=== PATIENT | male | born 1970 | race Caucasian/White ===

== ENCOUNTER 2023-02-24 13:20 | Outpatient (OUT) | payer OTHER, MEDICARE, SELFPAY ==
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
== END 2023-02-24 13:21 ==
LOC: RAD 13:24
PROVIDERS: Visit Provider Student in an Organized Health Care Education/Training Program
DX: M79.671 Pain in right foot (principal)
CPT/HCPCS: 73630

== ENCOUNTER 2024-08-29 03:38 | Emergency (ER) | payer MEDICARE, MEDICAID, SELFPAY ==
[2024-08-29 03:44] VITALS: BP 142/71; PULSE 93; TEMP 36.9; O2SAT 95; BMI 40.8
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
--- NOTE | 2024-08-29 04:20 | PC.NURSE ---
PATIENT ALERT AND ORIENTED. C/O BILAT FOOT PAIN DUE TO NEUROPATHY. STATES HE HAS TAKEN HIS PRESCRIBED PREGAMBLIN THHAT USUALLY KEEPS HIM AT BASELINE BUT THE MEDICATION HAS NOT BEEN ABLE TO CONTROL HIS PAIN FOR 3 DAYS. HE HAS NOT BEEN ABLE TO SLEEP. REPORTS PAIN 10/
[2024-08-29] MEDS: KETOROLAC TROMETHAMINE 60 MG/2 ML VIAL IM (04:30)
== END 2024-08-29 04:36 | disposition home or self-care (01) ==
PROVIDERS: Emergency Provider Emergency Medicine; PCP Family Medicine
DX: E11.40 Type 2 diabetes mellitus with diabetic neuropathy, unspecified (principal); Z79.4 Long term (current) use of insulin
CPT/HCPCS: 96372; 99284; J1885

== ENCOUNTER 2024-12-07 02:12 | Emergency (ER) | payer MEDICARE, MEDICAID, SELFPAY ==
[2024-12-07 02:16] VITALS: BP 186/95; PULSE 84; TEMP 36.5; O2SAT 98; BMI 38.5
--- OUTSIDE RECORDS SUMMARY | 2024-12-07 02:20 | XMS_ITS ---
Author Organization OHIP Support Name Relationship Address Phone JANN, TRESSA Spouse Unknown Unavailable JANN, TRESSA Spouse Unknown Unavailable JANN, TRESSA Spouse Unknown [phone] Jann, Tressa Spouse [address] [place] [address] + JANN, TRESSA Spouse Unknown Unavailable JANN, TRESSA Spouse Unknown Unavailable JANN, TRESSA Unknown Unknown +[phone] JANN, TRESSA Unknown Unknown +[phone] JANN, TRESSA Unknown Unknown +[phone] Jann, Tressa Spouse [address] [place] [address] + JANN, TRESSA Spouse Unknown Unavailable JANN, TRESSA Unknown Unknown +[phone] JANN, TRESSA Unknown Unknown +[phone] JANN, TRESSA Spouse Unknown +[phone] JANN, TRESSA Spouse Unknown +[phone] JANN, TRESSA Spouse Unknown +[phone] JANN, TRESSA Spouse Unknown +[phone] JANN, TRESSA Unknown Unknown +[phone] JANN, TRESSA Unknown Unknown +[phone] JANN, TRESSA Spouse Unknown +[phone] Jann, Tressa Spouse [address] [place] [address] + JANN, TRESSA Unknown Unknown +[phone] JANN, TRESSA Unknown Unknown +[phone] JANN, TRESSA Unknown Unknown +[phone] JANN, TRESSA Unknown Unknown +[phone] JANN, TRESSA Unknown Unknown +[phone] JANN, TRESSA Spouse Unknown +[phone] JANN, TRESSA Unknown Unknown +[phone] JANN, TRESSA Unknown Unknown +[phone] JANN, TRESSA Unknown Unknown +[phone] JANN, TRESSA Unknown Unknown [phone] JANN, TRESSA Unknown Unknown +[phone] JANN, TRESSA Unknown Unknown +[phone] JANN, TRESSA Unknown Unknown +[phone] JANN, TRESSA Unknown Unknown +[phone] JANN, TRESSA Unknown Unknown +[phone] JANN, TRESSA Unknown Unknown +[phone] JANN, TRESSA Spouse Unknown +[phone] JANN, TRESSA Unknown Unknown +[phone] JANN, TRESSA Unknown Unknown +[phone] JANN, TRESSA Unknown Unknown +[phone] JANN, TRESSA Unknown Unknown [phone] JANN, TRESSA Unknown Unknown +[phone] JANN, TRESSA Unknown Unknown +[phone] JANN, TRESSA Spouse Unknown +[phone] JANN, TRESSA Unknown Unknown +[phone] JANN, TRESSA Unknown Unknown +[phone] JANN, TRESSA Spouse Unknown +[phone] JANN, TRESSA Spouse Unknown +[phone] Jann, Tressa Spouse [address] [place] [address] + JANN, TRESSA Spouse Unknown +[phone] JANN, TRESSA Spouse Unknown +[phone] JANN, TRESSA Spouse Unknown +[phone] JANN, TRESSA Spouse Unknown +[phone] JANN, TRESSA Spouse Unknown +[phone] JANN, TRESSA Spouse Unknown +[phone] JANN, TRESSA Spouse Unknown +[phone] JANN, TRESSA Spouse Unknown +[phone] Jann, Tressa Spouse [address] [place] [address] + JANN, TRESSA Spouse Unknown +[phone] JANN, TRESSA Spouse Unknown +[phone] JANN, TRESSA Unknown Unknown +[phone] JANN, TRESSA Spouse Unknown +[phone] JANN, TRESSA Unknown Unknown +[phone] JANN, TRESSA Spouse Unknown +[phone] Jann, Tressa Spouse [address] [place] [address] + JANN, TRESSA Spouse Unknown +[phone] JANN, TRESSA Spouse Unknown +[phone] JANN, TRESSA Spouse Unknown +[phone] Care Team Providers Care Roll Contour Grinder Name Role Phone ADAMS TATE Attending Unavailable SIVAN DUARTE Attending Unavailable SIVAN DUARTE Referring Unavailable JENIFER, JUAN Referring Unavailable JENIFER, JUAN Referring Unavailable TRACE CARTERIN Attending Unavailable MOUKARBEL, MALI Admitting Unavailable MOUKARBEL, MALI Attending Unavailable YVONNE, BERTIN Referring Unavailable JENIFER, JUAN Referring Unavailable JENIFER, JUAN Referring Unavailable MOREL, KARENH Attending Unavailable MOREL, KARENH Attending Unavailable MOUKARBEL, MALI Attending Unavailable JENIFER, JUAN Attending Unavailable PERNE, JOY Attending Unavailable PERNE, JOY Attending Unavailable MOREL, KARENH Attending Unavailable JENIFER, JUAN Referring Unavailable MOUKARBEL, MALI Referring Unavailable CARTER, JIAWALLYIN Admitting Unavailable CARTER, TRACEIN Attending Unavailable ADAMS TATE Attending Unavailable HENLEY, JONEL Admitting Unavailable HENLEY, JONEL Attending Unavailable HENLEY, JONEL Referring Unavailable YVONNE, BERTIN Referring Unavailable YVONNE, BERTIN Referring Unavailable TED COOLEY Attending Unavailable PERGORDON, JOY Referring Unavailable IGGY HALL Attending Unavailable TRACE CARTERIN Attending Unavailable GI MONDRAGON Attending Unavailable PETKORINA IDANIA Maeve Referring Unavailable GI MONDRAGON Attending Unavailable GI MONDRAGON Attending Unavailable GI MONDRAGON Attending Unavailable GI MONDRAGON Attending Unavailable MELISSA MONDRAGONANDRA H Attending Unavailable GI MONDRAGON Attending Unavailable MELISSA MONDRAGONANDRA Sellers Attending Unavailable GI MONDRAGON H Attending Unavailable PETZNICK, IDANIA M Attending Unavailable MELISSA MONDRAGONANDRA Sellers Attending Unavailable MELISSA MONDRAGONANDRA Sellers Attending Unavailable MELISSA MONDRAGONANDRA H Attending Unavailable GI MONDRAGON H Attending Unavailable GI MONDRAGON H Attending Unavailable PETZNICK, IDANIA M Attending Unavailable GI MONDRAGON Attending Unavailable MELISSA MONDRAGONANDRA Marlo Attending Unavailable MELISSA MONDRAGONANDRA H Attending Unavailable PETZNICK, IDANIA M Attending Unavailable PETZNICK, IDANIA M Attending Unavailable PETZNICK, IDANIA M Referring Unavailable GI MONDRAGON Attending Unavailable PETZNICK, IDANIA M Attending Unavailable PETZNICK, IDANIA M Attending Unavailable PETZNICK, IDANIA M Referring Unavailable GI MONDRAGON Attending Unavailable PETZNICK, IDANIA M Attending Unavailable PETZNICK, IDANIA M Primary Care Unavailable PETZNICK, IDANIA Attending Unavailable PETZNICK, IDANIA Admitting Unavailable PETZNICK, IDANIA M Primary Care Unavailable MEREDITH KERR Attending Unavailable PETZNICK, IDANIA M Primary Care Unavailable PETZNICK, IDANIA M Primary Care Unavailable BASIL DE LOS SANTOS Attending Unavailable PETZNICK, IDANIA M Primary Care Unavailable PETZNICK, IDANIA M Primary Care Unavailable Venkat Burgos Attending Unavailable Petznick, Idania Primary Care Unavailable Venkat Burgos Admitting Unavailable KeisterTed Admitting Unavailable KeisterTed Attending Unavailable Petznick, Idania Primary Care Unavailable Delano Mondragon Admitting Unavailable Delano Mondragon Attending Unavailable Petznick, Idania Primary Care Unavailable Petznick, Idania Primary Care Unavailable Maxime Magana Admitting UnavailMaxime Worthy Attending UnavailChintan Finnegan Consulting Unavailable Jf Liu Consulting Unavailable Marielos Black Consulting Unavailable dAa Uriostegui Consulting Unavailable Yocasta Villalba Consulting Unavailable Gi Mondragon Consulting Unavailable Gi Mondragon Attending Unavailable Petlizbethick, Idania Primary Care Unavailable Gi Mondragon Admitting Unavailable Gi Mondragon Admitting Unavailable Gi Mondragon Attending Unavailable Petznick, Idania Primary Care Unavailable Purpose PROBLEMS DATE TYPE CONDITION / CODE ATTENDING STATUS [facility] 12/05/2024 Unknown Pain in right fo ot / M79.671(ICD-10) [facility] 12/05/2024 Unknown Other chronic pa in / G89.29(ICD-10) [facility] 12/05/2024 Unknown Pain in left blake t / M79.672(ICD-10) [facility] 11/27/2024 Unknown Localized swelli ng, 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, right lower limb / R22.41(ICD-10) Venkat Burgos [facility] 11/27/2024 Unknown Encounter for is maggie of repeat prescription / Z76.0(ICD-10) [facility] 11/27/2024 Unknown Med Refill / FREETEXT(AOF) [facility] 11/23/2024 Admitting Diagnosis Peripheral vascular disease, unspecified / I73.9(ICD-10) TED COOLEY [facility] 11/23/2024 Admitting Diagnosis Encounter for other preprocedural examination / Z01.818(ICD-10) COOLEY [facility] 11/23/2024 Admitting Diagnosis Type 2 diabetes mellitus with diabetic neuropathy, unspecified / E11.40(ICD-10) [facility] 11/23/2024 Admitting Diagnosis Type 2 diabetes mellitus with other diabetic neurological complication / E11.49(ICD-10) [facility] 11/23/2024 Admitting Diagnosis Neuralgia and neuritis, unspecified / M79.2(ICD-10) [facility] 10/31/2024 Admitting Diagnosis Type 2 diabetes mellitus with foot ulcer / E11.621(ICD-10) [facility] 10/31/2024 Admitting Diagnosis Non-pressure chronic ulcer of other part of right foot with unspecified severity / L97.519(ICD-10) [facility] 10/29/2024 Unknown Local infection of the skin and subcutaneous tissue, unspecified / L08.9(ICD-10) [facility] 10/29/2024 Unknown Cellulitis of ri ght lower limb / L03.115(ICD-10) [place] [facility] 10/29/2024 Unknown End stage renal disease / N18.6(ICD-10) [place] [facility] 10/29/2024 Unknown Dependence on re nal dialysis / Z99.2(ICD-10) [place] [facility] 10/29/2024 Unknown Hypertensive chr onic kidney disease with stage 5 chronic kidney disease or end stage renal disease / I12.0(ICD-10) [place] [facility] 10/29/2024 Unknown Type 2 diabetes mellitus with diabetic chronic kidney disease / E11.22(ICD-10) [facility] 10/29/2024 Unknown armament repairer (curre nt) use of insulin / Z79.4(ICD-10) Maxime Magana [facility] 10/25/2024 Unknown Type 2 diabetes mellitus with foot ulcer / E11.621(ICD-10) [facility], [facility] 10/25/2024 Unknown Non-pressure chr onic ulcer of other part of right foot with unspecified severity / L97.519(ICD-10) [facility], [facility] 10/25/2024 Unknown Type 2 diabetes mellitus with diabetic polyneuropathy / E11.42(ICD-10) [facility], [facility] 10/25/2024 Unknown Foot Pain / FREETEXT(AOF) [facility], [facility] 10/25/2024 Unknown Wound check / UNK(Unknown) [facility], [facility] 10/17/2024 Admitting Diagnosis Nonspecific urethritis / N34.1(ICD-10) LESLIE MOREL [facility] 09/12/2024 Admitting Diagnosis Generalized enlarged lymph nodes / R59.1(ICD-10) SIVAN DUARTE [facility] 09/05/2024 Admitting Diagnosis Post-op / 483() ERICK CARTER [facility] 08/28/2024 Unknown Pain in right lo wer leg / M79.661(ICD-10) Delano Mondragon [facility] 08/08/2024 Admitting Diagnosis Enlarged lymph nodes, unspecified / R59.9(ICD-10) ERICK CARTER [facility] 08/22/2024 Admitting Diagnosis Localized enlarged lymph nodes / R59.0(ICD-10) NA [facility] 08/22/2024 Admitting Diagnosis Abnormal findings on diagnostic imaging of other specified body structures / R93.89(ICD-10) [facility] 07/28/2024 Admitting Diagnosis Abnormal findings on diagnostic imaging of other abdominal regions, including retroperitoneum / R93.5(ICD-10) NA [facility] 07/11/2024 Admitting Diagnosis Encounter for preprocedural cardiovascular examination / Z01.810(ICD-10) MALI ALVAREZ [facility] 06/26/2024 Admitting Diagnosis Abnormal result of other cardiovascular function study / R94.39(ICD-10) MALI ALVAREZ [facility] 07/11/2024 Admitting Diagnosis Tobacco use / Z72.0(ICD-10) JENIFER [facility] 07/11/2024 Admitting Diagnosis Essential (primary) hypertension / I10(ICD-10) JENIFER [facility] 06/14/2024 Admitting Diagnosis End stage renal disease / N18.6(ICD-10) JENIFER [facility] 06/14/2024 Admitting Diagnosis Dependence on renal dialysis / Z99.2(ICD-10) JENIFER [facility] 06/14/2024 Admitting Diagnosis Type 2 diabetes mellitus with diabetic chronic kidney disease / E11.22(ICD-10) JENIFER [facility] 08/10/2022 Admitting Diagnosis Non-pressure chronic ulcer of other part of right foot with fat layer exposed / L97.512(ICD-10) JENIFER [facility] 07/11/2024 Admitting Diagnosis Encounter for follow-up examination after completed treatment for conditions other than malignant neoplasm / Z09(ICD-10) JENIFER [facility] 05/02/2022 Admitting Diagnosis Mixed hyperlipidemia / E78.2(ICD-10) MALI ALVAREZ [facility] 06/20/2024 Admitting Diagnosis Encounter for screening for malignant neoplasm of colon / Z12.11(ICD-10) JONEL HENLEY [facility] 05/15/2024 Unknown Anxiety disorder , unspecified / F41.9(ICD-10) Ted Cabrera [facility] 06/18/2022 Admitting Diagnosis 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(ICD-10) ADAMS TATE [facility] 06/18/2022 Admitting Diagnosis Male erectile dysfunction, unspecified / N52.9(ICD-10) ADAMS TATE [facility] 2024 Admitting Diagnosis Encounter for screening for malignant neoplasm of prostate / Z12.5(ICD-10) ADAMS TATE [facility] 2024 Admitting Diagnosis Chronic kidney disease, stage 4 (severe) / N18.4(ICD-10) ADAMS TATE [facility] 01/05/2024 Admitting Diagnosis Benign prostatic hyperplasia without lower urinary tract symptoms / N40.0(ICD-10) NA [facility] PROCEDURES No Procedure Records Found VITAL SIGNS No Vital Signs Records Found RESULTS 36 Observed: 12/05/2024 2:26 PM Status: COMPLETED Source: [facility] REPOSITORY Pt contacted clinic to be se en sooner to discuss pain medication. At the moment there is not any sooner appointment. Patient is on the cancellation list and patient also educated to contact clinic as well to ask for cancellations. 36 Observed: 12/05/2024 1:27 PM Status: COMPLETED Source: [facility] REPOSITORY Patient contacted clinic ronald elise and telegraphic typewriter operator chief let patient know of Dr. Cooley's response. Patient states he has increased his dose a long time ago and it is not working. Patient states he will contact his PCP to receive pain medication until he has the procedure. 36 Observed: 12/05/2024 12:24 PM Status: COMPLETED Source: [facility] REPOSITORY Spke with Dr Yasir simon and he would like patient to increase dose to 20mg nightly like discussed at visit. Public Relations Officer called and left message for patient with new dosing instructions. Public Relations Officer also stated that medication changes are not done over the phone and any further changes will need to be discussed at an office visit. 36 Observed: 12/04/2024 2:29 PM Status: COMPLETED Source: [facility] REPOSITORY Patient contacted clinic and wanted to let you know that the medication is not working for his pain. Patient states he has been on it for two weeks. TELEPHONE Observed: 12/04/2024 12:00 AM Status: COMPLETED Source: [facility] REPOSITORY [id number] Evans Forte 0 1970 M Date Provider Department Center 12/04/2024 [id number] RIVERO PAIN [facility] Family History Problem Relation Age of Onset Breast cancer Mother Comments: age 53, METS to brain Heart disease Father Heart attack Father Comments: age 26 No Known Problems Sister Comments: half-sister Breast cancer Maternal Grandmother Crohn's disease Daughter Comments: perforated bowel Cancer Father's Brother Comments: Unknown type and region Family Status - Relation Status Age at Mother Father Sister Maternal Grandmother Daughter Father's Brother Alive US VENOUS DUPLEX LE RT Observed: 025 3:28 PM Status: COMPLETED Source: [facility] REPOSITORY [facility] [place] [address] [place] [address] Ultrasound Report Signed Patient: Evans Forte MR#: [id number] : 1970 Acct:[id number] Age/Sex: 54 / M ADM Date: 11/27/24 Loc: ER Room: Type: [facility] ER Attending Dr: Ordering Provider: Venkat Burgos DO Date of Service: 11/27/24 US/US venous duplex LE RT: right leg swelling Copies to: Venkat Burgos DO RIGHT LOWER EXTREMITY VENOUS DUPLEX INDICATION: Painful swollen legs Unilateral right lower extremity venous duplex Doppler study was obtained utilizing B-mode, color- flow and spectral Doppler. FINDINGS: The right common femoral, femoral, and popliteal veins showed adequate compressibility, color-flow and augmentation. The right posterior tibial veins were compressible, as well as proximal greater saphenous vein. The peroneal veins are not well visualized. The contralateral left common femoral vein was compressible with color-flow and augmentation. US/US venous duplex LE RT IMPRESSION: NO EVIDENCE OF DEEP VENOUS THROMBOSIS IN THE RIGHT LOWER EXTREMITY. NO SUPERFICIAL THROMBOPHLEBITIS WAS NOTED. Impression dictated by: Ramirez Jean M.D.11/28/2024 3:29 PM Dictation Location: [id number] Tech: Olamide Munoz Transcribed By: CATHLEEN 11/28/24 1529 Dictated By: Ramirez Jean MD 11/28/24 1528 Signed By: <Electronically signed by MD Ramirez Jean in OV> 11/28/24 1529 COMPLETE BLOOD COUNT AUTO DIFF Collected: 11/27/2024 11:01 PM Status: F Source: [facility] REPOSITORY TYPE CODE TESTS RESULT OUT OF RANGE REFERENCE UNITS LAB WBC White Blood Count 10.6 High 4.1-10.5 10*3/uL LAB UNWBC Uncorrected WBC 10.6 High 4.1-10.5 10*3/uL LAB RBC Red Blood Count 3.95 Normal 3.90-5.60 10*6/u L LAB HGB Hemoglobin 12.1 Low 13.0-17.0 g/dL LAB HCT Hematocrit 35.6 Low 38.8-50.0 % LAB MCV Mean Corpuscular Volume 90.1 Normal 83.5-101 fL LAB MCH Mean Corpuscular Hemoglobin 30.6 Normal 27.5-35.2 pg LAB MCHC Mean Corpuscular HGB Conc 33.9 Normal 32.5-35.6 g/dL LAB RDW Red Cell Distribution Width 15.0 High 12.0-14.8 % LAB PLT Platelet Count 400 Normal 150-450 10*3/uL LAB MPV Mean Platelet Volume 7.0 Normal 6.6-10.1 fL LAB MDW Monocyte Distribution Width 18.22 Normal 0.00-20.00 % LAB NE% Neutrophils % (Auto) 69.6 . % LAB LY% Lymphocytes % (Auto) 14.1 . % LAB MO% Monocytes % (Auto) 9.3 . % LAB EO% Eosinophils % (Auto) 6.0 . % LAB BA% Basophils % (Auto) 1.0 . % LAB NRBC% NRBC% 0.0 Normal 0-0.5 /100{WBC } LAB NE# Neutrophils # (Auto) 7.4 Normal 1.8-7.7 10*3/uL LAB LY# Lymphocytes # (Auto) 1.5 Normal 1.00-4.8 10*3/uL LAB MO# Monocytes # (Auto) 1.0 High 0.0-0.8 10*3/uL LAB EO# Eosinophils # (Auto) 0.6 High 0.0-0.45 10*3/uL LAB BA# Basophils # (Auto) 0.1 Normal 0.0-0.2 10*3/uL Performed By: #### CBC, ESR, CRP, BMP #### [facility] [address] [id number] [facility] ERYTHROCYTE SEDIMENTATION RATE Collected: 11/27/2024 11:01 PM Status: F Source: [facility] REPOSITORY TYPE CODE TESTS RESULT OUT OF RANGE REFERENCE UNITS LAB ESR Erythrocyte Sedimentation Rate 122 High 0-19 Result Comment: PERFORMED BY : [place] [id number] PATHOLOGIST BELL PERSON KIM ELLIOTT M.D. Performed By: #### CBC, ESR, CRP, BMP #### [facility] [address] [id number] [facility] BASIC METABOLIC PANEL Collected: 2024 11:01 PM Status: F Source: [facility] REPOSITORY TYPE CODE TESTS RESULT OUT OF RANGE REFERENCE UNITS LAB GLU Glucose 199 High 70-100 mg/dL Result Comment: Random Gluco se Reference Range is dependent on time and content of last meal. Glucose of more than 200 mg/dL in a nonstressed, ambulatory subject supports the diagnosis of Diabetes Mellitus. ADA recommended reference range LAB BUN Blood Urea Nitrogen 47 High 7-25 mg/dL LAB CREATT Creatinine 6.56 High 0.70-1.30 mg/dL LAB GFReNR Estimated GFR 9.418 mL/Min LAB NA Sodium 131 Low 136-145 mmol/L LAB K Potassium 3.9 Normal 3.5-5.1 mmol/L LAB CL Chloride 93 Low 98-107 mmol/L LAB CO2 Carbon Dioxide 24.7 Normal 21.0-31.0 mmol/L LAB GAP Anion Gap 17.2 High 6.0-15.0 meq/L LAB CA Calcium 9.1 Normal 8.6-10.3 mg/dL LAB CRCLPHA Creatinine Clr Calc Pharmacy 19.67 Performed By: #### CBC, ESR, CRP, BMP #### [facility] [address] [id number] [facility] C-REACTIVE PROTEIN Collected: 11:01 PM Status: F Source: [facility] REPOSITORY TYPE CODE TESTS RESULT OUT OF RANGE REFERENCE UNITS LAB CRP C-Reactive Protein 2.8 High 0.0-0.5 mg/dL Result Comment: PERFORMED BY : [place] [id number] PATHOLOGIST BELL PERSON KIM ELLIOTT M.D. Performed By: #### CBC, ESR, CRP, BMP #### [facility] [address] [id number] [facility] OFFICE VISIT Observed: 11/23/2024 1:30 PM Status: COMPLETED Source: [facility] REPOSITORY [id number] JannEvans B 0 1970 Date Provider Department Center 11/23/2024 TED WARREN PAIN [facility] Family History Problem Relation Age of Onset Breast cancer Mother Comments: age 53, METS to brain Heart disease Father Heart attack Father Comments: age 26 No Known Problems Sister Comments: half-sister Breast cancer Maternal Grandmother Crohn's disease Daughter Comments: perforated bowel Cancer Father's Brother Comments: Unknown type and region Family Status - Relation Status Age at Mother Father Sister Maternal Grandmother Daughter Father's Brother Alive Level of Service:90940 UT OFFICE/OUTPATIENT NEW MODERATE MDM 45 MINUTES (GC) Reason for Visit and Comments: New Patient [[id number]] - Neuropathy PROGRESS Observed: 11/23/2024 1:30 PM Status: COMPLETED Source: [facility] REPOSITORY Attestation signed by Ted Cooley MD at 11/24/2024 11:22 AM By using the attestations below, the signing clinician agrees that I have read and verify that the documentation has been personally reviewed by me and ensure that the documentation accurately reflects the encounter. GC: I personally saw this patient on the day of the encounter, performed the ceja portion(s) of the service and participated in the management and confirm the resident's documentation. Please note there may be an additional personal documentation from me. Additional Comments: Diagnosis Plan 1. Chronic painful diabetic neuropathy (CMS/HCC) amitriptyline (Elavil) 10 mg tablet 2. Diabetic neuropathy with neurologic complication (CMS/HCC) Ambulatory referral to Pain Medicine 3. Neuropathic pain MR thoracic spine wo contrast MR lumbar spine wo contrast amitriptyline (Elavil) 10 mg tablet 4. Preop examination MR thoracic spine wo contrast MR lumbar spine wo contrast 5. PVD (peripheral vascular disease) 6. Peripheral artery disease SPINAL CORD STIMULATOR (SCS): Patient has intractable pain and fulfilled ALL of the followin. Failed six months of conservative treatment modalities (pharmacologic (gabapentin, lyrica, cymbalta, qutenza, no surgical indication for diabetic neuropathy, psychologic or physical), if appropriate and not contraindicated. 2. Further surgical intervention is not indicated. 3. Psychological evaluation will be obtained with documentation clearly stating the patient is an appropriate candidate for SCS from a mental health perspective. 4. No contraindications to implantation exist such as sepsis or coagulopathy. 5. There are objective findings of pathology based on examination and/or imaging. 6. We had an extensive discussion with the patient about the SCS device, including the trial and implantation processes. We plan to have a percutaneous SCS trial. The trial will last for approximately 7 days. A SCS trial is successful if: 50% or more reduction in pain for at least two days; and improvement in functional status of the patient. If a successful trial, the permanent electrodes are placed at the same levels where the trial produced relief. [facility] [place] [address] Referral Source: self-referral, found spinal cord stimulator information online CC: Chief Complaint Patient presents with New Patient Neuropathy SUBJECTIVE: Evans Forte is a 54 y.o. male who presents for initial consultation chronic pain of the bilateral feet, right greater than left. The patient has had this pain for 10+ years . Initiating event was reported as no acute injury but chronic uncontrolled diabetes for 30+ years. Pain is located in the bilateral feet, right greater than left and is nonradicular. The pain has gradually worsened over time and is inadequately controlled at this time.. The pain quality is described as a burning pain. The pain is constant and can be consistent throughout the day no matter the activity, especially worse at night, however can spontaneously resolve. Today, the pain intensity is rated as a 10 on a scale of 0-10. Patient reports associated symptoms of numbness and tingling. Pain is alleviated with opioid medications. Pain is exacerbated with standing, walking, and sleeping. Pain interferes with ADLs. The patient reports sometimes 0 hours of uninterrupted sleep per night. He denies history of back issues, back surgery, radicular back pain. Medical history is significant for ESRD on dialysis Wednesday, pending kidney transplant, venous stasis, lymphedema, chronic right lower extremity ulcer, 30+ year history of diabetes mellitus, Charcot foot on the right status post surgical intervention, hyperlipidemia, hypertension, hypothyroidism, insomnia, neuropathy, obesity, pancreatitis, peripheral artery disease. Treatments previously trialed: patient has trialed tramadol with intermittent relief, Qutenza x 2 over 6 months without adequate relief longer than 1 week duration, [place] with fair relief, Lyrica with inadequate relief, gabapentin with inadequate relief, trazodone with inadequate relief, lorazepam with inadequate relief, Cymbalta with inadequate relief Pain Assessment Pain Assessment: 0-10 Pain Score: 10 - Worst possible pain Pain Type: Chronic pain, Neuropathic pain Pain Location: Foot Pain Orientation: Right, Left Pain Descriptors: Burning, Pins and needles, Tingling Pain Frequency: Constant/continuous Pain Onset: Ongoing Date Pain First Started: (> 10 years) Aggravating Factors: Walking, Standing Pain Interventions: Medication (See MAR) Response to Interventions: Lyrica, Gabapentin Past Medical History: Diagnosis Date Adrenal nodule left adrenal adenoma Anemia Anxiety Charcot foot due to diabetes mellitus ([facility]/HCC) Right, s/p reconstructive surgery Chronic sinusitis COVID-19 08/2023 Diabetic foot ulcers ([facility]) right Diabetic polyneuropathy ([facility]) Diabetic retinopathy ([facility]/HCC) ED (erectile dysfunction) ESRD (end stage renal disease) ([facility]) 11/23/2022 GERD (gastroesophageal reflux disease) Glaucoma History of tobacco use Hyperlipidemia Hypertension Hypogonadism in male Hypothyroidism Insomnia Neuropathy Obesity Osteomyelitis of ankle or foot, left, acute ([facility]) Pancreatitis x2 Past history of chewing tobacco use Peripheral artery disease Proteinuria Sleep apnea Type 2 diabetes mellitus ([facility]/HCC) Vitamin D deficiency Patient Active Problem List Diagnosis Adenoma of left adrenal gland History of pancreatitis Open wound of left foot Type 2 diabetes mellitus ([facility]/HCC) Charcot's joint of foot Hypertension, essential Acquired hypothyroidism Hyperlipidemia Vitamin D deficiency Libido, decreased Erectile dysfunction Hypogonadism male Diabetic neuropathic arthropathy ([facility]/HCC) Diabetic neuropathy with neurologic complication ([facility]/HCC) End stage renal disease ([facility]/HCC) Glaucoma Hypoglycemia due to type 2 diabetes mellitus ([facility]/HCC) Iron deficiency anemia 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, 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, trunk halfway current use of insulin (CMS/HCC) Microalbuminuria Mild left ventricular systolic dysfunction Morbid obesity ([facility]/HCC) Obstructive sleep apnea syndrome Osteomyelitis ([facility]/HCC) Polyneuropathy due to type 2 diabetes mellitus ([facility]/HCC) Ulcer of right foot with fat layer exposed ([facility]) Pure hypercholesterolemia 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, unspecified eye ([facility]) PVD (peripheral vascular disease) Adrenal nodule Anxiety Insomnia Osteomyelitis of left foot ([facility]/HCC) Diabetic retinopathy ([facility]) Past history of chewing tobacco use Mild nonproliferative diabetic retinopathy associated with type 2 diabetes mellitus ([facility]/HCC) Diabetic foot ulcers ([facility]) Chronic sinusitis COVID-19 Anemia Preop examination Cardiovascular stress test abnormal Current tobacco use Enlarged lymph node Lymphedema Venous stasis dermatitis Neuropathic pain Past Surgical History: Procedure Laterality Date AV FISTULA PLACEMENT 09/2023 Left arm AV fistula CARDIAC CATHETERIZATION 07/15/2018 Normal coronary arteries. Normal left ventricular function. False positive stress perfusion exam. COLONOSCOPY 09/03/2022 3 polyps status post polypectomy ranging from 6mm to 1-1/2 cm. Poor prep COLONOSCOPY 06/18/2022 Poor prep COLONOSCOPY 02/22/2024 FOOT SURGERY Right 12/05/2018 multple INSERTION / REMOVAL / REPLACEMENT VENOUS ACCESS CATHETER 09/16/2023 Hemodialysis catheter PERITONEAL CATHETER INSERTION 11/06/2022 PERITONEAL CATHETER REMOVAL 10/13/2023 TOE AMPUTATION Left Left lesser toe WOUND DEBRIDEMENT Right 12/24/2023 WOUND DEBRIDEMENT WITH APPLICATION OF BILAYER SKIN GRAFT RIGHT WOUND DEBRIDEMENT Right 01/24/2024 Ulceration to the right heel and 1st MPJ WOUND DEBRIDEMENT Right 02/29/2024 Ulceration to the right heel and 1st MPJ WOUND DEBRIDEMENT Right 03/30/2024 Ulceration to the right heel and 1st MPJ WOUND DEBRIDEMENT Right 05/04/2024 Ulceration to the right heel and 1st MPJ WOUND DEBRIDEMENT Right 05/18/2024 Ulceration to the right heel and 1st MPJ WOUND DEBRIDEMENT Right 06/08/2024 plantar medial right heel Allergies Allergen Reactions Adhesive Tape-Silicones Rash Latex Rash If on for long periods of time Vancomycin Hives Other reaction(s): Unknown Adhesive Rash Haloperidol Anxiety Kintyre Oil GI intolerance Runny nose, watery eyes Family History Problem Relation Name Age of Onset Breast cancer Mother age 53, METS to brain Heart disease Father Evans gifford Heart attack Father Evans gifford age 26 No Known Problems Sister half-sister Breast cancer Maternal Grandmother Crohn's disease Daughter perforated bowel Cancer Father's Brother Unknown type and region Review of Systems Constitutional: Negative for activity change, appetite change, chills, fatigue and fever. Cardiovascular: Positive for leg swelling (right leg > left leg). Musculoskeletal: Bilateral foot pain Objective BP 138/77 Pulse 80 Ht 1.88 m (6' 2 ) Wt (!) 147 kg (324 lb) BMI 41.60 kg/m??? Physical Exam Vitals reviewed. Constitutional: Appearance: He is obese. Pulmonary: Effort: Pulmonary effort is normal. Musculoskeletal: General: No tenderness. Normal range of motion. Right lower leg: Edema present. Left lower leg: Edema present. Comments: 2+ pitting edema bilaterally into the foot Charcot deformity right foot with prior dorsal scar well-healed Skin: General: Skin is warm and dry. Comments: Skin to plantar aspect right foot thick with callus over prior graft site from ulcer Venous stasis, stasis dermatitis with variable color change to skin Neurological: General: No focal deficit present. Mental Status: He is alert. Sensory: No sensory deficit. Motor: No weakness (Strength 5 out of 5 bilateral upper and lower extremities Ceja muscles tested). Deep Tendon Reflexes: Reflexes abnormal (Diminished throughout). Comments: Romberg negative for corrections but notable swaying Hammertoe deformity to the left foot digits 2, 3, 4 and 5 Decreased proprioception, dysesthesias Psychiatric: Mood and Affect: Mood normal. Behavior: Behavior normal. Thought Content: Thought content normal. Judgment: Judgment normal. No results found for this or any previous visit from the past 360 days. Assessment/Plan Diagnoses and all orders for this visit: Chronic painful diabetic neuropathy (CMS/HCC) - amitriptyline (Elavil) 10 mg tablet; Take 1 tablet (10 mg) by mouth at bedtime. Diabetic neuropathy with neurologic complication (CMS/HCC) - Ambulatory referral to Pain Medicine Neuropathic pain - MR thoracic spine wo contrast; Future - MR lumbar spine wo contrast; Future - amitriptyline (Elavil) 10 mg tablet; Take 1 tablet (10 mg) by mouth at bedtime. Preop examination - MR thoracic spine wo contrast; Future - MR lumbar spine wo contrast; Future PVD (peripheral vascular disease) Peripheral artery disease Discussed chronic pain, medication use, treatment goals. Medication risk and benefits discussed. The Spine Diagram and Test results were used to explain the condition. PLAN: 1. Given patient's previously trialed and failed conservative measures without having trialed TCAs in the past, recommend initiating Elavil 10 mg nightly. Patient should trial this medication for at least 1 week prior to increasing up to 20 mg nightly. He was advised that this medication may result in somnolence and he should not combine this at least initially with trazodone until he knows how he responds to this medication. He was also counseled not to take Elavil in conjunction with lorazepam or tramadol if he has these medications available to him still. He was also advised that this medication may cause dry mouth and if this is tolerable, he could increase his dose to 20 mg. He should not exceed 20 mg nightly until he sees our office again. Prescription written and sent to pharmacy of choice. 2. Patient could also be considered for Nucynta if chronic opioid therapy is medically recommended. Dosage would be at lowest dose effective for the patient. Patient has thus far tolerated opioid therapy however has had lack of efficacy in the past. 3. Discussed options of spinal cord stimulation for which patient is an excellent candidate due to his chronic painful diabetic neuropathy which has been refractory to multiple medications listed above and conservative measures over the last 10 years. Patient would be an appropriate candidate for Nevro spinal cord stimulator. Patient is agreeable to consideration of spinal cord stimulator and initiating procedure for SCS trial. Patient does have a diabetic foot ulcer which is in stages of healing and he follows with wound care. Patient also has hemoglobin A1c 6.1, blood sugars well-controlled. 4. Prior to SCS trial, patient will need to obtain implantable device psychologic evaluation, patient is agreeable 5. Patient agreeable to ODS in office 6. PDMP pulled and reviewed. 7. MRI without contrast of thoracic and lumbar spine ordered for pre-operative/pre-procedure planning 5. RTC in 3-4 weeks All questions are answered, and the patient expresses a full understanding. Available imaging was reviewed with patient and discussed likelihood of pain generator and plan to evaluate and treat. Discussed risks, benefits, and alternatives of interventional procedures (including but not limited to bleeding, infection, adverse reaction to medications and ineffective pain relief) as well as medication dosage, usage, goals of therapy, and side effects. Written instructions and verbal health teaching given to patient, patient verbalizes understanding and agrees with the treatment plan. Documented by: Elisa Colunga MD [facility] PM&R PGY-4 Please note that portions of this note were generated using voice recognition M*KartoonArt dictation software. Although every effort was made to ensure the accuracy of this automated cloth burler, some errors in cloth burler may have occurred. PROGRESS Observed: 11/07/2024 11:30 AM Status: COMPLETED Source: [facility] REPOSITORY Date of Telehealth Visit: 11/07/2024 Follow up on right foot wound and LAP HPI The visit was conducted [id number] with the use of audio and video technology using HIPAA approved Zoop System between patient and the provider for a virtual visit. Verbal consent to provide and bill this service was obtained on: 11/07/24 Patient Location: Patient Home I spent 11 minutes of total time on the day of the visit. This time was spent preparing for the visit, obtaining and reviewing any outside history/data, taking a history, performing an exam/evaluation, counseling and educating patient/family about the diagnosis and plan, performing medical decision making, referring to and communicating with other health care referrals, independently interpreting results and documenting in the EMR, and coordinating care. Please see the additional documentation in this note for specific details. Mr. Forte is a 54 year old male patient with ESRD on HD, in process of renal transplant evaluation, has long standing right heel wound, and found to have right groin LAP, sp biopsy came back negative for malignancy, last visit I communicated with vascular and we sat a follow up appointment for him with them, he reports his wound is improving, denies any drainage or surrounding erythema ROS of system negative except what's mentioned in HPI Physical exam Right heel still has some callus formation, from limited exam no drainage Assessment and plan: DFU Groin LN Negative RPR, cryptococcus, histoplasma, blasto, CG, and HIV along with bartonella serologies This LAP likely related to his DFU He has follow up with oncology soon If no suspicion of malignancy, can wait to repeat images till wound has healed, since his infectious work up came back negative He continues to follow with wound care, waiting on his shoes to improve healing Tight glycemic control RTC in 2 months Leslie Morel MD Infectious diseases TELEMEDICINE Observed: 11/07/2024 11:30 AM Status: COMPLETED Source: [facility] REPOSITORY [id number] Evans Forte 0 1970 M Date Provider Department Center 11/07/2024 LESLIE GUZMÁN [facility] INF [facility] Family History Problem Relation Age of Onset Breast cancer Mother Comments: age 53, METS to brain Heart disease Father Heart attack Father Comments: age 26 No Known Problems Sister Comments: half-sister Breast cancer Maternal Grandmother Crohn's disease Daughter Comments: perforated bowel Cancer Father's Brother Comments: Unknown type and region Family Status - Relation Status Age at Mother Father Sister Maternal Grandmother Daughter Father's Brother Alive Level of Service:73511 [place] OFFICE/OUTPATIENT ESTABLISHED SF MDM 10 MIN (95) FOLLOW-UP Observed: 10/31/2024 1:30 PM Status: COMPLETED Source: [facility] REPOSITORY [id number] Evans Forte 0 1970 M Date Provider Department Center 10/31/2024 JOY LYONS C WOUND [facility] Family History Problem Relation Age of Onset Breast cancer Mother Comments: age 53, METS to brain Heart disease Father Heart attack Father Comments: age 26 No Known Problems Sister Comments: half-sister Breast cancer Maternal Grandmother Crohn's disease Daughter Comments: perforated bowel Cancer Father's Brother Comments: Unknown type and region Family Status - Relation Status Age at Mother Father Sister Maternal Grandmother Daughter Father's Brother Alive Level of Service:34573 UT OFFICE/OUTPATIENT ESTABLISHED MOD MDM 30 MIN PROGRESS Observed: 10/31/2024 1:30 PM Status: COMPLETED Source: [facility] REPOSITORY Patient was seen today in wo und clinic. Documentation is provided in [facility] wound care documenting system. See Intellicure note for full details. Right heel DFU with significant callus to germán wound He has been going to podiatry for callus paring every other week for awhile now States he has had CTP applied previously by podiatry He does not have diabetic shoes now as he was told his foot wound needs to heal first History of orthopedic surgery on his right foot He has an unsteady gait Patient is ambulatory, has a weakness or deformity of the foot and ankle. Patient requires stabilization of the foot or ankle and has the potential to improve mobility and or functionally by using a boot. Precerted for Foot Defender; not yet delivered to patient Debrided heel ulcer with scissors which he tolerated well Topical tx: continue vashe soak, mesalt, gauze, ABD, kerlix daily. Silvasorb to germán wound callus and callus to forefoot Palpable DP so holding off on arterial studies He has protein supplements; high protein diet and tightly control blood glucose to optimize wound healing. He likely can't get kidney transplant until his ulcer closes. RTC 2-3 weeks GDMT for PAD: asa, statin GLUCOSE POCT GLUCOMETERS Collected: 10/29/2024 10:46 PM Status: F Source: [facility] REPOSITORY TYPE CODE TESTS RESULT OUT OF RANGE REFERENCE UNITS LAB GLUPOC Glucose Poc Glucometers 244 mg/dL Result Comment: Random Gluco se Reference Range is dependent on time and content of last meal. Glucose of more than 200 mg/dL in a nonstressed, ambulatory subject supports the diagnosis of Diabetes Mellitus. PERFORMED BY: [address] [address] PATHOLOGIST BELL PERSON KIM ELLIOTT M.D. Performed By: #### GLULS ### # Point of Care testing , BLOOD CULTURE Observed: 10/29/2024 6:34 PM Status: F Source: [facility] REPOSITORY NO GROWTH 5 DAYS PERFORMED BY: [address] [place] [address] PATHOLOGIST BELL PERSON KIM ELLIOTT M.D. Performed By: #### CUBLD ### # [address] [place] [address] [facility] LACTIC ACID Collected: 6:14 PM Status: F Source: [facility] REPOSITORY TYPE CODE TESTS RESULT OUT OF RANGE REFERENCE UNITS LAB LACTIC Lactic Acid 1.0 Normal 0.5-1.9 mmol/L Result Comment: Lactic Acid reference range has been updated to 0.5 ? 1.9 mmol/L and the critical range of 2.0 or greater. PERFORMED BY: [facility] [address] [id number] PATHOLOGIST BELL PERSON KIM ELLIOTT M.D. Performed By: #### CMP, CBC, ESR, LACTIC, CRP #### [facility] [address] [id number] [facility] COMPLETE BLOOD COUNT AUTO DIFF Collected: 10/29/2024 6:14 PM Status: F Source: F [facility] REPOSITORY TYPE CODE TESTS RESULT OUT OF RANGE REFERENCE UNITS LAB WBC White Blood Count 10.1 Normal 4.1-10.5 10*3/uL LAB UNWBC Uncorrected WBC 10.1 Normal 4.1-10.5 10*3/uL LAB RBC Red Blood Count 3.89 Low 3.90-5.60 10*6/u L LAB HGB Hemoglobin 12.1 Low 13.0-17.0 g/dL LAB HCT Hematocrit 35.5 Low 38.8-50.0 % LAB MCV Mean Corpuscular Volume 91.2 Normal 83.5-101 fL LAB MCH Mean Corpuscular Hemoglobin 31.2 Normal 27.5-35.2 pg LAB MCHC Mean Corpuscular HGB Conc 34.2 Normal 32.5-35.6 g/dL LAB RDW Red Cell Distribution Width 14.3 Normal 12.0-14.8 % LAB PLT Platelet Count 368 Normal 150-450 10*3/uL LAB MPV Mean Platelet Volume 6.7 Normal 6.6-10.1 fL LAB MDW Monocyte Distribution Width 13.40 Normal 0.00-20.00 % LAB NE% Neutrophils % (Auto) 74.5 . % LAB LY% Lymphocytes % (Auto) 14.2 . % LAB MO% Monocytes % (Auto) 6.8 . % LAB EO% Eosinophils % (Auto) 3.4 . % LAB BA% Basophils % (Auto) 1.1 . % LAB NRBC% NRBC% 0.0 Normal 0-0.5 /100{WBC } LAB NE# Neutrophils # (Auto) 7.5 Normal 1.8-7.7 10*3/uL LAB LY# Lymphocytes # (Auto) 1.4 Normal 1.00-4.8 10*3/uL LAB MO# Monocytes # (Auto) 0.7 Normal 0.0-0.8 10*3/uL LAB EO# Eosinophils # (Auto) 0.3 Normal 0.0-0.45 10*3/uL LAB BA# Basophils # (Auto) 0.1 Normal 0.0-0.2 10*3/uL Performed By: #### CMP, CBC, ESR, LACTIC, CRP #### [address] ERYTHROCYTE SEDIMENTATION RATE Collected: 10/29/2024 6:14 PM Status: F Source: [facility] REPOSITORY TYPE CODE TESTS RESULT OUT OF RANGE REFERENCE UNITS LAB ESR Erythrocyte Sedimentation Rate 74 High 0-19 Result Comment: PERFORMED BY : [place] [address] PATHOLOGIST BELL PERSON KIM ELLIOTT M.D. Performed By: #### CMP, CBC, ESR, LACTIC, CRP #### [address] COMPREHENSIVE METABOLIC PANEL Collected: 10/29/2024 6 :14 PM Status: F Source: [facility] REPOSITORY TYPE CODE TESTS RESULT OUT OF RANGE REFERENCE UNITS LAB GLU Glucose 259 High 70-100 mg/dL Result Comment: Random Gluco se Reference Range is dependent on time and content of last meal. Glucose of more than 200 mg/dL in a nonstressed, ambulatory subject supports the diagnosis of Diabetes Mellitus. ADA recommended reference range LAB BUN Blood Urea Nitrogen 78 High 7-25 mg/d L LAB CREATT Creatinine 9.58 High 0.70-1.30 mg/dL LAB GFReNR Estimated GFR 5.978 mL/Min LAB NA Sodium 138 Normal 136-145 mmol/L LAB K Potassium 4.4 Normal 3.5-5.1 mmol/L LAB CL Chloride 100 Normal 98-107 mmol/L LAB CO2 Carbon Dioxide 25.8 Normal 21.0-31.0 mmol/L LAB GAP Anion Gap 16.6 High 6.0-15.0 meq/L LAB CA Calcium 9.4 Normal 8.6-10.3 mg/dL LAB TP Total Protein 8.2 Normal 6.4-8.9 g/dL LAB ALB Albumin Level 4.3 Normal 3.5-5.7 g/dL LAB GLOB Globulin 3.9 g/dL LAB AGRATIO Albumin/Globulin Ratio 1.1 LAB BILIT Bilirubin,Total 0.4 Normal 0.3-1.0 mg/dL LAB AST Aspartate Amino Transferase 7 Low 13-39 U/L LAB ALT Alanine Aminotransferase 11 Normal 7-52 U/L LAB ALP Alkaline Phosphatase 90 Normal 34-104 U/L LAB CRCLPHA Creatinine Clr C alc Pharmacy 13.36 Performed By: #### CMP, CBC, ESR, LACTIC, CRP #### [place] [address] [place] C-REACTIVE PROTEIN Collected: 6:14 PM Status: F Source: [facility] REPOSITORY TYPE CODE TESTS RESULT OUT OF RANGE REFERENCE UNITS LAB CRP C-Reactive Protein 1.5 High 0.0-0.5 mg/dL Result Comment: PERFORMED BY : [place] [address] PATHOLOGIST BELL PERSON KIM ELLIOTT M.D. Performed By: #### CMP, CBC, ESR, LACTIC, CRP #### [address] [address] [facility] BLOOD CULTURE Observed: 10/29/2024 6:14 PM Status: F Source: [facility] REPOSITORY NO GROWTH 5 DAYS PERFORMED BY: [place] [address] PATHOLOGIST BELL PERSON KIM ELLIOTT M.D. Performed By: #### CUBLD ### # [facility] [address] [place], [place] [id number] [facility] XR FOOT RT MIN 3V* Observed: 10/29/2024 6:11 PM Status: COMPLETED Source: [facility] REPOSITORY [facility] [address] [place] [id number] XRay Report Signed Patient: Evans Forte MR#: [id number] : 1970 Acct:[id number] Age/Sex: 54 / M ADM Date: 10/29/24 Loc: ER Room: Type: [facility] ER Attending Dr: Copies to: Will Cerna PA-C Ordering Provider: Will Cerna PA-C Date of Service: 10/29/24 XR/XR foot RT min 3V*: Possible acute vs chronic osteomyelitis RIGHT FOOT - 3 views CLINICAL HISTORY: Wound along the inferior calcaneus and first metatarsal, increased pain and redness and drainage COMPARISON: 11/21/2023 FINDINGS: Stable first tarsometatarsal junction fixation throughout the tarsal bones subtalar fixation. Hardware appears intact. Diffuse soft tissue swelling. No bony erosions. XR/XR foot RT min 3V* IMPRESSION: STABLE POSTSURGICAL CHANGES WITHOUT DEFINITE ACUTE OSSEOUS ABNORMALITY. DIFFUSE SOFT TISSUE SWELLING Impression dictated by: Derrick aSeed M.D.10/29/2024 6:14 PM Dictation Location: [place] [address] Transcribed By: [facility] 10/29/241813 Dictated By: Derrick Saeed MD 10/29/241810 Signed By: <Electronically signed by Derrick Saeed MD in OV> 10/29/241813 ECG 12 LEAD ECG Observed: 10/29/2024 4:43 PM Status: COMPLETED Source: [facility] REPOSITORY [facility] Main [place] [address] [place] [id number] Electrocardiograph Report Signed Patient: Evans Forte MR#: [id number] : 1970 Acct:[id number] Age/Sex: 54 / M ADM Date: 10/29/24 Loc: Room: [address] [place] [address] Type: ADM IN Attending Dr: Maxime Magana DO Ordering Provider: Will Cerna PA-C Date of Service: 10/29/24 ECG/ECG 12 lead ECG: Skin/Abscess/Foreign Body Copies to: Test Reason : Blood Pressure : */* mmHG Vent. Rate : 69 BPM Atrial Rate : 69 BPM P-R Int : 154 ms QRS Dur : 96 ms QT Int : 416 ms P-R-T Axes : 54 17 62 degrees QTcB Int : 445 ms Normal sinus rhythm Normal ECG When compared with ECG of 25-Nov-2023 14:40, No significant change was found Confirmed by JEY SALGADO DO ([id number]) on 10/30/2024 1:34:21 AM Referred By: Electronically Signed By: JEY SALGADO DO Transcribed By: MUS Signed By Jey Salgado DO 10/30 0134 29 Observed: 10/17/2024 1:45 PM Status: COMPLETED Source: [facility] REPOSITORY Addended by: MARI HANSEN on: 10/24/2024 03:37 PM Modules accepted: Orders OFFICE VISIT Observed: 10/17/2024 1:45 PM Status: COMPLETED Source: [facility] REPOSITORY [id number] Evans Forte 0 1970 M Date Provider Department Center 10/17/2024 Uriel-[facility]Y [facility] WOUND [facility] Family History Problem Relation Age of Onset Breast cancer Mother Comments: age 53, METS to brain Heart disease Father Heart attack Father Comments: age 26 No Known Problems Sister Comments: half-sister Breast cancer Maternal Grandmother Crohn's disease Daughter Comments: perforated bowel Cancer Father's Brother Comments: Unknown type and region Family Status - Relation Status Age at Mother Father Sister Maternal Grandmother Daughter Father's Brother Alive Level of Service:99345 [place] OFFICE/OUTPATIENT NEW MODERATE MDM 45 MINUTES PROGRESS Observed: 10/17/2024 1:45 PM Status: COMPLETED Source: [facility] REPOSITORY Patient was seen today in wo und clinic. Documentation is provided in [facility] EHR wound care documenting system. See Intellicure note for full details. Right heel DFU with significant callus to germán wound He has been going to podiatry for callus paring every other week for awhile now States he has had CTP applied previously by podiatry He does not have diabetic shoes now as he was told his foot wound needs to heal first History of orthopedic surgery on his right foot He has an unsteady gait Patient is ambulatory, has a weakness or deformity of the foot and ankle. Patient requires stabilization of the foot or ankle and has the potential to improve mobility and or functionally by using a boot. Precert for Foot Defender Debrided heel ulcer which he tolerated well Topical tx: vashe soak, mesalt, gauze, ABD, kerlix daily. Silvasorb to germán wound callus and callus to forefoot Palpable DP Instructed to eat a high protein diet and tightly control blood glucose to optimize wound healing. He likely can't get kidney transplant until his ulcer closes. RTC 1 week GDMT for PAD: asa, statin MADDI Right: Essentially normal PVR waveform contour at the thigh and below. Multiphasic with diastolic flow reversal PT and DP CW Doppler waveforms. No evidence of significant arterial occlusive disease with a normal ankle brachial index (1.0-1.29). DP MADDI is 1.10; PT MADDI is 1.25. Normal TBI (>0.75). TBI is 1.86. Left: Essentially normal PVR waveform contour at the thigh and below. Multiphasic with diastolic flow reversal PT and DP CW Doppler waveforms. MADDI demonstrates arterial calcification (>1.3). DP MADDI is 1.37; PT MADDI is 1.42. Normal TBI (>0.75). TBI is 1.10. Conclusions: No evidence of significant arterial occlusive disease bilaterally. HISTOPLASMA ANTIGEN, URINE Collected: 0 10/17/2024 11:14 AM Status: UNK Source: [facility] REPOSITORY TYPE CODE TESTS RESULT OUT OF RANGE REFERENCE UNITS LAB [id number] HISTOPLASMA ANTIGEN URINE QUANT Not Detected ng/mL LAB [id number] HISTOPLASMA ANTIGEN URINE INTERP Not Detected Not Detected Result Comment: INTERPRETIVE DATA: Histoplasma Galactomannan Antigen Quantitative by EIA, Urine Less than 0.4 ng/ml = Not Detected 0.4-0.7 ng/mL = Detected (below the limit of quantification) 0.8-24.0 ng/mL = Detected Greater than 24.0 ng/mL = Detected (above the limit of quantification) The quantitative range of this assay is 0.8-24.0 ng/mL. Antigen concentrations between 0.4-.07 or >24.0 ng/mL fall outside the linear range of the assay and cannot be accurately quantified. This EIA test should be used in conjunction with other diagnostic procedures, including microbiological culture, histological examination of biopsy samples, and/or radiographic evidence, to aid in the diagnosis of histoplasmosis. This test was developed and its performance characteristics determined by [facility]. It has not been cleared or approved by the U.S. Food and Drug Administration. This test was performed in a CLIA-certified laboratory and is intended for clinical purposes. Performed By: [facility] [address] [place] [id number] Employment Specialist/Program Manager: Aristeo Salgado MD, PhD CLIA Number: [id number] Performed By: #### [id number] ## ## [facility] ([facility]) [address] [place] [id number] CHLAMYDIA TRACHOMATIS AND NEISSERIA GONORRHEA, TMA Collected: 10/17/2024 11:14 AM Status: UNK Source: [facility] REPOSITORY TYPE CODE TESTS RESULT OUT OF RANGE REFERENCE UNITS LAB [id number] NEISSERIA GONORRHOEAE DNA PROBE (PRESENCE) IN UNSP SPEC Negative Negative Result Comment: No Neisseria gonorrhoeae rRNA Detected. The Aptima Combo 2 Assay is a FDA approved target amplification nucleic acid probe test that utilizes target capture for the in vitro qualitative detection and differentiation of ribosomal RNA (rRNA) from Chlamydia trachomatis (CT) and/or Neisseria gonorrhoeae (GC) to aid the diagnosis of chlamydial and/or gonococcal urogenital disease using the Perkins System. The Aptima Combo 2 Assay involves target capture, target amplification by Primary Montessori Teacher-Mediated Amplification (TMA), and the detection of the amplification products (amplicon) by the Hybridization Protection Assay (HPA). The internal process controls of the Perkins System monitor the target capture, amplification, and detection steps of the assay, this is not intended to control for sampling adequacy. LAB [id number] CHLAMYDIA TRACHOMATIS DNA PROBE (PRESENCE) IN UNSP SPEC Negative Negative Result Comment: No Chlamydia trachomatis rRNA Detected. The Aptima Combo 2 Assay is a FDA approved target amplification nucleic acid probe test that utilizes target capture for the in vitro qualitative detection and differentiation of ribosomal RNA (rRNA) from Chlamydia trachomatis (CT) and/or Neisseria gonorrhoeae (GC) to aid the diagnosis of chlamydial and/or gonococcal urogenital disease using the Perkins System. The Aptima Combo 2 Assay involves target capture, target amplification by Primary Montessori Teacher-Mediated Amplification (TMA), and the detection of the amplification products (amplicon) by the Hybridization Protection Assay (HPA). The internal process controls of the Perkins System monitor the target capture, amplification, and detection steps of the assay, this is not intended to control for sampling adequacy. Performed By: #### [id number] # ### [facility] ([facility]) [address] [place] [address] HIV COMBO 4G Collected: 11:14 AM Status: UNK Source: [facility] REPOSITORY TYPE CODE TESTS RESULT OUT OF RANGE REFERENCE UNITS LAB 1388 HIV COMBO 4G Negative Negative Performed By: #### [id number] # ### [facility] ([facility]) [address] [place] [address] BARTONELLA HENSELAE ANTIBODY PANEL Collected: 10/17/2024 11:14 AM Status: UNK Source: [facility] REPOSITORY TYPE CODE TESTS RESULT OUT OF RANGE REFERENCE UNITS LAB [id number] BARTONELLA HENSELAE IGG <1:64 Result Comment: INTERPRETIVE INFORMATION: Bartonella henselae Ab, IgG Less than 1:64 ....... Negative: No significant level of Bartonella henselae IgG antibody detected. 1:64 - 1:128 ......... Equivocal: Questionable presence of Bartonella henselae IgG antibody detected. Repeat testing in 10-14 days may be helpful. 1:256 or greater ..... Positive: Presence of IgG antibody to Bartonella henselae detected, suggestive of current or past infection. A low positive suggests past exposure or infection, while high positive results may indicate recent or current infection, but are inconclusive for diagnosis. Seroconversion between acute and convalescent sera is considered strong evidence of recent infection. The best evidence for infection is significant change on two appropriately timed specimens where both tests are done in the same laboratory at the same time. This test was developed and its performance characteristics determined by [facility]. It has not been cleared or approved by the US Food and Drug Administration. This test was performed in a CLIA certified laboratory and is intended for clinical purposes. LAB [id number] BARTONELLA HENSELAE IGM < 1:16 Result Comment: INTERPRETIVE INFORMATION: Bartonella henselae Antibody, IgM Less than 1:16 ...... Negative: No significant level of Bartonella henselae IgM antibody detected. 1:16 or greater ..... Positive: Presence of IgM antibody to Bartonella henselae detected, suggestive of current or recent infection. The presence of IgM antibodies suggest recent infection, low levels of IgM antibodies may occasionally persist for more than 12 months post infection. This test was developed and its performance characteristics determined by [facility]. It has not been cleared or approved by the US Food and Drug Administration. This test was performed in a CLIA certified laboratory and is intended for clinical purposes. Performed By: [facility] [address] [place] [address] Employment Specialist/Program Manager: Aristeo Salgado MD, PhD CLIA Number: [id number] Performed By: #### [id number] # ### [facility] ([facility] [address] [place] [address] RPR Collected: 11:14 AM Status: UNK Source: [facility] REPOSITORY TYPE CODE TESTS RESULT OUT OF RANGE REFERENCE UNITS LAB [id number] REAGIN AB PRESENCE IN SERUM BY RPR Nonreactive Nonreactive Performed By: #### [id number] ## ## [facility]) [address] [place] [address] PROGRESS Observed: 10/17/2024 10:30 AM Status: COMPLETED Source: [facility] REPOSITORY Subjective Patient ID: Evans Forte is a 54 y.o. 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 He underwent right inguinal LAP excision and bone marrow biopsy LN: negative for Treponema pallidum, and positive for reactive follicular hyperplasia, plasmacytosis and focally thickened capsule , bone marrow biopsy no evidence of malignancy He is referred to us to address the LN Patient denies any fever, chills, respiratory symptoms, no LAP any where else based on images Has two cats Does yard work No previous hx of cat scratch disease Past Medical History: Past Medical History: Diagnosis Date Adrenal nodule (CMS/HCC) left adrenal adenoma Anemia Anxiety Charcot foot due to diabetes mellitus (CMS/HCC) Right, s/p reconstructive surgery Chronic sinusitis COVID-19 08/2023 Diabetic foot ulcers (CMS/HCC) right Diabetic polyneuropathy (CMS/HCC) Diabetic retinopathy (CMS/HCC) ED (erectile dysfunction) ESRD (end stage renal disease) (CMS/HCC) 11/23/2022 GERD (gastroesophageal reflux disease) Glaucoma History of tobacco use Hyperlipidemia Hypertension Hypogonadism in male Hypothyroidism Insomnia Neuropathy Obesity Osteomyelitis of ankle or foot, left, acute (CMS/HCC) Pancreatitis x2 Past history of chewing tobacco use Peripheral artery disease (CMS/HCC) Proteinuria Sleep apnea Type 2 diabetes mellitus (CMS/HCC) Vitamin D deficiency Patient Active Problem List Diagnosis Adenoma of left adrenal gland History of pancreatitis Open wound of left foot Type 2 diabetes mellitus (CMS/HCC) Charcot's joint of foot Hypertension, essential Acquired hypothyroidism Hyperlipidemia Vitamin D deficiency Libido, decreased Erectile dysfunction Hypogonadism male Diabetic neuropathic arthropathy (CMS/HCC) Diabetic neuropathy (CMS/HCC) End stage renal disease (CMS/HCC) Glaucoma Hypoglycemia due to type 2 diabetes mellitus (CMS/HCC) Iron deficiency anemia 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, 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, 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 of 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 (CMS/HCC) Microalbuminuria Mild left ventricular systolic dysfunction Morbid obesity (CMS/HCC) Obstructive sleep apnea syndrome Osteomyelitis (CMS/HCC) Polyneuropathy due to type 2 diabetes mellitus (CMS/HCC) Ulcer of right foot with fat layer exposed (CMS/HCC) Pure hypercholesterolemia Disorder of adrenal gland (CMS/HCC) Type 2 diabetes mellitus with 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 edema, unspecified eye (CMS/HCC) Peripheral vascular disease (CMS/HCC) Adrenal nodule (CMS/HCC) Anxiety Insomnia Osteomyelitis of left foot (CMS/HCC) Diabetic retinopathy (CMS/HCC) Past history of chewing tobacco use Mild nonproliferative diabetic retinopathy associated with type 2 diabetes mellitus (CMS/HCC) Diabetic foot ulcers (CMS/HCC) Chronic sinusitis COVID-19 Anemia Pre-transplant evaluation for kidney transplant Cardiovascular stress test abnormal Current tobacco use Enlarged lymph node Past Surgical History: Past Surgical History: Procedure Laterality Date AV FISTULA PLACEMENT 09/2023 Left arm AV fistula CARDIAC CATHETERIZATION 07/15/2018 Normal coronary arteries. Normal left ventricular function. False positive stress perfusion exam. COLONOSCOPY 09/03/2022 3 polyps status post polypectomy ranging from 6mm to 1-1/2 cm. Poor prep COLONOSCOPY 06/18/2022 Poor prep COLONOSCOPY 02/22/2024 FOOT SURGERY Right 12/05/2018 multple INSERTION / REMOVAL / REPLACEMENT VENOUS ACCESS CATHETER 09/16/2023 Hemodialysis catheter PERITONEAL CATHETER INSERTION 11/06/2022 PERITONEAL CATHETER REMOVAL 10/13/2023 TOE AMPUTATION Left Left lesser toe WOUND DEBRIDEMENT Right 12/24/2023 WOUND DEBRIDEMENT WITH APPLICATION OF BILAYER SKIN GRAFT RIGHT WOUND DEBRIDEMENT Right 01/24/2024 Ulceration to the right heel and 1st MPJ WOUND DEBRIDEMENT Right 02/29/2024 Ulceration to the right heel and 1st MPJ WOUND DEBRIDEMENT Right 03/30/2024 Ulceration to the right heel and 1st MPJ WOUND DEBRIDEMENT Right 05/04/2024 Ulceration to the right heel and 1st MPJ WOUND DEBRIDEMENT Right 05/18/2024 Ulceration to the right heel and 1st MPJ WOUND DEBRIDEMENT Right 06/08/2024 plantar medial right heel Medications: Current Outpatient Medications on File Prior to Visit Medication Sig Dispense Refill anastrozole (Arimidex) 1 mg chemo tablet Take 1 tablet (1 mg total) by mouth in the morning Swallow whole with a drink of water. 90 tablet 3 aspirin 81 mg chewable tablet Chew 1 tablet (81 mg) in the morning. 90 tablet 3 atorvastatin (Lipitor) 20 mg tablet Take 20 mg by mouth in the morning. b complex 0.4 mg tablet Take 1 tablet by mouth in the morning and at bedtime. bumetanide (Bumex) 2 mg tablet Take 2 mg by mouth in the morning. calcitriol (Rocaltrol) 0.25 mcg capsule Take 0.25 mcg by mouth in the morning. calcium acetate (Phoslo) 667 mg capsule Take 667 mg by mouth in the morning. carvedilol (Coreg) 12.5 mg tablet Take 12.5 mg by mouth with breakfast and with evening meal. cholecalciferol (D3-5) 5,000 Units tablet Take 1 tablet by mouth in the morning. escitalopram (Lexapro) 10 mg tablet Take 10 mg by mouth in the morning. insulin glargine (Lantus) 100 unit/mL injection vial Inject 60 Units under the skin in the morning. insulin lispro (HUMALOG KWIKPEN INSULIN SUBQ) Inject 10 Units under the skin with breakfast, with lunch, and with evening meal. levothyroxine (Synthroid, Levoxyl) 100 mcg tablet Take 100 mcg by mouth before breakfast. midodrine (Proamatine) 10 mg tablet TAKE 1 TABLET BY MOUTH NEEDED DURING DIALYSIS FOR BLOOD PRESSURE SUPPORT pregabalin (Lyrica) 150 mg capsule Take 150 mg by mouth two times daily. tenapanor (Xphozah) 30 mg tablet Take 30 mg by mouth two times daily. furosemide (Lasix) 80 mg tablet Take 80 mg by mouth two times daily. testosterone 1.62 % (20.25 mg/1.25 gram) gel in packet APPLY 1 PACKET DIRECTED ONCE DAILY (Patient taking differently: Apply 1 Application topically in the morning.) 37.5 g 0 No current facility-administered medications on file prior to visit. Social History: Social History Socioeconomic History Marital status: Spouse name: None Number of children: None Years of education: None Highest education level: None Occupational History None Tobacco Use Smoking status: Never Smokeless tobacco: Current Types: Chew Last attempt to quit: 07/2022 Tobacco comments: Check status Vaping Use Vaping status: Never Used Substance and Sexual Activity Alcohol use: Not Currently Comment: Previous occasional use - rare / once per year Drug use: Not Currently Sexual activity: Defer Partners: Female Other Topics Concern None Social History Narrative None Social Determinants of Health Financial Resource Strain: Low Risk (09/12/2024) Overall Financial Resource Strain (CARDIA) Difficulty of Paying Living Expenses: Not hard at all Food Insecurity: No Food Insecurity (09/12/2024) Hunger Vital Sign Worried About Running Out of Food in the Last Year: Never true Ran Out of Food in the Last Year: Not on file Transportation Needs: No Transportation Needs (09/12/2024) Transportation Lack of Transportation (Medical): No Lack of Transportation (Non-Medical): Not on file Physical Activity: Not on file Stress: Not on file Social Connections: Not on file Intimate Partner Violence: Not At Risk (09/12/2024) Humiliation, Afraid, Rape, and Kick questionnaire Fear of Current or Ex-Partner: No Emotionally Abused: No Physically Abused: No Sexually Abused: No Housing Stability: Low Risk (09/12/2024) Housing Stability Vital Sign Unable to Pay for Housing in the Last Year: No Number of Times Moved in the Last Year: Not on file Homeless in the Last Year: No Family History: Family History Problem Relation Name Age of Onset Breast cancer Mother age 53, METS to brain Heart disease Father Evans gifford Heart attack Father Evans gifford age 26 No Known Problems Sister half-sister Breast cancer Maternal Grandmother Crohn's disease Daughter perforated bowel Cancer Father's Brother Unknown type and region Allergies: Allergies Allergen Reactions Adhesive Tape-Silicones Rash Latex Rash If on for long periods of time Vancomycin Hives Other reaction(s): Unknown Adhesive Rash Haloperidol Anxiety Kintyre Oil GI intolerance Runny nose, watery eyes Review of Systems Negative except what's mentioned in HPI Objective BP 105/69 Pulse 66 Temp 36.7 ???C (98 ???F) (Oral) Wt (!) 147 kg (324 lb) SpO2 97% BMI 41.60 kg/m??? Physical Exam General: alert, not in distress HEENT supple Chest: clear, unlabored breathing CVS normal s1 s2 no murmurs Abdomen: soft lax Ext: right foot two ulcers with hyperkeratosis, right leg swelling and post cellulitic changes, no palpable inguinal LN on exam Neurology: oriented x3, non focal Labs: Labs reviewed as below Assessment/Plan Problem List Items Addressed This Visit Musculoskeletal Diabetic foot ulcers (CMS/HCC) Other Visit Diagnoses Lymphadenopathy - Primary Relevant Orders Bartonella henselae antibody panel Nonspecific urethritis This lymph node could be reactive due to ongoing DFU involving the same side, other DDX: histo, blasto, cat scratch disease, Will send histo, crypto and blasto antigen Check RPR- negative, HIV negative, CG negative I have to wound/vascular clinic and they have scheduled the patient to be seen Will need repeat images to assess resolution of the LN and complete healing of the ulcers (better repeat images once wound healed or sooner if clinically indicated ) RTC in a month Leslie Morel MD Infectious diseases OFFICE VISIT Observed: 10/17/2024 10:30 AM Status: COMPLETED Source: [facility] REPOSITORY [id number] Evans Forte 0 1970 M Date Provider Department Center 10/17/2024 628-LESLIE MOREL [facility] INF [facility] Family History Problem Relation Age of Onset Breast cancer Mother Comments: age 53, METS to brain Heart disease Father Heart attack Father Comments: age 26 No Known Problems Sister Comments: half-sister Breast cancer Maternal Grandmother Crohn's disease Daughter Comments: perforated bowel Cancer Father's Brother Comments: Unknown type and region Family Status - Relation Status Age at Mother Father Sister Maternal Grandmother Daughter Father's Brother Alive Level of Service:86361 [place] OFFICE/OUTPATIENT ESTABLISHED LOW MDM 20 MIN ORDERS ONLY Observed: 10/17/2024 12:00 AM Status: COMPLETED Source: [facility] REPOSITORY [id number] Evans Forte 0 1970 M Date Provider Department Center 10/17/2024 MARIE LOZA [facility] DERM [facility] Family History Problem Relation Age of Onset Breast cancer Mother Comments: age 53, METS to brain Heart disease Father Heart attack Father Comments: age 26 No Known Problems Sister Comments: half-sister Breast cancer Maternal Grandmother Crohn's disease Daughter Comments: perforated bowel Cancer Father's Brother Comments: Unknown type and region Family Status - Relation Status Age at Mother Father Sister Maternal Grandmother Daughter Father's Brother Alive PROGRESS Observed: 10/02/2024 8:55 AM Status: COMPLETED Source: [facility] REPOSITORY Dr. Catia dunham [facility] PROVIDER ORDERS Observed: 09/25/2024 9:38 AM Status: F Source: [facility] REPOSITORY [id number] PROGRESS Observed: 09/14/2024 4:23 PM Status: COMPLETED Source: [facility] REPOSITORY TC returned message to ken moreno regarding work up status. Patient states has completed lymph node biopsy and bone biopsy and both came back negative. Patient recommended to follow up with infectious disease regarding lymph nodes. Patient continues to work on nicotine cessation, dental and podiatry. Patient will update TC after appointment with infectious disease. Melinda Hidalgo RN ORDERS ONLY Observed: 09/14/2024 12:00 AM Status: COMPLETED Source: [facility] REPOSITORY [id number] Evans Forte 0 1970 M Date Provider Department Center 09/14/2024 LESLIE GUZMÁN [facility] INF [facility] Family History Problem Relation Age of Onset Breast cancer Mother Comments: age 53, METS to brain Heart disease Father Heart attack Father Comments: age 26 No Known Problems Sister Comments: half-sister Breast cancer Maternal Grandmother Crohn's disease Daughter Comments: perforated bowel Cancer Father's Brother Comments: Unknown type and region Family Status - Relation Status Age at Mother Father Sister Maternal Grandmother Daughter Father's Brother Alive PROGRESS Observed: 09/12/2024 9:30 AM Status: COMPLETED Source: [facility] REPOSITORY Attestation signed by Sivan Duarte MD at 09/15/2024 3:27 PM By using the attestations below, the signing clinician agrees that I have read and verify that the documentation has been personally reviewed by me and ensure that the documentation accurately reflects the encounter. As noted by Dr Michael VEGA: I personally saw this patient on the day of the encounter, performed the ceja portion(s) of the service and participated in the management and confirm the resident's documentation. Please note there may be an additional personal documentation from me. Additional Comments: 1. Lymphadenopathy - Ambulatory referral to Infectious Disease; Future - Ambulatory referral to Vascular Surgery; Future With biopsies negative both lymph node and bone marrow , he will follow with IUD and reimaging . Took liberty to refer to vascular for her stasis Thanks Sivan Duarte MD HEMATOLOGY and MEDICAL ONCOLOGY Dr. Jasmin Junior MD / MD Treasure Jimenes, PAOLA / Desire Bueno CNP / Yokasta Hughes RN URGENT CARE-FLOOR CARE TECHNICIAN Patient Name: Evans Forte Date of : 1970 Encounter Date: 09/14/2024 Patient Care Team: Idania Gaston DO as PCP - General Nery Clay MD as Consulting Physician (Transplant Surgery) Adams Tate NP as Nurse Practitioner (Urology) Delano Bardales MD as Consulting Physician (Urology) Sivan Duarte MD as Consulting Physician (Hematology and Oncology) IMPRESSION and ASSESSMENT: Evans Forte is a 54 y.o. male with: Cancer Staging No matching staging information was found for the patient. Diagnoses and all orders for this visit: Lymphadenopathy - Ambulatory referral to Infectious Disease; Future - Ambulatory referral to Vascular Surgery; Future Problem List Items Addressed This Visit None Visit Diagnoses Lymphadenopathy - Primary Relevant Orders Ambulatory referral to Infectious Disease Ambulatory referral to Vascular Surgery RECOMMENDATIONS and PLAN: The differential of reactive follicular hyperplasia is broad which includes bacterial, fungal and viral infections including bartonella, staphylococcal, granulomatous, adenoviral and Lyme disease are all associated with follicular hyperplasia. Other autoimmune related diseases that are associated are rheumatoid arthritis, systemic lupus, dermatomyositis and Sj???gren syndrome. Will recommend ID follow up Bone marrow aspirate doesnot show evidence of overt dysplasia or neoplasm. The hypercellular bone marrow can be secondary to infections and blood loss Follow up with PCP for the concern of right leg cellulitis SUBJECTIVE: Interval History: 09/14/2024 Evans Forte came for follow up He was initially seen in the oncology clinic as during the prerenal transplant evaluation as he had right iliac and right inguinal lymphadenopathy that was PET avid and suspicious for active neoplasm. The CT guided biopsy of the right groin lymph node showed reactive follicular hyperplasia and focally thickened capsule. The bone marrow biopsy shows hypercellular bone marrow for age with maturing trilineage hematopoiesis. No evidence of overt dysplasia or neoplasm He is feeling well today. His lower extremity has chronic venous stasis changes, there is redness and warmth noted on the right leg which can be concerning of cellulitis. Oncology History No history exists. [No matching plan found] Other History: - Relevant medical/surgical/family/social histories, medications, problem list and allergies were reviewed and updated as needed today. Review of Systems - Oncology OBJECTIVE: BP 137/79 Pulse 78 Resp 16 Ht 1.88 m (6' 2 ) Wt (!) 147 kg (324 lb) SpO2 96% BMI 41.60 kg/m??? ECOG Performance Status: 0 - Asymptomatic Physical Examination: General: Well-appearing, in no acute distress, sitting comfortably in chair. Head: Normocephalic, atraumatic. Neck: No appreciable JVP elevation. HEENT: No scleral icterus. Oral mucosa is moist without erythema, lesions, or ulcerations. Lymph: No palpable pericervical, anterior cervical, lateral cervical, or axillary lymphadenopathy bilaterally. Pulm: No audible wheezing, rales, or rhonchi. Breathing is non-labored. GI: Abdomen is soft, non-distended, non-tender. No hepatosplenomegaly. MSK: Chronic venous stasis changes with redness and warmth of the right leg Ext: No peripheral edema, no erythema. Skin: No jaundice. No obvious rash or suspicious lesions. Neuro: Alert and oriented x 3. Psych: Normal mood, normal affect. Diagnostic Results Recent Laboratory Results: Lab Results Component Value Date WBC 9.66 08/22/2024 RBC 3.91 (L) 08/22/2024 HGB 12.1 (L) 08/22/2024 HCT 36.9 (L) 08/22/2024 MCV 94.4 08/22/2024 MCH 30.9 08/22/2024 MCHC 32.8 08/22/2024 PLT 227 08/22/2024 RDW 14.5 08/22/2024 NEUTROPCT 62.5 04/07/2022 MONOPCT 6.7 08/22/2024 EOSPCT 5.5 08/22/2024 BASOPCT 0.6 08/22/2024 NEUTROABS 6.60 08/22/2024 MONOSABS 0.65 08/22/2024 EOSABS 0.53 (H) 08/22/2024 Lab Results Component Value Date GLUCOSE 216 (H) 07/11/2024 BUN 53 (H) 07/11/2024 CREATININE 7.27 (H) 07/11/2024 NA 139 07/11/2024 K 4.1 07/11/2024 CL 98 07/11/2024 CALCIUM 9.4 07/11/2024 PROT 7.6 07/11/2024 AST 8 (L) 07/11/2024 ALT 12 07/11/2024 ALKPHOS 115 (H) 07/11/2024 BILITOT 0.5 07/11/2024 CO2 31 07/11/2024 CO2 24 04/07/2022 ANIONGAP 14 07/11/2024 Speech recognition software was used in the preparation of this note, errors in cloth burler may be present. Please call if there are questions. OFFICE VISIT Observed: 09/05/2024 2:30 PM Status: COMPLETED Source: [facility] REPOSITORY [id number] Evans Forte 0 1970 M Date Provider Department Center 09/05/2024 Kannan-ERICK CARTER [facility]G [place] Family History Problem Relation Age of Onset Breast cancer Mother Comments: age 53, METS to brain Heart disease Father Heart attack Father Comments: age 26 No Known Problems Sister Comments: half-sister Breast cancer Maternal Grandmother Crohn's disease Daughter Comments: perforated bowel Cancer Father's Brother Comments: Unknown type and region Family Status - Relation Status Age at Mother Father Sister Maternal Grandmother Daughter Father's Brother Alive Level of Service:43521 UT OFFICE/OUTPATIENT ESTABLISHED MDM 10 MIN Reason for Visit and Comments: Post-op [483] - Evans is here today for post op visit: enlarged lymph node, s/p 08/22/24 excisional lymph node biopsy PROGRESS Observed: 09/05/2024 2:30 PM Status: COMPLETED Source: [facility] REPOSITORY Subjective Patient ID: Evans Forte is a 54 y.o. male who presents for Post-op (Evans is here today for post op visit: enlarged lymph node, s/p 08/22/24 excisional lymph node biopsy). HPI He is visiting for wound check and follow-up with the pathology results. Review of Systems Constitutional: Negative. HENT: Negative. Respiratory: Negative. Cardiovascular: Negative. Gastrointestinal: Negative. Genitourinary: Negative. Musculoskeletal: Negative. Neurological: Negative. Hematological: Negative. Objective Visit Vitals BP 153/80 Pulse 76 Temp 36.6 ???C (97.9 ???F) Physical Exam Constitutional: Appearance: He is obese. HENT: Head: Atraumatic. Cardiovascular: Rate and Rhythm: Normal rate. Pulmonary: Effort: Pulmonary effort is normal. Abdominal: General: Abdomen is flat. Palpations: Abdomen is soft. Comments: Right groin incision is dry, clean, intact. Musculoskeletal: Cervical back: Neck supple. Neurological: Mental Status: He is alert. Final Diagnosis A-B. Lymph node, right groin, excision: - Lymph node with reactive follicular hyperplasia, plasmacytosis and focally thickened capsule. - No evidence of malignancy. - See comment. at 1418 Comment The morphologic features of the lymph node are favored to represent a reactive etiology; there is no evidence of malignancy in the lymph node submitted. A Treponema pallidum stain is pending; results will be reported in an addendum. Flow Cytometry Summary Flow cytometry studies were completed at [facility]: Leukemia/lymphoma phenotyping evaluation by flow cytometry: - No abnormal myeloid, B-cell, T-cell, NK-cell or plasma cell population is identified. Assessment/Plan Right groin lymphadenopathy Right lower extremity edema Apply right lower extremity compression stocking Follow-up with hematology. No diagnosis found. No orders of the defined types were placed in this encounter. No results found for this or any previous visit (from the past 36 hour(s)). No follow-ups on file. US VENOUS DUPLEX LE RT Observed: 024 10:45 AM Status: COMPLETED Source: [facility] REPOSITORY [facility] [place] [address] Ultrasound Report Signed Patient: Evans Forte MR#: [id number] : 1970 Acct:[id number] Age/Sex: 54 / M ADM Date: 08/28/24 Loc: ER Room: Type: [facility] ER Attending Dr: Ordering Provider: Delano Mondragon MD Date of Service: 08/28/24 US/US venous duplex LE RT: kjb Copies to: Delano Mondragon MD RIGHT LOWER EXTREMITY VENOUS DUPLEX INDICATION: Swollen painful right leg Unilateral right lower extremity venous duplex Doppler study was obtained utilizing B-mode, color- flow and spectral Doppler. FINDINGS: The right common femoral, femoral, and popliteal veins showed adequate compressibility, color-flow and augmentation. The right posterior tibial veins were compressible, as well as proximal greater saphenous vein. The peroneal veins are not well visualized. The contralateral left common femoral vein was compressible with color-flow and augmentation. US/US venous duplex LE RT IMPRESSION: NO EVIDENCE OF DEEP VENOUS THROMBOSIS IN THE RIGHT LOWER EXTREMITY. NO SUPERFICIAL THROMBOPHLEBITIS WAS NOTED. Impression dictated by: Ramirez Jean M.D.08/29/2024 10:46 AM Dictation Location: [place] [address] Tech: Idania Waite Transcribed By: CATHLEEN 08/29/24 1046 Dictated By: Ramirez Jean MD 08/29/24 1045 Signed By: <Electronically signed by MD Ramirez Jean in OV> 08/29/24 1046 COMPLETE BLOOD COUNT AUTO DIFF Collected: 08/29/2024 12:03 AM Status: F Source: [facility] REPOSITORY TYPE CODE TESTS RESULT OUT OF RANGE REFERENCE UNITS LAB WBC White Blood Count 9.9 Normal 4.1-10.5 10*3/uL LAB UNWBC Uncorrected WBC 9.9 Normal 4.1-10.5 10*3/uL LAB RBC Red Blood Count 3.85 Low 3.90-5.60 10*6/u L LAB HGB Hemoglobin 12.0 Low 13.0-17.0 g/dL LAB HCT Hematocrit 36.0 Low 38.8-50.0 % LAB MCV Mean Corpuscular Volume 93.5 Normal 83.5-101 fL LAB MCH Mean Corpuscular Hemoglobin 31.3 Normal 27.5-35.2 pg LAB MCHC Mean Corpuscular HGB Conc 33.5 Normal 32.5-35.6 g/dL LAB RDW Red Cell Distribution Width 15.2 High 12.0-14.8 % LAB PLT Platelet Count 289 Normal 150-450 10*3/uL LAB MPV Mean Platelet Volume 7.0 Normal 6.6-10.1 fL LAB MDW Monocyte Distribution Width 15.54 Normal 0.00-20.00 % LAB NE% Neutrophils % (Auto) 60.1 . % LAB LY% Lymphocytes % (Auto) 26.1 . % LAB MO% Monocytes % (Auto) 8.3 . % LAB EO% Eosinophils % (Auto) 5.2 . % LAB BA% Basophils % (Auto) 0.3 . % LAB NRBC% NRBC% 0.0 Normal 0-0.5 /100{WBC } LAB NE# Neutrophils # (Auto) 5.9 Normal 1.8-7.7 10*3/uL LAB LY# Lymphocytes # (Auto) 2.6 Normal 1.00-4.8 10*3/uL LAB MO# Monocytes # (Auto) 0.8 Normal 0.0-0.8 10*3/uL LAB EO# Eosinophils # (Auto) 0.5 High 0.0-0.45 10*3/uL LAB BA# Basophils # (Auto) 0.0 Normal 0.0-0.2 10*3/uL Result Comment: PERFORMED BY : [facility] [address] [place] [address] PATHOLOGIST BELL PERSON KIM ELLIOTT M.D. Performed By: #### CBC, PT, BMP, PTT #### [facility] [address] BASIC METABOLIC PANEL Collected: 2023 12:03 AM Status: F Source: [facility] REPOSITORY TYPE CODE TESTS RESULT OUT OF RANGE REFERENCE UNITS LAB GLU Glucose 135 High 70-100 mg/dL Result Comment: Random Gluco se Reference Range is dependent on time and content of last meal. Glucose of more than 200 mg/dL in a nonstressed, ambulatory subject supports the diagnosis of Diabetes Mellitus. ADA recommended reference range LAB BUN Blood Urea Nitrogen 54 High 7-25 mg/dL LAB CREATT Creatinine 5.94 High 0.70-1.30 mg/dL LAB GFReNR Estimated GFR 10.609 mL/Min LAB NA Sodium 140 Normal 136-145 mmol/L LAB K Potassium 4.3 Normal 3.5-5.1 mmol/L LAB CL Chloride 98 Normal 98-107 mmol/L LAB CO2 Carbon Dioxide 26.6 Normal 21.0-31.0 mmol/L LAB GAP Anion Gap 19.7 High 6.0-15.0 meq/L LAB CA Calcium 9.6 Normal 8.6-10.3 mg/dL LAB CRCLPHA Creatinine Clr Calc Pharmacy 21.80 Result Comment: PERFORMED BY : [place] [address] PATHOLOGIST BELL PERSON KIM ELLIOTT M.D. Performed By: #### CBC, PT, BMP, PTT #### [place] [id number] [facility] PROTHROMBIN TIME INR Collected: 12:03 AM Status: F Source: [facility] REPOSITORY TYPE CODE TESTS RESULT OUT OF RANGE REFERENCE UNITS LAB R PT Prothrombin Time 12.0 Normal 9.0-12.9 s Result Comment: A hematocrit value greater than 55% may lead to inaccurate results in coagulation testing. Patients having hematocrit values >55% require a special collection tube for coagulation studies. Please contact the laboratory at [phone] for redraw instructions. LAB INR INR 1.0 Result Comment: INR Therapeu tic Range A) Pre- and Peroperative OAT started two weeks before surgery. NOT HIP SURGERY: 1.5 - 2.5 HIP SURGERY: 2 - 3 B) Primary and secondary prevention of venous THROMBOSIS: 2 - 3 C) Active venous thrombosis, pulmonary embolism and prevention of recurrent venous thrombosis: 2 - 3 D) Prevention of arterial thromboembolism including patients with mechanical heart valves: 3 - 4.5 Performed By: #### CBC, PT, BMP, PTT #### [address] [address] [facility] PARTIAL THROMBOPLASTIN TIME Collected: 08/29/2024 12: 03 AM Status: F Source: [facility] REPOSITORY TYPE CODE TESTS RESULT OUT OF RANGE REFERENCE UNITS LAB PTT Partial Thromboplastin Time 36.5 Normal 25.1-36.5 s Result Comment: A hematocrit value greater than 55% may lead to inaccurate results in coagulation testing. Patients having hematocrit values >55% require a special collection tube for coagulation studies. Please contact the laboratory at [phone] for redraw instructions. PERFORMED BY: [place] [address] PATHOLOGIST BELL PERSON KIM ELLIOTT M.D. Performed By: #### CBC, PT, BMP, PTT #### [facility] [address] [place] [id number] [facility] POCT GLUCOSE METER UNSOLICIT ED RESULTS Collected: 08/22/2024 5:58 PM Status: UNK Source: [facility] REPOSITORY Order Comment: Waived Testin g in the ED is performed under the ED CLIA certificate #[id number]. TYPE CODE TESTS RESULT OUT OF RANGE REFERENCE UNITS LAB 885 POCT GLUCOSE 97 70-105 mg/dL Result Comment: skirby Performed By: #### [id number] #### [facility] [address] [place] [address] ANES Observed: 08/22/2024 5:57 PM Status: COMPLETED Source: [facility] REPOSITORY Patient: Evans Forte Procedure Summary Date: 08/22/24 Room / Location: [facility] OPERATING ROOM 05 / [facility] Operating Room Anesthesia Start: 1554 Anesthesia Stop: 1729 Procedure: EXCISIONAL RIGHT GROIN LYMPH NODE BIOPSY (Right: Groin) Diagnosis: Enlarged lymph node Inguinal lymphadenopathy (Enlarged lymph node [R59.9]) Surgeons: Erick Carter MD Responsible Provider: Evans Rodriguez MD Anesthesia Type: MAC ASA Status: 3 Anesthesia Type: MAC Vitals Value Taken Time BP 153/71 08/22/24 1741 Temp 36.2 ???C (97.2 ???F) 08/22/24 1726 Pulse 76 08/22/24 1741 Resp 18 08/22/24 1741 SpO2 99 % 08/22/24 1741 Anesthesia Post Evaluation Patient location during evaluation: PACU Patient participation: complete - patient participated Level of consciousness: awake and alert Pain score: 0 Pain management: adequate Multimodal analgesia pain management approach Airway patency: patent Two or more strategies used to mitigate risk of obstructive sleep apnea Cardiovascular status: acceptable Respiratory status: acceptable, room air and nonlabored ventilation Hydration status: euvolemic Patient is hemodynamically stable and is able to be discharged from PACU per anesthesia protocol. No notable events documented. HISTOLOGY - TISSUE EXAM Collected: 08/06 4:56 PM Status: UNK Source: [facility] REPOSITORY Order Comment: Pre-op diagno sis: Enlarged lymph node [R59.9] TYPE CODE TESTS RESULT OUT OF RANGE REFERENCE UNITS PATHOLOGY 1499 LAB AP CASE REPORT Result Comment: Surgical Pat hology Case: [id number] Authorizing Provider: Erick Carter MD Collected: 08/22/2024 1656 Ordering Location: [facility] Main Operating Room Received: 08/24/2024 0812 Pathologist: Jade Esquivel MD Specimens: A) - Lymph Node, right groin, frozen section B) - Lymph Node, Right groim, for permanent PATHOLOGY 34 LAB AP REPORT FINAL DIAGNOSIS NARRATIVE Result Comment: A-B. Lymph n ode, right groin, excision: - Lymph node with reactive follicular hyperplasia, plasmacytosis and focally thickened capsule. - No evidence of malignancy. - See comment. OLOGY 29 LAB AP CLINICAL INFORMATION Result Comment: Post-Op Diag noses R59.9 - Enlarged lymph node [ICD-10-CM] R59.0 - Inguinal lymphadenopathy [ICD-10-CM] PATHOLOGY 35 LAB AP DIAGNOSIS COMMENT The morphologic features of the lymph node are favored to represent a reactive etiology; there is no evidence of malignancy in the lymph node submitted. A Treponema pallidum stain is pending; results will be reported in an addendum. PATHOLOGY [id number] LAB AP GROSS DESCRIPTION A. Lymph Node. Result Comment: Received anum sh labeled Evans Wileywalski, Lymph node are two soft tissue fragments, 1 x 0.5 x 0.3 cm and 2 x 1 x 0.5 cm. The fragments are burns- white and burns-pink, respectively. Each fragment is sectioned to reveal pale granular cut surfaces. Two air-dried touch prep slides are prepared from the smaller fragment and a third is prepared from the larger fragment for Kwik-Dif stain. A portion of tissue is placed in RPMI media and sent for flow cytometric studies. The remainder of the specimen is entirely submitted in 4 cassettes. Pamela Estrella' AssistantB. Lymph Node. Received in formalin labeled Evans Ac Jann, Right groin is a burns rubbery lobulated bulky portion of partially shaggy tissue, 2.8 x 2 x 1.7 cm. The specimen is serially sectioned to reveal burns finely granular uniform cut surfaces and is entirely submitted in 6 cassettes. Lisette Mary Anne, Pathologists' Pediatric Social Worker PATHOLOGY 32 LAB AP MICROSCOPIC DESCRIPTION Microscopic examination performed. PATHOLOGY 55 LAB AP FLOW CYTOMETRY SUMMARY Result Comment: Flow cytomet ry studies were completed at [facility] Laboratories: Leukemia/lymphoma phenotyping evaluation by flow cytometry: - No abnormal myeloid, B-cell, T-cell, NK-cell or plasma cell population is identified. PATHOLOGY 769 LAB AP ASR DISCLAIMER The interpretation of this case included the use of immunohistochemistry or special stains. These tests have not been cleared or approved by the U.S. Food and Drug Administration. The FDA has determined that such clearance or approval is not necessary. These tests are used for clinical purposes and should not be regarded as investigational or for research. This laboratory is certified to perform high complexity testing under the Clinical Laboratory Improvement Amendments of 1998. PATHOLOGY 37 LAB AP ADDENDUM 1 Result Comment: Stain for Tr eponema pallidum is negative. Addendum electronically signed by Jade Esquivel MD on 09/13/2024 at 10:58 AM Performed By: #### [id number] # ### [facility] [address] [place] [address] OPNOTE Observed: 08/22/2024 3:56 PM Status: COMPLETED Source: [facility] REPOSITORY EXCISIONAL RIGHT GROIN LYMPH NODE BIOPSY (R) Operative Note Date: 08/22/2024 Location: [facility] OR Name: Evans Forte, : 1970, Diagnosis Pre-op Diagnosis * Enlarged lymph node [R59.9] Post-op Diagnosis * Enlarged lymph node [R59.9] * Inguinal lymphadenopathy [R59.0] Procedures * EXCISIONAL RIGHT GROIN LYMPH NODE BIOPSY Surgeons Primary: Erick Carter MD Procedure Summary Anesthesia: Monitor Anesthesia Care ASA: III Estimated Blood Loss: 50 mL Total IV Fluids: 500 mL Drains: * None in log * Specimens ID Source Type Tests Collected By Collected At [facility]? Priority Lab ID 1 Lymph Node Tissue LEUKEMIA, LYMPHOMA IMMUNOPHENOTYPING, FLOW CYTOMETRY Erick Carter MD 08/22/241655 Routine [id number] Description: right groin flow cytometry A Lymph Node Tissue HISTOLOGY - TISSUE EXAM Erick Carter MD 08/22/241655 Routine Description: right groin permanent Staff: Clinical Cytogeneticist Scientist: Aristeo Lisa RN Scrub Person: Waldemar Kelsey RN Indications: Evans Forte is an 54 y.o. male who is having surgery for Enlarged lymph node [R59.9]. Right groin lymph node excisional biopsy was offered to the patient, informed consent was obtained. Procedure Details: The patient was seen in the preoperative area. The risks, benefits, complications, treatment options, non-operative alternatives, expected recovery and outcomes were discussed with the patient. The possibilities of reaction to medication, pulmonary aspiration, injury to surrounding structures, bleeding, recurrent infection, the need for additional procedures, failure to diagnose a condition, and creating a complication requiring transfusion or operation were discussed with the patient. The patient concurred with the proposed plan, giving informed consent. The site of surgery was properly noted/marked if necessary per policy. The patient has been actively warmed in preoperative area. Preoperative antibiotics have been ordered and given within 1 hours of incision. Venous thrombosis prophylaxis have been ordered including bilateral sequential compression devices Patient was brought to the operating room , laid on operating table in supine position. Monitored anesthesia care was initiated. Patient's lower abdomen and inguinal skin was prespped and draped in usual sterile fashion. Timeout was completed. A right inguinal incision was made with # 15 scalpel, 6 cm long. Electrocautery dissection to divide subcutaneous tissue. A 4 cm in diameter right inguinal lymph nodes was exposed. All the ductal structure was ligated with 2-0 Vicryl tie and divided. The lymph node was removed. The lymph nodes was cut in half, one half was sent in formalin, another half was sent in fresh for lymph node protocol. Hemostasis was obtained by electrocautery. The wound was irrigated with copious normal saline. The incision was closed by 3-0 Vicryl interrupted deep dermal suture and a 4-0 Vicryl running subcuticular suture. Dermabond was applied. Operation was completed without complication, I was present the entire surgery, minimal blood loss, the specimen was sent as stated above. At end of surgery the instrument count and sponge count were correct. Observed: 08/22/2024 3:33 PM Status: COMPLETED Source: [facility] REPOSITORY Patient: Evans Forte Procedure Information Date/Time: 08/22/24 1545 Procedure: EXCISIONAL RIGHT GROIN LYMPH NODE BIOPSY (Right: Groin) - PATIENT HAS APPT IN THE HOSP AT 11, CASE WILL FOLLOW HIS OTHER APPT AND [facility], MAKE SURE TO GETN CONSENT PRIOR PER CT Location: [facility] OPERATING ROOM 05 / [facility] Operating Room Surgeons: Erick Carter MD Relevant Problems Anesthesia (+) Obstructive sleep apnea syndrome Cardio (+) Hypertension, essential Endo (+) Acquired hypothyroidism (+) Type 2 diabetes mellitus (CMS/HCC) Other (+) Charcot's joint of foot (+) Osteomyelitis (CMS/HCC) (+) Osteomyelitis of left foot (CMS/HCC) - obesity DM significant insulin resistance, 135 units insulin per day - Does not use CPAP - Took antihypertensives this AM - Denies cardiac/pulmonary issue - ESRD on MWF dialysis, had dialysis yesterday Coronary Cath 07/27/2024 Hemodynamic Data: RA: 12 RV: 37/8, 13 PA: 39/21 (28) PCWP: 17 CO: 5.82 CI: 2.21 O2 Sat: PA sat: 60%, AO sat: 95% AO: 121/65 (85) TP PVR: 1.9 Wood units SVR: 1003 Metric units Coronary angiography: This is a co-dominant circulation. Left Main: This arises from the left coronary cusp. It bifurcates into left anterior descending and circumflex vessels. This is angiographically normal. Left anterior descending: This is angiographically normal. Circumflex: This is a co-dominant vessel. This is angiographically normal. Right coronary artery: This arises from the right coronary cusp. It is a co-dominant vessel. This has mild disease in the mid segment but no obstructive lesions. Clinical information reviewed: TTE 06/13/2024 Left Ventricle: The left ventricle is normal size. Global left ventricular systolic function is normal. The calculated Biplane EF is 65 %. Left ventricular wall thickness is increased. No regional wall motion abnormality. Unable to assess diastolic dysfunction. Concentric cardiac remodeling. Right Ventricle: The right ventricle appears normal in size. Right ventricular systolic function appears normal. Unable to assess right sided pressures due to lack of measurable tricuspid regurgitation. Left Atrium: The left atrium is normal in size. Overall Conclusions: Due to suboptimal imaging Lumason contrast was administered for opacification and better delineation of endocardial borders. No significant valvular abnormalities Stress Test 06/14/2023 Negative perfusion stress test for ischemia, Normal myocardial perfusion with soft tissue artifact, Normal global left ventricular function with EF 56%, No transient ischemia dilatation and Negative Lexiscan ECG stress test for ischemia Tobacco Allergies Meds Med Hx Surg Hx Fam Hx Soc Hx Physical Exam Airway Mallampati: III TM distance: >3 FB Neck ROM: full Cardiovascular - normal exam Dental - normal exam Pulmonary - normal exam Abdominal Other findings: GUSTAVO mild per pt Anesthesia Plan ASA 3 MAC (Discussed potential to convert to GETA if unable to tolerate MAC) The patient is not a current smoker. Patient did not smoke on day of procedure. intravenous induction Anesthetic plan and risks discussed with patient. Use of blood products discussed with patient who consented to blood products. Plan discussed with attending and resident. Additional Equipment Requests Prior to Admission medications Medication Sig Start Date End Date Taking? Authorizing Provider anastrozole (Arimidex) 1 mg chemo tablet Take 1 tablet (1 mg total) by mouth in the morning Swallow whole with a drink of water. 01/10/24 01/09/25 Yes Adams Tate NP aspirin 81 mg chewable tablet Chew 1 tablet (81 mg) in the morning. 06/22/24 06/22/25 Yes Mali Alvarez MD atorvastatin (Lipitor) 20 mg tablet Take 20 mg by mouth in the morning. Yes Historical Provider, b complex 0.4 mg tablet Take 1 tablet by mouth in the morning and at bedtime. Yes Historical Provider, calcitriol (Rocaltrol) 0.25 mcg capsule Take 0.25 mcg by mouth in the morning. 02/12/23 Yes Historical Provider, calcium acetate (Phoslo) 667 mg capsule Take 667 mg by mouth in the morning. 02/10/23 Yes Historical Provider, carvedilol (Coreg) 12.5 mg tablet Take 12.5 mg by mouth with breakfast and with evening meal. Yes Historical Provider, cholecalciferol (D3-5) 5,000 Units tablet Take 1 tablet by mouth in the morning. Yes Historical Provider, furosemide (Lasix) 80 mg tablet Take 80 mg by mouth two times daily. Yes Historical Provider, insulin glargine (Lantus) 100 unit/mL injection vial Inject 60 Units under the skin in the morning. Yes Historical Provider, insulin lispro (HUMALOG KWIKPEN INSULIN SUBQ) Inject 10 Units under the skin with breakfast, with lunch, and with evening meal. Yes Historical Provider, levothyroxine (Synthroid, Levoxyl) 100 mcg tablet Take 100 mcg by mouth before breakfast. Yes Historical Provider, pregabalin (Lyrica) 150 mg capsule Take 150 mg by mouth two times daily. Yes Historical Provider, tenapanor (Xphozah) 30 mg tablet Take 30 mg by mouth two times daily. Yes Historical Provider, testosterone 1.62 % (20.25 mg/1.25 gram) gel in packet APPLY 1 PACKET DIRECTED ONCE DAILY Patient taking differently: Apply 1 Application topically in the morning. 05/15/24 07/27/24 Adams Tate NP HP Observed: 08/22/2024 3:25 PM Status: COMPLETED Source: [facility] REPOSITORY H&P reviewed. The patient wa s examined and there are no changes to the H&P. POCT GLUCOSE METER UNSOLICIT ED RESULTS Collected: 08/22/2024 3:08 PM Status: UNK Source: [facility] REPOSITORY Order Comment: Waived Testin g in the ED is performed under the ED CLIA certificate #[id number]. TYPE CODE TESTS RESULT OUT OF RANGE REFERENCE UNITS LAB 885 POCT GLUCOSE 115 High 70-105 mg/dL Result Comment: olas Performed By: #### [id number] #### [facility] ([facility]) [address] [place] [address] PROGRESS Observed: 08/22/2024 11:00 AM Status: COMPLETED Source: [facility] REPOSITORY Please let path know to add NGS for mds and myeloid with hypercellular marrow Thanks Sivan Duarte MD PROGRESS Observed: 08/22/2024 11:00 AM Status: COMPLETED Source: [facility] REPOSITORY Sedation Preparation Pre Procedure Evaluation Pre Procedure Evaluation: H&P was reviewed and the patient was examined. No change has occurred in the patient's condition since the H&P has been completed. ASA Score ASA: 3 Mallampati Mallampati: III Informed Consent Sedation Plan and Risks Explained: Patient BONE MARROW CELL DIFFERENTIAL Collected : 08/22/2024 10:20 AM Status: UNK Source: [facility] REPOSITORY Order Comment: See Bone Yisel ow Exam Report TYPE CODE TESTS RESULT OUT OF RANGE REFERENCE UNITS PATHOLOGY 499 BM TOTAL CELLS COUNTED Performed By: #### [id number] # ### [facility] ([facility]) [address] [place] [address] BONE MARROW EXAM Collected: 10:19 AM Status: UNK Source: [facility] REPOSITORY TYPE CODE TESTS RESULT OUT OF RANGE REFERENCE UNITS PATHOLOGY 1499 LAB AP CASE REPORT Result Comment: Bone Marrow Case: [id number] Authorizing Provider: Sivan Duarte MD Collected: 08/22/2024 1019 Ordering Location: [facility] CT Imaging Received: 08/22/2024 1214 Pathologist: Jade Esquivel MD Specimens: A) - Bone Marrow Clot B) - Bone Marrow Biopsy C) - Bone Marrow Aspirate PATHOLOGY 34 LAB AP REPORT FINAL DIAGNOSIS NARRATIVE Result Comment: A-C. Bone ma rrow, aspirate smears, aspirate clot section, core biopsy and peripheral blood smear: - Hypercellular bone marrow for age (80%) with maturing trilineage hematopoiesis. - Increased storage iron; no ring sideroblasts identified. - No evidence of overt dysplasia or neoplasm. Amendment electronically signed by Jade Esquivel MD on 09/27/2024 at 2:43 PM Corrected result: Previously reported on 09/01/2024 at 1650 EST. PATHOLOGY 29 LAB AP CLINICAL INFORMATION Order Diagnoses Result Comment: R59.0 - Loca lized enlarged lymph nodes [ICD-10-CM] R59.0 - Lymphadenopathy, inguinal [ICD-10-CM] R59.0 - Pelvic lymphadenopathy [ICD-10-CM] R93.89 - Nonspecific abnormal findings on diagnostic imaging [ICD-10-CM] PATHOLOGY 35 LAB AP DIAGNOSIS COMMENT Result Comment: Corrected re sult: Previously reported on 09/01/2024 at 1650 EST. PATHOLOGY [id number] LAB AP GROSS DESCRIPTION Result Comment: A. Bone Yisel ow Clot. Received in formalin is a reddish-brown blood clot measuring 3.0 x 2.0 x 0.2 cm. It is submitted for routine histology in one cassette. B. Bone Marrow Biopsy. Received in formalin is a hard, reddish-burns, cylindrical fragment of tissue measuring 1.5 x 0.2 x 0.2 cm. The specimen is submitted for decalcification and subsequent microscopy. C. Bone Marrow Aspirate. Received are multiple prepared glass slides for Quezada Giemsa staining. One slide is stained for iron. PATHOLOGY 56 LAB AP CBC AND DIFFERENTIAL Result Comment: Complete blo od count (CBC) done on 08/22/24 shows the following: WBC, 9.66 x 10^3/???L; hemoglobin, 12.1 g/dL; hematocrit, 36.9%; MCV, 94.4 fL; and platelet count, 227 x10^3/???L. Absolute neutrophil count, 6.60 x 10^3/???L; absolute lymphocyte count, 1.77 x 10^3/???L; absolute monocyte count, 0.65 x 10^3/???L; absolute eosinophil count, 0.53 x 10^3/???L; and absolute basophil count, 0.06 x 10^3/???L. Review of the peripheral blood smear reveals adequate granulocytes, lymphocytes and monocytes with unremarkable leukocyte morphology. Mild normocytic, normochromic anemia with no significant RBC morphology. Platelets are adequate with unremarkable morphology. PATHOLOGY 59 LAB AP ASPIRATE SMEAR Result Comment: The aspirate smears are adequately spiculate. The dylglcv-hy-znnhfngvt ratio is normal. Cells of the myeloid lineage are adequate in number with normal maturation. There is no increase in blasts or dysplasia identified. Cells of the erythroid lineage are adequate in number with normal maturation. There is no evidence of overt dysplasia identified. Megakaryocytes appear adequate in number with predominantly normal morphology. Plasma cells are not increased in number and show no atypical features. Cell count: Blasts, 0%; progranulocytes, 1%; myelocytes, 14%; metamyelocytes, 10%: bands/segmented neutrophils, 31%; eosinophils, 6%; basophils, 0%; monocytes, 4%; lymphocytes, 9%; plasma cells, 1%; nucleated erythroid precursors, 24% (500 cells counted). PATHOLOGY 61 LAB AP CORE BIOPSY Result Comment: The fragment ed core biopsy reveals 0.8 cm of evaluable marrow with moderate aspiration artifact. Marrow cellularity approximates 80%, hypercellular for age. Maturing trilineage hematopoiesis is well represented. No atypical proliferation is identified. PATHOLOGY 62 LAB AP CLOT SECTION Result Comment: The aspirate clot section reveals adequate marrow particles. Marrow cellularity and composition are similar to that identified in the core biopsy. There is a single, well-circumscribed lymphoid aggregate identified. PATHOLOGY 33 LAB AP SPECIAL STAINS Result Comment: Iron stains were completed on the aspirate clot section, core biopsy and aspirate smear. Storage iron is decreased; no ring sideroblasts are identified. PATHOLOGY 55 LAB AP FLOW CYTOMETRY SUMMARY Result Comment: Flow cytomet ry studies were completed at [facility]: Bone marrow, flow cytometric immunophenotyping: - Normal immunophenotyping results. No monotypic B-cell population or increase in blasts identified. PATHOLOGY 769 LAB AP ASR DISCLAIMER The interpretation of this case included the use of immunohistochemistry or special stains. These tests have not been cleared or approved by the U.S. Food and Drug Administration. The FDA has determined that such clearance or approval is not necessary. These tests are used for clinical purposes and should not be regarded as investigational or for research. This laboratory is certified to perform high complexity testing under the Clinical Laboratory Improvement Amendments of 1998. PATHOLOGY 2849 LAB AP ANCILLARY RESULTS Result Comment: Ancillary st udies were completed at [facility]: Chromosomes, hematologic, bone marrow: - 46,XY[20]. Corrected result: Previously reported on 09/01/2024 at 1650 EST. PATHOLOGY 533 LAB AP CORRECTION HISTORY Karyotype analysis completed; no change in diagnosis. Performed By: #### [id number] #### [facility] ([facility]) [address] [place] [address] CBC WITH AUTO DIFFERENTIAL Collected: 08/22/2024 9:27 AM Status: UNK Source: [facility] REPOSITORY TYPE CODE TESTS RESULT OUT OF RANGE REFERENCE UNITS LAB [id number] LEUKOCYTES(10*3/ UL) IN BLOOD BY AUTOMATED COUNT 9.66 4.00-10.60 10*3/uL LAB 2058892 ERYTHROCYTES (10*6/UL) IN BLOOD BY AUTOMATED COUNT 3.91 Low 4.20-5.70 10*6/uL LAB 3034430 HEMOGLOBIN (G/DL) IN BLOOD 12.1 Low 13.0-17.0 g/dL LAB 0181791 HEMATOCRIT (%) IN BLOOD BY AUTOMATED COUNT 36.9 Low 39.0-55.0 % LAB 9273783 ERYTHROCYTE MEAN CORPUSCULAR VOLUME (FL) BY AUTOMATED COUNT 94.4 82.0-98.0 fL LAB 9552634 ERYTHROCYTE MEAN CORPUSCULAR HEMOGLOBIN (PG) BY AUTOMATED COUNT 30.9 27.0-33.0 pg LAB 9576055 ERYTHROCYTE MEAN CORPUSCULAR HEMOGLOBIN CONCENTRATION (G/DL) BY AUTOMATED 32.8 32.0-35.0 g/dL LAB 9539119 ERYTHROCYTE DISTRIBUTION WIDTH (RATIO) BY AUTOMATED COUNT 14.5 11.5-15.0 % LAB 0400559 NEUTROPHILS/100 LEUKOCYTES IN BLOOD BY AUTOMATED COUNT 68.4 40.0-72.0 % LAB 1982359 LYMPHOCYTES/100 LEUKOCYTES IN BLOOD BY AUTOMATED COUNT 18.3 Low 20.0-45.0 % LAB 5891621 MONOCYTES/100 LEUKOCYTES IN BLOOD BY AUTOMATED COUNT 6.7 5.0-12.0 % LAB 5699862 EOSINOPHILS/100 LEUKOCYTES IN BLOOD BY AUTOMATED COUNT 5.5 0.0-6.0 % LAB 0531037 BASOPHILS/100 LEUKOCYTES IN BLOOD BY AUTOMATED COUNT 0.6 0.0-1.0 % LAB 0351693 NEUTROPHILS (10*3/UL) IN BLOOD BY AUTOMATED COUNT 6.60 1.60-7.60 10*3/uL LAB 6190239 LYMPHOCYTES (10*3/UL) IN BLOOD BY AUTOMATED COUNT 1.77 1.20-4.00 10*3/uL LAB 7291150 MONOCYTES (10*3/UL) IN BLOOD BY AUTOMATED COUNT 0.65 0.10-1.00 10*3/uL LAB 4406554 EOSINOPHILS (10*3/UL) IN BLOOD BY AUTOMATED COUNT 0.53 High 0.00-0.50 10*3/uL LAB 5353120 BASOPHILS (10*3/UL) IN BLOOD BY AUTOMATED COUNT 0.06 0.00-0.20 10*3/uL LAB 3282285 PLATELETS (10*3/UL) IN BLOOD AUTOMATED COUNT 227 150-400 10*3/uL LAB 254 NRBC (PER 100 WBCS) BY AUTOMATED COUNT 0.0 0 % LAB 1767 IMMATURE GRANULOCYTES/100 LEUKOCYTES IN BLOOD BY AUTOMATED COUNT 0.5 0.0-1.0 % LAB 1768 IMMATURE GRANULOCYTES (10*3/UL) IN BLOOD BY AUTOMATED COUNT 0.05 0.00-0.20 10*3/uL Performed By: #### [id number] # ### [facility] ([facility]) [address] [place] [address] PROTIME-INR Collected: 08/22/2024 9:27 AM Status: UN K Source: [facility] REPOSITORY TYPE CODE TESTS RESULT OUT OF RANGE REFERENCE UNITS LAB 1255114 PROTHROMBIN TIME (PT) IN PPP BY COAGULATION ASSAY 13.3 12.3-14.8 Seconds LAB 2476480 INR IN PPP BY COAGULATION ASSAY 1.01 0.90-1.10 NA Result Comment: [facility] RECOMM ENDED INR FOR WARFARIN THERAPY CONDITION INR PROPHYLAXIS OF VENOUS THROMBOSIS 2-3 (HIGH-RISK SURGERY) TREATMENT OF VENOUS THROMBOSIS 2-3 TREATMENT OF PULMONARY EMBOLISM 2-3 PREVENTION OF SYSTEMIC EMBOLISM: 2-3 ACUTE MYOCARDIAL INFARCTION TISSUE HEART VALVES VALVULAR HEART DISEASE ATRIAL FIBRILLATION RECURRENT SYSTEMIC EMBOLISM MECHANICAL HEART VALVE 2.5-3.5 FROM: ORAL ANTICOAGULANTS. MECHANISM OF ACTION, CLINICAL EFFECTIVENESS, AND OPTIMAL THERAPEUTIC RANGE. CHEST 1995;108:231S-246S. Performed By: #### [id number] ## ## [facility] [employer] [facility] [address] [place] [address] LAB Observed: 08/22/2024 9:25 AM Status: COMPLETED Source: [facility] REPOSITORY [id number] Evans Forte 0 1970 M Date Provider Department Center 08/22/20245-[facility] RESOURCE [facility] [place] [facility] Family History Problem Relation Age of Onset Breast cancer Mother Comments: age 53, METS to brain Heart disease Father Heart attack Father Comments: age 26 No Known Problems Sister Comments: half-sister Breast cancer Maternal Grandmother Crohn's disease Daughter Comments: perforated bowel Cancer Father's Brother Comments: Unknown type and region Family Status - Relation Status Age at Mother Father Sister Maternal Grandmother Daughter Father's Brother Alive CT GUIDED BIOPSY BONE MARROW Observed: 08/22/2024 9:24 AM Status: UNK Source: [facility] REPOSITORY Procedure: CT-guided bone ma rrow biopsy and bone marrow aspiration Staff: Esme Resident: Marquise Contrast: None Complications: None Medications: Versed 2 mg iv. Fentanyl 100 mcg iv. Moderate sedation was monitored by the interventional radiology nursing staff. Total sedation time of 20 minutes Indication: Concern for lymphoma, staging Procedure: Using CT guidance, the Bevy system was used to perform bone marrow aspirate via the left posterior superior iliac spine. Approximately 15 mL of marrow was removed and given to pathology. Next, via a separate puncture, bone marrow biopsy was performed. The biopsy specimen was given to pathology. The needle was then removed and hemostasis was achieved using manual compression. All CT scans at this facility use dose modulation, iterative reconstruction, and/or weight based dosing when appropriate to reduce radiation dose to as low as reasonably achievable IMPRESSION: Impression: Successful bone marrow aspirate and biopsy. Electronically signed: Jey Victoria. Not Vldtd ORDERS ONLY Observed: 08/18/2024 12:00 AM Status: COMPLETED Source: [facility] REPOSITORY [id number] Evans Forte 0 1970 M Date Provider Department Center 08/18/2024 [facility] Family History Problem Relation Age of Onset Breast cancer Mother Comments: age 53, METS to brain Heart disease Father Heart attack Father Comments: age 26 No Known Problems Sister Comments: half-sister Breast cancer Maternal Grandmother Crohn's disease Daughter Comments: perforated bowel Cancer Father's Brother Comments: Unknown type and region Family Status - Relation Status Age at Mother Father Sister Maternal Grandmother Daughter Father's Brother Alive HP Observed: 08/08/2024 2:45 PM Status: COMPLETED Source: [facility] REPOSITORY Subjective Patient ID: Evans Forte is a 54 y.o. male who presents for Consult (Patient is here today for enlarged lymph nodes and is s/p PET scan. ). HPI 54 years old morbid obesity white male is a kidney transplant candidate. CT scan and PET scan showed right groin lymphadenopathy. Transplant service is requesting excisional lymph node biopsy to rule out lymphoma. Review of Systems Constitutional: Negative. HENT: Negative. Eyes: Negative. Respiratory: Negative. Cardiovascular: Negative. Gastrointestinal: Negative. Genitourinary: Negative. Musculoskeletal: Negative. Skin: Negative. Neurological: Negative. Hematological: Negative. Objective Visit Vitals BP 171/82 (BP Location: Left arm, Patient Position: Sitting) Pulse 78 Physical Exam Constitutional: Appearance: He is obese. HENT: Head: Atraumatic. Cardiovascular: Rate and Rhythm: Normal rate. Pulmonary: Effort: Pulmonary effort is normal. Abdominal: General: Abdomen is flat. Palpations: Abdomen is soft. Musculoskeletal: Cervical back: Neck supple. Neurological: Mental Status: He is alert. Palpable right groin lymphadenopathy PET/CT skull base to mid thigh FDG Order: [id number] Status: Final result Visible to patient: Yes (seen) Dx: Enlarged lymph nodes; Pre-transplant ... 0 Result Notes Details Reading Physician Reading Date Result Priority Alonso Jaffe MD [phone] 07/31/2024 Routine Narrative & Impression History: Pretransplant evaluation. Follow-up for enlarged lymph nodes on CT of the abdomen and pelvis from 07/11/2024 Exam/Technique: PET/CT from the skull base to the proximal thighs with 11.423 millicuries of F-18 FDG injected. Comparison: Findings: *Enlarged right iliac and right inguinal lymph nodes are redemonstrated. These display intense increased PET activity, higher than liver activity. The largest intensively PET avid right inguinal lymph node measures 1.8 cm in greatest dimension. *There is diffuse mottled increased activity in bone marrow is scattered throughout the spine and in the pelvic bones. The most intense areas are slightly higher than liver activity *There is also intense PET activity in an area of skin thickening anteriorly over the left lower abdominal wall, at the level of the pubic symphysis with the patient lying supine study *No other sites of abnormal PET activity displayed. *CT images display high density material layering in the gallbladder. This is consistent with sludge, milk of calcium bile, or perhaps small calculi. A low density left adrenal nodule is redemonstrated that is typical for a lipid rich adenoma. IMPRESSION: Right iliac and right inguinal lymphadenopathy is PET avid and suspicious for active neoplasm (Deauville 4 if corresponds to a lymphoma). The largest right inguinal lymph node would be readily amenable to percutaneous biopsy. Increased bone activity concerning for marrow infiltration with neoplasm (Deauville 4). Activity and nonspecific skin lesion over the lowermost left anterior abdominal wall. Clinical correlation/evaluation needed. Electronically signed: Alonso Jaffe. Exam Ended: 07/28/24 15:00 Last Resulted: 07/31/24 09:49 CT abdomen pelvis wo renal recipient Order: [id number] Status: Edited Result - FINAL Visible to patient: Yes (seen) Dx: Pre-transplant evaluation for kidney ... 0 Result Notes Details Reading Physician Reading Date Result Priority Alonso Sampson MD [phone] 07/12/2024 Routine Addenda Addendum: Note that there is no hydronephrosis or urinary tract calculi. Narrative & Impression CT ABDOMEN AND PELVIS WITHOUT CONTRAST COMPARISON: 04/07/2022 CLINICAL HISTORY: End-stage renal disease, pretransplant evaluation. TECHNIQUE: Unenhanced axial images were obtained from the lung bases to the pubic symphysis with sagittal and coronal 2D reformatted images. Oral contrast administered: No. Automatic exposure control (AEC) was utilized. Findings: Low-attenuation 2.6 cm left adrenal nodule consistent with a benign adenoma, unchanged. Normal right adrenal gland. Gallbladder is present. Liver, spleen, and pancreas demonstrate no acute findings given compromised evaluation without intravenous contrast. No free intraperitoneal fluid or free intraperitoneal air. No bowel obstruction. There are enlarged right pelvic lymph nodes along the external iliac vessels, the largest adjacent to lateral aspect of right common iliac artery measuring 1.7 cm short axis now seen as well as mildly enlarged right common iliac lymph node. No enlarged upper abdominal lymph nodes. Minimal calcified plaque of normal caliber abdominal aorta. No discrete calcified plaque of right iliac artery. Minimal calcified plaque of left common, internal, and external iliac arteries. No suspicious or acute osseous lesion. IMPRESSION: 1. Enlarged pelvic lymph nodes which are nonspecific. Lymphoma/leukemia is not excluded and clinical correlation is advised. 2. Only minimal calcified plaque of the left iliac artery as detailed above. 3. Additional chronic changes as described. All CT scans at this facility use dose modulation, iterative reconstruction, and/or weight based dosing when appropriate to reduce radiation dose to as low as reasonably achievable. Electronically signed: Alonso Sampson. Exam Ended: 07/11/24 12:14 Last Resulted: 07/12/24 12:06 Assessment/Plan Right groin lymphadenopathy Excisional right groin lymph node biopsy was offered to the patient, informed consent was obtained. No diagnosis found. No orders of the defined types were placed in this encounter. No results found for this or any previous visit (from the past 36 hour(s)). No follow-ups on file. CONSULT Observed: 08/08/2024 2:45 PM Status: COMPLETED Source: [facility] REPOSITORY [id number] Evans Forte 0 1970 M Date Provider Department Center 08/08/2024 Kannan-ERICK [facility] SURG [place] Family History Problem Relation Age of Onset Breast cancer Mother Comments: age 53, METS to brain Heart disease Father Heart attack Father Comments: age 26 No Known Problems Sister Comments: half-sister Breast cancer Maternal Grandmother Crohn's disease Daughter Comments: perforated bowel Cancer Father's Brother Comments: Unknown type and region Family Status - Relation Status Age at Mother Father Sister Maternal Grandmother Daughter Father's Brother Alive Level of Service:85986 [place] OFFICE/OUTPATIENT [facility] 30 MINUTES Reason for Visit and Comments: Consult [484] - Patient is here today for enlarged lymph nodes and is s/p PET scan. PROGRESS Observed: 08/08/2024 2:45 PM Status: COMPLETED Source: [facility] REPOSITORY Subjective Patient ID: Evans Forte is a 54 y.o. male who presents for Consult (Patient is here today for enlarged lymph nodes and is s/p PET scan. ). HPI 54 years old morbid obesity white male is a kidney transplant candidate. CT scan and PET scan showed right groin lymphadenopathy. Transplant service is requesting excisional lymph node biopsy to rule out lymphoma. Review of Systems Constitutional: Negative. HENT: Negative. Eyes: Negative. Respiratory: Negative. Cardiovascular: Negative. Gastrointestinal: Negative. Genitourinary: Negative. Musculoskeletal: Negative. Skin: Negative. Neurological: Negative. Hematological: Negative. Objective Visit Vitals BP 171/82 (BP Location: Left arm, Patient Position: Sitting) Pulse 78 Physical Exam Constitutional: Appearance: He is obese. HENT: Head: Atraumatic. Cardiovascular: Rate and Rhythm: Normal rate. Pulmonary: Effort: Pulmonary effort is normal. Abdominal: General: Abdomen is flat. Palpations: Abdomen is soft. Musculoskeletal: Cervical back: Neck supple. Neurological: Mental Status: He is alert. Palpable right groin lymphadenopathy PET/CT skull base to mid thigh FDG Order: [id number] Status: Final result Visible to patient: Yes (seen) Dx: Enlarged lymph nodes; Pre-transplant ... 0 Result Notes Details Reading Physician Reading Date Result Priority Alonso Jaffe MD [phone] 07/31/2024 Routine Narrative & Impression History: Pretransplant evaluation. Follow-up for enlarged lymph nodes on CT of the abdomen and pelvis from 07/11/2024 Exam/Technique: PET/CT from the skull base to the proximal thighs with 11.423 millicuries of F-18 FDG injected. Comparison: Findings: *Enlarged right iliac and right inguinal lymph nodes are redemonstrated. These display intense increased PET activity, higher than liver activity. The largest intensively PET avid right inguinal lymph node measures 1.8 cm in greatest dimension. *There is diffuse mottled increased activity in bone marrow is scattered throughout the spine and in the pelvic bones. The most intense areas are slightly higher than liver activity *There is also intense PET activity in an area of skin thickening anteriorly over the left lower abdominal wall, at the level of the pubic symphysis with the patient lying supine study *No other sites of abnormal PET activity displayed. *CT images display high density material layering in the gallbladder. This is consistent with sludge, milk of calcium bile, or perhaps small calculi. A low density left adrenal nodule is redemonstrated that is typical for a lipid rich adenoma. IMPRESSION: Right iliac and right inguinal lymphadenopathy is PET avid and suspicious for active neoplasm (Deauville 4 if corresponds to a lymphoma). The largest right inguinal lymph node would be readily amenable to percutaneous biopsy. Increased bone activity concerning for marrow infiltration with neoplasm (Deauville 4). Activity and nonspecific skin lesion over the lowermost left anterior abdominal wall. Clinical correlation/evaluation needed. Electronically signed: Alonso Jaffe. Exam Ended: 07/28/24 15:00 Last Resulted: 07/31/24 09:49 CT abdomen pelvis wo renal recipient Order: [id number] Status: Edited Result - FINAL Visible to patient: Yes (seen) Dx: Pre-transplant evaluation for kidney ... 0 Result Notes Details Reading Physician Reading Date Result Priority Alonso Sampson MD [phone] 07/12/2024 Routine Addenda Addendum: Note that there is no hydronephrosis or urinary tract calculi. Narrative & Impression CT ABDOMEN AND PELVIS WITHOUT CONTRAST COMPARISON: 04/07/2022 CLINICAL HISTORY: End-stage renal disease, pretransplant evaluation. TECHNIQUE: Unenhanced axial images were obtained from the lung bases to the pubic symphysis with sagittal and coronal 2D reformatted images. Oral contrast administered: No. Automatic exposure control (AEC) was utilized. Findings: Low-attenuation 2.6 cm left adrenal nodule consistent with a benign adenoma, unchanged. Normal right adrenal gland. Gallbladder is present. Liver, spleen, and pancreas demonstrate no acute findings given compromised evaluation without intravenous contrast. No free intraperitoneal fluid or free intraperitoneal air. No bowel obstruction. There are enlarged right pelvic lymph nodes along the external iliac vessels, the largest adjacent to lateral aspect of right common iliac artery measuring 1.7 cm short axis now seen as well as mildly enlarged right common iliac lymph node. No enlarged upper abdominal lymph nodes. Minimal calcified plaque of normal caliber abdominal aorta. No discrete calcified plaque of right iliac artery. Minimal calcified plaque of left common, internal, and external iliac arteries. No suspicious or acute osseous lesion. IMPRESSION: 1. Enlarged pelvic lymph nodes which are nonspecific. Lymphoma/leukemia is not excluded and clinical correlation is advised. 2. Only minimal calcified plaque of the left iliac artery as detailed above. 3. Additional chronic changes as described. All CT scans at this facility use dose modulation, iterative reconstruction, and/or weight based dosing when appropriate to reduce radiation dose to as low as reasonably achievable. Electronically signed: Alonso Sampson. Exam Ended: 07/11/24 12:14 Last Resulted: 07/12/24 12:06 Assessment/Plan Right groin lymphadenopathy Excisional right groin lymph node biopsy was offered to the patient, informed consent was obtained. No diagnosis found. No orders of the defined types were placed in this encounter. No results found for this or any previous visit (from the past 36 hour(s)). No follow-ups on file. PROGRESS Observed: 08/08/2024 10:00 AM Status: COMPLETED Source: [facility] RE[facility] Attestation signed by Sivan Duarte MD at 08/09/2024 9:02 PM By using the attestations below, the signing clinician agrees that I have read and verify that the documentation has been personally reviewed by me and ensure that the documentation accurately reflects the encounter. As noted by Dr Iggy VEGA: I personally saw this patient on the day of the encounter, performed the ceja portion(s) of the service and participated in the management and confirm the resident's documentation. Please note there may be an additional personal documentation from me. Additional Comments: 1. Lymphadenopathy, inguinal - CT guided biopsy bone marrow; Future 2. Pelvic lymphadenopathy - CT guided biopsy bone marrow; Future 3. Nonspecific abnormal findings on diagnostic imaging - CT guided biopsy bone marrow; Future He gets his wale and nutritional repletion from nephrology . He will follow up after his lymph node biopsy and schedule his bone marow bx after Questions answered Sivan Duarte MD HEMATOLOGY and MEDICAL ONCOLOGY Dr. Jasmin Junior MD / MD Treasure Jimenes, PAOLA / Desire Bueno CNP / Yokasta Hughes APRN-WILIAN Patient Name: Evans Forte Date of : 1970 Encounter Date: 08/08/2024 Patient Care Team: Idania Gaston DO as PCP - General Nery Clay MD as Consulting Physician (Transplant Surgery) Adams Tate NP as Nurse Practitioner (Urology) Delano Bardales MD as Consulting Physician (Urology) IMPRESSION and ASSESSMENT: Evans Forte is a 54 y.o. male with: Cancer Staging No matching staging information was found for the patient. Diagnoses and all orders for this visit: Lymphadenopathy, inguinal - CT guided biopsy bone marrow; Future Pelvic lymphadenopathy - CT guided biopsy bone marrow; Future Nonspecific abnormal findings on diagnostic imaging - CT guided biopsy bone marrow; Future RECOMMENDATIONS and PLAN: Perform excisional right inguinal Ln biopsy. Patient already has appointment with Dr Carter for today. Arrange for bone marrow aspiration and biopsy. Patient wants to await Ln biopsy result before proceeding with BM evaluation. -Return to clinic in 4 weeks Iggy Shelley MD PGY 6 hematology and oncology fellow SUBJECTIVE: Interval History: 08/08/2024 Evans Forte is a 54 y.o. man here for pre renal transplant evaluation for LAD noted in right inguinal area and pelvis along with PET avidity on imaging and PET avid signals noted from bone marrow. He has no complaints today. Denies any CP, fever, chills, SOB, cough, skin rash or lesion. Does report 2 wounds on right foot sole with MRI done 11/27 r/o any osteomyelitis. The wounds have scabbed and healing properly. His PSA level is normal. Denies any hematochezia and blood in urine. Family history is positive for cancer affecting his mom but he is unsure what the nature of cancer was. Oncology History No history exists. [No matching plan found] Other History: - Relevant medical/surgical/family/social histories, medications, problem list and allergies were reviewed and updated as needed today. OBJECTIVE: BP (!) 183/100 (BP Location: Right wrist, Patient Position: Sitting, BP Cuff Size: Large adult) Comment: Patient did not take BP medication this morning Pulse 77 Temp 36.1 ???C (96.9 ???F) (Oral) Ht 1.88 m (6' 2 ) Wt (!) 143 kg (315 lb) SpO2 99% BMI 40.44 kg/m??? Wt Readings from Last 12 Encounters: 08/08/24 (!) 143 kg (315 lb) 08/08/24 (!) 143 kg (315 lb) 07/25/24 (!) 143 kg (315 lb) 07/11/24 (!) 137 kg (303 lb) 06/22/24 (!) 137 kg (303 lb) 06/20/24 (!) 139 kg (306 lb 7 oz) 01/10/24 (!) 144 kg (317 lb) 06/03/23 (!) 144 kg (317 lb) 04/27/23 (!) 144 kg (317 lb) 03/01/23 (!) 142 kg (313 lb) 11/26/22 (!) 142 kg (313 lb) 09/03/22 (!) 142 kg (313 lb 0.9 oz) ECOG Performance Status: 0 - Asymptomatic Physical Examination: General: Well-appearing, in no acute distress, sitting comfortably in chair. Head: Normocephalic, atraumatic. Neck: No appreciable JVP elevation. HEENT: No scleral icterus. Oral mucosa is moist without erythema, lesions, or ulcerations. Lymph: No palpable pericervical, anterior cervical, lateral cervical, or axillary lymphadenopathy bilaterally. Pulm: No audible wheezing, rales, or rhonchi. Breathing is non-labored. GI: Abdomen is soft, non-distended, non-tender. No hepatosplenomegaly. MSK: No gross bony or joint deformities, effusions, or tenderness. Ext: No peripheral edema, no erythema. Skin: No jaundice. Right foot sole has 2 healing ulcers with scabbing Neuro: Alert and oriented x 3. Psych: Normal mood, normal affect. Diagnostic Results Recent Laboratory Results: Lab Results Component Value Date WBC 8.33 07/11/2024 RBC 3.95 (L) 07/11/2024 HGB 11.9 (L) 07/11/2024 HCT 36.3 (L) 07/11/2024 MCV 91.9 07/11/2024 MCH 30.1 07/11/2024 MCHC 32.8 07/11/2024 PLT 331 07/11/2024 RDW 14.6 07/11/2024 NEUTROPCT 62.5 04/07/2022 MONOPCT 9.8 07/11/2024 EOSPCT 3.6 07/11/2024 BASOPCT 1.0 07/11/2024 NEUTROABS 4.84 07/11/2024 MONOSABS 0.82 07/11/2024 EOSABS 0.30 07/11/2024 Lab Results Component Value Date GLUCOSE 216 (H) 07/11/2024 BUN 53 (H) 07/11/2024 CREATININE 7.27 (H) 07/11/2024 NA 139 07/11/2024 K 4.1 07/11/2024 CL 98 07/11/2024 CALCIUM 9.4 07/11/2024 PROT 7.6 07/11/2024 AST 8 (L) 07/11/2024 ALT 12 07/11/2024 ALKPHOS 115 (H) 07/11/2024 BILITOT 0.5 07/11/2024 CO2 31 07/11/2024 CO2 24 04/07/2022 ANIONGAP 14 07/11/2024 IMAGING: PET/CT skull base to mid thigh FDG Result Date: 07/31/2024 Right iliac and right inguinal lymphadenopathy is PET avid and suspicious for active neoplasm (Deauville 4 if corresponds to a lymphoma). The largest right inguinal lymph node would be readily amenable to percutaneous biopsy. Increased bone activity concerning for marrow infiltration with neoplasm (Deauville 4). Activity and nonspecific skin lesion over the lowermost left anterior abdominal wall. Clinical correlation/evaluation needed. Electronically signed: Alonso Jaffe. CT abdomen pelvis wo renal recipient Addendum Date: 07/12/2024 Addendum: Note that there is no hydronephrosis or urinary tract calculi. Electronically signed: Alonso Sampson. Result Date: 07/12/2024 1. Enlarged pelvic lymph nodes which are nonspecific. Lymphoma/leukemia is not excluded and clinical correlation is advised. 2. Only minimal calcified plaque of the left iliac artery as detailed above. 3. Additional chronic changes as described. All CT scans at this facility use dose modulation, iterative reconstruction, and/or weight based dosing when appropriate to reduce radiation dose to as low as reasonably achievable. Electronically signed: Alonso Sampson. Speech recognition software was used in the preparation of this note, errors in cloth burler may be present. Please call if there are questions. 36 Observed: 08/01/2024 10:31 AM Status: COMPLETED Source: [facility] REPOSITORY Left message to call office back and schedule with Dr Nguyen for enlarged lymph nodes per referral 36 Observed: 07/31/2024 4:12 PM Status: COMPLETED Source: [facility] REPOSITORY Patient contacted the TC reg arding the results of his PET/CT that he could see results of on his mychart. Patient was concerned with his abnormal results and what he needed to do about them. TC reviewed results with Dr. Burgess and per his verbal he was referred to general surgery for lymph node excision and biopsy and referred to Hematology oncology. TC also explained to patient that his chart will be put in inactive status until he is worked up for the lesion and it is determined the diagnosis and required wait time. Patient verbalized understanding. Maria De Jesus Rutledge RN POCT GLUCOSE METER UNSOLICIT ED RESULTS Collected: 07/28/2024 12:56 PM Status: UNK Source: [facility] REPOSITORY Order Comment: Waived Testin g in the ED is performed under the ED CLIA certificate #[id number]. TYPE CODE TESTS RESULT OUT OF RANGE REFERENCE UNITS LAB 885 POCT GLUCOSE 125 High 70-105 mg/dL Result Comment: [email or web address] Performed By: #### [id number] #### [facility] [address] [place] [address] EUGENIE Observed: 07/27/2024 3:04 PM Status: COMPLETED Source: [facility] REPOS[facility]ORY RN educated pt on d/c instru ctions. This included: site care, limited physical activity, resume normal diet, future appointments, medications, and moderate sedation instructions. RN educated pt on when to notify physician and when to go to the hospital. RN educated pt on importance of not overusing stairs at this time and limited weight bearing of 5lbs. RN encouraged pt to voice any questions or concerns, and answered any questions or concerns if pt verbalized. Pt was wheeled off of unit with all of belongings. EUGENIE Observed: 07/27/2024 3:04 PM Status: COMP LETED Source: [facility] REPOSITORY .dc HP Observed: 07/27/2024 8:20 AM Status: COMPLETED Source: [facility] History Of Present Illness Evans Forte is a 54 y.o. male presenting for cardiac catheterization. He is a 54 yo man with history of ESRD secondary to diabetes, currently on dialysis via a left arm AV fistula. Prior history is significant for diabetes for 30 years, hypertension for 10 years, hyperlipidemia all on treatment. No prior cardiac history except for cardiac catheterization done in 2018 in the setting of abnormal stress test that showed normal coronary arteries. he denies chest pain, shortness of breath, palpitations, dizziness, syncope. He has mild leg edema. he has good exercise tolerance. There is no claudication. He was evaluated in cardiology clinic on 06/22/2024. His echocardiogram showed normal ventricular and valvular function. His stress test showed anterolateral ischemia. Past Medical History He has a past medical history of Adrenal nodule ([facility]), Anemia, Anxiety, Charcot foot due to diabetes mellitus ([facility]), Chronic sinusitis, COVID-19, Diabetic foot ulcers ([facility]/H[facility]), Diabetic polyneuropathy ([facility]), Diabetic retinopathy ([facility]), ED (erectile dysfunction), ESRD (end stage renal disease) ([facility]) (11/23/2022), GERD (gastroesophageal reflux disease), Glaucoma, History of tobacco use, Hyperlipidemia, Hypertension, Hypogonadism in male, Hypothyroidism, Insomnia, Neuropathy, Obesity, Osteomyelitis of ankle or foot, left, acute ([facility]/HCC), Pancreatitis, Past history of chewing tobacco use, Peripheral artery disease ([facility]/H[facility]), Proteinuria, Sleep apnea, Type 2 diabetes mellitus ([facility]), and Vitamin D deficiency. Surgical History He has a past surgical history that includes Cardiac catheterization (07/15/2018); Foot surgery (Right, 12/05/2018); Colonoscopy (09/03/2022); Colonoscopy (06/18/2022); Peritoneal catheter insertion (11/06/2022); Colonoscopy (02/22/2024); AV fistula placement (09/2023); Peritoneal catheter removal (10/13/2023); Toe amputation (Left); Insertion / removal / replacement venous access catheter (09/16/2023); Wound debridement (Right, 12/24/2023); Wound debridement (Right, 01/24/2024); Wound debridement (Right, 02/29/2024); Wound debridement (Right, 03/30/2024); Wound debridement (Right, 05/04/2024); Wound debridement (Right, 05/18/2024); and Wound debridement (Right, 06/08/2024). Social History He reports that he has never smoked. His smokeless tobacco use includes chew. He reports that he does not currently use alcohol. He reports that he does not currently use drugs. Allergies Adhesive tape-silicones, Latex, Vancomycin, Adhesive, Haloperidol, and [place]ty[place] oil Medications Medications Prior to Admission Medication Sig Dispense Refill Last Dose anastrozole (Arimidex) 1 mg chemo tablet Take 1 tablet (1 mg total) by mouth in the morning Swallow whole with a drink of water. 90 tablet 3 07/27/2024 aspirin 81 mg chewable tablet Chew 1 tablet (81 mg) in the morning. 90 tablet 3 07/27/2024 atorvastatin (Lipitor) 20 mg tablet Take 20 mg by mouth in the morning. 07/27/2024 calcitriol (Rocaltrol) 0.25 mcg capsule Take 0.25 mcg by mouth in the morning. 07/26/2024 calcium acetate (Phoslo) 667 mg capsule Take 667 mg by mouth in the morning. 07/26/2024 carvedilol (Coreg) 12.5 mg tablet Take 12.5 mg by mouth with breakfast and with evening meal. 07/27/2024 furosemide (Lasix) 80 mg tablet Take 80 mg by mouth two times daily. 07/27/2024 insulin glargine (Lantus) 100 unit/mL injection vial Inject 60 Units under the skin in the morning. 07/26/2024 insulin lispro (HUMALOG KWIKPEN INSULIN SUBQ) Inject 10 Units under the skin with breakfast, with lunch, and with evening meal. 07/26/2024 levothyroxine (Synthroid, Levoxyl) 100 mcg tablet Take 100 mcg by mouth before breakfast. 07/27/2024 pregabalin (Lyrica) 150 mg capsule Take 150 mg by mouth two times daily. 07/26/2024 tenapanor (Xphozah) 30 mg tablet Take 30 mg by mouth two times daily. 07/27/2024 testosterone 1.62 % (20.25 mg/1.25 gram) gel in packet APPLY 1 PACKET DIRECTED ONCE DAILY (Patient taking differently: Apply 1 Application topically in the morning.) 37.5 g 0 07/27/2024 b complex 0.4 mg tablet Take 1 tablet by mouth in the morning and at bedtime. More than a month cholecalciferol (D3-5) 5,000 Units tablet Take 1 tablet by mouth in the morning. More than a month Review of Systems Constitutional: Negative for fever and night sweats. HENT: Negative. Eyes: Negative. Cardiovascular: Positive for leg swelling. Negative for chest pain, claudication, dyspnea on exertion, irregular heartbeat, palpitations and syncope. Respiratory: Negative for cough and wheezing. Hematologic/Lymphatic: Does not bruise/bleed easily. Skin: Negative for color change, poor wound healing and rash. Musculoskeletal: Negative. Neurological: Negative for dizziness, headaches and seizures. Psychiatric/Behavioral: Negative for depression. Physical Exam Constitutional: Appearance: He is well-developed. He is obese. He is not ill-appearing. HENT: Head: Normocephalic and atraumatic. Nose: Nose normal. Eyes: General: No scleral icterus. Pupils: Pupils are equal, round, and reactive to light. Neck: Thyroid: No thyromegaly. Vascular: No JVD. Cardiovascular: Rate and Rhythm: Normal rate and regular rhythm. Pulses: Radial pulses are 2+ on the right side and 2+ on the left side. Heart sounds: Normal heart sounds. No murmur heard. No friction rub. No gallop. Arteriovenous access: Left arteriovenous access is present. Pulmonary: Effort: Pulmonary effort is normal. No respiratory distress. Breath sounds: Normal breath sounds. No wheezing or rales. Chest: Chest wall: No tenderness. Abdominal: General: Bowel sounds are normal. There is no distension. Palpations: Abdomen is soft. Tenderness: There is no abdominal tenderness. Musculoskeletal: General: No swelling. Cervical back: Neck supple. Skin: General: Skin is warm and dry. Neurological: General: No focal deficit present. Mental Status: He is alert and oriented to person, place, and time. Psychiatric: Mood and Affect: Mood normal. Behavior: Behavior is cooperative. Judgment: Judgment normal. Last Recorded Vitals Blood pressure 125/70, pulse 79, resp. rate 17, SpO2 100%. Relevant Results ECG 06/22/2024: Normal sinus rhythm Normal ECG Echo 06/13/2024: Left Ventricle: The left ventricle is normal size. Global left ventricular systolic function is normal. The calculated Biplane EF is 65 %. Left ventricular wall thickness is increased. No regional wall motion abnormality. Unable to assess diastolic dysfunction. Concentric cardiac remodeling. Right Ventricle: The right ventricle appears normal in size. Right ventricular systolic function appears normal. Unable to assess right sided pressures due to lack of measurable tricuspid regurgitation. Left Atrium: The left atrium is normal in size. Overall Conclusions: Due to suboptimal imaging Lumason contrast was administered for opacification and better delineation of endocardial borders. No significant valvular abnormalities STRESS REPORT 06/13/24: Positive perfusion stress test for ischemia, Abnormal myocardial perfusion with soft tissue artifact, Anterolateral reversible perfusion defect abnormalities consistent with ischemia, Normal global left ventricular function with EF 63%, No transient ischemia dilatation. Negative Lexiscan ECG stress test for ischemia. Minimal Coronary calcification is seen on attenuation C EKG 06/14/2023: Normal sinus rhythm. T wave abnormality, consider inferior ischemia Abnormal ECG. When compared with ECG of 07-APR-2022 13:33, T wave inversion now evident in Inferior lead. T wave inversion less evident in Lateral Stress test 06/14/2023: Negative perfusion stress test for ischemia, Normal myocardial perfusion with soft tissue artifact, Normal global left ventricular function with EF 56%, No transient ischemia dilatation and Negative Lexiscan ECG stress test for ischemia Stress test 05/01/2022: Negative perfusion stress test for ischemia, Normal myocardial perfusion with soft tissue artifact, Normal global left ventricular function with EF 58%, No transient ischemia dilatation and No ischemic ECG changes were seen. Cardiac catheterization 07/15/2018: Normal coronary arteries. Normal left ventricular function. Stress test 06/16/2018: ??? Mildly hypocontractile left ventricle, ejection fraction 43% with regional wall motion abnormalities as described. ??? Evidence for inferolateral infarct but no evidence of ischemia. ??? This is an intermediate risk study. Stress ECG Findings: There is [address] depression in the inferior leads (II, III and aVF). ST deviation began at 3 minute(s) ending at 6 minute(s) of There were no arrhythmias during stress. Assessment/Plan Active Problems: Pre-transplant evaluation for kidney transplant Cardiovascular stress test abnormal I will proceed with cardiac catheterization with right heart catheterization and coronary angiography given abnormal stress test and preoperative status for non-cardiac surgery. I have explained to him the procedure with risks and benefits, including risks of heart attack, stroke and , and radiation injury. he understands and agrees. I will proceed from the right common femoral artery and vein access site. ANES Observed: 07/27/2024 8:19 AM Status: COMPLETED Source: [facility] REPOSITORY Patient: Evans Forte Procedure Information Date/Time: 07/27/24829 Procedures: Coronary angiography Right heart cath Location: [facility] [place] [employer] [facility] / [facility] (Cath) Providers: Mail Alvarez MD Clinical information reviewed: Tobacco Allergies Meds Med Hx Surg Hx Fam Hx Soc Hx Physical Exam Airway Mallampati: III TM distance: >3 FB Neck ROM: full Cardiovascular Rhythm: regular Rate: normal Dental Pulmonary Breath sounds clear to auscultation Abdominal Anesthesia Plan ASA 3 other (Conscious sedation.) Anesthetic plan and risks discussed with patient. Use of blood products discussed with patient who consented to blood products. Additional Equipment Requests PROGRESS Observed: 07/25/2024 8:30 AM Status: COMPLETED Source: [facility] REPOS[facility]ORY Subjective Patient ID: Evans Forte is a 54 y.o. male who presents for pre transplant evaluation. HPI Mr. 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, he has an allergy to vancomycin, last year he was getting intra peritoneal and then developed rash all over his body after few days of receiving it , no hx of severe infection, had idiopathic attack of pancreatitis 5 years ago no complications from that, he has a cat, his and granddaughter take care of it, and its up to date with its vaccines including rabies, has well water supply but with filtration system to the house, hx of diabetic foot ulcer of the right foot, is healing, minimal residual, no travel outside [place], 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 , no house plants, no known TB exposure, Past Medical History: Past Medical History: Diagnosis Date Adrenal nodule (CMS/HCC) left adrenal adenoma Anemia Anxiety Charcot foot due to diabetes mellitus (CMS/HCC) Right, s/p reconstructive surgery Chronic sinusitis COVID-19 08/2023 Diabetic foot ulcers (CMS/HCC) right Diabetic polyneuropathy (CMS/HCC) Diabetic retinopathy (CMS/HCC) ED (erectile dysfunction) ESRD (end stage renal disease) (CMS/HCC) 11/23/2022 GERD (gastroesophageal reflux disease) Glaucoma History of tobacco use Hyperlipidemia Hypertension Hypogonadism in male Hypothyroidism Insomnia Neuropathy Obesity Osteomyelitis of ankle or foot, left, acute (CMS/HCC) Pancreatitis x2 Past history of chewing tobacco use Peripheral artery disease (CMS/HCC) Proteinuria Sleep apnea Type 2 diabetes mellitus (CMS/HCC) Vitamin D deficiency Patient Active Problem List Diagnosis Adenoma of left adrenal gland History of pancreatitis Open wound of left foot Type 2 diabetes mellitus (CMS/HCC) Charcot's joint of foot Hypertension, essential Acquired hypothyroidism Hyperlipidemia Vitamin D deficiency Libido, decreased Erectile dysfunction Hypogonadism male Diabetic neuropathic arthropathy (CMS/HCC) Diabetic neuropathy (CMS/HCC) End stage renal disease (CMS/HCC) Glaucoma Hypoglycemia due to type 2 diabetes mellitus (CMS/HCC) Iron deficiency anemia 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, 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, 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 of 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 (CMS/HCC) Microalbuminuria Mild left ventricular systolic dysfunction Morbid obesity (CMS/HCC) Obstructive sleep apnea syndrome Osteomyelitis (CMS/HCC) Polyneuropathy due to type 2 diabetes mellitus (CMS/HCC) Ulcer of right foot with fat layer exposed (CMS/HCC) Pure hypercholesterolemia Disorder of adrenal gland (CMS/HCC) Type 2 diabetes mellitus with 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 edema, unspecified eye (CMS/HCC) Peripheral vascular disease (CMS/HCC) Adrenal nodule (CMS/HCC) Anxiety Insomnia Osteomyelitis of left foot (CMS/HCC) Diabetic retinopathy (CMS/HCC) Past history of chewing tobacco use Mild nonproliferative diabetic retinopathy associated with type 2 diabetes mellitus (CMS/HCC) Diabetic foot ulcers (CMS/HCC) Chronic sinusitis COVID-19 Anemia Pre-transplant evaluation for kidney transplant Cardiovascular stress test abnormal Current tobacco use Past Surgical History: Past Surgical History: Procedure Laterality Date AV FISTULA PLACEMENT 09/2023 Left arm AV fistula CARDIAC CATHETERIZATION 07/15/2018 Normal coronary arteries. Normal left ventricular function. False positive stress perfusion exam. COLONOSCOPY 09/03/2022 3 polyps status post polypectomy ranging from 6mm to 1-1/2 cm. Poor prep COLONOSCOPY 06/18/2022 Poor prep COLONOSCOPY 02/22/2024 FOOT SURGERY Right 12/05/2018 multple INSERTION / REMOVAL / REPLACEMENT VENOUS ACCESS CATHETER 09/16/2023 Hemodialysis catheter PERITONEAL CATHETER INSERTION 11/06/2022 PERITONEAL CATHETER REMOVAL 10/13/2023 TOE AMPUTATION Left Left lesser toe WOUND DEBRIDEMENT Right 12/24/2023 WOUND DEBRIDEMENT WITH APPLICATION OF BILAYER SKIN GRAFT RIGHT WOUND DEBRIDEMENT Right 01/24/2024 Ulceration to the right heel and 1st MPJ WOUND DEBRIDEMENT Right 02/29/2024 Ulceration to the right heel and 1st MPJ WOUND DEBRIDEMENT Right 03/30/2024 Ulceration to the right heel and 1st MPJ WOUND DEBRIDEMENT Right 05/04/2024 Ulceration to the right heel and 1st MPJ WOUND DEBRIDEMENT Right 05/18/2024 Ulceration to the right heel and 1st MPJ WOUND DEBRIDEMENT Right 06/08/2024 plantar medial right heel Medications: Current Outpatient Medications on File Prior to Visit Medication Sig Dispense Refill anastrozole (Arimidex) 1 mg chemo tablet Take 1 tablet (1 mg total) by mouth in the morning Swallow whole with a drink of water. 90 tablet 3 aspirin 81 mg chewable tablet Chew 1 tablet (81 mg) in the morning. 90 tablet 3 atorvastatin (Lipitor) 20 mg tablet Take 20 mg by mouth in the morning. b complex 0.4 mg tablet Take 1 tablet by mouth in the morning and at bedtime. calcitriol (Rocaltrol) 0.25 mcg capsule Take 0.25 mcg by mouth in the morning. calcium acetate (Phoslo) 667 mg capsule Take 667 mg by mouth in the morning. carvedilol (Coreg) 12.5 mg tablet Take 12.5 mg by mouth with breakfast and with evening meal. cholecalciferol (D3-5) 5,000 Units tablet Take 1 tablet by mouth in the morning. furosemide (Lasix) 80 mg tablet Take 80 mg by mouth two times daily. insulin glargine (Lantus) 100 unit/mL injection vial Inject 60 Units under the skin in the morning. insulin lispro (HUMALOG KWIKPEN INSULIN SUBQ) Inject 10 Units under the skin with breakfast, with lunch, and with evening meal. levothyroxine (Synthroid, Levoxyl) 100 mcg tablet Take 100 mcg by mouth before breakfast. polyethylene glycol (GoLYTELY) 236-22.74-6.74 -5.86 gram solution For day 1 of 2 day prep (Patient not taking: Reported on 07/11/2024) 4000 mL 0 testosterone 1.62 % (20.25 mg/1.25 gram) gel in packet APPLY 1 PACKET DIRECTED ONCE DAILY (Patient taking differently: Apply 1 Application topically in the morning.) 37.5 g 0 [DISCONTINUED] polyethylene glycol (GoLYTELY) 236-22.74-6.74 -5.86 gram solution For day 2 of 2 day prep 4000 mL 0 [DISCONTINUED] tadalafil (Cialis) 20 mg tablet Take 1 tablet (20 mg) by mouth if needed each day for erectile dysfunction. (Patient not taking: Reported on 07/19/2024) 6 tablet 11 No current facility-administered medications on file prior to visit. Social History: Social History Socioeconomic History Marital status: Spouse name: None Number of children: None Years of education: None Highest education level: None Occupational History None Tobacco Use Smoking status: Never Smokeless tobacco: Current Types: Chew Last attempt to quit: 07/2022 Tobacco comments: Check status Vaping Use Vaping status: Never Used Substance and Sexual Activity Alcohol use: Not Currently Comment: Previous occasional use - rare / once per year Drug use: Not Currently Sexual activity: Defer Partners: Female Other Topics Concern None Social History Narrative None Social Determinants of Health Financial Resource Strain: Not on file Food Insecurity: No Food Insecurity (08/09/2023) [facility] Hunger Screening Within the past 12 months we worried whether our food would run out before we got money to buy more.: Never True Within the past 12 months the food we bought just didn't last and we didn't have money to get more.: Never True Transportation Needs: Not on file Physical Activity: Not on file Stress: Not on file Social Connections: Not on file Intimate Partner Violence: Unknown (10/28/2023) [place] Safety & Environment Fear of Current or Ex-Partner: Not on file Emotionally Abused: Not on file Physically Abused: Not on file Sexually Abused: Not on file Physically or Sexually Abused: Not on file Housing Stability: Not on file Family History: Family History Problem Relation Name Age of Onset Breast cancer Mother age 53, METS to brain Heart disease Father Heart attack Father age 26 No Known Problems Sister half-sister Crohn's disease Daughter perforated bowel Allergies: Allergies Allergen Reactions Adhesive Tape-Silicones Rash Latex Rash If on for long periods of time Vancomycin Hives Other reaction(s): Unknown Adhesive Rash Haloperidol Anxiety Kintyre Oil GI intolerance Runny nose, watery eyes Review of Systems Negative except what's mentioned in HPI Objective BP 138/79 Pulse 77 Temp 36.8 ???C (98.3 ???F) (Oral) Wt (!) 143 kg (315 lb) SpO2 97% BMI 40.44 kg/m??? Physical Exam General: alert oriented not in distress HEENT: supple Chest: clear lungs, no added sounds CVS: normal s1 s2 no murmurs Abdomen: soft lax Neurology: orientedx3, non focal Ext: left near the wrist AV fistula , positive thrill, two small ulcer, very superficial , no drainage, some callosities , image as below Labs: Serology reviewed as below Assessment/Plan Problem List Items Addressed This Visit Genitourinary End stage renal disease (CMS/HCC) Musculoskeletal Diabetic foot ulcers (CMS/HCC) Other Pre-transplant evaluation for kidney transplant - Primary Other Visit Diagnoses Immunization counseling Mr. Iverson is being evaluated for possible renal transplant, the following serology has been reviewed Negative: Quantiferon TB, HIV, hepatitis C antibodies, hepatitis B surface antigen, hepatitis B core antibodies, hepatitis B surface antibodies , mumps IgG, CMV IgG, Positive: measles, rubella, and varicella IgG, EBV VCA IgG Patient needs the following vaccines Tdap , hepatitis B series vaccines his titers are below target, and prevnar 20 We had a prolonged discussion about safe living after transplant, we went over the instructions listed below. 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 NOTE: All vaccines should ideally be given prior to transplantation. Live vaccines are contraindicated following transplantation. If non-live vaccines are given after transplantation this should occur 6 months after transplantation while on stable immunosuppression to maximize immune system response. Vaccinations Immunization History Administered Date(s) Administered Influenza, High Dose Seasonal, Preservative Free 06/17/2019 Influenza, injectable, quadrivalent, preservative free 06/18/2019, 11/05/2022 Influenza, seasonal,quadrivalent, preservative free 06/26/2013, 06/29/2014 Billie Sars-Cov-2 Vaccination 01/22/2021, 01/23/2021, 08/11/2021, 08/12/2021 Zoster, Recombinant 11/13/2022 -- Hepatitis B: repeat vaccine series -- Influenza vaccine: up to date -- Tdap vaccine: due -- Pneumococcal 20V vaccine : due -- Shingrix: completed -- COVID-19: due -- VZV: immune -- MMR: immune to measles and rubella Stay safe after a transplant : It's important to stay safe and prevent infections after getting a transplant, here are some guidance to help lower your chances of getting an infection: How to prevent contact illness --- Sickness What to Do: Wash your hands after you: - Touch or clean up pets/animals - Before you eat - Before and after you touch a wound Use bleach wipes to clean the house if someone has diarrhea Clean cuts and abrasions right away Wear gloves if you changing diapers and wash hands right away when you're done What not to do: X do not go barefoot outside Prevent airway infections: What to Do: Avoid close contact with anyone sick with respiratory illness , if must have a contact both of you should wear a surgical mask Avoid crowded places , kylee in fall and winter seasons, if must be in crowded places wear a mask Avoid jobs that puts you at risk for infections such as prisons, homeless shelters, construction, animal care settings, landscaping, gardening. Talk to your team if you cannot avoid these jobs/places What not to do : X do not vape or smoke X do not go near soil mulch, birds dropping, chicken coops or caves (the might have some mold that could cause you an infection that wouldn't happen in someone who didn't get transplanted) X do not go near construction sites, places with a lot of dust such as home remodeling X do not clean roof gutters Water safety: What to do: Boil water before using it or use bottled water instead Clean up standing water quickly to avoid mold Use bottled water when you travel for brushing your teeth or drinking What not to do: X Do not drink water from lakes, [place] or garden hose X Do not go in lakes, public pools, or hot tubs Food safety: What not to do: Do not drink or eat unpasteurized milk or diary products Do not eat raw or undercooked eggs, meat, poultry and fish Do not eat food from someone who recently had diarrhea Animal and pets: What to do : Avoid touching reptiles, chicks, duckling, young cats Avoid animal bites and scratches Wash your hands after handling pets/animals What not to do: Do not clean bird cages, bird feeder, aquariums, litter boxes, or handle animal feces, if cannot avoid it wear gloves and a mask Do not hold a pet that just got a live vaccine Do not get a new pets, till at least 6-12 months from transplant with stable medication regimen Safe sexual activity: What to do: Always use latex condom during sex Leslie Morel MD Infectious diseases OFFICE VISIT Observed: 07/25/2024 8:30 AM Status: COMPLETED Source: [facility] REPOSITORY [id number] [place] 0 1970 [facility] Provider Department Center 07/25/2024 LESLIE GUZMÁN [facility] INF [facility] Heal Family History Problem Relation Age of Onset Breast cancer Mother Comments: age 53, METS to brain Heart disease Father Heart attack Father Comments: age 26 No Known Problems Sister Comments: half-sister Crohn's disease Daughter Comments: perforated bowel Family Status - Relation Status Age at Mother Father Sister Daughter Level of Service:66969 [place] OFFICE/OUTPATIENT [facility] 30 MINUTES DOCUMENTATION Observed: 07/14/2024 12:00 AM Status: COMPLETED Source: [facility] REPOSITORY [id number] [place] 0 1970 [facility] Provider Department Center 07/14/2024 [id number] CINTRON None Family History Problem Relation Age of Onset Breast cancer Mother Comments: age 53, METS to brain Heart disease Father Heart attack Father Comments: age 26 No Known Problems Sister Comments: half-sister Crohn's disease Daughter Comments: perforated bowel Family Status - Relation Status Age at Mother Father Sister Daughter PROGRESS Observed: 07/13/2024 8:31 AM Status: COMPLETED Source: [facility] REPOSITORY Patient returned call to . Discussed with patient need for additional testing recommended from CT abdomen and pelvis performed 07/11/24. Informed patient evaluating surgeon would like patient to obtain PET CT. Patient states okay to place order at [facility]. Order placed and mailed to patient. Melinda Hidalgo RN 36 Observed: 07/12/2024 3:44 PM Status: COMPLETED Source: [facility] REPOSITORY TC contacted patient regardi ng CT results. No answer. Left voicemail. Melinda Hidalgo RN PROGRESS Observed: 07/11/2024 11:34 AM Status: COMPLETED Source: [facility] REPOSITORY I saw the patient in clinic. They understood all the financial responsibilities associated with a kidney transplant and the expense of prescriptions after transplant. This includes all co-pays, deductibles and out of pocket expenses. The patient was instructed to contact me of any insurance or financial changes. My card was given to them for direct contact. The patient was given copies of all information and patient financial responsibility forms they signed. HEPATITIS A ANTIBODY, IGM Collected: 11:22 AM Status: UNK Source: [facility] REPOSITORY TYPE CODE TESTS RESULT OUT OF RANGE REFERENCE UNITS LAB [id number] HEPATITIS A VIRUS IGM AB PRESENCE IN SER/PLAS Nonreactive Nonreactive Performed By: #### [id number] ## ## [facility] [address] [place] [address] B-TYPE NATRIURETIC PEPTIDE Collected: 07/11/2024 11:2 2 AM Status: UNK Source: [facility] REPOSITORY TYPE CODE TESTS RESULT OUT OF RANGE REFERENCE UNITS LAB [id number] NATRIURETIC PEPTIDE B (PG/ML) IN SER/PLAS 43 0-100 pg/mL Performed By: #### [id number] ## ## [facility] [address] [place] [address] SINGLE ANTIGEN CLASS II Collected: 01/2024 11:22 AM Status: UNK Source: [facility] REPOSITORY TYPE CODE TESTS RESULT OUT OF RANGE REFERENCE UNITS LAB [id number] CLASS II TESTED DATE [id number] LAB [id number] CPRA 12 LAB [id number] SINGLE ANTIGEN CLASS 2 TEST METHOD Class II Single Antigen Result Comment: Class II Ant igen Microbeads LAB [id number] SIGNED BY Signed by Delano Nuno CHT([facility]) HEATHER(ASCP), [facility] [id number] CLASS II LOW RISK AB DRw:53 Performed By: #### [id number] # ### [facility] TISSUE TYPING (HISTOTRAC) [address] [place] [address] PANEL REACTIVE ANTIBODY Collected: 01/2024 11:22 AM Status: UNK Source: [facility] REPOSITORY TYPE CODE TESTS RESULT OUT OF RANGE REFERENCE UNITS LAB 293 HOLD SPECIMEN Hold for add-ons. Result Comment: Auto resulte d. Performed By: #### [id number] # ### [facility] TISSUE TYPING (HISTOTRAC) [address] HEPATITIS C ANTIBODY Collected: 11:22 AM Status: UNK Source: [facility] REPOSITORY TYPE CODE TESTS RESULT OUT OF RANGE REFERENCE UNITS LAB [id number] HEPATITIS C VIRUS AB PRESENCE IN SERUM Nonreactive Nonreactive Performed By: #### [id number] ## ## [facility] [address] [place] [address] HEPATITIS B SURFACE ANTIGEN Collected: 07/11/2024 11:22 AM Status: UNK Source: [facility] REPOSITORY TYPE CODE TESTS RESULT OUT OF RANGE REFERENCE UNITS LAB [id number] HEPATITIS B VIRUS SURFACE AG PRESENCE IN SERUM Nonreactive Nonreactive Performed By: #### [id number] ## ## [facility] [address] [place] [address] TYPE AND SCREEN Collected: 11:22 AM Status: UNK Source: [facility] REPOSITORY TYPE CODE TESTS RESULT OUT OF RANGE REFERENCE UNITS LAB [id number] ABO GROUP (TYPE) IN BLOOD A LAB [id number] RH TYPE IN BLOOD POS LAB [id number] AB SCREEN NEG Performed By: #### [id number] ## ## [facility] BLOOD BANK , PSA, SCREENING Collected: 11:22 AM Status: UNK Source: [facility] REPOSITORY TYPE CODE TESTS RESULT OUT OF RANGE REFERENCE UNITS LAB [id number] PROSTATE SPECIFIC AG (NG/ML) IN SER/PLAS 1.4 0.4-4 ng/mL Performed By: #### [id number] ## ## [facility] [address] [place] [address] PROTIME-INR Collected: 11:22 AM Status: UNK Source: [facility] REPOSITORY TYPE CODE TESTS RESULT OUT OF RANGE REFERENCE UNITS LAB [id number] PROTHROMBIN TIME (PT) IN PPP BY COAGULATION ASSAY 14.0 12.3-14.8 Seconds LAB [id number] INR IN PPP BY COAGULATION ASSAY 1.08 0.90-1.10 NA Result Comment: [facility] RECOMM ENDED INR FOR WARFARIN THERAPY CONDITION INR PROPHYLAXIS OF VENOUS THROMBOSIS 2-3 (HIGH-RISK SURGERY) TREATMENT OF VENOUS THROMBOSIS 2-3 TREATMENT OF PULMONARY EMBOLISM 2-3 PREVENTION OF SYSTEMIC EMBOLISM: 2-3 ACUTE MYOCARDIAL INFARCTION TISSUE HEART VALVES VALVULAR HEART DISEASE ATRIAL FIBRILLATION RECURRENT SYSTEMIC EMBOLISM MECHANICAL HEART VALVE 2.5-3.5 FROM: ORAL ANTICOAGULANTS. MECHANISM OF ACTION, CLINICAL EFFECTIVENESS, AND OPTIMAL THERAPEUTIC RANGE. CHEST 1995;108:231S-246S. Performed By: #### [id number] ## ## [facility] [address] [place] [address] HLA ABC CLASS I TYPING Collected: 07/11 11:22 AM Status: UNK Source: [facility] REPOSITORY TYPE CODE TESTS RESULT OUT OF RANGE REFERENCE UNITS LAB [id number] HLA ABC TESTED DATE [id number] LAB [id number] A*-1 2 LAB [id number] A*-2 25 LAB [id number] B*-1 44 LAB [id number] B*-2 57 LAB [id number] BW*-1 4 LAB [id number] C*-1 5 LAB [id number] C*-2 6 LAB [id number] HLA ABC CLASS I TYPING TEST METHOD Class I typing by PCR-SSOP [facility] LAB [id number] SIGNED BY Signed by Delano Nuno CHT([facility]) HEATHER([facility]), [facility] Trans[facility] Performed By: #### [id number] # ### [facility] TISSUE TYPING (HISTOTRAC) [address] HEPATITIS B SURFACE ANTIBODY QUANT Collected: 07/11/2024 11:22 AM Status: UNK Source: [facility] REPOSITORY TYPE CODE TESTS RESULT OUT OF RANGE REFERENCE UNITS LAB 930 HEPATITIS B VIRUS SURFACE AB (MIU/ML) IN SERUM 1.48 mIU/mL Result Comment: INTERPRETATI ON: NONREACTIVE <8.00 mIU/mL INDETERMINATE 8.00 - 12.00 mIU/mL REACTIVE >12 mIU/mL Performed By: #### [id number] # ### [facility] ([facility]) [address] [place] [address] CLASS II TYPING Collected: 07/11 11:22 AM Status: UNK Source: [facility] REPOSITORY TYPE CODE TESTS RESULT OUT OF RANGE REFERENCE UNITS LAB [id number] HLA DR TESTED DATE LAB [id number] DRB1*-1 1 LAB [id number] DRB1*-2 7 LAB [id number] DRB4*-2 53N LAB [id number] DQA1*-1 01 LAB [id number] DQA1*-2 02 LAB [id number] DQB1*-1 9 LAB [id number] DQB1*-2 5 LAB [id number] DPB1*-1 04:01 LAB [id number] DPB1*-2 04:[id number] CLASS II TYPING TEST METHOD Class II typing by PCR-SSOP [facility] LAB [id number] SIGNED BY Signed by Delano Nuno CHT([facility]) HEATHER([facility]), [facility] [id number] HLA COMMENTS Due to availabl e space, 53N represents the DRB4*01:03:01:02N null allele. Performed By: #### [id number] # ### [facility] TISSUE TYPING (HISTOTRAC) [address] SINGLE ANTIGEN CLASS I Collected: 07/11 11:22 AM Status: UNK Source: [facility] REPOSITORY TYPE CODE TESTS RESULT OUT OF RANGE REFERENCE UNITS LAB [id number] CLASS I TESTED DATE LAB [id number] CPRA 12 LAB [id number] SINGLE ANTIGEN CLASS 1 TEST METHOD Class I Single Antigen LAB [id number] SIGNED BY Signed by Delano Nuno CHT([facility]) MT(ASCP), [facility] Result Comment: Class I Anti gen [facility] LAB [id number] CLASS I SPECIFICITY AB A:11 B:76 LAB [id number] CLASS I LOW RISK AB A:23 29 B:8 Performed By: #### [id number] # ### [facility] TISSUE TYPING (HISTOTRAC) [address] [place] [address] [facility] HEPATITIS B CORE ANTIBODY, IGM Collecte d: 07/11/2024 11:22 AM Status: UNK Source: [facility] REPOSITORY TYPE CODE TESTS RESULT OUT OF RANGE REFERENCE UNITS LAB [id number] HEPATITIS B VIRUS CORE IGM AB PRESENCE IN SER/PLAS BY IMMUNOASSY Negative Negative Result Comment: INTERPRETIVE INFORMATION: Hepatitis B Core Ab, IgM This assay should not be used for blood donor screening, associated re-entry protocols, or for screening Human Cells, Tissues and Cellular and Tissue-Based Products (HCT/P). Performed By: [facility] [address] [place] [address] Employment Specialist/Program Manager: Aristeo Salgado MD, PhD CLIA Number: [id number] Performed By: #### [id number] ## ## [facility] ([facility]) [address] [place] [address] HEMOGLOBIN A1C Collected: 07/11/2024 11:22 AM Status : UNK Source: [facility] REPOSITORY TYPE CODE TESTS RESULT OUT OF RANGE REFERENCE UNITS LAB [id number] HEMOGLOBIN A1C/HEMOGLOBIN TOTAL IN BLOOD 7.4 High 4.0-6.0 % LAB 294 ESTIMATED AVERAGE GLUCOSE (MG/DL) IN BLOOD 166 mg/dL Performed By: #### [id number] ### # [facility] [address] [place] [address] TESTOSTERONE, FREE AND TOTAL , AND SHBG Collected: 07/11/2024 11:22 AM Status: UNK Source: [facility] REPOSITORY TYPE CODE TESTS RESULT OUT OF RANGE REFERENCE UNITS LAB [id number] TESTOSTERONE (NG/DL) IN SER/PLAS 408 193-740 ng/dL LAB [id number] SEX HORMONE BINDING GLOBULIN (NMOL/L) IN SER/PLAS 14 Low 19-76 nmol/L LAB [id number] TESTOSTERONE FREE (NG/ML) IN SER/PLAS 122.7 47.0-244.0 pg/mL Result Comment: The concentr ation of free testosterone is derived from a mathematical expression based on the constant for the binding of testosterone to albumin and/or sex hormone binding globulin. Test Performed by [facility] [place] [address] - Released 07/11/2024 18:27 Performed By: #### [id number] # ### [facility] [address] [place] [address] HEPATITIS B CORE ANTIBODY, TOTAL Collected: 07/11/2024 11:22 AM Status: UNK Source: [facility] REPOSITORY TYPE CODE TESTS RESULT OUT OF RANGE REFERENCE UNITS LAB [id number] HEPATITIS B VIRUS CORE AB (PRESENCE) IN SER/PLAS BY IMM Nonreactive Nonreactive Performed By: #### [id number] # ### [facility] [address] [place] [address] HIV COMBO 4G Collected: 11:22 AM Status: UNK Source: [facility] REPOSITORY TYPE CODE TESTS RESULT OUT OF RANGE REFERENCE UNITS LAB 1388 HIV COMBO 4G Negative Negative Performed By: #### [id number] # ### [facility] [address] [place] [address] BILIRUBIN, DIRECT Collected: 11:22 AM Status: UNK Source: [facility] REPOSITORY TYPE CODE TESTS RESULT OUT OF RANGE REFERENCE UNITS LAB [id number] BILIRUBIN DIRECT (MG/DL) IN SER/PLAS 0.1 0-0.2 mg/dL Performed By: #### [id number] ### # [facility] [address] [place] [address] LIPID PANEL Collected: 07/11/2024 11:22 AM Status: U NK Source: [facility] REPOSITORY TYPE CODE TESTS RESULT OUT OF RANGE REFERENCE UNITS LAB [id number] TRIGLYCERIDE (MG/DL) IN SER/PLAS 237 High 40-149 mg/dL Result Comment: TRIGLYCERIDE REFERENCE RANGE: 20 YEARS AND OLDER CARDIOVASCULAR RISK LESS THAN 150 mg/dL LOW RISK 150 TO 199 mg/dL BORDERLINE RISK 200 mg/dL AND GREATER HIGH RISK LAB [id number] CHOLESTEROL (MG/DL) IN SER/PLAS 186 120-200 mg/dL LAB [id number] CHOLESTEROL IN LDL (MG/DL) IN SERUM OR PLASMA BY CALCULATION 105 0-160 mg/dL LAB [id number] CHOLESTEROL IN HDL (MG/DL) IN SER/PLAS 34 23-92 mg/dL LAB [id number] NON HDL CHOL. (LDL+VLDL) 152 NA LAB [id number] TOTAL VLDL-C 47 High 0-40 mg/dL LAB 2481 CHOL/HDL 5.5 mg/dL Performed By: #### [id number] ### # [facility] [address] [place] [address] COMPREHENSIVE METABOLIC PANEL Collected: 07/11/2024 1 1:22 AM Status: UNK Source: [facility] REPOSITORY TYPE CODE TESTS RESULT OUT OF RANGE REFERENCE UNITS LAB [id number] SODIUM (MMOL/L) IN SER/PLAS 139 136-145 mmol/L LAB [id number] POTASSIUM (MMOL/ L) IN SER/PLAS 4.1 3.5-5.1 mmol/L LAB [id number] CHLORIDE (MMOL/L ) IN SER/PLAS 98 98-107 mmol/L LAB [id number] CARBON DIOXIDE, TOTAL (MMOL/L) IN SER/PLAS 31 21-31 mmol/L LAB [id number] ANION GAP IN SER/PLAS 14 7-20 mmol/L LAB [id number] UREA NITROGEN (MG/DL) IN SER/PLAS 53 High 7-25 mg/dL LAB [id number] CREATININE (MG/D L) IN SER/PLAS 7.27 High 0.70-1.30 mg/dL LAB [id number] UREA NITROGEN/CREATININ E (MASS RATIO) IN SER/PLAS 7.3 NA LAB [id number] GLUCOSE (MG/DL) IN SER/PLAS 216 High 70-100 mg/dL LAB [id number] CALCIUM (MG/DL) IN SER/PLAS 9.4 8.6-10.3 mg/dL LAB [id number] ASPARTATE AMINOTRANSFERASE (SGOT) (U/L) IN SER/PLAS 8 Low 13-39 U/L LAB [id number] ALANINE AMINOTRANSFERASE (SGPT) (U/L) IN SER/PLAS 12 7-52 U/L LAB [id number] ALKALINE PHOSPHATASE (U/L) IN SER/PLAS 115 High 34-104 U/L LAB [id number] PROTEIN (G/DL) I N SER/PLAS 7.6 6.0-8.3 g/dL LAB [id number] ALBUMIN (G/DL) I N SER/PLAS 4.2 3.5-5.7 g/dL LAB [id number] BILIRUBIN TOTAL (MG/DL) IN SER/PLAS 0.5 0.3-1.0 mg/dL LAB [id number] GLOMERULAR FILTRATION RATE ML/MIN/1.73 SQ M.PREDICTED 8.3 Low >60.0 mL/min /1.73m *2 Result Comment: The [facility]???s estimated glomerular filtration rate (eGFR) will no longer include consideration of race in its calculation. The National Kidney Foundation???s eGFR Task Force developed new recommendations for the estimation of the glomerular filtration rate in the [place] They recommend immediate implementation of the new equation refit without the race variable in all laboratories because the calculation does not include race. In addition to not including race in the calculation and reporting, it included diversity in its development, and has acceptable performance characteristics and potential consequences that do not disproportionately affect any one group of individuals. Performed By: #### [id number] ### # [facility] [address] [place] [address] CBC WITH AUTO DIFFERENTIAL Collected: 09/10/2023 11:22 AM Status: UNK Source: [facility] REPOSITORY TYPE CODE TESTS RESULT OUT OF RANGE REFERENCE UNITS LAB [id number] LEUKOCYTES(10*3/ UL) IN BLOOD BY AUTOMATED COUNT 8.33 4.00-10.60 10*3/uL LAB [id number] ERYTHROCYTES (10*6/UL) IN BLOOD BY AUTOMATED COUNT 3.95 Low 4.20-5.70 10*6/uL LAB [id number] HEMOGLOBIN (G/DL) IN BLOOD 11.9 Low 13.0-17.0 g/dL LAB 8275592 HEMATOCRIT (%) IN BLOOD BY AUTOMATED COUNT 36.3 Low 39.0-55.0 % LAB [id number] ERYTHROCYTE MEAN CORPUSCULAR VOLUME (FL) BY AUTOMATED COUNT 91.9 82.0-98.0 fL LAB [id number] ERYTHROCYTE MEAN CORPUSCULAR HEMOGLOBIN (PG) BY AUTOMATED COUNT 30.1 27.0-33.0 pg LAB [id number] ERYTHROCYTE MEAN CORPUSCULAR HEMOGLOBIN CONCENTRATION (G/DL) BY AUTOMATED 32.8 32.0-35.0 g/dL LAB [id number] ERYTHROCYTE DISTRIBUTION WIDTH (RATIO) BY AUTOMATED COUNT 14.6 11.5-15.0 % LAB [id number] NEUTROPHILS/100 LEUKOCYTES IN BLOOD BY AUTOMATED COUNT 58.1 40.0-72.0 % LAB [id number] LYMPHOCYTES/100 LEUKOCYTES IN BLOOD BY AUTOMATED COUNT 26.5 20.0-45.0 % LAB [id number] MONOCYTES/100 LEUKOCYTES IN BLOOD BY AUTOMATED COUNT 9.8 5.0-12.0 % LAB [id number] EOSINOPHILS/100 LEUKOCYTES IN BLOOD BY AUTOMATED COUNT 3.6 0.0-6.0 % LAB [id number] BASOPHILS/100 LEUKOCYTES IN BLOOD BY AUTOMATED COUNT 1.0 0.0-1.0 % LAB [id number] NEUTROPHILS (10*3/UL) IN BLOOD BY AUTOMATED COUNT 4.84 1.60-7.60 10*3/uL LAB [id number] LYMPHOCYTES (10*3/UL) IN BLOOD BY AUTOMATED COUNT 2.21 1.20-4.00 10*3/uL LAB [id number] MONOCYTES (10*3/UL) IN BLOOD BY AUTOMATED COUNT 0.82 0.10-1.00 10*3/uL LAB [id number] EOSINOPHILS (10*3/UL) IN BLOOD BY AUTOMATED COUNT 0.30 0.00-0.50 10*3/uL LAB [id number] BASOPHILS (10*3/UL) IN BLOOD BY AUTOMATED COUNT 0.08 0.00-0.20 10*3/uL LAB [id number] PLATELETS (10*3/UL) IN BLOOD AUTOMATED COUNT 331 150-400 10*3/uL LAB 254 NRBC (PER 100 WBCS) BY AUTOMATED COUNT 0.0 0 % LAB 1767 IMMATURE GRANULOCYTES/100 LEUKOCYTES IN BLOOD BY AUTOMATED COUNT 1.0 0.0-1.0 % LAB 1768 IMMATURE GRANULOCYTES (10*3/UL) IN BLOOD BY AUTOMATED COUNT 0.08 0.00-0.20 10*3/uL Performed By: #### [id number] # ### [facility] [address] [place] [address] PROGRESS Observed: 07/11/2024 8:00 AM Status: COMPLETED Source: [facility] REPOSITORY Identifying Information Name: Evans Forte : 1970 Assessment date: 07/11/2024 Transplant type: Kidney Transplant Evaluation - 10/12/2019 Primary language: Estonian Druze/spirituality: Oriental Orthodox People present at assessment: sister Caryn Carroll Do you have any anabaptist, ethical or personal objections to accepting blood products, surgery and/or transplant? No Citizenship Where were you born? In the [place] in [facility] Where do you currently live or are staying? [facility] Is this greater than 3-4 hours from [facility]? No. 1 Hour Family Background and Supportive Relationships Mother: COD: Breast Cancer with mets to brain. Father: COD: Heart attack Siblings: 1 sister: Caryn Healthy Children: Biological Number of children, living or (UNOS question): 1 Names, age, health status, relationship, address: Teresa , healthy, [place], daughter. Marital/relationship status: for 30 years Household composition: Patient, , step-grandaughter. Are there any current or past significant life changes or traumatic events? No Support / Caregiver Plans Who will be your primary caregiver? 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 Who will be your secondary caregiver(s)? sibling Contact #: Caryn [phone] Health status & availability: Healthy, doesn't work, able to drive. Other important supportive relationships: If several caregivers are involved, will they be able to cooperate with each other? No concerns. How comfortable are you asking for and/or receiving help? Im not too comfortable. Have you been or are you currently a caregiver for someone else (i.e. children, spouse, parents)? No Are there any ongoing family disagreements or life issues that may be impacted by the transplant? No Does anyone in your household or caregiving team use tobacco, or abuse alcohol or illicit substances? No Advance Directives Do you have an advance directive? G No, No Info Wanted Do you have a DPOA for healthcare or finances? no A living will? no Who is the proxy? Education given: Yes Information mailed: No Education / Employment / Financial Situation Highest education level: Some College Are you still working? No. Reason: Disabled. 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 Date of last employment: April 2022 What are your thoughts about returning to work after transplant? Some form a of work. I have a [employer] drivers license. Disability Are you on any form of disability? yes What type? SSDI What is the status? active Financial Status Income per month: $4500 Income source: SSDI and working. Do you have any current financial concerns? No Is current income adequate to meet monthly needs and current medications? yes Would you be interested in fundraising information? no Insurance / Resources Payer/Plan Subscriber Name Rel Member # Group # [facility] - U* [employer] Self [id number] 125 [address] [address] [facility] MED* [employer] Self [id number] [address] [address] Are you aware of a coordination of benefits with your insurance and Medicare (if applicable)? no- mailing Medicare and ESRD info to patient. Are you receiving assistance through [facility] Program: No Medication Coverage Do you have prescription coverage: Yes What are your medication costs for generic, preferred brand, and non-preferred brand medications? $Nothing Indicate medication costs after transplant: Educated How will you pay for these medications after transplant? Insurance [place] Benefits Have you served in the ? No Understanding of Medical Situation What is your primary diagnosis? DM for 29 years. When did you become aware of your diagnosis? 10 years ago. Do you have any other health issues? yes If yes, how do they impact you? HTN, DM- controled with medications. DM foot ulcers. Recently IND. A1C 6.3 Dialysis center, schedule, type, and start date (if applicable): Dialysis History Start End Type Center Comments 03/06/2023 Hemo 11/23/2022 03/06/2023 Peritoneal [facility]. Dialysis Center Information [facility]. Address: [facility] [address], [address] [place] [address] [place]. Dialysis Schedule: MWF, 5:30AM, 4H15M, a few L Treatment Compliance / Adherence How do you manage your medications now? Memory and Other From the bottle. Do you have any difficulties in getting or taking your medications? Since [facility] shut down they are very busy. Do you know what you take and what they are for?: Yes Have you ever changed the way you take a medication without talking to the doctor? no Do you adhere to your diet? Yes HD diet, protein and veggies. Do you adhere to your fluid restrictions? Yes Less than 1L a day. Do you adhere to your dialysis attendence/schedule? No Do you have a PCP or other medical provider you see regularly in the community? yes [facility]ney Dr. Amezquita. What has your relationship been like with your medical providers? Good relationships. Do you have chronic pain? No. Knowledge & Understanding of Transplant Process Do you know anyone else that has had a transplant? no Orientation: 3 years ago. Tell me a little about what you understand about transplant. Eating right and staying healthy, no tobacco, exercising, medications, follow up appointment, blood work. What do you know about the risks of transplant? Kidney failure, HD with the new kidney, rejection, infection. What is your biggest concern? Really I don't have a big concern, Im just anxious for it to be over with. What do you think your support system???s main concern is about you getting a transplant? SOONER THE BETTER. Were the psychosocial risks of transplant reviewed: yes Willingness / Desire for Treatment (Transplant) Do you want to proceed with a transplant? yes What are your expectations for transplant? Not to do HD and to feel [place], once you get the year in and I can start traveling and doing some things. How did you start thinking of transplant as a treatment choice? Family doctor. If previously denied listing, why were you denied? Please describe that experience and how it is different now. Not listed anywhere, never denied. Functional Ability / Personal Snf Environment Living situation: Private Home Indicate number of steps and whether bed and bath are on the same level: a few steps to enter, ranch. Do you have any pets that live in your home? Yes Cat Assistive devices in the home: walker tucked away. Do you have any home health care agencies you use? Yes for wound care. Functional Ability What physical changes/declines/improvements have you seen in the last six months? Improvements: lost weight 60 lbs and I feel better. More energy. Please describe your greatest physical limitation(s): None Ambulation: Unassisted 1 mile Vision: Mild/moderate impairment - uses visual aids Reading glasses Hearing: No hearing impairment Transportation: Independent - drives self Sleep: No problems with sleep Hygiene: Able to bathe self, groom or Carries out hygiene routine on a regular basis Exercise: Participates routinely in an exercise regimen Household tasks -are you independent with: Cooking, Cleaning/Laundry, Yardwork, or Shopping (grocery and personal) Hobbies / Interests What are your hobbies/interests (pastimes and stress relievers)? Motorcycles and guns. Do you have any activities that you???re unable to do now, that you hope to return to after transplant? yes Traveling Cognitive Function / Health Literacy How do you best learn new information? Mixture. Do you have any history of developmental delays/learning differences/special education/OT/PT/speech therapy? no Do you have any current or past problems with a medical issue (e.g. CVA, TBI, encephalopathy) that has impacted your cognitive function? no Have you been diagnosed with Alzheimer's or dementia? No Have you noticed any problems with or changes in: Your attention span/concentration level for conversations, TV, reading, etc.? no Episodes of disorientation/getting lost while driving or at a store? no Problems with safety risks/concerns (e.g. leaving the stove on or a candle burning, forgetting to lock the front door, not preparing food appropriately, etc.)? no Your ability to manage your medical regimen? no Mental Health Indicate mental status: Alert Indicate orientation: Person Place Time Situation Indicate appearance: Appears stated age Well groomed Indicate affect: Within normal limits Easily engaged in conversation Cooperative Indicate cognitive function: Attentive: yes Memory problems: No Thought Processes Organized? Yes Do you have a history of: None Has anyone ever physically, emotionally, or sexually abused you? no Have you ever attempted suicide or thought about harming yourself or others? No. Have you ever been hospitalized in a psychiatric hospital? No. Do you currently or have you ever seen a therapist/counselor/psychiatrist? No. Have you used medications for mental health issues, sleep and/or pain now or in the past? No. Generalized Anxiety Disorder Questionnaire DAVE-2 Over the last two weeks how often have you been bothered by the following problems? 1. Feeling nervous, anxious or on edge. 0 - Not at all 2. Not being able to stop or control worrying. 0 - Not at all Total score: Add responses to both questions: 0 *If the score is ? 3, refer for further evaluation (or follow with the other five items of the DAVE- 7 to grade symptom severity) Patient Health Questionnaire (PHQ 2) -Depression Scale During the past month, have you often been bothered by the following problems? Feeling down, depressed or hopeless? 0 - Not at all Little interest or pleasure in doing things? 0 - Not at all Total score: Add responses to both questions : 0 Score range is from 3 to 6. A score ?3 is considered a positive response for depression. Coping What are the other stressors in your life? works and I dont. What helps you cope when you are feeling stressed? Go for a drive. Substance Abuse Tobacco: Chewing currently. Social History Tobacco Use Smoking Status Never Smokeless Tobacco Current Types: Chew Last attempt to quit: 07/2022 Tobacco Comments Check status Alcohol: None Social History Substance and Sexual Activity Alcohol Use Not Currently Comment: Previous occasional use - rare / once per year Significant risk? No. Illicit Substances: None Social History Substance and Sexual Activity Drug Use Not Currently Significant illicit drug history? No. Substance Abuse & Treatment History Significant family history of substance abuse? No. Marijuana Usage Are you currently using marijuana? No. Legal Issues Are you currently or have you ever been on probation or parole? no Do you have or have you ever had any warrants out for your arrest? no Have you had any substance-related legal problems? no Do you have any current child support concerns? 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 Impression Low Risk -1; Moderate Risk -2; High Risk -3; Absolute contraindication -4 Social Support: 1 Identified Strengths / Risks: Patients sister Caryn accompanied patient to TE today. Patient lists his Tressa and sister Caryn as his primary supports following transport. Tressa is healthy, works realtime captioner, is able to take time off work when needed, will likely need [facility] paperwork completed, and she is able to drive. Caryn is healthy, doesn't work and she is able to drive. Financial / Insurance: 1 Identified Strengths / Risks: Patient has [facility] and [place] Medicaid for insurance. Patient reports monthly income is $4500 from working and SSDI. Patient denies any current financial concerns. Patient has prescription coverage and reports that prescription copays are manageable, most of his prescription copays are covered by insurance. Compliance: 1 Identified Strengths / Risks: Patient reports to be compliant with medications, HD, diet and fluid restrictions. Patient does not utilize a pillbox and he takes his medications on a regular basis straight from the bottle by memory. Patient denies every changing the way he takes a medication without taking to his doctor. Functional Status: 1 Identified Strengths / Risks: Patient reports to be independent with all ADLs. Patient does not need assistance with cooking, cleaning, laundry, yardwork, or shopping. Patient reports that he can walk a mile before having to take a stop to take a break. Cognitive Function: 1 Identified Strengths / Risks: No concern related to patients cognitive functioning. Patient reports no problems with attention span, disorientation, or safety concerns. Patient reports that he can manage his current medical regimen. Mental Health: 1 Identified Strengths / Risks: Patient denies any mental health diagnosis, abuse, SI attempt, psychiatric hospitalizations, or history of seeing a counselor/therapist or psychiatrist. Patient scored a zero in the DAVE-2 and PHQ-2 assessments. Coping Skills: 1 Identified Strengths / Risks: Patient reports that his greatest life stressor is knowing that his is working, and he is unable to at this time. Patient reports that if he is feeling stressed, he likes to take a drive. Substance Use: 4 Identified Strengths / Risks: Patient denies any current alcohol or illicit substance use currently. Patient also denies medical marijuana. Patient reports that he is still chewing tobacco. Patient reports that he has quit in the past and he will quit again starting today. Legal Issues: 1 Identified Strengths / Risks: Patient denies any current or past legal issues. Understanding of Transplant Process: 1 Identified Strengths / Risks: Patient has an average understanding of the process, expectations and risk associated with kidney transplant. Motivation for Transplant: 1 Identified Strengths / Risks: Patient reports to be motivated for transplant. He hopes that transplant will allow him to regain some of the things he has lost such as traveling and being overall health. PLAN: What intervention, follow-up or consults are needed? Patient needs to pass a nicotine test and commit to no tobacco use. RECOMMENDATION: Psychosocial Risk Profile (related to patient's ability to adhere to a transplant regimen and be successful): It is my clinical opinion that patient is high risk for poor transplant outcomes form a social perspective. Patient is not cleared from a psycho-social standpoint until he passes a nicotine test. Absolute psychosocial barriers to transplant were identified: Substance use High, transplant outcomes will likely be impacted by the following psychosocial barriers: None Moderate, transplant may be impacted by the following psychosocial concerns: None Low, no psychosocial issues were identified that may impact transplant outcome: All remaining categories. PROGRESS Observed: 07/11/2024 8:00 AM Status: COMPLETED Source: [facility] REPOSITORY Pre-Transplant Kidney Evalua tion Surgery Consultation PCP: DO Ross Dhillon Referring: Ada Uriostegui Preferred Pharmacy: [id number] [address] Organ: Kidney Subjective Visit Vitals BP 134/69 (BP Location: Right arm, Patient Position: Sitting, BP Cuff Size: Large adult) Pulse 79 Temp 36.7 ???C (98 ???F) (Oral) Resp 17 Ht 1.88 m (6' 2 ) Wt (!) 137 kg (303 lb) BMI 38.90 kg/m??? Smoking Status Never BSA 2.67 m??? Allergies Allergen Reactions Adhesive Tape-Silicones Rash Latex Rash If on for long periods of time Vancomycin Hives Other reaction(s): Unknown Adhesive Rash Haloperidol Anxiety Kintyre Oil GI intolerance Runny nose, watery eyes Medication Documentation Review Audit Reviewed by Sita Danielson MA (Rf Engineer) on 07/11/24 at 0808 Medication Order Taking? Sig Documenting Provider Last Dose Status anastrozole (Arimidex) 1 mg chemo tablet [id number] Yes Take 1 tablet (1 mg total) by mouth in the morning Swallow whole with a drink of water. Adams Tate NP Taking Active aspirin 81 mg chewable tablet [id number] Yes Chew 1 tablet (81 mg) in the morning. Mali Alvarez MD Taking Active atorvastatin (Lipitor) 20 mg tablet [id number] Yes Take 1 tablet every day by oral route. Zia Harden MD Taking Active b complex 0.4 mg tablet [id number] Yes Take 1 tablet by mouth in the morning and at bedtime. Zia Harden MD Taking Active calcitriol (Rocaltrol) 0.25 mcg capsule [id number] Yes Take 0.25 mcg by mouth in the morning. Zia Harden MD Taking Active calcium acetate (Phoslo) 667 mg capsule [id number] Yes take 2 capsules by mouth with meals three times a day then take 1... (REFER TO PRESCRIPTION NOTES). Zia Harden MD Taking Active carvedilol (Coreg) 12.5 mg tablet [id number] Yes Take 12.5 mg by mouth with breakfast and with evening meal. Zia Harden MD Taking Active cholecalciferol (D3-5) 5,000 Units tablet [id number] Yes Take 1 tablet every day by oral route. Zia Harden MD Taking Active furosemide (Lasix) 80 mg tablet [id number] Yes Take 80 mg by mouth two times daily. Zia Harden MD Taking Active insulin glargine (Lantus) 100 unit/mL injection vial [id number] Yes Inject 60 Units under the skin in the morning. Zia Harden MD Taking Active insulin lispro (HUMALOG KWIKPEN INSULIN SUBQ) [id number] Yes Inject 10 Units under the skin with breakfast, with lunch, and with evening meal. Zia Harden MD Taking Active levothyroxine (Synthroid, Levoxyl) 100 mcg tablet [id number] Yes Take 1 tablet every day by oral route. Zia Harden MD Taking Active polyethylene glycol (GoLYTELY) 236-22.74-6.74 -5.86 gram solution [id number] For day 2 of 2 day prep Haleigh Wilburn NP Active polyethylene glycol (GoLYTELY) 236-22.74-6.74 -5.86 gram solution [id number] No For day 1 of 2 day prep Patient not taking: Reported on 07/11/2024 Haleigh Wilburn NP Not Taking Flag for Review tadalafil (Cialis) 20 mg tablet [id number] Take 1 tablet (20 mg) by mouth if needed each day for erectile dysfunction. Adams Tate NP 04/27/23 4878 testosterone 1.62 % (20.25 mg/1.25 gram) gel in packet [id number] Yes APPLY 1 PACKET DIRECTED ONCE DAILY Adams Tate NP Taking Active Immunization History Administered Date(s) Administered Influenza, High Dose Seasonal, Preservative Free 06/17/2019 Influenza, injectable, quadrivalent, preservative free 06/18/2019, 11/05/2022 Influenza, seasonal,quadrivalent, preservative free 06/26/2013, 06/29/2014 Billie Sars-Cov-2 Vaccination 01/22/2021, 01/23/2021, 08/11/2021, 08/12/2021 Zoster, Recombinant 11/13/2022 Diagnoses: No diagnosis found. Problems: Patient Active Problem List Diagnosis Adenoma of left adrenal gland History of pancreatitis Open wound of left foot Type 2 diabetes mellitus ([facility]/HCC) Charcot's joint of foot Essential hypertension Acquired hypothyroidism Hyperlipidemia Vitamin D deficiency Libido, decreased Erectile dysfunction Hypogonadism male Diabetic neuropathic arthropathy ([facility]) Diabetic neuropathy ([facility]) End stage renal disease ([facility]) Glaucoma Hypoglycemia due to type 2 diabetes mellitus ([facility]) Iron deficiency anemia 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, 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, 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 of 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 ([facility]) Microalbuminuria Mild left ventricular systolic dysfunction Morbid obesity ([facility]) Obstructive sleep apnea syndrome Osteomyelitis ([facility]) Polyneuropathy due to type 2 diabetes mellitus ([facility]) Ulcer of right foot with fat layer exposed ([facility]) Pure hypercholesterolemia Disorder of adrenal gland ([facility]) Type 2 diabetes mellitus with 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 edema, unspecified eye ([facility]) Peripheral vascular disease ([facility]) Adrenal nodule ([facility]/HCC) Anxiety Insomnia Osteomyelitis of left foot ([facility]) Diabetic retinopathy ([facility]) Past history of chewing tobacco use Mild nonproliferative diabetic retinopathy associated with type 2 diabetes mellitus ([facility]) Diabetic foot ulcers ([facility]) Chronic sinusitis COVID-19 Anemia Preop cardiovascular exam Cardiovascular stress test abnormal Family History Problem Relation Name Age of Onset Breast cancer Mother age 53, METS to brain Heart disease Father Heart attack Father age 26 No Known Problems Sister half-sister Crohn's disease Daughter perforated bowel Social History Tobacco Use Smoking status: Never Smokeless tobacco: Current Types: Chew Last attempt to quit: 07/2022 Tobacco comments: Check status Vaping Use Vaping Use: Never used Substance Use Topics Alcohol use: Not Currently Comment: Previous occasional use - rare / once per year Drug use: Not Currently Past Medical History: Diagnosis Date Adrenal nodule (CMS/HCC) left adrenal adenoma Anemia Anxiety Charcot foot due to diabetes mellitus (CMS/HCC) Right, s/p reconstructive surgery Chronic sinusitis COVID-19 08/2023 Diabetic foot ulcers ([facility]/HCC) right Diabetic polyneuropathy ([facility]/HCC) Diabetic retinopathy ([facility]/HCC) ED (erectile dysfunction) ESRD (end stage renal disease) ([facility]) 11/23/2022 GERD (gastroesophageal reflux disease) Glaucoma History of tobacco use Hyperlipidemia Hypertension Hypogonadism in male Hypothyroidism Insomnia Neuropathy Obesity Osteomyelitis of ankle or foot, left, acute ([facility]/HCC) Pancreatitis x2 Past history of chewing tobacco use Peripheral artery disease ([facility]/HCC) Proteinuria Sleep apnea Type 2 diabetes mellitus ([facility]/HCC) Vitamin D deficiency Past Surgical History: Procedure Laterality Date AV FISTULA PLACEMENT 09/2023 Left arm AV fistula CARDIAC CATHETERIZATION 07/15/2018 Normal coronary arteries. Normal left ventricular function. False positive stress perfusion exam. COLONOSCOPY 09/03/2022 3 polyps status post polypectomy ranging from 6mm to 1-1/2 cm. Poor prep COLONOSCOPY 06/18/2022 Poor prep COLONOSCOPY 02/22/2024 FOOT SURGERY Right 12/05/2018 multple INSERTION / REMOVAL / REPLACEMENT VENOUS ACCESS CATHETER 09/16/2023 Hemodialysis catheter PERITONEAL CATHETER INSERTION 11/06/2022 PERITONEAL CATHETER REMOVAL 10/13/2023 TOE AMPUTATION Left Left lesser toe WOUND DEBRIDEMENT Right 12/24/2023 WOUND DEBRIDEMENT WITH APPLICATION OF BILAYER SKIN GRAFT RIGHT WOUND DEBRIDEMENT Right 01/24/2024 Ulceration to the right heel and 1st MPJ WOUND DEBRIDEMENT Right 02/29/2024 Ulceration to the right heel and 1st MPJ WOUND DEBRIDEMENT Right 03/30/2024 Ulceration to the right heel and 1st MPJ WOUND DEBRIDEMENT Right 05/04/2024 Ulceration to the right heel and 1st MPJ WOUND DEBRIDEMENT Right 05/18/2024 Ulceration to the right heel and 1st MPJ WOUND DEBRIDEMENT Right 06/08/2024 plantar medial right heel Dialysis History Start End Type Center Comments 03/06/2023 Hemo 11/23/2022 03/06/2023 [facility]. Dialysis Center Information [facility]. Address: [address], [address] [facility] [address] Travel Screening No screening recorded since 07/10/24 0000 Travel History Travel since 06/10/24 No documented travel since 06/10/24 HPI The patient presents for re-evaluation for possible renal transplantation. The patient is a 54 year old male with ESRD secondary to Type 2 diabetes mellitus / hypertension. He began dialysis on 11/23/2022, initially on peritoneal dialysis before switching to hemodialysis in September 2023 because PD was not working very well for him (fluid weight gain and having to dialyze for up to 15 hours). He currently dialyzes 3 days per week (M,W,F) at [facility] via a left arm AV fistula. His hospice massage therapist is Dr. Ada Uriostegui. His past medical history is significant for HTN for the past 6 years, controlled with medications, Type 2 DM for the past 29 years, controlled with insulin, diabetic retinopathy, diabetic polyneuropathy (especially in his feet and hands), diabetic ulcers s/p wound debridements, Charcot's foot (right foot) s/p reconstructive surgery, left foot wound s/p surgery (resolved), abnormal stress test in July 2018 demonstrated a mild heart attack; however subsequent cardiac catheterization showed normal coronary arteries and left ventricular function (false positive), hyperlipidemia, hypothyroidism (on Synthroid, h/o pancreatitis (a couple of times, diabetes medication-induced, last episode ~6 years ago), left adrenal adenoma (seen by endocrinology), GUSTAVO (not on CPAP), insomnia, obesity, history of tobacco use (patient chewed tobacco until 1.5 years ago), hypogonadism (on Testosterone), ED (has tried Viagra), glaucoma, chronic sinusitis, anxiety, PVD, vitamin D deficiency, proteinuria and anemia. The patient received the Billie COVID vaccine in January 2021 with Billie booster in August 2021. He had COVID infection in August 2023. The patient does not have any history of DVT/PE/clotting events. He is not on any anticoagulation. The patient does have a family history of cancer. His mother had breast cancer which developed in her brain as well. His grandmother passed of breast cancer and his maternal aunt had lung cancer (in her 80s). He still makes urine, approximately twice per day. He denies any history of UTI, blood in the urine, or kidney stones. He is able to walk a mile before stopping due to fatigue and being out of breath. This has improved since he has gotten rid of a lot of water weight. He denies chest pain or intermittent claudication with activity. He has never had a blood transfusion. He is not listed at another transplant center. He is not aware of a potential living kidney donor at this time. ABO: A positive Review of Systems Constitutional: Negative. HENT: Negative. Eyes: Negative. Respiratory: Negative. Cardiovascular: Positive for leg swelling. Gastrointestinal: Positive for constipation. Endocrine: Negative. Genitourinary: Negative. Musculoskeletal: Negative. Skin: Negative. Allergic/Immunologic: Negative. Neurological: Negative. Hematological: Negative. Psychiatric/Behavioral: The patient is nervous/anxious. Objective Physical Exam Constitutional: Appearance: He is obese. HENT: Head: Normocephalic and atraumatic. Nose: Nose normal. Mouth/Throat: Mouth: Mucous membranes are moist. Eyes: Extraocular Movements: Extraocular movements intact. Cardiovascular: Rate and Rhythm: Normal rate and regular rhythm. Pulmonary: Effort: Pulmonary effort is normal. Abdominal: General: There is no distension. Palpations: Abdomen is soft. Tenderness: There is no abdominal tenderness. Comments: Bilateral femoral pulses palpable Pannus present Musculoskeletal: Cervical back: Neck supple. Right lower leg: No edema. Left lower leg: No edema. Comments: Two ulcers at the plantar aspect of right foot, no active drainage or signs of overt infection, healing well Skin: Coloration: Skin is not jaundiced. Findings: No rash. Neurological: Mental Status: He is alert and oriented to person, place, and time. Psychiatric: Mood and Affect: Mood normal. ABO: A EPTS: 61 at 07/11/2024 9:56 AM Calculated from: Age: 54 years Has Diabetes: Yes Prior solid organ transplant: No Dialysis: 1 year 7 months Assessment/Plan The risks and benefits of Kidney transplantation were clearly discussed. These include, but are not limited to: infection, rejection, bleeding, increased cancer risk, transmission of disease, graft non-function, graft dysfunction, and even . Different types of donors were also discussed. These include live donors, standard criteria donors, extended criteria donors, HCV and HBV positive donors, donors, donors from differing blood groups, donors at higher risk of transmission of disease and other scenarios. The patient understands that these are associated with varying degrees of success and risk. The importance of adherence with the workup schedule, medication, and dialysis, and the guidelines of the [facility] were also stressed. The benefits of timely transplantation were emphasized. All the patient's questions were answered. Time spent in evaluation of this patient was estimated at 60 minutes. Diagnoses: 1. with ESRD secondary to diabetic nephropathy 2. HTN 3. Pre-surgery evaluation. Z01.818: Encounter for other preprocedural examination. Overall, the patient seems to be a moderate risk kidney transplant candidate. He still chews tobacco but is trying to quit. We discussed about the importance of quitting tobacco and it being a requirement in order for him to get listed. His right foot ulcers seem to be healing well and was not actively draining. He does see podiatry on the , we will try to get a clearance letter from them. The ulcers have been debrided recently. MRI did not show any osteomyelitis. Functional status is reasonable. Once the patient has quit tobacco, we will do some random testings and then get the patient listed. We will get vascular studies to look for any blood flow issues in the right foot contributing to the nonhealing ulcers, they have been healing for 1 year now. I believe he is best served continuing with Kidney transplant evaluation. Patient understands and wishes to continue. Patient verbalized understanding and all questions were answered. Return to Office: in 1 year Juan Burgess MD PROGRESS Observed: 07/11/2024 8:00 AM Status: COMPLETED Source: [facility] REPOSITORY Transplant Nutrition Assessm ent Name: Evans Forte : 1970 Assessment date: 07/11/2024 PMH: Anemia, anxiety, DM, RD, ESRD, HERD, HLD, HTN, hypothyroid, obesity, pancreatitis, ulcer of foot, vitamin D deficiency Dialysis HX: switch to HD Height: 188cm Weight: 137kg BMI Classification: Obese (30+)Body mass index is 38.9 kg/m???. Appetite: Good. Context: The patient states that he has lost 50-60# in 1.5 years, intentional with diet changes. Food Allergy: Kintyre seeds Current diet: Renal diet. No supplements . High protein and vegetables. Nutrition/Diet: Most meals eaten at home. Diabetes Management: 60 units lantus and humalog 10units TID. Checks blood sugars often (has a dexcom). A1C 6.3% Diet Recall Breakfast: Skips on dialysis days or has eggs. Lunch: [place] or a salad. Dinner: Variety of meats, vegetable, (limits starch). Snacks: Seldomly will snack on carrots and dip, a cookie. Drinks: Water, occasional mountain dew (restricts fluids to <1L) Dietary & Physical Activity Compliance: -Complies to and understands diet. and Complies to free water restrictions. -Activity: Yardwork and daily living activities. Goes on a walk every afternoon, lifting light weights Reported Medications/Supplements: phoslo, D3, B complex Nutrition Labs: WNL at dialysis Associated Symptoms: Constipation. at times. Taking probiotics Skin Appearance: R foot wound (Now healed after 2 skin grafts) Nutrition Risk: moderate Patient Goals: Diet: Follow meal plan given and portion control., Glycemic control., Gradual weight changes., and Limit calories. Exercise: 30 minutes physical activity most days of the week. Notes: RD has no nutrition concerns for listing. He has good blood sugar control. The patient has lost ~60# over the past 1.5 with diet changes and increasing activity. His BMI is 38.9. His original goal weight was 300# and he has achieved this. He has a new goal weight of 250#. He plans to continue to follow his diet and stay physically active. MARISSA reviewed diet changes to expect post transplant. Gerri Powell RD EVALUATION Observed: 07/11/2024 8:00 AM Status: COMPLETED Source: [facility] REPOSITORY [id number] Evans Forte 1970 M Date Provider Department Center 07/11/2024 Guru-JUAN BURGESS None Family History Problem Relation Age of Onset Breast cancer Mother Comments: age 53, METS to brain Heart disease Father Heart attack Father Comments: age 26 No Known Problems Sister Comments: half-sister Breast cancer Maternal Grandmother Crohn's disease Daughter Comments: perforated bowel Cancer Father's Brother Comments: Unknown type and region Family Status - Relation Status Age at Mother Father Sister Maternal Grandmother Daughter Father's Brother Alive Level of Service:53609 UT OFFICE/OUTPATIENT ESTABLISHED HIGH MDM 40 MIN Reason for Visit and Comments: Kidney Eval [[id number]] PROGRESS Observed: 07/11/2024 8:00 AM Status: COMPLETED Source: [facility] REPOSITORY Coordinator met with patient for re-evaluation appointment today in the Transplant clinic. Patient watched the transplant education video. Reviewed transplant process and consents with patient. Answered patient questions. Social work, finance and fishing rod trimmer in to see patient for review. Dr. Cabrera in for H&P and review of transplant plan. Dr. Burgess in for surgical evaluation. Coordinator provided copy of plan to patient and reviewed it with them. Patient aware further testing needed and to keep transplant team updated. Understanding verbalized by patient. Sent patient for labs, EKG & CXR today. File Drawer Finisher provided patient TE folder with education on various transplant consents, the workup process, surgery details, postop expectations, transplant statistics, and living donor information. Answered patient questions and verified understanding. Melinda Hidalgo RN PROGRESS Observed: 07/11/2024 8:00 AM Status: COMPLETED Source: [facility] REPOSITORY Pre-Transplant Evaluation Nephrology Consult Chief Complaint Patient presents with Kidney Eval PCP: DO Ravinder Dhillonp Referring: Ada Uriostegui Preferred Pharmacy: [id number] [address] Organ: Kidney Subjective Visit Vitals BP 134/69 (BP Location: Right arm, Patient Position: Sitting, BP Cuff Size: Large adult) Pulse 79 Temp 36.7 ???C (98 ???F) (Oral) Resp 17 Ht 1.88 m (6' 2 ) Wt (!) 137 kg (303 lb) BMI 38.90 kg/m??? Smoking Status Never BSA 2.67 m??? Allergies Allergen Reactions Adhesive Tape-Silicones Rash Latex Rash If on for long periods of time Vancomycin Hives Other reaction(s): Unknown Adhesive Rash Haloperidol Anxiety Kintyre Oil GI intolerance Runny nose, watery eyes Medication Documentation Review Audit Reviewed by Sita Danielson MA (Rf Engineer) on 07/11/24 at 0808 Medication Order Taking? Sig Documenting Provider Last Dose Status anastrozole (Arimidex) 1 mg chemo tablet [id number] Yes Take 1 tablet (1 mg total) by mouth in the morning Swallow whole with a drink of water. Adams Tate NP Taking Active aspirin 81 mg chewable tablet [id number] Yes Chew 1 tablet (81 mg) in the morning. Mali Alvarez MD Taking Active atorvastatin (Lipitor) 20 mg tablet [id number] Yes Take 1 tablet every day by oral route. Zia Harden MD Taking Active b complex 0.4 mg tablet [id number] Yes Take 1 tablet by mouth in the morning and at bedtime. Zia Harden MD Taking Active calcitriol (Rocaltrol) 0.25 mcg capsule [id number] Yes Take 0.25 mcg by mouth in the morning. Zia Harden MD Taking Active calcium acetate (Phoslo) 667 mg capsule [id number] Yes take 2 capsules by mouth with meals three times a day then take 1... (REFER TO PRESCRIPTION NOTES). Zia Harden MD Taking Active carvedilol (Coreg) 12.5 mg tablet [id number] Yes Take 12.5 mg by mouth with breakfast and with evening meal. Zia Harden MD Taking Active cholecalciferol (D3-5) 5,000 Units tablet [id number] Yes Take 1 tablet every day by oral route. Zia Harden MD Taking Active furosemide (Lasix) 80 mg tablet [id number] Yes Take 80 mg by mouth two times daily. Zia Harden MD Taking Active insulin glargine (Lantus) 100 unit/mL injection vial [id number] Yes Inject 60 Units under the skin in the morning. Zia Harden MD Taking Active insulin lispro (HUMALOG KWIKPEN INSULIN SUBQ) [id number] Yes Inject 10 Units under the skin with breakfast, with lunch, and with evening meal. Zia Harden MD Taking Active levothyroxine (Synthroid, Levoxyl) 100 mcg tablet [id number] Yes Take 1 tablet every day by oral route. Zia Harden MD Taking Active polyethylene glycol (GoLYTELY) 236-22.74-6.74 -5.86 gram solution [id number] For day 2 of 2 day prep Haleigh Wilburn, POST TENSIONING IRONWORKER Active polyethylene glycol (GoLYTELY) 236-22.74-6.74 -5.86 gram solution [id number] No For day 1 of 2 day prep Patient not taking: Reported on 07/11/2024 Haleigh Kp POST TENSIONING IRONWORKER Not Taking Flag for Review tadalafil (Cialis) 20 mg tablet [id number] Take 1 tablet (20 mg) by mouth if needed each day for erectile dysfunction. Adams Tate NP 04/27/23 235 testosterone 1.62 % (20.25 mg/1.25 gram) gel in packet [id number] Yes APPLY 1 PACKET DIRECTED ONCE DAILY Adams Tate NP Taking Active Immunization History Administered Date(s) Administered Influenza, High Dose Seasonal, Preservative Free 06/17/2019 Influenza, injectable, quadrivalent, preservative free 06/18/2019, 11/05/2022 Influenza, seasonal,quadrivalent, preservative free 06/26/2013, 06/29/2014 Billie Sars-Cov-2 Vaccination 01/22/2021, 01/23/2021, 08/11/2021, 08/12/2021 Zoster, Recombinant 11/13/2022 Patient Active Problem List Diagnosis Adenoma of left adrenal gland History of pancreatitis Open wound of left foot Type 2 diabetes mellitus ([facility]) Charcot's joint of foot Essential hypertension Acquired hypothyroidism Hyperlipidemia Vitamin D deficiency Libido, decreased Erectile dysfunction Hypogonadism male Diabetic neuropathic arthropathy ([facility]) Diabetic neuropathy ([facility]) End stage renal disease ([facility]) Glaucoma Hypoglycemia due to type 2 diabetes mellitus ([facility]) Iron deficiency anemia 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, 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, trunk halfway current use of insulin ([facility]) Microalbuminuria Mild left ventricular systolic dysfunction Morbid obesity ([facility]) Obstructive sleep apnea syndrome Osteomyelitis ([facility]) Polyneuropathy due to type 2 diabetes mellitus ([facility]) Ulcer of right foot with fat layer exposed ([facility]) Pure hypercholesterolemia Disorder of adrenal gland ([facility]) Type 2 diabetes mellitus with 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 edema, unspecified eye ([facility]) Peripheral vascular disease ([facility]) Adrenal nodule ([facility]) Anxiety Insomnia Osteomyelitis of left foot ([facility]/HCC) Diabetic retinopathy (CMS/HCC) Past history of chewing tobacco use Mild nonproliferative diabetic retinopathy associated with type 2 diabetes mellitus (CMS/HCC) Diabetic foot ulcers (CMS/HCC) Chronic sinusitis COVID-19 Anemia Preop cardiovascular exam Cardiovascular stress test abnormal Family History Problem Relation Name Age of Onset Breast cancer Mother age 53, METS to brain Heart disease Father Heart attack Father age 26 No Known Problems Sister half-sister Crohn's disease Daughter perforated bowel Social History Tobacco Use Smoking status: Never Smokeless tobacco: Current Types: Chew Last attempt to quit: 07/2022 Tobacco comments: Check status Vaping Use Vaping Use: Never used Substance Use Topics Alcohol use: Not Currently Comment: Previous occasional use - rare / once per year Drug use: Not Currently Past Medical History: Diagnosis Date Adrenal nodule (CMS/HCC) left adrenal adenoma Anemia Anxiety Charcot foot due to diabetes mellitus (CMS/HCC) Right, s/p reconstructive surgery Chronic sinusitis COVID-19 08/2023 Diabetic foot ulcers (CMS/HCC) right Diabetic polyneuropathy ([facility]/HCC) Diabetic retinopathy (CMS/HCC) ED (erectile dysfunction) ESRD (end stage renal disease) (CMS/HCC) 11/23/2022 GERD (gastroesophageal reflux disease) Glaucoma History of tobacco use Hyperlipidemia Hypertension Hypogonadism in male Hypothyroidism Insomnia Neuropathy Obesity Osteomyelitis of ankle or foot, left, acute (CMS/HCC) Pancreatitis x2 Past history of chewing tobacco use Peripheral artery disease (CMS/HCC) Proteinuria Sleep apnea Type 2 diabetes mellitus (CMS/HCC) Vitamin D deficiency Past Surgical History: Procedure Laterality Date AV FISTULA PLACEMENT 09/2023 Left arm AV fistula CARDIAC CATHETERIZATION 07/15/2018 Normal coronary arteries. Normal left ventricular function. False positive stress perfusion exam. COLONOSCOPY 09/03/2022 3 polyps status post polypectomy ranging from 6mm to 1-1/2 cm. Poor prep COLONOSCOPY 06/18/2022 Poor prep COLONOSCOPY 02/22/2024 FOOT SURGERY Right 12/05/2018 multple INSERTION / REMOVAL / REPLACEMENT VENOUS ACCESS CATHETER 09/16/2023 Hemodialysis catheter PERITONEAL CATHETER INSERTION 11/06/2022 PERITONEAL CATHETER REMOVAL 10/13/2023 TOE AMPUTATION Left Left lesser toe WOUND DEBRIDEMENT Right 12/24/2023 WOUND DEBRIDEMENT WITH APPLICATION OF BILAYER SKIN GRAFT RIGHT WOUND DEBRIDEMENT Right 01/24/2024 Ulceration to the right heel and 1st MPJ WOUND DEBRIDEMENT Right 02/29/2024 Ulceration to the right heel and 1st MPJ WOUND DEBRIDEMENT Right 03/30/2024 Ulceration to the right heel and 1st MPJ WOUND DEBRIDEMENT Right 05/04/2024 Ulceration to the right heel and 1st MPJ WOUND DEBRIDEMENT Right 05/18/2024 Ulceration to the right heel and 1st MPJ WOUND DEBRIDEMENT Right 06/08/2024 plantar medial right heel Dialysis History Start End Type Center Comments Peritoneal [facility] Dialysis Center Information [facility] [employer] [facility]. Address: [address] [place] [address], [address] [place] [id number] Travel Screening Question Response Have you been in contact with someone who was sick? No / Unsure Do you have any of the following new or worsening symptoms? None of these Have you traveled internationally or domestically in the last month? No Travel History Travel since 05/15/24 No documented travel since 05/15/24 HPI The patient presents for re-evaluation for possible renal transplantation. The patient is a 54 year old male with ESRD secondary to Type 2 diabetes mellitus / hypertension. He began dialysis on 11/23/2022, initially on peritoneal dialysis before switching to hemodialysis in September 2023 because PD was not working very well for him (fluid weight gain and having to dialyze for up to 15 hours). He currently dialyzes 3 days per week (M,W,F) at [facility] via a left arm AV fistula. His hospice massage therapist is Dr. Ada Uriostegui. His past medical history is significant for HTN for the past 6 years, controlled with medications, Type 2 DM for the past 29 years, controlled with insulin, diabetic retinopathy, diabetic polyneuropathy (especially in his feet and hands), diabetic ulcers s/p wound debridements, Charcot's foot (right foot) s/p reconstructive surgery, left foot wound s/p surgery (resolved), abnormal stress test in July 2018 demonstrated a mild heart attack; however subsequent cardiac catheterization showed normal coronary arteries and left ventricular function (false positive), hyperlipidemia, hypothyroidism (on Synthroid, h/o pancreatitis (a couple of times, diabetes medication-induced, last episode ~6 years ago), left adrenal adenoma (seen by endocrinology), GUSTAVO (not on CPAP), insomnia, obesity, history of tobacco use (patient chewed tobacco until 1.5 years ago), hypogonadism (on Testosterone), ED (has tried Viagra), glaucoma, chronic sinusitis, anxiety, PVD, vitamin D deficiency, proteinuria and anemia. The patient received the Billie COVID vaccine in January 2021 with Billie booster in August 2021. He had COVID infection in August 2023. The patient does not have any history of DVT/PE/clotting events. He is not on any anticoagulation. The patient does have a family history of cancer. His mother had breast cancer which developed in her brain as well. His grandmother passed of breast cancer and his maternal aunt had lung cancer (in her 80s). He still makes urine, approximately twice per day. He denies any history of UTI, blood in the urine, or kidney stones. He is able to walk a mile before stopping due to fatigue and being out of breath. This has improved since he has gotten rid of a lot of water weight. He denies chest pain or intermittent claudication with activity. He has never had a blood transfusion. He is not listed at another transplant center. He is not aware of a potential living kidney donor at this time. ABO: A positive Review of Systems Constitutional: Negative. HENT: Negative. Eyes: Negative. Respiratory: Negative. Cardiovascular: Positive for leg swelling. Gastrointestinal: Positive for constipation. Endocrine: Negative. Genitourinary: Negative. Musculoskeletal: Negative. Skin: Negative. Allergic/Immunologic: Negative. Neurological: Negative. Hematological: Negative. Psychiatric/Behavioral: The patient is nervous/anxious. Objective Physical Exam GENERAL: Pt is in NAD, obese HEAD: NC/AT Mouth clear of exudates EARS: Normal exterior, hearing grossly intact EYES: sclera clear NECK: supple HEART: reg S1, S2 LUNGS: clear to auscultation ABDOMEN: soft, bowel sounds noted NEURO: awake, alert, moves extremities Reflexes 2 + EXTREMITIES: No edema of lower extremities. No edema upper extremities ; L forearm AVF with good thrill and bruit Skin tattoos noted ABO: A EPTS: EPTS: 36 at 07/11/2024 8:25 AM Calculated from: Age: 54 years Has Diabetes: Yes Prior solid organ transplant: No On dialysis: No Assessment/Plan This pt is seen for possible future renal transplant. He is obese. He will need cardiac evaluation. He otherwise seems appropriate for transplantation. Diagnoses: 1. with ESRD secondary to diabetic nephropathy 2. HTN 3. Pre-surgery evaluation - Z01.818 Encounter for other preprocedural examination Discussion notes: Discuss living donation - The patient should discuss living donation with family and friends. Complete transplant labs - The patient will need to complete transplant labs. PPD skin test or TB quantiferon - The patient will need to have a PPD skin test or TB quantifernon drawn with transplant labs. Obtain dental clearance - The patient will need to obtain dental clearance. Complete an EKG - The patient will need to complete an EKG. Complete a chest x-ray - The patient will need to complete a chest x-ray. Complete a colonoscopy - The patient will need to complete a colonoscopy. PSA drawn - The patient will need to have a PSA drawn. Obtain cardiac clearance - The patient will need to obtain cardiac clearance. Complete a CT of the abdomen and pelvis without contrast - The patient will need to complete a CT of the abdomen and pelvis without contrast to assess vasculature prior to transplant. Seen by 7th grade social studies teacher - The patient will need to be seen by our 7th grade social studies teacher. Seen by our financial counselor - The patient will need to be seen by our financial counselor. Discussed the risks and benefits - I discussed the risks and benefits of renal transplantation and chronic immunosuppression with the patient. He appeared to understand these risks and is interested in proceeding to renal transplantation. Follow-Up: in 1 [address] Bertin Cabrera MD CT ABDOMEN PELVIS WO RENAL RECIPIENT Observed: 07/11/2024 12:00 AM Status: UNK Source: [facility] REPOSITORY Addendum: Note that there is no hydronephrosis or urinary tract calculi. Electronically signed: Alonso Sampson.CT ABDOMEN AND PELVIS WITHOUT CONTRAST COMPARISON: 04/07/2022 CLINICAL HISTORY: End-stage renal disease, pretransplant evaluation. TECHNIQUE: Unenhanced axial images were obtained from the lung bases to the pubic symphysis with sagittal and coronal 2D reformatted images. Oral contrast administered: No. Automatic exposure control (AEC) was utilized. Findings: Low-attenuation 2.6 cm left adrenal nodule consistent with a benign adenoma, unchanged. Normal right adrenal gland. Gallbladder is present. Liver, spleen, and pancreas demonstrate no acute findings given compromised evaluation without intravenous contrast. No free intraperitoneal fluid or free intraperitoneal air. No bowel obstruction. There are enlarged right pelvic lymph nodes along the external iliac vessels, the largest adjacent to lateral aspect of right common iliac artery measuring 1.7 cm short axis now seen as well as mildly enlarged right common iliac lymph node. No enlarged upper abdominal lymph nodes. Minimal calcified plaque of normal caliber abdominal aorta. No discrete calcified plaque of right iliac artery. Minimal calcified plaque of left common, internal, and external iliac arteries. No suspicious or acute osseous lesion. IMPRESSION: 1. Enlarged pelvic lymph nodes which are nonspecific. Lymphoma/leukemia is not excluded and clinical correlation is advised. 2. Only minimal calcified plaque of the left iliac artery as detailed above. 3. Additional chronic changes as described. All CT scans at this facility use dose modulation, iterative reconstruction, and/or weight based dosing when appropriate to reduce radiation dose to as low as reasonably achievable. Electronically signed: Alonso Sampson. BASIC METABOLIC PANEL Collected: 2023 3:44 PM Status: UNK Source: [facility] REPOSITORY TYPE CODE TESTS RESULT OUT OF RANGE REFERENCE UNITS LAB [id number] SODIUM (MMOL/L) IN SER/PLAS 138 136-145 mmol/L LAB [id number] POTASSIUM (MMOL/L) IN SER/PLAS 4.4 3.5-5.1 mmol/L LAB [id number] CHLORIDE (MMOL/L) IN SER/PLAS 101 98-107 mmol/L LAB [id number] CARBON DIOXIDE, TOTAL (MMOL/L) IN SER/PLAS 25 21-31 mmol/L LAB [id number] UREA NITROGEN (MG/DL) IN SER/PLAS 67 High 7-25 mg/dL LAB [id number] CREATININE (MG/DL) IN SER/PLAS 7.29 High 0.70-1.30 mg/dL LAB [id number] GLUCOSE (MG/DL) IN SER/PLAS 126 High 70-100 mg/dL LAB [id number] CALCIUM (MG/DL) IN SER/PLAS 8.7 8.6-10.3 mg/dL LAB [id number] ANION GAP IN SER/PLAS 16 7-20 mmol/L LAB [id number] GLOMERULAR FILTRATION RATE ML/MIN/1.73 SQ M.PREDICTED 8.3 Low >60.0 mL/min/ 1.73m*2 Result Comment: The [facility]???s estimated glomerular filtration rate (eGFR) will no longer include consideration of race in its calculation. The National Kidney Foundation???s eGFR Task Force developed new recommendations for the estimation of the glomerular filtration rate in the [place] They recommend immediate implementation of the new equation refit without the race variable in all laboratories because the calculation does not include race. In addition to not including race in the calculation and reporting, it included diversity in its development, and has acceptable performance characteristics and potential consequences that do not disproportionately affect any one group of individuals. LAB [id number] UREA NITROGEN/CREA TININE (MASS RATIO) IN SER/PLAS 9.2 NA Performed By: #### [id number] ### # [facility] [address] [place] [address] CBC WITH AUTO DIFFERENTIAL Collected: 06/22/2024 3:44 PM Status: UNK Source: [facility] REPOSITORY TYPE CODE TESTS RESULT OUT OF RANGE REFERENCE UNITS LAB [id number] LEUKOCYTES(10*3/ UL) IN BLOOD BY AUTOMATED COUNT 11.54 High 4.00-10.60 10*3/uL LAB [id number] ERYTHROCYTES (10*6/UL) IN BLOOD BY AUTOMATED COUNT 3.97 Low 4.20-5.70 10*6/uL LAB [id number] HEMOGLOBIN (G/DL) IN BLOOD 12.1 Low 13.0-17.0 g/dL LAB 1102046 HEMATOCRIT (%) IN BLOOD BY AUTOMATED COUNT 37.0 Low 39.0-55.0 % LAB [id number] ERYTHROCYTE MEAN CORPUSCULAR VOLUME (FL) BY AUTOMATED COUNT 93.2 82.0-98.0 fL LAB [id number] ERYTHROCYTE MEAN CORPUSCULAR HEMOGLOBIN (PG) BY AUTOMATED COUNT 30.5 27.0-33.0 pg LAB [id number] ERYTHROCYTE MEAN CORPUSCULAR HEMOGLOBIN CONCENTRATION (G/DL) BY AUTOMATED 32.7 32.0-35.0 g/dL LAB [id number] ERYTHROCYTE DISTRIBUTION WIDTH (RATIO) BY AUTOMATED COUNT 15.2 High 11.5-15.0 % LAB [id number] NEUTROPHILS/100 LEUKOCYTES IN BLOOD BY AUTOMATED COUNT 71.2 40.0-72.0 % LAB [id number] LYMPHOCYTES/100 LEUKOCYTES IN BLOOD BY AUTOMATED COUNT 18.2 Low 20.0-45.0 % LAB [id number] MONOCYTES/100 LEUKOCYTES IN BLOOD BY AUTOMATED COUNT 7.6 5.0-12.0 % LAB [id number] EOSINOPHILS/100 LEUKOCYTES IN BLOOD BY AUTOMATED COUNT 2.1 0.0-6.0 % LAB [id number] BASOPHILS/100 LEUKOCYTES IN BLOOD BY AUTOMATED COUNT 0.3 0.0-1.0 % LAB [id number] NEUTROPHILS (10*3/UL) IN BLOOD BY AUTOMATED COUNT 8.22 High 1.60-7.60 10*3/uL LAB [id number] LYMPHOCYTES (10*3/UL) IN BLOOD BY AUTOMATED COUNT 2.10 1.20-4.00 10*3/uL LAB [id number] MONOCYTES (10*3/UL) IN BLOOD BY AUTOMATED COUNT 0.88 0.10-1.00 10*3/uL LAB [id number] EOSINOPHILS (10*3/UL) IN BLOOD BY AUTOMATED COUNT 0.24 0.00-0.50 10*3/uL LAB [id number] BASOPHILS (10*3/UL) IN BLOOD BY AUTOMATED COUNT 0.03 0.00-0.20 10*3/uL LAB [id number] PLATELETS (10*3/UL) IN BLOOD AUTOMATED COUNT 294 150-400 10*3/uL LAB 254 NRBC (PER 100 WBCS) BY AUTOMATED COUNT 0.0 0 % LAB 1767 IMMATURE GRANULOCYTES/100 LEUKOCYTES IN BLOOD BY AUTOMATED COUNT 0.6 0.0-1.0 % LAB 1768 IMMATURE GRANULOCYTES (10*3/UL) IN BLOOD BY AUTOMATED COUNT 0.07 0.00-0.20 10*3/uL Performed By: #### [id number] # ### [facility] [address] [place] [address] LAB Observed: 06/22/2024 3:40 PM Status: COMPLETED Source: [facility] REPOSITORY [id number] Evans Forte 1970 M Date Provider Department Center 06/22/2024 2245-[facility] RESOURCE [facility] [place] [facility] Family History Problem Relation Age of Onset Breast cancer Mother Comments: age 53, METS to brain Heart disease Father Heart attack Father Comments: age 26 No Known Problems Sister Comments: half-sister Crohn's disease Daughter Comments: perforated bowel Family Status - Relation Status Age at Mother Father Sister Daughter PROGRESS Observed: 06/22/2024 2:20 PM Status: COMPLETED Source: [facility] REPOSITORY [place] [facility] - [facility] Subjective Evans Forte is a 54 y.o. year old male patient being seen for Cardiac evaluation for transplant (Follow for abnormal stress done 06/13/2024) Patient Active Problem List Diagnosis Adenoma of left adrenal gland History of pancreatitis Open wound of left foot Type 2 diabetes mellitus (CMS/HCC) Charcot's joint of foot Essential hypertension Acquired hypothyroidism Hyperlipidemia Vitamin D deficiency Libido, decreased Erectile dysfunction Hypogonadism male Diabetic neuropathic arthropathy (CMS/HCC) Diabetic neuropathy (CMS/HCC) End stage renal disease (CMS/HCC) Glaucoma Hypoglycemia due to type 2 diabetes mellitus (CMS/HCC) Iron deficiency anemia 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, 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, trunk halfway current use of insulin (CMS/HCC) Microalbuminuria Mild left ventricular systolic dysfunction Morbid obesity (CMS/HCC) Obstructive sleep apnea syndrome Osteomyelitis (CMS/HCC) Polyneuropathy due to type 2 diabetes mellitus (CMS/HCC) Ulcer of right foot with fat layer exposed (CMS/HCC) Pure hypercholesterolemia Disorder of adrenal gland (CMS/HCC) Type 2 diabetes mellitus with 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 edema, unspecified eye (CMS/HCC) Peripheral vascular disease (CMS/HCC) Adrenal nodule (CMS/HCC) Anxiety Insomnia Osteomyelitis of left foot (CMS/HCC) Diabetic retinopathy (CMS/HCC) Past history of chewing tobacco use Mild nonproliferative diabetic retinopathy associated with type 2 diabetes mellitus (CMS/HCC) Diabetic foot ulcers (CMS/HCC) Chronic sinusitis COVID-19 Anemia Family History Problem Relation Name Age of Onset Breast cancer Mother age 53, METS to brain Heart disease Father Heart attack Father age 26 No Known Problems Sister half-sister Crohn's disease Daughter perforated bowel Social History Tobacco Use Smoking status: Never Smokeless tobacco: Former Types: Chew Quit date: 07/2022 Tobacco comments: Check status Vaping Use Vaping Use: Never used Substance Use Topics Alcohol use: Not Currently Comment: Previous occasional use - rare / once per year Drug use: Not Currently HPI Evans is seen as a new patient for cardiac evaluation prior to renal transplantation. He is a 54 yo man with history of ESRD secondary to diabetes, currently on dialysis via a left arm AV fistula. Prior history is significant for diabetes for 30 years, hypertension for 10 years, hyperlipidemia all on treatment. No prior cardiac history except for cardiac catheterization done in 2018 in the setting of abnormal stress test that showed normal coronary arteries. he denies chest pain, shortness of breath, palpitations, dizziness, syncope. He has mild leg edema. he has good exercise tolerance. There is no claudication. Review of Systems Constitutional: Negative for fever and night sweats. HENT: Negative. Eyes: Negative. Cardiovascular: Positive for leg swelling. Negative for chest pain, claudication, dyspnea on exertion, irregular heartbeat, palpitations and syncope. Respiratory: Negative for cough and wheezing. Hematologic/Lymphatic: Does not bruise/bleed easily. Skin: Negative for color change, poor wound healing and rash. Musculoskeletal: Negative. Neurological: Negative for dizziness, headaches and seizures. Psychiatric/Behavioral: Negative for depression. Objective Visit Vitals BP 133/69 (BP Location: Right arm, Patient Position: Sitting) Pulse 79 Ht 1.854 m (6' 1 ) Wt (!) 137 kg (303 lb) SpO2 99% BMI 39.98 kg/m??? Smoking Status Never BSA 2.66 m??? Physical Exam Constitutional: Appearance: He is well-developed. He is obese. He is not ill-appearing. HENT: Head: Normocephalic and atraumatic. Nose: Nose normal. Eyes: General: No scleral icterus. Pupils: Pupils are equal, round, and reactive to light. Neck: Thyroid: No thyromegaly. Vascular: No JVD. Cardiovascular: Rate and Rhythm: Normal rate and regular rhythm. Pulses: Radial pulses are 2+ on the right side and 2+ on the left side. Heart sounds: Normal heart sounds. No murmur heard. No friction rub. No gallop. Arteriovenous access: Left arteriovenous access is present. Pulmonary: Effort: Pulmonary effort is normal. No respiratory distress. Breath sounds: Normal breath sounds. No wheezing or rales. Chest: Chest wall: No tenderness. Abdominal: General: Bowel sounds are normal. There is no distension. Palpations: Abdomen is soft. Tenderness: There is no abdominal tenderness. Musculoskeletal: General: No swelling. Cervical back: Neck supple. Skin: General: Skin is warm and dry. Neurological: General: No focal deficit present. Mental Status: He is alert and oriented to person, place, and time. Psychiatric: Mood and Affect: Mood normal. Behavior: Behavior is cooperative. Judgment: Judgment normal. Allergies Allergies Allergen Reactions Adhesive Tape-Silicones Rash Latex Rash If on for long periods of time Vancomycin Hives Other reaction(s): Unknown Adhesive Rash Haloperidol Anxiety [place] Oil GI intolerance Runny nose, watery eyes Medications Current Outpatient Medications: anastrozole (Arimidex) 1 mg chemo tablet, Take 1 tablet (1 mg total) by mouth in the morning Swallow whole with a drink of water., Disp: 90 tablet, Rfl: 3 atorvastatin (Lipitor) 20 mg tablet, Take 1 tablet every day by oral route., Disp: , Rfl: b complex 0.4 mg tablet, Take 1 tablet by mouth in the morning and at bedtime., Disp: , Rfl: calcitriol (Rocaltrol) 0.25 mcg capsule, Take 0.25 mcg by mouth in the morning., Disp: , Rfl: calcium acetate (Phoslo) 667 mg capsule, take 2 capsules by mouth with meals three times a day then take 1... (REFER TO PRESCRIPTION NOTES)., Disp: , Rfl: carvedilol (Coreg) 12.5 mg tablet, Take 12.5 mg by mouth with breakfast and with evening meal., Disp: , Rfl: cholecalciferol (D3-5) 5,000 Units tablet, Take 1 tablet every day by oral route., Disp: , Rfl: furosemide (Lasix) 80 mg tablet, Take 80 mg by mouth two times daily., Disp: , Rfl: insulin glargine (Lantus) 100 unit/mL injection vial, Inject 60 Units under the skin in the morning., Disp: , Rfl: insulin lispro (HUMALOG KWIKPEN INSULIN SUBQ), Inject 10 Units under the skin with breakfast, with lunch, and with evening meal., Disp: , Rfl: levothyroxine (Synthroid, Levoxyl) 100 mcg tablet, Take 1 tablet every day by oral route., Disp: , Rfl: aspirin 81 mg chewable tablet, Chew 1 tablet (81 mg) in the morning., Disp: 90 tablet, Rfl: 3 polyethylene glycol (GoLYTELY) 236-22.74-6.74 -5.86 gram solution, For day 2 of 2 day prep, Disp: 4000 mL, Rfl: 0 polyethylene glycol (GoLYTELY) 236-22.74-6.74 -5.86 gram solution, For day 1 of 2 day prep, Disp: 4000 mL, Rfl: 0 tadalafil (Cialis) 20 mg tablet, Take 1 tablet (20 mg) by mouth if needed each day for erectile dysfunction., Disp: 6 tablet, Rfl: 11 testosterone 1.62 % (20.25 mg/1.25 gram) gel in packet, APPLY 1 PACKET DIRECTED ONCE DAILY, Disp: 37.5 g, Rfl: 0 Recent Labs Hospital Outpatient Visit on 06/20/2024 Component Date Value Potassium POC 06/20/2024 4.4 Glucose POC 06/20/2024 114 (H) Case Report 06/20/2024 Value:Surgical Pathology Case: [id number] Authorizing Provider: Jonel Henley MD Collected: 06/20/2024 1141 Ordering Location: [place] [facility] Received: 06/20/2024 1309 [facility] Pathologist: Carly Beard MD Specimen: Rectum, RECTUM POLYP Final Diagnosis 06/20/2024 Value:This result contains rich text formatting which cannot be displayed here. Clinical Information 06/20/2024 Value:This result contains rich text formatting which cannot be displayed here. Gross Description 06/20/2024 Value:This result contains rich text formatting which cannot be displayed here. Microscopic Description 06/20/2024 Value:This result contains rich text formatting which cannot be displayed here. Lab on 05/23/2024 Component Date Value PSA 05/23/2024 2.3 Sodium 05/23/2024 139 Potassium 05/23/2024 4.0 Chloride 05/23/2024 98 CO2 05/23/2024 30 Anion Gap 05/23/2024 15 BUN 05/23/2024 41 (H) Creatinine 05/23/2024 6.78 (H) BUN/Creatinine Ratio 05/23/2024 6.0 Glucose 05/23/2024 161 (H) Calcium 05/23/2024 9.6 AST 05/23/2024 15 ALT (SGPT) 05/23/2024 25 Alkaline Phosphatase 05/23/2024 123 (H) Total Protein 05/23/2024 8.0 Albumin 05/23/2024 4.5 Total Bilirubin 05/23/2024 0.6 eGFR 05/23/2024 9.1 (L) Testosterone 05/23/2024 373 Estradiol 05/23/2024 5.0 (L) Auto WBC 05/23/2024 11.51 (H) RBC 05/23/2024 4.48 Hemoglobin 05/23/2024 13.5 Hematocrit 05/23/2024 41.7 MCV 05/23/2024 93.1 MCH 05/23/2024 30.1 MCHC 05/23/2024 32.4 RDW 05/23/2024 13.7 Neutrophils Relative 05/23/2024 71.7 Lymphocytes Relative 05/23/2024 16.7 (L) Monocytes Relative 05/23/2024 6.9 Eosinophils Relative 05/23/2024 3.1 Basophils Relative 05/23/2024 0.5 Neutrophils Absolute 05/23/2024 8.25 (H) Lymphocytes Absolute 05/23/2024 1.92 Monocytes Absolute 05/23/2024 0.79 Eosinophils Absolute 05/23/2024 0.36 Basophils Absolute 05/23/2024 0.06 Platelets 05/23/2024 332 nRBC % 05/23/2024 0.0 Immature Granulocytes Re* 05/23/2024 1.1 (H) Immature Granulocytes Ab* 05/23/2024 0.13 Lab on 01/05/2024 Component Date Value Testosterone 01/05/2024 293 Estradiol 01/05/2024 29.0 PSA 01/05/2024 0.5 Auto WBC 01/05/2024 9.35 RBC 01/05/2024 3.84 (L) Hemoglobin 01/05/2024 11.8 (L) Hematocrit 01/05/2024 37.0 (L) MCV 01/05/2024 96.4 MCH 01/05/2024 30.7 MCHC 01/05/2024 31.9 (L) RDW 01/05/2024 16.6 (H) Platelets 01/05/2024 254 Imaging and other tests ECG 06/22/2024: Normal sinus rhythm Normal ECG Echo 06/13/2024: Left Ventricle: The left ventricle is normal size. Global left ventricular systolic function is normal. The calculated Biplane EF is 65 %. Left ventricular wall thickness is increased. No regional wall motion abnormality. Unable to assess diastolic dysfunction. Concentric cardiac remodeling. Right Ventricle: The right ventricle appears normal in size. Right ventricular systolic function appears normal. Unable to assess right sided pressures due to lack of measurable tricuspid regurgitation. Left Atrium: The left atrium is normal in size. Overall Conclusions: Due to suboptimal imaging Lumason contrast was administered for opacification and better delineation of endocardial borders. No significant valvular abnormalities STRESS REPORT 06/13/24: Positive perfusion stress test for ischemia, Abnormal myocardial perfusion with soft tissue artifact, Anterolateral reversible perfusion defect abnormalities consistent with ischemia, Normal global left ventricular function with EF 63%, No transient ischemia dilatation. Negative Lexiscan ECG stress test for ischemia. Minimal Coronary calcification is seen on attenuation C EKG 06/14/2023: Normal sinus rhythm. T wave abnormality, consider inferior ischemia Abnormal ECG. When compared with ECG of 07-APR-2022 13:33, T wave inversion now evident in Inferior lead. T wave inversion less evident in Lateral Stress test 06/14/2023: Negative perfusion stress test for ischemia, Normal myocardial perfusion with soft tissue artifact, Normal global left ventricular function with EF 56%, No transient ischemia dilatation and Negative Lexiscan ECG stress test for ischemia Stress test 05/01/2022: Negative perfusion stress test for ischemia, Normal myocardial perfusion with soft tissue artifact, Normal global left ventricular function with EF 58%, No transient ischemia dilatation and No ischemic ECG changes were seen. Cardiac catheterization 07/15/2018: Normal coronary arteries. Normal left ventricular function. Stress test 06/16/2018: ??? Mildly hypocontractile left ventricle, ejection fraction 43% with regional wall motion abnormalities as described. ??? Evidence for inferolateral infarct but no evidence of ischemia. ??? This is an intermediate risk study. Stress ECG Findings: There is [address] depression in the inferior leads (II, III and aVF). ST deviation began at 3 minute(s) ending at 6 minute(s) of There were no arrhythmias during stress. Assessment/Plan Diagnoses and all orders for this visit: Preop cardiovascular exam - ECG 12 lead; Future - Basic metabolic panel; Future - CBC and differential; Future - Case Request Special Trackwork Blacksmith: Right heart cath, Coronary angiography Cardiovascular stress test abnormal - Case Request Special Trackwork Blacksmith: Right heart cath, Coronary angiography - aspirin 81 mg chewable tablet; Chew 1 tablet (81 mg) in the morning. Primary hypertension Mixed hyperlipidemia ESRD (end stage renal disease) on dialysis ([facility]) This is a 54 yo man with ESRD on dialysis being considered for renal transplantation. He has multiple risk factors for CAD. His echocardiogram showed normal ventricular and valvular function. His stress test showed anterolateral ischemia. I will proceed with cardiac catheterization with right heart catheterization and coronary angiography given abnormal stress test and preoperative status for non-cardiac surgery. I have explained to him the procedure with risks and benefits, including risks of heart attack, stroke and , as well as contrast nephropathy and radiation injury. he understands and agrees. I will proceed from the right common femoral artery and vein access site. I will start him on aspirin 81 mg daily. I will see him in follow up after the procedure. No follow-ups on file. Mali Alvarez MD FOLLOW-UP Observed: 06/22/2024 2:20 PM Status: COMPLETED Source: [facility] REPOSITORY [id number] Evans Forte 0 1970 M Date Provider Department Center 06/22/2024 [facility] [place] Heart[facility] Family History Problem Relation Age of Onset Breast cancer Mother Comments: age 53, METS to brain Heart disease Father Heart attack Father Comments: age 26 No Known Problems Sister Comments: half-sister Crohn's disease Daughter Comments: perforated bowel Family Status - Relation Status Age at Mother Father Sister Daughter Level of Service:09453 UT OFFICE/OUTPATIENT NEW HIGH MDM 60 MINUTES Reason for Visit and Comments: Cardiac evaluation for transplant [Other] - Follow for abnormal stress done 06/13/2024 ANES Observed: 06/20/2024 12:30 PM Status: COMPLETED Source: [facility] REPOSITORY Patient: Evans Forte Procedure Summary Date: 06/20/24 Room / Location: [facility] Invasive Surgery [place] Anesthesia Start: 1056 Anesthesia Stop: 1201 Procedure: SURVEILLANCE COLONOSCOPY Diagnosis: Screen for colon cancer Scheduled Providers: Jonel Henley MD; Vinay Avila MD Responsible Provider: Vinay Avila MD Anesthesia Type: MAC ASA Status: 3 Anesthesia Type: MAC Vitals Value Taken Time BP 118/55 06/20/24 1215 Temp 36 ???C (96.8 ???F) 06/20/24 1158 Pulse 63 06/20/24 1215 Resp 16 06/20/24 1215 SpO2 99 % 06/20/24 1215 Anesthesia Post Evaluation Patient location during evaluation: PACU Patient participation: complete - patient participated Level of consciousness: awake Pain management: adequate Airway patency: patent Cardiovascular status: stable Respiratory status: acceptable Hydration status: balanced Patient is hemodynamically stable and is able to be discharged from PACU per anesthesia protocol. No notable events documented. HP Observed: 06/20/2024 12:00 PM Status: COMPLETED Source: [facility] REPOSITORY H&P reviewed. The patient wa s examined and there are no changes to the H&P. Here for surveillance colonoscopy with hx of multiple and large polyps in 2021 and poor prep. NURSNOTE Observed: 06/20/2024 11:55 AM Status: COMPLETED Source: [facility] REPOSITORY All positioning devices jim nato pt remains supine. HISTOLOGY - TISSUE EXAM Collected: 06/06 11:41 AM Status: UNK Source: [facility] REPOSITORY TYPE CODE TESTS RESULT OUT OF RANGE REFERENCE UNITS PATHOLOGY 1499 LAB AP CASE REPORT Result Comment: Surgical Pat hology Case: [id number] Authorizing Provider: Jonel Henley MD Collected: 06/20/2024 1141 Ordering Location: [facility] Received: 06/20/2024 1309 Invasive Surgery Center Pathologist: Carly Beard MD Specimen: Rectum, RECTUM POLYP PATHOLOGY 34 LAB AP REPORT FINAL DIAGNOSIS NARRATIVE Result Comment: A. Colon, re ctal polyp, polypectomy: - Fragments of colonic mucosa with early hyperplastic changes and lymphoid aggregate. - Negative for dysplasia. OLOGY 29 LAB AP CLINICAL INFORMATION Order Diagnoses Result Comment: Z12.11 - Scr een for colon cancer [ICD-10-CM] PATHOLOGY [id number] LAB AP GROSS DESCRIPTION A. Rectum. Result Comment: The specimen is received in formalin in a container labeled Evans Forte and RECTUM POLYP. It consists of 2 burns-butcher, ragged, focally erythematous soft tissue strips, 1.2 x 0.5 cm and 2.3 x 0.5 cm. Also in the container is vegetative/fecal particles and mucoid material that is retained. The specimen is submitted entirely in 1 cassette. Yohana Toscano, student fellow PATHOLOGY 32 LAB AP MICROSCOPIC DESCRIPTION Microscopic examination performed. Performed By: #### [id number] # ### [facility] [address] [place] [address] POCT PERFUSION PANEL UNSOLICITED RESULTS Collected: 06/20/2024 10:35 AM Status: UNK Source: [facility] REPOSITORY TYPE CODE TESTS RESULT OUT OF RANGE REFERENCE UNITS LAB 969 POCT SO2 LAB 2922430 POCT SODIUM LAB 0508723 POCT POTASSIUM 4.4 3.5-4.9 mmol/L LAB 966 POCT PO2 LAB 900 POCT PH LAB 201 POCT TOTAL CO2 LAB 877 POCT IONIZED CALCIUM LAB 970 POCT HEMATOCRIT LAB 864 POCT HEMOGLOBIN LAB 855 POCT BASE EXCESS LAB 885 POCT GLUCOSE 114 High 70-105 mg/dL LAB 968 POCT HCO3 LAB 1814 POCT PCO2 Performed By: #### [id number] #### [facility] [address] [place] [address] ANES Observed: 06/20/2024 10:32 AM Status: COMPLETED Source: [facility] REPOSITORY Patient: Evans Forte Procedure Information Date/Time: 06/20/24 1200 Scheduled providers: Jonel Henley MD; Vinay Avila MD Procedure: SURVEILLANCE COLONOSCOPY Location: [facility] Invasive [facility] [place] Relevant Problems Anesthesia (+) Obstructive sleep apnea syndrome Cardio (+) Essential hypertension Endo (+) Acquired hypothyroidism (+) Type 2 diabetes mellitus (CMS/HCC) /Renal (+) End stage renal disease (CMS/HCC) Other (+) Charcot's joint of foot (+) Osteomyelitis ([facility]/HCC) (+) Osteomyelitis of left foot ([facility]/HCC) Clinical information reviewed: Tobacco Allergies Meds Med Hx Surg Hx Fam Hx Soc Hx Physical Exam Airway Mallampati: II TM distance: >3 FB Neck ROM: full Cardiovascular Rhythm: regular Rate: normal Dental - normal exam Pulmonary Breath sounds clear to auscultation Abdominal - normal exam Anesthesia Plan ASA 3 MAC intravenous induction Anesthetic plan and risks discussed with patient. Use of blood products discussed with who consented to blood products. Plan discussed with resident. Additional Equipment Requests PREP FOR PROCEDURE Observed: 06/20/2024 12:00 AM Status: COMPLETED Source: [facility] REPOSITORY [id number] JannEvans armstrong 0 1970 M Date Provider Department Center 06/20/2024 JONEL [facility]ERR[facility] Family History Problem Relation Age of Onset Breast cancer Mother Comments: age 53, METS to brain Heart disease Father Heart attack Father Comments: age 26 No Known Problems Sister Comments: half-sister Crohn's disease Daughter Comments: perforated bowel Family Status - Relation Status Age at Mother Father Sister Daughter PREP FOR PROCEDURE Observed: 06/20/2024 12:00 AM Status: COMPLETED Source: [facility] REPOSITORY [id number] Evans Forte 1970 M Date Provider Department Center 06/20/2024 [facility] [place] Family History Problem Relation Age of Onset Breast cancer Mother Comments: age 53, METS to brain Heart disease Father Heart attack Father Comments: age 26 No Known Problems Sister Comments: half-sister Crohn's disease Daughter Comments: perforated bowel Family Status - Relation Status Age at Mother Father Sister Daughter 36 Observed: 06/14/2024 8:26 AM Status: COMPLETED Source: [facility] REPOSITORY Patient called TC to discuss recent cardiac testing from yesterday and remaining workup requirements: he is due for transplant re-evaluation as of May 2024, has a colonoscopy scheduled for 06/20/24, and patient was previously cleared by podiatry in February of 2023, but recently underwent wound debridement of ulceration site on right heel and 1st MPJ that is improving, but had not totally healed yet so updated podiatry clearance is needed. 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 Patient stated understanding and scheduled his TE Re-eval for 07/11/24 and asked to be added to the cancellation list for any sooner appointments on Tuesdays and . TC confirmed and sent patient, referring MD and dialysis unit a letter. PROGRESS Observed: 06/13/2024 10:46 AM Status: COMPLETED Source: [facility] REPOSITORY Medication resent to patient s preferred pharmacy as requested. PREP FOR PROCEDURE Observed: 06/13/2024 12:00 AM Status: COMPLETED Source: [facility] REPOSITORY [id number] Evans Forte 0 1970 M Date Provider Department Center 06/13/2024 JONEL FERRARO [facility] Family History Problem Relation Age of Onset Breast cancer Mother Comments: age 53, METS to brain Heart disease Father Heart attack Father Comments: age 26 No Known Problems Sister Comments: half-sister Crohn's disease Daughter Comments: perforated bowel Family Status - Relation Status Age at Mother Father Sister Daughter ORDERS ONLY Observed: 06/13/2024 12:00 AM Status: COMPLETED Source: [facility] REPOSITORY [id number] Evans Forte 0 1970 M Date Provider Department Center [id number] Family History Problem Relation Age of Onset Breast cancer Mother Comments: age 53 Heart disease Father Heart attack Father Comments: age 26 No Known Problems Sister Comments: half-sister Crohn's disease Daughter Comments: perforated bowel Family Status - Relation Status Age at Mother Father Sister Daughter FOLLOW-UP Observed: 05/26/2024 11:30 AM Status: COMPLETED Source: [facility] REPOSITORY [id number] Evans Forte 1970 M Date Provider Department Center 05/26/2024 [facility] [place] [facility] Family History Problem Relation Age of Onset Breast cancer Mother Comments: age 53 Heart disease Father Heart attack Father Comments: age 26 No Known Problems Sister Comments: half-sister Crohn's disease Daughter Comments: perforated bowel Family Status - Relation Status Age at Mother Father Sister Daughter Level of Service:37879 UT OFFICE/OUTPATIENT ESTABLISHED MOD MDM 30 MIN Reason for Visit and Comments: Follow-up [[id number]] - Lab results HP Observed: 05/26/2024 11:30 AM Status: COMPLETED Source: [facility] REPOSITORY Subjective Patient ID: Evans Forte is a 54 y.o. male who presents for Follow-up (Lab results ). HPI 9..24 Pt here for office visit with his . Pt established with Dr Clay for hypogonadism, ED and pending Renal Transplant list. Pt is having wound care to right foot at this time. ESRD treated with Dialysis 3 x week locally in [place]. Pt labs reviewed: T Levels: 05/23/24 373 01/05/24: 293; 06/03/23: 330; 04/27/23: 397; 03/25/23: 470; 02/23/23: 556; 11/18/2022; 129 04/07/22 178 Estradial: 05/23/24 5 01/05/24 29; 05/31/23: 17; 03/25/23: 15.4; 02/23/23: 22.6 PSA: .. 2.3 01/05/24 0.5; 06/03/23: 1.0; 04/27/23: 2.3; 11/18/21: 0.3 Patient is using Androgel (2 pumps) 1x day; Arimidex 1mg Symptoms: improvement in energy, ED remains. No fever or chills. No dysuria. No hematuria. No abd/flank pain. Collaborative case discussion with Dr Dimitris Henderson on elevated PSA. Order: Repeat labs in [address] up [address] Clay. Continue meds. Plan: Follow up 3 months with repeat labs: CBC, Test, PSA, CMP, Estradiol. Continue meds. Visit with Dr Clay for elevated PSA x 1. Chart Review Today: 01/10/24 Pt presents for office visit. Pt is established with Dr Clay for hypogonadism, ED and pending Renal Transplant list. Pt is having wound care to right foot at this time. Pt labs reviewed: -T Levels: 01/05/24: 293; 06/03/23: 330; 04/27/23: 397; 03/25/23: 470; 02/23/23: 556; 129 11/18/2022; 178 04/07/22 - Estradial: 01/05/24 29; 05/31/23: 17; 03/25/23: 15.4; 02/23/23: 22.6 - PSA: 01/05/24 0.5; 06/03/23: 1.0; 04/27/23: 2.3; 11/18/21: 0.3 -Patient is using Androgel (2 pumps) 1x day; Arimidex 1mg - symptoms: improvement in energy, ED remains. Pt has trial viagra cilias without success for ED. Pt would like to Trial Trimix. Pt given brief instructions Trimix: adverse/side effects. Order fax to [facility]. 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 No CP or SOB. No N/V/D. No abd/flank pain. Pt continues with better level of fatigue. 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 Plan: Follow up Trimix Trial with Meds. Return 3 months with morning labs 8a or 9a just prior: CMP,PSA,Testosterone, Estradial. 07.02.23 follow-up for his hypogonadism and elevated PSA. He was sent from transplant clinic due to low testosterone. HPI Hypogonadism: -T Levels: 06/03/23: 330; 04/27/23: 397; 03/25/23: 470; 02/23/23: 556; 129 11/18/2022; 178 04/07/22 - Estradial: 05/31/23: 17; 03/25/23: 15.4; 02/23/23: 22.6 - PSA: 06/03/23: 1.0; 04/27/23: 2.3; 11/18/21: 0.3 -Patient is using Androgel (2 pumps) 1x day; Arimidex 1mg - symptoms: improvement in energy, ED remains 2. CKD with ESRD 2/2 DM: -On peritoneal dialysis 10 hours nightly -Plans for kidney transplant, needs clearance -still making urine, no longer experiencing weak stream, able to empty bladder fully 3. ED -symptoms: unable to maintain an erection, unable to have intercourse -Current rx medication: Cialis 20 mg currently not working 4. Previous Elevated PSA - PSA: 06/03/23: 1.0; 04/27/23: 2.3; on TRT - 11/18/21: 0.3 - Exodus Prostate Score: 06/04/23: 26.6 - Stool culture for Fluoroquinolone resistant organism- negative 06/03/23 (06/03/23) 1. HYPOGONADISM: - T levels: 129 11/18/2022 178 04/07/22 (187) - free T levels: 40.8 04/07/22 (50.5) - Draw time: Proper AM levels - any previous readings available: As noted - previous use of testosterone or supplements: No - Prescribed Androgel at previous visit - patient was admitted to the hospital hence he did not take his AndroGel lately. Also his levels were drawn after holding the medication for 1 day. So the level of 129 as not true peak level. - Has not helped with libido, energy, focus Estradiol 21.7 11/18/2022 FSH: 2.9 11/18/2022 LH: 9.2 11/18/2022 Prolactin: 11.21 11/18/2022 SYMPTOMS: - ED: Yes - attempted intercourse with in last 3 months: Yes - using PDE5i: No - Libido: Low - JEAN-PIERRE score: 7 - Fatigue: Yes - chronic headaches: No - breast enlargement / tenderness: No - vision disturbance: No - loss of muscle mass: Yes - Anemia: Some anemia, 11.4 - iron infusions: - Erythropoietin stimulating agents 2. 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 Urination: - amount of urine made: normal - any lower urinary tract symptoms: -- weak stream, intermittency, incomplete emptying, -- frequency, urgency, nocturia - previous history of BPH : No - treatment for BPH - none medications surgery - finasteride: No - most recent PSA: 0.6 on 04/07/22 4. Neurologic symptoms: - Mood disturbances: No - depression: No - anxiety: No - Sleep disturbance: No 5. Fertility: - fathered any children in past: Yes, 1 - future plans to have kids: No - any previous fertility evaluation: No - testicular pain: No personal history of sleep apnea - use of CPAP / BIPAP 6. Erectile dysfunction - unable to achieve consistent erection - prescribed Sildenafil 100 mg at last visit - does not help - Difficulty obtaining erections family history of prostate cancer: none Review of Systems All other systems reviewed and are negative. Objective There were no vitals taken for this visit. Physical Exam Constitutional: Appearance: He is obese. HENT: Head: Normocephalic and atraumatic. Right Ear: External ear normal. Left Ear: External ear normal. Nose: Nose normal. Mouth/Throat: Mouth: Mucous membranes are moist. Pharynx: Oropharynx is clear. Eyes: Conjunctiva/sclera: Conjunctivae normal. Pulmonary: Effort: Pulmonary effort is normal. Musculoskeletal: Cervical back: Neck supple. Skin: General: Skin is warm and dry. Neurological: Mental Status: He is alert and oriented to person, place, and time. Psychiatric: Mood and Affect: Mood normal. Behavior: Behavior normal. Assessment/Plan Plan: Follow up 3 months with repeat labs: CBC, Test, PSA, CMP, Estradiol as morning lab draw. Continue meds. Next Visit with Dr Clay for elevated PSA x 1. Diagnosis Plan 1. Special screening for malignant neoplasm of prostate PSA Screening 2. Hypogonadism male CBC and differential Comprehensive metabolic panel PSA Screening Estradiol Testosterone Orders Placed This Encounter Procedures CBC and differential Standing Status: Future Standing Expiration Date: 05/26/2025 Order Specific Question: Release to Patient Answer: Immediately Comprehensive metabolic panel Standing Status: Future Standing Expiration Date: 05/26/2025 Order Specific Question: Release to Patient Answer: Immediately PSA Screening Standing Status: Future Standing Expiration Date: 05/26/2025 Order Specific Question: Release to Patient Answer: Immediately Estradiol Standing Status: Future Standing Expiration Date: 05/26/2025 Order Specific Question: Release to Patient Answer: Immediately Testosterone Standing Status: Future Standing Expiration Date: 05/26/2025 Order Specific Question: Release to Patient Answer: Immediately No results found for this or any previous visit (from the past 36 hour(s)). No follow-ups on file. PROGRESS Observed: 05/26/2024 11:30 AM Status: COMPLETED Source: [facility] REPOSITORY Subjective Patient ID: Evans Forte is a 54 y.o. male who presents for Follow-up (Lab results ). HPI 9..24 Pt here for office visit with his . Pt established with Dr Clay for hypogonadism, ED and pending Renal Transplant list. Pt is having wound care to right foot at this time. ESRD treated with Dialysis 3 x week locally in [place]. Pt labs reviewed: T Levels: 05/23/24 373 01/05/24: 293; 06/03/23: 330; 04/27/23: 397; 03/25/23: 470; 02/23/23: 556; 11/18/2022; 129 04/07/22 178 Estradial: 05/23/24 5 01/05/24 29; 05/31/23: 17; 03/25/23: 15.4; 02/23/23: 22.6 PSA: 9..24 2.3 01/05/24 0.5; 06/03/23: 1.0; 04/27/23: 2.3; 11/18/21: 0.3 Patient is using Androgel (2 pumps) 1x day; Arimidex 1mg Symptoms: improvement in energy, ED remains. No fever or chills. No dysuria. No hematuria. No abd/flank pain. Collaborative case discussion with Dr Dimitris Henderson on elevated PSA. Order: Repeat labs in [address] follow up Dr Clay. Continue meds. Plan: Follow up 3 months with repeat labs: CBC, Test, PSA, CMP, Estradiol. Continue meds. Visit with Dr Clay for elevated PSA x 1. Chart Review Today: 01/10/24 Pt presents for office visit. Pt is established with Dr Clay for hypogonadism, ED and pending Renal Transplant list. Pt is having wound care to right foot at this time. Pt labs reviewed: -T Levels: 01/05/24: 293; 06/03/23: 330; 04/27/23: 397; 03/25/23: 470; 02/23/23: 556; 129 11/18/2022; 178 04/07/22 - Estradial: 01/05/24 29; 05/31/23: 17; 03/25/23: 15.4; 02/23/23: 22.6 - PSA: 01/05/24 0.5; 06/03/23: 1.0; 04/27/23: 2.3; 11/18/21: 0.3 -Patient is using Androgel (2 pumps) 1x day; Arimidex 1mg - symptoms: improvement in energy, ED remains. Pt has trial viagra cilias without success for ED. Pt would like to Trial Trimix. Pt given brief instructions Trimix: adverse/side effects. Order fax to [facility]. 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 No CP or SOB. No N/V/D. No abd/flank pain. Pt continues with better level of fatigue. 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 Plan: Follow up Trimix Trial with Meds. Return 3 months with morning labs 8a or 9a just prior: CMP,PSA,Testosterone, Estradial. 07.02.23 follow-up for his hypogonadism and elevated PSA. He was sent from transplant clinic due to low testosterone. HPI Hypogonadism: -T Levels: 06/03/23: 330; 04/27/23: 397; 03/25/23: 470; 02/23/23: 556; 129 11/18/2022; 178 04/07/22 - Estradial: 05/31/23: 17; 03/25/23: 15.4; 02/23/23: 22.6 - PSA: 06/03/23: 1.0; 04/27/23: 2.3; 11/18/21: 0.3 -Patient is using Androgel (2 pumps) 1x day; Arimidex 1mg - symptoms: improvement in energy, ED remains 2. CKD with ESRD 2/2 DM: -On peritoneal dialysis 10 hours nightly -Plans for kidney transplant, needs clearance -still making urine, no longer experiencing weak stream, able to empty bladder fully 3. ED -symptoms: unable to maintain an erection, unable to have intercourse -Current rx medication: Cialis 20 mg currently not working 4. Previous Elevated PSA - PSA: 06/03/23: 1.0; 04/27/23: 2.3; on TRT - 11/18/21: 0.3 - Exodus Prostate Score: 06/04/23: 26.6 - Stool culture for Fluoroquinolone resistant organism- negative 06/03/23 (06/03/23) 1. HYPOGONADISM: - T levels: 129 11/18/2022 178 04/07/22 (187) - free T levels: 40.8 04/07/22 (50.5) - Draw time: Proper AM levels - any previous readings available: As noted - previous use of testosterone or supplements: No - Prescribed Androgel at previous visit - patient was admitted to the hospital hence he did not take his AndroGel lately. Also his levels were drawn after holding the medication for 1 day. So the level of 129 as not true peak level. - Has not helped with libido, energy, focus Estradiol 21.7 11/18/2022 FSH: 2.9 11/18/2022 LH: 9.2 11/18/2022 Prolactin: 11.21 11/18/2022 SYMPTOMS: - ED: Yes - attempted intercourse with in last 3 months: Yes - using PDE5i: No - Libido: Low - JEAN-PIERRE score: 7 - Fatigue: Yes - chronic headaches: No - breast enlargement / tenderness: No - vision disturbance: No - loss of muscle mass: Yes - Anemia: Some anemia, 11.4 - iron infusions: - Erythropoietin stimulating agents 2. 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 Urination: - amount of urine made: normal - any lower urinary tract symptoms: -- weak stream, intermittency, incomplete emptying, -- frequency, urgency, nocturia - previous history of BPH : No - treatment for BPH - none medications surgery - finasteride: No - most recent PSA: 0.6 on 04/07/22 4. Neurologic symptoms: - Mood disturbances: No - depression: No - anxiety: No - Sleep disturbance: No 5. Fertility: - fathered any children in past: Yes, 1 - future plans to have kids: No - any previous fertility evaluation: No - testicular pain: No personal history of sleep apnea - use of CPAP / BIPAP 6. Erectile dysfunction - unable to achieve consistent erection - prescribed Sildenafil 100 mg at last visit - does not help - Difficulty obtaining erections family history of prostate cancer: none Review of Systems All other systems reviewed and are negative. Objective There were no vitals taken for this visit. Physical Exam Constitutional: Appearance: He is obese. HENT: Head: Normocephalic and atraumatic. Right Ear: External ear normal. Left Ear: External ear normal. Nose: Nose normal. Mouth/Throat: Mouth: Mucous membranes are moist. Pharynx: Oropharynx is clear. Eyes: Conjunctiva/sclera: Conjunctivae normal. Pulmonary: Effort: Pulmonary effort is normal. Musculoskeletal: Cervical back: Neck supple. Skin: General: Skin is warm and dry. Neurological: Mental Status: He is alert and oriented to person, place, and time. Psychiatric: Mood and Affect: Mood normal. Behavior: Behavior normal. Assessment/Plan Plan: Follow up 3 months with repeat labs: CBC, Test, PSA, CMP, Estradiol as morning lab draw. Continue meds. Next Visit with Dr Clay for elevated PSA x 1. Diagnosis Plan 1. Special screening for malignant neoplasm of prostate PSA Screening 2. Hypogonadism male CBC and differential Comprehensive metabolic panel PSA Screening Estradiol Testosterone Orders Placed This Encounter Procedures CBC and differential Standing Status: Future Standing Expiration Date: 05/26/2025 Order Specific Question: Release to Patient Answer: Immediately Comprehensive metabolic panel Standing Status: Future Standing Expiration Date: 05/26/2025 Order Specific Question: Release to Patient Answer: Immediately PSA Screening Standing Status: Future Standing Expiration Date: 05/26/2025 Order Specific Question: Release to Patient Answer: Immediately Estradiol Standing Status: Future Standing Expiration Date: 05/26/2025 Order Specific Question: Release to Patient Answer: Immediately Testosterone Standing Status: Future Standing Expiration Date: 05/26/2025 Order Specific Question: Release to Patient Answer: Immediately No results found for this or any previous visit (from the past 36 hour(s)). No follow-ups on file. ORDERS ONLY Observed: 05/24/2024 12:00 AM Status: COMPLETED Source: [facility] REPOSITORY [id number] Evans Forte B 0 1970 M Date Provider Department Center 05/24/2024 [facility] Family History Problem Relation Age of Onset Breast cancer Mother Comments: age 53 Heart disease Father Heart attack Father Comments: age 26 No Known Problems Sister Comments: half-sister Crohn's disease Daughter Comments: perforated bowel Family Status - Relation Status Age at Mother Father Sister Daughter LAB Observed: 05/23/2024 8:25 AM Status: COMPLETED Source: [facility] REPOSITORY [id number] Evans Forte 0 1970 M Date Provider Department Center 05/23/2024 2244-[facility] MP LAB RESOURCE MP DRAW Medical Pavi Family History Problem Relation Age of Onset Breast cancer Mother Comments: age 53 Heart disease Father Heart attack Father Comments: age 26 No Known Problems Sister Comments: half-sister Crohn's disease Daughter Comments: perforated bowel Family Status - Relation Status Age at Mother Father Sister Daughter ESTRADIOL Collected: 8:24 AM Status: UNK Source: [facility] REPOSITORY TYPE CODE TESTS RESULT OUT OF RANGE REFERENCE UNITS LAB [id number] ESTRADIOL (PG/ML) IN SER/PLAS 5.0 Low 27-52 pg/mL Result Comment: FEMALES: Normally menstruating Luteal phase 60-232 Follicular phase 31-90 Midcycle phase 60-533 Postmenopausal (untreated) <138 Fulvestrant treatment will show an increased estradiol concentration with this methodology. Alternate methodologies are available upon request. Test Performed by [facility] [address] [place] [address] - Released 05/23/2024 12:54 Performed By: #### [id number] ## ## [facility] [address] [place] [address] COMPREHENSIVE METABOLIC PANEL Collected: 05/23/2024 8 :24 AM Status: UNK Source: [facility] REPOSITORY TYPE CODE TESTS RESULT OUT OF RANGE REFERENCE UNITS LAB [id number] SODIUM (MMOL/L) IN SER/PLAS 139 136-145 mmol/L LAB [id number] POTASSIUM (MMOL/ L) IN SER/PLAS 4.0 3.5-5.1 mmol/L LAB [id number] CHLORIDE (MMOL/L ) IN SER/PLAS 98 98-107 mmol/L LAB [id number] CARBON DIOXIDE, TOTAL (MMOL/L) IN SER/PLAS 30 21-31 mmol/L LAB [id number] ANION GAP IN SER/PLAS 15 7-20 mmol/L LAB 2457775 UREA NITROGEN (MG/DL) IN SER/PLAS 41 High 7-25 mg/dL LAB [id number] CREATININE (MG/D L) IN SER/PLAS 6.78 High 0.70-1.30 mg/dL LAB 6187975 UREA NITROGEN/CREATININ E (MASS RATIO) IN SER/PLAS 6.0 NA LAB [id number] GLUCOSE (MG/DL) IN SER/PLAS 161 High 70-100 mg/dL LAB [id number] CALCIUM (MG/DL) IN SER/PLAS 9.6 8.6-10.3 mg/dL LAB 8489138 ASPARTATE AMINOTRANSFERASE (SGOT) (U/L) IN SER/PLAS 15 13-39 U/L LAB 0068729 ALANINE AMINOTRANSFERASE (SGPT) (U/L) IN SER/PLAS 25 7-52 U/L LAB [id number] ALKALINE PHOSPHATASE (U/L) IN SER/PLAS 123 High 34-104 U/L LAB 3513544 PROTEIN (G/DL) I N SER/PLAS 8.0 6.0-8.3 g/dL LAB 1345590 ALBUMIN (G/DL) I N SER/PLAS 4.5 3.5-5.7 g/dL LAB [id number] BILIRUBIN TOTAL (MG/DL) IN SER/PLAS 0.6 0.3-1.0 mg/dL LAB 6579102 GLOMERULAR FILTRATION RATE ML/MIN/1.73 SQ M.PREDICTED 9.1 Low >60.0 mL/min /1.73m *2 Result Comment: The [facility]???s estimated glomerular filtration rate (eGFR) will no longer include consideration of race in its calculation. The National Kid[employer] Foundation???s eGFR Task Force developed new recommendations for the estimation of the glomerular filtration rate in the [place] They recommend immediate implementation of the new equation refit without the race variable in all laboratories because the calculation does not include race. In addition to not including race in the calculation and reporting, it included diversity in its development, and has acceptable performance characteristics and potential consequences that do not disproportionately affect any one group of individuals. Performed By: #### [id number] ### # [facility] [address] [place] [address] PSA, SCREENING Collected: 05/23/2024 8:24 AM Status: UNK Source: [facility] REPOSITORY TYPE CODE TESTS RESULT OUT OF RANGE REFERENCE UNITS LAB [id number] PROSTATE SPECIFIC AG (NG/ML) IN SER/PLAS 2.3 0.4-4 ng/mL Performed By: #### [id number] ## ## [facility] [address] [place] [address] TESTOSTERONE Collected: 05/23/2024 8:24 AM Status: U NK Source: [facility] REPOSITORY TYPE CODE TESTS RESULT OUT OF RANGE REFERENCE UNITS LAB [id number] TESTOSTERONE (NG/DL) IN SER/PLAS 373 193-740 ng/dL Result Comment: Test Perform ed by [facility] [address] [place] [id number] - Released 05/23/2024 12:54 Performed By: #### [id number] ## ## [facility] [address] [place] [address] CBC WITH AUTO DIFFERENTIAL Collected: 05/23/2024 8:24 AM Status: UNK Source: [facility] REPOSITORY TYPE CODE TESTS RESULT OUT OF RANGE REFERENCE UNITS LAB [id number] LEUKOCYTES(10*3/ UL) IN BLOOD BY AUTOMATED COUNT 11.51 High 4.00-10.60 10*3/uL LAB 8326071 ERYTHROCYTES (10*6/UL) IN BLOOD BY AUTOMATED COUNT 4.48 4.20-5.70 10*6/uL LAB 4023362 HEMOGLOBIN (G/DL) IN BLOOD 13.5 13.0-17.0 g/dL LAB 1800575 HEMATOCRIT (%) IN BLOOD BY AUTOMATED COUNT 41.7 39.0-55.0 % LAB 7497442 ERYTHROCYTE MEAN CORPUSCULAR VOLUME (FL) BY AUTOMATED COUNT 93.1 82.0-98.0 fL LAB 8788430 ERYTHROCYTE MEAN CORPUSCULAR HEMOGLOBIN (PG) BY AUTOMATED COUNT 30.1 27.0-33.0 pg LAB 9183707 ERYTHROCYTE MEAN CORPUSCULAR HEMOGLOBIN CONCENTRATION (G/DL) BY AUTOMATED 32.4 32.0-35.0 g/dL LAB 6810093 ERYTHROCYTE DISTRIBUTION WIDTH (RATIO) BY AUTOMATED COUNT 13.7 11.5-15.0 % LAB 8856472 NEUTROPHILS/100 LEUKOCYTES IN BLOOD BY AUTOMATED COUNT 71.7 40.0-72.0 % LAB 1493982 LYMPHOCYTES/100 LEUKOCYTES IN BLOOD BY AUTOMATED COUNT 16.7 Low 20.0-45.0 % LAB 6376050 MONOCYTES/100 LEUKOCYTES IN BLOOD BY AUTOMATED COUNT 6.9 5.0-12.0 % LAB 4409216 EOSINOPHILS/100 LEUKOCYTES IN BLOOD BY AUTOMATED COUNT 3.1 0.0-6.0 % LAB 4578831 BASOPHILS/100 LEUKOCYTES IN BLOOD BY AUTOMATED COUNT 0.5 0.0-1.0 % LAB [id number] NEUTROPHILS (10*3/UL) IN BLOOD BY AUTOMATED COUNT 8.25 High 1.60-7.60 10*3/uL LAB 1545060 LYMPHOCYTES (10*3/UL) IN BLOOD BY AUTOMATED COUNT 1.92 1.20-4.00 10*3/uL LAB 8643321 MONOCYTES (10*3/UL) IN BLOOD BY AUTOMATED COUNT 0.79 0.10-1.00 10*3/uL LAB 3595730 EOSINOPHILS (10*3/UL) IN BLOOD BY AUTOMATED COUNT 0.36 0.00-0.50 10*3/uL LAB 9001750 BASOPHILS (10*3/UL) IN BLOOD BY AUTOMATED COUNT 0.06 0.00-0.20 10*3/uL LAB 5728613 PLATELETS (10*3/UL) IN BLOOD AUTOMATED COUNT 332 150-400 10*3/uL LAB 254 NRBC (PER 100 WBCS) BY AUTOMATED COUNT 0.0 0 % LAB 1767 IMMATURE GRANULOCYTES/100 LEUKOCYTES IN BLOOD BY AUTOMATED COUNT 1.1 High 0.0-1.0 % LAB 1768 IMMATURE GRANULOCYTES (10*3/UL) IN BLOOD BY AUTOMATED COUNT 0.13 0.00-0.20 10*3/uL Performed By: #### [id number] # ### [facility] [address] [place] [address] REFILL Observed: 05/02/2024 12:00 AM Status: COMPLETED Source: [facility] REPOSITORY [id number] Evans Forte 0 1970 M Date Provider Department Center 05/02/2024 [facility] Family History Problem Relation Age of Onset Breast cancer Mother Comments: age 53 Heart disease Father Heart attack Father Comments: age 26 No Known Problems Sister Comments: half-sister Crohn's disease Daughter Comments: perforated bowel Family Status - Relation Status Age at Mother Father Sister Daughter Reason for Visit and Comments: Med Refill [[id number]] PROGRESS Observed: 04/28/2024 11:04 AM Status: COMPLETED Source: [facility] REPOSITORY Patient LVM for TC asking in quiring about scheduling transplant re-evaluation and orders for updated stress test and colonoscopy. TC LVM for patient to discuss available dates and times and if he wants to complete the stress and colonoscopy here at [facility] or locally in [place]. Awaiting response. 36 Observed: 02/22/2024 2:23 PM Status: COMPLETED Source: [facility] REPOSITORY Called patient and left mess age informing him of Dr. Henley's response below: His last colonoscopy was 09/03/22 at which time I recommended repeat in 1 year due to poor prep and he had sizable polyps. Based on the size he needs a 1 year repeat and at the furthest interval based on size his next should be in 5 years or less depending on the results of his 1 year repeat 36 Observed: 02/22/2024 1:59 PM Status: COMPLETED Source: [facility] REPOSITORY Patient would like update ho w often it was suggested to have a colonoscopy surveillance. He is working on becoming a kidney transplant donor. Last colonoscopy was done 06/2022. Please call to update with patient [phone]. Thank you This phone message was created by the Ambulatory float staff. If you need client support analyst follow up regarding this patient, please make your appropriate clinic staff member aware. Thank you. 36 Observed: 02/09/2024 10:51 AM Status: COMPLETED Source: [facility] REPOSITORY Patient called to find out w hat all he needs to finish his work up. Patient stated he is working on healing the ulcer and he knows that needs done. Coordinator let him know that he needs to repeat the colonoscopy and he stated he was told by GI it was good for 3 years. Coordinator let him know that the report we have said to repeat in a year due to poor prep.He was encouraged to call the GI office and ask and it good they need to send a note or he will need to repeat. Patient verbalized understanding. Maria De Jesus Rutledge RN FOLLOW-UP Observed: 2024 1:45 PM Status: COMPLETED Source: [facility] REPOSITORY [id number] Evans Forte 0 1970 M Date Provider Department Center 2024 124[facility] Family History Problem Relation Age of Onset Breast cancer Mother Comments: age 53 Heart disease Father Heart attack Father Comments: age 26 No Known Problems Sister Comments: half-sister Crohn's disease Daughter Comments: perforated bowel Family Status - Relation Status Age at Mother Father Sister Daughter Level of Service:06313 UT OFFICE/OUTPATIENT ESTABLISHED MOD MDM 30 MIN Reason for Visit and Comments: Follow-up [[id number]] - 4 mo fu PROGRESS Observed: 2024 1:45 PM Status: COMPLETED Source: [facility] REPOSITORY Subjective Patient ID: Evans Shen Jann is a 53 y.o. male who presents for Follow-up (4 mo fu ). HPI 01/10/24 Pt presents for office visit. Pt is established with Dr Clay for hypogonadism, ED and pending Renal Transplant list. Pt is having wound care to right foot at this time. Pt labs reviewed: -T Levels: 01/05/24: 293; 06/03/23: 330; 04/27/23: 397; 03/25/23: 470; 02/23/23: 556; 129 11/18/2022; 178 04/07/22 - Estradial: 01/05/24 29; 05/31/23: 17; 03/25/23: 15.4; 02/23/23: 22.6 - PSA: 01/05/24 0.5; 06/03/23: 1.0; 04/27/23: 2.3; 11/18/21: 0.3 -Patient is using Androgel (2 pumps) 1x day; Arimidex 1mg - symptoms: improvement in energy, ED remains. Pt has trial viagra cilias without success for ED. Pt would like to Trial Trimix. Pt given brief instructions Trimix: adverse/side effects. Order fax to [facility]. 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 No CP or SOB. No N/V/D. No abd/flank pain. Pt continues with better level of fatigue. 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 Plan: Follow up Trimix Trial with Meds. Return 3 months with morning labs 8a or 9a just prior: CMP,PSA,Testosterone, Estradial. Chart Reviewed Today: 07.02.23 follow-up for his hypogonadism and elevated PSA. He was sent from transplant clinic due to low testosterone. HPI Hypogonadism: -T Levels: 06/03/23: 330; 04/27/23: 397; 03/25/23: 470; 02/23/23: 556; 129 11/18/2022; 178 04/07/22 - Estradial: 05/31/23: 17; 03/25/23: 15.4; 02/23/23: 22.6 - PSA: 06/03/23: 1.0; 04/27/23: 2.3; 11/18/21: 0.3 -Patient is using Androgel (2 pumps) 1x day; Arimidex 1mg - symptoms: improvement in energy, ED remains 2. CKD with ESRD 2/2 DM: -On peritoneal dialysis 10 hours nightly -Plans for kidney transplant, needs clearance -still making urine, no longer experiencing weak stream, able to empty bladder fully 3. ED -symptoms: unable to maintain an erection, unable to have intercourse -Current rx medication: Cialis 20 mg currently not working 4. Previous Elevated PSA - PSA: 06/03/23: 1.0; 04/27/23: 2.3; on TRT - 11/18/21: 0.3 - Exodus Prostate Score: 06/04/23: 26.6 - Stool culture for Fluoroquinolone resistant organism- negative 06/03/23 HISTORICAL (06/03/23) 1. HYPOGONADISM: - T levels: 129 11/18/2022 178 04/07/22 (187) - free T levels: 40.8 04/07/22 (50.5) - Draw time: Proper AM levels - any previous readings available: As noted - previous use of testosterone or supplements: No - Prescribed Androgel at previous visit - patient was admitted to the hospital hence he did not take his AndroGel lately. Also his levels were drawn after holding the medication for 1 day. So the level of 129 as not true peak level. - Has not helped with libido, energy, focus Estradiol 21.7 11/18/2022 FSH: 2.9 11/18/2022 LH: 9.2 11/18/2022 Prolactin: 11.21 11/18/2022 SYMPTOMS: - ED: Yes - attempted intercourse with in last 3 months: Yes - using PDE5i: No - Libido: Low - JEAN-PIERRE score: 7 - Fatigue: Yes - chronic headaches: No - breast enlargement / tenderness: No - vision disturbance: No - loss of muscle mass: Yes - Anemia: Some anemia, 11.4 - iron infusions: - Erythropoietin stimulating agents 2. 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 Urination: - amount of urine made: normal - any lower urinary tract symptoms: -- weak stream, intermittency, incomplete emptying, -- frequency, urgency, nocturia - previous history of BPH : No - treatment for BPH - none medications surgery - finasteride: No - most recent PSA: 0.6 on 04/07/22 4. Neurologic symptoms: - Mood disturbances: No - depression: No - anxiety: No - Sleep disturbance: No 5. Fertility: - fathered any children in past: Yes, 1 - future plans to have kids: No - any previous fertility evaluation: No - testicular pain: No personal history of sleep apnea - use of CPAP / BIPAP 6. Erectile dysfunction - unable to achieve consistent erection - prescribed Sildenafil 100 mg at last visit - does not help - Difficulty obtaining erections family history of prostate cancer: none Review of Systems Genitourinary: ED All other systems reviewed and are negative. Objective There were no vitals taken for this visit. Physical Exam Constitutional: Appearance: He is obese. HENT: Head: Normocephalic and atraumatic. Right Ear: External ear normal. Left Ear: External ear normal. Nose: Nose normal. Mouth/Throat: Mouth: Mucous membranes are moist. Pharynx: Oropharynx is clear. Eyes: Conjunctiva/sclera: Conjunctivae normal. Pulmonary: Effort: Pulmonary effort is normal. Abdominal: Palpations: Abdomen is soft. Musculoskeletal: General: Normal range of motion. Cervical back: Normal range of motion. Skin: General: Skin is warm and dry. Neurological: Mental Status: He is alert and oriented to person, place, and time. Psychiatric: Mood and Affect: Mood normal. Behavior: Behavior normal. Assessment/Plan Plan: Follow up Trimix Trial with Meds. Return 3 months with morning labs 8a or 9a just prior: CMP,PSA,Testosterone, Estradial. Diagnosis Plan 1. Screening for prostate cancer PSA Screening 2. Hypogonadism male CBC and differential Comprehensive metabolic panel Testosterone Estradiol anastrozole (Arimidex) 1 mg chemo tablet Orders Placed This Encounter Procedures CBC and differential Standing Status: Future Standing Expiration Date: 01/09/2025 Order Specific Question: Release to Patient Answer: Immediately PSA Screening Standing Status: Future Standing Expiration Date: 01/09/2025 Order Specific Question: Release to Patient Answer: Immediately Comprehensive metabolic panel Standing Status: Future Standing Expiration Date: 01/09/2025 Order Specific Question: Release to Patient Answer: Immediately Testosterone Standing Status: Future Standing Expiration Date: 01/09/2025 Order Specific Question: Release to Patient Answer: Immediately Estradiol Standing Status: Future Standing Expiration Date: 01/09/2025 Order Specific Question: Release to Patient Answer: Immediately No results found for this or any previous visit (from the past 36 hour(s)). No follow-ups on file. LAB Observed: 01/05/2024 10:10 AM Status: COMPLETED Source: [facility] REPOSITORY [id number] JannEvans Shen 0 1970 M Date Provider Department Center 01/05/2024 2244-[facility] [place] MP LAB RESOURCE MP DRAW Medical Pavi Family History Problem Relation Age of Onset Breast cancer Mother Comments: age 53 Heart disease Father Heart attack Father Comments: age 26 No Known Problems Sister Comments: half-sister Crohn's disease Daughter Comments: perforated bowel Family Status - Relation Status Age at Mother Father Sister Daughter TESTOSTERONE Collected: 01/05/2024 10:07 AM Status: UNK Source: [facility] REPOSITORY TYPE CODE TESTS RESULT OUT OF RANGE REFERENCE UNITS LAB [id number] TESTOSTERONE (NG/DL) IN SER/PLAS 293 193-740 ng/dL Result Comment: Test Perform ed by [facility] [address] [place] [id number] - Released 01/05/2024 20:39 Performed By: #### [id number] ## ## [facility] [address] [place] [address] ESTRADIOL Collected: 10:07 AM Status: UNK Source: [facility] REPOSITORY TYPE CODE TESTS RESULT OUT OF RANGE REFERENCE UNITS LAB [id number] ESTRADIOL (PG/ML) IN SER/PLAS 29.0 27-52 pg/mL Result Comment: FEMALES: Normally menstruating Luteal phase 60-232 Follicular phase 31-90 Midcycle phase 60-533 Postmenopausal (untreated) <138 Fulvestrant treatment will show an increased estradiol concentration with this methodology. Alternate methodologies are available upon request. Test Performed by [facility] [address] [place] [id number] - Released 01/06/2024 00:43 Performed By: #### [id number] ## ## [facility] [address] [place] [address] CBC Collected: 01/05/2024 10:07 AM Status: U NK Source: [facility] REPOSITORY TYPE CODE TESTS RESULT OUT OF RANGE REFERENCE UNITS LAB [id number] LEUKOCYTES(10*3/ U L) IN BLOOD BY AUTOMATED COUNT 9.35 4.00-10.60 10*3/uL LAB 2277529 ERYTHROCYTES (10*6/UL) IN BLOOD BY AUTOMATED COUNT 3.84 Low 4.20-5.70 10*6/uL LAB 5302453 HEMOGLOBIN (G/DL ) IN BLOOD 11.8 Low 13.0-17.0 g/dL LAB 7943989 HEMATOCRIT (%) I N BLOOD BY AUTOMATED COUNT 37.0 Low 39.0-55.0 % LAB 3077905 ERYTHROCYTE MEAN CORPUSCULAR VOLUME (FL) BY AUTOMATED COUNT 96.4 82.0-98.0 fL LAB 0173826 ERYTHROCYTE MEAN CORPUSCULAR HEMOGLOBIN (PG) BY AUTOMATED COUNT 30.7 27.0-33.0 pg LAB 3022413 ERYTHROCYTE MEAN CORPUSCULAR HEMOGLOBIN CONCENTRATION (G/DL) BY AUTOMATED 31.9 Low 32.0-35.0 g/dL LAB 8301738 ERYTHROCYTE DISTRIBUTION WIDTH (RATIO) BY AUTOMATED COUNT 16.6 High 11.5-15.0 % LAB 3951588 PLATELETS (10*3/UL) IN BLOOD AUTOMATED COUNT 254 150-400 10*3/uL Performed By: #### [id number] ## ## [facility] [address] [place] [address] PSA, SCREENING Collected: 10:07 AM Status: UNK Source: [facility] REPOSITORY TYPE CODE TESTS RESULT OUT OF RANGE REFERENCE UNITS LAB [id number] PROSTATE SPECIFIC AG (NG/ML) IN SER/PLAS 0.5 0.4-4 ng/mL Performed By: #### [id number] ## ## [facility] [address] [place] [address] GLUCOSE POCT GLUCOMETERS Collected: 12/24/2023 11:49 AM Status: F Source: [facility] REPOSITORY TYPE CODE TESTS RESULT OUT OF RANGE REFERENCE UNITS LAB GLUPOC Glucose Poc Glucometers 207 mg/dL Result Comment: Random Gluco se Reference Range is dependent on time and content of last meal. Glucose of more than 200 mg/dL in a nonstressed, ambulatory subject supports the diagnosis of Diabetes Mellitus. LAB COMM1 Commemt1 Glu2: Cleaned Meter Result Comment: PERFORMED BY : [facility] [place] [address] PATHOLOGIST BELL PERSON JEFFREY MOORE M.D. Performed By: #### GLULS ### # Point of Care testing , ALLERGIES DATE TYPE / CODE NAME / CODE REACTION SEVERITY SOURCE 11/27/2024 Drug Allergy/41 1143458(SN OMED CT) vancomycin/L86022 4866(RXNORM) Rash Unknown [facility] 11/27/2024 Drug Allergy/41 5948356(SN OMED CT) haloperidol/G4572 40432(RXNORM) Anxiety Unknown [facility] 11/27/2024 Drug Allergy/41 7229277(SN OMED CT) latex/[id number]( RXNORM) Rash Mild (Qualifier Value) [facility] 09/25/2023 DRUG INGREDI/41 1381610(SN OMED CT) HALOPERIDOL Anxiety [facility] 02/28/2023 DRUG INGREDI/41 2572090(SN OMED CT) VANCOMYCIN [facility] 02/28/2023 DRUG INGREDI/41 2281467(SN OMED CT) VANCOMYCIN [facility] 06/18/2022 DRUG/82102 1003(SNOME D CT) ADHESIVE TAPE-SILICONES Rash [facility] 06/18/2022 DRUG INGREDI/41 0416983(SN OMED CT) LATEX Rash [facility] 05/02/2022 Drug Class/4195 66827(SNOM ED CT) ADHESIVE Rash [facility] 06/16/2018 DRUG INGREDI/41 6898830(SN OMED CT) SUNFLOWER SEED Abdominal Pain [facility] 06/16/2018 DRUG INGREDI/41 2918403(SN OMED CT) SUNFLOWER OIL (Inactive) GI intolerance [facility] ENCOUNTERS ADMIT/DISCHARGE ACCOUNT NUMBER ADMITTING ENCOUNTER CLASS LOCATION SOURCE 12/06/2024/ 025 [id number] Emergency Building:[facility] _EDRoom: 3Bed: 03 [facility] 12/05/2024/ 025 [id number] Emergency Building:[facility] _EDRoom: 2Bed: 02 [facility] 12/05/2024/ 025 [id number] Ambulatory Building:[facility] 11/27/2024/ 025 [id number] Venkat Burgos [facility]ER [facility] 11/27/2024/ 025 [id number] Emergency Building:PFM _EDRoom: H3Bed: H3 [facility] 11/27/2024/ 025 [id number] Emergency Building:PFM _EDRoom: 12Bed: 12 [facility] 11/23/2024 [id number] Ambulatory Buildin 0 [facility] 11/07/2024/ 025 [id number] Ambulatory Building:[facility] 10/31/2024/ 025 [id number] Ambulatory Building:[facility] 10/29/2024/ 025 [id number] Maxime Magana [facility]oom: [id number]: [address] [facility] 10/25/2024/ 025 [id number] Emergency Building:PFM _EDRoom: 2Bed: 02 [facility] 10/17/2024/ 025 [id number] Ambulatory Building:[facility] 10/17/2024/ 025 [id number] Ambulatory Building:[facility] 10/13/2024/ 025 [id number] PETZNICK, IDANIA [facility] 10/03/2024/ 025 [id number] Ambulatory Building:NOM S SWS POD [facility] 10/02/2024/ 025 [id number] [facility] 09/19/2024/ 025 [id number] [facility] 09/19/2024/ 025 [id number] Ambulatory Building:NOM S SWS POD [facility] EP[facility] 09/12/2024/ 025 [id number] Ambulatory Buildin 0 [facility] 09/05/2024/ 024 [id number] Ambulatory Building:UTM C SURG [facility] 09/04/2024/ 024 [id number] Ambulatory Building:NOM S [facility] 08/28/2024/ 024 [id number] Delano Mondragon [facility]ER [facility] 08/22/2024/ 024 [id number] ERICK CARTER Ambulatory Building:AMATO oom: ORBed: 1147 [facility] 08/22/2024/ 024 [id number] Ambulatory Buildin [id number] [facility] 08/22/2024 [id number] Ambulatory Building:UTM C OPD [facility] 08/08/2024/ 024 [id number] Ambulatory Building:UTM C SURG [facility] 08/08/2024 [id number] Ambulatory Buildin 0 [facility] 08/07/2024/ 024 [id number] Ambulatory Building:NOM S [facility] 07/28/2024/ 024 [id number] Ambulatory Buildin [id number] [facility] 07/28/2024/ 024 [id number] Ambulatory Buildin [id number] [facility] 07/27/2024/ 024 [id number] MALI ALVAREZ Ambulatory Buildin 0Room: [facility] POOLBed: 2435 [facility] 07/25/2024/ 024 [id number] Ambulatory Building:C INF [facility] 07/18/2024/ 024 [id number] Ambulatory Buildin [id number] [facility] 07/11/2024/ 024 [id number] Ambulatory Building:[facility] C XRAY [facility] 07/11/2024/ 024 [id number] Ambulatory Building:[facility] 07/11/2024 [id number] Ambulatory Building:[facility] C OPD [facility] 07/11/2024/ 024 [id number] Ambulatory Buildin [id number] [facility] 07/11/2024 [id number] Ambulatory Buildin 0 [facility] 06/29/2024/ 024 [id number] Ambulatory Building:NOM S SWS POD [facility] 06/22/2024 [id number] Ambulatory Building:[facility] C OPD [facility] 06/22/2024/ 024 [id number] Ambulatory Building:[facility] 06/22/2024 [id number] Ambulatory Building:[facility] 06/20/2024/ 024 [id number] JONEL HENLEY Ambulatory BuildinC [facility] 06/13/2024/ 024 [id number] Ambulatory Building:[facility] 06/13/2024/ 024 [id number] Ambulatory Building:[facility] 06/08/2024/ 024 [id number] Ambulatory Building:NOM S SWS POD [facility] EPIC 05/26/2024/ 024 [id number] Ambulatory Building:RUR O [facility] 05/23/2024 [id number] Ambulatory Building:MP DRAW [facility] 05/18/2024/ 024 [id number] Ambulatory Building:NOM S SWS POD [facility] EPIC 05/16/2024/ 024 [id number] Ambulatory Building:NOM S FAMMED [facility] EPIC 05/15/2024/ 024 [id number] [facility] 05/04/2024/ 024 [id number] Ambulatory Building:NOM S SWS POD [facility] 04/13/2024/ 024 [id number] Ambulatory Building:NOM S SWS POD [facility] EP[facility] 03/30/2024/ 024 [id number] Ambulatory Building:NOM S SWS POD [facility] 03/16/2024/ 024 [id number] Ambulatory Building:NOM S SWS POD [facility] 02/29/2024/ 024 [id number] Ambulatory Building:NOM S SWS POD [facility] EP[facility] 02/25/2024/ 024 [id number] Ambulatory Building:NOM S FAMMED [facility] EP[facility] 02/14/2024/ 024 [id number] Ambulatory Building:NOM S SWS POD [facility] EP[facility] 02/07/2024/ 024 [id number] Ambulatory Building:NOM S SWS POD [facility] EP[facility] 02/04/2024/ 024 [id number] Gi Mondragon [facility] 02/02/2024/ 024 [id number] Ambulatory Building:NOM S SWS POD [facility] EP[facility] 01/24/2024/ 024 [id number] Ambulatory Building:NOM S SWS POD [facility] 2024 [id number] Ambulatory Building:RUR O [facility] 01/10/2024/ 024 [id number] Ambulatory Building:NOM S SWS POD [facility] 01/05/2024 [id number] Ambulatory Building:MP DRAW [facility] 12/27/2023/ 024 [id number] Ambulatory Building:NOM S SWS POD [facility] 12/24/2023/ 024 [id number] Gi Mondragon [facility] 12/24/2023/ 024 [id number] Ambulatory Building:NOM S EXT DEP [facility] EPIC 12/21/2023/ 024 [id number] Ambulatory Building:NOM S SWS POD [facility] 12/08/2023/ 024 [id number] Ambulatory Building:NOM S SWS POD [facility] EPIC FUNCTIONAL STATUS No Functional Status Records Found EQUIPMENT No Equipment Records Found PAYERS ENCOUNTER GUARANTOR PAYER SUBSCRIBER SOURCE 12/06/2024 EVANS FORTE JR.: [place] [address]Ajc: (HP) Primary Insurance:UHC MEDICARE DUAL COMPLETE [facility] Number: [id number] Date:2024-09-06 EVANS FORTE JR.: [id number] [place] [address] [facility] 12/06/2024 [place] Insura [place]ce[place]: [id number] Date:2023-02-04 EVANS FORTE JR.: [id number] [place] [address] [facility] 12/05/2024 [place] [address]Jln: (HP) Primary Insurance:UHC MEDICARE DUAL COMPLETE OPolicy Number: [id number] Date:2024-09-06 EVANS FORTE JR.: [id number] [place] [address]Cnj: (HP) [facility] 12/05/2024 [place] Insura nce:[place] MEDICA[place]Policy Number: [id number] Date:2023-02-04 EVANS FORTE JR.: [id number] [place] [address] [facility] 12/05/2024 EVANS LAURENTIDOB: [place] [address]Mqv: (HP) [place] Insurance:[place] Number: [id number] Date:2023-02-04 EVANS LINARESB: [id number] [place] [address] [facility] EPIC 12/05/2024 Secondary Insurance:[facility] MEDICAREPolicy Number: [id number] Date:2024-01-05 EVANS LINARESB: [id number] [place] [address] [facility] EPIC 11/27/2024 Evans Laurenti[address] [place] [address]Ris: (HP) Primary Insurance:[facility] Dual ComplPolicy Number: [id number] Date:4593-96-31OC[address] [address]PQ: Evans LinaresB: [id number] [place] [address]Pxk: () [facility] 11/27/2024 Secondary Insurance:MedicaidPolic y Number: [id number] Date:2024-11-27 Evans LinaresB: [id number] [place] [address]Dvq: () [facility] 11/27/2024 Tertiary Insuran ce:Self PayPolicy Number: Effective Date:2024-11-27 [facility]/27/2024 EVANS [place]TE [place] [place] [address]Qmf: (HP) Primary Insurance:UHC MEDICARE DUAL COMPLETE OPolicy Number: [id number] Date:2024-09-06 EVANS FORTE JR.: [id number] [place] [address]Cbe: (HP) [facility] 11/27/2024 [place]ura [place]ce[place] Number: [id number] Date:2023-02-04 EVANS FORTE JR.: [id number] [place] [address] [facility] 11/27/2024 EV[address] [place]TE [place] [place] [address]Gbl: (HP) Primary Insurance:UHC MEDICARE DUAL COMPLETE OPolicy Number: [id number] Date:2024-09-06 EVANS FORTE JR.: [id number] [place], [place] [address]Tyb: (HP) [facility] 11/27/2024 [place] Insura nce:[place] MEDICAIDPolicy Number: [id number] Date:2023-02-04 EVANS FORTE JR.: [id number] [place] [address] [facility] 11/23/2024 Primary Insurance:UNITED [employer]ALTHCARE MEDICAREPolicy Number: [id number] Date:2024-01-05 EVANS LAURENTIDOB: [id number] [place] [address] [facility] 11/23/2024 Secondary Insurance:MEDICAID [place] Number: [id number] Date:2023-02-04 EVANS LINARESB: [id number] [place] [address] [facility] 11/07/2024 Primary Insurance:UNITED HEALTHCAREPolicy Number: [id number] Date:2024-01-05 EVANS LINARESB: [id number] [place] [address] [facility] 11/07/2024 Secondary Insurance:[facility] MEDICAREPolicy Number: [id number] Date:2024-01-05 EVANS LINARESB: [id number] [place] [address] [facility] 11/07/2024 Tertiary Insurance:[employer] MED[facility] MEDICAREPolicy Number: [id number] Date:2024-01-05 EVANS LINARESB: [id number] [place] [address] [facility] 11/07/2024 Tertiary Insurance:MEDICAID [place]olicy Number: [id number] Date:2023-02-04 EVANS LINARESB: [id number] [place] [address] [facility] 10/31/2024 Primary Insurance:RADIANT HEALTHCAREPolicy Number: [id number] Date:2024-01-05 EVANS LINARESB: [id number] [place] [address] [facility] 10/31/2024 Secondary Insurance:[facility] MEDICAREPolicy Number: [id number] Date:2024-01-05 EVANS LINARESB: [id number] [place] [address] [facility] 10/31/2024 Tertiary Insurance:[employer] MEDICAL MEDICAREPolicy Number: [id number] Date:2024-01-05 EVANS LINARESB: [id number] [place] [address] [facility] 10/31/2024 Tertiary Insurance:MEDICAID [place] Number: [id number] Date:2023-02-04 EVANS LINARESB: [id number] [place] [address] [facility] 10/29/2024 Evans Laurenti[address] [place] [address]Kva: (HP) Primary Insurance:[facility] Dual ComplPolicy Number: [id number] Date:8228-86-39IN[address] [address]WX: Evans LinaresB: [id number] [place] [address]Dca: (HP) [facility] 10/29/2024 Secondary Insurance:MedicaidPolic y Number: [id number] Date:2024-10-29 Evans LinaresB: [id number] [place] [address]Nva: (HP) [facility] 10/29/2024 Tertiary Insuran ce:Self PayPolicy Number: Effective Date:2024-10-29 [facility] 10/25/2024 EVANS FORTE JR.: [place] [address]Chz: (HP) Primary Insurance:[facility] MEDICARE DUAL COMPLETE HMOPolicy Number: [id number] Date:2024-09-06 EVANS FORTE JR.: [id number] [place] [address]Pxs: (HP) [facility] 10/25/2024 [place] Insura nce:[place] MEDICAIDPolicy Number: [id number] Date:2023-02-04 EVANS FORTE JR.: [id number] [place] [address]Cfp: ([facility] 10/17/2024 [facility] Number: [id number] Date:2024-01-05 EVANS LAURENTIDOB: [id number] [place] [address] [facility] 10/17/2024 Secondary Insurance:[facility] MEDICAREPolicy Number: [id number] Date:2024-01-05 EVANS LINARESB: [id number] [place] [address] [facility] 10/17/2024 Tertiary Insurance:[facility] MEDICAL MEDICAREPolicy Number: [id number] Date:2024-01-05 EVANS LAURENTIDOB: [id number] [place] [address] [facility] 10/17/2024 Tertiary Insurance:MEDICAID [place] Number: [id number] Date:2023-02-04 EVANS LINARESB: [id number] [place] [address] [facility] 10/17/2024 Primary Insurance:[facility] Number: [id number] Date:2024-01-05 EVANS LINARESB: [id number] [place] [address] [facility] 10/17/2024 Secondary Insurance:[facility] MEDICAREPolicy Number: [id number] Date:2024-01-05 EVANS LINARESB: [id number] [place] [address] [facility] 10/17/2024 Tertiary Insurance:[employer] MEDICAL MEDICAREPolicy Number: [id number] Date:2024-01-05 EVANS LINARESB: [id number] [place] [address] [facility] 10/17/2024 Tertiary Insurance:MEDICAID [place] Number: [id number] Date:2023-02-04 EVANS LINARESB: [id number] [place] [address] [facility] 10/13/2024 EVANS LINARESB: [place] [address]Jpk: (HP) Primary Insurance:[facility] Number: [id number] Date:9863-49-98Pafq Name:Medicaid [address] [address]UP: EVANS LINARESB: [id number] [place] [address]Ofn: (HP) () [facility] 10/13/2024 Secondary Insurance:[place]ID [place]: [id number] Date:4056-87-06Yaxs Name:[address], [place] [address]GE: EVANS LINARESB: [id number] [place] [address]Zvy: (HP) (WP) [facility] 10/03/2024 EVANS LINARESB: [place] [address]Wvi: (HP) Primary Insurance:[place]ICAID [place] Number: [id number] Date:2023-02-04 EVANS LINARESB: [id number] [place] [address] [facility] 10/03/2024 Secondary Insurance:UNITED HEALTHCARE MEDICAREPolicy Number: [id number] Date:2024-01-05 EVANS LAURENTIDOB: [id number] [place] [address] [facility] EPIC 10/02/2024 EVANS LAURENTIDOB: [place] [address]Ace: (HP) Primary Insurance:MEDICAID [place] Number: [id number] Date:2023-02-04 EVANS LAURENTIDOB: [id number] [place] [address] [facility] EP[facility] 10/02/2024 Secondary Insurance:UNITED HE[employer]CARE MEDICAREPolicy Number: [id number] Date:2024-01-05 EVANS LAURENTIDOB: [id number] [place] [address] [facility] 09/19/2024 EVANS AMOSSKIDOB: [place] [address]Fng: (HP) Primary Insurance:[place]ID [place] Number: [id number] Date:2023-02-04 EVANS LAURENTIDOB: [id number] [place] [address] [facility] 09/19/2024 Secondary Insurance:UNITED HEALTHCARE MEDICAREPolicy Number: [id number] Date:2023-12-06 EVANS LAURENTIDOB: [id number] [place] [address] [facility] 09/19/2024 EVANS LAURENTIDOB: [place] [address]Iid: (HP) Primary Insurance:MEDICAID [place] Number: [id number] Date:2023-02-04 EVANS LAURENTIDOB: [id number] [place] [address] [facility] 09/19/2024 Secondary Insurance:UNITED HEALTHCARE MEDICAREPolicy Number: [id number] Date:2023-12-06 EVANS LINARESB: [id number] [place] [address] [facility] 09/12/2024 Primary Insurance:UNITED HEALTHCARE MEDICAREPolicy Number: [id number] Date:2024-01-05 EVANS LINARESB: [id number] [place] [address] [facility] 09/12/2024 Secondary Insurance:MEDICAID [place] Number: [id number] Date:2023-02-04 EVANS LINARESB: [id number] [place] [address] [facility] 09/05/2024 Primary Insurance:UNITED HEALTHCARE MEDICAREPolicy Number: [id number] Date:2024-01-05 EVANS LINARESB: [id number] [place] [address] [facility] 09/05/2024 Secondary Insurance:MEDICAID [place] Number: [id number] Date:2023-02-04 EVANS LINARESB: [id number] [place] [address] [facility] 09/04/2024 EVANS LINARESB: [place] [address]Jeq: () Primary Insurance:MEDICAID COPolicy Number: [id number] Date:2023-02-04 EVANS LINARESB: [id number] [place] [address] [facility] 09/04/2024 Secondary Insurance:UNITED HEALTHCARE MEDICAREPolicy Number: [id number] Date:2023-12-06 EVANS BARKSDALE: [id number] [place] [address] [facility] 08/28/2024 Evans Laurenti[address] [place] [address]Bfv: () Primary Insurance:[facility] Dual ComplPolicy Number: [id number] Date:0741-34-76BI[address] [address]XE: Evans LinaresB: [id number] [place] [address]Mxw: () [facility] 08/28/2024 Secondary Insurance:MedicaidPolic y Number: [id number] Date:2024-08-28 Evans LinaresB: [id number] [place] [address]Vuq: () [facility] 08/28/2024 Tertiary Insuran ce:Self PayPolicy Number: Effective Date:2024-08-28 [facility]/2024 Primary Insurance:[facility] MEDICAREPolicy Number: [id number] Date:2024-01-05 EVANS LINARESB: [id number] [place] [address] [facility] 08/22/2024 Secondary Insurance:MEDICAID [place] Number: [id number] Date:2023-02-04 EVANS LINARESB: [id number] [place] [address] [facility] 08/22/2024 Primary Insurance:[facility] MEDICAREPolicy Number: [id number] Date:2024-01-05 EVANS LINARESB: [id number] [place] [address] [facility] 08/22/2024 Secondary Insurance:MEDICAID [place] Number: [id number] Date:2023-02-04 EVANS LINARESB: [id number] [place] [address] [facility] 08/22/2024 Primary Insurance:[facility] MEDICAREPolicy Number: [id number] Date:2024-01-05 EVANS LINARESB: [id number] [place] [address] [facility] 08/22/2024 Secondary Insurance:MEDICAID [place] Number: [id number] Date:2023-02-04 EVANS LINARESB: [id number] [place] [address] [facility] 08/08/2024 Primary Insurance:[facility] Number: [id number] Date:2024-01-05 EVANS LINARESB: [id number] [place] [address] [facility] 08/08/2024 Secondary Insurance:[facility] MEDICAREPolicy Number: [id number] Date:2024-01-05 EVANS LINARESB: [id number] [place] [address] [facility] 08/08/2024 Tertiary Insurance:MEDICAID [place] Number: [id number] Date:2023-02-04 EVANS LINARESB: [id number] [place] [address] [facility] 08/08/2024 Primary Insurance:[facility] MEDICAREPolicy Number: [id number] Date:2024-01-05 EVANS LINARESB: [id number] [place] [address] [facility] 08/08/2024 Secondary Insurance:MEDICAID [place] Number: [id number] Date:2023-02-04 EVANS LINARESB: [id number] [place] [address] [facility] 08/07/2024 EVANS LINARESB: [id number] [address]Srl: () Primary Insurance:MED[place]ID [place] Number: [id number] Date:2023-02-04 EVANS LINARESB: [id number] [place] [address] [facility] 08/07/2024 Secondary Insurance:[facility] MEDICAREPolicy Number: [id number] Date:2023-12-06 EVANS LINARESB: [id number] [place] [address] [facility] 07/28/2024 Primary Insurance:[facility] Number: [id number] Date:2024-01-05 EVANS LINARESB: [id number] [place] [address] [facility] 07/28/2024 Secondary Insurance:[facility] MEDICAREPolicy Number: [id number] Date:2024-01-05 EVANS LINARESB: [id number] [place] [address] [facility] 07/28/2024 Tertiary Insurance:MEDICAID [place] Number: [id number] Date:2023-02-04 EVANS LINARESB: [id number] [place] [address] [facility] 07/28/2024 Primary Insurance:RADIANT HEALTHCAREPolicy Number: [id number] Date:2024-01-05 EVANS LINARESB: [id number] [place] [address] [facility] 07/28/2024 Secondary Insurance:[facility] MEDICAREPolicy Number: [id number] Date:2024-01-05 EVANS LINARESB: [id number] [place] [address] [facility] 07/28/2024 Tertiary Insurance:MEDICAID [place]: [id number] Date:2023-02-04 EVANS LAURENTIDOB: [id number] [place] [address] [facility] 07/27/2024 [facility]: [id number] Date:2024-01-05 EVANS LINARESB: [id number] [place] [address] [facility] 07/27/2024 Secondary Insurance:[facility] MEDICAREPolicy Number: [id number] Date:2024-01-05 EVANS LINARESB: [id number] [place] [address] [facility] 07/27/2024 Tertiary Insurance:[place] Number: [id number] Date:2023-02-04 EVANS LINARESB: [id number] [place] [address] [facility] 07/25/2024 [facility]: [id number] Date:2024-01-05 EVANS LINARESB: [id number] [place] [address] [facility] 07/25/2024 Secondary Insurance:[facility] MEDICAREPolicy Number: [id number] Date:2024-01-05 EVANS LINARESB: [id number] [place] [address] [facility] 07/25/2024 Tertiary Insurance:[place]: [id number] Date:2023-02-04 EVANS LINARESB: [id number] [place] [address] [facility] 07/18/2024 [facility]: [id number] Date:2024-01-05 EVANS LAURENTIDOB: [id number] [place] [address] [facility] 07/18/2024 Secondary Insurance:[facility] MEDICAREPolicy Number: [id number] Date:2024-01-05 EVANS LAURENTIDOB: [id number] [place] [address] [facility] 07/18/2024 Tertiary Insurance:MEDICAID [place] Number: [id number] Date:2023-02-04 EVANS LAURENTIDOB: [id number] [place] [address] [facility] 07/11/2024 [facility] Insurance[facility] Number: [id number] Date:2024-01-05 EVANS LAURENTIDOB: [id number] [place] [address] [facility] 07/11/2024 Secondary Insurance:[facility] MEDICAREPolicy Number: [id number] Date:2024-01-05 EVANS LAURENTIDOB: [id number] [place] [address] [facility] 07/11/2024 Tertiary Insurance:MEDICAID [place] Number: [id number] Date:2023-02-04 EVANS LAURENTIDOB: [id number] [place] [address] [facility] 07/11/2024 [facility] Insurance[facility] Number: [id number] Date:2024-01-05 EVANS LAURENTIDOB: [id number] [place] [address] [facility] 07/11/2024 Secondary Insurance:[facility] MEDICAREPolicy Number: [id number] Date:2024-01-05 EVANS LINARESB: [id number] [place] [address] [facility] 07/11/2024 Tertiary Insurance:MEDICAID [place] Number: [id number] Date:2023-02-04 EVANS LINARESB: [id number] [place] [address] [facility] 07/11/2024 Primary Insurance:[facility]AREPolicy Number: [id number] Date:2024-01-05 EVANS LINARESB: [id number] [place] [address] [facility] 07/11/2024 Secondary Insurance:[facility] MEDICAREPolicy Number: [id number] Date:2024-01-05 EVANS LINARESB: [id number] [place] [address] [facility] 07/11/2024 Tertiary Insurance:MEDICAID [place] Number: [id number] Date:2023-02-04 EVANS LINARESB: [id number] [place] [address] [facility] 07/11/2024 Primary Insurance:UNITED HEALTHCAREPolicy Number: [id number] Date:2024-01-05 EVANS LINARESB: [id number] [place] [address] [facility] 07/11/2024 Secondary Insurance:[facility] MEDICAREPolicy Number: [id number] Date:2024-01-05 EVANS LINARESB: [id number] [place] [address] [facility] 07/11/2024 Tertiary Insurance:MEDICAID [place] Number: [id number] Date:2023-02-04 EVANS LINARESB: [id number] [place] [address] [facility] 07/11/2024 [facility] Number: [id number] Date:2024-01-05 EVANS Ac ANASTASIIAIDOB: [id number] [place] [address] [facility] 07/11/2024 Secondary Insurance:[facility] MEDICAREPolicy Number: [id number] Date:2024-01-05 EVANS LAURENTIDOB: [id number] [place] [address] [facility] 07/11/2024 Tertiary Insurance:MEDICAID [place] Number: [id number] Date:2023-02-04 EVANS LINARESB: [id number] [place] [address] [facility] 06/29/2024 EVANS LAURENTIDOB: [id number] [place] [address]Hqh: () [place]: [id number] Date:2023-02-04 EVANS Ac CONCEPCIÓNB: [id number] [place] [address] [facility] 06/29/2024 Secondary Insurance:[facility] MEDICAREPolicy Number: [id number] Date:2023-12-06 EVANS LAURENTIDOB: [id number] [place] [address] [facility] 06/22/2024 [facility] Number: [id number] Date:2024-01-05 EVANS LAURENTIDOB: [id number] [place] [address] [facility] 06/22/2024 Secondary Insurance:[facility] MEDICAREPolicy Number: [id number] Date:2024-01-05 EVANS LINARESB: [id number] [place] [address] [facility] 06/22/2024 Tertiary Insurance:MEDICAID [place] Number: [id number] Date:2023-02-04 EVANS LAURENTIDOB: [id number] [place] [address] [facility] 06/22/2024 [facility] Number: [id number] Date:2024-01-05 EVANS LINARESB: [id number] [place] [address] [facility] 06/22/2024 Secondary Insurance:[facility] MEDICAREPolicy Number: [id number] Date:2024-01-05 EVANS LINARESB: [id number] [place] [address] [facility] 06/22/2024 Tertiary Insurance:MEDICAID [place] Number: [id number] Date:2023-02-04 EVANS LINARESB: [id number] [place] [address] [facility] 06/22/2024 [facility] Number[facility] [id number] Date:2024-01-05 EVANS LINARESB: [id number] [place] [address] [facility] 06/22/2024 Secondary Insurance:[facility] MEDICAREPolicy Number: [id number] Date:2024-01-05 EVANS LINARESB: [id number] [place] [address] [facility] 06/22/2024 Tertiary Insurance:MEDICAID [place] Number: [id number] Date:2023-02-04 EVANS LINARESB: [id number] [place] [address] [facility] 06/20/2024 [facility] Number: [id number] Date:2024-01-05 EVANS LAURENTIDOB: [id number] [place] [address] [facility] 06/20/2024 Secondary Insurance:[facility] MEDICAREPolicy Number: [id number] Date:2024-01-05 EVANS LAURENTIDOB: [id number] [place] [address] [facility] 06/20/2024 Tertiary Insurance:MEDICAID [place] Number: [id number] Date:2023-02-04 EVANS LAURENTIDOB: [id number] [place] [address] [facility] 06/13/2024 Primary Insurance:[facility] MEDICAREPolicy Number: [id number] Date:2024-01-05 EVANS LAURENTIDOB: [id number] [place] [address] [facility] 06/13/2024 Secondary Insurance:MEDICAID [place]icy Number: [id number] Date:2023-02-04 EVANS LINARESB: [id number] [place] [address] [facility] 06/13/2024 Primary Insurance:[facility] MEDICAREPolicy Number: [id number] Date:2024-01-05 EVANS LAURENTIDOB: [id number] [place] [address] [facility] 06/13/2024 Secondary Insurance:MEDICAID [place] Number: [id number] Date:2023-02-04 EVANS LAURENTIDOB: [id number] [place] [address] [facility] 06/08/2024 EVANS LINARESB: [place] [address]Lni: (HP) [place] Insurance[place] Number: [id number] Date:2023-02-04 EVANS LAURENTIDOB: [id number] [place] [address] [facility] 06/08/2024 Secondary Insurance:[facility] MEDICAREPolicy Number: [id number] Date:2024-01-05 EVANS LAURENTIDOB: [id number] [place] [address] [facility] 05/26/2024 Primary Insurance:[facility] MEDICAREPolicy Number: [id number] Date:2024-01-05 EVANS LINARESB: [id number] [place] [address] [facility] 05/26/2024 Secondary [facility] [id number] Date:2023-02-04 EVANS LINARESB: [id number] [place] [address] [facility] 05/23/2024 Primary Insurance:[facility] MEDICAREPolicy Number: [id number] Date:2024-01-05 EVANS LINARESB: [id number] [place] [address] [facility] 05/23/2024 Secondary Insurance[facility]: [id number] Date:2023-02-04 EVANS LINARESB: [id number] [place] [address] [facility] 05/18/2024 EVANS LAURENTIDOB: [place] [address]Vim: (HP) [place] Insurance:[place]ID [place]: [id number] Date:2023-02-04 EVANS Shen ANASTASIIAIDOB: [id number] [place] [address] [facility] 05/18/2024 Secondary Insurance:[facility] MEDICAREPolicy Number: [id number] Date:2024-01-05 EVANS Shen ANASTASIIAIDOB: [id number] [place] [address] [facility] 05/16/2024 EVANS Shen ANASTASIIAIDOB: [place] [address]Kec: () [place] Insurance:[place] Number: [id number] Date:2023-02-04 EVANS Shen ANASTASIIAIDOB: [id number] [place] [address] [facility] 05/16/2024 Secondary Insurance:[facility] MEDICAREPolicy Number: [id number] Date:2024-01-05 EVANS Shen ANASTASIIAIDOB: [id number] [place] [address] [facility] 05/15/2024 Evans Shen Ecoeczii5216 [place] [address]Gtg: (HP) Primary Insurance:[facility] Dual ComplPolicy Number: [id number] Date:8260-27-44JR[address] [address]YL: Evans cA AnastasiiaiDOB: [id number] [place] [address]Srv: () [facility] 05/15/2024 Secondary Insurance:MedicaidPolic y Number: [id number] Date:2024-05-15 Evans LaurentiDOB: [id number] [place] [address]Xpb: () [facility] 05/15/2024 Tertiary Insuran ce:Self PayPolicy Number: Effective Date:2024-05-15 NOT GIVENUNK [facility] 05/04/2024 EVANS LINARESB: [place] [address]Fky: (HP) [place] Insurance:[place] Number: [id number] Date:2023-02-04 EVANS LINARESB: [id number] [place] [address] [facility] 05/04/2024 Secondary Insurance:[facility] MEDICAREPolicy Number: [id number] Date:2024-01-05 EVANS LINARESB: [id number] [place] [address] [facility] 04/13/2024 EVANS LAURENTIDOB: [place] [address]Nht: (HP) [place]: [id number] Date:2023-02-04 EVANS LINARESB: [id number] [place] [address] [facility] 04/13/2024 Secondary Insurance:[facility] MEDICAREPolicy Number: [id number] Date:2024-01-05 EVANS LINARESB: [id number] [place] [address] [facility] 03/30/2024 EVANS LAURENTIDOB: [place] [address]Xhn: (HP) [place]: [id number] Date:2023-02-04 EVANS LINARESB: [id number] [place] [address] [facility] 03/30/2024 Secondary Insurance:[facility] MEDICAREPolicy Number: [id number] Date:2024-01-05 EVANS LAURENTIDOB: [id number] [place] [address] [facility] 03/16/2024 EVANS LAURENTIDOB: [place] [address]Xct: (HP) [place]: [id number] Date:2023-02-04 EVANS LAURENTIDOB: [id number] [place] [address] [facility] 03/16/2024 Secondary Insurance:[facility] MEDICAREPolicy Number: [id number] Date:2024-01-05 EVANS LAURENTIDOB: [id number] [place] [address] [facility] 02/29/2024 EVANS LAURENTIDOB: [place] [address]Xkc: (HP) [place] Insurance:[place]: [id number] Date:2023-02-04 EVANS LAURENTIDOB: [id number] [place] [address] [facility] 02/29/2024 Secondary Insurance:[facility] MEDICAREPolicy Number: [id number] Date:2024-01-05 EVANS LAURENTIDOB: [id number] [place] [address] [facility] 02/25/2024 EVANS LAURENTIDOB: [place] [address]Eay: (HP) [place] Insurance:[place]: [id number] Date:2023-02-04 EVANS LAURENTIDOB: [id number] [place] [address] [facility] 02/25/2024 Secondary Insurance:[facility] MEDICAREPolicy Number: [id number] Date:2024-01-05 EVANS LAURENTIDOB: [id number] [place] [address] [facility] 02/14/2024 EVANS LAURENTIDOB: [place] [address]Onx: (HP) [place] Insurance[place]: [id number] Date:2023-02-04 EVANS LINARESB: [id number] [place] [address] [facility] 02/14/2024 Secondary Insurance:[facility] MEDICAREPolicy Number: [id number] Date:2024-01-05 EVANS LAURENTIDOB: [id number] [place] [address] [facility] 02/07/2024 EVANS LAURENTIDOB: [place] [address]Ezo: (HP) [place] Insurance:[place]: [id number] Date:2023-02-04 EVANS LINARESB: [id number] [place] [address] [facility] 02/07/2024 Secondary Insurance:[facility] MEDICAREPolicy Number: [id number] Date:2024-01-05 EVANS LINARESB: [id number] [place] [address] [facility] 02/04/2024 Evans Laurenti1649 [place] [address]Hbq: (HP) Primary Insurance:[facility] Dual ComplPolicy Number: [id number] Date:7125-31-64AI[address] [address]FZ: Evans LaurentiDOB: 4072-93-35VZV4327 [place] [address]Ijr: (HP) [facility] 02/04/2024 Secondary Insurance:MedicaidPolic y Number: [id number] Date:2024-01-26 Evans LaurentiDOB: 0027-29-73BBU9582 [place] [address]Ryt: (HP) [facility] 02/04/2024 Tertiary Insuran ce:Self PayPolicy Number: Effective Date:2024-02-02 NOT GIVENUNK [facility] 02/02/2024 EVANS LINARESB: [place] [address]Xuf: () Primary Insurance:[place]: [id number] Date:2023-02-04 EVANS LINARESB: [id number] [place] [address] [facility] 02/02/2024 Secondary Insurance:[facility] MEDICAREPolicy Number: [id number] Date:2024-01-05 EVANS LINARESB: [id number] [place] [address] [facility] 01/24/2024 EVANS LAURENTIDOB: [place] [address]Xnw: () [place] Insurance[place]: [id number] Date:2023-02-04 EVANS LINARESB: [id number] [place] [address] [facility] 01/24/2024 Secondary Insurance:[facility] MEDICAREPolicy Number: [id number] Date:2024-01-05 EVANS LINARESB: 5689-99-90EIU7247 [place] [address] [facility] 2024 Primary Insurance:[facility] MEDICAREPolicy Number: [id number] Date:2024-01-05 EVANS LAURENTIDOB: [id number] [place] [address] [facility] 2024 EVANS LAURENTIDOB: [place] [address]Fog: (HP) [place] Insurance:[place]: [id number] Date:2023-02-04 EVANS LINARESB: [id number] [place] [address] [facility] 2024 Secondary Insurance:[facility] MEDICAREPolicy Number: [id number] Date:2024-01-05 EVANS LINARESB: [id number] [place] [address] [facility] 01/05/2024 Primary Insurance:[facility] MEDICAREPolicy Number: [id number] Date:2024-01-05 EVANS LINARESB: [id number] [place] [address] [facility] 12/27/2023 EVANS LINARESB: [place] [address]Hwy: (HP) Primary Insurance:[place]: [id number] Date:2023-02-04 EVANS LINARESB: [id number] [place] [address] [facility] 12/27/2023 Secondary Insurance:[employer]ARP MEDICARE COMPLETEPolicy Number: [id number] Date:2023-09-06 EVANS LINARESB: [id number] [place] [address] [facility] 12/24/2023 Evans [id number] [place] [address]Lxl: (HP) Primary Insurance:[facility] Medicare Advantage PFFSPolicy Number: [id number] Date:6935-52-27WQ [place], [place] [address]UW: Evans LinaresB: 6661-86-34KIH2492 [place] [address]Hkz: (HP) [facility] 12/24/2023 Secondary Insurance:MedicaidPolic y Number: [id number] Date:2023-12-14 Evans LinaresB: 0334-93-32BZR2609 [place] [address]Qty: () [facility] 12/24/2023 Tertiary Insuran ce:Self PayPolicy Number: Effective Date:2023-12-14 [facility] EVANS LINARESB: [place] [address]Qpx: (HP) [place] Insurance[place]: [id number] Date:2023-02-04 EVANS LINARESB: [id number] [place] [address] [facility] 12/24/2023 Secondary Insurance:[facility] MEDICARE COMPLETEPolicy Number: [id number] Date:2023-09-06 EVANS LINARESB: [id number] [place] [address] [facility] 12/21/2023 EVANS LINARESB: [place] [address]Gar: (HP) [place]: [id number] Date:2023-02-04 EVANS LINARESB: [id number] [place] [address] [facility] 12/21/2023 Secondary Insurance:[employer] MEDICARE COMPLETEPolicy Number: [id number] Date:2023-09-06 EVANS LINARESB: [id number] [place] [address] [facility] 12/08/2023 EVANS LINARESB: [place] [address]Xlo: () [place] Insurance[place]: [id number] Date:2023-02-04 EVANS LINARESB: [id number] [place] [address] [facility] 12/08/2023 Secondary Insurance:[employer] MEDICARE COMPLETEPolicy Number: [id number] Date:2023-09-06 EVANS LINARESB: [id number] [place] [address] [facility] SOCIAL HISTORY No Social History Records Found FAMILY HISTORY No Family History Records Found No Status Records Found ADVANCE DIRECTIVES No Advanced Directives Records Found INFORMATION SOURCE DATE CREATED AUTHOR AUTHOR'S TANESHAIZ ATION 12/07/2024 ARIEL
--- NOTE | 2024-12-07 02:38 | ED.GENADUL1 ---
HPI HPI - General Adult General Chief complaint: Extremity Problem, Nontraumatic Stated complaint: LOWER EXTREMITY PAIN Time Seen by Provider: 12/07/24 02:15 Source: patient Mode of arrival: walk-in Limitations: no limitations History of Present Illness HPI narrative: 54-year-old male presents to the emergency department for right foot pain. He has a history of diabetic neuropathy and has an ongoing issue. For this he sees a youth counselor. The pain is severe and came up and within the last few days. There is been no trauma. He has well-known to him wounds on his foot which is youth counselor is aware of and these are unchanged. No drainage or fever. Related Data Home Medications ?Medication ?Instructions ?Recorded ?Confirmed B complex 11-folic acid 1 mg-C 100 1 tab PO DAILY 08/29/24 12/07/24 mg-biotin 300 mcg-zinc 50 mg tablet (Dialyvite) anastrozole 1 mg tablet 1 mg PO DAILY 08/29/24 12/07/24 aspirin 81 mg chewable tablet 1 tab PO DAILY 08/29/24 12/07/24 atorvastatin 20 mg tablet 20 mg PO DAILY 08/29/24 12/07/24 calcitriol 0.25 mcg capsule 0.25 mcg PO QWEEK 08/29/24 12/07/24 carvedilol 6.25 mg tablet 6.25 mg PO Q12H 08/29/24 12/07/24 escitalopram oxalate 10 mg tablet 10 mg PO DAILY 08/29/24 12/07/24 furosemide 80 mg tablet 80 mg PO Q12H 08/29/24 12/07/24 insulin aspart U-100 100 unit/mL 10 unit subcut .meals 08/29/24 12/07/24 (3 mL) subcutaneous pen insulin glargine 100 unit/mL (3 60 unit subcut QAM 08/29/24 12/07/24 mL) subcutaneous pen (Lantus Solostar U-100 Insulin) insulin lispro 100 unit/mL 10 unit subcut .meal 08/29/24 08/29/24 subcutaneous pen (Humalog KwikPen (U-100) Insulin) levothyroxine 100 mcg tablet 100 mcg PO DAILY 08/29/24 12/07/24 pregabalin 150 mg capsule 150 mg PO TID 08/29/24 12/07/24 sevelamer carbonate 800 mg tablet 800 mg PO TID 08/29/24 12/07/24 tenapanor 30 mg tablet (Xphozah) 30 mg PO DAILY 08/29/24 08/29/24 testosterone 1.62 % (20.25 mg/1.25 1 packet topical DAILY 08/29/24 08/29/24 gram) transdermal gel packet tirzepatide 10 mg/0.5 mL mg subcut 08/29/24 subcutaneous pen injector (Jarrod) trazodone 50 mg tablet 50 mg PO QPM 08/29/24 08/29/24 Previous Rx's ?Medication ?Instructions ?Recorded hydrocodone 5 mg-acetaminophen 325 1 tab PO Q6H PRN pain 5 days #20 08/29/24 mg tablet tabs hydrocodone 5 mg-acetaminophen 325 1 tab PO Q6H PRN pain 5 days #20 12/07/24 mg tablet tabs Allergies Allergy/AdvReac Type Severity Reaction Status Date / Time vancomycin AdvReac Severe rash Verified 12/07/24 02:21 adhesive AdvReac Intermediate rash Verified 12/07/24 02:21 latex AdvReac Mild Rash Verified 12/07/24 02:21 sunflower seed AdvReac Mild Congested Verified 12/07/24 02:21 Opioid HPI Opioid Management Most Recent Opioid Data: Last Pain Scale 10 08/29/24 04:30 08/29/24 Review of Systems ROS Narrative A ten point review of systems is negative except as noted above. 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 General: The patient appears well and in no apparent distress. Patient is resting comfortably on cart. Skin: Warm, dry, no pallor noted. There is no rash noted. Head: Normocephalic, atraumatic Eye: Normal conjunctiva, no drainage Ears, Nose, Mouth, and Throat: oral mucosa is moist. Nares patent. Cardiovascular: Regular Rate and Rhythm Respiratory: Patient is in no distress, no accessory muscle use, lungs are clear to auscultation, no wheezing, rales or rhonchi Back: non-tender GI: Soft and nontender Musculoskeletal: His feet are examined. No wounds on the left foot. No erythema. The right foot has black eschar at the heel and over the first MTP joint region. There is no drainage or surrounding erythema. Neurological: A&O, normal speech Psychiatric: Cooperative Constitutional Vital Signs, click to edit/add: Last Vital Signs Temp 97.7 F 12/07/24 02:16 Pulse 84 12/07/24 02:16 Resp 18 12/07/24 02:16 BP 186/95 H 12/07/24 02:16 Pulse Ox 98 12/07/24 02:16 O2 Del Method Room Air 12/07/24 02:16 Course Vital Signs Vital signs: Vital Signs Temperature 97.7 F 12/07/24 02:16 Pulse Rate 84 12/07/24 02:16 Respiratory Rate 18 12/07/24 02:16 Blood Pressure 186/95 H 12/07/24 02:16 Pulse Oximetry 98 12/07/24 02:16 Oxygen Delivery Method Room Air 12/07/24 02:16 Temperature 97.7 F 12/07/24 02:16 Pulse Rate 84 12/07/24 02:16 Respiratory Rate 18 12/07/24 02:16 Blood Pressure 186/95 H 12/07/24 02:16 Pulse Oximetry 98 12/07/24 02:16 Oxygen Delivery Method Room Air 12/07/24 02:16 Medical Decision Making MDM Narrative Medical decision making narrative: He was given IM Toradol and prescribed [place]. In reviewing his prescription history initially it appeared that he had received 90 [place] tablets on November 29. I discussed this matter with the patient and he was aware. He reports that it was not him that filled that prescription. He reports that this was brought to the attention by his PCP and the patient has contacted law enforcement. He does not have a copy of the police report with him but he states one was made and he has the business card of law enforcement with a case number written on the back. He was instructed that this needs to be followed up by him and of course straightened out. He was advised to bring a copy of the police report with him the next time he comes to the emergency department for a similar issue. The prescription that was filled on November 29 was [facility]. Treatment diagnosis and follow-up were discussed with the patient. He was given a prescription for 20 [place] tablets by me lieberman. Differential Diagnosis Differential Diagnosis: Diabetic neuropathy, cellulitis Medical Records Medical records reviewed: Yes I reviewed the patient's medical records Discharge Plan Discharge Chief Complaint: Extremity Problem, Nontraumatic Clinical Impression: Diabetic neuropathy Patient Disposition: Home, Self-Care Time of Disposition Decision: 02:25 Condition: Good Mode of Transportation: Private Vehicle Prescriptions / Home Meds: New hydrocodone-acetaminophen 5-325 mg tablet 1 tab PO Q6H PRN (Reason: pain) 5 Days Qty: 20 0RF No Action anastrozole 1 mg tablet 1 mg PO DAILY aspirin 81 mg tablet,chewable 1 tab PO DAILY atorvastatin 20 mg tablet 20 mg PO DAILY Dialyvite [id number] kk-[id number]-[id number]-mg tablet 1 tab PO DAILY calcitriol 0.25 mcg capsule 0.25 mcg PO QWEEK carvedilol 6.25 mg tablet 6.25 mg PO Q12H escitalopram oxalate 10 mg tablet 10 mg PO DAILY pregabalin 150 mg capsule 150 mg PO TID furosemide 80 mg tablet 80 mg PO Q12H insulin aspart U-100 100 unit/mL (3 mL) insulin pen 10 unit SUBCUT .meals insulin glargine [Lantus Solostar U-100 Insulin] 100 unit/mL (3 mL) insulin pen 60 unit SUBCUT QAM insulin lispro [Humalog KwikPen Insulin] 100 unit/mL insulin pen 10 unit SUBCUT .meal Patient Comments: unknown ? levothyroxine 100 mcg tablet 100 mcg PO DAILY sevelamer carbonate 800 mg tablet 800 mg PO TID Mounjaro 10 mg/0.5 mL pen injector SUBCUT Xphozah 30 mg tablet 30 mg PO DAILY testosterone 1.62 % (20.25 mg/1.25 gram) gel in packet 1 packet topical DAILY trazodone 50 mg tablet 50 mg PO QPM hydrocodone-acetaminophen 5-325 mg tablet 1 tab PO Q6H PRN (Reason: pain) 5 Days Qty: 20 0RF Print Language: Greek Instructions: Diabetic Neuropathy (ED) Referrals: ANGEL RICKETTS [Primary Care Provider] - 1 week
[2024-12-07] MEDS: KETOROLAC TROMETHAMINE 60 MG/2 ML VIAL IM (02:51)
[2024-12-07 02:58] VITALS: BP 174/88
== END 2024-12-07 02:58 | disposition home or self-care (01) ==
PROVIDERS: Emergency Provider Emergency Medicine; PCP Family Medicine
DX: E11.40 Type 2 diabetes mellitus with diabetic neuropathy, unspecified (principal); Z79.4 Long term (current) use of insulin; Z79.85 Long-term (current) use of injectable non-insulin antidiabetic drugs
CPT/HCPCS: 96372; 99284; J1885

== ENCOUNTER 2025-01-02 23:42 | Emergency (ER) | payer MEDICARE, MEDICAID, SELFPAY ==
[2025-01-02 23:47] VITALS: BP 193/80; PULSE 70; TEMP 36.8; O2SAT 99; BMI 37.2
--- NOTE | 2025-01-03 00:43 | ED.GENADUL1 ---
HPI HPI - General Adult General Chief complaint: Extremity Problem, Nontraumatic Stated complaint: LOWER EXTREMITY PAIN Time Seen by Provider: 01/03/25 00:19 Source: patient Mode of arrival: walk-in Limitations: no limitations History of Present Illness HPI narrative: diabetic hemodialysis patient with long history of diabetic neuropathy of his lower extremities. States he has been on Cymbalta and Gabapentin in the past and is currently on Lyrica 150 bid was also seen at pain clinic who recommended an injection as they fetl pinched nerve was likely contributing to his neuropathy symptoms as well. Procedure was not performed as it was not cleared via his insurance company. He now presents to ER with his chronic problem he also has dry gangrenous changes on his right foot which is followed by [facility] No fever or weakness. States it is hard for him to sit for dialysis due to the neuropathy and he has dialysis coming up tomorrow Related Data Home Medications ?Medication ?Instructions ?Recorded ?Confirmed B complex 11-folic acid 1 mg-C 100 1 tab PO DAILY 08/29/24 01/02/25 mg-biotin 300 mcg-zinc 50 mg tablet (Dialyvite) anastrozole 1 mg tablet 1 mg PO DAILY 08/29/24 01/02/25 aspirin 81 mg chewable tablet 1 tab PO DAILY 08/29/24 01/02/25 atorvastatin 20 mg tablet 20 mg PO DAILY 08/29/24 01/02/25 calcitriol 0.25 mcg capsule 0.25 mcg PO QWEEK 08/29/24 01/02/25 carvedilol 6.25 mg tablet 6.25 mg PO Q12H 08/29/24 01/02/25 escitalopram oxalate 10 mg tablet 10 mg PO DAILY 08/29/24 01/02/25 furosemide 80 mg tablet 80 mg PO Q12H 08/29/24 01/02/25 insulin glargine 100 unit/mL (3 60 unit subcut QAM 08/29/24 01/02/25 mL) subcutaneous pen (Lantus Solostar U-100 Insulin) insulin lispro 100 unit/mL 10 unit subcut .meal 08/29/24 01/02/25 subcutaneous pen (Humalog KwikPen (U-100) Insulin) levothyroxine 100 mcg tablet 100 mcg PO DAILY 08/29/24 01/02/25 pregabalin 150 mg capsule 150 mg PO TID 08/29/24 01/02/25 sevelamer carbonate 800 mg tablet 800 mg PO TID 08/29/24 01/02/25 tenapanor 30 mg tablet (Xphozah) 30 mg PO DAILY 08/29/24 01/02/25 testosterone 1.62 % (20.25 mg/1.25 1 packet topical DAILY 08/29/24 01/02/25 gram) transdermal gel packet tirzepatide 10 mg/0.5 mL 10 mg subcut .q week 08/29/24 01/02/25 subcutaneous pen injector (Shawnunpedro luis) trazodone 50 mg tablet 50 mg PO QPM 08/29/24 01/02/25 methocarbamol 500 mg tablet 500 mg PO Q8H PRN back spasms 01/02/25 01/02/25 midodrine 10 mg tablet 10 mg PO .during dialysis PRN low 01/02/25 01/02/25 bp Allergies Allergy/AdvReac Type Severity Reaction Status Date / Time vancomycin AdvReac Severe rash Verified 01/02/25 23:46 adhesive AdvReac Intermediate rash Verified 01/02/25 23:46 latex AdvReac Mild Rash Verified 01/02/25 23:46 sunflower seed AdvReac Mild Congested Verified 01/02/25 23:46 Opioid HPI Opioid Management Most Recent Opioid Data: Last Pain Scale 10 08/29/24, 04:30 Review of Systems ROS Status of ROS 10 or more systems reviewed and unremarkable except as noted in history and below PFSH [facility] Medical History (Updated 01/03/25 @ 00:52 by Yash Bautista MD) Diabetes ?E11.9 - Type 2 diabetes mellitus without complications (ICD-10) Hypertension ?I10 - Essential (primary) hypertension (ICD-10) Leukemia ?C95.90 - Leukemia, 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 (ICD-10) Surgical History (Updated 08/29/24 @ 04:11 by Ruby James) H/O foot surgery ?Z98.890 - Other specified postprocedural states (ICD-10) H/O right heart catheterization ?Z98.890 - Other specified postprocedural states (ICD-10) Social History Little interest or pleasure in doing things: not at all Feeling down, depressed, or hopeless: not at all Exam Constitutional Vital Signs, click to edit/add: Last Vital Signs Temp 98.3 F 01/02/25 23:47 Pulse 70 01/02/25 23:47 Resp 18 01/02/25 23:47 BP 193/80 H 01/02/25 23:47 Pulse Ox 99 01/02/25 23:47 O2 Del Method Room Air 01/02/25 23:47 Common normals: no apparent distress, oriented x3, no limitations, healthy appearing, alert and well nourished [facility] Common normals: normocephalic and head/scalp atraumatic Eye Common normals: EOMs intact bilaterally and conjunctivae normal Respiratory Common normals: normal respiratory effort, no retractions, no use of accessory muscles and clear to auscultation bilaterally Cardio Common normals: regular rate, regular rhythm, S1 normal heart sound and S2 normal heart sound Extremity Other: dry gangrenous spots plantar right foot. open dry wound of the heel. no erythema or drainage. no swelling Neuro Common normals: oriented x3, CN's II-XII intact bilaterally, moves all extremities and no focal motor deficits Psych Appearance: grossly normal Course Vital Signs Vital signs: Vital Signs Temperature 98.3 F 01/02/25 23:47 Pulse Rate 70 01/02/25 23:47 Respiratory Rate 18 01/02/25 23:47 Blood Pressure 193/80 H 01/02/25 23:47 Pulse Oximetry 99 01/02/25 23:47 Oxygen Delivery Method Room Air 01/02/25 23:47 Temperature 98.3 F 01/02/25 23:47 Pulse Rate 70 01/02/25 23:47 Respiratory Rate 18 01/02/25 23:47 Blood Pressure 193/80 H 01/02/25 23:47 Pulse Oximetry 99 01/02/25 23:47 Oxygen Delivery Method Room Air 01/02/25 23:47 Medical Decision Making MDM Narrative Medical decision making narrative: patient presents with chronic diabetic neuropathy for several years. Currently on Lyrica which he feels is not helping. Injection per pain clinic was planned yesterday but procedure cancelled because it was not approved by his insurance company. Patient informed I can only provide short term relief and that he would have to return to his PCP for chronic maintenance of his pain. Given # 2 norco 5/325 here in the department and discharged with a prescription for 6 pills Discharge Plan Discharge Chief Complaint: Extremity Problem, Nontraumatic Clinical Impression: Diabetic neuropathy Patient Disposition: Home, Self-Care Prescriptions / Home Meds: No Action methocarbamol 500 mg tablet 500 mg PO Q8H PRN (Reason: back spasms) midodrine 10 mg tablet 10 mg PO .during dialysis PRN (Reason: low bp) anastrozole 1 mg tablet 1 mg PO DAILY aspirin 81 mg tablet,chewable 1 tab PO DAILY atorvastatin 20 mg tablet 20 mg PO DAILY Dialyvite [id number] sh-ue-[id number]-mg tablet 1 tab PO DAILY calcitriol 0.25 mcg capsule 0.25 mcg PO QWEEK carvedilol 6.25 mg tablet 6.25 mg PO Q12H escitalopram oxalate 10 mg tablet 10 mg PO DAILY pregabalin 150 mg capsule 150 mg PO TID furosemide 80 mg tablet 80 mg PO Q12H insulin glargine [Lantus Solostar U-100 Insulin] 100 unit/mL (3 mL) insulin pen 60 unit SUBCUT QAM insulin lispro [Humalog KwikPen Insulin] 100 unit/mL insulin pen 10 unit SUBCUT .meal Patient Comments: unknown ? levothyroxine 100 mcg tablet 100 mcg PO DAILY sevelamer carbonate 800 mg tablet 800 mg PO TID Mounjaro 10 mg/0.5 mL pen injector 10 mg SUBCUT .q week Xphozah 30 mg tablet 30 mg PO DAILY testosterone 1.62 % (20.25 mg/1.25 gram) gel in packet 1 packet topical DAILY trazodone 50 mg tablet 50 mg PO QPM Print Language: Croatian Instructions: Diabetic Neuropathy (ED) Referrals: ANGEL RICKETTS [Primary Care Provider, Family Practice] - 1 week
[2025-01-03] MEDS: HYDROCODONE/ACET 5-325 MG TABLET 2 TAB PO (00:49)
--- NOTE | 2025-01-03 00:59 | PC.NURSE ---
i gave this patient verbal and written discharge orders along with 1 Rx, and this patient voices yes to understanding these. at time of discharge this patient voices concerns and shows no signs of distress. this patient was instructed not to operate any automobiles, operate any machine or go to work when take these pain medication, also take a stool soften when taking these pain medication . this patient voices yes to understanding these instructions when taking theses pain medication
== END 2025-01-03 00:59 | disposition home or self-care (01) ==
PROVIDERS: Emergency Provider Internal Medicine; PCP Family Medicine
DX: E11.40 Type 2 diabetes mellitus with diabetic neuropathy, unspecified (principal); Z79.85 Long-term (current) use of injectable non-insulin antidiabetic drugs; Z79.84 Long term (current) use of oral hypoglycemic drugs; Z79.899 Other long term (current) drug therapy; Z99.2 Dependence on renal dialysis
CPT/HCPCS: 99283

== ENCOUNTER 2025-02-07 19:09 | Emergency (ER) | payer MEDICARE, MEDICAID, SELFPAY ==
--- OUTSIDE RECORDS SUMMARY | 2023-09-29 04:45 | XMS_ITS ---
Author Organization [facility] Address [address] [place] [id number] Care Team Providers Care Rotor Casting Machine Operator Name Role Phone Zaina Dejesus Unavailable [phone] REASON FOR VISIT MEDICAL RECEPTIONIST Wellness Social History Sex Assigned At : Social History Observation Description Sex Assigned At Male Encounters Encounter Location Date Provider Diagnosis Main [address] [place] [id number] 09/29/2023 Zaina Dejesus Plan Of Treatment No Information Progress Notes * Ha FORTEDOB:1970 (55 yo M)Acc No.[id number]:09/29/2023 Medical Note Patient: Ha MAHMOOD Provider: Ronda Dejesus :1970 A ge:53 Y S ex:Male Date:09/29/2023 Address:[facility] [address] [id number] Subjective: * Chief Complaints: * 1 . MEDICAL RECEPTIONIST Wellness. * Medical History: Objective: * Vitals: Assessment: Plan: * Treatment: * Billing Information: * Visit Code: * Procedure Codes: * Electronic signature of KRIS Barnes on 02/07/2025 at 07:18 PM EDT Sign off status: Pending * Provider: Ronda Dejesus Date: 09/29/2023 Generated for Printi ng/Faeliazarg/eTransmitting on: 0 02/07/2025 07:18 PM EDT
--- OUTSIDE RECORDS SUMMARY | 2023-11-17 06:51 | XMS_ITS ---
Author Organization [facility] in [place] Address [address] [place] [address] Care Team Providers Care Rubber Trimmer Name Role Phone Idania Gaston DO Primary Care Provider Unava ilAugusta Byrd Unavailable [phone] REASON FOR VISIT [facility]hmdclf-7-67-24 Encounters Encounter Location Date Provider Diagnosis [facility] Nephrology [place] [address] [place] [phone] 11/17/2023 Augusta Hill Plan Of Treatment No Information Progress Notes * Mina FORTEDOB:[birth year] (53 yo M)Acc No.[id number]:11/17/2023 Patient: Mina Merino :1970 A ge:53 Y S ex:Male Address:[facility] [address] [place], [address] * true * Date: Generated for Printi ng/Faxing/eTransmitting on: 0 02/07/2025 07:19 PM EDT
--- OUTSIDE RECORDS SUMMARY | 2025-02-02 09:08 | XMS_ITS | Encounter Summary ---
[facility] Organization [facility] Address [address] [place] [address] Care Team Providers Care Director Of Accreditation Name Role Phone Unavailable Primary Care Provider Unavailabl e Reason for Visit * Reason Comments Foot Pain Patient complains of bilateral foot pain that has been ongoing for the past few days. Patient is MWF dialysis, skipped today due to increased pain. Encounter Details Date Type Department Care Team (Late st Contact Info) Description 02/02/2025 9:08 AM EDT - 02/02/2025 12:17 PM EDT Emergency [facility] Emergency Department [address] [place] [address] Hugo Lyons MD [address] [place] [address] [place] [address] Idiopathic peripheral neuropathy (Primary Dx); End stage renal disease (HCC); Hyperkalemia Discharge Disposition: Home or Self Care Social History Tobacco Use Types Packs/Day Years Used Date Smoking Tobacco: Never Smokeless Tobacco: Never Tobacco Cessation:Counseling Given: Not Answered Alcohol Use Standard Drinks/Week Comments Never 0 (1 standard drink = 0.6 oz pur e alcohol) Interpersonal Safety Domain Source: IP Abuse Scr eening Answer Date Recorded Physical abuse Denies 02/02/2025 Verbal abuse Denies 02/02/2025 Emotional abuse Denies 02/02/2025 Financial abuse Denies 02/02/2025 Sexual abuse Denies 02/02/2025 Sex and Gender Information Value Date Recorded Sex Assigned at Not on file Legal Sex Male 9:01 AM EDT Gender Identity Not on file Sexual Orientation Not on file documented as of this encounter Last Filed Vital Signs Vital Sign Reading Time Taken Comments Blood Pressure 183/75 02/02/2025 9:06 AM EDT Pulse 79 02/02/2025 9:06 AM EDT Temperature 36.7 C (98 F) 02/02/2025 9:06 AM EDT Respiratory Rate 18 02/02/2025 9:06 AM EDT Oxygen Saturation 96% 02/02/2025 9:06 AM EDT Inhaled Oxygen Concentration - - Weight 136.1 kg (300 lb) 02/02/2025 11:42 AM EDT Height 188 cm (6' 2 ) 02/02/2025 11:42 AM EDT Body Mass Index 38.52 02/02/2025 11:42 AM EDT documented in this encounter Discharge Instructions * Discharge Instructions* Hugo Lyons MD - 02/02/2025 12:02 PM EDT I have consulted pharmacist at this time they recommend only 75 mg Lyrica per day in addition please continue with your lokelma as previously advised for treatment of your elevated potassium Please also keep your dialysis appointment within 24 hours Please keep follow-up appointments with your airconditioning plant operator and wound care as previously scheduled * Attachments The following attachments cannot be sent through Care Everywhere. * Hyperkalemia (Tristanian) * Kidney Disease: Medicines to Avoid (Tristanian) * Neuropathic Pain (Tristanian) documented in this encounter Medications at Time of Discharge methocarbamol (ROBAXIN) 500 MG tablet Take 1 tablet by mouth 3 times daily as needed (back spasms) dexAMETHasone (DECADRON) 1 MG tablet Take 1 tablet by mouth daily as needed (as needed) ergocalciferol (ERGOCALCIFEROL) 1.25 MG (70046 UT) capsule Take 1 capsule by mouth daily insulin lispro protamine & lispro (HUMALOG MIX) (75-25) 100 UNIT per ML SUSP injection vial Inject 10 Units into the skin 2 times daily (with meals) sodium zirconium cyclosilicate (LOKELMA) 10 g PACK oral suspension Take 1 packet by mouth as needed traZODone (DESYREL) 50 MG tablet Take 1 tablet by mouth nightly as needed for Sleep bumetanide (BUMEX) 1 MG tablet Take 2 tablets by mouth daily escitalopram (LEXAPRO) 10 MG tablet Take 1 tablet by mouth daily midodrine (PROAMATINE) 2.5 MG tablet Take 4 tablets by mouth daily as needed (As needed during dialysis days) Tenapanor HCl, CKD, (XPHOZAH) 30 MG TABS Take 30 mg by mouth 2 times daily aspirin 81 MG EC tablet Take 1 tablet by mouth daily insulin glargine (LANTUS) 100 UNIT/ML injection vial Inject 60 Units into the skin every morning (before breakfast) calcitRIOL (ROCALTROL) 0.25 MCG capsule Take 1 capsule by mouth daily Calcium Acetate, Phos Binder, (PHOSLO PO) Take 667 mg by mouth daily atorvastatin (LIPITOR) 20 MG tablet Take 1 tablet by mouth daily vitamin D (CHOLECALCIFEROL) 125 MCG (5000 UT) CAPS capsule Take 1 capsule by mouth daily levothyroxine (SYNTHROID) 100 MCG tablet Take 1 tablet by mouth Daily pregabalin (LYRICA) 75 MG capsuleIndications: Idiopathic peripheral neuropathy Take 1 capsule by mouth daily for 5 doses. Max Daily Amount: 75 mg 5 capsule 02/02/2025 documented as of this encounter Plan of Treatment Pending Results Name Type Priority Associated Diagnoses Date /Time SPECIMEN REJECTION Lab STAT 2024 9:47 AM EDT Scheduled Orders Name Type Priority Associated Diagnoses Orde r Schedule SPECIMEN REJECTION Lab STAT Once f or 1 Occurrences starting 02/02/2025 until 02/02/2025 documented as of this encounter Procedures Procedure Name Priority Date/Time Associated Diagnosis Comments BASIC METABOLIC PANEL STAT 02/02/2025 10:36 AM EDT CBC WITH AUTO DIFFERENTIAL STAT 02/02/2025 9:47 AM EDT XR FOOT RIGHT (MIN 3 VIEWS) STAT 02/02/2025 9:38 AM EDT documented in this encounter Results * (ABNORMAL) Basic Metabolic Panel (02/02/2025 10:36 AM EDT) Sodium 137 136 - 145 mmol/L 02/02/2025 10:36 AM [facility] Potassium 6.1(HH) 3.7 - 5.3 mmol/L 02/02/2025 10:36 AM [facility] Comment: Specimen hemolysis has exceeded the interference as defined by Yaima. Value may be falsely increased. Suggest recollection if clinically indicated. Chloride 98 98 - 107 mmol/L 02/02/2025 10:36 AM [facility] CO2 23 20 - 31 mmol/L 02/02/2025 10:36 AM [facility] Anion Gap 16 9 - 16 mmol/L 02/02/2025 10:36 AM [facility] Glucose 296(H) 74 - 99 mg/dL 02/02/2025 10:36 AM [facility] BUN 69(H) 6 - 20 mg/dL 02/02/2025 10:36 AM [facility] Creatinine 7.0(HH) 0.70 - 1.20 mg/dL 02/02/2025 10:36 AM [facility] Est, Glom Filt Rate 9(L) >60 mL/min/1.7 3m2 02/02/2025 10:36 AM [facility] Comment: These results are not intended for use in patients <18 years of age. eGFR results are calculated without a race factor using the 2020 CKD-EPI equation. Careful clinical correlation is recommended, particularly when comparing to results calculated using previous equations. The CKD-EPI equation is less accurate in patients with extremes of muscle mass, extra-renal metabolism of creatine, excessive creatine ingestion, or following therapy that affects renal tubular secretion. BUN/Creatinine Ratio 10 9 - 20 02/02/2025 10:36 AM [facility] Calcium 9.3 8.6 - 10.4 mg/dL 02/02/2025 10:36 AM [facility] 02/02/2025 10:3 6 AM EDT 02/02/2025 10:46 AM EDT us Hugo Lyons MD CHEMISTRY ORDERABLES Final R esult [facility] [address] [phone] * (ABNORMAL) CBC with Auto Differential (02/02/2025 9:47 AM EDT) WBC 10.4 3.5 - 11.3 k/uL 02/02/2025 9:47 AM [facility] RBC 3.32(L) 4.21 - 5.77 m/uL 02/02/2025 9:47 AM [facility] Hemoglobin 10.4(L) 13.0 - 17.0 g/dL 02/02/2025 9:47 AM [facility] Hematocrit 31.8(L) 40.7 - 50.3 % 02/02/2025 9:47 AM [facility] MCV 95.8 82.6 - 102.9 fL 02/02/2025 9:47 AM [facility] MCH 31.3 25.2 - 33.5 pg 02/02/2025 9:47 AM [facility] MCHC 32.7 28.4 - 34.8 g/dL 02/02/2025 9:47 AM [facility] RDW 14.6(H) 11.8 - 14.4 % 02/02/2025 9:47 AM [facility] Platelets 208 138 - 453 k/uL 02/02/2025 9:47 AM [facility] MPV 10.1 8.1 - 13.5 fL 02/02/2025 9:47 AM [facility] NRBC Automated 0.0 0.0 per 100 WBC 02/02/2025 9:47 AM [facility] Neutrophils % 76(H) 36 - 65 % 02/02/2025 9:47 AM [facility] Lymphocytes % 13(L) 24 - 43 % 02/02/2025 9:47 AM [facility] Monocytes % 7 3 - 12 % 02/02/2025 9:47 AM EDT [facility] Eosinophils % 3 1 - 4 % 02/02/2025 9:47 AM EDT [facility] Basophils % 0 0 - 2 % 02/02/2025 9:47 AM EDT [facility] Immature Granulocytes % 1(H) 0 % 02/02/2025 9:47 AM EDT [facility] Neutrophils Absolute 7.75 1.50 - 8.10 k/uL 02/02/2025 9:47 AM EDT [facility] Lymphocytes Absolute 1.35 1.10 - 3.70 k/uL 02/02/2025 9:47 AM EDT [facility] Monocytes Absolute 0.76 0.10 - 1.20 k/uL [facility] Eosinophils Absolute 0.35 0.00 - 0.44 k/uL 02/02/2025 9:47 AM EDT [facility] Basophils Absolute 0.04 0.00 - 0.20 k/uL 02/02/2025 9:47 AM EDT [facility] Immature Granulocytes Absolute 0.13 0.00 - 0.30 k/uL 02/02/2025 9:47 AM EDT [facility] Blood BLOOD SPECIMEN / Unknown 02/02/2025 9:47 AM EDT 02/02/2025 9:57 AM EDT us Hugo Lyons MD HEMATOLOGY ORDERABLES Final Result [facility] [address] [phone] * XR FOOT RIGHT (MIN 3 VIEWS) (02/02/2025 9:38 AM EDT) Anatomical Region Laterality Modality Foot, Ankle Computed Radiogr aphy 02/02/2025 10:0 9 AM EDT Impressions 02/02/2025 10:11 AM EDT 1. Soft tissue ulceration along the plantar aspect of the posterior heel. 2. No radiographic evidence of acute osteomyelitis. Narrative 02/02/2025 10:11 AM EDT EXAMINATION: THREE XRAY VIEWS OF THE RIGHT FOOT 02/02/2025 9:38 am COMPARISON: None. HISTORY: ORDERING SYSTEM PROVIDED HISTORY: Discomfort/previous history for open wound plantar aspect heel TECHNOLOGIST PROVIDED HISTORY: Discomfort/previous history for open wound plantar aspect heel FINDINGS: Status post fusion of the midfoot and hindfoot with plate and screw constructs and multiple screws. No acute fracture. Diffuse bony demineralization. Plantar calcaneal spur. Soft tissue ulceration along the plantar aspect of the posterior heel. No evidence of osseous erosions. Procedure Note Tami Concepcion MD - 02/02/2025 EXAMINATION: THREE XRAY VIEWS OF THE RIGHT FOOT 02/02/2025 9:38 am COMPARISON: None. HISTORY: ORDERING SYSTEM PROVIDED HISTORY: Discomfort/previous history for openwound plantar aspect heel TECHNOLOGIST PROVIDED HISTORY: Discomfort/previous history for open wound plantar aspect heel FINDINGS: Status post fusion of the midfoot and hindfoot with plate and screw constructs and multiple screws. No acute fracture. Diffuse bony demineralization. Plantar calcaneal spur. Soft tissue ulceration alongthe plantar aspect of the posterior heel. No evidence of osseous erosions. IMPRESSION: 1. Soft tissue ulceration along the plantar aspect of the posteriorheel. 2. No radiographic evidence of acute osteomyelitis. Hugo Lyons MD IMG DIAGNOSTIC IMAGING ORDER [place] Final Result documented in this encounter Visit Diagnoses Diagnosis Idiopathic peripheral neuropathy- Primary Unspecified hereditary and idiopathic peripheral neuropathy End stage renal disease (HCC) End stage renal disease Hyperkalemia Hyperpotassemia Idiopathic peripheral neuropathy Unspecified hereditary and idiopathic peripheral neuropathy documented in this encounter Administered Medications Inactive Administered Medications - up to 3 most recent administrations Medication Order MAR Action Action Date Dose Rate Site pregabalin (LYRICA) capsule 75 mg 75 mg, Oral, ONCE, 1 dose, On Wed02/02/25 at 1130 Given 02/02/2025 11:55 AM EDT 75 mg sodium zirconium cyclosilicate (LOKELMA) oral suspension 10 g 10 g, Oral, ONCE, 1 dose, On Wed02/02/25 at 1130, Empty entire contents of the packet(s) into a glass with 3 tablespoons (45 mL) of water. Stir well and drink immediately; if powder remains in the glass, add water, stir and drink immediately; repeat until no powder remains. Administer other oral medications 2 hours before or 2 hours after dose. Given 02/02/2025 11:55 AM EDT 10 g documented in this encounter Active and Recently Administered Medications Times are shown in EDT. Scheduled Medication Order 01/31/2025 02/01/2025 02/02/2025 pregabalin (LYRICA) capsule 75 mg (COMPLETED) 75 mg, Oral, ONCE, 1 dose, On Wed02/02/25 at 1130 1155 (Given - Provid er: Lamont Parry RN) sodium zirconium cyclosilicate (LOKELMA) oral suspension 10 g (COMPLETED) 10 g, Oral, ONCE, 1 dose, On Wed02/02/25 at 1130, Empty entire contents of the packet(s) into a glass with 3 tablespoons (45 mL) of water. Stir well and drink immediately; if powder remains in the glass, add water, stir and drink immediately; repeat until no powder remains. Administer other oral medications 2 hours before or 2 hours after dose. 1155 (Given - Provid er: Lamont Parry RN) documented in this encounter
--- OUTSIDE RECORDS SUMMARY | 2025-02-07 19:14 | XMS_ITS | Encounter Summary ---
Author Organization [facility] Address [address] [place] [address] Care Team Providers Care Wood Sawyer Name Role Phone Idania Gaston DO Unavailable [phone] Idania Gaston DO Primary Care Provider + [phone] Idania Gaston DO Unavailable [phone] Encounter Details Date Type Department Care Team (Late st Contact Info) Description 10/06/2023 Abstract [facility] [address] [facility] [address] [place] [address] Idania Gaston, [address] [facility] [address] [place] [address] Social History Tobacco Use Types Packs/Day Years Used Date Smoking Tobacco: Never Smokeless Tobacco: Never Alcohol Use Standard Drinks/Week Comments Not Currently 0 (1 standard drink = 0.6 oz pur e alcohol) AUDIT-C Answer Date Recorded Q1: How often do you have a drink containing alcohol? Never 09/30/2023 Q2: How many drinks containi ng alcohol do you have on a typical day when you are drinking? Patient does not drink Q3: How often do you have si x or more drinks on one occasion? Never 09/30/2023 PHQ-2 Answer Date Recorded Patient Health Questionnaire-2 Score 0 09/30/2023 Sex and Gender Information Value Date Recorded Sex Assigned at Not on file Legal Sex Male 7:11 PM EDT Gender Identity Not on file Sexual Orientation Not on file documented as of this encounter Plan of Treatment Not on file documented as of this encounter Visit Diagnoses Not on filedocumented in this encounter Care Teams Wood Sawyer Relationship Specialty Start Date End Date Idania Gaston DO [address] [place] [address] PCP - [facility] 02/04/23 11/13/23 Idania Gaston DO [address] [place] [address] PCP - General Family Medicine 09/20/23 Idania Gaston DO [address] [place] [address] PCP - [facility] 09/06/23 09/05/24 documented as of this encounter
--- OUTSIDE RECORDS SUMMARY | 2025-02-07 19:14 | XMS_ITS | Encounter Summary ---
Author Organization [facility] Address [address] [place] [address] Care Team Providers Care Parts Fabricator Name Role Phone Idania Gaston DO Unavailable [phone] Idania Gaston DO Primary Care Provider + [phone] Idania Gaston DO Unavailable [phone] Encounter Details Date Type Department Care Team (Late st Contact Info) Description 10/18/2023 External Result Encounter [facility] External Department Unsolicited Flakito High, DO [address] [facility] [address] [place] [address] Social History Tobacco Use Types Packs/Day Years Used Date Smoking Tobacco: Never Smokeless Tobacco: Never Alcohol Use Standard Drinks/Week Comments Never 0 (1 standard drink = 0.6 oz pure alcohol) caffeine: more than 4 cups per day coffee AUDIT-C Answer Date Recorded Q1: How often [...] on file documented as of this encounter Procedures Procedure Name Priority Date/Time Associated Diagnosis Comments ECG 12-LEAD 10/18/2023 7:16 AM EST documented in this encounter Results * ECG 12 lead (10/18/2023 7:16 AM EST) 10/18/2023 7:16 AM EST Narrative [facility] - 10/18/2023 10:49 AM EST [place] [id number] Electrocardiograph Report Signed Patient: Mina Forte MR#: [id number] : 1970 Acct:[id number] Age/Sex: 53 / M ADM Date: 10/18/23 Loc: PS Room: Type: REG CLI Attending Dr: Flakito High DO Ordering Provider: Flakito High DO Date of Service: 10/18/2308/29/702 ECG/ECG 12 lead ECG: surgery 11/01/23 Copies to: Test Reason : Blood Pressure : / mmHG Vent. Rate : 078 BPM Atrial Rate : 078 BPM P-R Int : 150 ms QRS Dur : 098 ms QT Int : 374 ms P-R-T Axes : 060 022 088 degrees QTc Int : 426 ms Normal sinus rhythm Normal ECG When compared with ECG of 25-SEP-2023 19:02, No significant change was found Confirmed by Pedro Marroquin ([id number]) on 10/18/2023 10:49:16 AM Referred By: JAMARCUS HIGH Electronically Signed By:Pedro Marroquin Transcribed By: MUS Signed By Pedro Marroquin MD 10/18/23 1049 Procedure Note Ila Marroquin MD - 10/18/[address] [id number] Electrocardiograph Report Signed Patient: Mina Forte BMR#: [id number] : 1970Acct:[id number] Age/Sex: 53 / MADM Date: 10/18/23 Loc: PS Room:Type: REG CLI Attending Dr: Flakito High DO Ordering Provider: Flakito High DO Date of Service: 10/18/2308/29/702 ECG/ECG 12 lead ECG: surgery 11/01/23 Copies to: Test Reason : Blood Pressure : / mmHG Vent. Rate : 078 BPM Atrial Rate : 078 BPM P-R Int : 150 ms QRS Dur : 098 ms QT Int : 374 ms P-R-T Axes : 060 022 088 degrees QTc Int : 426 ms Normal sinus rhythm Normal ECG When compared with ECG of 25-SEP-2023 19:02, No significant change was found Confirmed by Pedro Marroquin ([id number]) on 10/18/2023 10:49:16 AM Referred By: JAMARCUS HIGH Electronically Signed By:Dionte Transcribed By: [facility] Signed By Pedro Marroquin MD 10/18/23 1049 us Flakito High DO ECG ORDERABLES Final Result Performing Organization Address City/State/[facility] Co de Phone Number [facility] [address] [place] [address], documented in this encounter Visit Diagnoses Not on filedocumented in this encounter Care Teams Parts Fabricator Relationship Specialty Start Date End Date Idania Gaston DO [address] [place] [address] PCP - [facility] 02/04/23 11/13/23 Idania Gaston DO [address] [place] [address] PCP - General Family Medicine 09/20/23 Idania Gaston DO [address] [place] [address] PCP - [facility] 09/06/23 09/05/24 documented as of this encounter
--- OUTSIDE RECORDS SUMMARY | 2025-02-07 19:15 | XMS_ITS | Encounter Summary ---
Author Organization [facility] Address [address] [place] [address] Care Team Providers Care Coiled Coil Inspector Name Role Phone Idania Gaston DO Primary Care Provider [phone] Idania Gaston DO Unavailable [phone] Encounter Details Date Type Department Care Team (Late st Contact Info) Description 06/23/2024 Abstract [facility] [address] [facility] [address] [place] [phone] Idania Gaston, [address] [facility] [address] [place] [address] Social History Tobacco Use Types Packs/Day Years [...] Date Recorded Patient Health Questionnaire-2 Score 0 05/16/2024 Sex and Gender Information Value Date Recorded Sex Assigned at Not on file Legal Sex Male 7:11 PM EDT Gender Identity Not on file Sexual Orientation Not on file documented as of this encounter Plan of Treatment Not on file documented as of this encounter Visit Diagnoses Not on filedocumented in this encounter Care Teams Coiled Coil Inspector Relationship Specialty Start Date End Date Idania Gaston DO [address] [place] [address] PCP - General Family Medicine 09/20/23 Idania Gaston DO [address] [place] [address] PCP - [facility] 09/06/23 09/05/24 documented as of this encounter
--- OUTSIDE RECORDS SUMMARY | 2025-02-07 19:16 | XMS_ITS | Clinical Summary ---
Author Organization [facility] Address [address] [place], [place] [address] Care Team Providers Care Armhole Raiser Lockstitch Name Role Phone Idania Gaston Primary Care Provider Allergies No known active allergies Medications GABAPENTIN 300 mg capsuleIndications :Leucocytosis 06/27/2012 Activ e NOVOLOG FLEXPEN 100 unit/mL InPnIndications:Le ucocytosis 07/01/2012 Active LANTUS SOLOSTAR 100 unit/mL (3 mL) InPnIndications:Le ucocytosis 07/01/2012 Active VICTOZA 0.6 mg/0.1 mL (18 mg/3 mL) PnIjIndications:Le ucocytosis 07/01/2012 Active VIAGRA 50 mg tabletIndications: Leucocytosis 06/01/2012 Active Active Problems No known active problems Social History Tobacco Use Types Packs/Day Years Used Date Smoking Tobacco: Never Smokeless Tobacco: Current Snuff Alcohol Use Standard Drinks/Week Comments Yes 0 (1 standard drink = 0.6 oz pur e alcohol) occasionaly Sex and Gender Information Value Date Recorded Sex Assigned at Not on file Legal Sex Male 10:18 AM EST Gender Identity Not on file Sexual Orientation Not on file Last Filed Vital Signs Vital Sign Reading Time Taken Comments Blood Pressure 142/87 07/15/2012 1:39 PM EST Pulse 96 07/15/2012 1:39 PM EST Temperature - - Respiratory Rate - - Oxygen Saturation - - Inhaled Oxygen Concentration - - Weight 121.1 kg (267 lb) 07/15/2012 1:39 PM EST Height 185.4 cm (6' 1 ) 07/15/2012 1:39 PM EST Body Mass Index 35.23 07/15/2012 1:39 PM EST Plan of Treatment Health Maintenance Due Date Last Done Comments Anxiety Screening 1989 Depression Screening 1989 HIV Screening 1989 Hepatitis C Screening 1989 DTaP,Tdap,Td Vaccine (1 - Tdap) 1990 Hepatitis B Vaccine (1 of 3 - 19+ 3-dose series) 01/[address] Colonography 01/11/2016 Cologuard (FIT-DNA) 01/11/2016 Colonoscopy 01/11/2016 Colorectal Cancer Screening 01/11/2016 Diabetes Screening 01/11/2016 Fecal Occult Blood 01/11/2016 Sigmoidoscopy 01/11/2016 Pneumococcal Vaccine: 50+ (1 of 1 - PCV) 2021 Shingrix Vaccine (1 of 2) 2021 Covid-19 Vaccine (1 - 2023- season) 2024 Influenza Vaccine (Season Ended) 2025 Insurance [facility] PPO Care Teams Armhole Raiser Lockstitch Relationship Specialty Start Date End Date Idania Gaston PCP - General Unspecified 07/08/12
--- OUTSIDE RECORDS SUMMARY | 2025-02-07 19:16 | XMS_ITS | Encounter Summary ---
Author Organization [facility] Address [address] [place] [address] Care Team Providers Care Account General Manager Name Role Phone Idania Gaston DO Primary Care Provider [phone]- [phone] Idania Gaston DO Unavailable Encounter Details Date Type Department Care Team (Late st Contact Info) Description 11/26/2023 Abstract [facility] [address] [facility] [address] [place] [address] Idania Gaston, [address] [facility] [address] [place] [address] Social History Tobacco Use Types Packs/Day Years [...] on filedocumented in this encounter Care Teams Account General Manager Relationship Specialty Start Date End Date Idania Gaston DO [address] [place] [address] PCP - General Family Medicine 09/20/23 Idania Gaston DO [address] [place] [address] PCP - [facility] 09/06/23 09/05/24 documented as of this encounter
--- OUTSIDE RECORDS SUMMARY | 2025-02-07 19:17 | XMS_ITS | Encounter Summary ---
Author Organization [facility] Address [address] [place] [address] Care Team Providers Care Can Technician Name Role Phone Idania Gaston DO Primary Care Provider +1- [phone] Idania Gaston DO Unavailable [phone] Encounter Details Date Type Department Care Team (Late st Contact Info) Description 11/24/2023 Abstract [facility] [address] [facility] [address] [place] [address] Idania Gaston, [address] [facility] [address] [place] [address] Social History Tobacco Use Types Packs/Day Years [...] on filedocumented in this encounter Care Teams Can Technician Relationship Specialty Start Date End Date Idania Gaston DO [address] [place] [address] PCP - General Family Medicine 09/20/23 Idania Gaston DO [address] [place] [address] PCP - [facility] 09/06/23 09/05/24 documented as of this encounter
--- OUTSIDE RECORDS SUMMARY | 2025-02-07 19:17 | XMS_ITS | Encounter Summary ---
Author Organization [facility] Address [address] [place] [address] Care Team Providers Care Cementer Machine Applicator Name Role Phone Idania Gaston DO Primary Care Provider +1- [phone] Idania Gaston DO Unavailable [phone] Encounter Details Date Type Department Care Team (Late st Contact Info) Description 11/22/2023 Abstract [facility] [address] [facility] [address] [place] [address] Idania Gaston, [address] [facility] [address] [place] [address] Social History Tobacco Use Types Packs/Day Years [...] on filedocumented in this encounter Care Teams Cementer Machine Applicator Relationship Specialty Start Date End Date Idania Gaston DO [address] [place] [address] PCP - General Family Medicine 09/20/23 Idania Gaston DO [address] [place] [address] PCP - [facility] 09/06/23 09/05/24 documented as of this encounter
--- OUTSIDE RECORDS SUMMARY | 2025-02-07 19:17 | XMS_ITS | Encounter Summary ---
Author Organization [facility] Address [address] [place] [address] Care Team Providers Care Form Grader Name Role Phone Idania Gaston DO Primary Care Provider +1- [phone] Idania Gaston DO Unavailable [phone] Encounter Details Date Type Department Care Team (Late st Contact Info) Description 11/22/2023 Abstract [facility] [address] [facility] [address] [place] [address] Idania Gaston, [address] [facility] [address] [place] [address] Social History Tobacco Use Types Packs/Day Years [...] on filedocumented in this encounter Care Teams Form Grader Relationship Specialty Start Date End Date Idania Gaston DO [address] [place] [address] PCP - General Family Medicine 09/20/23 Idania Gaston DO [address] [place] [address] PCP - [facility] 09/06/23 09/05/24 documented as of this encounter
--- OUTSIDE RECORDS SUMMARY | 2025-02-07 19:17 | XMS_ITS | Encounter Summary ---
Author Organization [facility] Address [address] [place] [address] Care Team Providers Care Sap Security Consultant Name Role Phone Idania Gaston DO Primary Care Provider +1- [phone] Idania Gaston DO Unavailable [phone] Encounter Details Date Type Department Care Team (Late st Contact Info) Description 11/23/2023 External Result Encounter [facility] External Department Unsolicited Diamante Mondragon, DPM [address] [place] [address] Social History Tobacco Use Types Packs/Day Years [...] Procedure Name Priority Date/Time Associated Diagnosis Comments MR FOOT RIGHT WO IV CONTRAST 11/23/2023 3:29 PM EDT documented in this encounter Results * MR foot right wo IV contrast (11/23/2023 3:29 PM EDT) Anatomical Region Laterality Modality Lower Extremities, Foot Right Magnetic Resonance 11/23/2023 3:29 PM EDT Impressions 11/23/2023 3:38 PM EDT Soft tissue wound plantar aspect of the heel with associated mild cellulitis. No soft tissue abscess. No findings of osteomyelitis. Inferior calcaneal spurring. Postsurgical change. Impression dictated by: Ramirez Guadarrama M.D.11/23/2023 3:35 PM Dictation Location: [place] [address] Transcribed By: [facility] 11/23/23 1535 Dictated By: Ramirez Guadarrama DO 11/23/23 1529 Signed By: <Electronically signed by Ramirez Guadarrama DO in OV> 11/23/23 1535 Narrative 11/23/2023 3:38 PM EDT [facility] [address] [place] [address] MRI Report Signed Patient: Mina Forte MR#: [id number] : 1970 Acct:[id number] Age/Sex: 53 / M ADM Date: 11/20/23 Loc: Room: [address] [place] [address] Type: ADM IN Attending Dr: Amy Escudero DO Copies to: TIARA Levine DO Ordering Provider: Diamante Mondragon DPM Date of Service: 11/23/23 MR/MR foot RT wo con: ulcer right foot MRI right foot without contrast HISTORY: Ulcer involving the right calcaneus region. COMPARISON: Plain film imaging 11/21/2023. Artifact from calcaneal screw fixation present. This also metallic artifact from fusion of the midfoot. Adequate T1 fat marrow signal changes of the calcaneus identified. No significant bone marrow edema. Inferior calcaneal spurring. No bone defect of the plantar aspect the level of the inferior calcaneal spur identified. Plantar fascia intact. No worrisome fluid collections. Mild adjacent edema. Adequate Bony alignment. No acute bony findings. No worrisome tendinopathy. MR/MR foot RT wo con Procedure Note Radiology, Radiologist, MD - 11/23/2023 [facility] [address] [place] [address], [place] [id number] MRI Report Signed Patient: Mina Forte BMR#: [id number] : 1970Acct:[id number] Age/Sex: 53 / MADM Date: 11/20/23 Loc: Room: [id number]: ADM IN Attending Dr: Amy Escudero DO Copies to: TIARA Levine DO Ordering Provider: Diamante Mondragon DPM Date of Service: 11/23/23 MR/MR foot RT wo con: ulcer right foot MRI right foot without contrast HISTORY: Ulcer involving the right calcaneus region. COMPARISON: Plain film imaging 11/21/2023. Artifact from calcaneal screw fixation present. This also metallicartifact from fusion of the midfoot. Adequate T1 fat marrow signal changes of the calcaneusidentified. No significant bone marrow edema. Inferior calcaneal spurring. No bone defect of the plantaraspect the level of the inferior calcaneal spur identified. Plantar fascia intact. No worrisomefluid collections. Mild adjacent edema. Adequate Bony alignment. No acute bony findings. Noworrisome tendinopathy. MR/MR foot RT wo con IMPRESSION: Soft tissue wound plantar aspect of the heel with associated mildcellulitis. No soft tissue abscess. No findings of osteomyelitis. Inferior calcaneal spurring.Postsurgical change. Impression dictated by: Ramirez Guadarrama M.D.11/23/2023 3:35 PM Dictation Location: [place] [address] Transcribed By: [facility] 11/23/23 1535 Dictated By: Ramirez Guadarrama DO 11/23/23 1529 Signed By: <Electronically signed by Ramirez Guadarrama DO in OV> 11/23/23 1535 us Diamante Mondragon DPM IMG MRI PROCEDURES Final R esult documented in this encounter Visit Diagnoses Not on filedocumented in this encounter Care Teams Sap Security Consultant Relationship Specialty Start Date End Date Idania Gaston DO [address] [place] [address] PCP - General Family Medicine 09/20/23 Idania Gaston DO [address] [place] [address] PCP - [facility] 09/06/23 09/05/24 documented as of this encounter
--- OUTSIDE RECORDS SUMMARY | 2025-02-07 19:17 | XMS_ITS | Encounter Summary ---
Author Organization [facility] Address [address] [place] [address] Care Team Providers Care Barkeeper Name Role Phone Idania Gaston DO Primary Care Provider [phone]- [phone] Idania Gaston DO Unavailable [phone] Encounter Details Date Type Department Care Team (Late st Contact Info) Description 11/22/2023 Abstract [facility] [address] [facility] [address] [place] [address] Idania Gaston, [address] [facility] [address] [place] [address] Social History Tobacco Use Types Packs/Day Years [...] on filedocumented in this encounter Care Teams Barkeeper Relationship Specialty Start Date End Date Idania Gaston DO [address] [place] [address] PCP - General Family Medicine 09/20/23 Idania Gaston DO [address] [place] [address] PCP - [facility] 09/06/23 09/05/24 documented as of this encounter
--- OUTSIDE RECORDS SUMMARY | 2025-02-07 19:17 | XMS_ITS | Encounter Summary ---
Author Organization [facility] Address [address] [place] [address] Care Team Providers Care Digital Archivist Name Role Phone Idania Gaston DO Primary Care Provider [phone]- [phone] Encounter Details Date Type Department Care Team (Late st Contact Info) Description 09/22/2024 Abstract [facility] [address] [facility] [address] [place] [address] Idania Gaston DO [address] [place] [address] Social History Tobacco Use Types Packs/Day Years [...] Date Recorded Patient Health Questionnaire-2 Score 0 09/04/2024 Sex and Gender Information Value Date Recorded Sex Assigned at Not on file Legal Sex Male 7:11 PM EDT Gender Identity Not on file Sexual Orientation Not on file documented as of this encounter Plan of Treatment Not on file documented as of this encounter Visit Diagnoses Not on filedocumented in this encounter Care Teams Digital Archivist Relationship Specialty Start Date End Date Idania Gaston DO [address] [facility] [address] [place] [id number] PCP - General Family Medicine 09/20/23 documented as of this encounter
--- OUTSIDE RECORDS SUMMARY | 2025-02-07 19:17 | XMS_ITS | Encounter Summary ---
Author Organization [facility] Address [address] [place] [address] Care Team Providers Care Supervisor Carding Name Role Phone Idania Gaston DO Primary Care Provider [phone]- [phone] Encounter Details Date Type Department Care Team (Late st Contact Info) Description 09/19/2024 Abstract [facility] [address] [facility] [address] [place] [address] Idania Gaston DO [address] [place] [address] Social History Tobacco Use Types Packs/Day Years [...] on filedocumented in this encounter Care Teams Supervisor Carding Relationship Specialty Start Date End Date Idania Gaston DO [address] [facility] [address] [place] [id number] PCP - General Family Medicine 09/20/23 documented as of this encounter
--- OUTSIDE RECORDS SUMMARY | 2025-02-07 19:17 | XMS_ITS | Encounter Summary ---
Author Organization [facility] Address [address] [place] [address] Care Team Providers Care Education Faculty Member Name Role Phone Idania Gaston DO Primary Care Provider +1- [phone] Reason for Visit * Reason Comments Med Refill Encounter Details Date Type Department Care Team (Late st Contact Info) Description 11/01/2024 Refill [facility] [address] [facility] [address] [place] [address] Idania Gaston DO [address] [place] [address] Acquired hypothyroidism (CMS/HCC) Social History Tobacco Use Types Packs/Day Years [...] Date Recorded Patient Health Questionnaire-2 Score 0 10/02/2024 Sex and Gender Information Value Date Recorded Sex Assigned at Not on file Legal Sex Male 7:11 PM EDT Gender Identity Not on file Sexual Orientation Not on file documented as of this encounter Plan of Treatment Not on file documented as of this encounter Visit Diagnoses Diagnosis Acquired hypothyroidism (CMS/HCC) Unspecified hypothyroidism documented in this encounter Care Teams Education Faculty Member Relationship Specialty Start Date End Date Idania Gaston DO [address] [address] PCP - General Family Medicine 09/20/23 documented as of this encounter
--- OUTSIDE RECORDS SUMMARY | 2025-02-07 19:18 | XMS_ITS | Encounter Summary ---
Author Organization [facility] Address [address] [place] [address] Care Team Providers Care District Wildlife Manager Name Role Phone Idania Gaston DO Primary Care Provider +1- [phone] Idania Gaston DO Unavailable [phone] Encounter Details Date Type Department Care Team (Late st Contact Info) Description 01/07/2024 Orders Only [facility] [address] [facility] [address] [place] [address] Idania Gaston, [address] [place] [address] Social History Tobacco Use Types Packs/Day Years [...] Procedure Name Priority Date/Time Associated Diagnosis Comments DIABETIC RETINOPATHY SCREENING - OU - BOTH EYES Routine 01/07/2024 1:19 PM EDT documented in this encounter Results * (ABNORMAL) Diabetic Retinopathy Screening - OU - Both Eyes (01/07/2024 1:19 PM EDT) Anatomical Region Laterality Modality Head Other Iadnia Gaston DO OPHTH PHOTOGRAPHY Final Re sult documented in this encounter Visit Diagnoses Not on filedocumented in this encounter Care Teams District Wildlife Manager Relationship Specialty Start Date End Date Idania Gaston DO [address] [place] [address] PCP - General Family Medicine 09/20/23 Idania Gaston DO [address] [place] [address] PCP - [facility] 09/06/23 09/05/24 documented as of this encounter
--- OUTSIDE RECORDS SUMMARY | 2025-02-07 19:18 | XMS_ITS | Encounter Summary ---
Author Organization [facility] Address [address] [place] [address] Care Team Providers Care Vice President Of News Name Role Phone Idania Gaston DO Primary Care Provider +1- [phone] Idania Gaston DO Unavailable [phone] Encounter Details Date Type Department Care Team (Late st Contact Info) Description 01/17/2024 Abstract [facility] [address] [facility] [address] [place] [address] Idania Gaston, [address] [facility] [address] [place] [address] Social History Tobacco Use Types Packs/Day Years [...] on filedocumented in this encounter Care Teams Vice President Of News Relationship Specialty Start Date End Date Idania Gaston DO [address] [place] [address] PCP - General Family Medicine 09/20/23 Idania Gaston DO [address] [place] [address] PCP - [facility] 09/06/23 09/05/24 documented as of this encounter
--- OUTSIDE RECORDS SUMMARY | 2025-02-07 19:18 | XMS_ITS | Encounter Summary ---
Author Organization [facility] Address [address] [place] [address] Care Team Providers Care Furnace Worker Name Role Phone Idania Gaston DO Primary Care Provider [phone]- [phone] Encounter Details Date Type Department Care Team (Late st Contact Info) Description 01/01/2025 Abstract [facility] [address] [facility] [address] [place] [address] Idania Gaston DO [address] [facility] [address] [place] [address] Social History Tobacco Use Types Packs/Day Years Used Date Smoking Tobacco: Never Smokeless Tobacco: Never Alcohol Use Standard Drinks/Week Comments Never 0 (1 standard drink = 0.6 oz pure alcohol) caffeine: more than 4 cups per day coffee B1300 Health Literacy Answer Date Recor ded How often do you need to hav e someone help you when you read instructions, pamphlets, or other written material from your doctor or pharmacy? Never 12/05/2024 Social Connection and Isolat ion Panel [NHANES] Answer Date Recorded In a typical week, how many times do you talk on the phone with family, friends, or neighbors? More than three times a week 12/05/2024 How often do you get togethe r with friends or relatives? Three times a week 12/05/2024 How often do you attend chur or judaism services? 1 to 4 times per year 12/05/2024 Do you belong to any clubs o r organizations such as druze groups, unions, fraternal or athletic groups, or school groups? Yes 12/05/2024 How often do you attend meet ings of the clubs or organizations you belong to? 1 to 4 times per year 12/05/2024 Are you , , di vorced, , never , or living with a partner? 12/05/2024 AUDIT-C Answer Date Recorded Q1: How often do you have a drink containing alcohol? Never 12/05/2024 Q2: How many drinks containi ng alcohol do you have on a typical day when you are drinking? Patient does not drink Q3: How often do you have si x or more drinks on one occasion? Never 12/05/2024 Overall Financial Resource Strain (CARDIA) Answe r Date Recorded How hard is it for you to pa y for the very basics like food, housing, medical care, and heating? Somewhat hard 12/05/2024 PHQ-2 Answer Date Recorded Patient Health Questionnaire-2 Score 0 10/02/2024 [facility] - Occupational Stress Questionnaire Answer Date Recorded Do you feel stress - tense, restless, nervous, or anxious, or unable to sleep at night because your mind is troubled all the time - these days? To some extent 12/05/2024 Exercise Vital Sign Answer Date Recorde d On average, how many days pe r week do you engage in moderate to strenuous exercise (like a brisk walk)? 3 days 12/05/2024 On average, how many minutes do you engage in exercise at this level? 30 min 12/05/2024 Hunger Vital Sign Answer Date Recorded Within the past 12 months, y ou worried that your food would run out before you got the money to buy more. Never true 12/06/19 25 Within the past 12 months, t he food you bought just didn't last and you didn't have money to get more. Never true 12/05/2024 PRAPARE - Transportation Answer Date Re corded In the past 12 months, has l ack of transportation kept you from medical appointments or from getting medications? No 09/2024 In the past 12 months, has l ack of transportation kept you from meetings, work, or from getting things needed for daily living? No 12/05/2024 Housing Stability Vital Sign Answer Michael e Recorded In the last 12 months, was t here a time when you were not able to pay the mortgage or rent on time? Yes 12/05/2024 Number of Times Moved in the Last Year Not on fi le 12/05/2024 At any time in the past 12 m [facility], were you homeless or living in a [facility] (including now)? No 12/05/2024 Sex and Gender Information Value Date Recorded Sex Assigned at Not on file Legal Sex Male 7:11 PM EDT Gender Identity Not on file Sexual Orientation Not on file documented as of this encounter Plan of Treatment Not on file documented as of this encounter Visit Diagnoses Not on filedocumented in this encounter Care Teams Furnace Worker Relationship Specialty Start Date End Date Idania Gaston DO [address] [facility] [address] [place] [address] PCP - General Family Medicine 09/20/23 documented as of this encounter
--- OUTSIDE RECORDS SUMMARY | 2025-02-07 19:18 | XMS_ITS | Encounter Summary ---
Author Organization [facility] Address [address] [place] [address] Care Team Providers Care Director Utilization Management Name Role Phone Idania Gaston DO Primary Care Provider +1- [phone] Idania Gaston DO Unavailable [phone] Encounter Details Date Type Department Care Team (Late st Contact Info) Description 01/07/2024 Abstract [facility] [address] [facility] [address] [place] [address] Idania Gaston, [address] [facility] [address] [place] [address] Social History Tobacco Use Types Packs/Day Years [...] on filedocumented in this encounter Care Teams Director Utilization Management Relationship Specialty Start Date End Date Idania Gaston DO [address] [place] [address] PCP - General Family Medicine 09/20/23 Idania Gaston DO [address] [place] [address] PCP - [facility] 09/06/23 09/05/24 documented as of this encounter
--- OUTSIDE RECORDS SUMMARY | 2025-02-07 19:18 | XMS_ITS | Encounter Summary ---
Author Organization [facility] Address [address] [place] [address] Care Team Providers Care Maths Tutor Name Role Phone Idania Gaston DO Primary Care Provider +1- [phone] Reason for Referral * Consultation (Routine) - Authorized Specialty Diagnoses / Procedures Referred By Contac t Referred To Contact Pain Medicine Diagnoses Type 2 diabetes mellitus with peripheral neuropathy (CMS/HCC) Lumbar spondylosis Procedures [place] OFFICE/OUTPATIENT [facility] 60 MINUTES Idania Gaston DO [address] [facility] [address] [place] [address] Phone: tel: fax: Jey Ramos MD [facility] Referrals ONLY fax: Referral ID Status Reason Start Date Expiration Date Visits Requested Visits Authorized [id number] Authorized Specialty Services Required 01/24/2025 07/23/2025 1 1 Reason for Visit * Reason Onset Date Comments Referral 01/24/2025 Encounter Details Date Type Department Care Team (Late st Contact Info) Description 01/24/2025 Telephone [facility] [address] [facility] 230 [place] [address] Idania Gaston DO [address] [facility] [address] [place] [address] Referral Social History Tobacco Use Types Packs/Day Years [...] 12/05/2024 How often do you attend chur ch or advent services? 1 to 4 times per year 12/05/2024 Do you belong to any clubs o r organizations such as religion groups, unions, fraternal or athletic groups, or [...] Recorded Patient Health Questionnaire-2 Score 0 10/02/2024 [facility] - Occupational Stress Questionnaire Answer Date Recorded [...] any time in the past 12 m [facility], were you homeless or living in a correction (including now)? No 12/05/2024 Sex and Gender Information Value Date Recorded Sex Assigned at Not on file Legal Sex Male 7:11 PM EDT Gender Identity Not on file Sexual Orientation Not on file documented as of this encounter Miscellaneous Notes * Telephone Encounter - Melinda Dailey LPN - 01/30/2025 11:07 AM EDT Referral refaxed * Addendum Note - Idania Gaston DO - 01/24/2025 6:38 PM EDTAddended by: IDANIA GASTON on: 01/24/2025 06:38 PM Modules accepted: Orders * Telephone Encounter - Idania Gaston DO - 01/24/2025 6:38 PM EDT I put in referral to Dr Ramos office through the system. Please contact his office to make sure thisgoes through. thanks * Telephone Encounter - Sara Araiza - 01/24/2025 8:18 AM EDT Pt reached out this morning asking for a referral for pain management . He did say the provider wasaware of this. He would like the referral to go to Dr. Ramos pt didn't have the fax number. He did say it can't be faxed through the system. documented in this encounter Plan of Treatment Scheduled Referrals Name Type Priority Associated Diagnoses Orde r Schedule Ambulatory referral to Pain Medicine Outpatient Referral Routine Type 2 diabetes mellitus with peripheral neuropathy (CMS/HCC) Lumbar spondylosis Expected: 01/24/2025 (Approximate), Expires: 07/27/2025 documented as of this encounter Visit Diagnoses Diagnosis Type 2 diabetes mellitus with peripheral neuropathy (CMS/HCC)- Primary Lumbar spondylosis Lumbosacral spondylosis without myelopathy documented in this encounter Care Teams Maths Tutor Relationship Specialty Start Date End Date Idania Gaston DO [address] [facility] [address] [place] [address] PCP - General Family Medicine 09/20/23 documented as of this encounter
--- OUTSIDE RECORDS SUMMARY | 2025-02-07 19:18 | XMS_ITS | Clinical Summary ---
Author Organization [facility] Address [address] [place] [address] Care Team Providers Care Hat Cleaner Name Role Phone Idania Gaston DO Primary Care Provider [phone] Allergies Active Allergy Reactions Criticality Noted Date Comments Haloperidol Anxiety Low 09/25/2023 Latex Rash Medium 06/18/2022 Other Reaction(s): Unknown If on for long periods of time [place] Oil GI intolerance Low 06/16/2018 Runny nose, watery eyes Vancomycin Hives 02/28/2023 Wound Dressing Adhesive Rash Low 05/02/2022 Medications anastrozole (Arimidex) 1 MG chemo tablet take 1 tablet by mouth every morning (SWALLOW WHOLE WITH A DRINK OF WATER) 023 Active calcitriol (Rocaltrol) 0.25 MCG capsule Take 0.25 mcg by mouth in the morning. 023 Active carvedilol (Coreg) 6.25 MG tablet Take 6.25 mg by mouth in the morning and 6.25 mg in the evening. Take with meals. Active Testosterone 1.62 % gel apply 2 PUMPS topically every morning 023 Active cholecalciferol (D3-5) 5,000 Units tablet Daily. A ctive b complex-folic acid tablet Take 1 tablet by mouth Daily Active Continuous Blood Gluc Sensor (Dexcom G7 Sensor) misc as directed every 10 days for 90 days 023 Active Continuous Blood Gluc Technical Sales Representatives (Dexcom G7 Technical Sales Representatives) device 1 (one) time each day at the same time. 023 Active ondansetron ODT (Zofran-ODT) 4 MG disintegrating tabletIndications:Type 2 diabetes mellitus with foot ulcer, with long-term current use of insulin ([facility]) Take 2 tablets (8 mg) by mouth every 8 (eight) hours if needed for nausea or vomiting 30 tablet 1 024 Active Xphozah 30 MG tablet Take 30 mg by mouth Daily 024 Active glucagon (Gvoke HypoPen) 1 MG/0.2ML injection Inject 1 mg under the skin 1 (one) time if needed for low blood sugar 024 Active traZODone (Desyrel) 50 MG tabletIndications:Prima ry insomnia TAKE 1 TABLET(50 MG) BY MOUTH AT BEDTIME 90 tablet Active aspirin 81 MG chewable tablet Chew 81 mg in the morning. 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 30 mL 3 024 Active insulin lispro (HumaLOG KWIKPEN) 100 UNIT/ML injectionIndications:Ty pe 2 diabetes mellitus with Charcot's joint arthropathy ([facility]) 10 units breakfast, 25 units lunch/dinner, 10-15 units snacks PLUS CORRECTION 1:30>150 MG/DL MAX DAILY DOSE OF 100 UNITS 30 mL 3 025 Active midodrine (Proamatine) 10 MG tablet TAKE 1 TABLET BY MOUTH NEEDED DURING DIALYSIS FOR BLOOD PRESSURE SUPPORT 025 Active bumetanide (Bumex) 2 MG tabletIndications:End stage renal disease ([facility]) Take 1 tablet (2 mg) by mouth Daily 60 tablet 3 025 Active levothyroxine (Synthroid, Levoxyl) 100 MCG tabletIndications:Acqui red hypothyroidism (CMS/HCC) TAKE 1 TABLET BY MOUTH EVERY MORNING BEFORE A MEAL 90 tablet 025 Active pregabalin (Lyrica) 150 MG capsuleIndications:Neur opathy,Type 2 diabetes mellitus with peripheral neuropathy (CMS/HCC) Take 1 capsule (150 mg) by mouth in the morning and 1 capsule (150 mg) before bedtime. 60 capsule 3 025 Active amitriptyline (Elavil) 10 MG tablet Take 20 mg by mouth at bedtime 025 Active atorvastatin (Lipitor) 20 MG tabletIndications:Pure hypercholesterolemia (CMS/HCC) TAKE 1 TABLET(20 MG) BY MOUTH IN THE MORNING 90 tablet 3 025 Active LORazepam (Ativan) 1 MG tabletIndications:Anxie ty Take 1 tablet (1 mg) by mouth every 8 (eight) hours if needed for anxiety 10 tablet 025 Active doxycycline (Vibramycin) 100 MG capsuleIndications:Cell ulitis of lower extremity, unspecified laterality Take 1 capsule (100 mg) by mouth in the morning and 1 capsule (100 mg) before bedtime. Do all this for 10 days. Take with at least 8 ounces (large glass) of water, do not lie down for 30 minutes after. 20 capsule 025 2024 Active Problems Problem Noted Date Diagnosed Date Venous stasis dermatitis 09/20/2024 Lymphedema 09/20/2024 Chronic kidney disease with end stage renal disease on dialysis due to type 2 diabetes mellitus 10/13/2023 Hx of amputation of lesser toe, left (HCC) 10/02 Assessment & Plan (10/02/2023 9:28 AM EST): Following with podiatry Past history of chewing tobacco use 04/05/2023 Overview (10/13/2023): Right, s/p reconstructive surgery Acquired hypothyroidism 03/02/2023 Assessment & Plan (10/02/2023 9:24 AM EST): Stable, no changes needed to current treatment plan. Anxiety 03/02/2023 Assessment & Plan (05/16/2024 12:35 PM EDT): Discussed at length with pt and his . Will start lexapro. He is also going to start counseling. Ok to use ativan as needed as we are working on getting lexapro into his system. He is to call with any problems or not improving. Dependence on renal dialysis 03/02/2023 Assessment & Plan (10/02/2023 9:25 AM EST): Stable overall End stage renal disease 03/02/2023 Assessment & Plan (10/02/2023 9:24 AM EST): Currently on hemodialysis and working on getting renal transplant Essential hypertension 03/02/2023 Assessment & Plan (10/02/2023 9:23 AM EST): Prior to the patient's appointment today, I reviewed past laboratory testing and any diagnostics as it relates in the management of their hypertension. Current blood pressure readings were reviewed with the patient along with blood pressure goal of less than 140/90. Encouraged to continue a low sodium diet and will stay on current medications. Obstructive sleep apnea syndrome 03/02/2023 Assessment & Plan (10/02/2023 9:21 AM EST): cpap Peripheral vascular disease 03/02/2023 Assessment & Plan (10/02/2023 9:23 AM EST): Continue working on risk factor reduction and regular walking Insomnia 03/02/2023 Pure hypercholesterolemia 03/02/2023 Assessment & Plan (10/02/2023 9:25 AM EST): Prior to the patient's appointment today, I reviewed past laboratory testing and any diagnostics as it relates in the management of their cholesterol. Encouraged to stay on their statin medication daily and continue with a low cholesterol (mediterranean style) diet. Type 2 diabetes mellitus with foot ulcer 023 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 ar thropathy 03/02/2023 Assessment & Plan (12/05/2024 7:26 PM EDT): During the appointment today all pertinent labs, imaging, health maintenance, and glucose readings were reviewed. Encouraged to check blood glucose throughout the day with some fasting and some PP readings. They are to bring their glucose meter/cgm in to all appointments. All of the patients questions, treatment options, and current care plan and goals were discussed. A copy of this along with pertinent instructions were given to the patient at the end of the appointment. The patient voices understanding of all of this and is to call in between appointments if they have any problems or questions. Mina Forte control is stable overall. , Will stay on current medications. Assessment & Plan (08/07/2024 8:04 PM EST): During the appointment today all pertinent labs, imaging, health maintenance, and glucose readings were reviewed. Encouraged to check blood glucose throughout the day with some fasting and some PP readings. They are to bring their glucose meter/cgm in to all appointments. All of the patients questions, treatment options, and current care plan and goals were discussed. A copy of this along with pertinent instructions were given to the patient at the end of the appointment. The patient voices understanding of all of this and is to call in between appointments if they have any problems or questions. Mina Forte is doing very well and encouraged on this. , Instructions given today include: Insulin instructions and Dietary education. Will increase mounjaro, decrease lantus, and increase humalog for dinner and snacks. He is to work on decreasing snacking in the evening. Assessment & Plan (02/27/2024 2:36 PM EDT): During the appointment today all pertinent labs, imaging, health maintenance, and glucose readings were reviewed. Encouraged to check blood glucose throughout the day with some fasting and some PP readings. They are to bring their glucose meter/cgm in to all appointments. All of the patients questions, treatment options, and current care plan and goals were discussed. A copy of this along with pertinent instructions were given to the patient at the end of the appointment. The patient voices understanding of all of this and is to call in between appointments if they have any problems or questions. Mina Forte is making improvements and encouraged on this. , The patient is wearing their cgm on a daily basis and making decisions in regards to adjusting insulin daily as well for at least the last 60 days , Instructed on the importance of taking insulin before eating. If it has been more than 30-45 min since eating they should not give the meal dose but should just give a correction insulin dose. , Instructed on the proper insulin injection technique either in the abdomen, upper outer thigh, or back of the arm. They are to rotate injection sites to prevent scar tissue. , Instructions given today include: Hypoglycemia management, Insulin instructions, and Dietary education. Will change him from U-500 to basal/bolus insulin based on his eating schedule and decreased insulin needs. Assessment & Plan (10/02/2023 9:23 AM EST): During the appointment today all pertinent labs, imaging, health maintenance, and glucose readings were reviewed. Encouraged to check blood glucose throughout the day with some fasting and some PP readings. They are to bring their glucose meter/cgm in to all appointments. All of the patients questions, treatment options, and current care plan and goals were discussed. A copy of this along with pertinent instructions were given to the patient at the end of the appointment. The patient voices understanding of all of this and is to call in between appointments if they have any problems or questions. Mina Forte control is stable overall. , Discussed importance of checking blood glucose regularly and bringing them in to their appointment in order for me to better adjust their medications. , Instructions given today include: Hypoglycemia management, Insulin instructions, and Dietary education. Will add mounjaro. He is to monitor symptoms closely due to high risk for pancreatitis. GLP-1 and GLP-1/GIP agonist: Instructed on injection technique and the use of the medication. Pt has no hx of pancreatitis or fmh of mtc. Pt is to call if any significant vomiting, diarrhea, or reflux. Will decrease insulin with starting mounjaro. Vitamin D deficiency 03/02/2023 Type 2 diabetes mellitus with peripheral neuropa thy 03/02/2023 Assessment & Plan (12/05/2024 7:28 PM EDT): Discussed that opioids are not the correct treatment for neuropathy. He is in pain management and they are working on adjusting his medications to help with his symptoms. He is also getting a spinal cord stimulator to help. I will not prescribe narcotics for this issue as it is for chronic pain and he is under the care of pain management. He states he will just have to go back to the ER and they will give him pain medications. Assessment & Plan (10/02/2024 9:28 PM EST): He is on multiple medications for this but continues to struggle. Discussed that the only other option is to see pain management for this but not sure what they can do to help. He doesn't want to go there at this time. He does have an upcoming appt with vascular surgery and wants to see what they have to say about his legs first. 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, with long-term current use of insulin 03/02/2023 Long-term insulin use 03/02/2023 Class 3 severe obesity due t o excess calories with serious comorbidity and body mass index (BMI) of 40.0 to 44.9 in adult 03/02/2023 Assessment & Plan (10/02/2023 9:25 AM EST): He is working on improving his diet to help with weight loss Hypoglycemia due to type 2 diabetes mellitus 01/2022 Iron deficiency anemia 08/10/2022 Erectile dysfunction 06/18/2022 Hypogonadism male 06/18/2022 Overview (10/13/2023): -Testosterone, estradiol, FSH, LH, prolactin -Start on Androgel -Repeat PSA in 6 weeks after starting testosterone treatment -Follow up in clinic with labs Adenoma of left adrenal gland 05/02/2022 Overview (10/13/2023): seen by endocrinology Resolved Problems Problem Noted Date Diagnosed Date Resolved Date Abdominal wall seroma 11/03/20232023 Acute hyperkalemia 10/13/2023 Acute kidney injury superimposed on CKD 10/13/2023 02/25/2024 Cellulitis of foot, left 10/13/2023 Cellulitis of leg, right 10/13/2023 Chronic bronchitis 10/13/2023 COVID-19 10/13/2023 02/25/2024 Diabetic foot ulcer 10/13/2023 11/29/19 24 Diarrhea 10/13/2023 11/29/2023 Edema of right lower extremity 10/13/2023 11/29/2023 Fatigue 10/13/2023 02/25/2024 Metabolic acidosis 10/13/2023 Proteinuria due to type 2 diabetes mellitus 10/13/2023 02/25/2024 Vomiting 10/13/2023 11/29/2023 PD catheter dysfunction 10/13/2023 12/0 10/2023 Absolute anemia 03/02/2023 03/02/2023 Adrenal nodule 03/02/2023 02/25/2024 Assessment & Plan (10/02/2023 9:26 AM EST): Stable and consistent with adenoma Atopic dermatitis 03/02/2023 03/02/2023 Glaucoma 03/02/2023 10/02/2023 Microalbuminuria 03/02/2023 09/30/2023 Mild left ventricular systolic dysfunction 03/02/2023 09/30/2023 Non-pressure chronic ulcer o f other part of right foot with unspecified severity 03/02/202309/2024 Osteomyelitis of left foot 03/02/2023 0 09/30/2023 Subcutaneous mass of back 03/02/2023 Type 2 diabetes mellitus wit h ESRD (end-stage renal disease) 03/02/2023 12/05/2024 Diabetic retinopathy 11/23/2022 024 Diabetic neuropathy 08/10/2022 11/29/19 24 Overview (10/13/2023): mostly in his hands and feet 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, 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, trunk 08/10/2022 08/07/2024 Libido, decreased 06/18/2022 08/07/2024 Charcot's joint, unspecified ankle and foot 05/02/2022 02/25/2024 Overview (10/13/2023): right foot; reconstructive surgery. History of pancreatitis 05/02/2022 12/0 10/2023 Overview (10/13/2023): a couple episodes; medications induced; last episode 3 years ago. Hyperlipidemia 05/02/2022 02/25/2024 Open wound of left foot 05/02/2022/2 01/2024 Overview (10/13/2023): s/p surgery and healing; completed healed. 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 09/28/2017 01/07/2024 Encounters Date Type Department Care Team Description 02/06/2025 Abstract [facility] [address] [place] [phone] Idania Gaston, DO 02/01/2025 Refill [facility] [address] [place] [address] Idania Gaston, DO Acquired hypothyroidism ([facility]) 01/24/2025 Telephone [facility] [address] [place] [phone] Idania Gaston, DO Referral 01/12/2025 Refill [facility] [address] [place] [address] Melinda Dailey LPN 2025 Telephone [facility] [address] [place] [phone] Ceci Harris LPN Due for medicare wellness 01/05/2025 3:15 PM EDT Office Visit [facility] [address] [place] [address] Idania Gaston, DO 01/03/2025 Telephone [facility] [address] [place] [phone] Idania Gaston, DO Medication Question 01/03/2025 Abstract [facility] [address] [place] [phone] PetIdania louie, DO 01/01/2025 Abstract [facility] [address] [place] [phone] PetIdania louie, DO 12/29/2024 Telephone [facility] [address] [place] [phone] Idania Gaston, DO Medication Question 12/28/2024 Refill [facility] [address] [place] [address] Idania Gaston, DO Pure hypercholesterolemia (CMS/HCC) 12/06/2024 Telephone [facility] [address] [place] [phone] PetIdania louie, DO Medication Question 12/05/2024 2:00 PM EDT Office Visit [facility] [address] [place] [phone] Idania Gaston, DO 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 (CMS/HCC) (Primary Dx); Type 2 diabetes mellitus with peripheral neuropathy (CMS/HCC); Obstructive sleep apnea syndrome; Essential hypertension (CMS/HCC); Peripheral vascular disease (CMS/HCC); End stage renal disease (CMS/HCC); Type 2 diabetes mellitus with foot ulcer, with long-term current use of insulin (CMS/HCC); Acquired hypothyroidism (CMS/HCC); 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, with long-term current use of insulin (CMS/HCC); Class 3 severe obesity due to excess calories with serious comorbidity and body mass index (BMI) of 40.0 to 44.9 in adult; Chronic kidney disease with end stage renal disease on dialysis due to type 2 diabetes mellitus (CMS/HCC); Anxiety; Dependence on renal dialysis ([facility]); Pure hypercholesterolemia ([facility]); Long-term insulin use ([facility]); Hx of amputation of lesser toe, left ([facility]) ([facility]) 12/05/2024 Bamboo flowsheet [facility] [address] [place] [address] Idania Gaston, 12/05/2024 Travel 11/28/2024 Telephone [facility] [address] [place] [address] Diamante Mondragon DPM 11/27/2024 Telephone [facility] [address] [place] [address] Melinda Dailey LPN Med Refill 11/27/2024 Refill [facility] [address] [place] [address] Idania Gaston, DO Neuropathy; Type 2 diabetes mellitus with peripheral neuropathy ([facility]) 11/27/2024 Refill [facility] [address] [place] [address] Diamante Mondragon, DPM Neuropathy; Type 2 diabetes mellitus with peripheral neuropathy ([facility]) from Last 3 Months Immunizations Immunization Administration Dates Next Due Influenza, High Dose Seasonal, Preservative Free 06/18/2019 Influenza, injectable, quadrivalent, preservativ e free 11/05/2022 Influenza, seasonal, intradermal, preservative f ree 06/29/2014,06/26/2013 Zoster, Recombinant 11/13/2022 Family History Medical History Relation Name Comments Crohn's disease Daughter Heart disease Father Breast cancer Mother No Known Problems Sister Relation Name Status Comments Daughter Alive 1 daughter Father Mother Sister Alive 1 sister Social History Tobacco Use Types Packs/Day Years [...] How often do you attend chur or denominational services? 1 to 4 times per year 12/05/2024 Do you belong to any clubs o r organizations such as synagogue groups, unions, fraternal or athletic groups, or [...] Recorded Patient Health Questionnaire-2 Score 0 10/02/2024 [facility] - Occupational Stress [...] any time in the past 12 m [facility], were you homeless or living in a retirement (including now)? No 12/05/2024 Sex and Gender Information Value Date Recorded Sex Assigned at Not on file Legal Sex Male 7:11 PM EDT Gender Identity Not on file Sexual Orientation Not on file Last Filed Vital Signs Vital Sign Reading Time Taken Comments Blood Pressure 134/80 12/05/2024 1:42 PM EDT Pulse 82 12/05/2024 1:42 PM EDT Temperature 36.8 C (98.3 F) 12/05/2024 1:42 PM EDT Respiratory Rate - - Oxygen Saturation 100% 12/05/2024 1:42 PM EDT Inhaled Oxygen Concentration - - Weight 144 kg (317 lb) 12/05/2024 1:42 PM EDT Height 188 cm (6' 2 ) 12/05/2024 1:42 PM EDT Body Mass Index 40.7 12/05/2024 1:42 PM EDT Plan of Treatment Health Maintenance Due Date Last Done Comments CT Colonography 1971 FIT-DNA 1971 FIT 1971 FOBT 1971 Sigmoidoscopy 1971 Diabetes: Urine Protein Screening 05/19/2022 021 Medicare Annual Wellness (AWV) 09/30/2024 09/30/2023 , 09/30/2023 Diabetes: Hemoglobin A1C 10/11/2024 024, 07/11/2024, 02/25/2024, Additional history exists Diabetes: Retinopathy Screening 01/06/2025 01/07/2024, 12/17/2022, 06/12/2020, Additional history exists Influenza Vaccine (Season Ended) 2025 11/05/2022, 06/18/2019, 06/29/2014, Additional history exists Colonoscopy 06/20/2034 06/20/2024, 08/07, 09/03/2022, Additional history exists Colorectal Cancer Screening 06/20/2034 Procedures Procedure Name Priority Date/Time Associated Diagnosis Comments POCT GLYCOSYLATED HEMOGLOBIN (HGB A1C) Routine 02/25/2024 1:44 PM EDT 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 (CMS/HCC) DIABETIC RETINOPATHY SCREENING - OU - BOTH EYES Routine 01/07/2024 1:19 PM EDT COLONOSCOPY Routine 09/03/2022 12:00 PM EST MICROALBUMIN / CREATININE URINE RATIO Routine 05/19/2021 from Last 3 Months or Most Recently Relevant to Health Maintenance Results * POCT glycosylated hemoglobin (Hb A1C) docked device (02/25/2024 1:44 PM EDT) Hemoglobin A1C 6.3 Blood Venous blood specimen / Unknown 02/25/2024 1:44 PM EDT us Idania Gaston DO POINT OF CARE TEST ENTER/E DIT ORDERABLES Final Result * (ABNORMAL) Diabetic Retinopathy Screening - OU - Both Eyes (01/07/2024 1:19 PM EDT) Anatomical Region Laterality Modality Head Other us Idania Gaston DO OPHTH PHOTOGRAPHY Final Re sult * Colonoscopy (09/03/2022 12:00 PM EST) Anatomical Region Laterality Modality Endoscopy 09/03/2022 12:0 0 PM EST Narrative 09/03/2022 12:00 PM EST PERFORMED AT [facility] LOCATION:[id number] [facility] Procedure Note CONVERSION, GENERIC - 01/20/2023 PERFORMED AT [facility] LOCATION:[id number] [facility] Idania Gaston DO ENDOSCOPY PROCEDURE ORDERA BLES Final Result * Microalbumin / creatinine urine ratio (05/19/2021) UCREA 131 39 - 259 [facility] MALB 271.0 [facility] Comment:mALB reference range not established. MICROALB/CREAT RATIO 2,068.7 [facility] 05/19/2021 Idania Gaston DO LAB URINE ORDERABLES Final Result [facility] from Last 3 Months or Most Recently Relevant to Health Maintenance Insurance MEDICAID [place] [employer] MEDICARE Care Teams Hat Cleaner Relationship Specialty Start Date End Date Idania Gaston DO [address] [facility] [address] [place] [address] PCP - General Family Medicine 09/20/23
--- OUTSIDE RECORDS SUMMARY | 2025-02-07 19:18 | XMS_ITS | Encounter Summary ---
Author Organization [facility] Address [address] [place] [address] Care Team Providers Care Brain Wave Technician Name Role Phone Idania Gaston DO Primary Care Provider +1- [phone] Idania Gaston DO Unavailable [phone] Encounter Details Date Type Department Care Team (Late st Contact Info) Description 01/07/2024 Abstract [facility] [address] [facility] [address] [place] [address] Idania Gaston, [address] [facility] [address] [place] [address] Social History Tobacco Use Types Packs/Day Years [...] on filedocumented in this encounter Care Teams Brain Wave Technician Relationship Specialty Start Date End Date Idania Gaston DO [address] [place] [address] PCP - General Family Medicine 09/20/23 Idania Gaston DO [address] [place] [address] PCP - [facility] 09/06/23 09/05/24 documented as of this encounter
--- OUTSIDE RECORDS SUMMARY | 2025-02-07 19:18 | XMS_ITS | Encounter Summary ---
Author Organization [facility] Address [address] [place] [address] Care Team Providers Care Dehydrogenation Converter Helper Name Role Phone Idania Gaston DO Primary Care Provider [phone]- [phone] Encounter Details Date Type Department Care Team (Late st Contact Info) Description 02/06/2025 Abstract [facility] [address] [facility] [address] [place] [address] Idania Gaston DO [address] [facility] [address] [place] [address] Social History Tobacco Use Types Packs/Day Years [...] How often do you attend chur or orthodoxy services? 1 to 4 times per year 12/05/2024 Do you belong to any clubs o r organizations such as protestant groups, unions, fraternal or athletic groups, or [...] Score 0 10/02/2024 [facility] - Occupational Stress Questionnaire Answer Date Recorded [...] any time in the past 12 m [facility], were you homeless or living in a residential (including now)? No 12/05/2024 Sex and Gender Information Value Date Recorded Sex Assigned at Not on file Legal Sex Male 7:11 PM EDT Gender Identity Not on file Sexual Orientation Not on file documented as of this encounter Plan of Treatment Not on file documented as of this encounter Visit Diagnoses Not on filedocumented in this encounter Care Teams Dehydrogenation Converter Helper Relationship Specialty Start Date End Date Idania Gaston DO [address] [facility] [address] [place] [address] PCP - General Family Medicine 09/20/23 documented as of this encounter
--- OUTSIDE RECORDS SUMMARY | 2025-02-07 19:18 | XMS_ITS | Encounter Summary ---
Author Organization [facility] Address [address] [place] [address] Care Team Providers Care Certified Family Mediator Name Role Phone Idania Gaston DO Primary Care Provider [phone]- [phone] Reason for Visit * Reason Comments Med Refill Encounter Details Date Type Department Care Team (Late st Contact Info) Description 02/01/2025 Refill [facility] [address] [facility] [address] [place] [address] Idania Gaston, [address] [facility] [address] [place] [address] Acquired hypothyroidism (CMS/HCC) Social History Tobacco Use [...] week 12/05/2024 How often do you attend [facility] or mandaeism services? 1 to 4 times per year 12/05/2024 Do you belong to any clubs o r organizations such as jehovah's witness groups, unions, fraternal or athletic groups, or [...] Recorded Patient Health Questionnaire-2 Score 0 10/02/2024 [facility] - Occupational Stress [...] any time in the past 12 m [facility], were you homeless or living in a senior living (including now)? No 12/05/2024 Sex and Gender Information Value Date Recorded Sex Assigned at Not on file Legal Sex Male 7:11 PM EDT Gender Identity Not on file Sexual Orientation Not on file documented as of this encounter Miscellaneous Notes * Telephone Encounter - Melinda Dailey LPN - 02/01/2025 9:25 AM EDT Last ov 12/05/2024 RX sent in per Dr Emerson documented in this encounter Plan of Treatment Not on file documented as of this encounter Visit Diagnoses Diagnosis Acquired hypothyroidism (CMS/HCC) Unspecified hypothyroidism documented in this encounter Care Teams Certified Family Mediator Relationship Specialty Start Date End Date Idania Gaston DO [address] [place] [address] PCP - General Family Medicine 09/20/23 documented as of this encounter
--- OUTSIDE RECORDS SUMMARY | 2025-02-07 19:18 | XMS_ITS | Encounter Summary ---
Author Organization [facility] Address [address] [place] [address] Care Team Providers Care Garment Examiner Name Role Phone Idania Gaston DO Primary Care Provider [phone]- [phone] Encounter Details Date Type Department Care Team (Late st Contact Info) Description 01/03/2025 Abstract [facility] [address] [facility] [address] [place] [address] Idania Gaston DO [address] [facility] [address] [place] [address] Social History Tobacco Use Types Packs/Day Years [...] How often do you attend chur or catholic services? 1 to 4 times per year 12/05/2024 Do you belong to any clubs o r organizations such as oriental orthodox groups, unions, fraternal or athletic groups, or [...] Recorded Patient Health Questionnaire-2 Score 0 10/02/2024 [facility] - Occupational Stress Questionnaire Answer Date Recorded [...] any time in the past 12 m [facility], were you homeless or living in a long-term (including now)? No 12/05/2024 Sex and Gender Information Value Date Recorded Sex Assigned at Not on file Legal Sex Male 7:11 PM EDT Gender Identity Not on file Sexual Orientation Not on file documented as of this encounter Plan of Treatment Not on file documented as of this encounter Visit Diagnoses Not on filedocumented in this encounter Care Teams Garment Examiner Relationship Specialty Start Date End Date Idania Gaston DO [address] [facility] [address] [place] [address] PCP - General Family Medicine 09/20/23 documented as of this encounter
--- OUTSIDE RECORDS SUMMARY | 2025-02-07 19:18 | XMS_ITS | Encounter Summary ---
Author Organization [facility] Address [address] [place] [address] Care Team Providers Care Hairspring Studder Name Role Phone Idania Gaston DO Primary Care Provider +1- [phone] Idania Gaston DO Unavailable [phone] Encounter Details Date Type Department Care Team (Late st Contact Info) Description 12/27/2023 Abstract [facility] [address] [facility] [address] [place] [address] Idania Gaston, [address] [facility] [address] [place] [address] Social History Tobacco Use Types Packs/Day Years [...] on filedocumented in this encounter Care Teams Hairspring Studder Relationship Specialty Start Date End Date Idania Gaston DO [address] [place] [address] PCP - General Family Medicine 09/20/23 Idania Gaston DO [address] [place] [address] PCP - [facility] 09/06/23 09/05/24 documented as of this encounter
--- OUTSIDE RECORDS SUMMARY | 2025-02-07 19:19 | XMS_ITS | Clinical Summary ---
Author Organization [email or web address] [facility] tem Address [id number] [address] [place] [address] Care Team Providers Care Customer Support Manager Name Role Phone Herojacy Idania M Primary Care Provider [phone]- [phone] Allergies Active Allergy Reactions Criticality Noted Date Comments Pulteney Seed Abdominal Pain Low 06/16/2018 Runny nose, watery eyes Vancomycin Hives 02/28/2023 Medications gabapentin (NEURONTIN) 100 mg capsule Take 200 mg by mouth 4 (four) times a day. Active lisinopril (PRINIVIL,ZESTR IL) 10 mg tablet Take 10 mg by mouth daily. Active atorvastatin (LIPITOR) 20 mg tablet Take 20 mg by mouth daily. Active levothyroxine sodium (TIROSINT) 25 mcg capsule Take 75 mcg by mouth daily. Active pregabalin (LYRICA) 150 mg capsule Take 1 capsule (150 mg total) by mouth in the morning and 1 capsule (150 mg total) before bedtime. Active insulin lispro protamin-lispro (HumaLOG Mix 50-50 KwikPen) 100 unit/mL (50-50) insulin pen Inject under the skin 2 (two) times a day before meals. 100u am 90u at dinnertime Active amitriptyline (ELAVIL) 10 mg tablet Take 2 tablets (20 mg total) by mouth nightly. 01/23/20 Encounters Date Type Department Care Team Description 01/03/2025 Travel 12/30/2024 3:49 PM EDT - 12/30/2024 11:59 PM EDT Hospital Encounter [facility] ([facility]) [address] [address] Diagnosis unknown (Primary Dx) Discharge Disposition: Home 12/30/2024 3:32 PM EDT - 12/30/2024 3:48 PM EDT Hospital Encounter [facility] ([facility]) [address] [place] [address] Diagnosis unknown (Primary Dx) Discharge Disposition: Home 12/06/2024 8:38 PM EDT - 12/06/2024 8:56 PM EDT Emergency [facility] [address] [facility] [facility] [place] [address] Chronic pain of both feet (Primary Dx) Discharge Disposition: Home 12/06/2024 Travel 12/05/2024 3:15 PM EDT - 12/05/2024 4:05 PM EDT Emergency [facility] [address] [place] [address] Chronic pain of both feet (Primary Dx) Discharge Disposition: Home 12/05/2024 Travel 11/27/2024 8:17 PM EDT - 11/27/2024 8:57 PM EDT Emergency [facility] - Emergency [address] [facility] [place] [address] Concepcion Velarde MD Medication refill (Primary Dx) Discharge Disposition: Home 11/27/2024 5:44 PM EDT - 11/27/2024 6:20 PM EDT Emergency [facility] Emergency [address] [place] [address] Medication refill (Primary Dx) Discharge Disposition: Home 11/27/2024 Travel from Last 3 Months Family History Medical History Relation Name Comments Heart attack Father Relation Name Status Comments Father Social History Tobacco Use Types Packs/Day Years Used Date Smoking Tobacco: Never Smokeless Tobacco: Current Chew Tobacco Cessation:Ready to Q uit: Not Asked; Counseling Given: Not Answered Alcohol Use Standard Drinks/Week Comments No 0 (1 standard drink = 0.6 oz pur e alcohol) AUDIT-C Answer Date Recorded Frequency of Alcohol Consumption Never 06/16/2018 Average Number of Drinks Not on file 018 Frequency of Binge Drinking Not on file 06/06 Childcare Answer Date Recorded Childcare Unknown 02/15/2019 Employment Answer Date Recorded Employment Unknown 02/15/2019 Hunger Screening Answer Date Recorded Within the past 12 months we worried whether our food would run out before we got money to buy more. Never True 12/06/2024 Within the past 12 months th e food we bought just didn't last and we didn't have money to get more. Never True 12/06/2024 Purpose - Life Answer Date Recorded Purpose and direction in life Unknown Sex and Gender Information Value Date Recorded Sex Assigned at Not on file Legal Sex Male 12:06 PM EDT Gender Identity Not on file Sexual Orientation Not on file Last Filed Vital Signs Vital Sign Reading Time Taken Comments Blood Pressure 155/75 12/06/2024 8:51 PM EDT Pulse 86 12/06/2024 8:51 PM EDT Temperature 36.7 C (98 F) 12/06/2024 8:40 PM EDT Respiratory Rate 20 12/06/2024 8:51 PM EDT Oxygen Saturation 95% 12/06/2024 8:51 PM EDT Inhaled Oxygen Concentration - - Weight 136.1 kg (300 lb) 12/06/2024 8:40 PM EDT Height 188 cm (6' 2 ) 12/06/2024 8:40 PM EDT Body Mass Index 38.52 12/06/2024 8:40 PM EDT Plan of Treatment Upcoming Encounters Date Type Department Care Team (Late st Contact Info) Description 02/20/2025 2:00 PM EDT Office Visit [facility] [address] [place] [address] [place] [place] [address] Chintan Quinn, DO [address] [place] [address], [address], [place] [address] Health Maintenance Due Date Last Done Comments Diabetic Ophthalmology Exam 1971 Tobacco Counseling 1971 Depression Screening 1983 Adult BMI Follow Up Plan 1989 Diabetic Foot Exam 1989 Zoster (Shingles) Vaccine (2 of 2) 01/08/20232022 Influenza Vaccine 05/07/2025 06/20/2024, , 06/22/2022, Additional history exists Adult BMI Screening 12/06/2025 12/06/2024 Tobacco Screening 12/06/2025 12/06/2024 DTaP,Tdap and Td Vaccines (3 - Td or Tdap) 05/01/2031 05/01/2021, 06/06/2010 Medical Devices Not on file Procedures Procedure Name Priority Date/Time Associated Diagnosis Comments BUN Routine 12/30/2024 7:55 AM EDT Diagnosis unknown BUN Routine 12/30/2024 5:30 AM EDT Diagnosis unknown from Last 3 Months Results * (ABNORMAL) BUN (12/30/2024 7:55 AM EDT) Only the most recent of2 resultswithin the time period is included. BUN 58(H) 5 - 23 mg/dL 12/30/2024 5:21 PM EDT [facility] 12/30/2024 7:55 AM EDT 12/30/2024 3:58 PM EDT us Adebayo Rosado MD LAB BLOOD ORDERABLES Final Res ult [facility] [address] [facility] [place] [address] from Last 3 Months Insurance MEDICAID [place] [employer] MEDICARE Care Teams Customer Support Manager Relationship Specialty Start Date End Date Idania Gaston DO [address] [place] [id number] PCP - General 06/15/18
--- OUTSIDE RECORDS SUMMARY | 2025-02-07 19:19 | XMS_ITS | Clinical Summary ---
Author Organization [facility] Address [address] [place] [address] Care Team Providers Care It Operations Manager Name Role Phone Idania Gaston DO Primary Care Provider [phone] Ignacio Clay MD Unavailable [phone] Adams Tate STORE CASHIER Unavailable [phone] Delano Bardales MD Unavailable Sivan Keller MD Unavailable [phone] Desire Bueno STORE CASHIER Unavailable [phone] Allergies Active Allergy Reactions Criticality Noted Date Comments Adhesive Rash Low 05/02/2022 Adhesive Tape-Silicones Rash Medium 06/18/2022 Haloperidol Anxiety Low 09/25/2023 Latex Rash Medium 06/18/2022 If on for long periods of time Ceiba Oil GI intolerance Low 06/16/2018 Runny nose, watery eyes Vancomycin Hives Medium 02/28/2023 Other reaction(s): Unknown Medications Medication Sig Dispensed Refills Start Date End Date Status atorvastatin (Lipitor) 20 mg tablet Take 20 mg by mouth in the morning. Active carvedilol (Coreg) 12.5 mg tablet Take 12.5 mg by mouth with breakfast and with evening meal. Active cholecalciferol (D3-5) 5,000 Units tablet Take 1 tablet by mouth in the morning. Active levothyroxine (Synthroid, Levoxyl) 100 mcg tablet Take 100 mcg by mouth before breakfast. Active b complex 0.4 mg tablet Take 1 tablet by mouth in the morning and at bedtime. Active calcitriol (Rocaltrol) 0.25 mcg capsule Take 0.25 mcg by mouth in the morning. 02/12/2023 Active calcium acetate (Phoslo) 667 mg capsule Take 667 mg by mouth in the morning. 02/10/2023 Active testosterone 1.62 % (20.25 mg/1.25 gram) gel in packetIndications:Hy pogonadism in male APPLY 1 PACKET DIRECTED ONCE DAILY 37.5 g 05/15/2024 Active Additional Information Patient taking differently: 1 Application Topical Daily, Reported on 07/19/2024 insulin glargine (Lantus) 100 unit/mL injection vial Inject 60 Units under the skin in the morning. Active insulin lispro (HUMALOG KWIKPEN INSULIN SUBQ) Inject 10 Units under the skin with breakfast, with lunch, and with evening meal. Active aspirin 81 mg chewable tabletIndications:Ca rdiovascular stress test abnormal Chew 1 tablet (81 mg) in the morning. 90 tablet 3 06/22/2024 Active tenapanor (Xphozah) 30 mg tablet Take 30 mg by mouth two times daily. Active pregabalin (Lyrica) 150 mg capsule Take 150 mg by mouth two times daily. Active bumetanide (Bumex) 2 mg tablet Take 2 mg by mouth in the morning. 09/19/2024 Active escitalopram (Lexapro) 10 mg tablet Take 10 mg by mouth in the morning. 09/13/2024 Active midodrine (Proamatine) 10 mg tablet TAKE 1 TABLET BY MOUTH NEEDED DURING DIALYSIS FOR BLOOD PRESSURE SUPPORT 09/13/2024 Active Qutenza 8 % patch APPLY THE CONTENTS OF 1 KIT TOPICALLY EVERY 3 MONTHS. TO BE ADMINISTERED BY A HEALTHCARE PROFESSIONAL 07/07/2024 Active cyanocobalamin (Vitamin B-12) 1,000 mcg tablet in the morning. 10/18/2023 Active dexAMETHasone (Decadron) 1 mg tablet Take 1 tablet as needed by oral route as directed. Active doxycycline (Vibramycin) 100 mg capsule take 1 capsule by mouth twice daily for 10 days Active DULoxetine (Cymbalta) [address] capsule in the morning. Active ergocalciferol (Vitamin D-2) 1.25 MG (26012 Units) capsule in the morning. Active gabapentin (Neurontin) 300 mg capsule Take 300 mg by mouth. 05/17/2024 Active glucagon 1 mg/0.2 mL auto-injector in the morning. 01/25/2024 Active ibuprofen 600 mg tablet TAKE 1 TABLET BY MOUTH EVERY 6 HOURS NEEDED FOR PAIN. DO NOT EXCEED 4 DOSES IN A 24 HOUR PERIOD 08/29/2024 Active insulin aspart (NovoLOG) 100 unit/mL (3 mL) injection pen 02/28/2024 Active lidocaine-prilocaine (Emla) 2.5-2.5 % cream APPLY TO SITE ONE HOUR BEFORE TREATMENT 3 DAYS PER WEEK 12/11/2023 Active linezolid (Zyvox) 600 mg tablet Take 1 tablet by mouth Twice daily at 6am and 6pm. 11/24/2023 Active LORazepam (Ativan) 1 mg tablet Take 1 mg by mouth every 8 (eight) hours if needed. 05/19/2024 Active NIFEdipine XL (Procardia XL) 90 mg 24 hr tablet Use 1 tablet in the mouth or throat 1 (one) time each day. Active ondansetron ODT (Zofran-ODT) 4 mg disintegrating tablet Take 8 mg by mouth every 8 (eight) hours if needed. 11/29/2023 Active Ozempic 2 mg/dose (8 mg/3 mL) pen injector Inject 2 mg under the skin every 7 (seven) days. 02/25/2024 Active sevelamer carbonate (Renvela) 800 mg tablet TAKE 2 TABLETS BY MOUTH THREE TIMES DAILY WITH MEALS 07/26/2024 Active Lokelma 10 gram packet MIX AND DRINK DIRECTED WHEN MISSING DIALYSIS TREATMENT 10/30/2024 Active Velphoro 500 mg tablet,chewable TAKE 2 TABLETS BY MOUTH THREE TIMES DAILY WITH MEALS AND 1 WITH SNACKS 12/13/2023 Active Mounjaro 10 mg/0.5 mL pen injector ADMINISTER 10 MG UNDER THE SKIN 1 TIME EVERY WEEK Active traZODone (Desyrel) 50 mg tablet TAKE 1 TABLET(50 MG) BY MOUTH AT BEDTIME 08/07/2024 Active amitriptyline (Elavil) 10 mg tabletIndications:Ch ronic painful diabetic neuropathy (CMS/HCC),Neuropathi c pain Take 1 tablet (10 mg) by mouth at bedtime. 30 tablet 1 11/23/2024 Active Additional Information Patient not taking.Reported on 12/21/2024 diazePAM (Valium) 10 mg tabletIndications:Ne uropathic pain Take 1 tablet (10 mg) by mouth 1 (one) time for 1 dose. To be taken 30 minutes prior to your scheduled MRI. Please have a otr van cdl truck driver (do not drive) 1 tablet 12/15/2024 Active methocarbamol (Robaxin) 500 mg tablet 1-2 tabs po 8hrs prn back spasms 30 tablet 12/27/2024 Active anastrozole (Arimidex) 1 mg chemo tabletIndications:Hy pogonadism male Take 1 tablet (1 mg total) by mouth in the morning Swallow whole with a drink of water. 90 tablet 3 2024 5 tapentadol (Nucynta) 50 mg tabletIndications:Ne uropathic pain,Diabetic neuropathy with neurologic complication (CMS/HCC) Take 1 tablet (50 mg) by mouth if needed in the morning, at noon, and at bedtime for severe pain (8-10 pain score). 90 tablet 12/21/2024 5 Active Problems Problem Noted Date Diagnosed Date Intervertebral disc disorder s with radiculopathy, lumbar region 12/21/2024 Neuropathic pain 11/23/2024 Lymphedema 09/20/2024 Venous stasis dermatitis 09/20/2024 Enlarged lymph node 08/08/2024 Current tobacco use 07/11/2024 Preop examination 06/22/2024 Cardiovascular stress test abnormal 06/22/2024 Diabetic foot ulcers 06/14/2024 Chronic sinusitis 06/14/2024 COVID-19 06/14/2024 Anemia 06/14/2024 Adrenal nodule 04/05/2023 Overview (04/05/2023): left adrenal adenoma Past history of chewing tobacco use 04/05/2023 Overview (04/05/2023): Right, s/p reconstructive surgery Anxiety 03/02/2023 04/05/2023 Insomnia 03/02/2023 04/05/2023 Osteomyelitis of left foot 03/02/202304/05 Diabetic retinopathy 11/23/2022 Diabetic neuropathy with neurologic complication 08/10/2022 End stage renal disease 08/10/2022 Hypoglycemia due to type 2 diabetes mellitus 01/2022 Iron deficiency anemia 08/10/2022 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, 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, trunk 022 Libido, decreased 06/18/2022 Erectile dysfunction 06/18/2022 Hypogonadism male 06/18/2022 Overview (06/18/2022): -Testosterone, estradiol, FSH, LH, prolactin -Start on Androgel -Repeat PSA in 6 weeks after starting testosterone treatment -Follow up in clinic with labs Adenoma of left adrenal gland 05/02/2022 History of pancreatitis 05/02/2022 Open wound of left foot 05/02/2022 Type 2 diabetes mellitus 05/02/2022 Charcot's joint of foot 05/02/2022 Hyperlipidemia 05/02/2022 Ulcer of right foot with fat layer exposed 05/23 Vitamin D deficiency 05/08/2021 Diabetic neuropathic arthropathy 09/19/2020 Osteomyelitis 07/28/2019 PVD (peripheral vascular disease) 11/02/2018 Mild left ventricular systolic dysfunction 05/27 Obstructive sleep apnea syndrome 05/17/2018 Type 2 diabetes mellitus wit h 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 edema, unspecified eye 09/28/2017 Mild nonproliferative diabet ic retinopathy associated with type 2 diabetes mellitus 09/28/2017 04/27/2023 Hypertension, essential 05/03/2017 long-term current use of insulin 05/03/2017 Morbid obesity 05/03/2017 Disorder of adrenal gland 02/25/2017 Acquired hypothyroidism 06/11/2015 Glaucoma 06/11/2015 Microalbuminuria 06/11/2015 Polyneuropathy due to type 2 diabetes mellitus 1 Pure hypercholesterolemia 06/11/2015 Encounters Date Type Department Care Team Description 01/22/2025 Refill [facility] [address] [place] [address] Adams Tate CNP Hypogonadism male 01/15/2025 Telephone [facility] [address] [place] [address] [place] [address] Albania Hernández LPN 01/02/2025 Orders Only [facility] [address] [place] [address] [place] [address] Valerie Toribio CNP 01/02/[address] [place] [address] Dian Ramos RN 12/27/2024 2:10 AM EDT - 12/27/2024 2:45 AM EDT Emergency [facility] Emergency [address] [place] [address] Tanvir Chakraborty MD Chronic bilateral low back pain without sciatica (Primary Dx); Neuropathy Discharge Disposition: Home or Self Care (01) 12/27/2024 Travel 12/26/[address] [place] [address] Albania Hernández LPN 12/22/[address] [place] [address] Albania Hernández LPN 12/21/2024 1:00 PM EDT Follow-Up [address] [place] [address] Ted Cooley MD Intervertebral disc disorders with radiculopathy, lumbar region (Primary Dx); Neuropathic pain; Diabetic neuropathy with neurologic complication (CMS/HCC) 12/21/2024 10:30 AM EDT Office Visit [facility] V[facility] [address] [place] [address] Desire Bueno CNP Lymphadenopathy (Primary Dx); Nonspecific abnormal findings on diagnostic imaging 12/21/2024 Orders Only [address] [place] [address] Ted Cooley MD 12/15/2024 Telephone [facility] Transplant [address] [place] [address] Melinda Hidalgo, JACOB 12/14/2024 Telephone Valorie Vazquez [facility] [address] [place] [address] Anna Enciso MA 12/12/2024 7:19 AM EDT - 12/12/2024 11:59 PM EDT Hospital Encounter [facility] [address] [place] [address] [place] [phone] Neuropathic pain; Preop examination Discharge Disposition: Home or Self Care (01) 12/12/2024 Telephone [facility] [address] [place] [address] [place] [address] Preet Bueno MA MRI 12/05/2024 Telephone [facility] [address] [place] [address] [place] [address] Albania Hernández DISTRIBUTION DISPATCHER 12/04/2024 Telephone [facility] [address] [place] [address] [place] [phone] Albania Hernández, DISTRIBUTION DISPATCHER 11/23/2024 1:30 PM EDT Office Visit [facility] [address] [place] [address] [place] [phone] Ted Cooley MD Chronic painful diabetic neuropathy (CMS/HCC) (Primary Dx); Diabetic neuropathy with neurologic complication (CMS/HCC); Neuropathic pain; Preop examination; PVD (peripheral vascular disease); Peripheral artery disease 11/14/2024 Telephone [facility] Wound Care [address] [place] [phone] Ryland Smith MA 11/07/2024 11:30 AM EST Telemedicine Formerly named [facility] Infectious Disease [address] [place] [address] Leslie Morel MD Diabetic ulcer of heel associated with diabetes mellitus due to underlying condition, limited to breakdown of skin, unspecified laterality (CMS/HCC) (Primary Dx) 11/07/2024 Telephone Formerly named [facility] Infectious Disease [address] [place] [address] Albania Mar MA from Last 3 Months Immunizations Name Administration Dates Next Due Influenza, High Dose Seasonal, Preservative Free 06/17/2019 Influenza, injectable, quadrivalent, preservativ e free 11/05/2022,06/18/2019 Influenza, seasonal,quadrivalent, preservative f ree 06/29/2014,06/26/2013 Billie Sars-Cov-2 Vaccination 08/11/2021,2020 Zoster, Recombinant 11/13/2022 Family History Medical History Relation Name Comments Crohn's disease Daughter perforated b owel Heart attack Father Mina gifford age 26 Heart disease Father Mina gifford Cancer Father's Brother Unknown typ e and region Breast cancer Maternal Grandmother Breast cancer Mother age 5 3, METS to brain No Known Problems Sister half-siste r Relation Name Status Comments Daughter Father Mina gifford Father's Brother Alive Maternal Grandmother Mother Sister Social History Tobacco Use Types Packs/Day Years Used Date Smoking Tobacco: Never Smokeless Tobacco: Current Chew Last attempted to quit: 07/2022 Tobacco Cessation:Ready to Q uit: Not Asked; Counseling Given: Not Answered Comments:Check status Alcohol Use Standard Drinks/Week Comments Not Currently 0 (1 standard drink = 0.6 oz pure alcohol) Previous occasional use - rare / once per year [employer] Answer Date Recorded In the past 12 months has e [employer] gas, oil, or water Sellf threatened to shut off services in your home? No 09/12/2024 Humiliation, Afraid, Rape, and Kick questionnair e Answer Date Recorded Within the last year, have y ou been afraid of your partner or ex-partner? No 12/21/2024 Within the last year, have y ou been humiliated or emotionally abused in other ways by your partner or ex-partner? No Within the last year, have y ou been kicked, hit, slapped, or otherwise physically hurt by your partner or ex-partner? No 12/21/2024 Within the last year, have y ou been raped or forced to have any kind of sexual activity by your partner or ex-partner? No 12/21/2024 Overall Financial Resource Strain (CARDIA) Answe r Date Recorded How hard is it for you to pa y for the very basics like food, housing, medical care, and heating? Not hard at all 09/12/2024 PHQ-2 Answer Date Recorded Patient Health Questionnaire-2 Score 0 12/21/2024 Transportation Answer Date Recorded In the past 12 months, has l ack of transportation kept you from medical appointments or from getting medications? No 09/12/2024 Lack of Transportation (Non-Medical) Not on file 09/12/2024 Housing Stability Vital Sign Answer Michael e Recorded In the last 12 months, was t here a time when you were not able to pay the mortgage or rent on time? No 09/12/2024 Number of Times Moved in the Last Year Not on fi le 09/12/2024 At any time in the past 12 m [facility], were you homeless or living in a fdc (including now)? No 09/12/2024 Hunger Vital Sign Answer Date Recorded Within the past 12 months, y ou worried that your food would run out before you got the money to buy more. Never true 09/12/19 25 Ran Out of Food in the Last Year Not on file 09/12/2024 Sex and Gender Information Value Date Recorded Sex Assigned at Male 11/23/2024 1:08 PM EDT Gender Identity Male 11/23/2024 1:08 PM EDT Sexual Orientation Don't know 11/23/2024 1: 08 PM EDT Last Filed Vital Signs Vital Sign Reading Time Taken Comments Blood Pressure 152/80 12/27/2024 2:43 AM EDT Pulse 77 12/27/2024 2:43 AM EDT Temperature 36.5 C (97.7 F) 12/27/2024 2:04 AM EDT Respiratory Rate 17 12/27/2024 2:43 AM EDT Oxygen Saturation 99% 12/27/2024 2:43 AM EDT Inhaled Oxygen Concentration - - Weight 145 kg (320 lb) 12/27/2024 2:01 AM EDT Height 188 cm (6' 2 ) 12/27/2024 2:01 AM EDT Body Mass Index 41.09 12/27/2024 2:01 AM EDT Plan of Treatment Health Maintenance Due Date Last Done Comments CT Colonography 1971 FIT-DNA 1971 FIT 1971 FOBT 1971 Medicare Annual Wellness (AWV) 1971 Sigmoidoscopy 1971 Pneumococcal Vaccine: Pediatrics (0 to 5 Years) and At-Risk Patients (6 to 64 Years) (1 of 2 - PCV) 1977 Diabetes: Retinopathy Screening 1981 Adult Tetanus 1993 Diabetes: Urine Protein Screening 05/19/2022 05/19/2021 Zoster Vaccines (2 of 2) 01/08/2023 11/13/2022 COVID-19 Vaccine ( season) 2024 08/12/2021, 08/11/2021, 01/23/2021, Additional history exists Diabetes: Hemoglobin A1C 10/11/2024 024, 04/27/2023, 04/27/2023, Additional history exists Influenza Vaccine (Season Ended) 2025 11/05/2022, 06/18/2019, 06/17/2019, Additional history exists Depression Screening 12/21/2025 12/21/2024 Colonoscopy 09/03/2032 09/03/2022, 08/07, 06/18/2022 Colorectal Cancer Screening 09/03/2032 Hepatitis B Vaccines Completed 08/28/2024, 06/05/2024, 04/10/2024, Additional history exists HIB Vaccines Aged Out No longer eligi ble based on patient's age to complete this topic HPV Vaccines Aged Out No longer eligi ble based on patient's age to complete this topic IPV Vaccines Aged Out No longer eligi ble based on patient's age to complete this topic Meningococcal B Vaccine Aged Out No l onger eligible based on patient's age to complete this topic Meningococcal Vaccine Aged Out No cullen mamadou eligible based on patient's age to complete this topic Rotavirus Vaccines Aged Out No longer eligible based on patient's age to complete this topic Procedures Procedure Name Priority Date/Time Associated Diagnosis Comments MR LUMBAR SPINE WO CONTRAST Routine 12/12/2024 9:36 AM EDT Neuropathic pain Preop examination POCT DRUG SCREEN Routine 11/23/2024 12:4 8 PM EDT HEMOGLOBIN A1C Routine 07/11/2024 11:22 AM EST End stage renal disease ([facility]/HCC) Hypertension, essential Pre-transplant evaluation for kidney transplant Type 2 diabetes mellitus with chronic kidney disease on chronic dialysis, unspecified whether computer terminal operator insulin use ([facility]) DIAGNOSTIC COLONOSCOPY Routine 09/03/2022 9:29 AM EST Screen for colon cancer from Last 3 Months or Most Recently Relevant to Health Maintenance Results * MR lumbar spine wo contrast (12/12/2024 9:36 AM EDT) Anatomical Region Laterality Modality Spine, L-spine Magnetic Resonan ce 12/12/2024 10:2 3 AM EDT Impressions 12/12/2024 11:12 AM EDT Degenerative disc disease superimposed on epidural lipomatosis contributing to varying degrees of spinal canal and neural foraminal stenosis. Most pronounced stenosis at L4-L5 (moderate spinal canal and moderate foraminal stenosis). The thecal sac is significantly effaced at L5-S1 level due to epidural lipomatosis. There is a well-circumscribed fat intensity lesion within the para midline left subcutaneous tissues which is only partially included in the [id number]. Correlate with physical exam findings. Consider ultrasound for further evaluation. Electronically signed: Chintan Villanueva MD. Narrative 12/12/2024 11:12 AM EDT MR LUMBAR SPINE WO CONTRAST 12/12/2024 7:57 AM CLINICAL INDICATIONS: Pain Technique: Multiplanar multisequence MRI of the lumbar spine was performed without contrast. COMPARISON: None. FINDINGS: Vertebral body heights are maintained. Mildly heterogenous signal characteristics likely due to fatty infiltration. Vertebral body hemangioma at S1. No suspicious osseous lesions identified. The conus terminates at approximately L1. Cauda equina roots are normal. No extradural fluid collections. Epidural lipomatosis of the lumbar spine extending from L4 caudally.. Desiccation of the intervertebral discs most pronounced at T12-L1 as well as from L2 to S1. Spinal levels: T12-L1: Disc bulge with indentation of the ventral thecal sac. No significant spinal canal or neural foraminal stenosis. L1-L2: No significant spinal canal or neural foraminal stenosis. L2-L3: Minimal disc bulge. No significant spinal canal or neural foraminal stenosis. Minimal facet arthropathy. L3-L4: Circumferential disc bulge. Bilateral facet arthropathy and mild ligamentum flavum thickening. Mild spinal canal stenosis. Minimal foraminal stenosis. L4-L5: Central disc protrusion superimposed on circumferential disc bulge. Bilateral facet arthropathy and ligamentum flavum thickening. Moderate spinal canal stenosis. Moderate right and mild to moderate left neural foraminal stenosis. L5-S1: Disc bulge. Epidural lipomatosis. Effacement of the thecal sac. Mild bilateral foraminal stenosis. Paraspinal soft tissues: Partially visualized likely lipoma within the para midline dorsal soft tissues.. Soft tissues of the abdomen and pelvis: Normal Procedure Note Chintan Villanueva MD - 12/12/2024 MR LUMBAR SPINE WO CONTRAST 12/12/2024 7:57 AM CLINICAL INDICATIONS: Pain Technique: Multiplanar multisequence MRI of the lumbar spine wasperformed without contrast. COMPARISON: None. FINDINGS: Vertebral body heights are maintained. Mildly heterogenoussignal characteristics likely due to fatty infiltration. Vertebral bodyhemangioma at S1. No suspicious osseous lesions identified. The conus terminates at approximately L1. Cauda equina roots are normal.No extradural fluid collections. Epidural lipomatosis of the lumbar spineextending from L4 caudally.. Desiccation of the intervertebral discs most pronouncedat T12-L1 as well as from L2 to S1. Spinal levels: T12-L1: Disc bulge with indentation of the ventral thecal sac. Nosignificant spinal canal or neural foraminal stenosis. L1-L2: No significant spinal canal or neural foraminal stenosis. L2-L3: Minimal disc bulge. No significant spinal canal or neuralforaminal stenosis. Minimal facet arthropathy. L3-L4: Circumferential disc bulge. Bilateral facet arthropathy and mild ligamentum flavum thickening. Mild spinal canal stenosis. Minimalforaminal stenosis. L4-L5: Central disc protrusion superimposed on circumferential discbulge. Bilateral facet arthropathy and ligamentum flavum thickening. Moderatespinal canal stenosis. Moderate right and mild to moderate left neuralforaminal stenosis. L5-S1: Disc bulge. Epidural lipomatosis. Effacement of the thecal sac.Mild bilateral foraminal stenosis. Paraspinal soft tissues: Partially visualized likely lipoma within thepara midline dorsal soft tissues.. Soft tissues of the abdomen and pelvis: Normal IMPRESSION: Degenerative disc disease superimposed on epidural lipomatosiscontributing to varying degrees of spinal canal and neural foraminal stenosis. Mostpronounced stenosis at L4-L5 (moderate spinal canal and moderate foraminalstenosis). The thecal sac is significantly effaced at L5-S1 level due to epidural lipomatosis. There is a well-circumscribed fat intensity lesion within the para midlineleft subcutaneous tissues which is only partially included in [id number]. Correlate with physical exam findings. Consider ultrasound for further evaluation. Electronically signed: Chintan Villanueva MD. Ted Cooley MD IMG MRI PROCEDURES * POCT Drug Screen (11/23/2024 12:48 PM EDT) Ted Cooley MD POINT OF CARE TEST ENTER/EDIT ORDERABLES * (ABNORMAL) Hemoglobin A1c (07/11/2024 11:22 AM EST) Hemoglobin A1C 7.4(H) 4.0 - 6.0 % 07/12/2024 8:04 AM EST [facility] Estimated Average Glucose 166 mg/dL 07/12/2024 8:04 AM EST [facility] Blood Venous blood specimen / Unknown Venipuncture / Unknown 07/11/2024 11:22 AM EST 07/11/2024 11:48 AM EST Brian Cabrera MD LAB BLOOD ORDERABLES [facility] [address] [place] [address] * Colonoscopy (09/03/2022 9:29 AM EST) Anatomical Region Laterality Modality Endoscopy Narrative 09/03/2022 9:32 AM EST Table formatting from the original result was not included. Impression Overall Impression: 3 polyps ranging from 1.5 cm to 6mm in size Poor prep Recommendation Repeat in 1 year Indication Screen for colon cancer Staff Staff Role Jesse Childs, RN Endo Nurse Tara Jack, JACOB Endo Nurse Medications No administrations occurring from 0830 to 0927 on 09/03/22 Preprocedure A history and physical has been performed, and patient medication allergies have been reviewed. The patient's tolerance of previous anesthesia has been reviewed. The risks and benefits of the procedure and the sedation options and risks were discussed with the patient. All questions were answered and informed consent obtained. Details of the Procedure IV sedation was given in divided doses throughout the procedure. After adequate sedation was achieved the patient was placed in the L Lateral decubitus position and a rectal exam was completed. Rectal exam was unremarkable. A colonoscope was then covered in surgical lubricant and passed to the cecum with considerable difficulty requiring external pressure with identification of the appendiceal orifice and IC valve. The ascending colon was observed the twice in the retrograde view with identification of a 1-1/2 cm semisessile polyp which was resected with cold snare polypectomy. Due to post polypectomy bleeding a Hemoclip was placed with hemostasis. The transverse colon was also remarkable for a 1 cm semisessile polyp which was resected with hot snare polypectomy. An additional 6 mm polyp was appreciated in the transverse colon which was resected with cold snare polypectomy. The descending colon was unremarkable. Retroflexed views of the rectum showed no hemorrhoids. The patient tolerated the procedure well without immediate complication. Morton bowel prep score; right colon 1, transverse colon 1, left colon 2, total 4 = inadequate prep. Events Procedure Events Event Event Time ENDO SCOPE IN TIME 09/03/2022 8:36 AM ENDO CECUM REACHED 09/03/2022 8:48 AM ENDO SCOPE OUT TIME 09/03/2022 9:26 AM Findings 3 polyps status post polypectomy ranging from 6mm to 1-1/2 cm Poor prep Specimens ID Type Source Tests Collected by Time A : Ascending Polyp r/o adenoma Tissue Right/Ascending Colon HISTOLOGY - TISSUE EXAM Jonel Moore MD 09/03/2022 0853 B : Transverse Polyp r/o adenoma Tissue Transverse Colon HISTOLOGY - TISSUE EXAM Jonel Moore MD 09/03/2022 0906 Jonel Moore MD ENDOSCOPY PROCEDURE ORDERABLES from Last 3 Months or Most Recently Relevant to Health Maintenance Advance Directives * Full Code (Latest Code Status on File) Date Activated Date Inactivated Comments 08/22/2024 2:50 PM 08/22/2024 8:11 PM Care Teams It Operations Manager Relationship Specialty Start Date End Date Idania Gaston DO [address] [facility] [address] [place] [address] PCP - General 04/29/22 Ignacio Clay MD [address] [place] [address] Dr [address] [place] [address] Consulting Physician Transplant Surgery 05/02/22 Adams Tate, STORE CASHIER [address] [place] [address] Dr [address] [place] [address] Nurse Practitioner Urology 03/01/23 Delano Bardales MD [address] [place] [address] Consulting Physician Urology 07/06/23 Sivan Keller MD [address] [place] [address] Consulting Physician Hematology and Oncology 08/22/24 Desire Bueno CNP [address] [place] [address] Nurse Practitioner Hematology and Oncology 12/21/24
--- OUTSIDE RECORDS SUMMARY | 2025-02-07 19:19 | XMS_ITS | Encounter Summary ---
Author Organization [facility] Address [address] [place] [address] Care Team Providers Care Burr Grinder Name Role Phone Idania Gaston DO Unavailable [phone] Petznaston, Idania Mcfarlane DO Primary Care Provider Petznaston, Idania Mcfarlane DO Unavailable [phone] Petznick, Idania Mcfarlane DO Primary Care Provider Petznick, Idania Mcfarlane DO Unavailable Encounter Details Date Type Department Care Team (Late st Contact Info) Description 03/03/2023 Abstract [facility] [address] [facility] 230 [place] [address] Idania Gaston DO [address] [facility] [address] [place] [address] Social History Tobacco Use Types Packs/Day Years Used Date Smoking Tobacco: Never Smokeless Tobacco: Never Alcohol Use Standard Drinks/Week Comments Not Currently 0 (1 standard drink = 0.6 oz pur e alcohol) Sex and Gender Information Value Date Recorded Sex Assigned at Not on file Legal Sex Male 7:11 PM EDT Gender Identity Not on file Sexual Orientation Not on file documented as of this encounter Plan of Treatment Not on file documented as of this encounter Visit Diagnoses Not on filedocumented in this encounter Care Teams Burr Grinder Relationship Specialty Start Date End Date Idania Gaston DO [address] [facility] [address] [place] [address] PCP - [facility] 09/09/22 07/06/23 Idania Gaston, DO [address] [place] [address] PCP - General Family Medicine 03/02/23 09/19/23 Idania Gaston, DO [address] [place] [address] PCP - [facility] [employer] [facility] 02/04/23 11/13/23 Idania Gaston, DO [address] [place] [address] PCP - [facility] 09/20/23 Idania Gaston, DO [address] [place] [address] PCP - [facility] 09/06/23 09/05/24 documented as of this encounter
--- OUTSIDE RECORDS SUMMARY | 2025-02-07 19:19 | XMS_ITS | Encounter Summary ---
Author Organization [facility] Address [address] [place] [address] Care Team Providers Care Cathode Maker Name Role Phone Idania Gaston DO Primary Care Provider [phone] Idania Gaston DO Unavailable [phone] Reason for Visit * Reason Comments Med Refill Encounter Details Date Type Department Care Team (Late st Contact Info) Description 05/02/2024 Refill [facility] [address] [facility] [address] [place] [address] Idania Gaston, [address] [facility] 230 [place] [address] Type 2 diabetes mellitus with peripheral neuropathy ([facility]/HCC) Social History Tobacco Use Types Packs/Day Years [...] encounter Miscellaneous Notes * Telephone Encounter - Idania Gaston DO - 05/02/2024 12:08 PM EDT Looks like pt just got a 90 day supply (10 pills less than a 90 day) at the end of February. He should be good until the end of May.... He got this through Dr Mondragon (podiatry) documented in this encounter Plan of Treatment Not on file documented as of this encounter Visit Diagnoses Diagnosis Type 2 diabetes mellitus with peripheral neuropathy (CMS/HCC) documented in this encounter Care Teams Cathode Maker Relationship Specialty Start Date End Date Idania Gaston DO [address] [place] [address] PCP - General Family Medicine 09/20/23 Idania Gaston DO [address] [place] [address] PCP - [facility] 09/06/23 09/05/24 documented as of this encounter
--- OUTSIDE RECORDS SUMMARY | 2025-02-07 19:19 | XMS_ITS | Encounter Summary ---
Author Organization [facility] Address [address] [place] [address] Care Team Providers Care Gang Hemstitching Machine Operator Name Role Phone Idania Gaston DO Primary Care Provider [phone] Ignacio Clay MD Unavailable [phone] Adams Tate COAL LOADER Unavailable [phone] Delano Bardales MD Unavailable Sivan Keller MD Unavailable [phone] Desire Bueno COAL LOADER Unavailable [phone] Encounter Details Date Type Department Care Team (Late st Contact Info) Description 12/26/2024 Telephone [facility] Medical [facility] Pain Medicine [address] [place] [address] Albania Hernández LPN Social History Tobacco Use Types Packs/Day Years Used Date Smoking Tobacco: Never Smokeless Tobacco: Current Chew Last attempted to quit: 07/2022 Comments:Check status Alcohol Use Standard Drinks/Week Comments Not Currently 0 (1 standard drink = 0.6 oz pure alcohol) Previous occasional use - rare / once per year [facility] Utilities Answer Date Recorded In the past 12 months has [employer], gas, oil, or water [employer] threatened to shut off services in your [...] any time in the past 12 m [facility], were you homeless or living in a intermediate (including now)? No 09/12/2024 Hunger Vital Sign [...] Don't know 11/23/2024 1: 08 PM EDT documented as of this encounter Miscellaneous Notes * Telephone Encounter - GIANFRANCO ALCAZAR - 12/28/2024 10:29 AM EDT Patients Nucynta was denied by Medicare. Patient calling to see what the next step is. documented in this encounter Plan of Treatment Not on file documented as of this encounter Visit Diagnoses Not on filedocumented in this encounter Care Teams Gang Hemstitching Machine Operator Relationship Specialty Start Date End Date Idania Gaston DO [address] [facility] [address] [place], [place] [id number] PCP - General 04/29/22 Ignacio Clay MD [facility] [place] [address] Consulting Physician Transplant Surgery 05/02/22 Adams Tate CNP [address] [place] [address] Dr [address] [place] [address] Nurse Practitioner Urology 03/01/23 Delano Bardales MD [address] [place] [address] Consulting Physician Urology 07/06/23 Sivan Keller MD [address] [facility] [place] [address] Consulting Physician Hematology and Oncology 08/22/24 Desire Bueno CNP [address] [place] [address] Nurse Practitioner Hematology and Oncology 12/21/24 documented as of this encounter
--- OUTSIDE RECORDS SUMMARY | 2025-02-07 19:19 | XMS_ITS | Encounter Summary ---
Author Organization [facility] Address [address] [place] [address] Care Team Providers Care Fisher Gill Net Name Role Phone Idania Gaston DO Unavailable [phone] Petznaston, Idania Mcfarlane DO Primary Care Provider Petznaston, Idania Mcfarlane DO Unavailable [phone] Petznick, Idania Mcfarlane DO Primary Care Provider Petznick, Idania Mcfarlane DO Unavailable [phone] Encounter Details Date Type Department Care Team (Late st Contact Info) Description 04/14/2023 Abstract [facility] [address] [facility] 230 [place] [address] Idania Gaston DO [address] [facility] 230 [place] [address] Social History Tobacco Use Types Packs/Day Years [...] on filedocumented in this encounter Care Teams Fisher Gill Net Relationship Specialty Start Date End Date Idania Gaston DO [address] [facility] [address] [place] [address] PCP - [facility] 09/09/22 07/06/23 Idania Gaston, DO [address] [place] [address] PCP - General Family Medicine 03/02/23 09/19/23 Idania Gaston, DO [address] [place] [address] PCP - Medical [employer] 02/04/23 11/13/23 Idania Gaston, DO [address] [place] [address] PCP - [facility] 09/20/23 Idania Gaston, DO [address] [place] [address] PCP - [facility] 09/06/23 09/05/24 documented as of this encounter
--- OUTSIDE RECORDS SUMMARY | 2025-02-07 19:19 | XMS_ITS | Clinical Summary ---
Author Organization [facility] Address [address] [facility] [place] [address] Phone Care Team Providers Care Medicare Compliance Auditor Name Role Phone Unavailable Primary Care Provider Unavailabl e Social History Tobacco Use Types Packs/Day Years Used Date Smoking Tobacco: Never Assessed Sex and Gender Information Value Date Recorded Sex Assigned at Not on file Legal Sex Male 1:44 AM EST Gender Identity Not on file Sexual Orientation Not on file Plan of Treatment Not on file
--- OUTSIDE RECORDS SUMMARY | 2025-02-07 19:19 | XMS_ITS | Referral Summary ---
Author Organization [facility] Address [address] [place] [address] Care Team Providers Care Bicycle Mechanic Name Role Phone Idania Gaston DO Primary Care Provider [phone] Ignacio Clay MD Unavailable Adams Tate ELECTRICIAN APPRENTICE Unavailable Delano Bardales MD Unavailable Sivan Keller MD Unavailable [phone] Desire Bueno ELECTRICIAN APPRENTICE Unavailable Encounters Date Type Department Care Team Description 01/22/2025 Refill [facility] Urology [address] [facility] [address] [place] [address] Adams Tate, WILIAN Hypogonadism male 01/15/2025 Telephone [facility] Medical [facility] Pain Medicine [address] [place] [address] [place] [address] Albania Hernández LPN 01/02/2025 Orders Only [facility] Medical [facility] Pain Medicine [address] [place] [address] [place] [address] Valerie Toribio CNP 01/02/2025 Telephone [facility] Pain Medicine [address] [place] [address] [place] [address] Dian Ramos, JACOB 12/27/2024 Travel 12/27/2024 2:10 AM EDT - 12/27/2024 2:45 AM EDT Emergency [facility] Emergency [address] [place] [address] Tanvir Chakraborty MD Chronic bilateral low back pain without sciatica (Primary Dx); Neuropathy Discharge Disposition: Home or Self Care () 12/26/2024 Telephone [facility] Medicine [address] [place] [address] [place] [address] Albania Hernández LPN 12/22/[address] [place] [address] Albania Hernández LPN 12/21/2024 Orders Only [address] [place] [address] Ted Cooley MD 12/21/2024 10:30 AM EDT Office Visit [facility] [address] [place] [address] Desire Bueno CNP Lymphadenopathy (Primary Dx); Nonspecific abnormal findings on diagnostic imaging 12/21/2024 1:00 PM EDT Follow-Up [address] [place] [address] Ted Cooley MD Intervertebral disc disorders with radiculopathy, lumbar region (Primary Dx); Neuropathic pain; Diabetic neuropathy with neurologic complication (CMS/HCC) 12/15/2024 Telephone [facility] Transplant [address] [place] [address] Melinda Hidalgo RN 12/14/2024 Telephone [facility] [address] [place] [address] Anna Enciso MA 12/12/2024 Telephone [facility] Medicine [address] [place] [address] [place] [address] Preet Bueno MA MRI 12/12/2024 7:19 AM EDT - 12/12/2024 11:59 PM EDT Hospital Encounter [facility] MR Imaging [address] [place] [address] [place] [address] Neuropathic pain; Preop examination Discharge Disposition: Home or Self Care () 12/05/2024 Telephone [facility] Pain Medicine [address] [place] [address] [place] [address] Albania Hernández LPN 12/04/2024 Telephone [facility] Pain Medicine [address] [place] [address] [place] [address] Albania Hernández LPN 11/23/2024 1:30 PM EDT Office Visit [address] [place] [address] Ted Cooley MD Chronic painful diabetic neuropathy (CMS/HCC) (Primary Dx); Diabetic neuropathy with neurologic complication (CMS/HCC); Neuropathic pain; Preop examination; PVD (peripheral vascular disease); Peripheral artery disease 11/14/2024 Telephone [facility] Wound Care [address] [place] [address] Ryland Smith MA 11/07/2024 Telephone [facility] Infectious Disease [address] [place] [address] [phone] Albania Mar MA 11/07/2024 11:30 AM EST Telemedicine [facility] Infectious Disease [address] [place] [address] Leslie Morel MD Diabetic ulcer of heel associated with diabetes mellitus due to underlying condition, limited to breakdown of skin, unspecified laterality (CMS/HCC) (Primary Dx) from Last 3 Months Allergies Active Allergy Reactions Criticality Noted Date Comments Adhesive Rash Low 05/02/2022 Adhesive Tape-Silicones Rash Medium 06/18/2022 Haloperidol Anxiety Low 09/25/2023 Latex Rash Medium 06/18/2022 If on for long periods of time [place] Oil GI intolerance Low 06/16/2018 Runny nose, [...] morning. Active ergocalciferol (Vitamin D-2) 1.25 MG (90950 Units) capsule in the morning. Active gabapentin [...] to your scheduled MRI. Please have a canal driver (do not drive) 1 tablet 12/15/2024 [...] diabetes mellitus 09/28/2017 04/27/2023 Hypertension, essential 05/03/2017 supervisor intermediates current use of insulin 05/03/2017 Morbid obesity 05/03/2017 Disorder of adrenal gland 02/25/2017 Acquired hypothyroidism 06/11/2015 Glaucoma 06/11/2015 Microalbuminuria 06/11/2015 Polyneuropathy due to type 2 diabetes mellitus 1 Pure hypercholesterolemia 06/11/2015 Immunizations Name Administration Dates Next Due Influenza, High Dose Seasonal, Preservative Free 06/17/2019 Influenza, injectable, quadrivalent, preservativ e free 11/05/2022,06/18/2019 Influenza, seasonal,quadrivalent, preservative f ree 06/29/2014,06/26/2013 Billie Sars-Cov-2 Vaccination 08/11/2021,2020 Zoster, Recombinant 11/13/2022 Social History Tobacco Use Types Packs/Day Years Used Date Smoking Tobacco: Never Smokeless Tobacco: Current Chew Last attempted to quit: 07/2022 Tobacco Cessation:Ready to Q uit: Not Asked; Counseling Given: Not Answered Comments:Check status Alcohol Use Standard Drinks/Week Comments Not Currently 0 (1 standard drink = 0.6 oz pure alcohol) Previous occasional use - rare / once per year [facility] Utilities Answer Date Recorded In the past 12 months has th e [employer], gas, oil, or water [employer] threatened to shut off services in your [...] any time in the past 12 m [facility], were you homeless or living in a snf (including now)? No 09/12/2024 Hunger Vital Sign [...] 12/27/2024 2:01 AM EDT Plan of Treatment Not on file Procedures Procedure Name Priority Date/Time Associated Diagnosis Comments MR LUMBAR SPINE WO CONTRAST Routine 12/12/2024 9:36 AM EDT Neuropathic pain Preop examination POCT DRUG SCREEN Routine 11/23/2024 12:4 8 PM EDT HEMOGLOBIN A1C Routine 07/11/2024 11:22 AM EST End stage renal disease ([facility]) Hypertension, essential Pre-transplant evaluation for kidney transplant Type 2 diabetes mellitus with chronic kidney disease on chronic dialysis, unspecified whether watermelon harvesting supervisor insulin use ([facility]) DIAGNOSTIC COLONOSCOPY Routine 09/03/2022 9:29 [...] which is only partially included in the [id number]. Correlate with physical exam findings. Consider ultrasound [...] tissues which is only partially included in [id number]. Correlate with physical exam findings. Consider ultrasound for further evaluation. Electronically signed: Chintan Villanueva MD. Ted Cooley MD IMG MRI PROCEDURES * POCT Drug Screen (11/23/2024 12:48 PM EDT) Ted Cooley MD POINT OF CARE TEST ENTER/EDIT ORDERABLES * (ABNORMAL) Hemoglobin A1c (07/11/2024 11:22 AM EST) Hemoglobin A1C 7.4(H) 4.0 - 6.0 % 07/12/2024 8:04 AM EST [facility] Estimated Average Glucose 166 mg/dL 07/12/2024 8:04 AM EST [facility] ([facility]) Blood Venous blood specimen / Unknown Venipuncture / Unknown 07/11/2024 11:22 AM EST 07/11/2024 11:48 AM EST Brian Cabrera MD LAB BLOOD ORDERABLES Performing Organization Address City/State/[facility] Co de Phone Number [facility] [address] [place] [address] * Colonoscopy (09/03/2022 9:29 AM EST) Anatomical Region Laterality Modality Endoscopy Narrative 09/03/2022 9:32 AM EST Table formatting from the original result was not included. Impression Overall Impression: 3 polyps ranging from 1.5 cm to 6mm in size Poor prep Recommendation Repeat in 1 year Indication Screen for colon cancer Staff Staff Role Jesse Childs, JACOB Endo Nurse Tara Jack RN Endo Nurse Medications No administrations occurring from [...] tolerated the procedure well without immediate complication. Gardiner bowel prep score; right colon 1, transverse [...] 2:50 PM 08/22/2024 8:11 PM Care Teams Bicycle Mechanic Relationship Specialty Start Date End Date Idania Gaston DO [address] [facility] [address] [place] [address] PCP - General 04/29/22 Ignacio Clay MD [address] [place] [address] [address] [place] [phone] Consulting Physician Transplant Surgery 05/02/22 Adams Tate CNP [address] [place] [address] [address] [place] [address] Nurse Practitioner Urology 03/01/23 Delano Bardales MD [address] [place] [address] [place] [address] Consulting Physician Urology 07/06/23 Sivan Keller MD [address] [facility] [place] [address] Consulting Physician Hematology and Oncology 08/22/24 Desire Bueno CNP [address] [place] [phone] Nurse Practitioner Hematology and Oncology 12/21/24
--- OUTSIDE RECORDS SUMMARY | 2025-02-07 19:19 | XMS_ITS | Patient Health Record ---
Author Organization [facility] vices Address [address] [place] [id number] Support Name Relationship Address Phone Alexeynathaniel Tressa Emergency Contact [address] [place] [address] [employer] Guarantor Unknown [phone] Reason For Referral No Information Social History Sex Assigned At : Social History Observation Description Sex Assigned At Male Plan Of Treatment No Information Insurance Providers Payer Name Payer Address Payer Phone Subscriber Number Group Number Insured Name Patient Relationship to Insured Coverage Start Date Coverage End Date [employer] [address] [place] [address] [id number] [employer] Self - patient is the insured Medicaid [address] [place] [address] [id number] [employer] Self - patient is the insured
--- OUTSIDE RECORDS SUMMARY | 2025-02-07 19:19 | XMS_ITS | Patient Health Record ---
Author Organization [facility] [place] Address [address] [place] [address] Care Team Providers Care Data Lead Name Role Phone Herojacy Idania CALABRESE Primary Care Provider Unava ilable Allergies Allergen (clinical drug ingredient) Drug/Non Drug Allergy documented on EMR Reaction Allergy Type Onset Date Status Latex Latex Unknown Allergy Active vancomycin Vancomycin Unknown Drug Allergy Activ e Results Component Value Reference Range Notes BUN Reviewed date:01/01/2025 10:05:13 AM Interpretation: Performing Lab:[facility] ([facility]), [address] [place], [place] [address]E., [address] [place] [address]. [address] PH:[phone] Notes/Report: BLOOD UREA NITROGEN 112 5-23 mg/dL PERFORME D AT [address] [place] [address] BUN Reviewed date:01/01/2025 10:04:21 AM Interpretation: Performing Lab:[facility] ([facility]), [address] [place] [address] AVE[address] [place] [address]. [address] PH:[phone] Notes/Report: BLOOD UREA NITROGEN 58 5-23 mg/dL PERFORME D AT [address] [address] Reason For Referral No Information Medications Medication SIG (Take, Route, Frequency, Duration) Notes Start Date End Date Status Lipitor Active Lyrica Not-Taking Anastrozole Active NIFEdipine Active Carvedilol Active Synthroid Active Fenofibrate Active Testosterone Active Gentamicin Sulfate A ctive Vitamin A Active HumaLOG Active Vitamin B Complex Ac tive HumuLIN N Active Vitamin C Active HumuLIN R U-500 KwikPen Active Vitamin D Active hydrALAZINE HCl Acti ve Zinc Active Lasix Active Social History Tobacco Use: Social History Observation Description Date Details (start date - stop date) Never Smoker NA - NA Tobacco Use/Smoking Question Answer Notes Patient is a nonsmoker Problems Problem Type SNOMED Code ICD Code Onset Dates Problem Status W/U Status Risk Notes Problem 094850074 Type 2 diabetes mellitus with diabetic polyneuropathy (E11.42) Active confirmed Problem 39994735162974741 Type 2 diabete s mellitus with foot ulcer (E11.621) Active confirmed Problem 54170437597792240 Non-pressure chronic ulcer of other part of right foot with fat layer exposed (L97.512) Active confirmed Problem 650687025 Charcot's joint, unspecified site (M14.60) Active confirmed Problem 629496188 Charcot's joint, unspecified ankle and foot (M14.679) Active confirmed Problem 32486635 End stage renal disease (N18.6) Active confirmed Plan Of Treatment No Information Insurance Providers Payer Name Payer Address Payer Phone Subscriber Number Group Number Insured Name Patient Relationship to Insured Coverage Start Date Coverage End Date [facility] [place] [facility] PRIMARY MEDICARE [address] [place] [address] [id number] Mnia Savage Self - patient is the insured 4 MEDICAID [place] 2ND INS [address] [place], [place] [id number] Mina Forte Self - patient is the insured 8 Medical (General) History Medical History History ICD Code diabetes mellitus Surgical History Surgery Date(Month/Year) 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
--- OUTSIDE RECORDS SUMMARY | 2025-02-07 19:19 | XMS_ITS ---
Author Organization [facility] Address [address] [place] [address] Care Team Providers Care Marketing Director Assisted Living Name Role Phone Idania Gaston DO Primary Care Provider [phone] Ignacio Clay MD Unavailable [phone] [place] TANNER Unavailable [phone] Delano Bardales MD Unavailable Sivan Keller MD Unavailable [phone] [place]ROME TANNER Unavailable [phone] Transplant Episode Kidney Candidate [facility] ([place], [place]) - [facility] Evaluation began on 10/12/2019 Marked as Active on 04/07/2022 Kidney CoordinatorMelinda Hidalgo RN Phone: N/A Fax: N/A Email: N/A Scores Score Value Updated Exceptions/Reas ons CPRA Not available EPTS (Calc) 65 02/07/2025 Infection History Noted Survival Infection Treatment Organism Resolved 06/14/2024 COVID-19 03/02/2023 Osteomyelitis of left foot ([facility]/HCC) 07/28/2019 Osteomyelitis ([facility]) Care Team Name Role Phone Fax Email Melinda Hidalgo, JACOB Kidney Coordinator N/A N/A N/A Ada Uriostegui MD Referring Physician N/A N/A N/A Melinda Avendano Txp Rotary Planer Set Up Operator N/A N/A N/A Delano Bardales MD Surgeon N/A N/A N/A Gisele Wharton Txp Rotary Planer Set Up Operator N/A N/A N/A Sandy Morris MD Heel Attacher N/A N/A N/A Events Pre-Transplant Referred: 06/29/2019 Evaluation began: 10/12/2019 Committee: 03/22/2023 Dialysis History Dialysis History Start End Type Comments Center 03/06/2023 Hemo [facility] 11/23/2022 03/06/2023 Peritoneal [facility] Dialysis Center Information Center Phone Fax Address [facility] [phone] [address] [place] [address] [facility] [phone] [address] [facility] [address], [address] [facility] [address]
--- OUTSIDE RECORDS SUMMARY | 2025-02-07 19:19 | XMS_ITS | Clinical Summary ---
Author Organization [facility] Address [address] [place] [address] Care Team Providers Care Plant Changer Name Role Phone Unavailable Primary Care Provider Unavailabl e Allergies Active Allergy Reactions Criticality Noted Date Comments Latex Medium 02/02/2025 Vancomycin Medium 02/02/2025 Medications methocarbamol (ROBAXIN) 500 MG tablet Take 1 tablet by mouth 3 times daily as needed (back spasms) Active dexAMETHasone (DECADRON) 1 MG tablet Take 1 tablet by mouth daily as needed (as needed) Active ergocalciferol (ERGOCALCIFEROL) 1.25 MG (48826 UT) capsule Take 1 capsule by mouth daily Active insulin lispro protamine & lispro (HUMALOG MIX) (75-25) 100 UNIT per ML SUSP injection vial Inject 10 Units into the skin 2 times daily (with meals) Active sodium zirconium cyclosilicate (LOKELMA) 10 g PACK oral suspension Take 1 packet by mouth as needed Active traZODone (DESYREL) 50 MG tablet Take 1 tablet by mouth nightly as needed for Sleep Active bumetanide (BUMEX) 1 MG tablet Take 2 tablets by mouth daily Active escitalopram (LEXAPRO) 10 MG tablet Take 1 tablet by mouth daily Active midodrine (PROAMATINE) 2.5 MG tablet Take 4 tablets by mouth daily as needed (As needed during dialysis days) Active Tenapanor HCl, CKD, (XPHOZAH) 30 MG TABS Take 30 mg by mouth 2 times daily Active aspirin 81 MG EC tablet Take 1 tablet by mouth daily Active insulin glargine (LANTUS) 100 UNIT/ML injection vial Inject 60 Units into the skin every morning (before breakfast) Active calcitRIOL (ROCALTROL) 0.25 MCG capsule Take 1 capsule by mouth daily Active Calcium Acetate, Phos Binder, (PHOSLO PO) Take 667 mg by mouth daily Active atorvastatin (LIPITOR) 20 MG tablet Take 1 tablet by mouth daily Active vitamin D (CHOLECALCIFEROL) 125 MCG (5000 UT) CAPS capsule Take 1 capsule by mouth daily Active levothyroxine (SYNTHROID) 100 MCG tablet Take 1 tablet by mouth Daily Active pregabalin (LYRICA) 75 MG capsuleIndication s:Idiopathic peripheral neuropathy Take 1 capsule by mouth daily for 5 doses. Max Daily Amount: 75 mg 5 capsule 5 Active pregabalin (LYRICA) 150 MG capsule Take 1 capsule by mouth 2 times daily. Max Daily Amount: 300 mg 02/03/20 25 Discontin ued(LIST CLEANUP) Active Problems Problem Noted Date Diagnosed Date Idiopathic peripheral neuropathy 02/02/2025 Encounters Date Type Department Care Team Description 02/02/2025 9:08 AM EDT - 02/02/2025 12:17 PM EDT Emergency [facility] Emergency Department [address] [place] [address] Hugo Lyons MD Idiopathic peripheral neuropathy (Primary Dx); End stage renal disease (HCC); Hyperkalemia Discharge Disposition: Home or Self Care 02/02/2025 Travel from Last 3 Months Social History Tobacco Use Types Packs/Day Years [...] Mass Index 38.52 02/02/2025 11:42 AM EDT Plan of Treatment Health Maintenance Due Date Last Done Comments Lipids 1981 Depression Screen 1983 HIV screen 1986 Hepatitis C screen 1989 DTaP/Tdap/Td vaccine (1 - Tdap) 1990 Pneumococcal 50+ years Vaccine (1 of 2 - PCV) 1990 Hepatitis B vaccine (1 of 3 - Risk Dialysis 4-dose series) 1991 Diabetes screen 2006 Colonoscopy 01/11/2016 Colorectal Cancer Screen 01/11/2016 FIT/FOBT: Average risk 01/11/2016 Fecal-DNA (Cologuard): Average risk 01/11/2016 Sigmoidoscopy/CT colonography 01/11/2016 COVID-19 Vaccine ( season) 2024 08/12/2021, 01/23/2021 Annual Wellness Visit (Medicare Advantage) 09/06/2024 Flu vaccine (Season Ended) 04/06/202511/05, 06/18/2019, 06/17/2019, Additional history exists Shingles vaccine Completed 01/18/2023, 11/13/2022 Hepatitis A vaccine Aged Out No longe r eligible based on patient's age to complete this topic Hib vaccine Aged Out No longer eligi ble based on patient's age to complete this topic Meningococcal (ACWY) vaccine Aged Out No longer eligible based on patient's age to complete this topic Meningococcal B vaccine Aged Out No l onger eligible based on patient's age to complete this topic Polio vaccine Aged Out No longer elig ible based on patient's age to complete this topic Procedures Procedure Name Priority Date/Time Associated Diagnosis Comments BASIC METABOLIC PANEL STAT 02/02/2025 10:36 AM EDT CBC WITH AUTO DIFFERENTIAL STAT 02/02/2025 9:47 AM EDT XR FOOT RIGHT (MIN 3 VIEWS) STAT 02/02/2025 9:38 AM EDT from Last 3 Months Results * (ABNORMAL) Basic Metabolic Panel (02/02/2025 10:36 AM EDT) Sodium 137 136 - 145 mmol/L 02/02/2025 10:36 AM [facility] Potassium 6.1(HH) 3.7 - 5.3 mmol/L 02/02/2025 10:36 AM [facility] Comment: Specimen hemolysis has exceeded the interference as defined by Yaima. Value may be falsely increased. Suggest recollection if clinically indicated. Chloride 98 98 - 107 mmol/L 02/02/2025 10:36 AM [facility] CO2 23 20 - 31 mmol/L 02/02/2025 10:36 AM [facility] Anion Gap 16 9 - 16 mmol/L 02/02/2025 10:36 AM [facility] Glucose 296(H) 74 - 99 mg/dL 02/02/2025 10:36 AM [facility] BUN 69(H) 6 - 20 mg/dL 02/02/2025 10:36 AM [facility] Creatinine 7.0(HH) 0.70 - 1.20 mg/dL 02/02/2025 10:36 AM [facility] Est, Glom Filt Rate 9(L) >60 mL/min/1.7 3m2 02/02/2025 10:36 AM [facility] Comment: These results are not intended [...] 10 9 - 20 02/02/2025 10:36 AM EDT [facility] Calcium 9.3 8.6 - 10.4 mg/dL 02/02/2025 10:36 AM [facility] 02/02/2025 10:3 6 AM EDT 02/02/2025 10:46 AM EDT us Hugo Lyons MD CHEMISTRY ORDERABLES Final R esult [facility] [address] [phone] * (ABNORMAL) CBC with Auto Differential (02/02/2025 9:47 AM EDT) WBC 10.4 3.5 - 11.3 k/uL 02/02/2025 9:47 AM [facility] RBC 3.32(L) 4.21 - 5.77 m/uL 02/02/2025 9:47 AM [facility] Hemoglobin 10.4(L) 13.0 - 17.0 g/dL 02/02/2025 9:47 AM [facility] Hematocrit 31.8(L) 40.7 - 50.3 % 02/02/2025 9:47 AM [facility] MCV 95.8 82.6 - 102.9 fL 02/02/2025 9:47 AM [facility] MCH 31.3 25.2 - 33.5 pg 02/02/2025 9:47 AM [facility] MCHC 32.7 28.4 - 34.8 g/dL 02/02/2025 9:47 AM [facility] RDW 14.6(H) 11.8 - 14.4 % 02/02/2025 9:47 AM [facility] Platelets 208 138 - 453 k/uL 02/02/2025 9:47 AM [facility] MPV 10.1 8.1 - 13.5 fL 02/02/2025 9:47 AM [facility] NRBC Automated 0.0 0.0 per 100 WBC 02/02/2025 9:47 AM [facility] Neutrophils % 76(H) 36 - 65 % 02/02/2025 9:47 AM [facility] Lymphocytes % 13(L) 24 - 43 % 02/02/2025 9:47 AM [facility] Monocytes % 7 3 - 12 % 02/02/2025 9:47 AM [facility] Eosinophils % 3 1 - 4 % 02/02/2025 9:47 AM [facility] Basophils % 0 0 - 2 % 02/02/2025 9:47 AM [facility] Immature Granulocytes % 1(H) 0 % 02/02/2025 9:47 AM [facility] Neutrophils Absolute 7.75 1.50 - 8.10 k/uL 02/02/2025 9:47 AM [facility] Lymphocytes Absolute 1.35 1.10 - 3.70 k/uL 02/02/2025 9:47 AM [facility] Monocytes Absolute 0.76 0.10 - 1.20 k/uL 02/02/2025 9:47 AM [facility] Eosinophils Absolute 0.35 0.00 - 0.44 k/uL 02/02/2025 9:47 AM [facility] Basophils Absolute 0.04 0.00 - 0.20 k/uL 02/02/2025 9:47 AM [facility] Immature Granulocytes Absolute 0.13 0.00 - 0.30 k/uL 02/02/2025 9:47 AM [facility] Blood BLOOD SPECIMEN / Unknown 02/02/2025 9:47 AM EDT 02/02/2025 9:57 AM EDT us Hugo Lyons MD HEMATOLOGY ORDERABLES Final Result [facility] [address] [place] [address], [facility] [phone] * XR FOOT RIGHT (MIN 3 VIEWS) [...] IMG DIAGNOSTIC IMAGING ORDER [place] Final Result from Last 3 Months Insurance [employer] DUAL [place]
--- OUTSIDE RECORDS SUMMARY | 2025-02-07 19:19 | XMS_ITS | Encounter Summary ---
Author Organization [facility] Address [address] [facility] [place] [address] Care Team Providers Care Instructional Media Services Technician Name Role Phone Idania Gaston DO Unavailable [phone] Petznick, Idania Mcfarlane DO Primary Care Provider [phone] Petznick, Idania Mcfarlane DO Unavailable [phone] Petznick, Idania Mcfarlane DO Primary Care Provider [phone] Petznick, Idania Mcfarlane DO Unavailable [phone] Encounter Details Date Type Department Care Team (Late st Contact Info) Description 06/22/2023 Telephone [facility] [address] [place] [phone] Jaspreet Jones MD [address] [place] [address] Social History Tobacco Use Types Packs/Day Years [...] encounter Miscellaneous Notes * Telephone Encounter - Jaspreet Jones MD - 06/22/2023 5:38 PM EDT Idania, Just wanted to let you know that this pt cancelled his new pt appt in April, then no-showed today,and for that reason will not be rescheduled. -- Jaspreet documented in this encounter Plan of Treatment Not on file documented as of this encounter Visit Diagnoses Not on filedocumented in this encounter Care Teams Instructional Media Services Technician Relationship Specialty Start Date End Date Idania Gaston, DO [address] [place] [address] PCP - [facility] 09/09/22 07/06/23 Idania Gaston, DO [address] [place] [address] PCP - General Family Medicine 03/02/23 09/19/23 Idania Gaston, DO [address] [place] [address] PCP - [facility] 02/04/23 11/13/23 Idania Gaston, DO [address] [place] [address] PCP - General Family Medicine 09/20/23 Idania Gaston, DO [address] [place] [address] PCP - [facility] 09/06/23 09/05/24 documented as of this encounter
--- OUTSIDE RECORDS SUMMARY | 2025-02-07 19:19 | XMS_ITS | Encounter Summary ---
Author Organization [facility] Address [address] [place] [address] Care Team Providers Care Drum Sander Name Role Phone Idania Gaston DO Primary Care Provider [phone] Ignacio Clay MD Unavailable [phone] ASPHALT SCREED OPERATOR Unavailable [phone] Delano Bardales MD Unavailable Sivan Keller MD Unavailable [phone] ASPHALT SCREED OPERATOR Unavailable [phone] Encounter Details Date Type Department Care Team (Late st Contact Info) Description 01/02/2025 Telephone [facility] [address] [place] [address] Dian Ramos, RN Social History Tobacco Use Types Packs/Day Years Used Date Smoking Tobacco: Never Smokeless Tobacco: Current Chew Last attempted to quit: 07/2022 Comments:Check status Alcohol Use Standard Drinks/Week Comments Not Currently 0 (1 standard drink = 0.6 oz pure alcohol) Previous occasional use - rare / once per year [facility] Utilities Answer Date Recorded In the past 12 months has [employer], gas, oil, or water [employer] threatened to shut off services in your [...] any time in the past 12 m [facility], were you homeless or living in a fpc (including now)? No 09/12/2024 Hunger Vital Sign [...] * Telephone Encounter - GIANFRANCO ALCAZAR - 01/02/2025 12:23 PM EDT Please advise on next step. Medicare will not cover Nucynta for his diagnosis. * Telephone Encounter - Dian Ramos RN - 01/02/2025 9:41 AM EDT Patient asking if he can get some pain meds ordered since his SCS trial today was canceled due to not being approved. Nucynta was not approved by his insurance. Patient aware we will contact him after hearing back from provider. Thanks documented in this encounter Plan of Treatment Not on file documented as of this encounter Visit Diagnoses Not on filedocumented in this encounter Care Teams Drum Sander Relationship Specialty Start Date End Date Idania Gaston DO [address] [facility] [address] [place] [address] PCP - General 04/29/22 Ignacio Clay MD [address] [place] [address] [address] [place] [phone] Consulting Physician Transplant Surgery 05/02/22 [address], ASPHALT SCREED OPERATOR [address] [place] [address] [address] [place] [phone] Nurse Practitioner Urology 03/01/23 Delano Bardales MD [address] [place] [address] [place] [phone] Consulting Physician Urology 07/06/23 Sivan Keller MD [address] [place] [phone] Consulting Physician Hematology and Oncology 08/22/24 Desire Bueno, WILIAN [address] [place] [address] Nurse Practitioner Hematology and Oncology 12/21/24 documented as of this encounter
--- OUTSIDE RECORDS SUMMARY | 2025-02-07 19:20 | XMS_ITS | Encounter Summary ---
Author Organization [facility] Address [address] [place] [address] Care Team Providers Care Stone Circular Sawyer Name Role Phone Unavailable Primary Care Provider Unavailabl e Encounter Details Date Type Department Care Team (Latest Contact Info) Description 02/02/2025 Travel Social History Tobacco Use Types Packs/Day Years [...]
[2025-02-07 19:40] VITALS: BP 182/95; PULSE 72; TEMP 36.8; O2SAT 96; BMI 37.2
--- NOTE | 2025-02-07 19:52 | ED.MEDCLEAR1 ---
HPI - Medical Clearance General Chief complaint: Medical Clearance Stated complaint: lower extremity problem Time Seen by Provider: 02/07/25 19:33 Source: patient Source comment: sister with pt. Pt gets hemodialysis M-W-F at [facility] Mode of arrival: walk-in History of Present Illness HPI Narrative: This 55-year-old male with a history of diabetic neuropathy who is on dialysis presents for evaluation of ongoing pain in his feet. He request a refill of his Lyrica. I explained to him that this is a controlled substance that I cannot refill for him and he request something else for pain. He was seen here recently and given Mars. He denies any chest pain or shortness of breath. He states he has contacted his family physician but she will not fill his medications any longer stating that he has to live with his chronic pain. He does have an appointment with [facility] pain management on February 13. Despite the fact that he is having ongoing neuropathic foot pain and diabetic he refuses to let me evaluate his feet. Related Information Home Medications ?Medication ?Instructions ?Recorded ?Confirmed B complex 11-folic acid 1 mg-C 100 1 tab PO DAILY 08/29/24 02/07/25 mg-biotin 300 mcg-zinc 50 mg tablet (Dialyvite) anastrozole 1 mg tablet 1 mg PO DAILY 08/29/24 02/07/25 aspirin 81 mg chewable tablet 1 tab PO DAILY 08/29/24 02/07/25 atorvastatin 20 mg tablet 20 mg PO DAILY 08/29/24 02/07/25 calcitriol 0.25 mcg capsule 0.25 mcg PO QWEEK 08/29/24 02/07/25 carvedilol 6.25 mg tablet 6.25 mg PO Q12H 08/29/24 02/07/25 escitalopram oxalate 10 mg tablet 10 mg PO DAILY 08/29/24 02/07/25 furosemide 80 mg tablet 80 mg PO Q12H 08/29/24 02/07/25 insulin glargine 100 unit/mL (3 60 unit subcut QAM 08/29/24 02/07/25 mL) subcutaneous pen (Lantus Solostar U-100 Insulin) insulin lispro 100 unit/mL 10 unit subcut .meal 08/29/24 02/07/25 subcutaneous pen (Humalog KwikPen (U-100) Insulin) levothyroxine 100 mcg tablet 100 mcg PO DAILY 08/29/24 02/07/25 pregabalin 150 mg capsule 150 mg PO TID 08/29/24 01/02/25 sevelamer carbonate 800 mg tablet 800 mg PO TID 08/29/24 02/07/25 tenapanor 30 mg tablet (Xphozah) 30 mg PO DAILY 08/29/24 02/07/25 testosterone 1.62 % (20.25 mg/1.25 1 packet topical DAILY 08/29/24 02/07/25 gram) transdermal gel packet trazodone 50 mg tablet 50 mg PO QPM 08/29/24 02/07/25 methocarbamol 500 mg tablet 500 mg PO Q8H PRN back spasms 01/02/25 02/07/25 midodrine 10 mg tablet 10 mg PO .during dialysis PRN low 01/02/25 02/07/25 bp Allergies Allergy/AdvReac Type Severity Reaction Status Date / Time vancomycin AdvReac Severe rash Verified 02/07/25 19:49 adhesive AdvReac Intermediate rash Verified 02/07/25 19:49 latex AdvReac Mild Rash Verified 02/07/25 19:49 sunflower seed AdvReac Mild Congested Verified 02/07/25 19:49 Review of Systems ROS Status of ROS 10 or more systems reviewed and unremarkable except as noted in history and below [facility] Medical History (Updated 02/07/25 @ 20:27 by Valerie Plaza MD) Diabetes ?E11.9 - Type 2 diabetes mellitus without complications (ICD-10) Hypertension ?I10 - Essential (primary) hypertension (ICD-10) Leukemia ?C95.90 - Leukemia, 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 (ICD-10) Surgical History (Updated 08/29/24 @ 04:11 by Ruby James) H/O foot surgery ?Z98.890 - Other specified postprocedural states (ICD-10) H/O right heart catheterization ?Z98.890 - Other specified postprocedural states (ICD-10) Social History Little interest or pleasure in doing things: not at all Feeling down, depressed, or hopeless: not at all Exam Narrative Exam Narrative: Vital signs and Nursing Notes reviewed: Patient is afebrile with a normal pulse, but blood pressure is elevated 182/95, he is not hypoxic with pulse ox of 96% on room air General: Awake, alert, oriented, no acute distress, lying comfortably on the stretcher HEENT: Normocephalic atraumatic, mucous membranes are moist and pink, eyes are clear, normal conjunctiva, vision is grossly intact Chest: Lungs are clear to auscultation with good air entry, there is no wheezing rhonchi or rales appreciated no accessory muscle use, patient is speaking in complete sentences-no chest wall tenderness to palpation CVS: Regular rate and rhythm S1-S2, no murmurs rubs or gallops, pulses are brisk and equal bilaterally Extremities: Moving all extremities-patient refuses to take off his socks or shoes for me to evaluate his neuropathy and/or diabetic feet Skin: Normal in appearance without rash,pallor, petechiae or purpura Neuro: No focal deficits Constitutional Vital Signs, click to edit/add: Last Vital Signs Temp 98.2 F 02/07/25 19:40 Pulse 72 02/07/25 19:40 Resp 72 H 02/07/25 19:40 BP 182/95 H 02/07/25 19:40 Pulse Ox 96 02/07/25 19:40 O2 Del Method Room Air 02/07/25 19:40 Course Vital Signs Vital signs: Vital Signs Temperature 98.2 F 02/07/25 19:40 Pulse Rate 72 02/07/25 19:40 Respiratory Rate 72 H 02/07/25 19:40 Blood Pressure 182/95 H 02/07/25 19:40 Pulse Oximetry 96 02/07/25 19:40 Oxygen Delivery Method Room Air 02/07/25 19:40 Temperature 98.2 F 02/07/25 19:40 Pulse Rate 72 02/07/25 19:40 Respiratory Rate 72 H 02/07/25 19:40 Blood Pressure 182/95 H 02/07/25 19:40 Pulse Oximetry 96 02/07/25 19:40 Oxygen Delivery Method Room Air 02/07/25 19:40 MDM - Medical Clearance MDM Narrative Medical decision making narrative: Patient was given a Mars in the emergency department and 2 Mars to go. He has an appointment with pain management next week. I explained him I cannot refill prescriptions for Lyrica as they are controlled substance additionally he would not let me fully evaluate him for his chief complaint. He is here with a family member who will drive him home. Discharge Plan Discharge Chief Complaint: Medical Clearance Clinical Impression: Diabetic neuropathy, Chronic pain Patient Disposition: Home, Self-Care Time of Disposition Decision: 20:21 Condition: Good Prescriptions / Home Meds: No Action methocarbamol 500 mg tablet 500 mg PO Q8H PRN (Reason: back spasms) midodrine 10 mg tablet 10 mg PO .during dialysis PRN (Reason: low bp) anastrozole 1 mg tablet 1 mg PO DAILY aspirin 81 mg tablet,chewable 1 tab PO DAILY atorvastatin 20 mg tablet 20 mg PO DAILY Dialyvite [id number] [id number]-bv-[id number]-mg tablet 1 tab PO DAILY calcitriol 0.25 mcg capsule 0.25 mcg PO QWEEK carvedilol 6.25 mg tablet 6.25 mg PO Q12H escitalopram oxalate 10 mg tablet 10 mg PO DAILY pregabalin 150 mg capsule 150 mg PO TID furosemide 80 mg tablet 80 mg PO Q12H insulin glargine [Lantus Solostar U-100 Insulin] 100 unit/mL (3 mL) insulin pen 60 unit SUBCUT QAM insulin lispro [Humalog KwikPen Insulin] 100 unit/mL insulin pen 10 unit SUBCUT .meal Patient Comments: unknown ? levothyroxine 100 mcg tablet 100 mcg PO DAILY sevelamer carbonate 800 mg tablet 800 mg PO TID Xphozah 30 mg tablet 30 mg PO DAILY testosterone 1.62 % (20.25 mg/1.25 gram) gel in packet 1 packet topical DAILY trazodone 50 mg tablet 50 mg PO QPM Print Language: [place] Helen[place] Instructions: Foot Care for People with Diabetes (ED), Diabetic Neuropathy (ED) Referrals: ANGEL RICKETTS [Primary Care Provider, Family Practice] - 1 week
[2025-02-07] MEDS: HYDROCODONE/ACET 5-325 MG TABLET 1 TAB PO (20:54)
[2025-02-07] MEDS: HYDROCODONE/ACET 5-325 MG TABLET PO (20:55)
== END 2025-02-07 20:59 | disposition home or self-care (01) ==
PROVIDERS: Emergency Provider Emergency Medicine; PCP Family Medicine
DX: E11.40 Type 2 diabetes mellitus with diabetic neuropathy, unspecified (principal); Z99.2 Dependence on renal dialysis; Z79.4 Long term (current) use of insulin; G89.29 Other chronic pain
CPT/HCPCS: 99283

== ENCOUNTER 2025-03-24 23:46 | Emergency (ER) | payer MEDICARE, MEDICAID, SELFPAY ==
--- OUTSIDE RECORDS SUMMARY | 2025-03-24 23:54 | XMS_ITS | CCD ---
Author Organization [facility] Care Team Providers Care Check Processor Name Role Phone Ada Uriostegui Unavailable YVONNE, BERTIN Admitting Unavailable YVONNE BERTIN Attending Unavailable PETZNICK, IDANIA Primary Care Unavailable PETZNICK, IDANIA Referring Unavailable Petznick, DO Idania Primary Care Provider [phone] MD Ada Uriostegui Attending Provider Marilin, Idania Primary Care Provider MD Ada Uriostegui Attending Provider [phone] Sj Francois Primary Care Physician Sj Garcia Unavailable Unavailable Sj Francois Primary Care Physician Samantha Ricketts, DO Idania Primary Care Provider MD dAa Uriostegui Attending Provider DO Yosef Castillo Emergency Provider [phone] Sj Francois Primary Care Physician Samantha Ricketts, DO Idania Primary Care Provider MD Ada Uriostegui Attending Provider [phone] MD Evans Narayanan Jr Emergency Provider Sj Francois Primary Care Physician Sj Garcia Primary Care Physician Samantha Ricketts, DO Idania Primary Care Provider MD Ada Uriostegui Attending Provider AlessandroSj Britton Attending Unavai lable Petznick, Idania Primary Care Unavailable Petznick, Idania Consulting Unavailable Alessandro Sj MENJIVAR Attending Sj Garcia Primary Care Physician Samantha Ricketts, DO Idania Primary Care Provider [phone] HARSH Hill Emergency Provider Petznick, DO Idania Primary Care Provider MD Ada Uriostegui Attending Provider MD Delano Mondragon Emergency Provider Frings, DO Chintan Admit Provider Frings, DO Chintan Attending Provider [phone] MD Jf Liu Other Provider MD Ada Uriostegui Other Provider MD Zenon Cage Other Provider MD Jamey Mcnamarahash Other Provider MD Yocasta Villalba Other Provider Petlizbethick, Idania Primary Care Provider MD Evans Narayanan Jr Emergency Provider HARSH Hill Emergency Provider MD Ada Uriostegui Attending Provider MD Delano Mondragon Emergency Provider Frings, DO Chintan Admit Provider Oksanangs, DO Chintan Attending Provider MD Jf Liu Other Provider MD Ada Uriostegui Other Provider MD Zenon Cage Other Provider MD Conor Mcnamara Other Provider MD Yocasta Villalba Other Provider DR IDANIA RICKETTS Primary Care Unavailable KEVIN WILKES Admitting Unavailable KEVIN WILKES Attending Unavailable KEVIN WILKES Admitting Unavailable DR IDANIA RICKETTS Primary Care Unavailable KEVIN WILKES Attending Unavailable KEVIN WILKES Admitting Unavailable PETZNICK, DR EMERSON Primary Care Unavailable HIGHLANDER, KEVIN Lewis Attending Unavailable HIGHLANDER, KEVIN Lewis Admitting Unavailable PETZNICK, DR EMERSON Primary Care Unavailable HIGHLANDER, KEVIN Lewis Attending Unavailable PETZNICK, DR EMERSON Primary Care Unavailable MISC, DR MARC Admitting Unavailable MISC, DR MARC Consulting Unavailable MISC, DR MARC Attending Unavailable HIGHLANDER, KEVIN Lewis Attending Unavailable PETZNICK, DR EMERSON Primary Care Unavailable HIGHLANDER, KEVIN Lewis Admitting Unavailable ZIEBER, DR VIRGINIA Betancourt Consulting Unavailable HIGHLANDER, KEVIN Lewis Consulting Unavailable HIGHLANDER, KEVIN Lewis Admitting Unavailable PETZNICK, DR EMERSON Primary Care Unavailable HIGHLANDER, KEVIN Lewis Attending Unavailable HIGHLANDER, KEVIN Lewis Attending Unavailable PETZNICK, DR EMERSON Primary Care Unavailable HIGHLANDER, KEVIN Lewis Admitting Unavailable Alessandro, Sj P Primary Care Physician Samantha Francois, Sj P Primary Care Physician Samantha Kennedy Tondra Unavailable Petlizbethick, DO Emerson Primary Care Provider [phone] HARSH Kennedy Attending Provider DO Chintan Brewster Attending Provider Alessandro, Sj P Primary Care Physician Samantha Francois, Sj P Primary Care Physician Samantha Francois, Sj P Primary Care Physician Samantha Francois, Sj P Primary Care Physician Samantha tate Petjacy, DO Idania Primary Care Provider HARSH Kenneyd Attending Provider [phone] DO Chintan Brewster Attending Provider [facility], DO Donnie Mcfarlane Emergency Provider [facility], Sj Singh Primary Care Physician Rasheeda Kirkland Unavailable Petznick, DO Idania Primary Care Provider [phone] MD Ramirez Jean Attending Provider Petlizbethick, Idania Primary Care Provider [phone] MD Chintan Sweet Emergency Provider MD Augusta Hill Attending Provider Ramirez Jean Unavailable Petznaston DO, Idania M Unavailable Petznick DO, Idania M Unavailable Petznick DO, Idania M Primary Care Provider DO Flakito High Attending Provider Sj Francois Primary Care Physician Samantha Ricketts, Idania Primary Care Provider MD Ramirez Jean Attending Provider MD Chintan Sweet Emergency Provider MD Augusta Hill Attending Provider DO Flakito High Attending Provider DO Flakito High Referring Provider DO Chong Cabrera Emergency Provider DO Buddy Murguia Admit Provider DO Buddy Murguia Attending Provider [phone] MD Yocasta Villalba Other Provider MD Chintan Hernández Other Provider TIARA Vu Other Provider DO Amy Escudero Attending Provider DO Donnie Bell Emergency Provider Marilin, Idania Primary Care Provider MD Ramirez Jean Attending Provider TIARA Mondragon Attending Provider Marilin, Idania Primary Care Provider [phone] Marilin, Idania Primary Care Provider DO Flakito High Attending Provider Marilin, Idania Primary Care Provider [phone] DO Chong Cabrera Emergency Provider [phone] Petznick DO, Idania M Unavailable [phone] PETZNICK, IDANIA M Primary Care Unavailable PETZNICK, IDANIA Attending Unavailable PETZNICK, IDANIA Admitting Unavailable Petznick DO, Idania Primary Care Provider Delano Mondragon MD Emergency Provider Will Cerna PA-C Emergency Provider Lindbloom DO, Maxime Admit Provider Lindbloom DO, Maxime Attending Provider Chintan Hernández MD Other Provider Alexa PALOMARES, Jf Other Provider Wayne MICHEL-C, Marielos Other Provider Unavailable Ada Uriostegui MD Other Provider Yocasta Villalba MD Other Provider Gi Mondragon DPM Other Provider Petznick DO, Idania Primary Care Provider Will Cerna PA-C Emergency Provider [phone] Lindbloom DO, Maxime Admit Provider Lindbloom DO, Maxime Attending Provider Chintan Hernández MD Other Provider Alexa PALOMARES, Jf Other Provider Wayne MICHEL-C, Marielos Other Provider Unavailable Ada Uriostegui MD Other Provider Orly PALOMARES, Yocasta Other Provider Gi Mondragon DPM Other Provider Venkat Burgos DO Emergency Provider PETZNICK, IDANIA M Attending Unavailable PETZNICK, IDANIA M Referring Unavailable GI MONDRAGON Attending Unavailable GI MONDRAGON Attending Unavailable PETZNICK, IDANIA M Referring Unavailable GI MONDRAGON Attending Unavailable MONDRAGON, GI H Attending Unavailable PETZNICK, IDANIA M Attending Unavailable MONDRAGON, GI H Attending Unavailable MONDRAGON, GI H Attending Unavailable MONDRAGON, GI H Attending Unavailable MONDRAGON, GI H Attending Unavailable MONDRAGON, GI H Attending Unavailable MONDRAGON, GI H Attending Unavailable PETZNICK, IDANIA M Attending Unavailable MONDRAGON, GI H Attending Unavailable MONDRAGON, GI H Attending Unavailable MONDRAGON, GI H Attending Unavailable MONDRAGON, GI H Attending Unavailable MONDRAGON, GI H Attending Unavailable PETZNICK, IDANIA M Attending Unavailable MONDRAGON, GI H Attending Unavailable MONDRAGON, GI H Attending Unavailable MONDRAGON, GI H Attending Unavailable PETZNICK, IDANIA M Attending Unavailable PETZNICK, IDANIA M Attending Unavailable PETZNICK, IDANIA M Referring Unavailable MONDRAGON, GI H Attending Unavailable PETZNICK, IDANIA M Attending Unavailable Declan Silverio APRN Emergency Provider PETZNICK, IDANIA M Primary Care Unavailable BASIL DE LOS SANTOS Attending Unavailable ALTMAN, NANCY Referring Unavailable PETZNICK, IDANIA M Primary Care Unavailable ALTMAN, NANCY Referring Unavailable PETZNICK, IDANIA M Primary Care Unavailable PETZNICK, IDANIA M Primary Care Unavailable PETZNICK, IDANIA M Primary Care Unavailable PETZNICK, IDANIA M Primary Care Unavailable MEREDITH KERR Attending Unavailable PETZNICK, IDANIA M Primary Care Unavailable Ivana Salcedo DO Emergency Provider Unavailable Primary Care Provider Unavailabl e PETZNICK, IDANIA Primary Care Physician [phone] PEDRO ALVAREZ Admitting Unavailable PEDRO ALVAREZ Attending Unavailable JOY WATERS Attending Unavailable HEAVENLY BUENO Attending Unavailable YVONNE, BERTIN Referring Unavailable ERICK CARTER Attending Unavailable FAUSTINO MOREL Attending Unavailable PEDRO ALVAREZ Attending Unavailable FAUSTINO MOREL Attending Unavailable MORELFAUSTINO Pathak Attending Unavailable JOY WATERS Attending Unavailable ERICK CARTER Attending Unavailable JENIFERREFUGIO Shirley Attending Unavailable COOLEY, CHONG Referring Unavailable VIJENDRA, SIVAN Referring Unavailable COOLEY, CHONG Referring Unavailable JENIFER, REFUGIO Referring Unavailable JENIFER, REFUGIO Referring Unavailable JENIFER, REFUIGO Referring Unavailable COOLEY, CHONG Attending Unavailable PERNE, JOY Referring Unavailable COOLEY, CHONG Attending Unavailable ADAMS TATE Attending Unavailable BRADLEY HALL Attending Unavailable VIJENDRASIVAN Attending Unavailable YVONNE, BERTIN Referring Unavailable YVONNE, BERTIN Referring Unavailable HENLEY, ANYA Admitting Unavailable HENLEY, ANYA Attending Unavailable HENLEY, ANYA Referring Unavailable MOUKAPEDRO CLEVELAND Referring Unavailable ERICK CARTER Admitting Unavailable RAUL, ERICK Attending Unavailable TANVIR SMITH Attending Unavailable SHERLEY TEMPLETON Attending Unavailable Delano Benavides Attending Unavailable Petznick DO, Idania Primary Care Provider [phone] Loretta DO, Venkat M Emergency Provider Unavailable Petznick DO, Idania Primary Care Provider [phone] Petznick DO, Idania Referring Provider [phone] Jey Ramos MD Attending Provider [phone] Nuria Fermin LPN Attending Provider Unavailable Kiepert Savanah HOUSE Emergency Provider Petznick, Idania Primary Care Unavailable Maxime Magana Admitting Unavaillizbeth e Maxime Magana Attending Unavailabl e Chintan Hernández Consulting Unavailable Elashi, Essmario Consulting Unavailable Marielos Black Consulting Unavailable Moody, Ada Consulting Unavailable Bakhous, Aziz Consulting Unavailable Gi Mondragon Consulting Unavailable Kiepert, Savanah A Admitting Unavailable KiepertSavanah A Attending Unavailable Petznick, Idania Primary Care Unavailable Keister, Chong A Admitting Unavailable KeisterChong A Attending Unavailable Petznick, Idania Primary Care Unavailable Petznick, Idania Primary Care Unavailable Delano Mondragon A Admitting Unavailable Delano Mondragon Attending Unavailable Petznick, Idania Primary Care Unavailable LorettaBiaed M Admitting Unavailable Loretta Venkat M Attending Unavailable Petznick, Idania Primary Care Unavailable Declan Silverio Admitting Unavailable Declan Silverio Attending Unavailable Ivana Salcedo Attending Unavailable Ivana Salcedo Admitting Unavailable Petznick, Idania Primary Care Unavailable Allergies Allergy Classification Reported Allergen(s) Allergy Type Date of Onset Reaction(s) Facility Glycopeptides (antibiotic) (1 source) Vancomycin Drug Allergy 4 [facility] Haloperidol (1 source) Haloperidol Drug Allergy 4 [facility] Latex (1 source) Latex Substance Allergy 4 [facility] (20 sources) Latex; Translations: [latex] Allergy to substance (disorder) 2 [facility] Repository Comment on above: pt states allergy is only if exposed to latex for extended periods. (20 sources) Haloperidol; Translations: [HALOPERIDOL] Drug Allergy 3 [facility] Comment on above: anxious, restless, a gitated (2 sources) Adhesive agent; Translations: [ADHESIVE] Drug allergy (disorder) 2 [facility] Repository (20 sources) Vancomycin; Translations: [[facility]ANCOMYCIN] [facility] (20 sources) Kimble Oil; Translations: [SUNFLOWER OIL] Propensity to adverse reactions 8 GI intolerance [facility] (20 sources) Wound Dressing Adhesive Drug Allergy 2 [facility] (1 source) sunflower seed extract; Translations: [SUNFLOWER SEED] Drug Allergy 8 [facility] Repository (1 source) ADHESIVE TAPE-SILICONES; Translations: [ADHESIVE TAPE-SILICONES] Propensity to adverse reactions to drug (disorder) 2 [facility] Repository (1 source) Vancomycin Drug Allergy 5 [facility] Repository Medications Current Medications Medication Drug Class(es) Dates Sig (Normalized) Sig (Original) acetaminophen 325 mg / oxyCODONE hydrochloride 5 mg oral tablet (6 sources) Opioid Agonist Start: 02-02-2025 End: 02-05-2025 acetaminophen-oxyc odone 325 mg-5 mg Tab 1 tab(s), Oral, q6hr for pain for 3 day(s), 12 tab(s), Refill(s) 0, [id number], 187, cm, 02/02/25 18:12:00 EDT, Height/Length Dosing, 135, kg, 02/02/25 18:12:00 EDT, Weight Dosing Start Date: 02/02/25 Stop Date: 02/05/25 Status: Ordered Quantity: 12.0 Unit: tab(s) Repeat number: 1 Start: 12-29-2024 End: 02-13-2025 take 1 tablet by mouth every eight hours as needed for pain Oxycodone-Acetaminophen (Percocet) 5-325 mg tablet Discontinued 1 TAB PO Every 8 hours as needed for pain 10 December 29, 2024 February 13, 2025 8:41am amitriptyline hydrochloride 10 mg oral tablet (4 sources) Tricyclic Antidepressant Start: 11-23-2024 End: 01-22-2025 take 2 tablets by mouth at bedtime amitriptyline (Elavil) 10 MG tablet Take 20 mg by mouth at bedtime 11/23/2024 Active Start: 11-23-2024 End: 01-22-2025 take 1 tablet by mouth at bedtime amitriptyline (Elavil) 10 MG tablet Take 10 mg by mouth at bedtime 11/23/2024 01/22/2025 Active anastrozole 1 mg oral tablet (20 sources) Aromatase Inhibitor Start: 01-25-2023 take 1 tablet by mouth once daily in the morning Anastrozole 1 mg tablet Active 1 MG PO Every morning September 16, 2023 1:00am Complies with drug therapy aspirin 81 mg chewable tablet (20 sources) Platelet Aggregation Inhibitor, Nonsteroidal Anti-inflammatory Drug Start: 06-22-2024 End: 06-22-2025 aspirin 81 MG chewable tablet Chew 81 mg in the morning. 06/22/2024 06/22/2025 Active Start: 07-15-2018 End: 11-05-2018 take 1 tablet by mouth once daily Aspirin 81 mg tablet,delayed release (DR/EC) Discontinued 81 MG PO Daily July 15, 2018 1:00am November 05, 2018 3:50pm atorvastatin 20 mg oral tablet (20 sources) HMG-CoA Reductase Inhibitor Start: 07-15-2018 take 1 tablet by mouth once daily in the morning Atorvastatin (Lipitor) 20 mg Tablet Active 20 MG PO Every morning July 15, 2018 1:00am Complies with drug therapy b complex-folic acid tablet (20 sources) take 1 tablet by mouth once daily b complex-folic acid tablet Take 1 tablet by mouth Daily Active take 1 tablet by mouth in the mo rning b complex-folic acid tablet Take 1 tablet by mouth in the morning and 1 tablet in the evening. Active take 1 tablet by mouth in the mo rning b complex-folic acid tablet Take 1 tablet by mouth in the morning and 1 tablet in the evening. 0 Active bumetanide 2 mg oral tablet (20 sources) Loop Diuretic Start: 09-19-2024 take 1 tablet by mouth once daily Bumetanide 2 mg tablet Active 2 MG PO Daily October 29, 2024 1:00am Complies with drug therapy take 2 tablets by mouth once jocelyn ly bumetanide (BUMEX) 1 MG tablet Take 2 tablets by mouth daily Active calcitriol 0.78269 mg oral capsule (20 sources) Vitamin D3 Analog Start: 02-12-2023 take 1 capsule by mouth once daily Calcitriol 0.25 mcg capsule Active 0.25 MCG PO Daily September 16, 2023 1:00am Complies with drug therapy take 1 capsule by mouth every tw enty-four hours calcium acetate 667 mg oral capsule (20 sources) Start: 10-06-2023 Calcium Acetat e(Phosphat Bind) 667 mg capsule Active 2668 MG PO before meals October 06, 2023 1:00am Complies with drug therapy Start: 10-06-2023 take 2668 mg by mout h before mealtime Calcium Acetate(Phosphat Bind) Active 2668 MG PO before meals October 06, 2023 1:00am Start: 02-10-2023 End: 08-07-2024 take 2 capsules by mouth three times daily at mealtime calcium acetate (Phoslo) 667 MG capsule take 2 capsules by mouth with meals three times a day then take 1... (REFER TO PRESCRIPTION NOTES). 02/10/2023 08/07/2024 Discontinued take 2 tablets by [facility] every eight hours Calcium Acetate 667 MG 2 tablets with meals Orally Three times a day Active Calcium Acetate, Phos Binder, (PHOSLO PO) (1 source) take 667 mg by mouth once daily Calcium Acetate, Phos Binder, (PHOSLO PO) Take 667 mg by mouth daily Active carvedilol 12.5 mg oral tablet (20 sources) alpha-Adrenergic Nam, beta-Adrenergic Nam Start: 01-25-2024 take 6.25 mg by mouth twice daily Carvedilol 12.5 mg tablet Active 6.25 MG PO Twice daily January 25, 2024 12:00am Complies with drug therapy Start: 01-25-2024 take 12.5 mg by mout h twice daily Carvedilol Active 12.5 MG PO Twice daily January 25, 2024 12:00am Start: 07-29-2022 take 6.25 mg by mout h twice daily Carvedilol Active 6.25 MG PO Twice daily July 29, 2022 1:00am Start: 07-29-2022 take 12.5 mg by mout h twice daily Carvedilol Active 12.5 MG PO Twice daily July 29, 2022 12:00am Start: 07-29-2022 take 25 mg by mouth twice geo y Carvedilol Active 25 MG PO Twice daily July 29, 2022 12:00am Start: 06-17-2019 End: 07-29-2022 take 1 tablet by mouth twice daily Carvedilol (Coreg) 12.5 mg tablet Discontinued 12.5 MG PO Twice daily June 17, 2019 12:00am July 29, 2022 1:56am Start: 07-15-2018 End: 07-15-2018 take 1 tablet by mouth twice daily Carvedilol 6.25 mg tablet Discontinued 6.25 MG PO Twice daily July 15, 2018 1:00am July 15, 2018 12:27pm Continuous Blood Gluc Receiv er (Dexcom G7 Sports Administrator) device (20 sources) Start: 12-21-2022 Continuous Blo od Gluc Sports Administrator (Dexcom G7 Sports Administrator) device 1 (one) time each day at the same time. 12/21/2022 Active Start: 12-21-2022 Continuous Blo od Gluc Sports Administrator (Dexcom G7 Sports Administrator) device 1 (one) time each day at the same time. 0 12/21/2022 Active Continuous Blood Gluc Sensor (Dexcom G7 Sensor) misc (20 sources) Start: 11-16-2022 Continuous Blo od Gluc Sensor (Dexcom G7 Sensor) misc as directed every 10 days for 90 days 11/16/2022 Active Start: 11-16-2022 Continuous Blo od Gluc Sensor (Dexcom G7 Sensor) misc as directed every 10 days for 90 days 0 11/16/2022 Active dexamethasone 1 mg oral tablet (1 source) Corticosteroid take 1 tablet by mouth once daily as needed dexAMETHasone (DECADRON) 1 MG tablet Take 1 tablet by mouth daily as needed (as needed) Active doxycycline hyclate 100 mg oral capsule (20 sources) Tetracycline-class Drug Start: 04-21-20 End: 05-01-20 doxycycline (Vibramycin) 100 MG capsule Indications: Cellulitis of leg, right Take 1 capsule (100 mg) by mouth in the morning and 1 capsule (100 mg) before bedtime. Do all this for 10 days. Take with at least 8 ounces (large glass) of water, do not lie down for 30 minutes after. 20 capsule 04/21/2024 05/01/2024 Active Start: 09-30-2023 End: 10-18-2023 take 1 capsule by mouth every twelve hours Doxycycline Hyclate 100 mg capsule Discontinued 100 MG PO Q12H October 06, 2023 1:00am October 18, 2023 8:43am Start: 07-20-2022 End: 08-03-2022 doxycycline hyclate 100 mg c apsule 07/20/2022 08/03/2022 take 2 PO on day 1, then 1 PO daily for 13 days, total of 14 days ergocalciferol 1.25 mg oral capsule (1 source) Provitamin D2 Compound take 1 capsule by mouth once daily ergocalciferol (ERGOCALCIFEROL) 1.25 MG (47861 UT) capsule Take 1 capsule by mouth daily Active fenofibrate 145 mg oral tablet (20 sources) Peroxisome Proliferator Receptor alpha Agonist Start: End: take 1 tablet by mouth once daily in the morning Fenofibrate Nanocrystallized (Tricor) 145 mg tablet Active 145 MG PO Every morning April 29, 2020 12:00am Complies with drug therapy Start: 11-05-2018 End: 04-29-2020 take 1 capsule by mouth once daily Fenofibrate 150 mg Capsule Discontinued 150 MG PO Daily November 05, 2018 1:00am April 29, 2020 11:12am 0.2 ml glucagon 5 mg/ml auto-injector (20 sources) Antihypoglycemic Agent Start: 01-25-2024 inject 1 mg by subcutaneous injection once glucagon (Gvoke HypoPen) 1 MG/0.2ML injection Inject 1 mg under the skin 1 (one) time if needed for low blood sugar 01/25/2024 Active Start: 01-25-2024 glucagon (Gvok e HypoPen) 1 MG/0.2ML injection Daily 01/25/2024 Active Start: 01-25-2024 Glucagon (Gvok e Hypopen 1-Pack) 1 mg/0.2 mL auto-injector Active 1 MG SUBCUT Daily as needed for hypoglycemia January 25, 2024 12:00am as directed Subcutaneous prn hypoglycemia may repeat in 15 minutes; Complies with drug therapy Start: 06-16-2023 insulin glargine 100 unt/ml injectable solution (20 sources) Insulin Analog Start: 10-29-2024 inject 50 [IU] by subcutaneous injection once daily in the morning Insulin Glargine (Lantus U-100 Insulin) 100 unit/mL solution Active 50 UNIT SUBCUT Every morning October 29, 2024 1:00am Complies with drug therapy Start: 08-07-2024 insulin glargi ne (Lantus SoloStar) 100 UNIT/ML pen Indications: 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) Inject 50 Units under the skin in the morning. 30 mL 3 08/07/2024 Active Start: 07-27-2024 End: 08-07-2024 Lantus SoloStar 100 UNIT/ML pen Indications: 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 (CMS/HCC) ADMINISTER 60 UNITS UNDER THE SKIN DAILY 30 mL 3 07/27/2024 08/07/2024 Discontinued Start: 02-25-2024 insulin glargi ne (Lantus SoloStar) 100 UNIT/ML pen Indications: 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 (CMS/HCC) Inject 60 Units under the skin Daily 30 mL 3 02/25/2024 Active Start: 07-15-2018 End: 07-29-2022 Insulin Glargine (Lantus Noelle ostar U-100 Insulin) 100 unit/mL (3 mL) insulin pen Discontinued 56 UNIT SUBCUT Daily before breakfast July 15, 2018 1:00am July 29, 2022 1:56am insulin glargine (LANTUS) 100 UNIT/ML injection vial Inject 60 Units into the skin every morning (before breakfast) Active Insulin Glargine (Lantus U-100 Insulin) 100 unit/mL solution (6 sources) Start: 10-29-2024 inject 50 [IU] by subcutaneous injection once daily in the morning Insulin Glargine (Lantus U-100 Insulin) 100 unit/mL solution Active 50 UNIT SUBCUT Every morning October 29, 2024 1:00am Start: 10-29-2024 inject 50 [IU] by olivera bcutaneous injection once daily in the morning Insulin Glargine (Lantus U-100 Insulin) 100 unit/mL solution Active 50 UNIT SUBCUT Every morning October 29, 2024 12:00am 3 ml insulin lispro 100 unt/ml pen injector (20 sources) Insulin Analog Start: 03-01-2025 inject 10 [IU] by subcutaneous injection once daily at breakfast insulin lispro (HumaLOG KWIKPEN) 100 UNIT/ML injection Indications: 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) INJECT 10 UNITS UNDER THE SKIN WITH BREAKFAST, 25 UNITS WITH LUNCH AND DINNER AND 10-15 UNITS WITH SNACKS PLUS CORRECTION. MAX OF 100 UNITS DAILY 30 mL 3 03/01/2025 Active Start: 10-29-2024 Insulin Lispro (Humalog Kwikpen Insulin) 100 unit/mL insulin pen Active 25 UNIT SUBCUT .with meals October 29, 2024 1:00am Complies with drug therapy Start: 09-18-2024 End: 03-01-2025 insulin lispro (HumaLOG KWIK PEN) 100 UNIT/ML injection Indications: 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) 10 units breakfast, 25 units lunch/dinner, 10-15 units snacks PLUS CORRECTION 1:30>150 MG/DL MAX DAILY DOSE OF 100 UNITS 30 mL 3 09/18/2024 03/01/2025 Discontinued Start: 08-07-2024 insulin lispro (HumaLOG KWIKPEN) 100 UNIT/ML injection Indications: 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 (CMS/HCC) 10 units breakfast, 25 units lunch/dinner, 10-15 units snacks PLUS CORRECTION 1:30>150 MG/DL MAX DAILY DOSE OF 100 UNITS 30 mL 3 08/07/2024 Active Start: 04-27-2024 End: 08-07-2024 inject 10 [IU] by subcutaneous injection at mealtime insulin lispro (HumaLOG KWIKPEN) 100 UNIT/ML injection Indications: 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 ([facility]) INJECT 10 UNITS UNDER THE SKIN WITH SMALL MEALS AND 20 UNITS WITH LARGE MEALS PLUS CORRECTION 1:30>150 MG/DL MAX DAILY DOSE OF 100 UNITS 30 mL 3 04/27/2024 08/07/2024 Discontinued (Dose adjustment) Start: 04-29-2020 End: 07-29-2022 Insulin Lispro (Humalog Kwik pen Insulin) 100 unit/mL insulin pen Discontinued 36 UNIT SUBCUT Daily with supper April 29, 2020 12:00am July 29, 2022 1:56am Start: 11-05-2018 End: 06-17-2019 Insulin Lispro (Humalog Kwik pen Insulin) 100 unit/mL Insulin Pen Discontinued 30 UNIT SUBCUT Daily before supper November 05, 2018 1:00am June 17, 2019 2:32pm Start: 07-15-2018 End: 07-29-2022 Insulin Lispro (Humalog Kwik pen Insulin) 100 unit/mL insulin pen Discontinued 18 UNIT SUBCUT With breakfast and lunch July 15, 2018 1:00am July 29, 2022 1:56am Insulin Lispro (Humalog Kwik pen Insulin) 100 unit/mL insulin pen (6 sources) Start: 10-29-2024 Insulin Lispro (Humalog Kwikpen Insulin) 100 unit/mL insulin pen Active 25 UNIT SUBCUT .with meals October 29, 2024 1:00am Start: 10-29-2024 Insulin Lispro (Humalog Kwikpen Insulin) 100 unit/mL insulin pen Active 25 UNIT SUBCUT .with meals October 29, 2024 12:00am insulin lispro 25 unt/ml / insulin lispro protamine, human 75 unt/ml injectable suspension (1 source) Insulin Analog insulin lispro p rotamine & lispro (HUMALOG MIX) (75-25) 100 UNIT per ML SUSP injection vial Inject 10 Units into the skin 2 times daily (with meals) Active 3 ml insulin, regular, human 500 unt/ml pen injector (20 sources) Insulin Start: 06-16-2023 Start: 05-11-2023 insulin regula r (HumuLIN R U-500 KWIKPEN) 500 UNIT/ML CONCENTRATED injection Indications: Diabetic polyneuropathy associated with type 2 diabetes mellitus ([facility]) Inject 110 units for breakfast subcutaneous and 90 units dinner 36 mL 3 05/11/2023 Active Start: 07-29-2022 End: 10-18-2023 Insulin Regular Hum U-500 Co nc (Humulin R U-500 (Conc) Kwikpen) 500 unit/mL (3 mL) insulin pen Discontinued 70 UNIT SUBCUT Daily July 29, 2022 1:00am October 18, 2023 8:46am afternoon Start: 07-29-2022 inject 50 [IU] by olivera bcutaneous injection twice daily Insulin Regular Hum U-500 Conc (Humulin R U-500 (Conc) Kwikpen) 500 unit/mL (3 mL) insulin pen Active 50 UNIT SUBCUT Twice daily July 29, 2022 1:00am Start: 07-29-2022 Insulin Regula r Hum U-500 Conc (Humulin R U-500 (Conc) Kwikpen) 500 unit/mL (3 mL) insulin pen Active 100 UNIT SUBCUT Every morning July 29, 2022 12:00am Start: 07-29-2022 Insulin Regula r Hum U-500 Conc (Humulin R U-500 (Conc) Kwikpen) 500 unit/mL (3 mL) insulin pen Active 75 UNIT SUBCUT Daily July 29, 2022 12:00am afternoon Start: 07-29-2022 inject 45 [IU] by olivera bcutaneous injection once daily Insulin Regular Hum U-500 Conc (Humulin R U-500 (Conc) Kwikpen) 500 unit/mL (3 mL) insulin pen Active 45 UNIT SUBCUT Daily July 29, 2022 12:00am afternoon Humulin R U-500 (Concentrated) Insulin 500 unit/mL subcutaneous soln inject by subcutaneous route as per insulin protocol inject 70 [IU] by olivera bcutaneous injection in the morning, then inject 45 [IU] by subcutaneous injection in the evening inject 80 [IU] by olivera bcutaneous injection in the morning, then inject 60 [IU] by subcutaneous injection in the evening HumuLIN R U-500 KwikPen 500 UNIT/ML as directed Subcutaneous 80 units in am, 60 units in pm Active ammonium lactate 120 mg/ml topical cream (2 sources) Start: 08-20-2023 End: 12-02-2023 ammonium lactate 12 % topical cream 09/03/2023 12/02/2023 Apply to feet twice daily to calluses of feet, not in-between toes levothyroxine sodium 0.1 mg oral tablet (20 sources) l-Thyrox ine Start: 04-29-2020 End: 07-25-2024 take 1 tablet by mouth once daily before breakfast Levothyroxine (Synthroid) 100 mcg tablet Active 100 MCG PO Daily before breakfast April 29, 2020 12:00am Complies with drug therapy Start: 07-15-2018 End: 04-29-2020 Levothyroxine 75 mcg Tablet Discontinued 100 MCG PO Daily July 15, 2018 1:00am April 29, 2020 11:10am Start: 07-15-2018 End: 04-29-2020 take 100 ug by mouth once daily Levothyroxine Disconti nued 100 MCG PO Daily July 15, 2018 1:00am April 29, 2020 11:10am take 1 capsule by mo [facility] once daily levothyroxine 100 mcg capsule take 1 capsule (100 mcg) by oral route once daily take [facility] daily in the morning lidocaine 0.05 mg/mg medicated patch (3 sources) Antiarrhythmic, Amide Local Anesthetic Start: 02-13-2025 apply 1 dose topically once daily as needed for pain Lidocaine 5 % adhesive patch,medicated Active 1 PATCH TOPICAL Daily as needed for pain 30 February 13, 2025 12:00am leave on most painful area for up to 12 hrs Complies with drug therapy LORazepam 1 mg oral tablet (20 sources) Benzodiazepine Start: 05-15-2024 End: 12-05-2024 take 1 tablet by mouth every eight hours as needed for anxiety Lorazepam (Ativan) 1 mg tablet Active 1 MG PO Every 8 hours as needed for anxiety 7 3 May 15, 2024 12:00am Complies with drug therapy methocarbamol 500 mg oral tablet (1 source) Muscle Relaxant take 1 tablet by mouth three times daily as needed for muscle spasms methocarbamol (ROBAXIN) 500 MG tablet Take 1 tablet by mouth 3 times daily as needed (back spasms) Active midodrine hydrochloride 10 mg oral tablet (13 sources) alpha-Adrenergic Agonist Start: 09-13-2024 midodrine (Proamatine) 10 MG tablet TAKE 1 TABLET BY MOUTH NEEDED DURING DIALYSIS FOR BLOOD PRESSURE SUPPORT 09/13/2024 Active take 4 tablets by mo [facility] once daily as needed midodrine (PROAMATINE) 2.5 MG tablet Patrice e 4 tablets by mouth daily as needed (As needed during dialysis days) Active Mounjaro (2 sources) Mounjaro Active ondansetron 4 mg disintegrating oral tablet (20 sources) Serotonin-3 Receptor Antagonist Start: 11-29-19 take 2 tablets by mouth every eight hours for nausea ondansetron ODT (Zofran-ODT) 4 MG disintegrating tablet Indications: Type 2 diabetes mellitus with foot ulcer, with long-term current use of insulin (HCC) Take 2 tablets (8 mg) by mouth every 8 (eight) hours if needed for nausea or vomiting 30 tablet 1 11/29/2023 Active Start: 11-01-2022 End: 11-04-2022 take 1 tablet by mouth every eight hours Ondansetron 4 mg tablet,disintegrating Discontinued 4 MG PO Q8H 9 3 November 01, 2022 1:00am November 04, 2022 5:59pm pregabalin 150 mg oral capsule (20 sources) Start: 02-02-2025 End: 02-07-2025 take 1 capsule by mouth once daily pregabalin (LYRICA) 75 MG capsule Indications: Idiopathic peripheral neuropathy Take 1 capsule by mouth daily for 5 doses. Max Daily Amount: 75 mg 5 capsule 02/02/2025 02/07/2025 Active Start: 10-18-2023 take 1 capsule by mo ut three times daily Start: 03-02-2023 End: 05-31-2025 take 1 capsule by mouth twice daily Pregabalin 150 mg capsule Active 150 MG PO Twice daily October 18, 2023 1:00am Free[employer]Si capsule Orally bid; Note: Source Status: Taking; Refills: 4; Qty: 60 Capsule; Provider: Marcia Segura Complies with drug therapy Start: 10-10-2022 End: 10-18-2023 take 3 capsules by mouth once daily Pregabalin (Lyrica) 50 mg capsule Discontinued 150 MG PO Daily October 10, 2022 1:00am October 18, 2023 9:10am Start: 10-10-2022 take 1 capsule by mo ut once daily Pregabalin (Lyrica) 50 mg capsule Active 50 MG PO Daily October 10, 2022 12:00am sevelamer carbonate 800 mg oral tablet (20 sources) Phosphate Binder Start: 07-26-2024 take 2 tablets by mouth three times daily at mealtime sevelamer carbonate (Renvela) 800 MG tablet TAKE 2 TABLETS BY MOUTH THREE TIMES DAILY WITH MEALS 07/26/2024 Active SZNERVE1 cream (3 sources) Start: 02-13-2025 apply 1-2 g topically three to four times daily SZNERVE1 cream Active 1 - 2 GM TOPICAL 3 to 4 times per day 120 February 13, 2025 12:00am Buderer Compounded Item: Amitriptyline HCl 2%, Capsaicin 0.025%, Clonidine HCl 0.23%, Gabapentin 6%, Lidocaine HCl 5% Cream Complies with drug therapy Start: 02-13-2025 apply 1-2 g topicall y three to four times daily SZNERVE1 cream Active 1 - 2 GM TOPICAL 3 to 4 times per day 120 February 13, 2025 12:00am Buderer Compounded Item: Amitriptyline HCl 2%, Capsaicin 0.025%, Clonidine HCl 0.23%, Gabapentin 6%, Lidocaine HCl 5% Cream Tenapanor HCl, CKD, (XPHOZAH) 30 MG TABS (1 source) take 1 tablet by mouth twice daily Tenapanor HCl, CKD, (XPHOZAH) 30 MG TABS Take 30 mg by mouth 2 times daily Active 5000 mg testosterone 0.01 mg/mg topical gel (20 sources) Androgen Start: 09-16-2023 Testosterone 1 % (50 mg/5 gram) Gel In Packet Active 1 PACKET TRANSDERML Daily September 16, 2023 1:00am Complies with drug therapy Start: 12-29-2022 Testosterone 1 .62 % gel apply 2 PUMPS topically every morning 12/29/2022 Active Testosterone 20. 25 MG/ACT (1.62%) as directed Transdermal Once a day Active Tirzepatide (20 sources) Start: 10-06-2023 Tirzepatide (M navneetro) 5 mg/0.5 mL pen injector Active 5 MG SUBCUT every week October 06, 2023 1:00am Complies with drug therapy Start: 10-06-2023 Tirzepatide (M ounjaro) 5 mg/0.5 mL pen injector Active 5 MG SUBCUT every week October 06, 2023 1:00am Start: 10-06-2023 Tirzepatide (M ounjaro) 5 mg/0.5 mL pen injector Active 5 MG SUBCUT every week October 06, 2023 12:00am Tirzepatide (Mounjaro) 10 MG/0.5ML solution auto-injector (20 sources) Start: 08-07-2024 inject 10 mg by subcutaneous injection every week Tirzepatide (Mounjaro) 10 MG/0.5ML solution auto-injector Indications: 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) Inject 10 mg under the skin 1 (one) time per week 6 mL 3 08/07/2024 Active Start: 08-07-2024 inject 10 mg by subc utaneous injection every week Tirzepatide (Mounjaro) 10 MG/0.5ML solution auto-injector Indications: 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 (CMS/HCC) Inject 10 mg under the skin 1 (one) time per week 6 mL 3 08/07/2024 Active traMADol hydrochloride 50 mg oral tablet (20 sources) Opioid Agonist Start: 03-07-2025 take 2 tablets by mouth once daily at bedtime Tramadol 50 mg tablet Active 50 MG PO Daily at bedtime March 07, 2025 4:04pm OK to take 2 pills on days Complies with drug therapy Start: 02-13-2025 End: 03-07-2025 take 1 tablet by mouth once daily at bedtime Tramadol 50 mg tablet Discontinued 50 MG PO Daily at bedtime February 13, 2025 12:00am March 07, 2025 4:06pm Start: 09-27-2024 End: 10-04-2024 take 1 tablet by mouth every eight hours traMADol (Ultram) 50 MG tablet Indications: Neuropathy Take 1 tablet (50 mg) by mouth every 8 (eight) hours for 7 days 21 tablet 09/27/2024 10/04/2024 Active Start: 11-23-2023 End: 02-13-2025 take 1 tablet by mouth every twelve hours as needed for pain Tramadol 50 mg Tablet Discontinued 50 MG PO Every 12 hours as needed for Pain October 29, 2024 1:00am February 13, 2025 8:41am traZODone hydrochloride 50 mg oral tablet (20 sources) Serotonin Reuptake Inhibitor Start: 11-07-2022 End: 08-07-2024 take 1 tablet by mouth once daily at bedtime as needed Trazodone 50 mg Tablet Active 50 MG PO Daily at bedtime as needed for insomnia October 18, 2023 1:00am Complies with drug therapy Start: 11-01-2022 End: 11-04-2022 take 1 tablet by mouth once daily at bedtime as needed Trazodone 50 mg tablet Discontinued 50 MG PO Daily at bedtime as needed for insomnia November 01, 2022 1:00am November 04, 2022 5:58pm Start: 07-29-2022 End: 10-10-2022 take 1 tablet by mouth once daily at bedtime as needed Trazodone 50 mg tablet Discontinued 50 MG PO Daily at bedtime as needed for insomnia July 29, 2022 1:00am October 10, 2022 5:28am Vitamin A 3 MG (93392 UT) (4 sources) take 1 capsule by mouth once jocelyn ly take 1 capsule by mouth once jocelyn ly Vitamin A 3 MG (63075 UT) 1 capsule Orally Once a day Active vitamin b12 1 mg oral tablet (20 sources) Vitamin B12 Start: 10-18-2023 take 1 tablet by mouth once daily Cyanocobalamin (Vitamin B-12) (Vitamin B-12) 1,000 mcg tablet Active 1000 MCG PO Daily October 18, 2023 1:00am Complies with drug therapy take 1 tablet by nida th every twenty-four hours Vitamin B12 1000 MCG 1 tablet Orally Once a day Active Vitamin B12 1000 MCG (9 sources) take 1 tablet by mouth once geo y take 1 tablet by mouth once geo y Vitamin B12 1000 MCG 1 tablet Orally Once a day Active Vitamin D (Cholecalciferol) 25 MCG (1000 UT) (4 sources) take 1 capsule by mouth once daily Vitamin D (Cholecalciferol) 25 MCG (1000 UT) 1 capsule Orally Once a day Active Xphozah 30 MG tablet (20 sources) Start: 12-29-2023 take 1 tablet by mouth once daily Xphozah 30 MG tablet Take 30 mg by mouth Daily 12/29/2023 Active zinc gluconate 50 mg oral tablet (4 sources) take 1 tablet by mouth every twenty-four hours Completed/Discontinued Medications Medication Drug Class(es) Dates Sig (Normalized) Sig (Original) acetaminophen 325 mg / HYDROcodone bitartrate 5 mg oral tablet (12 sources) Opioid Agonist Start: 11-28-2024 End: 02-13-2025 take 1 tablet by mouth every four to six hours as needed for pain Hydrocodone-Acetami nophen 5-325 mg tablet Discontinued 1 TAB PO EVERY 4-6 HOURS as needed for pain 10 3 November 28, 2024 February 13, 2025 8:41am Start: 09-19-2024 End: 09-24-2024 take 1 tablet by mouth every six hours for pain HYDROcodone-acetaminophen ([place]) 5-325 MG tablet Indications: Lymphedema Take 1 tablet by mouth every 6 (six) hours if needed for severe pain for up to 5 days 20 tablet 09/19/2024 09/24/2024 Active Start: 08-29-2024 End: 09-04-2024 take 1 tablet by mouth every six hours as needed for pain HYDROcodone-acetaminophen ([place]) 5-325 MG tablet TAKE 1 TABLET BY MOUTH EVERY 6 HOURS FOR 5 DAYS NEEDED FOR PAIN 08/29/2024 09/04/2024 Discontinued (Therapy completed) Start: 05-11-2024 End: 05-16-2024 take 1 tablet by mouth every six hours for pain HYDROcodone-acetaminophen ([place]) 5-325 MG tablet Indications: Neuropathy Take 1 tablet by mouth every 6 (six) hours if needed for severe pain for up to 5 days 20 tablet 05/11/2024 05/16/2024 Active [id number] actuat albuterol 0.09 mg/actuat metered dose inhaler (20 sources) beta2-Adrenergic Agonist Start: 09-26-2023 End: 10-18-2023 Albuterol Sulfate 90 mcg/actuation HFA aerosol inhaler Discontinued 2 INH INHALATION EVERY 4-6 HOURS as needed for shortness of breath or wheezing 8.5 September 26, 2023 1:00am October 18, 2023 8:42am amoxicillin 875 mg / clavulanate 125 mg oral tablet (20 sources) Penicillin-class Antibacterial Start: 09-16-2023 End: 10-06-2023 take 1 tablet by mouth twice daily Amoxicillin-Pot Clavulanate 875-125 mg tablet Discontinued 1 TAB PO Twice daily September 16, 2023 1:00am October 06, 2023 10:07am ascorbic acid 100 mg oral tablet (20 sources) Vitamin C Start: 07-29-2022 End: 09-16-2023 take 1 tablet by mouth once daily Ascorbic Acid (Vitamin C) (Vitamin C) 100 mg Tablet Discontinued 100 MG PO Daily July 29, 2022 1:00am September 16, 2023 12:06pm take 1 tablet by mouth every six hours bisacodyl 5 mg delayed release oral tablet (3 sources) Stimulant Laxative Start: 09-01-2022 End: 10-13-2023 bisacodyl (Dulcolax) 5 MG EC tablet Do not crush, chew, or split. Use as directed for colonoscopy 2 day prep. Start on 09/01/22 0 09/01/2022 10/13/2023 Discontinued (Therapy completed) capsaicin 0.08 mg/mg medicated patch (20 sources) Start: 07-07-2024 End: 12-05-2024 Capsaicin-Cleansing Gel (Qutenza) 8 % patch APPLY THE CONTENTS OF 1 KIT TOPICALLY EVERY 3 MONTHS. TO BE ADMINISTERED BY A HEALTHCARE PROFESSIONAL 07/07/2024 12/05/2024 Discontinued (Therapy completed) Start: 02-29-2024 End: 08-07-2024 Capsaicin-Cleansing Gel (Qut felicity, 4 Patch,) 8 % patch Indications: Type 2 diabetes mellitus with peripheral neuropathy (CMS/HCC) Apply 1 patch topically every 3 (three) months Follow instructions to prepare site. Prescriber to taqueria area. Once applied, remove after 30 minutes and clean area with supplied gel. 1 patch 3 02/29/2024 08/07/2024 Discontinued cephalexin 500 mg oral capsule (20 sources) Cephalosporin Antibacterial Start: 09-12-2024 End: 09-19-2024 take 1 capsule by mouth in the morning cephalexin (Keflex) 500 MG capsule Indications: Cellulitis of lower extremity, unspecified laterality Take 1 capsule (500 mg) by mouth in the morning and 1 capsule (500 mg) before bedtime. Do all this for 7 days. 14 capsule 09/12/2024 09/19/2024 Start: 10-10-2022 End: 11-04-2022 take 2 capsules by mouth twice daily Cephalexin 500 mg capsule Discontinued 1000 MG PO Twice daily 02 04October 10, 2022 1:00am November 04, 2022 6:00pm Start: 10-10-2022 End: 11-04-2022 take 1000 mg by mouth twice daily Cephalexin Discontinued 1000 MG PO Twice daily 02 04October 10, 2022 1:00am November 04, 2022 6:00pm Start: 07-22-2019 End: 04-29-2020 take 1 capsule by mouth four times daily Cephalexin (Keflex) 500 mg Capsule Discontinued 500 MG PO Four times daily 40 July 22, 2019 1:00am April 29, 2020 10:59am chlorhexidine gluconate 40 mg/ml medicated liquid soap (13 sources) Start: 07-24-2022 End: 08-07-2022 Hibiclens topical liquid 4 % 07/24/2022 08/07/2022 apply to affected area after shower on clean gauze for 5-10 minutes cleanse with saline and dry with gauze for 14 days cholecalciferol 0.05 mg oral capsule (20 sources) Vitamin D Start: 06-17-2019 End: 09-16-2023 take 1 capsule by mouth once daily Cholecalciferol (Vitamin D3) (Vitamin D3) 2,000 unit Capsule Discontinued 2000 UNIT PO Daily June 17, 2019 12:00am September 16, 2023 12:04pm cholecalciferol (D3-5) 5,000 Units tablet Daily. Active take 1 capsule by mouth once jocelyn ly vitamin D (CHOLECALCIFEROL) 125 MCG (5000 UT) CAPS capsule Take 1 capsule by mouth daily Active take 2 capsules by m outh every twenty-four hours Vitamin D (Cholecalciferol) 25 MCG (1000 UT) 2 capsule Orally Once a day Active take 1 capsule by mo uth every twenty-four hours Vitamin D (Cholecalciferol) 25 MCG (1000 UT) 1 capsule Orally Once a day Active codeine phosphate 2 mg/ml / promethazine hydrochloride 1.25 mg/ml oral solution (20 sources) Opioid Agonist, Phenothiazine Start: 09-11-2021 End: 07-29-2022 take 1 mL by mouth every six hours as needed for cough Promethazine-Codeine 6.25-10 mg/5 mL syrup Discontinued 5 ML PO Q6H as needed for cough 118 3 September 11, 2021 1:00am July 29, 2022 1:56am DULoxetine 60 mg delayed release oral capsule (20 sources) Serotonin and Norepinephrine Reuptake Inhibitor Start: 10-06-2023 End: 10-18-2023 take 1 capsule by mouth once daily Duloxetine 60 mg capsule,delayed release(DR/EC) Discontinued 60 MG PO Daily October 06, 2023 1:00am October 18, 2023 8:43am Start: 07-29-2022 End: 10-10-2022 take 1 capsule by mouth once daily Duloxetine 60 mg capsule,delayed release(DR/EC) Discontinued 60 MG PO Daily July 29, 2022 1:00am October 10, 2022 5:28am Start: 07-15-2018 End: 11-05-2018 take 1 capsule by mouth once daily Duloxetine 30 mg capsule,delayed release(DR/EC) Discontinued 30 MG PO Daily July 15, 2018 1:00am November 05, 2018 3:50pm escitalopram 10 mg oral tablet (20 sources) Serotonin Reuptake Inhibitor Start: 09-13-2024 End: 12-05-2024 take 1 tablet by mouth once daily escitalopram (Lexapro) 10 MG tablet Indications: Anxiety TAKE 1 TABLET(10 MG) BY MOUTH DAILY 90 tablet 1 09/13/2024 12/05/2024 Discontinued (Therapy completed) Start: 05-16-2024 take 1 tablet by nida th once daily escitalopram (Lexapro) 10 MG tablet Indications: Anxiety Take 1 tablet (10 mg) by mouth Daily 30 tablet 3 05/16/2024 Active ferrous sulfate 325 mg oral tablet (20 sources) Start: 07-22-2019 End: 09-16-2023 take 1 tablet by mouth once daily Ferrous Sulfate (Iron) 325 mg (65 mg iron) Tablet Discontinued 325 MG PO Daily July 22, 2019 1:00am September 16, 2023 12:05pm fluticasone propionate 0.05 mg/actuat metered dose nasal spray (7 sources) Corticosteroid Start: 09-30-2023 End: 09-29-2024 take 1-2 spray(s) nasal route in the morning fluticasone (Flonase) 50 MCG/ACT nasal spray Indications: Chronic maxillary sinusitis Administer 1-2 sprays into each nostril in the morning. Shake gently. Before first use, prime pump. After use, clean tip and replace cap.. 16 g 2 09/30/2023 10/13/2023 Discontinued (Therapy completed) Start: 07-19-2023 End: 11-16-2023 fluticasone topical cream 0. 05 % 07/19/2023 11/16/2023 apply a thin layer to the right heel by topical route twice daily ; rub in gently and completely furosemide 80 mg oral tablet (20 sources) Loop Diuretic Start: 09-14-2024 End: 10-02-2024 take 1 tablet by mouth in the morning furosemide (Lasix) 80 MG tablet Take 80 mg by mouth in the morning and 80 mg before bedtime. 09/14/2024 10/02/2024 Discontinued Start: 03-02-2023 End: 10-29-2024 take 2 tablets by mouth twice daily Furosemide (Lasix) 40 mg tablet Discontinued 80 MG PO Twice daily September 16, 2023 12:07pm October 29, 2024 8:41pm Start: 03-02-2023 take 2 tablets by [facility] in the morning furosemide (Lasix) 40 MG tablet Indications: End stage renal disease (CMS/HCC) Take 2 tablets (80 mg) by mouth in the morning and 2 tablets (80 mg) before bedtime. 0 03/02/2023 Active Start: 04-29-2020 End: 09-16-2023 take 1 tablet by mouth once daily Furosemide (Lasix) 40 mg tablet Discontinued 40 MG PO Daily November 07, 2022 5:27pm September 16, 2023 12:07pm take 1 tablet by [facility] every twelve hours Furosemide 80 MG 1 tablet Orally twice a day for 30 days Active take 2 tablets by [facility] every twenty-four hours Lasix 40 MG 2 tablet Orally Daily for 90 day(s) Active gabapentin 300 mg oral capsule (20 sources) Anti-epileptic Agent Start: 05-17-2024 End: 12-05-2024 take 1 capsule by mouth three times weekly gabapentin (Neurontin) 300 MG capsule Indications: Type 2 diabetes mellitus with peripheral neuropathy (CMS/HCC) Take 1 capsule (300 mg) by mouth 3 (three) times a week After dialysis 30 capsule 3 05/17/2024 12/05/2024 Discontinued (Therapy completed) Start: 05-17-2024 take 1 capsule by [facility] three times weekly gabapentin (Neurontin) 300 MG capsule Indications: Type 2 diabetes mellitus with peripheral neuropathy (CMS/HCC) Take 1 capsule (300 mg) by mouth 3 (three) times a week After dialysis 30 capsule 3 05/17/2024 Active Start: 05-17-2024 take 1 capsule by [facility] three times weekly gabapentin (Neurontin) 300 MG capsule Indications: Type 2 diabetes mellitus with peripheral neuropathy (CMS/HCC) Take 1 capsule (300 mg) by mouth 3 (three) times a week After dialysis 30 capsule 3 05/17/2024 Active Start: 04-29-2020 End: 07-29-2022 take 1 tablet by mouth once daily at bedtime Gabapentin (Neurontin) 600 mg tablet Discontinued 600 MG PO Daily at bedtime April 29, 2020 12:00am July 29, 2022 1:56am Start: 11-05-2018 End: 04-29-2020 take 2 capsules by mouth at bedtime Gabapentin 300 mg Capsule Discontinued 600 MG PO Bedtime June 17, 2019 12:00am April 29, 2020 11:09am Start: 11-05-2018 End: 04-29-2020 take 600 mg by mouth at bedtime Gabapentin Discontinue d 600 MG PO Bedtime June 17, 2019 12:00am April 29, 2020 11:09am Start: 07-15-2018 End: 06-17-2019 take 1 capsule by mouth twice daily Gabapentin 300 mg Capsule Discontinued 300 MG PO Twice daily June 17, 2019 12:00am June 17, 2019 2:31pm gentamicin 0.001 mg/mg topic al ointment (10 sources) Start: 05-04-2023 End: 08-02-2023 gentamicin topical ointment 0.1 % 05/04/2023 08/02/2023 apply a small amount to the affected area by topical route 1 time daily to right heel prior to gentian amita Start: 12-28-2022 End: 10-13-2023 gentamicin (Garamycin) 0.1 % cream apply A PEA SIZED AMOUNT to [employer] CATHETER EXIT SITE ONCE DAILY 0 12/28/2022 10/13/2023 Discontinued (Therapy completed) gentian amita 10 mg/ml topical solution (7 sources) Start: 04-12-2023 End: 07-11-2023 gentian amita 1 % topical solution 04/12/2023 07/11/2023 Apply to affected areas with gauze once daily. hydrALAZINE hydrochloride 50 mg oral tablet (20 sources) Arteriolar Vasodilator Start: 11-07-2022 End: 09-16-2023 take 2 tablets by mouth three times daily Hydralazine 50 mg Tablet Discontinued 100 MG PO Three times daily 180 November 07, 2022 1:00am September 16, 2023 12:05pm Start: 11-07-2022 End: 09-16-2023 take 100 mg by mouth three times daily Hydralazine Discontinued 100 MG PO Three times daily 180 November 07, 2022 1:00am September 16, 2023 12:05pm Start: 03-12-2022 End: 11-07-2022 take 1 tablet by mouth twice daily Hydralazine 25 mg tablet Discontinued 25 MG PO Twice daily July 29, 2022 1:00am November 07, 2022 5:29pm ibuprofen 600 mg oral tablet (10 sources) Nonsteroidal Anti-inflammatory Drug Start: 08-29-2024 End: 09-04-2024 take 1 tablet by mouth every six hours as needed for pain, then take 4 tablets by mouth every twenty-four hours as needed for pain ibuprofen 600 MG tablet TAKE 1 TABLET BY MOUTH EVERY 6 HOURS NEEDED FOR PAIN. 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 (CMS/HCC) INJECT 10 UNITS UNDER THE SKIN WITH SMALL MEALS AND 20 UNITS WITH LARGE MEALS PLUS CORRECTION 1:30>150 MG/DL MAX DAILY DOSE OF 100 UNITS 30 mL 1 04/20/2024 04/27/2024 Discontinued (Cost of medication) levoFLOXacin 750 mg oral tablet (20 sources) Quinolone Antimicrobial Start: 06-20-2019 End: 07-22-2019 Levofloxacin (Levaquin) 750 mg tablet Discontinued 750 MG PO Q48H 7 June 20, 2019 12:00am July 22, 2019 7:56pm linezolid 600 mg oral tablet (17 sources) Oxazolidinone Antibacterial Start: 11-23-2023 End: 10-29-2024 take 1 tablet by mouth twice daily Linezolid 600 mg tablet Discontinued 600 MG PO Twice daily 25 06November 23, 2023 12:00am October 29, 2024 8:42pm lisinopril 10 mg oral tablet (20 sources) Angiotensin Converting Enzyme Inhibitor Start: 07-15-2018 End: 10-13-2023 take 1 tablet by mouth once daily Lisinopril 10 mg Tablet Discontinued 10 MG PO Daily November 05, 2018 1:00am November 06, 2018 6:49pm 24 hr NIFEdipine 90 mg extended release oral tablet (20 sources) Dihydropyridine Calcium Channel Nam Start: 11-04-2022 End: 09-16-2023 take 1 tablet by mouth once daily Nifedipine 90 mg tablet extended release Discontinued 90 MG PO Daily November 04, 2022 1:00am September 16, 2023 12:06pm Start: 04-29-2020 End: 04-29-2020 take 90 mg by mouth once daily Nifedipine Discontinued 90 MG PO Daily April 29, 2020 10:34am April 29, 2020 11:09am Start: 04-29-2020 End: 11-04-2022 take 1 tablet by mouth once daily Nifedipine (Procardia Xl) 90 mg tablet extended release 24hr Discontinued 90 MG PO Daily April 29, 2020 12:00am November 04, 2022 5:59pm Start: 11-06-2018 End: 04-29-2020 take 1 tablet by mouth once daily Nifedipine 60 mg tablet extended release 24hr Discontinued 90 MG PO Daily April 29, 2020 10:34am April 29, 2020 11:09am predniSONE 20 mg oral tablet (20 sources) Start: 09-26-2023 End: 10-06-2023 take 2 tablets by mouth once daily Prednisone 20 mg tablet Discontinued 40 MG PO Daily September 26, 2023 1:00am October 06, 2023 10:04am Start: 09-26-2023 End: 10-06-2023 take 40 mg by mouth once daily Prednisone Discontinued 40 MG PO Daily September 26, 2023 1:00am October 06, 2023 10:04am Semaglutide, 2 MG/DOSE, (Ozempic, 2 MG/DOSE,) 8 MG/3ML solution pen-injector (1 source) Start: 02-25-2024 End: 04-27-2024 inject 2 mg by subcutaneous injection every week Semaglutide, 2 MG/DOSE, (Ozempic, 2 MG/DOSE,) 8 MG/3ML solution pen-injector Indications: 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 (CMS/HCC) Inject 2 mg under the skin 1 (one) time per week 9 mL 3 02/25/2024 04/27/2024 Discontinued silver sulfADIAZINE 10 mg/ml topical cream (2 sources) Sulfonamide Antibacterial Start: 08-20-2023 End: 09-19-2023 Silvadene 1 % topical cream 08/20/2023 09/19/2023 apply a 1/16 inch (1.5 mm) thick layer to wound(s) once daily sodium bicarbonate 650 mg oral tablet (20 sources) Start: 11-07-2022 End: 10-18-2023 take 2 tablets by mouth twice daily Sodium Bicarbonate 650 mg Tablet Discontinued 1300 MG PO Twice daily 120 November 07, 2022 1:00am October 18, 2023 8:50am Start: 11-07-2022 End: 10-18-2023 take 1300 mg by mouth twice daily Sodium Bicarbonate Discontinued 1300 MG PO Twice daily 120 November 07, 2022 1:00am October 18, 2023 8:50am [place] [address] mg powder for oral suspension (20 sources) Start: 02-02-2025 End: 02-02-2025 10 g, Oral, ONCE, 1 dose, On Wed02/02/25 at 1130, Empty entire contents of the packet(s) into a glass with 3 tablespoons (45 mL) of water. Stir well and drink immediately; if powder remains in the glass, add water, stir and drink immediately; repeat until no powder remains. Administer other oral medications 2 hours before or 2 hours after dose. Start: 11-07-2022 End: 10-06-2023 Sodium Zirconium Cyclosilica te (Lokelma) 10 gram Powder In Packet Discontinued 10 GM PO Daily November 07, 2022 1:00am October 06, 2023 10:05am spironolactone 50 mg oral tablet (20 sources) Aldosterone Antagonist Start: 11-05-2018 End: 11-06-2018 take 1 tablet by mouth once daily Spironolactone 50 mg Tablet Discontinued 50 MG PO Daily November 05, 2018 1:00am November 06, 2018 1:28pm Start: 07-15-2018 End: 07-15-2018 take 1 tablet by mouth once daily Spironolactone 25 mg Tablet Discontinued 25 MG PO Daily July 15, 2018 1:00am July 15, 2018 12:27pm Tirzepatide (Mounjaro) 7.5 MG/0.5ML solution pen-injector (20 sources) Start: 04-27-2024 End: 08-07-2024 inject 7.5 mg by subcutaneous injection every week Tirzepatide (Mounjaro) 7.5 MG/0.5ML solution pen-injector Indications: 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 (CMS/HCC) Inject 7.5 mg under the skin 1 (one) time per week 6 mL 3 04/27/2024 08/07/2024 Discontinued Start: 04-27-2024 inject 7.5 mg by sub cutaneous injection every week Tirzepatide (Mounjaro) 7.5 MG/0.5ML solution pen-injector Indications: 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 (CMS/HCC) Inject 7.5 mg under the skin 1 (one) time per week 6 mL 3 04/27/2024 Active Start: 10-11-2023 inject 7.5 mg by sub cutaneous injection every week Tirzepatide (Mounjaro) 7.5 MG/0.5ML solution pen-injector Indications: Type 2 diabetes mellitus with ESRD (end-stage renal disease) (CMS/HCC) Inject 7.5 mg under the skin 1 (one) time per week 2 mL 3 10/11/2023 Active vitamin a 2.4 mg oral capsule (20 sources) Vitamin A Start: 07-29-2022 End: 09-16-2023 take 1 capsule by mouth once daily Vitamin A 2,400 mcg Capsule Discontinued 2400 MCG PO Daily July 29, 2022 1:00am September 16, 2023 12:06pm Vitamin B Complex (20 sources) Start: 07-29-2022 End: 09-16-2023 take 1 tablet by mouth once daily Vitamin B Complex Discontinued 1 TAB PO Daily July 29, 2022 1:00am September 16, 2023 12:06pm Start: 07-29-2022 End: 09-16-2023 take 1 tablet by mouth once daily Vitamin B Complex Discontinued 1 TAB PO Daily July 29, 2022 12:00am September 16, 2023 11:06am Start: 07-29-2022 take 1 tablet by nida th once daily Vitamin B Complex Active 1 TAB PO Daily July 29, 2022 1:00am Start: 07-29-2022 take 1 tablet by nida th once daily Vitamin B Complex Active 1 TAB PO Daily July 29, 2022 12:00am take 1 capsule by mo [facility] once daily vitamin B complex capsule take 1 capsule by oral route daily Vitamin B Comple x - as directed Orally TWICE A DAY Active Vitamin B Complex Tablet (8 sources) Start: 07-29-2022 End: 09-16-2023 take 1 tablet by mouth once daily Vitamin B Complex Tablet Discontinued 1 TAB PO Daily July 29, 2022 1:00am September 16, 2023 12:06pm Start: 07-29-2022 End: 09-16-2023 take 1 tablet by mouth once daily Vitamin B Complex Tablet Discontinued 1 TAB PO Daily July 29, 2022 12:00am September 16, 2023 11:06am Vitamin D3 oral (15 sources) Vitamin D3 oral take 1 by oral route daily zinc acetate 25 mg oral capsule (20 sources) Start: 07-29-2022 End: 09-16-2023 take 1 capsule by mouth once daily Zinc Acetate 25 mg (zinc) Capsule Discontinued 25 MG PO Daily July 29, 2022 1:00am September 16, 2023 12:06pm Problems Active Problems Problem Classification Problem Date Documented Date Episodic/Chronic Acquired foot deformities (20 sources) Hallux rigidus, right foot Onset: Chronic Acute and unspecified renal failure (20 sources) Acute renal failure syndrome; Translations: [Acute kidney failure, unspecified] Onset: 4 Resolved: 4 06-18-2019 Episodic Administrative/social admission (16 sources) Dietary counseling and surveillance; Translations: [Patient encounter status] Onset: 5 Episodic Anxiety disorders (20 sources) Anxiety; Translations: [Anxiety disorder, unspecified] Onset: 3 07-29-2022 Chronic Chronic kidney disease (20 sources) Chronic kidney disease stage 4; Translations: [Chronic kidney disease, stage 4 (severe)] Onset: 2 Resolved: 2 Chronic Chronic obstructive pulmonary disease and bronchiectasis (20 sources) Chronic bronchitis; Translations: [Unspecified chronic bronchitis] Onset: 4 Resolved: 4 09-26-2023 Chronic Chronic ulcer of skin (20 sources) Chronic ulcer of foot; Translations: [Non-pressure chronic ulcer of other part of left foot with fat layer exposed] Onset: 2 Resolved: 5 07-22-2019 Chronic Deficiency and other anemia (20 sources) Anemia secondary to renal failure; Translations: [Anemia in chronic kidney disease] Chronic Deficiency and other anemia (6 sources) Anemia in chronic kidney disease; Translations: [Anemia secondary to renal failure] Onset: 2 Resolved: 2 Chronic Deficiency and other anemia (20 sources) Anemia; Translations: [Anemia, unspecified] Onset: 3 Resolved: 3 07-22-2019 Episodic Diabetes mellitus with complications (20 sources) Type 2 diabetes mellitus; Translations: [Type 2 diabetes mellitus with diabetic chronic kidney disease] Onset: 8 Resolved: 5 Chronic Diabetes mellitus without complication (20 sources) Diabetes mellitus; Translations: [Type 2 diabetes mellitus without complications] 06-19-2019 Chronic Diseases of white blood cells (17 sources) Leukocytosis; Translations: [Elevated white blood cell count, unspecified] 11-22-2023 Chronic Disorders of lipid metabolism (20 sources) Hyperlipidemia; Translations: [Hyperlipidemia, unspecified] Onset: 2 Resolved: 4 Chronic Essential hypertension (20 sources) Hypertensive disorder; Translations: [Essential (primary) hypertension] Onset: 2 04-29-2020 Chronic Fever of unknown origin (20 sources) Fever; Translations: [Fever, unspecified] 11-22-2023 Episodic Fluid and electrolyte disorders (20 sources) Hyperkalemia; Translations: [Acute hyperkalemia] Onset: 2 Resolved: 4 Episodic Hypertension with complications and secondary hypertension (20 sources) Hypertensive renal disease; Translations: [Hypertensive chronic kidney disease with stage 1 through stage 4 chronic kidney disease, or unspecified chronic kidney disease] Onset: 2 Resolved: 2 Chronic Lymphadenitis (8 sources) Inguinal lymphadenopathy; Translations: [Localized enlarged lymph nodes] Onset: 4 08-07-2024 Episodic Malaise and fatigue (20 sources) Fatigue; Translations: [Other fatigue] Onset: 4 Resolved: 4 04-29-2020 Episodic Miscellaneous mental health disorders (20 sources) Anxiety; Translations: [Other symptoms and signs involving emotional state] 07-29-2022 Episodic Nausea and vomiting (20 sources) Vomiting; Translations: [Vomiting, unspecified] Onset: 4 Resolved: 4 11-01-2022 Episodic Nutritional deficiencies (20 sources) Vitamin D deficiency; Translations: [Vitamin D deficiency, unspecified] Onset: 3 03-02-2023 Chronic Open wounds of extremities (20 sources) Unspecified open wound, right foot, initial encounter; Translations: [Injury of right foot] Onset: 2 11-22-2023 Episodic Other aftercare (1 source) 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 (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 therapy Episodic Other aftercare (13 sources) Drug therapy finding; Translations: [Other [facility] (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 therapy] 12-16-2023 Episodic Other circulatory disease (14 sources) Arteriovenous fistula; 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 fistula, acquired] 12-06-2023 Chronic Other circulatory disease (5 sources) Arteriovenous fistula, acquired; 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 fistula, acquired] 12-06-2023 Chronic Other connective tissue disease (20 sources) Pain in right foot; Translations: [Pain in right foot] Onset: 2 Episodic Other connective tissue disease (2 sources) Pain in left foot; Translations: [Pain in left foot] Onset: 5 Episodic Other connective tissue disease (1 source) Foot pain Onset: 5 Episodic Other connective tissue disease (1 source) Neuralgia; Translations: [Neuralgia and neuritis, unspecified] Onset: 5 Episodic Other connective tissue disease (2 sources) Neuralgia and neuritis, unspecified; Translations: [Neuralgia and neuritis, unspecified] Onset: 5 Episodic Other diseases of kidney and ureters (20 sources) Secondary hyperparathyroidism; Translations: [Secondary hyperparathyroidism of renal origin] Chronic Other diseases of kidney and ureters (5 sources) Secondary hyperparathyroidism of renal origin Onset: 2 Resolved: 2 Chronic Other diseases of veins and lymphatics (18 sources) Lymphedema; Translations: [Lymphedema, not elsewhere classified] Onset: 5 09-05-2024 Chronic Other diseases of veins and lymphatics (2 sources) Peripheral venous insufficiency; Translations: [Venous insufficiency (chronic) (peripheral)] 09-05-2024 Episodic Other endocrine disorders (11 sources) Hypoglycemia; Translations: [Hypoglycemia, unspecified] Chronic Other endocrine disorders (2 sources) Hypoglycemia, unspecified; Translations: [Hypoglycemia] Chronic Other endocrine disorders (20 sources) Male hypogonadism; Translations: [Testicular hypofunction] Onset: 2 10-13-2023 Chronic Other endocrine disorders (17 sources) Hyperparathyroidism; Translations: [Hyperparathyroidism, unspecified] 11-21-2023 Chronic Other endocrine disorders (2 sources) Hyperparathyroidism, unspecified; Translations: [Hyperparathyroidism, unspecified] 11-23-2023 Chronic Other endocrine disorders (2 sources) Testicular hypofunction; 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 Other gastrointestinal disorders (20 sources) Diarrhea; Translations: [Diarrhea, unspecified] Onset: 4 Resolved: 4 11-01-2022 Episodic Other injuries and conditions due to external causes (17 sources) Systemic inflammatory response syndrome; Translations: [Systemic inflammatory response syndrome (SIRS) of non-infectious origin without acute organ dysfunction] 11-20-2023 Episodic Other injuries and conditions due to external causes (8 sources) Systemic inflammatory response syndrome (SIRS) of non-infectious origin without acute organ dysfunction; Translations: [Systemic inflammatory response syndrome, unspecified] 11-23-2023 Episodic Other male genital disorders (20 sources) Male erectile dysfunction, unspecified; Translations: [Impotence of organic origin] Onset: 2 10-13-2023 Chronic Other nervous system disorders (5 sources) Other chronic pain; Translations: [Other chronic pain] Onset: 2 Chronic Other nervous system disorders (18 sources) Neuropathy; Translations: [Polyneuropathy, unspecified] 06-08-2024 Chronic Other nervous system disorders (3 sources) Idiopathic peripheral neuropathy; Translations: [Hereditary and idiopathic neuropathy, unspecified] Onset: 5 02-02-2025 Chronic Other nervous system disorders (3 sources) Polyneuropathy, unspecified; Translations: [Polyneuropathy, unspecified] Onset: 5 Chronic Other nervous system disorders (1 source) Hereditary and idiopathic neuropathy, unspecified; Translations: [Hereditary and idiopathic neuropathy, unspecified] Onset: 5 Chronic Other nervous system disorders (7 sources) Chronic pain; Translations: [Other chronic pain] 02-13-2025 Chronic Other non-traumatic joint disorders (1 source) Charcot's joint, right ankle and foot; Translations: [CHARCOTS JOINT RIGHT ANKLE AND F] Onset: 2 Chronic Other non-traumatic joint disorders (1 source) Other specified arthritis, unspecified site; Translations: [OTHER SPECIFIED ARTHRITIS UNS SITE] Onset: 2 Chronic Other nutritional; endocrine; and metabolic disorders (12 sources) Body mass index 40+ - severely obese; Translations: [Body mass index (BMI) 40.0-44.9, adult] Chronic Other nutritional; endocrine; and metabolic disorders (1 source) Body mass index (BMI) 40.0-44.9, adult Chronic Other nutritional; endocrine; and metabolic disorders (20 sources) Severe obesity; Translations: [Morbid (severe) obesity due to excess calories] Onset: 3 09-30-2023 Chronic Other nutritional; endocrine; and metabolic disorders (17 sources) Hypomagnesemia; Translations: [Hypomagnesemia] 11-20-2023 Chronic Other nutritional; endocrine; and metabolic disorders (8 sources) Hypomagnesemia; Translations: [Disorders of magnesium metabolism] 11-23-2023 Chronic Other screening for suspected conditions (not mental disorders or infectious disease) (2 sources) Abnormal findings on diagnostic imaging of other specified body structures; Translations: [Abnormal findings on diagnostic imaging of other specified body structures] Onset: 5 Chronic Other skin disorders (20 sources) Granulomatous disorder of the skin and subcutaneous tissue, unspecified Onset: 2 Episodic Other skin disorders (20 sources) Changes in skin texture Onset: 3 Episodic Other skin disorders (20 sources) Other specified disorders of the skin and subcutaneous tissue Onset: 3 Episodic Other skin disorders (6 sources) 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 of right lower leg; Translations: [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, 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, right lower limb] 11-27-2024 Episodic Peripheral and visceral atherosclerosis (20 sources) Peripheral vascular disease, unspecified; Translations: [Peripheral vascular disease] Onset: 2 03-02-2023 Chronic Residual codes; unclassified (20 sources) Obstructive sleep apnea syndrome; Translations: [Obstructive sleep apnea (adult) (pediatric)] Onset: 3 03-02-2023 Chronic Residual codes; unclassified (20 sources) Insomnia; Translations: [Insomnia, unspecified] Onset: 3 07-29-2022 Episodic Residual codes; unclassified (18 sources) Localized edema; Translations: [Edema] Onset: 3 11-23-2023 Episodic Residual codes; unclassified (20 sources) Edema of right lower limb; Translations: [Localized edema] Onset: 4 Resolved: 4 10-10-2022 Episodic Residual codes; unclassified (1 source) Illness, unspecified; Translations: [Illness, unspecified] Onset: 5 Episodic Septicemia (except in labor) (20 sources) Sepsis; Translations: [Sepsis, unspecified organism] 11-21-2023 Episodic Spondylosis; intervertebral disc disorders; other back problems (10 sources) Intervertebral disc disorders with radiculopathy, lumbar region; Translations: [Lumbar radiculopathy] Onset: 5 Episodic Thyroid disorders (20 sources) Hypothyroidism, unspecified; Translations: [Acquired hypothyroidism] Onset: 2 03-02-2023 Chronic Unclassified (1 source) CONTACT W/AND (SUSP) EXPOS COVID-19; Translations: [CONTACT W/AND (SUSP) EXPOS COVID-19] Onset: 2 Unclassified (1 source) Med Refill Onset: 5 Unclassified (1 source) medication refill Onset: 5 Unclassified (1 source) Low back pain, unspecified; Translations: [Low back pain, unspecified] Onset: 5 Unclassified (2 sources) Post-op; Translations: [Post-op] Onset: 4 Viral infection (20 sources) Disease caused by 2019-nCoV; Translations: [COVID-19] Onset: 2 Resolved: 4 09-11-2021 Episodic Past or Other Problems Problem Classification Problem Date Documented Da te Episodic/Chronic Acquired foot deformities (1 source) Flat foot [pes planus] (acquired), left foot; Translations: [FLAT FOOT PES PLANUS ACQ LT FOOT] Onset: 03-05-2022 Episodic Allergic reactions (20 sources) Atopic dermatitis; Translations: [Atopic dermatitis, unspecified] Onset: 03-02-2023 Resolved: 03-02-2023 03-02-2023 Chronic Complication of device; implant or graft (20 sources) Malfunction of peritoneal dialysis catheter; Translations: [Breakdown (mechanical) of intraperitoneal dialysis catheter, initial encounter] Onset: 10-13-2023 Resolved: 08-07-2024 10-13-2023 Episodic Deficiency and other anemia (20 sources) Iron deficiency anemia; Translations: [Iron deficiency anemia, unspecified] Onset: 08-10-2022 10-13-2023 Episodic Genitourinary symptoms and ill-defined conditions (20 sources) Persistent proteinuria, unspecified; Translations: [Microalbuminuria] Onset: 12-03-2021 Resolved: 09-30-2023 Episodic Glaucoma (20 sources) Glaucoma; Translations: [Unspecified glaucoma] Onset: 03-02-2023 Resolved: 10-02-2023 10-02-2023 Chronic Infective arthritis and osteomyelitis (except that caused by tuberculosis or sexually transmitted disease) (20 sources) Other acute osteomyelitis, left ankle and foot; Translations: [Osteomyelitis of left foot] Onset: 07-28-2019 Resolved: 11-29-2023 09-30-2023 Chronic Open wounds of extremities (20 sources) Open wound of left foot; Translations: [Unspecified open wound, left foot, initial encounter] Onset: 05-02-2022 Resolved: 11-29-2023 10-13-2023 Episodic Other aftercare (20 sources) Long-term current use of insulin; Translations: [assisted (current) use of insulin] Onset: 03-02-2023 03-02-2023 Episodic Other aftercare (3 sources) 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; Translations: [Insulin long-term use] Onset: 10-29-2024 Episodic Other aftercare (2 sources) Encounter for follow-up examination after completed treatment for conditions other than malignant neoplasm; Translations: [Encounter for follow-up examination after completed treatment for conditions other than malignant neoplasm] Onset: 07-11-2024 Episodic Other and ill-defined heart disease (20 sources) Mild left ventricular systolic dysfunction; Translations: [Other ill-defined heart diseases] Onset: 03-02-2023 Resolved: 09-30-2023 09-30-2023 Chronic Other and unspecified benign neoplasm (20 sources) Adenoma of left adrenal gland; Translations: [Benign neoplasm of left adrenal gland] Onset: 05-02-2022 10-13-2023 Episodic Other bone disease and musculoskeletal deformities (20 sources) History of amputation of left lesser toe; Translations: [Acquired absence of other left toe(s)] Onset: 10-02-2023 10-02-2023 Episodic Other connective tissue disease (1 source) Short Achilles tendon (acquired), right ankle; Translations: [SHORT ACHILLES TENDON ACQ RT ANKLE] Onset: 03-05-2022 Episodic Other connective tissue disease (1 source) Other specified soft tissue disorders; Translations: [Other specified soft tissue disorders] Onset: 11-27-2024 Episodic Other connective tissue disease (1 source) Pain in right lower leg; Translations: [Pain in right lower leg] Onset: 08-28-2024 Episodic Other diseases of veins and lymphatics (1 source) Venous insufficiency (chronic) (peripheral); Translations: [VENOUS INSUFF CHRONIC PERIPHERAL] Onset: 03-05-2022 Episodic Other diseases of veins and lymphatics (14 sources) Stasis dermatitis; Translations: [Venous insufficiency (chronic) (peripheral)] Onset: 09-20-2024 09-20-2024 Episodic Other endocrine disorders (20 sources) Adrenal mass; Translations: [Other specified disorders of adrenal gland] Onset: 03-02-2023 Resolved: 02-25-2024 03-02-2023 Chronic Other gastrointestinal disorders (20 sources) History of pancreatitis; Translations: [Personal history of other diseases of the digestive system] Onset: 05-02-2022 Resolved: 08-07-2024 10-13-2023 Episodic Other non-traumatic joint disorders (20 sources) Charcot's arthropathy; Translations: [Charcot's joint, unspecified ankle and foot] Onset: 05-02-2022 Resolved: 02-25-2024 10-13-2023 Chronic Other screening for suspected conditions (not mental disorders or infectious disease) (8 sources) Abnormal findings on diagnostic imaging of other abdominal regions, including retroperitoneum; Translations: [Abnormal result of other cardiovascular function study] Onset: 05-26-2024 Episodic Other skin disorders (1 source) Corns and callosities; Translations: [CORNS AND CALLOSITIES] Onset: 03-15-2022 Episodic Other skin disorders (20 sources) Mass of subcutaneous tissue of back; Translations: [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, 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, trunk] Onset: 03-02-2023 Resolved: 03-02-2023 03-02-2023 Episodic Other skin disorders (20 sources) Finding of trunk structure; Translations: [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, 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, trunk] Onset: 08-10-2022 Resolved: 08-07-2024 10-13-2023 Episodic Other skin disorders (1 source) 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, 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, right lower limb; Translations: [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, 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, right lower limb] Onset: 11-27-2024 Episodic Phlebitis; thrombophlebitis and thromboembolism (10 sources) Acute embolism and thrombosis of unspecified deep veins of unspecified lower extremity Onset: 10-08-2022 Episodic Residual codes; unclassified (20 sources) Reduced libido; Translations: [Decreased libido] Onset: 06-18-2022 Resolved: 08-07-2024 10-13-2023 Episodic Residual codes; unclassified (2 sources) Tobacco use; Translations: [Tobacco use] Onset: 07-11-2024 Episodic Screening and history of mental health and substance abuse codes (20 sources) Ex-tobacco chewer; Translations: [Personal history of nicotine dependence] Onset: 04-05-2023 10-13-2023 Episodic Skin and subcutaneous tissue infections (20 sources) Cellulitis of lower limb; Translations: [Cellulitis of left lower limb] Onset: 03-15-2022 Resolved: 02-25-2024 06-18-2019 Episodic Superficial injury; contusion (20 sources) Blister (nonthermal), right foot, initial encounter; Translations: [Seroma] Onset: 03-05-2022 Resolved: 11-29-2023 11-29-2023 Episodic Unclassified (4 sources) Ulcer of right heel and midfoot with fat layer exposed ([facility]) 10-03-2024 Unclassified (1 source) Low back pain, unspecified; Translations: [Low back pain, unspecified] Onset: 12-27-2024 Urinary tract infections (2 sources) Nonspecific urethritis; Translations: [Nonspecific urethritis] Onset: 10-17-2024 Episodic Results Test Name Value Interpretation Reference Range Facility Laboratory - Drug toxicology Ordered By: Jey Ramos on 02-13-2025 Amphetamines Ql (U) Negative [facility] Benzodiazepines Ql (U) Positive [facility] Cocaine Ql (U) Negative [facility] Opiates Ql (U) Negative [facility] Phencyclidine Ql (U) Negative [facility] No Panel InformationOrdered By: Jey Ramos on 02-13-2025 Urine Barbiturates Screen Negative [facility] Urine Marijuana (THC) Screen Positive [facility] ED Note-Physicianon 02-04-20 ED Note-Physician ED Note-Physician Basic Information Time Seen: Lewis FALCON, Star Wright 02/02/2025 18:13 Chief Complaint pt has neuropathy and is supposed to see pain management on the and states his 300 of lyrica is not working. History of Present Illness 55-year-old male reports to the emergency department with concerns of neuropathy pain in his legs. Reports he is a diabetic. He reports he is on Lyrica, manages by having worsening pain. Denies any new injury or wounds to his feet. Reports just need some for some relief at this time. He reports no other complaints. Reports history of poor kidney function as well. Reports frequently taking Lyrica at this time. Review of Systems No other aggravating or relieving factors no other associated symptoms no other prior treatments or complaints. Family: Reviewed and noncontributory Social: lives at home Review of systems negative unless otherwise specified in the HPI. Physical Exam Vitals & Measurements T: 36.7 ???C(Oral) HR: 96(Peripheral) RR: 18 BP: 208/74 SpO2: 97% HT: 187 cm WT: 135 kg BMI: 38.61 General: The patient appears well and in no apparent distress. Patient is resting comfortably in chair. Afebrile Skin: Warm, dry, no pallor noted. Head: Normocephalic, atraumatic Neck: No JVD Eye: PERRLA, EOMI ENT: Moist mucus membranes Cardiovascular: Regular rate. normal peripheral perfusion. Pedal pulses +2 bilaterally Respiratory: No respiratory distress. no accessory muscle use. no obvious audible wheezing Chest Wall: no deformity Musculoskeletal: normal ROM, no deformity, no swelling. no tenderness on palpation of feet. GI: No obvious distention Neurological: A&O. moves all extremities equal strength and symmetry Psychiatric: Cooperative and appropriate Medical Decision Making A 55-year-old male reports to the Emergency Department with concerns of flareup of his neuropathy pain. Reports he has diabetic neuropathy and having increasing pain in his feet. Denies any injury or trauma to this area. Is following up with pain management next week. Exam the patient is rather benign. His feet are neurovascularly intact. Due to concerns, I did give him pain medicine for breakthrough pain. Patient was happy with this. Discussed return precautions. Follow-up with your primary care provider in 3 to 5 days. If symptoms worsen, do not improve, or new symptoms arise please report back to emergency department for further evaluation. The patient was understanding and agreeable to plan moving forward. Assessment/Plan Neuropathic pain (M79.2: Neuralgia and neuritis, unspecified) Orders: acetaminophen-oxycodone , 1 tab(s), Tab, Oral, Once, Stop date 02/02/25 18:22:00 EDT, STAT, Start date 02/02/25 18:22:00 EDT acetaminophen-oxycodone , 1 tab(s), Oral, q6hr for pain for 3 day(s), 12 tab(s), Refill(s) 0, [id number], 187, cm, 02/02/25 18:12:00 EDT, Height/Length Dosing, 135, kg, 02/02/25 18:12:00 EDT, Weight Dosing Medications Administered Given acetaminophen-oxycodone 325 mg-5 mg Tab, 1 tab(s), Oral Disposition Plan Patient Discharge Condition Stable Discharge Disposition To home Discharge Prescription List Prescriptions acetaminophen-oxycodone 325 mg-5 mg Tab, 1 tab(s), Oral, q6hr, PRN Follow-up With When Contact Information IDANIA RICKETTS In 3 days 02/05/[address], [address] [place] [id number]- Business (1) Additional Instructions: Call Dr for diagnosis based follow up Patient Education Peripheral Neuropathy Acute Pain, Adult Neuropathic Pain Attestation Patient seen and evaluated by the physician business banking sales assistant. Attending physician was present in the emergency department and supervised care. This visit was performed by both the physician and an APC. I performed all aspects of the MDM as documented. This report was transcribed using voice recognition software. Every effort was made to ensure accuracy, however, inadvertently computerized recreational sports director mistakes may be present. Appropriate healthcare PPE was used in evaluating this patient. The patient was placed in a mask. The healthcare provider was wearing mask, gloves, and utilizing proper hand hygiene. All equipment was properly cleansed. I performed a substantive part of the MDM during the patient???s E/M visit. I personally made or approved the documented management plan and acknowledge its risk of complications. (Independent Interpretation) My (EKG/X-Ray/US/CT as applicable) interpretation as above. (Discussion) Management/test interpretation discussed with APC. Problem List/Past Medical History Ongoing No qualifying data Historical No qualifying data Medications Inpatient No active inpatient medications Home acetaminophen-oxycodone 325 mg-5 mg Tab, 1 tab(s), Oral, q6hr, PRN Allergies vancomycin (Hives) Social History Alcohol - Denies Alcohol Use, 02/02/2025 Substance Abuse - Denies Substance Abuse, 02/02/2025 Tobacco - Denies Tobacco Use, 01/06 (more content not included)... Normal [facility] Comment on above: Result Comment: Elec tronically Signed By: Star Saucedo PA-C\.br\Date and Time Signed: 02/02/25 18:41 EDT\.br\Electronically Co-Signed By: Delano Benavides DO\.br\Date and Time Co-Signed: 02/03/25 06:04 EDT Basic Metabolic Panelon 01-06 Est, Glom Filt Rate 9 Low - PINF [facility] Comment on above: These results are not intended for use [...] following therapy that affects renal tubular secretion. Interpretation and review of laboratory results Abnormal [facility] Urea nitrogen/Creatinine [Mass ratio] 10 mg/mg 9 - 20 [facility] Basic Metabolic Profon 02-02 Anion gap [Moles/Vol] 16 mmol/L Normal 9-16 [facility] Comment on above: Performed By: #### B MP #### [address] [place] [address] Hammer Runner: Meredith Nolen MD Calcium [Mass/Vol] 9.3 mg/dL Normal 8.6-10.4 [facility] Comment on above: Performed By: #### B MP #### [address] [place] [address] Hammer Runner: Meredith Nolen MD Chloride [Moles/Vol] 98 mmol/L Normal 98-107 [facility] Comment on above: Performed By: #### B MP #### [address] [place] [address] Hammer Runner: Meredith Nolen MD CO2 [Moles/Vol] 23 mmol/L Normal 20-31 [facility] Comment on above: Performed By: #### B MP #### [facility] [address] [place] [address] Hammer Runner: Meredith Nolen MD Creatinine [Mass/Vol] 7.0 mg/dL Critically high 0.70-1.20 [facility] Comment on above: Performed By: #### B MP #### [address] [place] [address] Hammer Runner: Meredith Nolen MD Glucose [Mass/Vol] 296 mg/dL High 74-99 [facility] Comment on above: Performed By: #### B MP #### [address] [place] [address] Hammer Runner: Meredith Nolen MD Potassium [Moles/Vol] 6.1 mmol/L Critically high 3.7-5.3 [facility] Comment on above: Specimen hemolysis h as exceeded the interference as defined by Yaima. Value may be falsely increased. Suggest recollection if clinically indicated. Result Comment: Spec imen hemolysis has exceeded the interference as defined by Yaima. Value may be falsely increased. Suggest recollection if clinically indicated. Performed By: #### B MP #### [address] [place] [address] Hammer Runner: Meredith Nolen MD Sodium [Moles/Vol] 137 mmol/L Normal 136-145 [facility] Comment on above: Performed By: #### B MP #### [address] [place] [address] Hammer Runner: Meredith Nolen MD Urea nitrogen [Mass/Vol] 69 mg/dL High 6-20 [facility] Comment on above: Performed By: #### B MP #### [address] [place], [place] [id number] Hammer Runner: Meredith Nolen MD BUN/CRE Ratio 10 Normal 9-[address] [facility] Comment on above: Performed By: #### B MP #### [facility] [address] [place], [place] [id number] Hammer Runner: Meredith Nolen MD GFR/1.73 sq M.predicted among non-blacks MDRD (S/P/Bld) [Vol rate/Area] 9 mL/min/{1.73_m2} Low >60 [facility] Comment on above: Result Comment: These results are not intended for [...] following therapy that affects renal tubular secretion. Performed By: #### B MP #### [facility] [address] [place], [place] [id number] Hammer Runner: Meredith Nolen MD CBC with Auto Differentialon 02-02-2025 Basophils (Bld) [#/Vol] 0.04 10*3/uL [facility] Basophils/100 WBC (Bld) 0 % 0 - 2 % [facility] Eosinophils (Bld) [#/Vol] 0.35 10*3/uL [facility] Eosinophils/100 WBC (Bld) 3 % 1 - 4 % [facility] Erythrocyte distribution width (RBC) [Ratio] 14.6 % High 11.8 - 14.4 % [facility] Hematocrit (Bld) [Volume fraction] 31.8 % Low 40.7 - 50.3 % [facility] Hemoglobin (Bld) [Mass/Vol] 10.4 g/dL Low 13.0 - 17.0 g/dL [facility] Immature granulocytes (Bld) [#/Vol] 0.13 10*3/uL [facility] Immature granulocytes/100 WBC (Bld) 1 % High 0 [facility] Interpretation and review of laboratory results Abnormal [facility] Lymphocytes/100 WBC (Bld) 13 % Low 24 - 43 % [facility] Lymphocytes/100 WBC (Bld) 1.35 % [facility] MCH (RBC) [Entitic mass] 31.3 pg 25.2 - 33.5 pg [facility] MCHC (RBC) [Mass/Vol] 32.7 g/dL 28.4 - 34.8 g/dL [facility] MCV (RBC) [Entitic vol] 95.8 fL 82.6 - 102.9 fL [facility] Monocytes/100 WBC (Bld) 7 % 3 - 12 % [facility] Monocytes/100 WBC (Bld) 0.76 % [facility] Neutrophils/100 WBC (Bld) 76 % High 36 - 65 % [facility] Nucleated RBC/100 WBC (Bld) [Ratio] 0 % 0.0 per 100 WBC [facility] Platelet mean volume (Bld) [Entitic vol] 10.1 fL 8.1 - 13.5 fL [facility] Platelets (Bld) [#/Vol] 208 10*3/uL [facility] RBC (Bld) [#/Vol] 3.32 10*6/uL Low 4.21 - 5.7 7 m/uL [facility] Segmented neutrophils/100 WBC (Bld) 7.75 % [facility] WBC other (Bld) [#/Vol] 10.4 [facility] CBC with Diffon 02-02-2025 Abs. Basophil 0.04 k/uL Normal 0.00-0.[address] [facility] Comment on above: Performed By: #### C PEE, REJEC #### [facility] [address] [place] [address] Hammer Runner: Meredith Nolen MD Abs.Imm.Granulocyte 0.13 k/uL Normal 0.00-0.30 [facility] Comment on above: Performed By: #### C DP, REJEC #### [address] [place], [place] [id number] Hammer Runner: Meredith Nolen MD Abs.Neutrophil (Seg) 7.75 k/uL Normal 1.50-8.10 [facility] Comment on above: Performed By: #### C DP, REJEC #### [address] [place], [facility] Hammer Runner: Meredith Nolen MD Basophils/100 WBC (Bld) 0 % Normal 0-2 [facility] Comment on above: Performed By: #### C DP, REJEC #### [address] [place] [address] Hammer Runner: Meredith Nolen MD Eosinophils (Bld) [#/Vol] 0.35 10*3/uL Normal 0.00-0.44 [facility] Comment on above: Performed By: #### C DP, REJEC #### [address] [place], [facility] Hammer Runner: Meredith Nolen MD Eosinophils/100 WBC (Bld) 3 % Normal 1-4 [facility] Comment on above: Performed By: #### C DP, REJEC #### [address] [place], [facility] Hammer Runner: Meredith Nolen MD Erythrocyte distribution width (RBC) [Ratio] 14.6 % High 11.8-14.4 [facility] Comment on above: Performed By: #### C DP, REJEC #### [address] [place], [facility] Hammer Runner: Meredith Nolen MD Hematocrit (Bld) [Volume fraction] 31.8 % Low 40.7-50.3 [facility] Comment on above: Performed By: #### C DP, REJEC #### [address] [place], [place] [id number] Hammer Runner: Meredith Nolen MD Hemoglobin (Bld) [Mass/Vol] 10.4 g/dL Low 13.0-17.0 [facility] Comment on above: Performed By: #### C DP, REJEC #### [address] [place], [place] [id number] Hammer Runner: Meredith Nolen MD Immature granulocytes/100 WBC (Bld) 1 % High 0 [facility] Comment on above: Performed By: #### C DP, REJEC #### [address] [place] [address] Hammer Runner: Meredith Nolen MD Lymphocytes (Bld) [#/Vol] 1.35 10*3/uL Normal 1.10-3.70 [facility] Comment on above: Performed By: #### C DP, REJEC #### [address] [place], [facility] Hammer Runner: Meredith Nolen MD Lymphocytes/100 WBC (Bld) 13 % Low 24-43 [facility] Comment on above: Performed By: #### C DP, REJEC #### [address] [place], [place] [id number] Hammer Runner: Meredith Nolen MD MCH (RBC) [Entitic mass] 31.3 pg Normal 25.2-33.5 [facility] Comment on above: Performed By: #### C DP, REJEC #### [address] [place], [place] [id number] Hammer Runner: Meredith Nolen MD MCHC (RBC) [Mass/Vol] 32.7 g/dL Normal 28.4-34.8 [facility] Comment on above: Performed By: #### C DP, REJEC #### [address] [place] [address] Hammer Runner: Meredith Nolen MD MCV (RBC) [Entitic vol] 95.8 fL Normal 82.6-102.9 [facility] Comment on above: Performed By: #### C DP, REJEC #### [facility] [address] [place] [address] Hammer Runner: Meredith Nolen MD Monocytes (Bld) [#/Vol] 0.76 10*3/uL Normal 0.10-1.20 [facility] Comment on above: Performed By: #### C DP, REJEC #### [facility] [address] [place] [address] Hammer Runner: Meredith Nolen MD Monocytes/100 WBC (Bld) 7 % Normal 3-12 [facility] Comment on above: Performed By: #### C DP, REJEC #### [address] [place], [facility]83 Hammer Runner: Meredith Nolen MD Neutrophil (Seg) 76 % High 36-65 [facility] Comment on above: Performed By: #### C DP, REJEC #### [address] [place], [place] [id number] Hammer Runner: Meredith Nolen MD NRBC Automated 0.0 per 100 WBC Normal 0.0 [facility] Comment on above: Performed By: #### C DP, REJEC #### [address] [place], [place] [id number] Hammer Runner: Meredith Nolen MD Platelet mean volume (Bld) [Entitic vol] 10.1 fL Normal 8.1-13.5 [facility] Comment on above: Performed By: #### C DP, REJEC #### [address] [place] [address] Hammer Runner: Meredith Nolen MD Platelets (Bld) [#/Vol] 208 10*3/uL Normal 138-453 [facility] Comment on above: Performed By: #### C DP, REJEC #### [facility] [address] [place], [place] [id number] Hammer Runner: Meredith Nolen MD RBC (Bld) [#/Vol] 3.32 10*6/uL Low 4.21-5.77 [facility] Comment on above: Performed By: #### C DP, REJEC #### [facility] [address] [place] [address] Hammer Runner: Meredith Nolen MD WBC (Bld) [#/Vol] 10.4 10*3/uL Normal 3.5-11.3 [facility] Comment on above: Performed By: #### C DP, REJEC #### [facility] [address] [place], [place] [id number] Hammer Runner: Meredith Nolen MD ED Clinical Summaryon 2024 ED Clinical Summary ED Clinical Summary [address] [address] ED Clinical Summary Person Information Name: EVANS FORTE Jr Kiana/[facility] Age: 55 Years : 1970 Sex: Male Language: Puerto [place] PCP: IDANIA RICKETTS DO Marital Status: Visit Id: Visit Reason: Foot pain-swelling; BILATERAL FOOT PAIN Speciality: Acuity: 4 Enc Type: Emergency Med Service: Emergency Arrival: 02/02/2025 18:02:34 Discharge: 02/02/2025 18:32:37 LOS: 000 00:30 Checkin: 02/02/2025 18:02:34 Checkout: 02/02/2025 18:32:37 Dispo Type: Home (Routine DC) EVENTS: Event Name Event Status Request Date/Time Start Date/Time Complete Date/Time Arrive Complete 02/02/2025 18:02:34 02/02/2025 18:02:34 02/02/2025 18:02:34 Document Home Meds Request 02/02/2025 18:02:34 Triage Complete 02/02/2025 18:02:34 02/02/2025 18:12:37 02/02/2025 18:12:37 Bed Assign Complete 02/02/2025 18:07:23 02/02/2025 18:07:23 02/02/2025 18:07:23 Dr Exam Complete 02/02/2025 18:07:23 02/02/2025 18:13:45 02/02/2025 18:13:45 RN Exam Complete 02/02/2025 18:07:23 02/02/2025 18:32:08 02/02/2025 18:32:08 Registration Complete 02/02/2025 18:13:45 02/02/2025 18:16:17 02/02/2025 18:16:17 Dr Exam Complete 02/02/2025 18:14:00 02/02/2025 18:14:00 02/02/2025 18:14:00 Reg Complete Request 02/02/2025 18:16:17 Reg Bed Request Complete 02/02/2025 18:16:17 02/02/2025 18:16:17 02/02/2025 18:16:17 Meds Admin Complete 02/02/2025 18:22:58 02/02/2025 18:32:09 Discharge Complete 02/02/2025 18:24:29 02/02/2025 18:32:45 02/02/2025 18:32:45 Transfer Complete 02/02/2025 18:32:45 02/02/2025 18:32:45 02/02/2025 18:32:45 ADDRESS: [address] [place] [id number] PHYS DOC NOTES: MEDICAL INFORMATION: Prescriptions Given: New Medications [id number], [address], [place] [id number], [phone] acetaminophen-oxycodone (acetaminophen-oxycodon e 325 mg-5 mg Tab) 1 Tablets By Mouth every 6 hours as needed for pain for 3 Days. Refills: 0. PATIENT EDUCATION INFORMATION: Instructions: Peripheral Neuropathy; Acute Pain, Adult; Neuropathic Pain Follow up: With: Address: When: IDANIA RICKETTS [address], [address] [place] [address] Business (1) In 3 days 02/05/2025 Comments: Call Dr for diagnosis based follow up DIAGNOSIS: Neuropathic pain Normal [facility] ED Patient Summaryon 025 ED Patient Summary ED Patient Summary [address] [address] Patient Discharge Instructions Person Information Name: JANN EVANS Age: 55 Years Arrival Date: 02/02/2025 18:02:34 Discharge Diagnosis: Neuropathic pain Primary Care Physician: IDANIA RICKETTS DO Provider Information Primary Provider: Delano Benavides DO Advanced Poacher Operator:Star Saucedo PA-C The exam and treatment you received in the Emergency Department were for an urgent problem and are not intended as complete care. It is important that you follow up with a doctor, nurse practitioner, or physician???s business banking sales assistant for ongoing care. If your symptoms become worse or you do not improve as expected and you are unable to reach your usual health care provider, you should return to the Emergency Department. We are available 24 hours a day. EVANS FORTE Jr has been given the following list of patient education materials, prescriptions and follow-up instructions: Follow-up Instructions: With: Address: When: IDANIA RICKETTS [address], [address] [place] [address] Business (1) In 3 days 02/05/2025 Comments: Call Dr for diagnosis based follow up In the event that this physician does not participate in your insurance network, please consult with your insurance company to find a nearby participating provider. Patient Education Materials: Peripheral Neuropathy; Acute Pain, Adult; Neuropathic Pain A MESSAGE TO ALL PATIENTS REGARDING OPIOIDS PRESCRIPTION OPIOIDS: WHAT YOU NEED TO KNOW Prescription opioids can be used to help relieve [id number] pain and are often prescribed following a surgery or injury, or for certain health conditions. These medications can be an important part of the treatment but also come with serious risks. It is important to work with your healthcare provider to make sure you are getting the safest, most effective care. WHAT ARE THE RISKS AND SIDE EFFECTS OF OPIOID USE? Prescription opioids carry serious risks of addiction and overdose, especially with prolonged use. An opioid overdose, often marked by slowed breathing, can cause sudden . The use of prescription opioids can have a number of side effects as well, even when taken as directed: ??? Tolerance???meaning you might need to take more of the medication for the same pain relief ??? Physical dependence???meaning you have symptoms of withdrawal when a medication is stopped ??? Increased sensitivity to pain ??? Constipation ??? Nausea, vomiting, and dry mouth ??? Sleepiness and dizziness ??? Confusion ??? Depression ??? Low levels of testosterone that can result in lower sex drive, energy, and strength ??? Itching and sweating RISKS ARE GREATER WITH: ??? History of drug misuse, substance use disorder, or overdose ??? Mental health conditions (such as depression or anxiety) ??? Sleep apnea ??? Older age (65 years and older) ??? Avoid alcohol while taking prescription opioids. Also, unless specifically advised by your health care provider, medications to avoid include: ??? Benzodiazepines (such as Xanax or Valium) ??? Muscle relaxants (such as Soma or Flexeril) ??? Hypnotics (such as Ambien or Lunesta) ??? Other prescription opioids KNOW YOUR OPTIONS Talk to your health care provider about ways to manage your pain that don???t involve prescription opioids. Some of these options may actually work better and have fewer risks and side effects. Options may include: ??? Pain relievers such as acetaminophen, ibuprofen, and naproxen ??? Some medication that are also used for depression or seizures ??? Physical therapy and exercise ??? Cognitive behavioral therapy, a psychological, goal-directed approach, in which patients learn how to modify physical, behavioral, and emotional triggers of pain and stress. IF YOU ARE PRESCRIBED OPIOIDS FOR PAIN: ??? Never take opioids in greater amounts or more often than prescribed. ??? Follow up with your primary health care provider. o Work together to create a plan on how to manage your pain. o Talk about ways to help manage your pain that don???t involve prescription opioids. o Talk about any and all concerns and side effects. ??? Help prevent misuse and abuse o Never sell or share prescription opioids. o Never use another person???s prescription opioids. ??? Store prescription opioids in a secure place and out of reach of others (this may include visitors, children, friends, and family). ??? Safely dispose of unused prescription opioids: Find your community drug take-back program or your pharmacy mail-back program, or flush them down the toilet, following guidance from the Food and Drug Administration (www.fda.gov/Drugs/Reso AmandaYou). ??? Visit www.cdc.gov/drugoverdos e to learn about the risks of opioids abuse and over (more content not included)... Normal [facility] Specimen Rejectionon 025 Reason for rejection Unable to perform testing: Specimen hemolyzed. [facility] Comment on above: Performed By: #### C DP, REJEC #### [facility] [address] [place] [address] Hammer Runner: Meredith Nolen MD Source of sample .BLOOD Normal [facility] Comment on above: Performed By: #### C DP, REJEC #### [facility] [address] [place] [address] Hammer Runner: Meredith Nolen MD Test ordered BMP [facility] Comment on above: Performed By: #### C DP, REJEC #### [facility] [address] [place] [address] Hammer Runner: Meredith Nolen MD XR FOOT RIGHT (MIN 3 VIEWS)o n 02-02-2025 XR FOOT RIGHT (MIN 3 VIEWS) EXAMINATION: THREE XRAY VIEWS OF THE RIGHT [...] 2. No radiographic evidence of acute osteomyelitis. Interpreted by: Tami Concepcion MD Signed by: Tami Concepcion MD 02/02/25 Final result [facility] XR Foot - right 3 Viewson 1. Soft tissue ulceration along the plantar aspect of the posterior heel. 2. No radiographic evidence of acute osteomyelitis. [facility] EXAMINATION: THREE XRAY VIEWS OF THE RIGHT [...] posterior heel. No evidence of osseous erosions. [facility] Tami Concepcion MD - 02/02/2025 EXAMINATION: THREE [...] 2. No radiographic evidence of acute osteomyelitis. [facility] Radiology Study observation (narrative) [facility] XR Foot - right 3 ViewsOrder ed By: Tami Concepcion on 02-02-2025 [facility] Work Phone: 36on 01-15-2025 36 Contacted patient regarding pamela MOEM to contact clinic. [facility] 36on 01-02-2025 36 Please advise on nex t step. Medicare will not cover Nucynta for his diagnosis. [facility] 36 Patient asking if he can get some pain meds ordered since his SCS trial today was canceled due to not being approved. Nucynta was not approved by his insurance. Patient aware we will contact him after hearing back from provider. Thanks [facility] Orders Onlyon 01-02-2025 Orders Only [id number] Evans Forte 1970 M Date Provider Department Center 01/02/2025 170-YOLIE MYRICK PAIN [facility] Family History Problem Relation [...] Sister Maternal Grandmother Daughter Father's Brother Alive [facility] Telephoneon 01-02-2025 Telephone [id number] Evans Forte 1970 M Date Provider Department Center 01/02/2025 [id number] CHIN PAIN [facility] Family History Problem Relation Age of Onset [...] Sister Maternal Grandmother Daughter Father's Brother Alive [facility] Alanine aminotransferase [En zymatic activity/volume] in Serum or PlasmaOrdered By: Ivana Salcedo on 01-01-2025 ALT [Catalytic activity/Vol] Alanine aminotransferase [Enzymatic activity/volume] in Serum or Plasma [address] [place] [address] ALT [Catalytic activity/Vol] 28 U/L Normal [address] [place] [address] Comment on above: Performed By: #### C BC, CMP #### [address] Albumin [Mass/volume] in Ser um or Plasma by Bromocresol green (BCG) dye binding methoOrdered By: Ivana Salcedo on 01-01-2025 Albumin BCG dye [Mass/Vol] Albumin [Mass/volume] in Serum or Plasma by Bromocresol green (BCG) dye binding metho 3.5-5.7 [facility] Albumin BCG dye [Mass/Vol] 4.4 g/dL 3.5-5.7 [facility] Alkaline phosphatase [Enzyma tic activity/volume] in Serum or PlasmaOrdered By: Ivana Salcedo on 01-01-2025 ALP [Catalytic activity/Vol] Alkaline phosphatase [Enzymatic activity/volume] in Serum or Plasma 34-104 [facility] ALP [Catalytic activity/Vol] 88 U/L Normal 34-104 [facility] Comment on above: Performed By: #### C BC, CMP #### [facility] [address] Aspartate aminotransferase [ Enzymatic activity/volume] in Serum or PlasmaOrdered By: Ivana Salcedo on 01-01-2025 AST [Catalytic activity/Vol] Aspartate aminotransferase [Enzymatic activity/volume] in Serum or Plasma Low 13-39 [facility] AST [Catalytic activity/Vol] 10 U/L Low 13-39 [facility] Comment on above: Performed By: #### C BC, CMP #### [facility] [address] [place] [address] [place] Basophils Auto (Bld) [#/Vol] Ordered By: Ivana Salcedo on 01-01-2025 Basophils (Bld) [#/Vol] Automated basophil count 0.0-0.2 [facility] Basophils [#/volume] in Bloo d by Automated countOrdered By: Ivana Salcedo on 01-01-2025 Basophils (Bld) [#/Vol] 0.1 10*3/uL Normal 0.0-0.2 [facility] Comment on above: Result Comment: PERF ORMED BY: [place] [address] PATHOLOGIST SHIRRING TENDER KIM ELLIOTT M.D. Performed By: #### C BC, CMP #### [facility] [address] [place] [address] [place] Basophils/100 WBC Auto (Bld) Ordered By: Ivana Salcedo on 01-01-2025 Basophils/100 WBC (Bld) Automated basophil % . [facility] Basophils/100 leukocytes in Blood by Automated countOrdered By: Ivana Salcedo on 01-01-2025 Basophils/100 WBC (Bld) 0.8 % Normal . [facility] Comment on above: Performed By: #### C BC, CMP #### [facility] [address] Bilirubin.total [Mass/volume ] in Serum or PlasmaOrdered By: Ivana Salcedo on 01-01-2025 Bilirubin [Mass/Vol] Bilirubin.total [Mass/volume] in Serum or Plasma 0.3-1.0 [facility] Bilirubin [Mass/Vol] 0.5 mg/dL Normal 0.3-1.[address] [facility] Comment on above: Performed By: #### C BC, CMP #### [facility] [address] [place] [address] COVID Cepheid NegativeOrdere d By: Ivana Salcedo on 01-01-2025 SARS-CoV-2 (COVID-19) Ab IA Ql COVID Cepheid Negative [facility] Comment on above: This is a duplicate Cepheid Xpert Xpress CoV-2/Flu/RSV Plus RNA by RT-PCR result to be used for statistical tracking purpose only. SARS-CoV-2 (COVID-19) Ab IA Ql Negative Negative [facility] Comment on above: This is a duplicate Cepheid Xpert Xpress CoV-2/Flu/RSV Plus RNA by RT-PCR result to be used for statistical tracking purpose only. COVID-19 / Flu A/B / RSV PCR on 01-01-2025 SARS-CoV-2 (COVID-19) RNA SHAY+probe Ql (Unsp spec) COVID-19 Cepheid Result Negative for SARS-CoV-2 RNA by RT-PCR Flu A Cepheid Result Negative for Flu A RNA by RT-PCR Flu B Cepheid Result Negative for Flu B RNA by RT-PCR RSV Cepheid Result Negative for RSV RNA by RT-PCR COVID19 Blank Space -------- Reference: Negative COVID19 Blank Space -------- Cepheid Disclaimer The Cepheid Xpert Xpress CoV-2/Flu/RSV Plus has Cepheid Disclaimer not been FDA cleared or approved; this test has Cepheid Disclaimer been authorized by FDA under an EUA for use by Cepheid Disclaimer authorized laboratories; this test has been Cepheid Disclaimer authorized only for the simultaneous qualitative Cepheid Disclaimer detection and differentiation of nucleic acids from Cepheid Disclaimer SARS-CoV-2, influenza A, influenza B, and Cepheid Disclaimer respiratory syncytial virus (RSV), and not for any Cepheid Disclaimer other viruses or pathogens; and this test is only Cepheid Disclaimer authorized for the duration of the declaration that Cepheid Disclaimer circumstances exist justifying the authorization of Cepheid Disclaimer emergency use of in vitro diagnostic tests for Cepheid Disclaimer detection and/or diagnosis of COVID-19 under Cepheid Disclaimer Section 564(b)(1) of the Act, 21 U.S.C. 360bbb- Cepheid Disclaimer 3(b)(1), unless the authorization is terminated or Cepheid Disclaimer revoked sooner. PERFORMED BY: [facility] [address] [place] [address] PATHOLOGIST SHIRRING TENDER KIM ELLIOTT M.D. Normal The Count Includes [facility] Comment on above: Performed By: #### C OVID19 FLU RSV, CEPHEID NEG #### [facility] [address] Calcium [Mass/volume] in Ser um or PlasmaOrdered By: Ivana Salcedo on 01-01-2025 Calcium [Mass/Vol] Calcium [Mass/volume ] in Serum or Plasma 8.6-10.3 [facility] Calcium [Mass/Vol] 9.2 mg/dL Normal 8.6-10.3 [facility] Comment on above: Performed By: #### C BC, CMP #### [address] Carbon dioxide, total [Moles /volume] in Serum or PlasmaOrdered By: Ivana Salcedo on 01-01-2025 CO2 [Moles/Vol] Carbon dioxide, tota l [Moles/volume] in Serum or Plasma 21.0-31.0 [facility] CO2 [Moles/Vol] 27.1 mmol/L Normal 21.0-31.0 [facility] Comment on above: Performed By: #### C BC, CMP #### [address] Cepheid COVID PCR Negativeon 01-01-2025 SARS-CoV-2 (COVID-19) RNA SHAY+probe Ql (Unsp spec) Negative Normal Negative The Count Includes [facility] Comment on above: Result Comment: This is a duplicate Cepheid Xpert Xpress CoV-2/Flu/RSV Plus RNA by RT-PCR result to be used for statistical tracking purpose only. PERFORMED BY: [place] [address] PATHOLOGIST SHIRRING TENDER KIM ELLIOTT M.D. Performed By: #### C OVID19 FLU RSV, CEPHEID NEG #### [address] Chloride [Moles/volume] in S james or PlasmaOrdered By: Ivana Salcedo on 01-01-2025 Chloride [Moles/Vol] Chloride [Moles/vol ume] in Serum or Plasma 98-107 [facility] Chloride [Moles/Vol] 99 mmol/L Normal 98-[address] [facility] Comment on above: Performed By: #### C BC, CMP #### [address] Complete Blood Count Auto Di ffon 01-01-2025 Mean Corpuscular HGB Conc 34.3 g/dL Normal 32.5-35.6 The Count Includes [facility] Comment on above: Performed By: #### C BC, CMP #### [address] Monocytes/100 WBC (Bld) 16.78 % Normal 0.00-20.00 The Count Includes [facility] Comment on above: Performed By: #### C BC, CMP #### [address] NRBC% 0.0 /100{WBC} Normal 0-0.5 [facility] Comment on above: Performed By: #### C BC, CMP #### [address] Comprehensive Metabolic Pane nick 01-01-2025 Albumin [Mass/Vol] 4.4 g/dL Normal 3.5-5.7 [facility] Comment on above: Performed By: #### C BC, CMP #### [address] Creatinine Clr Calc Pharmacy 20.53 Normal The Count Includes [facility] Comment on above: Result Comment: PERF ORMED BY: [place] [address] PATHOLOGIST SHIRRING TENDER KIM ELLIOTT M.D. Performed By: #### C BC, CMP #### [address] Estimated GFR 9.886 mL/Min Normal [facility] Comment on above: Performed By: #### C BC, CMP #### [address] Creatinine [Mass/volume] in Serum or PlasmaOrdered By: Ivana Salcedo on 01-01-2025 Creatinine [Mass/Vol] Creatinine [Mass/volume] in Serum or Plasma High 0.70-1.30 [facility] Creatinine [Mass/Vol] 6.30 mg/dL High 0.70-1.30 [facility] Comment on above: Performed By: #### C BC, CMP #### [address] D-Dimer High Sensitivityon 0 01-01-2025 D-Dimer High Sensitivity <200 Normal 0-243 The Count Includes [facility] Comment on above: Result Comment: The reference range for D-dimer is <243 ng/mL D-dimer units. D-dimer results must be used in conjunction with a clinical pretest probability (PTP) assessment model for deep vein thrombosis (DVT) and pulmonary embolism (PE). Results <230 ng/mL d-dimer units can be used as a negative predictor in patients with low or moderate probability for DVT/PE. Results above the exclusion threshold of 230 ng/ml D-dimer units for DVT/PE may indicate the need for further diagnostic testing. D-Dimer can be increased in hospitalized patients due to co-morbid conditions. A hematocrit value greater than 55% may lead to inaccurate results in coagulation testing. Patients having hematocrit values >55% require a special collection tube for coagulation studies. Please contact the laboratory at [phone] for redraw instructions. PERFORMED BY: [place] [address] PATHOLOGIST SHIRRING TENDER KIM ELLIOTT M.D. Performed By: #### H S TROP, DDIMER #### [address] ECG 12 lead ECGon 01-01-2025 ECG 12 lead ECG [facility] [place] [address] Electrocardiograph Report Signed Patient: Evans Forte MR#: [id number] : 1970 Acct:[id number] Age/Sex: 54 / M ADM Date: 01/01/25 Loc: ER Room: Type: [facility] ER Attending Dr: Ordering Provider: Ivana Salcedo DO Date of Service: 01/01/25 ECG/ECG 12 lead ECG: Nausea/Vomiting/Diarrhe a Copies to: Test Reason : Blood Pressure : */* mmHG Vent. Rate : 66 BPM Atrial Rate : 66 BPM P-R Int : 152 ms QRS Dur : 96 ms QT Int : 420 ms P-R-T Axes : 67 31 91 degrees QTcB Int : 440 ms Normal sinus rhythm t wave inversion avl Confirmed by Jessica Al MD ([id number]) on 01/02/2025 7:26:58 AM Referred By: Electronically Signed By: Jessica Al MD Transcribed By: MUS Signed By Jessica Al MD 12/06 05/31 0727 Normal The Count Includes [facility] Eosinophils Auto (Bld) [#/Vo l]Ordered By: Ivana Salcedo on 01-01-2025 Eosinophils (Bld) [#/Vol] Automated eosinophil count 0.0-0.45 [facility] Eosinophils [#/volume] in Bl ood by Automated countOrdered By: Ivana Salcedo on 01-01-2025 Eosinophils (Bld) [#/Vol] 0.2 10*3/uL Normal 0.0-0.45 [facility] Comment on above: Performed By: #### C PABLO, CMP #### [facility] [address] [place] [address] Eosinophils/100 WBC Auto (Bl d)Ordered By: Ivana Salcedo on 01-01-2025 Eosinophils/100 WBC (Bld) Automated eosinophil % . [facility] Eosinophils/100 leukocytes i n Blood by Automated countOrdered By: Ivana Salcedo on 01-01-2025 Eosinophils/100 WBC (Bld) 2.1 % Normal . [facility] Comment on above: Performed By: #### C BC, CMP #### [facility] [address] [place] [address] Erythrocyte distribution wid th Auto (RBC) [Ratio]Ordered By: Ivana Salcedo on 01-01-2025 Erythrocyte distribution width (RBC) [Ratio] Erythrocyte distribution width [Ratio] by Automated count High 12.0-14.8 [facility] Erythrocyte distribution wid th [Ratio] by Automated countOrdered By: Ivana Salcedo on 01-01-2025 Erythrocyte distribution width (RBC) [Ratio] 15.7 % High 12.0-14.8 [facility] Comment on above: Performed By: #### C BC, CMP #### [place] [address] [place] Erythrocytes [#/volume] in B lood by Automated countOrdered By: Ivana Salcedo on 01-01-2025 RBC (Bld) [#/Vol] 3.84 10*6/uL Low 3.90-5.60 [facility] Comment on above: Performed By: #### C BC, CMP #### [facility] [address] [place] [id number] [facility] Fibrin D-dimer [Presence] in Platelet poor plasma by Latex agglutinationOrdered By: Ivana Salcedo on 01-01-2025 Fibrin D-dimer LA Ql (PPP) Fibrin D-dimer [Presence] in Platelet poor plasma by Latex agglutination 0-243 [facility] Comment on above: The reference range for D-dimer is <243 ng/mL D-dimer units.D-dimer results must be used in conjunction with a clinicalpretest probability (PTP) assessment model for deep veinthrombosis (DVT) and pulmonary embolism (PE). Results <230ng/mL d-dimer units can be used as a negative predictor inpatients with low or moderate probability for DVT/PE.Results above the exclusion threshold of 230 ng/ml D-dimerunits for DVT/PE may indicate the need for furtherdiagnostic testing.D-Dimer can be increased in hospitalized patients due toco-morbid conditions.A hematocrit value greater than 55% may lead to inaccurate results in coagulation testing. Patients having hematocrit values >55% require a special collection tube for coagulation studies. Please contact the laboratory at [phone] for redraw instructions. Fibrin D-dimer LA Ql (PPP) < 200 ng/mL 0-243 [facility] Comment on above: The reference range for D-dimer is <243 ng/mL D-dimer units.D-dimer results must be used in conjunction with a clinicalpretest probability (PTP) assessment model for deep veinthrombosis (DVT) and pulmonary embolism (PE). Results <230ng/mL d-dimer units can be used as a negative predictor inpatients with low or moderate probability for DVT/PE.Results above the exclusion threshold of 230 ng/ml D-dimerunits for DVT/PE may indicate the need for furtherdiagnostic testing.D-Dimer can be increased in hospitalized patients due toco-morbid conditions.A hematocrit value greater than 55% may lead to inaccurate results in coagulation testing. Patients having hematocrit values >55% require a special collection tube for coagulation studies. Please contact the laboratory at [phone] for redraw instructions. Globulin Calc (S) [Mass/Vol] Ordered By: Ivana Salcedo on 01-01-2025 Globulin (S) [Mass/Vol] Serum globulin measurement by calculation (mass/volume) [facility] Glucose [Mass/volume] in Ser um or PlasmaOrdered By: Ivana Salcedo on 01-01-2025 Glucose [Mass/Vol] Glucose [Mass/volume ] in Serum or Plasma High 70-100 [facility] Comment on above: ADA recommended refe rence rangeRandom Glucose Reference Range is dependent on time and content of last meal. Glucose of more than 200 mg/dL in a nonstressed, ambulatory subject supports the diagnosis of Diabetes Mellitus. Glucose [Mass/Vol] 185 mg/dL High 70-100 [facility] Comment on above: ADA recommended refe rence rangeRandom Glucose Reference Range is dependent on time and content of last meal. Glucose of more than 200 mg/dL in a nonstressed, ambulatory subject supports the diagnosis of Diabetes Mellitus. Result Comment: [place] om Glucose Reference Range is dependent on time and content of last meal. Glucose of more than 200 mg/dL in a nonstressed, ambulatory subject supports the diagnosis of Diabetes Mellitus. ADA recommended reference range Performed By: #### C BC, CMP #### [facility] [address] [place] [address] Hematocrit Auto (Bld) [Volum e fraction]Ordered By: Ivana Salcedo on 01-01-2025 Hematocrit (Bld) [Volume fraction] Hematocrit [Volume Fraction] of Blood by Automated count Low 38.8-50.0 [facility] Hematocrit [Volume Fraction] of Blood by Automated countOrdered By: Ivana Salcedo on 01-01-2025 Hematocrit (Bld) [Volume fraction] 35.0 % Low 38.8-50.0 [facility] Comment on above: Performed By: #### C BC, CMP #### [address] Hemoglobin [Mass/volume] in BloodOrdered By: Ivana Salcedo on 01-01-2025 Hemoglobin (Bld) [Mass/Vol] Hemoglobin [Mass/volume] in Blood Low 13.0-17.0 [facility] Hemoglobin (Bld) [Mass/Vol] 12.0 g/dL Low 13.0-17.0 [facility] Comment on above: Performed By: #### C BC, CMP #### [facility] [address] [place] [address] Leukocytes [#/volume] correc scott for nucleated erythrocytes in Blood by Automated counOrdered By: Ivana Salcedo on 01-01-2025 WBC corrected for nucl RBC Auto (Bld) [#/Vol] Leukocytes [#/volume] corrected for nucleated erythrocytes in Blood by Automated coun 4.1-10.5 [facility] WBC corrected for nucl RBC Auto (Bld) [#/Vol] 9.3 10*3/uL 4.1-10.5 [facility] Leukocytes [#/volume] in Blo od by Automated countOrdered By: Ivana Salcedo on 01-01-2025 WBC (Bld) [#/Vol] 9.3 10*3/uL Normal 4.1-10.5 [facility] Comment on above: Performed By: #### C PABLO, CMP #### [address] Lymphocytes Auto (Bld) [#/Vo l]Ordered By: Ivana Salcedo on 01-01-2025 Lymphocytes (Bld) [#/Vol] Lymphocytes [#/volume] in Blood by Automated count 1.00-4.8 [facility] Lymphocytes [#/volume] in Bl ood by Automated countOrdered By: Ivana Salcedo on 01-01-2025 Lymphocytes (Bld) [#/Vol] 1.4 10*3/uL Normal 1.00-4.8 [facility] Comment on above: Performed By: #### C BC, CMP #### [facility] [address] [place] [address] Lymphocytes/100 WBC Auto (Bl d)Ordered By: Ivana Salcedo on 01-01-2025 Lymphocytes/100 WBC (Bld) Lymphocytes/100 leukocytes in Blood by Automated count . [facility] Lymphocytes/100 leukocytes i n Blood by Automated countOrdered By: Ivana Salcedo on 01-01-2025 Lymphocytes/100 WBC (Bld) 14.7 % Normal . [facility] Comment on above: Performed By: #### C BC, CMP #### [facility] [address] MCH Auto (RBC) [Entitic mass ]Ordered By: Ivana Salcedo on 01-01-2025 MCH (RBC) [Entitic mass] MCH [Entitic mass] by Automated count 27.5-35.2 [facility] MCH [Entitic mass] by Automa scott countOrdered By: Ivana Salcedo on 01-01-2025 MCH (RBC) [Entitic mass] 31.3 pg Normal 27.5-35.2 [facility] Comment on above: Performed By: #### C BC, CMP #### [address] MCHC Auto (RBC) [Mass/Vol]Or dered By: Ivana Salcedo on 01-01-2025 MCHC (RBC) [Mass/Vol] MCHC [Mass/volume] by Automated count 32.5-35.6 [facility] MCHC (RBC) [Mass/Vol] 34.3 g/dL 32.5-35.6 [facility] MCV Auto (RBC) [Entitic vol] Ordered By: Ivana Salcedo on 01-01-2025 MCV (RBC) [Entitic vol] MCV [Entitic volume] by Automated count 83.5-101 [facility] MCV [Entitic volume] by Auto mated countOrdered By: Ivana Salcedo on 01-01-2025 MCV (RBC) [Entitic vol] 91.2 fL Normal 83.5-101 [facility] Comment on above: Performed By: #### C BC, CMP #### [facility] [address] Monocyte distribution width [Entitic volume] in Blood by AutomatedOrdered By: Ivana Salcedo on 01-01-2025 Monocyte distribution width Auto (Bld) [Entitic vol] Monocyte distribution width [Entitic volume] in Blood by Automated 0.00-20.00 [facility] Monocyte distribution width Auto (Bld) [Entitic vol] 16.78 % 0.00-20.00 [facility] Monocytes Auto (Bld) [#/Vol] Ordered By: Ivana Salcedo on 01-01-2025 Monocytes (Bld) [#/Vol] Automated blood monocyte count 0.0-0.8 [facility] Monocytes [#/volume] in Bloo d by Automated countOrdered By: Ivana Salcedo on 01-01-2025 Monocytes (Bld) [#/Vol] 0.8 10*3/uL Normal 0.0-0.8 [facility] Comment on above: Performed By: #### C BC, CMP #### [facility] [address] Monocytes/100 WBC Auto (Bld) Ordered By: Ivana Salcedo on 01-01-2025 Monocytes/100 WBC (Bld) Automated monocyte % . [facility] Monocytes/100 leukocytes in Blood by Automated countOrdered By: Ivana Salcedo on 01-01-2025 Monocytes/100 WBC (Bld) 8.8 % Normal . [facility] Comment on above: Performed By: #### C BC, CMP #### [facility] [address] [place] [address] [place] Neutrophils Auto (Bld) [#/Vo l]Ordered By: Ivana Salcedo on 01-01-2025 Neutrophils (Bld) [#/Vol] Neutrophils [#/volume] in Blood by Automated count 1.8-7.7 [facility] Neutrophils [#/volume] in Bl ood by Automated countOrdered By: Ivana Salcedo on 01-01-2025 Neutrophils (Bld) [#/Vol] 6.9 10*3/uL Normal 1.8-7.7 [facility] Comment on above: Performed By: #### C BC, CMP #### [facility] [address] [place] [address] Neutrophils/100 WBC Auto (Bl d)Ordered By: Ivana Salcedo on 01-01-2025 Neutrophils/100 WBC (Bld) Automated neutrophil % . [facility] Neutrophils/100 leukocytes i n Blood by Automated countOrdered By: Ivana Salcedo on 01-01-2025 Neutrophils/100 WBC (Bld) 73.6 % Normal . [facility] Comment on above: Performed By: #### C BC, CMP #### [address] No Panel InformationOrdered By: Ivana Salcedo on 01-01-2025 Estimated GFR (CKD-EPI) 9.886 mL/Min [facility] Creatinine Clearance (Chem 20.53 [facility] Nucleated erythrocytes [Pres ence] in Blood by Automated countOrdered By: Ivana Salcedo on 01-01-2025 Nucleated RBC Auto Ql (Bld) Nucleated erythrocytes [Presence] in Blood by Automated count 0-0.5 [facility] Nucleated RBC Auto Ql (Bld) 0.0 /100{WBC} 0-0.5 [facility] Platelet mean volume Auto (B ld) [Entitic vol]Ordered By: Ivana Salcedo on 01-01-2025 Platelet mean volume (Bld) [Entitic vol] Platelet mean volume [Entitic volume] in Blood by Automated count 6.6-10.1 [facility] Platelet mean volume [Entiti c volume] in Blood by Automated countOrdered By: Ivana Salcedo on 01-01-2025 Platelet mean volume (Bld) [Entitic vol] 7.4 fL Normal 6.6-10.1 [facility] Comment on above: Performed By: #### C BC, CMP #### [facility] [address] [place] [address] Platelets Auto (Bld) [#/Vol] Ordered By: Ivana Salcedo on 01-01-2025 Platelets (Bld) [#/Vol] Platelets [#/volume] in Blood by Automated count 150-450 [facility] Platelets [#/volume] in Bloo d by Automated countOrdered By: Ivana Salcedo on 01-01-2025 Platelets (Bld) [#/Vol] 304 10*3/uL Normal 150-450 [facility] Comment on above: Performed By: #### C BC, CMP #### [address] [address] [place] Potassium [Moles/volume] in Serum or PlasmaOrdered By: Ivana Salcedo on 01-01-2025 Potassium [Moles/Vol] Potassium [Moles/volume] in Serum or Plasma 3.5-5.1 [facility] Potassium [Moles/Vol] 4.8 mmol/L Normal 3.5-5.1 [facility] Comment on above: Performed By: #### C BC, CMP #### [facility] [address] [place] [address] Protein [Mass/volume] in Ser um or PlasmaOrdered By: Ivana Salcedo on 01-01-2025 Protein [Mass/Vol] Protein [Mass/volume ] in Serum or Plasma 6.4-8.9 [facility] Protein [Mass/Vol] 8.4 g/dL Normal 6.4-8.9 [facility] Comment on above: Performed By: #### C BC, CMP #### [facility] [address] [place] [address] RBC Auto (Bld) [#/Vol]Ordere d By: Ivana Salcedo on 01-01-2025 RBC (Bld) [#/Vol] Erythrocytes [#/volu me] in Blood by Automated count Low 3.90-5.60 [facility] Respiratory specimen influen za A virus, influenza B virus, respiratory syncytical virOrdered By: Ivana Salcedo on 01-01-2025 SARS-CoV-2 (COVID-19) RNA SHAY+probe Ql (Unsp spec) Respiratory specimen influenza A virus, influenza B virus, respiratory syncytical vir [facility] SARS-CoV-2 (COVID-19) RNA SHAY+probe Ql (Unsp spec) [facility] Serum globulin measurement b y calculation (mass/volume)Ordered By: Ivana Salcedo on 01-01-2025 Globulin (S) [Mass/Vol] 4.0 g/dL Normal [facility] Comment on above: Performed By: #### C BC, CMP #### [facility] [address] [place] [address] Serum or plasma albumin/glob ulin mass ratioOrdered By: Ivana Salcedo on 01-01-2025 Albumin/Globulin [Mass ratio] Serum or plasma albumin/globulin mass ratio [facility] Albumin/Globulin [Mass ratio] 1.1 {ratio} Normal [facility] Comment on above: Performed By: #### C BC, CMP #### [address] Serum or plasma anion gap de terminationOrdered By: Ivana Salcedo on 01-01-2025 Anion gap [Moles/Vol] Serum or plasma an ion gap determination High 6.0-15.0 [facility] Anion gap [Moles/Vol] 15.7 mmol/L High 6.0-15.0 [facility] Comment on above: Performed By: #### C BC, CMP #### [address] Sodium [Moles/volume] in Ser um or PlasmaOrdered By: Ivana Salcedo on 01-01-2025 Sodium [Moles/Vol] Sodium [Moles/volume ] in Serum or Plasma 136-145 [facility] Sodium [Moles/Vol] 137 mmol/L Normal 136-145 [facility] Comment on above: Performed By: #### C BC, CMP #### [address] Troponin I High Sensitivityo n 01-01-2025 Troponin I High Sensitivity 12 Normal 0-20 The Count Includes [facility] Comment on above: Result Comment: The Troponin units of report have been changed to meet the Chest Pain Accreditation requirement, element EC5.M1l2. Troponin units are changed from pg/ml to ng/L. Also, the decimal is removed and results are in whole numbers. PERFORMED BY: [place] [address] PATHOLOGIST SHIRRING TENDER KIM ELLIOTT M.D. Performed By: #### H S TROP, DDIMER #### [address] Troponin I.cardiac [Mass/vol ume] in Serum or Plasma by Detection limit <= 0.01 ng/Ordered By: Ivana Salcedo on 01-01-2025 Troponin I.cardiac DL <= 0.01 ng/mL [Mass/Vol] Troponin I.cardiac [Mass/volume] in Serum or Plasma by Detection limit <= 0.01 ng/ 0-20 [facility] Comment on above: The Troponin units o f report have been changed to meet the Chest Pain Accreditation requirement, element EC5.M1l2. Troponin units are changed from pg/ml to ng/L. Also, the decimal is removed and results are in whole numbers. Troponin I.cardiac [Mass/vol ume] in Serum or Plasma by Detection limit <= 0.01 ng/mLOrdered By: Ivana Salcedo on 01-01-2025 Troponin I.cardiac DL <= 0.01 ng/mL [Mass/Vol] 12 ng/L [facility] Comment on above: The Troponin units o f report have been changed to meet the Chest Pain Accreditation requirement, element EC5.M1l2. Troponin units are changed from pg/ml to ng/L. Also, the decimal is removed and results are in whole numbers. Urea nitrogen [Mass/volume] in Serum or PlasmaOrdered By: Ivana Salcedo on 01-01-2025 Urea nitrogen [Mass/Vol] Urea nitrogen [Mass/volume] in Serum or Plasma [facility] 03-30 [facility] Urea nitrogen [Mass/Vol] 69 mg/dL [facility] 03-30 [facility] Comment on above: Performed By: #### C BC, CMP #### [facility] [address] WBC Auto (Bld) [#/Vol]Ordere d By: Ivana Salcedo on 01-01-2025 WBC (Bld) [#/Vol] Leukocytes [#/volume ] in Blood by Automated count 4.1-10.5 [facility] BLOOD UREA NITROGENon 2024 Urea nitrogen [Mass/Vol] 58 mg/dL [facility] 01-26 [facility] Comment on above: Performed By: #### 3 094-0 #### [facility] ([id number]) [address] [place] [address], [address] [place] [address] Urea nitrogen [Mass/Vol] 112 mg/dL High 5-23 [facility] Comment on above: Performed By: #### 3 094-0 #### [facility] ([id number]) [address], [address] [place] [address] 36on 12-28-2024 36 Patients Nucynta was denied by Medicare. Patient calling to see what the next step is. 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 No meds taken. C/o 10/10 low back pain sharp. Had mri 2 weeks ago showing pinched nerves. Pleasant/cooperative . Pt with LAVF for HD on wed-wed-wed. Limb alert band placed Normal [facility] EDPROVon 12-27-2024 EDPROV History of Present Illness Chief Complaint Patient presents with Back Pain foot pain 54-year-old male presents for evaluation of flareup of his bilateral chronic foot pain and neuropathy. Also having some chronic back issues. He is on Lyrica but occasionally the pain will worsen. Denies any bowel bladder problems sign seizure. No new symptoms other than some increased pain in the foot and back. History provided by: Patient [place] Coma Scale Score: 15 History Past Medical History: Diagnosis Date Adrenal nodule [...] DEBRIDEMENT Right 06/08/2024 plantar medial right heel Family History Problem Relation Name Age of Onset Breast cancer Mother age 53, METS to brain Heart disease Father Evans gifford Heart attack Father Evans gifford age 26 No Known Problems Sister half-sister Breast cancer Maternal Grandmother Crohn's disease Daughter perforated bowel Cancer Father's Brother Unknown type and region Social History Tobacco Use Smoking status: Never Smokeless tobacco: Current Types: Chew Last attempt to quit: 07/2022 Tobacco comments: Check status Vaping Use Vaping status: Never Used Substance Use Topics Alcohol use: Not Currently Comment: Previous occasional use - rare / once per year Drug use: Not Currently Review of Systems Review of Systems Musculoskeletal: Positive for back pain. Neurological: Positive for numbness. Negative for weakness. Physical Exam ED Triage Vitals Temp Heart Rate Resp BP 12/27/2420312/27/2420312/27/2420012/27/24203 36.5 ???C (97.7 ???F) 73 16 163/71 SpO2 Temp src Heart Rate Source Patient Position 12/27/24203 -- 12/27/2420012/27/24200 97 % Monitor Sitting BP Location FiO2 (%) 12/27/24 0201 -- Right arm Physical Exam Vitals and nursing note reviewed. Musculoskeletal: General: Normal range of motion. Thoracic back: Normal. Lumbar back: Normal. No tenderness. Normal range of motion. Comments: Lumbar exam normal. Inspection of bilateral feet shows good pulses. Does have covered right heel wound as well as a ulcer under the first metatarsal. Appears chronic. No discharge or bruising. Skin: General: Skin is warm and dry. Procedures ED Course & MDM Diagnoses as of 12/27/24 0240 Chronic bilateral low back pain without sciatica Neuropathy Medical Decision Making Exam unremarkable. Patient will be happy with a injection of Toradol which she has been given before. He is on dialysis and will begin dialysis later today. He is to try the muscle laxer I am prescribing him to keep following up with his pain doctors were trying to get him approved for a medicine to help him. Attestion Tanvir Smith MD 12/27/24 0357 [facility] Telephoneon 12-26-2024 Telephone [id number] Evans Forte 1970 M Date Provider Department Center 12/26/2024 JULIO SARKAR PAIN [facility] Family History Problem Relation [...] Sister Maternal Grandmother Daughter Father's Brother Alive [facility] 36on 12-22-2024 36 Contacted pt and lvm for patient. Patient has not had psych eval done yet and is scheduled for SCS trial on 01/02/25. [facility] Follow-Upon 12-21-2024 Follow-Up [id number] Evans Forte 1970 M Date Provider Department Center 12/21/2024 CHONG WARREN PAIN [facility] Family History Problem [...] Grandmother Daughter Father's Brother Alive Level of Service:22171 [place] OFFICE/OUTPATIENT ESTABLISHED MOD MDM 30 MIN Reason for Visit and Comments: Follow-up [820465] - Neuropathic pain Normal [facility] Office Visiton 12-21-2024 Follow-up visit [id number] Evans Forte 1970 M Date Provider Department Center 12/21/2024 Bridget-HEAVENLY BUENO ONC DCC Family History Problem Relation Age of Onset [...] Grandmother Daughter Father's Brother Alive Level of Service:34482 [place] OFFICE/OUTPATIENT ESTABLISHED MOD MDM 30 MIN Reason for Visit and Comments: Follow-up [436119] - 3 month follow up [facility] Orders Onlyon 12-21-2024 Orders Only [id number] Evans Forte 1970 M Date Provider Department Center 12/21/2024 CHONG WARREN PAIN [facility] Family History Problem [...] Sister Maternal Grandmother Daughter Father's Brother Alive [facility] 36on 12-15-2024 36 TC contacted patient to follow up on status of work up. Patient states working with podiatry, no wounds at this time. Working with pain management doctor. Still working on dental clearance. Pt states still seeing ID for prior lymph node concerns. Pt has no additional concerns at this time. Melinda Keen, JACOB [facility] 36 Please let patient k now that I ordered valium for him to take prior to his MRI. Thank you [facility] 36 Order for oral Valiu m 10mg x1 to be taken prior to MRI placed today. Patient update. [facility] 36on 12-14-2024 36 LVM to call back to reschedule his NS appt TRS 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 Correlate with physical exam findings. Consider ultrasound for further evaluation. Electronically signed: Chintan Villanueva MD. Not Vldtd Invalid Interpretation Code [facility] Telephoneon 12-12-2024 Telephone [id number] Evans Forte 1970 M Date Provider Department Center 12/12/2024 KELLY FRANCOIS PAIN Medical [facility] Family History Problem Relation [...] Sister Maternal Grandmother Daughter Father's Brother Alive Reason for Visit and Comments: MRI [Other] [facility] 36on 12-05-2024 36 Pt contacted clinic to be seen sooner to discuss pain medication. At the moment there is not any sooner appointment. Patient is on the cancellation list and patient also educated to contact clinic as well to ask for cancellations. [facility] 36 Patient contacted clinic back and va underwriter let patient know of Dr. Cooley's response. Patient states he has increased his dose a long time ago and it is not working. Patient states he will contact his PCP to receive pain medication until he has the procedure. [facility] [address] Cooley regarding athis and he would like patient to increase dose to 20mg nightly like discussed at visit. Pool Hand called and left message for patient with new dosing instructions. Pool Hand also stated that medication changes are not done over the phone and any further changes will need to be discussed at an office visit. [facility] 36on 12-04-2024 36 Patient contacted clinic and wanted to let you know that the medication is not working for his pain. Patient states he has been on it for two weeks. [facility] Telephoneon 12-04-2024 Telephone [id number] Evans Forte 1970 M Date Provider Department Center 12/04/2024 [id number]-PSDPRJULIO RIVERO PAIN Medical [facility] Family History Problem [...] Sister Maternal Grandmother Daughter Father's Brother Alive [facility] US venous duplex LE RTon US venous duplex LE RT [facility] [place] [address] Ultrasound Report Signed Patient: Evans Forte MR#: [id number] : 1970 Acct:[id number] Age/Sex: 54 / M ADM Date: 11/27/24 Loc: ER Room: Type: [facility] ER Attending Dr: Ordering Provider: Venkat Burgos [...] Ramirez Jean MD 11/28/24 1528 Signed By: 11/28/24 1529 Normal The Count Includes [facility] Basic Metabolic Panelon - Anion gap [Moles/Vol] 17.2 mmol/L High 6.0-15.0 Th e Count Includes [facility] Comment on above: Performed By: #### C BC, ESR, BMP, CRP ####[place] [id number] [place] [id number] [facility] Calcium [Mass/Vol] 9.1 mg/dL Normal 8.6-10.3 [facility] Comment on above: Performed By: #### C BC, ESR, BMP, CRP ####[place] [id number] [facility] Chloride [Moles/Vol] 93 mmol/L Low 98-107 The Count Includes [facility] Comment on above: Performed By: #### C BC, ESR, BMP, CRP ####[place] [id number] [facility] CO2 [Moles/Vol] 24.7 mmol/L Normal 21.0-31.0 [facility] Comment on above: Performed By: #### C BC, ESR, BMP, CRP ####[place] [id number] [facility] Creatinine [Mass/Vol] 6.56 mg/dL High 0.70-1.30 The Count Includes [facility] Comment on above: Performed By: #### C BC, ESR, BMP, CRP ####[place] [id number] [facility] Creatinine Clr Calc Pharmacy 19.67 Normal The Count Includes [facility] Comment on above: Performed By: #### C BC, ESR, BMP, CRP ####[place] [id number] [facility] Estimated GFR 9.418 mL/Min Normal [facility] Comment on above: Performed By: #### C BC, ESR, BMP, CRP ####[place] [id number] [facility] Glucose [Mass/Vol] 199 mg/dL High 70-100 [facility] Comment on above: Result Comment: [place] Glucose Reference Range is dependent on time and content of last meal. Glucose of more than 200 mg/dL in a nonstressed, ambulatory subject supports the diagnosis of Diabetes Mellitus. ADA recommended reference range Performed By: #### C BC, ESR, BMP, CRP ####[place] [address] Potassium [Moles/Vol] 3.9 mmol/L Normal 3.5-5.1 The Count Includes [facility] Comment on above: Performed By: #### C BC, ESR, BMP, CRP ####[place] [address] Sodium [Moles/Vol] 131 mmol/L Low 136-145 [facility] Comment on above: Performed By: #### C BC, ESR, BMP, CRP ####[place] [address] Urea nitrogen [Mass/Vol] 47 mg/dL High 7-25 The Count Includes [facility] Comment on above: Performed By: #### C BC, ESR, BMP, CRP ####[address] Basophils Auto (Bld) [#/Vol] Ordered By: Venkat Burgos on 11-27-2024 Basophils (Bld) [#/Vol] Automated basophil count 0.0-0.2 [facility] Basophils/100 WBC Auto (Bld) Ordered By: Venkat Burgos on 11-27-2024 Basophils/100 WBC (Bld) Automated basophil % . [facility] C reactive protein [Mass/vol ume] in Serum or PlasmaOrdered By: Venkat Burgos on 11-27-2024 CRP [Mass/Vol] C reactive protein [Mass/volume] in Serum or Plasma High 0.0-0.5 [facility] C-Reactive Proteinon 025 C-Reactive Protein 2.8 mg/dL High 0.0-0.5 [facility] Comment on above: Result Comment: PERF ORMED BY: [facility] [address] [facility] [place] [place] [address] PATHOLOGIST SHIRRING TENDER KIM ELLIOTT M.D. Performed By: #### C BC, ESR, BMP, CRP ####[address] Calcium [Mass/volume] in Ser um or PlasmaOrdered By: Venkat Burgos on 11-27-2024 Calcium [Mass/Vol] Calcium [Mass/volume ] in Serum or Plasma 8.6-10.3 [facility] Carbon dioxide, total [Moles /volume] in Serum or PlasmaOrdered By: Venkat Burgos on 11-27-2024 CO2 [Moles/Vol] Carbon dioxide, tota l [Moles/volume] in Serum or Plasma 21.0-31.0 [facility] Chloride [Moles/volume] in S james or PlasmaOrdered By: Venkat Burgos on 11-27-2024 Chloride [Moles/Vol] Chloride [Moles/vol ume] in Serum or Plasma Low 98-107 [facility] Complete Blood Count Auto Di ffon 11-27-2024 Basophils (Bld) [#/Vol] 0.1 10*3/uL Normal 0.0-0.2 The Count Includes [facility] Comment on above: Performed By: #### C BC, ESR, BMP, CRP ####[address] Basophils/100 WBC (Bld) 1.0 % Normal . The Count Includes [facility] Comment on above: Performed By: #### C BC, ESR, BMP, CRP ####[address] Eosinophils (Bld) [#/Vol] 0.6 10*3/uL High 0.0-0.45 The Count Includes [facility] Comment on above: Performed By: #### C BC, ESR, BMP, CRP ####[address] Eosinophils/100 WBC (Bld) 6.0 % Normal . The Count Includes [facility] Comment on above: Performed By: #### C BC, ESR, BMP, CRP ####[address] Erythrocyte distribution width (RBC) [Ratio] 15.0 % High 12.0-14.8 The Count Includes [facility] Comment on above: Performed By: #### C BC, ESR, BMP, CRP ####[address] Hematocrit (Bld) [Volume fraction] 35.6 % Low 38.8-50.0 The Count Includes [facility] Comment on above: Performed By: #### C BC, ESR, BMP, CRP ####[address] Hemoglobin (Bld) [Mass/Vol] 12.1 g/dL Low 13.0-17.0 The Count Includes [facility] Comment on above: Performed By: #### C BC, ESR, BMP, CRP ####[address] Lymphocytes (Bld) [#/Vol] 1.5 10*3/uL Normal 1.00-4.8 The Count Includes [facility] Comment on above: Performed By: #### C BC, ESR, BMP, CRP ####[address] Lymphocytes/100 WBC (Bld) 14.1 % Normal . The Count Includes [facility] Comment on above: Performed By: #### C BC, ESR, BMP, CRP ####[address] MCH (RBC) [Entitic mass] 30.6 pg Normal 27.5-35.2 The Count Includes [facility] Comment on above: Performed By: #### C BC, ESR, BMP, CRP ####[address] MCV (RBC) [Entitic vol] 90.1 fL Normal 83.5-101 The Count Includes [facility] Comment on above: Performed By: #### C BC, ESR, BMP, CRP ####[address] Mean Corpuscular HGB Conc 33.9 g/dL Normal 32.5-35.6 The Count Includes [facility] Comment on above: Performed By: #### C BC, ESR, BMP, CRP ####[address] Monocytes (Bld) [#/Vol] 1.0 10*3/uL High 0.0-0.8 The Count Includes [facility] Comment on above: Performed By: #### C BC, ESR, BMP, CRP ####[place] [id number] [facility] Monocytes/100 WBC (Bld) 18.22 % Normal 0.00-20.00 The Count Includes [facility] Comment on above: Performed By: #### C BC, ESR, BMP, CRP ####[address] Monocytes/100 WBC (Bld) 9.3 % Normal . The Count Includes [facility] Comment on above: Performed By: #### C BC, ESR, BMP, CRP ####[address] Neutrophils (Bld) [#/Vol] 7.4 10*3/uL Normal 1.8-7.7 The Count Includes [facility] Comment on above: Performed By: #### C BC, ESR, BMP, CRP ####[place] [id number] [facility] Neutrophils/100 WBC (Bld) 69.6 % Normal . The Count Includes [facility] Comment on above: Performed By: #### C BC, ESR, BMP, CRP ####[address] NRBC% 0.0 /100{WBC} Normal 0-0.5 [facility] Comment on above: Performed By: #### C BC, ESR, BMP, CRP ####[place] [id number] [facility] Platelet mean volume (Bld) [Entitic vol] 7.0 fL Normal 6.6-10.1 [facility] Comment on above: Performed By: #### C BC, ESR, BMP, CRP ####[place] [id number] [facility] Platelets (Bld) [#/Vol] 400 10*3/uL Normal 150-450 The Count Includes [facility] Comment on above: Performed By: #### C BC, ESR, BMP, CRP ####[address] RBC (Bld) [#/Vol] 3.95 10*6/uL Normal 3.90-5.60 [facility] Comment on above: Performed By: #### C BC, ESR, BMP, CRP ####[address] WBC (Bld) [#/Vol] 10.6 10*3/uL High 4.1-10.5 [facility] Comment on above: Performed By: #### C BC, ESR, BMP, CRP ####[address] Creatinine [Mass/volume] in Serum or PlasmaOrdered By: Venkat Burgos on 11-27-2024 Creatinine [Mass/Vol] Creatinine [Mass/volume] in Serum or Plasma High 0.70-1.30 [facility] Eosinophils Auto (Bld) [#/Vo l]Ordered By: Venkat Burgos on 11-27-2024 Eosinophils (Bld) [#/Vol] Automated eosinophil count High 0.0-0.45 [facility] Eosinophils/100 WBC Auto (Bl d)Ordered By: Venkat Burgos on 11-27-2024 Eosinophils/100 WBC (Bld) Automated eosinophil % . [facility] Erythrocyte Sedimentation Ra darrel 11-27-2024 ESR (Bld) [Velocity] 122 mm/h High 0-19 The Count Includes [facility] Comment on above: Result Comment: PERF ORMED BY: [facility] [address] [place] [address] PATHOLOGIST SHIRRING TENDER KIM ELLIOTT M.D. Performed By: #### C BC, ESR, BMP, CRP ####[address] Erythrocyte distribution wid th Auto (RBC) [Ratio]Ordered By: Venkat Burgos on 11-27-2024 Erythrocyte distribution width (RBC) [Ratio] Erythrocyte distribution width [Ratio] by Automated count High 12.0-14.8 [facility] Erythrocyte sedimentation ra te by Photometric methodOrdered By: Venkat Burgos on 11-27-2024 ESR Photometric method (Bld) [Velocity] Erythrocyte sedimentation rate by Photometric method High 0-19 [facility] Glucose [Mass/volume] in Ser um or PlasmaOrdered By: Venkat Burgos on 11-27-2024 Glucose [Mass/Vol] Glucose [Mass/volume ] in Serum or Plasma High 70-100 [facility] Comment on above: ADA recommended refe rence rangeRandom Glucose Reference Range is dependent on time and content of last meal. Glucose of more than 200 mg/dL in a nonstressed, ambulatory subject supports the diagnosis of Diabetes Mellitus. Hematocrit Auto (Bld) [Volum e fraction]Ordered By: Venkat Burgos on 11-27-2024 Hematocrit (Bld) [Volume fraction] Hematocrit [Volume Fraction] of Blood by Automated count Low 38.8-50.0 [facility] Hemoglobin [Mass/volume] in BloodOrdered By: Venkat Burgos on 11-27-2024 Hemoglobin (Bld) [Mass/Vol] Hemoglobin [Mass/volume] in Blood Low 13.0-17.0 [facility] Leukocytes [#/volume] correc scott for nucleated erythrocytes in Blood by Automated counOrdered By: Venkat Burgos on 11-27-2024 WBC corrected for nucl RBC Auto (Bld) [#/Vol] Leukocytes [#/volume] corrected for nucleated erythrocytes in Blood by Automated coun High 4.1-10.5 [facility] Lymphocytes Auto (Bld) [#/Vo l]Ordered By: Venkat Burgos on 11-27-2024 Lymphocytes (Bld) [#/Vol] Lymphocytes [#/volume] in Blood by Automated count 1.00-4.8 [facility] Lymphocytes/100 WBC Auto (Bl d)Ordered By: Venkat Burgos on 11-27-2024 Lymphocytes/100 WBC (Bld) Lymphocytes/100 leukocytes in Blood by Automated count . [facility] MCH Auto (RBC) [Entitic mass ]Ordered By: Venkat Burgos on 11-27-2024 MCH (RBC) [Entitic mass] MCH [Entitic mass] by Automated count 27.5-35.2 [facility] MCHC Auto (RBC) [Mass/Vol]Or dered By: Venkat Burgos on 11-27-2024 MCHC (RBC) [Mass/Vol] MCHC [Mass/volume] by Automated count 32.5-35.6 [facility] MCV Auto (RBC) [Entitic vol] Ordered By: Venkat Burgos on 11-27-2024 MCV (RBC) [Entitic vol] MCV [Entitic volume] by Automated count 83.5-101 [facility] Monocyte distribution width [Entitic volume] in Blood by AutomatedOrdered By: Venkat Burgos on 11-27-2024 Monocyte distribution width Auto (Bld) [Entitic vol] Monocyte distribution width [Entitic volume] in Blood by Automated 0.00-20.00 [facility] Monocytes Auto (Bld) [#/Vol] Ordered By: Venkat Burgos on 11-27-2024 Monocytes (Bld) [#/Vol] Automated blood monocyte count High 0.0-0.8 [facility] Monocytes/100 WBC Auto (Bld) Ordered By: Venkat Burgos on 11-27-2024 Monocytes/100 WBC (Bld) Automated monocyte % . [facility] Neutrophils Auto (Bld) [#/Vo l]Ordered By: Venkat Burgos on 11-27-2024 Neutrophils (Bld) [#/Vol] Neutrophils [#/volume] in Blood by Automated count 1.8-7.7 [facility] Neutrophils/100 WBC Auto (Bl d)Ordered By: Venkat Burgos on 11-27-2024 Neutrophils/100 WBC (Bld) Automated neutrophil % . [facility] No Panel InformationOrdered By: Venkat Burgos on 11-27-2024 Estimated GFR (CKD-EPI) 9.418 mL/Min [facility] Creatinine Clearance (Chem 19.67 [facility] Nucleated erythrocytes [Pres ence] in Blood by Automated countOrdered By: Venkat Burgos on 11-27-2024 Nucleated RBC Auto Ql (Bld) Nucleated erythrocytes [Presence] in Blood by Automated count 0-0.5 [facility] Platelet mean volume Auto (B ld) [Entitic vol]Ordered By: Venkat Burgos on 11-27-2024 Platelet mean volume (Bld) [Entitic vol] Platelet mean volume [Entitic volume] in Blood by Automated count 6.6-10.1 [facility] Platelets Auto (Bld) [#/Vol] Ordered By: Venkat Burgos on 11-27-2024 Platelets (Bld) [#/Vol] Platelets [#/volume] in Blood by Automated count 150-450 [facility] Potassium [Moles/volume] in Serum or PlasmaOrdered By: Venkat Burgos on 11-27-2024 Potassium [Moles/Vol] Potassium [Moles/volume] in Serum or Plasma 3.5-5.1 [facility] RBC Auto (Bld) [#/Vol]Ordere d By: Venkat Burgos on 11-27-2024 RBC (Bld) [#/Vol] Erythrocytes [#/volu me] in Blood by Automated count 3.90-5.60 [facility] Serum or plasma anion gap de terminationOrdered By: Venkat Burgos on 11-27-2024 Anion gap [Moles/Vol] Serum or plasma an ion gap determination High 6.0-15.0 [facility] Sodium [Moles/volume] in Ser um or PlasmaOrdered By: Venkat Burgos on 11-27-2024 Sodium [Moles/Vol] Sodium [Moles/volume ] in Serum or Plasma Low 136-145 [facility] Urea nitrogen [Mass/volume] in Serum or PlasmaOrdered By: Venkat Burgos on 11-27-2024 Urea nitrogen [Mass/Vol] Urea nitrogen [Mass/volume] in Serum or Plasma High 7-25 [facility] WBC Auto (Bld) [#/Vol]Ordere d By: Venkat Burgos on 11-27-2024 WBC (Bld) [#/Vol] Leukocytes [#/volume ] in Blood by Automated count High 4.1-10.5 [facility] Office Visiton 11-23-2024 Follow-up visit [id number] Evans Forte 1970 M Date Provider Department Center 11/23/2024 [facility] Medical Pavi Family History Problem Relation Age [...] Grandmother Daughter Father's Brother Alive Level of Service:54025 [place] OFFICE/OUTPATIENT NEW MODERATE MDM 45 MINUTES (GC) Reason for Visit and Comments: New Patient [632] - Neuropathy Normal [facility] Telemedicineon 11-07-2024 Telemedicine [id number] Evans Forte 1970 M Date Provider Department Center 11/07/2024 [facility] Family History Problem [...] Grandmother Daughter Father's Brother Alive Level of Service:38488 [place] OFFICE/OUTPATIENT ESTABLISHED SF MDM 10 MIN (95) [facility] Follow-Upon 10-31-2024 Follow-Up [id number] Jama 1970 M Date Provider Department Center 10/31/2024 [facility] W[facility] Family [...] Grandmother Daughter Father's Brother Alive Level of Service:76733 [place] OFFICE/OUTPATIENT ESTABLISHED MOD MDM 30 MIN [facility] Alanine aminotransferase [En zymatic activity/volume] in Serum or PlasmaOrdered By: Will Crena on 10-29-2024 ALT [Catalytic activity/Vol] Alanine aminotransferase [Enzymatic activity/volume] in Serum or Plasma 7-52 [facility] Albumin [Mass/volume] in Ser um or Plasma by Bromocresol green (BCG) dye binding methoOrdered By: Will Cerna on 10-29-2024 Albumin BCG dye [Mass/Vol] Albumin [Mass/volume] in Serum or Plasma by Bromocresol green (BCG) dye binding metho 3.5-5.7 [facility] Alkaline phosphatase [Enzyma tic activity/volume] in Serum or PlasmaOrdered By: Will Cerna on 10-29-2024 ALP [Catalytic activity/Vol] Alkaline phosphatase [Enzymatic activity/volume] in Serum or Plasma 34-104 [facility] Aspartate aminotransferase [ Enzymatic activity/volume] in Serum or PlasmaOrdered By: Will Cerna on 10-29-2024 AST [Catalytic activity/Vol] Aspartate aminotransferase [Enzymatic activity/volume] in Serum or Plasma Low 13-39 [facility] Basophils Auto (Bld) [#/Vol] Ordered By: Will Cerna on 10-29-2024 Basophils (Bld) [#/Vol] Automated basophil count 0.0-0.2 [facility] Basophils/100 WBC Auto (Bld) Ordered By: Will Cerna on 10-29-2024 Basophils/100 WBC (Bld) Automated basophil % . [facility] Bilirubin.total [Mass/volume ] in Serum or PlasmaOrdered By: Will Cerna on 10-29-2024 Bilirubin [Mass/Vol] Bilirubin.total [Mass/volume] in Serum or Plasma 0.3-1.0 [facility] Blood Cultureon 10-29-2024 Bacteria identified Cx Nom (Bld) NO GROWTH 5 DAYS PERFORMED BY: [address] [place] [address] PATHOLOGIST SHIRRING TENDER KIM ELLIOTT M.D. Normal The Count Includes [facility] Comment on above: Performed By: #### G LULS #### Point of Care testing , Bacteria identified Cx Nom (Bld) NO GROWTH 5 DAYS PERFORMED BY: [address] [place] [place] [address] PATHOLOGIST SHIRRING TENDER KIM ELLIOTT M.D. Normal The Count Includes [facility] Comment on above: Performed By: #### G FELICITAS #### Point of Care testing , C reactive protein [Mass/vol ume] in Serum or PlasmaOrdered By: Will Cerna on 10-29-2024 CRP [Mass/Vol] C reactive protein [Mass/volume] in Serum or Plasma High 0.0-0.5 [facility] C-Reactive Proteinon 025 C-Reactive Protein 1.5 mg/dL High 0.0-0.5 [facility] Comment on above: Result Comment: PERF ORMED BY: [facility] [address] [facility] [place] [address] PATHOLOGIST SHIRRING TENDER KIM ELLIOTT M.D. Performed By: #### G FELICITAS #### Point of Care testing , Calcium [Mass/volume] in Ser um or PlasmaOrdered By: Will Cerna on 10-29-2024 Calcium [Mass/Vol] Calcium [Mass/volume ] in Serum or Plasma 8.6-10.3 [facility] Carbon dioxide, total [Moles /volume] in Serum or PlasmaOrdered By: Will Cerna on 10-29-2024 CO2 [Moles/Vol] Carbon dioxide, tota l [Moles/volume] in Serum or Plasma 21.0-31.0 [facility] Chloride [Moles/volume] in S james or PlasmaOrdered By: Will Cerna on 10-29-2024 Chloride [Moles/Vol] Chloride [Moles/vol ume] in Serum or Plasma 98-107 [facility] Complete Blood Count Auto Di ffon 10-29-2024 Basophils (Bld) [#/Vol] 0.1 10*3/uL Normal 0.0-0.2 The Count Includes [facility] Comment on above: Performed By: #### C MP, CRP, LACTIC, CBC, ESR ####[facility] [id number] Basophils/100 WBC (Bld) 1.1 % Normal . The Count Includes [facility] Comment on above: Performed By: #### C MP, CRP, LACTIC, CBC, ESR ####[facility] [id number] Eosinophils (Bld) [#/Vol] 0.3 10*3/uL Normal 0.0-0.45 The Count Includes [facility] Comment on above: Performed By: #### C MP, CRP, LACTIC, CBC, ESR ####[address] Eosinophils/100 WBC (Bld) 3.4 % Normal . The Count Includes [facility] Comment on above: Performed By: #### C MP, CRP, LACTIC, CBC, ESR ####[address] Erythrocyte distribution width (RBC) [Ratio] 14.3 % Normal 12.0-14.8 The Count Includes [facility] Comment on above: Performed By: #### C MP, CRP, LACTIC, CBC, ESR ####[address] Hematocrit (Bld) [Volume fraction] 35.5 % Low 38.8-50.0 The Count Includes [facility] Comment on above: Performed By: #### C MP, CRP, LACTIC, CBC, ESR ####[address] Hemoglobin (Bld) [Mass/Vol] 12.1 g/dL Low 13.0-17.0 The Count Includes [facility] Comment on above: Performed By: #### C MP, CRP, LACTIC, CBC, ESR ####[address] Lymphocytes (Bld) [#/Vol] 1.4 10*3/uL Normal 1.00-4.8 The Count Includes [facility] Comment on above: Performed By: #### C MP, CRP, LACTIC, CBC, ESR ####[address] Lymphocytes/100 WBC (Bld) 14.2 % Normal . The Count Includes [facility] Comment on above: Performed By: #### C MP, CRP, LACTIC, CBC, ESR ####[address] MCH (RBC) [Entitic mass] 31.2 pg Normal 27.5-35.2 The Count Includes [facility] Comment on above: Performed By: #### C MP, CRP, LACTIC, CBC, ESR ####[address] MCV (RBC) [Entitic vol] 91.2 fL Normal 83.5-101 The Count Includes [facility] Comment on above: Performed By: #### C MP, CRP, LACTIC, CBC, ESR ####[address] Mean Corpuscular HGB Conc 34.2 g/dL Normal 32.5-35.6 The Count Includes [facility] Comment on above: Performed By: #### C MP, CRP, LACTIC, CBC, ESR ####[address] Monocytes (Bld) [#/Vol] 0.7 10*3/uL Normal 0.0-0.8 The Count Includes [facility] Comment on above: Performed By: #### C MP, CRP, LACTIC, CBC, ESR ####[address] Monocytes/100 WBC (Bld) 13.40 % Normal 0.00-20.00 The Count Includes [facility] Comment on above: Performed By: #### C MP, CRP, LACTIC, CBC, ESR ####[address] Monocytes/100 WBC (Bld) 6.8 % Normal . The Count Includes [facility] Comment on above: Performed By: #### C MP, CRP, LACTIC, CBC, ESR ####[address] Neutrophils (Bld) [#/Vol] 7.5 10*3/uL Normal 1.8-7.7 The Count Includes [facility] Comment on above: Performed By: #### C MP, CRP, LACTIC, CBC, ESR ####[address] Neutrophils/100 WBC (Bld) 74.5 % Normal . The Count Includes [facility] Comment on above: Performed By: #### C MP, CRP, LACTIC, CBC, ESR ####[address] NRBC% 0.0 /100{WBC} Normal 0-0.5 [facility] Comment on above: Performed By: #### C MP, CRP, LACTIC, CBC, ESR ####[address] Platelet mean volume (Bld) [Entitic vol] 6.7 fL Normal 6.6-10.1 [facility] Comment on above: Performed By: #### C MP, CRP, LACTIC, CBC, ESR ####[address] Platelets (Bld) [#/Vol] 368 10*3/uL Normal 150-450 The Count Includes [facility] Comment on above: Performed By: #### C MP, CRP, LACTIC, CBC, ESR ####[address] RBC (Bld) [#/Vol] 3.89 10*6/uL Low 3.90-5.60 [facility] Comment on above: Performed By: #### C MP, CRP, LACTIC, CBC, ESR ####[address] WBC (Bld) [#/Vol] 10.1 10*3/uL Normal 4.1-10.5 [facility] Comment on above: Performed By: #### C MP, CRP, LACTIC, CBC, ESR ####[address] Comprehensive Metabolic Pane nick 10-29-2024 Albumin [Mass/Vol] 4.3 g/dL Normal 3.5-5.7 [facility] Comment on above: Performed By: #### G LULS #### Point of Care testing , Albumin/Globulin [Mass ratio] 1.1 {ratio} Normal The Count Includes [facility] Comment on above: Performed By: #### G LULS #### Point of Care testing , ALP [Catalytic activity/Vol] 90 U/L Normal 34-104 The Count Includes [facility] Comment on above: Performed By: #### G LULS #### Point of Care testing , ALT [Catalytic activity/Vol] 11 U/L Normal 7-52 The Count Includes [facility] Comment on above: Performed By: #### G LULS #### Point of Care testing , Anion gap [Moles/Vol] 16.6 mmol/L High 6.0-15.0 Th e Count Includes [facility] Comment on above: Performed By: #### G LULS #### Point of Care testing , AST [Catalytic activity/Vol] 7 U/L Low 13-39 The Count Includes [facility] Comment on above: Performed By: #### G LULS #### Point of Care testing , Bilirubin [Mass/Vol] 0.4 mg/dL Normal 0.3-1.0 The Count Includes [facility] Comment on above: Performed By: #### G LULS #### Point of Care testing , Calcium [Mass/Vol] 9.4 mg/dL Normal 8.6-10.3 [facility] Comment on above: Performed By: #### G LULS #### Point of Care testing , Chloride [Moles/Vol] 100 mmol/L Normal 98-107 The Count Includes [facility] Comment on above: Performed By: #### G LULS #### Point of Care testing , CO2 [Moles/Vol] 25.8 mmol/L Normal 21.0-31.0 [facility] Comment on above: Performed By: #### G LULS #### Point of Care testing , Creatinine [Mass/Vol] 9.58 mg/dL High 0.70-1.30 The Count Includes [facility] Comment on above: Performed By: #### G LULS #### Point of Care testing , Creatinine Clr Calc Pharmacy 13.36 Normal The Count Includes [facility] Comment on above: Performed By: #### G LULS #### Point of Care testing , Estimated GFR 5.978 mL/Min Normal [facility] Comment on above: Performed By: #### G LULS #### Point of Care testing , Globulin (S) [Mass/Vol] 3.9 g/dL Normal The Count Includes [facility] Comment on above: Performed By: #### G LULS #### Point of Care testing , Glucose [Mass/Vol] 259 mg/dL High 70-100 [facility] Comment on above: Result Comment: [place] Glucose Reference Range is dependent on time and content of last meal. Glucose of more than 200 mg/dL in a nonstressed, ambulatory subject supports the diagnosis of Diabetes Mellitus. ADA recommended reference range Performed By: #### G LULS #### Point of Care testing , Potassium [Moles/Vol] 4.4 mmol/L Normal 3.5-5.1 The Count Includes [facility] Comment on above: Performed By: #### G LULS #### Point of Care testing , Protein [Mass/Vol] 8.2 g/dL Normal 6.4-8.9 [facility] Comment on above: Performed By: #### G LULS #### Point of Care testing , Sodium [Moles/Vol] 138 mmol/L Normal 136-145 [facility] Comment on above: Performed By: #### G LULS #### Point of Care testing , Urea nitrogen [Mass/Vol] 78 mg/dL High 7-25 The Count Includes [facility] Comment on above: Performed By: #### G LULS #### Point of Care testing , Creatinine [Mass/volume] in Serum or PlasmaOrdered By: Will Cerna on 10-29-2024 Creatinine [Mass/Vol] Creatinine [Mass/volume] in Serum or Plasma High 0.70-1.30 [facility] ECG 12 lead ECGon 10-29-2024 ECG 12 lead ECG [facility] [address] Electrocardiograph Report Signed Patient: Evans Forte MR#: [id number] : 1970 Acct:[id number] Age/Sex: 54 / M ADM Date: 10/29/24 Loc: Room: [address] [place] [address] Type: ADM IN Attending Dr: Maxime Magana [...] No significant change was found Confirmed by UDAY SALGADO DO ([id number]) on 10/30/2024 1:34:21 AM Referred By: Electronically Signed By: UDAY SALGADO DO Transcribed By: MUS Signed By Uday Salgado DO 10/30 0134 Normal The Count Includes [facility] Eosinophils Auto (Bld) [#/Vo l]Ordered By: Will Cerna on 10-29-2024 Eosinophils (Bld) [#/Vol] Automated eosinophil count 0.0-0.45 [facility] Eosinophils/100 WBC Auto (Bl d)Ordered By: Will Cerna on 10-29-2024 Eosinophils/100 WBC (Bld) Automated eosinophil % . [facility] Erythrocyte Sedimentation Ra darrel 10-29-2024 ESR (Bld) [Velocity] 74 mm/h High 0-19 The Count Includes [facility] Comment on above: Result Comment: PERF ORMED BY: [facility] [address] [place] [address] PATHOLOGIST SHIRRING TENDER KIM ELLIOTT M.D. Performed By: #### C MP, CRP, LACTIC, CBC, ESR ####[facility] [id number] Erythrocyte distribution wid th Auto (RBC) [Ratio]Ordered By: Will Cerna on 10-29-2024 Erythrocyte distribution width (RBC) [Ratio] Erythrocyte distribution width [Ratio] by Automated count 12.0-14.8 [facility] Erythrocyte sedimentation ra te by Photometric methodOrdered By: Will Cerna on 10-29-2024 ESR Photometric method (Bld) [Velocity] Erythrocyte sedimentation rate by Photometric method High 0-19 [facility] Globulin Calc (S) [Mass/Vol] Ordered By: Will Cerna on 10-29-2024 Globulin (S) [Mass/Vol] Serum globulin measurement by calculation (mass/volume) [facility] Glucose Glucometer (BldC) [M ass/Vol]Ordered By: Maxime Magana on 10-29-2024 Glucose [Mass/Vol] Capillary blood gluc ose measurement by glucometer (mass/volume) [facility] Comment on above: Random Glucose Refer ence Range is dependent on time and content of last meal. Glucose of more than 200 mg/dL in a nonstressed, ambulatory subject supports the diagnosis of Diabetes Mellitus. Glucose Poct Glucometerson 0 10-29-2024 Glucose [Mass/Vol] 244 mg/dL Normal [facility] Comment on above: Result Comment: [place] om Glucose Reference Range is dependent on time and content of last meal. Glucose of more than 200 mg/dL in a nonstressed, ambulatory subject supports the diagnosis of Diabetes Mellitus. PERFORMED BY: [facility] [address] [place] [address] PATHOLOGIST SHIRRING TENDER KIM ELLIOTT M.D. Performed By: #### G LULS #### Point of Care testing , Glucose [Mass/volume] in Ser um or PlasmaOrdered By: Will Cerna on 10-29-2024 Glucose [Mass/Vol] Glucose [Mass/volume ] in Serum or Plasma High 70-100 [facility] Comment on above: ADA recommended refe rence rangeRandom Glucose Reference Range is dependent on time and content of last meal. Glucose of more than 200 mg/dL in a nonstressed, ambulatory subject supports the diagnosis of Diabetes Mellitus. Hematocrit Auto (Bld) [Volum e fraction]Ordered By: Will Cerna on 10-29-2024 Hematocrit (Bld) [Volume fraction] Hematocrit [Volume Fraction] of Blood by Automated count Low 38.8-50.0 [facility] Hemoglobin [Mass/volume] in BloodOrdered By: Will Cerna on 10-29-2024 Hemoglobin (Bld) [Mass/Vol] Hemoglobin [Mass/volume] in Blood Low 13.0-17.0 [facility] Laboratory - Microbiology an d Antimicrobial susceptibilityOrdered By: Will Cerna on 10-29-2024 Bacteria identified Cx Nom (Bld) NO GROWTH 5 DAYS [facility] Bacteria identified Cx Nom (Bld) NO GROWTH 5 DAYS [facility] Lactate [Moles/volume] in Se rum or PlasmaOrdered By: Will Cerna on 10-29-2024 Lactate [Moles/Vol] Lactate [Moles/volum e] in Serum or Plasma 0.5-1.9 [facility] Comment on above: Lactic Acid referenc e range has been updated to 0.5 1.9 mmol/L and the critical range of 2.0 or greater. Lactic Acidon 10-29-2024 Lactate [Moles/Vol] 1.0 mmol/L Normal 0.5-1.9 [facility] Comment on above: Result Comment: Lact ic Acid reference range has been updated to 0.5 ? 1.9 mmol/L and the critical range of 2.0 or greater. PERFORMED BY: [facility] [address] [place] [id number] PATHOLOGIST SHIRRING TENDER KIM ELLIOTT M.D. Performed By: #### C MP, CRP, LACTIC, CBC, ESR ####[facility] [id number] [place] [id number] [facility] Leukocytes [#/volume] correc scott for nucleated erythrocytes in Blood by Automated counOrdered By: Will Cerna on 10-29-2024 WBC corrected for nucl RBC Auto (Bld) [#/Vol] Leukocytes [#/volume] corrected for nucleated erythrocytes in Blood by Automated coun 4.1-10.5 [facility] Lymphocytes Auto (Bld) [#/Vo l]Ordered By: Will Cerna on 10-29-2024 Lymphocytes (Bld) [#/Vol] Lymphocytes [#/volume] in Blood by Automated count 1.00-4.8 [facility] Lymphocytes/100 WBC Auto (Bl d)Ordered By: Will Cerna on 10-29-2024 Lymphocytes/100 WBC (Bld) Lymphocytes/100 leukocytes in Blood by Automated count . [facility] MCH Auto (RBC) [Entitic mass ]Ordered By: Will Cerna on 10-29-2024 MCH (RBC) [Entitic mass] MCH [Entitic mass] by Automated count 27.5-35.2 [facility] MCHC Auto (RBC) [Mass/Vol]Or dered By: Will Cerna on 10-29-2024 MCHC (RBC) [Mass/Vol] MCHC [Mass/volume] by Automated count 32.5-35.6 [facility] MCV Auto (RBC) [Entitic vol] Ordered By: Will Cerna on 10-29-2024 MCV (RBC) [Entitic vol] MCV [Entitic volume] by Automated count 83.5-101 [facility] Monocyte distribution width [Entitic volume] in Blood by AutomatedOrdered By: Will Cerna on 10-29-2024 Monocyte distribution width Auto (Bld) [Entitic vol] Monocyte distribution width [Entitic volume] in Blood by Automated 0.00-20.00 [facility] Monocytes Auto (Bld) [#/Vol] Ordered By: Will Cerna on 10-29-2024 Monocytes (Bld) [#/Vol] Automated blood monocyte count 0.0-0.8 [facility] Monocytes/100 WBC Auto (Bld) Ordered By: Will Cerna on 10-29-2024 Monocytes/100 WBC (Bld) Automated monocyte % . [facility] Neutrophils Auto (Bld) [#/Vo l]Ordered By: Will Cerna on 10-29-2024 Neutrophils (Bld) [#/Vol] Neutrophils [#/volume] in Blood by Automated count 1.8-7.7 [facility] Neutrophils/100 WBC Auto (Bl d)Ordered By: Will Cerna on 10-29-2024 Neutrophils/100 WBC (Bld) Automated neutrophil % . [facility] No Panel InformationOrdered By: Will Cerna on 10-29-2024 Estimated GFR (CKD-EPI) 5.978 mL/Min [facility] Creatinine Clearance (Chem 13.36 [facility] Nucleated erythrocytes [Pres ence] in Blood by Automated countOrdered By: Will Cerna on 10-29-2024 Nucleated RBC Auto Ql (Bld) Nucleated erythrocytes [Presence] in Blood by Automated count 0-0.5 [facility] Platelet mean volume Auto (B ld) [Entitic vol]Ordered By: Will Cerna on 10-29-2024 Platelet mean volume (Bld) [Entitic vol] Platelet mean volume [Entitic volume] in Blood by Automated count 6.6-10.1 [facility] Platelets Auto (Bld) [#/Vol] Ordered By: Will Cerna on 10-29-2024 Platelets (Bld) [#/Vol] Platelets [#/volume] in Blood by Automated count 150-450 [facility] Potassium [Moles/volume] in Serum or PlasmaOrdered By: Will Cerna on 10-29-2024 Potassium [Moles/Vol] Potassium [Moles/volume] in Serum or Plasma 3.5-5.1 [facility] Protein [Mass/volume] in Ser um or PlasmaOrdered By: Will Cerna on 10-29-2024 Protein [Mass/Vol] Protein [Mass/volume ] in Serum or Plasma 6.4-8.9 [facility] RBC Auto (Bld) [#/Vol]Ordere d By: Will Cerna on 10-29-2024 RBC (Bld) [#/Vol] Erythrocytes [#/volu me] in Blood by Automated count Low 3.90-5.60 [facility] Serum or plasma albumin/glob ulin mass ratioOrdered By: Will Cerna on 10-29-2024 Albumin/Globulin [Mass ratio] Serum or plasma albumin/globulin mass ratio [facility] Serum or plasma anion gap de terminationOrdered By: Will Cerna on 10-29-2024 Anion gap [Moles/Vol] Serum or plasma an ion gap determination High 6.0-15.0 [facility] Sodium [Moles/volume] in Ser um or PlasmaOrdered By: Will Cerna on 10-29-2024 Sodium [Moles/Vol] Sodium [Moles/volume ] in Serum or Plasma 136-145 [facility] Urea nitrogen [Mass/volume] in Serum or PlasmaOrdered By: Will Cerna on 10-29-2024 Urea nitrogen [Mass/Vol] Urea nitrogen [Mass/volume] in Serum or Plasma High 7-25 [facility] WBC Auto (Bld) [#/Vol]Ordere d By: Will Cerna on 10-29-2024 WBC (Bld) [#/Vol] Leukocytes [#/volume ] in Blood by Automated count 4.1-10.5 [facility] X-ray reportOrdered By: Rony Saeed on 10-29-2024 Study report [facility] Main [address] [address] XRay Report Signed Patient: Evans Forte MR#: [id number] : 1970 Acct:[id number] Age/Sex: 54 / M ADM Date: 5 Loc: ER Room: Type: [facility] ER Attending Dr: Copies to: Will Cerna PA-C~ Ordering Provider: Will Cerna PA-C Date of [...] SOFT TISSUE SWELLING Impression dictated by: Derrick Saeed M.D.10/29/2024 6:14 PM Dictation Location: [place] [address] Transcribed By: [facility] 10/29/241813 Dictated By: Derrick Saeed MD 10/29/241810 Signed By: 10/29/241813 [facility] Work Phone: XR foot RT min 3V*on 025 XR foot RT min 3V* [facility] Main [address] [address] XRay Report Signed Patient: Evans Forte MR#: [id number] : 1970 Acct:[id number] Age/Sex: 54 / M ADM Date: 10/29/24 Loc: ER Room: Type: [facility] ER Attending Dr: Copies to: Will [...] SOFT TISSUE SWELLING Impression dictated by: Derrick Saeed M.D.10/29/2024 6:14 PM Dictation Location: [place] [address] Transcribed By: [facility] 10/29/241813 Dictated By: Derrick Saeed MD 10/29/241810 Signed By: 10/29/241813 Normal [facility] 29on 10-17-2024 29 Addended by: MARI HARE on: 10/24/2024 03:37 PM Modules accepted: Orders Normal [facility] BARTONELLA HENSELAE ANTIBODY PANELon 10-17-2024 BARTONELLA HENSELAE IGG <1:[address] [facility] Comment on above: Result Comment: INTE RPRETIVE INFORMATION: Bartonella henselae Ab, IgG Less than [...] developed and its performance characteristics determined by [facility]. It has not been cleared or approved by the [place] Food and Drug Administration. This test was performed in a CLIA certified laboratory and is intended for clinical purposes. Performed By: #### L [id number] ####[facility] ([place] [id number] BARTONELLA HENSELAE IGM < 1:[address] [facility] Comment on above: Result Comment: INTE RPRETIVE INFORMATION: Bartonella henselae Antibody, IgM Less than [...] developed and its performance characteristics determined by [facility]. It has not been cleared or approved by the [place] Food and Drug Administration. This test was performed in a CLIA certified laboratory and is intended for clinical purposes. Performed By: [facility] [address] [place] [address] Multifold Operator: Aristeo Salgado MD, PhD CLIA Number: [id number] Performed By: #### L [id number] ####[facility] [address] CHLAMYDIA TRACHOMATIS AND NE ISSERIA GONORRHEA, TMAon 10-17-2024 CHLAMYDIA TRACHOMATIS DNA PROBE (PRESENCE) IN UNSP SPEC Negative Normal Negative [facility] Comment on above: Result Comment: No C hlamydia trachomatis rRNA Detected. The Aptima Combo 2 Assay is a FDA approved target amplification nucleic acid probe test that utilizes target capture for the in vitro qualitative detection and differentiation of ribosomal RNA (rRNA) from Chlamydia trachomatis (CT) and/or Neisseria gonorrhoeae (GC) to aid the diagnosis of chlamydial and/or gonococcal urogenital disease using the [place] System. The Aptima Combo 2 Assay involves target capture, target amplification by Employment Specialist-Mediated Amplification (TMA), and the detection of the amplification products (amplicon) by the Hybridization Protection Assay (HPA). The internal process controls of the [place] System monitor the target capture, amplification, and detection steps of the assay, this is not intended to control for sampling adequacy. Performed By: #### L [id number] ####[facility] ([facility])[address] [place] [address] NEISSERIA GONORRHOEAE DNA PROBE (PRESENCE) IN UNSP SPEC Negative Normal Negative [facility] Comment on above: Result Comment: No N eisseria gonorrhoeae rRNA Detected. The Aptima Combo 2 Assay is a FDA approved target amplification nucleic acid probe test that utilizes target capture for the in vitro qualitative detection and differentiation of ribosomal RNA (rRNA) from Chlamydia trachomatis (CT) and/or Neisseria gonorrhoeae (GC) to aid the diagnosis of chlamydial and/or gonococcal urogenital disease using the [place] System. The Aptima Combo 2 Assay involves target capture, target amplification by Employment Specialist-Mediated Amplification (TMA), and the detection of the amplification products (amplicon) by the Hybridization Protection Assay (HPA). The internal process controls of the [place] System monitor the target capture, amplification, and detection steps of the assay, this is not intended to control for sampling adequacy. Performed By: #### L [id number] ####[facility] ([facility])[address] [facility] [place] [address] HISTOPLASMA ANTIGEN, URINEon 10-17-2024 HISTOPLASMA ANTIGEN URINE INTERP Not detected Normal Not Detected [facility] Comment on above: Result Comment: INTE RPRETIVE DATA: Histoplasma Galactomannan Antigen Quantitative by EIA, [...] developed and its performance characteristics determined by [facility]. It has not been cleared or approved by the U.S. Food and Drug Administration. This test was performed in a CLIA-certified laboratory and is intended for clinical purposes. Performed By: [facility] [address] [place] [address] Multifold Operator: Aristeo Salgado MD, PhD CLIA Number: [id number] Performed By: #### L [id number] #### [facility] ([facility]) [address] [place] [address] HISTOPLASMA ANTIGEN URINE QUANT Not detected Normal [facility] Comment on above: Performed By: #### L [id number] #### [facility] ([facility]) [address] [place] [address] HIV COMBO 4Gon 10-17-2024 HIV COMBO 4G Negative Normal Negative [facility] Comment on above: Performed By: #### L [id number] #### [facility] ([facility]) [address] [place] [address] Office Visiton 10-17-2024 Follow-up visit [id number] Evans Forte 1970 M Date Provider Department Center 10/17/2024 150-JOY WATERS HVC WOUND [facility] Family History [...] Grandmother Daughter Father's Brother Alive Level of Service:45200 [place] OFFICE/OUTPATIENT NEW MODERATE MDM [address] [facility] Follow-up visit [id number] Evans Forte 1970 M Date Provider Department Center 10/17/2024 [facility]F [facility] Family History Problem [...] Grandmother Daughter Father's Brother Alive Level of Service:53407 [place] OFFICE/OUTPATIENT ESTABLISHED LOW MDM [address] [facility] Orders Onlyon 10-17-2024 Orders Only [id number] Evans Forte 1970 M Date Provider Department Center 10/17/2024 [facility] DERM [facility] Family History Problem [...] Sister Maternal Grandmother Daughter Father's Brother Alive Normal [facility] RPRon 10-17-2024 REAGIN AB PRESENCE IN SERUM BY RPR Non-Reactive Normal Nonreactive [facility] Comment on above: Performed By: #### L [id number] ####[facility] ([facility])[address] [place] [address] Provider Orderson 09-25-2024 Provider Orders [id number] [facility] Orders Onlyon 09-14-2024 Orders Only [id number] Evans Forte 1970 M Date Provider Department Center 09/14/2024 [facility]F [facility] Family History Problem [...] Sister Maternal Grandmother Daughter Father's Brother Alive Normal [facility] Office Visiton 09-05-2024 Follow-up visit [id number] Evans Forte 1970 M Date Provider Department Center 09/05/2024 ERICK MATOS [facility] SURG [place] Family History Problem Relation [...] Grandmother Daughter Father's Brother Alive Level of Service:50723 [place] OFFICE/OUTPATIENT ESTABLISHED MDM 10 MIN Reason for Visit and Comments: Post-op [483] - Evans is here today for post op visit: enlarged lymph node, s/p 08/22/24 excisional lymph node biopsy Normal [facility] Basic Metabolic Panelon 08-07 Anion gap [Moles/Vol] 19.7 mmol/L High 6.0-15.0 e Count Includes [facility] Comment on above: Performed By: #### C BC, BMP, PT, PTT ####[place] [address] [place] [id number] [facility] Calcium [Mass/Vol] 9.6 mg/dL Normal 8.6-10.3 [facility] Comment on above: Performed By: #### C BC, BMP, PT, PTT ####[place] [address] [address] Chloride [Moles/Vol] 98 mmol/L Normal 98-107 The Count Includes [facility] Comment on above: Performed By: #### C BC, BMP, PT, PTT ####[place] [address] [place] [id number] [facility] CO2 [Moles/Vol] 26.6 mmol/L Normal 21.0-31.0 [facility] Comment on above: Performed By: #### C BC, BMP, PT, PTT ####[place] [address] [place] [id number] [facility] Creatinine [Mass/Vol] 5.94 mg/dL High 0.70-1.30 The Count Includes [facility] Comment on above: Performed By: #### C BC, BMP, PT, PTT ####[place] [address] [address] Creatinine Clr Calc Pharmacy 21.80 Normal The Count Includes [facility] Comment on above: Result Comment: PERF ORMED BY: [facility] [address] [place] [address] PATHOLOGIST SHIRRING TENDER KIM ELLIOTT M.D. Performed By: #### C BC, BMP, PT, PTT ####[place] [address] [address] Estimated GFR 10.609 mL/Min Normal [facility] Comment on above: Performed By: #### C BC, BMP, PT, PTT ####[place] [address] [address] Glucose [Mass/Vol] 135 mg/dL High 70-100 [facility] Comment on above: Result Comment: [facility] Glucose Reference Range is dependent on time and content of last meal. Glucose of more than 200 mg/dL in a nonstressed, ambulatory subject supports the diagnosis of Diabetes Mellitus. ADA recommended reference range Performed By: #### C BC, BMP, PT, PTT ####[place] [address] [address] Potassium [Moles/Vol] 4.3 mmol/L Normal 3.5-5.1 The Count Includes [facility] Comment on above: Performed By: #### C BC, BMP, PT, PTT ####[address] Sodium [Moles/Vol] 140 mmol/L Normal 136-145 [facility] Comment on above: Performed By: #### C BC, BMP, PT, PTT ####[place] [address] [address] Urea nitrogen [Mass/Vol] 54 mg/dL High 7-25 The Count Includes [facility] Comment on above: Performed By: #### C BC, BMP, PT, PTT ####[place] [address] [address] Basophils Auto (Bld) [#/Vol] Ordered By: Delano Mondragon on 08-29-2024 Basophils (Bld) [#/Vol] Automated basophil count 0.0-0.2 [facility] Basophils/100 WBC Auto (Bld) Ordered By: Delano Mondragon on 08-29-2024 Basophils/100 WBC (Bld) Automated basophil % . [facility] Calcium [Mass/volume] in Ser um or PlasmaOrdered By: Delano Mondragon on 08-29-2024 Calcium [Mass/Vol] Calcium [Mass/volume ] in Serum or Plasma 8.6-10.3 [facility] Carbon dioxide, total [Moles /volume] in Serum or PlasmaOrdered By: Delano Mondragon on 08-29-2024 CO2 [Moles/Vol] Carbon dioxide, tota l [Moles/volume] in Serum or Plasma 21.0-31.0 [facility] Chloride [Moles/volume] in S james or PlasmaOrdered By: Delano Mondragon on 08-29-2024 Chloride [Moles/Vol] Chloride [Moles/vol ume] in Serum or Plasma 98-107 [facility] Complete Blood Count Auto Di ffon 08-29-2024 Basophils (Bld) [#/Vol] 0.0 10*3/uL Normal 0.0-0.2 The Count Includes [facility] Comment on above: Result Comment: PERF ORMED BY: [facility] [address] [place] [address] PATHOLOGIST SHIRRING TENDER KIM ELLIOTT M.D. Performed By: #### C BC, BMP, PT, PTT #### [facility] [address] Basophils/100 WBC (Bld) 0.3 % Normal . The Count Includes [facility] Comment on above: Performed By: #### C BC, BMP, PT, PTT #### [facility] [address] [place] [address] [place] Eosinophils (Bld) [#/Vol] 0.5 10*3/uL High 0.0-0.45 The Count Includes [facility] Comment on above: Performed By: #### C BC, BMP, PT, PTT #### [facility] [address] [place] [address] [place] Eosinophils/100 WBC (Bld) 5.2 % Normal . The Count Includes [facility] Comment on above: Performed By: #### C BC, BMP, PT, PTT #### [address] Erythrocyte distribution width (RBC) [Ratio] 15.2 % High 12.0-14.8 The Count Includes [facility] Comment on above: Performed By: #### C BC, BMP, PT, PTT #### [address] Hematocrit (Bld) [Volume fraction] 36.0 % Low 38.8-50.0 The Count Includes [facility] Comment on above: Performed By: #### C BC, BMP, PT, PTT #### [address] Hemoglobin (Bld) [Mass/Vol] 12.0 g/dL Low 13.0-17.0 The Count Includes [facility] Comment on above: Performed By: #### C BC, BMP, PT, PTT #### [address] Lymphocytes (Bld) [#/Vol] 2.6 10*3/uL Normal 1.00-4.8 The Count Includes [facility] Comment on above: Performed By: #### C BC, BMP, PT, PTT #### [address] Lymphocytes/100 WBC (Bld) 26.1 % Normal . The Count Includes [facility] Comment on above: Performed By: #### C BC, BMP, PT, PTT #### [address] MCH (RBC) [Entitic mass] 31.3 pg Normal 27.5-35.2 The Count Includes [facility] Comment on above: Performed By: #### C BC, BMP, PT, PTT #### [address] MCV (RBC) [Entitic vol] 93.5 fL Normal 83.5-101 The Count Includes [facility] Comment on above: Performed By: #### C BC, BMP, PT, PTT #### [address] Mean Corpuscular HGB Conc 33.5 g/dL Normal 32.5-35.6 The Count Includes [facility] Comment on above: Performed By: #### C BC, BMP, PT, PTT #### [address] Monocytes (Bld) [#/Vol] 0.8 10*3/uL Normal 0.0-0.8 The Count Includes [facility] Comment on above: Performed By: #### C BC, BMP, PT, PTT #### [place] [address] [place] Monocytes/100 WBC (Bld) 15.54 % Normal 0.00-20.00 The Count Includes [facility] Comment on above: Performed By: #### C BC, BMP, PT, PTT #### [address] Monocytes/100 WBC (Bld) 8.3 % Normal . The Count Includes [facility] Comment on above: Performed By: #### C BC, BMP, PT, PTT #### [address] Neutrophils (Bld) [#/Vol] 5.9 10*3/uL Normal 1.8-7.7 The Count Includes [facility] Comment on above: Performed By: #### C BC, BMP, PT, PTT #### [place] [address] [place] Neutrophils/100 WBC (Bld) 60.1 % Normal . The Count Includes [facility] Comment on above: Performed By: #### C BC, BMP, PT, PTT #### [place] [address] [place] NRBC% 0.0 /100{WBC} Normal 0-0.5 [facility] Comment on above: Performed By: #### C BC, BMP, PT, PTT #### [address] Platelet mean volume (Bld) [Entitic vol] 7.0 fL Normal 6.6-10.1 [facility] Comment on above: Performed By: #### C BC, BMP, PT, PTT #### [facility] [address] [place] [id number] [place] Platelets (Bld) [#/Vol] 289 10*3/uL Normal 150-450 The Count Includes [facility] Comment on above: Performed By: #### C BC, BMP, PT, PTT #### [facility] [address] [place] [address] [place] RBC (Bld) [#/Vol] 3.85 10*6/uL Low 3.90-5.60 [facility] Comment on above: Performed By: #### C BC, BMP, PT, PTT #### [facility] [address] [place] [id number] [place] WBC (Bld) [#/Vol] 9.9 10*3/uL Normal 4.1-10.5 [facility] Comment on above: Performed By: #### C BC, BMP, PT, PTT #### [facility] [address] [place] [id number] [place] Creatinine [Mass/volume] in Serum or PlasmaOrdered By: Delano Mondragon on 08-29-2024 Creatinine [Mass/Vol] Creatinine [Mass/volume] in Serum or Plasma High 0.70-1.30 [facility] Eosinophils Auto (Bld) [#/Vo l]Ordered By: Delano Mondragon on 08-29-2024 Eosinophils (Bld) [#/Vol] Automated eosinophil count High 0.0-0.45 [facility] Eosinophils/100 WBC Auto (Bl d)Ordered By: Delano Mondragon on 08-29-2024 Eosinophils/100 WBC (Bld) Automated eosinophil % . [facility] Erythrocyte distribution wid th Auto (RBC) [Ratio]Ordered By: Delano Mondragon on 08-29-2024 Erythrocyte distribution width (RBC) [Ratio] Erythrocyte distribution width [Ratio] by Automated count High 12.0-14.8 [facility] Glucose [Mass/volume] in Ser um or PlasmaOrdered By: Delano Mondragon on 08-29-2024 Glucose [Mass/Vol] Glucose [Mass/volume ] in Serum or Plasma High 70-100 [facility] Comment on above: ADA recommended refe rence rangeRandom Glucose Reference Range is dependent on time and content of last meal. Glucose of more than 200 mg/dL in a nonstressed, ambulatory subject supports the diagnosis of Diabetes Mellitus. Hematocrit Auto (Bld) [Volum e fraction]Ordered By: Delano Mondragon on 08-29-2024 Hematocrit (Bld) [Volume fraction] Hematocrit [Volume Fraction] of Blood by Automated count Low 38.8-50.0 [facility] Hemoglobin [Mass/volume] in BloodOrdered By: Delano Mondragon on 08-29-2024 Hemoglobin (Bld) [Mass/Vol] Hemoglobin [Mass/volume] in Blood Low 13.0-17.0 [facility] INR in Platelet poor plasma by Coagulation assayOrdered By: Delano Mondragon on 08-29-2024 INR Coag (PPP) [Relative time] INR in Platelet poor plasma by Coagulation assay [facility] Comment on above: INR Therapeutic Rang e A) Pre- and Peroperative OAT started two weeks before surgery. NOT HIP SURGERY: 1.5 - 2.5 HIP SURGERY: 2 - 3B) Primary and secondary prevention of venous THROMBOSIS: 2 - 3C) Active venous thrombosis, pulmonary embolismand prevention of recurrent venous thrombosis: 2 - 3D) Prevention of arterial thromboembolismincluding patients with mechanical heart valves: 3 - 4.5 Leukocytes [#/volume] correc scott for nucleated erythrocytes in Blood by Automated counOrdered By: Delano Mondragon on 08-29-2024 WBC corrected for nucl RBC Auto (Bld) [#/Vol] Leukocytes [#/volume] corrected for nucleated erythrocytes in Blood by Automated coun 4.1-10.5 [facility] Lymphocytes Auto (Bld) [#/Vo l]Ordered By: Delano Mondragon on 08-29-2024 Lymphocytes (Bld) [#/Vol] Lymphocytes [#/volume] in Blood by Automated count 1.00-4.8 [facility] Lymphocytes/100 WBC Auto (Bl d)Ordered By: Delano Mondragon on 08-29-2024 Lymphocytes/100 WBC (Bld) Lymphocytes/100 leukocytes in Blood by Automated count . [facility] MCH Auto (RBC) [Entitic mass ]Ordered By: Delano Mondragon on 08-29-2024 MCH (RBC) [Entitic mass] MCH [Entitic mass] by Automated count 27.5-35.2 [facility] MCHC Auto (RBC) [Mass/Vol]Or dered By: Delano Mondragon on 08-29-2024 MCHC (RBC) [Mass/Vol] MCHC [Mass/volume] by Automated count 32.5-35.6 [facility] MCV Auto (RBC) [Entitic vol] Ordered By: Delano Mondragon on 08-29-2024 MCV (RBC) [Entitic vol] MCV [Entitic volume] by Automated count 83.5-101 [facility] Monocyte distribution width [Entitic volume] in Blood by AutomatedOrdered By: Delano Mondragon on 08-29-2024 Monocyte distribution width Auto (Bld) [Entitic vol] Monocyte distribution width [Entitic volume] in Blood by Automated 0.00-20.00 [facility] Monocytes Auto (Bld) [#/Vol] Ordered By: Delano Mondragon on 08-29-2024 Monocytes (Bld) [#/Vol] Automated blood monocyte count 0.0-0.8 [facility] Monocytes/100 WBC Auto (Bld) Ordered By: Delano Mondragon on 08-29-2024 Monocytes/100 WBC (Bld) Automated monocyte % . [facility] Neutrophils Auto (Bld) [#/Vo l]Ordered By: Delano Mondragon on 08-29-2024 Neutrophils (Bld) [#/Vol] Neutrophils [#/volume] in Blood by Automated count 1.8-7.7 [facility] Neutrophils/100 WBC Auto (Bl d)Ordered By: Delano Mondragon on 08-29-2024 Neutrophils/100 WBC (Bld) Automated neutrophil % . [facility] No Panel InformationOrdered By: Delano Mondragon on 08-29-2024 Estimated GFR (CKD-EPI) 10.609 mL/Min [facility] Creatinine Clearance (Chem 21.80 [facility] Nucleated erythrocytes [Pres ence] in Blood by Automated countOrdered By: Delano Mondragon on 08-29-2024 Nucleated RBC Auto Ql (Bld) Nucleated erythrocytes [Presence] in Blood by Automated count 0-0.5 [facility] Partial Thromboplastin Timeo n 08-29-2024 aPTT Coag (Bld) [Time] 36.5 s Normal 25.1-36.5 Th e Count Includes [facility] Comment on above: Result Comment: A he matocrit value greater than 55% may lead to inaccurate results in coagulation testing. Patients having hematocrit values >55% require a special collection tube for coagulation studies. Please contact the laboratory at [phone] for redraw instructions. PERFORMED BY: [facility] [address] [place] [address] PATHOLOGIST SHIRRING TENDER KIM ELLIOTT M.D. Performed By: #### C BC, BMP, PT, PTT ####[place] [id number] [place] [id number] [facility] Platelet mean volume Auto (B ld) [Entitic vol]Ordered By: Delano Mondragon on 08-29-2024 Platelet mean volume (Bld) [Entitic vol] Platelet mean volume [Entitic volume] in Blood by Automated count 6.6-10.1 [facility] Platelets Auto (Bld) [#/Vol] Ordered By: Delano Mondragon on 08-29-2024 Platelets (Bld) [#/Vol] Platelets [#/volume] in Blood by Automated count 150-450 [facility] Potassium [Moles/volume] in Serum or PlasmaOrdered By: Delano Mondragon on 08-29-2024 Potassium [Moles/Vol] Potassium [Moles/volume] in Serum or Plasma 3.5-5.1 [facility] Prothrombin Time INRon 08-29 INR Coag (PPP) [Relative time] 1.0 {INR} Normal The Count Includes [facility] Comment on above: Result Comment: INR Therapeutic Range A) Pre- and Peroperative OAT started [...] valves: 3 - 4.5 Performed By: #### C BC, BMP, PT, PTT ####[place] [id number] [place] [id number] [facility] PT Coag (PPP) [Time] 12.0 s Normal 9.0-12.9 The Count Includes [facility] Comment on above: Result Comment: A he matocrit value greater than 55% may lead to inaccurate results in coagulation testing. Patients having hematocrit values >55% require a special collection tube for coagulation studies. Please contact the laboratory at [phone] for redraw instructions. Performed By: #### C BC, BMP, PT, PTT ####[facility] [id number] [place] [id number] [facility] Prothrombin time (PT)Ordered By: Delano Mondragon on 08-29-2024 PT Coag (PPP) [Time] Prothrombin time (PT) 9.0- 12.9 [facility] Comment on above: A hematocrit value g reater than 55% may lead to inaccurate results in coagulation testing. Patients having hematocrit values >55% require a special collection tube for coagulation studies. Please contact the laboratory at [phone] for redraw instructions. RBC Auto (Bld) [#/Vol]Ordere d By: Delano Mondragon on 08-29-2024 RBC (Bld) [#/Vol] Erythrocytes [#/volu me] in Blood by Automated count Low 3.90-5.60 [facility] Serum or plasma anion gap de terminationOrdered By: Delano Mondragon on 08-29-2024 Anion gap [Moles/Vol] Serum or plasma an ion gap determination High 6.0-15.0 [facility] Sodium [Moles/volume] in Ser um or PlasmaOrdered By: Delano Mondragon on 08-29-2024 Sodium [Moles/Vol] Sodium [Moles/volume ] in Serum or Plasma 136-145 [facility] US venous duplex LE RTon US venous duplex LE RT [facility] Main [place] [address] [place] [address] Ultrasound Report Signed Patient: Evans Forte MR#: [id number] : 1970 Acct:[id number] Age/Sex: 54 / M ADM Date: 08/28/24 Loc: ER Room: Type: [facility] ER Attending Dr: Ordering Provider: Delano Mondragon [...] Ramirez Jean M.D.08/29/2024 10:46 AM Dictation Location: [facility]-04 Tech: Idania Ravindra Transcribed By: CATHLEEN 08/29/241045 Dictated By: Ramirez Jean MD 08/29/241044 Signed By: 08/29/24 104 Normal The Count Includes [facility] Urea nitrogen [Mass/volume] in Serum or PlasmaOrdered By: Delano Mondragon on 08-29-2024 Urea nitrogen [Mass/Vol] Urea nitrogen [Mass/volume] in Serum or Plasma High 7-25 [facility] WBC Auto (Bld) [#/Vol]Ordere d By: Delano Mondragon on 08-29-2024 WBC (Bld) [#/Vol] Leukocytes [#/volume ] in Blood by Automated count 4.1-10.5 [facility] aPTT in Platelet poor plasma by Coagulation assayOrdered By: Delano Mondragon on 08-29-2024 aPTT Coag (PPP) [Time] Activated partial thromboplastin time (aPTT) in platelet poor plasma by coagulation a 25.1-36.5 [facility] Comment on above: A hematocrit value g reater than 55% may lead to inaccurate results in coagulation testing. Patients having hematocrit values >55% require a special collection tube for coagulation studies. Please contact the laboratory at [phone] for redraw instructions. BONE MARROW CELL DIFFERENTIA Nick 08-22-2024 BM TOTAL CELLS COUNTED Normal [facility] Comment on above: Order Comment: See B one Marrow Exam Report Performed By: #### L [id number] ####[facility] ([facility])[address] [place] [address] BONE MARROW EXAMon 4 LAB AP ANCILLARY RESULTS Normal [facility] Comment on above: Result Comment: Daquan barrios studies were completed at [facility] Laboratories: Chromosomes, hematologic, bone marrow: - 46,XY[20]. Corrected result: Previously reported on 09/01/2024 at 1650 EST. Performed By: #### L [id number] ####[facility] ([facility])[address] [place] [address] LAB AP ASPIRATE SMEAR Normal [facility] Comment on above: Result Comment: The aspirate smears are adequately spiculate. The wameleq-kb-bpkrkbcbb ratio is normal. Cells of the myeloid [...] nucleated erythroid precursors, 24% (500 cells counted). Performed By: #### L AB6 ####[facility] ([facility])[address] [place] [address] LAB AP ASR DISCLAIMER The interpretation of [...] the Clinical Laboratory Improvement Amendments of 1998. [address] [facility] Comment on above: Performed By: #### L AB6 ####[facility] ([facility])[address] [place] [address] LAB AP CASE REPORT Normal [facility] Comment on above: Result Comment: Bone Marrow Case: [id number] Authorizing Provider: Sivan Keller MD Collected: 08/22/2024 1019 Ordering Location: [facility] CT Imaging Received: 08/22/2024 1214 Pathologist: Jade Esquivel MD Specimens: A) - Bone Marrow Clot B) - Bone Marrow Biopsy C) - Bone Marrow Aspirate Performed By: #### L AB6 ####[facility] ([facility])[address] [place] [address] LAB AP CBC AND DIFFERENTIAL Normal [facility] Comment on above: Result Comment: Comp lete blood count (CBC) done on 08/22/24 shows the [...] morphology. Platelets are adequate with unremarkable morphology. Performed By: #### L AB6 ####[facility] ([facility])[address] [place] [address] LAB AP CLINICAL INFORMATION Order Diagnoses Normal [facility] Comment on above: Result Comment: R59. 0 - Localized enlarged lymph nodes [ICD-10-CM] R59.0 - Lymphadenopathy, inguinal [ICD-10-CM] R59.0 - Pelvic lymphadenopathy [ICD-10-CM] R93.89 - Nonspecific abnormal findings on diagnostic imaging [ICD-10-CM] Performed By: #### L AB6 ####[facility] ([facility])[address] [place] [address] LAB AP CLOT SECTION Normal [facility] Comment on above: Result Comment: The aspirate clot section reveals adequate marrow particles. Marrow cellularity and composition are similar to that identified in the core biopsy. There is a single, well-circumscribed lymphoid aggregate identified. Performed By: #### L AB6 ####[facility] ([facility])[address] [facility] [place] [address] LAB AP CORE BIOPSY Normal [facility] Comment on above: Result Comment: The fragmented core biopsy reveals 0.8 cm of evaluable marrow with moderate aspiration artifact. Marrow cellularity approximates 80%, hypercellular for age. Maturing trilineage hematopoiesis is well represented. No atypical proliferation is identified. Performed By: #### L AB6 ####[facility] ([facility])[address] [facility] [place] [address] LAB AP CORRECTION HISTORY Karyotype analysis completed; no change in diagnosis. Normal [facility] Comment on above: Performed By: #### L AB6 ####[facility] ([facility])[address] [place] [address] LAB AP DIAGNOSIS COMMENT Normal [facility] Comment on above: Result Comment: Cecilia ected result: Previously reported on 09/01/2024 at 1650 EST. Performed By: #### L AB6 ####[facility] ([facility])[address] [place] [address] LAB AP FLOW CYTOMETRY SUMMARY [facility] Comment on above: Result Comment: Flow cytometry studies were completed at [facility] Laboratories: Bone marrow, flow cytometric immunophenotyping: - Normal immunophenotyping results. No monotypic B-cell population or increase in blasts identified. Performed By: #### L AB6 ####[facility] ([facility])[address] [place] [address] LAB AP GROSS DESCRIPTION Normal [facility] Comment on above: Result Comment: A. B one Marrow Clot. Received in formalin is a reddish-brown [...] staining. One slide is stained for iron. Performed By: #### L AB6 ####[facility] ([facility])[address] [place] [address] LAB AP REPORT FINAL DIAGNOSIS NARRATIVE Normal [facility] Comment on above: Result Comment: A-C. Bone marrow, aspirate smears, aspirate clot section, core biopsy and peripheral blood smear: - Hypercellular bone marrow for age (80%) with maturing trilineage hematopoiesis. - Increased storage iron; no ring sideroblasts identified. - No evidence of overt dysplasia or neoplasm. Amendment electronically signed by Jade Esquivel MD on 09/27/2024 at 2:43 PM Corrected result: Previously reported on 09/01/2024 at 1650 EST. Performed By: #### L AB6 ####[facility] ([facility])[address] [place] [address] LAB AP SPECIAL STAINS Normal [facility] Comment on above: Result Comment: Iron stains were completed on the aspirate clot section, core biopsy and aspirate smear. Storage iron is decreased; no ring sideroblasts are identified. Performed By: #### L AB6 ####[facility] ([facility])[address] [place] [address] CBC WITH AUTO DIFFERENTIALon 08-22-2024 Basophils (Bld) [#/Vol] 0.06 10*3/uL Normal 0.00-0.20 [facility] Comment on above: Performed By: #### L [id number] #### [facility] ([facility]) [address] [place] [address] Basophils/100 WBC (Bld) 0.6 % Normal 0.0-1.0 [facility] Comment on above: Performed By: #### L [id number] #### [facility] ([facility]) [address] [place] [address] Eosinophils (Bld) [#/Vol] 0.53 10*3/uL High 0.00-0.50 [facility] Comment on above: Performed By: #### L [id number] #### [facility] ([facility]) [address] [place] [address] Eosinophils/100 WBC (Bld) 5.5 % Normal 0.0-6.0 [facility] Comment on above: Performed By: #### L [id number] #### [facility] ([facility]) [address] [place] [address] Erythrocyte distribution width (RBC) [Ratio] 14.5 % Normal 11.5-15.0 [facility] Comment on above: Performed By: #### L [id number] #### [facility] ([facility]) [address] [place] [address] ERYTHROCYTE MEAN CORPUSCULAR HEMOGLOBIN CONCENTRATION (G/DL) BY AUTOMATED 32.8 g/dL Normal 32.0-35.0 [facility] Comment on above: Performed By: #### L [id number] #### [facility] ([facility]) [address] [place] [address] Hematocrit (Bld) [Volume fraction] 36.9 % Low 39.0-55.0 [facility] Comment on above: Performed By: #### L [id number] #### [facility] ([facility]) [address] [place] [address] Hemoglobin (Bld) [Mass/Vol] 12.1 g/dL Low 13.0-17.0 [facility] Comment on above: Performed By: #### L [id number] #### [facility] ([facility]) [address] [place] [address] Immature granulocytes (Bld) [#/Vol] 0.05 10*3/uL Normal 0.00-0.20 [facility] Comment on above: Performed By: #### L [id number] #### [facility] ([facility]) [address] [place] [address] Immature granulocytes/100 WBC (Bld) 0.5 % Normal 0.0-1.0 [facility] Comment on above: Performed By: #### L [id number] #### [facility] ([facility]) [address] [place] [address] Lymphocytes (Bld) [#/Vol] 1.77 10*3/uL Normal 1.20-4.00 [facility] Comment on above: Performed By: #### L [id number] #### [facility] ([facility]) [address] [place] [address] Lymphocytes/100 WBC (Bld) 18.3 % Low 20.0-45.0 [facility] Comment on above: Performed By: #### L [id number] #### [facility] ([facility]) [address] [place] [address] MCH (RBC) [Entitic mass] 30.9 pg Normal 27.0-33.0 [facility] Comment on above: Performed By: #### L [id number] #### [facility] ([facility]) [address] [place] [address] MCV (RBC) [Entitic vol] 94.4 fL Normal 82.0-98.0 [facility] Comment on above: Performed By: #### L [id number] #### [facility] ([facility]) [address] [place] [address] Monocytes (Bld) [#/Vol] 0.65 10*3/uL Normal 0.10-1.00 [facility] Comment on above: Performed By: #### L [id number] #### [facility] ([facility]) [address] [place] [address] Monocytes/100 WBC (Bld) 6.7 % Normal 5.0-12.0 [facility] Comment on above: Performed By: #### L [id number] #### [facility] ([facility]) [address] [place] [address] Neutrophils (Bld) [#/Vol] 6.60 10*3/uL Normal 1.60-7.60 [facility] Comment on above: Performed By: #### L [id number] #### [facility] ([facility]) [address] [place] [address] Neutrophils/100 WBC (Bld) 68.4 % Normal 40.0-72.0 [facility] Comment on above: Performed By: #### L [id number] #### [facility] ([facility]) [address] [place] [address] NRBC (PER 100 WBCS) BY AUTOMATED COUNT 0.0 % Normal 0 [facility] Comment on above: Performed By: #### L [id number] #### [facility] ([facility]) [address] [place] [address] PLATELETS (10*3/UL) IN BLOOD AUTOMATED COUNT 227 10*3/uL Normal 150-400 [facility] Comment on above: Performed By: #### L [id number] #### [facility] ([facility]) [address] [place] [address] RBC (Bld) [#/Vol] 3.91 10*6/uL Low 4.20-5.70 [facility] Comment on above: Performed By: #### L [id number] #### [facility] ([facility]) [address] [place] [address] WBC (Bld) [#/Vol] 9.66 10*3/uL Normal 4.00-10.60 [facility] Comment on above: Performed By: #### L [id number] #### [facility] ([facility]) [address] [place] [address] HISTOLOGY - TISSUE EXAMon LAB AP ADDENDUM 1 Normal [facility] Comment on above: Order Comment: Pre-o p diagnosis:Enlarged lymph node [R59.9] Result Comment: Stai n for Treponema pallidum is negative. Addendum electronically signed by Jade Esquivel MD on 09/13/2024 at 10:58 AM Performed By: #### L [id number] ####[facility] ([facility])[address] [place] [address] LAB AP ASR DISCLAIMER The interpretation of [...] the Clinical Laboratory Improvement Amendments of 1998. Normal [facility] Comment on above: Order Comment: Pre-o p diagnosis:Enlarged lymph node [R59.9] Performed By: #### L [id number] ####[facility] ([facility])[address] [facility] [place] [address] LAB AP CASE REPORT Normal [facility] Comment on above: Order Comment: Pre-o p diagnosis:Enlarged lymph node [R59.9] Result Comment: Surg ical Pathology Case: [id number] Authorizing Provider: Erick Carter MD Collected: 08/22/2024 1656 Ordering Location: [facility] Main Operating Room Received: 08/24/2024 0812 Pathologist: Jade Esquivel MD Specimens: A) - Lymph Node, right groin, frozen section B) - Lymph Node, Right groim, for permanent Performed By: #### L [id number] ####[facility] ([facility])[address] [place] [address] LAB AP CLINICAL INFORMATION [facility] Comment on above: Order Comment: Pre-o p diagnosis:Enlarged lymph node [R59.9] Result Comment: Post -Op Diagnoses R59.9 - Enlarged lymph node [ICD-10-CM] R59.0 - Inguinal lymphadenopathy [ICD-10-CM] Performed By: #### L [id number] ####[facility] ([facility])[address] [place] [address] LAB AP DIAGNOSIS COMMENT The morphologic features of the lymph node are favored to represent a reactive etiology; there is no evidence of malignancy in the lymph node submitted. A Treponema pallidum stain is pending; results will be reported in an addendum. [facility] Comment on above: Order Comment: Pre-o p diagnosis:Enlarged lymph node [R59.9] Performed By: #### L [id number] ####[facility] ([facility])[address] [place] [address] LAB AP FLOW CYTOMETRY SUMMARY [facility] Comment on above: Order Comment: Pre-o p diagnosis:Enlarged lymph node [R59.9] Result Comment: Flow cytometry studies were completed at [facility] Laboratories: Leukemia/lymphoma phenotyping evaluation by flow cytometry: - No abnormal myeloid, B-cell, T-cell, NK-cell or plasma cell population is identified. Performed By: #### L [id number] ####[facility] ([facility])[address] [place] [address] LAB AP GROSS DESCRIPTION A. Lymph Node. [facility] Comment on above: Order Comment: Pre-o p diagnosis:Enlarged lymph node [R59.9] Result Comment: Rece ived fresh labeled Evans Amosski, Lymph node are two soft tissue fragments, 1 x 0.5 x 0.3 cm and 2 x 1 x 0.5 cm. The fragments are burns-white and burns-pink, respectively. Each fragment is sectioned to reveal pale granular cut surfaces. Two air-dried touch prep slides are prepared from the smaller fragment and a third is prepared from the larger fragment for Kwik-Dif stain. A portion of tissue is placed in RPMI media and sent for flow cytometric studies. The remainder of the specimen is entirely submitted in 4 cassettes. Lisette North, Pathologists' Manager [employer] B. Lymph Node. Received in formalin labeled Evans Forte, Right groin is a burns rubbery lobulated bulky portion of partially shaggy tissue, 2.8 x 2 x 1.7 cm. The specimen is serially sectioned to reveal burns finely granular uniform cut surfaces and is entirely submitted in 6 cassettes. Lisette North, Pathologists' Manager [employer] Performed By: #### L [id number] ####[facility] ([facility])[address] [place] [address] LAB AP MICROSCOPIC DESCRIPTION Microscopic examination performed. [facility] Comment on above: Order Comment: Pre-o p diagnosis:Enlarged lymph node [R59.9] Performed By: #### L [id number] ####[facility] ([facility])[address] [facility] [place] [address] LAB AP REPORT FINAL DIAGNOSIS NARRATIVE Normal [facility] Comment on above: Order Comment: Pre-o p diagnosis:Enlarged lymph node [R59.9] Result Comment: A-B. Lymph node, right groin, excision: - Lymph node with reactive follicular hyperplasia, plasmacytosis and focally thickened capsule. - No evidence of malignancy. - See comment. Performed By: #### L [id number] ####[facility] ([facility])[address] [place] [address] HPon 08-22-2024 HP H&P reviewed. The patient was examined and there are no changes to the H&P. Normal [facility] Labon 08-22-2024 Lab [id number] Evans Forte 1970 Date Provider Department Center 08/22/2024 2245-[facility] OPD LAB RESOURCE [facility] OPD MA Medical Family History Problem Relation Age of Onset [...] Sister Maternal Grandmother Daughter Father's Brother Alive Normal [facility] OPNOTEon 08-22-2024 OPNOTE EXCISIONAL RIGHT TYRONE IN LYMPH NODE BIOPSY (R) Operative Note Date: 08/22/2024 Location: [facility] OR Name: Evans Forte, : 1970, Diagnosis [...] Source Type Tests Collected By Collected At Frozen? Priority Lab ID 1 Lymph Node Tissue LEUKEMIA, LYMPHOMA IMMUNOPHENOTYPING, FLOW CYTOMETRY Erick Carter MD 08/22/241655 Routine [id number] Description: right groin flow cytometry A Lymph Node Tissue HISTOLOGY - TISSUE EXAM Erick Carter MD 08/22/241655 Routine Description: right groin permanent Staff: Flavor Room Worker: Aristeo Lisa RN Scrub Person: Waldemar Kelsey [...] instrument count and sponge count were correct. Normal [facility] POCT GLUCOSE METER UNSOLICIT ED RESULTSon 08-22-2024 Glucose [Mass/Vol] 97 mg/dL Normal 70-105 [facility] Comment on above: Order Comment: Waive d Testing in the ED is performed under the ED CLIA certificate #[id number]. Result Comment: skir by Performed By: #### L [id number] #### [facility] ([facility]) [address] [place] [address] Glucose [Mass/Vol] 115 mg/dL High 70-105 [facility] Comment on above: Order Comment: Waive d Testing in the ED is performed under the ED CLIA certificate #[id number]. Result Comment: dhol as Performed By: #### L [id number] #### [facility] ([facility]) [address] [place] [address] PROTIME-INRon 08-22-2024 INR IN PPP BY COAGULATION ASSAY 1.01 Normal 0.90-1.10 [facility] Comment on above: Result Comment: ACCC P RECOMMENDED INR FOR [place] THERAPY CONDITION INR PROPHYLAXIS OF VENOUS THROMBOSIS 2-3 (HIGH-RISK SURGERY) TREATMENT OF VENOUS THROMBOSIS 2-3 TREATMENT OF PULMONARY EMBOLISM 2-3 PREVENTION OF SYSTEMIC EMBOLISM: 2-3 ACUTE MYOCARDIAL INFARCTION TISSUE HEART VALVES VALVULAR HEART DISEASE ATRIAL FIBRILLATION RECURRENT SYSTEMIC EMBOLISM MECHANICAL HEART VALVE 2.5-3.5 FROM: ORAL ANTICOAGULANTS. MECHANISM OF ACTION, CLINICAL EFFECTIVENESS, AND OPTIMAL THERAPEUTIC RANGE. CHEST 1995;108:231S-246S. Performed By: #### L [id number] #### [facility] ([facility]) [address] [place] [address] PROTHROMBIN TIME (PT) IN PPP BY COAGULATION ASSAY 13.3 Seconds Normal 12.3-14.8 [facility] Comment on above: Performed By: #### L [id number] #### [facility] ([facility]) [address] [place] [address] Orders Onlyon 08-18-2024 Orders Only [id number] Evans Forte 1970 M Date Provider Department Center 08/18/2024 NANCY REYES [facility] Family History Problem Relation Age of Onset [...] Sister Maternal Grandmother Daughter Father's Brother Alive Normal [facility] Consulton 08-08-2024 Consult [id number] Jama 1970 M Date Provider Department Center 08/08/2024 ERICK MATOS [facility] SURG Second Fl Family History Problem Relation [...] Grandmother Daughter Father's Brother Alive Level of Service:17577 [place] OFFICE/OUTPATIENT NEW LOW MDM 30 MINUTES Reason for Visit and Comments: Consult [484] - Patient is here today for enlarged lymph nodes and is s/p PET scan. Normal [facility] HPon 08-08-2024 HP Subjective Patient ID: Evans Laurenti is a 54 y.o. male who presents [...] skull base to mid thigh FDG Order: [id number] Status: Final result Visible to patient: Yes (seen) Dx: Enlarged lymph nodes; Pre-transplant ... 0 Result Notes Details Reading Physician Reading Date Result Priority Alonso Jaffe MD [phone] 07/31/2024 Routine Narrative & Impression History: Pretransplant [...] CT abdomen pelvis wo renal recipient Order: [id number] Status: Edited Result - FINAL Visible to patient: Yes (seen) Dx: Pre-transplant evaluation for kidney ... 0 Result Notes Details Reading Physician Reading Date Result Priority Alonso Sampson MD [phone] 07/12/2024 Routine Addenda Addendum: Note that there [...] common, internal, and external iliac arteries. No suspiciou (more content not included)... Normal [facility] 36on 07-31-2024 36 Patient contacted th e [facility] regarding the results of his PET/CT that he could see results of on his mychart. Patient was concerned with his abnormal results and what he needed to do about them. TC reviewed results with Dr. Moreland and per his verbal he was referred to general surgery for lymph node excision and biopsy and referred to Hematology oncology. TC also explained to patient that his chart will be put in inactive status until he is worked up for the lesion and it is determined the diagnosis and required wait time. Patient verbalized understanding. Maria De Jesus Rutledge RN [facility] POCT GLUCOSE METER UNSOLICIT ED RESULTSon 07-28-2024 Glucose [Mass/Vol] 125 mg/dL High 70-105 [facility] Comment on above: Order Comment: Waive d Testing in the ED is performed under the ED CLIA certificate #[id number]. Result Comment: solange [id number] Performed By: #### L [id number] ####[facility] ([facility]ER)[address] [place] [address] HPon 07-27-2024 History Of Present Illness Evans Forte is [...] a past medical history of Adrenal nodule (CMS/HCC), Anemia, Anxiety, Charcot foot due to diabetes mellitus (CMS/HCC), Chronic sinusitis, COVID-19, Diabetic foot ulcers (CMS/HCC), Diabetic polyneuropathy (CMS/HCC), Diabetic retinopathy (CMS/HCC), ED (erectile dysfunction), ESRD (end stage renal disease) (CMS/HCC) (11/23/2022), GERD (gastroesophageal reflux disease), Glaucoma, History of tobacco use, Hyperlipidemia, Hypertension, Hypogonadism in male, Hypothyroidism, Insomnia, Neuropathy, Obesity, Osteomyelitis of ankle or foot, left, acute (CMS/HCC), Pancreatitis, Past history of chewing tobacco use, Peripheral artery disease (CMS/HCC), Proteinuria, Sleep apnea, Type 2 diabetes mellitus (CMS/[facility]), and Vitamin D deficiency. [...] Adhesive tape-silicones, Latex, Vancomycin, Adhesive, Haloperidol, and Kimble oil Medications Medications Prior to Admission Medication [...] Psychiatric/Behavioral: Negative for depression. Physical Exam Constitutional: Appearan (more content not included)... Normal [facility] Johnathan 07-27-2024 EUGENIE RN educated pt on d/ c instructions. This included: site care, limited physical activity, [...] off of unit with all of belongings. [facility] NURSNOTE .dc [facility] Office Visiton 07-25-2024 Follow-up visit [id number] Evans Forte 1970 M Date Provider Department Center 07/25/2024 [facility]ick [facility] Family History Problem Relation Age of Onset Breast cancer Mother Comments: age 53, METS to brain Heart disease Father Heart attack Father Comments: age 26 No Known Problems Sister Comments: half-sister Crohn's disease Daughter Comments: perforated bowel Family Status - Relation Status Age at Mother Father Sister Daughter Level of Service:[id number] [place] OFFICE/OUTPATIENT NEW [facility] 30 MINUTES [facility] Documentationon 07-14-2024 Documentation [id number] Evans Forte 1970 M Date Provider Department Center 07/14/2024 [id number]-EWUNMLOSHMMELINDA KEEN None Family History Problem Relation Age of Onset Breast cancer Mother Comments: age 53, METS to brain Heart disease Father Heart attack Father Comments: age 26 No Known Problems Sister Comments: half-sister Crohn's disease Daughter Comments: perforated bowel Family Status - Relation Status Age at Mother Father Sister Daughter [facility] 36on 07-12-2024 36 TC contacted patient regarding CT results. No answer. Left voicemail. Melinda Keen, RN [facility] B-TYPE NATRIURETIC PEPTIDEon 07-11-2024 Natriuretic peptide B (Bld) [Mass/Vol] 43 pg/mL Normal 0-100 [facility] Comment on above: Performed By: #### L [id number] ####[facility] ([facility])[address] [place] [address] BILIRUBIN, DIRECTon 07-11-20 24 Magnesium [Mass/Vol] 0.1 mg/dL Normal 0-0.2 [facility] Comment on above: Performed By: #### L [id number] ####[facility] (BEAKER)[address] [place] [address] CBC WITH AUTO DIFFERENTIALon 07-11-2024 Basophils (Bld) [#/Vol] 0.08 10*3/uL Normal 0.00-0.20 [facility] Comment on above: Performed By: #### L [id number] ####[facility] ([facility]ER)[address] [place] [address] Basophils/100 WBC (Bld) 1.0 % Normal 0.0-1.0 [facility] Comment on above: Performed By: #### L [id number] ####[facility] (BEAKER)[address] [place] [address] Eosinophils (Bld) [#/Vol] 0.30 10*3/uL Normal 0.00-0.50 [facility] Comment on above: Performed By: #### L [id number] ####[facility] (BEAKER)[address] [place] [address] Eosinophils/100 WBC (Bld) 3.6 % Normal 0.0-6.0 [facility] Comment on above: Performed By: #### L [id number] ####[facility] (BEAKER)[address] [place] [address] Erythrocyte distribution width (RBC) [Ratio] 14.6 % Normal 11.5-15.0 [facility] Comment on above: Performed By: #### L [id number] ####[facility] (BEAKER)[address] [place] [address] ERYTHROCYTE MEAN CORPUSCULAR HEMOGLOBIN CONCENTRATION (G/DL) BY AUTOMATED 32.8 g/dL Normal 32.0-35.0 [facility] Comment on above: Performed By: #### L [id number] ####[facility] (BEAKER)[address] [place] [address] Hematocrit (Bld) [Volume fraction] 36.3 % Low 39.0-55.0 [facility] Comment on above: Performed By: #### L [id number] ####[facility] (BE[facility]ER)[address] [place] [address] Hemoglobin (Bld) [Mass/Vol] 11.9 g/dL Low 13.0-17.0 [facility] Comment on above: Performed By: #### L [id number] ####[facility] ([facility])[address] [place] [address] Immature granulocytes (Bld) [#/Vol] 0.08 10*3/uL Normal 0.00-0.20 [facility] Comment on above: Performed By: #### L [id number] ####[facility] ([facility])[address] [place] [address] Immature granulocytes/100 WBC (Bld) 1.0 % Normal 0.0-1.0 [facility] Comment on above: Performed By: #### L [id number] ####[facility] ([facility])[address] [place] [address] Lymphocytes (Bld) [#/Vol] 2.21 10*3/uL Normal 1.20-4.00 [facility] Comment on above: Performed By: #### L [id number] ####[facility] (BEAKER)[address] [place] [address] Lymphocytes/100 WBC (Bld) 26.5 % Normal 20.0-45.0 [facility] Comment on above: Performed By: #### L [id number] ####[facility] (BE[facility]ER)[address] [place] [address] MCH (RBC) [Entitic mass] 30.1 pg Normal 27.0-33.0 [facility] Comment on above: Performed By: #### L [id number] ####[facility] (BEAKER)[address] [place] [address] MCV (RBC) [Entitic vol] 91.9 fL Normal 82.0-98.0 [facility] Comment on above: Performed By: #### L [id number] ####[facility] ([facility])[address] [place] [address] Monocytes (Bld) [#/Vol] 0.82 10*3/uL Normal 0.10-1.00 [facility] Comment on above: Performed By: #### L [id number] ####[facility] (BE[facility]ER)[address] [place] [address] Monocytes/100 WBC (Bld) 9.8 % Normal 5.0-12.0 [facility] Comment on above: Performed By: #### L [id number] ####[facility] (BE[facility]ER)[address] [place], [place] [address] Neutrophils (Bld) [#/Vol] 4.84 10*3/uL Normal 1.60-7.60 [facility] Comment on above: Performed By: #### L [id number] ####[facility] ([facility]ER)[address] [place], [place] [address] Neutrophils/100 WBC (Bld) 58.1 % Normal 40.0-72.0 [facility] Comment on above: Performed By: #### L [id number] ####[facility] (BEAKER)[address] [place], [place] [address] NRBC (PER 100 WBCS) BY AUTOMATED COUNT 0.0 % Normal 0 [facility] Comment on above: Performed By: #### L [id number] ####[facility] (BEAKER)[address] [place], [place] [address] PLATELETS (10*3/UL) IN BLOOD AUTOMATED COUNT 331 10*3/uL Normal 150-400 [facility] Comment on above: Performed By: #### L [id number] ####[facility] (BE[facility]ER)[address] [place], [place] [address] RBC (Bld) [#/Vol] 3.95 10*6/uL Low 4.20-5.70 [facility] Comment on above: Performed By: #### L [id number] ####[facility] (BE[facility]ER)[address] [place] [address] WBC (Bld) [#/Vol] 8.33 10*3/uL Normal 4.00-10.60 [facility] Comment on above: Performed By: #### L [id number] ####[facility] ([facility])[address] [place] [address] COMPREHENSIVE METABOLIC PANE Nick 07-11-2024 Albumin [Mass/Vol] 4.2 g/dL Normal 3.5-5.7 [facility] Comment on above: Performed By: #### L [id number] ####[facility] ([facility])[address] [place] [address] ALP [Catalytic activity/Vol] 115 U/L High 34-104 [facility] Comment on above: Performed By: #### L [id number] ####[facility] ([facility])[address] [place] [address] ALT [Catalytic activity/Vol] 12 U/L Normal 7-52 [facility] Comment on above: Performed By: #### L [id number] ####[facility] ([facility])[address] [place] [address] Anion gap [Moles/Vol] 14 mmol/L Normal 7-20 [facility] Comment on above: Performed By: #### L [id number] ####[facility] ([facility])[address] [place] [address] AST [Catalytic activity/Vol] 8 U/L Low 13-39 [facility] Comment on above: Performed By: #### L [id number] ####[facility] ([facility])[address] [place] [address] Bilirubin [Mass/Vol] 0.5 mg/dL Normal 0.3-1.0 [facility] Comment on above: Performed By: #### L [id number] ####[facility] ([facility])[address] [place] [address] Calcium [Mass/Vol] 9.4 mg/dL Normal 8.6-10.3 [facility] Comment on above: Performed By: #### L [id number] ####[facility] ([facility])[address] [place] [address] Chloride [Moles/Vol] 98 mmol/L Normal 98-107 [facility] Comment on above: Performed By: #### L [id number] ####[facility] ([facility])[address] [place] [address] CO2 [Moles/Vol] 31 mmol/L Normal 21-31 [facility] Comment on above: Performed By: #### L [id number] ####[facility] ([facility])[address] [place] [address] Creatinine [Mass/Vol] 7.27 mg/dL High 0.70-1.30 [facility] Comment on above: Performed By: #### L [id number] ####[facility] ([facility])[address] [place] [address] GLOMERULAR FILTRATION RATE ML/MIN/1.73 SQ M.PREDICTED 8.3 mL/min/1.73m*2 Low >60.0 [facility] Comment on above: Result Comment: [facility]???s estimated glomerular filtration rate (eGFR) will [...] one group of individuals. Performed By: #### L [id number] ####[facility] ([facility])[address] [place] [address] Glucose [Mass/Vol] 216 mg/dL High 70-100 [facility] Comment on above: Performed By: #### L [id number] ####[facility] ([facility])[address] [place] [address] Potassium [Moles/Vol] 4.1 mmol/L Normal 3.5-5.1 [facility] Comment on above: Performed By: #### L [id number] ####[facility] ([facility])[address] [place] [address] Protein [Mass/Vol] 7.6 g/dL Normal 6.0-8.3 [facility] Comment on above: Performed By: #### L [id number] ####[facility] ([facility]ER)[address] [place] [address] Sodium [Moles/Vol] 139 mmol/L Normal 136-145 [facility] Comment on above: Performed By: #### L [id number] ####[facility] ([facility]ER)[address] [place] [address] Urea nitrogen [Mass/Vol] 53 mg/dL High 7-25 [facility] Comment on above: Performed By: #### L [id number] ####[facility] ([facility]ER)[address] [place] [address] UREA NITROGEN/CREATININE (MASS RATIO) IN SER/PLAS 7.[address] [facility] Comment on above: Performed By: #### L [id number] ####[facility] ([facility]ER)[address] [place] [address] CT ABDOMEN PELVIS WO RENAL R ECIPIENTon 07-11-2024 CT ABDOMEN PELVIS WO RENAL RECIPIENT Addendum: Note that there is no hydronephrosis or urinary tract calculi. Electronically signed: Alonso Sampson. CT ABDOMEN AND PELVIS WITHOUT CONTRAST COMPARISON: [...] as reasonably achievable. Electronically signed: Alonso Sampson. Normal [facility] HEMOGLOBIN A1Con 07-11-2024 Glucose [Mass/Vol] 166 mg/dL Normal [facility] Comment on above: Performed By: #### L [id number] #### [facility] ([facility]ER) [address] [place] [address] HbA1c (Bld) [Mass fraction] 7.4 % High 4.0-6.0 [facility] Comment on above: Performed By: #### L [id number] #### [facility] ([facility]) [address] [place] [address] HEPATITIS A ANTIBODY, IGMon 07-11-2024 HEPATITIS A VIRUS IGM AB PRESENCE IN SER/PLAS Non-Reactive Normal Nonreactive [facility] Comment on above: Performed By: #### L [id number] #### [facility] ([facility]) [address] [place] [address] HEPATITIS B CORE ANTIBODY, I GMon 07-11-2024 HEPATITIS B VIRUS CORE IGM AB PRESENCE IN SER/PLAS BY IMMUNOASSY Negative Normal Negative [facility] Comment on above: Result Comment: INTE RPRETIVE INFORMATION: Hepatitis B Core Ab, IgM This assay should not be used for blood donor screening, associated re-entry protocols, or for screening Human Cells, Tissues and Cellular and Tissue-Based Products (HCT/P). Performed By: [place] [address] Multifold Operator: Aristeo Salgado MD, PhD CLIA Number: [id number] Performed By: #### L [id number] #### [facility] ([facility]) [address] [place] [address] HEPATITIS B CORE ANTIBODY, T OTALon 07-11-2024 HEPATITIS B VIRUS CORE AB (PRESENCE) IN SER/PLAS BY IMM Non-Reactive Normal Nonreactive [facility] Comment on above: Performed By: #### L [id number] ####[facility] ([facility])[address] [place] [address] HEPATITIS B SURFACE ANTIBODY QUANTon 07-11-2024 HEPATITIS B VIRUS SURFACE AB (MIU/ML) IN SERUM 1.48 mIU/mL [facility] Comment on above: Result Comment: INTE RPRETATION: NONREACTIVE <8.00 mIU/mL INDETERMINATE 8.00 - 12.00 mIU/mL REACTIVE >12 mIU/mL Performed By: #### L [id number] #### [facility] ([facility]) [address] [place] [address] HEPATITIS B SURFACE ANTIGENo n 07-11-2024 HEPATITIS B VIRUS SURFACE AG PRESENCE IN SERUM Non-Reactive Normal Nonreactive [facility] Comment on above: Performed By: #### L [id number] ####[facility] ([facility])[address] [place] [address] HEPATITIS C ANTIBODYon 07-11 HEPATITIS C VIRUS AB PRESENCE IN SERUM Non-Reactive Normal Nonreactive [facility] Comment on above: Performed By: #### L [id number] ####[facility] ([facility])[address] [place] [address] HIV COMBO 4Gon 07-11-2024 HIV COMBO 4G Negative Normal Negative [facility] Comment on above: Performed By: #### L [id number] ####[facility] ([facility])[address] [place] [address] HLA ABC CLASS I TYPINGon A*-[address] [facility] Comment on above: Performed By: #### L [id number] #### [facility] ([facility]) [address] [place] [address] A*-2 25 [facility] Comment on above: Performed By: #### L [id number] #### [facility] ([facility]) [address] [place] [address] B*-1 44 [facility] Comment on above: Performed By: #### L [id number] #### [facility] ([facility]) [address] [place] [address] B*-2 57 [facility] Comment on above: Performed By: #### L [id number] #### [facility] ([facility]) [address] [place] [address] BW*-1 4 [facility] Comment on above: Performed By: #### L [id number] #### [facility] ([facility]) [address] [place] [address] C*-1 5 [facility] Comment on above: Performed By: #### L [id number] #### [facility] ([facility]) [address] [place] [address] C*-2 6 [facility] Comment on above: Performed By: #### L [id number] #### [facility] ([facility]) [address] [place] [address] HLA ABC CLASS I TYPING TEST METHOD Class I typing by PCR-SSOP Lumine[employer] [facility] Comment on above: Performed By: #### L [id number] #### [facility] ([facility]) [address] [place] [address] HLA ABC TESTED DATE [facility] Comment on above: Performed By: #### L [id number] #### [facility] ([facility]) [address] [place] [address] CLASS II TYPINGon DPB1*-1 04:01 [facility] Comment on above: Performed By: #### L [id number] #### [facility] ([facility]) [address] [place] [address] DPB1*-2 04:01 [facility] Comment on above: Performed By: #### L [id number] #### [facility] ([facility]ER) [address] [place] [address] DQA1*-1 01 [facility] Comment on above: Performed By: #### L [id number] #### [facility] ([facility]) [address] [place] [address] DQA1*-2 02 [facility] Comment on above: Performed By: #### L [id number] #### [facility] ([facility]) [address] [place] [address] DQB1*-1 9 [facility] Comment on above: Performed By: #### L [id number] #### [facility] ([facility]ER) [address] [place] [address] DQB1*-2 5 [facility] Comment on above: Performed By: #### L [id number] #### [facility] ([facility]ER) [address] [place] [address] DRB1*-1 1 [facility] Comment on above: Performed By: #### L [id number] #### [facility] ([facility]) [address] [place] [address] DRB1*-2 7 [facility] Comment on above: Performed By: #### L [id number] #### [facility] ([facility]) [address] [place] [address] DRB4*-2 53N [facility] Comment on above: Performed By: #### L [id number] #### [facility] ([facility]) [address] [place] [address] HLA COMMENTS Due to available spa ce, 53N represents the DRB4*01:03:01:02N null allele. Normal [facility] Comment on above: Performed By: #### L [id number] #### [facility] ([facility]) [address] [place] [address] CLASS II TYPING TEST METHOD Class II typing by PCR-SSOP Luminex Normal [facility] Comment on above: Performed By: #### L [id number] #### [facility] ([facility]) [address] [place] [address] TESTED DATE Normal Un [facility] Comment on above: Performed By: #### L [id number] #### [facility] ([facility]) [address] [place] [address] LIPID PANELon 07-11-2024 CHOL/HDL 5.5 mg/dL Normal [facility] Comment on above: Performed By: #### L [id number] ####[facility] ([facility])[address] [facility] [place] [address] Cholesterol [Mass/Vol] 186 mg/dL Normal 120-200 [facility] Comment on above: Performed By: #### L [id number] ####[facility] ([facility])[address] [place] [address] Magnesium [Mass/Vol] 237 mg/dL High 40-149 [facility] Comment on above: Result Comment: TRIG LYCERIDE REFERENCE RANGE: 20 YEARS AND OLDER CARDIOVASCULAR RISK LESS THAN 150 mg/dL LOW RISK 150 TO 199 mg/dL BORDERLINE RISK 200 mg/dL AND GREATER HIGH RISK Performed By: #### L [id number] ####[facility] ([facility])[address] [facility] [place] [address] Magnesium [Mass/Vol] 105 mg/dL Normal 0-160 [facility] Comment on above: Performed By: #### L [id number] ####[facility] ([facility])[address] [place] [address] Magnesium [Mass/Vol] 34 mg/dL Normal 23-92 [facility] Comment on above: Performed By: #### L [id number] ####[facility] (BEAKER)[address] [facility] [place] [address] NON HDL CHOL. (LDL+VLDL) [address] [facility] Comment on above: Performed By: #### L [id number] ####[facility] (BEAKER)[address] [facility] [place] [address] TOTAL VLDL-C 47 mg/dL High 0-40 [facility] Comment on above: Performed By: #### L [id number] ####[facility] (BEAKER)[address] [place] [address] PANEL REACTIVE ANTIBODYon HOLD SPECIMEN Hold for add-ons. Normal [facility] Comment on above: Result Comment: Auto resulted. Performed By: #### L [id number] ####[facility] TISSUE TYPING (HISTOTRAC)[address] [place] [address] [place] PROTIME-INRon 07-11-2024 INR IN PPP BY COAGULATION ASSAY 1.08 Normal 0.90-1.10 [facility] Comment on above: Result Comment: ACCC P RECOMMENDED INR FOR [facility] THERAPY CONDITION INR PROPHYLAXIS OF VENOUS THROMBOSIS 2-3 (HIGH-RISK SURGERY) TREATMENT OF VENOUS THROMBOSIS 2-3 TREATMENT OF PULMONARY EMBOLISM 2-3 PREVENTION OF SYSTEMIC EMBOLISM: 2-3 ACUTE MYOCARDIAL INFARCTION TISSUE HEART VALVES VALVULAR HEART DISEASE ATRIAL FIBRILLATION RECURRENT SYSTEMIC EMBOLISM MECHANICAL HEART VALVE 2.5-3.5 FROM: ORAL ANTICOAGULANTS. MECHANISM OF ACTION, CLINICAL EFFECTIVENESS, AND OPTIMAL THERAPEUTIC RANGE. CHEST 1995;108:231S-246S. Performed By: #### L [id number] ####[facility] ([facility])[address] [place] [address] PROTHROMBIN TIME (PT) IN PPP BY COAGULATION ASSAY 14.0 Seconds Normal 12.3-14.8 [facility] Comment on above: Performed By: #### L [id number] ####[facility] ([facility])[address] [place] [address] PSA, SCREENINGon 07-11-2024 PROSTATE SPECIFIC AG (NG/ML) IN SER/PLAS 1.4 ng/mL Normal 0.4-4 [facility] Comment on above: Performed By: #### L [id number] ####[facility] ([facility])[address] [place] [address] SINGLE ANTIGEN CLASS Ion CLASS I LOW RISK AB A:23 29 B:8 Normal [facility] Comment on above: Performed By: #### L [id number] #### [facility] ([facility]) [address] [place] [address] CLASS I SPECIFICITY AB A:11 B:76 [facility] Comment on above: Performed By: #### L [id number] #### [facility] ([facility]) [address] [place] [address] CLASS I TESTED DATE Normal [facility] Comment on above: Performed By: #### L [id number] #### [facility] ([facility]) [address] [place] [address] SINGLE ANTIGEN CLASS 1 TEST METHOD Class I Single Antigen Normal [facility] Comment on above: Performed By: #### L [id number] #### [facility] ([facility]) [address] [place] [address] SINGLE ANTIGEN CLASS IIon CLASS II LOW RISK AB DRw:53 Normal [facility] Comment on above: Performed By: #### L [id number] #### [facility] TISSUE TYPING (HISTOTRAC) [address] [place] [address] [place] CLASS II TESTED DATE [id number] [facility] Comment on above: Performed By: #### L [id number] #### [facility] TISSUE TYPING (HISTOTRAC) [address] [place] [address] [place] CPRA 12 [facility] Comment on above: Performed By: #### L [id number] #### [facility] TISSUE TYPING (HISTOTRAC) [address] [place] [address] [place] Performed By: #### L [id number] #### [facility] (BEAKER) [address] [place] [address] SIGNED BY Signed by Delano betancourt [facility] HEATHER(ASCP), System Controller Transplant Immunology [facility] Comment on above: Performed By: #### L [id number] #### [facility] TISSUE TYPING (HISTOTRAC) [address] [place] [address] [facility] Performed By: #### L [id number] #### [facility] (BEAKER) [address] [place] [address] Result Comment: Clas s I Antigen Microbeads SINGLE ANTIGEN CLASS 2 TEST METHOD Class II Single Antigen Normal [facility] Comment on above: Result Comment: Clas s II Antigen Microbeads Performed By: #### L [id number] #### [facility] TISSUE TYPING (HISTOTRAC) [address] [place] [address] [place] TESTOSTERONE, FREE AND TOTAL , AND SHBGon 07-11-2024 SEX HORMONE BINDING GLOBULIN (NMOL/L) IN SER/PLAS 14 nmol/L Low 19-76 [facility] Comment on above: Performed By: #### L [id number] ####[facility] [id number] [place] [address] TESTOSTERONE (NG/DL) IN SER/PLAS 408 ng/dL Normal 193-740 [facility] Comment on above: Performed By: #### L [id number] ####[facility] [employer] [id number] [place] [address] TESTOSTERONE FREE (NG/ML) IN SER/PLAS 122.7 pg/mL Normal 47.0-244.0 [facility] Comment on above: Result Comment: The concentration of free testosterone is derived from a mathematical expression based on the constant for the binding of testosterone to albumin and/or sex hormone binding globulin. Test Performed by [employer] [address] [place] [address] - Released 07/11/2024 18:27 Performed By: #### L [id number] ####[facility] [id number] [place] [address] TYPE AND SCREENon 07-11-[address]24 AB SCREEN Negative Normal [facility] Comment on above: Performed By: #### L [id number] ####[facility] BLOOD BANK, ABO group Nom (Bld) A Normal [facility] Comment on above: Performed By: #### L [id number] ####[facility] BLOOD BANK, RH TYPE IN BLOOD Positive Normal [facility] Comment on above: Performed By: #### L [id number] ####[facility] BLOOD BANK, BASIC METABOLIC PANELon 10- Anion gap [Moles/Vol] 16 mmol/L Normal 7-20 [facility] Comment on above: Performed By: #### L [id number] ####[facility] (BEAKER)[address] [place] [address] Calcium [Mass/Vol] 8.7 mg/dL Normal 8.6-10.3 [facility] Comment on above: Performed By: #### L [id number] ####[facility] (BEAKER)[address] [place] [address] Chloride [Moles/Vol] 101 mmol/L Normal 98-107 [facility] Comment on above: Performed By: #### L [id number] ####[facility] ([facility])[address] [place] [address] CO2 [Moles/Vol] 25 mmol/L Normal 21-31 [facility] Comment on above: Performed By: #### L [id number] ####[facility] (BEAKER)[address] [place] [address] Creatinine [Mass/Vol] 7.29 mg/dL High 0.70-1.30 [facility] Comment on above: Performed By: #### L [id number] ####[facility] ([place])[address] [place] [address] GLOMERULAR FILTRATION RATE ML/MIN/1.73 SQ M.PREDICTED 8.3 mL/min/1.73m*2 Low >[address].0 [facility] Comment on above: Result Comment: [facility]???s estimated glomerular filtration rate (eGFR) will [...] one group of individuals. Performed By: #### L [id number] ####[facility] ([facility])[address] [facility] [place] [address] Glucose [Mass/Vol] 126 mg/dL High 70-100 [facility] Comment on above: Performed By: #### L [id number] ####[facility] ([facility])[address] [place] [address] Potassium [Moles/Vol] 4.4 mmol/L Normal 3.5-5.1 [facility] Comment on above: Performed By: #### L [id number] ####[facility] ([facility])[address] [place] [address] Sodium [Moles/Vol] 138 mmol/L Normal 136-145 [facility] Comment on above: Performed By: #### L [id number] ####[facility] ([facility])[address] [place] [address] Urea nitrogen [Mass/Vol] 67 mg/dL High 7-25 [facility] Comment on above: Performed By: #### L [id number] ####[facility] ([facility])[address] [place] [address] UREA NITROGEN/CREATININE (MASS RATIO) IN SER/PLAS 9.[address] [facility] Comment on above: Performed By: #### L [id number] ####[facility] ([facility])[address] [place] [address] CBC WITH AUTO DIFFERENTIALon 06-22-2024 Basophils (Bld) [#/Vol] 0.03 10*3/uL Normal 0.00-0.20 [facility] Comment on above: Performed By: #### L [id number] ####[facility] ([facility])[address] [place] [address] Basophils/100 WBC (Bld) 0.3 % Normal 0.0-1.0 [facility] Comment on above: Performed By: #### L [id number] ####[facility] ([facility])[address] [place] [address] Eosinophils (Bld) [#/Vol] 0.24 10*3/uL Normal 0.00-0.50 [facility] Comment on above: Performed By: #### L [id number] ####[facility] ([facility])[address] [place] [address] Eosinophils/100 WBC (Bld) 2.1 % Normal 0.0-6.0 [facility] Comment on above: Performed By: #### L [id number] ####[facility] ([facility])[address] [place] [address] Erythrocyte distribution width (RBC) [Ratio] 15.2 % High 11.5-15.0 [facility] Comment on above: Performed By: #### L [id number] ####[facility] ([facility])[address] [place] [address] ERYTHROCYTE MEAN CORPUSCULAR HEMOGLOBIN CONCENTRATION (G/DL) BY AUTOMATED 32.7 g/dL Normal 32.0-35.0 [facility] Comment on above: Performed By: #### L [id number] ####[facility] (BE[facility]ER)[address] [place] [address] Hematocrit (Bld) [Volume fraction] 37.0 % Low 39.0-55.0 [facility] Comment on above: Performed By: #### L [id number] ####[facility] ([facility])[address] [place] [address] Hemoglobin (Bld) [Mass/Vol] 12.1 g/dL Low 13.0-17.0 [facility] Comment on above: Performed By: #### L [id number] ####[facility] ([facility])[address] [place] [address] Immature granulocytes (Bld) [#/Vol] 0.07 10*3/uL Normal 0.00-0.20 [facility] Comment on above: Performed By: #### L [id number] ####[facility] (BE[facility]ER)[address] [place] [address] Immature granulocytes/100 WBC (Bld) 0.6 % Normal 0.0-1.0 [facility] Comment on above: Performed By: #### L [id number] ####[facility] ([facility])[address] [place] [address] Lymphocytes (Bld) [#/Vol] 2.10 10*3/uL Normal 1.20-4.00 [facility] Comment on above: Performed By: #### L [id number] ####[facility] (BE[facility]ER)[address] [place] [address] Lymphocytes/100 WBC (Bld) 18.2 % Low 20.0-45.0 [facility] Comment on above: Performed By: #### L [id number] ####[facility] ([facility])[address] [place] [address] MCH (RBC) [Entitic mass] 30.5 pg Normal 27.0-33.0 [facility] Comment on above: Performed By: #### L [id number] ####[facility] ([facility]ER)[address] [place] [address] MCV (RBC) [Entitic vol] 93.2 fL Normal 82.0-98.0 [facility] Comment on above: Performed By: #### L [id number] ####[facility] ([facility])[address] [place] [address] Monocytes (Bld) [#/Vol] 0.88 10*3/uL Normal 0.10-1.00 [facility] Comment on above: Performed By: #### L [id number] ####[facility] ([facility])[address] [place] [address] Monocytes/100 WBC (Bld) 7.6 % Normal 5.0-12.0 [facility] Comment on above: Performed By: #### L [id number] ####[facility] ([facility])[address] [place] [address] Neutrophils (Bld) [#/Vol] 8.22 10*3/uL High 1.60-7.60 [facility] Comment on above: Performed By: #### L [id number] ####[facility] ([facility])[address] [place] [address] Neutrophils/100 WBC (Bld) 71.2 % Normal 40.0-72.0 [facility] Comment on above: Performed By: #### L [id number] ####[facility] ([facility])[address] [place] [address] NRBC (PER 100 WBCS) BY AUTOMATED COUNT 0.0 % Normal 0 [facility] Comment on above: Performed By: #### L [id number] ####[facility] ([facility])[address] [place] [address] PLATELETS (10*3/UL) IN BLOOD AUTOMATED COUNT 294 10*3/uL Normal 150-400 [facility] Comment on above: Performed By: #### L [id number] ####[facility] ([facility]ER)[address] [place] [address] RBC (Bld) [#/Vol] 3.97 10*6/uL Low 4.20-5.70 [facility] Comment on above: Performed By: #### L [id number] ####[facility] (BEAKER)[address] [place] [address] WBC (Bld) [#/Vol] 11.54 10*3/uL High 4.00-10.60 [facility] Comment on above: Performed By: #### L [id number] ####[facility] ([place])[address] [place] [address] Follow-Upon 06-22-2024 Follow-Up [id number] Evans Forte 1970 M Date Provider Department Center 06/22/2024 [facility] CARD [place] HeartVAS Family History Problem Relation Age of Onset Breast cancer Mother Comments: age 53, METS to brain Heart disease Father Heart attack Father Comments: age 26 No Known Problems Sister Comments: half-sister Crohn's disease Daughter Comments: perforated bowel Family Status - Relation Status Age at Mother Father Sister Daughter Level of Service:40730 [place] OFFICE/OUTPATIENT [facility] MDM 60 MINUTES Reason for Visit and Comments: Cardiac evaluation for transplant [Other] - Follow for abnormal stress done 06/13/[address] [facility] Labon 06-22-2024 Lab [id number] Evans Forte 1970 M Date Provider Department Center 06/22/2024 2245-[facility] OPD LAB RESOURCE [facility] OPD MA Medical C Family History Problem Relation Age of Onset Breast cancer Mother Comments: age 53, METS to brain Heart disease Father Heart attack Father Comments: age 26 No Known Problems Sister Comments: half-sister Crohn's disease Daughter Comments: perforated bowel Family Status - Relation Status Age at Mother Father Sister Daughter Normal [facility] HISTOLOGY - TISSUE EXAMon LAB AP CASE REPORT Normal [facility] Comment on above: Result Comment: Surg ical Pathology Case: [id number] Authorizing Provider: Anya Henley MD Collected: 06/20/2024 1141 Ordering Location: [facility] Received: 06/20/2024 1309 [facility] Pathologist: Carly Beard MD Specimen: Rectum, RECTUM POLYP Performed By: #### L [id number] ####[facility] ([facility])[address] [facility] [place] [address] LAB AP CLINICAL INFORMATION Order Diagnoses [facility] Comment on above: Result Comment: Z12. 11 - Screen for colon cancer [ICD-10-CM] Performed By: #### L [id number] ####[facility] ([facility])[address] [facility] [place] [address] LAB AP GROSS DESCRIPTION A. Rectum. [facility] Comment on above: Result Comment: The specimen is received in formalin in a container labeled Evans Wielywalski and RECTUM POLYP. It consists of 2 burns-butcher, ragged, focally erythematous soft tissue strips, 1.2 x 0.5 cm and 2.3 x 0.5 cm. Also in the container is vegetative/fecal particles and mucoid material that is retained. The specimen is submitted entirely in 1 cassette. Yohana Toscano, student fellow Performed By: #### L [id number] ####[facility] ([facility])[address] [facility] [place] [address] LAB AP MICROSCOPIC DESCRIPTION Microscopic examination performed. [facility] Comment on above: Performed By: #### L [id number] ####[facility] ([facility])[address] [facility] [place] [address] LAB AP REPORT FINAL DIAGNOSIS NARRATIVE [facility] Comment on above: Result Comment: A. C olon, rectal polyp, polypectomy: - Fragments of colonic mucosa with early hyperplastic changes and lymphoid aggregate. - Negative for dysplasia. Performed By: #### L [id number] ####[facility] ([facility])[address] [place] [address] HPon 06-20-2024 HP H&P reviewed. The patient was examined and there are no changes to the H&P. Here for surveillance colonoscopy with hx of multiple and large polyps in 2021 and poor prep. [facility] NURSNOTEon 06-20-2024 NURSNOTE All positioning samaria rakesh removed pt remains supine. Normal [facility] POCT PERFUSION PANEL UNSOLIC ITED RESULTSon 06-20-2024 Glucose [Mass/Vol] 114 mg/dL High 70-105 [facility] Comment on above: Performed By: #### L [id number] ####[facility] ([facility])[address] [place] [address] POCT BASE EXCESS Normal [facility] Comment on above: Performed By: #### L [id number] ####[facility] ([facility])[address] [place] [address] [facility] Comment on above: Performed By: #### L [id number] ####[facility] ([facility])[address] [place] [address] POCT HEMATOCRIT Normal [facility] Comment on above: Performed By: #### L [id number] ####[facility] ([facility])[address] [place] [address] POCT HEMOGLOBIN Normal [facility] Comment on above: Performed By: #### L [id number] ####[facility] ([facility])[address] [place] [address] POCT IONIZED CALCIUM Normal [facility] Comment on above: Performed By: #### L [id number] ####[facility] ([facility] [place])[address] [place] [address] [facility] Comment on above: Performed By: #### L [id number] ####[facility] ([facility])[address] [place] [address] [facility] Comment on above: Performed By: #### L [id number] ####[facility] ([facility])[address] [place] [address] [facility] Comment on above: Performed By: #### L [id number] ####[facility] ([facility])[address] [place] [address] [facility] Comment on above: Performed By: #### L [id number] ####[facility] (BEAKER)[address] [place] [address] [facility] Comment on above: Performed By: #### L [id number] ####[facility] ([facility]AKER)[address] [place] [address] POCT TOTAL CO2 Normal [facility] Comment on above: Performed By: #### L [id number] ####[facility] ([facility]AKER)[address] [place] [address] Potassium [Moles/Vol] 4.4 mmol/L Normal 3.5-4.9 [facility] Comment on above: Performed By: #### L [id number] ####[facility] (BEAKER)[address] [place] [address] Prep for Procedureon 024 Prep for Procedure [id number] Evans Forte 1970 M Date Provider Department Center 06/20/2024 ANYA FERRARO [facility] Family History Problem Relation Age of Onset Breast cancer Mother Comments: age 53, METS to brain Heart disease Father Heart attack Father Comments: age 26 No Known Problems Sister Comments: half-sister Crohn's disease Daughter Comments: perforated bowel Family Status - Relation Status Age at Mother Father Sister Daughter [facility] 36on 06-14-2024 36 Patient called TC to discuss recent cardiac [...] is needed. Patient is to return to community support associate in 2-3 weeks. Patient stated understanding and scheduled his TE Re-eval for 07/11/24 and asked to be added to the cancellation list for any sooner appointments on Tuesdays and . TC confirmed and sent patient, referring MD and dialysis unit a letter. Normal [facility] Orders Onlyon 06-13-2024 Orders Only [id number] JannEvans higuera 1970 M Date Provider Department Center 06/13/2024 ERMIAS MURRAY [facility] Family History Problem Relation Age of Onset Breast cancer Mother Comments: age 53 Heart disease Father Heart attack Father Comments: age 26 No Known Problems Sister Comments: half-sister Crohn's disease Daughter Comments: perforated bowel Family Status - Relation Status Age at Mother Father Sister Daughter Normal [facility] Prep for Procedureon 024 Prep for Procedure [id number] Evans Forte 1970 M Date Provider Department Center 06/13/2024 ANYA [facility] Family History Problem Relation Age of Onset Breast cancer Mother Comments: age 53, METS to brain Heart disease Father Heart attack Father Comments: age 26 No Known Problems Sister Comments: half-sister Crohn's disease Daughter Comments: perforated bowel Family Status - Relation Status Age at Mother Father Sister Daughter [facility] Follow-Upon 05-26-2024 Follow-Up [id number] Evans Forte 1970 M Provider Department Center 05/26/2024 Jose Daniel-[facility] Family History Problem Relation Age of Onset Breast cancer Mother Comments: age 53 Heart disease Father Heart attack Father Comments: age 26 No Known Problems Sister Comments: half-sister Crohn's disease Daughter Comments: perforated bowel Family Status - Relation Status Age at Mother Father Sister Daughter Level of Service:14441 [place] OFFICE/OUTPATIENT ESTABLISHED MOD MDM 30 MIN Reason for Visit and Comments: Follow-up [000178] - Lab results [facility] HPon 05-26-2024 HP Subjective Patient ID: Evans Forte is a 54 y.o. male who presents for Follow-up (Lab results ). HPI 9.20.24 Pt here for office visit with his . Pt established with Dr Clay for hypogonadism, ED and pending Renal Transplant list. Pt is having wound care to right foot at this time. ESRD treated with Dialysis 3 x week locally in [place]. Pt labs reviewed: T Levels: 05/23/24 373 01/05/24: 293; 06/03/23: 330; 04/27/23: 397; 03/25/23: 470; 02/23/23: 556; 11/18/2022; 129 04/07/22 178 Estradial: 05/23/24 5 01/05/24 29; 05/31/23: 17; 03/25/23: 15.4; 02/23/23: 22.6 PSA: 05.23.24 2.3 01/05/24 0.5; 06/03/23: 1.0; 04/27/23: 2.3; [...] instructions Trimix: adverse/side effects. Order fax to [place]. 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 No CP or SOB. No N/V/D. No abd/flank pain. Pt continues with better level of fatigue. 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 Plan: Follow up Trimix Trial with Meds. 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 Urination: - amount of urine made: [...] have kids: No - any previous fertility (more content not included)... Normal [facility] Orders Onlyon 05-24-2024 Orders Only [id number] Evans Forte 1970 M Date Provider Department Center 05/24/2024 691-[facility] M[facility] Family History Problem Relation Age of Onset Breast cancer Mother Comments: age 53 Heart disease Father Heart attack Father Comments: age 26 No Known Problems Sister Comments: half-sister Crohn's disease Daughter Comments: perforated bowel Family Status - Relation Status Age at Mother Father Sister Daughter Normal [facility] CBC WITH AUTO DIFFERENTIALon 05-23-2024 Basophils (Bld) [#/Vol] 0.06 10*3/uL Normal 0.00-0.20 [facility] Comment on above: Performed By: #### L [id number] #### [facility] ([facility]) [address] [place] [address] Basophils/100 WBC (Bld) 0.5 % Normal 0.0-1.0 [facility] Comment on above: Performed By: #### L [id number] #### [facility] ([facility]) [address] [place] [address] Eosinophils (Bld) [#/Vol] 0.36 10*3/uL Normal 0.00-0.50 [facility] Comment on above: Performed By: #### L [id number] #### [facility] ([facility]) [address] [place] [address] Eosinophils/100 WBC (Bld) 3.1 % Normal 0.0-6.0 [facility] Comment on above: Performed By: #### L [id number] #### [facility] ([facility]) [address] [place] [address] Erythrocyte distribution width (RBC) [Ratio] 13.7 % Normal 11.5-15.0 [facility] Comment on above: Performed By: #### L [id number] #### [facility] ([facility]) [address] [place] [address] ERYTHROCYTE MEAN CORPUSCULAR HEMOGLOBIN CONCENTRATION (G/DL) BY AUTOMATED 32.4 g/dL Normal 32.0-35.0 [facility] Comment on above: Performed By: #### L [id number] #### [facility] (BEAKER) [address] [place] [address] Hematocrit (Bld) [Volume fraction] 41.7 % Normal 39.0-55.0 [facility] Comment on above: Performed By: #### L [id number] #### [facility] (BEAKER) [address] [place] [address] Hemoglobin (Bld) [Mass/Vol] 13.5 g/dL Normal 13.0-17.0 [facility] Comment on above: Performed By: #### L [id number] #### [facility] (BE[facility]ER) [address] [facility] [place] [address] Immature granulocytes (Bld) [#/Vol] 0.13 10*3/uL Normal 0.00-0.20 [facility] Comment on above: Performed By: #### L [id number] #### [facility] ([facility]) [address] [place] [address] Immature granulocytes/100 WBC (Bld) 1.1 % High 0.0-1.0 [facility] Comment on above: Performed By: #### L [id number] #### [facility] ([facility]) [address] [facility] [address] Lymphocytes (Bld) [#/Vol] 1.92 10*3/uL Normal 1.20-4.00 [facility] Comment on above: Performed By: #### L [id number] #### [facility] ([facility]) [address] [place] [address] Lymphocytes/100 WBC (Bld) 16.7 % Low 20.0-45.0 [facility] Comment on above: Performed By: #### L [id number] #### [facility] ([facility]) [address] [facility] [address] MCH (RBC) [Entitic mass] 30.1 pg Normal 27.0-33.0 [facility] Comment on above: Performed By: #### L [id number] #### [facility] (BE[facility]ER) [address] [place] [address] MCV (RBC) [Entitic vol] 93.1 fL Normal 82.0-98.0 [facility] Comment on above: Performed By: #### L [id number] #### [facility] (BEAKER) [address] [place] [address] Monocytes (Bld) [#/Vol] 0.79 10*3/uL Normal 0.10-1.00 [facility] Comment on above: Performed By: #### L [id number] #### [facility] (BEAK[facility]) [address] [place] [address] Monocytes/100 WBC (Bld) 6.9 % Normal 5.0-12.0 [facility] Comment on above: Performed By: #### L [id number] #### [facility] (BE[facility]ER) [address] [place] [address] Neutrophils (Bld) [#/Vol] 8.25 10*3/uL High 1.60-7.60 [facility] Comment on above: Performed By: #### L [id number] #### [facility] ([facility]) [address] [place] [address] Neutrophils/100 WBC (Bld) 71.7 % Normal 40.0-72.0 [facility] Comment on above: Performed By: #### L [id number] #### [facility] ([facility]) [address] [place] [address] NRBC (PER 100 WBCS) BY AUTOMATED COUNT 0.0 % Normal 0 [facility] Comment on above: Performed By: #### L [id number] #### [facility] ([facility]) [address] [place] [address] PLATELETS (10*3/UL) IN BLOOD AUTOMATED COUNT 332 10*3/uL Normal 150-400 [facility] Comment on above: Performed By: #### L [id number] #### [facility] ([facility]) [address] [place] [address] RBC (Bld) [#/Vol] 4.48 10*6/uL Normal 4.20-5.70 [facility] Comment on above: Performed By: #### L [id number] #### [facility] ([facility]) [address] [place] [address] WBC (Bld) [#/Vol] 11.51 10*3/uL High 4.00-10.60 [facility] Comment on above: Performed By: #### L [id number] #### [facility] ([facility]) [address] [place] [address] COMPREHENSIVE METABOLIC PANE Nick 05-23-2024 Albumin [Mass/Vol] 4.5 g/dL Normal 3.5-5.7 [facility] Comment on above: Performed By: #### L [id number] ####[facility] ([facility])[address] [place] [address] ALP [Catalytic activity/Vol] 123 U/L High 34-104 [facility] Comment on above: Performed By: #### L [id number] ####[facility] (BEAKER)[address] [place] [address] ALT [Catalytic activity/Vol] 25 U/L Normal 7-52 [facility] Comment on above: Performed By: #### L [id number] ####[facility] (BEAKER)[address] [place] [address] Anion gap [Moles/Vol] 15 mmol/L Normal 7-20 [facility] Comment on above: Performed By: #### L [id number] ####[facility] [facility] [place] [address] AST [Catalytic activity/Vol] 15 U/L Normal 13-39 [facility] Comment on above: Performed By: #### L [id number] ####[facility] ([facility] [place] [address] Bilirubin [Mass/Vol] 0.6 mg/dL Normal 0.3-1.0 [facility] Comment on above: Performed By: #### L [id number] ####[facility] [place] [address] Calcium [Mass/Vol] 9.6 mg/dL Normal 8.6-10.3 [facility] Comment on above: Performed By: #### L [id number] ####[facility] [place] [address] Chloride [Moles/Vol] 98 mmol/L Normal 98-107 [facility] Comment on above: Performed By: #### L [id number] ####[facility] [place] [address] CO2 [Moles/Vol] 30 mmol/L Normal 21-31 [facility] Comment on above: Performed By: #### L [id number] ####[facility] [place] [address] Creatinine [Mass/Vol] 6.78 mg/dL High 0.70-1.30 [facility] Comment on above: Performed By: #### L [id number] ####[facility] ([facility])[address] [place] [address] GLOMERULAR FILTRATION RATE ML/MIN/1.73 SQ M.PREDICTED 9.1 mL/min/1.73m*2 Low >60.0 [facility] Comment on above: Result Comment: [facility]???s estimated glomerular filtration rate (eGFR) will [...] one group of individuals. Performed By: #### L [id number] ####[facility] [place] [address] Glucose [Mass/Vol] 161 mg/dL High 70-100 [facility] Comment on above: Performed By: #### L [id number] ####[facility] [place] [address] Potassium [Moles/Vol] 4.0 mmol/L Normal 3.5-5.1 [facility] Comment on above: Performed By: #### L [id number] ####[facility] ([facility])[address] [place] [address] Protein [Mass/Vol] 8.0 g/dL Normal 6.0-8.3 [facility] Comment on above: Performed By: #### L [id number] ####[facility] ([facility])[address] [place] [address] Sodium [Moles/Vol] 139 mmol/L Normal 136-145 [facility] Comment on above: Performed By: #### L [id number] ####[facility] ([facility])[address] [place] [address] Urea nitrogen [Mass/Vol] 41 mg/dL High 7-25 [facility] Comment on above: Performed By: #### L [id number] ####[facility] ([facility])[address] [place] [address] UREA NITROGEN/CREATININE (MASS RATIO) IN SER/PLAS 6.[address] [facility] Comment on above: Performed By: #### L [id number] ####[facility] ([facility])[address] [place] [address] ESTRADIOLon 05-23-2024 ESTRADIOL (PG/ML) IN SER/PLAS 5.0 pg/mL Low 27-52 [facility] Comment on above: Result Comment: FEMALES: Normally menstruating Luteal phase 60-232 Follicular phase 31-90 Midcycle phase 60-533 Postmenopausal (untreated) <138 Fulvestrant treatment will show an increased estradiol concentration with this methodology. Alternate methodologies are available upon request. Test Performed by [facility] [address] [place] [address] - Released 05/23/2024 12:54 Performed By: #### L [id number] ####[employer] [id number] [place] [address] Labon 05-23-2024 Lab [id number] Evans Forte 1970 M Date Provider Department Center 05/23/2024 2244-[facility] MP LAB RESOURCE MP DRAW [facility] Family History Problem Relation Age of Onset Breast cancer Mother Comments: age 53 Heart disease Father Heart attack Father Comments: age 26 No Known Problems Sister Comments: half-sister Crohn's disease Daughter Comments: perforated bowel Family Status - Relation Status Age at Mother Father Sister Daughter Normal [facility] PSA, SCREENINGon 05-23-2024 PROSTATE SPECIFIC AG (NG/ML) IN SER/PLAS 2.3 ng/mL Normal 0.4-4 [facility] Comment on above: Performed By: #### L [id number] ####[facility] [place] [address] TESTOSTERONEon 05-23-2024 TESTOSTERONE (NG/DL) IN SER/PLAS 373 ng/dL Normal 193-740 [facility] Comment on above: Result Comment: Test Performed by [facility] [address] [place] [id number] - Released 05/23/2024 12:54 Performed By: #### L [id number] #### [facility] [address] [place] [address] Refillon 05-02-2024 Refill [id number] Evans Forte 1970 M Date Provider Department Center 05/02/2024 [facility] Family History Problem Relation Age of Onset Breast cancer Mother Comments: age 53 Heart disease Father Heart attack Father Comments: age 26 No Known Problems Sister Comments: half-sister Crohn's disease Daughter Comments: perforated bowel Family Status - Relation Status Age at Mother Father Sister Daughter Reason for Visit and Comments: Med Refill [[id number]] Normal [facility] 36on 02-22-2024 36 Called patient and l eft message informing him of Dr. Henley's response below: [...] the results of his 1 year repeat [facility] 36 Patient would like update how often it was suggested to have a colonoscopy surveillance. He is working on becoming a kidney transplant donor. Last colonoscopy was done 06/2022. Please call to update with patient [phone]. Thank you This phone message was created by the Ambulatory float staff. If you need wind farm support specialist follow up regarding this patient, please make your appropriate clinic staff member aware. Thank you. [facility] 36on 02-09-2024 36 Patient called to nd out what all he needs to finish his work [...] verbalized understanding. Maria De Jesus Rutledge RN [facility] Glucose Glucometer (BldC) [M ass/Vol]Ordered By: Gi Mondragon on 12-24-2023 Glucose [Mass/Vol] 207 mg/dL [facility] Comment on above: Random Glucose Refer ence Range is dependent on time and content of last meal. Glucose of more than 200 mg/dL in a nonstressed, ambulatory subject supports the diagnosis of Diabetes Mellitus. No Panel InformationOrdered By: Gi Mondragon on 12-24-2023 Bedside Glucose Comment Glu2: cleaned meter [facility] Basophils Auto (Bld) [#/Vol] Ordered By: Buddy Murguia on 11-23-2023 Basophils (Bld) [#/Vol] 0.1 10*3/uL 0.0-0.2 [facility] Basophils/100 WBC Auto (Bld) Ordered By: Buddy Murguia on 11-23-2023 Basophils/100 WBC (Bld) 0.7 % . [facility] Calcium [Mass/volume] in Ser um or PlasmaOrdered By: Buddy Murguia on 11-23-2023 Calcium [Mass/Vol] 9.3 mg/dL 8.6-10.3 [facility] Carbon dioxide, total [Moles /volume] in Serum or PlasmaOrdered By: Buddy Murguia on 11-23-2023 CO2 [Moles/Vol] 25.0 mmol/L 21.0-31.0 [facility] Chloride [Moles/volume] in S james or PlasmaOrdered By: Buddy Murguia on 11-23-2023 Chloride [Moles/Vol] 102 mmol/L 98-[address] [facility] Creatinine [Mass/volume] in Serum or PlasmaOrdered By: Buddy Murguia on 11-23-2023 Creatinine [Mass/Vol] 10.07 mg/dL 0.70-1.30 [facility] Comment on above: Delta: 9.33 on 11/21-0616 Eosinophils Auto (Bld) [#/Vo l]Ordered By: Buddy Murguia on 11-23-2023 Eosinophils (Bld) [#/Vol] 0.4 10*3/uL 0.0-0.45 [facility] Eosinophils/100 WBC Auto (Bl d)Ordered By: Buddy Murguia on 11-23-2023 Eosinophils/100 WBC (Bld) 5.6 % . [facility] Erythrocyte distribution wid th Auto (RBC) [Ratio]Ordered By: Buddy Murguia on 11-23-2023 Erythrocyte distribution width (RBC) [Ratio] 15.7 % 12.0-14.8 [facility] Glucose Glucometer (BldC) [M ass/Vol]Ordered By: Amy Escudero on 11-23-2023 Glucose [Mass/Vol] 123 mg/dL [facility] Comment on above: Random Glucose Refer ence Range is dependent on time and content of last meal. Glucose of more than 200 mg/dL in a nonstressed, ambulatory subject supports the diagnosis of Diabetes Mellitus. Glucose [Mass/volume] in Ser um or PlasmaOrdered By: Buddy Murguia on 11-23-2023 Glucose [Mass/Vol] 94 mg/dL 70-100 [facility] Comment on above: ADA recommended refe rence rangeRandom Glucose Reference Range is dependent on time and content of last meal. Glucose of more than 200 mg/dL in a nonstressed, ambulatory subject supports the diagnosis of Diabetes Mellitus. Hematocrit Auto (Bld) [Volum e fraction]Ordered By: Buddy Murguia on 11-23-2023 Hematocrit (Bld) [Volume fraction] 35.2 % 38.8-50.0 [facility] Hemoglobin [Mass/volume] in BloodOrdered By: Buddy Murguia on 11-23-2023 Hemoglobin (Bld) [Mass/Vol] 11.3 g/dL 13.0-17.0 [facility] Leukocytes [#/volume] correc scott for nucleated erythrocytes in Blood by Automated counOrdered By: Buddy Murguia on 11-23-2023 WBC corrected for nucl RBC Auto (Bld) [#/Vol] 7.7 10*3/uL 4.1-10.5 [facility] Lymphocytes Auto (Bld) [#/Vo l]Ordered By: Buddy Murguia on 11-23-2023 Lymphocytes (Bld) [#/Vol] 1.6 10*3/uL 1.00-4.8 [facility] Lymphocytes/100 WBC Auto (Bl d)Ordered By: Buddy Murguia on 11-23-2023 Lymphocytes/100 WBC (Bld) 20.6 % . [facility] MCH Auto (RBC) [Entitic mass ]Ordered By: Buddy Murguia on 11-23-2023 MCH (RBC) [Entitic mass] 30.4 pg 27.5-35.2 [facility] MCHC Auto (RBC) [Mass/Vol]Or dered By: Buddy Murguia on 11-23-2023 MCHC (RBC) [Mass/Vol] 32.2 g/dL 32.5-35.6 [facility] MCV Auto (RBC) [Entitic vol] Ordered By: Buddy Murguia on 11-23-2023 MCV (RBC) [Entitic vol] 94.5 fL 83.5-101 [facility] Magnesium [Mass/volume] in S james or PlasmaOrdered By: Buddy Murguia on 11-23-2023 Magnesium [Mass/Vol] 2.7 mg/dL 1.9-2.[address] [facility] Monocytes Auto (Bld) [#/Vol] Ordered By: Buddy Murguia on 11-23-2023 Monocytes (Bld) [#/Vol] 0.8 10*3/uL 0.0-0.8 [facility] Monocytes/100 WBC Auto (Bld) Ordered By: Buddy Murguia on 11-23-2023 Monocytes/100 WBC (Bld) 9.8 % . [facility] Neutrophils Auto (Bld) [#/Vo l]Ordered By: Buddy Murguia on 11-23-2023 Neutrophils (Bld) [#/Vol] 4.9 10*3/uL 1.8-7.7 [facility] Neutrophils/100 WBC Auto (Bl d)Ordered By: Buddy Murguia on 11-23-2023 Neutrophils/100 WBC (Bld) 63.3 % . [facility] No Panel InformationOrdered By: Buddy Murguia on 11-23-2023 Estimated GFR (CKD-EPI) 5.666 mL/Min [facility] Creatinine Clearance (Chem 13.08 [facility] Nucleated erythrocytes [Pres ence] in Blood by Automated countOrdered By: Buddy Murguia on 11-23-2023 Nucleated RBC Auto Ql (Bld) 0.0 /100{WBC} 0-0.5 [facility] Platelet mean volume Auto (B ld) [Entitic vol]Ordered By: Buddy Murguia on 11-23-2023 Platelet mean volume (Bld) [Entitic vol] 8.3 fL 6.6-10.1 [facility] Platelets Auto (Bld) [#/Vol] Ordered By: Buddy Murguia on 11-23-2023 Platelets (Bld) [#/Vol] 248 10*3/uL 150-450 [facility] Potassium [Moles/volume] in Serum or PlasmaOrdered By: Buddy Murguia on 11-23-2023 Potassium [Moles/Vol] 4.5 mmol/L 3.5-5.1 [facility] RBC Auto (Bld) [#/Vol]Ordere d By: Buddy Murguia on 11-23-2023 RBC (Bld) [#/Vol] 3.73 10*6/uL 3.90-5.60 [facility] Serum or plasma anion gap de terminationOrdered By: Buddy Murguia on 11-23-2023 Anion gap [Moles/Vol] 16.5 mmol/L 6.0-15.0 [facility] Sodium [Moles/volume] in Ser um or PlasmaOrdered By: Buddy Murguia on 11-23-2023 Sodium [Moles/Vol] 139 mmol/L 136-145 [facility] Urea nitrogen [Mass/volume] in Serum or PlasmaOrdered By: Buddy Murguia on 11-23-2023 Urea nitrogen [Mass/Vol] 74 mg/dL 7-25 [facility] WBC Auto (Bld) [#/Vol]Ordere d By: Buddy Murguia on 11-23-2023 WBC (Bld) [#/Vol] 7.7 10*3/uL 4.1-10.5 [facility] Prealbumin [Mass/volume] in Serum or PlasmaOrdered By: Yasmin Winchester on 11-22-2023 Prealbumin [Mass/Vol] 28.9 mg/dL 17.0-34.0 [facility] Automated erythrocytes count in urine sediment (number/area)Ordered By: Chong Cabrera on 11-21-2023 RBC Auto (Urine sed) [#/Area] 1-2 [HPF] 0-4 [facility] Automated leukocytes count i n urine sediment (number/area)Ordered By: Chong Cabrera on 11-21-2023 WBC Auto (Urine sed) [#/Area] 20-49 [HPF] 0-4 [facility] Bilirubin Test strip Ql (U)O rdered By: Chong Cabrera on 11-21-2023 Bilirubin Ql (U) Negative Negative [facility] Color Auto (U)Ordered By: Tavon Cabrera on 11-21-2023 Color (U) Yellow Yellow [facility] Glucose mean value [Mass/vol ume] in Blood Estimated from glycated hemoglobinOrdered By: Buddy Murguia on 11-21-2023 Average glucose Estimated from glycated hemoglobin (Bld) [Mass/Vol] 114 mg/dL [facility] Hemoglobin A1c percentageOrd ered By: Buddy Murguia on 11-21-2023 HbA1c (Bld) [Mass fraction] 5.6 % 4.3-5.6 [facility] Comment on above: Increased risk for d iabetes: 5.7 - 6.4diabetes: >6.4glycemic control for adults with diabetes: <7.0 Ketones Auto test strip (U) [Mass/Vol]Ordered By: Chong Cabrera on 11-21-2023 Ketones (U) [Mass/Vol] Trace Negative [facility] Laboratory - UrinalysisOrder ed By: Chong Cabrera on 11-21-2023 Hyaline casts LM Ql (Urine sed) 9-19 [LPF] 0-8 [facility] Nitrite Test strip Ql (U)Ord ered By: Chong Cabrera on 11-21-2023 Nitrite Ql (U) Negative Negative [facility] Protein Auto test strip (U) [Mass/Vol]Ordered By: Chong Cabrera on 11-21-2023 Protein (U) [Mass/Vol] 300 mg/dL Negative [facility] Specific gravity Auto test s trip (U) [Rel density]Ordered By: Chong Cabrera on 11-21-2023 Specific gravity (U) [Rel density] 1.021 1.001-1.030 [facility] Squamous epithelial cells de tection in urine sediment by light microscopyOrdered By: Chong Cabrera on 11-21-2023 Epithelial cells.squamous LM Ql (Urine sed) 0-1 [HPF] 0-2 [facility] Urine bacteria detection by automated methodOrdered By: Chong Cabrera on 11-21-2023 Bacteria Auto Ql (U) None seen None Seen [facility] Urine clarity by refractomet ry automatedOrdered By: Chong Cabrera on 11-21-2023 Clarity Refractometry automated (U) Cloudy Clear [facility] Urine culture routineOrdered By: Chong Cabrera on 11-21-2023 Bacteria identified Cx Nom (U) No Growth 2 Days [facility] Urine glucose measurement by automated test strip (mass/volume)Ordered By: Chong Cabrera on 11-21-2023 Glucose Auto test strip (U) [Mass/Vol] Normal mg/dL Normal [facility] Urine hemoglobin detection b y automated test stripOrdered By: Chong Cabrera on 11-21-2023 Hemoglobin Auto test strip Ql (U) 2+ Negative [facility] Urine leukocyte esterase det ection by automated test stripOrdered By: Chong Cabrera on 11-21-2023 Leukocyte esterase Auto test strip Ql (U) 2+ Negative [facility] Urobilinogen Auto test strip (U) [Mass/Vol]Ordered By: Chong Cabrera on 11-21-2023 Urobilinogen (U) [Mass/Vol] Normal mg/dL Normal [facility] Yeast detection in urine sed iment by light microscopyOrdered By: Chong Cabrera on 11-21-2023 Yeast LM Ql (Urine sed) None seen [HPF] None Seen [facility] pH Auto test strip (U)Ordere d By: Chong Cabrera on 11-21-2023 pH (U) 5.0 [pH] 5.0-9.0 [facility] Activated partial thrombopla stin time (aPTT) in platelet poor plasma by coagulation aOrdered By: Chong Cabrera on 11-20-2023 aPTT Coag (PPP) [Time] 31.0 s 25.1-36.5 [facility] Comment on above: A hematocrit value g reater than 55% may lead to inaccurate results in coagulation testing. Patients having hematocrit values >55% require a special collection tube for coagulation studies. Please contact the laboratory at [phone] for redraw instructions. Alanine aminotransferase [En zymatic activity/volume] in Serum or PlasmaOrdered By: Chong Cabrera on 11-20-2023 ALT [Catalytic activity/Vol] 25 U/L 7-52 [facility] Albumin [Mass/volume] in Ser um or Plasma by Bromocresol green (BCG) dye binding methoOrdered By: Chong Cabrera on 11-20-2023 Albumin BCG dye [Mass/Vol] 4.4 g/dL 3.5-5.7 [facility] Alkaline phosphatase [Enzyma tic activity/volume] in Serum or PlasmaOrdered By: Chong Cabrera on 11-20-2023 ALP [Catalytic activity/Vol] 51 U/L 34-104 [facility] Anisocytosis LM Ql (Bld)Orde red By: Chong Cabrera on 11-20-2023 Anisocytosis Ql (Bld) Moderate [facility] Aspartate aminotransferase [ Enzymatic activity/volume] in Serum or PlasmaOrdered By: Chong Cabrera on 11-20-2023 AST [Catalytic activity/Vol] 24 U/L 13-39 [facility] Bacterial blood cultureOrder ed By: Chong Cabrera on 11-20-2023 Bacteria identified Cx Nom (Bld) NO GROWTH 5 DAYS [facility] Basophils Auto (Bld) [#/Vol] Ordered By: Chong Cabrera on 11-20-2023 Basophils (Bld) [#/Vol] N/A [facility] Basophils/100 WBC Auto (Bld) Ordered By: Chong Cabrera on 11-20-2023 Basophils/100 WBC (Bld) N/A [facility] Bilirubin.total [Mass/volume ] in Serum or PlasmaOrdered By: Chong Cabrera on 11-20-2023 Bilirubin [Mass/Vol] 0.6 mg/dL 0.3-1.[address] [facility] C reactive protein [Mass/vol ume] in Serum or PlasmaOrdered By: Chong Cabrera on 11-20-2023 CRP [Mass/Vol] 3.9 mg/dL 0.0-0.5 [facility] COVID-19 Detected/Not Detect edOrdered By: Chong Cabrera on 11-20-2023 SARS-CoV-2 (COVID-19) RNA SHAY+non-probe Ql (Nph) Not detected Not Detecte [facility] Comment on above: This is a duplicate RP2.1 COVID (PCR) result to be used for statistical tracking purpose only. Calcium [Mass/volume] in Ser um or PlasmaOrdered By: Chong Cabrera on 11-20-2023 Calcium [Mass/Vol] 8.9 mg/dL 8.6-10.3 [facility] Carbon dioxide, total [Moles /volume] in Serum or PlasmaOrdered By: Chong Cabrera on 11-20-2023 CO2 [Moles/Vol] 21.9 mmol/L 21.0-31.0 [facility] Chloride [Moles/volume] in S james or PlasmaOrdered By: Chong Cabrera on 11-20-2023 Chloride [Moles/Vol] 103 mmol/L 98-[address] [facility] Creatine kinase [Enzymatic a ctivity/volume] in Serum or PlasmaOrdered By: Chong Cabrera on 11-20-2023 CK [Catalytic activity/Vol] 135 U/L 30-223 [facility] Creatinine [Mass/volume] in Serum or PlasmaOrdered By: Chong Cabrera on 11-20-2023 Creatinine [Mass/Vol] 6.29 mg/dL 0.70-1.30 [facility] Eosinophils Auto (Bld) [#/Vo l]Ordered By: Chong Cabrera on 11-20-2023 Eosinophils (Bld) [#/Vol] N/A [facility] Eosinophils/100 WBC Auto (Bl d)Ordered By: Chong Cabrera on 11-20-2023 Eosinophils/100 WBC (Bld) N/A [facility] Erythrocyte distribution wid th Auto (RBC) [Ratio]Ordered By: Chong Cabrera on 11-20-2023 Erythrocyte distribution width (RBC) [Ratio] 16.1 % 12.0-14.8 [facility] Erythrocyte sedimentation ra te by Photometric methodOrdered By: Chong Cabrera on 11-20-2023 ESR Photometric method (d) [Velocity] 66 mm/hr 0-19 [facility] Globulin Calc (S) [Mass/Vol] Ordered By: Chong Cabrera on 11-20-2023 Globulin (S) [Mass/Vol] 3.9 g/dL [facility] Glucose Glucometer (BldC) [M ass/Vol]Ordered By: Chong Cabrera on 11-20-2023 Glucose [Mass/Vol] 111 mg/dL [facility] Comment on above: Random Glucose Refer ence Range is dependent on time and content of last meal. Glucose of more than 200 mg/dL in a nonstressed, ambulatory subject supports the diagnosis of Diabetes Mellitus. Glucose [Mass/volume] in Ser um or PlasmaOrdered By: Chong Cabrera on 11-20-2023 Glucose [Mass/Vol] 121 mg/dL 70-100 [facility] Comment on above: ADA recommended refe rence rangeRandom Glucose Reference Range is dependent on time and content of last meal. Glucose of more than 200 mg/dL in a nonstressed, ambulatory subject supports the diagnosis of Diabetes Mellitus. Hematocrit Auto (Bld) [Volum e fraction]Ordered By: Chong Cabrera on 11-20-2023 Hematocrit (Bld) [Volume fraction] 38.8 % 38.8-50.0 [facility] Hemoglobin [Mass/volume] in BloodOrdered By: Chong Cabrera on 11-20-2023 Hemoglobin (Bld) [Mass/Vol] 12.5 g/dL 13.0-17.0 [facility] INR in Platelet poor plasma by Coagulation assayOrdered By: Chong Cabrera on 11-20-2023 INR Coag (PPP) [Relative time] 1.1 {INR} [facility] Comment on above: INR Therapeutic Rang e A) Pre- and Peroperative OAT started two weeks before surgery. NOT HIP SURGERY: 1.5 - 2.5 HIP SURGERY: 2 - 3B) Primary and secondary prevention of venous THROMBOSIS: 2 - 3C) Active venous thrombosis, pulmonary embolismand prevention of recurrent venous thrombosis: 2 - 3D) Prevention of arterial thromboembolismincluding patients with mechanical heart valves: 3 - 4.5 Lactate [Moles/volume] in Se rum or PlasmaOrdered By: Chong Cabrera on 11-20-2023 Lactate [Moles/Vol] 1.7 mmol/L 0.5-2.2 [facility] Leukocytes [#/volume] correc scott for nucleated erythrocytes in Blood by Automated counOrdered By: Chong Cabrera on 11-20-2023 WBC corrected for nucl RBC Auto (Bld) [#/Vol] 19.5 10*3/uL 4.1-10.5 [facility] Lymphocytes Auto (Bld) [#/Vo l]Ordered By: Chong Cabrera on 11-20-2023 Lymphocytes (Bld) [#/Vol] N/A [facility] Lymphocytes/100 WBC Auto (Bl d)Ordered By: Chong Cabrera on 11-20-2023 Lymphocytes/100 WBC (Bld) N/A [facility] Lymphocytes/100 WBC Manual c nt (Bld)Ordered By: Chong Cabrera on 11-20-2023 Lymphocytes/100 WBC (Bld) 1 % 18-42 [facility] MCH Auto (RBC) [Entitic mass ]Ordered By: Chong Cabrera on 11-20-2023 MCH (RBC) [Entitic mass] 30.2 pg 27.5-35.2 [facility] MCHC Auto (RBC) [Mass/Vol]Or dered By: Chong Cabrera on 11-20-2023 MCHC (RBC) [Mass/Vol] 32.2 g/dL 32.5-35.6 [facility] MCV Auto (RBC) [Entitic vol] Ordered By: Chong Cabrera on 11-20-2023 MCV (RBC) [Entitic vol] 94.0 fL 83.5-101 [facility] Magnesium [Mass/volume] in S james or PlasmaOrdered By: Chong Cabrera on 11-20-2023 Magnesium [Mass/Vol] 1.6 mg/dL 1.9-2.[address] [facility] Microcytes LM Ql (Bld)Ordere d By: Chong Cabrera on 11-20-2023 Microcytes Ql (Bld) Slight [facility] Monocyte distribution width [Entitic volume] in Blood by AutomatedOrdered By: Chong Cabrera on 11-20-2023 Monocyte distribution width Auto (Bld) [Entitic vol] 25.63 % 0.00-20.00 [facility] Comment on above: The predictive value of MDW for identifying sepsis in patients with hematological abnormalities has not been established Monocytes Auto (Bld) [#/Vol] Ordered By: Chong Cabrera on 11-20-2023 Monocytes (Bld) [#/Vol] N/A [facility] Monocytes/100 WBC Auto (Bld) Ordered By: Chong Cabrera on 11-20-2023 Monocytes/100 WBC (Bld) N/A [facility] Monocytes/100 WBC Manual cnt (Bld)Ordered By: Chong Cabrera on 11-20-2023 Monocytes/100 WBC (Bld) 4 % 2-11 [facility] Natriuretic peptide B [Mass/ Vol]Ordered By: Chong Cabrera on 11-20-2023 Natriuretic peptide B (Bld) [Mass/Vol] 15.0 pg/mL 5-100 [facility] Neutrophils Auto (Bld) [#/Vo l]Ordered By: Chong Cabrera on 11-20-2023 Neutrophils (Bld) [#/Vol] N/A [facility] Neutrophils/100 WBC Auto (Bl d)Ordered By: Chong Cabrera on 11-20-2023 Neutrophils/100 WBC (Bld) N/A [facility] No Panel InformationOrdered By: Chong Cabrera on 11-20-2023 Estimated GFR (CKD-EPI) 9.967 mL/Min [facility] Creatinine Clearance (Chem 21.03 [facility] Nucleated erythrocytes [Pres ence] in Blood by Automated countOrdered By: Chong Cabrera on 11-20-2023 Nucleated RBC Auto Ql (Bld) N/A [facility] Platelet adequacy [Presence] in Blood by Light microscopyOrdered By: Chong Cabrera on 11-20-2023 Platelets LM Ql (Bld) Normal Normal [facility] Platelet mean volume Auto (B ld) [Entitic vol]Ordered By: Chong Cabrera on 11-20-2023 Platelet mean volume (Bld) [Entitic vol] 8.0 fL 6.6-10.1 [facility] Platelet morphology finding [Identifier] in BloodOrdered By: Chong Cabrera on 11-20-2023 Platelet morphology finding Nom (Bld) Normal Normal [facility] Platelets Auto (Bld) [#/Vol] Ordered By: Chong Cabrera on 11-20-2023 Platelets (Bld) [#/Vol] 280 10*3/uL 150-450 [facility] Potassium [Moles/volume] in Serum or PlasmaOrdered By: Chong Cabrera on 11-20-2023 Potassium [Moles/Vol] 4.2 mmol/L 3.5-5.1 [facility] Protein [Mass/volume] in Ser um or PlasmaOrdered By: Chong Cabrera on 11-20-2023 Protein [Mass/Vol] 8.3 g/dL 6.4-8.9 [facility] Prothrombin time (PT)Ordered By: Chong Cabrera on 11-20-2023 PT Coag (PPP) [Time] 12.8 s 9.0-12.[address] [facility] Comment on above: A hematocrit value g reater than 55% may lead to inaccurate results in coagulation testing. Patients having hematocrit values >55% require a special collection tube for coagulation studies. Please contact the laboratory at [phone] for redraw instructions. RBC Auto (Bld) [#/Vol]Ordere d By: Chong Cabrera on 11-20-2023 RBC (Bld) [#/Vol] 4.12 10*6/uL 3.90-5.60 [facility] RBC morphologyOrdered By: Tavon Cabrera on 11-20-2023 RBC morphology finding Nom (Bld) N/A [facility] Red blood cell stomatocyte d etectionOrdered By: Chong Cabrera on 11-20-2023 Stomatocytes LM Ql (Bld) Slight [facility] Respiratory pathogens DNA an d RNA panel - Nasopharynx by SHAY with non-probe detectionOrdered By: Chong Cabrera on 11-20-2023 Respiratory pathogens DNA and RNA panel SHAY+non-probe (Nph) [facility] Segmented neutrophils/100 WB C Manual cnt (Bld)Ordered By: Chong Cabrera on 11-20-2023 Segmented neutrophils/100 WBC (Bld) 94 % 50-70 [facility] Serum or plasma albumin/glob ulin mass ratioOrdered By: Chong Cabrera on 11-20-2023 Albumin/Globulin [Mass ratio] 1.1 {ratio} [facility] Serum or plasma anion gap de terminationOrdered By: Chong Cabrera on 11-20-2023 Anion gap [Moles/Vol] 17.3 mmol/L 6.0-15.0 [facility] Sodium [Moles/volume] in Ser um or PlasmaOrdered By: Chong Cabrera on 11-20-2023 Sodium [Moles/Vol] 138 mmol/L 136-145 [facility] Thyrotropin [Units/volume] i n Serum or PlasmaOrdered By: Chong Cabrera on 11-20-2023 TSH Qn 1.36 m[IU]/L 0.45-5.33 [facility] Troponin I.cardiac [Mass/vol ume] in Serum or Plasma by Detection limit <= 0.01 ng/Ordered By: Chong Cabrera on 11-20-2023 Troponin I.cardiac DL <= 0.01 ng/mL [Mass/Vol] 15.2 pg/mL 0.0-20.0 [facility] Urea nitrogen [Mass/volume] in Serum or PlasmaOrdered By: Chong Cabrera on 11-20-2023 Urea nitrogen [Mass/Vol] 32 mg/dL 7-25 [facility] Variant lymphocytes/100 WBC Manual cnt (Bld)Ordered By: Chong Cabrera on 11-20-2023 Variant lymphocytes/100 WBC (Bld) 1 % 0-12 [facility] WBC Auto (Bld) [#/Vol]Ordere d By: Chong Cabrera on 11-20-2023 WBC (Bld) [#/Vol] 19.5 10*3/uL 4.1-10.5 [facility] Glucose Glucometer (BldC) [M ass/Vol]Ordered By: Flakito High on 10-27-2023 Glucose [Mass/Vol] 106 mg/dL [facility] Comment on above: Random Glucose Refer ence Range is dependent on time and content of last meal. Glucose of more than 200 mg/dL in a nonstressed, ambulatory subject supports the diagnosis of Diabetes Mellitus. Hematocrit Auto (Bld) [Volum e fraction]Ordered By: Tyshawn Gardner on 10-27-2023 Hematocrit (Bld) [Volume fraction] 31.6 % 38.8-50.0 [facility] Hemoglobin [Mass/volume] in BloodOrdered By: Tyshawn Gardner on 10-27-2023 Hemoglobin (Bld) [Mass/Vol] 10.3 g/dL 13.0-17.0 [facility] No Panel InformationOrdered By: Flakito High on 10-27-2023 Bedside Glucose Comment Glu2: cleaned meter [facility] Potassium [Moles/volume] in Serum or PlasmaOrdered By: Tyshawn Gardner on 10-27-2023 Potassium [Moles/Vol] 4.5 mmol/L 3.5-5.1 [facility] Basic metabolic 1998 panelon 10-18-2023 Anion gap [Moles/Vol] 19.8 mmol/L High 6.0 - 15.0 NO [facility] Calcium [Mass/Vol] 9.2 mg/dL 8.6 - 10. 3 mg/dL [facility] Chloride [Moles/Vol] 103 mmol/L 98 - 10 7 mmol/L [facility] CO2 [Moles/Vol] 22.6 mmol/L 21.0 - 31.0 mmol/L [facility] Creatinine (U) [Mass/Vol] 9.63 mg/dL High 0.70 - 1.30 mg/dL [facility] GFR/1.73 sq M.predicted MDRD (S/P/Bld) [Vol rate/Area] 5.979 mL/min/{1.73_m2} [facility] Glucose [Mass/Vol] 105 mg/dL High 70 - 100 mg/dL [facility] Comment on above: Random Glucose Refer ence Range is dependent on time and content of last meal. Glucose of more than 200 mg/dL in a nonstressed, ambulatory subject supports the diagnosis of Diabetes Mellitus. ADA recommended reference range Interpretation and review of laboratory results Abnormal [facility] Potassium [Moles/Vol] 4.4 mmol/L 3.5 - 5.1 mmol/L [facility] Sodium [Moles/Vol] 141 mmol/L 136 - 145 mmol/L [facility] Urea nitrogen [Mass/Vol] 67 mg/dL High 7 - 25 mg/dL [facility] Basophils Auto (Bld) [#/Vol] Ordered By: Flakito High on 10-18-2023 Basophils (Bld) [#/Vol] 0.1 10*3/uL 0.0-0.2 [facility] Basophils/100 WBC Auto (Bld) Ordered By: Flakito High on 10-18-2023 Basophils/100 WBC (Bld) 0.9 % . [facility] Calcium [Mass/volume] in Ser um or PlasmaOrdered By: Flakito High on 10-18-2023 Calcium [Mass/Vol] 9.2 mg/dL 8.6-10.3 [facility] Carbon dioxide, total [Moles /volume] in Serum or PlasmaOrdered By: Flakito High on 10-18-2023 CO2 [Moles/Vol] 22.6 mmol/L 21.0-31.0 [facility] Chloride [Moles/volume] in S james or PlasmaOrdered By: Flakito High on 10-18-2023 Chloride [Moles/Vol] 103 mmol/L 98-[address] [facility] Creatinine [Mass/volume] in Serum or PlasmaOrdered By: Flakito High on 10-18-2023 Creatinine [Mass/Vol] 9.63 mg/dL 0.70-1.30 [facility] Eosinophils Auto (Bld) [#/Vo l]Ordered By: Flakito High on 10-18-2023 Eosinophils (Bld) [#/Vol] 0.5 10*3/uL 0.0-0.45 [facility] Eosinophils/100 WBC Auto (Bl d)Ordered By: Flakito High on 10-18-2023 Eosinophils/100 WBC (Bld) 4.2 % . [facility] Erythrocyte distribution wid th Auto (RBC) [Ratio]Ordered By: Flakito High on 10-18-2023 Erythrocyte distribution width (RBC) [Ratio] 15.5 % 12.0-14.8 [facility] Glucose [Mass/volume] in Ser um or PlasmaOrdered By: Flakito High on 10-18-2023 Glucose [Mass/Vol] 105 mg/dL 70-100 [facility] Comment on above: ADA recommended refe rence rangeRandom Glucose Reference Range is dependent on time and content of last meal. Glucose of more than 200 mg/dL in a nonstressed, ambulatory subject supports the diagnosis of Diabetes Mellitus. Hematocrit Auto (Bld) [Volum e fraction]Ordered By: Flakito High on 10-18-2023 Hematocrit (Bld) [Volume fraction] 32.0 % 38.8-50.0 [facility] Hemoglobin [Mass/volume] in BloodOrdered By: Flakito High on 10-18-2023 Hemoglobin (Bld) [Mass/Vol] 10.6 g/dL 13.0-17.0 [facility] Leukocytes [#/volume] correc scott for nucleated erythrocytes in Blood by Automated counOrdered By: Flakito High on 10-18-2023 WBC corrected for nucl RBC Auto (Bld) [#/Vol] 10.8 10*3/uL 4.1-10.5 [facility] Lymphocytes Auto (Bld) [#/Vo l]Ordered By: Flakito High on 10-18-2023 Lymphocytes (Bld) [#/Vol] 1.4 10*3/uL 1.00-4.8 [facility] Lymphocytes/100 WBC Auto (Bl d)Ordered By: Flakito High on 10-18-2023 Lymphocytes/100 WBC (Bld) 12.5 % . [facility] MCH Auto (RBC) [Entitic mass ]Ordered By: Flakito High on 10-18-2023 MCH (RBC) [Entitic mass] 31.2 pg 27.5-35.2 [facility] MCHC Auto (RBC) [Mass/Vol]Or dered By: Flakito High on 10-18-2023 MCHC (RBC) [Mass/Vol] 33.2 g/dL 32.5-35.6 [facility] MCV Auto (RBC) [Entitic vol] Ordered By: Flakito High on 10-18-2023 MCV (RBC) [Entitic vol] 93.8 fL 83.5-101 [facility] Monocytes Auto (Bld) [#/Vol] Ordered By: Flakito High on 10-18-2023 Monocytes (Bld) [#/Vol] 0.8 10*3/uL 0.0-0.8 [facility] Monocytes/100 WBC Auto (Bld) Ordered By: Flakito High on 10-18-2023 Monocytes/100 WBC (Bld) 7.8 % . [facility] Neutrophils Auto (Bld) [#/Vo l]Ordered By: Flakito High on 10-18-2023 Neutrophils (Bld) [#/Vol] 8.1 10*3/uL 1.8-7.7 [facility] Neutrophils/100 WBC Auto (Bl d)Ordered By: Flakito High on 10-18-2023 Neutrophils/100 WBC (Bld) 74.6 % . [facility] No Panel InformationOrdered By: Flakito High on 10-18-2023 Estimated GFR (CKD-EPI) 5.979 mL/Min [facility] Creatinine Clearance (Chem N/A [facility] Nucleated erythrocytes [Pres ence] in Blood by Automated countOrdered By: Flakito High on 10-18-2023 Nucleated RBC Auto Ql (Bld) 0.1 /100{WBC} 0-0.5 [facility] Platelet mean volume Auto (B ld) [Entitic vol]Ordered By: Flakito High on 10-18-2023 Platelet mean volume (Bld) [Entitic vol] 7.4 fL 6.6-10.1 [facility] Platelets Auto (Bld) [#/Vol] Ordered By: Flakito High on 10-18-2023 Platelets (Bld) [#/Vol] 391 10*3/uL 150-450 [facility] Potassium [Moles/volume] in Serum or PlasmaOrdered By: Flakito High on 10-18-2023 Potassium [Moles/Vol] 4.4 mmol/L 3.5-5.1 [facility] RBC Auto (Bld) [#/Vol]Ordere d By: Flakito High on 10-18-2023 RBC (Bld) [#/Vol] 3.41 10*6/uL 3.90-5.60 [facility] Serum or plasma anion gap de terminationOrdered By: Flakito High on 10-18-2023 Anion gap [Moles/Vol] 19.8 mmol/L 6.0-15.0 [facility] Sodium [Moles/volume] in Ser um or PlasmaOrdered By: Flakito High on 10-18-2023 Sodium [Moles/Vol] 141 mmol/L 136-145 [facility] Urea nitrogen [Mass/volume] in Serum or PlasmaOrdered By: Flakito High on 10-18-2023 Urea nitrogen [Mass/Vol] 67 mg/dL 03-30 [facility] WBC Auto (Bld) [#/Vol]Ordere d By: Flakito High on 10-18-2023 WBC (Bld) [#/Vol] 10.8 10*3/uL 4.1-10.5 [facility] Alanine aminotransferase [En zymatic activity/volume] in Serum or PlasmaOrdered By: Chintan Sweet on 09-25-2023 ALT [Catalytic activity/Vol] 22 U/L 7 [facility] Albumin [Mass/volume] in Ser um or Plasma by Bromocresol green (BCG) dye binding methoOrdered By: Chintan Sweet on 09-25-2023 Albumin BCG dye [Mass/Vol] 4.1 g/dL 3.5-5.7 [facility] Alkaline phosphatase [Enzyma tic activity/volume] in Serum or PlasmaOrdered By: Chintan Sweet on 09-25-2023 ALP [Catalytic activity/Vol] 40 U/L 34-104 [facility] Aspartate aminotransferase [ Enzymatic activity/volume] in Serum or PlasmaOrdered By: Chintan Sweet on 09-25-2023 AST [Catalytic activity/Vol] 22 U/L 13-39 [facility] Basophils Auto (Bld) [#/Vol] Ordered By: Chintan Sweet on 09-25-2023 Basophils (Bld) [#/Vol] 0.1 10*3/uL 0.0-0.2 [facility] Basophils/100 WBC Auto (Bld) Ordered By: Chintan Sweet on 09-25-2023 Basophils/100 WBC (Bld) 1.1 % . [facility] Bilirubin.total [Mass/volume ] in Serum or PlasmaOrdered By: Chintan Sweet on 09-25-2023 Bilirubin [Mass/Vol] 0.3 mg/dL 0.3-1.[address] [facility] COVID CepheidOrdered By: Joyce Sweet on 09-25-2023 SARS-CoV-2 (COVID-19) Ab IA Ql Negative Negative [facility] Comment on above: This is a duplicate CepDemo Lesson Xpert Xpress CoV-2/Flu/RSV Plus RNA by RT-PCR result to be used for statistical tracking purpose only. SARS-CoV-2 (COVID-19) RNA SHAY+probe Ql (Unsp spec) [facility] SARS-CoV-2 (COVID-19) RNA SHAY+probe Ql (Unsp spec) [facility] Calcium [Mass/volume] in Ser um or PlasmaOrdered By: Chintan Sweet on 09-25-2023 Calcium [Mass/Vol] 8.6 mg/dL 8.6-10.3 [facility] Carbon dioxide, total [Moles /volume] in Serum or PlasmaOrdered By: Chintan Sweet on 09-25-2023 CO2 [Moles/Vol] 22.6 mmol/L 21.0-31.0 [facility] Chloride [Moles/volume] in S james or PlasmaOrdered By: Chintan Sweet on 09-25-2023 Chloride [Moles/Vol] 102 mmol/L 98-[address] [facility] Creatinine [Mass/volume] in Serum or PlasmaOrdered By: Chintan Sweet on 09-25-2023 Creatinine [Mass/Vol] 5.80 mg/dL 0.70-1.30 [facility] Eosinophils Auto (Bld) [#/Vo l]Ordered By: Chintan Sweet on 09-25-2023 Eosinophils (Bld) [#/Vol] 0.4 10*3/uL 0.0-0.45 [facility] Eosinophils/100 WBC Auto (Bl d)Ordered By: Chintan Sweet on 09-25-2023 Eosinophils/100 WBC (Bld) 3.4 % . [facility] Erythrocyte distribution wid th Auto (RBC) [Ratio]Ordered By: Chintan Sweet on 09-25-2023 Erythrocyte distribution width (RBC) [Ratio] 14.7 % 12.0-14.8 [facility] Globulin Calc (S) [Mass/Vol] Ordered By: Chintan Sweet on 09-25-2023 Globulin (S) [Mass/Vol] 3.7 g/dL [facility] Glucose [Mass/volume] in Ser um or PlasmaOrdered By: Chintan Sweet on 09-25-2023 Glucose [Mass/Vol] 129 mg/dL 70-100 [facility] Comment on above: ADA recommended refe rence rangeRandom Glucose Reference Range is dependent on time and content of last meal. Glucose of more than 200 mg/dL in a nonstressed, ambulatory subject supports the diagnosis of Diabetes Mellitus. Hematocrit Auto (Bld) [Volum e fraction]Ordered By: Chintan Sweet on 09-25-2023 Hematocrit (Bld) [Volume fraction] 28.0 % 38.8-50.0 [facility] Hemoglobin [Mass/volume] in BloodOrdered By: Chintan Sweet on 09-25-2023 Hemoglobin (Bld) [Mass/Vol] 9.5 g/dL 13.0-17.0 [facility] Leukocytes [#/volume] correc scott for nucleated erythrocytes in Blood by Automated counOrdered By: Chintan Sweet on 09-25-2023 WBC corrected for nucl RBC Auto (Bld) [#/Vol] 11.7 10*3/uL 4.1-10.5 [facility] Lymphocytes Auto (Bld) [#/Vo l]Ordered By: Chintan Sweet on 09-25-2023 Lymphocytes (Bld) [#/Vol] 1.7 10*3/uL 1.00-4.8 [facility] Lymphocytes/100 WBC Auto (Bl d)Ordered By: Chintan Sweet on 09-25-2023 Lymphocytes/100 WBC (Bld) 14.2 % . [facility] MCH Auto (RBC) [Entitic mass ]Ordered By: Chintan Sweet on 09-25-2023 MCH (RBC) [Entitic mass] 31.2 pg 27.5-35.2 [facility] MCHC Auto (RBC) [Mass/Vol]Or dered By: Chintan Sweet on 09-25-2023 MCHC (RBC) [Mass/Vol] 34.1 g/dL 32.5-35.6 [facility] MCV Auto (RBC) [Entitic vol] Ordered By: Chintan Sweet on 09-25-2023 MCV (RBC) [Entitic vol] 91.4 fL 83.5-101 [facility] Monocyte distribution width [Entitic volume] in Blood by AutomatedOrdered By: hCintan Sweet on 09-25-2023 Monocyte distribution width Auto (Bld) [Entitic vol] 21.57 % 0.00-20.00 [facility] Comment on above: For adults in ED, MD W > 20.0 may be associated with a higher risk of sepsis during the first 12 hrs of hospital admission Monocytes Auto (Bld) [#/Vol] Ordered By: Chintan Sweet on 09-25-2023 Monocytes (Bld) [#/Vol] 0.8 10*3/uL 0.0-0.8 [facility] Monocytes/100 WBC Auto (Bld) Ordered By: Chintan Sweet on 09-25-2023 Monocytes/100 WBC (Bld) 6.8 % . [facility] Natriuretic peptide B [Mass/ Vol]Ordered By: Chintan Sweet on 09-25-2023 Natriuretic peptide B (Bld) [Mass/Vol] 16.0 pg/mL 5-100 [facility] Neutrophils Auto (Bld) [#/Vo l]Ordered By: Chintan Sweet on 09-25-2023 Neutrophils (Bld) [#/Vol] 8.7 10*3/uL 1.8-7.7 [facility] Neutrophils/100 WBC Auto (Bl d)Ordered By: Chintan Sweet on 09-25-2023 Neutrophils/100 WBC (Bld) 74.5 % . [facility] No Panel InformationOrdered By: Chintan Sweet on 09-25-2023 Estimated GFR (CKD-EPI) 10.985 mL/Min [facility] Creatinine Clearance (Chem 23.13 [facility] Nucleated erythrocytes [Pres ence] in Blood by Automated countOrdered By: Chintan Sweet on 09-25-2023 Nucleated RBC Auto Ql (Bld) 0.1 /100{WBC} 0-0.5 [facility] Platelet mean volume Auto (B ld) [Entitic vol]Ordered By: Chintan Sweet on 09-25-2023 Platelet mean volume (Bld) [Entitic vol] 7.9 fL 6.6-10.1 [facility] Platelets Auto (Bld) [#/Vol] Ordered By: Chintan Sweet on 09-25-2023 Platelets (Bld) [#/Vol] 330 10*3/uL 150-450 [facility] Potassium [Moles/volume] in Serum or PlasmaOrdered By: Chintan Sweet on 09-25-2023 Potassium [Moles/Vol] 3.8 mmol/L 3.5-5.1 [facility] Protein [Mass/volume] in Ser um or PlasmaOrdered By: Chintan Sweet on 09-25-2023 Protein [Mass/Vol] 7.8 g/dL 6.4-8.9 [facility] RBC Auto (Bld) [#/Vol]Ordere d By: Chintan Sweet on 09-25-2023 RBC (Bld) [#/Vol] 3.06 10*6/uL 3.90-5.60 [facility] Serum or plasma albumin/glob ulin mass ratioOrdered By: Chintan Sweet on 09-25-2023 Albumin/Globulin [Mass ratio] 1.1 {ratio} [facility] Serum or plasma anion gap de terminationOrdered By: Chintan Sweet on 09-25-2023 Anion gap [Moles/Vol] 14.2 mmol/L 6.0-15.0 [facility] Sodium [Moles/volume] in Ser um or PlasmaOrdered By: Chintan Sweet on 09-25-2023 Sodium [Moles/Vol] 135 mmol/L 136-145 [facility] Troponin I.cardiac [Mass/vol ume] in Serum or Plasma by Detection limit <= 0.01 ng/Ordered By: Chintan Sweet on 09-25-2023 Troponin I.cardiac DL <= 0.01 ng/mL [Mass/Vol] 55.3 pg/mL 0.0-20.0 [facility] Comment on above: Critical Result : Ca lled to and read back by: JUDAH LOWRY at: 09/25/2023 23:49:03 by:CHARLIE Urea nitrogen [Mass/volume] in Serum or PlasmaOrdered By: Chintan Sweet on 09-25-2023 Urea nitrogen [Mass/Vol] 43 mg/dL 7-25 [facility] WBC Auto (Bld) [#/Vol]Ordere d By: Chintan Sweet on 09-25-2023 WBC (Bld) [#/Vol] 11.7 10*3/uL 4.1-10.5 [facility] Basophils Auto (Bld) [#/Vol] Ordered By: Moses Boateng on 09-16-2023 Basophils (Bld) [#/Vol] 0.0 10*3/uL 0.0-0.2 [facility] Basophils/100 WBC Auto (Bld) Ordered By: Moses Boateng on 09-16-2023 Basophils/100 WBC (Bld) 0.4 % . [facility] Calcium [Mass/volume] in Ser um or PlasmaOrdered By: Moses Boateng on 09-16-2023 Calcium [Mass/Vol] 8.2 mg/dL 8.6-10.3 [facility] Carbon dioxide, total [Moles /volume] in Serum or PlasmaOrdered By: Moses Boateng on 09-16-2023 CO2 [Moles/Vol] 23.5 mmol/L 21.0-31.0 [facility] Chloride [Moles/volume] in S james or PlasmaOrdered By: Moses Boateng on 09-16-2023 Chloride [Moles/Vol] 106 mmol/L 98-[address] [facility] Creatinine [Mass/volume] in Serum or PlasmaOrdered By: Moses Boateng on 09-16-2023 Creatinine [Mass/Vol] 10.67 mg/dL 0.70-1.30 [facility] Eosinophils Auto (Bld) [#/Vo l]Ordered By: Moses Boateng on 09-16-2023 Eosinophils (Bld) [#/Vol] 0.4 10*3/uL 0.0-0.45 [facility] Eosinophils/100 WBC Auto (Bl d)Ordered By: Moses Boateng on 09-16-2023 Eosinophils/100 WBC (Bld) 3.5 % . [facility] Erythrocyte distribution wid th Auto (RBC) [Ratio]Ordered By: Moses Boateng on 09-16-2023 Erythrocyte distribution width (RBC) [Ratio] 14.9 % 12.0-14.8 [facility] Glucose Glucometer (BldC) [M ass/Vol]Ordered By: Ramirez Jean on 09-16-2023 Glucose [Mass/Vol] 103 mg/dL [facility] Comment on above: Random Glucose Refer ence Range is dependent on time and content of last meal. Glucose of more than 200 mg/dL in a nonstressed, ambulatory subject supports the diagnosis of Diabetes Mellitus. Glucose [Mass/volume] in Ser um or PlasmaOrdered By: Moses Boateng on 09-16-2023 Glucose [Mass/Vol] 93 mg/dL 70-100 [facility] Comment on above: ADA recommended refe rence rangeRandom Glucose Reference Range is dependent on time and content of last meal. Glucose of more than 200 mg/dL in a nonstressed, ambulatory subject supports the diagnosis of Diabetes Mellitus. Hematocrit Auto (Bld) [Volum e fraction]Ordered By: Moses Boateng on 09-16-2023 Hematocrit (Bld) [Volume fraction] 26.0 % 38.8-50.0 [facility] Hemoglobin [Mass/volume] in BloodOrdered By: Moses Boateng on 09-16-2023 Hemoglobin (Bld) [Mass/Vol] 8.7 g/dL 13.0-17.0 [facility] Leukocytes [#/volume] correc scott for nucleated erythrocytes in Blood by Automated counOrdered By: Moses Boateng on 09-16-2023 WBC corrected for nucl RBC Auto (Bld) [#/Vol] 11.3 10*3/uL 4.1-10.5 [facility] Lymphocytes Auto (Bld) [#/Vo l]Ordered By: Moses Boateng on 09-16-2023 Lymphocytes (Bld) [#/Vol] 1.7 10*3/uL 1.00-4.8 [facility] Lymphocytes/100 WBC Auto (Bl d)Ordered By: Moses Boateng on 09-16-2023 Lymphocytes/100 WBC (Bld) 14.7 % . [facility] MCH Auto (RBC) [Entitic mass ]Ordered By: Moses Boateng on 09-16-2023 MCH (RBC) [Entitic mass] 30.7 pg 27.5-35.2 [facility] MCHC Auto (RBC) [Mass/Vol]Or dered By: Moses Boateng on 09-16-2023 MCHC (RBC) [Mass/Vol] 33.4 g/dL 32.5-35.6 [facility] MCV Auto (RBC) [Entitic vol] Ordered By: Moses Boateng on 09-16-2023 MCV (RBC) [Entitic vol] 91.9 fL 83.5-101 [facility] Monocytes Auto (Bld) [#/Vol] Ordered By: Moses Boateng on 09-16-2023 Monocytes (Bld) [#/Vol] 0.8 10*3/uL 0.0-0.8 [facility] Monocytes/100 WBC Auto (Bld) Ordered By: Moses Boateng on 09-16-2023 Monocytes/100 WBC (Bld) 7.3 % . [facility] Neutrophils Auto (Bld) [#/Vo l]Ordered By: Moses Boateng on 09-16-2023 Neutrophils (Bld) [#/Vol] 8.4 10*3/uL 1.8-7.7 [facility] Neutrophils/100 WBC Auto (Bl d)Ordered By: Moses Boateng on 09-16-2023 Neutrophils/100 WBC (Bld) 74.1 % . [facility] No Panel InformationOrdered By: Moses Boateng on 09-16-2023 Estimated GFR (CKD-EPI) 5.286 mL/Min [facility] Creatinine Clearance (Chem 12.72 [facility] Nucleated erythrocytes [Pres ence] in Blood by Automated countOrdered By: Moses Boateng on 09-16-2023 Nucleated RBC Auto Ql (Bld) 0.0 /100{WBC} 0-0.5 [facility] Platelet mean volume Auto (B ld) [Entitic vol]Ordered By: Moses Boateng on 09-16-2023 Platelet mean volume (Bld) [Entitic vol] 8.0 fL 6.6-10.1 [facility] Platelets Auto (Bld) [#/Vol] Ordered By: Moses Boateng on 09-16-2023 Platelets (Bld) [#/Vol] 247 10*3/uL 150-450 [facility] Potassium [Moles/volume] in Serum or PlasmaOrdered By: Moses Boateng on 09-16-2023 Potassium [Moles/Vol] 4.3 mmol/L 3.5-5.1 [facility] RBC Auto (Bld) [#/Vol]Ordere d By: Moses Boateng on 09-16-2023 RBC (Bld) [#/Vol] 2.83 10*6/uL 3.90-5.60 [facility] Serum or plasma anion gap de terminationOrdered By: oMses Boateng on 09-16-2023 Anion gap [Moles/Vol] 17.8 mmol/L 6.0-15.0 [facility] Sodium [Moles/volume] in Ser um or PlasmaOrdered By: Moses Boateng on 09-16-2023 Sodium [Moles/Vol] 143 mmol/L 136-145 [facility] Urea nitrogen [Mass/volume] in Serum or PlasmaOrdered By: Moses Boateng on 09-16-2023 Urea nitrogen [Mass/Vol] 110 mg/dL 7-25 [facility] WBC Auto (Bld) [#/Vol]Ordere d By: Moses Boateng on 09-16-2023 WBC (Bld) [#/Vol] 11.3 10*3/uL 4.1-10.5 [facility] Alanine aminotransferase [En zymatic activity/volume] in Serum or PlasmaOrdered By: Michelle Kennedy on 06-26-2023 ALT [Catalytic activity/Vol] 16 U/L 7-52 [facility] Albumin [Mass/volume] in Ser um or Plasma by Bromocresol green (BCG) dye binding methoOrdered By: Michelle Kennedy on 06-26-2023 Albumin BCG dye [Mass/Vol] 3.8 g/dL 3.5-5.7 [facility] Alkaline phosphatase [Enzyma tic activity/volume] in Serum or PlasmaOrdered By: Michelle Kennedy on 06-26-2023 ALP [Catalytic activity/Vol] 63 U/L 34-104 [facility] Aspartate aminotransferase [ Enzymatic activity/volume] in Serum or PlasmaOrdered By: Michelle Kennedy on 06-26-2023 AST [Catalytic activity/Vol] 11 U/L 13-39 [facility] Bilirubin.total [Mass/volume ] in Serum or PlasmaOrdered By: Michelle Kennedy on 06-26-2023 Bilirubin [Mass/Vol] 0.3 mg/dL 0.3-1.[address] [facility] Calcium [Mass/volume] in Ser um or PlasmaOrdered By: Michelle Kennedy on 06-26-2023 Calcium [Mass/Vol] 8.4 mg/dL 8.6-10.3 [facility] Carbon dioxide, total [Moles /volume] in Serum or PlasmaOrdered By: Michelle Kennedy on 06-26-2023 CO2 [Moles/Vol] 24.9 mmol/L 21.0-31.0 [facility] Chloride [Moles/volume] in S james or PlasmaOrdered By: Michelle Kennedy on 06-26-2023 Chloride [Moles/Vol] 107 mmol/L 98-[address] [facility] Cholesterol [Mass/volume] in Serum or PlasmaOrdered By: Michelle Kennedy on 06-26-2023 Cholesterol [Mass/Vol] 143 mg/dL 140-200 [facility] Comment on above: Chol less than 200 m g/dl low riskChol 201-239 mg/dl borderline riskChol 240 mg/dl and greater high risk Cholesterol in LDL Calc [Mas s/Vol]Ordered By: Michelle Kennedy on 06-26-2023 Cholesterol in LDL [Mass/Vol] 72 mg/dL 0-100 [facility] Comment on above: LDL ATP III CLASSIFI CATIONLDL less than 100 mg/dL OptimalLDL 100-129 mg/dL Near or above optimalLDL 130-159 mg/dL Borderline highLDL 160-189 mg/dL HighLDL greater than 189 mg/dL Very high Cholesterol in VLDL Calc [Ma ss/Vol]Ordered By: Michelle Kennedy on 06-26-2023 Cholesterol in VLDL [Mass/Vol] 40 mg/dL [facility] Creatinine [Mass/volume] in Serum or PlasmaOrdered By: Michelle Kennedy on 06-26-2023 Creatinine [Mass/Vol] 8.14 mg/dL 0.70-1.30 [facility] Globulin Calc (S) [Mass/Vol] Ordered By: Michelle Kennedy on 06-26-2023 Globulin (S) [Mass/Vol] 3.2 g/dL [facility] Glucose [Mass/volume] in Ser um or PlasmaOrdered By: Michelle Kennedy on 06-26-2023 Glucose [Mass/Vol] 117 mg/dL 70-100 [facility] Comment on above: ADA recommended refe rence rangeRandom Glucose Reference Range is dependent on time and content of last meal. Glucose of more than 200 mg/dL in a nonstressed, ambulatory subject supports the diagnosis of Diabetes Mellitus. No Panel InformationOrdered By: Michelle Kennedy on 06-26-2023 C-Peptide 3.3 ng/mL 1.1-4.4 [facility] Comment on above: C-Peptide reference interval is for fasting patients.Performed at: [employer] [facility] [id number] Director: Omar Frederick PhD, Phone: [phone] Estimated GFR (CKD-EPI) 7.315 mL/Min [facility] Creatinine Clearance (Chem N/A [facility] Potassium [Moles/volume] in Serum or PlasmaOrdered By: Tondra Mapus on 06-26-2023 Potassium [Moles/Vol] 4.0 mmol/L 3.5-5.1 [facility] Protein [Mass/volume] in Ser um or PlasmaOrdered By: Tondra Mapus on 06-26-2023 Protein [Mass/Vol] 7.0 g/dL 6.4-8.9 [facility] Serum or plasma albumin/glob ulin mass ratioOrdered By: Tondra Mapus on 06-26-2023 Albumin/Globulin [Mass ratio] 1.2 {ratio} [facility] Serum or plasma anion gap de terminationOrdered By: Tondra Mapus on 06-26-2023 Anion gap [Moles/Vol] 13.1 mmol/L 6.0-15.0 [facility] Serum or plasma high density lipoprotein (HDL) cholesterol measurementOrdered By: Tondra Mapus on 06-26-2023 Cholesterol in HDL [Mass/Vol] 31 mg/dL 23-92 [facility] Comment on above: HDL CHOL ATP-III CLA SSIFICATION Cardiovascular RiskHDL > or equal to 60 mg/dL LOWHDL < 40 mg/dL HIGH Serum or plasma total choles terol/high density lipoprotein (HDL) cholesterol mass ratOrdered By: Tondra Mapus on 06-26-2023 Cholesterol.total/Chol esterol in HDL [Mass ratio] 4.6 {ratio} <5.0 [facility] Sodium [Moles/volume] in Ser um or PlasmaOrdered By: Tondra Mapus on 06-26-2023 Sodium [Moles/Vol] 141 mmol/L 136-145 [facility] Triglyceride [Mass/volume] i n Serum or PlasmaOrdered By: Michelle Kennedy on 06-26-2023 Triglyceride [Mass/Vol] 200 mg/dL 0-149 [facility] Comment on above: TRIG ATP III CLASSIF ICATIONTRIG less than 150 mg/dL NormalTRIG 150-199 mg/dL Borderline highTRIG 200-500 mg/dL High TRIG greater than 500 mg/dL Very highStandard traceable to the Center for Disease Conrtrol and Prevention (CDC) test method. Urea nitrogen [Mass/volume] in Serum or PlasmaOrdered By: Michelle Kennedy on 06-26-2023 Urea nitrogen [Mass/Vol] 79 mg/dL 7 [facility] Albumin [Mass/volume] in Ser um or PlasmaOrdered By: Yocasta Villalba on 11-07-2022 Albumin [Mass/Vol] 2.9 g/dL 3.2-5.5 [facility] Basophils Auto (Bld) [#/Vol] Ordered By: Chintan Brewster on 11-07-2022 Basophils (Bld) [#/Vol] 0.0 10*3/uL 0.0-0.2 [facility] Basophils/100 WBC Auto (Bld) Ordered By: Chintan Brewster on 11-07-2022 Basophils/100 WBC (Bld) 0.1 % . [facility] Calcium [Mass/volume] in Ser um or PlasmaOrdered By: Yocasta Villalba on 11-07-2022 Calcium [Mass/Vol] 8.2 mg/dL 8.2-10.2 [facility] Carbon dioxide, total [Moles /volume] in Serum or PlasmaOrdered By: Yocasta Villalba on 11-07-2022 CO2 [Moles/Vol] 16.2 mmol/L 22.0-30.0 [facility] Chloride [Moles/volume] in S jamse or PlasmaOrdered By: Yocasta Villalba on 11-07-2022 Chloride [Moles/Vol] 109 mmol/L 95-[address] [facility] Creatinine and Glomerular fi ltration rate.predicted panel (S/P/Bld)Ordered By: Yocasta Villalba on 11-07-2022 Creatinine [Mass/Vol] 6.66 mg/dL 0.64-1.27 [facility] Eosinophils Auto (Bld) [#/Vo l]Ordered By: Chintan Brewster on 11-07-2022 Eosinophils (Bld) [#/Vol] 0.0 10*3/uL 0.0-0.45 [facility] Eosinophils/100 WBC Auto (Bl d)Ordered By: Chintan Brewster on 11-07-2022 Eosinophils/100 WBC (Bld) 0.1 % . [facility] Erythrocyte distribution wid th Auto (RBC) [Ratio]Ordered By: Chintan Brewster on 11-07-2022 Erythrocyte distribution width (RBC) [Ratio] 14.2 % 12.0-14.8 [facility] Estimated glomerular filtrat ion rate (GFR) non- AmericanOrdered By: Yocasta Villalba on 11-07-2022 GFR/1.73 sq M.predicted among non-blacks MDRD (S/P/Bld) [Vol rate/Area] 9 mL/Min [facility] Glucose Glucometer (BldC) [M ass/Vol]Ordered By: Chintan Brewster on 11-07-2022 Glucose [Mass/Vol] 230 mg/dL [facility] Comment on above: Random Glucose Refer ence Range is dependent on time and content of last meal. Glucose of more than 200 mg/dL in a nonstressed, ambulatory subject supports the diagnosis of Diabetes Mellitus. Glucose [Mass/volume] in Ser um or PlasmaOrdered By: Yocasta Villalba on 11-07-2022 Glucose [Mass/Vol] 239 mg/dL 70-100 [facility] Comment on above: Delta: 340 on [id number] recommended reference rangeRandom Glucose Reference Range is dependent on time and content of last meal. Glucose of more than 200 mg/dL in a nonstressed, ambulatory subject supports the diagnosis of Diabetes Mellitus. Hematocrit Auto (Bld) [Volum e fraction]Ordered By: Chintan Brewster on 11-07-2022 Hematocrit (Bld) [Volume fraction] 27.0 % 38.8-50.0 [facility] Hemoglobin [Mass/volume] in BloodOrdered By: Chintan Brewster on 11-07-2022 Hemoglobin (Bld) [Mass/Vol] 8.8 g/dL 13.0-17.0 [facility] Leukocytes [#/volume] correc scott for nucleated erythrocytes in Blood by Automated counOrdered By: Chintan Brewster on 11-07-2022 WBC corrected for nucl RBC Auto (Bld) [#/Vol] 12.4 10*3/uL 4.1-10.5 [facility] Lymphocytes Auto (Bld) [#/Vo l]Ordered By: Chintan Brewster on 11-07-2022 Lymphocytes (Bld) [#/Vol] 0.7 10*3/uL 1.00-4.8 [facility] Lymphocytes/100 WBC Auto (Bl d)Ordered By: Chintan Brewster on 11-07-2022 Lymphocytes/100 WBC (Bld) 5.8 % . [facility] MCH Auto (RBC) [Entitic mass ]Ordered By: Chintan Brewster on 11-07-2022 MCH (RBC) [Entitic mass] 29.7 pg 27.5-35.2 [facility] MCHC Auto (RBC) [Mass/Vol]Or dered By: Chintan Brewster on 11-07-2022 MCHC (RBC) [Mass/Vol] 32.7 g/dL 32.5-35.6 [facility] MCV Auto (RBC) [Entitic vol] Ordered By: Chintan Brewster on 11-07-2022 MCV (RBC) [Entitic vol] 90.8 fL 83.5-101 [facility] Monocytes Auto (Bld) [#/Vol] Ordered By: Chintan Brewster on 11-07-2022 Monocytes (Bld) [#/Vol] 0.8 10*3/uL 0.0-0.8 [facility] Monocytes/100 WBC Auto (Bld) Ordered By: Chintan Brewster on 11-07-2022 Monocytes/100 WBC (Bld) 6.5 % . [facility] Neutrophils Auto (Bld) [#/Vo l]Ordered By: Chnitan Brewster on 11-07-2022 Neutrophils (Bld) [#/Vol] 10.9 10*3/uL 1.8-7.7 [facility] Neutrophils/100 WBC Auto (Bl d)Ordered By: Chintan Brewster on 11-07-2022 Neutrophils/100 WBC (Bld) 87.5 % . [facility] No Panel InformationOrdered By: Yocasta Villalba on 11-07-2022 Estimated GFR () 11 mL/Min [facility] Comment on above: GFR estimated refere nce range: According to KDOQI guidelines, <60 ml/min/1.73m2 is sufficient to diagnose a patient with chronic kidney disease. Pharmacy Creatinine Clearance (Chem 19.91 [facility] No Panel InformationOrdered By: Chintan Brewster on 11-07-2022 Bedside Glucose Comment Glu2: cleaned meter [facility] Bedside Glucose #2 Comment Will repeat test [facility] Nucleated erythrocytes [Pres ence] in Blood by Automated countOrdered By: Chintan Brewster on 11-07-2022 Nucleated RBC Auto Ql (Bld) 0.1 /100{WBC} 0-0.5 [facility] Phosphate [Mass/volume] in S james or PlasmaOrdered By: Yocasta Villalba on 11-07-2022 Phosphate [Mass/Vol] 4.2 mg/dL 2.5-4.[address] [facility] Platelet mean volume Auto (B ld) [Entitic vol]Ordered By: Chintan Brewster on 11-07-2022 Platelet mean volume (Bld) [Entitic vol] 7.1 fL 6.6-10.1 [facility] Platelets Auto (Bld) [#/Vol] Ordered By: Chintan Brewster on 11-07-2022 Platelets (Bld) [#/Vol] 399 10*3/uL 150-450 [facility] Potassium [Moles/volume] in Serum or PlasmaOrdered By: Yocasta Villalba on 11-07-2022 Potassium [Moles/Vol] 4.4 mmol/L 3.5-5.1 [facility] Comment on above: *Additional results available. Contact laboratory/see report*Delta: 6.0 on 11/07/22 RBC Auto (Bld) [#/Vol]Ordere d By: Chintan Brewster on 11-07-2022 RBC (Bld) [#/Vol] 2.97 10*6/uL 3.90-5.60 [facility] Serum or plasma anion gap de terminationOrdered By: Yocasta Villalba on 11-07-2022 Anion gap [Moles/Vol] 14.2 mmol/L 6.0-15.0 [facility] Sodium [Moles/volume] in Ser um or PlasmaOrdered By: Yocasta Villalba on 11-07-2022 Sodium [Moles/Vol] 135 mmol/L 136-146 [facility] Urea nitrogen [Mass/volume] in Serum or PlasmaOrdered By: Yocasta Villalba on 11-07-2022 Urea nitrogen [Mass/Vol] 73 mg/dL 9-23 [facility] WBC Auto (Bld) [#/Vol]Ordere d By: Chintan Brewster on 11-07-2022 WBC (Bld) [#/Vol] 12.4 10*3/uL 4.1-10.[address] [facility] [address] biopsyOrdered By: Yocasta rockwell on 11-06-2022 Transferrin [Mass/Vol] 225 mg/dL 180-380 [facility] Ferritin [Mass/volume] in Se rum or PlasmaOrdered By: Yocasta Villalba on 11-06-2022 Ferritin [Mass/Vol] 363.1 ng/mL 23.9-336.[address] [facility] Folate [Mass/volume] in Seru m or PlasmaOrdered By: Yocasta Villalba on 11-06-2022 Folate [Mass/Vol] 11.5 ng/mL >5.9 [facility] Comment on above: Folate reference ran ge: >5.9 ng/mlThe WHO technical consultation on folate and vitamin [id number] has determined that folate concentrations lessthan 4 ng/ml are considered deficient. Iron [Mass/volume] in Serum or PlasmaOrdered By: Yocasta Villalba on 11-06-2022 Iron [Mass/Vol] 38 ug/dL 40-160 [facility] Iron binding capacity [Mass/ volume] in Serum or PlasmaOrdered By: Yocasta Villalba on 11-06-2022 Iron binding capacity [Mass/Vol] 315 ug/dL 255-450 [facility] Iron saturation [Mass Fracti on] in Serum or PlasmaOrdered By: Yocasta Villalba on 11-06-2022 Iron saturation [Mass fraction] 12.1 % 20-50 [facility] COVID CepheidOrdered By: Joyce Brewster on 11-05-2022 SARS-CoV-2 (COVID-19) Ab IA Ql Negative Negative [facility] Comment on above: This is a duplicate Cepheid Xpert Xpress CoV-2/Flu/RSV Plus RNA by RT-PCR result to be used for statistical tracking purpose only. SARS-CoV-2 (COVID-19) RNA SHAY+probe Ql (Unsp spec) [facility] SARS-CoV-2 (COVID-19) RNA SHAY+probe Ql (Unsp spec) [facility] Activated partial thrombopla stin time (aPTT) in platelet poor plasma by coagulation aOrdered By: Millie Burgos on 11-04-2022 aPTT Coag (PPP) [Time] 35.0 s 25.1-36.5 [facility] Albumin [Mass/volume] in Bod y fluidOrdered By: Delano Mondragon on 11-04-2022 Albumin (Body fld) [Mass/Vol] 3.3 g/dL 3.2-5.5 [facility] Alkaline phosphatase [Enzyma tic activity/volume] in Serum or PlasmaOrdered By: Delano Mondragon on 11-04-2022 ALP [Catalytic activity/Vol] 59 U/L 32-92 [facility] Aspartate aminotransferase [ Enzymatic activity/volume] in Serum or PlasmaOrdered By: Delano Mondragon on 11-04-2022 AST [Catalytic activity/Vol] 14 U/L 10-42 [facility] Automated erythrocytes count in urine sediment (number/area)Ordered By: Millie Burgos on 11-04-2022 RBC Auto (Urine sed) [#/Area] 3-4 [HPF] 0-4 [facility] Automated leukocytes count i n urine sediment (number/area)Ordered By: Millie Burgos on 11-04-2022 WBC Auto (Urine sed) [#/Area] 1-2 [HPF] 0-4 [facility] Basophils Auto (Bld) [#/Vol] Ordered By: Delano Mondragon on 11-04-2022 Basophils (Bld) [#/Vol] 0.1 10*3/uL 0.0-0.2 [facility] Basophils/100 WBC Auto (Bld) Ordered By: Delano Mondragon on 11-04-2022 Basophils/100 WBC (Bld) 1.1 % . [facility] Bilirubin Test strip Ql (U)O rdered By: Millie Burgos on 11-04-2022 Bilirubin Ql (U) Negative Negative [facility] Bilirubin.total [Mass/volume ] in Serum or PlasmaOrdered By: Delano Mondragon on 11-04-2022 Bilirubin [Mass/Vol] 0.3 mg/dL 0.3-1.[address] [facility] Calcium [Mass/volume] in Ser um or PlasmaOrdered By: Delano Mondragon on 11-04-2022 Calcium [Mass/Vol] 8.9 mg/dL 8.2-10.2 [facility] Carbon dioxide, total [Moles /volume] in Serum or PlasmaOrdered By: Delano Mondragon on 11-04-2022 CO2 [Moles/Vol] 17.3 mmol/L 22.0-30.0 [facility] Chloride [Moles/volume] in S james or PlasmaOrdered By: Delano Mondragon on 11-04-2022 Chloride [Moles/Vol] 112 mmol/L 95-[address] [facility] Color Auto (U)Ordered By: Jose M Burgos on 11-04-2022 Color (U) Yellow Yellow [facility] Creatinine and Glomerular fi ltration rate.predicted panel (S/P/Bld)Ordered By: Delano Mondragon on 11-04-2022 Creatinine [Mass/Vol] 5.77 mg/dL 0.64-1.27 [facility] Eosinophils Auto (Bld) [#/Vo l]Ordered By: Delano Mondragon on 11-04-2022 Eosinophils (Bld) [#/Vol] 0.3 10*3/uL 0.0-0.45 [facility] Eosinophils/100 WBC Auto (Bl d)Ordered By: Delano Mondragon on 11-04-2022 Eosinophils/100 WBC (Bld) 2.7 % . [facility] Erythrocyte distribution wid th Auto (RBC) [Ratio]Ordered By: Delano Mondragon on 11-04-2022 Erythrocyte distribution width (RBC) [Ratio] 14.5 % 12.0-14.8 [facility] Estimated glomerular filtrat ion rate (GFR) non- AmericanOrdered By: Delano Mondragon on 11-04-2022 GFR/1.73 sq M.predicted among non-blacks MDRD (S/P/Bld) [Vol rate/Area] 10 mL/Min [facility] Globulin Calc (S) [Mass/Vol] Ordered By: Delano Mondragon on 11-04-2022 Globulin (S) [Mass/Vol] 4.2 g/dL [facility] Glucose [Mass/volume] in Ser um or PlasmaOrdered By: Delano Mondragon on 11-04-2022 Glucose [Mass/Vol] 82 mg/dL 70-100 [facility] Comment on above: ADA recommended refe rence rangeRandom Glucose Reference Range is dependent on time and content of last meal. Glucose of more than 200 mg/dL in a nonstressed, ambulatory subject supports the diagnosis of Diabetes Mellitus. Hematocrit Auto (Bld) [Volum e fraction]Ordered By: Delano Mondragon on 11-04-2022 Hematocrit (Bld) [Volume fraction] 30.2 % 38.8-50.0 [facility] Hemoglobin [Mass/volume] in BloodOrdered By: Delano Mondragon on 11-04-2022 Hemoglobin (Bld) [Mass/Vol] 9.8 g/dL 13.0-17.0 [facility] Ketones Auto test strip (U) [Mass/Vol]Ordered By: Millie Burgos on 11-04-2022 Ketones (U) [Mass/Vol] Negative Negative [facility] Laboratory - Chemistry and C hemistry - challengeOrdered By: Millie Burgos on 11-04-2022 Magnesium [Mass/Vol] 1.6 mg/dL 1.6-2.[address] [facility] Natriuretic peptide B (Bld) [Mass/Vol] 27.0 pg/mL 5-100 [facility] Laboratory - CoagulationOrde red By: Millie Burgos on 11-04-2022 PT Coag (PPP) [Time] 12.4 s 9.0-12.[address] [facility] Laboratory - UrinalysisOrder ed By: Millie Burgos on 11-04-2022 Hyaline casts LM Ql (Urine sed) 0-8 [LPF] 0-8 [facility] Leukocytes [#/volume] correc scott for nucleated erythrocytes in Blood by Automated counOrdered By: Delano Mondragon on 11-04-2022 WBC corrected for nucl RBC Auto (Bld) [#/Vol] 12.2 10*3/uL 4.1-10.5 [facility] Lymphocytes Auto (Bld) [#/Vo l]Ordered By: Delano Mondragon on 11-04-2022 Lymphocytes (Bld) [#/Vol] 1.5 10*3/uL 1.00-4.8 [facility] Lymphocytes/100 WBC Auto (Bl d)Ordered By: Delano Mondragon on 11-04-2022 Lymphocytes/100 WBC (Bld) 12.4 % . [facility] MCH Auto (RBC) [Entitic mass ]Ordered By: Delano Mondragon on 11-04-2022 MCH (RBC) [Entitic mass] 29.6 pg 27.5-35.2 [facility] MCHC Auto (RBC) [Mass/Vol]Or dered By: Delano Mondragon on 11-04-2022 MCHC (RBC) [Mass/Vol] 32.6 g/dL 32.5-35.6 [facility] MCV Auto (RBC) [Entitic vol] Ordered By: Delano Mondragon on 11-04-2022 MCV (RBC) [Entitic vol] 90.9 fL 83.5-101 [facility] Monocyte distribution width [Entitic volume] in Blood by AutomatedOrdered By: Delano Mondragon on 11-04-2022 Monocyte distribution width Auto (Bld) [Entitic vol] 17.32 % 0.00-20.00 [facility] Monocytes Auto (Bld) [#/Vol] Ordered By: Delano Mondragon on 11-04-2022 Monocytes (Bld) [#/Vol] 1.1 10*3/uL 0.0-0.8 [facility] Monocytes/100 WBC Auto (Bld) Ordered By: Delano Mondragon on 11-04-2022 Monocytes/100 WBC (Bld) 9.0 % . [facility] Neutrophils Auto (Bld) [#/Vo l]Ordered By: Delano Mondragon on 11-04-2022 Neutrophils (Bld) [#/Vol] 9.1 10*3/uL 1.8-7.7 [facility] Neutrophils/100 WBC Auto (Bl d)Ordered By: Delano Mondragon on 11-04-2022 Neutrophils/100 WBC (Bld) 74.8 % . [facility] Nitrite Test strip Ql (U)Ord ered By: Millie Burgos on 11-04-2022 Nitrite Ql (U) Negative Negative [facility] No Panel InformationOrdered By: Delano Mondragon on 11-04-2022 Estimated GFR () 13 mL/Min [facility] Comment on above: GFR estimated refere nce range: According to KDOQI guidelines, <60 ml/min/1.73m2 is sufficient to diagnose a patient with chronic kidney disease. Pharmacy Creatinine Clearance (Chem 22.99 [facility] Nucleated erythrocytes [Pres ence] in Blood by Automated countOrdered By: Delano Mondragon on 11-04-2022 Nucleated RBC Auto Ql (Bld) 0.0 /100{WBC} 0-0.5 [facility] Phosphate [Mass/volume] in S james or PlasmaOrdered By: Millie Burgos on 11-04-2022 Phosphate [Mass/Vol] 3.8 mg/dL 2.5-4.[address] [facility] Platelet mean volume Auto (B ld) [Entitic vol]Ordered By: Delano Mondragon on 11-04-2022 Platelet mean volume (Bld) [Entitic vol] 6.7 fL 6.6-10.1 [facility] Platelet poor plasma interna tional normalized ratio (INR) by coagulation assay (relatOrdered By: Millie Burgos on 11-04-2022 INR Coag (PPP) [Relative time] 1.1 {INR} [facility] Comment on above: INR Therapeutic Rang e A) Pre- and Peroperative OAT started two weeks before surgery. NOT HIP SURGERY: 1.5 - 2.5 HIP SURGERY: 2 - 3B) Primary and secondary prevention of venous THROMBOSIS: 2 - 3C) Active venous thrombosis, pulmonary embolismand prevention of recurrent venous thrombosis: 2 - 3D) Prevention of arterial thromboembolismincluding patients with mechanical heart valves: 3 - 4.5 Platelets Auto (Bld) [#/Vol] Ordered By: Delano Mondragon on 11-04-2022 Platelets (Bld) [#/Vol] 418 10*3/uL 150-450 [facility] Potassium [Moles/volume] in Serum or PlasmaOrdered By: Delano Mondragon on 11-04-2022 Potassium [Moles/Vol] 5.3 mmol/L 3.5-5.1 [facility] Protein Auto test strip (U) [Mass/Vol]Ordered By: Millie Burgos on 11-04-2022 Protein (U) [Mass/Vol] 300 mg/dL Negative [facility] Protein [Mass/volume] in Ser um or PlasmaOrdered By: Delano Mondragon on 11-04-2022 Protein [Mass/Vol] 7.5 g/dL 6.1-7.9 [facility] RBC Auto (Bld) [#/Vol]Ordere d By: Delano Mondragon on 11-04-2022 RBC (Bld) [#/Vol] 3.32 10*6/uL 3.90-5.60 [facility] Serum or plasma alanine lawson otransferase measurement without P-5'-P (enzymatic activiOrdered By: Delano Mondragon on 11-04-2022 ALT No additional P-5'-P [Catalytic activity/Vol] 23 U/L 10-60 [facility] Serum or plasma albumin/glob ulin mass ratioOrdered By: Delano Mondragon on 11-04-2022 Albumin/Globulin [Mass ratio] 0.8 {ratio} [facility] Serum or plasma anion gap de terminationOrdered By: Delano Mondragon on 11-04-2022 Anion gap [Moles/Vol] 14.0 mmol/L 6.0-15.0 [facility] Sodium [Moles/volume] in Ser um or PlasmaOrdered By: Delano Mondragon on 11-04-2022 Sodium [Moles/Vol] 138 mmol/L 136-146 [facility] Specific gravity Auto test s trip (U) [Rel density]Ordered By: Millie Burgos on 11-04-2022 Specific gravity (U) [Rel density] 1.013 1.001-1.030 [facility] Squamous epithelial cells de tection in urine sediment by light microscopyOrdered By: Millie Burgos on 11-04-2022 Epithelial cells.squamous LM Ql (Urine sed) 0-1 [HPF] 0-2 [facility] Troponin I.cardiac [Mass/vol ume] in Serum or Plasma by High sensitivity methodOrdered By: Millie Burgos on 11-04-2022 Troponin I.cardiac High sensitivity method [Mass/Vol] 10 pg/mL 0-20 [facility] Urea nitrogen [Mass/volume] in Serum or PlasmaOrdered By: Delano Mondragon on 11-04-2022 Urea nitrogen [Mass/Vol] 52 mg/dL 9-23 [facility] Urine bacteria detection by automated methodOrdered By: Millie Burgos on 11-04-2022 Bacteria Auto Ql (U) None seen None Seen [facility] Urine clarity by refractomet ry automatedOrdered By: Millie Burgos on 11-04-2022 Clarity Refractometry automated (U) Clear Clear [facility] Urine glucose measurement by automated test strip (mass/volume)Ordered By: Millie Burgos on 11-04-2022 Glucose Auto test strip (U) [Mass/Vol] 100 mg/dL Normal [facility] Urine hemoglobin detection b y automated test stripOrdered By: Millie Burgos on 11-04-2022 Hemoglobin Auto test strip Ql (U) 1+ Negative [facility] Urine leukocyte esterase det ection by automated test stripOrdered By: Millie Burgos on 11-04-2022 Leukocyte esterase Auto test strip Ql (U) Negative Negative [facility] Urobilinogen Auto test strip (U) [Mass/Vol]Ordered By: Millie Burgos on 11-04-2022 Urobilinogen (U) [Mass/Vol] Normal mg/dL Normal [facility] WBC Auto (Bld) [#/Vol]Ordere d By: Delano Mondragon on 11-04-2022 WBC (Bld) [#/Vol] 12.2 10*3/uL 4.1-10.5 [facility] pH Auto test strip (U)Ordere d By: Millie Burgos on 11-04-2022 pH (U) 5.5 [pH] 5.0-9.0 [facility] Albumin [Mass/volume] in Ser um or PlasmaOrdered By: Ada Uriostegui on 11-02-2022 Albumin [Mass/Vol] 3.3 g/dL 3.2-5.5 [facility] Automated erythrocytes count in urine sediment (number/area)Ordered By: Ada Whelanr on 11-02-2022 RBC Auto (Urine sed) [#/Area] 1-2 [HPF] 0-4 [facility] Automated leukocytes count i n urine sediment (number/area)Ordered By: Ada Uriostegui on 11-02-2022 WBC Auto (Urine sed) [#/Area] 0-1 [HPF] 0-4 [facility] Bilirubin Test strip Ql (U)O rdered By: Ada Uriostegui on 11-02-2022 Bilirubin Ql (U) Negative Negative [facility] CT biopsyOrdered By: Jonathan ellisir on 11-02-2022 Transferrin [Mass/Vol] 270 mg/dL 180-380 [facility] Calcium [Mass/volume] in Ser um or PlasmaOrdered By: Ada Uriostegui on 11-02-2022 Calcium [Mass/Vol] 8.3 mg/dL 8.2-10.2 [facility] Carbon dioxide, total [Moles /volume] in Serum or PlasmaOrdered By: Ada Uriostegui on 11-02-2022 CO2 [Moles/Vol] 18.0 mmol/L 22.0-30.0 [facility] Chloride [Moles/volume] in S james or PlasmaOrdered By: Ada Uriostegui on 11-02-2022 Chloride [Moles/Vol] 112 mmol/L 95-[address] [facility] Color Auto (U)Ordered By: Ab akhil Uriostegui on 11-02-2022 Color (U) Yellow Yellow [facility] Creatinine and Glomerular fi ltration rate.predicted panel (S/P/Bld)Ordered By: Ada Uriostegui on 11-02-2022 Creatinine [Mass/Vol] 5.16 mg/dL 0.64-1.27 [facility] Comment on above: Delta: 5.79 on 11/01 Erythrocyte distribution wid th Auto (RBC) [Ratio]Ordered By: Ada Uriostegui on 11-02-2022 Erythrocyte distribution width (RBC) [Ratio] 14.4 % 12.0-14.8 [facility] Estimated glomerular filtrat ion rate (GFR) non- AmericanOrdered By: Ada Uriostegui on 11-02-2022 GFR/1.73 sq M.predicted among non-blacks MDRD (S/P/Bld) [Vol rate/Area] 12 mL/Min [facility] Ferritin [Mass/volume] in Se rum or PlasmaOrdered By: Ada Uriostegui on 11-02-2022 Ferritin [Mass/Vol] 434.0 ng/mL 23.9-336.[address] [facility] Glucose [Mass/volume] in Ser um or PlasmaOrdered By: Ada Uriostegui on 11-02-2022 Glucose [Mass/Vol] 165 mg/dL 70-100 [facility] Comment on above: ADA recommended refe rence rangeRandom Glucose Reference Range is dependent on time and content of last meal. Glucose of more than 200 mg/dL in a nonstressed, ambulatory subject supports the diagnosis of Diabetes Mellitus. Hematocrit Auto (Bld) [Volum e fraction]Ordered By: Ada Uriostegui on 11-02-2022 Hematocrit (Bld) [Volume fraction] 30.1 % 38.8-50.0 [facility] Hemoglobin [Mass/volume] in BloodOrdered By: Ada Uriostegui 11-02-2022 Hemoglobin (Bld) [Mass/Vol] 9.8 g/dL 13.0-17.0 [facility] Iron [Mass/volume] in Serum or PlasmaOrdered By: Ada Uriostegui on 11-02-2022 Iron [Mass/Vol] 41 ug/dL 40-160 [facility] Iron binding capacity [Mass/ volume] in Serum or PlasmaOrdered By: Ada Uriostegui on 11-02-2022 Iron binding capacity [Mass/Vol] 378 ug/dL 255-450 [facility] Iron saturation [Mass Fracti on] in Serum or PlasmaOrdered By: Ada Uriostegui on 11-02-2022 Iron saturation [Mass fraction] 10.8 % 20-50 [facility] Ketones Auto test strip (U) [Mass/Vol]Ordered By: Ada Uriostegui on 11-02-2022 Ketones (U) [Mass/Vol] Negative Negative [facility] - Chemistry and C hemistry - challengeOrdered By: Ada Uriostegui on 11-02-2022 Magnesium [Mass/Vol] 1.7 mg/dL 1.6-2.[address] [facility] Laboratory - UrinalysisOrder ed By: Ada Uriostegui on 11-02-2022 Hyaline casts LM Ql (Urine sed) None seen [LPF] 0-8 [facility] Leukocytes [#/volume] correc scott for nucleated erythrocytes in Blood by Automated counOrdered By: Ada Uriostegui on 11-02-2022 WBC corrected for nucl RBC Auto (Bld) [#/Vol] 10.9 10*3/uL 4.1-10.5 [facility] MCH Auto (RBC) [Entitic mass ]Ordered By: Ada Uriostegui on 11-02-2022 MCH (RBC) [Entitic mass] 29.8 pg 27.5-35.2 [facility] MCHC Auto (RBC) [Mass/Vol]Or dered By: Aad Uriostegui on 11-02-2022 MCHC (RBC) [Mass/Vol] 32.5 g/dL 32.5-35.6 [facility] MCV Auto (RBC) [Entitic vol] Ordered By: Ada Uriostegui on 11-02-2022 MCV (RBC) [Entitic vol] 91.5 fL 83.5-101 [facility] Nitrite Test strip Ql (U)Ord ered By: Ada Uriostegui on 11-02-2022 Nitrite Ql (U) Negative Negative [facility] No Panel InformationOrdered By: Ada Uriostegui on 11-02-2022 25-Hydroxy Vitamin D Total 12.4 ng/mL 30-100 [facility] Comment on above: VITAMIN D STATUS 25( [place])VITAMIN D RANGE (ng/mL) Deficient <20 Insufficient 20 to <30Sufficient 30 to 100Reference: Sophy MF,Glendy BARTH, Nitin RAMOS, et al. Evaluation,treatment, and prevention of vitamin D deficiency; an Endocrine Society clinical practice guideline. JCEM. 2010; 96(7):1911-30. Estimated GFR () 14 mL/Min [facility] Comment on above: GFR estimated refere nce range: According to KDOQI guidelines, <60 ml/min/1.73m2 is sufficient to diagnose a patient with chronic kidney disease. Pharmacy Creatinine Clearance (Chem N/A [facility] Parathyrin.intact [Mass/volu me] in Serum or PlasmaOrdered By: Ada Uriostegui on 11-02-2022 Parathyrin.intact [Mass/Vol] 204.7 pg/mL 12-88 [facility] Phosphate [Mass/volume] in S james or PlasmaOrdered By: Ada Uriostegui on 11-02-2022 Phosphate [Mass/Vol] 3.9 mg/dL 2.5-4.[address] [facility] Platelet mean volume Auto (B ld) [Entitic vol]Ordered By: Aad Uriostegui on 11-02-2022 Platelet mean volume (Bld) [Entitic vol] 7.0 fL 6.6-10.1 [facility] Platelets Auto (Bld) [#/Vol] Ordered By: Ada Uriostegui on 11-02-2022 Platelets (Bld) [#/Vol] 323 10*3/uL 150-450 [facility] Potassium [Moles/volume] in Serum or PlasmaOrdered By: Ada Uriostegui on 11-02-2022 Potassium [Moles/Vol] 5.9 mmol/L 3.5-5.1 [facility] Protein Auto test strip (U) [Mass/Vol]Ordered By: Ada Uriostegui on 11-02-2022 Protein (U) [Mass/Vol] 300 mg/dL Negative [facility] RBC Auto (Bld) [#/Vol]Ordere d By: Ada Uriostegui on 11-02-2022 RBC (Bld) [#/Vol] 3.29 10*6/uL 3.90-5.60 [facility] Serum or plasma anion gap de terminationOrdered By: Ada Uriostegui on 11-02-2022 Anion gap [Moles/Vol] 12.9 mmol/L 6.0-15.0 [facility] Sodium [Moles/volume] in Ser um or PlasmaOrdered By: Ada Uriostegui on 11-02-2022 Sodium [Moles/Vol] 137 mmol/L 136-146 [facility] Specific gravity Auto test s trip (U) [Rel density]Ordered By: Ada Uriostegui on 11-02-2022 Specific gravity (U) [Rel density] 1.011 1.001-1.030 [facility] Squamous epithelial cells de tection in urine sediment by light microscopyOrdered By: Ada Uriostegui on 11-02-2022 Epithelial cells.squamous LM Ql (Urine sed) None seen [HPF] 0-2 [facility] Urate [Mass/volume] in Serum or PlasmaOrdered By: Ada Uriostegui on 11-02-2022 Urate [Mass/Vol] 5.3 mg/dL 2.6-7.2 [facility] Urea nitrogen [Mass/volume] in Serum or PlasmaOrdered By: Ada Uriostegui on 11-02-2022 Urea nitrogen [Mass/Vol] 58 mg/dL 9-23 [facility] Urine bacteria detection by automated methodOrdered By: Ada Uriostegui on 11-02-2022 Bacteria Auto Ql (U) None seen None Seen [facility] Urine clarity by refractomet ry automatedOrdered By: Ada Uriostegui on 11-02-2022 Clarity Refractometry automated (U) Clear Clear [facility] Urine glucose measurement by automated test strip (mass/volume)Ordered By: Ada Uriostegui on 11-02-2022 Glucose Auto test strip (U) [Mass/Vol] 250 mg/dL Normal [facility] Urine hemoglobin detection b y automated test stripOrdered By: Ada Uriostegui on 11-02-2022 Hemoglobin Auto test strip Ql (U) 1+ Negative [facility] Urine leukocyte esterase det ection by automated test stripOrdered By: Ada Uriostegui on 11-02-2022 Leukocyte esterase Auto test strip Ql (U) Negative Negative [facility] Urobilinogen Auto test strip (U) [Mass/Vol]Ordered By: Ada Uriostegui on 11-02-2022 Urobilinogen (U) [Mass/Vol] Normal mg/dL Normal [facility] pH Auto test strip (U)Ordere d By: Ada Uriostegui on 11-02-2022 pH (U) 5.5 [pH] 5.0-9.0 [facility] Activated partial thrombopla stin time (aPTT) in platelet poor plasma by coagulation aOrdered By: Mary Hill on 11-01-2022 aPTT Coag (PPP) [Time] 34.7 s 25.1-36.5 [facility] Alkaline phosphatase [Enzyma tic activity/volume] in Serum or PlasmaOrdered By: Mary Hill on 11-01-2022 ALP [Catalytic activity/Vol] 48 U/L 32-92 [facility] Aspartate aminotransferase [ Enzymatic activity/volume] in Serum or PlasmaOrdered By: Mary Hill on 11-01-2022 AST [Catalytic activity/Vol] 22 U/L 10-42 [facility] Basophils Auto (Bld) [#/Vol] Ordered By: Mary Hill on 11-01-2022 Basophils (Bld) [#/Vol] 0.1 10*3/uL 0.0-0.2 [facility] Basophils/100 WBC Auto (Bld) Ordered By: Mary Hill on 11-01-2022 Basophils/100 WBC (Bld) 0.5 % . [facility] Bilirubin.total [Mass/volume ] in Serum or PlasmaOrdered By: Mary Hill on 11-01-2022 Bilirubin [Mass/Vol] 0.4 mg/dL 0.3-1.[address] [facility] Body fluid albumin measureme nt (mass/volume)Ordered By: Mary Hill on 11-01-2022 Albumin (Body fld) [Mass/Vol] 3.4 g/dL 3.2-5.5 [facility] Calcium [Mass/volume] in Ser um or PlasmaOrdered By: Mary Hill on 11-01-2022 Calcium [Mass/Vol] 8.6 mg/dL 8.2-10.2 [facility] Carbon dioxide, total [Moles /volume] in Serum or PlasmaOrdered By: Mary Hill on 11-01-2022 CO2 [Moles/Vol] 16.4 mmol/L 22.0-30.0 [facility] Chloride [Moles/volume] in S james or PlasmaOrdered By: Mary Hill on 11-01-2022 Chloride [Moles/Vol] 109 mmol/L 95-[address] [facility] Creatinine and Glomerular fi ltration rate.predicted panel (S/P/Bld)Ordered By: Mary Hill on 11-01-2022 Creatinine [Mass/Vol] 5.79 mg/dL 0.64-1.27 [facility] Eosinophils Auto (Bld) [#/Vo l]Ordered By: Mary Hill on 11-01-2022 Eosinophils (Bld) [#/Vol] 0.3 10*3/uL 0.0-0.45 [facility] Eosinophils/100 WBC Auto (Bl d)Ordered By: Mary Hill on 11-01-2022 Eosinophils/100 WBC (Bld) 2.8 % . [facility] Erythrocyte distribution wid th Auto (RBC) [Ratio]Ordered By: Mary Hill on 11-01-2022 Erythrocyte distribution width (RBC) [Ratio] 14.9 % 12.0-14.8 [facility] Estimated glomerular filtrat ion rate (GFR) non- AmericanOrdered By: Mary Hill on 11-01-2022 GFR/1.73 sq M.predicted among non-blacks MDRD (S/P/Bld) [Vol rate/Area] 10 mL/Min [facility] Fecal occult blood detection by immunochemistryOrdered By: Mary Hill on 11-01-2022 Hemoglobin.gastrointes tinal Ql (Stl) [facility] Hemoglobin.gastrointes tinal Ql (Stl) [facility] Globulin Calc (S) [Mass/Vol] Ordered By: Mary Hill on 11-01-2022 Globulin (S) [Mass/Vol] 4.0 g/dL [facility] Glucose Glucometer (BldC) [M ass/Vol]Ordered By: Mary Hill on 11-01-2022 Glucose [Mass/Vol] 55 mg/dL [facility] Comment on above: Random Glucose Refer ence Range is dependent on time and content of last meal. Glucose of more than 200 mg/dL in a nonstressed, ambulatory subject supports the diagnosis of Diabetes Mellitus. Glucose [Mass/volume] in Ser um or PlasmaOrdered By: Mary Hill on 11-01-2022 Glucose [Mass/Vol] 80 mg/dL 70-100 [facility] Comment on above: ADA recommended refe rence rangeRandom Glucose Reference Range is dependent on time and content of last meal. Glucose of more than 200 mg/dL in a nonstressed, ambulatory subject supports the diagnosis of Diabetes Mellitus. Hematocrit Auto (Bld) [Volum e fraction]Ordered By: Mary Hill on 11-01-2022 Hematocrit (Bld) [Volume fraction] 29.9 % 38.8-50.0 [facility] Hemoglobin [Mass/volume] in BloodOrdered By: Mary Hill on 11-01-2022 Hemoglobin (Bld) [Mass/Vol] 9.8 g/dL 13.0-17.0 [facility] Laboratory - Chemistry and C hemistry - challengeOrdered By: Mary Hill on 11-01-2022 Natriuretic peptide B (Bld) [Mass/Vol] 32.0 pg/mL 5-100 [facility] Laboratory - CoagulationOrde red By: Mary Hill on 11-01-2022 PT Coag (PPP) [Time] 12.3 s 9.0-12.[address] [facility] Leukocytes [#/volume] correc scott for nucleated erythrocytes in Blood by Automated counOrdered By: Mary Hill on 11-01-2022 WBC corrected for nucl RBC Auto (Bld) [#/Vol] 12.0 10*3/uL 4.1-10.5 [facility] Lymphocytes Auto (Bld) [#/Vo l]Ordered By: Mary Hill on 11-01-2022 Lymphocytes (Bld) [#/Vol] 1.7 10*3/uL 1.00-4.8 [facility] Lymphocytes/100 WBC Auto (Bl d)Ordered By: Mary Hill on 11-01-2022 Lymphocytes/100 WBC (Bld) 14.6 % . [facility] MCH Auto (RBC) [Entitic mass ]Ordered By: Mary Hill on 11-01-2022 MCH (RBC) [Entitic mass] 29.6 pg 27.5-35.2 [facility] MCHC Auto (RBC) [Mass/Vol]Or dered By: Mary Hill on 11-01-2022 MCHC (RBC) [Mass/Vol] 32.7 g/dL 32.5-35.6 [facility] MCV Auto (RBC) [Entitic vol] Ordered By: Mary Hill on 11-01-2022 MCV (RBC) [Entitic vol] 90.6 fL 83.5-101 [facility] Monocyte %Ordered By: Jacki Hill on 11-01-2022 Monocyte % 23 umol/L 11-35 [facility] Monocyte distribution width [Entitic volume] in Blood by AutomatedOrdered By: Mary Hill on 11-01-2022 Monocyte distribution width Auto (Bld) [Entitic vol] 14.78 % 0.00-20.00 [facility] Monocytes Auto (Bld) [#/Vol] Ordered By: Mary Hill on 11-01-2022 Monocytes (Bld) [#/Vol] 1.1 10*3/uL 0.0-0.8 [facility] Monocytes/100 WBC Auto (Bld) Ordered By: Mary Hill on 11-01-2022 Monocytes/100 WBC (Bld) 9.6 % . [facility] Neutrophils Auto (Bld) [#/Vo l]Ordered By: Mary Hill on 11-01-2022 Neutrophils (Bld) [#/Vol] 8.7 10*3/uL 1.8-7.7 [facility] Neutrophils/100 WBC Auto (Bl d)Ordered By: Mary Hill on 11-01-2022 Neutrophils/100 WBC (Bld) 72.5 % . [facility] No Panel InformationOrdered By: Mary Hill on 11-01-2022 Bedside Glucose Comment See comment [facility] Comment on above: Glu2: WILL NOTIFY DR /RN Estimated GFR () 13 mL/Min [facility] Comment on above: GFR estimated refere nce range: According to KDOQI guidelines, <60 ml/min/1.73m2 is sufficient to diagnose a patient with chronic kidney disease. Pharmacy Creatinine Clearance (Chem 23.31 [facility] Nucleated erythrocytes [Pres ence] in Blood by Automated countOrdered By: Mary Hill on 11-01-2022 Nucleated RBC Auto Ql (Bld) 0.1 /100{WBC} 0-0.5 [facility] Platelet mean volume Auto (B ld) [Entitic vol]Ordered By: Mary Hill on 11-01-2022 Platelet mean volume (Bld) [Entitic vol] 7.0 fL 6.6-10.1 [facility] Platelet poor plasma interna tional normalized ratio (INR) by coagulation assay (relatOrdered By: Mary Hill on 11-01-2022 INR Coag (PPP) [Relative time] 1.1 {INR} [facility] Comment on above: INR Therapeutic Rang e A) Pre- and Peroperative OAT started two weeks before surgery. NOT HIP SURGERY: 1.5 - 2.5 HIP SURGERY: 2 - 3B) Primary and secondary prevention of venous THROMBOSIS: 2 - 3C) Active venous thrombosis, pulmonary embolismand prevention of recurrent venous thrombosis: 2 - 3D) Prevention of arterial thromboembolismincluding patients with mechanical heart valves: 3 - 4.5 Platelets Auto (Bld) [#/Vol] Ordered By: Mary Hill on 11-01-2022 Platelets (Bld) [#/Vol] 347 10*3/uL 150-450 [facility] Potassium [Moles/volume] in Serum or PlasmaOrdered By: Mary Hill on 11-01-2022 Potassium [Moles/Vol] 4.9 mmol/L 3.5-5.1 [facility] Protein [Mass/volume] in Ser um or PlasmaOrdered By: Mary Hill on 11-01-2022 Protein [Mass/Vol] 7.4 g/dL 6.1-7.9 [facility] RBC Auto (Bld) [#/Vol]Ordere d By: Mary Hill on 11-01-2022 RBC (Bld) [#/Vol] 3.30 10*6/uL 3.90-5.60 [facility] Serum or plasma alanine lawson otransferase measurement without P-5'-P (enzymatic activiOrdered By: Mary Hill on 11-01-2022 ALT No additional P-5'-P [Catalytic activity/Vol] 28 U/L 10-60 [facility] Serum or plasma albumin/glob ulin mass ratioOrdered By: Mary Hill on 11-01-2022 Albumin/Globulin [Mass ratio] 0.9 {ratio} [facility] Serum or plasma anion gap de terminationOrdered By: Mary Hill on 11-01-2022 Anion gap [Moles/Vol] 17.5 mmol/L 6.0-15.0 [facility] Sodium [Moles/volume] in Ser um or PlasmaOrdered By: Mary Hill on 11-01-2022 Sodium [Moles/Vol] 138 mmol/L 136-146 [facility] Troponin I.cardiac [Mass/vol ume] in Serum or Plasma by High sensitivity methodOrdered By: Mary Hill on 11-01-2022 Troponin I.cardiac High sensitivity method [Mass/Vol] 7 pg/mL 0-20 [facility] Urea nitrogen [Mass/volume] in Serum or PlasmaOrdered By: Mary Hill on 11-01-2022 Urea nitrogen [Mass/Vol] 59 mg/dL 9-23 [facility] WBC Auto (Bld) [#/Vol]Ordere d By: Mary Hill on 11-01-2022 WBC (Bld) [#/Vol] 12.0 10*3/uL 4.1-10.5 [facility] VL Extremity Venous Duplex [place] 10-09-2022 VL Extremity Venous Duplex Lower [place] Preliminary Technologist Report A bilateral lower extremity venous study was performed. Right lower extremity: Appeared to be a normal venous study of the visualized veins of the right lower extremity. No evidence of acute or chronic DVT. Limited evaluation of the posterior tibial veins due to edema, but vessels appear to be patent. The peroneal veins were not visualized due to edema. Left lower extremity: Appeared to be a normal venous study of the visualized veins of the left lower extremity. No evidence of acute or chronic DVT. Limited evaluation of the peroneal veins due to edema, but vessels appear to be patent. Results were called to Shirley at Dr. Francois 12:35pm. Logistics Associate: Rea Tristan, RVT Radiologist Report Bilateral lower extremity venous duplex study: Clinical Information: Swelling and pain. Comparison: No priors. Findings: Color-flow and grayscale images of the veins of both lower extremities was performed. Right lower extremity shows no evidence of deep venous thrombosis. There were no abnormalities noted during compression and augmentation. Normal phasic flow was noted. No abnormal collateralization was seen. Left lower extremity shows no evidence of deep venous thrombosis. There were no abnormalities noted during compression and augmentation. Normal phasic flow was noted. No abnormal collateralization was seen. Conclusions: 1. Negative study for deep vein thrombosis. Final Signed by: Tasia Dawson MD Signed (Electronic Signature): 10.09.2022 2:10 pm Transcribed by: Rea Tristan Transcribed DT/TM: 10.09.2022 12:39 (If Report is Signed, Electronically Signed in Other Vendor System) Normal [facility] Albumin [Mass/volume] in Ser um or PlasmaOrdered By: Yolie Noe on 09-23-2022 Albumin [Mass/Vol] 3.3 g/dL 3.2-5.5 [facility] Basophils Auto (Bld) [#/Vol] Ordered By: Yolie Noe on 09-23-2022 Basophils (Bld) [#/Vol] 0.1 10*3/uL 0.0-0.2 [facility] Basophils/100 WBC Auto (Bld) Ordered By: Yolie Noe on 09-23-2022 Basophils/100 WBC (Bld) 0.8 % . [facility] Creatinine and Glomerular fi ltration rate.predicted panel (S/P/Bld)Ordered By: Yolie Noe on 09-23-2022 Creatinine [Mass/Vol] 5.82 mg/dL 0.64-1.27 [facility] Eosinophils Auto (Bld) [#/Vo l]Ordered By: Yolie Noe on 09-23-2022 Eosinophils (Bld) [#/Vol] 0.3 10*3/uL 0.0-0.45 [facility] Eosinophils/100 WBC Auto (Bl d)Ordered By: Yolie Noe on 09-23-2022 Eosinophils/100 WBC (Bld) 2.6 % . [facility] Erythrocyte distribution wid th Auto (RBC) [Ratio]Ordered By: Yolie Noe on 09-23-2022 Erythrocyte distribution width (RBC) [Ratio] 14.0 % 12.0-14.8 [facility] Estimated glomerular filtrat ion rate (GFR) non- AmericanOrdered By: Yolie Noe on 09-23-2022 GFR/1.73 sq M.predicted among non-blacks MDRD (S/P/Bld) [Vol rate/Area] 10 mL/Min [facility] Globulin Calc (S) [Mass/Vol] Ordered By: Yolie Noe on 09-23-2022 Globulin (S) [Mass/Vol] 3.6 g/dL [facility] Glucose Glucometer (BldC) [M ass/Vol]Ordered By: SVITLANA VILLANUEVA on 09-23-2022 Glucose [Mass/Vol] 151 mg/dL [facility] Comment on above: Random Glucose Refer ence Range is dependent on time and content of last meal. Glucose of more than 200 mg/dL in a nonstressed, ambulatory subject supports the diagnosis of Diabetes Mellitus. Hematocrit Auto (Bld) [Volum e fraction]Ordered By: Yolie Noe on 09-23-2022 Hematocrit (Bld) [Volume fraction] 33.0 % 38.8-50.0 [facility] Hemoglobin [Mass/volume] in BloodOrdered By: Yolie Noe on 09-23-2022 Hemoglobin (Bld) [Mass/Vol] 11.1 g/dL 13.0-17.0 [facility] Leukocytes [#/volume] correc scott for nucleated erythrocytes in Blood by Automated counOrdered By: Yoliemarie Noe on 09-23-2022 WBC corrected for nucl RBC Auto (Bld) [#/Vol] 9.9 10*3/uL 4.1-10.5 [facility] Lymphocytes Auto (Bld) [#/Vo l]Ordered By: Yolie Noe on 09-23-2022 Lymphocytes (Bld) [#/Vol] 2.7 10*3/uL 1.00-4.8 [facility] Lymphocytes/100 WBC Auto (Bl d)Ordered By: Yolie Noe on 09-23-2022 Lymphocytes/100 WBC (Bld) 27.6 % . [facility] MCH Auto (RBC) [Entitic mass ]Ordered By: Yolie Noe on 09-23-2022 MCH (RBC) [Entitic mass] 29.5 pg 27.5-35.2 [facility] MCHC Auto (RBC) [Mass/Vol]Or dered By: Yolie Noe on 09-23-2022 MCHC (RBC) [Mass/Vol] 33.5 g/dL 32.5-35.6 [facility] MCV Auto (RBC) [Entitic vol] Ordered By: Yolie Noe on 09-23-2022 MCV (RBC) [Entitic vol] 88.2 fL 83.5-101 [facility] Monocyte distribution width [Entitic volume] in Blood by AutomatedOrdered By: Yolie Neo on 09-23-2022 Monocyte distribution width Auto (Bld) [Entitic vol] 16.48 % 0.00-20.00 [facility] Monocytes Auto (Bld) [#/Vol] Ordered By: Yolie Noe on 09-23-2022 Monocytes (Bld) [#/Vol] 0.9 10*3/uL 0.0-0.8 [facility] Monocytes/100 WBC Auto (Bld) Ordered By: Yolie Noe on 09-23-2022 Monocytes/100 WBC (Bld) 8.8 % . [facility] Neutrophils Auto (Bld) [#/Vo l]Ordered By: Yolie Newmangosia on 09-23-2022 Neutrophils (Bld) [#/Vol] 5.9 10*3/uL 1.8-7.7 [facility] Neutrophils/100 WBC Auto (Bl d)Ordered By: Yolie Hasmukh on 09-23-2022 Neutrophils/100 WBC (Bld) 60.2 % . [facility] No Panel InformationOrdered By: Yolie Hasmukh on 09-23-2022 Estimated GFR () 12 mL/Min [facility] Comment on above: GFR estimated refere nce range: According to KDOQI guidelines, <60 ml/min/1.73m2 is sufficient to diagnose a patient with chronic kidney disease. Pharmacy Creatinine Clearance (Chem 22.77 [facility] Nucleated erythrocytes [Pres ence] in Blood by Automated countOrdered By: Yoliemarie Noe on 09-23-2022 Nucleated RBC Auto Ql (Bld) 0.1 /100{WBC} 0-0.5 [facility] Platelet mean volume Auto (B ld) [Entitic vol]Ordered By: Yolie Hasmukh on 09-23-2022 Platelet mean volume (Bld) [Entitic vol] 7.0 fL 6.6-10.1 [facility] Platelets Auto (Bld) [#/Vol] Ordered By: Yoliemarie Noe on 09-23-2022 Platelets (Bld) [#/Vol] 420 10*3/uL 150-450 [facility] Protein [Mass/volume] in Ser um or PlasmaOrdered By: Yolie Noe on 09-23-2022 Protein [Mass/Vol] 6.9 g/dL 6.1-7.9 [facility] RBC Auto (Bld) [#/Vol]Ordere d By: Yolie Hasmukh on 09-23-2022 RBC (Bld) [#/Vol] 3.74 10*6/uL 3.90-5.60 [facility] Serum or plasma alanine lawson otransferase measurement without P-5'-P (enzymatic activiOrdered By: Yolie Noe on 09-23-2022 ALT No additional P-5'-P [Catalytic activity/Vol] 19 U/L 10-60 [facility] Serum or plasma albumin/glob ulin mass ratioOrdered By: Yolie Hasmukh on 09-23-2022 Albumin/Globulin [Mass ratio] 0.9 {ratio} [facility] Serum or plasma alkaline elliot sphatase measurement (enzymatic activity/volume)Ordered By: Yolie Noe on 09-23-2022 ALP [Catalytic activity/Vol] 61 U/L 32-92 [facility] Serum or plasma anion gap de terminationOrdered By: Yolie Noe on 09-23-2022 Anion gap [Moles/Vol] 14.3 mmol/L 6.0-15.0 [facility] Serum or plasma aspartate am inotransferase measurement (enzymatic activity/volume)Ordered By: Yolie Noe on 09-23-2022 AST [Catalytic activity/Vol] 15 U/L 10-42 [facility] Serum or plasma calcium shante urement (mass/volume)Ordered By: Yolie Noe on 09-23-2022 Calcium [Mass/Vol] 8.6 mg/dL 8.2-10.2 [facility] Serum or plasma chloride alber surement (moles/volume)Ordered By: Yolie Noe on 09-23-2022 Chloride [Moles/Vol] 107 mmol/L 95-[address] [facility] Serum or plasma glucose shante urement (mass/volume)Ordered By: Yolie Noe on 09-23-2022 Glucose [Mass/Vol] 150 mg/dL 70-100 [facility] Comment on above: ADA recommended refe rence rangeRandom Glucose Reference Range is dependent on time and content of last meal. Glucose of more than 200 mg/dL in a nonstressed, ambulatory subject supports the diagnosis of Diabetes Mellitus. Serum or plasma potassium me asurement (moles/volume)Ordered By: Yolie Noe on 09-23-2022 Potassium [Moles/Vol] 4.0 mmol/L 3.5-5.1 [facility] Serum or plasma sodium measu rement (moles/volume)Ordered By: Yolie Noe on 09-23-2022 Sodium [Moles/Vol] 139 mmol/L 136-146 [facility] Serum or plasma total biliru bin measurement (mass/volume)Ordered By: Yolie Trentgosia on 09-23-2022 Bilirubin [Mass/Vol] 0.3 mg/dL 0.3-1.[address] [facility] Serum or plasma total carbon dioxide measurement (moles/volume)Ordered By: Yolie Noe on 09-23-2022 CO2 [Moles/Vol] 21.7 mmol/L 22.0-30.0 [facility] Serum or plasma urea nitroge n measurement (mass/volume)Ordered By: Yolie Trentgosia on 09-23-2022 Urea nitrogen [Mass/Vol] 70 mg/dL 9- [facility] WBC Auto (Bld) [#/Vol]Ordere d By: Yolie Noe on 09-23-2022 WBC (Bld) [#/Vol] 9.9 10*3/uL 4.1-10.5 [facility] Albumin [Mass/volume] in Ser um or PlasmaOrdered By: Ada Uriostegui on 08-03-2022 Albumin [Mass/Vol] 3.4 g/dL 3.2-5.5 [facility] CT biopsyOrdered By: Jonathan christensen on 08-03-2022 Transferrin [Mass/Vol] 270 mg/dL 180-380 [facility] Creatinine and Glomerular fi ltration rate.predicted panel (S/P/Bld)Ordered By: Ada Uriostegui on 08-03-2022 Creatinine [Mass/Vol] 4.98 mg/dL 0.64-1.27 [facility] Erythrocyte distribution wid th Auto (RBC) [Ratio]Ordered By: Ada Uriostegui on 08-03-2022 Erythrocyte distribution width (RBC) [Ratio] 14.4 % 12.0-14.8 [facility] Estimated glomerular filtrat ion rate (GFR) non- AmericanOrdered By: Ada Uriostegui on 08-03-2022 GFR/1.73 sq M.predicted among non-blacks MDRD (S/P/Bld) [Vol rate/Area] 12 mL/Min [facility] Ferritin [Mass/volume] in Se rum or PlasmaOrdered By: Ada Uriostegui on 08-03-2022 Ferritin [Mass/Vol] 331.3 ng/mL 23.9-336.[address] [facility] Hematocrit Auto (Bld) [Volum e fraction]Ordered By: Ada Uriostegui on 08-03-2022 Hematocrit (Bld) [Volume fraction] 31.6 % 38.8-50.0 [facility] Hemoglobin [Mass/volume] in BloodOrdered By: Ada Uriostegui on 08-03-2022 Hemoglobin (Bld) [Mass/Vol] 10.3 g/dL 13.0-17.0 [facility] Iron [Mass/volume] in Serum or PlasmaOrdered By: Ada Uriostegui on 08-03-2022 Iron [Mass/Vol] 90 ug/dL 40-160 [facility] Iron binding capacity [Mass/ volume] in Serum or PlasmaOrdered By: Ada Uriostegui on 08-03-2022 Iron binding capacity [Mass/Vol] 378 ug/dL 255-450 [facility] Iron saturation [Mass Fracti on] in Serum or PlasmaOrdered By: Ada Uriostegui on 08-03-2022 Iron saturation [Mass fraction] 23.0 % 20-50 [facility] MCH Auto (RBC) [Entitic mass ]Ordered By: Ada Uriostegui on 08-03-2022 MCH (RBC) [Entitic mass] 29.2 pg 27.5-35.2 [facility] MCHC Auto (RBC) [Mass/Vol]Or dered By: Ada Uriostegui on 08-03-2022 MCHC (RBC) [Mass/Vol] 32.6 g/dL 32.5-35.6 [facility] MCV Auto (RBC) [Entitic vol] Ordered By: Ada Uriostegui on 08-03-2022 MCV (RBC) [Entitic vol] 89.7 fL 83.5-101 [facility] No Panel InformationOrdered By: Ada Uriostegui on 08-03-2022 25-Hydroxy Vitamin D Total 14.6 ng/mL 30-100 [facility] Comment on above: VITAMIN D STATUS 25( [place])VITAMIN D RANGE (ng/mL) Deficient <20 Insufficient 20 to <30Sufficient 30 to 100Reference: Sophy MF,Glendy NC, Nitin RAMOS, et al. Evaluation,treatment, and prevention of vitamin D deficiency; an Endocrine Society clinical practice guideline. JCEM. 2010; 96(7):1911-30. Estimated GFR () 15 mL/Min [facility] Comment on above: GFR estimated refere nce range: According to KDOQI guidelines, <60 ml/min/1.73m2 is sufficient to diagnose a patient with chronic kidney disease. Pharmacy Creatinine Clearance (Chem N/A [facility] Phosphate [Mass/volume] in S james or PlasmaOrdered By: Ada Uriostegui on 08-03-2022 Phosphate [Mass/Vol] 3.1 mg/dL 2.5-4.[address] [facility] Platelet mean volume Auto (B ld) [Entitic vol]Ordered By: Ada Uriostegui on 08-03-2022 Platelet mean volume (Bld) [Entitic vol] 7.2 fL 6.6-10.1 [facility] Platelets Auto (Bld) [#/Vol] Ordered By: Ada Uriostegui on 08-03-2022 Platelets (Bld) [#/Vol] 390 10*3/uL 150-450 [facility] RBC Auto (Bld) [#/Vol]Ordere d By: Ada Moody on 08-03-2022 RBC (Bld) [#/Vol] 3.52 10*6/uL 3.90-5.60 [facility] Serum or plasma anion gap de terminationOrdered By: Ada Uriostegui on 08-03-2022 Anion gap [Moles/Vol] 14.6 mmol/L 6.0-15.0 [facility] Serum or plasma calcium shante urement (mass/volume)Ordered By: Ada Uriostegui on 08-03-2022 Calcium [Mass/Vol] 9.0 mg/dL 8.2-10.2 [facility] Serum or plasma chloride alber surement (moles/volume)Ordered By: Ada Uriostegui on 08-03-2022 Chloride [Moles/Vol] 105 mmol/L 95-[address] [facility] Serum or plasma glucose shante urement (mass/volume)Ordered By: Ada Uriostegui on 08-03-2022 Glucose [Mass/Vol] 188 mg/dL 70-100 [facility] Comment on above: ADA recommended refe rence rangeRandom Glucose Reference Range is dependent on time and content of last meal. Glucose of more than 200 mg/dL in a nonstressed, ambulatory subject supports the diagnosis of Diabetes Mellitus. Serum or plasma intact parat hyroid hormone measurement (mass/volume)Ordered By: Ada Uriostegui on 08-03-2022 Parathyrin.intact [Mass/Vol] 151.8 pg/mL [facility] Serum or plasma potassium me asurement (moles/volume)Ordered By: Aad Uriostegui on 08-03-2022 Potassium [Moles/Vol] 5.1 mmol/L 3.5-5.1 [facility] Serum or plasma sodium measu rement (moles/volume)Ordered By: Ada Uriostegui on 08-03-2022 Sodium [Moles/Vol] 139 mmol/L 136-146 [facility] Serum or plasma total carbon dioxide measurement (moles/volume)Ordered By: Ada Uriostegui on 08-03-2022 CO2 [Moles/Vol] 24.5 mmol/L 22.0-30.0 [facility] Serum or plasma urea nitroge n measurement (mass/volume)Ordered By: Ada Uriostegui on 08-03-2022 Urea nitrogen [Mass/Vol] 60 mg/dL 05-29 [facility] Serum or plasma uric acid me asurement (mass/volume)Ordered By: Ada Uriostegui on 08-03-2022 Urate [Mass/Vol] 5.6 mg/dL 2.6-7.2 [facility] WBC Auto (Bld) [#/Vol]Ordere d By: Ada Uriostegui on 08-03-2022 WBC (Bld) [#/Vol] 9.5 10*3/uL 4.1-10.5 [facility] Basophils Auto (Bld) [#/Vol] Ordered By: Yosef Castillo on 07-29-2022 Basophils (Bld) [#/Vol] 0.1 10*3/uL 0.0-0.2 [facility] Basophils/100 WBC Auto (Bld) Ordered By: Yosef Castillo on 07-29-2022 Basophils/100 WBC (Bld) 0.9 % . [facility] Beta-hydroxybutyric acid alber surementOrdered By: Yosef Castillo on 07-29-2022 Beta hydroxybutyrate [Mass/Vol] 0.25 mmol/L 0.05-0.27 [facility] Body fluid albumin measureme nt (mass/volume)Ordered By: Yosef Castillo on 07-29-2022 Albumin (Body fld) [Mass/Vol] 3.6 g/dL 3.2-5.5 [facility] Creatinine and Glomerular fi ltration rate.predicted panel (S/P/Bld)Ordered By: Yosef Castillo on 07-29-2022 Creatinine [Mass/Vol] 5.97 mg/dL 0.64-1.27 [facility] Eosinophils Auto (Bld) [#/Vo l]Ordered By: Yosef Castillo on 07-29-2022 Eosinophils (Bld) [#/Vol] 0.3 10*3/uL 0.0-0.45 [facility] Eosinophils/100 WBC Auto (Bl d)Ordered By: Yosef Castlilo on 07-29-2022 Eosinophils/100 WBC (Bld) 2.9 % . [facility] Erythrocyte distribution wid th Auto (RBC) [Ratio]Ordered By: Yosef Castillo on 07-29-2022 Erythrocyte distribution width (RBC) [Ratio] 14.1 % 12.0-14.8 [facility] Estimated glomerular filtrat ion rate (GFR) non- AmericanOrdered By: Yosef Castillo on 07-29-2022 GFR/1.73 sq M.predicted among non-blacks MDRD (S/P/Bld) [Vol rate/Area] 10 mL/Min [facility] Globulin Calc (S) [Mass/Vol] Ordered By: Yosef Castillo on 07-29-2022 Globulin (S) [Mass/Vol] 3.3 g/dL [facility] Glucose Glucometer (BldC) [M ass/Vol]Ordered By: Yosef Castillo on 07-29-2022 Glucose [Mass/Vol] 266 mg/dL [facility] Comment on above: Random Glucose Refer ence Range is dependent on time and content of last meal. Glucose of more than 200 mg/dL in a nonstressed, ambulatory subject supports the diagnosis of Diabetes Mellitus. Hematocrit Auto (Bld) [Volum e fraction]Ordered By: Yosef Castillo on 07-29-2022 Hematocrit (Bld) [Volume fraction] 32.7 % 38.8-50.0 [facility] Hemoglobin [Mass/volume] in BloodOrdered By: Yosef Castillo on 07-29-2022 Hemoglobin (Bld) [Mass/Vol] 10.8 g/dL 13.0-17.0 [facility] Laboratory - Chemistry and C hemistry - challengeOrdered By: Yosef Castillo on 07-29-2022 CO2 [Moles/Vol] 22.9 mmol/L 24.0-29.0 [facility] HCO3 (Bld) [Moles/Vol] 21.7 mmol/L 23.0-29.0 [facility] Lipase [Catalytic activity/Vol] 38.0 U/L 22-51 [facility] - Hematology and Cell countsOrdered By: Yosef Castillo on 07-29-2022 Nucleated RBC/100 WBC (Bld) [Ratio] 0.0 % 0-0.5 [facility] Leukocytes [#/volume] in Blo od by Automated countOrdered By: Yosef Castillo on 07-29-2022 WBC (Bld) [#/Vol] 11.0 10*3/uL 4.5-11.0 [facility] Lymphocytes Auto (Bld) [#/Vo l]Ordered By: Yosef Castillo on 07-29-2022 Lymphocytes (Bld) [#/Vol] 2.0 10*3/uL 1.00-4.8 [facility] Lymphocytes/100 WBC Auto (Bl d)Ordered By: Yosef Castillo on 07-29-2022 Lymphocytes/100 WBC (Bld) 17.9 % . [facility] MCH Auto (RBC) [Entitic mass ]Ordered By: Yosef Castillo on 07-29-2022 MCH (RBC) [Entitic mass] 29.4 pg 27.5-35.2 [facility] MCHC Auto (RBC) [Mass/Vol]Or dered By: Yosef Castillo on 07-29-2022 MCHC (RBC) [Mass/Vol] 33.0 g/dL 32.5-35.6 [facility] MCV Auto (RBC) [Entitic vol] Ordered By: Yosef Castillo on 07-29-2022 MCV (RBC) [Entitic vol] 88.8 fL 83.5-101 [facility] Monocytes Auto (Bld) [#/Vol] Ordered By: Yosef Castillo on 07-29-2022 Monocytes (Bld) [#/Vol] 0.7 10*3/uL 0.0-0.8 [facility] Monocytes/100 WBC Auto (Bld) Ordered By: Yosef Castillo on 07-29-2022 Monocytes/100 WBC (Bld) 5.9 % . [facility] Neutrophils Auto (Bld) [#/Vo l]Ordered By: Yosef Castillo on 07-29-2022 Neutrophils (Bld) [#/Vol] 8.0 10*3/uL 1.8-7.7 [facility] Neutrophils/100 WBC Auto (Bl d)Ordered By: Yosef Castillo on 07-29-2022 Neutrophils/100 WBC (Bld) 72.4 % . [facility] No Panel InformationOrdered By: Yosef Castillo on 07-29-2022 Blood Gas Critical Value See comment [facility] Comment on above: Critical Value metz d on: 07/29/2022 at 00:48 Blood Gas Sample Site Venous [facility] FiO2 21 % [facility] Venous Blood Base Excess -3.7 mmol/L -3.0-3.0 [facility] Venous Blood Oxygen Content 5.6 mmol/L 6.6-9.7 [facility] Venous Blood Oxygen Saturation 79.1 % 73.0-76.0 [facility] Venous Blood Partial Pressure CO2 40.4 mm[Hg] 38.0-50.0 [facility] Venous Blood Partial Pressure O2 41.6 mm[Hg] 35.0-45.0 [facility] Venous Blood pH 7.35 7.32-7.43 [facility] Estimated GFR () 12 mL/Min [facility] Comment on above: GFR estimated refere nce range: According to KDOQI guidelines, <60 ml/min/1.73m2 is sufficient to diagnose a patient with chronic kidney disease. Pharmacy Creatinine Clearance (Chem 21.83 [facility] Platelet mean volume Auto (B ld) [Entitic vol]Ordered By: Yosef Castillo on 07-29-2022 Platelet mean volume (Bld) [Entitic vol] 7.6 fL 6.6-10.1 [facility] Platelets Auto (Bld) [#/Vol] Ordered By: Yoesf Castillo on 07-29-2022 Platelets (Bld) [#/Vol] 382 10*3/uL 150-450 [facility] Protein [Mass/volume] in Ser um or PlasmaOrdered By: Yosef Castillo on 07-29-2022 Protein [Mass/Vol] 6.9 g/dL 6.1-7.9 [facility] RBC Auto (Bld) [#/Vol]Ordere d By: Yosef Castillo on 07-29-2022 RBC (Bld) [#/Vol] 3.68 10*6/uL 3.90-5.60 [facility] Serum or plasma alanine lawson otransferase measurement without P-5'-P (enzymatic activiOrdered By: Yosef Castillo on 07-29-2022 ALT No additional P-5'-P [Catalytic activity/Vol] 17 U/L 10-60 [facility] Serum or plasma albumin/glob ulin mass ratioOrdered By: Yosef Castillo on 07-29-2022 Albumin/Globulin [Mass ratio] 1.1 {ratio} [facility] Serum or plasma alkaline elliot sphatase measurement (enzymatic activity/volume)Ordered By: Yosef Castillo on 07-29-2022 ALP [Catalytic activity/Vol] 52 U/L 32-92 [facility] Serum or plasma anion gap de terminationOrdered By: Yosef Castillo on 07-29-2022 Anion gap [Moles/Vol] TNP [facility] Comment on above: Test not performed Serum or plasma aspartate am inotransferase measurement (enzymatic activity/volume)Ordered By: Yosef Castillo on 07-29-2022 AST [Catalytic activity/Vol] 26 U/L 10 [facility] Serum or plasma calcium shante urement (mass/volume)Ordered By: Yosef Castillo on 07-29-2022 Calcium [Mass/Vol] 8.9 mg/dL 8.2-10.2 [facility] Serum or plasma chloride alber surement (moles/volume)Ordered By: Yosef Castillo on 07-29-2022 Chloride [Moles/Vol] 105 mmol/L 95-[address] [facility] Serum or plasma glucose shante urement (mass/volume)Ordered By: Yosef Castillo on 07-29-2022 Glucose [Mass/Vol] 233 mg/dL 70-100 [facility] Comment on above: ADA recommended refe rence rangeRandom Glucose Reference Range is dependent on time and content of last meal. Glucose of more than 200 mg/dL in a nonstressed, ambulatory subject supports the diagnosis of Diabetes Mellitus. Serum or plasma potassium me asurement (moles/volume)Ordered By: Yosef Castillo on 07-29-2022 Potassium [Moles/Vol] 4.4 mmol/L 3.5-5.1 [facility] Serum or plasma sodium measu rement (moles/volume)Ordered By: Yosef Castillo on 07-29-2022 Sodium [Moles/Vol] 142 mmol/L 136-146 [facility] Serum or plasma total biliru bin measurement (mass/volume)Ordered By: Yosef Castillo on 07-29-2022 Bilirubin [Mass/Vol] 0.7 mg/dL 0.3-1.[address] [facility] Serum or plasma total carbon dioxide measurement (moles/volume)Ordered By: Yosef Castillo on 07-29-2022 CO2 [Moles/Vol] 21.9 mmol/L 22.0-30.0 [facility] Serum or plasma urea nitroge n measurement (mass/volume)Ordered By: Yosef Castillo on 07-29-2022 Urea nitrogen [Mass/Vol] 74 mg/dL 05-29 [facility] TSH DL <= 0.005 mIU/L QnOrde red By: Yosef Castillo on 07-29-2022 TSH Qn 2.69 m[IU]/L 0.45-5.33 [facility] Thyroxine (T4) free [Mass/vo lume] in Serum or PlasmaOrdered By: Yosef Castillo on 07-29-2022 Free T4 [Mass/Vol] 0.78 ng/dL 0.61-1.12 [facility] Troponin I.cardiac [Mass/vol ume] in Serum or Plasma by High sensitivity methodOrdered By: Yosef Castillo on 07-29-2022 Troponin I.cardiac High sensitivity method [Mass/Vol] 7 pg/mL 0-20 [facility] C [place] 07-20-2022 C Wound --- Final Light Growth of Enterococcus faecalis isolated with . Heavy Growth of Corynebacterium ulcerans All Corynebacterium species are sensitive to vancomycin and teicoplanin. Multiple resistance to penicillins macrolides, aminoglycosides, fluoroquinolones, tetracyclines, clindamycin, and cephalospirins. . This organism from this source may or may not be significant and is reported due to the relative number found on this culture. Consider the possibility of colonization or transient presence of the organism. ORGANISM [employer] -- SUSCEPTIBILITY - ORGANISM ID: [id number] ANTIBIOTIC INTERPRETATION JOYCE STATUS POS Enterococcus faecalis Ampicillin S <=2 V Gentamicin synergy S Syn-S V Levofloxacin S 2 V Penicillin S 4 V Streptomycin synergy S Syn-S V Tetracycline S <=1 V Vancomycin S 1 V Normal [facility] Comment on above: Performed By: #### W DC #### [facility] (DEFAULT) [id number] [place] [address] [facility] [address] [place] [address] No Panel Informationon 07-17 Body mass index (BMI) [Percentile] Per age and sex 0.1 {percentile} Invalid Interpretation Code [id number] Per age and sex 0.1 {percentile} Invalid Interpretation Code [place] [facility] Body fluid albumin measureme nt (mass/volume)Ordered By: Ada Uriostegui on 06-27-2022 Albumin (Body fld) [Mass/Vol] 3.6 g/dL 3.2-5.[address] [facility] [address] biopsyOrdered By: Jonathan christensen on 06-27-2022 Transferrin [Mass/Vol] 286 mg/dL 180-380 [facility] Creatinine and Glomerular fi ltration rate.predicted panel (S/P/Bld)Ordered By: Ada Uriostegui on 06-27-2022 Creatinine [Mass/Vol] 4.86 mg/dL 0.64-1.27 [facility] Erythrocyte distribution wid th Auto (RBC) [Ratio]Ordered By: Ada Uriostegui on 06-27-2022 Erythrocyte distribution width (RBC) [Ratio] 14.0 % 12.0-14.8 [facility] Estimated glomerular filtrat ion rate (GFR) non- AmericanOrdered By: Ada Uriostegui on 06-27-2022 GFR/1.73 sq M.predicted among non-blacks MDRD (S/P/Bld) [Vol rate/Area] 13 mL/Min [facility] Ferritin [Mass/volume] in Se rum or PlasmaOrdered By: Ada Uriostegui on 06-27-2022 Ferritin [Mass/Vol] 383.6 ng/mL 23.9-336.[address] [facility] Hematocrit Auto (Bld) [Volum e fraction]Ordered By: Ada Whelanr on 06-27-2022 Hematocrit (Bld) [Volume fraction] 37.2 % 38.8-50.0 [facility] Hemoglobin [Mass/volume] in BloodOrdered By: Ada Uriostegui on 06-27-2022 Hemoglobin (Bld) [Mass/Vol] 12.1 g/dL 13.0-17.0 [facility] Iron [Mass/volume] in Serum or PlasmaOrdered By: Ada Uriostegui on 06-27-2022 Iron [Mass/Vol] 70 ug/dL 40-160 [facility] Iron binding capacity [Mass/ volume] in Serum or PlasmaOrdered By: Ada Whelanr on 06-27-2022 Iron binding capacity [Mass/Vol] 400 ug/dL 255-450 [facility] Iron saturation [Mass Fracti on] in Serum or PlasmaOrdered By: Ada Uriostegui on 06-27-2022 Iron saturation [Mass fraction] 17.0 % 20-50 [facility] - Chemistry and C hemistry - challengeOrdered By: Ada Uriostegui on 06-27-2022 Magnesium [Mass/Vol] 1.9 mg/dL 1.6-2.[address] [facility] MCH Auto (RBC) [Entitic mass ]Ordered By: Ada Uriostegui on 06-27-2022 MCH (RBC) [Entitic mass] 29.2 pg 27.5-35.2 [facility] MCHC Auto (RBC) [Mass/Vol]Or dered By: Ada Uriostegui on 06-27-2022 MCHC (RBC) [Mass/Vol] 32.6 g/dL 32.5-35.6 [facility] MCV Auto (RBC) [Entitic vol] Ordered By: Ada Uriostegui on 06-27-2022 MCV (RBC) [Entitic vol] 89.7 fL 83.5-101 [facility] No Panel InformationOrdered By: Ada Uriostegui on 06-27-2022 25-Hydroxy Vitamin D Total 13.3 ng/mL 30-100 [facility] Comment on above: VITAMIN D STATUS 25( [place])VITAMIN D RANGE (ng/mL) Deficient <20 Insufficient 20 to <30Sufficient 30 to 100Reference: Sophy MF,Glendy BARTH, Nitin RAMOS, et al. Evaluation,treatment, and prevention of vitamin D deficiency; an Endocrine Society clinical practice guideline. JCEM. 2010; 96(7):1911-30. Estimated GFR () 15 mL/Min [facility] Comment on above: GFR estimated refere nce range: According to KDOQI guidelines, <60 ml/min/1.73m2 is sufficient to diagnose a patient with chronic kidney disease. Pharmacy Creatinine Clearance (Chem N/A [facility] Phosphate [Mass/volume] in S james or PlasmaOrdered By: Ada Uriostegui on 06-27-2022 Phosphate [Mass/Vol] 4.1 mg/dL 2.5-4.[address] [facility] Platelet mean volume Auto (B ld) [Entitic vol]Ordered By: Ada Uriostegui on 06-27-2022 Platelet mean volume (Bld) [Entitic vol] 7.3 fL 6.6-10.1 [facility] Platelets Auto (Bld) [#/Vol] Ordered By: Ada Uriostegui on 06-27-2022 Platelets (Bld) [#/Vol] 454 10*3/uL 150-450 [facility] RBC Auto (Bld) [#/Vol]Ordere d By: Aad Uriostegui on 06-27-2022 RBC (Bld) [#/Vol] 4.15 10*6/uL 3.90-5.60 [facility] Serum or plasma anion gap de terminationOrdered By: Ada Uriostegui on 06-27-2022 Anion gap [Moles/Vol] 15.2 mmol/L 6.0-15.0 [facility] Serum or plasma calcium shante urement (mass/volume)Ordered By: Ada Uriostegui on 06-27-2022 Calcium [Mass/Vol] 8.9 mg/dL 8.2-10.2 [facility] Serum or plasma chloride alber surement (moles/volume)Ordered By: Ada Uriostegui on 06-27-2022 Chloride [Moles/Vol] 103 mmol/L 95-[address] [facility] Serum or plasma glucose shante urement (mass/volume)Ordered By: Ada Uriostegui on 06-27-2022 Glucose [Mass/Vol] 115 mg/dL 70-100 [facility] Comment on above: ADA recommended refe rence rangeRandom Glucose Reference Range is dependent on time and content of last meal. Glucose of more than 200 mg/dL in a nonstressed, ambulatory subject supports the diagnosis of Diabetes Mellitus. Serum or plasma intact parat hyroid hormone measurement (mass/volume)Ordered By: Ada Uriostegui on 06-27-2022 Parathyrin.intact [Mass/Vol] 168.5 pg/mL [facility] Serum or plasma potassium me asurement (moles/volume)Ordered By: Ada Uriostegui on 06-27-2022 Potassium [Moles/Vol] 4.6 mmol/L 3.5-5.1 [facility] Serum or plasma sodium measu rement (moles/volume)Ordered By: Ada Uriostegui on 06-27-2022 Sodium [Moles/Vol] 137 mmol/L 136-146 [facility] Serum or plasma total carbon dioxide measurement (moles/volume)Ordered By: Ada Uriostegui on 06-27-2022 CO2 [Moles/Vol] 23.4 mmol/L 22.0-30.0 [facility] Serum or plasma urea nitroge n measurement (mass/volume)Ordered By: Ada Uriostegui on 06-27-2022 Urea nitrogen [Mass/Vol] 52 mg/dL 05-29 [facility] WBC Auto (Bld) [#/Vol]Ordere d By: Ada Uriostegui on 06-27-2022 WBC (Bld) [#/Vol] 9.4 10*3/uL 4.1-10.5 [facility] Covid-19 PCR (CVDTB)on 06-06 SARS-CoV-2 (COVID-19) RNA SHAY+probe Ql (Unsp spec) Not detected Normal NOT DETECTED [facility] Comment on above: Result Comment: This test is not yet approved or cleared by the [place] FDA. When there are no FDA-approved or cleared tests available, and other criteria are met, FDA can make tests available under an emergency access mechanism called an Emergency Use Authorization (EUA). The EUA for this test is supported by the [employer] of Health and Human Service's (HHS's) declaration that circumstances exist to justify the emergency use of in vitro diagnostics for the detection and/or diagnosis of the virus that causes COVID-19. This EUA will remain in effect (meaning this test can be used) for the duration of the COVID-19 declaration justifying emergency of IVDs, unless it is terminated or revoked by FDA (after which the test may no longer be used). When diagnostic testing is negative, the possibility of a false negative should be considered in the context of a patient's recent exposures and the presence of clinical signs and symptoms consistent with SARS-CoV-2. Performed By: #### [facility] #### [facility] [address] [address] [address] Monroe Winn Blood hemoglobin measurement (mass/volume)Ordered By: Ada Uriostegui on 05-16-2022 Hemoglobin (Bld) [Mass/Vol] 11.2 g/dL 13.0-17.0 [facility] Body fluid albumin measureme nt (mass/volume)Ordered By: Ada Uriostegui on 05-16-2022 Albumin (Body fld) [Mass/Vol] 3.5 g/dL 3.2-5.[address] [facility] [address] biopsyOrdered By: Jonathan christensen on 05-16-2022 Transferrin [Mass/Vol] 300 mg/dL 180-380 [facility] Creatinine and Glomerular fi ltration rate.predicted panel (S/P/Bld)Ordered By: Ada Uriostegui on 05-16-2022 Creatinine [Mass/Vol] 5.05 mg/dL 0.64-1.27 [facility] Erythrocyte distribution wid th Auto (RBC) [Ratio]Ordered By: Aad Uriostegui on 05-16-2022 Erythrocyte distribution width (RBC) [Ratio] 13.7 % 12.0-14.8 [facility] Estimated glomerular filtrat ion rate (GFR) non- AmericanOrdered By: Ada Uriostegui on 05-16-2022 GFR/1.73 sq M.predicted among non-blacks MDRD (S/P/Bld) [Vol rate/Area] 12 mL/Min [facility] Ferritin [Mass/volume] in Se rum or PlasmaOrdered By: Ada Uriostegui on 05-16-2022 Ferritin [Mass/Vol] 447.8 ng/mL 23.9-336.[address] [facility] Hematocrit Auto (Bld) [Volum e fraction]Ordered By: Ada Uriostegui on 05-16-2022 Hematocrit (Bld) [Volume fraction] 33.5 % 38.8-50.0 [facility] Iron [Mass/volume] in Serum or PlasmaOrdered By: Ada Uriostegui on 05-16-2022 Iron [Mass/Vol] 73 ug/dL 40-160 [facility] Iron binding capacity [Mass/ volume] in Serum or PlasmaOrdered By: Ada Whelanr on 05-16-2022 Iron binding capacity [Mass/Vol] 420 ug/dL 255-450 [facility] Iron saturation [Mass Fracti on] in Serum or PlasmaOrdered By: Ada Uriostegui on 05-16-2022 Iron saturation [Mass fraction] 17.0 % 20-50 [facility] Laboratory - Chemistry and C hemistry - challengeOrdered By: Ada Uriostegui on 05-16-2022 Magnesium [Mass/Vol] 2.0 mg/dL 1.6-2.[address] [facility] MCH Auto (RBC) [Entitic mass ]Ordered By: Ada Uriostegui on 05-16-2022 MCH (RBC) [Entitic mass] 29.8 pg 27.5-35.2 [facility] MCHC Auto (RBC) [Mass/Vol]Or dered By: Ada Uriostegui on 05-16-2022 MCHC (RBC) [Mass/Vol] 33.4 g/dL 32.5-35.6 [facility] MCV Auto (RBC) [Entitic vol] Ordered By: Ada Uriostegui on 05-16-2022 MCV (RBC) [Entitic vol] 89.1 fL 83.5-101 [facility] No Panel InformationOrdered By: Ada Uriostegui on 05-16-2022 25-Hydroxy Vitamin D Total 13.9 ng/mL 30-100 [facility] Comment on above: VITAMIN D STATUS 25( [place])VITAMIN D RANGE (ng/mL) Deficient <20 Insufficient 20 to <30 Sufficient 30 to 100 Reference: Sophy MF,Glendy BARTH, Nitin RAMOS, et al. Evaluation,treatment, and prevention of vitamin D deficiency; an Endocrine Society clinical practice guideline. JCEM. 2010; 96(7):191-. VITAMIN D STATUS 25( [place])VITAMIN D RANGE (ng/mL) Deficient <20 Insufficient 20 to <30Sufficient 30 to 100Reference: Sophy ROMAN,Glendy NC, Nitin RAMOS et al. Evaluation,treatment, and prevention of vitamin D deficiency; an Endocrine Society clinical practice guideline. JCEM. 2010; 96(7):1911-. Estimated GFR () 15 mL/Min [facility] Comment on above: GFR estimated refere nce range: According to KDOQI guidelines, <60 ml/min/1.73m2 is sufficient to diagnose a patient with chronic kidney disease. Pharmacy Creatinine Clearance (Chem N/A [facility] Phosphate [Mass/volume] in S james or PlasmaOrdered By: Ada Uriostegui on 05-16-2022 Phosphate [Mass/Vol] 3.9 mg/dL 2.5-4.[address] [facility] Platelet mean volume Auto (B ld) [Entitic vol]Ordered By: Ada Moody on 05-16-2022 Platelet mean volume (Bld) [Entitic vol] 6.9 fL 6.6-10.1 [facility] Platelets Auto (Bld) [#/Vol] Ordered By: Ada Moody on 05-16-2022 Platelets (Bld) [#/Vol] 496 10*3/uL 150-450 [facility] RBC Auto (Bld) [#/Vol]Ordere d By: Ada Moody on 05-16-2022 RBC (Bld) [#/Vol] 3.76 10*6/uL 3.90-5.60 [facility] Serum or plasma anion gap de terminationOrdered By: Ada Moody on 05-16-2022 Anion gap [Moles/Vol] 13.7 mmol/L 6.0-15.0 [facility] Serum or plasma calcium shante urement (mass/volume)Ordered By: Ada Uriostegui on 05-16-2022 Calcium [Mass/Vol] 9.2 mg/dL 8.2-10.2 [facility] Serum or plasma chloride alber surement (moles/volume)Ordered By: Ada Uriostegui on 05-16-2022 Chloride [Moles/Vol] 105 mmol/L 95-[address] [facility] Serum or plasma glucose shante urement (mass/volume)Ordered By: Ada Uriostegui on 05-16-2022 Glucose [Mass/Vol] 177 mg/dL 70-100 [facility] Comment on above: ADA recommended refe rence range Random Glucose Reference Range is dependent on time and content of last meal. Glucose of more than 200 mg/dL in a nonstressed, ambulatory subject supports the diagnosis of Diabetes Mellitus. ADA recommended refe rence rangeRandom Glucose Reference Range is dependent on time and content of last meal. Glucose of more than 200 mg/dL in a nonstressed, ambulatory subject supports the diagnosis of Diabetes Mellitus. Serum or plasma intact parat hyroid hormone measurement (mass/volume)Ordered By: Ada Uriostegui on 05-16-2022 Parathyrin.intact [Mass/Vol] 121.3 pg/mL [facility] Serum or plasma potassium me asurement (moles/volume)Ordered By: Ada Uriostegui on 05-16-2022 Potassium [Moles/Vol] 4.9 mmol/L 3.5-5.1 [facility] Serum or plasma sodium measu rement (moles/volume)Ordered By: Ada Uriostegui on 05-16-2022 Sodium [Moles/Vol] 137 mmol/L 136-146 [facility] Serum or plasma total carbon dioxide measurement (moles/volume)Ordered By: Ada Uriostegui on 05-16-2022 CO2 [Moles/Vol] 23.2 mmol/L 22.0-30.0 [facility] Serum or plasma urea nitroge n measurement (mass/volume)Ordered By: Ada Uriostegui on 05-16-2022 Urea nitrogen [Mass/Vol] 54 mg/dL 05-29 [facility] WBC Auto (Bld) [#/Vol]Ordere d By: Ada Uriostegui on 05-16-2022 WBC (Bld) [#/Vol] 9.8 10*3/uL 4.1-10.5 [facility] SINGLE ANTIGEN CLASS 1on METHOD Class I Single Antigen Normal [facility] Comment on above: Order Comment: Some of the reagents used for clinical histocompatibility testing havebeen approved by the FDA for research only. Through our certificationby CLIA to perform high complexity testing and through our stringentquality control program, these reagents have been rigorously tested andvalidated for clinical use. Typing performed may include components ofSSOP and/or SSP testing in order to obtain a valid HLA typing. Otherrare HLA alleles may be possible, but not probable, due to frequency. Performed By: #### 4 1533, 32309, 72172, 16172, 53397, 94290 #### [facility] [address] [place] [address], [facility] SPECIFICITY Normal [facility] Comment on above: Order Comment: Some of the reagents used for clinical histocompatibility testing havebeen approved by the FDA for research only. Through our certificationby CLIA to perform high complexity testing and through our stringentquality control program, these reagents have been rigorously tested andvalidated for clinical use. Typing performed may include components ofSSOP and/or SSP testing in order to obtain a valid HLA typing. Otherrare HLA alleles may be possible, but not probable, due to frequency. Result Comment: A:[id number] B:76 Performed By: #### 4 1533, 26764, 09217, 68905, 47647, 92781 #### [facility] [address] [place] [address], [facility] SINGLE ANTIGEN CLASS 2on COMMENTS Normal [facility] Comment on above: Order Comment: Some of the reagents used for clinical histocompatibility testing havebeen approved by the FDA for research only. Through our certificationby CLIA to perform high complexity testing and through our stringentquality control program, these reagents have been rigorously tested andvalidated for clinical use. Typing performed may include components ofSSOP and/or SSP testing in order to obtain a valid HLA typing. Otherrare HLA alleles may be possible, but not probable, due to frequency. Result Comment: Clas s II Antigen Microbeads No Specificites Found Performed By: #### 4 1533, 08961, 90399, 60870, 61141, 16622 #### [facility] [address] [place] [address], [facility] Result Comment: Clas s I Antigen Microbeads Potential specificites added to the watch list. METHOD Class II Single Antigen Normal [facility] Comment on above: Order Comment: Some of the reagents used for clinical histocompatibility testing havebeen approved by the FDA for research only. Through our certificationby CLIA to perform high complexity testing and through our stringentquality control program, these reagents have been rigorously tested andvalidated for clinical use. Typing performed may include components ofSSOP and/or SSP testing in order to obtain a valid HLA typing. Otherrare HLA alleles may be possible, but not probable, due to frequency. Performed By: #### 4 1533, 79716, 75554, 31326, 40348, 39855 #### [facility] [address] [place] [address], [facility] SIGNED BY Normal [facility] Comment on above: Order Comment: Some of the reagents used for clinical histocompatibility testing havebeen approved by the FDA for research only. Through our certificationby CLIA to perform high complexity testing and through our stringentquality control program, these reagents have been rigorously tested andvalidated for clinical use. Typing performed may include components ofSSOP and/or SSP testing in order to obtain a valid HLA typing. Otherrare HLA alleles may be possible, but not probable, due to frequency. Result Comment: Delano Nuno, MS,CHT(RAJESH),MT(ASCP) System Controller, Transplant Immunology Performed By: #### 4 1533, 02867, 99128, 20157, 23917, 26074 #### [facility] [address] [place] [address], [facility] BLOOD TYPE AND RHon 04-07-20 22 ABO INTERPRETATION A Normal [facility] Comment on above: Performed By: #### 4 1533, 85065, 67261, 30362, 53463, 76047 #### [facility] [address] RH INTERPRETATION Positive Normal [facility] Comment on above: Performed By: #### 4 1533, 36416, 05362, 75293, 92461, 64093 #### [facility] [address] BNP (B-TYPE NATRIURETIC PEPT BALTAZAR)on 04-07-2022 Natriuretic peptide B (Bld) [Mass/Vol] 32 pg/mL Normal 0-[address] [facility] Comment on above: Result Comment: Give n the appropriate clinical setting a BNP result of >100 pg/mL indicates congestive heart failure. Performed By: #### 4 1533, 33522, 86181, 83849, 53576, 55091 #### [facility] [address] CBC W/DIFFon 04-07-2022 ABS IMM GRANS 0.1 10*3/uL Normal 0.0-0.[address] [facility] Comment on above: Performed By: #### 4 1533, 33753, 47222, 95292, 72666, 07722 #### [facility] [address] ABS NEUTROPHILS 6.3 10*3/uL Normal 1.6-7.[address] [facility] Comment on above: Performed By: #### 4 1533, 12291, 60314, 88329, 41792, 95497 #### [facility] [address] Basophils (Bld) [#/Vol] 0.1 10*3/uL Normal 0.0-0.[address] [facility] Comment on above: Performed By: #### 4 1533, 62003, 91865, 07643, 03616, 90182 #### [facility] [address] Basophils/100 WBC (Bld) 0.5 % Normal 0.0-1.[address] [facility] Comment on above: Performed By: #### 4 1533, 00292, 28773, 54672, 93111, 04323 #### [facility] [address] [place] [address], [facility] Eosinophils (Bld) [#/Vol] 0.3 10*3/uL Normal 0.0-0.[address] [facility] Comment on above: Performed By: #### 4 1533, 96956, 31654, 26225, 07027, 81330 #### [facility] [address] [place] [address], [facility] Eosinophils/100 WBC (Bld) 2.5 % Normal 0.0-6.[address] [facility] Comment on above: Performed By: #### 4 1533, 80784, 82948, 28439, 03658, 48514 #### [facility] [address] Erythrocyte distribution width (RBC) [Ratio] 13.2 % Normal 11.5-15.[address] [facility] Comment on above: Performed By: #### 4 1533, 18867, 38444, 90720, 13631, 51038 #### [facility] [address] [facility] [address], [facility] Hematocrit (Bld) [Volume fraction] 34.6 % Low 39.0-50.[address] [facility] Comment on above: Performed By: #### 4 1533, 47993, 88455, 68750, 31015, 79872 #### [facility] [address] [place] [address], [facility] Hemoglobin (Bld) [Mass/Vol] 11.4 g/dL Low 13.0-17.[address] [facility] Comment on above: Performed By: #### 4 1533, 83669, 52473, 73793, 91679, 15502 #### [facility] [address] [place] [address], [facility] IMMATURE GRANS 1.0 % Normal 0.0-1.[address] [facility] Comment on above: Performed By: #### 4 1533, 09993, 54071, 61467, 95714, 81751 #### [facility] [address] [place] [address], [facility] Lymphocytes (Bld) [#/Vol] 2.5 10*3/uL Normal 1.2-4.[address] [facility] Comment on above: Performed By: #### 4 1533, 61827, 90606, 83886, 53574, 76272 #### [facility] [address] [place] [address], [facility] Lymphocytes/100 WBC (Bld) 25.2 % Normal 20.0-45.[address] [facility] Comment on above: Performed By: #### 4 1533, 52670, 13734, 51980, 88058, 57487 #### [facility] [address] [facility] [address], [facility] MCH (RBC) [Entitic mass] 29.3 pg Normal 27.0-33.[address] [facility] Comment on above: Performed By: #### 4 1533, 30207, 53871, 93121, 99270, 00557 #### [facility] [address] [place] [address], [facility] MCHC (RBC) [Mass/Vol] 32.9 g/dL Normal 32.0-35.[address] [facility] Comment on above: Performed By: #### 4 1533, 58455, 96130, 87858, 99999, 38686 #### [facility] [address] [place] [address], [facility] MCV (RBC) [Entitic vol] 88.9 fL Normal 82.0-98.[address] [facility] Comment on above: Performed By: #### 4 1533, 39060, 50318, 43409, 71107, 47152 #### [facility] [address] [place] [id number], [facility] Monocytes (Bld) [#/Vol] 0.8 10*3/uL Normal 0.1-1.[address] [facility] Comment on above: Performed By: #### 4 1533, 50789, 20128, 13153, 11145, 43336 #### [facility] [address] [place] [address], [place] MONOS 8.3 % Normal 5.0-12.[address] [facility] Comment on above: Performed By: #### 4 1533, 94788, 82483, 28482, 95471, 73532 #### [facility] [address] [place] [address], [place] Neutrophils/100 WBC (Bld) 62.5 % Normal 40.0-72.[address] [facility] Comment on above: Performed By: #### 4 1533, 82682, 47112, 40834, 24899, 32108 #### [facility] [address] [place] [address], [place] Nucleated RBC/100 WBC (Bld) [Ratio] 0 % Normal 0-[address] [facility] Comment on above: Performed By: #### 4 1533, 64102, 58342, 84512, 12550, 07841 #### [facility] [address] [place] [address], [place] PLAT CNT 442 10*3/uL High 150-[address] [facility] Comment on above: Performed By: #### 4 1533, 30296, 98566, 24379, 16962, 57372 #### [facility] [address] [place] [address], [place] RBC (Bld) [#/Vol] 3.89 10*6/uL Low 4.20-5.[address] [facility] Comment on above: Performed By: #### 4 1533, 72286, 26842, 49359, 00771, 77711 #### [facility] [address] [place] [address], [place] WBC (Bld) [#/Vol] 10.00 10*3/uL Normal 4.00-10.[address] [facility] Comment on above: Performed By: #### 4 1533, 82234, 99751, 31938, 57514, 74671 #### [id number] [place] [address] CHEST AND LATERALon 04-07-[address] [facility] Department of Radiology [address] [place] [address] ===== Patient Name: EVANS FORTE : 1970 Sex: M Age: Race: White Pt. Location: Patient Status: D Ordered Date: 04/07/2022 1:10:00 PM Completed Date: 04/07/2022 01:22 PM Requesting Provider: BERTIN RUSSELL Attending Provider: BERTIN RUSSELL Report Copy To: IDANIA RICKETTS Signs & Symptoms: Z01.818 Encounter for other preprocedural examination I10 History: Comments: Exam: CHEST AND LATERAL ===== EXAMINATION: CHEST AND LATERAL 04/07/2022 1:22 PM CLINICAL HISTORY: Z01.818 Encounter for other preprocedural examination I10 TECHNOLOGIST COMMENTS: kidney transplant workup, hx of high blood pressure and diabetes QUESTION FOR THE RADIOLOGIST: TECHNIQUE: AP(PA) and Lateral views were obtained. COMPARISON: Comparison is made with prior chest radiographs of 10/12/2019. FINDINGS: Both lungs and costophrenic angles are clear. There is no evidence of pulmonary infiltrate or acute pulmonary pathology. The cardiac silhouette is within normal limits. The trachea is in midline. The mediastinum is otherwise unremarkable. The bony rib cage is intact. There are degenerative changes in the thoracolumbar spine. The hemidiaphragms are normal in position. IMPRESSION: No evidence of pulmonary infiltrate, acute pulmonary pathology or significant interval change. Electronically signed: Rehan Zaragoza. Transcribed by: [email or web address], User Resident: Electronically Signed by: REHAN ZARAGOZA @ 04/08/2022 07:[address] [facility] CMV IGG BLOODon 04-07-2022 CMV IGG 0.[address] [facility] Comment on above: Order Comment: only males 40 and older Result Comment: NORM AL RANGES: < OR = 0.9O NEGATIVE ; NO DETECTABLE IgG ANTIBODY TO CMV 0.91 - 1.09 EQUIVOCAL; REPEAT TESTING SUGGESTED > OR = 1.10 POSITIVE ; INDICATES PRESENCE OF DETECTABLE IgG ANTIBODY TO CMV Performed By: #### 4 1533, 07984, 89760, 40082, 44296, 27255 #### [facility] [address] [place] [address], [facility] COMP METABOLIC PANELon 04-07 Albumin [Mass/Vol] 4.2 g/dL Normal 3.5-5.[address] [facility] Comment on above: Performed By: #### 0 0121, 73073, 09599 #### [facility] [address] [place] [address], [facility] ALKALINE PHOSPH 72 IU/L Normal 34-[address] [facility] Comment on above: Performed By: #### 0 0121, 83399, 24088 #### [facility] [address] [facility] [address], [facility] ALT [Catalytic activity/Vol] 18 U/L Normal 7-[address] [facility] Comment on above: Performed By: #### 0 0121, 60471, 99862 #### [facility] [address] [place] [address], [facility] AST [Catalytic activity/Vol] 11 U/L Low 13-[address] [facility] Comment on above: Performed By: #### 0 0121, 00507, 52560 #### [facility] [address] [place] [address], [place] Bilirubin [Mass/Vol] 0.3 mg/dL Normal 0.3-1.[address] [facility] Comment on above: Performed By: #### 0 0121, 93686, 32935 #### [facility] [address] [place] [address], [facility] Calcium [Mass/Vol] 10.4 mg/dL High 8.6-10.[address] [facility] Comment on above: Performed By: #### 0 0121, 81309, 72529 #### [facility] [address] [place] [address], [facility] Chloride [Moles/Vol] 106 mmol/L Normal 98-[address] [facility] Comment on above: Performed By: #### 0 0121, 62933, 74298 #### [facility] [address] [place] [address], [facility] CO2 [Moles/Vol] 24 mmol/L Normal 21-[address] [facility] Comment on above: Performed By: #### 0 0121, 51515, 30883 #### [facility] [address] [place] [address], [place] Creatinine [Mass/Vol] 5.07 mg/dL High 0.70-1.[address] [facility] Comment on above: Performed By: #### 0 0121, 21961, 41341 #### [facility] [address] [place] [address], [facility] EGFR 13 ml/min/1.73sq m Abnormal >[address] [facility] Comment on above: Result Comment: [facility]'s estimated glomerular filtration rate (eGFR) will no longer include consideration of race in its calculation. The National [employer]'s eGFR Task Force developed new recommendations for [...] one group of individuals. Performed By: #### 0 0121, 12434, 48303 #### [facility] [address] [place] [address], [place] Glucose [Mass/Vol] 106 mg/dL High 70-[address] [facility] Comment on above: Performed By: #### 0 0121, 06941, 58858 #### [facility] [address] [place] [address], [place] Potassium [Moles/Vol] 4.6 mmol/L Normal 3.5-5.[address] [facility] Comment on above: Performed By: #### 0 0121, 55459, 52346 #### [facility] [address] [place] [address], [place] Protein [Mass/Vol] 7.2 g/dL Normal 6.0-8.[address] [facility] Comment on above: Performed By: #### 0 0121, 90069, 17999 #### [facility] [address] [place] [address], [place] Sodium [Moles/Vol] 138 mmol/L Normal 136-[address] [facility] Comment on above: Performed By: #### 0 0121, 02839, 73804 #### [facility] [facility] [address] [place] [address], [place] Urea nitrogen [Mass/Vol] 59 mg/dL High 7-[address] [facility] Comment on above: Performed By: #### 0 0121, 23298, 02478 #### [facility] [address] [place] [address], [place] CREATININE URINE RANDOMon Creatinine (U) [Mass/Vol] 79.0 mg/dL Normal [facility] Comment on above: Result Comment: Ther e are no established reference values for random urine specimens Performed By: #### 4 1533, 28103, 00906, 04089, 97755, 69562 #### [facility] [address] [facility] [place] [address], [facility] CT RENAL RECIPIENT ABDOMEN A ND PEVLIS WO CONTRASTon 04-07-2022 CT RENAL RECIPIENT ABDOMEN AND PEVLIS WO CONTRAST [facility] Department of Radiology [address] [place] [address] ===== Patient Name: EVANS FORTE : 1970 Sex: M Age: Race: White Pt. Location: Patient Status: D Ordered Date: 04/07/2022 1:10:00 PM Completed Date: 04/07/2022 01:22 PM Requesting Provider: BERTIN RUSSELL Attending Provider: BERTIN RUSSELL Report Copy To: IDANIA RICKETTS Signs & Symptoms: Z01.818 Encounter for other preprocedural examination I10 History: [place] Comments: Pre-kidney transplant work-up. Please evaluate vessels for kidney transplant. , Height (ft.): 6 ft 0 in , Weight (lbs): 304 Exam: CT RENAL RECIPIENT ABDOMEN AND PEVLIS WO CONTRAST ===== Nonenhanced CT of the abdomen and pelvis INDICATION: Prekidney transplant workup, please evaluate vessels for kidney transplant. PROCEDURE: Automatic radiation exposure lowering techniques were utilized. All CT scans in this facility use dose modulation, iterative reconstruction, and/or weight based dosing when appropriate to reduce radiation dose to as low as reasonably achievable. An nonenhanced CT of the abdomen and pelvis and sagittal and coronal reformats obtained. FINDINGS: Comparison is October 12, 2019.4 there is a small low-attenuation lesion in the liver on axial slice #35, not significantly changed from 2020 suggesting a benign etiology. Nodule in the left adrenal gland measures 2.5 cm measuring low-attenuation consistent with adenoma. Given the lack of intravenous contrast, no focal abnormality seen in the right adrenal glands, gallbladder, or pancreas. No kidney stones or hydronephrosis. There is mild haziness surrounding the kidneys, not significantly changed, etiology undetermined. Evaluation of the renal vasculature is compromised due to the lack of intravenous contrast. There is a single renal arteries bilaterally, and early opacification of the left renal artery. No significant calcification seen in the abdominal aorta, renal arteries, or iliac vessels. No aneurysm seen. IMPRESSION: 1. No acute abnormality seen in the abdomen and pelvis. 2. Stable low-attenuation left adrenal nodule consistent with an adenoma. 3. No significant calcifications of the abdominal aorta or iliac arteries. Electronically signed: SAYDA GRACE. Transcribed by: [email or web address], User Resident: Electronically Signed by: SAYDA GRACE @ 04/09/2022 10:[address] [facility] Comment on above: Order Comment: Pre-k idney transplant work-up. Please evaluate vessels for kidney transplant. , Height (ft.): 6 ft 0 in , Weight (lbs): 304 DIRECT BILIon 04-07-2022 Bilirubin.direct [Mass/Vol] 0.0 mg/dL Normal 0.0-0.[address] [facility] Comment on above: Performed By: #### 0 0121, 61409, 60443 #### [facility] [address] [place] [address], [facility] ELLY LORENZO VIRUS ABon 08-0 EB VCA IGG 3.[address] [facility] Comment on above: Order Comment: only males 40 and older Result Comment: NORM AL RANGES: < OR = 0.9O NEGATIVE ; NO DETECTABLE IgG ANTIBODY TO EBV-VCA 0.91 - 1.09 EQUIVOCAL; REPEAT TESTING SUGGESTED > OR = 1.10 POSITIVE ; INDICATES PRESENCE OF DETECTABLE IgG ANTIBODY TO EBV Performed By: #### 4 1533, 43543, 46384, 18614, 34854, 95568 #### [facility] [address] [place] [address], [facility] EB VCA IGM 0.[address] [facility] Comment on above: Order Comment: only males 40 and older Result Comment: NORM AL RANGES: < OR = 0.9O NEGATIVE ; NO SIGNIFICANT LEVEL OF DETECTABLE EBV-VCA IgM AB 0.91 - 1.09 EQUIVOCAL; REPEAT TESTING SUGGESTED > OR = 1.10 POSITIVE ; SIGNIFICANT LEVEL OF DETECTABLE EBV-VCA IgM AB Performed By: #### 4 1533, 67841, 51441, 03308, 43966, 33888 #### [facility] [address] [place] [address], [facility] HEMOGLOBIN A1Con 04-07-2022 Glucose [Moles/Vol] 174 mmol/L Normal [facility] Comment on above: Performed By: #### 4 1533, 01535, 19561, 65989, 54795, 97828 #### [facility] [address] [place] [address], [facility] HbA1c (Bld) [Mass fraction] 7.7 % High 4.0-6.[address] [facility] Comment on above: Performed By: #### 4 1533, 66659, 40872, 51536, 28557, 57449 #### [facility] [address] [place] [address], [facility] HEPATITIS A ANTIBODY IGMon 0 04-07-2022 HEP A AB IGM Non-Reactive Normal NONREACTIVE [facility] Comment on above: Performed By: #### 4 1533, 85351, 32770, 35462, 12457, 60579 #### [facility] [address] HEPATITIS B CORE ANTIBODYon 04-07-2022 HEP B CORE AB Non-Reactive Normal NONREACTIVE [facility] Comment on above: Performed By: #### 4 1533, 08923, 83135, 81527, 16783, 36415 #### [facility] [address] HEPATITIS B SURFACE ANTIBODY QUANTon 04-07-2022 HEP B SURF AB 0.95 mIU/ml Normal [facility] Comment on above: Result Comment: INTE RPRETATION: NONREACTIVE<8.00 mIU/mL INDETERMINATE8.00 - 12.00 mIU/mL REACTIVE>12 mIU/mL Performed By: #### 4 1533, 63855, 66176, 22745, 32072, 73765 #### [facility] [address] HEPATITIS B SURFACE ANTIGEN QUALon 04-07-2022 HEP B SURF AG QUAL Non-Reactive Normal NONREACTIVE [facility] Comment on above: Performed By: #### 4 1533, 58931, 13543, 78062, 39168, 82942 #### [facility] [address] [place] [address], [facility] HEPATITIS C ANTIBODYon 04-07 ANTI-HCV Non-Reactive Normal NONREACTIVE [facility] Comment on above: Performed By: #### 4 1533, 33767, 39648, 77821, 08576, 87428 #### [facility] [address] [facility]. [address] HIV1 AND 2 COMBO 4Gon 2021 HIV COMBO Negative Normal NEGATIVE [facility] Comment on above: Performed By: #### 3 0625 #### [facility] [address] [facility]. [address] LIPID PROFILEon 04-07-2022 Cholesterol [Mass/Vol] 174 mg/dL Normal 120-[address] [facility] Comment on above: Result Comment: CHOL ESTEROL REFERENCE RANGE: 20 YEARS AND OLDER CARDIOVASCULAR RISK Less than 200 mg/dl Low Risk 200 to 239 mg/dl Borderline Risk 240 mg/dl and greater High Risk Performed By: #### 0 0121, 03580, 25781 #### [facility] [address] [place] [address], [facility] Cholesterol in HDL [Mass/Vol] 37 mg/dL Normal 23-[address] [facility] Comment on above: Result Comment: Slig ht variation in normal range could be due to gender and/or age. HDL CHOLESTEROL REFERENCE RANGE: 20 years and older Cardiovascular Risk > or =60 mg/dL Desirable 40 TO 59 mg/dL Low Risk <40 mg/dL High Risk Performed By: #### 0 0121, 55021, 64617 #### [facility] [address] [facility] [address], [facility] Cholesterol in LDL [Mass/Vol] 84 mg/dL Normal 0-[address] [facility] Comment on above: Result Comment: LDL IS A CALCULATION LDL IS ONLY VALID IF THE TRIG IS LESS THAN 400. Performed By: #### 0 0121, 97833, 36062 #### [facility] [address] [place] [address], [facility] Cholesterol.total/Chol esterol in HDL [Mass ratio] 4.7 {ratio} High .0-4.[address] [facility] Comment on above: Performed By: #### 0 0121, 39870, 45454 #### [facility] [address] [place] [address], [facility] NON-HDL CHOLESTEROL 137 mg/dL Normal [facility] Comment on above: Performed By: #### 0 0121, 31893, 67628 #### [facility] [address] [place] [address], [place] Triglyceride [Mass/Vol] 265 mg/dL High 40-[address] [facility] Comment on above: Result Comment: TRIG LYCERIDE REFERENCE RANGE: 20 YEARS AND OLDER CARDIOVASCULAR RISK LESS THAN 150 mg/dl LOW RISK 150 TO 199 mg/dl BORDERLINE RISK 200 mg/dl AND GREATER HIGH RISK Performed By: #### 0 0121, 78220, 93072 #### [facility] [address] [facility]. [address] VLDL CHOL 53 mg/dL High 0-[address] [facility] Comment on above: Performed By: #### 0 0121, 68111, 60428 #### [facility] [address] [facility]. [address] MUMPS IGG BLDon 04-07-2022 MUMPS IGG 1.[address] [facility] Comment on above: Result Comment: NORM AL RANGES: < OR = 0.9O NEGATIVE ; NO DETECTABLE IgG ANTIBODY TO MUMPS 0.91 - 1.09 EQUIVOCAL; REPEAT TESTING SUGGESTED > OR = 1.10 POSITIVE ; INDICATES PRESENCE OF DETECTABLE IgG ANTIBODY TO MUMPS Performed By: #### 4 1533, 60036, 98578, 25864, 58898, 94456 #### [facility] [address] RUBELLAon 04-07-[address] [facility] Comment on above: Result Comment: 1.09 RAN IN TRIPLICATE NORMAL RANGES: < OR = 0.9O NEGATIVE ; NO DETECTABLE IgG ANTIBODY TO RUBELLA 0.91 - 1.09 EQUIVOCAL; REPEAT TESTING SUGGESTED > OR = 1.10 POSITIVE ; INDICATES PRESENCE OF DETECTABLE IgG ANTIBODY TO RUBELLA VIRUS Performed By: #### 4 1533, 31459, 37768, 72369, 52511, 62962 #### [facility] [address] [facility]. [address] RUBEOLA MEASLES IGGon 2021 RUBEO IGG 0.[address] [facility] Comment on above: Result Comment: NORM AL RANGES: < OR = 0.9O NEGATIVE ; NO DETECTABLE IgG ANTIBODY TO RUBEOLA 0.91 - 1.09 EQUIVOCAL; REPEAT TESTING SUGGESTED > OR = 1.10 POSITIVE ; INDICATES PRESENCE OF DETECTABLE IgG ANTIBODY TO RUBEOLA Performed By: #### 4 1533, 66914, 12590, 14738, 34036, 80643 #### [facility] [address] SINGLE ANTIGEN CLASS 1on METHOD Class I Single Antigen Normal [facility] Comment on above: Order Comment: Some of the reagents used for clinical histocompatibility testing havebeen approved by the FDA for research only. Through our certificationby CLIA to perform high complexity testing and through our stringentquality control program, these reagents have been rigorously tested andvalidated for clinical use. Typing performed may include components ofSSOP and/or SSP testing in order to obtain a valid HLA typing. Otherrare HLA alleles may be possible, but not probable, due to frequency. Performed By: #### 4 1533, 12942, 84795, 60596, 62438, 04065 #### [facility] [address] [facility]. [address] SINGLE ANTIGEN CLASS 2on COMMENTS Normal [facility] Comment on above: Order Comment: Some of the reagents used for clinical histocompatibility testing havebeen approved by the FDA for research only. Through our certificationby CLIA to perform high complexity testing and through our stringentquality control program, these reagents have been rigorously tested andvalidated for clinical use. Typing performed may include components ofSSOP and/or SSP testing in order to obtain a valid HLA typing. Otherrare HLA alleles may be possible, but not probable, due to frequency. Result Comment: Clas s II Antigen Microbeads Potential specificites added to the watch list. Performed By: #### 4 1533, 93230, 10681, 35487, 03311, 80932 #### [facility] [address] [facility]. [address] Result Comment: Clas s I Antigen Microbeads Potential specificites added to the watch list. CPRA [address] [facility] Comment on above: Order Comment: Some of the reagents used for clinical histocompatibility testing havebeen approved by the FDA for research only. Through our certificationby CLIA to perform high complexity testing and through our stringentquality control program, these reagents have been rigorously tested andvalidated for clinical use. Typing performed may include components ofSSOP and/or SSP testing in order to obtain a valid HLA typing. Otherrare HLA alleles may be possible, but not probable, due to frequency. Performed By: #### 4 1533, 55007, 90240, 96914, 29641, 30168 #### [facility] [address] METHOD Class II Single Antigen Normal T [facility] Comment on above: Order Comment: Some of the reagents used for clinical histocompatibility testing havebeen approved by the FDA for research only. Through our certificationby CLIA to perform high complexity testing and through our stringentquality control program, these reagents have been rigorously tested andvalidated for clinical use. Typing performed may include components ofSSOP and/or SSP testing in order to obtain a valid HLA typing. Otherrare HLA alleles may be possible, but not probable, due to frequency. Performed By: #### 4 1533, 91070, 76472, 13395, 78144, 77624 #### [facility] [address] [facility]. [address] SIGNED BY Normal [facility] Comment on above: Order Comment: Some of the reagents used for clinical histocompatibility testing havebeen approved by the FDA for research only. Through our certificationby CLIA to perform high complexity testing and through our stringentquality control program, these reagents have been rigorously tested andvalidated for clinical use. Typing performed may include components ofSSOP and/or SSP testing in order to obtain a valid HLA typing. Otherrare HLA alleles may be possible, but not probable, due to frequency. Result Comment: Delano Nuno, MS,CHT(RAJESH),MT(ASCP) System Controller, Transplant Immunology Performed By: #### 4 1533, 67439, 97256, 84885, 69714, 80305 #### [facility] [address] [place] [address], [facility] T PROT UR Ryne 04-07-2022 U TOTAL PROTEIN 336.4 mg/dL Normal [facility] Comment on above: Result Comment: Ther e are no established reference values for random urine specimens Performed By: #### 4 1533, 72855, 45719, 91267, 73734, 17515 #### [facility] [address] [facility] [address], [facility] TB QUANTIFERON PLUSon 2021 MITOGEN MINUS NIL >10.[address] [facility] Comment on above: Performed By: #### 4 1533, 38384, 18316, 19342, 77020, 72112 #### [facility] [address] [facility] [address], [facility] NIL 0.02 IU/mL Normal [facility] Comment on above: Performed By: #### 4 1533, 15971, 94571, 23015, 57706, 10130 #### [facility] [address] [facility] [place] [address], [facility] TB QUANTIFERON Negative Normal NEGATIVE [facility] Comment on above: Result Comment: Shawn tiferon TB Gold Interpretation (IU/mL): NEGATIVE: M. tuberculosis infection not likely. Nil: <=8.0 TB1 Antigen minus Nil (YK3CC-FSI): <0.35 OR >=0.35; and <25% of Nil value. TB2 Antigen minus Nil (FO4BU-TAL): <0.35 OR >=0.35; and <25% of Nil value. Mitogen minus Nil (MATT-NIL): >=0.50 NOTE: Diagnosing or excluding tuberculosis disease, and assessing the probability of LTBI, requires a combination of epidemiological, historical, medical, and diagnostic findings that should be taken into account when interpreting QuantiFERON (TM)-TB Gold results. See general guidance on the diagnosis and treatment of TB disease and LTBI (https://www.cdc.gov/tb/publications/guidlines/default.htm Performed By: #### 4 1533, 92884, 19139, 11279, 00759, 97127 #### [facility] [address] [facility] [place] [address], [facility] TB1 AG 0.05 IU/mL Normal [facility] Comment on above: Performed By: #### 4 1533, 12497, 02446, 49997, 02933, 93701 #### [facility] [address] [place] [address], [facility] TB1 AG MINUS NIL 0.03 IU/mL Normal [facility] Comment on above: Performed By: #### 4 1533, 67432, 65036, 07243, 03360, 50292 #### [facility] [address] [place] [address], [place] TB2 AG 0.04 IU/mL Normal [facility] Comment on above: Performed By: #### 4 1533, 82573, 69377, 28592, 60112, 99925 #### [facility] [address] [place] [address], [place] TB2 AG MINUS NIL 0.02 IU/mL Normal [facility] Comment on above: Performed By: #### 4 1533, 21444, 37238, 80787, 51241, 59539 #### [facility] [address] [place] [address], [facility] TESTOSTERONE, FREE+SHBG+TOTA L ILon 04-07-[address] [facility] Comment on above: Result Comment: Test Performed by [facility] [address] [place] [address] - Released 04/08/2022 09:48 SEX HORM BIND GLOB 23 nmol/L Normal 11-[address] [facility] Testosterone [Mass/Vol] 178 ng/dL Low 220-[address] [facility] TESTOSTERONE, FREE 40.8 pg/mL Low 47-[address] [facility] Comment on above: Result Comment: The concentration of free testosterone is derived from a mathematical expression based on the constant for the binding of testosterone to albumin and/or sex hormone binding globulin. UA,MICROSCOPIC REQUIREDon Appearance (U) CLEAR Normal CLEAR [facility] Comment on above: Performed By: #### 4 1533, 43736, 13117, 24204, 46332, 01023 #### [facility] [address] [place] [address], [facility] Bilirubin Ql (U) Negative Normal NEGATIVE [facility] Comment on above: Performed By: #### 4 1533, 07030, 93008, 44792, 14834, 24331 #### [facility] [address] [facility] [address], [facility] Color (U) YELLOW Normal YELLOW [facility] Comment on above: Performed By: #### 4 1533, 25037, 22757, 71727, 57784, 50299 #### [facility] [address] [place] [address], [facility] EPIS OCC Normal FEW,OCC,NONE SEEN [facility] Comment on above: Performed By: #### 4 1533, 95573, 90503, 02123, 79165, 23160 #### [facility] [address] [place] [address], [facility] Glucose Ql (U) 250 mg/dL Abnormal NEGATIVE [facility] Comment on above: Performed By: #### 4 1533, 66600, 69913, 90262, 29205, 82464 #### [facility] [address] [facility] [address], [facility] Hemoglobin Ql (U) TRACE Abnormal NEGATIVE [facility] Comment on above: Performed By: #### 4 1533, 28855, 04006, 07485, 20770, 71243 #### [facility] [address] [place] [address], [facility] KETONE Negative Normal NEGATIVE [facility] Comment on above: Performed By: #### 4 1533, 70640, 90925, 74446, 15683, 36892 #### [facility] [address] [facility] [place] [address], [facility] LEUK AGNES Negative Normal NEGATIVE [facility] Comment on above: Performed By: #### 4 1533, 90347, 45682, 38167, 65623, 47402 #### [facility] [address] [place] [address], [facility] Nitrite Ql (U) Negative Normal NEGATIVE [facility] Comment on above: Performed By: #### 4 1533, 12857, 37492, 41746, 86983, 43404 #### [facility] [address] [facility]. [address] pH (U) 5.5 [pH] Normal 5.0-8.[address] [facility] Comment on above: Performed By: #### 4 1533, 40835, 09814, 10591, 89333, 90153 #### [facility] [address] Protein Ql (U) [address] [facility] Comment on above: Performed By: #### 4 1533, 88956, 23959, 54537, 41089, 07555 #### [facility] [address] [facility]. [address] RBC 0-2 Abnormal N[address] SEEN [facility] Comment on above: Performed By: #### 4 1533, 64732, 17751, 25156, 80783, 35084 #### [facility] [address] [facility]. [address] SPEC GRAV 1.020 Normal 1.015-1.[address] [facility] Comment on above: Performed By: #### 4 1533, 29766, 89034, 60946, 29688, 00272 #### [facility] [address] [facility] [place] [address], [facility] WBC UA 0-2 Abnormal N[address] SEEN [facility] Comment on above: Performed By: #### 4 1533, 99056, 41310, 49387, 20093, 08261 #### [facility] [address] VARICELLA ZOSTER IGGon 04-07 VARICELLA IGG 1.[address] [facility] Comment on above: Result Comment: NORM AL RANGES: < OR = 0.9O NEGATIVE ; NO DETECTABLE IgG ANTIBODY TO VARICELLA-ZOSTER VIRUS 0.91 - 1.09 EQUIVOCAL; REPEAT TESTING SUGGESTED > OR = 1.10 POSITIVE ; INDICATES PRESENCE OF DETECTABLE IgG ANTIBODY TO VARICELLA-ZOSTER VIRUS Performed By: #### 4 1533, 10922, 30468, 46537, 90993, 59914 #### [facility] [address] [place] [address], [facility] Albumin [Mass/volume] in Ser um or PlasmaOrdered By: Ada Uriostegui on 02-20-2022 Albumin [Mass/Vol] 3.4 g/dL 3.2-5.5 [facility] Automated erythrocytes count in urine sediment (number/area)Ordered By: Ada Uriostegui on 02-20-2022 RBC Auto (Urine sed) [#/Area] 1-2 [HPF] 0-4 [facility] Automated leukocytes count i n urine sediment (number/area)Ordered By: Ada Uriostegui on 02-20-2022 WBC Auto (Urine sed) [#/Area] 0-1 [HPF] 0-4 [facility] Bilirubin Test strip Ql (U)O rdered By: Ada Uriostegui on 02-20-2022 Bilirubin Ql (U) Negative Negative [facility] Blood hemoglobin measurement (mass/volume)Ordered By: Ada Uriostegui on 02-20-2022 Hemoglobin (Bld) [Mass/Vol] 11.1 g/dL 13.0-17.[address] [facility] [address] biopsyOrdered By: Jonathan christensen on 02-20-2022 Transferrin [Mass/Vol] 284 mg/dL 180-380 [facility] Color Auto (U)Ordered By: Ab akhil Uriostegui on 02-20-2022 Color (U) Yellow Yellow [facility] Creatinine [Mass/volume] in UrineOrdered By: Ada Uriostegui on 02-20-2022 Creatinine (U) [Mass/Vol] 73.3 mg/dL [facility] Comment on above: No reference range e stablished Creatinine and Glomerular fi ltration rate.predicted panel (S/P/Bld)Ordered By: Ada Uriostegui on 02-20-2022 Creatinine [Mass/Vol] 4.65 mg/dL 0.64-1.27 [facility] Erythrocyte distribution wid th Auto (RBC) [Ratio]Ordered By: Ada Uriostegui on 02-20-2022 Erythrocyte distribution width (RBC) [Ratio] 13.9 % 12.0-14.8 [facility] Estimated glomerular filtrat ion rate (GFR) non- AmericanOrdered By: Ada Uriostegui on 02-20-2022 GFR/1.73 sq M.predicted among non-blacks MDRD (S/P/Bld) [Vol rate/Area] 13 mL/Min [facility] Ferritin [Mass/volume] in Se rum or PlasmaOrdered By: Ada Uriostegui on 02-20-2022 Ferritin [Mass/Vol] 471.8 ng/mL 23.9-336.[address] [facility] Hematocrit Auto (Bld) [Volum e fraction]Ordered By: Ada Uriostegui on 02-20-2022 Hematocrit (Bld) [Volume fraction] 32.9 % 38.8-50.0 [facility] Iron [Mass/volume] in Serum or PlasmaOrdered By: Ada Uriostegui on 02-20-2022 Iron [Mass/Vol] 74 ug/dL 40-160 [facility] Iron binding capacity [Mass/ volume] in Serum or PlasmaOrdered By: Ada Uriostegui on 02-20-2022 Iron binding capacity [Mass/Vol] 398 ug/dL 255-450 [facility] Iron saturation [Mass Fracti on] in Serum or PlasmaOrdered By: Ada Uriostegui on 02-20-2022 Iron saturation [Mass fraction] 18.0 % 20-50 [facility] Ketones Auto test strip (U) [Mass/Vol]Ordered By: Ada Uriostegui on 02-20-2022 Ketones (U) [Mass/Vol] Negative Negative [facility] Laboratory - Chemistry and C hemistry - challengeOrdered By: Ada Uriostegui on 02-20-2022 Magnesium [Mass/Vol] 1.9 mg/dL 1.6-2.[address] [facility] Laboratory - UrinalysisOrder ed By: Ada Uriostegui on 02-20-2022 Hyaline casts LM Ql (Urine sed) 0-8 [LPF] 0-8 [facility] MCH Auto (RBC) [Entitic mass ]Ordered By: Ada Uriostegui on 02-20-2022 MCH (RBC) [Entitic mass] 30.5 pg 27.5-35.2 [facility] MCHC Auto (RBC) [Mass/Vol]Or dered By: Ada Uriostegui on 02-20-2022 MCHC (RBC) [Mass/Vol] 33.8 g/dL 32.5-35.6 [facility] MCV Auto (RBC) [Entitic vol] Ordered By: Ada Uriostegui on 02-20-2022 MCV (RBC) [Entitic vol] 90.2 fL 83.5-101 [facility] Nitrite Test strip Ql (U)Ord ered By: Ada Uriostegui on 02-20-2022 Nitrite Ql (U) Negative Negative [facility] No Panel InformationOrdered By: Ada Uriostegui on 02-20-2022 25-Hydroxy Vitamin D Total 13.8 ng/mL 30-100 [facility] Comment on above: VITAMIN D STATUS 25( [place])VITAMIN D RANGE (ng/mL) Deficient <20 Insufficient 20 to <30 Sufficient 30 to 100 Reference: Sophy MF,Glendy NC, Nitin RAMOS, et al. Evaluation,treatment, and prevention of vitamin D deficiency; an Endocrine Society clinical practice guideline. JCEM. 2010; 96(7):1911-30. Estimated GFR () 16 mL/Min [facility] Comment on above: GFR estimated refere nce range: According to KDOQI guidelines, <60 ml/min/1.73m2 is sufficient to diagnose a patient with chronic kidney disease. Pharmacy Creatinine Clearance (Chem N/A [facility] Phosphate [Mass/volume] in S james or PlasmaOrdered By: Ada Uriostegui on 02-20-2022 Phosphate [Mass/Vol] 4.2 mg/dL 2.5-4.[address] [facility] Platelet mean volume Auto (B ld) [Entitic vol]Ordered By: Ada Uriostegui on 02-20-2022 Platelet mean volume (Bld) [Entitic vol] 7.4 fL 6.6-10.1 [facility] Platelets Auto (Bld) [#/Vol] Ordered By: Ada Uriostegui on 02-20-2022 Platelets (Bld) [#/Vol] 497 10*3/uL 150-450 [facility] Protein Auto test strip (U) [Mass/Vol]Ordered By: Ada Uriostegui on 02-20-2022 Protein (U) [Mass/Vol] 300 mg/dL Negative [facility] Protein [Mass/volume] in Uri neOrdered By: Ada Uriostegui on 02-20-2022 Protein (U) [Mass/Vol] 303 mg/dL 0-9 [facility] RBC Auto (Bld) [#/Vol]Ordere d By: Ada Uriostegui on 02-20-2022 RBC (Bld) [#/Vol] 3.64 10*6/uL 3.90-5.60 [facility] Serum or plasma calcium shante urement (mass/volume)Ordered By: Ada Uriostegui on 02-20-2022 Calcium [Mass/Vol] 8.8 mg/dL 8.2-10.2 [facility] Serum or plasma chloride alber surement (moles/volume)Ordered By: Ada Uriostegui on 02-20-2022 Chloride [Moles/Vol] 106 mmol/L 95-[address] [facility] Serum or plasma glucose shante urement (mass/volume)Ordered By: Ada Uriostegui on 02-20-2022 Glucose [Mass/Vol] 65 mg/dL 70-100 [facility] Comment on above: ADA recommended refe rence range Random Glucose Reference Range is dependent on time and content of last meal. Glucose of more than 200 mg/dL in a nonstressed, ambulatory subject supports the diagnosis of Diabetes Mellitus. Serum or plasma intact parat hyroid hormone measurement (mass/volume)Ordered By: Ada Uriostegui on 02-20-2022 Parathyrin.intact [Mass/Vol] 251.7 pg/mL 12-88 [facility] Serum or plasma potassium me asurement (moles/volume)Ordered By: Ada Uriostegui on 02-20-2022 Potassium [Moles/Vol] 4.7 mmol/L 3.5-5.1 [facility] Serum or plasma sodium measu rement (moles/volume)Ordered By: Ada Uriostegui on 02-20-2022 Sodium [Moles/Vol] 141 mmol/L 136-146 [facility] Serum or plasma total carbon dioxide measurement (moles/volume)Ordered By: Ada Uriostegui on 02-20-2022 CO2 [Moles/Vol] 24.3 mmol/L 22.0-30.0 [facility] Serum or plasma urea nitroge n measurement (mass/volume)Ordered By: Ada Uriostegui on 02-20-2022 Urea nitrogen [Mass/Vol] 51 mg/dL 9-23 [facility] Serum or plasma uric acid me asurement (mass/volume)Ordered By: Ada Uriostegui on 02-20-2022 Urate [Mass/Vol] 6.6 mg/dL 2.6-7.2 [facility] Specific gravity Auto test s trip (U) [Rel density]Ordered By: Ada Uriostegui on 02-20-2022 Specific gravity (U) [Rel density] 1.013 1.001-1.030 [facility] Squamous epithelial cells de tection in urine sediment by light microscopyOrdered By: Ada Uriostegui on 02-20-2022 Epithelial cells.squamous LM Ql (Urine sed) 0-1 [HPF] 0-2 [facility] Urine bacteria detection by automated methodOrdered By: Ada Uriostegui on 02-20-2022 Bacteria Auto Ql (U) None seen None Seen [facility] Urine clarity by refractomet ry automatedOrdered By: Ada Uriostegui on 02-20-2022 Clarity Refractometry automated (U) Clear Clear [facility] Urine glucose measurement by automated test strip (mass/volume)Ordered By: Ada Uriostegui on 02-20-2022 Glucose Auto test strip (U) [Mass/Vol] Normal mg/dL Normal [facility] Urine hemoglobin detection b y automated test stripOrdered By: Ada Uriostegui on 02-20-2022 Hemoglobin Auto test strip Ql (U) Trace Negative [facility] Urine leukocyte esterase det ection by automated test stripOrdered By: Ada Uriostegui on 02-20-2022 Leukocyte esterase Auto test strip Ql (U) Negative Negative [facility] Urine protein/creatinine rat ioOrdered By: Ada Uriostegui on 02-20-2022 Protein/Creatinine (U) [Ratio] 4134 mg/g{Cre} 0-200 [facility] Urobilinogen Auto test strip (U) [Mass/Vol]Ordered By: Ada Topetedir on 02-20-2022 Urobilinogen (U) [Mass/Vol] Normal mg/dL Normal [facility] WBC Auto (Bld) [#/Vol]Ordere d By: Ada Topetedir on 02-20-2022 WBC (Bld) [#/Vol] 9.6 10*3/uL 4.1-10.5 [facility] pH Auto test strip (U)Ordere d By: Ada Topetedir on 02-20-2022 pH (U) 5.5 [pH] 5.0-9.0 [facility] C-Reactive Proteinon 022 CRP IV 3.4 mg/dl Normal <5.0 [facility] Certified Drug Counselor Comment on above: Performed By: #### C BCAD, CMP, ESR, CRP #### [facility] [address], [place] [id number] Complete Blood Count with Au to Diffon 10-23-2021 Basophils (Bld) [#/Vol] 0.08 10*3/uL Normal 0.00-0.20 [facility] Certified Drug Counselor Comment on above: Performed By: #### C BCAD, CMP, ESR, CRP #### [facility] [address], [place] [id number] Basophils/100 WBC (Bld) 0.4 % Normal [facility] Certified Drug Counselor Comment on above: Performed By: #### C BCAD, CMP, ESR, CRP #### [facility] [address], [place] [id number] Eosinophils (Bld) [#/Vol] 0.34 10*3/uL Normal 0.02-0.50 [facility] Certified Drug Counselor Comment on above: Performed By: #### C BCAD, CMP, ESR, CRP #### [facility] [address], [place] [id number] Eosinophils/100 WBC (Bld) 1.8 % Normal [facility] Specialist Comment on above: Performed By: #### C BCAD, CMP, ESR, CRP #### [facility] [address], [place] [id number] Erythrocyte distribution width (RBC) [Ratio] 12.9 % Normal 11.0-15.0 [facility] Specialist Comment on above: Performed By: #### C BCAD, CMP, ESR, CRP #### [facility] [address], [place] [id number] Hematocrit (Bld) [Volume fraction] 38.4 % Low 38.5-50.0 [facility] Specialist Comment on above: Performed By: #### C BCAD, CMP, ESR, CRP #### [facility] [address], [place] [id number] Hemoglobin (Bld) [Mass/Vol] 12.2 g/dL Low 13.0-17.1 [facility] Specialist Comment on above: Performed By: #### C BCAD, CMP, ESR, CRP #### [facility] [address], [place] [id number] Lymphocytes (Bld) [#/Vol] 1.9 10*3/uL Normal 0.9-3.9 [facility] Specialist Comment on above: Performed By: #### C BCAD, CMP, ESR, CRP #### [facility] [address], [place] [id number] Lymphocytes/100 WBC (Bld) 10.1 % Normal [facility] Specialist Comment on above: Performed By: #### C BCAD, CMP, ESR, CRP #### [facility] [address], [place] [id number] MCH (RBC) [Entitic mass] 28.8 pg Normal 27.0-33.0 [facility] Specialist Comment on above: Performed By: #### C BCAD, CMP, ESR, CRP #### [facility] [address], [place] [id number] MCHC (RBC) [Mass/Vol] 31.8 g/dL Low 32.0-36.[address] [facility] Comment on above: Performed By: #### C BCAD, CMP, ESR, CRP #### [facility] [address] [place] [id number] MCV (RBC) [Entitic vol] 91 fL Normal 80-100 [facility] Specialist Comment on above: Performed By: #### C BCAD, CMP, ESR, CRP #### [facility] [address], [place] [id number] Monocytes (Bld) [#/Vol] 1.2 10*3/uL High 0.2-0.9 [facility] Specialist Comment on above: Performed By: #### C BCAD, CMP, ESR, CRP #### [facility] [address] [place] [id number] Monocytes/100 WBC (Bld) 6.3 % Normal [facility] Specialist Comment on above: Performed By: #### C BCAD, CMP, ESR, CRP #### [facility] [address], [place] [id number] Neutrophils (Bld) [#/Vol] 15.0 10*3/uL High 1.5-7.8 [facility] Specialist Comment on above: Performed By: #### C BCAD, CMP, ESR, CRP #### [facility] [address], [place] [id number] Neutrophils/100 WBC (Bld) 80.6 % Normal [facility] Specialist Comment on above: Performed By: #### C BCAD, CMP, ESR, CRP #### [facility] [address], [place] [id number] Platelet mean volume (Bld) [Entitic vol] 8.80 fL Normal 7.50-12.50 [facility] Specialist Comment on above: Performed By: #### C BCAD, CMP, ESR, CRP #### [facility] [address] [place] [id number] Platelets (Bld) [#/Vol] 586 10*3/uL High 140-400 [facility] Specialist Comment on above: Performed By: #### C BCAD, CMP, ESR, CRP #### [facility] [address] [place] [id number] RBC (Bld) [#/Vol] 4.23 10*6/uL Normal 4.20-5.80 [facility] Comment on above: Performed By: #### C BCAD, CMP, ESR, CRP #### [facility] [address], [place] [id number] RDW-SD 42.6 fL Normal 37.0-50.0 [facility] Comment on above: Performed By: #### C BCAD, CMP, ESR, CRP #### [facility] [address], [place] [id number] WBC (Bld) [#/Vol] 18.7 10*3/uL High 3.8-11.0 [facility] Comment on above: Performed By: #### C BCAD, CMP, ESR, CRP #### [facility] [address], [place] [id number] Comprehensive Metabolic Pane [facility] 10-23-2021 Albumin [Mass/Vol] 4.5 g/dL Normal 3.6-5.1 [facility] Comment on above: Performed By: #### C BCAD, CMP, ESR, CRP #### [facility] [address], [place] [id number] Albumin/Globulin [Mass ratio] 1.3 {ratio} Normal 1.0-2.5 [facility] Specialist Comment on above: Performed By: #### C BCAD, CMP, ESR, CRP #### [facility] [address], [place] [id number] ALP [Catalytic activity/Vol] 87 U/L Normal 40-129 [facility] Comment on above: Performed By: #### C BCAD, CMP, ESR, CRP #### [facility] [address], [place] [id number] ALT [Catalytic activity/Vol] 23 U/L Normal 9-46 [facility] Specialist Comment on above: Result Comment: 08/06 Female reference range changed. Performed By: #### C BCAD, CMP, ESR, CRP #### [facility] [address], [place] [id number] Anion gap [Moles/Vol] 23 mmol/L High 12-[address] [facility] Comment on above: Result Comment: Effe ctive 09/11/2019 reference range changed. Performed By: #### C BCAD, CMP, ESR, CRP #### [facility] [address], [place] [id number] AST [Catalytic activity/Vol] 20 U/L Normal 10-40 [facility] Comment on above: Performed By: #### C BCAD, CMP, ESR, CRP #### [facility] [address], [place] [id number] BUN/CREA 15 Ratio Normal 6-22 [facility] Comment on above: Performed By: #### C BCAD, CMP, ESR, CRP #### [facility] [address], [place] [id number] Calcium [Mass/Vol] 9.6 mg/dL Normal 8.6-10.2 [facility] Comment on above: Performed By: #### C BCAD, CMP, ESR, CRP #### [facility] [address], [place] [id number] Chloride [Moles/Vol] 102 mmol/L Normal 98-107 [facility] Comment on above: Performed By: #### C BCAD, CMP, ESR, CRP #### [facility] [address], [place] [id number] CO2 [Moles/Vol] 18 mmol/L Low 20-31 [facility] Comment on above: Performed By: #### C BCAD, CMP, ESR, CRP #### [facility] [address], [place] [id number] Creatinine [Mass/Vol] 4.5 mg/dL High 0.7-1.[address] [facility] Comment on above: Performed By: #### C BCAD, CMP, ESR, CRP #### [facility] [address], [place] [id number] eGFRAA 17 mL/min/1.73m2 Low >60 [facility] Comment on above: Performed By: #### C BCAD, CMP, ESR, CRP #### [facility] [address], [place] [id number] eGFRNAA 14 mL/min/1.73m2 Low >60 [place] Certified Drug Counselor Comment on above: Performed By: #### C BCAD, CMP, ESR, CRP #### [facility] [address], [place] [id number] Globulin (S) [Mass/Vol] 3.5 g/dL Normal 1.9-3.7 [facility] Certified Drug Counselor Comment on above: Performed By: #### C BCAD, CMP, ESR, CRP #### [facility] [address], [place] [id number] Glucose [Mass/Vol] 62 mg/dL Low 65-99 Юлия ch[facility] [place] Certified Drug Counselor Comment on above: Result Comment: For FASTING Glucose --- ADA reference ranges: Normal 65-99 mg/dl Prediabetes 100-125 Diabetes >/= 126 Performed By: #### C BCAD, CMP, ESR, CRP #### [facility] [address], [place] [id number] Potassium [Moles/Vol] 4.7 mmol/L Normal 3.5-5.5 [facility] Specialist Comment on above: Performed By: #### C BCAD, CMP, ESR, CRP #### [facility] [address], [place] [id number] Protein [Mass/Vol] 8.0 g/dL Normal 6.1-8.1 Юлия ch[facility] [place] Certified Drug Counselor Comment on above: Performed By: #### C BCAD, CMP, ESR, CRP #### [facility] [address], [place] [id number] Sodium [Moles/Vol] 139 mmol/L Normal 135-146 [facility] Counsel[facility] Comment on above: Performed By: #### C BCAD, CMP, ESR, CRP #### [facility] [address], [place] [id number] TBIL <0.3 Normal [facility] Certified Drug Counselor Comment on above: Performed By: #### C BCAD, CMP, ESR, CRP #### [facility] [address], [place] [id number] Urea nitrogen [Mass/Vol] 66 mg/dL High 7-25 [facility] Certified Drug Counselor Comment on above: Performed By: #### C BCAD, CMP, ESR, CRP #### [facility] [address], [place] [id number] RBC Sedimentation Rateon ESR (Bld) [Velocity] 118.00 mm/h High 0.00-20.00 [employer] [place] Certified Drug Counselor Comment on above: Performed By: #### C BCAD, CMP, ESR, CRP #### [facility] [address], [place] [id number] CNCOon 04-02-2020 CNCO Letter Text Normal [facility] PROGRESSon 06-20-2019 PROGRESS HNO ID: [id number] Author: Dc (Rn) JACOB Mistry Service: ? Author Type: Registered Nurse Type: Progress Notes Filed: 06/20/2019 7:28 AM Note Text: On intake, patient admits to chewing tobacco. Will need to quit. New Referral Referring Physician Dr. Ada Uriostegui Organ Type kidney ESRD No. Cause: DM Dialysis Dependant? [place] of Dialysis Facility: n/a Diabetes Yes. 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 No. Facility: n/a Willing to accept blood transfusion? Yes Potential Living Donor? Yes Full transplant evaluation? Yes Nephrology Screen Required? No If yes to nephrology screen, reason: n/a Dc Mistry RN Pre-Kidney AND Pancreas Traditional [employer] [facility] Practitioner [facility] Normal [facility] Vital Signs Date Time Vital Sign Value Performing Clinician Facility 03-11-2025 11:25-0400 Diastolic blood pressure 99 mm[Hg] Idania Petznick DO Work Phone: [facility] 03-11-2025 11:25-0400 Heart rate 76 /min Idania Petznick DO Work Phone: [facility] 03-11-2025 11:25-0400 Respiratory rate 20 /min Idania Petznick DO Work Phone: [facility] 03-11-2025 11:25-0400 SaO2% (BldA) [Mass fraction] 100 % Idania Petznick DO Work Phone: [facility] 03-11-2025 11:25-0400 Systolic blood pressure 176 mm[Hg] Idania Petznick DO Work Phone: [facility] 03-11-2025 10:29-0400 Body height 187.96 cm Idania Petznick DO Work Phone: [facility] 03-11-2025 10:29-0400 Body temperature 97.7 [degF] Idania Petznick DO Work Phone: [facility] 03-11-2025 10:29-0400 Body weight 145.1 kg Idania Petznick DO Work Phone: [facility] 03-07-2025 15:50-0400 Diastolic blood pressure 86 mm[Hg] Idania Petznick DO Work Phone: [facility] 03-07-2025 15:50-0400 Heart rate 67 /min Idania Petznick DO Work Phone: [facility] 03-07-2025 15:50-0400 SaO2% (BldA) [Mass fraction] 98 % Idania Petznick DO Work Phone: [facility] 03-07-2025 15:50-0400 Systolic blood pressure 158 mm[Hg] Idania Petznick DO Work Phone: [facility] 02-13-2025 08:38-0400 Body height 187.96 cm Idania Petznick DO Work Phone: [facility] 02-13-2025 08:38-0400 Body mass index (BMI) [Ratio] 41.4 kg/m2 Idania Petznick DO Work Phone: [facility] 02-13-2025 08:38-0400 Body weight 146.51 kg Idania Petznick DO Work Phone: [facility] 02-13-2025 08:38-0400 Diastolic blood pressure 80 mm[Hg] Idania Petznick DO Work Phone: [facility] 02-13-2025 08:38-0400 Heart rate 55 /min Idania Petznick DO Work Phone: [facility] 02-13-2025 08:38-0400 SaO2% (BldA) [Mass fraction] 97 % Idania Petznick DO Work Phone: [facility] 02-13-2025 08:38-0400 Systolic blood pressure 148 mm[Hg] Idania Petlizbethick DO Work Phone: [facility] 02-02-2025 11:42-0400 Body height 188 cm Sherley Templeton MD Work Phone: [facility] 02-02-2025 11:42-0400 Body mass index (BMI) [Ratio] 38.52 kg/m2 Sherley Templeton MD Work Phone: [facility] 02-02-2025 11:42-0400 Body weight 136.08 kg Sherley Templeton MD Work Phone: [facility] 02-02-2025 09:06-0400 Body temperature 98.01 [degF] Sherley Templeton MD Work Phone: [facility] 02-02-2025 09:06-0400 Diastolic blood pressure 75 mm[Hg] Sherley Templeton MD Work Phone: [facility] 02-02-2025 09:06-0400 Heart rate 79 /min Sherley Templeton MD Work Phone: [facility] 02-02-2025 09:06-0400 Respiratory rate 18 /min Sherley Tempelton MD Work Phone: [facility] 02-02-2025 09:06-0400 SaO2% (BldA) [Mass fraction] 96 % Sherley Templeton MD Work Phone: [facility] 02-02-2025 09:06-0400 Systolic blood pressure 183 mm[Hg] Sherley Templeton MD Work Phone: [facility] 01-02-2025 00:30-0400 Diastolic blood pressure 74 mm[Hg] Idania Marilin DO Work Phone: [facility] 01-02-2025 00:30-0400 Heart rate 74 /min Idania Petznick DO Work Phone: [facility] 01-02-2025 00:30-0400 Respiratory rate 20 /min Idania Petznick DO Work Phone: [facility] 01-02-2025 00:30-0400 SaO2% (BldA) [Mass fraction] 97 % Idania Petznick DO Work Phone: [facility] 01-02-2025 00:30-0400 Systolic blood pressure 157 mm[Hg] Idania Petznick DO Work Phone: [facility] 01-01-2025 21:07-0400 Body height 187.96 cm Idania Petznick DO Work Phone: [facility] 01-01-2025 21:07-0400 Body temperature 98.7 [degF] Idania Petznick DO Work Phone: [facility] 01-01-2025 21:07-0400 Body weight 144.35 kg Idania Petznick DO Work Phone: [facility] 12-29-2024 16:23-0400 Body height 187.96 cm Idania Petznick DO Work Phone: [facility] 12-29-2024 16:23-0400 Body temperature 98 [degF] Idania Petznick DO Work Phone: [facility] 12-29-2024 16:23-0400 Body weight 150 kg Idania Petznick DO Work Phone: [facility] 12-29-2024 16:23-0400 Diastolic blood pressure 93 mm[Hg] Idania Petznick DO Work Phone: [facility] 12-29-2024 16:23-0400 Heart rate 73 /min Idania Petznick DO Work Phone: [facility] 12-29-2024 16:23-0400 Respiratory rate 20 /min Idania Petznick DO Work Phone: [facility] 12-29-2024 16:23-0400 SaO2% (BldA) [Mass fraction] 97 % Idania Petznick DO Work Phone: [facility] 12-29-2024 16:23-0400 Systolic blood pressure 202 mm[Hg] Idania Petznick DO Work Phone: [facility] 12-05-2024 13:42-0400 Body height 188 cm Idania Petznick DO Work Phone: [facility] 12-05-2024 13:42-0400 Body mass index (BMI) [Ratio] 40.7 kg/m2 Idania Petznick DO Work Phone: [facility] 12-05-2024 13:42-0400 Body temperature 98.29 [degF] Idania Petznick DO Work Phone: [facility] 12-05-2024 13:42-0400 Body weight 143.79 kg Idania Petznick DO Work Phone: [facility] 12-05-2024 13:42-0400 Diastolic blood pressure 80 mm[Hg] Idania Petznick DO Work Phone: [facility] 12-05-2024 13:42-0400 Heart rate 82 /min Idania Petznick DO Work Phone: [facility] 12-05-2024 13:42-0400 SaO2% (BldA) [Mass fraction] 100 % Idania Petznick DO Work Phone: [facility] 12-05-2024 13:42-0400 Systolic blood pressure 134 mm[Hg] Idania Petznick DO Work Phone: [facility] 11-27-2024 22:43-0400 Body height 187.96 cm Idania Petznick DO Work Phone: [facility] 11-27-2024 22:43-0400 Body temperature 98.6 [degF] Idania Petznick DO Work Phone: [facility] 11-27-2024 22:43-0400 Body weight 143.7 kg Idania Petznick DO Work Phone: [facility] 11-27-2024 22:43-0400 Diastolic blood pressure 80 mm[Hg] Idania Petznick DO Work Phone: 2(125)317-984480 [address] 11-27-2024 22:43-0400 Heart rate 88 /min Idania Petznick DO Work Phone: 7(801)475-692880 [address] 11-27-2024 22:43-0400 Respiratory rate 16 /min Idania Petznick DO Work Phone: 8(064)038-822480 [address] 11-27-2024 22:43-0400 SaO2% (BldA) [Mass fraction] 96 % Idania Petznick DO Work Phone: 5(044)[phone] [place] [address] 11-27-2024 22:43-0400 Systolic blood pressure 156 mm[Hg] Idania Petznick DO Work Phone: 2(781)369-433080 [address] 10-29-2024 17:26-0500 Diastolic blood pressure 77 mm[Hg] Idania Petznick DO Work Phone: [facility] 10-29-2024 17:26-0500 Systolic blood pressure 175 mm[Hg] Idania Petznick DO Work Phone: 7(305)997-008580 [address] 10-29-2024 16:38-0500 Body height 187.96 cm Idania Petznick DO Work Phone: 3(877)775-779080 [address] 10-29-2024 16:38-0500 Body temperature 98.2 [degF] Idania Petznick DO Work Phone: 9(969)697-665980 [address] 10-29-2024 16:38-0500 Body weight 141.6 kg Idania Petznick DO Work Phone: [facility] 10-29-2024 16:38-0500 Heart rate 80 /min Idania Petznick DO Work Phone: 2(362)[phone] [place] [address] 10-29-2024 16:38-0500 Respiratory rate 18 /min Idania Petznick DO Work Phone: [facility] 10-29-2024 16:38-0500 SaO2% (BldA) [Mass fraction] 98 % Idania Petznick DO Work Phone: [facility] [facility] 10[facility]24 13:39-0500 Body height 188 cm Idania Petznick DO Work Phone: [facility] 10-02-2024 13:39-0500 Body mass index (BMI) [Ratio] 39.42 kg/m2 Idania Petznick DO Work Phone: [facility] 10-02-2024 13:39-0500 Body temperature 98.4 [degF] Idania Petznick DO Work Phone: [facility] 10-02-2024 13:39-0500 Body weight 139.25 kg Idania Petznick DO Work Phone: [facility] 10-02-2024 13:39-0500 Diastolic blood pressure 64 mm[Hg] Idania Petznick DO Work Phone: [facility] 10-02-2024 13:39-0500 Heart rate 85 /min Idania Petznick DO Work Phone: [facility] 10-02-2024 13:39-0500 SaO2% (BldA) [Mass fraction] 96 % Idania Petznick DO Work Phone: [facility] 10-02-2024 13:39-0500 Systolic blood pressure 110 mm[Hg] Idania Petznick DO Work Phone: [facility] 09-19-2024 10:09-0500 Body height 188 cm Idania Petznick DO Work Phone: [facility] 09-19-2024 10:09-0500 Body mass index (BMI) [Ratio] 41.09 kg/m2 Idania Petznick DO Work Phone: [facility] 09-19-2024 10:09-0500 Body temperature 98.29 [degF] Idania Petznick DO Work Phone: [facility] 09-19-2024 10:09-0500 Body weight 145.15 kg Idania Petznick DO Work Phone: [facility] 09-19-2024 10:09-0500 Diastolic blood pressure 68 mm[Hg] Idania Petznick DO Work Phone: [facility] 09-19-2024 10:09-0500 Heart rate 78 /min Idania Petznick DO Work Phone: [facility] 09-19-2024 10:09-0500 SaO2% (BldA) [Mass fraction] 95 % Idania Petznick DO Work Phone: [facility] 09-19-2024 10:09-0500 Systolic blood pressure 122 mm[Hg] Idania Petznick DO Work Phone: [facility] 09-04-2024 13:36-0500 Body height 188 cm Idania Petznick DO Work Phone: [facility] 09-04-2024 13:36-0500 Body mass index (BMI) [Ratio] 40.06 kg/m2 Idania Petznick DO Work Phone: [facility] 09-04-2024 13:36-0500 Body temperature 98.4 [degF] Idania Petznick DO Work Phone: [facility] 09-04-2024 13:36-0500 Body weight 141.52 kg Idania Petznick DO Work Phone: [facility] 09-04-2024 13:36-0500 Diastolic blood pressure 62 mm[Hg] Idania Petznick DO Work Phone: [facility] 09-04-2024 13:36-0500 Heart rate 81 /min Idania Petznick DO Work Phone: [facility] 09-04-2024 13:36-0500 SaO2% (BldA) [Mass fraction] 95 % Idania Petznick DO Work Phone: [facility] 09-04-2024 13:36-0500 Systolic blood pressure 124 mm[Hg] Idania Petznick DO Work Phone: [facility] 08-29-2024 01:08-0500 Body temperature 98 [degF] Idania Petznick DO Work Phone: [facility] 08-29-2024 01:08-0500 Diastolic blood pressure 68 mm[Hg] Idania Petznick DO Work Phone: 4(210)750-588780 [address] 08-29-2024 01:08-0500 Heart rate 90 /min Idania Petznick DO Work Phone: 6(817)881-899280 [address] 08-29-2024 01:08-0500 Respiratory rate 18 /min Idania Petznick DO Work Phone: [facility] 08-29-2024 01:08-0500 SaO2% (BldA) [Mass fraction] 95 % Idania Petznick DO Work Phone: 2(395)129-425123 [place] [address] 08-29-2024 01:08-0500 Systolic blood pressure 114 mm[Hg] Idania Petznick DO Work Phone: 1(252)114-213603 [place] [address] 08-28-2024 22:37-0500 Body height 187.96 cm Idania Petznick DO Work Phone: 8(412)725-356623 [place] [address] 08-28-2024 22:37-0500 Body weight 144.6 kg Idania Petznick DO Work Phone: [facility] 08-07-2024 13:53-0500 Body height 188 cm Idania Petznick DO Work Phone: [facility] 08-07-2024 13:53-0500 Body mass index (BMI) [Ratio] 40.19 kg/m2 Idania Petznick DO Work Phone: [facility] 08-07-2024 13:53-0500 Body temperature 96.91 [degF] Idania Petznick DO Work Phone: [facility] 08-07-2024 13:53-0500 Body weight 141.98 kg Idania Petznick DO Work Phone: [facility] 08-07-2024 13:53-0500 Diastolic blood pressure 78 mm[Hg] Idania Petznick DO Work Phone: [facility] 08-07-2024 13:53-0500 Heart rate 83 /min Idania Petznick DO Work Phone: [facility] 08-07-2024 13:53-0500 SaO2% (BldA) [Mass fraction] 91 % Idania Petznick DO Work Phone: [facility] 08-07-2024 13:53-0500 Systolic blood pressure 134 mm[Hg] Idania Petznick DO Work Phone: [facility] 05-16-2024 09:17-0400 Body height 188 cm Idania Petznick DO Work Phone: [facility] 05-16-2024 09:17-0400 Body mass index (BMI) [Ratio] 40.37 kg/m2 Idania Petznick DO Work Phone: [facility] 05-16-2024 09:17-0400 Body temperature 96.91 [degF] Idania Petznick DO Work Phone: [facility] 05-16-2024 09:17-0400 Body weight 142.61 kg Idania Petznick DO Work Phone: [facility] 05-16-2024 09:17-0400 Diastolic blood pressure 62 mm[Hg] Idania Petznick DO Work Phone: [facility] 05-16-2024 09:17-0400 Heart rate 81 /min Idania Petznick DO Work Phone: [facility] 05-16-2024 09:17-0400 SaO2% (BldA) [Mass fraction] 94 % Idania Petznick DO Work Phone: [facility] 05-16-2024 09:17-0400 Systolic blood pressure 154 mm[Hg] Idania Petznick DO Work Phone: [facility] 05-15-2024 14:51-0400 Body height 187.96 cm DO Idania Petznick Work Phone: 1(820)786-997023 [place] [address] 05-15-2024 14:51-0400 Body temperature 98.5 [degF] DO Idania Petznick Work Phone: 8(582)256-323503 [place] [address] 05-15-2024 14:51-0400 Body weight 142.25 kg DO Idania Petznick Work Phone: 9(490)634-754203 [place] [address] 05-15-2024 14:51-0400 Diastolic blood pressure 83 mm[Hg] DO Idania Petznick Work Phone: 7(033)022-433603 [place] [address] 05-15-2024 14:51-0400 Heart rate 64 /min DO Idania Petznick Work Phone: 5(426)690-036503 [place] [address] 05-15-2024 14:51-0400 Respiratory rate 21 /min DO Idania Petznick Work Phone: 8(208)506-672003 [place] [address] 05-15-2024 14:51-0400 SaO2% (BldA) [Mass fraction] 97 % DO Idania Petznick Work Phone: 3(274)609-068703 [place] [address] 05-15-2024 14:51-0400 Systolic blood pressure 183 mm[Hg] DO Idania Petznick Work Phone: 3(833)196-014003 [place] [address] 02-04-2024 12:00-0400 Diastolic blood pressure 73 mm[Hg] DO Idania Petznick Work Phone: 8(069)520-976303 [place] [address] 02-04-2024 12:00-0400 Heart rate 65 /min DO Idania Petznick Work Phone: 2(163)281-306980 [address] 02-04-2024 12:00-0400 Respiratory rate 16 /min DO Idania Petznick Work Phone: 2(259)823-593003 [place] [address] 02-04-2024 12:00-0400 SaO2% (BldA) [Mass fraction] 96 % DO Idania Petznick Work Phone: 4(198)536-285603 [place] [address] 02-04-2024 12:00-0400 Systolic blood pressure 133 mm[Hg] DO Idania Petznick Work Phone: [facility] 02-04-2024 10:38-0400 Body height 187.96 cm DO Idania Petznick Work Phone: [facility] 02-04-2024 10:38-0400 Body temperature 98.5 [degF] DO Idania Petznick Work Phone: [facility] 02-04-2024 10:38-0400 Body weight 142.88 kg DO Idania Petznick Work Phone: [facility] 01-03-2024 09:34-0400 Body height 187.96 cm DO Idania Petznick Work Phone: [facility] 01-03-2024 09:34-0400 Body mass index (BMI) [Ratio] 40.4 kg/m2 DO Idania Petznick Work Phone: [facility] 01-03-2024 09:34-0400 Body temperature 97.8 [degF] DO Idania Petznick Work Phone: [facility] 01-03-2024 09:34-0400 Body weight 142.88 kg DO Idania Petznick Work Phone: [facility] 01-03-2024 09:34-0400 Diastolic blood pressure 72 mm[Hg] DO Idania Petznick Work Phone: [facility] 01-03-2024 09:34-0400 Heart rate 76 /min DO Idania Petznick Work Phone: [facility] 01-03-2024 09:34-0400 Respiratory rate 16 /min DO Idania Petznick Work Phone: [facility] 01-03-2024 09:34-0400 SaO2% (BldA) [Mass fraction] 98 % DO Idania Petznick Work Phone: [facility] 01-03-2024 09:34-0400 Systolic blood pressure 124 mm[Hg] DO Idania Petznick Work Phone: 4(284)276-143523 [place] [address] 12-24-2023 13:15-0400 Diastolic blood pressure 73 mm[Hg] DO Diania Petznick Work Phone: 3(682)965-561323 [place] [address] 12-24-2023 13:15-0400 Heart rate 76 /min DO Idania Petznick Work Phone: 6(966)393-758903 [place] [address] 12-24-2023 13:15-0400 Respiratory rate 16 /min DO Idania Petznick Work Phone: 3(412)256-158603 [place] [address] 12-24-2023 13:15-0400 SaO2% (BldA) [Mass fraction] 97 % DO Idania Petznick Work Phone: 4(564)073-164903 [place] [address] 12-24-2023 13:15-0400 Systolic blood pressure 135 mm[Hg] DO Idania Petznick Work Phone: 5(740)945-626203 [place] [address] 12-24-2023 11:05-0400 Body height 187.96 cm DO Idania Petznick Work Phone: 0(717)067-037823 [place] [address] 12-24-2023 11:05-0400 Body temperature 97.5 [degF] DO Idania Petznick Work Phone: 7(037)928-372203 [place] [address] 12-24-2023 11:05-0400 Body weight 142.88 kg DO Idania Petznick Work Phone: 0(349)970-709580 [address] 12-06-2023 12:01-0400 Body height 187.96 cm DO Idania Petznick Work Phone: 6(248)950-580080 [address] 12-06-2023 12:01-0400 Body mass index (BMI) [Ratio] 42 kg/m2 DO Idania Petznick Work Phone: 5(152)312-761103 [place] [address] 12-06-2023 12:01-0400 Body temperature 98 [degF] DO Idania Petznick Work Phone: 9(369)993-292823 [place] [address] 12-06-2023 12:01-0400 Body weight 148.77 kg DO Idania Petznick Work Phone: 9(025)228-523623 [place] [address] 12-06-2023 12:01-0400 Diastolic blood pressure 78 mm[Hg] DO Idania Petznick Work Phone: 5(920)885-993423 [place] [address] 12-06-2023 12:01-0400 Heart rate 82 /min DO Idania Petznick Work Phone: 0(774)514-758880 [address] 12-06-2023 12:01-0400 SaO2% (BldA) [Mass fraction] 97 % DO Idania Petznick Work Phone: 7(221)536-447480 [address] 12-06-2023 12:01-0400 Systolic blood pressure 132 mm[Hg] DO Idania Petznick Work Phone: 8(388)385-287380 [address] 11-25-2023 14:43-0400 Heart rate 79 /min DO Idania Petznick Work Phone: 3(968)965-667280 [address] 11-25-2023 14:36-0400 Body height 187.96 cm DO Idania Petznick Work Phone: 5(563)161-201380 [address] 11-25-2023 14:36-0400 Body temperature 97.8 [degF] DO Idania Petznick Work Phone: 1(458)345-988480 [address] 11-25-2023 14:36-0400 Body weight 148.7 kg DO Idania Petznick Work Phone: 0(803)726-548580 [address] 11-25-2023 14:36-0400 Diastolic blood pressure 70 mm[Hg] DO Idania Petznick Work Phone: 4(793)537-233123 [place] [address] 11-25-2023 14:36-0400 Respiratory rate 18 /min DO Idania Petznick Work Phone: 1(565)781-791923 [place] [address] 11-25-2023 14:36-0400 SaO2% (BldA) [Mass fraction] 93 % DO Idania Petznick Work Phone: 6(399)654-662180 [address] 11-25-2023 14:36-0400 Systolic blood pressure 169 mm[Hg] DO Idania Petznick Work Phone: 7(693)665-428523 [place] [address] 11-23-2023 14:47-0400 Body temperature 98 [degF] DO Idania Petznick Work Phone: [facility] 11-23-2023 14:47-0400 Diastolic blood pressure 79 mm[Hg] DO Idania Petznick Work Phone: [facility] 11-23-2023 14:47-0400 Heart rate 77 /min DO Idania Petznick Work Phone: 2(457)045-210823 [place] [address] 11-23-2023 14:47-0400 Respiratory rate 18 /min DO Idania Petznick Work Phone: 6(210)042-337523 [place] [address] 11-23-2023 14:47-0400 SaO2% (BldA) [Mass fraction] 98 % DO Idania Petznick Work Phone: 9(301)659-921823 [place] [address] 11-23-2023 14:47-0400 Systolic blood pressure 172 mm[Hg] DO Idania Petznick Work Phone: 9(075)752-713723 [place] [address] 11-23-2023 05:54-0400 Body weight 146.2 kg DO Idania Petznick Work Phone: 2(519)882-905423 [place] [address] 11-21-2023 11:53-0400 Body height 187.96 cm DO Idania Petznick Work Phone: [facility] 11-20-2023 21:43-0400 Body temperature 97.7 [degF] DO Idania Petznick Work Phone: [facility] 11-20-2023 21:30-0400 Diastolic blood pressure 76 mm[Hg] DO Idania Petznick Work Phone: [facility] 11-20-2023 21:30-0400 Heart rate 90 /min DO Idania Petznick Work Phone: [facility] 11-20-2023 21:30-0400 Respiratory rate 18 /min DO Idania Petznick Work Phone: [facility] 11-20-2023 21:30-0400 SaO2% (BldA) [Mass fraction] 95 % DO Idania Petznick Work Phone: [facility] 11-20-2023 21:30-0400 Systolic blood pressure 121 mm[Hg] DO Idania Petznick Work Phone: [facility] 11-20-2023 18:41-0400 Body height 187.96 cm DO Idania Petznick Work Phone: [facility] 11-20-2023 18:41-0400 Body weight 147.25 kg DO Idania Petznick Work Phone: [facility] 11-08-2023 09:45-0500 Body height 187.96 cm DO Idania Petznick Work Phone: [facility] 11-08-2023 09:45-0500 Body mass index (BMI) [Ratio] 41.1 kg/m2 DO Idania Petznick Work Phone: [facility] 11-08-2023 09:45-0500 Body temperature 97.1 [degF] DO Idania Petznick Work Phone: [facility] 11-08-2023 09:45-0500 Body weight 145.14 kg DO Idania Petznick Work Phone: [facility] 11-08-2023 09:45-0500 Diastolic blood pressure 70 mm[Hg] DO Idania Petznick Work Phone: [facility] 11-08-2023 09:45-0500 Heart rate 78 /min DO Idania Petznick Work Phone: [facility] 11-08-2023 09:45-0500 SaO2% (BldA) [Mass fraction] 92 % DO Idania Petznick Work Phone: [facility] 11-08-2023 09:45-0500 Systolic blood pressure 160 mm[Hg] DO Idania Petznick Work Phone: [facility] 10-27-2023 14:48-0500 Diastolic blood pressure 67 mm[Hg] DO Idania Petznick Work Phone: [facility] 10-27-2023 14:48-0500 Heart rate 83 /min DO Idania Petznick Work Phone: 2(719)193-600403 [place] [address] 10-27-2023 14:48-0500 Respiratory rate 16 /min DO Idania Petznick Work Phone: 7(030)471-988703 [place] [address] 10-27-2023 14:48-0500 SaO2% (BldA) [Mass fraction] 99 % DO Idania Petznick Work Phone: 0(600)342-751980 [address] 10-27-2023 14:48-0500 Systolic blood pressure 142 mm[Hg] DO Idania Petznick Work Phone: 6(896)828-266503 [place] [address] 10-27-2023 13:12-0500 Body height 187.96 cm DO Idania Petznick Work Phone: 3(290)771-018803 [place] [address] 10-27-2023 13:12-0500 Body temperature 98 [degF] DO Idania Petznick Work Phone: 1(412)886-196603 [place] [address] 10-27-2023 13:12-0500 Body weight 154.22 kg DO Idania Petznick Work Phone: 9(123)736-029603 [place] [address] 10-13-2023 11:02-0500 Body height 188 cm Flakito High DO Work Phone: [facility] 10-13-2023 11:02-0500 Body mass index (BMI) [Ratio] 43.65 kg/m2 Flakito Kilonikko DO Work Phone: [facility] 10-13-2023 11:02-0500 Body weight 154.22 kg Flakito Kilonikko DO Work Phone: [facility] 10-06-2023 14:18-0500 Diastolic blood pressure 67 mm[Hg] DO Idania Petznick Work Phone: 1(629)302-093280 [address] 10-06-2023 14:18-0500 Heart rate 71 /min DO Idania Petznick Work Phone: 5(822)259-397323 [place] [address] 10-06-2023 14:18-0500 Respiratory rate 16 /min DO Idania Petznick Work Phone: [facility] 10-06-2023 14:18-0500 SaO2% (BldA) [Mass fraction] 96 % DO Idania Petznick Work Phone: [facility] 10-06-2023 14:18-0500 Systolic blood pressure 141 mm[Hg] DO Idania Petznick Work Phone: [facility] 10-06-2023 13:05-0500 Inhaled oxygen flow rate 6 L/min DO Idania Petznick Work Phone: [facility] 10-06-2023 12:55-0500 Body temperature 97.2 [degF] DO Idania Petznick Work Phone: [facility] 10-06-2023 09:51-0500 Body height 187.96 cm DO Idania Petznick Work Phone: [facility] 10-06-2023 09:51-0500 Body mass index (BMI) [Ratio] 44.3 kg/m2 DO Idania Petznick Work Phone: [facility] 10-06-2023 09:51-0500 Body weight 156.48 kg DO Idania Petznick Work Phone: [facility] 10-04-2023 10:45-0500 Body height 187.96 cm Ramirez Jean Other [facility] 10-04-2023 10:45-0500 Body mass index (BMI) [Ratio] 44.29 kg/m2 Ramirez Jean Other [employer] Other 10-04-2023 10:45-0500 Body temperature 98 [degF] Ramirez Jean Other [facility] [facility] [employer] Other 10-04-2023 10:45-0500 Body weight 156.49 kg Ramirez Jean Other [facility] [employer] Other 10-04-2023 10:45-0500 Body weight 156.48 kg DO Idania Petznick Work Phone: [facility] 10-04-2023 10:45-0500 Diastolic blood pressure 72 mm[Hg] Ramirez Jacobsoniar Other [facility] 10-04-2023 10:45-0500 SaO2% (BldA) [Mass fraction] 93 % Ramirez Jacobbrenna Other [employer] Other 10-04-2023 10:45-0500 Systolic blood pressure 150 mm[Hg] Ramirez Jacobrer Other [facility] 09-26-2023 00:38-0500 Diastolic blood pressure 69 mm[Hg] DO Idania Petznick Work Phone: [facility] 09-26-2023 00:38-0500 Heart rate 82 /min DO Idania Petznick Work Phone: [facility] 09-26-2023 00:38-0500 Respiratory rate 20 /min DO Idania Petznick Work Phone: [facility] 09-26-2023 00:38-0500 SaO2% (BldA) [Mass fraction] 96 % DO Idania Petznick Work Phone: [facility] 09-26-2023 00:38-0500 Systolic blood pressure 138 mm[Hg] DO Idania Petznick Work Phone: [facility] 09-25-2023 19:04-0500 Body height 184.15 cm DO Idania Petznick Work Phone: [facility] 09-25-2023 19:04-0500 Body temperature 97.9 [degF] DO Idania Petznick Work Phone: [facility] 09-25-2023 19:04-0500 Body weight 158 kg DO Idania Petznick Work Phone: [facility] 09-16-2023 16:09-0500 Diastolic blood pressure 62 mm[Hg] DO Idania Petznick Work Phone: [facility] 09-16-2023 16:09-0500 Heart rate 68 /min DO Idania Petznick Work Phone: [facility] 09-16-2023 16:09-0500 Respiratory rate 16 /min DO Idania Petznick Work Phone: [facility] 09-16-2023 16:09-0500 SaO2% (BldA) [Mass fraction] 94 % DO Idania Petznick Work Phone: [facility] 09-16-2023 16:09-0500 Systolic blood pressure 119 mm[Hg] DO Idania Petznick Work Phone: [facility] 09-16-2023 13:54-0500 Body temperature 97.9 [degF] DO Idania Petznick Work Phone: [facility] 09-16-2023 13:24-0500 Inhaled oxygen flow rate 10 L/min DO Idania Petznick Work Phone: [facility] 09-16-2023 11:32-0500 Body mass index (BMI) [Ratio] 45.9 kg/m2 DO Idania Petznick Work Phone: [facility] 09-16-2023 11:26-0500 Body height 185.42 cm DO Idania Petznick Work Phone: [facility] 09-16-2023 11:26-0500 Body weight 157.85 kg DO Idania Petznick Work Phone: [facility] 06-16-2023 11:00-0400 Body height 187.96 cm Michelle Kennedy Other [employer] Other 06-16-2023 11:00-0400 Body mass index (BMI) [Ratio] 43.93 kg/m2 Tondra Mapus Other [employer] Other 06-16-2023 11:00-0400 Body weight 155.22 kg Tondra Mapus Other [employer] Other 06-16-2023 11:00-0400 Diastolic blood pressure 82 mm[Hg] Tondra Mapus Other [employer] Other 06-16-2023 11:00-0400 Respiratory rate 18 /min Tondra Mapus Other [employer] Other 06-16-2023 11:00-0400 SaO2% (BldA) [Mass fraction] 98 % Tondra Mapus Other [employer] Other 06-16-2023 11:00-0400 Systolic blood pressure 160 mm[Hg] Tondra Mapus Other [employer] Other 11-07-2022 16:00-0500 Body temperature 97.8 [degF] DO Idnaia Petznick Work Phone: [facility] 11-07-2022 16:00-0500 Diastolic blood pressure 75 mm[Hg] DO Idania Petznick Work Phone: [facility] 11-07-2022 16:00-0500 Heart rate 86 /min DO Idania Petznick Work Phone: [facility] 11-07-2022 16:00-0500 Respiratory rate 16 /min DO Idania Petznick Work Phone: [facility] 11-07-2022 16:00-0500 SaO2% (BldA) [Mass fraction] 96 % DO Idania Petznick Work Phone: [facility] 11-07-2022 16:00-0500 Systolic blood pressure 162 mm[Hg] DO Idania Petznick Work Phone: 3(365)849-634123 [place] [address] 11-07-2022 06:00-0500 Body weight 144.9 kg DO Idania Petznick Work Phone: 4(891)761-905680 [address] 11-06-2022 14:55-0500 Inhaled oxygen flow rate 3 L/min DO Idania Petznick Work Phone: 6(118)460-158580 [address] 11-06-2022 13:24-0500 Body height 187.96 cm DO Idania Petznick Work Phone: 6(911)262-362780 [address] 11-06-2022 13:24-0500 Body mass index (BMI) [Ratio] 41 kg/m2 DO Idania Petznick Work Phone: 6(812)280-976580 [address] 11-04-2022 20:00-0500 Diastolic blood pressure 94 mm[Hg] DO Idania Petznick Work Phone: 0(524)558-077723 [place] [address] 11-04-2022 20:00-0500 Heart rate 81 /min DO Idania Petznick Work Phone: 9(550)488-627023 [place] [address] 11-04-2022 20:00-0500 Respiratory rate 20 /min DO Idania Petznick Work Phone: 6(947)744-309180 [address] 11-04-2022 20:00-0500 SaO2% (BldA) [Mass fraction] 97 % DO Idania Petznick Work Phone: [facility] 11-04-2022 20:00-0500 Systolic blood pressure 186 mm[Hg] DO Idania Petznick Work Phone: 8(148)984-630323 [place] [address] 11-04-2022 13:57-0500 Body height 187.96 cm DO Idania Petznick Work Phone: 8(361)979-488423 [place] [address] 11-04-2022 13:57-0500 Body temperature 99.1 [degF] DO Idania Petznick Work Phone: 9(479)990-828323 [place] [address] 11-04-2022 13:57-0500 Body weight 145 kg DO Idania Petznick Work Phone: 0(720)700-973123 [place] [address] 11-01-2022 23:00-0500 Diastolic blood pressure 70 mm[Hg] DO Idania Petznick Work Phone: 6(441)571-652880 [address] 11-01-2022 23:00-0500 Heart rate 80 /min DO Idania Petznick Work Phone: 3(159)775-404780 [address] 11-01-2022 23:00-0500 Respiratory rate 20 /min DO Idania Petznick Work Phone: 1(631)555-255423 [place] [address] 11-01-2022 23:00-0500 SaO2% (BldA) [Mass fraction] 98 % DO Idania Petznick Work Phone: 9(142)137-148823 [place] [address] 11-01-2022 23:00-0500 Systolic blood pressure 162 mm[Hg] DO Idania Petznick Work Phone: 2(606)914-295280 [address] 11-01-2022 21:02-0500 Body height 187.96 cm DO Idania Petznick Work Phone: 2(918)097-803823 [place] [address] 11-01-2022 21:02-0500 Body temperature 98 [degF] DO Idania Petznick Work Phone: 7(866)109-365623 [place] [address] 11-01-2022 21:02-0500 Body weight 149.7 kg DO Idania Petznick Work Phone: 7(820)132-397123 [place] [address] 10-10-2022 05:23-0500 Diastolic blood pressure 81 mm[Hg] DO Idania Petznick Work Phone: 1(692)779-041823 [place] [address] 10-10-2022 05:23-0500 Heart rate 92 /min DO Idania Petznick Work Phone: 6(004)880-454423 [place] [address] 10-10-2022 05:23-0500 Respiratory rate 20 /min DO Idania Petznick Work Phone: 4(498)684-310823 [place] [address] 10-10-2022 05:23-0500 SaO2% (BldA) [Mass fraction] 98 % DO Idania Petznick Work Phone: [facility] 10-10-2022 05:23-0500 Systolic blood pressure 165 mm[Hg] DO Idania Petznick Work Phone: [facility] 10-10-2022 04:13-0500 Body height 187.96 cm DO Idania Petznick Work Phone: 2(861)[phone] [place] [address] 10-10-2022 04:13-0500 Body temperature 97.1 [degF] DO Idania Petznick Work Phone: 7(225)[phone] [place] [address] 10-10-2022 04:13-0500 Body weight 152 kg DO Idania Petznick Work Phone: 9(340)[phone] [address] 09-23-2022 04:15-0500 Diastolic blood pressure 89 mm[Hg] DO Idania Petznick Work Phone: 3(298)962-941580 [address] 09-23-2022 04:15-0500 Heart rate 72 /min DO Idania Petznick Work Phone: 2(614)[phone] [place] [address] 09-23-2022 04:15-0500 Respiratory rate 18 /min DO Idania Petznick Work Phone: 2(954)[phone] [place] [address] 09-23-2022 04:15-0500 SaO2% (BldA) [Mass fraction] 98 % DO Idania Petznick Work Phone: [facility] 09-23-2022 04:15-0500 Systolic blood pressure 156 mm[Hg] DO Idania Petznick Work Phone: [facility] 09-22-2022 22:41-0500 Body height 187.96 cm DO Idania Petznick Work Phone: 3(852)[phone] [place] [address] 09-22-2022 22:41-0500 Body temperature 98.2 [degF] DO Idania Petznick Work Phone: [facility] 09-22-2022 22:41-0500 Body weight 144.75 kg DO Idania Petznick Work Phone: 6([phone])[phone] [place] [address] 08-12-2022 16:00-0500 Body height 187.96 cm Ada Moody Other [employer] Other 08-12-2022 16:00-0500 Body mass index (BMI) [Ratio] 40.36 kg/m2 Ada Moody Other [employer] Other 08-12-2022 16:00-0500 Body temperature 97.7 [degF] Ada Moody Other [employer] Other 08-12-2022 16:00-0500 Body weight 142.61 kg Ada Moody Other [employer] Other 08-12-2022 16:00-0500 Diastolic blood pressure 62 mm[Hg] Ada Moody Other [employer] Other 08-12-2022 16:00-0500 Respiratory rate 18 /min Ada Moody Other [employer] Other 08-12-2022 16:00-0500 SaO2% (BldA) [Mass fraction] 96 % Ada Moody Other [employer] Other 08-12-2022 16:00-0500 Systolic blood pressure 138 mm[Hg] Ada Moody Other [employer] Other 07-29-2022 02:30-0500 Diastolic blood pressure 75 mm[Hg] DO Idania Petznick Work Phone: [facility] 07-29-2022 02:30-0500 Heart rate 80 /min DO Idania Petznick Work Phone: [facility] 07-29-2022 02:30-0500 Respiratory rate 20 /min DO Idania Petznick Work Phone: [facility] 07-29-2022 02:30-0500 SaO2% (BldA) [Mass fraction] 94 % DO Idania Petznick Work Phone: [facility] 07-29-2022 02:30-0500 Systolic blood pressure 121 mm[Hg] DO Idania Petznick Work Phone: [facility] 07-29-2022 00:02-0500 Body height 185.42 cm DO Idania Petznick Work Phone: [facility] 07-29-2022 00:02-0500 Body temperature 97.6 [degF] DO Idania Petznick Work Phone: [facility] 07-29-2022 00:02-0500 Body weight 143.7 kg DO Idania Petznick Work Phone: [facility] 07-17-2022 13:13-0500 Body height 182.88 cm [facility] 07-17-2022 13:13-0500 Body mass index (BMI) [Ratio] 42.31 kg/m2 [facility] 07-17-2022 13:13-0500 Body surface area Derived from formula 2.68 m2 [facility] 07-17-2022 13:13-0500 Body weight 141.52 kg [facility] 07-17-2022 13:13-0500 Body weight 0.1 {percentile} [facility] 07-17-2022 13:13-0500 Diastolic blood pressure 70 mm[Hg] [facility] 07-17-2022 13:13-0500 Heart rate 64 /min [facility] 07-17-2022 13:13-0500 Systolic blood pressure 130 mm[Hg] [facility] 05-20-2022 17:20-0400 Body height 187.96 cm Ada Moody Other [facility] Other 05-20-2022 17:20-0400 Body mass index (BMI) [Ratio] 39.77 kg/m2 Ada Moody Other [facility] Other 05-20-2022 17:20-0400 Body temperature 96.4 [degF] Ada Moody Other [facility] Other 05-20-2022 17:20-0400 Body weight 140.53 kg Ada Moody Other [facility] Other 05-20-2022 17:20-0400 Diastolic blood pressure 72 mm[Hg] Ada Moody Other [facility] [employer] Other 05-20-2022 17:20-0400 Respiratory rate 18 /min Ada Moody Other [facility] Other 05-20-2022 17:20-0400 SaO2% (BldA) [Mass fraction] 97 % Ada Moody Other [facility] Other 05-20-2022 17:20-0400 Systolic blood pressure 150 mm[Hg] Ada Moody Other [facility] [employer] Other 03-12-2022 17:20-0400 Body height 187.96 cm Ada Moody Other [facility] Other 03-12-2022 17:20-0400 Body mass index (BMI) [Ratio] 38.68 kg/m2 Ada Moody Other [facility] Other 03-12-2022 17:20-0400 Body temperature 96.4 [degF] Ada Moody Other [facility] Other 03-12-2022 17:20-0400 Body weight 136.67 kg Ada Moody Other [facility] Other 03-12-2022 17:20-0400 Diastolic blood pressure 88 mm[Hg] Ada Moody Other [facility] Other 03-12-2022 17:20-0400 Respiratory rate 18 /min Ada Moody Other [facility] Other 03-12-2022 17:20-0400 SaO2% (BldA) [Mass fraction] 98 % Ada Moody Other [facility] Other 03-12-2022 17:20-0400 Systolic blood pressure 160 mm[Hg] Ada Moody Other [facility] Other 12-03-2021 17:20-0400 Body height 248.92 cm Ada Moody Other [facility] Other 12-03-2021 17:20-0400 Body mass index (BMI) [Ratio] 22.48 kg/m2 Ada Moody Other [facility] Other 12-03-2021 17:20-0400 Body temperature 96.7 [degF] Ada Moody Other [facility] Other 12-03-2021 17:20-0400 Body weight 139.3 kg Ada Moody Other [facility] Other 12-03-2021 17:20-0400 Diastolic blood pressure 90 mm[Hg] Ada Moody Other [facility] Other 12-03-2021 17:20-0400 Respiratory rate 18 /min Ada Moody Other [facility] Other 12-03-2021 17:20-0400 SaO2% (BldA) [Mass fraction] 96 % Ada Moody Other [facility] Other 12-03-2021 17:20-0400 Systolic blood pressure 160 mm[Hg] Ada Moody Other [employer] Other Encounters Encounter Date Encounter Type Care Provider Facility Start: 03-11-2025 End: 03-11-2025 Emergency department patient visit Idania Ricketts DO Work Phone: -Emergency Room Work Phone: Start: 03-07-2025 End: 03-07-2025 ambulatory Idania Ricketts DO Work Phone: [facility] Work Phone: Start: 03-07-2025 End: 03-07-2025 Patient encounter procedure Jey Ramos MD -[facility] Work Phone: Start: 03-01-2025 End: 03-01-2025 Refill Idania Ricketts DO Work Phone: [facility] Comment on above: 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) Start: 02-20-2025 Non-patient / Non-visit Nuria Fermin LP N -[facility] Work Phone: Start: 02-13-2025 End: 02-13-2025 ambulatory Idania Petznick DO Work Phone: [facility] Work Phone: Start: 02-13-2025 End: 02-13-2025 Patient encounter procedure Idania Petznick DO Work Phone: Count Includes [facility] Work Phone: Start: 02-02-2025 End: 02-02-2025 Emergency department patient visit Delano Benavides [facility] Start: 02-02-2025 End: 02-02-2025 Emergency department patient visit Sherley Templeton MD Work Phone: [facility] Emergency Department Comment on above: Idiopathic periphera l neuropathy (Primary Dx); End stage renal disease (HCC); Hyperkalemia Start: 01-01-2025 End: 01-02-2025 Emergency department patient visit Idania Petznick DO Work Phone: [facility]-Emergency Room Work Phone: Start: 12-30-2024 End: 12-30-[address] [facility] Start: 12-29-2024 End: 12-29-2024 Emergency department patient visit Idania Petznick DO Work Phone: [facility]-Emergency Room Work Phone: Start: 12-27-2024 End: 12-27-2024 [facility] Start: 12-21-2024 ambulatory CHONG Marrero [facility] Start: 12-21-2024 ambulatory HEAVENLY BUENO [facility] Start: 12-12-2024 End: 12-12-2024 ambulatory [facility] Start: 12-12-2024 End: 12-12-2024 ambulatory [facility] Start: 12-12-2024 End: 12-12-2024 Encounter for other preprocedural examination [facility] Start: 12-06-2024 End: 12-06-2024 Emergency department patient visit [place] Maeve [facility] Start: 12-05-2024 End: 12-05-2024 Emergency department patient visit [facility] Start: 12-05-2024 End: 12-05-2024 Bamboo flowsheet [facility] Vandanaick DO Work Phone: [facility] Start: 12-05-2024 End: 12-05-2024 Bamboo flowsheet Idania Maeve Petznick DO Work Phone: [facility] Start: 12-05-2024 End: 12-05-2024 Office outpatient visit 25 minutes [facility] Work Phone: [facility] Comment on above: 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 (CMS/HCC) (Primary Dx); Type 2 diabetes mellitus with peripheral neuropathy (CMS/[facility]); Obstructive sleep apnea syndrome; Essential hypertension (CMS/[facility]); Peripheral vascular disease (CMS/HCC); End stage renal disease (CMS/HCC); Type 2 diabetes mellitus with foot ulcer, with long-term current use of insulin (CMS/HCC); Acquired hypothyroidism (CMS/HCC); 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, with long-term current use of insulin ([facility]); Class 3 severe obesity due to excess calories with serious comorbidity and body mass index (BMI) of 40.0 to 44.9 in adult; Chronic kidney disease with end stage renal disease on dialysis due to type 2 diabetes mellitus (CMS/HCC); Anxiety; Dependence on renal dialysis (CMS/HCC); Pure hypercholesterolemia (CMS/HCC); Long-term insulin use (CMS/HCC); Hx of amputation of lesser toe, left (HCC) (CMS/HCC) Start: 12-05-2024 End: 12-05-2024 ambulatory IDANIA RICKETTS Not Available Start: 11-27-2024 End: 11-28-2024 Emergency department patient visit Idania Ricketts DO Work Phone: [facility]-Emergency Room Work Phone: Start: 11-27-2024 End: 11-27-2024 Emergency department patient visit IDANIA Maeve [facility] Start: 11-27-2024 End: 11-27-2024 Emergency department patient visit [place] Maeve [facility] Start: 11-27-2024 End: 11-27-2024 Telephone encounter Idania Rciketts DO Work Phone: [facility] Comment on above: Med Refill Start: 11-23-2024 Encounter for other preprocedural examination [facility] Start: 11-23-2024 ambulatory [facility] Start: 11-07-2024 End: 11-07-2024 ambulatory [facility] Start: 10-31-2024 End: 10-31-2024 ambulatory [facility] Start: 10-29-2024 End: 10-30-2024 ambulatory Idania Ricketts Facility:[facility] Start: 10-29-2024 End: 10-30-2024 Evaluation and management of inpatient Idania Ricketts DO Work Phone: [facility] Work Phone: Start: 10-25-2024 End: 10-26-2024 Emergency department patient visit [place] Maeve [facility] Start: 10-17-2024 End: 10-17-2024 ambulatory [facility] Start: 10-17-2024 End: 10-17-2024 ambulatory [facility] Start: 10-13-2024 End: 10-13-2024 ambulatory IDANIA RICKETTS Facility:[facility] Start: 10-04-2024 End: 10-04-2024 Telephone encounter Idania Ricketts DO Work Phone: [facility] Comment on above: Referral Start: 10-03-2024 End: 10-03-2024 ambulatory GI MONDRAGON Not Available Start: 10-03-2024 End: 10-03-2024 Office outpatient visit 15 minutes Gi Mondragon DPM Work Phone: [facility] Comment on above: Neuropathy (Primary Dx); Ulcer of right heel and midfoot with fat layer exposed (CMS/HCC); Ulcer of right foot, limited to breakdown of skin (CMS/HCC); Type 2 diabetes mellitus with peripheral neuropathy (CMS/HCC); Chronic kidney disease due to diabetes mellitus (CMS/HCC) Start: 10-02-2024 End: 10-02-2024 Office outpatient visit 15 minutes Idania Ricketts DO Work Phone: [facility] Comment on above: Bilious vomiting wit h nausea (Primary Dx); Type 2 diabetes mellitus with peripheral neuropathy (CMS/HCC) Start: 10-02-2024 End: 10-02-2024 ambulatory IDANIA RICKETTS Not Available Start: 09-19-2024 End: 09-19-2024 Office outpatient visit 15 minutes Idania Ricketts DO Work Phone: [facility] Comment on above: Lymphedema (Primary Dx); End stage renal disease (CMS/HCC); Venous stasis dermatitis Start: 09-19-2024 End: 09-19-2024 Patient encounter procedure Gi Mondragon DPM Work Phone: [facility] Comment on above: Ulcer of right heel and midfoot with fat layer exposed (CMS/HCC) (Primary Dx); Ulcer of right foot, limited to breakdown of skin (CMS/HCC); Type 2 diabetes mellitus with peripheral neuropathy (CMS/HCC); Neuropathy Start: 09-19-2024 End: 09-19-2024 ambulatory IDANIA ROSSICK Not Available Start: 09-12-2024 End: 09-12-2024 Telephone encounter Idania Rossick DO Work Phone: [facility] Start: 09-12-2024 End: 09-12-2024 ambulatory [facility] Start: 09-05-2024 End: 09-05-2024 ambulatory [facility] Start: 09-04-2024 End: 09-04-2024 Office outpatient visit 15 minutes Idania Rossick DO Work Phone: [facility] Comment on above: Chronic venous insuf ficiency (Primary Dx); Lymphedema Start: 09-04-2024 End: 09-04-2024 ambulatory IDANIA ROSSICK Not Available Start: 09-01-2024 End: 09-01-2024 Telephone encounter Idania Rossick DO Work Phone: [facility] Start: 08-28-2024 End: 08-29-2024 Emergency department patient visit Idania Rossick DO Work Phone: [facility]-Emergency Room Work Phone: Start: 08-22-2024 End: 08-22-2024 ambulatory [facility] Start: 08-22-2024 End: 08-22-2024 ambulatory [facility] Start: 08-08-2024 End: 08-08-2024 ambulatory [facility] Start: 08-08-2024 ambulatory [facility] Start: 08-07-2024 End: 08-07-2024 Office outpatient visit 25 minutes Idania Rossick DO Work Phone: [facility] Comment on above: Obstructive sleep ap bo syndrome (Primary Dx); 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 (CMS/HCC); Type 2 diabetes mellitus with peripheral neuropathy (CMS/HCC); Essential hypertension (CMS/HCC); Peripheral vascular disease (CMS/HCC); End stage renal disease ([facility]); Acquired hypothyroidism ([facility]); Type 2 diabetes mellitus with ESRD (end-stage renal disease) ([facility]); 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, with long-term current use of insulin ([facility]); Chronic kidney disease with end stage renal disease on dialysis due to type 2 diabetes mellitus ([facility]); Anxiety; Dependence on renal dialysis ([facility]); Pure hypercholesterolemia ([facility]); Long-term insulin use ([facility]); Hx of amputation of lesser toe, left ([facility]) ([facility]); Class 3 severe obesity due to excess calories with serious comorbidity and body mass index (BMI) of 40.0 to 44.9 in adult ([facility]); Inguinal adenopathy Start: 08-07-2024 End: 08-07-2024 ambulatory IDANIA RICKETTS Not Available Start: 07-28-2024 End: 07-28-2024 ambulatory [facility] Start: 07-27-2024 End: 07-27-2024 ambulatory [facility] Start: 07-27-2024 End: 07-27-2024 Encounter for preprocedural cardiovascular examination [facility] Start: 07-25-2024 End: 07-25-2024 ambulatory [facility] Start: 07-18-2024 End: 07-18-2024 ambulatory [facility] Start: 07-11-2024 Encounter for prepro cedural cardiovascular examination [facility] Start: 07-11-2024 End: 07-11-2024 ambulatory [facility] Start: 07-11-2024 ambulatory [facility] Start: 06-29-2024 End: 06-29-2024 Bamboo flowsheet Gi Mondragon DPM Work Phone: [facility] Start: 06-29-2024 End: 06-29-2024 Bamboo flowsheet Gi Mondragon DPM Work Phone: [facility] Start: 06-29-2024 End: 06-29-2024 Patient encounter procedure Gi Mondragon DPM Work Phone: [facility] Comment on above: Ulcer of right heel and midfoot with fat layer exposed (CMS/HCC) (Primary Dx); Ulcer of right foot, limited to breakdown of skin (CMS/HCC); Type 2 diabetes mellitus with peripheral neuropathy (CMS/HCC); Neuropathy Start: 06-29-2024 End: 06-29-2024 ambulatory GI MONDRAGON Not Available Start: 06-22-2024 End: 06-22-2024 ambulatory [facility] Start: 06-20-2024 End: 06-20-[address] [facility] Start: 06-13-2024 End: 06-13-2024 ambulatory REFUGIO [facility] Start: 06-08-2024 End: 06-08-2024 Bamboo flowsheet Gi Mondragon DPM Work Phone: [facility] Start: 06-08-2024 End: 06-08-2024 Bamboo flowsheet Gi Mondragon DPM Work Phone: [facility] Start: 06-08-2024 End: 06-08-2024 Patient encounter procedure Gi Mondragon DPM Work Phone: [facility] Comment on above: Ulcer of right heel and midfoot with fat layer exposed (CMS/HCC) (Primary Dx); Type 2 diabetes mellitus with peripheral neuropathy (CMS/HCC); Neuropathy Start: 06-08-2024 End: 06-08-2024 ambulatory GI MONDRAGON Not Available Start: 05-30-2024 End: 05-31-2024 Telephone encounter Sophia Martini MA [facility] Start: 05-26-2024 End: 05-26-[address] [facility] Start: 05-23-2024 ambulatory PEDRO MILANKARI [facility] Start: 05-18-2024 End: 05-18-2024 Bamboo flowsheet Gi Mondragon DPM Work Phone: [facility] Start: 05-18-2024 End: 05-18-2024 Bamboo flowsheet Gi Mondragon DPM Work Phone: [facility] Start: 05-18-2024 End: 05-18-2024 Patient encounter procedure Gi Mondragon DPM Work Phone: [facility] Comment on above: Ulcer of right heel and midfoot with fat layer exposed (CMS/HCC) (Primary Dx); Neuropathy; Ulcer of right foot, limited to breakdown of skin (CMS/HCC); Type 2 diabetes mellitus with peripheral neuropathy (CMS/HCC) Start: 05-18-2024 End: 05-18-2024 ambulatory GI MONDRAGON Not Available Start: 05-16-2024 End: 05-16-2024 ambulatory IDANIA RICKETTS Not Available Start: 05-16-2024 End: 05-16-2024 Office outpatient visit 15 minutes Idania Ricketts DO Work Phone: [facility] Comment on above: Type 2 diabetes conrad itus with peripheral neuropathy (CMS/HCC) (Primary Dx); Anxiety Start: 05-15-2024 End: 05-15-2024 Emergency department patient visit DO Idania Ricketts Work Phone: [facility]-Emergency Room Work Phone: Start: 05-04-2024 End: 05-04-2024 Bamboo flowsheet Gi Mondragon DPM Work Phone: [facility] Start: 05-04-2024 End: 05-04-2024 Bamboo flowsheet Gi Mondragon DPM Work Phone: [facility] Start: 05-04-2024 End: 05-04-2024 Patient encounter procedure Gi Mondragon DPM Work Phone: [facility] Comment on above: Ulcer of right heel and midfoot with fat layer exposed ([facility]) (Primary Dx); Ulcer of right foot, limited to breakdown of skin ([facility]) Start: 05-04-2024 End: 05-04-2024 ambulatory GI MONDRAGON Not Available Start: 04-26-2024 End: 04-27-2024 Refill Anayeli Close [employer] [facility] Comment on above: 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 ([facility]) Start: 04-13-2024 End: 04-13-2024 ambulatory GI MONDRAGON Not Available Start: 03-30-2024 End: 03-30-2024 ambulatory GI MONDRAGON Not Available Start: 03-16-2024 End: 03-16-2024 ambulatory GI MONDRAGON Not Available Start: 02-29-2024 End: 02-29-2024 ambulatory GI Marlo MONDRAGON Not Available Start: 02-25-2024 End: 02-25-2024 ambulatory IDANIAKAVITA RICKETTS Not Available Start: 02-14-2024 End: 02-14-2024 ambulatory GI Marlo MONRDAGON Not Available Start: 02-07-2024 End: 02-07-2024 ambulatory GI Marlo MONDRAGON Not Available Start: 02-04-2024 End: 02-04-2024 Admission to same day surgery center DO Idania Petznick Work Phone: [facility] [place] Start: 02-04-2024 End: 02-04-2024 ambulatory DO Idania Petznick Work Phone: [facility] Work Phone: Start: 02-02-2024 End: 02-02-2024 ambulatory GI Marlo MONDRAGON Not Available Start: 01-24-2024 End: 01-24-2024 ambulatory GI H MONDRAGON Not Available Start: 2024 End: 2024 ambulatory GI H MONDRAGON Not Available Start: 01-03-2024 End: 01-03-2024 ambulatory DO Idania Petznick Work Phone: [facility] Work Phone: Start: 01-03-2024 End: 01-03-2024 Patient encounter procedure DO Idania Petznick Work Phone: Count Includes [facility] Vascular Surgery Work Phone: Start: 12-27-2023 End: 12-27-2023 ambulatory GI MONDRAGON Not Available Start: 12-24-2023 End: 12-24-2023 Admission to same day surgery center DO Idania Petznick Work Phone: [facility] [place] Start: 12-24-2023 End: 12-24-2023 ambulatory DO Idania Petznick Work Phone: [facility] Work Phone: Start: 12-21-2023 End: 12-21-2023 ambulatory GI MONDRAGON Not Available Start: 12-08-2023 End: 12-08-2023 ambulatory GI MONDRAGON Not Available Start: 12-06-2023 End: 12-06-2023 ambulatory DO Idania Petznick Work Phone: [facility] Work Phone: Start: 12-06-2023 End: 12-06-2023 Patient encounter procedure DO Idania Petznick Work Phone: Count Includes [facility] Vascular Surgery Work Phone: Start: 11-25-2023 End: 11-25-2023 Emergency department patient visit DO Idania Petznick Work Phone: [facility]-Emergency Room Work Phone: Start: 11-22-2023 End: 11-23-2023 Non-patient / Non-visit DO Idania Petznick Work Phone: Count Includes [facility] Infectious Disease Work Phone: Start: 11-21-2023 End: 11-23-2023 Non-patient / Non-visit DO Idania Petznick Work Phone: Count Includes [facility] Nephrology Work Phone: Start: 11-20-2023 End: 11-23-2023 Non-patient / Non-visit DO Idania Petznick Work Phone: Count Includes [facility] Physician [facility] Med OutPt Work Phone: Start: 11-20-2023 End: 11-23-2023 Evaluation and management of inpatient DO Idania Petznick Work Phone: [facility] [place] Med Surg Work Phone: Start: 11-15-2023 End: 12-21-2023 ambulatory DO Idania Petznick Work Phone: [facility] Work Phone: Start: 11-15-2023 End: 12-21-2023 Discharged Recurring DO Idania Petznick Work Phone: [facility]-Infusion Therapy - O/P Work Phone: Start: 11-15-2023 Registered Recurring DO Alliso n Petznick Work Phone: [facility]-Infusion Therapy - [facility]/P Work Phone: Start: 11-08-2023 End: 11-08-2023 Patient encounter procedure DO Idania Petznick Work Phone: Count Includes [facility]ician [facility] Vascular Surgery Work Phone: Start: 10-27-2023 End: 10-27-2023 Admission to same day surgery center DO Idania Petznick Work Phone: [facility] [place] Start: 10-27-2023 End: 10-27-2023 ambulatory DO Idania Petznick Work Phone: [facility] Work Phone: Start: 10-18-2023 External Result Encounter Flakito High DO Work Phone: [facility] External Department Unsolicited Start: 10-18-2023 External Result Encounter Flakito Smitha High DO Work Phone: [facility] External Department Unsolicited Start: 10-18-2023 End: 10-18-2023 ambulatory DO Idania Petznick Work Phone: [facility] Work Phone: Start: 10-18-2023 End: 10-18-2023 Patient encounter procedure DO Idania Petznick Work Phone: [facility] Work Phone: Start: 10-13-2023 Chart abstracting Flakito bah DO Work Phone: [facility] Start: 10-13-2023 End: 10-13-2023 Office outpatient visit 25 minutes Flkaito High DO Work Phone: [facility] Comment on above: Peritoneal dialysis catheter dysfunction, subsequent encounter ([facility]) (Primary Dx) Start: 10-07-2023 End: 10-07-2023 ambulatory Tondra Oralus Other [employer] Other Start: 10-07-2023 Telephone encounter Michelle Kennedy [facility] Start: 10-06-2023 Non-patient / Non-visit DO All kavita Petznick Work Phone: Count Includes [facility] Vascular Surgery Work Phone: Start: 10-04-2023 End: 10-04-2023 ambulatory Ramirez eJan Other [employer] Other Start: 10-04-2023 Office outpatient vi sit [address] [facility] Vascular Surgery Start: 10-04-2023 End: 10-04-2023 Patient encounter procedure DO Idania Petznick Work Phone: Count Includes [facility]- Start: 09-27-2023 End: 09-27-2023 ambulatory DO Idania Petznick Work Phone: [facility] Work Phone: Start: 09-27-2023 End: 09-27-2023 Patient encounter procedure DO Idania Petznick Work Phone: [facility] [place] Work Phone: Start: 09-25-2023 End: 09-26-2023 Emergency department patient visit DO Idania Petznick Work Phone: [facility] Work Phone: Start: 09-16-2023 End: 09-16-2023 Admission to same day surgery center DO Diania Petznick Work Phone: [facility] [place] Start: 09-16-2023 End: 09-16-2023 ambulatory DO Idania Petznick Work Phone: [facility] Work Phone: Start: 08-26-2023 End: 08-26-2023 ambulatory Rasheeda Fitt Other [employer] Other Start: 08-26-2023 Telephone encounter Rasheeda Byront [facility] Start: 08-10-2023 End: 08-10-2023 ambulatory Tondra Mapus Other [employer] Other Start: 08-10-2023 Telephone encounter Tondra Mapus [facility] Start: 08-09-2023 End: 08-09-2023 Emergency department patient visit DO Idania Petznick Work Phone: [facility] Work Phone: Start: 07-27-2023 End: 07-27-2023 ambulatory Tondra Mapus Other [employer] Other Start: 07-27-2023 Telephone encounter Tondra Mapus [facility] Start: 07-14-2023 End: 07-14-2023 ambulatory Tondra Mapus Other [employer] Other Start: 07-14-2023 Telephone encounter Tondra Mapus [facility] Start: 07-07-2023 End: 07-07-2023 ambulatory Tondra Mapus Other [employer] Other Start: 07-07-2023 Telephone encounter Tondra Mapus [facility] Start: 06-28-2023 End: 06-28-2023 ambulatory Tondra Mapus Other [employer] Other Start: 06-28-2023 Telephone encounter Tondra Mapus [facility] Start: 06-26-2023 End: 06-26-2023 ambulatory DO Idania Ricketts Work Phone: [facility] Work Phone: Start: 06-26-2023 End: 06-26-2023 Patient encounter procedure DO Idania Petznick Work Phone: [facility] [place] Work Phone: Start: 06-22-2023 End: 06-22-2023 ambulatory Tondra Mapus Other [employer] Other Start: 06-22-2023 Telephone encounter Tondra Mapus [facility] Start: 06-21-2023 End: 06-21-2023 ambulatory Tondra Mapus Other [employer] Other Start: 06-21-2023 Telephone encounter Tondra Mapus [facility] Start: 06-16-2023 Registered Recurring DO Alliso n Petznick Work Phone: [facility] Work Phone: Start: 06-16-2023 End: 06-16-2023 ambulatory Tondra Mapus Other [employer] Other Start: 06-16-2023 FQ visit new patient Michelle Kennedy [facility] Start: 03-11-2023 Office Services Sj P November and Other [facility] Start: 01-29-2023 Office Services Sj P November and Other [facility] Office Start: 12-18-2022 Office Services Sj P November and Other [facility] Office Start: 12-04-2022 (Dialysis T) Dialysi s Training Ada Moody [facility] Start: 12-04-2022 End: 12-04-2022 ambulatory Ada Moody Other [employer] Other Start: 11-20-2022 End: 11-20-2022 ambulatory DO Idania Petznick Work Phone: [facility] Work Phone: Start: 11-20-2022 End: 11-20-2022 Patient encounter procedure DO Idania Petznick Work Phone: [facility] [place] Work Phone: Start: 11-13-2022 Office Services Sj P November and Other [facility] Office Start: 11-04-2022 End: 11-07-2022 Evaluation and management of inpatient DO Idania Petznick Work Phone: [facility] [place] [facility] Work Phone: Start: 11-04-2022 End: 11-04-2022 ambulatory Ada Moody Other [employer] Other Start: 11-04-2022 Telephone encounter Ada Moody [facility] Start: 11-02-2022 End: 11-02-2022 ambulatory DO Idania Petznick Work Phone: [facility] Work Phone: Start: 11-02-2022 End: 11-02-2022 Patient encounter procedure DO Idaniakavita Ricketts Work Phone: [facility] [place] Work Phone: Start: 11-01-2022 End: 11-01-2022 Emergency department patient visit DO Idania Ricketts Work Phone: [facility] Work Phone: Start: 10-26-2022 Office Services Sj Singh March and Other [facility] Start: 10-10-2022 End: 10-10-2022 Emergency department patient visit DO Idania Ricketts Work Phone: [facility] Work Phone: Start: 10-09-2022 End: 10-10-2022 ambulatory Sj Francois DPM Facility:[facility] Start: 10-09-2022 Office Services Sj Singh November and Other [facility] Start: 09-22-2022 End: 09-23-2022 Emergency department patient visit DO Idania Ricketts Work Phone: [facility] Work Phone: Start: 08-14-2022 Office Services Sj Singh March and Other [facility] Office Start: 08-12-2022 End: 08-12-2022 ambulatory Ada Moody Other [employer] Other Start: 08-12-2022 Office outpatient vi sit [address] [facility] [place] Start: 08-12-2022 Telephone encounter Ada Moody [facility] Start: 08-03-2022 End: 08-03-2022 ambulatory DO Idania Petznick Work Phone: [facility] Work Phone: Start: 08-03-2022 End: 08-03-2022 Patient encounter procedure DO Idania Petznick Work Phone: [facility] Start: 07-28-2022 End: 07-29-2022 Emergency department patient visit DO Idania Petznick Work Phone: [facility] Start: 07-24-2022 Office Services Sj Stallworth Other [facility] Office Start: 07-17-2022 End: 07-18-2022 ambulatory Sj Francois DPM Facility:[facility] Start: 07-17-2022 Office outpatient ne w 30 minutes Sj Francois Other [facility] Office Start: 06-27-2022 End: 06-27-2022 ambulatory DO Idania Petznick Work Phone: [facility] Work Phone: Start: 06-27-2022 End: 06-27-2022 Patient encounter procedure DO Idania Petznick Work Phone: [facility] Start: 06-18-2022 Encounter for prepro cedural laboratory [facility] Start: 06-16-2022 End: 06-16-2022 ambulatory Ada Moody Other [employer] Other Start: 06-16-2022 Telephone encounter Ada Moody [facility] Start: 06-15-2022 End: 06-16-[address] IDANIA RICKETTS Facility:[facility] Start: 06-15-2022 End: 06-16-2022 Encounter for preprocedural laboratory examination DR IDANIA RICKETTS Facility:[facility] Start: 05-20-2022 End: 05-20-2022 ambulatory Ada Moody Other [employer] Other Start: 05-20-2022 Office outpatient vi sit 25 minutes Ada Moody [facility] [place] Start: 05-16-2022 End: 05-16-2022 Patient encounter procedure DO Idania Ricketts Work Phone: [facility] Start: 05-01-2022 End: 05-02-2022 ambulatory BERTINOMAYRA PIPERTRA Facility:[facility] Start: 03-12-2022 End: 03-12-2022 ambulatory Ada Moody Other [employer] Other Start: 03-12-2022 Office outpatient vi sit 25 minutes Ada Moody [facility] [place] Start: 03-06-2022 End: 03-07-2022 ambulatory KEVIN WILKES Facility:[facility] Start: 02-26-2022 End: 02-27-2022 ambulatory KEVIN WILKES Facility:[facility] Start: 02-25-2022 End: 02-25-2022 ambulatory Ada Moody Other [employer] Other Start: 02-25-2022 Telephone encounter Ada Moody [facility] Start: 02-20-2022 End: 02-20-2022 Patient encounter procedure DO Idania Ricketts Work Phone: [facility] Start: 02-19-2022 End: 02-20-2022 ambulatory KEVIN WILKES Facility:[facility] Start: 02-09-2022 End: 02-10-2022 ambulatory KEVIN WILKES Facility:[facility] Start: 01-27-2022 End: 01-28-[address] IDANIA RICKETTS Facility:[facility] Start: 01-21-2022 End: 01-21-2022 ambulatory KEVIN Lewis HIGHLHARPER Facility:[facility] Start: 12-31-2021 End: 01-01-2022 ambulatory KEVIN WILKES Facility:[facility] Start: 12-03-2021 End: 12-03-2021 ambulatory Ada Moody Other [employer] Other Start: 12-03-2021 Office outpatient vi sit 25 minutes Ada Moody [facility] [place] Procedures Date Procedure Procedure Detail Performing Clinician Start: 02-02-2025 End: 02-02-2025 Basic metabolic panel calcium total Sherley Templeton MD Work Phone: Start: 02-02-2025 Radex foot complete minimum 3 views Sherley Templeton MD Work Phone: Start: 01-01-2025 Viral nucleic acid assay Idania Petznick DO Work Phone: Start: 11-27-2024 Duplex scan of lower limb veins Idania Petznick DO Work Phone: Start: 10-29-2024 X-ray of right foot All kavita Petznick DO Work Phone: Start: 10-29-2024 Bacteria identified in Blood by Culture Idania Petznick DO Work Phone: Start: 08-28-2024 Duplex scan of lower limb veins Idania Petznick DO Work Phone: Start: 06-20-2024 Colonoscopy Gi Mondragon DPM Work Phone: Start: 02-04-2024 Debridement DO Idania Petznick Work Phone: Start: 12-24-2023 Debridement DO Idania Petznick Work Phone: Start: 12-06-2023 Ultrasonography of arteriovenous fistula DO Idania Petznick Work Phone: Start: 11-23-2023 MRI of right foot DO Al lison Petznick Work Phone: Start: 11-22-2023 Pulse volume recorde r pneumoplethysmography DO Idania Petznick Work Phone: Start: 11-21-2023 X-ray of right foot DO Idania Petznick Work Phone: Start: 11-21-2023 Urine culture DO Alliso n Petznick Work Phone: Start: 11-20-2023 Plain chest X-ray DO Al lison Petznick Work Phone: Start: 11-20-2023 Blood culture for ba cteria, including anaerobic screen DO Idania Petznick Work Phone: Start: 11-20-2023 Respiratory Panel (PCR) DO Idania Petznick Work Phone: Start: 10-27-2023 Removal of peritonea l dialysis catheter DO Idania Petznick Work Phone: Start: 10-25-2023 Debridement muscle & fascia 20 sq cm/< Sj P Alessandro Other Start: 10-18-2023 Basic metabolic pane l calcium total Flakito C Lafnikko DO Work Phone: Start: 09-27-2023 US angiography DO Allis on [employer] Work Phone: Start: 09-25-2023 Plain chest X-ray DO Al lison Petznick Work Phone: Start: 09-25-2023 SARS-CoV-2, Influenz a & RSV (PCR) DO Idania SimpleSiteznick Work Phone: Start: 09-16-2023 Plain chest X-ray DO Al lison Petznick Work Phone: Start: 09-16-2023 Fluoroscopic guidance D O Idania Flexion Work Phone: Start: 09-02-2023 Debridement muscle & fascia 20 sq cm/< Sj P Alessandro Other Start: 08-20-2023 Debridement muscle & fascia 20 sq cm/< Sj P Alessandro Other Start: 08-03-2023 Debridement muscle & fascia 20 sq cm/< Sj P Alessandro Other Start: 07-26-2023 Debridement muscle & fascia 20 sq cm/< Sj P Alessandro Other Start: 07-19-2023 Debridement muscle & fascia 20 sq cm/< Sj P Alessandro Other Start: 07-13-2023 Debridement muscle & fascia 20 sq cm/< Sj P Alessandro Other Start: 06-30-2023 Debridement muscle & fascia 20 sq cm/< Sj P Alessandro Other Start: 06-11-2023 Debridement muscle & fascia 20 sq cm/< Sj P Alessandro Other Start: 05-04-2023 Debridement muscle & fascia 20 sq cm/< Sj P Alessandro Other Start: 04-12-2023 Debridement muscle & fascia 20 sq cm/< Sj P Alessandro Other Start: 11-06-2022 Laparoscopic inserti on of peritoneal dialysis catheter DO Shout Work Phone: Start: 11-05-2022 SARS-CoV-2, Influenz a & RSV (PCR) DO Shout Work Phone: Start: 11-04-2022 Plain chest X-ray DO Al twtrland Work Phone: Start: 11-01-2022 Plain chest X-ray DO Al lison Flexion Work Phone: Start: 11-01-2022 Screening for occult blood in feces DO Shout Work Phone: Start: 10-09-2022 Duplex scan of lower limb veins Sj Alessandro Start: 09-25-2022 Debridement muscle & fascia 20 sq cm/< Sj P Alessandro Other Start: 09-03-2022 Colonoscopy Flakito bah DO Work Phone: Start: 08-14-2022 Foot destructive procedure Sj Alessandro Start: 08-14-2022 Procedure on wound Geronimo velasquez Alessandro Start: 07-24-2022 Evaluation AND/OR wen cummins - established patient Sj Alessandro Start: 07-23-2022 Docrev cur meds by [facility] Sj [facility] Start: 07-23-2022 Procedure on wound Geronimo velasquez Alessandro Start: 07-17-2022 Docrev cur meds by [facility] Sj [facility] Start: 07-17-2022 Procedure on wound Geronimo velasquez [facility] Start: 07-17-2022 Wound microscopy, cu lture and sensitivities jS [facility] Start: 04-07-2022 PSA screening BERTIN LANDERS Comment on above: Order Comment: only males 40 and older Performed By: #### [id number] #### [id number] [place] [id number], [facility] Plan of Treatment Date Care Activity Detail Author Start: 06-20-2034 Screening for malign ant neoplasm of colon [facility] Start: 09-03-2032 Screening for malign ant neoplasm of colon [facility] Start: 06-22-2025 Urine screening for protein Diabetes: Urine Protein Screening [facility] Start: 05-23-2025 Urine screening for protein Diabetes: Urine Protein Screening [facility] Start: 05-07-2025 Influenza vaccination Influenz a Vaccine (Season Ended) [facility] Start: 03-05-2025 Influenza vaccination Influenza Vacc ine (#1) [facility] Comment on above: Postponed from 05/07 (Supply/Drug Shortage) Start: 01-06-2025 Glaucoma screening Diabetes: R etinopathy Screening [facility] Start: 12-05-2024 End: 12-05-2024 Patient encounter procedure 12/05/2024 2:00 PM EDT Office Visit [facility] [address] [place] [address] Idania Ricketts DO [address] [place] [address] Arrived [facility] [address] Comment on above: Arrived Start: 11-27-2024 Duplex scan of lower limb veins US venous duplex LE RT [facility] Start: 11-27-2024 US Lower extremity v ein - right [facility] Start: 11-08-2024 [facility] Start: 11-07-2024 [facility] Start: 11-06-2024 End: 11-06-2024 Patient encounter procedure 11/06/2024 11:30 AM EST Office Visit [facility] [address] [place] [address] Idania Ricketts DO [address] [place] [address] [facility] [address] Start: 11-06-2024 [facility] Start: 11-05-2024 [facility] Start: 11-04-2024 [facility] Start: 11-03-2024 [facility] Start: 11-02-2024 [facility] Start: 11-01-2024 [facility] Start: 10-31-2024 [facility] Start: 10-30-2024 [facility] Start: 10-29-2024 [facility] Start: 10-29-2024 MRI of right foot wi th contrast MR foot RT wo/w con [facility] Start: 10-29-2024 Hospital admission [facility] Start: 10-29-2024 Patient referral to dietitian [facility] Start: 10-29-2024 Referral to infectio us diseases physician [facility] Start: 10-29-2024 Referral to deep well contractor [facility] Start: 10-29-2024 Referral to community support associate [facility] Start: 10-29-2024 [facility] Start: 10-29-2024 [facility] Start: 10-29-2024 Bacteria identified in Blood by Culture Blood Culture [facility] Start: 10-12-2024 End: 10-12-2024 Patient encounter procedure 10/12/2024 9:45 AM EST Office Visit [facility] [address] [place] [id number] Gi Mondragon DPM [address] [place] [address] [facility] Start: 10-11-2024 Hemoglobin A1c measurement Diabetes: Hemoglobin A1C [facility] Start: 10-03-2024 End: 10-03-2024 Patient encounter procedure 10/03/2024 9:30 AM EST Office Visit [facility] [address] [place] [address] Gi Mondragon, DPM [address] [place] [address] [facility] Start: 09-30-2024 Medicare Annual Well ness (AWV) Medicare Annual Wellness (AWV) [facility] Start: 09-12-2024 End: 09-12-2024 Patient encounter procedure 09/12/2024 9:30 AM EST Office Visit [facility] [address] [place] [address] Gi Mondragon, DPM [address] [place] [address] [facility] Start: 08-29-2024 End: 08-29-2024 Patient encounter procedure 08/29/2024 9:30 AM EST Office Visit [facility] [address] [place] [address] Gi Mondragon, DPM [address] [place] [address] [facility] Start: 08-08-2024 End: 08-08-2024 Patient encounter procedure 08/08/2024 9:30 AM EST Office Visit [facility] [address] [place] [address] Gi Mondragon, DPM [address] [place] [address] [facility] Start: 07-18-2024 End: 07-18-2024 Patient encounter procedure 07/18/2024 11:00 AM EST Office Visit [facility] [address] [place] [id number] Gi Mondragon DPM [address] [place] [address] [facility] Start: 06-30-2024 End: 06-30-2024 Patient encounter procedure [facility] Comment on above: Type 2 diabetes conrad itus with foot ulcer, with long-term current use of insulin ([facility]) Start: 06-29-2024 End: 06-29-2024 Patient encounter procedure [facility] Comment on above: Arrived Start: 06-08-2024 End: 06-08-2024 Patient encounter procedure [facility] Comment on above: Arrived Start: 05-27-2024 Hemoglobin A1c measurement Diabetes: Hemoglobin A1C [facility] Start: 05-18-2024 End: 05-18-2024 Patient encounter procedure [facility] Comment on above: Arrived Start: 05-07-2024 Influenza vaccination Influenza Vacc ine (#1) [facility] Start: 05-04-2024 End: 05-04-2024 Patient encounter procedure [facility] Comment on above: Arrived Start: 04-27-2024 Urine screening for protein Diabetes: Urine Protein Screening [facility] Start: 02-04-2024 [facility] Start: 12-30-2023 End: 12-30-2023 Patient encounter procedure 12/30/2023 1:15 PM EDT Office Visit [facility] [address] [place] [address] Idania Ricketts DO [address] [place] [address] [facility] Start: 12-24-2023 [facility] Start: 12-18-2023 Glaucoma screening Diabetes: R etinopathy Screening [facility] Start: 12-06-2023 Ultrasonography of arteriovenous fistula US AV Fistula [facility] Start: 12-06-2023 US AV fistula [facility] Start: 11-25-2023 [facility] Start: 11-24-2023 [facility] Start: 11-23-2023 End: 11-23-2023 [facility] Start: 11-22-2023 [facility] Start: 11-21-2023 Referral to infectio us diseases physician [facility] Start: 11-21-2023 Referral to community support associate [facility] Start: 11-21-2023 [facility] Start: 11-20-2023 Hospital admission [facility] Start: 11-20-2023 Referral to deep well contractor [facility] Start: 11-20-2023 [facility] Start: 11-20-2023 Plain chest X-ray XR chest 2V* [facility] Start: 11-20-2023 XR Chest 2 Views [facility] Start: 11-20-2023 [facility] Start: 11-20-2023 Bacteria identified in Blood by Culture Blood Culture [facility] Start: 11-20-2023 Blood culture for bacteria, including anaerobic screen Blood Culture [facility] Start: 11-20-2023 Extraction of Right Foot Skin, External Approach Extraction of Right Foot Skin, External Approach [facility] Start: 11-20-2023 Performance of Urina ry Filtration, Intermittent, Less than 6 Hours Per Day Performance of Urinary Filtration, Intermittent, Less than 6 Hours Per Day [facility] Start: 11-10-2023 End: 11-10-2023 Patient encounter procedure 11/10/2023 9:30 AM EST [facility] [address] [place] [address] Flakito High, DO [address] [place] [address] [facility] Start: 11-01-2023 End: 11-01-2023 Patient encounter procedure 11/01/2023 12:15 PM EST Procedure Visit [facility] Flakito High, DO [address] [place] [address] [facility] Start: 10-27-2023 [facility] Start: 10-13-2023 End: 10-13-2023 Patient encounter procedure 10/13/2023 11:15 AM EST [facility] [address] [place] [phone] Flakito High DO [address] [place] [address] [facility] Start: 10-06-2023 [facility] Start: 10-06-2023 [facility] Start: 09-27-2023 US angiography US map hemodia l access SLIM [facility] Start: 09-27-2023 US Unspecified body region [facility] Start: 09-25-2023 Plain chest X-ray XR chest 1V portab le [facility] Start: 09-25-2023 XR Chest Single view Fi [facility] Start: 09-16-2023 [facility] Start: 09-16-2023 [facility] Start: 07-28-2023 Hemoglobin A1c measurement Diabetes: Hemoglobin A1C [facility] Start: 05-07-2023 Influenza vaccination Influenza Vacc ine (#1) [facility] Start: 03-11-2023 Debridement open wou nd 20 sq cm/< Active debridement of wound 20 square centimeters or less [facility] Start: 11-20-2022 Hepatitis B core ant ibody measurement [facility] Start: 11-20-2022 [facility] Start: 11-08-2022 Blood chemistry [facility] Start: 11-08-2022 [facility] Start: 11-07-2022 Blood chemistry [facility] Start: 11-07-2022 End: 11-07-2022 [facility] Start: 11-06-2022 Blood chemistry [facility] Start: 11-06-2022 [facility] Start: 11-05-2022 Blood chemistry [facility] Start: 11-05-2022 [facility] Start: 11-04-2022 Hospital admission [facility] Start: 11-04-2022 Referral to deep well contractor [facility] Start: 11-04-2022 [facility] Start: 11-04-2022 Insertion of Infusio n Device into Peritoneal Cavity, Percutaneous Endoscopic Approach Insertion of Infusion Device into Peritoneal Cavity, Percutaneous Endoscopic Approach [facility] Start: 11-01-2022 [facility] Start: 11-01-2022 Plain chest X-ray XR chest 2V* [facility] Start: 11-01-2022 XR Chest 2 Views [facility] Start: 10-09-2022 Dup-scan xtr veins unilateral/limited study [facility] Start: 07-17-2022 Cul bact xcpt urine blood/stool aerobic isol Wound culture and sensitivity [facility] Start: 05-19-2022 Urine screening for protein Diabetes: Urine Protein Screening [facility] Start: 1970 Screening for malign ant neoplasm of colon [facility] Anion gap measurement [facility] aPTT in Platelet poo r plasma by Coagulation assay [facility] Basophils [#/volume] in Blood by Automated count [facility] Basophils/100 leukoc ytes in Blood by Automated count [facility] CBC W Auto Different ial panel - Blood CBC and differential Lab Routine Bilious vomiting with nausea Ordered: 10/02/2024 [facility] Comment on above: Ordered: 10/02/2024 Comprehensive metabo lic 2000 panel - Serum or Plasma Comprehensive metabolic panel Lab Routine Bilious vomiting with nausea Ordered: 10/02/2024 [facility] Work Phone: Comment on above: Ordered: 10/02/2024 Eosinophils/100 leukocytes in Blood by Automated count [facility] Erythrocyte distribu tion width [Ratio] by Automated count [facility] Erythrocytes [#/volu me] in Blood [facility] Glucose measurement estimated from glycated hemoglobin [facility] Hematocrit [Volume Fraction] of Blood [facility] Hemoglobin [Mass/vol ume] in Blood [facility] Hemoglobin A1c/Hemoglobin.total in Blood [facility] INR in Platelet poor plasma by Coagulation assay [facility] Insulin C-peptide measurement [facility] Leukocytes [#/volume ] corrected for nucleated erythrocytes in Blood by Automated coun [facility] Leukocytes [#/volume ] in Blood [facility] Lymphocytes [#/volum e] in Blood by Automated count [facility] Lymphocytes/100 leukocytes in Blood by Automated count [facility] MCH [Entitic mass] b y Automated count [facility] MCHC [Mass/volume] b y Automated count [facility] MCV [Entitic volume] by Automated count [facility] Monocytes [#/volume] in Blood by Automated count [facility] Monocytes/100 leukoc ytes in Blood by Automated count [facility] Neutrophils [#/volum e] in Blood by Automated count [facility] Neutrophils/100 leukocytes in Blood by Automated count [facility] Nucleated erythrocyt es [Presence] in Blood by Automated count [facility] Patient Education [facility] Work Phone: Patient referral [facility] Work Phone: Platelet mean volume [Entitic volume] in Blood by Automated count [facility] Platelets [#/volume] in Blood [facility] Prothrombin time (PT) [facility] Renal function 2000 panel - Serum or Plasma [facility] End: 02-02-2025 SPECIMEN REJECTION [facility] Comment on above: Once for 1 Occurrenc es starting 02/02/2025 until 02/02/2025 Thyrotropin [Units/volume] in Serum or Plasma TSH Lab Routine Bilious vomiting with nausea Ordered: 10/02/2024 [facility] Comment on above: Ordered: 10/02/2024 US AV fistula [facility] Immunizations Immunization Date Immunization Notes Care Provider Fa cility 11-13-2022 zoster vaccine recombinant Flakito High DO Work Phone: [facility] 11-05-2022 influenza, injectabl e, quadrivalent, preservative free DO Idania Ricketts Work Phone: [facility] 11-05-2022 influenza virus vaccine, unspecified formulation Flakito High DO Work Phone: [facility] 08-12-2021 COVID-19 Ad26.COV2.S (Billei) DO Idania Petznick Work Phone: [facility] 01-23-2021 COVID-19 Ad26.COV2.S (Billie) DO Idania Petznick Work Phone: [facility] 06-18-2019 influenza, high dose seasonal, preservative-free Flakito Laffay DO Work Phone: [facility] 06-18-2019 influenza, injectabl e, quadrivalent, preservative free DO Idania Petznick Work Phone: [facility] 06-29-2014 seasonal influenza, intradermal, preservative free Flakito Laffay DO Work Phone: [facility] 06-26-2013 seasonal influenza, intradermal, preservative free Flakito Laffay DO Work Phone: [facility] Payers Date Payer Category Payer Medicare [id number] 2023 Medicare (Managed Care) 1.2. [id number] 2023 Private Health Insurance [id number] 2023 Medicare [id number] 2023 Unknown [id number] 2.16. 840.1.242938.3.441 2023 Medicaid [id number]. [id number] 2023 Medicaid [id number] 2. 16.840.1.336427.3.441 2022 Unknown 1971 Unknown [id number] 2.16.8 40.1.127119.3.579.2.647 1971 Unknown [id number] 2.16. 840.1.179142.3.579.2.196 1971 Unknown [id number] 2.16. 840.1.882477.3.579.2.196 1971 Unknown [id number] 2.16.84 0.1.394421.3.579.2.593 1971 Unknown [id number] 2.16.84 0.1.374178.3.579.2.593 1971 Unknown [id number] 2.16.84 0.1.392034.3.579.2.593 1971 Unknown [id number] 2.16.84 0.1.973933.3.579.2.593 1971 Unknown [id number] 2.16.84 0.1.278838.3.579.2.593 1971 Unknown [id number] 2.16.84 0.1.067842.3.579.2.593 1971 Unknown [id number] 2.16.84 0.1.871051.3.579.2.593 1971 Unknown [id number] 2.16.8 40.1.540056.3.579.2.718 1971 Unknown [id number] 2.16.84 0.1.585125.3.579.2.1259 1971 Unknown [id number] 2.16.84 0.1.913469.3.579.2.125 1971 Unknown [id number] 2.16.84 0.1.328522.3.579.2.1259 1971 Unknown [id number] 2.16.84 0.1.166563.3.579.2.125 1971 Unknown [id number] 2.16.84 0.1.753749.3.579.2.1259 1971 Unknown [id number] 2.16.84 0.1.021999.3.579.2.1259 1971 Unknown [id number] 2.16.84 0.1.322271.3.579.2.1258 1971 Unknown [id number] 2.16.84 0.1.871251.3.579.2.1258 1971 Unknown [id number] 2.16.84 0.1.421853.3.579.2.1258 1971 Unknown [id number] 2.16.84 0.1.787958.3.579.2.1258 1971 Unknown [id number] 2.16.84 0.1.159182.3.579.2.1258 1971 Unknown [id number] 2.16.84 0.1.827291.3.579.2.1258 1971 Unknown [id number] 2.16.84 0.1.721916.3.579.2.1258 1971 Unknown [id number] 2.16.84 0.1.850323.3.579.2.1258 1971 Unknown [id number] 2.16.84 0.1.134930.3.579.2.1258 1971 Unknown [id number] 2.16.84 0.1.689123.3.579.2.1258 1971 Unknown [id number] 2.16.84 0.1.297903.3.579.2.1258 1971 Unknown [id number] 2.16.84 0.1.894865.3.579.2.1258 1971 Unknown [id number] 2.16.84 0.1.070769.3.579.2.1258 1971 Unknown [id number] 2.16.84 0.1.204139.3.579.2.1258 1971 Unknown [id number] 2.16.84 0.1.931319.3.579.2.1258 1971 Unknown [id number] 2.16.84 0.1.454503.3.579.2.1258 1971 Unknown [id number] 2.16.84 0.1.544586.3.579.2.1259 1971 Unknown [id number] 2.16.84 0.1.734012.3.579.2.9 1971 Unknown [id number] 2.16.84 0.1.801648.3.579.2.9 1971 Unknown [id number] 2.16.84 0.1.607619.3.579.2.1258 1971 Unknown [id number] 2.16. 840.1.407652.3.579.2.1285 1971 Unknown [id number] 2.16. 840.1.615561.3.579.2.1285 1971 Unknown [id number] 2.16. 840.1.194321.3.579.2.1285 1971 Unknown [id number] 2.16. 840.1.741688.3.579.2.1285 1971 Unknown [id number] 2.16. 840.1.576553.3.579.2.1285 1971 Unknown [id number] 2.16. 840.1.164796.3.579.2.1285 1971 Unknown [id number] 2.16. 840.1.835622.3.579.2.1285 1971 Unknown [id number] 2.16.8 40.1.295025.3.579.2.173 1971 Unknown [id number] 2.16.8 40.1.174295.3.579.2.727 1959 Self-pay [id number] 1959 Unknown [id number] 2. 16.840.1.451938.19 Medicare [id number] Medicare [id number] 2.1 6.840.1.919184.19 Unknown [id number] Unknown [id number] 2.16.84 0.1.535261.3.579.2.593 Unknown [id number] 2.16.8 40.1.757745.3.579.2.531 Unknown [id number] 2.16.8 40.1.448821.3.579.2.531 Unknown [id number] 2.16.8 40.1.228611.3.579.2.531 Unknown [id number] 2.16.8 40.1.974037.3.579.2.531 Unknown [id number] 2.16.8 40.1.985623.3.579.2.531 Unknown [id number] 2.16.8 40.1.247111.3.579.2.531 Unknown [id number] 2.16.8 40.1.068552.3.579.2.531 Social History Date Type Detail Facility Unknown if ever smoked [facility] [employer] Other Start: 09-30-2023 End: 12-05-2024 Sex Assigned At [facility] [employer] Other Start: 09-11-2021 End: 03-11-2025 Tobacco smoking status [facility] Never smoked tobacco (finding) [facility] Start: 1970 Sex Assigned At Male [facility] Start: 09-23-2022 Tobacco smoking status [facility] Smoker (finding) [facility] Start: 03-02-2023 End: 02-02-2025 Tobacco use and exposure Smokeless tobacco non-user [facility] Start: 10-13-2023 End: 12-05-2024 Alcohol intake Lifetime non-drinker (finding) [facility] Start: 09-30-2023 End: 12-05-2024 History of Social function [facility] How often to you hav e a drink containing alcohol? Never [facility] How many standard dr inks containing alcohol do you have on a typical day? Patient does not drink [facility] Start: 10-13-2023 Alcohol Comment caffeine: more than 4 cups per day coffee [facility] Start: 1970 Sex Assigned At Not on file [facility] Start: 10-30-2024 End: 02-13-2025 Sex Male (finding) [facility] Do you belong to any clubs or organizations such as anabaptism groups, unions, fraternal or athletic groups, or school groups? Yes [facility] Are you now , , , , never or living with a partner? [facility] How hard is it for y ou to pay for the very basics like food, housing, medical care, and heating Somewhat hard [facility] Do you feel stress - tense, restless, nervous, or anxious, or unable to sleep at night because your mind is troubled all the time - these days [OSQ] To some extent [facility] (I/We) worried wheth er (my/our) food would run out before (I/we) got money to buy more. Never true [facility] At any time in the p ast 12 months, were you homeless or living in [facility] [including now]? No [facility] Tobacco smoking status [facility] Medical Equipment Procedure Code Equipment Code Equipment Origin al Text Equipment Identifier Dates Wound debridement Collagen wound matrix dressing [id number] FDA Start: 12-24-2023 Wound debridement Collagen wound matrix dressing ()[id number] FDA Start: 02-04-2024 Wound debridement Collagen wound matrix dressing ()[id number] FDA Start: 02-04-2024 Insertion, catheter, dialysis, peritoneal, laparoscopic Peritoneal dialysis catheter, chronic ()[id number] FDA Start: 11-06-2022 Fluoroscopic guidance for insertion of tunnelled dialysis catheter Double-lumen haemodialysis catheter, implantable +[id number]$$ [id number] FDA Start: 09-16-2023 Goals Date Patient Goal Desired Activity /State Functional Status Date Assessment Result Facility 11-23-2023 Functional status Patient at Baseline [facility] Work Phone: 11-07-2022 Functional status Patient at Baseline [facility] Work Phone: Mental Status Date Assessment Result Facility 11-23-2023 Cognitive function Cognitive Sta tus Patient at Baseline [facility] Work Phone: 11-07-2022 Cognitive function Cognitive Sta tus Patient at Baseline [facility] Work Phone: Clinical Notes 08-21-2021 to 02-13-2025 Note Date & Type Note Facility 02-13-2025 Evaluation note Diagnosis Onset Date Resolution Diabetic peripheral neuropathy acute February 13, 2025 8:20am Lumbar radiculopathy acute February 13, 2025 8:20am Other chronic pain acute February 042024 8:20am Lumbar radiculopathy acute March 07, 2025 3:40pm Other chronic pain acute March 072024 3:40pm [facility] Work Phone: 1(345) 559-372505-30-2025 Hospital Discharge instructions Patient Education 02/02/2025 18:32:46 Peripheral Neuropathy Peripheral Neuropathy Peripheral neuropathy is a type of nerve damage. It affects nerves that carry signals between the spinal cord and the arms, legs, and the rest of the body (peripheral nerves). It does not affect nerves in the spinal cord or brain. In peripheral neuropathy, one nerve or a group of nerves may be damaged. Peripheral neuropathy is a broad category that includes many specific nerve disorders, like diabetic neuropathy, hereditary neuropathy, and carpal tunnel syndrome. What are the causes? This condition may be caused by: Certain diseases, such as: ?Diabetes. This is the most common cause of peripheral neuropathy. ?Autoimmune diseases, such as rheumatoid arthritis and systemic lupus erythematosus. ?Nerve diseases that are passed from parent to child (inherited). ?Kidney disease. ?Thyroid disease. Other causes may include: ?Nerve injury. ?Pressure or stress on a nerve that lasts a long time. ?Lack (deficiency) of B vitamins. This can result from alcoholism, poor diet, or a restricted diet. ?Infections. ?Some medicines, such as cancer medicines (chemotherapy). ?Poisonous (toxic) substances, such as lead and mercury. ?Too little blood flowing to the legs. In some cases, the cause of this condition is not known. What are the signs or symptoms? Symptoms of this condition depend on which of your nerves is damaged. Symptoms in the legs, hands, and arms can include: ?Loss of feeling (numbness) in the feet, hands, or both. ?Tingling in the feet, hands, or both. ?Burning pain. ?Very sensitive skin. ?Weakness. ?Not being able to move a part of the body (paralysis). ?Clumsiness or poor coordination. ?Muscle twitching. ?Loss of balance. Symptoms in other parts of the body can include: ?Not being able to control your bladder. ?Feeling dizzy. ?Sexual problems. How is this diagnosed? Diagnosing and finding the cause of peripheral neuropathy can be difficult. Your health care provider will take your medical history and do a physical exam. A neurological exam will also be done. This involves checking things that are affected by your brain, spinal cord, and nerves (nervous system). For example, your health care provider will check your reflexes, how you move, and what you can feel. You may have other tests, such as: Blood tests. Electromyogram (EMG) and nerve conduction tests. These tests check nerve function and how well the nerves are controlling the muscles. Imaging tests, such as a CT scan or MRI, to rule out other causes of your symptoms. Removing a small piece of nerve to be examined in a lab (nerve biopsy). Removing and examining a small amount of the fluid that surrounds the brain and spinal cord (lumbarpuncture). How is this treated? Treatment for this condition may involve: Treating the underlying cause of the neuropathy, such as diabetes, kidney disease, or vitamin deficiencies. Stopping medicines that can cause neuropathy, such as chemotherapy. Medicine to help relieve pain. Medicines may include: ?Prescription or toft-pit-mtclbnh pain medicine. ?Anti-seizure medicine. ?Antidepressants. ?Pain-relieving patches that are applied to painful areas of skin. Surgery to relieve pressure on a nerve or to destroy a nerve that is causing pain. Physical therapy to help improve movement and balance. Devices to help you move around (assistive devices). Follow these instructions at home: Medicines Take wkfu-sxu-qklzsqj and prescription medicines only as told by your health care provider. Do not take any other medicines without first asking your health care provider. Ask your health care provider if the medicine prescribed to you requires you to avoid driving or using machinery. Lifestyle Do not use any products that contain nicotine or tobacco. These products include cigarettes, chewing tobacco, and vaping devices, such as e-cigarettes. Smoking keeps blood from reaching damaged nerves. If you need help quitting, ask your health care provider. Avoid or limit alcohol. Too much alcohol can cause a vitamin B deficiency, and vitamin B is needed for healthy nerves. Eat a healthy diet. This includes: ?Eating foods that are high in fiber, such as beans, whole grains, and fresh fruits and vegetables. ?Limiting foods that are high in fat and processed sugars, such as fried or sweet foods. General instructions If you have diabetes, work closely with your health care provider to keep your blood sugar under control. If you have numbness in your feet: ?Check every day for signs of injury or infection. Watch for redness, warmth, and swelling. ?Wear padded socks and comfortable shoes. These help protect your feet. Develop a good support system. Living with peripheral neuropathy can be stressful. Consider talkingwith a mental health specialist or joining a support group. Use assistive devices and attend physical therapy as told by your health care provider. This may include using a walker or a cane. Keep all follow-up visits. This is important. Where to find more information National [place] of Neurological Disorders: www.ninds.nih.gov Contact a health care provider if: You have new signs or symptoms of peripheral neuropathy. You are struggling emotionally from dealing with peripheral neuropathy. Your pain is not well controlled. Get help right away if: You have an injury or infection that is not healing normally. You develop new weakness in an arm or leg. You have fallen or do so frequently. Summary Peripheral neuropathy is when the nerves in the arms or legs are damaged, resulting in numbness, weakness, or pain. There are many causes of peripheral neuropathy, including diabetes, pinched nerves, vitamin deficiencies, autoimmune disease, and hereditary conditions. Diagnosing and finding the cause of peripheral neuropathy can be difficult. Your health care provider will take your medical history, do a physical exam, and do tests, including blood tests and nervefunction tests. Treatment involves treating the underlying cause of the neuropathy and taking medicines to help control pain. Physical therapy and assistive devices may also help. This information is not intended to replace advice given to you by your health care provider. Make sure you discuss any questions you have with your health care provider. Document Revised: 04/28/2022 Document Reviewed: 04/28/2022 [employer] Patient Education 2023 [employer]. 02/02/2025 18:32:46 Acute Pain, Adult Acute Pain, Adult Acute pain is a type of sudden pain that may last for just a few days or for as long as three months. It is often related to an illness, injury, or a medical procedure. Acute pain may be mild, moderate, or severe. Pain can make it hard for you to do your daily activities. It can cause anxiety and lead to other problems if it is not treated. Treatment may not take all the pain away, but it may lessen the pain so you can move around and tolerate it. Pain is best treated with medicines and other therapies such as distraction, meditation, oils from plants (aromatherapy), heat, and ice. Treatment depends on the cause of the pain and how severe it is. Acute pain usually goes away once your injury has healed or you are no longer ill. Follow these instructions at home: Medicines Take wbph-gus-wabnlhg and prescription medicines only as told by your health care provider. Take the lowest dose of medicine for the shortest amount of time needed to relieve the pain. If you are taking prescription pain medicine: ?Do not stop taking the medicine suddenly. Talk to your health care provider about how and when to stop taking prescription medicine. ?Do not take more pills than told by your health care provider even if your pain is severe. ?Do not take other arzr-jhf-vpbtndg pain medicines in addition to prescription pain medicine unlesstold by your health care provider. ?Keep your medicine in a safe place, away from children or anyone who could use it in a way that itwas not prescribed. ?Ask your health care provider if the medicine prescribed to you requires you to avoid driving or using machinery. Managing pain, stiffness, and swelling If told, put ice on the affected area. ?Put ice in a plastic bag. ?Place a towel between your skin and the bag. ?Leave the ice on for 20 minutes, 2 3 times a day. If told, apply heat to the affected area as often as told by your health care provider. Use the heat source that your health care provider recommends, such as a moist heat pack or a heating pad. ?Place a towel between your skin and the heat source. ?Leave the heat on for 20 30 minutes. If your skin turns bright red, remove the ice or heat right away to prevent skin damage. The risk of damage is higher if you cannot feel pain, heat, or cold. Managing constipation Your medicines may cause constipation. To prevent or treat constipation, you may need to: Drink enough fluid to keep your urine pale yellow. Take zjah-tpq-glynemu or prescription medicines. Eat foods that are high in fiber, such as beans, whole grains, and fresh fruits and vegetables. Limit foods that are high in fat and processed sugars, such as fried or sweet foods. Activity Rest as told by your health care provider. Return to your normal activities as told by your health care provider. Ask your health care provider what activities are safe for you. Ask your health care provider if doing physical therapy exercises to improve movement and strength can help you manage your pain. General instructions Check your pain level as told by your health care provider. Ask your health care provider if distraction, relaxation, or aromatherapy can help you manage your pain. Keep all follow-up visits. Your health care provider will monitor your pain level. Contact a health care provider if: Your pain is not controlled by medicine. Your pain does not improve or gets worse. You have side effects from pain medicines. Get help right away if: You have severe pain. You have trouble breathing. You faint, or another person sees you faint. You have chest pain or pressure that lasts for more than a few minutes, or if you have other symptoms along with chest pain, including: ?Pain or discomfort in one or both arms, your back, neck, jaw, or stomach. ?Shortness of breath. ?A cold sweat. ?Nausea. ?Feeling light-headed. These symptoms may be an emergency. Get help right away. Call 911. Do not wait to see if the symptoms will go away. Do not drive yourself to the hospital. This information is not intended to replace advice given to you by your health care provider. Make sure you discuss any questions you have with your health care provider. Document Revised: 03/17/2023 Document Reviewed: 03/17/2023 [employer] Patient Education 2023 [employer]. 02/02/2025 18:32:46 Neuropathic Pain Neuropathic Pain Neuropathic pain is pain caused by damage to the nerves that are responsible for certain sensationsin your body (sensory nerves). Neuropathic pain can make you more sensitive to pain. Even a minor sensation can feel very painful.This is usually a long-term (chronic) condition that can be difficult to treat. The type of pain differs from person to person. It may: Start suddenly (acute), or it may develop slowly and become chronic. Come and go as damaged nerves heal, or it may stay at the same level for years. Cause emotional distress, loss of sleep, and a lower quality of life. What are the causes? The most common cause of this condition is diabetes. Many other diseases and conditions can also cause neuropathic pain. Causes of neuropathic pain can be classified as: Toxic. This is caused by medicines and chemicals. The most common causes of toxic neuropathic pain is damage from medicines that kill cancer cells (chemotherapy) or alcohol abuse. Metabolic. This can be caused by: ?Diabetes. ?Lack of vitamins like B12. Traumatic. Any injury that cuts, crushes, or stretches a nerve can cause damage and pain. Compression-related. If a sensory nerve gets trapped or compressed for a long period of time, the blood supply to the nerve can be cut off. Vascular. Many blood vessel diseases can cause neuropathic pain by decreasing blood supply and oxygen to nerves. Autoimmune. This type of pain results from diseases in which the body's defense system (immune system) mistakenly attacks sensory nerves. Examples of autoimmune diseases that can cause neuropathic pain include lupus and multiple sclerosis. Infectious. Many types of viral infections can damage sensory nerves and cause pain. Shingles infection is a common cause of this type of pain. Inherited. Neuropathic pain can be a symptom of many diseases that are passed down through families(genetic). What increases the risk? You are more likely to develop this condition if: You have diabetes. You smoke. You drink too much alcohol. You are taking certain medicines, including chemotherapy or medicines that treat immune system disorders. What are the signs or symptoms? The main symptom is pain. Neuropathic pain is often described as: Burning. Shock-like. Stinging. Hot or cold. Itching. How is this diagnosed? No single test can diagnose neuropathic pain. It is diagnosed based on: A physical exam and your symptoms. Your health care provider will ask you about your pain. You may be asked to use a pain scale to describe how bad your pain is. Tests. These may be done to see if you have a cause and location of any nerve damage. They include: ?Nerve conduction studies and electromyography to test how well nerve signals travel through your nerves and muscles (electrodiagnostic testing). ?Skin biopsy to evaluate for small fiber neuropathy. Imaging studies, such as: ?X-rays. ?CT scan. ?MRI. How is this treated? Treatment for neuropathic pain may change consultant time. You may need to try different treatment options or a combination of treatments. Some options include: Treating the underlying cause of the neuropathy, such as diabetes, kidney disease, or vitamin deficiencies. Stopping medicines that can cause neuropathy, such as chemotherapy. Medicine to relieve pain. Medicines may include: ?Prescription or dzmh-iqh-avqotna pain medicine. ?Anti-seizure medicine. ?Antidepressant medicines. ?Pain-relieving patches or creams that are applied to painful areas of skin. ?A medicine to numb the area (local anesthetic), which can be injected as a nerve block. Transcutaneous nerve stimulation. This uses electrical currents to block painful nerve signals. Thetreatment is painless. Alternative treatments, such as: ?Acupuncture. ?Meditation. ?Massage. ?Occupational or physical therapy. ?Pain management programs. ?Counseling. Follow these instructions at home: Medicines Take xiry-cpc-gwsfrzq and prescription medicines only as told by your health care provider. Ask your health care provider if the medicine prescribed to you: ?Requires you to avoid driving or using machinery. ?Can cause constipation. You may need to take these actions to prevent or treat constipation: ?Drink enough fluid to keep your urine pale yellow. ?Take jcho-ile-ykebfit or prescription medicines. ?Eat foods that are high in fiber, such as beans, whole grains, and fresh fruits and vegetables. ?Limit foods that are high in fat and processed sugars, such as fried or sweet foods. Lifestyle Have a good support system at home. Consider joining a chronic pain support group. Do not use any products that contain nicotine or tobacco. These products include cigarettes, chewing tobacco, and vaping devices, such as e-cigarettes. If you need help quitting, ask your health careprovider. Do not drink alcohol. General instructions Learn as much as you can about your condition. Work closely with all your health care providers to find the treatment plan that works best for you. Ask your health care provider what activities are safe for you. Keep all follow-up visits. This is important. Contact a health care provider if: Your pain treatments are not working. You are having side effects from your medicines. You are struggling with tiredness (fatigue), mood changes, depression, or anxiety. Get help right away if: You have thoughts of hurting yourself. Get help right away if you feel like you may hurt yourself or others, or have thoughts about takingyour own life. Go to your nearest emergency room or: Call 911. Call the National Suicide Prevention Lifeline at or 078. This is open 24 hours a day. Text the Crisis Text Line at 629085. Summary Neuropathic pain is pain caused by damage to the nerves that are responsible for certain sensationsin your body (sensory nerves). Neuropathic pain may come and go as damaged nerves heal, or it may stay at the same level for years. Neuropathic pain is usually a long-term condition that can be difficult to treat. Consider joining a chronic pain support group. This information is not intended to replace advice given to you by your health care provider. Make sure you discuss any questions you have with your health care provider. Document Revised: 04/20/2022 Document Reviewed: 04/20/2022 [employer] Patient Education 2023 [place] [facility] 02/02/2025 18:06:53 With:IDANIA RICKETTS Address: [address] , [place] [id number] Business (1) When:02/05/2025 18:24:24 Comments:Call for diagnosis based follow up [facility] 05-30-2025 NoteED Patient Education Note Neurology Peripheral Neuropathy Peripheral neuropathy is a type of nerve damage. It affects nerves that carry signals between the spinal cord and the arms, legs, and the rest of the body (peripheral nerves). It does not affect nerves in the spinal cord or brain. In peripheral neuropathy, one nerve or a group of nerves may be damaged. Peripheral neuropathy is a broad category that includes many specific nerve disorders, like diabetic neuropathy, hereditary neuropathy, and carpal tunnel syndrome. What are the causes? This condition may be caused by: ??? Certain diseases, such as: ? Diabetes. This is the most common cause of peripheral neuropathy. ? Autoimmune diseases, such as rheumatoid arthritis and systemic lupus erythematosus. ? Nerve diseases that are passed from parent to child (inherited). ? Kidney disease. ? Thyroid disease. ??? Other causes may include: ? Nerve injury. ? Pressure or stress on a nerve that lasts a long time. ? Lack (deficiency) of B vitamins. This can result from alcoholism, poor diet, or a restricted diet. ? Infections. ? Some medicines, such as cancer medicines (chemotherapy). ? Poisonous (toxic) substances, such as lead and mercury. ? Too little blood flowing to the legs. In some cases, the cause of this condition is not known. What are the signs or symptoms? Symptoms of this condition depend on which of your nerves is damaged. ??? Symptoms in the legs, hands, and arms can include: ? Loss of feeling (numbness) in the feet, hands, or both. ? Tingling in the feet, hands, or both. ? Burning pain. ? Very sensitive skin. ? Weakness. ? Not being able to move a part of the body (paralysis). ? Clumsiness or poor coordination. ? Muscle twitching. ? Loss of balance. ??? Symptoms in other parts of the body can include: ? Not being able to control your bladder. ? Feeling dizzy. ? Sexual problems. How is this diagnosed? Diagnosing and finding the cause of peripheral neuropathy can be difficult. Your health care provider will take your medical history and do a physical exam. A neurological exam will also be done. This involves checking things that are affected by your brain, spinal cord, and nerves (nervous system). For example, your health care provider will check your reflexes, how you move, and what you can feel. You may have other tests, such as: ??? Blood tests. ??? Electromyogram (EMG) and nerve conduction tests. These tests check nerve function and how well the nerves are controlling the muscles. ??? Imaging tests, such as a CT scan or MRI, to rule out other causes of your symptoms. ??? Removing a small piece of nerve to be examined in a lab (nerve biopsy). ??? Removing and examining a small amount of the fluid that surrounds the brain and spinal cord (lumbar puncture). How is this treated? Treatment for this condition may involve: ??? Treating the underlying cause of the neuropathy, such as diabetes, kidney disease, or vitamin deficiencies. ??? Stopping medicines that can cause neuropathy, such as chemotherapy. ??? Medicine to help relieve pain. Medicines may include: ? Prescription or gvlg-isp-nuzxzmi pain medicine. ? Anti-seizure medicine. ? Antidepressants. ? Pain-relieving patches that are applied to painful areas of skin. ??? Surgery to relieve pressure on a nerve or to destroy a nerve that is causing pain. ??? Physical therapy to help improve movement and balance. ??? Devices to help you move around (assistive devices). Follow these instructions at home: Medicines ??? Take ttxu-wtk-qswmnxs and prescription medicines only as told by your health care provider. Do not take any other medicines without first asking your health care provider. ??? Ask your health care provider if the medicine prescribed to you requires you to avoid driving or using machinery. Lifestyle ??? Do not use any products that contain nicotine or tobacco. These products include cigarettes, chewing tobacco, and vaping devices, such as e-cigarettes. Smoking keeps blood from reaching damaged nerves. If you need help quitting, ask your health care provider. ??? Avoid or limit alcohol. Too much alcohol can cause a vitamin B deficiency, and vitamin B is needed for healthy nerves. ??? Eat a healthy diet. This includes: ? Eating foods that are high in fiber, such as beans, whole grains, and fresh fruits and vegetables. ? Limiting foods that are high in fat and processed sugars, such as fried or sweet foods. General instructions ??? If you have diabetes, work closely with your health care provider to keep your blood sugar under control. ??? If you have numbness in your feet: ? Check every day for signs of injury or infection. Watch for redness, warmth, and swelling. ? Wear padded socks and comfortable shoes. These help protect your feet. ??? Develop a good support system. Living wi (more content not included)... 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 * Hyperkalemia ([place]erto [place]ican) * Kidney Disease: Medicines to Avoid ([place]) * Neuropathic Pain ([place]) [facility] [place] [address] Subjective Patient ID: Evans Forte is a 54 y.o. male. CC: Chief Complaint Patient presents with Follow-up Neuropathic pain SUBJECTIVE: Evans Forte is a 54 y.o. male who presents for follow up for chronic nerve related pain. Since last visit patient reports pain is unchanged. Most recently patient underwent imaging completed lumbar MR but could not tolerate laying still for thoracic imaging. He rescheduled his thoracic imaging and has his [facility] evaluation in January scheduled. He continues to report severe intractable neuropathy with radiating pain down both legs. MR lumbar reviewed with him demonstrating severe NF narrowing and LSS at L4-5. The patient has failed conservative measures including extensive physical therapy activity and lifestyle modification rest both OTC and prescription analgesic medications without significant improvements the patient should benefit from a series of diagnostic/therapeutic injections. Further recommendations for treatment options we made pending the outcome of initial injections Prior opioids tried: norco, tramadol, oxycodone Membrane stabilizers: lyrica gabapentin, amitriptyline, cymbalta Pain Assessment Pain Assessment: 0-10 Pain Score: 5 - Moderate pain Pain Type: Chronic pain, Neuropathic pain Pain Location: Foot Pain Orientation: Right, Left Pain Descriptors: Burning, Pins and needles, Tingling Pain Frequency: Constant/continuous Pain Onset: Ongoing Date Pain First Started: (> 10 years) Clinical Progression: Not changed Aggravating Factors: Walking, Standing Result of Injury: No Work-Related Injury: No Pain Interventions: Medication (See MAR) Response to Interventions: Lyrica, Gabapentin Patient Active Problem List Diagnosis Adenoma of left adrenal gland History of pancreatitis Open wound of left foot Type 2 diabetes mellitus (CMS/HCC) Charcot's joint of foot Hypertension, essential Acquired hypothyroidism Hyperlipidemia Vitamin D deficiency Libido, decreased Erectile dysfunction Hypogonadism male Diabetic neuropathic arthropathy (CMS/HCC) Diabetic neuropathy with neurologic complication (CMS/HCC) End stage renal disease ([facility]/HCC) Glaucoma Hypoglycemia due to type 2 diabetes mellitus ([facility]/HCC) Iron deficiency anemia 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, 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, trunk assisted current use of insulin (CMS/HCC) Microalbuminuria Mild left ventricular systolic dysfunction Morbid obesity (CMS/HCC) Obstructive sleep apnea syndrome Osteomyelitis (CMS/HCC) Polyneuropathy due to type 2 diabetes mellitus (CMS/HCC) Ulcer of right foot with fat layer exposed (CMS/HCC) Pure hypercholesterolemia 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, unspecified eye (CMS/HCC) PVD (peripheral vascular disease) Adrenal nodule Anxiety Insomnia Osteomyelitis of left foot (CMS/HCC) Diabetic retinopathy ([facility]/HCC) Past history of chewing tobacco use Mild nonproliferative diabetic retinopathy associated with type 2 diabetes mellitus ([facility]/HCC) Diabetic foot ulcers ([facility]/HCC) Chronic sinusitis COVID-19 Anemia Preop examination Cardiovascular stress test abnormal Current tobacco use Enlarged lymph node Lymphedema Venous stasis dermatitis Neuropathic pain Intervertebral disc disorders with radiculopathy, lumbar region Past Medical History: Diagnosis Date Adrenal nodule left adrenal adenoma Anemia Anxiety Charcot foot due to diabetes mellitus ([facility]/HCC) Right, s/p reconstructive surgery Chronic sinusitis COVID-19 08/2023 Diabetic foot ulcers ([facility]/HCC) right Diabetic polyneuropathy ([facility]) Diabetic retinopathy ([facility]/HCC) ED (erectile dysfunction) ESRD (end stage renal disease) ([facility]) 11/23/2022 GERD (gastroesophageal reflux disease) Glaucoma History of tobacco use Hyperlipidemia Hypertension Hypogonadism in male Hypothyroidism Insomnia Neuropathy Obesity Osteomyelitis of ankle or foot, left, acute ([facility]/HCC) Pancreatitis x2 Past history of chewing tobacco use Peripheral artery disease Proteinuria Sleep apnea Type 2 diabetes mellitus ([facility]/HCC) Vitamin D deficiency Past Surgical History: Procedure [...] REMOVAL 10/13/2023 TOE AMPUTATION Left Left lesser (more content not included)...[facility] 12-21-[address] Jasmin Junior MD / MD Treasure Jimenes AOCNP / Heavenly Bueno CNP / Yokasta Hughes APRN-WILIAN Patient Name: Evans Forte Date of : 1970 Encounter Date: 12/21/2024 Patient Care Team: Idania Ricketts DO as PCP - General Ignacio Clay MD as Consulting Physician (Transplant Surgery) Adams Tate CNP as Nurse Practitioner (Urology) Delano Bardales MD as Consulting Physician (Urology) Sivan Keller MD as Consulting Physician (Hematology and Oncology) Heavenly Bueno CNP as Nurse Practitioner (Hematology and Oncology) IMPRESSION and ASSESSMENT: Evans Forte is a 54 y.o. male with: Cancer Staging No matching staging information was found for the patient. Diagnoses and all orders for this visit: Lymphadenopathy - CT abdomen pelvis wo IV contrast; Future Nonspecific abnormal findings on diagnostic imaging Problem List Items Addressed This Visit None Visit Diagnoses Lymphadenopathy - Primary Relevant Orders CT abdomen pelvis wo IV contrast Nonspecific abnormal findings on diagnostic imaging RECOMMENDATIONS and PLAN: The differential of reactive follicular hyperplasia is broad which includes bacterial, fungal and viral infections including bartonella, staphylococcal, granulomatous, adenoviral and Lyme disease are all associated with follicular hyperplasia. Other autoimmune related diseases that are associated are rheumatoid arthritis, systemic lupus, dermatomyositis and Sj???gren syndrome. Will recommend ID follow up Evaluated by ID--Negative RPR, cryptococcus, histoplasma, blasto, CG, and HIV along with bartonella serologies. They believe LAP is likely related to his chronic diabetic foot ulcers. Recommend if no suspicion of malignancy, can wait to repeat images till wound has healed, since his infectious work up came back negative. He does report currently wounds are healed, although he does have some drainage at times that comes and goes from his legs. Today, we discussed repeating CT scans, but making sure he does not have active wound or infection around imaging time. He is waiting on clearance from our office to be considered a transplant candidate. Bone marrow aspirate did not show evidence of overt dysplasia or neoplasm. The hypercellular bone marrow can be secondary to infections and blood loss. Follow up with PCP for chronic issues. RTO after CT scans to review with MD. Heavenly Bueno, [facility] Medical Oncology/Hematology [phone] SUBJECTIVE: HPI: Evans Forte 54 y.o. man, was initially seen in the oncology clinic [...] No evidence of overt dysplasia or neoplasm His lower extremity has chronic venous stasis changes and chronic diabetic foot wounds at times. Interval History: 12/21/24 Evans presents today for follow up. He is feeling well, denies any new changes to his overall health. Reports the diabetic wounds to his feet are currently healed, he does have some drainage at times from legs but non currently. He denies any fever/chills. He is eating and drinking normally. No unexpected weight loss. Blood sugars well controlled. No new lymphadenopathy. He did meet with ID team and their infectious workup was negative. They suspect lymphadenopathy was caused by DFU. Oncology History No history exists. [No matching plan found] Other History: - Relevant medical/surgical/family/social histories, medications, problem list and allergies were reviewed and updated as needed today. Review of Systems Constitutional: Negative. HENT: Negative. Eyes: Negative. Respiratory: Negative. Cardiovascular: Negative. Gastrointestinal: Negative. Endocrine: Negative. Musculoskeletal: Negative. Skin: Positive for wound (healed wounds to feet. Does have some weeping that comes and goes at times). Neurological: Negative. Hematological: Negative. Psychiatric/Behavioral: Negative. OBJECTIVE: BP (!) 167/91 (BP Location: Left arm, Patient Position: Sitting, BP Cuff Size: Adult) Pulse 77 Temp 36.6 ???C (97.9 ???F) (Oral) Ht 1.88 m (6' 2 ) Wt (!) 145 kg (320 lb 9.6 oz) SpO2 98% BMI 41.16 kg/m??? ECOG Performance Status: 0 - Asymptomatic Physical Examination: General: Well-appearing, in no acute distress, sitting comfortably in chair. Head: Normocephalic, atraumatic. Neck: No appreciable JVP elevation. HEENT: No scleral icterus. Oral mucosa is moist without erythema, lesions, or ulcerations. Lymph: No palpable pericervical, anterior cervical, late (more content not included)...[facility]04-01-2025 History of Present illness Narrative* Idania Ricketts DO - 12/05/2024 7:28 PM EDTAssociated Problem(s): Type 2 diabetes mellitus with peripheral neuropathy (CMS/HCC) Discussed that opioids are not the correct treatment for neuropathy. He is in pain management and they are working on adjusting his medications to help with his symptoms. He is also getting a spinal cord stimulator to help. I will not prescribe narcotics for this issue as it is for chronic pain andhe is under the care of pain management. He states he will just have to go back to the ER and they will give him pain medications. * Idania Ricketts DO - 12/05/2024 7:26 PM EDTAssociated Problem(s): 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 (CMS/HCC) During the appointment today all pertinent labs, imaging, health maintenance, and glucose readings were reviewed. Encouraged to check blood glucose throughout the day with some fasting and some PP readings. They are to bring their glucose meter/cgm in to all appointments. All of the patients questions, treatment options, and current care plan and goals were discussed. Acopy of this along with pertinent instructions were given to the patient at the end of the appointment. The patient voices understanding of all of this and is to call in between appointments if they have any problems or questions. Evans Forte control is stable overall. , Will stay on current medications. * Idania Ricketts DO - 12/05/2024 2:00 PM EDT Images from the original note were not included. Evans Forte is a 54 y.o. male presents with chief complaint of ER Follow-up HPI: [facility] ER FOLLOW UP FROM 11/27/2024 Complains of right lower leg swelling. Testing: US- neg for DVT, labs - no acute findings Dx: Edema right lower leg Meds: Hydrocodone-acet 5-325mg Q4-6H prn Follows with Pain management Dr Chong Cooley who started him on elavil 20 mg on 11/23/2024 forbilateral diabetic neuropathy in his feet. Patient states no improvement in pain with Elavil. He even increased the dose but this is still not helping. He was told by pain management that he would need to come in for an appt before they could add or change medication for this. 12/12/2024 MRI without contrast of thoracic and lumbar spine ordered for pre-operative/pre-procedure planning 12/14/2024 will get a temp spinal cord stimulation placed. If it works permanent one will be placed in the 12/21/2024 [place] works well to help control the pain. Asking for a refill to last until the Elavil and lyrica do not provide any pain relief at all. He has gone to the ER multiple times to get pain medications since he is not being given any by theproviders he has seen. He states pain management has not given him any narcotics. He states that he will just go back to the ER to get pain medications if I will not give them to him. Pt states bg are running in the 100-150 range throughout the day. He is taking insulin consistentlyand not having any low bg. Flowsheet Row Documentation from 11/28/2024 in [facility] with Elsy Carter MA Hospital Information ED, Hospital or Correction Facility Discharge? ED Patient has been contacted within 2 days of being seen in the ED Yes Diagnosis -- [Edema right lower leg] Discharge Date 11/27/24 Discharged To: Home Setting Discharge Hospital [facility] Engagement Medications Discharge medications reviewed and reconciled from hospital? Yes Prescription Comments -- [Hydrocodone-acet 5-325mg Q4-6H prn] Appointments Does the patient have a primary care provider? Yes Self Management Patient Teaching Wrap Up SUBJECTIVE: See medication list at the end of the note. Allergies Allergen Reactions Latex Rash Other Reaction(s): Unknown If on for long periods of time Vancomycin Hives Haloperidol Anxiety Kimble Oil GI intolerance Runny nose, watery eyes Wound Dressing Adhesive Rash REVIEW OF SYMPTOMS: Review of Systems Constitutional: Positive for fatigue. Negative for appetite change and unexpected weight change. Eyes: Negative for visual disturbance. Respiratory: Negative for cough, shortness of breath and wheezing. Cardiovascular: Negative for chest pain, palpitations and leg swelling. Musculoskeletal: Positive for arthralgias and back pain. Neurological: Positive for weakness and numbness. Psychiatric/Behavioral: Positive for sleep disturbance. Endocrine: Negative for polydipsia, polyphagia and polyuria. OBJECTIVE: 12/05/2024 1:42 PM 10/02/2024 1:39 PM 09/19/2024 10:09 AM Vitals BMI 40.7 kg/m2 39.42 kg/m2 41.09 kg/m2 Systolic 134 110 122 Diastolic 80 64 68 Heart Rate 82 85 78 Temp 98.3 F 98.4 F 98.3 F Height (in) 6' 2 6' 2 6' 2 Weight (lb) 317 307 320 Visit Report Report Report Report Report Physical Exam Constitutional: General: He is not in acute distress. Appearance: Normal appearance. He is obese. Cardiovascular: Rate and Rhythm: Normal rate and regular rhythm. Heart sounds: No murmur heard. No friction rub. No gallop. Pulmonary: Breath sounds: Normal breath sounds. No wheezing, rhonchi or rales. Musculoskeletal: Right lower leg: Edema present. Neurological: Mental Status: He is alert. ASSESSMENT AND PLAN: Problem List Items Addressed This Visit Acquired hypothyroidism (CMS/HCC) Anxiety Dependence on renal dialysis (CMS/HCC) End stage renal disease (CMS/HCC) Essential hypertension (CMS/HCC) Obstructive sleep apnea syndrome Peripheral vascular disease (CMS/HCC) Pure hypercholesterolemia (CMS/HCC) Type 2 diabetes mellitus with foot ulcer (CMS/HCC) 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 (CMS/HCC) - Primary During the appointment today all pertinent labs, imaging, health maintenance, and glucose readings were reviewed. Encouraged to check blood glucose throughout the day with some fasting and some PP readings. They are to bring their glucose meter/cgm in to all appointments. All of the patients questions, treatment options, and current care plan and goals were discussed. Acopy of this along with pertinent instructions were given to the patient at the end of the appointment. The patient voices understanding of all of this and is to call in between appointments if they have any problems or questions. Evans Wileywalski control is stable overall. , Will stay on current medications. Type 2 diabetes mellitus with peripheral neuropathy ([facility]) Discussed that opioids are not the correct treatment for neuropathy. He is in pain management and they are working on adjusting his medications to help with his symptoms. He is also getting a spinal cord stimulator to help. I will not prescribe narcotics for this issue as it is for chronic pain andhe is under the care of pain management. He states he will just have to go back to the ER and they will give him pain medications. 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, with long-term current use of insulin ([facility]) Long-term insulin use ([facility]) Class 3 severe obesity due to excess calories with serious comorbidity and body mass index (BMI) of40.0 to 44.9 in adult Hx of amputation of lesser toe, left (HCC) ([facility]) Chronic kidney disease with end stage renal disease on dialysis due to type 2 diabetes mellitus ([facility]) Follow up for Next scheduled follow-up. Patient's Medications New Prescriptions No medications on file Previous Medications AMITRIPTYLINE (ELAVIL) 10 MG TABLET Take 20 mg by mouth at bedtime ANASTROZOLE (ARIMIDEX) 1 MG CHEMO TABLET take 1 tablet by mouth every morning (SWALLOW WHOLE WITH ADRINK OF WATER) ASPIRIN 81 MG CHEWABLE TABLET Chew 81 mg in the morning. ATORVASTATIN (LIPITOR) 20 MG TABLET Take 1 tablet (20 mg) by mouth in the morning. B COMPLEX-FOLIC ACID TABLET Take 1 tablet by mouth Daily BUMETANIDE (BUMEX) 2 MG TABLET Take 1 tablet (2 mg) by mouth Daily CALCITRIOL (ROCALTROL) 0.25 MCG CAPSULE Take 0.25 mcg by mouth in the morning. CARVEDILOL (COREG) 6.25 MG TABLET Take 6.25 mg by mouth in the morning and 6.25 mg in the evening. Take with meals. CHOLECALCIFEROL (D3-5) 5,000 UNITS TABLET Daily. CONTINUOUS BLOOD GLUC ACOUSTIC INTELLIGENCE SPECIALIST (DEXCOM G7 ACOUSTIC INTELLIGENCE SPECIALIST) DEVICE 1 (one) time each day at the same time. CONTINUOUS BLOOD GLUC SENSOR (DEXCOM G7 SENSOR) MISC as directed every 10 days for 90 days CYANOCOBALAMIN (VITAMIN B-12) 1000 MCG TABLET Daily GLUCAGON (GVOKE HYPOPEN) 1 MG/0.2ML INJECTION Inject 1 mg under the skin 1 (one) time if needed forlow blood sugar INSULIN GLARGINE (LANTUS SOLOSTAR) 100 UNIT/ML PEN Inject 50 Units under the skin in the morning. INSULIN LISPRO (HUMALOG KWIKPEN) 100 UNIT/ML INJECTION 10 units breakfast, 25 units lunch/dinner, 10-15 units snacks PLUS CORRECTION 1:30>150 MG/DL MAX DAILY DOSE OF 100 UNITS LEVOTHYROXINE (SYNTHROID, LEVOXYL) 100 MCG TABLET TAKE 1 TABLET BY MOUTH EVERY MORNING BEFORE A MEAL MIDODRINE (PROAMATINE) 10 MG TABLET TAKE 1 TABLET BY MOUTH NEEDED DURING DIALYSIS FOR BLOOD PRESSURE SUPPORT ONDANSETRON ODT (ZOFRAN-ODT) 4 MG DISINTEGRATING TABLET Take 2 tablets (8 mg) by mouth every 8 (eight) hours if needed for nausea or vomiting PREGABALIN (LYRICA) 150 MG CAPSULE Take 1 capsule (150 mg) by mouth in the morning and 1 capsule (150 mg) before bedtime. SEVELAMER CARBONATE (RENVELA) 800 MG TABLET TAKE 2 TABLETS BY MOUTH THREE TIMES DAILY WITH MEALS TESTOSTERONE 1.62 % GEL apply 2 PUMPS topically every morning TIRZEPATIDE (MOUNJARO) 10 MG/0.5ML SOLUTION AUTO-INJECTOR Inject 10 mg under the skin 1 (one) time per week TRAZODONE (DESYREL) 50 MG TABLET TAKE 1 TABLET(50 MG) BY MOUTH AT BEDTIME XPHOZAH 30 MG TABLET Take 30 mg by mouth Daily Modified Medications No medications on file Discontinued Medications CAPSAICIN-CLEANSING GEL (QUTENZA) 8 % PATCH APPLY THE CONTENTS OF 1 KIT TOPICALLY EVERY 3 MONTHS. TO BE ADMINISTERED BY A HEALTHCARE PROFESSIONAL ESCITALOPRAM (LEXAPRO) 10 MG TABLET TAKE 1 TABLET(10 MG) BY MOUTH DAILY GABAPENTIN (NEURONTIN) 300 MG CAPSULE Take 1 capsule (300 mg) by mouth 3 (three) times a week Afterdialysis LORAZEPAM (ATIVAN) 1 MG TABLET Take 1 tablet (1 mg) by mouth every 8 (eight) hours if needed for anxiety I have reviewed and reconciled the history and medication list with the patient today. documented in this encounterTexas County Memorial [id number] Telephone encounter Note* Telephone Encounter - Gretchen Elian - 11/27/2024 3:43 PM EDT Lyrica refill sent to [facility] in [place]. [facility] [id number] Miscellaneous Notes* Telephone Encounter - Gretchen Plummer - 11/27/2024 3:43 PM EDT Lyrica refill sent to [facility]. documented in this encounterTexas County Memorial [id number] Note Attestation signed by Chong Cooley MD at 11/24/2024 11:22 AM By [...] the trial produced relief[place] [address] Referral Source: self-referral, found spinal cord stimulator [...] adequate relief longer than 1 week duration, [place] with fair relief, Lyrica with inadequate relief, [...] Lyrica, Gabapentin Past Medical History: Diagnosis Date (more content not included)...[facility] 11-07-2024 NoteDate of Telehealth Visit: 11/07/2024 Follow up on right foot wound and LAP HPI The visit was conducted [id number] with the use of audio and video technology using HIPAA approved [employer] System between patient and the provider for [...] Tight glycemic control RTC in 2 months Faustino Morel MD [facility]St[facility] NotePatient was seen today in wound clinic. Documentation is provided in [employer] EHR wound care documenting system. See Intellicure [...] closes. RTC 2-3 weeks GDMT for PAD: tesfaye, [facility]inSt. [facility]02-[facility]-2025 Progress note Author Kit Lundy [facility] Note Date/Time October 30, 2024 6:06am [facility] [address] [place] [id number] Progress Note Signed Patient: Evans Forte MR#: [id number] : 1970 Acct:[id number] Age/Sex: 54 / M Adm Date: 5 Loc: 4N Room: 0Z0815-9 Type: ADM IN Attending Dr: Maxime Magana DO Copies to: ~ Date of Service: 10/30/2024 Progress Narrative Note PROGRESS NOTE Progress Note: AMA Leave The patient has decided to leave the hospital against medical advice. The patient is competent and understands the risks of leaving, including the spread of the infection and permanent disability. The patient asked for oral Abx; however, I feel that oral Abx will not be effective. He was asked to stay until the morning when we can do an MRI and be evaluated by both the podiatry and ID teams. The patient declined and still wants to leave [facility] and go to [facility] tomorrow. Documented By: Kit Lundy MD 10/30/24 010 Signed By: <Electronically signed by Kit Lundy MD> 10/30/24 06 [facility] Work Phone: 1([phone]) 534-320202-24-[address] [address] Progress Note Signed Patient: Evans Forte MR#: [id number] : 1970 Acct:[id number] Age/Sex: 54 / M Adm Date: 5 Loc: 4N Room: 0D4962-8 Type: ADM IN Attending Dr: Maxime Magana DO Copies to: ~ Date of Service: 10/30/2024 Progress Narrative Note PROGRESS NOTE Progress Note: AMA Leave The patient has decided to leave the hospital against medical advice. The patient is competent and understands the risks of leaving, including the spread of the infection and permanent disability. The patient asked for oral Abx; however, I feel that oral Abx will not be effective. He was asked to stay until the morning when we can do an MRI and be evaluated by both the podiatry and ID teams. The patient declined and still wants to leave AMA and go to [facility] tomorrow. Documented By: Kit Lundy MD 10/30/24 0102 Signed By: 10/30/24 0606 [facility]02-23-2025 History and physical note Author Maxime Magana [facility] Note Date/Time October 29, 2024 9:14pm [facility] [address] [place] [address] Hospitalist H&P Signed Patient: Evans Forte MR#: [id number] : 1970 Acct:[id number] Age/Sex: 54 / M Adm Date: 5 Loc: Room: [address] [place] [address] Type: ADM IN Attending Dr: Maxime Magana DO Copies to: DO Maxime Dhillon DO~ HPI DATE OF EXAMINATION: 10/29/24 CHIEF COMPLAINT: right foot infection, right leg cellulitis. HISTORY OF PRESENT ILLNESS: This is a 54-year-old man who came to the emergency room with right foot infection. This is located in the heel. He went to the [facility] for a wound care center appointment and he says they opened it and they dug around really deep. He explains that he was made to go to the wound care center at the [facility] because the kidney transplant program there wants him to get everything done at the [facility]. So he has had only 1 visit with them. That was on October 17. For the last 3 days he has noticed increased redness of the entire back of the foot and he has some cellulitis up in the middle of the calf on the right side as well. He says thatover the last 3 days he noticed a bad smell and some increased drainage. In the emergency room he was given IV clindamycin. We do not have any cultures on him dating back until 2019. Originally he had surgery to correct Charcot foot by podiatry with Dr. Wilkes out of [place]. So there are a number of plates and screws in the foot that are visible on the x-ray. After that he has had a number of procedures to try and heal up this wound on his heel, and he andhis family member at the bedside say that thing that works best out of all the procedures never had done on his foot was Dr. Mondragon putting a skin graft on it. He has end-stage renal disease on hemodialysis on Mondays and Wednesdays and Fridays. He says that he got about a year and a half of peritoneal dialysis which did not work well and then he switched to hemodialysis and has been on that for 2 years. He is in the process of getting on the transplant list at [facility] and the last thing that he needs is for his wound to be healed up in for dental check and he will be able to get on the list. He has hypertension, dyslipidemia, diabetes mellitus type 2 on insulin, polyneuropathy,and obstructive sleep apnea for which she does not use a sleep apnea machine. Review of Systems Review of Systems Review of systems: 10 systems are reviewed and are negative except as mentioned elsewhere in the documentation. [facility] Medical History (Updated 10/29/24 @ 21:11 by Maxime Magana DO) Hemodialysis access, fistula mature Dietary counseling and surveillance High risk medications (not anticoagulants) long-term use Ulcer of right heel Ulcer of right foot Benign hypertension with end-stage renal disease Type 2 diabetes mellitus with diabetic chronic kidney disease Wound of right foot Anemia of renal disease Hyperparathyroidism Hypertension Hyperlipidemia Dependence on renal dialysis Anemia Insulin long-term use Sleep apnea no machine Pancreatitis Hypothyroid Hyperlipidemia End stage renal disease Insulin dependent diabetes mellitus COVID-19 Chronic kidney disease Neuropathy slim feet-tingling Diabetic ulcer of foot associated with diabetes mellitus due to underlying condition, with fat layer exposed Diabetes mellitus due to underlying condition, controlled, with diabetic neuropathy Hypertensive chronic kidney disease with stage 1 through stage 4 chronic kidney disease, or unspecified chronic kidney disease Chronic kidney disease with end stage renal disease on dialysis due to type 2 diabetes mellitus Diabetes mellitus, type 2 Surgical History S/P arteriovenous (AV) fistula creation History of cardiac catheter[place] [facility] History of orthopedic surgery right foot has 14 screws and 3 plates. Family History Mother Breast cancer Cancer Legacy family hx; cancer Father Myocardial infarction Heart disease Grandparent Breast cancer Daughter Crohn's disease Legacy FamHx Relation: Daughter(s) Social History Smoking Status: Never smoker Tobacco Type: smokeless tobacco Substance Use Type: None Meds Medications and Allergies Allergies latex Allergy (Mild, Verified 10/29/24 16:40) Rash vancomycin Allergy (Unknown, Verified 10/29/24 16:40) Rash haloperidol (From Haldol) Adverse Reaction (Verified 10/29/24 16:40) Anxiety Home Medications atorvastatin 20 mg tablet (Lipitor) 20 mg PO QAM 07/15/18 [History Confirmed 10/29/24] fenofibrate nanocrystallized 145 mg tablet (Tricor) 145 mg PO QAM 04/29/20 [History Confirmed 10/29/24] levothyroxine 100 mcg tablet (Synthroid) 100 mcg PO DAILY.AC.BKFAST 04/29/20 [History Confirmed 10/29/24] insulin regular hum U-500 conc 500 unit/mL(3 mL) subcut pen (Humulin R U-500 (Conc) Insulin Kwikpen) 50 unit subcut BID 07/29/22 [History Confirmed 10/29/24] anastrozole 1 mg tablet 1 mg PO QAM 09/16/23 [History Confirmed 10/29/24] calcitriol 0.25 mcg capsule 0.25 mcg PO DAILY with dialysis 09/16/23 [History Confirmed 10/29/24] testosterone 1 % (50 mg/5 gram) transdermal gel packet 1 packet transdermal DAILY 09/16/23 [History Confirmed 10/29/24] calcium acetate(phosphat bind) 667 mg capsule 2,668 mg PO QAC 10/06/23 [History Confirmed 10/29/24] tirzepatide 5 mg/0.5 mL subcutaneous pen injector (Mounjaro) 5 mg subcut QWEEK 10/06/23 [History Confirmed 10/29/24] cyanocobalamin (vitamin B-12) 1,000 mcg tablet (Vitamin B-12) 1,000 mcg PO DAILY10/18/23 [History Confirmed 10/29/24] pregabalin 150 mg capsule 150 mg PO BID neuropathy pain 10/18/23 [History Confirmed 10/29/24] trazodone 50 mg tablet 50 mg PO QHS PRN insomnia 10/18/23 [History Confirmed 10/29/24] carvedilol 12.5 mg tablet 6.25 mg PO BID 01/25/24 [History Confirmed 10/29/24] glucagon 1 mg/0.2 mL subcutaneous auto-injector (Gvoke HypoPen 1-Pack) 1 mg subcut DAILY PRN hypoglycemia 01/25/24 [History Confirmed 10/29/24] lorazepam 1 mg tablet (Ativan) 1 mg PO Q8HR PRN anxiety 3 days #7 tabs 05/15/24 [Rx Confirmed 10/29/24] bumetanide 2 mg tablet 2 mg PO DAILY 10/29/24 [History Confirmed 10/29/24] tramadol 50 mg tablet 50 mg PO Q12HR PRN Pain 10/29/24 [History Confirmed 10/29/24] Exam Physical Exam Vital Signs: Temp Pulse Resp BP Pulse Ox O2 Del Method 98.2 F 80 18 175/77 H 98 Room Air 10/29/24 16:38 10/29/24 16:38 10/29/24 16:38 10/29/24 17:26 10/29/24 16:38 10/29/24 16:38 Narrative: Awake. Alert. Sitting upright on the ER cot watching television. Right foot: He does have a significant thick callus at the base of the right toewith a lot of black skin on it, but that one is stable and not acutely involved. All of his toes on the right foot are normal. The area that he points to the problem is right in the heel where he has a massive amount of a black thick callus. The area around this is red and tender to the touch and mildly warm. Darrion not smell any malodor or seedy drainage at this time. The redness extends upthe heel a little bit and then stops and then midway up the calf he has a blotchof redness that he says is a typical cellulitis for him. Results - Hospitalist H&P Lab Results Labs: Laboratory Last Values Corrected WBC 10.1 X10E3/uL (4.1-10.5) 10/29/24 18:14 Uncorrected WBC Count 10.1 x10E3/uL (4.1-10.5) 10/29/24 18:14 RBC 3.89 x10E6/uL (3.90-5.60) L 10/29/24 18:14 Hgb 12.1 g/dL (13.0-17.0) L 10/29/24 18:14 Hct 35.5 % (38.8-50.0) L 10/29/24 18:14 MCV 91.2 fl (83.5-101) 10/29/24 18:14 MCH 31.2 pg (27.5-35.2) 10/29/24 18:14 MCHC 34.2 g/dL (32.5-35.6) 10/29/24 18:14 RDW 14.3 % (12.0-14.8) 10/29/24 18:14 Plt Count 368 x10E3/uL (150-450) 10/29/24 18:14 MPV 6.7 fl (6.6-10.1) 10/29/24 18:14 Neut % (Auto) 74.5 % (.) 10/29/24 18:14 Lymph % (Auto) 14.2 % (.) 10/29/24 18:14 Addison % (Auto) 6.8 % (.) 10/29/24 18:14 Eos % (Auto) 3.4 % (.) 10/29/24 18:14 Baso % (Auto) 1.1 % (.) 10/29/24 18:14 Nucleat RBC Rel Count 0.0 /100 WBC (0-0.5) 10/29/24 18:14 Neut # (Auto) 7.5 x10E3/uL (1.8-7.7) 10/29/24 18:14 Lymph # (Auto) 1.4 x10E3/uL (1.00-4.8) 10/29/24 18:14 Addison # (Auto) 0.7 x10E3/uL (0.0-0.8) 10/29/24 18:14 Eos # (Auto) 0.3 x10E3/uL (0.0-0.45) 10/29/24 18:14 Baso # (Auto) 0.1 x10E3/uL (0.0-0.2) 10/29/24 18:14 Monocyte Dist Width 13.40 % (0.00-20.00) 10/29/24 18:14 ESR 74 mm/hr (0-19) H 10/29/24 18:14 PHA Creatinine Clear 13.36 10/29/24 18:14 Sodium 138 mmol/L (136-145) 10/29/24 18:14 Potassium 4.4 mmol/L (3.5-5.1) 10/29/24 18:14 Chloride 100 mmol/L (98-107) 10/29/24 18:14 Carbon Dioxide 25.8 mmol/L (21.0-31.0) 10/29/24 18:14 Anion Gap 16.6 mEq/L (6.0-15.0) H 10/29/24 18:14 BUN 78 mg/dL (7-25) H 10/29/24 18:14 Creatinine 9.58 mg/dL (0.70-1.30) H 10/29/24 18:14 Est GFR (CKD-EPI) 5.978 mL/Min 10/29/24 18:14 Glucose 259 mg/dL (70-100) H 10/29/24 18:14 Lactic Acid 1.0 mmol/L (0.5-1.9) 10/29/24 18:14 Calcium 9.4 mg/dL (8.6-10.3) 10/29/24 18:14 Total Bilirubin 0.4 mg/dl (0.3-1.0) 10/29/24 18:14 AST 7 U/L (13-39) L 10/29/24 18:14 ALT 11 U/L (7-52) 10/29/24 18:14 Alkaline Phosphatase 90 U/L (34-104) 10/29/24 18:14 C-Reactive Prot, Quant 1.5 mg/dL (0.0-0.5) H 10/29/24 18:14 Total Protein 8.2 gm/dL (6.4-8.9) 10/29/24 18:14 Albumin 4.3 gm/dL (3.5-5.7) 10/29/24 18:14 Globulin 3.9 gm/dL 10/29/24 18:14 Albumin/Globulin Ratio 1.1 10/29/24 18:14 Assessment & Plan Assessment/Plan (1) Right foot infection: (2) Cellulitis of leg, right: (3) ESRD on hemodialysis: (4) Benign hypertension with end-stage renal disease: (5) Type 2 diabetes mellitus with diabetic chronic kidney disease: Plan Assessment: Presentation with right foot infection. There also is cellulitis on the right calf. These may be separate issues. It is very difficult clinically to tell how deep this infection may go. He and his family member described that the wound care center was cutting into it verydeeply. He has a history of significant procedure to correct Charcot foot on the right with hardware and screws in the calcaneus and supporting most of the bones in his foot. End-stage renal disease on maintenance hemodialysis. Diabetes mellitus type 2. Obstructive sleep apnea. Plan: Hospital admission, inpatient status. Patient got a dose of clindamycin in the emergency room. I will put him on Teflaro, with dose adjusted for his hemodialysis status. Consult to podiatry with Dr. Gi Mondragon. Consult to infectious diseases. Consult to nephrology to continue hemodialysis. Diabetes mellitus type 2 controlled with sliding scale insulin level 3 to start. Check hemoglobin A1c. Checking ESR and CRP in the morning and every morning. To try and decide how deep this infection may go I do believe that an MRI is required. So I went ahead and ordered MRI with and without contrast. IP vs OBS Justification Based on differential dx, clinical care plan, and risk of adverse events, if untreated, in my clinical judgement this patient requires an acute care setting as: INPATIENT because of an expectation of an over 2 midnight stay. Estimated length of stay (# of days): 5 Documented By: Maxime Magana DO 2100 Signed By: <Electronically signed by Maxime Magana DO> 10/29/242113 [facility] Work Phone: 1(649) 219-442502-23-2025 Evaluation note* Diagnosis Onset Date Resolution Status Admit Date Benign hypertension with end-stage renal disease acute October 29, 2024 7:28pm Cellulitis acute October 29, 2024 7:28pm Cellulitis of leg, right acute October 29, 2024 7:28pm ESRD on hemodialysis acute 2024 7:28pm Right foot infection acute 2024 7:28pm Type 2 diabetes mellitus wit h diabetic chronic kidney disease acute October 29 025 7:28pm [facility] Work Phone: 1(276) 855-403302-23-2025 History and physical noteJoshua [place] [id number] Hospitalist H&P Signed Patient: Evans Forte MR#: [id number] : 1970 Acct:[id number] Age/Sex: 54 / M Adm Date: 5 Loc: 4N Room: 9T0428-7 Type: ADM IN Attending Dr: Maxime Magana DO Copies to: DO Maxime Dhillon, ~ HPI DATE OF EXAMINATION: 10/29/24 CHIEF COMPLAINT: right foot infection, right leg cellulitis. HISTORY OF PRESENT ILLNESS: This is a 54-year-old man who came to the emergency room with right foot infection. This is locatedin the heel. He went to the [facility] for a wound care center appointment and he says they opened it and they dug around really deep. He explains that he was made to go to the wound carecenter at the [facility] because the kidney transplant program there wants him to get everything done at the [facility]. So he has had only 1 visit with them. That was on . For the last 3 days he has noticed increased redness of the entire back of the foot and he has some cellulitis up in the middle of the calf on the right side as well. He says thatover the last 3 days he noticed a bad smell and some increased drainage. In the emergency room he was given IV clindamycin. We do not have any cultures on him dating back until 2019. Originally he had surgery to correct Charcot foot by podiatry with Dr. Wilkes out of [place]. So there are a number of plates and screws in the foot that are visible on the x-ray. After that he has had a number of procedures to try and heal up this wound on his heel, and he andhis family member at the bedside say that thing that works best out of all the procedures never had done on his foot was Dr. Mondragon putting a skin graft on it. He has end-stage renal disease on hemodialysis on Mondays and Wednesdays and Fridays. He says that he got about a year and a half of peritoneal dialysis which did not work well and then he switched to hemodialysis and has been on that for 2 years. He is in the process of getting on the transplant list at [facility] and the last thing that he needs is for his wound to be healed up in for dental check and he will be able to get on the list. He has hypertension, dyslipidemia, diabetesmellitus type 2 on insulin, polyneuropathy,and obstructive sleep apnea for which she does not use asleep apnea machine. Review of Systems Review of Systems Review of systems: 10 systems are reviewed and are negative except as mentioned elsewhere in the documentation. [facility] Medical History (Updated 10/29/24 @ 21:11 by Maxime Magana DO) Hemodialysis access, fistula mature Dietary counseling and surveillance High risk medications (not anticoagulants) long-term use Ulcer of right heel Ulcer of right foot Benign hypertension with end-stage renal disease Type 2 diabetes mellitus with diabetic chronic kidney disease Wound of right foot Anemia of renal disease Hyperparathyroidism Hypertension Hyperlipidemia Dependence on renal dialysis Anemia Insulin long-term use Sleep apnea no machine Pancreatitis Hypothyroid Hyperlipidemia End stage renal disease Insulin dependent diabetes mellitus COVID-19 Chronic kidney disease Neuropathy slim feet-tingling Diabetic ulcer of foot associated with diabetes mellitus due to underlying condition, with fat layer exposed Diabetes mellitus due to underlying condition, controlled, with diabetic neuropathy Hypertensive chronic kidney disease with stage 1 through stage 4 chronic kidney disease, or unspecified chronic kidney disease Chronic kidney disease with end stage renal disease on dialysis due to type 2 diabetes mellitus Diabetes mellitus, type 2 Surgical History S/P arteriovenous (AV) fistula creation History of cardiac catheter[place] [facility] [place] of orthopedic surgery right foot has 14 screws and 3 plates. Family History Mother Breast cancer Cancer Legacy family hx; cancer Father Myocardial infarction Heart disease Grandparent Breast cancer Daughter Crohn's disease Legacy FamHx Relation: Daughter(s) Social History Smoking Status: Never smoker Tobacco Type: smokeless tobacco Substance Use Type: None Meds Medications and Allergies Allergies latex Allergy (Mild, Verified 10/29/24 16:40) Rash vancomycin Allergy (Unknown, Verified 10/29/24 16:40) Rash haloperidol (From Haldol) Adverse Reaction (Verified 10/29/24 16:40) Anxiety Home Medications atorvastatin 20 mg tablet (Lipitor) 20 mg PO QAM 07/15/18 [History Confirmed 10/29/24] fenofibrate nanocrystallized 145 mg tablet (Tricor) 145 mg PO QAM 04/29/20 [History Confirmed 10/29/24] levothyroxine 100 mcg tablet (Synthroid) 100 mcg PO DAILY.AC.BKFAST 04/29/20 [History Confirmed 10/29/24] insulin regular hum U-500 conc 500 unit/mL(3 mL) subcut pen (Humulin R U-500 (Conc) Insulin Kwikpen) 50 unit subcut BID 07/29/22 [History Confirmed 10/29/24] anastrozole 1 mg tablet 1 mg PO QAM 09/16/23 [History Confirmed 10/29/24] calcitriol 0.25 mcg capsule 0.25 mcg PO DAILY with dialysis 09/16/23 [History Confirmed 10/29/24] testosterone 1 % (50 mg/5 gram) transdermal gel packet 1 packet transdermal DAILY 09/16/23 [HistoryConfirmed 10/29/24] calcium acetate(phosphat bind) 667 mg capsule 2,668 mg PO QAC 10/06/23 [History Confirmed 10/29/24] tirzepatide 5 mg/0.5 mL subcutaneous pen injector (Mounjaro) 5 mg subcut QWEEK 10/06/23 [History Confirmed 10/29/24] cyanocobalamin (vitamin B-12) 1,000 mcg tablet (Vitamin B-12) 1,000 mcg PO DAILY10/18/23 [History Confirmed 10/29/24] pregabalin 150 mg capsule 150 mg PO BID neuropathy pain 10/18/23 [History Confirmed 10/29/24] trazodone 50 mg tablet 50 mg PO QHS PRN insomnia 10/18/23 [History Confirmed 10/29/24] carvedilol 12.5 mg tablet 6.25 mg PO BID 01/25/24 [History Confirmed 10/29/24] glucagon 1 mg/0.2 mL subcutaneous auto-injector (Anushkaoke Wilamren 1-Pack) 1 mg subcut DAILY PRN hypoglycemia 01/25/24 [History Confirmed 10/29/24] lorazepam 1 mg tablet (Ativan) 1 mg PO Q8HR PRN anxiety 3 days #7 tabs 05/15/24 [Rx Confirmed 10/29/24] bumetanide 2 mg tablet 2 mg PO DAILY 10/29/24 [History Confirmed 10/29/24] tramadol 50 mg tablet 50 mg PO Q12HR PRN Pain 10/29/24 [History Confirmed 10/29/24] Exam Physical Exam Vital Signs: Temp Pulse Resp BP Pulse Ox O2 Del Method 98.2 F 80 18 175/77 H 98 Room Air 10/29/24 16:38 10/29/24 16:38 10/29/24 16:38 10/29/24 17:26 10/29/24 16:38 10/29/24 16:38 Narrative: Awake. Alert. Sitting upright on the ER cot watching television. Right foot: He does have a significant thick callus at the base of the right toewith a lot of blackskin on it, but that one is stable and not acutely involved. All of his toes on the right foot are normal. The area that he points to the problem is right in the heel where he has a massive amount ofa black thick callus. The area around this is red and tender to the touch and mildly warm. Darrion not smell any malodor or seedy drainage at this time. The redness extends upthe heel a little bit and then stops and then midway up the calf he has a blotchof redness that he says is a typical cellulitis for him. Results - Hospitalist H&P Lab Results Labs: Laboratory Last Values Corrected WBC 10.1 X10E3/uL (4.1-10.5) 10/29/24 18:14 Uncorrected WBC Count 10.1 x10E3/uL (4.1-10.5) 10/29/24 18:14 RBC 3.89 x10E6/uL (3.90-5.60) L 10/29/24 18:14 Hgb 12.1 g/dL (13.0-17.0) L 10/29/24 18:14 Hct 35.5 % (38.8-50.0) L 10/29/24 18:14 MCV 91.2 fl (83.5-101) 10/29/24 18:14 MCH 31.2 pg (27.5-35.2) 10/29/24 18:14 MCHC 34.2 g/dL (32.5-35.6) 10/29/24 18:14 RDW 14.3 % (12.0-14.8) 10/29/24 18:14 Plt Count 368 x10E3/uL (150-450) 10/29/24 18:14 MPV 6.7 fl (6.6-10.1) 10/29/24 18:14 Neut % (Auto) 74.5 % (.) 10/29/24 18:14 Lymph % (Auto) 14.2 % (.) 10/29/24 18:14 Addison % (Auto) 6.8 % (.) 10/29/24 18:14 Eos % (Auto) 3.4 % (.) 10/29/24 18:14 Baso % (Auto) 1.1 % (.) 10/29/24 18:14 Nucleat RBC Rel Count 0.0 /100 WBC (0-0.5) 10/29/24 18:14 Neut # (Auto) 7.5 x10E3/uL (1.8-7.7) 10/29/24 18:14 Lymph # (Auto) 1.4 x10E3/uL (1.00-4.8) 10/29/24 18:14 Addison # (Auto) 0.7 x10E3/uL (0.0-0.8) 10/29/24 18:14 Eos # (Auto) 0.3 x10E3/uL (0.0-0.45) 10/29/24 18:14 Baso # (Auto) 0.1 x10E3/uL (0.0-0.2) 10/29/24 18:14 Monocyte Dist Width 13.40 % (0.00-20.00) 10/29/24 18:14 ESR 74 mm/hr (0-19) H 10/29/24 18:14 PHA Creatinine Clear 13.36 10/29/24 18:14 Sodium 138 mmol/L (136-145) 10/29/24 18:14 Potassium 4.4 mmol/L (3.5-5.1) 10/29/24 18:14 Chloride 100 mmol/L (98-107) 10/29/24 18:14 Carbon Dioxide 25.8 mmol/L (21.0-31.0) 10/29/24 18:14 Anion Gap 16.6 mEq/L (6.0-15.0) H 10/29/24 18:14 BUN 78 mg/dL (7-25) H 10/29/24 18:14 Creatinine 9.58 mg/dL (0.70-1.30) H 10/29/24 18:14 Est GFR (CKD-EPI) 5.978 mL/Min 10/29/24 18:14 Glucose 259 mg/dL (70-100) H 10/29/24 18:14 Lactic Acid 1.0 mmol/L (0.5-1.9) 10/29/24 18:14 Calcium 9.4 mg/dL (8.6-10.3) 10/29/24 18:14 Total Bilirubin 0.4 mg/dl (0.3-1.0) 10/29/24 18:14 AST 7 U/L (13-39) L 10/29/24 18:14 ALT 11 U/L (7-52) 10/29/24 18:14 Alkaline Phosphatase 90 U/L (34-104) 10/29/24 18:14 C-Reactive Prot, Quant 1.5 mg/dL (0.0-0.5) H 10/29/24 18:14 Total Protein 8.2 gm/dL (6.4-8.9) 10/29/24 18:14 Albumin 4.3 gm/dL (3.5-5.7) 10/29/24 18:14 Globulin 3.9 gm/dL 10/29/24 18:14 Albumin/Globulin Ratio 1.1 10/29/24 18:14 Assessment & Plan Assessment/Plan (1) Right foot infection: (2) Cellulitis of leg, right: (3) ESRD on hemodialysis: (4) Benign hypertension with end-stage renal disease: (5) Type 2 diabetes mellitus with diabetic chronic kidney disease: Plan Assessment: Presentation with right foot infection. There also is cellulitis on the right calf. These may be separate issues. It is very difficult clinically to tell how deep this infection may go. He and his family member described that the wound care center was cutting into it verydeeply. He has a history of significant procedure to correct Charcot foot on the right with hardware and screws in the calcaneus and supporting most of the bones in his foot. End-stage renal disease on maintenance hemodialysis. Diabetes mellitus type 2. Obstructive sleep apnea. Plan: Hospital admission, inpatient status. Patient got a dose of clindamycin in the emergency room. I will put him on Teflaro, with dose adjusted for his hemodialysis status. Consult to podiatry with Dr. Gi Mondragon. Consult to infectious diseases. Consult to nephrology to continue hemodialysis. Diabetes mellitus type 2 controlled with sliding scale insulin level 3 to start. Check hemoglobin A1c. Checking ESR and CRP in the morning and every morning. To try and decide how deep this infection may go I do believe that an MRI is required. So I went ahead and ordered MRI with and without contrast. IP vs OBS Justification Based on differential dx, clinical care plan, and risk of adverse events, if untreated, in my clinical judgement this patient requires an acute care setting as: INPATIENT because of an expectation ofan over 2 midnight stay. Estimated length of stay (# of days): 5 Documented By: Maxime Magana, 2100 Signed By: 10/29/242113 [facility]02-11-2025 NotePatient was seen today in wound clinic. Documentation is provided in [employer] wound care documenting system. See [employer] note for full details. Right heel DFU [...] evidence of significant arterial occlusive disease bilaterally. [facility]02-11-2025 NoteSubjective Patient ID: Evans Forte is a 54 y.o. male who presents for pre transplant evaluation HPI A 54 year old male patient with ESRD on HD since Sep 2023, is in the process of renal transplant evaluation, has two ulcers on the right foot, one heal and one on the sole first metatarsal, he follows community support associate for this, during his evaluation CT abdomen [...] Proteinuria Sleep apnea Type 2 diabetes mellitus ([facility]) Vitamin D deficiency Patient Active Problem List Diagnosis Adenoma of left adrenal gland History of pancreatitis Open wound of left foot Type 2 diabetes mellitus ([facility]/HCC) Charcot's joint of foot Hypertension, essential Acquired hypothyroidism Hyperlipidemia Vitamin D deficiency Libido, decreased Erectile dysfunction Hypogonadism male Diabetic neuropathic arthropathy (CMS/HCC) Diabetic neuropathy (CMS/HCC) End stage renal disease ([facility]/HCC) Glaucoma Hypoglycemia due to type 2 diabetes mellitus ([facility]/HCC) Iron deficiency anemia 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, 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, 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 ([facility]) Microalbuminuria Mild left ventricular systolic dysfunction Morbid obesity ([facility]/HCC) Obstructive sleep apnea syndrome Osteomyelitis ([facility]) Polyneuropathy due to type 2 diabetes mellitus ([facility]/HCC) Ulcer of right foot with fat layer exposed ([facility]/HCC) Pure hypercholesterolemia Disorder of adrenal gland ([facility]/HCC) Type 2 diabetes mellitus with 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 edema, unspecified eye (CMS/HCC) Peripheral vascular disease ([facility]/HCC) Adrenal nodule ([facility]/HCC) Anxiety Insomnia Osteomyelitis of left foot ([facility]/HCC) Diabetic retinopathy ([facility]/HCC) Past history of chewing tobacco use Mild nonproliferative diabetic retinopathy associated with type 2 diabetes mellitus ([facility]/HCC) Diabetic foot ulcers ([facility]) Chronic sinusitis COVID-19 Anemia Pre-transplant evaluation for [...] with a drink of water. 90 tablet (more content not included)...[facility]01-29-2025 Telephone encounter Note* Telephone Encounter - Gretchen Plummer - 10/04/2024 9:10 AM EST Pt's spouse is requesting a Referral, office notes, medication list to Dr. Martel for pain management fax [phone] [facility] [id number] Miscellaneous Notes* Telephone Encounter - Gretchen Plummer - 10/04/2024 9:10 AM EST Pt's spouse is requesting a Referral, office notes, medication list to Dr. Martel for pain management fax [phone] documented in this encounterTexas County Memorial [id number] History of Present illness Narrative* Gi Mondragon DPM - 10/03/2024 9:30 AM EST Images from the original note were not included. HPI: Patient presents in office today for ulcer recheck. He continues using the Medihoney over the woundbed and has noticed improvement. Pt states he gets clear pink drainage. The ulcer under the big toeseems to have more callous and has opened. Patient had to miss a few appointments as there was someconcern that he might have Leukemia. This is not the case, but he did have to have testing and a biopsy done. He is supposed to be seeing infectious disease and a vascular doctor for his swelling that has been constant since he had a lymph node removed from the right leg. No other concerns. Exam: General Examination: GENERAL APPEARANCE: awake, aware of surroundings, in no acute distress Diabetic shoes and inserts: Date of diabetic foot exam: 10/03/24 Previous amputation of the foot were part of the foot: No History of previous ulceration of the foot: Yes History of pre-ulcerative callus of the foot: Yes Peripheral neuropathy with evidence of callus formation: Yes Foot deformity: Yes- prior subtalar arthrodesis due to flatfoot deformity Poor circulation: No Vascular: DORSALIS PEDIS PULSE: 2/4 right POSTERIOR TIBIAL PULSE: 2/4 right TEMPERATURE GRADIENT: warm to cool EDEMA: moderate +3 pitting to the RLE CAPILLARY FILLING TIME(sec): capillary fill intact bilateral digits less than 3 secs Neurologic: VIBRATORY: decreased to the hallux IPJ bialteral SEMMES-YAIMA 5.07 MONOFILAMENT: decreased to the plantar ball of the foot and toes Dermatologic: SKIN FINDINGS: normal HYPERKERATOSIS: around the ulceration sites plantar right foot NAIL PATHOLOGY: digits 1-5 bilateral are intact SKIN PATHOLOGY: thin, hyperkeratosis around the ulceration sites. Ulcer: LOCATION: plantar sub 1st MPJ right THICKNESS: partial STAGE: limited to breakdown of skin PREVIOUS MEASUREMENT: 0.3cm x 0.2cm x 0.1cm PRE DEBRIDEMENT SIZE: prior ulceration is closed, thickened skin noted and fissure to the area POST DEBRIDEMENT SIZE: 1.5cm x 0.2cm x 0.1cm TRACKING: none DRAINAGE: serous MALODOR: none BASE: hyperkeratosis WOUND EDGES: hyperkeratosis SURROUNDING TISSUE: intact SURROUNDING SOI: none Ulcer: LOCATION: plantar medial right heel THICKNESS: partial STAGE: fat layer exposed PREVIOUS MEASUREMENT: 0.3cm x 0.4cm x 0.2cm PRE DEBRIDEMENT SIZE: closed- fissure in skin with dried blood POST DEBRIDEMENT SIZE: covered with hyperkeratotic tissue and dried blood, no opening noted upon removal of the hyperkeratosis. There were some small areas of pinpoint bleeding after debridement. TRACKING: none DRAINAGE: serous MALODOR: none BASE: granular WOUND EDGES: significant hyperkeratosis SURROUNDING TISSUE: intact SURROUNDING SOI: none Orthopedic: FOOT MORPHOLOGY: neutral JOINT RANGE OF MOTION: without pain or crepitus MUSCLE STRENGTH: 5/5 for all pedal groups tested Assessment: Ulceration sub 1st MPJ right Ulceration right heel Diabetes with foot ulceration Diabetes with kidney disease Plan: 1. Ulceration to the right heel and 1st MPJ was evaluated at today's visit. 2. Wound debridement was performed of the ulceration site. As patient has full neuropathy, there isno need for local anesthesia. I did excise nonviable tissue, callus, skin, and slough of ulcerationsite. This was performed with a tissue nipper and will be one of possibly staged series of ulceration and debridements on a weekly basis pending medical necessity. Pedal pain was none. Hemostasis was obtained with pressure. 3. Patient was instructed on continued dressing changes to the ulceration site with Collagen. They should continue with use of the walking boot for offloading/pressure reduction. Patient does have HHC for dressing changes. Encouraged him to keep the dressing clean, dry and intact to the ulceration s ites and reduce pressure as much as possible. Also encouraged patient to use moisturizing cream andpumice stone to reduce the callous build-up to the right heel. 4. Patient was advised if they notice any worsening to the ulceration site including signs of infection, N/F/V/C to call the office for an urgent appointment or go to the nearest emergency room. 5. RTC: 2-3 weeks. Diabetes: 1. A Diabetic Foot Screening Exam was performed and the patient was educated on the foot complications related to Diabetes. Instructed to contact our office if any foot problems develop before next visit. 2. Patient was instructed on the continued importance of diabetic foot care along with proper diet and keeping their blood sugar under control to prevent complications. 3. Patient would like to proceed with extra depth diabetic shoes and insoles. We discussed the needed paperwork from their PCP in order to proceed with ordering these if they would like to obtain them. The patient fits the criteria for shoes and inserts based upon diabetes, prior ulceration. Referral was placed for the patient to go to [facility] in [place] for their DM shoes and inserts. 4. Patient will be contacted for appointment information once pre-certification has been completed if required. documented in this encounterTexas County Memorial [id number] History of Present illness Narrative* Idania Ricketts DO - 10/02/2024 9:28 PM ESTAssociated Problem(s): Type 2 diabetes mellitus with peripheral neuropathy (CMS/HCC) He is on multiple medications for this [...] have to say about his legs first. * Idania Ricketts DO - 10/02/2024 1:30 PM EST Images from the original note were not included. Evans Forte is a 54 y.o. male presents with chief complaint of Vomiting HPI: Nausea / Vomiting Patient complains of nausea and vomiting, hot, and cold spells, dizziness, unsteady on his feet Onset of symptoms was 4 days ago. His thinks that he gets himself worked up from the anxiety of his health as well as the pain in his feet/legs. Vomiting has occurred a couple times a day.Last episode was on his way here Vomitus is described as bile. Symptoms have unchanged Treatment to date has been zofran. This does help with his symptoms. He is able to keep a little soft foods. Chewing on ice. On going bilateral leg and foot pain. He was on an abx that was finished last week. His leg has improved with less swelling since the change from lasix to bumex. He has lost 13 lbs since his last visit. He does think they took too much fluid off him at dialysis today and that may be partly why he is feeling so bad today. He is on lyrica, gabapentin, and tramadol for his neuropathy but none of them are helping. SUBJECTIVE: See medication list at the end of the note. Allergies Allergen Reactions Latex Rash Other Reaction(s): Unknown If on for long periods of time Vancomycin Hives Haloperidol Anxiety Kimble Oil GI intolerance Runny nose, watery eyes Wound Dressing Adhesive Rash REVIEW OF SYMPTOMS: Review of Systems Constitutional: Positive for fatigue. Negative for appetite change and unexpected weight change. Eyes: Negative for visual disturbance. Respiratory: Negative for cough, shortness of breath and wheezing. Cardiovascular: Positive for leg swelling. Negative for chest pain and palpitations. Gastrointestinal: Positive for nausea and vomiting. Negative for abdominal pain and diarrhea. Neurological: Positive for weakness, light-headedness and numbness. Endocrine: Negative for polydipsia, polyphagia and polyuria. OBJECTIVE: 10/02/2024 1:39 PM 09/19/2024 10:09 AM 09/04/2024 1:36 PM Vitals BMI 39.42 kg/m2 41.09 kg/m2 40.06 kg/m2 Systolic 110 122 124 Diastolic 64 68 62 Heart Rate 85 78 81 Temp 98.4 F 98.3 F 98.4 F Height (in) 6' 2 6' 2 6' 2 Weight (lb) 307 320 312 Visit Report Report Report Report Report Physical Exam Constitutional: General: He is not in acute distress. Appearance: Normal appearance. He is obese. Cardiovascular: Rate and Rhythm: Normal rate and regular rhythm. Heart sounds: No murmur heard. No friction rub. No gallop. Pulmonary: Breath sounds: Normal breath sounds. No wheezing, rhonchi or rales. Musculoskeletal: General: Swelling present. Comments: Chronic venous stasis skin changes right lower ext. No sign of infection Skin: Findings: Rash present. Neurological: Mental Status: He is alert. ASSESSMENT AND PLAN: Problem List Items Addressed This Visit Type 2 diabetes mellitus with peripheral neuropathy (CMS/HCC) He is on multiple medications for this [...] have to say about his legs first. Other Visit Diagnoses Bilious vomiting with nausea - Primary Relevant Orders Comprehensive metabolic panel TSH CBC and differential Will get labs to make sure no electrolyte or other metabolic disturbance that may be leading to hisnausea/vomiting. Especially with the recent change from lasix to bumex. Follow up for Next scheduled follow-up. Patient's Medications New Prescriptions No medications on file Previous Medications ANASTROZOLE (ARIMIDEX) 1 MG CHEMO TABLET take 1 tablet by mouth every morning (SWALLOW WHOLE WITH ADRINK OF WATER) ASPIRIN 81 MG CHEWABLE TABLET Chew 81 mg in the morning. ATORVASTATIN (LIPITOR) 20 MG TABLET Take 1 tablet (20 mg) by mouth in the morning. B COMPLEX-FOLIC ACID TABLET Take 1 tablet by mouth Daily BUMETANIDE (BUMEX) 2 MG TABLET Take 1 tablet (2 mg) by mouth Daily CALCITRIOL (ROCALTROL) 0.25 MCG CAPSULE Take 0.25 mcg by mouth in the morning. CARVEDILOL (COREG) 6.25 MG TABLET Take 6.25 mg by mouth in the morning and 6.25 mg in the evening. Take with meals. CHOLECALCIFEROL (D3-5) 5,000 UNITS TABLET Daily. CONTINUOUS BLOOD GLUC ACOUSTIC INTELLIGENCE SPECIALIST (DEXCOM G7 ACOUSTIC INTELLIGENCE SPECIALIST) DEVICE 1 (one) time each day at the same time. CONTINUOUS BLOOD GLUC SENSOR (DEXCOM G7 SENSOR) MISC as directed every 10 days for 90 days CYANOCOBALAMIN (VITAMIN B-12) 1000 MCG TABLET Daily ESCITALOPRAM (LEXAPRO) 10 MG TABLET TAKE 1 TABLET(10 MG) BY MOUTH DAILY GABAPENTIN (NEURONTIN) 300 MG CAPSULE Take 1 capsule (300 mg) by mouth 3 (three) times a week Afterdialysis GLUCAGON (GVOKE HYPOPEN) 1 MG/0.2ML INJECTION Daily INSULIN GLARGINE (LANTUS SOLOSTAR) 100 UNIT/ML PEN Inject 50 Units under the skin in the morning. INSULIN LISPRO (HUMALOG KWIKPEN) 100 UNIT/ML INJECTION 10 units breakfast, 25 units lunch/dinner, 10-15 units snacks PLUS CORRECTION 1:30>150 MG/DL MAX DAILY DOSE OF 100 UNITS LEVOTHYROXINE (SYNTHROID, LEVOXYL) 100 MCG TABLET Take 1 tablet (100 mcg) by mouth in the morning. Take before meals. LORAZEPAM (ATIVAN) 1 MG TABLET Take 1 tablet (1 mg) by mouth every 8 (eight) hours if needed for anxiety MIDODRINE (PROAMATINE) 10 MG TABLET TAKE 1 TABLET BY MOUTH NEEDED DURING DIALYSIS FOR BLOOD PRESSURE SUPPORT ONDANSETRON ODT (ZOFRAN-ODT) 4 MG DISINTEGRATING TABLET Take 2 tablets (8 mg) by mouth every 8 (eight) hours if needed for nausea or vomiting PREGABALIN (LYRICA) 150 MG CAPSULE Take 1 capsule (150 mg) by mouth in the morning and 1 capsule (150 mg) before bedtime. SEVELAMER CARBONATE (RENVELA) 800 MG TABLET TAKE 2 TABLETS BY MOUTH THREE TIMES DAILY WITH MEALS TESTOSTERONE 1.62 % GEL apply 2 PUMPS topically every morning TIRZEPATIDE (MOUNJARO) 10 MG/0.5ML SOLUTION AUTO-INJECTOR Inject 10 mg under the skin 1 (one) time per week TRAMADOL (ULTRAM) 50 MG TABLET Take 1 tablet (50 mg) by mouth every 8 (eight) hours for 7 days TRAZODONE (DESYREL) 50 MG TABLET TAKE 1 TABLET(50 MG) BY MOUTH AT BEDTIME XPHOZAH 30 MG TABLET Take 30 mg by mouth Daily Modified Medications No medications on file Discontinued Medications FUROSEMIDE (LASIX) 80 MG TABLET Take 80 mg by mouth in the morning and 80 mg before bedtime. I have reviewed and reconciled the history and medication list with the patient today. documented in this encounterTexas County Memorial [id number] NoteDr. Catia dunham both [place] Health01-14-2025 History of Present illness Narrative* Idania Ricketts DO - 09/19/2024 10:00 AM EST Images from the original note were not included. Evans Forte is a 54 y.o. male presents with chief complaint of Cellulitis HPI: Subjective Evans Forte is a 54 y.o. male who presents for evaluation of a possible skin infection located lower right leg Symptoms include painful, red, warm, swollen Precipitating event: lymph node remove from right groin August 22. All testing came back normal. He saw the head start teacher after this and they referred him to see a vascular surgeon and infectiousdisease. He is limiting sodium in his diet and walking to try and help with the swelling. Treatment to date has included antibiotics started 1 week ago with some relief. Complains of a lot of pain motrin 1000mg q6 hrs is not helping. Follows with Vascular doctor on 09/16/2024 Appt with infectious disease doctor on 10/10/2024 SUBJECTIVE: See medication list at the end of the note. Allergies Allergen Reactions Latex Rash Other Reaction(s): Unknown If on for long periods of time Vancomycin Hives Haloperidol Anxiety Kimble Oil GI intolerance Runny nose, watery eyes Wound Dressing Adhesive Rash REVIEW OF SYMPTOMS: Review of Systems Constitutional: Positive for fatigue. Respiratory: Negative for shortness of breath. Cardiovascular: Positive for leg swelling. Negative for chest pain and palpitations. Skin: Positive for color change. OBJECTIVE: 09/19/2024 10:09 AM 09/04/2024 1:36 PM 08/07/2024 1:53 PM Vitals BMI 41.09 kg/m2 40.06 kg/m2 40.19 kg/m2 Systolic 122 124 134 Diastolic 68 62 78 Heart Rate 78 81 83 Temp 98.3 F 98.4 F 96.9 F Height (in) 6' 2 6' 2 6' 2 Weight (lb) 320 312 313 Visit Report Report Report Report Report Physical Exam Constitutional: General: He is not in acute distress. Appearance: Normal appearance. He is obese. Cardiovascular: Rate and Rhythm: Normal rate and regular rhythm. Heart sounds: Murmur heard. No friction rub. No gallop. Pulmonary: Breath sounds: Normal breath sounds. No wheezing, rhonchi or rales. Musculoskeletal: General: Swelling present. Right lower leg: Edema present. Comments: Tightened skin and edema in the right leg with venous stasis skin changes and warmth. No obvious cellulitis Skin: Findings: Erythema present. Neurological: Mental Status: He is alert. ASSESSMENT AND PLAN: Problem List Items Addressed This Visit End stage renal disease (CMS/[facility]) Relevant Medications bumetanide (Bumex) 2 MG tablet Venous stasis dermatitis Lymphedema - Primary Relevant Medications HYDROcodone-acetaminophen ([place]) 5-325 MG tablet Other Relevant Orders Ambulatory referral to Physical Therapy Will try and help the swelling in his leg with changing his diuretic from lasix to bumex. Not sure if this will do much. He is to finish out the abx but not completely convinced this is cellulitis. Suspect mostly venous stasis skin changes. He does have an upcoming appt with vascular surgery and infectious disease but not sure this will do much. He is wearing compression socks. Will refer to PT to see if they are able to help with the lymphedema. I did give him a few norco to help with the pain. Highly encouraged him to limit motrin as he is going to get a stomach ulcer from the high doses he is taking. His [facility] report notes that he is getting narcotics from [place] about every 3 months. He states that he doesn't go to [place] and that those are not his. He also says some of his dialysis medications keep getting sent to a kevin in [place] with the same name. He is to talk to the pharmacist about this Follow up for Next scheduled follow-up. Patient's Medications New Prescriptions BUMETANIDE (BUMEX) 2 MG TABLET Take 1 tablet (2 mg) by mouth Daily HYDROCODONE-ACETAMINOPHEN (NORCO) 5-325 MG TABLET Take 1 tablet by mouth every 6 (six) hours if needed for severe pain for up to 5 days Previous Medications ANASTROZOLE (ARIMIDEX) 1 MG CHEMO TABLET take 1 tablet by mouth every morning (SWALLOW WHOLE WITH ADRINK OF WATER) ASPIRIN 81 MG CHEWABLE TABLET Chew 81 mg in the morning. ATORVASTATIN (LIPITOR) 20 MG TABLET Take 1 tablet (20 mg) by mouth in the morning. B COMPLEX-FOLIC ACID TABLET Take 1 tablet by mouth Daily CALCITRIOL (ROCALTROL) 0.25 MCG CAPSULE Take 0.25 mcg by mouth in the morning. CARVEDILOL (COREG) 6.25 MG TABLET Take 6.25 mg by mouth in the morning and 6.25 mg in the evening. Take with meals. CHOLECALCIFEROL (D3-5) 5,000 UNITS TABLET Daily. CONTINUOUS BLOOD GLUC ACOUSTIC INTELLIGENCE SPECIALIST (DEXCOM G7 ACOUSTIC INTELLIGENCE SPECIALIST) DEVICE 1 (one) time each day at the same time. CONTINUOUS BLOOD GLUC SENSOR (DEXCOM G7 SENSOR) [facility] [place] directed every 10 days for 90 days CYANOCOBALAMIN (VITAMIN B-12) 1000 MCG TABLET Daily ESCITALOPRAM (LEXAPRO) 10 MG TABLET TAKE 1 TABLET(10 MG) BY MOUTH DAILY GABAPENTIN (NEURONTIN) 300 MG CAPSULE Take 1 capsule (300 mg) by mouth 3 (three) times a week Afterdialysis GLUCAGON (GVOKE HYPOPEN) 1 MG/0.2ML INJECTION Daily INSULIN GLARGINE (LANTUS SOLOSTAR) 100 UNIT/ML PEN Inject 50 Units under the skin in the morning. INSULIN LISPRO (HUMALOG KWIKPEN) 100 UNIT/ML INJECTION 10 units breakfast, 25 units lunch/dinner, 10-15 units snacks PLUS CORRECTION 1:30>150 MG/DL MAX DAILY DOSE OF 100 UNITS LEVOTHYROXINE (SYNTHROID, LEVOXYL) 100 MCG TABLET Take 1 tablet (100 mcg) by mouth in the morning. Take before meals. LORAZEPAM (ATIVAN) 1 MG TABLET Take 1 tablet (1 mg) by mouth every 8 (eight) hours if needed for anxiety MIDODRINE (PROAMATINE) 10 MG TABLET TAKE 1 TABLET BY MOUTH NEEDED DURING DIALYSIS FOR BLOOD PRESSURE SUPPORT ONDANSETRON ODT (ZOFRAN-ODT) 4 MG DISINTEGRATING TABLET Take 2 tablets (8 mg) by mouth every 8 (eight) hours if needed for nausea or vomiting PREGABALIN (LYRICA) 150 MG CAPSULE Take 1 capsule (150 mg) by mouth in the morning and 1 capsule (150 mg) before bedtime. SEVELAMER CARBONATE (RENVELA) 800 MG TABLET TAKE 2 TABLETS BY MOUTH THREE TIMES DAILY WITH MEALS TESTOSTERONE 1.62 % GEL apply 2 PUMPS topically every morning TIRZEPATIDE (MOUNJARO) 10 MG/0.5ML SOLUTION AUTO-INJECTOR Inject 10 mg under the skin 1 (one) time per week TRAZODONE (DESYREL) 50 MG TABLET TAKE 1 TABLET(50 MG) BY MOUTH AT BEDTIME XPHOZAH 30 MG TABLET Take 30 mg by mouth Daily Modified Medications No medications on file Discontinued Medications FUROSEMIDE (LASIX) 40 MG TABLET Take 2 tablets (80 mg) by mouth in the morning and 2 tablets (80 mg) before bedtime. I have reviewed and reconciled the history and medication list with the patient today. documented in this encounterTexas County Memorial [id number] History of Present illness Narrative* Gi Mondragon DPM - 09/19/2024 9:15 AM EST Images from the original note were not included. HPI: Patient presents in office today for ulcer recheck. He continues using the Medihoney over the woundbed and has noticed improvement. Pt states he gets clear pink drainage. The ulcer under the big toeseems to have more callous and has opened. Patient had to miss a few appointments as there was someconcern that he might have Leukemia. This is not the case, but he did have to have testing and a biopsy done. He is supposed to be seeing infectious disease and a vascular doctor for his swelling that has been constant since he had a lymph node removed from the right leg. No other concerns. Exam: General Examination: GENERAL APPEARANCE: awake, aware of surroundings, in no acute distress Vascular: DORSALIS PEDIS PULSE: 2/4 right POSTERIOR TIBIAL PULSE: 2/4 right TEMPERATURE GRADIENT: warm to cool EDEMA: moderate +3 pitting to the RLE CAPILLARY FILLING TIME(sec): capillary fill intact bilateral digits less than 3 secs Neurologic: VIBRATORY: decreased to the hallux IPJ bialteral SEMMES-YAIMA 5.07 MONOFILAMENT: decreased to the plantar ball of the foot and toes Dermatologic: SKIN FINDINGS: normal HYPERKERATOSIS: around the ulceration sites plantar right foot NAIL PATHOLOGY: digits 1-5 bilateral are intact SKIN PATHOLOGY: thin, hyperkeratosis around the ulceration sites. Ulcer: LOCATION: plantar sub 1st MPJ right THICKNESS: partial STAGE: limited to breakdown of skin PREVIOUS MEASUREMENT: 0.4cm x 0.6cm x 0.1cm PRE DEBRIDEMENT SIZE: closed POST DEBRIDEMENT SIZE: 0.3cm x 0.2cm x 0.1cm TRACKING: none DRAINAGE: serous MALODOR: none BASE: hyperkeratosis WOUND EDGES: There is a very small blood blister proximal medial to the prior ulceration site. I did open and drain this and no deep opening is noted or extension to the prior ulceration site SURROUNDING TISSUE: intact SURROUNDING SOI: none Ulcer: LOCATION: plantar medial right heel THICKNESS: partial STAGE: fat layer exposed PREVIOUS MEASUREMENT: 1cm x 0.4cm x 0.2cm PRE DEBRIDEMENT SIZE: closed- fissure in skin with dried blood POST DEBRIDEMENT SIZE: 0.3cm x 0.4cm x 0.2cm TRACKING: none DRAINAGE: serous MALODOR: none BASE: granular WOUND EDGES: significant hyperkeratosis SURROUNDING TISSUE: intact SURROUNDING SOI: none Orthopedic: FOOT MORPHOLOGY: neutral JOINT RANGE OF MOTION: without pain or crepitus MUSCLE STRENGTH: 5/5 for all pedal groups tested Assessment: Ulceration sub 1st MPJ right Ulceration right heel Diabetes with foot ulceration Diabetes with kidney disease Plan: 1. Ulceration to the right heel and 1st MPJ was evaluated at today's visit. 2. Wound debridement was performed of the ulceration site. As patient has full neuropathy, there isno need for local anesthesia. I did excise nonviable tissue, callus, skin, and slough of ulcerationsite. This was performed with a tissue nipper and will be one of possibly staged series of ulceration and debridements on a weekly basis pending medical necessity. Pedal pain was none. Hemostasis was obtained with pressure. 3. Patient was instructed on continued dressing changes to the ulceration site with Collagen. They should continue with use of the walking boot for offloading/pressure reduction. Patient does have C for dressing changes. Encouraged him to keep the dressing clean, dry and intact to the ulceration s ites and reduce pressure as much as possible. Also encouraged patient to use moisturizing cream andpumice stone to reduce the callous build-up to the right heel. 4. Patient was advised if they notice any worsening to the ulceration site including signs of infection, N/F/V/C to call the office for an urgent appointment or go to the nearest emergency room. 5. RTC: 2-3 weeks. documented in this encounterNOWashington County Memorial [id number] NoteTC returned message to patient regarding work up status. Patient states has completed lymph node biopsy and bone biopsy and both came back negative. Patient recommended to follow up with infectious disease regarding lymph nodes. Patient continues to work on nicotine cessation, dental and podiatry. Patient will update TC after appointment with infectious disease. Melinda Keen RNUnSelect Medical [facility]01-07-2025 Telephone encounter Note* Telephone Encounter - Gretchen Plummer - 09/12/2024 10:51 AM EST Pt's spouse called stating pt has cellulitis. Lower part of right leg is red, hot to the touch, andswollen. She feels he needs an antibiotic called in. [facility] in [place]. [facility] [id number] Miscellaneous Notes* Telephone Encounter - Gretchen Plummer - 09/12/2024 10:51 AM EST Pt's spouse called stating pt has cellulitis. Lower part of right leg is red, hot to the touch, andswollen. She feels he needs an antibiotic called in. [facility] in [place]. documented in this encounterTexas County Memorial [id number] Note Attestation signed by Sivan Keller MD at 09/15/2024 3:27 PM By using [...] to vascular for her stasis Thanks Sivan Keller MD HEMATOLOGY and MEDICAL ONCOLOGY Dr. Jasmin Junior MD / MD Treasure Jimenes AOCNP / Heavenly Bueno CNP / Yokasta Hughes APRN-WILIAN Patient Name: Evans Forte Date of : 1970 Encounter Date: 09/14/2024 Patient Care Team: Idania Ricketts DO as PCP - General Ignacio Clay MD as Consulting Physician (Transplant Surgery) Adams Tate NP as Nurse Practitioner (Urology) Delano Bardales MD as Consulting Physician (Urology) Sivan Keller MD as Consulting Physician (Hematology and Oncology) [...] (L) 08/22/2024 MCV 94.4 08/22/2024 MCH 30.9 1 (more content not included)...[facility] 09-05-2024 NoteSubjective Patient ID: Evans Forte is a 54 [...] Summary Flow cytometry studies were completed at [facility] ARKeX: Leukemia/lymphoma phenotyping evaluation by flow cytometry: - [...] the past 36 hour(s)). No follow-ups on file.[facility]12-30-2024 History of Present illness Narrative* Idania Ricketts DO - 09/04/2024 1:30 PM EST Images from the original note were not included. Evans Forte is a 54 y.o. male presents with chief complaint of ER Follow-up HPI: [facility] ER Follow up from 08/28/2024 He did have a lymph node biopsy in the right groin C/o swelling in right leg and calf is tender. Labs-unremarkable US- no DVT Treatment plan: ibuprofen 600 mg q6hr prn pain and repeat US in 1 week Leg is still swollen from the knee down. It is warm but not not tender to touch. Follows with the surgeon tomorrow for the lymph node bx results and his oncologist on 09/12 to discuss bone marrow bx results. Flowsheet Row Office Visit from 09/04/2024 in [facility] with Idania Ricketts DO Hospital Information ED, Hospital or Correction Facility Discharge? ED Patient has been contacted within 1 week of being seen in the ED Yes Diagnosis right leg edema Discharge Date 08/28/24 Discharged To: Home Setting Discharge Hospital [facility] Engagement Admission Date 08/28/24 Medications Discharge medications reviewed and reconciled from hospital? Yes Appointments Self Management Patient Teaching Wrap Up Wrap Up Additional Comments appt 09/04/2024 SUBJECTIVE: See medication list at the end of the note. Allergies Allergen Reactions Latex Rash Other Reaction(s): Unknown If on for long periods of time Vancomycin Hives Other Reaction(s): Unknown Other reaction(s): Unknown Haloperidol Anxiety Kimble Oil GI intolerance Runny nose, watery eyes Wound Dressing Adhesive Rash REVIEW OF SYMPTOMS: Review of Systems Constitutional: Positive for fatigue. Negative for chills, fever and unexpected weight change. Respiratory: Negative for cough, shortness of breath and wheezing. Cardiovascular: Positive for leg swelling. Negative for chest pain and palpitations. Musculoskeletal: Positive for arthralgias and back pain. Neurological: Positive for weakness and numbness. OBJECTIVE: 09/04/2024 1:36 PM 08/07/2024 1:53 PM 05/16/2024 9:17 AM Vitals BMI 40.06 kg/m2 40.19 kg/m2 40.37 kg/m2 Systolic 124 134 154 Diastolic 62 78 62 Heart Rate 81 83 81 Temp 98.4 F 96.9 F 96.9 F Height (in) 6' 2 6' 2 6' 2 Weight (lb) 312 313 314.4 Visit Report Report Report Report Physical Exam Constitutional: General: He is not in acute distress. Appearance: Normal appearance. He is obese. Cardiovascular: Rate and Rhythm: Normal rate and regular rhythm. Heart sounds: No murmur heard. No friction rub. No gallop. Pulmonary: Breath sounds: Normal breath sounds. No wheezing, rhonchi or rales. Musculoskeletal: Right lower leg: Edema present. Left lower leg: Edema present. Comments: Chronic venous stasis skin changes in the right lower ext. No sign of DVT. Neurological: Mental Status: He is alert. ASSESSMENT AND PLAN: Problem List Items Addressed This Visit None Visit Diagnoses Chronic venous insufficiency - Primary Lymphedema He has chronic venous insufficiency with chronic venous stasis skin changes. He also recently had alymph node removed from his groin contributing to the swelling in his leg. Recent venous US didn't show any sign of a DVT. I don't feel that this needs to be repeated at this time. Continued to encourage movement to help with blood and lymphatic flow. Recommended that we could send him to PT to help with lymphedema as well if he would like. Follow up for Next scheduled follow-up. Patient's Medications New Prescriptions No medications on file Previous Medications ANASTROZOLE (ARIMIDEX) 1 MG CHEMO TABLET take 1 tablet by mouth every morning (SWALLOW WHOLE WITH ADRINK OF WATER) ASPIRIN 81 MG CHEWABLE TABLET Chew 81 mg in the morning. ATORVASTATIN (LIPITOR) 20 MG TABLET Take 1 tablet (20 mg) by mouth in the morning. B COMPLEX-FOLIC ACID TABLET Take 1 tablet by mouth Daily CALCITRIOL (ROCALTROL) 0.25 MCG CAPSULE Take 0.25 mcg by mouth in the morning. CARVEDILOL (COREG) 6.25 MG TABLET Take 6.25 mg by mouth in the morning and 6.25 mg in the evening. Take with meals. CHOLECALCIFEROL (D3-5) 5,000 UNITS TABLET Daily. CONTINUOUS BLOOD GLUC ACOUSTIC INTELLIGENCE SPECIALIST (DEXCOM G7 ACOUSTIC INTELLIGENCE SPECIALIST) DEVICE 1 (one) time each day at the same time. CONTINUOUS BLOOD GLUC SENSOR (DEXCOM G7 SENSOR) MISC as directed every 10 days for 90 days CYANOCOBALAMIN (VITAMIN B-12) 1000 MCG TABLET Daily ESCITALOPRAM (LEXAPRO) 10 MG TABLET Take 1 tablet (10 mg) by mouth Daily FUROSEMIDE (LASIX) 40 MG TABLET Take 2 tablets (80 mg) by mouth in the morning and 2 tablets (80 mg) before bedtime. GABAPENTIN (NEURONTIN) 300 MG CAPSULE Take 1 capsule (300 mg) by mouth 3 (three) times a week Afterdialysis GLUCAGON (GVOKE HYPOPEN) 1 MG/0.2ML INJECTION Daily INSULIN GLARGINE (LANTUS SOLOSTAR) 100 UNIT/ML PEN Inject 50 Units under the skin in the morning. INSULIN LISPRO (HUMALOG KWIKPEN) 100 UNIT/ML INJECTION 10 units breakfast, 25 units lunch/dinner, 10-15 units snacks PLUS CORRECTION 1:30>150 MG/DL MAX DAILY DOSE OF 100 UNITS LEVOTHYROXINE (SYNTHROID, LEVOXYL) 100 MCG TABLET Take 1 tablet (100 mcg) by mouth in the morning. Take before meals. LORAZEPAM (ATIVAN) 1 MG TABLET Take 1 tablet (1 mg) by mouth every 8 (eight) hours if needed for anxiety ONDANSETRON ODT (ZOFRAN-ODT) 4 MG DISINTEGRATING TABLET Take 2 tablets (8 mg) by mouth every 8 (eight) hours if needed for nausea or vomiting PREGABALIN (LYRICA) 150 MG CAPSULE Take 1 capsule (150 mg) by mouth in the morning and 1 capsule (150 mg) before bedtime. SEVELAMER CARBONATE (RENVELA) 800 MG TABLET TAKE 2 TABLETS BY MOUTH THREE TIMES DAILY WITH MEALS TESTOSTERONE 1.62 % GEL apply 2 PUMPS topically every morning TIRZEPATIDE (MOUNJARO) 10 MG/0.5ML SOLUTION AUTO-INJECTOR Inject 10 mg under the skin 1 (one) time per week TRAZODONE (DESYREL) 50 MG TABLET TAKE 1 TABLET(50 MG) BY MOUTH AT BEDTIME XPHOZAH 30 MG TABLET Take 30 mg by mouth Daily Modified Medications No medications on file Discontinued Medications HYDROCODONE-ACETAMINOPHEN (NORCO) 5-325 MG TABLET TAKE 1 TABLET BY MOUTH EVERY 6 HOURS FOR 5 DAYS NEEDED FOR PAIN IBUPROFEN 600 MG TABLET TAKE 1 TABLET BY MOUTH EVERY 6 HOURS NEEDED FOR PAIN. DO NOT EXCEED 4 DOSES IN A 24 HOUR PERIOD I have reviewed and reconciled the history and medication list with the patient today. documented in this encounterTexas County Memorial [id number] Telephone encounter Note* Telephone Encounter - Gretchen Plummer - 09/01/2024 8:04 AM EST Copied from [facility] #[id number]. Topic: Clinical Support >> Aug 31, 2024 12:54 PM Jennifer Bone wrote: called in stating that he was seen [place] [facility] [place], but they refused to treat his leg, they gave him an ibuprofen and sent him home, but the thinks his right leg may be infected. Shewas advised to go to Urgent Care or ER but she will not go back to [facility] She wanted to let Dr Emerson know what is going on and to advise what to do. [facility] County Memorial [id number] Miscellaneous Notes* Telephone Encounter - Gretchen Plummer - 09/01/2024 8:04 AM EST Copied from [facility] #[id number]. Topic: Clinical Support >> Aug 31, 2024 12:54 PM Jennifer Bone wrote: called in stating that he was seen at [facility] for his leg, but they refused to treat his leg, they gave him an ibuprofen and sent him home, but the thinks his right leg may be infected. Shewas advised to go to Urgent Care or ER but she will not go back to [facility]. She wanted to let Dr Emerson know what is going on and to advise what to do. documented in this encounterTexas County Memorial [id number] NotePatient: Evans Forte Procedure Summary Date: 08/22/24 Room / Location: [facility] OPERATING ROOM 05 / [facility] Operating Room Anesthesia Start: 1554 Anesthesia Stop: 172 Procedure: EXCISIONAL RIGHT GROIN LYMPH NODE BIOPSY [...] PACU per anesthesia protocol. No notable events documented.[facility]12-17-2024 Note Patient: Evans Forte Procedure Information Date/Time: 08/22/24 1545 Procedure: EXCISIONAL RIGHT GROIN LYMPH NODE BIOPSY (Right: Groin) - PATIENT HAS APPT IN THE HOSP AT 11, [facility], MAKE SURE TO GETN CONSENT PRIOR PER CT Location: [facility] OPERATING ROOM 05 / [facility] Operating Room Surgeons: Erick Carter MD Relevant [...] mg) in the morning. 06/22/24 06/22/25 Yes Pedro Alvarez MD atorvastatin (Lipitor) 20 mg tablet [...] mcg by mouth before breakfast. Yes Historical Prov (more content not included)...[facility]12-17-2024 NoteSedation Preparation Pre Procedure Evaluation Pre Procedure Evaluation: H&P was reviewed and the patient was examined. No change has occurred in the patient's condition since the H&P has been completed. ASA Score ASA: 3 Mallampati Mallampati: III Informed Consent Sedation Plan and Risks Explained: PatientUnSelect Medical [facility] 08-22-2024 NotePlease let path know to add NGS for mds and myeloid with hypercellular marrow Thanks Sivan Keller MDUnSelect Medical [facility]12-17-2024 NoteProcedure: CT-guided bone marrow biopsy and bone marrow aspiration Staff: Esme Resident: Marquise Contrast: None Complications: None Medications: Versed 2 mg iv. Fentanyl 100 mcg iv. Moderate sedation was monitored by the interventional radiology nursing staff. Total sedation time of 20 minutes Indication: Concern for lymphoma, staging Procedure: Using CT guidance, the Flat.to system was used to perform bone marrow [...] and biopsy. Electronically signed: Jey Victoria. Not OneliadUniTrinity [facility]12-[facility]24 NoteSubjective Patient ID: Evans Forte is a 54 [...] skull base to mid thigh FDG Order: [id number] Status: Final result Visible to patient: Yes (seen) Dx: Enlarged lymph nodes; Pre-transplant ... 0 Result Notes Details Reading Physician Reading Date Result Priority Alonso Jaffe MD [phone] 07/31/2024 Routine Narrative & Impression History: Pretransplant [...] CT abdomen pelvis wo renal recipient Order: [id number] Status: Edited Result - FINAL Visible to patient: Yes (seen) Dx: Pre-transplant evaluation for kidney ... 0 Result Notes Details Reading Physician Reading Date Result Priority Alonso Sampson MD [phone] 07/12/2024 Routine Addenda Addendum: Note that there [...] common, internal, and external iliac arteries. No suspiciou (more content not included)...[facility] 08-08-2024 Note Attestation signed by Sivan Keller MD at 08/09/2024 9:02 PM By using the attestations below, the signing clinician agrees that I have read and verify that the documentation has been personally reviewed by me and ensure that the documentation accurately reflects the encounter. As noted by Dr Bradley VEGA: I personally saw this patient on [...] bone marow bx after Questions answered Sivan Keller MD HEMATOLOGY and MEDICAL ONCOLOGY Dr. Jasmin Junior MD / MD Treasure Jimenes AOCNP / Heavenly Bueno CNP / Yokasta Hughes APRN-WILIAN Patient Name: Evans Forte Date of : 1970 Encounter Date: 08/08/2024 Patient Care Team: Idania Ricketts DO as PCP - General Ignacio Clay MD as Consulting Physician (Transplant Surgery) [...] evaluation. -Return to clinic in 4 weeks Bradley Shelley MD PGY 6 hematology and oncology [...] Laboratory Results: Lab Results Component Value Date (more content not included)...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 Encouraged to check blood glucose throughout the day with some fasting and some PP readings. They are to bring their glucose meter/cgm in to all appointments. All of the patients questions, treatment options, and current care plan and goals were discussed. Acopy of this along with pertinent instructions were given to the patient at the end of the appointment. The patient voices understanding of all of this and is to call in between appointments if they have any problems or questions. Evans Forte is doing very well and encouraged on this. , Instructions given today include: Insulin instructions and Dietary education. Will increase mounjaro, decrease lantus, and increase humalog for dinner and snacks. He is to work on decreasing snacking in the evening. * Idania Ricketts, DO - 08/07/2024 1:45 PM EST Images from the original note were not included. Evans Forte is a 54 y.o. male presents with chief complaint of Diabetes HPI: Diabetes Mellitus Follow-up: Evans Forte is here for follow-up evaluation of diabetes mellitus. The initial diagnosis of diabetes was made in 1999 Diabetes complications: retinopathy, renal failure, non-healing ulcers, neuropathy He has been checking his blood glucose with Dexcom (linked) on a daily basis. Bg running higher at night due to stress eating. Will sometimes take an extra 10 units with the snacks at night but not always. Bg running around 100 in the am. Lab 07/11/2024 - microalbumin level due Last A1c: 7.4 (07/11/24) and 6.3 at his last office visit on Last eye exam: 01/07/2024 Hx diabetes medications not tolerated: Current concerns include: States his bg levels are higher d/t stress Dexcom is not linked. Average is around 180 Seems to be running higher at night Mocyndi does not seem to be doing anything for him. Diet: no sugar, salt, potassium,or phosphorus. Mainly Protein and vegetables, low carbs Drinks: water, 1 cans of regular mountain dew Exercise: Walking Hypoglycemia: one since last visit. Was finishing up everything for kidney transplant. Found through labs that he had leukemia. PET scan was done 07/28- saw something in spine, and lymph nodes in groin were inflamed. Heart cath done 07/27 Appt tomorrow with oncologist. Meets with surgeon tomorrow afternoon re: lymph nodes. SUBJECTIVE: PROBLEM LIST SOCIAL ALLERGIES: Patient Active Problem List Diagnosis Acquired hypothyroidism (CMS/HCC) Anxiety Dependence on renal dialysis (CMS/HCC) End stage renal disease (CMS/HCC) Essential hypertension (CMS/HCC) Non-pressure chronic ulcer of other part of right foot with unspecified severity (CMS/HCC) Obstructive sleep apnea syndrome Peripheral vascular disease (CMS/HCC) Insomnia Pure hypercholesterolemia (CMS/HCC) Type 2 diabetes mellitus with foot ulcer (CMS/HCC) 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 (CMS/HCC) Vitamin D deficiency Type 2 diabetes mellitus with ESRD (end-stage renal disease) (CMS/[facility]) Type 2 diabetes mellitus with peripheral neuropathy [place] 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, with long-term current use of insulin ([facility]) Long-term insulin use ([facility]) Class 3 severe obesity due to excess calories with serious comorbidity and body mass index (BMI) of40.0 to 44.9 in adult ([facility]) Hx of amputation of lesser toe, left ([facility]) ([facility]) Adenoma of left adrenal gland Chronic kidney disease with end stage renal disease on dialysis due to type 2 diabetes mellitus ([facility]) Erectile dysfunction Hypoglycemia due to type 2 diabetes mellitus ([facility]) Hypogonadism male Iron deficiency anemia Past history of chewing tobacco use Social History Tobacco Use Smoking status: Never Smokeless tobacco: Never Substance Use Topics Alcohol use: Never Comment: caffeine: more than 4 cups per day coffee Drug use: Never Allergies Allergen Reactions Latex Rash Other Reaction(s): Unknown If on for long periods of time Vancomycin Hives Other Reaction(s): Unknown Other reaction(s): Unknown Haloperidol Anxiety Kimble Oil GI intolerance Runny nose, watery eyes Wound Dressing Adhesive Rash Synopsis SmartLink Latest Ref Rng & Units 08/07/2024 07/27/2024 00:00 07/11/2024 11:22 Antidiabetic medications Glucagon Daily (1 MG/0.2ML SOAJ) No sig No sig Insulin Glargine 60 Units Daily SC-Discontinued 60 Units Daily SC Insulin Glargine ADMINISTER 60 UNITS UNDER THE SKIN DAILY (100 UNIT/ML SOPN)- Discontinued ADMINISTER 60 UNITS UNDER THE SKIN DAILY (100 UNIT/ML SOPN) Insulin Glargine 50 Units q AM SC Insulin Lispro INJECT 10 UNITS UNDER THE SKIN WITH SMALL MEALS AND 20 UNITS WITH LARGE MEALS PLUS CORRECTION 1:30>150 MG/DL MAX DAILY DOSE OF 100 UNITS (100 UNIT/ML SOPN)-Discontinued (Dose adjustm) INJECT 10 UNITS UNDER THE SKIN WITH SMALL MEALS AND 20 UNITS WITH LARGE MEALS PLUS CORRECTION 1:30>150 MG/DL MAX DAILY DOSE OF 100 UNITS (100 UNIT/ML SOPN) INJECT 10 UNITS UNDER THE SKIN WITH SMALL MEALS AND 20 UNITS WITH LARGE MEALS PLUS CORRECTION 1:30>150 MG/DL MAX DAILY DOSE OF 100 UNITS (100 UNIT/ML SOPN) Insulin Lispro 10 units breakfast, 25 units lunch/dinner, 10-15 units snacks PLUS CORRECTION 1:30>150 MG/DL MAX DAILY DOSE OF 100 UNITS (100 UNIT/ML SOPN) Tirzepatide 7.5 mg Weekly SC (7.5 MG/0.5ML SOAJ)-Discontinued 7.5 mg Weekly SC (7.5 MG/0.5ML SOAJ) 7.5 mg Weekly SC (7.5 MG/0.5ML SOAJ) Tirzepatide 10 mg Weekly SC (10 MG/0.5ML SOAJ) Labs MHPT A1C 4.0 - 6.0 % 7.4 Creatinine 0.70 - 1.30 mg/dL 7.27 Outpatient prescription Medication marked as long-term Patient-reported This result is from an external source. The 10-year ASCVD risk score (Matt SHAFER, et al., 2019) is: 12.4% Values used to calculate the score: Age: 54 years Sex: Male Is Non- : No Diabetic: Yes Tobacco smoker: No Systolic Blood Pressure: 134 mmHg Is BP treated: No HDL Cholesterol: 34 mg/dL Total Cholesterol: 186 mg/dL REVIEW OF SYMPTOMS: Review of Systems Constitutional: Positive for fatigue. Negative for chills, diaphoresis, fever and unexpected weightchange. Respiratory: Positive for shortness of breath. Negative for cough. Cardiovascular: Positive for leg swelling. Negative for chest pain and palpitations. Gastrointestinal: Positive for nausea. Negative for abdominal pain, constipation, diarrhea and vomiting. Musculoskeletal: Positive for arthralgias and back pain. Neurological: Positive for weakness and numbness. Psychiatric/Behavioral: Positive for sleep disturbance. The patient is nervous/anxious. OBJECTIVE: 08/07/2024 1:53 PM 05/16/2024 9:17 AM 02/25/2024 1:36 PM Vitals BMI 40.19 kg/m2 40.37 kg/m2 41.47 kg/m2 Systolic 134 154 122 Diastolic 78 62 78 Heart Rate 83 81 75 Temp 96.9 F 96.9 F 98.3 F Height (in) 6' 2 6' 2 6' 2 Weight (lb) 313 314.4 323 Visit Report Report Report Report Physical Exam Constitutional: General: He is not in acute distress. Appearance: Normal appearance. He is obese. Cardiovascular: Rate and Rhythm: Normal rate and regular rhythm. Heart sounds: No murmur heard. No friction rub. No gallop. Pulmonary: Breath sounds: Normal breath sounds. No wheezing, rhonchi or rales. Musculoskeletal: General: No swelling. Neurological: Mental Status: He is alert. ASSESSMENT AND PLAN: Problem List Items Addressed This Visit Acquired hypothyroidism ([facility]) Anxiety Dependence on renal dialysis ([facility]) End stage renal disease ([facility]) Essential hypertension ([facility]) Obstructive sleep apnea syndrome - Primary Peripheral vascular disease ([facility]) Pure hypercholesterolemia ([facility]) 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 ([facility]) During the appointment today all pertinent labs, imaging, health maintenance, and glucose readings were reviewed. Encouraged to check blood glucose throughout the day with some fasting and some PP readings. They are to bring their glucose meter/cgm in to all appointments. All of the patients questions, treatment options, and current care plan and goals were discussed. Acopy of this along with pertinent instructions were given to the patient at the end of the appointment. The patient voices understanding of all of this and is to call in between appointments if they have any problems or questions. Evans Forte is doing very well and encouraged on this. , Instructions given today include: Insulin instructions and Dietary education. Will increase mounjaro, decrease lantus, and increase humalog for dinner and snacks. He is to work on decreasing snacking in the evening. 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, with long-term current use of insulin ([facility]) Long-term insulin use ([facility]) Class 3 severe obesity due to excess calories with serious comorbidity and body mass index (BMI) of40.0 to 44.9 in adult ([facility]) Hx of amputation of lesser toe, left (HCC) ([facility]) Chronic kidney disease with end stage renal disease on dialysis due to type 2 diabetes mellitus ([facility]/HCC) Other Visit Diagnoses Inguinal adenopathy Will be seeing oncology and general surgery about inguinal adenopathy. Follow up in about 4 months (around 12/06/2024) for Recheck. Patient's Medications New Prescriptions TIRZEPATIDE (MOUNJARO) 10 MG/0.5ML SOLUTION AUTO-INJECTOR Inject 10 mg under the skin 1 (one) time per week Previous Medications ANASTROZOLE (ARIMIDEX) 1 MG CHEMO TABLET take 1 tablet by mouth every morning (SWALLOW WHOLE WITH ADRINK OF WATER) ASPIRIN 81 MG CHEWABLE TABLET Chew 81 mg in the morning. ATORVASTATIN (LIPITOR) 20 MG TABLET Take 1 tablet (20 mg) by mouth in the morning. B COMPLEX-FOLIC ACID TABLET Take 1 tablet by mouth in the morning and 1 tablet in the evening. CALCITRIOL (ROCALTROL) 0.25 MCG CAPSULE Take 0.25 mcg by mouth in the morning. CARVEDILOL (COREG) 6.25 MG TABLET Take 6.25 mg by mouth in the morning and 6.25 mg in the evening. Take with meals. CHOLECALCIFEROL (D3-5) 5,000 UNITS TABLET Daily. CONTINUOUS BLOOD GLUC ACOUSTIC INTELLIGENCE SPECIALIST (DEXCOM G7 ACOUSTIC INTELLIGENCE SPECIALIST) DEVICE 1 (one) time each day at the same time. CONTINUOUS BLOOD GLUC SENSOR (DEXCOM G7 SENSOR) [facility] [place] directed every 10 days for 90 days CYANOCOBALAMIN (VITAMIN B-12) 1000 MCG TABLET Daily ESCITALOPRAM (LEXAPRO) 10 MG TABLET Take 1 tablet (10 mg) by mouth Daily FUROSEMIDE (LASIX) 40 MG TABLET Take 2 tablets (80 mg) by mouth in the morning and 2 tablets (80 mg) before bedtime. GABAPENTIN (NEURONTIN) 300 MG CAPSULE Take 1 capsule (300 mg) by mouth 3 (three) times a week Afterdialysis GLUCAGON (GVOKE HYPOPEN) 1 MG/0.2ML INJECTION Daily LEVOTHYROXINE (SYNTHROID, LEVOXYL) 100 MCG TABLET Take 1 tablet (100 mcg) by mouth in the morning. Take before meals. LORAZEPAM (ATIVAN) 1 MG TABLET Take 1 tablet (1 mg) by mouth every 8 (eight) hours if needed for anxiety ONDANSETRON ODT (ZOFRAN-ODT) 4 MG DISINTEGRATING TABLET Take 2 tablets (8 mg) by mouth every 8 (eight) hours if needed for nausea or vomiting PREGABALIN (LYRICA) 150 MG CAPSULE Take 1 capsule (150 mg) by mouth in the morning and 1 capsule (150 mg) before bedtime. SEVELAMER CARBONATE (RENVELA) 800 MG TABLET TAKE 2 TABLETS BY MOUTH THREE TIMES DAILY WITH MEALS TESTOSTERONE 1.62 % GEL apply 2 PUMPS topically every morning XPHOZAH 30 MG TABLET Take 30 mg by mouth Daily Modified Medications Modified Medication Previous Medication INSULIN GLARGINE (LANTUS SOLOSTAR) 100 UNIT/ML PEN Lantus SoloStar 100 UNIT/ML pen Inject 50 Units under the skin in the morning. ADMINISTER 60 UNITS UNDER THE SKIN DAILY INSULIN LISPRO (HUMALOG KWIKPEN) 100 UNIT/ML INJECTION insulin lispro (HumaLOG KWIKPEN) 100 UNIT/MLinjection 10 units breakfast, 25 units lunch/dinner, 10-15 units snacks PLUS CORRECTION 1:30>150 MG/DL MAXDAILY DOSE OF 100 UNITS INJECT 10 UNITS UNDER THE SKIN WITH SMALL MEALS AND 20 UNITS WITH LARGE MEALS PLUS CORRECTION 1:30>150 MG/DL MAX DAILY DOSE OF 100 UNITS TRAZODONE (DESYREL) 50 MG TABLET traZODone (Desyrel) 50 MG tablet TAKE 1 TABLET(50 MG) BY MOUTH AT BEDTIME Take 1 tablet (50 mg) by mouth at bedtime Discontinued Medications CALCIUM ACETATE (PHOSLO) 667 MG CAPSULE take 2 capsules by mouth with meals three times a day then take 1... (REFER TO PRESCRIPTION NOTES). CAPSAICIN-CLEANSING GEL (QUTENZA, 4 PATCH,) 8 % PATCH Apply 1 patch topically every 3 (three) months Follow instructions to prepare site. Prescriber to taqueria area. Once applied, remove after 30 minutes and clean area with supplied gel. TIRZEPATIDE (MOUNJARO) 7.5 MG/0.5ML SOLUTION PEN-INJECTOR Inject 7.5 mg under the skin 1 (one) timeper week I have reviewed and reconciled the history and medication list with the patient today. documented in this encounterTexas County Memorial [id number] NoteLeft message to call office back and schedule with Dr Nguyen for enlarged lymph nodes [facility] NotePatient: Evans Forte Procedure Information Date/Time: 07/27/24 0830 Procedures: Coronary angiography Right heart cath Location: [facility] / [facility] (Cath) Providers: Pedro Alvarez MD Clinical information reviewed: Tobacco Allergies [...] who consented to blood products. Additional Equipment [facility]sSt[facility]11-[facility]24 Note Subjective Patient ID: Evans Forte is a 54 y.o. male who presents for pre transplant evaluation. HPI Mr. 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 [facility] NotePatient returned call to TC. Discussed with patient need for additional testing recommended from CT abdomen and pelvis performed 07/11/24. Informed patient evaluating surgeon would like patient to obtain PET CT. Patient states okay to place order at [facility]. Order placed and mailed to patient. Melinda Keen, JACOBUnSelect Medical [facility]11-05-2024 NoteI saw the patient in clinic. They understood [...] and patient financial responsibility forms they signed. [facility]11-05-2024 NoteCoordinator met with patient for re-evaluation appointment today in the Transplant clinic. Patient watched the transplant education video. Reviewed transplant process and consents with patient. Answered patient questions. Social work, finance and commanding officer motorized squad in to see patient for review. Dr. Russell in for H&P and review of transplant plan. Dr. Moreland in for surgical evaluation. Coordinator provided copy of plan to patient and reviewed it with them. Patient aware further testing needed and to keep transplant team updated. Understanding verbalized by patient. Sent patient for labs, EKG & CXR today. [facility] Practitioner provided patient TE folder with education on various transplant consents, the workup process, surgery details, postop expectations, transplant statistics, and living donor information. Answered patient questions and verified understanding. Melinda Keen, JACOBUnSelect Medical [facility]11-05-2024 NotePre- Transplant Evaluation Nephrology Consult Chief Complaint Patient presents with Kidney Eval PCP: Idania Ricketts DO Txp Referring: Ada Uriostegui [id number] [place], [place] - [address] [facility] [address] [facility] [id number] Organ: Kidney Subjective Visit Vitals BP 134/69 [...] Other reaction(s): Unknown Adhesive Rash Haloperidol Anxiety Kimble Oil GI intolerance Runny nose, watery eyes Medication Documentation Review Audit Reviewed by Sita Danielson MA (Supervisor Capacitor Processing) on 07/11/24 at 0808 Medication Order Taking? Sig Documenting Provider Last Dose Status anastrozole (Arimidex) 1 mg chemo tablet [id number] Yes Take 1 tablet (1 mg total) by mouth in the morning Swallow whole with a drink of water. Adams Tate NP Taking Active aspirin 81 mg chewable tablet [id number] Yes Chew 1 tablet (81 mg) in the morning. Pedro Alvarez MD Taking Active atorvastatin (Lipitor) 20 mg tablet [id number] Yes Take 1 tablet every day by oral route. Historical ProviderMD Taking Active b complex 0.4 mg tablet [id number] Yes Take 1 tablet by mouth in the morning and at bedtime. Historical Provider, Taking Active calcitriol (Rocaltrol) 0.25 mcg capsule [id number] Yes Take 0.25 mcg by mouth in the morning. Historical ProviderMD Taking Active calcium acetate (Phoslo) 667 mg capsule [id number] Yes take 2 capsules by mouth with meals three times a day then take 1... (REFER TO PRESCRIPTION NOTES). Historical ProviderMD Taking Active carvedilol (Coreg) 12.5 mg tablet [id number] Yes Take 12.5 mg by mouth with breakfast and with evening meal. Historical ProviderMD Taking Active cholecalciferol (D3-5) 5,000 Units tablet [id number] Yes Take 1 tablet every day by oral route. Historical ProviderMD Taking Active furosemide (Lasix) 80 mg tablet [id number] Yes Take 80 mg by mouth two times daily. Historical Provider, Taking Active insulin glargine (Lantus) 100 unit/mL injection vial [id number] Yes Inject 60 Units under the skin in the morning. Historical ProviderMD Taking Active insulin lispro (HUMALOG KWIKPEN INSULIN SUBQ) [id number] Yes Inject 10 Units under the skin with breakfast, with lunch, and with evening meal. Historical ProviderMD Taking Active levothyroxine (Synthroid, Levoxyl) 100 mcg tablet [id number] Yes Take 1 tablet every day by oral route. Historical ProviderMD Taking Active polyethylene glycol (GoLYTELY) 236-22.74-6.74 -5.86 gram solution [id number] For day 2 of 2 day prep Ermias Goodrich NP Active polyethylene glycol (GoLYTELY) 236-22.74-6.74 -5.86 gram solution [id number] No For day 1 of 2 day prep Patient not taking: Reported on 07/11/2024 Ermias Goodrich NP Not Taking Flag for Review tadalafil (Cialis) 20 mg tablet [id number] Take 1 tablet (20 mg) by mouth if needed each day for erectile dysfunction. Adams Tate NP 04/27/23 0892 testosterone 1.62 % (20.25 mg/1.25 gram) gel in packet [id number] Yes APPLY 1 PACKET DIRECTED ONCE DAILY [...] of left foot Type 2 diabetes mellitus ([facility]/HCC) Charcot's joint of foot Essential hypertension Acquired hypothyroidism Hyperlipidemia Vitamin D deficiency Libido, decreased Erectile dysfunction Hypogonadism male Diabetic neuropathic arthropathy ([facility]/HCC) Diabetic neuropathy ([facility]) End stage renal disease ([facility]) Glaucoma Hypoglycemia due to type 2 diabetes mellitus ([facility]) Iron deficiency anemia 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, 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, trunk assisted current use of insulin ([facility]) Microalbuminuria Mild left ventricular systolic dysfunction Morbid obesity ([facility]/HCC) Obstructive sleep apnea syndrome Osteomyelitis ([facility]/HCC) Polyneuropathy due to type 2 diabetes mellitus ([facility]) Ulcer of right foot with fat layer exposed ([facility]) Pure hypercholesterolemia Disorder of adrenal gland ([facility]) Type 2 diabetes mellitus with 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 edema, unspecified eye ([facility]) Peripheral vascu (more content not included)...[facility] NotePre-Transplant Kidney Evaluation Surgery Consultation PCP: DO Ross Dhillon Referring: Ada Uriostegui Preferred Pharmacy: [id number] [address] [place] [phone] Organ: Kidney Subjective Visit Vitals BP 134/69 [...] Other reaction(s): Unknown Adhesive Rash Haloperidol Anxiety Kimble Oil GI intolerance Runny nose, watery eyes Medication Documentation Review Audit Reviewed by Sita Danielson MA (Supervisor Capacitor Processing) on 07/11/24 at 0808 Medication Order Taking? Sig Documenting Provider Last Dose Status anastrozole (Arimidex) 1 mg chemo tablet [id number] Yes Take 1 tablet (1 mg total) by mouth in the morning Swallow whole with a drink of water. Adams Tate NP Taking Active aspirin 81 mg chewable tablet [id number] Yes Chew 1 tablet (81 mg) in the morning. Pedro Alvarez MD Taking Active atorvastatin (Lipitor) 20 mg tablet [id number] Yes Take 1 tablet every day by oral route. Zia Harden MD Taking Active b complex 0.4 mg tablet [id number] Yes Take 1 tablet by mouth in the morning and at bedtime. Zia Harden MD Taking Active calcitriol (Rocaltrol) 0.25 mcg capsule [id number] Yes Take 0.25 mcg by mouth in the morning. Zia Harden MD Taking Active calcium acetate (Phoslo) 667 mg capsule [id number] Yes take 2 capsules by mouth with meals three times a day then take 1... (REFER TO PRESCRIPTION NOTES). Zia Harden MD Taking Active carvedilol (Coreg) 12.5 mg tablet [id number] Yes Take 12.5 mg by mouth with breakfast and with evening meal. Zia Harden MD Taking Active cholecalciferol (D3-5) 5,000 Units tablet [id number] Yes Take 1 tablet every day by oral route. Zia Harden MD Taking Active furosemide (Lasix) 80 mg tablet [id number] Yes Take 80 mg by mouth two times daily. Zia Harden MD Taking Active insulin glargine (Lantus) 100 unit/mL injection vial [id number] Yes Inject 60 Units under the skin in the morning. Zia Harden MD Taking Active insulin lispro (HUMALOG KWIKPEN INSULIN SUBQ) [id number] Yes Inject 10 Units under the skin with breakfast, with lunch, and with evening meal. Zia Harden MD Taking Active levothyroxine (Synthroid, Levoxyl) 100 mcg tablet [id number] Yes Take 1 tablet every day by oral route. Zia Harden MD Taking Active polyethylene glycol (GoLYTELY) 236-22.74-6.74 -5.86 gram solution [id number] For day 2 of 2 day prep Ermias Goodrich NP Active polyethylene glycol (GoLYTELY) 236-22.74-6.74 -5.86 gram solution [id number] No For day 1 of 2 day prep Patient not taking: Reported on 07/11/2024 Ermias Goodrich NP Not Taking Flag for Review tadalafil (Cialis) 20 mg tablet [id number] Take 1 tablet (20 mg) by mouth if needed each day for erectile dysfunction. Adams Tate NP 04/27/23 0350 testosterone 1.62 % (20.25 mg/1.25 gram) gel in packet [id number] Yes APPLY 1 PACKET DIRECTED ONCE DAILY [...] of left foot Type 2 diabetes mellitus ([facility]/HCC) Charcot's joint of foot Essential hypertension Acquired hypothyroidism Hyperlipidemia Vitamin D deficiency Libido, decreased Erectile dysfunction Hypogonadism male Diabetic neuropathic arthropathy ([facility]/HCC) Diabetic neuropathy ([facility]/HCC) End stage renal disease ([facility]/HCC) Glaucoma Hypoglycemia due to type 2 diabetes mellitus ([facility]/HCC) Iron deficiency anemia 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, 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, 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 ([facility]/HCC) Microalbuminuria Mild left ventricular systolic dysfunction Morbid obesity ([facility]/HCC) Obstructive sleep apnea syndrome Osteomyelitis ([facility]/HCC) Polyneuropathy due to type 2 diabetes mellitus ([facility]/HCC) Ulcer of right foot with fat layer exposed ([facility]/HCC) Pure hypercholesterolemia Disorder of adrenal gland ([facility]/HCC) Type 2 diabetes mellitus with 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 edema, unspecified eye (CMS/HCC) Peripheral vas (more content not included)...[facility] 07-11-2024 NoteTransplant Nutrition Assessment Name: Evans Forte : 1970 Assessment date: [...] years, intentional with diet changes. Food Allergy: Kimble seeds Current diet: Renal diet. No supplements . High protein and vegetables. Nutrition/Diet: Most meals eaten at home. Diabetes Management: 60 units lantus and humalog 10units TID. Checks blood sugars often (has a dexcom). A1C 6.3% Diet Recall Breakfast: Skips on dialysis days or has eggs. Lunch: Leola or a salad. Dinner: Variety of meats, [...] changes to expect post transplant. Gerri Powell RDUnSelect Medical [facility]11-05-2024 [id number] Evans Forte 1970 M Date Provider Department Center 07/11/2024 REFUGIO CASTRO None Family History Problem Relation Age of [...] Grandmother Daughter Father's Brother Alive Level of Service:47809 [place] OFFICE/OUTPATIENT ESTABLISHED HIGH MDM 40 MIN Reason for Visit and Comments: Kidney Eval [[id number]][facility]11-05-2024 Note Identifying Information Name: Evans Forte : 1970 Assessment date: 07/11/2024 Transplant type: Kidney Transplant Evaluation - 10/12/2019 Primary language: [place] Scientology/spirituality: Shinto People present at assessment: sister Caryn Carroll Do you have any yazidism, ethical or personal objections to accepting blood products, surgery and/or transplant? No Citizenship Where were you born? In the [place] in [facility] Where do you currently live or are staying? [facility] Is this greater than 3-4 hours from [facility]? No. 1 Hour Family Background and Supportive Relationships Mother: COD: Breast Cancer with mets to brain. Father: COD: Heart attack Siblings: 1 sister: Caryn Becerra Children: Biological Number of children, living or (UNOS question): 1 Names, age, health status, relationship, address: [place] , healthy, [place], daughter. Marital/relationship status: for 30 years Household composition: Patient, , step-grandaughter. Are there any current or past significant life changes or traumatic events? No Support / Caregiver Plans Who will be your primary caregiver? 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 Who will be your secondary caregiver(s)? sibling Contact #: Caryn [phone] Health status & availability: Healthy, doesn't work, [...] type of work do you/did you do? [employer]. Date of last employment: April 2022 What are your thoughts about returning to work after transplant? Some form a of work. I have a [employer] drivers license. Disability Are you on any [...] Subscriber Name Rel Member # Group # [facility] - U* EVANS FORTE Self [id number] 125 [address] [address] [facility] MED* [employer] Self [id number] [address] [address] Are you aware of a coordination of benefits with your insurance and Medicare (if applicable)? no- mailing Medicare and ESRD info to patient. Are you receiving assistance through [facility] JANICE Program: No Medication Coverage [...] 03/06/2023 Peritoneal [facility] ([employer]). Dialysis Center Information [facility] ([employer]). Address: [place], [address] Dialysis Schedule: MWF, 5:30AM, 4H15M, a few [...] adhere to your diet? Yes HD diet, p (more content not included)... [facility]10-24-2024 History of Present illness Narrative* Gi Mondragon DPM - 06/29/2024 9:30 AM EDT Images from the original note were not included. HPI: Patient presents in office today for ulcer recheck. He continues using the Medihoney over the woundbed and has noticed improvement. Pt states he gets clear pink drainage. The ulcer under the big toeseems to have more callous and has opened. No other concerns. Exam: General Examination: GENERAL APPEARANCE: awake, aware of surroundings, in no acute distress Vascular: DORSALIS PEDIS PULSE: 2/4 right POSTERIOR TIBIAL PULSE: 2/4 right TEMPERATURE GRADIENT: warm to cool EDEMA: to the medial and lateral ankle right CAPILLARY FILLING TIME(sec): capillary fill intact bilateral digits less than 3 secs Neurologic: VIBRATORY: decreased to the hallux IPJ bialteral SEMMES-YAIMA 5.07 MONOFILAMENT: decreased to the plantar ball of the foot and toes Dermatologic: SKIN FINDINGS: normal HYPERKERATOSIS: around the ulceration sites plantar right foot NAIL PATHOLOGY: digits 1-5 bilateral are intact SKIN PATHOLOGY: thin, hyperkeratosis around the ulceration sites. Ulcer: LOCATION: plantar sub 1st MPJ right THICKNESS: partial STAGE: limited to breakdown of skin PREVIOUS MEASUREMENT: closed PRE DEBRIDEMENT SIZE: 0.2cm x 0.3cm x 0.1cm POST DEBRIDEMENT SIZE: 0.4cm x 0.6cm x 0.1cm TRACKING: none DRAINAGE: serous MALODOR: none BASE: hyperkeratosis WOUND EDGES: There is a very small blood blister proximal medial to the prior ulceration site. I did open and drain this and no deep opening is noted or extension to the prior ulceration site SURROUNDING TISSUE: intact SURROUNDING SOI: none Ulcer: LOCATION: plantar medial right heel THICKNESS: partial STAGE: fat layer exposed PREVIOUS MEASUREMENT: 1.2cm x 0.5cm x 0.2cm PRE DEBRIDEMENT SIZE: 0.4cm x 0.3cm x 0.2cm POST DEBRIDEMENT SIZE: 1cm x 0.4cm x 0.2cm TRACKING: none DRAINAGE: serous MALODOR: none BASE: granular WOUND EDGES: significant hyperkeratosis SURROUNDING TISSUE: intact SURROUNDING SOI: none Orthopedic: FOOT MORPHOLOGY: neutral JOINT RANGE OF MOTION: without pain or crepitus MUSCLE STRENGTH: 5/5 for all pedal groups tested Assessment: Ulceration sub 1st MPJ right Ulceration right heel Diabetes with foot ulceration Diabetes with kidney disease Plan: 1. Ulceration to the right heel and 1st MPJ was evaluated at today's visit. 2. Wound debridement was performed of the ulceration site. As patient has full neuropathy, there isno need for local anesthesia. I did excise nonviable tissue, callus, skin, and slough of ulcerationsite. This was performed with a tissue nipper and will be one of possibly staged series of ulceration and debridements on a weekly basis pending medical necessity. Pedal pain was none. Hemostasis was obtained with pressure. 3. Patient was instructed on continued dressing changes to the ulceration site with Collagen. They should continue with use of the walking boot for offloading/pressure reduction. Patient does have [facility] for dressing changes. Encouraged him to keep the dressing clean, dry and intact to the ulceration s ites and reduce pressure as much as possible. 4. Patient was advised if they notice any worsening to the ulceration site including signs of infection, N/F/V/C to call the office for an urgent appointment or go to the nearest emergency room. 5. RTC: 2-3 weeks. documented in this encounterTexas County Memorial [id number] NoteUT Cardiology - [facility] Heart and Vascular Center Subjective Evans Forte is a [...] anemia 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, 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, trunk assisted current use of insulin (CMS/HCC) Microalbuminuria Mild [...] Behavior: Behavior is cooperative. Judgment: Judgment normal. (more content not included)...[facility]10-15-2024 NotePatient: Evans Forte Procedure Summary Date: 06/20/24 Room / Location: [facility] Anesthesia Start: 1056 Anesthesia Stop: 1201 Procedure: SURVEILLANCE COLONOSCOPY Diagnosis: Screen for colon cancer Scheduled Providers: Anya Henley MD; Vinay Avila MD Responsible Provider: [...] PACU per anesthesia protocol. No notable events documented.[facility]10-15-2024 Note Patient: Evans Forte Procedure Information Date/Time: 06/20/24 1200 Scheduled providers: Anya Henley MD; Vinay Avila MD Procedure: SURVEILLANCE COLONOSCOPY Location: [facility] Relevant Problems Anesthesia (+) Obstructive sleep apnea syndrome Cardio (+) Essential hypertension Endo (+) Acquired hypothyroidism (+) Type 2 diabetes mellitus (CMS/HCC) /Renal (+) End stage renal disease ([facility]/HCC) Other (+) Charcot's joint of foot (+) Osteomyelitis (CMS/HCC) (+) Osteomyelitis of left foot ([facility]/HCC) Clinical information reviewed: Tobacco Allergies Meds Med [...] products. Plan discussed with resident. Additional Equipment RequestsUnSelect [facility]10-[facility]-2024 Note Medication resent to patients preferred pharmacy as requested.[facility]10-03-2024 History of Present illness Narrative* Gi Mondragon DPM - 06/08/2024 11:15 AM EDT Images from the original note were not included. HPI: Patient presents in office today for ulcer recheck. He continues using the Medihoney over the woundbed and has noticed improvement. Pt states he gets clear pink drainage. No other concerns. Exam: General Examination: GENERAL APPEARANCE: awake, aware of surroundings, in no acute distress Vascular: DORSALIS PEDIS PULSE: 2/4 right POSTERIOR TIBIAL PULSE: 2/4 right TEMPERATURE GRADIENT: warm to cool EDEMA: to the medial and lateral ankle right CAPILLARY FILLING TIME(sec): capillary fill intact bilateral digits less than 3 secs Neurologic: VIBRATORY: decreased to the hallux IPJ bialteral SEMMES-YAIMA 5.07 MONOFILAMENT: decreased to the plantar ball of the foot and toes Dermatologic: SKIN FINDINGS: normal HYPERKERATOSIS: around the ulceration sites plantar right foot NAIL PATHOLOGY: digits 1-5 bilateral are intact SKIN PATHOLOGY: thin, hyperkeratosis around the ulceration sites. Ulcer: LOCATION: plantar sub 1st MPJ right THICKNESS: partial STAGE: limited to breakdown of skin PREVIOUS MEASUREMENT: 0.2cm x 0.3cm x 0.1cm PRE DEBRIDEMENT SIZE: closed POST DEBRIDEMENT SIZE: closed TRACKING: none DRAINAGE: serous MALODOR: none BASE: hyperkeratosis WOUND EDGES: There is a very small blood blister proximal medial to the prior ulceration site. I did open and drain this and no deep opening is noted or extension to the prior ulceration site SURROUNDING TISSUE: intact SURROUNDING SOI: none Ulcer: LOCATION: plantar medial right heel THICKNESS: partial STAGE: fat layer exposed PREVIOUS MEASUREMENT: 1.6cm x 0.6 x 0.2cm PRE DEBRIDEMENT SIZE: 0.8cm x 0.3cm x 0.2cm POST DEBRIDEMENT SIZE: 1.2cm x 0.5cm x 0.2cm TRACKING: none DRAINAGE: serous MALODOR: none BASE: granular WOUND EDGES: significant hyperkeratosis SURROUNDING TISSUE: intact SURROUNDING SOI: none Orthopedic: FOOT MORPHOLOGY: neutral JOINT RANGE OF MOTION: without pain or crepitus MUSCLE STRENGTH: 5/5 for all pedal groups tested Assessment: Ulceration sub 1st MPJ right Ulceration right heel Diabetes with foot ulceration Diabetes with kidney disease Plan: 1. Ulceration to the right heel and 1st MPJ was evaluated at today's visit. 2. Wound debridement was performed of the ulceration site. As patient has full neuropathy, there isno need for local anesthesia. I did excise nonviable tissue, callus, skin, and slough of ulcerationsite. This was performed with a tissue nipper and will be one of possibly staged series of ulceration and debridements on a weekly basis pending medical necessity. Pedal pain was none. Hemostasis was obtained with pressure. 3. Patient was instructed on continued dressing changes to the ulceration site with Collagen. They should continue with use of the walking boot for offloading/pressure reduction. Patient does have [facility] for dressing changes. Encouraged him to keep the dressing clean, dry and intact to the ulceration s ites and reduce pressure as much as possible. 4. Patient was advised if they notice any worsening to the ulceration site including signs of infection, N/F/V/C to call the office for an urgent appointment or go to the nearest emergency room. 5. RTC: 2-3 weeks. documented in this encounterTexas County Memorial [id number] Telephone encounter Note* Telephone Encounter - Gi Mondragon DPM - 05/31/2024 2:20 PM EDT Refill request was approved. Prescription was sent to his preferred pharmacy. [facility] [id number] Miscellaneous Notes* Telephone Encounter - Gi Mondragon DPM - 05/31/2024 2:20 PM EDT Refill request was approved. Prescription was sent to his preferred pharmacy. * Telephone Encounter - Sophia Martini MA - 05/30/2024 2:02 PM EDT Patient called and stated that he would like a refill of Pregabalin. Please advise, thank you. documented in this encounterTexas County Memorial [id number] Telephone encounter Note* Telephone Encounter - Sophia Martini MA - 05/30/2024 2:02 PM EDT Patient called and stated that he would like a refill of Pregabalin. Please advise, thank you. [facility] Memorial [id number] NoteSubjective Patient ID: Evans Forte is a 54 y.o. male who presents for Follow-up (Lab results ). HPI 05.26.24 Pt here for office visit with his . Pt established with Dr Clay for hypogonadism, ED and pending Renal Transplant list. Pt is having wound care to right foot at this time. ESRD treated with Dialysis 3 x week locally in [place]. Pt labs reviewed: T Levels: 05/23/24 373 01/05/24: 293; 06/03/23: 330; 04/27/23: 397; 03/25/23: 470; 02/23/23: 556; 11/18/2022; 129 04/07/22 178 Estradial: 05/23/24 5 01/05/24 29; 05/31/23: 17; 03/25/23: 15.4; 02/23/23: 22.6 PSA: 05.23.24 2.3 01/05/24 0.5; 06/03/23: 1.0; 04/27/23: 2.3; [...] instructions Trimix: adverse/side effects. Order fax to [facility]. 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 No CP or SOB. No N/V/D. No abd/flank pain. Pt continues with better level of fatigue. 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 Plan: Follow up Trimix Trial with Meds. 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 Urination: - amount of urine made: [...] have kids: No - any previous fertility (more content not included)...[facility]09-12[facility] History of Present illness Narrative* Gi Mondragon DPM - 05/18/2024 10:00 AM EDT Images from the original note were not included. HPI: Patient presents in office today for ulcer recheck. He continues using the Medihoney over the woundbed and has noticed improvement. Pt states he gets clear pink drainage. No other concerns. Exam: General Examination: GENERAL APPEARANCE: awake, aware of surroundings, in no acute distress Vascular: DORSALIS PEDIS PULSE: 2/4 right POSTERIOR TIBIAL PULSE: 2/4 right TEMPERATURE GRADIENT: warm to cool EDEMA: to the medial and lateral ankle right CAPILLARY FILLING TIME(sec): capillary fill intact bilateral digits less than 3 secs Neurologic: VIBRATORY: decreased to the hallux IPJ bialteral SEMMES-YAIMA 5.07 MONOFILAMENT: decreased to the plantar ball of the foot and toes Dermatologic: SKIN FINDINGS: normal HYPERKERATOSIS: around the ulceration sites plantar right foot NAIL PATHOLOGY: digits 1-5 bilateral are intact SKIN PATHOLOGY: thin, hyperkeratosis around the ulceration sites. Ulcer: LOCATION: plantar sub 1st MPJ right THICKNESS: partial STAGE: limited to breakdown of skin PREVIOUS MEASUREMENT: 0.2cm x 0.3cm x 0.1cm PRE DEBRIDEMENT SIZE: closed POST DEBRIDEMENT SIZE: closed TRACKING: none DRAINAGE: serous MALODOR: none BASE: hyperkeratosis WOUND EDGES: There is a very small blood blister proximal medial to the prior ulceration site. I did open and drain this and no deep opening is noted or extension to the prior ulceration site SURROUNDING TISSUE: intact SURROUNDING SOI: none Ulcer: LOCATION: plantar medial right heel THICKNESS: partial STAGE: fat layer exposed PREVIOUS MEASUREMENT: 1.7cm x 0.7cm x 0.2cm PRE DEBRIDEMENT SIZE: 1.3cm x 0.5cm x 0.2cm POST DEBRIDEMENT SIZE: 1.6cm x 0.6 x 0.2cm TRACKING: none DRAINAGE: serous MALODOR: none BASE: granular WOUND EDGES: significant hyperkeratosis SURROUNDING TISSUE: intact SURROUNDING SOI: none Orthopedic: FOOT MORPHOLOGY: neutral JOINT RANGE OF MOTION: without pain or crepitus MUSCLE STRENGTH: 5/5 for all pedal groups tested Assessment: Ulceration sub 1st MPJ right Ulceration right heel Diabetes with foot ulceration Diabetes with kidney disease Plan: 1. Ulceration to the right heel and 1st MPJ was evaluated at today's visit. 2. Wound debridement was performed of the ulceration site. As patient has full neuropathy, there isno need for local anesthesia. I did excise nonviable tissue, callus, skin, and slough of ulcerationsite. This was performed with a tissue nipper and will be one of possibly staged series of ulceration and debridements on a weekly basis pending medical necessity. Pedal pain was none. Hemostasis was obtained with pressure. 3. Patient was instructed on continued dressing changes to the ulceration site with Collagen. They should continue with use of the walking boot for offloading/pressure reduction. Patient does have [facility] for dressing changes. Encouraged him to keep the dressing clean, dry and intact to the ulceration s ites and reduce pressure as much as possible. 4. Patient was advised if they notice any worsening to the ulceration site including signs of infection, N/F/V/C to call the office for an urgent appointment or go to the nearest emergency room. 5. RTC: 2 weeks. documented in this encounterTexas County Memorial [id number] History of Present illness Narrative* Idania Ricketts DO - 05/16/2024 12:35 PM EDTAssociated Problem(s): Anxiety Discussed at length with pt and his . Will start lexapro. He is also going to start counseling.Ok to use ativan as needed as we are working on getting lexapro into his system. He is to call withany problems or not improving. * Idania Ricketts DO - 05/16/2024 9:15 AM EDT Images from the original note were not included. Evans Forte is a 54 y.o. male presents with chief complaint of Anxiety HPI: [facility] Insurance will no longer cover Lyrica- wondering if he can be put back on gabapentin. Pt here for anxiety [facility] [place] [facility] [place] d/t panic attack. Was prescribed Ativan Filled Ativan last night and took one dose last night. Pt states Ativan did help. Count [facility] will becontacting him to scheduled appt with counselor. This past week he has had several panic attacks a day. Not sure what triggers them, they just happen. Denies chest pain/SOB during panic attacks. When he gets the attacks his heart will start racing, decreased focus, inability to sit still. Thishas been coming on more over the last several months but worse this past week. Normally can manage on his own but struggling lately. Struggles with dialysis. SUBJECTIVE: See medication list at the end of the note. Allergies Allergen Reactions Latex Rash Other Reaction(s): Unknown If on for long periods of time Vancomycin Hives Other Reaction(s): Unknown Other reaction(s): Unknown Haloperidol Anxiety Kimble Oil GI intolerance Runny nose, watery eyes Wound Dressing Adhesive Rash REVIEW OF SYMPTOMS: Review of Systems Constitutional: Positive for fatigue. Musculoskeletal: Positive for arthralgias and back pain. Neurological: Positive for weakness and numbness. Psychiatric/Behavioral: Positive for agitation, decreased concentration and sleep disturbance. Negative for dysphoric mood. The patient is nervous/anxious. OBJECTIVE: 05/16/2024 9:17 AM 02/25/2024 1:36 PM 11/29/2023 9:15 AM Vitals BMI 40.37 kg/m2 41.47 kg/m2 41.47 kg/m2 Systolic 154 122 148 Diastolic 62 78 82 Heart Rate 81 75 85 Temp 96.9 F 98.3 F 98.2 F Height (in) 6' 2 6' 2 6' 2 Weight (lb) 314.4 323 323 Visit Report Report Report Report Physical Exam Constitutional: General: He is not in acute distress. Appearance: Normal appearance. He is obese. Cardiovascular: Rate and Rhythm: Normal rate and regular rhythm. Heart sounds: No murmur heard. No friction rub. No gallop. Pulmonary: Breath sounds: Normal breath sounds. No wheezing, rhonchi or rales. Musculoskeletal: General: No swelling. Neurological: Mental Status: He is alert. ASSESSMENT AND PLAN: Problem List Items Addressed This Visit Anxiety Discussed at length with pt and his . Will start lexapro. He is also going to start counseling.Ok to use ativan as needed as we are working on getting lexapro into his system. He is to call withany problems or not improving. Relevant Medications escitalopram (Lexapro) 10 MG tablet Type 2 diabetes mellitus with peripheral neuropathy (CMS/HCC) - Primary Relevant Medications gabapentin (Neurontin) 300 MG capsule (Start on 05/17/2024) Follow up for Next scheduled follow-up. Patient's Medications New Prescriptions ESCITALOPRAM (LEXAPRO) 10 MG TABLET Take 1 tablet (10 mg) by mouth Daily GABAPENTIN (NEURONTIN) 300 MG CAPSULE Take 1 capsule (300 mg) by mouth 3 (three) times a week Afterdialysis Previous Medications ANASTROZOLE (ARIMIDEX) 1 MG CHEMO TABLET take 1 tablet by mouth every morning (SWALLOW WHOLE WITH ADRINK OF WATER) ATORVASTATIN (LIPITOR) 20 MG TABLET Take 1 tablet (20 mg) by mouth in the morning. B COMPLEX-FOLIC ACID TABLET Take 1 tablet by mouth in the morning and 1 tablet in the evening. CALCITRIOL (ROCALTROL) 0.25 MCG CAPSULE Take 0.25 mcg by mouth in the morning. CALCIUM ACETATE (PHOSLO) 667 MG CAPSULE take 2 capsules by mouth with meals three times a day then take 1... (REFER TO PRESCRIPTION NOTES). CAPSAICIN-CLEANSING GEL (QUTENZA, 4 PATCH,) 8 % PATCH Apply 1 patch topically every 3 (three) months Follow instructions to prepare site. Prescriber to taqueria area. Once applied, remove after 30 minutes and clean area with supplied gel. CARVEDILOL (COREG) 6.25 MG TABLET Take 6.25 mg by mouth in the morning and 6.25 mg in the evening. Take with meals. CHOLECALCIFEROL (D3-5) 5,000 UNITS TABLET Daily. CONTINUOUS BLOOD GLUC ACOUSTIC INTELLIGENCE SPECIALIST (DEXCOM G7 ACOUSTIC INTELLIGENCE SPECIALIST) DEVICE 1 (one) time each day at the same time. CONTINUOUS BLOOD GLUC SENSOR (DEXCOM G7 SENSOR) MISC as directed every 10 days for 90 days FUROSEMIDE (LASIX) 40 MG TABLET Take 2 tablets (80 mg) by mouth in the morning and 2 tablets (80 mg) before bedtime. GLUCAGON (GVOKE HYPOPEN) 1 MG/0.2ML INJECTION Daily HYDROCODONE-ACETAMINOPHEN (NORCO) 5-325 MG TABLET Take 1 tablet by mouth every 6 (six) hours if needed for severe pain for up to 5 days INSULIN GLARGINE (LANTUS SOLOSTAR) 100 UNIT/ML PEN Inject 60 Units under the skin Daily INSULIN LISPRO (HUMALOG KWIKPEN) 100 UNIT/ML INJECTION INJECT 10 UNITS UNDER THE SKIN WITH SMALL MEALS AND 20 UNITS WITH LARGE MEALS PLUS CORRECTION 1:30>150 MG/DL MAX DAILY DOSE OF 100 UNITS LEVOTHYROXINE (SYNTHROID, LEVOXYL) 100 MCG TABLET Take 1 tablet (100 mcg) by mouth in the morning. Take before meals. LORAZEPAM (ATIVAN) 1 MG TABLET Every 8 hours ONDANSETRON ODT (ZOFRAN-ODT) 4 MG DISINTEGRATING TABLET Take 2 tablets (8 mg) by mouth every 8 (eight) hours if needed for nausea or vomiting TESTOSTERONE 1.62 % GEL apply 2 PUMPS topically every morning TIRZEPATIDE (MOUNJARO) 7.5 MG/0.5ML SOLUTION PEN-INJECTOR Inject 7.5 mg under the skin 1 (one) timeper week TRAZODONE (DESYREL) 50 MG TABLET Take 1 tablet (50 mg) by mouth at bedtime XPHOZAH 30 MG TABLET Take 30 mg by mouth Daily Modified Medications No medications on file Discontinued Medications PREGABALIN (LYRICA) 150 MG CAPSULE Take 1 capsule (150 mg) by mouth in the morning and 1 capsule (150 mg) before bedtime. I have reviewed and reconciled the history and medication list with the patient today. documented in this encounterTexas County Memorial [id number] History of Present illness Narrative* Gi Mondragon DPM - 05/04/2024 9:30 AM EDT Images from the original note were not included. HPI: Patient presents in office today for ulcer recheck. He has been using the Medihoney over the wound bed and has noticed improvement. Patient did find a small amount of improvement with the Qutenza. Noother concerns. Exam: General Examination: GENERAL APPEARANCE: awake, aware of surroundings, in no acute distress Vascular: DORSALIS PEDIS PULSE: 2/4 right POSTERIOR TIBIAL PULSE: 2/4 right TEMPERATURE GRADIENT: warm to cool EDEMA: to the medial and lateral ankle right CAPILLARY FILLING TIME(sec): capillary fill intact bilateral digits less than 3 secs Neurologic: VIBRATORY: decreased to the hallux IPJ bialteral SEMMES-YAIMA 5.07 MONOFILAMENT: decreased to the plantar ball of the foot and toes Dermatologic: SKIN FINDINGS: normal HYPERKERATOSIS: around the ulceration sites plantar right foot NAIL PATHOLOGY: digits 1-5 bilateral are intact SKIN PATHOLOGY: thin, hyperkeratosis around the ulceration sites. Ulcer: LOCATION: plantar sub 1st MPJ right THICKNESS: partial STAGE: limited to breakdown of skin PREVIOUS MEASUREMENT: 0.2cm x 0.3cm x 0.1cm PRE DEBRIDEMENT SIZE: closed POST DEBRIDEMENT SIZE: 0.1cm x 0.3cm x 0.1cm TRACKING: none DRAINAGE: serous MALODOR: none BASE: granular WOUND EDGES: hyperkeratosis SURROUNDING TISSUE: intact SURROUNDING SOI: none Ulcer: LOCATION: plantar medial right heel THICKNESS: partial STAGE: fat layer exposed PREVIOUS MEASUREMENT: 2.2cm x 0.9cm x 0.2cm PRE DEBRIDEMENT SIZE: 1.3cm x 0.5cm x 0.2cm POST DEBRIDEMENT SIZE: 1.7cm x 0.7cm x 0.2cm TRACKING: none DRAINAGE: serous MALODOR: none BASE: granular WOUND EDGES: significant hyperkeratosis SURROUNDING TISSUE: intact SURROUNDING SOI: none Orthopedic: FOOT MORPHOLOGY: neutral JOINT RANGE OF MOTION: without pain or crepitus MUSCLE STRENGTH: 5/5 for all pedal groups tested Assessment: Ulceration sub 1st MPJ right Ulceration right heel Diabetes with foot ulceration Diabetes with kidney disease Plan: 1. Ulceration to the right heel and 1st MPJ was evaluated at today's visit. 2. Wound debridement was performed of the ulceration site. As patient has full neuropathy, there isno need for local anesthesia. I did excise nonviable tissue, callus, skin, and slough of ulcerationsite. This was performed with a tissue nipper and will be one of possibly staged series of ulceration and debridements on a weekly basis pending medical necessity. Pedal pain was none. Hemostasis was obtained with pressure. 3. Patient was instructed on continued dressing changes to the ulceration site with Collagen. They should continue with use of the walking boot for offloading/pressure reduction. Patient does have C for dressing changes. Encouraged him to keep the dressing clean, dry and intact to the ulceration s ites and reduce pressure as much as possible. 4. Patient was advised if they notice any worsening to the ulceration site including signs of infection, N/F/V/C to call the office for an urgent appointment or go to the nearest emergency room. 5. RTC: 2 weeks. documented in this encounterTexas County Memorial [id number] NotePatient LVM for TC asking inquiring about scheduling transplant re-evaluation and orders for updated stress test and colonoscopy. TC LVM for patient to discuss available dates and times and if he wants to complete the stress and colonoscopy here at [facility] or locally in [place]. Awaiting response.[facility]08-22-2024 Telephone encounter Note* Telephone Encounter - Melinda Dailey LPN - 04/27/2024 2:01 PM EDT Pt was on mounjaro 7.5 and it was unavailable and was switched to ozepmic 2mg. Pt states he is not losing weight and would like to go back to mounjaro. Okay to send in? [facility] [id number] Miscellaneous Notes* Telephone Encounter - Melinda Dailey LPN - 04/27/2024 2:01 PM EDT Pt was on mounjaro 7.5 and it was unavailable and was switched to ozepmic 2mg. Pt states he is not losing weight and would like to go back to mounjaro. Okay to send in? * Telephone Encounter - Anayeli Mack LPN - 04/26/2024 4:00 PM EDT LVM that insurance will no long pay for novolog and asking for alternative. Also asking for Mounjaro 7.5mg documented in this encounterTexas County Memorial [id number] Telephone encounter Note* Telephone Encounter - Anayeli Mcak LPN - 04/26/2024 4:00 PM EDT LVM that insurance will no long pay for novolog and asking for alternative. Also asking for Mounjaro 7.5mg [facility] [id number] Progress note Author Gi Mondragon [facility] November 23, 2023 3:53pm Note Date/Time November 23, 2023 3:5 3pm [facility] [address] [place] [address] Podiatry Progress Note Signed Patient: Evans Forte MR#: [id number] : 1970 Acct:[id number] Age/Sex: 53 / M Adm Date: 4 Loc: Room: [address] [place] [address] Type: ADM IN Attending Dr: Amy Escudero DO Copies to: ~ Subjective Subjective Date of Service: Date of Service: 11/23/2023 Time of Service: 15:51 Narrative: Mr. Forte is a 53 year old male who was admitted due to symptoms of sepsis. Patient has a large ulceration on the bottom of the right great toe and heel. He has been following with a community support associate and family. Patient states that the ulcerations are keeping him from being able to have a kidney transplant. He started to notice some redness along the right ritter and there was concern for cellulitis. Patient then started to develop some symptoms with nausea and vomiting which prompted him to come to the emergency room. Podiatry is consulted for evaluation of the ulcerations to the right foot. He currently denies any pain related to the ulcerations. Exam Physical Exam Vital Signs: Temp Pulse Resp BP Pulse Ox O2 Del Method 98 F 77 18 172/79 H 98 Room Air 11/23/23 14:47 11/23/23 14:47 11/23/23 14:47 11/23/23 14:47 11/23/23 14:47 11/23/23 14:47 Narrative: General: Patient is seen at bedside and is awake and aware and in no acute distress. He maintained a conversation on the phone during the entirety of my visit. Vascular: DP and PT pulses are palpable to the right lower extremity. There is evidence of cellulitis along the anterior right ritter but There is no evidence oferythema or cellulitis around the ulcerations to the right foot. Neurology: Patient has a diabetic peripheral neuropathy with autonomic, sensory and motor components. Dermatology: Patient has a small ulceration approximately 1 and 1.5 cm long plantar sub-first MPJ right. There is a granular base with no evidence of active pustular drainage, no malodor noted. There is no surrounding cellulitis or erythema noted. Surrounding hyperkeratosis noted due to pressure. Large ulceration along the plantar medial aspect of the right heel proximately 6 7 cm in length x 4 cm in width. Again ulceration is very superficial with granular base. Significant amount of surrounding hyperkeratosis was debrided. There is no evidence of cellulitis, malodor or active drainage noted to the left heel. No areas of the deep probing or palpation down to bone noted to either ulceration site. Radiographs: There is no evidence of the cortical erosions or bone changes to the first metatarsal or medial heel. Patient does have a significant amount of hardware present within the right foot from prior Charcot reconstruction along the medial column as well as screws present along the posterior heel. Assessment/Plan (1) Ulcer of right foot: Plan: MRI did not demonstrate any evidence of osteomyelitis around the ulceration sites. Patient may have cellulitis within the right lower extremity but there is no need for surgical intervention. I did debride the ulcerations yesterday during evaluation and patient can continue with current wound care. We did discuss the importance of offloading in order to reduce pressure to allow for healing and reduce the large hyperkeratosis. Patient will follow-up with his community support associate and family for further wound care. Discussed with hospitalist and patient will be discharged home on a course of oral antibiotics. Okay for discharge per podiatry. Qualifiers: Non-pressure ulcer stage: limited to breakdown of skin Qualified Code(s): L97.511 - Non-pressure chronic ulcer of other part of right foot limited tobreakdown of skin Code(s): L97.519 - Non-pressure chronic ulcer of other part of right foot with unspecified severity (2) Ulcer of right heel: Plan: . Qualifiers: Non-pressure ulcer stage: with fat layer exposed Qualified Code(s): L97.412 - Non-pressure chronic ulcer of right heel and midfoot with fat layer exposed Code(s): L97.419 - Non-pressure chronic ulcer of right heel and midfoot with unspecified severity Plan . Documented By: Gi Mondragon DPM 11/23/23 1 551 Signed By: <Electronically signed by TIARA Mondragon> 11/23/23 1553 [facility] Work Phone: 1(617) 478-785303-19-2024 Consult note Author Gi Mondragon [facility] November 23, 2023 3:51pm Note Date/Time November 22, 2023 5:3 0pm [facility] [address] [place] [address] Podiatry Consult Note Signed Patient: Evans Forte MR#: [id number] : 1970 Acct:[id number] Age/Sex: 53 / M Adm Date: 4 Loc: Room: [address] [place] [address] Type: ADM IN Attending Dr: Amy Escudero DO Copies to: DO Gi Dhillon DPM Yazid Hussein, DO~ HPI Data of Consult Consult Date: 11/22/23 Requesting Physician: Amy Escudero DO Primary Care Provider: Idania Ricketts DO Consult Narrative Reason for consult: Right foot and heel ulceration History of present illness: Mr. Forte is a 53 year old male who was admitted due to symptoms of sepsis. Patient has a large ulceration on the bottom of the right great toe and heel. He has been following with a community support associate and family. Patient states that the ulcerations are keeping him from being able to have a kidney transplant. He started to notice some redness along the right ritter and there was concern for cellulitis. Patient then started to develop some symptoms with nausea and vomiting which prompted him to come to the emergency room. Podiatry is consulted for evaluation of the ulcerations to the right foot. He currently denies any pain related to the ulcerations. Review of Systems Review of Systems All other systems reviewed & are negative unless noted below or in HPI [facility] Medical History (Updated 11/23/23 @ 10:16 by Gi Mondragon DPM) Feeling anxious COVID-19 Chronic kidney disease Hypertensive chronic kidney disease with stage 1 through stage 4 chronic kidney disease, or unspecified chronic kidney disease Chronic kidney disease with end stage renal disease on dialysis due to type 2 diabetes mellitus Acute kidney injury superimposed on CKD Leukocytosis Hypertension Hyperlipidemia End stage renal disease Dependence on renal dialysis Anemia Insulin long-term use Sleep apnea no machine Pancreatitis Hypothyroid Hyperlipidemia Anemia End stage renal disease Cellulitis Hypertension Neuropathy slim feet-tingling Diabetes mellitus, type 2 Surgical History History of cardiac catheter[place] [facility] of orthopedic surgery right foot has 14 screws and 3 plates. Family History Mother Breast cancer Cancer Legacy family hx; cancer Father Myocardial infarction Heart disease Grandparent Breast cancer Daughter Crohn's disease Legacy FamHx Relation: Daughter(s) Social History Smoking Status: Never smoker Tobacco Type: smokeless tobacco Substance Use Type: None Meds Medications and Allergies Allergies latex Allergy (Mild, Verified 11/20/23 18:45) Rash vancomycin Allergy (Unknown, Verified 11/20/23 18:45) Rash haloperidol [From Haldol] Adverse Reaction (Verified 11/20/23 18:45) Anxiety Home Medications atorvastatin 20 mg tablet (Lipitor) 20 mg PO QAM 07/15/18 [History Confirmed 11/20/23] fenofibrate nanocrystallized 145 mg tablet (Tricor) 145 mg PO QAM 04/29/20 [History Confirmed 11/20/23] levothyroxine 100 mcg tablet (Synthroid) 100 mcg PO DAILY.AC.BKFAST 04/29/20 [History Confirmed 11/20/23] carvedilol 25 mg tablet 6.25 mg PO BID 07/29/22 [History Confirmed 11/20/23] insulin regular hum U-500 conc 500 unit/mL(3 mL) subcut pen (Humulin R U-500 (Conc) Insulin Kwikpen) 50 unit subcut BID 07/29/22 [History Confirmed 11/20/23] anastrozole 1 mg tablet 1 mg PO QAM 09/16/23 [History Confirmed 11/20/23] calcitriol 0.25 mcg capsule 0.25 mcg PO DAILY with dialysis 09/16/23 [History Confirmed 11/20/23] furosemide 40 mg tablet (Lasix) 80 mg PO BID 09/16/23 [History Confirmed 11/20/23] testosterone 1 % (50 mg/5 gram) transdermal gel packet 1 packet transdermal DAILY 09/16/23 [History Confirmed 11/20/23] calcium acetate(phosphat bind) 667 mg capsule 2,668 mg PO QAC 10/06/23 [History Confirmed 11/20/23] tirzepatide 5 mg/0.5 mL subcutaneous pen injector (Mounjaro) 5 mg subcut QWEEK 10/06/23 [History Confirmed 11/20/23] cyanocobalamin (vitamin B-12) 1,000 mcg tablet (Vitamin B-12) 1,000 mcg PO DAILY10/18/23 [History Confirmed 11/20/23] pregabalin 150 mg capsule 150 mg PO BID neuropathy pain 10/18/23 [History Confirmed 11/20/23] trazodone 50 mg tablet 50 mg PO QHS PRN insomnia 10/18/23 [History Confirmed 11/20/23] linezolid 600 mg tablet 600 mg PO BID 10 days #20 tabs 11/23/23 [Rx] Exam Physical Exam Vital Signs: Temp Pulse Resp BP Pulse Ox O2 Del Method 98.1 F 70 18 154/75 H 98 Room Air 11/22/23 16:00 11/22/23 16:00 11/22/23 16:00 11/22/23 16:00 11/22/23 16:00 11/22/23 16:00 Narrative: General: Patient is seen at bedside and is awake and aware and in no acute distress. He maintained a conversation on the phone during the entirety of my visit. Vascular: DP and PT pulses are palpable to the right lower extremity. There is evidence of cellulitis along the anterior right ritter but There is no evidence of erythema or cellulitis around the ulcerations to the right foot. Neurology: Patient has a diabetic peripheral neuropathy with autonomic, sensory and motor components. Dermatology: Patient has a small ulceration approximately 1 and 1.5 cm long plantar sub-first MPJ right. There is a granular base with no evidence of active pustular drainage, no malodor noted. There is no surrounding cellulitis or erythema noted. Surrounding hyperkeratosis noted due to pressure. Large ulceration along the plantar medial aspect of the right heel proximately 6 7 cm in length x 4 cm in width. Again ulceration is very superficial with granular base. Significant amount of surrounding hyperkeratosis was debrided. There is no evidence of cellulitis, malodor or active drainage noted to the left heel. No areas of the deep probing or palpation down to bone noted to either ulceration site. Radiographs: There is no evidence of the cortical erosions or bone changes to the first metatarsal or medial heel. Patient does have a significant amount of hardware present within the right foot from prior Charcot reconstruction along the medial column as well as screws present along the posterior heel. Results - Podiatry Labs 11/23/23 06:19 11/23/23 06:19 ESR 66 mm/hr (0-19) H 11/20/23 19:00 Hemoglobin A1c 5.6 % (4.3-5.6) 11/21/23 05:37 Microbiology Microbiology: Microbiology - Results from entire visit 11/21/23 10:56 Urine - Clean-Voided Midstream Urine Culture - Preliminary No Growth 1 Day 11/20/23 19:19 Blood - Right Antecubital Blood Culture - Preliminary No Growth 1 Day 11/20/23 19:00 Blood - Right Hand Blood Culture - Preliminary No Growth 1 Day 11/20/23 19:04 Nasopharyngeal Respiratory Panel (PCR) - Final Assessment/Plan (1) Ulcer of right foot: Plan: Ulcerations to the right foot were evaluated. ulcers appear very healthy with no evidence of deep opening, pustular drainage, malodor or other signs of infection. There is a large amount of surrounding hyperkeratosis due to weightbearing and pressure. Discussed with the patient that we can order MRI to ensure that there is no bone infection, but clinically the feet look good but he does need to reduce pressure in order to obtain healing. Patient is in agreement with the plan to r/o the foot as the cause for infection. Cultures have been taken. MRi will be ordered and we will follow up after MRI to determine next plan of care. Qualifiers: Non-pressure ulcer stage: limited to breakdown of skin Qualified Code(s): L97.511 - Non-pressure chronic ulcer of other part of right foot limited to breakdown of skin Code(s): L97.519 - Non-pressure chronic ulcer of other part of right foot with unspecified severity (2) Ulcer of right heel: Plan: Ulcerations to the right foot were evaluated. ulcers appear very healthy with no evidence of deep opening, pustular drainage, malodor or other signs of infection. There is a large amount of surrounding hyperkeratosis due to weightbearing and pressure. Discussed with the patient that we can order MRI to ensure that there is no bone infection, but clinically the feet look good but he does need to reduce pressure in order to obtain healing. Patient is in agreement with the plan to r/o the foot as the cause for infection. Cultures have been taken. MRi will be ordered and we will follow up after MRI to determine next plan of care. Qualifiers: Non-pressure ulcer stage: with fat layer exposed Qualified Code(s): L97.412 - Non-pressure chronic ulcer of right heel and midfoot with fat layer exposed Code(s): L97.419 - Non-pressure chronic ulcer of right heel and midfoot with unspecified severity Documented By: Gi Mondragon DPM 11/22/23 1 730 Signed By: <Electronically signed by TIARA Mondragon> 11/23/23 [facility] Work Phone: 1(210) 254-747603-19-2024 Progress note Author Amy Escudero [facility] November 24, 2023 1:40pm Note Date/Time November 23, 2023 1:0 3pm [facility] [address] [place] [address] Hospitalist Progress Note Signed Patient: Evans Forte MR#: [id number] : 1970 Acct:[id number] Age/Sex: 53 / M Adm Date: 4 Loc: Room: [address] [place] [address] Type: DIS IN Attending Dr: Amy Escudero DO Copies to: ~ Date of Service: 11/23/2023 Subjective Subjective Narrative: Seen and examined at bedside, no acute events overnight, resting comfortably in bed. Denies any pain or discomfort, slight drainage from right foot wound, no fever or chills. Exam Physical Exam Vital Signs: Temp Pulse Resp BP Pulse Ox O2 Del Method 97.4 F L 71 16 155/86 H 98 Room Air 11/23/23 09:10 11/23/23 13:00 11/23/23 09:10 11/23/23 13:00 11/23/23 09:10 11/23/23 09:10 Narrative: CONST-alert, awake resting comfortably in bed CARDIAC-normal rate, regular rhythm, normal S1 & S2. PULM-diminished without wheeze or rhonchi, RA, no accessory muscle use or cough noted ABD - Soft. Bowel sounds are normal. No distention No tenderness EXTREM-no edema BLE calves nontender SKIN-erythema to right lower extremity. Dressing intact to right foot Objective Lab Results 11/23/23 06:19 11/23/23 06:19 Microbiology Results Microbiology 11/21/23 10:56 Urine - Clean-Voided Midstream Urine Culture - Final No Growth 2 Days 11/20/23 19:19 Blood - Right Antecubital Blood Culture - Preliminary No Growth 2 Days 11/20/23 19:00 Blood - Right Hand Blood Culture - Preliminary No Growth 2 Days Meds Allergies and Active Meds Allergies latex Allergy (Mild, Verified 11/20/23 18:45) Rash vancomycin Allergy (Unknown, Verified 11/20/23 18:45) Rash haloperidol [From Haldol] Adverse Reaction (Verified 11/20/23 18:45) Anxiety Active Meds: Active Medications Generic Name Dose Route Start Last Admin Trade Name Freq PRN Reason Stop Dose Admin Acetaminophen 650 mg 11/20/23 21:03 Acetaminophen 325 Mg Tablet PO 11/19/24 21:02 Q6HR PRN Pain Scale 1 - 3 or fever Anastrozole 1 mg 11/21/23 09:00 11/22/23 08:14 Anastrozole 1 Mg Tablet PO 11/20/24 08:59 1 mg QAM VINCE Administration Atorvastatin Calcium 20 mg 11/21/23 09:00 11/22/23 08:13 Atorvastatin 20 Mg Tablet PO 11/20/24 08:59 20 mg QAM VINCE Administration Calcitriol 0.25 mcg 11/23/23 09:00 Calcitriol 0.25 Mcg Capsule PO 11/22/24 08:59 TuThSa@0900 VINCE Calcium Acetate 2,668 mg 11/21/23 07:30 11/23/23 08:52 Calcium Acetate 667 Mg Capsule PO 11/20/24 07:29 Not Given AC VINCE Carvedilol 6.25 mg 11/22/23 13:30 11/23/23 08:53 Carvedilol 6.25 Mg Tablet PO 11/21/24 13:29 Not Given BID VINCE Cyanocobalamin 1,000 mcg 11/21/23 09:00 11/22/23 08:13 Cyanocobalamin 1,000 Mcg Tablet PO 11/20/24 08:59 1,000 mcg DAILY VINCE Administration Darbepoetin Zechariah 25 mcg 11/23/23 09:30 11/23/23 11:47 Darbepoetin Zechariah In Polysorbat 25 Mcg/Ml Vial IV-PUSH 11/22/24 09:29 25 mcg Tu@0930 [facility] Administration Protocol Furosemide 80 mg 11/22/23 16:00 11/23/23 08:52 Furosemide 80 Mg Tablet PO 11/21/24 15:59 Not Given BID@0800,1600 [facility] Heparin Sodium (Porcine) 5,000 unit 11/21/23 09:00 11/23/23 08:53 Heparin 5,000 Unit/Ml Vial SUBCUT 11/20/24 08:59 Not Given Q12HR [facility] Heparin Sodium (Porcine) 2,000 unit 11/23/23 09:20 11/23/23 09:40 Heparin 10,000 Unit/10 Ml Vial IV 11/22/24 09:19 2,000 unit PRN PRN Administration Dialysis Heparin Sodium (Porcine) 2,000 unit 11/23/23 09:20 11/23/23 09:40 Heparin 10,000 Unit/10 Ml Vial IV 11/22/24 09:19 2,000 unit PRN PRN Administration Dialysis Linezolid 600 mg in 300 mls @ 300 mls/hr 11/21/23 09:30 11/22/23 21:02 Zyvox IV 300 mls/hr Q12H VINCE Administration Ceftriaxone Sodium 2 gm in 50 mls @ 100 mls/hr 11/21/23 20:00 11/22/23 19:25 Rocephin IV 100 mls/hr Q24H VINCE Administration Sodium Chloride 1,000 mls @ 0 mls/hr 11/23/23 09:20 11/23/23 11:45 0.9% Sodium Chloride 1,000 Ml MISCELLANE 11/22/24 09:19 999 mls/hr .Q0M PRN Administration Dialysis As Directed Insulin Aspart 0 units 11/21/23 16:30 11/23/23 08:52 Insulin Aspart 300 Units/3 Ml Insuln.Pen SUBCUT 11/20/24 16:29 Not Given ACHS [facility] Protocol Insulin Human Regular 50 unit 11/21/23 09:00 11/23/23 08:53 Insulin Regular U-500, Human 1,500 Unit/3 Ml Insuln.Pen SUBCUT 11/20/24 08:59 Not Given BID VINCE Levothyroxine Sodium 100 mcg 11/21/23 06:30 11/23/23 05:38 Levothyroxine 100 Mcg Tablet PO 11/20/24 06:29 100 mcg DAILY.0630 VINCE Administration Melatonin 5 mg 11/20/23 21:03 Melatonin 5 Mg Tablet PO 11/19/24 21:02 QHS PRN Insomnia Morphine Sulfate 2 mg 11/20/23 21:03 11/21/23 19:41 Morphine Sulfate 2 Mg/Ml Vial IV-PUSH 2 mg Q4H PRN Administration Pain Scale 8 - 10 Testosterone 1 % (50 1 packet 11/21/23 09:00 11/23/23 08:53 Mg/5 Gram) Gel In TRANSDERML 11/20/24 08:59 Not Given Packet DAILY VINCE Tirzepatide [ 5 mg 11/30/23 09:00 Jarrod] 5 Mg/0.5 SUBCUT 11/29/24 08:59 Ml Pen Injector Tu@0900 VINCE Ondansetron HCl 4 mg 11/20/23 21:03 Ondansetron 4 Mg/2 Ml Vial IV-PUSH 11/19/24 21:02 Q8H PRN Nausea And Vomiting Pregabalin 50 mg 11/23/23 09:00 Pregabalin 50 Mg Capsule PO 05/21/24 08:59 DAILY VINCE Sodium Chloride 0 ml 11/20/23 18:44 11/23/23 09:40 Sodium Chloride 0.9 % 10 Ml Syringe IV-PUSH 03/16/25 18:43 40 ml PRN PRN Administration Flush Sodium Chloride 0 ml 11/23/23 09:20 Sodium Chloride 0.9 % 10 Ml Syringe IV-PUSH 11/22/24 09:19 PRN PRN Flush Tramadol HCl 50 mg 11/21/23 15:21 Tramadol 50 Mg Tablet PO 05/19/24 15:16 Q12H PRN Pain Trazodone HCl 50 mg 11/20/23 22:32 11/21/23 21:19 Trazodone 50 Mg Tablet PO 11/19/24 22:31 50 mg QHS PRN Administration insomnia A&P - Hospitalist Assessment/Plan (1) Sepsis: (2) Hypomagnesemia: (3) Anemia of renal disease: (4) End stage renal disease: (5) Metabolic acidosis: (6) Insulin dependent diabetes mellitus: (7) Hypertension: (8) Diabetes mellitus due to underlying condition, controlled, with diabetic neuropathy: (9) Diabetic ulcer of foot associated with diabetes mellitus due to underlying condition, with fat layer exposed: Plan Sepsis?source unclear, suspecting from right lower extremity cellulitis Chronic right foot wounds present on admit, hx Charcot deformity repair hardwarepresent Presence of tunneled hemodialysis catheter right chest placed 09/16/2023- last accessed 11/20/23, does not look infectious Recent left forearm fistula placement 10/06/2023- not in use yet Recent removal PD catheter abdomen 10/27/2023 Leukocytosis?resolved * Leukocytosis resolved, continues to be afebrile * Continues on ceftriaxone and linezolid, blood cultures and urine culture with no growth in 2 days * Infectious disease following, planning on switching to oral Zyvox upon discharge * MRI of right foot pending, podiatry following * Foot x-ray with no acute bony injury. No osteolytic or bony destructive process. Diffuse soft tissue swelling, suggestive of cellulitis * Continue zinc, vitamin C for wound healing * Continue wound care and pain management as needed * PVR negative for significant peripheral vascular occlusive disease ESRD on hemodialysis Anemia of CKD Metabolic Acidosis -Nephrology on consult for further management * Hemoglobin stable, on IV iron monthly Hypomagnesemia -repleted, trend Chronic conditions 1. HTN, HLD?atorvastatin. On Coreg and Lasix, BP uncontrolled we will add hydralazine, continue to monitor 2. T2DM with neuropathy? U500 insulin, pregabalin; hold tirzepatide. Check A1c. SSI coverage and fingerstick 3. Hypothyroid?levothyroxine 4. Morbid obesity, GUSTAVO Attending attestation: Patient was personally seen by me on the day of encounter. I reviewed his history and performed ceja elements of exam and formulated the plan of care and confirmed the nurse practitioner's note above. Documented By: Shannon Allen APRN 11/23/23 1303 Signed By: <Electronically signed by HARSH Allen> 11/23/23 1540 <Electronically signed by Amy Escudero DO> 11/24/23 1340 [facility] Work Phone: 1(874) 413-185903-19-2024 Progress note Author Ada Uriostegui [facility] November 23, 2023 12:09pm Note Date/Time November 23, 2023 10: 34am [facility] [address] [place] [address] Nephrology Progress Note Signed Patient: Evans Forte MR#: [id number] : 1970 Acct:[id number] Age/Sex: 53 / M Adm Date: 4 Loc: Room: [address] [place] [address] Type: ADM IN Attending Dr: Amy Escudero DO Copies to: ~ Date of Service: 11/23/2023 Subjective Subjective Narrative: This is a 53-year-old male patient with a past medical history of hypertension, hyperlipidemia, end-stage renal disease on TTS hemodialysis schedule at [facility], insulin-dependent diabetes mellitus, obstructive sleep apnea, right foot wound follows with wound clinic. Patient presented with diaphoresis nausea vomiting following hemodialysis session yesterday. In the emergency room he wasfound to have slight low blood pressure with fever. Patient was given IV fluid bolus 30 cc/kg. Blood culture was drawn and patient was given 1 dose of Zyvox and cefepime in the emergency room. Patient has a right IJ tunnel catheter. Interim history Patient was seen and examined at bedside during dialysis. He was seen by the podiatry and noted to have MRI of the foot.. He is feeling better today denies any chest pain palpation cough nausea diarrhea shortness of breath. He had a PVR study which was negative for any significant hemodynamic peripheral occlusive disease. He had x- ray of the foot which showed cellulitis. Blood culture has been negative to the date. Exam Physical Exam Vital Signs: Temp Pulse Resp BP Pulse Ox O2 Del Method 97.4 F L 68 16 181/85 H 98 Room Air 11/23/23 09:10 11/23/23 09:30 11/23/23 09:10 11/23/23 09:30 11/23/23 09:10 11/23/23 09:10 Narrative: General: Appears comfortable and not in distress Heart: S1-S2, no rub Lung: Bilateral air entry, no wheezing or crackles Abdomen: Soft, positive bowel sounds Extremities: No edema, no cyanosis Head: Atraumatic, normocephalic Ear: No gross hearing Deficit or external ear redness Eyes: No pallor or redness Neck: No JVD or visible mass Skin: No rashes , warm to touch YIELD ANALYST: Awake,Alert, following simple command Musculoskeletal: No joint swelling or limitation of movement Psychiatric: Cooperative, normal mood and affect Objective Intake and Output I&O: Intake & Output 11/20/23 11/21/23 11/22/23 11/23/23 23:59 23:59 23:59 23:59 Intake Total 1050 / 1050 900 / 900 300 / 300 850 / 850 Output Total 100 / 100 Balance 1050 / 1050 800 / 800 300 / 300 850 / 850 Weight 147.3 kg 147 kg 147.6 kg 146.2 kg Meds and Allergies Meds: Active Medications Acetaminophen (Acetaminophen 325 Mg Tablet) 650 mg PO Q6HR PRN PRN Reason: Pain Scale 1 - 3 or fever Stop: 11/19/24 21:02 Anastrozole (Anastrozole 1 Mg Tablet) 1 mg PO QAM [facility] Stop: 11/20/24 08:59 Last Admin: 11/22/23 08:14 Dose: 1 mg Atorvastatin Calcium (Atorvastatin 20 Mg Tablet) 20 mg PO QAM [facility] Stop: 11/20/24 08:59 Last Admin: 11/22/23 08:13 Dose: 20 mg Calcitriol (Calcitriol 0.25 Mcg Capsule) 0.25 mcg PO TuThSa@0900 [facility] Stop: 11/22/24 08:59 Calcium Acetate (Calcium Acetate 667 Mg Capsule) 2,668 mg PO AC [facility] Stop: 11/20/24 07:29 Last Admin: 11/23/23 08:52 Dose: Not Given Carvedilol (Carvedilol 6.25 Mg Tablet) 6.25 mg PO BID [facility] Stop: 11/21/24 13:29 Last Admin: 11/23/23 08:53 Dose: Not Given Cyanocobalamin (Cyanocobalamin 1,000 Mcg Tablet) 1,000 mcg PO DAILY [facility] Stop: 11/20/24 08:59 Last Admin: 11/22/23 08:13 Dose: 1,000 mcg Darbepoetin Zechariah (Darbepoetin Zechariah In Polysorbat 25 Mcg/Ml Vial) 25 mcg IV-PUSHTu@0930 [facility]; Protocol Stop: 11/22/24 09:29 Furosemide (Furosemide 80 Mg Tablet) 80 mg PO BID@0800,1600 [facility] Stop: 11/21/24 15:59 Last Admin: 11/23/23 08:52 Dose: Not Given Heparin Sodium (Porcine) (Heparin 5,000 Unit/Ml Vial) 5,000 unit SUBCUT Q12HR [facility] Stop: 11/20/24 08:59 Last Admin: 11/23/23 08:53 Dose: Not Given Heparin Sodium (Porcine) (Heparin 10,000 Unit/10 Ml Vial) 2,000 unit IV PRN PRN PRN Reason: Dialysis Stop: 11/22/24 09:19 Last Admin: 11/23/23 09:40 Dose: 2,000 unit Heparin Sodium (Porcine) (Heparin 10,000 Unit/10 Ml Vial) 2,000 unit IV PRN PRN PRN Reason: Dialysis Stop: 11/22/24 09:19 Last Admin: 11/23/23 09:40 Dose: 2,000 unit Linezolid (Zyvox) 600 mg in 300 mls @ 300 mls/hr IV Q12H [facility] Last Admin: 11/22/23 21:02 Dose: 300 mls/hr Ceftriaxone Sodium (Rocephin) 2 gm in 50 mls @ 100 mls/hr IV Q24H [facility] Last Admin: 11/22/23 19:25 Dose: 100 mls/hr Sodium Chloride (0.9% Sodium Chloride 1,000 Ml) 1,000 mls @ 0 mls/hr MISCELLANE.Q0M PRN PRN Reason: Dialysis Stop: 11/22/24 09:19 Last Infusion: 11/23/23 09:43 Dose: Infused Insulin Aspart (Insulin Aspart 300 Units/3 Ml Insuln.Pen) 0 units SUBCUT ACHS [facility]; Protocol Stop: 11/20/24 16:29 Last Admin: 11/23/23 08:52 Dose: Not Given Insulin Human Regular (Insulin Regular U-500, Human 1,500 Unit/3 Ml Insuln.Pen) 50 unit SUBCUT BID [facility] Stop: 11/20/24 08:59 Last Admin: 11/23/23 08:53 Dose: Not Given Levothyroxine Sodium (Levothyroxine 100 Mcg Tablet) 100 mcg PO DAILY.0630 [facility] Stop: 11/20/24 06:29 Last Admin: 11/23/23 05:38 Dose: 100 mcg Melatonin (Melatonin 5 Mg Tablet) 5 mg PO QHS PRN PRN Reason: Insomnia Stop: 11/19/24 21:02 Morphine Sulfate (Morphine Sulfate 2 Mg/Ml Vial) 2 mg IV-PUSH Q4H PRN PRN Reason: Pain Scale 8 - 10 Last Admin: 11/21/23 19:41 Dose: 2 mg Testosterone 1 % (50 Mg/5 Gram) Gel In Packet 1 packet TRANSDERML DAILY [facility] Stop: 11/20/24 08:59 Last Admin: 11/23/23 08:53 Dose: Not Given Tirzepatide [ Mounjaro] 5 Mg/0.5 Ml Pen Injector 5 mg SUBCUT Tu@0900 [facility] Stop: 11/29/24 08:59 Ondansetron HCl (Ondansetron 4 Mg/2 Ml Vial) 4 mg IV-PUSH Q8H PRN PRN Reason: Nausea And Vomiting Stop: 11/19/24 21:02 Pregabalin (Pregabalin 50 Mg Capsule) 50 mg PO DAILY [facility] Stop: 05/21/24 08:59 Sodium Chloride (Sodium Chloride 0.9 % 10 Ml Syringe) 0 ml IV-PUSH PRN PRN PRN Reason: Flush Stop: 11/19/24 18:43 Last Admin: 11/23/23 09:40 Dose: 40 ml Sodium Chloride (Sodium Chloride 0.9 % 10 Ml Syringe) 0 ml IV-PUSH PRN PRN PRN Reason: Flush Stop: 11/22/24 09:19 Tramadol HCl (Tramadol 50 Mg Tablet) 50 mg PO Q12H PRN PRN Reason: Pain Stop: 05/19/24 15:16 Trazodone HCl (Trazodone 50 Mg Tablet) 50 mg PO QHS PRN PRN Reason: insomnia Stop: 11/19/24 22:31 Last Admin: 11/21/23 21:19 Dose: 50 mg Allergies latex Allergy (Mild, Verified 11/20/23 18:45) Rash vancomycin Allergy (Unknown, Verified 11/20/23 18:45) Rash haloperidol [From Haldol] Adverse Reaction (Verified 11/20/23 18:45) Anxiety Results - Nephrology Labs 11/23/23 06:19 11/23/23 06:19 Labs: 11/23/23 06:19 BUN 74 H Creatinine 10.07 H D Radiology Impressions Impressions - last 24 hours: Any impression(s) listed above is documentation that was entered by the reading physician into a diagnostic report(s) for Evans Forte. I have reviewed the report(s) and am incorporating any findings in the treatment plan of this patient where applicable. 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 Patient has been going to [facility] for hemodialysis. Last hemodialysis session was yesterday (2) Hyperparathyroidism: Plan: Patient on calcitriol for secondary hypothyroidism (3) Anemia of renal disease: Plan: Hemoglobin is at target for end-stage renal disease. (4) Sepsis: Plan: Patient presented with low blood pressure, fever, leukocytosis. Patient was resuscitated with IV fluid and started on wide spectrum antibiotic concerning for central line related bacteremia. Blood culture is negative so far. Patientcurrently on ceftriaxone and Zyvox as the patient has allergy to vancomycin. Patient also has a right foot sole wound and follows with wound clinic (5) Type 2 diabetes mellitus with diabetic chronic kidney disease: Assessment/Problem Details: He has insulin-dependent type 2 diabetes mellitus. He takes insulin U-500 at home. (6) Benign hypertension with end-stage renal disease: Assessment/Problem Details: Blood pressure is controlled. He takes Lasix and carvedilol at home. Plan * Hemodialysis today as ordered * Continue fever workup as per the primary hospitalist team. Continue empiric antibiotics. Pharmacy to dose medication based on ESRD status * Continue PhosLo with meals and calcitriol for secondary hyperparathyroidism * Continue home dose of the Lasix and carvedilol. * Continue DM management as per the primary hospitalist team. The goal of blood sugar between 100 to 150 mg/dL. * Check CBC and renal function panel before hemodialysis session to adjust order as needed Documented By: Ada Uriostegui MD 11/23/23 1033 Signed By: <Electronically signed by Ada Uriostegui MD> 11/23/23 120 [facility] Work Phone: [phone]) 241-615203-19-2024 Progress note Author Chintan Hernández [facility] November 23, 2023 10:54am Note Date/Time November 23, 2023 10: 54am [facility] [address] [place] [address] Infect. Disease Progress Note Signed Patient: Evans Forte MR#: [id number] : 1970 Acct:[id number] Age/Sex: 53 / M Adm Date: 4 Loc: Room: [address] [place] [address] Type: ADM IN Attending Dr: Amy Escudero DO Copies to: ~ Date of Service: 11/23/2023 Subjective Interval history: Patient seen on dialysis. Feeling good overall. Dietary input appreciated. Continues on IV antibiotics. Exam Physical Exam Vital Signs: Temp Pulse Resp BP Pulse Ox O2 Del Method 97.4 F L 68 16 181/85 H 98 Room Air 11/23/23 09:10 11/23/23 09:30 11/23/23 09:10 11/23/23 09:30 11/23/23 09:10 11/23/23 09:10 Const General: cooperative, comfortable and no acute distress Orientation: oriented x3 HEENT Head: normal to inspection Mouth: oral mucosae normal Eyes General: appearance normal, both eyes and all related structures Neck Neck: normal visual inspection Chest Chest palpation & inspection: abnormal inspection of the chest (R chest wall HD catheter non tender; exit site WNL) Resp Effort & Inspection: normal respiratory effort Cardio Palpation: normal PMI Rate: regular rate Rhythm: regular rhythm GI Inspection: normal to inspection Palpation: soft Auscultation: normal bowel sounds Skin Lesions: lesion noted and other (multiple scabs on LLE; right foot wrapped) Other: Right foot wrapped with some blood noted through the dressing Extrem General: abnormal to inspection Objective Labs CBC/BMP: CBC, BMP 11/23/23 06:19 Corrected WBC 7.7 Uncorrected WBC Count 7.7 RBC 3.73 L Hgb 11.3 L Hct 35.2 L Plt Count 248 Sodium 139 Potassium 4.5 Chloride 102 Carbon Dioxide 25.0 Anion Gap 16.5 H BUN 74 H Creatinine 10.07 H D Calcium 9.3 Labs: 11/23/23 06:19 BUN 74 H Creatinine 10.07 H D Microbiology Microbiology: Microbiology - Results from entire visit 11/21/23 10:56 Urine - Clean-Voided Midstream Urine Culture - Final No Growth 2 Days 11/20/23 19:19 Blood - Right Antecubital Blood Culture - Preliminary No Growth 2 Days 11/20/23 19:00 Blood - Right Hand Blood Culture - Preliminary No Growth 2 Days 11/20/23 19:04 Nasopharyngeal Respiratory Panel (PCR) - Final Allergies and Medications Allergies and Active Meds Allergies latex Allergy (Mild, Verified 11/20/23 18:45) Rash vancomycin Allergy (Unknown, Verified 11/20/23 18:45) Rash haloperidol [From Haldol] Adverse Reaction (Verified 11/20/23 18:45) Anxiety Active Medications Acetaminophen (Acetaminophen 325 Mg Tablet) 650 mg PO Q6HR PRN PRN Reason: Pain Scale 1 - 3 or fever Stop: 11/19/24 21:02 Anastrozole ([facility] 1 Mg Tablet) [facility] Stop: 11/20/24 08:59 Last Admin: 11/22/23 08:14 Dose: 1 mg Atorvastatin Calcium (Atorvastatin 20 Mg Tablet) 20 mg PO QAM [facility] Stop: 11/20/24 08:59 Last Admin: 11/22/23 08:13 Dose: 20 mg Calcitriol (Calcitriol 0.25 Mcg Capsule) 0.25 mcg PO TuThSa@0900 [facility] Stop: 11/22/24 08:59 Calcium Acetate (Calcium Acetate 667 Mg Capsule) 2,668 mg PO AC [facility] Stop: 11/20/24 07:29 Last Admin: 11/23/23 08:52 Dose: Not Given Carvedilol (Carvedilol 6.25 Mg Tablet) 6.25 mg PO BID [facility] Stop: 11/21/24 13:29 Last Admin: 11/23/23 08:53 Dose: Not Given Cyanocobalamin (Cyanocobalamin 1,000 Mcg Tablet) 1,000 mcg PO DAILY [facility] Stop: 11/20/24 08:59 Last Admin: 11/22/23 08:13 Dose: 1,000 mcg Darbepoetin Zechariah (Darbepoetin Zechariah In Polysorbat 25 Mcg/Ml Vial) 25 mcg IV-PUSHTu@0930 [facility]; Protocol Stop: 11/22/24 09:29 Furosemide (Furosemide 80 Mg Tablet) 80 mg PO BID@0800,1600 [facility] Stop: 11/21/24 15:59 Last Admin: 11/23/23 08:52 Dose: Not Given Heparin Sodium (Porcine) (Heparin 5,000 Unit/Ml Vial) 5,000 unit SUBCUT Q12HR [facility] Stop: 11/20/24 08:59 Last Admin: 11/23/23 08:53 Dose: Not Given Heparin Sodium (Porcine) (Heparin 10,000 Unit/10 Ml Vial) 2,000 unit IV PRN PRN PRN Reason: Dialysis Stop: 11/22/24 09:19 Last Admin: 11/23/23 09:40 Dose: 2,000 unit Heparin Sodium (Porcine) (Heparin 10,000 Unit/10 Ml Vial) 2,000 unit IV PRN PRN PRN Reason: Dialysis Stop: 11/22/24 09:19 Last Admin: 11/23/23 09:40 Dose: 2,000 unit Linezolid (Zyvox) 600 mg in 300 mls @ 300 mls/hr IV Q12H [facility] Last Admin: 11/22/23 21:02 Dose: 300 mls/hr Ceftriaxone Sodium (Rocephin) 2 gm in 50 mls @ 100 mls/hr IV Q24H [facility] Last Admin: 11/22/23 19:25 Dose: 100 mls/hr Sodium Chloride (0.9% Sodium Chloride 1,000 Ml) 1,000 mls @ 0 mls/hr MISCELLANE.Q0M PRN PRN Reason: Dialysis Stop: 11/22/24 09:19 Last Infusion: 11/23/23 09:43 Dose: Infused Insulin Aspart (Insulin Aspart 300 Units/3 Ml Insuln.Pen) 0 units SUBCUT ACHS [facility]; Protocol Stop: 11/20/24 16:29 Last Admin: 11/23/23 08:52 Dose: Not Given Insulin Human Regular (Insulin Regular U-500, Human 1,500 Unit/3 Ml Insuln.Pen) 50 unit SUBCUT BID [facility] Stop: 11/20/24 08:59 Last Admin: 11/23/23 08:53 Dose: Not Given Levothyroxine Sodium (Levothyroxine 100 Mcg Tablet) 100 mcg PO DAILY.0630 [facility] Stop: 11/20/24 06:29 Last Admin: 11/23/23 05:38 Dose: 100 mcg Melatonin (Melatonin 5 Mg Tablet) 5 mg PO QHS PRN PRN Reason: Insomnia Stop: 11/19/24 21:02 Morphine Sulfate (Morphine Sulfate 2 Mg/Ml Vial) 2 mg IV-PUSH Q4H PRN PRN Reason: Pain Scale 8 - 10 Last Admin: 11/21/23 19:41 Dose: 2 mg Testosterone 1 % (50 Mg/5 Gram) Gel In Packet 1 packet TRANSDERML DAILY [facility] Stop: 11/20/24 08:59 Last Admin: 11/23/23 08:53 Dose: Not Given Tirzepatide [ Mounjaro] 5 Mg/0.5 Ml Pen Injector 5 mg SUBCUT Tu@0900 [facility] Stop: 11/29/24 08:59 Ondansetron HCl (Ondansetron 4 Mg/2 Ml Vial) 4 mg IV-PUSH Q8H PRN PRN Reason: Nausea And Vomiting Stop: 11/19/24 21:02 Pregabalin (Pregabalin 50 Mg Capsule) 50 mg PO DAILY [facility] Stop: 05/21/24 08:59 Sodium Chloride (Sodium Chloride 0.9 % 10 Ml Syringe) 0 ml IV-PUSH PRN PRN PRN Reason: Flush Stop: 11/19/24 18:43 Last Admin: 11/23/23 09:40 Dose: 40 ml Sodium Chloride (Sodium Chloride 0.9 % 10 Ml Syringe) 0 ml IV-PUSH PRN PRN PRN Reason: Flush Stop: 11/22/24 09:19 Tramadol HCl (Tramadol 50 Mg Tablet) 50 mg PO Q12H PRN PRN Reason: Pain Stop: 05/19/24 15:16 Trazodone HCl (Trazodone 50 Mg Tablet) 50 mg PO QHS PRN PRN Reason: insomnia Stop: 11/19/24 22:31 Last Admin: 11/21/23 21:19 Dose: 50 mg A&P - Infectious Disease Assessment/Plan (1) Fever: (2) Leukocytosis: (3) Wound of right foot: (4) Dependence on renal dialysis: (5) Edema of right lower extremity: Plan HD cath site accessed and dialysis continues to look good. Nontender. Right foot wrapped but some bloody drainage noted on the dressing itself. Right lowerextremity anterior ritter with slight erythema. Concern that cellulitis likely ispatient's reason that he experiences systemic symptoms he had on Wednesday. Blood cultures at this point remain negative. Patient remains on broad-spectrumantibiotic therapy. MRI has been ordered by podiatry. Will see if oral Zyvox can be obtained for insurance purposes for treatment for discharge planning. Documented By: Chintan Hernández MD 11/23/23 1052 Signed By: <Electronically signed by MD Chintan Hernández> 11/23/23 1054 [facility] Work Phone: 1(478) 125-158803-18-2024 Progress note Author Ada Uriostegui [facility] November 22, 2023 12:53pm Note Date/Time November 22, 2023 12: 53pm [facility] [address] [place] [address] Nephrology Progress Note Signed Patient: Evans Forte MR#: [id number] : 1970 Acct:[id number] Age/Sex: 53 / M Adm Date: 4 Loc: Room: [address] [place] [address] Type: ADM IN Attending Dr: Amy Escudero DO Copies to: ~ Date of Service: 11/22/2023 Subjective Subjective Narrative: This is a 53-year-old male patient with a past medical history of hypertension, hyperlipidemia, end-stage renal disease on TTS hemodialysis schedule at [facility], insulin-dependent diabetes mellitus, obstructive sleep apnea, right foot wound follows with wound clinic. Patient presented with diaphoresis nausea vomiting following hemodialysis session yesterday. In the emergency room he wasfound to have slight low blood pressure with fever. Patient was given IV fluid bolus 30 cc/kg. Blood culture was drawn and patient was given 1 dose of Zyvox and cefepime in the emergency room. Patient has a right IJ tunnel catheter. Interim history Patient was seen and examined at bedside. He is feeling better today denies anychest pain palpation cough nausea diarrhea shortness of breath. He had a PVR study which was negative for any significant hemodynamic peripheral occlusive disease. He had x-ray of the foot which showed cellulitis. Blood culture has been negative to the date. Exam Physical Exam Vital Signs: Temp Pulse Resp BP Pulse Ox O2 Del Method 97.8 F 70 18 169/98 H 99 Room Air 11/22/23 07:41 11/22/23 11:18 11/22/23 11:18 11/22/23 11:18 11/22/23 11:18 11/22/23 11:18 Narrative: General: Appears comfortable and not in distress Heart: S1-S2, no rub Lung: Bilateral air entry, no wheezing or crackles Abdomen: Soft, positive bowel sounds Extremities: No edema, no cyanosis Head: Atraumatic, normocephalic Ear: No gross hearing Deficit or external ear redness Eyes: No pallor or redness Neck: No JVD or visible mass Skin: No rashes , warm to touch YIELD ANALYST: Awake,Alert, following simple command Musculoskeletal: No joint swelling or limitation of movement Psychiatric: Cooperative, normal mood and affect Objective Intake and Output I&O: Intake & Output 11/19/23 11/20/23 11/21/23 11/22/23 23:59 23:59 23:59 23:59 Intake Total 1050 / 1050 850 / 850 Output Total 100 / 100 Balance 1050 / 1050 750 / 750 Weight 147.3 kg 147 kg 147.6 kg Meds and Allergies Meds: Active Medications Acetaminophen (Acetaminophen 325 Mg Tablet) 650 mg PO Q6HR PRN PRN Reason: Pain Scale 1 - 3 or fever Stop: 11/19/24 21:02 Anastrozole ([facility] 1 Mg Tablet) [facility] Stop: 11/20/24 08:59 Last Admin: 11/22/23 08:14 Dose: 1 mg Atorvastatin Calcium (Atorvastatin 20 Mg Tablet) 20 mg PO QAM [facility] Stop: 11/20/24 08:59 Last Admin: 11/22/23 08:13 Dose: 20 mg Calcitriol (Calcitriol 0.25 Mcg Capsule) 0.25 mcg PO TuThSa@0900 [facility] Stop: 11/22/24 08:59 Calcium Acetate (Calcium Acetate 667 Mg Capsule) 2,668 mg PO AC [facility] Stop: 11/20/24 07:29 Last Admin: 11/22/23 11:21 Dose: 2,668 mg Carvedilol (Carvedilol 6.25 Mg Tablet) 6.25 mg PO BID [facility] Stop: 11/21/24 12:19 Cyanocobalamin (Cyanocobalamin 1,000 Mcg Tablet) 1,000 mcg PO DAILY [facility] Stop: 11/20/24 08:59 Last Admin: 11/22/23 08:13 Dose: 1,000 mcg Heparin Sodium (Porcine) (Heparin 5,000 Unit/Ml Vial) 5,000 unit SUBCUT Q12HR [facility] Stop: 11/20/24 08:59 Last Admin: 11/22/23 08:14 Dose: 5,000 unit Linezolid (Zyvox) 600 mg in 300 mls @ 300 mls/hr IV Q12H [facility] Last Admin: 11/22/23 08:58 Dose: 300 mls/hr Ceftriaxone Sodium (Rocephin) 2 gm in 50 mls @ 100 mls/hr IV Q24H [facility] Last Admin: 11/21/23 19:41 Dose: 100 mls/hr Insulin Aspart (Insulin Aspart 300 Units/3 Ml Insuln.Pen) 0 units SUBCUT ACHS [facility]; Protocol Stop: 11/20/24 16:29 Last Admin: 11/22/23 11:22 Dose: 2 units Insulin Human Regular (Insulin Regular U-500, Human 1,500 Unit/3 Ml Insuln.Pen) 50 unit SUBCUT BID [facility] Stop: 11/20/24 08:59 Last Admin: 11/22/23 08:16 Dose: 50 unit Levothyroxine Sodium (Levothyroxine 100 Mcg Tablet) 100 mcg PO DAILY.0630 [facility] Stop: 11/20/24 06:29 Last Admin: 11/22/23 05:29 Dose: 100 mcg Melatonin (Melatonin 5 Mg Tablet) 5 mg PO QHS PRN PRN Reason: Insomnia Stop: 11/19/24 21:02 Morphine Sulfate (Morphine Sulfate 2 Mg/Ml Vial) 2 mg IV-PUSH Q4H PRN PRN Reason: Pain Scale 8 - 10 Last Admin: 11/21/23 19:41 Dose: 2 mg Testosterone 1 % (50 Mg/5 Gram) Gel In Packet 1 packet TRANSDERML DAILY [facility] Stop: 11/20/24 08:59 Last Admin: 11/22/23 11:21 Dose: Not Given Tirzepatide [ Mounjaro] 5 Mg/0.5 Ml Pen Injector 5 mg SUBCUT Tu@0900 [facility] Stop: 11/29/24 08:59 Ondansetron HCl (Ondansetron 4 Mg/2 Ml Vial) 4 mg IV-PUSH Q8H PRN PRN Reason: Nausea And Vomiting Stop: 11/19/24 21:02 Pregabalin (Pregabalin 150 Mg Capsule) 150 mg PO BID [facility] Stop: 05/19/24 08:59 Last Admin: 11/22/23 08:14 Dose: 150 mg Sodium Chloride (Sodium Chloride 0.9 % 10 Ml Syringe) 0 ml IV-PUSH PRN PRN PRN Reason: Flush Stop: 11/19/24 18:43 Last Admin: 11/21/23 11:14 Dose: 10 ml Tramadol HCl (Tramadol 50 Mg Tablet) 50 mg PO Q12H PRN PRN Reason: Pain Stop: 05/19/24 15:16 Trazodone HCl (Trazodone 50 Mg Tablet) 50 mg PO QHS PRN PRN Reason: insomnia Stop: 11/19/24 22:31 Last Admin: 11/21/23 21:19 Dose: 50 mg Allergies latex Allergy (Mild, Verified 11/20/23 18:45) Rash vancomycin Allergy (Unknown, Verified 11/20/23 18:45) Rash haloperidol [From Haldol] Adverse Reaction (Verified 11/20/23 18:45) Anxiety Results - Nephrology Labs 11/22/23 06:16 11/22/23 06:16 Labs: 11/22/23 06:16 BUN 62 H Creatinine 9.33 H D Radiology Impressions Impressions - last 24 hours: Impressions Foot X-Ray 11/21/23 15:15 IMPRESSION: No acute bony injury. No osteolytic or bony destructive process. Diffuse soft tissue swelling is noted suggesting cellulitis. Impression dictated by: Taqueria Reese M.D.11/21/2023 4:39 PM Dictation Location: [address] 11/22/23 07:00 IMPRESSION: NO HEMODYNAMICALLY SIGNIFICANT PERIPHERAL VASCULAR OCCLUSIVE DISEASE AT REST IN EITHER LOWER EXTREMITY. Impression dictated by: Ramirez Jean M.D.11/22/2023 10:09 AM Dictation Location: [place] [address] Any impression(s) listed above is documentation that was entered by the reading physician into a diagnostic report(s) for Evans Forte. I have reviewed the report(s) and am incorporating any findings in the treatment plan of this patient where applicable. 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 Patient has been going to [facility] on TTS for hemodialysis. Last hemodialysis session was yesterday (2) Hyperparathyroidism: Plan: Patient on calcitriol for secondary hypothyroidism (3) Anemia of renal disease: Plan: Hemoglobin is at target for end-stage renal disease. (4) Sepsis: Plan: Patient presented with low blood pressure, fever, leukocytosis. Patient was resuscitated with IV fluid and started on wide spectrum antibiotic concerning for central line related bacteremia. Blood culture is negative so far. Patientcurrently on ceftriaxone and Zyvox as the patient has allergy to vancomycin. Patient also has a right foot sole wound and follows with wound clinic (5) Type 2 diabetes mellitus with diabetic chronic kidney disease: Assessment/Problem Details: He has insulin-dependent type 2 diabetes mellitus. He takes insulin U-500 at home. (6) Benign hypertension with end-stage renal disease: Assessment/Problem Details: Blood pressure is controlled. He takes Lasix and carvedilol at home. Plan * No need for hemodialysis session today. Next hemodialysis session will be Wednesday * Continue fever workup as per the primary hospitalist team. Continue empiric antibiotics. Pharmacy to dose medication based on ESRD status * Continue PhosLo with meals and calcitriol for secondary hyperparathyroidism * Continue home dose of the Lasix and carvedilol. * Continue DM management as per the primary hospitalist team. The goal of blood sugar between 100 to 150 mg/dL. * Check CBC and renal function panel before hemodialysis session to adjust order as needed Documented By: Ada Uriostegui MD 11/22/23 1241 Signed By: <Electronically signed by Ada Uriostegui MD> 11/22/23 1761 [facility] Work Phone: 1(511) 386-277303-18-2024 Progress note Author Amy Escudero [facility] November 22, 2023 12:45pm Note Date/Time November 22, 2023 10: 37am [facility] [address] [place] [address] Hospitalist Progress Note Signed Patient: Evans Forte MR#: [id number] : 1970 Acct:[id number] Age/Sex: 53 / M Adm Date: 4 Loc: Room: [address] [place] [address] Type: ADM IN Attending Dr: Amy Escudero DO Copies to: ~ Date of Service: 11/22/2023 Subjective Subjective Narrative: Seen and examined at bedside, no acute events overnight, resting quietly in bed. Reports improved pain to right lower extremity, still has some redness to the right lower extremity, unable to see wound at this time. Dressing just got changed by wound care. Denies dizziness, nausea vomiting. Afebrile. Exam Physical Exam Vital Signs: Temp Pulse Resp BP Pulse Ox O2 Del Method 97.8 F 70 18 116/65 95 Room Air 11/22/23 07:41 11/22/23 07:41 11/22/23 07:41 11/22/23 07:41 11/22/23 07:41 11/22/23 07:43 Narrative: CONST-alert, awake resting comfortably in bed CARDIAC-normal rate, regular rhythm, normal S1 & S2. PULM-diminished without wheeze or rhonchi, RA, no accessory muscle use or cough noted ABD - Soft. Bowel sounds are normal. No distention No tenderness EXTREM-no edema BLE calves nontender SKIN-erythema to right lower extremity. Dressing intact to right foot Objective Lab Results 11/22/23 06:16 11/22/23 06:16 Microbiology Results Microbiology 11/21/23 10:56 Urine - Clean-Voided Midstream Urine Culture - Preliminary No Growth 1 Day 11/20/23 19:19 Blood - Right Antecubital Blood Culture - Preliminary No Growth 1 Day 11/20/23 19:00 Blood - Right Hand Blood Culture - Preliminary No Growth 1 Day Meds Allergies and Active Meds Allergies latex Allergy (Mild, Verified 11/20/23 18:45) Rash vancomycin Allergy (Unknown, Verified 11/20/23 18:45) Rash haloperidol [From Haldol] Adverse Reaction (Verified 03/16/24 18:45) Anxiety Active Meds: Active Medications Generic Name Dose Route Start Last Admin Trade Name Rachel PRN Reason Stop Dose Admin Acetaminophen 650 mg 11/20/23 21:03 Acetaminophen 325 Mg Tablet PO 11/19/24 21:02 Q6HR PRN Pain Scale 1 - 3 or fever Anastrozole 1 mg 11/21/23 09:00 11/22/23 08:14 Anastrozole 1 Mg Tablet PO 11/20/24 08:59 1 mg QAM VINCE Administration Atorvastatin Calcium 20 mg 11/21/23 09:00 11/22/23 08:13 Atorvastatin 20 Mg Tablet PO 11/20/24 08:59 20 mg QAM VINCE Administration Calcitriol 0.25 mcg 11/23/23 09:00 Calcitriol 0.25 Mcg Capsule PO 11/22/24 08:59 TuThSa@0900 [facility] Calcium Acetate 2,668 mg 11/21/23 07:30 11/22/23 08:13 Calcium Acetate 667 Mg Capsule PO 11/20/24 07:29 2,668 mg AC VINCE Administration Cyanocobalamin 1,000 mcg 11/21/23 09:00 11/22/23 08:13 Cyanocobalamin 1,000 Mcg Tablet PO 11/20/24 08:59 1,000 mcg DAILY [facility]IN[facility] Administration Heparin Sodium (Porcine) 5,000 unit 11/21/23 09:00 11/22/23 08:14 Heparin 5,000 Unit/Ml Vial SUBCUT 11/20/24 08:59 5,000 unit Q12HR VINCE Administration Linezolid 600 mg in 300 mls @ 300 mls/hr 11/21/23 09:30 11/22/23 08:58 Zyvox IV 300 mls/hr Q12H [facility]INCE Administration Ceftriaxone Sodium 2 gm in 50 mls @ 100 mls/hr 11/21/23 20:00 11/21/23 19:41 Rocephin IV 100 mls/hr Q24H [facility]IN[facility] Administration Insulin Aspart 0 units 11/21/23 16:30 11/22/23 08:13 Insulin Aspart 300 Units/3 Ml Insuln.Pen SUBCUT 11/20/24 16:29 Not Given ACHS [facility] Protocol Insulin Human Regular 50 unit 11/21/23 09:00 11/22/23 08:16 Insulin Regular U-500, Human 1,500 Unit/3 Ml Insuln.Pen SUBCUT 11/20/24 08:59 50 unit BID VINCE Administration Levothyroxine Sodium 100 mcg 11/21/23 06:30 11/22/23 05:29 Levothyroxine 100 Mcg Tablet PO 11/20/24 06:29 100 mcg DAILY.0630 [facility]IN[facility] Administration Melatonin 5 mg 11/20/23 21:03 Melatonin 5 Mg Tablet PO 11/19/24 21:02 QHS PRN Insomnia Morphine Sulfate 2 mg 11/20/23 21:03 11/21/23 19:41 Morphine Sulfate 2 Mg/Ml Vial IV-PUSH 2 mg Q4H PRN Administration Pain Scale 8 - 10 Testosterone 1 % (50 1 packet 11/21/23 09:00 11/21/23 10:14 Mg/5 Gram) Gel In TRANSDERML 11/20/24 08:59 Not Given Packet DAILY [facility] Tirzepatide [ 5 mg 11/30/23 09:00 Mounandrewro] 5 Mg/0.5 SUBCUT 11/29/24 08:59 Ml Pen Injector Tu@0900 [facility] Ondansetron HCl 4 mg 11/20/23 21:03 Ondansetron 4 Mg/2 Ml Vial IV-PUSH 11/19/24 21:02 Q8H PRN Nausea And Vomiting Pregabalin 150 mg 11/21/23 09:00 11/22/23 08:14 Pregabalin 150 Mg Capsule PO 05/19/24 08:59 150 mg BID [facility]INCE Administration Sodium Chloride 0 ml 11/20/23 18:44 11/21/23 11:14 Sodium Chloride 0.9 % 10 Ml Syringe IV-PUSH 11/19/24 18:43 10 ml PRN PRN Administration Flush Tramadol HCl 50 mg 11/21/23 15:21 Tramadol 50 Mg Tablet PO 05/19/24 15:16 Q12H PRN Pain Trazodone HCl 50 mg 11/20/23 22:32 11/21/23 21:19 Trazodone 50 Mg Tablet PO 11/19/24 22:31 50 mg QHS PRN Administration insomnia A&P - Hospitalist Assessment/Plan (1) Sepsis: (2) Hypomagnesemia: (3) Anemia of renal disease: (4) End stage renal disease: (5) Metabolic acidosis: (6) Insulin dependent diabetes mellitus: (7) Hypertension: (8) Diabetes mellitus due to underlying condition, controlled, with diabetic neuropathy: (9) Diabetic ulcer of foot associated with diabetes mellitus due to underlying condition, with fat layer exposed: Plan Sepsis?source unclear, suspecting from right lower extremity cellulitis Chronic right foot wounds present on admit, hx Charcot deformity repair hardwarepresent Presence of tunneled hemodialysis catheter right chest placed 09/16/2023- last accessed 11/20/23, does not look infectious Recent left forearm fistula placement 10/06/2023- not in use yet Recent removal PD catheter abdomen 10/27/2023 Leukocytosis?resolved * Leukocytosis resolved, continues to be afebrile * Continues on ceftriaxone and linezolid, blood cultures and urine culture with no growth in 1 day * Foot x-ray with no acute bony injury. No osteolytic or bony destructive process. Diffuse soft tissue swelling, suggestive of cellulitis * Podiatry and infectious disease consult pending * Furosemide and carvedilol initially held due to sepsis, blood pressure improved will restart * Continue zinc, vitamin C for wound healing * Continue wound care and pain management as needed * would benefit from vascular workup of right lower extremity with chronic woun ds. MADDI ordered, consider vascular consult dependent on results ESRD on hemodialysis Anemia of CKD Metabolic Acidosis -Nephrology on consult for further management * On IV iron monthly Hypomagnesemia -repleted, trend Chronic conditions 1. HTN, HLD?atorvastatin. Home Carvedilol and furosemide on hold with sepsis 2. T2DM with neuropathy? U500 insulin, pregabalin; hold tirzepatide. Check A1c. SSI coverage and fingerstick 3. Hypothyroid?levothyroxine 4. Morbid obesity, GUSTAVO Attending attestation: Patient was personally seen by me on the day of encounter. I reviewed his history and performed ceja elements of exam and formulated the plan of care and confirmed the nurse practitioner's note above. Documented By: Shannon Allen APRN 11/22/23 1029 Signed By: <Electronically signed by HARSH Allen> 11/22/23 1240 <Electronically signed by Amy Escudero DO> 11/22/23 124 [facility] Work Phone: 1(981) 222-227403-18-2024 Consult note Author Chintan Hernández [facility] November 22, 2023 11:26am Note Date/Time November 22, 2023 11: 26am [facility] [address] [place] [address] Infect. Disease Consult Note Signed Patient: Evans Forte MR#: [id number] : 1970 Acct:[id number] Age/Sex: 53 / M Adm Date: 4 Loc: Room: [address] [place] [address] Type: ADM IN Attending Dr: Amy Escudero DO Copies to: DO Chintan Dhillon MD Yazid Hussein, DO~ HPI Data of Consult Consult date: 11/22/23 Requesting Physician: Amy Escudero DO Primary Care Provider: Idania Ricketts DO Consult Narrative History of present illness: Mr. Forte is a 53 year old male who had HD on Sat and went home and developedfevers/chills with associated nausea. Has had current HD catheter about 1 monthas his left wrist AVF matures. Was on PD. Also with chronic R foot ulcer with increased pain/erythema of RLE. Bcx to date are negative. On linezolid and ceftriaxone. CC: Amy Escudero DO Review of Systems Review of Systems All other systems reviewed & are negative unless noted below or in HPI [facility] Medical History (Updated 11/22/23 @ 11:24 by Chintan Hernández MD) Hypertension Hyperlipidemia End stage renal disease Dependence on renal dialysis Anemia Insulin long-term use Chronic kidney disease, stage 4 (severe) Sleep apnea no machine Pancreatitis Hypothyroid Hyperlipidemia Anemia Dependence on renal dialysis End stage renal disease PD catheter dysfunction Cellulitis Hypertension Neuropathy slim feet-tingling Renal insufficiency Diabetes mellitus, type 2 Surgical History [place] cardiac [place] [facility] of orthopedic surgery right foot has 14 screws and 3 plates. Family History Mother Breast cancer Cancer Legacy family hx; cancer Father Myocardial infarction Heart disease Grandparent Breast cancer Daughter Crohn's disease Legacy FamHx Relation: Daughter(s) Social History Smoking Status: Never smoker Tobacco Type: smokeless tobacco Substance Use Type: None Allergies and Medications Allergies and Active Meds Allergies latex Allergy (Mild, Verified 11/20/23 18:45) Rash vancomycin Allergy (Unknown, Verified 11/20/23 18:45) Rash haloperidol [From Haldol] Adverse Reaction (Verified 11/20/23 18:45) Anxiety Active Medications Acetaminophen (Acetaminophen 325 Mg Tablet) 650 mg PO Q6HR PRN PRN Reason: Pain Scale 1 - 3 or fever Stop: 11/19/24 21:02 Anastrozole (An[facility]zole 1 Mg Tablet) [facility] Stop: 11/20/24 08:59 Last Admin: 11/22/23 08:14 Dose: 1 mg Atorvastatin Calcium (Atorvastatin 20 Mg Tablet) 20 mg PO QAM [facility] Stop: 11/20/24 08:59 Last Admin: 11/22/23 08:13 Dose: 20 mg Calcitriol (Calcitriol 0.25 Mcg Capsule) 0.25 mcg PO TuThSa@0900 [facility] Stop: 11/22/24 08:59 Calcium Acetate (Calcium Acetate 667 Mg Capsule) 2,668 mg PO AC [facility] Stop: 11/20/24 07:29 Last Admin: 11/22/23 08:13 Dose: 2,668 mg Cyanocobalamin (Cyanocobalamin 1,000 Mcg Tablet) 1,000 mcg PO DAILY [facility] Stop: 11/20/24 08:59 Last Admin: 11/22/23 08:13 Dose: 1,000 mcg Heparin Sodium (Porcine) (Heparin 5,000 Unit/Ml Vial) 5,000 unit SUBCUT Q12HR [facility] Stop: 11/20/24 08:59 Last Admin: 11/22/23 08:14 Dose: 5,000 unit Linezolid (Zyvox) 600 mg in 300 mls @ 300 mls/hr IV Q12H [facility] Last Admin: 11/22/23 08:58 Dose: 300 mls/hr Ceftriaxone Sodium (Rocephin) 2 gm in 50 mls @ 100 mls/hr IV Q24H [facility] Last Admin: 11/21/23 19:41 Dose: 100 mls/hr Insulin Aspart (Insulin Aspart 300 Units/3 Ml Insuln.Pen) 0 units SUBCUT [facility]; Protocol Stop: 11/20/24 16:29 Last Admin: 11/22/23 08:13 Dose: Not Given Insulin Human Regular (Insulin Regular U-500, Human 1,500 Unit/3 Ml Insuln.Pen) 50 unit SUBCUT BID [facility] Stop: 11/20/24 08:59 Last Admin: 11/22/23 08:16 Dose: 50 unit Levothyroxine Sodium (Levothyroxine 100 Mcg Tablet) 100 mcg PO DAILY.0630 [facility] Stop: 11/20/24 06:29 Last Admin: 11/22/23 05:29 Dose: 100 mcg Melatonin (Melatonin 5 Mg Tablet) 5 mg PO QHS PRN PRN Reason: Insomnia Stop: 11/19/24 21:02 Morphine Sulfate (Morphine Sulfate 2 Mg/Ml Vial) 2 mg IV-PUSH Q4H PRN PRN Reason: Pain Scale 8 - 10 Last Admin: 11/21/23 19:41 Dose: 2 mg Testosterone 1 % (50 Mg/5 Gram) Gel In Packet 1 packet TRANSDERML DAILY [facility] Stop: 11/20/24 08:59 Last Admin: 11/21/23 10:14 Dose: Not Given Tirzepatide [ Mounjaro] 5 Mg/0.5 Ml Pen Injector 5 mg SUBCUT Tu@0900 [facility] Stop: 11/29/24 08:59 Ondansetron HCl (Ondansetron 4 Mg/2 Ml Vial) 4 mg IV-PUSH Q8H PRN PRN Reason: Nausea And Vomiting Stop: 11/19/24 21:02 Pregabalin (Pregabalin 150 Mg Capsule) 150 mg PO BID [facility] Stop: 05/19/24 08:59 Last Admin: 11/22/23 08:14 Dose: 150 mg Sodium Chloride (Sodium Chloride 0.9 % 10 Ml Syringe) 0 ml IV-PUSH PRN PRN PRN Reason: Flush Stop: 11/19/24 18:43 Last Admin: 11/21/23 11:14 Dose: 10 ml Tramadol HCl (Tramadol 50 Mg Tablet) 50 mg PO Q12H PRN PRN Reason: Pain Stop: 05/19/24 15:16 Trazodone HCl (Trazodone 50 Mg Tablet) 50 mg PO QHS PRN PRN Reason: insomnia Stop: 11/19/24 22:31 Last Admin: 11/21/23 21:19 Dose: 50 mg Exam Physical Exam Vital Signs: Vital Signs Temp Pulse Resp BP Pulse Ox O2 Del Method 11/22/23 11:18 70 18 169/98 H 99 Room Air 11/22/23 07:43 Room Air 11/22/23 07:41 97.8 F 70 18 116/65 95 Room Air 11/22/23 04:00 98.3 F 79 17 147/72 H 96 Room Air 11/22/23 04:00 Room Air 11/21/23 23:58 97.9 F 74 18 130/70 96 Room Air 11/21/23 19:58 97.9 F 74 18 177/92 H 97 Room Air 11/21/23 19:56 Room Air 11/21/23 16:00 98.1 F 78 16 160/88 H 98 Room Air Intake and Output 11/21/23 11/22/23 11/22/23 23:59 07:59 15:59 Intake Total 300 / 850 Output Total 100 / 100 Balance 200 / 750 Intake: IV 300 / 600 Linezolid 600 mg 600 mg In 300 300 / 600 ml @ 300 mls/hr IV Q12H [facility]INCE Rx# :[id number] Output: Urine 100 / 100 Other: # Unmeasured Voids 1 Weight 325 lb 6.436 oz Date of Last Bowel Movement 11/20/23 11/20/23 Patient Weight 11/22/23 23:59 Weight 325 lb 6.436 oz Const General: cooperative, comfortable and no acute distress Orientation: oriented x3 HEENT Head: normal to inspection Mouth: oral mucosae normal Eyes General: appearance normal, both eyes and all related structures Neck Neck: normal visual inspection Chest Chest palpation & inspection: abnormal inspection of the chest (R chest wall HD catheter non tender; exit site WNL) Resp Effort & Inspection: normal respiratory effort Cardio Palpation: normal PMI Rate: regular rate Rhythm: regular rhythm GI Inspection: normal to inspection Palpation: soft Auscultation: normal bowel sounds Skin Lesions: lesion noted and other (multiple scabs on LLE) Other: RLE edema with mild erythema of RLE; R foot ulcer wrapped with clean/gauze dressing. Documented R plantar and heel wounds Extrem General: abnormal to inspection Results - Infectious Disease Labs 11/22/23 06:16 11/22/23 06:16 Labs: 11/22/23 06:16: Corrected WBC 8.8, Uncorrected WBC Count 8.8, BUN 62 H, Creatinine 9.33 H D Microbiology Results Microbiology Narrative: 11/21/23 10:56 Urine Culture - Preliminary Urine - Clean-Voided Midstream No Growth 1 Day 11/20/23 19:19 Blood Culture - Preliminary Blood - Right Antecubital No Growth 1 Day 11/20/23 19:00 Blood Culture - Preliminary Blood - Right Hand No Growth 1 Day 11/20/23 19:04 Respiratory Panel (PCR) - Final Nasopharyngeal Imaging and Cardiology Status: report viewed by me Results Comments: Foot xray: IMPRESSION: No acute bony injury. No osteolytic or bony destructive process. Diffuse soft tissue swelling is noted suggesting cellulitis. A&P - Infectious Disease (1) Fever: (2) Leukocytosis: (3) Wound of right foot: (4) Dependence on renal dialysis: (5) Edema of right lower extremity: Plan To date cultures no growth. Resolved leukocytosis. Afebrile. HD cath exit site looks good. Given R foot wounds and mild erythema perhaps source is from this site. At thistime as long as blood cultures are negative plan to keep HD catheter. Linezolid and ceftriaxone to continue. Documented By: Chintan Hernández MD 11/22/23 1117 Signed By: <Electronically signed by MD Chintan Hernández> 11/22/23 1126 [facility] Work Phone: 1(146) 603-633703-17-2024 Progress note Author Arnol Calloway [facility] November 21, 2023 5:52pm Note Date/Time November 21, 2023 11: 07am [facility] [address] [place] [address] Hospitalist Progress Note Signed Patient: Evans Forte MR#: [id number] : 1970 Acct:[id number] Age/Sex: 53 / M Adm Date: 4 Loc: Room: [address] [place] [address] Type: ADM IN Attending Dr: Arnol Calloway MD Copies to: ~ Date of Service: 11/21/2023 Subjective Subjective Narrative: Patient is seen and examined. His spouse is present in the room. He is sittingup on the couch indicates he is feeling better. States overall he felt unwell/ill and was diaphoretic at home with no specific complaints otherwise. Patient reports chronic wound right lateral medial aspect with prior Charcot deformity there posterior repair with hardware in place for over a year, also with reported chronic wound over 2 years plantar aspect of foot as well as wartson the bottom of his foot?indicates that this area has recently been healed. Patient indicates he has chronic pain and wound pain of the foot as well as neuropathy. Follows with Dr. Fonseca/podiatry in [place] but indicates has not had vascular studies in the past. Exam Physical Exam Vital Signs: Temp Pulse Resp BP Pulse Ox O2 Del Method 98.4 F 82 16 137/74 97 Room Air 11/21/23 07:48 11/21/23 07:48 11/21/23 07:48 11/21/23 07:48 11/21/23 07:48 11/21/23 07:50 Narrative: CONST- alert, seated on couch in room, no distress at rest CARD- RRR no abnormal heart tones PULM- dimin without wheeze or rhonchi, RA ABD- S/NT, NABS, morbid obesity EXTREM-trace edema BLE, calves nontender, pedal is palpable Skin?venous stasis discoloration mid ritter down, right foot with dressing in place with reported plantar surface and medial lateral surface wounds- refer to wound documentation for measurements description, there is scabbed areas on bilateral anterior shins. Tunneled dialysis catheter right chest. Left wrist fistula with good thrill and healing with scabbed area Objective Lab Results 11/21/23 05:37 11/21/23 05:37 Microbiology Results Microbiology 11/20/23 19:04 Nasopharyngeal Respiratory Panel (PCR) - Final Meds Allergies and Active Meds Allergies latex Allergy (Mild, Verified 11/20/23 18:45) Rash vancomycin Allergy (Unknown, Verified 11/20/23 18:45) Rash haloperidol [From Haldol] Adverse Reaction (Verified 11/20/23 18:45) Anxiety Active Meds: Active Medications Generic Name Dose Route Start Last Admin Trade Name Freq PRN Reason Stop Dose Admin Acetaminophen 650 mg 11/20/23 21:03 Acetaminophen 325 Mg Tablet PO 11/19/24 21:02 Q6HR PRN Pain Scale 1 - 3 or fever Anastrozole 1 mg 11/21/23 09:00 11/21/23 08:00 Anastrozole 1 Mg Tablet PO 11/20/24 08:59 1 mg QAM VINCE Administration Atorvastatin Calcium 20 mg 11/21/23 09:00 11/21/23 08:00 Atorvastatin 20 Mg Tablet PO 11/20/24 08:59 20 mg QAM VINCE Administration Calcitriol 0.25 mcg 11/23/23 09:00 Calcitriol 0.25 Mcg Capsule PO 11/22/24 08:59 TuThSa@0900 [facility]INCE Calcium Acetate 2,668 mg 11/21/23 07:30 11/21/23 07:54 Calcium Acetate 667 Mg Capsule PO 11/20/24 07:29 2,668 mg AC VINCE Administration Cyanocobalamin 1,000 mcg 11/21/23 09:00 11/21/23 08:00 Cyanocobalamin 1,000 Mcg Tablet PO 11/20/24 08:59 1,000 mcg DAILY VINCE Administration Heparin Sodium (Porcine) 5,000 unit 11/21/23 09:00 11/21/23 08:00 Heparin 5,000 Unit/Ml Vial SUBCUT 11/20/24 08:59 5,000 unit Q12HR VINCE Administration Linezolid 600 mg in 300 mls @ 300 mls/hr 11/21/23 09:30 11/21/23 09:06 Zyvox IV 300 mls/hr Q12H VINCE Administration Ceftriaxone Sodium 2 gm in 50 mls @ 100 mls/hr 11/21/23 20:00 Rocephin IV Q24H VINCE Insulin Human Regular 50 unit 11/21/23 09:00 11/21/23 08:00 Insulin Regular U-500, Human 1,500 Unit/3 Ml Insuln.Pen SUBCUT 11/20/24 08:59 50 unit BID VINCE Administration Levothyroxine Sodium 100 mcg 11/21/23 06:30 11/21/23 05:39 Levothyroxine 100 Mcg Tablet PO 11/20/24 06:29 100 mcg DAILY.0630 VINCE Administration Melatonin 5 mg 11/20/23 21:03 Melatonin 5 Mg Tablet PO 11/19/24 21:02 QHS PRN Insomnia Morphine Sulfate 2 mg 11/20/23 21:03 11/21/23 00:25 Morphine Sulfate 2 Mg/Ml Vial IV-PUSH 2 mg Q4H PRN Administration Pain Scale 8 - 10 Testosterone 1 % (50 1 packet 11/21/23 09:00 11/21/23 10:14 Mg/5 Gram) Gel In TRANSDERML 11/20/24 08:59 Not Given Packet DAILY VINCE Tirzepatide [ 5 mg 11/30/23 09:00 Mounjaro] 5 Mg/0.5 SUBCUT 11/29/24 08:59 Ml Pen Injector Tu@0900 VINCE Ondansetron HCl 4 mg 11/20/23 21:03 Ondansetron 4 Mg/2 Ml Vial IV-PUSH 11/19/24 21:02 Q8H PRN Nausea And Vomiting Pregabalin 150 mg 11/21/23 09:00 11/21/23 08:00 Pregabalin 150 Mg Capsule PO 05/19/24 08:59 150 mg BID VINCE Administration Sodium Chloride 0 ml 11/20/23 18:44 11/20/23 19:10 Sodium Chloride 0.9 % 10 Ml Syringe IV-PUSH 11/19/24 18:43 10 ml PRN PRN Administration Flush Trazodone HCl 50 mg 11/20/23 22:32 Trazodone 50 Mg Tablet PO 11/19/24 22:31 QHS PRN insomnia A&P - Hospitalist Assessment/Plan (1) Sepsis: (2) Hypomagnesemia: (3) Anemia of renal disease: (4) End stage renal disease: (5) Metabolic acidosis: (6) Insulin dependent diabetes mellitus: (7) Hypertension: (8) Diabetes mellitus due to underlying condition, controlled, with diabetic neuropathy: (9) Diabetic ulcer of foot associated with diabetes mellitus due to underlying condition, with fat layer exposed: Plan Sepsis?specific source unclear possible dialysis catheter or foot wounds Chronic right foot wounds present on admit, hx Charcot deformity repair hardwarepresent Presence of tunneled hemodialysis catheter right chest placed 09/16/2023- last accessed 11/20/23 Recent left forearm fistula placement 10/06/2023- not in use yet Recent removal PD catheter abdomen 10/27/2023 -On admit?WBC 19.5, BP 99/56, heart rate 114, lactic acid 1.7. Afebrile. Not given fluid resuscitation due to ESRD with concern for volume overload per documentation -Ceftriaxone, linezolid -peripheral Blood cultures Pending, CXR nonacute, urine culture pending -right foot xray pending, may need MRI r/o osteo -Podiatry consult -hold furosemide and carvedilol for now with sepsis -wound care -patient would benefit from vascular workup of right lower extremity with chronic wounds. MADDI ordered, consider vascular consult dependent on results -ID consult for recommendations -continues pregabalin for neuropathy pain, add tramadol -patient states he takes zinc daily, IV iron monthly. Add Vit C for wound healing. Check prealbumin. Dietitian consult ESRD on hemodialysis // Anemia of CKD Metabolic Acidosis -Nephrology on consult for further management Hypomagnesemia -repleted, trend Chronic conditions 1. HTN, HLD?atorvastatin. Home Carvedilol and furosemide on hold with sepsis 2. T2DM with neuropathy? U500 insulin, pregabalin; hold tirzepatide. Check A1c. SSI coverage and fingerstick 3. Hypothyroid?levothyroxine 4. Morbid obesity, GUSTAVO Attending attestation: Patient was personally seen by me on the day of encounter. I reviewed his history and performed ceja elements of exam and formulated the plan of care and confirmed the nurse practitioner's note above. Documented By: Yasmin Winchester APRN 11/04 03/29 1107 Signed By: <Electronically signed by HARSH Winchester> 11/21/23 1532 <Electronically signed by Arnol Calloway MD> 11/21/23 1750 [facility] Work Phone: 1(279) 586-610403-17-2024 Consult note Author Yocasta Villalba [facility] November 21, 2023 10:16am Note Date/Time November 21, 2023 10: 16am [facility] [address] [place] [address] Nephrology Consult Note Signed Patient: Evans Forte MR#: [id number] : 1970 Acct:[id number] Age/Sex: 53 / M Adm Date: 4 Loc: Room: [address] [place] [address] Type: ADM IN Attending Dr: Arnol Calloway MD Copies to: DO Yocasta Dhillon MD Frederick E Doamekpor, MD~ Providers Consult Date: 11/21/23 Requesting Provider: Arnol Calloway MD Primary Care Provider: Idania Ricketts DO [facility] Reason for Consult: End-stage renal disease care History of Present Illness: This is a 53-year-old male patient with a past medical history of hypertension, hyperlipidemia, end-stage renal disease on TTS hemodialysis schedule at [facility], insulin-dependent diabetes mellitus, obstructive sleep apnea, right foot wound follows with wound clinic. Patient presented with diaphoresis nausea vomiting following hemodialysis session yesterday. In the emergency room he wasfound to have slight low blood pressure with fever. Patient was given IV fluid bolus 30 cc/kg. Blood culture was drawn and patient was given 1 dose of Zyvox and cefepime in the emergency room. Patient has a right IJ tunnel catheter. Blood culture still pending so far negative. Patient stated he is feeling better today. He had full session hemodialysis yesterday. Review of Systems Review of Systems Review of systems: 12 system review is negative today [facility] Medical History (Updated 11/21/23 @ 10:12 by Yocasta Villalba MD) Hypertension Hyperlipidemia End stage renal disease Dependence on renal dialysis Anemia Insulin long-term use Chronic kidney disease, stage 4 (severe) Sleep apnea no machine Pancreatitis Hypothyroid Hyperlipidemia Anemia Dependence on renal dialysis End stage renal disease PD catheter dysfunction Cellulitis Hypertension Neuropathy slim feet-tingling Renal insufficiency Diabetes mellitus, type 2 Surgical History [place] of cardiac [place] [facility] of orthopedic surgery right foot has 14 screws and 3 plates. Family History Mother Breast cancer Cancer Legacy family hx; cancer Father Myocardial infarction Heart disease Grandparent Breast cancer Daughter Crohn's disease Legacy FamHx Relation: Daughter(s) Social History Smoking Status: Never smoker Tobacco Type: smokeless tobacco Substance Use Type: None Meds Medications & Allergies Allergies latex Allergy (Mild, Verified 11/20/23 18:45) Rash vancomycin Allergy (Unknown, Verified 11/20/23 18:45) Rash haloperidol [From Haldol] Adverse Reaction (Verified 11/20/23 18:45) Anxiety Home Medications atorvastatin 20 mg tablet (Lipitor) 20 mg PO QAM 07/15/18 [History Confirmed 11/20/23] fenofibrate nanocrystallized 145 mg tablet (Tricor) 145 mg PO QAM 04/29/20 [History Confirmed 11/20/23] levothyroxine 100 mcg tablet (Synthroid) 100 mcg PO DAILY.AC.BKFAST 04/29/20 [History Confirmed 11/20/23] carvedilol 25 mg tablet 6.25 mg PO BID 07/29/22 [History Confirmed 11/20/23] insulin regular hum U-500 conc 500 unit/mL(3 mL) subcut pen (Humulin R U-500 (Conc) Insulin Kwikpen) 50 unit subcut BID 07/29/22 [History Confirmed 11/20/23] anastrozole 1 mg tablet 1 mg PO QAM 09/16/23 [History Confirmed 11/20/23] calcitriol 0.25 mcg capsule 0.25 mcg PO DAILY with dialysis 09/16/23 [History Confirmed 11/20/23] furosemide 40 mg tablet (Lasix) 80 mg PO BID 09/16/23 [History Confirmed 11/20/23] testosterone 1 % (50 mg/5 gram) transdermal gel packet 1 packet transdermal DAILY 09/16/23 [History Confirmed 11/20/23] calcium acetate(phosphat bind) 667 mg capsule 2,668 mg PO QAC 10/06/23 [History Confirmed 11/20/23] tirzepatide 5 mg/0.5 mL subcutaneous pen injector (Mounjaro) 5 mg subcut QWEEK 10/06/23 [History Confirmed 11/20/23] cyanocobalamin (vitamin B-12) 1,000 mcg tablet (Vitamin B-12) 1,000 mcg PO DAILY10/18/23 [History Confirmed 11/20/23] pregabalin 150 mg capsule 150 mg PO BID neuropathy pain 10/18/23 [History Confirmed 11/20/23] trazodone 50 mg tablet 50 mg PO QHS PRN insomnia 10/18/23 [History Confirmed 11/20/23] Active Medications: Active Medications Acetaminophen (Acetaminophen 325 Mg Tablet) 650 mg PO Q6HR PRN PRN Reason: Pain Scale 1 - 3 or fever Stop: 11/19/24 21:02 Anastrozole (Anastrozole 1 Mg Tablet) 1 mg PO QAM [facility] Stop: 11/20/24 08:59 Last Admin: 11/21/23 08:00 Dose: 1 mg Atorvastatin Calcium (Atorvastatin 20 Mg Tablet) 20 mg PO QAM VINCE Stop: 11/20/24 08:59 Last Admin: 11/21/23 08:00 Dose: 20 mg Calcitriol (Calcitriol 0.25 Mcg Capsule) 0.25 mcg PO TuThSa@0900 [facility] Stop: 11/22/24 08:59 Calcium Acetate (Calcium Acetate 667 Mg Capsule) 2,668 mg PO AC [facility] Stop: 11/20/24 07:29 Last Admin: 11/21/23 07:54 Dose: 2,668 mg Cyanocobalamin (Cyanocobalamin 1,000 Mcg Tablet) 1,000 mcg PO DAILY [facility] Stop: 11/20/24 08:59 Last Admin: 11/21/23 08:00 Dose: 1,000 mcg Heparin Sodium (Porcine) (Heparin 5,000 Unit/Ml Vial) 5,000 unit SUBCUT Q12HR [facility] Stop: 11/20/24 08:59 Last Admin: 11/21/23 08:00 Dose: 5,000 unit Linezolid (Zyvox) 600 mg in 300 mls @ 300 mls/hr IV Q12H [facility] Last Admin: 11/21/23 09:06 Dose: 300 mls/hr Ceftriaxone Sodium (Rocephin) 2 gm in 50 mls @ 100 mls/hr IV Q24H [facility] Insulin Human Regular (Insulin Regular U-500, Human 1,500 Unit/3 Ml Insuln.Pen) 50 unit SUBCUT BID [facility] Stop: 11/20/24 08:59 Last Admin: 11/21/23 08:00 Dose: 50 unit Levothyroxine Sodium (Levothyroxine 100 Mcg Tablet) 100 mcg PO DAILY.0630 [facility] Stop: 11/20/24 06:29 Last Admin: 11/21/23 05:39 Dose: 100 mcg Melatonin (Melatonin 5 Mg Tablet) 5 mg PO QHS PRN PRN Reason: Insomnia Stop: 11/19/24 21:02 Morphine Sulfate (Morphine Sulfate 2 Mg/Ml Vial) 2 mg IV-PUSH Q4H PRN PRN Reason: Pain Scale 8 - 10 Last Admin: 11/21/23 00:25 Dose: 2 mg Testosterone 1 % (50 Mg/5 Gram) Gel In Packet 1 packet TRANSDERML DAILY [facility] Stop: 11/20/24 08:59 Tirzepatide [ Mounjaro] 5 Mg/0.5 Ml Pen Injector 5 mg SUBCUT Tu@0900 [facility] Stop: 11/29/24 08:59 Ondansetron HCl (Ondansetron 4 Mg/2 Ml Vial) 4 mg IV-PUSH Q8H PRN PRN Reason: Nausea And Vomiting Stop: 11/19/24 21:02 Pregabalin (Pregabalin 150 Mg Capsule) 150 mg PO BID VINCE Stop: 05/19/24 08:59 Last Admin: 11/21/23 08:00 Dose: 150 mg Sodium Chloride (Sodium Chloride 0.9 % 10 Ml Syringe) 0 ml IV-PUSH PRN PRN PRN Reason: Flush Stop: 11/19/24 18:43 Last Admin: 11/20/23 19:10 Dose: 10 ml Trazodone HCl (Trazodone 50 Mg Tablet) 50 mg PO QHS PRN PRN Reason: insomnia Stop: 11/19/24 22:31 Exam Physical Exam Vital Signs: Temp Pulse Resp BP Pulse Ox O2 Del Method 98.4 F 82 16 137/74 97 Room Air 11/21/23 07:48 11/21/23 07:48 11/21/23 07:48 11/21/23 07:48 11/21/23 07:48 11/21/23 07:50 Narrative: General: No acute distress Head :atraumatic normocephalic Eyes: PERRLA. Neck: no JVD no bruit. Heart: S1-S2. RRR Respiratory: Clear to auscultation. No wheezing. No crackles Abdomen: Soft, positive bowel sounds,no tenderness. Neurology: Awake alert oriented x3. No focal deficits Extremity. No cyanosis. Trace edema of lower extremities Skin: No skin rash Results - Nephrology Labs 11/21/23 05:37 11/21/23 05:37 Labs: 11/20/23 11/21/23 19:00 05:37 BUN 32 H 40 H Creatinine 6.29 H 7.37 H D Albumin 4.4 Radiology Impressions Impressions - last 24 hours: Impressions Chest X-Ray 11/20/23 18:55 IMPRESSION: No acute cardiopulmonary pathology. Impression dictated by: Taqueria Reese M.D.11/21/2023 8:08 AM Dictation Location: [place] [address] Any impression(s) listed above is documentation that was entered by the reading physician into a diagnostic report(s) for Evans Forte. I have reviewed the report(s) and am incorporating any findings in the treatment plan of this patient where applicable. 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 Patient has been going to [facility] on TTS for hemodialysis. Last hemodialysis session was yesterday (2) Hyperparathyroidism: Plan: Patient on calcitriol for secondary hypothyroidism (3) Anemia of renal disease: Plan: Hemoglobin is at target for end-stage renal disease. (4) Sepsis: Plan: Patient presented with low blood pressure, fever, leukocytosis. Patient was resuscitated with IV fluid and started on wide spectrum antibiotic concerning for central line related bacteremia. Blood culture is negative so far. Patientcurrently on ceftriaxone and Zyvox as the patient has allergy to vancomycin. Patient also has a right foot sole wound and follows with wound clinic Plan * No need for hemodialysis session today. Next hemodialysis session will be Wednesday * Continue wide spectrum antibiotics. Follow blood cultures. Other source of infection could be right foot osteomyelitis. If blood pressure remains negative patient might need right foot MRI rule out osteomyelitis. * Continue PhosLo with meals and calcitriol for secondary hyperparathyroidism * Check CBC and renal function panel before hemodialysis session to adjust order as needed Documented By: Yocasta Villalba MD 11/21/23 1009 Signed By: <Electronically signed by Yocasta Villalba MD> 11/21/23 1016 [facility] Work Phone: 1(104) 697-771103-17-2024 History and physical note Author Buddy Murguia [facility] November 20, 2023 10:57pm Note Date/Time November 20, 2023 10: 38pm [facility] [address] [place] [address] Hospitalist H&P Signed Patient: Evans Forte MR#: [id number] : 1970 Acct:[id number] Age/Sex: 53 / M Adm Date: 4 Loc: 3T Room: [address] [place] [address] Type: ADM IN Attending Dr: Buddy Murguia DO Copies to: DO Buddy Dhillon, ~ HPI DATE OF EXAMINATION: 11/20/23 CHIEF COMPLAINT: nauseas HISTORY OF PRESENT ILLNESS: Mr Forte is a 53-year-old male who with a past medical history of hypertension, hyperlipidemia, ESRD on dialysis T-Th-S, diabetic and insulin-dependent, GUSTAVO, and neuropathy who presents to hospital today with a chief complaint of nausea and diaphoresis after dialysis. He had his dialysis today as he usually would, he states that roughly 2 L of fluid removed per session, his dry weight is 147 kg. He states his blood pressure was lower than normal today however he does not recall any actual numbers. He had no symptoms during dialysis however afterwards he did feel some nausea and lots of emesis per the and was sweating afterwards so he subsequently came to the hospital. He was febrile on presentation, he does have a white count of 19.5 and he was hypotensive at 96/56. He denies any pain or redness around his right HD tunneled catheter though he endorses not being able to see it so we cannot really comment that well on any redness or swelling or erythema around it. Review of Systems Review of Systems All other systems reviewed & are negative unless noted below or in HPI [facility] Medical History (Updated 11/20/23 @ 22:54 by Buddy Murguia DO) Hypertension Hyperlipidemia End stage renal disease Dependence on renal dialysis Anemia Insulin long-term use Chronic kidney disease, stage 4 (severe) Sleep apnea no machine Pancreatitis Hypothyroid Hyperlipidemia Anemia Dependence on renal dialysis End stage renal disease PD catheter dysfunction Cellulitis Hypertension Neuropathy slim feet-tingling Renal insufficiency Diabetes mellitus, type 2 Surgical History History of cardiac catheter[place] [facility] History of orthopedic surgery right foot has 14 screws and 3 plates. Family History Mother Breast cancer Cancer Legacy family hx; cancer Father Myocardial infarction Heart disease Grandparent Breast cancer Daughter Crohn's disease Legacy FamHx Relation: Daughter(s) Social History Smoking Status: Never smoker Tobacco Type: smokeless tobacco Substance Use Type: None Meds Medications and Allergies Allergies latex Allergy (Mild, Verified 11/20/23 18:45) Rash vancomycin Allergy (Unknown, Verified 11/20/23 18:45) Rash haloperidol [From Haldol] Adverse Reaction (Verified 11/20/23 18:45) Anxiety Home Medications atorvastatin 20 mg tablet (Lipitor) 20 mg PO QAM 07/15/18 [History Confirmed 11/20/23] fenofibrate nanocrystallized 145 mg tablet (Tricor) 145 mg PO QAM 04/29/20 [History Confirmed 11/20/23] levothyroxine 100 mcg tablet (Synthroid) 100 mcg PO DAILY.AC.BKFAST 04/29/20 [History Confirmed 11/20/23] carvedilol 25 mg tablet 6.25 mg PO BID 07/29/22 [History Confirmed 11/20/23] insulin regular hum U-500 conc 500 unit/mL(3 mL) subcut pen (Humulin R U-500 (Conc) Insulin Kwikpen) 50 unit subcut BID 07/29/22 [History Confirmed 11/20/23] anastrozole 1 mg tablet 1 mg PO QAM 09/16/23 [History Confirmed 11/20/23] calcitriol 0.25 mcg capsule 0.25 mcg PO DAILY with dialysis 09/16/23 [History Confirmed 11/20/23] furosemide 40 mg tablet (Lasix) 80 mg PO BID 09/16/23 [History Confirmed 11/20/23] testosterone 1 % (50 mg/5 gram) transdermal gel packet 1 packet transdermal DAILY 09/16/23 [History Confirmed 11/20/23] calcium acetate(phosphat bind) 667 mg capsule 2,668 mg PO QAC 10/06/23 [History Confirmed 11/20/23] tirzepatide 5 mg/0.5 mL subcutaneous pen injector (Mounjaro) 5 mg subcut QWEEK 10/06/23 [History Confirmed 11/20/23] cyanocobalamin (vitamin B-12) 1,000 mcg tablet (Vitamin B-12) 1,000 mcg PO DAILY10/18/23 [History Confirmed 11/20/23] pregabalin 150 mg capsule 150 mg PO BID neuropathy pain 10/18/23 [History Confirmed 11/20/23] trazodone 50 mg tablet 50 mg PO QHS PRN insomnia 10/18/23 [History Confirmed 11/20/23] Exam Physical Exam Vital Signs: Temp Pulse Resp BP Pulse Ox O2 Del Method 98.3 F 92 16 127/82 96 Room Air 11/20/23 22:20 11/20/23 22:20 11/20/23 22:20 11/20/23 22:20 11/20/23 22:20 11/20/23 22:20 Narrative: General: Awake alert, no acute distress HEENT: head atraumatic, normocephalic, moist mucous membranes Neck: supple no masses, no lymphadenopathy CVS: regular rate and rhythm, no murmurs or gallops Chest: Dressing is CDI surrounding his right HD tunneled catheter, dressing was removed and skin examined, no surrounding erythema. No oozing. There is a small healing wound approximately 1 inch inferior and lateral to the HD cathetersite that has a 2 to 3 mm scab, patient denies knowing what this is from. Respiratory: clear to auscultation bilaterally, no wheezing or crackles, symmetric expansion GI: soft, nondistended, nontender, positive bowel sounds with no organomegaly Extremity: moves all extremities, no restrictions of movements, no calf tenderness, no edema. He currently has a left surgical scar from AV fistula work that is nonhealing, it is scabbed over and does not appear infected. Neuro: AOx3, CN II-VII intact. Moves all extremities in all planes of motion. Skin: dry, intact no rashes or lesions Results - Hospitalist H&P Lab Results Labs: Laboratory Last Values Corrected WBC 19.5 X10E3/uL (4.1-10.5) H 11/20/23 19:00 Uncorrected WBC Count 19.5 x10E3/uL (4.1-10.5) H 11/20/23 19:00 RBC 4.12 X10E6/uL (3.90-5.60) 11/20/23 19:00 Hgb 12.5 g/dL (13.0-17.0) L 11/20/23 19:00 Hct 38.8 % (38.8-50.0) 11/20/23 19:00 MCV 94.0 fl (83.5-101) 11/20/23 19:00 MCH 30.2 pg (27.5-35.2) 11/20/23 19:00 MCHC 32.2 g/dL (32.5-35.6) L 11/20/23 19:00 RDW 16.1 % (12.0-14.8) H 11/20/23 19:00 Plt Count 280 x10E3/uL (150-450) 11/20/23 19:00 MPV 8.0 fl (6.6-10.1) 11/20/23 19:00 Neut % (Auto) N/A 11/20/23 19:00 Lymph % (Auto) N/A 11/20/23 19:00 Addison % (Auto) N/A 11/20/23 19:00 Eos % (Auto) N/A 11/20/23 19:00 Baso % (Auto) N/A 11/20/23 19:00 Nucleat RBC Rel Count N/A 11/20/23 19:00 Neut # (Auto) N/A 11/20/23 19:00 Lymph # (Auto) N/A 11/20/23 19:00 Addison # (Auto) N/A 11/20/23 19:00 Eos # (Auto) N/A 11/20/23 19:00 Baso # (Auto) N/A 11/20/23 19:00 Lymphocytes % 1 % (18-42) L 11/20/23 19:00 Monocytes % 4 % (2-11) 11/20/23 19:00 Segmented Neutrophils 94 % (50-70) H 11/20/23 19:00 Monocyte Dist Width 25.63 % (0.00-20.00) H 11/20/23 19:00 Reactive Lymphocytes 1 % (0-12) 11/20/23 19:00 Platelet Estimate Normal (Normal) 11/20/23 19:00 Plt Morphology Comment Normal (Normal) 11/20/23 19:00 RBC Morphology N/A 11/20/23 19:00 Anisocytosis Moderate 11/20/23 19:00 Microcytosis Slight 11/20/23 19:00 Stomatocytes Slight 11/20/23 19:00 ESR 66 mm/hr (0-19) H 11/20/23 19:00 PT 12.8 Seconds (9.0-12.9) 11/20/23 19:00 INR 1.1 11/20/23 19:00 APTT 31.0 Seconds (25.1-36.5) 11/20/23 19:00 PHA Creatinine Clear 21.03 11/20/23 19:00 Sodium 138 mmol/L (136-145) 11/20/23 19:00 Potassium 4.2 mmol/L (3.5-5.1) 11/20/23 19:00 Chloride 103 mmol/L (98-107) 11/20/23 19:00 Carbon Dioxide 21.9 mmol/L (21.0-31.0) 11/20/23 19:00 Anion Gap 17.3 mEq/L (6.0-15.0) H 11/20/23 19:00 BUN 32 mg/dL (7-25) H 11/20/23 19:00 Creatinine 6.29 mg/dL (0.70-1.30) H 11/20/23 19:00 Est GFR (CKD-EPI) 9.967 mL/Min 11/20/23 19:00 Glucose 121 mg/dL (70-100) H 11/20/23 19:00 POC Glucose 111 mg/dl 11/20/23 19:24 Lactic Acid 1.7 mmol/L (0.5-2.2) 11/20/23 19:00 Calcium 8.9 mg/dL (8.6-10.3) 11/20/23 19:00 Magnesium 1.6 mg/dL (1.9-2.7) L 11/20/23 19:00 Total Bilirubin 0.6 mg/dl (0.3-1.0) 11/20/23 19:00 AST 24 U/L (13-39) 11/20/23 19:00 ALT 25 U/L (7-52) 11/20/23 19:00 Alkaline Phosphatase 51 U/L (34-104) 11/20/23 19:00 Total Creatine Kinase 135 U/L (30-223) 11/20/23 19:00 Troponin I High Sens 15.2 pg/mL (0.0-20.0) 11/20/23 19:00 C-Reactive Prot, Quant 3.9 mg/dL (0.0-0.5) H 11/20/23 19:00 B-Natriuretic Peptide 15.0 pg/mL (5-100) 11/20/23 19:00 Total Protein 8.3 gm/dL (6.4-8.9) 11/20/23 19:00 Albumin 4.4 gm/dL (3.5-5.7) 11/20/23 19:00 Globulin 3.9 gm/dL 11/20/23 19:00 Albumin/Globulin Ratio 1.1 11/20/23 19:00 TSH 3rd Generation 1.36 uIU/mL (0.45-5.33) 11/20/23 19:00 COVID-19 Clin Com Not detected (Not Detecte) 11/20/23 19:04 Microbiology Results Micro: Microbiology - Results from entire visit 11/20/23 19:04 Nasopharyngeal Respiratory Panel (PCR) - Final Assessment & Plan Assessment/Plan (1) SIRS (systemic inflammatory response syndrome): Plan: ? Patient presents with history of positive for leukocytes, fever, her blood cell count ? Source of infection is presumed to be his right-sided HD tunneled catheter ? On ceftriaxone and linezolid, patient has allergy to vancomycin ? He did receive the 30 cc/kg fluid bolus emergency room to satisfy sepsis, he is currently breathing well, his blood pressure did elevate with this and as he is currently normotensive ? Continue antibiotics ? Cultures were obtained via venous puncture in the emergency room prior antibiotics, there was not a culture obtained from the dialysis catheter, this will be taken tomorrow from a dialysis nurse (2) Vomiting: Plan: ? Zofran as needed, see above (3) Leukocytosis: Plan: See above (4) Dependence on renal dialysis: Plan: ? Nephrology consulted, dialysis days are Wednesday, , Wednesday (5) Metabolic acidosis: Plan: See above (6) Hypomagnesemia: Plan: He received 4 g mag sulfate tonight, recheck in the morning (7) Diabetes: Plan: ? Patient glucose is well-controlled upon admission, he is okay to use his home Dexcom, continue home medications ? Diabetic diet Plan ? DVT prophylaxis addressed ? Diabetic diet ? Full code IP vs OBS Justification Based on differential dx, clinical care plan, and risk of adverse events, if untreated, in my clinical judgement this patient requires an acute care setting as: INPATIENT because of an expectation of an over 2 midnight stay. Estimated length of stay (# of days): 3 Documented By: Buddy Murguia DO 11/20/23 Signed By: <Electronically signed by Buddy Murguia DO> 11/20/23 3334 [facility] Work Phone: 1(388) 203-479102-07-2024 History of Present illness Narrative* Flakito Smitha High, DO - 10/13/2023 11:15 AM EST Images from the original note were not included. Evans Forte 1970 Evans Forte is a 53 y.o. male presents with chief complaint of PD cath removal (Last seen 11/2022 for PD cath Placement) HPI: HPI Patient had no problems with his peritoneal dialysis catheter but he just was not getting very gooddialysis done with that. He was gaining fluid weight and he was having to do the dialysis for up to15 hours. Decision was made to switch him to hemodialysis which has been working much better. He would like to get his peritoneal dialysis removed. He has a catheter as well as a fistula. SUBJECTIVE: MEDICATIONS: ALLERGIES Current Outpatient Medications Medication Instructions anastrozole (Arimidex) 1 MG chemo tablet take 1 tablet by mouth every morning (SWALLOW WHOLE WITH ADRINK OF WATER) atorvastatin (Lipitor) 20 MG tablet take 1 tablet by mouth every morning b complex-folic acid tablet 1 tablet, Oral, 2 times daily calcitriol (ROCALTROL) 0.25 mcg, Oral, Daily calcium acetate (Phoslo) 667 MG capsule take 2 capsules by mouth with meals three times a day then take 1... (REFER TO PRESCRIPTION NOTES). carvedilol (COREG) 25 mg, Oral, 2 times daily with meals cholecalciferol (D3-5) 5,000 Units tablet Daily RT Continuous Blood Gluc Sports Administrator (Dexcom G7 Sports Administrator) device Every 24 hours Continuous Blood Gluc Sensor (Dexcom G7 Sensor) misc as directed every 10 days for 90 days furosemide (LASIX) 80 mg, Oral, 2 times daily insulin regular (HumuLIN R U-500 KWIKPEN) 500 UNIT/ML CONCENTRATED injection Inject 110 units for breakfast subcutaneous and 90 units dinner levothyroxine (SYNTHROID, LEVOXYL) 100 mcg, Oral, Daily before breakfast Mounjaro 7.5 mg, Subcutaneous, Weekly ondansetron ODT (Zofran-ODT) 4 MG disintegrating tablet dissolve 1 tablet ON TONGUE every 8 hours for 3 days pregabalin (LYRICA) 150 mg, Oral, Daily before breakfast Testosterone 1.62 % gel apply 2 PUMPS topically every morning traZODone (DESYREL) 50 mg, Oral, Nightly Allergies Allergen Reactions Latex Rash Other Reaction(s): Unknown If on for long periods of time Vancomycin Hives Other Reaction(s): Unknown Other reaction(s): Unknown Haloperidol Anxiety Kimble Oil GI intolerance Runny nose, watery eyes Wound Dressing Adhesive Rash PAST MEDICAL HISTORY: SOCIAL HISTORY SURGICAL HISTORY: Past Medical History: Diagnosis Date Allergies CKD (chronic kidney disease) Diabetes ([facility]) Family history of cancer Glaucoma ([facility]) History of being hospitalized 02/05/2017 [facility] - Discharged 02/07/17 Hyperlipidemia ([facility]) Hypertension ([facility]) Hypothyroidism (acquired) ([facility]) GUSTAVO (obstructive sleep apnea) Osteomyelitis of left foot ([facility]) PAD (peripheral artery disease) ([facility]) Pancreatitis x3 Subcutaneous mass of back 03/02/2023 Social History Tobacco Use Smoking status: Never Smokeless tobacco: Never Substance Use Topics Alcohol use: Never Comment: caffeine: more than 4 cups per day coffee Drug use: Never Past Surgical History: Procedure Laterality Date FOOT SURGERY Right charcot OTHER SURGICAL HISTORY PD cath placement OTHER SURGICAL HISTORY 2023 Dialysis port placed by TOE AMPUTATION Left toe partial amputation d/t infection REVIEW OF SYMPTOMS: Review of Systems Constitutional: Negative for appetite change and fatigue. HENT: Negative for trouble swallowing. Respiratory: Negative for cough and shortness of breath. Cardiovascular: Negative for chest pain. Gastrointestinal: Negative for abdominal pain. Genitourinary: Negative for hematuria. Musculoskeletal: Negative for arthralgias. Neurological: Negative for seizures. Hematological: Negative for adenopathy. OBJECTIVE: Visit Vitals Ht 6' 2 Wt 340 lb BMI 43.65 kg/m Smoking Status Never BSA 2.84 m Physical Exam Constitutional: Appearance: Normal appearance. He is not ill-appearing. HENT: Head: Atraumatic. Eyes: General: No scleral icterus. Cardiovascular: Rate and Rhythm: Regular rhythm. Heart sounds: Normal heart sounds. Pulmonary: Breath sounds: No wheezing. Abdominal: General: There is no distension. Tenderness: There is no abdominal tenderness. Comments: Peritoneal dialysis catheter in the left lower quadrant no cellulitis Musculoskeletal: Right lower leg: No edema. Left lower leg: No edema. Neurological: Mental Status: He is alert. ASSESSMENT AND PLAN: Assessment/Plan Diagnoses and all orders for this visit: Peritoneal dialysis catheter dysfunction, subsequent encounter ([facility]) Plan is for removal of peritoneal dialysis catheter. I discussed with him the procedure and the risks and potential complications including but not limited to bleeding, infection, pain, possible needfor abdominal exploration if can not remove the catheter easily, possible foreign body retained. Heunderstands and he would like to proceed. No follow-ups on file. documented in this encounterTexas [facility] [id number] Evaluation note* Encounter Date Diagnosis Assessment Notes Treatment Notes Treatment Clinical Notes Sep, End stage renal disease (ICD-10 - N18.6) Sep, Dependence on renal dialysis (ICD-10 - Z99.2) Sep, Other End-stage renal disease on dialysis I went over dialysis access options with this patient. We discussed the nature of autologous fistula was and prosthetic graft placement. He is quite young and appears to have adequate anatomy for creation of a Sandra fistula. The forearm basilic vein in the upper arm basilic vein are also potentially usable. We will proceed with creation of a left Sandra fistula provided ultrasound findings are confirmed and surgery. If the veins were adequate he will get a prosthetic graft to time for catheter removal. He understands and agrees with that plan [employer] Other 01-11-2024 History and physical note Author Ramirez Jean [facility] September 16, 2023 1:55pm Note Date/Time September 16, 2023 1 :56pm [facility] [address] [place] [address] Vascular Surgery H&P Signed Patient: Evans Forte MR#: [id number] : 1970 Acct:[id number] Age/Sex: 53 / M Adm Date: 4 Loc: ME Room: Type: [facility] Attending Dr: Ramirez Jean MD Copies to: DO Ramirez Dhillon MD~ Date of Service: 09/16/2023 HPI History of Present Illness Chief complaint: Need for hemodialysis access HPI: Mr. Forte is a 53 year old male with end-stage renal disease who has had a peritoneal catheter since November 2022. He has failed peritoneal dialysis and requested urgent placement of a tunneled dialysis catheter. He has not had prior hemodialysis access. He has never had a fistula. He has been on Augmentin for 3 days orally for an ear infection. Review of Systems Review of Systems All other systems reviewed & are negative unless noted below or in HPI [facility] Medical History (Updated 09/16/23 @ 11:02 by Teresa Cherry RN) Cellulitis Diabetes mellitus, type 2 Hypertension Neuropathy slim feet-tingling PD catheter dysfunction Renal insufficiency Surgical History History of orthopedic surgery right foot has 14 screws and 3 plates. Family History (Updated 09/16/23 @ 11:03 by Teresa Cherry RN) Mother Breast cancer Father Myocardial infarction Grandparent Breast cancer Social History Smoking Status: Never smoker Tobacco Type: cigarettes Substance Use Type: None Substance Abuse Comment: quit chewing tobacco about 1 month ago Meds Medications and Allergies Allergies vancomycin Allergy (Verified 09/16/23 11:28) Rash haloperidol [From Haldol] Adverse Reaction (Verified 11/06/22 00:55) Anxiety Home Medications atorvastatin 20 mg tablet (Lipitor) 20 mg PO DAILY 07/15/18 [History Confirmed 09/16/23] fenofibrate nanocrystallized 145 mg tablet (Tricor) 145 mg PO DAILY 04/29/20 [History Confirmed 09/16/23] levothyroxine 100 mcg tablet (Synthroid) 100 mcg PO DAILY.AC.BKFAST 04/29/20 [History Confirmed 09/16/23] carvedilol 25 mg tablet 25 mg PO BID 07/29/22 [History Confirmed 09/16/23] insulin regular hum U-500 conc 500 unit/mL(3 mL) subcut pen (Humulin R U-500 (Conc) Insulin Kwikpen) 75 unit subcut DAILY 07/29/22 [History Confirmed 09/16/23] insulin regular hum U-500 conc 500 unit/mL(3 mL) subcut pen (Humulin R U-500 (Conc) Insulin Kwikpen) 100 unit subcut QAM 07/29/22 [History Confirmed 09/16/23] pregabalin 50 mg capsule (Lyrica) 50 mg PO DAILY 10/10/22 [History Confirmed 09/16/23] sodium bicarbonate 650 mg tablet 1,300 mg PO BID 30 days #120 tabs 11/07/22 [Rx Confirmed 09/16/23] sodium zirconium cyclosilicate 10 gram oral powder packet (Lokelma) 10 g PO DAILY 30 days #30 ea 11/07/22 [Rx Confirmed 09/16/23] trazodone 50 mg tablet 50 mg PO QHS 30 days #30 tabs 11/07/22 [Rx Confirmed 09/16/23] amoxicillin 875 mg-potassium clavulanate 125 mg tablet 1 tab PO BID 09/16/23 [History Confirmed 09/16/23] anastrozole 1 mg tablet 1 mg PO DAILY 09/16/23 [History Confirmed 09/16/23] calcitriol 0.25 mcg capsule 0.25 mcg PO DAILY 09/16/23 [History Confirmed 09/16/23] furosemide 40 mg tablet (Lasix) 80 mg PO DAILY 09/16/23 [History Confirmed 09/16/23] testosterone 1 % (50 mg/5 gram) transdermal gel packet 1 packet transdermal DAILY 09/16/23 [History Confirmed 09/16/23] Exam Physical Exam Vital Signs: Temp Pulse Resp BP Pulse Ox O2 Del Method O2 Flow Rate 97.9 F 68 18 128/60 92 L Room Air 10 09/16/23 13:24 09/16/23 13:44 09/16/23 13:44 09/16/23 13:44 09/16/23 13:44 09/16/23 13:34 09/16/23 13:24 Narrative: Pleasant large male in no acute distress. Chest wall does not show evidence of prior catheter placement. Peritoneal catheter is in place. Results Labs 09/16/23 10:56 09/16/23 10:56 Labs: Laboratory Results - last 24 hr 09/16/23 09/16/23 09/16/23 10:56 10:56 11:02 Corrected WBC 11.3 H Uncorrected WBC Count 11.3 H RBC 2.83 L Hgb 8.7 L Hct 26.0 L MCV 91.9 MCH 30.7 MCHC 33.4 RDW 14.9 H Plt Count 247 MPV 8.0 Neut % (Auto) 74.1 Lymph % (Auto) 14.7 Addison % (Auto) 7.3 Eos % (Auto) 3.5 Baso % (Auto) 0.4 Nucleat RBC Rel Count 0.0 Neut # (Auto) 8.4 H Lymph # (Auto) 1.7 Addison # (Auto) 0.8 Eos # (Auto) 0.4 Baso # (Auto) 0.0 PHA Creatinine Clear 12.72 Sodium 143 Potassium 4.3 Chloride 106 Carbon Dioxide 23.5 Anion Gap 17.8 H BUN 110 H Creatinine 10.67 H Est GFR (CKD-EPI) 5.286 Glucose 93 POC Glucose 96 Calcium 8.2 L 09/16/23 13:35 Corrected WBC Uncorrected WBC Count RBC Hgb Hct MCV MCH MCHC RDW Plt Count MPV Neut % (Auto) Lymph % (Auto) Addison % (Auto) Eos % (Auto) Baso % (Auto) Nucleat RBC Rel Count Neut # (Auto) Lymph # (Auto) Addison # (Auto) Eos # (Auto) Baso # (Auto) PHA Creatinine Clear Sodium Potassium Chloride Carbon Dioxide Anion Gap BUN Creatinine Est GFR (CKD-EPI) Glucose POC Glucose 103 Calcium A&P - Vascular (1) Chronic kidney disease with end stage renal disease on dialysis due to type 2 diabetes mellitus: Plan I will place a tunneled hemodialysis catheter for this patient. I showed him a catheter so that he would understand the nature of the procedure. We will placeit on his right side since he has not had prior catheter-based access. In the near future we will have him in the office for vein mapping and discussion of fistula creation Documented By: Ramirez Jean MD 09/16/23 135 3 Signed By: <Electronically signed by MD Ramirez Jean> 09/16/23 1355 [facility] Work Phone: [phone]) 547-487610-16-2023 Evaluation note* Encounter Date Diagnosis Assessment Notes Treatment Notes Treatment Clinical Notes Jun, Type 2 diabetes mellitus with diabetic chronic kidney disease (ICD-10 - E11.22) [employer] Other 10-11-2023 Evaluation note* Encounter Date Diagnosis Assessment Notes Treatment Notes Treatment Clinical Notes Jun, Type 2 diabetes mellitus with diabetic chronic kidney disease (ICD-10 - E11.22) Managing type 2 diabetes material was published Kary Mercado 06/16/2023 12:15:59 PM >Blood glucose 58. Patient provided with 4 oz of apple juice MercadoKary ramos 06/16/2023 12:30:36 PM >Blood glucose 88. Patient released from office. driving. 1. Type 2 diabetes with A1c of 6.7% 2. Blood glucose levels variable. Pt was given x 2 packets of fruit snacks d/t pt glucose 80's and pt reports didn't eat and took u500 60 units this morning and reports didn't eat breakfast. See above. Reviewed with pt if not eating would recommend he only take half of scheduled dose of u500 to reduce risk of hypoglycemia. Reviewed with pt u500 insulin dosing/corrective scale 5:50 ac bk/supper. Pt on PD using 2 1/2 green solutions equal to 75-125 grams of cho through the night which causing higher glucose trend. Pt interested in insulin pump. Pt agreeable to contacting pump rep. to order tandem control iq insulin pump dexcom g6 cgm. Recommend switching to u100 in insulin pump pt averaging 160 units/day will need to change site/resevoir q2 days. Day to day variations in schedule, mealtimes and activity level, which confound the degree of regimentation required to self-manage glycemia with multiple insulin injections. 3. Patient is alert, oriented and receptive to making changes or counseling Notes: Seen for 60 minutes for an assessment of current glucose pattern, changes in treatment plan, counseling and coordination of care related to diabetes, risks, and benefits of treatment, medications, side effects. Given handouts to reinforce concepts reviewed during counseling, see scanned notes. TOPICS REVIEWED: 1. Time was spent reviewing: a. Basic concepts of diabetes, progressive beta cell , concepts of basal/bolus/correc tive insulin requirements. Basal: The goal is fasting blood glucose of 90-130mg. If fasting blood glucose starts to run under 100mg 3x's/ week, decrease dose by 10%. Bolus: The goal is to hold the blood glucose level steady meal to meal. If pt. is going to have increased physical activity after a meal, decrease the schedule meal dose prior to the activity by 30-50%. If pt. skips a meal do not take this dose. Correction: The goal is to correct an elevated glucose back into the 100-150mg range b. Nutrition: Concepts of healthy diet reviewed, encouraged to decrease saturated fat in diet and increase non-starchy vegetables and fruits in diet. BMI: Pt. needs to select one small change to decrease caloric intake or increase physical activity to help decrease weight. c. Correct treatment of hypoglycemia, carry a glucose source at all times on your person, in vehicles, and at bedside. Can use glucose tablets/4, four ounces of pop or juice equal to 15 G of carbohydrate. Blood glucose should be 100 mg/dl or higher when driving. d. ADA glucose goals for age and medical complexity reviewed e. Patient questions addressed 2. Activity/exercise: Encouraged to start any form of physical activity. Start low level and increase slowly to a minimal goal of 150 minutes/week. Limit activity to what is allowed by other issues such as cardiac, pulmonary or orthopedic restrictions. 3. Standards of care: Reminded to have an annual dilated eye exam, A1C every 3 months, urine testing for microalbumin once/year, check feet daily and report any cuts or sores that do not appear to be healing. 4. Meter: Plan to check blood glucose: Please check blood glucose levels 4 times/day. Back to back meals reveal effectiveness of bolus dosing.5. [facility]. Contact office if any issues or concerns with patterns of hypoglycemia, hyperglycemia, or diabetes medication issues. 6. Prescriptions: Sent gvoke to [facility]. Sample dexcom g7 given. 7. Prescriptions will not be filled unless you are compliant with follow up appointments or have a follow appointment scheduled as per ordered by your provider. Refills should be requested at the time of your visit. Jun, Insulin long-term use (ICD-10 - Z79.4) Jun, Dietary counseling and surveillance (ICD-10 - Z71.3) Maintaining a healthful weight material was published see above Jun, HTN (hypertension) (ICD-10 - I10) Hypertension material was published Jun, Hyperlipidemia (ICD-10 - E78.5) Managing your cholesterol material was published Jun, BMI 40.0-44.9, adult (ICD-10 - Z68.41) Making healthy choices at restaurants material was published Jun, High risk medication use (ICD-10 - Z79.899) Patient Education for Humulin Regular 500 Concentrated Insulin: 1. U500 is a slow loading insulin that contains both basal/liver glucose coverage and bolus/carbohydrate mealtime coverage. When possible, try to take this medication 30-60 minutes before you eat the meal. This allows the insulin to line up better with the rise in glucose after eating a meal. Some patients take this insulin at mealtime only, others need to take a small dose at bedtime to help control the glucose from the liver overnight. a. The goal is to have a fasting blood glucose in the 100/150 mg range and a bedtime blood glucose in the 150/200 mg range. Please contact our office if you have a pattern or unexplained episodes of hypoglycemia or hyperglycemia/abov e 200 mg on a regular basis. b. If you skip a meal, please take 30-50% less of the schedule dose. You do not need the food portion but you still need coverage for glucose from the liver. If you decide to eat the meal later on, take the other half of the dose. 2. If you are going to have physical activity after the meal decrease your dose by 30 to 50% at the meal prior to the activity. Physical activity will bring the blood glucose down. If the usual dose is correct for when you are not active, it will be too much when you add activity into your schedule. 3. When you take a set dose of U500, this means there is a set dose for the sugar from the liver and a set dose for the sugar from your carbohydrates. Please try to be as carbohydrate consistent as possible for each time frame of the day. If you are going to eat a smaller carbohydrate meal, subtract 5 units. If you are going to eat a larger carbohydrate meal, add 5 units. 4. Carry a glucose source such as tablets, juice, regular pop on you, in your car, and at the bedside for easy access in case you would have symptoms of hypoglycemia. Blood glucose should be 100 mg/dl or higher when driving. 5. If you have any issues with insulin supplies through your pharmacy, please contact our office at [phone]. Jun, Hypoglycemia (ICD-10 - E16.2) Low blood glucose and diabetes material was published Jun, CKD (chronic kidney disease) stage 5, GFR less than 15 ml/min (ICD-10 - N18.5) Living with chronic kidney disease material was published keep f/u with nephrology Jun, Other [facility]. He stated that he was previously using the G7 system but ias out of sensors and he got a new phone. He was unable to recover the password for his old Dexcom account. I was sarita to set up a new account using his Phone number and Password1 as a password. His clarity accoutn was linked with the office account. We attempted to place a sensor on the back of his right arm but it fell off, we then tried to place it on his right upper abdomenal quad but the filiment didn't go into his skin. We them placed a 3rd sensor on his abdomen on the left side and it warmed up and worked. I discussed with him the Tandem insulin pump faheem the is interested in. HIs questions wree answered. 60 minutes were spent educating the patient and setting up his Dexcom system on his phone by George Vasques RN, [facility]. [employer] Other 03-31-2023 Evaluation note* Encounter Date Diagnosis Assessment Notes Treatment Notes Treatment Clinical Notes Nov, Type 2 diabetes conrad itus with diabetic chronic kidney disease (ICD-10 - E11.22) His blood sugars are within acceptable range. I have advised him to continue to follow with PCP for DM management. He was taken off of the lisinopril due to the hyperkalemia. Nov, CKD (chronic kidney disease) stage 5, GFR less than 15 ml/min (ICD-10 - N18.5) He has CKD due to the diabetic nephropathy and hypertensive nephrosclerosis. Patient now has been doing dialysis at home after finishing his PD training. Nov, Hypertensive chronic kidney disease with stage 1 through stage 4 chronic kidney disease, or unspecified chronic kidney disease (ICD-10 - I12.9) His blood pressure is controlled. Continue hydralazine 25 mg p.o. twice daily. Continue current dose of the nifedipine, Lasix and carvedilol. I have advised him to monitor the blood pressure at home and call office if stays above 140/90 mmHg. Nov, Secondary hyperparathyroidism (ICD-10 - N25.81) His phosphorus, PTH and calcium are within normal limits. He has Vit D deficiency Increase oral Vit D . I provided him a low phosphorus diet information. 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 He has adequate iron stores and normal B12 and folate level. Continue oral Iron Nov, Persistent proteinur ia (ICD-10 - R80.1) He has nephrotic range proteinuria likely due to the diabetic nephropathy. He has a mildly elevated free light chain ratio likely due to CKD. He has unremarkable SPEP, UPEP, serum and urine immunofixation. Nov, Hyperkalemia (ICD-10 - E87.5) His potassium has improved with dietary modification and discontinuation of lisinopril. I have advised him to take low potassium diet. [employer] Other 03-04-2023 Progress note Author Yocasta Villalba [facility] November 07, 2022 2:43pm Note Date/Time November 07, 2022 2:43 pm [facility] [address] [place] [address] Nephrology Progress Note Signed Patient: Evans Forte MR#: [id number] : 1970 Acct:[id number] Age/Sex: 52 / M Adm Date: 3 Loc: Room: [address] [place] [address] Type: ADM IN Attending Dr: Chintan Brewster DO Copies to: ~ Date of Service: 11/07/2022 Subjective Subjective Narrative: This is a 52-year-old male patient with a past sickle history of chronic kidney disease stage V from diabetic nephropathy, hypertension, morbid obesity, anemia of renal disease, neuropathy. 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 Patient is known to Dr. Waters and he has been following with him for CKD stage V. Lab workin the emergency room showed potassium 5.3 mmol/L. Patient was giving calcium chloride along with Lokelma and 1 dose of the Lasix. Patient also started on IVfluid normal saline 75 cc/h. Serum potassium this morning 4.6 mmol/L. Renal team was consulted for CKD stage V, hypertension and electrolyte imbalance management. Noted high blood pressure this morning. Patient has been on the same home medications Coreg, hydralazine, nifedipine. Noted metabolic acidosis with serum bicarb level 16.7 mmol/L Patient denied nausea vomiting. He has mild edema of lower extremity. No itchiness no chest pain. No cough. Has been having nasal congestion with headache for the last few days. Noted mild fever this morning. White cell count 13 Interval history: Patient was seen examined his room. PD catheter was placed yesterday. Patient has mild pain at the surgical site Patient was not given Lokelma yesterday after PD catheter placement. Potassium up to 6 mmol/L Serum creatinine slightly stable from yesterday at 6.6 mg deciliter and GFR 9 hemoglobin. Denied nausea vomiting. No shortness of breath. No metallic taste. No asterixis. No chest pain. Respiratory status low at 12%. Patient started on loading dose of Ferrlecit 250mg x4 Noted high blood pressure. Exam Physical Exam Vital Signs: Temp Pulse Resp BP Pulse Ox O2 Del Method O2 Flow Rate 97.8 F 82 16 186/89 H 97 Room Air 3 11/07/22 11:21 11/07/22 11:21 11/07/22 11:21 11/07/22 12:12 11/07/22 11:21 11/07/22 11:21 11/06/22 14:55 Narrative: General: No acute distress Head :atraumatic normocephalic Eyes: PERRLA. Neck: no JVD no bruit. Heart: S1-S2. RRR Respiratory: Clear to auscultation. No wheezing. No crackles Abdomen: Soft, positive bowel sounds,no tenderness. PD catheter in place Neurology: Awake alert oriented x3. No focal deficits Extremity. No cyanosis. Trace edema of lower extremities Skin: No skin rash Objective Intake and Output I&O: Intake & Output 11/04/22 11/05/22 11/06/22 11/07/22 23:59 23:59 23:59 23:59 Intake Total 1860 / 1860 2260 / 2260 1050 / 1050 Balance 1860 / 1860 2260 / 2260 1050 / 1050 Weight 145 kg 145 kg 144.9 kg Meds and Allergies Meds: Active Medications Hydrocodone Bitart/Acetaminophen (Hydrocodone/Acetaminophen 5-325 Mg Tablet) 1 tab PO Q4H PRN PRN Reason: Pain Last Admin: 11/06/22 18:38 Dose: 1 tab Hydrocodone Bitart/Acetaminophen (Hydrocodone/Acetaminophen 5-325 Mg Tablet) 2 tab PO Q4H PRN PRN Reason: pain Ascorbic Acid (Ascorbic Acid 500 Mg Tablet) 500 mg PO DAILY VINCE Stop: 11/05/23 08:59 Last Admin: 11/07/22 08:38 Dose: 500 mg Atorvastatin Calcium (Atorvastatin 20 Mg Tablet) 20 mg PO DAILY VINCE Stop: 11/05/23 08:59 Last Admin: 11/07/22 08:37 Dose: 20 mg Carvedilol (Carvedilol 25 Mg Tablet) 25 mg PO BID VINCE Stop: 11/04/23 20:59 Last Admin: 11/07/22 08:38 Dose: 25 mg Docusate Sodium (Docusate 100 Mg Capsule) 100 mg PO BID VINCE Stop: 11/06/23 20:59 Last Admin: 11/07/22 08:40 Dose: Not Given Emollient Ointment (Petrolatum,White 99 Gm Oint...G.) 1 applic TOPICAL DAILY VINCE Stop: 11/05/23 09:59 Last Admin: 11/07/22 08:39 Dose: 1 applic Fenofibrate (Fenofibrate Nanocrystallized 145 Mg Tablet) 145 mg PO DAILY VINCE Stop: 11/05/23 08:59 Last Admin: 11/07/22 08:37 Dose: 145 mg Ferrous Sulfate (Ferrous Sulfate 324 Mg Tablet.Dr) 324 mg PO DAILY VINCE Stop: 11/05/23 08:59 Last Admin: 11/07/22 08:38 Dose: 324 mg Folic Acid (Cyanocobalamin/Fa/Pyridoxine 1 Tab Tablet) 1 tab PO DAILY VINCE Stop: 11/05/23 08:59 Last Admin: 11/07/22 08:38 Dose: 1 tab Furosemide (Furosemide 40 Mg/4 Ml Vial) 40 mg IV-PUSH DAILY.8A VINCE Stop: 11/07/23 09:54 Last Admin: 11/07/22 11:23 Dose: 40 mg Heparin Sodium (Porcine) (Heparin 5,000 Unit/Ml Vial) 5,000 unit SUBCUT Q8HR VINCE Stop: 11/05/23 13:59 Last Admin: 11/07/22 13:45 Dose: 5,000 unit Hydralazine HCl (Hydralazine 20 Mg/Ml Vial) 10 mg IV-PUSH Q4H PRN PRN Reason: if SBP > 185 Stop: 11/04/23 23:30 Last Admin: 11/07/22 12:13 Dose: 10 mg Hydralazine HCl (Hydralazine 50 Mg Tablet) 100 mg PO TID [facility] Stop: 11/07/23 13:59 Last Admin: 11/07/22 13:44 Dose: 100 mg Ferric Sodium Gluconate Complex 250 mg/ Sodium Chloride 270 mls @ 135 mls/hr IVQAM [facility] Stop: 11/09/22 09:01 Last Admin: 11/07/22 09:49 Dose: 135 mls/hr Insulin Human Regular (Insulin Regular U-500, Human 1,500 Unit/3 Ml Insuln.Pen) 45 unit SUBCUT DAILY@1700 [facility] Stop: 11/05/23 16:59 Last Admin: 11/06/22 17:13 Dose: 45 unit Insulin Human Regular (Insulin Regular U-500, Human 1,500 Unit/3 Ml Insuln.Pen) 70 unit SUBCUT DAILY@0600 [facility] Stop: 11/05/23 05:59 Last Admin: 11/07/22 05:54 Dose: 70 unit Labetalol HCl (Labetalol 100 Mg/20 Ml Vial) 10 mg IV-PUSH Q10M PRN PRN Reason: Hypertension Stop: 11/04/23 16:31 Last Admin: 11/04/22 21:41 Dose: 10 mg Levothyroxine Sodium (Levothyroxine 100 Mcg Tablet) 100 mcg PO DAILY@0630 [facility] Stop: 11/05/23 06:29 Last Admin: 11/07/22 05:55 Dose: 100 mcg Lorazepam (Lorazepam 2 Mg/Ml Vial) 0.5 mg IV-PUSH Q4H PRN PRN Reason: Agitation Stop: 05/05/23 16:50 Last Admin: 11/06/22 17:11 Dose: 0.5 mg Nifedipine (Nifedipine Er.24hr 90 Mg Tab.Er.24) 90 mg PO DAILY [facility] Stop: 11/05/23 08:59 Last Admin: 11/07/22 08:39 Dose: 90 mg Pregabalin (Pregabalin 50 Mg Capsule) 50 mg PO DAILY [facility] Stop: 05/04/23 08:59 Last Admin: 11/07/22 08:38 Dose: 50 mg Sodium Bicarbonate (Sodium Bicarbonate 650 Mg Tablet) 1,300 mg PO BID VINCE Stop: 11/05/23 10:29 Last Admin: 11/07/22 08:38 Dose: 1,300 mg Sodium Chloride (Sodium Chloride 0.9 % 10 Ml Syringe) 0 ml IV-PUSH PRN PRN PRN Reason: Flush Stop: 11/04/23 13:53 Last Admin: 11/07/22 12:14 Dose: 20 ml Sodium Chloride (Sodium Chloride 0.9 % 10 Ml Vial.Pf) 10 ml INJECTION Q4H PRN PRN Reason: Ativan dilution Stop: 11/06/23 16:50 Last Admin: 11/06/22 17:11 Dose: 10 ml Sodium Zirconium Cyclosilicate (Sodium Zirconium Cyclosilicate 10 Gm Powd.Pack) 10 gm PO TID VINCE Stop: 11/07/23 13:59 Last Admin: 11/07/22 13:44 Dose: 10 gm Trazodone HCl (Trazodone 50 Mg Tablet) 50 mg PO QHS VINCE Stop: 11/06/23 20:59 Last Admin: 11/06/22 21:32 Dose: 50 mg Vitamin A (Vitamin A 3,000 Mcg (10,000 Units) Capsule) 3,000 mcg PO DAILY VINCE Stop: 11/05/23 08:59 Last Admin: 11/07/22 08:38 Dose: 3,000 mcg Vitamin D (Cholecalciferol 25 Mcg (1,000 Units) Tablet) 50 mcg PO DAILY VINCE Stop: 11/05/23 08:59 Last Admin: 11/07/22 08:37 Dose: 50 mcg Zinc Gluconate (Zinc Gluconate 50 Mg Tablet) 50 mg PO DAILY VINCE Stop: 11/05/23 08:59 Last Admin: 11/07/22 08:39 Dose: 50 mg Allergies haloperidol [From Haldol] Adverse Reaction (Verified 11/06/22 00:55) Anxiety Results Labs 11/07/22 04:37 11/07/22 04:37 Labs: 11/07/22 04:37 BUN 69 H Creatinine 6.67 H Radiology Impressions Impressions - last 24 hours: Any impression(s) listed above is documentation that was entered by the reading physician into a diagnostic report(s) for Evans Forte. I have reviewed the report(s) and am incorporating any findings in the treatment plan of this patient where applicable. A&P - Nephrology Assessment/Plan (1) CKD (chronic kidney disease) stage 5, GFR less than 15 ml/min: Plan: Patient is known to Dr. 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 Patient has reached end-stage disease and he needs to be on renal placement therapy. Patient has opted for peritoneal dialysis. I consulted general surgeon for PD catheter placement. PD catheter was placed November 06 Thereis no urgent need to start renal placement therapy. I believe the patient can wait 2 weeks to start t PD training (2) Insulin dependent diabetes mellitus: Plan: Patient has diabetes for many years. Currently on insulin as directed by the primary service (3) Hypertensive chronic kidney disease with stage 1 through stage 4 chronic kidney disease, or unspecified chronic kidney disease: Plan: Likely due to CKD progression. Volume status is well controlled. Blood pressurehas been elevated. I will increase hydralazine to 100 mg 3 times daily and start taking Lasix 40 mg daily. Continue to monitor blood pressure and adjust blood pressure medications as (4) Hyperkalemia: Plan: Likely from metabolic acidosis and advanced CKD. Patient was not given Lokelma yesterday. Potassium level is 6.0 mmol/L. I will give the patient 1 dose of 40Lasix IV and start again Lokelma 10 mg 3 times daily. I will check potassium level later today (5) Metabolic acidosis: Plan: Likely from advanced CKD. Continue sodium bicarb dose at 1300 mg twice daily. Check serum bicarb level in a.m. Documented By: Yocasta Villalba MD 11/07/22 1436 Signed By: <Electronically signed by Yocasta Villalba MD> 11/07/22 1443 [facility] Work Phone: [phone] 297-375203-04-2023 Progress note Author Masoud Maria [facility] November 07, 2022 8:40am Note Date/Time November 07, 2022 8:40 am [facility] [address] [place] [address] General Surgery Progress Note Signed Patient: Evans Forte MR#: [id number] : 1970 Acct:[id number] Age/Sex: 52 / M Adm Date: 3 Loc: 4P Room: 7C9742-0 Type: ADM IN Attending Dr: Chintan Brewster DO Copies to: ~ Date of Service: 11/07/2022 Subjective Subjective Patient reports: no new complaints HPI: Patient is sitting out of bed postop day #1 from PD dialysis insertion. He has no abdominal pain and is doing well. Allergies & Medications Medications and Allergies Allergies haloperidol [From Haldol] Adverse Reaction (Verified 11/06/22 00:55) Anxiety Home Medications atorvastatin 20 mg tablet (Lipitor) 20 mg PO DAILY 07/15/18 [History Confirmed 11/04/22] cholecalciferol (vitamin D3) 50 mcg (2,000 unit) capsule (Vitamin D3) 2,000 unitPO DAILY 06/17/19 [History Confirmed 11/04/22] ferrous sulfate 325 mg (65 mg iron) tablet (iron) 325 mg PO DAILY 07/22/19 [History Confirmed 11/04/22] fenofibrate nanocrystallized 145 mg tablet (Tricor) 145 mg PO DAILY 04/29/20 [History Confirmed 11/04/22] furosemide 40 mg tablet (Lasix) 40 mg PO DAILY 04/29/20 [History Confirmed 11/04/22] levothyroxine 100 mcg tablet (Synthroid) 100 mcg PO DAILY.AC.BKFAST 04/29/20 [History Confirmed 11/04/22] ascorbic acid (vitamin C) 100 mg tablet (Vitamin C) 100 mg PO DAILY 07/29/22 [History Confirmed 11/04/22] carvedilol 25 mg tablet 25 mg PO BID 07/29/22 [History Confirmed 11/04/22] hydralazine 25 mg tablet 25 mg PO BID 07/29/22 [History Confirmed 11/04/22] insulin regular hum U-500 conc 500 unit/mL(3 mL) subcut pen (Humulin R U-500 (Conc) Insulin Kwikpen) 45 unit subcut DAILY 07/29/22 [History Confirmed 11/04/22] insulin regular hum U-500 conc 500 unit/mL(3 mL) subcut pen (Humulin R U-500 (Conc) Insulin Kwikpen) 70 unit subcut QAM 07/29/22 [History Confirmed 11/04/22] vitamin A 2,400 mcg capsule 2,400 mcg PO DAILY 07/29/22 [History Confirmed 11/04/22] vitamin B complex 1 tab PO DAILY 07/29/22 [History Confirmed 11/04/22] zinc acetate 25 mg (zinc) capsule 25 mg PO DAILY 07/29/22 [History Confirmed 11/04/22] pregabalin 50 mg capsule (Lyrica) 50 mg PO DAILY 10/10/22 [History Confirmed 11/04/22] nifedipine 90 mg tablet,extended release 90 mg PO DAILY 11/04/22 [History Confirmed 11/04/22] Active Medications Hydrocodone Bitart/Acetaminophen (Hydrocodone/Acetaminophen 5-325 Mg Tablet) 1 tab PO Q4H PRN PRN Reason: Pain Last Admin: 11/06/22 18:38 Dose: 1 tab Hydrocodone Bitart/Acetaminophen (Hydrocodone/Acetaminophen 5-325 Mg Tablet) 2 tab PO Q4H PRN PRN Reason: pain Ascorbic Acid (Ascorbic Acid 500 Mg Tablet) 500 mg PO DAILY [facility]INCE Stop: 11/05/23 08:59 Last Admin: 11/06/22 10:32 Dose: Not Given Atorvastatin Calcium (Atorvastatin 20 Mg Tablet) 20 mg PO DAILY [facility]INCE Stop: 11/05/23 08:59 Last Admin: 11/06/22 10:32 Dose: Not Given Carvedilol (Carvedilol 25 Mg Tablet) 25 mg PO BID [facility]INCE Stop: 11/04/23 20:59 Last Admin: 11/06/22 21:32 Dose: 25 mg Docusate Sodium (Docusate 100 Mg Capsule) 100 mg PO BID [facility] Stop: 11/06/23 20:59 Last Admin: 11/06/22 21:32 Dose: Not Given Emollient Ointment (Petrolatum,White 99 Gm Oint...G.) 1 applic TOPICAL DAILY VINCE Stop: 11/05/23 09:59 Last Admin: 11/07/22 05:55 Dose: 1 applic Fenofibrate (Fenofibrate Nanocrystallized 145 Mg Tablet) 145 mg PO DAILY [facility] Stop: 11/05/23 08:59 Last Admin: 11/05/22 08:48 Dose: 145 mg Ferrous Sulfate (Ferrous Sulfate 324 Mg Tablet.Dr) 324 mg PO DAILY [facility] Stop: 11/05/23 08:59 Last Admin: 11/06/22 10:32 Dose: Not Given Folic Acid (Cyanocobalamin/Fa/Pyridoxine 1 Tab Tablet) 1 tab PO DAILY [facility] Stop: 11/05/23 08:59 Last Admin: 11/06/22 10:32 Dose: Not Given Heparin Sodium (Porcine) (Heparin 5,000 Unit/Ml Vial) 5,000 unit SUBCUT Q8HR [facility] Stop: 11/05/23 13:59 Last Admin: 11/07/22 05:53 Dose: 5,000 unit Hydralazine HCl (Hydralazine 20 Mg/Ml Vial) 10 mg IV-PUSH Q4H PRN PRN Reason: if SBP > 185 Stop: 11/04/23 23:30 Last Admin: 11/04/22 23:40 Dose: 10 mg Hydralazine HCl (Hydralazine 50 Mg Tablet) 50 mg PO TID [facility] Stop: 11/05/23 05:59 Last Admin: 11/06/22 21:32 Dose: 50 mg Sodium Chloride (0.9% Sodium Chloride 500 Ml) 500 mls @ 20 mls/hr IV ONCE ONE Stop: 11/07/22 10:00 Last Admin: 11/06/22 10:37 Dose: 20 mls/hr Ferric Sodium Gluconate Complex 250 mg/ Sodium Chloride 270 mls @ 135 mls/hr IVQAM [facility] Stop: 11/09/22 09:01 Last Infusion: 11/06/22 13:03 Dose: Infused Insulin Human Regular (Insulin Regular U-500, Human 1,500 Unit/3 Ml Insuln.Pen) 45 unit SUBCUT DAILY@1700 [facility] Stop: 11/05/23 16:59 Last Admin: 11/06/22 17:13 Dose: 45 unit Insulin Human Regular (Insulin Regular U-500, Human 1,500 Unit/3 Ml Insuln.Pen) 70 unit SUBCUT DAILY@0600 [facility] Stop: 11/05/23 05:59 Last Admin: 11/07/22 05:54 Dose: 70 unit Labetalol HCl (Labetalol 100 Mg/20 Ml Vial) 10 mg IV-PUSH Q10M PRN PRN Reason: Hypertension Stop: 11/04/23 16:31 Last Admin: 11/04/22 21:41 Dose: 10 mg Levothyroxine Sodium (Levothyroxine 100 Mcg Tablet) 100 mcg PO DAILY@0630 [facility] Stop: 11/05/23 06:29 Last Admin: 11/07/22 05:55 Dose: 100 mcg Lorazepam (Lorazepam 2 Mg/Ml Vial) 0.5 mg IV-PUSH Q4H PRN PRN Reason: Agitation Stop: 05/05/23 16:50 Last Admin: 11/06/22 17:11 Dose: 0.5 mg Nifedipine (Nifedipine Er.24hr 90 Mg Tab.Er.24) 90 mg PO DAILY [facility] Stop: 11/05/23 08:59 Last Admin: 11/06/22 10:32 Dose: Not Given Pregabalin (Pregabalin 50 Mg Capsule) 50 mg PO DAILY [facility]INCE Stop: 05/04/23 08:59 Last Admin: 11/06/22 10:32 Dose: Not Given Sodium Bicarbonate (Sodium Bicarbonate 650 Mg Tablet) 1,300 mg PO BID [facility]INCE Stop: 11/05/23 10:29 Last Admin: 11/06/22 21:32 Dose: 1,300 mg Sodium Chloride (Sodium Chloride 0.9 % 10 Ml Syringe) 0 ml IV-PUSH PRN PRN PRN Reason: Flush Stop: 11/04/23 13:53 Sodium Chloride (Sodium Chloride 0.9 % 10 Ml Vial.Pf) 10 ml INJECTION Q4H PRN PRN Reason: Ativan dilution Stop: 11/06/23 16:50 Last Admin: 11/06/22 17:11 Dose: 10 ml Sodium Zirconium Cyclosilicate 10 gm/ Sodium Zirconium Cyclosilicate 5 gm 15 gmPO DAILY [facility]INCE Stop: 11/06/23 10:29 Last Admin: 11/06/22 15:41 Dose: 15 gm Trazodone HCl (Trazodone 50 Mg Tablet) 50 mg PO QHS [facility]INCE Stop: 11/06/23 20:59 Last Admin: 11/06/22 21:32 Dose: 50 mg Vitamin A (Vitamin A 3,000 Mcg (10,000 Units) Capsule) 3,000 mcg PO DAILY [facility] Stop: 11/05/23 08:59 Last Admin: 11/06/22 10:32 Dose: Not Given Vitamin D (Cholecalciferol 25 Mcg (1,000 Units) Tablet) 50 mcg PO DAILY [facility] Stop: 11/05/23 08:59 Last Admin: 11/06/22 10:32 Dose: Not Given Zinc Gluconate (Zinc Gluconate 50 Mg Tablet) 50 mg PO DAILY [facility] Stop: 11/05/23 08:59 Last Admin: 11/06/22 10:32 Dose: Not Given Exam Physical Exam Vital Signs: Temp Pulse Resp BP Pulse Ox O2 Del Method O2 Flow Rate 97.9 F 84 16 184/84 H 97 Room Air 3 11/07/22 08:00 11/07/22 08:00 11/07/22 08:00 11/07/22 08:00 11/07/22 08:00 11/07/22 08:00 11/06/22 14:55 GI Inspection: normal to inspection, non-distended and incision (No bleeding at incision sites) Auscultation: normal bowel sounds Objective Pain Assessment Abdomen: Pain Intensity: 4 Intake & Output 24 hour I&O: Intake & Output 11/06/22 11/07/22 11/07/22 23:59 07:59 15:59 Intake Total 650 / 2260 400 / 400 Balance 650 / 2260 400 / 400 Weight 144.9 kg Labs 11/07/22 04:37 11/07/22 04:37 Laboratory Results - Last 48 hrs. 11/07/22 07:04: POC Glucose 283, POC Glucose Comment Glu2: cleaned meter 11/07/22 04:37: PHA Creatinine Clear 19.89, Sodium 134 L, Potassium 6.0 H, Chloride 110, Carbon Dioxide 17.1 L, Anion Gap 12.9, BUN 69 H, Creatinine 6.67 H, EstGFR ( Amer) 11, Est GFR (Non-Af Amer) 9, Glucose 340 H D, Calcium 8.3 11/07/22 04:37: Corrected WBC 12.4 H, Uncorrected WBC Count 12.4 H, RBC 2.97 L, Hgb 8.8 L, Hct 27.0 L, MCV 90.8, MCH 29.7, MCHC 32.7, RDW 14.2, Plt Count 399, MPV 7.1, Neut % (Auto) 87.5, Lymph % (Auto) 5.8, Addison % (Auto) 6.5, Eos % (Auto)0.1, Baso % (Auto) 0.1, Nucleat RBC Rel Count 0.1, Neut # (Auto) 10.9 H, Lymph #(Auto) 0.7 L, Addison # (Auto) 0.8, Eos # (Auto) 0.0, Baso # (Auto) 0.0 11/07/22 01:35: POC Glucose 419 H*, POC Glucose Comment 11/07/22 01:33: POC Glucose 445 H*, POC Glucose Comment Will repeat test 11/06/22 21:30: POC Glucose 383 11/06/22 15:35: POC Glucose 237, POC Glucose Comment Glu2: cleaned meter 11/06/22 14:50: POC Glucose 228 11/06/22 12:32: POC Glucose 204, POC Glucose Comment Glu2: cleaned meter 11/06/22 04:25: PHA Creatinine Clear 20.28, Sodium 137, Potassium 5.5 H, Chloride 113, Carbon Dioxide 17.9 L, Anion Gap 11.6, BUN 63 H, Creatinine 6.54 H, Est GFR ( Amer) 11, Est GFR (Non-Af Amer) 9, Glucose 142 H, Calcium 8.4, Iron 38 L, TIBC 315, Iron Saturation 12.1 L, Transferrin 225, Ferritin 363.1 H, Folate 11.5 11/06/22 04:25: Corrected WBC 13.3 H, Uncorrected WBC Count 13.3 H, RBC 3.08 L, Hgb 9.2 L, Hct 28.1 L, MCV 91.1, MCH 30.0, MCHC 32.9, RDW 14.3, Plt Count 389, MPV 6.9, Neut % (Auto) 74.7, Lymph % (Auto) 13.3, Addison % (Auto) 9.0, Eos % (Auto) 2.5, Baso % (Auto) 0.5, Nucleat RBC Rel Count 0.1, Neut # (Auto) 10.0 H, Lymph # (Auto) 1.8, Addison # (Auto) 1.2 H, Eos # (Auto) 0.3, Baso # (Auto) 0.1 11/05/22 20:28: POC Glucose 185 11/05/22 17:20: POC Glucose 165, POC Glucose Comment Glu2: cleaned meter 11/05/22 17:16: SARS-CoV-2 Rap RNA(RT-PCR) Negative 11/05/22 12:16: POC Glucose 156, POC Glucose Comment Glu2: cleaned meter A&P - General Surgery Assessment/Plan (1) Acute kidney injury superimposed on CKD: Plan: Postop day #1 from PD catheter insertion. He is doing well, the catheter may beused. We will sign off the case at this time. Code(s): N17.9 - Acute kidney failure, unspecified; N18.9 - Chronic kidney disease, unspecified Status: Acute Documented By: Masoud Maria DO 11/07/22 08 38 Signed By: <Electronically signed by Masoud Maria DO> 11/07/22 0840 [facility] Work Phone: [phone]) 763-274503-03-2023 Progress note Author Chintan Brewster [facility] November 06, 2022 5:26pm Note Date/Time November 06, 2022 5:26 pm [facility] [address] [place] [address] Hospitalist Progress Note Signed Patient: Evans Forte MR#: [id number] : 1970 Acct:[id number] Age/Sex: 52 / M Adm Date: 3 Loc: Room: [address] [place] [address] Type: ADM IN Attending Dr: Chintan Brewster DO Copies to: ~ Date of Service: 11/06/2022 Subjective Subjective Narrative: Patient seen and examined at bedside. No acute events overnight. Reports mild sore throat and cough Physical Examination: GENERAL APPEARANCE: Alert, up in bed AAOx3 HEENT: NCAT, MMM NECK: Neck soft w/o masses, no JVD CARDIAC: Normal S1 and S2. No S3, S4 or murmurs. LUNGS: Clear to auscultation bilaterally. no wheeze/rhonchi/rales ABDOMEN: Positive bowel sounds. Soft, nontender. No guarding or signs of an acute abdomen MUSCULOSKELETAL: No joint erythema or tenderness. EXTREMITIES: No clubbing, cyanosis. 1+ pitting edema bilateral lower extremities. PSYCHIATRIC: Appropriate mood and affect Assessment and plan: 1. Hyperkalemia Again elevated today. Appreciate nephrology recommendations. A.m. labs 2. Leukocytosis I suspect this may be due to the patient's significant anxiety. Continue to monitor for fevers. Infectious work-up is otherwise negative. 3. Anemia Chronic likely in part due to CKD. 4. Diabetes mellitus, insulin-dependent Continue home insulin regimen. 5. Hypothyroidism Continue home levothyroxine 100 mcg daily. 6. Anxiety As needed Ativan. Start trazodone for sleep given his complaints of insomnia. Patient likely needs longer term maintenance therapy for generalized anxiety. Exam Physical Exam Vital Signs: Temp Pulse Resp BP Pulse Ox O2 Del Method O2 Flow Rate 97.3 F L 78 20 159/79 H 98 Room Air 3 11/06/22 15:37 11/06/22 15:37 11/06/22 15:37 11/06/22 15:37 11/06/22 15:37 11/06/22 16:00 11/06/22 14:55 Objective Lab Results 11/06/22 04:25 11/06/22 04:25 Microbiology Results Microbiology 11/05/22 17:16 Nasopharyngeal SARS-CoV-2, Influenza & RSV (PCR) - Final Meds Allergies and Active Meds Allergies haloperidol [From Haldol] Adverse Reaction (Verified 11/06/22 00:55) Anxiety Active Meds: Active Medications Generic Name Dose Route Start Last Admin Trade Name Freq PRN Reason Stop Dose Admin Hydrocodone Bitart/Acetaminophen 1 tab 11/06/22 14:34 Hydrocodone/Acetaminophen 5-325 Mg Tablet PO Q4H PRN Pain Hydrocodone Bitart/Acetaminophen 2 tab 11/06/22 14:34 Hydrocodone/Acetaminophen 5-325 Mg Tablet PO Q4H PRN pain Ascorbic Acid 500 mg 11/05/22 09:00 11/06/22 10:32 Ascorbic Acid 500 Mg Tablet PO 11/05/23 08:59 Not Given DAILY VINCE Atorvastatin Calcium 20 mg 11/05/22 09:00 11/06/22 10:32 Atorvastatin 20 Mg Tablet PO 11/05/23 08:59 Not Given DAILY VINCE Carvedilol 25 mg 11/04/22 21:00 11/06/22 09:05 Carvedilol 25 Mg Tablet PO 11/04/23 20:59 25 mg BID VINCE Administration Docusate Sodium 100 mg 11/06/22 21:00 Docusate 100 Mg Capsule PO 11/06/23 20:59 BID VINCE Emollient Ointment 1 applic 11/05/22 10:00 11/06/22 09:05 Petrolatum,White 99 Gm Oint...G. TOPICAL 11/05/23 09:59 1 applic DAILY VINCE Administration Fenofibrate 145 mg 11/05/22 09:00 11/05/22 08:48 Fenofibrate Nanocrystallized 145 Mg Tablet PO 11/05/23 08:59 145 mg DAILY VINCE Administration Ferrous Sulfate 324 mg 11/05/22 09:00 11/06/22 10:32 Ferrous Sulfate 324 Mg Tablet. PO 11/05/23 08:59 Not Given DAILY [facility]INCE Folic Acid 1 tab 11/05/22 09:00 11/06/22 10:32 Cyanocobalamin/Fa/Pyridoxine 1 Tab Tablet PO 11/05/23 08:59 Not Given DAILY [facility] Heparin Sodium (Porcine) 5,000 unit 11/05/22 14:00 11/06/22 14:15 Heparin 5,000 Unit/Ml Vial SUBCUT 11/05/23 13:59 Not Given Q8HR [facility] Hydralazine HCl 10 mg 11/04/22 23:31 11/04/22 23:40 Hydralazine 20 Mg/Ml Vial IV-PUSH 11/04/23 23:30 10 mg Q4H PRN Administration if SBP > 185 Hydralazine HCl 50 mg 11/05/22 06:00 11/06/22 15:41 Hydralazine 50 Mg Tablet PO 11/05/23 05:59 50 mg TID VINCE Administration Sodium Chloride 500 mls @ 20 mls/hr 11/06/22 09:01 11/06/22 10:37 0.9% Sodium Chloride 500 Ml IV 11/07/22 10:00 20 mls/hr ONCE ONE Administration Ferric Sodium Gluconate 270 mls @ 135 mls/hr 11/06/22 10:20 11/06/22 13:03 Complex 250 mg/ Sodium IV 11/09/22 09:01 Infused Chloride QAM [facility] Infusion Insulin Human Regular 45 unit 11/05/22 17:00 11/06/22 17:13 Insulin Regular U-500, Human 1,500 Unit/3 Ml Insuln.Pen SUBCUT 11/05/23 16:59 45 unit DAILY@1700 [facility] Administration Insulin Human Regular 70 unit 11/05/22 06:00 11/06/22 06:25 Insulin Regular U-500, Human 1,500 Unit/3 Ml Insuln.Pen SUBCUT 11/05/23 05:59 Not Given DAILY@0600 [facility] Insulin Human Regular 0 unit 11/06/22 12:34 11/06/22 14:51 Insulin Regular, Human 300 Unit/3 Ml SUBCUT 11/07/22 00:34 3 unit PROTOCOL PRN Administration High Blood Glucose Protocol Labetalol HCl 10 mg 11/04/22 16:32 11/04/22 21:41 Labetalol 100 Mg/20 Ml Vial IV-PUSH 11/04/23 16:31 10 mg Q10M PRN Administration Hypertension Levothyroxine Sodium 100 mcg 11/05/22 06:30 11/06/22 06:38 Levothyroxine 100 Mcg Tablet PO 11/05/23 06:29 Not Given DAILY@0630 [facility] Lidocaine HCl 0.1 ml 11/06/22 12:34 Lidocaine 1% 20 Ml Vial INTRADERMA 11/06/22 18:34 PREOP PRN Venipuncture Lorazepam 0.5 mg 11/06/22 16:51 11/06/22 17:11 Lorazepam 2 Mg/Ml Vial IV-PUSH 05/05/23 16:50 0.5 mg Q4H PRN Administration Agitation Nifedipine 90 mg 11/05/22 09:00 11/06/22 10:32 Nifedipine Er.24hr 90 Mg Tab.Er.24 PO 11/05/23 08:59 Not Given DAILY [facility] Pregabalin 50 mg 11/05/22 09:00 11/06/22 10:32 Pregabalin 50 Mg Capsule PO 05/04/23 08:59 Not Given DAILY [facility] Sodium Bicarbonate 1,300 mg 11/05/22 14:40 11/06/22 10:32 Sodium Bicarbonate 650 Mg Tablet PO 11/05/23 10:29 Not Given BID VINCE Sodium Chloride 0 ml 11/04/22 13:54 Sodium Chloride 0.9 % 10 Ml Syringe IV-PUSH 11/04/23 13:53 PRN PRN Flush Sodium Chloride 10 ml 11/06/22 16:51 11/06/22 17:11 Sodium Chloride 0.9 % 10 Ml Vial.Pf INJECTION 11/06/23 16:50 10 ml Q4H PRN Administration Ativan dilution Sodium Zirconium Cyclosilicate 15 gm 11/06/22 10:30 11/06/22 15:41 10 gm/ Sodium Zirconium PO 11/06/23 10:29 15 gm Cyclosilicate 5 gm DAILY VINCE Administration Trazodone HCl 50 mg 11/06/22 21:00 Trazodone 50 Mg Tablet PO 11/06/23 20:59 QHS VINCE Vitamin A 3,000 mcg 11/05/22 09:00 11/06/22 10:32 Vitamin A 3,000 Mcg (10,000 Units) Capsule PO 11/05/23 08:59 Not Given DAILY [facility]INCE Vitamin D 50 mcg 11/05/22 09:00 11/06/22 10:32 Cholecalciferol 25 Mcg (1,000 Units) Tablet PO 11/05/23 08:59 Not Given DAILY [facility] Zinc Gluconate 50 mg 11/05/22 09:00 11/06/22 10:32 Zinc Gluconate 50 Mg Tablet PO 11/05/23 08:59 Not Given DAILY [facility] Documented By: Chintan Brewster DO 11/06/22 17 24 Signed By: <Electronically signed by Chintan Brewster DO> 11/06/22 1726 [facility] Work Phone: [phone]) 238-988003-03-2023 Progress note Author Yocasta Villalba [facility] November 06, 2022 2:57pm Note Date/Time November 06, 2022 2:57 pm [facility] [address] [place] [address] Nephrology Progress Note Signed Patient: Evans Forte MR#: [id number] : 1970 Acct:[id number] Age/Sex: 52 / M Adm Date: 3 Loc: Room: [address] [place] [address] Type: ADM IN Attending Dr: Chintan Brewster DO Copies to: ~ Date of Service: 11/06/2022 Subjective Subjective Narrative: This is a 52-year-old male patient with a past sickle history of chronic kidney disease stage V from diabetic nephropathy, hypertension, morbid obesity, anemia of renal disease, neuropathy. 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 Patient is known to Dr. Waters and he has been following with him for CKD stage V. Lab workin the emergency room showed potassium 5.3 mmol/L. Patient was giving calcium chloride along with Lokelma and 1 dose of the Lasix. Patient also started on IVfluid normal saline 75 cc/h. Serum potassium this morning 4.6 mmol/L. Renal team was consulted for CKD stage V, hypertension and electrolyte imbalance management. Noted high blood pressure this morning. Patient has been on the same home medications Coreg, hydralazine, nifedipine. Noted metabolic acidosis with serum bicarb level 16.7 mmol/L Patient denied nausea vomiting. He has mild edema of lower extremity. No itchiness no chest pain. No cough. Has been having nasal congestion with headache for the last few days. Noted mild fever this morning. White cell count 13 Interval history: Patient was seen examined his room. Patient is scheduled to have PD catheter placed later today. Currently NPO. Potassium level slightly high at 5.5 mmol/L. Yesterday, increase his Lasix to 80 mg once daily. Serum creatinine slightly worse today at 6.5 mg deciliter andGFR 9 hemoglobin. Patient noted more urine output with higher dose of Lasix Denied nausea vomiting. No shortness of breath. No metallic taste. No asterixis. No chest pain. Respiratory status low at 12%. Patient started on loading dose of Ferrlecit 250mg x4 Exam Physical Exam Vital Signs: Temp Pulse Resp BP Pulse Ox O2 Del Method 98.0 F 76 16 152/68 H 98 Room Air 11/06/22 12:28 11/06/22 12:28 11/06/22 12:28 11/06/22 12:28 11/06/22 12:28 11/06/22 12:28 Narrative: General: No acute distress Head :atraumatic normocephalic Eyes: PERRLA. Neck: no JVD no bruit. Heart: S1-S2. RRR Respiratory: Clear to auscultation. No wheezing. No crackles Abdomen: Soft, positive bowel sounds,no tenderness. Neurology: Awake alert oriented x3. No focal deficits Extremity. No cyanosis. Trace edema of lower extremities Skin: No skin rash Objective Intake and Output I&O: Intake & Output 11/03/22 11/04/22 11/05/22 11/06/22 23:59 23:59 23:59 23:59 Intake Total 860 / 860 1110 / 1110 Balance 860 / 860 1110 / 1110 Weight 145 kg 145 kg Meds and Allergies Meds: Active Medications Hydrocodone Bitart/Acetaminophen (Hydrocodone/Acetaminophen 5-325 Mg Tablet) 1 tab PO Q4H PRN PRN Reason: Pain Hydrocodone Bitart/Acetaminophen (Hydrocodone/Acetaminophen 5-325 Mg Tablet) 2 tab PO Q4H PRN PRN Reason: pain Ascorbic Acid (Ascorbic Acid 500 Mg Tablet) 500 mg PO DAILY [facility] Stop: 11/05/23 08:59 Last Admin: 11/06/22 10:32 Dose: Not Given Atorvastatin Calcium (Atorvastatin 20 Mg Tablet) 20 mg PO DAILY [facility] Stop: 11/05/23 08:59 Last Admin: 11/06/22 10:32 Dose: Not Given Carvedilol (Carvedilol 25 Mg Tablet) 25 mg PO BID [facility] Stop: 11/04/23 20:59 Last Admin: 11/06/22 09:05 Dose: 25 mg Docusate Sodium (Docusate 100 Mg Capsule) 100 mg PO BID [facility] Stop: 11/06/23 20:59 Droperidol (Droperidol 5 Mg/2 Ml Vial) 1.25 mg IV-PUSH ONCE PRN PRN Reason: Nausea And Vomiting Stop: 11/06/22 16:28 Emollient Ointment (Petrolatum,White 99 Gm Oint...G.) 1 applic TOPICAL DAILY [facility] Stop: 11/05/23 09:59 Last Admin: 11/06/22 09:05 Dose: 1 applic Fenofibrate (Fenofibrate Nanocrystallized 145 Mg Tablet) 145 mg PO DAILY [facility] Stop: 11/05/23 08:59 Last Admin: 11/05/22 08:48 Dose: 145 mg Ferrous Sulfate (Ferrous Sulfate 324 Mg Tablet.Dr) 324 mg PO DAILY [facility] Stop: 11/05/23 08:59 Last Admin: 11/06/22 10:32 Dose: Not Given Folic Acid (Cyanocobalamin/Fa/Pyridoxine 1 Tab Tablet) 1 tab PO DAILY [facility] Stop: 11/05/23 08:59 Last Admin: 11/06/22 10:32 Dose: Not Given Heparin Sodium (Porcine) (Heparin 5,000 Unit/Ml Vial) 5,000 unit SUBCUT Q8HR [facility] Stop: 11/05/23 13:59 Last Admin: 11/06/22 14:15 Dose: Not Given Hydralazine HCl (Hydralazine 20 Mg/Ml Vial) 10 mg IV-PUSH Q4H PRN PRN Reason: if SBP > 185 Stop: 11/04/23 23:30 Last Admin: 11/04/22 23:40 Dose: 10 mg Hydralazine HCl (Hydralazine 50 Mg Tablet) 50 mg PO TID [facility] Stop: 11/05/23 05:59 Last Admin: 11/06/22 10:32 Dose: Not Given Sodium Chloride (0.9% Sodium Chloride 500 Ml) 500 mls @ 20 mls/hr IV ONCE ONE Stop: 11/07/22 10:00 Last Admin: 11/06/22 10:37 Dose: 20 mls/hr Ferric Sodium Gluconate Complex 250 mg/ Sodium Chloride 270 mls @ 135 mls/hr IVQAM [facility] Stop: 11/09/22 09:01 Last Infusion: 11/06/22 13:03 Dose: Infused Insulin Human Regular (Insulin Regular U-500, Human 1,500 Unit/3 Ml Insuln.Pen) 45 unit SUBCUT DAILY@1700 [facility] Stop: 11/05/23 16:59 Last Admin: 11/05/22 18:24 Dose: 45 unit Insulin Human Regular (Insulin Regular U-500, Human 1,500 Unit/3 Ml Insuln.Pen) 70 unit SUBCUT DAILY@0600 [facility] Stop: 11/05/23 05:59 Last Admin: 11/06/22 06:25 Dose: Not Given Insulin Human Regular (Insulin Regular, Human 300 Unit/3 Ml) 0 unit SUBCUT PROTOCOL PRN; Protocol PRN Reason: High Blood Glucose Stop: 11/07/22 00:34 Last Admin: 11/06/22 12:39 Dose: 3 unit Labetalol HCl (Labetalol 100 Mg/20 Ml Vial) 10 mg IV-PUSH Q10M PRN PRN Reason: Hypertension Stop: 11/04/23 16:31 Last Admin: 11/04/22 21:41 Dose: 10 mg Labetalol HCl (Labetalol 100 Mg/20 Ml Vial) 10 mg IV-PUSH Q10M PRN PRN Reason: Hypertension Stop: 11/06/22 16:28 Levothyroxine Sodium (Levothyroxine 100 Mcg Tablet) 100 mcg PO DAILY@0630 [facility] Stop: 11/05/23 06:29 Last Admin: 11/06/22 06:38 Dose: Not Given Lidocaine HCl (Lidocaine 1% 20 Ml Vial) 0.1 ml INTRADERMA PREOP PRN PRN Reason: Venipuncture Stop: 11/06/22 15:01 Lidocaine HCl (Lidocaine 1% 20 Ml Vial) 0.1 ml INTRADERMA PREOP PRN PRN Reason: Venipuncture Stop: 11/06/22 18:34 Nifedipine (Nifedipine Er.24hr 90 Mg Tab.Er.24) 90 mg PO DAILY [facility] Stop: 11/05/23 08:59 Last Admin: 11/06/22 10:32 Dose: Not Given Ondansetron HCl (Ondansetron 4 Mg/2 Ml Vial) 4 mg IV-PUSH ONCE PRN PRN Reason: Nausea/Vomiting Stop: 11/06/22 16:28 Pregabalin (Pregabalin 50 Mg Capsule) 50 mg PO DAILY [facility] Stop: 05/04/23 08:59 Last Admin: 11/06/22 10:32 Dose: Not Given Sodium Bicarbonate (Sodium Bicarbonate 650 Mg Tablet) 1,300 mg PO BID [facility] Stop: 11/05/23 10:29 Last Admin: 11/06/22 10:32 Dose: Not Given Sodium Chloride (Sodium Chloride 0.9 % 10 Ml Syringe) 0 ml IV-PUSH PRN PRN PRN Reason: Flush Stop: 11/04/23 13:53 Sodium Zirconium Cyclosilicate 10 gm/ Sodium Zirconium Cyclosilicate 5 gm 15 gmPO DAILY [facility] Stop: 11/06/23 10:29 Vitamin A (Vitamin A 3,000 Mcg (10,000 Units) Capsule) 3,000 mcg PO DAILY [facility] Stop: 11/05/23 08:59 Last Admin: 11/06/22 10:32 Dose: Not Given Vitamin D (Cholecalciferol 25 Mcg (1,000 Units) Tablet) 50 mcg PO DAILY [facility] Stop: 11/05/23 08:59 Last Admin: 11/06/22 10:32 Dose: Not Given Zinc Gluconate (Zinc Gluconate 50 Mg Tablet) 50 mg PO DAILY [facility] Stop: 11/05/23 08:59 Last Admin: 11/06/22 10:32 Dose: Not Given Allergies haloperidol [From Haldol] Adverse Reaction (Verified 11/06/22 00:55) Anxiety Results Labs 11/06/22 04:25 11/06/22 04:25 Labs: 11/06/22 04:25 BUN 63 H Creatinine 6.54 H Iron Saturation 12.1 L Ferritin 363.1 H Radiology Impressions Impressions - last 24 hours: Any impression(s) listed above is documentation that was entered by the reading physician into a diagnostic report(s) for Evans Wileywalski. I have reviewed the report(s) and am incorporating any findings in the treatment plan of this patient where applicable. A&P - Nephrology Assessment/Plan (1) CKD (chronic kidney disease) stage 5, GFR less than 15 ml/min: Plan: Patient is known to Dr. 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 Patient has reached end-stage disease and he needs to be on renal placement therapy. Patient has opted for peritoneal dialysis. I consulted general surgeon for PD catheter placement. PD catheter placement is arranged for today. There is no urgent need to start renal placement therapy. I believethe patient can wait 2 weeks to start t PD training (2) Insulin dependent diabetes mellitus: Plan: Patient has diabetes for many years. Currently on insulin as directed by the primary service (3) Hypertensive chronic kidney disease with stage 1 through stage 4 chronic kidney disease, or unspecified chronic kidney disease: Plan: Likely due to CKD progression. Blood pressure improved slightly with increasingdiltiazem dose. Volume status is well controlled. I will stop Lasix due to worsening kidney function. Continue to monitor blood pressure and adjust medications as needed (4) Hyperkalemia: Plan: Likely from metabolic acidosis and advanced CKD. This corrected with Lokelma. However potassium is higher again today. I will resume Lokelma 15 g daily. Check potassium level in the morning (5) Metabolic acidosis: Plan: Likely from advanced CKD. Improved with higher dose of sodium bicarb. Continuesodium bicarb dose at 1300 mg twice daily. Check serum bicarb level in a.m. Documented By: Yocasta Villalba MD 11/06/22 145 Signed By: <Electronically signed by Yocasta Villalba MD> 11/06/22 7025 [facility] Work Phone: 1(161) 761-432403-02-2023 Progress note Author Chintan Brewster [facility] November 05, 2022 3:55pm Note Date/Time November 05, 2022 3:55 pm [facility] [address] [place] [address] Hospitalist Progress Note Signed Patient: Evans Forte MR#: [id number] : 1970 Acct:[id number] Age/Sex: 52 / M Adm Date: 3 Loc: 4 Room: [address] [place] [address] Type: ADM IN Attending Dr: Chintan Brewster DO Copies to: ~ Date of Service: 11/05/2022 Subjective Subjective Narrative: Patient seen and examined at bedside. No acute events overnight. Reports mild sore throat and cough Physical Examination: GENERAL APPEARANCE: Alert, up in bed AAOx3 HEENT: NCAT, MMM NECK: Neck soft w/o masses, no JVD CARDIAC: Normal S1 and S2. No S3, S4 or murmurs. LUNGS: Clear to auscultation bilaterally. no wheeze/rhonchi/rales ABDOMEN: Positive bowel sounds. Soft, nontender. No guarding or signs of an acute abdomen MUSCULOSKELETAL: No joint erythema or tenderness. EXTREMITIES: No clubbing, cyanosis. 1+ pitting edema bilateral lower extremities. PSYCHIATRIC: Appropriate mood and affect Assessment and plan: 1. Hyperkalemia Improved today. Appreciate nephrology recommendations 2. Leukocytosis Mild, also accompanies a mild fever. Monitor for signs of infection. No symptoms of infection presently. 3. Anemia Chronic likely in part due to CKD. 4. Diabetes mellitus, insulin-dependent Continue home insulin regimen. 5. Hypothyroidism Continue home levothyroxine 100 mcg daily. 6. Sore throat Viral screen Exam Physical Exam Vital Signs: Temp Pulse Resp BP Pulse Ox O2 Del Method 98.3 F 87 16 165/79 H 96 Room Air 11/05/22 14:48 11/05/22 14:48 11/05/22 14:48 11/05/22 14:48 11/05/22 14:48 11/05/22 14:48 Objective Lab Results 11/05/22 04:24 11/05/22 04:24 Meds Allergies and Active Meds Allergies No Known Allergies Allergy (Verified 11/04/22 13:54) Active Meds: Active Medications Generic Name Dose Route Start Last Admin Trade Name Freq PRN Reason Stop Dose Admin Ascorbic Acid 500 mg 11/05/22 09:00 11/05/22 08:49 Ascorbic Acid 500 Mg Tablet PO 11/05/23 08:59 500 mg DAILY [facility] Administration Atorvastatin Calcium 20 mg 11/05/22 09:00 11/05/22 08:50 Atorvastatin 20 Mg Tablet PO 11/05/23 08:59 20 mg DAILY [facility] Administration Carvedilol 25 mg 11/04/22 21:00 11/05/22 08:50 Carvedilol 25 Mg Tablet PO 11/04/23 20:59 25 mg BID [facility] Administration Emollient Ointment 1 applic 11/05/22 10:00 Petrolatum,White 99 Gm Oint...G. TOPICAL 11/05/23 09:59 DAILY [facility] Fenofibrate 145 mg 11/05/22 09:00 11/05/22 08:48 Fenofibrate Nanocrystallized 145 Mg Tablet PO 11/05/23 08:59 145 mg DAILY [facility] Administration Ferrous Sulfate 324 mg 11/05/22 09:00 11/05/22 08:52 Ferrous Sulfate 324 Mg Tablet. PO 11/05/23 08:59 324 mg DAILY [facility] Administration Folic Acid 1 tab 11/05/22 09:00 11/05/22 08:48 Cyanocobalamin/Fa/Pyridoxine 1 Tab Tablet PO 11/05/23 08:59 1 tab DAILY [facility] Administration Furosemide 80 mg 11/06/22 08:00 Furosemide 80 Mg Tablet PO 11/06/23 07:59 DAILY.8A [facility] Heparin Sodium (Porcine) 5,000 unit 11/05/22 14:00 11/05/22 14:48 Heparin 5,000 Unit/Ml Vial SUBCUT 11/05/23 13:59 5,000 unit Q8HR [facility] Administration Hydralazine HCl 10 mg 11/04/22 23:31 11/04/22 23:40 Hydralazine 20 Mg/Ml Vial IV-PUSH 11/04/23 23:30 10 mg Q4H PRN Administration if SBP > 185 Hydralazine HCl 50 mg 11/05/22 06:00 11/05/22 14:49 Hydralazine 50 Mg Tablet PO 11/05/23 05:59 50 mg TID [facility] Administration Insulin Human Regular 45 unit 11/05/22 17:00 Insulin Regular U-500, Human 1,500 Unit/3 Ml Insuln.Pen SUBCUT 11/05/23 16:59 DAILY@1700 [facility] Insulin Human Regular 70 unit 11/05/22 06:00 11/05/22 08:05 Insulin Regular U-500, Human 1,500 Unit/3 Ml Insuln.Pen SUBCUT 11/05/23 05:59 70 unit DAILY@0600 [facility] Administration Labetalol HCl 10 mg 11/04/22 16:32 11/04/22 21:41 Labetalol 100 Mg/20 Ml Vial IV-PUSH 11/04/23 16:31 10 mg Q10M PRN Administration Hypertension Levothyroxine Sodium 100 mcg 11/05/22 06:30 11/05/22 06:10 Levothyroxine 100 Mcg Tablet PO 11/05/23 06:29 100 mcg DAILY@0630 [facility] Administration Nifedipine 90 mg 11/05/22 09:00 11/05/22 08:52 Nifedipine Er.24hr 90 Mg Tab.Er.24 PO 11/05/23 08:59 90 mg DAILY [facility] Administration Pregabalin 50 mg 11/05/22 09:00 11/05/22 08:52 Pregabalin 50 Mg Capsule PO 05/04/23 08:59 50 mg DAILY [facility] Administration Sodium Bicarbonate 1,300 mg 11/05/22 14:40 Sodium Bicarbonate 650 Mg Tablet PO 11/05/23 10:29 BID [facility] Sodium Chloride 0 ml 11/04/22 13:54 Sodium Chloride 0.9 % 10 Ml Syringe IV-PUSH 11/04/23 13:53 PRN PRN Flush Vitamin A 3,000 mcg 11/05/22 09:00 11/05/22 08:52 Vitamin A 3,000 Mcg (10,000 Units) Capsule PO 11/05/23 08:59 3,000 mcg DAILY [facility] Administration Vitamin D 50 mcg 11/05/22 09:00 11/05/22 08:50 Cholecalciferol 25 Mcg (1,000 Units) Tablet PO 11/05/23 08:59 50 mcg DAILY [facility] Administration Zinc Gluconate 50 mg 11/05/22 09:00 11/05/22 08:52 Zinc Gluconate 50 Mg Tablet PO 11/05/23 08:59 50 mg DAILY [facility] Administration Documented By: Chintan Brewster DO 11/05/22 15 54 Signed By: <Electronically signed by Chintan Brewster DO> 11/05/22 3078 [facility] Work Phone: 1(647) 585-433603-02-2023 Consult note Author Yocasta Villalba [facility] November 05, 2022 2:39pm Note Date/Time November 05, 2022 2:39 pm [facility] [address] [place] [address] Nephrology Consult Note Signed Patient: Evans Forte MR#: [id number] : 1970 Acct:[id number] Age/Sex: 52 / M Adm Date: 3 Loc: Room: [address] [place] [address] Type: ADM IN Attending Dr: Chintan Brewster DO Copies to: DO Yocasta Dhillon MD Michael R. Frings, DO~ Providers Consult Date: 11/05/22 Requesting Provider: Chintan Brewster DO Primary Care Provider: Idania Ricketts DO HPI Reason for Consult: Chronic kidney disease stage V History of Present Illness: This is a 52-year-old male patient with a past sickle history of chronic kidney disease stage V from diabetic nephropathy, hypertension, morbid obesity, anemia of renal disease, neuropathy. 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 Patient is known to Dr. Waters and he has been following with him for CKD stage V. Lab workin the emergency room showed potassium 5.3 mmol/L. Patient was giving calcium chloride along with Lokelma and 1 dose of the Lasix. Patient also started on IVfluid normal saline 75 cc/h. Serum potassium this morning 4.6 mmol/L. Renal team was consulted for CKD stage V, hypertension and electrolyte imbalance management. Noted high blood pressure this morning. Patient has been on the same home medications Coreg, hydralazine, nifedipine. Noted metabolic acidosis with serum bicarb level 16.7 mmol/L Patient denied nausea vomiting. He has mild edema of lower extremity. No itchiness no chest pain. No cough. Has been having nasal congestion with headache for the last few days. Noted mild fever this morning. White cell count 13 Review of Systems Review of Systems Review of systems: 12 system review is negative today except what mentioned HPI PMFSH Vaccinated for COVID-19?: Yes Medical History (Updated 11/05/22 @ 14:36 by Yocasta Villalba MD) Cellulitis Diabetes mellitus, type 2 Hypertension Neuropathy Renal insufficiency Surgical History History of orthopedic surgery right foot has 14 screws and 3 plates. Family History Other No significant family history Social History Smoking Status: Never smoker Tobacco Type: cigarettes Substance Use Type: None Substance Abuse Comment: chewing tobacco Meds Medications & Allergies Allergies No Known Allergies Allergy (Verified 11/04/22 13:54) Home Medications atorvastatin 20 mg tablet (Lipitor) 20 mg PO DAILY 07/15/18 [History Confirmed 11/04/22] cholecalciferol (vitamin D3) 50 mcg (2,000 unit) capsule (Vitamin D3) 2,000 unitPO DAILY 06/17/19 [History Confirmed 11/04/22] ferrous sulfate 325 mg (65 mg iron) tablet (iron) 325 mg PO DAILY 07/22/19 [History Confirmed 11/04/22] fenofibrate nanocrystallized 145 mg tablet (Tricor) 145 mg PO DAILY 04/29/20 [History Confirmed 11/04/22] furosemide 40 mg tablet (Lasix) 40 mg PO DAILY 04/29/20 [History Confirmed 11/04/22] levothyroxine 100 mcg tablet (Synthroid) 100 mcg PO DAILY.AC.BKFAST 04/29/20 [History Confirmed 11/04/22] ascorbic acid (vitamin C) 100 mg tablet (Vitamin C) 100 mg PO DAILY 07/29/22 [History Confirmed 11/04/22] carvedilol 25 mg tablet 25 mg PO BID 07/29/22 [History Confirmed 11/04/22] hydralazine 25 mg tablet 25 mg PO BID 07/29/22 [History Confirmed 11/04/22] insulin regular hum U-500 conc 500 unit/mL(3 mL) subcut pen (Humulin R U-500 (Conc) Insulin Kwikpen) 45 unit subcut DAILY 07/29/22 [History Confirmed 11/04/22] insulin regular hum U-500 conc 500 unit/mL(3 mL) subcut pen (Humulin R U-500 (Conc) Insulin Kwikpen) 70 unit subcut QAM 07/29/22 [History Confirmed 11/04/22] vitamin A 2,400 mcg capsule 2,400 mcg PO DAILY 07/29/22 [History Confirmed 11/04/22] vitamin B complex 1 tab PO DAILY 07/29/22 [History Confirmed 11/04/22] zinc acetate 25 mg (zinc) capsule 25 mg PO DAILY 07/29/22 [History Confirmed 11/04/22] pregabalin 50 mg capsule (Lyrica) 50 mg PO DAILY 10/10/22 [History Confirmed 11/04/22] nifedipine 90 mg tablet,extended release 90 mg PO DAILY 11/04/22 [History Confirmed 11/04/22] Active Medications: Active Medications Ascorbic Acid (Ascorbic Acid 500 Mg Tablet) 500 mg PO DAILY [facility] Stop: 11/05/23 08:59 Last Admin: 11/05/22 08:49 Dose: 500 mg Atorvastatin Calcium (Atorvastatin 20 Mg Tablet) 20 mg PO DAILY [facility] Stop: 11/05/23 08:59 Last Admin: 11/05/22 08:50 Dose: 20 mg Carvedilol (Carvedilol 25 Mg Tablet) 25 mg PO BID [facility] Stop: 11/04/23 20:59 Last Admin: 11/05/22 08:50 Dose: 25 mg Emollient Ointment (Petrolatum,White 99 Gm Oint...G.) 1 applic TOPICAL DAILY [facility] Stop: 11/05/23 09:59 Fenofibrate (Fenofibrate Nanocrystallized 145 Mg Tablet) 145 mg PO DAILY [facility] Stop: 11/05/23 08:59 Last Admin: 11/05/22 08:48 Dose: 145 mg Ferrous Sulfate (Ferrous Sulfate 324 Mg Tablet.) 324 mg PO DAILY [facility] Stop: 11/05/23 08:59 Last Admin: 11/05/22 08:52 Dose: 324 mg Folic Acid (Cyanocobalamin/Fa/Pyridoxine 1 Tab Tablet) 1 tab PO DAILY [facility] Stop: 11/05/23 08:59 Last Admin: 11/05/22 08:48 Dose: 1 tab Heparin Sodium (Porcine) (Heparin 5,000 Unit/Ml Vial) 5,000 unit SUBCUT Q8HR [facility] Stop: 11/05/23 13:59 Hydralazine HCl (Hydralazine 20 Mg/Ml Vial) 10 mg IV-PUSH Q4H PRN PRN Reason: if SBP > 185 Stop: 11/04/23 23:30 Last Admin: 11/04/22 23:40 Dose: 10 mg Hydralazine HCl (Hydralazine 50 Mg Tablet) 50 mg PO TID [facility] Stop: 11/05/23 05:59 Last Admin: 11/05/22 08:52 Dose: 50 mg Insulin Human Regular (Insulin Regular U-500, Human 1,500 Unit/3 Ml Insuln.Pen) 45 unit SUBCUT DAILY@1700 [facility] Stop: 11/05/23 16:59 Insulin Human Regular (Insulin Regular U-500, Human 1,500 Unit/3 Ml Insuln.Pen) 70 unit SUBCUT DAILY@0600 [facility] Stop: 11/05/23 05:59 Last Admin: 11/05/22 08:05 Dose: 70 unit Labetalol HCl (Labetalol 100 Mg/20 Ml Vial) 10 mg IV-PUSH Q10M PRN PRN Reason: Hypertension Stop: 11/04/23 16:31 Last Admin: 11/04/22 21:41 Dose: 10 mg Levothyroxine Sodium (Levothyroxine 100 Mcg Tablet) 100 mcg PO DAILY@0630 [facility] Stop: 11/05/23 06:29 Last Admin: 11/05/22 06:10 Dose: 100 mcg Nifedipine (Nifedipine Er.24hr 90 Mg Tab.Er.24) 90 mg PO DAILY [facility] Stop: 11/05/23 08:59 Last Admin: 11/05/22 08:52 Dose: 90 mg Pregabalin (Pregabalin 50 Mg Capsule) 50 mg PO DAILY [facility] Stop: 05/04/23 08:59 Last Admin: 11/05/22 08:52 Dose: 50 mg Sodium Bicarbonate (Sodium Bicarbonate 650 Mg Tablet) 650 mg PO BID [facility] Stop: 11/05/23 10:29 Last Admin: 11/05/22 12:03 Dose: 650 mg Sodium Chloride (Sodium Chloride 0.9 % 10 Ml Syringe) 0 ml IV-PUSH PRN PRN PRN Reason: Flush Stop: 11/04/23 13:53 Vitamin A (Vitamin A 3,000 Mcg (10,000 Units) Capsule) 3,000 mcg PO DAILY [facility] Stop: 11/05/23 08:59 Last Admin: 11/05/22 08:52 Dose: 3,000 mcg Vitamin D (Cholecalciferol 25 Mcg (1,000 Units) Tablet) 50 mcg PO DAILY [facility] Stop: 11/05/23 08:59 Last Admin: 11/05/22 08:50 Dose: 50 mcg Zinc Gluconate (Zinc Gluconate 50 Mg Tablet) 50 mg PO DAILY [facility] Stop: 11/05/23 08:59 Last Admin: 11/05/22 08:52 Dose: 50 mg Exam Physical Exam Vital Signs: Temp Pulse Resp BP Pulse Ox O2 Del Method 98.0 F 83 18 173/78 H 97 Room Air 11/05/22 13:36 11/05/22 13:36 11/05/22 13:36 11/05/22 13:36 11/05/22 13:36 11/05/22 13:36 Narrative: General: No acute distress Head :atraumatic normocephalic Eyes: PERRLA. Neck: no JVD no bruit. Heart: S1-S2. RRR Respiratory: Clear to auscultation. No wheezing. No crackles Abdomen: Soft, positive bowel sounds,no tenderness. Neurology: Awake alert oriented x3. No focal deficits Extremity. No cyanosis. Trace edema of lower extremities Skin: No skin rash Results Labs 11/05/22 04:24 11/05/22 04:24 Labs: 11/04/22 11/04/22 11/05/22 14:04 15:11 04:24 BUN 52 H 56 H Creatinine 5.77 H 6.05 H Phosphorus 3.8 Albumin 3.3 Urine RBC 3-4 Urine WBC 1-2 Urine Bacteria None seen Radiology Impressions Impressions - last 24 hours: Impressions Chest X-Ray 11/04/22 14:05 IMPRESSION: NO ACUTE FINDINGS Impression dictated by: Anibal Escudero Jr., D.OHimanshu11/04/2022 3:50 PM Dictation Location: [place] [address] Any impression(s) listed above is documentation that was entered by the reading physician into a diagnostic report(s) for Evans Forte. I have reviewed the report(s) and am incorporating any findings in the treatment plan of this patient where applicable. A&P - Nephrology Assessment/Plan (1) CKD (chronic kidney disease) stage 5, GFR less than 15 ml/min: Plan: Patient is known to Dr. 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 Patient has reached end-stage disease and he needs to be on renal placement therapy. Patient has opted for peritoneal dialysis. I consulted general surgeon for PD catheter placement. Surgery is scheduled for tomorrow (2) Insulin dependent diabetes mellitus: Plan: Patient has diabetes for many years. Currently on insulin as directed by the primary service (3) Hypertensive chronic kidney disease with stage 1 through stage 4 chronic kidney disease, or unspecified chronic kidney disease: Plan: Noted high blood pressure. Likely due to CKD progression. I will stop IV fluid. I will increase hydralazine dose. Continue home Lasix dose 40 mg p.o. daily. Continue to monitor blood pressure and adjust medications as needed (4) Hyperkalemia: Plan: Likely from metabolic acidosis and advanced CKD. This corrected with Lokelma. I will continue same dose of Lokelma. Continue home Lasix. Low potassium renaldiet (5) Metabolic acidosis: Plan: Likely from advanced CKD. Patient is already on sodium bicarb. I will increasethe dose to 1300 mg twice daily Documented By: Yocasta Villalba MD 11/05/22 1431 Signed By: <Electronically signed by Yocasta Villalba MD> 11/05/22 1439 [facility] Work Phone: 1(922) 630-795603-02-2023 Consult note Author Flakito High [facility] November 05, 2022 12:31pm Note Date/Time November 05, 2022 12:3 1pm [facility] [address] [place] [address] General Surgery Consult Note Signed Patient: Evans Forte MR#: [id number] : 1970 Acct:[id number] Age/Sex: 52 / M Adm Date: 3 Loc: Room: [address] [place] [address] Type: ADM IN Attending Dr: Chintan Brewster DO Copies to: DO Chintan Dhillon DO Paul C Laffay, DO~ History of Present Illness Date of consult: 11/05/2022 Requesting/Attending Provider: Chintan Brewster DO History of present illness: Patient has had worsening kidney function and it is gotten to the point where heneeds to start peritoneal dialysis. He is very motivated to do that instead of hemodialysis. 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 He is not having any abdominal pain. His not having any nausea or vomiting. He is not having any current active infections. I had seen him in the office for some lipoma issue, he was not cleared to have any surgery because of his nephrology issues. Review of Systems Review of Systems All other systems reviewed & are negative unless noted below or in HPI PMFSH Vaccinated for COVID-19?: Yes Medical History (Updated 11/04/22 @ 17:35 by Delano Mondragon MD) Cellulitis Diabetes mellitus, type 2 Hypertension Neuropathy Renal insufficiency Surgical History History of orthopedic surgery right foot has 14 screws and 3 plates. Family History Other No significant family history Social History Smoking Status: Never smoker Tobacco Type: cigarettes Substance Use Type: None Substance Abuse Comment: chewing tobacco Allergies & Medications Medications and Allergies Allergies No Known Allergies Allergy (Verified 11/04/22 13:54) Home Medications atorvastatin 20 mg tablet (Lipitor) 20 mg PO DAILY 07/15/18 [History Confirmed 11/04/22] cholecalciferol (vitamin D3) 50 mcg (2,000 unit) capsule (Vitamin D3) 2,000 unitPO DAILY 06/17/19 [History Confirmed 11/04/22] ferrous sulfate 325 mg (65 mg iron) tablet (iron) 325 mg PO DAILY 07/22/19 [History Confirmed 11/04/22] fenofibrate nanocrystallized 145 mg tablet (Tricor) 145 mg PO DAILY 04/29/20 [History Confirmed 11/04/22] furosemide 40 mg tablet (Lasix) 40 mg PO DAILY 04/29/20 [History Confirmed 11/04/22] levothyroxine 100 mcg tablet (Synthroid) 100 mcg PO DAILY.AC.BKFAST 04/29/20 [History Confirmed 11/04/22] ascorbic acid (vitamin C) 100 mg tablet (Vitamin C) 100 mg PO DAILY 07/29/22 [History Confirmed 11/04/22] carvedilol 25 mg tablet 25 mg PO BID 07/29/22 [History Confirmed 11/04/22] hydralazine 25 mg tablet 25 mg PO BID 07/29/22 [History Confirmed 11/04/22] insulin regular hum U-500 conc 500 unit/mL(3 mL) subcut pen (Humulin R U-500 (Conc) Insulin Kwikpen) 45 unit subcut DAILY 07/29/22 [History Confirmed 11/04/22] insulin regular hum U-500 conc 500 unit/mL(3 mL) subcut pen (Humulin R U-500 (Conc) Insulin Kwikpen) 70 unit subcut QAM 07/29/22 [History Confirmed 11/04/22] vitamin A 2,400 mcg capsule 2,400 mcg PO DAILY 07/29/22 [History Confirmed 11/04/22] vitamin B complex 1 tab PO DAILY 07/29/22 [History Confirmed 11/04/22] zinc acetate 25 mg (zinc) capsule 25 mg PO DAILY 07/29/22 [History Confirmed 11/04/22] pregabalin 50 mg capsule (Lyrica) 50 mg PO DAILY 10/10/22 [History Confirmed 11/04/22] nifedipine 90 mg tablet,extended release 90 mg PO DAILY 11/04/22 [History Confirmed 11/04/22] Active Medications Ascorbic Acid (Ascorbic Acid 500 Mg Tablet) 500 mg PO DAILY VINCE Stop: 11/05/23 08:59 Last Admin: 11/05/22 08:49 Dose: 500 mg Atorvastatin Calcium (Atorvastatin 20 Mg Tablet) 20 mg PO DAILY VINCE Stop: 11/05/23 08:59 Last Admin: 11/05/22 08:50 Dose: 20 mg Carvedilol (Carvedilol 25 Mg Tablet) 25 mg PO BID VINCE Stop: 11/04/23 20:59 Last Admin: 11/05/22 08:50 Dose: 25 mg Emollient Ointment (Petrolatum,White 99 Gm Oint...G.) 1 applic TOPICAL DAILY VINCE Stop: 11/05/23 09:59 Fenofibrate (Fenofibrate Nanocrystallized 145 Mg Tablet) 145 mg PO DAILY VINCE Stop: 11/05/23 08:59 Last Admin: 11/05/22 08:48 Dose: 145 mg Ferrous Sulfate (Ferrous Sulfate 324 Mg Tablet.Dr) 324 mg PO DAILY VINCE Stop: 11/05/23 08:59 Last Admin: 11/05/22 08:52 Dose: 324 mg Folic Acid (Cyanocobalamin/Fa/Pyridoxine 1 Tab Tablet) 1 tab PO DAILY VINCE Stop: 11/05/23 08:59 Last Admin: 11/05/22 08:48 Dose: 1 tab Heparin Sodium (Porcine) (Heparin 5,000 Unit/Ml Vial) 5,000 unit SUBCUT Q8HR [facility] Stop: 11/05/23 13:59 Hydralazine HCl (Hydralazine 20 Mg/Ml Vial) 10 mg IV-PUSH Q4H PRN PRN Reason: if SBP > 185 Stop: 11/04/23 23:30 Last Admin: 11/04/22 23:40 Dose: 10 mg Hydralazine HCl (Hydralazine 50 Mg Tablet) 50 mg PO TID [facility] Stop: 11/05/23 05:59 Last Admin: 11/05/22 08:52 Dose: 50 mg Insulin Human Regular (Insulin Regular U-500, Human 1,500 Unit/3 Ml Insuln.Pen) 45 unit SUBCUT DAILY@1700 [facility] Stop: 11/05/23 16:59 Insulin Human Regular (Insulin Regular U-500, Human 1,500 Unit/3 Ml Insuln.Pen) 70 unit SUBCUT DAILY@0600 [facility] Stop: 11/05/23 05:59 Last Admin: 11/05/22 08:05 Dose: 70 unit Labetalol HCl (Labetalol 100 Mg/20 Ml Vial) 10 mg IV-PUSH Q10M PRN PRN Reason: Hypertension Stop: 11/04/23 16:31 Last Admin: 11/04/22 21:41 Dose: 10 mg Levothyroxine Sodium (Levothyroxine 100 Mcg Tablet) 100 mcg PO DAILY@0630 [facility] Stop: 11/05/23 06:29 Last Admin: 11/05/22 06:10 Dose: 100 mcg Nifedipine (Nifedipine Er.24hr 90 Mg Tab.Er.24) 90 mg PO DAILY [facility] Stop: 11/05/23 08:59 Last Admin: 11/05/22 08:52 Dose: 90 mg Pregabalin (Pregabalin 50 Mg Capsule) 50 mg PO DAILY [facility] Stop: 05/04/23 08:59 Last Admin: 11/05/22 08:52 Dose: 50 mg Sodium Bicarbonate (Sodium Bicarbonate 650 Mg Tablet) 650 mg PO BID [facility] Stop: 11/05/23 10:29 Last Admin: 11/05/22 12:03 Dose: 650 mg Sodium Chloride (Sodium Chloride 0.9 % 10 Ml Syringe) 0 ml IV-PUSH PRN PRN PRN Reason: Flush Stop: 11/04/23 13:53 Vitamin A (Vitamin A 3,000 Mcg (10,000 Units) Capsule) 3,000 mcg PO DAILY [facility] Stop: 11/05/23 08:59 Last Admin: 11/05/22 08:52 Dose: 3,000 mcg Vitamin D (Cholecalciferol 25 Mcg (1,000 Units) Tablet) 50 mcg PO DAILY [facility] Stop: 11/05/23 08:59 Last Admin: 11/05/22 08:50 Dose: 50 mcg Zinc Gluconate (Zinc Gluconate 50 Mg Tablet) 50 mg PO DAILY [facility] Stop: 11/05/23 08:59 Last Admin: 11/05/22 08:52 Dose: 50 mg Exam Physical Exam Vital Signs: Temp Pulse Resp BP Pulse Ox O2 Del Method 98.4 F 84 16 178/80 H 96 Room Air 11/05/22 12:00 11/05/22 12:00 11/05/22 12:00 11/05/22 12:00 11/05/22 12:00 11/05/22 12:00 Narrative: Patient is pleasant conversive nontoxic. Head is atraumatic normocephalic. Eyes are without any scleral icterus. Neck no anterior posterior cervical lymphadenopathy. Heart is regular rate rhythm. Lungs are clear. Abdomen is obese soft nontender nondistended. No surgical scars. Results Intake and Output 24 hour I&O: Intake & Output 11/04/22 11/05/22 11/05/22 23:59 07:59 15:59 Weight 145 kg Labs 11/05/22 04:24 11/05/22 04:24 Laboratory Results - last 72 hr 11/05/22 12:16: POC Glucose 156, POC Glucose Comment Glu2: cleaned meter 11/05/22 06:09: POC Glucose 120 11/05/22 04:24: PHA Creatinine Clear 21.93, Sodium 138, Potassium 4.6, Chloride 112, Carbon Dioxide 16.7 L, Anion Gap 13.9, BUN 56 H, Creatinine 6.05 H, Est GFR( Amer) 12, Est GFR (Non-Af Amer) 10, Glucose 98, Calcium 8.7 11/05/22 04:24: Corrected WBC 13.6 H, Uncorrected WBC Count 13.6 H, RBC 3.28 L, Hgb 9.8 L, Hct 29.8 L, MCV 90.8, MCH 29.8, MCHC 32.8, RDW 14.4, Plt Count 400, MPV 7.1, Neut % (Auto) 72.3, Lymph % (Auto) 14.6, Addison % (Auto) 9.5, Eos % (Auto) 2.8, Baso % (Auto) 0.8, Nucleat RBC Rel Count 0.0, Neut # (Auto) 9.8 H, Lymph # (Auto) 2.0, Addison # (Auto) 1.3 H, Eos # (Auto) 0.4, Baso # (Auto) 0.1 11/04/22 21:03: POC Glucose 159 11/04/22 15:11: B-Natriuretic Peptide 27.0 11/04/22 15:11: Troponin I High Sens 10 11/04/22 15:11: PT 12.4, INR 1.1, APTT 35.0 11/04/22 15:11: PHA Creatinine Clear 22.99, Sodium 138, Potassium 5.3 H, Chloride 112, Carbon Dioxide 17.3 L, Anion Gap 14.0, BUN 52 H, Creatinine 5.77 H, Est GFR ( Amer) 13, Est GFR (Non-Af Amer) 10, Glucose 82, Calcium 8.9, Phosphorus 3.8, Magnesium 1.6, Total Bilirubin 0.3, AST 14, ALT 23, Alkaline Phosphatase 59, Total Protein 7.5, Albumin 3.3, Globulin 4.2, Albumin/Globulin Ratio 0.8 11/04/22 15:11: Corrected WBC 12.2 H, Uncorrected WBC Count 12.2 H, RBC 3.32 L, Hgb 9.8 L, Hct 30.2 L, MCV 90.9, MCH 29.6, MCHC 32.6, RDW 14.5, Plt Count 418, MPV 6.7, Neut % (Auto) 74.8, Lymph % (Auto) 12.4, Addison % (Auto) 9.0, Eos % (Auto) 2.7, Baso % (Auto) 1.1, Nucleat RBC Rel Count 0.0, Neut # (Auto) 9.1 H, Lymph # (Auto) 1.5, Addison # (Auto) 1.1 H, Eos # (Auto) 0.3, Baso # (Auto) 0.1, Monocyte Dist Width 17.32 11/04/22 14:04: Urine Color Yellow, Urine Appearance Clear, Urine pH 5.5, Ur Specific [place] 1.013, Urine Protein 300 H, Urine Glucose (UA) 100 H, Urine Ketones Negative, Urine Occult Blood 1+ H, Urine Nitrite Negative, Urine Bilirubin Negative, Urine Urobilinogen Normal, Ur Leukocyte Esterase Negative, Urine RBC 3-4, Urine WBC 1- 2, Ur Squamous Epith Cells 0-1, Urine Bacteria None seen, Hyaline Casts 0-8 A&P - General Surgery (1) Chronic kidney disease with end stage renal disease on dialysis due to type 2 diabetes mellitus: Plan: Plan is for laparoscopic placement of peritoneal dialysis catheter tomorrow. Hewill be n.p.o. after midnight. I discussed with him and his the surgery, the risks and the benefits and the potential complications including but not limited to bleeding, infection, nonfunction of catheter, catheter infections or peritonitis related to peritoneal dialysis, damage to intra-abdominal structures. He would like to proceed. Code(s): E11.22 - Type 2 diabetes mellitus with diabetic chronic kidney disease; N18.6 - End stage renal disease; Z99.2 - Dependence on renal dialysis Status: Chronic Documented By: Flakito High DO 11/05/22 1228 Signed By: <Electronically signed by DO Flakito High> 11/05/22 1231 [facility] Work Phone: [phone]) 933-790403-01-2023 History and physical note Author Chintan Brewster [facility] November 04, 2022 8:11pm Note Date/Time November 04, 2022 8:11 pm [facility] [address] [place] [address] Hospitalist H&P Signed Patient: Evans Forte MR#: [id number] : 1970 Acct:[id number] Age/Sex: 52 / M Adm Date: 3 Loc: ER Room: Type: [facility] Attending Dr: Copies to: DO Delano Dhillon MD Michael R. 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 He is in preparation for peritoneal dialysis for his ongoing chronic kidney disease. On arrival to the ER his blood pressure was 226/102, low-grade temperature 99.1 ?F, heart rate of 96 bpm, respiratory rate of 18/min,96% oxygen saturation on room air. CBC revealed leukocytosis of 12.2 and chronic anemia H&H 9.8/30.2%, platelets 418. BUN/creatinine elevated at 52/5.77with a potassium level of 5.3, reported at 5.9 as outpatient. Bicarb is low at 17.3 consistent with baseline CKD. Urinalysis shows occult blood and protein. The patient was admitted [facility] floor for further evaluation and treatment after receiving a dose of IV calcium chloride and oral zirconium cyclosilicate. Patient denies any shortness of breath, confusion, nausea or vomiting. He does report some chronic edema in his lower extremities. Physical Examination: GENERAL APPEARANCE: Alert, up in bed AAOx3 HEENT: NCAT, MMM NECK: Neck soft w/o masses, no JVD CARDIAC: Normal S1 and S2. No S3, S4 or murmurs. LUNGS: Clear to auscultation bilaterally. no wheeze/rhonchi/rales ABDOMEN: Positive bowel sounds. Soft, nontender. No guarding or signs of an acute abdomen MUSCULOSKELETAL: No joint erythema or tenderness. EXTREMITIES: No clubbing, cyanosis. 1+ pitting edema bilateral lower extremities. PSYCHIATRIC: Appropriate mood and affect Assessment and plan: 1. Hyperkalemia Mild in nature. Likely due to progression of CKD. Consult nephrology. Monitoron telemetry. Will provide some light IV hydration and Lasix to further protectagainst rising potassium levels. 2. Leukocytosis Mild, also accompanies a mild fever. Monitor for signs of infection. No symptoms of infection presently. 3. Anemia Chronic likely in part due to CKD. 4. Diabetes mellitus, insulin-dependent Continue home insulin regimen. 5. Hypothyroidism Continue home levothyroxine 100 mcg daily. Review of Systems Review of Systems All other systems reviewed & are negative unless noted below or in HPI PMFSH Vaccinated for COVID-19?: Yes Medical History (Updated 11/04/22 @ 17:35 by Delano Mondragon MD) Cellulitis Diabetes mellitus, type 2 Hypertension Neuropathy Renal insufficiency Surgical History History of orthopedic surgery right foot has 14 screws and 3 plates. Family History Other No significant family history Social History Smoking Status: Never smoker Tobacco Type: cigarettes Substance Use Type: None Meds Medications and Allergies Allergies No Known Allergies Allergy (Verified 11/04/22 13:54) Home Medications atorvastatin 20 mg tablet (Lipitor) 20 mg PO DAILY 07/15/18 [History Confirmed 11/04/22] cholecalciferol (vitamin D3) 50 mcg (2,000 unit) capsule (Vitamin D3) 2,000 unitPO DAILY 06/17/19 [History Confirmed 11/04/22] ferrous sulfate 325 mg (65 mg iron) tablet (iron) 325 mg PO DAILY 07/22/19 [History Confirmed 11/04/22] fenofibrate nanocrystallized 145 mg tablet (Tricor) 145 mg PO DAILY 04/29/20 [History Confirmed 11/04/22] furosemide 40 mg tablet (Lasix) 40 mg PO DAILY 04/29/20 [History Confirmed 11/04/22] levothyroxine 100 mcg tablet (Synthroid) 100 mcg PO DAILY.AC.BKFAST 04/29/20 [History Confirmed 11/04/22] ascorbic acid (vitamin C) 100 mg tablet (Vitamin C) 100 mg PO DAILY 07/29/22 [History Confirmed 11/04/22] carvedilol 25 mg tablet 25 mg PO BID 07/29/22 [History Confirmed 11/04/22] hydralazine 25 mg tablet 25 mg PO BID 07/29/22 [History Confirmed 11/04/22] insulin regular hum U-500 conc 500 unit/mL(3 mL) subcut pen (Humulin R U-500 (Conc) Insulin Kwikpen) 45 unit subcut DAILY 07/29/22 [History Confirmed 11/04/22] insulin regular hum U-500 conc 500 unit/mL(3 mL) subcut pen (Humulin R U-500 (Conc) Insulin Kwikpen) 70 unit subcut QAM 07/29/22 [History Confirmed 11/04/22] vitamin A 2,400 mcg capsule 2,400 mcg PO DAILY 07/29/22 [History Confirmed 11/04/22] vitamin B complex 1 tab PO DAILY 07/29/22 [History Confirmed 11/04/22] zinc acetate 25 mg (zinc) capsule 25 mg PO DAILY 07/29/22 [History Confirmed 11/04/22] pregabalin 50 mg capsule (Lyrica) 50 mg PO DAILY 10/10/22 [History Confirmed 11/04/22] nifedipine 90 mg tablet,extended release 90 mg PO DAILY 11/04/22 [History Confirmed 11/04/22] Exam Physical Exam Vital Signs: Temp Pulse Resp BP Pulse Ox O2 Del Method 99.1 F H 83 20 213/97 H 99 Room Air 11/04/22 13:57 11/04/22 19:10 11/04/22 18:12 11/04/22 19:10 11/04/22 18:12 11/04/22 18:12 Results Lab Results Labs: Laboratory Last Values Corrected WBC 12.2 X10E3/uL (4.1-10.5) H 11/04/22 15:11 Uncorrected WBC Count 12.2 x10E3/uL (4.1-10.5) H 11/04/22 15:11 RBC 3.32 X10E6/uL (3.90-5.60) L 11/04/22 15:11 Hgb 9.8 g/dL (13.0-17.0) L 11/04/22 15:11 Hct 30.2 % (38.8-50.0) L 11/04/22 15:11 MCV 90.9 fl (83.5-101) 11/04/22 15:11 MCH 29.6 pg (27.5-35.2) 11/04/22 15:11 MCHC 32.6 g/dL (32.5-35.6) 11/04/22 15:11 RDW 14.5 % (12.0-14.8) 11/04/22 15:11 Plt Count 418 x10E3/uL (150-450) 11/04/22 15:11 MPV 6.7 fl (6.6-10.1) 11/04/22 15:11 Neut % (Auto) 74.8 % (.) 11/04/22 15:11 Lymph % (Auto) 12.4 % (.) 11/04/22 15:11 Addison % (Auto) 9.0 % (.) 11/04/22 15:11 Eos % (Auto) 2.7 % (.) 11/04/22 15:11 Baso % (Auto) 1.1 % (.) 11/04/22 15:11 Nucleat RBC Rel Count 0.0 /100 WBC (0-0.5) 11/04/22 15:11 Neut # (Auto) 9.1 x10E3/uL (1.8-7.7) H 11/04/22 15:11 Lymph # (Auto) 1.5 x10E3/uL (1.00-4.8) 11/04/22 15:11 Addison # (Auto) 1.1 x10E3/uL (0.0-0.8) H 11/04/22 15:11 Eos # (Auto) 0.3 x10E3/uL (0.0-0.45) 11/04/22 15:11 Baso # (Auto) 0.1 x10E3/uL (0.0-0.2) 11/04/22 15:11 Monocyte Dist Width 17.32 % (0.00-20.00) 11/04/22 15:11 PT 12.4 Seconds (9.0-12.9) 11/04/22 15:11 INR 1.1 11/04/22 15:11 APTT 35.0 Seconds (25.1-36.5) 11/04/22 15:11 PHA Creatinine Clear 22.99 11/04/22 15:11 Sodium 138 mmol/L (136-146) 11/04/22 15:11 Potassium 5.3 mmol/L (3.5-5.1) H 11/04/22 15:11 Chloride 112 mmol/L (95-114) 11/04/22 15:11 Carbon Dioxide 17.3 mmol/L (22.0-30.0) L 11/04/22 15:11 Anion Gap 14.0 mEq/L (6.0-15.0) 11/04/22 15:11 BUN 52 mg/dL (9-23) H 11/04/22 15:11 Creatinine 5.77 mg/dL (0.64-1.27) H 11/04/22 15:11 Est GFR ( Amer) 13 mL/Min 11/04/22 15:11 Est GFR (Non-Af Amer) 10 mL/Min 11/04/22 15:11 Glucose 82 mg/dL (70-100) 11/04/22 15:11 Calcium 8.9 mg/dL (8.2-10.2) 11/04/22 15:11 Phosphorus 3.8 mg/dL (2.5-4.6) 11/04/22 15:11 Magnesium 1.6 mg/dL (1.6-2.6) 11/04/22 15:11 Total Bilirubin 0.3 mg/dL (0.3-1.2) 11/04/22 15:11 AST 14 U/L (10-42) 11/04/22 15:11 ALT 23 U/L (10-60) 11/04/22 15:11 Alkaline Phosphatase 59 U/L (32-92) 11/04/22 15:11 Troponin I High Sens 10 pg/mL (0-20) 11/04/22 15:11 B-Natriuretic Peptide 27.0 pg/mL (5-100) 11/04/22 15:11 Total Protein 7.5 gm/dL (6.1-7.9) 11/04/22 15:11 Albumin 3.3 gm/dL (3.2-5.5) 11/04/22 15:11 Globulin 4.2 gm/dL 11/04/22 15:11 Albumin/Globulin Ratio 0.8 11/04/22 15:11 Urine Color Yellow (Yellow) 11/04/22 14:04 Urine Appearance Clear (Clear) 11/04/22 14:04 Urine pH 5.5 (5.0-9.0) 11/04/22 14:04 Ur Specific [place] 1.013 (1.001-1.030) 11/04/22 14:04 Urine Protein 300 mg/dL (Negative) H 11/04/22 14:04 Urine Glucose (UA) 100 mg/dL (Normal) H 11/04/22 14:04 Urine Ketones Negative (Negative) 11/04/22 14:04 Urine Occult Blood 1+ (Negative) H 11/04/22 14:04 Urine Nitrite Negative (Negative) 11/04/22 14:04 Urine Bilirubin Negative (Negative) 11/04/22 14:04 Urine Urobilinogen Normal mg/dL (Normal) 11/04/22 14:04 Ur Leukocyte Esterase Negative (Negative) 11/04/22 14:04 Urine RBC 3-4 /HPF (0-4) 11/04/22 14:04 Urine WBC 1-2 /HPF (0-4) 11/04/22 14:04 Ur Squamous Epith Cells 0-1 /HPF (0-2) 11/04/22 14:04 Urine Bacteria None seen (None Seen) 11/04/22 14:04 Hyaline Casts 0-8 /LPF (0-8) 11/04/22 14:04 Documented By: Chintan Brewster DO 11/04/22 20 07 Signed By: <Electronically signed by Chintan Brewster DO> 11/04/222010 [facility] Work Phone: 1(110) 785-483512-07-2022 Evaluation note* Encounter Date Diagnosis Assessment Notes Treatment Notes Treatment Clinical Notes Aug, Type 2 diabetes conrad itus with diabetic chronic kidney disease (ICD-10 - E11.22) His blood sugars are within acceptable range. I have advised him to continue to follow with PCP for DM management. He was taken off of the lisinopril due to the hyperkalemia. 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 His serum creatinine is 5.0 mg/dL. His renal function is declining due to progression of his CKD. I discussed with him the importance of good DM and HTN control to slow down the progression of disease. I also discussed with him the different option of DEFECTIVE CIGARETTE SLITTER including PD, 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 He is interested in PD. No need to initiate dialysis now. We will refer to the Dr. Allred once he needed to be initiated on PD. I have encouraged him to lose weight for kidney transplant. Continue follow with continues to [place] [facility]. He is a suitable candidate for preemptive kidney transplant with initiation of dialysis. Aug, Hypertensive chronic kidney disease with stage 1 through stage 4 chronic kidney disease, or unspecified chronic kidney disease (ICD-10 - I12.9) His blood pressure is controlled. Continue hydralazine 25 mg p.o. twice daily. Continue current dose of the nifedipine, Lasix and carvedilol. I have advised him to monitor the blood pressure at home and call office if stays above 140/90 mmHg. Aug, Secondary hyperparathyroidism (ICD-10 - N25.81) His phosphorus, PTH and calcium are within normal limits. He has Vit D deficiency Increase oral Vit D . I provided him a low phosphorus diet information. 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 He has adequate iron stores and normal B12 and folate level. Continue oral Iron Aug, Persistent proteinur ia (ICD-10 - R80.1) He has nephrotic range proteinuria likely due to the diabetic nephropathy. He has a mildly elevated free light chain ratio likely due to CKD. He has unremarkable SPEP, UPEP, serum and urine immunofixation. Aug, Hyperkalemia (ICD-10 - E87.5) His potassium has improved with dietary modification and discontinuation of lisinopril. I have advised him to take low potassium diet. [facility] Other 10-18-2022 Hospital Discharge instructions Additional Instructions Your kidney function is within your usual range. There has been no significant worsening over the last few months. Your blood sugar is okay tonight. It was only 150 here. In terms of overall management, please call Dr. Ricketts tomorrow to discuss with her any changes in your insulin.[facility] Work Phone: [phone]) 268-350009-14-2022 Evaluation note* Encounter Date Diagnosis Assessment Notes Treatment Notes Treatment Clinical Notes May, Type 2 diabetes conrad itus with diabetic chronic kidney disease (ICD-10 - E11.22) His blood sugars are within acceptable range. I have advised him to continue to follow with PCP for DM management. He was taken off of the lisinopril due to the hyperkalemia. 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 His serum creatinine is 5.0 mg/dL. His renal function is declining due to progression of his CKD. I discussed with him the importance of good DM and HTN control to slow down the progression of disease. I also discussed with him the different option of DEFECTIVE CIGARETTE SLITTER including PD, 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 He is interested in PD. No need to initiate dialysis now. We will refer to the Dr. Allred once he needed to be initiated on PD. I have encouraged him to lose weight for kidney transplant. Continue follow with continues to [place] [facility]. May, Hypertensive chronic kidney disease with stage 1 through stage 4 chronic kidney disease, or unspecified chronic kidney disease (ICD-10 - I12.9) His blood pressure is high today in the office but reported to be within the goal at home. Continue hydralazine 25 mg p.o. twice daily. Continue current dose of the nifedipine, Lasix and carvedilol. I have advised him to monitor the blood pressure at home and call office if stays above 140/90 mmHg. May, Secondary hyperparathyroidism (ICD-10 - N25.81) His phosphorus, PTH and calcium are within normal limits. He has Vit D deficiency Continue oral Vit D . I provided him a low phosphorus diet information. 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 He has low iron stores and normal B12 and folate level. Continue oral Iron May, Persistent proteinur ia (ICD-10 - R80.1) He has nephrotic range proteinuria likely due to the diabetic nephropathy. He has a mildly elevated free light chain ratio likely due to CKD. He has unremarkable SPEP, UPEP, serum and urine immunofixation. May, Hyperkalemia (ICD-10 - E87.5) His potassium has improved with dietary modification and discontinuation of lisinopril. I have advised him to take low potassium diet. [facility] Other 07-07-2022 Evaluation note* Encounter Date Diagnosis Assessment Notes Treatment Notes Treatment Clinical Notes Mar, Type 2 diabetes conrad itus with diabetic chronic kidney disease (ICD-10 - E11.22) His blood sugars are within acceptable range. I have advised him to continue to follow with PCP for DM management. He was taken off of the lisinopril due to the hyperkalemia. Mar, CKD (chronic kidney disease) stage 5, GFR less than 15 ml/min (ICD-10 - N18.5) He has CKD due to the diabetic nephropathy and hypertensive nephrosclerosis. His serum creatinine is 4.6 mg/dL. His renal function is declining due to progression of his CKD. I discussed with him the importance of good DM and HTN control to slow down the progression of disease. I also discussed with him the different option of DEFECTIVE CIGARETTE SLITTER including PD, 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 He is interested in PD. I have encouraged him to lose weight for kidney transplant. Continue follow with continues to [facility] [place]. Mar, Hypertensive chronic kidney disease with stage 1 through stage 4 chronic kidney disease, or unspecified chronic kidney disease (ICD-10 - I12.9) His blood pressure is high. Start hydralazine 25 mg p.o. twice daily. Continue current dose of the nifedipine, Lasix and carvedilol. I have advised him to monitor the blood pressure at home and call office if stays above 140/90 mmHg. Mar, Secondary hyperparathyroidism (ICD-10 - N25.81) His phosphorus, PTH and calcium are within normal limits. He has Vit D deficiency Continue oral Vit D . I provided him a low phosphorus diet information. Mar, Anemia secondary to renal failure (ICD-10 - D63.1) His hemoglobin is within the goal. He has a good iron stores and normal B12 and folate level. Continue oral Iron Mar, Persistent proteinur ia (ICD-10 - R80.1) He has nephrotic range proteinuria likely due to the diabetic nephropathy. He has a mildly elevated free light chain ratio likely due to CKD. He has unremarkable SPEP, UPEP, serum and urine immunofixation. Mar, Hyperkalemia (ICD-10 - E87.5) His potassium has improved with dietary modification and discontinuation of lisinopril. I have advised him to take low potassium diet. [employer] Other 06-23-2022 NotePROCEDURE: XR FOOT RT MIN 3 VIEWS HISTORY: Pain in right foot COMPARISON: XR foot right 10/23/2021 FINDINGS: BONES:Mechanical fusion of the hindfoot and midfoot, and first metatarsophalangeal joint. Fracture of the proximal most screw within the medial plate. Marked degenerative changes of the tarsal-metatarsal joints of all 5 digits. No bone fracture. SOFT TISSUES:No visible soft tissue swelling. EFFUSION:None visible. OTHER: Negative. IMPRESSION: 1. No appreciable acute abnormality. 2. Stable surgical changes with known fracture of a proximal screw within the medial plate. Electronically authenticated by: VIRGINIA GARCIA Date: 2022-02-26 16:16[facility]03-30-2022 Evaluation note* Encounter Date Diagnosis Assessment Notes Treatment Notes Treatment Clinical Notes Nov, Type 2 diabetes conrad itus with diabetic chronic kidney disease (ICD-10 - E11.22) His blood sugars are within acceptable range. I have advised him to continue to follow with PCP for DM management. He was taken off of the lisinopril due to the hyperkalemia. Nov, Chronic kidney disea se, stage 4 (severe) (ICD-10 - N18.4) He has CKD due to the diabetic nephropathy and hypertensive nephrosclerosis. His serum creatinine is 4.2 mg/dL. His renal function is declining due to progression of his CKD. I discussed with him the importance of good DM and HTN control to slow down the progression of disease. I also discussed with him the different option of DEFECTIVE CIGARETTE SLITTER including PD, 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 He is interested in PD. I have encouraged him to lose weight for kidney transplant. Continue follow with continues to [facility]. Nov, Hypertensive chronic kidney disease with stage 1 through stage 4 chronic kidney disease, or unspecified chronic kidney disease (ICD-10 - I12.9) His blood pressure is high in our office but controlled at home and other providers office and he appears to be euvolemic. Continue Lasix 80 mg daily. Continue other antihypertensive medication. I have advised him to monitor the blood pressure at home and call office if stays above 140/90 mmHg. Nov, Secondary hyperparathyroidism (ICD-10 - N25.81) His phosphorus, PTH and calcium are within normal limits. He has Vit D deficiency Continue oral Vit D . I provided him a low phosphorus diet information. 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 He has a good iron stores and normal B12 and folate level. Continue oral Iron Nov, Persistent proteinur ia (ICD-10 - R80.1) He has nephrotic range proteinuria likely due to the diabetic nephropathy. He has a mildly elevated free light chain ratio likely due to CKD. He has unremarkable SPEP, UPEP, serum and urine immunofixation. Nov, Hyperkalemia (ICD-10 - E87.5) His potassium has improved with dietary modification and discontinuation of lisinopril. I have advised him to take low potassium diet. [employer] Other [id number] NoteHISTORY: Follow up prior CT, left adrenal gland mass, lymph nodes PROCEDURE: Axial helical 2.5 mm images through the abdomen and pelvis were performed without intravenous or oral contrast administration. Coronal reconstructed images were obtained. FINDINGS: Comparison made with recent abdomen/pelvis CT of June 09, 2021. Lymph nodes: Stable, low volume, aorto-caval, iliac, and femoral locations. Similar measurements described on the prior report. No new lymph node aggregates. Adrenal glands: Stable left adrenal gland 2 x 2 cm low density nodule. Normal right adrenal gland. Kidneys and collecting systems: No change. Perinephric standing, no mass, stone formation, or collecting system dilatation. Remainder of the examination is unchanged including lung bases, liver (fatty replaced), spleen, pancreas, gallbladder, biliary tree, small and large bowel, bladder, and prostate gland. IMPRESSION: Stable lymph node and left adrenal gland findings. Recommend follow-up CT in 6 months. Report reported and signed by Anibal Calle on 08/21/[address] [place] [address] Medical SpecialistConsult note Author Flakito High [facility] November 05, 2022 12:31pm Note Date/Time November 05, 2022 12:3 1pm [facility] [address] [place] [address] General Surgery Consult Note Signed Patient: Evans Forte MR#: [id number] : 1970 Acct:[id number] Age/Sex: 52 / M Adm Date: 3 Loc: Room: [address] [place] [address] Type: ADM IN Attending Dr: Chintan Brewster DO Copies to: DO Chintan Dhillon, DO Flakito HighDO~ History of Present Illness Date of consult: 11/05/2022 Requesting/Attending Provider: Chintan Brewster DO History of present illness: Patient has had worsening kidney function and it is gotten to the point where heneeds to start peritoneal dialysis. He is very motivated to do that instead of hemodialysis. 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 He is not having any abdominal pain. His not having any nausea or vomiting. He is not having any current active infections. I had seen him in the office for some lipoma issue, he was not cleared to have any surgery because of his nephrology issues. Review of Systems Review of Systems All other systems reviewed & are negative unless noted below or in HPI PMFSH Vaccinated for COVID-19?: Yes Medical History (Updated 11/04/22 @ 17:35 by Delano Mondragon MD) Cellulitis Diabetes mellitus, type 2 Hypertension Neuropathy Renal insufficiency Surgical History History of orthopedic surgery right foot has 14 screws and 3 plates. Family History Other No significant family history Social History Smoking Status: Never smoker Tobacco Type: cigarettes Substance Use Type: None Substance Abuse Comment: chewing tobacco Allergies & Medications Medications and Allergies Allergies No Known Allergies Allergy (Verified 11/04/22 13:54) Home Medications atorvastatin 20 mg tablet (Lipitor) 20 mg PO DAILY 07/15/18 [History Confirmed 11/04/22] cholecalciferol (vitamin D3) 50 mcg (2,000 unit) capsule (Vitamin D3) 2,000 unitPO DAILY 06/17/19 [History Confirmed 11/04/22] ferrous sulfate 325 mg (65 mg iron) tablet (iron) 325 mg PO DAILY 07/22/19 [History Confirmed 11/04/22] fenofibrate nanocrystallized 145 mg tablet (Tricor) 145 mg PO DAILY 04/29/20 [History Confirmed 11/04/22] furosemide 40 mg tablet (Lasix) 40 mg PO DAILY 04/29/20 [History Confirmed 11/04/22] levothyroxine 100 mcg tablet (Synthroid) 100 mcg PO DAILY.AC.BKFAST 04/29/20 [History Confirmed 11/04/22] ascorbic acid (vitamin C) 100 mg tablet (Vitamin C) 100 mg PO DAILY 07/29/22 [History Confirmed 11/04/22] carvedilol 25 mg tablet 25 mg PO BID 07/29/22 [History Confirmed 11/04/22] hydralazine 25 mg tablet 25 mg PO BID 07/29/22 [History Confirmed 11/04/22] insulin regular hum U-500 conc 500 unit/mL(3 mL) subcut pen (Humulin R U-500 (Conc) Insulin Kwikpen) 45 unit subcut DAILY 07/29/22 [History Confirmed 11/04/22] insulin regular hum U-500 conc 500 unit/mL(3 mL) subcut pen (Humulin R U-500 (Conc) Insulin Kwikpen) 70 unit subcut QAM 07/29/22 [History Confirmed 11/04/22] vitamin A 2,400 mcg capsule 2,400 mcg PO DAILY 07/29/22 [History Confirmed 11/04/22] vitamin B complex 1 tab PO DAILY 07/29/22 [History Confirmed 11/04/22] zinc acetate 25 mg (zinc) capsule 25 mg PO DAILY 07/29/22 [History Confirmed 11/04/22] pregabalin 50 mg capsule (Lyrica) 50 mg PO DAILY 10/10/22 [History Confirmed 11/04/22] nifedipine 90 mg tablet,extended release 90 mg PO DAILY 11/04/22 [History Confirmed 11/04/22] Active Medications Ascorbic Acid (Ascorbic Acid 500 Mg Tablet) 500 mg PO DAILY [facility] Stop: 11/05/23 08:59 Last Admin: 11/05/22 08:49 Dose: 500 mg Atorvastatin Calcium (Atorvastatin 20 Mg Tablet) 20 mg PO DAILY [facility] Stop: 11/05/23 08:59 Last Admin: 11/05/22 08:50 Dose: 20 mg Carvedilol (Carvedilol 25 Mg Tablet) 25 mg PO BID [facility] Stop: 11/04/23 20:59 Last Admin: 11/05/22 08:50 Dose: 25 mg Emollient Ointment (Petrolatum,White 99 Gm Oint...G.) 1 applic TOPICAL DAILY [facility] Stop: 11/05/23 09:59 Fenofibrate (Fenofibrate Nanocrystallized 145 Mg Tablet) 145 mg PO DAILY [facility] Stop: 11/05/23 08:59 Last Admin: 11/05/22 08:48 Dose: 145 mg Ferrous Sulfate (Ferrous Sulfate 324 Mg Tablet.Dr) 324 mg PO DAILY [facility] Stop: 11/05/23 08:59 Last Admin: 11/05/22 08:52 Dose: 324 mg Folic Acid (Cyanocobalamin/Fa/Pyridoxine 1 Tab Tablet) 1 tab PO DAILY [facility] Stop: 11/05/23 08:59 Last Admin: 11/05/22 08:48 Dose: 1 tab Heparin Sodium (Porcine) (Heparin 5,000 Unit/Ml Vial) 5,000 unit SUBCUT Q8HR [facility] Stop: 11/05/23 13:59 Hydralazine HCl (Hydralazine 20 Mg/Ml Vial) 10 mg IV-PUSH Q4H PRN PRN Reason: if SBP > 185 Stop: 11/04/23 23:30 Last Admin: 11/04/22 23:40 Dose: 10 mg Hydralazine HCl (Hydralazine 50 Mg Tablet) 50 mg PO TID [facility] Stop: 11/05/23 05:59 Last Admin: 11/05/22 08:52 Dose: 50 mg Insulin Human Regular (Insulin Regular U-500, Human 1,500 Unit/3 Ml Insuln.Pen) 45 unit SUBCUT DAILY@1700 [facility] Stop: 11/05/23 16:59 Insulin Human Regular (Insulin Regular U-500, Human 1,500 Unit/3 Ml Insuln.Pen) 70 unit SUBCUT DAILY@0600 [facility] Stop: 11/05/23 05:59 Last Admin: 11/05/22 08:05 Dose: 70 unit Labetalol HCl (Labetalol 100 Mg/20 Ml Vial) 10 mg IV-PUSH Q10M PRN PRN Reason: Hypertension Stop: 11/04/23 16:31 Last Admin: 11/04/22 21:41 Dose: 10 mg Levothyroxine Sodium (Levothyroxine 100 Mcg Tablet) 100 mcg PO DAILY@0630 [facility] Stop: 11/05/23 06:29 Last Admin: 11/05/22 06:10 Dose: 100 mcg Nifedipine (Nifedipine Er.24hr 90 Mg Tab.Er.24) 90 mg PO DAILY [facility] Stop: 11/05/23 08:59 Last Admin: 11/05/22 08:52 Dose: 90 mg Pregabalin (Pregabalin 50 Mg Capsule) 50 mg PO DAILY [facility] Stop: 05/04/23 08:59 Last Admin: 11/05/22 08:52 Dose: 50 mg Sodium Bicarbonate (Sodium Bicarbonate 650 Mg Tablet) 650 mg PO BID [facility] Stop: 11/05/23 10:29 Last Admin: 11/05/22 12:03 Dose: 650 mg Sodium Chloride (Sodium Chloride 0.9 % 10 Ml Syringe) 0 ml IV-PUSH PRN PRN PRN Reason: Flush Stop: 11/04/23 13:53 Vitamin A (Vitamin A 3,000 Mcg (10,000 Units) Capsule) 3,000 mcg PO DAILY [facility] Stop: 11/05/23 08:59 Last Admin: 11/05/22 08:52 Dose: 3,000 mcg Vitamin D (Cholecalciferol 25 Mcg (1,000 Units) Tablet) 50 mcg PO DAILY [facility] Stop: 11/05/23 08:59 Last Admin: 11/05/22 08:50 Dose: 50 mcg Zinc Gluconate (Zinc Gluconate 50 Mg Tablet) 50 mg PO DAILY [facility] Stop: 11/05/23 08:59 Last Admin: 11/05/22 08:52 Dose: 50 mg Exam Physical Exam Vital Signs: Temp Pulse Resp BP Pulse Ox O2 Del Method 98.4 F 84 16 178/80 H 96 Room Air 11/05/22 12:00 11/05/22 12:00 11/05/22 12:00 11/05/22 12:00 11/05/22 12:00 11/05/22 12:00 Narrative: Patient is pleasant conversive nontoxic. Head is atraumatic normocephalic. Eyes are without any scleral icterus. Neck no anterior posterior cervical lymphadenopathy. Heart is regular rate rhythm. Lungs are clear. Abdomen is obese soft nontender nondistended. No surgical scars. Results Intake and Output 24 hour I&O: Intake & Output 11/04/22 11/05/22 11/05/22 23:59 07:59 15:59 Weight 145 kg Labs 11/05/22 04:24 11/05/22 04:24 Laboratory Results - last 72 hr 11/05/22 12:16: POC Glucose 156, POC Glucose Comment Glu2: cleaned meter 11/05/22 06:09: POC Glucose 120 11/05/22 04:24: PHA Creatinine Clear 21.93, Sodium 138, Potassium 4.6, Chloride 112, Carbon Dioxide 16.7 L, Anion Gap 13.9, BUN 56 H, Creatinine 6.05 H, Est GFR( Amer) 12, Est GFR (Non-Af Amer) 10, Glucose 98, Calcium 8.7 11/05/22 04:24: Corrected WBC 13.6 H, Uncorrected WBC Count 13.6 H, RBC 3.28 L, Hgb 9.8 L, Hct 29.8 L, MCV 90.8, MCH 29.8, MCHC 32.8, RDW 14.4, Plt Count 400, MPV 7.1, Neut % (Auto) 72.3, Lymph % (Auto) 14.6, Addison % (Auto) 9.5, Eos % (Auto) 2.8, Baso % (Auto) 0.8, Nucleat RBC Rel Count 0.0, Neut # (Auto) 9.8 H, Lymph # (Auto) 2.0, Addison # (Auto) 1.3 H, Eos # (Auto) 0.4, Baso # (Auto) 0.1 11/04/22 21:03: POC Glucose 159 11/04/22 15:11: B-Natriuretic Peptide 27.0 11/04/22 15:11: Troponin I High Sens 10 11/04/22 15:11: PT 12.4, INR 1.1, APTT 35.0 11/04/22 15:11: PHA Creatinine Clear 22.99, Sodium 138, Potassium 5.3 H, Chloride 112, Carbon Dioxide 17.3 L, Anion Gap 14.0, BUN 52 H, Creatinine 5.77 H, Est GFR ( Amer) 13, Est GFR (Non-Af Amer) 10, Glucose 82, Calcium 8.9, Phosphorus 3.8, Magnesium 1.6, Total Bilirubin 0.3, AST 14, ALT 23, Alkaline Phosphatase 59, Total Protein 7.5, Albumin 3.3, Globulin 4.2, Albumin/Globulin Ratio 0.8 11/04/22 15:11: Corrected WBC 12.2 H, Uncorrected WBC Count 12.2 H, RBC 3.32 L, Hgb 9.8 L, Hct 30.2 L, MCV 90.9, MCH 29.6, MCHC 32.6, RDW 14.5, Plt Count 418, MPV 6.7, Neut % (Auto) 74.8, Lymph % (Auto) 12.4, Addison % (Auto) 9.0, Eos % (Auto) 2.7, Baso % (Auto) 1.1, Nucleat RBC Rel Count 0.0, Neut # (Auto) 9.1 H, Lymph # (Auto) 1.5, Addison # (Auto) 1.1 H, Eos # (Auto) 0.3, Baso # (Auto) 0.1, Monocyte Dist Width 17.32 11/04/22 14:04: Urine Color Yellow, Urine Appearance Clear, Urine pH 5.5, Ur Specific [place] 1.013, Urine Protein 300 H, Urine Glucose (UA) 100 H, Urine Ketones Negative, Urine Occult Blood 1+ H, Urine Nitrite Negative, Urine Bilirubin Negative, Urine Urobilinogen Normal, Ur Leukocyte Esterase Negative, Urine RBC 3-4, Urine WBC 1- 2, Ur Squamous Epith Cells 0-1, Urine Bacteria None seen, Hyaline Casts 0-8 A&P - General Surgery (1) Chronic kidney disease with end stage renal disease on dialysis due to type 2 diabetes mellitus: Plan: Plan is for laparoscopic placement of peritoneal dialysis catheter tomorrow. Hewill be n.p.o. after midnight. I discussed with him and his the surgery, the risks and the benefits and the potential complications including but not limited to bleeding, infection, nonfunction of catheter, catheter infections or peritonitis related to peritoneal dialysis, damage to intra-abdominal structures. He would like to proceed. Code(s): E11.22 - Type 2 diabetes mellitus with diabetic chronic kidney disease; N18.6 - End stage renal disease; Z99.2 - Dependence on renal dialysis Status: Chronic Documented By: Flakito High DO 11/05/22 1228 Signed By: <Electronically signed by DO Flakito High> 11/05/22 1231 [facility] Work Phone: Consult note Author Yocasta Villalba [facility] November 05, 2022 2:39pm Note Date/Time November 05, 2022 2:39 pm [facility] [address] [place] [address] Nephrology Consult Note Signed Patient: JannEvans MR#: [id number] : 1970 Acct:[id number] Age/Sex: 52 / M Adm Date: 3 Loc: Room: [address] [place] [address] Type: ADM IN Attending Dr: Chintan Brewster DO Copies to: DO Yocasta Dhillon MD Michael R. Frings, DO~ Providers Consult Date: 11/05/22 Requesting Provider: Chintan Brewster DO Primary Care Provider: Idania Ricketts DO HPI Reason for Consult: Chronic kidney disease stage V History of Present Illness: This is a 52-year-old male patient with a past sickle history of chronic kidney disease stage V from diabetic nephropathy, hypertension, morbid obesity, anemia of renal disease, neuropathy. 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 Patient is known to Dr. Waters and he has been following with him for CKD stage V. Lab workin the emergency room showed potassium 5.3 mmol/L. Patient was giving calcium chloride along with Lokelma and 1 dose of the Lasix. Patient also started on IVfluid normal saline 75 cc/h. Serum potassium this morning 4.6 mmol/L. Renal team was consulted for CKD stage V, hypertension and electrolyte imbalance management. Noted high blood pressure this morning. Patient has been on the same home medications Coreg, hydralazine, nifedipine. Noted metabolic acidosis with serum bicarb level 16.7 mmol/L Patient denied nausea vomiting. He has mild edema of lower extremity. No itchiness no chest pain. No cough. Has been having nasal congestion with headache for the last few days. Noted mild fever this morning. White cell count 13 Review of Systems Review of Systems Review of systems: 12 system review is negative today except what mentioned HPI PMFSH Vaccinated for COVID-19?: Yes Medical History (Updated 11/05/22 @ 14:36 by Yocasta Villalba MD) Cellulitis Diabetes mellitus, type 2 Hypertension Neuropathy Renal insufficiency Surgical History History of orthopedic surgery right foot has 14 screws and 3 plates. Family History Other No significant family history Social History Smoking Status: Never smoker Tobacco Type: cigarettes Substance Use Type: None Substance Abuse Comment: chewing tobacco Meds Medications & Allergies Allergies No Known Allergies Allergy (Verified 11/04/22 13:54) Home Medications atorvastatin 20 mg tablet (Lipitor) 20 mg PO DAILY 07/15/18 [History Confirmed 11/04/22] cholecalciferol (vitamin D3) 50 mcg (2,000 unit) capsule (Vitamin D3) 2,000 unitPO DAILY 06/17/19 [History Confirmed 11/04/22] ferrous sulfate 325 mg (65 mg iron) tablet (iron) 325 mg PO DAILY 07/22/19 [History Confirmed 11/04/22] fenofibrate nanocrystallized 145 mg tablet (Tricor) 145 mg PO DAILY 04/29/20 [History Confirmed 11/04/22] furosemide 40 mg tablet (Lasix) 40 mg PO DAILY 04/29/20 [History Confirmed 11/04/22] levothyroxine 100 mcg tablet (Synthroid) 100 mcg PO DAILY.AC.BKFAST 04/29/20 [History Confirmed 11/04/22] ascorbic acid (vitamin C) 100 mg tablet (Vitamin C) 100 mg PO DAILY 07/29/22 [History Confirmed 11/04/22] carvedilol 25 mg tablet 25 mg PO BID 07/29/22 [History Confirmed 11/04/22] hydralazine 25 mg tablet 25 mg PO BID 07/29/22 [History Confirmed 11/04/22] insulin regular hum U-500 conc 500 unit/mL(3 mL) subcut pen (Humulin R U-500 (Conc) Insulin Kwikpen) 45 unit subcut DAILY 07/29/22 [History Confirmed 11/04/22] insulin regular hum U-500 conc 500 unit/mL(3 mL) subcut pen (Humulin R U-500 (Conc) Insulin Kwikpen) 70 unit subcut QAM 07/29/22 [History Confirmed 11/04/22] vitamin A 2,400 mcg capsule 2,400 mcg PO DAILY 07/29/22 [History Confirmed 11/04/22] vitamin B complex 1 tab PO DAILY 07/29/22 [History Confirmed 11/04/22] zinc acetate 25 mg (zinc) capsule 25 mg PO DAILY 07/29/22 [History Confirmed 11/04/22] pregabalin 50 mg capsule (Lyrica) 50 mg PO DAILY 10/10/22 [History Confirmed 11/04/22] nifedipine 90 mg tablet,extended release 90 mg PO DAILY 11/04/22 [History Confirmed 11/04/22] Active Medications: Active Medications Ascorbic Acid (Ascorbic Acid 500 Mg Tablet) 500 mg PO DAILY [facility] Stop: 11/05/23 08:59 Last Admin: 11/05/22 08:49 Dose: 500 mg Atorvastatin Calcium (Atorvastatin 20 Mg Tablet) 20 mg PO DAILY [facility] Stop: 11/05/23 08:59 Last Admin: 11/05/22 08:50 Dose: 20 mg Carvedilol (Carvedilol 25 Mg Tablet) 25 mg PO BID [facility] Stop: 11/04/23 20:59 Last Admin: 11/05/22 08:50 Dose: 25 mg Emollient Ointment (Petrolatum,White 99 Gm Oint...G.) 1 applic TOPICAL DAILY [facility] Stop: 11/05/23 09:59 Fenofibrate (Fenofibrate Nanocrystallized 145 Mg Tablet) 145 mg PO DAILY [facility] Stop: 11/05/23 08:59 Last Admin: 11/05/22 08:48 Dose: 145 mg Ferrous Sulfate (Ferrous Sulfate 324 Mg Tablet.) 324 mg PO DAILY [facility] Stop: 11/05/23 08:59 Last Admin: 11/05/22 08:52 Dose: 324 mg Folic Acid (Cyanocobalamin/Fa/Pyridoxine 1 Tab Tablet) 1 tab PO DAILY [facility] Stop: 11/05/23 08:59 Last Admin: 11/05/22 08:48 Dose: 1 tab Heparin Sodium (Porcine) (Heparin 5,000 Unit/Ml Vial) 5,000 unit SUBCUT Q8HR [facility] Stop: 11/05/23 13:59 Hydralazine HCl (Hydralazine 20 Mg/Ml Vial) 10 mg IV-PUSH Q4H PRN PRN Reason: if SBP > 185 Stop: 11/04/23 23:30 Last Admin: 11/04/22 23:40 Dose: 10 mg Hydralazine HCl (Hydralazine 50 Mg Tablet) 50 mg PO TID [facility] Stop: 11/05/23 05:59 Last Admin: 11/05/22 08:52 Dose: 50 mg Insulin Human Regular (Insulin Regular U-500, Human 1,500 Unit/3 Ml Insuln.Pen) 45 unit SUBCUT DAILY@1700 [facility] Stop: 11/05/23 16:59 Insulin Human Regular (Insulin Regular U-500, Human 1,500 Unit/3 Ml Insuln.Pen) 70 unit SUBCUT DAILY@0600 [facility] Stop: 11/05/23 05:59 Last Admin: 11/05/22 08:05 Dose: 70 unit Labetalol HCl (Labetalol 100 Mg/20 Ml Vial) 10 mg IV-PUSH Q10M PRN PRN Reason: Hypertension Stop: 11/04/23 16:31 Last Admin: 11/04/22 21:41 Dose: 10 mg Levothyroxine Sodium (Levothyroxine 100 Mcg Tablet) 100 mcg PO DAILY@0630 [facility] Stop: 11/05/23 06:29 Last Admin: 11/05/22 06:10 Dose: 100 mcg Nifedipine (Nifedipine Er.24hr 90 Mg Tab.Er.24) 90 mg PO DAILY [facility] Stop: 11/05/23 08:59 Last Admin: 11/05/22 08:52 Dose: 90 mg Pregabalin (Pregabalin 50 Mg Capsule) 50 mg PO DAILY [facility] Stop: 05/04/23 08:59 Last Admin: 11/05/22 08:52 Dose: 50 mg Sodium Bicarbonate (Sodium Bicarbonate 650 Mg Tablet) 650 mg PO BID [facility] Stop: 11/05/23 10:29 Last Admin: 11/05/22 12:03 Dose: 650 mg Sodium Chloride (Sodium Chloride 0.9 % 10 Ml Syringe) 0 ml IV-PUSH PRN PRN PRN Reason: Flush Stop: 11/04/23 13:53 Vitamin A (Vitamin A 3,000 Mcg (10,000 Units) Capsule) 3,000 mcg PO DAILY [facility] Stop: 11/05/23 08:59 Last Admin: 11/05/22 08:52 Dose: 3,000 mcg Vitamin D (Cholecalciferol 25 Mcg (1,000 Units) Tablet) 50 mcg PO DAILY [facility] Stop: 11/05/23 08:59 Last Admin: 11/05/22 08:50 Dose: 50 mcg Zinc Gluconate (Zinc Gluconate 50 Mg Tablet) 50 mg PO DAILY [facility] Stop: 11/05/23 08:59 Last Admin: 11/05/22 08:52 Dose: 50 mg Exam Physical Exam Vital Signs: Temp Pulse Resp BP Pulse Ox O2 Del Method 98.0 F 83 18 173/78 H 97 Room Air 11/05/22 13:36 11/05/22 13:36 11/05/22 13:36 11/05/22 13:36 11/05/22 13:36 11/05/22 13:36 Narrative: General: No acute distress Head :atraumatic normocephalic Eyes: PERRLA. Neck: no JVD no bruit. Heart: S1-S2. RRR Respiratory: Clear to auscultation. No wheezing. No crackles Abdomen: Soft, positive bowel sounds,no tenderness. Neurology: Awake alert oriented x3. No focal deficits Extremity. No cyanosis. Trace edema of lower extremities Skin: No skin rash Results Labs 11/05/22 04:24 11/05/22 04:24 Labs: 11/04/22 11/04/22 11/05/22 14:04 15:11 04:24 BUN 52 H 56 H Creatinine 5.77 H 6.05 H Phosphorus 3.8 Albumin 3.3 Urine RBC 3-4 Urine WBC 1-2 Urine Bacteria None seen Radiology Impressions Impressions - last 24 hours: Impressions Chest X-Ray 11/04/22 14:05 IMPRESSION: NO ACUTE FINDINGS Impression dictated by: Anibal Escudero Jr., DHimanshuOHimanshu11/04/2022 3:50 PM Dictation Location: [place] [address] Any impression(s) listed above is documentation that was entered by the reading physician into a diagnostic report(s) for [facility] Forte. I have reviewed the report(s) and am incorporating any findings in the treatment plan of this patient where applicable. A&P - Nephrology Assessment/Plan (1) CKD (chronic kidney disease) stage 5, GFR less than 15 ml/min: Plan: Patient is known to Dr. 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 Patient has reached end-stage disease and he needs to be on renal placement therapy. Patient has opted for peritoneal dialysis. I consulted general surgeon for PD catheter placement. Surgery is scheduled for tomorrow (2) Insulin dependent diabetes mellitus: Plan: Patient has diabetes for many years. Currently on insulin as directed by the primary service (3) Hypertensive chronic kidney disease with stage 1 through stage 4 chronic kidney disease, or unspecified chronic kidney disease: Plan: Noted high blood pressure. Likely due to CKD progression. I will stop IV fluid. I will increase hydralazine dose. Continue home Lasix dose 40 mg p.o. daily. Continue to monitor blood pressure and adjust medications as needed (4) Hyperkalemia: Plan: Likely from metabolic acidosis and advanced CKD. This corrected with Lokelma. I will continue same dose of Lokelma. Continue home Lasix. Low potassium renaldiet (5) Metabolic acidosis: Plan: Likely from advanced CKD. Patient is already on sodium bicarb. I will increasethe dose to 1300 mg twice daily Documented By: Yocasta Villalba MD 11/05/22 1431 Signed By: <Electronically signed by Yocasta Villalba MD> 11/05/22 1439 [facility] Work Phone: Consult note Author Yocasta Villalba [facility] November 21, 2023 10:16am Note Date/Time November 21, 2023 10: 16am [facility] [address] [place] [address] Nephrology Consult Note Signed Patient: Evans Forte MR#: [id number] : 1970 Acct:[id number] Age/Sex: 53 / M Adm Date: 4 Loc: Room: [address] [place] [address] Type: ADM IN Attending Dr: Arnol Calloway MD Copies to: DO Yocasta Dhillon MD Frederick E Doamekpor, MD~ Providers Consult Date: 11/21/23 Requesting Provider: Arnol Calloway MD Primary Care Provider: Idania Ricketts DO HPI Reason for Consult: End-stage renal disease care History of Present Illness: This is a 53-year-old male patient with a past medical history of hypertension, hyperlipidemia, end-stage renal disease on TTS hemodialysis schedule at [facility], insulin-dependent diabetes mellitus, obstructive sleep apnea, right foot wound follows with wound clinic. Patient presented with diaphoresis nausea vomiting following hemodialysis session yesterday. In the emergency room he wasfound to have slight low blood pressure with fever. Patient was given IV fluid bolus 30 cc/kg. Blood culture was drawn and patient was given 1 dose of Zyvox and cefepime in the emergency room. Patient has a right IJ tunnel catheter. Blood culture still pending so far negative. Patient stated he is feeling better today. He had full session hemodialysis yesterday. Review of Systems Review of Systems Review of systems: 12 system review is negative today [facility] Medical History (Updated 11/21/23 @ 10:12 by Yocasta Villalba MD) Hypertension Hyperlipidemia End stage renal disease Dependence on renal dialysis Anemia Insulin long-term use Chronic kidney disease, stage 4 (severe) Sleep apnea no machine Pancreatitis Hypothyroid Hyperlipidemia Anemia Dependence on renal dialysis End stage renal disease PD catheter dysfunction Cellulitis Hypertension Neuropathy slim feet-tingling Renal insufficiency Diabetes mellitus, type 2 Surgical History [place] of cardiac [place] [facility] of orthopedic surgery right foot has 14 screws and 3 plates. Family History Mother Breast cancer Cancer Legacy family hx; cancer Father Myocardial infarction Heart disease Grandparent Breast cancer Daughter Crohn's disease Legacy FamHx Relation: Daughter(s) Social History Smoking Status: Never smoker Tobacco Type: smokeless tobacco Substance Use Type: None Meds Medications & Allergies Allergies latex Allergy (Mild, Verified 11/20/23 18:45) Rash vancomycin Allergy (Unknown, Verified 11/20/23 18:45) Rash haloperidol [From Haldol] Adverse Reaction (Verified 11/20/23 18:45) Anxiety Home Medications atorvastatin 20 mg tablet (Lipitor) 20 mg PO QAM 07/15/18 [History Confirmed 11/20/23] fenofibrate nanocrystallized 145 mg tablet (Tricor) 145 mg PO QAM 04/29/20 [History Confirmed 11/20/23] levothyroxine 100 mcg tablet (Synthroid) 100 mcg PO DAILY.AC.BKFAST 04/29/20 [History Confirmed 11/20/23] carvedilol 25 mg tablet 6.25 mg PO BID 07/29/22 [History Confirmed 11/20/23] insulin regular hum U-500 conc 500 unit/mL(3 mL) subcut pen (Humulin R U-500 (Conc) Insulin Kwikpen) 50 unit subcut BID 07/29/22 [History Confirmed 11/20/23] anastrozole 1 mg tablet 1 mg PO QAM 09/16/23 [History Confirmed 11/20/23] calcitriol 0.25 mcg capsule 0.25 mcg PO DAILY with dialysis 09/16/23 [History Confirmed 11/20/23] furosemide 40 mg tablet (Lasix) 80 mg PO BID 09/16/23 [History Confirmed 11/20/23] testosterone 1 % (50 mg/5 gram) transdermal gel packet 1 packet transdermal DAILY 09/16/23 [History Confirmed 11/20/23] calcium acetate(phosphat bind) 667 mg capsule 2,668 mg PO QAC 10/06/23 [History Confirmed 11/20/23] tirzepatide 5 mg/0.5 mL subcutaneous pen injector (Mounjaro) 5 mg subcut QWEEK 10/06/23 [History Confirmed 11/20/23] cyanocobalamin (vitamin B-12) 1,000 mcg tablet (Vitamin B-12) 1,000 mcg PO DAILY10/18/23 [History Confirmed 11/20/23] pregabalin 150 mg capsule 150 mg PO BID neuropathy pain 10/18/23 [History Confirmed 11/20/23] trazodone 50 mg tablet 50 mg PO QHS PRN insomnia 10/18/23 [History Confirmed 11/20/23] Active Medications: Active Medications Acetaminophen (Acetaminophen 325 Mg Tablet) 650 mg PO Q6HR PRN PRN Reason: Pain Scale 1 - 3 or fever Stop: 11/19/24 21:02 Anastrozole (Anastrozole 1 Mg Tablet) 1 mg PO QAM [facility] Stop: 11/20/24 08:59 Last Admin: 11/21/23 08:00 Dose: 1 mg Atorvastatin Calcium (Atorvastatin 20 Mg Tablet) 20 mg PO QAM [facility] Stop: 11/20/24 08:59 Last Admin: 11/21/23 08:00 Dose: 20 mg Calcitriol (Calcitriol 0.25 Mcg Capsule) 0.25 mcg PO TuThSa@0900 [facility] Stop: 11/22/24 08:59 Calcium Acetate (Calcium Acetate 667 Mg Capsule) 2,668 mg PO AC [facility] Stop: 11/20/24 07:29 Last Admin: 11/21/23 07:54 Dose: 2,668 mg Cyanocobalamin (Cyanocobalamin 1,000 Mcg Tablet) 1,000 mcg PO DAILY [facility] Stop: 11/20/24 08:59 Last Admin: 11/21/23 08:00 Dose: 1,000 mcg Heparin Sodium (Porcine) (Heparin 5,000 Unit/Ml Vial) 5,000 unit SUBCUT Q12HR [facility] Stop: 11/20/24 08:59 Last Admin: 11/21/23 08:00 Dose: 5,000 unit Linezolid (Zyvox) 600 mg in 300 mls @ 300 mls/hr IV Q12H [facility] Last Admin: 11/21/23 09:06 Dose: 300 mls/hr Ceftriaxone Sodium (Rocephin) 2 gm in 50 mls @ 100 mls/hr IV Q24H [facility] Insulin Human Regular (Insulin Regular U-500, Human 1,500 Unit/3 Ml Insuln.Pen) 50 unit SUBCUT BID [facility] Stop: 11/20/24 08:59 Last Admin: 11/21/23 08:00 Dose: 50 unit Levothyroxine Sodium (Levothyroxine 100 Mcg Tablet) 100 mcg PO DAILY.0630 [facility] Stop: 11/20/24 06:29 Last Admin: 11/21/23 05:39 Dose: 100 mcg Melatonin (Melatonin 5 Mg Tablet) 5 mg PO QHS PRN PRN Reason: Insomnia Stop: 11/19/24 21:02 Morphine Sulfate (Morphine Sulfate 2 Mg/Ml Vial) 2 mg IV-PUSH Q4H PRN PRN Reason: Pain Scale 8 - 10 Last Admin: 11/21/23 00:25 Dose: 2 mg Testosterone 1 % (50 Mg/5 Gram) Gel In Packet 1 packet TRANSDERML DAILY [facility] Stop: 11/20/24 08:59 Tirzepatide [ Mounjaro] 5 Mg/0.5 Ml Pen Injector 5 mg SUBCUT Tu@0900 [facility] Stop: 11/29/24 08:59 Ondansetron HCl (Ondansetron 4 Mg/2 Ml Vial) 4 mg IV-PUSH Q8H PRN PRN Reason: Nausea And Vomiting Stop: 11/19/24 21:02 Pregabalin (Pregabalin 150 Mg Capsule) 150 mg PO BID [facility] Stop: 05/19/24 08:59 Last Admin: 11/21/23 08:00 Dose: 150 mg Sodium Chloride (Sodium Chloride 0.9 % 10 Ml Syringe) 0 ml IV-PUSH PRN PRN PRN Reason: Flush Stop: 11/19/24 18:43 Last Admin: 11/20/23 19:10 Dose: 10 ml Trazodone HCl (Trazodone 50 Mg Tablet) 50 mg PO QHS PRN PRN Reason: insomnia Stop: 11/19/24 22:31 Exam Physical Exam Vital Signs: Temp Pulse Resp BP Pulse Ox O2 Del Method 98.4 F 82 16 137/74 97 Room Air 11/21/23 07:48 11/21/23 07:48 11/21/23 07:48 11/21/23 07:48 11/21/23 07:48 11/21/23 07:50 Narrative: General: No acute distress Head :atraumatic normocephalic Eyes: PERRLA. Neck: no JVD no bruit. Heart: S1-S2. RRR Respiratory: Clear to auscultation. No wheezing. No crackles Abdomen: Soft, positive bowel sounds,no tenderness. Neurology: Awake alert oriented x3. No focal deficits Extremity. No cyanosis. Trace edema of lower extremities Skin: No skin rash Results - Nephrology Labs 11/21/23 05:37 11/21/23 05:37 Labs: 11/20/23 11/21/23 19:00 05:37 BUN 32 H 40 H Creatinine 6.29 H 7.37 H D Albumin 4.4 Radiology Impressions Impressions - last 24 hours: Impressions Chest X-Ray 11/20/23 18:55 IMPRESSION: No acute cardiopulmonary pathology. Impression dictated by: Taqueria Reese M.D.11/21/2023 8:08 AM Dictation Location: [place] [address] Any impression(s) listed above is documentation that was entered by the reading physician into a diagnostic report(s) for Evans Forte. I have reviewed the report(s) and am incorporating any findings in the treatment plan of this patient where applicable. 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 Patient has been going to [facility] for hemodialysis. Last hemodialysis session was yesterday (2) Hyperparathyroidism: Plan: Patient on calcitriol for secondary hypothyroidism (3) Anemia of renal disease: Plan: Hemoglobin is at target for end-stage renal disease. (4) Sepsis: Plan: Patient presented with low blood pressure, fever, leukocytosis. Patient was resuscitated with IV fluid and started on wide spectrum antibiotic concerning for central line related bacteremia. Blood culture is negative so far. Patientcurrently on ceftriaxone and Zyvox as the patient has allergy to vancomycin. Patient also has a right foot sole wound and follows with wound clinic Plan * No need for hemodialysis session today. Next hemodialysis session will be Wednesday * Continue wide spectrum antibiotics. Follow blood cultures. Other source of infection could be right foot osteomyelitis. If blood pressure remains negative patient might need right foot MRI rule out osteomyelitis. * Continue PhosLo with meals and calcitriol for secondary hyperparathyroidism * Check CBC and renal function panel before hemodialysis session to adjust order as needed Documented By: Yocasta Villalba MD 11/21/23 1009 Signed By: <Electronically signed by Yocasta Villalba MD> 11/21/23 1016 [facility] Work Phone: Consult note Author Chintan Hernández [facility] November 22, 2023 11:26am Note Date/Time November 22, 2023 11: 26am [facility] [address] [place] [address] Infect. Disease Consult Note Signed Patient: Evans Forte MR#: [id number] : 1970 Acct:[id number] Age/Sex: 53 / M Adm Date: 4 Loc: Room: [address] [place] [address] Type: ADM IN Attending Dr: Amy Escudero DO Copies to: DO Chintan Dhillon MD Yazid Hussein, DO~ HPI Data of Consult Consult date: 11/22/23 Requesting Physician: Amy Escudero DO Primary Care Provider: Idania Ricketts DO Consult Narrative History of present illness: Mr. Forte is a 53 year old male who had HD on Sat and went home and developedfevers/chills with associated nausea. Has had current HD catheter about 1 monthas his left wrist AVF matures. Was on PD. Also with chronic R foot ulcer with increased pain/erythema of RLE. Bcx to date are negative. On linezolid and ceftriaxone. CC: Amy Escudero, Review of Systems Review of Systems All other systems reviewed & are negative unless noted below or in HPI [facility] Medical History (Updated 11/22/23 @ 11:24 by Chintan Hernández MD) Hypertension Hyperlipidemia End stage renal disease Dependence on renal dialysis Anemia Insulin long-term use Chronic kidney disease, stage 4 (severe) Sleep apnea no machine Pancreatitis Hypothyroid Hyperlipidemia Anemia Dependence on renal dialysis End stage renal disease PD catheter dysfunction Cellulitis Hypertension Neuropathy slim feet-tingling Renal insufficiency Diabetes mellitus, type 2 Surgical History History of cardiac catheter[place] [facility] History of orthopedic surgery right foot has 14 screws and 3 plates. Family History Mother Breast cancer Cancer Legacy family hx; cancer Father Myocardial infarction Heart disease Grandparent Breast cancer Daughter Crohn's disease Legacy FamHx Relation: Daughter(s) Social History Smoking Status: Never smoker Tobacco Type: smokeless tobacco Substance Use Type: None Allergies and Medications Allergies and Active Meds Allergies latex Allergy (Mild, Verified 11/20/23 18:45) Rash vancomycin Allergy (Unknown, Verified 11/20/23 18:45) Rash haloperidol [From Haldol] Adverse Reaction (Verified 11/20/23 18:45) Anxiety Active Medications Acetaminophen (Acetaminophen 325 Mg Tablet) 650 mg PO Q6HR PRN PRN Reason: Pain Scale 1 - 3 or fever Stop: 11/19/24 21:02 Anastrozole (Anastrozole 1 Mg Tablet) 1 mg PO QAM [facility] Stop: 11/20/24 08:59 Last Admin: 11/22/23 08:14 Dose: 1 mg Atorvastatin Calcium (Atorvastatin 20 Mg Tablet) 20 mg PO QAM [facility] Stop: 11/20/24 08:59 Last Admin: 11/22/23 08:13 Dose: 20 mg Calcitriol (Calcitriol 0.25 Mcg Capsule) 0.25 mcg PO TuThSa@0900 [facility] Stop: 11/22/24 08:59 Calcium Acetate (Calcium Acetate 667 Mg Capsule) 2,668 mg PO AC [facility] Stop: 11/20/24 07:29 Last Admin: 11/22/23 08:13 Dose: 2,668 mg Cyanocobalamin (Cyanocobalamin 1,000 Mcg Tablet) 1,000 mcg PO DAILY [facility] Stop: 11/20/24 08:59 Last Admin: 11/22/23 08:13 Dose: 1,000 mcg Heparin Sodium (Porcine) (Heparin 5,000 Unit/Ml Vial) 5,000 unit SUBCUT Q12HR [facility] Stop: 11/20/24 08:59 Last Admin: 11/22/23 08:14 Dose: 5,000 unit Linezolid (Zyvox) 600 mg in 300 mls @ 300 mls/hr IV Q12H [facility] Last Admin: 11/22/23 08:58 Dose: 300 mls/hr Ceftriaxone Sodium (Rocephin) 2 gm in 50 mls @ 100 mls/hr IV Q24H [facility] Last Admin: 11/21/23 19:41 Dose: 100 mls/hr Insulin Aspart (Insulin Aspart 300 Units/3 Ml Insuln.Pen) 0 units SUBCUT ACHS [facility]; Protocol Stop: 11/20/24 16:29 Last Admin: 11/22/23 08:13 Dose: Not Given Insulin Human Regular (Insulin Regular U-500, Human 1,500 Unit/3 Ml Insuln.Pen) 50 unit SUBCUT BID [facility] Stop: 11/20/24 08:59 Last Admin: 11/22/23 08:16 Dose: 50 unit Levothyroxine Sodium (Levothyroxine 100 Mcg Tablet) 100 mcg PO DAILY.0630 [facility] Stop: 11/20/24 06:29 Last Admin: 11/22/23 05:29 Dose: 100 mcg Melatonin (Melatonin 5 Mg Tablet) 5 mg PO QHS PRN PRN Reason: Insomnia Stop: 11/19/24 21:02 Morphine Sulfate (Morphine Sulfate 2 Mg/Ml Vial) 2 mg IV-PUSH Q4H PRN PRN Reason: Pain Scale 8 - 10 Last Admin: 11/21/23 19:41 Dose: 2 mg Testosterone 1 % (50 Mg/5 Gram) Gel In Packet 1 packet TRANSDERML DAILY [facility] Stop: 11/20/24 08:59 Last Admin: 11/21/23 10:14 Dose: Not Given Tirzepatide [ Mounjaro] 5 Mg/0.5 Ml Pen Injector 5 mg SUBCUT Tu@0900 [facility] Stop: 11/29/24 08:59 Ondansetron HCl (Ondansetron 4 Mg/2 Ml Vial) 4 mg IV-PUSH Q8H PRN PRN Reason: Nausea And Vomiting Stop: 11/19/24 21:02 Pregabalin (Pregabalin 150 Mg Capsule) 150 mg PO BID [facility] Stop: 05/19/24 08:59 Last Admin: 11/22/23 08:14 Dose: 150 mg Sodium Chloride (Sodium Chloride 0.9 % 10 Ml Syringe) 0 ml IV-PUSH PRN PRN PRN Reason: Flush Stop: 11/19/24 18:43 Last Admin: 11/21/23 11:14 Dose: 10 ml Tramadol HCl (Tramadol 50 Mg Tablet) 50 mg PO Q12H PRN PRN Reason: Pain Stop: 05/19/24 15:16 Trazodone HCl (Trazodone 50 Mg Tablet) 50 mg PO QHS PRN PRN Reason: insomnia Stop: 11/19/24 22:31 Last Admin: 11/21/23 21:19 Dose: 50 mg Exam Physical Exam Vital Signs: Vital Signs Temp Pulse Resp BP Pulse Ox O2 Del Method 11/22/23 11:18 70 18 169/98 H 99 Room Air 11/22/23 07:43 Room Air 11/22/23 07:41 97.8 F 70 18 116/65 95 Room Air 11/22/23 04:00 98.3 F 79 17 147/72 H 96 Room Air 11/22/23 04:00 Room Air 11/21/23 23:58 97.9 F 74 18 130/70 96 Room Air 11/21/23 19:58 97.9 F 74 18 177/92 H 97 Room Air 11/21/23 19:56 Room Air 11/21/23 16:00 98.1 F 78 16 160/88 H 98 Room Air Intake and Output 11/21/23 11/22/23 11/22/23 23:59 07:59 15:59 Intake Total 300 / 850 Output Total 100 / 100 Balance 200 / 750 Intake: IV 300 / 600 Linezolid 600 mg 600 mg In 300 300 / 600 ml @ 300 mls/hr IV Q12H [facility] Rx# :[id number] Output: Urine 100 / 100 Other: # Unmeasured Voids 1 Weight 325 lb 6.436 oz Date of Last Bowel Movement 11/20/23 11/20/23 Patient Weight 11/22/23 23:59 Weight 325 lb 6.436 oz Const General: cooperative, comfortable and no acute distress Orientation: oriented x3 HEENT Head: normal to inspection Mouth: oral mucosae normal Eyes General: appearance normal, both eyes and all related structures Neck Neck: normal visual inspection Chest Chest palpation & inspection: abnormal inspection of the chest (R chest wall HD catheter non tender; exit site WNL) Resp Effort & Inspection: normal respiratory effort Cardio Palpation: normal PMI Rate: regular rate Rhythm: regular rhythm GI Inspection: normal to inspection Palpation: soft Auscultation: normal bowel sounds Skin Lesions: lesion noted and other (multiple scabs on LLE) Other: RLE edema with mild erythema of RLE; R foot ulcer wrapped with clean/gauze dressing. Documented R plantar and heel wounds Extrem General: abnormal to inspection Results - Infectious Disease Labs 11/22/23 06:16 11/22/23 06:16 Labs: 11/22/23 06:16: Corrected WBC 8.8, Uncorrected WBC Count 8.8, BUN 62 H, Creatinine 9.33 H D Microbiology Results Microbiology Narrative: 11/21/23 10:56 Urine Culture - Preliminary Urine - Clean-Voided Midstream No Growth 1 Day 11/20/23 19:19 Blood Culture - Preliminary Blood - Right Antecubital No Growth 1 Day 11/20/23 19:00 Blood Culture - Preliminary Blood - Right Hand No Growth 1 Day 11/20/23 19:04 Respiratory Panel (PCR) - Final Nasopharyngeal Imaging and Cardiology Status: report viewed by me Results Comments: Foot xray: IMPRESSION: No acute bony injury. No osteolytic or bony destructive process. Diffuse soft tissue swelling is noted suggesting cellulitis. A&P - Infectious Disease (1) Fever: (2) Leukocytosis: (3) Wound of right foot: (4) Dependence on renal dialysis: (5) Edema of right lower extremity: Plan To date cultures no growth. Resolved leukocytosis. Afebrile. HD cath exit site looks good. Given R foot wounds and mild erythema perhaps source is from this site. At thistime as long as blood cultures are negative plan to keep HD catheter. Linezolid and ceftriaxone to continue. Documented By: Chintan Hernández MD 11/22/23 1117 Signed By: <Electronically signed by MD Chintan Hernández> 11/22/23 1126 [facility] Work Phone: Consult note Author Gi Mondragon [facility] November 23, 2023 3:51pm Note Date/Time November 22, 2023 5:3 0pm [facility] [address] [place], [place] [id number] Podiatry Consult Note Signed Patient: Evans Forte MR#: [id number] : 1970 Acct:[id number] Age/Sex: 53 / M Adm Date: 4 Loc: Room: [address] [place] [address] Type: ADM IN Attending Dr: mAy Escudero DO Copies to: DO Gi Dhillon DPM Yazid Hussein, DO~ HPI Data of Consult Consult Date: 11/22/23 Requesting Physician: Amy Escudero DO Primary Care Provider: Idania Ricketts DO Consult Narrative Reason for consult: Right foot and heel ulceration History of present illness: Mr. Forte is a 53 year old male who was admitted due to symptoms of sepsis. Patient has a large ulceration on the bottom of the right great toe and heel. He has been following with a community support associate and family. Patient states that the ulcerations are keeping him from being able to have a kidney transplant. He started to notice some redness along the right ritter and there was concern for cellulitis. Patient then started to develop some symptoms with nausea and vomiting which prompted him to come to the emergency room. Podiatry is consulted for evaluation of the ulcerations to the right foot. He currently denies any pain related to the ulcerations. Review of Systems Review of Systems All other systems reviewed & are negative unless noted below or in HPI [facility] Medical History (Updated 11/23/23 @ 10:16 by Gi Mondragon DPM) Feeling anxious COVID-19 Chronic kidney disease Hypertensive chronic kidney disease with stage 1 through stage 4 chronic kidney disease, or unspecified chronic kidney disease Chronic kidney disease with end stage renal disease on dialysis due to type 2 diabetes mellitus Acute kidney injury superimposed on CKD Leukocytosis Hypertension Hyperlipidemia End stage renal disease Dependence on renal dialysis Anemia Insulin long-term use Sleep apnea no machine Pancreatitis Hypothyroid Hyperlipidemia Anemia End stage renal disease Cellulitis Hypertension Neuropathy slim feet-tingling Diabetes mellitus, type 2 Surgical History History of cardiac catheter[place] [facility] History of orthopedic surgery right foot has 14 screws and 3 plates. Family History Mother Breast cancer Cancer Legacy family hx; cancer Father Myocardial infarction Heart disease Grandparent Breast cancer Daughter Crohn's disease Legacy FamHx Relation: Daughter(s) Social History Smoking Status: Never smoker Tobacco Type: smokeless tobacco Substance Use Type: None Meds Medications and Allergies Allergies latex Allergy (Mild, Verified 11/20/23 18:45) Rash vancomycin Allergy (Unknown, Verified 11/20/23 18:45) Rash haloperidol [From Haldol] Adverse Reaction (Verified 11/20/23 18:45) Anxiety Home Medications atorvastatin 20 mg tablet (Lipitor) 20 mg PO QAM 07/15/18 [History Confirmed 11/20/23] fenofibrate nanocrystallized 145 mg tablet (Tricor) 145 mg PO QAM 04/29/20 [History Confirmed 11/20/23] levothyroxine 100 mcg tablet (Synthroid) 100 mcg PO DAILY.AC.BKFAST 04/29/20 [History Confirmed 11/20/23] carvedilol 25 mg tablet 6.25 mg PO BID 07/29/22 [History Confirmed 11/20/23] insulin regular hum U-500 conc 500 unit/mL(3 mL) subcut pen (Humulin R U-500 (Conc) Insulin Kwikpen) 50 unit subcut BID 07/29/22 [History Confirmed 11/20/23] anastrozole 1 mg tablet 1 mg PO QAM 09/16/23 [History Confirmed 11/20/23] calcitriol 0.25 mcg capsule 0.25 mcg PO DAILY with dialysis 09/16/23 [History Confirmed 11/20/23] furosemide 40 mg tablet (Lasix) 80 mg PO BID 09/16/23 [History Confirmed 11/20/23] testosterone 1 % (50 mg/5 gram) transdermal gel packet 1 packet transdermal DAILY 09/16/23 [History Confirmed 11/20/23] calcium acetate(phosphat bind) 667 mg capsule 2,668 mg PO QAC 10/06/23 [History Confirmed 11/20/23] tirzepatide 5 mg/0.5 mL subcutaneous pen injector (Mounjaro) 5 mg subcut QWEEK 10/06/23 [History Confirmed 11/20/23] cyanocobalamin (vitamin B-12) 1,000 mcg tablet (Vitamin B-12) 1,000 mcg PO DAILY10/18/23 [History Confirmed 11/20/23] pregabalin 150 mg capsule 150 mg PO BID neuropathy pain 10/18/23 [History Confirmed 11/20/23] trazodone 50 mg tablet 50 mg PO QHS PRN insomnia 10/18/23 [History Confirmed 11/20/23] linezolid 600 mg tablet 600 mg PO BID 10 days #20 tabs 11/23/23 [Rx] Exam Physical Exam Vital Signs: Temp Pulse Resp BP Pulse Ox O2 Del Method 98.1 F 70 18 154/75 H 98 Room Air 11/22/23 16:00 11/22/23 16:00 11/22/23 16:00 11/22/23 16:00 11/22/23 16:00 11/22/23 16:00 Narrative: General: Patient is seen at bedside and is awake and aware and in no acute distress. He maintained a conversation on the phone during the entirety of my visit. Vascular: DP and PT pulses are palpable to the right lower extremity. There is evidence of cellulitis along the anterior right ritter but There is no evidence of erythema or cellulitis around the ulcerations to the right foot. Neurology: Patient has a diabetic peripheral neuropathy with autonomic, sensory and motor components. Dermatology: Patient has a small ulceration approximately 1 and 1.5 cm long plantar sub-first MPJ right. There is a granular base with no evidence of active pustular drainage, no malodor noted. There is no surrounding cellulitis or erythema noted. Surrounding hyperkeratosis noted due to pressure. Large ulceration along the plantar medial aspect of the right heel proximately 6 7 cm in length x 4 cm in width. Again ulceration is very superficial with granular base. Significant amount of surrounding hyperkeratosis was debrided. There is no evidence of cellulitis, malodor or active drainage noted to the left heel. No areas of the deep probing or palpation down to bone noted to either ulceration site. Radiographs: There is no evidence of the cortical erosions or bone changes to the first metatarsal or medial heel. Patient does have a significant amount of hardware present within the right foot from prior Charcot reconstruction along the medial column as well as screws present along the posterior heel. Results - Podiatry Labs 11/23/23 06:19 11/23/23 06:19 ESR 66 mm/hr (0-19) H 11/20/23 19:00 Hemoglobin A1c 5.6 % (4.3-5.6) 11/21/23 05:37 Microbiology Microbiology: Microbiology - Results from entire visit 11/21/23 10:56 Urine - Clean-Voided Midstream Urine Culture - Preliminary No Growth 1 Day 11/20/23 19:19 Blood - Right Antecubital Blood Culture - Preliminary No Growth 1 Day 11/20/23 19:00 Blood - Right Hand Blood Culture - Preliminary No Growth 1 Day 11/20/23 19:04 Nasopharyngeal Respiratory Panel (PCR) - Final Assessment/Plan (1) Ulcer of right foot: Plan: Ulcerations to the right foot were evaluated. ulcers appear very healthy with no evidence of deep opening, pustular drainage, malodor or other signs of infection. There is a large amount of surrounding hyperkeratosis due to weightbearing and pressure. Discussed with the patient that we can order MRI to ensure that there is no bone infection, but clinically the feet look good but he does need to reduce pressure in order to obtain healing. Patient is in agreement with the plan to r/o the foot as the cause for infection. Cultures have been taken. MRi will be ordered and we will follow up after MRI to determine next plan of care. Qualifiers: Non-pressure ulcer stage: limited to breakdown of skin Qualified Code(s): L97.511 - Non-pressure chronic ulcer of other part of right foot limited to breakdown of skin Code(s): L97.519 - Non-pressure chronic ulcer of other part of right foot with unspecified severity (2) Ulcer of right heel: Plan: Ulcerations to the right foot were evaluated. ulcers appear very healthy with no evidence of deep opening, pustular drainage, malodor or other signs of infection. There is a large amount of surrounding hyperkeratosis due to weightbearing and pressure. Discussed with the patient that we can order MRI to ensure that there is no bone infection, but clinically the feet look good but he does need to reduce pressure in order to obtain healing. Patient is in agreement with the plan to r/o the foot as the cause for infection. Cultures have been taken. MRi will be ordered and we will follow up after MRI to determine next plan of care. Qualifiers: Non-pressure ulcer stage: with fat layer exposed Qualified Code(s): L97.412 - Non-pressure chronic ulcer of right heel and midfoot with fat layer exposed Code(s): L97.419 - Non-pressure chronic ulcer of right heel and midfoot with unspecified severity Documented By: Gi Mondragon DPM 11/22/23 1 730 Signed By: <Electronically signed by TIARA Mondragon> 11/23/23 1551 [facility] Work Phone: Discharge summary Author Chintan Brewster [facility] November 07, 2022 4:43pm Note Date/Time November 07, 2022 4:43 pm [facility] [address] [place] [address] Discharge Summary Signed Patient: Evans Forte MR#: [id number] : 1970 Acct:[id number] Age/Sex: 52 / M Adm Date: 3 Loc: Room: [address] [place] [address]: Chintan Brewster DO Copies to: DO Chintan Dhillon, ~ Providers Date of Discharge: 11/07/22 Discharging Provider: Chintan Brewster Primary Care Provider: Idania Ricketts Consults: 11/04/22 18:48 Consult to Nephrology Routine 11/05/22 11:30 Consult to General Surgery Routine Discharge Diagnosis (1) CKD (chronic kidney disease) stage 5, GFR less than 15 ml/min: (2) Insulin dependent diabetes mellitus: (3) Hypertensive chronic kidney disease with stage 1 through stage 4 chronic kidney disease, or unspecified chronic kidney disease: (4) Hyperkalemia: (5) Metabolic acidosis: Final Diagnosis Final Discharge Diagnosis: In addition to the above diagnoses: 6. Anxiety 7. Insomnia Summary Hospital Course Hospital course: This patient is a 52-year-old male who presented to the emergency department on 11/04/2022 with a chief complaint of abnormal labs chiefly hyperkalemia of 5.9 noted as an outpatient. His potassium was 5.3 on repeat draw in the ER. Bicarbonate was low at 17.3. He was admitted for further evaluation and treatment and nephrology consultation. The patient was treated with Lokelma andLasix and potassium level eventually normalized. Somewhat elevated on day of discharge however improved down to 4.4 after receiving multiple doses of Lokelma. Nephrology and general surgery were both consulted. He was taken for peritoneal dialysis catheter placement on 11/06/2022. Patient will initiate outpatient training for this and eventual initiation of peritoneal dialysis in the upcoming weeks. The patient describes significant anxiety and insomnia eversince retiring 2 years ago. He did receive intermittent benzodiazepine for thishowever I counseled him on the longer-term treatments of anxiety which would likely include an SSRI or other antidepressant medication. For his insomnia he did respond well to 50 mg of nightly trazodone which I feel is appropriate for him now given his severe lack of sleep he reports. He does desire to follow-up with psychiatry as well as obtain a sleep study which I encouraged him to followthrough with both of these. He is provided with prescriptions for Lokelma, Lasix, sodium bicarbonate, increased dose of hydralazine and trazodone on discharge. Physical Examination: GENERAL APPEARANCE: Alert, up in bed AAOx3 HEENT: NCAT, MMM NECK: Neck soft w/o masses, no JVD CARDIAC: Normal S1 and S2. No S3, S4 or murmurs. LUNGS: Clear to auscultation bilaterally. no wheeze/rhonchi/rales ABDOMEN: Positive bowel sounds. Soft, nontender. No guarding or signs of an acute abdomen MUSCULOSKELETAL: No joint erythema or tenderness. EXTREMITIES: No clubbing, cyanosis.? 1+ pitting edema bilateral lower extremities. PSYCHIATRIC: Appropriate mood and affect 35 minutes were spent coordinating the discharge of this patient. Time Spent with Patient Time spent providing/coordinating discharge services (# min): 35 Surgeries and Procedures Operation Date: 11/06/22 13:40 Actual Procedures p OR PD Catheter Dialysis Insert Laparoscopic(Not Applicable) - Flakito High, DO Diagnostic Studies Completed and Pending Studies Pending studies at discharge: 11/08/22 05:00 Basic Metabolic Panel [CHEM] IN AM Complete Blood Count Auto Diff IN AM Labs on day of discharge: 11/07/22 14:51: PHA Creatinine Clear 19.91, Sodium 135 L, Potassium 4.4 D, Chloride 109, Carbon Dioxide 16.2 L, Anion Gap 14.2, BUN 73 H, Creatinine 6.66 H, Est GFR ( Amer) 11, Est GFR (Non-Af Amer) 9, Glucose 239 H D, Calcium 8.2, Phosphorus 4.2, Albumin 2.9 L 11/07/22 12:53: Potassium 11/07/22 11:27: POC Glucose 230, POC Glucose Comment Glu2: cleaned meter 11/07/22 07:04: POC Glucose 283, POC Glucose Comment Glu2: cleaned meter 11/07/22 04:37: PHA Creatinine Clear 19.89, Sodium 134 L, Potassium 6.0 H, Chloride 110, Carbon Dioxide 17.1 L, Anion Gap 12.9, BUN 69 H, Creatinine 6.67 H, Est GFR ( Amer) 11, Est GFR (Non-Af Amer) 9, Glucose 340 H D, Calcium 8.3 11/07/22 04:37: Corrected WBC 12.4 H, Uncorrected WBC Count 12.4 H, RBC 2.97 L, Hgb 8.8 L, Hct 27.0 L, MCV 90.8, MCH 29.7, MCHC 32.7, RDW 14.2, Plt Count 399, MPV 7.1, Neut % (Auto) 87.5, Lymph % (Auto) 5.8, Addison % (Auto) 6.5, Eos % (Auto) 0.1, Baso % (Auto) 0.1, Nucleat RBC Rel Count 0.1, Neut # (Auto) 10.9 H, Lymph # (Auto) 0.7 L, Addison # (Auto) 0.8, Eos # (Auto) 0.0, Baso # (Auto) 0.0 11/07/22 01:35: POC Glucose 419 H*, POC Glucose Comment 11/07/22 01:33: POC Glucose 445 H*, POC Glucose Comment Will repeat test 11/06/22 21:30: POC Glucose 383 Exam Physical Exam Vital Signs: Temp Pulse Resp BP Pulse Ox O2 Del Method O2 Flow Rate 97.8 F 86 16 162/75 H 96 Room Air 3 11/07/22 16:00 11/07/22 16:00 11/07/22 16:00 11/07/22 16:00 11/07/22 16:00 11/07/22 16:00 11/06/22 14:55 Discharge Plan Discharge Plan Patient Disposition: Home Additional Instructions: DISCHARGE INSTRUCTIONS FOR GENERAL SURGERY YOUR ACTIVITY MAY INCLUDE: -Going up and down stairs slowly. -Walking around the house or outside if the weather is satisfactory. -No driving until you are seen in office and cleared for driving. -Light housework or light work permitted in 2 weeks. -Heavy lifting permitted 2 weeks At your first office visit we will discuss: Return to work, return to sports, return to exercise, etc. WOUND CARE/INCISION CARE: -Keep incision clean and dry -Sponge bathe only first week then showers ok -Is it common to feel pulling or sharp sticking sensations in the area of incision, these sensations are a part of the normal healing process. -If you develop fever, increasing pain, redness, or swelling around the incision, please notify our office MEDICATION -Resume all previous medications that you were taking for problems unrelated to your surgery, unless informed otherwise. If there are any problems with this, please call the original prescribing doctor. If you have any other questions regarding medications, please call our office. -Over the counter medications such as Acetaminophen, Ibuprofen, Naproxen, and others may be used as directed for pain unless a prescription was provided. 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 High in the office in 1 week Prescriptions: New trazodone 50 mg Tablet 50 mg PO QHS 30 Days Qty: 30 0RF sodium bicarbonate 650 mg Tablet 1,300 mg PO BID 30 Days Qty: 120 0RF hydralazine 50 mg Tablet 100 mg PO TID 30 Days Qty: 180 0RF Lokelma 10 gram Powder In Packet 10 g PO DAILY 30 Days Qty: 30 0RF Continued atorvastatin [Lipitor] 20 mg Tablet 20 mg PO DAILY ferrous sulfate [iron] 325 mg (65 mg iron) Tablet 325 mg PO DAILY pregabalin [Lyrica] 50 mg capsule 50 mg PO DAILY Patient Comments: take 1 capsule by mouth once daily nifedipine 90 mg tablet extended release 90 mg PO DAILY furosemide [Lasix] 40 mg tablet 40 mg PO DAILY 30 Days Qty: 30 0RF cholecalciferol (vitamin D3) [Vitamin D3] 2,000 unit Capsule 2,000 unit PO DAILY levothyroxine [Synthroid] 100 mcg tablet 100 mcg PO DAILY.AC.BKFAST fenofibrate nanocrystallized [Tricor] 145 mg tablet 145 mg PO DAILY carvedilol 25 mg tablet 25 mg PO BID vitamin A 2,400 mcg Capsule 2,400 mcg PO DAILY zinc acetate 25 mg (zinc) Capsule 25 mg PO DAILY Vitamin C 100 mg Tablet 100 mg PO DAILY vitamin B complex Tablet 1 tab PO DAILY Humulin R U-500 (Conc) Kwikpen 500 unit/mL (3 mL) insulin pen 70 unit SUBCUT QAM Humulin R U-500 (Conc) Kwikpen 500 unit/mL (3 mL) insulin pen 45 unit SUBCUT DAILY Rx Instructions: afternoon Discontinued hydralazine 25 mg tablet 25 mg PO BID Other Ambulatory Orders: Renal Function Panel (Routine) Timeframe: 20221111 Location: Determined by Patient Ordered By: Chintan JARQUIN Home Medical Equipment (Routine) Timeframe: 1 Day Location: Determined by Patient Ordered By: Chintan Brewster Follow Up: [facility] [Outside] - 11/12/22 10:30 am (Please keep your previously scheduled follow up appointments. 11/12/22 at 10:30am 11/20/22 at 10:30am) Flakito High DO [Active Staff - D.O.] - (Call office on Wednesday to schedule follow-up with Dr. High) Idania Ricketts DO [Primary Care Provider] - 11/16/22 10:00 am [facility] call office to reschedule if needed. ) Documented By: Chintan Brewster DO 11/07/22 16 39 Signed By: <Electronically signed by Chintan Brewster DO> 11/07/22 4452 [facility] Work Phone: Discharge summary Author Amy Escudero [facility] November 24, 2023 1:40pm Note Date/Time November 23, 2023 5:0 1pm [facility] [address] [place] [address] Discharge Summary Signed Patient: Evans Forte MR#: [id number] : 1970 Acct:[id number] Age/Sex: 53 / M Adm Date: 4 Loc: Room: [address] [place] [address]: Amy Escudero DO Copies to: DO Shannon Dhillon APRN Yazid Hussein, DO~ Providers Date of Discharge: 11/23/23 Discharging Provider: Shannon Allen Primary Care Provider: Idania Ricketts Consults: 11/20/23 21:03 Consult to Nephrology Routine Comment: Consulting Provider: Yocasta Villalba Has Provider Been Notified: Yes Date of Notification: 11/21/23 Time of Notification: 07:22 Reason for Consult: Dialysis Treatment 11/20/23 22:26 Consult to Dietitian Routine Comment: Reason for Consult: Non-Healing Wound/s 11/21/23 15:15 Consult to Podiatry Routine Comment: Consulting Provider: Bijan Vu Reason For Exam: right foot chronic wounds, DM Has Provider Been Notified: Yes Date of Notification: 11/21/23 Time of Notification: 15:41 11/21/23 15:18 Consult to Infectious Diseases Routine Comment: Consulting Provider: Chintan Hernández Reason For Exam: sepsis, foot wounds, HD cath Has Provider Been Notified: Yes Date of Notification: 11/21/23 Time of Notification: 15:42 Discharge Diagnosis (1) Ulcer of right foot: (2) Ulcer of right heel: (3) Cellulitis of right foot: Final Diagnosis Final Discharge Diagnosis: As noted above Summary Hospital Course Hospital course: Mr Forte is a 53-year-old male who with a past medical history of hypertension, hyperlipidemia, ESRD on dialysis T--, diabetic and insulin-dependent, GUSTAVO,and neuropathy, chronic right foot ulcer who presented to the ED with complaintsof nausea and diaphoresis after dialysis. Also reported increased pain and redness of right lower extremity. Upon arrival to the ER he was found to have leukocytosis with a white count of 19.5 and hypotensive at 96/56. In the ED right foot x-ray was suggestive of cellulitis with no acute bony injury. He wasstarted on ceftriaxone and linezolid and podiatry and infectious disease were consulted. He was seen and evaluated by podiatry yesterday with debridement of ulceration yesterday with no further need for surgical intervention. He was recommended tocontinue with antibiotics for cellulitis. He was also seen and managed by infectious disease who continued him on antibiotics as he thought that his systemic symptoms were likely due to cellulitis. There was no redness or drainage from his HD catheter site. MRI of the right foot demonstrated mild cellulitis without any findings of osteomyelitis. Blood cultures did not show any growth to date, leukocytosis completely resolved and he remained afebrile for the duration of his hospital stay. He was transitioned to oral Zyvox by infectious disease upon discharge. He was cleared for discharge by podiatry and recommended to continue current wound care and will follow-up with his community support associate and primary care physician outpatient. Time Spent with Patient Time spent providing/coordinating discharge services (# min): 40 Diagnostic Studies Completed and Pending Studies Pending studies at discharge: 11/20/23 19:19 Blood Culture Stat 11/24/23 05:00 Basic Metabolic Panel [CHEM] IN AM Complete Blood Count Auto Diff IN AM Magnesium [CHEM] IN AM 11/25/23 05:00 Basic Metabolic Panel [CHEM] IN AM Complete Blood Count Auto Diff IN AM Magnesium [CHEM] IN AM Preliminary micro results at discharge 11/20/23 19:19 Blood Culture - Preliminary Blood - Right Antecubital No Growth 2 Days 11/20/23 19:00 Blood Culture - Preliminary Blood - Right Hand No Growth 2 Days Labs on day of discharge: 11/23/23 15:07: POC Glucose 123 11/23/23 06:19: Corrected WBC 7.7, Uncorrected WBC Count 7.7, RBC 3.73 L, Hgb 11.3 L, Hct 35.2 L, MCV 94.5, MCH 30.4, MCHC 32.2 L, RDW 15.7 H, Plt Count 248, MPV 8.3, Neut % (Auto) 63.3, Lymph % (Auto) 20.6, Addison % (Auto) 9.8, Eos % (Auto) 5.6, Baso % (Auto) 0.7, Nucleat RBC Rel Count 0.0, Neut # (Auto) 4.9, Lymph # (Auto) 1.6, Addison # (Auto) 0.8, Eos # (Auto) 0.4, Baso # (Auto) 0.1, PHA Creatinine Clear 13.08, Sodium 139, Potassium 4.5, Chloride 102, Carbon Dioxide 25.0, Anion Gap 16.5 H, BUN 74 H, Creatinine 10.07 H D, Est GFR (CKD-EPI) 5.666, Glucose 94, Calcium 9.3, Magnesium 2.7 11/22/23 16:44: POC Glucose 136 Exam Physical Exam Vital Signs: Temp Pulse Resp BP Pulse Ox O2 Del Method 98 F 77 18 172/79 H 98 Room Air 11/23/23 14:47 11/23/23 14:47 11/23/23 14:47 11/23/23 14:47 11/23/23 14:47 11/23/23 14:47 Narrative: CONST-alert, awake resting comfortably in bed CARDIAC-normal rate, regular rhythm, normal S1 & S2. PULM-diminished without wheeze or rhonchi, RA, no accessory muscle use or cough noted ABD - Soft. Bowel sounds are normal. No distention No tenderness EXTREM-no edema BLE calves nontender SKIN-erythema to right lower extremity. Dressing intact to right foot Discharge Plan Discharge Plan Patient Disposition: Home Health Services Activity: Other Comment: Off loading on right foot Diet: Diabetic Additional Instructions: Continue Hemodialysis as scheduled. Please call to schedule an appointment with your established [employer]. HOME HEALTH TO MANAGE: Nursing to eval and treat Monitor VS per protocol Monitor for increased signs of infection Monitor Skin assessment Assist with medication management Assist with glucose control Daily wound care to right plantar foot and right heel ulcer: *Soak with Vashe. Silvasorb gel to the wound bed. Top with Adaptic and 4x4 gauze. *Secure with Kerlix and paper tape. Maintain and routine care to your Hemodialysis cath. Prescriptions: New linezolid 600 mg tablet 600 mg PO BID 10 Days Qty: 20 0RF tramadol 50 mg Tablet 50 mg PO Q12H PRN (Reason: Pain) 7 Days Qty: 14 0RF Continued atorvastatin [Lipitor] 20 mg Tablet 20 mg PO QAM calcium acetate(phosphat bind) 667 mg capsule 2,668 mg PO QAC Mounjaro 5 mg/0.5 mL pen injector 5 mg SUBCUT QWEEK Patient Comments: EVERY WEDNESDAY PER PT levothyroxine [Synthroid] 100 mcg tablet 100 mcg PO DAILY.AC.BKFAST fenofibrate nanocrystallized [Tricor] 145 mg tablet 145 mg PO QAM carvedilol 25 mg tablet 6.25 mg PO BID Humulin R U-500 (Conc) Kwikpen 500 unit/mL (3 mL) insulin pen 50 unit SUBCUT BID anastrozole 1 mg tablet 1 mg PO QAM Patient Comments: take 1 tablet by mouth every morning (SWALLOW WHOLE WITH A DRINK OF WATER) calcitriol 0.25 mcg capsule 0.25 mcg PO DAILY Patient Comments: take 1 capsule by mouth three times a week furosemide [Lasix] 40 mg tablet 80 mg PO BID testosterone 1 % (50 mg/5 gram) Gel In Packet 1 packet TRANSDERMAL DAILY pregabalin 150 mg capsule 150 mg PO BID Rx Instructions: FreeTextSi capsule Orally bid; Note: Source Status: Taking; Refills: 4; Qty: 60 Capsule; Provider: Marcia Segura trazodone 50 mg Tablet 50 mg PO QHS PRN (Reason: insomnia) cyanocobalamin (vitamin B-12) [Vitamin B-12] 1,000 mcg tablet 1,000 mcg PO DAILY Follow Up: Idania Ricketts DO [Primary Care Provider] - (Her office is currently closed. Please call to schedule a 5 day post hospital appointment. ) Documented By: Shannon Allen APRN 11/23/23 1647 Signed By: <Electronically signed by HARSH Allen> 11/23/23 1736 <Electronically signed by Amy Escudero DO> 11/24/23 1340 [facility] Work Phone: Evaluation + Plan note No data available for this section [facility] Evaluation noteNo InformationNort [employer] Other Evaluation noteNo assessment information available [facility] Work Phone: Evaluation note* Diagnosis Onset Date Resolution Status Acute hyperkalemia acute Chronic kidney disease acute Hypertension acute [facility] Work Phone: Evaluation note* Diagnosis Onset Date Resolution Status Acute hyperkalemia acute Acute kidney injury superimposed on CKD acute Chronic kidney disease acute CKD (chronic kidney disease) stage 5, GFR less than 15 ml/min acute Hyperkalemia acute Hypertension acute Insulin dependent diabetes mellitus acute Metabolic acidosis acute [id number] chronic [id number] chronic [facility] Work Phone: Evaluation note* Diagnosis Onset Date Resolution Status [id number] chronic [facility] Work Phone: evaluation note* Diagnosis Peritoneal dialysis catheter dysfunction, subsequent encounter ([facility])- Primary documented in this encounter [facility] HealthcareEvaluation note* Diagnosis Onset Date Resolution Status [id number] chronic Dependence on renal dialysis acute [facility] Work Phone: evaluation note* Diagnosis Onset Date Resolution Status Anemia of renal disease acut e Benign hypertension with end-stage renal disease acute Diabetes acute [id number] acute [id number] acute Edema of right lower extremity acute End stage renal disease acut e Fever acute Hyperparathyroidism acute Hypertension acute Hypomagnesemia acute Insulin dependent diabetes mellitus acute Sepsis acute SIRS (systemic inflammatory response syndrome) acute Type 2 diabetes mellitus wit h diabetic chronic kidney disease acute Ulcer of right foot acute Ulcer of right heel acute Vomiting acute Wound of right foot acute [facility] Work Phone: Evaluation note* Diagnosis Onset Date Resolution Status Edema of right lower extremity acute Fever resolved Hypomagnesemia resolved Sepsis resolved SIRS (systemic inflammatory response syndrome) resolved Vomiting resolved [facility] Work Phone: evaluation note* Diagnosis Onset Date Resolution Status Edema of right lower extremity acute Fever resolved Hypomagnesemia resolved Sepsis resolved SIRS (systemic inflammatory response syndrome) resolved Vomiting resolved AV fistula acute End stage renal disease acut e ESRD on hemodialysis acute [facility] Work Phone: Evaluation note* Diagnosis Onset Date Resolution Status Benign hypertension with end-stage renal disease acute Edema of right lower extremity acute Type 2 diabetes mellitus wit h diabetic chronic kidney disease acute Fever resolved Hypomagnesemia resolved Sepsis resolved SIRS (systemic inflammatory response syndrome) resolved Vomiting resolved AV fistula acute End stage renal disease acut e ESRD on hemodialysis acute [facility] Work Phone: evaluation note* Diagnosis Onset Date Resolution Status Benign hypertension with end-stage renal disease acute Edema of right lower extremity acute Type 2 diabetes mellitus wit h diabetic chronic kidney disease acute Fever resolved Hypomagnesemia resolved Sepsis resolved SIRS (systemic inflammatory response syndrome) resolved Vomiting resolved AV fistula acute End stage renal disease acut e ESRD on hemodialysis acute ESRD on hemodialysis acute [facility] Work Phone: Evaluation note* Diagnosis Ulcer of right heel and midfoot with fat layer exposed (CMS/HCC)- Primary Type 2 diabetes mellitus with peripheral neuropathy (CMS/HCC) Neuropathy Mononeuritis of unspecified site documented in this encounter [facility] HealthcareEvaluation note* Diagnosis Obstructive sleep apnea syndrome- Primary Obstructive sleep apnea (adult) (pediatric) Type 2 diabetes with nephropathy (CMS/HCC) Type 2 diabetes mellitus with peripheral neuropathy (CMS/HCC) 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, with long-term current use of insulin (CMS/HCC) Long-term insulin use (CMS/HCC) 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 (CMS/HCC) Essential hypertension (CMS/HCC) Unspecified essential hypertension Peripheral vascular disease (CMS/HCC) Unspecified peripheral vascular disease End stage renal disease (CMS/HCC) End stage renal disease Type 2 diabetes mellitus with ESRD (end-stage renal disease) (CMS/HCC) Acquired hypothyroidism (CMS/HCC) Unspecified hypothyroidism Dependence on renal dialysis (CMS/HCC) Renal dialysis status Pure hypercholesterolemia (CMS/HCC) Pure hypercholesterolemia Chronic maxillary sinusitis Class 3 severe obesity due to excess calories with serious comorbidity and body mass index (BMI) of 45.0 to 49.9 in adult (CMS/HCC) Adrenal nodule (CMS/HCC) Benign neoplasm of adrenal gland Anxiety Anxiety state, unspecified Hx of amputation of lesser toe, left ([facility]) (CMS/HCC) Obstructive sleep apnea syndrome- Primary Obstructive sleep apnea (adult) (pediatric) Primary insomnia Persistent disorder of initiating or maintaining sleep 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 (CMS/HCC) Type 2 diabetes mellitus with peripheral neuropathy (CMS/HCC) Essential hypertension (CMS/HCC) Unspecified essential hypertension Peripheral vascular disease (CMS/HCC) Unspecified peripheral vascular disease End stage renal disease (CMS/HCC) End stage renal disease Acquired hypothyroidism (CMS/HCC) Unspecified hypothyroidism Type 2 diabetes mellitus with ESRD (end-stage renal disease) (CMS/HCC) 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, with long-term current use of insulin (CMS/HCC) Chronic kidney disease with end stage renal disease on dialysis due to type 2 diabetes mellitus (CMS/[facility]) Dependence on renal dialysis ([facility]) Renal dialysis status Anxiety Anxiety state, unspecified Pure hypercholesterolemia (CMS/[facility]) Pure hypercholesterolemia Long-term insulin use (CMS/[facility]) Hx of amputation of lesser toe, left (HCC) ([facility]) Other iron deficiency anemia 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 classified elsewhere ([facility]) Non-pressure chronic ulcer of other part of right foot with unspecified severity ([facility]) Type 2 diabetes mellitus with foot ulcer, with long-term current use of insulin ([facility]) Class 3 severe obesity due to excess calories with serious comorbidity and body mass index (BMI) of 40.0 to 44.9 in adult ([facility]) Type 2 diabetes mellitus with peripheral neuropathy ([facility])- Primary Anxiety Anxiety state, unspecified Ulcer of right heel and midfoot with fat layer exposed ([facility])- Primary Ulcer of right foot, limited to breakdown of skin ([facility]) Type 2 diabetes mellitus with peripheral neuropathy ([facility]) Neuropathy Mononeuritis of unspecified site Type 2 diabetes mellitus with foot ulcer, with long-term current use of insulin ([facility]) documented in this encounter [facility] HealthcareEvaluation note* Diagnosis Obstructive sleep apnea syndrome- Primary Obstructive sleep apnea (adult) (pediatric) Type 2 diabetes with nephropathy ([facility]) Type 2 diabetes mellitus with peripheral neuropathy ([facility]) 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, with long-term current use of insulin ([facility]) Long-term insulin use ([facility] 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 ([facility] Essential hypertension ([facility] Unspecified essential hypertension Peripheral vascular disease ([facility]) Unspecified peripheral vascular disease End stage renal disease ([facility]) End stage renal disease Type 2 diabetes mellitus with ESRD (end-stage renal disease) (CMS/[facility]) Acquired hypothyroidism ([facility]) Unspecified hypothyroidism Dependence on renal dialysis ([facility]) Renal dialysis status Pure hypercholesterolemia ([facility]) Pure hypercholesterolemia Chronic maxillary sinusitis Class 3 severe obesity due to excess calories with serious comorbidity and body mass index (BMI) of 45.0 to 49.9 in adult ([facility]) Adrenal nodule ([facility]) Benign neoplasm of adrenal gland Anxiety Anxiety state, unspecified Hx of amputation of lesser toe, left (HCC) ([facility]) Obstructive sleep apnea syndrome- Primary Obstructive sleep apnea (adult) (pediatric) Primary insomnia Persistent disorder of initiating or maintaining sleep 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 ([facility]) Type 2 diabetes mellitus with peripheral neuropathy ([facility]) Essential hypertension ([facility] Unspecified essential hypertension Peripheral vascular disease ([facility] Unspecified peripheral vascular disease End stage renal disease ([facility]) End stage renal disease Acquired hypothyroidism ([facility]) Unspecified hypothyroidism Type 2 diabetes mellitus with ESRD (end-stage renal disease) ([facility]) 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, with long-term current use of insulin ([facility]) Chronic kidney disease with end stage renal disease on dialysis due to type 2 diabetes mellitus ([facility]) Dependence on renal dialysis ([facility]) Renal dialysis status Anxiety Anxiety state, unspecified Pure hypercholesterolemia ([facility]) Pure hypercholesterolemia Long-term insulin use ([facility]) Hx of amputation of lesser toe, left (HCC) ([facility]) Other iron deficiency anemia 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 classified elsewhere ([facility]) Non-pressure chronic ulcer of other part of right foot with unspecified severity ([facility]) Type 2 diabetes mellitus with foot ulcer, with long-term current use of insulin ([facility]) Class 3 severe obesity due to excess calories with serious comorbidity and body mass index (BMI) of 40.0 to 44.9 in adult ([facility]) Type 2 diabetes mellitus with peripheral neuropathy ([facility])- Primary Anxiety Anxiety state, unspecified Obstructive sleep apnea syndrome- Primary Obstructive sleep apnea (adult) (pediatric) 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 ([facility]) Type 2 diabetes mellitus with peripheral neuropathy ([facility]) Essential hypertension ([facility] Unspecified essential hypertension Peripheral vascular disease ([facility]) Unspecified peripheral vascular disease End stage renal disease ([facility]) End stage renal disease Acquired hypothyroidism ([facility]) Unspecified hypothyroidism Type 2 diabetes mellitus with ESRD (end-stage renal disease) ([facility]) 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, with long-term current use of insulin ([facility]) Chronic kidney disease with end stage renal disease on dialysis due to type 2 diabetes mellitus ([facility]) Anxiety Anxiety state, unspecified Dependence on renal dialysis ([facility]) Renal dialysis status Pure hypercholesterolemia ([facility]) Pure hypercholesterolemia Long-term insulin use ([facility]) Hx of amputation of lesser toe, left (HCC) ([facility]) Class 3 severe obesity due to excess calories with serious comorbidity and body mass index (BMI) of 40.0 to 44.9 in adult ([facility]) Inguinal adenopathy Enlargement of lymph nodes documented in this encounter [facility]* Diagnosis Ulcer of right heel and midfoot with fat layer exposed ([facility])- Primary Neuropathy Mononeuritis of unspecified site Ulcer of right foot, limited to breakdown of skin ([facility]) Type 2 diabetes mellitus with peripheral neuropathy ([facility]) documented in this encounter [facility]* Diagnosis 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 ([facility]) documented in this encounter [facility]* Diagnosis Ulcer of right heel and midfoot with fat layer exposed ([facility])- Primary Ulcer of right foot, limited to breakdown of skin ([facility]) documented in this encounter [facility]* Diagnosis Type 2 diabetes mellitus with peripheral neuropathy ([facility])- Primary Anxiety Anxiety state, unspecified documented in this encounter [facility]* Diagnosis Neuropathy- Primary Mononeuritis of unspecified site Type 2 diabetes mellitus with peripheral neuropathy ([facility]) documented in this encounter [facility]* Diagnosis Obstructive sleep apnea syndrome- Primary Obstructive sleep apnea (adult) (pediatric) Type 2 diabetes with nephropathy ([facility]) Type 2 diabetes mellitus with peripheral neuropathy ([facility]) 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, with long-term current use of insulin ([facility]) Long-term insulin use ([facility] 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 ([facility] Essential hypertension ([facility]) Unspecified essential hypertension Peripheral vascular disease ([facility]) Unspecified peripheral vascular disease End stage renal disease ([facility]) End stage renal disease Type 2 diabetes mellitus with ESRD (end-stage renal disease) ([facility]) Acquired hypothyroidism ([facility]) Unspecified hypothyroidism Dependence on renal dialysis ([facility]) Renal dialysis status Pure hypercholesterolemia ([facility]) Pure hypercholesterolemia Chronic maxillary sinusitis Class 3 severe obesity due to excess calories with serious comorbidity and body mass index (BMI) of 45.0 to 49.9 in adult ([facility]) Adrenal nodule ([facility]) Benign neoplasm of adrenal gland Anxiety Anxiety state, unspecified Hx of amputation of lesser toe, left (HCC) ([facility]) Obstructive sleep apnea syndrome- Primary Obstructive sleep apnea (adult) (pediatric) Primary insomnia Persistent disorder of initiating or maintaining sleep 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 ([facility]) Type 2 diabetes mellitus with peripheral neuropathy ([facility]) Essential hypertension ([facility] Unspecified essential hypertension Peripheral vascular disease ([facility]) Unspecified peripheral vascular disease End stage renal disease ([facility]) End stage renal disease Acquired hypothyroidism ([facility]) Unspecified hypothyroidism Type 2 diabetes mellitus with ESRD (end-stage renal disease) ([facility]) 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, with long-term current use of insulin ([facility]) Chronic kidney disease with end stage renal disease on dialysis due to type 2 diabetes mellitus ([facility]) Dependence on renal dialysis ([facility]) Renal dialysis status Anxiety Anxiety state, unspecified Pure hypercholesterolemia ([facility]) Pure hypercholesterolemia Long-term insulin use ([facility]) Hx of amputation of lesser toe, left (HCC) ([facility]) Other iron deficiency anemia 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 classified elsewhere ([facility]) Non-pressure chronic ulcer of other part of right foot with unspecified severity ([facility]) Type 2 diabetes mellitus with foot ulcer, with long-term current use of insulin ([facility]) Class 3 severe obesity due to excess calories with serious comorbidity and body mass index (BMI) of 40.0 to 44.9 in adult ([facility]) Type 2 diabetes mellitus with peripheral neuropathy ([facility])- Primary Anxiety Anxiety state, unspecified Obstructive sleep apnea syndrome- Primary Obstructive sleep apnea (adult) (pediatric) 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 ([facility]) Type 2 diabetes mellitus with peripheral neuropathy ([facility]) Essential hypertension ([facility]) Unspecified essential hypertension Peripheral vascular disease ([facility]/HCC) Unspecified peripheral vascular disease End stage renal disease ([facility]) End stage renal disease Acquired hypothyroidism ([facility]) Unspecified hypothyroidism Type 2 diabetes mellitus with ESRD (end-stage renal disease) ([facility]) 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, with long-term current use of insulin ([facility]) Chronic kidney disease with end stage renal disease on dialysis due to type 2 diabetes mellitus ([facility]) Anxiety Anxiety state, unspecified Dependence on renal dialysis ([facility]) Renal dialysis status Pure hypercholesterolemia ([facility]) Pure hypercholesterolemia Long-term insulin use ([facility]) Hx of amputation of lesser toe, left (HCC) ([facility]) Class 3 severe obesity due to excess calories with serious comorbidity and body mass index (BMI) of 40.0 to 44.9 in adult ([facility]) Inguinal adenopathy Enlargement of lymph nodes Chronic venous insufficiency- Primary Unspecified venous (peripheral) insufficiency Lymphedema Other noninfectious lymphedema documented in this encounter [facility]* Diagnosis Obstructive sleep apnea syndrome- Primary Obstructive sleep apnea (adult) (pediatric) Type 2 diabetes with nephropathy ([facility]) Type 2 diabetes mellitus with peripheral neuropathy ([facility]) 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, with long-term current use of insulin ([facility]) Long-term insulin use ([facility] 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 ([facility] Essential hypertension ([facility]) Unspecified essential hypertension Peripheral vascular disease ([facility]) Unspecified peripheral vascular disease End stage renal disease ([facility]) End stage renal disease Type 2 diabetes mellitus with ESRD (end-stage renal disease) ([facility]) Acquired hypothyroidism ([facility]) Unspecified hypothyroidism Dependence on renal dialysis ([facility]) Renal dialysis status Pure hypercholesterolemia ([facility]) Pure hypercholesterolemia Chronic maxillary sinusitis Class 3 severe obesity due to excess calories with serious comorbidity and body mass index (BMI) of 45.0 to 49.9 in adult ([facility]) Adrenal nodule ([facility]) Benign neoplasm of adrenal gland Anxiety Anxiety state, unspecified Hx of amputation of lesser toe, left (HCC) ([facility]) Obstructive sleep apnea syndrome- Primary Obstructive sleep apnea (adult) (pediatric) Primary insomnia Persistent disorder of initiating or maintaining sleep 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 ([facility]) Type 2 diabetes mellitus with peripheral neuropathy ([facility]) Essential hypertension ([facility] Unspecified essential hypertension Peripheral vascular disease ([facility] Unspecified peripheral vascular disease End stage renal disease ([facility] End stage renal disease Acquired hypothyroidism ([facility]) Unspecified hypothyroidism Type 2 diabetes mellitus with ESRD (end-stage renal disease) ([facility]) 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, with long-term current use of insulin ([facility]) Chronic kidney disease with end stage renal disease on dialysis due to type 2 diabetes mellitus ([facility]) Dependence on renal dialysis ([facility]) Renal dialysis status Anxiety Anxiety state, unspecified Pure hypercholesterolemia ([facility]) Pure hypercholesterolemia Long-term insulin use ([facility]) Hx of amputation of lesser toe, left ([facility]) ([facility]) Other iron deficiency anemia 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 classified elsewhere ([facility]) Non-pressure chronic ulcer of other part of right foot with unspecified severity ([facility]) Type 2 diabetes mellitus with foot ulcer, with long-term current use of insulin ([facility]) Class 3 severe obesity due to excess calories with serious comorbidity and body mass index (BMI) of 40.0 to 44.9 in adult ([facility]) Type 2 diabetes mellitus with peripheral neuropathy ([facility])- Primary Anxiety Anxiety state, unspecified Obstructive sleep apnea syndrome- Primary Obstructive sleep apnea (adult) (pediatric) 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 ([facility]) Type 2 diabetes mellitus with peripheral neuropathy ([facility] Essential hypertension ([facility] [facility] Unspecified essential hypertension Peripheral vascular disease ([facility]) Unspecified peripheral vascular disease End stage renal disease ([facility] End stage renal disease Acquired hypothyroidism ([facility]) Unspecified hypothyroidism Type 2 diabetes mellitus with ESRD (end-stage renal disease) ([facility]) 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, with long-term current use of insulin ([facility]) Chronic kidney disease with end stage renal disease on dialysis due to type 2 diabetes mellitus ([facility]) Anxiety Anxiety state, unspecified Dependence on renal dialysis ([facility]) Renal dialysis status Pure hypercholesterolemia ([facility]) Pure hypercholesterolemia Long-term insulin use ([facility]) Hx of amputation of lesser toe, left (HCC) (CMS/HCC) Class 3 severe obesity due to excess calories with serious comorbidity and body mass index (BMI) of 40.0 to 44.9 in adult (CMS/HCC) Inguinal adenopathy Enlargement of lymph nodes Ulcer of right heel and midfoot with fat layer exposed (CMS/HCC)- Primary Ulcer of right foot, limited to breakdown of skin (CMS/HCC) Type 2 diabetes mellitus with peripheral neuropathy ([facility]/HCC) Neuropathy Mononeuritis of unspecified site documented in this encounter [facility] HealthcareEvaluation note* Diagnosis Obstructive sleep apnea syndrome- Primary Obstructive sleep apnea (adult) (pediatric) Type 2 diabetes with nephropathy (CMS/HCC) Type 2 diabetes mellitus with peripheral neuropathy ([facility]) 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, with long-term current use of insulin (CMS/HCC) Long-term insulin use ([facility]) 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 ([facility]) Essential hypertension ([facility]) Unspecified essential hypertension Peripheral vascular disease ([facility]/HCC) Unspecified peripheral vascular disease End stage renal disease (CMS/HCC) End stage renal disease Type 2 diabetes mellitus with ESRD (end-stage renal disease) ([facility]/HCC) Acquired hypothyroidism (CMS/[facility]) Unspecified hypothyroidism Dependence on renal dialysis ([facility]) Renal dialysis status Pure hypercholesterolemia (CMS/HCC) Pure hypercholesterolemia Chronic maxillary sinusitis Class 3 severe obesity due to excess calories with serious comorbidity and body mass index (BMI) of 45.0 to 49.9 in adult ([facility]/HCC) Adrenal nodule (CMS/HCC) Benign neoplasm of adrenal gland Anxiety Anxiety state, unspecified Hx of amputation of lesser toe, left (HCC) ([facility]/HCC) Obstructive sleep apnea syndrome- Primary Obstructive sleep apnea (adult) (pediatric) Primary insomnia Persistent disorder of initiating or maintaining sleep 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 (CMS/HCC) Type 2 diabetes mellitus with peripheral neuropathy (CMS/HCC) Essential hypertension (CMS/HCC) Unspecified essential hypertension Peripheral vascular disease (CMS/HCC) Unspecified peripheral vascular disease End stage renal disease (CMS/HCC) End stage renal disease Acquired hypothyroidism (CMS/HCC) Unspecified hypothyroidism Type 2 diabetes mellitus with ESRD (end-stage renal disease) ([facility]) 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, with long-term current use of insulin ([facility]) Chronic kidney disease with end stage renal disease on dialysis due to type 2 diabetes mellitus ([facility]) Dependence on renal dialysis ([facility]) Renal dialysis status Anxiety Anxiety state, unspecified Pure hypercholesterolemia ([facility]) Pure hypercholesterolemia Long-term insulin use ([facility]) Hx of amputation of lesser toe, left (HCC) ([facility]) Other iron deficiency anemia 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 classified elsewhere ([facility]) Non-pressure chronic ulcer of other part of right foot with unspecified severity ([facility]) Type 2 diabetes mellitus with foot ulcer, with long-term current use of insulin ([facility]) Class 3 severe obesity due to excess calories with serious comorbidity and body mass index (BMI) of 40.0 to 44.9 in adult ([facility]) Type 2 diabetes mellitus with peripheral neuropathy ([facility])- Primary Anxiety Anxiety state, unspecified Obstructive sleep apnea syndrome- Primary Obstructive sleep apnea (adult) (pediatric) 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 ([facility]) Type 2 diabetes mellitus with peripheral neuropathy ([facility]) Essential hypertension ([facility] Unspecified essential hypertension Peripheral vascular disease ([facility] Unspecified peripheral vascular disease End stage renal disease ([facility]) End stage renal disease Acquired hypothyroidism ([facility]) Unspecified hypothyroidism Type 2 diabetes mellitus with ESRD (end-stage renal disease) ([facility]) 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, with long-term current use of insulin ([facility]) Chronic kidney disease with end stage renal disease on dialysis due to type 2 diabetes mellitus ([facility]) Anxiety Anxiety state, unspecified Dependence on renal dialysis ([facility]) Renal dialysis status Pure hypercholesterolemia ([facility]) Pure hypercholesterolemia Long-term insulin use ([facility]) Hx of amputation of lesser toe, left (HCC) ([facility]) Class 3 severe obesity due to excess calories with serious comorbidity and body mass index (BMI) of 40.0 to 44.9 in adult ([facility]) Inguinal adenopathy Enlargement of lymph nodes Lymphedema- Primary Other noninfectious lymphedema End stage renal disease ([facility]) End stage renal disease Venous stasis dermatitis documented in this encounter [facility] HealthcareEvaluation note* Diagnosis Obstructive sleep apnea syndrome- Primary Obstructive sleep apnea (adult) (pediatric) Type 2 diabetes with nephropathy (CMS/HCC) Type 2 diabetes mellitus with peripheral neuropathy ([facility]/HCC) 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, with long-term current use of insulin ([facility]/HCC) Long-term insulin use ([facility]) 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 ([facility] Essential hypertension ([facility]) Unspecified essential hypertension Peripheral vascular disease ([facility]) Unspecified peripheral vascular disease End stage renal disease ([facility]) End stage renal disease Type 2 diabetes mellitus with ESRD (end-stage renal disease) ([facility]) Acquired hypothyroidism ([facility]) Unspecified hypothyroidism Dependence on renal dialysis ([facility]) Renal dialysis status Pure hypercholesterolemia ([facility]) Pure hypercholesterolemia Chronic maxillary sinusitis Class 3 severe obesity due to excess calories with serious comorbidity and body mass index (BMI) of 45.0 to 49.9 in adult ([facility]) Adrenal nodule ([facility]) Benign neoplasm of adrenal gland Anxiety Anxiety state, unspecified Hx of amputation of lesser toe, left (HCC) ([facility]) Obstructive sleep apnea syndrome- Primary Obstructive sleep apnea (adult) (pediatric) Primary insomnia Persistent disorder of initiating or maintaining sleep 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 ([facility]/HCC) Type 2 diabetes mellitus with peripheral neuropathy ([facility]) Essential hypertension ([facility]) Unspecified essential hypertension Peripheral vascular disease ([facility] Unspecified peripheral vascular disease End stage renal disease ([facility]) End stage renal disease Acquired hypothyroidism ([facility]) Unspecified hypothyroidism Type 2 diabetes mellitus with ESRD (end-stage renal disease) ([facility]) 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, with long-term current use of insulin ([facility]) Chronic kidney disease with end stage renal disease on dialysis due to type 2 diabetes mellitus ([facility]) Dependence on renal dialysis ([facility]) Renal dialysis status Anxiety Anxiety state, unspecified Pure hypercholesterolemia ([facility]/HCC) Pure hypercholesterolemia Long-term insulin use ([facility]) Hx of amputation of lesser toe, left (HCC) ([facility]) Other iron deficiency anemia 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 classified elsewhere ([facility]) Non-pressure chronic ulcer of other part of right foot with unspecified severity (CMS/HCC) Type 2 diabetes mellitus with foot ulcer, with long-term current use of insulin ([facility]) Class 3 severe obesity due to excess calories with serious comorbidity and body mass index (BMI) of 40.0 to 44.9 in adult ([facility]) Type 2 diabetes mellitus with peripheral neuropathy (CMS/HCC)- Primary Anxiety Anxiety state, unspecified Obstructive sleep apnea syndrome- Primary Obstructive sleep apnea (adult) (pediatric) 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 (CMS/HCC) Type 2 diabetes mellitus with peripheral neuropathy (CMS/HCC) Essential hypertension (CMS/HCC) Unspecified essential hypertension Peripheral vascular disease (CMS/HCC) Unspecified peripheral vascular disease End stage renal disease ([facility]/HCC) End stage renal disease Acquired hypothyroidism ([facility]) Unspecified hypothyroidism Type 2 diabetes mellitus with ESRD (end-stage renal disease) ([facility]) 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, with long-term current use of insulin ([facility]) Chronic kidney disease with end stage renal disease on dialysis due to type 2 diabetes mellitus ([facility]) Anxiety Anxiety state, unspecified Dependence on renal dialysis ([facility]) Renal dialysis status Pure hypercholesterolemia ([facility]) Pure hypercholesterolemia Long-term insulin use ([facility]) Hx of amputation of lesser toe, left ([facility]) ([facility]) Class 3 severe obesity due to excess calories with serious comorbidity and body mass index (BMI) of 40.0 to 44.9 in adult ([facility]) Inguinal adenopathy Enlargement of lymph nodes Bilious vomiting with nausea- Primary Type 2 diabetes mellitus with peripheral neuropathy ([facility]) documented in this encounter [facility] HealthcareEvaluation note* Diagnosis Obstructive sleep apnea syndrome- Primary Obstructive sleep apnea (adult) (pediatric) Type 2 diabetes with nephropathy (CMS/[facility]) Type 2 diabetes mellitus with peripheral neuropathy ([facility]) 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, with long-term current use of insulin ([facility]/HCC) Long-term insulin use ([facility]) 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 (CMS/HCC) Essential hypertension (CMS/HCC) Unspecified essential hypertension Peripheral vascular disease (CMS/HCC) Unspecified peripheral vascular disease End stage renal disease ([facility]) End stage renal disease Type 2 diabetes mellitus with ESRD (end-stage renal disease) ([facility]) Acquired hypothyroidism ([facility]) Unspecified hypothyroidism Dependence on renal dialysis ([facility]) Renal dialysis status Pure hypercholesterolemia ([facility]) Pure hypercholesterolemia Chronic maxillary sinusitis Class 3 severe obesity due to excess calories with serious comorbidity and body mass index (BMI) of 45.0 to 49.9 in adult ([facility]) Adrenal nodule ([facility]) Benign neoplasm of adrenal gland Anxiety Anxiety state, unspecified Hx of amputation of lesser toe, left (HCC) ([facility]) Obstructive sleep apnea syndrome- Primary Obstructive sleep apnea (adult) (pediatric) Primary insomnia Persistent disorder of initiating or maintaining sleep 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 ([facility]) Type 2 diabetes mellitus with peripheral neuropathy ([facility]) Essential hypertension ([facility] Unspecified essential hypertension Peripheral vascular disease ([facility]) Unspecified peripheral vascular disease End stage renal disease ([facility]) End stage renal disease Acquired hypothyroidism ([facility]) Unspecified hypothyroidism Type 2 diabetes mellitus with ESRD (end-stage renal disease) ([facility]) 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, with long-term current use of insulin ([facility]) Chronic kidney disease with end stage renal disease on dialysis due to type 2 diabetes mellitus ([facility]) Dependence on renal dialysis ([facility]) Renal dialysis status Anxiety Anxiety state, unspecified Pure hypercholesterolemia ([facility]) Pure hypercholesterolemia Long-term insulin use ([facility]) Hx of amputation of lesser toe, left (HCC) ([facility]) Other iron deficiency anemia 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 classified elsewhere ([facility]) Non-pressure chronic ulcer of other part of right foot with unspecified severity ([facility]) Type 2 diabetes mellitus with foot ulcer, with long-term current use of insulin ([facility]) Class 3 severe obesity due to excess calories with serious comorbidity and body mass index (BMI) of 40.0 to 44.9 in adult ([facility]) Type 2 diabetes mellitus with peripheral neuropathy ([facility])- Primary Anxiety Anxiety state, unspecified Obstructive sleep apnea syndrome- Primary Obstructive sleep apnea (adult) (pediatric) 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 ([facility]) Type 2 diabetes mellitus with peripheral neuropathy (CMS/HCC) Essential hypertension (CMS/HCC) Unspecified essential hypertension Peripheral vascular disease (CMS/HCC) Unspecified peripheral vascular disease End stage renal disease (CMS/HCC) End stage renal disease Acquired hypothyroidism (CMS/HCC) Unspecified hypothyroidism Type 2 diabetes mellitus with ESRD (end-stage renal disease) (CMS/HCC) 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, with long-term current use of insulin (CMS/HCC) Chronic kidney disease with end stage renal disease on dialysis due to type 2 diabetes mellitus (CMS/[facility]) Anxiety Anxiety state, unspecified Dependence on renal dialysis (CMS/HCC) Renal dialysis status Pure hypercholesterolemia (CMS/HCC) Pure hypercholesterolemia Long-term insulin use (CMS/HCC) Hx of amputation of lesser toe, left ([facility]) ([facility]) Class 3 severe obesity due to excess calories with serious comorbidity and body mass index (BMI) of 40.0 to 44.9 in adult (CMS/[facility]) Inguinal adenopathy Enlargement of lymph nodes Bilious vomiting with nausea- Primary Type 2 diabetes mellitus with peripheral neuropathy (CMS/[facility]) Neuropathy- Primary Mononeuritis of unspecified site Ulcer of right heel and midfoot with fat layer exposed (CMS/[facility]) Ulcer of right foot, limited to breakdown of skin (CMS/[facility]) Type 2 diabetes mellitus with peripheral neuropathy ([facility]) Chronic kidney disease due to diabetes mellitus ([facility]) documented in this encounter [facility] HealthcareEvaluation note* Diagnosis Obstructive sleep apnea syndrome- Primary Obstructive sleep apnea (adult) (pediatric) Type 2 diabetes with nephropathy (CMS/[facility]) Type 2 diabetes mellitus with peripheral neuropathy ([facility]) 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, with long-term current use of insulin (CMS/HCC) Long-term insulin use ([facility]) 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 (CMS/HCC) Essential hypertension (CMS/HCC) Unspecified essential hypertension Peripheral vascular disease (CMS/HCC) Unspecified peripheral vascular disease End stage renal disease (CMS/HCC) End stage renal disease Type 2 diabetes mellitus with ESRD (end-stage renal disease) (CMS/HCC) Acquired hypothyroidism (CMS/HCC) Unspecified hypothyroidism Dependence on renal dialysis (CMS/HCC) Renal dialysis status Pure hypercholesterolemia (CMS/HCC) Pure hypercholesterolemia Chronic maxillary sinusitis Class 3 severe obesity due to excess calories with serious comorbidity and body mass index (BMI) of 45.0 to 49.9 in adult Adrenal nodule ([facility]) Benign neoplasm of adrenal gland Anxiety Anxiety state, unspecified Hx of amputation of lesser toe, left (HCC) ([facility]) Obstructive sleep apnea syndrome- Primary Obstructive sleep apnea (adult) (pediatric) Primary insomnia Persistent disorder of initiating or maintaining sleep 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 ([facility]) Type 2 diabetes mellitus with peripheral neuropathy ([facility]) Essential hypertension ([facility] Unspecified essential hypertension Peripheral vascular disease ([facility]) Unspecified peripheral vascular disease End stage renal disease ([facility]) End stage renal disease Acquired hypothyroidism ([facility]) Unspecified hypothyroidism Type 2 diabetes mellitus with ESRD (end-stage renal disease) ([facility]) 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, with long-term current use of insulin ([facility]) Chronic kidney disease with end stage renal disease on dialysis due to type 2 diabetes mellitus [facility] C[facility]) Dependence on renal dialysis ([facility]) Renal dialysis status Anxiety Anxiety state, unspecified Pure hypercholesterolemia ([facility]) Pure hypercholesterolemia Long-term insulin use ([facility]) Hx of amputation of lesser toe, left (HCC) ([facility]) Other iron deficiency anemia 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 classified elsewhere ([facility]) Non-pressure chronic ulcer of other part of right foot with unspecified severity ([facility]) Type 2 diabetes mellitus with foot ulcer, with long-term current use of insulin ([facility]) Class 3 severe obesity due to excess calories with serious comorbidity and body mass index (BMI) of 40.0 to 44.9 in adult Type 2 diabetes mellitus with peripheral neuropathy ([facility])- Primary Anxiety Anxiety state, unspecified Obstructive sleep apnea syndrome- Primary Obstructive sleep apnea (adult) (pediatric) 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 ([facility]) Type 2 diabetes mellitus with peripheral neuropathy (CMS/HCC) Essential hypertension ([facility]) Unspecified essential hypertension Peripheral vascular disease ([facility]) Unspecified peripheral vascular disease End stage renal disease ([facility]) End stage renal disease Acquired hypothyroidism ([facility]) Unspecified hypothyroidism Type 2 diabetes mellitus with ESRD (end-stage renal disease) ([facility]) 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, with long-term current use of insulin ([facility]) Chronic kidney disease with end stage renal disease on dialysis due to type 2 diabetes mellitus ([facility]) Anxiety Anxiety state, unspecified Dependence on renal dialysis ([facility]) Renal dialysis status Pure hypercholesterolemia ([facility]) Pure hypercholesterolemia Long-term insulin use ([facility]) Hx of amputation of lesser toe, left (HCC) ([facility]) Class 3 severe obesity due to excess calories with serious comorbidity and body mass index (BMI) of 40.0 to 44.9 in adult Inguinal adenopathy Enlargement of lymph nodes Bilious vomiting with nausea- Primary Type 2 diabetes mellitus with peripheral neuropathy ([facility]) 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 ([facility])- Primary Type 2 diabetes mellitus with peripheral neuropathy ([facility]) Obstructive sleep apnea syndrome Obstructive sleep apnea (adult) (pediatric) Essential hypertension ([facility]) Unspecified essential hypertension Peripheral vascular disease ([facility]) Unspecified peripheral vascular disease End stage renal disease ([facility]) End stage renal disease Type 2 diabetes mellitus with foot ulcer, with long-term current use of insulin ([facility]) Acquired hypothyroidism ([facility]) Unspecified hypothyroidism 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, with long-term current use of insulin ([facility]) Class 3 severe obesity due to excess calories with serious comorbidity and body mass index (BMI) of 40.0 to 44.9 in adult Chronic kidney disease with end stage renal disease on dialysis due to type 2 diabetes mellitus ([facility]) Anxiety Anxiety state, unspecified Dependence on renal dialysis ([facility]) Renal dialysis status Pure hypercholesterolemia ([facility]) Pure hypercholesterolemia Long-term insulin use ([facility]) Hx of amputation of lesser toe, left (HCC) ([facility]) documented in this encounter [facility] HealthcareEvaluation note* Diagnosis Idiopathic peripheral neuropathy- Primary Unspecified hereditary and idiopathic peripheral neuropathy End stage renal disease (HCC) End stage renal disease Hyperkalemia Hyperpotassemia Idiopathic peripheral neuropathy Unspecified hereditary and idiopathic peripheral neuropathy [facility] Diagnosis Onset Date Resolution Status Admit Date Diabetic peripheral neuropathy acute February 13, 2025 8:20am Lumbar radiculopathy acute February 13, 2025 8:20am Other chronic pain acute February [id number] 8:20am [facility] Work Phone: Evaluation note* Diagnosis Obstructive sleep apnea syndrome- Primary Obstructive sleep apnea (adult) (pediatric) Type 2 diabetes with nephropathy (HCC) Type 2 diabetes mellitus with peripheral neuropathy (HCC) 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, with long-term current use of insulin (HCC) Long-term insulin use (HCC) 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) Essential hypertension Unspecified essential hypertension Peripheral vascular disease Unspecified peripheral vascular disease End stage renal disease (HCC) End stage renal disease Type 2 diabetes mellitus with ESRD (end-stage renal disease) ([facility]) Acquired hypothyroidism Unspecified hypothyroidism Dependence on renal dialysis Renal dialysis status Pure hypercholesterolemia Pure hypercholesterolemia Chronic maxillary sinusitis Class 3 severe obesity due to excess calories with serious comorbidity and body mass index (BMI) of 45.0 to 49.9 in adult ([facility]) Adrenal nodule (HCC) Benign neoplasm of adrenal gland Anxiety Anxiety state, unspecified Hx of amputation of lesser toe, left ([facility]) Obstructive sleep apnea syndrome- Primary Obstructive sleep apnea (adult) (pediatric) Primary insomnia Persistent disorder of initiating or maintaining sleep 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) Type 2 diabetes mellitus with peripheral neuropathy (HCC) Essential hypertension Unspecified essential hypertension Peripheral vascular disease Unspecified peripheral vascular disease End stage renal disease (HCC) End stage renal disease Acquired hypothyroidism Unspecified hypothyroidism Type 2 diabetes mellitus with ESRD (end-stage renal disease) ([facility]) 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, with long-term current use of insulin (HCC) Chronic kidney disease with end stage renal disease on dialysis due to type 2 diabetes mellitus (HCC) Dependence on renal dialysis Renal dialysis status Anxiety Anxiety state, unspecified Pure hypercholesterolemia Pure hypercholesterolemia Long-term insulin use (HCC) Hx of amputation of lesser toe, left ([facility]CC) Other iron deficiency anemia 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 classified elsewhere ([facility]) Non-pressure chronic ulcer of other part of right foot with unspecified severity ([facility]) Type 2 diabetes mellitus with foot ulcer, with long-term current use of insulin ([facility]) Class 3 severe obesity due to excess calories with serious comorbidity and body mass index (BMI) of 40.0 to 44.9 in adult ([facility]) Type 2 diabetes mellitus with peripheral neuropathy (HCC)- Primary Anxiety Anxiety state, unspecified Obstructive sleep apnea syndrome- Primary Obstructive sleep apnea (adult) (pediatric) 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) Type 2 diabetes mellitus with peripheral neuropathy (HCC) Essential hypertension Unspecified essential hypertension Peripheral vascular disease Unspecified peripheral vascular disease End stage renal disease (HCC) End stage renal disease Acquired hypothyroidism Unspecified hypothyroidism Type 2 diabetes mellitus with ESRD (end-stage renal disease) (HCC) 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, with long-term current use of insulin (HCC) Chronic kidney disease with end stage renal disease on dialysis due to type 2 diabetes mellitus (HCC) Anxiety Anxiety state, unspecified Dependence on renal dialysis Renal dialysis status Pure hypercholesterolemia Pure hypercholesterolemia Long-term insulin use (HCC) Hx of amputation of lesser toe, left ([facility]-H[facility]) Class 3 severe obesity due to excess calories with serious comorbidity and body mass index (BMI) of 40.0 to 44.9 in adult ([facility]) Inguinal adenopathy Enlargement of lymph nodes Bilious vomiting with nausea- Primary Type 2 diabetes mellitus with peripheral neuropathy (HCC) 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)- Primary Type 2 diabetes mellitus with peripheral neuropathy (HCC) Obstructive sleep apnea syndrome Obstructive sleep apnea (adult) (pediatric) Essential hypertension Unspecified essential hypertension Peripheral vascular disease Unspecified peripheral vascular disease End stage renal disease (HCC) End stage renal disease Type 2 diabetes mellitus with foot ulcer, with long-term current use of insulin (HCC) Acquired hypothyroidism Unspecified hypothyroidism 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, with long-term current use of insulin (HCC) Class 3 severe obesity due to excess calories with serious comorbidity and body mass index (BMI) of 40.0 to 44.9 in adult ([facility]) Chronic kidney disease with end stage renal disease on dialysis due to type 2 diabetes mellitus (HCC) Anxiety Anxiety state, unspecified Dependence on renal dialysis Renal dialysis status Pure hypercholesterolemia Pure hypercholesterolemia Long-term insulin use (HCC) Hx of amputation of lesser toe, left ([facility]-HCC) 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) documented in this encounter [facility] HealthcareHistory and physical note Author Chintan Brewster [facility] November 04, 2022 8:11pm Note Date/Time November 04, 2022 8:11 pm [facility] [address] [place] [address] Hospitalist H&P Signed Patient: Evans Forte MR#: [id number] : 1970 Acct:[id number] Age/Sex: 52 / M Adm Date: 3 Loc: ER Room: Type: [facility] ER Attending Dr: Copies to: DO Delano Dhillon MD Michael R. 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 He is in preparation for peritoneal dialysis for his ongoing chronic kidney disease. On arrival to the ER his blood pressure was 226/102, low-grade temperature 99.1 ?F, heart rate of 96 bpm, respiratory rate of 18/min,96% oxygen saturation on room air. CBC revealed leukocytosis of 12.2 and chronic anemia H&H 9.8/30.2%, platelets 418. BUN/creatinine elevated at 52/5.77with a potassium level of 5.3, reported at 5.9 as outpatient. Bicarb is low at 17.3 consistent with baseline CKD. Urinalysis shows occult blood and protein. The patient was admitted to the [facility] floor for further evaluation and treatment after receiving a dose of IV calcium chloride and oral zirconium cyclosilicate. Patient denies any shortness of breath, confusion, nausea or vomiting. He does report some chronic edema in his lower extremities. Physical Examination: GENERAL APPEARANCE: Alert, up in bed AAOx3 HEENT: NCAT, MMM NECK: Neck soft w/o masses, no JVD CARDIAC: Normal S1 and S2. No S3, S4 or murmurs. LUNGS: Clear to auscultation bilaterally. no wheeze/rhonchi/rales ABDOMEN: Positive bowel sounds. Soft, nontender. No guarding or signs of an acute abdomen MUSCULOSKELETAL: No joint erythema or tenderness. EXTREMITIES: No clubbing, cyanosis. 1+ pitting edema bilateral lower extremities. PSYCHIATRIC: Appropriate mood and affect Assessment and plan: 1. Hyperkalemia Mild in nature. Likely due to progression of CKD. Consult nephrology. Monitoron telemetry. Will provide some light IV hydration and Lasix to further protectagainst rising potassium levels. 2. Leukocytosis Mild, also accompanies a mild fever. Monitor for signs of infection. No symptoms of infection presently. 3. Anemia Chronic likely in part due to CKD. 4. Diabetes mellitus, insulin-dependent Continue home insulin regimen. 5. Hypothyroidism Continue home levothyroxine 100 mcg daily. Review of Systems Review of Systems All other systems reviewed & are negative unless noted below or in HPI PMFSH Vaccinated for COVID-19?: Yes Medical History (Updated 11/04/22 @ 17:35 by Delano Mondragon MD) Cellulitis Diabetes mellitus, type 2 Hypertension Neuropathy Renal insufficiency Surgical History History of orthopedic surgery right foot has 14 screws and 3 plates. Family History Other No significant family history Social History Smoking Status: Never smoker Tobacco Type: cigarettes Substance Use Type: None Meds Medications and Allergies Allergies No Known Allergies Allergy (Verified 11/04/22 13:54) Home Medications atorvastatin 20 mg tablet (Lipitor) 20 mg PO DAILY 07/15/18 [History Confirmed 11/04/22] cholecalciferol (vitamin D3) 50 mcg (2,000 unit) capsule (Vitamin D3) 2,000 unitPO DAILY 06/17/19 [History Confirmed 11/04/22] ferrous sulfate 325 mg (65 mg iron) tablet (iron) 325 mg PO DAILY 07/22/19 [History Confirmed 11/04/22] fenofibrate nanocrystallized 145 mg tablet (Tricor) 145 mg PO DAILY 04/29/20 [History Confirmed 11/04/22] furosemide 40 mg tablet (Lasix) 40 mg PO DAILY 04/29/20 [History Confirmed 11/04/22] levothyroxine 100 mcg tablet (Synthroid) 100 mcg PO DAILY.AC.BKFAST 04/29/20 [History Confirmed 11/04/22] ascorbic acid (vitamin C) 100 mg tablet (Vitamin C) 100 mg PO DAILY 07/29/22 [History Confirmed 11/04/22] carvedilol 25 mg tablet 25 mg PO BID 07/29/22 [History Confirmed 11/04/22] hydralazine 25 mg tablet 25 mg PO BID 07/29/22 [History Confirmed 11/04/22] insulin regular hum U-500 conc 500 unit/mL(3 mL) subcut pen (Humulin R U-500 (Conc) Insulin Kwikpen) 45 unit subcut DAILY 07/29/22 [History Confirmed 11/04/22] insulin regular hum U-500 conc 500 unit/mL(3 mL) subcut pen (Humulin R U-500 (Conc) Insulin Kwikpen) 70 unit subcut QAM 07/29/22 [History Confirmed 11/04/22] vitamin A 2,400 mcg capsule 2,400 mcg PO DAILY 07/29/22 [History Confirmed 11/04/22] vitamin B complex 1 tab PO DAILY 07/29/22 [History Confirmed 11/04/22] zinc acetate 25 mg (zinc) capsule 25 mg PO DAILY 07/29/22 [History Confirmed 11/04/22] pregabalin 50 mg capsule (Lyrica) 50 mg PO DAILY 10/10/22 [History Confirmed 11/04/22] nifedipine 90 mg tablet,extended release 90 mg PO DAILY 11/04/22 [History Confirmed 11/04/22] Exam Physical Exam Vital Signs: Temp Pulse Resp BP Pulse Ox O2 Del Method 99.1 F H 83 20 213/97 H 99 Room Air 11/04/22 13:57 11/04/22 19:10 11/04/22 18:12 11/04/22 19:10 11/04/22 18:12 11/04/22 18:12 Results Lab Results Labs: Laboratory Last Values Corrected WBC 12.2 X10E3/uL (4.1-10.5) H 11/04/22 15:11 Uncorrected WBC Count 12.2 x10E3/uL (4.1-10.5) H 11/04/22 15:11 RBC 3.32 X10E6/uL (3.90-5.60) L 11/04/22 15:11 Hgb 9.8 g/dL (13.0-17.0) L 11/04/22 15:11 Hct 30.2 % (38.8-50.0) L 11/04/22 15:11 MCV 90.9 fl (83.5-101) 11/04/22 15:11 MCH 29.6 pg (27.5-35.2) 11/04/22 15:11 MCHC 32.6 g/dL (32.5-35.6) 11/04/22 15:11 RDW 14.5 % (12.0-14.8) 11/04/22 15:11 Plt Count 418 x10E3/uL (150-450) 11/04/22 15:11 MPV 6.7 fl (6.6-10.1) 11/04/22 15:11 Neut % (Auto) 74.8 % (.) 11/04/22 15:11 Lymph % (Auto) 12.4 % (.) 11/04/22 15:11 Addison % (Auto) 9.0 % (.) 11/04/22 15:11 Eos % (Auto) 2.7 % (.) 11/04/22 15:11 Baso % (Auto) 1.1 % (.) 11/04/22 15:11 Nucleat RBC Rel Count 0.0 /100 WBC (0-0.5) 11/04/22 15:11 Neut # (Auto) 9.1 x10E3/uL (1.8-7.7) H 11/04/22 15:11 Lymph # (Auto) 1.5 x10E3/uL (1.00-4.8) 11/04/22 15:11 Addison # (Auto) 1.1 x10E3/uL (0.0-0.8) H 11/04/22 15:11 Eos # (Auto) 0.3 x10E3/uL (0.0-0.45) 11/04/22 15:11 Baso # (Auto) 0.1 x10E3/uL (0.0-0.2) 11/04/22 15:11 Monocyte Dist Width 17.32 % (0.00-20.00) 11/04/22 15:11 PT 12.4 Seconds (9.0-12.9) 11/04/22 15:11 INR 1.1 11/04/22 15:11 APTT 35.0 Seconds (25.1-36.5) 11/04/22 15:11 PHA Creatinine Clear 22.99 11/04/22 15:11 Sodium 138 mmol/L (136-146) 11/04/22 15:11 Potassium 5.3 mmol/L (3.5-5.1) H 11/04/22 15:11 Chloride 112 mmol/L (95-114) 11/04/22 15:11 Carbon Dioxide 17.3 mmol/L (22.0-30.0) L 11/04/22 15:11 Anion Gap 14.0 mEq/L (6.0-15.0) 11/04/22 15:11 BUN 52 mg/dL (9-23) H 11/04/22 15:11 Creatinine 5.77 mg/dL (0.64-1.27) H 11/04/22 15:11 Est GFR ( Amer) 13 mL/Min 11/04/22 15:11 Est GFR (Non-Af Amer) 10 mL/Min 11/04/22 15:11 Glucose 82 mg/dL (70-100) 11/04/22 15:11 Calcium 8.9 mg/dL (8.2-10.2) 11/04/22 15:11 Phosphorus 3.8 mg/dL (2.5-4.6) 11/04/22 15:11 Magnesium 1.6 mg/dL (1.6-2.6) 11/04/22 15:11 Total Bilirubin 0.3 mg/dL (0.3-1.2) 11/04/22 15:11 AST 14 U/L (10-42) 11/04/22 15:11 ALT 23 U/L (10-60) 11/04/22 15:11 Alkaline Phosphatase 59 U/L (32-92) 11/04/22 15:11 Troponin I High Sens 10 pg/mL (0-20) 11/04/22 15:11 B-Natriuretic Peptide 27.0 pg/mL (5-100) 11/04/22 15:11 Total Protein 7.5 gm/dL (6.1-7.9) 11/04/22 15:11 Albumin 3.3 gm/dL (3.2-5.5) 11/04/22 15:11 Globulin 4.2 gm/dL 11/04/22 15:11 Albumin/Globulin Ratio 0.8 11/04/22 15:11 Urine Color Yellow (Yellow) 11/04/22 14:04 Urine Appearance Clear (Clear) 11/04/22 14:04 Urine pH 5.5 (5.0-9.0) 11/04/22 14:04 Ur Specific [place] 1.013 (1.001-1.030) 11/04/22 14:04 Urine Protein 300 mg/dL (Negative) H 11/04/22 14:04 Urine Glucose (UA) 100 mg/dL (Normal) H 11/04/22 14:04 Urine Ketones Negative (Negative) 11/04/22 14:04 Urine Occult Blood 1+ (Negative) H 11/04/22 14:04 Urine Nitrite Negative (Negative) 11/04/22 14:04 Urine Bilirubin Negative (Negative) 11/04/22 14:04 Urine Urobilinogen Normal mg/dL (Normal) 11/04/22 14:04 Ur Leukocyte Esterase Negative (Negative) 11/04/22 14:04 Urine RBC 3-4 /HPF (0-4) 11/04/22 14:04 Urine WBC 1-2 /HPF (0-4) 11/04/22 14:04 Ur Squamous Epith Cells 0-1 /HPF (0-2) 11/04/22 14:04 Urine Bacteria None seen (None Seen) 11/04/22 14:04 Hyaline Casts 0-8 /LPF (0-8) 11/04/22 14:04 Documented By: Chintan Brewster DO 11/04/22 20 07 Signed By: <Electronically signed by Chintan Brewster DO> 11/04/222010 [facility] Work Phone: History and physical note Author Buddy Murguia [facility] November 20, 2023 10:57pm Note Date/Time November 20, 2023 10: 38pm [facility] [address] [place] [address] Hospitalist H&P Signed Patient: Evans Forte MR#: [id number] : 1970 Acct:[id number] Age/Sex: 53 / M Adm Date: 4 Loc: Room: [address] [place] [address] Type: ADM IN Attending Dr: Buddy Murguia DO Copies to: DO Buddy Dhillon DO~ HPI DATE OF EXAMINATION: 11/20/23 CHIEF COMPLAINT: nauseas HISTORY OF PRESENT ILLNESS: Mr Forte is a 53-year-old male who with a past medical history of hypertension, hyperlipidemia, ESRD on dialysis T-Th-S, diabetic and insulin-dependent, GUSTAVO, and neuropathy who presents to hospital today with a chief complaint of nausea and diaphoresis after dialysis. He had his dialysis today as he usually would, he states that roughly 2 L of fluid removed per session, his dry weight is 147 kg. He states his blood pressure was lower than normal today however he does not recall any actual numbers. He had no symptoms during dialysis however afterwards he did feel some nausea and lots of emesis per the and was sweating afterwards so he subsequently came to the hospital. He was febrile on presentation, he does have a white count of 19.5 and he was hypotensive at 96/56. He denies any pain or redness around his right HD tunneled catheter though he endorses not being able to see it so we cannot really comment that well on any redness or swelling or erythema around it. Review of Systems Review of Systems All other systems reviewed & are negative unless noted below or in HPI [facility] Medical History (Updated 11/20/23 @ 22:54 by Buddy Murguia DO) Hypertension Hyperlipidemia End stage renal disease Dependence on renal dialysis Anemia Insulin long-term use Chronic kidney disease, stage 4 (severe) Sleep apnea no machine Pancreatitis Hypothyroid Hyperlipidemia Anemia Dependence on renal dialysis End stage renal disease PD catheter dysfunction Cellulitis Hypertension Neuropathy slim feet-tingling Renal insufficiency Diabetes mellitus, type 2 Surgical History [place] cardiac [place] [facility] [place] [facility] of orthopedic surgery right foot has 14 screws and 3 plates. Family History Mother Breast cancer Cancer Legacy family hx; cancer Father Myocardial infarction Heart disease Grandparent Breast cancer Daughter Crohn's disease Legacy FamHx Relation: Daughter(s) Social History Smoking Status: Never smoker Tobacco Type: smokeless tobacco Substance Use Type: None Meds Medications and Allergies Allergies latex Allergy (Mild, Verified 11/20/23 18:45) Rash vancomycin Allergy (Unknown, Verified 11/20/23 18:45) Rash haloperidol [From Haldol] Adverse Reaction (Verified 11/20/23 18:45) Anxiety Home Medications atorvastatin 20 mg tablet (Lipitor) 20 mg PO QAM 07/15/18 [History Confirmed 11/20/23] fenofibrate nanocrystallized 145 mg tablet (Tricor) 145 mg PO QAM 04/29/20 [History Confirmed 11/20/23] levothyroxine 100 mcg tablet (Synthroid) 100 mcg PO DAILY.AC.BKFAST 04/29/20 [History Confirmed 11/20/23] carvedilol 25 mg tablet 6.25 mg PO BID 07/29/22 [History Confirmed 11/20/23] insulin regular hum U-500 conc 500 unit/mL(3 mL) subcut pen (Humulin R U-500 (Conc) Insulin Kwikpen) 50 unit subcut BID 07/29/22 [History Confirmed 11/20/23] anastrozole 1 mg tablet 1 mg PO QAM 09/16/23 [History Confirmed 11/20/23] calcitriol 0.25 mcg capsule 0.25 mcg PO DAILY with dialysis 09/16/23 [History Confirmed 11/20/23] furosemide 40 mg tablet (Lasix) 80 mg PO BID 09/16/23 [History Confirmed 11/20/23] testosterone 1 % (50 mg/5 gram) transdermal gel packet 1 packet transdermal DAILY 09/16/23 [History Confirmed 11/20/23] calcium acetate(phosphat bind) 667 mg capsule 2,668 mg PO QAC 10/06/23 [History Confirmed 11/20/23] tirzepatide 5 mg/0.5 mL subcutaneous pen injector (Mounjaro) 5 mg subcut QWEEK 10/06/23 [History Confirmed 11/20/23] cyanocobalamin (vitamin B-12) 1,000 mcg tablet (Vitamin B-12) 1,000 mcg PO DAILY10/18/23 [History Confirmed 11/20/23] pregabalin 150 mg capsule 150 mg PO BID neuropathy pain 10/18/23 [History Confirmed 11/20/23] trazodone 50 mg tablet 50 mg PO QHS PRN insomnia 10/18/23 [History Confirmed 11/20/23] Exam Physical Exam Vital Signs: Temp Pulse Resp BP Pulse Ox O2 Del Method 98.3 F 92 16 127/82 96 Room Air 11/20/23 22:20 11/20/23 22:20 11/20/23 22:20 11/20/23 22:20 11/20/23 22:20 11/20/23 22:20 Narrative: General: Awake alert, no acute distress HEENT: head atraumatic, normocephalic, moist mucous membranes Neck: supple no masses, no lymphadenopathy CVS: regular rate and rhythm, no murmurs or gallops Chest: Dressing is CDI surrounding his right HD tunneled catheter, dressing was removed and skin examined, no surrounding erythema. No oozing. There is a small healing wound approximately 1 inch inferior and lateral to the HD cathetersite that has a 2 to 3 mm scab, patient denies knowing what this is from. Respiratory: clear to auscultation bilaterally, no wheezing or crackles, symmetric expansion GI: soft, nondistended, nontender, positive bowel sounds with no organomegaly Extremity: moves all extremities, no restrictions of movements, no calf tenderness, no edema. He currently has a left surgical scar from AV fistula work that is nonhealing, it is scabbed over and does not appear infected. Neuro: AOx3, CN II-VII intact. Moves all extremities in all planes of motion. Skin: dry, intact no rashes or lesions Results - Hospitalist H&P Lab Results Labs: Laboratory Last Values Corrected WBC 19.5 X10E3/uL (4.1-10.5) H 11/20/23 19:00 Uncorrected WBC Count 19.5 x10E3/uL (4.1-10.5) H 11/20/23 19:00 RBC 4.12 X10E6/uL (3.90-5.60) 11/20/23 19:00 Hgb 12.5 g/dL (13.0-17.0) L 11/20/23 19:00 Hct 38.8 % (38.8-50.0) 11/20/23 19:00 MCV 94.0 fl (83.5-101) 11/20/23 19:00 MCH 30.2 pg (27.5-35.2) 11/20/23 19:00 MCHC 32.2 g/dL (32.5-35.6) L 11/20/23 19:00 RDW 16.1 % (12.0-14.8) H 11/20/23 19:00 Plt Count 280 x10E3/uL (150-450) 11/20/23 19:00 MPV 8.0 fl (6.6-10.1) 11/20/23 19:00 Neut % (Auto) N/A 11/20/23 19:00 Lymph % (Auto) N/A 11/20/23 19:00 Addison % (Auto) N/A 11/20/23 19:00 Eos % (Auto) N/A 11/20/23 19:00 Baso % (Auto) N/A 11/20/23 19:00 Nucleat RBC Rel Count N/A 11/20/23 19:00 Neut # (Auto) N/A 11/20/23 19:00 Lymph # (Auto) N/A 11/20/23 19:00 Addison # (Auto) N/A 11/20/23 19:00 Eos # (Auto) N/A 11/20/23 19:00 Baso # (Auto) N/A 11/20/23 19:00 Lymphocytes % 1 % (18-42) L 11/20/23 19:00 Monocytes % 4 % (2-11) 11/20/23 19:00 Segmented Neutrophils 94 % (50-70) H 11/20/23 19:00 Monocyte Dist Width 25.63 % (0.00-20.00) H 11/20/23 19:00 Reactive Lymphocytes 1 % (0-12) 11/20/23 19:00 Platelet Estimate Normal (Normal) 11/20/23 19:00 Plt Morphology Comment Normal (Normal) 11/20/23 19:00 RBC Morphology N/A 11/20/23 19:00 Anisocytosis Moderate 11/20/23 19:00 Microcytosis Slight 11/20/23 19:00 Stomatocytes Slight 11/20/23 19:00 ESR 66 mm/hr (0-19) H 11/20/23 19:00 PT 12.8 Seconds (9.0-12.9) 11/20/23 19:00 INR 1.1 11/20/23 19:00 APTT 31.0 Seconds (25.1-36.5) 11/20/23 19:00 PHA Creatinine Clear 21.03 11/20/23 19:00 Sodium 138 mmol/L (136-145) 11/20/23 19:00 Potassium 4.2 mmol/L (3.5-5.1) 11/20/23 19:00 Chloride 103 mmol/L (98-107) 11/20/23 19:00 Carbon Dioxide 21.9 mmol/L (21.0-31.0) 11/20/23 19:00 Anion Gap 17.3 mEq/L (6.0-15.0) H 11/20/23 19:00 BUN 32 mg/dL (7-25) H 11/20/23 19:00 Creatinine 6.29 mg/dL (0.70-1.30) H 11/20/23 19:00 Est GFR (CKD-EPI) 9.967 mL/Min 11/20/23 19:00 Glucose 121 mg/dL (70-100) H 11/20/23 19:00 POC Glucose 111 mg/dl 11/20/23 19:24 Lactic Acid 1.7 mmol/L (0.5-2.2) 11/20/23 19:00 Calcium 8.9 mg/dL (8.6-10.3) 11/20/23 19:00 Magnesium 1.6 mg/dL (1.9-2.7) L 11/20/23 19:00 Total Bilirubin 0.6 mg/dl (0.3-1.0) 11/20/23 19:00 AST 24 U/L (13-39) 11/20/23 19:00 ALT 25 U/L (7-52) 11/20/23 19:00 Alkaline Phosphatase 51 U/L (34-104) 11/20/23 19:00 Total Creatine Kinase 135 U/L (30-223) 11/20/23 19:00 Troponin I High Sens 15.2 pg/mL (0.0-20.0) 11/20/23 19:00 C-Reactive Prot, Quant 3.9 mg/dL (0.0-0.5) H 11/20/23 19:00 B-Natriuretic Peptide 15.0 pg/mL (5-100) 11/20/23 19:00 Total Protein 8.3 gm/dL (6.4-8.9) 11/20/23 19:00 Albumin 4.4 gm/dL (3.5-5.7) 11/20/23 19:00 Globulin 3.9 gm/dL 11/20/23 19:00 Albumin/Globulin Ratio 1.1 11/20/23 19:00 TSH 3rd Generation 1.36 uIU/mL (0.45-5.33) 11/20/23 19:00 COVID-19 Clin Com Not detected (Not Detecte) 11/20/23 19:04 Microbiology Results Micro: Microbiology - Results from entire visit 11/20/23 19:04 Nasopharyngeal Respiratory Panel (PCR) - Final Assessment & Plan Assessment/Plan (1) SIRS (systemic inflammatory response syndrome): Plan: ? Patient presents with history of positive for leukocytes, fever, her blood cell count ? Source of infection is presumed to be his right-sided HD tunneled catheter ? On ceftriaxone and linezolid, patient has allergy to vancomycin ? He did receive the 30 cc/kg fluid bolus emergency room to satisfy sepsis, he is currently breathing well, his blood pressure did elevate with this and as he is currently normotensive ? Continue antibiotics ? Cultures were obtained via venous puncture in the emergency room prior antibiotics, there was not a culture obtained from the dialysis catheter, this will be taken tomorrow from a dialysis nurse (2) Vomiting: Plan: ? Zofran as needed, see above (3) Leukocytosis: Plan: See above (4) Dependence on renal dialysis: Plan: ? Nephrology consulted, dialysis days are Wednesday, , Wednesday (5) Metabolic acidosis: Plan: See above (6) Hypomagnesemia: Plan: He received 4 g mag sulfate tonight, recheck in the morning (7) Diabetes: Plan: ? Patient glucose is well-controlled upon admission, he is okay to use his home Dexcom, continue home medications ? Diabetic diet Plan ? DVT prophylaxis addressed ? Diabetic diet ? Full code IP vs OBS Justification Based on differential dx, clinical care plan, and risk of adverse events, if untreated, in my clinical judgement this patient requires an acute care setting as: INPATIENT because of an expectation of an over 2 midnight stay. 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 Surgical History HEART CATH 09/2018 Surgical History Right foot surgery 12/2018 Hospitalization History WOUND ON LEG 02/07/17 Hospitalization History see above Hospitalization History INFECTION IN LEFT FOOT [employer] Other Histpex general Narrative - Reported* Type Description Date Medical History ANEMIA Medical History STAGE 5 CHRONIC KIDN EY DISEASAE; UNDERGOING WORK UP FOR TRANSPLANT AT [facility] 2022 Medical History HYPERTENSION Medical History HYPERLIPIDEMIA Medical History HYPOTHYROIDISM Medical History PANCREATITIS X2 Medical History 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 Surgical History HEART CATH 09/2018 Surgical History Right foot surgery 12/2018 Surgical History Left foot surgery 2018 Hospitalization History WOUND ON LEG 02/07/17 Hospitalization History see above Hospitalization History INFECTION IN LEFT FOOT [employer] Other history general Narrative - Reported* Type Description Date Medical History ANEMIA Medical History STAGE 5 CHRONIC KIDN EY DISEASAE; UNDERGOING WORK UP FOR TRANSPLANT AT [facility] 2022 Medical History HYPERTENSION Medical History HYPERLIPIDEMIA Medical History HYPOTHYROIDISM Medical History PANCREATITIS X2 Medical History 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 Surgical History HEART CATH 09/2018 Surgical History Right foot surgery 12/2018 Surgical History Left foot surgery 2018 Surgical History pd cath creation Surgical History hd cath placement 09/29 Hospitalization History WOUND ON LEG 02/07/17 Hospitalization History see above Hospitalization History INFECTION IN LEFT FOOT [employer] Other Hospital Discharge instructions Additional Instructions Call your primary doctor later today for follow-up appointment next week You can take trazodone to help you with your sleep as needed, use the Ativan only as needed for anxiety [facility]: Hospital Discharge instructions Additional Instructions Bananas, rice, applesauce, toast to formed stool Follow-up with nephrology as planned on Wednesday Here if you develop any chest pain, shortness of breath, fevers, chills or any other concerns Trazodone to help you sleep as needed Zofran for nausea as needed Monitor your [facility]Cl[facility] Work Phone: Hospital Discharge instructionsAmbulatory Orders* DME Home Medical Equipment Time Frame: 1 Day, Location: Determined By Patient Additional Instructions DISCHARGE INSTRUCTIONS FOR GENERAL SURGERY YOUR ACTIVITY MAY INCLUDE: -Going up and down stairs slowly. -Walking around the house or outside if the weather is satisfactory. -No driving until you are seen in office and cleared for driving. -Light housework or light work permitted in 2 weeks. -Heavy lifting permitted 2 weeks At your first office visit we will discuss: Return to work, return to sports, return to exercise, etc. WOUND CARE/INCISION CARE: -Keep incision clean and dry -Sponge bathe only first week then showers ok -Is it common to feel pulling or sharp sticking sensations in the area of incision, these sensations are a part of the normal healing process. -If you develop fever, increasing pain, redness, or swelling around the incision, please notify our office MEDICATION -Resume all previous medications that you were taking for problems unrelated to your surgery, unless informed otherwise. If there are any problems with this, please call the original prescribing doctor. If you have any other questions regarding medications, please call our office. -Over the counter medications such as Acetaminophen, Ibuprofen, Naproxen, and others may be used as directed for pain unless a prescription was provided. 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 High in the office in 1 [facility] Work Phone: Hospital Discharge instructions Additional Instructions DISCHARGE INSTRUCTIONS FOR FOOT AND ANKLE SURGERY The following instructions must be followed very closely: -If you need pain pills, start before pain becomes intense. Antibiotics and pain pills are frequently less upsetting to your stomach if you take them with food such as crackers or bread. -If you have excessive or persistent pain, swelling, bleeding, nausea, vomiting, or any other problems, you should first call your surgeon for advice. If you are unable to contact your surgeon, seek help from a hospital emergency room. If you were given drugs to make you drowsy and or pain medications, follow these instructions: -You should spend the remainder of the day and evening resting. -You should not attempt to walk, including going to the bathroom, without assistance. You may be lightheaded from the medications you received. -Eat light today to avoid nausea. You should be able to return to your normal diet 24-36 hours after surgery. -For the next 24 hours you should not consume alcohol, attempt to drive, use any power tools, sign important documents or make important personal or business decisions. After that do so only if you feel perfectly normal and alert. -Follow carefully any verbal or written instructions you surgeon may have given you. DIET -Salt can affect circulation to your extremities- limit your daily intake to less than 2 grams per day during your recovery period. ACTIVITY -NWBing to the right heel as much as possible. Use walking boot on Right leg -Restrict your activity and stay off your foot as much as possible, until instructed otherwise. -Elevate your foot/ankle above your heart level- bend your knees slightly. -Keep bandages/dressings clean, dry, and intact. -Do NOT attempt to shower or bathe using a plastic bag over the bandage, because they leak and the condensation will soak the bandages, as well. Sponge bathe only, until instructed to do differently by your doctor. MEDICATIONS -Medications as prescribed. OTHER -Smoking significantly affects circulation to your lower extremities. DO NOT smoke. FOLLOW UP -If you have any problems or concerns before your first post-op visit, call the office at [phone] anytime. We have an answering service which will contact the doctor at anytime. -Follow-up as scheduledCl[facility] Work Phone: Hospital Discharge instructions Additional Instructions DISCHARGE INSTRUCTIONS FOR FOOT AND ANKLE SURGERY The following instructions must be followed very closely: -If you need pain pills, start before pain becomes intense. Antibiotics and pain pills are frequently less upsetting to your stomach if you take them with food such as crackers or bread. -If you have excessive or persistent pain, swelling, bleeding, nausea, vomiting, or any other problems, you should first call your surgeon for advice. If you are unable to contact your surgeon, seek help from a hospital emergency room. If you were given drugs to make you drowsy and or pain medications, follow these instructions: -You should spend the remainder of the day and evening resting. -You should not attempt to walk, including going to the bathroom, without assistance. You may be lightheaded from the medications you received. -Eat light today to avoid nausea. You should be able to return to your normal diet 24-36 hours after surgery. -For the next 24 hours you should not consume alcohol, attempt to drive, use any power tools, sign important documents or make important personal or business decisions. After that do so only if you feel perfectly normal and alert. -Follow carefully any verbal or written instructions you surgeon may have given you. DIET -Salt can affect circulation to your extremities- limit your daily intake to less than 2 grams per day during your recovery period. ACTIVITY -Nonweightbearing to the right foot with use of a walking boot -Restrict your activity and stay off your foot as much as possible, until instructed otherwise. -Elevate your foot/ankle above your heart level- bend your knees slightly. -Keep bandages/dressings clean, dry, and intact. -Do NOT attempt to shower or bathe using a plastic bag over the bandage, because they leak and the condensation will soak the bandages, as well. Sponge bathe only, until instructed to do differently by your doctor. MEDICATIONS -Medications as prescribed. OTHER -Smoking significantly affects circulation to your lower extremities. DO NOT smoke. FOLLOW UP -If you have any problems or concerns before your first post-op visit, call the office at [phone] anytime. We have an answering service which will contact the doctor at anytime. -Follow-up as scheduledCl[facility] Work Phone: Hospital Discharge instructions Additional Instructions If your symptoms return/worsen or you develop any further concerns or symptoms please see your doctor or return to the emergency department immediately.[facility] Work Phone: Hospital Discharge instructions Additional Instructions Follow-up with your primary care doctor Return to ED for present symptoms or concernsCl[facility] Work Phone: Hospital Discharge instructions Additional Instructions You were seen today for fatigue and nausea. Your COVID, influenza, RSV test were negative. Remainder of your lab work was normal with the exception of mild elevation in your creatinine which is to be expected since you are on dialysis. Your heart enzymes were normal. Your markers for blood clots were negative. Recommend that you follow-up with your primary care doctor within the next couple of days. If your symptoms worsen or you develop chest pain or shortness of breath, lightheadedness or dizziness please return to the emergency department. You were treated for high blood pressure today. Please make sure you are taking medications as prescribed. [facility] Work Phone: Hospital Discharge instructions Additional Instructions Call pain management tomorrow for additional refills [facility] Work Phone: Progress note Author Chintan Brewster [facility] November 05, 2022 3:55pm Note Date/Time November 05, 2022 3:55 pm [facility] [address] [place] [address] Hospitalist Progress Note Signed Patient: Evans Forte MR#: [id number] : 1970 Acct:[id number] Age/Sex: 52 / M Adm Date: 3 Loc: Room: [address] [place] [address] Type: ADM IN Attending Dr: Chintan Brewster DO Copies to: ~ Date of Service: 11/05/2022 Subjective Subjective Narrative: Patient seen and examined at bedside. No acute events overnight. Reports mild sore throat and cough Physical Examination: GENERAL APPEARANCE: Alert, up in bed AAOx3 HEENT: NCAT, MMM NECK: Neck soft w/o masses, no JVD CARDIAC: Normal S1 and S2. No S3, S4 or murmurs. LUNGS: Clear to auscultation bilaterally. no wheeze/rhonchi/rales ABDOMEN: Positive bowel sounds. Soft, nontender. No guarding or signs of an acute abdomen MUSCULOSKELETAL: No joint erythema or tenderness. EXTREMITIES: No clubbing, cyanosis. 1+ pitting edema bilateral lower extremities. PSYCHIATRIC: Appropriate mood and affect Assessment and plan: 1. Hyperkalemia Improved today. Appreciate nephrology recommendations 2. Leukocytosis Mild, also accompanies a mild fever. Monitor for signs of infection. No symptoms of infection presently. 3. Anemia Chronic likely in part due to CKD. 4. Diabetes mellitus, insulin-dependent Continue home insulin regimen. 5. Hypothyroidism Continue home levothyroxine 100 mcg daily. 6. Sore throat Viral screen Exam Physical Exam Vital Signs: Temp Pulse Resp BP Pulse Ox O2 Del Method 98.3 F 87 16 165/79 H 96 Room Air 11/05/22 14:48 11/05/22 14:48 11/05/22 14:48 11/05/22 14:48 11/05/22 14:48 11/05/22 14:48 Objective Lab Results 11/05/22 04:24 11/05/22 04:24 Meds Allergies and Active Meds Allergies No Known Allergies Allergy (Verified 11/04/22 13:54) Active Meds: Active Medications Generic Name Dose Route Start Last Admin Trade Name Rachel PRN Reason Stop Dose Admin Ascorbic Acid 500 mg 11/05/22 09:00 11/05/22 08:49 Ascorbic Acid 500 Mg Tablet PO 11/05/23 08:59 500 mg DAILY VINCE Administration Atorvastatin Calcium 20 mg 11/05/22 09:00 11/05/22 08:50 Atorvastatin 20 Mg Tablet PO 11/05/23 08:59 20 mg DAILY VINCE Administration Carvedilol 25 mg 11/04/22 21:00 11/05/22 08:50 Carvedilol 25 Mg Tablet PO 11/04/23 20:59 25 mg BID VINCE Administration Emollient Ointment 1 applic 11/05/22 10:00 Petrolatum,White 99 Gm Oint...G. TOPICAL 11/05/23 09:59 DAILY [facility] Fenofibrate 145 mg 11/05/22 09:00 11/05/22 08:48 Fenofibrate Nanocrystallized 145 Mg Tablet PO 11/05/23 08:59 145 mg DAILY VINCE Administration Ferrous Sulfate 324 mg 11/05/22 09:00 11/05/22 08:52 Ferrous Sulfate 324 Mg Tablet. PO 11/05/23 08:59 324 mg DAILY VINCE Administration Folic Acid 1 tab 11/05/22 09:00 11/05/22 08:48 Cyanocobalamin/Fa/Pyridoxine 1 Tab Tablet PO 11/05/23 08:59 1 tab DAILY VINCE Administration Furosemide 80 mg 11/06/22 08:00 Furosemide 80 Mg Tablet PO 11/06/23 07:59 DAILY.8A [facility] Heparin Sodium (Porcine) 5,000 unit 11/05/22 14:00 11/05/22 14:48 Heparin 5,000 Unit/Ml Vial SUBCUT 11/05/23 13:59 5,000 unit Q8HR VINCE Administration Hydralazine HCl 10 mg 11/04/22 23:31 11/04/22 23:40 Hydralazine 20 Mg/Ml Vial IV-PUSH 11/04/23 23:30 10 mg Q4H PRN Administration if SBP > 185 Hydralazine HCl 50 mg 11/05/22 06:00 11/05/22 14:49 Hydralazine 50 Mg Tablet PO 11/05/23 05:59 50 mg TID VINCE Administration Insulin Human Regular 45 unit 11/05/22 17:00 Insulin Regular U-500, Human 1,500 Unit/3 Ml Insuln.Pen SUBCUT 11/05/23 16:59 DAILY@1700 [facility] Insulin Human Regular 70 unit 11/05/22 06:00 11/05/22 08:05 Insulin Regular U-500, Human 1,500 Unit/3 Ml Insuln.Pen SUBCUT 11/05/23 05:59 70 unit DAILY@0600 [facility] Administration Labetalol HCl 10 mg 11/04/22 16:32 11/04/22 21:41 Labetalol 100 Mg/20 Ml Vial IV-PUSH 11/04/23 16:31 10 mg Q10M PRN Administration Hypertension Levothyroxine Sodium 100 mcg 11/05/22 06:30 11/05/22 06:10 Levothyroxine 100 Mcg Tablet PO 11/05/23 06:29 100 mcg DAILY@0630 VINCE Administration Nifedipine 90 mg 11/05/22 09:00 11/05/22 08:52 Nifedipine Er.24hr 90 Mg Tab.Er.24 PO 11/05/23 08:59 90 mg DAILY VINCE Administration Pregabalin 50 mg 11/05/22 09:00 11/05/22 08:52 Pregabalin 50 Mg Capsule PO 05/04/23 08:59 50 mg DAILY VINCE Administration Sodium Bicarbonate 1,300 mg 11/05/22 14:40 Sodium Bicarbonate 650 Mg Tablet PO 11/05/23 10:29 BID VINCE Sodium Chloride 0 ml 11/04/22 13:54 Sodium Chloride 0.9 % 10 Ml Syringe IV-PUSH 11/04/23 13:53 PRN PRN Flush Vitamin A 3,000 mcg 11/05/22 09:00 11/05/22 08:52 Vitamin A 3,000 Mcg (10,000 Units) Capsule PO 11/05/23 08:59 3,000 mcg DAILY VINCE Administration Vitamin D 50 mcg 11/05/22 09:00 11/05/22 08:50 Cholecalciferol 25 Mcg (1,000 Units) Tablet PO 11/05/23 08:59 50 mcg DAILY VINCE Administration Zinc Gluconate 50 mg 11/05/22 09:00 11/05/22 08:52 Zinc Gluconate 50 Mg Tablet PO 11/05/23 08:59 50 mg DAILY VINCE Administration Documented By: Chintan Brewster DO 11/05/22 15 54 Signed By: <Electronically signed by Chintan Brewster DO> 11/05/22 1555 [facility] Work Phone: Progress note Author Yocasta Villalba [facility] November 06, 2022 2:57pm Note Date/Time November 06, 2022 2:57 pm [facility] [address] [place] [address] Nephrology Progress Note Signed Patient: Evans Forte MR#: [id number] : 1970 Acct:[id number] Age/Sex: 52 / M Adm Date: 3 Loc: Room: [address] [place] [address] Type: ADM IN Attending Dr: Chintan Brewster DO Copies to: ~ Date of Service: 11/06/2022 Subjective Subjective Narrative: This is a 52-year-old male patient with a past sickle history of chronic kidney disease stage V from diabetic nephropathy, hypertension, morbid obesity, anemia of renal disease, neuropathy. 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 Patient is known to Dr. Waters and he has been following with him for CKD stage V. Lab workin the emergency room showed potassium 5.3 mmol/L. Patient was giving calcium chloride along with Lokelma and 1 dose of the Lasix. Patient also started on IVfluid normal saline 75 cc/h. Serum potassium this morning 4.6 mmol/L. Renal team was consulted for CKD stage V, hypertension and electrolyte imbalance management. Noted high blood pressure this morning. Patient has been on the same home medications Coreg, hydralazine, nifedipine. Noted metabolic acidosis with serum bicarb level 16.7 mmol/L Patient denied nausea vomiting. He has mild edema of lower extremity. No itchiness no chest pain. No cough. Has been having nasal congestion with headache for the last few days. Noted mild fever this morning. White cell count 13 Interval history: Patient was seen examined his room. Patient is scheduled to have PD catheter placed later today. Currently NPO. Potassium level slightly high at 5.5 mmol/L. Yesterday, increase his Lasix to 80 mg once daily. Serum creatinine slightly worse today at 6.5 mg deciliter andGFR 9 hemoglobin. Patient noted more urine output with higher dose of Lasix Denied nausea vomiting. No shortness of breath. No metallic taste. No asterixis. No chest pain. Respiratory status low at 12%. Patient started on loading dose of Ferrlecit 250mg x4 Exam Physical Exam Vital Signs: Temp Pulse Resp BP Pulse Ox O2 Del Method 98.0 F 76 16 152/68 H 98 Room Air 11/06/22 12:28 11/06/22 12:28 11/06/22 12:28 11/06/22 12:28 11/06/22 12:28 11/06/22 12:28 Narrative: General: No acute distress Head :atraumatic normocephalic Eyes: PERRLA. Neck: no JVD no bruit. Heart: S1-S2. RRR Respiratory: Clear to auscultation. No wheezing. No crackles Abdomen: Soft, positive bowel sounds,no tenderness. Neurology: Awake alert oriented x3. No focal deficits Extremity. No cyanosis. Trace edema of lower extremities Skin: No skin rash Objective Intake and Output I&O: Intake & Output 11/03/22 11/04/22 11/05/22 11/06/22 23:59 23:59 23:59 23:59 Intake Total 860 / 860 1110 / 1110 Balance 860 / 860 1110 / 1110 Weight 145 kg 145 kg Meds and Allergies Meds: Active Medications Hydrocodone Bitart/Acetaminophen (Hydrocodone/Acetaminophen 5-325 Mg Tablet) 1 tab PO Q4H PRN PRN Reason: Pain Hydrocodone Bitart/Acetaminophen (Hydrocodone/Acetaminophen 5-325 Mg Tablet) 2 tab PO Q4H PRN PRN Reason: pain Ascorbic Acid (Ascorbic Acid 500 Mg Tablet) 500 mg PO DAILY [facility] Stop: 11/05/23 08:59 Last Admin: 11/06/22 10:32 Dose: Not Given Atorvastatin Calcium (Atorvastatin 20 Mg Tablet) 20 mg PO DAILY [facility] Stop: 11/05/23 08:59 Last Admin: 11/06/22 10:32 Dose: Not Given Carvedilol (Carvedilol 25 Mg Tablet) 25 mg PO BID [facility] Stop: 11/04/23 20:59 Last Admin: 11/06/22 09:05 Dose: 25 mg Docusate Sodium (Docusate 100 Mg Capsule) 100 mg PO BID [facility] Stop: 11/06/23 20:59 Droperidol (Droperidol 5 Mg/2 Ml Vial) 1.25 mg IV-PUSH ONCE PRN PRN Reason: Nausea And Vomiting Stop: 11/06/22 16:28 Emollient Ointment (Petrolatum,White 99 Gm Oint...G.) 1 applic TOPICAL DAILY [facility] Stop: 11/05/23 09:59 Last Admin: 11/06/22 09:05 Dose: 1 applic Fenofibrate (Fenofibrate Nanocrystallized 145 Mg Tablet) 145 mg PO DAILY [facility] Stop: 11/05/23 08:59 Last Admin: 11/05/22 08:48 Dose: 145 mg Ferrous Sulfate (Ferrous Sulfate 324 Mg Tablet.Dr) 324 mg PO DAILY [facility] Stop: 11/05/23 08:59 Last Admin: 11/06/22 10:32 Dose: Not Given Folic Acid (Cyanocobalamin/Fa/Pyridoxine 1 Tab Tablet) 1 tab PO DAILY [facility] Stop: 11/05/23 08:59 Last Admin: 11/06/22 10:32 Dose: Not Given Heparin Sodium (Porcine) (Heparin 5,000 Unit/Ml Vial) 5,000 unit SUBCUT Q8HR [facility] Stop: 11/05/23 13:59 Last Admin: 11/06/22 14:15 Dose: Not Given Hydralazine HCl (Hydralazine 20 Mg/Ml Vial) 10 mg IV-PUSH Q4H PRN PRN Reason: if SBP > 185 Stop: 11/04/23 23:30 Last Admin: 11/04/22 23:40 Dose: 10 mg Hydralazine HCl (Hydralazine 50 Mg Tablet) 50 mg PO TID [facility] Stop: 11/05/23 05:59 Last Admin: 11/06/22 10:32 Dose: Not Given Sodium Chloride (0.9% Sodium Chloride 500 Ml) 500 mls @ 20 mls/hr IV ONCE ONE Stop: 11/07/22 10:00 Last Admin: 11/06/22 10:37 Dose: 20 mls/hr Ferric Sodium Gluconate Complex 250 mg/ Sodium Chloride 270 mls @ 135 mls/hr IVQAM [facility] Stop: 11/09/22 09:01 Last Infusion: 11/06/22 13:03 Dose: Infused Insulin Human Regular (Insulin Regular U-500, Human 1,500 Unit/3 Ml Insuln.Pen) 45 unit SUBCUT DAILY@1700 [facility] Stop: 11/05/23 16:59 Last Admin: 11/05/22 18:24 Dose: 45 unit Insulin Human Regular (Insulin Regular U-500, Human 1,500 Unit/3 Ml Insuln.Pen) 70 unit SUBCUT DAILY@0600 [facility] Stop: 11/05/23 05:59 Last Admin: 11/06/22 06:25 Dose: Not Given Insulin Human Regular (Insulin Regular, Human 300 Unit/3 Ml) 0 unit SUBCUT PROTOCOL PRN; Protocol PRN Reason: High Blood Glucose Stop: 11/07/22 00:34 Last Admin: 11/06/22 12:39 Dose: 3 unit Labetalol HCl (Labetalol 100 Mg/20 Ml Vial) 10 mg IV-PUSH Q10M PRN PRN Reason: Hypertension Stop: 11/04/23 16:31 Last Admin: 11/04/22 21:41 Dose: 10 mg Labetalol HCl (Labetalol 100 Mg/20 Ml Vial) 10 mg IV-PUSH Q10M PRN PRN Reason: Hypertension Stop: 11/06/22 16:28 Levothyroxine Sodium (Levothyroxine 100 Mcg Tablet) 100 mcg PO DAILY@0630 [facility] Stop: 11/05/23 06:29 Last Admin: 11/06/22 06:38 Dose: Not Given Lidocaine HCl (Lidocaine 1% 20 Ml Vial) 0.1 ml INTRADERMA PREOP PRN PRN Reason: Venipuncture Stop: 11/06/22 15:01 Lidocaine HCl (Lidocaine 1% 20 Ml Vial) 0.1 ml INTRADERMA PREOP PRN PRN Reason: Venipuncture Stop: 11/06/22 18:34 Nifedipine (Nifedipine Er.24hr 90 Mg Tab.Er.24) 90 mg PO DAILY [facility] Stop: 11/05/23 08:59 Last Admin: 11/06/22 10:32 Dose: Not Given Ondansetron HCl (Ondansetron 4 Mg/2 Ml Vial) 4 mg IV-PUSH ONCE PRN PRN Reason: Nausea/Vomiting Stop: 11/06/22 16:28 Pregabalin (Pregabalin 50 Mg Capsule) 50 mg PO DAILY [facility] Stop: 05/04/23 08:59 Last Admin: 11/06/22 10:32 Dose: Not Given Sodium Bicarbonate (Sodium Bicarbonate 650 Mg Tablet) 1,300 mg PO BID [facility] Stop: 11/05/23 10:29 Last Admin: 11/06/22 10:32 Dose: Not Given Sodium Chloride (Sodium Chloride 0.9 % 10 Ml Syringe) 0 ml IV-PUSH PRN PRN PRN Reason: Flush Stop: 11/04/23 13:53 Sodium Zirconium Cyclosilicate 10 gm/ Sodium Zirconium Cyclosilicate 5 gm 15 gmPO DAILY [facility] Stop: 11/06/23 10:29 Vitamin A (Vitamin A 3,000 Mcg (10,000 Units) Capsule) 3,000 mcg PO DAILY [facility] Stop: 11/05/23 08:59 Last Admin: 11/06/22 10:32 Dose: Not Given Vitamin D (Cholecalciferol 25 Mcg (1,000 Units) Tablet) 50 mcg PO DAILY [facility] Stop: 11/05/23 08:59 Last Admin: 11/06/22 10:32 Dose: Not Given Zinc Gluconate (Zinc Gluconate 50 Mg Tablet) 50 mg PO DAILY [facility] Stop: 11/05/23 08:59 Last Admin: 11/06/22 10:32 Dose: Not Given Allergies haloperidol [From Haldol] Adverse Reaction (Verified 11/06/22 00:55) Anxiety Results Labs 11/06/22 04:25 11/06/22 04:25 Labs: 11/06/22 04:25 BUN 63 H Creatinine 6.54 H Iron Saturation 12.1 L Ferritin 363.1 H Radiology Impressions Impressions - last 24 hours: Any impression(s) listed above is documentation that was entered by the reading physician into a diagnostic report(s) for Evans Forte. I have reviewed the report(s) and am incorporating any findings in the treatment plan of this patient where applicable. A&P - Nephrology Assessment/Plan (1) CKD (chronic kidney disease) stage 5, GFR less than 15 ml/min: Plan: Patient is known to Dr. 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 Patient has reached end-stage disease and he needs to be on renal placement therapy. Patient has opted for peritoneal dialysis. I consulted general surgeon for PD catheter placement. PD catheter placement is arranged for today. There is no urgent need to start renal placement therapy. I believethe patient can wait 2 weeks to start t PD training (2) Insulin dependent diabetes mellitus: Plan: Patient has diabetes for many years. Currently on insulin as directed by the primary service (3) Hypertensive chronic kidney disease with stage 1 through stage 4 chronic kidney disease, or unspecified chronic kidney disease: Plan: Likely due to CKD progression. Blood pressure improved slightly with increasingdiltiazem dose. Volume status is well controlled. I will stop Lasix due to worsening kidney function. Continue to monitor blood pressure and adjust medications as needed (4) Hyperkalemia: Plan: Likely from metabolic acidosis and advanced CKD. This corrected with Lokelma. However potassium is higher again today. I will resume Lokelma 15 g daily. Check potassium level in the morning (5) Metabolic acidosis: Plan: Likely from advanced CKD. Improved with higher dose of sodium bicarb. Continuesodium bicarb dose at 1300 mg twice daily. Check serum bicarb level in a.m. Documented By: Yocasta Villalba MD 11/06/22 1453 Signed By: <Electronically signed by Yocasta Villalba MD> 11/06/22 1457 [facility] Work Phone: Progress note Author Chintan Brewster [facility] November 06, 2022 5:26pm Note Date/Time November 06, 2022 5:26 pm [facility] [address] [place] [address] Hospitalist Progress Note Signed Patient: Evans Forte MR#: [id number] : 1970 Acct:[id number] Age/Sex: 52 / M Adm Date: 3 Loc: Room: [address] [place] [address] Type: ADM IN Attending Dr: Chintan Brewster DO Copies to: ~ Date of Service: 11/06/2022 Subjective Subjective Narrative: Patient seen and examined at bedside. No acute events overnight. Reports mild sore throat and cough Physical Examination: GENERAL APPEARANCE: Alert, up in bed AAOx3 HEENT: NCAT, MMM NECK: Neck soft w/o masses, no JVD CARDIAC: Normal S1 and S2. No S3, S4 or murmurs. LUNGS: Clear to auscultation bilaterally. no wheeze/rhonchi/rales ABDOMEN: Positive bowel sounds. Soft, nontender. No guarding or signs of an acute abdomen MUSCULOSKELETAL: No joint erythema or tenderness. EXTREMITIES: No clubbing, cyanosis. 1+ pitting edema bilateral lower extremities. PSYCHIATRIC: Appropriate mood and affect Assessment and plan: 1. Hyperkalemia Again elevated today. Appreciate nephrology recommendations. A.m. labs 2. Leukocytosis I suspect this may be due to the patient's significant anxiety. Continue to monitor for fevers. Infectious work-up is otherwise negative. 3. Anemia Chronic likely in part due to CKD. 4. Diabetes mellitus, insulin-dependent Continue home insulin regimen. 5. Hypothyroidism Continue home levothyroxine 100 mcg daily. 6. Anxiety As needed Ativan. Start trazodone for sleep given his complaints of insomnia. Patient likely needs longer term maintenance therapy for generalized anxiety. Exam Physical Exam Vital Signs: Temp Pulse Resp BP Pulse Ox O2 Del Method O2 Flow Rate 97.3 F L 78 20 159/79 H 98 Room Air 3 11/06/22 15:37 11/06/22 15:37 11/06/22 15:37 11/06/22 15:37 11/06/22 15:37 11/06/22 16:00 11/06/22 14:55 Objective Lab Results 11/06/22 04:25 11/06/22 04:25 Microbiology Results Microbiology 11/05/22 17:16 Nasopharyngeal SARS-CoV-2, Influenza & RSV (PCR) - Final Meds Allergies and Active Meds Allergies haloperidol [From Haldol] Adverse Reaction (Verified 11/06/22 00:55) Anxiety Active Meds: Active Medications Generic Name Dose Route Start Last Admin Trade Name Freq PRN Reason Stop Dose Admin Hydrocodone Bitart/Acetaminophen 1 tab 11/06/22 14:34 Hydrocodone/Acetaminophen 5-325 Mg Tablet PO Q4H PRN Pain Hydrocodone Bitart/Acetaminophen 2 tab 11/06/22 14:34 Hydrocodone/Acetaminophen 5-325 Mg Tablet PO Q4H PRN pain Ascorbic Acid 500 mg 11/05/22 09:00 11/06/22 10:32 Ascorbic Acid 500 Mg Tablet PO 11/05/23 08:59 Not Given DAILY [facility] Atorvastatin Calcium 20 mg 11/05/22 09:00 11/06/22 10:32 Atorvastatin 20 Mg Tablet PO 11/05/23 08:59 Not Given DAILY [facility] Carvedilol 25 mg 11/04/22 21:00 11/06/22 09:05 Carvedilol 25 Mg Tablet PO 11/04/23 20:59 25 mg BID [facility] Administration Docusate Sodium 100 mg 11/06/22 21:00 Docusate 100 Mg Capsule PO 11/06/23 20:59 BID [facility] Emollient Ointment 1 applic 11/05/22 10:00 11/06/22 09:05 Petrolatum,White 99 Gm Oint...G. TOPICAL 11/05/23 09:59 1 applic DAILY [facility] Administration Fenofibrate 145 mg 11/05/22 09:00 11/05/22 08:48 Fenofibrate Nanocrystallized 145 Mg Tablet PO 11/05/23 08:59 145 mg DAILY [facility] Administration Ferrous Sulfate 324 mg 11/05/22 09:00 11/06/22 10:32 Ferrous Sulfate 324 Mg Tablet.Dr PO 11/05/23 08:59 Not Given DAILY [facility] Folic Acid 1 tab 11/05/22 09:00 11/06/22 10:32 Cyanocobalamin/Fa/Pyridoxine 1 Tab Tablet PO 11/05/23 08:59 Not Given DAILY [facility] Heparin Sodium (Porcine) 5,000 unit 11/05/22 14:00 11/06/22 14:15 Heparin 5,000 Unit/Ml Vial SUBCUT 11/05/23 13:59 Not Given Q8HR [facility] Hydralazine HCl 10 mg 11/04/22 23:31 11/04/22 23:40 Hydralazine 20 Mg/Ml Vial IV-PUSH 11/04/23 23:30 10 mg Q4H PRN Administration if SBP > 185 Hydralazine HCl 50 mg 11/05/22 06:00 11/06/22 15:41 Hydralazine 50 Mg Tablet PO 11/05/23 05:59 50 mg TID [facility] Administration Sodium Chloride 500 mls @ 20 mls/hr 11/06/22 09:01 11/06/22 10:37 0.9% Sodium Chloride 500 Ml IV 11/07/22 10:00 20 mls/hr ONCE ONE Administration Ferric Sodium Gluconate 270 mls @ 135 mls/hr 11/06/22 10:20 11/06/22 13:03 Complex 250 mg/ Sodium IV 11/09/22 09:01 Infused Chloride QAM [facility] Infusion Insulin Human Regular 45 unit 11/05/22 17:00 11/06/22 17:13 Insulin Regular U-500, Human 1,500 Unit/3 Ml Insuln.Pen SUBCUT 11/05/23 16:59 45 unit DAILY@1700 [facility] Administration Insulin Human Regular 70 unit 11/05/22 06:00 11/06/22 06:25 Insulin Regular U-500, Human 1,500 Unit/3 Ml Insuln.Pen SUBCUT 11/05/23 05:59 Not Given DAILY@0600 [facility] Insulin Human Regular 0 unit 11/06/22 12:34 11/06/22 14:51 Insulin Regular, Human 300 Unit/3 Ml SUBCUT 11/07/22 00:34 3 unit PROTOCOL PRN Administration High Blood Glucose Protocol Labetalol HCl 10 mg 11/04/22 16:32 11/04/22 21:41 Labetalol 100 Mg/20 Ml Vial IV-PUSH 11/04/23 16:31 10 mg Q10M PRN Administration Hypertension Levothyroxine Sodium 100 mcg 11/05/22 06:30 11/06/22 06:38 Levothyroxine 100 Mcg Tablet PO 11/05/23 06:29 Not Given DAILY@0630 [facility] Lidocaine HCl 0.1 ml 11/06/22 12:34 Lidocaine 1% 20 Ml Vial INTRADERMA 11/06/22 18:34 PREOP PRN Venipuncture Lorazepam 0.5 mg 11/06/22 16:51 11/06/22 17:11 Lorazepam 2 Mg/Ml Vial IV-PUSH 05/05/23 16:50 0.5 mg Q4H PRN Administration Agitation Nifedipine 90 mg 11/05/22 09:00 11/06/22 10:32 Nifedipine Er.24hr 90 Mg Tab.Er.24 PO 11/05/23 08:59 Not Given DAILY [facility] Pregabalin 50 mg 11/05/22 09:00 11/06/22 10:32 Pregabalin 50 Mg Capsule PO 05/04/23 08:59 Not Given DAILY [facility] Sodium Bicarbonate 1,300 mg 11/05/22 14:40 11/06/22 10:32 Sodium Bicarbonate 650 Mg Tablet PO 11/05/23 10:29 Not Given BID [facility] Sodium Chloride 0 ml 11/04/22 13:54 Sodium Chloride 0.9 % 10 Ml Syringe IV-PUSH 11/04/23 13:53 PRN PRN Flush Sodium Chloride 10 ml 11/06/22 16:51 11/06/22 17:11 Sodium Chloride 0.9 % 10 Ml Vial.Pf INJECTION 11/06/23 16:50 10 ml Q4H PRN Administration Ativan dilution Sodium Zirconium Cyclosilicate 15 gm 11/06/22 10:30 11/06/22 15:41 10 gm/ Sodium Zirconium PO 11/06/23 10:29 15 gm Cyclosilicate 5 gm DAILY [facility] Administration Trazodone HCl 50 mg 11/06/22 21:00 Trazodone 50 Mg Tablet PO 11/06/23 20:59 QHS [facility] Vitamin A 3,000 mcg 11/05/22 09:00 11/06/22 10:32 Vitamin A 3,000 Mcg (10,000 Units) Capsule PO 11/05/23 08:59 Not Given DAILY [facility] Vitamin D 50 mcg 11/05/22 09:00 11/06/22 10:32 Cholecalciferol 25 Mcg (1,000 Units) Tablet PO 11/05/23 08:59 Not Given DAILY [facility] Zinc Gluconate 50 mg 11/05/22 09:00 11/06/22 10:32 Zinc Gluconate 50 Mg Tablet PO 11/05/23 08:59 Not Given DAILY [facility] Documented By: Chintan Brewster DO 11/06/22 17 24 Signed By: <Electronically signed by Chintan Brewster DO> 11/06/22 1448 [facility] Work Phone: Progress note Author Masoud Maria [facility] November 07, 2022 8:40am Note Date/Time November 07, 2022 8:40 am [facility] [address] [place] [address] General Surgery Progress Note Signed Patient: Evans Forte MR#: [id number] : 1970 Acct:[id number] Age/Sex: 52 / M Adm Date: 3 Loc: Room: [address] [place] [address] Type: ADM IN Attending Dr: Chintan Brewster DO Copies to: ~ Date of Service: 11/07/2022 Subjective Subjective Patient reports: no new complaints HPI: Patient is sitting out of bed postop day #1 from PD dialysis insertion. He has no abdominal pain and is doing well. Allergies & Medications Medications and Allergies Allergies haloperidol [From Haldol] Adverse Reaction (Verified 11/06/22 00:55) Anxiety Home Medications atorvastatin 20 mg tablet (Lipitor) 20 mg PO DAILY 07/15/18 [History Confirmed 11/04/22] cholecalciferol (vitamin D3) 50 mcg (2,000 unit) capsule (Vitamin D3) 2,000 unitPO DAILY 06/17/19 [History Confirmed 11/04/22] ferrous sulfate 325 mg (65 mg iron) tablet (iron) 325 mg PO DAILY 07/22/19 [History Confirmed 11/04/22] fenofibrate nanocrystallized 145 mg tablet (Tricor) 145 mg PO DAILY 04/29/20 [History Confirmed 11/04/22] furosemide 40 mg tablet (Lasix) 40 mg PO DAILY 04/29/20 [History Confirmed 11/04/22] levothyroxine 100 mcg tablet (Synthroid) 100 mcg PO DAILY.AC.BKFAST 04/29/20 [History Confirmed 11/04/22] ascorbic acid (vitamin C) 100 mg tablet (Vitamin C) 100 mg PO DAILY 07/29/22 [History Confirmed 11/04/22] carvedilol 25 mg tablet 25 mg PO BID 07/29/22 [History Confirmed 11/04/22] hydralazine 25 mg tablet 25 mg PO BID 07/29/22 [History Confirmed 11/04/22] insulin regular hum U-500 conc 500 unit/mL(3 mL) subcut pen (Humulin R U-500 (Conc) Insulin Kwikpen) 45 unit subcut DAILY 07/29/22 [History Confirmed 11/04/22] insulin regular hum U-500 conc 500 unit/mL(3 mL) subcut pen (Humulin R U-500 (Conc) Insulin Kwikpen) 70 unit subcut QAM 07/29/22 [History Confirmed 11/04/22] vitamin A 2,400 mcg capsule 2,400 mcg PO DAILY 07/29/22 [History Confirmed 11/04/22] vitamin B complex 1 tab PO DAILY 07/29/22 [History Confirmed 11/04/22] zinc acetate 25 mg (zinc) capsule 25 mg PO DAILY 07/29/22 [History Confirmed 11/04/22] pregabalin 50 mg capsule (Lyrica) 50 mg PO DAILY 10/10/22 [History Confirmed 11/04/22] nifedipine 90 mg tablet,extended release 90 mg PO DAILY 11/04/22 [History Confirmed 11/04/22] Active Medications Hydrocodone Bitart/Acetaminophen (Hydrocodone/Acetaminophen 5-325 Mg Tablet) 1 tab PO Q4H PRN PRN Reason: Pain Last Admin: 11/06/22 18:38 Dose: 1 tab Hydrocodone Bitart/Acetaminophen (Hydrocodone/Acetaminophen 5-325 Mg Tablet) 2 tab PO Q4H PRN PRN Reason: pain Ascorbic Acid (Ascorbic Acid 500 Mg Tablet) 500 mg PO DAILY [facility] Stop: 11/05/23 08:59 Last Admin: 11/06/22 10:32 Dose: Not Given Atorvastatin Calcium (Atorvastatin 20 Mg Tablet) 20 mg PO DAILY [facility] Stop: 11/05/23 08:59 Last Admin: 11/06/22 10:32 Dose: Not Given Carvedilol (Carvedilol 25 Mg Tablet) 25 mg PO BID [facility] Stop: 11/04/23 20:59 Last Admin: 11/06/22 21:32 Dose: 25 mg Docusate Sodium (Docusate 100 Mg Capsule) 100 mg PO BID [facility] Stop: 11/06/23 20:59 Last Admin: 11/06/22 21:32 Dose: Not Given Emollient Ointment (Petrolatum,White 99 Gm Oint...G.) 1 applic TOPICAL DAILY [facility] Stop: 11/05/23 09:59 Last Admin: 11/07/22 05:55 Dose: 1 applic Fenofibrate (Fenofibrate Nanocrystallized 145 Mg Tablet) 145 mg PO DAILY [facility] Stop: 11/05/23 08:59 Last Admin: 11/05/22 08:48 Dose: 145 mg Ferrous Sulfate (Ferrous Sulfate 324 Mg Tablet.) 324 mg PO DAILY [facility] Stop: 11/05/23 08:59 Last Admin: 11/06/22 10:32 Dose: Not Given Folic Acid (Cyanocobalamin/Fa/Pyridoxine 1 Tab Tablet) 1 tab PO DAILY [facility] Stop: 11/05/23 08:59 Last Admin: 11/06/22 10:32 Dose: Not Given Heparin Sodium (Porcine) (Heparin 5,000 Unit/Ml Vial) 5,000 unit SUBCUT Q8HR [facility] Stop: 11/05/23 13:59 Last Admin: 11/07/22 05:53 Dose: 5,000 unit Hydralazine HCl (Hydralazine 20 Mg/Ml Vial) 10 mg IV-PUSH Q4H PRN PRN Reason: if SBP > 185 Stop: 11/04/23 23:30 Last Admin: 11/04/22 23:40 Dose: 10 mg Hydralazine HCl (Hydralazine 50 Mg Tablet) 50 mg PO TID [facility] Stop: 11/05/23 05:59 Last Admin: 11/06/22 21:32 Dose: 50 mg Sodium Chloride (0.9% Sodium Chloride 500 Ml) 500 mls @ 20 mls/hr IV ONCE ONE Stop: 11/07/22 10:00 Last Admin: 11/06/22 10:37 Dose: 20 mls/hr Ferric Sodium Gluconate Complex 250 mg/ Sodium Chloride 270 mls @ 135 mls/hr IVQAM [facility] Stop: 11/09/22 09:01 Last Infusion: 11/06/22 13:03 Dose: Infused Insulin Human Regular (Insulin Regular U-500, Human 1,500 Unit/3 Ml Insuln.Pen) 45 unit SUBCUT DAILY@1700 [facility] Stop: 11/05/23 16:59 Last Admin: 11/06/22 17:13 Dose: 45 unit Insulin Human Regular (Insulin Regular U-500, Human 1,500 Unit/3 Ml Insuln.Pen) 70 unit SUBCUT DAILY@0600 [facility] Stop: 11/05/23 05:59 Last Admin: 11/07/22 05:54 Dose: 70 unit Labetalol HCl (Labetalol 100 Mg/20 Ml Vial) 10 mg IV-PUSH Q10M PRN PRN Reason: Hypertension Stop: 11/04/23 16:31 Last Admin: 11/04/22 21:41 Dose: 10 mg Levothyroxine Sodium (Levothyroxine 100 Mcg Tablet) 100 mcg PO DAILY@0630 [facility] Stop: 11/05/23 06:29 Last Admin: 11/07/22 05:55 Dose: 100 mcg Lorazepam (Lorazepam 2 Mg/Ml Vial) 0.5 mg IV-PUSH Q4H PRN PRN Reason: Agitation Stop: 05/05/23 16:50 Last Admin: 11/06/22 17:11 Dose: 0.5 mg Nifedipine (Nifedipine Er.24hr 90 Mg Tab.Er.24) 90 mg PO DAILY [facility] Stop: 11/05/23 08:59 Last Admin: 11/06/22 10:32 Dose: Not Given Pregabalin (Pregabalin 50 Mg Capsule) 50 mg PO DAILY [facility] Stop: 05/04/23 08:59 Last Admin: 11/06/22 10:32 Dose: Not Given Sodium Bicarbonate (Sodium Bicarbonate 650 Mg Tablet) 1,300 mg PO BID [facility] Stop: 11/05/23 10:29 Last Admin: 11/06/22 21:32 Dose: 1,300 mg Sodium Chloride (Sodium Chloride 0.9 % 10 Ml Syringe) 0 ml IV-PUSH PRN PRN PRN Reason: Flush Stop: 11/04/23 13:53 Sodium Chloride (Sodium Chloride 0.9 % 10 Ml Vial.Pf) 10 ml INJECTION Q4H PRN PRN Reason: Ativan dilution Stop: 11/06/23 16:50 Last Admin: 11/06/22 17:11 Dose: 10 ml Sodium Zirconium Cyclosilicate 10 gm/ Sodium Zirconium Cyclosilicate 5 gm 15 gmPO DAILY [facility] Stop: 11/06/23 10:29 Last Admin: 11/06/22 15:41 Dose: 15 gm Trazodone HCl (Trazodone 50 Mg Tablet) 50 mg PO QHS [facility] Stop: 11/06/23 20:59 Last Admin: 11/06/22 21:32 Dose: 50 mg Vitamin A (Vitamin A 3,000 Mcg (10,000 Units) Capsule) 3,000 mcg PO DAILY [facility] Stop: 11/05/23 08:59 Last Admin: 11/06/22 10:32 Dose: Not Given Vitamin D (Cholecalciferol 25 Mcg (1,000 Units) Tablet) 50 mcg PO DAILY [facility] Stop: 11/05/23 08:59 Last Admin: 11/06/22 10:32 Dose: Not Given Zinc Gluconate (Zinc Gluconate 50 Mg Tablet) 50 mg PO DAILY [facility] Stop: 11/05/23 08:59 Last Admin: 11/06/22 10:32 Dose: Not Given Exam Physical Exam Vital Signs: Temp Pulse Resp BP Pulse Ox O2 Del Method O2 Flow Rate 97.9 F 84 16 184/84 H 97 Room Air 3 11/07/22 08:00 11/07/22 08:00 11/07/22 08:00 11/07/22 08:00 11/07/22 08:00 11/07/22 08:00 11/06/22 14:55 GI Inspection: normal to inspection, non-distended and incision (No bleeding at incision sites) Auscultation: normal bowel sounds Objective Pain Assessment Abdomen: Pain Intensity: 4 Intake & Output 24 hour I&O: Intake & Output 11/06/22 11/07/22 11/07/22 23:59 07:59 15:59 Intake Total 650 / 2260 400 / 400 Balance 650 / 2260 400 / 400 Weight 144.9 kg Labs 11/07/22 04:37 11/07/22 04:37 Laboratory Results - Last 48 hrs. 11/07/22 07:04: POC Glucose 283, POC Glucose Comment Glu2: cleaned meter 11/07/22 04:37: PHA Creatinine Clear 19.89, Sodium 134 L, Potassium 6.0 H, Chloride 110, Carbon Dioxide 17.1 L, Anion Gap 12.9, BUN 69 H, Creatinine 6.67 H, EstGFR ( Amer) 11, Est GFR (Non-Af Amer) 9, Glucose 340 H D, Calcium 8.3 11/07/22 04:37: Corrected WBC 12.4 H, Uncorrected WBC Count 12.4 H, RBC 2.97 L, Hgb 8.8 L, Hct 27.0 L, MCV 90.8, MCH 29.7, MCHC 32.7, RDW 14.2, Plt Count 399, MPV 7.1, Neut % (Auto) 87.5, Lymph % (Auto) 5.8, Addison % (Auto) 6.5, Eos % (Auto)0.1, Baso % (Auto) 0.1, Nucleat RBC Rel Count 0.1, Neut # (Auto) 10.9 H, Lymph #(Auto) 0.7 L, Addison # (Auto) 0.8, Eos # (Auto) 0.0, Baso # (Auto) 0.0 11/07/22 01:35: POC Glucose 419 H*, POC Glucose Comment 11/07/22 01:33: POC Glucose 445 H*, POC Glucose Comment Will repeat test 11/06/22 21:30: POC Glucose 383 11/06/22 15:35: POC Glucose 237, POC Glucose Comment Glu2: cleaned meter 11/06/22 14:50: POC Glucose 228 11/06/22 12:32: POC Glucose 204, POC Glucose Comment Glu2: cleaned meter 11/06/22 04:25: PHA Creatinine Clear 20.28, Sodium 137, Potassium 5.5 H, Chloride 113, Carbon Dioxide 17.9 L, Anion Gap 11.6, BUN 63 H, Creatinine 6.54 H, Est GFR ( Amer) 11, Est GFR (Non-Af Amer) 9, Glucose 142 H, Calcium 8.4, Iron 38 L, TIBC 315, Iron Saturation 12.1 L, Transferrin 225, Ferritin 363.1 H, Folate 11.5 11/06/22 04:25: Corrected WBC 13.3 H, Uncorrected WBC Count 13.3 H, RBC 3.08 L, Hgb 9.2 L, Hct 28.1 L, MCV 91.1, MCH 30.0, MCHC 32.9, RDW 14.3, Plt Count 389, MPV 6.9, Neut % (Auto) 74.7, Lymph % (Auto) 13.3, Addison % (Auto) 9.0, Eos % (Auto) 2.5, Baso % (Auto) 0.5, Nucleat RBC Rel Count 0.1, Neut # (Auto) 10.0 H, Lymph # (Auto) 1.8, Addison # (Auto) 1.2 H, Eos # (Auto) 0.3, Baso # (Auto) 0.1 11/05/22 20:28: POC Glucose 185 11/05/22 17:20: POC Glucose 165, POC Glucose Comment Glu2: cleaned meter 11/05/22 17:16: SARS-CoV-2 Rap RNA(RT-PCR) Negative 11/05/22 12:16: POC Glucose 156, POC Glucose Comment Glu2: cleaned meter A&P - General Surgery Assessment/Plan (1) Acute kidney injury superimposed on CKD: Plan: Postop day #1 from PD catheter insertion. He is doing well, the catheter may beused. We will sign off the case at this time. Code(s): N17.9 - Acute kidney failure, unspecified; N18.9 - Chronic kidney disease, unspecified Status: Acute Documented By: Masoud Maria DO 11/07/22 08 38 Signed By: <Electronically signed by Masoud Maria DO> 11/07/22 0840 [facility] Work Phone: Progress note Author Yocasta Villalba [facility] November 07, 2022 2:43pm Note Date/Time November 07, 2022 2:43 pm [facility] [address] [place] [address] Nephrology Progress Note Signed Patient: Evans Forte MR#: [id number] : 1970 Acct:[id number] Age/Sex: 52 / M Adm Date: 3 Loc: Room: [address] [place] [address] Type: ADM IN Attending Dr: Chintan Brewster DO Copies to: ~ Date of Service: 11/07/2022 Subjective Subjective Narrative: This is a 52-year-old male patient with a past sickle history of chronic kidney disease stage V from diabetic nephropathy, hypertension, morbid obesity, anemia of renal disease, neuropathy. 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 Patient is known to Dr. Waters and he has been following with him for CKD stage V. Lab workin the emergency room showed potassium 5.3 mmol/L. Patient was giving calcium chloride along with Lokelma and 1 dose of the Lasix. Patient also started on IVfluid normal saline 75 cc/h. Serum potassium this morning 4.6 mmol/L. Renal team was consulted for CKD stage V, hypertension and electrolyte imbalance management. Noted high blood pressure this morning. Patient has been on the same home medications Coreg, hydralazine, nifedipine. Noted metabolic acidosis with serum bicarb level 16.7 mmol/L Patient denied nausea vomiting. He has mild edema of lower extremity. No itchiness no chest pain. No cough. Has been having nasal congestion with headache for the last few days. Noted mild fever this morning. White cell count 13 Interval history: Patient was seen examined his room. PD catheter was placed yesterday. Patient has mild pain at the surgical site Patient was not given Lokelma yesterday after PD catheter placement. Potassium up to 6 mmol/L Serum creatinine slightly stable from yesterday at 6.6 mg deciliter and GFR 9 hemoglobin. Denied nausea vomiting. No shortness of breath. No metallic taste. No asterixis. No chest pain. Respiratory status low at 12%. Patient started on loading dose of Ferrlecit 250mg x4 Noted high blood pressure. Exam Physical Exam Vital Signs: Temp Pulse Resp BP Pulse Ox O2 Del Method O2 Flow Rate 97.8 F 82 16 186/89 H 97 Room Air 3 11/07/22 11:21 11/07/22 11:21 11/07/22 11:21 11/07/22 12:12 11/07/22 11:21 11/07/22 11:21 11/06/22 14:55 Narrative: General: No acute distress Head :atraumatic normocephalic Eyes: PERRLA. Neck: no JVD no bruit. Heart: S1-S2. RRR Respiratory: Clear to auscultation. No wheezing. No crackles Abdomen: Soft, positive bowel sounds,no tenderness. PD catheter in place Neurology: Awake alert oriented x3. No focal deficits Extremity. No cyanosis. Trace edema of lower extremities Skin: No skin rash Objective Intake and Output I&O: Intake & Output 11/04/22 11/05/22 11/06/22 11/07/22 23:59 23:59 23:59 23:59 Intake Total 1860 / 1860 2260 / 2260 1050 / 1050 Balance 1860 / 1860 2260 / 2260 1050 / 1050 Weight 145 kg 145 kg 144.9 kg Meds and Allergies Meds: Active Medications Hydrocodone Bitart/Acetaminophen (Hydrocodone/Acetaminophen 5-325 Mg Tablet) 1 tab PO Q4H PRN PRN Reason: Pain Last Admin: 11/06/22 18:38 Dose: 1 tab Hydrocodone Bitart/Acetaminophen (Hydrocodone/Acetaminophen 5-325 Mg Tablet) 2 tab PO Q4H PRN PRN Reason: pain Ascorbic Acid (Ascorbic Acid 500 Mg Tablet) 500 mg PO DAILY VINCE Stop: 11/05/23 08:59 Last Admin: 11/07/22 08:38 Dose: 500 mg Atorvastatin Calcium (Atorvastatin 20 Mg Tablet) 20 mg PO DAILY VINCE Stop: 11/05/23 08:59 Last Admin: 11/07/22 08:37 Dose: 20 mg Carvedilol (Carvedilol 25 Mg Tablet) 25 mg PO BID VINCE Stop: 11/04/23 20:59 Last Admin: 11/07/22 08:38 Dose: 25 mg Docusate Sodium (Docusate 100 Mg Capsule) 100 mg PO BID VINCE Stop: 11/06/23 20:59 Last Admin: 11/07/22 08:40 Dose: Not Given Emollient Ointment (Petrolatum,White 99 Gm Oint...G.) 1 applic TOPICAL DAILY VINCE Stop: 11/05/23 09:59 Last Admin: 11/07/22 08:39 Dose: 1 applic Fenofibrate (Fenofibrate Nanocrystallized 145 Mg Tablet) 145 mg PO DAILY VINCE Stop: 11/05/23 08:59 Last Admin: 11/07/22 08:37 Dose: 145 mg Ferrous Sulfate (Ferrous Sulfate 324 Mg Tablet.Dr) 324 mg PO DAILY VINCE Stop: 11/05/23 08:59 Last Admin: 11/07/22 08:38 Dose: 324 mg Folic Acid (Cyanocobalamin/Fa/Pyridoxine 1 Tab Tablet) 1 tab PO DAILY VINCE Stop: 11/05/23 08:59 Last Admin: 11/07/22 08:38 Dose: 1 tab Furosemide (Furosemide 40 Mg/4 Ml Vial) 40 mg IV-PUSH DAILY.8A VINCE Stop: 11/07/23 09:54 Last Admin: 11/07/22 11:23 Dose: 40 mg Heparin Sodium (Porcine) (Heparin 5,000 Unit/Ml Vial) 5,000 unit SUBCUT Q8HR VINCE Stop: 11/05/23 13:59 Last Admin: 11/07/22 13:45 Dose: 5,000 unit Hydralazine HCl (Hydralazine 20 Mg/Ml Vial) 10 mg IV-PUSH Q4H PRN PRN Reason: if SBP > 185 Stop: 11/04/23 23:30 Last Admin: 11/07/22 12:13 Dose: 10 mg Hydralazine HCl (Hydralazine 50 Mg Tablet) 100 mg PO TID [facility] Stop: 11/07/23 13:59 Last Admin: 11/07/22 13:44 Dose: 100 mg Ferric Sodium Gluconate Complex 250 mg/ Sodium Chloride 270 mls @ 135 mls/hr IVQAM [facility] Stop: 11/09/22 09:01 Last Admin: 11/07/22 09:49 Dose: 135 mls/hr Insulin Human Regular (Insulin Regular U-500, Human 1,500 Unit/3 Ml Insuln.Pen) 45 unit SUBCUT DAILY@1700 [facility] Stop: 11/05/23 16:59 Last Admin: 11/06/22 17:13 Dose: 45 unit Insulin Human Regular (Insulin Regular U-500, Human 1,500 Unit/3 Ml Insuln.Pen) 70 unit SUBCUT DAILY@0600 [facility] Stop: 11/05/23 05:59 Last Admin: 11/07/22 05:54 Dose: 70 unit Labetalol HCl (Labetalol 100 Mg/20 Ml Vial) 10 mg IV-PUSH Q10M PRN PRN Reason: Hypertension Stop: 11/04/23 16:31 Last Admin: 11/04/22 21:41 Dose: 10 mg Levothyroxine Sodium (Levothyroxine 100 Mcg Tablet) 100 mcg PO DAILY@0630 [facility] Stop: 11/05/23 06:29 Last Admin: 11/07/22 05:55 Dose: 100 mcg Lorazepam (Lorazepam 2 Mg/Ml Vial) 0.5 mg IV-PUSH Q4H PRN PRN Reason: Agitation Stop: 05/05/23 16:50 Last Admin: 11/06/22 17:11 Dose: 0.5 mg Nifedipine (Nifedipine Er.24hr 90 Mg Tab.Er.24) 90 mg PO DAILY [facility] Stop: 11/05/23 08:59 Last Admin: 11/07/22 08:39 Dose: 90 mg Pregabalin (Pregabalin 50 Mg Capsule) 50 mg PO DAILY [facility] Stop: 05/04/23 08:59 Last Admin: 11/07/22 08:38 Dose: 50 mg Sodium Bicarbonate (Sodium Bicarbonate 650 Mg Tablet) 1,300 mg PO BID VINCE Stop: 11/05/23 10:29 Last Admin: 11/07/22 08:38 Dose: 1,300 mg Sodium Chloride (Sodium Chloride 0.9 % 10 Ml Syringe) 0 ml IV-PUSH PRN PRN PRN Reason: Flush Stop: 11/04/23 13:53 Last Admin: 11/07/22 12:14 Dose: 20 ml Sodium Chloride (Sodium Chloride 0.9 % 10 Ml Vial.Pf) 10 ml INJECTION Q4H PRN PRN Reason: Ativan dilution Stop: 11/06/23 16:50 Last Admin: 11/06/22 17:11 Dose: 10 ml Sodium Zirconium Cyclosilicate (Sodium Zirconium Cyclosilicate 10 Gm Powd.Pack) 10 gm PO TID VINCE Stop: 11/07/23 13:59 Last Admin: 11/07/22 13:44 Dose: 10 gm Trazodone HCl (Trazodone 50 Mg Tablet) 50 mg PO QHS VINCE Stop: 11/06/23 20:59 Last Admin: 11/06/22 21:32 Dose: 50 mg Vitamin A (Vitamin A 3,000 Mcg (10,000 Units) Capsule) 3,000 mcg PO DAILY VINCE Stop: 11/05/23 08:59 Last Admin: 11/07/22 08:38 Dose: 3,000 mcg Vitamin D (Cholecalciferol 25 Mcg (1,000 Units) Tablet) 50 mcg PO DAILY VINCE Stop: 11/05/23 08:59 Last Admin: 11/07/22 08:37 Dose: 50 mcg Zinc Gluconate (Zinc Gluconate 50 Mg Tablet) 50 mg PO DAILY VINCE Stop: 11/05/23 08:59 Last Admin: 11/07/22 08:39 Dose: 50 mg Allergies haloperidol [From Haldol] Adverse Reaction (Verified 11/06/22 00:55) Anxiety Results Labs 11/07/22 04:37 11/07/22 04:37 Labs: 11/07/22 04:37 BUN 69 H Creatinine 6.67 H Radiology Impressions Impressions - last 24 hours: Any impression(s) listed above is documentation that was entered by the reading physician into a diagnostic report(s) for Evans Forte. I have reviewed the report(s) and am incorporating any findings in the treatment plan of this patient where applicable. A&P - Nephrology Assessment/Plan (1) CKD (chronic kidney disease) stage 5, GFR less than 15 ml/min: Plan: Patient is known to Dr. 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 Patient has reached end-stage disease and he needs to be on renal placement therapy. Patient has opted for peritoneal dialysis. I consulted general surgeon for PD catheter placement. PD catheter was placed November 06 Thereis no urgent need to start renal placement therapy. I believe the patient can wait 2 weeks to start t PD training (2) Insulin dependent diabetes mellitus: Plan: Patient has diabetes for many years. Currently on insulin as directed by the primary service (3) Hypertensive chronic kidney disease with stage 1 through stage 4 chronic kidney disease, or unspecified chronic kidney disease: Plan: Likely due to CKD progression. Volume status is well controlled. Blood pressurehas been elevated. I will increase hydralazine to 100 mg 3 times daily and start taking Lasix 40 mg daily. Continue to monitor blood pressure and adjust blood pressure medications as (4) Hyperkalemia: Plan: Likely from metabolic acidosis and advanced CKD. Patient was not given Lokelma yesterday. Potassium level is 6.0 mmol/L. I will give the patient 1 dose of 40Lasix IV and start again Lokelma 10 mg 3 times daily. I will check potassium level later today (5) Metabolic acidosis: Plan: Likely from advanced CKD. Continue sodium bicarb dose at 1300 mg twice daily. Check serum bicarb level in a.m. Documented By: Yocasta Villalba MD 11/07/22 1432 Signed By: <Electronically signed by Yocasta Villalba MD> 11/07/22 1492 [facility] Work Phone: Progress note Author Arnol Calloway [facility] November 21, 2023 5:52pm Note Date/Time November 21, 2023 11: 07am [facility] [address] [place] [address] Hospitalist Progress Note Signed Patient: Evans Forte MR#: [id number] : 1970 Acct:[id number] Age/Sex: 53 / M Adm Date: 4 Loc: 3T Room: [address] [place] [address] Type: ADM IN Attending Dr: Arnol Calloway MD Copies to: ~ Date of Service: 11/21/2023 Subjective Subjective Narrative: Patient is seen and examined. His spouse is present in the room. He is sittingup on the couch indicates he is feeling better. States overall he felt unwell/ill and was diaphoretic at home with no specific complaints otherwise. Patient reports chronic wound right lateral medial aspect with prior Charcot deformity there posterior repair with hardware in place for over a year, also with reported chronic wound over 2 years plantar aspect of foot as well as wartson the bottom of his foot?indicates that this area has recently been healed. Patient indicates he has chronic pain and wound pain of the foot as well as neuropathy. Follows with Dr. Fonseca/podiatry in [place] but indicates has not had vascular studies in the past. Exam Physical Exam Vital Signs: Temp Pulse Resp BP Pulse Ox O2 Del Method 98.4 F 82 16 137/74 97 Room Air 11/21/23 07:48 11/21/23 07:48 11/21/23 07:48 11/21/23 07:48 11/21/23 07:48 11/21/23 07:50 Narrative: CONST- alert, seated on couch in room, no distress at rest CARD- RRR no abnormal heart tones PULM- dimin without wheeze or rhonchi, RA ABD- S/NT, NABS, morbid obesity EXTREM-trace edema BLE, calves nontender, pedal is palpable Skin?venous stasis discoloration mid ritter down, right foot with dressing in place with reported plantar surface and medial lateral surface wounds- refer to wound documentation for measurements description, there is scabbed areas on bilateral anterior shins. Tunneled dialysis catheter right chest. Left wrist fistula with good thrill and healing with scabbed area Objective Lab Results 11/21/23 05:37 11/21/23 05:37 Microbiology Results Microbiology 11/20/23 19:04 Nasopharyngeal Respiratory Panel (PCR) - Final Meds Allergies and Active Meds Allergies latex Allergy (Mild, Verified 11/20/23 18:45) Rash vancomycin Allergy (Unknown, Verified 11/20/23 18:45) Rash haloperidol [From Haldol] Adverse Reaction (Verified 11/20/23 18:45) Anxiety Active Meds: Active Medications Generic Name Dose Route Start Last Admin Trade Name Rachel PRN Reason Stop Dose Admin Acetaminophen 650 mg 11/20/23 21:03 Acetaminophen 325 Mg Tablet PO 11/19/24 21:02 Q6HR PRN Pain Scale 1 - 3 or fever Anastrozole 1 mg 11/21/23 09:00 11/21/23 08:00 Anastrozole 1 Mg Tablet PO 11/20/24 08:59 1 mg QAM VINCE Administration Atorvastatin Calcium 20 mg 11/21/23 09:00 11/21/23 08:00 Atorvastatin 20 Mg Tablet PO 11/20/24 08:59 20 mg QAM VINCE Administration Calcitriol 0.25 mcg 11/23/23 09:00 Calcitriol 0.25 Mcg Capsule PO 11/22/24 08:59 TuThSa@0900 VINCE Calcium Acetate 2,668 mg 11/21/23 07:30 11/21/23 07:54 Calcium Acetate 667 Mg Capsule PO 11/20/24 07:29 2,668 mg AC VINCE Administration Cyanocobalamin 1,000 mcg 11/21/23 09:00 11/21/23 08:00 Cyanocobalamin 1,000 Mcg Tablet PO 11/20/24 08:59 1,000 mcg DAILY VINCE Administration Heparin Sodium (Porcine) 5,000 unit 11/21/23 09:00 11/21/23 08:00 Heparin 5,000 Unit/Ml Vial SUBCUT 11/20/24 08:59 5,000 unit Q12HR VINCE Administration Linezolid 600 mg in 300 mls @ 300 mls/hr 11/21/23 09:30 11/21/23 09:06 Zyvox IV 300 mls/hr Q12H VINCE Administration Ceftriaxone Sodium 2 gm in 50 mls @ 100 mls/hr 11/21/23 20:00 Rocephin IV Q24H VINCE Insulin Human Regular 50 unit 11/21/23 09:00 11/21/23 08:00 Insulin Regular U-500, Human 1,500 Unit/3 Ml Insuln.Pen SUBCUT 11/20/24 08:59 50 unit BID VINCE Administration Levothyroxine Sodium 100 mcg 11/21/23 06:30 11/21/23 05:39 Levothyroxine 100 Mcg Tablet PO 11/20/24 06:29 100 mcg DAILY.0630 VINCE Administration Melatonin 5 mg 11/20/23 21:03 Melatonin 5 Mg Tablet PO 11/19/24 21:02 QHS PRN Insomnia Morphine Sulfate 2 mg 11/20/23 21:03 11/21/23 00:25 Morphine Sulfate 2 Mg/Ml Vial IV-PUSH 2 mg Q4H PRN Administration Pain Scale 8 - 10 Testosterone 1 % (50 1 packet 11/21/23 09:00 11/21/23 10:14 Mg/5 Gram) Gel In TRANSDERML 11/20/24 08:59 Not Given Packet DAILY VINCE Tirzepatide [ 5 mg 11/30/23 09:00 Mounjaro] 5 Mg/0.5 SUBCUT 11/29/24 08:59 Ml Pen Injector Tu@0900 VINCE Ondansetron HCl 4 mg 11/20/23 21:03 Ondansetron 4 Mg/2 Ml Vial IV-PUSH 11/19/24 21:02 Q8H PRN Nausea And Vomiting Pregabalin 150 mg 11/21/23 09:00 11/21/23 08:00 Pregabalin 150 Mg Capsule PO 05/19/24 08:59 150 mg BID VINCE Administration Sodium Chloride 0 ml 11/20/23 18:44 11/20/23 19:10 Sodium Chloride 0.9 % 10 Ml Syringe IV-PUSH 11/19/24 18:43 10 ml PRN PRN Administration Flush Trazodone HCl 50 mg 11/20/23 22:32 Trazodone 50 Mg Tablet PO 11/19/24 22:31 QHS PRN insomnia A&P - Hospitalist Assessment/Plan (1) Sepsis: (2) Hypomagnesemia: (3) Anemia of renal disease: (4) End stage renal disease: (5) Metabolic acidosis: (6) Insulin dependent diabetes mellitus: (7) Hypertension: (8) Diabetes mellitus due to underlying condition, controlled, with diabetic neuropathy: (9) Diabetic ulcer of foot associated with diabetes mellitus due to underlying condition, with fat layer exposed: Plan Sepsis?specific source unclear possible dialysis catheter or foot wounds Chronic right foot wounds present on admit, hx Charcot deformity repair hardwarepresent Presence of tunneled hemodialysis catheter right chest placed 09/16/2023- last accessed 11/20/23 Recent left forearm fistula placement 10/06/2023- not in use yet Recent removal PD catheter abdomen 10/27/2023 -On admit?WBC 19.5, BP 99/56, heart rate 114, lactic acid 1.7. Afebrile. Not given fluid resuscitation due to ESRD with concern for volume overload per documentation -Ceftriaxone, linezolid -peripheral Blood cultures Pending, CXR nonacute, urine culture pending -right foot xray pending, may need MRI r/o osteo -Podiatry consult -hold furosemide and carvedilol for now with sepsis -wound care -patient would benefit from vascular workup of right lower extremity with chronic wounds. MADDI ordered, consider vascular consult dependent on results -ID consult for recommendations -continues pregabalin for neuropathy pain, add tramadol -patient states he takes zinc daily, IV iron monthly. Add Vit C for wound healing. Check prealbumin. Dietitian consult ESRD on hemodialysis // Anemia of CKD Metabolic Acidosis -Nephrology on consult for further management Hypomagnesemia -repleted, trend Chronic conditions 1. HTN, HLD?atorvastatin. Home Carvedilol and furosemide on hold with sepsis 2. T2DM with neuropathy? U500 insulin, pregabalin; hold tirzepatide. Check A1c. SSI coverage and fingerstick 3. Hypothyroid?levothyroxine 4. Morbid obesity, GUSTAVO Attending attestation: Patient was personally seen by me on the day of encounter. I reviewed his history and performed ceja elements of exam and formulated the plan of care and confirmed the nurse practitioner's note above. Documented By: Yasmin Winchester APRN 11/04 03/29 1107 Signed By: <Electronically signed by HARSH Winchester> 11/21/23 1532 <Electronically signed by Arnol Calloway MD> 11/21/23 1755 [facility] Work Phone: Progress note Author Amy Escudero [facility] November 22, 2023 12:45pm Note Date/Time November 22, 2023 10: 37am [facility] [address] [place] [address] Hospitalist Progress Note Signed Patient: Evans Forte MR#: [id number] : 1970 Acct:[id number] Age/Sex: 53 / M Adm Date: 4 Loc: 3T Room: [address] [place] [address] Type: ADM IN Attending Dr: Amy Escudero DO Copies to: ~ Date of Service: 11/22/2023 Subjective Subjective Narrative: Seen and examined at bedside, no acute events overnight, resting quietly in bed. Reports improved pain to right lower extremity, still has some redness to the right lower extremity, unable to see wound at this time. Dressing just got changed by wound care. Denies dizziness, nausea vomiting. Afebrile. Exam Physical Exam Vital Signs: Temp Pulse Resp BP Pulse Ox O2 Del Method 97.8 F 70 18 116/65 95 Room Air 11/22/23 07:41 11/22/23 07:41 11/22/23 07:41 11/22/23 07:41 11/22/23 07:41 11/22/23 07:43 Narrative: CONST-alert, awake resting comfortably in bed CARDIAC-normal rate, regular rhythm, normal S1 & S2. PULM-diminished without wheeze or rhonchi, RA, no accessory muscle use or cough noted ABD - Soft. Bowel sounds are normal. No distention No tenderness EXTREM-no edema BLE calves nontender SKIN-erythema to right lower extremity. Dressing intact to right foot Objective Lab Results 11/22/23 06:16 11/22/23 06:16 Microbiology Results Microbiology 11/21/23 10:56 Urine - Clean-Voided Midstream Urine Culture - Preliminary No Growth 1 Day 11/20/23 19:19 Blood - Right Antecubital Blood Culture - Preliminary No Growth 1 Day 11/20/23 19:00 Blood - Right Hand Blood Culture - Preliminary No Growth 1 Day Meds Allergies and Active Meds Allergies latex Allergy (Mild, Verified 11/20/23 18:45) Rash vancomycin Allergy (Unknown, Verified 11/20/23 18:45) Rash haloperidol [From Haldol] Adverse Reaction (Verified 11/20/23 18:45) Anxiety Active Meds: Active Medications Generic Name Dose Route Start Last Admin Trade Name Freq PRN Reason Stop Dose Admin Acetaminophen 650 mg 11/20/23 21:03 Acetaminophen 325 Mg Tablet PO 11/19/24 21:02 Q6HR PRN Pain Scale 1 - 3 or fever Anastrozole 1 mg 11/21/23 09:00 11/22/23 08:14 Anastrozole 1 Mg Tablet PO 11/20/24 08:59 1 mg QAM VINCE Administration Atorvastatin Calcium 20 mg 11/21/23 09:00 11/22/23 08:13 Atorvastatin 20 Mg Tablet PO 11/20/24 08:59 20 mg QAM VINCE Administration Calcitriol 0.25 mcg 11/23/23 09:00 Calcitriol 0.25 Mcg Capsule PO 11/22/24 08:59 TuThSa@0900 VINCE Calcium Acetate 2,668 mg 11/21/23 07:30 11/22/23 08:13 Calcium Acetate 667 Mg Capsule PO 11/20/24 07:29 2,668 mg AC VINCE Administration Cyanocobalamin 1,000 mcg 11/21/23 09:00 11/22/23 08:13 Cyanocobalamin 1,000 Mcg Tablet PO 11/20/24 08:59 1,000 mcg DAILY VINCE Administration Heparin Sodium (Porcine) 5,000 unit 11/21/23 09:00 11/22/23 08:14 Heparin 5,000 Unit/Ml Vial SUBCUT 11/20/24 08:59 5,000 unit Q12HR VINCE Administration Linezolid 600 mg in 300 mls @ 300 mls/hr 11/21/23 09:30 11/22/23 08:58 Zyvox IV 300 mls/hr Q12H VINCE Administration Ceftriaxone Sodium 2 gm in 50 mls @ 100 mls/hr 11/21/23 20:00 11/21/23 19:41 Rocephin IV 100 mls/hr Q24H VINCE Administration Insulin Aspart 0 units 11/21/23 16:30 11/22/23 08:13 Insulin Aspart 300 Units/3 Ml Insuln.Pen SUBCUT 11/20/24 16:29 Not Given ACHS [facility] Protocol Insulin Human Regular 50 unit 11/21/23 09:00 11/22/23 08:16 Insulin Regular U-500, Human 1,500 Unit/3 Ml Insuln.Pen SUBCUT 11/20/24 08:59 50 unit BID VINCE Administration Levothyroxine Sodium 100 mcg 11/21/23 06:30 11/22/23 05:29 Levothyroxine 100 Mcg Tablet PO 11/20/24 06:29 100 mcg DAILY.0630 VINCE Administration Melatonin 5 mg 11/20/23 21:03 Melatonin 5 Mg Tablet PO 11/19/24 21:02 QHS PRN Insomnia Morphine Sulfate 2 mg 11/20/23 21:03 11/21/23 19:41 Morphine Sulfate 2 Mg/Ml Vial IV-PUSH 2 mg Q4H PRN Administration Pain Scale 8 - 10 Testosterone 1 % (50 1 packet 11/21/23 09:00 11/21/23 10:14 Mg/5 Gram) Gel In TRANSDERML 11/20/24 08:59 Not Given Packet DAILY VINCE Tirzepatide [ 5 mg 11/30/23 09:00 Mounjaro] 5 Mg/0.5 SUBCUT 11/29/24 08:59 Ml Pen Injector Tu@0900 VINCE Ondansetron HCl 4 mg 11/20/23 21:03 Ondansetron 4 Mg/2 Ml Vial IV-PUSH 11/19/24 21:02 Q8H PRN Nausea And Vomiting Pregabalin 150 mg 11/21/23 09:00 11/22/23 08:14 Pregabalin 150 Mg Capsule PO 05/19/24 08:59 150 mg BID VINCE Administration Sodium Chloride 0 ml 11/20/23 18:44 11/21/23 11:14 Sodium Chloride 0.9 % 10 Ml Syringe IV-PUSH 11/19/24 18:43 10 ml PRN PRN Administration Flush Tramadol HCl 50 mg 11/21/23 15:21 Tramadol 50 Mg Tablet PO 05/19/24 15:16 Q12H PRN Pain Trazodone HCl 50 mg 11/20/23 22:32 11/21/23 21:19 Trazodone 50 Mg Tablet PO 11/19/24 22:31 50 mg QHS PRN Administration insomnia A&P - Hospitalist Assessment/Plan (1) Sepsis: (2) Hypomagnesemia: (3) Anemia of renal disease: (4) End stage renal disease: (5) Metabolic acidosis: (6) Insulin dependent diabetes mellitus: (7) Hypertension: (8) Diabetes mellitus due to underlying condition, controlled, with diabetic neuropathy: (9) Diabetic ulcer of foot associated with diabetes mellitus due to underlying condition, with fat layer exposed: Plan Sepsis?source unclear, suspecting from right lower extremity cellulitis Chronic right foot wounds present on admit, hx Charcot deformity repair hardwarepresent Presence of tunneled hemodialysis catheter right chest placed 09/16/2023- last accessed 11/20/23, does not look infectious Recent left forearm fistula placement 10/06/2023- not in use yet Recent removal PD catheter abdomen 10/27/2023 Leukocytosis?resolved * Leukocytosis resolved, continues to be afebrile * Continues on ceftriaxone and linezolid, blood cultures and urine culture with no growth in 1 day * Foot x-ray with no acute bony injury. No osteolytic or bony destructive process. Diffuse soft tissue swelling, suggestive of cellulitis * Podiatry and infectious disease consult pending * Furosemide and carvedilol initially held due to sepsis, blood pressure improved will restart * Continue zinc, vitamin C for wound healing * Continue wound care and pain management as needed * would benefit from vascular workup of right lower extremity with chronic woun ds. MADDI ordered, consider vascular consult dependent on results ESRD on hemodialysis Anemia of CKD Metabolic Acidosis -Nephrology on consult for further management * On IV iron monthly Hypomagnesemia -repleted, trend Chronic conditions 1. HTN, HLD?atorvastatin. Home Carvedilol and furosemide on hold with sepsis 2. T2DM with neuropathy? U500 insulin, pregabalin; hold tirzepatide. Check A1c. SSI coverage and fingerstick 3. Hypothyroid?levothyroxine 4. Morbid obesity, GUSTAVO Attending attestation: Patient was personally seen by me on the day of encounter. I reviewed his history and performed ceja elements of exam and formulated the plan of care and confirmed the nurse practitioner's note above. Documented By: Shannon Allen APRN 11/22/23 1029 Signed By: <Electronically signed by HARSH Allen> 11/22/23 1240 <Electronically signed by Amy Escudero DO> 11/22/23 1245 [facility] Work Phone: Progress note Author Ada Uriostegui [facility] November 22, 2023 12:53pm Note Date/Time November 22, 2023 12: 53pm [facility] [address] [place] [address] Nephrology Progress Note Signed Patient: Evans Forte MR#: [id number] : 1970 Acct:[id number] Age/Sex: 53 / M Adm Date: 4 Loc: Room: [address] [place] [address] Type: ADM IN Attending Dr: Amy Escudero DO Copies to: ~ Date of Service: 11/22/2023 Subjective Subjective Narrative: This is a 53-year-old male patient with a past medical history of hypertension, hyperlipidemia, end-stage renal disease on TTS hemodialysis schedule at [facility], insulin-dependent diabetes mellitus, obstructive sleep apnea, right foot wound follows with wound clinic. Patient presented with diaphoresis nausea vomiting following hemodialysis session yesterday. In the emergency room he wasfound to have slight low blood pressure with fever. Patient was given IV fluid bolus 30 cc/kg. Blood culture was drawn and patient was given 1 dose of Zyvox and cefepime in the emergency room. Patient has a right IJ tunnel catheter. Interim history Patient was seen and examined at bedside. He is feeling better today denies anychest pain palpation cough nausea diarrhea shortness of breath. He had a PVR study which was negative for any significant hemodynamic peripheral occlusive disease. He had x-ray of the foot which showed cellulitis. Blood culture has been negative to the date. Exam Physical Exam Vital Signs: Temp Pulse Resp BP Pulse Ox O2 Del Method 97.8 F 70 18 169/98 H 99 Room Air 11/22/23 07:41 11/22/23 11:18 11/22/23 11:18 11/22/23 11:18 11/22/23 11:18 11/22/23 11:18 Narrative: General: Appears comfortable and not in distress Heart: S1-S2, no rub Lung: Bilateral air entry, no wheezing or crackles Abdomen: Soft, positive bowel sounds Extremities: No edema, no cyanosis Head: Atraumatic, normocephalic Ear: No gross hearing Deficit or external ear redness Eyes: No pallor or redness Neck: No JVD or visible mass Skin: No rashes , warm to touch YIELD ANALYST: Awake,Alert, following simple command Musculoskeletal: No joint swelling or limitation of movement Psychiatric: Cooperative, normal mood and affect Objective Intake and Output I&O: Intake & Output 11/19/23 11/20/23 11/21/2324 23:59 23:59 23:59 23:59 Intake Total 1050 / 1050 850 / 850 Output Total 100 / 100 Balance 1050 / 1050 750 / 750 Weight 147.3 kg 147 kg 147.6 kg Meds and Allergies Meds: Active Medications Acetaminophen (Acetaminophen 325 Mg Tablet) 650 mg PO Q6HR PRN PRN Reason: Pain Scale 1 - 3 or fever Stop: 11/19/24 21:02 Anastrozole (Anastrozole 1 Mg Tablet) 1 mg PO QAM [facility] Stop: 11/20/24 08:59 Last Admin: 11/22/23 08:14 Dose: 1 mg Atorvastatin Calcium (Atorvastatin 20 Mg Tablet) 20 mg PO QAM [facility] Stop: 11/20/24 08:59 Last Admin: 11/22/23 08:13 Dose: 20 mg Calcitriol (Calcitriol 0.25 Mcg Capsule) 0.25 mcg PO TuThSa@0900 [facility] Stop: 11/22/24 08:59 Calcium Acetate (Calcium Acetate 667 Mg Capsule) 2,668 mg PO AC [facility] Stop: 11/20/24 07:29 Last Admin: 11/22/23 11:21 Dose: 2,668 mg Carvedilol (Carvedilol 6.25 Mg Tablet) 6.25 mg PO BID [facility] Stop: 11/21/24 12:19 Cyanocobalamin (Cyanocobalamin 1,000 Mcg Tablet) 1,000 mcg PO DAILY [facility] Stop: 11/20/24 08:59 Last Admin: 11/22/23 08:13 Dose: 1,000 mcg Heparin Sodium (Porcine) (Heparin 5,000 Unit/Ml Vial) 5,000 unit SUBCUT Q12HR [facility] Stop: 11/20/24 08:59 Last Admin: 11/22/23 08:14 Dose: 5,000 unit Linezolid (Zyvox) 600 mg in 300 mls @ 300 mls/hr IV Q12H [facility] Last Admin: 11/22/23 08:58 Dose: 300 mls/hr Ceftriaxone Sodium (Rocephin) 2 gm in 50 mls @ 100 mls/hr IV Q24H [facility] Last Admin: 11/21/23 19:41 Dose: 100 mls/hr Insulin Aspart (Insulin Aspart 300 Units/3 Ml Insuln.Pen) 0 units SUBCUT [facility]; Protocol Stop: 11/20/24 16:29 Last Admin: 11/22/23 11:22 Dose: 2 units Insulin Human Regular (Insulin Regular U-500, Human 1,500 Unit/3 Ml Insuln.Pen) 50 unit SUBCUT BID [facility] Stop: 11/20/24 08:59 Last Admin: 11/22/23 08:16 Dose: 50 unit Levothyroxine Sodium (Levothyroxine 100 Mcg Tablet) 100 mcg PO DAILY.0630 [facility] Stop: 11/20/24 06:29 Last Admin: 11/22/23 05:29 Dose: 100 mcg Melatonin (Melatonin 5 Mg Tablet) 5 mg PO QHS PRN PRN Reason: Insomnia Stop: 11/19/24 21:02 Morphine Sulfate (Morphine Sulfate 2 Mg/Ml Vial) 2 mg IV-PUSH Q4H PRN PRN Reason: Pain Scale 8 - 10 Last Admin: 11/21/23 19:41 Dose: 2 mg Testosterone 1 % (50 Mg/5 Gram) Gel In Packet 1 packet TRANSDERML DAILY [facility] Stop: 11/20/24 08:59 Last Admin: 11/22/23 11:21 Dose: Not Given Tirzepatide [ Mounjaro] 5 Mg/0.5 Ml Pen Injector 5 mg SUBCUT Tu@0900 [facility] Stop: 11/29/24 08:59 Ondansetron HCl (Ondansetron 4 Mg/2 Ml Vial) 4 mg IV-PUSH Q8H PRN PRN Reason: Nausea And Vomiting Stop: 11/19/24 21:02 Pregabalin (Pregabalin 150 Mg Capsule) 150 mg PO BID [facility] Stop: 05/19/24 08:59 Last Admin: 11/22/23 08:14 Dose: 150 mg Sodium Chloride (Sodium Chloride 0.9 % 10 Ml Syringe) 0 ml IV-PUSH PRN PRN PRN Reason: Flush Stop: 11/19/24 18:43 Last Admin: 11/21/23 11:14 Dose: 10 ml Tramadol HCl (Tramadol 50 Mg Tablet) 50 mg PO Q12H PRN PRN Reason: Pain Stop: 05/19/24 15:16 Trazodone HCl (Trazodone 50 Mg Tablet) 50 mg PO QHS PRN PRN Reason: insomnia Stop: 11/19/24 22:31 Last Admin: 11/21/23 21:19 Dose: 50 mg Allergies latex Allergy (Mild, Verified 11/20/23 18:45) Rash vancomycin Allergy (Unknown, Verified 11/20/23 18:45) Rash haloperidol [From Haldol] Adverse Reaction (Verified 11/20/23 18:45) Anxiety Results - Nephrology Labs 11/22/23 06:16 11/22/23 06:16 Labs: 11/22/23 06:16 BUN 62 H Creatinine 9.33 H D Radiology Impressions Impressions - last 24 hours: Impressions Foot X-Ray 11/21/23 15:15 IMPRESSION: No acute bony injury. No osteolytic or bony destructive process. Diffuse soft tissue swelling is noted suggesting cellulitis. Impression dictated by: Taqueria Reese M.D.11/21/2023 4:39 PM Dictation Location: [address] 11/22/23 07:00 IMPRESSION: NO HEMODYNAMICALLY SIGNIFICANT PERIPHERAL VASCULAR OCCLUSIVE DISEASE AT REST IN EITHER LOWER EXTREMITY. Impression dictated by: Ramirez Jean M.D.11/22/2023 10:09 AM Dictation Location: [place] [address] Any impression(s) listed above is documentation that was entered by the reading physician into a diagnostic report(s) for Evans Forte. I have reviewed the report(s) and am incorporating any findings in the treatment plan of this patient where applicable. 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 Patient has been going to [facility] for hemodialysis. Last hemodialysis session was yesterday (2) Hyperparathyroidism: Plan: Patient on calcitriol for secondary hypothyroidism (3) Anemia of renal disease: Plan: Hemoglobin is at target for end-stage renal disease. (4) Sepsis: Plan: Patient presented with low blood pressure, fever, leukocytosis. Patient was resuscitated with IV fluid and started on wide spectrum antibiotic concerning for central line related bacteremia. Blood culture is negative so far. Patientcurrently on ceftriaxone and Zyvox as the patient has allergy to vancomycin. Patient also has a right foot sole wound and follows with wound clinic (5) Type 2 diabetes mellitus with diabetic chronic kidney disease: Assessment/Problem Details: He has insulin-dependent type 2 diabetes mellitus. He takes insulin U-500 at home. (6) Benign hypertension with end-stage renal disease: Assessment/Problem Details: Blood pressure is controlled. He takes Lasix and carvedilol at home. Plan * No need for hemodialysis session today. Next hemodialysis session will be Wednesday * Continue fever workup as per the primary hospitalist team. Continue empiric antibiotics. Pharmacy to dose medication based on ESRD status * Continue PhosLo with meals and calcitriol for secondary hyperparathyroidism * Continue home dose of the Lasix and carvedilol. * Continue DM management as per the primary hospitalist team. The goal of blood sugar between 100 to 150 mg/dL. * Check CBC and renal function panel before hemodialysis session to adjust order as needed Documented By: Ada Uriostegui MD 11/22/23 1246 Signed By: <Electronically signed by Ada Uriostegui MD> 11/22/23 1253 [facility] Work Phone: Progress note Author Ada Uriostegui [facility] November 23, 2023 12:09pm Note Date/Time November 23, 2023 10: 34am [facility] [address] [place] [address] Nephrology Progress Note Signed Patient: Evans Forte MR#: [id number] : 1970 Acct:[id number] Age/Sex: 53 / M Adm Date: 4 Loc: Room: [address] [place] [address] Type: ADM IN Attending Dr: Amy Escudero DO Copies to: ~ Date of Service: 11/23/2023 Subjective Subjective Narrative: This is a 53-year-old male patient with a past medical history of hypertension, hyperlipidemia, end-stage renal disease on TTS hemodialysis schedule at [facility], insulin-dependent diabetes mellitus, obstructive sleep apnea, right foot wound follows with wound clinic. Patient presented with diaphoresis nausea vomiting following hemodialysis session yesterday. In the emergency room he wasfound to have slight low blood pressure with fever. Patient was given IV fluid bolus 30 cc/kg. Blood culture was drawn and patient was given 1 dose of Zyvox and cefepime in the emergency room. Patient has a right IJ tunnel catheter. Interim history Patient was seen and examined at bedside during dialysis. He was seen by the podiatry and noted to have MRI of the foot.. He is feeling better today denies any chest pain palpation cough nausea diarrhea shortness of breath. He had a PVR study which was negative for any significant hemodynamic peripheral occlusive disease. He had x- ray of the foot which showed cellulitis. Blood culture has been negative to the date. Exam Physical Exam Vital Signs: Temp Pulse Resp BP Pulse Ox O2 Del Method 97.4 F L 68 16 181/85 H 98 Room Air 11/23/23 09:10 11/23/23 09:30 11/23/23 09:10 11/23/23 09:30 11/23/23 09:10 11/23/23 09:10 Narrative: General: Appears comfortable and not in distress Heart: S1-S2, no rub Lung: Bilateral air entry, no wheezing or crackles Abdomen: Soft, positive bowel sounds Extremities: No edema, no cyanosis Head: Atraumatic, normocephalic Ear: No gross hearing Deficit or external ear redness Eyes: No pallor or redness Neck: No JVD or visible mass Skin: No rashes , warm to touch YIELD ANALYST: Awake,Alert, following simple command Musculoskeletal: No joint swelling or limitation of movement Psychiatric: Cooperative, normal mood and affect Objective Intake and Output I&O: Intake & Output 11/20/23 11/21/23 11/22/23 11/23/23 23:59 23:59 23:59 23:59 Intake Total 1050 / 1050 900 / 900 300 / 300 850 / 850 Output Total 100 / 100 Balance 1050 / 1050 800 / 800 300 / 300 850 / 850 Weight 147.3 kg 147 kg 147.6 kg 146.2 kg Meds and Allergies Meds: Active Medications Acetaminophen (Acetaminophen 325 Mg Tablet) 650 mg PO Q6HR PRN PRN Reason: Pain Scale 1 - 3 or fever Stop: 11/19/24 21:02 Anastrozole ([facility] 1 Mg Tablet) [facility] Stop: 11/20/24 08:59 Last Admin: 11/22/23 08:14 Dose: 1 mg Atorvastatin Calcium (Atorvastatin 20 Mg Tablet) [facility] Stop: 11/20/24 08:59 Last Admin: 11/22/23 08:13 Dose: 20 mg Calcitriol (Calcitriol 0.25 Mcg Capsule) 0.25 mcg PO TuThSa@0900 [facility] Stop: 11/22/24 08:59 Calcium Acetate (Calcium Acetate 667 Mg Capsule) 2,668 mg PO AC [facility] Stop: 11/20/24 07:29 Last Admin: 11/23/23 08:52 Dose: Not Given Carvedilol (Carvedilol 6.25 Mg Tablet) 6.25 mg PO BID [facility] Stop: 11/21/24 13:29 Last Admin: 11/23/23 08:53 Dose: Not Given Cyanocobalamin (Cyanocobalamin 1,000 Mcg Tablet) 1,000 mcg PO DAILY [facility] Stop: 11/20/24 08:59 Last Admin: 11/22/23 08:13 Dose: 1,000 mcg Darbepoetin Zechariah (Darbepoetin Zechariah In Polysorbat 25 Mcg/Ml Vial) 25 mcg IV-PUSHTu@0930 [facility]; Protocol Stop: 11/22/24 09:29 Furosemide (Furosemide 80 Mg Tablet) 80 mg PO BID@0800,1600 [facility] Stop: 11/21/24 15:59 Last Admin: 11/23/23 08:52 Dose: Not Given Heparin Sodium (Porcine) (Heparin 5,000 Unit/Ml Vial) 5,000 unit SUBCUT Q12HR [facility] Stop: 11/20/24 08:59 Last Admin: 11/23/23 08:53 Dose: Not Given Heparin Sodium (Porcine) (Heparin 10,000 Unit/10 Ml Vial) 2,000 unit IV PRN PRN PRN Reason: Dialysis Stop: 11/22/24 09:19 Last Admin: 11/23/23 09:40 Dose: 2,000 unit Heparin Sodium (Porcine) (Heparin 10,000 Unit/10 Ml Vial) 2,000 unit IV PRN PRN PRN Reason: Dialysis Stop: 11/22/24 09:19 Last Admin: 11/23/23 09:40 Dose: 2,000 unit Linezolid (Zyvox) 600 mg in 300 mls @ 300 mls/hr IV Q12H [facility] Last Admin: 11/22/23 21:02 Dose: 300 mls/hr Ceftriaxone Sodium (Rocephin) 2 gm in 50 mls @ 100 mls/hr IV Q24H [facility] Last Admin: 11/22/23 19:25 Dose: 100 mls/hr Sodium Chloride (0.9% Sodium Chloride 1,000 Ml) 1,000 mls @ 0 mls/hr MISCELLANE.Q0M PRN PRN Reason: Dialysis Stop: 11/22/24 09:19 Last Infusion: 11/23/23 09:43 Dose: Infused Insulin Aspart (Insulin Aspart 300 Units/3 Ml Insuln.Pen) 0 units SUBCUT ACHS [facility]; Protocol Stop: 11/20/24 16:29 Last Admin: 11/23/23 08:52 Dose: Not Given Insulin Human Regular (Insulin Regular U-500, Human 1,500 Unit/3 Ml Insuln.Pen) 50 unit SUBCUT BID [facility] Stop: 11/20/24 08:59 Last Admin: 11/23/23 08:53 Dose: Not Given Levothyroxine Sodium (Levothyroxine 100 Mcg Tablet) 100 mcg PO DAILY.629 [facility] Stop: 11/20/24 06:29 Last Admin: 11/23/23 05:38 Dose: 100 mcg Melatonin (Melatonin 5 Mg Tablet) 5 mg PO QHS PRN PRN Reason: Insomnia Stop: 11/19/24 21:02 Morphine Sulfate (Morphine Sulfate 2 Mg/Ml Vial) 2 mg IV-PUSH Q4H PRN PRN Reason: Pain Scale 8 - 10 Last Admin: 11/21/23 19:41 Dose: 2 mg Testosterone 1 % (50 Mg/5 Gram) Gel In Packet 1 packet TRANSDERML DAILY [facility] Stop: 11/20/24 08:59 Last Admin: 11/23/23 08:53 Dose: Not Given Tirzepatide [ Mounjaro] 5 Mg/0.5 Ml Pen Injector 5 mg SUBCUT Tu@0900 [facility] Stop: 11/29/24 08:59 Ondansetron HCl (Ondansetron 4 Mg/2 Ml Vial) 4 mg IV-PUSH Q8H PRN PRN Reason: Nausea And Vomiting Stop: 11/19/24 21:02 Pregabalin (Pregabalin 50 Mg Capsule) 50 mg PO DAILY [facility] Stop: 05/21/24 08:59 Sodium Chloride (Sodium Chloride 0.9 % 10 Ml Syringe) 0 ml IV-PUSH PRN PRN PRN Reason: Flush Stop: 11/19/24 18:43 Last Admin: 11/23/23 09:40 Dose: 40 ml Sodium Chloride (Sodium Chloride 0.9 % 10 Ml Syringe) 0 ml IV-PUSH PRN PRN PRN Reason: Flush Stop: 11/22/24 09:19 Tramadol HCl (Tramadol 50 Mg Tablet) 50 mg PO Q12H PRN PRN Reason: Pain Stop: 05/19/24 15:16 Trazodone HCl (Trazodone 50 Mg Tablet) 50 mg PO QHS PRN PRN Reason: insomnia Stop: 11/19/24 22:31 Last Admin: 11/21/23 21:19 Dose: 50 mg Allergies latex Allergy (Mild, Verified 11/20/23 18:45) Rash vancomycin Allergy (Unknown, Verified 11/20/23 18:45) Rash haloperidol [From Haldol] Adverse Reaction (Verified 11/20/23 18:45) Anxiety Results - Nephrology Labs 11/23/23 06:19 11/23/23 06:19 Labs: 11/23/23 06:19 BUN 74 H Creatinine 10.07 H D Radiology Impressions Impressions - last 24 hours: Any impression(s) listed above is documentation that was entered by the reading physician into a diagnostic report(s) for Evans Forte. I have reviewed the report(s) and am incorporating any findings in the treatment plan of this patient where applicable. 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 Patient has been going to [facility] on TTS for hemodialysis. Last hemodialysis session was yesterday (2) Hyperparathyroidism: Plan: Patient on calcitriol for secondary hypothyroidism (3) Anemia of renal disease: Plan: Hemoglobin is at target for end-stage renal disease. (4) Sepsis: Plan: Patient presented with low blood pressure, fever, leukocytosis. Patient was resuscitated with IV fluid and started on wide spectrum antibiotic concerning for central line related bacteremia. Blood culture is negative so far. Patientcurrently on ceftriaxone and Zyvox as the patient has allergy to vancomycin. Patient also has a right foot sole wound and follows with wound clinic (5) Type 2 diabetes mellitus with diabetic chronic kidney disease: Assessment/Problem Details: He has insulin-dependent type 2 diabetes mellitus. He takes insulin U-500 at home. (6) Benign hypertension with end-stage renal disease: Assessment/Problem Details: Blood pressure is controlled. He takes Lasix and carvedilol at home. Plan * Hemodialysis today as ordered * Continue fever workup as per the primary hospitalist team. Continue empiric antibiotics. Pharmacy to dose medication based on ESRD status * Continue PhosLo with meals and calcitriol for secondary hyperparathyroidism * Continue home dose of the Lasix and carvedilol. * Continue DM management as per the primary hospitalist team. The goal of blood sugar between 100 to 150 mg/dL. * Check CBC and renal function panel before hemodialysis session to adjust order as needed Documented By: Ada Uriostegui MD 11/23/23 1033 Signed By: <Electronically signed by Ada Uriostegui MD> 11/23/23 1209 [facility] Work Phone: Progress note Author Chintan Hernández [facility] November 23, 2023 10:54am Note Date/Time November 23, 2023 10: 54am [facility] [address] [place] [address] Infect. Disease Progress Note Signed Patient: Evans Forte MR#: [id number] : 1970 Acct:[id number] Age/Sex: 53 / M Adm Date: 4 Loc: Room: [address] [place] [address] Type: ADM IN Attending Dr: Amy Escudero DO Copies to: ~ Date of Service: 11/23/2023 Subjective Interval history: Patient seen on dialysis. Feeling good overall. Dietary input appreciated. Continues on IV antibiotics. Exam Physical Exam Vital Signs: Temp Pulse Resp BP Pulse Ox O2 Del Method 97.4 F L 68 16 181/85 H 98 Room Air 11/23/23 09:10 11/23/23 09:30 11/23/23 09:10 11/23/23 09:30 11/23/23 09:10 11/23/23 09:10 Const General: cooperative, comfortable and no acute distress Orientation: oriented x3 HEENT Head: normal to inspection Mouth: oral mucosae normal Eyes General: appearance normal, both eyes and all related structures Neck Neck: normal visual inspection Chest Chest palpation & inspection: abnormal inspection of the chest (R chest wall HD catheter non tender; exit site WNL) Resp Effort & Inspection: normal respiratory effort Cardio Palpation: normal PMI Rate: regular rate Rhythm: regular rhythm GI Inspection: normal to inspection Palpation: soft Auscultation: normal bowel sounds Skin Lesions: lesion noted and other (multiple scabs on LLE; right foot wrapped) Other: Right foot wrapped with some blood noted through the dressing Extrem General: abnormal to inspection Objective Labs CBC/BMP: CBC, BMP 11/23/23 06:19 Corrected WBC 7.7 Uncorrected WBC Count 7.7 RBC 3.73 L Hgb 11.3 L Hct 35.2 L Plt Count 248 Sodium 139 Potassium 4.5 Chloride 102 Carbon Dioxide 25.0 Anion Gap 16.5 H BUN 74 H Creatinine 10.07 H D Calcium 9.3 Labs: 11/23/23 06:19 BUN 74 H Creatinine 10.07 H D Microbiology Microbiology: Microbiology - Results from entire visit 11/21/23 10:56 Urine - Clean-Voided Midstream Urine Culture - Final No Growth 2 Days 11/20/23 19:19 Blood - Right Antecubital Blood Culture - Preliminary No Growth 2 Days 11/20/23 19:00 Blood - Right Hand Blood Culture - Preliminary No Growth 2 Days 11/20/23 19:04 Nasopharyngeal Respiratory Panel (PCR) - Final Allergies and Medications Allergies and Active Meds Allergies latex Allergy (Mild, Verified 11/20/23 18:45) Rash vancomycin Allergy (Unknown, Verified 11/20/23 18:45) Rash haloperidol [From Haldol] Adverse Reaction (Verified 11/20/23 18:45) Anxiety Active Medications Acetaminophen (Acetaminophen 325 Mg Tablet) 650 mg PO Q6HR PRN PRN Reason: Pain Scale 1 - 3 or fever Stop: 11/19/24 21:02 Anastrozole (Anastrozole 1 Mg Tablet) 1 mg PO QAM [facility] Stop: 11/20/24 08:59 Last Admin: 11/22/23 08:14 Dose: 1 mg Atorvastatin Calcium (Atorvastatin 20 Mg Tablet) 20 mg PO QAM [facility] Stop: 11/20/24 08:59 Last Admin: 11/22/23 08:13 Dose: 20 mg Calcitriol (Calcitriol 0.25 Mcg Capsule) 0.25 mcg PO TuThSa@0900 [facility] Stop: 11/22/24 08:59 Calcium Acetate (Calcium Acetate 667 Mg Capsule) 2,668 mg PO AC [facility] Stop: 11/20/24 07:29 Last Admin: 11/23/23 08:52 Dose: Not Given Carvedilol (Carvedilol 6.25 Mg Tablet) 6.25 mg PO BID [facility] Stop: 11/21/24 13:29 Last Admin: 11/23/23 08:53 Dose: Not Given Cyanocobalamin (Cyanocobalamin 1,000 Mcg Tablet) 1,000 mcg PO DAILY [facility] Stop: 11/20/24 08:59 Last Admin: 11/22/23 08:13 Dose: 1,000 mcg Darbepoetin Zechariah (Darbepoetin Zechariah In Polysorbat 25 Mcg/Ml Vial) 25 mcg IV-PUSHTu@0930 [facility]; Protocol Stop: 11/22/24 09:29 Furosemide (Furosemide 80 Mg Tablet) 80 mg PO BID@0800,1600 [facility] Stop: 11/21/24 15:59 Last Admin: 11/23/23 08:52 Dose: Not Given Heparin Sodium (Porcine) (Heparin 5,000 Unit/Ml Vial) 5,000 unit SUBCUT Q12HR [facility] Stop: 11/20/24 08:59 Last Admin: 11/23/23 08:53 Dose: Not Given Heparin Sodium (Porcine) (Heparin 10,000 Unit/10 Ml Vial) 2,000 unit IV PRN PRN PRN Reason: Dialysis Stop: 11/22/24 09:19 Last Admin: 11/23/23 09:40 Dose: 2,000 unit Heparin Sodium (Porcine) (Heparin 10,000 Unit/10 Ml Vial) 2,000 unit IV PRN PRN PRN Reason: Dialysis Stop: 11/22/24 09:19 Last Admin: 11/23/23 09:40 Dose: 2,000 unit Linezolid (Zyvox) 600 mg in 300 mls @ 300 mls/hr IV Q12H [facility] Last Admin: 11/22/23 21:02 Dose: 300 mls/hr Ceftriaxone Sodium (Rocephin) 2 gm in 50 mls @ 100 mls/hr IV Q24H [facility] Last Admin: 11/22/23 19:25 Dose: 100 mls/hr Sodium Chloride (0.9% Sodium Chloride 1,000 Ml) 1,000 mls @ 0 mls/hr MISCELLANE.Q0M PRN PRN Reason: Dialysis Stop: 11/22/24 09:19 Last Infusion: 11/23/23 09:43 Dose: Infused Insulin Aspart (Insulin Aspart 300 Units/3 Ml Insuln.Pen) 0 units SUBCUT ACHS [facility]; Protocol Stop: 11/20/24 16:29 Last Admin: 11/23/23 08:52 Dose: Not Given Insulin Human Regular (Insulin Regular U-500, Human 1,500 Unit/3 Ml Insuln.Pen) 50 unit SUBCUT BID [facility] Stop: 11/20/24 08:59 Last Admin: 11/23/23 08:53 Dose: Not Given Levothyroxine Sodium (Levothyroxine 100 Mcg Tablet) 100 mcg PO DAILY.0630 [facility] Stop: 11/20/24 06:29 Last Admin: 11/23/23 05:38 Dose: 100 mcg Melatonin (Melatonin 5 Mg Tablet) 5 mg PO QHS PRN PRN Reason: Insomnia Stop: 11/19/24 21:02 Morphine Sulfate (Morphine Sulfate 2 Mg/Ml Vial) 2 mg IV-PUSH Q4H PRN PRN Reason: Pain Scale 8 - 10 Last Admin: 11/21/23 19:41 Dose: 2 mg Testosterone 1 % (50 Mg/5 Gram) Gel In Packet 1 packet TRANSDERML DAILY [facility] Stop: 11/20/24 08:59 Last Admin: 11/23/23 08:53 Dose: Not Given Tirzepatide [ Mounjaro] 5 Mg/0.5 Ml Pen Injector 5 mg SUBCUT Tu@0900 [facility] Stop: 11/29/24 08:59 Ondansetron HCl (Ondansetron 4 Mg/2 Ml Vial) 4 mg IV-PUSH Q8H PRN PRN Reason: Nausea And Vomiting Stop: 11/19/24 21:02 Pregabalin (Pregabalin 50 Mg Capsule) 50 mg PO DAILY [facility] Stop: 05/21/24 08:59 Sodium Chloride (Sodium Chloride 0.9 % 10 Ml Syringe) 0 ml IV-PUSH PRN PRN PRN Reason: Flush Stop: 11/19/24 18:43 Last Admin: 11/23/23 09:40 Dose: 40 ml Sodium Chloride (Sodium Chloride 0.9 % 10 Ml Syringe) 0 ml IV-PUSH PRN PRN PRN Reason: Flush Stop: 11/22/24 09:19 Tramadol HCl (Tramadol 50 Mg Tablet) 50 mg PO Q12H PRN PRN Reason: Pain Stop: 05/19/24 15:16 Trazodone HCl (Trazodone 50 Mg Tablet) 50 mg PO QHS PRN PRN Reason: insomnia Stop: 11/19/24 22:31 Last Admin: 11/21/23 21:19 Dose: 50 mg A&P - Infectious Disease Assessment/Plan (1) Fever: (2) Leukocytosis: (3) Wound of right foot: (4) Dependence on renal dialysis: (5) Edema of right lower extremity: Plan HD cath site accessed and dialysis continues to look good. Nontender. Right foot wrapped but some bloody drainage noted on the dressing itself. Right lowerextremity anterior ritter with slight erythema. Concern that cellulitis likely ispatient's reason that he experiences systemic symptoms he had on Wednesday. Blood cultures at this point remain negative. Patient remains on broad-spectrumantibiotic therapy. MRI has been ordered by podiatry. Will see if oral Zyvox can be obtained for insurance purposes for treatment for discharge planning. Documented By: Chintan Hernández MD 11/23/23 1052 Signed By: <Electronically signed by MD Chintan Hernández> 11/23/23 1054 [facility] Work Phone: Progress note Author Amy Escudero [facility] November 24, 2023 1:40pm Note Date/Time November 23, 2023 1:0 3pm [facility] [address] [place] [address] Hospitalist Progress Note Signed Patient: Evans Forte MR#: [id number] : 1970 Acct:[id number] Age/Sex: 53 / M Adm Date: 4 Loc: Room: [address] [place] [address] Type: DIS IN Attending Dr: Amy Escudero DO Copies to: ~ Date of Service: 11/23/2023 Subjective Subjective Narrative: Seen and examined at bedside, no acute events overnight, resting comfortably in bed. Denies any pain or discomfort, slight drainage from right foot wound, no fever or chills. Exam Physical Exam Vital Signs: Temp Pulse Resp BP Pulse Ox O2 Del Method 97.4 F L 71 16 155/86 H 98 Room Air 11/23/23 09:10 11/23/23 13:00 11/23/23 09:10 11/23/23 13:00 11/23/23 09:10 11/23/23 09:10 Narrative: CONST-alert, awake resting comfortably in bed CARDIAC-normal rate, regular rhythm, normal S1 & S2. PULM-diminished without wheeze or rhonchi, RA, no accessory muscle use or cough noted ABD - Soft. Bowel sounds are normal. No distention No tenderness EXTREM-no edema BLE calves nontender SKIN-erythema to right lower extremity. Dressing intact to right foot Objective Lab Results 11/23/23 06:19 11/23/23 06:19 Microbiology Results Microbiology 11/21/23 10:56 Urine - Clean-Voided Midstream Urine Culture - Final No Growth 2 Days 11/20/23 19:19 Blood - Right Antecubital Blood Culture - Preliminary No Growth 2 Days 11/20/23 19:00 Blood - Right Hand Blood Culture - Preliminary No Growth 2 Days Meds Allergies and Active Meds Allergies latex Allergy (Mild, Verified 11/20/23 18:45) Rash vancomycin Allergy (Unknown, Verified 11/20/23 18:45) Rash haloperidol [From Haldol] Adverse Reaction (Verified 11/20/23 18:45) Anxiety Active Meds: Active Medications Generic Name Dose Route Start Last Admin Trade Name Freq PRN Reason Stop Dose Admin Acetaminophen 650 mg 11/20/23 21:03 Acetaminophen 325 Mg Tablet PO 11/19/24 21:02 Q6HR PRN Pain Scale 1 - 3 or fever Anastrozole 1 mg 11/21/23 09:00 11/22/23 08:14 Anastrozole 1 Mg Tablet PO 11/20/24 08:59 1 mg QAM VINCE Administration Atorvastatin Calcium 20 mg 11/21/23 09:00 11/22/23 08:13 Atorvastatin 20 Mg Tablet PO 11/20/24 08:59 20 mg QAM VINCE Administration Calcitriol 0.25 mcg 11/23/23 09:00 Calcitriol 0.25 Mcg Capsule PO 11/22/24 08:59 TuThSa@0900 VINCE Calcium Acetate 2,668 mg 11/21/23 07:30 11/23/23 08:52 Calcium Acetate 667 Mg Capsule PO 11/20/24 07:29 Not Given AC VINCE Carvedilol 6.25 mg 11/22/23 13:30 11/23/23 08:53 Carvedilol 6.25 Mg Tablet PO 11/21/24 13:29 Not Given BID VINCE Cyanocobalamin 1,000 mcg 11/21/23 09:00 11/22/23 08:13 Cyanocobalamin 1,000 Mcg Tablet PO 11/20/24 08:59 1,000 mcg DAILY VINCE Administration Darbepoetin Zechariah 25 mcg 11/23/23 09:30 11/23/23 11:47 Darbepoetin Zechariah In Polysorbat 25 Mcg/Ml Vial IV-PUSH 11/22/24 09:29 25 mcg Tu@0930 VINCE Administration Protocol Furosemide 80 mg 11/22/23 16:00 11/23/23 08:52 Furosemide 80 Mg Tablet PO 11/21/24 15:59 Not Given BID@0800,1600 VINCE Heparin Sodium (Porcine) 5,000 unit 11/21/23 09:00 11/23/23 08:53 Heparin 5,000 Unit/Ml Vial SUBCUT 11/20/24 08:59 Not Given Q12HR VINCE Heparin Sodium (Porcine) 2,000 unit 11/23/23 09:20 11/23/23 09:40 Heparin 10,000 Unit/10 Ml Vial IV 11/22/24 09:19 2,000 unit PRN PRN Administration Dialysis Heparin Sodium (Porcine) 2,000 unit 11/23/23 09:20 11/23/23 09:40 Heparin 10,000 Unit/10 Ml Vial IV 11/22/24 09:19 2,000 unit PRN PRN Administration Dialysis Linezolid 600 mg in 300 mls @ 300 mls/hr 11/21/23 09:30 11/22/23 21:02 Zyvox IV 300 mls/hr Q12H VINCE Administration Ceftriaxone Sodium 2 gm in 50 mls @ 100 mls/hr 11/21/23 20:00 11/22/23 19:25 Rocephin IV 100 mls/hr Q24H VINCE Administration Sodium Chloride 1,000 mls @ 0 mls/hr 11/23/23 09:20 11/23/23 11:45 0.9% Sodium Chloride 1,000 Ml MISCELLANE 11/22/24 09:19 999 mls/hr .Q0M PRN Administration Dialysis As Directed Insulin Aspart 0 units 11/21/23 16:30 11/23/23 08:52 Insulin Aspart 300 Units/3 Ml Insuln.Pen SUBCUT 11/20/24 16:29 Not Given ACHS [facility] Protocol Insulin Human Regular 50 unit 11/21/23 09:00 11/23/23 08:53 Insulin Regular U-500, Human 1,500 Unit/3 Ml Insuln.Pen SUBCUT 11/20/24 08:59 Not Given BID VINCE Levothyroxine Sodium 100 mcg 11/21/23 06:30 11/23/23 05:38 Levothyroxine 100 Mcg Tablet PO 11/20/24 06:29 100 mcg DAILY.0630 VINCE Administration Melatonin 5 mg 11/20/23 21:03 Melatonin 5 Mg Tablet PO 11/19/24 21:02 QHS PRN Insomnia Morphine Sulfate 2 mg 11/20/23 21:03 11/21/23 19:41 Morphine Sulfate 2 Mg/Ml Vial IV-PUSH 2 mg Q4H PRN Administration Pain Scale 8 - 10 Testosterone 1 % (50 1 packet 11/21/23 09:00 11/23/23 08:53 Mg/5 Gram) Gel In TRANSDERML 11/20/24 08:59 Not Given Packet DAILY [facility] Tirzepatide [ 5 mg 11/30/23 09:00 Mounjaro] 5 Mg/0.5 SUBCUT 11/29/24 08:59 Ml Pen Injector Tu@0900 [facility] Ondansetron HCl 4 mg 11/20/23 21:03 Ondansetron 4 Mg/2 Ml Vial IV-PUSH 11/19/24 21:02 Q8H PRN Nausea And Vomiting Pregabalin 50 mg 11/23/23 09:00 Pregabalin 50 Mg Capsule PO 05/21/24 08:59 DAILY [facility] Sodium Chloride 0 ml 11/20/23 18:44 11/23/23 09:40 Sodium Chloride 0.9 % 10 Ml Syringe IV-PUSH 11/19/24 18:43 40 ml PRN PRN Administration Flush Sodium Chloride 0 ml 11/23/23 09:20 Sodium Chloride 0.9 % 10 Ml Syringe IV-PUSH 11/22/24 09:19 PRN PRN Flush Tramadol HCl 50 mg 11/21/23 15:21 Tramadol 50 Mg Tablet PO 05/19/24 15:16 Q12H PRN Pain Trazodone HCl 50 mg 11/20/23 22:32 11/21/23 21:19 Trazodone 50 Mg Tablet PO 11/19/24 22:31 50 mg QHS PRN Administration insomnia A&P - Hospitalist Assessment/Plan (1) Sepsis: (2) Hypomagnesemia: (3) Anemia of renal disease: (4) End stage renal disease: (5) Metabolic acidosis: (6) Insulin dependent diabetes mellitus: (7) Hypertension: (8) Diabetes mellitus due to underlying condition, controlled, with diabetic neuropathy: (9) Diabetic ulcer of foot associated with diabetes mellitus due to underlying condition, with fat layer exposed: Plan Sepsis?source unclear, suspecting from right lower extremity cellulitis Chronic right foot wounds present on admit, hx Charcot deformity repair hardwarepresent Presence of tunneled hemodialysis catheter right chest placed 09/16/2023- last accessed 11/20/23, does not look infectious Recent left forearm fistula placement 10/06/2023- not in use yet Recent removal PD catheter abdomen 10/27/2023 Leukocytosis?resolved * Leukocytosis resolved, continues to be afebrile * Continues on ceftriaxone and linezolid, blood cultures and urine culture with no growth in 2 days * Infectious disease following, planning on switching to oral Zyvox upon discharge * MRI of right foot pending, podiatry following * Foot x-ray with no acute bony injury. No osteolytic or bony destructive process. Diffuse soft tissue swelling, suggestive of cellulitis * Continue zinc, vitamin C for wound healing * Continue wound care and pain management as needed * PVR negative for significant peripheral vascular occlusive disease ESRD on hemodialysis / Anemia of CKD Metabolic Acidosis -Nephrology on consult for further management * Hemoglobin stable, on IV iron monthly Hypomagnesemia -repleted, trend Chronic conditions 1. HTN, HLD?atorvastatin. On Coreg and Lasix, BP uncontrolled we will add hydralazine, continue to monitor 2. T2DM with neuropathy? U500 insulin, pregabalin; hold tirzepatide. Check A1c. SSI coverage and fingerstick 3. Hypothyroid?levothyroxine 4. Morbid obesity, GUSTAVO Attending attestation: Patient was personally seen by me on the day of encounter. I reviewed his history and performed ceja elements of exam and formulated the plan of care and confirmed the nurse practitioner's note above. Documented By: Shannon Allen APRN 11/23/23 1303 Signed By: <Electronically signed by HARSH Allen> 11/23/23 1540 <Electronically signed by Amy Escudero DO> 11/24/23 1340 [facility] Work Phone: Progress note Author Gi Mondragon [facility] November 23, 2023 3:53pm Note Date/Time November 23, 2023 3:5 3pm [facility] [address] [place] [address] Podiatry Progress Note Signed Patient: Evans Forte MR#: [id number] : 1970 Acct:[id number] Age/Sex: 53 / M Adm Date: 4 Loc: Room: [address] [place] [address] Type: ADM IN Attending Dr: Amy Escudero DO Copies to: ~ Subjective Subjective Date of Service: Date of Service: 11/23/2023 Time of Service: 15:51 Narrative: Mr. Forte is a 53 year old male who was admitted due to symptoms of sepsis. Patient has a large ulceration on the bottom of the right great toe and heel. He has been following with a community support associate and family. Patient states that the ulcerations are keeping him from being able to have a kidney transplant. He started to notice some redness along the right ritter and there was concern for cellulitis. Patient then started to develop some symptoms with nausea and vomiting which prompted him to come to the emergency room. Podiatry is consulted for evaluation of the ulcerations to the right foot. He currently denies any pain related to the ulcerations. Exam Physical Exam Vital Signs: Temp Pulse Resp BP Pulse Ox O2 Del Method 98 F 77 18 172/79 H 98 Room Air 11/23/23 14:47 11/23/23 14:47 11/23/23 14:47 11/23/23 14:47 11/23/23 14:47 11/23/23 14:47 Narrative: General: Patient is seen at bedside and is awake and aware and in no acute distress. He maintained a conversation on the phone during the entirety of my visit. Vascular: DP and PT pulses are palpable to the right lower extremity. There is evidence of cellulitis along the anterior right ritter but There is no evidence oferythema or cellulitis around the ulcerations to the right foot. Neurology: Patient has a diabetic peripheral neuropathy with autonomic, sensory and motor components. Dermatology: Patient has a small ulceration approximately 1 and 1.5 cm long plantar sub-first MPJ right. There is a granular base with no evidence of active pustular drainage, no malodor noted. There is no surrounding cellulitis or erythema noted. Surrounding hyperkeratosis noted due to pressure. Large ulceration along the plantar medial aspect of the right heel proximately 6 7 cm in length x 4 cm in width. Again ulceration is very superficial with granular base. Significant amount of surrounding hyperkeratosis was debrided. There is no evidence of cellulitis, malodor or active drainage noted to the left heel. No areas of the deep probing or palpation down to bone noted to either ulceration site. Radiographs: There is no evidence of the cortical erosions or bone changes to the first metatarsal or medial heel. Patient does have a significant amount of hardware present within the right foot from prior Charcot reconstruction along the medial column as well as screws present along the posterior heel. Assessment/Plan (1) Ulcer of right foot: Plan: MRI did not demonstrate any evidence of osteomyelitis around the ulceration sites. Patient may have cellulitis within the right lower extremity but there is no need for surgical intervention. I did debride the ulcerations yesterday during evaluation and patient can continue with current wound care. We did discuss the importance of offloading in order to reduce pressure to allow for healing and reduce the large hyperkeratosis. Patient will follow-up with his community support associate and family for further wound care. Discussed with hospitalist and patient will be discharged home on a course of oral antibiotics. Okay for discharge per podiatry. Qualifiers: Non-pressure ulcer stage: limited to breakdown of skin Qualified Code(s): L97.511 - Non-pressure chronic ulcer of other part of right foot limited tobreakdown of skin Code(s): L97.519 - Non-pressure chronic ulcer of other part of right foot with unspecified severity (2) Ulcer of right heel: Plan: . Qualifiers: Non-pressure ulcer stage: with fat layer exposed Qualified Code(s): L97.412 - Non-pressure chronic ulcer of right heel and midfoot with fat layer exposed Code(s): L97.419 - Non-pressure chronic ulcer of right heel and midfoot with unspecified severity Plan . 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, [employer] Other Summary Purpose Family History No Family History Records Found Relationship Condition Age at Onset Recorded Date/T heraclio Not Specified No pertinent family history Unknown Relationship Condition Age at Onset Recorded Date/T heraclio Not Specified Malignant neoplasm of breast Unknown father Myocardial infarction Unknown grandparent Malignant neoplasm of breast Unknown Relationship Condition Age at Onset Recorded Date/T heraclio Not Specified Malignant neoplasm of breast Unknown Malignant neoplasm Unknown Unknown father Myocardial infarction Unknown Heart disease Unknown grandparent Malignant neoplasm of breast Unknown daughter Crohn's disease Unknown Relationship Condition Age at Onset Recorded Date/T heraclio mother Malignant neoplasm of breast Unknown Malignant neoplasm Unknown Unknown father Myocardial infarction Unknown Heart disease Unknown grandparent Malignant neoplasm of breast Unknown daughter Crohn's disease Unknown Advance Directives No Advanced Directives Records Found Advance Directive Response Recorded Date/ Time Advance Directives No July 11, 2018 3:19pm Advance Directive Response Recorded Date/ Time Advance Directives No July 11, 2018 2:19pm Chief Complaint and Reason for Visit Chief Complaint Admit Date rt foot pain October 29, 2024 7:28pm rt leg swelling November 27, 2024 10: 38pm Reason for Visit Admit Date Benign hypertension with end-stage renal disease October 29, 2024 7:28pm Cellulitis October 29, 2024 7:28pm Cellulitis of leg, right October 29, 2024 7:28pm ESRD on hemodialysis October 29, 2024 7:28pm Right foot infection October 29, 2024 7:28pm Type 2 diabetes mellitus wit h diabetic chronic kidney disease October 29, 2024 7:28pm Chief Complaint N18.4 E11.22 I12.9 N 25.81 D63.1 R80.1 E87.5 E11.22 I12.9 N25.81 D63.1 R80.1 E87.5 N18.5 Chief Complaint E11.22 I12.9 N25.81 D63.1 R80.1 E87.5 N18.5 E11.22 n18.5 I12.9 N25.81 D63.1 R80.1 E87.5 Chief Complaint E11.22 I12.9 N25.81 D63.1 R80.1 E87.5 N18.5 E11.22 n18.5 I12.9 N25.81 D63.1 R80.1 E87.5 Have not slept in 3 days, Possible Anxiety Chief Complaint E11.22 I12.9 N25.81 D63.1 R80.1 E87.5 N18.5 E11.22 n18.5 I12.9 N25.81 D63.1 R80.1 E87.5 Have not slept in 3 days, Possible Anxiety N18.5 E11.22 I12.9 N25.81 D63.1 R80.1 E87.5 Chief Complaint E11.22 n18.5 I12.9 N 25.81 D63.1 R80.1 E87.5 Have not slept in 3 days, Possible Anxiety N18.5 E11.22 I12.9 N25.81 D63.1 R80.1 E87.5 High BS Chief Complaint Have not slept in 3 days, Possible Anxiety N18.5 E11.22 I12.9 N25.81 D63.1 R80.1 E87.5 High BS R Leg Swelling Chief Complaint N18.5 E11.22 I12.9 N 25.81 D63.1 R80.1 E87.5 High BS R Leg Swelling vomiting/low urine output Chief Complaint High BS R Leg Swelling vomiting/low urine output N18.5;E11.22;I12.9;N25.81;D63.1;E80.1;W87.5 Chief Complaint High BS R Leg Swelling vomiting/low urine output N18.5;E11.22;I12.9;N25.81;D63.1;E80.1;W87.5 abnormal labs, sent by Reason for Visit Acute hyperkalemia Chronic kidney disease Hypertension Chief Complaint High BS R Leg Swelling vomiting/low urine output N18.5;E11.22;I12.9;N25.81;D63.1;E80.1;W87.5 abnormal labs, sent by Reason for Visit Acute hyperkalemia Acute kidney injury superimposed on CKD Chronic kidney disease CKD (chronic kidney disease) stage 5, GFR less than 15 ml/min Hyperkalemia Hypertension Insulin dependent diabetes mellitus Metabolic acidosis [id number] Chief Complaint High BS R Leg Swelling vomiting/low urine output N18.5;E11.22;I12.9;N25.81;D63.1;E80.1;W87.5 abnormal labs, sent by dr CARPENTER Reason for Visit Acute hyperkalemia Acute kidney injury superimposed on CKD Chronic kidney disease CKD (chronic kidney disease) stage 5, GFR less than 15 ml/min Hyperkalemia Hypertension Insulin dependent diabetes mellitus Metabolic acidosis [id number] Chief Complaint DM E11.22 Chief Complaint DM E11.22 SOB Wheezing Chief Complaint E11.22 SOB Wheezing ESRD Reason for Visit [id number] Chief Complaint SOB Wheezing ESRD sob Reason for Visit [id number] Chief Complaint SOB Wheezing ESRD sob N18.6 Reason for Visit [id number] Chief Complaint SOB Wheezing ESRD sob N18.[address] Access; Vein Mapping Done At ESRD ESRD, Peritoneal Dialysis Catheter Dysfunction Reason for Visit [id number] Chief Complaint SOB Wheezing ESRD sob N18.[address] Access; Vein Mapping Done At ESRD ESRD, Peritoneal Dialysis Catheter Dysfunction ESRD, Peritoneal Dialysis Catheter Dysfunction Reason for Visit [id number] Chief Complaint ESRD sob N18.[address] Access; Vein Mapping Done At ESRD ESRD, Peritoneal Dialysis Catheter Dysfunction ESRD, Peritoneal Dialysis Catheter Dysfunction F/U LEFT ARM AVF CREATION abdominal wound fever, low blood pressure: post dialysis Reason for Visit [id number] Dependence on renal dialysis Chief Complaint ESRD sob N18.[address] Access; Vein Mapping Done At F ESRD ESRD, Peritoneal Dialysis Catheter Dysfunction ESRD, Peritoneal Dialysis Catheter Dysfunction F/U LEFT ARM AVF CREATION abdominal wound fever, low blood pressure: post dialysis fever, low blood pressure: post dialysis fever, low blood pressure: post dialysis fever, low blood pressure: post dialysis Reason for Visit Anemia of renal dise ase Benign hypertension with end-stage renal disease Diabetes [id number] Edema of right lower extremity End stage renal disease Fever Hyperparathyroidism Hypertension Hypomagnesemia Insulin dependent diabetes mellitus Sepsis SIRS (systemic inflammatory response syndrome) Type 2 diabetes mellitus with diabetic chronic kidney disease Ulcer of right foot Ulcer of right heel Vomiting Wound of right foot Chief Complaint ESRD sob N18.6 [address]eds Av Access; Vein Mapping Done At F ESRD ESRD, Peritoneal Dialysis Catheter Dysfunction ESRD, Peritoneal Dialysis Catheter Dysfunction F/U LEFT ARM AVF CREATION abdominal wound fever, low blood pressure: post dialysis fever, low blood pressure: post dialysis fever, low blood pressure: post dialysis fever, low blood pressure: post dialysis fever,sweating,nausea Reason for Visit Anemia of renal dise ase Benign hypertension with end-stage renal disease Diabetes [id number] Edema of right lower extremity End stage renal disease Fever Hyperparathyroidism Hypertension Hypomagnesemia Insulin dependent diabetes mellitus Sepsis SIRS (systemic inflammatory response syndrome) Type 2 diabetes mellitus with diabetic chronic kidney disease Ulcer of right foot Ulcer of right heel Vomiting Wound of right foot Chief Complaint ESRD sob N18.6 [address] Access; Vein Mapping Done At F ESRD ESRD, Peritoneal Dialysis Catheter Dysfunction ESRD, Peritoneal Dialysis Catheter Dysfunction F/U LEFT ARM AVF CREATION abdominal wound fever, low blood pressure: post dialysis fever, low blood pressure: post dialysis fever, low blood pressure: post dialysis fever, low blood pressure: post dialysis fever,sweating,nausea 4 WK FOLLOW UP; ARTERIAL LEFT ARM AVF 11:30A N18.5 Reason for Visit Edema of right lower extremity Fever Hypomagnesemia Sepsis SIRS (systemic inflammatory response syndrome) Vomiting Chief Complaint ESRD sob N18.6 [address] Access; Vein Mapping Done At F ESRD ESRD, Peritoneal Dialysis Catheter Dysfunction ESRD, Peritoneal Dialysis Catheter Dysfunction F/U LEFT ARM AVF CREATION abdominal wound fever, low blood pressure: post dialysis fever, low blood pressure: post dialysis fever, low blood pressure: post dialysis fever, low blood pressure: post dialysis fever,sweating,nausea 4 WK FOLLOW UP; ARTERIAL LEFT ARM AVF 11:30A N18.5 Reason for Visit Edema of right lower extremity Fever Hypomagnesemia Sepsis SIRS (systemic inflammatory response syndrome) Vomiting AV fistula End stage renal disease ESRD on hemodialysis Chief Complaint sob N18.6 [address] Access; Vein Mapping Done At F ESRD ESRD, Peritoneal Dialysis Catheter Dysfunction ESRD, Peritoneal Dialysis Catheter Dysfunction F/U LEFT ARM AVF CREATION abdominal wound fever, low blood pressure: post dialysis fever, low blood pressure: post dialysis fever, low blood pressure: post dialysis fever, low blood pressure: post dialysis fever,sweating,nausea 4 WK FOLLOW UP; ARTERIAL LEFT ARM AVF 11:30A N18.5 Reason for Visit Benign hypertension with end-stage renal disease Edema of right lower extremity Type 2 diabetes mellitus with diabetic chronic kidney disease Fever Hypomagnesemia Sepsis SIRS (systemic inflammatory response syndrome) Vomiting AV fistula End stage renal disease ESRD on hemodialysis Chief Complaint sob N18.[address] Access; Vein Mapping Done At F ESRD ESRD, Peritoneal Dialysis Catheter Dysfunction ESRD, Peritoneal Dialysis Catheter Dysfunction F/U LEFT ARM AVF CREATION abdominal wound fever, low blood pressure: post dialysis fever, low blood pressure: post dialysis fever, low blood pressure: post dialysis fever, low blood pressure: post dialysis fever,sweating,nausea 4 WK FOLLOW UP; ARTERIAL LEFT ARM AVF 11:30A N18.5 Right Heel Ulceration Reason for Visit Benign hypertension with end-stage renal disease Edema of right lower extremity Type 2 diabetes mellitus with diabetic chronic kidney disease Fever Hypomagnesemia Sepsis SIRS (systemic inflammatory response syndrome) Vomiting AV fistula End stage renal disease ESRD on hemodialysis Chief Complaint ESRD ESRD, Peritoneal Dialysis Catheter Dysfunction ESRD, Peritoneal Dialysis Catheter Dysfunction F/U LEFT ARM AVF CREATION abdominal wound fever, low blood pressure: post dialysis fever, low blood pressure: post dialysis fever, low blood pressure: post dialysis fever, low blood pressure: post dialysis fever,sweating,nausea 4 WK FOLLOW UP; ARTERIAL LEFT ARM AVF 11:30A N18.5 Right Heel Ulceration 4 WK FOLLOW UP; D/C HD CATH Reason for Visit Benign hypertension with end-stage renal disease Edema of right lower extremity Type 2 diabetes mellitus with diabetic chronic kidney disease Fever Hypomagnesemia Sepsis SIRS (systemic inflammatory response syndrome) Vomiting AV fistula End stage renal disease ESRD on hemodialysis Chief Complaint F/U LEFT ARM AVF CRE ATION abdominal wound fever, low blood pressure: post dialysis fever, low blood pressure: post dialysis fever, low blood pressure: post dialysis fever, low blood pressure: post dialysis fever,sweating,nausea 4 WK FOLLOW UP; ARTERIAL LEFT ARM AVF 11:30A N18.5 Right Heel Ulceration 4 WK FOLLOW UP; D/C HD CATH Ulcer of Right Heel Reason for Visit Benign hypertension with end-stage renal disease Edema of right lower extremity Type 2 diabetes mellitus with diabetic chronic kidney disease Fever Hypomagnesemia Sepsis SIRS (systemic inflammatory response syndrome) Vomiting AV fistula End stage renal disease ESRD on hemodialysis ESRD on hemodialysis Chief Complaint mental eval Chief Complaint Admit Date R Leg Swelling/Pain August 28, 2024 10:28pm rt foot pain October 29, 2024 7:28pm Chief Complaint Admit Date rt foot pain October 29, 2024 7:28pm rt leg swelling November 27, 2024 10: 38pm bilat foot pain December 29, 2024 4:0 3pm Chief Complaint Admit Date rt foot pain October 29, 2024 7:28pm rt leg swelling November 27, 2024 10: 38pm bilat foot pain December 29, 2024 4:0 3pm swelling in rt leg January 01, 2025 8:3 6pm Chief Complaint Admit Date rt leg swelling November 27, 2024 10: 38pm bilat foot pain December 29, 2024 4:0 3pm swelling in rt leg January 01, 2025 8:[address] Vázquez back pain and neuropathy February 13, 2025 8:20am Reason for Visit Admit Date Diabetic peripheral neuropathy February 8:20am Lumbar radiculopathy February 13, 2025 8:2 0am Other chronic pain February 13, 2025 8:20 am Chief Complaint Admit Date bilat foot pain December 29, 2024 4:0 3pm swelling in rt leg January 01, 2025 8:[address] Vázquez back pain and neuropathy February 13, 2025 8:20am Amb Documentation February 20, 2025 8:27 am f/u and med refill for chronic pain March 07, 2025 3:40pm Reason for Visit Admit Date Diabetic peripheral neuropathy February 8:20am Lumbar radiculopathy February 13, 2025 8:2 0am Other chronic pain February 13, 2025 8:20 am Lumbar radiculopathy March 07, 2025 3:40 pm Other chronic pain March 07, 2025 3:40p m Chief Complaint Admit Date bilat foot pain December 29, 2024 4:0 3pm swelling in rt leg January 01, 2025 8:[address] Vázquez back pain and neuropathy February 13, 2025 8:20am Amb Documentation February 20, 2025 8:27 am f/u and med refill for chronic pain March 07, 2025 3:40pm ran out of pain rx March 11, 2025 10:16 am Additional Source Comments (unrecognized sect ion and content) No Status Records FoundNo Status Records FoundNo Status Records FoundNo Status Records FoundNo Status Records FoundNo Status Records FoundNo Status Records FoundNo Status Records FoundNo Status Records FoundNo Status Records FoundNo Status Records FoundNo Status Records Found INFORMATION SOURCE (unrecogn ized section and content) DATE CREATED AUTHOR 04/03/2020 [facility] DATE CREATED AUTHOR AUTHOR'S ORGANIZ ATION 10/24/2021 [facility] DATE CREATED AUTHOR AUTHOR'S ORGANIZ ATION 05/14/2022 [facility] DATE CREATED AUTHOR AUTHOR'S ORGANIZ ATION 10/10/2022 [facility] DATE CREATED AUTHOR AUTHOR'S ORGANIZ ATION 12/10/2022 [facility] DATE CREATED AUTHOR AUTHOR'S ORGANIZ ATION 10/15/2024 [facility] DATE CREATED AUTHOR AUTHOR'S ORGANIZ ATION 12/07/2024 [facility] DATE CREATED AUTHOR AUTHOR'S ORGANIZ ATION 12/31/2024 [facility] DATE CREATED AUTHOR AUTHOR'S ORGANIZ ATION 02/04/2025 [facility] DATE CREATED AUTHOR AUTHOR'S ORGANIZ ATION 02/04/2025 [facility] DATE CREATED AUTHOR AUTHOR'S ORGANIZ ATION 02/06/2025 [facility] DATE CREATED AUTHOR AUTHOR'S ORGANIZ ATION 03/14/2025 [facility] REASON FOR VISIT (unrecogniz ed section and content) Reason Comments Med Refill Reason Comments Foot Pain Patient complains of bilateral foot pain that has been ongoing for the past few days. Patient is MWF dialysis, skipped today due to increased pain. Reason Onset Date Comments Med Refill 11/27/2024 Reason Onset Date Comments Referral 10/04/2024 Reason Comments Vomiting Reason Comments Cellulitis Reason Comments ER Follow-up Reason Comments Anxiety Reason Onset Date Comments Med Refill 04/26/2024 Reason Comments Diabetes TKM Cancelled Reason Comments PD cath removal Last seen 11/2022 fo r PD cath Placement NEEDS AV ACCESS; [place] [facility] [place], Need for dialysis accessWMN VoicemailTKM Pump start and U-500 refillTKM Pump orderTKM refill requestlab result/order for tandem pumplab results,suppliesTKM LyricaTKM - REFILL REQUEST FOR LYRICAletter for [facility]ClinicalCKD and HTNCKD Care Teams (unrecognized sec tion and content) Team Status: Active Member Role Status Dates Idania Ricketts DO Primary Care Provider Active Team Status: Inactive Member Role Status Dates Idania Ricketts DO Primary Care Provider Active Start: November 08, 2023 End: November 08, 2023 Ramirez Jean MD Attending Provider Active S tart: November 08, 2023 End: November 08, 2023 Team Status: Inactive Member Role Status Dates Idania Ricketts DO Primary Care Provider Active Start: November 15, 2023 End: November 15, 2023 Flakito High DO Attending Provider, Referring Provider Active Start: November 15, 2023 End: November 15, 2023 Team Status: Inactive Member Role Status Dates Idania Ricketts DO Primary Care Provider Active Start: November 20, 2023 End: November 23, 2023 Chong Cabrera DO Emergency Provider Active Start: November 20, 2023 End: November 23, 2023 Buddy Murguia DO Admit Provider Active Start: November 20, 2023 End: November 23, 2023 Yocasta Villalba MD Other Provider Active Start: Maeve wheeler 2023 End: November 23, 2023 Chintan Hernández MD Other Provider Active Start: November 20, 2023 End: November 23, 2023 Bijan Vu DPM Other Provider Active Sta rt: November 20, 2023 End: November 23, 2023 Amy Escudero DO Attending Provider Active Sta rt: November 20, 2023 End: November 23, 2023 Team Status: Active Member Role Status Dates Idania Ricketts DO Primary Care Provider Active Start: November 20, 2023 End: November 23, 2023 Chong Cabrera DO Emergency Provider Active Start: November 20, 2023 End: November 23, 2023 Buddy Murguia DO Admit Provider, Atte nding Provider, Other Provider Active Start: November 20, 2023 End: November 23, 2023 Team Status: Active Member Role Status Dates Idania Ricketts DO Primary Care Provider Active Start: November 21, 2023 End: November 23, 2023 Chong Cabrera DO Emergency Provider Active Start: November 21, 2023 End: November 23, 2023 Buddy Murguia DO Admit Provider Active Start: November 21, 2023 End: November 23, 2023 Arnol Calloway MD Other Provider Active Start: November 21, 2023 End: November 23, 2023 Yocasta Villalba MD Attending Provider, Other Provider Active Start: November 21, 2023 End: November 23, 2023 Team Status: Active Member Role Status Dates Idania Ricketts DO Primary Care Provider Active Start: November 22, 2023 End: November 23, 2023 Chong Cabrera DO Emergency Provider Active Start: November 22, 2023 End: November 23, 2023 Buddy Murguia DO Admit Provider Active Start: November 22, 2023 End: November 23, 2023 Yocasta Villalba MD Other Provider Active Start: [facility] 2023 End: November 23, 2023 Chintan Hernández MD Attending Provider, Other Provider Active Start: November 22, 2023 End: November 23, 2023 Bijan Vu DPM Other Provider Active Sta rt: November 22, 2023 End: November 23, 2023 Amy Escudero DO Other Provider Active Start: November 22, 2023 End: November 23, 2023 Team Status: Inactive Member Role Status Dates Idania Ricketts DO Primary Care Provider Active Start: November 25, 2023 End: November 25, 2023 Donnie Bell DO Emergency Provider Active St art: November 25, 2023 End: November 25, 2023 Team Status: Inactive Member Role Status Dates Idania Ricketts DO Primary Care Provider Active Start: December 06, 2023 End: December 06, 2023 Ramirez Jean MD Attending Provider Active S tart: December 06, 2023 End: December 06, 2023 Team Status: Inactive Member Role Status Dates Idania Ricketts DO Primary Care Provider Active Start: December 24, 2023 End: December 24, 2023 Gi Mondragon DPM Attending Provider Active Start: December 24, 2023 End: December 24, 2023 Team Status: Inactive Member Role Status Dates Idania Ricketts DO Primary Care Provider Active Start: January 03, 2024 End: January 03, 2024 Ramirez Jean MD Attending Provider Active S tart: January 03, 2024 End: January 03, 2024 Team Status: Inactive Member Role Status Dates Idania Ricketts DO Primary Care Provider Active Start: February 04, 2024 End: February 04, 2024 Gi Mondragon DPM Attending Provider Active Start: February 04, 2024 End: February 04, 2024 Team Status: Active Member Role Status Dates Idania Ricketts DO Primary Care Provider Active Start: October 06, 2023 Ramirez Jean MD Attending Provider, Other Provider Active Start: October 06, 2023 Team Status: Inactive Member Role Status Dates Idania Ricketts DO Primary Care Provider Active Start: October 18, 2023 End: October 18, 2023 Flakito High DO Attending Provider Active Start : October 18, 2023 End: October 18, 2023 Team Status: Inactive Member Role Status Dates Idania Ricketts DO Primary Care Provider Active Start: October 27, 2023 End: October 27, 2023 Flakito High DO Attending Provider Active Start : October 27, 2023 End: October 27, 2023 Team Status: Inactive Member Role Status Dates Idania Ricketts DO Primary Care Provider Active Ada Uriostegui MD Attending Provider Active Team Status: Inactive Member Role Status Dates Idania Ricketts DO Primary Care Provider Active Yosef Castillo DO Emergency Provider Active Team Status: Inactive Member Role Status Dates Idania Monahanlizbethick , DO Primary Care Provider Active Yolie Noe , DO RES Active Evans Narayanan Jr, MD Emergency Provider Active Team Status: Inactive Member Role Status Dates Idania Petznick , DO Primary Care Provider Active Evans Narayanan Jr, MD Emergency Provider Active Team Status: Inactive Member Role Status Dates Idania Petznick , DO Primary Care Provider Active Mary Hill APRN Emergency Provider Active Team Status: Active Member Role Status Dates Diania Petznick , DO Primary Care Provider Active Delano Mnodragon MD Emergency Provider Active Chintan Brewster , DO Admit Provider, Attending Provider Active Team Status: Inactive Member Role Status Dates Idania Petznick , DO Primary Care Provider Active Delano Mondragon MD Emergency Provider Active Chintan Brewster , DO Admit Provider, Attending Provider Active Jf Liu MD Other Provider Active Ada Uriostegui MD Other Provider Active Zenon Cage MD Other Provider Active Conor Mcnamara MD Other Provider Active Yocasta Villalba MD Other Provider Active Team Status: Inactive Member Role Status Dates Idania Petlizbethick , DO Primary Care Provider Active Chintan Brewster DO Attending Provider Active Team Status: Active Member Role Status Dates Idania Petlizbethick , DO Primary Care Provider Active Michelle Kennedy APRN Attending Provider Active Team Status: Inactive Member Role Status Dates Idania Petlizbethick , DO Primary Care Provider Active Donnie Bell DO Emergency Provider Active Team Status: Inactive Member Role Status Dates Idania Petlizbethick , DO Primary Care Provider Active Ramirez Jean MD Attending Provider Active Team Status: Inactive Member Role Status Dates Idania Petlizbethick , DO Primary Care Provider Active Start: August 09, 2023 End: August 09, 2023 Donnie Bell DO Emergency Provider Active St art: August 09, 2023 End: August 09, 2023 Team Status: Inactive Member Role Status Dates Idania Petlizbethick , DO Primary Care Provider Active Start: September 16, 2023 End: September 16, 2023 Ramirez Jean MD Attending Provider Active S tart: September 16, 2023 End: September 16, 2023 Team Status: Inactive Member Role Status Dates Idania Petlizbethick , DO Primary Care Provider Active Start: September 25, 2023 End: September 26, 2023 Chintan Sweet MD Emergency Provider Active St art: September 25, 2023 End: September 26, 2023 Team Status: Inactive Member Role Status Dates Idania Ricketts DO Primary Care Provider Active Start: September 27, 2023 End: September 27, 2023 Augusta Hill MD Attending Provider Active Start: September 27, 2023 End: September 27, 2023 Check Processor Relationship Specialty Start Date End Date Idania Ricketts, DO [address] [place] [address] PCP - [facility] 09/09/22 Idania Ricketts, DO [address] [place] [address] PCP - [facility] [employer] 02/04/23 Idania Ricketts, DO [address] [place] [address] PCP - General Family Medicine 09/20/23 Check Processor Relationship Specialty Start Date End Date Idania Ricketts, DO [address] [place] [address] [facility] - [facility] 09/09/22 Idania Ricketts, DO [address] [place] [address] PCP - [facility] [employer] 02/04/23 Idania Ricketts, DO [address] [place] [address] PCP - General Family Medicine 09/20/23 Team Status: Inactive Member Role Status Dates Ramirez Jean MD Attending Provider Active S tart: October 04, 2023 End: October 04, 2023 Check Processor Relationship Specialty Start Date End Date Idania Ricketts DO [address] [place] [address] PCP - [facility] 09/09/22 Idania Ricketts Maeve, DO [address] [place] [address] PCP - Medical [facility] 02/04/23 Idania Ricketts Maeve, DO [address] [place] [address] PCP - General Family Medicine 09/20/23 Team Status: Active Member Role Status Dates Idania Ricketts DO Primary Care Provider Active Start: November 15, 2023 Flakito High DO Attending Provider, Referring Provider Active Start: November 15, 2023 Team Status: Active Member Role Status Dates Idania Ricketts DO Primary Care Provider Active Start: November 20, 2023 Chong Cabrera DO Emergency Provider Active Start: November 20, 2023 Buddy Murguia DO Admit Provider, Atte nding Provider Active Start: November 20, 2023 Team Status: Active Member Role Status Dates Idania Ricketts DO Primary Care Provider Active Start: November 20, 2023 Chong Cabrera DO Emergency Provider Active Start: November 20, 2023 Buddy Murguia DO Admit Provider, Atte nding Provider, Other Provider Active Start: November 20, 2023 Team Status: Active Member Role Status Dates Idania Ricketts DO Primary Care Provider Active Start: November 21, 2023 Chong Cabrera DO Emergency Provider Active Start: November 21, 2023 Buddy Murguia DO Admit Provider Active Start: November 21, 2023 Arnol Calloway MD Other Provider Active Start: November 21, 2023 Yocasta Villalba MD Attending Provider, Other Provider Active Start: November 21, 2023 Team Status: Active Member Role Status Dates Idania Ricketts DO Primary Care Provider Active Start: November 22, 2023 Chong Cabrera DO Emergency Provider Active Start: November 22, 2023 Buddy Murguia DO Admit Provider Active Start: November 22, 2023 Yocasta Villalba MD Other Provider Active Start: 2023 Chintan Hernández MD Attending Provider, Other Provider Active Start: November 22, 2023 Bijan Vu DPM Other Provider Active Sta rt: November 22, 2023 Amy Escudero DO Other Provider Active Start: November 22, 2023 Team Status: Active Member Role Status Dates Idania Ricketts DO Primary Care Provider Active Start: December 06, 2023 Ramirez Jean MD Attending Provider Active S tart: December 06, 2023 Team Status: Inactive Member Role Status Dates Idania Ricketts DO Primary Care Provider Active Start: November 15, 2023 End: December 21, 2023 Flakito High DO Attending Provider, Referring Provider Active Start: November 15, 2023 End: December 21, 2023 Team Status: Inactive Member Role Status Dates Idania Ricketts DO Primary Care Provider Active Start: May 15, 2024 End: May 15, 2024 Chong Cabrera DO Emergency Provider Active Start: May 15, 2024 End: May 15, 2024 Check Processor Relationship Specialty Start Date End Date Idania Ricketts DO [address] [place] [address] PCP - General Family Medicine 09/20/23 Check Processor Relationship Specialty Start Date End Date Idania Ricketts DO [address] [place] [address] PCP - General Family Medicine 09/20/23 Check Processor Relationship Specialty Start Date End Date Idania Ricketts DO [address] [place] [address] PCP - General Family Medicine 09/20/23 Idania Ricketts DO [address] [place] [address] [facility] - [facility] 09/06/23 09/05/24 Check Processor Relationship Specialty Start Date End Date Idania Ricketts, DO [address] [place] [address] PCP - General Family Medicine 09/20/23 Idania Ricketts, DO [address] [place] [address] PCP - [facility] 09/06/23 09/05/24 Check Processor Relationship Specialty Start Date End Date Idania Ricketts, DO [address] [place] [address] PCP - General Family Medicine 09/20/23 Idania Ricketts, DO [address] [place] [address] PCP - [facility] 09/06/23 09/05/24 Check Processor Relationship Specialty Start Date End Date Idania Ricketts, DO [address] [place] [address] PCP - General Family Medicine 09/20/23 Check Processor Relationship Specialty Start Date End Date Idania Ricketts, DO [address] [place] [address] PCP - General Family Medicine 09/20/23 Check Processor Relationship Specialty Start Date End Date Idania Ricketts, DO [address] [place] [address] PCP - General Family Medicine 09/20/23 Check Processor Relationship Specialty Start Date End Date Idania Ricketts, DO [address] [place] [address] PCP - General Family Medicine 09/20/23 Check Processor Relationship Specialty Start Date End Date Idania Ricketts, DO [address] [place] [address] PCP - General Family Medicine 09/20/23 Check Processor Relationship Specialty Start Date End Date Idania Ricketts, DO [address] [place] [address] PCP - General Family Medicine 09/20/23 Idania Ricketts, DO [address] [place] [address] PCP - [facility] 09/06/23 09/05/24 Check Processor Relationship Specialty Start Date End Date Idania Ricketts, DO [address] [place] [address] PCP - General Family Medicine 09/20/23 Idania Ricketts, DO [address] [place] [address] PCP - [facility] 09/06/23 09/05/24 Check Processor Relationship Specialty Start Date End Date Idania Ricketts, DO [address] [place] [address] PCP - General Family Medicine 09/20/23 Check Processor Relationship Specialty Start Date End Date Idania Ricketts, DO [address] [place] [address] PCP - General Family Medicine 09/20/23 Check Processor Relationship Specialty Start Date End Date Idania Ricketts DO [address] [place] [address] PCP - [facility] Medicine 09/20/23 Check Processor Relationship Specialty Start Date End Date Idania Ricketts DO [address] [place] [address] PCP - [facility] Medicine 09/20/23 Check Processor Relationship Specialty Start Date End Date Idania Ricketts DO [address] [place] [address] PCP - [facility] Medicine 09/20/23 Check Processor Relationship Specialty Start Date End Date Idania Ricketts DO [address] [place] [address] PCP - [facility] Medicine 09/20/23 Team Status: Inactive Member Role Status Dates Idania DO Marilin Primary Care Provider Active Start: August 28, 2024 End: August 29, 2024 Delano Mondragon MD Emergency Provider Active Star t: August 28, 2024 End: August 29, 2024 Team Status: Active Member Role Status Dates Idania DO Marilin Primary Care Provider Active Start: October 29, 2024 Will Cerna PA-C Emergency Provider Active Start: October 29, 2024 Maxime Magana DO Admit Provider , Attending Provider Active Start: October 29, 2024 Chintan Hernández MD Other Provider Active Start: October 29, 2024 Jf Liu MD Other Provider Active Start: ebruary 2024 Marielos Black NP-Smitha Other Provider Active Start: October 29, 2024 Ada Uriostegui MD Other Provider Active Start: Fe bruary 2024 Yocasta Villalba MD Other Provider Active Start: ebruary 2024 Gi Mondragon DPM Other Provider Active Star t: October 29, 2024 Team Status: Inactive Member Role Status Dates Idania Ricketts DO Primary Care Provider Active Start: October 29, 2024 End: October 30, 2024 Will Cerna PA-C Emergency Provider Active Start: October 29, 2024 End: October 30, 2024 Maxime Magana DO Admit Provider , Attending Provider Active Start: October 29, 2024 End: October 30, 2024 Chintan Hernández MD Other Provider Active Start: October 29, 2024 End: October 30, 2024 Jf Liu MD Other Provider Active Start: [facility] 2024 End: October 30, 2024 DARCI Concepcion Other Provider Active Start: October 29, 2024 End: October 30, 2024 Ada Uriostegui MD Other Provider Active Start: [facility] 2024 End: October 30, 2024 Yocasta Villalba MD Other Provider Active Start: [facility] 2024 End: October 30, 2024 Gi Mondragon DPM Other Provider Active Star t: October 29, 2024 End: October 30, 2024 Check Processor Relationship Specialty Start Date End Date Idania Ricketts DO [address] [place] [address] PCP - [facility] 09/20/23 Team Status: Inactive Member Role Status Dates Idania Ricketts DO Primary Care Provider Active Start: November 27, 2024 End: November 28, 2024 Venkat Burgos DO Emergency Provider Active Sta rt: November 27, 2024 End: November 28, 2024 Check Processor Relationship Specialty Start Date End Date Idania Ricketts DO [address] [place] [address] PCP - [facility] 09/20/23 Team Status: Inactive Member Role Status Dates Idania Ricketts DO Primary Care Provider Active Start: December 29, 2024 End: December 29, 2024 Declan Silverio APRN Emergency Provider Active Start: December 29, 2024 End: December 29, 2024 Team Status: Inactive Member Role Status Dates Idania Ricketts DO Primary Care Provider Active Start: January 01, 2025 End: January 02, 2025 Ivana Salcedo DO Emergency Provider Active Start: January 01, 2025 End: January 02, 2025 Team Status: Inactive Member Role Status Dates Idania Ricketts DO Primary Care Provi caesar, Referring Provider Active Start: February 13, 2025 End: February 13, 2025 Jey Ramos MD Attending Provider Active Sta rt: February 13, 2025 End: February 13, 2025 Check Processor Relationship Specialty Start Date End Date Idania Ricketts DO [address] [place] [address] PCP - General Family Medicine 09/20/23 Team Status: Inactive Member Role Status Dates Idania Ricketts DO Primary Care Provider Active Start: February 13, 2025 End: February 13, 2025 Idania Ricketts DO Referring Provider Active Start: February 13, 2025 End: February 13, 2025 Jey Ramos MD Attending Provider Active Sta rt: February 13, 2025 End: February 13, 2025 Team Status: Active Member Role Status Dates Idania Ricketts DO Primary Care Provider Active Start: February 20, 2025 Nuria Fermin LPN Attending Provider Active Start: February 20, 2025 Team Status: Inactive Member Role Status Dates Idania Ricketts DO Primary Care Provider Active Start: March 07, 2025 End: March 07, 2025 Jey Ramos MD Attending Provider Active Sta rt: March 07, 2025 End: March 07, 2025 Team Status: Inactive Member Role Status Dates Idania Ricketts DO Primary Care Provider Active Start: March 11, 2025 End: March 11, 2025 Savanah Anthony APRN Emergency Provider Active Start: March 11, 2025 End: March 11, 2025 Goals (unrecognized section and content) Goals may be documented in a n alternate section Ordered Prescriptions (unrec ognized section and content) Prescription Sig Dispense Quantity Refills Last Filled Start Date End Date pregabalin (LYRICA) 75 MG capsuleIndications :Idiopathic peripheral neuropathy Take 1 capsule by mouth daily for 5 doses. Max Daily Amount: 75 mg 5 capsule 02/02/2025 Scheduled Active and Recently Administ ered Medications (unrecognized section and content) Medication Order 01/31/2025 02/01/2025 02/02/2025 pregabalin (LYRICA) [...] (Given - Provid er: Lamont Parry RN) FOR RECORDS PERTAINING TO PATIENTS WHO ARE OR HAVE BEEN ENROLLED IN A CHEMICAL DEPENDENCY/SUBSTANCEABUSE PROGRAM, SOME INFORMATION MAY BE OMITTED. This clinical summary was aggregated from multiple sources. Caution should be exercised in using it in the provision of clinical care. This summary normalizes information from multiple sources, and as a consequence, information in this document may materially change the coding, format and clinical context of patient data. In addition, data may be omitted in some cases. CLINICAL DECISIONS SHOULD BE BASED ON THE PRIMARY CLINICAL RECORDS. [employer] provides no warranty or guarantee of the accuracy or completeness of information in this document.
[2025-03-24 23:56] VITALS: BP 172/78; PULSE 87; TEMP 36.7; O2SAT 98; BMI 37.2
--- NOTE | 2025-03-25 01:04 | ED.EXTPRO1 ---
HPI - Extremity Problem General Chief complaint: Extremity Problem, Nontraumatic Stated complaint: pain in feet Time Seen by Provider: 03/24/25 23:53 Source: patient Mode of arrival: walk-in Limitations: no limitations History of Present Illness HPI Narrative: cc - feet hurt Pt with chronic bilateral foot burris secondary to diabetic neuropathy returns complaining of pain to both feet. He said that he just saw Dr Ramos -Pain Management in [place] - but they didn't change anything . he is currently taking Lyrica for the pain. He has end stage kidney disease and cannot take NSAIDs. He apparently did not tolerate gabapentin, as he is no longer on that. He is aware that his burris management contract prevents him from receiving a prescription for controlled pain meds. Chart review shows that he had three prior visits (in this EMR) for the same complaint and received prescriptions for Redmond. He also apparently told Dr Greenfield that he had a prescription for 90 (ninety) pain tabs falsely written in his name and not filled by him... Related Data Home Medications ?Medication ?Instructions ?Recorded ?Confirmed B complex 11-folic acid 1 mg-C 100 1 tab PO DAILY 08/29/24 02/07/25 mg-biotin 300 mcg-zinc 50 mg tablet (Dialyvite) anastrozole 1 mg tablet 1 mg PO DAILY 08/29/24 02/07/25 aspirin 81 mg chewable tablet 1 tab PO DAILY 08/29/24 02/07/25 atorvastatin 20 mg tablet 20 mg PO DAILY 08/29/24 02/07/25 calcitriol 0.25 mcg capsule 0.25 mcg PO QWEEK 08/29/24 02/07/25 carvedilol 6.25 mg tablet 6.25 mg PO Q12H 08/29/24 02/07/25 escitalopram oxalate 10 mg tablet 10 mg PO DAILY 08/29/24 02/07/25 furosemide 80 mg tablet 80 mg PO Q12H 08/29/24 02/07/25 insulin glargine 100 unit/mL (3 60 unit subcut QAM 08/29/24 02/07/25 mL) subcutaneous pen (Lantus Solostar U-100 Insulin) insulin lispro 100 unit/mL 10 unit subcut .meal 08/29/24 02/07/25 subcutaneous pen (Humalog KwikPen (U-100) Insulin) levothyroxine 100 mcg tablet 100 mcg PO DAILY 08/29/24 02/07/25 pregabalin 150 mg capsule 150 mg PO TID 08/29/24 01/02/25 sevelamer carbonate 800 mg tablet 800 mg PO TID 08/29/24 02/07/25 tenapanor 30 mg tablet (Xphozah) 30 mg PO DAILY 08/29/24 02/07/25 testosterone 1.62 % (20.25 mg/1.25 1 packet topical DAILY 08/29/24 02/07/25 gram) transdermal gel packet trazodone 50 mg tablet 50 mg PO QPM 08/29/24 02/07/25 methocarbamol 500 mg tablet 500 mg PO Q8H PRN back spasms 01/02/25 02/07/25 midodrine 10 mg tablet 10 mg PO .during dialysis PRN low 01/02/25 02/07/25 bp Allergies Allergy/AdvReac Type Severity Reaction Status Date / Time vancomycin AdvReac Severe rash Verified 03/24/25 23:59 adhesive AdvReac Intermediate rash Verified 03/24/25 23:59 latex AdvReac Mild Rash Verified 03/24/25 23:59 sunflower seed AdvReac Mild Congested Verified 03/24/25 23:59 PFSH PFSH Medical History (Updated 03/25/25 @ 01:11 by Johnny Reno) Diabetes ?E11.9 - Type 2 diabetes mellitus without complications (ICD-10) Hypertension ?I10 - Essential (primary) hypertension (ICD-10) Leukemia ?C95.90 - Leukemia, 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 (ICD-10) Surgical History (Updated 08/29/24 @ 04:11 by Ruby James) H/O foot surgery ?Z98.890 - Other specified postprocedural states (ICD-10) H/O right heart catheterization ?Z98.890 - Other specified postprocedural states (ICD-10) Social History Little interest or pleasure in doing things: not at all Feeling down, depressed, or hopeless: not at all Exam Narrative Exam Narrative: Nurses notes and vital signs reviewed and patient is not hypoxic. afebrile General: Well-appearing and in no apparent distress. Skin: Warm, dry, no pallor noted. No rash. Eye: No scleral icterus. Ears, Nose, Mouth, and Throat: Oral mucosa is moist Cardiovascular: Normal peripheral perfusion. Respiratory: No accessory muscle use or respiratory distress. Musculoskeletal: Both lower extremities normal ROM, no calf or popliteal tenderness, trace to 1+ nonpitting bilateral lower extremity edema/swelling. Right foot has a healing ulcer noted at the plantar surface of the foot correlating with the first MTP. He also has callused and moderately cracked heel with some dried blood but no cellulitis, purulent discharge or other sign of infection. Neurological: A&O x4. No cranial nerve dysfunction observed. No truncal ataxia. Moves all extremities. Sensation intact. Psychiatric: Cooperative and interactive. Normal mood and affect. Constitutional Vital Signs, click to edit/add: Last Vital Signs Temp 98.1 F 03/24/25 23:56 Pulse 87 03/24/25 23:56 Resp 16 03/24/25 23:56 BP 172/78 H 03/24/25 23:56 Pulse Ox 98 03/24/25 23:56 O2 Del Method Room Air 03/24/25 23:56 Course Vital Signs Vital signs: Vital Signs Temperature 98.1 F 03/24/25 23:56 Pulse Rate 87 03/24/25 23:56 Respiratory Rate 16 03/24/25 23:56 Blood Pressure 172/78 H 03/24/25 23:56 Pulse Oximetry 98 03/24/25 23:56 Oxygen Delivery Method Room Air 03/24/25 23:56 Temperature 98.1 F 03/24/25 23:56 Pulse Rate 87 03/24/25 23:56 Respiratory Rate 16 03/24/25 23:56 Blood Pressure 172/78 H 03/24/25 23:56 Pulse Oximetry 98 03/24/25 23:56 Oxygen Delivery Method Room Air 03/24/25 23:56 MDM - Extremity (Nontraumatic) MDM Narrative Medical decision making narrative: Patient presents for acute exacerbation of chronic pain in both feet, secondary to diabetic neuropathy. He already sees pain management and is aware that he cannot get prescribed any additional controlled substances. He was given a Redmond in the emergency department to take now an additional 1 to take at home in 4 to 6 hours. It was reiterated to him that he needs to follow-up with pain management and if he chooses to come to the emergency department, I recommended that he come in during the weekdays and during daytime shift so that the emergency medicine physician can coordinate with his pain management physician. Discharge Plan Discharge Chief Complaint: Extremity Problem, Nontraumatic Clinical Impression: Diabetic neuropathy, Bilateral foot pain, Chronic pain Patient Disposition: Home, Self-Care Time of Disposition Decision: 01:11 Prescriptions / Home Meds: No Action methocarbamol 500 mg tablet 500 mg PO Q8H PRN (Reason: back spasms) midodrine 10 mg tablet 10 mg PO .during dialysis PRN (Reason: low bp) anastrozole 1 mg tablet 1 mg PO DAILY aspirin 81 mg tablet,chewable 1 tab PO DAILY atorvastatin 20 mg tablet 20 mg PO DAILY Dialyvite [id number] vt-cm-qzm-mg tablet 1 tab PO DAILY calcitriol 0.25 mcg capsule 0.25 mcg PO QWEEK carvedilol 6.25 mg tablet 6.25 mg PO Q12H escitalopram oxalate 10 mg tablet 10 mg PO DAILY pregabalin 150 mg capsule 150 mg PO TID furosemide 80 mg tablet 80 mg PO Q12H insulin glargine [Lantus Solostar U-100 Insulin] 100 unit/mL (3 mL) insulin pen 60 unit SUBCUT QAM insulin lispro [Humalog KwikPen Insulin] 100 unit/mL insulin pen 10 unit SUBCUT .meal Patient Comments: unknown ? levothyroxine 100 mcg tablet 100 mcg PO DAILY sevelamer carbonate 800 mg tablet 800 mg PO TID Xphozah 30 mg tablet 30 mg PO DAILY testosterone 1.62 % (20.25 mg/1.25 gram) gel in packet 1 packet topical DAILY trazodone 50 mg tablet 50 mg PO QPM Print Language: Iranian Instructions: Chronic Pain (ED), Foot Care for People with Diabetes (ED), Diabetic Neuropathy (ED) Additional Instructions: See Dr Ramos (Pain Mgmt) for follow up Referrals: ANGEL RICKETTS [Primary Care Provider, Family Practice] - 1 week
[2025-03-25] MEDS: HYDROCODONE/ACET 5-325 MG TABLET 1 TAB PO ×2 (01:22)
== END 2025-03-25 01:27 | disposition home or self-care (01) ==
PROVIDERS: Emergency Provider Emergency Medicine; PCP Family Medicine
DX: E11.40 Type 2 diabetes mellitus with diabetic neuropathy, unspecified (principal); Z79.899 Other long term (current) drug therapy; E11.22 Type 2 diabetes mellitus with diabetic chronic kidney disease; N18.6 End stage renal disease; Z79.4 Long term (current) use of insulin; M79.671 Pain in right foot; M79.672 Pain in left foot; G89.29 Other chronic pain
CPT/HCPCS: 99283

== ENCOUNTER 2025-04-04 10:07 | Emergency (ER) | payer MEDICARE, MEDICAID, SELFPAY ==
[2025-04-04 10:12] VITALS: BP 150/62; PULSE 78; TEMP 37.1; O2SAT 98; BMI 35.4
[2025-04-04] MEDS: HYDROMORPHONE HCL 1 MG/ML CARTRIDGE 2 MG IM (14:23)
[2025-04-04] MEDS: KETOROLAC TROMETHAMINE 30 MG/ML VIAL IM (14:23)
[2025-04-04] MEDS: METHOCARBAMOL 500 MG TABLET PO (14:24)
--- NOTE | 2025-04-04 14:30 | ED.GENADUL1 ---
HPI HPI - General Adult General Chief complaint: Extremity Problem, Nontraumatic Stated complaint: lower extremity pain Time Seen by Provider: 04/04/25 14:11 Source: patient Mode of arrival: walk-in Limitations: no limitations History of Present Illness HPI narrative: Patient is a 55-year-old male who is presenting to the ER with acute on chronic bilateral lower thoracic pain, bilateral lumbar pain, bilateral lumbar radiculopathy. No saddle anesthesia or cauda equina. Patient was waiting a lengthy amount of time secondary to ER volume. Patient's sister is at bedside, she can drive home. Patient just had a MRI several weeks ago. Patient has a appointment tomorrow with pain management in [place]. Patient has not seen a orthopedic spine or neurosurgeon yet. Patient states has been having this type of pain for 30+ years. Patient has never had lumbar surgery. Patient's PCP will not prescribe him pain medication. Patient uses nerve medication and [id number] medication to help with pain. No new injury, no new fall. Patient is hoping for pain treatment until he can see pain management tomorrow appointment. All systems are negative except as noted/marked. All systems reviewed and otherwise negative. Patient has come out of his room several times stating that his pain is 10/10. Patient has been updated by nursing staff that we are busy with critical patients, and we will be with him as soon as possible. Patient is somewhat understanding. Nurses note and vital signs reviewed and patient is not hypoxic. General: The patient appears well and in mild distress secondary to pain. Patient is resting uncomfortably on cart. Patient is not toxic, lethargic, or listless Skin: Warm, dry, no pallor noted. There is no rash noted. No petechiae, purpura. Head: Normocephalic, atraumatic Eye: Normal conjunctiva, no drainage, EOMI. PERRL Ears, Nose, Mouth, and Throat: oral mucosa is moist. Nares patent. Mouth without vesicles. Cardiovascular: Regular Rate and Rhythm, no murmur, gallop, rub Respiratory: Patient is in no distress, no accessory muscle use, lungs are clear to auscultation, no wheezing, rales or rhonchi Back: Patient has moderate tenderness to palpation to bilateral lower parathoracic spine of T11 and 12. Patient currently has no pain to bilateral lumbar paraspinal or midline. No step-offs. No signs of abscess, redness, cellulitis, or acute signs of infection. He has no tenderness to palpation to bilateral piriformis muscle. Patient is standing up leaning against the sink when I walk into the room trying to find a comfortable position. Patient is upper thoracic and cervical along with sacrum and coccyx are non-tender, no CVA tenderness bilaterally to percussion. No CT LS midline pain besides above a forementioned. GI: no tenderness to palpation, no masses appreciated. No rebound, guarding, or rigidity noted. No distention Musculoskeletal: Patient has full range of motion of all of the extremities, no motor, sensory, or focal neurological deficits Neurological: A&O x4, normal speech Psychiatric: Cooperative Related Data Home Medications ?Medication ?Instructions ?Recorded ?Confirmed B complex 11-folic acid 1 mg-C 100 1 tab PO DAILY 08/29/24 02/07/25 mg-biotin 300 mcg-zinc 50 mg tablet (Dialyvite) anastrozole 1 mg tablet 1 mg PO DAILY 08/29/24 02/07/25 aspirin 81 mg chewable tablet 1 tab PO DAILY 08/29/24 02/07/25 atorvastatin 20 mg tablet 20 mg PO DAILY 08/29/24 02/07/25 calcitriol 0.25 mcg capsule 0.25 mcg PO QWEEK 08/29/24 02/07/25 carvedilol 6.25 mg tablet 6.25 mg PO Q12H 08/29/24 02/07/25 escitalopram oxalate 10 mg tablet 10 mg PO DAILY 08/29/24 02/07/25 furosemide 80 mg tablet 80 mg PO Q12H 08/29/24 02/07/25 insulin glargine 100 unit/mL (3 60 unit subcut QAM 08/29/24 02/07/25 mL) subcutaneous pen (Lantus Solostar U-100 Insulin) insulin lispro 100 unit/mL 10 unit subcut .meal 08/29/24 02/07/25 subcutaneous pen (Humalog KwikPen (U-100) Insulin) levothyroxine 100 mcg tablet 100 mcg PO DAILY 08/29/24 02/07/25 pregabalin 150 mg capsule 150 mg PO TID 08/29/24 01/02/25 sevelamer carbonate 800 mg tablet 800 mg PO TID 08/29/24 02/07/25 tenapanor 30 mg tablet (Xphozah) 30 mg PO DAILY 08/29/24 02/07/25 testosterone 1.62 % (20.25 mg/1.25 1 packet topical DAILY 08/29/24 02/07/25 gram) transdermal gel packet trazodone 50 mg tablet 50 mg PO QPM 08/29/24 02/07/25 methocarbamol 500 mg tablet 500 mg PO Q8H PRN back spasms 01/02/25 02/07/25 midodrine 10 mg tablet 10 mg PO .during dialysis PRN low 01/02/25 02/07/25 bp Previous Rx's ?Medication ?Instructions ?Recorded methocarbamol 500 mg tablet 500 mg PO Q8H PRN muscle pain #10 04/04/25 tabs oxycodone-acetaminophen 5 mg-325 1 tab PO Q4H PRN pain #6 tabs 04/04/25 mg tablet (Percocet) Allergies Allergy/AdvReac Type Severity Reaction Status Date / Time vancomycin AdvReac Severe rash Verified 03/24/25 23:59 adhesive AdvReac Intermediate rash Verified 03/24/25 23:59 latex AdvReac Mild Rash Verified 03/24/25 23:59 sunflower seed AdvReac Mild Congested Verified 03/24/25 23:59 Opioid HPI Opioid Management Most Recent Opioid Data: Last Pain Scale 10 Today, 14:23 Last MAR Pain Assessment Today, 14:23 PFSH PFSH Medical History (Updated 04/04/25 @ 14:23 by Ramirez Frost MD) Diabetes ?E11.9 - Type 2 diabetes mellitus without complications (ICD-10) Hypertension ?I10 - Essential (primary) hypertension (ICD-10) Leukemia ?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.90 - Leukemia, 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 (ICD-10) Surgical History (Updated 08/29/24 @ 04:11 by Ruby James) H/O foot surgery ?Z98.890 - Other specified postprocedural states (ICD-10) H/O right heart catheterization ?Z98.890 - Other specified postprocedural states (ICD-10) Social History Little interest or pleasure in doing things: not at all Feeling down, depressed, or hopeless: not at all Exam Constitutional Vital Signs, click to edit/add: Last Vital Signs Temp 98.7 F 04/04/25 10:12 Pulse 87 04/04/25 14:34 Resp 18 04/04/25 14:34 BP 149/68 H 04/04/25 14:34 Pulse Ox 98 04/04/25 14:34 O2 Del Method Room Air 04/04/25 14:34 Course Vital Signs Vital signs: Vital Signs Temperature 98.7 F 04/04/25 10:12 Pulse Rate 78 04/04/25 10:12 Respiratory Rate 18 04/04/25 10:12 Blood Pressure 150/62 H 04/04/25 10:12 Pulse Oximetry 98 04/04/25 10:12 Oxygen Delivery Method Room Air 04/04/25 10:12 Temperature 98.7 F 04/04/25 10:12 Pulse Rate 87 04/04/25 14:34 Respiratory Rate 18 04/04/25 14:34 Blood Pressure 149/68 H 04/04/25 14:34 Pulse Oximetry 98 04/04/25 14:34 Oxygen Delivery Method Room Air 04/04/25 14:34 Medical Decision Making MDM Narrative Medical decision making narrative: Patient seen and examined: Patient will be given IM Dilaudid and Toradol along with oral Robaxin. Differential diagnosis includes but is not limited to: Acute on chronic lumbar radiculopathy, sciatica, piriformis syndrome, thoracic pain, disc herniation, DJD Radiological studies: Please see the formal radiological report. I did review patient's MRI report of his lumbar spine. We reviewed the body of the report and the impression and discussed the areas of moderate spinal stenosis and foraminal stenosis of L4-L5. Shared decision making: I discussed with the patient the necessary radiological finding from his MRI of his lumbar spine Social barriers to healthcare: There are no food insecurities, there is no issue with transportation, there are no insurance barriers. Disposition: I discussed with the patient continue ice, stretching. Patient was given medication in the ER. Patient was given a short prescription for pain medication and muscle relaxer, he has an appointment with pain management tomorrow. Patient is very frustrated that his PCP will not prescribe pain medication. No questions at discharge from patient or sister. Several blame less apologies were given for his length of stay in the ER today. Patient was somewhat understanding. Discharge Plan Discharge Chief Complaint: Extremity Problem, Nontraumatic Clinical Impression: Chronic pain, Chronic lumbar radiculopathy, Chronic back pain Patient Disposition: Home, Self-Care Time of Disposition Decision: 14:26 Condition: Fair Prescriptions / Home Meds: New oxycodone-acetaminophen [Percocet] 5-325 mg tablet 1 tab PO Q4H PRN (Reason: pain) Qty: 6 0RF methocarbamol 500 mg tablet 500 mg PO Q8H PRN (Reason: muscle pain) Qty: 10 0RF No Action methocarbamol 500 mg tablet 500 mg PO Q8H PRN (Reason: back spasms) midodrine 10 mg tablet 10 mg PO .during dialysis PRN (Reason: low bp) anastrozole 1 mg tablet 1 mg PO DAILY aspirin 81 mg tablet,chewable 1 tab PO DAILY atorvastatin 20 mg tablet 20 mg PO DAILY Dialyvite [id number] np-ju-[id number]-mg tablet 1 tab PO DAILY calcitriol 0.25 mcg capsule 0.25 mcg PO QWEEK carvedilol 6.25 mg tablet 6.25 mg PO Q12H escitalopram oxalate 10 mg tablet 10 mg PO DAILY pregabalin 150 mg capsule 150 mg PO TID furosemide 80 mg tablet 80 mg PO Q12H insulin glargine [Lantus Solostar U-100 Insulin] 100 unit/mL (3 mL) insulin pen 60 unit SUBCUT QAM insulin lispro [Humalog KwikPen Insulin] 100 unit/mL insulin pen 10 unit SUBCUT .meal Patient Comments: unknown ? levothyroxine 100 mcg tablet 100 mcg PO DAILY sevelamer carbonate 800 mg tablet 800 mg PO TID Xphozah 30 mg tablet 30 mg PO DAILY testosterone 1.62 % (20.25 mg/1.25 gram) gel in packet 1 packet topical DAILY trazodone 50 mg tablet 50 mg PO QPM Print Language: Yi Instructions: Pain Management in Older Adults (DC), Pain Management (ED), Chronic Pain (ED), Lumbar Radiculopathy (ED) Additional Instructions: Use ice 20 minutes on, 20 minutes off. Do not use heat. See pain management tomorrow. You may need to follow-up with orthopedic spine surgery or neurosurgery, consult your pain management physician about this tomorrow. Referrals: ANGEL RICKETTS [Primary Care Provider, Family Practice] - 1 week Discharge Date/Time: 04/04/25 14:35
[2025-04-04 14:34] VITALS: BP 149/68; PULSE 87; O2SAT 98
== END 2025-04-04 14:35 | disposition home or self-care (01) ==
PROVIDERS: Emergency Provider Emergency Medicine; PCP Family Medicine
DX: M54.16 Radiculopathy, lumbar region (principal); M54.9 Dorsalgia, unspecified; G89.29 Other chronic pain
CPT/HCPCS: 96372; 99284; J1171; J1885

== ENCOUNTER 2025-04-06 19:18 | Emergency (ER) | payer MEDICARE, SELFPAY ==
--- OUTSIDE RECORDS SUMMARY | 2025-04-06 19:37 | XMS_ITS | CCD ---
Author Organization [facility] Care Team Providers Care Evaporator Operator Molasses Name Role Phone Ada Uriostegui Unavailable BERTIN RUSSELL Admitting Unavailable YVONNEBERTIN MYERS Attending Unavailable PETZNICK, IDANIA Primary Care Unavailable PETZNICK, IDANIA Referring Unavailable Petkorina, DO Idania Primary Care Provider [phone] MD Ada Uriostegui Attending Provider Marilin, Idania Primary Care Provider [phone] MD Ada Uriostegui Attending Provider Sj Francois Primary Care Physician Sj Garcia Unavailable Unavailable Sj Francois Primary Care Physician Samantha Ricketts, DO Idania Primary Care Provider [phone] MD Ada Uriostegui Attending Provider DO Yosef Castillo Emergency Provider Sj Francois Primary Care Physician Samantha Ricketts, DO Idania Primary Care Provider [phone] MD Ada Uriostegui Attending Provider [phone] MD Evans Narayanan Jr Emergency Provider Sj Francois Primary Care Physician Sj Garcia Primary Care Physician Samantha Ricketts, DO Idania Primary Care Provider MD Ada Uriostegui Attending Provider AlessandroSj Britton Attending Samantha Ricketts Idania Primary Care Unavailable Petznick, Idania Consulting Unavailable Alessandro Sj MENJIVAR Attending Sj Garcia Primary Care Physician Samantha Ricketts, DO Idania Primary Care Provider HARSH Hill Emergency Provider Petznick, DO Idania Primary Care Provider MD Ada Uriostegui Attending Provider MD Delano Mondragon Emergency Provider Frings, DO Chintan Admit Provider Frings, DO Chintan Attending Provider MD Jf Liu Other Provider MD Ada Uriostegui Other Provider MD Zenon Cage Other Provider MD Conor Mcnamara Other Provider MD Yocasta Villalba Other Provider Pettanoick, DO Idania Primary Care Provider MD Evans Narayanan Jr Emergency Provider HARSH Hill Emergency Provider [phone] MD Ada Uriostegui Attending Provider [phone] MD Delano Mondragon Emergency Provider Frings, DO Chintan Admit Provider Frings, DO Chintan Attending Provider MD Jf Liu Other Provider MD Ada Uriostegui Other Provider MD Zenon Cage Other Provider MD Conor Mcnamara Other Provider MD Yocasta Villalba Other Provider DR IDANIA RICKETTS Primary Care Unavailable KEVIN WILKES Admitting Unavailable KEVIN WILKSE Attending Unavailable KEVIN WILKES Admitting Unavailable DR IDANIA RICKETTS Primary Care Unavailable KEVIN WILKES Attending Unavailable HIGHLANDER, KEVIN Lewis Admitting Unavailable [...] Samantha Francois, Sj P Primary Care Physician Marco Bhandaridra Unavailable Pettanoick, DO Emerson Primary Care Provider HARSH Kennedy Attending Provider DO Chintan Brewster Attending Provider [phone] Alessandro, Sj P Primary Care Physician Samantha Francois, Sj P Primary Care Physician Samantha tate Alessandro, Sj P Primary Care Physician Liliamvanathaniel Francios, Sj P Primary Care Physician Liliamvanathaniel tate Pettanoick, DO Emerson Primary Care Provider [phone] HARSH Kennedy Attending Provider DO Chintan Brewster Attending Provider Ray, DO Clara Mcfarlane Emergency Provider [facility], Sj P Primary Care Physician Rasheeda Kirkland Unavailable Petznick, DO Idania Primary Care Provider MD Ramirez Jean Attending Provider Pettanoick, DO Idania Primary Care Provider MD Chintan Sweet Emergency Provider [phone] MD Augusta Hill Attending Provider [phone] Ramirez Jean Unavailable Petkorina DO, Idania M Unavailable [phone] Petznick DO, Idania M Unavailable [phone] Petznick DO, Idania M Primary Care Provider [phone] DO Flakito High Attending Provider [phone] Sj Francois Primary Care Physician Samantha Ricketts, Idania Primary Care Provider MD Ramirez Jean Attending Provider MD Chintan Sweet Emergency Provider MD Augusta Hill Attending Provider DO Flakito High Attending Provider DO Flakito High Referring Provider DO Chong Dixon Emergency Provider DO Buddy Murguia Admit Provider DO Buddy Murguia Attending Provider [phone] MD Yocasta Villalba Other Provider MD Chintan Hernández Other Provider TIARA Vu Other Provider DO Amy Escudero Attending Provider [phone] DO Clara Bell Emergency Provider Marilin, Idania Primary Care Provider MD Ramirez Jean Attending Provider TIARA Mondragon Attending Provider Marilin, Idania Primary Care Provider Marilin, Idania Primary Care Provider DO Flakito High Attending Provider Marilin, Idania Primary Care Provider Keister, DO Chong A Emergency Provider Petznick DO, Idania M Unavailable PETTANOICK, IDANIA M Primary Care Unavailable PETZNICK, IDANIA [...] Other Provider Gi Mondragon DPM Other Provider Petznaston DO, Idania Primary Care Provider Will Cerna PA-C Emergency Provider Lindbloom DO, Maxime Admit Provider [phone] Lindbloom DO, Maxime Attending Provider [phone] Chintan Hernández MD Other Provider Jf Liu MD Other Provider Wayne MICHEL-C, Marielos Other Provider Unavailable Ada Uriostegui MD Other Provider Orly PALOMARES, Yocasta Other Provider Gi Mondragon DPM Other Provider [phone] Venkat Burgos DO Emergency Provider [phone] PETTANOICK, IDANIA M Attending Unavailable PETZNICK, IDANIA M [...] Attending Unavailable Declan Silverio APRN Emergency Provider Ivana Salcedo DO Emergency Provider Unavailable Primary Care Provider Unavailabl e IDANIA RICKETTS Primary Care Physician [phone] PEDRO ALVAREZ Admitting Unavailable MOUKACRISTOFER PEDRO Attending Unavailable PERNE, JOY Attending Unavailable HEAVENLY BUENO Attending Unavailable YVONNE, BERTIN Referring Unavailable ERICK CARTER Attending Unavailable MORELFAUSTINO Attending Unavailable MOUKARBEL, PEDRO Attending Unavailable MORELFAUSTINO Attending Unavailable MORELFAUSTINO STEWART Attending Unavailable PERJOY LEYVA Attending Unavailable ERICK CARTER Attending Unavailable JENIFER, REFUGIO Attending Unavailable COOLEY, CHONG Referring Unavailable VIJENDRA, SIVAN Referring Unavailable COOLEY, CHONG Referring Unavailable JENIFER, REFUGIO Referring Unavailable JENIFER, REFUGIO Referring Unavailable JENIFER, REFUGIO Referring Unavailable COOLEY, CHONG Attending Unavailable PERNE, JOY Referring Unavailable COOLEY, CHONG Attending Unavailable ADAMS TATE Attending Unavailable BRADLEY HALL Attending Unavailable VIJENDRA, SIVAN Attending Unavailable YVONNE, BERTIN Referring Unavailable YVONNE, BERTIN Referring Unavailable HENLEY, ANYA Admitting Unavailable HENLEY, ANYA Attending Unavailable HENLEY, ANYA Referring Unavailable MOKARI PEDRO Referring Unavailable ERICK CARTER Admitting Unavailable ERICK CARTER Attending Unavailable TANVIR SMITH Attending Unavailable SHERLEY TEMPLETON Attending Unavailable Delano Benavides Attending Unavailable Petznick DO, Idania Primary Care Provider [phone] Loretta DO, Venkat Maeve Emergency Provider Unavailable Petznick DO, Idania Primary Care Provider Petznick DO, Idania Referring Provider [phone] Jey Ramos MD Attending Provider Nuria Fermin LPN Attending Provider Unavailable Kiepert PARA OPERATOR, Savanah A Emergency Provider Nusrat PARA OPERATOR, Declan Emergency Provider [phone] Will Cerna PA-C Emergency Provider [phone] Ivana Salcedo Attending Unavailable Ivana Salcedo Admitting Unavailable Petznick, Idania Primary Care Unavailable Kiepert, Savanah A Admitting Unavailable Kiepert, Savanah A Attending Unavailable Petznick, Idania Primary Care Unavailable Petznick, Idania Primary Care Unavailable Will Cerna Admitting Unavailable Will Cerna Attending Unavailable Petznick, Idania Primary Care Unavailable KeChong acosta Admitting Unavailable KeChong acosta Attending Unavailable Petznick, Idania Primary Care Unavailable Delano Mondragon Admitting Unavailable Delano Mondragon Attending Unavailable Maxime Magana Admitting UnavailMaxime Worthy Attending Unavailabl e Chintan Hernández Consulting Unavailable Petznick, Idania Primary Care Unavailable Jf Liu Consulting Unavailable Marielos Black Consulting Unavailable MoodyAda Consulting Unavailable Yocasta Villalba Consulting Unavailable Gi Mondragon Consulting Unavailable Loretta, Venkat M Admitting Unavailable Loretta, Venkat M Attending Unavailable Petznick, Idania Primary Care Unavailable Nusrat, Declan Admitting Unavailable Nusrat, Declan Attending Unavailable Petznick, Idania Primary Care Unavailable PETZNICK, IDANIA M Primary Care Unavailable MEREDITH KERR Attending Unavailable PETZNICK, IDANIA M Primary Care Unavailable PETZNICK, IDANIA M Primary Care Unavailable BASIL DE LOS SANTOS Attending Unavailable PETZNICK, IDANIA M Primary Care Unavailable PETZNICK, IDANIA M Primary Care Unavailable ALTMAN, NANCY Referring Unavailable PETZNICK, IDANIA M Primary Care Unavailable ALTMAN, NANCY Referring Unavailable PETZNICK, IDANIA M Primary Care Unavailable IADNIA RICKETTS Primary Care Unavailable CLARA VIEYRA Attending Unavailable Idania Ricketts DO Primary Care Provider Allergies Allergy Classification Reported Allergen(s) Allergy Type Date of Onset Reaction(s) Facility Glycopeptides (antibiotic) (1 source) Vancomycin Drug Allergy 4 [facility] Haloperidol (1 source) Haloperidol Drug Allergy 4 [facility] Latex (1 source) Latex Substance Allergy 4 [facility] (20 sources) Latex; Translations: [latex] Allergy to substance (disorder) 2 [facility] Repository Comment on above: pt states allergy is only if exposed to latex for extended periods. (20 sources) Haloperidol; Translations: [HALOPERIDOL] Drug Allergy 3 [facility] Comment on above: anxious, restless, a gitated (2 sources) Adhesive agent; Translations: [ADHESIVE] Drug allergy (disorder) 2 [facility] (20 sources) Vancomycin; Translations: [vancomycin] Drug Allergy 3 [facility] (20 sources) [employer] Oil; Translations: [SUNFLOWER OIL] Propensity to adverse reactions 8 GI intolerance [facility] (20 sources) Wound Dressing Adhesive Drug Allergy 2 [facility] (1 source) ADHESIVE TAPE-SILICONES; Translations: [ADHESIVE TAPE-SILICONES] Propensity to adverse reactions to drug (disorder) 2 [facility] Repository (1 source) Vancomycin Drug Allergy 5 [facility] Repository (2 sources) sunflower seed extract; Translations: [SUNFLOWER SEED] Drug Allergy 8 Abdominal Pain [facility] Repository Medications Current Medications Medication Drug Class(es) Dates Sig (Normalized) Sig (Original) acetaminophen 325 mg / HYDROcodone bitartrate 5 mg oral tablet (14 sources) Opioid Agonist Start: 03-26-2025 take 1 tablet by mouth every four to six hours as needed for pain Start: 11-28-2024 End: 02-13-2025 take 1 tablet by mouth every four to six hours as needed for pain Hydrocodone-Acetaminophen 5-325 mg table t Discontinued 1 TAB PO EVERY 4-6 HOURS as needed for pain 10 November 28, 2024 February 13, 2025 8:41am Start: 09-19-2024 End: 09-24-2024 take 1 tablet by mouth every six hours for pain HYDROcodone-acetaminophen ([place]) 5-325 MG tablet Indications: Lymphedema Take 1 tablet by mouth every 6 (six) hours if needed for severe pain for up to 5 days 20 tablet 09/19/2024 09/24/2024 Active Start: 08-29-2024 End: 09-04-2024 take 1 tablet by mouth every six hours as needed for pain HYDROcodone-acetaminophen ([place]) 5-325 MG tablet TAKE 1 TABLET BY MOUTH EVERY 6 HOURS FOR 5 DAYS NEEDED FOR PAIN 08/29/2024 09/04/2024 Discontinued (Therapy completed) Start: 05-11-2024 End: 05-16-2024 take 1 tablet by mouth every six hours for pain HYDROcodone-acetaminophen ([place]) 5-325 MG tablet Indications: Neuropathy Take 1 tablet by mouth every 6 (six) hours if needed for severe pain for up to 5 days 20 tablet 05/11/2024 05/16/2024 Active acetaminophen 325 mg / oxyCODONE hydrochloride 5 mg oral tablet (7 sources) Opioid Agonist Start: 02-02-2025 End: 02-05-2025 acetaminophen-oxycodone 325 mg-5 mg Tab 1 tab(s), Oral, q6hr for pain for 3 day(s), 12 tab(s), Refill(s) 0, [id number], 187, cm, 02/02/25 18:12:00 EDT, Height/Length Dosing, [...] Drug Start: 06-22-2024 End: 06-22-2025 aspirin 81 mg chewable tablet Chew 1 tablet (81 mg total) and swallow in the morning. 06/22/2024 06/22/2025 Active Start: [...] 29, 2024 1:00am Complies with drug therapy bumetanide (BUME X) 1 mg tablet Take 2 tablets (2 mg total) by mouth. Active calcitriol 0.52986 mg oral capsule (20 sources) Vitamin D3 [...] (REFER TO PRESCRIPTION NOTES). 02/10/2023 08/07/2024 Discontinued calcium acetate, phosphat bind, (PHOSLO) 667 mg tablet Take 1 tablet (667 mg total) by mouth. Active take 2 tablets by mo uth every eight hours Calcium Acetate 667 MG [...] Continuous Blood Gluc Receiv er (Dexcom G7 Model Maker Apprentice) device (20 sources) Start: 12-21-2022 Continuous Blo od Gluc Model Maker Apprentice (Dexcom G7 Model Maker Apprentice) device 1 (one) time each day at the same time. 12/21/2022 Active Start: 12-21-2022 Continuous Blo od Gluc Model Maker Apprentice (Dexcom G7 Model Maker Apprentice) device 1 (one) time each day at [...] mouth once daily ergocalciferol (ERGOCALCIFEROL) 1.25 MG (15972 UT) capsule Take 1 capsule by mouth [...] 29, 2022 1:56am insulin glargine (LANTUS) 100 unit/mL injection Inject 0.6 mL (60 Units total) under the skin. Active insulin glargine (LANTUS) 100 UNIT/ML injection [...] SUBCUT .with meals October 29, 2024 12:00am 3 ml insulin lispro 50 unt/m l / insulin lispro protamine, human 50 unt/ml pen injector (2 sources) Insulin Analog insulin lispro p rotamin-lispro (HumaLOG Mix 50-50 KwikPen) 100 unit/mL (50-50) insulin pen Inject under the skin in the morning and in the evening. Inject before meals. 100u am 90u at dinnertime. Active insulin lispro p rotamine & lispro (HUMALOG [...] polyneuropathy associated with type 2 diabetes mellitus ([facility]) Inject 110 units for breakfast subcutaneous and [...] 2018 1:00am April 29, 2020 11:10am take 3 capsules by m outh in the morning levothyroxine sodium (TIROSINT) 25 mcg capsule Take 3 capsules (75 mcg total) by mouth in the morning. Active take 1 capsule by mo uth once daily levothyroxine 100 mcg capsule take 1 capsule (100 mcg) by oral route once daily take 1 tablet by nida th once daily in the morning methocarbamol 500 mg oral tablet (1 source) Muscle Relaxant take 1 tablet by mouth three times daily as needed for muscle spasms methocarbamol (ROBAXIN) 500 MG tablet Take 1 tablet by mouth 3 times daily as needed (back spasms) Active midodrine hydrochloride 10 mg oral tablet (14 sources) alpha-Adrenergic Agonist Start: midodrine (Proamatine) 10 MG tablet TAKE 1 TABLET BY MOUTH NEEDED DURING DIALYSIS FOR BLOOD PRESSURE SUPPORT 09/13/2024 Active midodrine (PROAM ATINE) 2.5 mg tablet Take 4 tablets (10 mg total) by mouth. Active Mounjaro (2 sources) Mounjaro Active NON FORMULARY (1 source) take 1 mg by mouth in the morning NON FORMULARY Take 1 mg by mouth in the morning. Med Name: anaotrozole . Active ondansetron 4 mg disintegrating oral tablet [...] 01, 2022 1:00am November 04, 2022 5:59pm sevelamer carbonate 800 mg oral tablet (20 sources) Phosphate Binder Start: 07-26-2024 take 2 tablets by mouth three times daily at mealtime sevelamer (RENVELA) 800 mg tablet TAKE 2 TABLETS BY MOUTH THREE TIMES DAILY WITH MEALS 07/26/2024 Active Tenapanor HCl, CKD, (XPHOZAH) 30 MG [...] directed Transdermal Once a day Active Tirzepatide (Mounjaro) 10 MG/0.5ML solution auto-injector (20 [...] 4:04pm OK to take 2 pills on Dialysis days Complies with drug therapy Start: 02-13-2025 [...] 10, 2022 5:28am Vitamin A 3 MG (92895 UT) (4 sources) take 1 capsule by mouth once jocelyn ly take 1 capsule by mouth once jocelyn ly Vitamin A 3 MG (44624 UT) 1 capsule Orally Once a day [...] Drug Class(es) Dates Sig (Normalized) Sig (Original) [id number] 200 actuat albuterol 0.09 mg/actuat metered dose [...] completed) Start: 05-16-2024 take 1 tablet by ndia th once daily escitalopram (Lexapro) 10 MG [...] 8:41pm Start: 03-02-2023 take [address] [facility] in the morning furosemide (Lasix) 40 MG [...] 16, 2023 12:07pm [facility] hours Furosemide 80 MG 1 tablet Orally twice a day for 30 days Active take 2 tablets by mo [facility] every twenty-four hours Lasix 40 MG [...] completed) Start: 05-17-2024 take 1 capsule by mo [facility] three times weekly gabapentin (Neurontin) 300 MG capsule Indications: Type 2 diabetes mellitus with peripheral neuropathy (CMS/HCC) Take 1 capsule (300 mg) by mouth 3 (three) times a week After dialysis 30 capsule 3 05/17/2024 Active Start: 05-17-2024 take 1 capsule by mo ut three times weekly gabapentin (Neurontin) 300 MG [...] 17, 2019 12:00am June 17, 2019 2:31pm take 2 capsules by m [facility] four times daily gabapentin (NEURONTIN) 100 mg capsule Take 200 mg by mouth 4 (four) times a day. Active gentamicin 0.001 mg/mg topic al ointment (10 [...] 2022 5:29pm ibuprofen 600 mg oral tablet (11 sources) Nonsteroidal Anti-inflammatory Drug Start: 08-29-2024 End: [...] 20, 2019 12:00am July 22, 2019 7:56pm lidocaine 0.05 mg/mg medicated patch (4 sources) Antiarrhythmic, Amide Local Anesthetic Start: 02-13-2025 End: 03-26-2025 apply 1 dose topically once daily as needed for pain Lidocaine 5 % adhesive patch,medicated Discontinued 1 PATCH TOPICAL Daily as needed for pain February 13, 2025 12:00am March 26, 2025 8:41am leave on most painful area for up to 12 hrs linezolid 600 mg oral tablet (18 sources) Oxazolidinone Antibacterial Start: 11-23-2023 End: 10-29-2024 [...] 05, 2018 1:00am November 06, 2018 6:49pm LORazepam 1 mg oral tablet (20 sources) Benzodiazepine Start: 05-15-2024 End: 03-26-2025 take 1 tablet by mouth every eight hours as needed for anxiety Lorazepam (Ativan) 1 mg tablet Discontinued 1 MG PO Every 8 hours as needed for anxiety 03 08May 15, 2024 12:00am March 26, 2025 8:41am 24 hr NIFEdipine 90 mg extended release [...] 26, 2023 1:00am October 06, 2023 10:04am pregabalin 150 mg oral capsule (20 sources) Start: 02-02-2025 End: 02-07-2025 take 1 capsule by mouth once daily pregabalin (LYRICA) 75 MG capsule Indications: Idiopathic peripheral neuropathy Take 1 capsule by mouth daily for 5 doses. Max Daily Amount: 75 mg 5 capsule 02/02/2025 02/07/2025 Active Start: 10-18-2023 End: 03-26-2025 take 1 capsule by mouth three times daily Pregabalin (Lyrica) 150 mg capsule Discontinued 150 MG PO Three times daily 6 2 March 11, 2025 12:00am March 26, 2025 8:42am Start: 03-02-2023 End: 05-31-2025 take 1 capsule [...] 9:10am Start: 10-10-2022 take [address] [facility] once daily Pregabalin (Lyrica) 50 mg capsule Active 50 MG PO Daily October 10, 2022 12:00am Semaglutide, 2 MG/DOSE, (Ozempic, 2 MG/DOSE,) 8 [...] 18, 2023 8:50am [place] [address] mg powder for oral suspension (20 sources) [...] 15, 2018 1:00am July 15, 2018 12:27pm SZNERVE1 cream (4 sources) Start: 02-13-2025 End: 03-26-2025 apply 1-2 g topically three to four times daily SZNERVE1 cream Discontinued 1 - 2 GM TOPICAL 3 to 4 times per day 120 February 13, 2025 12:00am March 26, 2025 8:42am Buderer Compounded Item: Amitriptyline HCl 2%, Capsaicin 0.025%, Clonidine HCl 0.23%, Gabapentin 6%, Lidocaine HCl 5% Cream Start: 02-13-2025 apply 1-2 g topicall y [...] 0.23%, Gabapentin 6%, Lidocaine HCl 5% Cream Tirzepatide (20 sources) Start: 10-06-2023 End: 03-26-2025 Tirzepatide (Mounjaro) 5 mg/ 0.5 mL pen injector Discontinued 5 MG SUBCUT every week October 06, 2023 1:00am March 26, 2025 8:42am Start: 10-06-2023 Tirzepatide (M ounjaro) 5 mg/0.5 [...] week October 06, 2023 12:00am Tirzepatide (Mounjaro) 7.5 MG/0.5ML solution pen-injector (20 [...] diabetes mellitus with ESRD (end-stage renal disease) ([facility]) Inject 7.5 mg under the skin 1 [...] 2022 12:00am take 1 capsule by mo n[facility] once daily vitamin B complex capsule take 1 capsule by oral route daily Vitamin B Comple x - as directed Orally TWICE A DAY Active Vitamin B Complex Tablet (9 sources) Start: 07-29-2022 End: 09-16-2023 take 1 [...] (20 sources) Hallux rigidus, right foot Onset: 3 Chronic Acute and unspecified renal failure (20 sources) Acute renal failure syndrome; Translations: [Acute kidney failure, unspecified] Onset: 4 Resolved: 4 06-18-2019 Episodic Anxiety disorders (20 sources) Anxiety; Translations: [...] 06-19-2019 Chronic Diseases of white blood cells (18 sources) Leukocytosis; Translations: [Elevated white blood cell [...] 11-22-2023 Episodic Other aftercare (1 source) Other exterminator helper termite (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 therapy Episodic Other aftercare (14 sources) Drug therapy finding; Translations: [Other mcfp (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 therapy] 12-16-2023 Episodic Other circulatory disease (15 sources) Arteriovenous fistula; 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 fistula, acquired] 12-06-2023 Chronic Other circulatory disease (5 sources) Arteriovenous fistula, acquired; 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 fistula, acquired] 12-06-2023 Chronic Other connective tissue disease (1 source) Neuralgia; Translations: [Neuralgia and neuritis, unspecified] Onset: 5 Episodic Other connective tissue disease (2 sources) Neuralgia and neuritis, unspecified; Translations: [Neuralgia and neuritis, unspecified] Onset: 5 Episodic Other connective tissue disease (1 source) Other specified soft tissue disorders; Translations: [Other specified soft tissue disorders] Onset: 5 Episodic Other diseases of kidney [...] (chronic) (peripheral)] 09-05-2024 Episodic Other endocrine disorders (12 sources) Hypoglycemia; Translations: [Hypoglycemia, unspecified] 03-26-2025 Chronic Other endocrine disorders (2 sources) Hypoglycemia, unspecified; Translations: [Hypoglycemia] Chronic Other endocrine disorders (20 sources) Male hypogonadism; Translations: [Testicular hypofunction] Onset: 2 10-13-2023 Chronic Other endocrine disorders (18 sources) Hyperparathyroidism; Translations: [Hyperparathyroidism, unspecified] 11-21-2023 Chronic Other endocrine disorders (2 sources) Hyperparathyroidism, unspecified; Translations: [Hyperparathyroidism, unspecified] 11-23-2023 Chronic Other endocrine disorders (2 sources) Testicular hypofunction; 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 Other gastrointestinal disorders (20 sources) Diarrhea; Translations: [Diarrhea, unspecified] Onset: 4 Resolved: 4 11-01-2022 Episodic Other injuries and conditions due to external causes (18 sources) Systemic inflammatory response syndrome; Translations: [Systemic [...] Onset: 2 Chronic Other nervous system disorders (19 sources) Neuropathy; Translations: [Polyneuropathy, unspecified] 06-08-2024 Chronic [...] Onset: 5 Chronic Other nervous system disorders (10 sources) Chronic pain; Translations: [Other chronic pain] 02-13-2025 Chronic Other nervous system disorders (1 source) Peripheral nerve disease ; Translations: [Polyneuropathy, unspecified] 03-26-2025 Chronic Other non-traumatic joint disorders (1 source) [...] Chronic Other nutritional; endocrine; and metabolic disorders (18 sources) Hypomagnesemia; Translations: [Hypomagnesemia] 11-20-2023 Chronic Other [...] tissue Onset: 3 Episodic Other skin disorders (7 sources) 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 of right lower leg; [...] Spondylosis; intervertebral disc disorders; other back problems (17 sources) Intervertebral disc disorders with radiculopathy, lumbar region; Translations: [Lumbar radiculopathy] Onset: 5 Episodic Thyroid disorders (20 sources) Hypothyroidism, unspecified; Translations: [Acquired hypothyroidism] Onset: 2 03-02-2023 Chronic Unclassified (1 source) CONTACT W/AND (SUSP) EXPOS COVID-19; Translations: [CONTACT W/AND (SUSP) EXPOS COVID-19] Onset: 2 Unclassified (2 sources) Low back pain, unspecified; Translations: [Low back pain, unspecified] Onset: 5 Unclassified (2 sources) Post-op; Translations: [Post-op] Onset: 4 Unclassified (1 source) Med Refill Onset: 5 Unclassified (1 source) Wound check Onset: 5 Viral infection (20 sources) Disease caused by 2019-nCoV; Translations: [COVID-19] Onset: 2 Resolved: 4 09-11-2021 Episodic Past or Other Problems Problem Classification Problem Date Documented Da te Episodic/Chronic Acquired foot deformities (1 source) Flat foot [pes planus] (acquired), left foot; Translations: [FLAT FOOT PES PLANUS ACQ LT FOOT] Onset: 03-05-2022 Episodic Administrative/social admission (18 sources) Dietary counseling and surveillance; Translations: [Patient encounter status] Onset: 11-27-2024 Episodic Allergic reactions (20 sources) Atopic dermatitis; [...] sources) Long-term current use of 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; 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] Onset: 03-02-2023 03-02-2023 Episodic Other aftercare (3 sources) 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; Translations: [Insulin [...] 10-02-2023 10-02-2023 Episodic Other connective tissue disease (20 sources) Pain in right foot; Translations: [Pain in right foot] Onset: 08-12-2022 Episodic Other connective tissue disease (1 source) Short Achilles tendon (acquired), right ankle; Translations: [SHORT ACHILLES TENDON ACQ RT ANKLE] Onset: 03-05-2022 Episodic Other connective tissue disease (2 sources) Pain in left foot; Translations: [Pain in left foot] Onset: 12-05-2024 Episodic Other connective tissue disease (1 source) Pain in right lower leg; Translations: [Pain in right lower leg] Onset: 08-28-2024 Episodic Other connective tissue disease (1 source) Foot pain Onset: 10-25-2024 Episodic Other diseases of veins and lymphatics [...] and midfoot with fat layer exposed (CMS/HCC) 10-03-2024 Unclassified (1 source) Low back pain, unspecified; Translations: [Low back pain, unspecified] Onset: 12-27-2024 Urinary tract infections (2 sources) Nonspecific urethritis; Translations: [Nonspecific urethritis] Onset: 10-17-2024 Episodic Results Test Name Value Interpretation Reference Range Facility Alanine aminotransferase [En zymatic activity/volume] in Serum or PlasmaOrdered By: Will Cerna on 03-26-2025 ALT [Catalytic activity/Vol] 16 U/L Normal 7-52 [facility] Comment on above: Performed By: #### C RP, BMP, CBC, ESR #### [address] Albumin [Mass/volume] in Ser um or Plasma by Bromocresol green (BCG) dye binding methoOrdered By: Will Cerna on 03-26-2025 Albumin BCG dye [Mass/Vol] 4.3 g/dL 3.5-5.7 [facility] Alkaline phosphatase [Enzyma tic activity/volume] in Serum or PlasmaOrdered By: Will Cerna on 03-26-2025 ALP [Catalytic activity/Vol] 107 U/L High 34-104 [facility] Comment on above: Performed By: #### C RP, BMP, CBC, ESR #### [facility] [address] Aspartate aminotransferase [ Enzymatic activity/volume] in Serum or PlasmaOrdered By: Will Cerna on 03-26-2025 AST [Catalytic activity/Vol] 11 U/L Low 13-39 [facility] Comment on above: Performed By: #### C RP, BMP, CBC, ESR #### [address] Basic Metabolic Panelon 03-07 Creatinine Clr Calc Pharmacy 14.00 Normal [facility] Comment on above: Result Comment: PERF ORMED BY: [place] [address] PATHOLOGIST STEEL FABRICATOR KWADWO SMITH M.D. Performed By: #### C RP, BMP, CBC, ESR #### [address] GFR/1.73 sq M.predicted MDRD (S/P/Bld) [Vol rate/Area] 6.133 mL/min/{1.73_m2} Normal [facility] Comment on above: Performed By: #### C RP, BMP, CBC, ESR #### [place] [address] [place] Basophils [#/volume] in Bloo d by Automated countOrdered By: Will Cerna on 03-26-2025 Basophils (Bld) [#/Vol] 0.1 10*3/uL Normal 0.0-0.2 [facility] Comment on above: Result Comment: PERF ORMED BY: [place] [address] PATHOLOGIST STEEL FABRICATOR KWADWO SMITH M.D. Performed By: #### C RP, BMP, CBC, ESR #### [address] Basophils/100 leukocytes in Blood by Automated countOrdered By: Will Cerna on 03-26-2025 Basophils/100 WBC (Bld) 0.9 % Normal . [facility] Comment on above: Performed By: #### C RP, BMP, CBC, ESR #### [address] Bilirubin.direct [Mass/volum e] in Serum or PlasmaOrdered By: Will Cerna on 03-26-2025 Bilirubin.direct [Mass/Vol] 0.10 mg/dL 0.03-0.18 [facility] Bilirubin.total [Mass/volume ] in Serum or PlasmaOrdered By: Will Cerna on 03-26-2025 Bilirubin [Mass/Vol] 0.4 mg/dL Normal 0.3-1.0 [facility] Comment on above: Performed By: #### C RP, BMP, CBC, ESR #### [address] Calcium [Mass/volume] in Ser um or PlasmaOrdered By: Will Cerna on 03-26-2025 Calcium [Mass/Vol] 9.9 mg/dL Normal 8.6-10.3 [facility] Comment on above: Performed By: #### C RP, BMP, CBC, ESR #### [address] Capillary blood glucose shante urement by glucometer (mass/volume)Ordered By: Will Cerna on 03-26-2025 Glucose [Mass/Vol] 115 mg/dL Normal [facility] Comment on above: Random Glucose Refer ence Range is dependent on time and content of last meal. Glucose of more than 200 mg/dL in a nonstressed, ambulatory subject supports the diagnosis of Diabetes Mellitus. Result Comment: [place] om Glucose Reference Range is dependent on time and content of last meal. Glucose of more than 200 mg/dL in a nonstressed, ambulatory subject supports the diagnosis of Diabetes Mellitus. PERFORMED BY: [place] [address] PATHOLOGIST STEEL FABRICATOR KWADWO SMITH M.D. Performed By: #### C RP, BMP, CBC, ESR #### [address] Carbon dioxide, total [Moles /volume] in Serum or PlasmaOrdered By: Will Cerna on 03-26-2025 CO2 [Moles/Vol] 24.9 mmol/L Normal 21.0-31.0 [facility] Comment on above: Performed By: #### C RP, BMP, CBC, ESR #### [address] Chloride [Moles/volume] in S james or PlasmaOrdered By: Will Cerna on 03-26-2025 Chloride [Moles/Vol] 102 mmol/L Normal 98-107 [facility] Comment on above: Performed By: #### C RP, BMP, CBC, ESR #### [address] Complete Blood Count Auto Di ffon 03-26-2025 Mean Corpuscular HGB Conc 34.0 g/dL Normal 32.5-35.6 [facility] Comment on above: Performed By: #### C RP, BMP, CBC, ESR #### [address] Monocytes/100 WBC (Bld) 16.12 % Normal 0.00-20.00 [facility] Comment on above: Performed By: #### C RP, BMP, CBC, ESR #### [address] NRBC% 0.0 /100{WBC} Normal 0-0.5 [facility] Comment on above: Performed By: #### C RP, BMP, CBC, ESR #### [address] White Blood Count 10.7 [CFU]/mL High 4.1-10.5 [facility] Comment on above: Performed By: #### C RP, BMP, CBC, ESR #### [facility] [address] [place] [address] [place] Creatinine [Mass/volume] in Serum or PlasmaOrdered By: Will Cerna on 03-26-2025 Creatinine [Mass/Vol] 9.33 mg/dL High 0.70-1.30 [facility] Comment on above: Performed By: #### C RP, BMP, CBC, ESR #### [facility] [address] ECG 12 lead ECGon 03-26-2025 ECG 12 lead ECG [facility] [place] [address] [place] [address] Electrocardiograph Report Signed Patient: Evans Forte MR#: [id number] : 1970 Acct:[id number] Age/Sex: 55 / M ADM Date: 03/26/25 Loc: ER Room: Type: [facility] ER Attending Dr: Ordering Provider: Will Cerna PA-C Date of Service: 03/26/25 ECG/ECG 12 lead ECG: Extremity Injury, Lower Copies to: Test Reason : Blood Pressure : 225/99 mmHG Vent. Rate : 72 BPM Atrial Rate : 72 BPM P-R Int : 160 ms QRS Dur : 98 ms QT Int : 392 ms P-R-T Axes : 67 18 68 degrees QTcB Int : 429 ms Normal sinus rhythm Confirmed by Chong DIXON DO ([id number]) on 03/26/2025 7:13:58 PM Referred By: Electronically Signed By: Chong DIXON DO Transcribed By: MUS Signed By Chong Dixon DO 0 03/26/251913 Normal [facility] Eosinophils [#/volume] in Bl ood by Automated countOrdered By: Will Cerna on 03-26-2025 Eosinophils (Bld) [#/Vol] 0.4 10*3/uL Normal 0.0-0.45 [facility] Comment on above: Performed By: #### C RP, BMP, CBC, ESR #### [facility] [address] [place] [address] [place] Eosinophils/100 leukocytes i n Blood by Automated countOrdered By: Will Cerna on 03-26-2025 Eosinophils/100 WBC (Bld) 3.5 % Normal . [facility] Comment on above: Performed By: #### C RP, BMP, CBC, ESR #### [facility] [address] Erythrocyte distribution wid th [Ratio] by Automated countOrdered By: Will Cerna on 03-26-2025 Erythrocyte distribution width (RBC) [Ratio] 14.6 % Normal 12.0-14.8 [facility] Comment on above: Performed By: #### C RP, BMP, CBC, ESR #### [facility] [address] Erythrocytes [#/volume] in B lood by Automated countOrdered By: Will Cerna on 03-26-2025 RBC (Bld) [#/Vol] 3.66 10*6/uL Low 3.90-5.60 [facility] Comment on above: Performed By: #### C RP, BMP, CBC, ESR #### [address] Glucose Poct Glucometerson 0 03-26-2025 Commemt1 Normal [facility] Comment on above: Result Comment: Glu2 : WILL NOTIFY DR/RN PERFORMED BY: [place] [address] PATHOLOGIST STEEL FABRICATOR KWADWO SMITH M.D. Performed By: #### C RP, BMP, CBC, ESR #### [address] Glucose [Mass/Vol] 53 mg/dL Off scale low [facility] Comment on above: Result Comment: [place] Glucose Reference Range is dependent on time and content of last meal. Glucose of more than 200 mg/dL in a nonstressed, ambulatory subject supports the diagnosis of Diabetes Mellitus. Performed By: #### C RP, BMP, CBC, ESR #### [address] Commemt1 Normal [facility] Comment on above: Result Comment: Glu2 : WILL NOTIFY DR/RN PERFORMED BY: [place] [address] PATHOLOGIST STEEL FABRICATOR KWADWO SMITH M.D. Performed By: #### C RP, BMP, CBC, ESR #### [facility] [address] Glucose [Mass/Vol] 53 mg/dL Off scale low [facility] Comment on above: Result Comment: [place] om Glucose Reference Range is dependent on time and content of last meal. Glucose of more than 200 mg/dL in a nonstressed, ambulatory subject supports the diagnosis of Diabetes Mellitus. Performed By: #### C RP, BMP, CBC, ESR #### [facility] [address] Glucose [Mass/Vol] 60 mg/dL Off scale low [facility] Comment on above: Result Comment: [place] om Glucose Reference Range is dependent on time and content of last meal. Glucose of more than 200 mg/dL in a nonstressed, ambulatory subject supports the diagnosis of Diabetes Mellitus. PERFORMED BY: [place] [address] PATHOLOGIST STEEL FABRICATOR KWADWO SMITH M.D. Performed By: #### C RP, BMP, CBC, ESR #### [address] Glucose [Mass/volume] in Ser um or PlasmaOrdered By: Will Cerna on 03-26-2025 Glucose [Mass/Vol] 46 mg/dL Off scale low 70-100 [facility] Comment on above: Critical Result Call ed to and read back by: VANESSA CHRISTIAN at: 03/26/2025 10:38:19 by:[email or web address] recommended reference rangeRandom Glucose Reference Range is dependent on time and content of last meal. Glucose of more than 200 mg/dL in a nonstressed, ambulatory subject supports the diagnosis of Diabetes Mellitus. Result Comment: Crit ical Result Called to and read back by: VANESSA CHRISTIAN at: 03/26/2025 10:38:19 by:MODESTA Random Glucose Reference Range is dependent on time and content of last meal. Glucose of more than 200 mg/dL in a nonstressed, ambulatory subject supports the diagnosis of Diabetes Mellitus. ADA recommended reference range Performed By: #### C RP, BMP, CBC, ESR #### [address] Hematocrit [Volume Fraction] of Blood by Automated countOrdered By: Will Cerna on 03-26-2025 Hematocrit (Bld) [Volume fraction] 33.8 % Low 38.8-50.0 [facility] Comment on above: Performed By: #### C RP, BMP, CBC, ESR #### [address] Hemoglobin [Mass/volume] in BloodOrdered By: Will Cerna on 03-26-2025 Hemoglobin (Bld) [Mass/Vol] 11.5 g/dL Low 13.0-17.0 [facility] Comment on above: Performed By: #### C RP, BMP, CBC, ESR #### [address] Hepatic Panelon 03-26-2025 Albumin [Mass/Vol] 4.3 g/dL Normal 3.5-5.7 [facility] Comment on above: Performed By: #### C RP, BMP, CBC, ESR #### [address] Bilirubin,Indirect 0.3 mg/dL Normal [facility] Comment on above: Performed By: #### C RP, BMP, CBC, ESR #### [address] Bilirubin.indirect [Mass/Vol] 0.10 mg/dL Normal 0.03-0.18 [facility] Comment on above: Performed By: #### C RP, BMP, CBC, ESR #### [address] Leukocytes [#/volume] correc scott for nucleated erythrocytes in Blood by Automated counOrdered By: Will Cerna on 03-26-2025 WBC corrected for nucl RBC Auto (Bld) [#/Vol] 10.7 10*3/uL High 4.1-10.5 [facility] Leukocytes [#/volume] in Blo od by Automated countOrdered By: Will Cerna on 03-26-2025 WBC (Bld) [#/Vol] 10.7 10*3/uL High 4.1-10.5 [facility] Comment on above: Performed By: #### C RP, BMP, CBC, ESR #### [facility] [address] [place] [address] Lymphocytes [#/volume] in Bl ood by Automated countOrdered By: Will Cerna on 03-26-2025 Lymphocytes (Bld) [#/Vol] 2.3 10*3/uL Normal 1.00-4.8 [facility] Comment on above: Performed By: #### C RP, BMP, CBC, ESR #### [address] Lymphocytes/100 leukocytes i n Blood by Automated countOrdered By: Will Cerna on 03-26-2025 Lymphocytes/100 WBC (Bld) 21.9 % Normal . [facility] Comment on above: Performed By: #### C RP, BMP, CBC, ESR #### [address] MCH [Entitic mass] by Automa scott countOrdered By: Will Cerna on 03-26-2025 MCH (RBC) [Entitic mass] 31.4 pg Normal 27.5-35.2 [facility] Comment on above: Performed By: #### C RP, BMP, CBC, ESR #### [address] MCHC Auto (RBC) [Mass/Vol]Or dered By: Will Cerna on 03-26-2025 MCHC (RBC) [Mass/Vol] 34.0 g/dL 32.5-35.6 [facility] MCV [Entitic volume] by Auto mated countOrdered By: Will Cerna on 03-26-2025 MCV (RBC) [Entitic vol] 92.3 fL Normal 83.5-101 [facility] Comment on above: Performed By: #### C RP, BMP, CBC, ESR #### [place] [id number] [place] Monocyte distribution width [Entitic volume] in Blood by AutomatedOrdered By: Will Cerna on 03-26-2025 Monocyte distribution width Auto (Bld) [Entitic vol] 16.12 % 0.00-20.00 [facility] Monocytes [#/volume] in Bloo d by Automated countOrdered By: Will Cerna on 03-26-2025 Monocytes (Bld) [#/Vol] 0.9 10*3/uL High 0.0-0.8 [facility] Comment on above: Performed By: #### C RP, BMP, CBC, ESR #### [facility] [address] Monocytes/100 leukocytes in Blood by Automated countOrdered By: Will Cerna on 03-26-2025 Monocytes/100 WBC (Bld) 8.3 % Normal . [facility] Comment on above: Performed By: #### C RP, BMP, CBC, ESR #### [facility] [address] Neutrophils [#/volume] in Bl ood by Automated countOrdered By: Will Cerna on 03-26-2025 Neutrophils (Bld) [#/Vol] 7.0 10*3/uL Normal 1.8-7.7 [facility] Comment on above: Performed By: #### C RP, BMP, CBC, ESR #### [facility] [address] [place] [address] Neutrophils/100 leukocytes i n Blood by Automated countOrdered By: Will Cerna on 03-26-2025 Neutrophils/100 WBC (Bld) 65.4 % Normal . [facility] Comment on above: Performed By: #### C RP, BMP, CBC, ESR #### [facility] [address] [place] [address] No Panel InformationOrdered By: Will Cerna on 03-26-2025 Bedside Glucose Comment See comment [facility] Comment on above: Glu2: WILL NOTIFY DR /RN Estimated GFR (CKD-EPI) 6.133 mL/Min [facility] Pharmacy Creatinine Clearance (Chem 14.00 [facility] Nucleated erythrocytes [Pres ence] in Blood by Automated countOrdered By: Will Cerna on 03-26-2025 Nucleated RBC Auto Ql (Bld) 0.0 /100{WBC} 0-0.5 [facility] Platelet mean volume [Entiti c volume] in Blood by Automated countOrdered By: Will Cerna on 03-26-2025 Platelet mean volume (Bld) [Entitic vol] 7.6 fL Normal 6.6-10.1 [facility] Comment on above: Performed By: #### C RP, BMP, CBC, ESR #### [facility] [address] Platelets [#/volume] in Bloo d by Automated countOrdered By: Will Cerna on 03-26-2025 Platelets (Bld) [#/Vol] 255 10*3/uL Normal 150-450 [facility] Comment on above: Performed By: #### C RP, BMP, CBC, ESR #### [address] Potassium [Moles/volume] in Serum or PlasmaOrdered By: Will Cerna on 03-26-2025 Potassium [Moles/Vol] 4.8 mmol/L Normal 3.5-5.1 [facility] Comment on above: Performed By: #### C RP, BMP, CBC, ESR #### [address] Protein [Mass/volume] in Ser um or PlasmaOrdered By: Will Cerna on 03-26-2025 Protein [Mass/Vol] 8.0 g/dL Normal 6.4-8.9 [facility] Comment on above: Performed By: #### C RP, BMP, CBC, ESR #### [address] Serum globulin measurement b y calculation (mass/volume)Ordered By: Will Cerna on 03-26-2025 Globulin (S) [Mass/Vol] 3.7 g/dL Normal [facility] Comment on above: Performed By: #### C RP, BMP, CBC, ESR #### [address] Serum or plasma albumin/glob ulin mass ratioOrdered By: Will Cerna on 03-26-2025 Albumin/Globulin [Mass ratio] 1.2 {ratio} Normal [facility] Comment on above: Performed By: #### C RP, BMP, CBC, ESR #### [facility] [address] Serum or plasma anion gap de terminationOrdered By: Will Cerna on 03-26-2025 Anion gap [Moles/Vol] 15.9 mmol/L High 6.0-15.0 [facility] Comment on above: Performed By: #### C RP, BMP, CBC, ESR #### [facility] [address] [place] [address] Serum or plasma non-glucuron idated bilirubin measurement (mass/volume)Ordered By: Will Cerna on 03-26-2025 Bilirubin.indirect [Mass/Vol] 0.3 mg/dL [facility] Sodium [Moles/volume] in Ser um or PlasmaOrdered By: Will Cerna on 03-26-2025 Sodium [Moles/Vol] 138 mmol/L Normal 136-145 [facility] Comment on above: Performed By: #### C RP, BMP, CBC, ESR #### [facility] [address] [place] [address] Urea nitrogen [Mass/volume] in Serum or PlasmaOrdered By: Will Cerna on 03-26-2025 Urea nitrogen [Mass/Vol] 85 mg/dL High 7-25 [facility] Comment on above: Performed By: #### C RP, BMP, CBC, ESR #### [facility] [address] [place] [address] Laboratory - Drug toxicology Ordered By: Jey Ramos on 02-13-2025 Amphetamines Ql (U) Negative [facility] Benzodiazepines Ql (U) Positive [facility] Cocaine Ql (U) Negative [facility] Opiates Ql (U) Negative [facility] Phencyclidine Ql (U) Negative [facility] No Panel InformationOrdered By: Jey Ramos on 06-10-2025 Urine Barbiturates Screen Negative [facility] Urine Marijuana (THC) Screen Positive [facility] ED Note-Physicianon 02-04-20 ED Note-Physician ED Note-Physician Basic Information Time Seen: Star Saucedo PA-C 02/02/2025 18:13 Chief Complaint pt has neuropathy [...] for 3 day(s), 12 tab(s), Refill(s) 0, [id number], 187, cm, 02/02/25 18:12:00 EDT, Height/Length Dosing, [...] EDT [address], [address] [place] [address]- Business (1) Additional Instructions: Call Dr for diagnosis based follow up Patient Education Peripheral Neuropathy Acute Pain, Adult Neuropathic Pain Attestation Patient seen and evaluated by the physician physiotherapy assistant. Attending physician was present in the emergency department and supervised care. This visit was performed by both the physician and an APC. I performed all aspects of the MDM as documented. This report was transcribed using voice recognition software. Every effort was made to ensure accuracy, however, inadvertently computerized tax director mistakes may be present. Appropriate healthcare [...] Use, 01/06 (more content not included)... Normal [facility] Comment on above: Result Comment: Elec tronically Signed By: Star Saucedo PA-C\.br\Date and Time Signed: 02/02/25 18:41 EDT\.br\Electronically Co-Signed By: Delano Benavides DO\.br\Date and Time Co-Signed: 02/03/25 06:04 EDT Basic Metabolic Panelon 01-06 Est, Glom Filt Rate 9 Low - PINF [facility] Comment on above: These results are not [...] Interpretation and review of laboratory results Abnormal [facility] Urea nitrogen/Creatinine [Mass ratio] 10 mg/mg 9 - 20 [facility] Basic Metabolic Profon 02-02 Anion gap [Moles/Vol] 16 mmol/L Normal 9-16 [facility] Comment on above: Performed By: #### B MP #### [facility] [address] [place] [address] Computer Trainer: Meredith Nolen MD Calcium [Mass/Vol] 9.3 mg/dL Normal 8.6-10.4 [facility] Comment on above: Performed By: #### B MP #### [facility] [address] [place], [place] [id number] Computer Trainer: Meredith Nolen MD Chloride [Moles/Vol] 98 mmol/L Normal 98-107 [facility] Comment on above: Performed By: #### B MP #### [address] [place], [place] [id number] Computer Trainer: Meredith Nolen MD CO2 [Moles/Vol] 23 mmol/L Normal 20-31 [facility] Comment on above: Performed By: #### B MP #### [facility] [address] [place], [place] [id number] Computer Trainer: Meredith Nolen MD Creatinine [Mass/Vol] 7.0 mg/dL Critically high 0.70-1.20 [facility] Comment on above: Performed By: #### B MP #### [address] [place], [place] [id number] Computer Trainer: Meredith Nolen MD Glucose [Mass/Vol] 296 mg/dL High 74-99 [facility] Comment on above: Performed By: #### B MP #### [address] [place], [place] [id number] Computer Trainer: Meredith Nolen MD Potassium [Moles/Vol] 6.1 mmol/L Critically high 3.7-5.3 [facility] Comment on above: Specimen hemolysis h as exceeded the interference as defined by Yaima. Value may be falsely increased. Suggest recollection if clinically indicated. Result Comment: Spec imen hemolysis has exceeded the interference as defined by Yaima. Value may be falsely increased. Suggest recollection if clinically indicated. Performed By: #### B MP #### [facility] [address] [place] [address] [place] [place], [place] [id number] Computer Trainer: Meredith Nolen MD Sodium [Moles/Vol] 137 mmol/L Normal 136-145 [facility] Comment on above: Performed By: #### B MP #### [facility] [address] [place] [address] Computer Trainer: Meredith Nolen MD Urea nitrogen [Mass/Vol] 69 mg/dL High 6-20 [facility] Comment on above: Performed By: #### B MP #### [facility] [address] [place] [address] Computer Trainer: Meredith Nolen MD BUN/CRE Ratio 10 Normal 9-20 [facility] Comment on above: Performed By: #### B MP #### [facility] [address] [place] [address] Computer Trainer: Meredith Nolen MD GFR/1.73 sq M.predicted among non-blacks MDRD (S/P/Bld) [Vol rate/Area] 9 mL/min/{1.73_m2} Low >60 [facility] Comment on above: Result Comment: These results [...] secretion. Performed By: #### B MP #### [facility] [address] [place] [address] Computer Trainer: Meredith Nolen MD CBC with Auto Differentialon 02-02-2025 Basophils (Bld) [#/Vol] 0.04 10*3/uL [facility] Basophils/100 WBC (Bld) 0 % 0 - 2 % [facility] Eosinophils (Bld) [#/Vol] 0.35 10*3/uL [facility] Eosinophils/100 WBC (Bld) 3 % 1 - 4 % [facility] Erythrocyte distribution width (RBC) [Ratio] 14.6 % High 11.8 - 14.4 % [facility] Hematocrit (Bld) [Volume fraction] 31.8 % Low 40.7 - 50.3 % [facility] Hemoglobin (Bld) [Mass/Vol] 10.4 g/dL Low 13.0 - 17.0 g/dL [facility] Immature granulocytes (Bld) [#/Vol] 0.13 10*3/uL [facility] Immature granulocytes/100 WBC (Bld) 1 % High 0 [facility] Interpretation and review of laboratory results Abnormal [facility] Lymphocytes/100 WBC (Bld) 13 % Low 24 - 43 % [facility] Lymphocytes/100 WBC (Bld) 1.35 % [facility] MCH (RBC) [Entitic mass] 31.3 pg 25.2 - 33.5 pg [facility] MCHC (RBC) [Mass/Vol] 32.7 g/dL 28.4 - 34.8 g/dL [facility] MCV (RBC) [Entitic vol] 95.8 fL 82.6 - 102.9 fL [facility] Monocytes/100 WBC (Bld) 7 % 3 - 12 % [facility] Monocytes/100 WBC (Bld) 0.76 % [facility] Neutrophils/100 WBC (Bld) 76 % High 36 - 65 % [facility] Nucleated RBC/100 WBC (Bld) [Ratio] 0 % 0.0 per 100 WBC [facility] Platelet mean volume (Bld) [Entitic vol] 10.1 fL 8.1 - 13.5 fL [facility] Platelets (Bld) [#/Vol] 208 10*3/uL [facility] RBC (Bld) [#/Vol] 3.32 10*6/uL Low 4.21 - 5.7 7 m/uL [facility] Segmented neutrophils/100 WBC (Bld) 7.75 % [facility] WBC other (Bld) [#/Vol] 10.4 [facility] CBC with Diffon 02-02-2025 Abs. Basophil 0.04 k/uL Normal 0.00-0.20 [facility] Comment on above: Performed By: #### C DP, REJEC #### [address] [place] [address] Computer Trainer: Meredith Nolne MD Abs.Imm.Granulocyte 0.13 k/uL Normal 0.00-0.30 [facility] Comment on above: Performed By: #### C DP, REJEC #### [address] [place] [address] Computer Trainer: Meredith Nolen MD Abs.Neutrophil (Seg) 7.75 k/uL Normal 1.50-8.10 [facility] Comment on above: Performed By: #### C DP, REJEC #### [address] [place] [address] Computer Trainer: Meredith Nolen MD Basophils/100 WBC (Bld) 0 % Normal 0-2 [facility] Comment on above: Performed By: #### C DP, REJEC #### [address] [place], [place] [address] Computer Trainer: Meredith Nolen MD Eosinophils (Bld) [#/Vol] 0.35 10*3/uL Normal 0.00-0.44 [facility] Comment on above: Performed By: #### C DP, REJEC #### [address] [place], [place] [address] Computer Trainer: Meredith Nolen MD Eosinophils/100 WBC (Bld) 3 % Normal 1-4 [facility] Comment on above: Performed By: #### C DP, REJEC #### [address] [place] [address] Computer Trainer: Meredith Nolen MD Erythrocyte distribution width (RBC) [Ratio] 14.6 % High 11.8-14.4 [facility] Comment on above: Performed By: #### C DP, REJEC #### [facility] [address] [place], [place] [id number] Computer Trainer: Meredith Nolen MD Hematocrit (Bld) [Volume fraction] 31.8 % Low 40.7-50.3 [facility] Comment on above: Performed By: #### C DP, REJEC #### [address] [place], [place] [id number] Computer Trainer: Meredith Nolen MD Hemoglobin (Bld) [Mass/Vol] 10.4 g/dL Low 13.0-17.0 [facility] Comment on above: Performed By: #### C DP, REJEC #### [address] [place] [facility] Computer Trainer: Meredith Nolen MD Immature granulocytes/100 WBC (Bld) 1 % High 0 [facility] Comment on above: Performed By: #### C DP, REJEC #### [address] [place], [facility] Computer Trainer: Meredith Nolen MD Lymphocytes (Bld) [#/Vol] 1.35 10*3/uL Normal 1.10-3.70 [facility] Comment on above: Performed By: #### C DP, REJEC #### [address] [place], [place] [id number] Computer Trainer: Meredith Nolen MD Lymphocytes/100 WBC (Bld) 13 % Low 24-43 [facility] Comment on above: Performed By: #### C DP, REJEC #### [address] [place], [place] [id number] Computer Trainer: Meredith Nolen MD MCH (RBC) [Entitic mass] 31.3 pg Normal 25.2-33.5 [facility] Comment on above: Performed By: #### C DP, REJEC #### [address] [place] [id number] Computer Trainer: Meredith Nolen MD MCHC (RBC) [Mass/Vol] 32.7 g/dL Normal 28.4-34.8 [facility] Comment on above: Performed By: #### C DP, REJEC #### [facility] [address] [place] [address] Dr. [place], [place] [id number] Computer Trainer: Meredith Nolen MD MCV (RBC) [Entitic vol] 95.8 fL Normal 82.6-102.9 [facility] Comment on above: Performed By: #### C DP, REJEC #### [address] [place], [place] [id number] Computer Trainer: Meredith Nolen MD Monocytes (Bld) [#/Vol] 0.76 10*3/uL Normal 0.10-1.20 [facility] Comment on above: Performed By: #### C DP, REJEC #### [address] [place], [place] [id number] Computer Trainer: Meredith Nolen MD Monocytes/100 WBC (Bld) 7 % Normal 3-12 [facility] Comment on above: Performed By: #### C DP, REJEC #### [address] [place], [place] [id number] Computer Trainer: Meredith Nolen MD Neutrophil (Seg) 76 % High 36-65 [facility] Comment on above: Performed By: #### C DP, REJEC #### [facility] [address] [place] [address] Dr. [place], [place] [id number] Computer Trainer: Meredith Nolen MD NRBC Automated 0.0 per 100 WBC Normal 0.0 [facility] Comment on above: Performed By: #### C DP, REJEC #### [facility] [address] [place] [address] Dr. [place], [place] [id number] Computer Trainer: Meredith Nolen MD Platelet mean volume (Bld) [Entitic vol] 10.1 fL Normal 8.1-13.5 [facility] Comment on above: Performed By: #### C DP, REJEC #### [facility] [address] [place], [place] [id number] Computer Trainer: Meredith Nolen MD Platelets (Bld) [#/Vol] 208 10*3/uL Normal 138-453 [facility] Comment on above: Performed By: #### C DP, REJEC #### [facility] [address] [place] [address] Computer Trainer: Meredith Nolen MD RBC (Bld) [#/Vol] 3.32 10*6/uL Low 4.21-5.77 [facility] Comment on above: Performed By: #### C DP, REJEC #### [facility] [address] [place] [address] Computer Trainer: Meredith Nolen MD WBC (Bld) [#/Vol] 10.4 10*3/uL Normal 3.5-11.3 [facility] Comment on above: Performed By: #### C DP, REJEC #### [facility] [address] [place] [address] Computer Trainer: Meredith Nolen MD ED Clinical Summaryon 2024 ED Clinical Summary ED Clinical Summary [address] [address] ED Clinical Summary Person Information Name: JANNEVANS Hook Jr [place] Age: 55 Years : 1970 Sex: Male Language: Swiss PCP: IDANIA RICKETTS DO Marital Status: Visit [...] 02/02/2025 18:32:45 02/02/2025 18:32:45 02/02/2025 18:32:45 ADDRESS: [address] [place], [place] [address]YOUNG MACHADO [place] [id number] PHYS DOC NOTES: MEDICAL INFORMATION: Prescriptions Given: New Medications [id number], [address], [place] [id number], [phone] acetaminophen-oxycodone (acetaminophen-oxycodon e 325 mg-5 mg Tab) 1 Tablets By Mouth every 6 hours as needed for pain for 3 Days. Refills: 0. PATIENT EDUCATION INFORMATION: Instructions: Peripheral Neuropathy; Acute Pain, Adult; Neuropathic Pain Follow up: With: Address: When: IDANIA RICKETTS [address], [address] [place] [address] [employer] (1) In 3 days 02/05/2025 Comments: Call Dr for diagnosis based follow up DIAGNOSIS: Neuropathic pain Normal [facility] ED Patient Summaryon 025 ED Patient Summary ED Patient Summary [address] [address] Patient Discharge Instructions Person Information Name: EVANS FORTE Jr Age: 55 Years Arrival Date: 02/02/2025 18:02:34 Discharge Diagnosis: Neuropathic pain Primary Care Physician: IDANIA RICKETTS DO Provider Information Primary Provider: Delano Benavides DO Advanced Associate Program Manager:Star Saucedo PA-C The exam and treatment you received in the Emergency Department were for an urgent problem and are not intended as complete care. It is important that you follow up with a doctor, nurse practitioner, or physician???s physiotherapy assistant for ongoing care. If your symptoms [...] instructions: Follow-up Instructions: With: Address: When: [address], [facility] [address] [place] [address] [employer] (8) In 3 days 02/05/2025 Comments: Call Dr [...] opioids can be used to help relieve dhpthvjf-vy-hxokkw pain and are often prescribed following a [...] from the Food and Drug Administration (www.fda.gov/Drugs/Reso urcesForYou). ??? Visit www.cdc.gov/drugoverdos e to learn about the risks of opioids abuse and over (more content not included)... Normal [facility] Specimen Rejectionon 025 Reason for rejection Unable to perform testing: Specimen hemolyzed. Normal [facility] Comment on above: Performed By: #### C PEE, REJEC #### [facility] [address] [place] [address] [place] [address] Computer Trainer: Meredith Nolen MD Source of sample .BLOOD Normal [facility] Comment on above: Performed By: #### C PEE, REJEC #### [facility] [address] [place] [address] [place] [address] Computer Trainer: Meredith Nolen MD Test ordered [facility] Comment on above: Performed By: #### C PEE, REJEC #### [address] [place] [address] Computer Trainer: Meredith Nolen MD XR FOOT RIGHT (MIN [...] by: Tami Concepcion MD 02/02/25 Final result Normal [facility] XR Foot - right 3 Viewson 1. Soft tissue ulceration along the plantar aspect of the posterior heel. 2. No radiographic evidence of acute osteomyelitis. [facility] EXAMINATION: THREE XRAY VIEWS OF THE [...] posterior heel. No evidence of osseous erosions. [facility] Tami Concepcion MD - 02/02/2025 EXAMINATION: [...] 2. No radiographic evidence of acute osteomyelitis. [facility] Radiology Study observation (narrative) [facility] XR Foot - right 3 ViewsOrder ed By: Tami Concepcion on 02-02-2025 [facility] Work Phone: 36on 01-15-2025 36 Contacted patient regarding zabrinareynold ROA to contact clinic. [facility] 36on 01-02-2025 36 Please advise on nex t step. Medicare will not cover Nucynta for his diagnosis. [facility] 36 Patient asking if he can get some pain meds ordered since his SCS trial today was canceled due to not being approved. Nucynta was not approved by his insurance. Patient aware we will contact him after hearing back from provider. Thanks [facility] Orders Onlyon 01-02-2025 Orders Only [id number] Evans Forte 1970 M Date Provider Department Center 01/02/2025 YOLIE MALIK MP PAIN [facility] Family History Problem Relation [...] Sister Maternal Grandmother Daughter Father's Brother Alive [facility] Telephoneon 01-02-2025 Telephone [phone] Jama 1970 M Date Provider Department Center 01/02/2025 LEIF BEAR MP PAIN [facility] Family History Problem Relation [...] Sister Maternal Grandmother Daughter Father's Brother Alive [facility] Alanine aminotransferase [En zymatic activity/volume] in Serum or PlasmaOrdered By: Ivana Salcedo on 01-01-2025 ALT [Catalytic activity/Vol] Alanine aminotransferase [Enzymatic activity/volume] in Serum or Plasma [facility] ALT [Catalytic activity/Vol] 28 U/L Normal 7-52 [facility] Comment on above: Performed By: #### C RP, BMP, CBC, ESR #### [facility] [address] Albumin [Mass/volume] in Ser um or Plasma by Bromocresol green (BCG) dye binding methoOrdered By: Ivana Salcedo on 01-01-2025 Albumin BCG dye [Mass/Vol] Albumin [Mass/volume] in Serum or Plasma by Bromocresol green (BCG) dye binding metho 3.5-5.7 [facility] Albumin BCG dye [Mass/Vol] 4.4 g/dL 3.5-5.7 [facility] Alkaline phosphatase [Enzyma tic activity/volume] in Serum or PlasmaOrdered By: Ivana Salcedo on 01-01-2025 ALP [Catalytic activity/Vol] Alkaline phosphatase [Enzymatic activity/volume] in Serum or Plasma 34-104 [facility] ALP [Catalytic activity/Vol] 88 U/L Normal 34-104 [facility] Comment on above: Performed By: #### C RP, BMP, CBC, ESR #### [facility] [address] [place] [address] Aspartate aminotransferase [ Enzymatic activity/volume] in Serum or PlasmaOrdered By: Ivana Salcedo on 01-01-2025 AST [Catalytic activity/Vol] Aspartate aminotransferase [Enzymatic activity/volume] in Serum or Plasma Low 13-39 [facility] AST [Catalytic activity/Vol] 10 U/L Low 13-39 [facility] Comment on above: Performed By: #### C RP, BMP, CBC, ESR #### [facility] [address] Basophils Auto (Bld) [#/Vol] Ordered By: Ivana Salcedo on 01-01-2025 Basophils (Bld) [#/Vol] Automated basophil count 0.0-0.2 [facility] Basophils [#/volume] in Bloo d by Automated countOrdered By: Ivana Salcedo on 01-01-2025 Basophils (Bld) [#/Vol] 0.1 10*3/uL Normal 0.0-0.2 [facility] Comment on above: Result Comment: PERF ORMED BY: [place] [address] PATHOLOGIST STEEL FABRICATOR KIM ELLIOTT M.D. Performed By: #### C RP, BMP, CBC, ESR #### [facility] [address] Basophils/100 WBC Auto (Bld) Ordered By: Ivana Salcedo on 01-01-2025 Basophils/100 WBC (Bld) Automated basophil % . [facility] Basophils/100 leukocytes in Blood by Automated countOrdered By: Ivana Salcedo on 01-01-2025 Basophils/100 WBC (Bld) 0.8 % Normal . [facility] Comment on above: Performed By: #### C RP, BMP, CBC, ESR #### [facility] [address] [place] [address] Bilirubin.total [Mass/volume ] in Serum or PlasmaOrdered By: Ivana Salcedo on 01-01-2025 Bilirubin [Mass/Vol] Bilirubin.total [Mass/volume] in Serum or Plasma 0.3-1.0 [facility] Bilirubin [Mass/Vol] 0.5 mg/dL Normal 0.3-1.0 [facility] Comment on above: Performed By: #### C RP, BMP, CBC, ESR #### [facility] [address] [place] [address] COVID Cepheid NegativeOrdere d By: Ivana Salcedo on 01-01-2025 SARS-CoV-2 (COVID-19) Ab IA Ql COVID Cepheid Negative [facility] Comment on above: This is a duplicate Cepheid Xpert Xpress CoV-2/Flu/RSV Plus RNA by RT-PCR result to be used for statistical tracking purpose only. SARS-CoV-2 (COVID-19) Ab IA Ql Negative Negative [facility] Comment on above: This is a duplicate [...] or Cepheid Disclaimer revoked sooner. PERFORMED BY: [facility] [place] [address] PATHOLOGIST STEEL FABRICATOR KIM ELLIOTT M.D. Normal [facility] Comment on above: Performed By: #### C RP, BMP, CBC, ESR #### [facility] [address] Calcium [Mass/volume] in Ser um or PlasmaOrdered By: Ivana Salcedo on 01-01-2025 Calcium [Mass/Vol] Calcium [Mass/volume ] in Serum or Plasma 8.6-10.3 [facility] Calcium [Mass/Vol] 9.2 mg/dL Normal 8.6-10.3 [facility] Comment on above: Performed By: #### C RP, BMP, CBC, ESR #### [facility] [address] [place] [address] Carbon dioxide, total [Moles /volume] in Serum or PlasmaOrdered By: Ivana Salcedo on 01-01-2025 CO2 [Moles/Vol] Carbon dioxide, tota l [Moles/volume] in Serum or Plasma 21.0-31.0 [facility] CO2 [Moles/Vol] 27.1 mmol/L Normal 21.0-31.0 [facility] Comment on above: Performed By: #### C RP, BMP, CBC, ESR #### [address] Cepheid COVID PCR Negativeon 01-01-2025 SARS-CoV-2 (COVID-19) RNA SHAY+probe Ql (Unsp spec) Negative Normal Negative [facility] Comment on above: Result Comment: This is a duplicate Cepheid Xpert Xpress CoV-2/Flu/RSV Plus RNA by RT-PCR result to be used for statistical tracking purpose only. PERFORMED BY: [place] [address] PATHOLOGIST STEEL FABRICATOR KIM ELLIOTT M.D. Performed By: #### C RP, BMP, CBC, ESR #### [facility] [address] [place] [address] Chloride [Moles/volume] in S james or PlasmaOrdered By: Ivana Salcedo on 01-01-2025 Chloride [Moles/Vol] Chloride [Moles/vol ume] in Serum or Plasma 98-107 [facility] Chloride [Moles/Vol] 99 mmol/L Normal 98-107 [facility] Comment on above: Performed By: #### C RP, BMP, CBC, ESR #### [address] Complete Blood Count Auto Di ffon 01-01-2025 Mean Corpuscular HGB Conc 34.3 g/dL Normal 32.5-35.6 [facility] Comment on above: Performed By: #### C RP, BMP, CBC, ESR #### [address] Monocytes/100 WBC (Bld) 16.78 % Normal 0.00-20.00 [facility] Comment on above: Performed By: #### C RP, BMP, CBC, ESR #### [address] NRBC% 0.0 /100{WBC} Normal 0-0.5 [facility] Comment on above: Performed By: #### C RP, BMP, CBC, ESR #### [address] Comprehensive Metabolic Pane nick 01-01-2025 Albumin [Mass/Vol] 4.4 g/dL Normal 3.5-5.7 [facility] Comment on above: Performed By: #### C RP, BMP, CBC, ESR #### [address] Creatinine Clr Calc Pharmacy 20.53 Normal [facility] Comment on above: Result Comment: PERF ORMED BY: [place] [address] PATHOLOGIST STEEL FABRICATOR KIM ELLIOTT M.D. Performed By: #### C RP, BMP, CBC, ESR #### [address] Estimated GFR 9.886 mL/Min Normal [facility] Comment on above: Performed By: #### C RP, BMP, CBC, ESR #### [place] [id number] [facility] Creatinine [Mass/volume] in Serum or PlasmaOrdered By: Ivana Salcedo on 01-01-2025 Creatinine [Mass/Vol] Creatinine [Mass/volume] in Serum or Plasma High 0.70-1.30 [facility] Creatinine [Mass/Vol] 6.30 mg/dL High 0.70-1.30 [facility] Comment on above: Performed By: #### C RP, BMP, CBC, ESR #### [place] [id number] [facility] D-Dimer High Sensitivityon 0 01-01-2025 D-Dimer High Sensitivity <200 Normal 0-243 [facility] Comment on above: Result [...] coagulation studies. Please contact the laboratory at [phone] for redraw instructions. PERFORMED BY: [place] [address] PATHOLOGIST STEEL FABRICATOR KIM ELLIOTT M.D. Performed By: #### C RP, BMP, CBC, ESR #### [place] [id number] [facility] ECG 12 lead ECGon 01-01-2025 ECG 12 lead ECG [facility] [place] [address] [place] [address] Electrocardiograph Report Signed Patient: Evans Forte MR#: [id number] : 1970 Acct:[id number] Age/Sex: 54 / M ADM Date: 01/01/25 Loc: ER Room: Type: [facility] ER Attending Dr: Ordering Provider: Ivana Salcedo [...] inversion avl Confirmed by Jessica Al MD ([id number]) on 01/02/2025 7:26:58 AM Referred By: Electronically Signed By: Jessica Al MD Transcribed By: MUS Signed By Jessica Al MD 12/06 05/31 0792 Normal [facility] Eosinophils Auto (Bld) [#/Vo l]Ordered By: Ivana Salcedo on 01-01-2025 Eosinophils (Bld) [#/Vol] Automated eosinophil count 0.0-0.45 [facility] Eosinophils [#/volume] in Bl ood by Automated countOrdered By: Ivana Salcedo on 01-01-2025 Eosinophils (Bld) [#/Vol] 0.2 10*3/uL Normal 0.0-0.45 [facility] Comment on above: Performed By: #### C RP, BMP, CBC, ESR #### [facility] [address] [place] [address] [place] Eosinophils/100 WBC Auto (Bl d)Ordered By: Ivana Salcedo on 01-01-2025 Eosinophils/100 WBC (Bld) Automated eosinophil % . [facility] Eosinophils/100 leukocytes i n Blood by Automated countOrdered By: Ivana Salcedo on 01-01-2025 Eosinophils/100 WBC (Bld) 2.1 % Normal . [facility] Comment on above: Performed By: #### C RP, BMP, CBC, ESR #### [facility] [address] Erythrocyte distribution wid th Auto (RBC) [Ratio]Ordered By: Ivana Krise on 01-01-2025 Erythrocyte distribution width (RBC) [Ratio] Erythrocyte distribution width [Ratio] by Automated count High 12.0-14.8 [facility] Erythrocyte distribution wid th [Ratio] by Automated countOrdered By: Ivana Salcedo on 01-01-2025 Erythrocyte distribution width (RBC) [Ratio] 15.7 % High 12.0-14.8 [facility] Comment on above: Performed By: #### C RP, BMP, CBC, ESR #### [facility] [address] Erythrocytes [#/volume] in B lood by Automated countOrdered By: Ivana Salcedo on 01-01-2025 RBC (Bld) [#/Vol] 3.84 10*6/uL Low 3.90-5.60 [facility] Comment on above: Performed By: #### C RP, BMP, CBC, ESR #### [facility] [address] Fibrin D-dimer [Presence] in Platelet poor plasma by Latex agglutinationOrdered By: Ivana Salcedo on 01-01-2025 Fibrin D-dimer LA Ql (PPP) Fibrin D-dimer [Presence] in Platelet poor plasma by Latex agglutination 0-243 [facility] Comment on above: The reference range for [...] coagulation studies. Please contact the laboratory at [phone] for redraw instructions. Fibrin D-dimer LA Ql (PPP) < 200 ng/mL 0-243 [facility] Comment on above: The reference range for [...] coagulation studies. Please contact the laboratory at [phone] for redraw instructions. Globulin Calc (S) [Mass/Vol] Ordered By: Ivana Salcedo on 01-01-2025 Globulin (S) [Mass/Vol] Serum globulin measurement by calculation (mass/volume) [facility] Glucose [Mass/volume] in Ser um or PlasmaOrdered By: Ivana Salcedo on 01-01-2025 Glucose [Mass/Vol] Glucose [Mass/volume ] in Serum or Plasma High 70-100 [facility] Comment on above: ADA recommended refe rence rangeRandom Glucose Reference Range is dependent on time and content of last meal. Glucose of more than 200 mg/dL in a nonstressed, ambulatory subject supports the diagnosis of Diabetes Mellitus. Glucose [Mass/Vol] 185 mg/dL High 70-100 [facility] Comment on above: ADA recommended refe rence rangeRandom Glucose Reference Range is dependent on time and content of last meal. Glucose of more than 200 mg/dL in a nonstressed, ambulatory subject supports the diagnosis of Diabetes Mellitus. Result Comment: [place] [facility] Glucose Reference Range is dependent on time and content of last meal. Glucose of more than 200 mg/dL in a nonstressed, ambulatory subject supports the diagnosis of Diabetes Mellitus. ADA recommended reference range Performed By: #### C RP, BMP, CBC, ESR #### [facility] [address] [place] [address] Hematocrit Auto (Bld) [Volum e fraction]Ordered By: Ivana Salcedo on 01-01-2025 Hematocrit (Bld) [Volume fraction] Hematocrit [Volume Fraction] of Blood by Automated count Low 38.8-50.0 [facility] Hematocrit [Volume Fraction] of Blood by Automated countOrdered By: Ivana Salcedo on 01-01-2025 Hematocrit (Bld) [Volume fraction] 35.0 % Low 38.8-50.0 [facility] Comment on above: Performed By: #### C RP, BMP, CBC, ESR #### [facility] [address] Hemoglobin [Mass/volume] in BloodOrdered By: Ivana Salcedo on 01-01-2025 Hemoglobin (Bld) [Mass/Vol] Hemoglobin [Mass/volume] in Blood Low 13.0-17.0 [facility] Hemoglobin (Bld) [Mass/Vol] 12.0 g/dL Low 13.0-17.0 [facility] Comment on above: Performed By: #### C RP, BMP, CBC, ESR #### [facility] [address] Leukocytes [#/volume] correc scott for nucleated erythrocytes in Blood by Automated counOrdered By: Ivana Salcedo on 01-01-2025 WBC corrected for nucl RBC Auto (Bld) [#/Vol] Leukocytes [#/volume] corrected for nucleated erythrocytes in Blood by Automated coun 4.1-10.5 [facility] WBC corrected for nucl RBC Auto (Bld) [#/Vol] 9.3 10*3/uL 4.1-10.5 [facility] Leukocytes [#/volume] in Blo od by Automated countOrdered By: Ivana Salcedo on 01-01-2025 WBC (Bld) [#/Vol] 9.3 10*3/uL Normal 4.1-10.5 [facility] Comment on above: Performed By: #### C RP, BMP, CBC, ESR #### [facility] [address] Lymphocytes Auto (Bld) [#/Vo l]Ordered By: Ivana Salcedo on 01-01-2025 Lymphocytes (Bld) [#/Vol] Lymphocytes [#/volume] in Blood by Automated count 1.00-4.8 [facility] Lymphocytes [#/volume] in Bl ood by Automated countOrdered By: Ivana Salcedo on 01-01-2025 Lymphocytes (Bld) [#/Vol] 1.4 10*3/uL Normal 1.00-4.8 [facility] Comment on above: Performed By: #### C RP, BMP, CBC, ESR #### [facility] [address] [place] [address] Lymphocytes/100 WBC Auto (Bl d)Ordered By: Ivana Salcedo on 01-01-2025 Lymphocytes/100 WBC (Bld) Lymphocytes/100 leukocytes in Blood by Automated count . [facility] Lymphocytes/100 leukocytes i n Blood by Automated countOrdered By: Ivana Salcedo on 01-01-2025 Lymphocytes/100 WBC (Bld) 14.7 % Normal . [facility] Comment on above: Performed By: #### C RP, BMP, CBC, ESR #### [facility] [address] [place] [address] MCH Auto (RBC) [Entitic mass ]Ordered By: Ivana Salcedo on 01-01-2025 MCH (RBC) [Entitic mass] MCH [Entitic mass] by Automated count 27.5-35.2 [facility] MCH [Entitic mass] by Automa scott countOrdered By: Ivana Salcedo on 01-01-2025 MCH (RBC) [Entitic mass] 31.3 pg Normal 27.5-35.2 [facility] Comment on above: Performed By: #### C RP, BMP, CBC, ESR #### [facility] [address] [place] [address] MCHC Auto (RBC) [Mass/Vol]Or dered By: Ivana Salcedo on 01-01-2025 MCHC (RBC) [Mass/Vol] MCHC [Mass/volume] by Automated count 32.5-35.6 [facility] MCHC (RBC) [Mass/Vol] 34.3 g/dL 32.5-35.6 [facility] MCV Auto (RBC) [Entitic vol] Ordered By: Ivana Salcedo on 01-01-2025 MCV (RBC) [Entitic vol] MCV [Entitic volume] by Automated count 83.5-101 [facility] MCV [Entitic volume] by Auto mated countOrdered By: Ivana Salcedo on 01-01-2025 MCV (RBC) [Entitic vol] 91.2 fL Normal 83.5-101 [facility] Comment on above: Performed By: #### C RP, BMP, CBC, ESR #### [facility] [address] Monocyte distribution width [Entitic volume] in Blood by AutomatedOrdered By: Ivana Salcedo on 01-01-2025 Monocyte distribution width Auto (Bld) [Entitic vol] Monocyte distribution width [Entitic volume] in Blood by Automated 0.00-20.00 [facility] Monocyte distribution width Auto (Bld) [Entitic vol] 16.78 % 0.00-20.00 [facility] Monocytes Auto (Bld) [#/Vol] Ordered By: Ivana Salcedo on 01-01-2025 Monocytes (Bld) [#/Vol] Automated blood monocyte count 0.0-0.8 [facility] Monocytes [#/volume] in Bloo d by Automated countOrdered By: Ivana Salcedo on 01-01-2025 Monocytes (Bld) [#/Vol] 0.8 10*3/uL Normal 0.0-0.8 [facility] Comment on above: Performed By: #### C RP, BMP, CBC, ESR #### [facility] [address] [place] [address] [place] Monocytes/100 WBC Auto (Bld) Ordered By: Ivana Salcedo on 01-01-2025 Monocytes/100 WBC (Bld) Automated monocyte % . [facility] Monocytes/100 leukocytes in Blood by Automated countOrdered By: Ivana Salcedo on 01-01-2025 Monocytes/100 WBC (Bld) 8.8 % Normal . [facility] Comment on above: Performed By: #### C RP, BMP, CBC, ESR #### [facility] [address] Neutrophils Auto (Bld) [#/Vo l]Ordered By: Ivana Salcedo on 01-01-2025 Neutrophils (Bld) [#/Vol] Neutrophils [#/volume] in Blood by Automated count 1.8-7.7 [facility] Neutrophils [#/volume] in Bl ood by Automated countOrdered By: Ivana Salcedo on 01-01-2025 Neutrophils (Bld) [#/Vol] 6.9 10*3/uL Normal 1.8-7.7 [facility] Comment on above: Performed By: #### C RP, BMP, CBC, ESR #### [facility] [address] Neutrophils/100 WBC Auto (Bl d)Ordered By: Ivana Salcedo on 01-01-2025 Neutrophils/100 WBC (Bld) Automated neutrophil % . [facility] Neutrophils/100 leukocytes i n Blood by Automated countOrdered By: Ivana Salcedo on 01-01-2025 Neutrophils/100 WBC (Bld) 73.6 % Normal . [facility] Comment on above: Performed By: #### C RP, BMP, CBC, ESR #### [facility] [address] [place] [address] No Panel InformationOrdered By: Ivana Salcedo on 01-01-2025 Estimated GFR (CKD-EPI) 9.886 mL/Min [facility] Creatinine Clearance (Chem 20.53 [facility] Nucleated erythrocytes [Pres ence] in Blood by Automated countOrdered By: Ivana Salcedo on 01-01-2025 Nucleated RBC Auto Ql (Bld) Nucleated erythrocytes [Presence] in Blood by Automated count 0-0.5 [facility] Nucleated RBC Auto Ql (Bld) 0.0 /100{WBC} 0-0.5 [facility] Platelet mean volume Auto (B ld) [Entitic vol]Ordered By: Ivana Salcedo on 01-01-2025 Platelet mean volume (Bld) [Entitic vol] Platelet mean volume [Entitic volume] in Blood by Automated count 6.6-10.1 [facility] Platelet mean volume [Entiti c volume] in Blood by Automated countOrdered By: Ivana Salcedo on 01-01-2025 Platelet mean volume (Bld) [Entitic vol] 7.4 fL Normal 6.6-10.1 [facility] Comment on above: Performed By: #### C RP, BMP, CBC, ESR #### [address] Platelets Auto (Bld) [#/Vol] Ordered By: Ivana Salcedo on 01-01-2025 Platelets (Bld) [#/Vol] Platelets [#/volume] in Blood by Automated count 150-450 [facility] Platelets [#/volume] in Bloo d by Automated countOrdered By: Ivana Salcedo on 01-01-2025 Platelets (Bld) [#/Vol] 304 10*3/uL Normal 150-450 [facility] Comment on above: Performed By: #### C RP, BMP, CBC, ESR #### [address] Potassium [Moles/volume] in Serum or PlasmaOrdered By: Ivana Salcedo on 01-01-2025 Potassium [Moles/Vol] Potassium [Moles/volume] in Serum or Plasma 3.5-5.1 [facility] Potassium [Moles/Vol] 4.8 mmol/L Normal 3.5-5.1 [facility] Comment on above: Performed By: #### C RP, BMP, CBC, ESR #### [address] Protein [Mass/volume] in Ser um or PlasmaOrdered By: Ivana Salcedo on 01-01-2025 Protein [Mass/Vol] Protein [Mass/volume ] in Serum or Plasma 6.4-8.9 [facility] Protein [Mass/Vol] 8.4 g/dL Normal 6.4-8.9 [facility] Comment on above: Performed By: #### C RP, BMP, CBC, ESR #### [address] RBC Auto (Bld) [#/Vol]Ordere d By: Ivana Salcedo on 01-01-2025 RBC (Bld) [#/Vol] Erythrocytes [#/volu me] in Blood by Automated count Low 3.90-5.60 [facility] Respiratory specimen influen za A virus, influenza B virus, respiratory syncytical virOrdered By: Ivana Salcedo on 01-01-2025 SARS-CoV-2 (COVID-19) RNA SHAY+probe Ql (Unsp spec) Respiratory specimen influenza A virus, influenza B virus, respiratory syncytical vir [facility] SARS-CoV-2 (COVID-19) RNA SHAY+probe Ql (Unsp spec) [facility] Serum globulin measurement b y calculation (mass/volume)Ordered By: Ivana Salcedo on 01-01-2025 Globulin (S) [Mass/Vol] 4.0 g/dL Normal [facility] Comment on above: Performed By: #### C RP, BMP, CBC, ESR #### [facility] [address] [place] [address] Serum or plasma albumin/glob ulin mass ratioOrdered By: Ivana Salcedo on 01-01-2025 Albumin/Globulin [Mass ratio] Serum or plasma albumin/globulin mass ratio [facility] Albumin/Globulin [Mass ratio] 1.1 {ratio} Normal [facility] Comment on above: Performed By: #### C RP, BMP, CBC, ESR #### [facility] [address] Serum or plasma anion gap de terminationOrdered By: Ivana Salcedo on 01-01-2025 Anion gap [Moles/Vol] Serum or plasma an ion gap determination High 6.0-15.0 [facility] Anion gap [Moles/Vol] 15.7 mmol/L High 6.0-15.0 [facility] Comment on above: Performed By: #### C RP, BMP, CBC, ESR #### [facility] [address] [place] [address] Sodium [Moles/volume] in Ser um or PlasmaOrdered By: Ivana Salcedo on 01-01-2025 Sodium [Moles/Vol] Sodium [Moles/volume ] in Serum or Plasma 136-145 [facility] Sodium [Moles/Vol] 137 mmol/L Normal 136-145 [facility] Comment on above: Performed By: #### C RP, BMP, CBC, ESR #### [facility] [address] Troponin I High Sensitivityo n 01-01-2025 Troponin I High Sensitivity 12 Normal 0-20 [facility] Comment on above: Result Comment: The Troponin units of report have been changed to meet the Chest Pain Accreditation requirement, element EC5.M1l2. Troponin units are changed from pg/ml to ng/L. Also, the decimal is removed and results are in whole numbers. PERFORMED BY: [place] [address] PATHOLOGIST STEEL FABRICATOR KIM ELLIOTT M.D. Performed By: #### C RP, BMP, CBC, ESR #### [facility] [address] Troponin I.cardiac [Mass/vol ume] in Serum or Plasma by Detection limit <= 0.01 ng/Ordered By: Ivana Salcedo on 01-01-2025 Troponin I.cardiac DL <= 0.01 ng/mL [Mass/Vol] Troponin I.cardiac [Mass/volume] in Serum or Plasma by Detection limit <= 0.01 ng/ 0-20 [facility] Comment on above: The Troponin units o [...] DL <= 0.01 ng/mL [Mass/Vol] 12 ng/L 0-20 [facility] Comment on above: The Troponin units o f report have been changed to meet the Chest Pain Accreditation requirement, element EC5.M1l2. Troponin units are changed from pg/ml to ng/L. Also, the decimal is removed and results are in whole numbers. Urea nitrogen [Mass/volume] in Serum or PlasmaOrdered By: Ivana Salcedo on 01-01-2025 Urea nitrogen [Mass/Vol] Urea nitrogen [Mass/volume] in Serum or Plasma [facility] 03-30 [facility] Urea nitrogen [Mass/Vol] 69 mg/dL [facility] 03-30 [facility] Comment on above: Performed By: #### C RP, BMP, CBC, ESR #### [facility] [address] WBC Auto (Bld) [#/Vol]Ordere d By: Ivana Salcedo on 01-01-2025 WBC (Bld) [#/Vol] Leukocytes [#/volume ] in Blood by Automated count 4.1-10.5 [facility] BLOOD UREA NITROGENon 2024 Urea nitrogen [Mass/Vol] 58 mg/dL [facility] Comment on above: Performed By: #### 3 094-0 #### [facility] ([id number]) [address], [address] [place] [address] Urea nitrogen [Mass/Vol] 112 mg/dL [address] Comment on above: Performed By: #### 3 094-0 #### [facility] ([id number]) [address], [address] [place] [address] 36on 12-28-2024 36 Patients Nucynta was denied by Medicare. Patient calling to see what the next step is. 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 No meds taken. C/o 10/10 low back pain sharp. Had mri 2 weeks ago showing pinched nerves. Pleasant/cooperative . Pt with LAVF for HD on wed-wed-wed. Limb alert band placed Normal [facility] EDPROVon 12-27-2024 EDPROV History of Present Illness [...] foot and back. History provided by: Patient [place] Coma Scale Score: 15 History Past Medical History: Diagnosis Date Adrenal nodule left adrenal adenoma Anemia Anxiety Charcot foot due to diabetes mellitus ([facility]/HCC) Right, s/p reconstructive surgery Chronic sinusitis COVID-19 08/2023 Diabetic foot ulcers ([facility]/HCC) right Diabetic polyneuropathy ([facility]) Diabetic retinopathy ([facility]/HCC) ED (erectile dysfunction) ESRD (end stage renal disease) ([facility]) 11/23/2022 GERD (gastroesophageal reflux disease) Glaucoma History of tobacco use Hyperlipidemia Hypertension Hypogonadism in male Hypothyroidism Insomnia Neuropathy Obesity Osteomyelitis of ankle or foot, left, acute ([facility]) Pancreatitis x2 Past history of chewing tobacco use Peripheral artery disease Proteinuria Sleep apnea Type 2 diabetes mellitus ([facility]) Vitamin D deficiency Past Surgical History: Procedure [...] Triage Vitals Temp Heart Rate Resp BP 12/27/24 0204 12/27/24 0204 12/27/24 0201 12/27/24 0204 36.5 ???C (97.7 ???F) 73 16 163/71 SpO2 Temp src Heart Rate Source Patient Position 12/27/24 0204 -- 12/27/24 0201 12/27/24 020 97 % Monitor Sitting BP Location FiO2 (%) 12/27/24 020 -- Right arm Physical Exam Vitals and [...] help him. Attestion Tanvir Smith MD 12/27/24 6519 Normal [facility] Telephoneon 12-26-2024 Telephone [id number] Evans Forte 1970 M Date Provider Department Center 12/26/2024 [id number] AVILEZ PAIN Medical [facility]avi Family History Problem Relation [...] Sister Maternal Grandmother Daughter Father's Brother Alive [facility] 36on 12-22-2024 36 Contacted pt and lvm for patient. Patient has not had psych eval done yet and is scheduled for SCS trial on 01/02/25. [facility] Follow-Upon 12-21-2024 Follow-Up [id number] Evans Forte 1970 M Date Provider Department [...] Grandmother Daughter Father's Brother Alive Level of Service:28653 AL OFFICE/OUTPATIENT ESTABLISHED MOD MDM 30 MIN Reason for Visit and Comments: Follow-up [865645] - Neuropathic pain [facility] Office Visiton 12-21-2024 Follow-up visit [id number] Evans Forte 1970 M Date Provider Department Center 12/21/2024 HEAVENLY CUBA ONC DCC Family History Problem Relation Age [...] Grandmother Daughter Father's Brother Alive Level of Service:43506 AL OFFICE/OUTPATIENT ESTABLISHED MOD MDM 30 MIN Reason for Visit and Comments: Follow-up [278369] - 3 month follow up [facility] Orders Onlyon 12-21-2024 Orders Only [id number] Evans Forte 1970 M Date Provider Department Center 12/21/2024 CHONG [place] MP PAIN Medical [facility] Family History Problem Relation [...] Sister Maternal Grandmother Daughter Father's Brother Alive [facility] 36on 12-15-2024 36 TC contacted patient to follow up on status of work up. Patient states working with podiatry, no wounds at this time. Working with pain management doctor. Still working on dental clearance. Pt states still seeing ID for prior lymph node concerns. Pt has no additional concerns at this time. Melinda Hidalgo RN [facility] 36 Please let patient k now that I ordered valium for him to take prior to his MRI. Thank you [facility] 36 Order for oral Valiu m 10mg x1 to be taken prior to MRI placed today. Patient update. [facility] 36on 12-14-2024 36 LVM to call back to reschedule his NS appt TRS [facility] MR LUMBAR SPINE WO CONTRASTo n [...] which is only partially included in the [id number]. Correlate with physical exam findings. Consider ultrasound for further evaluation. Electronically signed: Chintan Villanueva MD. Not Vldtd Invalid Interpretation Code [facility] Telephoneon 12-12-2024 Telephone [id number] Evans Forte 1970 M Date Provider Department [facility] 12/12/2024 KELLY FRANCOIS PAIN Medical Pavi Family [...] Reason for Visit and Comments: MRI [Other] Normal [facility] 36on 12-05-2024 36 Pt contacted clinic to be seen sooner to discuss pain medication. At the moment there is not any sooner appointment. Patient is on the cancellation list and patient also educated to contact clinic as well to ask for cancellations. [facility] 36 Patient contacted clinic back and literary writer let patient know of Dr. Cooley's response. Patient states he has increased his dose a long time ago and it is not working. Patient states he will contact his PCP to receive pain medication until he has the procedure. [facility] [address] Cooley regarding athis and he would like patient to increase dose to 20mg nightly like discussed at visit. Receiving Supervisor called and left message for patient with new dosing instructions. Receiving Supervisor also stated that medication changes are not done over the phone and any further changes will need to be discussed at an office visit. [facility] 36on 12-04-2024 36 Patient contacted clinic and wanted to let you know that the medication is not working for his pain. Patient states he has been on it for two weeks. [facility] Telephoneon 12-04-2024 Telephone [id number] Evans Forte 1970 Maeve Palafox Provider Department Center 12/04/2024 JULIO SARKAR MP PAIN Medical [facility] Family History Problem Relation [...] Sister Maternal Grandmother Daughter Father's Brother Alive [facility] US venous duplex LE RTon venous duplex LE [facility] [place] [address] Ultrasound Report Signed Patient: Evans Forte MR#: [id number] : 1970 Acct:[id number] Age/Sex: 54 / M ADM Date: 11/27/24 Loc: ER Room: Type: [facility] ER Attending Dr: Ordering Provider: Venkat [...] Ramirez Jean M.D.11/28/2024 3:29 PM Dictation Location: [place] [address] Tech: Olamide Munoz Transcribed By: CATHLEEN 11/28/24 1529 Dictated By: Ramirez Jean MD 11/28/24 1528 Signed By: 11/28/24 1529 Normal [facility] Basic Metabolic Panelon 11-05 Anion gap [Moles/Vol] 17.2 mmol/L High 6.0-15.0 [facility] Comment on above: Performed By: #### C RP, BMP, CBC, ESR #### [facility] [address] [place] [address] [place] Calcium [Mass/Vol] 9.1 mg/dL Normal 8.6-10.3 [facility] Comment on above: Performed By: #### C RP, BMP, CBC, ESR #### [facility] [address] [place] [address] [place] Chloride [Moles/Vol] 93 mmol/L Low 98-107 [facility] Comment on above: Performed By: #### C RP, BMP, CBC, ESR #### [facility] [address] [place] [address] [place] CO2 [Moles/Vol] 24.7 mmol/L Normal 21.0-31.0 [facility] Comment on above: Performed By: #### C RP, BMP, CBC, ESR #### [facility] [address] Creatinine [Mass/Vol] 6.56 mg/dL High 0.70-1.30 [facility] Comment on above: Performed By: #### C RP, BMP, CBC, ESR #### [facility] [address] Creatinine Clr Calc Pharmacy 19.67 Normal [facility] Comment on above: Performed By: #### C RP, BMP, CBC, ESR #### [facility] [address] Estimated GFR 9.418 mL/Min Normal [facility] Comment on above: Performed By: #### C RP, BMP, CBC, ESR #### [address] Glucose [Mass/Vol] 199 mg/dL High 70-100 [facility] Comment on above: Result Comment: [facility] Glucose Reference Range is dependent on time and content of last meal. Glucose of more than 200 mg/dL in a nonstressed, ambulatory subject supports the diagnosis of Diabetes Mellitus. ADA recommended reference range Performed By: #### C RP, BMP, CBC, ESR #### [address] Potassium [Moles/Vol] 3.9 mmol/L Normal 3.5-5.1 [facility] Comment on above: Performed By: #### C RP, BMP, CBC, ESR #### [facility] [address] [place] [address] [place] Sodium [Moles/Vol] 131 mmol/L Low 136-145 [facility] Comment on above: Performed By: #### C RP, BMP, CBC, ESR #### [address] Urea nitrogen [Mass/Vol] 47 mg/dL High 7-25 [facility] Comment on above: Performed By: #### C RP, BMP, CBC, ESR #### [facility] [address] [place] [id number] [facility] Basophils Auto (Bld) [#/Vol] Ordered By: Venkat Burgos on 11-27-2024 Basophils (Bld) [#/Vol] Automated basophil count 0.0-0.2 [facility] Basophils/100 WBC Auto (Bld) Ordered By: Venkat Burgos on 11-27-2024 Basophils/100 WBC (Bld) Automated basophil % . [facility] C reactive protein [Mass/vol ume] in Serum or PlasmaOrdered By: Venkat Burgos on 11-27-2024 CRP [Mass/Vol] C reactive protein [Mass/volume] in Serum or Plasma High 0.0-0.5 [facility] C-Reactive Proteinon 025 C-Reactive Protein 2.8 mg/dL High 0.0-0.5 [facility] Comment on above: Result Comment: PERF ORMED BY: [place] [address] PATHOLOGIST STEEL FABRICATOR KIM ELLIOTT M.D. Performed By: #### C RP, BMP, CBC, ESR #### [facility] [address] [place], [place] [id number] [facility] Calcium [Mass/volume] in Ser um or PlasmaOrdered By: Venkat Burgos on 11-27-2024 Calcium [Mass/Vol] Calcium [Mass/volume ] in Serum or Plasma 8.6-10.3 [facility] Carbon dioxide, total [Moles /volume] in Serum or PlasmaOrdered By: Venkat Burgos on 11-27-2024 CO2 [Moles/Vol] Carbon dioxide, tota l [Moles/volume] in Serum or Plasma 21.0-31.0 [facility] Chloride [Moles/volume] in S james or PlasmaOrdered By: Venkat Burgos on 11-27-2024 Chloride [Moles/Vol] Chloride [Moles/vol ume] in Serum or Plasma Low 98-107 [facility] Complete Blood Count Auto Di ffon 11-27-2024 Basophils (Bld) [#/Vol] 0.1 10*3/uL Normal 0.0-0.2 [facility] Comment on above: Performed By: #### C RP, BMP, CBC, ESR #### [address] Basophils/100 WBC (Bld) 1.0 % Normal . [facility] Comment on above: Performed By: #### C RP, BMP, CBC, ESR #### [address] Eosinophils (Bld) [#/Vol] 0.6 10*3/uL High 0.0-0.45 [facility] Comment on above: Performed By: #### C RP, BMP, CBC, ESR #### [address] Eosinophils/100 WBC (Bld) 6.0 % Normal . [facility] Comment on above: Performed By: #### C RP, BMP, CBC, ESR #### [address] Erythrocyte distribution width (RBC) [Ratio] 15.0 % High 12.0-14.8 [facility] Comment on above: Performed By: #### C RP, BMP, CBC, ESR #### [address] Hematocrit (Bld) [Volume fraction] 35.6 % Low 38.8-50.0 [facility] Comment on above: Performed By: #### C RP, BMP, CBC, ESR #### [address] Hemoglobin (Bld) [Mass/Vol] 12.1 g/dL Low 13.0-17.0 [facility] Comment on above: Performed By: #### C RP, BMP, CBC, ESR #### [address] Lymphocytes (Bld) [#/Vol] 1.5 10*3/uL Normal 1.00-4.8 [facility] Comment on above: Performed By: #### C RP, BMP, CBC, ESR #### [place] [id number] [place] Lymphocytes/100 WBC (Bld) 14.1 % Normal . [facility] Comment on above: Performed By: #### C RP, BMP, CBC, ESR #### [address] MCH (RBC) [Entitic mass] 30.6 pg Normal 27.5-35.2 [facility] Comment on above: Performed By: #### C RP, BMP, CBC, ESR #### [address] MCV (RBC) [Entitic vol] 90.1 fL Normal 83.5-101 [facility] Comment on above: Performed By: #### C RP, BMP, CBC, ESR #### [address] Mean Corpuscular HGB Conc 33.9 g/dL Normal 32.5-35.6 [facility] Comment on above: Performed By: #### C RP, BMP, CBC, ESR #### [address] Monocytes (Bld) [#/Vol] 1.0 10*3/uL High 0.0-0.8 [facility] Comment on above: Performed By: #### C RP, BMP, CBC, ESR #### [address] Monocytes/100 WBC (Bld) 18.22 % Normal 0.00-20.00 [facility] Comment on above: Performed By: #### C RP, BMP, CBC, ESR #### [address] Monocytes/100 WBC (Bld) 9.3 % Normal . [facility] Comment on above: Performed By: #### C RP, BMP, CBC, ESR #### [address] Neutrophils (Bld) [#/Vol] 7.4 10*3/uL Normal 1.8-7.7 [facility] Comment on above: Performed By: #### C RP, BMP, CBC, ESR #### [address] Neutrophils/100 WBC (Bld) 69.6 % Normal . [facility] Comment on above: Performed By: #### C RP, BMP, CBC, ESR #### [address] NRBC% 0.0 /100{WBC} Normal 0-0.5 [facility] Comment on above: Performed By: #### C RP, BMP, CBC, ESR #### [address] Platelet mean volume (Bld) [Entitic vol] 7.0 fL Normal 6.6-10.1 [facility] Comment on above: Performed By: #### C RP, BMP, CBC, ESR #### [address] Platelets (Bld) [#/Vol] 400 10*3/uL Normal 150-450 [facility] Comment on above: Performed By: #### C RP, BMP, CBC, ESR #### [address] RBC (Bld) [#/Vol] 3.95 10*6/uL Normal 3.90-5.60 [facility] Comment on above: Performed By: #### C RP, BMP, CBC, ESR #### [address] WBC (Bld) [#/Vol] 10.6 10*3/uL High 4.1-10.5 [facility] Comment on above: Performed By: #### C RP, BMP, CBC, ESR #### [address] Creatinine [Mass/volume] in Serum or PlasmaOrdered By: Venkat Burgos on 11-27-2024 Creatinine [Mass/Vol] Creatinine [Mass/volume] in Serum or Plasma High 0.70-1.30 [facility] Eosinophils Auto (Bld) [#/Vo l]Ordered By: Venkat Burgos on 11-27-2024 Eosinophils (Bld) [#/Vol] Automated eosinophil count High 0.0-0.45 [facility] Eosinophils/100 WBC Auto (Bl d)Ordered By: Venkat Burgos on 11-27-2024 Eosinophils/100 WBC (Bld) Automated eosinophil % . [facility] Erythrocyte Sedimentation Ra darrel 11-27-2024 ESR (Bld) [Velocity] 122 mm/h High 0-19 [facility] Comment on above: Result Comment: PERF ORMED BY: [place] [address] PATHOLOGIST [employer]EL F[employer]RICATOR KIM ELLIOTT M.D. Performed By: #### C RP, BMP, CBC, ESR #### [address] Erythrocyte distribution wid th Auto (RBC) [Ratio]Ordered By: Venkat Burgos on 11-27-2024 Erythrocyte distribution width (RBC) [Ratio] Erythrocyte distribution width [Ratio] by Automated count High 12.0-14.8 [facility] Erythrocyte sedimentation ra te by Photometric methodOrdered By: Venkat Burgos on 11-27-2024 ESR Photometric method (Bld) [Velocity] Erythrocyte sedimentation rate by Photometric method High 0-19 [facility] Glucose [Mass/volume] in Ser um or PlasmaOrdered By: Venkat Burgos on 11-27-2024 Glucose [Mass/Vol] Glucose [Mass/volume ] in Serum or Plasma High 70-100 [facility] Comment on above: ADA recommended refe rence rangeRandom Glucose Reference Range is dependent on time and content of last meal. Glucose of more than 200 mg/dL in a nonstressed, ambulatory subject supports the diagnosis of Diabetes Mellitus. Hematocrit Auto (Bld) [Volum e fraction]Ordered By: Venkat Burgos on 11-27-2024 Hematocrit (Bld) [Volume fraction] Hematocrit [Volume Fraction] of Blood by Automated count Low 38.8-50.0 [facility] Hemoglobin [Mass/volume] in BloodOrdered By: Venkat Burgos on 11-27-2024 Hemoglobin (Bld) [Mass/Vol] Hemoglobin [Mass/volume] in Blood Low 13.0-17.0 [facility] Leukocytes [#/volume] correc scott for nucleated erythrocytes in Blood by Automated counOrdered By: Venkat Burgos on 11-27-2024 WBC corrected for nucl RBC Auto (Bld) [#/Vol] Leukocytes [#/volume] corrected for nucleated erythrocytes in Blood by Automated coun High 4.1-10.5 [facility] Lymphocytes Auto (Bld) [#/Vo l]Ordered By: Venkat Burgos on 11-27-2024 Lymphocytes (Bld) [#/Vol] Lymphocytes [#/volume] in Blood by Automated count 1.00-4.8 [facility] Lymphocytes/100 WBC Auto (Bl d)Ordered By: Venkat Burgos on 11-27-2024 Lymphocytes/100 WBC (Bld) Lymphocytes/100 leukocytes in Blood by Automated count . [facility] MCH Auto (RBC) [Entitic mass ]Ordered By: Venkat Burgos on 11-27-2024 MCH (RBC) [Entitic mass] MCH [Entitic mass] by Automated count 27.5-35.2 [facility] MCHC Auto (RBC) [Mass/Vol]Or dered By: Venkat Burgos on 11-27-2024 MCHC (RBC) [Mass/Vol] MCHC [Mass/volume] by Automated count 32.5-35.6 [facility] MCV Auto (RBC) [Entitic vol] Ordered By: Venkat Burgos on 11-27-2024 MCV (RBC) [Entitic vol] MCV [Entitic volume] by Automated count 83.5-101 [facility] Monocyte distribution width [Entitic volume] in Blood by AutomatedOrdered By: Venkat Burgos on 11-27-2024 Monocyte distribution width Auto (Bld) [Entitic vol] Monocyte distribution width [Entitic volume] in Blood by Automated 0.00-20.00 [facility] Monocytes Auto (Bld) [#/Vol] Ordered By: Venkat Burgos on 11-27-2024 Monocytes (Bld) [#/Vol] Automated blood monocyte count High 0.0-0.8 [facility] Monocytes/100 WBC Auto (Bld) Ordered By: Venkat Burgos on 11-27-2024 Monocytes/100 WBC (Bld) Automated monocyte % . [facility] Neutrophils Auto (Bld) [#/Vo l]Ordered By: Venkat Burgos on 11-27-2024 Neutrophils (Bld) [#/Vol] Neutrophils [#/volume] in Blood by Automated count 1.8-7.7 [facility] Neutrophils/100 WBC Auto (Bl d)Ordered By: Venkat Burgos on 11-27-2024 Neutrophils/100 WBC (Bld) Automated neutrophil % . [facility] No Panel InformationOrdered By: Venkat Burgos on 11-27-2024 Estimated GFR (CKD-EPI) 9.418 mL/Min [facility] Creatinine Clearance (Chem 19.67 [facility] Nucleated erythrocytes [Pres ence] in Blood by Automated countOrdered By: Venkat Burgos on 11-27-2024 Nucleated RBC Auto Ql (Bld) Nucleated erythrocytes [Presence] in Blood by Automated count 0-0.5 [facility] Platelet mean volume Auto (B ld) [Entitic vol]Ordered By: Venkat Burgos on 11-27-2024 Platelet mean volume (Bld) [Entitic vol] Platelet mean volume [Entitic volume] in Blood by Automated count 6.6-10.1 [facility] Platelets Auto (Bld) [#/Vol] Ordered By: Venkat Burgos on 11-27-2024 Platelets (Bld) [#/Vol] Platelets [#/volume] in Blood by Automated count 150-450 [facility] Potassium [Moles/volume] in Serum or PlasmaOrdered By: Venkat Burgos on 11-27-2024 Potassium [Moles/Vol] Potassium [Moles/volume] in Serum or Plasma 3.5-5.1 [facility] RBC Auto (Bld) [#/Vol]Ordere d By: Vnekat Burgos on 11-27-2024 RBC (Bld) [#/Vol] Erythrocytes [#/volu me] in Blood by Automated count 3.90-5.60 [facility] Serum or plasma anion gap de terminationOrdered By: Venkat Burgos on 11-27-2024 Anion gap [Moles/Vol] Serum or plasma an ion gap determination High 6.0-15.0 [facility] Sodium [Moles/volume] in Ser um or PlasmaOrdered By: Venkat Burgos on 11-27-2024 Sodium [Moles/Vol] Sodium [Moles/volume ] in Serum or Plasma Low 136-145 [facility] Urea nitrogen [Mass/volume] in Serum or PlasmaOrdered By: Venkat Burgos on 11-27-2024 Urea nitrogen [Mass/Vol] Urea nitrogen [Mass/volume] in Serum or Plasma High 7-25 [facility] WBC Auto (Bld) [#/Vol]Ordere d By: Venkat Burgos on 11-27-2024 WBC (Bld) [#/Vol] Leukocytes [#/volume ] in Blood by Automated count High 4.1-10.5 [facility] Office Visiton 11-23-2024 Follow-up visit [id number] Evans Forte 1970 M Date Provider Department Center 11/23/2024 CHONG WARR[facility] Medical Pavi Family History Problem Relation [...] Grandmother Daughter Father's Brother Alive Level of Service:46095 [place] OFFICE/OUTPATIENT NEW MODERATE MDM 45 MINUTES (GC) Reason for Visit and Comments: New Patient [632] - Neuropathy Normal [facility] Telemedicineon 11-07-2024 Telemedicine [id number] Evans Forte 1970 M Provider Department Center 11/07/2024 FAUSTINO GUZMÁN [facility] INF [facility] Family History Problem Relation [...] Grandmother Daughter Father's Brother Alive Level of Service:50161 [place] OFFICE/OUTPATIENT ESTABLISHED SF MDM 10 MIN (95) Normal [facility] Follow-Upon 10-31-2024 Follow-Up [id number] Evans Forte 1970 M Date Provider Department Center 10/31/2024 YinkaJOY WATERS HVC WOUND [facility] Family History [...] Grandmother Daughter Father's Brother Alive Level of Service:10890 AL OFFICE/OUTPATIENT ESTABLISHED MOD MDM 30 MIN Normal [facility] Alanine aminotransferase [En zymatic activity/volume] in Serum or PlasmaOrdered By: Will Cerna on 10-29-2024 ALT [Catalytic activity/Vol] Alanine aminotransferase [Enzymatic activity/volume] in Serum or Plasma 7-52 [facility] Albumin [Mass/volume] in Ser um or Plasma by Bromocresol green (BCG) dye binding methoOrdered By: Will Cerna on 10-29-2024 Albumin BCG dye [Mass/Vol] Albumin [Mass/volume] in Serum or Plasma by Bromocresol green (BCG) dye binding metho 3.5-5.7 [facility] Alkaline phosphatase [Enzyma tic activity/volume] in Serum or PlasmaOrdered By: Will Cerna on 10-29-2024 ALP [Catalytic activity/Vol] Alkaline phosphatase [Enzymatic activity/volume] in Serum or Plasma 34-104 [facility] Aspartate aminotransferase [ Enzymatic activity/volume] in Serum or PlasmaOrdered By: Will Cerna on 10-29-2024 AST [Catalytic activity/Vol] Aspartate aminotransferase [Enzymatic activity/volume] in Serum or Plasma Low 13-39 [facility] Basophils Auto (Bld) [#/Vol] Ordered By: Will Cerna on 10-29-2024 Basophils (Bld) [#/Vol] Automated basophil count 0.0-0.2 [facility] Basophils/100 WBC Auto (Bld) Ordered By: Will Cerna on 10-29-2024 Basophils/100 WBC (Bld) Automated basophil % . [facility] Bilirubin.total [Mass/volume ] in Serum or PlasmaOrdered By: Will Cerna on 10-29-2024 Bilirubin [Mass/Vol] Bilirubin.total [Mass/volume] in Serum or Plasma 0.3-1.0 [facility] Blood Cultureon 10-29-2024 Bacteria identified Cx Nom (Bld) NO GROWTH 5 DAYS PERFORMED BY: [place] [address] PATHOLOGIST STEEL FABRICATOR KIM ELLIOTT M.D. Normal [facility] Comment on above: Performed By: #### C RP, BMP, CBC, ESR #### [facility] [address] [place] [address] Bacteria identified Cx Nom (Bld) NO GROWTH 5 DAYS PERFORMED BY: [place] [address] PATHOLOGIST STEEL FABRICATOR KIM ELLIOTT M.D. Normal [facility] Comment on above: Performed By: #### C RP, BMP, CBC, ESR #### [facility] [address] [place] [address] [place] C reactive protein [Mass/vol ume] in Serum or PlasmaOrdered By: Will Cerna on 10-29-2024 CRP [Mass/Vol] C reactive protein [Mass/volume] in Serum or Plasma High 0.0-0.5 [facility] C-Reactive Proteinon 025 C-Reactive Protein 1.5 mg/dL High 0.0-0.5 [facility] Comment on above: Result Comment: PERF ORMED BY: [place] [address] PATHOLOGIST STEEL FABRICATOR KIM ELLIOTT M.D. Performed By: #### C RP, CMP, CBC, ESR, LACTIC #### [facility] [address] [place] [address] [place] Calcium [Mass/volume] in Ser um or PlasmaOrdered By: Will Cerna on 10-29-2024 Calcium [Mass/Vol] Calcium [Mass/volume ] in Serum or Plasma 8.6-10.3 [facility] Carbon dioxide, total [Moles /volume] in Serum or PlasmaOrdered By: Will Cerna on 10-29-2024 CO2 [Moles/Vol] Carbon dioxide, tota l [Moles/volume] in Serum or Plasma 21.0-31.0 [facility] Chloride [Moles/volume] in S james or PlasmaOrdered By: Will Cerna on 10-29-2024 Chloride [Moles/Vol] Chloride [Moles/vol ume] in Serum or Plasma 98-107 [facility] Complete Blood Count Auto Di ffon 10-29-2024 Basophils (Bld) [#/Vol] 0.1 10*3/uL Normal 0.0-0.2 [facility] Comment on above: Performed By: #### C RP, CMP, CBC, ESR, LACTIC #### [address] Basophils/100 WBC (Bld) 1.1 % Normal . [facility] Comment on above: Performed By: #### C RP, CMP, CBC, ESR, LACTIC #### [address] Eosinophils (Bld) [#/Vol] 0.3 10*3/uL Normal 0.0-0.45 [facility] Comment on above: Performed By: #### C RP, CMP, CBC, ESR, LACTIC #### [place] [address] [place] Eosinophils/100 WBC (Bld) 3.4 % Normal . [facility] Comment on above: Performed By: #### C RP, CMP, CBC, ESR, LACTIC #### [address] Erythrocyte distribution width (RBC) [Ratio] 14.3 % Normal 12.0-14.8 [facility] Comment on above: Performed By: #### C RP, CMP, CBC, ESR, LACTIC #### [place] [address] [place] Hematocrit (Bld) [Volume fraction] 35.5 % Low 38.8-50.0 [facility] Comment on above: Performed By: #### C RP, CMP, CBC, ESR, LACTIC #### [address] Hemoglobin (Bld) [Mass/Vol] 12.1 g/dL Low 13.0-17.0 [facility] Comment on above: Performed By: #### C RP, CMP, CBC, ESR, LACTIC #### [address] Lymphocytes (Bld) [#/Vol] 1.4 10*3/uL Normal 1.00-4.8 [facility] Comment on above: Performed By: #### C RP, CMP, CBC, ESR, LACTIC #### [address] Lymphocytes/100 WBC (Bld) 14.2 % Normal . [facility] Comment on above: Performed By: #### C RP, CMP, CBC, ESR, LACTIC #### [address] MCH (RBC) [Entitic mass] 31.2 pg Normal 27.5-35.2 [facility] Comment on above: Performed By: #### C RP, CMP, CBC, ESR, LACTIC #### [address] MCV (RBC) [Entitic vol] 91.2 fL Normal 83.5-101 [facility] Comment on above: Performed By: #### C RP, CMP, CBC, ESR, LACTIC #### [address] Mean Corpuscular HGB Conc 34.2 g/dL Normal 32.5-35.6 [facility] Comment on above: Performed By: #### C RP, CMP, CBC, ESR, LACTIC #### [address] Monocytes (Bld) [#/Vol] 0.7 10*3/uL Normal 0.0-0.8 [facility] Comment on above: Performed By: #### C RP, CMP, CBC, ESR, LACTIC #### [address] Monocytes/100 WBC (Bld) 13.40 % Normal 0.00-20.00 [facility] Comment on above: Performed By: #### C RP, CMP, CBC, ESR, LACTIC #### [address] Monocytes/100 WBC (Bld) 6.8 % Normal . [facility] Comment on above: Performed By: #### C RP, CMP, CBC, ESR, LACTIC #### [address] Neutrophils (Bld) [#/Vol] 7.5 10*3/uL Normal 1.8-7.7 [facility] Comment on above: Performed By: #### C RP, CMP, CBC, ESR, LACTIC #### [address] Neutrophils/100 WBC (Bld) 74.5 % Normal . [facility] Comment on above: Performed By: #### C RP, CMP, CBC, ESR, LACTIC #### [address] NRBC% 0.0 /100{WBC} Normal 0-0.5 [facility] Comment on above: Performed By: #### C RP, CMP, CBC, ESR, LACTIC #### [address] Platelet mean volume (Bld) [Entitic vol] 6.7 fL Normal 6.6-10.1 [facility] Comment on above: Performed By: #### C RP, CMP, CBC, ESR, LACTIC #### [address] Platelets (Bld) [#/Vol] 368 10*3/uL Normal 150-450 [facility] Comment on above: Performed By: #### C RP, CMP, CBC, ESR, LACTIC #### [address] RBC (Bld) [#/Vol] 3.89 10*6/uL Low 3.90-5.60 [facility] Comment on above: Performed By: #### C RP, CMP, CBC, ESR, LACTIC #### [address] WBC (Bld) [#/Vol] 10.1 10*3/uL Normal 4.1-10.5 [facility] Comment on above: Performed By: #### C RP, CMP, CBC, ESR, LACTIC #### [address] Comprehensive Metabolic Pane nick 10-29-2024 Albumin [Mass/Vol] 4.3 g/dL Normal 3.5-5.7 [facility] Comment on above: Performed By: #### C RP, CMP, CBC, ESR, LACTIC #### [address] Albumin/Globulin [Mass ratio] 1.1 {ratio} Normal [facility] Comment on above: Performed By: #### C RP, CMP, CBC, ESR, LACTIC #### [address] ALP [Catalytic activity/Vol] 90 U/L Normal 34-104 [facility] Comment on above: Performed By: #### C RP, CMP, CBC, ESR, LACTIC #### [address] ALT [Catalytic activity/Vol] 11 U/L Normal 7-52 [facility] Comment on above: Performed By: #### C RP, CMP, CBC, ESR, LACTIC #### [address] Anion gap [Moles/Vol] 16.6 mmol/L High 6.0-15.0 [facility] Comment on above: Performed By: #### C RP, CMP, CBC, ESR, LACTIC #### [address] AST [Catalytic activity/Vol] 7 U/L Low 13-39 [facility] Comment on above: Performed By: #### C RP, CMP, CBC, ESR, LACTIC #### [address] Bilirubin [Mass/Vol] 0.4 mg/dL Normal 0.3-1.0 [facility] Comment on above: Performed By: #### C RP, CMP, CBC, ESR, LACTIC #### [address] Calcium [Mass/Vol] 9.4 mg/dL Normal 8.6-10.3 [facility] Comment on above: Performed By: #### C RP, CMP, CBC, ESR, LACTIC #### [address] Chloride [Moles/Vol] 100 mmol/L Normal 98-107 [facility] Comment on above: Performed By: #### C RP, CMP, CBC, ESR, LACTIC #### [address] CO2 [Moles/Vol] 25.8 mmol/L Normal 21.0-31.0 [facility] Comment on above: Performed By: #### C RP, CMP, CBC, ESR, LACTIC #### [address] Creatinine [Mass/Vol] 9.58 mg/dL High 0.70-1.30 [facility] Comment on above: Performed By: #### C RP, CMP, CBC, ESR, LACTIC #### [address] Creatinine Clr Calc Pharmacy 13.36 Normal [facility] Comment on above: Performed By: #### C RP, CMP, CBC, ESR, LACTIC #### [address] Estimated GFR 5.978 mL/Min Normal [facility] Comment on above: Performed By: #### C RP, CMP, CBC, ESR, LACTIC #### [address] Globulin (S) [Mass/Vol] 3.9 g/dL Normal [facility] Comment on above: Performed By: #### C RP, CMP, CBC, ESR, LACTIC #### [facility] [address] Glucose [Mass/Vol] 259 mg/dL High 70-100 [facility] Comment on above: Result Comment: [place] Glucose Reference Range is dependent on time and content of last meal. Glucose of more than 200 mg/dL in a nonstressed, ambulatory subject supports the diagnosis of Diabetes Mellitus. ADA recommended reference range Performed By: #### C RP, CMP, CBC, ESR, LACTIC #### [address] Potassium [Moles/Vol] 4.4 mmol/L Normal 3.5-5.1 [facility] Comment on above: Performed By: #### C RP, CMP, CBC, ESR, LACTIC #### [address] Protein [Mass/Vol] 8.2 g/dL Normal 6.4-8.9 [facility] Comment on above: Performed By: #### C RP, CMP, CBC, ESR, LACTIC #### [address] Sodium [Moles/Vol] 138 mmol/L Normal 136-145 [facility] Comment on above: Performed By: #### C RP, CMP, CBC, ESR, LACTIC #### [address] Urea nitrogen [Mass/Vol] 78 mg/dL High 7-25 [facility] Comment on above: Performed By: #### C RP, CMP, CBC, ESR, LACTIC #### [address] Creatinine [Mass/volume] in Serum or PlasmaOrdered By: Will Cerna on 10-29-2024 Creatinine [Mass/Vol] Creatinine [Mass/volume] in Serum or Plasma High 0.70-1.30 [facility] ECG 12 lead ECGon 10-29-2024 ECG 12 lead ECG [facility] [place] [address] [place] [id number] Electrocardiograph Report Signed Patient: Evans Forte MR#: [id number] : 1970 Acct:[id number] Age/Sex: 54 / M ADM Date: 10/29/24 Loc: Room: [address] [place] [address] Type: ADM IN Attending Dr: Maxime Magana [...] was found Confirmed by UDAY SALGADO DO ([id number]) on 10/30/2024 1:34:21 AM Referred By: Electronically Signed By: UDAY SALGADO DO Transcribed By: MUS Signed By Uday Salgado DO 10/30 0134 Normal [facility] Eosinophils Auto (Bld) [#/Vo l]Ordered By: Will Cerna on 10-29-2024 Eosinophils (Bld) [#/Vol] Automated eosinophil count 0.0-0.45 [facility] Eosinophils/100 WBC Auto (Bl d)Ordered By: Will Cerna on 10-29-2024 Eosinophils/100 WBC (Bld) Automated eosinophil % . [facility] Erythrocyte Sedimentation Ra darrel 10-29-2024 ESR (Bld) [Velocity] 74 mm/h High 0-19 [facility] Comment on above: Result Comment: PERF ORMED BY: [address] [address] PATHOLOGIST STEEL FABRICATOR KIM ELLIOTT M.D. Performed By: #### C RP, CMP, CBC, ESR, LACTIC #### [place] [id number] [facility] Erythrocyte distribution wid th Auto (RBC) [Ratio]Ordered By: Will Cerna on 10-29-2024 Erythrocyte distribution width (RBC) [Ratio] Erythrocyte distribution width [Ratio] by Automated count 12.0-14.8 [facility] Erythrocyte sedimentation ra te by Photometric methodOrdered By: Will Cerna on 10-29-2024 ESR Photometric method (Bld) [Velocity] Erythrocyte sedimentation rate by Photometric method High 0-19 [facility] Globulin Calc (S) [Mass/Vol] Ordered By: Will Cerna on 10-29-2024 Globulin (S) [Mass/Vol] Serum globulin measurement by calculation (mass/volume) [facility] Glucose Glucometer (BldC) [M ass/Vol]Ordered By: Maxime Magana on 10-29-2024 Glucose [Mass/Vol] Capillary blood gluc ose measurement by glucometer (mass/volume) [facility] Comment on above: Random Glucose Refer ence Range is dependent on time and content of last meal. Glucose of more than 200 mg/dL in a nonstressed, ambulatory subject supports the diagnosis of Diabetes Mellitus. Glucose Poct Glucometerson 0 10-29-2024 Glucose [Mass/Vol] 244 mg/dL Normal [facility] Comment on above: Result Comment: [place] om Glucose Reference Range is dependent on time and content of last meal. Glucose of more than 200 mg/dL in a nonstressed, ambulatory subject supports the diagnosis of Diabetes Mellitus. PERFORMED BY: [facility] [address] [facility] [address] PATHOLOGIST STEEL FABRICATOR KIM ELLIOTT M.D. Performed By: #### C RP, BMP, CBC, ESR #### [facility] [address] Glucose [Mass/volume] in Ser um or PlasmaOrdered By: Will Cerna on 10-29-2024 Glucose [Mass/Vol] Glucose [Mass/volume ] in Serum or Plasma High 70-100 [facility] Comment on above: ADA recommended refe rence rangeRandom Glucose Reference Range is dependent on time and content of last meal. Glucose of more than 200 mg/dL in a nonstressed, ambulatory subject supports the diagnosis of Diabetes Mellitus. Hematocrit Auto (Bld) [Volum e fraction]Ordered By: Will Cerna on 10-29-2024 Hematocrit (Bld) [Volume fraction] Hematocrit [Volume Fraction] of Blood by Automated count Low 38.8-50.0 [facility] Hemoglobin [Mass/volume] in BloodOrdered By: Will Cerna on 10-29-2024 Hemoglobin (Bld) [Mass/Vol] Hemoglobin [Mass/volume] in Blood Low 13.0-17.0 [facility] Laboratory - Microbiology an d Antimicrobial susceptibilityOrdered By: Will Cerna on 10-29-2024 Bacteria identified Cx Nom (Bld) NO GROWTH 5 DAYS [facility] Bacteria identified Cx Nom (Bld) NO GROWTH 5 DAYS [facility] Lactate [Moles/volume] in Se rum or PlasmaOrdered By: Will Cerna on 10-29-2024 Lactate [Moles/Vol] Lactate [Moles/volum e] in Serum or Plasma 0.5-1.9 [facility] Comment on above: Lactic Acid referenc e range has been updated to 0.5 1.9 mmol/L and the critical range of 2.0 or greater. Lactic Acidon 10-29-2024 Lactate [Moles/Vol] 1.0 mmol/L Normal 0.5-1.9 [facility] Comment on above: Result Comment: Lact ic Acid reference range has been updated to 0.5 ? 1.9 mmol/L and the critical range of 2.0 or greater. PERFORMED BY: [place] [address] PATHOLOGIST STEEL FABRICATOR KIM ELLIOTT M.D. Performed By: #### C RP, CMP, CBC, ESR, LACTIC #### [address] Leukocytes [#/volume] correc scott for nucleated erythrocytes in Blood by Automated counOrdered By: Will Cerna on 10-29-2024 WBC corrected for nucl RBC Auto (Bld) [#/Vol] Leukocytes [#/volume] corrected for nucleated erythrocytes in Blood by Automated coun 4.1-10.5 [facility] Lymphocytes Auto (Bld) [#/Vo l]Ordered By: Will Cerna on 10-29-2024 Lymphocytes (Bld) [#/Vol] Lymphocytes [#/volume] in Blood by Automated count 1.00-4.8 [facility] Lymphocytes/100 WBC Auto (Bl d)Ordered By: Will Cerna on 10-29-2024 Lymphocytes/100 WBC (Bld) Lymphocytes/100 leukocytes in Blood by Automated count . [facility] MCH Auto (RBC) [Entitic mass ]Ordered By: Will Cerna on 10-29-2024 MCH (RBC) [Entitic mass] MCH [Entitic mass] by Automated count 27.5-35.2 [facility] MCHC Auto (RBC) [Mass/Vol]Or dered By: Will Cerna on 10-29-2024 MCHC (RBC) [Mass/Vol] MCHC [Mass/volume] by Automated count 32.5-35.6 [facility] MCV Auto (RBC) [Entitic vol] Ordered By: Will Cerna on 10-29-2024 MCV (RBC) [Entitic vol] MCV [Entitic volume] by Automated count 83.5-101 [facility] Monocyte distribution width [Entitic volume] in Blood by AutomatedOrdered By: Will Cerna on 10-29-2024 Monocyte distribution width Auto (Bld) [Entitic vol] Monocyte distribution width [Entitic volume] in Blood by Automated 0.00-20.00 [facility] Monocytes Auto (Bld) [#/Vol] Ordered By: Will Cerna on 10-29-2024 Monocytes (Bld) [#/Vol] Automated blood monocyte count 0.0-0.8 [facility] Monocytes/100 WBC Auto (Bld) Ordered By: Will Cerna on 10-29-2024 Monocytes/100 WBC (Bld) Automated monocyte % . [facility] Neutrophils Auto (Bld) [#/Vo l]Ordered By: Will Cerna on 10-29-2024 Neutrophils (Bld) [#/Vol] Neutrophils [#/volume] in Blood by Automated count 1.8-7.7 [facility] Neutrophils/100 WBC Auto (Bl d)Ordered By: Will Cerna on 02-23-2025 Neutrophils/100 WBC (Bld) Automated neutrophil % . [facility] No Panel InformationOrdered By: Will Cerna on 10-29-2024 Estimated GFR (CKD-EPI) 5.978 mL/Min [facility] Pharmacy Creatinine Clearance (Chem 13.36 [facility] Nucleated erythrocytes [Pres ence] in Blood by Automated countOrdered By: Will Cerna on 10-29-2024 Nucleated RBC Auto Ql (Bld) Nucleated erythrocytes [Presence] in Blood by Automated count 0-0.5 [facility] Platelet mean volume Auto (B ld) [Entitic vol]Ordered By: Will Cerna on 10-29-2024 Platelet mean volume (Bld) [Entitic vol] Platelet mean volume [Entitic volume] in Blood by Automated count 6.6-10.1 [facility] Platelets Auto (Bld) [#/Vol] Ordered By: Will Cerna on 10-29-2024 Platelets (Bld) [#/Vol] Platelets [#/volume] in Blood by Automated count 150-450 [facility] Potassium [Moles/volume] in Serum or PlasmaOrdered By: Will Cerna on 10-29-2024 Potassium [Moles/Vol] Potassium [Moles/volume] in Serum or Plasma 3.5-5.1 [facility] Protein [Mass/volume] in Ser um or PlasmaOrdered By: Will Cerna on 10-29-2024 Protein [Mass/Vol] Protein [Mass/volume ] in Serum or Plasma 6.4-8.9 [facility] RBC Auto (Bld) [#/Vol]Ordere d By: Will Cerna on 10-29-2024 RBC (Bld) [#/Vol] Erythrocytes [#/volu me] in Blood by Automated count Low 3.90-5.60 [facility] Serum or plasma albumin/glob ulin mass ratioOrdered By: Will Cerna on 10-29-2024 Albumin/Globulin [Mass ratio] Serum or plasma albumin/globulin mass ratio [facility] Serum or plasma anion gap de terminationOrdered By: Will Cerna on 10-29-2024 Anion gap [Moles/Vol] Serum or plasma an ion gap determination High 6.0-15.0 [facility] Sodium [Moles/volume] in Ser um or PlasmaOrdered By: Will Cerna on 10-29-2024 Sodium [Moles/Vol] Sodium [Moles/volume ] in Serum or Plasma 136-145 [facility] Urea nitrogen [Mass/volume] in Serum or PlasmaOrdered By: Will Cerna on 10-29-2024 Urea nitrogen [Mass/Vol] Urea nitrogen [Mass/volume] in Serum or Plasma High 7-25 [facility] WBC Auto (Bld) [#/Vol]Ordere d By: Will Cerna on 10-29-2024 WBC (Bld) [#/Vol] Leukocytes [#/volume ] in Blood by Automated count 4.1-10.5 [facility] X-ray reportOrdered By: Rony Saeed on 10-29-2024 Study report [facility] [place] [address] XRay Report Signed Patient: Evans Forte MR#: [id number] : 1970 Acct:[id number] Age/Sex: 54 / M ADM Date: 5 Loc: ER Room: Type: [facility] ER Attending Dr: Copies to: [...] Derrick Saeed M.D.10/29/2024 6:14 PM Dictation Location: [place] [address] Transcribed By: [facility] 10/29/241813 Dictated By: Derrick Saeed MD 10/29/241810 Signed By: 10/29/241813 [facility] Work Phone: XR foot RT min 3V*on 025 XR foot RT min 3V* [facility] Main [place] [address] [place] [address] XRay Report Signed Patient: Evans Forte MR#: [id number] : 1970 Acct:[id number] Age/Sex: 54 / M ADM Date: 10/29/24 Loc: ER Room: Type: [facility] ER Attending Dr: Copies to: [...] Derrick Saeed M.D.10/29/2024 6:14 PM Dictation Location: [place] [address] Transcribed By: [facility] 10/29/241813 Dictated By: Derrick Saeed MD 10/29/241810 Signed By: 10/29/241813 Normal [facility] 29on 10-17-2024 29 Addended by: MARI HARE on: 10/24/2024 03:37 PM Modules accepted: Orders Normal [facility] BARTONELLA HENSELAE ANTIBODY PANELon 10-17-2024 BARTONELLA HENSELAE IGG <1:64 Normal [facility] Comment on above: Result Comment: INTE RPRETIVE [...] developed and its performance characteristics determined by [employer]. It has not been cleared or approved by the [place] Food and Drug Administration. This test was performed in a CLIA certified laboratory and is intended for clinical purposes. Performed By: #### L [id number] ####[facility]IN [facility] [place] [address] BARTONELLA HENSELAE IGM < 1:16 Normal [facility] Comment on above: Result Comment: INTE RPRETIVE [...] developed and its performance characteristics determined by [employer]. It has not been cleared or approved by the [place] Food and Drug Administration. This test was performed in a CLIA certified laboratory and is intended for clinical purposes. Performed By: [facility] [address] [place] [address] [employer] Worker: Aristeo Salgado MD, PhD CLIA Number: [id number] Performed By: #### L [id number] ####[facility] [employer])[address] [place] [address] CHLAMYDIA TRACHOMATIS AND NE ISSERIA GONORRHEA, TMAon 10-17-2024 CHLAMYDIA TRACHOMATIS DNA PROBE (PRESENCE) IN UNSP SPEC Negative Normal Negative [facility] Comment on above: Result Comment: No C hlamydia trachomatis rRNA Detected. The Aptima Combo 2 Assay is a FDA approved target amplification nucleic acid probe test that utilizes target capture for the in vitro qualitative detection and differentiation of ribosomal RNA (rRNA) from Chlamydia trachomatis (CT) and/or Neisseria gonorrhoeae (GC) to aid the diagnosis of chlamydial and/or gonococcal urogenital disease using the [place] System. The Aptima Combo 2 Assay involves target capture, target amplification by Agency Sales Representative-Mediated Amplification (TMA), and the detection of the amplification products (amplicon) by the Hybridization Protection Assay (HPA). The internal process controls of the [place] System monitor the target capture, amplification, and detection steps of the assay, this is not intended to control for sampling adequacy. Performed By: #### L [id number] ####[facility] ([facility])[address] [place] [address] NEISSERIA GONORRHOEAE DNA PROBE (PRESENCE) IN UNSP SPEC Negative Normal Negative [facility] Comment on above: Result Comment: No N eisseria gonorrhoeae rRNA Detected. The Aptima Combo 2 Assay is a FDA approved target amplification nucleic acid probe test that utilizes target capture for the in vitro qualitative detection and differentiation of ribosomal RNA (rRNA) from Chlamydia trachomatis (CT) and/or Neisseria gonorrhoeae (GC) to aid the diagnosis of chlamydial and/or gonococcal urogenital disease using the [place] System. The Aptima Combo 2 Assay involves target capture, target amplification by Agency Sales Representative-Mediated Amplification (TMA), and the detection of the amplification products (amplicon) by the Hybridization Protection Assay (HPA). The internal process controls of the [place] System monitor the target capture, amplification, and detection steps of the assay, this is not intended to control for sampling adequacy. Performed By: #### L [id number] ####[facility] ([facility])[address] [place] [address] HISTOPLASMA ANTIGEN, URINEon 10-17-2024 HISTOPLASMA ANTIGEN URINE INTERP Not detected Normal Not Detected [facility] Comment on above: Result Comment: INTE RPRETIVE [...] developed and its performance characteristics determined by [employer]. It has not been cleared or approved by the U.S. Food and Drug Administration. This test was performed in a CLIA-certified laboratory and is intended for clinical purposes. Performed By: [facility] [address] [place] [address] [employer] Worker: Aristeo Salgado MD, PhD CLIA Number: [id number] Performed By: #### L [id number] #### [facility] [address] [place] [address] HISTOPLASMA ANTIGEN URINE QUANT Not detected Normal [facility] Comment on above: Performed By: #### L [id number] #### [facility] [address] [place] [address] HIV COMBO 4Gon 10-17-2024 HIV COMBO 4G Negative Normal Negative [facility] Comment on above: Performed By: #### L [id number] #### [facility] [address] [place] [address] Office Visiton 10-17-2024 Follow-up visit [id number] Evans Forte 1970 M Date Provider Department Center 10/17/2024 Uriel-JOY WATERS HVSmith[facility] WOUND [facility] Family History Problem Relation [...] Grandmother Daughter Father's Brother Alive Level of Service:06007 AL OFFICE/OUTPATIENT NEW MODERATE MDM 45 MINUTES Normal [facility] Follow-up visit [id number] Evans Forte 1970 M Date Provider Department Center 10/17/2024 FAUSTINO GUZMÁN [facility] Problem Relation Age of [...] Grandmother Daughter Father's Brother Alive Level of Service:48826 AL OFFICE/OUTPATIENT ESTABLISHED LOW MDM 20 MIN Normal [facility] Orders Onlyon 10-17-2024 Orders Only [id number] Evans Forte 1970 M Date Provider Department Center 10/17/2024 MARIE LOZA [facility] Family History Problem Relation Age of [...] Maternal Grandmother Daughter Father's Brother Alive Normal [facility] RPRon 10-17-2024 REAGIN AB PRESENCE IN SERUM BY RPR Non-Reactive Normal Nonreactive [facility] Comment on above: Performed By: #### L [id number] ####[facility] ([facility])[address] [place] [address] Provider Orderson 09-25-2024 Provider Orders [id number] [facility] 09-14-2024 Orders Only [id number] Evans Forte 1970 M Date Provider Department Center 09/14/2024 FAUSTINO GUZMÁN [facility] Family History Problem Relation [...] Maternal Grandmother Daughter Father's Brother Alive Normal [facility] Office Visiton 09-05-2024 Follow-up visit [id number] Evans Forte 1970 M Date Provider Department Center 09/05/2024 ERICK MATOS [facility] SURG [place] Family History Problem Relation [...] Grandmother Daughter Father's Brother Alive Level of Service:18464 AL OFFICE/OUTPATIENT ESTABLISHED MDM 10 MIN Reason for Visit and Comments: Post-op [483] - Evans is here today for post op visit: enlarged lymph node, s/p 08/22/24 excisional lymph node biopsy Normal [facility] Basic Metabolic Panelon 12-2 Anion gap [Moles/Vol] 19.7 mmol/L High 6.0-15.0 [facility] Comment on above: Performed By: #### C RP, BMP, CBC, ESR #### [facility] [address] [place] [address] [place] Calcium [Mass/Vol] 9.6 mg/dL Normal 8.6-10.3 [facility] Comment on above: Performed By: #### C RP, BMP, CBC, ESR #### [facility] [address] [place] [id number] [place] Chloride [Moles/Vol] 98 mmol/L Normal 98-107 [facility] Comment on above: Performed By: #### C RP, BMP, CBC, ESR #### [address] CO2 [Moles/Vol] 26.6 mmol/L Normal 21.0-31.0 [facility] Comment on above: Performed By: #### C RP, BMP, CBC, ESR #### [address] Creatinine [Mass/Vol] 5.94 mg/dL High 0.70-1.30 [facility] Comment on above: Performed By: #### C RP, BMP, CBC, ESR #### [address] Creatinine Clr Calc Pharmacy 21.80 Normal [facility] Comment on above: Result Comment: PERF ORMED BY: [place] [address] PATHOLOGIST STEEL FABRICATOR KIM ELLIOTT M.D. Performed By: #### C RP, BMP, CBC, ESR #### [address] Estimated GFR 10.609 mL/Min Normal [facility] Comment on above: Performed By: #### C RP, BMP, CBC, ESR #### [address] Glucose [Mass/Vol] 135 mg/dL High 70-100 [facility] Comment on above: Result Comment: [place] Glucose Reference Range is dependent on time and content of last meal. Glucose of more than 200 mg/dL in a nonstressed, ambulatory subject supports the diagnosis of Diabetes Mellitus. ADA recommended reference range Performed By: #### C RP, BMP, CBC, ESR #### [address] Potassium [Moles/Vol] 4.3 mmol/L Normal 3.5-5.1 [facility] Comment on above: Performed By: #### C RP, BMP, CBC, ESR #### [address] Sodium [Moles/Vol] 140 mmol/L Normal 136-145 [facility] Comment on above: Performed By: #### C RP, BMP, CBC, ESR #### [facility] [address] Urea nitrogen [Mass/Vol] 54 mg/dL High 7-25 [facility] Comment on above: Performed By: #### C RP, BMP, CBC, ESR #### [facility] [address] [place] [address] [place] Basophils Auto (Bld) [#/Vol] Ordered By: Delano Mondragon on 08-29-2024 Basophils (Bld) [#/Vol] Automated basophil count 0.0-0.2 [facility] Basophils/100 WBC Auto (Bld) Ordered By: Delano Mondragon on 08-29-2024 Basophils/100 WBC (Bld) Automated basophil % . [facility] Calcium [Mass/volume] in Ser um or PlasmaOrdered By: Delano Mondragon on 08-29-2024 Calcium [Mass/Vol] Calcium [Mass/volume ] in Serum or Plasma 8.6-10.3 [facility] Carbon dioxide, total [Moles /volume] in Serum or PlasmaOrdered By: Delano Mondragon on 08-29-2024 CO2 [Moles/Vol] Carbon dioxide, tota l [Moles/volume] in Serum or Plasma 21.0-31.0 [facility] Chloride [Moles/volume] in S james or PlasmaOrdered By: Delano Mondragon on 08-29-2024 Chloride [Moles/Vol] Chloride [Moles/vol ume] in Serum or Plasma 98-107 [facility] Complete Blood Count Auto Di ffon 08-29-2024 Basophils (Bld) [#/Vol] 0.0 10*3/uL Normal 0.0-0.2 [facility] Comment on above: Result Comment: PERF ORMED BY: [place] [address] PATHOLOGIST STEEL FABRICATOR KIM ELLIOTT M.D. Performed By: #### P T, BMP, CBC, PTT #### [facility] [address] Basophils/100 WBC (Bld) 0.3 % Normal . [facility] Comment on above: Performed By: #### P T, BMP, CBC, PTT #### [address] Eosinophils (Bld) [#/Vol] 0.5 10*3/uL High 0.0-0.45 [facility] Comment on above: Performed By: #### P T, BMP, CBC, PTT #### [address] Eosinophils/100 WBC (Bld) 5.2 % Normal . [facility] Comment on above: Performed By: #### P T, BMP, CBC, PTT #### [address] Erythrocyte distribution width (RBC) [Ratio] 15.2 % High 12.0-14.8 [facility] Comment on above: Performed By: #### P T, BMP, CBC, PTT #### [address] Hematocrit (Bld) [Volume fraction] 36.0 % Low 38.8-50.0 [facility] Comment on above: Performed By: #### P T, BMP, CBC, PTT #### [address] Hemoglobin (Bld) [Mass/Vol] 12.0 g/dL Low 13.0-17.0 [facility] Comment on above: Performed By: #### P T, BMP, CBC, PTT #### [address] Lymphocytes (Bld) [#/Vol] 2.6 10*3/uL Normal 1.00-4.8 [facility] Comment on above: Performed By: #### P T, BMP, CBC, PTT #### [address] Lymphocytes/100 WBC (Bld) 26.1 % Normal . [facility] Comment on above: Performed By: #### P T, BMP, CBC, PTT #### [address] MCH (RBC) [Entitic mass] 31.3 pg Normal 27.5-35.2 [facility] Comment on above: Performed By: #### P T, BMP, CBC, PTT #### [address] MCV (RBC) [Entitic vol] 93.5 fL Normal 83.5-101 [facility] Comment on above: Performed By: #### P T, BMP, CBC, PTT #### [address] Mean Corpuscular HGB Conc 33.5 g/dL Normal 32.5-35.6 [facility] Comment on above: Performed By: #### P T, BMP, CBC, PTT #### [address] Monocytes (Bld) [#/Vol] 0.8 10*3/uL Normal 0.0-0.8 [facility] Comment on above: Performed By: #### P T, BMP, CBC, PTT #### [address] Monocytes/100 WBC (Bld) 15.54 % Normal 0.00-20.00 [facility] Comment on above: Performed By: #### P T, BMP, CBC, PTT #### [address] Monocytes/100 WBC (Bld) 8.3 % Normal . [facility] Comment on above: Performed By: #### P T, BMP, CBC, PTT #### [address] Neutrophils (Bld) [#/Vol] 5.9 10*3/uL Normal 1.8-7.7 [facility] Comment on above: Performed By: #### P T, BMP, CBC, PTT #### [address] Neutrophils/100 WBC (Bld) 60.1 % Normal . The [facility] Comment on above: Performed By: #### P T, BMP, CBC, PTT #### [facility] [address] NRBC% 0.0 /100{WBC} Normal 0-0.5 [facility] Comment on above: Performed By: #### P T, BMP, CBC, PTT #### [facility] [address] Platelet mean volume (Bld) [Entitic vol] 7.0 fL Normal 6.6-10.1 The [facility] Comment on above: Performed By: #### P T, BMP, CBC, PTT #### [facility] [address] Platelets (Bld) [#/Vol] 289 10*3/uL Normal 150-450 [facility] Comment on above: Performed By: #### P T, BMP, CBC, PTT #### [facility] [address] RBC (Bld) [#/Vol] 3.85 10*6/uL Low 3.90-5.60 The [facility] Comment on above: Performed By: #### P T, BMP, CBC, PTT #### [facility] [address] WBC (Bld) [#/Vol] 9.9 10*3/uL Normal 4.1-10.5 The [facility] Comment on above: Performed By: #### P T, BMP, CBC, PTT #### [facility] [address] [place] [address] Creatinine [Mass/volume] in Serum or PlasmaOrdered By: Delano Mondragon on 08-29-2024 Creatinine [Mass/Vol] Creatinine [Mass/volume] in Serum or Plasma High 0.70-1.30 [facility] Eosinophils Auto (Bld) [#/Vo l]Ordered By: Delano Mondragon on 08-29-2024 Eosinophils (Bld) [#/Vol] Automated eosinophil count High 0.0-0.45 [facility] Eosinophils/100 WBC Auto (Bl d)Ordered By: Delano Mondragon on 08-29-2024 Eosinophils/100 WBC (Bld) Automated eosinophil % . [facility] Erythrocyte distribution wid th Auto (RBC) [Ratio]Ordered By: Delano Mondragon on 08-29-2024 Erythrocyte distribution width (RBC) [Ratio] Erythrocyte distribution width [Ratio] by Automated count High 12.0-14.8 [facility] Glucose [Mass/volume] in Ser um or PlasmaOrdered By: Delano Mondragon on 08-29-2024 Glucose [Mass/Vol] Glucose [Mass/volume ] in Serum or Plasma High 70-100 [facility] Comment on above: ADA recommended refe rence rangeRandom Glucose Reference Range is dependent on time and content of last meal. Glucose of more than 200 mg/dL in a nonstressed, ambulatory subject supports the diagnosis of Diabetes Mellitus. Hematocrit Auto (Bld) [Volum e fraction]Ordered By: Delano Mondragon on 08-29-2024 Hematocrit (Bld) [Volume fraction] Hematocrit [Volume Fraction] of Blood by Automated count Low 38.8-50.0 [facility] Hemoglobin [Mass/volume] in BloodOrdered By: Delano Mondragon on 08-29-2024 Hemoglobin (Bld) [Mass/Vol] Hemoglobin [Mass/volume] in Blood Low 13.0-17.0 [facility] INR in Platelet poor plasma by Coagulation assayOrdered By: Delano Mondragon on 08-29-2024 INR Coag (PPP) [Relative time] INR in Platelet poor plasma by Coagulation assay [facility] Comment on above: INR Therapeutic Rang e [...] erythrocytes in Blood by Automated coun 4.1-10.5 [facility] Lymphocytes Auto (Bld) [#/Vo l]Ordered By: Delano Mondragon on 08-29-2024 Lymphocytes (Bld) [#/Vol] Lymphocytes [#/volume] in Blood by Automated count 1.00-4.8 [facility] Lymphocytes/100 WBC Auto (Bl d)Ordered By: Delano Mondragon on 08-29-2024 Lymphocytes/100 WBC (Bld) Lymphocytes/100 leukocytes in Blood by Automated count . [facility] MCH Auto (RBC) [Entitic mass ]Ordered By: Delano Mondragon on 08-29-2024 MCH (RBC) [Entitic mass] MCH [Entitic mass] by Automated count 27.5-35.2 [facility] MCHC Auto (RBC) [Mass/Vol]Or dered By: Delano Mondragon on 08-29-2024 MCHC (RBC) [Mass/Vol] MCHC [Mass/volume] by Automated count 32.5-35.6 [facility] MCV Auto (RBC) [Entitic vol] Ordered By: Delano Mondragon on 08-29-2024 MCV (RBC) [Entitic vol] MCV [Entitic volume] by Automated count 83.5-101 [facility] Monocyte distribution width [Entitic volume] in Blood by AutomatedOrdered By: Delano Mondragon on 08-29-2024 Monocyte distribution width Auto (Bld) [Entitic vol] Monocyte distribution width [Entitic volume] in Blood by Automated 0.00-20.00 [facility] Monocytes Auto (Bld) [#/Vol] Ordered By: Delano Mondragon on 08-29-2024 Monocytes (Bld) [#/Vol] Automated blood monocyte count 0.0-0.8 [facility] Monocytes/100 WBC Auto (Bld) Ordered By: Delano Mondragon on 08-29-2024 Monocytes/100 WBC (Bld) Automated monocyte % . [facility] Neutrophils Auto (Bld) [#/Vo l]Ordered By: Delano Mondragon on 08-29-2024 Neutrophils (Bld) [#/Vol] Neutrophils [#/volume] in Blood by Automated count 1.8-7.7 [facility] Neutrophils/100 WBC Auto (Bl d)Ordered By: Delano Mondragon on 08-29-2024 Neutrophils/100 WBC (Bld) Automated neutrophil % . [facility] No Panel InformationOrdered By: Delano Mondragon on 08-29-2024 Estimated GFR (CKD-EPI) 10.609 mL/Min [facility] Creatinine Clearance (Chem 21.80 [facility] Nucleated erythrocytes [Pres ence] in Blood by Automated countOrdered By: Delano Mondragon on 08-29-2024 Nucleated RBC Auto Ql (Bld) Nucleated erythrocytes [Presence] in Blood by Automated count 0-0.5 [facility] Partial Thromboplastin Timeo n 08-29-2024 aPTT Coag (Bld) [Time] 36.5 s Normal 25.1-36.5 Th e [facility] Comment on above: Result Comment: A he matocrit value greater than 55% may lead to inaccurate results in coagulation testing. Patients having hematocrit values >55% require a special collection tube for coagulation studies. Please contact the laboratory at [phone] for redraw instructions. PERFORMED BY: [place] [address] PATHOLOGIST [employer] KIM ELLIOTT M.D. Performed By: #### C RP, BMP, CBC, ESR #### [address] Platelet mean volume Auto (B ld) [Entitic vol]Ordered By: Delano Mondragon on 08-29-2024 Platelet mean volume (Bld) [Entitic vol] Platelet mean volume [Entitic volume] in Blood by Automated count 6.6-10.1 [facility] Platelets Auto (Bld) [#/Vol] Ordered By: Delano Mondragon on 08-29-2024 Platelets (Bld) [#/Vol] Platelets [#/volume] in Blood by Automated count 150-450 [facility] Potassium [Moles/volume] in Serum or PlasmaOrdered By: Delano Mondragon on 08-29-2024 Potassium [Moles/Vol] Potassium [Moles/volume] in Serum or Plasma 3.5-5.1 [facility] Prothrombin Time INRon 08-29 INR Coag (PPP) [Relative time] 1.0 {INR} Normal [facility] Comment on above: Result [...] 3 - 4.5 Performed By: #### C RP, BMP, CBC, ESR #### [facility] [address] [place] [address] [facility] PT Coag (PPP) [Time] 12.0 s Normal 9.0-12.9 [facility] Comment on above: Result Comment: A he matocrit value greater than 55% may lead to inaccurate results in coagulation testing. Patients having hematocrit values >55% require a special collection tube for coagulation studies. Please contact the laboratory at [phone] for redraw instructions. Performed By: #### C RP, BMP, CBC, ESR #### [facility] [address] [place] [address] [facility] Prothrombin time (PT)Ordered By: Delano Mondragon on 08-29-2024 PT Coag (PPP) [Time] Prothrombin time (PT) 9.0- 12.9 [facility] Comment on above: A hematocrit value g reater than 55% may lead to inaccurate results in coagulation testing. Patients having hematocrit values >55% require a special collection tube for coagulation studies. Please contact the laboratory at [phone] for redraw instructions. RBC Auto (Bld) [#/Vol]Ordere d By: Delano Mondragon on 08-29-2024 RBC (Bld) [#/Vol] Erythrocytes [#/volu me] in Blood by Automated count Low 3.90-5.60 [facility] Serum or plasma anion gap de terminationOrdered By: Delano Mondragon on 08-29-2024 Anion gap [Moles/Vol] Serum or plasma an ion gap determination High 6.0-15.0 [facility] Sodium [Moles/volume] in Ser um or PlasmaOrdered By: Delano Mondragon on 08-29-2024 Sodium [Moles/Vol] Sodium [Moles/volume ] in Serum or Plasma 136-145 [facility] US venous duplex LE RTon US venous duplex LE RT [facility] Main [place] [address] [place] [address] Ultrasound Report Signed Patient: Evans Forte MR#: [id number] : 1970 Acct:[id number] Age/Sex: 54 / M ADM Date: 08/28/24 Loc: ER Room: Type: [facility] ER Attending Dr: Ordering Provider: Delano [...] Ramirez Jean M.D.08/29/2024 10:46 AM Dictation Location: [place] [address] Tech: Idaniakavita Laughliner Transcribed By: CATHLEEN 08/29/24 1046 Dictated By: Ramirez Jean MD 08/29/24 1045 Signed By: 08/29/24 1046 Normal [facility] Urea nitrogen [Mass/volume] in Serum or PlasmaOrdered By: Delano Mondragon on 08-29-2024 Urea nitrogen [Mass/Vol] Urea nitrogen [Mass/volume] in Serum or Plasma High 7-25 [facility] WBC Auto (Bld) [#/Vol]Ordere d By: Delano Mondragon on 08-29-2024 WBC (Bld) [#/Vol] Leukocytes [#/volume ] in Blood by Automated count 4.1-10.5 [facility] aPTT in Platelet poor plasma by Coagulation assayOrdered By: Delano Mondragon on 08-29-2024 aPTT Coag (PPP) [Time] Activated partial thromboplastin time (aPTT) in platelet poor plasma by coagulation a 25.1-36.5 [facility] Comment on above: A hematocrit value g reater than 55% may lead to inaccurate results in coagulation testing. Patients having hematocrit values >55% require a special collection tube for coagulation studies. Please contact the laboratory at [phone] for redraw instructions. BONE MARROW CELL DIFFERENTIA Nick 08-22-2024 BM TOTAL CELLS COUNTED Normal [facility] Comment on above: Order Comment: See B one Marrow Exam Report Performed By: #### L [id number] ####[facility] ([facility])[address] [place] [address] BONE MARROW EXAMon LAB AP ANCILLARY RESULTS Normal [facility] Comment on above: Result Comment: Anci llary studies were completed at [facility]: Chromosomes, hematologic, bone marrow: - 46,XY[20]. Corrected result: Previously reported on 09/01/2024 at 1650 EST. Performed By: #### L [id number] ####[facility] ([facility] [place] [address] LAB AP ASPIRATE SMEAR Normal [facility] Comment on above: Result Comment: The aspirate smears are adequately spiculate. The jqxuwam-bp-shtkncvth ratio is normal. Cells of the myeloid [...] cells counted). Performed By: #### L [id number] ####[facility] ([facility])[address] [place] [address] LAB AP ASR DISCLAIMER The interpretation of [...] Clinical Laboratory Improvement Amendments of 1998. Normal [facility] Comment on above: Performed By: #### L [id number] ####[facility] ([facility])[address] [place] [address] LAB AP CASE REPORT Normal [facility] Comment on above: Result Comment: Bone Marrow Case: [id number] Authorizing Provider: Sivan Keller MD Collected: 08/22/2024 1019 Ordering Location: [facility] CT Imaging Received: 08/22/2024 1214 Pathologist: Jade Esquivel MD Specimens: A) - Bone Marrow Clot B) - Bone Marrow Biopsy C) - Bone Marrow Aspirate Performed By: #### L [id number] ####[facility] [place] [address] LAB AP CBC AND DIFFERENTIAL Normal [facility] Comment on above: Result Comment: Comp lete [...] unremarkable morphology. Performed By: #### L [id number] ####[facility] ([facility] [place] [address] LAB AP CLINICAL INFORMATION Order Diagnoses Normal [facility] Comment on above: Result Comment: R59. 0 - Localized enlarged lymph nodes [ICD-10-CM] R59.0 - Lymphadenopathy, inguinal [ICD-10-CM] R59.0 - Pelvic lymphadenopathy [ICD-10-CM] R93.89 - Nonspecific abnormal findings on diagnostic imaging [ICD-10-CM] Performed By: #### L [id number] ####[facility] ([facility])[address] [place] [address] LAB AP CLOT SECTION Normal [facility] Comment on above: Result Comment: The aspirate clot section reveals adequate marrow particles. Marrow cellularity and composition are similar to that identified in the core biopsy. There is a single, well-circumscribed lymphoid aggregate identified. Performed By: #### L [id number] ####[facility] ([facility])[address] [place] [address] LAB AP CORE BIOPSY Normal [facility] Comment on above: Result Comment: The fragmented core biopsy reveals 0.8 cm of evaluable marrow with moderate aspiration artifact. Marrow cellularity approximates 80%, hypercellular for age. Maturing trilineage hematopoiesis is well represented. No atypical proliferation is identified. Performed By: #### L [id number] ####[facility] ([facility])[address] [place] [address] LAB AP CORRECTION HISTORY Karyotype analysis completed; no change in diagnosis. Normal [facility] Comment on above: Performed By: #### L [id number] ####[facility] ([facility])[address] [place] [address] LAB AP DIAGNOSIS COMMENT Normal [facility] Comment on above: Result Comment: Cecilia ected result: Previously reported on 09/01/2024 at 1650 EST. Performed By: #### L [id number] ####[facility] ([facility])[address] [place] [address] LAB AP FLOW CYTOMETRY SUMMARY Normal [facility] Comment on above: Result Comment: Flow cytometry studies were completed at [facility]: Bone marrow, flow cytometric immunophenotyping: - Normal immunophenotyping results. No monotypic B-cell population or increase in blasts identified. Performed By: #### L [id number] ####[facility] ([facility])[address] [place] [address] LAB AP GROSS DESCRIPTION Normal [facility] Comment on above: Result Comment: A. B [...] for iron. Performed By: #### L [id number] ####[facility] ([facility])[address] [place] [address] LAB AP REPORT FINAL DIAGNOSIS NARRATIVE Normal [facility] Comment on above: Result Comment: A-C. Bone [...] 1650 EST. Performed By: #### L [id number] ####[facility] ([facility])[address] [place] [address] LAB AP SPECIAL STAINS Normal [facility] Comment on above: Result Comment: Iron stains were completed on the aspirate clot section, core biopsy and aspirate smear. Storage iron is decreased; no ring sideroblasts are identified. Performed By: #### L AB6 ####[facility] ([facility])[address] [place] [address] CBC WITH AUTO DIFFERENTIALon 08-22-2024 Basophils (Bld) [#/Vol] 0.06 10*3/uL Normal 0.00-0.20 [facility] Comment on above: Performed By: #### L [id number] #### [facility] ([facility]) [address] [place] [address] Basophils/100 WBC (Bld) 0.6 % Normal 0.0-1.0 [facility] Comment on above: Performed By: #### L [id number] #### [facility] ([facility]) [address] [place] [address] Eosinophils (Bld) [#/Vol] 0.53 10*3/uL High 0.00-0.50 [facility] Comment on above: Performed By: #### L [id number] #### [facility] [address] [place] [address] Eosinophils/100 WBC (Bld) 5.5 % Normal 0.0-6.0 [facility] Comment on above: Performed By: #### L [id number] #### [facility] ([facility]) [address] [place] [address] Erythrocyte distribution width (RBC) [Ratio] 14.5 % Normal 11.5-15.0 [facility] Comment on above: Performed By: #### L [id number] #### [facility] ([facility]) [address] [place] [address] ERYTHROCYTE MEAN CORPUSCULAR HEMOGLOBIN CONCENTRATION (G/DL) BY AUTOMATED 32.8 g/dL Normal 32.0-35.0 [facility] Comment on above: Performed By: #### L [id number] #### [facility] ([facility]) [address] [place] [address] Hematocrit (Bld) [Volume fraction] 36.9 % Low 39.0-55.0 [facility] Comment on above: Performed By: #### L [id number] #### [facility] ([facility]) [address] [place] [address] Hemoglobin (Bld) [Mass/Vol] 12.1 g/dL Low 13.0-17.0 [facility] Comment on above: Performed By: #### L [id number] #### [facility] ([facility]) [address] [place] [address] Immature granulocytes (Bld) [#/Vol] 0.05 10*3/uL Normal 0.00-0.20 [facility] Comment on above: Performed By: #### L [id number] #### [facility] ([facility]) [address] [place] [address] Immature granulocytes/100 WBC (Bld) 0.5 % Normal 0.0-1.0 [facility] Comment on above: Performed By: #### L [id number] #### [facility] ([facility]) [address] [place] [address] Lymphocytes (Bld) [#/Vol] 1.77 10*3/uL Normal 1.20-4.00 [facility] Comment on above: Performed By: #### L [id number] #### [facility] ([facility]) [address] [place] [address] Lymphocytes/100 WBC (Bld) 18.3 % Low 20.0-45.0 [facility] Comment on above: Performed By: #### L [id number] #### [facility] ([facility]) [address] [place] [address] MCH (RBC) [Entitic mass] 30.9 pg Normal 27.0-33.0 [facility] Comment on above: Performed By: #### L [id number] #### [facility] ([facility]) [address] [place] [address] MCV (RBC) [Entitic vol] 94.4 fL Normal 82.0-98.0 [facility] Comment on above: Performed By: #### L [id number] #### [facility] ([facility]) [address] [place] [address] Monocytes (Bld) [#/Vol] 0.65 10*3/uL Normal 0.10-1.00 [facility] Comment on above: Performed By: #### L [id number] #### [facility] [address] [place] [address] Monocytes/100 WBC (Bld) 6.7 % Normal 5.0-12.0 [facility] Comment on above: Performed By: #### L [id number] #### [facility] ([facility]) [address] [place] [address] Neutrophils (Bld) [#/Vol] 6.60 10*3/uL Normal 1.60-7.60 [facility] Comment on above: Performed By: #### L [id number] #### [facility] ([facility]) [address] [place] [address] Neutrophils/100 WBC (Bld) 68.4 % Normal 40.0-72.0 [facility] Comment on above: Performed By: #### L [id number] #### [facility] ([facility]) [address] [place] [address] NRBC (PER 100 WBCS) BY AUTOMATED COUNT 0.0 % Normal 0 [facility] Comment on above: Performed By: #### L [id number] #### [facility] ([facility]) [address] [place] [address] PLATELETS (10*3/UL) IN BLOOD AUTOMATED COUNT 227 10*3/uL Normal 150-400 [facility] Comment on above: Performed By: #### L [id number] #### [facility] ([facility]) [address] [place] [address] RBC (Bld) [#/Vol] 3.91 10*6/uL Low 4.20-5.70 [facility] Comment on above: Performed By: #### L [id number] #### [facility] ([facility] [address] [place] [address] WBC (Bld) [#/Vol] 9.66 10*3/uL Normal 4.00-10.60 [facility] Comment on above: Performed By: #### L [id number] #### [facility] ([facility]) [address] [place] [address] HISTOLOGY - TISSUE EXAMon LAB AP ADDENDUM 1 Normal [facility] Comment on above: Order Comment: Pre-o p diagnosis:Enlarged lymph node [R59.9] Result Comment: Stai n for Treponema pallidum is negative. Addendum electronically signed by Jade Esquivel MD on 09/13/2024 at 10:58 AM Performed By: #### L [id number] ####[facility] ([facility])[address] [place] [address] LAB AP ASR DISCLAIMER The interpretation of [...] the Clinical Laboratory Improvement Amendments of 1998. [facility] Comment on above: Order Comment: Pre-o p diagnosis:Enlarged lymph node [R59.9] Performed By: #### L [id number] ####[facility] ([facility])[address] [place] [address] LAB AP CASE REPORT Normal [facility] Comment on above: Order Comment: Pre-o p diagnosis:Enlarged lymph node [R59.9] Result Comment: Surg ical Pathology Case: [id number] Authorizing Provider: Erick Carter MD Collected: 08/22/2024 1656 Ordering Location: [facility] Main Operating Room Received: 08/24/2024 0812 Pathologist: Jade Esquivel MD Specimens: A) - Lymph Node, right groin, frozen section B) - Lymph Node, Right groim, for permanent Performed By: #### L [id number] ####[facility] ([facility])[address] [place] [address] LAB AP CLINICAL INFORMATION [facility] Comment on above: Order Comment: Pre-o p diagnosis:Enlarged lymph node [R59.9] Result Comment: Post -Op Diagnoses R59.9 - Enlarged lymph node [ICD-10-CM] R59.0 - Inguinal lymphadenopathy [ICD-10-CM] Performed By: #### L [id number] ####[facility] ([facility])[address] [place] [address] LAB AP DIAGNOSIS COMMENT The morphologic features of the lymph node are favored to represent a reactive etiology; there is no evidence of malignancy in the lymph node submitted. A Treponema pallidum stain is pending; results will be reported in an addendum. Normal [facility] Comment on above: Order Comment: Pre-o p diagnosis:Enlarged lymph node [R59.9] Performed By: #### L [id number] ####[facility] ([facility])[address] [place] [address] LAB AP FLOW CYTOMETRY SUMMARY Normal [facility] Comment on above: Order Comment: Pre-o p diagnosis:Enlarged lymph node [R59.9] Result Comment: Flow cytometry studies were completed at [facility] Laboratories: Leukemia/lymphoma phenotyping evaluation by flow cytometry: - No abnormal myeloid, B-cell, T-cell, NK-cell or plasma cell population is identified. Performed By: #### L [id number] ####[facility] ([facility])[address] [place] [address] LAB AP GROSS DESCRIPTION A. Lymph Node. Normal [facility] Comment on above: Order Comment: Pre-o p diagnosis:Enlarged lymph node [R59.9] Result Comment: Rece ived fresh labeled Evans Forte, Lymph node are two soft tissue fragments, [...] submitted in 4 cassettes. Lisette North, [facility] [place] [employer] B. Lymph Node. Received in formalin labeled Evans Forte, Right groin is a burns rubbery lobulated bulky portion of partially shaggy tissue, 2.8 x 2 x 1.7 cm. The specimen is serially sectioned to reveal burns finely granular uniform cut surfaces and is entirely submitted in 6 cassettes. Lisette North, Pathologists' [employer] Sh[employer] Ragger Performed By: #### L [id number] ####[facility] (BEAKER)[address] [place] [address] LAB AP MICROSCOPIC DESCRIPTION Microscopic examination performed. [facility] Comment on above: Order Comment: Pre-o p diagnosis:Enlarged lymph node [R59.9] Performed By: #### L [id number] ####[facility] (BEAKER)[address] [place] [address] LAB AP REPORT FINAL DIAGNOSIS NARRATIVE [facility] Comment on above: Order Comment: Pre-o p diagnosis:Enlarged lymph node [R59.9] Result Comment: A-B. Lymph node, right groin, excision: - Lymph node with reactive follicular hyperplasia, plasmacytosis and focally thickened capsule. - No evidence of malignancy. - See comment. Performed By: #### L [id number] ####[facility] (BEAKER)[address] [place] [address] HPon 08-22-2024 HP H&P reviewed. The patient was examined and there are no changes to the H&P. Normal [facility] Labon 08-22-2024 Lab [id number] Evans Forte 1970 Date Provider Department Center 08/22/2024 224-[facility] OPD LAB RESOURCE [facility] OPD AR Medical C Family History Problem Relation Age [...] Maternal Grandmother Daughter Father's Brother Alive Normal [facility] OPNOTEon 08-22-2024 OPNOTE EXCISIONAL RIGHT TYRONE IN LYMPH NODE BIOPSY (R) Operative Note Date: 08/22/2024 Location: [facility] OR Name: Evans Forte, : 1970, Diagnosis [...] FLOW CYTOMETRY Erick Carter MD 08/22/241655 Routine [id number] Description: right groin flow cytometry A Lymph Node Tissue HISTOLOGY - TISSUE EXAM Erick Carter MD 08/22/241655 Routine Description: right groin permanent Staff: Primer Press Operator: Aristeo Lisa RN Scrub Person: Waldemar Kelsey [...] count and sponge count were correct. Normal [facility] POCT GLUCOSE METER UNSOLICIT ED RESULTSon 08-22-2024 Glucose [Mass/Vol] 97 mg/dL Normal 70-105 [facility] Comment on above: Order Comment: Waive d Testing in the ED is performed under the ED CLIA certificate #[id number]. Result Comment: skir by Performed By: #### L [id number] #### [facility] (BEAKER) [address] [place] [address] Glucose [Mass/Vol] 115 mg/dL High 70-105 [facility] Comment on above: Order Comment: Waive d Testing in the ED is performed under the ED CLIA certificate #[id number]. Result Comment: dhol as Performed By: #### L [id number] #### [facility] (BEAKER) [address] [place] [address] PROTIME-INRon 08-22-2024 INR IN PPP BY COAGULATION ASSAY 1.01 Normal 0.90-1.10 [facility] Comment on above: Result Comment: ACCC P [...] RANGE. CHEST 1995;108:231S-246S. Performed By: #### L [id number] #### [facility] (BEAKER) [address] [place] [address] PROTHROMBIN TIME (PT) IN PPP BY COAGULATION ASSAY 13.3 Seconds Normal 12.3-14.8 [facility] Comment on above: Performed By: #### L [id number] #### [facility] (BEAKER) [address] [place] [address] Orders Onlyon 08-18-2024 Orders Only [id number] Evans Forte 1970 M Date Provider Department Center 08/18/2024 NANCY REYES [facility] Family [facility] Problem Relation Age of [...] Maternal Grandmother Daughter Father's Brother Alive Normal [facility] Consulton 08-08-2024 Consult [id number] Evans Forte 1970 M Date Provider Department Center 08/08/2024 ERICK MATOS [facility] SURG Second In Family History Problem Relation Age of Onset [...] Grandmother Daughter Father's Brother Alive Level of Service:12075 AL OFFICE/OUTPATIENT NEW LOW MDM 30 MINUTES Reason for Visit and Comments: Consult [484] - Patient is here today for enlarged lymph nodes and is s/p PET scan. Normal [facility] HPon 08-08-2024 HP Subjective Patient ID: Evans Forte is [...] skull base to mid thigh FDG Order: [id number] Status: Final result Visible to patient: Yes (seen) Dx: Enlarged lymph nodes; Pre-transplant ... 0 Result Notes Details Reading Physician Reading Date Result Priority Alonso Jaffe MD [phone] 07/31/2024 Routine Narrative & Impression History: Pretransplant [...] CT abdomen pelvis wo renal recipient Order: [id number] Status: Edited Result - FINAL Visible to patient: Yes (seen) Dx: Pre-transplant evaluation for kidney ... 0 Result Notes Details Reading Physician Reading Date Result Priority Alonso Sampson MD [phone] 07/12/2024 Routine Addenda Addendum: Note that there [...] No suspiciou (more content not included)... Normal [facility] 36on 07-31-2024 36 Patient contacted [facility] regarding the results of his PET/CT that [...] time. Patient verbalized understanding. Maria De Jesus Rutledge, RN [facility] POCT GLUCOSE METER UNSOLICIT ED RESULTSon 07-28-2024 Glucose [Mass/Vol] 125 mg/dL High 70-105 [facility] Comment on above: Order Comment: Waive d Testing in the ED is performed under the ED CLIA certificate #[id number]. Result Comment: solange [email or web address] Performed By: #### L [id number] ####[facility] (BEAKER)[address] [place] [address] HPon 07-27-2024 History Of Present Illness Evans [...] a past medical history of Adrenal nodule ([facility]), Anemia, Anxiety, Charcot foot due to diabetes mellitus ([facility]), Chronic sinusitis, COVID-19, Diabetic foot ulcers ([facility]), Diabetic polyneuropathy ([facility]), Diabetic retinopathy ([facility]), ED (erectile dysfunction), ESRD (end stage renal disease) ([facility]) (11/23/2022), GERD (gastroesophageal reflux disease), Glaucoma, History of tobacco use, Hyperlipidemia, Hypertension, Hypogonadism in male, Hypothyroidism, Insomnia, Neuropathy, Obesity, Osteomyelitis of ankle or foot, left, acute ([facility]), Pancreatitis, Past history of chewing tobacco use, Peripheral artery disease ([facility]), Proteinuria, Sleep apnea, Type 2 diabetes mellitus ([facility]), and Vitamin D deficiency. Surgical History He [...] Adhesive tape-silicones, Latex, Vancomycin, Adhesive, Haloperidol, and [employer] oil Medications Medications Prior to Admission Medication [...] Exam Constitutional: Appearan (more content not included)... [facility] NURSNOTEon 07-27-2024 NURSNOTE RN educated pt on d/ c instructions. [...] off of unit with all of belongings. [facility] NURSNOTE .amparo [facility] Office Visiton 07-25-2024 Follow-up visit [id number] Evans Forte 1970 M Date Provider Department Center 07/25/2024 FAUSTINO GUZMÁN [facility]F [facility] Family History Problem Relation Age of Onset Breast cancer Mother Comments: age 53, METS to brain Heart disease Father Heart attack Father Comments: age 26 No Known Problems Sister Comments: half-sister Crohn's disease Daughter Comments: perforated bowel Family Status - Relation Status Age at Mother Father Sister Daughter Level of Service:70420 AL OFFICE/OUTPATIENT NEW LOW MDM 30 MINUTES [facility] Documentationon 07-14-2024 Documentation [id number] Evans Forte 1970 M Date Provider Department Center 07/14/2024 [id number] CINTRON None Family History Problem Relation Age of Onset Breast cancer Mother Comments: age 53, METS to brain Heart disease Father Heart attack Father Comments: age 26 No Known Problems Sister Comments: half-sister Crohn's disease Daughter Comments: perforated bowel Family Status - Relation Status Age at Mother Father Sister Daughter [facility] 36on 07-12-2024 36 TC contacted patient regarding CT results. No answer. Left voicemail. Melinda Hidalgo, RN Normal [facility] B-TYPE NATRIURETIC PEPTIDEon 07-11-2024 Natriuretic peptide B (Bld) [Mass/Vol] 43 pg/mL Normal 0-100 [facility] Comment on above: Performed By: #### L [id number] ####[facility] ([facility])[address] [place] [address] BILIRUBIN, DIRECTon 07-11-20 24 Magnesium [Mass/Vol] 0.1 mg/dL Normal 0-0.2 [facility] Comment on above: Performed By: #### L [id number] ####[facility] ([facility])[address] [place] [address] CBC WITH AUTO DIFFERENTIALon 07-11-2024 Basophils (Bld) [#/Vol] 0.08 10*3/uL Normal 0.00-0.20 [facility] Comment on above: Performed By: #### L [id number] ####[facility] [place] [address] Basophils/100 WBC (Bld) 1.0 % Normal 0.0-1.0 [facility] Comment on above: Performed By: #### L [id number] ####[facility] [place] [address] Eosinophils (Bld) [#/Vol] 0.30 10*3/uL Normal 0.00-0.50 [facility] Comment on above: Performed By: #### L [id number] ####[facility] [place] [address] Eosinophils/100 WBC (Bld) 3.6 % Normal 0.0-6.0 [facility] Comment on above: Performed By: #### L [id number] ####[facility] (BEAKER)[address] [place] [address] Erythrocyte distribution width (RBC) [Ratio] 14.6 % Normal 11.5-15.0 [facility] Comment on above: Performed By: #### L [id number] ####[facility] (BEAKER)[address] [place] [address] ERYTHROCYTE MEAN CORPUSCULAR HEMOGLOBIN CONCENTRATION (G/DL) BY AUTOMATED 32.8 g/dL Normal 32.0-35.0 [facility] Comment on above: Performed By: #### L [id number] ####[facility] [place] [address] Hematocrit (Bld) [Volume fraction] 36.3 % Low 39.0-55.0 [facility] Comment on above: Performed By: #### L [id number] ####[facility] ([facility])[address] [place] [address] Hemoglobin (Bld) [Mass/Vol] 11.9 g/dL Low 13.0-17.0 [facility] Comment on above: Performed By: #### L [id number] ####[facility] [place] [address] Immature granulocytes (Bld) [#/Vol] 0.08 10*3/uL Normal 0.00-0.20 [facility] Comment on above: Performed By: #### L [id number] ####[facility] (BEAKER)[address] [place] [address] Immature granulocytes/100 WBC (Bld) 1.0 % Normal 0.0-1.0 [facility] Comment on above: Performed By: #### L [id number] ####[facility] (BEAKER)[address] [place] [address] Lymphocytes (Bld) [#/Vol] 2.21 10*3/uL Normal 1.20-4.00 [facility] Comment on above: Performed By: #### L [id number] ####[facility] (BEAKER)[address] [place] [address] Lymphocytes/100 WBC (Bld) 26.5 % Normal 20.0-45.0 [facility] Comment on above: Performed By: #### L [id number] ####[facility] (BEAKER)[address] [place] [address] MCH (RBC) [Entitic mass] 30.1 pg Normal 27.0-33.0 [facility] Comment on above: Performed By: #### L [id number] ####[facility] (BEAKER)[address] [place] [address] MCV (RBC) [Entitic vol] 91.9 fL Normal 82.0-98.0 [facility] Comment on above: Performed By: #### L [id number] ####[facility] (BEAKER)[address] [place] [address] Monocytes (Bld) [#/Vol] 0.82 10*3/uL Normal 0.10-1.00 [facility] Comment on above: Performed By: #### L [id number] ####[facility] (BEAKER)[address] [place] [address] Monocytes/100 WBC (Bld) 9.8 % Normal 5.0-12.0 [facility] Comment on above: Performed By: #### L [id number] ####[facility] (BEAKER)[address] [place] [address] Neutrophils (Bld) [#/Vol] 4.84 10*3/uL Normal 1.60-7.60 [facility] Comment on above: Performed By: #### L [id number] ####[facility] (BEAKER)[address] [place] [address] Neutrophils/100 WBC (Bld) 58.1 % Normal 40.0-72.0 [facility] Comment on above: Performed By: #### L [id number] ####[facility] (BEAKER)[address] [place] [address] NRBC (PER 100 WBCS) BY AUTOMATED COUNT 0.0 % Normal 0 [facility] Comment on above: Performed By: #### L [id number] ####[facility] (BEAKER)[address] [place] [address] PLATELETS (10*3/UL) IN BLOOD AUTOMATED COUNT 331 10*3/uL Normal 150-400 [facility] Comment on above: Performed By: #### L [id number] ####[facility] ([facility])[address] [place] [address] RBC (Bld) [#/Vol] 3.95 10*6/uL Low 4.20-5.70 [facility] Comment on above: Performed By: #### L [id number] ####[facility] ([facility])[address] [place] [address] WBC (Bld) [#/Vol] 8.33 10*3/uL Normal 4.00-10.60 [facility] Comment on above: Performed By: #### L [id number] ####[facility] ([facility])[address] [place] [address] COMPREHENSIVE METABOLIC PANE Nick 07-11-2024 Albumin [Mass/Vol] 4.2 g/dL Normal 3.5-5.7 [facility] Comment on above: Performed By: #### L [id number] ####[facility] ([facility])[address] [place] [address] ALP [Catalytic activity/Vol] 115 U/L High 34-104 [facility] Comment on above: Performed By: #### L [id number] ####[facility] ([facility])[address] [place] [address] ALT [Catalytic activity/Vol] 12 U/L Normal 7-52 [facility] Comment on above: Performed By: #### L [id number] ####[facility] ([facility])[address] [place] [address] Anion gap [Moles/Vol] 14 mmol/L Normal 7-20 [facility] Comment on above: Performed By: #### L [id number] ####[facility] ([facility])[address] [place] [address] AST [Catalytic activity/Vol] 8 U/L Low 13-39 [facility] Comment on above: Performed By: #### L [id number] ####[facility] (BEAKER)[address] [place] [address] Bilirubin [Mass/Vol] 0.5 mg/dL Normal 0.3-1.0 [facility] Comment on above: Performed By: #### L [id number] ####[facility] [place] [address] Calcium [Mass/Vol] 9.4 mg/dL Normal 8.6-10.3 [facility] Comment on above: Performed By: #### L [id number] ####[facility] [place] [address] Chloride [Moles/Vol] 98 mmol/L Normal 98-107 [facility] Comment on above: Performed By: #### L [id number] ####[facility] [place] [address] CO2 [Moles/Vol] 31 mmol/L Normal 21-[address] [facility] Comment on above: Performed By: #### L [id number] ####[facility] ([facility] [place] [address] Creatinine [Mass/Vol] 7.27 mg/dL High 0.70-1.30 [facility] Comment on above: Performed By: #### L [id number] ####[facility] ([facility] [place] [address] GLOMERULAR FILTRATION RATE ML/MIN/1.73 SQ M.PREDICTED 8.3 mL/min/1.73m*2 Low >60.0 [facility] Comment on above: Result Comment: The [facility]???s estimated glomerular filtration rate (eGFR) will no [...] of individuals. Performed By: #### L [id number] ####[facility] ([facility])[address] [place] [address] Glucose [Mass/Vol] 216 mg/dL High 70-100 [facility] Comment on above: Performed By: #### L [id number] ####[facility] ([facility])[address] [place] [address] Potassium [Moles/Vol] 4.1 mmol/L Normal 3.5-5.1 [facility] Comment on above: Performed By: #### L [id number] ####[facility] ([facility])[address] [place] [address] Protein [Mass/Vol] 7.6 g/dL Normal 6.0-8.3 [facility] Comment on above: Performed By: #### L [id number] ####[facility] ([facility])[address] [place] [address] Sodium [Moles/Vol] 139 mmol/L Normal 136-145 [facility] Comment on above: Performed By: #### L [id number] ####[facility] ([facility])[address] [place] [address] Urea nitrogen [Mass/Vol] 53 mg/dL High 7-25 [facility] Comment on above: Performed By: #### L [id number] ####[facility] ([facility])[address] [place] [address] UREA NITROGEN/CREATININE (MASS RATIO) IN SER/PLAS 7.3 Normal [facility] Comment on above: Performed By: #### L [id number] ####[facility] ([facility])[address] [place] [address] CT ABDOMEN PELVIS WO RENAL R ECIPIENTon [...] reasonably achievable. Electronically signed: Alonso Sampson. Normal [facility] HEMOGLOBIN A1Con 07-11-2024 Glucose [Mass/Vol] 166 mg/dL Normal [facility] Comment on above: Performed By: #### L [id number] #### [facility] (BEAKER) [address] [place] [address] HbA1c (Bld) [Mass fraction] 7.4 % High 4.0-6.0 [facility] Comment on above: Performed By: #### L [id number] #### [facility] (BEAKER) [address] [place] [address] HEPATITIS A ANTIBODY, IGMon 07-11-2024 HEPATITIS A VIRUS IGM AB PRESENCE IN SER/PLAS Non-Reactive Normal Nonreactive [facility] Comment on above: Performed By: #### L [id number] #### [facility] (BEAKER) [address] [place] [address] HEPATITIS B CORE ANTIBODY, I GMon 07-11-2024 HEPATITIS B VIRUS CORE IGM AB PRESENCE IN SER/PLAS BY IMMUNOASSY Negative Normal Negative [facility] Comment on above: Result Comment: INTE RPRETIVE INFORMATION: Hepatitis B Core Ab, IgM This assay should not be used for blood donor screening, associated re-entry protocols, or for screening Human Cells, Tissues and Cellular and Tissue-Based Products (HCT/P). Performed By: [employer] [address] [place] [address] [employer] Worker: Aristeo Salgado MD, PhD CLIA Number: [id number] Performed By: #### L [id number] #### [facility] ([facility] [address] [place] [address] HEPATITIS B CORE ANTIBODY, T OTALon 07-11-2024 HEPATITIS B VIRUS CORE AB (PRESENCE) IN SER/PLAS BY IMM Non-Reactive Normal Nonreactive [facility] Comment on above: Performed By: #### L [id number] ####[facility] ([facility])[address] [place] [address] HEPATITIS B SURFACE ANTIBODY QUANTon 07-11-2024 HEPATITIS B VIRUS SURFACE AB (MIU/ML) IN SERUM 1.48 mIU/mL Normal [facility] Comment on above: Result Comment: INTE RPRETATION: NONREACTIVE <8.00 mIU/mL INDETERMINATE 8.00 - 12.00 mIU/mL REACTIVE >12 mIU/mL Performed By: #### L [id number] #### [facility] [address] [place] [address] HEPATITIS B SURFACE ANTIGENo n 07-11-2024 HEPATITIS B VIRUS SURFACE AG PRESENCE IN SERUM Non-Reactive Normal Nonreactive [facility] Comment on above: Performed By: #### L [id number] ####[facility] ([facility] [place] [address] HEPATITIS C ANTIBODYon 07-11 HEPATITIS C VIRUS AB PRESENCE IN SERUM Non-Reactive Normal Nonreactive [facility] Comment on above: Performed By: #### L [id number] ####[facility] ([facility])[address] [place] [address] HIV COMBO 4Gon 07-11-2024 HIV COMBO 4G Negative Normal Negative [facility] Comment on above: Performed By: #### L [id number] ####[facility] (BEAKER)[address] [place] [address] HLA ABC CLASS I TYPINGon A*-1 2 [facility] Comment on above: Performed By: #### L [id number] #### [facility] (BEAKER) [address] [place] [address] A*-2 25 [facility] Comment on above: Performed By: #### L [id number] #### [facility] (BEAKER) [address] [place] [address] B*-1 44 [facility] Comment on above: Performed By: #### L [id number] #### [facility] (BEAKER) [address] [place] [address] B*-2 57 [facility] Comment on above: Performed By: #### L [id number] #### [facility] (BEAKER) [address] [place] [address] BW*-1 4 [facility] Comment on above: Performed By: #### L [id number] #### [facility] ([facility]) [address] [place] [address] C*-1 5 [facility] Comment on above: Performed By: #### L [id number] #### [facility] ([facility]) [address] [place] [address] C*-2 6 [facility] Comment on above: Performed By: #### L [id number] #### [facility] ([facility]) [address] [place] [address] HLA ABC CLASS I TYPING TEST METHOD Class I typing by PCR-SSOP [facility] Comment on above: Performed By: #### L [id number] #### [facility] ([facility]) [address] [place] [address] HLA ABC TESTED DATE [id number] [facility] Comment on above: Performed By: #### L [id number] #### [facility] ([facility]) [address] [place] [address] CLASS II TYPINGon DPB1*-1 04:01 [facility] Comment on above: Performed By: #### L [id number] #### [facility] ([facility]) [address] [place] [address] DPB1*-2 04:01 [facility] Comment on above: Performed By: #### L [id number] #### [facility] ([facility]) [address] [place] [address] DQA1*-1 01 [facility] Comment on above: Performed By: #### L [id number] #### [facility] ([facility]) [address] [place] [address] DQA1*-2 02 [facility] Comment on above: Performed By: #### L [id number] #### [facility] ([facility]) [address] [place] [address] DQB1*-1 9 [facility] Comment on above: Performed By: #### L [id number] #### [facility] ([facility]) [address] [place] [address] DQB1*-2 5 [facility] Comment on above: Performed By: #### L [id number] #### [facility] [address] [place] [address] DRB1*-1 1 [facility] Comment on above: Performed By: #### L [id number] #### [facility] ([facility]) [address] [place] [address] DRB1*-2 7 [facility] Comment on above: Performed By: #### L [id number] #### [facility] ([facility]) [address], [place] [address] DRB4*-2 53N Normal [facility] Comment on above: Performed By: #### L [id number] #### [facility] ([facility] [address] [place] [address] HLA COMMENTS Due to available spa ce, 53N represents the DRB4*01:03:01:02N null allele. [facility] Comment on above: Performed By: #### L [id number] #### [facility] ([facility] [address] [place] [address] CLASS II TYPING TEST METHOD Class II typing by PCR-SSOP [facility] Comment on above: Performed By: #### L [id number] #### [facility] ([facility] [address] [place] [address] TESTED DATE Normal [facility] Comment on above: Performed By: #### L [id number] #### [facility] ([facility] [address] [place] [address] LIPID PANELon 07-11-2024 CHOL/HDL 5.5 mg/dL [facility] Comment on above: Performed By: #### L [id number] ####[facility] ([facility] [place] [address] Cholesterol [Mass/Vol] 186 mg/dL Normal 120-200 Un [facility] Comment on above: Performed By: #### L [id number] ####[facility] ([facility] [place] [address] Magnesium [Mass/Vol] 237 mg/dL High 40-149 [facility] Comment on above: Result Comment: TRIG LYCERIDE REFERENCE RANGE: 20 YEARS AND OLDER CARDIOVASCULAR RISK LESS THAN 150 mg/dL LOW RISK 150 TO 199 mg/dL BORDERLINE RISK 200 mg/dL AND GREATER HIGH RISK Performed By: #### L [id number] ####[facility] (BEAKER)[address] [place] [address] Magnesium [Mass/Vol] 105 mg/dL Normal 0-160 [facility] Comment on above: Performed By: #### L [id number] ####[facility] (BEAKER)[address] [place] [address] Magnesium [Mass/Vol] 34 mg/dL Normal 23-92 [facility] Comment on above: Performed By: #### L [id number] ####[facility] ([facility] [place] [address] NON HDL CHOL. (LDL+VLDL) 152 Normal [facility] Comment on above: Performed By: #### L [id number] ####[facility] ([facility] [place] [address] TOTAL VLDL-C 47 mg/dL High 0-40 [facility] Comment on above: Performed By: #### L [id number] ####[facility] ([facility] [place] [address] PANEL REACTIVE ANTIBODYon HOLD SPECIMEN Hold for add-ons. Normal [facility] Comment on above: Result Comment: Auto resulted. Performed By: #### L [id number] ####[facility] TISSUE TYPING (HISTOTRAC)[address] [place] [address] [place] PROTIME-INRon 07-11-2024 INR IN PPP BY COAGULATION ASSAY 1.08 Normal 0.90-1.10 [facility] Comment on above: Result Comment: ACCC P [...] CHEST 1995;108:231S-246S. Performed By: #### L [id number] ####[facility] ([facility] [place] [address] PROTHROMBIN TIME (PT) IN PPP BY COAGULATION ASSAY 14.0 Seconds Normal 12.3-14.8 [facility] Comment on above: Performed By: #### L [id number] ####[facility] ([facility] [place] [address] PSA, SCREENINGon 07-11-2024 PROSTATE SPECIFIC AG (NG/ML) IN SER/PLAS 1.4 ng/mL Normal 0.4-4 [facility] Comment on above: Performed By: #### L [id number] ####[facility] ([facility] [place] [address] SINGLE ANTIGEN CLASS Ion CLASS I LOW RISK AB A:23 29 B:8 Normal [facility] Comment on above: Performed By: #### L [id number] #### [facility] ([facility] [address] [place] [address] CLASS I SPECIFICITY AB A:11 B:76 Normal [facility] Comment on above: Performed By: #### L [id number] #### [facility] [employer] [facility] [address] [place] [address] CLASS I TESTED DATE [id number] Normal [facility] Comment on above: Performed By: #### L [id number] #### [facility] [facility] [address] [place] [address] SINGLE ANTIGEN CLASS 1 TEST METHOD Class I Single Antigen Normal [facility] Comment on above: Performed By: #### L [id number] #### [facility] ([facility] [address] [place] [address] SINGLE ANTIGEN CLASS IIon CLASS II LOW RISK AB DRw:53 Normal [facility] Comment on above: Performed By: #### L [id number] #### [facility] TISSUE TYPING (HISTOTRAC) [address] [place] [address] [place] CLASS II TESTED DATE [facility] Comment on above: Performed By: #### L [id number] #### [facility] TISSUE TYPING (HISTOTRAC) [address] [place] [address] [facility] CPRA 12 [facility] Comment on above: Performed By: #### L [id number] #### [facility] TISSUE TYPING (HISTOTRAC) [address] [place] [address] [place] Performed By: #### L [id number] #### [facility] [address] [place] [address] SIGNED BY Signed by Delano betancourt C[facility] HEATHER([facility]), Field Support Technician Transplant Immunology [facility] Comment on above: Performed By: #### L [id number] #### [facility] TISSUE TYPING (HISTOTRAC) [address] [place] [address] [place] Performed By: #### L [id number] #### [facility] [address] [place] [address] Result Comment: Clas s I Antigen Microbeads SINGLE ANTIGEN CLASS 2 TEST METHOD Class II Single Antigen Normal [facility] Comment on above: Result Comment: Clas s II Antigen Microbeads Performed By: #### L [id number] #### [facility] TISSUE TYPING (HISTOTRAC) [address] [place] [address] [place] TESTOSTERONE, FREE AND TOTAL , AND SHBGon 07-11-2024 SEX HORMONE BINDING GLOBULIN (NMOL/L) IN SER/PLAS 14 nmol/L Low 19-76 [facility] Comment on above: Performed By: #### L [id number] ####[facility] [employer] [id number] [place] [address] TESTOSTERONE (NG/DL) IN SER/PLAS 408 ng/dL Normal 193-740 [facility] Comment on above: Performed By: #### L [id number] ####[facility] [employer] [id number] [place] [address] TESTOSTERONE FREE (NG/ML) IN SER/PLAS 122.7 pg/mL Normal 47.0-244.0 [facility] Comment on above: Result Comment: The concentration of free testosterone is derived from a mathematical expression based on the constant for the binding of testosterone to albumin and/or sex hormone binding globulin. Test Performed by [employer] [address] [place] [id number] - Released 07/11/2024 18:27 Performed By: #### L [id number] ####[facility] [place] [id number] TYPE AND SCREENon 07-11-2024 AB SCREEN Negative Normal [facility] Comment on above: Performed By: #### L [id number] ####[facility], ABO group Nom (Bld) A Normal [facility] Comment on above: Performed By: #### L [id number] ####[facility], RH TYPE IN BLOOD Positive Normal [facility] Comment on above: Performed By: #### L [id number] ####[facility], BASIC METABOLIC PANELon 06-06 Anion gap [Moles/Vol] 16 mmol/L Normal 7-20 [facility] Comment on above: Performed By: #### L [id number] ####[facility] (BEAKER)[address] [place] [address] Calcium [Mass/Vol] 8.7 mg/dL Normal 8.6-10.3 [facility] Comment on above: Performed By: #### L [id number] ####[facility] (BEAKER)[address] [place] [address] Chloride [Moles/Vol] 101 mmol/L Normal 98-107 [facility] Comment on above: Performed By: #### L [id number] ####[facility] ([facility])[address] [place] [address] CO2 [Moles/Vol] 25 mmol/L Normal 21-[address] [facility] Comment on above: Performed By: #### L [id number] ####[facility] ([facility] [place] [address] Creatinine [Mass/Vol] 7.29 mg/dL High 0.70-1.30 [facility] Comment on above: Performed By: #### L [id number] ####[facility] ([facility])[address] [place] [address] GLOMERULAR FILTRATION RATE ML/MIN/1.73 SQ M.PREDICTED 8.3 mL/min/1.73m*2 Low >60.0 [facility] Comment on above: Result Comment: The [facility]???s estimated glomerular filtration rate (eGFR) will no [...] of individuals. Performed By: #### L [id number] ####[facility] ([facility])[address] [place] [address] Glucose [Mass/Vol] 126 mg/dL High 70-100 [facility] Comment on above: Performed By: #### L [id number] ####[facility] ([facility] [place] [address] Potassium [Moles/Vol] 4.4 mmol/L Normal 3.5-5.1 [facility] Comment on above: Performed By: #### L [id number] ####[facility] (BEAKER)[address] [place] [address] Sodium [Moles/Vol] 138 mmol/L Normal 136-145 [facility] Comment on above: Performed By: #### L [id number] ####[facility] (BEAKER)[address] [place] [address] Urea nitrogen [Mass/Vol] 67 mg/dL High 7-25 [facility] Comment on above: Performed By: #### L [id number] ####[facility] [place] [address] UREA NITROGEN/CREATININE (MASS RATIO) IN SER/PLAS 9.2 Normal [facility] Comment on above: Performed By: #### L [id number] ####[facility] [place] [address] CBC WITH AUTO DIFFERENTIALon 06-22-2024 Basophils (Bld) [#/Vol] 0.03 10*3/uL Normal 0.00-0.20 [facility] Comment on above: Performed By: #### L [id number] ####[facility] (BEAKER)[address] [place] [address] Basophils/100 WBC (Bld) 0.3 % Normal 0.0-1.0 [facility] Comment on above: Performed By: #### L [id number] ####[facility] (BEAKER)[address] [place] [address] Eosinophils (Bld) [#/Vol] 0.24 10*3/uL Normal 0.00-0.50 [facility] Comment on above: Performed By: #### L [id number] ####[facility] (BEAKER)[address] [place] [address] Eosinophils/100 WBC (Bld) 2.1 % Normal 0.0-6.0 [facility] Comment on above: Performed By: #### L [id number] ####[facility] (BEAKER)[address] [place] [address] Erythrocyte distribution width (RBC) [Ratio] 15.2 % High 11.5-15.0 [facility] Comment on above: Performed By: #### L [id number] ####[facility] (BEAKER)[address] [place] [address] ERYTHROCYTE MEAN CORPUSCULAR HEMOGLOBIN CONCENTRATION (G/DL) BY AUTOMATED 32.7 g/dL Normal 32.0-35.0 [facility] Comment on above: Performed By: #### L [id number] ####[facility] (BEAKER)[address] [place] [address] Hematocrit (Bld) [Volume fraction] 37.0 % Low 39.0-55.0 [facility] Comment on above: Performed By: #### L [id number] ####[facility] (BEAKER)[address] [place] [address] Hemoglobin (Bld) [Mass/Vol] 12.1 g/dL Low 13.0-17.0 [facility] Comment on above: Performed By: #### L [id number] ####[facility] (BEAKER)[address] [place] [address] Immature granulocytes (Bld) [#/Vol] 0.07 10*3/uL Normal 0.00-0.20 [facility] Comment on above: Performed By: #### L [id number] ####[facility] (BEAKER)[address] [place] [address] Immature granulocytes/100 WBC (Bld) 0.6 % Normal 0.0-1.0 [facility] Comment on above: Performed By: #### L [id number] ####[facility] (BEAKER)[address] [place] [address] Lymphocytes (Bld) [#/Vol] 2.10 10*3/uL Normal 1.20-4.00 [facility] Comment on above: Performed By: #### L [id number] ####[facility] (BEAKER)[address] [place] [address] Lymphocytes/100 WBC (Bld) 18.2 % Low 20.0-45.0 [facility] Comment on above: Performed By: #### L [id number] ####[facility] [place] [address] MCH (RBC) [Entitic mass] 30.5 pg Normal 27.0-33.0 [facility] Comment on above: Performed By: #### L [id number] ####[facility] ([facility])[address] [place] [address] MCV (RBC) [Entitic vol] 93.2 fL Normal 82.0-98.0 [facility] Comment on above: Performed By: #### L [id number] ####[facility] [place] [address] Monocytes (Bld) [#/Vol] 0.88 10*3/uL Normal 0.10-1.00 [facility] Comment on above: Performed By: #### L [id number] ####[facility] (BEAKER)[address] [place] [address] Monocytes/100 WBC (Bld) 7.6 % Normal 5.0-12.0 [facility] Comment on above: Performed By: #### L [id number] ####[facility] (BEAKER)[address] [place] [address] Neutrophils (Bld) [#/Vol] 8.22 10*3/uL High 1.60-7.60 [facility] Comment on above: Performed By: #### L [id number] ####[facility] (BEAKER)[address] [facility] [place] [address] Neutrophils/100 WBC (Bld) 71.2 % Normal 40.0-72.0 [facility] Comment on above: Performed By: #### L [id number] ####[facility] (BEAKER)[address] [place] [address] NRBC (PER 100 WBCS) BY AUTOMATED COUNT 0.0 % Normal 0 [facility] Comment on above: Performed By: #### L [id number] ####[facility] (BEAKER)[address] [place] [address] PLATELETS (10*3/UL) IN BLOOD AUTOMATED COUNT 294 10*3/uL Normal 150-400 [facility] Comment on above: Performed By: #### L [id number] ####[facility] (BEAKER)[address] [place] [address] RBC (Bld) [#/Vol] 3.97 10*6/uL Low 4.20-5.70 [facility] Comment on above: Performed By: #### L [id number] ####[facility] (BEAKER)[address] [place] [address] WBC (Bld) [#/Vol] 11.54 10*3/uL High 4.00-10.60 [facility] Comment on above: Performed By: #### L [id number] ####[facility] ([facility])[address] [place] [address] Follow-Upon 06-22-2024 Follow-Up [id number] Jama 1970 M Date Provider Department Center 06/22/2024 [facility] CARD [facility] Heart[facility]AS Family History Problem Relation Age of Onset Breast cancer Mother Comments: age 53, METS to brain Heart disease Father Heart attack Father Comments: age 26 No Known Problems Sister Comments: half-sister Crohn's disease Daughter Comments: perforated bowel Family Status - Relation Status Age at Mother Father Sister Daughter Level of Service:85629 AL OFFICE/OUTPATIENT NEW HIGH MDM 60 MINUTES Reason for Visit and Comments: Cardiac evaluation for transplant [Other] - Follow for abnormal stress done 06/13/2024 Normal [facility] Labon 06-22-2024 Lab [id number] Jama 1970 M Date Provider Department Center 06/22/2024 2245-[facility] OPD LAB RESOURCE [facility] Family History Problem Relation Age of Onset Breast cancer Mother Comments: age 53, METS to brain Heart disease Father Heart attack Father Comments: age 26 No Known Problems Sister Comments: half-sister Crohn's disease Daughter Comments: perforated bowel Family Status - Relation Status Age at Mother Father Sister Daughter [facility] HISTOLOGY - TISSUE EXAMon LAB AP CASE REPORT Normal [facility] Comment on above: Result Comment: Surg ical Pathology Case: [id number] Authorizing Provider: Anya Henley MD Collected: 06/20/2024 1141 [facility]: 06/20/2024 1309 [facility] Pathologist: Carly Beard MD Specimen: Rectum, RECTUM POLYP Performed By: #### L [id number] ####[facility] ([facility] [place] [address] LAB AP CLINICAL INFORMATION Order Diagnoses [facility] Comment on above: Result Comment: Z12. 11 - Screen for colon cancer [ICD-10-CM] Performed By: #### L [id number] ####[facility] ([facility])[address] [place] [address] LAB AP GROSS DESCRIPTION A. Rectum. [facility] Comment on above: Result Comment: The [...] Toscano, student fellow Performed By: #### L [id number] ####[facility] ([facility] [place] [address] LAB AP MICROSCOPIC DESCRIPTION Microscopic examination performed. [facility] Comment on above: Performed By: #### L [id number] ####[facility] ([facility] [place] [address] LAB AP REPORT FINAL DIAGNOSIS NARRATIVE [facility] Comment on above: Result Comment: A. C olon, rectal polyp, polypectomy: - Fragments of colonic mucosa with early hyperplastic changes and lymphoid aggregate. - Negative for dysplasia. Performed By: #### L [id number] ####[facility] ([facility] [place] [address] HPon 06-20-2024 HP H&P reviewed. The patient was examined and there are no changes to the H&P. Here for surveillance colonoscopy with hx of multiple and large polyps in 2021 and poor prep. Normal [facility] NURSNOTEon 06-20-2024 NURSNOTE All positioning samaria rakesh removed pt remains supine. Normal [facility] POCT PERFUSION PANEL UNSOLIC ITED RESULTSon 06-20-2024 Glucose [Mass/Vol] 114 mg/dL High 70-105 [facility] Comment on above: Performed By: #### L [id number] ####[facility] ([facility] [place] [address] POCT BASE EXCESS Normal [facility] Comment on above: Performed By: #### L [id number] ####[facility] ([facility] [place] [address] POCT HCO3 Normal [facility] Comment on above: Performed By: #### L [id number] ####[facility] ([facility] [place] [address] POCT HEMATOCRIT Normal [facility] Comment on above: Performed By: #### L [id number] ####[facility] ([facility] [place] [address] PO[address] HEMOGLOB[address] Normal [facility] Comment on above: Performed By: #### L [id number] ####[facility] ([facility] [place] [address] POCT IONIZED CALCIUM Normal [facility] Comment on above: Performed By: #### L [id number] ####[facility] ([facility] [place] [address] POCT PCO2 Normal [facility] Comment on above: Performed By: #### L [id number] ####[facility] LAB (BEAKER)[address] [place] [address] POCT PH [facility] Comment on above: Performed By: #### L [id number] ####[facility] (BEAKER)[address] [place] [address] POCT PO2 [facility] Comment on above: Performed By: #### L [id number] ####[facility] (BEAKER)[address] [place] [address] POCT SO2 [facility] Comment on above: Performed By: #### L [id number] ####[facility] (BEAKER)[address] [place] [address] POCT SODIUM [facility] Comment on above: Performed By: #### L [id number] ####[facility] ([facility] [place] [address] POCT TOTAL CO2 [facility] Comment on above: Performed By: #### L [id number] ####[facility] (BEAKER)[address] [place] [address] Potassium [Moles/Vol] 4.4 mmol/L Normal 3.5-4.9 [facility] Comment on above: Performed By: #### L [id number] ####[facility] (BEAKER)[address] [place] [address] Prep for Procedureon 024 Prep for Procedure [id number] Evans Forte 1970 M Date Provider Department Center 06/20/2024 ANYA FERRARO [facility] PEDRONathaniel Family History Problem Relation Age of Onset Breast cancer Mother Comments: age 53, METS to brain Heart disease Father Heart attack Father Comments: age 26 No Known Problems Sister Comments: half-sister Crohn's disease Daughter Comments: perforated bowel Family Status - Relation Status Age at Mother Father Sister Daughter [facility] 36on 06-14-2024 36 Patient called TC [...] is needed. 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 Patient stated understanding and scheduled his TE Re-eval for 07/11/24 and asked to be added to the cancellation list for any sooner appointments on Tuesdays and . TC confirmed and sent patient, referring MD and dialysis unit a letter. [facility] Orders Onlyon 06-13-2024 Orders Only [id number] Evans Forte 1970 Provider Department Center 06/13/2024 ERMIAS MURRAY [facility] Family History Problem Relation Age of Onset Breast cancer Mother Comments: age 53 Heart disease Father Heart attack Father Comments: age 26 No Known Problems Sister Comments: half-sister Crohn's disease Daughter Comments: perforated bowel Family Status - Relation Status Age at Mother Father Sister Daughter [facility] Prep for Procedureon 024 Prep for Procedure [id number] Evans Forte 1970 Provider Department Center 06/13/2024 ANYA FERRARO [facility] [place] Family History Problem Relation Age of Onset Breast cancer Mother Comments: age 53, METS to brain Heart disease Father Heart attack Father Comments: age 26 No Known Problems Sister Comments: half-sister Crohn's disease Daughter Comments: perforated bowel Family Status - Relation Status Age at Mother Father Sister Daughter [facility] Follow-Upon 05-26-2024 Follow-Up [id number] Evans Forte 1970 Provider Department Center 05/26/2024 [facility] Family History Problem Relation Age of Onset Breast cancer Mother Comments: age 53 Heart disease Father Heart attack Father Comments: age 26 No Known Problems Sister Comments: half-sister Crohn's disease Daughter Comments: perforated bowel Family Status - Relation Status Age at Mother Father Sister Daughter Level of Service:65386 AL OFFICE/OUTPATIENT ESTABLISHED MOD MDM 30 MIN Reason for Visit and Comments: Follow-up [[id number]] - Lab results Normal [facility] HPon 05-26-2024 HP Subjective Patient ID: Evans Forte is a 54 y.o. male who presents for Follow-up (Lab results ). HPI 05.26.24 Pt here for office visit with his . Pt established with Dr Clay for hypogonadism, ED and pending Renal Transplant list. Pt is having wound care to right foot at this time. ESRD treated with Dialysis 3 x week locally in [place]. Pt labs reviewed: T Levels: 05/23/24 373 [...] Order fax to [place]. 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 No CP or SOB. No N/V/D. No abd/flank pain. Pt continues with better level of fatigue. 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 Plan: Follow up [facility] with Meds. 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 Urination: - amount of urine made: [...] previous fertility (more content not included)... Normal [facility] Orders Onlyon 05-24-2024 Orders Only [id number] Evans Forte 1970 M Date Provider Department Center 05/24/2024 LORETTA ACEVES [facility] Family History Problem Relation Age of Onset Breast cancer Mother Comments: age 53 Heart disease Father Heart attack Father Comments: age 26 No Known Problems Sister Comments: half-sister Crohn's disease Daughter Comments: perforated bowel Family Status - Relation Status Age at Mother Father Sister Daughter Normal [facility] CBC WITH AUTO DIFFERENTIALon 05-23-2024 Basophils (Bld) [#/Vol] 0.06 10*3/uL Normal 0.00-0.20 [facility] Comment on above: Performed By: #### L [id number] #### [facility] ([facility]) [address] [place] [address] Basophils/100 WBC (Bld) 0.5 % Normal 0.0-1.0 [facility] Comment on above: Performed By: #### L [id number] #### [facility] ([facility]) [address] [place] [address] Eosinophils (Bld) [#/Vol] 0.36 10*3/uL Normal 0.00-0.50 [facility] Comment on above: Performed By: #### L [id number] #### [facility] ([facility] [address] [place] [address] Eosinophils/100 WBC (Bld) 3.1 % Normal 0.0-6.0 [facility] Comment on above: Performed By: #### L [id number] #### [facility] [address] [place] [address] Erythrocyte distribution width (RBC) [Ratio] 13.7 % Normal 11.5-15.0 [facility] Comment on above: Performed By: #### L [id number] #### [facility] ([facility]) [address] [place] [address] ERYTHROCYTE MEAN CORPUSCULAR HEMOGLOBIN CONCENTRATION (G/DL) BY AUTOMATED 32.4 g/dL Normal 32.0-35.0 [facility] Comment on above: Performed By: #### L [id number] #### [facility] [address] [place] [address] Hematocrit (Bld) [Volume fraction] 41.7 % Normal 39.0-55.0 [facility] Comment on above: Performed By: #### L [id number] #### [facility] [address] [place] [place] [address] Hemoglobin (Bld) [Mass/Vol] 13.5 g/dL Normal 13.0-17.0 [facility] Comment on above: Performed By: #### L [id number] #### [facility] ([facility]) [address] [place] [address] Immature granulocytes (Bld) [#/Vol] 0.13 10*3/uL Normal 0.00-0.20 [facility] Comment on above: Performed By: #### L [id number] #### [facility] [address] [place] [address] Immature granulocytes/100 WBC (Bld) 1.1 % High 0.0-1.0 [facility] Comment on above: Performed By: #### L [id number] #### [facility] ([facility]) [address] [place] [address] Lymphocytes (Bld) [#/Vol] 1.92 10*3/uL Normal 1.20-4.00 [facility] Comment on above: Performed By: #### L [id number] #### [facility] ([facility]) [address] [place] [address] Lymphocytes/100 WBC (Bld) 16.7 % Low 20.0-45.0 [facility] Comment on above: Performed By: #### L [id number] #### [facility] ([facility]) [address] [place] [address] MCH (RBC) [Entitic mass] 30.1 pg Normal 27.0-33.0 [facility] Comment on above: Performed By: #### L [id number] #### [facility] ([facility]) [address] [place] [address] MCV (RBC) [Entitic vol] 93.1 fL Normal 82.0-98.0 [facility] Comment on above: Performed By: #### L [id number] #### [facility] ([facility]) [address] [place] [address] Monocytes (Bld) [#/Vol] 0.79 10*3/uL Normal 0.10-1.00 [facility] Comment on above: Performed By: #### L [id number] #### [facility] ([facility]) [address] [place] [address] Monocytes/100 WBC (Bld) 6.9 % Normal 5.0-12.0 [facility] Comment on above: Performed By: #### L [id number] #### [facility] ([facility]) [address] [place] [address] Neutrophils (Bld) [#/Vol] 8.25 10*3/uL High 1.60-7.60 [facility] Comment on above: Performed By: #### L [id number] #### [facility] ([facility]) [address] [place] [address] Neutrophils/100 WBC (Bld) 71.7 % Normal 40.0-72.0 [facility] Comment on above: Performed By: #### L [id number] #### [facility] ([facility]) [address] [place] [address] NRBC (PER 100 WBCS) BY AUTOMATED COUNT 0.0 % Normal 0 [facility] Comment on above: Performed By: #### L [id number] #### [facility] ([facility]) [address] [place] [address] PLATELETS (10*3/UL) IN BLOOD AUTOMATED COUNT 332 10*3/uL Normal 150-400 [facility] Comment on above: Performed By: #### L [id number] #### [facility] [address] [place] [address] RBC (Bld) [#/Vol] 4.48 10*6/uL Normal 4.20-5.70 [facility] Comment on above: Performed By: #### L [id number] #### [facility] ([facility]) [address] [place] [address] WBC (Bld) [#/Vol] 11.51 10*3/uL High 4.00-10.60 [facility] Comment on above: Performed By: #### L [id number] #### [facility] [address] [place] [address] COMPREHENSIVE METABOLIC PANE Nick 05-23-2024 Albumin [Mass/Vol] 4.5 g/dL Normal 3.5-5.7 [facility] Comment on above: Performed By: #### L [id number] ####[facility] ([facility] [place] [address] ALP [Catalytic activity/Vol] 123 U/L High 34-104 [facility] Comment on above: Performed By: #### L [id number] ####[facility] ([facility] [place] [address] ALT [Catalytic activity/Vol] 25 U/L Normal 7-52 [facility] Comment on above: Performed By: #### L [id number] ####[facility] ([facility]ER)[address] [place] [address] Anion gap [Moles/Vol] 15 mmol/L Normal 7-20 [facility] Comment on above: Performed By: #### L [id number] ####[facility] ([facility]AKER)[address] [place] [address] AST [Catalytic activity/Vol] 15 U/L Normal 13-39 [facility] Comment on above: Performed By: #### L [id number] ####[facility] ([facility])[address] [place] [address] Bilirubin [Mass/Vol] 0.6 mg/dL Normal 0.3-1.0 [facility] Comment on above: Performed By: #### L [id number] ####[facility] ([facility])[address] [place] [address] Calcium [Mass/Vol] 9.6 mg/dL Normal 8.6-10.3 [facility] Comment on above: Performed By: #### L [id number] ####[facility] (BEAKER)[address] [place] [address] Chloride [Moles/Vol] 98 mmol/L Normal 98-107 [facility] Comment on above: Performed By: #### L [id number] ####[facility] ([facility]ER)[address] [place] [address] CO2 [Moles/Vol] 30 mmol/L Normal 21-[address] [facility] Comment on above: Performed By: #### L [id number] ####[facility] ([facility])[address] [place] [address] Creatinine [Mass/Vol] 6.78 mg/dL High 0.70-1.30 [facility] Comment on above: Performed By: #### L [id number] ####[facility] (BEAKER)[address] [place] [address] GLOMERULAR FILTRATION RATE ML/MIN/1.73 SQ M.PREDICTED 9.1 mL/min/1.73m*2 Low >60.0 [facility] Comment on above: Result Comment: The [facility]???s estimated glomerular filtration rate (eGFR) will no [...] of individuals. Performed By: #### L [id number] ####[facility] ([facility])[address] [place] [address] Glucose [Mass/Vol] 161 mg/dL High 70-100 [facility] Comment on above: Performed By: #### L [id number] ####[facility] ([facility])[address] [place] [address] Potassium [Moles/Vol] 4.0 mmol/L Normal 3.5-5.1 [facility] Comment on above: Performed By: #### L [id number] ####[facility] ([facility])[address] [place] [address] Protein [Mass/Vol] 8.0 g/dL Normal 6.0-8.3 [facility] Comment on above: Performed By: #### L [id number] ####[facility] ([facility])[address] [place] [address] Sodium [Moles/Vol] 139 mmol/L Normal 136-145 [facility] Comment on above: Performed By: #### L [id number] ####[facility] ([facility])[address] [place] [address] Urea nitrogen [Mass/Vol] 41 mg/dL High 7-25 [facility] Comment on above: Performed By: #### L [id number] ####[facility] ([facility])[address] [place] [address] UREA NITROGEN/CREATININE (MASS RATIO) IN SER/PLAS 6.0 Normal [facility] Comment on above: Performed By: #### L [id number] ####[facility] ([facility])[address] [place] [address] ESTRADIOLon 05-23-2024 ESTRADIOL (PG/ML) IN SER/PLAS 5.0 pg/mL Low 27-52 [facility] Comment on above: Result Comment: FEMALES: Normally menstruating Luteal phase 60-232 Follicular phase 31-90 Midcycle phase 60-533 Postmenopausal (untreated) <138 Fulvestrant treatment will show an increased estradiol concentration with this methodology. Alternate methodologies are available upon request. Test Performed by [facility] [employer] [address] [place] [address] - Released 05/23/2024 12:54 Performed By: #### L [id number] ####[facility] [id number] [place] [address] Labon 05-23-2024 Lab [id number] Jama 1970 M Date Provider Department Center 05/23/2024 2244-[facility] RESOURCE [facility] Family History Problem Relation Age of Onset Breast cancer Mother Comments: age 53 Heart disease Father Heart attack Father Comments: age 26 No Known Problems Sister Comments: half-sister Crohn's disease Daughter Comments: perforated bowel Family Status - Relation Status Age at Mother Father Sister Daughter Normal [facility] PSA, SCREENINGon 05-23-2024 PROSTATE SPECIFIC AG (NG/ML) IN SER/PLAS 2.3 ng/mL Normal 0.4-4 [facility] Comment on above: Performed By: #### L [id number] ####[facility] (BEAKER)[address] [place] [address] TESTOSTERONEon 05-23-2024 TESTOSTERONE (NG/DL) IN SER/PLAS 373 ng/dL Normal 193-740 [facility] Comment on above: Result Comment: Test Performed by [facility] [employer] [address] [place] [address] - Released 05/23/2024 12:54 Performed By: #### L [id number] #### [facility] ([facility]AKER) [address] [place] [address] Refillon 05-02-2024 Refill [id number] Jama 1970 M Date Provider Department Center 05/02/2024 Pedro Pablo-[facility] Family History Problem Relation Age of Onset Breast cancer Mother Comments: age 53 Heart disease Father Heart attack Father Comments: age 26 No Known Problems Sister Comments: half-sister Crohn's disease Daughter Comments: perforated bowel Family Status - Relation Status Age at Mother Father Sister Daughter Reason for Visit and Comments: Med Refill [[id number]] [facility] 36on 02-22-2024 36 Called patient and [...] the results of his 1 year repeat [facility] 36 Patient would like update how often it was suggested to have a colonoscopy surveillance. He is working on becoming a kidney transplant donor. Last colonoscopy was done 06/2022. Please call to update with patient [phone]. Thank you This phone message was created by the Ambulatory float staff. If you need senior support analyst follow up regarding this patient, please make your appropriate clinic staff member aware. Thank you. [facility] 36on 02-09-2024 36 Patient called to [...] repeat. Patient verbalized understanding. Maria De Jesus Rutledge, RN [facility] Glucose Glucometer (BldC) [M ass/Vol]Ordered By: Gi Mondragon on 12-24-2023 Glucose [Mass/Vol] 207 mg/dL [facility] Comment on above: Random Glucose Refer ence Range is dependent on time and content of last meal. Glucose of more than 200 mg/dL in a nonstressed, ambulatory subject supports the diagnosis of Diabetes Mellitus. No Panel InformationOrdered By: Gi Mondragon on 12-24-2023 Bedside Glucose Comment Glu2: cleaned meter [facility] Basophils Auto (Bld) [#/Vol] Ordered By: Buddy Murguia on 11-23-2023 Basophils (Bld) [#/Vol] 0.1 10*3/uL 0.0-0.2 [facility] Basophils/100 WBC Auto (Bld) Ordered By: Buddy Murguia on 11-23-2023 Basophils/100 WBC (Bld) 0.7 % . [facility] Calcium [Mass/volume] in Ser um or PlasmaOrdered By: Buddy Murguia on 11-23-2023 Calcium [Mass/Vol] 9.3 mg/dL 8.6-10.3 [facility] Carbon dioxide, total [Moles /volume] in Serum or PlasmaOrdered By: Buddy Murguia on 11-23-2023 CO2 [Moles/Vol] 25.0 mmol/L 21.0-31.0 [facility] Chloride [Moles/volume] in S james or PlasmaOrdered By: Buddy Murguia on 11-23-2023 Chloride [Moles/Vol] 102 mmol/L 98-107 [facility] Creatinine [Mass/volume] in Serum or PlasmaOrdered By: Buddy Murguia on 11-23-2023 Creatinine [Mass/Vol] 10.07 mg/dL 0.70-1.30 [facility] Comment on above: Delta: 9.33 on 11/21-0616 Eosinophils Auto (Bld) [#/Vo l]Ordered By: Buddy Murguia on 11-23-2023 Eosinophils (Bld) [#/Vol] 0.4 10*3/uL 0.0-0.45 [facility] Eosinophils/100 WBC Auto (Bl d)Ordered By: Buddy Murguia on 11-23-2023 Eosinophils/100 WBC (Bld) 5.6 % . [facility] Erythrocyte distribution wid th Auto (RBC) [Ratio]Ordered By: Buddy Murguia on 11-23-2023 Erythrocyte distribution width (RBC) [Ratio] 15.7 % 12.0-14.8 [facility] Glucose Glucometer (BldC) [M ass/Vol]Ordered By: Amy Escudero on 11-23-2023 Glucose [Mass/Vol] 123 mg/dL [facility] Comment on above: Random Glucose Refer ence Range is dependent on time and content of last meal. Glucose of more than 200 mg/dL in a nonstressed, ambulatory subject supports the diagnosis of Diabetes Mellitus. Glucose [Mass/volume] in Ser um or PlasmaOrdered By: Buddy Murguia on 11-23-2023 Glucose [Mass/Vol] 94 mg/dL 70-100 [facility] Comment on above: ADA recommended refe rence rangeRandom Glucose Reference Range is dependent on time and content of last meal. Glucose of more than 200 mg/dL in a nonstressed, ambulatory subject supports the diagnosis of Diabetes Mellitus. Hematocrit Auto (Bld) [Volum e fraction]Ordered By: Buddy Murguia on 11-23-2023 Hematocrit (Bld) [Volume fraction] 35.2 % 38.8-50.0 [facility] Hemoglobin [Mass/volume] in BloodOrdered By: Buddy Murguia on 11-23-2023 Hemoglobin (Bld) [Mass/Vol] 11.3 g/dL 13.0-17.0 [facility] Leukocytes [#/volume] correc scott for nucleated erythrocytes in Blood by Automated counOrdered By: Buddy Murguia on 11-23-2023 WBC corrected for nucl RBC Auto (Bld) [#/Vol] 7.7 10*3/uL 4.1-10.5 [facility] Lymphocytes Auto (Bld) [#/Vo l]Ordered By: Buddy Murguia on 11-23-2023 Lymphocytes (Bld) [#/Vol] 1.6 10*3/uL 1.00-4.8 [facility] Lymphocytes/100 WBC Auto (Bl d)Ordered By: Buddy Murguia on 11-23-2023 Lymphocytes/100 WBC (Bld) 20.6 % . [facility] MCH Auto (RBC) [Entitic mass ]Ordered By: Buddy Murguia on 11-23-2023 MCH (RBC) [Entitic mass] 30.4 pg 27.5-35.2 [facility] MCHC Auto (RBC) [Mass/Vol]Or dered By: Buddy Murguia on 11-23-2023 MCHC (RBC) [Mass/Vol] 32.2 g/dL 32.5-35.6 [facility] MCV Auto (RBC) [Entitic vol] Ordered By: Buddy Murguia on 11-23-2023 MCV (RBC) [Entitic vol] 94.5 fL 83.5-101 [facility] Magnesium [Mass/volume] in S james or PlasmaOrdered By: Buddy Murguia on 11-23-2023 Magnesium [Mass/Vol] 2.7 mg/dL 1.9-2.7 [facility] Monocytes Auto (Bld) [#/Vol] Ordered By: Buddy Murguia on 11-23-2023 Monocytes (Bld) [#/Vol] 0.8 10*3/uL 0.0-0.8 [facility] Monocytes/100 WBC Auto (Bld) Ordered By: Buddy Murguia on 11-23-2023 Monocytes/100 WBC (Bld) 9.8 % . [facility] Neutrophils Auto (Bld) [#/Vo l]Ordered By: Buddy Murguia on 11-23-2023 Neutrophils (Bld) [#/Vol] 4.9 10*3/uL 1.8-7.7 [facility] Neutrophils/100 WBC Auto (Bl d)Ordered By: Buddy Murguia on 11-23-2023 Neutrophils/100 WBC (Bld) 63.3 % . [facility] No Panel InformationOrdered By: Buddy Murguia on 11-23-2023 Estimated GFR (CKD-EPI) 5.666 mL/Min [facility] Creatinine Clearance (Chem 13.08 [facility] Nucleated erythrocytes [Pres ence] in Blood by Automated countOrdered By: Buddy Murguia on 11-23-2023 Nucleated RBC Auto Ql (Bld) 0.0 /100{WBC} 0-0.5 [facility] Platelet mean volume Auto (B ld) [Entitic vol]Ordered By: Buddy Murguia on 11-23-2023 Platelet mean volume (Bld) [Entitic vol] 8.3 fL 6.6-10.1 [facility] Platelets Auto (Bld) [#/Vol] Ordered By: Buddy Murguia on 11-23-2023 Platelets (Bld) [#/Vol] 248 10*3/uL 150-450 [facility] Potassium [Moles/volume] in Serum or PlasmaOrdered By: Buddy Murguia on 11-23-2023 Potassium [Moles/Vol] 4.5 mmol/L 3.5-5.1 [facility] RBC Auto (Bld) [#/Vol]Ordere d By: Buddy Murguia on 11-23-2023 RBC (Bld) [#/Vol] 3.73 10*6/uL 3.90-5.60 [facility] Serum or plasma anion gap de terminationOrdered By: Buddy Murguia on 11-23-2023 Anion gap [Moles/Vol] 16.5 mmol/L 6.0-15.0 [facility] Sodium [Moles/volume] in Ser um or PlasmaOrdered By: Buddy Murguia on 11-23-2023 Sodium [Moles/Vol] 139 mmol/L 136-145 [facility] Urea nitrogen [Mass/volume] in Serum or PlasmaOrdered By: Buddy Murguia on 11-23-2023 Urea nitrogen [Mass/Vol] 74 mg/dL 7-25 [facility] WBC Auto (Bld) [#/Vol]Ordere d By: Buddy Murguia on 11-23-2023 WBC (Bld) [#/Vol] 7.7 10*3/uL 4.1-10.5 [facility] Prealbumin [Mass/volume] in Serum or PlasmaOrdered By: Yasmin Winchester on 11-22-2023 Prealbumin [Mass/Vol] 28.9 mg/dL 17.0-34.0 [facility] Automated erythrocytes count in urine sediment (number/area)Ordered By: Chong Dixon on 11-21-2023 RBC Auto (Urine sed) [#/Area] 1-2 [HPF] 0-4 [facility] Automated leukocytes count i n urine sediment (number/area)Ordered By: Chong Dixon on 11-21-2023 WBC Auto (Urine sed) [#/Area] 20-49 [HPF] 0-4 [facility] Bilirubin Test strip Ql (U)O rdered By: Chong Dixon on 11-21-2023 Bilirubin Ql (U) Negative Negative [facility] Color Auto (U)Ordered By: Tavon Dixon on 11-21-2023 Color (U) Yellow Yellow [facility] Glucose mean value [Mass/vol ume] in Blood Estimated from glycated hemoglobinOrdered By: Buddy Murguia on 11-21-2023 Average glucose Estimated from glycated hemoglobin (Bld) [Mass/Vol] 114 mg/dL [facility] Hemoglobin A1c percentageOrd ered By: Buddy Murguia on 11-21-2023 HbA1c (Bld) [Mass fraction] 5.6 % 4.3-5.6 [facility] Comment on above: Increased risk for d iabetes: 5.7 - 6.4diabetes: >6.4glycemic control for adults with diabetes: <7.0 Ketones Auto test strip (U) [Mass/Vol]Ordered By: Chong Dixon on 11-21-2023 Ketones (U) [Mass/Vol] Trace Negative [facility] Laboratory - UrinalysisOrder ed By: Chong Dxion on 11-21-2023 Hyaline casts LM Ql (Urine sed) 9-19 [LPF] 0-8 [facility] Nitrite Test strip Ql (U)Ord ered By: Chong Dixon on 11-21-2023 Nitrite Ql (U) Negative Negative [facility] Protein Auto test strip (U) [Mass/Vol]Ordered By: Chong Dixon on 11-21-2023 Protein (U) [Mass/Vol] 300 mg/dL Negative [facility] Specific gravity Auto test s trip (U) [Rel density]Ordered By: Chong Dixon on 11-21-2023 Specific gravity (U) [Rel density] 1.021 1.001-1.030 [facility] Squamous epithelial cells de tection in urine sediment by light microscopyOrdered By: Chong Dixon on 11-21-2023 Epithelial cells.squamous LM Ql (Urine sed) 0-1 [HPF] 0-2 [facility] Urine bacteria detection by automated methodOrdered By: Chong Dixon on 11-21-2023 Bacteria Auto Ql (U) None seen None Seen [facility] Urine clarity by refractomet ry automatedOrdered By: Chong Dixon on 11-21-2023 Clarity Refractometry automated (U) Cloudy Clear [facility] Urine culture routineOrdered By: Chong Dixon on 11-21-2023 Bacteria identified Cx Nom (U) No Growth 2 Days [facility] Urine glucose measurement by automated test strip (mass/volume)Ordered By: Chong Dixon on 11-21-2023 Glucose Auto test strip (U) [Mass/Vol] Normal mg/dL Normal [facility] Urine hemoglobin detection b y automated test stripOrdered By: Chong Dixon on 11-21-2023 Hemoglobin Auto test strip Ql (U) 2+ Negative [facility] Urine leukocyte esterase det ection by automated test stripOrdered By: Chong Dixon on 11-21-2023 Leukocyte esterase Auto test strip Ql (U) 2+ Negative [facility] Urobilinogen Auto test strip (U) [Mass/Vol]Ordered By: Chong Dixon on 11-21-2023 Urobilinogen (U) [Mass/Vol] Normal mg/dL Normal [facility] Yeast detection in urine sed iment by light microscopyOrdered By: Chong Dixon on 11-21-2023 Yeast LM Ql (Urine sed) None seen [HPF] None Seen [facility] pH Auto test strip (U)Ordere d By: Chong Dixon on 11-21-2023 pH (U) 5.0 [pH] 5.0-9.0 [facility] Activated partial thrombopla stin time (aPTT) in platelet poor plasma by coagulation aOrdered By: Chong Dixon on 11-20-2023 aPTT Coag (PPP) [Time] 31.0 s 25.1-36.5 [facility] Comment on above: A hematocrit value g reater than 55% may lead to inaccurate results in coagulation testing. Patients having hematocrit values >55% require a special collection tube for coagulation studies. Please contact the laboratory at [phone] for redraw instructions. Alanine aminotransferase [En zymatic activity/volume] in Serum or PlasmaOrdered By: Chong Dixon on 11-20-2023 ALT [Catalytic activity/Vol] 25 U/L 7-52 [facility] Albumin [Mass/volume] in Ser um or Plasma by Bromocresol green (BCG) dye binding methoOrdered By: Chong Dixon on 11-20-2023 Albumin BCG dye [Mass/Vol] 4.4 g/dL 3.5-5.7 [facility] Alkaline phosphatase [Enzyma tic activity/volume] in Serum or PlasmaOrdered By: Chong Dixon on 11-20-2023 ALP [Catalytic activity/Vol] 51 U/L 34-104 [facility] Anisocytosis LM Ql (Bld)Orde red By: Chong Dixon on 11-20-2023 Anisocytosis Ql (Bld) Moderate [facility] Aspartate aminotransferase [ Enzymatic activity/volume] in Serum or PlasmaOrdered By: Chong Dixon on 11-20-2023 AST [Catalytic activity/Vol] 24 U/L 13-39 [facility] Bacterial blood cultureOrder ed By: Chong Dixon on 11-20-2023 Bacteria identified Cx Nom (Bld) NO GROWTH 5 DAYS [facility] Basophils Auto (Bld) [#/Vol] Ordered By: Chong Dixon on 11-20-2023 Basophils (Bld) [#/Vol] N/A [facility] Basophils/100 WBC Auto (Bld) Ordered By: Chong Dixon on 11-20-2023 Basophils/100 WBC (Bld) N/A [facility] Bilirubin.total [Mass/volume ] in Serum or PlasmaOrdered By: Chong Dixon on 11-20-2023 Bilirubin [Mass/Vol] 0.6 mg/dL 0.3-1.0 [facility] C reactive protein [Mass/vol ume] in Serum or PlasmaOrdered By: Chong Dixon on 11-20-2023 CRP [Mass/Vol] 3.9 mg/dL 0.0-0.5 [facility] COVID-19 Detected/Not Detect edOrdered By: Chong Dixon on 11-20-2023 SARS-CoV-2 (COVID-19) RNA SHAY+non-probe Ql (Nph) Not detected Not Detecte [facility] Comment on above: This is a duplicate RP2.1 COVID (PCR) result to be used for statistical tracking purpose only. Calcium [Mass/volume] in Ser um or PlasmaOrdered By: Chong Dixon on 11-20-2023 Calcium [Mass/Vol] 8.9 mg/dL 8.6-10.3 [facility] Carbon dioxide, total [Moles /volume] in Serum or PlasmaOrdered By: Chong Dixon on 11-20-2023 CO2 [Moles/Vol] 21.9 mmol/L 21.0-31.0 [facility] Chloride [Moles/volume] in S james or PlasmaOrdered By: Chong Dixon on 11-20-2023 Chloride [Moles/Vol] 103 mmol/L 98-107 [facility] Creatine kinase [Enzymatic a ctivity/volume] in Serum or PlasmaOrdered By: Chong Dixon on 11-20-2023 CK [Catalytic activity/Vol] 135 U/L 30-223 [facility] Creatinine [Mass/volume] in Serum or PlasmaOrdered By: Chong Dixon on 11-20-2023 Creatinine [Mass/Vol] 6.29 mg/dL 0.70-1.30 [facility] Eosinophils Auto (Bld) [#/Vo l]Ordered By: Chong Dixon on 11-20-2023 Eosinophils (Bld) [#/Vol] N/A [facility] Eosinophils/100 WBC Auto (Bl d)Ordered By: Chong Dixon on 11-20-2023 Eosinophils/100 WBC (Bld) N/A [facility] Erythrocyte distribution wid th Auto (RBC) [Ratio]Ordered By: Chong Dixon on 11-20-2023 Erythrocyte distribution width (RBC) [Ratio] 16.1 % 12.0-14.8 [facility] Erythrocyte sedimentation ra te by Photometric methodOrdered By: Chong Dixon on 11-20-2023 ESR Photometric method (Bld) [Velocity] 66 mm/hr 0-19 [facility] Globulin Calc (S) [Mass/Vol] Ordered By: Chong Dixon on 11-20-2023 Globulin (S) [Mass/Vol] 3.9 g/dL [facility] Glucose Glucometer (BldC) [M ass/Vol]Ordered By: Chnog Dixon on 11-20-2023 Glucose [Mass/Vol] 111 mg/dL [facility] Comment on above: Random Glucose Refer ence Range is dependent on time and content of last meal. Glucose of more than 200 mg/dL in a nonstressed, ambulatory subject supports the diagnosis of Diabetes Mellitus. Glucose [Mass/volume] in Ser um or PlasmaOrdered By: Chong Dixon on 11-20-2023 Glucose [Mass/Vol] 121 mg/dL 70-100 [facility] Comment on above: ADA recommended refe rence rangeRandom Glucose Reference Range is dependent on time and content of last meal. Glucose of more than 200 mg/dL in a nonstressed, ambulatory subject supports the diagnosis of Diabetes Mellitus. Hematocrit Auto (Bld) [Volum e fraction]Ordered By: Chong Dixon on 11-20-2023 Hematocrit (Bld) [Volume fraction] 38.8 % 38.8-50.0 [facility] Hemoglobin [Mass/volume] in BloodOrdered By: Chong Dixon on 11-20-2023 Hemoglobin (Bld) [Mass/Vol] 12.5 g/dL 13.0-17.0 [facility] INR in Platelet poor plasma by Coagulation assayOrdered By: Chong Dixon on 11-20-2023 INR Coag (PPP) [Relative time] 1.1 {INR} [facility] Comment on above: INR Therapeutic Rang e [...] in Se rum or PlasmaOrdered By: Chong Dixon on 11-20-2023 Lactate [Moles/Vol] 1.7 mmol/L 0.5-2.2 [facility] Leukocytes [#/volume] correc scott for nucleated erythrocytes in Blood by Automated counOrdered By: Chong Dixon on 11-20-2023 WBC corrected for nucl RBC Auto (Bld) [#/Vol] 19.5 10*3/uL 4.1-10.5 [facility] Lymphocytes Auto (Bld) [#/Vo l]Ordered By: Chong Dixon on 11-20-2023 Lymphocytes (Bld) [#/Vol] N/A [facility] Lymphocytes/100 WBC Auto (Bl d)Ordered By: Chong Dixon on 11-20-2023 Lymphocytes/100 WBC (Bld) N/A [facility] Lymphocytes/100 WBC Manual c nt (Bld)Ordered By: Chong Dixon on 11-20-2023 Lymphocytes/100 WBC (Bld) 1 % 18-42 [facility] MCH Auto (RBC) [Entitic mass ]Ordered By: Chong Dixon on 11-20-2023 MCH (RBC) [Entitic mass] 30.2 pg 27.5-35.2 [facility] MCHC Auto (RBC) [Mass/Vol]Or dered By: Chong Dixon on 11-20-2023 MCHC (RBC) [Mass/Vol] 32.2 g/dL 32.5-35.6 [facility] MCV Auto (RBC) [Entitic vol] Ordered By: Chong Dixon on 11-20-2023 MCV (RBC) [Entitic vol] 94.0 fL 83.5-101 [facility] Magnesium [Mass/volume] in S james or PlasmaOrdered By: Chong Dixon on 11-20-2023 Magnesium [Mass/Vol] 1.6 mg/dL 1.9-2.7 [facility] Microcytes LM Ql (Bld)Ordere d By: Chong Dixon on 11-20-2023 Microcytes Ql (Bld) Slight [facility] Monocyte distribution width [Entitic volume] in Blood by AutomatedOrdered By: Chong Dixon on 11-20-2023 Monocyte distribution width Auto (Bld) [Entitic vol] 25.63 % 0.00-20.00 [facility] Comment on above: The predictive value of MDW for identifying sepsis in patients with hematological abnormalities has not been established Monocytes Auto (Bld) [#/Vol] Ordered By: Chong Dixon on 11-20-2023 Monocytes (Bld) [#/Vol] N/A [facility] Monocytes/100 WBC Auto (Bld) Ordered By: Chong Dixon on 11-20-2023 Monocytes/100 WBC (Bld) N/A [facility] Monocytes/100 WBC Manual cnt (Bld)Ordered By: Chong Dixon on 11-20-2023 Monocytes/100 WBC (Bld) 4 % 2-11 [facility] Natriuretic peptide B [Mass/ Vol]Ordered By: Chong Dixon on 11-20-2023 Natriuretic peptide B (Bld) [Mass/Vol] 15.0 pg/mL 5-100 [facility] Neutrophils Auto (Bld) [#/Vo l]Ordered By: Chnog Dixon on 11-20-2023 Neutrophils (Bld) [#/Vol] N/A [facility] Neutrophils/100 WBC Auto (Bl d)Ordered By: Chong Dixon on 11-20-2023 Neutrophils/100 WBC (Bld) N/A [facility] No Panel InformationOrdered By: Chong Dixon on 11-20-2023 Estimated GFR (CKD-EPI) 9.967 mL/Min [facility] Creatinine Clearance (Chem 21.03 [facility] Nucleated erythrocytes [Pres ence] in Blood by Automated countOrdered By: Chong Dixon on 11-20-2023 Nucleated RBC Auto Ql (Bld) N/A [facility] Platelet adequacy [Presence] in Blood by Light microscopyOrdered By: Chong Dixon on 11-20-2023 Platelets LM Ql (Bld) Normal Normal [facility] Platelet mean volume Auto (B ld) [Entitic vol]Ordered By: Chong Dixon on 11-20-2023 Platelet mean volume (Bld) [Entitic vol] 8.0 fL 6.6-10.1 [facility] Platelet morphology finding [Identifier] in BloodOrdered By: Chong Dixon on 11-20-2023 Platelet morphology finding Nom (Bld) Normal Normal [facility] Platelets Auto (Bld) [#/Vol] Ordered By: Chong Dixon on 11-20-2023 Platelets (Bld) [#/Vol] 280 10*3/uL 150-450 [facility] Potassium [Moles/volume] in Serum or PlasmaOrdered By: Chong Dixon on 11-20-2023 Potassium [Moles/Vol] 4.2 mmol/L 3.5-5.1 [facility] Protein [Mass/volume] in Ser um or PlasmaOrdered By: Chong Dixon on 11-20-2023 Protein [Mass/Vol] 8.3 g/dL 6.4-8.9 [facility] Prothrombin time (PT)Ordered By: Chong Dixon on 11-20-2023 PT Coag (PPP) [Time] 12.8 s 9.0-12.9 [facility] Comment on above: A hematocrit value g reater than 55% may lead to inaccurate results in coagulation testing. Patients having hematocrit values >55% require a special collection tube for coagulation studies. Please contact the laboratory at [phone] for redraw instructions. RBC Auto (Bld) [#/Vol]Ordere d By: Chong Dixon on 11-20-2023 RBC (Bld) [#/Vol] 4.12 10*6/uL 3.90-5.60 [facility] RBC morphologyOrdered By: Tavon Dixon on 11-20-2023 RBC morphology finding Nom (Bld) N/A [facility] Red blood cell stomatocyte d etectionOrdered By: Chong Dixon on 11-20-2023 Stomatocytes LM Ql (Bld) Slight [facility] Respiratory pathogens DNA an d RNA panel - Nasopharynx by SHAY with non-probe detectionOrdered By: Chong Dixon on 11-20-2023 Respiratory pathogens DNA and RNA panel SHAY+non-probe (Nph) [facility] Segmented neutrophils/100 WB C Manual cnt (Bld)Ordered By: Chong Dixon on 11-20-2023 Segmented neutrophils/100 WBC (Bld) 94 % 50-70 [facility] Serum or plasma albumin/glob ulin mass ratioOrdered By: Chong Dixon on 11-20-2023 Albumin/Globulin [Mass ratio] 1.1 {ratio} [facility] Serum or plasma anion gap de terminationOrdered By: Chong Dixon on 11-20-2023 Anion gap [Moles/Vol] 17.3 mmol/L 6.0-15.0 [facility] Sodium [Moles/volume] in Ser um or PlasmaOrdered By: Chong Dixon on 11-20-2023 Sodium [Moles/Vol] 138 mmol/L 136-145 [facility] Thyrotropin [Units/volume] i n Serum or PlasmaOrdered By: Chong Dixon on 11-20-2023 TSH Qn 1.36 m[IU]/L 0.45-5.33 [facility] Troponin I.cardiac [Mass/vol ume] in Serum or Plasma by Detection limit <= 0.01 ng/Ordered By: Chong Dixon on 11-20-2023 Troponin I.cardiac DL <= 0.01 ng/mL [Mass/Vol] 15.2 pg/mL 0.0-20.0 [facility] Urea nitrogen [Mass/volume] in Serum or PlasmaOrdered By: Chong Dixon on 11-20-2023 Urea nitrogen [Mass/Vol] 32 mg/dL 7-25 [facility] Variant lymphocytes/100 WBC Manual cnt (Bld)Ordered By: Chong Dixon on 11-20-2023 Variant lymphocytes/100 WBC (Bld) 1 % 0-12 [facility] WBC Auto (Bld) [#/Vol]Ordere d By: Chong Dixon on 11-20-2023 WBC (Bld) [#/Vol] 19.5 10*3/uL 4.1-10.5 [facility] Glucose Glucometer (BldC) [M ass/Vol]Ordered By: Flakito High on 10-27-2023 Glucose [Mass/Vol] 106 mg/dL [facility] Comment on above: Random Glucose Refer ence Range is dependent on time and content of last meal. Glucose of more than 200 mg/dL in a nonstressed, ambulatory subject supports the diagnosis of Diabetes Mellitus. Hematocrit Auto (Bld) [Volum e fraction]Ordered By: Tyshawn Gardner on 10-27-2023 Hematocrit (Bld) [Volume fraction] 31.6 % 38.8-50.0 [facility] Hemoglobin [Mass/volume] in BloodOrdered By: Tyshawn Gardner on 10-27-2023 Hemoglobin (Bld) [Mass/Vol] 10.3 g/dL 13.0-17.0 [facility] No Panel InformationOrdered By: Flakito High on 10-27-2023 Bedside Glucose Comment Glu2: cleaned meter [facility] Potassium [Moles/volume] in Serum or PlasmaOrdered By: Tyshawn Gardner on 10-27-2023 Potassium [Moles/Vol] 4.5 mmol/L 3.5-5.1 [facility] Basic metabolic 1998 panelon 10-18-2023 Anion gap [Moles/Vol] 19.8 mmol/L High 6.0 - 15.0 [facility] Calcium [Mass/Vol] 9.2 mg/dL 8.6 - 10. 3 mg/dL [facility] Chloride [Moles/Vol] 103 mmol/L 98 - 10 7 mmol/L [facility] CO2 [Moles/Vol] 22.6 mmol/L 21.0 - 31.0 mmol/L [facility] Creatinine (U) [Mass/Vol] 9.63 mg/dL High 0.70 - 1.30 mg/dL [facility] GFR/1.73 sq M.predicted MDRD (S/P/Bld) [Vol rate/Area] 5.979 mL/min/{1.73_m2} [facility] Glucose [Mass/Vol] 105 mg/dL High 70 - 100 mg/dL [facility] Comment on above: Random Glucose Refer ence Range is dependent on time and content of last meal. Glucose of more than 200 mg/dL in a nonstressed, ambulatory subject supports the diagnosis of Diabetes Mellitus. ADA recommended reference range Interpretation and review of laboratory results Abnormal [facility] Potassium [Moles/Vol] 4.4 mmol/L 3.5 - 5.1 mmol/L [facility] Sodium [Moles/Vol] 141 mmol/L 136 - 145 mmol/L [facility] Urea nitrogen [Mass/Vol] 67 mg/dL High 7 - 25 mg/dL [facility] Basophils Auto (Bld) [#/Vol] Ordered By: Flakito High on 10-18-2023 Basophils (Bld) [#/Vol] 0.1 10*3/uL 0.0-0.2 [facility] Basophils/100 WBC Auto (Bld) Ordered By: Flakito High on 10-18-2023 Basophils/100 WBC (Bld) 0.9 % . [facility] Calcium [Mass/volume] in Ser um or PlasmaOrdered By: Flakito High on 10-18-2023 Calcium [Mass/Vol] 9.2 mg/dL 8.6-10.3 [facility] Carbon dioxide, total [Moles /volume] in Serum or PlasmaOrdered By: Flakiot High on 10-18-2023 CO2 [Moles/Vol] 22.6 mmol/L 21.0-31.0 [facility] Chloride [Moles/volume] in S james or PlasmaOrdered By: Flakito High on 10-18-2023 Chloride [Moles/Vol] 103 mmol/L 98-107 [facility] Creatinine [Mass/volume] in Serum or PlasmaOrdered By: Flakito High on 10-18-2023 Creatinine [Mass/Vol] 9.63 mg/dL 0.70-1.30 [facility] Eosinophils Auto (Bld) [#/Vo l]Ordered By: Flakito High on 10-18-2023 Eosinophils (Bld) [#/Vol] 0.5 10*3/uL 0.0-0.45 [facility] Eosinophils/100 WBC Auto (Bl d)Ordered By: Flakito High on 10-18-2023 Eosinophils/100 WBC (Bld) 4.2 % . [facility] Erythrocyte distribution wid th Auto (RBC) [Ratio]Ordered By: Flakito High on 10-18-2023 Erythrocyte distribution width (RBC) [Ratio] 15.5 % 12.0-14.8 [facility] Glucose [Mass/volume] in Ser um or PlasmaOrdered By: Flakito High on 10-18-2023 Glucose [Mass/Vol] 105 mg/dL 70-100 [facility] Comment on above: ADA recommended refe rence rangeRandom Glucose Reference Range is dependent on time and content of last meal. Glucose of more than 200 mg/dL in a nonstressed, ambulatory subject supports the diagnosis of Diabetes Mellitus. Hematocrit Auto (Bld) [Volum e fraction]Ordered By: Flakito High on 10-18-2023 Hematocrit (Bld) [Volume fraction] 32.0 % 38.8-50.0 [facility] Hemoglobin [Mass/volume] in BloodOrdered By: Flakito High on 10-18-2023 Hemoglobin (Bld) [Mass/Vol] 10.6 g/dL 13.0-17.0 [facility] Leukocytes [#/volume] correc scott for nucleated erythrocytes in Blood by Automated counOrdered By: Flakito High on 10-18-2023 WBC corrected for nucl RBC Auto (Bld) [#/Vol] 10.8 10*3/uL 4.1-10.5 [facility] Lymphocytes Auto (Bld) [#/Vo l]Ordered By: Flakito High on 10-18-2023 Lymphocytes (Bld) [#/Vol] 1.4 10*3/uL 1.00-4.8 [facility] Lymphocytes/100 WBC Auto (Bl d)Ordered By: Flakito High on 10-18-2023 Lymphocytes/100 WBC (Bld) 12.5 % . [facility] MCH Auto (RBC) [Entitic mass ]Ordered By: Flakito High on 10-18-2023 MCH (RBC) [Entitic mass] 31.2 pg 27.5-35.2 [facility] MCHC Auto (RBC) [Mass/Vol]Or dered By: Flakito High on 10-18-2023 MCHC (RBC) [Mass/Vol] 33.2 g/dL 32.5-35.6 [facility] MCV Auto (RBC) [Entitic vol] Ordered By: Flakito High on 10-18-2023 MCV (RBC) [Entitic vol] 93.8 fL 83.5-101 [facility] Monocytes Auto (Bld) [#/Vol] Ordered By: Flakito High on 10-18-2023 Monocytes (Bld) [#/Vol] 0.8 10*3/uL 0.0-0.8 [facility] Monocytes/100 WBC Auto (Bld) Ordered By: Flakito High on 10-18-2023 Monocytes/100 WBC (Bld) 7.8 % . [facility] Neutrophils Auto (Bld) [#/Vo l]Ordered By: Flakito High on 10-18-2023 Neutrophils (Bld) [#/Vol] 8.1 10*3/uL 1.8-7.7 [facility] Neutrophils/100 WBC Auto (Bl d)Ordered By: Flakito High on 10-18-2023 Neutrophils/100 WBC (Bld) 74.6 % . [facility] No Panel InformationOrdered By: Flakito High on 10-18-2023 Estimated GFR (CKD-EPI) 5.979 mL/Min [facility] Creatinine Clearance (Chem N/A [facility] Nucleated erythrocytes [Pres ence] in Blood by Automated countOrdered By: Falkito High on 10-18-2023 Nucleated RBC Auto Ql (Bld) 0.1 /100{WBC} 0-0.5 [facility] Platelet mean volume Auto (B ld) [Entitic vol]Ordered By: Flakito High on 10-18-2023 Platelet mean volume (Bld) [Entitic vol] 7.4 fL 6.6-10.1 [facility] Platelets Auto (Bld) [#/Vol] Ordered By: Flakito High on 10-18-2023 Platelets (Bld) [#/Vol] 391 10*3/uL 150-450 [facility] Potassium [Moles/volume] in Serum or PlasmaOrdered By: Flakito High on 10-18-2023 Potassium [Moles/Vol] 4.4 mmol/L 3.5-5.1 [facility] RBC Auto (Bld) [#/Vol]Ordere d By: Flakito High on 10-18-2023 RBC (Bld) [#/Vol] 3.41 10*6/uL 3.90-5.60 [facility] Serum or plasma anion gap de terminationOrdered By: Flakito High on 10-18-2023 Anion gap [Moles/Vol] 19.8 mmol/L 6.0-15.0 [facility] Sodium [Moles/volume] in Ser um or PlasmaOrdered By: Flakito High on 10-18-2023 Sodium [Moles/Vol] 141 mmol/L 136-145 [facility] Urea nitrogen [Mass/volume] in Serum or PlasmaOrdered By: Flakito High on 10-18-2023 Urea nitrogen [Mass/Vol] 67 mg/dL 7-25 [facility] WBC Auto (Bld) [#/Vol]Ordere d By: Flakito High on 10-18-2023 WBC (Bld) [#/Vol] 10.8 10*3/uL 4.1-10.5 [facility] Alanine aminotransferase [En zymatic activity/volume] in Serum or PlasmaOrdered By: Chintan Sweet on 09-25-2023 ALT [Catalytic activity/Vol] 22 U/L 7-52 [facility] Albumin [Mass/volume] in Ser um or Plasma by Bromocresol green (BCG) dye binding methoOrdered By: Chintan Sweet on 09-25-2023 Albumin BCG dye [Mass/Vol] 4.1 g/dL 3.5-5.7 [facility] Alkaline phosphatase [Enzyma tic activity/volume] in Serum or PlasmaOrdered By: Chintan Sweet on 09-25-2023 ALP [Catalytic activity/Vol] 40 U/L 34-104 [facility] Aspartate aminotransferase [ Enzymatic activity/volume] in Serum or PlasmaOrdered By: Chintan Sweet on 09-25-2023 AST [Catalytic activity/Vol] 22 U/L 13-39 [facility] Basophils Auto (Bld) [#/Vol] Ordered By: Chintan Sweet on 09-25-2023 Basophils (Bld) [#/Vol] 0.1 10*3/uL 0.0-0.2 [facility] Basophils/100 WBC Auto (Bld) Ordered By: Chintan Sweet on 09-25-2023 Basophils/100 WBC (Bld) 1.1 % . [facility] Bilirubin.total [Mass/volume ] in Serum or PlasmaOrdered By: Chintan Sweet on 09-25-2023 Bilirubin [Mass/Vol] 0.3 mg/dL 0.3-1.0 [facility] COVID CepheidOrdered By: Joyce Sweet on 09-25-2023 SARS-CoV-2 (COVID-19) Ab IA Ql Negative Negative [facility] Comment on above: This is a duplicate [facility] CoV-2/Flu/RSV Plus RNA by RT-PCR result to be used for statistical tracking purpose only. SARS-CoV-2 (COVID-19) RNA SHAY+probe Ql (Unsp spec) [facility] SARS-CoV-2 (COVID-19) RNA SHAY+probe Ql (Unsp spec) [facility] Calcium [Mass/volume] in Ser um or PlasmaOrdered By: Chintan Sweet on 09-25-2023 Calcium [Mass/Vol] 8.6 mg/dL 8.6-10.3 [facility] Carbon dioxide, total [Moles /volume] in Serum or PlasmaOrdered By: Chintan Sweet on 09-25-2023 CO2 [Moles/Vol] 22.6 mmol/L 21.0-31.0 [facility] Chloride [Moles/volume] in S james or PlasmaOrdered By: Chintan Sweet on 09-25-2023 Chloride [Moles/Vol] 102 mmol/L 98-107 [facility] Creatinine [Mass/volume] in Serum or PlasmaOrdered By: Chintan Sweet on 09-25-2023 Creatinine [Mass/Vol] 5.80 mg/dL 0.70-1.30 [facility] Eosinophils Auto (Bld) [#/Vo l]Ordered By: Chintan Sweet on 09-25-2023 Eosinophils (Bld) [#/Vol] 0.4 10*3/uL 0.0-0.45 [facility] Eosinophils/100 WBC Auto (Bl d)Ordered By: Chintan Sweet on 09-25-2023 Eosinophils/100 WBC (Bld) 3.4 % . [facility] Erythrocyte distribution wid th Auto (RBC) [Ratio]Ordered By: Chintan Sweet on 09-25-2023 Erythrocyte distribution width (RBC) [Ratio] 14.7 % 12.0-14.8 [facility] Globulin Calc (S) [Mass/Vol] Ordered By: Chintan Sweet on 09-25-2023 Globulin (S) [Mass/Vol] 3.7 g/dL [facility] Glucose [Mass/volume] in Ser um or PlasmaOrdered By: Chintan Sweet on 09-25-2023 Glucose [Mass/Vol] 129 mg/dL 70-100 [facility] Comment on above: ADA recommended refe rence rangeRandom Glucose Reference Range is dependent on time and content of last meal. Glucose of more than 200 mg/dL in a nonstressed, ambulatory subject supports the diagnosis of Diabetes Mellitus. Hematocrit Auto (Bld) [Volum e fraction]Ordered By: Chintan Sweet on 09-25-2023 Hematocrit (Bld) [Volume fraction] 28.0 % 38.8-50.0 [facility] Hemoglobin [Mass/volume] in BloodOrdered By: Chintan Sweet on 09-25-2023 Hemoglobin (Bld) [Mass/Vol] 9.5 g/dL 13.0-17.0 [facility] Leukocytes [#/volume] correc scott for nucleated erythrocytes in Blood by Automated counOrdered By: Chintan Sweet on 09-25-2023 WBC corrected for nucl RBC Auto (Bld) [#/Vol] 11.7 10*3/uL 4.1-10.5 [facility] Lymphocytes Auto (Bld) [#/Vo l]Ordered By: Chintan Sweet on 09-25-2023 Lymphocytes (Bld) [#/Vol] 1.7 10*3/uL 1.00-4.8 [facility] Lymphocytes/100 WBC Auto (Bl d)Ordered By: Chintan Sweet on 09-25-2023 Lymphocytes/100 WBC (Bld) 14.2 % . [facility] MCH Auto (RBC) [Entitic mass ]Ordered By: Chintan Sweet on 09-25-2023 MCH (RBC) [Entitic mass] 31.2 pg 27.5-35.2 [facility] MCHC Auto (RBC) [Mass/Vol]Or dered By: Chintan Sweet on 09-25-2023 MCHC (RBC) [Mass/Vol] 34.1 g/dL 32.5-35.6 [facility] MCV Auto (RBC) [Entitic vol] Ordered By: Chintan Sweet on 09-25-2023 MCV (RBC) [Entitic vol] 91.4 fL 83.5-101 [facility] Monocyte distribution width [Entitic volume] in Blood by AutomatedOrdered By: Chintan Sweet on 09-25-2023 Monocyte distribution width Auto (Bld) [Entitic vol] 21.57 % 0.00-20.00 [facility] Comment on above: For adults in ED, MD W > 20.0 may be associated with a higher risk of sepsis during the first 12 hrs of hospital admission Monocytes Auto (Bld) [#/Vol] Ordered By: Chintan Sweet on 09-25-2023 Monocytes (Bld) [#/Vol] 0.8 10*3/uL 0.0-0.8 [facility] Monocytes/100 WBC Auto (Bld) Ordered By: Chintan Sweet on 09-25-2023 Monocytes/100 WBC (Bld) 6.8 % . [facility] Natriuretic peptide B [Mass/ Vol]Ordered By: Chintan Sweet on 09-25-2023 Natriuretic peptide B (Bld) [Mass/Vol] 16.0 pg/mL 5-100 [facility] Neutrophils Auto (Bld) [#/Vo l]Ordered By: Chintan Sweet on 09-25-2023 Neutrophils (Bld) [#/Vol] 8.7 10*3/uL 1.8-7.7 [facility] Neutrophils/100 WBC Auto (Bl d)Ordered By: Chintan Sweet on 09-25-2023 Neutrophils/100 WBC (Bld) 74.5 % . [facility] No Panel InformationOrdered By: Chintan Sweet on 09-25-2023 Estimated GFR (CKD-EPI) 10.985 mL/Min [facility] Creatinine Clearance (Chem 23.13 [facility] Nucleated erythrocytes [Pres ence] in Blood by Automated countOrdered By: Chintan Sweet on 09-25-2023 Nucleated RBC Auto Ql (Bld) 0.1 /100{WBC} 0-0.5 [facility] Platelet mean volume Auto (B ld) [Entitic vol]Ordered By: Chintan Sweet on 09-25-2023 Platelet mean volume (Bld) [Entitic vol] 7.9 fL 6.6-10.1 [facility] Platelets Auto (Bld) [#/Vol] Ordered By: Chintan Sweet on 09-25-2023 Platelets (Bld) [#/Vol] 330 10*3/uL 150-450 [facility] Potassium [Moles/volume] in Serum or PlasmaOrdered By: Chintan Sweet on 09-25-2023 Potassium [Moles/Vol] 3.8 mmol/L 3.5-5.1 [facility] Protein [Mass/volume] in Ser um or PlasmaOrdered By: Chintan Sweet on 09-25-2023 Protein [Mass/Vol] 7.8 g/dL 6.4-8.9 [facility] RBC Auto (Bld) [#/Vol]Ordere d By: Chintan Sweet on 09-25-2023 RBC (Bld) [#/Vol] 3.06 10*6/uL 3.90-5.60 [facility] Serum or plasma albumin/glob ulin mass ratioOrdered By: Chintan Sweet on 09-25-2023 Albumin/Globulin [Mass ratio] 1.1 {ratio} [facility] Serum or plasma anion gap de terminationOrdered By: Chintan Sweet on 09-25-2023 Anion gap [Moles/Vol] 14.2 mmol/L 6.0-15.0 [facility] Sodium [Moles/volume] in Ser um or PlasmaOrdered By: Chintan Sweet on 09-25-2023 Sodium [Moles/Vol] 135 mmol/L 136-145 [facility] Troponin I.cardiac [Mass/vol ume] in Serum or Plasma by Detection limit <= 0.01 ng/Ordered By: Chintan Sweet on 09-25-2023 Troponin I.cardiac DL <= 0.01 ng/mL [Mass/Vol] 55.3 pg/mL 0.0-20.0 [facility] Comment on above: Critical Result : Ca lled to and read back by: JUDAH LOWRY at: 09/25/2023 23:49:03 by: Urea nitrogen [Mass/volume] in Serum or PlasmaOrdered By: Chintan Sweet on 09-25-2023 Urea nitrogen [Mass/Vol] 43 mg/dL 7-25 [facility] WBC Auto (Bld) [#/Vol]Ordere d By: Chintan Sweet on 09-25-2023 WBC (Bld) [#/Vol] 11.7 10*3/uL 4.1-10.5 [facility] Basophils Auto (Bld) [#/Vol] Ordered By: Moses Boateng on 09-16-2023 Basophils (Bld) [#/Vol] 0.0 10*3/uL 0.0-0.2 [facility] Basophils/100 WBC Auto (Bld) Ordered By: Moses Boateng on 09-16-2023 Basophils/100 WBC (Bld) 0.4 % . [facility] Calcium [Mass/volume] in Ser um or PlasmaOrdered By: Moses Boateng on 09-16-2023 Calcium [Mass/Vol] 8.2 mg/dL 8.6-10.3 [facility] Carbon dioxide, total [Moles /volume] in Serum or PlasmaOrdered By: Moses Boateng on 09-16-2023 CO2 [Moles/Vol] 23.5 mmol/L 21.0-31.0 [facility] Chloride [Moles/volume] in S james or PlasmaOrdered By: Moses Boateng on 09-16-2023 Chloride [Moles/Vol] 106 mmol/L 98-107 [facility] Creatinine [Mass/volume] in Serum or PlasmaOrdered By: Moses Boateng on 09-16-2023 Creatinine [Mass/Vol] 10.67 mg/dL 0.70-1.30 [facility] Eosinophils Auto (Bld) [#/Vo l]Ordered By: Moses Boateng on 09-16-2023 Eosinophils (Bld) [#/Vol] 0.4 10*3/uL 0.0-0.45 [facility] Eosinophils/100 WBC Auto (Bl d)Ordered By: Moses Boateng on 09-16-2023 Eosinophils/100 WBC (Bld) 3.5 % . [facility] Erythrocyte distribution wid th Auto (RBC) [Ratio]Ordered By: Moses Boateng on 09-16-2023 Erythrocyte distribution width (RBC) [Ratio] 14.9 % 12.0-14.8 [facility] Glucose Glucometer (BldC) [M ass/Vol]Ordered By: Ramirez Jean on 09-16-2023 Glucose [Mass/Vol] 103 mg/dL [facility] Comment on above: Random Glucose Refer ence Range is dependent on time and content of last meal. Glucose of more than 200 mg/dL in a nonstressed, ambulatory subject supports the diagnosis of Diabetes Mellitus. Glucose [Mass/volume] in Ser um or PlasmaOrdered By: Moses Boateng on 09-16-2023 Glucose [Mass/Vol] 93 mg/dL 70-100 [facility] Comment on above: ADA recommended refe rence rangeRandom Glucose Reference Range is dependent on time and content of last meal. Glucose of more than 200 mg/dL in a nonstressed, ambulatory subject supports the diagnosis of Diabetes Mellitus. Hematocrit Auto (Bld) [Volum e fraction]Ordered By: Moses Boateng on 09-16-2023 Hematocrit (Bld) [Volume fraction] 26.0 % 38.8-50.0 [facility] Hemoglobin [Mass/volume] in BloodOrdered By: Moses Boateng on 09-16-2023 Hemoglobin (Bld) [Mass/Vol] 8.7 g/dL 13.0-17.0 [facility] Leukocytes [#/volume] correc scott for nucleated erythrocytes in Blood by Automated counOrdered By: Moses Boateng on 09-16-2023 WBC corrected for nucl RBC Auto (Bld) [#/Vol] 11.3 10*3/uL 4.1-10.5 [facility] Lymphocytes Auto (Bld) [#/Vo l]Ordered By: Moses Boateng on 09-16-2023 Lymphocytes (Bld) [#/Vol] 1.7 10*3/uL 1.00-4.8 [facility] Lymphocytes/100 WBC Auto (Bl d)Ordered By: Moses Boateng on 09-16-2023 Lymphocytes/100 WBC (Bld) 14.7 % . [facility] MCH Auto (RBC) [Entitic mass ]Ordered By: Moses Boateng on 09-16-2023 MCH (RBC) [Entitic mass] 30.7 pg 27.5-35.2 [facility] MCHC Auto (RBC) [Mass/Vol]Or dered By: Moses Boateng on 09-16-2023 MCHC (RBC) [Mass/Vol] 33.4 g/dL 32.5-35.6 [facility] MCV Auto (RBC) [Entitic vol] Ordered By: Moses Boateng on 09-16-2023 MCV (RBC) [Entitic vol] 91.9 fL 83.5-101 [facility] Monocytes Auto (Bld) [#/Vol] Ordered By: Moses Boateng on 09-16-2023 Monocytes (Bld) [#/Vol] 0.8 10*3/uL 0.0-0.8 [facility] Monocytes/100 WBC Auto (Bld) Ordered By: Moses Boateng on 09-16-2023 Monocytes/100 WBC (Bld) 7.3 % . [facility] Neutrophils Auto (Bld) [#/Vo l]Ordered By: Moses Boateng on 09-16-2023 Neutrophils (Bld) [#/Vol] 8.4 10*3/uL 1.8-7.7 [facility] Neutrophils/100 WBC Auto (Bl d)Ordered By: Moses Boateng on 09-16-2023 Neutrophils/100 WBC (Bld) 74.1 % . [facility] No Panel InformationOrdered By: Moses Boateng on 09-16-2023 Estimated GFR (CKD-EPI) 5.286 mL/Min [facility] Creatinine Clearance (Chem 12.72 [facility] Nucleated erythrocytes [Pres ence] in Blood by Automated countOrdered By: Moses Boateng on 09-16-2023 Nucleated RBC Auto Ql (Bld) 0.0 /100{WBC} 0-0.5 [facility] Platelet mean volume Auto (B ld) [Entitic vol]Ordered By: Moses Boateng on 09-16-2023 Platelet mean volume (Bld) [Entitic vol] 8.0 fL 6.6-10.1 [facility] Platelets Auto (Bld) [#/Vol] Ordered By: Moses Boateng on 09-16-2023 Platelets (Bld) [#/Vol] 247 10*3/uL 150-450 [facility] Potassium [Moles/volume] in Serum or PlasmaOrdered By: Moses Boateng on 09-16-2023 Potassium [Moles/Vol] 4.3 mmol/L 3.5-5.1 [facility] RBC Auto (Bld) [#/Vol]Ordere d By: Moses Boateng on 09-16-2023 RBC (Bld) [#/Vol] 2.83 10*6/uL 3.90-5.60 [facility] Serum or plasma anion gap de terminationOrdered By: Moses Boateng on 09-16-2023 Anion gap [Moles/Vol] 17.8 mmol/L 6.0-15.0 [facility] Sodium [Moles/volume] in Ser um or PlasmaOrdered By: Moses Boateng on 09-16-2023 Sodium [Moles/Vol] 143 mmol/L 136-145 [facility] Urea nitrogen [Mass/volume] in Serum or PlasmaOrdered By: Moses Boateng on 09-16-2023 Urea nitrogen [Mass/Vol] 110 mg/dL 7-25 [facility] WBC Auto (Bld) [#/Vol]Ordere d By: Moses Boateng on 09-16-2023 WBC (Bld) [#/Vol] 11.3 10*3/uL 4.1-10.5 [facility] Alanine aminotransferase [En zymatic activity/volume] in Serum or PlasmaOrdered By: Michelle Kennedy on 06-26-2023 ALT [Catalytic activity/Vol] 16 U/L 7-52 [facility] Albumin [Mass/volume] in Ser um or Plasma by Bromocresol green (BCG) dye binding methoOrdered By: Michelle Kennedy on 06-26-2023 Albumin BCG dye [Mass/Vol] 3.8 g/dL 3.5-5.7 [facility] Alkaline phosphatase [Enzyma tic activity/volume] in Serum or PlasmaOrdered By: Michelle Kennedy on 06-26-2023 ALP [Catalytic activity/Vol] 63 U/L 34-104 [facility] Aspartate aminotransferase [ Enzymatic activity/volume] in Serum or PlasmaOrdered By: Michelle Kennedy on 06-26-2023 AST [Catalytic activity/Vol] 11 U/L 13-39 [facility] Bilirubin.total [Mass/volume ] in Serum or PlasmaOrdered By: Michelle Kennedy on 06-26-2023 Bilirubin [Mass/Vol] 0.3 mg/dL 0.3-1.0 [facility] Calcium [Mass/volume] in Ser um or PlasmaOrdered By: Michelle Kennedy on 06-26-2023 Calcium [Mass/Vol] 8.4 mg/dL 8.6-10.3 [facility] Carbon dioxide, total [Moles /volume] in Serum or PlasmaOrdered By: Michelle Kennedy on 06-26-2023 CO2 [Moles/Vol] 24.9 mmol/L 21.0-31.0 [facility] Chloride [Moles/volume] in S james or PlasmaOrdered By: Michelle Kennedy on 06-26-2023 Chloride [Moles/Vol] 107 mmol/L 98-107 [facility] Cholesterol [Mass/volume] in Serum or PlasmaOrdered By: Michelle Kennedy on 06-26-2023 Cholesterol [Mass/Vol] 143 mg/dL 140-200 [facility] Comment on above: Chol less than 200 m g/dl low riskChol 201-239 mg/dl borderline riskChol 240 mg/dl and greater high risk Cholesterol in LDL Calc [Mas s/Vol]Ordered By: Michelle Kennedy on 06-26-2023 Cholesterol in LDL [Mass/Vol] 72 mg/dL 0-100 [facility] Comment on above: LDL ATP III CLASSIFI CATIONLDL less than 100 mg/dL OptimalLDL 100-129 mg/dL Near or above optimalLDL 130-159 mg/dL Borderline highLDL 160-189 mg/dL HighLDL greater than 189 mg/dL Very high Cholesterol in VLDL Calc [Ma ss/Vol]Ordered By: Michelle Kennedy on 06-26-2023 Cholesterol in VLDL [Mass/Vol] 40 mg/dL [facility] Creatinine [Mass/volume] in Serum or PlasmaOrdered By: Michelle Kennedy on 06-26-2023 Creatinine [Mass/Vol] 8.14 mg/dL 0.70-1.30 [facility] Globulin Calc (S) [Mass/Vol] Ordered By: Michelle Kennedy on 06-26-2023 Globulin (S) [Mass/Vol] 3.2 g/dL [facility] Glucose [Mass/volume] in Ser um or PlasmaOrdered By: Michelle Kennedy on 06-26-2023 Glucose [Mass/Vol] 117 mg/dL 70-100 [facility] Comment on above: ADA recommended refe rence rangeRandom Glucose Reference Range is dependent on time and content of last meal. Glucose of more than 200 mg/dL in a nonstressed, ambulatory subject supports the diagnosis of Diabetes Mellitus. No Panel InformationOrdered By: Michelle Kennedy on 06-26-2023 C-Peptide 3.3 ng/mL 1.1-4.4 [facility] Comment on above: C-Peptide reference interval is for fasting patients.Performed at: [facility] [id number] Director: Omar Frederick PhD, Phone: [phone] Estimated GFR (CKD-EPI) 7.315 mL/Min [facility] Creatinine Clearance (Chem N/A [facility] Potassium [Moles/volume] in Serum or PlasmaOrdered By: Michelle Kennedy on 06-26-2023 Potassium [Moles/Vol] 4.0 mmol/L 3.5-5.1 [facility] Protein [Mass/volume] in Ser um or PlasmaOrdered By: Michelle Kennedy on 06-26-2023 Protein [Mass/Vol] 7.0 g/dL 6.4-8.9 [facility] Serum or plasma albumin/glob ulin mass ratioOrdered By: Mcihelle Kennedy on 06-26-2023 Albumin/Globulin [Mass ratio] 1.2 {ratio} [facility] Serum or plasma anion gap de terminationOrdered By: Michelle Kennedy on 06-26-2023 Anion gap [Moles/Vol] 13.1 mmol/L 6.0-15.0 [facility] Serum or plasma high density lipoprotein (HDL) cholesterol measurementOrdered By: Michelle Kennedy on 06-26-2023 Cholesterol in HDL [Mass/Vol] 31 mg/dL 23-92 [facility] Comment on above: HDL CHOL ATP-III CLA SSIFICATION Cardiovascular RiskHDL > or equal to 60 mg/dL LOWHDL < 40 mg/dL HIGH Serum or plasma total choles terol/high density lipoprotein (HDL) cholesterol mass ratOrdered By: Michelle Kennedy on 06-26-2023 Cholesterol.total/Chol esterol in HDL [Mass ratio] 4.6 {ratio} <5.0 [facility] Sodium [Moles/volume] in Ser um or PlasmaOrdered By: Michelle Kennedy on 06-26-2023 Sodium [Moles/Vol] 141 mmol/L 136-145 [facility] Triglyceride [Mass/volume] i n Serum or PlasmaOrdered By: Michelle Kennedy on 06-26-2023 Triglyceride [Mass/Vol] 200 mg/dL 0-149 [facility] Comment on above: TRIG ATP III CLASSIF ICATIONTRIG less than 150 mg/dL NormalTRIG 150-199 mg/dL Borderline highTRIG 200-500 mg/dL High TRIG greater than 500 mg/dL Very highStandard traceable to the Center for Disease Conrtrol and Prevention (CDC) test method. Urea nitrogen [Mass/volume] in Serum or PlasmaOrdered By: Michelle Kennedy on 06-26-2023 Urea nitrogen [Mass/Vol] 79 mg/dL 7-25 [facility] Albumin [Mass/volume] in Ser um or PlasmaOrdered By: Yocasta Villalba on 11-07-2022 Albumin [Mass/Vol] 2.9 g/dL 3.2-5.5 [facility] Basophils Auto (Bld) [#/Vol] Ordered By: Chintan Brewster on 11-07-2022 Basophils (Bld) [#/Vol] 0.0 10*3/uL 0.0-0.2 [facility] Basophils/100 WBC Auto (Bld) Ordered By: Chintan Brewster on 11-07-2022 Basophils/100 WBC (Bld) 0.1 % . [facility] Calcium [Mass/volume] in Ser um or PlasmaOrdered By: Yocasta Villalba on 11-07-2022 Calcium [Mass/Vol] 8.2 mg/dL 8.2-10.2 [facility] Carbon dioxide, total [Moles /volume] in Serum or PlasmaOrdered By: Yocasta Villalba on 11-07-2022 CO2 [Moles/Vol] 16.2 mmol/L 22.0-30.0 [facility] Chloride [Moles/volume] in S james or PlasmaOrdered By: Yocasta Villalba on 11-07-2022 Chloride [Moles/Vol] 109 mmol/L 95-114 [facility] Creatinine and Glomerular fi ltration rate.predicted panel (S/P/Bld)Ordered By: Yocasta Villalba on 11-07-2022 Creatinine [Mass/Vol] 6.66 mg/dL 0.64-1.27 [facility] Eosinophils Auto (Bld) [#/Vo l]Ordered By: Chintan Brewster on 11-07-2022 Eosinophils (Bld) [#/Vol] 0.0 10*3/uL 0.0-0.45 [facility] Eosinophils/100 WBC Auto (Bl d)Ordered By: Chintan Brewster on 11-07-2022 Eosinophils/100 WBC (Bld) 0.1 % . [facility] Erythrocyte distribution wid th Auto (RBC) [Ratio]Ordered By: Chintan Brewster on 11-07-2022 Erythrocyte distribution width (RBC) [Ratio] 14.2 % 12.0-14.8 [facility] Estimated glomerular filtrat ion rate (GFR) non- AmericanOrdered By: Yocasta Villalba on 11-07-2022 GFR/1.73 sq M.predicted among non-blacks MDRD (S/P/Bld) [Vol rate/Area] 9 mL/Min [facility] Glucose Glucometer (BldC) [M ass/Vol]Ordered By: Chintan Brewster on 11-07-2022 Glucose [Mass/Vol] 230 mg/dL [facility] Comment on above: Random Glucose Refer ence Range is dependent on time and content of last meal. Glucose of more than 200 mg/dL in a nonstressed, ambulatory subject supports the diagnosis of Diabetes Mellitus. Glucose [Mass/volume] in Ser um or PlasmaOrdered By: Yocasta Villalba on 11-07-2022 Glucose [Mass/Vol] 239 mg/dL 70-100 [facility] Comment on above: Delta: 340 on -[id number] recommended reference rangeRandom Glucose Reference Range is dependent on time and content of last meal. Glucose of more than 200 mg/dL in a nonstressed, ambulatory subject supports the diagnosis of Diabetes Mellitus. Hematocrit Auto (Bld) [Volum e fraction]Ordered By: Chintan Brewster on 11-07-2022 Hematocrit (Bld) [Volume fraction] 27.0 % 38.8-50.0 [facility] Hemoglobin [Mass/volume] in BloodOrdered By: Chintan Brewster on 11-07-2022 Hemoglobin (Bld) [Mass/Vol] 8.8 g/dL 13.0-17.0 [facility] Leukocytes [#/volume] correc scott for nucleated erythrocytes in Blood by Automated counOrdered By: Chintan Brewster on 11-07-2022 WBC corrected for nucl RBC Auto (Bld) [#/Vol] 12.4 10*3/uL 4.1-10.5 [facility] Lymphocytes Auto (Bld) [#/Vo l]Ordered By: Chintan Brewster on 11-07-2022 Lymphocytes (Bld) [#/Vol] 0.7 10*3/uL 1.00-4.8 [facility] Lymphocytes/100 WBC Auto (Bl d)Ordered By: Chintan Brewster on 11-07-2022 Lymphocytes/100 WBC (Bld) 5.8 % . [facility] MCH Auto (RBC) [Entitic mass ]Ordered By: Chintan Brewster on 11-07-2022 MCH (RBC) [Entitic mass] 29.7 pg 27.5-35.2 [facility] MCHC Auto (RBC) [Mass/Vol]Or dered By: Chintan Brewster on 11-07-2022 MCHC (RBC) [Mass/Vol] 32.7 g/dL 32.5-35.6 [facility] MCV Auto (RBC) [Entitic vol] Ordered By: Chintan Brewster on 11-07-2022 MCV (RBC) [Entitic vol] 90.8 fL 83.5-101 [facility] Monocytes Auto (Bld) [#/Vol] Ordered By: Chintan Brewster on 11-07-2022 Monocytes (Bld) [#/Vol] 0.8 10*3/uL 0.0-0.8 [facility] Monocytes/100 WBC Auto (Bld) Ordered By: Chintan Brewster on 11-07-2022 Monocytes/100 WBC (Bld) 6.5 % . [facility] Neutrophils Auto (Bld) [#/Vo l]Ordered By: Chintan Brewster on 11-07-2022 Neutrophils (Bld) [#/Vol] 10.9 10*3/uL 1.8-7.7 [facility] Neutrophils/100 WBC Auto (Bl d)Ordered By: Chintan Brewster on 11-07-2022 Neutrophils/100 WBC (Bld) 87.5 % . [facility] No Panel InformationOrdered By: Yocasta Villalba on 11-07-2022 Estimated GFR () 11 mL/Min [facility] Comment on above: GFR estimated refere nce range: According to KDOQI guidelines, <60 ml/min/1.73m2 is sufficient to diagnose a patient with chronic kidney disease. Pharmacy Creatinine Clearance (Chem 19.91 [facility] No Panel InformationOrdered By: Chintan Brewster on 11-07-2022 Bedside Glucose Comment Glu2: cleaned meter [facility] Bedside Glucose #2 Comment Will repeat test [facility] Nucleated erythrocytes [Pres ence] in Blood by Automated countOrdered By: Chintan Brewster on 11-07-2022 Nucleated RBC Auto Ql (Bld) 0.1 /100{WBC} 0-0.5 [facility] Phosphate [Mass/volume] in S james or PlasmaOrdered By: Yocasta Villalba on 11-07-2022 Phosphate [Mass/Vol] 4.2 mg/dL 2.5-4.6 [facility] Platelet mean volume Auto (B ld) [Entitic vol]Ordered By: Chintan Brewster on 11-07-2022 Platelet mean volume (Bld) [Entitic vol] 7.1 fL 6.6-10.1 [facility] Platelets Auto (Bld) [#/Vol] Ordered By: Chintan Brewster on 11-07-2022 Platelets (Bld) [#/Vol] 399 10*3/uL 150-450 [facility] Potassium [Moles/volume] in Serum or PlasmaOrdered By: Yocasta Villalba on 11-07-2022 Potassium [Moles/Vol] 4.4 mmol/L 3.5-5.1 [facility] Comment on above: *Additional results available. Contact laboratory/see report*Delta: 6.0 on 11/07/22 RBC Auto (Bld) [#/Vol]Ordere d By: Chintan Brewster on 11-07-2022 RBC (Bld) [#/Vol] 2.97 10*6/uL 3.90-5.60 [facility] Serum or plasma anion gap de terminationOrdered By: Yocasta Villalba on 11-07-2022 Anion gap [Moles/Vol] 14.2 mmol/L 6.0-15.0 [facility] Sodium [Moles/volume] in Ser um or PlasmaOrdered By: Yocasta Villalba on 11-07-2022 Sodium [Moles/Vol] 135 mmol/L 136-146 [facility] Urea nitrogen [Mass/volume] in Serum or PlasmaOrdered By: Yocasta Villalba on 11-07-2022 Urea nitrogen [Mass/Vol] 73 mg/dL 9- [facility] WBC Auto (Bld) [#/Vol]Ordere d By: Chintan Brewster on 11-07-2022 WBC (Bld) [#/Vol] 12.4 10*3/uL 4.1-10.5 [facility] CT biopsyOrdered By: Yocasta rockwell on 11-06-2022 Transferrin [Mass/Vol] 225 mg/dL 180-380 [facility] Ferritin [Mass/volume] in Se rum or PlasmaOrdered By: Yocasta Villalba on 11-06-2022 Ferritin [Mass/Vol] 363.1 ng/mL 23.9-336.2 [facility] Folate [Mass/volume] in Seru m or PlasmaOrdered By: Yocasta Villalba on 11-06-2022 Folate [Mass/Vol] 11.5 ng/mL >5.9 [facility] Comment on above: Folate reference ran ge: >5.9 ng/mlThe WHO technical consultation on folate and vitamin [id number] has determined that folate concentrations lessthan 4 ng/ml are considered deficient. Iron [Mass/volume] in Serum or PlasmaOrdered By: Yocasta Villalba on 11-06-2022 Iron [Mass/Vol] 38 ug/dL 40-160 [facility] Iron binding capacity [Mass/ volume] in Serum or PlasmaOrdered By: Yocasta Villalba on 11-06-2022 Iron binding capacity [Mass/Vol] 315 ug/dL 255-450 [facility] Iron saturation [Mass Fracti on] in Serum or PlasmaOrdered By: Yocasta Villalba on 11-06-2022 Iron saturation [Mass fraction] 12.1 % 20-50 [facility] COVID CepheidOrdered By: Joyce Brewster on 11-05-2022 SARS-CoV-2 (COVID-19) Ab IA Ql Negative Negative [facility] Comment on above: This is a duplicate [employer] CoV-2/Flu/RSV Plus RNA by RT-PCR result to be used for statistical tracking purpose only. SARS-CoV-2 (COVID-19) RNA SHAY+probe Ql (Unsp spec) [facility] SARS-CoV-2 (COVID-19) RNA SHAY+probe Ql (Unsp spec) [facility] Activated partial thrombopla stin time (aPTT) in platelet poor plasma by coagulation aOrdered By: Millie Burgos on 11-04-2022 aPTT Coag (PPP) [Time] 35.0 s 25.1-36.5 [facility] Albumin [Mass/volume] in Bod y fluidOrdered By: Delano Mondragon on 11-04-2022 Albumin (Body fld) [Mass/Vol] 3.3 g/dL 3.2-5.5 [facility] Alkaline phosphatase [Enzyma tic activity/volume] in Serum or PlasmaOrdered By: Delano Mondragon on 11-04-2022 ALP [Catalytic activity/Vol] 59 U/L 32-92 [facility] Aspartate aminotransferase [ Enzymatic activity/volume] in Serum or PlasmaOrdered By: Delano Mondragon on 11-04-2022 AST [Catalytic activity/Vol] 14 U/L 10-42 [facility] Automated erythrocytes count in urine sediment (number/area)Ordered By: Millie Burgos on 11-04-2022 RBC Auto (Urine sed) [#/Area] 3-4 [HPF] 0-4 [facility] Automated leukocytes count i n urine sediment (number/area)Ordered By: Millie Burgos on 11-04-2022 WBC Auto (Urine sed) [#/Area] 1-2 [HPF] 0-4 [facility] Basophils Auto (Bld) [#/Vol] Ordered By: Delano Mondragon on 11-04-2022 Basophils (Bld) [#/Vol] 0.1 10*3/uL 0.0-0.2 [facility] [facility] Basophils/100 WBC Auto (Bld) Ordered By: Delano Mondragon on 11-04-2022 Basophils/100 WBC (Bld) 1.1 % . [facility] Bilirubin Test strip Ql (U)O rdered By: Millie Burgos on 11-04-2022 Bilirubin Ql (U) Negative Negative [facility] Bilirubin.total [Mass/volume ] in Serum or PlasmaOrdered By: Delano Mondragon on 11-04-2022 Bilirubin [Mass/Vol] 0.3 mg/dL 0.3-1.2 [facility] Calcium [Mass/volume] in Ser um or PlasmaOrdered By: Delano Mondragon on 11-04-2022 Calcium [Mass/Vol] 8.9 mg/dL 8.2-10.2 [facility] Carbon dioxide, total [Moles /volume] in Serum or PlasmaOrdered By: Delano Mondragon on 11-04-2022 CO2 [Moles/Vol] 17.3 mmol/L 22.0-30.0 [facility] Chloride [Moles/volume] in S james or PlasmaOrdered By: Delano Mondragon on 11-04-2022 Chloride [Moles/Vol] 112 mmol/L 95-114 [facility] Color Auto (U)Ordered By: Jose M Burgos on 11-04-2022 Color (U) Yellow Yellow [facility] Creatinine and Glomerular fi ltration rate.predicted panel (S/P/Bld)Ordered By: Delano Mondragon on 11-04-2022 Creatinine [Mass/Vol] 5.77 mg/dL 0.64-1.27 [facility] Eosinophils Auto (Bld) [#/Vo l]Ordered By: Delano Mondragon on 11-04-2022 Eosinophils (Bld) [#/Vol] 0.3 10*3/uL 0.0-0.45 [facility] Eosinophils/100 WBC Auto (Bl d)Ordered By: Delano Mondragon on 11-04-2022 Eosinophils/100 WBC (Bld) 2.7 % . [facility] Erythrocyte distribution wid th Auto (RBC) [Ratio]Ordered By: Delano Mondragon on 11-04-2022 Erythrocyte distribution width (RBC) [Ratio] 14.5 % 12.0-14.8 [facility] Estimated glomerular filtrat ion rate (GFR) non- AmericanOrdered By: Delano Mondragon on 11-04-2022 GFR/1.73 sq M.predicted among non-blacks MDRD (S/P/Bld) [Vol rate/Area] 10 mL/Min [facility] Globulin Calc (S) [Mass/Vol] Ordered By: Delano Mondragon on 11-04-2022 Globulin (S) [Mass/Vol] 4.2 g/dL [facility] Glucose [Mass/volume] in Ser um or PlasmaOrdered By: Delano Mondragon on 11-04-2022 Glucose [Mass/Vol] 82 mg/dL 70-100 [facility] Comment on above: ADA recommended refe rence rangeRandom Glucose Reference Range is dependent on time and content of last meal. Glucose of more than 200 mg/dL in a nonstressed, ambulatory subject supports the diagnosis of Diabetes Mellitus. Hematocrit Auto (Bld) [Volum e fraction]Ordered By: Delano Mondragon on 11-04-2022 Hematocrit (Bld) [Volume fraction] 30.2 % 38.8-50.0 [facility] Hemoglobin [Mass/volume] in BloodOrdered By: Delano Mondragon on 11-04-2022 Hemoglobin (Bld) [Mass/Vol] 9.8 g/dL 13.0-17.0 [facility] Ketones Auto test strip (U) [Mass/Vol]Ordered By: Millie Brugos on 11-04-2022 Ketones (U) [Mass/Vol] Negative Negative [facility] - Chemistry and C hemistry - challengeOrdered By: Millie Burgos on 11-04-2022 Magnesium [Mass/Vol] 1.6 mg/dL 1.6-2.6 [facility] Natriuretic peptide B (Bld) [Mass/Vol] 27.0 pg/mL 5-100 [facility] Laboratory - CoagulationOrde red By: Millie Burgos on 11-04-2022 PT Coag (PPP) [Time] 12.4 s 9.0-12.9 [facility] Laboratory - UrinalysisOrder ed By: Millie Burgos on 11-04-2022 Hyaline casts LM Ql (Urine sed) 0-8 [LPF] 0-8 [facility] Leukocytes [#/volume] correc scott for nucleated erythrocytes in Blood by Automated counOrdered By: Delano Mondragon on 11-04-2022 WBC corrected for nucl RBC Auto (Bld) [#/Vol] 12.2 10*3/uL 4.1-10.5 [facility] Lymphocytes Auto (Bld) [#/Vo l]Ordered By: Delano Mondragon on 11-04-2022 Lymphocytes (Bld) [#/Vol] 1.5 10*3/uL 1.00-4.8 [facility] Lymphocytes/100 WBC Auto (Bl d)Ordered By: Delano Mondragon on 11-04-2022 Lymphocytes/100 WBC (Bld) 12.4 % . [facility] MCH Auto (RBC) [Entitic mass ]Ordered By: Delano Mondragon on 11-04-2022 MCH (RBC) [Entitic mass] 29.6 pg 27.5-35.2 [facility] MCHC Auto (RBC) [Mass/Vol]Or dered By: Delano Mondragon on 11-04-2022 MCHC (RBC) [Mass/Vol] 32.6 g/dL 32.5-35.6 [facility] MCV Auto (RBC) [Entitic vol] Ordered By: Delano Mondragon on 11-04-2022 MCV (RBC) [Entitic vol] 90.9 fL 83.5-101 [facility] Monocyte distribution width [Entitic volume] in Blood by AutomatedOrdered By: Delano Mondragon on 11-04-2022 Monocyte distribution width Auto (Bld) [Entitic vol] 17.32 % 0.00-20.00 [facility] Monocytes Auto (Bld) [#/Vol] Ordered By: Delano Mondragon on 11-04-2022 Monocytes (Bld) [#/Vol] 1.1 10*3/uL 0.0-0.8 [facility] Monocytes/100 WBC Auto (Bld) Ordered By: Delano Mondragon on 11-04-2022 Monocytes/100 WBC (Bld) 9.0 % . [facility] Neutrophils Auto (Bld) [#/Vo l]Ordered By: Delano Mondragon on 11-04-2022 Neutrophils (Bld) [#/Vol] 9.1 10*3/uL 1.8-7.7 [facility] Neutrophils/100 WBC Auto (Bl d)Ordered By: Delano Mondragon on 11-04-2022 Neutrophils/100 WBC (Bld) 74.8 % . [facility] Nitrite Test strip Ql (U)Ord ered By: Millie Burgos on 11-04-2022 Nitrite Ql (U) Negative Negative [facility] No Panel InformationOrdered By: Delano Mondragon on 11-04-2022 Estimated GFR () 13 mL/Min [facility] Comment on above: GFR estimated refere nce range: According to KDOQI guidelines, <60 ml/min/1.73m2 is sufficient to diagnose a patient with chronic kidney disease. Pharmacy Creatinine Clearance (Chem 22.99 [facility] Nucleated erythrocytes [Pres ence] in Blood by Automated countOrdered By: Delano Mondragon on 11-04-2022 Nucleated RBC Auto Ql (Bld) 0.0 /100{WBC} 0-0.5 [facility] Phosphate [Mass/volume] in S james or PlasmaOrdered By: Millie Burgos on 11-04-2022 Phosphate [Mass/Vol] 3.8 mg/dL 2.5-4.6 [facility] Platelet mean volume Auto (B ld) [Entitic vol]Ordered By: Delano Mondragon on 11-04-2022 Platelet mean volume (Bld) [Entitic vol] 6.7 fL 6.6-10.1 [facility] Platelet poor plasma interna tional normalized ratio (INR) by coagulation assay (relatOrdered By: Millie Burgos on 11-04-2022 INR Coag (PPP) [Relative time] 1.1 {INR} [facility] Comment on above: INR Therapeutic Rang e [...] 11-04-2022 Platelets (Bld) [#/Vol] 418 10*3/uL 150-450 [facility] Potassium [Moles/volume] in Serum or PlasmaOrdered By: Delano Mondragon on 11-04-2022 Potassium [Moles/Vol] 5.3 mmol/L 3.5-5.1 [facility] Protein Auto test strip (U) [Mass/Vol]Ordered By: Millie Burgos on 11-04-2022 Protein (U) [Mass/Vol] 300 mg/dL Negative Fi [facility] Protein [Mass/volume] in Ser um or PlasmaOrdered By: Delano Mondragon on 11-04-2022 Protein [Mass/Vol] 7.5 g/dL 6.1-7.9 [facility] RBC Auto (Bld) [#/Vol]Ordere d By: Delano Mondragon on 11-04-2022 RBC (Bld) [#/Vol] 3.32 10*6/uL 3.90-5.60 [facility] Serum or plasma alanine lawson otransferase measurement without P-5'-P (enzymatic activiOrdered By: Delano Mondragon on 11-04-2022 ALT No additional P-5'-P [Catalytic activity/Vol] 23 U/L 10-60 [facility] Serum or plasma albumin/glob ulin mass ratioOrdered By: Delano Mondragon on 11-04-2022 Albumin/Globulin [Mass ratio] 0.8 {ratio} [facility] Serum or plasma anion gap de terminationOrdered By: Delano Mondragon on 11-04-2022 Anion gap [Moles/Vol] 14.0 mmol/L 6.0-15.0 [facility] Sodium [Moles/volume] in Ser um or PlasmaOrdered By: Delano Mondragon on 11-04-2022 Sodium [Moles/Vol] 138 mmol/L 136-146 [facility] Specific gravity Auto test s trip (U) [Rel density]Ordered By: Millie Burgos on 11-04-2022 Specific gravity (U) [Rel density] 1.013 1.001-1.030 [facility] Squamous epithelial cells de tection in urine sediment by light microscopyOrdered By: Millie Burgos on 11-04-2022 Epithelial cells.squamous LM Ql (Urine sed) 0-1 [HPF] 0-2 [facility] Troponin I.cardiac [Mass/vol ume] in Serum or Plasma by High sensitivity methodOrdered By: Millie Burgos on 11-04-2022 Troponin I.cardiac High sensitivity method [Mass/Vol] 10 pg/mL 0-20 [facility] Urea nitrogen [Mass/volume] in Serum or PlasmaOrdered By: Delano Mondragon on 11-04-2022 Urea nitrogen [Mass/Vol] 52 mg/dL 9-23 [facility] Urine bacteria detection by automated methodOrdered By: Millie Burgos on 11-04-2022 Bacteria Auto Ql (U) None seen None Seen [facility] Urine clarity by refractomet ry automatedOrdered By: Millie Burgos on 11-04-2022 Clarity Refractometry automated (U) Clear Clear [facility] Urine glucose measurement by automated test strip (mass/volume)Ordered By: Millie Burgos on 11-04-2022 Glucose Auto test strip (U) [Mass/Vol] 100 mg/dL Normal [facility] Urine hemoglobin detection b y automated test stripOrdered By: Millie Burgos on 11-04-2022 Hemoglobin Auto test strip Ql (U) 1+ Negative [facility] Urine leukocyte esterase det ection by automated test stripOrdered By: Millie Burgos on 11-04-2022 Leukocyte esterase Auto test strip Ql (U) Negative Negative [facility] Urobilinogen Auto test strip (U) [Mass/Vol]Ordered By: Millie Burgos on 11-04-2022 Urobilinogen (U) [Mass/Vol] Normal mg/dL Normal [facility] WBC Auto (Bld) [#/Vol]Ordere d By: Delano Mondragon on 11-04-2022 WBC (Bld) [#/Vol] 12.2 10*3/uL 4.1-10.5 [facility] pH Auto test strip (U)Ordere d By: Millie Burgos on 11-04-2022 pH (U) 5.5 [pH] 5.0-9.0 [facility] Albumin [Mass/volume] in Ser um or PlasmaOrdered By: Ada Uriostegui on 11-02-2022 Albumin [Mass/Vol] 3.3 g/dL 3.2-5.5 [facility] Automated erythrocytes count in urine sediment (number/area)Ordered By: Ada Uriostegui on 11-02-2022 RBC Auto (Urine sed) [#/Area] 1-2 [HPF] 0-4 [facility] Automated leukocytes count i n urine sediment (number/area)Ordered By: Ada Uriostegui on 11-02-2022 WBC Auto (Urine sed) [#/Area] 0-1 [HPF] 0-4 [facility] Bilirubin Test strip Ql (U)O rdered By: Ada Uriostegui on 11-02-2022 Bilirubin Ql (U) Negative Negative [facility] CT biopsyOrdered By: Jonathan christensen on 11-02-2022 Transferrin [Mass/Vol] 270 mg/dL 180-380 [facility] Calcium [Mass/volume] in Ser um or PlasmaOrdered By: Ada Uriostegui on 11-02-2022 Calcium [Mass/Vol] 8.3 mg/dL 8.2-10.2 [facility] Carbon dioxide, total [Moles /volume] in Serum or PlasmaOrdered By: Ada Uriostegui on 11-02-2022 CO2 [Moles/Vol] 18.0 mmol/L 22.0-30.0 [facility] Chloride [Moles/volume] in S james or PlasmaOrdered By: Ada Uriostegui on 02-27-2023 Chloride [Moles/Vol] 112 mmol/L 95-114 [facility] Color Auto (U)Ordered By: Ab akhil Uriostegui on 11-02-2022 Color (U) Yellow Yellow [facility] Creatinine and Glomerular fi ltration rate.predicted panel (S/P/Bld)Ordered By: Ada Uriostegui on 11-02-2022 Creatinine [Mass/Vol] 5.16 mg/dL 0.64-1.27 [facility] Comment on above: Delta: 5.79 on 11/01 Erythrocyte distribution wid th Auto (RBC) [Ratio]Ordered By: Ada Uriostegui on 11-02-2022 Erythrocyte distribution width (RBC) [Ratio] 14.4 % 12.0-14.8 [facility] Estimated glomerular filtrat ion rate (GFR) non- AmericanOrdered By: Ada Uriostegui on 11-02-2022 GFR/1.73 sq M.predicted among non-blacks MDRD (S/P/Bld) [Vol rate/Area] 12 mL/Min [facility] Ferritin [Mass/volume] in Se rum or PlasmaOrdered By: Ada Uriostegui on 11-02-2022 Ferritin [Mass/Vol] 434.0 ng/mL 23.9-336.2 [facility] Glucose [Mass/volume] in Ser um or PlasmaOrdered By: Ada Uriostegui on 11-02-2022 Glucose [Mass/Vol] 165 mg/dL 70-100 [facility] Comment on above: ADA recommended refe rence rangeRandom Glucose Reference Range is dependent on time and content of last meal. Glucose of more than 200 mg/dL in a nonstressed, ambulatory subject supports the diagnosis of Diabetes Mellitus. Hematocrit Auto (Bld) [Volum e fraction]Ordered By: Ada Uriostegui on 11-02-2022 Hematocrit (Bld) [Volume fraction] 30.1 % 38.8-50.0 [facility] Hemoglobin [Mass/volume] in BloodOrdered By: Ada Uriostegui on 11-02-2022 Hemoglobin (Bld) [Mass/Vol] 9.8 g/dL 13.0-17.0 [facility] Iron [Mass/volume] in Serum or PlasmaOrdered By: Ada Uriostegui on 11-02-2022 Iron [Mass/Vol] 41 ug/dL 40-160 [facility] Iron binding capacity [Mass/ volume] in Serum or PlasmaOrdered By: Ada Uriostegui on 11-02-2022 Iron binding capacity [Mass/Vol] 378 ug/dL 255-450 [facility] Iron saturation [Mass Fracti on] in Serum or PlasmaOrdered By: Ada Uriostegui on 11-02-2022 Iron saturation [Mass fraction] 10.8 % 20-50 [facility] Ketones Auto test strip (U) [Mass/Vol]Ordered By: Ada Uriostegui on 11-02-2022 Ketones (U) [Mass/Vol] Negative [facility] C hemistry - challengeOrdered By: Ada Uriostegui on 11-02-2022 Magnesium [Mass/Vol] 1.7 mg/dL 1.6-2.6 [facility] - UrinalysisOrder ed By: Ada Uriostegui on 11-02-2022 Hyaline casts LM Ql (Urine sed) None seen [LPF] 0-8 [facility] Leukocytes [#/volume] correc scott for nucleated erythrocytes in Blood by Automated counOrdered By: Ada Uriostegui on 11-02-2022 WBC corrected for nucl RBC Auto (Bld) [#/Vol] 10.9 10*3/uL 4.1-10.5 [facility] MCH Auto (RBC) [Entitic mass ]Ordered By: Ada Uriostegui on 11-02-2022 MCH (RBC) [Entitic mass] 29.8 pg 27.5-35.2 [facility] MCHC Auto (RBC) [Mass/Vol]Or dered By: Ada Uriostegui on 11-02-2022 MCHC (RBC) [Mass/Vol] 32.5 g/dL 32.5-35.6 [facility] MCV Auto (RBC) [Entitic vol] Ordered By: Ada Uriostegui on 11-02-2022 MCV (RBC) [Entitic vol] 91.5 fL 83.5-101 [facility] Nitrite Test strip Ql (U)Ord ered By: Ada Uriostegui on 11-02-2022 Nitrite Ql (U) Negative Negative [facility] No Panel InformationOrdered By: Ada Uriostegui on 11-02-2022 25-Hydroxy Vitamin D Total 12.4 ng/mL 30-100 [facility] Comment on above: VITAMIN D STATUS 25( [place])VITAMIN D RANGE (ng/mL) Deficient <20 Insufficient 20 to <30Sufficient 30 to 100Reference: Sophy MF,Glendy NC, Nitin RAMOS, et al. Evaluation,treatment, and prevention of vitamin D deficiency; an Endocrine Society clinical practice guideline. JCEM. 2010; 96(7):1911-30. Estimated GFR () 14 mL/Min [facility] Comment on above: GFR estimated refere nce range: According to KDOQI guidelines, <60 ml/min/1.73m2 is sufficient to diagnose a patient with chronic kidney disease. Pharmacy Creatinine Clearance (Chem N/A [facility] Parathyrin.intact [Mass/volu me] in Serum or PlasmaOrdered By: Ada Uriostegui on 11-02-2022 Parathyrin.intact [Mass/Vol] 204.7 pg/mL 12-88 [facility] Phosphate [Mass/volume] in S james or PlasmaOrdered By: Ada Uriostegui on 11-02-2022 Phosphate [Mass/Vol] 3.9 mg/dL 2.5-4.6 [facility] Platelet mean volume Auto (B ld) [Entitic vol]Ordered By: Ada Uriostegui on 11-02-2022 Platelet mean volume (Bld) [Entitic vol] 7.0 fL 6.6-10.1 [facility] Platelets Auto (Bld) [#/Vol] Ordered By: Ada Uriostegui on 11-02-2022 Platelets (Bld) [#/Vol] 323 10*3/uL 150-450 [facility] Potassium [Moles/volume] in Serum or PlasmaOrdered By: Ada Uriostegui on 11-02-2022 Potassium [Moles/Vol] 5.9 mmol/L 3.5-5.1 [facility] Protein Auto test strip (U) [Mass/Vol]Ordered By: Ada Uriostegui on 11-02-2022 Protein (U) [Mass/Vol] 300 mg/dL Negative Fi [facility] RBC Auto (Bld) [#/Vol]Ordere d By: Ada Uriostegui on 11-02-2022 RBC (Bld) [#/Vol] 3.29 10*6/uL 3.90-5.60 [facility] Serum or plasma anion gap de terminationOrdered By: Ada Uriostegui on 11-02-2022 Anion gap [Moles/Vol] 12.9 mmol/L 6.0-15.0 [facility] Sodium [Moles/volume] in Ser um or PlasmaOrdered By: Ada Uriostegui on 11-02-2022 Sodium [Moles/Vol] 137 mmol/L 136-146 [facility] Specific gravity Auto test s trip (U) [Rel density]Ordered By: Ada Uriostegui on 11-02-2022 Specific gravity (U) [Rel density] 1.011 1.001-1.030 [facility] Squamous epithelial cells de tection in urine sediment by light microscopyOrdered By: Ada Uriostegui on 11-02-2022 Epithelial cells.squamous LM Ql (Urine sed) None seen [HPF] 0-2 [facility] Urate [Mass/volume] in Serum or PlasmaOrdered By: Ada Uriostegui on 11-02-2022 Urate [Mass/Vol] 5.3 mg/dL 2.6-7.2 [facility] Urea nitrogen [Mass/volume] in Serum or PlasmaOrdered By: Ada Uriostegui on 11-02-2022 Urea nitrogen [Mass/Vol] 58 mg/dL 9-23 [facility] Urine bacteria detection by automated methodOrdered By: Ada Uriostegui on 11-02-2022 Bacteria Auto Ql (U) None seen None Seen [facility] Urine clarity by refractomet ry automatedOrdered By: Ada Uriostegui on 11-02-2022 Clarity Refractometry automated (U) Clear Clear [facility] Urine glucose measurement by automated test strip (mass/volume)Ordered By: Ada Uriostegui on 11-02-2022 Glucose Auto test strip (U) [Mass/Vol] 250 mg/dL Normal [facility] Urine hemoglobin detection b y automated test stripOrdered By: Ada Uriostegui on 11-02-2022 Hemoglobin Auto test strip Ql (U) 1+ Negative [facility] Urine leukocyte esterase det ection by automated test stripOrdered By: Ada Uriostegui on 11-02-2022 Leukocyte esterase Auto test strip Ql (U) Negative Negative [facility] Urobilinogen Auto test strip (U) [Mass/Vol]Ordered By: Ada Uriostegui on 11-02-2022 Urobilinogen (U) [Mass/Vol] Normal mg/dL Normal [facility] pH Auto test strip (U)Ordere d By: Ada Uriostegui on 11-02-2022 pH (U) 5.5 [pH] 5.0-9.0 [facility] Activated partial thrombopla stin time (aPTT) in platelet poor plasma by coagulation aOrdered By: Mary Hill on 11-01-2022 aPTT Coag (PPP) [Time] 34.7 s 25.1-36.5 [facility] Alkaline phosphatase [Enzyma tic activity/volume] in Serum or PlasmaOrdered By: Mary Hill on 11-01-2022 ALP [Catalytic activity/Vol] 48 U/L 32-92 [facility] Aspartate aminotransferase [ Enzymatic activity/volume] in Serum or PlasmaOrdered By: Mary Hill on 11-01-2022 AST [Catalytic activity/Vol] 22 U/L 10-42 [facility] Basophils Auto (Bld) [#/Vol] Ordered By: Mary Hill on 11-01-2022 Basophils (Bld) [#/Vol] 0.1 10*3/uL 0.0-0.2 [facility] Basophils/100 WBC Auto (Bld) Ordered By: Mary Hill on 11-01-2022 Basophils/100 WBC (Bld) 0.5 % . [facility] Bilirubin.total [Mass/volume ] in Serum or PlasmaOrdered By: Mary Hill on 11-01-2022 Bilirubin [Mass/Vol] 0.4 mg/dL 0.3-1.2 [facility] Body fluid albumin measureme nt (mass/volume)Ordered By: Mary Hill on 11-01-2022 Albumin (Body fld) [Mass/Vol] 3.4 g/dL 3.2-5.5 [facility] Calcium [Mass/volume] in Ser um or PlasmaOrdered By: Mary Hill on 11-01-2022 Calcium [Mass/Vol] 8.6 mg/dL 8.2-10.2 [facility] Carbon dioxide, total [Moles /volume] in Serum or PlasmaOrdered By: Mary Hill on 11-01-2022 CO2 [Moles/Vol] 16.4 mmol/L 22.0-30.0 [facility] Chloride [Moles/volume] in S james or PlasmaOrdered By: Mary Hill on 11-01-2022 Chloride [Moles/Vol] 109 mmol/L 95-114 [facility] Creatinine and Glomerular fi ltration rate.predicted panel (S/P/Bld)Ordered By: Mary Hill on 11-01-2022 Creatinine [Mass/Vol] 5.79 mg/dL 0.64-1.27 [facility] Eosinophils Auto (Bld) [#/Vo l]Ordered By: Mary Hill on 11-01-2022 Eosinophils (Bld) [#/Vol] 0.3 10*3/uL 0.0-0.45 [facility] Eosinophils/100 WBC Auto (Bl d)Ordered By: Mary Hill on 11-01-2022 Eosinophils/100 WBC (Bld) 2.8 % . [facility] Erythrocyte distribution wid th Auto (RBC) [Ratio]Ordered By: Mary Hill on 11-01-2022 Erythrocyte distribution width (RBC) [Ratio] 14.9 % 12.0-14.8 [facility] Estimated glomerular filtrat ion rate (GFR) non- AmericanOrdered By: Mary Hill on 11-01-2022 GFR/1.73 sq M.predicted among non-blacks MDRD (S/P/Bld) [Vol rate/Area] 10 mL/Min [facility] Fecal occult blood detection by immunochemistryOrdered By: Mary Hill on 11-01-2022 Hemoglobin.gastrointes tinal Ql (Stl) [facility] Hemoglobin.gastrointes tinal Ql (Stl) [facility] Globulin Calc (S) [Mass/Vol] Ordered By: Mary Hill on 11-01-2022 Globulin (S) [Mass/Vol] 4.0 g/dL [facility] Glucose Glucometer (BldC) [M ass/Vol]Ordered By: Mary Hill on 11-01-2022 Glucose [Mass/Vol] 55 mg/dL [facility] Comment on above: Random Glucose Refer ence Range is dependent on time and content of last meal. Glucose of more than 200 mg/dL in a nonstressed, ambulatory subject supports the diagnosis of Diabetes Mellitus. Glucose [Mass/volume] in Ser um or PlasmaOrdered By: Mary Hill on 11-01-2022 Glucose [Mass/Vol] 80 mg/dL 70-100 [facility] Comment on above: ADA recommended refe rence rangeRandom Glucose Reference Range is dependent on time and content of last meal. Glucose of more than 200 mg/dL in a nonstressed, ambulatory subject supports the diagnosis of Diabetes Mellitus. Hematocrit Auto (Bld) [Volum e fraction]Ordered By: Mary Hill on 11-01-2022 Hematocrit (Bld) [Volume fraction] 29.9 % 38.8-50.0 [facility] Hemoglobin [Mass/volume] in BloodOrdered By: Mary Hill on 11-01-2022 Hemoglobin (Bld) [Mass/Vol] 9.8 g/dL 13.0-17.0 [facility] Laboratory - Chemistry and C hemistry - challengeOrdered By: Mary Hill on 11-01-2022 Natriuretic peptide B (Bld) [Mass/Vol] 32.0 pg/mL 5-100 [facility] Laboratory - CoagulationOrde red By: Mary Hill on 11-01-2022 PT Coag (PPP) [Time] 12.3 s 9.0-12.9 [facility] Leukocytes [#/volume] correc scott for nucleated erythrocytes in Blood by Automated counOrdered By: Mary Hill on 11-01-2022 WBC corrected for nucl RBC Auto (Bld) [#/Vol] 12.0 10*3/uL 4.1-10.5 [facility] Lymphocytes Auto (Bld) [#/Vo l]Ordered By: Mary Hill on 11-01-2022 Lymphocytes (Bld) [#/Vol] 1.7 10*3/uL 1.00-4.8 [facility] Lymphocytes/100 WBC Auto (Bl d)Ordered By: Mary Hill on 11-01-2022 Lymphocytes/100 WBC (Bld) 14.6 % . [facility] MCH Auto (RBC) [Entitic mass ]Ordered By: Mary Hill on 11-01-2022 MCH (RBC) [Entitic mass] 29.6 pg 27.5-35.2 [facility] MCHC Auto (RBC) [Mass/Vol]Or dered By: Mary Hill on 11-01-2022 MCHC (RBC) [Mass/Vol] 32.7 g/dL 32.5-35.6 [facility] MCV Auto (RBC) [Entitic vol] Ordered By: Mary Hill on 11-01-2022 MCV (RBC) [Entitic vol] 90.6 fL 83.5-101 [facility] Monocyte %Ordered By: Jacki Hill on 11-01-2022 Monocyte % 23 umol/L 11-35 [facility] Monocyte distribution width [Entitic volume] in Blood by AutomatedOrdered By: Mary Hill on 11-01-2022 Monocyte distribution width Auto (Bld) [Entitic vol] 14.78 % 0.00-20.00 [facility] Monocytes Auto (Bld) [#/Vol] Ordered By: Mary Hill on 11-01-2022 Monocytes (Bld) [#/Vol] 1.1 10*3/uL 0.0-0.8 [facility] Monocytes/100 WBC Auto (Bld) Ordered By: Mary Hill on 11-01-2022 Monocytes/100 WBC (Bld) 9.6 % . [facility] Neutrophils Auto (Bld) [#/Vo l]Ordered By: Mary Hill on 11-01-2022 Neutrophils (Bld) [#/Vol] 8.7 10*3/uL 1.8-7.7 [facility] Neutrophils/100 WBC Auto (Bl d)Ordered By: Mary Hill on 11-01-2022 Neutrophils/100 WBC (Bld) 72.5 % . [facility] No Panel InformationOrdered By: Mary Hill on 11-01-2022 Bedside Glucose Comment See comment [facility] Comment on above: Glu2: WILL NOTIFY DR /RN Estimated GFR () 13 mL/Min [facility] Comment on above: GFR estimated refere nce range: According to KDOQI guidelines, <60 ml/min/1.73m2 is sufficient to diagnose a patient with chronic kidney disease. Pharmacy Creatinine Clearance (Chem 23.31 [facility] Nucleated erythrocytes [Pres ence] in Blood by Automated countOrdered By: Mary Hill on 11-01-2022 Nucleated RBC Auto Ql (Bld) 0.1 /100{WBC} 0-0.5 [facility] Platelet mean volume Auto (B ld) [Entitic vol]Ordered By: Mary Hill on 11-01-2022 Platelet mean volume (Bld) [Entitic vol] 7.0 fL 6.6-10.1 [facility] Platelet poor plasma interna tional normalized ratio (INR) by coagulation assay (relatOrdered By: Mary Hill on 11-01-2022 INR Coag (PPP) [Relative time] 1.1 {INR} [facility] Comment on above: INR Therapeutic Rang e [...] 11-01-2022 Platelets (Bld) [#/Vol] 347 10*3/uL 150-450 [facility] Potassium [Moles/volume] in Serum or PlasmaOrdered By: Mary Hill on 11-01-2022 Potassium [Moles/Vol] 4.9 mmol/L 3.5-5.1 [facility] Protein [Mass/volume] in Ser um or PlasmaOrdered By: Mary Hill on 11-01-2022 Protein [Mass/Vol] 7.4 g/dL 6.1-7.9 [facility] RBC Auto (Bld) [#/Vol]Ordere d By: Mary Hill on 11-01-2022 RBC (Bld) [#/Vol] 3.30 10*6/uL 3.90-5.60 [facility] Serum or plasma alanine lawson otransferase measurement without P-5'-P (enzymatic activiOrdered By: Mary Hill on 11-01-2022 ALT No additional P-5'-P [Catalytic activity/Vol] 28 U/L 10-60 [facility] Serum or plasma albumin/glob ulin mass ratioOrdered By: Mary Hill on 11-01-2022 Albumin/Globulin [Mass ratio] 0.9 {ratio} [facility] Serum or plasma anion gap de terminationOrdered By: Mary Hill on 11-01-2022 Anion gap [Moles/Vol] 17.5 mmol/L 6.0-15.0 [facility] Sodium [Moles/volume] in Ser um or PlasmaOrdered By: Mary Hill on 11-01-2022 Sodium [Moles/Vol] 138 mmol/L 136-146 [facility] Troponin I.cardiac [Mass/vol ume] in Serum or Plasma by High sensitivity methodOrdered By: Mary Hill on 11-01-2022 Troponin I.cardiac High sensitivity method [Mass/Vol] 7 pg/mL 0-20 [facility] Urea nitrogen [Mass/volume] in Serum or PlasmaOrdered By: Mary Hill on 11-01-2022 Urea nitrogen [Mass/Vol] 59 mg/dL 9-23 [facility] WBC Auto (Bld) [#/Vol]Ordere d By: Mary Hill on 11-01-2022 WBC (Bld) [#/Vol] 12.0 10*3/uL 4.1-10.5 [facility] VL Extremity Venous Duplex Zo Leiva 10-09-2022 VL Extremity Venous Duplex [place] [...] called to Shirley at Dr. Francois 12:35pm. 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 [facility] Creatinine and Glomerular fi ltration rate.predicted panel (S/P/Bld)Ordered By: Yolie Noe on 09-23-2022 Creatinine [Mass/Vol] 5.82 mg/dL 0.64-1.27 [facility] Eosinophils Auto (Bld) [#/Vo l]Ordered By: Yolie Noe on 09-23-2022 Eosinophils (Bld) [#/Vol] 0.3 10*3/uL 0.0-0.45 [facility] Eosinophils/100 WBC Auto (Bl d)Ordered By: Yolie Noe on 09-23-2022 Eosinophils/100 WBC (Bld) 2.6 % . [facility] Erythrocyte distribution wid th Auto (RBC) [Ratio]Ordered By: Yolie Noe on 09-23-2022 Erythrocyte distribution width (RBC) [Ratio] 14.0 % 12.0-14.8 [facility] Estimated glomerular filtrat ion rate (GFR) non- AmericanOrdered By: Yolie Noe on 09-23-2022 GFR/1.73 sq M.predicted among non-blacks MDRD (S/P/Bld) [Vol rate/Area] 10 mL/Min [facility] Globulin Calc (S) [Mass/Vol] Ordered By: Yolie Noe on 09-23-2022 Globulin (S) [Mass/Vol] 3.6 g/dL [facility] Glucose Glucometer (BldC) [M ass/Vol]Ordered By: SVITLANA VILLANUEVA on 09-23-2022 Glucose [Mass/Vol] 151 mg/dL [facility] Comment on above: Random Glucose Refer ence Range is dependent on time and content of last meal. Glucose of more than 200 mg/dL in a nonstressed, ambulatory subject supports the diagnosis of Diabetes Mellitus. Hematocrit Auto (Bld) [Volum e fraction]Ordered By: Yolie Noe on 09-23-2022 Hematocrit (Bld) [Volume fraction] 33.0 % 38.8-50.0 [facility] Hemoglobin [Mass/volume] in BloodOrdered By: Yolie Noe on 09-23-2022 Hemoglobin (Bld) [Mass/Vol] 11.1 g/dL 13.0-17.0 [facility] Leukocytes [#/volume] correc scott for nucleated erythrocytes in Blood by Automated counOrdered By: Yolie Noe on 09-23-2022 WBC corrected for nucl RBC Auto (Bld) [#/Vol] 9.9 10*3/uL 4.1-10.5 [facility] Lymphocytes Auto (Bld) [#/Vo l]Ordered By: Yolie Noe on 09-23-2022 Lymphocytes (Bld) [#/Vol] 2.7 10*3/uL 1.00-4.8 [facility] Lymphocytes/100 WBC Auto (Bl d)Ordered By: Yolie Noe on 09-23-2022 Lymphocytes/100 WBC (Bld) 27.6 % . [facility] MCH Auto (RBC) [Entitic mass ]Ordered By: Yolie Noe on 09-23-2022 MCH (RBC) [Entitic mass] 29.5 pg 27.5-35.2 [facility] MCHC Auto (RBC) [Mass/Vol]Or dered By: Yolie Noe on 09-23-2022 MCHC (RBC) [Mass/Vol] 33.5 g/dL 32.5-35.6 [facility] MCV Auto (RBC) [Entitic vol] Ordered By: Yolie Noe on 09-23-2022 MCV (RBC) [Entitic vol] 88.2 fL 83.5-101 [facility] Monocyte distribution width [Entitic volume] in Blood by AutomatedOrdered By: Yolie Noe on 09-23-2022 Monocyte distribution width Auto (Bld) [Entitic vol] 16.48 % 0.00-20.00 [facility] Monocytes Auto (Bld) [#/Vol] Ordered By: Yolie Newmangosia on 09-23-2022 Monocytes (Bld) [#/Vol] 0.9 10*3/uL 0.0-0.8 [facility] Monocytes/100 WBC Auto (Bld) Ordered By: Yolie Hasmukh on 09-23-2022 Monocytes/100 WBC (Bld) 8.8 % . [facility] Neutrophils Auto (Bld) [#/Vo l]Ordered By: Yolie Newmangosia on 09-23-2022 Neutrophils (Bld) [#/Vol] 5.9 10*3/uL 1.8-7.7 [facility] Neutrophils/100 WBC Auto (Bl d)Ordered By: Yolie Newmangosia on 09-23-2022 Neutrophils/100 WBC (Bld) 60.2 % . [facility] No Panel InformationOrdered By: Yolie Noe on 09-23-2022 Estimated GFR () 12 mL/Min [facility] Comment on above: GFR estimated refere nce range: According to KDOQI guidelines, <60 ml/min/1.73m2 is sufficient to diagnose a patient with chronic kidney disease. Pharmacy Creatinine Clearance (Chem 22.77 [facility] Nucleated erythrocytes [Pres ence] in Blood by Automated countOrdered By: Yolie Hasmukh on 09-23-2022 Nucleated RBC Auto Ql (Bld) 0.1 /100{WBC} 0-0.5 [facility] Platelet mean volume Auto (B ld) [Entitic vol]Ordered By: Yolie Newmangosia on 09-23-2022 Platelet mean volume (Bld) [Entitic vol] 7.0 fL 6.6-10.1 [facility] Platelets Auto (Bld) [#/Vol] Ordered By: Yolie Hasmukh on 09-23-2022 Platelets (Bld) [#/Vol] 420 10*3/uL 150-450 [facility] Protein [Mass/volume] in Ser um or PlasmaOrdered By: Yolie Noe on 09-23-2022 Protein [Mass/Vol] 6.9 g/dL 6.1-7.9 [facility] RBC Auto (Bld) [#/Vol]Ordere d By: Yolie Noe on 09-23-2022 RBC (Bld) [#/Vol] 3.74 10*6/uL 3.90-5.60 [facility] Serum or plasma alanine lawson otransferase measurement without P-5'-P (enzymatic activiOrdered By: Yolie Noe on 09-23-2022 ALT No additional P-5'-P [Catalytic activity/Vol] 19 U/L 10-60 [facility] Serum or plasma albumin/glob ulin mass ratioOrdered By: Yolie Newmangosia on 09-23-2022 Albumin/Globulin [Mass ratio] 0.9 {ratio} [facility] Serum or plasma alkaline elliot sphatase measurement (enzymatic activity/volume)Ordered By: Yolie Hasmukh on 09-23-2022 ALP [Catalytic activity/Vol] 61 U/L 32-92 [facility] Serum or plasma anion gap de terminationOrdered By: Yolie Noe on 09-23-2022 Anion gap [Moles/Vol] 14.3 mmol/L 6.0-15.0 [facility] Serum or plasma aspartate am inotransferase measurement (enzymatic activity/volume)Ordered By: Yolie Newmangosia on 09-23-2022 AST [Catalytic activity/Vol] 15 U/L 10-42 [facility] Serum or plasma calcium shante urement (mass/volume)Ordered By: Yolie Hasmukh on 09-23-2022 Calcium [Mass/Vol] 8.6 mg/dL 8.2-10.2 [facility] Serum or plasma chloride alber surement (moles/volume)Ordered By: Yolie Hasmukh on 09-23-2022 Chloride [Moles/Vol] 107 mmol/L 95-114 [facility] Serum or plasma glucose shante urement (mass/volume)Ordered By: Yolie Noe on 09-23-2022 Glucose [Mass/Vol] 150 mg/dL 70-100 [facility] Comment on above: ADA recommended refe rence rangeRandom Glucose Reference Range is dependent on time and content of last meal. Glucose of more than 200 mg/dL in a nonstressed, ambulatory subject supports the diagnosis of Diabetes Mellitus. Serum or plasma potassium me asurement (moles/volume)Ordered By: Yolie Noe on 09-23-2022 Potassium [Moles/Vol] 4.0 mmol/L 3.5-5.1 [facility] Serum or plasma sodium measu rement (moles/volume)Ordered By: Yolie Noe on 09-23-2022 Sodium [Moles/Vol] 139 mmol/L 136-146 [facility] Serum or plasma total biliru bin measurement (mass/volume)Ordered By: Yolie Noe on 09-23-2022 Bilirubin [Mass/Vol] 0.3 mg/dL 0.3-1.2 [facility] Serum or plasma total carbon dioxide measurement (moles/volume)Ordered By: Yolie Noe on 09-23-2022 CO2 [Moles/Vol] 21.7 mmol/L 22.0-30.0 [facility] Serum or plasma urea nitroge n measurement (mass/volume)Ordered By: Yolie Noe on 09-23-2022 Urea nitrogen [Mass/Vol] 70 mg/dL 9- [facility] WBC Auto (Bld) [#/Vol]Ordere d By: Yoliemarie Noe on 09-23-2022 WBC (Bld) [#/Vol] 9.9 10*3/uL 4.1-10.5 [facility] Albumin [Mass/volume] in Ser um or PlasmaOrdered By: Ada Uriostegui on 08-03-2022 Albumin [Mass/Vol] 3.4 g/dL 3.2-5.[address] [facility] [address] biopsyOrdered By: Jonathan christensen on 08-03-2022 Transferrin [Mass/Vol] 270 mg/dL 180-380 [facility] Creatinine and Glomerular fi ltration rate.predicted panel (S/P/Bld)Ordered By: Ada Uriostegui on 08-03-2022 Creatinine [Mass/Vol] 4.98 mg/dL 0.64-1.27 [facility] Erythrocyte distribution wid th Auto (RBC) [Ratio]Ordered By: Ada Uriostegui on 08-03-2022 Erythrocyte distribution width (RBC) [Ratio] 14.4 % 12.0-14.8 [facility] Estimated glomerular filtrat ion rate (GFR) non- AmericanOrdered By: Ada Uriostegui on 08-03-2022 GFR/1.73 sq M.predicted among non-blacks MDRD (S/P/Bld) [Vol rate/Area] 12 mL/Min [facility] Ferritin [Mass/volume] in Se rum or PlasmaOrdered By: Ada Uriostegui on 08-03-2022 Ferritin [Mass/Vol] 331.3 ng/mL 23.9-336.2 [facility] Hematocrit Auto (Bld) [Volum e fraction]Ordered By: Ada Uriostegui on 08-03-2022 Hematocrit (Bld) [Volume fraction] 31.6 % 38.8-50.0 [facility] Hemoglobin [Mass/volume] in BloodOrdered By: Ada Uriostegui on 08-03-2022 Hemoglobin (Bld) [Mass/Vol] 10.3 g/dL 13.0-17.0 [facility] Iron [Mass/volume] in Serum or PlasmaOrdered By: Ada Uriostegui on 08-03-2022 Iron [Mass/Vol] 90 ug/dL 40-160 [facility] Iron binding capacity [Mass/ volume] in Serum or PlasmaOrdered By: Ada Moody on 08-03-2022 Iron binding capacity [Mass/Vol] 378 ug/dL 255-450 [facility] Iron saturation [Mass Fracti on] in Serum or PlasmaOrdered By: Ada Uriostegui on 08-03-2022 Iron saturation [Mass fraction] 23.0 % 20-50 [facility] MCH Auto (RBC) [Entitic mass ]Ordered By: Ada Uriostegui on 08-03-2022 MCH (RBC) [Entitic mass] 29.2 pg 27.5-35.2 [facility] MCHC Auto (RBC) [Mass/Vol]Or dered By: Ada Uriostegui on 08-03-2022 MCHC (RBC) [Mass/Vol] 32.6 g/dL 32.5-35.6 [facility] MCV Auto (RBC) [Entitic vol] Ordered By: Ada Uriostegui on 08-03-2022 MCV (RBC) [Entitic vol] 89.7 fL 83.5-101 [facility] No Panel InformationOrdered By: Ada Uriostegui on 08-03-2022 25-Hydroxy Vitamin D Total 14.6 ng/mL 30-100 [facility] Comment on above: VITAMIN D STATUS 25( [place])VITAMIN D RANGE (ng/mL) Deficient <20 Insufficient 20 to <30Sufficient 30 to 100Reference: Sophy MF,Glendy NC, Nitin RAMOS, et al. Evaluation,treatment, and prevention of vitamin D deficiency; an Endocrine Society clinical practice guideline. JCEM. 2010; 96(7):1911-30. Estimated GFR () 15 mL/Min [facility] Comment on above: GFR estimated refere nce range: According to KDOQI guidelines, <60 ml/min/1.73m2 is sufficient to diagnose a patient with chronic kidney disease. Pharmacy Creatinine Clearance (Chem N/A [facility] Phosphate [Mass/volume] in S james or PlasmaOrdered By: Ada Uriostegui on 08-03-2022 Phosphate [Mass/Vol] 3.1 mg/dL 2.5-4.6 [facility] Platelet mean volume Auto (B ld) [Entitic vol]Ordered By: Ada Uriostegui on 08-03-2022 Platelet mean volume (Bld) [Entitic vol] 7.2 fL 6.6-10.1 [facility] Platelets Auto (Bld) [#/Vol] Ordered By: Ada Uriostegui on 08-03-2022 Platelets (Bld) [#/Vol] 390 10*3/uL 150-450 [facility] RBC Auto (Bld) [#/Vol]Ordere d By: Ada Uriostegui on 08-03-2022 RBC (Bld) [#/Vol] 3.52 10*6/uL 3.90-5.60 [facility] Serum or plasma anion gap de terminationOrdered By: Ada Uriostegui on 08-03-2022 Anion gap [Moles/Vol] 14.6 mmol/L 6.0-15.0 [facility] Serum or plasma calcium shante urement (mass/volume)Ordered By: Ada Uriostegui on 08-03-2022 Calcium [Mass/Vol] 9.0 mg/dL 8.2-10.2 [facility] Serum or plasma chloride alber surement (moles/volume)Ordered By: Ada Uriostegui on 08-03-2022 Chloride [Moles/Vol] 105 mmol/L 95-114 [facility] Serum or plasma glucose shante urement (mass/volume)Ordered By: Ada Uriostegui on 08-03-2022 Glucose [Mass/Vol] 188 mg/dL 70-100 [facility] Comment on above: ADA recommended refe rence rangeRandom Glucose Reference Range is dependent on time and content of last meal. Glucose of more than 200 mg/dL in a nonstressed, ambulatory subject supports the diagnosis of Diabetes Mellitus. Serum or plasma intact parat hyroid hormone measurement (mass/volume)Ordered By: Ada Uriostegui on 08-03-2022 Parathyrin.intact [Mass/Vol] 151.8 pg/mL 12 [facility] Serum or plasma potassium me asurement (moles/volume)Ordered By: Ada Uriostegui on 08-03-2022 Potassium [Moles/Vol] 5.1 mmol/L 3.5-5.1 [facility] Serum or plasma sodium measu rement (moles/volume)Ordered By: Ada Uriostegui on 08-03-2022 Sodium [Moles/Vol] 139 mmol/L 136-146 [facility] Serum or plasma total carbon dioxide measurement (moles/volume)Ordered By: Ada Uriostegui on 08-03-2022 CO2 [Moles/Vol] 24.5 mmol/L 22.0-30.0 [facility] Serum or plasma urea nitroge n measurement (mass/volume)Ordered By: Ada Uriostegui on 08-03-2022 Urea nitrogen [Mass/Vol] 60 mg/dL 9-23 [facility] Serum or plasma uric acid me asurement (mass/volume)Ordered By: Ada Uriostegui on 08-03-2022 Urate [Mass/Vol] 5.6 mg/dL 2.6-7.2 [facility] WBC Auto (Bld) [#/Vol]Ordere d By: Ada Uriostegui on 08-03-2022 WBC (Bld) [#/Vol] 9.5 10*3/uL 4.1-10.5 [facility] Basophils Auto (Bld) [#/Vol] Ordered By: Yosef Castillo on 07-29-2022 Basophils (Bld) [#/Vol] 0.1 10*3/uL 0.0-0.2 [facility] Basophils/100 WBC Auto (Bld) Ordered By: Yosef Castillo on 07-29-2022 Basophils/100 WBC (Bld) 0.9 % . [facility] Beta-hydroxybutyric acid alber surementOrdered By: Yosef Castillo on 07-29-2022 Beta hydroxybutyrate [Mass/Vol] 0.25 mmol/L 0.05-0.27 [facility] Body fluid albumin measureme nt (mass/volume)Ordered By: Yosef Castillo on 07-29-2022 Albumin (Body fld) [Mass/Vol] 3.6 g/dL 3.2-5.5 [facility] Creatinine and Glomerular fi ltration rate.predicted panel (S/P/Bld)Ordered By: Yosef Castillo on 07-29-2022 Creatinine [Mass/Vol] 5.97 mg/dL 0.64-1.27 [facility] Eosinophils Auto (Bld) [#/Vo l]Ordered By: Yosef Castillo on 07-29-2022 Eosinophils (Bld) [#/Vol] 0.3 10*3/uL 0.0-0.45 [facility] Eosinophils/100 WBC Auto (Bl d)Ordered By: Yosef Castillo on 07-29-2022 Eosinophils/100 WBC (Bld) 2.9 % . [facility] Erythrocyte distribution wid th Auto (RBC) [Ratio]Ordered By: Yosef Castillo on 07-29-2022 Erythrocyte distribution width (RBC) [Ratio] 14.1 % 12.0-14.8 [facility] Estimated glomerular filtrat ion rate (GFR) non- AmericanOrdered By: Yosef Castillo on 07-29-2022 GFR/1.73 sq M.predicted among non-blacks MDRD (S/P/Bld) [Vol rate/Area] 10 mL/Min [facility] Globulin Calc (S) [Mass/Vol] Ordered By: Yosef Castillo on 07-29-2022 Globulin (S) [Mass/Vol] 3.3 g/dL [facility] Glucose Glucometer (BldC) [M ass/Vol]Ordered By: Yosef Castillo on 07-29-2022 Glucose [Mass/Vol] 266 mg/dL [facility] Comment on above: Random Glucose Refer ence Range is dependent on time and content of last meal. Glucose of more than 200 mg/dL in a nonstressed, ambulatory subject supports the diagnosis of Diabetes Mellitus. Hematocrit Auto (Bld) [Volum e fraction]Ordered By: Yosef Castillo on 07-29-2022 Hematocrit (Bld) [Volume fraction] 32.7 % 38.8-50.0 [facility] Hemoglobin [Mass/volume] in BloodOrdered By: Yosef Castillo on 07-29-2022 Hemoglobin (Bld) [Mass/Vol] 10.8 g/dL 13.0-17.0 [facility] Laboratory - Chemistry and C hemistry - challengeOrdered By: Yosef Castillo on 07-29-2022 CO2 [Moles/Vol] 22.9 mmol/L 24.0-29.0 [facility] HCO3 (Bld) [Moles/Vol] 21.7 mmol/L 23.0-29.0 F [facility] Lipase [Catalytic activity/Vol] 38.0 U/L 22-51 [facility] Laboratory - Hematology and Cell countsOrdered By: Yosef Castillo on 07-29-2022 Nucleated RBC/100 WBC (Bld) [Ratio] 0.0 % 0-0.5 [facility] Leukocytes [#/volume] in Blo od by Automated countOrdered By: Yosef Castillo on 07-29-2022 WBC (Bld) [#/Vol] 11.0 10*3/uL 4.5-11.0 [facility] Lymphocytes Auto (Bld) [#/Vo l]Ordered By: Yosef Castillo on 07-29-2022 Lymphocytes (Bld) [#/Vol] 2.0 10*3/uL 1.00-4.8 [facility] Lymphocytes/100 WBC Auto (Bl d)Ordered By: Yosef Castillo on 07-29-2022 Lymphocytes/100 WBC (Bld) 17.9 % . [facility] MCH Auto (RBC) [Entitic mass ]Ordered By: Yosef Castillo on 07-29-2022 MCH (RBC) [Entitic mass] 29.4 pg 27.5-35.2 [facility] MCHC Auto (RBC) [Mass/Vol]Or dered By: Yosef Castillo on 07-29-2022 MCHC (RBC) [Mass/Vol] 33.0 g/dL 32.5-35.6 [facility] MCV Auto (RBC) [Entitic vol] Ordered By: Yosef Castillo on 07-29-2022 MCV (RBC) [Entitic vol] 88.8 fL 83.5-101 [facility] Monocytes Auto (Bld) [#/Vol] Ordered By: Yosef Castillo on 07-29-2022 Monocytes (Bld) [#/Vol] 0.7 10*3/uL 0.0-0.8 [facility] Monocytes/100 WBC Auto (Bld) Ordered By: Yosef Castillo on 07-29-2022 Monocytes/100 WBC (Bld) 5.9 % . [facility] Neutrophils Auto (Bld) [#/Vo l]Ordered By: Yosef Castillo on 07-29-2022 Neutrophils (Bld) [#/Vol] 8.0 10*3/uL 1.8-7.7 [facility] Neutrophils/100 WBC Auto (Bl d)Ordered By: Yosef Castillo on 07-29-2022 Neutrophils/100 WBC (Bld) 72.4 % . [facility] No Panel InformationOrdered By: Yosef Castillo on 07-29-2022 Blood Gas Critical Value See comment [facility] Comment on above: Critical Value metz d on: 07/29/2022 at 00:48 Blood Gas Sample Site Venous Fir [facility] FiO2 21 % [facility] Venous Blood Base Excess -3.7 mmol/L -3.0-3.0 [facility] Venous Blood Oxygen Content 5.6 mmol/L 6.6-9.7 [facility] Venous Blood Oxygen Saturation 79.1 % 73.0-76.0 [facility] Venous Blood Partial Pressure CO2 40.4 mm[Hg] 38.0-50.0 [facility] Venous Blood Partial Pressure O2 41.6 mm[Hg] 35.0-45.0 [facility] Venous Blood pH 7.35 7.32-7.43 [facility] Estimated GFR () 12 mL/Min [facility] Comment on above: GFR estimated refere nce range: According to KDOQI guidelines, <60 ml/min/1.73m2 is sufficient to diagnose a patient with chronic kidney disease. Pharmacy Creatinine Clearance (Chem 21.83 [facility] Platelet mean volume Auto (B ld) [Entitic vol]Ordered By: Yosef Castillo on 07-29-2022 Platelet mean volume (Bld) [Entitic vol] 7.6 fL 6.6-10.1 [facility] Platelets Auto (Bld) [#/Vol] Ordered By: Yosef Castillo on 07-29-2022 Platelets (Bld) [#/Vol] 382 10*3/uL 150-450 [facility] [facility] Protein [Mass/volume] in Ser um or PlasmaOrdered By: Yosef Castillo on 07-29-2022 Protein [Mass/Vol] 6.9 g/dL 6.1-7.9 [facility] RBC Auto (Bld) [#/Vol]Ordere d By: Yosef Castillo on 07-29-2022 RBC (Bld) [#/Vol] 3.68 10*6/uL 3.90-5.60 [facility] Serum or plasma alanine lawson otransferase measurement without P-5'-P (enzymatic activiOrdered By: Yosef Castillo on 07-29-2022 ALT No additional P-5'-P [Catalytic activity/Vol] 17 U/L 10-60 [facility] Serum or plasma albumin/glob ulin mass ratioOrdered By: Yosfe Castillo on 07-29-2022 Albumin/Globulin [Mass ratio] 1.1 {ratio} [facility] Serum or plasma alkaline elliot sphatase measurement (enzymatic activity/volume)Ordered By: Yosef Castillo on 07-29-2022 ALP [Catalytic activity/Vol] 52 U/L 32-92 [facility] Serum or plasma anion gap de terminationOrdered By: Yosef Castillo on 07-29-2022 Anion gap [Moles/Vol] TNP [facility] Comment on above: Test not performed Serum or plasma aspartate am inotransferase measurement (enzymatic activity/volume)Ordered By: Yosef Castillo on 07-29-2022 AST [Catalytic activity/Vol] 26 U/L 10-42 [facility] Serum or plasma calcium shante urement (mass/volume)Ordered By: Yosef Castillo on 07-29-2022 Calcium [Mass/Vol] 8.9 mg/dL 8.2-10.2 [facility] Serum or plasma chloride alber surement (moles/volume)Ordered By: Yosef Castillo on 07-29-2022 Chloride [Moles/Vol] 105 mmol/L 95-114 [facility] Serum or plasma glucose shante urement (mass/volume)Ordered By: Yosef Castillo on 07-29-2022 Glucose [Mass/Vol] 233 mg/dL 70-100 [facility] Comment on above: ADA recommended refe rence rangeRandom Glucose Reference Range is dependent on time and content of last meal. Glucose of more than 200 mg/dL in a nonstressed, ambulatory subject supports the diagnosis of Diabetes Mellitus. Serum or plasma potassium me asurement (moles/volume)Ordered By: Yosef Castillo on 07-29-2022 Potassium [Moles/Vol] 4.4 mmol/L 3.5-5.1 [facility] Serum or plasma sodium measu rement (moles/volume)Ordered By: Yosef Castillo on 07-29-2022 Sodium [Moles/Vol] 142 mmol/L 136-146 [facility] Serum or plasma total biliru bin measurement (mass/volume)Ordered By: Yosef Castillo on 07-29-2022 Bilirubin [Mass/Vol] 0.7 mg/dL 0.3-1.2 [facility] Serum or plasma total carbon dioxide measurement (moles/volume)Ordered By: Yosef Castillo on 07-29-2022 CO2 [Moles/Vol] 21.9 mmol/L 22.0-30.0 [facility] Serum or plasma urea nitroge n measurement (mass/volume)Ordered By: Yosef Castillo on 07-29-2022 Urea nitrogen [Mass/Vol] 74 mg/dL 05-29 [facility] TSH DL <= 0.005 mIU/L QnOrde red By: Yosef Castillo on 07-29-2022 TSH Qn 2.69 m[IU]/L 0.45-5.33 [facility] Thyroxine (T4) free [Mass/vo lume] in Serum or PlasmaOrdered By: Yosef Castillo on 07-29-2022 Free T4 [Mass/Vol] 0.78 ng/dL 0.61-1.12 [facility] Troponin I.cardiac [Mass/vol ume] in Serum or Plasma by High sensitivity methodOrdered By: Yosef Castillo on 07-29-2022 Troponin I.cardiac High sensitivity method [Mass/Vol] 7 pg/mL 0-20 [facility] C [place] 07-20-2022 C Wound --- Final [...] <=1 V Vancomycin S 1 V Normal [facility] Comment on above: Performed By: #### W DC #### [facility] (DEFAULT) [address] [place] [address] [facility] [address] [place] [id number] No Panel Informationon 07-17 Body mass index (BMI) [Percentile] Per age and sex 0.1 {percentile} Invalid Interpretation Code [place] [employer] [id number] Per age and sex 0.1 {percentile} Invalid Interpretation Code [place] [employer] Body fluid albumin measureme nt (mass/volume)Ordered By: Ada Uriostegui on 06-27-2022 Albumin (Body fld) [Mass/Vol] 3.6 g/dL 3.2-5.5 [facility] CT biopsyOrdered By: Jonathan christensen on 06-27-2022 Transferrin [Mass/Vol] 286 mg/dL 180-380 [facility] Creatinine and Glomerular fi ltration rate.predicted panel (S/P/Bld)Ordered By: Ada Uriostegui on 06-27-2022 Creatinine [Mass/Vol] 4.86 mg/dL 0.64-1.27 [facility] Erythrocyte distribution wid th Auto (RBC) [Ratio]Ordered By: Ada Uriostegui on 06-27-2022 Erythrocyte distribution width (RBC) [Ratio] 14.0 % 12.0-14.8 [facility] Estimated glomerular filtrat ion rate (GFR) non- AmericanOrdered By: Ada Uriostegui on 06-27-2022 GFR/1.73 sq M.predicted among non-blacks MDRD (S/P/Bld) [Vol rate/Area] 13 mL/Min [facility] Ferritin [Mass/volume] in Se rum or PlasmaOrdered By: Ada Moody on 06-27-2022 Ferritin [Mass/Vol] 383.6 ng/mL 23.9-336.2 [facility] Hematocrit Auto (Bld) [Volum e fraction]Ordered By: Ada Moody on 06-27-2022 Hematocrit (Bld) [Volume fraction] 37.2 % 38.8-50.0 [facility] Hemoglobin [Mass/volume] in BloodOrdered By: Ada Moody on 06-27-2022 Hemoglobin (Bld) [Mass/Vol] 12.1 g/dL 13.0-17.0 [facility] Iron [Mass/volume] in Serum or PlasmaOrdered By: Ada Moody on 06-27-2022 Iron [Mass/Vol] 70 ug/dL 40-160 [facility] Iron binding capacity [Mass/ volume] in Serum or PlasmaOrdered By: Ada Moody on 06-27-2022 Iron binding capacity [Mass/Vol] 400 ug/dL 255-450 [facility] Iron saturation [Mass Fracti on] in Serum or PlasmaOrdered By: Ada Moody on 06-27-2022 Iron saturation [Mass fraction] 17.0 % 20-50 [facility] Laboratory - Chemistry and C hemistry - challengeOrdered By: Ada Whelanr on 06-27-2022 Magnesium [Mass/Vol] 1.9 mg/dL 1.6-2.6 [facility] MCH Auto (RBC) [Entitic mass ]Ordered By: Ada Uriostegui on 06-27-2022 MCH (RBC) [Entitic mass] 29.2 pg 27.5-35.2 [facility] MCHC Auto (RBC) [Mass/Vol]Or dered By: Ada Moody on 06-27-2022 MCHC (RBC) [Mass/Vol] 32.6 g/dL 32.5-35.6 [facility] MCV Auto (RBC) [Entitic vol] Ordered By: Ada Moody on 06-27-2022 MCV (RBC) [Entitic vol] 89.7 fL 83.5-101 [facility] No Panel InformationOrdered By: Ada Uriostegui on 06-27-2022 25-Hydroxy Vitamin D Total 13.3 ng/mL 30-100 [facility] Comment on above: VITAMIN D STATUS 25( [place])VITAMIN D RANGE (ng/mL) Deficient <20 Insufficient 20 to <30Sufficient 30 to 100Reference: Sophy MF,Glendy NC, Nitin RAMOS, et al. Evaluation,treatment, and prevention of vitamin D deficiency; an Endocrine Society clinical practice guideline. JCEM. 2010; 96(7):1911-30. Estimated GFR () 15 mL/Min [facility] Comment on above: GFR estimated refere nce range: According to KDOQI guidelines, <60 ml/min/1.73m2 is sufficient to diagnose a patient with chronic kidney disease. Pharmacy Creatinine Clearance (Chem N/A [facility] Phosphate [Mass/volume] in S james or PlasmaOrdered By: Ada Uriostegui on 06-27-2022 Phosphate [Mass/Vol] 4.1 mg/dL 2.5-4.6 [facility] Platelet mean volume Auto (B ld) [Entitic vol]Ordered By: Ada Uriostegui on 06-27-2022 Platelet mean volume (Bld) [Entitic vol] 7.3 fL 6.6-10.1 [facility] Platelets Auto (Bld) [#/Vol] Ordered By: Ada Uriostegui on 06-27-2022 Platelets (Bld) [#/Vol] 454 10*3/uL 150-450 [facility] RBC Auto (Bld) [#/Vol]Ordere d By: Ada Moody on 06-27-2022 RBC (Bld) [#/Vol] 4.15 10*6/uL 3.90-5.60 [facility] Serum or plasma anion gap de terminationOrdered By: Ada Uriostegui on 06-27-2022 Anion gap [Moles/Vol] 15.2 mmol/L 6.0-15.0 [facility] Serum or plasma calcium shante urement (mass/volume)Ordered By: Ada Uriostegui on 06-27-2022 Calcium [Mass/Vol] 8.9 mg/dL 8.2-10.2 [facility] Serum or plasma chloride alber surement (moles/volume)Ordered By: Ada Uriostegui on 06-27-2022 Chloride [Moles/Vol] 103 mmol/L 95-114 [facility] Serum or plasma glucose shante urement (mass/volume)Ordered By: Ada Uriostegui on 06-27-2022 Glucose [Mass/Vol] 115 mg/dL 70-100 [facility] Comment on above: ADA recommended refe rence rangeRandom Glucose Reference Range is dependent on time and content of last meal. Glucose of more than 200 mg/dL in a nonstressed, ambulatory subject supports the diagnosis of Diabetes Mellitus. Serum or plasma intact parat hyroid hormone measurement (mass/volume)Ordered By: Ada Uriostegui on 06-27-2022 Parathyrin.intact [Mass/Vol] 168.5 pg/mL [facility] Serum or plasma potassium me asurement (moles/volume)Ordered By: Ada Uriostegui on 06-27-2022 Potassium [Moles/Vol] 4.6 mmol/L 3.5-5.1 [facility] Serum or plasma sodium measu rement (moles/volume)Ordered By: Ada Uriostegui on 06-27-2022 Sodium [Moles/Vol] 137 mmol/L 136-146 [facility] Serum or plasma total carbon dioxide measurement (moles/volume)Ordered By: Ada Uriostegui on 06-27-2022 CO2 [Moles/Vol] 23.4 mmol/L 22.0-30.0 [facility] Serum or plasma urea nitroge n measurement (mass/volume)Ordered By: Ada Uriostegui on 06-27-2022 Urea nitrogen [Mass/Vol] 52 mg/dL 05-29 [facility] WBC Auto (Bld) [#/Vol]Ordere d By: Ada Uriostegui on 06-27-2022 WBC (Bld) [#/Vol] 9.4 10*3/uL 4.1-10.5 [facility] Covid-19 PCR (CVDTBH)on 06-06 SARS-CoV-2 (COVID-19) RNA SHAY+probe Ql (Unsp spec) Not detected Normal NOT DETECTED [facility] Comment on above: Result Comment: This test is not yet approved or cleared by the [place] FDA. When there are no FDA-approved or cleared tests available, and other criteria are met, FDA can make tests available under an emergency access mechanism called an Emergency Use Authorization (EUA). The EUA for this test is supported by the [employer] Worker of Health and Human Service's (HHS's) declaration [...] consistent with SARS-CoV-2. Performed By: #### [facility] #### [facility] [address] [address] [address] Monroe Winn Blood hemoglobin measurement (mass/volume)Ordered By: Ada Uriostegui on 05-16-2022 Hemoglobin (Bld) [Mass/Vol] 11.2 g/dL 13.0-17.0 [facility] Body fluid albumin measureme nt (mass/volume)Ordered By: Ada Uriostegui on 05-16-2022 Albumin (Body fld) [Mass/Vol] 3.5 g/dL 3.2-5.5 [facility] CT biopsyOrdered By: Jonathan christensen on 05-16-2022 Transferrin [Mass/Vol] 300 mg/dL 180-380 [facility] Creatinine and Glomerular fi ltration rate.predicted panel (S/P/Bld)Ordered By: Ada Uriostegui on 05-16-2022 Creatinine [Mass/Vol] 5.05 mg/dL 0.64-1.27 [facility] Erythrocyte distribution wid th Auto (RBC) [Ratio]Ordered By: Ada Uriostegui on 05-16-2022 Erythrocyte distribution width (RBC) [Ratio] 13.7 % 12.0-14.8 [facility] Estimated glomerular filtrat ion rate (GFR) non- AmericanOrdered By: Ada Uriostegui on 05-16-2022 GFR/1.73 sq M.predicted among non-blacks MDRD (S/P/Bld) [Vol rate/Area] 12 mL/Min [facility] Ferritin [Mass/volume] in Se rum or PlasmaOrdered By: Ada Uriostegui on 05-16-2022 Ferritin [Mass/Vol] 447.8 ng/mL 23.9-336.2 [facility] Hematocrit Auto (Bld) [Volum e fraction]Ordered By: Ada Uriostegui on 05-16-2022 Hematocrit (Bld) [Volume fraction] 33.5 % 38.8-50.0 [facility] Iron [Mass/volume] in Serum or PlasmaOrdered By: Ada Uriostegui on 05-16-2022 Iron [Mass/Vol] 73 ug/dL 40-160 [facility] Iron binding capacity [Mass/ volume] in Serum or PlasmaOrdered By: Ada Uriostegui on 05-16-2022 Iron binding capacity [Mass/Vol] 420 ug/dL 255-450 [facility] Iron saturation [Mass Fracti on] in Serum or PlasmaOrdered By: Ada Uriostegui on 05-16-2022 Iron saturation [Mass fraction] 17.0 % 20-50 [facility] Laboratory - Chemistry and C hemistry - challengeOrdered By: Ada Uriostegui on 05-16-2022 Magnesium [Mass/Vol] 2.0 mg/dL 1.6-2.6 [facility] MCH Auto (RBC) [Entitic mass ]Ordered By: Ada Uriostegui on 05-16-2022 MCH (RBC) [Entitic mass] 29.8 pg 27.5-35.2 [facility] MCHC Auto (RBC) [Mass/Vol]Or dered By: Ada Uriostegui on 05-16-2022 MCHC (RBC) [Mass/Vol] 33.4 g/dL 32.5-35.6 [facility] MCV Auto (RBC) [Entitic vol] Ordered By: Ada Uriostegui on 05-16-2022 MCV (RBC) [Entitic vol] 89.1 fL 83.5-101 [facility] No Panel InformationOrdered By: Ada Uriostegui on 05-16-2022 25-Hydroxy Vitamin D Total 13.9 ng/mL 30-100 [facility] Comment on above: VITAMIN D STATUS 25( [place])VITAMIN D RANGE (ng/mL) Deficient <20 Insufficient 20 to <30 Sufficient 30 to 100 Reference: Glendy Marshall, Nitin RAMOS, et al. Evaluation,treatment, and prevention of vitamin D deficiency; an Endocrine Society clinical practice guideline. JCEM. 2010; 96(7):1911-30. VITAMIN D STATUS 25( [place])VITAMIN D RANGE (ng/mL) Deficient <20 Insufficient 20 to <30Sufficient 30 to 100Reference: Glendy Marshall, Nitin RAMOS, et al. Evaluation,treatment, and prevention of vitamin D deficiency; an Endocrine Society clinical practice guideline. JCEM. 2010; 96(7):1911-30. Estimated GFR () 15 mL/Min [facility] Comment on above: GFR estimated refere nce range: According to KDOQI guidelines, <60 ml/min/1.73m2 is sufficient to diagnose a patient with chronic kidney disease. Pharmacy Creatinine Clearance (Chem N/A [facility] Phosphate [Mass/volume] in S james or PlasmaOrdered By: Ada Uriostegui on 05-16-2022 Phosphate [Mass/Vol] 3.9 mg/dL 2.5-4.6 [facility] Platelet mean volume Auto (B ld) [Entitic vol]Ordered By: Ada Uriostegui on 05-16-2022 Platelet mean volume (Bld) [Entitic vol] 6.9 fL 6.6-10.1 [facility] Platelets Auto (Bld) [#/Vol] Ordered By: Ada Uriostegui on 05-16-2022 Platelets (Bld) [#/Vol] 496 10*3/uL 150-450 [facility] RBC Auto (Bld) [#/Vol]Ordere d By: Ada Uriostegui on 05-16-2022 RBC (Bld) [#/Vol] 3.76 10*6/uL 3.90-5.60 [facility] Serum or plasma anion gap de terminationOrdered By: Ada Uriostegui on 05-16-2022 Anion gap [Moles/Vol] 13.7 mmol/L 6.0-15.0 [facility] Serum or plasma calcium shante urement (mass/volume)Ordered By: Ada Uriostegui on 05-16-2022 Calcium [Mass/Vol] 9.2 mg/dL 8.2-10.2 [facility] Serum or plasma chloride alber surement (moles/volume)Ordered By: Ada Uriostegui on 05-16-2022 Chloride [Moles/Vol] 105 mmol/L 95-114 [facility] Serum or plasma glucose shante urement (mass/volume)Ordered By: Ada Uriostegui on 05-16-2022 Glucose [Mass/Vol] 177 mg/dL 70-100 [facility] Comment on above: ADA recommended refe [...] Uriostegui on 05-16-2022 Parathyrin.intact [Mass/Vol] 121.3 pg/mL 12- [facility] Serum or plasma potassium me asurement (moles/volume)Ordered By: Ada Uriostegui on 05-16-2022 Potassium [Moles/Vol] 4.9 mmol/L 3.5-5.1 [facility] Serum or plasma sodium measu rement (moles/volume)Ordered By: Ada Uriostegui on 05-16-2022 Sodium [Moles/Vol] 137 mmol/L 136-146 [facility] Serum or plasma total carbon dioxide measurement (moles/volume)Ordered By: Ada Uriostegui on 05-16-2022 CO2 [Moles/Vol] 23.2 mmol/L 22.0-30.0 [facility] Serum or plasma urea nitroge n measurement (mass/volume)Ordered By: Ada Uriostegui on 05-16-2022 Urea nitrogen [Mass/Vol] 54 mg/dL 05-29 [facility] WBC Auto (Bld) [#/Vol]Ordere d By: Ada Uriostegui on 05-16-2022 WBC (Bld) [#/Vol] 9.8 10*3/uL 4.1-10.5 [facility] SINGLE ANTIGEN CLASS 1on METHOD Class I Single Antigen Normal Th e [facility] Comment on above: Order Comment: Some of [...] to frequency. Performed By: #### 4 1533, 77138, 09365, 74331, 66885, 26486 #### [facility] [address] SPECIFICITY Normal [facility] Comment on above: Order Comment: Some of [...] 34 B:76 Performed By: #### 4 1533, 65916, 33109, 80088, 10551, 67386 #### [facility] [address] SINGLE ANTIGEN CLASS 2on COMMENTS Normal [facility] Comment on above: Order Comment: Some of [...] Specificites Found Performed By: #### 4 1533, 43484, 32194, 87370, 21422, 33960 #### [facility] [address] Result Comment: Clas s I Antigen Microbeads Potential specificites added to the watch list. METHOD Class II Single Antigen Normal T he [facility] Comment on above: Order Comment: Some of [...] to frequency. Performed By: #### 4 1533, 71377, 47498, 53770, 04382, 25087 #### [facility] [address] [place] [id number], [facility] SIGNED BY Normal [facility] Comment on above: Order Comment: Some of [...] to frequency. Result Comment: Delano Nuno, MS,CHT(RAJESH),MT(ASCP) Field Support Technician, Transplant Immunology Performed By: #### 4 1533, 16417, 50727, 44674, 82649, 93964 #### [facility] [address] [facility]. [address] BLOOD TYPE AND RHon 04-07-20 ABO INTERPRETATION A Normal [facility] Comment on above: Performed By: #### 4 1533, 85527, 85147, 57035, 66354, 39166 #### [facility] [address] [facility] RH INTERPRETATION Positive Normal [facility] Comment on above: Performed By: #### 4 1533, 10858, 46331, 33508, 74355, 22499 #### [facility] [address] BNP (B-TYPE NATRIURETIC PEPT BALTAZAR)on 04-07-2022 Natriuretic peptide B (Bld) [Mass/Vol] 32 pg/mL Normal 0-100 [facility] Comment on above: Result Comment: Give n the appropriate clinical setting a BNP result of >100 pg/mL indicates congestive heart failure. Performed By: #### 4 1533, 51561, 99241, 17722, 37122, 53690 #### [facility] [address] CBC W/DIFFon 04-07-2022 ABS IMM GRANS 0.1 10*3/uL Normal 0.0-0.2 [facility] Comment on above: Performed By: #### 4 1533, 85438, 56636, 94633, 80843, 22271 #### [facility] [address] ABS NEUTROPHILS 6.3 10*3/uL Normal 1.6-7.6 [facility] Comment on above: Performed By: #### 4 1533, 02862, 80303, 37478, 25011, 89332 #### [facility] [address] [place] [address], [facility] Basophils (Bld) [#/Vol] 0.1 10*3/uL Normal 0.0-0.2 [facility] Comment on above: Performed By: #### 4 1533, 21719, 72062, 17163, 69069, 45226 #### [facility] [address] [place] [address], [facility] Basophils/100 WBC (Bld) 0.5 % Normal 0.0-1.0 [facility] Comment on above: Performed By: #### 4 1533, 79763, 38032, 10767, 25610, 54267 #### [facility] [address] [place] [address], [facility] Eosinophils (Bld) [#/Vol] 0.3 10*3/uL Normal 0.0-0.5 [facility] Comment on above: Performed By: #### 4 1533, 99884, 58001, 85617, 51824, 83229 #### [facility] [address] [place] [address], [facility] Eosinophils/100 WBC (Bld) 2.5 % Normal 0.0-6.0 [facility] Comment on above: Performed By: #### 4 1533, 49466, 35090, 81200, 68508, 10095 #### [facility] [address] [place] [address], [facility] Erythrocyte distribution width (RBC) [Ratio] 13.2 % Normal 11.5-15.0 [facility] Comment on above: Performed By: #### 4 1533, 94426, 78833, 24504, 06140, 67335 #### [facility] [address] [place] [id number], [facility] Hematocrit (Bld) [Volume fraction] 34.6 % Low 39.0-50.0 [facility] Comment on above: Performed By: #### 4 1533, 76039, 57912, 83915, 84059, 73860 #### [facility] [address] [place] [address], [facility] Hemoglobin (Bld) [Mass/Vol] 11.4 g/dL Low 13.0-17.0 [facility] Comment on above: Performed By: #### 4 1533, 34433, 14212, 20452, 32887, 97317 #### [facility] [address] [place] [address], [facility] IMMATURE GRANS 1.0 % Normal 0.0-1.0 [facility] Comment on above: Performed By: #### 4 1533, 06792, 67520, 04332, 37485, 73950 #### [facility] [address] [facility] [address], [facility] Lymphocytes (Bld) [#/Vol] 2.5 10*3/uL Normal 1.2-4.0 [facility] Comment on above: Performed By: #### 4 1533, 03578, 61584, 72366, 45678, 88981 #### [facility] [address] [facility] [address], [facility] Lymphocytes/100 WBC (Bld) 25.2 % Normal 20.0-45.0 [facility] Comment on above: Performed By: #### 4 1533, 82243, 50365, 30624, 13066, 96924 #### [facility] [address] [facility] [place] [address], [facility] MCH (RBC) [Entitic mass] 29.3 pg Normal 27.0-33.0 [facility] Comment on above: Performed By: #### 4 1533, 86859, 40181, 22258, 83326, 14724 #### [facility] [address] [facility] [address], [facility] MCHC (RBC) [Mass/Vol] 32.9 g/dL Normal 32.0-35.0 [facility] Comment on above: Performed By: #### 4 1533, 99749, 93309, 60857, 93772, 26565 #### [facility] [address] [place] [address], [facility] MCV (RBC) [Entitic vol] 88.9 fL Normal 82.0-98.0 [facility] Comment on above: Performed By: #### 4 1533, 24227, 59856, 54273, 89288, 42133 #### [facility] [address] [facility] [place] [address], [facility] Monocytes (Bld) [#/Vol] 0.8 10*3/uL Normal 0.1-1.0 [facility] Comment on above: Performed By: #### 4 1533, 43063, 30902, 58816, 34079, 80717 #### [facility] [address] [facility] [address], [facility] MONOS 8.3 % Normal 5.0-12.0 [facility] Comment on above: Performed By: #### 4 1533, 70183, 64332, 56900, 17680, 23722 #### [facility] [address] [facility] [address], [facility] Neutrophils/100 WBC (Bld) 62.5 % Normal 40.0-72.0 [facility] Comment on above: Performed By: #### 4 1533, 44499, 93367, 59703, 14520, 01558 #### [facility] [address] [facility] [place] [address], [facility] Nucleated RBC/100 WBC (Bld) [Ratio] 0 % Normal 0-0 [facility] Comment on above: Performed By: #### 4 1533, 27627, 47193, 48251, 60628, 78575 #### [facility] [address] [facility] [place] [address], [facility] PLAT CNT 442 10*3/uL High 150-400 [facility] Comment on above: Performed By: #### 4 1533, 06437, 43956, 63829, 53250, 43952 #### [facility] [address] [facility] [place] [address], [facility] RBC (Bld) [#/Vol] 3.89 10*6/uL Low 4.20-5.70 [facility] Comment on above: Performed By: #### 4 1533, 69470, 95483, 78040, 19606, 87216 #### [facility] [address] [place] [address], [facility] WBC (Bld) [#/Vol] 10.00 10*3/uL Normal 4.00-10.60 [facility] Comment on above: Performed By: #### 4 1533, 33709, 93541, 87596, 05680, 73873 #### [facility] [address] [place] [address], [facility] CHEST AND LATERALon 04-07-20 CHEST AND LATERAL [facility] Department of Radiology [address] [place] [id number] ===== Patient Name: EVANS FORTE : 1970 Sex: M Age: Race: White Pt. Location: 20 Patient Status: D Ordered Date: 04/07/2022 1:10:00 [...] change. Electronically signed: Rehan Zaragoza. Transcribed by: [email or web address], User Resident: Electronically Signed by: REHAN ZARAGOZA @ 04/08/2022 07:43 AM Normal [facility] CMV IGG BLOODon 04-07-2022 CMV IGG 0.00 Normal [facility] Comment on above: Order Comment: only males 40 and older Result Comment: NORM AL RANGES: < OR = 0.9O NEGATIVE ; NO DETECTABLE IgG ANTIBODY TO CMV 0.91 - 1.09 EQUIVOCAL; REPEAT TESTING SUGGESTED > OR = 1.10 POSITIVE ; INDICATES PRESENCE OF DETECTABLE IgG ANTIBODY TO CMV Performed By: #### 4 1533, 07428, 54255, 10016, 62562, 84104 #### [facility] [address] [place] [address], [place] COMP METABOLIC PANELon 04-07 Albumin [Mass/Vol] 4.2 g/dL Normal 3.5-5.7 [facility] Comment on above: Performed By: #### 0 0121, 69535, 36284 #### [facility] [address] [place] [address], [place] ALKALINE PHOSPH 72 IU/L Normal 34-104 [facility] Comment on above: Performed By: #### 0 0121, 83417, 45363 #### [facility] [address] [place] [address], [place] ALT [Catalytic activity/Vol] 18 U/L Normal 7-52 [facility] Comment on above: Performed By: #### 0 0121, 74393, 04237 #### [facility] [address] [place] [address], [place] AST [Catalytic activity/Vol] 11 U/L Low 13-39 [facility] Comment on above: Performed By: #### 0 0121, 48920, 37670 #### [facility] [address] [place] [address], [place] Bilirubin [Mass/Vol] 0.3 mg/dL Normal 0.3-1.0 [facility] Comment on above: Performed By: #### 0 0121, 09165, 03176 #### [facility] [address] [place] [address], [place] Calcium [Mass/Vol] 10.4 mg/dL High 8.6-10.3 [facility] Comment on above: Performed By: #### 0 0121, 15058, 08987 #### [facility] [address] [place] [address], [place] Chloride [Moles/Vol] 106 mmol/L Normal 98-107 [facility] Comment on above: Performed By: #### 0 0121, 14831, 69719 #### [facility] [address] [place] [address], [place] CO2 [Moles/Vol] 24 mmol/L Normal 21-31 [facility] Comment on above: Performed By: #### 0 0121, 81623, 05230 #### [facility] [address] [place] [address], [place] Creatinine [Mass/Vol] 5.07 mg/dL High 0.70-1.30 [facility] Comment on above: Performed By: #### 0 0121, 01246, 75552 #### [facility] [address] [place] [address], [facility] EGFR 13 ml/min/1.73sq m Abnormal >60 [facility] Comment on above: Result Comment: [facility]'s estimated glomerular filtration rate (eGFR) will no [...] group of individuals. Performed By: #### 0 012, 28787, 60529 #### [facility] [address] [place] [address], [facility] Glucose [Mass/Vol] 106 mg/dL High 70-100 [facility] Comment on above: Performed By: #### 0 012, 77263, 07213 #### [facility] [address] [place] [address], [facility] Potassium [Moles/Vol] 4.6 mmol/L Normal 3.5-5.1 [facility] Comment on above: Performed By: #### 0 012, 36899, 35847 #### [facility] [address] [place] [address], [facility] Protein [Mass/Vol] 7.2 g/dL Normal 6.0-8.3 [facility] Comment on above: Performed By: #### 0 012, 02232, 85578 #### [facility] [address] [place] [address], [place] Sodium [Moles/Vol] 138 mmol/L Normal 136-145 [facility] Comment on above: Performed By: #### 0 0121, 50448, 75973 #### [address] Urea nitrogen [Mass/Vol] 59 mg/dL High 7-25 [facility] Comment on above: Performed By: #### 0 0121, 23797, 23143 #### [facility] [address] CREATININE URINE RANDOMon Creatinine (U) [Mass/Vol] 79.0 mg/dL Normal [facility] Comment on above: Result Comment: Ther e are no established reference values for random urine specimens Performed By: #### 4 1533, 36365, 10442, 68989, 92417, 40633 #### [address] RENAL RECIPIENT ABDOMEN A ND PEVLIS WO CONTRASTon 04-07-2022 CT RENAL RECIPIENT ABDOMEN AND PEVLIS WO CONTRAST [facility] Department of Radiology [address] [place] [id number] ===== Patient Name: EVANS FORTE : 1970 Sex: M Age: Race: White Pt. Location: 20 Patient Status: D Ordered Date: 04/07/2022 1:10:00 PM Completed Date: 04/07/2022 01:22 PM Requesting Provider: BERTIN RUSSELL Attending Provider: BERTIN RUSSELL Report Copy To: IDANIA RICKETTS Signs & Symptoms: Z01.818 Encounter for other preprocedural examination I10 History: [place] Comments: Pre-kidney transplant work-up. Please evaluate vessels [...] arteries. Electronically signed: SAYDA GRACE. Transcribed by: [email or web address], User Resident: Electronically Signed by: SAYDA GRACE @ 04/09/2022 10:03 AM Normal [facility] Comment on above: Order Comment: Pre-k idney transplant work-up. Please evaluate vessels for kidney transplant. , Height (ft.): 6 ft 0 in , Weight (lbs): 304 DIRECT BILIon 08-02-2022 Bilirubin.direct [Mass/Vol] 0.0 mg/dL Normal 0.0-0.2 [facility] Comment on above: Performed By: #### 0 0121, 65768, 99630 #### [facility] [address] ELLY LORENZO VIRUS ABon 08-0 EB VCA IGG 3.86 Normal [facility] Comment on above: Order Comment: only males 40 and older Result Comment: NORM AL RANGES: < OR = 0.9O NEGATIVE ; NO DETECTABLE IgG ANTIBODY TO EBV-VCA 0.91 - 1.09 EQUIVOCAL; REPEAT TESTING SUGGESTED > OR = 1.10 POSITIVE ; INDICATES PRESENCE OF DETECTABLE IgG ANTIBODY TO EBV Performed By: #### 4 1533, 40965, 37628, 38007, 85053, 77442 #### [facility] [address] EB VCA IGM 0.00 Normal [facility] Comment on above: Order Comment: only males 40 and older Result Comment: NORM AL RANGES: < OR = 0.9O NEGATIVE ; NO SIGNIFICANT LEVEL OF DETECTABLE EBV-VCA IgM AB 0.91 - 1.09 EQUIVOCAL; REPEAT TESTING SUGGESTED > OR = 1.10 POSITIVE ; SIGNIFICANT LEVEL OF DETECTABLE EBV-VCA IgM AB Performed By: #### 4 1533, 93584, 14585, 46995, 81010, 89713 #### [facility] [address] HEMOGLOBIN A1Con 04-07-2022 Glucose [Moles/Vol] 174 mmol/L Normal [facility] Comment on above: Performed By: #### 4 1533, 60240, 62717, 31562, 93370, 31571 #### [facility] [address] HbA1c (Bld) [Mass fraction] 7.7 % High 4.0-6.0 [facility] Comment on above: Performed By: #### 4 1533, 78111, 69004, 17612, 12788, 44212 #### [facility] [address] [place] [address], [facility] HEPATITIS A ANTIBODY IGMon 0 04-07-2022 HEP A AB IGM Non-Reactive Normal NONREACTIVE [facility] Comment on above: Performed By: #### 4 1533, 19279, 73824, 72047, 26272, 60187 #### [facility] [address] [facility] [place] [place] [address], [facility] HEPATITIS B CORE ANTIBODYon 04-07-2022 HEP B CORE AB Non-Reactive Normal NONREACTIVE [facility] Comment on above: Performed By: #### 4 1533, 24618, 85078, 49035, 32347, 52714 #### [facility] [address] [facility] [place] [address], [facility] HEPATITIS B SURFACE ANTIBODY QUANTon 04-07-2022 HEP B SURF AB 0.95 mIU/ml Normal [facility] Comment on above: Result Comment: INTE RPRETATION: NONREACTIVE<8.00 mIU/mL INDETERMINATE8.00 - 12.00 mIU/mL REACTIVE>12 mIU/mL Performed By: #### 4 1533, 36817, 54957, 84992, 01451, 69566 #### [facility] [address] [facility] [address], [facility] HEPATITIS B SURFACE ANTIGEN QUALon 04-07-2022 HEP B SURF AG QUAL Non-Reactive Normal NONREACTIVE [facility] Comment on above: Performed By: #### 4 1533, 67051, 19906, 42434, 56293, 45853 #### [facility] [address] [facility] [address], [facility] HEPATITIS C ANTIBODYon 04-07 ANTI-HCV Non-Reactive Normal NONREACTIVE [facility] Comment on above: Performed By: #### 4 1533, 26280, 06946, 03134, 51038, 76891 #### [facility] [address] [facility]. [address] HIV1 AND 2 COMBO 4Gon 2021 HIV COMBO Negative Normal NEGATIVE [facility] Comment on above: Performed By: #### 3 0625 #### [facility] [address] [place] [address], [facility] LIPID PROFILEon 04-07-2022 Cholesterol [Mass/Vol] 174 mg/dL Normal 120-200 Th e [facility] Comment on above: Result Comment: CHOL ESTEROL REFERENCE RANGE: 20 YEARS AND OLDER CARDIOVASCULAR RISK Less than 200 mg/dl Low Risk 200 to 239 mg/dl Borderline Risk 240 mg/dl and greater High Risk Performed By: #### 0 0121, 56763, 32668 #### [facility] [address] [facility] [address] Cholesterol in HDL [Mass/Vol] 37 mg/dL Normal 23-92 [facility] Comment on above: Result Comment: Slig ht variation in normal range could be due to gender and/or age. HDL CHOLESTEROL REFERENCE RANGE: 20 years and older Cardiovascular Risk > or =60 mg/dL Desirable 40 TO 59 mg/dL Low Risk <40 mg/dL High Risk Performed By: #### 0 0121, 40146, 79644 #### [facility] [address] [facility] [place] [place] [address], [facility] Cholesterol in LDL [Mass/Vol] 84 mg/dL Normal 0-130 [facility] Comment on above: Result Comment: LDL IS A CALCULATION LDL IS ONLY VALID IF THE TRIG IS LESS THAN 400. Performed By: #### 0 0121, 81238, 53040 #### [facility] [address] [place] [address], [facility] Cholesterol.total/Chol esterol in HDL [Mass ratio] 4.7 {ratio} High .0-4.5 [facility] Comment on above: Performed By: #### 0 0121, 25051, 88064 #### [facility] [address] [place] [address], [facility] NON-HDL CHOLESTEROL 137 mg/dL Normal [facility] Comment on above: Performed By: #### 0 0121, 37958, 22424 #### [facility] [address] Triglyceride [Mass/Vol] 265 mg/dL High 40-149 [facility] Comment on above: Result Comment: TRIG LYCERIDE REFERENCE RANGE: 20 YEARS AND OLDER CARDIOVASCULAR RISK LESS THAN 150 mg/dl LOW RISK 150 TO 199 mg/dl BORDERLINE RISK 200 mg/dl AND GREATER HIGH RISK Performed By: #### 0 0121, 42207, 70834 #### [facility] [address] VLDL CHOL 53 mg/dL High 0-40 [facility] Comment on above: Performed By: #### 0 0121, 08176, 16089 #### [facility] [address] MUMPS IGG BLDon 04-07-2022 MUMPS IGG 1.24 Normal [facility] Comment on above: Result Comment: NORM AL RANGES: < OR = 0.9O NEGATIVE ; NO DETECTABLE IgG ANTIBODY TO MUMPS 0.91 - 1.09 EQUIVOCAL; REPEAT TESTING SUGGESTED > OR = 1.10 POSITIVE ; INDICATES PRESENCE OF DETECTABLE IgG ANTIBODY TO MUMPS Performed By: #### 4 1533, 95094, 12648, 23497, 51472, 91573 #### [facility] [address] RUBELLAon 04-07-2022 RUBELLA 0.81 Normal [facility] Comment on above: Result Comment: 1.09 RAN IN TRIPLICATE NORMAL RANGES: < OR = 0.9O NEGATIVE ; NO DETECTABLE IgG ANTIBODY TO RUBELLA 0.91 - 1.09 EQUIVOCAL; REPEAT TESTING SUGGESTED > OR = 1.10 POSITIVE ; INDICATES PRESENCE OF DETECTABLE IgG ANTIBODY TO RUBELLA VIRUS Performed By: #### 4 1533, 58176, 55226, 30970, 63941, 28740 #### [facility] [address] RUBEOLA MEASLES IGGon 2021 RUBEO IGG 0.57 Normal [facility] Comment on above: Result Comment: NORM AL RANGES: < OR = 0.9O NEGATIVE ; NO DETECTABLE IgG ANTIBODY TO RUBEOLA 0.91 - 1.09 EQUIVOCAL; REPEAT TESTING SUGGESTED > OR = 1.10 POSITIVE ; INDICATES PRESENCE OF DETECTABLE IgG ANTIBODY TO RUBEOLA Performed By: #### 4 1533, 01532, 10274, 76921, 03738, 40954 #### [facility] [address] [facility]. [address] SINGLE ANTIGEN CLASS 1on METHOD Class I Single Antigen Normal Th e [facility] Comment on above: Order Comment: Some of [...] to frequency. Performed By: #### 4 1533, 19017, 48329, 19343, 84392, 91024 #### [facility] [address] [facility]. [address] SINGLE ANTIGEN CLASS 2on COMMENTS Normal [facility] Comment on above: Order Comment: Some of [...] watch list. Performed By: #### 4 1533, 96819, 42534, 10616, 04914, 35818 #### [facility] [address] Result Comment: Clas s I Antigen Microbeads Potential specificites added to the watch list. CPRA 0 Normal [facility] Comment on above: Order Comment: Some [...] to frequency. Performed By: #### 4 1533, 12292, 31433, 35396, 42376, 34729 #### [facility] [address] METHOD Class II Single Antigen Normal T he [facility] Comment on above: Order Comment: Some of [...] to frequency. Performed By: #### 4 1533, 54521, 74087, 58167, 79301, 87294 #### [facility] [address] [facility] [place] [address], [facility] SIGNED BY Normal [facility] Comment on above: Order Comment: Some of [...] to frequency. Result Comment: Delano Nuno, MS,CHT(RAJESH),MT(ASCP) Field Support Technician, Transplant Immunology Performed By: #### 4 1533, 19750, 51009, 22666, 27626, 55653 #### [facility] [address] [place] [address], [facility] T PROT UR Ryne 04-07-2022 U TOTAL PROTEIN 336.4 mg/dL Normal [facility] Comment on above: Result Comment: Ther e are no established reference values for random urine specimens Performed By: #### 4 1533, 49180, 24050, 05321, 29055, 90691 #### [facility] [address] [place] [address], [facility] TB QUANTIFERON PLUSon 2021 MITOGEN MINUS NIL >10.00 Normal [facility] Comment on above: Performed By: #### 4 1533, 63397, 63617, 80647, 62071, 81739 #### [facility] [address] [facility] [address], [facility] NIL 0.02 IU/mL Normal [facility] Comment on above: Performed By: #### 4 1533, 39448, 77481, 06135, 93874, 99475 #### [facility] [address] [facility] [address] TB QUANTIFERON Negative Normal NEGATIVE [facility] Comment on above: Result Comment: Shawn tiferon TB Gold Interpretation (IU/mL): NEGATIVE: M. tuberculosis infection not likely. Nil: <=8.0 TB1 Antigen minus Nil ([id number]): <0.35 OR >=0.35; and <25% of Nil value. TB2 Antigen minus Nil ([id number]): <0.35 OR >=0.35; and <25% of Nil [...] LTBI (https://www.cdc.gov/tb/publications/guidlines/default.htm Performed By: #### 4 1533, 49330, 32383, 95717, 44285, 88400 #### [facility] [address] [place] [address], [facility] TB1 AG 0.05 IU/mL Normal [facility] Comment on above: Performed By: #### 4 1533, 55117, 87753, 02169, 09836, 90312 #### [facility] [address] [place] [address], [place] TB1 AG MINUS NIL 0.03 IU/mL Normal [facility] Comment on above: Performed By: #### 4 1533, 88995, 48555, 07834, 51494, 57854 #### [facility] [address] [facility] [place] [address], [facility] TB2 AG 0.04 IU/mL Normal [facility] Comment on above: Performed By: #### 4 1533, 11825, 62160, 57231, 46250, 92027 #### [facility] [address] [facility] [place] [address], [facility] TB2 AG MINUS NIL 0.02 IU/mL Normal [facility] Comment on above: Performed By: #### 4 1533, 44410, 45170, 20855, 84073, 25005 #### [facility] [address] [facility] [place] [address], [facility] TESTOSTERONE, FREE+SHBG+TOTA L ILon 04-07-2022 [place] Normal [facility] Comment on above: Result Comment: Test Performed by [employer] [address] [place] [address] - Released 04/08/2022 09:48 SEX HORM BIND GLOB 23 nmol/L Normal 11-80 [facility] Testosterone [Mass/Vol] 178 ng/dL Low 220-1000 [facility] TESTOSTERONE, FREE 40.8 pg/mL Low 47-244 [facility] Comment on above: Result Comment: The concentration of free testosterone is derived from a mathematical expression based on the constant for the binding of testosterone to albumin and/or sex hormone binding globulin. UA,MICROSCOPIC REQUIREDon Appearance (U) CLEAR Normal CLEAR [facility] Comment on above: Performed By: #### 4 1533, 40615, 35862, 88068, 23479, 91011 #### [facility] [address] [place] [address], [place] Bilirubin Ql (U) Negative Normal NEGATIVE [facility] Comment on above: Performed By: #### 4 1533, 20190, 85149, 72774, 86865, 08768 #### [facility] [address] [place] [address], [place] Color (U) YELLOW Normal YELLOW [facility] Comment on above: Performed By: #### 4 1533, 11928, 01422, 06343, 73084, 61925 #### [facility] [address] [place] [address], [place] EPIS OCC Normal FEW,OCC,NONE SEEN [facility] Comment on above: Performed By: #### 4 1533, 55464, 60341, 72358, 54855, 85565 #### [facility] [address] [place] [address], [place] Glucose Ql (U) 250 mg/dL Abnormal NEGATIVE [facility] Comment on above: Performed By: #### 4 1533, 27995, 54306, 96921, 77834, 59860 #### [facility] [address] [place] [address], [place] Hemoglobin Ql (U) TRACE Abnormal NEGATIVE [facility] Comment on above: Performed By: #### 4 1533, 03449, 32258, 70884, 60553, 54515 #### [facility] [address] [place] [address], [place] KETONE Negative Normal NEGATIVE [facility] Comment on above: Performed By: #### 4 1533, 89265, 46018, 89512, 09492, 05002 #### [facility] [address] [place] [address], [facility] LEUK AGNES Negative Normal NEGATIVE [facility] Comment on above: Performed By: #### 4 1533, 75182, 19682, 53229, 75643, 56469 #### [facility] [address] [place] [address], [facility] Nitrite Ql (U) Negative Normal NEGATIVE [facility] Comment on above: Performed By: #### 4 1533, 49818, 23377, 02529, 99584, 25023 #### [facility] [address] [facility] [place] [place] [address], [facility] pH (U) 5.5 [pH] Normal 5.0-8.0 [facility] Comment on above: Performed By: #### 4 1533, 77132, 53689, 22722, 62610, 52922 #### [facility] [address] [facility] [place] [address], [facility] Protein Ql (U) 100 Abnormal NEGATIVE [facility] Comment on above: Performed By: #### 4 1533, 39736, 22165, 54292, 96445, 72682 #### [facility] [address] [facility] [place] [address], [facility] RBC 0-2 Abnormal NONE SEEN [facility] Comment on above: Performed By: #### 4 1533, 88747, 88280, 69714, 28737, 80594 #### [facility] [address] [facility] [place] [address], [facility] SPEC GRAV 1.020 Normal 1.015-1.020 [facility] Comment on above: Performed By: #### 4 1533, 40280, 15103, 79570, 56159, 81040 #### [facility] [address] [place] [address] WBC UA 0-2 Abnormal NONE SEEN [facility] Comment on above: Performed By: #### 4 1533, 85049, 46293, 19517, 48036, 38322 #### [facility] [address] [facility] [address] VARICELLA ZOSTER IGGon 04-07 VARICELLA IGG 1.40 Normal [facility] Comment on above: Result Comment: NORM AL RANGES: < OR = 0.9O NEGATIVE ; NO DETECTABLE IgG ANTIBODY TO VARICELLA-ZOSTER VIRUS 0.91 - 1.09 EQUIVOCAL; REPEAT TESTING SUGGESTED > OR = 1.10 POSITIVE ; INDICATES PRESENCE OF DETECTABLE IgG ANTIBODY TO VARICELLA-ZOSTER VIRUS Performed By: #### 4 1533, 14267, 98983, 54709, 95311, 59938 #### [facility] [address] [facility] [address] Albumin [Mass/volume] in Ser um or PlasmaOrdered By: Ada Uriostegui on 02-20-2022 Albumin [Mass/Vol] 3.4 g/dL 3.2-5.5 [facility] Automated erythrocytes count in urine sediment (number/area)Ordered By: Ada Uriostegui on 02-20-2022 RBC Auto (Urine sed) [#/Area] 1-2 [HPF] 0-4 [facility] Automated leukocytes count i n urine sediment (number/area)Ordered By: Ada Uriostegui on 02-20-2022 WBC Auto (Urine sed) [#/Area] 0-1 [HPF] 0-4 [facility] Bilirubin Test strip Ql (U)O rdered By: Ada Uriostegui on 02-20-2022 Bilirubin Ql (U) Negative Negative [facility] Blood hemoglobin measurement (mass/volume)Ordered By: Ada Uriostegui on 02-20-2022 Hemoglobin (Bld) [Mass/Vol] 11.1 g/dL 13.0-17.0 [facility] CT biopsyOrdered By: Jonathan christensen on 02-20-2022 Transferrin [Mass/Vol] 284 mg/dL 180-380 [facility] Color Auto (U)Ordered By: Ab akhil Uriostegui on 02-20-2022 Color (U) Yellow Yellow [facility] Creatinine [Mass/volume] in UrineOrdered By: Ada Uriostegui on 02-20-2022 Creatinine (U) [Mass/Vol] 73.3 mg/dL [facility] Comment on above: No reference range e stablished Creatinine and Glomerular fi ltration rate.predicted panel (S/P/Bld)Ordered By: Ada Uriostegui on 02-20-2022 Creatinine [Mass/Vol] 4.65 mg/dL 0.64-1.27 [facility] Erythrocyte distribution wid th Auto (RBC) [Ratio]Ordered By: Ada Uriostegui on 02-20-2022 Erythrocyte distribution width (RBC) [Ratio] 13.9 % 12.0-14.8 [facility] Estimated glomerular filtrat ion rate (GFR) non- AmericanOrdered By: Ada Uriostegui on 02-20-2022 GFR/1.73 sq M.predicted among non-blacks MDRD (S/P/Bld) [Vol rate/Area] 13 mL/Min [facility] Ferritin [Mass/volume] in Se rum or PlasmaOrdered By: Ada Uriostegui on 02-20-2022 Ferritin [Mass/Vol] 471.8 ng/mL 23.9-336.2 [facility] Hematocrit Auto (Bld) [Volum e fraction]Ordered By: Ada Uriostegui on 02-20-2022 Hematocrit (Bld) [Volume fraction] 32.9 % 38.8-50.0 [facility] Iron [Mass/volume] in Serum or PlasmaOrdered By: Ada Uriostegui on 02-20-2022 Iron [Mass/Vol] 74 ug/dL 40-160 [facility] Iron binding capacity [Mass/ volume] in Serum or PlasmaOrdered By: Ada Uriostegui on 02-20-2022 Iron binding capacity [Mass/Vol] 398 ug/dL 255-450 [facility] Iron saturation [Mass Fracti on] in Serum or PlasmaOrdered By: Ada Uriostegui on 02-20-2022 Iron saturation [Mass fraction] 18.0 % 20-50 [facility] Ketones Auto test strip (U) [Mass/Vol]Ordered By: Ada Uriostegui on 02-20-2022 Ketones (U) [Mass/Vol] Negative Negative [facility] - Chemistry and C hemistry - challengeOrdered By: Ada Uriostegui on 02-20-2022 Magnesium [Mass/Vol] 1.9 mg/dL 1.6-2.6 [facility] - UrinalysisOrder ed By: Ada Uriostegui on 02-20-2022 Hyaline casts LM Ql (Urine sed) 0-8 [LPF] 0-8 [facility] MCH Auto (RBC) [Entitic mass ]Ordered By: Ada Uriostegui on 02-20-2022 MCH (RBC) [Entitic mass] 30.5 pg 27.5-35.2 [facility] MCHC Auto (RBC) [Mass/Vol]Or dered By: Ada Uriostegui on 02-20-2022 MCHC (RBC) [Mass/Vol] 33.8 g/dL 32.5-35.6 [facility] MCV Auto (RBC) [Entitic vol] Ordered By: Ada Uriostegui on 02-20-2022 MCV (RBC) [Entitic vol] 90.2 fL 83.5-101 [facility] Nitrite Test strip Ql (U)Ord ered By: Ada Uriostegui on 02-20-2022 Nitrite Ql (U) Negative Negative [facility] No Panel InformationOrdered By: Ada Uriostegui on 02-20-2022 25-Hydroxy Vitamin D Total 13.8 ng/mL 30-100 [facility] Comment on above: VITAMIN D STATUS 25( [place])VITAMIN D RANGE (ng/mL) Deficient <20 Insufficient 20 to <30 Sufficient 30 to 100 Reference: Sophy MF,Glendy NC, Nitin RAMOS, et al. Evaluation,treatment, and prevention of vitamin D deficiency; an Endocrine Society clinical practice guideline. JCEM. 2010; 96(7):1911-30. Estimated GFR () 16 mL/Min [facility] Comment on above: GFR estimated refere nce range: According to KDOQI guidelines, <60 ml/min/1.73m2 is sufficient to diagnose a patient with chronic kidney disease. Pharmacy Creatinine Clearance (Chem N/A [facility] Phosphate [Mass/volume] in S james or PlasmaOrdered By: Ada Uriostegui on 02-20-2022 Phosphate [Mass/Vol] 4.2 mg/dL 2.5-4.6 [facility] Platelet mean volume Auto (B ld) [Entitic vol]Ordered By: Ada Uriostegui on 02-20-2022 Platelet mean volume (Bld) [Entitic vol] 7.4 fL 6.6-10.1 [facility] Platelets Auto (Bld) [#/Vol] Ordered By: Ada Uriostegui on 02-20-2022 Platelets (Bld) [#/Vol] 497 10*3/uL 150-450 [facility] Protein Auto test strip (U) [Mass/Vol]Ordered By: Ada Uriostegui on 02-20-2022 Protein (U) [Mass/Vol] 300 mg/dL Negative Fi [facility] Protein [Mass/volume] in Uri neOrdered By: Ada Uriostegui on 02-20-2022 Protein (U) [Mass/Vol] 303 mg/dL 0-9 Fi [facility] RBC Auto (Bld) [#/Vol]Ordere d By: Ada Uriostegui on 02-20-2022 RBC (Bld) [#/Vol] 3.64 10*6/uL 3.90-5.60 [facility] Serum or plasma calcium shante urement (mass/volume)Ordered By: Ada Uriostegui on 02-20-2022 Calcium [Mass/Vol] 8.8 mg/dL 8.2-10.2 [facility] Serum or plasma chloride alber surement (moles/volume)Ordered By: Ada Uriostegui on 02-20-2022 Chloride [Moles/Vol] 106 mmol/L 95-114 [facility] Serum or plasma glucose shante urement (mass/volume)Ordered By: Ada Uriostegui on 02-20-2022 Glucose [Mass/Vol] 65 mg/dL 70-100 [facility] Comment on above: ADA recommended refe rence range Random Glucose Reference Range is dependent on time and content of last meal. Glucose of more than 200 mg/dL in a nonstressed, ambulatory subject supports the diagnosis of Diabetes Mellitus. Serum or plasma intact parat hyroid hormone measurement (mass/volume)Ordered By: Ada Uriostegui on 02-20-2022 Parathyrin.intact [Mass/Vol] 251.7 pg/mL 12 [facility] Serum or plasma potassium me asurement (moles/volume)Ordered By: Ada Uriostegui on 02-20-2022 Potassium [Moles/Vol] 4.7 mmol/L 3.5-5.1 [facility] Serum or plasma sodium measu rement (moles/volume)Ordered By: Ada Uriostegui on 02-20-2022 Sodium [Moles/Vol] 141 mmol/L 136-146 [facility] Serum or plasma total carbon dioxide measurement (moles/volume)Ordered By: Ada Uriostegui on 02-20-2022 CO2 [Moles/Vol] 24.3 mmol/L 22.0-30.0 [facility] Serum or plasma urea nitroge n measurement (mass/volume)Ordered By: Ada Uriostegui on 02-20-2022 Urea nitrogen [Mass/Vol] 51 mg/dL 9 [facility] Serum or plasma uric acid me asurement (mass/volume)Ordered By: Ada Uriostegui on 02-20-2022 Urate [Mass/Vol] 6.6 mg/dL 2.6-7.2 [facility] Specific gravity Auto test s trip (U) [Rel density]Ordered By: Ada Uriostegui on 02-20-2022 Specific gravity (U) [Rel density] 1.013 1.001-1.030 [facility] Squamous epithelial cells de tection in urine sediment by light microscopyOrdered By: Ada Uriostegui on 02-20-2022 Epithelial cells.squamous LM Ql (Urine sed) 0-1 [HPF] 0-2 [facility] Urine bacteria detection by automated methodOrdered By: Ada Uriostegui on 02-20-2022 Bacteria Auto Ql (U) None seen None Seen [facility] Urine clarity by refractomet ry automatedOrdered By: Ada Uriostegui on 02-20-2022 Clarity Refractometry automated (U) Clear Clear [facility] Urine glucose measurement by automated test strip (mass/volume)Ordered By: Ada Uriostegui on 02-20-2022 Glucose Auto test strip (U) [Mass/Vol] Normal mg/dL Normal [facility] Urine hemoglobin detection b y automated test stripOrdered By: Ada Uriostegui on 02-20-2022 Hemoglobin Auto test strip Ql (U) Trace Negative [facility] Urine leukocyte esterase det ection by automated test stripOrdered By: Ada Uriostegui on 02-20-2022 Leukocyte esterase Auto test strip Ql (U) Negative Negative [facility] Urine protein/creatinine rat ioOrdered By: Ada Uriostegui on 02-20-2022 Protein/Creatinine (U) [Ratio] 4134 mg/g{Cre} 0-200 [facility] Urobilinogen Auto test strip (U) [Mass/Vol]Ordered By: Ada Uriostegui on 02-20-2022 Urobilinogen (U) [Mass/Vol] Normal mg/dL Normal [facility] WBC Auto (Bld) [#/Vol]Ordere d By: Ada Uriostegui on 02-20-2022 WBC (Bld) [#/Vol] 9.6 10*3/uL 4.1-10.5 [facility] pH Auto test strip (U)Ordere d By: Ada Uriostegui on 02-20-2022 pH (U) 5.5 [pH] 5.0-9.0 [facility] C-Reactive Proteinon 022 CRP IV 3.4 mg/dl Normal <5.0 [facility] Comment on above: Performed By: #### C BCAD, CMP, ESR, CRP #### [facility] [address] [place] [id number] Complete Blood Count with Au to Diffon 10-23-2021 Basophils (Bld) [#/Vol] 0.08 10*3/uL Normal 0.00-0.20 [facility] Comment on above: Performed By: #### C BCAD, CMP, ESR, CRP #### [facility] [address] [id number] Basophils/100 WBC (Bld) 0.4 % Normal [facility] Comment on above: Performed By: #### C BCAD, CMP, ESR, CRP #### [facility] [address], [place] [id number] Eosinophils (Bld) [#/Vol] 0.34 10*3/uL Normal 0.02-0.50 [facility] Comment on above: Performed By: #### C BCAD, CMP, ESR, CRP #### [facility] [address], [place] [id number] Eosinophils/100 WBC (Bld) 1.8 % Normal [facility] Comment on above: Performed By: #### C BCAD, CMP, ESR, CRP #### [facility] [address], [place] [id number] Erythrocyte distribution width (RBC) [Ratio] 12.9 % Normal 11.0-15.0 [facility] Comment on above: Performed By: #### C BCAD, CMP, ESR, CRP #### [facility] [address], [place] [id number] Hematocrit (Bld) [Volume fraction] 38.4 % Low 38.5-50.0 [facility] Comment on above: Performed By: #### C BCAD, CMP, ESR, CRP #### [facility] [address], [place] [id number] Hemoglobin (Bld) [Mass/Vol] 12.2 g/dL Low 13.0-17.1 [facility] Comment on above: Performed By: #### C BCAD, CMP, ESR, CRP #### [facility] [address], [place] [id number] Lymphocytes (Bld) [#/Vol] 1.9 10*3/uL Normal 0.9-3.9 [facility] Comment on above: Performed By: #### C BCAD, CMP, ESR, CRP #### [facility] [address], [place] [id number] Lymphocytes/100 WBC (Bld) 10.1 % Normal [facility] Comment on above: Performed By: #### C BCAD, CMP, ESR, CRP #### [facility] [address], [place] [id number] MCH (RBC) [Entitic mass] 28.8 pg Normal 27.0-33.0 [facility] Comment on above: Performed By: #### C BCAD, CMP, ESR, CRP #### [facility] [address], [place] [id number] MCHC (RBC) [Mass/Vol] 31.8 g/dL Low 32.0-36.0 [facility] Comment on above: Performed By: #### C BCAD, CMP, ESR, CRP #### [facility] [address], [place] [id number] MCV (RBC) [Entitic vol] 91 fL Normal 80-100 [facility] Comment on above: Performed By: #### C BCAD, CMP, ESR, CRP #### [facility] [address], [place] [id number] Monocytes (Bld) [#/Vol] 1.2 10*3/uL High 0.2-0.9 [facility] Comment on above: Performed By: #### C BCAD, CMP, ESR, CRP #### [facility] [address], [place] [id number] Monocytes/100 WBC (Bld) 6.3 % Normal [facility] Comment on above: Performed By: #### C BCAD, CMP, ESR, CRP #### [facility] [address], [place] [id number] Neutrophils (Bld) [#/Vol] 15.0 10*3/uL High 1.5-7.8 [facility] Comment on above: Performed By: #### C BCAD, CMP, ESR, CRP #### [facility] [address], [place] [id number] Neutrophils/100 WBC (Bld) 80.6 % Normal [facility] Comment on above: Performed By: #### C BCAD, CMP, ESR, CRP #### [facility] [address], [place] [id number] Platelet mean volume (Bld) [Entitic vol] 8.80 fL Normal 7.50-12.50 [facility] Comment on above: Performed By: #### C BCAD, CMP, ESR, CRP #### [facility] [address], [place] [id number] Platelets (Bld) [#/Vol] 586 10*3/uL High 140-400 [facility] Comment on above: Performed By: #### C BCAD, CMP, ESR, CRP #### [facility] [address], [place] [id number] RBC (Bld) [#/Vol] 4.23 10*6/uL Normal 4.20-5.80 [facility] Comment on above: Performed By: #### C BCAD, CMP, ESR, CRP #### [facility] [address], [place] [id number] RDW-SD 42.6 fL Normal 37.0-50.0 [facility] Comment on above: Performed By: #### C BCAD, CMP, ESR, CRP #### [facility] [address], [place] [id number] WBC (Bld) [#/Vol] 18.7 10*3/uL High 3.8-11.0 [facility] Comment on above: Performed By: #### C BCAD, CMP, ESR, CRP #### [facility] [address], [place] [id number] Comprehensive Metabolic Pane [facility] 10-23-2021 Albumin [Mass/Vol] 4.5 g/dL Normal 3.6-5.1 [facility] Comment on above: Performed By: #### C BCAD, CMP, ESR, CRP #### [facility] [address], [place] [id number] Albumin/Globulin [Mass ratio] 1.3 {ratio} Normal 1.0-2.5 [facility] Comment on above: Performed By: #### C BCAD, CMP, ESR, CRP #### [facility] [address], [place] [id number] ALP [Catalytic activity/Vol] 87 U/L Normal 40-129 [facility] Comment on above: Performed By: #### C BCAD, CMP, ESR, CRP #### [facility] [address], [place] [id number] ALT [Catalytic activity/Vol] 23 U/L Normal 9-46 [facility] Comment on above: Result Comment: 08/06 Female reference range changed. Performed By: #### C BCAD, CMP, ESR, CRP #### [facility] [address], [place] [id number] Anion gap [Moles/Vol] 23 mmol/L High 12-20 [facility] Comment on above: Result Comment: Effe ctive 09/11/2019 reference range changed. Performed By: #### C BCAD, CMP, ESR, CRP #### [facility] [address], [place] [id number] AST [Catalytic activity/Vol] 20 U/L Normal 10-40 [facility] Comment on above: Performed By: #### C BCAD, CMP, ESR, CRP #### [facility] [address], [place] [id number] BUN/CREA 15 Ratio Normal 6-22 [facility] Comment on above: Performed By: #### C BCAD, CMP, ESR, CRP #### [facility] [address] [facility] [id number] Calcium [Mass/Vol] 9.6 mg/dL Normal 8.6-10.2 [facility] Comment on above: Performed By: #### C BCAD, CMP, ESR, CRP #### [facility] [address], [place] [id number] Chloride [Moles/Vol] 102 mmol/L Normal 98-107 [facility] Comment on above: Performed By: #### C BCAD, CMP, ESR, CRP #### [facility] [address] [place] [facility] [id number] CO2 [Moles/Vol] 18 mmol/L Low 20-31 [facility] Comment on above: Performed By: #### C BCAD, CMP, ESR, CRP #### [facility] [address] [facility] [facility] [id number] Creatinine [Mass/Vol] 4.5 mg/dL High 0.7-1.4 [facility] Comment on above: Performed By: #### C BCAD, CMP, ESR, CRP #### [facility] [address], [place] [id number] eGFRAA 17 mL/min/1.73m2 Low >60 [facility] Comment on above: Performed By: #### C BCAD, CMP, ESR, CRP #### [facility] [address], [place] [id number] eGFRNAA 14 mL/min/1.73m2 Low >60 [facility] Comment on above: Performed By: #### C BCAD, CMP, ESR, CRP #### [facility] [address], [place] [id number] Globulin (S) [Mass/Vol] 3.5 g/dL Normal 1.9-3.7 [facility] Comment on above: Performed By: #### C BCAD, CMP, ESR, CRP #### [facility] [address], [place] [id number] Glucose [Mass/Vol] 62 mg/dL Low 65-99 Юл[facility] [place] [facility] Comment on above: Result Comment: For FASTING Glucose --- ADA reference ranges: Normal 65-99 mg/dl Prediabetes 100-125 Diabetes >/= 126 Performed By: #### C BCAD, CMP, ESR, CRP #### [facility] [address], [place] [id number] Potassium [Moles/Vol] 4.7 mmol/L Normal 3.5-5.5 [facility] Comment on above: Performed By: #### C BCAD, CMP, ESR, CRP #### [facility] [address], [place] [id number] Protein [Mass/Vol] 8.0 g/dL Normal 6.1-8.1 Юлия ch[facility] [place] [facility] Comment on above: Performed By: #### C BCAD, CMP, ESR, CRP #### [facility] [address], [place] [id number] Sodium [Moles/Vol] 139 mmol/L Normal 135-146 Юлия ch[facility] [place] [employer] [facility] Comment on above: Performed By: #### C BCAD, CMP, ESR, CRP #### [facility] [address], [place] [id number] TBIL <0.3 Normal [facility] Comment on above: Performed By: #### C BCAD, CMP, ESR, CRP #### [facility] [address], [place] [id number] Urea nitrogen [Mass/Vol] 66 mg/dL High 7-25 [facility] Comment on above: Performed By: #### C BCAD, CMP, ESR, CRP #### [facility] [address], [place] [id number] RBC Sedimentation Rateon ESR (Bld) [Velocity] 118.00 mm/h High 0.00-20.00 [facility] Comment on above: Performed By: #### C BCAD, CMP, ESR, CRP #### [facility] [address], [place] [id number] CNCOon 04-02-2020 CNCO Letter Text Normal [facility] PROGRESSon 06-20-2019 PROGRESS HNO ID: [id number] Author: Dc (Rn) JACOB Mistry Service: ? Author Type: Registered Nurse Type: Progress Notes Filed: 06/20/2019 7:28 AM Note Text: On intake, patient admits to chewing tobacco. Will need to quit. New Referral Referring Physician Dr. Ada Uriostegui Organ Type kidney ESRD No. Cause: DM Dialysis Dependant? [place] of Dialysis Facility: n/a Diabetes Yes. 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 No. Facility: n/a Willing to accept blood transfusion? Yes Potential Living Donor? Yes Full transplant evaluation? Yes Nephrology Screen Required? No If yes to nephrology screen, reason: n/a Dc Mistry RN Pre-Kidney AND Pancreas Ion Exchange Operator [facility] Normal [facility] Vital Signs Date Time Vital Sign Value Performing Clinician Facility 04-05-2025 09:40-0400 Body height 188 cm Maciej JONES Work Phone: [facility] 04-05-2025 09:40-0400 Body mass index (BMI) [Ratio] 43.14 kg/m2 Maciej Roldan PA Work Phone: [facility] 04-05-2025 09:40-0400 Body weight 152.41 kg Maciej Loganjeffrey PA Work Phone: [facility] 04-05-2025 09:40-0400 Diastolic blood pressure 91 mm[Hg] Maciej Doreenenberg PA Work Phone: [facility] [employer] [facility] Comment on above: just took am meds 04-05-2025 09:40-0400 Heart rate 69 /min Maciej Loganjeffrey PA Work Phone: [facility] 04-05-2025 09:40-0400 Respiratory rate 18 /min Maciej Doreenenberg PA Work Phone: [facility] 04-05-2025 09:40-0400 SaO2% (BldA) [Mass fraction] 98 % Maciej Yuli PA Work Phone: [facility] 04-05-2025 09:40-0400 Systolic blood pressure 204 mm[Hg] Maciej Loganenberg PA Work Phone: [facility] [employer] [facility] Comment on above: just took am meds 03-26-2025 12:30-0400 Diastolic blood pressure 85 mm[Hg] Idania Petznick DO Work Phone: [facility] 03-26-2025 12:30-0400 Heart rate 75 /min Idania Petznick DO Work Phone: [facility] 03-26-2025 12:30-0400 Respiratory rate 20 /min Idania Petznick DO Work Phone: [facility] 03-26-2025 12:30-0400 SaO2% (BldA) [Mass fraction] 98 % Idania Petznick DO Work Phone: [facility] 03-26-2025 12:30-0400 Systolic blood pressure 197 mm[Hg] Idania Petznick DO Work Phone: [facility] 03-26-2025 08:31-0400 Body height 187.96 cm Idania Petznick DO Work Phone: [facility] 03-26-2025 08:31-0400 Body temperature 98 [degF] Idania Petznick DO Work Phone: 3(412)283-427577 [address] 03-26-2025 08:31-0400 Body weight 150 kg Idania Petznick DO Work Phone: 5(568)[phone] [address] 03-11-2025 11:25-0400 Diastolic blood pressure 99 mm[Hg] Idania Petznick DO Work Phone: 1(550)[phone] [address] 03-11-2025 11:25-0400 Heart rate 76 /min Idania Petznick DO Work Phone: 6(842)901-949777 [address] 03-11-2025 11:25-0400 Respiratory rate 20 /min Idania Petznick DO Work Phone: 8(912)[phone] [place] [address] 03-11-2025 11:25-0400 SaO2% (BldA) [Mass fraction] 100 % Idania Petznick DO Work Phone: 4(007)046-290764 [place] [address] 03-11-2025 11:25-0400 Systolic blood pressure 176 mm[Hg] Idania Petznick DO Work Phone: 7(434)817-479077 [address] 03-11-2025 10:29-0400 Body height 187.96 cm Idania Petznick DO Work Phone: 1(962)[phone] [address] 03-11-2025 10:29-0400 Body temperature 97.7 [degF] Idania Petznick DO Work Phone: 3(410)[phone] [address] 03-11-2025 10:29-0400 Body weight 145.1 kg Idania Petznick DO Work Phone: 8(613)818-375877 [address] 03-07-2025 15:50-0400 Diastolic blood pressure 86 mm[Hg] Idania Petznick DO Work Phone: 5(391)[phone] [place] [address] 03-07-2025 15:50-0400 Heart rate 67 /min Idania Petznick DO Work Phone: [facility] 03-07-2025 15:50-0400 SaO2% (BldA) [Mass fraction] 98 % Idania Petznick DO Work Phone: [facility] 03-07-2025 15:50-0400 Systolic blood pressure 158 mm[Hg] Idania Petznick DO Work Phone: [facility] 02-13-2025 08:38-0400 Body height 187.96 cm Idania Petznick DO Work Phone: [facility] 02-13-2025 08:38-0400 Body mass index (BMI) [Ratio] 41.4 kg/m2 Idania Petznick DO Work Phone: [facility] 02-13-2025 08:38-0400 Body weight 146.51 kg Idania Petznick DO Work Phone: [facility] 02-13-2025 08:38-0400 Diastolic blood pressure 80 mm[Hg] Idania Petznick DO Work Phone: [facility] 02-13-2025 08:38-0400 Heart rate 55 /min Idania Petznick DO Work Phone: [facility] 02-13-2025 08:38-0400 SaO2% (BldA) [Mass fraction] 97 % Idania Petznick DO Work Phone: [facility] 02-13-2025 08:38-0400 Systolic blood pressure 148 mm[Hg] Idania Petznick DO Work Phone: [facility] 02-02-2025 11:42-0400 Body height 188 cm Sherley Templeton MD Work Phone: [facility] [employer] 02-02-2025 11:42-0400 Body mass index (BMI) [Ratio] 38.52 kg/m2 Sherley Templeton MD Work Phone: [facility] [employer] 02-02-2025 11:42-0400 Body weight 136.08 kg Sherley Templeton MD Work Phone: [employer] 02-02-2025 09:06-0400 Body temperature 98.01 [degF] Sherley Templeton MD Work Phone: [facility] [email or web address] 02-02-2025 09:06-0400 Diastolic blood pressure 75 mm[Hg] Sherley Templeton MD Work Phone: [facility] [employer] 02-02-2025 09:06-0400 Heart rate 79 /min Sherley Templeton MD Work Phone: [facility] [employer] 02-02-2025 09:06-0400 Respiratory rate 18 /min Sherley Templeton MD Work Phone: [facility] [employer] 02-02-2025 09:06-0400 SaO2% (BldA) [Mass fraction] 96 % Sherley Templeton MD Work Phone: [facility] [employer] 02-02-2025 09:06-0400 Systolic blood pressure 183 mm[Hg] Sherley Templeton MD Work Phone: [facility] [employer] 01-02-2025 00:30-0400 Diastolic blood pressure 74 mm[Hg] Idania Petznick DO Work Phone: [facility] 01-02-2025 00:30-0400 Heart rate 74 /min Idania Petznick DO Work Phone: [facility] 01-02-2025 00:30-0400 Respiratory rate 20 /min Idania Petznick DO Work Phone: [facility] 01-02-2025 00:30-0400 SaO2% (BldA) [Mass fraction] 97 % Idania Petznick DO Work Phone: [facility] 01-02-2025 00:30-0400 Systolic blood pressure 157 mm[Hg] Idania Petznick DO Work Phone: [facility] 01-01-2025 21:07-0400 Body height 187.96 cm Idania Petznick DO Work Phone: [facility] 01-01-2025 21:07-0400 Body temperature 98.7 [degF] Idania Petznick DO Work Phone: [facility] 01-01-2025 21:07-0400 Body weight 144.35 kg Idania Petznick DO Work Phone: [facility] 12-29-2024 16:23-0400 Body height 187.96 cm Idania Petznick DO Work Phone: [facility] 12-29-2024 16:23-0400 Body temperature 98 [degF] Idania Petznick DO Work Phone: 4(687)044-788864 [place] [address] 12-29-2024 16:23-0400 Body weight 150 kg Idania Petznick DO Work Phone: 9(182)[phone] [address] 12-29-2024 16:23-0400 Diastolic blood pressure 93 mm[Hg] Idania Petznick DO Work Phone: 9(052)[phone] [place] [address] 12-29-2024 16:23-0400 Heart rate 73 /min Idania Petznick DO Work Phone: [facility] 12-29-2024 16:23-0400 Respiratory rate 20 /min Idania Petznick DO Work Phone: [facility] 12-29-2024 16:23-0400 SaO2% (BldA) [Mass fraction] 97 % Idania Petznick DO Work Phone: [facility] 12-29-2024 16:23-0400 Systolic blood pressure 202 mm[Hg] Idania Petznick DO Work Phone: 3(178)639-689864 [place] [address] 12-05-2024 13:42-0400 Body height 188 cm Idania Petznick DO Work Phone: [facility] 12-05-2024 13:42-0400 Body mass index (BMI) [Ratio] 40.7 kg/m2 Idania Petznick DO Work Phone: [facility] 12-05-2024 13:42-0400 Body temperature 98.29 [degF] Idania Petznick DO Work Phone: [facility] 12-05-2024 13:42-0400 Body weight 143.79 kg Idania Petznick DO Work Phone: [facility] 12-05-2024 13:42-0400 Diastolic blood pressure 80 mm[Hg] Idania Petznick DO Work Phone: [facility] 12-05-2024 13:42-0400 Heart rate 82 /min Idania Petznick DO Work Phone: [facility] 12-05-2024 13:42-0400 SaO2% (BldA) [Mass fraction] 100 % Idania Petznick DO Work Phone: [facility] 12-05-2024 13:42-0400 Systolic blood pressure 134 mm[Hg] Idania Petznick DO Work Phone: [facility] 11-27-2024 22:43-0400 Body height 187.96 cm Idania Petznick DO Work Phone: [facility] 11-27-2024 22:43-0400 Body temperature 98.6 [degF] Idania Petznick DO Work Phone: [facility] 11-27-2024 22:43-0400 Body weight 143.7 kg Idania Petznick DO Work Phone: [facility] 11-27-2024 22:43-0400 Diastolic blood pressure 80 mm[Hg] Idania Petznick DO Work Phone: [facility] 11-27-2024 22:43-0400 Heart rate 88 /min Idania Petznick DO Work Phone: [facility] 11-27-2024 22:43-0400 Respiratory rate 16 /min Idania Petznick DO Work Phone: [facility] 11-27-2024 22:43-0400 SaO2% (BldA) [Mass fraction] 96 % Idania Petznick DO Work Phone: [facility] 11-27-2024 22:43-0400 Systolic blood pressure 156 mm[Hg] Idania Petznick DO Work Phone: [facility] 10-29-2024 17:26-0500 Diastolic blood pressure 77 mm[Hg] Idania Petznick DO Work Phone: [facility] 10-29-2024 17:26-0500 Systolic blood pressure 175 mm[Hg] Idania Petznick DO Work Phone: [facility] 10-29-2024 16:38-0500 Body height 187.96 cm Idania Petznick DO Work Phone: 9(162)370-482177 [address] 10-29-2024 16:38-0500 Body temperature 98.2 [degF] Idania Petznick DO Work Phone: [facility] 10-29-2024 16:38-0500 Body weight 141.6 kg Idania Petznick DO Work Phone: 0(311)313-945964 [place] [address] 10-29-2024 16:38-0500 Heart rate 80 /min Idania Petznick DO Work Phone: [facility] 10-29-2024 16:38-0500 Respiratory rate 18 /min Idania Petznick DO Work Phone: [facility] 10-29-2024 16:38-0500 SaO2% (BldA) [Mass fraction] 98 % Idania Petznick DO Work Phone: [facility] 10-02-2024 13:39-0500 Body height 188 cm Idania Petznick DO Work Phone: [facility] 10-02-2024 13:39-0500 Body mass index (BMI) [Ratio] 39.42 kg/m2 Idania Petznick DO Work Phone: [facility] 10-02-2024 13:39-0500 Body temperature 98.4 [degF] Idania Petznick DO Work Phone: [facility] 10-02-2024 13:39-0500 Body weight 139.25 kg Idania Petznick DO Work Phone: [facility] 10-02-2024 13:39-0500 Diastolic blood pressure 64 mm[Hg] Idania Petznick DO Work Phone: [facility] 10-02-2024 13:39-0500 Heart rate 85 /min Idania Petznick DO Work Phone: [facility] 10-02-2024 13:39-0500 SaO2% (BldA) [Mass fraction] 96 % Idania Petznick DO Work Phone: [facility] 10-02-2024 13:39-0500 Systolic blood pressure 110 mm[Hg] Idania Petznick DO Work Phone: [facility] 09-19-2024 10:09-0500 Body height 188 cm Idania Petznick DO Work Phone: [facility] 09-19-2024 10:09-0500 Body mass index (BMI) [Ratio] 41.09 kg/m2 Idania Petznick DO Work Phone: [facility] 09-19-2024 10:09-0500 Body temperature 98.29 [degF] Idania Petznick DO Work Phone: [facility] 09-19-2024 10:09-0500 Body weight 145.15 kg Idania Petznick DO Work Phone: [facility] 09-19-2024 10:09-0500 Diastolic blood pressure 68 mm[Hg] Idania Petznick DO Work Phone: [facility] 09-19-2024 10:09-0500 Heart rate 78 /min Idania Petznick DO Work Phone: [facility] 09-19-2024 10:09-0500 SaO2% (BldA) [Mass fraction] 95 % Idania Petznick DO Work Phone: [facility] 09-19-2024 10:09-0500 Systolic blood pressure 122 mm[Hg] Idania Petznick DO Work Phone: [facility] 09-04-2024 13:36-0500 Body height 188 cm Idania Petznick DO Work Phone: [facility] 09-04-2024 13:36-0500 Body mass index (BMI) [Ratio] 40.06 kg/m2 Idania Petznick DO Work Phone: [facility] 09-04-2024 13:36-0500 Body temperature 98.4 [degF] Idania Petznick DO Work Phone: [facility] 09-04-2024 13:36-0500 Body weight 141.52 kg Idania Petznick DO Work Phone: [facility] 09-04-2024 13:36-0500 Diastolic blood pressure 62 mm[Hg] Idania Petznick DO Work Phone: [facility] 09-04-2024 13:36-0500 Heart rate 81 /min Idania Petznick DO Work Phone: [facility] 09-04-2024 13:36-0500 SaO2% (BldA) [Mass fraction] 95 % Idania Petznick DO Work Phone: [facility] 09-04-2024 13:36-0500 Systolic blood pressure 124 mm[Hg] Idania Petznick DO Work Phone: [facility] 08-29-2024 01:08-0500 Body temperature 98 [degF] Idania Petznick DO Work Phone: [facility] 08-29-2024 01:08-0500 Diastolic blood pressure 68 mm[Hg] Idania Petznick DO Work Phone: [facility] 08-29-2024 01:08-0500 Heart rate 90 /min Idania Petznick DO Work Phone: [facility] 08-29-2024 01:08-0500 Respiratory rate 18 /min Idania Petznick DO Work Phone: [facility] 08-29-2024 01:08-0500 SaO2% (BldA) [Mass fraction] 95 % Idania Petznick DO Work Phone: [facility] 08-29-2024 01:08-0500 Systolic blood pressure 114 mm[Hg] Idania Petznick DO Work Phone: [facility] 08-28-2024 22:37-0500 Body height 187.96 cm Idania Petznick DO Work Phone: [facility] 08-28-2024 22:37-0500 Body weight 144.6 kg Idania Petznick DO Work Phone: [facility] 08-07-2024 13:53-0500 Body height 188 cm Idania Petznick DO Work Phone: [facility] 08-07-2024 13:53-0500 Body mass index (BMI) [Ratio] 40.19 kg/m2 Idania Petznick DO Work Phone: [facility] 08-07-2024 13:53-0500 Body temperature 96.91 [degF] Idania Petznick DO Work Phone: [facility] 08-07-2024 13:53-0500 Body weight 141.98 kg Idania Petznick DO Work Phone: [facility] 08-07-2024 13:53-0500 Diastolic blood pressure 78 mm[Hg] Idania Petznick DO Work Phone: [facility] 08-07-2024 13:53-0500 Heart rate 83 /min Idania Petznick DO Work Phone: [facility] 08-07-2024 13:53-0500 SaO2% (BldA) [Mass fraction] 91 % Idania Petznick DO Work Phone: [facility] 08-07-2024 13:53-0500 Systolic blood pressure 134 mm[Hg] Idania Petznick DO Work Phone: [facility] 05-16-2024 09:17-0400 Body height 188 cm Idania Petznick DO Work Phone: 8(552)869-071306 [address] 05-16-2024 09:17-0400 Body mass index (BMI) [Ratio] 40.37 kg/m2 Idania Petznick DO Work Phone: [facility] 05-16-2024 09:17-0400 Body temperature 96.91 [degF] Idania Petznick DO Work Phone: [facility] 05-16-2024 09:17-0400 Body weight 142.61 kg Idania Petznick DO Work Phone: [facility] 05-16-2024 09:17-0400 Diastolic blood pressure 62 mm[Hg] Idania Petznick DO Work Phone: 8(433)791-925531 [place] [address] 05-16-2024 09:17-0400 Heart rate 81 /min Idania Petznick DO Work Phone: [facility] 05-16-2024 09:17-0400 SaO2% (BldA) [Mass fraction] 94 % Idania Petznick DO Work Phone: 9(410)754-593831 [place] [address] 05-16-2024 09:17-0400 Systolic blood pressure 154 mm[Hg] Idania Petznick DO Work Phone: [facility] 05-15-2024 14:51-0400 Body height 187.96 cm DO Idania Petznick Work Phone: 4(973)744-563864 [place] [address] 05-15-2024 14:51-0400 Body temperature 98.5 [degF] DO Idania Petznick Work Phone: 6(789)095-353164 [place] [address] 05-15-2024 14:51-0400 Body weight 142.25 kg DO Idania Petznick Work Phone: 1(417)797-569877 [address] 05-15-2024 14:51-0400 Diastolic blood pressure 83 mm[Hg] DO Idania Petznick Work Phone: 4(318)356-547853 [place] [address] 05-15-2024 14:51-0400 Heart rate 64 /min DO Idania Petznick Work Phone: 6(988)883-757564 [place] [address] 05-15-2024 14:51-0400 Respiratory rate 21 /min DO Idania Petznick Work Phone: [facility] 05-15-2024 14:51-0400 SaO2% (BldA) [Mass fraction] 97 % DO Idania Petznick Work Phone: 0(704)513-645164 [place] [address] 05-15-2024 14:51-0400 Systolic blood pressure 183 mm[Hg] DO Idania Petznick Work Phone: 4(566)174-309777 [address] 02-04-2024 12:00-0400 Diastolic blood pressure 73 mm[Hg] DO Idania Petznick Work Phone: 5(620)402-996177 [address] 02-04-2024 12:00-0400 Heart rate 65 /min DO Idania Petznick Work Phone: 7(858)905-321377 [address] 02-04-2024 12:00-0400 Respiratory rate 16 /min DO Idania Petznick Work Phone: 3(838)391-155877 [address] 02-04-2024 12:00-0400 SaO2% (BldA) [Mass fraction] 96 % DO Idania Petznick Work Phone: 8(754)087-987464 [place] [address] 02-04-2024 12:00-0400 Systolic blood pressure 133 mm[Hg] DO Idania Petznick Work Phone: 8(958)492-555064 [place] [address] 02-04-2024 10:38-0400 Body height 187.96 cm DO Idania Petznick Work Phone: 7(884)250-222564 [place] [address] 02-04-2024 10:38-0400 Body temperature 98.5 [degF] DO Idania Petznick Work Phone: 9(206)385-043264 [place] [address] 02-04-2024 10:38-0400 Body weight 142.88 kg DO Idania Petznick Work Phone: 7(123)924-216264 [place] [address] 01-03-2024 09:34-0400 Body height 187.96 cm DO Idania Petznick Work Phone: 5(742)500-996064 [place] [address] 01-03-2024 09:34-0400 Body mass index (BMI) [Ratio] 40.4 kg/m2 DO Idania Petznick Work Phone: [facility] 01-03-2024 09:34-0400 Body temperature 97.8 [degF] DO Idania Petznick Work Phone: [facility] 01-03-2024 09:34-0400 Body weight 142.88 kg DO Idania Petznick Work Phone: [facility] 01-03-2024 09:34-0400 Diastolic blood pressure 72 mm[Hg] DO Idania Petznick Work Phone: [facility] 01-03-2024 09:34-0400 Heart rate 76 /min DO Idania Petznick Work Phone: [facility] 01-03-2024 09:34-0400 Respiratory rate 16 /min DO Idania Petznick Work Phone: 8(706)516-014664 [place] [address] 01-03-2024 09:34-0400 SaO2% (BldA) [Mass fraction] 98 % DO Idania Petznick Work Phone: [facility] 01-03-2024 09:34-0400 Systolic blood pressure 124 mm[Hg] DO Idania Petznick Work Phone: [facility] 12-24-2023 13:15-0400 Diastolic blood pressure 73 mm[Hg] DO Idania Petznick Work Phone: [facility] 12-24-2023 13:15-0400 Heart rate 76 /min DO Idania Petznick Work Phone: [facility] 12-24-2023 13:15-0400 Respiratory rate 16 /min DO Idania Petznick Work Phone: [facility] 12-24-2023 13:15-0400 SaO2% (BldA) [Mass fraction] 97 % DO Idania Petznick Work Phone: [facility] 12-24-2023 13:15-0400 Systolic blood pressure 135 mm[Hg] DO Idania Petznick Work Phone: 2(558)349-579764 [place] [address] 12-24-2023 11:05-0400 Body height 187.96 cm DO Idania Petznick Work Phone: 9(044)690-641353 [place] [address] 12-24-2023 11:05-0400 Body temperature 97.5 [degF] DO Idania Petznick Work Phone: 7(743)590-019053 [place] [address] 12-24-2023 11:05-0400 Body weight 142.88 kg DO Idania Petznick Work Phone: 2(753)573-358953 [place] [address] 12-06-2023 12:01-0400 Body height 187.96 cm DO Idania Petznick Work Phone: 6(533)739-319353 [place] [address] 12-06-2023 12:01-0400 Body mass index (BMI) [Ratio] 42 kg/m2 DO Idania Petznick Work Phone: 4(964)284-661753 [place] [address] 12-06-2023 12:01-0400 Body temperature 98 [degF] DO Idania Petznick Work Phone: 7(601)633-338777 [address] 12-06-2023 12:01-0400 Body weight 148.77 kg DO Idania Petznick Work Phone: 5(770)990-057853 [place] [address] 12-06-2023 12:01-0400 Diastolic blood pressure 78 mm[Hg] DO Idania Petznick Work Phone: 4(095)425-292053 [place] [address] 12-06-2023 12:01-0400 Heart rate 82 /min DO Idaina Petznick Work Phone: 6(777)620-026353 [place] [address] 12-06-2023 12:01-0400 SaO2% (BldA) [Mass fraction] 97 % DO Idania Petznick Work Phone: 5(503)285-429753 [place] [address] 12-06-2023 12:01-0400 Systolic blood pressure 132 mm[Hg] DO Idania Petznick Work Phone: 0(287)361-925077 [address] 11-25-2023 14:43-0400 Heart rate 79 /min DO Idania Petznick Work Phone: 2(521)924-526677 [address] 11-25-2023 14:36-0400 Body height 187.96 cm DO Idania Petznick Work Phone: [facility] 11-25-2023 14:36-0400 Body temperature 97.8 [degF] DO Idania Petznick Work Phone: [facility] 11-25-2023 14:36-0400 Body weight 148.7 kg DO Idania Petznick Work Phone: [facility] 11-25-2023 14:36-0400 Diastolic blood pressure 70 mm[Hg] DO Idania Petznick Work Phone: 5(338)723-150977 [address] 11-25-2023 14:36-0400 Respiratory rate 18 /min DO Idania Petznick Work Phone: [facility] 11-25-2023 14:36-0400 SaO2% (BldA) [Mass fraction] 93 % DO Idania Petznick Work Phone: [facility] 11-25-2023 14:36-0400 Systolic blood pressure 169 mm[Hg] DO Idania Petznick Work Phone: 9(601)671-385964 [place] [address] 11-23-2023 14:47-0400 Body temperature 98 [degF] DO Idnaia Petznick Work Phone: [facility] 11-23-2023 14:47-0400 Diastolic blood pressure 79 mm[Hg] DO Idania Petznick Work Phone: 8(493)688-256464 [place] [address] 11-23-2023 14:47-0400 Heart rate 77 /min DO Idania Petznick Work Phone: [facility] 11-23-2023 14:47-0400 Respiratory rate 18 /min DO Idania Petznick Work Phone: [facility] 11-23-2023 14:47-0400 SaO2% (BldA) [Mass fraction] 98 % DO Idania Petznick Work Phone: [facility] 11-23-2023 14:47-0400 Systolic blood pressure 172 mm[Hg] DO Idania Petznick Work Phone: 3(429)294-088164 [place] [address] 11-23-2023 05:54-0400 Body weight 146.2 kg DO Idania Petznick Work Phone: 8(949)733-526177 [address] 11-21-2023 11:53-0400 Body height 187.96 cm DO Idania Petznick Work Phone: 1(298)757-699853 [place] [address] 11-20-2023 21:43-0400 Body temperature 97.7 [degF] DO Idania Petznick Work Phone: 5(756)205-542677 [address] 11-20-2023 21:30-0400 Diastolic blood pressure 76 mm[Hg] DO Idania Petznick Work Phone: 5(266)100-630253 [place] [address] 11-20-2023 21:30-0400 Heart rate 90 /min DO Idania Petznick Work Phone: 0(443)565-934053 [place] [address] 11-20-2023 21:30-0400 Respiratory rate 18 /min DO Idania Petznick Work Phone: 4(393)563-931077 [address] 11-20-2023 21:30-0400 SaO2% (BldA) [Mass fraction] 95 % DO Idania Petznick Work Phone: 5(435)492-417664 [place] [address] 11-20-2023 21:30-0400 Systolic blood pressure 121 mm[Hg] DO Idania Petznick Work Phone: 2(717)804-978264 [place] [address] 11-20-2023 18:41-0400 Body height 187.96 cm DO Idania Petznick Work Phone: 7(125)240-571564 [place] [address] 11-20-2023 18:41-0400 Body weight 147.25 kg DO Idania Petznick Work Phone: 3(999)140-132453 [place] [address] 11-08-2023 09:45-0500 Body height 187.96 cm DO Idania Petznick Work Phone: 7(479)990-308577 [address] 11-08-2023 09:45-0500 Body mass index (BMI) [Ratio] 41.1 kg/m2 DO Idania Petznick Work Phone: [facility] 11-08-2023 09:45-0500 Body temperature 97.1 [degF] DO Idania Petznick Work Phone: [facility] 11-08-2023 09:45-0500 Body weight 145.14 kg DO Idania Petznick Work Phone: [facility] 11-08-2023 09:45-0500 Diastolic blood pressure 70 mm[Hg] DO Idania Petznick Work Phone: [facility] 11-08-2023 09:45-0500 Heart rate 78 /min DO Idania Petznick Work Phone: [facility] 11-08-2023 09:45-0500 SaO2% (BldA) [Mass fraction] 92 % DO Idania Petznick Work Phone: [facility] 11-08-2023 09:45-0500 Systolic blood pressure 160 mm[Hg] DO Idania Petznick Work Phone: [facility] 10-27-2023 14:48-0500 Diastolic blood pressure 67 mm[Hg] DO Idania Petznick Work Phone: [facility] 10-27-2023 14:48-0500 Heart rate 83 /min DO Idania Petznick Work Phone: [facility] 10-27-2023 14:48-0500 Respiratory rate 16 /min DO Idania Petznick Work Phone: [facility] 10-27-2023 14:48-0500 SaO2% (BldA) [Mass fraction] 99 % DO Idania Petznick Work Phone: [facility] 10-27-2023 14:48-0500 Systolic blood pressure 142 mm[Hg] DO Idania Petznick Work Phone: [facility] 10-27-2023 13:12-0500 Body height 187.96 cm DO Idania Petznick Work Phone: 7(831)555-344477 [address] 10-27-2023 13:12-0500 Body temperature 98 [degF] DO Idania Petznick Work Phone: 4(858)254-024953 [place] [address] 10-27-2023 13:12-0500 Body weight 154.22 kg DO Idania Petznick Work Phone: 0(881)744-121153 [place] [address] 10-13-2023 11:02-0500 Body height 188 cm Flakito High DO Work Phone: [facility] 10-13-2023 11:02-0500 Body mass index (BMI) [Ratio] 43.65 kg/m2 Flakito High DO Work Phone: [facility] 10-13-2023 11:02-0500 Body weight 154.22 kg Flakito High DO Work Phone: [facility] 10-06-2023 14:18-0500 Diastolic blood pressure 67 mm[Hg] DO Idania Petznick Work Phone: 4(719)059-800753 [place] [address] 10-06-2023 14:18-0500 Heart rate 71 /min DO Idania Petznick Work Phone: 3(945)322-208064 [place] [address] 10-06-2023 14:18-0500 Respiratory rate 16 /min DO Idania Petznick Work Phone: 0(373)815-296664 [place] [address] 10-06-2023 14:18-0500 SaO2% (BldA) [Mass fraction] 96 % DO Idania Petznick Work Phone: 1(616)219-044564 [place] [address] 10-06-2023 14:18-0500 Systolic blood pressure 141 mm[Hg] DO Idania Petznick Work Phone: 9(543)429-614377 [address] 10-06-2023 13:05-0500 Inhaled oxygen flow rate 6 L/min DO Idania Petznick Work Phone: 6(156)623-348353 [place] [address] 10-06-2023 12:55-0500 Body temperature 97.2 [degF] DO Idania Petznick Work Phone: 6(195)875-539464 [place] [address] 10-06-2023 09:51-0500 Body height 187.96 cm DO Idania Petznick Work Phone: [facility] 10-06-2023 09:51-0500 Body mass index (BMI) [Ratio] 44.3 kg/m2 DO Idania Petznick Work Phone: [facility] 10-06-2023 09:51-0500 Body weight 156.48 kg DO Idania Petznick Work Phone: [facility] 10-04-2023 10:45-0500 Body height 187.96 cm Ramirez Jacobrer Other [facility] 10-04-2023 10:45-0500 Body mass index (BMI) [Ratio] 44.29 kg/m2 Ramirez Buehrer Other [employer] Other 10-04-2023 10:45-0500 Body temperature 98 [degF] Ramirez Jean Other [employer] Other 10-04-2023 10:45-0500 Body weight 156.49 kg Ramirez Buehrer Other [employer] Other 10-04-2023 10:45-0500 Body weight 156.48 kg DO Idania Petznick Work Phone: [facility] 10-04-2023 10:45-0500 Diastolic blood pressure 72 mm[Hg] Ramirez Jacobreowen Other [facility] 10-04-2023 10:45-0500 SaO2% (BldA) [Mass fraction] 93 % Ramirez Jacobrer Other [employer] Other 10-04-2023 10:45-0500 Systolic blood pressure 150 mm[Hg] Ramirez Buehrer Other [facility] 09-26-2023 00:38-0500 Diastolic blood pressure 69 mm[Hg] DO Idania Petznick Work Phone: [facility] 09-26-2023 00:38-0500 Heart rate 82 /min DO Idania Petznick Work Phone: [facility] 09-26-2023 00:38-0500 Respiratory rate 20 /min DO Idania Petznick Work Phone: [facility] 09-26-2023 00:38-0500 SaO2% (BldA) [Mass fraction] 96 % DO Idania Petznick Work Phone: [facility] 09-26-2023 00:38-0500 Systolic blood pressure 138 mm[Hg] DO Idania Petznick Work Phone: [facility] 09-25-2023 19:04-0500 Body height 184.15 cm DO Idania Petznick Work Phone: [facility] 09-25-2023 19:04-0500 Body temperature 97.9 [degF] DO Idania Petznick Work Phone: [facility] 09-25-2023 19:04-0500 Body weight 158 kg DO Idania Petznick Work Phone: [facility] 09-16-2023 16:09-0500 Diastolic blood pressure 62 mm[Hg] DO Idania Petznick Work Phone: [facility] 09-16-2023 16:09-0500 Heart rate 68 /min DO Idania Petznick Work Phone: [facility] 09-16-2023 16:09-0500 Respiratory rate 16 /min DO Idania Petznick Work Phone: [facility] 09-16-2023 16:09-0500 SaO2% (BldA) [Mass fraction] 94 % DO Idania Petznick Work Phone: [facility] 09-16-2023 16:09-0500 Systolic blood pressure 119 mm[Hg] DO Idania Petznick Work Phone: [facility] 09-16-2023 13:54-0500 Body temperature 97.9 [degF] DO Idania Petznick Work Phone: [facility] 09-16-2023 13:24-0500 Inhaled oxygen flow rate 10 L/min DO Idania Petznick Work Phone: [facility] 09-16-2023 11:32-0500 Body mass index (BMI) [Ratio] 45.9 kg/m2 DO Idania Petznick Work Phone: [facility] 09-16-2023 11:26-0500 Body height 185.42 cm DO Idania Petznick Work Phone: [facility] 09-16-2023 11:26-0500 Body weight 157.85 kg DO Idania Petznick Work Phone: [facility] 06-16-2023 11:00-0400 Body height 187.96 cm Tondra Mapus Other [employer] Other 06-16-2023 11:00-0400 Body mass index (BMI) [Ratio] 43.93 kg/m2 Tondra Mapus Other [employer] Other 06-16-2023 11:00-0400 Body weight 155.22 kg Tondra Mapus Other [employer] Other 06-16-2023 11:00-0400 Diastolic blood pressure 82 mm[Hg] Tondra Mapus Other [employer] Other 06-16-2023 11:00-0400 Respiratory rate 18 /min Tondra Mapus Other [employer] Other 06-16-2023 11:00-0400 SaO2% (BldA) [Mass fraction] 98 % Michelle Kennedy Other [facility] Other 06-16-2023 11:00-0400 Systolic blood pressure 160 mm[Hg] Michelle Kennedy Other [facility] Other 11-07-2022 16:00-0500 Body temperature 97.8 [degF] DO Idania Petznick Work Phone: [facility] 11-07-2022 16:00-0500 Diastolic blood pressure 75 mm[Hg] DO Idania Petznick Work Phone: [facility] 11-07-2022 16:00-0500 Heart rate 86 /min DO Idania Petznick Work Phone: [facility] 11-07-2022 16:00-0500 Respiratory rate 16 /min DO Idania Petznick Work Phone: [facility] 11-07-2022 16:00-0500 SaO2% (BldA) [Mass fraction] 96 % DO Idania Petznick Work Phone: [facility] 11-07-2022 16:00-0500 Systolic blood pressure 162 mm[Hg] DO Idania Petznick Work Phone: [facility] 11-07-2022 06:00-0500 Body weight 144.9 kg DO Idania Petznick Work Phone: [facility] 11-06-2022 14:55-0500 Inhaled oxygen flow rate 3 L/min DO Idania Petznick Work Phone: [facility] 11-06-2022 13:24-0500 Body height 187.96 cm DO Idania Petznick Work Phone: [facility] 11-06-2022 13:24-0500 Body mass index (BMI) [Ratio] 41 kg/m2 DO Idania Petznick Work Phone: 2(260)673-804277 [address] 11-04-2022 20:00-0500 Diastolic blood pressure 94 mm[Hg] DO Idania Petznick Work Phone: 4(216)657-718577 [address] 11-04-2022 20:00-0500 Heart rate 81 /min DO Idania Petznick Work Phone: 6(018)327-559377 [address] 11-04-2022 20:00-0500 Respiratory rate 20 /min DO Idania Petznick Work Phone: 5(037)196-647977 [address] 11-04-2022 20:00-0500 SaO2% (BldA) [Mass fraction] 97 % DO Idania Petznick Work Phone: 1(543)731-116577 [address] 11-04-2022 20:00-0500 Systolic blood pressure 186 mm[Hg] DO Idania Petznick Work Phone: 5(458)427-957377 [address] 11-04-2022 13:57-0500 Body height 187.96 cm DO Idania Petznick Work Phone: 5(260)064-535277 [address] 11-04-2022 13:57-0500 Body temperature 99.1 [degF] DO Idania Petznick Work Phone: 5(006)653-849877 [address] 11-04-2022 13:57-0500 Body weight 145 kg DO Idania Petznick Work Phone: 7(230)[phone] [address] 11-01-2022 23:00-0500 Diastolic blood pressure 70 mm[Hg] DO Idania Petznick Work Phone: 9(101)430-247077 [address] 11-01-2022 23:00-0500 Heart rate 80 /min DO Idania Petznick Work Phone: 9(003)[phone] [place] [address] 11-01-2022 23:00-0500 Respiratory rate 20 /min DO Idania Petznick Work Phone: 0(811)[phone] [address] 11-01-2022 23:00-0500 SaO2% (BldA) [Mass fraction] 98 % DO Idania Petznick Work Phone: 1(910)168-982264 [place] [address] 11-01-2022 23:00-0500 Systolic blood pressure 162 mm[Hg] DO Idania Petznick Work Phone: [facility] 11-01-2022 21:02-0500 Body height 187.96 cm DO Idania Petznick Work Phone: [facility] 11-01-2022 21:02-0500 Body temperature 98 [degF] DO Idania Petznick Work Phone: [facility] 11-01-2022 21:02-0500 Body weight 149.7 kg DO Idania Petznick Work Phone: 3(220)784-153964 [place] [address] 10-10-2022 05:23-0500 Diastolic blood pressure 81 mm[Hg] DO Idania Petznick Work Phone: [facility] 10-10-2022 05:23-0500 Heart rate 92 /min DO Idania Petznick Work Phone: [facility] 10-10-2022 05:23-0500 Respiratory rate 20 /min DO Idania Petznick Work Phone: [facility] 10-10-2022 05:23-0500 SaO2% (BldA) [Mass fraction] 98 % DO Idania Petznick Work Phone: [facility] 10-10-2022 05:23-0500 Systolic blood pressure 165 mm[Hg] DO Idania Petznick Work Phone: [facility] 10-10-2022 04:13-0500 Body height 187.96 cm DO Idania Petznick Work Phone: [facility] 10-10-2022 04:13-0500 Body temperature 97.1 [degF] DO Idania Petznick Work Phone: [facility] 10-10-2022 04:13-0500 Body weight 152 kg DO Idania Petznick Work Phone: [facility] 09-23-2022 04:15-0500 Diastolic blood pressure 89 mm[Hg] DO Idania Petznick Work Phone: [facility] 09-23-2022 04:15-0500 Heart rate 72 /min DO Idania Petznick Work Phone: [facility] 09-23-2022 04:15-0500 Respiratory rate 18 /min DO Idania Petznick Work Phone: [facility] 09-23-2022 04:15-0500 SaO2% (BldA) [Mass fraction] 98 % DO Idania Petznick Work Phone: [facility] 09-23-2022 04:15-0500 Systolic blood pressure 156 mm[Hg] DO Idania Petznick Work Phone: [facility] 09-22-2022 22:41-0500 Body height 187.96 cm DO Idania Petznick Work Phone: [facility] 09-22-2022 22:41-0500 Body temperature 98.2 [degF] DO Idania Petznick Work Phone: [facility] 09-22-2022 22:41-0500 Body weight 144.75 kg DO Idania Petznick Work Phone: [facility] 08-12-2022 16:00-0500 Body height 187.96 cm Ada Moody Other [employer] Other 08-12-2022 16:00-0500 Body mass index (BMI) [Ratio] 40.36 kg/m2 Ada Moody Other [employer] Other 08-12-2022 16:00-0500 Body temperature 97.7 [degF] Ada Moody Other [employer] Other 08-12-2022 16:00-0500 Body weight 142.61 kg Ada Moody Other [employer] Other 08-12-2022 16:00-0500 Diastolic blood pressure 62 mm[Hg] Ada Moody Other [facility] [employer] Other 08-12-2022 16:00-0500 Respiratory rate 18 /min Ada Moody Other [employer] [facility] Other 08-12-2022 16:00-0500 SaO2% (BldA) [Mass fraction] 96 % Ada Moody Other [facility] Other 08-12-2022 16:00-0500 Systolic blood pressure 138 mm[Hg] Ada Moody Other [facility] Other 07-29-2022 02:30-0500 Diastolic blood pressure 75 mm[Hg] DO Idania Petznick Work Phone: [facility] 07-29-2022 02:30-0500 Heart rate 80 /min DO Idania Petznick Work Phone: [facility] 07-29-2022 02:30-0500 Respiratory rate 20 /min DO Idania Petznick Work Phone: [facility] 07-29-2022 02:30-0500 SaO2% (BldA) [Mass fraction] 94 % DO Idania Petznick Work Phone: [facility] 07-29-2022 02:30-0500 Systolic blood pressure 121 mm[Hg] DO Idania Petznick Work Phone: [facility] 07-29-2022 00:02-0500 Body height 185.42 cm DO Idania Petznick Work Phone: [facility] 07-29-2022 00:02-0500 Body temperature 97.6 [degF] DO Idania Petznick Work Phone: [facility] 07-29-2022 00:02-0500 Body weight 143.7 kg DO Idania Ricketts Work Phone: [facility] 07-17-2022 13:13-0500 Body height 182.88 cm [facility] 07-17-2022 13:13-0500 Body mass index (BMI) [Ratio] 42.31 kg/m2 [facility] 07-17-2022 13:13-0500 Body surface area Derived from formula 2.68 m2 [employer] 07-17-2022 13:13-0500 Body weight 141.52 kg [facility]j [facility] 07-17-2022 13:13-0500 Body weight 0.1 {percentile} [facility] 07-17-2022 13:13-0500 Diastolic blood pressure 70 mm[Hg] [facility] 07-17-2022 13:13-0500 Heart rate 64 /min [facility] 07-17-2022 13:13-0500 Systolic blood pressure 130 mm[Hg] [facility] 05-20-2022 17:20-0400 Body height 187.96 cm Ada Moody Other [employer] Other 05-20-2022 17:20-0400 Body mass index (BMI) [Ratio] 39.77 kg/m2 Ada Moody Other [employer] Other 05-20-2022 17:20-0400 Body temperature 96.4 [degF] Ada Moody Other [employer] Other 05-20-2022 17:20-0400 Body weight 140.53 kg Ada Moody Other [employer] Other 05-20-2022 17:20-0400 Diastolic blood pressure 72 mm[Hg] Ada Moody Other [employer] Other 05-20-2022 17:20-0400 Respiratory rate 18 /min Ada Moody Other [employer] Other 05-20-2022 17:20-0400 SaO2% (BldA) [Mass fraction] 97 % Ada Moody Other [employer] Other 05-20-2022 17:20-0400 Systolic blood pressure 150 mm[Hg] Ada Moody Other [employer] Other 03-12-2022 17:20-0400 Body height 187.96 cm Ada Moody Other [employer] Other 03-12-2022 17:20-0400 Body mass index (BMI) [Ratio] 38.68 kg/m2 Ada Moody Other [employer] Other 03-12-2022 17:20-0400 Body temperature 96.4 [degF] Ada Moody Other [employer] Other 03-12-2022 17:20-0400 Body weight 136.67 kg Ada Moody Other [employer] Other 07-07-2022 17:20-0400 Diastolic blood pressure 88 mm[Hg] Ada Moody Other [employer] Other 03-12-2022 17:20-0400 Respiratory rate 18 /min Ada Moody Other [employer] Other 03-12-2022 17:20-0400 SaO2% (BldA) [Mass fraction] 98 % Ada Moody Other [employer] Other 03-12-2022 17:20-0400 Systolic blood pressure 160 mm[Hg] Ada Moody Other [employer] Other 12-03-2021 17:20-0400 Body height 248.92 cm Ada Moody Other [employer] Other 12-03-2021 17:20-0400 Body mass index (BMI) [Ratio] 22.48 kg/m2 Ada Moody Other [employer] Other 12-03-2021 17:20-0400 Body temperature 96.7 [degF] Ada Moody Other [employer] Other 12-03-2021 17:20-0400 Body weight 139.3 kg Ada Moody Other [employer] Other 12-03-2021 17:20-0400 Diastolic blood pressure 90 mm[Hg] Ada Moody Other [employer] Other 12-03-2021 17:20-0400 Respiratory rate 18 /min Ada Moody Other [employer] Other 12-03-2021 17:20-0400 SaO2% (BldA) [Mass fraction] 96 % Ada Moody Other [employer] Other 12-03-2021 17:20-0400 Systolic blood pressure 160 mm[Hg] Ada Moody Other [employer] Other Encounters Encounter Date Encounter Type Care Provider Facility Start: 04-05-2025 End: 04-05-2025 Office outpatient new 45 minutes Maciej JONES Work Phone: [facility] Comment on above: Spinal stenosis of l umbar region with neurogenic claudication (Primary Dx); Diabetic peripheral neuropathy ([facility]-HCC) Start: 03-28-2025 End: 03-29-2025 Emergency department patient visit IDANIA RICKETTS [facility] Start: 03-26-2025 End: 03-26-2025 Emergency department patient visit Idania Ricketts DO Work Phone: -Emergency Room Work Phone: Start: 03-11-2025 End: 03-11-2025 Emergency department patient visit Idania Ricketts DO Work Phone: -Emergency Room Work Phone: Start: 03-07-2025 End: 03-07-2025 ambulatory Idania Ricketts DO Work Phone: [facility] Work Phone: Start: 03-07-2025 End: 03-07-2025 Patient encounter procedure Jye Ramos [facility] Work Phone: Start: 03-01-2025 End: 03-01-2025 Refill Idania Ricketts DO Work Phone: [phone] Comment on above: 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) Start: 02-20-2025 Non-patient / Non-visit Nuria Jeny LP N -[facility] Work Phone: Start: 02-13-2025 End: 02-13-2025 ambulatory Idania Petznick DO Work Phone: [facility] Work Phone: Start: 02-13-2025 End: 02-13-2025 Patient encounter procedure Idania Petznick DO Work Phone: [facility] Work Phone: Start: 02-02-2025 End: 02-02-2025 Emergency department patient visit Delano Benavides [facility] Start: 02-02-2025 End: 02-02-2025 Emergency department patient visit Sherley Templeton MD Work Phone: [facility] Emergency [facility] Comment on above: Idiopathic periphera l neuropathy (Primary Dx); End stage renal disease (HCC); Hyperkalemia Start: 01-01-2025 End: 01-02-2025 Emergency department patient visit Idania Petznick DO Work Phone: [facility] Work Phone: Start: 12-30-2024 End: 12-30-2024 ambulatory [facility] Start: 12-29-2024 End: 12-29-2024 Emergency department patient visit Idania Petznick DO Work Phone: [facility] Work Phone: Start: 12-27-2024 End: 12-27-2024 Emergency department patient visit TANVIR SMITH [facility] Start: 12-21-2024 ambulatory CHONG COOLEY [facility] Start: 12-21-2024 ambulatory HEAVENLY BUENO [facility] Start: 12-12-2024 End: 12-12-2024 ambulatory [facility] Start: 12-12-2024 End: 12-12-2024 ambulatory [facility] Start: 12-12-2024 End: 12-12-2024 Encounter for other preprocedural examination [facility] Start: 12-06-2024 End: 12-06-2024 Emergency department patient visit IDANIA Maeve [facility] Start: 12-05-2024 End: 12-05-2024 Emergency department patient [facility] Start: 12-05-2024 End: 12-05-2024 Bamboo flowsheet Idania Rossick DO Work Phone: [facility] Start: 12-05-2024 End: 12-05-2024 Bamboo flowsheet Idania Rossick DO Work Phone: [facility] Start: 12-05-2024 End: 12-05-2024 Office outpatient visit 25 minutes Idania Ricketts DO Work Phone: [facility] [...] patient visit Idania Ricketts DO Work Phone: [facility]Emer[facility] Work Phone: Start: 11-27-2024 End: 11-27-2024 Emergency department patient visit IDANIA RICKETTS [facility] Start: 11-27-2024 End: 11-27-2024 Emergency department patient visit IDANIA RICKETTS [facility] Start: 11-27-2024 End: 11-27-2024 Telephone encounter Idania Ricketts DO Work Phone: [facility] Comment on above: Med Refill Start: 11-23-2024 Encounter for other preprocedural examination [facility] Start: 11-23-2024 ambulatory [facility] Start: 11-07-2024 End: 11-07-2024 ambulatory [facility] Start: 10-31-2024 End: 10-31-2024 ambulatory [facility] Start: 10-29-2024 End: 10-30-2024 ambulatory Maxime Magana Facility:[facility] Start: 10-29-2024 End: 10-30-2024 Evaluation and management of inpatient Idania Ricketts DO Work Phone: [facility] Work Phone: Start: 10-25-2024 End: 10-26-2024 Emergency department patient visit IDANIA RICKETTS [facility] Start: 10-17-2024 End: 10-17-2024 ambulatory [facility] Start: 10-17-2024 End: 10-17-2024 ambulatory [facility] Start: 10-13-2024 End: 10-13-2024 ambulatory IDANIA RICKETTS Facility:[facility] Start: 10-04-2024 End: 10-04-2024 Telephone encounter Idania Ricketts DO Work Phone: [facility] Comment on above: Referral Start: 10-03-2024 End: 10-03-2024 ambulatory GI MONDRAGON Not Available Start: 10-03-2024 End: 10-03-2024 Office outpatient visit 15 minutes Gi Mondragon DPM Work Phone: [facility] Comment on above: Neuropathy (Primary Dx); Ulcer of right heel and midfoot with fat layer exposed (CMS/HCC); Ulcer of right foot, limited to breakdown of skin (CMS/HCC); Type 2 diabetes mellitus with peripheral neuropathy (CMS/HCC); Chronic kidney disease due to diabetes mellitus (CMS/HCC) Start: 10-02-2024 End: 10-02-2024 Office outpatient visit 15 minutes Idania Ricketts DO Work Phone: [phone] Comment on above: Bilious vomiting wit h nausea (Primary Dx); Type 2 diabetes mellitus with peripheral neuropathy (CMS/HCC) Start: 10-02-2024 End: 10-02-2024 ambulatory IDANIA ROSSICK Not Available Start: 09-19-2024 End: 09-19-2024 Office outpatient visit 15 minutes Idania Rossick DO Work Phone: [phone] Comment on above: Lymphedema (Primary Dx); End stage renal disease (CMS/HCC); Venous stasis dermatitis Start: 09-19-2024 End: 09-19-2024 Patient encounter procedure Gi Mondragon DPM Work Phone: [facility] Comment on above: Ulcer of right heel and midfoot with fat layer exposed (CMS/HCC) (Primary Dx); Ulcer of right foot, limited to breakdown of skin (CMS/HCC); Type 2 diabetes mellitus with peripheral neuropathy (CMS/HCC); Neuropathy Start: 09-19-2024 End: 09-19-2024 ambulatory IDANIA Mcfarlane PETTANOICK Not Available Start: 09-12-2024 End: 09-12-2024 Telephone encounter Idania M Petznick DO Work Phone: [facility] Start: 09-12-2024 End: 09-12-2024 ambulatory [facility] Start: 09-05-2024 End: 09-05-2024 ambulatory [facility] Start: 09-04-2024 End: 09-04-2024 Office outpatient visit 15 minutes Idania Rossick DO Work Phone: [facility] Comment on above: Chronic venous insuf ficiency (Primary Dx); Lymphedema Start: 09-04-2024 End: 09-04-2024 ambulatory IDANIA RICKETTS Not Available Start: 09-01-2024 End: 09-01-2024 Telephone encounter Idania Rossick DO Work Phone: [facility] Start: 08-28-2024 End: 08-29-2024 Emergency department patient visit Idania Rossick DO Work Phone: [facility] Work Phone: Start: 08-22-2024 End: 08-22-2024 ambulatory [facility] Start: 08-22-2024 End: 08-22-2024 ambulatory [facility] Start: 08-08-2024 End: 08-08-2024 ambulatory [facility] Start: 08-08-2024 ambulatory [facility] Start: 08-07-2024 End: 08-07-2024 Office outpatient visit 25 minutes Idania Rossick DO Work Phone: [facility] Comment on above: Obstructive sleep ap bo syndrome (Primary Dx); 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 (CMS/HCC); Type 2 diabetes mellitus with peripheral neuropathy (CMS/HCC); Essential hypertension (CMS/HCC); Peripheral vascular disease (CMS/HCC); End stage renal disease (CMS/HCC); Acquired hypothyroidism (CMS/HCC); Type 2 diabetes mellitus with ESRD (end-stage renal disease) (CMS/HCC); 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, with long-term current use of insulin ([facility]); Chronic kidney disease with end stage renal disease on dialysis due to type 2 diabetes mellitus ([facility]); Anxiety; Dependence on renal dialysis ([facility]); Pure hypercholesterolemia ([facility] Long-term insulin use ([facility]); Hx of amputation of lesser toe, left ([facility]) ([facility]); Class 3 severe obesity due to excess calories with serious comorbidity and body mass index (BMI) of 40.0 to 44.9 in adult ([facility]); Inguinal adenopathy Start: 08-07-2024 End: 08-07-2024 ambulatory IDANIA RICKETTS Not Available Start: 07-28-2024 End: 07-28-2024 ambulatory [facility] Start: 07-27-2024 End: 07-27-2024 ambulatory [facility] Start: 07-27-2024 End: 07-27-2024 Encounter for preprocedural cardiovascular examination [facility] Start: 07-25-2024 End: 07-25-2024 ambulatory [facility] Start: 07-18-2024 End: 07-18-2024 ambulatory [facility] Start: 07-11-2024 Encounter for prepro cedural cardiovascular examination [facility] Start: 07-11-2024 End: 07-11-2024 ambulatory [facility] Start: 07-11-2024 ambulatory [facility] Start: 06-29-2024 End: 06-29-2024 Bambomaia Mondragon DPM Work Phone: [facility] Start: 06-29-2024 End: 06-29-2024 Gordonboo jack Mondragon DPM Work Phone: [facility] Start: 06-29-2024 End: 06-29-2024 Patient encounter procedure Gi Mondragon DPM Work Phone: [facility] Comment on above: Ulcer of right heel and midfoot with fat layer exposed (CMS/HCC) (Primary Dx); Ulcer of right foot, limited to breakdown of skin (CMS/HCC); Type 2 diabetes mellitus with peripheral neuropathy (CMS/HCC); Neuropathy Start: 06-29-2024 End: 06-29-2024 ambulatory GI MONDRAGON Not Available Start: 06-22-2024 End: 06-22-2024 ambulatory [facility] Start: 06-20-2024 End: 06-20-2024 ambulatory ANYA HENLEY [facility] Start: 06-13-2024 End: 06-13-2024 ambulatory REFUGIO [facility] Start: 06-08-2024 End: 06-08-2024 Bamboo flowsheet Gi Mondragon DPM Work Phone: [facility] Start: 06-08-2024 End: 06-08-2024 Bamboo flowsheet Gi Mondragon DPM Work Phone: [facility] Start: 06-08-2024 End: 06-08-2024 Patient encounter procedure Gi Mondragon DPM Work Phone: [facility] Comment on above: Ulcer of right heel and midfoot with fat layer exposed (CMS/HCC) (Primary Dx); Type 2 diabetes mellitus with peripheral neuropathy ([facility]/HCC); Neuropathy Start: 06-08-2024 End: 06-08-2024 ambulatory GI MONDRAGON Not Available Start: 05-30-2024 End: 05-31-2024 Telephone encounter Sophia Martini MA [facility] Start: 05-26-2024 End: 05-26-2024 ambulatory ADAMS TATE [facility] Start: 05-23-2024 ambulatory [facility] Start: 05-18-2024 End: 05-18-2024 Bamboo flowsheet Gi Mondragon DPM Work Phone: [facility] Start: 05-18-2024 End: 05-18-2024 Bamboo flowsheet Gi Mondragon DPM Work Phone: [facility] Start: 05-18-2024 End: 05-18-2024 Patient encounter procedure Gi Mondragon DPM Work Phone: [facility] Comment on above: Ulcer of [...] 15 minutes Idania Ricketts DO Work Phone: [facility] Comment on above: Type 2 diabetes conrad itus with peripheral neuropathy (CMS/HCC) (Primary Dx); Anxiety Start: 05-15-2024 End: 05-15-2024 Emergency department patient visit DO Idania Ricketts Work Phone: [facility] Work Phone: Start: 05-04-2024 End: 05-04-2024 Bamboo flowsheet Gi Mondragon DPM Work Phone: [facility] Start: 05-04-2024 End: 05-04-2024 Bamboo flowsheet Gi Mondragon DPM Work Phone: [facility] Start: 05-04-2024 End: 05-04-2024 Patient encounter procedure Gi Mondragon DPM Work Phone: [facility] Comment on above: Ulcer of right heel and midfoot with fat layer exposed (CMS/HCC) (Primary Dx); Ulcer of right foot, limited to breakdown of skin ([facility]) Start: 05-04-2024 End: 05-04-2024 ambulatory GI H MONDRAGON Not Available Start: 04-26-2024 End: 04-27-2024 Apoloniaalicia Guadalupe [employer] [phone] Comment on above: 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 ([facility]) Start: 04-13-2024 End: 04-13-2024 ambulatory GI H MONDRAGON Not Available Start: 03-30-2024 End: 03-30-2024 ambulatory GI H MONDRAGON Not Available Start: 03-16-2024 End: 03-16-2024 ambulatory GI H MONDRAGON Not Available Start: 02-29-2024 End: 02-29-2024 ambulatory GI H MONDRAGON Not Available Start: 02-25-2024 End: 02-25-2024 ambulatory IDANIA M PETTANOICK Not Available Start: 02-14-2024 End: 02-14-2024 ambulatory GI H MONDRAGON Not Available Start: 02-07-2024 End: 02-07-2024 ambulatory GI H MONDRAGON Not Available Start: 02-04-2024 End: 02-04-2024 Admission to [facility] DO Idania Petznick Work Phone: [facility] [place] Start: 02-04-2024 End: 02-04-2024 ambulatory DO Idania Petznick Work Phone: [facility] Work Phone: Start: 02-02-2024 End: 02-02-2024 ambulatory GI H MONDRAGON Not Available Start: 01-24-2024 End: 01-24-2024 ambulatory GI H MONDRAGON Not Available Start: 2024 End: 2024 ambulatory GI H MONDRAGON Not Available Start: 01-03-2024 End: 01-03-2024 ambulatory DO Idania Petznick Work Phone: [facility] Work Phone: Start: 01-03-2024 End: 01-03-2024 Patient encounter procedure DO Idania Petznick Work Phone: [facility] Vascular Surgery Work Phone: Start: 12-27-2023 End: 12-27-2023 ambulatory GI Marlo MONDRAGON Not Available Start: 12-24-2023 End: 12-24-2023 Admission to same day surgery center DO Idania Petznick Work Phone: [facility] [place] Start: 12-24-2023 End: 12-24-2023 ambulatory DO Idania Petznick Work Phone: [facility] Work Phone: Start: 12-21-2023 End: 12-21-2023 ambulatory GI H MONDRAGON Not Available Start: 12-08-2023 End: 12-08-2023 ambulatory GI H MONDRAGON Not Available Start: 12-06-2023 End: 12-06-2023 ambulatory DO Idania Petznick Work Phone: [facility] Work Phone: Start: 12-06-2023 End: 12-06-2023 Patient encounter procedure DO Idania Petznick Work Phone: [facility] Vascular Surgery Work Phone: Start: 11-25-2023 End: 11-25-2023 Emergency department patient visit DO Idania Petznick Work Phone: [facility] Work Phone: Start: 11-22-2023 End: 11-23-2023 Non-patient / Non-visit DO Idania Petznick Work Phone: [facility] Infectious Disease Work Phone: Start: 11-21-2023 End: 11-23-2023 Non-patient / Non-visit DO Idania Petznick Work Phone: [facility] Nephrology Work Phone: Start: 11-20-2023 End: 11-23-2023 Non-patient / Non-visit DO Idania Petznick Work Phone: [facility] Med OutPt Work Phone: Start: 11-20-2023 End: 11-23-2023 Evaluation and management of inpatient DO Idania Petznick Work Phone: [facility] Med Surg Work Phone: Start: 11-15-2023 End: 12-21-2023 ambulatory DO Idania Petznick Work Phone: [facility] Work Phone: Start: 11-15-2023 End: 12-21-2023 Discharged Recurring DO Idania Petznick Work Phone: [facility]-Infusion Therapy - O/P Work Phone: Start: 11-15-2023 Registered Recurring DO Alliso n Petznick Work Phone: [facility]-Infusion Therapy - [facility]/P Work Phone: Start: 11-08-2023 End: 11-08-2023 Patient encounter procedure DO Idania Petznick Work Phone: [facility] Vascular Surgery Work Phone: Start: 10-27-2023 End: 10-27-2023 Admission to same day surgery center DO Idania Petznick Work Phone: [facility] [place] Start: 10-27-2023 End: 10-27-2023 ambulatory DO Idania Petznick Work Phone: [facility] Work Phone: Start: 10-18-2023 External Result Encounter Flakito High DO Work Phone: [facility] External Department Unsolicited Start: 10-18-2023 External Result Encounter Flakito High DO Work Phone: [facility] External Department Unsolicited Start: 10-18-2023 End: 10-18-2023 ambulatory DO Idania Petznick Work Phone: [facility] Work Phone: Start: 10-18-2023 End: 10-18-2023 Patient encounter procedure DO Idania Petznick Work Phone: [facility]Rcr-[employer] Testing Work Phone: Start: 10-13-2023 Chart abstracting Flakito bah DO Work Phone: [facility] Start: 10-13-2023 End: 10-13-2023 Office outpatient visit 25 minutes Flakito High DO Work Phone: [facility] Comment on above: Peritoneal dialysis catheter dysfunction, subsequent encounter (CMS/[facility]) (Primary Dx) Start: 10-07-2023 End: 10-07-2023 ambulatory Tondra Mapus Other [employer] Other Start: 10-07-2023 Telephone encounter Michelle Kennedy [facility] Start: 10-06-2023 Non-patient / Non-visit DO All kavita Petznick Work Phone: [facility] Vascular Surgery Work Phone: Start: 10-04-2023 End: 10-04-2023 ambulatory Ramirez Jean Other [employer] Other Start: 10-04-2023 Office outpatient vi sit 25 minutes Ramirez Jean [facility] Vascular Surgery Start: 10-04-2023 End: 10-04-2023 Patient encounter procedure DO Idania Petznick Work Phone: [facility]- Start: 09-27-2023 End: 09-27-2023 ambulatory DO Idania Petznick Work Phone: [facility] Work Phone: Start: 09-27-2023 End: 09-27-2023 Patient encounter procedure DO Idania Petznick Work Phone: [facility]-Ultrasound [facility] [place] Work Phone: Start: 09-25-2023 End: 09-26-2023 Emergency department patient visit DO Idania Petznick Work Phone: [facility]-Emergency Room Work Phone: Start: 09-16-2023 End: 09-16-2023 Admission to same day surgery center DO Idania Petznick Work Phone: [facility] [place] Start: 09-16-2023 End: 09-16-2023 ambulatory DO Idania Petznick Work Phone: [facility] Work Phone: Start: 08-26-2023 End: 08-26-2023 ambulatory Rasheeda Byront Other [employer] Other Start: 08-26-2023 Telephone encounter Rasheeda Byront [facility] Start: 08-10-2023 End: 08-10-2023 ambulatory Tondra Mapus Other [employer] Other Start: 08-10-2023 Telephone [address] Tondra Mapus [facility] Start: 08-09-2023 End: 08-09-2023 Emergency department patient visit DO Idania Ricketts Work Phone: [facility]-Emergency Room Work Phone: Start: 07-27-2023 End: 07-27-2023 ambulatory Tondra Mapus Other [employer] Other Start: 07-27-2023 Telephone encounter Tondra Mapus [facility] Start: 07-14-2023 End: 07-14-2023 ambulatory Tondra Mapus Other [employer] Other Start: 07-14-2023 Telephone encounter Tondra Mapus [facility] Start: 07-07-2023 End: 07-07-2023 ambulatory Tondra Mapus Other [employer] Other Start: 07-07-2023 Telephone encounter Tondra Mapus [facility] Start: 06-28-2023 End: 06-28-2023 ambulatory Tondra Mapus Other [employer] Other Start: 06-28-2023 Telephone encounter Tondra Mapus [facility] Start: 06-26-2023 End: 06-26-2023 ambulatory DO Idania Ricketts Work Phone: [facility] Work Phone: Start: 06-26-2023 End: 06-26-2023 Patient encounter procedure DO Idania Ricketts Work Phone: [facility]-Lab [facility] [place] Work Phone: Start: 06-22-2023 End: 06-22-2023 ambulatory Tondra Mapus Other [employer] Other Start: 06-22-2023 Telephone encounter Tondra Mapus [facility] Start: 06-21-2023 End: 06-21-2023 ambulatory Tondra Mapus Other [employer] Other Start: 06-21-2023 Telephone encounter Tondra Mapus [facility] Start: 06-16-2023 Registered Recurring DO Edgar n Petznick Work Phone: [facility] Work Phone: Start: 06-16-2023 End: 06-16-2023 ambulatory Tondra Mapus Other [employer] Other Start: 06-16-2023 FQHC visit new patient Michelle Kennedy [facility] Start: 03-11-2023 Office Services Sj Singh November and Other [facility] Office Start: 01-29-2023 Office Services Sj Singh November and Other [facility] Office Start: 12-18-2022 Office Services Sj Singh November and Other [facility] Office Start: 12-04-2022 (Dialysis T) Dialysi s Training Ada Moody [facility] Start: 12-04-2022 End: 12-04-2022 ambulatory Ada Moody Other [employer] Other Start: 11-20-2022 End: 11-20-2022 ambulatory DO Idania Petznick Work Phone: [facility] Work Phone: Start: 11-20-2022 End: 11-20-2022 Patient encounter procedure DO Idania Petznick Work Phone: [facility] [place] Work Phone: Start: 11-13-2022 Office Services Sj Singh November and Other [facility] Office Start: 11-04-2022 End: 11-07-2022 Evaluation and management of inpatient DO Idania Petznick Work Phone: [facility] Work Phone: Start: 11-04-2022 End: 11-04-2022 ambulatory Ada Moody Other [employer] Other Start: 11-04-2022 Telephone encounter Ada Moody [facility] Start: 11-02-2022 End: 11-02-2022 ambulatory DO Idania Petznick Work Phone: [facility] Work Phone: Start: 11-02-2022 End: 11-02-2022 Patient encounter procedure DO Idania Petznick Work Phone: [facility] [place] Work Phone: Start: 11-01-2022 End: 11-01-2022 Emergency department patient visit DO Idania Petznick Work Phone: [facility] Work Phone: Start: 10-26-2022 Office Services Sj Hoffman and Other [facility] Office Start: 10-10-2022 End: 10-10-2022 Emergency department patient visit DO Idania Petznick Work Phone: [facility] Work Phone: Start: 10-09-2022 End: 10-10-2022 ambulatory Sj Francois DPM Facility:[facility] Start: 10-09-2022 Office Services Sj Hoffman and Other [facility] Office Start: 09-22-2022 End: 09-23-2022 Emergency department patient visit DO Idania Petznick Work Phone: [facility] Work Phone: Start: 08-14-2022 Office Services Sj Singh March and Other [facility] Office Start: 08-12-2022 End: 08-12-2022 ambulatory Ada Moody Other [employer] Other Start: 08-12-2022 Office outpatient vi sit 25 minutes Ada Moody [facility] Nephrology Clinic [place] Start: 08-12-2022 Telephone encounter Ada Moody [facility] Nephrology Start: 08-03-2022 End: 08-03-2022 ambulatory DO Idania Petznick Work Phone: [facility] Work Phone: Start: 08-03-2022 End: 08-03-2022 Patient encounter procedure DO Idania Petznick Work Phone: [facility]-Lab [facility] Start: 07-28-2022 End: 07-29-2022 Emergency department patient visit DO Idania Petznick Work Phone: [facility] Start: 07-24-2022 Office Services Sj Singh Yasmin and Other [facility] Office Start: 07-17-2022 End: 07-18-2022 ambulatory Sj Francois DPM Facility:[facility] Start: 07-17-2022 Office outpatient ne w 30 minutes Sj Singh Alessandro Other [facility] Office Start: 06-27-2022 End: 06-27-2022 ambulatory DO Idania Petznick Work Phone: [facility] Work Phone: Start: 06-27-2022 End: 06-27-2022 Patient encounter procedure DO Idania Petznick Work Phone: [facility]-Lab [facility] Start: 06-18-2022 Encounter for prepro cedural laboratory examination DR M[facility] Start: 06-16-2022 End: 06-16-2022 ambulatory Ada Moody Other [employer] Other Start: 06-16-2022 Telephone encounter Ada Moody [facility] Nephrology Start: 06-15-2022 End: 06-16-[address] IDANIA RICKETTS Facility:[facility] Start: 06-15-2022 End: 06-16-2022 Encounter for preprocedural laboratory examination DR IDANIA RICKETTS Facility:[facility] Start: 05-20-2022 End: 05-20-2022 ambulatory Ada Moody Other [employer] Other Start: 05-20-2022 Office outpatient vi sit 25 minutes Ada Moody [facility] Nephrology Clinic [place] Start: 05-16-2022 End: 05-16-2022 Patient encounter procedure DO Idania Petznick Work Phone: [facility] [place] Start: 05-01-2022 End: 05-02-2022 ambulatory BERTIN YVONNE Facility:[facility] Start: 03-12-2022 End: 03-12-2022 ambulatory Ada Moody Other [employer] Other Start: 03-12-2022 Office outpatient vi sit 25 minutes Ada Moody [facility] [place] Start: 03-06-2022 End: 03-07-2022 ambulatory KEVIN WILKES Facility:[facility] Start: 02-26-2022 End: 02-27-2022 ambulatory KEVIN WILKES Facility:[facility] Start: 02-25-2022 End: 02-25-2022 ambulatory Ada Moody Other [employer] Other Start: 02-25-2022 Telephone encounter Ada Moody [facility] Start: 02-20-2022 End: 02-20-2022 Patient encounter procedure DO Idania Ricketts Work Phone: [facility] [place] Start: 02-19-2022 End: 02-20-2022 ambulatory KEVIN WILKES Facility:[facility] Start: 02-09-2022 End: 02-10-2022 ambulatory KEVIN WILKES Facility:[facility] Start: 01-27-2022 End: 01-28-[address] IDANIA RICKETTS Facility:[facility] Start: 01-21-2022 End: 01-21-2022 ambulatory KEVIN WILKES Facility:[facility] Start: 12-31-2021 End: 01-01-2022 ambulatory KEVIN D CHUNG Facility:[facility] Start: 12-03-2021 End: 12-03-2021 ambulatory Ada Moody Other [employer] Other Start: 12-03-2021 Office outpatient vi sit 25 minutes Aad Moody [facility] [place] Procedures Date Procedure Procedure Detail Performing Clinician [...] metabolic pane l calcium total Flakito C Laffay DO Work Phone: Start: 09-27-2023 US angiography DO Allis on Petznick Work Phone: Start: 09-25-2023 Plain chest X-ray DO Al lison Petznaston Work Phone: Start: 09-25-2023 SARS-CoV-2, Influenz a & RSV (PCR) DO Idania Petkorina Work Phone: Start: 09-16-2023 Plain chest X-ray DO Al amy Petkorina Work Phone: Start: 09-16-2023 Fluoroscopic guidance D O Idania Ricketts Work Phone: Start: 09-02-2023 Debridement muscle & [...] inserti on of peritoneal dialysis catheter DO [employer] Work Phone: Start: 11-05-2022 SARS-CoV-2, Influenz a & RSV (PCR) DO [employer] Work Phone: Start: 11-04-2022 Plain chest X-ray DO Al amy Appota Work Phone: Start: 11-01-2022 Plain chest X-ray DO Al amy Appota Work Phone: Start: 11-01-2022 Screening for occult blood in feces DO [employer] Work Phone: Start: 10-09-2022 Duplex scan of lower limb veins Sj Alessandro Start: 09-25-2022 Debridement muscle & fascia 20 sq cm/< Sj P Alessandro Other Start: 09-03-2022 Colonoscopy Flakito Lafbernadette y DO Work Phone: Start: 08-14-2022 Foot destructive procedure Sj Alessandro Start: 08-14-2022 Procedure on wound Geronimo velasquez Alessandro Start: 07-24-2022 Evaluation AND/OR wen cummins - established patient Sj Alessandro Start: 07-23-2022 Docrev cur meds by [facility] clin Sj [facility] Start: 07-23-2022 Procedure on wound Geronimo velasquez Alessandro Start: 07-17-2022 Docrev cur meds by eli clin Sj [facility] Start: 07-17-2022 Procedure on wound Geronimo velasquez Alessandro Start: 07-17-2022 Wound microscopy, cu lture and sensitivities Sj Alessandro Start: 04-07-2022 PSA screening [facility]ERTIN [facility] Comment on above: Order Comment: only males 40 and older Performed By: #### 4 [id number], [id number], [id number], [id number], [id number] #### [facility] [address] Plan of Treatment Date Care Activity Detail Author Start: 06-20-2034 Screening for malign ant neoplasm of colon [facility] Start: 09-03-2032 Screening for malign ant neoplasm of colon [facility] Start: 05-01-2031 DTaP,Tdap and Td Vac cines (3 - Td or Tdap) DTaP,Tdap and Td Vaccines (3 - Td or Tdap) [facility] Start: 04-05-2026 Adult BMI Screening Adult BMI Screen ing [facility] Start: 04-05-2026 Tobacco Screening Tobacco Screening [facility] Start: 06-22-2025 Urine screening for protein Diabetes: Urine Protein Screening [facility] Start: 05-23-2025 Urine screening for protein Diabetes: Urine Protein Screening [facility] Start: 05-17-2025 End: 05-17-2025 Patient encounter procedure 05/17/2025 10:30 AM EDT Office Visit [facility] Family Medicine [address] [place] [address] [place] [address] Chintan Quinn, [address] [place] [address], [address], [place] [address] [facility] Start: 05-10-2025 End: 05-10-2025 Patient encounter procedure 05/10/2025 1:00 PM EDT Office Visit [facility] [address] [place] [id number] Maciej Roldan PA [address] [place], [place] [id number] [facility] Start: 05-07-2025 Influenza vaccination [facility] Start: 04-27-2025 End: 04-27-2025 Admission to same day surgery center 04/27/2025 1:55 PM EDT - 04/27/2025 2:02 PM EDT Surgery [facility] Procedures [address] [place] [address] Tyshawn Jacobson MD [address] [facility] [place] [address] INJECTION BLOCK EPIDURAL CAUDAL STEROID [92796 (CPT )] [facility] Comment on above: INJECTION BLOCK EPID URAL CAUDAL STEROID [84723 (CPT )] Start: 04-27-2025 End: 04-27-2025 Njx dx/ther sbst intrlmnr lmbr/sac w/img gdn INJECTION BLOCK EPIDURAL CAUDAL STEROID Spinal stenosis of lumbar region with neurogenic claudication 04/27/2025 1:55 PM EDT [facility] Start: 04-27-2025 Subsequent hospital visit by physician 04/27/2025 1:55 PM EDT Hospital Encounter [facility] [address] [place] [facility] [place] [address] Tyshawn Jacobson MD [address] [place], [place] [id number] [facility] Start: 03-05-2025 Influenza vaccination Influenza Vacc ine (#1) [facility] Comment on above: Postponed from 05/07 (Supply/Drug Shortage) Start: 01-06-2025 Glaucoma screening Diabetes: R etinopathy Screening [facility] Start: 12-05-2024 End: 12-05-2024 Patient encounter procedure 12/05/2024 2:00 PM EDT Office Visit [facility] [address] [place] [phone] Idania Ricketts DO [address] [place] [address] Arrived [facility] [address] Comment on above: Arrived Start: 11-27-2024 Duplex scan of lower limb veins US venous duplex LE RT [facility] Start: 11-27-2024 US Lower extremity v ein - right [facility] Start: 11-08-2024 [facility] Start: 11-07-2024 [facility] Start: 11-06-2024 End: 11-06-2024 Patient encounter procedure 11/06/2024 11:30 AM EST Office Visit [facility] [address] [place] [address] Idania Ricketts DO [address] [place] [address] [facility] Start: 11-06-2024 [facility] Start: 11-05-2024 [facility] Start: 11-04-2024 [facility] Start: 11-03-2024 [facility] Start: 11-02-2024 [facility] Start: 11-01-2024 [facility] Start: 10-31-2024 [facility] Start: 10-30-2024 [facility] Start: 10-29-2024 [facility] Start: 10-29-2024 MRI of right foot wi th contrast MR foot RT wo/w con [facility] Start: 10-29-2024 Hospital admission [facility] Start: 10-29-2024 Patient referral to dietitian [facility] Start: 10-29-2024 Referral to infectio us diseases physician [facility] Start: 10-29-2024 Referral to supervisor abattoir [facility] Start: 10-29-2024 Referral to rapid transit operator [facility] Start: 10-29-2024 [facility] Start: 10-29-2024 [facility] Start: 10-29-2024 Bacteria identified in Blood by Culture Blood Culture [facility] Start: 10-12-2024 End: 10-12-2024 Patient encounter procedure 10/12/2024 9:45 AM EST Office Visit [facility] [address] [place] [address] Gi Mondragon, DPM [address] [place] [address] [facility] Start: 10-11-2024 Hemoglobin A1c measurement Diabetes: Hemoglobin A1C [facility] Start: 10-03-2024 End: 10-03-2024 Patient encounter procedure 10/03/2024 9:30 AM EST Office Visit [facility] [address] [place] [address] Gi Mondragon, DPM [address] [place] [address] [facility] Start: 09-30-2024 Medicare Annual Well ness (AWV) Medicare Annual Wellness (AWV) [facility] Start: 09-12-2024 End: 09-12-2024 Patient encounter procedure 09/12/2024 9:30 AM EST Office Visit [facility] [address] [place] [address] Gi Mondragon DPM [address] [place] [address] [facility] Start: 08-29-2024 End: 08-29-2024 Patient encounter procedure 08/29/2024 9:30 AM EST Office Visit [facility] [address] [place] [address] Gi Mondragon, DPM [address] [place] [address] [facility] Start: 08-08-2024 End: 08-08-2024 Patient encounter procedure 08/08/2024 9:30 AM EST Office Visit [facility] [address] [place] [phone] Gi Mondragon, DPM [address] [place] [address] [facility] Start: 07-18-2024 End: 07-18-2024 Patient encounter procedure 07/18/2024 11:00 AM EST [facility] [address] [place] [phone] Gi Mondragon, DPM [address] [place] [address] [facility] Start: 06-30-2024 End: 06-30-2024 Patient encounter procedure [facility] [address] Comment on above: Type 2 diabetes conrad itus with foot ulcer, with long-term current use of insulin ([facility]) Start: 06-29-2024 End: 06-29-2024 Patient encounter procedure [facility] Comment on above: Arrived Start: 06-08-2024 End: 06-08-2024 Patient encounter procedure [facility] Comment on above: Arrived Start: 05-27-2024 Hemoglobin A1c measurement Diabetes: Hemoglobin A1C [facility] Start: 05-18-2024 End: 05-18-2024 Patient encounter procedure [facility] Comment on above: Arrived Start: 05-07-2024 COVID-19 Vaccine ( season) COVID-19 Vaccine () [facility] Start: 05-07-2024 Influenza vaccination Influenza Vacc ine (#1) [facility] Start: 05-04-2024 End: 05-04-2024 Patient encounter procedure [facility] Comment on above: Arrived Start: 04-27-2024 Urine screening for protein Diabetes: Urine Protein Screening [facility] Start: 02-04-2024 [facility] [facility] Start: 12-30-2023 End: 12-30-2023 Patient encounter procedure 12/30/2023 1:15 PM EDT Office Visit [facility] [address] [place] [address] VandanaIdania clancy M, DO [address] [place] [address] [facility] [address] Start: 12-24-2023 [facility] Start: 12-18-2023 Glaucoma screening Diabetes: R etinopathy Screening [facility] Start: 12-06-2023 Ultrasonography of arteriovenous fistula US AV Fistula [facility] Start: 12-06-2023 US AV fistula [facility] Start: 11-25-2023 [facility] Start: 11-24-2023 [facility] Start: 11-23-2023 End: 11-23-2023 [facility] Start: 11-22-2023 [facility] Start: 11-21-2023 Referral to infectio us diseases physician [facility] Start: 11-21-2023 Referral to rapid transit operator [facility] Start: 11-21-2023 [facility] Start: 11-20-2023 Hospital admission [facility] Start: 11-20-2023 Referral to supervisor abattoir [facility] Start: 11-20-2023 [facility] Start: 11-20-2023 Plain chest X-ray XR chest 2V* [facility] Start: 11-20-2023 XR Chest 2 Views [facility] Start: 11-20-2023 [facility] Start: 11-20-2023 Bacteria identified in Blood by Culture Blood Culture [facility] Start: 11-20-2023 Blood culture for bacteria, including anaerobic screen Blood Culture [facility] Start: 11-20-2023 Extraction of Right Foot Skin, External Approach Extraction of Right Foot Skin, External Approach [facility] Start: 11-20-2023 Performance of Urina ry Filtration, Intermittent, Less than 6 Hours Per Day Performance of Urinary Filtration, Intermittent, Less than 6 Hours Per Day [facility] Start: 11-10-2023 End: 11-10-2023 Patient encounter procedure 11/10/2023 9:30 AM EST Office Visit [facility] [address] [place] [address] Flakito High, DO [address] [place] [address] [facility] [address] [facility] Start: 11-01-2023 End: 11-01-2023 Patient encounter procedure 11/01/2023 12:15 PM EST Procedure Visit [facility] Flakito High, DO [address] [place] [address] [facility] Start: 10-27-2023 [facility] Start: 10-13-2023 End: 10-13-2023 Patient encounter procedure 10/13/2023 11:15 AM EST Office Visit [facility] [address] [place] [address] Flakito High, DO [address] [facility] [address] [place] [address] [facility] Start: 10-06-2023 [facility] Start: 10-06-2023 [facility] Start: 09-27-2023 US angiography US map hemodia l access SLIM [facility] Start: 09-27-2023 US Unspecified body region [facility] Start: 09-25-2023 Plain chest X-ray XR chest 1V portab le [facility] Start: 09-25-2023 XR Chest Single view Fi [facility] Start: 09-16-2023 [facility] Start: 09-16-2023 [facility] Start: 07-28-2023 Hemoglobin A1c measurement Diabetes: Hemoglobin A1C [facility] Start: 05-07-2023 Influenza vaccination Influenza Vacc ine (#1) [facility] Start: 03-11-2023 Debridement open wou nd 20 sq cm/< Active debridement of wound 20 square centimeters or less [employer] Start: 11-20-2022 Hepatitis B core ant ibody measurement [facility] Start: 11-20-2022 [facility] Start: 11-08-2022 Blood chemistry [facility] Start: 11-08-2022 [facility] Start: 11-07-2022 Blood chemistry [facility] Start: 11-07-2022 End: 11-07-2022 [facility] Start: 11-06-2022 Blood chemistry [facility] Start: 11-06-2022 [facility] Start: 11-05-2022 Blood chemistry [facility] Start: 11-05-2022 [facility] Start: 11-04-2022 Hospital admission [facility] Start: 11-04-2022 Referral to supervisor abattoir [facility] Start: 11-04-2022 [facility] Start: 11-04-2022 Insertion of Infusio n Device into Peritoneal Cavity, Percutaneous Endoscopic Approach Insertion of Infusion Device into Peritoneal Cavity, Percutaneous Endoscopic Approach [facility] Start: 11-01-2022 [facility] Start: 11-01-2022 Plain chest X-ray XR chest 2V* [facility] Start: 11-01-2022 XR Chest 2 Views [facility] Start: 10-09-2022 Dup-scan xtr veins unilateral/limited study [facility] Start: 07-17-2022 Cul bact xcpt urine blood/stool aerobic isol Wound culture and sensitivity [facility] Start: 05-19-2022 Urine screening for protein Diabetes: Urine Protein Screening [facility] Start: 1989 Adult BMI Follow Up Plan Adult BMI Follow Up Plan [facility] Start: 1989 Diabetic foot examination Diabetic F oot Exam [facility] Start: 1983 Depression Screening Depression Scre ening [facility] Start: 1971 Glaucoma screening Diabetic Op hthalmology Exam [facility] Start: 1971 Screening for malign ant neoplasm of colon [facility] Start: 1971 Tobacco Counseling Tobacco Counselin [facility] Anion gap measurement [facility] aPTT in Platelet poo r plasma by Coagulation assay [facility] Basophils [#/volume] in Blood by Automated count [facility] Basophils/100 leukoc ytes in Blood by Automated count [facility] CBC W Auto Different ial panel - Blood CBC and differential Lab Routine Bilious vomiting with nausea Ordered: 10/02/2024 [facility] Comment on above: Ordered: 10/02/2024 Comprehensive metabo lic 2000 panel - Serum or Plasma Comprehensive metabolic panel Lab Routine Bilious vomiting with nausea Ordered: 10/02/2024 [facility] Work Phone: Comment on above: Ordered: 10/02/2024 Eosinophils/100 leukocytes in Blood by Automated count [facility] Erythrocyte distribu tion width [Ratio] by Automated count [facility] Erythrocytes [#/volu me] in Blood [facility] Glucose measurement estimated from glycated hemoglobin [facility] Hematocrit [Volume Fraction] of Blood [facility] Hemoglobin [Mass/vol ume] in Blood [facility] Hemoglobin A1c/Hemoglobin.total in Blood [facility] INR in Platelet poor plasma by Coagulation assay [facility] Insulin C-peptide measurement [facility] Leukocytes [#/volume ] corrected for nucleated erythrocytes in Blood by Automated coun [facility] Leukocytes [#/volume ] in Blood [facility] Lymphocytes [#/volum e] in Blood by Automated count [facility] Lymphocytes/100 leukocytes in Blood by Automated count [facility] MCH [Entitic mass] b y Automated count [facility] MCHC [Mass/volume] b y Automated count [facility] MCV [Entitic volume] by Automated count [facility] Monocytes [#/volume] in Blood by Automated count [facility] Monocytes/100 leukoc ytes in Blood by Automated count [facility] Neutrophils [#/volum e] in Blood by Automated count [facility] Neutrophils/100 leukocytes in Blood by Automated count [facility] Nucleated erythrocyt es [Presence] in Blood by Automated count [facility] Patient Education [facility] Work Phone: Patient referral [facility] Work Phone: Platelet mean volume [Entitic volume] in Blood by Automated count [facility] Platelets [#/volume] in Blood [facility] Prothrombin time (PT) [facility] Renal function 2000 panel - Serum or Plasma [facility] End: 02-02-2025 SPECIMEN REJECTION [facility] Comment on above: Once for 1 Occurrenc es starting 02/02/2025 until 02/02/2025 Thyrotropin [Units/volume] in Serum or Plasma TSH Lab Routine Bilious vomiting with nausea Ordered: 10/02/2024 [facility] Comment on above: Ordered: 10/02/2024 US AV fistula [facility] Immunizations Immunization Date Immunization Notes Care Provider Fa [facility] 06-20-2024 influenza virus vaccine, unspecified formulation Maciej JONES Work Phone: [employer] 11-13-2022 zoster vaccine recombinant Flakito Laffay DO Work Phone: [facility] 11-05-2022 influenza, injectabl e, quadrivalent, preservative free DO Idania Petznick Work Phone: [facility] 11-05-2022 influenza virus vaccine, unspecified formulation Flakito Laffay DO Work Phone: [facility] 08-12-2021 COVID-19 Ad26.COV2.S (Billie) DO Idania Petznick Work Phone: [facility] 01-23-2021 COVID-19 Ad26.COV2.S (Billie) DO Idania Petznick Work Phone: [facility] 06-18-2019 influenza, high dose seasonal, preservative-free Flakito Laffay DO Work Phone: [facility] 06-18-2019 influenza, injectabl e, quadrivalent, preservative free DO Idania Petznick Work Phone: [facility] 06-29-2014 seasonal influenza, intradermal, preservative free Flakito Laffay DO Work Phone: [facility] 06-26-2013 seasonal influenza, intradermal, preservative free Flakito Laffay DO Work Phone: [facility] Healthcare Payers Date Payer Category Payer Medicare HMO [facility] MEDICARE [id number] 2024 Medicare [id number] 2023 Medicare (Managed Care) [id number] 2023 Private Health Insurance [id number] 2023 Medicare [id number]. 1.13.693. 2.7.3.577857.315 2023 Unknown [id number] 2.16.840.1.347234.3.441 2023 Medicaid 1.2.840.163591. 1.13.693. 2.7.3.221999.315 2023 Medicaid [id number] 2.16.840.1.609607.3.441 2022 Unknown 1971 Unknown [id number] 2.16.840.1.990548.3.579. 2.647 1971 Unknown [id number] 2.16.840.1.671057.3.579. 2.196 1971 Unknown [id number] 2.16.840.1.440154.3.579. 2.196 1971 Unknown [id number] 2.16.840.1.262986.3.579. 2.593 1971 Unknown [id number] 2.16.840.1.022463.3.579. 2.59 1971 Unknown [id number] 2.16.840.1.077825.3.579. 2.593 1971 Unknown [id number] 2.16.840.1.469670.3.579. 2.59 1971 Unknown [id number] 2.16.840.1.835897.3.579. 2.59 1971 Unknown [id number] 2.16.840.1.922083.3.579. 2.59 1971 Unknown [id number] 2.16.840.1.102270.3.579. 2.593 1971 Unknown [id number] 2.16.840.1.725905.3.579. 2.718 1971 Unknown [id number] 2.16.840.1.485148.3.579. 2.1258 1971 Unknown [id number] 2.16.840.1.140182.3.579. 2.1258 1971 Unknown [id number] 2.16.840.1.404461.3.579. 2.1258 1971 Unknown [id number] 2.16.840.1.168717.3.579. 2.1258 1971 Unknown [id number] 2.16.840.1.713484.3.579. 2.1258 1971 Unknown [id number] 2.16.840.1.610255.3.579. 2.1258 1971 Unknown [id number] 2.16.840.1.673389.3.579. 2.1258 1971 Unknown [id number] 2.16.840.1.578535.3.579. 2.1258 1971 Unknown [id number] 2.16.840.1.338628.3.579. 2.1258 1971 Unknown [id number] 2.16.840.1.660344.3.579. 2.1258 1971 Unknown [id number] 2.16.840.1.652143.3.579. 2.1258 1971 Unknown [id number] 2.16.840.1.932599.3.579. 2.1258 1971 Unknown [id number] 2.16.840.1.027418.3.579. 2.1258 1971 Unknown [id number] 2.16.840.1.636066.3.579. 2.1258 1971 Unknown [id number] 2.16.840.1.721604.3.579. 2.1258 1971 Unknown [id number] 2.16.840.1.379007.3.579. 2.1258 1971 Unknown [id number] 2.16.840.1.785105.3.579. 2.1258 1971 Unknown [id number] 2.16.840.1.431133.3.579. 2.1258 1971 Unknown [id number] 2.16.840.1.047014.3.579. 2.1258 1971 Unknown [id number] 2.16.840.1.338466.3.579. 2.1258 1971 Unknown [id number] 2.16.840.1.665769.3.579. 2.1258 1971 Unknown [id number] 2.16.840.1.374227.3.579. 2.1258 1971 Unknown [id number] 2.16.840.1.009656.3.579. 2.1258 1971 Unknown [id number] 2.16.840.1.889290.3.579. 2.1258 1971 Unknown [id number] 2.16.840.1.656111.3.579. 2.1259 1971 Unknown [id number] 2.16.840.1.069202.3.579. 2.1259 1971 Unknown [id number] 2.16840.1.324984.3.579. 2.173 1971 Unknown [id number] 2.840.1.313101.3.579. 2.727 1971 Unknown [id number] 2.16840.1.976445.3.579. 2.128 1971 Unknown [id number] 2.0.1.664197.3.579. 2.1285 1971 Unknown [id number] 2.0.1.306325.3.579. 2.1285 1971 Unknown [id number] 2.0.1.394666.3.579. 2.1285 1971 Unknown [id number] 2.0.1.090664.3.579. 2.1285 1971 Unknown [id number] 2.0.1.299216.3.579. 2.1285 1971 Unknown [id number] 2.0.1.570832.3.579. 2.1285 1971 Unknown [id number] .0.1.835362.3.579. 2.1286 1959 Self-pay [id number] 1959 Unknown [id number] 10.22.830.1.422537.19 Medicare [id number] Medicare [id number] 2.0.1.358060.19 Unknown [id number] Unknown [id number] 2.840.1.504922.3.579. 2.593 Unknown [id number] 2.16.840.1.310141.3.579. 2.531 Unknown [id number] 2.16.840.1.422164.3.579. 2.531 Unknown [id number] 2.16.840.1.617140.3.579. 2.531 Unknown [id number] 2.16.840.1.288238.3.579. 2.531 Unknown [id number] 2.16.840.1.172912.3.579. 2.531 Unknown [id number] 2.16.840.1.345438.3.579. 2.531 Unknown [id number] 2.16.840.1.366899.3.579. 2.531 Unknown [id number] 2.16.840.1.701488.3.579. 2.531 Social History Date Type Detail Facility Unknown if ever smoked [facility] Start: 10-17-2020 End: 09-30-2023 Sex Assigned At [facility] Start: 09-11-2021 End: 08-09-2023 Tobacco smoking status [facility] Never smoked tobacco (finding) [facility] Start: 1970 Sex Assigned At Male [facility] Start: 09-23-2022 Tobacco smoking status [facility] Smoker (finding) [facility] Start: 03-02-2023 End: 02-02-2025 Tobacco use and exposure Smokeless tobacco non-user [facility] Start: 10-13-2023 End: 12-05-2024 Alcohol intake Lifetime non-drinker (finding) [facility] Start: 10-17-2020 End: 09-30-2023 History of Social function [facility] How [...] At Not on file [facility] Start: 04-11-2015 End: 10-30-2024 Sex Male (finding) [facility] Do you belong to any clubs or organizations such as faith groups, unions, fraternal or athletic groups, or [...] months, were you homeless or living in senior living [including now]? No [facility] Tobacco smoking status [facility] Start: 08-09-2023 Tobacco use and exposure User of smokeless tobacco [facility] History of tobacco use Chews Tobacco [facility] Start: 04-05-2025 Alcoholic beverage intake Current non-drinker of alcohol (finding) [facility] Medical Equipment Procedure Code Equipment Code Equipment Origin al Text Equipment Identifier Dates Wound debridement Collagen wound matrix dressing ()[id number] FDA Start: 12-24-2023 Wound debridement Collagen wound matrix dressing ()[id number] FDA Start: 02-04-2024 Wound debridement Collagen wound matrix dressing ()[id number] FDA Start: 02-04-2024 Insertion, catheter, dialysis, peritoneal, laparoscopic Peritoneal dialysis catheter, chronic ()[id number] FDA Start: 11-06-2022 Fluoroscopic guidance for insertion of tunnelled dialysis catheter Double-lumen haemodialysis catheter, implantable +[id number]$$ [id number] FDA Start: 09-16-2023 Goals Date Patient Goal Desired Activity /State Functional Status Date Assessment Result Facility 11-23-2023 Functional status Patient at Baseline [facility] Work Phone: 11-07-2022 Functional status Patient at Baseline [facility] Work Phone: Mental Status Date Assessment Result Facility 11-23-2023 Cognitive function Cognitive Sta tus Patient at Baseline [facility] Work Phone: 11-07-2022 Cognitive function Cognitive Sta tus Patient at Baseline [facility] Work Phone: Clinical Notes 08-21-2021 to 04-05-2025 KAREN Box - 04/05/2025 10:00 AM EDTPatient Instructions Note Date & Type Note Facility 04-05-2025 History of Present illness Narrative [facility] [address] [place] [address] Patient: Evans Forte Jr. Sex: male : 1970 Age: 55 y.o. PCP: IDANIA RICKETTS, DO 04/05/2025 Evans Forte Jr. is here for a(n) initial [...] and 10/10 to slim feet). The pain is severe. The pain is The same all the [...] on 5-9am via left avf Diabetes mellitus ([facility]) Diabetes mellitus type 2, controlled ([facility]) Hyperlipidemia Hypothyroid Obesity Past Surgical History: Procedure Laterality Date CARDIAC CATHETERIZATION 12/2024 last one (2 total) FISTULA CREATION Left FOOT SURGERY Right Allergies Allergen Reactions Vancomycin Hives [employer] Abdominal Pain Runny nose, watery eyes [...] Resource Strain: Medium Risk (12/05/2024) Received from [facility] Overall Financial Resource Strain (CARDIA) Difficulty of Paying Living Expenses: Somewhat hard Food Insecurity: No Food Insecurity (04/05/2025) Hunger Screening Food Insecurity - Worry: Never True Food Insecurity - Inability: Never True Transportation Needs: No Transportation Needs (12/05/2024) Received from [facility] PRAPARE - Transportation Lack of Transportation (Medical): No Lack of Transportation (Non-Medical): No Physical Activity: Insufficiently Active (12/05/2024) Received from [facility] Exercise Vital Sign Days of Exercise per Week: 3 days Minutes of Exercise per Session: 30 min Stress: Stress Concern Present (12/05/2024) Received from [facility] - Occupational Stress Questionnaire Feeling of Stress : To some extent Social Connections: Socially Integrated (12/05/2024) Received from [facility] Social Connection and Isolation Panel [NHANES] Frequency of Communication with Friends and Family: More than three times a week Frequency of Social Gatherings with Friends and Family: Three times a week Attends Voodoo Services: 1 to 4 times per year Active Member of Clubs or Organizations: Yes Attends Club or Organization Meetings: 1 to 4 times per year Marital Status: Interpersonal Safety: Not At Risk (12/21/2024) Received from [facility] Humiliation, Afraid, Rape, and Kick questionnaire Fear of Current or Ex-Partner: No Emotionally Abused: No Physically Abused: No Sexually Abused: No Housing Instability: High Risk (12/05/2024) Received from [facility] Housing Stability Vital Sign Unable to Pay [...] cm (6' 2 ) Wt (!) 152.4 kg (336 lb) SpO2 98% BMI 43.14 kg/m Physical Exam: GENERAL - Healthy patient that [...] during discussion, demonstrated appropriate cognitive reasoning and understanding of the medical condition by asking appropriate questions regarding the diagnosis and risks/benefits/alternatives of treatment modalities. No obvious deficits in memory, reasoning, or intellect. Lumbar: SKIN - No rashes or bruising in the area of the patient s pain. LYMPH NODES - demonstrate no obvious enlargement. EXTREMITIES - Lower extremities are warm, with minimal edema and palpable pulses. Tenderness to palpation noted in the lumbar spine and paraspinal musculature. Pain is elicited with flexion, extension, and lateral rotation of the lumbar spine. Range of motion is diminished with these motions due to pain. Facet palpation is noted to be somewhat tender and facet loading maneuvers are mildly positive, but not concordant with the patient s normal pain complaints. STRENGTH - noted to [...] is negative. Gait is normal. Assessment/Treatment Plan: Evans was seen today for back pain. Diagnoses and all orders for this visit: Spinal stenosis of lumbar region with neurogenic claudication - Case request operating room: INJECTION BLOCK EPIDURAL CAUDAL STEROID Diabetic peripheral neuropathy ([facility]) PLAN IN OFFICE QTENZA 8% PATCH APPLICATION [...] and continued relief. Risks and benefits were discussed, and patient would like to proceed with the [...] procedure was described in detail to the patient as well as the potential benefits of pain [...] the injection, additional modalities of therapy including medications and physical therapy may need to be [...] monitoring for toxicity We do not currently prescribe any controlled substance from this practice. The spine [...] as a result. Additional consideration will need to be given to timing the procedure early in [...] End Stage Renal disease Due to the patient s history of renal disease, special care will be used in selecting a medication regimen that will not affect or be affected by renal function. If medications that have an effect on the kidneys are necessary, they will only be instituted after careful consideration of the risks and benefits. OARRS: Reviewed. Scribe Statement: IMinda CNA, scribed for and in the presence of KAREN BOX who performed the above service. Minda Paiz CNA 04/05/25 1043 KAREN Box 04/05/25 1155 documented in this encounter [employer] 04-05-2025 Instructions Minda Paiz CNA - 04/05/2025 10:00 AM EDT Epidural Steroid Injection (AMBER) / Nerve Root Injection / Nerve Block These procedure(s) involve the injection of a steroid and anesthetic into the epidural space or the nerve sheath that is both diagnostic and potentially therapeutic for alleviating discomfort of the legs and arms secondary to compression of the respective nerves due to bulging discs, bone spurs and other potential causes. Steroids are potent anti-inflammatory drugs [...] a safety precaution, you must have a cart driver after a lumbar nerve root injection, even if you do not receive sedation. Resume activity as tolerated when function has returned. Medications Resume your routine medications after your procedure. You may resume blood thinners per your regular schedule after the procedure. If you received sedation: If you received sedation for your procedure, you may feel sleepy or not yourself for several hours today. For the next [...] take you to the nearest emergency room. Tell the emergency room staff that you recently had [...] back to normal. documented in this encounter [facility] 03-26-2025 Hospital Discharge instructions Additional Instructions Very important that you are able to make your dialysis appointment on Wednesday. Recommend follow-up with your primary care provider and pain management. It is very important that you follow up with your primary care provider in the next 2-3 days unless instructed to do otherwise. If you do not have a primary care provider, you can contact [facility] and ask about being established for primary care services. If you require specialist follow up, such as with an orthopedic physician, sports coordinator, urologist, or other medical specialty, you should contact the specialty clinic as soon as possible to schedule a follow up appointment. If you are established with a specialist, you can contact your preferred physician for follow up. If you are not already established with the specialist you need, you may have contact information provided to you with these discharge instructions. If you are being prescribed medications, take exactly as prescribed. Antibiotics, if prescribed, should be taken until the entire course is completed. You should not have left over antibiotics. Continue to take any previously prescribed home medications unless instructed otherwise. If you are experiencing fever or mild to moderate pain, you should first take Tylenol or ibuprofen available stic-kei-kisghzi. Medications, if prescribed to treat pain from the emergency department, are intended to provide relief for severe pain that is not relieved by other methods of pain relief, you should use these medications cautiously as many are known to cause sedation/sleepiness, increased risk for falls, and other effects such as constipation. If your symptoms worsen please return to the ED or if you have any other concerns [facility] Work Phone: 02-13-2025 Evaluation note Diagnosis Onset Date Resolution Diabetic peripheral neuropathy acute February 13, 2025 8:20am Lumbar radiculopathy acute February 13, 2025 8:20am Other chronic pain acute February 042024 8:20am Lumbar radiculopathy acute March 07, 2025 3:40pm Other chronic pain acute March 072024 3:40pm [facility] Work Phone: 1(120) 527-136105-30-2025 Hospital Discharge instructions Patient Education 02/02/2025 18:32:46 [...] relieve pain. Medicines may include: ?Prescription or bkky-pos-uzldkej pain medicine. ?Anti-seizure medicine. ?Antidepressants. ?Pain-relieving patches that are applied to painful areas of skin. Surgery to relieve pressure on a nerve or to destroy a nerve that is causing pain. Physical therapy to help improve movement and balance. Devices to help you move around (assistive devices). Follow these instructions at home: Medicines Take sbwt-qfx-nwkeeai and prescription medicines only as told by [...] important. Where to find more information National [place] of Neurological Disorders: www.ninds.nih.gov Contact a health [...] provider. Document Revised: 04/28/2022 Document Reviewed: 04/28/2022 TDX Patient Education 2023 [employer]. 02/02/2025 18:32:46 Acute Pain, Adult Acute Pain, [...] Follow these instructions at home: Medicines Take xezz-yag-ijgwzvc and prescription medicines only as told by [...] pain is severe. ?Do not take other nqry-luu-ddxvynl pain medicines in addition to prescription pain [...] to keep your urine pale yellow. Take utzh-hfo-dtwsrxi or prescription medicines. Eat foods that are [...] provider. Document Revised: 03/17/2023 Document Reviewed: 03/17/2023 TDX Patient Education 2023 [employer]. 02/02/2025 18:32:46 Neuropathic Pain Neuropathic Pain Neuropathic [...] treated? Treatment for neuropathic pain may change lead time. You may need to try different treatment options or a combination of treatments. Some options include: Treating the underlying cause of the neuropathy, such as diabetes, kidney disease, or vitamin deficiencies. Stopping medicines that can cause neuropathy, such as chemotherapy. Medicine to relieve pain. Medicines may include: ?Prescription or glwj-bmh-jaqdvtw pain medicine. ?Anti-seizure medicine. ?Antidepressant medicines. ?Pain-relieving [...] Follow these instructions at home: Medicines Take sibe-nkl-cahuvun and prescription medicines only as told by your health care provider. Ask your health care provider if the medicine prescribed to you: ?Requires you to avoid driving or using machinery. ?Can cause constipation. You may need to take these actions to prevent or treat constipation: ?Drink enough fluid to keep your urine pale yellow. ?Take bzio-jlh-gvaadda or prescription medicines. ?Eat foods that are [...] the National Suicide Prevention Lifeline at or 704. This is open 24 hours a day. Text the Crisis Text Line at 051707. Summary Neuropathic pain is pain caused by [...] provider. Document Revised: 04/20/2022 Document Reviewed: 04/20/2022 TDX Patient Education 2023 [employer]. Follow Up Care 02/02/2025 18:06:53 With:IDANIA RICKETTS Address: [address] [place] [address], [place] [id number] [facility] (1) When:02/05/2025 18:24:24 Comments:Call for diagnosis based follow up [facility] 05-30-2025 NoteED Patient Education Note Neurology Peripheral [...] pain. Medicines may include: ? Prescription or qapp-lkb-llkgtpk pain medicine. ? Anti-seizure medicine. ? Antidepressants. ? Pain-relieving patches that are applied to painful areas of skin. ??? Surgery to relieve pressure on a nerve or to destroy a nerve that is causing pain. ??? Physical therapy to help improve movement and balance. ??? Devices to help you move around (assistive devices). Follow these instructions at home: Medicines ??? Take nbgb-smv-eedhzlg and prescription medicines only as told by [...] system. Living wi (more content not included)... 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 * Hyperkalemia (Swiss) * Kidney Disease: Medicines to Avoid (Swiss) * Neuropathic Pain (Swiss) [facility]25 [place] [address] Subjective Patient ID: Evans Forte is a [...] rescheduled his thoracic imaging and [facility]. He continues to [...] of left foot Type 2 diabetes mellitus ([facility]/HCC) Charcot's joint of foot Hypertension, essential Acquired hypothyroidism Hyperlipidemia Vitamin D deficiency Libido, decreased Erectile dysfunction Hypogonadism male Diabetic neuropathic arthropathy (CMS/HCC) Diabetic neuropathy with neurologic complication (CMS/HCC) End stage renal disease ([facility]/HCC) Glaucoma Hypoglycemia due to type 2 diabetes mellitus ([facility]/HCC) Iron deficiency anemia 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, 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, trunk halfway current use of insulin (CMS/HCC) Microalbuminuria Mild left ventricular systolic dysfunction Morbid obesity (CMS/HCC) Obstructive sleep apnea syndrome Osteomyelitis (CMS/HCC) Polyneuropathy due to type 2 diabetes mellitus ([facility]/HCC) Ulcer of right foot with fat layer exposed (CMS/HCC) Pure hypercholesterolemia 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, unspecified eye ([facility]) PVD (peripheral vascular disease) Adrenal nodule Anxiety Insomnia Osteomyelitis of left foot ([facility]/HCC) Diabetic retinopathy ([facility]/HCC) Past history of chewing tobacco use Mild nonproliferative diabetic retinopathy associated with type 2 diabetes mellitus ([facility]/HCC) Diabetic foot ulcers ([facility]/HCC) Chronic sinusitis COVID-19 Anemia Preop examination Cardiovascular stress test abnormal Current tobacco use Enlarged lymph node Lymphedema Venous stasis dermatitis Neuropathic pain Intervertebral disc disorders with radiculopathy, lumbar region Past Medical History: Diagnosis Date Adrenal nodule left adrenal adenoma Anemia Anxiety Charcot foot due to diabetes mellitus ([facility]/HCC) Right, s/p reconstructive surgery Chronic sinusitis COVID-19 08/2023 Diabetic foot ulcers ([facility]/HCC) right Diabetic polyneuropathy ([facility]) Diabetic retinopathy ([facility]/HCC) ED (erectile dysfunction) ESRD (end stage renal disease) ([facility]) 11/23/2022 GERD (gastroesophageal reflux disease) Glaucoma History of tobacco use Hyperlipidemia Hypertension Hypogonadism in male Hypothyroidism Insomnia Neuropathy Obesity Osteomyelitis of ankle or foot, left, acute ([facility]/HCC) Pancreatitis x2 Past history of chewing tobacco use Peripheral artery disease Proteinuria Sleep apnea Type 2 diabetes mellitus ([facility]/HCC) Vitamin D deficiency Past Surgical History: [...] AMPUTATION Left Left lesser (more content not included)...[facility] 12-21-[address] Jasmin Junior MD / MD Treasure Jimenes, [place] / Heavenly Bueno CNP / Yokasta Hughes [...] scans to review with MD. Heavenly Bueno, [facility] Medical Oncology/Hematology [phone] SUBJECTIVE: HPI: Evans Forte 54 y.o. man, [...] pericervical, anterior cervical, late (more content not included)...[facility]04-01-2025 History of Present illness Narrative* Idania Ricketts [...] with chief complaint of ER Follow-up HPI: [facility] ER FOLLOW UP FROM 11/27/2024 Complains [...] one will be placed in the 12/21/2024 Sheffield works well to help control the pain. Asking for a refill to last until the 10th Elavil and lyrica do not provide any [...] bg. Flowsheet Row Documentation from 11/28/2024 in [facility] with Elsy Carter MA Hospital Information ED, Hospital or Fci Facility Discharge? ED Patient has been contacted within 2 days of being seen in the ED Yes Diagnosis -- [Edema right lower leg] Discharge Date 11/27/24 Discharged To: Home Setting Discharge Hospital [facility] Engagement Medications Discharge medications reviewed and reconciled from hospital? Yes Prescription Comments -- [Hydrocodone-acet 5-325mg Q4-6H prn] Appointments Does the patient have a primary care provider? Yes Self Management Patient Teaching Wrap Up SUBJECTIVE: See medication list at the end of the note. Allergies Allergen Reactions Latex Rash Other Reaction(s): Unknown If on for long periods of time Vancomycin Hives Haloperidol Anxiety [employer] Oil GI intolerance Runny nose, watery eyes [...] Type 2 diabetes mellitus with peripheral neuropathy ([facility]) Discussed that opioids are not the correct [...] edema, with long-term current use of insulin ([facility]) Long-term insulin use ([facility]) Class 3 severe obesity due to excess calories with serious comorbidity and body mass index (BMI) of40.0 to 44.9 in adult Hx of amputation of lesser toe, left (HCC) ([facility]) Chronic kidney disease with end stage renal disease on dialysis due to type 2 diabetes mellitus ([facility]) Follow up for Next scheduled follow-up. Patient's [...] 5,000 UNITS TABLET Daily. CONTINUOUS BLOOD GLUC CLUTCH SPECIALIST (DEXCOM G7 CLUTCH SPECIALIST) DEVICE 1 (one) time each day [...] with the patient today. documented in this encounterSelect Specialty [id number] Telephone encounter Note* Telephone Encounter - Gretchen Plummer - 11/27/2024 3:43 PM EDT Lyrica refill sent to [facility]. [facility] [id number] Miscellaneous Notes* Telephone Encounter - Gretchen Plummer - 11/27/2024 3:43 PM EDT Lyrica refill sent to [facility]. documented in this encounterSelect Specialty [id number] Note Attestation signed by Chong Cooley MD [...] the trial produced relief. Pain Medicine Medical [address] [address] Referral Source: self-referral, found spinal cord stimulator [...] adequate relief longer than 1 week duration, Sheffield with fair relief, Lyrica with inadequate relief, [...] Medical History: Diagnosis Date (more content not included)...[facility] 11-07-2024 NoteDate of Telehealth Visit: 11/07/2024 Follow up on right foot wound and LAP HPI The visit was conducted yyyc-ji-jifl with the use of audio and video technology using HIPAA approved [employer] System between patient and the provider for [...] in 2 months Faustino Morel MD Infectious diseasesLakeHealth [facility]Point [facility] Center02-25-2025 NotePatient was seen today in wound clinic. Documentation is provided in [employer] EHR wound care documenting system. See [employer] [...] closes. RTC 2-3 weeks GDMT for PAD: krishan carlinLakeHealth TriPoint [facility] Center02-24-2025 Progress note Author Kit Lundy [facility] Note Date/Time October 30, 2024 6:06am [facility] ENTER [address] [place] [address] Progress Note Signed Patient: Evans Forte MR#: [id number] : 1970 Acct:[id number] Age/Sex: 54 / M Adm Date: 5 Loc: 4N Room: [address] [place] [address] Type: ADM IN Attending Dr: Maxime Magana [...] patient declined and still wants to leave [place] and go to [facility] tomorrow. Documented By: Kit Lundy MD 10/30/24101 Signed By: <Electronically signed by Kit Lundy MD> 10/30/24605 [facility] Work Phone: 1(506) 515-746902-24-2025 [place] [id number] Progress Note Signed Patient: Evans Forte MR#: [id number] : 1970 Acct:[id number] Age/Sex: 54 / M Adm Date: 5 Loc: 4N Room: 7M9811-7 Type: ADM IN Attending Dr: Maxime Magana [...] wants to leave [facility] and go to [facility] tomorrow. Documented By: Kit Lundy MD 10/30/24 0102 Signed By: 10/30/24 0606 [facility]02-23-2025 History and physical note Author Maxime Magana [facility] Note Date/Time October 29, 2024 9:14pm [facility] ENTER [address] [place] [address] Hospitalist H&P Signed Patient: Evans Forte MR#: [id number] : 1970 Acct:[id number] Age/Sex: 54 / M Adm Date: 5 Loc: Room: [address] [place] [address] Type: ADM IN Attending Dr: Maxime Magana DO Copies to: DO Maxime Dhillon, ~ HPI DATE OF EXAMINATION: 10/29/24 CHIEF COMPLAINT: right foot infection, right leg cellulitis. HISTORY OF PRESENT ILLNESS: This is a 54-year-old man who came to the emergency room with right foot infection. This is located in the heel. He went to the [facility] for a wound care center appointment and he says they opened it and they dug around really deep. He explains that he was made to go to the wound care center at the [facility] because the kidney transplant program there wants him to get everything done at the [facility]. So he has had only 1 visit [...] by podiatry with Dr. Wilkes out of [place]. So there are a number of plates [...] of getting on the transplant list at [facility] and the last thing that he [...] except as mentioned elsewhere in the documentation. [facility] Medical History (Updated 10/29/24 @ 21:11 by [...] (AV) fistula creation History of cardiac catheterization [facility] History of orthopedic surgery right foot has [...] % (Auto) 14.2 % (.) 10/29/24 18:14 Thomas % (Auto) 6.8 % (.) 10/29/24 18:14 Eos % (Auto) 3.4 % (.) 10/29/24 18:14 Baso % (Auto) 1.1 % (.) 10/29/24 18:14 Nucleat RBC Rel Count 0.0 /100 WBC (0-0.5) 10/29/24 18:14 Neut # (Auto) 7.5 x10E3/uL (1.8-7.7) 10/29/24 18:14 Lymph # (Auto) 1.4 x10E3/uL (1.00-4.8) 10/29/24 18:14 Thomas # (Auto) 0.7 x10E3/uL (0.0-0.8) 10/29/24 18:14 [...] days): 5 Documented By: Maxime Magana DO 2099 Signed By: <Electronically signed by Maxime Magana DO> 10/29/242113 [facility] Work Phone: 1(295) 387-259202-23-2025 Evaluation note* Diagnosis Onset Date Resolution Status Admit Date Benign hypertension with end-stage renal disease acute October 29, 2024 7:28pm Cellulitis acute October 29, 2024 7:28pm Cellulitis of leg, right acute October 29, 2024 7:28pm ESRD on hemodialysis acute 2024 7:28pm Right foot infection acute 2024 7:28pm Type 2 diabetes mellitus wit h diabetic chronic kidney disease acute October 29, [address]25 7:[address]pm [facility] Work Phone: 1(833) 166-731102-23-2025 [place] [address] Hospitalist H&P Signed Patient: Evans Forte MR#: [id number] : 1970 Acct:[id number] Age/Sex: 54 / M Adm Date: 5 Loc: 4N Room: 7O0934-8 Type: ADM IN Attending Dr: Maxime Magana DO Copies to: DO Maxiem Dhillon, ~ HPI DATE OF EXAMINATION: 10/29/24 CHIEF COMPLAINT: right foot infection, right leg cellulitis. HISTORY OF PRESENT ILLNESS: This is a 54-year-old man who came to the emergency room with right foot infection. This is locatedin the heel. He went to the [facility] for a wound care center appointment and he says they opened it and they dug around really deep. He explains that he was made to go to the wound carecenter at the [facility] because the kidney transplant program there wants him to get everything done at the [facility]. So he has had only 1 visit [...] by podiatry with Dr. Wilkes out of [place]. So there are a number of plates [...] of getting on the transplant list at [facility] and the last thing that he [...] except as mentioned elsewhere in the documentation. [facility] Medical History (Updated 10/29/24 @ 21:11 by [...] (AV) fistula creation History of cardiac catheterization [facility] History of orthopedic surgery right foot has [...] % (Auto) 14.2 % (.) 10/29/24 18:14 Thomas % (Auto) 6.8 % (.) 10/29/24 18:14 Eos % (Auto) 3.4 % (.) 10/29/24 18:14 Baso % (Auto) 1.1 % (.) 10/29/24 18:14 Nucleat RBC Rel Count 0.0 /100 WBC (0-0.5) 10/29/24 18:14 Neut # (Auto) 7.5 x10E3/uL (1.8-7.7) 10/29/24 18:14 Lymph # (Auto) 1.4 x10E3/uL (1.00-4.8) 10/29/24 18:14 Thomas # (Auto) 0.7 x10E3/uL (0.0-0.8) 10/29/24 18:14 [...] By: Maxime Magana DO 2100 Signed By: 10/29/242113 [facility]02-11-2025 NotePatient was seen today in wound clinic. Documentation is provided in [employer] wound care documenting system. See [employer] note for full details. Right heel DFU [...] evidence of significant arterial occlusive disease bilaterally. [facility]02-11-2025 NoteSubjective Patient ID: Evans Forte is a 54 y.o. male who presents for pre transplant evaluation HPI A 54 year old male patient with ESRD on HD since Sep 2023, is in the process of renal transplant evaluation, has two ulcers on the right foot, one heal and one on the sole first metatarsal, he follows rapid transit operator for this, during his evaluation CT abdomen [...] of water. 90 tablet (more content not included)...[facility]01-29-2025 Telephone encounter Note* Telephone Encounter - Gretchen Plummer - 10/04/2024 9:10 AM EST Pt's spouse is requesting a Referral, office notes, medication list to Dr. Martel for pain management fax [phone] [facility] [id number] Miscellaneous Notes* Telephone Encounter - Gretchen Plummer - 10/04/2024 9:10 AM EST Pt's spouse is requesting a Referral, office notes, medication list to Dr. Martel for pain management fax [phone] documented in this encounterSelect Specialty [id number] History of Present illness Narrative* Gi Mondragon [...] boot for offloading/pressure reduction. Patient does have [facility] for dressing changes. Encouraged him to keep [...] the patient to go to [facility] in [place] for their DM shoes and inserts. 4. Patient will be contacted for appointment information once pre-certification has been completed if required. documented in this encounterSelect Specialty [id number] History of Present illness Narrative* Idania Ricketts [...] periods of time Vancomycin Hives Haloperidol Anxiety [employer] Oil GI intolerance Runny nose, watery eyes [...] 5,000 UNITS TABLET Daily. CONTINUOUS BLOOD GLUC CLUTCH SPECIALIST (DEXCOM G7 CLUTCH SPECIALIST) DEVICE 1 (one) time each day [...] with the patient today. documented in this encounterSelect Specialty [id number] NoteDr[address] Catia dunham both [facility]01-14-2025 History of Present illness Narrative* Idania Ricketts [...] testing came back normal. He saw the baker operator automatic after this and they referred him to [...] periods of time Vancomycin Hives Haloperidol Anxiety [employer] Oil GI intolerance Runny nose, watery eyes [...] Addressed This Visit End stage renal disease (CMS/HCC) Relevant Medications bumetanide (Bumex) 2 MG tablet Venous stasis dermatitis Lymphedema - Primary Relevant Medications HYDROcodone-acetaminophen (Sheffield) 5-325 MG tablet Other Relevant Orders Ambulatory [...] notes that he is getting narcotics from [place] about every 3 months. He states that he doesn't go to [place] and that those are not his. He also says some of his dialysis medications keep getting sent to a kevin in [place] with the same name. He is to [...] 5,000 UNITS TABLET Daily. CONTINUOUS BLOOD GLUC CLUTCH SPECIALIST (DEXCOM G7 CLUTCH SPECIALIST) DEVICE 1 (one) time each day [...] with the patient today. documented in this encounterSelect Specialty [id number] History of Present illness Narrative* Gi Mondragon [...] 5. RTC: 2-3 weeks. documented in this encounterSelect Specialty [id number] NoteTC returned message to patient regarding work up status. Patient states has completed lymph node biopsy and bone biopsy and both came back negative. Patient recommended to follow up with infectious disease regarding lymph nodes. Patient continues to work on nicotine cessation, dental and podiatry. Patient will update TC after appointment with infectious disease. Melinda Hidalgo, JACOBUnWyandot [facility]01-07-2025 Telephone encounter Note* Telephone Encounter - Gretchen Plummer - 09/12/2024 10:51 AM EST Pt's spouse called stating pt has cellulitis. Lower part of right leg is red, hot to the touch, andswollen. She feels he needs an antibiotic called in. [facility] in [place]. [facility] [id number] Miscellaneous Notes* Telephone Encounter - Gretchen Plummer - 09/12/2024 10:51 AM EST Pt's spouse called stating pt has cellulitis. Lower part of right leg is red, hot to the touch, andswollen. She feels he needs an antibiotic called in. [facility] in [place]. documented in this encounterSelect Specialty [id number] Note Attestation signed by Sivan Keller MD [...] Dr. Jasmin Junior MD / MD Treasure Jimeneslain, [place] / Heavenly Bueno CNP / Yokasta Hughes [...] 08/22/2024 MCH 30.9 1 (more content not included)...[facility] 09-05-2024 NoteSubjective Patient ID: Evans Forte is [...] Summary Flow cytometry studies were completed at [facility]: Leukemia/lymphoma phenotyping evaluation by flow cytometry: - [...] the past 36 hour(s)). No follow-ups on file.[facility]12-30-2024 History of Present illness Narrative* Idania Ricketts, DO - 09/04/2024 1:30 PM EST Images from the original note were not included. Evans Forte is a 54 y.o. male presents with chief complaint of ER Follow-up HPI: [facility] ER Follow up from 08/28/2024 He did [...] in [facility] 230 with Idania Ricketts, DO Hospital Information ED, Hospital or Fci Facility Discharge? ED Patient has been contacted within 1 week of being seen in the ED Yes Diagnosis right leg edema Discharge Date 08/28/24 Discharged To: Home Setting Discharge [facility] Engagement Admission Date 08/28/24 Medications Discharge medications reviewed and reconciled from hospital? Yes Appointments Self Management Patient Teaching Wrap Up Wrap Up Additional Comments appt 09/04/2024 SUBJECTIVE: See medication list at the end of the note. Allergies Allergen Reactions Latex Rash Other Reaction(s): Unknown If on for long periods of time Vancomycin Hives Other Reaction(s): Unknown Other reaction(s): Unknown Haloperidol Anxiety [employer] Oil GI intolerance Runny nose, watery eyes [...] 5,000 UNITS TABLET Daily. CONTINUOUS BLOOD GLUC CLUTCH SPECIALIST (DEXCOM G7 CLUTCH SPECIALIST) DEVICE 1 (one) time each day at the same time. CONTINUOUS BLOOD GLUC SENSOR (DEXCOM G7 SENSOR) MIS as directed every 10 days for 90 [...] with the patient today. documented in this encounterSelect Specialty [id number] Telephone encounter Note* Telephone Encounter - Gretchen Plummer - 09/01/2024 8:04 AM EST Copied from [facility] #[id number]. Topic: Clinical Support >> Aug 31, 2024 12:54 PM Jennifer Bone wrote: called in stating that he was seen at [facility] ER for his leg, but they refused to treat his leg, they gave him an ibuprofen and sent him home, but the thinks his right leg may be infected. Shewas advised to go to Urgent Care or ER but she will not go back to [facility]. She wanted to let Dr Emerson know what is going on and to advise what to do. Select Specialty [id number] Miscellaneous Notes* Telephone Encounter - Gretchen Plummer - 09/01/2024 8:04 AM EST Copied from [facility] #[id number]. Topic: Clinical Support >> Aug 31, 2024 12:54 PM Jennifer Bone wrote: called in stating that he was seen at [facility] ER for his leg, but they refused to treat his leg, they gave him an ibuprofen and sent him home, but the thinks his right leg may be infected. Shewas advised to go to Urgent Care or ER but she will not go back to [facility]. She wanted to let Dr Emerson know what is going on and to advise what to do. documented in this encounterSelect Specialty [id number] NotePatient: Evans Forte Procedure Summary Date: 08/22/24 Room / Location: [facility] OPERATING ROOM 05 / [facility] Operating Room Anesthesia Start: 1554 [...] PACU per anesthesia protocol. No notable events documented.[facility]12-17-2024 Note Patient: Evans Forte Procedure Information Date/Time: 08/22/24 1545 Procedure: EXCISIONAL RIGHT GROIN LYMPH NODE BIOPSY (Right: Groin) - PATIENT HAS APPT IN THE HOSP AT 11, CASE WILL FOLLOW HIS OTHER APPT AND [facility], MAKE SURE TO GETN CONSENT PRIOR PER CT Location: [facility] OPERATING [facility]OM 05 / [facility] Operating Room Surgeons: Erick Carter [...] breakfast. Yes Historical Prov (more content not included)...[facility]12-17-2024 NoteSedation Preparation Pre Procedure Evaluation Pre Procedure Evaluation: H&P was reviewed and the patient was examined. No change has occurred in the patient's condition since the H&P has been completed. ASA Score ASA: 3 Mallampati Mallampati: III Informed Consent Sedation Plan and Risks Explained: PatientUnW[facility]ot [facility] 08-22-2024 NotePlease let path know to add NGS for mds and myeloid with hypercellular marrow Thanks Sivan Keller MDUnWyandot Memorial Hospital12-17-2024 NoteProcedure: CT-guided bone marrow biopsy and bone marrow aspiration Staff: Esme Resident: Marquise Contrast: None Complications: None Medications: Versed 2 mg iv. Fentanyl 100 mcg iv. Moderate sedation was monitored by the interventional radiology nursing staff. Total sedation time of 20 minutes Indication: Concern for lymphoma, staging Procedure: Using CT guidance, the Conjure system was used to perform bone marrow [...] aspirate and biopsy. Electronically signed: Jey Victoria. Henrik JassodtAlonsoUniversity Hospitals Cleveland [facility] Center12-03-2024 NoteSubjective Patient ID: Evans Forte [...] skull base to mid thigh FDG Order: [id number] Status: Final result Visible to patient: Yes (seen) Dx: Enlarged lymph nodes; Pre-transplant ... 0 Result Notes Details Reading Physician Reading Date Result Priority Alonso Jaffe MD [phone] 07/31/2024 Routine Narrative & Impression History: Pretransplant [...] CT abdomen pelvis wo renal recipient Order: [id number] Status: Edited Result - FINAL Visible to patient: Yes (seen) Dx: Pre-transplant evaluation for kidney ... 0 Result Notes Details Reading Physician Reading Date Result Priority Alonso Sampson MD [phone] 07/12/2024 Routine Addenda Addendum: Note that there [...] iliac arteries. No suspiciou (more content not included)...[facility] 08-08-2024 Note Attestation signed by Sivan Keller [...] Results Component Value Date (more content not included)...[facility]12-02-2024 History of Present illness Narrative* Idania Ricketts, - 08/07/2024 8:04 PM ESTAssociated Problem(s): Type [...] decreasing snacking in the evening. * Idania Ricketts DO - 08/07/2024 1:45 PM EST Images [...] Seems to be running higher at night Mounjaro does not seem to be doing anything [...] Peripheral vascular disease (CMS/HCC) Insomnia Pure hypercholesterolemia (CMS/[facility]) Type 2 diabetes mellitus with foot ulcer ([facility]) 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 ([facility]) Vitamin D deficiency Type 2 diabetes mellitus with ESRD (end-stage renal disease) ([facility]) Type 2 diabetes mellitus with peripheral neuropathy ([facility]) 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, with long-term current use of insulin ([facility]) Long-term insulin use ([facility]) Class 3 severe obesity due to excess calories with serious comorbidity and body mass index (BMI) of40.0 to 44.9 in adult ([facility]) Hx of amputation of lesser toe, left ([facility]) ([facility]) Adenoma of left adrenal gland Chronic kidney disease with end stage renal disease on dialysis due to type 2 diabetes mellitus ([facility]) Erectile dysfunction Hypoglycemia due to type 2 diabetes mellitus ([facility]) Hypogonadism male Iron deficiency anemia Past history [...] Reaction(s): Unknown Other reaction(s): Unknown Haloperidol Anxiety [employer] Oil GI intolerance Runny nose, watery eyes [...] source. The 10-year ASCVD risk score (Matt DK, et al., 2019) is: 12.4% Values used [...] List Items Addressed This Visit Acquired hypothyroidism ([facility]) Anxiety Dependence on renal dialysis ([facility]) End stage renal disease ([facility]) Essential hypertension ([facility]) Obstructive sleep apnea syndrome - Primary Peripheral vascular disease ([facility]) Pure hypercholesterolemia ([facility]) 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 ([facility]) During the appointment today all pertinent labs, [...] diabetes mellitus with ESRD (end-stage renal disease) ([facility]) Type 2 diabetes mellitus with peripheral neuropathy ([facility]) 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, with long-term current use of insulin ([facility]) Long-term insulin use ([facility]) Class 3 severe obesity due to excess calories with serious comorbidity and body mass index (BMI) of40.0 to 44.9 in adult (CMS/[facility]) Hx of amputation of lesser toe, left (HCC) ([facility]) Chronic kidney disease with end stage renal disease on dialysis due to type 2 diabetes mellitus ([facility]) Other Visit Diagnoses Inguinal adenopathy Will be [...] 5,000 UNITS TABLET Daily. CONTINUOUS BLOOD GLUC CLUTCH SPECIALIST (DEXCOM G7 CLUTCH SPECIALIST) DEVICE 1 (one) time each day at the same time. CONTINUOUS BLOOD GLUC SENSOR (DEXCOM G7 SENSOR) [facility] as directed every 10 days for 90 [...] with the patient today. documented in this encounterSelect Specialty [id number] NoteLeft message to call office back and schedule with Dr Nguyen for enlarged lymph nodes per referralL[facility]11-21-2024 NotePatient: Evans Forte Procedure Information Date/Time: 07/27/24 0830 Procedures: Coronary angiography Right heart cath Location: [facility] RN 3 / [facility] (Cath) Providers: Pedro Alvarez MD [...] who consented to blood products. 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, he [...] is healing, minimal residual, no travel outside [place], he is an avid jack winder , no house plants, no known TB exposure, Past Medical History: Past Medical History: Diagnosis Date Adrenal nodule (CMS/HCC) left adrenal adenoma Anemia Anxiety Charcot foot due to diabetes mellitus (CMS/HCC) Right, s/p reconstructive surgery Chronic sinusitis COVID-19 08/2023 Diabetic foot ulcers (CMS/HCC) right Diabetic polyneuropathy (CMS/HCC) Diabetic retinopathy (CMS/HCC) ED (erectile dysfunction) ESRD (end stage renal disease) ([facility]) 11/23/2022 GERD (gastroesophageal reflux disease) Glaucoma History of tobacco use Hyperlipidemia Hypertension Hypogonadism in male Hypothyroidism Insomnia Neuropathy Obesity Osteomyelitis of ankle or foot, left, acute (CMS/HCC) Pancreatitis x2 Past history of chewing tobacco use Peripheral artery disease (CMS/HCC) Proteinuria Sleep apnea Type 2 diabetes mellitus ([facility]/HCC) Vitamin D deficiency Patient Active Problem List Diagnosis Adenoma of left adrenal gland History of pancreatitis Open wound of left foot Type 2 diabetes mellitus (CMS/HCC) Charcot's joint of foot Hypertension, essential Acquired hypothyroidism Hyperlipidemia Vitamin D deficiency Libido, decreased Erectile dysfunction Hypogonadism male Diabetic neuropathic arthropathy (CMS/HCC) Diabetic neuropathy (CMS/HCC) End stage renal disease ([facility]/HCC) Glaucoma Hypoglycemia due to type 2 diabetes mellitus ([facility]/HCC) Iron deficiency anemia 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, 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, 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 (CMS/[facility]) Microalbuminuria Mild left ventricular systolic dysfunction Morbid obesity ([facility]/HCC) Obstructive sleep apnea syndrome Osteomyelitis (CMS/HCC) Polyneuropathy due to type 2 diabetes mellitus (CMS/HCC) Ulcer of right foot with fat layer exposed (CMS/HCC) Pure hypercholesterolemia Disorder of adrenal gland (CMS/HCC) Type 2 diabetes mellitus with 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 edema, unspecified eye (CMS/HCC) Peripheral vascular disease (CMS/HCC) Adrenal nodule (CMS/HCC) Anxiety Insomnia Osteomyelitis of left foot (CMS/HCC) Diabetic retinopathy ([facility]/HCC) Past history of chewing tobacco use Mild nonproliferative diabetic retinopathy associated with type 2 diabetes mellitus (CMS/HCC) Diabetic foot ulcers ([facility]) Chronic sinusitis COVID-19 Anemia Pre-transplant evaluation for [...] drink of jessee (more content not included)... [facility]11-07-2024 NotePatient returned call to TC. Discussed with patient need for additional testing recommended from CT abdomen and pelvis performed 07/11/24. Informed patient evaluating surgeon would like patient to obtain PET CT. Patient states okay to place order at [facility]. Order placed and mailed to patient. Melinda Hidalgo RNUnWyandot Memorial Hospital11-05-2024 NoteI saw the patient in clinic. They [...] and patient financial responsibility forms they signed. [facility]11-05-2024 NoteCoordinator met with patient for re-evaluation appointment today in the Transplant clinic. Patient watched the transplant education video. Reviewed transplant process and consents with patient. Answered patient questions. Social work, finance and bat carrier in to see patient for review. Dr. Russell in for H&P and review of transplant plan. Dr. Moreland in for surgical evaluation. Coordinator provided copy of plan to patient and reviewed it with them. Patient aware further testing needed and to keep transplant team updated. Understanding verbalized by patient. Sent patient for labs, EKG & CXR today. Ion Exchange Operator provided patient TE folder with education on various transplant consents, the workup process, surgery details, postop expectations, transplant statistics, and living donor information. Answered patient questions and verified understanding. Melinda Hidalgo RNUnWyandot Memorial Hospital11-05-2024 NotePre- Transplant Evaluation Nephrology Consult Chief Complaint Patient presents with Kidney Eval PCP: Idania Ricketts DO Txp Referring: Ada Uriostegui Preferred Pharmacy: [id number] [place], [place] - [address] [facility] [address] [facility] [address] [facility] [address] [facility] [id number] Organ: Kidney Subjective Visit Vitals BP 134/69 [...] Other reaction(s): Unknown Adhesive Rash Haloperidol Anxiety [employer] Oil GI intolerance Runny nose, watery eyes Medication Documentation Review Audit Reviewed by Sita Danielson MA (Career Services Manager) on 07/11/24 at 0808 Medication Order Taking? Sig Documenting Provider Last Dose Status anastrozole (Arimidex) 1 mg chemo tablet [id number] Yes Take 1 tablet (1 mg total) by mouth in the morning Swallow whole with a drink of water. Adams Tate NP Taking Active aspirin 81 mg chewable tablet [id number] Yes Chew 1 tablet (81 mg) in the morning. Pedro Alvarez MD Taking Active atorvastatin (Lipitor) 20 mg tablet [id number] Yes Take 1 tablet every day by oral route. Historical Provider, Taking Active b complex 0.4 mg tablet [id number] Yes Take 1 tablet by mouth in the morning and at bedtime. Historical Provider, Taking Active calcitriol (Rocaltrol) 0.25 mcg capsule [id number] Yes Take 0.25 mcg by mouth in the morning. Historical ProviderMD Taking Active calcium acetate (Phoslo) 667 mg capsule [id number] Yes take 2 capsules by mouth with meals three times a day then take 1... (REFER TO PRESCRIPTION NOTES). Historical ProviderMD Taking Active carvedilol (Coreg) 12.5 mg tablet [id number] Yes Take 12.5 mg by mouth with breakfast and with evening meal. Historical ProviderMD Taking Active cholecalciferol (D3-5) 5,000 Units tablet [id number] Yes Take 1 tablet every day by oral route. Historical ProviderMD Taking Active furosemide (Lasix) 80 mg tablet [id number] Yes Take 80 mg by mouth two times daily. Historical ProviderMD Taking Active insulin glargine (Lantus) 100 unit/mL injection vial [id number] Yes Inject 60 Units under the skin in the morning. Historical MD Svitlana Taking Active insulin lispro (HUMALOG KWIKPEN INSULIN SUBQ) [id number] Yes Inject 10 Units under the skin with breakfast, with lunch, and with evening meal. Historical MD Svitlana Taking Active levothyroxine (Synthroid, Levoxyl) 100 mcg tablet [id number] Yes Take 1 tablet every day by oral route. Historical MD Svitlana Taking Active polyethylene glycol (GoLYTELY) 236-22.74-6.74 -5.86 gram solution [id number] For day 2 of 2 day prep Ermias Goodrich NP Active polyethylene glycol (GoLYTELY) 236-22.74-6.74 -5.86 gram solution [id number] No For day 1 of 2 day prep Patient not taking: Reported on 07/11/2024 Ermias Goodrich NP Not Taking Flag for Review tadalafil (Cialis) 20 mg tablet [id number] Take 1 tablet (20 mg) by mouth if needed each day for erectile dysfunction. Adams Tate NP 04/27/23 3143 testosterone 1.62 % (20.25 mg/1.25 gram) gel in packet [id number] Yes APPLY 1 PACKET DIRECTED ONCE DAILY [...] of left foot Type 2 diabetes mellitus ([facility]/HCC) Charcot's joint of foot Essential hypertension Acquired hypothyroidism Hyperlipidemia Vitamin D deficiency Libido, decreased Erectile dysfunction Hypogonadism male Diabetic neuropathic arthropathy ([facility]/HCC) Diabetic neuropathy ([facility]) End stage renal disease ([facility]) Glaucoma Hypoglycemia due to type 2 diabetes mellitus ([facility]) Iron deficiency anemia 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, 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, 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 ([facility]) Microalbuminuria Mild left ventricular systolic dysfunction Morbid obesity ([facility]) Obstructive sleep apnea syndrome Osteomyelitis ([facility]) Polyneuropathy due to type 2 diabetes mellitus ([facility]) Ulcer of right foot with fat layer exposed ([facility]) Pure hypercholesterolemia Disorder of adrenal gland ([facility]) Type 2 diabetes mellitus with 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 edema, unspecified eye ([facility]) Peripheral vascu (more content not included)...[facility]11-05-2024 NotePre-Transplant Kidney Evaluation Surgery Consultation PCP: DO Ross Dhillon Referring: Ada Uriostegui [id number] [address] Organ: Kidney Subjective Visit Vitals BP 134/69 [...] Other reaction(s): Unknown Adhesive Rash Haloperidol Anxiety [employer] Oil GI intolerance Runny nose, watery eyes Medication Documentation Review Audit Reviewed by Sita Danielson MA (Career Services Manager) on 07/11/24 at 0808 Medication Order Taking? Sig Documenting Provider Last Dose Status anastrozole (Arimidex) 1 mg chemo tablet [id number] Yes Take 1 tablet (1 mg total) by mouth in the morning Swallow whole with a drink of water. Adams Tate NP Taking Active aspirin 81 mg chewable tablet [id number] Yes Chew 1 tablet (81 mg) in the morning. Pedro Alvarez MD Taking Active atorvastatin (Lipitor) 20 mg tablet [id number] Yes Take 1 tablet every day by oral route. Zia Harden MD Taking Active b complex 0.4 mg tablet [id number] Yes Take 1 tablet by mouth in the morning and at bedtime. Zia Harden MD Taking Active calcitriol (Rocaltrol) 0.25 mcg capsule [id number] Yes Take 0.25 mcg by mouth in the morning. Zia Harden MD Taking Active calcium acetate (Phoslo) 667 mg capsule [id number] Yes take 2 capsules by mouth with meals three times a day then take 1... (REFER TO PRESCRIPTION NOTES). Zia Harden MD Taking Active carvedilol (Coreg) 12.5 mg tablet [id number] Yes Take 12.5 mg by mouth with breakfast and with evening meal. Zia Harden MD Taking Active cholecalciferol (D3-5) 5,000 Units tablet [id number] Yes Take 1 tablet every day by oral route. Zia Harden MD Taking Active furosemide (Lasix) 80 mg tablet [id number] Yes Take 80 mg by mouth two times daily. Zia Harden MD Taking Active insulin glargine (Lantus) 100 unit/mL injection vial [id number] Yes Inject 60 Units under the skin in the morning. Zia Harden MD Taking Active insulin lispro (HUMALOG KWIKPEN INSULIN SUBQ) [id number] Yes Inject 10 Units under the skin with breakfast, with lunch, and with evening meal. Zia Harden MD Taking Active levothyroxine (Synthroid, Levoxyl) 100 mcg tablet [id number] Yes Take 1 tablet every day by oral route. Zia Harden MD Taking Active polyethylene glycol (GoLYTELY) 236-22.74-6.74 -5.86 gram solution [id number] For day 2 of 2 day prep Ermias MARILU Goodrich Active polyethylene glycol (GoLYTELY) 236-22.74-6.74 -5.86 gram solution [id number] No For day 1 of 2 day prep Patient not taking: Reported on 07/11/2024 Ermias Goodrich NP Not Taking Flag for Review tadalafil (Cialis) 20 mg tablet [id number] Take 1 tablet (20 mg) by mouth if needed each day for erectile dysfunction. Adams Tate NP 04/27/23 235 testosterone 1.62 % (20.25 mg/1.25 gram) gel in packet [id number] Yes APPLY 1 PACKET DIRECTED ONCE DAILY [...] of left foot Type 2 diabetes mellitus ([facility]) Charcot's joint of foot Essential hypertension Acquired hypothyroidism Hyperlipidemia Vitamin D deficiency Libido, decreased Erectile dysfunction Hypogonadism male Diabetic neuropathic arthropathy ([facility]) Diabetic neuropathy ([facility]) End stage renal disease ([facility]) Glaucoma Hypoglycemia due to type 2 diabetes mellitus ([facility]) Iron deficiency anemia 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, 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, 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 ([facility]) Microalbuminuria Mild left ventricular systolic dysfunction Morbid obesity ([facility]) Obstructive sleep apnea syndrome Osteomyelitis ([facility]) Polyneuropathy due to type 2 diabetes mellitus ([facility]) Ulcer of right foot with fat layer exposed ([facility]) Pure hypercholesterolemia Disorder of adrenal gland ([facility]/HCC) Type 2 diabetes mellitus with 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 edema, unspecified eye (CMS/HCC) Peripheral vas (more content not included)...[facility] 07-11-2024 NoteTransplant Nutrition Assessment Name: Evans Forte [...] years, intentional with diet changes. Food Allergy: [employer] seeds Current diet: Renal diet. No supplements . High protein and vegetables. Nutrition/Diet: Most meals eaten at home. Diabetes Management: 60 units lantus and humalog 10units TID. Checks blood sugars often (has a dexcom). A1C 6.3% Diet Recall Breakfast: Skips on dialysis days or has eggs. Lunch: [place] or a salad. Dinner: Variety of meats, [...] follow his diet and stay physically active. RD reviewed diet changes to expect post transplant. Gerri Powell RDUnW[facility]andot [facility]11-05-2024 [id number] JannEvans aden 1970 M Date Provider Department Center 07/11/2024 REFUGIO CASTRO TXP None Family History Problem Relation Age of [...] Grandmother Daughter Father's Brother Alive Level of Service:52765 AL OFFICE/OUTPATIENT ESTABLISHED HIGH MDM 40 MIN Reason for Visit and Comments: Kidney Eval [[id number]][facility]11-05-2024 Note Identifying Information Name: Evans Forte : 1970 Assessment date: 07/11/2024 Transplant type: Kidney Transplant Evaluation - 10/12/2019 Primary language: Swiss Druze/spirituality: Anglican People present at assessment: sister Caryn Carroll Do you have any scientologist, ethical or personal objections to accepting blood products, surgery and/or transplant? No Citizenship Where were you born? In the [place] in [facility] Where do you currently live or are staying? [facility] Is this greater than 3-4 hours from [facility]? No. 1 Hour Family Background and Supportive Relationships Mother: COD: Breast Cancer with mets to brain. Father: COD: Heart attack Siblings: 1 sister: Caryn Becerra Children: Biological Number of children, living or (UNOS question): 1 Names, age, health status, relationship, address: Shankar Moore, healthy, King, daughter. Marital/relationship status: for 30 years Household composition: Patient, , step-grandaughter. Are there any current or past significant life changes or traumatic events? No Support / Caregiver Plans Who will be your primary caregiver? 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 Who will be your secondary caregiver(s)? 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 Date of last employment: April 2022 What are your thoughts about returning to work after transplant? Some form a of work. I have a [employer] drivers license. Disability Are you on any [...] Subscriber Name Rel Member # Group # [facility] - U* EVANS FORTE Self [id number] [address] [address] [facility] MED* EVANS [employer] Self [id number] [address] [address] Are you aware of a coordination of benefits with your insurance and Medicare (if applicable)? no- mailing Medicare and ESRD info to patient. Are you receiving assistance through [employer] [facility] [facility] JANICE Program: No Medication Coverage [...] 03/06/2023 Peritoneal [facility] Dialysis Center Information [facility]. Address: [address] [place] [address], [address] [facility] [address] [place]. Dialysis Schedule: MWF, 5:30AM, 4H15M, a few [...] HD diet, p (more content not included)... [facility]10-24-2024 History of Present illness Narrative* Gi Mondragon [...] boot for offloading/pressure reduction. Patient does have [facility] for dressing changes. Encouraged him to keep [...] 5. RTC: 2-3 weeks. documented in this encounterSelect Specialty [id number] NoteUT Cardiology - [facility] Subjective Evans Forte [...] cooperative. Judgment: Judgment normal. (more content not included)...[facility]10-15-2024 NotePatient: Evans Forte Procedure Summary Date: 06/20/24 Room / Location: [facility] Anesthesia Start: 1056 Anesthesia Stop: 1201 Procedure: [...] PACU per anesthesia protocol. No notable events documented.[facility]10-15-2024 Note Patient: Evans Fotre Procedure Information Date/Time: 06/20/24 1200 Scheduled providers: Anya Henley MD; Vinay Avila MD Procedure: SURVEILLANCE COLONOSCOPY Location: [facility] Relevant Problems Anesthesia (+) Obstructive sleep apnea syndrome Cardio (+) Essential hypertension Endo (+) Acquired hypothyroidism (+) Type 2 diabetes mellitus (CMS/HCC) /Renal (+) End stage renal disease (CMS/HCC) Other (+) Charcot's joint of foot (+) Osteomyelitis (CMS/HCC) (+) Osteomyelitis of left foot (CMS/HCC) Clinical information reviewed: Tobacco Allergies Meds Med [...] products. Plan discussed with resident. Additional Equipment [facility]Un[facility]10-08-2024 Note Medication resent to patients preferred pharmacy as requested.[facility]10-03-2024 History of Present illness Narrative* Gi Mondragon, PEEM - 06/08/2024 11:15 AM EDT Images from [...] 5. RTC: 2-3 weeks. documented in this encounterSelect Specialty [id number] Telephone encounter Note* Telephone Encounter - Gi Mondragon DPM - 05/31/2024 2:20 PM EDT Refill request was approved. Prescription was sent to his preferred pharmacy. [facility] Special[facility] [id number] Miscellaneous Notes* Telephone Encounter - Gi Mondragon DPM - 05/31/2024 2:20 PM EDT Refill request was approved. Prescription was sent to his preferred pharmacy. * Telephone Encounter - Sophia Martini MA - 05/30/2024 2:02 PM EDT Patient called and stated that he would like a refill of Pregabalin. Please advise, thank you. documented in this encounterSelect Specialty [id number] Telephone encounter Note* Telephone Encounter - Sophia Martini MA - 05/30/2024 2:02 PM EDT Patient called and stated that he would like a refill of Pregabalin. Please advise, thank you. [facility] Specialty [id number] NoteSubjective Patient ID: Evans Forte is a 54 y.o. male who presents for Follow-up (Lab results ). HPI 05.26.24 Pt here for office visit with his . Pt established with Dr Clay for hypogonadism, ED and pending Renal Transplant list. Pt is having wound care to right foot at this time. ESRD treated with Dialysis 3 x week locally in [place]. Pt labs reviewed: T Levels: 05/23/24 373 [...] Order fax to [facility]. 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 No CP or SOB. No N/V/D. No abd/flank pain. Pt continues with better level of fatigue. 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 Plan: Follow up Trimix Trial with Meds. 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 Urination: - amount of urine made: [...] - any previous fertility (more content not included)...[facility]09-12-2024 History of Present illness Narrative* Gi Mondragon, PEEM - 05/18/2024 10:00 AM EDT Images from [...] 5. RTC: 2 weeks. documented in this encounterSelect Specialty [id number] History of Present illness Narrative* Idania Ricketts DO - 05/16/2024 12:35 PM EDTAssociated Problem(s): Anxiety Discussed at length with pt and his . Will start lexapro. He is also going to start counseling.Ok to use ativan as needed as we are working on getting lexapro into his system. He is to call withany problems or not improving. * Idania Rikcetts DO - 05/16/2024 9:15 AM EDT Images from the original note were not included. Evans Forte is a 54 y.o. male presents with chief complaint of Anxiety HPI: [facility] Insurance will no longer cover Lyrica- wondering if he can be put back on gabapentin. Pt here for anxiety Went to [facility] ER last night d/t panic attack. Was prescribed Ativan Filled Ativan last night and took one dose last night. Pt states Ativan did help. [facility] will becontacting him to scheduled appt [...] Reaction(s): Unknown Other reaction(s): Unknown Haloperidol Anxiety [employer] Oil GI intolerance Runny nose, watery eyes [...] 5,000 UNITS TABLET Daily. CONTINUOUS BLOOD GLUC CLUTCH SPECIALIST (DEXCOM G7 CLUTCH SPECIALIST) DEVICE 1 (one) time each day [...] with the patient today. documented in this encounterSelect Specialty HospitalWjwneoujva89-07-1024 History of Present illness Narrative* Gi Mondragon, DPM - 05/04/2024 9:30 AM EDT Images [...] 5. RTC: 2 weeks. documented in this encounterSelect Specialty [id number] NotePatient LVM for TC asking inquiring about scheduling transplant re-evaluation and orders for updated stress test and colonoscopy. TC LVM for patient to discuss available dates and times and if he wants to complete the stress and colonoscopy here at [facility] or locally in [place]. Awaiting response.[facility]08-22-2024 Telephone encounter Note* Telephone Encounter - Melinda Dailey LPN - 04/27/2024 2:01 PM EDT Pt was on mounjaro 7.5 and it was unavailable and was switched to ozepmic 2mg. Pt states he is not losing weight and would like to go back to mounjaro. Okay to send in? [facility] Specialty [id number] Miscellaneous Notes* Telephone Encounter - Melinda Dailey [...] asking for Mounjaro 7.5mg documented in this encounterSelect Specialty [id number] Telephone encounter Note* Telephone Encounter - Anayeli Mack LPN - 04/26/2024 4:00 PM EDT LVM that insurance will no long pay for novolog and asking for alternative. Also asking for Mounjaro 7.5mg [facility] Specialty [id number] Progress note Author Gi Mondragon [facility] November 23, 2023 3:53pm Note Date/Time November 23, 2023 3:5 3pm [facility] [address] [place] [address] Podiatry Progress Note Signed Patient: Evans Forte MR#: [id number] : 1970 Acct:[id number] Age/Sex: 53 / M Adm Date: 4 Loc: Room: [address] [place] [address] Type: ADM IN Attending Dr: Amy Escudero DO Copies to: ~ Subjective Subjective Date of Service: Date of Service: 11/23/2023 Time of Service: 15:51 Narrative: Mr. oFrte is a 53 year old male who was admitted due to symptoms of sepsis. Patient has a large ulceration on the bottom of the right great toe and heel. 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 Patient states that the ulcerations [...] large hyperkeratosis. Patient will follow-up with his rapid transit operator and family for further wound care. Discussed [...] <Electronically signed by TIARA Mondragon> 11/23/[address] [facility] Work Phone: 1(274) 981-586203-19-2024 Consult note Author Gi Mondragon [facility] November 23, 2023 3:51pm Note Date/Time November 22, 2023 5:3 0pm [facility] [address] [place] [address] Podiatry Consult Note Signed Patient: Evans Forte MR#: [id number] : 1970 Acct:[id number] Age/Sex: 53 / M Adm Date: 4 Loc: Room: [address] [place] [address] Type: ADM IN Attending Dr: Amy Escudero DO Copies to: DO Gi Dhillon DPM Yazid Hussein, DO~ HPI Data of Consult Consult Date: 11/22/23 Requesting Physician: Amy Escudero DO Primary Care Provider: Idania Rciketts DO Consult Narrative Reason for consult: Right foot and heel ulceration History of present illness: Mr. Forte is a 53 year old male who was admitted due to symptoms of sepsis. Patient has a large ulceration on the bottom of the right great toe and heel. 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 Patient states that the ulcerations [...] negative unless noted below or in HPI [facility] Medical History (Updated 11/23/23 @ 10:16 by [...] End stage renal disease Cellulitis Hypertension Neuropathy lsim feet-tingling Diabetes mellitus, type 2 Surgical History History of cardiac catheterization [facility] History of orthopedic surgery right foot has [...] <Electronically signed by TIARA Mondragon> 11/23/[address] [facility] Work Phone: 1(127) 913-923103-19-2024 Progress note Author Amy Escudero [facility] November 24, 2023 1:40pm Note Date/Time November 23, 2023 1:0 3pm [facility] [address] [place] [address] Hospitalist Progress Note Signed Patient: Evans Forte MR#: [id number] : 1970 Acct:[id number] Age/Sex: 53 / M Adm Date: 4 Loc: 3T Room: [address] [place] [address] Type: DIS IN Attending Dr: Amy Escudero [...] Tablet PO 11/20/24 08:59 1 mg QAM REYNOLD Administration Atorvastatin Calcium 20 mg 11/21/23 09:00 11/22/23 08:13 Atorvastatin 20 Mg Tablet PO 11/20/24 08:59 20 mg QAM REYNOLD Administration Calcitriol 0.25 mcg 11/23/23 09:00 Calcitriol 0.25 Mcg Capsule PO 11/22/24 08:59 TuThSa@0900 REYNOLD Calcium Acetate 2,668 mg 11/21/23 07:30 11/23/23 08:52 Calcium Acetate 667 Mg Capsule PO 11/20/24 07:29 Not Given AC REYNOLD Carvedilol 6.25 mg 11/22/23 13:30 11/23/23 08:53 Carvedilol 6.25 Mg Tablet PO 11/21/24 13:29 Not Given BID REYNOLD Cyanocobalamin 1,000 mcg 11/21/23 09:00 11/22/23 08:13 Cyanocobalamin 1,000 Mcg Tablet PO 11/20/24 08:59 1,000 mcg DAILY REYNOLD Administration Darbepoetin Zechariah 25 mcg 11/23/23 09:30 11/23/23 11:47 Darbepoetin Zechariah In Polysorbat 25 Mcg/Ml Vial IV-PUSH 11/22/24 09:29 25 mcg Tu@0930 [facility] Administration Protocol Furosemide 80 mg 11/22/23 16:00 11/23/23 08:52 Furosemide 80 Mg Tablet PO 11/21/24 15:59 Not Given BID@0800,1600 [facility] Heparin Sodium (Porcine) 5,000 unit 11/21/23 09:00 11/23/23 08:53 Heparin 5,000 Unit/Ml Vial SUBCUT 11/20/24 08:59 Not Given Q12HR [facility] Heparin Sodium (Porcine) 2,000 unit 11/23/23 09:20 [...] 11/22/23 21:02 Zyvox IV 300 mls/hr Q12H REYNOLD Administration Ceftriaxone Sodium 2 gm in 50 mls @ 100 mls/hr 11/21/23 20:00 11/22/23 19:25 Rocephin IV 100 mls/hr Q24H RE[facility]OLD Administration Sodium Chloride 1,000 mls @ 0 mls/hr 11/23/23 09:20 11/23/23 11:45 0.9% Sodium Chloride 1,000 Ml MISCELLANE 11/22/24 09:19 999 mls/hr .Q0M PRN Administration Dialysis As Directed Insulin Aspart 0 units 11/21/23 16:30 11/23/23 08:52 Insulin Aspart 300 Units/3 Ml Insuln.Pen SUBCUT 11/20/24 16:29 Not Given ACHS [facility] Protocol Insulin Human Regular 50 unit 11/21/23 09:00 11/23/23 08:53 Insulin Regular U-500, Human 1,500 Unit/3 Ml Insuln.Pen SUBCUT 11/20/24 08:59 Not Given BID [facility] Levothyroxine Sodium 100 mcg 11/21/23 06:30 11/23/23 05:38 Levothyroxine 100 Mcg Tablet PO 11/20/24 06:29 100 mcg DAILY.0630 REYNOLD Administration Melatonin 5 mg 11/20/23 21:03 Melatonin 5 Mg Tablet PO 11/19/24 21:02 QHS PRN Insomnia Morphine Sulfate 2 mg 11/20/23 21:03 11/21/23 19:41 Morphine Sulfate 2 Mg/Ml Vial IV-PUSH 2 mg Q4H PRN Administration Pain Scale 8 - 10 Testosterone 1 % (50 1 packet 11/21/23 09:00 11/23/23 08:53 Mg/5 Gram) Gel In TRANSDERML 11/20/24 08:59 Not Given Packet DAILY [facility] Tirzepatide [ 5 mg 11/30/23 09:00 Mounjaro] 5 Mg/0.5 SUBCUT 11/29/24 08:59 Ml Pen Injector Tu@0900 [facility] Ondansetron HCl 4 mg 11/20/23 21:03 Ondansetron 4 Mg/2 Ml Vial IV-PUSH 11/19/24 21:02 Q8H PRN Nausea And Vomiting Pregabalin 50 mg 11/23/23 09:00 Pregabalin 50 Mg Capsule PO 05/21/24 08:59 DAILY RE[facility]OLD Sodium Chloride 0 ml 11/20/23 18:44 11/23/23 [...] signed by Amy Escudero DO> 11/24/[address] [facility] Work Phone: 1(811) 435-316803-19-2024 Progress note Author Ada Uriostegui [facility] November 23, 2023 12:09pm Note Date/Time November 23, 2023 10: 34am [facility] [address] [place] [address] Nephrology Progress Note Signed Patient: Evans Forte MR#: [id number] : 1970 Acct:[id number] Age/Sex: 53 / M Adm Date: 4 Loc: Room: [address] [place] [address] Type: ADM IN Attending Dr: Amy Escudero DO Copies to: ~ Date of Service: 11/23/2023 Subjective Subjective Narrative: This is a 53-year-old male patient with a past medical history of hypertension, hyperlipidemia, end-stage renal disease on TTS hemodialysis schedule at [facility], insulin-dependent diabetes mellitus, obstructive sleep apnea, right [...] Skin: No rashes , warm to touch 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: Awake,Alert, following simple command Musculoskeletal: No joint [...] (Anastrozole 1 Mg Tablet) 1 mg PO [facility] Stop: 11/20/24 08:59 Last Admin: 11/22/23 08:14 Dose: 1 mg Atorvastatin Calcium (Atorvastatin 20 Mg Tablet) 20 mg PO [facility] Stop: 11/20/24 08:59 Last Admin: 11/22/23 08:13 Dose: 20 mg Calcitriol (Calcitriol 0.25 Mcg Capsule) 0.25 mcg [facility] Stop: 11/22/24 08:59 Calcium Acetate (Calcium Acetate 667 Mg Capsule) 2,668 mg PO AC [facility] Stop: 11/20/24 07:29 Last Admin: 11/23/23 08:52 Dose: Not Given Carvedilol (Carvedilol 6.25 Mg Tablet) 6.25 mg PO BID [facility] Stop: 11/21/24 13:29 Last Admin: 11/23/23 08:53 Dose: Not Given Cyanocobalamin (Cyanocobalamin 1,000 Mcg Tablet) 1,000 mcg PO DAILY [facility] Stop: 11/20/24 08:59 Last Admin: 11/22/23 08:13 Dose: 1,000 mcg Darbepoetin Zechariah (Darbepoetin Zechariah In Polysorbat 25 Mcg/Ml Vial) 25 mcg IV-PUSHTu@0930 [facility]; Protocol Stop: 11/22/24 09:29 Furosemide (Furosemide 80 Mg Tablet) 80 mg PO BID@0800,1600 [facility] Stop: 11/21/24 15:59 Last Admin: 11/23/23 08:52 Dose: Not Given Heparin Sodium (Porcine) (Heparin 5,000 Unit/Ml Vial) 5,000 unit SUBCUT Q12HR [facility] Stop: 11/20/24 08:59 Last Admin: 11/23/23 08:53 [...] @ 300 mls/hr IV Q12H [facility] Last Admin: 11/22/23 21:02 Dose: 300 mls/hr Ceftriaxone Sodium (Rocephin) 2 gm in 50 mls @ 100 mls/hr IV Q24H [facility] Last Admin: 11/22/23 19:25 Dose: 100 mls/hr Sodium Chloride (0.9% Sodium Chloride 1,000 Ml) 1,000 mls @ 0 mls/hr MISCELLANE.Q0M PRN PRN Reason: Dialysis Stop: 11/22/24 09:19 Last Infusion: 11/23/23 09:43 Dose: Infused Insulin Aspart (Insulin Aspart 300 Units/3 Ml Insuln.Pen) 0 units SUBCUT ACHS [facility]; Protocol Stop: 11/20/24 16:29 Last Admin: 11/23/23 08:52 Dose: Not Given Insulin Human Regular (Insulin Regular U-500, Human 1,500 Unit/3 Ml Insuln.Pen) 50 unit SUBCUT BID [facility] Stop: 11/20/24 08:59 Last Admin: 11/23/23 08:53 Dose: Not Given Levothyroxine Sodium (Levothyroxine 100 Mcg Tablet) 100 mcg PO DAILY.629 [facility] Stop: 11/20/24 06:29 Last Admin: 11/23/23 05:38 [...] Packet 1 packet TRANSDERML DAILY [facility] Stop: 11/20/24 08:59 Last Admin: 11/23/23 08:53 Dose: Not Given Tirzepatide [ Mounjaro] 5 Mg/0.5 Ml Pen Injector 5 mg SUBCUT Tu@0900 [facility] Stop: 11/29/24 08:59 Ondansetron HCl (Ondansetron 4 Mg/2 Ml Vial) 4 mg IV-PUSH Q8H PRN PRN Reason: Nausea And Vomiting Stop: 11/19/24 21:02 Pregabalin (Pregabalin 50 Mg Capsule) 50 mg PO DAILY [facility] Stop: 05/21/24 08:59 Sodium Chloride (Sodium Chloride [...] diabetic nephropathy. Patient has been going to [facility] on TTS for hemodialysis. Last hemodialysis session [...] <Electronically signed by Ada Uriostegui MD> 11/23/[address] [facility] Work Phone: 1(830) 586-645403-19-2024 Progress note Author Chintan Hernández [facility] November 23, 2023 10:54am Note Date/Time November 23, 2023 10: 54am [facility] [address] [place] [address] Infect. Disease Progress Note Signed Patient: Evans Forte MR#: [id number] : 1970 Acct:[id number] Age/Sex: 53 / M Adm Date: 4 Loc: Room: [address] [place] [address] Type: ADM IN Attending Dr: Amy Escudero [...] Tablet) 1 mg PO QAM [facility] Stop: 11/20/24 08:59 Last Admin: 11/22/23 08:14 Dose: 1 mg Atorvastatin Calcium (Atorvastatin 20 Mg Tablet) 20 mg PO QAM [facility] Stop: 11/20/24 08:59 Last Admin: 11/22/23 08:13 Dose: 20 mg Calcitriol (Calcitriol 0.25 Mcg Capsule) 0.25 mcg PO TuThSa@0900 [facility] Stop: 11/22/24 08:59 Calcium Acetate (Calcium Acetate 667 Mg Capsule) 2,668 mg PO AC [facility] Stop: 11/20/24 07:29 Last Admin: 11/23/23 08:52 Dose: Not Given Carvedilol (Carvedilol 6.25 Mg Tablet) 6.25 mg PO BID [facility] Stop: 11/21/24 13:29 Last Admin: 11/23/23 08:53 Dose: Not Given Cyanocobalamin (Cyanocobalamin 1,000 Mcg Tablet) 1,000 mcg PO DAILY [facility] Stop: 11/20/24 08:59 Last Admin: 11/22/23 08:13 Dose: 1,000 mcg Darbepoetin Zechariah (Darbepoetin Zechariah In Polysorbat 25 Mcg/Ml Vial) 25 mcg IV-PUSHTu@0930 [facility]; Protocol Stop: 11/22/24 09:29 Furosemide (Furosemide 80 Mg Tablet) 80 mg PO BID@0800,1600 [facility] Stop: 11/21/24 15:59 Last Admin: 11/23/23 08:52 Dose: Not Given Heparin Sodium (Porcine) (Heparin 5,000 Unit/Ml Vial) 5,000 unit SUBCUT Q12HR [facility] Stop: 11/20/24 08:59 Last Admin: 11/23/23 08:53 [...] @ 300 mls/hr IV Q12H [facility] Last Admin: 11/22/23 21:02 Dose: 300 mls/hr Ceftriaxone Sodium (Rocephin) 2 gm in 50 mls @ 100 mls/hr IV Q24H [facility] Last Admin: 11/22/23 19:25 Dose: 100 mls/hr Sodium Chloride (0.9% Sodium Chloride 1,000 Ml) 1,000 mls @ 0 mls/hr MISCELLANE.Q0M PRN PRN Reason: Dialysis Stop: 11/22/24 09:19 Last Infusion: 11/23/23 09:43 Dose: Infused Insulin Aspart (Insulin Aspart 300 Units/3 Ml Insuln.Pen) 0 units SUBCUT ACHS [facility]; Protocol Stop: 11/20/24 16:29 Last Admin: 11/23/23 08:52 Dose: Not Given Insulin Human Regular (Insulin Regular U-500, Human 1,500 Unit/3 Ml Insuln.Pen) 50 unit SUBCUT BID [facility] Stop: 11/20/24 08:59 Last Admin: 11/23/23 08:53 Dose: Not Given Levothyroxine Sodium (Levothyroxine 100 Mcg Tablet) 100 mcg PO DAILY.0630 [facility] Stop: 11/20/24 06:29 Last Admin: 11/23/23 05:38 [...] Packet 1 packet TRANSDERML DAILY [facility] Stop: 11/20/24 08:59 Last Admin: 11/23/23 08:53 Dose: Not Given Tirzepatide [ Mounjaro] 5 Mg/0.5 Ml Pen Injector 5 mg SUBCUT Tu@0900 [facility] Stop: 11/29/24 08:59 Ondansetron HCl (Ondansetron 4 Mg/2 Ml Vial) 4 mg IV-PUSH Q8H PRN PRN Reason: Nausea And Vomiting Stop: 11/19/24 21:02 Pregabalin (Pregabalin 50 Mg Capsule) 50 mg PO DAILY [facility] Stop: 05/21/24 08:59 Sodium Chloride (Sodium Chloride [...] planning. Documented By: Chintan Hernández MD 11/23/23 105 Signed By: <Electronically signed by MD Chintan Hernández> 11/23/[address] [facility] Work Phone: 1(595) 732-355403-18-2024 Progress note Author Ada Uriostegui [facility] November 22, 2023 12:53pm Note Date/Time November 22, 2023 12: 53pm [facility] [address] [place] [address] Nephrology Progress Note Signed Patient: Evans Forte MR#: [id number] : 1970 Acct:[id number] Age/Sex: 53 / M Adm Date: 4 Loc: Room: [address] [place] [address] Type: ADM IN Attending Dr: Amy Escudero DO Copies to: ~ Date of Service: 11/22/2023 Subjective Subjective Narrative: This is a 53-year-old male patient with a past medical history of hypertension, hyperlipidemia, end-stage renal disease on TTS hemodialysis schedule at [facility], insulin-dependent diabetes mellitus, obstructive sleep apnea, right [...] Skin: No rashes , warm to touch 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: Awake,Alert, following simple command Musculoskeletal: No joint [...] (Anastrozole 1 Mg Tablet) [facility] Stop: 11/20/24 08:59 Last Admin: 11/22/23 08:14 Dose: 1 mg Atorvastatin Calcium (Atorvastatin 20 Mg Tablet) 20 mg PO QAM [facility] Stop: 11/20/24 08:59 Last Admin: 11/22/23 08:13 Dose: 20 mg Calcitriol (Calcitriol 0.25 Mcg Capsule) 0.25 mcg PO TuThSa@0900 [facility] Stop: 11/22/24 08:59 Calcium Acetate (Calcium Acetate 667 Mg Capsule) 2,668 mg PO AC [facility] Stop: 11/20/24 07:29 Last Admin: 11/22/23 11:21 Dose: 2,668 mg Carvedilol (Carvedilol 6.25 Mg Tablet) 6.25 mg PO BID [facility] Stop: 11/21/24 12:19 Cyanocobalamin (Cyanocobalamin 1,000 Mcg Tablet) 1,000 mcg PO DAILY [facility] Stop: 11/20/24 08:59 Last Admin: 11/22/23 08:13 Dose: 1,000 mcg Heparin Sodium (Porcine) (Heparin 5,000 Unit/Ml Vial) 5,000 unit SUBCUT Q12HR [facility] Stop: 11/20/24 08:59 Last Admin: 11/22/23 08:14 Dose: 5,000 unit Linezolid (Zyvox) 600 mg in 300 mls @ 300 mls/hr IV Q12H [facility] Last Admin: 11/22/23 08:58 Dose: 300 mls/hr Ceftriaxone Sodium (Rocephin) 2 gm in 50 mls @ 100 mls/hr IV Q24H [facility] Last Admin: 11/21/23 19:41 Dose: 100 mls/hr Insulin Aspart (Insulin Aspart 300 Units/3 Ml Insuln.Pen) 0 units SUBCUT ACHS [facility]; Protocol Stop: 11/20/24 16:29 Last Admin: 11/22/23 11:22 Dose: 2 units Insulin Human Regular (Insulin Regular U-500, Human 1,500 Unit/3 Ml Insuln.Pen) 50 unit SUBCUT BID [facility] Stop: 11/20/24 08:59 Last Admin: 11/22/23 08:16 Dose: 50 unit Levothyroxine Sodium (Levothyroxine 100 Mcg Tablet) 100 mcg PO DAILY.0630 [facility] Stop: 11/20/24 06:29 Last Admin: 11/22/23 05:29 [...] Packet 1 packet TRANSDERML DAILY [facility] Stop: 11/20/24 08:59 Last Admin: 11/22/23 11:21 Dose: Not Given Tirzepatide [ Mounjaro] 5 Mg/0.5 Ml Pen Injector 5 mg SUBCUT Tu@0900 [facility] Stop: 11/29/24 08:59 Ondansetron HCl (Ondansetron 4 Mg/2 Ml Vial) 4 mg IV-PUSH Q8H PRN PRN Reason: Nausea And Vomiting Stop: 11/19/24 21:02 Pregabalin (Pregabalin 150 Mg Capsule) 150 mg PO BID [facility] Stop: 05/19/24 08:59 Last Admin: 11/22/23 08:14 [...] Taqueria Reese M.D.11/21/2023 4:39 PM Dictation Location: [facility] 11/22/23 07:00 IMPRESSION: NO HEMODYNAMICALLY SIGNIFICANT PERIPHERAL VASCULAR OCCLUSIVE DISEASE AT REST IN EITHER LOWER EXTREMITY. Impression dictated by: Ramirez Jean M.D.11/22/2023 10:09 AM Dictation Location: [place] [address] Any impression(s) listed above is documentation that [...] diabetic nephropathy. Patient has been going to [facility] on TTS for hemodialysis. Last hemodialysis session [...] <Electronically signed by Ada Uriostegui MD> 11/22/[address] [facility] Work Phone: [phone] 559-449703-18-2024 Progress note Author Amy Escudero [facility] November 22, 2023 12:45pm Note Date/Time November 22, 2023 10: 37am [facility] [address] [place] [address] Hospitalist Progress Note Signed Patient: Evans Forte MR#: [id number] : 1970 Acct:[id number] Age/Sex: 53 / M Adm Date: 4 Loc: Room: [address] [place] [address] Type: ADM IN Attending Dr: Amy Escudero [...] Dose Route Start Last Admin Trade Name Joseq PRN Reason Stop Dose Admin Acetaminophen 650 mg 11/20/23 21:03 Acetaminophen 325 Mg Tablet PO 11/19/24 21:02 Q6HR PRN Pain Scale 1 - 3 or fever Anastrozole 1 mg 11/21/23 09:00 11/22/23 08:14 Anastrozole 1 Mg Tablet PO 11/20/24 08:59 1 mg QAM [facility] Administration Atorvastatin Calcium 20 mg 11/21/23 09:00 11/22/23 08:13 Atorvastatin 20 Mg Tablet PO 11/20/24 08:59 20 mg QAM [facility] Administration Calcitriol 0.25 mcg 11/23/23 09:00 Calcitriol 0.25 Mcg Capsule PO 11/22/24 08:59 TuThSa@0900 [facility] Calcium Acetate 2,668 mg 11/21/23 07:30 11/22/23 08:13 Calcium Acetate 667 Mg Capsule PO 11/20/24 07:29 2,668 mg AC [facility] Administration Cyanocobalamin 1,000 mcg 11/21/23 09:00 11/22/23 08:13 Cyanocobalamin 1,000 Mcg Tablet PO 11/20/24 08:59 1,000 mcg DAILY [facility] Administration Heparin Sodium (Porcine) 5,000 unit 11/21/23 09:00 11/22/23 08:14 Heparin 5,000 Unit/Ml Vial SUBCUT 11/20/24 08:59 5,000 unit Q12HR [facility] Administration Linezolid 600 mg in 300 mls @ 300 mls/hr 11/21/23 09:30 11/22/23 08:58 Zyvox IV 300 mls/hr Q12H [facility] Administration Ceftriaxone Sodium 2 gm in 50 mls @ 100 mls/hr 11/21/23 20:00 11/21/23 19:41 Rocephin IV 100 mls/hr Q24H [facility] Administration Insulin Aspart 0 units 11/21/23 16:30 11/22/23 08:13 Insulin Aspart 300 Units/3 Ml Insuln.Pen SUBCUT 11/20/24 16:29 Not Given ACHS [facility] Protocol Insulin Human Regular 50 unit 11/21/23 09:00 11/22/23 08:16 Insulin Regular U-500, Human 1,500 Unit/3 Ml Insuln.Pen SUBCUT 11/20/24 08:59 50 unit BID [facility] Administration Levothyroxine Sodium 100 mcg 11/21/23 06:30 11/22/23 05:29 Levothyroxine 100 Mcg Tablet PO 11/20/24 06:29 100 mcg DAILY.0630 [facility] Administration Melatonin 5 mg 11/20/23 21:03 Melatonin 5 Mg Tablet PO 11/19/24 21:02 QHS PRN Insomnia Morphine Sulfate 2 mg 11/20/23 21:03 11/21/23 19:41 Morphine Sulfate 2 Mg/Ml Vial IV-PUSH 2 mg Q4H PRN Administration Pain Scale 8 - 10 Testosterone 1 % (50 1 packet 11/21/23 09:00 11/21/23 10:14 Mg/5 Gram) Gel In TRANSDERML 11/20/24 08:59 Not Given Packet DAILY [facility] Tirzepatide [ 5 mg 11/30/23 09:00 Mounjaro] 5 Mg/0.5 SUBCUT 11/29/24 08:59 Ml Pen Injector Tu@0900 [facility] Ondansetron HCl 4 mg 11/20/23 21:03 Ondansetron 4 Mg/2 Ml Vial IV-PUSH 11/19/24 21:02 Q8H PRN Nausea And Vomiting Pregabalin 150 mg 11/21/23 09:00 11/22/23 08:14 Pregabalin 150 Mg Capsule PO 05/19/24 08:59 150 mg BID [facility] Administration Sodium Chloride 0 ml 11/20/23 18:44 11/21/23 11:14 Sodium Chloride 0.9 % 10 Ml Syringe IV-PUSH 11/19/24 18:43 10 ml PRN PRN Administration Flush Tramadol HCl 50 mg 11/21/23 15:21 Tramadol 50 Mg Tablet PO 05/19/24 15:16 Q12H PRN Pain Trazodone HCl 50 mg 11/20/23 22:32 11/21/23 21:19 Trazodone 50 Mg Tablet PO 03/16/25 22:31 50 mg QHS PRN Administration insomnia [...] consult dependent on results ESRD on hemodialysis // Anemia of CKD [...] signed by Amy Escudero DO> 11/22/[address] [facility] Work Phone: [phone] Consult note Author Chintan Hernández [facility] November 22, 2023 11:26am Note Date/Time November 22, 2023 11: 26am [facility] [address] [place] [address] Infect. Disease Consult Note Signed Patient: Evans Forte MR#: [id number] : 1970 Acct:[id number] Age/Sex: 53 / M Adm Date: 4 Loc: Room: [address] [place] [address] Type: ADM IN Attending Dr: Amy Escudero [...] negative unless noted below or in HPI [facility] Medical History (Updated 11/22/23 @ 11:24 by [...] 2 Surgical History History of cardiac catheterization [facility] History of orthopedic surgery right foot has [...] (Anastrozole 1 Mg Tablet) [facility] Stop: 11/20/24 08:59 Last Admin: 11/22/23 08:14 Dose: 1 mg Atorvastatin Calcium (Atorvastatin 20 Mg Tablet) 20 mg PO QAM [facility] Stop: 11/20/24 08:59 Last Admin: 11/22/23 08:13 Dose: 20 mg Calcitriol (Calcitriol 0.25 Mcg Capsule) 0.25 mcg PO TuThSa@0900 [facility] Stop: 11/22/24 08:59 Calcium Acetate (Calcium Acetate 667 Mg Capsule) 2,668 mg PO AC [facility] Stop: 11/20/24 07:29 Last Admin: 11/22/23 08:13 Dose: 2,668 mg Cyanocobalamin (Cyanocobalamin 1,000 Mcg Tablet) 1,000 mcg PO DAILY [facility] Stop: 11/20/24 08:59 Last Admin: 11/22/23 08:13 Dose: 1,000 mcg Heparin Sodium (Porcine) (Heparin 5,000 Unit/Ml Vial) 5,000 unit SUBCUT Q12HR [facility] Stop: 11/20/24 08:59 Last Admin: 11/22/23 08:14 Dose: 5,000 unit Linezolid (Zyvox) 600 mg in 300 mls @ 300 mls/hr IV Q12H [facility] Last Admin: 11/22/23 08:58 Dose: 300 mls/hr Ceftriaxone Sodium (Rocephin) 2 gm in 50 mls @ 100 mls/hr IV Q24H [facility] Last Admin: 11/21/23 19:41 Dose: 100 mls/hr Insulin Aspart (Insulin Aspart 300 Units/3 Ml Insuln.Pen) 0 units SUBCUT ACHS [facility]; Protocol Stop: 11/20/24 16:29 Last Admin: 11/22/23 08:13 Dose: Not Given Insulin Human Regular (Insulin Regular U-500, Human 1,500 Unit/3 Ml Insuln.Pen) 50 unit SUBCUT BID [facility] Stop: 11/20/24 08:59 Last Admin: 11/22/23 08:16 Dose: 50 unit Levothyroxine Sodium (Levothyroxine 100 Mcg Tablet) 100 mcg PO DAILY.0630 [facility] Stop: 11/20/24 06:29 Last Admin: 11/22/23 05:29 [...] Packet 1 packet TRANSDERML DAILY [facility] Stop: 11/20/24 08:59 Last Admin: 11/21/23 10:14 Dose: Not Given Tirzepatide [ Mounjaro] 5 Mg/0.5 Ml Pen Injector 5 mg SUBCUT Tu@0900 [facility] Stop: 11/29/24 08:59 Ondansetron HCl (Ondansetron 4 Mg/2 Ml Vial) 4 mg IV-PUSH Q8H PRN PRN Reason: Nausea And Vomiting Stop: 11/19/24 21:02 Pregabalin (Pregabalin 150 Mg Capsule) 150 mg PO BID [facility] Stop: 05/19/24 08:59 Last Admin: 11/22/23 08:14 [...] 600 ml @ 300 mls/hr IV Q12H [facility] Rx# :[id number] Output: Urine 100 / 100 Other: # [...] to continue. Documented By: Chintan Hernández MD 11/22/231116 Signed By: <Electronically signed by MD Chintan Hernández> 11/22/[address] [facility] Work Phone: [phone] Progress note Author Arnol Calloway [facility] November 21, 2023 5:52pm Note Date/Time November 21, 2023 11: 07am [facility] [address] [place] [address] Hospitalist Progress Note Signed Patient: Evans Forte MR#: [id number] : 1970 Acct:[id number] Age/Sex: 53 / M Adm Date: 4 Loc: 3T Room: [address] [place] [address] Type: ADM IN Attending Dr: Arnol Calloway [...] as neuropathy. Follows with Dr. Fonseca/podiatry in [place] but indicates has not had vascular studies [...] Tablet PO 11/20/24 08:59 1 mg QAM [facility] Administration Atorvastatin Calcium 20 mg 11/21/23 09:00 11/21/23 08:00 Atorvastatin 20 Mg Tablet PO 11/20/24 08:59 20 mg QAM [facility] Administration Calcitriol 0.25 mcg 11/23/23 09:00 Calcitriol 0.25 Mcg Capsule PO 11/22/24 08:59 TuThSa@0900 [facility] Calcium Acetate 2,668 mg 11/21/23 07:30 11/21/23 07:54 Calcium Acetate 667 Mg Capsule PO 11/20/24 07:29 2,668 mg AC [facility] Administration Cyanocobalamin 1,000 mcg 11/21/23 09:00 11/21/23 08:00 Cyanocobalamin 1,000 Mcg Tablet PO 11/20/24 08:59 1,000 mcg DAILY [facility] Administration Heparin Sodium (Porcine) 5,000 unit 11/21/23 09:00 11/21/23 08:00 Heparin 5,000 Unit/Ml Vial SUBCUT 11/20/24 08:59 5,000 unit Q12HR [facility] Administration Linezolid 600 mg in 300 mls @ 300 mls/hr 11/21/23 09:30 11/21/23 09:06 Zyvox IV 300 mls/hr Q12H [facility] Administration Ceftriaxone Sodium 2 gm in 50 mls @ 100 mls/hr 11/21/23 20:00 Rocephin IV Q24H [facility] Insulin Human Regular 50 unit 11/21/23 09:00 11/21/23 08:00 Insulin Regular U-500, Human 1,500 Unit/3 Ml Insuln.Pen SUBCUT 11/20/24 08:59 50 unit BID [facility] Administration Levothyroxine Sodium 100 mcg 11/21/23 06:30 11/21/23 05:39 Levothyroxine 100 Mcg Tablet PO 11/20/24 06:29 100 mcg DAILY.0630 [facility] Administration Melatonin 5 mg 11/20/23 21:03 Melatonin 5 Mg Tablet PO 11/19/24 21:02 QHS PRN Insomnia Morphine Sulfate 2 mg 11/20/23 21:03 11/21/23 00:25 Morphine Sulfate 2 Mg/Ml Vial IV-PUSH 2 mg Q4H PRN Administration Pain Scale 8 - 10 Testosterone 1 % (50 1 packet 11/21/23 09:00 11/21/23 10:14 Mg/5 Gram) Gel In TRANSDERML 11/20/24 08:59 Not Given Packet DAILY [facility] Tirzepatide [ 5 mg 11/30/23 09:00 Mounjaro] 5 Mg/0.5 SUBCUT 11/29/24 08:59 Ml Pen Injector Tu@0900 [facility] Ondansetron HCl 4 mg 11/20/23 21:03 Ondansetron 4 Mg/2 Ml Vial IV-PUSH 11/19/24 21:02 Q8H PRN Nausea And Vomiting Pregabalin 150 mg 11/21/23 09:00 11/21/23 08:00 Pregabalin 150 Mg Capsule PO 05/19/24 08:59 150 mg BID [facility] Administration Sodium Chloride 0 ml 11/20/23 18:44 [...] <Electronically signed by Arnol Calloway MD> 11/21/23 [address] [facility] Work Phone: [phone]) 816-284503-17-2024 Consult note Author Yocasta Villalba [facility] November 21, 2023 10:16am Note Date/Time November 21, 2023 10: 16am [facility] [address] [place] [address] Nephrology Consult Note Signed Patient: Evans Forte MR#: [id number] : 1970 Acct:[id number] Age/Sex: 53 / M Adm Date: 4 Loc: Room: [address] [place] [address] Type: ADM IN Attending Dr: Arnol Calloway MD Copies to: Idania PetDO Yocasta louie MD Frederick E Doamekpor, MD~ Providers Consult Date: 11/21/23 Requesting Provider: Arnol Calloway MD Primary Care Provider: Idania Ricketts DO HPI Reason for Consult: End-stage renal disease care History of Present Illness: This is a 53-year-old male patient with a past medical history of hypertension, hyperlipidemia, end-stage renal disease on TTS hemodialysis schedule at [facility], insulin-dependent diabetes mellitus, obstructive sleep apnea, right [...] systems: 12 system review is negative today [facility] Medical History (Updated 11/21/23 @ 10:12 by [...] 2 Surgical History History of cardiac catheterization [facility] History of orthopedic surgery right foot has [...] Tablet) 1 mg PO QAM [facility] Stop: 11/20/24 08:59 Last Admin: 11/21/23 08:00 Dose: 1 mg Atorvastatin Calcium (Atorvastatin 20 Mg Tablet) 20 mg PO QAM [facility] Stop: 11/20/24 08:59 Last Admin: 11/21/23 08:00 Dose: 20 mg Calcitriol (Calcitriol 0.25 Mcg Capsule) 0.25 mcg PO TuThSa@0900 [facility] Stop: 11/22/24 08:59 Calcium Acetate (Calcium Acetate 667 Mg Capsule) 2,668 mg PO AC [facility] Stop: 11/20/24 07:29 Last Admin: 11/21/23 07:54 Dose: 2,668 mg Cyanocobalamin (Cyanocobalamin 1,000 Mcg Tablet) 1,000 mcg PO DAILY [facility] Stop: 11/20/24 08:59 Last Admin: 11/21/23 08:00 Dose: 1,000 mcg Heparin Sodium (Porcine) (Heparin 5,000 Unit/Ml Vial) 5,000 unit SUBCUT Q12HR [facility] Stop: 11/20/24 08:59 Last Admin: 11/21/23 08:00 Dose: 5,000 unit Linezolid (Zyvox) 600 mg in 300 mls @ 300 mls/hr IV Q12H [facility] Last Admin: 11/21/23 09:06 Dose: 300 mls/hr Ceftriaxone Sodium (Rocephin) 2 gm in 50 mls @ 100 mls/hr IV Q24H [facility] Insulin Human Regular (Insulin Regular U-500, Human 1,500 Unit/3 Ml Insuln.Pen) 50 unit SUBCUT BID [facility] Stop: 11/20/24 08:59 Last Admin: 11/21/23 08:00 Dose: 50 unit Levothyroxine Sodium (Levothyroxine 100 Mcg Tablet) 100 mcg PO DAILY.0630 [facility] Stop: 11/20/24 06:29 Last Admin: 11/21/23 05:39 [...] Packet 1 packet TRANSDERML DAILY [facility] Stop: 11/20/24 08:59 Tirzepatide [ Mounjaro] 5 Mg/0.5 Ml Pen Injector 5 mg SUBCUT Tu@0900 [facility] Stop: 11/29/24 08:59 Ondansetron HCl (Ondansetron 4 Mg/2 Ml Vial) 4 mg IV-PUSH Q8H PRN PRN Reason: Nausea And Vomiting Stop: 11/19/24 21:02 Pregabalin (Pregabalin 150 Mg Capsule) 150 mg PO BID [facility] Stop: 05/19/24 08:59 Last Admin: 11/21/23 08:00 [...] Taqueria Reese M.D.11/21/2023 8:08 AM Dictation Location: [place] [address] Any impression(s) listed above is documentation that [...] diabetic nephropathy. Patient has been going to [facility] on TTS for hemodialysis. Last hemodialysis session [...] signed by Yocasta Villalba MD> 11/21/[address] [facility] Work Phone: [phone] History and physical note Author Buddy Murguia [facility] November 20, 2023 10:57pm Note Date/Time November 20, 2023 10: 38pm [facility] [address] [place] [address] Hospitalist H&P Signed Patient: Evans Forte MR#: [id number] : 1970 Acct:[id number] Age/Sex: 53 / M Adm Date: 4 Loc: 3T Room: [address] [place] [address] Type: ADM IN Attending Dr: Buddy Murguia [...] negative unless noted below or in HPI [facility] Medical History (Updated 11/20/23 @ 22:54 by [...] 2 Surgical History History of cardiac catheterization [facility] History of orthopedic surgery right foot has [...] 19:00 Lymph % (Auto) N/A 11/20/23 19:00 Thomas % (Auto) N/A 11/20/23 19:00 Eos % (Auto) N/A 11/20/23 19:00 Baso % (Auto) N/A 11/20/23 19:00 Nucleat RBC Rel Count N/A 11/20/23 19:00 Neut # (Auto) N/A 11/20/23 19:00 Lymph # (Auto) N/A 11/20/23 19:00 Thomas # (Auto) N/A 11/20/23 19:00 Eos # [...] days): 3 Documented By: Buddy Murguia DO 11/20/231 Signed By: <Electronically signed by Buddy Murguia, > 11/20/[address] [facility] Work Phone: [phone]) [phone] History of Present illness Narrative* Flakito High, DO - 10/13/2023 11:15 AM EST [...] Units tablet Daily RT Continuous Blood Gluc [employer] (Dexcom G7 [employer]) device Every 24 hours Continuous Blood Gluc [...] Reaction(s): Unknown Other reaction(s): Unknown Haloperidol Anxiety [employer] Oil GI intolerance Runny nose, watery eyes Wound Dressing Adhesive Rash PAST MEDICAL HISTORY: SOCIAL HISTORY SURGICAL HISTORY: Past Medical History: Diagnosis Date Allergies CKD (chronic kidney disease) Diabetes ([facility]/HCC) Family history of cancer Glaucoma ([facility]) History of being hospitalized 02/05/2017 [facility] - Discharged 02/07/17 Hyperlipidemia ([facility]/HCC) Hypertension ([facility]/HCC) Hypothyroidism (acquired) ([facility]) GUSTAVO (obstructive sleep apnea) Osteomyelitis of left foot ([facility]) PAD (peripheral artery disease) ([facility]) Pancreatitis x3 Subcutaneous mass of back 03/02/2023 [...] visit: Peritoneal dialysis catheter dysfunction, subsequent encounter ([facility]) Plan is for removal of peritoneal dialysis catheter. I discussed with him the procedure and the risks and potential complications including but not limited to bleeding, infection, pain, possible needfor abdominal exploration if can not remove the catheter easily, possible foreign body retained. Heunderstands and he would like to proceed. No follow-ups on file. documented in this encounterSelect Specialty [id number] Evaluation note* Encounter Date Diagnosis Assessment Notes [...] He understands and agrees with that plan [employer] Other 01-11-2024 History and physical note Author Ramirez Jean [facility] September 16, 2023 1:55pm Note Date/Time September 16, 2023 1 :56pm [facility] [address] [place] [address] Vascular Surgery H&P Signed Patient: Evans Forte MR#: [id number] : 1970 Acct:[id number] Age/Sex: 53 / M Adm Date: 4 Loc: ID Room: Type: [facility] Attending Dr: Ramirez Jean MD Copies to: [...] negative unless noted below or in HPI [facility] Medical History (Updated 09/16/23 @ 11:02 by [...] % (Auto) 74.1 Lymph % (Auto) 14.7 Thomas % (Auto) 7.3 Eos % (Auto) 3.5 Baso % (Auto) 0.4 Nucleat RBC Rel Count 0.0 Neut # (Auto) 8.4 H Lymph # (Auto) 1.7 Thomas # (Auto) 0.8 Eos # (Auto) 0.4 [...] MPV Neut % (Auto) Lymph % (Auto) Thomas % (Auto) Eos % (Auto) Baso % (Auto) Nucleat RBC Rel Count Neut # (Auto) Lymph # (Auto) Thomas # (Auto) Eos # (Auto) Baso # [...] <Electronically signed by MD Ramirez Jean> 09/16/23 [address] [facility] Work Phone: 1(722) 352-765110-16-2023 Evaluation note* Encounter Date Diagnosis Assessment Notes Treatment Notes Treatment Clinical Notes Jun, Type 2 diabetes mellitus with diabetic chronic kidney disease (ICD-10 - E11.22) [employer] Other 10-11-2023 Evaluation note* Encounter Date Diagnosis Assessment Notes Treatment Notes Treatment Clinical Notes Jun, Type 2 diabetes mellitus with diabetic chronic kidney disease (ICD-10 - E11.22) Managing type 2 diabetes material was published Kary Mercado 06/16/2023 12:15:59 PM >Blood glucose 58. Patient provided with 4 oz of apple juice Kary Mercado 06/16/2023 12:30:36 PM >Blood glucose 88. Patient [...] issues. 6. Prescriptions: Sent gvoke to [facility]. Sample dexcom g7 given. 7. Prescriptions will [...] your pharmacy, please contact our office at [phone]. Jun, Hypoglycemia (ICD-10 - E16.2) Low blood glucose and diabetes material was published Jun, CKD (chronic kidney disease) stage 5, GFR less than 15 ml/min (ICD-10 - N18.5) Living with chronic kidney disease material was published keep f/u with nephrology Jun, Other Ha was givena dexcom G7 sample at this appoitwient. He stated that he was previously using [...] on his phone by George Vasques RN, [facility]. [employer] Other 03-31-2023 Evaluation note* Encounter Date Diagnosis [...] advised him to take low potassium diet. [employer] Other 03-04-2023 Progress note Author Yocasta Villalba [facility] November 07, 2022 2:43pm Note Date/Time November 07, 2022 2:43 pm [facility] [address] [place] [address] Nephrology Progress Note Signed Patient: Evans Forte MR#: [id number] : 1970 Acct:[id number] Age/Sex: 52 / M Adm Date: 3 Loc: Room: [address] [place] [address] Type: ADM IN Attending Dr: Chintan Brewster DO Copies to: ~ Date of Service: 11/07/2022 Subjective Subjective Narrative: This is a 52-year-old male patient with a past sickle history of chronic kidney disease stage V from diabetic nephropathy, hypertension, morbid obesity, anemia of renal disease, neuropathy. 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 Waters for hyperkalemia with potassium 5.9 [...] 500 Mg Tablet) 500 mg PO DAILY [facility] Stop: 11/05/23 08:59 Last Admin: 11/07/22 08:38 Dose: 500 mg Atorvastatin Calcium (Atorvastatin 20 Mg Tablet) 20 mg PO DAILY [facility] Stop: 11/05/23 08:59 Last Admin: 11/07/22 08:37 Dose: 20 mg Carvedilol (Carvedilol 25 Mg Tablet) 25 mg PO BID [facility] Stop: 11/04/23 20:59 Last Admin: 11/07/22 08:38 Dose: 25 mg Docusate Sodium (Docusate 100 Mg Capsule) 100 mg PO BID [facility] Stop: 11/06/23 20:59 Last Admin: 11/07/22 08:40 Dose: Not Given Emollient Ointment (Petrolatum,White 99 Gm Oint...G.) 1 applic TOPICAL DAILY [facility] Stop: 11/05/23 09:59 Last Admin: 11/07/22 08:39 Dose: 1 applic Fenofibrate (Fenofibrate Nanocrystallized 145 Mg Tablet) 145 mg PO DAILY [facility] Stop: 11/05/23 08:59 Last Admin: 11/07/22 08:37 Dose: 145 mg Ferrous Sulfate (Ferrous Sulfate 324 Mg Tablet.Dr) 324 mg PO DAILY [facility] Stop: 11/05/23 08:59 Last Admin: 11/07/22 08:38 Dose: 324 mg Folic Acid (Cyanocobalamin/Fa/Pyridoxine 1 Tab Tablet) 1 tab PO DAILY [facility] Stop: 11/05/23 08:59 Last Admin: 11/07/22 08:38 Dose: 1 tab Furosemide (Furosemide 40 Mg/4 Ml Vial) 40 mg IV-PUSH DAILY.8A [facility] Stop: 11/07/23 09:54 Last Admin: 11/07/22 11:23 Dose: 40 mg Heparin Sodium (Porcine) (Heparin 5,000 Unit/Ml Vial) 5,000 unit SUBCUT Q8HR [facility] Stop: 11/05/23 13:59 Last Admin: 11/07/22 13:45 Dose: 5,000 unit Hydralazine HCl (Hydralazine 20 Mg/Ml Vial) 10 mg IV-PUSH Q4H PRN PRN Reason: if SBP > 185 Stop: 11/04/23 23:30 Last Admin: 11/07/22 12:13 Dose: 10 mg Hydralazine HCl (Hydralazine 50 Mg Tablet) 100 mg PO TID [facility] Stop: 11/07/23 13:59 Last Admin: 11/07/22 13:44 Dose: 100 mg Ferric Sodium Gluconate Complex 250 mg/ Sodium Chloride 270 mls @ 135 mls/hr IVQAM [facility] Stop: 11/09/22 09:01 Last Admin: 11/07/22 09:49 Dose: 135 mls/hr Insulin Human Regular (Insulin Regular U-500, Human 1,500 Unit/3 Ml Insuln.Pen) 45 unit SUBCUT DAILY@1700 [facility] Stop: 11/05/23 16:59 Last Admin: 11/06/22 17:13 Dose: 45 unit Insulin Human Regular (Insulin Regular U-500, Human 1,500 Unit/3 Ml Insuln.Pen) 70 unit SUBCUT DAILY@0600 [facility] Stop: 11/05/23 05:59 Last Admin: 11/07/22 05:54 Dose: 70 unit Labetalol HCl (Labetalol 100 Mg/20 Ml Vial) 10 mg IV-PUSH Q10M PRN PRN Reason: Hypertension Stop: 11/04/23 16:31 Last Admin: 11/04/22 21:41 Dose: 10 mg Levothyroxine Sodium (Levothyroxine 100 Mcg Tablet) 100 mcg PO DAILY@0630 [facility] Stop: 11/05/23 06:29 Last Admin: 11/07/22 05:55 Dose: 100 mcg Lorazepam (Lorazepam 2 Mg/Ml Vial) 0.5 mg IV-PUSH Q4H PRN PRN Reason: Agitation Stop: 05/05/23 16:50 Last Admin: 11/06/22 17:11 Dose: 0.5 mg Nifedipine (Nifedipine Er.24hr 90 Mg Tab.Er.24) 90 mg PO DAILY [facility] Stop: 11/05/23 08:59 Last Admin: 11/07/22 08:39 Dose: 90 mg Pregabalin (Pregabalin 50 Mg Capsule) 50 mg PO DAILY [facility] Stop: 05/04/23 08:59 Last Admin: 11/07/22 08:38 Dose: 50 mg Sodium Bicarbonate (Sodium Bicarbonate 650 Mg Tablet) 1,300 mg PO BID [facility] Stop: 11/05/23 10:29 Last Admin: 11/07/22 08:38 [...] 10 Gm Powd.Pack) 10 gm PO TID [facility] Stop: 11/07/23 13:59 Last Admin: 11/07/22 13:44 Dose: 10 gm Trazodone HCl (Trazodone 50 Mg Tablet) 50 mg PO QHS [facility] Stop: 11/06/23 20:59 Last Admin: 11/06/22 21:32 Dose: 50 mg Vitamin A (Vitamin A 3,000 Mcg (10,000 Units) Capsule) 3,000 mcg PO DAILY [facility] Stop: 11/05/23 08:59 Last Admin: 11/07/22 08:38 Dose: 3,000 mcg Vitamin D (Cholecalciferol 25 Mcg (1,000 Units) Tablet) 50 mcg PO DAILY [facility] Stop: 11/05/23 08:59 Last Admin: 11/07/22 08:37 Dose: 50 mcg Zinc Gluconate (Zinc Gluconate 50 Mg Tablet) 50 mg PO DAILY [facility] Stop: 11/05/23 08:59 Last Admin: 11/07/22 08:39 [...] a.m. Documented By: Yocasta Villalba MD 11/07/22 1431 Signed By: <Electronically signed by Yocasta Villalba MD> 11/07/[address] [facility] Work Phone: [phone] Progress note Author Masoud Maria [facility] November 07, 2022 8:40am Note Date/Time November 07, 2022 8:40 am [facility] [address] [place] [address] General Surgery Progress Note Signed Patient: Evans Forte MR#: [id number] : 1970 Acct:[id number] Age/Sex: 52 / M Adm Date: 3 Loc: Room: [address] [place] [address] Type: ADM IN Attending Dr: Chintan Brewster [...] Tablet) 500 mg PO DAILY [facility] Stop: 11/05/23 08:59 Last Admin: 11/06/22 10:32 Dose: Not Given Atorvastatin Calcium (Atorvastatin 20 Mg Tablet) 20 mg PO DAILY [facility] Stop: 11/05/23 08:59 Last Admin: 11/06/22 10:32 Dose: Not Given Carvedilol (Carvedilol 25 Mg Tablet) 25 mg PO BID [facility] Stop: 11/04/23 20:59 Last Admin: 11/06/22 21:32 Dose: 25 mg Docusate Sodium (Docusate 100 Mg Capsule) 100 mg PO BID [facility] Stop: 11/06/23 20:59 Last Admin: 11/06/22 21:32 Dose: Not Given Emollient Ointment (Petrolatum,White 99 Gm Oint...G.) 1 applic TOPICAL DAILY [facility] Stop: 11/05/23 09:59 Last Admin: 11/07/22 05:55 Dose: 1 applic Fenofibrate (Fenofibrate Nanocrystallized 145 Mg Tablet) 145 mg PO DAILY [facility] Stop: 11/05/23 08:59 Last Admin: 11/05/22 08:48 Dose: 145 mg Ferrous Sulfate (Ferrous Sulfate 324 Mg Tablet.Guille 324 mg PO DAILY [facility] Stop: 11/05/23 08:59 Last Admin: 11/06/22 10:32 Dose: Not Given Folic Acid (Cyanocobalamin/Fa/Pyridoxine 1 Tab Tablet) 1 tab PO DAILY [facility] Stop: 11/05/23 08:59 Last Admin: 11/06/22 10:32 Dose: Not Given Heparin Sodium (Porcine) (Heparin 5,000 Unit/Ml Vial) 5,000 unit SUBCUT Q8HR [facility] Stop: 11/05/23 13:59 Last Admin: 11/07/22 05:53 Dose: 5,000 unit Hydralazine HCl (Hydralazine 20 Mg/Ml Vial) 10 mg IV-PUSH Q4H PRN PRN Reason: if SBP > 185 Stop: 11/04/23 23:30 Last Admin: 11/04/22 23:40 Dose: 10 mg Hydralazine HCl (Hydralazine 50 Mg Tablet) 50 mg PO TID [facility] Stop: 11/05/23 05:59 Last Admin: 11/06/22 21:32 Dose: 50 mg Sodium Chloride (0.9% Sodium Chloride 500 Ml) 500 mls @ 20 mls/hr IV ONCE ONE Stop: 11/07/22 10:00 Last Admin: 11/06/22 10:37 Dose: 20 mls/hr Ferric Sodium Gluconate Complex 250 mg/ Sodium Chloride 270 mls @ 135 mls/hr IVQAM [facility] Stop: 11/09/22 09:01 Last Infusion: 11/06/22 13:03 Dose: Infused Insulin Human Regular (Insulin Regular U-500, Human 1,500 Unit/3 Ml Insuln.Pen) 45 unit SUBCUT DAILY@1700 [facility] Stop: 11/05/23 16:59 Last Admin: 11/06/22 17:13 Dose: 45 unit Insulin Human Regular (Insulin Regular U-500, Human 1,500 Unit/3 Ml Insuln.Pen) 70 unit SUBCUT DAILY@0600 [facility] Stop: 11/05/23 05:59 Last Admin: 11/07/22 05:54 Dose: 70 unit Labetalol HCl (Labetalol 100 Mg/20 Ml Vial) 10 mg IV-PUSH Q10M PRN PRN Reason: Hypertension Stop: 11/04/23 16:31 Last Admin: 11/04/22 21:41 Dose: 10 mg Levothyroxine Sodium (Levothyroxine 100 Mcg Tablet) 100 mcg PO DAILY@0630 [facility] Stop: 11/05/23 06:29 Last Admin: 11/07/22 05:55 Dose: 100 mcg Lorazepam (Lorazepam 2 Mg/Ml Vial) 0.5 mg IV-PUSH Q4H PRN PRN Reason: Agitation Stop: 05/05/23 16:50 Last Admin: 11/06/22 17:11 Dose: 0.5 mg Nifedipine (Nifedipine Er.24hr 90 Mg Tab.Er.24) 90 mg PO DAILY [facility] Stop: 11/05/23 08:59 Last Admin: 11/06/22 10:32 Dose: Not Given Pregabalin (Pregabalin 50 Mg Capsule) 50 mg PO DAILY [facility] Stop: 05/04/23 08:59 Last Admin: 11/06/22 10:32 Dose: Not Given Sodium Bicarbonate (Sodium Bicarbonate 650 Mg Tablet) 1,300 mg PO BID [facility] Stop: 11/05/23 10:29 Last Admin: 11/06/22 21:32 [...] Zirconium Cyclosilicate 5 gm 15 gmPO DAILY [facility] Stop: 11/06/23 10:29 Last Admin: 11/06/22 15:41 Dose: 15 gm Trazodone HCl (Trazodone 50 Mg Tablet) 50 mg PO QHS [facility] Stop: 11/06/23 20:59 Last Admin: 11/06/22 21:32 Dose: 50 mg Vitamin A (Vitamin A 3,000 Mcg (10,000 Units) Capsule) 3,000 mcg PO DAILY [facility] Stop: 11/05/23 08:59 Last Admin: 11/06/22 10:32 Dose: Not Given Vitamin D (Cholecalciferol 25 Mcg (1,000 Units) Tablet) 50 mcg PO DAILY [facility] Stop: 11/05/23 08:59 Last Admin: 11/06/22 10:32 Dose: Not Given Zinc Gluconate (Zinc Gluconate 50 Mg Tablet) 50 mg PO DAILY [facility] Stop: 11/05/23 08:59 Last Admin: 11/06/22 10:32 [...] % (Auto) 87.5, Lymph % (Auto) 5.8, Thomas % (Auto) 6.5, Eos % (Auto)0.1, Baso % (Auto) 0.1, Nucleat RBC Rel Count 0.1, Neut # (Auto) 10.9 H, Lymph #(Auto) 0.7 L, Thomas # (Auto) 0.8, Eos # (Auto) 0.0, [...] % (Auto) 74.7, Lymph % (Auto) 13.3, Thomas % (Auto) 9.0, Eos % (Auto) 2.5, Baso % (Auto) 0.5, Nucleat RBC Rel Count 0.1, Neut # (Auto) 10.0 H, Lymph # (Auto) 1.8, Thomas # (Auto) 1.2 H, Eos # (Auto) [...] signed by Masoud Maria DO> 11/07/[address] [facility] Work Phone: [phone] Progress note Author Chintan Brewster [facility] November 06, 2022 5:26pm Note Date/Time November 06, 2022 5:26 pm [facility] [address] [place] [address] Hospitalist Progress Note Signed Patient: Evans Forte MR#: [id number] : 1970 Acct:[id number] Age/Sex: 52 / M Adm Date: 3 Loc: Room: [address] [place] [address] Type: ADM IN Attending Dr: Chintan Brewster [...] Tablet PO 11/05/23 08:59 Not Given DAILY [facility] Atorvastatin Calcium 20 mg 11/05/22 09:00 11/06/22 10:32 Atorvastatin 20 Mg Tablet PO 11/05/23 08:59 Not Given DAILY [facility] Carvedilol 25 mg 11/04/22 21:00 11/06/22 09:05 Carvedilol 25 Mg Tablet PO 11/04/23 20:59 25 mg BID [facility] Administration Docusate Sodium 100 mg 11/06/22 21:00 Docusate 100 Mg Capsule PO 11/06/23 20:59 BID [facility] Emollient Ointment 1 applic 11/05/22 10:00 11/06/22 09:05 Petrolatum,White 99 Gm Oint...G. TOPICAL 11/05/23 09:59 1 applic DAILY [facility] Administration Fenofibrate 145 mg 11/05/22 09:00 11/05/22 08:48 Fenofibrate Nanocrystallized 145 Mg Tablet PO 11/05/23 08:59 145 mg DAILY [facility] Administration Ferrous Sulfate 324 mg 11/05/22 09:00 11/06/22 10:32 Ferrous Sulfate 324 Mg Tablet. PO 11/05/23 08:59 Not Given DAILY [facility] Folic Acid 1 tab 11/05/22 09:00 11/06/22 10:32 Cyanocobalamin/Fa/Pyridoxine 1 Tab Tablet PO 11/05/23 08:59 Not Given DAILY [facility] Heparin Sodium (Porcine) 5,000 unit 11/05/22 14:00 11/06/22 14:15 Heparin 5,000 Unit/Ml Vial SUBCUT 11/05/23 13:59 Not Given Q8HR [facility] Hydralazine HCl 10 mg 11/04/22 23:31 11/04/22 23:40 Hydralazine 20 Mg/Ml Vial IV-PUSH 11/04/23 23:30 10 mg Q4H PRN Administration if SBP > 185 Hydralazine HCl 50 mg 11/05/22 06:00 11/06/22 15:41 Hydralazine 50 Mg Tablet PO 11/05/23 05:59 50 mg TID [facility] Administration Sodium Chloride 500 mls @ 20 mls/hr 11/06/22 09:01 11/06/22 10:37 0.9% Sodium Chloride 500 Ml IV 11/07/22 10:00 20 mls/hr ONCE ONE Administration Ferric Sodium Gluconate 270 mls @ 135 mls/hr 11/06/22 10:20 11/06/22 13:03 Complex 250 mg/ Sodium IV 11/09/22 09:01 Infused Chloride QAM [facility] Infusion Insulin Human Regular 45 unit 11/05/22 17:00 11/06/22 17:13 Insulin Regular U-500, Human 1,500 Unit/3 Ml Insuln.Pen SUBCUT 11/05/23 16:59 45 unit DAILY@1700 [facility] Administration Insulin Human Regular 70 unit 11/05/22 06:00 11/06/22 06:25 Insulin Regular U-500, Human 1,500 Unit/3 Ml Insuln.Pen SUBCUT 11/05/23 05:59 Not Given DAILY@0600 [facility] Insulin Human Regular 0 unit 11/06/22 12:34 [...] 11/05/23 06:29 Not Given DAILY@0630 [facility] Lidocaine HCl 0.1 ml 11/06/22 12:34 Lidocaine 1% 20 Ml Vial INTRADERMA 11/06/22 18:34 PREOP PRN Venipuncture Lorazepam 0.5 mg 11/06/22 16:51 11/06/22 17:11 Lorazepam 2 Mg/Ml Vial IV-PUSH 05/05/23 16:50 0.5 mg Q4H PRN Administration Agitation Nifedipine 90 mg 11/05/22 09:00 11/06/22 10:32 Nifedipine Er.24hr 90 Mg Tab.Er.24 PO 11/05/23 08:59 Not Given DAILY [facility] Pregabalin 50 mg 11/05/22 09:00 11/06/22 10:32 Pregabalin 50 Mg Capsule PO 05/04/23 08:59 Not Given DAILY [facility] Sodium Bicarbonate 1,300 mg 11/05/22 14:40 11/06/22 10:32 Sodium Bicarbonate 650 Mg Tablet PO 11/05/23 10:29 Not Given BID [facility] Sodium Chloride 0 ml 11/04/22 13:54 Sodium [...] 10:29 15 gm Cyclosilicate 5 gm DAILY [facility] Administration Trazodone HCl 50 mg 11/06/22 21:00 Trazodone 50 Mg Tablet PO 11/06/23 20:59 QHS [facility] Vitamin A 3,000 mcg 11/05/22 09:00 11/06/22 10:32 Vitamin A 3,000 Mcg (10,000 Units) Capsule PO 11/05/23 08:59 Not Given DAILY [facility] Vitamin D 50 mcg 11/05/22 09:00 11/06/22 10:32 Cholecalciferol 25 Mcg (1,000 Units) Tablet PO 11/05/23 08:59 Not Given DAILY [facility] Zinc Gluconate 50 mg 11/05/22 09:00 11/06/22 10:32 Zinc Gluconate 50 Mg Tablet PO 11/05/23 08:59 Not Given DAILY [facility] Documented By: Chintan Brewster DO 11/06/22 17 24 Signed By: <Electronically signed by Chintan Brewster DO> 11/06/[address] [facility] Work Phone: [phone] Progress note Author Yocasta Villalba [facility] November 06, 2022 2:57pm Note Date/Time November 06, 2022 2:57 pm [facility] [address] [place] [address] Nephrology Progress Note Signed Patient: Evans Forte MR#: [id number] : 1970 Acct:[id number] Age/Sex: 52 / M Adm Date: 3 Loc: Room: [address] [place] [address] Type: ADM IN Attending Dr: Chintan Brewster DO Copies to: ~ Date of Service: 11/06/2022 Subjective Subjective Narrative: This is a 52-year-old male patient with a past sickle history of chronic kidney disease stage V from diabetic nephropathy, hypertension, morbid obesity, anemia of renal disease, neuropathy. 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 Waters for hyperkalemia with potassium 5.9 [...] Tablet) 500 mg PO DAILY [facility] Stop: 11/05/23 08:59 Last Admin: 11/06/22 10:32 Dose: Not Given Atorvastatin Calcium (Atorvastatin 20 Mg Tablet) 20 mg PO DAILY [facility] Stop: 11/05/23 08:59 Last Admin: 11/06/22 10:32 Dose: Not Given Carvedilol (Carvedilol 25 Mg Tablet) 25 mg PO BID [facility] Stop: 11/04/23 20:59 Last Admin: 11/06/22 09:05 Dose: 25 mg Docusate Sodium (Docusate 100 Mg Capsule) 100 mg PO BID [facility] Stop: 11/06/23 20:59 Droperidol (Droperidol 5 Mg/2 Ml Vial) 1.25 mg IV-PUSH ONCE PRN PRN Reason: Nausea And Vomiting Stop: 11/06/22 16:28 Emollient Ointment (Petrolatum,White 99 Gm Oint...G.) 1 applic TOPICAL DAILY [facility] Stop: 11/05/23 09:59 Last Admin: 11/06/22 09:05 Dose: 1 applic Fenofibrate (Fenofibrate Nanocrystallized 145 Mg Tablet) 145 mg PO DAILY [facility] Stop: 11/05/23 08:59 Last Admin: 11/05/22 08:48 Dose: 145 mg Ferrous Sulfate (Ferrous Sulfate 324 Mg Tablet.Dr) 324 mg PO DAILY [facility] Stop: 11/05/23 08:59 Last Admin: 11/06/22 10:32 Dose: Not Given Folic Acid (Cyanocobalamin/Fa/Pyridoxine 1 Tab Tablet) 1 tab PO DAILY [facility] Stop: 11/05/23 08:59 Last Admin: 11/06/22 10:32 Dose: Not Given Heparin Sodium (Porcine) (Heparin 5,000 Unit/Ml Vial) 5,000 unit SUBCUT Q8HR [facility] Stop: 11/05/23 13:59 Last Admin: 11/06/22 14:15 Dose: Not Given Hydralazine HCl (Hydralazine 20 Mg/Ml Vial) 10 mg IV-PUSH Q4H PRN PRN Reason: if SBP > 185 Stop: 11/04/23 23:30 Last Admin: 11/04/22 23:40 Dose: 10 mg Hydralazine HCl (Hydralazine 50 Mg Tablet) 50 mg PO TID [facility] Stop: 11/05/23 05:59 Last Admin: 11/06/22 10:32 Dose: Not Given Sodium Chloride (0.9% Sodium Chloride 500 Ml) 500 mls @ 20 mls/hr IV ONCE ONE Stop: 11/07/22 10:00 Last Admin: 11/06/22 10:37 Dose: 20 mls/hr Ferric Sodium Gluconate Complex 250 mg/ Sodium Chloride 270 mls @ 135 mls/hr IVQAM [facility] Stop: 11/09/22 09:01 Last Infusion: 11/06/22 13:03 Dose: Infused Insulin Human Regular (Insulin Regular U-500, Human 1,500 Unit/3 Ml Insuln.Pen) 45 unit SUBCUT DAILY@1700 [facility] Stop: 11/05/23 16:59 Last Admin: 11/05/22 18:24 Dose: 45 unit Insulin Human Regular (Insulin Regular U-500, Human 1,500 Unit/3 Ml Insuln.Pen) 70 unit SUBCUT DAILY@0600 [facility] Stop: 11/05/23 05:59 Last Admin: 11/06/22 06:25 [...] Tablet) 100 mcg PO DAILY@0630 [facility] Stop: 11/05/23 06:29 Last Admin: 11/06/22 06:38 Dose: Not Given Lidocaine HCl (Lidocaine 1% 20 Ml Vial) 0.1 ml INTRADERMA PREOP PRN PRN Reason: Venipuncture Stop: 11/06/22 15:01 Lidocaine HCl (Lidocaine 1% 20 Ml Vial) 0.1 ml INTRADERMA PREOP PRN PRN Reason: Venipuncture Stop: 11/06/22 18:34 Nifedipine (Nifedipine Er.24hr 90 Mg Tab.Er.24) 90 mg PO DAILY [facility] Stop: 11/05/23 08:59 Last Admin: 11/06/22 10:32 Dose: Not Given Ondansetron HCl (Ondansetron 4 Mg/2 Ml Vial) 4 mg IV-PUSH ONCE PRN PRN Reason: Nausea/Vomiting Stop: 11/06/22 16:28 Pregabalin (Pregabalin 50 Mg Capsule) 50 mg PO DAILY [facility] Stop: 05/04/23 08:59 Last Admin: 11/06/22 10:32 Dose: Not Given Sodium Bicarbonate (Sodium Bicarbonate 650 Mg Tablet) 1,300 mg PO BID [facility] Stop: 11/05/23 10:29 Last Admin: 11/06/22 10:32 Dose: Not Given Sodium Chloride (Sodium Chloride 0.9 % 10 Ml Syringe) 0 ml IV-PUSH PRN PRN PRN Reason: Flush Stop: 11/04/23 13:53 Sodium Zirconium Cyclosilicate 10 gm/ Sodium Zirconium Cyclosilicate 5 gm 15 gmPO DAILY [facility] Stop: 11/06/23 10:29 Vitamin A (Vitamin A 3,000 Mcg (10,000 Units) Capsule) 3,000 mcg PO DAILY [facility] Stop: 11/05/23 08:59 Last Admin: 11/06/22 10:32 Dose: Not Given Vitamin D (Cholecalciferol 25 Mcg (1,000 Units) Tablet) 50 mcg PO DAILY [facility] Stop: 11/05/23 08:59 Last Admin: 11/06/22 10:32 Dose: Not Given Zinc Gluconate (Zinc Gluconate 50 Mg Tablet) 50 mg PO DAILY [facility] Stop: 11/05/23 08:59 Last Admin: 11/06/22 10:32 Dose: Not Given Allergies haloperidol [From Haldol] Adverse Reaction (Verified 03/03/23 00:55) Anxiety Results Labs 11/06/22 04:25 11/06/22 [...] a.m. Documented By: Yocasta Villalba MD 11/06/22 7108 Signed By: <Electronically signed by Yocasta Villalba MD> 11/06/[address] [facility] Work Phone: [phone] Progress note Author Chintan Brewster [facility] November 05, 2022 3:55pm Note Date/Time November 05, 2022 3:55 pm [facility] [address] [place] [address] Hospitalist Progress Note Signed Patient: Evans Forte MR#: [id number] : 1970 Acct:[id number] Age/Sex: 52 / M Adm Date: 3 Loc: Room: [address] [place] [address] Type: ADM IN Attending Dr: Chintan Brewster [...] Tablet PO 11/05/23 08:59 500 mg DAILY [facility] Administration Atorvastatin Calcium 20 mg 11/05/22 09:00 11/05/22 08:50 Atorvastatin 20 Mg Tablet PO 11/05/23 08:59 20 mg DAILY [facility] Administration Carvedilol 25 mg 11/04/22 21:00 11/05/22 08:50 Carvedilol 25 Mg Tablet PO 11/04/23 20:59 25 mg BID [facility] Administration Emollient Ointment 1 applic 11/05/22 10:00 Petrolatum,White 99 Gm Oint...G. TOPICAL 11/05/23 09:59 DAILY [facility] Fenofibrate 145 mg 11/05/22 09:00 11/05/22 08:48 Fenofibrate Nanocrystallized 145 Mg Tablet PO 11/05/23 08:59 145 mg DAILY [facility] Administration Ferrous Sulfate 324 mg 11/05/22 09:00 11/05/22 08:52 Ferrous Sulfate 324 Mg Tablet. PO 11/05/23 08:59 324 mg DAILY [facility] Administration Folic Acid 1 tab 11/05/22 09:00 11/05/22 08:48 Cyanocobalamin/Fa/Pyridoxine 1 Tab Tablet PO 11/05/23 08:59 1 tab DAILY [facility] Administration Furosemide 80 mg 11/06/22 08:00 Furosemide 80 Mg Tablet PO 11/06/23 07:59 DAILY.8A [facility] Heparin Sodium (Porcine) 5,000 unit 11/05/22 14:00 11/05/22 14:48 Heparin 5,000 Unit/Ml Vial SUBCUT 11/05/23 13:59 5,000 unit Q8HR [facility] Administration Hydralazine HCl 10 mg 11/04/22 23:31 11/04/22 23:40 Hydralazine 20 Mg/Ml Vial IV-PUSH 11/04/23 23:30 10 mg Q4H PRN Administration if SBP > 185 Hydralazine HCl 50 mg 11/05/22 06:00 11/05/22 14:49 Hydralazine 50 Mg Tablet PO 11/05/23 05:59 50 mg TID [facility] Administration Insulin Human Regular 45 unit 11/05/22 17:00 Insulin Regular U-500, Human 1,500 Unit/3 Ml Insuln.Pen SUBCUT 11/05/23 16:59 DAILY@1700 [facility] Insulin Human Regular 70 unit 11/05/22 06:00 11/05/22 08:05 Insulin Regular U-500, Human 1,500 Unit/3 Ml Insuln.Pen SUBCUT 11/05/23 05:59 70 unit DAILY@0600 [facility] Administration Labetalol HCl 10 mg 11/04/22 16:32 11/04/22 21:41 Labetalol 100 Mg/20 Ml Vial IV-PUSH 11/04/23 16:31 10 mg Q10M PRN Administration Hypertension Levothyroxine Sodium 100 mcg 11/05/22 06:30 11/05/22 06:10 Levothyroxine 100 Mcg Tablet PO 11/05/23 06:29 100 mcg DAILY@0630 [facility] Administration Nifedipine 90 mg 11/05/22 09:00 11/05/22 08:52 Nifedipine Er.24hr 90 Mg Tab.Er.24 PO 11/05/23 08:59 90 mg DAILY [facility] Administration Pregabalin 50 mg 11/05/22 09:00 11/05/22 08:52 Pregabalin 50 Mg Capsule PO 05/04/23 08:59 50 mg DAILY [facility] Administration Sodium Bicarbonate 1,300 mg 11/05/22 14:40 Sodium Bicarbonate 650 Mg Tablet PO 11/05/23 10:29 BID [facility] Sodium Chloride 0 ml 11/04/22 13:54 Sodium Chloride 0.9 % 10 Ml Syringe IV-PUSH 11/04/23 13:53 PRN PRN Flush Vitamin A 3,000 mcg 11/05/22 09:00 11/05/22 08:52 Vitamin A 3,000 Mcg (10,000 Units) Capsule PO 11/05/23 08:59 3,000 mcg DAILY [facility] Administration Vitamin D 50 mcg 11/05/22 09:00 11/05/22 08:50 Cholecalciferol 25 Mcg (1,000 Units) Tablet PO 11/05/23 08:59 50 mcg DAILY [facility] Administration Zinc Gluconate 50 mg 11/05/22 09:00 11/05/22 08:52 Zinc Gluconate 50 Mg Tablet PO 11/05/23 08:59 50 mg DAILY [facility] Administration Documented By: Chintan Brewster DO 11/05/22 15 54 Signed By: <Electronically signed by Chintan Brewster DO> 11/05/[address] [facility] Work Phone: [phone] Consult note Author Yocasta Villalba [facility] November 05, 2022 2:39pm Note Date/Time November 05, 2022 2:39 pm [facility] [address] [place] [address] Nephrology Consult Note Signed Patient: Evans Forte MR#: [id number] : 1970 Acct:[id number] Age/Sex: 52 / M Adm Date: 3 Loc: Room: [address] [place] [address] Type: ADM IN Attending Dr: Chintan Brewster [...] was referred to the hospital by his supervisor [employer] Dr. Waters for hyperkalemia with potassium 5.9 [...] 500 Mg Tablet) 500 mg PO DAILY [facility] Stop: 11/05/23 08:59 Last Admin: 11/05/22 08:49 Dose: 500 mg Atorvastatin Calcium (Atorvastatin 20 Mg Tablet) 20 mg PO DAILY [facility] Stop: 11/05/23 08:59 Last Admin: 11/05/22 08:50 Dose: 20 mg Carvedilol (Carvedilol 25 Mg Tablet) 25 mg PO BID [facility] Stop: 11/04/23 20:59 Last Admin: 11/05/22 08:50 Dose: 25 mg Emollient Ointment (Petrolatum,White 99 Gm Oint...G.) 1 applic TOPICAL DAILY [facility] Stop: 11/05/23 09:59 Fenofibrate (Fenofibrate Nanocrystallized 145 Mg Tablet) 145 mg PO DAILY [facility] Stop: 11/05/23 08:59 Last Admin: 11/05/22 08:48 Dose: 145 mg Ferrous Sulfate (Ferrous Sulfate 324 Mg Tablet.) 324 mg PO DAILY [facility] Stop: 11/05/23 08:59 Last Admin: 11/05/22 08:52 Dose: 324 mg Folic Acid (Cyanocobalamin/Fa/Pyridoxine 1 Tab Tablet) 1 tab PO DAILY [facility] Stop: 11/05/23 08:59 Last Admin: 11/05/22 08:48 Dose: 1 tab Heparin Sodium (Porcine) (Heparin 5,000 Unit/Ml Vial) 5,000 unit SUBCUT Q8HR [facility] Stop: 11/05/23 13:59 Hydralazine HCl (Hydralazine 20 Mg/Ml Vial) 10 mg IV-PUSH Q4H PRN PRN Reason: if SBP > 185 Stop: 11/04/23 23:30 Last Admin: 11/04/22 23:40 Dose: 10 mg Hydralazine HCl (Hydralazine 50 Mg Tablet) 50 mg PO TID [facility] Stop: 11/05/23 05:59 Last Admin: 11/05/22 08:52 Dose: 50 mg Insulin Human Regular (Insulin Regular U-500, Human 1,500 Unit/3 Ml Insuln.Pen) 45 unit SUBCUT DAILY@1700 [facility] Stop: 11/05/23 16:59 Insulin Human Regular (Insulin Regular U-500, Human 1,500 Unit/3 Ml Insuln.Pen) 70 unit SUBCUT DAILY@0600 [facility] Stop: 11/05/23 05:59 Last Admin: 11/05/22 08:05 Dose: 70 unit Labetalol HCl (Labetalol 100 Mg/20 Ml Vial) 10 mg IV-PUSH Q10M PRN PRN Reason: Hypertension Stop: 11/04/23 16:31 Last Admin: 11/04/22 21:41 Dose: 10 mg Levothyroxine Sodium (Levothyroxine 100 Mcg Tablet) 100 mcg PO DAILY@0630 [facility] Stop: 11/05/23 06:29 Last Admin: 11/05/22 06:10 Dose: 100 mcg Nifedipine (Nifedipine Er.24hr 90 Mg Tab.Er.24) 90 mg PO DAILY [facility] Stop: 11/05/23 08:59 Last Admin: 11/05/22 08:52 Dose: 90 mg Pregabalin (Pregabalin 50 Mg Capsule) 50 mg PO DAILY [facility] Stop: 05/04/23 08:59 Last Admin: 11/05/22 08:52 Dose: 50 mg Sodium Bicarbonate (Sodium Bicarbonate 650 Mg Tablet) 650 mg PO BID [facility] Stop: 11/05/23 10:29 Last Admin: 11/05/22 12:03 Dose: 650 mg Sodium Chloride (Sodium Chloride 0.9 % 10 Ml Syringe) 0 ml IV-PUSH PRN PRN PRN Reason: Flush Stop: 11/04/23 13:53 Vitamin A (Vitamin A 3,000 Mcg (10,000 Units) Capsule) 3,000 mcg PO DAILY [facility] Stop: 11/05/23 08:59 Last Admin: 11/05/22 08:52 Dose: 3,000 mcg Vitamin D (Cholecalciferol 25 Mcg (1,000 Units) Tablet) 50 mcg PO DAILY [facility] Stop: 11/05/23 08:59 Last Admin: 11/05/22 08:50 Dose: 50 mcg Zinc Gluconate (Zinc Gluconate 50 Mg Tablet) 50 mg PO DAILY [facility] Stop: 11/05/23 08:59 Last Admin: 11/05/22 08:52 [...] IMPRESSION: NO ACUTE FINDINGS Impression dictated by: Lenore [email or web address] [email or web address]/04/2022 3:50 PM Dictation Location: [place] [address] Any impression(s) listed above is documentation that [...] signed by Yocasta Villalba MD> 11/05/[address] [facility] Work Phone: [phone] 173-416103-02-2023 Consult note Author Flakito High [facility] November 05, 2022 12:31pm Note Date/Time November 05, 2022 12:3 1pm [facility] [address] [place] [address] General Surgery Consult Note Signed Patient: Evans Forte MR#: [id number] : 1970 Acct:[id number] Age/Sex: 52 / M Adm Date: 3 Loc: Room: [address] [place] [address] Type: ADM IN Attending Dr: Chintan Brewster [...] instead of hemodialysis. He has talked his supervisor [employer]atto[employer] about this. He is not having any [...] Tablet) 500 mg PO DAILY [facility] Stop: 11/05/23 08:59 Last Admin: 11/05/22 08:49 Dose: 500 mg Atorvastatin Calcium (Atorvastatin 20 Mg Tablet) 20 mg PO DAILY [facility] Stop: 11/05/23 08:59 Last Admin: 11/05/22 08:50 Dose: 20 mg Carvedilol (Carvedilol 25 Mg Tablet) 25 mg PO BID [facility] Stop: 11/04/23 20:59 Last Admin: 11/05/22 08:50 Dose: 25 mg Emollient Ointment (Petrolatum,White 99 Gm Oint...G.) 1 applic TOPICAL DAILY [facility] Stop: 11/05/23 09:59 Fenofibrate (Fenofibrate Nanocrystallized 145 Mg Tablet) 145 mg PO DAILY [facility] Stop: 11/05/23 08:59 Last Admin: 11/05/22 08:48 Dose: 145 mg Ferrous Sulfate (Ferrous Sulfate 324 Mg Tablet.) 324 mg PO DAILY [facility] Stop: 11/05/23 08:59 Last Admin: 11/05/22 08:52 Dose: 324 mg Folic Acid (Cyanocobalamin/Fa/Pyridoxine 1 Tab Tablet) 1 tab PO DAILY [facility] Stop: 11/05/23 08:59 Last Admin: 11/05/22 08:48 Dose: 1 tab Heparin Sodium (Porcine) (Heparin 5,000 Unit/Ml Vial) 5,000 unit SUBCUT Q8HR [facility] Stop: 11/05/23 13:59 Hydralazine HCl (Hydralazine 20 Mg/Ml Vial) 10 mg IV-PUSH Q4H PRN PRN Reason: if SBP > 185 Stop: 11/04/23 23:30 Last Admin: 11/04/22 23:40 Dose: 10 mg Hydralazine HCl (Hydralazine 50 Mg Tablet) 50 mg PO TID [facility] Stop: 11/05/23 05:59 Last Admin: 11/05/22 08:52 Dose: 50 mg Insulin Human Regular (Insulin Regular U-500, Human 1,500 Unit/3 Ml Insuln.Pen) 45 unit SUBCUT DAILY@1700 [facility] Stop: 11/05/23 16:59 Insulin Human Regular (Insulin Regular U-500, Human 1,500 Unit/3 Ml Insuln.Pen) 70 unit SUBCUT DAILY@0600 [facility] Stop: 11/05/23 05:59 Last Admin: 11/05/22 08:05 Dose: 70 unit Labetalol HCl (Labetalol 100 Mg/20 Ml Vial) 10 mg IV-PUSH Q10M PRN PRN Reason: Hypertension Stop: 11/04/23 16:31 Last Admin: 11/04/22 21:41 Dose: 10 mg Levothyroxine Sodium (Levothyroxine 100 Mcg Tablet) 100 mcg PO DAILY@0630 [facility] Stop: 11/05/23 06:29 Last Admin: 11/05/22 06:10 Dose: 100 mcg Nifedipine (Nifedipine Er.24hr 90 Mg Tab.Er.24) 90 mg PO DAILY [facility] Stop: 11/05/23 08:59 Last Admin: 11/05/22 08:52 Dose: 90 mg Pregabalin (Pregabalin 50 Mg Capsule) 50 mg PO DAILY [facility] Stop: 05/04/23 08:59 Last Admin: 11/05/22 08:52 Dose: 50 mg Sodium Bicarbonate (Sodium Bicarbonate 650 Mg Tablet) 650 mg PO BID [facility] Stop: 11/05/23 10:29 Last Admin: 11/05/22 12:03 Dose: 650 mg Sodium Chloride (Sodium Chloride 0.9 % 10 Ml Syringe) 0 ml IV-PUSH PRN PRN PRN Reason: Flush Stop: 11/04/23 13:53 Vitamin A (Vitamin A 3,000 Mcg (10,000 Units) Capsule) 3,000 mcg PO DAILY [facility] Stop: 11/05/23 08:59 Last Admin: 11/05/22 08:52 Dose: 3,000 mcg Vitamin D (Cholecalciferol 25 Mcg (1,000 Units) Tablet) 50 mcg PO DAILY [facility] Stop: 11/05/23 08:59 Last Admin: 11/05/22 08:50 Dose: 50 mcg Zinc Gluconate (Zinc Gluconate 50 Mg Tablet) 50 mg PO DAILY [facility] Stop: 11/05/23 08:59 Last Admin: 11/05/22 08:52 [...] % (Auto) 72.3, Lymph % (Auto) 14.6, Thomas % (Auto) 9.5, Eos % (Auto) 2.8, Baso % (Auto) 0.8, Nucleat RBC Rel Count 0.0, Neut # (Auto) 9.8 H, Lymph # (Auto) 2.0, Thomas # (Auto) 1.3 H, Eos # (Auto) [...] % (Auto) 74.8, Lymph % (Auto) 12.4, Thomas % (Auto) 9.0, Eos % (Auto) 2.7, Baso % (Auto) 1.1, Nucleat RBC Rel Count 0.0, Neut # (Auto) 9.1 H, Lymph # (Auto) 1.5, Thomas # (Auto) 1.1 H, Eos # (Auto) 0.3, Baso # (Auto) 0.1, Monocyte Dist Width 17.32 11/04/22 14:04: Urine Color Yellow, Urine Appearance Clear, Urine pH 5.5, Ur Specific [place] 1.013, Urine Protein 300 H, Urine Glucose [...] signed by DO Flakito High> 11/05/[address] [facility] Work Phone: [phone] 122-863403-01-2023 History and physical note Author Chintan Brewster [facility] November 04, 2022 8:11pm Note Date/Time November 04, 2022 8:11 pm [facility] [address] [place] [address] Hospitalist H&P Signed Patient: Evans Forte MR#: [id number] : 1970 Acct:[id number] Age/Sex: 52 / M Adm Date: 3 Loc: ER Room: Type: [facility] ER Attending Dr: Copies to: DO Delano Dhillon MD Michael R. Frings, ~ HPI DATE OF EXAMINATION: 11/04/22 CHIEF COMPLAINT: Abnormal labs HISTORY OF PRESENT ILLNESS: This patient is a 52-year-old male who presented to the emergency department earlier today with a chief complaint of abnormal labs at the recommendation of his supervisor abattoir. He is in preparation for peritoneal dialysis [...] protein. The patient was admitted to the [facility] floor for further evaluation and treatment after [...] % (Auto) 12.4 % (.) 11/04/22 15:11 Thomas % (Auto) 9.0 % (.) 11/04/22 15:11 Eos % (Auto) 2.7 % (.) 11/04/22 15:11 Baso % (Auto) 1.1 % (.) 11/04/22 15:11 Nucleat RBC Rel Count 0.0 /100 WBC (0-0.5) 11/04/22 15:11 Neut # (Auto) 9.1 x10E3/uL (1.8-7.7) H 11/04/22 15:11 Lymph # (Auto) 1.5 x10E3/uL (1.00-4.8) 11/04/22 15:11 Thomas # (Auto) 1.1 x10E3/uL (0.0-0.8) H 11/04/22 [...] pH 5.5 (5.0-9.0) 11/04/22 14:04 Ur Specific [place] 1.013 (1.001-1.030) 11/04/22 14:04 Urine Protein 300 [...] <Electronically signed by Chintan Brewster DO> 11/04/222010 [facility] Work Phone: [phone]) 502-318212-07-2022 Evaluation note* Encounter Date Diagnosis Assessment Notes [...] discussed with him the different option of PUG MACHINE OPERATOR including PD, 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 He is interested in PD. No need to initiate dialysis now. We will refer to the Dr. Allred once he needed to be initiated on PD. I have encouraged him to lose weight for kidney transplant. Continue follow with [facility]. He is a suitable candidate [...] advised him to take low potassium diet. [employer] Other 10-18-2022 Hospital Discharge instructions Additional Instructions Your kidney function is within your usual range. There has been no significant worsening over the last few months. Your blood sugar is okay tonight. It was only 150 here. In terms of overall management, please call Dr. Ricketts tomorrow to discuss with her any changes in your insulin.[facility] Work Phone: [phone] 198-211309-14-2022 Evaluation note* Encounter Date Diagnosis Assessment Notes [...] discussed with him the different option of PUG MACHINE OPERATOR including PD, 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 He is interested in PD. No need to initiate dialysis now. We will refer to the Dr. Allred once he needed to be initiated on PD. I have encouraged him to lose weight for kidney transplant. Continue follow with continues to [facility]. May, Hypertensive chronic kidney disease with stage [...] advised him to take low potassium diet. [employer] Other 07-07-2022 Evaluation note* Encounter Date Diagnosis [...] discussed with him the different option of PUG MACHINE OPERATOR including PD, 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 He is interested in PD. I have encouraged him to lose weight for kidney transplant. Continue follow with continues to [facility]. Mar, Hypertensive chronic kidney disease with stage [...] advised him to take low potassium diet. [employer] Other 06-23-2022 NotePROCEDURE: XR FOOT RT MIN [...] Electronically authenticated by: VIRGINIA GARCIA Date: 2022-02-26 16:16[facility]03-30-2022 Evaluation note* Encounter Date Diagnosis Assessment Notes [...] discussed with him the different option of PUG MACHINE OPERATOR including PD, 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 He is interested in PD. I have encouraged him to lose weight for kidney transplant. Continue follow with continues to [facility]. Nov, Hypertensive chronic kidney disease [...] advised him to take low potassium diet. [employer] Other 12-16-2021 NoteHISTORY: Follow up prior CT, left adrenal [...] and signed by Anibal Calle on 08/21/2021 1123[facility] [place] [facility] SpecialistConsult note Author Flakito High [facility] November 05, 2022 12:31pm Note Date/Time November 05, 2022 12:3 1pm [facility] [address] [place] [address] General Surgery Consult Note Signed Patient: Evans Forte MR#: [id number] : 1970 Acct:[id number] Age/Sex: 52 / M Adm Date: 3 Loc: 4 Room: [address] [place] [address] Type: ADM IN Attending Dr: Chintan Brewster [...] instead of hemodialysis. He has talked his supervisor abattoir about this. He is not having any [...] Tablet) 500 mg PO DAILY [facility] Stop: 11/05/23 08:59 Last Admin: 11/05/22 08:49 Dose: 500 mg Atorvastatin Calcium (Atorvastatin 20 Mg Tablet) 20 mg PO DAILY [facility] Stop: 11/05/23 08:59 Last Admin: 11/05/22 08:50 Dose: 20 mg Carvedilol (Carvedilol 25 Mg Tablet) 25 mg PO BID [facility] Stop: 11/04/23 20:59 Last Admin: 11/05/22 08:50 Dose: 25 mg Emollient Ointment (Petrolatum,White 99 Gm Oint...G.) 1 applic TOPICAL DAILY [facility] Stop: 11/05/23 09:59 Fenofibrate (Fenofibrate Nanocrystallized 145 Mg Tablet) 145 mg PO DAILY [facility] Stop: 11/05/23 08:59 Last Admin: 11/05/22 08:48 Dose: 145 mg Ferrous Sulfate (Ferrous Sulfate 324 Mg Tablet.Dr) 324 mg PO DAILY [facility] Stop: 11/05/23 08:59 Last Admin: 11/05/22 08:52 Dose: 324 mg Folic Acid (Cyanocobalamin/Fa/Pyridoxine 1 Tab Tablet) 1 tab PO DAILY [facility] Stop: 11/05/23 08:59 Last Admin: 11/05/22 08:48 Dose: 1 tab Heparin Sodium (Porcine) (Heparin 5,000 Unit/Ml Vial) 5,000 unit SUBCUT Q8HR [facility] Stop: 11/05/23 13:59 Hydralazine HCl (Hydralazine 20 Mg/Ml Vial) 10 mg IV-PUSH Q4H PRN PRN Reason: if SBP > 185 Stop: 11/04/23 23:30 Last Admin: 11/04/22 23:40 Dose: 10 mg Hydralazine HCl (Hydralazine 50 Mg Tablet) 50 mg PO TID [facility] Stop: 11/05/23 05:59 Last Admin: 11/05/22 08:52 Dose: 50 mg Insulin Human Regular (Insulin Regular U-500, Human 1,500 Unit/3 Ml Insuln.Pen) 45 unit SUBCUT DAILY@1700 [facility] Stop: 11/05/23 16:59 Insulin Human Regular (Insulin Regular U-500, Human 1,500 Unit/3 Ml Insuln.Pen) 70 unit SUBCUT DAILY@0600 [facility] Stop: 11/05/23 05:59 Last Admin: 11/05/22 08:05 Dose: 70 unit Labetalol HCl (Labetalol 100 Mg/20 Ml Vial) 10 mg IV-PUSH Q10M PRN PRN Reason: Hypertension Stop: 11/04/23 16:31 Last Admin: 11/04/22 21:41 Dose: 10 mg Levothyroxine Sodium (Levothyroxine 100 Mcg Tablet) 100 mcg PO DAILY@0630 [facility] Stop: 11/05/23 06:29 Last Admin: 11/05/22 06:10 Dose: 100 mcg Nifedipine (Nifedipine Er.24hr 90 Mg Tab.Er.24) 90 mg PO DAILY [facility] Stop: 11/05/23 08:59 Last Admin: 11/05/22 08:52 Dose: 90 mg Pregabalin (Pregabalin 50 Mg Capsule) 50 mg PO DAILY [facility] Stop: 05/04/23 08:59 Last Admin: 11/05/22 08:52 Dose: 50 mg Sodium Bicarbonate (Sodium Bicarbonate 650 Mg Tablet) 650 mg PO BID [facility] Stop: 11/05/23 10:29 Last Admin: 11/05/22 12:03 Dose: 650 mg Sodium Chloride (Sodium Chloride 0.9 % 10 Ml Syringe) 0 ml IV-PUSH PRN PRN PRN Reason: Flush Stop: 11/04/23 13:53 Vitamin A (Vitamin A 3,000 Mcg (10,000 Units) Capsule) 3,000 mcg PO DAILY [facility] Stop: 11/05/23 08:59 Last Admin: 11/05/22 08:52 Dose: 3,000 mcg Vitamin D (Cholecalciferol 25 Mcg (1,000 Units) Tablet) 50 mcg PO DAILY [facility] Stop: 11/05/23 08:59 Last Admin: 11/05/22 08:50 Dose: 50 mcg Zinc Gluconate (Zinc Gluconate 50 Mg Tablet) 50 mg PO DAILY [facility] Stop: 11/05/23 08:59 Last Admin: 11/05/22 08:52 [...] % (Auto) 72.3, Lymph % (Auto) 14.6, Thomas % (Auto) 9.5, Eos % (Auto) 2.8, Baso % (Auto) 0.8, Nucleat RBC Rel Count 0.0, Neut # (Auto) 9.8 H, Lymph # (Auto) 2.0, Thomas # (Auto) 1.3 H, Eos # (Auto) [...] % (Auto) 74.8, Lymph % (Auto) 12.4, Thomas % (Auto) 9.0, Eos % (Auto) 2.7, Baso % (Auto) 1.1, Nucleat RBC Rel Count 0.0, Neut # (Auto) 9.1 H, Lymph # (Auto) 1.5, Thomas # (Auto) 1.1 H, Eos # (Auto) 0.3, Baso # (Auto) 0.1, Monocyte Dist Width 17.32 11/04/22 14:04: Urine Color Yellow, Urine Appearance Clear, Urine pH 5.5, Ur Specific [place] 1.013, Urine Protein 300 H, Urine Glucose [...] Status: Chronic Documented By: Flakito High DO 11/05/228 Signed By: <Electronically signed by DO Flakito High> 11/05/22 1231 [facility] Work Phone: Consult note Author Yocasta Villalba [facility] November 05, 2022 2:39pm Note Date/Time November 05, 2022 2:39 pm [facility] [address] [place] [address] Nephrology Consult Note Signed Patient: Evans Forte MR#: [id number] : 1970 Acct:[id number] Age/Sex: 52 / M Adm Date: 3 Loc: Room: [address] [place] [address] Type: ADM IN Attending Dr: Chintan Brewster [...] was referred to the hospital by his supervisor abattoir Dr. Waters for hyperkalemia with potassium 5.9 [...] Tablet) 500 mg PO DAILY [facility] Stop: 11/05/23 08:59 Last Admin: 11/05/22 08:49 Dose: 500 mg Atorvastatin Calcium (Atorvastatin 20 Mg Tablet) 20 mg PO DAILY [facility] Stop: 11/05/23 08:59 Last Admin: 11/05/22 08:50 Dose: 20 mg Carvedilol (Carvedilol 25 Mg Tablet) 25 mg PO BID [facility] Stop: 11/04/23 20:59 Last Admin: 11/05/22 08:50 Dose: 25 mg Emollient Ointment (Petrolatum,White 99 Gm Oint...G.) 1 applic TOPICAL DAILY [facility] Stop: 11/05/23 09:59 Fenofibrate (Fenofibrate Nanocrystallized 145 Mg Tablet) 145 mg PO DAILY [facility] Stop: 11/05/23 08:59 Last Admin: 11/05/22 08:48 Dose: 145 mg Ferrous Sulfate (Ferrous Sulfate 324 Mg Tablet.) 324 mg PO DAILY [facility] Stop: 11/05/23 08:59 Last Admin: 11/05/22 08:52 Dose: 324 mg Folic Acid (Cyanocobalamin/Fa/Pyridoxine 1 Tab Tablet) 1 tab PO DAILY [facility] Stop: 11/05/23 08:59 Last Admin: 11/05/22 08:48 Dose: 1 tab Heparin Sodium (Porcine) (Heparin 5,000 Unit/Ml Vial) 5,000 unit SUBCUT Q8HR [facility] Stop: 11/05/23 13:59 Hydralazine HCl (Hydralazine 20 Mg/Ml Vial) 10 mg IV-PUSH Q4H PRN PRN Reason: if SBP > 185 Stop: 11/04/23 23:30 Last Admin: 11/04/22 23:40 Dose: 10 mg Hydralazine HCl (Hydralazine 50 Mg Tablet) 50 mg PO TID [facility] Stop: 11/05/23 05:59 Last Admin: 11/05/22 08:52 Dose: 50 mg Insulin Human Regular (Insulin Regular U-500, Human 1,500 Unit/3 Ml Insuln.Pen) 45 unit SUBCUT DAILY@1700 [facility] Stop: 11/05/23 16:59 Insulin Human Regular (Insulin Regular U-500, Human 1,500 Unit/3 Ml Insuln.Pen) 70 unit SUBCUT DAILY@0600 [facility] Stop: 11/05/23 05:59 Last Admin: 11/05/22 08:05 Dose: 70 unit Labetalol HCl (Labetalol 100 Mg/20 Ml Vial) 10 mg IV-PUSH Q10M PRN PRN Reason: Hypertension Stop: 11/04/23 16:31 Last Admin: 11/04/22 21:41 Dose: 10 mg Levothyroxine Sodium (Levothyroxine 100 Mcg Tablet) 100 mcg PO DAILY@0630 [facility] Stop: 11/05/23 06:29 Last Admin: 11/05/22 06:10 Dose: 100 mcg Nifedipine (Nifedipine Er.24hr 90 Mg Tab.Er.24) 90 mg PO DAILY [facility] Stop: 11/05/23 08:59 Last Admin: 11/05/22 08:52 Dose: 90 mg Pregabalin (Pregabalin 50 Mg Capsule) 50 mg PO DAILY [facility] Stop: 05/04/23 08:59 Last Admin: 11/05/22 08:52 Dose: 50 mg Sodium Bicarbonate (Sodium Bicarbonate 650 Mg Tablet) 650 mg PO BID [facility] Stop: 11/05/23 10:29 Last Admin: 11/05/22 12:03 Dose: 650 mg Sodium Chloride (Sodium Chloride 0.9 % 10 Ml Syringe) 0 ml IV-PUSH PRN PRN PRN Reason: Flush Stop: 11/04/23 13:53 Vitamin A (Vitamin A 3,000 Mcg (10,000 Units) Capsule) 3,000 mcg PO DAILY [facility] Stop: 11/05/23 08:59 Last Admin: 11/05/22 08:52 Dose: 3,000 mcg Vitamin D (Cholecalciferol 25 Mcg (1,000 Units) Tablet) 50 mcg PO DAILY [facility] Stop: 11/05/23 08:59 Last Admin: 11/05/22 08:50 Dose: 50 mcg Zinc Gluconate (Zinc Gluconate 50 Mg Tablet) 50 mg PO DAILY [facility] Stop: 11/05/23 08:59 Last Admin: 11/05/22 08:52 [...] Escudero Jr., DHimanshuOHimanshu11/04/2022 3:50 PM Dictation Location: [place] [address] Any impression(s) listed above is documentation that [...] signed by Yocasta Villalba MD> 11/05/[address] [facility] Work Phone: Consult note Author Yocasta Vlilalba [facility] November 21, 2023 10:16am Note Date/Time November 21, 2023 10: 16am [facility] [address] [place] [address] Nephrology Consult Note Signed Patient: Evans Forte MR#: [id number] : 1970 Acct:[id number] Age/Sex: 53 / M Adm Date: 4 Loc: Room: [address] [place] [address] Type: ADM IN Attending Dr: Arnol Calloway MD Copies to: DO Yocasta Dhillon MD Frederick E Doamekpor, MD~ Providers Consult Date: 11/21/23 Requesting Provider: Arnol Calloway MD Primary Care Provider: Idania Ricketts DO [facility] Reason for Consult: End-stage renal disease care History of Present Illness: This is a 53-year-old male patient with a past medical history of hypertension, hyperlipidemia, end-stage renal disease on TTS hemodialysis schedule at [facility], insulin-dependent diabetes mellitus, obstructive sleep apnea, right [...] systems: 12 system review is negative today [facility] Medical History (Updated 11/21/23 @ 10:12 by [...] 2 Surgical History History of cardiac catheterization [facility] History of orthopedic surgery right foot has [...] (Anastrozole 1 Mg Tablet) [facility] Stop: 11/20/24 08:59 Last Admin: 11/21/23 08:00 Dose: 1 mg Atorvastatin Calcium (Atorvastatin 20 Mg Tablet) [facility] Stop: 11/20/24 08:59 Last Admin: 11/21/23 08:00 Dose: 20 mg Calcitriol (Calcitriol 0.25 Mcg Capsule) 0.25 mcg PO TuThSa@0900 [facility] Stop: 11/22/24 08:59 Calcium Acetate (Calcium Acetate 667 Mg Capsule) 2,668 mg PO [facility] Stop: 11/20/24 07:29 Last Admin: 11/21/23 07:54 Dose: 2,668 mg Cyanocobalamin (Cyanocobalamin 1,000 Mcg Tablet) 1,000 mcg PO DAILY [facility] Stop: 11/20/24 08:59 Last Admin: 11/21/23 08:00 Dose: 1,000 mcg Heparin Sodium (Porcine) (Heparin 5,000 Unit/Ml Vial) 5,000 unit SUBCUT Q12HR [facility] Stop: 11/20/24 08:59 Last Admin: 11/21/23 08:00 Dose: 5,000 unit Linezolid (Zyvox) 600 mg in 300 mls @ 300 mls/hr IV Q12H [facility] Last Admin: 11/21/23 09:06 Dose: 300 mls/hr Ceftriaxone Sodium (Rocephin) 2 gm in 50 mls @ 100 mls/hr IV Q24H [facility] Insulin Human Regular (Insulin Regular U-500, Human 1,500 Unit/3 Ml Insuln.Pen) 50 unit SUBCUT BID [facility] Stop: 11/20/24 08:59 Last Admin: 11/21/23 08:00 Dose: 50 unit Levothyroxine Sodium (Levothyroxine 100 Mcg Tablet) 100 mcg PO DAILY.0630 [facility] Stop: 11/20/24 06:29 Last Admin: 11/21/23 05:39 [...] Packet 1 packet TRANSDERML DAILY [facility] Stop: 11/20/24 08:59 Tirzepatide [ Mounjaro] 5 Mg/0.5 Ml Pen Injector 5 mg SUBCUT Tu@0900 [facility] Stop: 11/29/24 08:59 Ondansetron HCl (Ondansetron 4 Mg/2 Ml Vial) 4 mg IV-PUSH Q8H PRN PRN Reason: Nausea And Vomiting Stop: 11/19/24 21:02 Pregabalin (Pregabalin 150 Mg Capsule) 150 mg PO BID [facility] Stop: 05/19/24 08:59 Last Admin: 11/21/23 08:00 [...] Taqueria Reese M.D.11/21/2023 8:08 AM Dictation Location: [place] [address] Any impression(s) listed above is documentation that [...] diabetic nephropathy. Patient has been going to [facility] on TTS for hemodialysis. Last hemodialysis session [...] signed by Yocasta Villalba MD> 11/21/[address] [facility] Work Phone: Consult note Author Chintan Hernández [facility] November 22, 2023 11:26am Note Date/Time November 22, 2023 11: 26am [facility] [address] [place] [address] Infect. Disease Consult Note Signed Patient: Evans Forte MR#: [id number] : 1970 Acct:[id number] Age/Sex: 53 / M Adm Date: 4 Loc: Room: [address] [place] [address] Type: ADM IN Attending Dr: Amy Escudero [...] On linezolid and ceftriaxone. CC: Amy Escudero, DO Review of Systems Review of Systems All other systems reviewed & are negative unless noted below or in HPI [facility] Medical History (Updated 11/22/23 @ 11:24 by [...] 2 Surgical History History of cardiac catheterization [facility] History of orthopedic surgery right foot has [...] Tablet) 1 mg PO QAM [facility] Stop: 11/20/24 08:59 Last Admin: 11/22/23 08:14 Dose: 1 mg Atorvastatin Calcium (Atorvastatin 20 Mg Tablet) 20 mg PO QAM [facility] Stop: 11/20/24 08:59 Last Admin: 11/22/23 08:13 Dose: 20 mg Calcitriol (Calcitriol 0.25 Mcg Capsule) 0.25 mcg PO TuThSa@0900 [facility] Stop: 11/22/24 08:59 Calcium Acetate (Calcium Acetate 667 Mg Capsule) 2,668 mg PO AC [facility] Stop: 11/20/24 07:29 Last Admin: 11/22/23 08:13 Dose: 2,668 mg Cyanocobalamin (Cyanocobalamin 1,000 Mcg Tablet) 1,000 mcg PO DAILY [facility] Stop: 11/20/24 08:59 Last Admin: 11/22/23 08:13 Dose: 1,000 mcg Heparin Sodium (Porcine) (Heparin 5,000 Unit/Ml Vial) 5,000 unit SUBCUT Q12HR [facility] Stop: 11/20/24 08:59 Last Admin: 11/22/23 08:14 Dose: 5,000 unit Linezolid (Zyvox) 600 mg in 300 mls @ 300 mls/hr IV Q12H [facility] Last Admin: 11/22/23 08:58 Dose: 300 mls/hr Ceftriaxone Sodium (Rocephin) 2 gm in 50 mls @ 100 mls/hr IV Q24H [facility] Last Admin: 11/21/23 19:41 Dose: 100 mls/hr Insulin Aspart (Insulin Aspart 300 Units/3 Ml Insuln.Pen) 0 units SUBCUT ACHS [facility]; Protocol Stop: 11/20/24 16:29 Last Admin: 11/22/23 08:13 Dose: Not Given Insulin Human Regular (Insulin Regular U-500, Human 1,500 Unit/3 Ml Insuln.Pen) 50 unit SUBCUT BID [facility] Stop: 11/20/24 08:59 Last Admin: 11/22/23 08:16 Dose: 50 unit Levothyroxine Sodium (Levothyroxine 100 Mcg Tablet) 100 mcg PO DAILY.0630 [facility] Stop: 11/20/24 06:29 Last Admin: 11/22/23 05:29 [...] Packet 1 packet TRANSDERML DAILY [facility] Stop: 11/20/24 08:59 Last Admin: 11/21/23 10:14 Dose: Not Given Tirzepatide [ Mounjaro] 5 Mg/0.5 Ml Pen Injector 5 mg SUBCUT Tu@0900 [facility] Stop: 11/29/24 08:59 Ondansetron HCl (Ondansetron 4 Mg/2 Ml Vial) 4 mg IV-PUSH Q8H PRN PRN Reason: Nausea And Vomiting Stop: 11/19/24 21:02 Pregabalin (Pregabalin 150 Mg Capsule) 150 mg PO BID [facility] Stop: 05/19/24 08:59 Last Admin: 11/22/23 08:14 [...] @ 300 mls/hr IV Q12H [facility] Rx# :[id number] Output: Urine 100 / 100 Other: # [...] signed by MD Chintan Hernández> 11/22/[address] [facility] Work Phone: Consult note Author Gi Mondragon [facility] November 23, 2023 3:51pm Note Date/Time November 22, 2023 5:3 0pm [facility] [address] [place] [address] Podiatry Consult Note Signed Patient: Evans Forte MR#: [id number] : 1970 Acct:[id number] Age/Sex: 53 / M Adm Date: 4 Loc: Room: [address] [place] [address] Type: ADM IN Attending Dr: Amy Escudero [...] heel. 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 Patient states that the ulcerations [...] negative unless noted below or in HPI [facility] Medical History (Updated 11/23/23 @ 10:16 by [...] 2 Surgical History History of cardiac catheterization [facility] History of orthopedic surgery right foot has [...] <Electronically signed by TIARA Mondragon> 11/23/23 1551 [facility] Work Phone: Discharge summary Author Chintan rBewster [facility] November 07, 2022 4:43pm Note Date/Time November 07, 2022 4:43 pm [facility] [address] [place] [address] Discharge Summary Signed Patient: Evans Forte MR#: [id number] : 1970 Acct:[id number] Age/Sex: 52 / M Adm Date: 3 Loc: Room: [address] [place] [address]: Chintan Brewster DO Copies to: DO Chintan Dhillon DO~ Providers Date of Discharge: 11/07/22 Discharging Provider: [...] Dialysis Insert Laparoscopic(Not Applicable) - Flakito High, Diagnostic Studies Completed and Pending Studies Pending [...] % (Auto) 87.5, Lymph % (Auto) 5.8, Thomas % (Auto) 6.5, Eos % (Auto) 0.1, Baso % (Auto) 0.1, Nucleat RBC Rel Count 0.1, Neut # (Auto) 10.9 H, Lymph # (Auto) 0.7 L, Thomas # (Auto) 0.8, Eos # (Auto) 0.0, [...] a prescription was provided. follow with your supervisor abattoir for training on peritoneal dialysis Follow-up with [...] Determined by Patient Ordered By: Chintan Brewster DME Home Medical Equipment (Routine) Timeframe: 1 Day Location: Determined by Patient Ordered By: Chintan Brewster Follow Up: [facility] [Outside] - 11/12/22 10:30 am (Please keep your previously scheduled follow up appointments. 11/12/22 at 10:30am 11/20/22 at 10:30am) Flakito High DO [Active Staff - D.O.] - (Call office on Wednesday to schedule follow-up with Dr. High) Idania Ricketts DO [Primary Care Provider] - 11/16/22 10:00 am ([facility], call office to reschedule if needed. ) Documented By: Chintan Brewster DO 11/07/22 16 39 Signed By: <Electronically signed by Chintan Brewster DO> 11/07/22 1543 [facility] Work Phone: Discharge summary Author Amy Escudero [facility] November 24, 2023 1:40pm Note Date/Time November 23, 2023 5:0 1pm [facility] [address] [place] [address] Discharge Summary Signed Patient: Evans Forte MR#: [id number] : 1970 Acct:[id number] Age/Sex: 53 / M Adm Date: 4 Loc: Room: [address] [place] [address]: Amy Escudero DO Copies to: DO Shannon Dhillon, HARSH Escudero DO~ Providers Date of Discharge: 11/23/23 Discharging [...] history of hypertension, hyperlipidemia, ESRD on dialysis T, diabetic and insulin-dependent, GUSTAVO,and neuropathy, chronic right [...] wound care and will follow-up with his rapid transit operator and primary care physician outpatient. Time Spent [...] % (Auto) 63.3, Lymph % (Auto) 20.6, Thomas % (Auto) 9.8, Eos % (Auto) 5.6, Baso % (Auto) 0.7, Nucleat RBC Rel Count 0.0, Neut # (Auto) 4.9, Lymph # (Auto) 1.6, Thomas # (Auto) 0.8, Eos # (Auto) 0.4, [...] to schedule an appointment with your established Senior Laboratory Technician. HOME HEALTH TO MANAGE: Nursing to eval [...] Allen> 11/23/23 1736 <Electronically signed by Amy Escudeor DO> 11/24/[address] [facility] Work Phone: Evaluation + Plan note No data available for this section [facility] Evaluation noteNo [employer] Other Evaluation noteNo assessment information available [facility] Work Phone: Evaluation note* Diagnosis Onset Date Resolution Status Acute hyperkalemia acute Chronic kidney disease acute Hypertension acute [facility] Work Phone: Evaluation note* Diagnosis Onset Date Resolution Status Acute hyperkalemia acute Acute kidney injury superimposed on CKD acute Chronic kidney disease acute CKD (chronic kidney disease) stage 5, GFR less than 15 ml/min acute Hyperkalemia acute Hypertension acute Insulin dependent diabetes mellitus acute Metabolic acidosis acute [id number] chronic [id number] chronic [facility] Work Phone: Evaluation note* Diagnosis Onset Date Resolution Status [id number] chronic [facility] Work Phone: Evaluation note* Diagnosis Peritoneal dialysis catheter dysfunction, subsequent encounter ([facility])- Primary [facility]* Diagnosis Onset Date Resolution Status [id number] chronic Dependence on renal dialysis acute [facility] Work Phone: Evaluation note* Diagnosis Onset Date Resolution Status Anemia of renal disease acut e Benign hypertension with end-stage renal disease acute Diabetes acute [id number] acute [id number] acute Edema of right lower extremity acute End stage renal disease acut e Fever acute Hyperparathyroidism acute Hypertension acute Hypomagnesemia acute Insulin dependent diabetes mellitus acute Sepsis acute SIRS (systemic inflammatory response syndrome) acute Type 2 diabetes mellitus wit h diabetic chronic kidney disease acute Ulcer of right foot acute Ulcer of right heel acute Vomiting acute Wound of right foot acute [facility] Work Phone: Evaluation note* Diagnosis Onset Date Resolution Status Edema of right lower extremity acute Fever resolved Hypomagnesemia resolved Sepsis resolved SIRS (systemic inflammatory response syndrome) resolved Vomiting resolved [facility] Work Phone: Evaluation note* Diagnosis Onset Date Resolution Status Edema of right lower extremity acute Fever resolved Hypomagnesemia resolved Sepsis resolved SIRS (systemic inflammatory response syndrome) resolved Vomiting resolved AV fistula acute End stage renal disease acut e ESRD on hemodialysis acute [facility] Work Phone: Evaluation note* Diagnosis Onset Date Resolution Status Benign hypertension with end-stage renal disease acute Edema of right lower extremity acute Type 2 diabetes mellitus wit h diabetic chronic kidney disease acute Fever resolved Hypomagnesemia resolved Sepsis resolved SIRS (systemic inflammatory response syndrome) resolved Vomiting resolved AV fistula acute End stage renal disease acut e ESRD on hemodialysis acute [facility] Work Phone: Evaluation note* Diagnosis Onset Date [...] on hemodialysis acute ESRD on hemodialysis acute [facility] Work Phone: Evaluation note* Diagnosis Ulcer of right heel and midfoot with fat layer exposed (CMS/HCC)- Primary Type 2 diabetes mellitus with peripheral neuropathy (CMS/HCC) Neuropathy Mononeuritis of unspecified site documented in this encounter [facility]* Diagnosis Obstructive sleep apnea syndrome- [...] amputation of lesser toe, left (HCC) (CMS/HCC) Obstructive sleep apnea syndrome- Primary Obstructive [...] diabetes mellitus with ESRD (end-stage renal disease) ([facility]) 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, with long-term current use of insulin ([facility]) Chronic kidney disease with end stage renal disease on dialysis due to type 2 diabetes mellitus ([facility]) Dependence on renal dialysis ([facility]) Renal dialysis status Anxiety Anxiety state, unspecified Pure hypercholesterolemia (CMS/[facility]) Pure hypercholesterolemia Long-term insulin use ([facility]) Hx of amputation of lesser toe, left ([facility]) ([facility]) Other iron deficiency anemia 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 classified elsewhere ([facility]) Non-pressure chronic ulcer of other part of right foot with unspecified severity ([facility]) Type 2 diabetes mellitus with foot ulcer, with long-term current use of insulin ([facility]) Class 3 severe obesity due to excess calories with serious comorbidity and body mass index (BMI) of 40.0 to 44.9 in adult ([facility]) Type 2 diabetes mellitus with peripheral neuropathy ([facility])- Primary Anxiety Anxiety state, unspecified Ulcer of right heel and midfoot with fat layer exposed ([facility])- Primary Ulcer of right foot, limited to breakdown of skin ([facility]) Type 2 diabetes mellitus with peripheral neuropathy ([facility]) Neuropathy Mononeuritis of unspecified site Type 2 diabetes mellitus with foot ulcer, with long-term current use of insulin ([facility]) documented in this encounter [facility]* Diagnosis Obstructive sleep apnea syndrome- Primary Obstructive sleep apnea (adult) (pediatric) Type 2 diabetes with nephropathy ([facility]) Type 2 diabetes mellitus with peripheral neuropathy ([facility]) 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, with long-term current use of insulin ([facility]) Long-term insulin use ([facility] 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 ([facility] Essential hypertension ([facility] Unspecified essential hypertension Peripheral vascular disease ([facility] Unspecified peripheral vascular disease End stage renal disease ([facility]) End stage renal disease Type 2 diabetes mellitus with ESRD (end-stage renal disease) ([facility]) Acquired hypothyroidism ([facility]) Unspecified hypothyroidism Dependence on renal dialysis ([facility]) Renal dialysis status Pure hypercholesterolemia ([facility]) Pure hypercholesterolemia Chronic maxillary sinusitis Class 3 severe obesity due to excess calories with serious comorbidity and body mass index (BMI) of 45.0 to 49.9 in adult ([facility]) Adrenal nodule ([facility]) Benign neoplasm of adrenal gland Anxiety Anxiety state, unspecified Hx of amputation of lesser toe, left (HCC) ([facility]) Obstructive sleep apnea syndrome- Primary Obstructive sleep apnea (adult) (pediatric) Primary insomnia Persistent disorder of initiating or maintaining sleep 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 ([facility]) Type 2 diabetes mellitus with peripheral neuropathy ([facility]) Essential hypertension ([facility] Unspecified essential hypertension Peripheral vascular disease ([facility] Unspecified peripheral vascular disease End stage renal disease ([facility]) End stage renal disease Acquired hypothyroidism ([facility]) Unspecified hypothyroidism Type 2 diabetes mellitus with ESRD (end-stage renal disease) ([facility]) 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, with long-term current use of insulin ([facility]) Chronic kidney disease with end stage renal disease on dialysis due to type 2 diabetes mellitus ([facility]) Dependence on renal dialysis ([facility]) Renal dialysis status Anxiety Anxiety state, unspecified Pure hypercholesterolemia ([facility]) Pure hypercholesterolemia Long-term insulin use ([facility]) Hx of amputation of lesser toe, left (HCC) ([facility]) Other iron deficiency anemia 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 classified elsewhere ([facility]) Non-pressure chronic ulcer of other part of right foot with unspecified severity ([facility]) Type 2 diabetes mellitus with foot ulcer, with long-term current use of insulin ([facility]) Class 3 severe obesity due to excess calories with serious comorbidity and body mass index (BMI) of 40.0 to 44.9 in adult ([facility]) Type 2 diabetes mellitus with peripheral neuropathy ([facility])- Primary Anxiety Anxiety state, unspecified Obstructive sleep apnea syndrome- Primary Obstructive sleep apnea (adult) (pediatric) 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 ([facility]) Type 2 diabetes mellitus with peripheral neuropathy ([facility]/HCC) Essential hypertension ([facility] Unspecified essential hypertension Peripheral vascular disease ([facility] Unspecified peripheral vascular disease End stage renal disease ([facility]) End stage renal disease Acquired hypothyroidism ([facility]) Unspecified hypothyroidism Type 2 diabetes mellitus with ESRD (end-stage renal disease) ([facility]) 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, with long-term current use of insulin ([facility]) Chronic kidney disease with end stage renal disease on dialysis due to type 2 diabetes mellitus ([facility]) Anxiety Anxiety state, unspecified Dependence on renal dialysis ([facility]) Renal dialysis status Pure hypercholesterolemia ([facility]) Pure hypercholesterolemia Long-term insulin use ([facility]) Hx of amputation of lesser toe, left ([facility]) ([facility]) Class 3 severe obesity due to excess calories with serious comorbidity and body mass index (BMI) of 40.0 to 44.9 in adult ([facility]) Inguinal adenopathy Enlargement of lymph nodes documented in [facility]* Diagnosis Ulcer of right heel and midfoot with fat layer exposed ([facility])- Primary Neuropathy Mononeuritis of unspecified site Ulcer of right foot, limited to breakdown of skin ([facility]) Type 2 diabetes mellitus with peripheral neuropathy ([facility]) documented in [facility]* Diagnosis 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 ([facility]) documented in [facility]* Diagnosis Ulcer of right heel and midfoot with fat layer exposed ([facility])- Primary Ulcer of right foot, limited to breakdown of skin ([facility]) documented in [facility]* Diagnosis Type 2 diabetes mellitus with peripheral neuropathy ([facility])- Primary Anxiety Anxiety state, unspecified documented in [facility]* Diagnosis Neuropathy- Primary Mononeuritis of unspecified site Type 2 diabetes mellitus with peripheral neuropathy ([facility]) documented [facility]* Diagnosis Obstructive sleep apnea syndrome- Primary Obstructive sleep apnea (adult) (pediatric) Type 2 diabetes with nephropathy ([facility]) Type 2 diabetes mellitus with peripheral neuropathy ([facility]) 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, with long-term current use of insulin ([facility]) Long-term insulin use ([facility] 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 ([facility] Essential hypertension ([facility] Unspecified essential hypertension Peripheral vascular disease ([facility] Unspecified peripheral vascular disease End stage renal disease ([facility]) End stage renal disease Type 2 diabetes mellitus with ESRD (end-stage renal disease) ([facility]) Acquired hypothyroidism ([facility]) Unspecified hypothyroidism Dependence on renal dialysis ([facility]) Renal dialysis status Pure hypercholesterolemia ([facility]) Pure hypercholesterolemia Chronic maxillary sinusitis Class 3 severe obesity due to excess calories with serious comorbidity and body mass index (BMI) of 45.0 to 49.9 in adult ([facility]) Adrenal nodule ([facility]) Benign neoplasm of adrenal gland Anxiety Anxiety state, unspecified Hx of amputation of lesser toe, left (HCC) ([facility]) Obstructive sleep apnea syndrome- Primary Obstructive sleep apnea (adult) (pediatric) Primary insomnia Persistent disorder of initiating or maintaining sleep 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 ([facility]) Type 2 diabetes mellitus with peripheral neuropathy ([facility]) Essential hypertension ([facility] Unspecified essential hypertension Peripheral vascular disease ([facility] Unspecified peripheral vascular disease End stage renal disease ([facility]) End stage renal disease Acquired hypothyroidism ([facility]) Unspecified hypothyroidism Type 2 diabetes mellitus with ESRD (end-stage renal disease) ([facility]) 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, with long-term current use of insulin ([facility]) Chronic kidney disease with end stage renal disease on dialysis due to type 2 diabetes mellitus ([facility]) Dependence on renal dialysis ([facility]) Renal dialysis status Anxiety Anxiety state, unspecified Pure hypercholesterolemia ([facility]) Pure hypercholesterolemia Long-term insulin use ([facility]) Hx of amputation of lesser toe, left (HCC) ([facility]) Other iron deficiency anemia 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 classified elsewhere ([facility]) Non-pressure chronic ulcer of other part of right foot with unspecified severity ([facility]) Type 2 diabetes mellitus with foot ulcer, with long-term current use of insulin ([facility]) Class 3 severe obesity due to excess calories with serious comorbidity and body mass index (BMI) of 40.0 to 44.9 in adult ([facility]) Type 2 diabetes mellitus with peripheral neuropathy ([facility])- Primary Anxiety Anxiety state, unspecified Obstructive sleep apnea syndrome- Primary Obstructive sleep apnea (adult) (pediatric) 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 ([facility]) Type 2 diabetes mellitus with peripheral neuropathy ([facility]) Essential hypertension ([facility]/HCC[facility] Unspecified essential hypertension Peripheral vascular disease ([facility]/HCC) Unspecified peripheral vascular disease End stage renal disease ([facility]) End stage renal disease Acquired hypothyroidism ([facility]) Unspecified hypothyroidism Type 2 diabetes mellitus with ESRD (end-stage renal disease) ([facility]) 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, with long-term current use of insulin ([facility]) Chronic kidney disease with end stage renal disease on dialysis due to type 2 diabetes mellitus ([facility]) Anxiety Anxiety state, unspecified Dependence on renal dialysis ([facility]) Renal dialysis status Pure hypercholesterolemia ([facility]) Pure hypercholesterolemia Long-term insulin use ([facility]) Hx of amputation of lesser toe, left (HCC) ([facility]) Class 3 severe obesity due to excess calories with serious comorbidity and body mass index (BMI) of 40.0 to 44.9 in adult ([facility]) Inguinal adenopathy Enlargement of lymph nodes Chronic venous insufficiency- Primary Unspecified venous (peripheral) insufficiency Lymphedema Other noninfectious lymphedema documented in this encounter [facility]* Diagnosis Obstructive sleep apnea syndrome- Primary Obstructive sleep apnea (adult) (pediatric) Type 2 diabetes with nephropathy ([facility]) Type 2 diabetes mellitus with peripheral neuropathy ([facility]) 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, with long-term current use of insulin ([facility]) Long-term insulin use ([facility] 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 ([facility] Essential hypertension ([facility] Unspecified essential hypertension Peripheral vascular disease ([facility] Unspecified peripheral vascular disease End stage renal disease ([facility]) End stage renal disease Type 2 diabetes mellitus with ESRD (end-stage renal disease) ([facility]) Acquired hypothyroidism ([facility] Unspecified hypothyroidism Dependence on renal dialysis ([facility]) Renal dialysis status Pure hypercholesterolemia ([facility]) Pure hypercholesterolemia Chronic maxillary sinusitis Class 3 severe obesity due to excess calories with serious comorbidity and body mass index (BMI) of 45.0 to 49.9 in adult ([facility]) Adrenal nodule ([facility]) Benign neoplasm of adrenal gland Anxiety Anxiety state, unspecified Hx of amputation of lesser toe, left (HCC) ([facility]) Obstructive sleep apnea syndrome- Primary Obstructive sleep apnea (adult) (pediatric) Primary insomnia Persistent disorder of initiating or maintaining sleep 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 ([facility]) Type 2 diabetes mellitus with peripheral neuropathy ([facility] Essential hypertension ([facility] [facility]) Unspecified essential hypertension Peripheral vascular disease ([facility]) Unspecified peripheral vascular disease End stage renal disease ([facility]) End stage renal disease Acquired hypothyroidism ([facility]) Unspecified hypothyroidism Type 2 diabetes mellitus with ESRD (end-stage renal disease) ([facility]) 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, with long-term current use of insulin ([facility]) Chronic kidney disease with end stage renal disease on dialysis due to type 2 diabetes mellitus ([facility]) Dependence on renal dialysis ([facility]) Renal dialysis status Anxiety Anxiety state, unspecified Pure hypercholesterolemia ([facility]) Pure hypercholesterolemia Long-term insulin use ([facility]) Hx of amputation of lesser toe, left (HCC) ([facility]) Other iron deficiency anemia 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 classified elsewhere ([facility]) Non-pressure chronic ulcer of other part of right foot with unspecified severity ([facility]) Type 2 diabetes mellitus with foot ulcer, with long-term current use of insulin ([facility]) Class 3 severe obesity due to excess calories with serious comorbidity and body mass index (BMI) of 40.0 to 44.9 in adult ([facility]) Type 2 diabetes mellitus with peripheral neuropathy ([facility])- Primary Anxiety Anxiety state, unspecified Obstructive sleep apnea syndrome- Primary Obstructive sleep apnea (adult) (pediatric) 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 ([facility]) Type 2 diabetes mellitus with peripheral neuropathy ([facility] Essential hypertension ([facility] Unspecified essential hypertension Peripheral vascular disease ([facility] Unspecified peripheral vascular disease End stage renal disease ([facility]) End stage renal disease Acquired hypothyroidism ([facility]) Unspecified hypothyroidism Type 2 diabetes mellitus with ESRD (end-stage renal disease) ([facility]) 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, with long-term current use of insulin ([facility]) Chronic kidney disease with end stage renal disease on dialysis due to type 2 diabetes mellitus (CMS/HCC) Anxiety Anxiety state, unspecified Dependence on renal dialysis (CMS/HCC) Renal dialysis status Pure hypercholesterolemia (CMS/HCC) Pure hypercholesterolemia Long-term insulin use (CMS/HCC) Hx of amputation of lesser toe, left (HCC) (CMS/HCC) Class 3 severe obesity due to excess calories with serious comorbidity and body mass index (BMI) of 40.0 to 44.9 in adult (CMS/[facility]) Inguinal adenopathy Enlargement of lymph nodes Ulcer of right heel and midfoot with fat layer exposed (CMS/HCC)- Primary Ulcer of right foot, limited to breakdown of skin (CMS/HCC) Type 2 diabetes mellitus with peripheral neuropathy ([facility]) Neuropathy Mononeuritis of unspecified site documented in this encounter [facility]* Diagnosis Obstructive sleep apnea syndrome- Primary Obstructive sleep apnea (adult) (pediatric) Type 2 diabetes with nephropathy (CMS/[facility]) Type 2 diabetes mellitus with peripheral neuropathy ([facility]) 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, with long-term current use of insulin (CMS/HCC) Long-term insulin use ([facility]) 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 (CMS/[facility]) Essential hypertension (CMS/HCC) Unspecified essential hypertension Peripheral vascular disease (CMS/HCC) Unspecified peripheral vascular disease End stage renal disease (CMS/HCC) End stage renal disease Type 2 diabetes mellitus with ESRD (end-stage renal disease) (CMS/[facility]) Acquired hypothyroidism (CMS/[facility]) Unspecified hypothyroidism Dependence on renal dialysis (CMS/[facility]) Renal dialysis status Pure hypercholesterolemia (CMS/HCC) Pure hypercholesterolemia Chronic maxillary sinusitis Class 3 severe obesity due to excess calories with serious comorbidity and body mass index (BMI) of 45.0 to 49.9 in adult (CMS/HCC) Adrenal nodule (CMS/HCC) Benign neoplasm of adrenal gland Anxiety Anxiety state, unspecified Hx of amputation of lesser toe, left (HCC) (CMS/[facility]) Obstructive sleep apnea syndrome- Primary Obstructive sleep apnea (adult) (pediatric) Primary insomnia Persistent disorder of initiating or maintaining sleep 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 (CMS/HCC) Type 2 diabetes mellitus with peripheral neuropathy (CMS/HCC) Essential hypertension (CMS/HCC) Unspecified essential hypertension Peripheral vascular disease (CMS/HCC) Unspecified peripheral vascular disease End stage renal disease ([facility]) End stage renal disease Acquired hypothyroidism ([facility]) Unspecified hypothyroidism Type 2 diabetes mellitus with ESRD (end-stage renal disease) ([facility]) 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, with long-term current use of insulin ([facility]) Chronic kidney disease with end stage renal disease on dialysis due to type 2 diabetes mellitus ([facility]) Dependence on renal dialysis ([facility]) Renal dialysis status Anxiety Anxiety state, unspecified Pure hypercholesterolemia ([facility]) Pure hypercholesterolemia Long-term insulin use ([facility]) Hx of amputation of lesser toe, left (HCC) ([facility]) Other iron deficiency anemia 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 classified elsewhere ([facility]) Non-pressure chronic ulcer of other part of right foot with unspecified severity ([facility]) Type 2 diabetes mellitus with foot ulcer, with long-term current use of insulin ([facility]) Class 3 severe obesity due to excess calories with serious comorbidity and body mass index (BMI) of 40.0 to 44.9 in adult ([facility]) Type 2 diabetes mellitus with peripheral neuropathy ([facility])- Primary Anxiety Anxiety state, unspecified Obstructive sleep apnea syndrome- Primary Obstructive sleep apnea (adult) (pediatric) 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 ([facility]) Type 2 diabetes mellitus with peripheral neuropathy ([facility] Essential hypertension ([facility] Unspecified essential hypertension Peripheral vascular disease ([facility] Unspecified peripheral vascular disease End stage renal disease ([facility]) End stage renal disease Acquired hypothyroidism ([facility]) Unspecified hypothyroidism Type 2 diabetes mellitus with ESRD (end-stage renal disease) ([facility]) 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, with long-term current use of insulin ([facility]) Chronic kidney disease with end stage renal disease on dialysis due to type 2 diabetes mellitus ([facility]) Anxiety Anxiety state, unspecified Dependence on renal dialysis ([facility]) Renal dialysis status Pure hypercholesterolemia ([facility]) Pure hypercholesterolemia Long-term insulin use ([facility]) Hx of amputation of lesser toe, left (HCC) ([facility]) Class 3 severe obesity due to excess calories with serious comorbidity and body mass index (BMI) of 40.0 to 44.9 in adult (CMS/HCC) Inguinal adenopathy Enlargement of lymph nodes Lymphedema- Primary Other noninfectious lymphedema End stage renal disease (CMS/HCC) End stage renal disease Venous stasis dermatitis documented in this encounter [facility]* Diagnosis Obstructive sleep apnea syndrome- Primary Obstructive sleep apnea (adult) (pediatric) Type 2 diabetes with nephropathy (CMS/HCC) Type 2 diabetes mellitus with peripheral neuropathy ([facility]/HCC) 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, with long-term current use of insulin (CMS/HCC) Long-term insulin use ([facility]) 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 (CMS/HCC) Essential hypertension ([facility]/HCC) Unspecified essential hypertension Peripheral vascular disease ([facility]/HCC) Unspecified peripheral vascular disease End stage renal disease ([facility]/HCC) End stage renal disease Type 2 diabetes mellitus with ESRD (end-stage renal disease) ([facility]) Acquired hypothyroidism ([facility]) Unspecified hypothyroidism Dependence on renal dialysis ([facility]) Renal dialysis status Pure hypercholesterolemia ([facility]/HCC) Pure hypercholesterolemia Chronic maxillary sinusitis Class 3 severe obesity due to excess calories with serious comorbidity and body mass index (BMI) of 45.0 to 49.9 in adult ([facility]/HCC) Adrenal nodule ([facility]) Benign neoplasm of adrenal gland Anxiety Anxiety state, unspecified Hx of amputation of lesser toe, left ([facility]) ([facility]) Obstructive sleep apnea syndrome- Primary Obstructive sleep apnea (adult) (pediatric) Primary insomnia Persistent disorder of initiating or maintaining sleep 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 ([facility]/HCC) Type 2 diabetes mellitus with peripheral neuropathy ([facility]/HCC) Essential hypertension ([facility]/HCC) Unspecified essential hypertension Peripheral vascular disease ([facility]/HCC) Unspecified peripheral vascular disease End stage renal disease (CMS/HCC) End stage renal disease Acquired hypothyroidism ([facility]) Unspecified hypothyroidism Type 2 diabetes mellitus with ESRD (end-stage renal disease) ([facility]) 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, with long-term current use of insulin ([facility]) Chronic kidney disease with end stage renal disease on dialysis due to type 2 diabetes mellitus (CMS/[facility]) Dependence on renal dialysis ([facility]) Renal dialysis status Anxiety Anxiety state, unspecified Pure hypercholesterolemia (CMS/HCC) Pure hypercholesterolemia Long-term insulin use ([facility]) Hx of amputation of lesser toe, left (HCC) ([facility]) Other iron deficiency anemia 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 classified elsewhere ([facility]) Non-pressure chronic ulcer of other part of right foot with unspecified severity ([facility]) Type 2 diabetes mellitus with foot ulcer, with long-term current use of insulin ([facility]) Class 3 severe obesity due to excess calories with serious comorbidity and body mass index (BMI) of 40.0 to 44.9 in adult ([facility]) Type 2 diabetes mellitus with peripheral neuropathy ([facility])- Primary Anxiety Anxiety state, unspecified Obstructive sleep apnea syndrome- Primary Obstructive sleep apnea (adult) (pediatric) 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 ([facility]) Type 2 diabetes mellitus with peripheral neuropathy ([facility] Essential hypertension ([facility] Unspecified essential hypertension Peripheral vascular disease ([facility] Unspecified peripheral vascular disease End stage renal disease ([facility]) End stage renal disease Acquired hypothyroidism ([facility]) Unspecified hypothyroidism Type 2 diabetes mellitus with ESRD (end-stage renal disease) ([facility]) 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, with long-term current use of insulin ([facility]) Chronic kidney disease with end stage renal disease on dialysis due to type 2 diabetes mellitus ([facility]) Anxiety Anxiety state, unspecified Dependence on renal dialysis ([facility]) Renal dialysis status Pure hypercholesterolemia ([facility]) Pure hypercholesterolemia Long-term insulin use ([facility]) Hx of amputation of lesser toe, left (HCC) ([facility]) Class 3 severe obesity due to excess calories with serious comorbidity and body mass index (BMI) of 40.0 to 44.9 in adult ([facility]) Inguinal adenopathy Enlargement of lymph nodes Bilious vomiting with nausea- Primary Type 2 diabetes mellitus with peripheral neuropathy ([facility]) documented in this encounter [facility]* Diagnosis Obstructive sleep apnea syndrome- Primary Obstructive sleep apnea (adult) (pediatric) Type 2 diabetes with nephropathy ([facility]) Type 2 diabetes mellitus with peripheral neuropathy ([facility]) 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, with long-term current use of insulin ([facility]) Long-term insulin use ([facility] 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 ([facility] Essential hypertension ([facility] Unspecified essential hypertension Peripheral vascular disease ([facility] Unspecified peripheral vascular disease End stage renal disease (CMS/[facility]) End stage renal disease Type 2 diabetes mellitus with ESRD (end-stage renal disease) (CMS/[facility]) Acquired hypothyroidism (CMS/[facility]) Unspecified hypothyroidism Dependence on renal dialysis (CMS/[facility]) Renal dialysis status Pure hypercholesterolemia ([facility]) Pure hypercholesterolemia Chronic maxillary sinusitis Class 3 severe obesity due to excess calories with serious comorbidity and body mass index (BMI) of 45.0 to 49.9 in adult ([facility]) Adrenal nodule ([facility]) Benign neoplasm of adrenal gland Anxiety Anxiety state, unspecified Hx of amputation of lesser toe, left (HCC) ([facility]) Obstructive sleep apnea syndrome- Primary Obstructive sleep apnea (adult) (pediatric) Primary insomnia Persistent disorder of initiating or maintaining sleep 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 ([facility] Type 2 diabetes mellitus with peripheral neuropathy ([facility]) Essential hypertension ([facility] Unspecified essential hypertension Peripheral vascular disease ([facility] Unspecified peripheral vascular disease End stage renal disease ([facility]) End stage renal disease Acquired hypothyroidism ([facility]) Unspecified hypothyroidism Type 2 diabetes mellitus with ESRD (end-stage renal disease) ([facility]) 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, with long-term current use of insulin ([facility]) Chronic kidney disease with end stage renal disease on dialysis due to type 2 diabetes mellitus ([facility]) Dependence on renal dialysis ([facility]) Renal dialysis status Anxiety Anxiety state, unspecified Pure hypercholesterolemia (CMS/HCC) Pure hypercholesterolemia Long-term insulin use ([facility]) Hx of amputation of lesser toe, left (HCC) ([facility]) Other iron deficiency anemia 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 classified elsewhere ([facility]) Non-pressure chronic ulcer of other part of right foot with unspecified severity ([facility]) Type 2 diabetes mellitus with foot ulcer, with long-term current use of insulin ([facility]) Class 3 severe obesity due to excess calories with serious comorbidity and body mass index (BMI) of 40.0 to 44.9 in adult ([facility]) Type 2 diabetes mellitus with peripheral neuropathy [...] dialysis due to type 2 diabetes mellitus (CMS/HCC) Anxiety Anxiety state, unspecified Dependence on renal dialysis (CMS/HCC) Renal dialysis status Pure hypercholesterolemia (CMS/HCC) Pure hypercholesterolemia Long-term insulin use (CMS/HCC) Hx of amputation of lesser toe, left ([facility]) ([facility]) Class 3 severe obesity due to excess calories with serious comorbidity and body mass index (BMI) of 40.0 to 44.9 in adult (CMS/HCC) Inguinal adenopathy Enlargement of lymph nodes Bilious vomiting with nausea- Primary Type 2 diabetes mellitus with peripheral neuropathy (CMS/HCC) Neuropathy- Primary Mononeuritis of unspecified site Ulcer of right heel and midfoot with fat layer exposed (CMS/HCC) Ulcer of right foot, limited to breakdown of skin (CMS/HCC) Type 2 diabetes mellitus with peripheral neuropathy (CMS/HCC) Chronic kidney disease due to diabetes mellitus ([facility]/HCC) documented in this encounter [facility]Evaluation note* Diagnosis Obstructive sleep apnea syndrome- Primary Obstructive sleep apnea (adult) (pediatric) Type 2 diabetes with nephropathy (CMS/HCC) Type 2 diabetes mellitus with peripheral neuropathy (CMS/HCC) 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, with long-term current use of insulin (CMS/HCC) Long-term insulin use ([facility]/HCC) 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 (CMS/HCC) Essential hypertension (CMS/HCC) Unspecified essential hypertension Peripheral vascular disease (CMS/HCC) Unspecified peripheral vascular disease End stage renal disease (CMS/HCC) End stage renal disease Type 2 diabetes mellitus with ESRD (end-stage renal disease) ([facility]) Acquired hypothyroidism ([facility]) Unspecified hypothyroidism Dependence on renal dialysis ([facility]) Renal dialysis status Pure hypercholesterolemia ([facility]) Pure hypercholesterolemia Chronic maxillary sinusitis Class 3 severe obesity due to excess calories with serious comorbidity and body mass index (BMI) of 45.0 to 49.9 in adult Adrenal nodule ([facility]) Benign neoplasm of adrenal gland Anxiety Anxiety state, unspecified Hx of amputation of lesser toe, left (HCC) ([facility]) Obstructive sleep apnea syndrome- Primary Obstructive sleep apnea (adult) (pediatric) Primary insomnia Persistent disorder of initiating or maintaining sleep 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 ([facility]) Type 2 diabetes mellitus with peripheral neuropathy ([facility]) Essential hypertension ([facility]) Unspecified essential hypertension Peripheral vascular disease ([facility]) Unspecified peripheral vascular disease End stage renal disease ([facility]) End stage renal disease Acquired hypothyroidism ([facility]) Unspecified hypothyroidism Type 2 diabetes mellitus with ESRD (end-stage renal disease) ([facility]) 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, with long-term current use of insulin ([facility]) Chronic kidney disease with end stage renal disease on dialysis due to type 2 diabetes mellitus ([facility]) Dependence on renal dialysis ([facility]) Renal dialysis status Anxiety Anxiety state, unspecified Pure hypercholesterolemia ([facility]) Pure hypercholesterolemia Long-term insulin use ([facility]) Hx of amputation of lesser toe, left (HCC) ([facility]) Other iron deficiency anemia 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 classified elsewhere ([facility]) Non-pressure chronic ulcer of other part of right foot with unspecified severity ([facility]) Type 2 diabetes mellitus with foot ulcer, with long-term current use of insulin ([facility]) Class 3 severe obesity due to excess calories with serious comorbidity and body mass index (BMI) of 40.0 to 44.9 in adult Type 2 diabetes mellitus with peripheral neuropathy ([facility])- Primary Anxiety Anxiety state, unspecified Obstructive sleep apnea syndrome- Primary Obstructive sleep apnea (adult) (pediatric) 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 ([facility]) Type 2 diabetes mellitus with peripheral neuropathy (CMS/[facility]) Essential hypertension ([facility]) Unspecified essential hypertension Peripheral vascular disease (CMS/HCC) Unspecified peripheral vascular disease End stage renal disease (CMS/HCC) End stage renal disease Acquired hypothyroidism ([facility]/HCC) Unspecified hypothyroidism Type 2 diabetes mellitus with ESRD (end-stage renal disease) ([facility]) 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, with long-term current use of insulin ([facility]) Chronic kidney disease with end stage renal disease on dialysis due to type 2 diabetes mellitus ([facility]) Anxiety Anxiety state, unspecified Dependence on renal dialysis (CMS/[facility]) Renal dialysis status Pure hypercholesterolemia (CMS/HCC) Pure hypercholesterolemia Long-term insulin use ([facility]) Hx of amputation of lesser toe, left (HCC) ([facility]) Class 3 severe obesity due to excess calories with serious comorbidity and body mass index (BMI) of 40.0 to 44.9 in adult Inguinal adenopathy Enlargement of lymph nodes Bilious vomiting with nausea- Primary Type 2 diabetes mellitus with peripheral neuropathy ([facility]) 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 ([facility])- Primary Type 2 diabetes mellitus with peripheral neuropathy ([facility]) Obstructive sleep apnea syndrome Obstructive sleep apnea (adult) (pediatric) Essential hypertension ([facility]) Unspecified essential hypertension Peripheral vascular disease ([facility]) Unspecified peripheral vascular disease End stage renal disease ([facility]) End stage renal disease Type 2 diabetes mellitus with foot ulcer, with long-term current use of insulin ([facility]) Acquired hypothyroidism ([facility]) Unspecified hypothyroidism 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, with long-term current use of insulin ([facility]) Class 3 severe obesity due to excess calories with serious comorbidity and body mass index (BMI) of 40.0 to 44.9 in adult Chronic kidney disease with end stage renal disease on dialysis due to type 2 diabetes mellitus ([facility]) Anxiety Anxiety state, unspecified Dependence on renal dialysis ([facility]) Renal dialysis status Pure hypercholesterolemia ([facility]) Pure hypercholesterolemia Long-term insulin use ([facility]) Hx of amputation of lesser toe, left (HCC) ([facility]) [facility] Diagnosis Idiopathic peripheral neuropathy- Primary Unspecified hereditary and idiopathic peripheral neuropathy End stage renal disease (HCC) End stage renal disease Hyperkalemia Hyperpotassemia Idiopathic peripheral neuropathy Unspecified hereditary and idiopathic peripheral neuropathy [facility] Diagnosis Onset Date Resolution Status Admit Date Diabetic peripheral neuropathy acute February 13, 2025 8:20am Lumbar radiculopathy acute February 13, 2025 8:20am Other chronic pain acute February 042024 8:20am [facility] Work Phone: Evaluation note* Diagnosis Obstructive [...] diabetes mellitus with ESRD (end-stage renal disease) ([facility]) Acquired hypothyroidism Unspecified hypothyroidism Dependence on renal dialysis Renal dialysis status Pure hypercholesterolemia Pure hypercholesterolemia Chronic maxillary sinusitis Class 3 severe obesity due to excess calories with serious comorbidity and body mass index (BMI) of 45.0 to 49.9 in adult (CMS-HCC) Adrenal nodule (HCC) Benign neoplasm of adrenal gland Anxiety Anxiety state, unspecified Hx of amputation of lesser toe, left ([facility]-HCC) Obstructive sleep apnea syndrome- Primary Obstructive sleep [...] anemia 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 classified elsewhere ([facility]) Non-pressure chronic ulcer of other part of right foot with unspecified severity ([facility]) Type 2 diabetes mellitus with foot ulcer, with long-term current use of insulin ([facility]) Class 3 severe obesity due to excess calories with serious comorbidity and body mass index (BMI) of 40.0 to 44.9 in adult ([facility]) Type 2 diabetes mellitus with peripheral neuropathy ([facility])- Primary Anxiety Anxiety state, unspecified Obstructive sleep apnea syndrome- Primary Obstructive sleep apnea (adult) (pediatric) 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 ([facility]) Type 2 diabetes mellitus with peripheral neuropathy ([facility]) Essential hypertension Unspecified essential hypertension Peripheral vascular disease Unspecified peripheral vascular disease End stage renal disease ([facility]) End stage renal disease Acquired hypothyroidism Unspecified hypothyroidism Type 2 diabetes mellitus with ESRD (end-stage renal disease) ([facility]) 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, with long-term current use of insulin ([facility]) Chronic kidney disease with end stage renal disease on dialysis due to type 2 diabetes mellitus ([facility]) Anxiety Anxiety state, unspecified Dependence on renal dialysis Renal dialysis status Pure hypercholesterolemia Pure hypercholesterolemia Long-term insulin use ([facility]) Hx of amputation of lesser toe, left ([facility]) Class 3 severe obesity due to excess calories with serious comorbidity and body mass index (BMI) of 40.0 to 44.9 in adult ([facility]) Inguinal adenopathy Enlargement of lymph nodes Bilious vomiting with nausea- Primary Type 2 diabetes mellitus with peripheral neuropathy ([facility]) 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 ([facility])- Primary Type 2 diabetes mellitus with peripheral neuropathy ([facility]) Obstructive sleep apnea syndrome Obstructive sleep apnea (adult) (pediatric) Essential hypertension Unspecified essential hypertension Peripheral vascular disease Unspecified peripheral vascular disease End stage renal disease ([facility]) End stage renal disease Type 2 diabetes mellitus with foot ulcer, with long-term current use of insulin ([facility]) Acquired hypothyroidism Unspecified hypothyroidism 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, with long-term current use of insulin ([facility]) Class 3 severe obesity due to excess calories with serious comorbidity and body mass index (BMI) of 40.0 to 44.9 in adult ([facility]) Chronic kidney disease with end stage renal disease on dialysis due to type 2 diabetes mellitus ([facility]) Anxiety Anxiety state, unspecified Dependence on renal dialysis Renal dialysis status Pure hypercholesterolemia Pure hypercholesterolemia Long-term insulin use (HCC) Hx of amputation of lesser toe, left ([facility]-HCC) 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) [facility] Diagnosis Spinal stenosis of lumbar region with neurogenic claudication- Primary Diabetic peripheral neuropathy (CMS-HCC) Type II or unspecified type diabetes mellitus with neurological manifestations, not stated as uncontrolled Spinal stenosis of lumbar region with neurogenic claudication- Primary Spinal stenosis of lumbar region with neurogenic claudication documented [facility] Author Chintan Brewster [facility] November 04, 2022 8:11pm Note Date/Time November 04, 2022 8:11 pm [facility] [address] [place] [address] Hospitalist H&P Signed Patient: Evans Forte MR#: [id number] : 1970 Acct:[id number] Age/Sex: 52 / M Adm Date: 3 Loc: ER Room: Type: [facility] ER Attending Dr: Copies to: DO Delano Dhillon MD Michael R. Frings, ~ HPI DATE OF EXAMINATION: 11/04/22 CHIEF COMPLAINT: Abnormal labs HISTORY OF PRESENT ILLNESS: This patient is a 52-year-old male who presented to the emergency department earlier today with a chief complaint of abnormal labs at the recommendation of his supervisor [employer]. He is in preparation for peritoneal dialysis [...] protein. The patient was admitted to the [facility] floor for further evaluation and treatment after [...] % (Auto) 12.4 % (.) 11/04/22 15:11 Thomas % (Auto) 9.0 % (.) 11/04/22 15:11 Eos % (Auto) 2.7 % (.) 11/04/22 15:11 Baso % (Auto) 1.1 % (.) 11/04/22 15:11 Nucleat RBC Rel Count 0.0 /100 WBC (0-0.5) 11/04/22 15:11 Neut # (Auto) 9.1 x10E3/uL (1.8-7.7) H 11/04/22 15:11 Lymph # (Auto) 1.5 x10E3/uL (1.00-4.8) 11/04/22 15:11 Thomas # (Auto) 1.1 x10E3/uL (0.0-0.8) H 11/04/22 [...] pH 5.5 (5.0-9.0) 11/04/22 14:04 Ur Specific [place] 1.013 (1.001-1.030) 11/04/22 14:04 Urine Protein 300 [...] <Electronically signed by Chintan Brewster DO> 11/04/222010 [facility] Work Phone: History and physical note Author Buddy Murguia [facility] November 20, 2023 10:57pm Note Date/Time November 20, 2023 10: 38pm [facility] [address] [place] [address] Hospitalist H&P Signed Patient: Evans Forte MR#: [id number] : 1970 Acct:[id number] Age/Sex: 53 / M Adm Date: 4 Loc: Room: [address] [place] [address] Type: ADM IN Attending Dr: Buddy Murguia [...] negative unless noted below or in HPI [facility] Medical History (Updated 11/20/23 @ 22:54 by [...] 2 Surgical History History of cardiac catheterization [facility] History of orthopedic surgery right foot has [...] 19:00 Lymph % (Auto) N/A 11/20/23 19:00 Thomas % (Auto) N/A 11/20/23 19:00 Eos % (Auto) N/A 11/20/23 19:00 Baso % (Auto) N/A 11/20/23 19:00 Nucleat RBC Rel Count N/A 11/20/23 19:00 Neut # (Auto) N/A 11/20/23 19:00 Lymph # (Auto) N/A 11/20/23 19:00 Thomas # (Auto) N/A 11/20/23 19:00 Eos # [...] H 11/20/23 19:00 POC Glucose 111 mg/dl 11/20/23:24 Lactic Acid 1.7 mmol/L (0.5-2.2) 11/20/23 19:00 [...] (# of days): 3 Documented By: Buddy Murguia, 11/20/232236 Signed By: <Electronically signed by Buddy Murguia, DO> 11/20/[address] [facility] Work Phone: Hisnkwm general Narrative - Reported* Type Description Date [...] above Hospitalization History INFECTION IN LEFT FOOT [employer] Other Histelb general Narrative - Reported* Type Description Date Medical History ANEMIA Medical History STAGE 5 CHRONIC KIDN EY DISEASAE; UNDERGOING WORK UP FOR TRANSPLANT AT [facility] 2022 Medical History HYPERTENSION Medical History HYPERLIPIDEMIA Medical History HYPOTHYROIDISM Medical History PANCREATITIS X2 Medical History 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 Surgical History HEART CATH 09/2018 Surgical History Right foot surgery 12/2018 Surgical History Left foot surgery 2018 Hospitalization History WOUND ON LEG 02/07/17 Hospitalization History see above Hospitalization History INFECTION IN LEFT FOOT [employer] Other Hisdxvd general Narrative - Reported* Type Description Date Medical History ANEMIA Medical History STAGE 5 CHRONIC KIDN EY DISEASAE; UNDERGOING WORK UP FOR TRANSPLANT AT [facility] 2022 Medical History HYPERTENSION Medical History HYPERLIPIDEMIA Medical History HYPOTHYROIDISM Medical History PANCREATITIS X2 Medical History 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 Surgical History HEART CATH 09/2018 Surgical History Right foot surgery 12/2018 Surgical History Left foot surgery 2019 Surgical History pd cath creation Surgical History hd cath placement 09/29 Hospitalization History WOUND ON LEG 02/07/17 Hospitalization History see above Hospitalization History INFECTION IN LEFT FOOT [employer] Other Hospital Discharge instructions Additional Instructions Call your primary doctor later today for follow-up appointment next week You can take trazodone to help you with your sleep as needed, use the Ativan only as needed for anxiety [facility] worsening [facility] Work Phone: Hospital Discharge instructions Additional Instructions Bananas, rice, applesauce, toast to formed stool Follow-up with nephrology as planned on Wednesday Here if you develop any chest pain, shortness of breath, fevers, chills or any other concerns Trazodone to help you sleep as needed Zofran for nausea as needed Monitor your blood sugarsWayne Healthcare Main Campus Work Phone: Hospital Discharge instructionsAmbulatory Orders* DME [...] a prescription was provided. follow with your supervisor [employer] for training on peritoneal dialysis Follow-up with Dr. High in the [facility] Work Phone: Hospital Discharge instructions Additional Instructions [...] first post-op visit, call the office at [phone] anytime. We have an answering service which will contact the doctor at anytime. -Follow-[facility] as scheduledWay[facility] Work Phone: Hospital Discharge instructions Additional Instructions [...] first post-op visit, call the office at [phone] anytime. We have an answering service which will contact the doctor at anytime. -[facility] Work Phone: Hospital Discharge instructions Additional Instructions If your symptoms return/worsen or you develop any further concerns or symptoms please see your doctor or return to the emergency department immediately.[facility] Work Phone: Hospital Discharge instructions Additional Instructions Follow-up with your primary care doctor Return to ED for present symptoms or concernsWay[facility] Work Phone: Hospital Discharge instructions Additional Instructions [...] sure you are taking medications as prescribed. [facility] Work Phone: Hospital Discharge instructions Additional Instructions Call pain management tomorrow for additional refills Return to ER as neededWay[facility] Work Phone: Progress note Author Chintan Brewster [facility] November 05, 2022 3:55pm Note Date/Time November 05, 2022 3:55 pm [facility] [address] [place] [address] Hospitalist Progress Note Signed Patient: Evans Forte MR#: [id number] : 1970 Acct:[id number] Age/Sex: 52 / M Adm Date: 3 Loc: Room: [address] [place] [address] Type: ADM IN Attending Dr: Chintan Brewster [...] Dose Route Start Last Admin Trade Name Joseq PRN Reason Stop Dose Admin Ascorbic Acid 500 mg 11/05/22 09:00 11/05/22 08:49 Ascorbic Acid 500 Mg Tablet PO 11/05/23 08:59 500 mg DAILY REYNOLD Administration Atorvastatin Calcium 20 mg 11/05/22 09:00 11/05/22 08:50 Atorvastatin 20 Mg Tablet PO 11/05/23 08:59 20 mg DAILY REYNOLD Administration Carvedilol 25 mg 11/04/22 21:00 11/05/22 08:50 Carvedilol 25 Mg Tablet PO 11/04/23 20:59 25 mg BID REYNOLD Administration Emollient Ointment 1 applic 11/05/22 10:00 Petrolatum,White 99 Gm Oint...G. TOPICAL 11/05/23 09:59 DAILY REYNOLD Fenofibrate 145 mg 11/05/22 09:00 11/05/22 08:48 Fenofibrate Nanocrystallized 145 Mg Tablet PO 11/05/23 08:59 145 mg DAILY REYNOLD Administration Ferrous Sulfate 324 mg 11/05/22 09:00 11/05/22 08:52 Ferrous Sulfate 324 Mg Tablet. PO 11/05/23 08:59 324 mg DAILY REYNOLD Administration Folic Acid 1 tab 11/05/22 09:00 11/05/22 08:48 Cyanocobalamin/Fa/Pyridoxine 1 Tab Tablet PO 11/05/23 08:59 1 tab DAILY REYNOLD Administration Furosemide 80 mg 11/06/22 08:00 Furosemide 80 Mg Tablet PO 11/06/23 07:59 DAILY.8A REYNOLD Heparin Sodium (Porcine) 5,000 unit 11/05/22 14:00 11/05/22 14:48 Heparin 5,000 Unit/Ml Vial SUBCUT 11/05/23 13:59 5,000 unit Q8HR REYNOLD Administration Hydralazine HCl 10 mg 11/04/22 23:31 11/04/22 23:40 Hydralazine 20 Mg/Ml Vial IV-PUSH 11/04/23 23:30 10 mg Q4H PRN Administration if SBP > 185 Hydralazine HCl 50 mg 11/05/22 06:00 11/05/22 14:49 Hydralazine 50 Mg Tablet PO 11/05/23 05:59 50 mg TID REYNOLD Administration Insulin Human Regular 45 unit 11/05/22 17:00 Insulin Regular U-500, Human 1,500 Unit/3 Ml Insuln.Pen SUBCUT 11/05/23 16:59 DAILY@1700 [facility] Insulin Human Regular 70 unit 11/05/22 06:00 11/05/22 08:05 Insulin Regular U-500, Human 1,500 Unit/3 Ml Insuln.Pen SUBCUT 11/05/23 05:59 70 unit DAILY@0600 REYNOLD Administration Labetalol HCl 10 mg 11/04/22 16:32 11/04/22 21:41 Labetalol 100 Mg/20 Ml Vial IV-PUSH 11/04/23 16:31 10 mg Q10M PRN Administration Hypertension Levothyroxine Sodium 100 mcg 11/05/22 06:30 11/05/22 06:10 Levothyroxine 100 Mcg Tablet PO 11/05/23 06:29 100 mcg DAILY@0630 REYNOLD Administration Nifedipine 90 mg 11/05/22 09:00 11/05/22 08:52 Nifedipine Er.24hr 90 Mg Tab.Er.24 PO 11/05/23 08:59 90 mg DAILY REYNOLD Administration Pregabalin 50 mg 11/05/22 09:00 11/05/22 08:52 Pregabalin 50 Mg Capsule PO 08/29/23 08:59 50 mg DAILY REYNOLD Administration Sodium Bicarbonate 1,300 mg 11/05/22 14:40 Sodium Bicarbonate 650 Mg Tablet PO 11/05/23 10:29 BID REYNOLD Sodium Chloride 0 ml 11/04/22 13:54 Sodium Chloride 0.9 % 10 Ml Syringe IV-PUSH 11/04/23 13:53 PRN PRN Flush Vitamin A 3,000 mcg 11/05/22 09:00 11/05/22 08:52 Vitamin A 3,000 Mcg (10,000 Units) Capsule PO 11/05/23 08:59 3,000 mcg DAILY REYNOLD Administration Vitamin D 50 mcg 11/05/22 09:00 11/05/22 08:50 Cholecalciferol 25 Mcg (1,000 Units) Tablet PO 11/05/23 08:59 50 mcg DAILY REYNOLD Administration Zinc Gluconate 50 mg 11/05/22 09:00 11/05/22 08:52 Zinc Gluconate 50 Mg Tablet PO 11/05/23 08:59 50 mg DAILY REYNOLD Administration Documented By: Chintan Brewster DO 11/05/22 15 54 Signed By: <Electronically signed by Chintan Brewster DO> 11/05/[address] [facility] Work Phone: Progress note Author Yocasta Villalba [facility] November 06, 2022 2:57pm Note Date/Time November 06, 2022 2:57 pm [facility] [address] [place] [address] Nephrology Progress Note Signed Patient: Evans Forte MR#: [id number] : 1970 Acct:[id number] Age/Sex: 52 / M Adm Date: 3 Loc: Room: [address] [place] [address] Type: ADM IN Attending Dr: Chintan Brewster DO Copies to: ~ Date of Service: 11/06/2022 Subjective Subjective Narrative: This is a 52-year-old male patient with a past sickle history of chronic kidney disease stage V from diabetic nephropathy, hypertension, morbid obesity, anemia of renal disease, neuropathy. 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 Waters for hyperkalemia with potassium 5.9 [...] Tablet) 500 mg PO DAILY [facility] Stop: 11/05/23 08:59 Last Admin: 11/06/22 10:32 Dose: Not Given Atorvastatin Calcium (Atorvastatin 20 Mg Tablet) 20 mg PO DAILY [facility] Stop: 11/05/23 08:59 Last Admin: 11/06/22 10:32 Dose: Not Given Carvedilol (Carvedilol 25 Mg Tablet) 25 mg PO BID [facility] Stop: 11/04/23 20:59 Last Admin: 11/06/22 09:05 Dose: 25 mg Docusate Sodium (Docusate 100 Mg Capsule) 100 mg PO BID [facility] [facility] Stop: 11/06/23 20:59 Droperidol (Droperidol 5 Mg/2 Ml Vial) 1.25 mg IV-PUSH ONCE PRN PRN Reason: Nausea And Vomiting Stop: 11/06/22 16:28 Emollient Ointment (Petrolatum,White 99 Gm Oint...G.) 1 applic TOPICAL DAILY [facility] Stop: 11/05/23 09:59 Last Admin: 11/06/22 09:05 Dose: 1 applic Fenofibrate (Fenofibrate Nanocrystallized 145 Mg Tablet) 145 mg PO DAILY [facility] Stop: 11/05/23 08:59 Last Admin: 11/05/22 08:48 Dose: 145 mg Ferrous Sulfate (Ferrous Sulfate 324 Mg Tablet.Dr) 324 mg PO DAILY [facility] Stop: 11/05/23 08:59 Last Admin: 11/06/22 10:32 Dose: Not Given Folic Acid (Cyanocobalamin/Fa/Pyridoxine 1 Tab Tablet) 1 tab PO DAILY [facility] Stop: 11/05/23 08:59 Last Admin: 11/06/22 10:32 Dose: Not Given Heparin Sodium (Porcine) (Heparin 5,000 Unit/Ml Vial) 5,000 unit SUBCUT Q8HR [facility] Stop: 11/05/23 13:59 Last Admin: 11/06/22 14:15 Dose: Not Given Hydralazine HCl (Hydralazine 20 Mg/Ml Vial) 10 mg IV-PUSH Q4H PRN PRN Reason: if SBP > 185 Stop: 11/04/23 23:30 Last Admin: 11/04/22 23:40 Dose: 10 mg Hydralazine HCl (Hydralazine 50 Mg Tablet) 50 mg PO TID [facility] Stop: 11/05/23 05:59 Last Admin: 11/06/22 10:32 Dose: Not Given Sodium Chloride (0.9% Sodium Chloride 500 Ml) 500 mls @ 20 mls/hr IV ONCE ONE Stop: 11/07/22 10:00 Last Admin: 11/06/22 10:37 Dose: 20 mls/hr Ferric Sodium Gluconate Complex 250 mg/ Sodium Chloride 270 mls @ 135 mls/hr IVQAM [facility] Stop: 11/09/22 09:01 Last Infusion: 11/06/22 13:03 Dose: Infused Insulin Human Regular (Insulin Regular U-500, Human 1,500 Unit/3 Ml Insuln.Pen) 45 unit SUBCUT DAILY@1700 [facility] Stop: 11/05/23 16:59 Last Admin: 11/05/22 18:24 Dose: 45 unit Insulin Human Regular (Insulin Regular U-500, Human 1,500 Unit/3 Ml Insuln.Pen) 70 unit SUBCUT DAILY@0600 [facility] Stop: 11/05/23 05:59 Last Admin: 11/06/22 06:25 [...] Tablet) 100 mcg PO DAILY@0630 [facility] Stop: 11/05/23 06:29 Last Admin: 11/06/22 06:38 Dose: Not Given Lidocaine HCl (Lidocaine 1% 20 Ml Vial) 0.1 ml INTRADERMA PREOP PRN PRN Reason: Venipuncture Stop: 11/06/22 15:01 Lidocaine HCl (Lidocaine 1% 20 Ml Vial) 0.1 ml INTRADERMA PREOP PRN PRN Reason: Venipuncture Stop: 11/06/22 18:34 Nifedipine (Nifedipine Er.24hr 90 Mg Tab.Er.24) 90 mg PO DAILY [facility] Stop: 11/05/23 08:59 Last Admin: 11/06/22 10:32 Dose: Not Given Ondansetron HCl (Ondansetron 4 Mg/2 Ml Vial) 4 mg IV-PUSH ONCE PRN PRN Reason: Nausea/Vomiting Stop: 11/06/22 16:28 Pregabalin (Pregabalin 50 Mg Capsule) 50 mg PO DAILY [facility] Stop: 05/04/23 08:59 Last Admin: 11/06/22 10:32 Dose: Not Given Sodium Bicarbonate (Sodium Bicarbonate 650 Mg Tablet) 1,300 mg PO BID [facility] Stop: 11/05/23 10:29 Last Admin: 11/06/22 10:32 Dose: Not Given Sodium Chloride (Sodium Chloride 0.9 % 10 Ml Syringe) 0 ml IV-PUSH PRN PRN PRN Reason: Flush Stop: 11/04/23 13:53 Sodium Zirconium Cyclosilicate 10 gm/ Sodium Zirconium Cyclosilicate 5 gm 15 gmPO DAILY [facility] Stop: 11/06/23 10:29 Vitamin A (Vitamin A 3,000 Mcg (10,000 Units) Capsule) 3,000 mcg PO DAILY [facility] Stop: 11/05/23 08:59 Last Admin: 11/06/22 10:32 Dose: Not Given Vitamin D (Cholecalciferol 25 Mcg (1,000 Units) Tablet) 50 mcg PO DAILY [facility] Stop: 11/05/23 08:59 Last Admin: 11/06/22 10:32 Dose: Not Given Zinc Gluconate (Zinc Gluconate 50 Mg Tablet) 50 mg PO DAILY [facility] Stop: 11/05/23 08:59 Last Admin: 11/06/22 10:32 [...] a.m. Documented By: Yocasta Villalba MD 11/06/22 8189 Signed By: <Electronically signed by Yocasta Villalba MD> 11/06/[address] [facility] Work Phone: Progress note Author Chintan Brewster [facility] November 06, 2022 5:26pm Note Date/Time November 06, 2022 5:26 pm [facility] [address] [place], [place] [id number] Hospitalist Progress Note Signed Patient: Evans Forte MR#: [id number] : 1970 Acct:[id number] Age/Sex: 52 / M Adm Date: 3 Loc: Room: [address] [place] [address] Type: ADM IN Attending Dr: Chintan Brewster [...] Name Rachel PRN Reason Stop Dose Admin Hydrocodone Bitart/Acetaminophen 1 tab 11/06/22 14:34 Hydrocodone/Acetaminophen 5-325 Mg Tablet PO Q4H PRN Pain Hydrocodone Bitart/Acetaminophen 2 tab 11/06/22 14:34 Hydrocodone/Acetaminophen 5-325 Mg Tablet PO Q4H PRN pain Ascorbic Acid 500 mg 11/05/22 09:00 11/06/22 10:32 Ascorbic Acid 500 Mg Tablet PO 11/05/23 08:59 Not Given DAILY [facility] Atorvastatin Calcium 20 mg 11/05/22 09:00 11/06/22 10:32 Atorvastatin 20 Mg Tablet PO 11/05/23 08:59 Not Given DAILY [facility] Carvedilol 25 mg 11/04/22 21:00 11/06/22 09:05 Carvedilol 25 Mg Tablet PO 11/04/23 20:59 25 mg BID [facility] Administration Docusate Sodium 100 mg 11/06/22 21:00 Docusate 100 Mg Capsule PO 11/06/23 20:59 BID [facility] Emollient Ointment 1 applic 11/05/22 10:00 11/06/22 09:05 Petrolatum,White 99 Gm Oint...G. TOPICAL 11/05/23 09:59 1 applic DAILY [facility] Administration Fenofibrate 145 mg 11/05/22 09:00 11/05/22 08:48 Fenofibrate Nanocrystallized 145 Mg Tablet PO 11/05/23 08:59 145 mg DAILY [facility] Administration Ferrous Sulfate 324 mg 11/05/22 09:00 11/06/22 10:32 Ferrous Sulfate 324 Mg Tablet.Dr PO 11/05/23 08:59 Not Given DAILY [facility] Folic Acid 1 tab 11/05/22 09:00 11/06/22 10:32 Cyanocobalamin/Fa/Pyridoxine 1 Tab Tablet PO 03/01/24 08:59 Not Given DAILY [facility] Heparin Sodium (Porcine) 5,000 unit 11/05/22 14:00 11/06/22 14:15 Heparin 5,000 Unit/Ml Vial SUBCUT 11/05/23 13:59 Not Given Q8HR [facility] Hydralazine HCl 10 mg 11/04/22 23:31 11/04/22 23:40 Hydralazine 20 Mg/Ml Vial IV-PUSH 11/04/23 23:30 10 mg Q4H PRN Administration if SBP > 185 Hydralazine HCl 50 mg 11/05/22 06:00 11/06/22 15:41 Hydralazine 50 Mg Tablet PO 11/05/23 05:59 50 mg TID [facility] Administration Sodium Chloride 500 mls @ 20 mls/hr 11/06/22 09:01 11/06/22 10:37 0.9% Sodium Chloride 500 Ml IV 11/07/22 10:00 20 mls/hr ONCE ONE Administration Ferric Sodium Gluconate 270 mls @ 135 mls/hr 11/06/22 10:20 11/06/22 13:03 Complex 250 mg/ Sodium IV 11/09/22 09:01 Infused Chloride QAM [facility] Infusion Insulin Human Regular 45 unit 11/05/22 17:00 11/06/22 17:13 Insulin Regular U-500, Human 1,500 Unit/3 Ml Insuln.Pen SUBCUT 11/05/23 16:59 45 unit DAILY@1700 [facility] Administration Insulin Human Regular 70 unit 11/05/22 06:00 11/06/22 06:25 Insulin Regular U-500, Human 1,500 Unit/3 Ml Insuln.Pen SUBCUT 11/05/23 05:59 Not Given DAILY@0600 [facility] Insulin Human Regular 0 unit 11/06/22 12:34 [...] Tablet PO 11/05/23 06:29 Not Given DAILY@0630 [facility] Lidocaine HCl 0.1 ml 11/06/22 12:34 Lidocaine 1% 20 Ml Vial INTRADERMA 11/06/22 18:34 PREOP PRN Venipuncture Lorazepam 0.5 mg 11/06/22 16:51 11/06/22 17:11 Lorazepam 2 Mg/Ml Vial IV-PUSH 05/05/23 16:50 0.5 mg Q4H PRN Administration Agitation Nifedipine 90 mg 11/05/22 09:00 11/06/22 10:32 Nifedipine Er.24hr 90 Mg Tab.Er.24 PO 11/05/23 08:59 Not Given DAILY [facility] Pregabalin 50 mg 11/05/22 09:00 11/06/22 10:32 Pregabalin 50 Mg Capsule PO 05/04/23 08:59 Not Given DAILY [facility] Sodium Bicarbonate 1,300 mg 11/05/22 14:40 11/06/22 10:32 Sodium Bicarbonate 650 Mg Tablet PO 11/05/23 10:29 Not Given BID [facility] Sodium Chloride 0 ml 11/04/22 13:54 Sodium [...] 10:29 15 gm Cyclosilicate 5 gm DAILY [facility] Administration Trazodone HCl 50 mg 11/06/22 21:00 Trazodone 50 Mg Tablet PO 11/06/23 20:59 QHS [facility] Vitamin A 3,000 mcg 11/05/22 09:00 11/06/22 10:32 Vitamin A 3,000 Mcg (10,000 Units) Capsule PO 11/05/23 08:59 Not Given DAILY [facility] Vitamin D 50 mcg 11/05/22 09:00 11/06/22 10:32 Cholecalciferol 25 Mcg (1,000 Units) Tablet PO 11/05/23 08:59 Not Given DAILY [facility] Zinc Gluconate 50 mg 11/05/22 09:00 11/06/22 10:32 Zinc Gluconate 50 Mg Tablet PO 11/05/23 08:59 Not Given DAILY [facility] Documented By: Chintan Brewster DO 11/06/22 17 24 Signed By: <Electronically signed by Chintan Brewster DO> 11/06/[address] [facility] Work Phone: Progress note Author Masoud Maria [facility] November 07, 2022 8:40am Note Date/Time November 07, 2022 8:40 am [facility] [address] [place] [address] General Surgery Progress Note Signed Patient: Evans Forte MR#: [id number] : 1970 Acct:[id number] Age/Sex: 52 / M Adm Date: 3 Loc: Room: [address] [place] [address] Type: ADM IN Attending Dr: Chintan Brewster [...] Tablet) 500 mg PO DAILY [facility] Stop: 11/05/23 08:59 Last Admin: 11/06/22 10:32 Dose: Not Given Atorvastatin Calcium (Atorvastatin 20 Mg Tablet) 20 mg PO DAILY [facility] Stop: 11/05/23 08:59 Last Admin: 11/06/22 10:32 Dose: Not Given Carvedilol (Carvedilol 25 Mg Tablet) 25 mg PO BID [facility] Stop: 11/04/23 20:59 Last Admin: 11/06/22 21:32 Dose: 25 mg Docusate Sodium (Docusate 100 Mg Capsule) 100 mg PO BID [facility] Stop: 11/06/23 20:59 Last Admin: 11/06/22 21:32 Dose: Not Given Emollient Ointment (Petrolatum,White 99 Gm Oint...G.) 1 applic TOPICAL DAILY [facility] Stop: 11/05/23 09:59 Last Admin: 11/07/22 05:55 Dose: 1 applic Fenofibrate (Fenofibrate Nanocrystallized 145 Mg Tablet) 145 mg PO DAILY [facility] Stop: 11/05/23 08:59 Last Admin: 11/05/22 08:48 Dose: 145 mg Ferrous Sulfate (Ferrous Sulfate 324 Mg Tablet.Dr) 324 mg PO DAILY [facility] Stop: 11/05/23 08:59 Last Admin: 11/06/22 10:32 Dose: Not Given Folic Acid (Cyanocobalamin/Fa/Pyridoxine 1 Tab Tablet) 1 tab PO DAILY [facility] Stop: 11/05/23 08:59 Last Admin: 11/06/22 10:32 Dose: Not Given Heparin Sodium (Porcine) (Heparin 5,000 Unit/Ml Vial) 5,000 unit SUBCUT Q8HR [facility] Stop: 11/05/23 13:59 Last Admin: 11/07/22 05:53 Dose: 5,000 unit Hydralazine HCl (Hydralazine 20 Mg/Ml Vial) 10 mg IV-PUSH Q4H PRN PRN Reason: if SBP > 185 Stop: 11/04/23 23:30 Last Admin: 11/04/22 23:40 Dose: 10 mg Hydralazine HCl (Hydralazine 50 Mg Tablet) 50 mg PO TID [facility] Stop: 11/05/23 05:59 Last Admin: 11/06/22 21:32 Dose: 50 mg Sodium Chloride (0.9% Sodium Chloride 500 Ml) 500 mls @ 20 mls/hr IV ONCE ONE Stop: 11/07/22 10:00 Last Admin: 11/06/22 10:37 Dose: 20 mls/hr Ferric Sodium Gluconate Complex 250 mg/ Sodium Chloride 270 mls @ 135 mls/hr IVQAM [facility] Stop: 11/09/22 09:01 Last Infusion: 11/06/22 13:03 Dose: Infused Insulin Human Regular (Insulin Regular U-500, Human 1,500 Unit/3 Ml Insuln.Pen) 45 unit SUBCUT DAILY@1700 [facility] Stop: 11/05/23 16:59 Last Admin: 11/06/22 17:13 Dose: 45 unit Insulin Human Regular (Insulin Regular U-500, Human 1,500 Unit/3 Ml Insuln.Pen) 70 unit SUBCUT DAILY@0600 [facility] Stop: 11/05/23 05:59 Last Admin: 11/07/22 05:54 Dose: 70 unit Labetalol HCl (Labetalol 100 Mg/20 Ml Vial) 10 mg IV-PUSH Q10M PRN PRN Reason: Hypertension Stop: 11/04/23 16:31 Last Admin: 11/04/22 21:41 Dose: 10 mg Levothyroxine Sodium (Levothyroxine 100 Mcg Tablet) 100 mcg PO DAILY@0630 [facility] Stop: 11/05/23 06:29 Last Admin: 11/07/22 05:55 Dose: 100 mcg Lorazepam (Lorazepam 2 Mg/Ml Vial) 0.5 mg IV-PUSH Q4H PRN PRN Reason: Agitation Stop: 05/05/23 16:50 Last Admin: 11/06/22 17:11 Dose: 0.5 mg Nifedipine (Nifedipine Er.24hr 90 Mg Tab.Er.24) 90 mg PO DAILY [facility] Stop: 11/05/23 08:59 Last Admin: 11/06/22 10:32 Dose: Not Given Pregabalin (Pregabalin 50 Mg Capsule) 50 mg PO DAILY [facility] Stop: 05/04/23 08:59 Last Admin: 11/06/22 10:32 Dose: Not Given Sodium Bicarbonate (Sodium Bicarbonate 650 Mg Tablet) 1,300 mg PO BID [facility] Stop: 11/05/23 10:29 Last Admin: 11/06/22 21:32 [...] Zirconium Cyclosilicate 5 gm 15 gmPO DAILY [facility] Stop: 11/06/23 10:29 Last Admin: 11/06/22 15:41 Dose: 15 gm Trazodone HCl (Trazodone 50 Mg Tablet) 50 mg PO QHS [facility] Stop: 11/06/23 20:59 Last Admin: 11/06/22 21:32 Dose: 50 mg Vitamin A (Vitamin A 3,000 Mcg (10,000 Units) Capsule) 3,000 mcg PO DAILY [facility] Stop: 11/05/23 08:59 Last Admin: 11/06/22 10:32 Dose: Not Given Vitamin D (Cholecalciferol 25 Mcg (1,000 Units) Tablet) 50 mcg PO DAILY [facility] Stop: 11/05/23 08:59 Last Admin: 11/06/22 10:32 Dose: Not Given Zinc Gluconate (Zinc Gluconate 50 Mg Tablet) 50 mg PO DAILY [facility] Stop: 11/05/23 08:59 Last Admin: 11/06/22 10:32 [...] % (Auto) 87.5, Lymph % (Auto) 5.8, Thomas % (Auto) 6.5, Eos % (Auto)0.1, Baso % (Auto) 0.1, Nucleat RBC Rel Count 0.1, Neut # (Auto) 10.9 H, Lymph #(Auto) 0.7 L, Thomas # (Auto) 0.8, Eos # (Auto) 0.0, [...] % (Auto) 74.7, Lymph % (Auto) 13.3, Thomas % (Auto) 9.0, Eos % (Auto) 2.5, Baso % (Auto) 0.5, Nucleat RBC Rel Count 0.1, Neut # (Auto) 10.0 H, Lymph # (Auto) 1.8, Thomas # (Auto) 1.2 H, Eos # (Auto) [...] kidney disease, unspecified Status: Acute Documented By: Msaoud Maria DO 11/07/22 08 38 Signed By: <Electronically signed by Masoud Maria DO> 11/07/[address] [facility] Work Phone: Progress note Author Yocasta Villalba [facility] November 07, 2022 2:43pm Note Date/Time November 07, 2022 2:43 pm [facility] [address] [place] [address] Nephrology Progress Note Signed Patient: Evans Forte MR#: [id number] : 1970 Acct:[id number] Age/Sex: 52 / M Adm Date: 3 Loc: Room: [address] [place] [address] Type: ADM IN Attending Dr: Chintan Brewster DO Copies to: ~ Date of Service: 11/07/2022 Subjective Subjective Narrative: This is a 52-year-old male patient with a past sickle history of chronic kidney disease stage V from diabetic nephropathy, hypertension, morbid obesity, anemia of renal disease, neuropathy. 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 Waters for hyperkalemia with potassium 5.9 [...] 11/07/22 11:21 11/07/22 12:12 11/07/22 11:21 11/07/22 11:11/06/22 14:55 Narrative: General: No acute distress Head [...] 500 Mg Tablet) 500 mg PO DAILY [facility] Stop: 11/05/23 08:59 Last Admin: 11/07/22 08:38 Dose: 500 mg Atorvastatin Calcium (Atorvastatin 20 Mg Tablet) 20 mg PO DAILY [facility] Stop: 11/05/23 08:59 Last Admin: 11/07/22 08:37 Dose: 20 mg Carvedilol (Carvedilol 25 Mg Tablet) 25 mg PO BID [facility] Stop: 11/04/23 20:59 Last Admin: 11/07/22 08:38 Dose: 25 mg Docusate Sodium (Docusate 100 Mg Capsule) 100 mg PO BID [facility] Stop: 11/06/23 20:59 Last Admin: 11/07/22 08:40 Dose: Not Given Emollient Ointment (Petrolatum,White 99 Gm Oint...G.) 1 applic TOPICAL DAILY [facility] Stop: 11/05/23 09:59 Last Admin: 11/07/22 08:39 Dose: 1 applic Fenofibrate (Fenofibrate Nanocrystallized 145 Mg Tablet) 145 mg PO DAILY [facility] Stop: 11/05/23 08:59 Last Admin: 11/07/22 08:37 Dose: 145 mg Ferrous Sulfate (Ferrous Sulfate 324 Mg Tablet.Dr) 324 mg PO DAILY [facility] Stop: 11/05/23 08:59 Last Admin: 11/07/22 08:38 Dose: 324 mg Folic Acid (Cyanocobalamin/Fa/Pyridoxine 1 Tab Tablet) 1 tab PO DAILY [facility] Stop: 11/05/23 08:59 Last Admin: 11/07/22 08:38 Dose: 1 tab Furosemide (Furosemide 40 Mg/4 Ml Vial) 40 mg IV-PUSH DAILY.8A [facility] Stop: 11/07/23 09:54 Last Admin: 11/07/22 11:23 Dose: 40 mg Heparin Sodium (Porcine) (Heparin 5,000 Unit/Ml Vial) 5,000 unit SUBCUT Q8HR [facility] Stop: 11/05/23 13:59 Last Admin: 11/07/22 13:45 Dose: 5,000 unit Hydralazine HCl (Hydralazine 20 Mg/Ml Vial) 10 mg IV-PUSH Q4H PRN PRN Reason: if SBP > 185 Stop: 11/04/23 23:30 Last Admin: 11/07/22 12:13 Dose: 10 mg Hydralazine HCl (Hydralazine 50 Mg Tablet) 100 mg PO TID [facility] Stop: 11/07/23 13:59 Last Admin: 11/07/22 13:44 Dose: 100 mg Ferric Sodium Gluconate Complex 250 mg/ Sodium Chloride 270 mls @ 135 mls/hr IVQAM [facility] Stop: 11/09/22 09:01 Last Admin: 11/07/22 09:49 Dose: 135 mls/hr Insulin Human Regular (Insulin Regular U-500, Human 1,500 Unit/3 Ml Insuln.Pen) 45 unit SUBCUT DAILY@1700 [facility] Stop: 11/05/23 16:59 Last Admin: 11/06/22 17:13 Dose: 45 unit Insulin Human Regular (Insulin Regular U-500, Human 1,500 Unit/3 Ml Insuln.Pen) 70 unit SUBCUT DAILY@0600 [facility] Stop: 11/05/23 05:59 Last Admin: 11/07/22 05:54 Dose: 70 unit Labetalol HCl (Labetalol 100 Mg/20 Ml Vial) 10 mg IV-PUSH Q10M PRN PRN Reason: Hypertension Stop: 11/04/23 16:31 Last Admin: 11/04/22 21:41 Dose: 10 mg Levothyroxine Sodium (Levothyroxine 100 Mcg Tablet) 100 mcg PO DAILY@0630 [facility] Stop: 11/05/23 06:29 Last Admin: 11/07/22 05:55 Dose: 100 mcg Lorazepam (Lorazepam 2 Mg/Ml Vial) 0.5 mg IV-PUSH Q4H PRN PRN Reason: Agitation Stop: 05/05/23 16:50 Last Admin: 11/06/22 17:11 Dose: 0.5 mg Nifedipine (Nifedipine Er.24hr 90 Mg Tab.Er.24) 90 mg PO DAILY [facility] Stop: 11/05/23 08:59 Last Admin: 11/07/22 08:39 Dose: 90 mg Pregabalin (Pregabalin 50 Mg Capsule) 50 mg PO DAILY [facility] Stop: 05/04/23 08:59 Last Admin: 11/07/22 08:38 Dose: 50 mg Sodium Bicarbonate (Sodium Bicarbonate 650 Mg Tablet) 1,300 mg PO BID [facility] Stop: 11/05/23 10:29 Last Admin: 11/07/22 08:38 [...] 10 Gm Powd.Pack) 10 gm PO TID [facility] Stop: 11/07/23 13:59 Last Admin: 11/07/22 13:44 Dose: 10 gm Trazodone HCl (Trazodone 50 Mg Tablet) 50 mg PO QHS [facility] Stop: 11/06/23 20:59 Last Admin: 11/06/22 21:32 Dose: 50 mg Vitamin A (Vitamin A 3,000 Mcg (10,000 Units) Capsule) 3,000 mcg PO DAILY [facility] Stop: 11/05/23 08:59 Last Admin: 11/07/22 08:38 Dose: 3,000 mcg Vitamin D (Cholecalciferol 25 Mcg (1,000 Units) Tablet) 50 mcg PO DAILY [facility] Stop: 11/05/23 08:59 Last Admin: 11/07/22 08:37 Dose: 50 mcg Zinc Gluconate (Zinc Gluconate 50 Mg Tablet) 50 mg PO DAILY [facility] Stop: 11/05/23 08:59 Last Admin: 11/07/22 08:39 [...] a.m. Documented By: Yocasta Villalba MD 11/07/22 9594 Signed By: <Electronically signed by Yocasta Villalba MD> 11/07/[address] [facility] Work Phone: Progress note Author Arnol Calloway [facility] November 21, 2023 5:52pm Note Date/Time November 21, 2023 11: 07am [facility] [address] [place] [address] Hospitalist Progress Note Signed Patient: Evans Forte MR#: [id number] : 1970 Acct:[id number] Age/Sex: 53 / M Adm Date: 4 Loc: Room: [address] [place] [address] Type: ADM IN Attending Dr: Arnol Calloway [...] as neuropathy. Follows with Dr. Fonseca/podiatry in [place] but indicates has not had vascular studies [...] Tablet PO 11/20/24 08:59 1 mg QAM [facility] Administration Atorvastatin Calcium 20 mg 11/21/23 09:00 11/21/23 08:00 Atorvastatin 20 Mg Tablet PO 11/20/24 08:59 20 mg QAM [facility] Administration Calcitriol 0.25 mcg 11/23/23 09:00 Calcitriol 0.25 Mcg Capsule PO 11/22/24 08:59 TuThSa@0900 [facility] Calcium Acetate 2,668 mg 11/21/23 07:30 11/21/23 07:54 Calcium Acetate 667 Mg Capsule PO 11/20/24 07:29 2,668 mg AC [facility] Administration Cyanocobalamin 1,000 mcg 11/21/23 09:00 11/21/23 08:00 Cyanocobalamin 1,000 Mcg Tablet PO 11/20/24 08:59 1,000 mcg DAILY [facility] Administration Heparin Sodium (Porcine) 5,000 unit 11/21/23 09:00 11/21/23 08:00 Heparin 5,000 Unit/Ml Vial SUBCUT 11/20/24 08:59 5,000 unit Q12HR [facility] Administration Linezolid 600 mg in 300 mls @ 300 mls/hr 11/21/23 09:30 11/21/23 09:06 Zyvox IV 300 mls/hr Q12H [facility] Administration Ceftriaxone Sodium 2 gm in 50 mls @ 100 mls/hr 11/21/23 20:00 Rocephin IV Q24H [facility] Insulin Human Regular 50 unit 11/21/23 09:00 11/21/23 08:00 Insulin Regular U-500, Human 1,500 Unit/3 Ml Insuln.Pen SUBCUT 11/20/24 08:59 50 unit BID [facility] Administration Levothyroxine Sodium 100 mcg 11/21/23 06:30 11/21/23 05:39 Levothyroxine 100 Mcg Tablet PO 11/20/24 06:29 100 mcg DAILY.0630 [facility] Administration Melatonin 5 mg 11/20/23 21:03 Melatonin 5 Mg Tablet PO 11/19/24 21:02 QHS PRN Insomnia Morphine Sulfate 2 mg 11/20/23 21:03 11/21/23 00:25 Morphine Sulfate 2 Mg/Ml Vial IV-PUSH 2 mg Q4H PRN Administration Pain Scale 8 - 10 Testosterone 1 % (50 1 packet 11/21/23 09:00 11/21/23 10:14 Mg/5 Gram) Gel In TRANSDERML 11/20/24 08:59 Not Given Packet DAILY [facility] Tirzepatide [ 5 mg 11/30/23 09:00 Mounjaro] 5 Mg/0.5 SUBCUT 11/29/24 08:59 Ml Pen Injector Tu@0900 [facility] Ondansetron HCl 4 mg 11/20/23 21:03 Ondansetron 4 Mg/2 Ml Vial IV-PUSH 11/19/24 21:02 Q8H PRN Nausea And Vomiting Pregabalin 150 mg 11/21/23 09:00 11/21/23 08:00 Pregabalin 150 Mg Capsule PO 05/19/24 08:59 150 mg BID [facility] Administration Sodium Chloride 0 ml 11/20/23 18:44 [...] [place]> 11/21/23 1532 <Electronically signed by Arnol Calolway MD> 11/21/[address] [facility] Work Phone: Progress note Author Amy Escudero [facility] November 22, 2023 12:45pm Note Date/Time November 22, 2023 10: 37am [facility] [address] [place] [address] Hospitalist Progress Note Signed Patient: Evans Forte MR#: [id number] : 1970 Acct:[id number] Age/Sex: 53 / M Adm Date: 4 Loc: Room: [address] [place] [address] Type: ADM IN Attending Dr: Amy Escudero [...] Tablet PO 11/20/24 08:59 1 mg QAM [facility] Administration Atorvastatin Calcium 20 mg 11/21/23 09:00 11/22/23 08:13 Atorvastatin 20 Mg Tablet PO 11/20/24 08:59 20 mg QAM [facility] Administration Calcitriol 0.25 mcg 11/23/23 09:00 Calcitriol 0.25 Mcg Capsule PO 11/22/24 08:59 TuThSa@0900 [facility] Calcium Acetate 2,668 mg 11/21/23 07:30 11/22/23 08:13 Calcium Acetate 667 Mg Capsule PO 11/20/24 07:29 2,668 mg AC [facility] Administration Cyanocobalamin 1,000 mcg 11/21/23 09:00 11/22/23 08:13 Cyanocobalamin 1,000 Mcg Tablet PO 11/20/24 08:59 1,000 mcg DAILY [facility] Administration Heparin Sodium (Porcine) 5,000 unit 11/21/23 09:00 11/22/23 08:14 Heparin 5,000 Unit/Ml Vial SUBCUT 11/20/24 08:59 5,000 unit Q12HR [facility] Administration Linezolid 600 mg in 300 mls @ 300 mls/hr 11/21/23 09:30 11/22/23 08:58 Zyvox IV 300 mls/hr Q12H [facility] Administration Ceftriaxone Sodium 2 gm in 50 mls @ 100 mls/hr 11/21/23 20:00 11/21/23 19:41 Rocephin IV 100 mls/hr Q24H [facility] Administration Insulin Aspart 0 units 11/21/23 16:30 03/18/24 08:13 Insulin Aspart 300 Units/3 Ml Insuln.Pen SUBCUT 11/20/24 16:29 Not Given ACHS [facility] Protocol Insulin Human Regular 50 unit 11/21/23 09:00 11/22/23 08:16 Insulin Regular U-500, Human 1,500 Unit/3 Ml Insuln.Pen SUBCUT 11/20/24 08:59 50 unit BID [facility]OLD Administration Levothyroxine Sodium 100 mcg 11/21/23 06:30 11/22/23 05:29 Levothyroxine 100 Mcg Tablet PO 11/20/24 06:29 100 mcg DAILY.0630 [facility]OLD Administration Melatonin 5 mg 11/20/23 21:03 Melatonin 5 Mg Tablet PO 11/19/24 21:02 QHS PRN Insomnia Morphine Sulfate 2 mg 11/20/23 21:03 11/21/23 19:41 Morphine Sulfate 2 Mg/Ml Vial IV-PUSH 2 mg Q4H PRN Administration Pain Scale 8 - 10 Testosterone 1 % (50 1 packet 11/21/23 09:00 11/21/23 10:14 Mg/5 Gram) Gel In TRANSDERML 11/20/24 08:59 Not Given Packet DAILY [facility] Tirzepatide [ 5 mg 11/30/23 09:00 Mounjaro] 5 Mg/0.5 SUBCUT 11/29/24 08:59 Ml Pen Injector Tu@0900 [facility] Ondansetron HCl 4 mg 11/20/23 21:03 Ondansetron 4 Mg/2 Ml Vial IV-PUSH 11/19/24 21:02 Q8H PRN Nausea And Vomiting Pregabalin 150 mg 11/21/23 09:00 11/22/23 08:14 Pregabalin 150 Mg Capsule PO 05/19/24 08:59 150 mg BID [facility]OLD Administration Sodium Chloride 0 ml 11/20/23 18:44 [...] signed by Amy Escudero DO> 11/22/[address] [facility] Work Phone: Progress note Author Ada Uriostegui [facility] November 22, 2023 12:53pm Note Date/Time November 22, 2023 12: 53pm [facility] [address] [place] [address] Nephrology Progress Note Signed Patient: Evans Forte MR#: [id number] : 1970 Acct:[id number] Age/Sex: 53 / M Adm Date: 4 Loc: Room: [address] [place] [address] Type: ADM IN Attending Dr: Amy Escudero DO Copies to: ~ Date of Service: 11/22/2023 Subjective Subjective Narrative: This is a 53-year-old male patient with a past medical history of hypertension, hyperlipidemia, end-stage renal disease on TTS hemodialysis schedule at [facility], insulin-dependent diabetes mellitus, obstructive sleep apnea, right [...] Skin: No rashes , warm to touch 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: Awake,Alert, following simple command Musculoskeletal: No joint [...] Tablet) 1 mg PO QAM [facility] Stop: 11/20/24 08:59 Last Admin: 11/22/23 08:14 Dose: 1 mg Atorvastatin Calcium (Atorvastatin 20 Mg Tablet) 20 mg PO QAM [facility] Stop: 11/20/24 08:59 Last Admin: 11/22/23 08:13 Dose: 20 mg Calcitriol (Calcitriol 0.25 Mcg Capsule) 0.25 mcg PO TuThSa@0900 [facility] Stop: 11/22/24 08:59 Calcium Acetate (Calcium Acetate 667 Mg Capsule) 2,668 mg PO AC [facility] Stop: 11/20/24 07:29 Last Admin: 11/22/23 11:21 Dose: 2,668 mg Carvedilol (Carvedilol 6.25 Mg Tablet) 6.25 mg PO BID [facility] Stop: 11/21/24 12:19 Cyanocobalamin (Cyanocobalamin 1,000 Mcg Tablet) 1,000 mcg PO DAILY [facility] Stop: 11/20/24 08:59 Last Admin: 11/22/23 08:13 Dose: 1,000 mcg Heparin Sodium (Porcine) (Heparin 5,000 Unit/Ml Vial) 5,000 unit SUBCUT Q12HR [facility] Stop: 11/20/24 08:59 Last Admin: 11/22/23 08:14 Dose: 5,000 unit Linezolid (Zyvox) 600 mg in 300 mls @ 300 mls/hr IV Q12H [facility] Last Admin: 11/22/23 08:58 Dose: 300 mls/hr Ceftriaxone Sodium (Rocephin) 2 gm in 50 mls @ 100 mls/hr IV Q24H [facility] Last Admin: 11/21/23 19:41 Dose: 100 mls/hr Insulin Aspart (Insulin Aspart 300 Units/3 Ml Insuln.Pen) 0 units SUBCUT ACHS [facility]; Protocol Stop: 11/20/24 16:29 Last Admin: 11/22/23 11:22 Dose: 2 units Insulin Human Regular (Insulin Regular U-500, Human 1,500 Unit/3 Ml Insuln.Pen) 50 unit SUBCUT BID [facility] Stop: 11/20/24 08:59 Last Admin: 11/22/23 08:16 Dose: 50 unit Levothyroxine Sodium (Levothyroxine 100 Mcg Tablet) 100 mcg PO DAILY.0630 [facility] Stop: 11/20/24 06:29 Last Admin: 11/22/23 05:29 [...] Packet 1 packet TRANSDERML DAILY [facility] Stop: 11/20/24 08:59 Last Admin: 11/22/23 11:21 Dose: Not Given Tirzepatide [ Mounjaro] 5 Mg/0.5 Ml Pen Injector 5 mg SUBCUT Tu@0900 [facility] Stop: 11/29/24 08:59 Ondansetron HCl (Ondansetron 4 Mg/2 Ml Vial) 4 mg IV-PUSH Q8H PRN PRN Reason: Nausea And Vomiting Stop: 11/19/24 21:02 Pregabalin (Pregabalin 150 Mg Capsule) 150 mg PO BID [facility] Stop: 05/19/24 08:59 Last Admin: 11/22/23 08:14 [...] Taqueria Reese M.D.11/21/2023 4:39 PM Dictation Location: [address] 11/22/23 07:00 IMPRESSION: NO HEMODYNAMICALLY SIGNIFICANT PERIPHERAL VASCULAR OCCLUSIVE DISEASE AT REST IN EITHER LOWER EXTREMITY. Impression dictated by: Ramirez Jean M.D.11/22/2023 10:09 AM Dictation Location: [place] [address] Any impression(s) listed above is documentation that was entered by the reading physician into a diagnostic report(s) for Evans oFrte. I have reviewed the report(s) and am incorporating any findings in the treatment plan of this patient where applicable. 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 Patient has been going to [facility] for hemodialysis. Last hemodialysis session was yesterday [...] signed by Ada Uriostegui MD> 11/22/[address] [facility] Work Phone: Progress note Author Ada Uriostegui [facility] November 23, 2023 12:09pm Note Date/Time November 23, 2023 10: 34am [facility] [address] [place] [address] Nephrology Progress Note Signed Patient: Evans Forte MR#: [id number] : 1970 Acct:[id number] Age/Sex: 53 / M Adm Date: 4 Loc: Room: [address] [place] [address] Type: ADM IN Attending Dr: Amy Escudero DO Copies to: ~ Date of Service: 11/23/2023 Subjective Subjective Narrative: This is a 53-year-old male patient with a past medical history of hypertension, hyperlipidemia, end-stage renal disease on TTS hemodialysis schedule at [facility], insulin-dependent diabetes mellitus, obstructive sleep apnea, right [...] Skin: No rashes , warm to touch 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: Awake,Alert, following simple command Musculoskeletal: No joint [...] Tablet) 1 mg PO QAM [facility] Stop: 11/20/24 08:59 Last Admin: 11/22/23 08:14 Dose: 1 mg Atorvastatin Calcium (Atorvastatin 20 Mg Tablet) 20 mg PO QAM [facility] Stop: 11/20/24 08:59 Last Admin: 11/22/23 08:13 Dose: 20 mg Calcitriol (Calcitriol 0.25 Mcg Capsule) 0.25 mcg PO TuThSa@0900 [facility] Stop: 11/22/24 08:59 Calcium Acetate (Calcium Acetate 667 Mg Capsule) 2,668 mg PO AC [facility] Stop: 11/20/24 07:29 Last Admin: 11/23/23 08:52 Dose: Not Given Carvedilol (Carvedilol 6.25 Mg Tablet) 6.25 mg PO BID [facility] Stop: 11/21/24 13:29 Last Admin: 11/23/23 08:53 Dose: Not Given Cyanocobalamin (Cyanocobalamin 1,000 Mcg Tablet) 1,000 mcg PO DAILY [facility] Stop: 11/20/24 08:59 Last Admin: 11/22/23 08:13 Dose: 1,000 mcg Darbepoetin Zechariah (Darbepoetin Zechariah In Polysorbat 25 Mcg/Ml Vial) 25 mcg IV-PUSHTu@0930 [facility]; Protocol Stop: 11/22/24 09:29 Furosemide (Furosemide 80 Mg Tablet) 80 mg PO BID@0800,1600 [facility] Stop: 11/21/24 15:59 Last Admin: 11/23/23 08:52 Dose: Not Given Heparin Sodium (Porcine) (Heparin 5,000 Unit/Ml Vial) 5,000 unit SUBCUT Q12HR [facility] Stop: 11/20/24 08:59 Last Admin: 11/23/23 08:53 [...] @ 300 mls/hr IV Q12H [facility] Last Admin: 11/22/23 21:02 Dose: 300 mls/hr Ceftriaxone Sodium (Rocephin) 2 gm in 50 mls @ 100 mls/hr IV Q24H [facility] Last Admin: 11/22/23 19:25 Dose: 100 mls/hr Sodium Chloride (0.9% Sodium Chloride 1,000 Ml) 1,000 mls @ 0 mls/hr MISCELLANE.Q0M PRN PRN Reason: Dialysis Stop: 11/22/24 09:19 Last Infusion: 11/23/23 09:43 Dose: Infused Insulin Aspart (Insulin Aspart 300 Units/3 Ml Insuln.Pen) 0 units SUBCUT ACHS [facility]; Protocol Stop: 11/20/24 16:29 Last Admin: 11/23/23 08:52 Dose: Not Given Insulin Human Regular (Insulin Regular U-500, Human 1,500 Unit/3 Ml Insuln.Pen) 50 unit SUBCUT BID [facility] Stop: 11/20/24 08:59 Last Admin: 11/23/23 08:53 Dose: Not Given Levothyroxine Sodium (Levothyroxine 100 Mcg Tablet) 100 mcg PO DAILY.0630 [facility] Stop: 11/20/24 06:29 Last Admin: 11/23/23 05:38 [...] Packet 1 packet TRANSDERML DAILY [facility] Stop: 11/20/24 08:59 Last Admin: 11/23/23 08:53 Dose: Not Given Tirzepatide [ Mounjaro] 5 Mg/0.5 Ml Pen Injector 5 mg SUBCUT Tu@0900 [facility] Stop: 11/29/24 08:59 Ondansetron HCl (Ondansetron 4 Mg/2 Ml Vial) 4 mg IV-PUSH Q8H PRN PRN Reason: Nausea And Vomiting Stop: 11/19/24 21:02 Pregabalin (Pregabalin 50 Mg Capsule) 50 mg PO DAILY [facility] Stop: 05/21/24 08:59 Sodium Chloride (Sodium Chloride [...] diabetic nephropathy. Patient has been going to [facility] on [facility] for hemodialysis. Last hemodialysis session [...] <Electronically signed by Ada Uriostegui MD> 11/23/[address] [facility] Work Phone: Progress note Author Chintan Hernández [facility] November 23, 2023 10:54am Note Date/Time November 23, 2023 10: 54am [facility] [address] [place] [address] Infect. Disease Progress Note Signed Patient: Evans Forte MR#: [id number] : 1970 Acct:[id number] Age/Sex: 53 / M Adm Date: 4 Loc: Room: [address] [place] [address] Type: ADM IN Attending Dr: Amy Escudero [...] (Anastrozole 1 Mg Tablet) [facility] Stop: 11/20/24 08:59 Last Admin: 11/22/23 08:14 Dose: 1 mg Atorvastatin Calcium (Atorvastatin 20 Mg Tablet) 20 mg PO QAM [facility] Stop: 11/20/24 08:59 Last Admin: 11/22/23 08:13 Dose: 20 mg Calcitriol (Calcitriol 0.25 Mcg Capsule) 0.25 mcg PO TuThSa@0900 [facility] Stop: 11/22/24 08:59 Calcium Acetate (Calcium Acetate 667 Mg Capsule) 2,668 mg PO AC [facility] Stop: 11/20/24 07:29 Last Admin: 11/23/23 08:52 Dose: Not Given Carvedilol (Carvedilol 6.25 Mg Tablet) 6.25 mg PO BID [facility] Stop: 11/21/24 13:29 Last Admin: 11/23/23 08:53 Dose: Not Given Cyanocobalamin (Cyanocobalamin 1,000 Mcg Tablet) 1,000 mcg PO DAILY [facility] Stop: 11/20/24 08:59 Last Admin: 11/22/23 08:13 Dose: 1,000 mcg Darbepoetin Zechariah (Darbepoetin Zechariah In Polysorbat 25 Mcg/Ml Vial) 25 mcg IV-PUSHTu@0930 [facility]; Protocol Stop: 11/22/24 09:29 Furosemide (Furosemide 80 Mg Tablet) 80 mg PO BID@0800,1600 [facility] Stop: 11/21/24 15:59 Last Admin: 11/23/23 08:52 Dose: Not Given Heparin Sodium (Porcine) (Heparin 5,000 Unit/Ml Vial) 5,000 unit SUBCUT Q12HR [facility] Stop: 11/20/24 08:59 Last Admin: 11/23/23 08:53 [...] @ 300 mls/hr IV Q12H [facility] Last Admin: 11/22/23 21:02 Dose: 300 mls/hr Ceftriaxone Sodium (Rocephin) 2 gm in 50 mls @ 100 mls/hr IV Q24H [facility] Last Admin: 11/22/23 19:25 Dose: 100 mls/hr Sodium Chloride (0.9% Sodium Chloride 1,000 Ml) 1,000 mls @ 0 mls/hr MISCELLANE.Q0M PRN PRN Reason: Dialysis Stop: 11/22/24 09:19 Last Infusion: 11/23/23 09:43 Dose: Infused Insulin Aspart (Insulin Aspart 300 Units/3 Ml Insuln.Pen) 0 units SUBCUT ACHS [facility]; Protocol Stop: 11/20/24 16:29 Last Admin: 11/23/23 08:52 Dose: Not Given Insulin Human Regular (Insulin Regular U-500, Human 1,500 Unit/3 Ml Insuln.Pen) 50 unit SUBCUT BID [facility] Stop: 11/20/24 08:59 Last Admin: 11/23/23 08:53 Dose: Not Given Levothyroxine Sodium (Levothyroxine 100 Mcg Tablet) 100 mcg PO DAILY.0630 [facility] Stop: 11/20/24 06:29 Last Admin: 11/23/23 05:38 [...] Packet 1 packet TRANSDERML DAILY [facility] Stop: 11/20/24 08:59 Last Admin: 11/23/23 08:53 Dose: Not Given Tirzepatide [ Mounjaro] 5 Mg/0.5 Ml Pen Injector 5 mg SUBCUT Tu@0900 [facility] Stop: 11/29/24 08:59 Ondansetron HCl (Ondansetron 4 Mg/2 Ml Vial) 4 mg IV-PUSH Q8H PRN PRN Reason: Nausea And Vomiting Stop: 11/19/24 21:02 Pregabalin (Pregabalin 50 Mg Capsule) 50 mg PO DAILY [facility] Stop: 05/21/24 08:59 Sodium Chloride (Sodium Chloride [...] <Electronically signed by MD Chintan Hernández> 11/23/[address] [facility] Work Phone: Progress note Author Amy Escudero [facility] November 24, 2023 1:40pm Note Date/Time November 23, 2023 1:0 3pm [facility] [address] [place] [address] Hospitalist Progress Note Signed Patient: Evans Forte MR#: [id number] : 1970 Acct:[id number] Age/Sex: 53 / M Adm Date: 4 Loc: 3T Room: [address] [place] [address] Type: DIS IN Attending Dr: Amy Escudero [...] Tablet PO 11/20/24 08:59 1 mg QAM [facility] Administration Atorvastatin Calcium 20 mg 11/21/23 09:00 11/22/23 08:13 Atorvastatin 20 Mg Tablet PO 11/20/24 08:59 20 mg QAM [facility] Administration Calcitriol 0.25 mcg 11/23/23 09:00 Calcitriol 0.25 Mcg Capsule PO 11/22/24 08:59 TuThSa@0900 [facility] Calcium Acetate 2,668 mg 11/21/23 07:30 11/23/23 08:52 Calcium Acetate 667 Mg Capsule PO 11/20/24 07:29 Not Given AC [facility] Carvedilol 6.25 mg 11/22/23 13:30 11/23/23 08:53 Carvedilol 6.25 Mg Tablet PO 11/21/24 13:29 Not Given BID [facility] Cyanocobalamin 1,000 mcg 11/21/23 09:00 11/22/23 08:13 Cyanocobalamin 1,000 Mcg Tablet PO 11/20/24 08:59 1,000 mcg DAILY [facility] Administration Darbepoetin Zechariah 25 mcg 11/23/23 09:30 11/23/23 11:47 Darbepoetin Zechariah In Polysorbat 25 Mcg/Ml Vial IV-PUSH 11/22/24 09:29 25 mcg Tu@0930 [facility] Administration Protocol Furosemide 80 mg 11/22/23 16:00 11/23/23 08:52 Furosemide 80 Mg Tablet PO 11/21/24 15:59 Not Given BID@0800,1600 [facility] Heparin Sodium (Porcine) 5,000 unit 11/21/23 09:00 11/23/23 08:53 Heparin 5,000 Unit/Ml Vial SUBCUT 11/20/24 08:59 Not Given Q12HR [facility] Heparin Sodium (Porcine) 2,000 unit 11/23/23 09:20 [...] 11/22/23 21:02 Zyvox IV 300 mls/hr Q12H [facility] Administration Ceftriaxone Sodium 2 gm in 50 mls @ 100 mls/hr 11/21/23 20:00 11/22/23 19:25 Rocephin IV 100 mls/hr Q24H [facility] Administration Sodium Chloride 1,000 mls @ 0 mls/hr 11/23/23 09:20 11/23/23 11:45 0.9% Sodium Chloride 1,000 Ml MISCELLANE 11/22/24 09:19 999 mls/hr .Q0M PRN Administration Dialysis As Directed Insulin Aspart 0 units 11/21/23 16:30 11/23/23 08:52 Insulin Aspart 300 Units/3 Ml Insuln.Pen SUBCUT 11/20/24 16:29 Not Given ACHS [facility] Protocol Insulin Human Regular 50 unit 11/21/23 09:00 11/23/23 08:53 Insulin Regular U-500, Human 1,500 Unit/3 Ml Insuln.Pen SUBCUT 11/20/24 08:59 Not Given BID [facility] Levothyroxine Sodium 100 mcg 11/21/23 06:30 11/23/23 05:38 Levothyroxine 100 Mcg Tablet PO 11/20/24 06:29 100 mcg DAILY.0630 [facility] Administration Melatonin 5 mg 11/20/23 21:03 Melatonin 5 Mg Tablet PO 11/19/24 21:02 QHS PRN Insomnia Morphine Sulfate 2 mg 11/20/23 21:03 11/21/23 19:41 Morphine Sulfate 2 Mg/Ml Vial IV-PUSH 2 mg Q4H PRN Administration Pain Scale 8 - 10 Testosterone 1 % (50 1 packet 11/21/23 09:00 11/23/23 08:53 Mg/5 Gram) Gel In TRANSDERML 11/20/24 08:59 Not Given Packet DAILY [facility] Tirzepatide [ 5 mg 11/30/23 09:00 Mounjaro] 5 Mg/0.5 SUBCUT 11/29/24 08:59 Ml Pen Injector Tu@0900 [facility] Ondansetron HCl 4 mg 11/20/23 21:03 Ondansetron 4 Mg/2 Ml Vial IV-PUSH 11/19/24 21:02 Q8H PRN Nausea And Vomiting Pregabalin 50 mg 11/23/23 09:00 Pregabalin 50 Mg Capsule PO 05/21/24 08:59 DAILY [facility] Sodium Chloride 0 ml 11/20/23 18:44 11/23/23 [...] peripheral vascular occlusive disease ESRD on hemodialysis // Anemia of CKD [...] signed by Amy Escudero DO> 11/24/[address] [facility] Work Phone: Progress note Author Gi Mondragon [facility] November 23, 2023 3:53pm Note Date/Time November 23, 2023 3:5 3pm [facility] [address] [place] [address] Podiatry Progress Note Signed Patient: Evans Forte MR#: [id number] : 1970 Acct:[id number] Age/Sex: 53 / M Adm Date: 4 Loc: Room: [address] [place] [address] Type: ADM IN Attending Dr: Amy Escudero DO Copies to: ~ Subjective Subjective Date of Service: Date of Service: 11/23/2023 Time of Service: 15:51 Narrative: Mr. Forte is a 53 year old male who was admitted due to symptoms of sepsis. Patient has a large ulceration on the bottom of the right great toe and heel. 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 Patient states that the ulcerations [...] large hyperkeratosis. Patient will follow-up with his rapid transit operator and family for further wound care. Discussed [...] <Electronically signed by TIARA Mondragon> 11/23/23 1553 [facility] Work Phone: Progress note No data available for this section [facility] Reason for referral (narrative)No reason for referral information [facility]Barber[facility] Work Phone: Reason for visit NarrativeSelf Referral, New patient Type 2 DM dexcom g7 cgm u500 insulin apt with TMapus HARSH, KRIS-C, BC-ADMNohar[facility] 8 [employer] Other Summary Purpose Family History Relationship Condition Age at Onset Recorded Date/T [...] Unknown daughter Crohn's disease Unknown Advance Directives Advance Directive Response Recorded Date/ Time Advance [...] Hypertension Insulin dependent diabetes mellitus Metabolic acidosis [id number] Chief Complaint High BS R Leg Swelling vomiting/low urine output N18.5;E11.22;I12.9;N25.81;D63.1;E80.1;W87.5 abnormal labs, sent by ESRD Reason for Visit Acute hyperkalemia Acute kidney injury superimposed on CKD Chronic kidney disease CKD (chronic kidney disease) stage 5, GFR less than 15 ml/min Hyperkalemia Hypertension Insulin dependent diabetes mellitus Metabolic acidosis [id number] Chief Complaint DM E11.22 Chief Complaint DM E11.22 SOB Wheezing Chief Complaint E11.22 SOB Wheezing ESRD Reason for Visit [id number] Chief Complaint SOB Wheezing ESRD sob Reason for Visit [id number] Chief Complaint SOB Wheezing ESRD sob N18.6 Reason for Visit [id number] Chief Complaint SOB Wheezing ESRD sob N18.6 Needs Av Access; Vein Mapping Done At ESRD ESRD, Peritoneal Dialysis Catheter Dysfunction Reason for Visit [id number] Chief Complaint SOB Wheezing ESRD sob N18.6 Needs Av Access; Vein Mapping Done At F ESRD ESRD, Peritoneal Dialysis Catheter Dysfunction ESRD, Peritoneal Dialysis Catheter Dysfunction Reason for Visit [id number] Chief Complaint ESRD sob N18.6 Needs Av Access; Vein Mapping Done At F ESRD ESRD, Peritoneal Dialysis Catheter Dysfunction ESRD, Peritoneal Dialysis Catheter Dysfunction F/U LEFT ARM AVF CREATION abdominal wound fever, low blood pressure: post dialysis Reason for Visit [id number] Dependence on renal dialysis Chief Complaint ESRD [...] Benign hypertension with end-stage renal disease Diabetes [id number] Edema of right lower extremity End stage [...] Benign hypertension with end-stage renal disease Diabetes [id number] Edema of right lower extremity End stage [...] pain rx March 11, 2025 10:16 am Chief Complaint Admit Date bilat foot pain December 29, 2024 4:0 3pm swelling in rt leg January 01, 2025 8:[address] Vázquez back pain and neuropathy February 13, 2025 8:20am Amb Documentation February 20, 2025 8:27 am f/u and med refill for chronic pain March 07, 2025 3:40pm ran out of pain rx March 11, 2025 10:16 am Bilat Ft pain March 26, 2025 8:22 am Additional Source Comments (unrecognized sect ion and content) No Status Records FoundNo Status Records FoundNo Status Records FoundNo Status Records FoundNo Status Records FoundNo Status Records FoundNo Status Records FoundNo Status Records FoundNo Status Records FoundNo Status Records FoundNo Status Records FoundNo Status Records Found INFORMATION SOURCE (unrecogn ized section and content) DATE CREATED AUTHOR 04/03/2020 [facility] DATE CREATED AUTHOR AUTHOR'S ORGANIZ ATION 10/24/2021 [facility] Special[facility] DATE CREATED AUTHOR AUTHOR'S ORGANIZ ATION 05/14/2022 [facility] DATE CREATED AUTHOR AUTHOR'S ORGANIZ ATION 10/10/2022 [facility] DATE CREATED AUTHOR AUTHOR'S ORGANIZ ATION 12/10/2022 [facility] DATE CREATED AUTHOR AUTHOR'S ORGANIZ ATION 10/15/2024 [facility] DATE CREATED AUTHOR AUTHOR'S ORGANIZ ATION 12/07/2024 [facility] EPIC DATE CREATED AUTHOR AUTHOR'S ORGANIZ ATION 02/04/2025 [facility] DATE CREATED AUTHOR AUTHOR'S ORGANIZ ATION 02/04/2025 [facility] DATE CREATED AUTHOR AUTHOR'S ORGANIZ ATION 02/06/2025 [facility] DATE CREATED AUTHOR AUTHOR'S ORGANIZ ATION 03/27/2025 [facility] DATE CREATED AUTHOR AUTHOR'S ORGANIZ ATION 03/30/2025 [facility] REASON FOR VISIT (unrecogniz ed section and content) Reason Comments Back Pain Reason Comments Med Refill Reason Comments Foot [...] NEEDS AV ACCESS; VEIN MAPPING DONE AT [facility] ON 09/27/23, Need for dialysis accessWMN VoicemailTKM Pump start and U-500 refillTKM Pump orderTKM refill requestlab result/order for tandem pumplab results,suppliesTKM LyricaTKM - REFILL REQUEST FOR LYRICAletter for [facility]Clinical[facility] and HTNCKD Care Teams (unrecognized sec tion [...] 20, 2023 End: November 23, 2023 Chong Dixon DO Emergency Provider Active Start: November 20, 2023 End: November 23, 2023 Buddy Murguia DO Admit Provider Active Start: November 20, 2023 End: November 23, 2023 Yocasta Villalba MD Other Provider Active Start: 2023 End: November 23, 2023 Chintan Hernández MD Other Provider Active Start: November 20, 2023 End: November 23, 2023 PEE GarrisonM Other Provider Active Sta rt: November 20, 2023 End: November 23, 2023 Amy Escudero DO Attending Provider Active Sta rt: November 20, 2023 End: November 23, 2023 Team Status: Active Member Role Status Dates Idania Ricketts DO Primary Care Provider Active Start: November 20, 2023 End: November 23, 2023 Chogn Dixon DO Emergency Provider Active Start: November 20, 2023 End: November 23, 2023 Buddy Murguia DO Admit Provider, Atte nding Provider, Other Provider Active Start: November 20, 2023 End: November 23, 2023 Team Status: Active Member Role Status Dates Idania Ricketts DO Primary Care Provider Active Start: November 21, 2023 End: November 23, 2023 Chong Dixon DO Emergency Provider Active Start: November 21, [...] 22, 2023 End: November 23, 2023 Chong Dixon DO Emergency Provider Active Start: November 22, 2023 End: November 23, 2023 Buddy Murguia DO Admit Provider Active Start: November 22, 2023 End: November 23, 2023 Yocasta Villalba MD Other Provider Active Start: 2023 End: November 23, 2023 Chintan Hernández [...] November 25, 2023 End: November 25, 2023 Clara Bell DO Emergency Provider Active St art: [...] Status: Active Member Role Status Dates Idania Petznick , DO Primary Care Provider Active Start: October 06, 2023 Ramirez Jean MD Attending Provider, Other Provider Active Start: October 06, 2023 Team Status: Inactive Member Role Status Dates Idania Petznick , DO Primary Care Provider Active Start: October 18, 2023 End: October 18, 2023 Flakito Lennox , DO Attending Provider Active Start : October 18, 2023 End: October 18, 2023 Team Status: Inactive Member Role Status Dates Idania Petznick , DO Primary Care Provider Active Start: October 27, 2023 End: October 27, 2023 Flakito High , DO Attending Provider Active Start : October 27, 2023 End: October 27, 2023 Team Status: Inactive Member Role Status Dates Idania Petkorina , DO Primary Care Provider Active Ada Uriostegui MD Attending Provider Active Team Status: Inactive Member Role Status Dates Idania Pettanoick , DO Primary Care Provider Active Yosef Castillo DO Emergency Provider Active Team Status: Inactive Member Role Status Dates Idania Pettanoick , DO Primary Care Provider Active Yolie Noe , RES Active Evans Narayanan Jr, MD Emergency Provider Active Team Status: Inactive Member Role Status Dates Idania Petkorina , DO Primary Care Provider Active Evans Narayanan Jr, MD Emergency Provider Active Team Status: Inactive Member Role Status Dates Idania Pettanoick , DO Primary Care Provider Active Mary Hill APRN Emergency Provider Active Team Status: Active Member Role Status Dates Idaniakavita Ricketts , DO Primary Care Provider Active Delano Mondragon MD Emergency Provider Active Chintan Brewster DO Admit Provider, Attending Provider Active Team Status: Inactive Member Role Status Dates Idania Petznick , DO Primary Care Provider Active Delano Mondragon MD Emergency Provider Active Chintan Brewster DO Admit Provider, Attending Provider Active Jf Liu MD Other Provider Active Ada Uriostegui MD Other Provider Active Zenon Cage MD Other Provider Active Conor Mcnamara MD Other Provider Active Yocasta Villalba MD Other Provider Active Team Status: Inactive Member Role Status Dates Idania Petznick , DO Primary Care Provider Active Chintan Brewster DO Attending Provider Active Team Status: Active Member Role Status Dates Idania Pettanoick , DO Primary Care Provider Active Tondra K Mapus , PARA OPERATOR Attending Provider Active Team Status: Inactive Member Role Status Dates Idania Ricketts DO Primary Care Provider Active Clara Bell DO Emergency Provider Active Team Status: Inactive Member Role Status Dates Idania Ricketts DO Primary Care Provider Active Ramirez Jean MD Attending Provider Active Team Status: Inactive Member Role Status Dates Idania Ricketts DO Primary Care Provider Active Start: August 09, 2023 End: August 09, 2023 Clara Bell DO Emergency Provider Active St art: [...] Status: Inactive Member Role Status Dates Idania Herotanoaston Primary Care Provider Active Start: September 27, 2023 End: September 27, 2023 Augusta Hill MD Attending Provider Active Start: September 27, 2023 End: September 27, 2023 Evaporator Operator Molasses Relationship Specialty Start Date End Date Idania Ricketts DO [address] [place] [address] PCP - [place] 09/09/22 Idania Ricketts, DO [address] [place] [address] PCP - [facility] [place] [facility] 02/04/23 Idania Ricketts DO [address] [place] [address] PCP - General Family Medicine 09/20/23 Evaporator Operator Molasses Relationship Specialty Start Date End Date Idania Ricketts DO [address] [place] [address] PCP - [place] 09/09/22 Idania Ricketts, DO [address] [place] [address] PCP - [facility] 02/04/23 Idania Ricketts, DO [address] [place] [address] PCP - General Family Medicine 09/20/23 Team Status: Inactive Member Role Status Dates Ramirez Jean MD Attending Provider Active S tart: October 04, 2023 End: October 04, 2023 Evaporator Operator Molasses Relationship Specialty Start Date End Date Idania Ricketts, DO [address] [place] [address] PCP - [place] 09/09/22 Idania Ricketts, DO [address] [place] [address] PCP - [facility] 02/04/23 Idania Ricketts, DO [address] [place] [address] PCP - General Family Medicine 09/20/23 Team Status: Active Member Role Status Dates Idania Ricketts DO Primary Care Provider Active Start: November 15, 2023 Flakito High , Attending Provider, Referring Provider Active Start: November 15, 2023 Team Status: Active Member Role Status Dates Idania Ricketts DO Primary Care Provider Active Start: November 20, 2023 Chong Dixon , Emergency Provider Active Start: November 20, 2023 Buddy Murguia , DO Admit Provider, Atte nding Provider Active Start: November 20, 2023 Team Status: Active Member Role Status Dates Idania Ricketts DO Primary Care Provider Active Start: November 20, 2023 Chong Dixon DO Emergency Provider Active Start: November 20, 2023 Buddy Murguia DO Admit Provider, Atte nding Provider, Other Provider Active Start: November 20, 2023 Team Status: Active Member Role Status Dates Idania Ricketts DO Primary Care Provider Active Start: November 21, 2023 Chong Dixon DO Emergency Provider Active Start: November 21, 2023 Buddy Murguia DO Admit Provider Active Start: November 21, 2023 Arnol Calloway MD Other Provider Active Start: November 21, 2023 Yocasta Villalba MD Attending Provider, Other Provider Active Start: November 21, 2023 Team Status: Active Member Role Status Dates Idania Ricketts DO Primary Care Provider Active Start: November 22, 2023 Chong Dixon DO Emergency Provider Active Start: November 22, 2023 Buddy Murguia , Admit Provider Active Start: November 22, 2023 [...] 15, 2024 End: May 15, 2024 Chong Dixon DO Emergency Provider Active Start: May 15, 2024 End: May 15, 2024 Evaporator Operator Molasses Relationship Specialty Start Date End Date Idania Ricketts DO [address] [place] [address] PCP - General Family Medicine 09/20/23 Evaporator Operator Molasses Relationship Specialty Start Date End Date Idania Ricketts, DO [address] [place] [address] PCP - General Family Medicine 09/20/23 Evaporator Operator Molasses Relationship Specialty Start Date End Date Idania Ricketts, DO [address] [place] [address] PCP - General Family [facility] 09/20/23 Marilin Idania M, DO [address] [place] [address] PCP - [facility] 09/06/23 09/05/24 Evaporator Operator Molasses Relationship Specialty Start Date End Date Idania Ricketts, DO [address] [place] [address] PCP - General Family Medicine 09/20/23 Marilin Idania M, DO [address] [place] [address] PCP - [facility] 09/06/23 09/05/24 Evaporator Operator Molasses Relationship Specialty Start Date End Date Vandanaaston Idania M, DO [address] [place] [address] PCP - General Family Medicine 09/20/23 Idania Ricketts, DO [address] [place] [address] PCP [facility] 09/06/23 09/05/24 Evaporator Operator Molasses Relationship Specialty Start Date End Date Herokorina Idania M, DO [address] [place] [address] PCP - General Family Medicine 09/20/23 Evaporator Operator Molasses Relationship Specialty Start Date End Date Idania Ricketts, DO [address] [place] [address] PCP - General Family Medicine 09/20/23 Evaporator Operator Molasses Relationship Specialty Start Date End Date HeroIdania louie, DO [address] [place] [address] PCP - General Family Medicine 09/20/23 Evaporator Operator Molasses Relationship Specialty Start Date End Date Marilin Idania M, DO [address] [place] [address] PCP - [facility] Family Medicine 09/20/23 Evaporator Operator Molasses Relationship Specialty Start Date End Date Vandanaaston Idania M, DO [address] [place] [address] PCP - General Family Medicine 09/20/23 Evaporator Operator Molasses Relationship Specialty Start Date End Date Idania Ricketts Maeve, DO [address] [place] [address] PCP - General Family Medicine 09/20/23 Tesfaye Rickettskavita Mcfarlane, DO [address] [place] [address] PCP [facility] 09/06/23 09/05/24 Evaporator Operator Molasses Relationship Specialty Start Date End Date Idania Ricketts Maeve, DO [address] [place] [address] PCP - General Family Medicine 09/20/23 Idania Ricketts DO [address] [place] [address] PCP - [facility] 09/06/23 09/05/24 Evaporator Operator Molasses Relationship Specialty Start Date End Date VandanaastonIdania MaeveDO [address] [place] [address] PCP - General Family Medicine 09/20/23 Evaporator Operator Molasses Relationship Specialty Start Date End Date Idania Ricketts MaeveDO [address] [place] [address] PCP - General Family Medicine 09/20/23 Evaporator Operator Molasses Relationship Specialty Start Date End Date Idania Ricketts DO [address] [place] [address] PCP - General Family Medicine 09/20/23 Evaporator Operator Molasses Relationship Specialty Start Date End Date Idania Ricketts MaeveDO [address] [place] [address] PCP - General Family Medicine 09/20/23 Evaporator Operator Molasses Relationship Specialty Start Date End Date Idania Ricketts DO [address] [place] [address] PCP - General Family Medicine 09/20/23 Evaporator Operator Molasses Relationship Specialty Start Date End Date Idania Ricketts DO [address] [place] [address] PCP - General Family Medicine 09/20/23 Team Status: Inactive Member Role Status Dates Idania Ricketts DO Primary Care Provider Active Start: August 28, [...] Jf Liu MD Other Provider Active Start: 2024 DARCI Concepcion Other Provider Active Start: October 29, 2024 Ada Uriostegui MD Other Provider Active Start: 2024 Yocasta Villalba MD Other Provider Active Start: 2024 Gi Mondragon DPM Other Provider Active [...] Jf Liu MD Other Provider Active Start: 2024 End: October 30, 2024 DARCI Concepcion Other Provider Active Start: October 29, 2024 End: October 30, 2024 Ada Uriostegui MD Other Provider Active Start: 2024 End: October 30, 2024 Yocasta Villalba MD Other Provider Active Start: 2024 End: October 30, 2024 Gi Mondragon DPM Other Provider Active Star t: October 29, 2024 End: October 30, 2024 Evaporator Operator Molasses Relationship Specialty Start Date End Date Idania Ricketts DO [address] [place] [address] PCP - General Family Medicine 09/20/23 Team Status: Inactive Member Role Status Dates Idania Ricketts DO Primary Care Provider Active Start: November 27, 2024 End: November 28, 2024 Venkat Burgos DO Emergency Provider Active Sta rt: November 27, 2024 End: November 28, 2024 Evaporator Operator Molasses Relationship Specialty Start Date End Date Idania RickettsDO [address] [place] [address] PCP - General Family Medicine 09/20/23 Team [...] February 13, 2025 End: February 13, 2025 Evaporator Operator Molasses Relationship Specialty Start Date End Date VandanaIdania clancyDO [address] [place] [address] PCP - General Family Medicine 09/20/23 Team [...] Status: Active Member Role Status Dates Idania Rikcetts DO Primary Care Provider Active Start: February [...] March 11, 2025 End: March 11, 2025 Team Status: Inactive Member Role Status Dates Idania Ricketts DO Primary Care Provider Active Start: March 26, 2025 End: March 26, 2025 Will Cerna PA-C Emergency Provider Active Start: March 26, 2025 End: March 26, 2025 Evaporator Operator Molasses Relationship Specialty Start Date End Date Idania Ricketts DO [address] [place] [address] PCP - General 06/15/18 Goals (unrecognized section and content) Goals may [...] BE BASED ON THE PRIMARY CLINICAL RECORDS. [employer] provides no warranty or guarantee of the accuracy or completeness of information in this document.
[2025-04-06 19:47] VITALS: BP 186/90; PULSE 73; TEMP 37.3; O2SAT 97; BMI 38.5
--- NOTE | 2025-04-06 19:58 | PC.NURSE ---
Complains of pain to bilateral feet, reports pain as neropathy pain .
[2025-04-06] MEDS: HYDROMORPHONE HCL 1 MG/ML CARTRIDGE IM (20:19)
--- NOTE | 2025-04-06 20:44 | ED.GENADUL1 ---
HPI HPI - General Adult General Chief complaint: Extremity Injury, Lower Stated complaint: NEUROPATHY PAIN Time Seen by Provider: 04/06/25 19:25 Source: patient and medical record Mode of arrival: walk-in Limitations: no limitations History of Present Illness HPI narrative: This 55-year-old male presents with a chief complaint of burning pain in his feet. Patient is diabetic with end-stage renal disease currently on hemodialysis for the last couple years with his last dialysis treatment today. He has a history of neuropathy involving his feet for which she is on Lyrica. He states sometimes the burning pain becomes too much for him to handle and that brings him to the emergency department. No other new symptoms are reported. He has had surgery on the right foot for Charcot deformity. He has an ulcer on the plantar surface of the right foot for which he follows up with wound clinic at [facility] and he states that the ulcer is better than before. He is also being worked up for possible renal transplant at [facility]. No recent infectious symptoms are reported. Related Data Home Medications ?Medication ?Instructions ?Recorded ?Confirmed B complex 11-folic acid 1 mg-C 100 1 tab PO DAILY 08/29/24 04/06/25 mg-biotin 300 mcg-zinc 50 mg tablet (Dialyvite) anastrozole 1 mg tablet 1 mg PO DAILY 08/29/24 04/06/25 aspirin 81 mg chewable tablet 1 tab PO DAILY 08/29/24 04/06/25 atorvastatin 20 mg tablet 20 mg PO DAILY 08/29/24 04/06/25 calcitriol 0.25 mcg capsule 0.25 mcg PO QWEEK 08/29/24 04/06/25 carvedilol 6.25 mg tablet 6.25 mg PO Q12H 08/29/24 04/06/25 escitalopram oxalate 10 mg tablet 10 mg PO DAILY 08/29/24 04/06/25 furosemide 80 mg tablet 80 mg PO Q12H 08/29/24 04/06/25 insulin glargine 100 unit/mL (3 60 unit subcut QAM 08/29/24 04/06/25 mL) subcutaneous pen (Lantus Solostar U-100 Insulin) insulin lispro 100 unit/mL 10 unit subcut .meal 08/29/24 04/06/25 subcutaneous pen (Humalog KwikPen (U-100) Insulin) levothyroxine 100 mcg tablet 100 mcg PO DAILY 08/29/24 04/06/25 pregabalin 150 mg capsule 150 mg PO TID 08/29/24 04/06/25 sevelamer carbonate 800 mg tablet 800 mg PO TID 08/29/24 04/06/25 tenapanor 30 mg tablet (Xphozah) 30 mg PO DAILY 08/29/24 04/06/25 testosterone 1.62 % (20.25 mg/1.25 1 packet topical DAILY 08/29/24 04/06/25 gram) transdermal gel packet trazodone 50 mg tablet 50 mg PO QPM 08/29/24 04/06/25 methocarbamol 500 mg tablet 500 mg PO Q8H PRN back spasms 01/02/25 04/06/25 midodrine 10 mg tablet 10 mg PO .during dialysis PRN low 01/02/25 04/06/25 bp amitriptyline 10 mg tablet 10 mg PO DAILY 04/06/25 04/06/25 bumetanide 2 mg tablet 2 mg PO Q12H 04/06/25 04/06/25 calcium acetate(phosphat bind) 667 1,334 mg PO TID 04/06/25 mg capsule Previous Rx's ?Medication ?Instructions ?Recorded methocarbamol 500 mg tablet 500 mg PO Q8H PRN muscle pain #10 04/04/25 tabs oxycodone-acetaminophen 5 mg-325 1 tab PO Q4H PRN pain #6 tabs 04/04/25 mg tablet (Percocet) oxycodone-acetaminophen 5 mg-325 1 tab PO TID PRN pain 4 days #12 04/06/25 mg tablet (Percocet) tabs Allergies Allergy/AdvReac Type Severity Reaction Status Date / Time vancomycin AdvReac Severe rash Verified 04/06/25 19:47 adhesive AdvReac Intermediate rash Verified 04/06/25 19:47 latex AdvReac Mild Rash Verified 04/06/25 19:47 sunflower seed AdvReac Mild Congested Verified 04/06/25 19:47 Opioid HPI Opioid Management Most Recent Opioid Data: Last Pain Scale 10 04/04/25, 14:23 Last MAR Pain Assessment 04/04/25, 14:23 Review of Systems ROS Status of ROS 10 or more systems reviewed and unremarkable except as noted in history and below [facility] Medical History Diabetes ?E11.9 - Type 2 diabetes mellitus without complications (ICD-10) Hypertension ?I10 - Essential (primary) hypertension (ICD-10) Leukemia ?C95.90 - Leukemia, 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 (ICD-10) Surgical History H/O foot surgery ?Z98.890 - Other specified postprocedural states (ICD-10) H/O right heart catheterization ?Z98.890 - Other specified postprocedural states (ICD-10) Social History Little interest or pleasure in doing things: not at all Feeling down, depressed, or hopeless: not at all Exam Narrative Exam Narrative: Patient appears in mild discomfort due to his pain. He is obese in appearance and mildly hypertensive. HEENT exam is normal to inspection. Neck is supple. Lung sounds are grossly clear. Heart has regular rate and rhythm. Abdomen is soft, protuberant and nontender. He does not have any redness or rash involving the lower back other than for a moderately large subcutaneous lipoma in the left paralumbar soft tissue. He has a functioning AV fistula in the left forearm. Lower extremities are examined. Patient has puffiness and deformity of the right foot with surgical scars consistent with his history of Charcot foot with surgery. Both feet are warm and he has impaired sensation in both big toes. He has not ulcer on the plantar surface of the right foot overlying the first MTP joint region. This burrows into the subcutaneous tissue but there is no obvious sign of infection. The heel has some cracking of the skin. Tone and power are normal and symmetric in the lower extremities. Gait is normal. Constitutional Vital Signs, click to edit/add: Last Vital Signs Temp 99.2 F 04/06/25 19:47 Pulse 73 04/06/25 19:47 Resp 20 04/06/25 19:47 BP 186/90 H 04/06/25 19:47 Pulse Ox 97 04/06/25 19:47 O2 Del Method Room Air 04/06/25 19:47 Course Vital Signs Vital signs: Vital Signs Temperature 99.2 F 08/01/25 19:47 Pulse Rate 73 04/06/25 19:47 Respiratory Rate 20 04/06/25 19:47 Blood Pressure 186/90 H 04/06/25 19:47 Pulse Oximetry 97 04/06/25 19:47 Oxygen Delivery Method Room Air 04/06/25 19:47 Temperature 99.2 F 04/06/25 19:47 Pulse Rate 73 04/06/25 19:47 Respiratory Rate 20 04/06/25 19:47 Blood Pressure 186/90 H 04/06/25 19:47 Pulse Oximetry 97 04/06/25 19:47 Oxygen Delivery Method Room Air 04/06/25 19:47 Medical Decision Making MDM Narrative Medical decision making narrative: Patient presents with worsening of known neuropathic pain in his feet. He will be treated symptomatically with Dilaudid 1 mg IM and has been placed on Percocet tablets 3 times daily as needed pain with 12 tablets dispensed which will get him through the weekend. He is to contact his PCP after the weekend for further management. He may return anytime for worsening symptoms. Discharge Plan Discharge Chief Complaint: Extremity Injury, Lower Clinical Impression: Neuropathic pain Patient Disposition: Home, Self-Care Time of Disposition Decision: 20:12 Condition: Fair Mode of Transportation: Private Vehicle Prescriptions / Home Meds: New oxycodone-acetaminophen [Percocet] 5-325 mg tablet 1 tab PO TID PRN (Reason: pain) 4 Days Qty: 12 0RF No Action methocarbamol 500 mg tablet 500 mg PO Q8H PRN (Reason: back spasms) midodrine 10 mg tablet 10 mg PO .during dialysis PRN (Reason: low bp) anastrozole 1 mg tablet 1 mg PO DAILY aspirin 81 mg tablet,chewable 1 tab PO DAILY atorvastatin 20 mg tablet 20 mg PO DAILY Dialyvite [id number] ff-wi-zam-mg tablet 1 tab PO DAILY calcitriol 0.25 mcg capsule 0.25 mcg PO QWEEK carvedilol 6.25 mg tablet 6.25 mg PO Q12H escitalopram oxalate 10 mg tablet 10 mg PO DAILY pregabalin 150 mg capsule 150 mg PO TID furosemide 80 mg tablet 80 mg PO Q12H insulin glargine [Lantus Solostar U-100 Insulin] 100 unit/mL (3 mL) insulin pen 60 unit SUBCUT QAM insulin lispro [Humalog KwikPen Insulin] 100 unit/mL insulin pen 10 unit SUBCUT .meal Patient Comments: unknown ? levothyroxine 100 mcg tablet 100 mcg PO DAILY sevelamer carbonate 800 mg tablet 800 mg PO TID Xphozah 30 mg tablet 30 mg PO DAILY testosterone 1.62 % (20.25 mg/1.25 gram) gel in packet 1 packet topical DAILY trazodone 50 mg tablet 50 mg PO QPM oxycodone-acetaminophen [Percocet] 5-325 mg tablet 1 tab PO Q4H PRN (Reason: pain) Qty: 6 0RF methocarbamol 500 mg tablet 500 mg PO Q8H PRN (Reason: muscle pain) Qty: 10 0RF amitriptyline 10 mg tablet 10 mg PO DAILY bumetanide 2 mg tablet 2 mg PO Q12H calcium acetate(phosphat bind) 667 mg capsule 1,334 mg PO Print Language: Portuguese Instructions: Diabetic Neuropathy (ED) Additional Instructions: Follow-up with your physician after the weekend. Return for worsening symptoms. Referrals: ANGEL RICKETTS [Primary Care Provider, Family Practice] - 1 week Discharge Date/Time: 04/06/25 20:27
== END 2025-04-06 20:27 | disposition home or self-care (01) ==
PROVIDERS: Emergency Provider Emergency Medicine; PCP Family Medicine
DX: E11.40 Type 2 diabetes mellitus with diabetic neuropathy, unspecified (principal); E11.22 Type 2 diabetes mellitus with diabetic chronic kidney disease; N18.6 End stage renal disease; Z99.2 Dependence on renal dialysis; Z79.4 Long term (current) use of insulin
CPT/HCPCS: 96372; 99284; J1171

== ENCOUNTER 2025-04-10 17:26 | Emergency (ER) | payer MEDICARE, SELFPAY ==
--- OUTSIDE RECORDS SUMMARY | 2023-11-17 06:51 | XMS_ITS ---
Author Organization [facility] in [place] Address [address] [place] [address] Care Team Providers Care Wash Oil Pump Operator Helper Name Role Phone Idania Gaston DO Primary Care Provider Unava Augusta Porter Unavailable [phone] REASON FOR VISIT [facility] Encounters Encounter Location Date Provider Diagnosis [facility] [place] [address] [place] [phone] 11/17/2023 Augusta Hill Plan Of Treatment No Information Progress Notes * Mina FORTEDOB:[birth year] (53 yo M)Acc No.[id number]:11/17/2023 Patient: Mina Merino :1970 A ge:53 Y S ex:Male Address:[facility] [address] [place], [address] * true * Date: Generated for Printi ng/Faxing/eTransmitting on: 0 04/10/2025 12:10 PM EDT
--- OUTSIDE RECORDS SUMMARY | 2025-03-28 23:56 | XMS_ITS | Encounter Summary ---
Author Organization [facility] tem Address [id number] [address] [place] [address] Care Team Providers Care Training Mgr Name Role Phone Idania Gaston DO Primary Care Provider [phone] Reason for Visit * Reason Comments Back Pain Foot Pain Pt states he has spi nal stenosis and is awaiting an appt with pain mgmt. He states he is looking for a little relief until then Encounter Details Date Type Department Care Team (Late st Contact Info) Description 03/28/2025 11:56 PM EDT - 03/29/2025 12:25 AM EDT Emergency [facility] - Emergency [address] [place] [address] Donnie Fontenot MD [address] [place], [place] [id number] Chronic low back pain without sciatica, unspecified back pain laterality (Primary Dx) Discharge Disposition: Home Social History Tobacco Use Types Packs/Day Years Used Date Smoking Tobacco: Never Smokeless Tobacco: Current Chew Alcohol Use Standard Drinks/Week Comments No 0 [...] got money to buy more. Never True 03/29/2025 Within the past 12 months th e food we bought just didn't last and we didn't have money to get more. Never True 03/29/2025 Purpose - Life Answer Date Recorded Purpose and direction in life Unknown Sex and Gender Information Value Date Recorded Sex Assigned at Not on file Legal Sex Male 12:06 PM EDT Gender Identity Not on file Sexual Orientation Not on file documented as of this encounter Last Filed Vital Signs Vital Sign Reading Time Taken Comments Blood Pressure 188/86 03/29/2025 12:03 AM EDT Pulse 87 03/29/2025 12:00 AM EDT Temperature 36.7 C (98 F) 03/29/2025 12:00 AM EDT Respiratory Rate 20 03/29/2025 12:00 AM EDT Oxygen Saturation 97% 03/29/2025 12:00 AM EDT Inhaled Oxygen Concentration - - Weight 136.1 kg (300 lb) 03/29/2025 12:00 AM EDT Height 188 cm (6' 2 ) 03/29/2025 12:00 AM EDT Body Mass Index 38.52 03/29/2025 12:00 AM EDT documented in this encounter Discharge Instructions * Attachments The following attachments cannot be sent through Care Everywhere. * Low back pain in adults (Icelandic) documented in this encounter Medications at Time of Discharge aspirin 81 mg chewable tablet Chew 1 tablet (81 mg total) and swallow in the morning. 06/22/2024 atorvastatin (LIPITOR) 20 mg tablet Take 1 tablet (20 mg total) by mouth in the morning. gabapentin (NEURONTIN) 100 mg capsule Take 200 mg by mouth 4 (four) times a day. insulin lispro protamin-lispro (HumaLOG Mix 50-50 KwikPen) 100 unit/mL (50-50) insulin pen Inject under the skin in the morning and in the evening. Inject before meals. 100u am 90u at dinnertime. levothyroxine sodium (TIROSINT) 25 mcg capsule Take 3 capsules (75 mcg total) by mouth in the morning. lisinopril (PRINIVIL,ZESTRIL ) 10 mg tablet Take 1 tablet (10 mg total) by mouth in the morning. pregabalin (LYRICA) 150 mg capsule Take 1 capsule (150 mg total) by mouth in the morning and 1 capsule (150 mg total) before bedtime. sevelamer (RENVELA) 800 mg tablet TAKE 2 TABLETS BY MOUTH THREE TIMES DAILY WITH MEALS 07/26/2024 HYDROcodone-aceta minophen (NORCO) 5-325 mg per tabletIndications :Chronic low back pain without sciatica, unspecified back pain laterality Take 1 tablet by mouth every 6 (six) hours as needed for pain for up to 3 days. Max Daily Amount: 4 tablets 12 tablet 03/29/2025 documented as of this encounter ED Notes * Donnie Fontenot MD - 03/29/2025 12:08 AM EDT Images from the original note were not included. [facility] - EMERGENCY Pt Name: Mina Forte Jr. Birthdate: 1970 Chief Complaint: Chief Complaint Patient presents with Back Pain Foot Pain Pt states he has spinal stenosis and is awaiting an appt with pain mgmt. He states he is looking for a little relief until then History of Present Illness: Presents for evaluation of chronic low back pain with radiculopathy. These symptoms have been goingon for a long time his current in the process of being referred to pain management by his regular doctor. These symptoms are the same as previous. No bowel or bladder incontinence retention no saddleparesthesias no weakness History provided by: Patient Past Medical History: Past Medical History: Diagnosis Date Diabetes mellitus [place] Diabetes mellitus type 2, controlled [place] Hyperlipidemia Hypothyroid Obesity Past Surgical History: History reviewed. No pertinent surgical history. Family History: Family History Problem Relation Age of Onset Heart attack Father Social History: Social History Socioeconomic History Marital status: Tobacco Use Smoking status: Never Smokeless tobacco: Current Types: Chew Vaping Use Vaping status: Never Used Substance and Sexual Activity Alcohol use: No Drug use: No Social Drivers of Health Financial Resource Strain: Medium Risk (12/05/2024) Received from [facility] Overall Financial Resource Strain (CARDIA) Difficulty of Paying Living Expenses: Somewhat hard Food Insecurity: No Food Insecurity (03/29/2025) Hunger Screening Food Insecurity - Worry: Never True Food Insecurity - Inability: Never True Transportation Needs: No Transportation Needs (12/05/2024) Received from [facility] PRAPARE - Transportation Lack of Transportation (Medical): No Lack of Transportation (Non-Medical): No Physical Activity: Insufficiently Active (12/05/2024) Received from [facility] Exercise Vital Sign Days of Exercise per Week: 3 days Minutes of Exercise per Session: 30 min Stress: Stress Concern Present (12/05/2024) Received from [facility] [place] [employer] Occup[employer] - Occupational Stress Questionnaire Feeling of Stress : To some extent Social Connections: Socially Integrated (12/05/2024) Received from [facility] Social Connection and Isolation Panel [NHANES] Frequency of Communication with Friends and Family: More than three times a week Frequency of Social Gatherings with Friends and Family: Three times a week Attends Orthodox Services: 1 to 4 times per year Active Member of Clubs or Organizations: Yes Attends Club or Organization Meetings: 1 to 4 times per year Marital Status: Interpersonal Safety: Not At Risk (12/21/2024) Received from [facility] Humiliation, Afraid, Rape, and Kick questionnaire Fear of Current or Ex-Partner: No Emotionally Abused: No Physically Abused: No Sexually Abused: No Housing Instability: High Risk (12/05/2024) Received from [facility] Housing Stability Vital Sign Unable to Pay for Housing in the Last Year: Yes Homeless in the Last Year: No Review of Systems: Review of Systems Physical Exam: ED Triage Vitals Temp Heart Rate Resp BP SpO2 03/29/25 0000 03/29/25 0000 03/29/25 0000 03/29/25 0003 03/29/25 0000 36.7 ??C (98 ??F) 87 20 188/86 97 % Temp src Heart Rate Source Patient Position BP Location FiO2 (%) -- -- -- -- -- Vitals: 03/29/25 0000 03/29/25 0003 BP: 188/86 Temp: 36.7 ??C (98 ??F) Pulse: 87 Resp: 20 SpO2: 97% Height: 188 cm (6' 2 ) Weight: 136.1 kg (300 lb) Physical Exam Vitals and nursing note reviewed. Constitutional: General: He is not in acute distress. Appearance: Normal appearance. He is obese. He is not ill-appearing or toxic-appearing. HENT: Head: Normocephalic and atraumatic. Cardiovascular: Rate and Rhythm: Normal rate and regular rhythm. Pulses: Normal pulses. Heart sounds: Normal heart sounds. No murmur heard. No friction rub. No gallop. Pulmonary: Effort: Pulmonary effort is normal. No respiratory distress. Breath sounds: Normal breath sounds. No stridor. No wheezing, rhonchi or rales. Chest: Chest wall: No tenderness. Abdominal: General: Abdomen is flat. There is no distension. Palpations: There is no mass. Tenderness: There is no abdominal tenderness. There is no guarding or rebound. Hernia: No hernia is present. Skin: Capillary Refill: Capillary refill takes 2 to 3 seconds. Neurological: General: No focal deficit present. Mental Status: He is alert and oriented to person, place, and time. Cranial Nerves: No cranial nerve deficit. Sensory: No sensory deficit. Motor: No weakness. Coordination: Coordination normal. Gait: Gait normal. Deep Tendon Reflexes: Reflexes normal. Procedure: Procedures Re-evaluation: Re-Evaluation Medical Decision Making My exam the patient is nontoxic well-appearing no acute distress. He has mild paraspinal lumbar muscle spasm and tenderness but no bony tenderness. There is a normal neurologic exam there was no weakness in lower extremities sensation light touch proprioception strength and reflexes intact and equal all extremities. No signs of cauda equina AAA or dissection or other acute process that would warrant intervention at this time. I reviewed his OARRS report he has had a few narcotic prescriptions this month but they are not overlapping. I do feel comfortable with giving him a 3 day supply but I told him any further narcotics should come from a different physician not the ER. Risk Prescription drug management. ED Course: Clinical Impressions as of 03/29/25 0008 Chronic low back pain without sciatica, unspecified back pain laterality . ED Disposition ED Disposition Discharge Date/Time WedMar 29, 2025 12:06 AM Comment At the time of discharge, the plan has been discussed with the patient regarding the diagnosis and prognosis. All questions have been answered. Verbal discharge instructions were discussed with the patient. The patient has been advised to follow up w ith their Specialist within 1 week. The patient was also instructed to return to the ED if their symptoms change, worsen, new symptoms arise or if they have any additional concerns. Medications Prescribed this Visit Sig HYDROcodone-acetaminophen (NORCO) 5-325 mg per tablet Take 1 tablet by mouth every 6 (six) hours asneeded for pain for up to 3 days. Max Daily Amount: 4 tablets . Please note that portions of this note were completed with a voice recognition program. Efforts were made to edit the dictations but occasionally words are mis-transcribed. Donnie Fontenot MD 03/29/25 0010 documented in this encounter Plan of Treatment Upcoming Encounters Date Type Department Care Team (Latest Contact Info) Description 04/27/2025 1:55 PM EDT Hospital Encounter [facility] - Pain Procedures [address] [place] [phone] Tyshawn Jacobson MD [address] [facility] [address] 04/27/2025 1:55 PM EDT - 04/27/2025 2:02 PM EDT Surgery [facility] - Pain Procedures [address] [place] [id number] Tyshawn Jacobson MD [address] [facility] [place] [address] INJECTION BLOCK EPIDURAL CAUDAL STEROID [39175 (CPT )] 05/10/2025 1:00 PM EDT Office Visit [facility] - Pain Management Clinic [address] [facility] [phone] Maciej Roldan PA [address] [place] [address] 05/17/2025 10:30 AM EDT Office Visit [facility] [address] [place] [address] [place] [phone] Chintan Quinn DO [address] [place] [address], [address] [place], [place] [id number] Scheduled Procedures Name Priority Associated Diagnoses Date/Ti me INJECTION BLOCK EPIDURAL CAUDAL STEROID Spinal stenosis of lumbar region with neurogenic claudication 04/27/2025 1:55 PM EDT documented as of this encounter Visit Diagnoses Diagnosis Chronic low back pain without sciatica, unspecified back pain laterality- Primary Spinal stenosis of lumbar region with neurogenic claudication documented in this encounter Care Teams Training Mgr Relationship Specialty Start Date End Date Idania Gaston DO [address] [place] [address] PCP - General 06/15/18 documented as of this encounter
--- OUTSIDE RECORDS SUMMARY | 2025-04-05 10:00 | XMS_ITS | Encounter Summary ---
Author Organization [facility] tem Address [id number] [address] [place] [address] Care Team Providers Care Steam Powerplant Supervisor Name Role Phone Idania Gaston DO Primary Care Provider [phone] Reason for Referral * Misc (Routine) - Pending Review Specialty Diagnoses / Procedures Referred By Contac t Referred To Contact Diagnoses Spinal stenosis of lumbar region with neurogenic claudication Procedures Case request operating room: INJECTION BLOCK EPIDURAL CAUDAL STEROID Maciej Roldan PA [address] [place] [address] Phone: tel: fax: Referral ID Status Reason Start Date Expiration Date V isits Requested Visits Authorized [id number] Pending Review 04/05/2025 04/05/2026 1 1 Reason for Visit * Reason Comments Back Pain Encounter Details Date Type Department Care Team (Late st Contact Info) Description 04/05/2025 10:00 AM EDT Office Visit [facility] [address] [place] [phone] Maciej Roldan PA [address] [place], [place] [id number] Spinal stenosis of lumbar region with neurogenic claudication (Primary Dx); Diabetic peripheral neuropathy (CMS-HCC) Social History Tobacco Use Types Packs/Day Years [...] got money to buy more. Never True 04/05/2025 Within the past 12 months th e food we bought just didn't last and we didn't have money to get more. Never True 04/05/2025 Purpose - Life Answer Date Recorded Purpose and direction in life Unknown Sex and Gender Information Value Date Recorded Sex Assigned at Not on file Legal Sex Male 12:06 PM EDT Gender Identity Not on file Sexual Orientation Not on file documented as of this encounter Last Filed Vital Signs Vital Sign Reading Time Taken Comments Blood Pressure 204/91 04/05/2025 9:40 AM EDT just took am meds Pulse 69 04/05/2025 9:40 AM EDT Temperature - - Respiratory Rate 18 04/05/2025 9:40 AM EDT Oxygen Saturation 98% 04/05/2025 9:4 0 AM EDT Inhaled Oxygen Concentration - - Weight 152.4 kg (336 lb) 04/05/2025 9:4 0 AM EDT Height 188 cm (6' 2 ) 04/05/2025 9:40 AM EDT Body Mass Index 43.14 04/05/2025 9:40 AM EDT documented in this encounter Patient Instructions * Patient Instructions* Minda Paiz CNA - 04/05/2025 10:00 AM EDT Epidural Steroid Injection (AMBER) / Nerve Root Injection / Nerve Block These procedure(s) involve the injection of a steroid and anesthetic into the epidural space or thenerve sheath that is both diagnostic and potentially therapeutic for alleviating discomfort of the legs and arms secondary to compression of the respective nerves due to bulging discs, bone spurs andother potential causes. Steroids are potent anti-inflammatory drugs that act to decrease the swollen and inflamed nerves thus relieving your clinical symptoms. How Long Will This Procedure Last? The extent and duration of pain relief may depend on the amount of inflammation and how many areas are involved. Other coexisting factors may be responsible for your pain. You and your physician will discuss expected results of procedure(s). After Your Injection You may experience soreness and tenderness at the area of treatment. This pain may not occur until later today after the numbing medicine wears off. The steroid can take 3-5 days to work and provide noticeable improvement. Activity You may feel temporary numbness, weakness or tingling: In the neck, arm, or fingertips (if your procedure was done in your neck) In the legs (if your procedure was done in your lower back) These symptoms are normal, and should subside within 3-4 hours. In that time, be careful to avoid falls. As a safety precaution, you must have a wedding transportation driver after a lumbar nerve root injection, even if you do not receive sedation. Resume activity as tolerated when function has returned. Medications Resume your routine medications after your procedure. You may resume blood thinners per your regular schedule after the procedure. If you received sedation: If you received sedation for your procedure, you may feel sleepy or not ???yourself?? for several hours today. For the next 24 hours avoid activities that requires alertness or coordination. This includes: Driving or operating heavy machinery Using power tools Consuming alcohol Do not make important or complex decisions or sign legal documents in the next 24 hours. Other Instructions: If you feel severe pain at the injection site with swelling and redness, increased leg weakness, a fever of 101 or higher, headache (or worsening headache), changes in vision or urinary retention: Please call the office at , or have someone take you to the nearest emergency room. Tellthe emergency room staff that you recently had a spine injection. A doctor must evaluate you for bleeding and injection complications. If you lose control over bowel, bladder, or legs: Go to the nearest emergency room. If you are diabetic, the steroids used in this procedure can increase your blood sugar. If your blood sugar is 250mg/dL or higher, contact your primary care physician, or the doctor who manages your diabetes, to discuss how to get it back to normal. documented in this encounter Progress Notes * KAREN Box - 04/05/2025 10:00 AM EDT [facility] [address] [place] [address] Patient: Mina Forte Jr. Sex: male : 1970 Age: 55 y.o. PCP: IDANIA GASTON, DO 04/05/2025 Mina Forte Jr. is here for a(n) initial consultation for low back pain. Patient also has diabetic peripheral neuropathy in his feet. Chief Complaint Patient presents with Back Pain HPI: Back Pain This is a chronic problem. The current episode started more than 1 year ago (chronic). The problem occurs constantly. The problem has been gradually worsening since onset. The pain is present in the lumbar spine. The quality of the pain is described as aching. The pain does not radiate (slim feet with neuropathy). The pain is at a severity of 10/10 (2/10 to back and 10/10 to slim feet). The pain issevere. The pain is The same all the time. Exacerbated by: activityby wearing shoes (with foot pain) Stiffness is present In the morning (stiff back). Associated symptoms include numbness (slim feet) and tingling (slim feet). Pertinent negatives include no bladder incontinence, bowel incontinence, chest pain, fever, leg pain or weakness. Risk factors include poor posture, obesity, sedentary lifestyle and lack of exercise. Treatments tried: rest,ice/heat, tens unit meds: nsaids (no due ckd), norco/perc/tramdol, cymbalta, elavil, magno/lyrica, quetenza, lido/biofreeze,tylenol with little to no relief. The treatment provided moderate relief. The effect of pain on patient's ADLS: Moderate Impairment. Past Medical History: Diagnosis Date CKD (chronic kidney disease) hd on 5-9am via left avf Diabetes mellitus ([facility]) Diabetes mellitus type 2, controlled ([facility]) Hyperlipidemia Hypothyroid Obesity Past Surgical History: Procedure Laterality Date CARDIAC CATHETERIZATION 12/2024 last one (2 total) FISTULA CREATION Left FOOT SURGERY Right Allergies Allergen Reactions Vancomycin Hives [place] Seed Abdominal Pain Runny nose, watery eyes Family History Problem Relation Age of Onset Heart attack Father Social History Socioeconomic History Marital status: Spouse name: Not on file Number of children: Not on file Years of education: Not on file Highest education level: Not on file Occupational History Not on file Tobacco Use Smoking status: Never Smokeless tobacco: Current Types: Chew Vaping Use Vaping status: Never Used Substance and Sexual Activity Alcohol use: No Drug use: No Sexual activity: Not on file Other Topics Concern Not on file Social History Narrative Not on file Social Drivers of Health Financial Resource Strain: Medium Risk (12/05/2024) Received from [facility] Overall Financial Resource Strain (CARDIA) Difficulty of Paying Living Expenses: Somewhat hard Food Insecurity: No Food Insecurity (04/05/2025) Hunger Screening Food Insecurity - Worry: Never True Food Insecurity - Inability: Never True Transportation Needs: No Transportation Needs (12/05/2024) Received from [facility] PRAPARE - Transportation Lack of Transportation (Medical): No Lack of Transportation (Non-Medical): No Physical Activity: Insufficiently Active (12/05/2024) Received from [facility] Exercise Vital Sign Days of Exercise per Week: 3 days Minutes of Exercise per Session: 30 min Stress: Stress Concern Present (12/05/2024) Received from [facility] [place] [employer] Occupational [employer] - Occupational Stress Questionnaire Feeling of Stress : To some extent Social Connections: Socially Integrated (12/05/2024) Received from [facility] Social Connection and Isolation Panel [NHANES] Frequency of Communication with Friends and Family: More than three times a week Frequency of Social Gatherings with Friends and Family: Three times a week Attends Sikhism Services: 1 to 4 times per year Active Member of Clubs or Organizations: Yes Attends Club or Organization Meetings: 1 to 4 times per year Marital Status: Interpersonal Safety: Not At Risk (12/21/2024) Received from [facility] Humiliation, Afraid, Rape, and Kick questionnaire Fear of Current or Ex-Partner: No Emotionally Abused: No Physically Abused: No Sexually Abused: No Housing Instability: High Risk (12/05/2024) Received from [facility] Housing Stability Vital Sign Unable to Pay for Housing in the Last Year: Yes Number of Times Moved in the Last Year: Not on file Homeless in the Last Year: No Review of Systems Constitutional: Negative. Negative for chills, fatigue and fever. Respiratory: Positive for shortness of breath (r/t dialysis). Negative for cough. Cardiovascular: Negative. Negative for chest pain. Gastrointestinal: Negative. Negative for bowel incontinence. Genitourinary: Negative. Negative for bladder incontinence. Musculoskeletal: Positive for back pain. Skin: Positive for wound (Right foot would chronic (3 years)). Negative for rash. Left AVF Neurological: Positive for tingling (slim feet) and numbness (slim feet). Negative for weakness. Hematological: Negative. Does not bruise/bleed easily. Psychiatric/Behavioral: Negative. Negative for self-injury and suicidal ideas. Vital Signs: BP (!) 204/91 Comment: just took am meds Pulse 69 Resp 18 Ht 188 cm (6' 2 ) Wt (!) 152.4 kg(336 lb) SpO2 98% BMI 43.14 kg/m?? Physical Exam: GENERAL - Healthy patient that appears stated age. HEENT - Normocephalic / Atraumatic, Extraoccular movements intact, trachea midline, thyroid within normal limits. CV - pulse regular, Warm extremities with appropriate color of nailbeds. RESP - No obvious wheezing, No Shortness of Breath, No overexertion response to exam maneuvers. COORDINATION - remains intact. PSYCH - Alert and Oriented x4, Attentive and appropriate, constitutionally normal, displays normal mood and affect per situation, answered questions appropriately during examination, demonstrated appropriate attention during discussion, demonstrated appropriate cognitive reasoning and understandingof the medical condition by asking appropriate questions regarding the diagnosis and risks/benefits/alternatives of treatment modalities. No obvious deficits in memory, reasoning, or intellect. Lumbar: SKIN - No rashes or bruising in the area of the patient???s pain. LYMPH NODES - demonstrate no obvious enlargement. EXTREMITIES - Lower extremities are warm, with minimal edema and palpable pulses. Tenderness to palpation noted in the lumbar spine and paraspinal musculature. Pain is elicited withflexion, extension, and lateral rotation of the lumbar spine. Range of motion is diminished with these motions due to pain. Facet palpation is noted to be somewhat tender and facet loading maneuvers are mildly positive, but not concordant with the patient???s normal pain complaints. STRENGTH - noted to be 5 out of 5 all muscle groups bilateral lower extremities including muscles involving hip flexion and abduction, knee flexion and extension, as well as foot dorsiflexion and plantarflexion. No notable atrophy, fasciculations or spasm. SENSORY - No notable sensory deficits in the bilateral lower extremities to touch or pinprick in all dermatomal distributions with exception to decreased sensation in the Bilateral feet. Straight Leg Raise is negative. Gait is normal. Assessment/Treatment Plan: Mina was seen today for back pain. Diagnoses and all orders for this visit: Spinal stenosis of lumbar region with neurogenic claudication - Case request operating room: INJECTION BLOCK EPIDURAL CAUDAL STEROID Diabetic peripheral neuropathy (CMS-HCC) PLAN IN OFFICE QTENZA 8% PATCH APPLICATION Qutenza R (capsaicin) 8% topical system is indicated in adults for the treatment of neuropathic pain associated with postherpetic neuralgia (PHN) and for neuropathic pain associated with diabetic peripheral neuropathy (DPN) of the feet. If successful and patient receives good relief, we can repeat the procedure every 3 months for additional and continued relief. Risks and benefits were discussed,and patient would like to proceed with the procedure. Follow up 4 weeks after procedure Caudal Epidural Steroid Injection - under fluoroscopy with the use of contrast dye (unless contraindicated) It is hopeful that the described procedure will provide symptomatic pain relief. It is felt to be medically necessary noting that the patient has tried and failed more conservative modalities of therapy and this is the next most appropriate step. The procedure was described in detail to the patientas well as the potential benefits of pain reduction alongside risks of the procedure and alternatives. Risks were described as including, but not limited to bleeding, infection, nerve damage, spinal cord injury, paralysis, stroke, dural puncture headache, and medication reaction. The patient expressed understanding regarding the risks and benefits and wishes to proceed. It was explained that Caudal injections often require a series of 2-3 before significant relief is noted, but we will determine after each injection if another one is indicated. Depending on the amount and duration of relief obtained from the injection, additional modalities of therapy including med ications and physical therapy may need to be utilized alongside or following the injections. Follow up 2 weeks after procedure The medications prescribed have been reviewed for medication interactions/contraindications and/or for upcoming procedures: continue current medication regimen without any changes. DISCUSSION: Treatment options discussed with patient and all questions answered to patient's satisfaction. Discussed the rules and regulations surrounding prescription of opioids and compliance at length. Failure to follow the rules and regulation will result in tapering and discontinuation of medications if applicable. Prescribed medication that requires intensive monitoring for toxicity We do not currently prescribeany controlled substance from this practice. The spine model was demonstrated and MRI was reviewed and used to explain the condition. Chronic conditions not treated during this visit that affected my overall medical decision making: Comorbidity- Obesity The patient does have a comorbid condition of obesity. This will be taken into account in that obesity will contribute to certain pain conditions. It can contribute to pain from degenerative disc disease as well as osteoarthritis of the joints. Many neuropathic symptoms are also amplified due to axial spine loading. Special benefits will also need to be given to procedures. Many procedures are technically more difficult in the light of severe obesity. I will also consider the possibility of undiagnosed obstructive sleep apnea (which often accompanies obesity) when prescribing any narcotic medications. I will weigh the risks and benefits and fully discuss them with the patient for these reasons. Comorbidity- Diabetes The patient has a history of diabetes mellitus currently managed with medications. This will need to be considered prior to any procedure that would require the injection of steroid in that the patient may experience a transient increase in glucose as a result. Additional consideration will need bhavna given to timing the procedure early in the morning in that the patient will need to be fasting prior to the administration of anesthesia. Every effort will be made to perform the procedure as a 1st case due to this condition. And the patient will be instructed to hold their diabetic medications on that morning. If necessary, a blood glucose test can also be performed that morning. The risks/ benefits/ and alternatives will be weighed and explained to the patient prior to any procedure. Comorbidity- End Stage Renal disease Due to the patient???s history of renal disease, special care will be used in selecting a medication regimen that will not affect or be affected by renal function. If medications that have an effect on the kidneys are necessary, they will only be instituted after careful consideration of the risks and benefits. OARRS: Reviewed. Scribe Statement: Minda Hook CNA, scribed for and in the presence of KAREN BOX who performed the above service. Minda Paiz CNA 04/05/25 [id number] KAREN Box 04/05/25 115 documented in this encounter Plan of Treatment Upcoming Encounters Date Type Department Care Team (Latest Contact Info) Description 04/27/2025 1:55 PM EDT Hospital Encounter [facility] [address] [place] [phone] Tyshawn Jacobson MD [address] [place] [address] 04/27/2025 1:55 PM EDT - 04/27/2025 2:02 PM EDT Surgery [facility] [address] [place] [phone] Tyshawn Jacobson MD [address] [place] [place] [address] INJECTION BLOCK EPIDURAL CAUDAL STEROID [37018 (CPT )] 05/10/2025 1:00 PM EDT Office Visit [facility] [address] [place] [phone] Maciej Roldan, KAREN [address] [place] [address] 05/17/2025 10:30 AM EDT Office Visit [facility] [address] [place] [address] [place] [phone] Chintan Quinn DO [address] [facility] [place], [place] [id number] Scheduled Procedures Name Priority Associated Diagnoses Date/Ti me INJECTION BLOCK EPIDURAL CAUDAL STEROID Spinal stenosis of lumbar region with neurogenic claudication 04/27/2025 1:55 PM EDT documented as of this encounter Visit Diagnoses Diagnosis Spinal stenosis of lumbar region with neurogenic claudication- Primary Diabetic peripheral neuropathy ([facility]) Type II or unspecified type diabetes mellitus with neurological manifestations, not stated as uncontrolled Spinal stenosis of lumbar region with neurogenic claudication- Primary Spinal stenosis of lumbar region with neurogenic claudication documented in this encounter Care Teams Steam Powerplant Supervisor Relationship Specialty Start Date End Date Idania Gaston DO [address] [place] [address] PCP - General 06/15/18 documented as of this encounter
--- OUTSIDE RECORDS SUMMARY | 2025-04-10 15:48 | XMS_ITS | Encounter Summary ---
Author Organization [facility] tem Address [id number] [address] [place] [address] Care Team Providers Care Internal Medicine Nurse Practitioner Name Role Phone Herolizbethaston Idania Mcfarlane DO Primary Care Provider [phone]- [phone] Reason for Visit * Reason Comments Med Refill Pt stated he needs p regabalin refilled and family doctor would not refill it for them and told him not come here Encounter Details Date Type Department Care Team (Late st Contact Info) Description 04/10/2025 3:48 PM EDT - 04/10/2025 4:16 PM EDT Emergency [facility] - Emergency [address] [place] [id number] Anxiety (Primary Dx) Discharge Disposition: Home Social History [...] got money to buy more. Never True 04/10/2025 Within the past 12 months th e food we bought just didn't last and we didn't have money to get more. Never True 04/10/2025 Purpose - Life Answer Date Recorded Purpose and direction in life Unknown Sex and Gender Information Value Date Recorded Sex Assigned at Not on file Legal Sex Male 12:06 PM EDT Gender Identity Not on file Sexual Orientation Not on file documented as of this encounter Last Filed Vital Signs Vital Sign Reading Time Taken Comments Blood Pressure 226/90 04/10/2025 3:50 PM EDT Pulse 73 04/10/2025 3:50 PM EDT Temperature 36.4 C (97.6 F) 04/10/2025 3:50 PM EDT Respiratory Rate 20 04/10/2025 3:50 PM EDT Oxygen Saturation 96% 04/10/2025 3:50 PM EDT Inhaled Oxygen Concentration - - Weight 136.1 kg (300 lb) 04/10/2025 3:50 PM EDT Height 188 cm (6' 2 ) 04/10/2025 3:50 PM EDT Body Mass Index 38.52 04/10/2025 3:50 PM EDT documented in this encounter Discharge Instructions * Discharge Instructions* LEONID Oquendo - 04/10/2025 4:10 PM EDT Thank you for choosing us for your medical care. We know you have a choice, and we appreciate you choosing us for your medical concerns! You may receive a survey from the hospital about your visit. We very much appreciate your comments and concerns. Please read all medication insert instructions and side effects when dispensed by the pharmacy. Every medication has side effects, and you may experience any of them. Please call the emergency room with any questions or concerns you have. Please call your doctor for outpatient follow up and recommendations. The emergency room cannot replace ongoing care, and it is important for your personal physician to evaluate you and monitor your health. Return to the ER for increased pain, fever > 101.5, vomiting twice, or any concern you deem emergent. Flavia Nuno CNP documented in this encounter Medications at Time of Discharge aspirin 81 mg chewable tablet Chew 1 tablet (81 mg total) and swallow in the morning. 06/22/2024 atorvastatin (LIPITOR) 20 mg tablet Take 1 tablet (20 mg total) by mouth in the morning. bumetanide (BUMEX) 1 mg tablet Take 2 tablets (2 mg total) by mouth. calcitrioL (ROCALTROL) 0.25 MCG capsule Take 1 capsule (0.25 mcg total) by mouth. calcium acetate,phosphat bind, (PHOSLO) 667 mg tablet Take 1 tablet (667 mg total) by mouth. carvediloL (COREG) 6.25 mg tablet Take 1 tablet (6.25 mg total) by mouth. gabapentin (NEURONTIN) 100 mg capsule Take 200 mg by mouth 4 (four) times a day. insulin glargine (LANTUS) 100 unit/mL injection Inject 0.6 mL (60 Units total) under the skin. insulin lispro protamin-lispro (HumaLOG Mix 50-50 KwikPen) 100 unit/mL (50-50) insulin pen Inject under the skin in the morning and in the evening. Inject before meals. 100u am 90u at dinnertime. levothyroxine sodium (TIROSINT) 25 mcg capsule Take 3 capsules (75 mcg total) by mouth in the morning. lisinopril (PRINIVIL,ZESTRI L) 10 mg tablet Take 1 tablet (10 mg total) by mouth in the morning. midodrine (PROAMATINE) 2.5 mg tablet Take 4 tablets (10 mg total) by mouth. NON FORMULARY Take 1 mg by mouth in the morning. Med Name: anaotrozole . pregabalin (LYRICA) 150 mg capsule Take 1 capsule (150 mg total) by mouth in the morning and 1 capsule (150 mg total) before bedtime. sevelamer (RENVELA) 800 mg tablet TAKE 2 TABLETS BY MOUTH THREE TIMES DAILY WITH MEALS 07/26/2024 documented as of this encounter Plan of Treatment Upcoming Encounters Date Type Department Care Team (Latest Contact Info) Description 04/27/2025 1:55 PM EDT Hospital Encounter [facility] - Pain Procedures [address] [place] [id number] Tyshawn Jacobson MD [address] [place], [place] [id number] 04/27/2025 1:55 PM EDT - 04/27/2025 2:02 PM EDT Surgery [facility] - Pain Procedures [address] [place] [phone] Tyshawn Jacobson MD [address] [place], [place] [id number] INJECTION BLOCK EPIDURAL CAUDAL STEROID [80728 (CPT )] 05/10/2025 1:00 PM EDT Office Visit [facility] - Pain Management Clinic [address] [place] [phone] Maciej Roldan PA [address] [facility] [place], [place] [id number] 05/17/2025 10:30 AM EDT Office Visit [facility] [address] [place] [address] [place] [phone] Chintan Quinn DO [address] [facility] [place], [place] [id number] Scheduled Procedures Name Priority Associated Diagnoses Date/Ti me INJECTION BLOCK EPIDURAL CAUDAL STEROID Spinal stenosis of lumbar region with neurogenic claudication 04/27/2025 1:55 PM EDT documented as of this encounter Visit Diagnoses Diagnosis Spinal stenosis of lumbar region with neurogenic claudication- Primary Anxiety- Primary Anxiety state, unspecified Spinal stenosis of lumbar region with neurogenic claudication documented in this encounter Active and Recently Administered Medications Times are shown in EDT. Scheduled Medication Order 04/08/2025 04/09/2025 04/10/2025 hydrOXYzine (ATARAX) tablet 25 mg 25 mg, oral, Once, On Wed04/10/25 at 1600, For 1 dose, Look-alike/sound-alike medication - verify indication for use. 1600 (Not Given - Pr ovider: Lyssa Hinton RN - Reason: Patient not available - Comment: Pt left ED before med admisistered.) documented in this encounter Care Teams Internal Medicine Nurse Practitioner Relationship Specialty Start Date End Date Idania Gaston DO [address] [place] [id number] PCP - General 06/15/18 documented as of this encounter
[2025-04-10 17:39] VITALS: BP 200/96; PULSE 66; TEMP 36.7; O2SAT 98; BMI 38.5
--- OUTSIDE RECORDS SUMMARY | 2025-04-10 17:48 | XMS_ITS | Encounter Summary ---
Author Organization [facility] tem Address [id number] [address] [place] [address] Care Team Providers Care Equipment Service Lead Name Role Phone Idania Gaston Primary Care Provider [phone]- [phone] Encounter Details Date Type Department Care Team (Latest Contact Info) Description 03/28/2025 Travel Social History Tobacco Use Types Packs/Day [...] Description 04/27/2025 1:55 PM EDT Hospital Encounter [facility] - Pain Procedures [address] [place] [address] Tyshawn Jacobson MD [address] [place] [address] 04/27/2025 1:55 PM EDT - 04/27/2025 2:02 PM EDT Surgery [facility] - Pain Procedures [address] [place] [address] Tyshawn Jacobson MD [address] [place] [address] INJECTION BLOCK EPIDURAL CAUDAL STEROID [06519 (CPT )] 05/10/2025 1:00 PM EDT Office Visit [facility] - Pain Management Clinic [address] [place] [address] Maciej Roldan PA [address] [facility], 2nd [place] [address] 05/17/2025 10:30 AM EDT Office Visit [facility] Family Medicine [address] [place] [address] [place] [address] Chintan Quinn DO [address] [facility] [address], [address] [place], [place] [address] Scheduled Procedures Name Priority Associated Diagnoses Date/Ti me INJECTION BLOCK EPIDURAL CAUDAL STEROID Spinal stenosis of lumbar region with neurogenic claudication 04/27/2025 1:55 PM EDT documented as of this encounter Visit Diagnoses Not on filedocumented in this encounter Care Teams Equipment Service Lead Relationship Specialty Start Date End Date Idania Gaston DO [address] [place] [address] PCP - General 06/15/18 documented as of this encounter
--- OUTSIDE RECORDS SUMMARY | 2025-04-10 17:48 | XMS_ITS | Encounter Summary ---
Author Organization [facility] tem Address [id number] [address] [place] [address] Care Team Providers Care Interior Design Faculty Member Name Role Phone Idania Gaston Primary Care Provider [phone]- [phone] Encounter Details Date Type Department Care Team (Latest Contact Info) Description 04/03/2025 Travel Social History Tobacco Use Types Packs/Day [...] Description 04/27/2025 1:55 PM EDT Hospital Encounter [facility] - Pain Procedures [address] [place] [address] Tyshawn Jacobson MD [address] [place] [address] 04/27/2025 1:55 PM EDT - 04/27/2025 2:02 PM EDT Surgery [facility] - Pain Procedures [address] [place] [address] Tyshawn Jacobson MD [address] [place] [address] INJECTION BLOCK EPIDURAL CAUDAL STEROID [36879 (CPT )] 05/10/2025 1:00 PM EDT Office Visit [facility] - Pain Management Clinic [address] [place] [address] Maciej Roldan PA [address] [facility], 2nd [place] [address] 05/17/2025 10:30 AM EDT Office Visit [facility] Family Medicine [address] [place] [address] [place] [address] Chintan Quinn DO [address] [facility], [facility] [address], [address] [place], [place] [address] Scheduled Procedures Name Priority Associated Diagnoses Date/Ti me INJECTION BLOCK EPIDURAL CAUDAL STEROID Spinal stenosis of lumbar region with neurogenic claudication 04/27/2025 1:55 PM EDT documented as of this encounter Visit Diagnoses Not on filedocumented in this encounter Care Teams Interior Design Faculty Member Relationship Specialty Start Date End Date Idania Gaston DO [address] [place] [address] PCP - General 06/15/18 documented as of this encounter
--- OUTSIDE RECORDS SUMMARY | 2025-04-10 17:48 | XMS_ITS | Encounter Summary ---
Author Organization [facility] Address [address] [place] [address] Care Team Providers Care Payment Processor Name Role Phone Idania Gaston DO Primary Care Provider +1- [phone] Idania Gaston DO Unavailable [phone] Encounter Details Date Type Department Care Team (Late st Contact Info) Description 06/23/2024 [facility] [address] [facility] [address] [place] [address] Idania Gaston, [address] [facility] [address] [place] [address] Social History Tobacco Use Types Packs/Day Years [...] on filedocumented in this encounter Care Teams Payment Processor Relationship Specialty Start Date End Date Idania Gaston DO [address] [place] [address] PCP - General Family Medicine 09/20/23 Idania Gaston DO [address] [place] [address] PCP - [facility] 09/06/23 09/05/24 documented as of this encounter
--- OUTSIDE RECORDS SUMMARY | 2025-04-10 17:48 | XMS_ITS | Encounter Summary ---
Author Organization [facility] Address [address] [place] [address] Care Team Providers Care Special Education Teaching Assistant Name Role Phone Idania Gaston DO Unavailable [phone] Idania Gaston DO Primary Care Provider + [phone] Idania Gaston DO Unavailable [phone] Encounter Details Date Type Department Care Team (Late st Contact Info) Description 10/27/2023 Abstract [facility] [address] [facility] [address] [place] [address] Idania Gaston DO [address] [facility] [address] [place] [address] Social History Tobacco Use Types Packs/Day Years [...] on filedocumented in this encounter Care Teams Special Education Teaching Assistant Relationship Specialty Start Date End Date Idania Gaston DO [address] [place] [address] PCP - Medical [place] [employer] 02/04/23 11/13/23 Idania Gaston DO [address] [place] [address] PCP - General Family Medicine 09/20/23 Idania Gaston DO [address] [place] [address] PCP - [facility] 09/06/23 09/05/24 documented as of this encounter
--- OUTSIDE RECORDS SUMMARY | 2025-04-10 17:48 | XMS_ITS | Encounter Summary ---
Author Organization [facility] Address [address] [place] [address] Care Team Providers Care Clearing Inspector Name Role Phone Idania Gaston DO Unavailable [phone] Idania Gaston DO Primary Care Provider + [phone] Idania Gaston DO Unavailable [phone] Encounter Details Date Type Department Care Team (Late st Contact Info) Description 10/18/2023 External Result Encounter [facility] External Department Unsolicited Flakito High, DO [address] [facility] [address] [place] [address] Social History Tobacco Use Types Packs/Day Years [...] AM EST) 10/18/2023 7:16 AM EST Narrative [facility] - 10/18/2023 10:49 AM EST [place] [id number] Electrocardiograph Report Signed Patient: Mina Forte MR#: [id number] : 1970 Acct:[id number] Age/Sex: 53 / M ADM Date: 10/18/23 [...] change was found Confirmed by Pedro Marroquin ([id number]) on 10/18/2023 10:49:16 AM Referred By: JAMARCUS HIGH Electronically Signed By:Pedro Marroquin Transcribed By: MUS Signed By Pedro Marroquin MD 10/18/23 1049 Procedure Note Ila Marroquin MD - 10/18/[address] [address] Electrocardiograph Report Signed Patient: Mina Forte BMR#: [id number] : 1970Acct:[id number] Age/Sex: 53 / MADM Date: 10/18/23 Loc: [...] change was found Confirmed by Pedro Marroquin ([id number]) on 10/18/2023 10:49:16 AM Referred By: JAMARCUS HIGH Electronically Signed By:Dionte Transcribed By: [facility] Signed By Pedro Marroquin MD 10/18/23 1049 us Flakito High DO ECG ORDERABLES Final Result Performing Organization Address City/State/[facility] Co de Phone Number [facility] [address] [place] [address], documented in this encounter Visit Diagnoses Not on filedocumented in this encounter Care Teams Clearing Inspector Relationship Specialty Start Date End Date Idania Gaston DO [address] [place] [address] PCP - Medical [place] [employer] 02/04/23 11/13/23 Idania Gaston DO [address] [place] [address] PCP - General Family Medicine 09/20/23 Idania Gaston DO [address] [place] [address] PCP - [facility] 09/06/23 09/05/24 documented as of this encounter
--- OUTSIDE RECORDS SUMMARY | 2025-04-10 17:48 | XMS_ITS | Clinical Summary ---
Author Organization [facility] Address [address] [place], [place] [address] Care Team Providers Care Search And Rescue Officer Name Role Phone Idania Gaston Primary Care [...] 2021 Shingrix Vaccine (1 of 2) 2021 Influenza Vaccine (#1) 2025 Insurance [facility] PPO Care Teams Search And Rescue Officer Relationship Specialty Start Date End Date Marilin Idaniakavita Rodriguez PCP - General Unspecified 07/08/12
--- OUTSIDE RECORDS SUMMARY | 2025-04-10 17:48 | XMS_ITS | Encounter Summary ---
Author Organization [facility] Address [address] [place] [address] Care Team Providers Care Residential Program Coordinator Name Role Phone Idania Gaston DO Unavailable [phone] Idania Gaston DO Primary Care Provider + [phone] Idania Gaston DO Unavailable [phone] Encounter Details Date Type Department Care Team (Late st Contact Info) Description 10/06/2023 [facility] [address] [facility] [address] [place] [address] Idania Gaston DO [address] [facility] [address] [place] [address] Social History Tobacco Use Types Packs/Day Years [...] on filedocumented in this encounter Care Teams Residential Program Coordinator Relationship Specialty Start Date End Date Idania Gaston DO [address] [place] [address] PCP - Medical [place] [employer] 02/04/23 11/13/23 Idania Gaston DO [address] [place] [address] PCP - General Family Medicine 09/20/23 Idania Gaston DO [address] [place] [address] PCP - [facility] 09/06/23 09/05/24 documented as of this encounter
--- OUTSIDE RECORDS SUMMARY | 2025-04-10 17:49 | XMS_ITS | Encounter Summary ---
Author Organization [facility] Address [address] [place] [address] Care Team Providers Care Steamship Agent Name Role Phone Idania Gaston DO Primary Care Provider [phone]- [phone] Encounter Details Date Type Department Care Team (Late st Contact Info) Description 03/26/2025 Abstract [facility] [address] [facility] [address] [place] [address] Idania Gaston DO [address] [facility] [address] [place] [address] Social History Tobacco Use Types Packs/Day Years [...] How often do you attend chur or yazidi services? 1 to 4 times per year [...] Recorded Patient Health Questionnaire-2 Score 0 10/02/2024 [facility] - Occupational Stress Questionnaire Answer Date Recorded [...] any time in the past 12 m [facility], were you homeless or living in a fci (including now)? No 12/05/2024 Sex and Gender Information Value Date Recorded Sex Assigned at Not on file Legal Sex Male 7:11 PM EDT Gender Identity Not on file Sexual Orientation Not on file documented as of this encounter Plan of Treatment Not on file documented as of this encounter Visit Diagnoses Not on filedocumented in this encounter Care Teams Steamship Agent Relationship Specialty Start Date End Date Idania Gaston DO [address] [place] [address] PCP - General Family Medicine 09/20/23 documented as of this encounter
--- OUTSIDE RECORDS SUMMARY | 2025-04-10 17:49 | XMS_ITS | Encounter Summary ---
Author Organization [facility] Address [address] [place] [address] Care Team Providers Care Distillery Miller Name Role Phone Idania Gaston DO Primary Care Provider [phone] Idania Gaston DO Unavailable [phone] Encounter Details Date Type Department Care Team (Late st Contact Info) Description 01/17/2024 [facility] [address] [facility] [address] [place] [address] Idania Gaston, [address] [facility] [address] [place] [address] Social History Tobacco Use Types Packs/Day Years [...] on filedocumented in this encounter Care Teams Distillery Miller Relationship Specialty Start Date End Date Idania Gaston DO [address] [place] [address] PCP - General Family Medicine 09/20/23 Idania Gaston DO [address] [place] [address] PCP - [facility] 09/06/23 09/05/24 documented as of this encounter
--- OUTSIDE RECORDS SUMMARY | 2025-04-10 17:49 | XMS_ITS | Encounter Summary ---
Author Organization [facility] Address [address] [place] [address] Care Team Providers Care Telegraph Editor Name Role Phone Idania Gaston DO Primary Care Provider [phone] Idania Gaston DO Unavailable [phone] Reason for Visit * Reason Comments Med Refill Encounter Details Date Type Department Care Team (Late st Contact Info) Description 05/02/2024 Refill [facility] [address] [facility] [address] [place] [address] Idania Gaston DO [address] [facility] [address] [place] [address] Type 2 diabetes mellitus with peripheral neuropathy (HCC) Social History Tobacco Use Types Packs/Day Years [...] 2 diabetes mellitus with peripheral neuropathy (HCC) documented in this encounter Care Teams Telegraph Editor Relationship Specialty Start Date End Date Idania Gaston DO [address] [place] [address] PCP - General Family Medicine 09/20/23 Idania Gaston DO [address] [place] [address] PCP - [facility] 09/06/23 09/05/24 documented as of this encounter
--- OUTSIDE RECORDS SUMMARY | 2025-04-10 17:49 | XMS_ITS | Encounter Summary ---
Author Organization [facility] Address [address] [place] [address] Care Team Providers Care Waste And Batting Waste Chopper Name Role Phone Idania Gaston DO Primary Care Provider [phone] Idania Gaston DO Unavailable [phone] Encounter Details Date Type Department Care Team (Late st Contact Info) Description 11/22/2023 Abstract [facility] [address] [facility] [address] [place] [address] Idania Gaston, [address] [facility] [address] [place] [address] Social History Tobacco Use Types Packs/Day Years [...] on filedocumented in this encounter Care Teams Waste And Batting Waste Chopper Relationship Specialty Start Date End Date Idania Gaston DO [address] [place] [address] PCP - General Family Medicine 09/20/23 Idania Gaston DO [address] [place] [address] PCP - [facility] 09/06/23 09/05/24 documented as of this encounter
--- OUTSIDE RECORDS SUMMARY | 2025-04-10 17:49 | XMS_ITS | Encounter Summary ---
Author Organization [facility] Address [address] [place] [address] Care Team Providers Care Logistics Research Engineer Name Role Phone Idania Gaston DO Primary Care Provider +1- [phone] Idania Gaston DO Unavailable [phone] Encounter Details Date Type Department Care Team (Late st Contact Info) Description 11/23/2023 External Result Encounter [facility] External Department Unsolicited Diamante Mondragon, DPM [address] [place] [address] Social History Tobacco Use Types Packs/Day Years [...] Ramirez Guadarrama M.D.11/23/2023 3:35 PM Dictation Location: [place] [address] Transcribed By: [facility] 11/23/23 1535 Dictated By: Ramirez Guadarrama DO 11/23/23 1529 Signed By: <Electronically signed by Ramirez Guadarrama DO in OV> 11/23/23 1535 Narrative 11/23/2023 3:38 PM EDT [facility] [place] [address] [place] [address] MRI Report Signed Patient: Mina Forte MR#: [id number] : 1970 Acct:[id number] Age/Sex: 53 / M ADM Date: 11/20/23 Loc: Room: [address] [place] [address] Type: ADM IN Attending Dr: Amy Escudero [...] Procedure Note Radiology, Radiologist, MD - 11/23/2023 [facility] Main [place] [address] [place], [place] [id number] MRI Report Signed Patient: Mina oFrte BMR#: [id number] : 1970Acct:[id number] Age/Sex: 53 / MADM Date: 11/20/23 Loc: Room: [id number]: ADM IN Attending Dr: Amy Escudero DO [...] Ramirez Guadarrama M.D.11/23/2023 3:35 PM Dictation Location: [place] [address] Transcribed By: [facility] 11/23/23 1535 Dictated By: Ramirez Guadarrama DO 11/23/23 1529 Signed By: <Electronically signed by Ramirez Guadarrama DO in OV> 11/23/23 1535 us Diamante Mondragon DPM IMG MRI PROCEDURES Final R esult documented in this encounter Visit Diagnoses Not on filedocumented in this encounter Care Teams Logistics Research Engineer Relationship Specialty Start Date End Date Idania Gaston DO [address] [place] [address] PCP - General Family Medicine 09/20/23 Idania Gaston DO [address] [place] [address] PCP - [facility] 09/06/23 09/05/24 documented as of this encounter
--- OUTSIDE RECORDS SUMMARY | 2025-04-10 17:49 | XMS_ITS | Encounter Summary ---
Author Organization [facility] Address [address] [place] [address] Care Team Providers Care Funeral Planning Counselor Name Role Phone Idania Gaston DO Primary Care Provider [phone]- [phone] Encounter Details Date Type Department Care Team (Late st Contact Info) Description 01/03/2025 Abstract [facility] [address] [facility] [address] [place] [address] Idania Gsaton DO [address] [facility] [address] [place] [address] Social History Tobacco Use Types Packs/Day Years [...] How often do you attend chur or mu-ism services? 1 to 4 times per year 12/05/2024 Do you belong to any clubs o r organizations such as hindu groups, unions, fraternal or athletic groups, or [...] Recorded Patient Health Questionnaire-2 Score 0 10/02/2024 [facility] - Occupational Stress Questionnaire Answer [...] any time in the past 12 m [facility], were you homeless or living in a fdc (including now)? No 12/05/2024 Sex and Gender Information Value Date Recorded Sex Assigned at Not on file Legal Sex Male 7:11 PM EDT Gender Identity Not on file Sexual Orientation Not on file documented as of this encounter Plan of Treatment Not on file documented as of this encounter Visit Diagnoses Not on filedocumented in this encounter Care Teams Funeral Planning Counselor Relationship Specialty Start Date End Date Idania Gaston DO [address] [facility] [address] [place] [address] PCP - General Family Medicine 09/20/23 documented as of this encounter
--- OUTSIDE RECORDS SUMMARY | 2025-04-10 17:49 | XMS_ITS | Encounter Summary ---
Author Organization [facility] Address [address] [place] [address] Care Team Providers Care Assistant Federal Public Defender Name Role Phone Idania Gaston DO Primary Care Provider +1- [phone] Idania Gaston DO Unavailable [phone] Encounter Details Date Type Department Care Team (Late st Contact Info) Description 11/24/2023 [facility] [address] [address] [place] [address] Idania Gaston, [address] [facility] [address] [place] [address] Social History Tobacco Use Types Packs/Day Years [...] on filedocumented in this encounter Care Teams Assistant Federal Public Defender Relationship Specialty Start Date End Date Idania Gaston DO [address] [place] [address] PCP - General Family Medicine 09/20/23 Idania Gaston DO [address] [place] [address] PCP - [facility] 09/06/23 09/05/24 documented as of this encounter
--- OUTSIDE RECORDS SUMMARY | 2025-04-10 17:49 | XMS_ITS | Encounter Summary ---
Author Organization [facility] Address [address] [place] [address] Care Team Providers Care Political Geographer Name Role Phone Idania Gaston DO Primary Care Provider +1- [phone] Encounter Details Date Type Department Care Team (Late st Contact Info) Description 09/19/2024 Abstract [facility] [address] [facility] [address] [place] [address] Idania Gaston DO [address] [place] [address] Social History Tobacco Use Types Packs/Day Years [...] on filedocumented in this encounter Care Teams Political Geographer Relationship Specialty Start Date End Date Idania Gaston DO [address] [place] [id number] PCP - General Family Medicine 09/20/23 documented as of this encounter
--- OUTSIDE RECORDS SUMMARY | 2025-04-10 17:49 | XMS_ITS | Clinical Summary ---
Author Organization [facility] Address [address] [place] [address] Care Team Providers Care Stave Mill Hand Name Role Phone Idania Gaston DO Primary Care Provider +1- [phone] Social History Tobacco Use Types Packs/Day Years Used Date Smoking Tobacco: Never Assessed Sex and Gender Information Value Date Recorded Sex Assigned at Not on file Legal Sex Male 1:13 PM EDT Gender Identity Not on file Sexual Orientation Not on file Plan of Treatment Health Maintenance Due Date Last Done Comments Cologuard (average risk only) 1970 Colonoscopy 1971 Colorectal Cancer Screening 1971 FIT (average risk only) 1971 Hepatitis C Screening 1971 DTaP,Tdap,and Td Vaccines (1 - Tdap) 1990 Hepatitis B Vaccine ages 19 years and older (1 of 3 - 19+ 3-dose series) 1990 Pneumococcal Vaccines 50year s + (1 of 1 - PCV) 2021 Zoster Recombinant Vaccines (1 of 2) 2021 COVID-19 Vaccine (1 - 2023-2 5 season) 2024 Influenza Vaccine (#1) 2025 Respiratory Syncytial Virus (RSV) or ages 60 years and older (1 - 1-dose 75+ series) 2046 Respiratory Syncytial Virus (RSV) ages 0 thru 19 months Aged Out No longer eligible based on patient's age to complete this topic Care Teams Stave Mill Hand Relationship Specialty Start Date End Date Idania Gaston DO [address] [place] [address] PCP - General Family Medicine 06/04/22
--- OUTSIDE RECORDS SUMMARY | 2025-04-10 17:49 | XMS_ITS | Encounter Summary ---
Author Organization [facility] Address [address] [place] [address] Care Team Providers Care Interactive Designer Name Role Phone Idania Gaston DO Primary Care Provider +1- [phone] Idania Gaston DO Unavailable [phone] Encounter Details Date Type Department Care Team (Late st Contact Info) Description 12/27/2023 [facility] [address] [facility] [address] [place] [address] Idania Gaston, [address] [place] [address] Social History Tobacco Use Types Packs/Day Years [...] on filedocumented in this encounter Care Teams Interactive Designer Relationship Specialty Start Date End Date Idania Gaston DO [address] [place] [address] PCP - General Family Medicine 09/20/23 Idania Gaston DO [address] [place] [address] PCP - [facility] 09/06/23 09/05/24 documented as of this encounter
--- OUTSIDE RECORDS SUMMARY | 2025-04-10 17:49 | XMS_ITS | Patient Health Record ---
Author Organization [facility] [place] Address [address] [place] [address] Care Team Providers Care Biomedical Technician Name Role Phone Herojacy Idania CALABRESE Primary Care Provider Unava ilable Allergies Allergen (clinical drug ingredient) Drug/Non Drug Allergy documented on EMR Reaction Allergy Type Onset Date Status Latex Latex Unknown Allergy Active vancomycin Vancomycin Unknown Drug Allergy Activ e Results Component Value Reference Range Notes BUN Reviewed date:01/01/2025 10:05:13 AM Interpretation: Performing Lab:[facility]), [address] [place], [place] [address]E., [address] [place] [address]. [address] PH:[phone] Notes/Report: BLOOD UREA NITROGEN 112 5-23 mg/dL PERFORME D [address] [place] [address] BUN Reviewed date:01/01/2025 10:04:21 AM Interpretation: Performing Lab:[facility] ([facility]), [address] [place] [address] AVE[address] [place] [address]. [address] PH:[phone] Notes/Report: BLOOD UREA NITROGEN 58 5-23 mg/dL PERFORME D AT [address] [address] Reason For Referral No Information Medications Medication [...] Problem Status W/U Status Risk Notes Problem 142887447 Type 2 diabetes mellitus with diabetic polyneuropathy (E11.42) Active confirmed Problem [id number] Type 2 diabete s mellitus with foot ulcer (E11.621) Active confirmed Problem [id number] Non-pressure chronic ulcer of other part of right foot with fat layer exposed (L97.512) Active confirmed Problem 244902031 Charcot's joint, unspecified site (M14.60) Active confirmed Problem 760692517 Charcot's joint, unspecified ankle and foot (M14.679) Active confirmed Problem 19133302 End stage renal disease (N18.6) Active confirmed Plan Of Treatment No Information Insurance Providers Payer Name Payer Address Payer Phone Subscriber Number Group Number Insured Name Patient Relationship to Insured Coverage Start Date Coverage End Date [facility] PR[facility] MEDICARE [address] [place] [address] [id number] Mina Savage Self - patient is the insured 4 MEDICAID [place] 2ND INS [address] OFF[place] OF [place], [place] [id number] Mina Forte Self - patient is the insured 8 Medical (General) History Medical History History ICD Code diabetes mellitus Surgical History Surgery Date(Month/Year) 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
--- OUTSIDE RECORDS SUMMARY | 2025-04-10 17:49 | XMS_ITS | Encounter Summary ---
Author Organization [facility] Address [address] [place] [address] Care Team Providers Care Granite Block Paver Name Role Phone Idania Gaston DO Primary Care Provider [phone]- [phone] Encounter Details Date Type Department Care Team (Late st Contact Info) Description 09/22/2024 Abstract [facility] [address] [facility] [place] [address] Idania Gaston DO [address] [place] [address] Social History Tobacco Use Types Packs/Day Years [...] on filedocumented in this encounter Care Teams Granite Block Paver Relationship Specialty Start Date End Date Idania Gaston DO [address] [place] [id number] PCP - General Family Medicine 09/20/23 documented as of this encounter
--- OUTSIDE RECORDS SUMMARY | 2025-04-10 17:49 | XMS_ITS | Encounter Summary ---
Author Organization [facility] Address [address] [place] [address] Care Team Providers Care Department Traffic Freight Router Name Role Phone Idania Gaston DO Primary Care Provider +1- [phone] Encounter Details Date Type Department Care Team (Late st Contact Info) Description 03/07/2025 Abstract [facility] [address] [facility] [address] [place] [address] Idania Gaston DO [address] [facility] [address] [facility] [address] [place] [address] Social History Tobacco Use Types Packs/Day Years [...] How often do you attend chur or hinduism services? 1 to 4 times per year 12/05/2024 Do you belong to any clubs o r organizations such as baptism groups, unions, fraternal or athletic groups, or [...] Recorded Patient Health Questionnaire-2 Score 0 10/02/2024 [facility] - Occupational Stress Questionnaire Answer Date Recorded [...] time in the past 12 m [facility], were you homeless or living in a alf (including now)? No 12/05/2024 Sex and Gender Information Value Date Recorded Sex Assigned at Not on file Legal Sex Male 7:11 PM EDT Gender Identity Not on file Sexual Orientation Not on file documented as of this encounter Plan of Treatment Not on file documented as of this encounter Visit Diagnoses Not on filedocumented in this encounter Care Teams Department Traffic Freight Router Relationship Specialty Start Date End Date Idania Gaston DO [address] [facility] [address] [place] [address] PCP - General Family Medicine 09/20/23 documented as of this encounter
--- OUTSIDE RECORDS SUMMARY | 2025-04-10 17:49 | XMS_ITS | Clinical Summary ---
Author Organization [facility] Address [address] [facility] [place] [address] Phone Care Team Providers Care Tie Loader Name Role Phone Unavailable Primary Care Provider [...]
--- OUTSIDE RECORDS SUMMARY | 2025-04-10 17:49 | XMS_ITS | Encounter Summary ---
Author Organization [facility] Address [address] [place] [address] Care Team Providers Care Hospital Cna Name Role Phone Idania Gaston DO Primary Care Provider [phone]- [phone] Encounter Details Date Type Department Care Team (Late st Contact Info) Description 02/06/2025 Abstract [facility] [address] [facility] [address] [place] [address] Idania Gaston DO [address] [facility] [place] [address] Social History Tobacco Use Types Packs/Day Years [...] How often do you attend chur or mandaen services? 1 to 4 times per year 12/05/2024 Do you belong to any clubs o r organizations such as judaism groups, unions, fraternal or athletic groups, or [...] Recorded Patient Health Questionnaire-2 Score 0 10/02/2024 [facility] - Occupational Stress Questionnaire Answer [...] any time in the past 12 m [facility], were you homeless or living in a penitentiary (including now)? No 12/05/2024 Sex and Gender Information Value Date Recorded Sex Assigned at Not on file Legal Sex Male 7:11 PM EDT Gender Identity Not on file Sexual Orientation Not on file documented as of this encounter Plan of Treatment Not on file documented as of this encounter Visit Diagnoses Not on filedocumented in this encounter Care Teams Hospital Cna Relationship Specialty Start Date End Date Idania Gaston DO [address] [facility] [address] [place] [address] PCP - General Family Medicine 09/20/23 documented as of this encounter
--- OUTSIDE RECORDS SUMMARY | 2025-04-10 17:49 | XMS_ITS | Encounter Summary ---
Author Organization [facility] Address [address] [place] [address] Care Team Providers Care Options Advisor Name Role Phone Idania Gaston DO Primary Care Provider +1- [phone] Encounter Details Date Type Department Care Team (Late st Contact Info) Description 03/27/2025 Abstract [facility] [address] [facility] [address] [place] [address] Idania Gaston DO [address] [facility] [facility] [facility] [address] [place] [address] Social History Tobacco Use Types Packs/Day Years [...] How often do you attend chur or congregation services? 1 to 4 times per year 12/05/2024 Do you belong to any clubs o r organizations such as mu-ism groups, unions, fraternal or athletic groups, or [...] Patient Health Questionnaire-2 Score 0 10/02/2024 [facility] - Occupational Stress Questionnaire Answer Date Recorded [...] time in the past 12 m [facility], were you homeless or living in a jail (including now)? No 12/05/2024 Sex and Gender Information Value Date Recorded Sex Assigned at Not on file Legal Sex Male 7:11 PM EDT Gender Identity Not on file Sexual Orientation Not on file documented as of this encounter Plan of Treatment Not on file documented as of this encounter Visit Diagnoses Not on filedocumented in this encounter Care Teams Options Advisor Relationship Specialty Start Date End Date Idania Gaston DO [address] [facility] 230 [place] [address] PCP - General Family Medicine 09/20/23 documented as of this encounter
--- OUTSIDE RECORDS SUMMARY | 2025-04-10 17:49 | XMS_ITS | Encounter Summary ---
Author Organization [facility] Address [address] [place] [address] Care Team Providers Care Card Checker Name Role Phone Idania Gaston DO Unavailable [phone] Petznaston, Idania Mcfarlane DO Primary Care Provider +1- [phone] Petznaston, Idania Mcfarlane DO Unavailable [phone] Petznaston, Idania Mcfarlane DO Primary Care Provider Petznaston, Idania Mcfarlane DO Unavailable [phone] Encounter Details Date Type Department Care Team (Late st Contact Info) Description 03/03/2023 [facility] [address] [facility] [address] [place] [address] Idania Gaston DO [address] [place] [address] Social History Tobacco Use Types Packs/Day Years [...] on filedocumented in this encounter Care Teams Card Checker Relationship Specialty Start Date End Date Idania Gaston DO [address] [facility] [address] [place] [address] PCP - [facility] 09/09/22 07/06/23 Idania Gaston, DO [address] [place] [address] PCP - General Family Medicine 03/02/23 09/19/23 Idania Gaston, [address] [place] [address] PCP - Medical [employer] 02/04/23 11/13/23 Idania Gaston, DO [address] [place] [address] PCP - General [facility] 09/20/23 Idania Gaston, DO [address] [place] [address] PCP - [facility] 09/06/23 09/05/24 documented as of this encounter
--- OUTSIDE RECORDS SUMMARY | 2025-04-10 17:49 | XMS_ITS | Encounter Summary ---
Author Organization [facility] Address [address] [place] [address] Care Team Providers Care Barrel Raiser Name Role Phone Idania Gaston DO Primary Care Provider +1- [phone] Reason for Referral * Consultation (Routine) - Authorized Specialty Diagnoses / Procedures Referred By Contque t Referred To Contact Pain Medicine Diagnoses Type 2 diabetes mellitus with peripheral neuropathy (HCC) Procedures TX OFFICE/OUTPATIENT [facility] 60 MINUTES Idania Gaston DO [address] [facility] [address] [place] [address] Phone: tel: fax: Tyshawn Jacobson MD [address] [place] [address] Phone: tel: fax: Referral ID Status Reason Start Date Expiration Date Visits Requested Visits Authorized [id number] Authorized Specialty Services Required 03/28/2025 09/24/2025 1 1 Reason for Visit * Reason Onset Date Comments Referral 03/27/2025 Encounter Details Date Type Department Care Team (Late st Contact Info) Description 03/27/2025 Telephone [facility] [address] [facility] [address] [place] [address] Magali Nazario MA Referral Social History Tobacco Use Types Packs/Day [...] often do you attend chur ch or synagogue services? 1 to 4 times per year [...] Recorded Patient Health Questionnaire-2 Score 0 10/02/2024 [facility] - Occupational Stress [...] any time in the past 12 m [facility], were you homeless or living in a mcfp (including now)? No 12/05/2024 Sex and Gender Information Value Date Recorded Sex Assigned at Not on file Legal Sex Male 7:11 PM EDT Gender Identity Not on file Sexual Orientation Not on file documented as of this encounter Miscellaneous Notes * Telephone Encounter - Melinda Dailey LPN - 03/29/2025 4:17 PM EDT LVM with Dr Hughes recommendations * Addendum Note - Idania Gaston DO - 03/28/2025 8:27 AM EDTAddended by: IDANIA GASTON on: 03/28/2025 08:27 AM Modules accepted: Orders * Telephone Encounter - Idania Gaston DO - 03/28/2025 8:26 AM EDT Put [facility] referral for [facility] but saw that he willingly broke his pain contract with Dr Ramos and has had multiple ER visits at different locations trying to get pain medications. Would not recommend breaking pain contracts as he will run out of options for pain doctors. * Telephone Encounter - Magali Nazario MA - 03/27/2025 9:38 AM EDT Pt requesting a referral be sent to [facility] management. Please call pt back with any questions [phone]. documented in this encounter Plan of Treatment Scheduled Referrals Name Type Priority Associated Diagnoses Order Schedule Ambulatory referral to Pain Medicine Outpatient Referral Routine Type 2 diabetes mellitus with peripheral neuropathy (HCC) Expected: 03/28/2025 (Approximate), Expires: 09/28/2025 documented as of this encounter Visit Diagnoses Diagnosis Type 2 diabetes mellitus with peripheral neuropathy (HCC)- Primary documented in this encounter Care Teams Barrel Raiser Relationship Specialty Start Date End Date Idania Gaston DO [address] [place] [id number] PCP - General Family Medicine 09/20/23 documented as of this encounter
--- OUTSIDE RECORDS SUMMARY | 2025-04-10 17:49 | XMS_ITS | Encounter Summary ---
Author Organization [facility] Address [address] [place] [address] Care Team Providers Care Prison Warden Name Role Phone Idania Gaston DO Primary Care Provider +1- [phone] Encounter Details Date Type Department Care Team (Late st Contact Info) Description 03/27/2025 Abstract [facility] [address] [facility] [address] [place] [address] Idania Gaston DO [address] [facility] [address] [place] [address] Social History Tobacco Use Types Packs/Day Years [...] any clubs o r organizations such as roman catholic groups, unions, fraternal or athletic groups, or [...] Recorded Patient Health Questionnaire-2 Score 0 10/02/2024 [facility] - Occupational Stress Questionnaire Answer [...] any time in the past 12 m [facility], were you homeless or living in a care home (including now)? No 12/05/2024 Sex and Gender Information Value Date Recorded Sex Assigned at Not on file Legal Sex Male 7:11 PM EDT Gender Identity Not on file Sexual Orientation Not on file documented as of this encounter Plan of Treatment Not on file documented as of this encounter Visit Diagnoses Not on filedocumented in this encounter Care Teams Prison Warden Relationship Specialty Start Date End Date Idania Gaston DO [address] [facility] [address] [place] [address] PCP - General Family Medicine 09/20/23 documented as of this encounter
--- OUTSIDE RECORDS SUMMARY | 2025-04-10 17:49 | XMS_ITS | Encounter Summary ---
Author Organization [facility] Address [address] [place] [address] Care Team Providers Care Aqueduct And Reservoir Keeper Name Role Phone Idania Gaston DO Primary Care Provider +1- [phone] Idania Gaston DO Unavailable Encounter Details Date Type Department Care Team (Late st Contact Info) Description 01/07/2024 Abstract [facility] [address] [facility] [address] [place] [address] Idania Gaston, [address] [facility] [address] [place] [address] Social History Tobacco Use Types Packs/Day Years [...] on filedocumented in this encounter Care Teams Aqueduct And Reservoir Keeper Relationship Specialty Start Date End Date Idania Gaston DO [address] [place] [address] PCP - General Family Medicine 09/20/23 Idania Gaston DO [address] [place] [address] PCP - [facility] 09/06/23 09/05/24 documented as of this encounter
--- OUTSIDE RECORDS SUMMARY | 2025-04-10 17:49 | XMS_ITS | Encounter Summary ---
Author Organization [facility] Address [address] [place] [address] Care Team Providers Care Field Education Director Name Role Phone Idania Gaston DO Primary Care Provider +1- [phone] Idania Gaston DO Unavailable [phone] Encounter Details Date Type Department Care Team (Late st Contact Info) Description 01/07/2024 Orders Only [facility] [address] [place] [address] Idania Gaston, [address] [place] [address] Social History Tobacco Use Types Packs/Day Years [...] on filedocumented in this encounter Care Teams Field Education Director Relationship Specialty Start Date End Date Idania Gaston DO [address] [place] [address] PCP - General Family Medicine 09/20/23 Idania Gaston DO [address] [place] [address] PCP - [facility] 09/06/23 09/05/24 documented as of this encounter
--- OUTSIDE RECORDS SUMMARY | 2025-04-10 17:49 | XMS_ITS | Encounter Summary ---
Author Organization [facility] Address [address] [place] [address] Care Team Providers Care Financial Institution Treasurer Name Role Phone Idania Gaston DO Primary Care Provider [phone]- [phone] Encounter Details Date Type Department Care Team (Late st Contact Info) Description 02/08/2025 Abstract [facility] [address] [facility] [address] [place] [address] Idania Gaston DO [address] [place] [address] Social History Tobacco Use Types Packs/Day Years [...] How often do you attend chur or gnosticist services? 1 to 4 times per year 12/05/2024 Do you belong to any clubs o r organizations such as anglican groups, unions, fraternal or athletic groups, or [...] Recorded Patient Health Questionnaire-2 Score 0 10/02/2024 [facility] - Occupational Stress Questionnaire Answer Date [...] time in the past 12 [address] [facility], were you homeless or living in a [...] on filedocumented in this encounter Care Teams Financial Institution Treasurer Relationship Specialty Start Date End Date Idania Gaston DO [address] [facility] [address] [place] [address] PCP - General Family Medicine 09/20/23 documented as of this encounter
--- OUTSIDE RECORDS SUMMARY | 2025-04-10 17:49 | XMS_ITS | Encounter Summary ---
Author Organization [facility] Address [address] [place] [address] Care Team Providers Care Temperature Logging Operator Name Role Phone Idania Gaston DO Primary Care Provider [phone]- [phone] Idania Gaston DO Unavailable [phone] Encounter Details Date Type Department Care Team (Late st Contact Info) Description 11/22/2023 Abstract [facility] [address] [facility] [address] [address] [place] [address] Idania Gaston, [address] [place] [address] Social History Tobacco Use Types Packs/Day Years [...] on filedocumented in this encounter Care Teams Temperature Logging Operator Relationship Specialty Start Date End Date Idania Gaston DO [address] [place] [address] PCP - General Family Medicine 09/20/23 Idania Gaston DO [address] [place] [address] PCP - [facility] 09/06/23 09/05/24 documented as of this encounter
--- OUTSIDE RECORDS SUMMARY | 2025-04-10 17:49 | XMS_ITS | Encounter Summary ---
Author Organization [facility] Address [address] [place] [address] Care Team Providers Care Pain Management Nurse Name Role Phone Idania Gaston DO Primary Care Provider [phone]- [phone] Reason for Visit * Reason Comments Med Refill Encounter Details Date Type Department Care Team (Late st Contact Info) Description 11/01/2024 Refill [facility] [address] [place] [address] Idania Gaston DO [address] [place] [address] Acquired hypothyroidism Social History Tobacco Use Types Packs/Day Years [...] this encounter Visit Diagnoses Diagnosis Acquired hypothyroidism Unspecified hypothyroidism documented in this encounter Care Teams Pain Management Nurse Relationship Specialty Start Date End Date Idania Gaston DO [address] [place] [id number] PCP - General Family Medicine 09/20/23 documented as of this encounter
--- OUTSIDE RECORDS SUMMARY | 2025-04-10 17:49 | XMS_ITS | Encounter Summary ---
Author Organization [facility] Address [address] [place] [address] Care Team Providers Care Tug Hand Name Role Phone Idania Gaston DO Primary Care Provider [phone]- [phone] Idania Gaston DO Unavailable [phone] Encounter Details Date Type Department Care Team (Late st Contact Info) Description 01/07/2024 Abstract [facility] [address] [place] [address] Idania Gaston, [address] [place] [address] Social History Tobacco Use Types Packs/Day Years [...] on filedocumented in this encounter Care Teams Tug Hand Relationship Specialty Start Date End Date Idania Gaston DO [address] [place] [address] PCP - General Family Medicine 09/20/23 Idania Gaston DO [address] [place] [address] PCP - [facility] 09/06/23 09/05/24 documented as of this encounter
--- OUTSIDE RECORDS SUMMARY | 2025-04-10 17:49 | XMS_ITS | Encounter Summary ---
Author Organization [facility] Address [address] [place] [address] Care Team Providers Care Supervisor Word Processing Name Role Phone Idania Gaston DO Primary Care Provider [phone]- [phone] Encounter Details Date Type Department Care Team (Late st Contact Info) Description 01/01/2025 Abstract [facility] [address] [facility] [address] [place] [address] Idania Gaston DO [address] [place] [address] Social History Tobacco Use Types Packs/Day Years [...] How often do you attend chur or latter-day services? 1 to 4 times per year 12/05/2024 Do you belong to any clubs o r organizations such as episcopal groups, unions, fraternal or athletic groups, or [...] Recorded Patient Health Questionnaire-2 Score 0 10/02/2024 [facility] - Occupational Stress Questionnaire Answer Date [...] any time in the past 12 m [facility], were you homeless or living in a assisted (including now)? No 12/05/2024 Sex and Gender Information Value Date Recorded Sex Assigned at Not on file Legal Sex Male 7:11 PM EDT Gender Identity Not on file Sexual Orientation Not on file documented as of this encounter Plan of Treatment Not on file documented as of this encounter Visit Diagnoses Not on filedocumented in this encounter Care Teams Supervisor Word Processing Relationship Specialty Start Date End Date Idania Gaston DO [address] [facility] [address] [place] [address] PCP - General Family Medicine 09/20/23 documented as of this encounter
--- OUTSIDE RECORDS SUMMARY | 2025-04-10 17:49 | XMS_ITS | Encounter Summary ---
Author Organization [facility] Address [address] [place] [address] Care Team Providers Care Relay Worker Name Role Phone Idania Gaston DO Primary Care Provider [phone]- [phone] Idania Gaston DO Unavailable [phone] Encounter Details Date Type Department Care Team (Late st Contact Info) Description 11/26/2023 Abstract [facility] [address] [address] [place] [address] Iadnia Gaston, [address] [facility] [address] [place] [address] Social History Tobacco Use Types Packs/Day Years [...] on filedocumented in this encounter Care Teams Relay Worker Relationship Specialty Start Date End Date Idania Gaston DO [address] [place] [address] PCP - General Family Medicine 09/20/23 Idania Gaston DO [address] [place] [address] PCP - [facility] 09/06/23 09/05/24 documented as of this encounter
--- OUTSIDE RECORDS SUMMARY | 2025-04-10 17:49 | XMS_ITS | Encounter Summary ---
Author Organization [facility] Address [address] [place] [address] Care Team Providers Care Kiln Operator Name Role Phone Idania Gaston DO Primary Care Provider [phone]- [phone] Encounter Details Date Type Department Care Team (Late st Contact Info) Description 03/12/2025 Abstract [facility] [address] [facility] [address] [place] [address] Idania Gaston DO [address] [place] [address] Social History Tobacco Use Types Packs/Day Years [...] any clubs o r organizations such as catholic groups, unions, fraternal or athletic groups, [...] Recorded Patient Health Questionnaire-2 Score 0 10/02/2024 [facility] - Occupational Stress Questionnaire Answer Date [...] No 12/05/2024 Housing Stability Vital Sign Answer Micheal e Recorded In the last 12 months, was t here a time when you were not able to pay the mortgage or rent on time? Yes 12/05/2024 Number of Times Moved in the Last Year Not on fi le 12/05/2024 At any time in the past 12 m [facility], were you homeless or living [...] on filedocumented in this encounter Care Teams Kiln Operator Relationship Specialty Start Date End Date Idania Gaston DO [address] [facility] [address] [place] [address] PCP - General Family Medicine 09/20/23 documented as of this encounter
--- OUTSIDE RECORDS SUMMARY | 2025-04-10 17:49 | XMS_ITS | Encounter Summary ---
Author Organization [facility] Address [address] [place] [address] Care Team Providers Care Lockstitch Waistband Setter Name Role Phone Idania Gaston DO Primary Care Provider [phone]- [phone] Encounter Details Date Type Department Care Team (Late st Contact Info) Description 02/13/2025 Abstract [facility] [address] [facility] [address] [place] [address] Idania Gaston DO [address] [place] [address] Social History Tobacco Use Types Packs/Day Years [...] How often do you attend chur or druze services? 1 to 4 times per year 12/05/2024 Do you belong to any clubs o r organizations such as muslim groups, unions, fraternal or athletic groups, or [...] Recorded Patient Health Questionnaire-2 Score 0 10/02/2024 [facility] - Occupational Stress Questionnaire Answer [...] in the past 12 m [facility], were you homeless or living in a senior care (including now)? No 12/05/2024 Sex and Gender Information Value Date Recorded Sex Assigned at Not on file Legal Sex Male 7:11 PM EDT Gender Identity Not on file Sexual Orientation Not on file documented as of this encounter Plan of Treatment Not on file documented as of this encounter Visit Diagnoses Not on filedocumented in this encounter Care Teams Lockstitch Waistband Setter Relationship Specialty Start Date End Date Idania Gaston DO [address] [facility] [address] [place] [address] PCP - General Family Medicine 09/20/23 documented as of this encounter
--- OUTSIDE RECORDS SUMMARY | 2025-04-10 17:49 | XMS_ITS ---
Author Organization [facility] Address [address] [place] [address] Care Team Providers Care Wheat And Oats Flake Miller Name Role Phone Idania Gaston DO Primary Care Provider [phone] Ignacio Clay MD Unavailable Adams Tate TOBACCO SWEEPER Unavailable [phone] Delano Bardales MD Unavailable Sivan Keller MD Unavailable [phone] Desire Bueno TOBACCO SWEEPER Unavailable Unavailabl e Transplant Episode Kidney Candidate [facility] ([place], [place]) - [facility] Evaluation began on 10/12/2019 Marked as Active on 04/07/2022 Kidney CoordinatorMelinda Hidalgo RN Phone: N/A Fax: N/A Email: N/A Scores Score Value Updated Exceptions/Reas ons CPRA Not available EPTS (Calc) 67 04/10/2025 Infection History Noted Survival Infection Treatment Organism Resolved 06/14/2024 COVID-19 03/02/2023 Osteomyelitis of left foot ([facility]) 07/28/2019 Osteomyelitis ([facility]) Care Team Name Role Phone Fax Email Melinda Hidalgo, JACOB Kidney Coordinator N/A N/A N/A Ada Uriostegui MD Referring Physician [phone] N/A Melinda Avendano Txp Seasonal Delivery Driver N/A N/A N/A Delano Bardales MD Surgeon [phone] N/A Gisele Wharton Txp Seasonal Delivery Driver N/A N/A N/A Sandy Morris MD Merchandising Representative [phone] N/A Events Pre-Transplant Referred: 06/29/2019 Evaluation began: 10/12/2019 Committee: 03/22/2023 Dialysis History Dialysis History Start End Type Comments Center 03/06/2023 Hemo [facility] 11/23/2022 03/06/2023 Peritoneal [facility] Dialysis Center Information Center Phone Fax Address [facility] [phone] [address] [place] [address] [facility]. [phone] [address] [facility] [facility] [address]
--- OUTSIDE RECORDS SUMMARY | 2025-04-10 17:49 | XMS_ITS | Encounter Summary ---
Author Organization [facility] Address [address] [place] [address] Care Team Providers Care Wireless Telegrapher Name Role Phone Idania Gaston DO Unavailable [phone] Petznaston, Idania Mcfarlane DO Primary Care Provider [phone] Petznaston, Idania Mcfarlane DO Unavailable [phone] Petznaston, Idania Mcfarlane DO Primary Care Provider Petznaston, Idania Mcfarlane DO Unavailable [phone] Encounter Details Date Type Department Care Team (Late st Contact Info) Description 04/14/2023 Abstract [facility] [address] [facility] [address] [facility] [address] [place] [address] Idania Gaston DO [address] [place] [address] Social History Tobacco Use Types Packs/Day Years [...] on filedocumented in this encounter Care Teams Wireless Telegrapher Relationship Specialty Start Date End Date Idania Gaston DO [address] [place] [address] PCP - [facility] 09/09/22 07/06/23 Idania Gaston, DO [address] [place] [address] PCP - General Family Medicine 03/02/23 09/19/23 Idania Gaston, [address] [place] [address] PCP - [facility] [employer] [employer] 02/04/23 11/13/23 Idania Gaston, DO [address] [place] [address] PCP - [facility] 09/20/23 Idania Gaston, DO [address] [place] [address] PCP - [facility] 09/06/23 09/05/24 documented as of this encounter
--- OUTSIDE RECORDS SUMMARY | 2025-04-10 17:49 | XMS_ITS | Clinical Summary ---
Author Organization [facility] Address [address] [place] [address] Care Team Providers Care Rn Bariatric Name Role Phone Idania Gaston DO Primary Care Provider [phone]- [phone] Allergies Active Allergy Reactions Criticality Noted Date Comments Haloperidol Anxiety Low 09/25/2023 Latex Rash Medium 06/18/2022 Other Reaction(s): Unknown If on for long periods of time [place] Oil GI intolerance Low 06/16/2018 Runny nose, watery eyes Vancomycin Hives 02/28/2023 Wound Dressing Adhesive Rash Low 05/02/2022 Medications anastrozole (Arimidex) 1 MG chemo tablet take 1 tablet by mouth every morning (SWALLOW WHOLE WITH A DRINK OF WATER) 01/26/20 Active calcitriol (Rocaltrol) 0.25 MCG capsule Take 0.25 mcg by mouth in the morning. 02/13/20 23 Active carvedilol (Coreg) 6.25 MG tablet Take 6.25 mg by mouth in the morning and 6.25 mg in the evening. Take with meals. Active Testosterone 1.62 % gel apply 2 PUMPS topically every morning 12/30/19 Active cholecalciferol (D3-5) 5,000 Units tablet Daily. A ctive b complex-folic acid tablet Take 1 tablet by mouth Daily Active Continuous Blood Gluc Sensor (Dexcom G7 Sensor) misc as directed every 10 days for 90 days 11/17/19 Active Continuous Blood Gluc Grinder Operator Surface Tool (Dexcom G7 Grinder Operator Surface Tool) device 1 (one) time each day at the same time. 12/22/19 23 Active ondansetron ODT (Zofran-ODT) 4 MG disintegrating tabletIndications:Type 2 diabetes mellitus with foot ulcer, with long-term current use of insulin (HCC) Take 2 tablets (8 mg) by mouth every 8 (eight) hours if needed for nausea or vomiting 30 tablet 1 11/29/19 24 Active Xphozah 30 MG tablet Take 30 mg by mouth Daily 12/29/19 24 Active glucagon (Gvoke HypoPen) 1 MG/0.2ML injection Inject 1 mg under the skin 1 (one) time if needed for low blood sugar 01/25/20 24 Active traZODone (Desyrel) 50 MG tabletIndications:Prima ry insomnia TAKE 1 TABLET(50 MG) BY MOUTH AT BEDTIME 90 tablet 08/07/20 24 Active aspirin 81 MG chewable tablet Chew 81 mg in the morning. 06/22/20 24 025 Active cyanocobalamin (Vitamin B-12) 1000 MCG tablet Daily 24 Active sevelamer carbonate (Renvela) 800 MG tablet TAKE 2 TABLETS BY MOUTH THREE TIMES DAILY WITH MEALS 07/26/20 24 Active Tirzepatide (Mounjaro) 10 MG/0.5ML solution auto-injectorIndication s: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) Inject 10 mg under the skin 1 (one) time per week 6 mL 3 08/07/20 24 Active insulin glargine (Lantus SoloStar) 100 UNIT/ML penIndications: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) Inject 50 Units under the skin in the morning. 30 mL 3 08/07/20 24 Active midodrine (Proamatine) 10 MG tablet TAKE 1 TABLET BY MOUTH NEEDED DURING DIALYSIS FOR BLOOD PRESSURE SUPPORT 09/13/19 25 Active bumetanide (Bumex) 2 MG tabletIndications:End stage renal disease (HCC) Take 1 tablet (2 mg) by mouth Daily 60 tablet 3 09/19/19 25 Active levothyroxine (Synthroid, Levoxyl) 100 MCG tabletIndications:Acqui red hypothyroidism TAKE 1 TABLET BY MOUTH EVERY MORNING BEFORE A MEAL 90 tablet 11/03/19 25 Active pregabalin (Lyrica) 150 MG capsuleIndications:Neur opathy,Type 2 diabetes mellitus with peripheral neuropathy (HCC) Take 1 capsule (150 mg) by mouth in the morning and 1 capsule (150 mg) before bedtime. 60 capsule 3 11/29/19 25 Active amitriptyline (Elavil) 10 MG tablet Take 20 mg by mouth at bedtime 11/24/19 25 Active atorvastatin (Lipitor) 20 MG tabletIndications:Pure hypercholesterolemia TAKE 1 TABLET(20 MG) BY MOUTH IN THE MORNING 90 tablet 3 12/29/19 25 Active LORazepam (Ativan) 1 MG tabletIndications:Anxie ty Take 1 tablet (1 mg) by mouth every 8 (eight) hours if needed for anxiety 10 tablet 01/04/20 25 Active insulin lispro (HumaLOG KWIKPEN) 100 UNIT/ML injectionIndications:Ty pe 2 diabetes mellitus with Charcot's joint arthropathy (HCC) INJECT 10 UNITS UNDER THE SKIN WITH BREAKFAST, 25 UNITS WITH LUNCH AND DINNER AND 10-15 UNITS WITH SNACKS PLUS CORRECTION. MAX OF 100 UNITS DAILY 30 mL 3 03/01/20 25 Active Active Problems Problem Noted Date Diagnosed Date Venous stasis dermatitis 09/20/2024 Lymphedema 09/20/2024 Chronic kidney disease with end stage renal disease on dialysis due to type 2 diabetes mellitus 10/13/2023 Hx of amputation of lesser toe, left ([facility]) 0 10/02/2023 Assessment & Plan (10/02/2023 9:28 AM EST): [...] Abdominal wall seroma 11/03/20232023 Acute hyperkalemia 10/13/2023 4 Acute kidney injury superimposed on CKD 10/13/2023 02/25/2024 Cellulitis of foot, left 10/13/2023 Cellulitis of leg, right 10/13/2023 Chronic bronchitis 10/13/2023 4 COVID-19 10/13/2023 02/25/2024 Diabetic foot ulcer 10/13/2023 [...] 05/02/2022 02/25/2024 Open wound of left foot 05/02/2022 03/2 01/2024 Overview (10/13/2023): s/p surgery and healing; completed healed. 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 09/28/2017 01/07/2024 Encounters Date Type Department Care Team Description 04/10/2025 Refill [facility] [address] [place] [address] [phone] Elizabeth Garcia MA Neuropathy; Type 2 diabetes mellitus with peripheral neuropathy (HCC) 04/09/2025 Abstract [facility] [address] [place] [address] Idania Gaston, DO 03/27/2025 Abstract [facility] [address] [place] [address] Idania Gaston, DO 03/27/2025 Abstract [facility] [address] [place] [address] Idania Gaston, DO 03/27/2025 Telephone [facility] [address] [place] [address] Magali Nazario MA Referral 03/26/2025 Abstract [facility] [address] [place] [address] Idania Gaston, DO 03/26/2025 Abstract [facility] [address] [place] [address] Idania Gaston, DO 03/12/2025 Abstract [facility] [address] [place] [address] Idania Gaston, DO 03/07/2025 Abstract [facility] [address] [place] [address] Idania Gaston, DO 03/01/2025 Refill [facility] [address] [place] [address] Idania Gaston, DO 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) 02/13/2025 Abstract [facility] [address] [place] [address] Idania Gaston, DO 02/08/2025 Abstract [facility] [address] [place] [address] Idania Gaston, DO 02/06/2025 Abstract [facility] [address] [place] [address] Idania Gaston, DO 02/01/2025 Refill [facility] [address] [place] [address] Idania Gaston, DO Acquired hypothyroidism 01/24/2025 Telephone [facility] [address] [place] [address] Idania Gaston, DO Referral 01/12/2025 Refill [facility] [address] [place] [address] Melinda Dailey LPN 2025 Telephone [facility] [address] [place] [address] Ceci Harris LPN Due for medicare wellness from Last 3 Months Immunizations Immunization Administration [...] often do you attend chur ch or moravian services? 1 to 4 times per year 12/05/2024 Do you belong to any clubs o r organizations such as jew groups, unions, fraternal or athletic groups, or [...] Recorded Patient Health Questionnaire-2 Score 0 10/02/2024 [facility] [place] [facility] - Occupational Stress [...] any time in the past 12 m [facility], were you homeless or living in a skilled nursing (including now)? No 12/05/2024 Sex and Gender [...] 12/17/2022, 06/12/2020, Additional history exists Influenza Vaccine (#1) 2025 , 06/18/2019, 06/29/2014, Additional history exists Colonoscopy 06/20/2034 06/20/2024, 08/07, 09/03/2022, Additional history exists Colorectal Cancer Screening 06/20/2034 Procedures Procedure Name Priority Date/Time Associated Diagnosis Comments POCT GLYCOSYLATED HEMOGLOBIN (HGB A1C) Routine 02/25/2024 1:44 PM EDT 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) DIABETIC RETINOPATHY SCREENING - OU - BOTH EYES Routine 01/07/2024 1:19 PM EDT COLONOSCOPY Routine 09/03/2022 12:00 PM EST MICROALBUMIN / CREATININE URINE RATIO Routine 05/19/2021 from Last 3 Months or Most Recently Relevant to Health Maintenance Results * POCT glycosylated hemoglobin (Hb A1C) docked device (02/25/2024 1:44 PM EDT) Hemoglobin A1C 6.3 Blood Venous blood specimen / Unknown 02/25/2024 1:44 PM EDT Idania Gaston DO POINT OF CARE TEST ENTER/E DIT ORDERABLES Final Result * (ABNORMAL) Diabetic Retinopathy Screening - OU - Both Eyes (01/07/2024 1:19 PM EDT) Anatomical Region Laterality Modality Head Other Idania Gaston DO OPHTH PHOTOGRAPHY Final Re sult * Colonoscopy (09/03/2022 12:00 PM EST) Anatomical Region Laterality Modality Endoscopy 09/03/2022 12:0 0 PM EST Narrative 09/03/2022 12:00 PM EST PERFORMED AT [facility] LOCATION:[id number] [facility] Procedure Note CONVERSION, GENERIC - 01/20/2023 PERFORMED AT [facility] LOCATION:[id number] [facility] Idania Gaston DO ENDOSCOPY PROCEDURE ORDERA BLES [...] MEDICAID [place] [employer] MEDICARE Care Teams Rn Bariatric Relationship Specialty Start Date End Date Idania Gaston DO [address] [place] [address] PCP - General Family Medicine 09/20/23
--- OUTSIDE RECORDS SUMMARY | 2025-04-10 17:49 | XMS_ITS | Encounter Summary ---
Author Organization [facility] Address [address] [place] [address] Care Team Providers Care Crabbing Machine Operator Name Role Phone Idania Gaston DO Primary Care Provider [phone] Encounter Details Date Type Department Care Team (Late st Contact Info) Description 03/26/2025 Abstract [facility] [address] [facility] [address] [place] [address] Idania Gaston DO [address] [place] [address] Social History Tobacco Use Types Packs/Day Years [...] How often do you attend chur or samaritan services? 1 to 4 times per year 12/05/2024 Do you belong to any clubs o r organizations such as buddhist groups, unions, fraternal or athletic groups, or [...] Recorded Patient Health Questionnaire-2 Score 0 10/02/2024 [facility] - Occupational Stress Questionnaire Answer Date [...] in the past 12 m [facility], were you homeless or living in [...] on filedocumented in this encounter Care Teams Crabbing Machine Operator Relationship Specialty Start Date End Date Idania Gaston DO [address] [facility] [address] [place] [address] PCP - General Family Medicine 09/20/23 documented as of this encounter
--- OUTSIDE RECORDS SUMMARY | 2025-04-10 17:49 | XMS_ITS | Encounter Summary ---
Author Organization [facility] Address [address] [place] [address] Care Team Providers Care Seat Builder Name Role Phone Idania Gaston DO Primary Care Provider [phone]- [phone] Idania Gastno DO Unavailable [phone] Encounter Details Date Type Department Care Team (Late st Contact Info) Description 11/22/2023 [facility] [address] [address] [place] [address] Idania Gaston, [address] [place] [address] Social History Tobacco Use Types Packs/Day Years [...] on filedocumented in this encounter Care Teams Seat Builder Relationship Specialty Start Date End Date Idania Gsaton DO [address] [place] [address] PCP - General Family Medicine 09/20/23 Idania Gaston DO [address] [place] [address] PCP - [facility] 09/06/23 09/05/24 documented as of this encounter
--- OUTSIDE RECORDS SUMMARY | 2025-04-10 17:49 | XMS_ITS | Encounter Summary ---
Author Organization [facility] Address [address] [facility] [place] [address] Care Team Providers Care Tool Tender Name Role Phone Idania Gaston DO Unavailable [phone] Petznick, Idania Maeve DO Primary Care Provider Petznick, Idania M DO Unavailable [phone] Petznick, Idania M DO Primary Care Provider + [phone] Petznick, Idania Mcfarlane DO Unavailable [phone] Encounter Details Date Type Department Care Team (Late st Contact Info) Description 06/22/2023 Telephone [facility] [address] [phone] Jaspreet Jones MD [address] [place] [id number] Social History Tobacco Use Types Packs/Day Years [...] on filedocumented in this encounter Care Teams Tool Tender Relationship Specialty Start Date End Date Idania Gaston, DO [address] [place] [address] PCP - [facility] 09/09/22 07/06/23 Idania Gaston, DO [address] [place] [address] PCP - General Family Medicine 03/02/23 09/19/23 Idania Gaston, DO [address] [place] [address] PCP - [facility] [facility] 02/04/23 11/13/23 Idania Gaston, DO [address] [place] [address] PCP - General Family Medicine 09/20/23 Idania Gaston, DO [address] [place] [address] PCP - [facility] 09/06/23 09/05/24 documented as of this encounter
--- OUTSIDE RECORDS SUMMARY | 2025-04-10 17:50 | XMS_ITS | Clinical Summary ---
Author Organization [facility] tem Address [id number] [address] [place] [address] Care Team Providers Care Guest Experience Representative Name Role Phone Idania Gaston DO Primary Care Provider [phone] Allergies Active Allergy Reactions Criticality Noted Date Comments Adhesive Tape-Silicones Rash Medium 06/18/2022 Haloperidol Anxiety Low 09/25/2023 Latex Rash Medium 06/18/2022 If on for long periods of time Other Reaction(s): Unknown If on for long periods of time [place] Abdominal Pain Low 06/16/2018 Runny nose, watery eyes Vancomycin Hives 02/28/2023 Medications gabapentin (NEURONTIN) 100 mg capsule Take 200 mg by mouth 4 (four) times a day. Active lisinopril (PRINIVIL,ZESTR IL) 10 mg tablet Take 1 tablet (10 mg total) by mouth in the morning. Active atorvastatin (LIPITOR) 20 mg tablet Take 1 tablet (20 mg total) by mouth in the morning. Active levothyroxine sodium (TIROSINT) 25 mcg capsule Take 3 capsules (75 mcg total) by mouth in the morning. Active pregabalin (LYRICA) 150 mg capsule Take 1 capsule (150 mg total) by mouth in the morning and 1 capsule (150 mg total) before bedtime. Active insulin lispro protamin-lispro (HumaLOG Mix 50-50 KwikPen) 100 unit/mL (50-50) insulin pen Inject under the skin in the morning and in the evening. Inject before meals. 100u am 90u at dinnertime. Active aspirin 81 mg chewable tablet Chew 1 tablet (81 mg total) and swallow in the morning. 4 06/22/20 25 Active bumetanide (BUMEX) 1 mg tablet Take 2 tablets (2 mg total) by mouth. Active calcitrioL (ROCALTROL) 0.25 MCG capsule Take 1 capsule (0.25 mcg total) by mouth. Active carvediloL (COREG) 6.25 mg tablet Take 1 tablet (6.25 mg total) by mouth. Active calcium acetate,phospha t bind, (PHOSLO) 667 mg tablet Take 1 tablet (667 mg total) by mouth. Active insulin glargine (LANTUS) 100 unit/mL injection Inject 0.6 mL (60 Units total) under the skin. Active midodrine (PROAMATINE) 2.5 mg tablet Take 4 tablets (10 mg total) by mouth. Active sevelamer (RENVELA) 800 mg tablet TAKE 2 TABLETS BY MOUTH THREE TIMES DAILY WITH MEALS 4 Active NON FORMULARY Take 1 mg by mouth in the morning. Med Name: anaotrozole . Active HYDROcodone-bright taminophen (NORCO) 5-325 mg per tabletIndicatio ns:Chronic low back pain without sciatica, unspecified back pain laterality Take 1 tablet by mouth every 6 (six) hours as needed for pain for up to 3 days. Max Daily Amount: 4 tablets 12 tablet 5 04/01/20 Active Problems Problem Noted Date Diagnosed Date Spinal stenosis of lumbar re gion with neurogenic claudication 04/05/2025 Encounters Date Type Department Care Team Description 04/10/2025 3:48 PM EDT - 04/10/2025 4:16 PM EDT Emergency [facility] - Emergency [address] [place] [address] Anxiety (Primary Dx) Discharge Disposition: Home 04/10/2025 Travel 04/06/2025 Telephone [facility] [address] [place] [address] Marielos Abreu, complaint inspector 04/05/2025 10:00 AM EDT Office Visit [facility] [address] [place] [address] Maciej Roldan PA Spinal stenosis of lumbar region with neurogenic claudication (Primary Dx); Diabetic peripheral neuropathy ([facility]) 04/03/2025 Travel 04/03/2025 Orders Only [facility] [address] [place] [address] Maciej Roldan PA 03/28/2025 11:56 PM EDT - 03/29/2025 12:25 AM EDT Emergency [facility] - Emergency [address] [place] [phone] Donnie Fontenot MD Chronic low back pain without sciatica, unspecified back pain laterality (Primary Dx) Discharge Disposition: Home 03/28/2025 Travel from Last 3 Months Family History [...] Mass Index 38.52 04/10/2025 3:50 PM EDT Plan of Treatment Upcoming Encounters Date Type Department Care Team (Latest Contact Info) Description 04/27/2025 1:55 PM EDT Hospital Encounter [facility] - Pain Procedures [address] [place] [address] Tyshawn Jacobson MD [address] [facility] [place] [address] 04/27/2025 1:55 PM EDT - 04/27/2025 2:02 PM EDT Surgery [facility] - Pain Procedures [address] [facility] [place] [address] Tyshawn Jacobson MD [address] [facility] [place] [address] INJECTION BLOCK EPIDURAL CAUDAL STEROID [27520 (CPT )] 05/10/2025 1:00 PM EDT Office Visit [facility] [address] [facility] [place] [address] Maciej Roldan PA [address] [place] [address] 05/17/2025 10:30 AM EDT Office Visit [facility] [address] [place] [phone] Chintan Quinn, [address] [place] [address], [address], [address] [place], [place] [phone] Scheduled Procedures Name Priority Associated Diagnoses Date/Ti me INJECTION BLOCK EPIDURAL CAUDAL STEROID Spinal stenosis of lumbar region with neurogenic claudication 04/27/2025 1:55 PM EDT Health Maintenance Due Date Last Done Comments Diabetic Ophthalmology Exam 1971 Tobacco Counseling 1971 Depression Screening 1983 Adult BMI Follow Up Plan 1989 Diabetic Foot Exam 1989 COVID-19 Vaccine (2023-2 5 season) 2024 08/23/2021, 08/12/2021, 01/23/2021, Additional history exists Influenza Vaccine 05/07/2025 06/20/2024, , 06/22/2022, Additional history exists Adult BMI Screening 04/05/2026 04/10/2025 Tobacco Screening 04/05/2026 04/10/2025 DTaP,Tdap and Td Vaccines (3 - Td or Tdap) 05/01/2031 05/01/2021, 06/06/2010 Zoster (Shingles) Vaccine Completed 01/18/2023, 06/2023 Medical Devices Implanted Type Area Ham Sawyer Device Identifier Shelf Expiration Date Model / Serial / Lot Right Foot Insurance [employer] MEDICARE Care Teams Guest Experience Representative Relationship Specialty Start Date End Date Idania Gaston DO [address] [place] [address] PCP - General 06/15/18
--- OUTSIDE RECORDS SUMMARY | 2025-04-10 17:50 | XMS_ITS | Encounter Summary ---
Author Organization [facility] Address [address] [place] [address] Care Team Providers Care Paint Grinder Stone Mill Name Role Phone Idania Gaston DO Primary Care Provider [phone]- [phone] Reason for Visit * Reason Onset Date Comments Med Refill 04/10/2025 Encounter Details Date Type Department Care Team (Late st Contact Info) Description 04/10/2025 Refill [facility] [address] [address] [place] [address] Elizabeth Garcia MA Neuropathy; Type 2 diabetes [...] How often do you attend chur or yazidism services? 1 to 4 times per year 12/05/2024 Do you belong to any clubs o r organizations such as pentecostal groups, unions, fraternal or athletic groups, or [...] Recorded Patient Health Questionnaire-2 Score 0 10/02/2024 [facility]ational Stress Questionnaire Answer Date [...] time in the past 12 m [facility], were you homeless or living in a fdc (including now)? No 12/05/2024 Sex and Gender Information Value Date Recorded Sex Assigned at Not on file Legal Sex Male 7:11 PM EDT Gender Identity Not on file Sexual Orientation Not on file documented as of this encounter Miscellaneous Notes * Telephone Encounter - Elizabeth Garcia MA - 04/10/2025 2:08 PM EDT Pt called, he has spilled his medication down the sink. He would like to have his script called in sooner. He was advised he may not be able to have it sent in sooner, he would like a call either wayto be advised on the medication. documented in this encounter Plan of Treatment Not on file documented as of this encounter Visit Diagnoses Diagnosis Neuropathy Mononeuritis of unspecified site Type 2 diabetes mellitus with peripheral neuropathy (HCC) documented in this encounter Care Teams Paint Grinder Stone Mill Relationship Specialty Start Date End Date Idania Gaston DO [address] [facility] [address] [place] [address] PCP - General Family Medicine 09/20/23 documented as of this encounter
--- OUTSIDE RECORDS SUMMARY | 2025-04-10 17:50 | XMS_ITS | Encounter Summary ---
Author Organization [facility] tem Address [id number] [address] [place] [address] Care Team Providers Care Operation Agent Name Role Phone Idania Gaston Primary Care Provider [phone]- [phone] Encounter Details Date Type Department Care Team (Latest Contact Info) Description 04/10/2025 Travel Social History Tobacco Use Types Packs/Day [...] Description 04/27/2025 1:55 PM EDT Hospital Encounter [facility] - Pain Procedures [address] [place] [phone] Tyshawn Jacobson MD [address] [place] [address] 04/27/2025 1:55 PM EDT - 04/27/2025 2:02 PM EDT Surgery [facility] - Pain Procedures [address] [place] [address] Tyshawn Jacobson MD [address] [place] [address] INJECTION BLOCK EPIDURAL CAUDAL STEROID [53179 (CPT )] 05/10/2025 1:00 PM EDT Office Visit [facility] [address] [place] [phone] Maciej Roldan PA [address] [facility]nd [place] [address] 05/17/2025 10:30 AM EDT Office Visit [facility] [address] [place] [address] [place] [phone] Chintan Quinn DO [address] [facility] [address] [place], [place] [address] Scheduled Procedures Name Priority Associated Diagnoses Date/Ti me INJECTION BLOCK EPIDURAL CAUDAL STEROID Spinal stenosis of lumbar region with neurogenic claudication 04/27/2025 1:55 PM EDT documented as of this encounter Visit Diagnoses Not on filedocumented in this encounter Care Teams Operation Agent Relationship Specialty Start Date End Date Idania Gaston DO [address] [place] [id number] PCP - General 06/15/18 documented as of this encounter
--- OUTSIDE RECORDS SUMMARY | 2025-04-10 17:50 | XMS_ITS | Clinical Summary ---
Author Organization [facility] Address [address] [place] [address] Care Team Providers Care Web Application Developer Name Role Phone Idania Gaston DO Primary Care Provider [phone] Ignacio Clay MD Unavailable [phone] Adams Tate CASE MANAGEMENT ASSISTANT Unavailable [phone] Delano Bardales MD Unavailable Sivan Keller MD Unavailable [phone] Desire Bueno CASE MANAGEMENT ASSISTANT Unavailable Unavailabl e Allergies Active Allergy Reactions Criticality Noted Date Comments Adhesive Rash Low 05/02/2022 Adhesive Tape-Silicones Rash Medium 06/18/2022 Haloperidol Anxiety Low 09/25/2023 Latex Rash Medium 06/18/2022 If on for long periods of time [place] Oil GI intolerance Low 06/16/2018 Runny nose, watery eyes Vancomycin Hives Medium 02/28/2023 Other reaction(s): Unknown Medications atorvastatin (Lipitor) 20 mg tablet Take 20 [...] mouth in the morning. 02/13/20 23 Active calcium acetate (Phoslo) 667 mg capsule Take 667 mg by mouth in the morning. 02/11/20 23 Active testosterone 1.62 % (20.25 mg/1.25 gram) gel in packetIndications: Hypogonadism in male APPLY 1 PACKET DIRECTED ONCE DAILY 37.5 g 05/15/20 24 Active Additional Information Patient taking differently: 1 Application Topical Daily, Reported on 07/19/2024 insulin glargine (Lantus) 100 unit/mL injection vial Inject 60 Units under the skin in the morning. Active insulin lispro (HUMALOG KWIKPEN INSULIN SUBQ) Inject 10 Units under the skin with breakfast, with lunch, and with evening meal. Active aspirin 81 mg chewable tabletIndications: Cardiovascular stress test abnormal Chew 1 tablet (81 mg) in the morning. 90 tablet 3 06/22/20 24 025 Active tenapanor (Xphozah) 30 mg tablet Take 30 mg by mouth two times daily. Active pregabalin (Lyrica) 150 mg capsule Take 150 mg by mouth two times daily. Active bumetanide (Bumex) 2 mg tablet Take 2 mg by mouth in the morning. 09/19/19 25 Active escitalopram (Lexapro) 10 mg tablet Take 10 mg by mouth in the morning. 09/13/19 25 Active midodrine (Proamatine) 10 mg tablet TAKE 1 TABLET BY MOUTH NEEDED DURING DIALYSIS FOR BLOOD PRESSURE SUPPORT 09/13/19 25 Active Qutenza 8 % patch APPLY THE CONTENTS OF 1 KIT TOPICALLY EVERY 3 MONTHS. TO BE ADMINISTERED BY A HEALTHCARE PROFESSIONAL 07/07/20 24 Active cyanocobalamin (Vitamin B-12) 1,000 mcg tablet in the morning. 10/18/19 24 Active dexAMETHasone (Decadron) 1 mg tablet Take 1 tablet as needed by oral route as directed. Active doxycycline (Vibramycin) 100 mg capsule take 1 capsule by mouth twice daily for 10 days Active DULoxetine (Cymbalta) [address] capsule in the morning. Act essence ergocalciferol (Vitamin D-2) 1.25 MG (37342 Units) capsule in the morning. Acti ve gabapentin (Neurontin) 300 mg capsule Take 300 mg by mouth. 05/17/20 24 Active glucagon 1 mg/0.2 mL auto-injector in the morning. 01/25/20 24 Active ibuprofen 600 mg tablet TAKE 1 TABLET BY MOUTH EVERY 6 HOURS NEEDED FOR PAIN. DO NOT EXCEED 4 DOSES IN A 24 HOUR PERIOD 08/29/20 Active insulin aspart (NovoLOG) 100 unit/mL (3 mL) injection pen 02/28/20 Active lidocaine-prilocai ne (Emla) 2.5-2.5 % cream APPLY TO SITE ONE HOUR BEFORE TREATMENT 3 DAYS PER WEEK 12/11/19 Active linezolid (Zyvox) 600 mg tablet Take 1 tablet by mouth Twice daily at 6am and 6pm. 11/24/19 Active LORazepam (Ativan) 1 mg tablet Take 1 mg by mouth every 8 (eight) hours if needed. 05/19/20 Active NIFEdipine XL (Procardia XL) 90 mg 24 hr tablet Use 1 tablet in the mouth or throat 1 (one) time each day. Active ondansetron ODT (Zofran-ODT) 4 mg disintegrating tablet Take 8 mg by mouth every 8 (eight) hours if needed. 11/29/19 24 Active Ozempic 2 mg/dose (8 mg/3 mL) pen injector Inject 2 mg under the skin every 7 (seven) days. 02/25/20 Active sevelamer carbonate (Renvela) 800 mg tablet TAKE 2 TABLETS BY MOUTH THREE TIMES DAILY WITH MEALS 07/26/20 24 Active Lokelma 10 gram packet MIX AND DRINK DIRECTED WHEN MISSING DIALYSIS TREATMENT 10/30/19 Active Velphoro 500 mg tablet,chewable TAKE 2 TABLETS BY MOUTH THREE TIMES DAILY WITH MEALS AND 1 WITH SNACKS 12/13/19 Active Mounjaro 10 mg/0.5 mL pen injector ADMINISTER 10 MG UNDER THE SKIN 1 TIME EVERY WEEK Active traZODone (Desyrel) 50 mg tablet TAKE 1 TABLET(50 MG) BY MOUTH AT BEDTIME 08/07/20 24 Active amitriptyline (Elavil) 10 mg tabletIndications: Chronic painful diabetic neuropathy (CMS/HCC),Neuropat hic pain Take 1 tablet (10 mg) by mouth at bedtime. 30 tablet 1 11/24/19 Active Additional Information Patient not taking.Reported on 12/21/2024 diazePAM (Valium) 10 mg tabletIndications: Neuropathic pain Take 1 tablet (10 mg) by mouth 1 (one) time for 1 dose. To be taken 30 minutes prior to your scheduled MRI. Please have a road oiling truck driver (do not drive) 1 tablet 12/16/19 25 Active methocarbamol (Robaxin) 500 mg tablet 1-2 tabs po 8hrs prn back spasms 30 tablet 12/28/19 25 Active Active Problems Problem Noted Date [...] Type Department Care Team Description 01/22/2025 Refill [facility] Urology [address] [place] [id number] Adams Ttae, WILIAN Hypogonadism male 01/15/2025 Telephone [facility] [address] [place] [address] [place] Hernández LPN from Last 3 Months Immunizations Immunization Administration [...] use - rare / once per year [facility] Utilities Answer Date Recorded In the past 12 months has th e Chatterous, Digital Reasoning, or water DrinkSendo threatened to shut off services in your [...] were you homeless or living in a custodial (including now)? No 09/12/2024 Hunger Vital Sign Answer Date Recorded Within the past 12 months, y ou worried that your food would run out before you got the money to buy more. Never true 09/12/19 25 Ran Out of Food in the Last Year Not on file 09/12/2024 Sex and Gender Information Value Date Recorded Sex Assigned at Male 11/23/2024 1:08 PM EDT Legal Sex Male 12:08 AM EDT Gender Identity Male 11/23/2024 1:08 PM [...] 12/27/2024 2:01 AM EDT Plan of Treatment Upcoming Encounters Date Type Department Care Team (Late st Contact Info) Description 04/17/2025 7:00 AM EDT Appointment [facility] CT Imaging [address] [place] [address] Health Maintenance Due Date Last Done Comments CT Colonography 1971 FIT-DNA 1971 FIT 1971 FOBT 1971 Medicare Annual Wellness (AWV) 1971 Sigmoidoscopy 1971 Diabetes: Retinopathy Screening 1981 Pneumococcal Vaccine: Pediatrics (0 to 5 Years) and At-Risk Patients (6 to 64 Years) (1 of 2 - PCV) 1990 Adult Tetanus 1993 Diabetes: Urine Protein Screening 05/19/2022 05/19/2021 Zoster Vaccines (2 of 2) 01/08/2023 11/13/2022 COVID-19 Vaccine ( season) 2024 08/12/2021, 08/11/2021, 01/23/2021, Additional history exists Diabetes: Hemoglobin A1C 10/11/2024 024, 04/27/2023, 04/27/2023, Additional history exists Influenza Vaccine (#1) 2025 3, 06/18/2019, 06/17/2019, Additional history exists Depression Screening 12/21/2025 12/21/2024 Colonoscopy 09/03/2032 09/03/2022, 08/07, 06/18/2022 Colorectal Cancer Screening 09/03/2032 Hepatitis B Vaccines Completed 03/19/2025, 08/28/2024, 06/05/2024, Additional history exists HIB Vaccines Aged Out [...] Procedure Name Priority Date/Time Associated Diagnosis Comments HEMOGLOBIN A1C Routine 07/11/2024 11:22 AM EST End stage renal disease ([facility]) Hypertension, essential Pre-transplant evaluation for kidney transplant Type 2 diabetes mellitus with chronic kidney disease on chronic dialysis, unspecified whether intermediate insulin use ([facility]) DIAGNOSTIC COLONOSCOPY Routine 09/03/2022 9:29 AM EST Screen for colon cancer from Last 3 Months or Most Recently Relevant to Health Maintenance Results * (ABNORMAL) Hemoglobin A1c (07/11/2024 11:22 AM EST) Hemoglobin A1C 7.4(H) 4.0 - 6.0 % 07/12/2024 8:04 AM EST [facility] ([facility]) Estimated Average Glucose 166 mg/dL 07/12/2024 8:04 AM EST [facility] ([facility]) Blood Venous blood specimen / Unknown Venipuncture / Unknown 07/11/2024 11:22 AM EST 07/11/2024 11:48 AM EST us Brian Cabrera MD LAB BLOOD ORDERABLES Final Re sult [facility] ([facility]) [address] [place] [address] * Colonoscopy (09/03/2022 9:29 AM EST) Anatomical Region Laterality Modality Endoscopy Narrative 09/03/2022 9:32 AM EST Table formatting from the original result was not included. Impression Overall Impression: 3 polyps ranging from 1.5 cm to 6mm in size Poor prep Recommendation Repeat in 1 year Indication Screen for colon cancer Staff Staff Role Jesse Childs, RN Endo Nurse Tara Jack, RN Endo Nurse Medications No administrations occurring [...] tolerated the procedure well without immediate complication. Boling bowel prep score; right colon 1, transverse [...] [id number] Jonel Moore MD ENDOSCOPY PROCEDURE ORDERABLES Final Result from Last 3 Months or Most Recently Relevant to Health Maintenance Insurance [employer] MEDICARE MEDICAID [place] UNITED [employer]ARE MEDICARE MEDICAID [place] Advance Directives * Full Code (Latest Code Status on File) Date Activated Date Inactivated Comments 08/22/2024 2:50 PM 08/22/2024 8:11 PM Care Teams Web Application Developer Relationship Specialty Start Date End Date Idania Gaston DO [address] [facility] [address] [place] [address] PCP - General 04/29/22 Ignacio Clay MD [address] [place] [address] [place] [address] Consulting Physician Transplant Surgery 05/02/22 Adams Tate, CASE MANAGEMENT ASSISTANT [address] [place] [address] [place] [address] Nurse Practitioner Urology 03/01/23 Delano Bardales MD [address] [place] [address] Consulting Physician Urology 07/06/23 Sivan Keller MD [address] [place] [address] [place] [address] Consulting Physician Hematology and Oncology 08/22/24 Desire Bueno CNP [address] [place] [address] Nurse Practitioner Hematology and Oncology 12/21/24
--- OUTSIDE RECORDS SUMMARY | 2025-04-10 17:50 | XMS_ITS | Encounter Summary ---
Author Organization [facility] Address [address] [place] [address] Care Team Providers Care Motor Man Name Role Phone Idania Gaston DO Primary Care Provider [phone] Encounter Details Date Type Department Care Team (Late st Contact Info) Description 04/09/2025 Abstract [facility] [address] [facility] [address] [place] [address] Idania Gaston DO [address] [place] [address] Social History Tobacco Use Types Packs/Day Years [...] How often do you attend chur or church services? 1 to 4 times per year 12/05/2024 Do you belong to any clubs o r organizations such as sabianist groups, unions, fraternal or athletic groups, or [...] Recorded Patient Health Questionnaire-2 Score 0 10/02/2024 [facility] - Occupational Stress Questionnaire Answer Date [...] any time in the past 12 m [facility], were you homeless or living [...] on filedocumented in this encounter Care Teams Motor Man Relationship Specialty Start Date End Date Idania Gaston DO [address] [facility] [address] [place] [address] PCP - General Family Medicine 09/20/23 documented as of this encounter
--- OUTSIDE RECORDS SUMMARY | 2025-04-10 17:50 | XMS_ITS | Clinical Summary ---
Author Organization [facility] Address [address], [address] [place] [address] Care Team Providers Care Lens Cleaner Name Role Phone Unavailable Primary Care Provider Unavailabl e Allergies Active Allergy Reactions Criticality Noted Date Comments Latex Medium 02/02/2025 Vancomycin Medium 02/02/2025 Medications methocarbamol (ROBAXIN) 500 MG tablet Take 1 tablet by mouth 3 times daily as needed (back spasms) Active dexAMETHasone (DECADRON) 1 MG tablet Take 1 tablet by mouth daily as needed (as needed) Active ergocalciferol (ERGOCALCIFEROL) 1.25 MG (99269 UT) capsule Take 1 capsule by mouth [...] mouth Daily Active pregabalin (LYRICA) 75 MG capsuleIndications :Idiopathic peripheral neuropathy Take 1 capsule by mouth daily for 5 doses. Max Daily Amount: 75 mg 5 capsule Active Active Problems Problem Noted Date Diagnosed Date Idiopathic peripheral neuropathy 02/02/2025 Encounters Date Type Department Care Team Description 02/02/2025 9:08 AM EDT - 02/02/2025 12:17 PM EDT Emergency [facility] Emergency Department [address] [place] [address] Hugo Lyons MD Idiopathic peripheral neuropathy (Primary [...] Wellness Visit (Medicare Advantage) 09/06/2024 Flu vaccine (#1) 04/06/2025 11/05/2022, , 06/17/2019, Additional history exists Shingles vaccine Completed [...] 136 - 145 mmol/L 02/02/2025 10:36 AM [facility] Potassium 6.1(HH) 3.7 - 5.3 mmol/L 02/02/2025 10:36 AM [facility] Comment: Specimen hemolysis has exceeded the interference as defined by Yaima. Value may be falsely increased. Suggest recollection if clinically indicated. Chloride 98 98 - 107 mmol/L 02/02/2025 10:36 AM [facility] CO2 23 20 - 31 mmol/L 02/02/2025 10:36 AM [facility] Anion Gap 16 9 - 16 mmol/L 02/02/2025 10:36 AM [facility] Glucose 296(H) 74 - 99 mg/dL 02/02/2025 10:36 AM [facility] BUN 69(H) 6 - 20 mg/dL 02/02/2025 10:36 AM [facility] Creatinine 7.0(HH) 0.70 - 1.20 mg/dL 02/02/2025 10:36 AM [facility] Est, Glom Filt Rate 9(L) >60 mL/min/1.7 3m2 02/02/2025 10:36 AM [facility] Comment: These results are not [...] 10 9 - 20 02/02/2025 10:36 AM [facility] Calcium 9.3 8.6 - 10.4 mg/dL 02/02/2025 10:36 AM T [facility] 02/02/2025 10:3 6 AM EDT 02/02/2025 10:46 AM EDT us Hugo Lyons MD CHEMISTRY ORDERABLES Final R esult [facility] [address] [phone] * (ABNORMAL) CBC with Auto Differential (02/02/2025 9:47 AM EDT) WBC 10.4 3.5 - 11.3 k/uL 02/02/2025 9:47 AM [facility] RBC 3.32(L) 4.21 - 5.77 m/uL 02/02/2025 9:47 AM [facility] Hemoglobin 10.4(L) 13.0 - 17.0 g/dL 02/02/2025 9:47 AM [facility] Hematocrit 31.8(L) 40.7 - 50.3 % 02/02/2025 9:47 AM [facility] MCV 95.8 82.6 - 102.9 fL 02/02/2025 9:47 AM [facility] MCH 31.3 25.2 - 33.5 pg 02/02/2025 9:47 AM [facility] MCHC 32.7 28.4 - 34.8 g/dL 02/02/2025 9:47 AM [facility] RDW 14.6(H) 11.8 - 14.4 % 02/02/2025 9:47 AM [facility] Platelets 208 138 - 453 k/uL 02/02/2025 9:47 AM [facility] MPV 10.1 8.1 - 13.5 fL 02/02/2025 9:47 AM [facility] NRBC Automated 0.0 0.0 per 100 WBC 02/02/2025 9:47 AM [facility] Neutrophils % 76(H) 36 - 65 % 02/02/2025 9:47 AM [facility] Lymphocytes % 13(L) 24 - 43 % 02/02/2025 9:47 AM [facility] Monocytes % 7 3 - 12 % 02/02/2025 9:47 AM [facility] Eosinophils % 3 1 - 4 % 02/02/2025 9:47 AM [facility] Basophils % 0 0 - 2 % 02/02/2025 9:47 AM [facility] Immature Granulocytes % 1(H) 0 % 02/02/2025 9:47 AM [facility] Neutrophils Absolute 7.75 1.50 - 8.10 k/uL 02/02/2025 9:47 AM [facility] Lymphocytes Absolute 1.35 1.10 - 3.70 k/uL 02/02/2025 9:47 AM [facility] Monocytes Absolute 0.76 0.10 - 1.20 k/uL 02/02/2025 9:47 AM [facility] Eosinophils Absolute 0.35 0.00 - 0.44 k/uL 02/02/2025 9:47 AM [facility] Basophils Absolute 0.04 0.00 - 0.20 k/uL 02/02/2025 9:47 AM [facility] Immature Granulocytes Absolute 0.13 0.00 - 0.30 k/uL 02/02/2025 9:47 AM [facility] Blood BLOOD SPECIMEN / Unknown 02/02/2025 9:47 AM EDT 02/02/2025 9:57 AM EDT us Hugo Lyons MD HEMATOLOGY ORDERABLES Final Result [facility] [address] [phone] * XR FOOT RIGHT (MIN 3 VIEWS) [...] Final Result from Last 3 Months Insurance [facility] DUAL COMPLETE MEDICAID [place]
--- OUTSIDE RECORDS SUMMARY | 2025-04-10 17:50 | XMS_ITS | Encounter Summary ---
Author Organization [facility] tem Address [id number] [address] [place] [address] Care Team Providers Care Armored Car Guard Name Role Phone Idania Gaston DO Primary Care Provider [phone]- [phone] Reason for Visit * Reason Onset Date Comments Medication 04/06/2025 Encounter Details Date Type Department Care Team (Late st Contact Info) Description 04/06/2025 Telephone [facility] [address] [place] [address] Marielos Abreu, department store door greeter Social History Tobacco Use Types Packs/Day Years [...] encounter Miscellaneous Notes * Telephone Encounter - Marielos Abreu RN - 04/06/2025 9:54 AM EDT Patient calls and asks if he is able to get something for his pain until he has his Caudal on 04/27 and/or his Qutenza (not scheduled). Patient adds that he has dialysis 4 hours two days a week where he is not able to get up and move around, he has missed dialysis treatments due to this. He adds that he gets some relief from getting up and stomping his feet, his pain becomes unbearable when he is u nable to do that during dialysis, hence missing some of these dialysis treatments. He is currently taking Lyrica 150 mg BID. Suggested to patient to try OTC pain patches. He notes hehas tried these and tens units. He is not currently taking OTC Ibuprofen due to CKD and gets littleto no relief with OTC Tylenol. documented in this encounter Plan of Treatment Upcoming Encounters Date Type Department Care Team (Latest Contact Info) Description 04/27/2025 1:55 PM EDT Hospital Encounter [facility] [address] [place] [address] Tyshawn Jacobson MD [address] [place], [place] [id number] 04/27/2025 1:55 PM EDT - 04/27/2025 2:02 PM EDT Surgery [facility] [address] [address] Tyshawn Jacobson MD [address] [place], [place] [id number] INJECTION BLOCK EPIDURAL CAUDAL STEROID [42155 (CPT )] 05/10/2025 1:00 PM EDT Office Visit [facility] [address] [place] [address] Maciej Roldan PA [address] [place] [address] 05/17/2025 10:30 AM EDT Office Visit [facility] [address] [place] [address] Chintan Quinn, DO [address] [facility] [place] [address] Scheduled Procedures Name Priority Associated Diagnoses Date/Ti me INJECTION BLOCK EPIDURAL CAUDAL STEROID Spinal stenosis of lumbar region with neurogenic claudication 04/27/2025 1:55 PM EDT documented as of this encounter Visit Diagnoses Not on filedocumented in this encounter Care Teams Armored Car Guard Relationship Specialty Start Date End Date Idania Gaston DO [address] [place] [address] PCP - General 06/15/18 documented as of this encounter
[2025-04-10 19:00] VITALS: BP 178/94
== END 2025-04-10 20:04 | disposition left against medical advice (07) ==
PROVIDERS: Emergency Provider Emergency Medicine; PCP Family Medicine
DX: Z53.21 Procedure and treatment not carried out due to patient leaving prior to being seen by health care provider (principal)
CPT/HCPCS: 99281

== ENCOUNTER 2025-04-20 08:46 | Emergency (ER) | payer MEDICARE, SELFPAY ==
--- OUTSIDE RECORDS SUMMARY | 2023-11-17 06:51 | XMS_ITS ---
Author Organization [facility] in [place] Address [address] [place] [address] Care Team Providers Care Swing Driver Name Role Phone Idania Gaston DO Primary Care Provider Unava Augusta Porter Unavailable [phone] REASON FOR VISIT [facility]16[facility] Encounters Encounter Location Date Provider Diagnosis [facility] Nephrology [place] [address] [place] [phone] 11/17/2023 Augusta Hill Plan Of Treatment No Information Progress Notes * Mina FORTEDOB:[birth year] (53 yo M)Acc No.[id number]:11/17/2023 Patient: Mina Merino :1970 A ge:53 Y S ex:Male Address:[facility] [address] [place], [address] * true * Date: Generated for Printi ng/Faxing/eTransmitting on: 0 04/20/2025 09:03 AM EDT
--- OUTSIDE RECORDS SUMMARY | 2025-04-10 15:48 | XMS_ITS | Encounter Summary ---
Author Organization [facility] tem Address [id number] [address] [place] [address] Care Team Providers Care Desizing Pad Operator Name Role Phone Idania Gaston DO Primary Care Provider +1- [phone] Reason for Visit * Reason Comments Med Refill Pt stated he needs p regabalin refilled and family doctor would not refill it for them and told him not come here Encounter Details Date Type Department Care Team (Late st Contact Info) Description 04/10/2025 3:48 PM EDT - 04/10/2025 4:16 PM EDT Emergency [facility] - Emergency [address] [place] [address] Anxiety (Primary Dx) Discharge Disposition: Home Social [...] MOUTH THREE TIMES DAILY WITH MEALS 07/26/2024 capsaicin-skin cleanser (QUTENZA) 8 % kitIndications:D iabetic peripheral neuropathy (CMS-HCC) Apply 1,120 SQ CM (4 patches total) topically once for 1 dose. 1 kit 04/11/2025 documented as of this encounter ED Notes * LEONID Oquendo - 04/10/2025 3:58 PM EDT Images from the original note were not included. [facility] - EMERGENCY Pt Name: Mina Shen Jann Gardner Birthdate: 1970 Chief Complaint: Chief Complaint Patient presents with ??? Med Refill Pt stated he needs pregabalin refilled and family doctor would not refill it for them and told him not come here History of Present Illness: Mina Forte Jr. Is a male that presents to ED with complaint of medication refill/anxiety. Patient states he believes he is going through withdrawal as he has been out of his Lyrica since Wednesday. Patient states he attempted to call his family doctor to get the refill and they declined. He is also a pain management patient. I explained to patient according to his OARRS report he got a 30 day fill on his Lyrica on 710 which means his script does not due to refill in 5 days. He is stating he does not take anymore than prescribed is unsure what happened to the rest of his medication. I explained we would be unable to refill that given it was 5 days early. Patient is asking something for anxiety. I told him I would be happy to give him an off-label Atarax he is agreeable. Past Medical History: Past Medical History: Diagnosis Date ??? CKD (chronic kidney disease) hd on - 5-9am via left avf ??? Diabetes mellitus (CMS-HCC) ??? Diabetes mellitus type 2, controlled (CMS-HCC) ??? Hyperlipidemia ??? Hypothyroid ??? Obesity Past Surgical History: Past Surgical History: Procedure Laterality Date ??? CARDIAC CATHETERIZATION 12/2024 last one (2 total) ??? FISTULA CREATION Left ??? FOOT SURGERY Right Family History: Family History Problem Relation Age of Onset ??? Heart attack Father Social History: Social History Socioeconomic History ??? Marital status: Tobacco Use ??? Smoking status: Never ??? Smokeless tobacco: Current Types: Chew Vaping Use ??? Vaping status: Never Used Substance and Sexual Activity ??? Alcohol use: No ??? Drug use: No Social Drivers of Health Financial Resource Strain: Medium Risk (12/05/2024) Received from [facility] Healthcare Overall Financial Resource Strain (CARDIA) ??? Difficulty of Paying Living Expenses: Somewhat hard Food Insecurity: No Food Insecurity (04/10/2025) Hunger Screening ??? Food Insecurity - Worry: Never True ??? Food Insecurity - Inability: Never True Transportation Needs: No Transportation Needs (12/05/2024) Received from [facility] PRAPARE - Transportation ??? Lack of Transportation (Medical): No ??? Lack of Transportation (Non-Medical): No Physical Activity: Insufficiently Active (12/05/2024) Received from [facility] Exercise Vital Sign ??? Days of Exercise per Week: 3 days ??? Minutes of Exercise per Session: 30 min Stress: Stress Concern Present (12/05/2024) Received from [facility] [employer] - Occupational Stress Questionnaire ??? Feeling of Stress : To some extent Social Connections: Socially Integrated (12/05/2024) Received from [facility] Social Connection and Isolation Panel [NHANES] ??? Frequency of Communication with Friends and Family: More than three times a week ??? Frequency of Social Gatherings with Friends and Family: Three times a week ??? Attends Islam Services: 1 to 4 times per year ??? Active Member of Clubs or Organizations: Yes ??? Attends Club or Organization Meetings: 1 to 4 times per year ??? Marital Status: Interpersonal Safety: Not At Risk (12/21/2024) Received from [facility] Humiliation, Afraid, Rape, and Kick questionnaire ??? Fear of Current or Ex-Partner: No ??? Emotionally Abused: No ??? Physically Abused: No ??? Sexually Abused: No Housing Instability: High Risk (12/05/2024) Received from [facility] Housing Stability Vital Sign ??? Unable to Pay for Housing in the Last Year: Yes ??? Homeless in the Last Year: No Review of Systems: Review of Systems Constitutional: Negative for chills and fever. HENT: Negative for ear pain. Eyes: Negative for pain. Respiratory: Negative for shortness of breath. Cardiovascular: Negative for chest pain/discomfort. Gastrointestinal: Negative for abdominal pain, diarrhea, nausea and vomiting. Genitourinary: Negative for flank pain. Musculoskeletal: Negative for back pain. Skin: Negative for rash. Neurological: Negative for headaches. Psychiatric/Behavioral: Negative for sleep disturbance and suicidal ideas. The patient is nervous/anxious. Physical Exam: ED Triage Vitals [04/10/25 1550] Temp Heart Rate Resp BP SpO2 36.4 ??C (97.6 ??F) 73 20 (!) 226/90 96 % Temp Source Heart Rate Source Patient Position BP Location FiO2 (%) Oral Pulse Ox Sitting Right arm -- Vitals: 04/10/25 1550 BP: (!) 226/90 Temp: 36.4 ??C (97.6 ??F) TempSrc: Oral Pulse: 73 Resp: 20 SpO2: 96% MAP (mmHg): 131 Height: 188 cm (6' 2 ) Weight: 136.1 kg (300 lb) Physical Exam Vitals reviewed. HENT: Head: Normocephalic and atraumatic. Eyes: Conjunctiva/sclera: Conjunctivae normal. Cardiovascular: Rate and Rhythm: Normal rate. Pulmonary: Effort: Pulmonary effort is normal. Breath sounds: Normal breath sounds. Abdominal: General: There is no distension. Palpations: Abdomen is soft. Musculoskeletal: General: Normal range of motion. Cervical back: Normal range of motion and neck supple. Skin: General: Skin is warm and dry. Neurological: General: No focal deficit present. Mental Status: He is alert and oriented to person, place, and time. GCS: GCS eye subscore is 4. GCS verbal subscore is 5. GCS motor subscore is 6. Psychiatric: Mood and Affect: Mood is anxious. Procedure: Procedures Re-evaluation: Re-Evaluation Medical Decision Making Plan of care - 1 time dose of Atarax, instructed to follow up with pain management/family doctor for the Lyrica prescription Risk Prescription drug management. ED Course: Clinical Impressions as of 04/10/25 1610 Anxiety . ED Disposition None ALEKS Supervision Only Supervising Physician was Dr. Anne Marie Hudson Please note that portions of this note were completed with a voice recognition program. Efforts were made to edit the dictations but occasionally words are mis-transcribed. LEONID Oquendo 04/10/25 1602 LEONID Oquendo 04/10/252004 documented in this encounter Plan of Treatment Upcoming Encounters Date Type Department Care Team (Latest Contact Info) Description 04/27/2025 1:50 PM EDT Hospital Encounter [facility] - Pain Procedures [address] [place] [address] Tyshawn Jacobson MD [address] [place] [address] 04/27/2025 1:50 PM EDT - 04/27/2025 1:57 PM EDT Surgery [facility] - Pain Procedures [address] [place] [address] Tyshawn Jacobson MD [address] [place] [address] INJECTION BLOCK EPIDURAL CAUDAL STEROID [21307 (CPT )] 05/10/2025 1:00 PM EDT Office Visit [facility] - Pain Management Clinic [address] [place] [address] Maciej Roldan PA [address] [facility], 2nd Floor [place], [place] [id number] 05/17/2025 10:30 AM EDT Office Visit [facility] Family Medicine [address] [place] [address] [place] [address] Chintan Quinn DO [address] [facility], [address] [place], [place] [id number] Scheduled Procedures Name Priority Associated Diagnoses Date/Ti me INJECTION BLOCK EPIDURAL CAUDAL STEROID Spinal stenosis of lumbar region with neurogenic claudication 04/27/2025 1:50 PM EDT documented as of this encounter [...] admisistered.) documented in this encounter Care Teams Desizing Pad Operator Relationship Specialty Start Date End Date Idania Gaston DO [address] [place] [address] PCP - General 06/15/18 documented as of this encounter
[2025-04-20 08:53] VITALS: PULSE 75; TEMP 37.1; O2SAT 98; BMI 38.5
--- OUTSIDE RECORDS SUMMARY | 2025-04-20 09:02 | XMS_ITS | Encounter Summary ---
Author Organization [facility] Address [address] [place] [address] Care Team Providers Care Carpenter And Joiner Name Role Phone Idania Gaston DO Primary Care Provider [phone]- [phone] Encounter Details Date Type Department Care Team (Late st Contact Info) Description 03/26/2025 Abstract [facility] [address] [place] [address] Idania Gaston, [address] [place] [address] Social History Tobacco Use Types Packs/Day Years [...] 12/05/2024 How often do you attend [facility] or bahai services? 1 to 4 times per year 12/05/2024 Do you belong to any clubs o r organizations such as jain groups, unions, fraternal or athletic groups, or [...] Recorded Patient Health Questionnaire-2 Score 0 10/02/2024 [facility] - Occupational Stress Questionnaire Answer Date [...] time in the past 12 m [facility], were you homeless or living in a mcc (including now)? No 12/05/2024 Sex and Gender Information Value Date Recorded Sex Assigned at Not on file Legal Sex Male 7:11 PM EDT Gender Identity Not on file Sexual Orientation Not on file documented as of this encounter Plan of Treatment Not on file documented as of this encounter Visit Diagnoses Not on filedocumented in this encounter Care Teams Carpenter And Joiner Relationship Specialty Start Date End Date Idania Gaston DO [address] [place] [address] PCP - General Family Medicine 09/20/23 documented as of this encounter
--- OUTSIDE RECORDS SUMMARY | 2025-04-20 09:02 | XMS_ITS | Patient Health Record ---
Author Organization [facility] [place] Address [address] [place] [address] Care Team Providers Care Deputy Director Of Finance Name Role Phone Herojacy Idania CALABRESE Primary Care Provider Unava ilable Allergies Allergen (clinical drug ingredient) Drug/Non Drug Allergy documented on EMR Reaction Allergy Type Onset Date Status Latex Latex Unknown Allergy Active vancomycin Vancomycin Unknown Drug Allergy Activ e Results Component Value Reference Range Notes BUN Reviewed date:01/01/2025 10:04:21 AM Interpretation: Performing Lab:[facility]), [address] [place], [place] [address]E., [address] [address] PH:[phone] Notes/Report: BLOOD UREA NITROGEN 58 5-23 mg/dL [address]FORME [address] [place] [address] BUN Reviewed date:01/01/2025 10:05:13 AM Interpretation: Performing Lab:[facility] ([facility]), [address] [place] [address] AVE[address] [address] PH:[phone] Notes/Report: BLOOD UREA NITROGEN 112 5-23 mg/dL PERFORME D AT [address] [address] Reason For Referral No Information Medications Medication [...] Problem Status W/U Status Risk Notes Problem 011841507 Type 2 diabetes mellitus with diabetic polyneuropathy (E11.42) Active confirmed Problem 16017264611035444 Type 2 diabete s mellitus with foot ulcer (E11.621) Active confirmed Problem 19284952975577179 Non-pressure chronic ulcer of other part of right foot with fat layer exposed (L97.512) Active confirmed Problem 959101654 Charcot's joint, unspecified site (M14.60) Active confirmed Problem 339260840 Charcot's joint, unspecified ankle and foot (M14.679) Active confirmed Problem 68363623 End stage renal disease (N18.6) Active confirmed Plan Of Treatment No Information Insurance Providers Payer Name Payer Address Payer Phone Subscriber Number Group Number Insured Name Patient Relationship to Insured Coverage Start Date Coverage End Date [facility] [employer]ICARE [address] [place] [address] [id number] Mina Savage Self - patient is the insured 4 MED[place]ID [place] 2ND INS [address] [place], [place] [id number] Mina Forte Self - patient is the insured 8 Medical (General) History Medical History History ICD Code diabetes mellitus Surgical History Surgery Date(Month/Year) 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
--- OUTSIDE RECORDS SUMMARY | 2025-04-20 09:02 | XMS_ITS | Encounter Summary ---
Author Organization [facility] Address [address] [place] [address] Care Team Providers Care Distillery Laborer Name Role Phone Idania Gaston DO Primary Care Provider +- [phone] Idania Gaston DO Unavailable [phone] Encounter Details Date Type Department Care Team (Late st Contact Info) Description 06/23/2024 Abstract [facility] [place] [facility] [address] [facility] [address] [place] [address] Idania Gaston, DO [address] [facility] [address] [place] [address] Social History Tobacco Use Types Packs/Day Years [...] filedocumented in this encounter Care Teams Distillery Laborer Relationship Specialty Start Date End Date Idania Gaston DO [address] [place] [address] PCP - General Family Medicine 09/20/23 Idania Gaston DO [address] [place] [address] PCP - [facility] 09/06/23 09/05/24 documented as of this encounter
--- OUTSIDE RECORDS SUMMARY | 2025-04-20 09:02 | XMS_ITS | Encounter Summary ---
Author Organization [facility] Address [address] [place] [address] Care Team Providers Care Addiction Psychiatrist Name Role Phone Idania Gaston DO Unavailable [phone] Idania Gaston DO Primary Care Provider + [phone] Idania Gaston DO Unavailable [phone] Encounter Details Date Type Department Care Team (Late st Contact Info) Description 10/18/2023 External Result Encounter [facility] External Department Unsolicited Flakito High, DO [address] [facility] [address] [place] [address] Social History Tobacco Use Types Packs/Day Years [...] AM EST) 10/18/2023 7:16 AM EST Narrative [facility] - 10/18/2023 10:49 AM EST [place] [id number] Electrocardiograph Report Signed Patient: Mina Forte MR#: [id number] : 1970 Acct:[id number] Age/Sex: 53 / M ADM Date: 10/18/23 Loc: PS Room: Type: [facility] Attending Dr: Flakito High DO Ordering Provider: [...] No significant change was found Confirmed by Pdero Marroquin ([id number]) on 10/18/2023 10:49:16 AM Referred By: JAMARCUS HIGH Electronically Signed By:Pedro Marroquin Transcribed By: MUS Signed By Pedro Marroquin MD 10/18/23 1049 Procedure Note Ila Marroquin MD - 10/18/2023 [place] [id number] Electrocardiograph Report Signed Patient: Mina Forte BMR#: [id number] : 1970Acct:[id number] Age/Sex: 53 / MADM Date: 10/18/23 Loc: PS Room:Type: [facility] Attending Dr: Flakito High DO Ordering Provider: [...] change was found Confirmed by Pedro Marroquin ([id number]) on 10/18/2023 10:49:16 AM Referred By: JAMARCUS HIGH Electronically Signed By:Dionte Transcribed By: MUS Signed By Pedro Marroquin MD 10/18/23 1047 us Flakito High DO ECG ORDERABLES Final Result Performing Organization Address City/State/[facility] Co de Phone Number [facility] [address] [place] [address], documented in this encounter Visit Diagnoses Not on filedocumented in this encounter Care Teams Addiction Psychiatrist Relationship Specialty Start Date End Date Idania Gaston DO [address] [place] [address] PCP - [facility] [employer] 02/04/23 11/13/23 Idania Gaston DO [address] [place] [address] PCP - General Family Medicine 09/20/23 Idania Gaston DO [address] [place] [address] PCP - [facility] 09/06/23 09/05/24 documented as of this encounter
--- OUTSIDE RECORDS SUMMARY | 2025-04-20 09:02 | XMS_ITS | Encounter Summary ---
Author Organization [facility] Address [address] [place] [address] Care Team Providers Care Primary Grade Teacher Name Role Phone Idania Gaston DO Primary Care Provider +1- [phone] Encounter Details Date Type Department Care Team (Late st Contact Info) Description 03/27/2025 Abstract [facility] [place] [facility] [address] [address] [place] [address] Idania Gaston, [address] [place] [address] Social History Tobacco Use Types Packs/Day Years [...] week 12/05/2024 How often do you attend [facility] or congregational services? 1 to 4 times per year 12/05/2024 Do you belong to any clubs o r organizations such as episcopalian groups, unions, fraternal or athletic groups, or [...] Questionnaire-2 Score 0 10/02/2024 [facility] - Occupational Stress Questionnaire Answer [...] any time in the past 12 m [facility], were you homeless or living in a [...] on filedocumented in this encounter Care Teams Primary Grade Teacher Relationship Specialty Start Date End Date Idania Gaston DO [address] [place] [address] PCP - General Family Medicine 09/20/23 documented as of this encounter
--- OUTSIDE RECORDS SUMMARY | 2025-04-20 09:02 | XMS_ITS | Encounter Summary ---
Author Organization [facility] Address [address] [place] [address] Care Team Providers Care Data Governance Consultant Name Role Phone Idania Gaston DO Primary Care Provider +1- [phone] Encounter Details Date Type Department Care Team (Late st Contact Info) Description 03/12/2025 Abstract [facility] [place] [facility] [address] [facility] [address] [place] [address] Idania Gaston, [address] [place] [address] Social History Tobacco Use Types Packs/Day Years [...] week 12/05/2024 How often do you attend [facility] or voodoo services? 1 to 4 times per year 12/05/2024 Do you belong to any clubs o r organizations such as islam groups, unions, fraternal or athletic groups, or [...] Recorded Patient Health Questionnaire-2 Score 0 10/02/2024 [facility] - Occupational Stress Questionnaire Answer [...] any time in the past 12 m [facility], were you homeless or living in a prison (including now)? No 12/05/2024 Sex and Gender Information Value Date Recorded Sex Assigned at Not on file Legal Sex Male 7:11 PM EDT Gender Identity Not on file Sexual Orientation Not on file documented as of this encounter Plan of Treatment Not on file documented as of this encounter Visit Diagnoses Not on filedocumented in this encounter Care Teams Data Governance Consultant Relationship Specialty Start Date End Date Idania Gaston DO [address] [place] [address] PCP - General Family Medicine 09/20/23 documented as of this encounter
--- OUTSIDE RECORDS SUMMARY | 2025-04-20 09:02 | XMS_ITS | Encounter Summary ---
Author Organization [facility] Address [address] [place] [address] [place] [address] Care Team Providers Care Clinical Support Tech Name Role Phone Idania Gaston DO Primary Care Provider +1- [phone] Encounter Details Date Type Department Care Team (Late st Contact Info) Description 03/26/2025 Abstract [facility] [place] [facility] [address] [place] [address] Idania Gaston, [address] [place] [address] Social History Tobacco Use Types Packs/Day Years [...] week 12/05/2024 How often do you attend [facility] or sikh services? 1 to 4 times per year 12/05/2024 Do you belong to any clubs o r organizations such as voodoo groups, unions, fraternal or athletic groups, or [...] Score 0 10/02/2024 [facility] - Occupational Stress Questionnaire Answer Date Recorded [...] any time in the past 12 m [facility], were you homeless or living in a halfway (including now)? No 12/05/2024 Sex and Gender Information Value Date Recorded Sex Assigned at Not on file Legal Sex Male 7:11 PM EDT Gender Identity Not on file Sexual Orientation Not on file documented as of this encounter Plan of Treatment Not on file documented as of this encounter Visit Diagnoses Not on filedocumented in this encounter Care Teams Clinical Support Tech Relationship Specialty Start Date End Date Idania Gaston DO [address] [place] [address] PCP - General Family Medicine 09/20/23 documented as of this encounter
--- OUTSIDE RECORDS SUMMARY | 2025-04-20 09:02 | XMS_ITS | Encounter Summary ---
Author Organization [facility] Address [address] [place] [address] Care Team Providers Care Meat Loiner Name Role Phone Idania Gaston DO Primary Care Provider +1- [phone] Reason for Visit * Reason Comments Med Refill Encounter Details Date Type Department Care Team (Late st Contact Info) Description 04/13/2025 Refill [facility] [place] [facility] [address] [facility] [address] [place] [address] Idania Gaston, [address] [facility] [address] [place] [address] Neuropathy; Type 2 diabetes mellitus with peripheral [...] week 12/05/2024 How often do you attend [facility] or presybeterian services? 1 to 4 times per year 12/05/2024 Do you belong to any clubs o r organizations such as shinto groups, unions, fraternal or athletic groups, or [...] Recorded Patient Health Questionnaire-2 Score 0 10/02/2024 [facility] - Occupational Stress Questionnaire Answer Date Recorded [...] any time in the past 12 m [facility], were you homeless or living in a detention (including now)? No 12/05/2024 Sex and Gender Information Value Date Recorded Sex Assigned at Not on file Legal Sex Male 7:11 PM EDT Gender Identity Not on file Sexual Orientation Not on file documented as of this encounter Miscellaneous Notes * Telephone Encounter - Gretchen Plummer - 04/13/2025 11:57 AM EDT Scheduled mwv with Dr. Emerson. 04/17 * Telephone Encounter - Melinda Dailey LPN - 04/13/2025 11:42 AM EDT Please schedule annual medicare wellness per Dr Hughes message below * Telephone Encounter - Idania Gaston DO - 04/13/2025 11:31 AM EDT Filled rx. He needs an appt to be seen. Last seen in December. I have to see him regularly to fill controlled substances. * Telephone Encounter - Melinda Dailey LPN - 04/13/2025 10:49 AM EDT Last seen 12/05/2024 documented in this encounter Plan of Treatment Not on file documented as of this encounter Visit Diagnoses Diagnosis Neuropathy Mononeuritis of unspecified site Type 2 diabetes mellitus with peripheral neuropathy (HCC) documented in this encounter Care Teams Meat Loiner Relationship Specialty Start Date End Date Idania Gaston DO [address] [facility] [address] [place] [id number] PCP - General Family Medicine 09/20/23 documented as of this encounter
--- OUTSIDE RECORDS SUMMARY | 2025-04-20 09:02 | XMS_ITS | Encounter Summary ---
Author Organization [facility] Address [address] [place] [address] Care Team Providers Care Care Transitions Nurse Name Role Phone Idania Gaston DO Primary Care Provider +1- [phone] Idania Gaston DO Unavailable [phone] Encounter Details Date Type Department Care Team (Late st Contact Info) Description 01/07/2024 Abstract [facility] [address] [facility] [address] [place] [address] Idania Gaston, DO [address] [facility] [address] [place] [address] Social History Tobacco Use Types Packs/Day Years [...] on filedocumented in this encounter Care Teams Care Transitions Nurse Relationship Specialty Start Date End Date Idania Gaston DO [address] [place] [address] PCP - General Family Medicine 09/20/23 Idania Gaston DO [address] [place] [address] PCP - [facility] 09/06/23 09/05/24 documented as of this encounter
--- OUTSIDE RECORDS SUMMARY | 2025-04-20 09:02 | XMS_ITS | Clinical Summary ---
Author Organization [facility] Address [address] [place] [address] Care Team Providers Care Editorial Director Name Role Phone Vandanaaston Idania M Primary Care Provider +1- [phone] Allergies Active Allergy Reactions Criticality Noted Date Comments Haloperidol Anxiety Low 09/25/2023 Latex Rash Medium 06/18/2022 Other Reaction(s): Unknown If on for long periods of time Barnes Oil GI intolerance Low 06/16/2018 Runny nose, [...] 90 days 023 Active Continuous Blood Gluc Health Promotion Officer (Dexcom G7 Health Promotion Officer) device 1 (one) time each day at [...] sugar 024 Active traZODone (Desyrel) 50 MG tabletIndications:Prim yonatan insomnia TAKE 1 TABLET(50 MG) BY MOUTH AT BEDTIME 90 tablet 024 Active aspirin 81 MG chewable tablet Chew 81 mg in the morning. 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 30 mL 3 024 Active midodrine (Proamatine) 10 MG tablet TAKE 1 TABLET BY MOUTH NEEDED DURING DIALYSIS FOR BLOOD PRESSURE SUPPORT 025 Active bumetanide (Bumex) 2 MG tabletIndications:End stage renal disease (HCC) Take 1 tablet (2 mg) by mouth Daily 60 tablet 3 025 Active levothyroxine (Synthroid, Levoxyl) 100 MCG tabletIndications:Acqu ired hypothyroidism TAKE 1 TABLET BY MOUTH EVERY MORNING BEFORE A MEAL 90 tablet 025 Active amitriptyline (Elavil) 10 MG tablet Take 20 mg by mouth at bedtime 025 Active atorvastatin (Lipitor) 20 MG tabletIndications:Pure hypercholesterolemia TAKE 1 TABLET(20 MG) BY MOUTH IN THE MORNING 90 tablet 3 025 Active LORazepam (Ativan) 1 MG tabletIndications:Anxi ety Take 1 tablet (1 mg) by mouth every 8 (eight) hours if needed for anxiety 10 tablet 025 Active insulin lispro (HumaLOG KWIKPEN) 100 UNIT/ML injectionIndications:T ype 2 diabetes mellitus with Charcot's joint arthropathy (HCC) INJECT 10 UNITS UNDER THE SKIN WITH BREAKFAST, 25 UNITS WITH LUNCH AND DINNER AND 10-15 UNITS WITH SNACKS PLUS CORRECTION. MAX OF 100 UNITS DAILY 30 mL 3 025 Active pregabalin (Lyrica) 150 MG capsuleIndications:Carly ropathy,Type 2 diabetes mellitus with peripheral neuropathy (HCC) TAKE 1 CAPSULE BY MOUTH EVERY MORNING AND EVERY NIGHT AT BEDTIME 60 capsule 025 Active pregabalin (Lyrica) 150 MG capsuleIndications:Carly ropathy,Type 2 diabetes mellitus with peripheral neuropathy (HCC) Take 1 capsule (150 mg) by mouth in the morning and 1 capsule (150 mg) before bedtime. 60 capsule 3 025 2024 Discontinued Active Problems Problem Noted Date Diagnosed Date Venous stasis dermatitis 09/20/2024 Lymphedema 09/20/2024 Chronic kidney disease with end stage renal disease on dialysis due to type 2 diabetes mellitus 10/13/2023 Hx of amputation of lesser toe, left (HHS-HCC) 0 10/02/2023 Assessment & Plan (10/02/2023 9:28 [...] Vomiting 10/13/2023 11/29/2023 PD catheter dysfunction 10/13/2023 12/10/2023 Absolute anemia 03/02/2023 03/02/2023 Adrenal nodule 03/02/2023 [...] Encounters Date Type Department Care Team Description [facility] [address] [place] [address] Idania Gaston, DO Neuropathy; Type 2 diabetes mellitus with peripheral neuropathy (HCC) 04/10/2025 Refill [facility] [address] [place] [address] Elizabeth Garcia MA Neuropathy; Type 2 diabetes mellitus with peripheral neuropathy (HCC) 04/09/2025 Abstract [facility] [address] [place] [address] Idania Gaston, DO 03/27/2025 Abstract [facility] [address] [place] [address] Idania Gaston, DO 03/27/2025 Abstract [facility] [address] [place] [address] Idania Gaston, DO 03/27/2025 [facility]phone [facility] [address] [place] [address] Magali Nazario MA Referral 03/26/2025 Abstract [facility] [address] [place] [address] Idania Gaston, DO 03/26/2025 Abstract [facility] [address] [place] [address] Idania Gaston, DO 03/12/2025 Abstract [facility] [address] [place] [address] Idania Gaston, DO 03/07/2025 Abstract [facility] [address] [place] [address] Idania Gaston, DO 03/01/2025 Refill [facility] [address] [place] [address] Idania Gaston, DO 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) 02/13/2025 Abstract [facility] [address] [place] [address] Idania Gaston, DO 02/08/2025 Abstract [facility] [address] [place] [address] Idania Gaston, DO 02/06/2025 Abstract [facility] [address] [place] [address] Idania Gaston, DO 02/01/2025 Refill [facility] [address] [place] [address] Idania Gaston, DO Acquired hypothyroidism 01/24/2025 Telephone [facility] [address] [place] [address] Idania Gaston, DO Referral from Last 3 Months Immunizations Immunization Administration [...] often do you attend chur ch or jehovah's witness services? 1 to 4 times per year [...] Recorded Patient Health Questionnaire-2 Score 0 10/02/2024 [facility] [place] of Occupat ional Health - Occupational Stress [...] living in a custodial (including now)? No 12/05/2024 Sex and Gender [...] / Unknown 02/25/2024 1:44 PM EDT Idania Mcfarlane Marilin [facility] POINT OF CARE TEST ENTER/E DIT ORDERABLES Final Result * (ABNORMAL) Diabetic Retinopathy Screening - OU - Both Eyes (01/07/2024 1:19 PM EDT) Anatomical Region Laterality Modality Head Other Idania Mcfarlane Marilin [facility] OPHTH PHOTOGRAPHY Final Re sult * Colonoscopy (09/03/2022 12:00 PM EST) Anatomical Region Laterality Modality Endoscopy 09/03/2022 12:0 0 PM EST Narrative 09/03/2022 12:00 PM EST PERFORMED AT [facility] LOCATION:[id number] [facility] Procedure Note CONVERSION, GENERIC - 01/20/2023 PERFORMED AT [facility] LOCATION:[id number] [facility] Idania Mcfarlane Marilin [facility] ENDOSCOPY PROCEDURE ORDERA BLES Final Result * Microalbumin / creatinine urine ratio (05/19/2021) UCREA 131 39 - 259 [facility] MALB 271.0 [facility] Comment:mALB reference range not established. MICROALB/CREAT RATIO 2,068.7 [facility] 05/19/2021 Idania M Marilin [facility] LAB URINE ORDERABLES Final Result [facility] from Last 3 Months or Most Recently Relevant to Health Maintenance Insurance [employer] MEDICARE Care Teams Editorial Director Relationship Specialty Start Date End Date Idania Gaston DO [address] [facility] [address] [place] [address] PCP - General Family Medicine 09/20/23
--- OUTSIDE RECORDS SUMMARY | 2025-04-20 09:02 | XMS_ITS | Encounter Summary ---
Author Organization [facility] Address [address] [place] [address] Care Team Providers Care Optical Effects Layout Person Name Role Phone Idania Gaston DO Primary Care Provider +- [phone] Idania Gaston DO Unavailable [phone] Encounter Details Date Type Department Care Team (Late st Contact Info) Description 11/22/2023 Abstract [facility] [place] [facility] [address] [facility] [address] [place] [address] Idania Gaston, DO [address] [facility] [address] [place] [address] Social History Tobacco Use Types Packs/Day Years [...] on filedocumented in this encounter Care Teams Optical Effects Layout Person Relationship Specialty Start Date End Date Idania Gaston DO [address] [place] [address] PCP - General Family Medicine 09/20/23 Idania Gaston DO [address] [place] [address] PCP - [facility] 09/06/23 09/05/24 documented as of this encounter
--- OUTSIDE RECORDS SUMMARY | 2025-04-20 09:02 | XMS_ITS | Encounter Summary ---
Author Organization [facility] Address [address] [place] [address] Care Team Providers Care Maintenance Supervisor Mechanical Name Role Phone Idania Gaston DO Primary Care Provider [phone] Idaina Gaston DO Unavailable [phone] Encounter Details Date Type Department Care Team (Late st Contact Info) Description 01/07/2024 Abstract [facility] [address] [facility] [address] [place] [address] Idania Gaston, DO [address] [facility] [address] [place] [address] Social History Tobacco Use Types Packs/Day Years [...] on filedocumented in this encounter Care Teams Maintenance Supervisor Mechanical Relationship Specialty Start Date End Date Idania Gaston DO [address] [place] [address] PCP - General Family Medicine 09/20/23 Idania Gaston DO [address] [place] [address] PCP - [facility] 09/06/23 09/05/24 documented as of this encounter
--- OUTSIDE RECORDS SUMMARY | 2025-04-20 09:02 | XMS_ITS | Encounter Summary ---
Author Organization [facility] Address [address] [place] [address] Care Team Providers Care Quality Assurance Monitor Final Name Role Phone Idania Gaston DO Primary Care Provider [phone] Encounter Details Date Type Department Care Team (Late st Contact Info) Description 01/01/2025 [facility] [address] [place] [address] Idania Gaston, [address] [place] [address] Social History Tobacco Use Types Packs/Day Years [...] week 12/05/2024 How often do you attend [facility] or jehovah's witness services? 1 to 4 times per year 12/05/2024 Do you belong to any clubs o r organizations such as sikh groups, unions, fraternal or athletic groups, or [...] 10/02/2024 [facility] - Occupational Stress Questionnaire Answer Date [...] any time in the past 12 m [facility], were you homeless or [...] on filedocumented in this encounter Care Teams Quality Assurance Monitor Final Relationship Specialty Start Date End Date Idania Gaston DO [address] [place] [address] PCP - General Family Medicine 09/20/23 documented as of this encounter
--- OUTSIDE RECORDS SUMMARY | 2025-04-20 09:02 | XMS_ITS | Encounter Summary ---
Author Organization [facility] Address [address] [place] [address] Care Team Providers Care Dispatcher Chief Oil Name Role Phone Idania Gaston DO Unavailable [phone] Petjacy, Idania Mcfarlane DO Primary Care Provider +[phone]- [phone] PetIdania louie DO Unavailable [phone] Petznaston, Idania Mcfarlane DO Primary Care Provider +1- [phone] Petjacy, Idania Mcfarlane DO Unavailable [phone] Encounter Details Date Type Department Care Team (Late st Contact Info) Description 03/03/2023 Abstract [facility] [address] [place] [address] Idania Gaston DO [address] [place] [address] Social History Tobacco Use Types Packs/Day Years [...] on filedocumented in this encounter Care Teams Dispatcher Chief Oil Relationship Specialty Start Date End Date Idania Gaston DO [address] [place] [address] PCP - [facility] 09/09/22 07/06/23 Idania Gaston, DO [address] [place] [address] PCP - General Family Medicine 03/02/23 09/19/23 Idania Gaston, DO [address] [place] [address] PCP - Medical [place] [employer] 02/04/23 11/13/23 Idania Gaston, DO [address] [place] [address] PCP - General [facility] 09/20/23 Idania Gaston, DO [address] [place] [address] PCP - [facility] 09/06/23 09/05/24 documented as of this encounter
--- OUTSIDE RECORDS SUMMARY | 2025-04-20 09:02 | XMS_ITS | Encounter Summary ---
Author Organization [facility] Address [address] [facility] [place] [address] Care Team Providers Care Equipment Installer Name Role Phone Idania Gaston DO Unavailable [phone] Idania Gaston DO Primary Care Provider + [phone] Idania Gaston DO Unavailable [phone] Encounter Details Date Type Department Care Team (Late st Contact Info) Description 10/06/2023 Abstract [facility] [place] [facility] [address] [place] [address] Idania Gaston DO [address] [place] [address] Social History Tobacco Use Types Packs/Day Years [...] filedocumented in this encounter Care Teams Equipment Installer Relationship Specialty Start Date End Date Idania Gaston DO [address] [place] [address] PCP - Medical [employer] 02/04/23 11/13/23 Idania Gaston DO [address] [place] [address] PCP - General Family Medicine 09/20/23 Idania Gaston DO [address] [place] [address] PCP - [facility] 09/06/23 09/05/24 documented as of this encounter
--- OUTSIDE RECORDS SUMMARY | 2025-04-20 09:02 | XMS_ITS | Encounter Summary ---
Author Organization [facility] Address [address] [place] [address] Care Team Providers Care Drink Waiter Name Role Phone Idania Gaston DO Primary Care Provider +[phone]- [phone] Reason for Visit * Reason Comments Med Refill Encounter Details Date Type Department Care Team (Late st Contact Info) Description 11/01/2024 Refill [facility] [address] [place] [address] Idania Gaston DO [address] [place] [address] Acquired hypothyroidism Social History Tobacco Use Types [...] hypothyroidism documented in this encounter Care Teams Drink Waiter Relationship Specialty Start Date End Date Idania Gaston DO [address] [address] PCP - General Family Medicine 09/20/23 documented as of this encounter
--- OUTSIDE RECORDS SUMMARY | 2025-04-20 09:02 | XMS_ITS | Encounter Summary ---
Author Organization [facility] Address [address] [facility] [address] [place] [address] Care Team Providers Care Junior Qa Analyst Name Role Phone Idania Gaston DO Primary Care Provider +1- [phone] Encounter Details Date Type Department Care Team (Late st Contact Info) Description 02/06/2025 Abstract [facility] [address] [place] [address] Idania Gaston, [address] [facility] [address] [facility] [address] [place] [address] Social History Tobacco Use Types Packs/Day Years [...] week 12/05/2024 How often do you attend [facility] or alevism services? 1 to 4 times per year 12/05/2024 Do you belong to any clubs o r organizations such as christianity groups, unions, fraternal or athletic groups, or [...] Recorded Patient Health Questionnaire-2 Score 0 10/02/20[address] [facility] - Occupational Stress Questionnaire Answer Date [...] living in a snf (including now)? No 12/05/2024 Sex and Gender Information Value Date Recorded Sex Assigned at Not on file Legal Sex Male 7:11 PM EDT Gender Identity Not on file Sexual Orientation Not on file documented as of this encounter Plan of Treatment Not on file documented as of this encounter Visit Diagnoses Not on filedocumented in this encounter Care Teams Junior Qa Analyst Relationship Specialty Start Date End Date Idania Gaston DO [address] [place] [address] PCP - General Family Medicine 09/20/23 documented as of this encounter
--- OUTSIDE RECORDS SUMMARY | 2025-04-20 09:02 | XMS_ITS | Clinical Summary ---
Author Organization [facility] Address [address] [facility] [place] [address] Phone Care Team Providers Care Folder Machine Operator Name Role Phone Unavailable Primary Care Provider [...]
--- OUTSIDE RECORDS SUMMARY | 2025-04-20 09:02 | XMS_ITS | Clinical Summary ---
Author Organization [facility] Address [address] [place] [address] Care Team Providers Care Weather Analyst Name Role Phone Idania Gaston DO Primary Care Provider +[phone]- [phone] Social History Tobacco Use Types Packs/Day Years [...] age to complete this topic Care Teams Weather Analyst Relationship Specialty Start Date End Date Idania Gaston DO [address] [place] [address] PCP - General Family Medicine 06/04/22
--- OUTSIDE RECORDS SUMMARY | 2025-04-20 09:02 | XMS_ITS | Encounter Summary ---
Author Organization [facility] Address [address] [place] [address] Care Team Providers Care Grid Inspector Name Role Phone Idania Gaston DO Primary Care Provider +1- [phone] Encounter Details Date Type Department Care Team (Late st Contact Info) Description 09/19/2024 Abstract [facility] [address] [place] [address] Idania Gaston, [address] [place] [address] Social History Tobacco Use Types Packs/Day Years [...] on filedocumented in this encounter Care Teams Grid Inspector Relationship Specialty Start Date End Date Idania Gaston DO [address] [facility] [address] [place] [id number] PCP - General Family Medicine 09/20/23 documented as of this encounter
--- OUTSIDE RECORDS SUMMARY | 2025-04-20 09:02 | XMS_ITS | Encounter Summary ---
Author Organization [facility] Address [address] [place] [address] Care Team Providers Care Supervisor Prep Name Role Phone Idania Gaston DO Primary Care Provider +1- [phone] Encounter Details Date Type Department Care Team (Late st Contact Info) Description 01/03/2025 Abstract [facility] [place] [facility] [address] [address] [place] [address] Idania Gaston, [address] [place] [address] Social History Tobacco Use Types Packs/Day Years [...] How often do you attend [facility] or sikhism services? 1 to 4 times per year 12/05/2024 Do you belong to any clubs o r organizations such as lutheran groups, unions, fraternal or athletic groups, or [...] Patient Health Questionnaire-2 Score 0 10/02/2024 [facility] - Occupational Stress Questionnaire Answer [...] any time in the past 12 m [facility], were you homeless or [...] filedocumented in this encounter Care Teams Supervisor Prep Relationship Specialty Start Date End Date Idania Gaston DO [address] [place] [address] PCP - General Family Medicine 09/20/23 documented as of this encounter
--- OUTSIDE RECORDS SUMMARY | 2025-04-20 09:02 | XMS_ITS ---
Author Organization [facility] Address [address] [facility] [place] [address] Care Team Providers Care Medical Records Custodian Name Role Phone Idania Gaston DO Primary Care Provider [phone] Ignacio Clay MD Unavailable Adams Tate STEAM DISTRIBUTION SUPERVISOR Unavailable [phone] Delano Bardales MD Unavailable Sivan Keller MD Unavailable [phone] Desire Bueno STEAM DISTRIBUTION SUPERVISOR Unavailable Unavailabl e Transplant Episode Kidney Candidate [facility], [place]) - [facility] Evaluation began on 10/12/2019 Marked as Active on 04/07/2022 Kidney CoordinatorMelinda Hidalgo RN Phone: N/A Fax: N/A Email: N/A Scores Score Value Updated Exceptions/Reas ons CPRA Not available EPTS (Calc) 67 04/20/2025 Infection History Noted Survival Infection Treatment Organism Resolved 06/14/2024 COVID-19 03/02/2023 Osteomyelitis of left foot ([facility]) 07/28/2019 Osteomyelitis ([facility]) Care Team Name Role Phone Fax Email Melinda Hidalgo, JACOB Kidney Coordinator N/A N/A N/A Ada Uriostegui MD Referring Physician [phone] N/A Melinda Avendano Txp Charge Loader N/A N/A N/A Delano Bardales MD Surgeon [phone] N/A Gisele Wharton Txp Charge Loader N/A N/A N/A Sandy Morris MD Manager Zone [phone] N/A Events Pre-Transplant Referred: 06/29/2019 Evaluation began: 10/12/2019 Committee: 03/22/2023 Dialysis History Dialysis History Start End Type Comments Center 03/06/2023 Hemo [facility] 11/23/2022 03/06/2023 Peritoneal [facility] [employer] Dialysis Center Information Center Phone Fax Address [facility] [phone] [address] [place] [address] [facility] [employer]. [phone] [address] [facility], [address] [facility] [address]
--- OUTSIDE RECORDS SUMMARY | 2025-04-20 09:02 | XMS_ITS | Encounter Summary ---
Author Organization [facility] Address [address] [place] [address] Care Team Providers Care Chief Deputy Court Clerk Name Role Phone Idania Gaston DO Primary Care Provider +- [phone] Idania Gaston DO Unavailable [phone] Encounter Details Date Type Department Care Team (Late st Contact Info) Description 12/27/2023 Abstract [facility] [address] [facility] [address] [place] [address] Idania Gaston, DO [address] [facility] [address] [place] [address] Social History Tobacco Use Types Packs/Day Years [...] on filedocumented in this encounter Care Teams Chief Deputy Court Clerk Relationship Specialty Start Date End Date Idania Gaston DO [address] [place] [address] PCP - General Family Medicine 09/20/23 Idania Gaston DO [address] [place] [address] PCP - [facility] 09/06/23 09/05/24 documented as of this encounter
--- OUTSIDE RECORDS SUMMARY | 2025-04-20 09:02 | XMS_ITS | Encounter Summary ---
Author Organization [facility] Address [address] [place] [address] Care Team Providers Care Health Technician Hearing Name Role Phone Idania Gaston DO Primary Care Provider [phone]- [phone] Encounter Details Date Type Department Care Team (Late st Contact Info) Description 02/08/2025 Abstract [facility] [address] [place] [address] Idania Gaston, [address] [place] [address] Social History Tobacco Use Types Packs/Day Years [...] often do you attend [facility] or zoroastrian services? 1 to 4 times per year 12/05/2024 Do you belong to any clubs o r organizations such as pentecostalism groups, unions, fraternal or athletic groups, or [...] Recorded Patient Health Questionnaire-2 Score 0 10/02/2024 [facility] - Occupational Stress Questionnaire Answer Date Recorded [...] any time in the past 12 m [facility], were you homeless or [...] on filedocumented in this encounter Care Teams Health Technician Hearing Relationship Specialty Start Date End Date Idania Gaston DO [address] [place] [address] PCP - General Family Medicine 09/20/23 documented as of this encounter
--- OUTSIDE RECORDS SUMMARY | 2025-04-20 09:02 | XMS_ITS | Encounter Summary ---
Author Organization [facility] Address [address] [place] [address] Care Team Providers Care Water Reuse Program Manager Name Role Phone Idania Gaston DO Unavailable [phone] Petjacy, Idania Mcfarlane DO Primary Care Provider +[phone]- [phone] PetIdania louie DO Unavailable [phone] Petznaston, Idania Mcfarlane DO Primary Care Provider +[phone]- [phone] Petjacy, Idania Mcfarlane DO Unavailable Encounter Details Date Type Department Care Team (Late st Contact Info) Description 04/14/2023 Abstract [facility] [address] [place] [address] Idania Gaston DO [address] [place] [address] Social History Tobacco Use Types Packs/Day Years [...] on filedocumented in this encounter Care Teams Water Reuse Program Manager Relationship Specialty Start Date End Date Idania Gaston DO [address] [place] [address] PCP - [facility] 09/09/22 07/06/23 Idania Gaston, DO [address] [place] [address] PCP - General Family Medicine 03/02/23 09/19/23 Idania Gaston, DO [address] [place] [address] PCP - Medical [employer] 02/04/23 11/13/23 Idania Gaston, DO [address] [place] [address] PCP - General [facility] Medicine 09/20/23 Idania Gaston, DO [address] [place] [address] PCP - [facility] 09/06/23 09/05/24 documented as of this encounter
--- OUTSIDE RECORDS SUMMARY | 2025-04-20 09:02 | XMS_ITS | Clinical Summary ---
Author Organization [facility] Address [address] [place], [place] [address] Care Team Providers Care Pickling Drum Operator Name Role Phone Idania Gaston Primary Care [...] 2) 2021 Influenza Vaccine (#1) 2025 Insurance [facility] PPO Care Teams Pickling Drum Operator Relationship Specialty Start Date End Date Marilin Idaniakavita Rodriguez PCP - General Unspecified 07/08/12
--- OUTSIDE RECORDS SUMMARY | 2025-04-20 09:02 | XMS_ITS | Encounter Summary ---
Author Organization [facility] Address [address] [place] [address] Care Team Providers Care Drone Pilot Name Role Phone Idania Gaston DO Primary Care Provider +- [phone] Idania Gaston DO Unavailable [phone] Encounter Details Date Type Department Care Team (Late st Contact Info) Description 11/22/2023 Abstract [facility] [address] [facility] [address] [place] [address] Idania Gaston, DO [address] [facility] [address] [place] [address] Social History Tobacco Use Types Packs/Day Years [...] on filedocumented in this encounter Care Teams Drone Pilot Relationship Specialty Start Date End Date Idania Gaston DO [address] [place] [address] PCP - General Family Medicine 09/20/23 Idania Gaston DO [address] [place] [address] PCP - [facility] 09/06/23 09/05/24 documented as of this encounter
--- OUTSIDE RECORDS SUMMARY | 2025-04-20 09:02 | XMS_ITS | Encounter Summary ---
Author Organization [facility] Address [address] [place] [address] Care Team Providers Care Cell Inspector Name Role Phone Idania Gaston DO Primary Care Provider +- [phone] Idania Gaston DO Unavailable [phone] Encounter Details Date Type Department Care Team (Late st Contact Info) Description 11/26/2023 Abstract [facility] [address] [facility] [address] [place] [address] Idania Gaston, DO [address] [facility] [address] [place] [address] Social History Tobacco Use Types Packs/Day Years [...] on filedocumented in this encounter Care Teams Cell Inspector Relationship Specialty Start Date End Date Idania Gaston DO [address] [place] [address] PCP - General Family Medicine 09/20/23 Idania aGston DO [address] [place] [address] PCP - [facility] 09/06/23 09/05/24 documented as of this encounter
--- OUTSIDE RECORDS SUMMARY | 2025-04-20 09:02 | XMS_ITS | Encounter Summary ---
Author Organization [facility] Address [address] [place] [address] Care Team Providers Care Customer Sales Consultant Name Role Phone Marilin Idania Mcfarlane DO Primary Care Provider +1- [phone] Idania Gaston DO Unavailable [phone] Encounter Details Date Type Department Care Team (Late st Contact Info) Description 11/23/2023 External Result Encounter [facility] External Department Unsolicited Diamante Mondragon, PEEM [address] [place] [address] Social History Tobacco Use Types Packs/Day Years [...] Ramirez Guadarrama M.D.11/23/2023 3:35 PM Dictation Location: [place] [address] Transcribed By: [facility] 11/23/23 1535 Dictated By: Ramirez Guadarrama DO 11/23/23 1529 Signed By: <Electronically signed by Ramirez Guadarrama DO in OV> 11/23/23 1535 Narrative 11/23/2023 3:38 PM EDT [place] [address] MRI Report Signed Patient: Mina Forte MR#: [id number] : 1970 Acct:[id number] Age/Sex: 53 / M ADM Date: 11/20/23 Loc: Room: [address] [place] [address] Type: ADM IN Attending Dr: Amy Escudero [...] Procedure Note Radiology, Radiologist, MD - 11/23/2023 [facility] Main [place] [address] [place], [place] [id number] MRI Report Signed Patient: Mina Forte BMR#: [id number] : 1970Acct:[id number] Age/Sex: 53 / MADM Date: 11/20/23 Loc: Room: [id number]: ADM IN Attending Dr: Amy Escudero DO [...] Ramirez Guadarrama M.D.11/23/2023 3:35 PM Dictation Location: [place] [address] Transcribed By: [facility] 11/23/23 1539 Dictated By: Ramirez Guadarrama DO 11/23/23 1529 Signed By: <Electronically signed by Ramirez Guadarrama DO in OV> 11/23/23 1535 us Diamante Mondragon DPM IMG MRI PROCEDURES Final R esult documented in this encounter Visit Diagnoses Not on filedocumented in this encounter Care Teams Customer Sales Consultant Relationship Specialty Start Date End Date Idania Gaston DO [address] [facility] [address] [place] [address] PCP - General Family Medicine 09/20/23 Idania Gaston DO [address] [facility] [address] [place] [address] PCP - [facility] 09/06/23 09/05/24 documented as of this encounter
--- OUTSIDE RECORDS SUMMARY | 2025-04-20 09:02 | XMS_ITS | Encounter Summary ---
Author Organization [facility] Address [address] [place] [address] Care Team Providers Care Motorman/Woman Name Role Phone Idania Gaston DO Primary Care Provider [phone]- [phone] Encounter Details Date Type Department Care Team (Late st Contact Info) Description 03/07/2025 Abstract [facility] [address] [facility] [address] [place] [address] Idania Gaston, [address] [place] [address] Social History Tobacco Use Types Packs/Day Years [...] week 12/05/2024 How often do you attend [facility] or yazidism services? 1 to 4 times per year 12/05/2024 Do you belong to any clubs o r organizations such as yarsanism groups, unions, fraternal or athletic groups, or [...] Score 0 10/02/2024 [facility] - Occupational Stress [...] living in a intermediate (including now)? No 12/05/2024 Sex and Gender Information Value Date Recorded Sex Assigned at Not on file Legal Sex Male 7:11 PM EDT Gender Identity Not on file Sexual Orientation Not on file documented as of this encounter Plan of Treatment Not on file documented as of this encounter Visit Diagnoses Not on filedocumented in this encounter Care Teams Motorman/Woman Relationship Specialty Start Date End Date Idania Gaston DO [address] [place] [address] PCP - General Family Medicine 09/20/23 documented as of this encounter
--- OUTSIDE RECORDS SUMMARY | 2025-04-20 09:02 | XMS_ITS | Encounter Summary ---
Author Organization [facility] Address [address] [place] [address] Care Team Providers Care Help Desk Analyst Name Role Phone Idania Gaston DO Primary Care Provider +1- [phone] Encounter Details Date Type Department Care Team (Late st Contact Info) Description 09/22/2024 Abstract [facility] [address] [place] [address] Idania Gaston, [address] [place] [address] Social History Tobacco Use Types Packs/Day Years [...] on filedocumented in this encounter Care Teams Help Desk Analyst Relationship Specialty Start Date End Date Idania Gaston DO [address] [facility] [address] [place] [id number] PCP - General Family Medicine 09/20/23 documented as of this encounter
--- OUTSIDE RECORDS SUMMARY | 2025-04-20 09:02 | XMS_ITS | Encounter Summary ---
Author Organization [facility] Address [address] [facility] [place] [address] Care Team Providers Care Technology Lab Teacher Name Role Phone Idania Gaston DO Unavailable [phone] Petznick, Idania Mcfarlane DO Primary Care Provider [phone] Petznick, Idania Mcfarlane DO Unavailable [phone] Petznick, Idania cMfarlane DO Primary Care Provider Petznick, Idania Mcfalrane DO Unavailable Encounter Details Date Type Department Care Team (Late st Contact Info) Description 06/22/2023 Telephone [facility] [place] [facility] [address] [phone] Jaspreet Jones MD [address] [address] Social History Tobacco Use Types Packs/Day [...] on filedocumented in this encounter Care Teams Technology Lab Teacher Relationship Specialty Start Date End Date Idania Gaston, DO [address] [place] [address] PCP - [facility] 09/09/22 07/06/23 Idania Gaston, DO [address] [place] [address] PCP - General Family Medicine 03/02/23 09/19/23 Idania Gaston, DO [address] [place] [address] PCP - Medical [facility] 02/04/23 11/13/23 Idania Gaston, DO [address] [place] [address] PCP - General Family Medicine 09/20/23 Idania Gaston, DO [address] [place] [address] PCP - [facility] 09/06/23 09/05/24 documented as of this encounter
--- OUTSIDE RECORDS SUMMARY | 2025-04-20 09:02 | XMS_ITS | Encounter Summary ---
Author Organization [facility] Address [address] [place] [address] Care Team Providers Care Clerk Specialist Name Role Phone Idania Gaston DO Unavailable [phone] Idania Gaston DO Primary Care Provider + [phone] Idania Gaston DO Unavailable [phone] Encounter Details Date Type Department Care Team (Late st Contact Info) Description 10/27/2023 Abstract [facility] [address] [place] [address] Idania Gaston DO [address] [place] [address] Social History Tobacco Use Types Packs/Day Years [...] on filedocumented in this encounter Care Teams Clerk Specialist Relationship Specialty Start Date End Date Idania Gaston DO [address] [place] [address] PCP - [facility] [place] [facility] 02/04/23 11/13/23 Idania Gaston DO [address] [place] [address] PCP - General Family Medicine 09/20/23 Idania Gaston DO [address] [place] [address] PCP - [facility] 09/06/23 09/05/24 documented as of this encounter
--- OUTSIDE RECORDS SUMMARY | 2025-04-20 09:02 | XMS_ITS | Encounter Summary ---
Author Organization [facility] Address [address] [place] [address] Care Team Providers Care Tomography Technologist Name Role Phone Idania Gaston DO Primary Care Provider +1- [phone] Idania Gaston DO Unavailable [phone] Encounter Details Date Type Department Care Team (Late st Contact Info) Description 01/07/2024 Orders Only [facility] [address] [place] [address] Idania Gaston, [address] [place] [address] Social History Tobacco Use Types Packs/Day Years [...] on filedocumented in this encounter Care Teams Tomography Technologist Relationship Specialty Start Date End Date Idania Gaston DO [address] [place] [address] PCP - General Family Medicine 09/20/23 Idania Gaston DO [address] [place] [address] PCP - [facility] 09/06/23 09/05/24 documented as of this encounter
--- OUTSIDE RECORDS SUMMARY | 2025-04-20 09:02 | XMS_ITS | Encounter Summary ---
Author Organization [facility] Address [address] [place] [address] Care Team Providers Care Digital Engineer Name Role Phone Idania Gaston DO Primary Care Provider +1- [phone] Idania Gaston DO Unavailable [phone] Encounter Details Date Type Department Care Team (Late st Contact Info) Description 01/17/2024 Abstract [facility] [address] [facility] [address] [place] [address] Idania Gaston, DO [address] [facility] [address] [place] [address] Social History Tobacco Use Types Packs/Day Years [...] filedocumented in this encounter Care Teams Digital Engineer Relationship Specialty Start Date End Date Idania Gaston DO [address] [place] [address] PCP - General Family Medicine 09/20/23 Idania Gaston DO [address] [place] [address] PCP - [facility] 09/06/23 09/05/24 documented as of this encounter
--- OUTSIDE RECORDS SUMMARY | 2025-04-20 09:02 | XMS_ITS | Encounter Summary ---
Author Organization [facility] Address [address] [place] [address] Care Team Providers Care Emd Special Education Teacher Name Role Phone Idania Gaston DO Primary Care Provider +- [phone] Idania Gaston DO Unavailable [phone] Encounter Details Date Type Department Care Team (Late st Contact Info) Description 11/24/2023 Abstract [facility] [address] [facility] [address] [place] [address] Idania Gaston, DO [address] [facility] [address] [place] [address] Social History Tobacco Use Types Packs/Day Years [...] on filedocumented in this encounter Care Teams Emd Special Education Teacher Relationship Specialty Start Date End Date Idania Gaston DO [address] [place] [address] PCP - General Family Medicine 09/20/23 Idania Gaston DO [address] [place] [address] PCP - [facility] 09/06/23 09/05/24 documented as of this encounter
--- OUTSIDE RECORDS SUMMARY | 2025-04-20 09:02 | XMS_ITS | Encounter Summary ---
Author Organization [facility] Address [address] [place] [address] Care Team Providers Care Investment Analyst Name Role Phone Idania Gaston DO Primary Care Provider +1- [phone] Encounter Details Date Type Department Care Team (Late st Contact Info) Description 02/13/2025 Abstract [facility] [address] [place] [address] Idania Gaston, [address] [place] [address] Social History Tobacco Use Types Packs/Day Years [...] week 12/05/2024 How often do you attend [facility] or voodoo services? 1 to 4 times per year 12/05/2024 Do you belong to any clubs o r organizations such as tenriism groups, unions, fraternal or athletic groups, or [...] Recorded Patient Health Questionnaire-2 Score 0 10/02/2024 [facility] - Occupational Stress Questionnaire Answer Date [...] any time in the past 12 m [facility], were you homeless or living [...] on filedocumented in this encounter Care Teams Investment Analyst Relationship Specialty Start Date End Date Idania Gaston DO [address] [place] [address] PCP - General Family Medicine 09/20/23 documented as of this encounter
--- OUTSIDE RECORDS SUMMARY | 2025-04-20 09:02 | XMS_ITS | Encounter Summary ---
Author Organization [facility] Address [address] [place] [address] Care Team Providers Care Green Chain Puller Name Role Phone Idania Gaston DO Primary Care Provider +- [phone] Idania Gaston DO Unavailable [phone] Encounter Details Date Type Department Care Team (Late st Contact Info) Description 11/22/2023 Abstract [facility] [address] [facility] [address] [place] [phone] Idania Gaston, DO [address] [facility] [address] [place] [address] Social History Tobacco Use Types Packs/Day Years [...] on filedocumented in this encounter Care Teams Green Chain Puller Relationship Specialty Start Date End Date Idania Gaston DO [address] [place] [address] PCP - General Family Medicine 09/20/23 Idania Gaston DO [address] [place] [address] PCP - [facility] 09/06/23 09/05/24 documented as of this encounter
--- OUTSIDE RECORDS SUMMARY | 2025-04-20 09:02 | XMS_ITS | Encounter Summary ---
Author Organization [facility] Address [address] [place] [address] Care Team Providers Care Mine Foreman Name Role Phone Idania Gaston DO Primary Care Provider [phone]- [phone] Idania Gaston DO Unavailable [phone] Reason for Visit * Reason Comments Med Refill Encounter Details Date Type Department Care Team (Late st Contact Info) Description 05/02/2024 Refill [facility] [address] [place] [address] Idania Gaston DO [address] [place] [address] Type 2 diabetes mellitus with peripheral neuropathy [...] (HCC) documented in this encounter Care Teams Mine Foreman Relationship Specialty Start Date End Date Idania Gaston DO [address] [place] [address] PCP - General Family Medicine 09/20/23 Idania Gaston DO [address] [place] [address] PCP - [facility] 09/06/23 09/05/24 documented as of this encounter
--- OUTSIDE RECORDS SUMMARY | 2025-04-20 09:03 | XMS_ITS | Encounter Summary ---
Author Organization [facility] [employer] [facility] tem Address [id number] [address] [place] [address] Care Team Providers Care Studio Sales Associate Name Role Phone Idania Gaston DO Primary Care Provider [phone]- [phone] Reason for Referral * Medication Prior Authorization - Pending Review Specialty Diagnoses / Procedures Referred By Presley t Referred To Contact Diagnoses Diabetic peripheral neuropathy ([facility]) Matilde Nieves PA-C [address], [address] [place] [address] Phone: tel: fax: Referral ID Status Reason Start Date Expiration Date V isits Requested Visits Authorized [id number] Pending Review 1 1 Reason for Visit * Reason Onset Date Comments Medication 04/06/2025 Encounter Details Date Type Department Care Team (Late st Contact Info) Description 04/06/2025 Telephone [facility] [address] [place] [address] Marielos Abreu, diesel engine inspector Social History Tobacco Use Types Packs/Day Years [...] gets littleto no relief with OTC Tylenol. * Telephone Encounter - Justine Vargas RN - 04/06/2025 9:54 AM EDT Spoke with Charla rojo, requests prescription send to [facility] pharmacy in [place]. * Telephone Encounter - Matilde Nieves PA-C - 04/06/2025 9:54 AM EDT done * Telephone Encounter - Justine Vargas RN - 04/06/2025 9:54 AM EDT Not done * Telephone Encounter - Matilde Nieves PA-C - 04/06/2025 9:54 AM EDT done * Telephone Encounter - Ny Aguilar - 04/06/2025 9:54 AM EDT [facility] pharmacy called and stated that the prior auth for pt's Qutenza has been denied. * Telephone Encounter - Matilde Nieves PA-C - 04/06/2025 9:54 AM EDT Noted let patient know * Telephone Encounter - Justine Vargas RN - 04/06/2025 9:54 AM EDT This is the denial explanation: QUTENZA KIT 8% 4-PCH is denied because it is not on your plan's Drug List (formulary). Medication authorization requires the following: (1) You need to try one (1) of these covered drugs: (a) Desipramine. (b) Nortriptyline. (c) Venlafaxine. (2) OR your doctor needs to give us specific medical reasons why one (1) of the covered drug(s) is not appropriate for you. Reviewed by: [facility]. If the treating physician would like to discuss this coverage decision with the physician or healthcare professional reviewer, please call [facility] Prior Authorization department at 1- [phone]. How would you like to proceed? documented in this encounter Plan of Treatment Upcoming Encounters Date Type Department Care Team (Latest Contact Info) Description 04/27/2025 1:50 PM EDT Hospital Encounter [facility] - [facility] Procedures [address] [address] Tyshawn Jacobson MD [address] [facility] [place] [address] 04/27/2025 1:50 PM EDT - 04/27/2025 1:57 PM EDT Surgery [facility] - [facility] Procedures [address] [place] [phone] Tyshawn Jacobson MD [address] [place] [address] INJECTION BLOCK EPIDURAL CAUDAL STEROID [97081 (CPT )] 05/10/2025 1:00 PM EDT Office Visit [facility] [address] [place] [address] Maciej Roldan, KAREN [address] [facility], 2nd [place] [address] 05/17/2025 10:30 AM EDT Office Visit [facility] [address] [place] [address] [place] [address] Chintan Quinn, [address] [facility], [address], [address] [place], [place] [address] Scheduled Procedures Name Priority Associated Diagnoses Date/Ti me INJECTION BLOCK EPIDURAL CAUDAL STEROID Spinal stenosis of lumbar region with neurogenic claudication 04/27/2025 1:50 PM EDT documented as of this encounter Visit Diagnoses Diagnosis Spinal stenosis of lumbar region with neurogenic claudication- Primary Diabetic peripheral neuropathy ([facility])- Primary Type II or unspecified type diabetes mellitus with neurological manifestations, not stated as uncontrolled Spinal stenosis of lumbar region with neurogenic claudication documented in this encounter Care Teams Studio Sales Associate Relationship Specialty Start Date End Date Idania Gaston DO [address] [place] [address] PCP - General 06/15/18 documented as of this encounter
--- OUTSIDE RECORDS SUMMARY | 2025-04-20 09:03 | XMS_ITS | Encounter Summary ---
Author Organization [facility] Address [address] [place] [address] Care Team Providers Care Melt Superintendant Name Role Phone Idania Gaston DO Primary Care Provider +1- [phone] Encounter Details Date Type Department Care Team (Late st Contact Info) Description 03/27/2025 Abstract [facility] [address] [address] [place] [address] Idania Gaston, [address] [place] [address] Social History Tobacco Use Types Packs/Day Years [...] week 12/05/2024 How often do you attend [facility] or evangelical services? 1 to 4 times per year [...] Recorded Patient Health Questionnaire-2 Score 0 10/02/2024 [facility] - Occupational Stress Questionnaire [...] any time in the past 12 m [facility], were you homeless or living [...] on filedocumented in this encounter Care Teams Melt Superintendant Relationship Specialty Start Date End Date Idania Gaston DO [address] [place] [address] PCP - General Family Medicine 09/20/23 documented as of this encounter
--- OUTSIDE RECORDS SUMMARY | 2025-04-20 09:03 | XMS_ITS | Encounter Summary ---
Author Organization [facility] tem Address [id number] [address] [place] [address] Care Team Providers Care Coal And Ash Supervisor Name Role Phone Idania Gaston DO Primary Care Provider +1- [phone] Encounter Details Date Type Department Care Team [...] Description 04/27/2025 1:50 PM EDT Hospital Encounter [facility] - Pain Procedures [address] [place] [address] Tyshawn Jacobson MD [address] [place] [address] 04/27/2025 1:50 PM EDT - 04/27/2025 1:57 PM EDT Surgery [facility] - Pain Procedures [address] [place] [address] Tyshawn Jacobson MD [address] [place] [address] INJECTION BLOCK EPIDURAL CAUDAL STEROID [63849 (CPT )] 05/10/2025 1:00 PM EDT Office Visit [facility] Management Clinic [address] [place] [address] Maciej Roldan PA [address] [facility] 2nd [place] [address] 05/17/2025 10:30 AM EDT Office Visit [facility] [address] [place] [address] [place] [address] Chintan Quinn DO [address] [place] [address], [facility] [address] [place], [place] [address] Scheduled Procedures Name Priority Associated Diagnoses Date/Ti me INJECTION BLOCK EPIDURAL CAUDAL STEROID Spinal stenosis of lumbar region with neurogenic claudication 04/27/2025 1:50 PM EDT documented as of this encounter Visit Diagnoses Not on filedocumented in this encounter Care Teams Coal And Ash Supervisor Relationship Specialty Start Date End Date Idania Gaston DO [address] [place] [address] PCP - General 06/15/18 documented as of this encounter
--- OUTSIDE RECORDS SUMMARY | 2025-04-20 09:03 | XMS_ITS | Clinical Summary ---
Author Organization [employer] tem Address [id number] [address] [place] [address] Care Team Providers Care Sheet Metal Work Furnace Installer Name Role Phone Idania Gaston DO Primary Care Provider +1- [phone] Allergies Active Allergy Reactions Criticality Noted Date Comments Adhesive Tape-Silicones Rash Medium 06/18/2022 Haloperidol Anxiety Low 09/25/2023 Latex Rash Medium 06/18/2022 If on for long periods of time Other Reaction(s): Unknown If on for long periods of time Webster Seed Abdominal Pain Low 06/16/2018 Runny nose, [...] Amount: 4 tablets 12 tablet 5 04/01/20 25 capsaicin-skin cleanser (QUTENZA) 8 % kitIndications: Diabetic peripheral neuropathy ([facility]) Apply 1,120 SQ CM (4 patches total) topically once for 1 dose. 1 kit 5 04/11/20 25 Active Problems Problem Noted Date Diagnosed Date Spinal stenosis of lumbar re gion with neurogenic claudication 04/05/2025 Encounters Date Type Department Care Team Description 04/10/2025 3:48 PM EDT - 04/10/2025 4:16 PM EDT Emergency [facility] - Emergency [address] [place] [address] Anxiety (Primary Dx) Discharge Disposition: Home 04/10/2025 Travel 04/06/[address] [facility] - Pain Management Clinic [address] [place] [address] Marielos Abreu, teasel gig operator 04/05/2025 10:00 AM EDT Office Visit [facility] - [facility] Management [facility] [address] [place] [address] Maciej Roldan PA Spinal stenosis of lumbar region with neurogenic claudication (Primary Dx); Diabetic peripheral neuropathy ([facility]) 04/03/2025 Travel 04/03/2025 Orders Only [facility] - [facility] Management Clinic [address] [place] [address] Maciej Roldan PA 03/28/2025 11:56 PM EDT - 03/29/2025 12:25 AM EDT Emergency [facility] - Emergency [address] [place] [address] Donnie Fontenot MD Chronic low back pain [...] Description 04/27/2025 1:50 PM EDT Hospital Encounter [facility] - Pain Procedures [address] [place] [address] Tyshawn Jacobson MD [address] [place], [place] [address] 04/27/2025 1:50 PM EDT - 04/27/2025 1:57 PM EDT Surgery [facility] - Pain Procedures [address] [place] [address] Tyshawn Jacobson MD [address] [place], [place] [address] INJECTION BLOCK EPIDURAL CAUDAL STEROID [08844 (CPT )] 05/10/2025 1:00 PM EDT Office Visit [facility] Management Clinic [address] [facility] [place] [address] Maciej Roldan PA [address] [place], [place] [address] 05/17/2025 10:30 AM EDT Office Visit [facility] [address] [place] [address] Chintan Quinn, [address] [facility] [place], [place] [address] Scheduled Procedures Name Priority Associated Diagnoses Date/Ti me INJECTION BLOCK EPIDURAL CAUDAL STEROID Spinal stenosis of lumbar region with neurogenic claudication 04/27/2025 1:50 PM EDT Health Maintenance Due Date Last Done Comments Diabetic Ophthalmology Exam 1971 Tobacco Counseling 1971 Depression Screening 1983 Adult BMI Follow Up Plan 1989 Diabetic Foot Exam 1989 COVID-19 Vaccine (2023-10 5 season) 2024 08/23/2021, 08/12/2021, 01/23/2021, Additional history exists Influenza Vaccine 05/07/2025 06/20/2024, , 06/22/2022, Additional history exists Statin Use: Diabetic 12/28/2025 12/28/2024 Adult BMI Screening 04/10/2026 04/10/2025 Tobacco Screening 04/10/2026 04/10/2025 DTaP,Tdap and Td Vaccines (3 - Td or Tdap) 05/01/2031 05/01/2021, 06/06/2010 Zoster (Shingles) Vaccine Completed 01/18/2023, 06/2023 Medical Devices Implanted Type Area Presentation Team Member Device Identifier Shelf Expiration Date Model / Serial / Lot Right Foot Insurance [employer] MEDICARE Care Teams Sheet Metal Work Furnace Installer Relationship Specialty Start Date End Date Idania Gaston DO [address] [place] [address] PCP - General 06/15/18
--- OUTSIDE RECORDS SUMMARY | 2025-04-20 09:03 | XMS_ITS | Encounter Summary ---
Author Organization [facility] Address [address] [address] Care Team Providers Care Power Tool Repairer Name Role Phone Idania Gaston DO Primary Care Provider +1- [phone] Encounter Details Date Type Department Care Team (Late st Contact Info) Description 04/09/2025 Abstract [facility] [address] [facility] [facility] [place] [address] Idania Gaston, [address] [place] [address] Social History Tobacco Use Types Packs/Day Years [...] week 12/05/2024 How often do you attend [facility] or bahai services? 1 to 4 times per year 12/05/2024 Do you belong to any clubs o r organizations such as presybeterian groups, unions, fraternal or athletic groups, or [...] Recorded Patient Health Questionnaire-2 Score 0 10/02/2024 [facility] - Occupational Stress Questionnaire Answer Date [...] any time in the past 12 m [facility], were you homeless [...] on filedocumented in this encounter Care Teams Power Tool Repairer Relationship Specialty Start Date End Date Idania Gaston DO [address] [place] [address] PCP - General Family Medicine 09/20/23 documented as of this encounter
--- OUTSIDE RECORDS SUMMARY | 2025-04-20 09:03 | XMS_ITS | Encounter Summary ---
Author Organization [facility] Address [address] [place] [address] [place] [address] Care Team Providers Care Boots And Shoes Supervisor Name Role Phone Idania Gaston DO Primary Care Provider +1- [phone] Reason for Visit * Reason Onset Date Comments Med Refill 04/10/2025 Encounter Details Date Type Department Care Team (Late st Contact Info) Description 04/10/2025 Refill [facility] [address] [facility] [address] [place] [address] Elizabeth Garcia MA Neuropathy; Type 2 diabetes [...] How often do you attend chur or nondenominational services? 1 to 4 times per year 12/05/2024 Do you belong to any clubs o r organizations such as sikhism groups, unions, fraternal or athletic groups, or [...] Recorded Patient Health Questionnaire-2 Score 0 10/02/2024 [facility] - Occupational Stress [...] any time in the past 12 m [facility], were you homeless or living in a penitentiary (including now)? No 12/05/2024 Sex and Gender Information Value Date Recorded Sex Assigned at Not on file Legal Sex Male 7:11 PM EDT Gender Identity Not on file Sexual Orientation Not on file documented as of this encounter Miscellaneous Notes * Telephone Encounter - Idania Gaston DO - 04/11/2025 12:05 PM EDT He told the ER doctor yesterday that he didn't know what happened to the pills as he filled them on03-15 and he is too soon for a refill. I suspect he is taking more than prescribed. This is a controlled substance and I cannot fill this at least until 04-13-25. He can call back then and I will fill it. He should not take more than what is prescribed. * Telephone Encounter - Elizabeth Garcia MA [...] (HCC) documented in this encounter Care Teams Boots And Shoes Supervisor Relationship Specialty Start Date End Date Idania Gaston DO [address] [place] [address] PCP - General Family Medicine 09/20/23 documented as of this encounter
--- OUTSIDE RECORDS SUMMARY | 2025-04-20 09:03 | XMS_ITS | Clinical Summary ---
Author Organization [facility] Address [address], [address] [place] [address] Care Team Providers Care Title Supervisor Name Role Phone Unavailable Primary Care Provider Unavailabl e Allergies Active Allergy Reactions Criticality Noted Date Comments Latex Medium 02/02/2025 Vancomycin Medium 02/02/2025 Medications methocarbamol (ROBAXIN) 500 MG tablet Take 1 tablet by mouth 3 times daily as needed (back spasms) Active dexAMETHasone (DECADRON) 1 MG tablet Take 1 tablet by mouth daily as needed (as needed) Active ergocalciferol (ERGOCALCIFEROL) 1.25 MG (86353 UT) capsule Take 1 capsule by mouth [...] EDT - 02/02/2025 12:17 PM EDT Emergency [facility] Emergency Department [address] [place] [address] uHgo Lyons MD Idiopathic peripheral neuropathy (Primary Dx); [...] 136 - 145 mmol/L 02/02/2025 10:36 AM [facility] Potassium 6.1(HH) 3.7 - 5.3 mmol/L 02/02/2025 10:36 AM [facility] Comment: Specimen hemolysis has exceeded the interference as defined by Yaima. Value may be falsely increased. Suggest recollection if clinically indicated. Chloride 98 98 - 107 mmol/L 02/02/2025 10:36 AM [facility] CO2 23 20 - 31 mmol/L 02/02/2025 10:36 AM [facility] Anion Gap 16 9 - 16 mmol/L 02/02/2025 10:36 AM [facility] Glucose 296(H) 74 - 99 mg/dL 02/02/2025 10:36 AM [facility] BUN 69(H) 6 - 20 mg/dL 02/02/2025 10:36 AM [facility] Creatinine 7.0(HH) 0.70 - 1.20 mg/dL 02/02/2025 10:36 AM [facility] Est, Glom Filt Rate 9(L) >60 mL/min/1.7 3m2 02/02/2025 10:36 AM [facility] Comment: These results are not intended [...] 10 9 - 20 02/02/2025 10:36 AM [facility] Calcium 9.3 8.6 - 10.4 mg/dL 02/02/2025 10:36 AM T [facility] 02/02/2025 10:3 6 AM EDT 02/02/2025 10:46 AM EDT us Hugo Lyons MD CHEMISTRY ORDERABLES Final R esult [facility] [address] [phone] * (ABNORMAL) CBC with Auto Differential (02/02/2025 9:47 AM EDT) WBC 10.4 3.5 - 11.3 k/uL 02/02/2025 9:47 AM [facility] RBC 3.32(L) 4.21 - 5.77 m/uL 02/02/2025 9:47 AM [facility] Hemoglobin 10.4(L) 13.0 - 17.0 g/dL 02/02/2025 9:47 AM [facility] Hematocrit 31.8(L) 40.7 - 50.3 % 02/02/2025 9:47 AM [facility] MCV 95.8 82.6 - 102.9 fL 02/02/2025 9:47 AM [facility] MCH 31.3 25.2 - 33.5 pg 02/02/2025 9:47 AM [facility] MCHC 32.7 28.4 - 34.8 g/dL 02/02/2025 9:47 AM [facility] RDW 14.6(H) 11.8 - 14.4 % 02/02/2025 9:47 AM [facility] Platelets 208 138 - 453 k/uL 02/02/2025 9:47 AM [facility] MPV 10.1 8.1 - 13.5 fL 02/02/2025 9:47 AM [facility] NRBC Automated 0.0 0.0 per 100 WBC 02/02/2025 9:47 AM [facility] Neutrophils % 76(H) 36 - 65 % 02/02/2025 9:47 AM [facility] Lymphocytes % 13(L) 24 - 43 % 02/02/2025 9:47 AM [facility] Monocytes % 7 3 - 12 % 02/02/2025 9:47 AM [facility] Eosinophils % 3 1 - 4 % 02/02/2025 9:47 AM [facility] Basophils % 0 0 - 2 % 02/02/2025 9:47 AM [facility] Immature Granulocytes % 1(H) 0 % 02/02/2025 9:47 AM [facility] Neutrophils Absolute 7.75 1.50 - 8.10 k/uL 02/02/2025 9:47 AM [facility] Lymphocytes Absolute 1.35 1.10 - 3.70 k/uL 02/02/2025 9:47 AM [facility] Monocytes Absolute 0.76 0.10 - 1.20 k/uL 02/02/2025 9:47 AM [facility] Eosinophils Absolute 0.35 0.00 - 0.44 k/uL 02/02/2025 9:47 AM [facility] Basophils Absolute 0.04 0.00 - 0.20 k/uL 02/02/2025 9:47 AM [facility] Immature Granulocytes Absolute 0.13 0.00 - 0.30 k/uL 02/02/2025 9:47 AM [facility] Blood BLOOD SPECIMEN / Unknown 02/02/2025 9:47 AM EDT 02/02/2025 9:57 AM EDT us Hugo Lyons MD HEMATOLOGY ORDERABLES Final Result [facility] [address] [phone] * XR FOOT RIGHT (MIN 3 VIEWS) [...] Final Result from Last 3 Months Insurance [facility] D[facility] [employer]
--- OUTSIDE RECORDS SUMMARY | 2025-04-20 09:07 | XMS_ITS | CCD ---
Author Organization [facility] Care Team Providers Care Coordinate Measuring Machine Technician Name Role Phone Ada Uriostegui Unavailable BERTIN RUSSELL Admitting Unavailable YVONNEBERTIN MYERS Attending Unavailable PETZNICK, IDANIA Primary Care Unavailable PETZNICK, IDANIA Referring Unavailable Petjacy, DO Idania Primary Care Provider [phone] MD Ada Uriostegui Attending Provider Marilin, Idania Primary Care Provider MD Ada Uriostegui Attending Provider [phone] Sj Francois Primary Care Physician Sj Garcia Unavailable Unavailable Sj Francois Primary Care Physician Samantha Ricketts, DO Idania Primary Care Provider MD Ada Uriostegui Attending Provider [phone] DO Yosef Castillo Emergency Provider [phone] Sj Francois Primary Care Physician Samantha Ricketts, DO Idania Primary Care Provider [phone] MD Ada Uriostegui Attending Provider MD Evans Narayanan Jr Emergency Provider Sj Francois Primary Care Physician Sj Garcia Primary Care Physician Samantha Ricketts, DO Idania Primary Care Provider [phone] MD Ada Uriostegui Attending Provider [phone] AlessandroSj Britton Attending Samantha Ricketts Idania Primary [...] Other Provider MD Zenon Cage Other Provider [phone] MD Conor Mcnamara Other Provider MD Yocasta Villalba Other Provider Pettanoick, DO Idania Primary Care Provider [phone] MD Evans Narayanan Jr Emergency Provider HARSH Hill Emergency Provider [phone] MD Ada Uriostegui Attending Provider [phone] MD Delano Mondragon Emergency Provider Frings, [...] Unavailable Pettanoick, DO Emerson Primary Care Provider [phone] HARSH Kennedy Attending Provider DO Chintan Brewster Attending Provider Alessandro, Sj P Primary Care Physician Samantha Francois, Sj P Primary Care Physician Samantha tate Alessandro, Sj P Primary Care Physician Liliamvanathaniel Francois, Sj P Primary Care Physician Liliamvanathaniel tate Pettanoick, DO Emerson Primary Care Provider HARSH Kennedy Attending Provider DO Chintan Brewster Attending Provider Ray, DO Clara Mcfarlane Emergency Provider [facility] [place], Sj P Primary Care Physician Rasheeda Kirkland Unavailable Petznick, DO Idania Primary Care Provider MD Ramirez Jean Attending Provider Pettanoick, DO Idania Primary Care Provider MD Chintan Sweet Emergency Provider MD Augusta Hill Attending Provider Ramirez Jaen Unavailable Petjacy DO, Idania M Unavailable Petznick DO, Idania M Unavailable Petznick DO, Idania M Primary Care Provider DO Flakito High Attending Provider Sj Francois Primary Care Physician Samantha Ricketts, Idania Primary Care Provider MD Ramirez Jean Attending Provider [phone] MD Chintan Sweet Emergency Provider MD Augusta Hill Attending Provider DO Flakito High Attending Provider [phone] DO Flakito High Referring Provider DO Chong Dixon Emergency Provider DO Buddy Murguia Admit Provider DO Buddy Murguia Attending Provider MD Yocasta Villalba Other Provider MD Chintan Hernández Other Provider TIARA Vu Other Provider DO Amy Escudero Attending Provider DO Clara Bell Emergency Provider Marilin, Idania Primary Care Provider MD Ramirez Jean Attending Provider [phone] TIARA Mondragon Attending Provider [phone] Marilin, Idania Primary Care Provider Marilin, Idania Primary Care Provider DO Flakito High Attending Provider Marilin, Idania Primary Care Provider Keister, DO Chong A Emergency Provider [phone] Petznick DO, Idania M Unavailable [phone] PETTANOICK, IDANIA M Primary Care Unavailable PETZNICK, IDANIA Attending Unavailable PETZNICK, IDANIA Admitting Unavailable Petznick DO, Idania Primary Care Provider [phone] Delano Mondragon MD Emergency Provider Will Cerna PA-C Emergency Provider Lindbloom DO, Maxime Admit Provider Lindbloom DO, Maxime Attending Provider Chintan Hernández MD Other Provider Alexa PALOMARES, Jf Other Provider Wayne MICHEL-C, Marielos Other Provider Unavailable Ada Uriostegui MD Other Provider Yocasta Villalba MD Other Provider Gi Mondragon DPM Other Provider Petznabigail DO, Idania Primary Care Provider Will Cerna PA-C Emergency Provider Lindbloom DO, Maxime Admit Provider Lindbloom DO, Maxime Attending Provider Chintan Hernández MD Other Provider Jf Liu MD Other Provider Wayne MICHEL-C, Marielos Other Provider Unavailable Ada Uriostegui MD Other Provider Orly PALOMARES, Yocasta Other Provider Gi Mondragon DPM Other Provider Venkat Burgos DO Emergency Provider [phone] PETTANOICK, IDANIA M Attending Unavailable PETZNICK, [...] Attending Unavailable Declan Silverio APRN Emergency Provider [phone] Ivana Salcedo DO Emergency Provider [phone] Unavailable Primary Care Provider Unavailabl e IDANIA RICKETTS Primary Care Physician [phone] PEDRO ALVAREZ Admitting Unavailable MOUKACRISTOFER PEDRO [...] CHONG Referring Unavailable JENIFER, REFUGIO Referring Unavailable JEINFER, REFUGIO Referring Unavailable JENIFER, REFUGIO Referring Unavailable [...] Unavailable Petznick DO, Idania Primary Care Provider Loretta DO, Venkat Mcfarlane Emergency Provider Unavailable Petznick DO, Idania Primary Care Provider Petznick DO, Idania Referring Provider [phone] Jey Ramos MD Attending Provider [phone] Nuria Fermin LPN Attending Provider Unavailable KieperSavanah wood APRN Emergency Provider Nusrat HOUSE, Declan Emergency Provider Nehemiah FALCON, Will Mcgovern Emergency Provider [phone] Petznick DO, Idania M Primary Care Provider PETZNICK, IDANIA M Primary Care Unavailable MEREDITH [...] Unavailable PETZNICK, IDANIA M Primary Care Unavailable CLARA VIEYRA Attending Unavailable KAYLEE MESA Attending Unavailable PETZNICK, IDANIA M Referring Unavailable PETZNICK, IDANIA M Primary Care Unavailable Ivana Salcedo M Attending Unavailable Krise Ivana M Admitting Unavailable Petznick, Idania Primary Care Unavailable JimepertSavanah A Admitting Unavailable KiepertSavanah Attending Unavailable Petznick, Idania Primary Care Unavailable Petznick, Idania Primary Care Unavailable Will Cerna Admitting Unavailable Will Cerna Attending Unavailable Petznick, Idania Primary Care Unavailable Chong Dixon Admitting Unavailable Chong Dixon Attending Unavailable Petznick, Idania Primary Care Unavailable Delano Mondragon Admitting Unavailable Delano Mondragon Attending Unavailable Maxime Magana Admitting UnavailMaxime Worthy Attending Unavailabl e Chintan Hernández Consulting Unavailable Petznick, Idania Primary Care Unavailable Jf Liu Consulting Unavailable Marielos Black Consulting Unavailable Ada Uriostegui Consulting Unavailable Yocasta Villalba Consulting Unavailable Gi Mondragon Consulting Unavailable Venkat Burgos Admitting Unavailable Venkat Burgos Attending Unavailable Idania Ricketts Primary Care Unavailable Declan Silverio Admitting Unavailable Declan Silverio Attending Unavailable Idania Ricketts Primary Care Unavailable Allergies Allergy Classification Reported Allergen(s) Allergy Type Date of Onset Reaction(s) Facility Glycopeptides (antibiotic) (1 source) Vancomycin Drug Allergy 4 [facility] Haloperidol (1 source) Haloperidol Drug Allergy 4 [facility] Latex (1 source) Latex Substance Allergy 4 [facility] (20 sources) Latex; Translations: [latex] Allergy to substance (disorder) 2 [facility] Repository Comment on above: pt states allergy is only if exposed to latex for extended periods. (20 sources) Haloperidol; Translations: [HALOPERIDOL] Drug Allergy 3 [facility] Comment on above: anxious, restless, a gitated (2 sources) Adhesive agent; Translations: [ADHESIVE] Drug allergy (disorder) [address] [facility] Repository (20 sources) Vancomycin; Translations: [vancomycin] Drug Allergy 3 [facility] (20 sources) [place] Oil; Translations: [SUNFLOWER OIL] Propensity to adverse reactions [address] [facility] (20 sources) Wound Dressing Adhesive Drug Allergy 2 [facility] (1 source) ADHESIVE TAPE-SILICONES; Translations: [ADHESIVE TAPE-SILICONES] Propensity to adverse reactions to drug (disorder) 2 [facility] Repository (2 sources) sunflower seed extract; Translations: [SUNFLOWER SEED] Drug Allergy 8 Abdominal Pain Swarm Work Phone: (1 source) Vancomycin Drug Allergy 5 [facility] Repository Medications Current Medications Medication Drug Class(es) [...] mouth every six hours for pain HYDROcodone-acetaminophen ([place]) 5-325 MG tablet Indications: Lymphedema Take 1 tablet by mouth every 6 (six) hours if needed for severe pain for up to 5 days 20 tablet 09/19/2024 09/24/2024 Active Start: 08-29-2024 End: 09-04-2024 take 1 tablet by mouth every six hours as needed for pain HYDROcodone-acetaminophen ([place]) 5-325 MG tablet TAKE 1 TABLET BY MOUTH EVERY 6 HOURS FOR 5 DAYS NEEDED FOR PAIN 08/29/2024 09/04/2024 Discontinued (Therapy completed) Start: 05-11-2024 End: 05-16-2024 take 1 tablet by mouth every six hours for pain HYDROcodone-acetaminophen ([place]hoe) 5-325 MG tablet Indications: Neuropathy Take 1 [...] for 3 day(s), 12 tab(s), Refill(s) 0, [id number], 187, cm, 02/02/25 18:12:00 EDT, Height/Length Dosing, [...] (2 mg total) by mouth. Active calcitriol 0.44506 mg oral capsule (20 sources) Vitamin D3 [...] Continuous Blood Gluc Receiv er (Dexcom G7 Cap Blocker) device (20 sources) Start: 12-21-2022 Continuous Blo od Gluc Cap Blocker (Dexcom G7 Cap Blocker) device 1 (one) time each day at the same time. 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) Inject 110 units for breakfast subcutaneous and [...] afternoon Start: 07-29-2022 inject 45 [IU] by loivera bcutaneous injection once daily Insulin Regular Hum [...] Daily at bedtime as needed for insomnia 4 November 01, 2022 1:00am November 04, 2022 5:58pm Start: 07-29-2022 End: 10-10-2022 take 1 tablet by mouth once daily at bedtime as needed Trazodone 50 mg tablet Discontinued 50 MG PO Daily at bedtime as needed for insomnia July 29, 2022 1:00am October 10, 2022 5:28am Vitamin A 3 MG (29683 UT) (4 sources) take 1 capsule by mouth once jocelyn ly take 1 capsule by mouth once jocelyn ly Vitamin A 3 MG (23901 UT) 1 capsule Orally Once a day [...] Drug Class(es) Dates Sig (Normalized) Sig (Original) [id number] actuat albuterol 0.09 mg/actuat metered dose [...] 8:41pm Start: 03-02-2023 take 2 tablets by [facility] in the morning furosemide (Lasix) 40 MG [...] 16, 2023 12:07pm take 1 tablet by [facility] every twelve hours Furosemide 80 MG 1 tablet Orally twice a day for 30 days Active take 2 tablets by mo [facility] every twenty-four hours Lasix 40 MG [...] Start: 05-17-2024 take 1 capsule by mo [facility] three times weekly gabapentin (Neurontin) 300 MG capsule Indications: Type 2 diabetes mellitus with peripheral neuropathy (CMS/HCC) Take 1 capsule (300 mg) by mouth 3 (three) times a week After dialysis 30 capsule 3 05/17/2024 Active Start: 05-17-2024 take 1 capsule by mo [facility] three times weekly gabapentin (Neurontin) 300 [...] 2019 2:31pm take 2 capsules by m [facility] four times daily gabapentin (NEURONTIN) 100 [...] Discontinued 150 MG PO Three times daily 02 05March 11, 2025 12:00am March 26, 2025 8:42am [...] Start: 10-10-2022 take 1 capsule by mo [facility] once daily Pregabalin (Lyrica) 50 mg capsule [...] 18, 2023 8:50am [place] [address] mg powder for oral suspension (20 sources) [...] TOPICAL 3 to 4 times per day February 13, 2025 12:00am B[place] Compounded Item: [...] diabetes mellitus with ESRD (end-stage renal disease) ([facility]) Inject 7.5 mg under the skin [...] 2022 12:00am take 1 capsule by mo [facility] once daily vitamin B complex capsule take [...] enlarged lymph nodes] Onset: 4 08-07-2024 Episodic Miscellaneous mental health disorders (20 sources) Anxiety; Translations: [Other symptoms and signs involving emotional state] 07-29-2022 Episodic Nutritional deficiencies (20 sources) Vitamin D deficiency; Translations: [Vitamin D deficiency, unspecified] Onset: 3 03-02-2023 Chronic Open wounds of extremities (20 sources) Unspecified open wound, right foot, initial encounter; Translations: [Injury of right foot] Onset: 2 11-22-2023 Episodic Other aftercare (1 source) Other care home (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 therapy Episodic Other aftercare (14 sources) Drug therapy finding; Translations: [Other director of infection control (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 therapy] 12-16-2023 Episodic Other circulatory disease (15 sources) Arteriovenous fistula; 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 fistula, acquired] 12-06-2023 Chronic Other circulatory disease (5 sources) Arteriovenous fistula, acquired; 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 fistula, acquired] 12-06-2023 Chronic Other connective tissue disease (20 sources) Pain in right foot; Translations: [Pain in right foot] Onset: 2 Episodic Other connective tissue disease (1 source) [...] edema] Onset: 4 Resolved: 4 10-10-2022 Episodic Septicemia (except in labor) (20 sources) Sepsis; Translations: [Sepsis, unspecified organism] 11-21-2023 Episodic Spondylosis; intervertebral disc disorders; other back problems (18 sources) Intervertebral disc disorders with radiculopathy, lumbar [...] foot] Onset: 07-28-2019 Resolved: 11-29-2023 09-30-2023 Chronic Malaise and fatigue (20 sources) Fatigue; Translations: [Other fatigue] Onset: 10-13-2023 Resolved: 02-25-2024 04-29-2020 Episodic Nausea and vomiting (20 sources) Vomiting; Translations: [Vomiting, unspecified] Onset: 10-13-2023 Resolved: 11-29-2023 11-01-2022 Episodic Open wounds of extremities (20 sources) Open wound of left foot; Translations: [Unspecified open wound, left foot, initial encounter] Onset: 05-02-2022 Resolved: 11-29-2023 10-13-2023 Episodic Other aftercare (20 sources) Long-term current use of insulin; Translations: [FCI (current) use of insulin] Onset: 03-02-2023 03-02-2023 Episodic Other aftercare (3 sources) development consultant (current) use of insulin; Translations: [Insulin long-term [...] source) Foot pain Onset: 10-25-2024 Episodic Other connective tissue disease (1 source) Other specified soft tissue disorders; Translations: [Other specified soft tissue disorders] Onset: 01-01-2025 Episodic Other connective tissue disease (1 source) [...] use; Translations: [Tobacco use] Onset: 07-11-2024 Episodic Residual codes; unclassified (1 source) Illness, unspecified; Translations: [Illness, unspecified] Onset: 12-30-2024 Episodic Screening and history of mental health [...] ALT [Catalytic activity/Vol] 16 U/L Normal 7-52 [facility] Comment on above: Performed By: #### C BC, ESR, BMP, CRP #### [address] Albumin [Mass/volume] in Ser um or Plasma by Bromocresol green (BCG) dye binding methoOrdered By: Will Cerna on 03-26-2025 Albumin BCG dye [Mass/Vol] 4.3 g/dL 3.5-5.7 [facility] Alkaline phosphatase [Enzyma tic activity/volume] in Serum or PlasmaOrdered By: Will Cerna on 03-26-2025 ALP [Catalytic activity/Vol] 107 U/L High 34-104 [facility] Comment on above: Performed By: #### C BC, ESR, BMP, CRP #### [address] Aspartate aminotransferase [ Enzymatic activity/volume] in Serum or PlasmaOrdered By: Will Cerna on 03-26-2025 AST [Catalytic activity/Vol] 11 U/L Low 13-39 [facility] Comment on above: Performed By: #### C BC, ESR, BMP, CRP #### [address] Basic Metabolic Panelon 03-07 Creatinine Clr Calc Pharmacy 14.00 Normal [facility] Comment on above: Result Comment: PERF ORMED BY: [place] [address] PATHOLOGIST ENGINEER [employer] KWADWO SMITH M.D. Performed By: #### C BC, ESR, BMP, CRP #### [address] GFR/1.73 sq M.predicted MDRD (S/P/Bld) [Vol rate/Area] 6.133 mL/min/{1.73_m2} Normal [facility] Comment on above: Performed By: #### C BC, ESR, BMP, CRP #### [address] Basophils [#/volume] in Bloo d by Automated countOrdered By: Will Cerna on 03-26-2025 Basophils (Bld) [#/Vol] 0.1 10*3/uL Normal 0.0-0.2 [facility] Comment on above: Result Comment: PERF ORMED BY: [place] [address] PATHOLOGIST ENGINEER [employer] KWADWO SMITH M.D. Performed By: #### C BC, ESR, BMP, CRP #### [facility] [address] Basophils/100 leukocytes in Blood by Automated countOrdered By: Will Cerna on 03-26-2025 Basophils/100 WBC (Bld) 0.9 % Normal . [facility] Comment on above: Performed By: #### C BC, ESR, BMP, CRP #### [facility] [address] Bilirubin.direct [Mass/volum e] in Serum or PlasmaOrdered By: Will Cerna on 03-26-2025 Bilirubin.direct [Mass/Vol] 0.10 mg/dL 0.03-0.18 [facility] Bilirubin.total [Mass/volume ] in Serum or PlasmaOrdered By: Will Cerna on 03-26-2025 Bilirubin [Mass/Vol] 0.4 mg/dL Normal 0.3-1.0 [facility] Comment on above: Performed By: #### C BC, ESR, BMP, CRP #### [facility] [address] Calcium [Mass/volume] in Ser um or PlasmaOrdered By: Will Cerna on 03-26-2025 Calcium [Mass/Vol] 9.9 mg/dL Normal 8.6-10.3 [facility] Comment on above: Performed By: #### C BC, ESR, BMP, CRP #### [facility] [address] Capillary blood glucose shante urement by glucometer (mass/volume)Ordered By: Will Cerna on 03-26-2025 Glucose [Mass/Vol] 115 mg/dL Normal [facility] Comment on above: Random Glucose Refer ence Range is dependent on time and content of last meal. Glucose of more than 200 mg/dL in a nonstressed, ambulatory subject supports the diagnosis of Diabetes Mellitus. Result Comment: [facility] Glucose Reference Range is dependent on time and content of last meal. Glucose of more than 200 mg/dL in a nonstressed, ambulatory subject supports the diagnosis of Diabetes Mellitus. PERFORMED BY: [place] [address] PATHOLOGIST ENGINEER [employer] KWADWO SMITH M.D. Performed By: #### C BC, ESR, BMP, CRP #### [address] Carbon dioxide, total [Moles /volume] in Serum or PlasmaOrdered By: Will Cerna on 03-26-2025 CO2 [Moles/Vol] 24.9 mmol/L Normal 21.0-31.0 [facility] Comment on above: Performed By: #### C BC, ESR, BMP, CRP #### [address] Chloride [Moles/volume] in S james or PlasmaOrdered By: Will Cerna on 03-26-2025 Chloride [Moles/Vol] 102 mmol/L Normal 98-107 [facility] Comment on above: Performed By: #### C BC, ESR, BMP, CRP #### [address] Complete Blood Count Auto Di ffon 03-26-2025 Mean Corpuscular HGB Conc 34.0 g/dL Normal 32.5-35.6 [facility] Comment on above: Performed By: #### C BC, ESR, BMP, CRP #### [address] Monocytes/100 WBC (Bld) 16.12 % Normal 0.00-20.00 [facility] Comment on above: Performed By: #### C BC, ESR, BMP, CRP #### [address] NRBC% 0.0 /100{WBC} Normal 0-0.5 [facility] Comment on above: Performed By: #### C BC, ESR, BMP, CRP #### [address] White Blood Count 10.7 [CFU]/mL High 4.1-10.5 [facility] Comment on above: Performed By: #### C BC, ESR, BMP, CRP #### [facility] [address] [place] [address] Creatinine [Mass/volume] in Serum or PlasmaOrdered By: Will Cerna on 03-26-2025 Creatinine [Mass/Vol] 9.33 mg/dL High 0.70-1.30 [facility] Comment on above: Performed By: #### C BC, ESR, BMP, CRP #### [facility] [address] [place] [address] ECG 12 lead ECGon 03-26-2025 ECG 12 lead ECG [place] [facility] [place] [address] [place] [address] Electrocardiograph Report Signed Patient: Evans Forte MR#: [id number] : 1970 Acct:[id number] Age/Sex: 55 / M ADM Date: 03/26/25 Loc: ER Room: Type: [facility] ER Attending Dr: Ordering Provider: Will Cerna [...] sinus rhythm Confirmed by Chong DIXON DO ([id number]) on 03/26/2025 7:13:58 PM Referred By: Electronically Signed By: Chong DIXON DO Transcribed By: MUS Signed By Chong Dixon DO 0 03/26/251913 Normal [facility] Eosinophils [#/volume] in Bl ood by Automated countOrdered By: Will Cerna on 03-26-2025 Eosinophils (Bld) [#/Vol] 0.4 10*3/uL Normal 0.0-0.45 [facility] Comment on above: Performed By: #### C BC, ESR, BMP, CRP #### [address] Eosinophils/100 leukocytes i n Blood by Automated countOrdered By: Will Cerna on 03-26-2025 Eosinophils/100 WBC (Bld) 3.5 % Normal . [facility] Comment on above: Performed By: #### C BC, ESR, BMP, CRP #### [address] Erythrocyte distribution wid th [Ratio] by Automated countOrdered By: Will Cerna on 03-26-2025 Erythrocyte distribution width (RBC) [Ratio] 14.6 % Normal 12.0-14.8 [facility] Comment on above: Performed By: #### C BC, ESR, BMP, CRP #### [address] Erythrocytes [#/volume] in B lood by Automated countOrdered By: Will Cerna on 03-26-2025 RBC (Bld) [#/Vol] 3.66 10*6/uL Low 3.90-5.[address] [facility] Comment on above: Performed By: #### C BC, ESR, BMP, CRP #### [address] Glucose Poct Glucometerson 0 03-26-2025 Commemt1 Normal [facility] Comment on above: Result Comment: Glu2 : WILL NOTIFY DR/RN PERFORMED BY: [place] [address] PATHOLOGIST ENGINEER [employer] KWADWO SMITH M.D. Performed By: #### C BC, ESR, BMP, CRP #### [address] Glucose [Mass/Vol] 53 mg/dL Off scale low [facility] Comment on above: Result Comment: [place] Glucose Reference Range is dependent on time and content of last meal. Glucose of more than 200 mg/dL in a nonstressed, ambulatory subject supports the diagnosis of Diabetes Mellitus. Performed By: #### C BC, ESR, BMP, CRP #### [address] Commemt1 Normal [facility] Comment on above: Result Comment: Glu2 : WILL NOTIFY DR/RN PERFORMED BY: [place] [address] PATHOLOGIST ENGINEER [employer] KWADWO SMITH M.D. Performed By: #### C BC, ESR, BMP, CRP #### [address] Glucose [Mass/Vol] 53 mg/dL Off scale low [facility] Comment on above: Result Comment: [place] om Glucose Reference Range is dependent on time and content of last meal. Glucose of more than 200 mg/dL in a nonstressed, ambulatory subject supports the diagnosis of Diabetes Mellitus. Performed By: #### C BC, ESR, BMP, CRP #### [address] Glucose [Mass/Vol] 60 mg/dL Off scale low [facility] Comment on above: Result Comment: [place] om Glucose Reference Range is dependent on time and content of last meal. Glucose of more than 200 mg/dL in a nonstressed, ambulatory subject supports the diagnosis of Diabetes Mellitus. PERFORMED BY: [place] [address] PATHOLOGIST ENGINEER [employer] KWADWO SMITH M.D. Performed By: #### C BC, ESR, BMP, CRP #### [address] Glucose [Mass/volume] in Ser um or PlasmaOrdered By: Will Cerna on 03-26-2025 Glucose [Mass/Vol] 46 mg/dL Off scale low 70-100 [facility] Comment on above: Critical Result Call ed to and read back by: VANESSA CHRISTIAN at: 03/26/2025 10:38:19 by:EMILY recommended reference rangeRandom Glucose Reference Range is [...] By: #### C BC, ESR, BMP, CRP #### [facility] [address] Hematocrit [Volume Fraction] of Blood by Automated countOrdered By: Will Cerna on 03-26-2025 Hematocrit (Bld) [Volume fraction] 33.8 % Low 38.8-50.0 [facility] Comment on above: Performed By: #### C BC, ESR, BMP, CRP #### [address] Hemoglobin [Mass/volume] in BloodOrdered By: Will Cerna on 03-26-2025 Hemoglobin (Bld) [Mass/Vol] 11.5 g/dL Low 13.0-17.0 [facility] Comment on above: Performed By: #### C BC, ESR, BMP, CRP #### [address] Hepatic Panelon 03-26-2025 Albumin [Mass/Vol] 4.3 g/dL Normal 3.5-5.7 [facility] Comment on above: Performed By: #### C BC, ESR, BMP, CRP #### [address] Bilirubin,Indirect 0.3 mg/dL Normal [facility] Comment on above: Performed By: #### C BC, ESR, BMP, CRP #### [address] Bilirubin.indirect [Mass/Vol] 0.10 mg/dL Normal 0.03-0.18 [facility] Comment on above: Performed By: #### C BC, ESR, BMP, CRP #### [address] Leukocytes [#/volume] correc scott for nucleated erythrocytes in Blood by Automated counOrdered By: Will Cerna on 03-26-2025 WBC corrected for nucl RBC Auto (Bld) [#/Vol] 10.7 10*3/uL High 4.1-10.5 [facility] Leukocytes [#/volume] in Blo od by Automated countOrdered By: Will Cerna on 03-26-2025 WBC (Bld) [#/Vol] 10.7 10*3/uL High 4.1-10.[address] [facility] Comment on above: Performed By: #### C BC, ESR, BMP, CRP #### [facility] [address] Lymphocytes [#/volume] in Bl ood by Automated countOrdered By: Will Cerna on 03-26-2025 Lymphocytes (Bld) [#/Vol] 2.3 10*3/uL Normal 1.00-4.8 [facility] Comment on above: Performed By: #### C BC, ESR, BMP, CRP #### [facility] [address] [place] [address] Lymphocytes/100 leukocytes i n Blood by Automated countOrdered By: Will Cerna on 03-26-2025 Lymphocytes/100 WBC (Bld) 21.9 % Normal . [facility] Comment on above: Performed By: #### C BC, ESR, BMP, CRP #### [facility] [address] [place] [address] MCH [Entitic mass] by Automa scott countOrdered By: Will Cerna on 03-26-2025 MCH (RBC) [Entitic mass] 31.4 pg Normal 27.5-35.2 [facility] Comment on above: Performed By: #### C BC, ESR, BMP, CRP #### [facility] [address] [place] [address] MCHC Auto (RBC) [Mass/Vol]Or dered By: Will Cerna on 03-26-2025 MCHC (RBC) [Mass/Vol] 34.0 g/dL 32.5-35.6 [facility] MCV [Entitic volume] by Auto mated countOrdered By: Will Cerna on 03-26-2025 MCV (RBC) [Entitic vol] 92.3 fL Normal 83.5-101 [facility] Comment on above: Performed By: #### C BC, ESR, BMP, CRP #### [facility] [address] [place] [address] [place] Monocyte distribution width [Entitic volume] in Blood by AutomatedOrdered By: Will Cerna on 03-26-2025 Monocyte distribution width Auto (Bld) [Entitic vol] 16.12 % 0.00-20.00 [facility] Monocytes [#/volume] in Bloo d by Automated countOrdered By: Will Cerna on 03-26-2025 Monocytes (Bld) [#/Vol] 0.9 10*3/uL High 0.0-0.8 [facility] Comment on above: Performed By: #### C BC, ESR, BMP, CRP #### [place] [address] [place] Monocytes/100 leukocytes in Blood by Automated countOrdered By: Wlil Cerna on 03-26-2025 Monocytes/100 WBC (Bld) 8.3 % Normal . [facility] Comment on above: Performed By: #### C BC, ESR, BMP, CRP #### [address] Neutrophils [#/volume] in Bl ood by Automated countOrdered By: Will Cerna on 03-26-2025 Neutrophils (Bld) [#/Vol] 7.0 10*3/uL Normal 1.8-7.7 [facility] Comment on above: Performed By: #### C BC, ESR, BMP, CRP #### [place] [address] [place] Neutrophils/100 leukocytes i n Blood by Automated countOrdered By: Will Cerna on 03-26-2025 Neutrophils/100 WBC (Bld) 65.4 % Normal . [facility] Comment on above: Performed By: #### C BC, ESR, BMP, CRP #### [address] No Panel InformationOrdered By: Will Cerna on 03-26-2025 Bedside Glucose Comment See comment [facility] Comment on above: Glu2: WILL NOTIFY DR /RN Estimated GFR (CKD-EPI) 6.133 mL/Min [facility] Creatinine Clearance (Chem 14.00 [facility] Nucleated erythrocytes [Pres ence] in Blood by Automated countOrdered By: Will Cerna on 03-26-2025 Nucleated RBC Auto Ql (Bld) 0.0 /100{WBC} 0-0.5 [facility] Platelet mean volume [Entiti c volume] in Blood by Automated countOrdered By: Will Cerna on 03-26-2025 Platelet mean volume (Bld) [Entitic vol] 7.6 fL Normal 6.6-10.1 [facility] Comment on above: Performed By: #### C BC, ESR, BMP, CRP #### [facility] [address] [place] [address] [place] Platelets [#/volume] in Bloo d by Automated countOrdered By: Will Cerna on 03-26-2025 Platelets (Bld) [#/Vol] 255 10*3/uL Normal 150-450 [facility] Comment on above: Performed By: #### C BC, ESR, BMP, CRP #### [facility] [address] [place] [address] [place] Potassium [Moles/volume] in Serum or PlasmaOrdered By: Will Cerna on 03-26-2025 Potassium [Moles/Vol] 4.8 mmol/L Normal 3.5-5.1 [facility] Comment on above: Performed By: #### C BC, ESR, BMP, CRP #### [facility] [address] [place] [address] [place] Protein [Mass/volume] in Ser um or PlasmaOrdered By: Will Cerna on 03-26-2025 Protein [Mass/Vol] 8.0 g/dL Normal 6.4-8.9 [facility] Comment on above: Performed By: #### C BC, ESR, BMP, CRP #### [facility] [address] [place] [address] Serum globulin measurement b y calculation (mass/volume)Ordered By: Will Cerna on 03-26-2025 Globulin (S) [Mass/Vol] 3.7 g/dL [facility] Comment on above: Performed By: #### C BC, ESR, BMP, CRP #### [facility] [address] [place] [address] Serum or plasma albumin/glob ulin mass ratioOrdered By: Will Cerna on 03-26-2025 Albumin/Globulin [Mass ratio] 1.2 {ratio} [facility] Comment on above: Performed By: #### C BC, ESR, BMP, CRP #### [address] Serum or plasma anion gap de terminationOrdered By: Will Cerna on 03-26-2025 Anion gap [Moles/Vol] 15.9 mmol/L High 6.0-15.0 [facility] Comment on above: Performed By: #### C BC, ESR, BMP, CRP #### [address] Serum or plasma non-glucuron idated bilirubin measurement (mass/volume)Ordered By: Will Cerna on 03-26-2025 Bilirubin.indirect [Mass/Vol] 0.3 mg/dL [facility] Sodium [Moles/volume] in Ser um or PlasmaOrdered By: Will Cerna on 03-26-2025 Sodium [Moles/Vol] 138 mmol/L Normal 136-145 [facility] Comment on above: Performed By: #### C BC, ESR, BMP, CRP #### [facility] [address] [place] [address] Urea nitrogen [Mass/volume] in Serum or PlasmaOrdered By: Will Cerna on 03-26-2025 Urea nitrogen [Mass/Vol] 85 mg/dL High 7-25 [facility] Comment on above: Performed By: #### C BC, ESR, BMP, CRP #### [address] Laboratory - Drug toxicology Ordered By: Jey Ramos on 02-13-2025 Amphetamines Ql (U) Negative [facility] Benzodiazepines Ql (U) Positive [facility] Cocaine Ql (U) Negative [facility] Opiates Ql (U) Negative [facility] Phencyclidine Ql (U) Negative [facility] No Panel InformationOrdered By: Jey Ramos on 02-13-2025 Urine Barbiturates Screen Negative [facility] Urine Marijuana (THC) Screen Positive [facility] ED Note-Physicianon 02-04-20 ED Note-Physician ED Note-Physician [...] for 3 day(s), 12 tab(s), Refill(s) 0, [id number], 187, cm, 02/02/25 18:12:00 EDT, Height/Length Dosing, [...] days 02/05/[address]T [address], [facility] [address] [place] [address]- [facility] (1) Additional Instructions: Call Dr for diagnosis based follow up Patient Education Peripheral Neuropathy Acute Pain, Adult Neuropathic Pain Attestation Patient seen and evaluated by the physician medical staff assistant. Attending physician was present in the emergency department and supervised care. This visit was performed by both the physician and an APC. I performed all aspects of the MDM as documented. This report was transcribed using voice recognition software. Every effort was made to ensure accuracy, however, inadvertently computerized electronic equipment repairmen mistakes may be present. Appropriate healthcare PPE [...] Use, 01/06 (more content not included)... Normal [facility] Comment on above: Result Comment: Elec tronically Signed By: Star aSucedo PA-C\.br\Date and Time Signed: 02/02/25 18:41 EDT\.br\Electronically Co-Signed By: Delano Benavides DO\.br\Date and Time Co-Signed: 02/03/25 06:04 EDT Basic Metabolic Panelon 01-06 Est, Glom Filt Rate 9 Low - [facility] Comment on above: These results are not [...] Interpretation and review of laboratory results Abnormal [facility] Urea nitrogen/Creatinine [Mass ratio] 10 mg/mg 9 - 20 [facility] Basic Metabolic Profon 02-02 Anion gap [Moles/Vol] 16 mmol/L Normal 9-16 [facility] Comment on above: Performed By: #### B #### [facility] [address] [place], [place] [id number] Counseling Department Chair: Meredith Nolen MD Calcium [Mass/Vol] 9.3 mg/dL Normal 8.6-10.4 [facility] Comment on above: Performed By: #### B MP #### [address] [place], [place] [id number] Counseling Department Chair: Meredith Nolen MD Chloride [Moles/Vol] 98 mmol/L Normal 98-107 [facility] Comment on above: Performed By: #### B MP #### [address] [place], [place] [phone] Counseling Department Chair: Meredith Nolen MD CO2 [Moles/Vol] 23 mmol/L Normal 20-31 [facility] Comment on above: Performed By: #### B MP #### [address] [place] [id number] Counseling Department Chair: Meredith Nolen MD Creatinine [Mass/Vol] 7.0 mg/dL Critically high 0.70-1.20 [facility] Comment on above: Performed By: #### B MP #### [address] [place], [place] [phone] Counseling Department Chair: Meredith Nolen MD Glucose [Mass/Vol] 296 mg/dL High 74-99 [facility] Comment on above: Performed By: #### B MP #### [address] [place], [facility] Counseling Department Chair: Meredith Nolen MD Potassium [Moles/Vol] 6.1 mmol/L Critically high 3.7-5.3 [facility] Comment on above: Specimen hemolysis h as exceeded the interference as defined by Yaima. Value may be falsely increased. Suggest recollection if clinically indicated. Result Comment: Spec imen hemolysis has exceeded the interference as defined by Yaima. Value may be falsely increased. Suggest recollection if clinically indicated. Performed By: #### B MP #### [address] [place], [place] [address]83 Counseling Department Chair: Meredith Nolen MD Sodium [Moles/Vol] 137 mmol/L Normal 136-145 [facility] Comment on above: Performed By: #### B MP #### [facility] [address] [place], [place] [id number] Counseling Department Chair: Meredith Nolen MD Urea nitrogen [Mass/Vol] 69 mg/dL High 6-20 [facility] Comment on above: Performed By: #### B MP #### [facility] [address] [place] [address] Counseling Department Chair: Meredith Nolen MD BUN/CRE Ratio 10 Normal 9-20 [facility] Comment on above: Performed By: #### B MP #### [facility] [address] [place] [address] Counseling Department Chair: Meredith Nolen MD GFR/1.73 sq M.predicted among non-blacks MDRD (S/P/Bld) [Vol rate/Area] 9 mL/min/{1.73_m2} Low >60 [facility] Comment on above: Result Comment: [...] secretion. Performed By: #### B MP #### [facility] [address] [place] [address] Counseling Department Chair: Meredith Nolen MD CBC with Auto Differentialon 02-02-2025 Basophils (Bld) [#/Vol] 0.04 10*3/uL [facility] Basophils/100 WBC (Bld) 0 % 0 - 2 % [facility] Eosinophils (Bld) [#/Vol] 0.35 10*3/uL [facility] Eosinophils/100 WBC (Bld) 3 % 1 - 4 % [facility] Erythrocyte distribution width (RBC) [Ratio] 14.6 % High 11.8 - 14.4 % [facility] Hematocrit (Bld) [Volume fraction] 31.8 % Low 40.7 - 50.3 % [facility] Hemoglobin (Bld) [Mass/Vol] 10.4 g/dL Low 13.0 - 17.0 g/dL [facility] Immature granulocytes (Bld) [#/Vol] 0.13 10*3/uL [facility] Immature granulocytes/100 WBC (Bld) 1 % High 0 [facility] Interpretation and review of laboratory results Abnormal [facility] Lymphocytes/100 WBC (Bld) 13 % Low 24 - 43 % [facility] Lymphocytes/100 WBC (Bld) 1.35 % [facility] MCH (RBC) [Entitic mass] 31.3 pg 25.2 - 33.5 pg [facility] MCHC (RBC) [Mass/Vol] 32.7 g/dL 28.4 - 34.8 g/dL [facility] MCV (RBC) [Entitic vol] 95.8 fL 82.6 - 102.9 fL [facility] Monocytes/100 WBC (Bld) 7 % 3 - 12 % [facility] Monocytes/100 WBC (Bld) 0.76 % [facility] Neutrophils/100 WBC (Bld) 76 % High 36 - 65 % [facility] Nucleated RBC/100 WBC (Bld) [Ratio] 0 % 0.0 per 100 WBC [facility] Platelet mean volume (Bld) [Entitic vol] 10.1 fL 8.1 - 13.5 fL [facility] Platelets (Bld) [#/Vol] 208 10*3/uL [facility] RBC (Bld) [#/Vol] 3.32 10*6/uL Low 4.21 - 5.7 7 m/uL [facility] Segmented neutrophils/100 WBC (Bld) 7.75 % [facility] WBC other (Bld) [#/Vol] 10.4 [facility] CBC with Diffon 02-02-2025 Abs. Basophil 0.04 k/uL Normal 0.00-0.20 [facility] Comment on above: Performed By: #### C DP, REJEC #### [facility] [address] [place] [address] [place] [address] Counseling Department Chair: Meredith Nolen MD Abs.Imm.Granulocyte 0.13 k/uL Normal 0.00-0.30 [facility] Comment on above: Performed By: #### C DP, REJEC #### [address] [place] [address] Counseling Department Chair: Meredith Nolen MD Abs.Neutrophil (Seg) 7.75 k/uL Normal 1.50-8.10 [facility] Comment on above: Performed By: #### C DP, REJEC #### [address] [place], [place] [address] Counseling Department Chair: Meredith Nolen MD Basophils/100 WBC (Bld) 0 % Normal 0-2 [facility] Comment on above: Performed By: #### C DP, REJEC #### [address] [place] [address] Counseling Department Chair: Meredith Nolen MD Eosinophils (Bld) [#/Vol] 0.35 10*3/uL Normal 0.00-0.44 [facility] Comment on above: Performed By: #### C DP, REJEC #### [facility] [address] [place] [address] [place] [place], [place] [address] Counseling Department Chair: Meredith Nolen MD Eosinophils/100 WBC (Bld) 3 % Normal 1-4 [facility] Comment on above: Performed By: #### C DP, REJEC #### [facility] [address] [place], [place] [phone] Counseling Department Chair: Meredith Nolen MD Erythrocyte distribution width (RBC) [Ratio] 14.6 % High 11.8-14.4 [facility] Comment on above: Performed By: #### C DP, REJEC #### [address] [place] [address] Counseling Department Chair: Meredith Nolen MD Hematocrit (Bld) [Volume fraction] 31.8 % Low 40.7-50.3 [facility] Comment on above: Performed By: #### C DP, REJEC #### [address] [place], [place] [phone] Counseling Department Chair: Meredith Nolen MD Hemoglobin (Bld) [Mass/Vol] 10.4 g/dL Low 13.0-17.0 [facility] Comment on above: Performed By: #### C DP, REJEC #### [address] [place], [place] [address] Counseling Department Chair: Meredith Nolen MD Immature granulocytes/100 WBC (Bld) 1 % High 0 [facility] Comment on above: Performed By: #### C DP, REJEC #### [address] [place], [facility] Counseling Department Chair: Meredith Nolen MD Lymphocytes (Bld) [#/Vol] 1.35 10*3/uL Normal 1.10-3.70 [facility] Comment on above: Performed By: #### C DP, REJEC #### [address] [place], [facility] Counseling Department Chair: Meredith Nolen MD Lymphocytes/100 WBC (Bld) 13 % Low 24-43 [facility] Comment on above: Performed By: #### C DP, REJEC #### [address] [place] [address] Counseling Department Chair: Meredith Nolen MD MCH (RBC) [Entitic mass] 31.3 pg Normal 25.2-33.5 [facility] Comment on above: Performed By: #### C DP, REJEC #### [address] [place], [place] [address] Counseling Department Chair: Meredith Nolen MD MCHC (RBC) [Mass/Vol] 32.7 g/dL Normal 28.4-34.8 [facility] Comment on above: Performed By: #### C DP, REJEC #### [address] [place], [place] [address] Counseling Department Chair: Meredith Nolen MD MCV (RBC) [Entitic vol] 95.8 fL Normal 82.6-102.9 [facility] Comment on above: Performed By: #### C DP, REJEC #### [address] [place], [place] [address] Counseling Department Chair: Meredith Nolen MD Monocytes (Bld) [#/Vol] 0.76 10*3/uL Normal 0.10-1.20 [facility] Comment on above: Performed By: #### C DP, REJEC #### [address] [place], [place] [address] Counseling Department Chair: Meredith Nolen MD Monocytes/100 WBC (Bld) 7 % Normal 3-12 [facility] Comment on above: Performed By: #### C DP, REJEC #### [address] [place], [place] [address] Counseling Department Chair: Meredith Nolen MD Neutrophil (Seg) 76 % High 36-65 [facility] Comment on above: Performed By: #### C DP, REJEC #### [address] [place], [facility] Counseling Department Chair: Meredith Nolen MD NRBC Automated 0.0 per 100 WBC Normal 0.0 [facility] Comment on above: Performed By: #### C DP, REJEC #### [address] [place], [place] [id number] Counseling Department Chair: Meredith Nolen MD Platelet mean volume (Bld) [Entitic vol] 10.1 fL Normal 8.1-13.5 [facility] Comment on above: Performed By: #### C DP, REJEC #### [address] [place], [place] 1434683 Counseling Department Chair: Meredith Nolen MD Platelets (Bld) [#/Vol] 208 10*3/uL Normal 138-453 [facility] Comment on above: Performed By: #### C DP, REJEC #### [address] [place], [place] 4274183 Counseling Department Chair: Meredith Nolen MD RBC (Bld) [#/Vol] 3.32 10*6/uL Low 4.21-5.77 [facility] Comment on above: Performed By: #### C DP, REJEC #### [address] [place], [place] [id number] Counseling Department Chair: Meredith Nolen MD WBC (Bld) [#/Vol] 10.4 10*3/uL Normal 3.5-11.3 [facility] Comment on above: Performed By: #### C DP, REJEC #### [address] [place], [place] [phone] Counseling Department Chair: Meredith Nolen MD ED Clinical Summaryon 2024 ED Clinical Summary ED Clinical Summary [address] [address] ED Clinical Summary Person Information Name: JANNEVANS Hook Jr [facility] Age: 55 Years : 1970 Sex: Male Language: Bahamian PCP: IDANIA RICKETTS DO Marital Status: Visit [...] 02/02/2025 18:32:45 02/02/2025 18:32:45 ADDRESS: [address] [place] [id number] PHYS DOC NOTES: MEDICAL INFORMATION: Prescriptions Given: New Medications [id number], [address], [place] [id number], [phone] acetaminophen-oxycodone (acetaminophen-oxycodon e 325 mg-5 mg Tab) 1 Tablets By Mouth every 6 hours as needed for pain for 3 Days. Refills: 0. PATIENT EDUCATION INFORMATION: Instructions: Peripheral Neuropathy; Acute Pain, Adult; Neuropathic Pain Follow up: With: Address: When: IDANIA RICKETTS [address], [address] [place] [address] Splurgy (1) In 3 days 02/05/2025 Comments: Call Dr for diagnosis based follow up DIAGNOSIS: Neuropathic pain Normal [facility] ED Patient Summaryon 025 ED Patient Summary ED Patient Summary [address] [address] Patient Discharge Instructions Person Information Name: EVANS FORTE Jr Age: 55 Years Arrival Date: 02/02/2025 18:02:34 Discharge Diagnosis: Neuropathic pain Primary Care Physician: IDANIA RICKETTS DO Provider Information Primary Provider: Delano Benavides DO [employer] Maker:Star Saucedo PA-C The exam and treatment you received in the Emergency Department were for an urgent problem and are not intended as complete care. It is important that you follow up with a doctor, nurse practitioner, or physician???s medical staff assistant for ongoing care. If your symptoms [...] With: Address: When: IDANIA RICKETTS [address], [address] [place] [address] Spl[place]y (6) In 3 days 02/05/2025 Comments: Call Dr [...] opioids can be used to help relieve mvquepco-ee-wutpaa pain and are often prescribed following a [...] and over (more content not included)... Normal [facility] Specimen Rejectionon 025 Reason for rejection Unable to perform testing: Specimen hemolyzed. [facility] Comment on above: Performed By: #### C DP, REJEC #### [facility] [address] [place] [address] Counseling Department Chair: Meredith Nolen MD Source of sample .BLOOD Normal [facility] Comment on above: Performed By: #### C DP, REJEC #### [facility] [address] [place] [address] Counseling Department Chair: Meredith Nolen MD Test ordered BMP [facility] Comment on above: Performed By: #### C DP, REJEC #### [facility] [address] [place] [address] Counseling Department Chair: Meredith Nolen MD XR FOOT RIGHT (MIN [...] Tami Concepcion MD 02/02/25 Final result Normal [facility] XR Foot - right 3 Viewson 1. Soft tissue ulceration along the plantar aspect of the posterior heel. 2. No radiographic evidence of acute osteomyelitis. [facility] EXAMINATION: THREE XRAY VIEWS OF [...] posterior heel. No evidence of osseous erosions. [facility] Tami Concepcion MD - 02/02/2025 [...] 2. No radiographic evidence of acute osteomyelitis. [facility] Radiology Study observation (narrative) [facility] XR Foot - right 3 ViewsOrder ed By: Tami Jamey on 02-02-2025 [facility] 36on 01-15-2025 36 Contacted patient regarding pamela fordHimanshu LVM to contact clinic. [facility] 36on 01-02-2025 36 Please advise on nex t step. Medicare will not cover Nucynta for his diagnosis. [facility] 36 Patient asking if he can get some pain meds ordered since his SCS trial today was canceled due to not being approved. Nucynta was not approved by his insurance. Patient aware we will contact him after hearing back from provider. Thanks [facility] Orders Onlyon 01-02-2025 Orders Only [id number] Evans Forte 1970 M Date Provider Department Center 01/02/[address] [facility] Family History Problem Relation Age [...] Sister Maternal Grandmother Daughter Father's Brother Alive [facility] Telephoneon 01-02-2025 Telephone [phone] Evans Forte 1970 M Date Provider Department Center 01/02/2025 LEIF BEAR PAIN [facility] Family History Problem Relation Age [...] Sister Maternal Grandmother Daughter Father's Brother [facility] Alanine aminotransferase [En zymatic activity/volume] in Serum or PlasmaOrdered By: Ivana Salcedo on 01-01-2025 ALT [Catalytic activity/Vol] Alanine aminotransferase [Enzymatic activity/volume] in Serum or Plasma 7-52 [facility] ALT [Catalytic activity/Vol] 28 U/L Normal -52 [facility] Comment on above: Performed By: #### C BC, ESR, BMP, CRP #### [facility] [address] [place] [address] Albumin [Mass/volume] in Ser um or Plasma by Bromocresol green (BCG) dye binding methoOrdered By: Ivana Salcedo on 01-01-2025 Albumin BCG dye [Mass/Vol] Albumin [Mass/volume] in Serum or Plasma by Bromocresol green (BCG) dye binding metho 3.5-5.7 [facility] Albumin BCG dye [Mass/Vol] 4.4 g/dL 3.5-5.7 [facility] Alkaline phosphatase [Enzyma tic activity/volume] in Serum or PlasmaOrdered By: Ivana Salcedo on 01-01-2025 ALP [Catalytic activity/Vol] Alkaline phosphatase [Enzymatic activity/volume] in Serum or Plasma 34-104 [facility] ALP [Catalytic activity/Vol] 88 U/L Normal 34-104 [facility] Comment on above: Performed By: #### C BC, ESR, BMP, CRP #### [facility] [address] [place] [address] Aspartate aminotransferase [ Enzymatic activity/volume] in Serum or PlasmaOrdered By: Ivana Salcedo on 01-01-2025 AST [Catalytic activity/Vol] Aspartate aminotransferase [Enzymatic activity/volume] in Serum or Plasma Low 13-39 [facility] AST [Catalytic activity/Vol] 10 U/L Low 13-39 [facility] Comment on above: Performed By: #### C BC, ESR, BMP, CRP #### [facility] [address] [place] [address] Basophils Auto (Bld) [#/Vol] Ordered By: Ivana Salcedo on 01-01-2025 Basophils (Bld) [#/Vol] Automated basophil count 0.0-0.2 [facility] Basophils [#/volume] in Bloo d by Automated countOrdered By: Ivana Salcedo on 01-01-2025 Basophils (Bld) [#/Vol] 0.1 10*3/uL Normal 0.0-0.2 [facility] Comment on above: Result Comment: PERF ORMED BY: [place] [address] PATHOLOGIST ENGINEER [employer] KIM ELLIOTT M.D. Performed By: #### C BC, ESR, BMP, CRP #### [facility] [address] [place] [address] Basophils/100 WBC Auto (Bld) Ordered By: Ivana Salcedo on 01-01-2025 Basophils/100 WBC (Bld) Automated basophil % . [facility] Basophils/100 leukocytes in Blood by Automated countOrdered By: Ivana Salcedo on 01-01-2025 Basophils/100 WBC (Bld) 0.8 % Normal . [facility] Comment on above: Performed By: #### C BC, ESR, BMP, CRP #### [facility] [address] [place] [address] Bilirubin.total [Mass/volume ] in Serum or PlasmaOrdered By: Ivana Salcedo on 01-01-2025 Bilirubin [Mass/Vol] Bilirubin.total [Mass/volume] in Serum or Plasma 0.3-1.0 [facility] Bilirubin [Mass/Vol] 0.5 mg/dL Normal 0.3-1.0 [facility] Comment on above: Performed By: #### C BC, ESR, BMP, CRP #### [facility] [address] [place] [address] [place] COVID Cepheid NegativeOrdere d By: Ivana Salcedo on 01-01-2025 SARS-CoV-2 (COVID-19) Ab IA Ql COVID Cepheid Negative [facility] Comment on above: This is a duplicate Cepheid Xpert Xpress CoV-2/Flu/RSV Plus RNA by RT-PCR result to be used for statistical tracking purpose only. SARS-CoV-2 (COVID-19) Ab IA Ql Negative Negative [facility] Comment on above: This is a duplicate [...] or Cepheid Disclaimer revoked sooner. PERFORMED BY: [place] [address] PATHOLOGIST ENGINEER [employer] KIM ELLIOTT M.D. Normal [facility] Comment on above: Performed By: #### C BC, ESR, BMP, CRP #### [place] [id number] [facility] Calcium [Mass/volume] in Ser um or PlasmaOrdered By: Ivana Salcedo on 01-01-2025 Calcium [Mass/Vol] Calcium [Mass/volume ] in Serum or Plasma 8.6-10.3 [facility] Calcium [Mass/Vol] 9.2 mg/dL Normal 8.6-10.3 [facility] Comment on above: Performed By: #### C BC, ESR, BMP, CRP #### [address] Carbon dioxide, total [Moles /volume] in Serum or PlasmaOrdered By: Ivana Salcedo on 01-01-2025 CO2 [Moles/Vol] Carbon dioxide, tota l [Moles/volume] in Serum or Plasma 21.0-31.0 [facility] CO2 [Moles/Vol] 27.1 mmol/L Normal 21.0-31.0 [facility] Comment on above: Performed By: #### C BC, ESR, BMP, CRP #### [address] Cepheid COVID PCR Negativeon 01-01-2025 SARS-CoV-2 (COVID-19) RNA SHAY+probe Ql (Unsp spec) Negative Normal Negative [facility] Comment on above: Result Comment: This is a duplicate Cepheid Xpert Xpress CoV-2/Flu/RSV Plus RNA by RT-PCR result to be used for statistical tracking purpose only. PERFORMED BY: [place] [id number] PATHOLOGIST ENGINEER [employer] KIM ELLIOTT M.D. Performed By: #### C BC, ESR, BMP, CRP #### [place] [id number] [place] Chloride [Moles/volume] in S james or PlasmaOrdered By: Ivana Salcedo on 01-01-2025 Chloride [Moles/Vol] Chloride [Moles/vol ume] in Serum or Plasma 98-107 [facility] Chloride [Moles/Vol] 99 mmol/L Normal 98-107 [facility] Comment on above: Performed By: #### C BC, ESR, BMP, CRP #### [address] Complete Blood Count Auto Di ffon 01-01-2025 Mean Corpuscular HGB Conc 34.3 g/dL Normal 32.5-35.6 [facility] Comment on above: Performed By: #### C BC, ESR, BMP, CRP #### [address] Monocytes/100 WBC (Bld) 16.78 % Normal 0.00-20.00 [facility] Comment on above: Performed By: #### C BC, ESR, BMP, CRP #### [address] NRBC% 0.0 /100{WBC} Normal 0-0.5 [facility] Comment on above: Performed By: #### C BC, ESR, BMP, CRP #### [address] Comprehensive Metabolic Pane nick 01-01-2025 Albumin [Mass/Vol] 4.4 g/dL Normal 3.5-5.7 [facility] Comment on above: Performed By: #### C BC, ESR, BMP, CRP #### [address] Creatinine Clr Calc Pharmacy 20.53 Normal [facility] Comment on above: Result Comment: PERF ORMED BY: [place] [address] PATHOLOGIST ENGINEER [employer] KIM ELLIOTT M.D. Performed By: #### C BC, ESR, BMP, CRP #### [address] Estimated GFR 9.886 mL/Min Normal [facility] Comment on above: Performed By: #### C BC, ESR, BMP, CRP #### [address] Creatinine [Mass/volume] in Serum or PlasmaOrdered By: Ivana Salcedo on 01-01-2025 Creatinine [Mass/Vol] Creatinine [Mass/volume] in Serum or Plasma High 0.70-1.30 [facility] Creatinine [Mass/Vol] 6.30 mg/dL High 0.70-1.30 [facility] Comment on above: Performed By: #### C BC, ESR, BMP, CRP #### [address] D-Dimer High Sensitivityon 0 01-01-2025 D-Dimer High Sensitivity <200 Normal 0-243 [facility] Comment on above: [...] coagulation studies. Please contact the laboratory at [phone] for redraw instructions. PERFORMED BY: [place] [address] PATHOLOGIST ENGINEER [employer] KIM ELLIOTT M.D. Performed By: #### C BC, ESR, BMP, CRP #### [address] ECG 12 lead ECGon 01-01-2025 ECG 12 lead ECG [place] [facility] [place] [address] [place] [address] Electrocardiograph Report Signed Patient: Evans Forte MR#: [id number] : 1970 Acct:[id number] Age/Sex: 54 / M ADM Date: 01/01/25 Loc: ER Room: Type: [facility] ER Attending Dr: Ordering Provider: Ivana Salcedo [...] inversion avl Confirmed by Jessica Al MD ([id number]) on 01/02/2025 7:26:58 AM Referred By: Electronically Signed By: Jessica Al MD Transcribed By: MUS Signed By Jessica Al MD 12/06 05/31 07 Normal [facility] Eosinophils Auto (Bld) [#/Vo l]Ordered By: Ivana Salcedo on 01-01-2025 Eosinophils (Bld) [#/Vol] Automated eosinophil count 0.0-0.45 [facility] Eosinophils [#/volume] in Bl ood by Automated countOrdered By: Ivana Salcedo on 01-01-2025 Eosinophils (Bld) [#/Vol] 0.2 10*3/uL Normal 0.0-0.45 [facility] Comment on above: Performed By: #### C BC, ESR, BMP, CRP #### [place] [address] [place] Eosinophils/100 WBC Auto (Bl d)Ordered By: Ivana Salcedo on 01-01-2025 Eosinophils/100 WBC (Bld) Automated eosinophil % . [facility] Eosinophils/100 leukocytes i n Blood by Automated countOrdered By: Ivana Salcedo on 01-01-2025 Eosinophils/100 WBC (Bld) 2.1 % Normal . [facility] Comment on above: Performed By: #### C BC, ESR, BMP, CRP #### [facility] [address] Erythrocyte distribution wid th Auto (RBC) [Ratio]Ordered By: Ivana Salcedo on 01-01-2025 Erythrocyte distribution width (RBC) [Ratio] Erythrocyte distribution width [Ratio] by Automated count High 12.0-14.8 [facility] Erythrocyte distribution wid th [Ratio] by Automated countOrdered By: Ivana Salcedo on 01-01-2025 Erythrocyte distribution width (RBC) [Ratio] 15.7 % High 12.0-14.8 [facility] Comment on above: Performed By: #### C BC, ESR, BMP, CRP #### [facility] [address] Erythrocytes [#/volume] in B lood by Automated countOrdered By: Ivana Salcedo on 01-01-2025 RBC (Bld) [#/Vol] 3.84 10*6/uL Low 3.90-5.[address] [facility] Comment on above: Performed By: #### C BC, ESR, BMP, CRP #### [facility] [address] Fibrin D-dimer [Presence] in Platelet poor plasma by Latex agglutinationOrdered By: Ivana Salcedo on 01-01-2025 Fibrin D-dimer LA Ql (PPP) Fibrin D-dimer [Presence] in Platelet poor plasma by Latex agglutination 0-243 [facility] Comment on above: The reference range for [...] coagulation studies. Please contact the laboratory at [phone] for redraw instructions. Fibrin D-dimer LA Ql (PPP) < 200 ng/mL 0-243 [facility] Comment on above: The reference range for [...] coagulation studies. Please contact the laboratory at [phone] for redraw instructions. Globulin Calc (S) [Mass/Vol] Ordered By: Ivana Salcedo on 01-01-2025 Globulin (S) [Mass/Vol] Serum globulin measurement by calculation (mass/volume) [facility] Glucose [Mass/volume] in Ser um or PlasmaOrdered By: Ivana Salcedo on 01-01-2025 Glucose [Mass/Vol] Glucose [Mass/volume ] in Serum or Plasma High 70-100 [facility] Comment on above: ADA recommended refe rence rangeRandom Glucose Reference Range is dependent on time and content of last meal. Glucose of more than 200 mg/dL in a nonstressed, ambulatory subject supports the diagnosis of Diabetes Mellitus. Glucose [Mass/Vol] 185 mg/dL High 70-100 [facility] Comment on above: ADA recommended refe rence rangeRandom Glucose Reference Range is dependent on time and content of last meal. Glucose of more than 200 mg/dL in a nonstressed, ambulatory subject supports the diagnosis of Diabetes Mellitus. Result Comment: [place] om Glucose Reference Range is dependent on time and content of last meal. Glucose of more than 200 mg/dL in a nonstressed, ambulatory subject supports the diagnosis of Diabetes Mellitus. ADA recommended reference range Performed By: #### C BC, ESR, BMP, CRP #### [facility] [address] [place] [address] Hematocrit Auto (Bld) [Volum e fraction]Ordered By: Ivana Salcedo on 01-01-2025 Hematocrit (Bld) [Volume fraction] Hematocrit [Volume Fraction] of Blood by Automated count Low 38.8-50.0 [facility] Hematocrit [Volume Fraction] of Blood by Automated countOrdered By: Ivana Salcedo on 01-01-2025 Hematocrit (Bld) [Volume fraction] 35.0 % Low 38.8-50.0 [facility] Comment on above: Performed By: #### C BC, ESR, BMP, CRP #### [address] Hemoglobin [Mass/volume] in BloodOrdered By: Ivana Salcedo on 01-01-2025 Hemoglobin (Bld) [Mass/Vol] Hemoglobin [Mass/volume] in Blood Low 13.0-17.0 [facility] Hemoglobin (Bld) [Mass/Vol] 12.0 g/dL Low 13.0-17.0 [facility] Comment on above: Performed By: #### C BC, ESR, BMP, CRP #### [facility] [address] [place] [address] Leukocytes [#/volume] correc scott for nucleated erythrocytes in Blood by Automated counOrdered By: Ivana Salcedo on 01-01-2025 WBC corrected for nucl RBC Auto (Bld) [#/Vol] Leukocytes [#/volume] corrected for nucleated erythrocytes in Blood by Automated coun 4.1-10.5 [facility] WBC corrected for nucl RBC Auto (Bld) [#/Vol] 9.3 10*3/uL 4.1-10.5 [facility] Leukocytes [#/volume] in Blo od by Automated countOrdered By: Ivana Salcedo on 01-01-2025 WBC (Bld) [#/Vol] 9.3 10*3/uL Normal 4.1-10.5 [facility] Comment on above: Performed By: #### C BC, ESR, BMP, CRP #### [address] [place] [address] [place] Lymphocytes Auto (Bld) [#/Vo l]Ordered By: Ivana Salcedo on 01-01-2025 Lymphocytes (Bld) [#/Vol] Lymphocytes [#/volume] in Blood by Automated count 1.00-4.8 [facility] Lymphocytes [#/volume] in Bl ood by Automated countOrdered By: Ivana Slacedo on 01-01-2025 Lymphocytes (Bld) [#/Vol] 1.4 10*3/uL Normal 1.00-4.8 [facility] Comment on above: Performed By: #### C BC, ESR, BMP, CRP #### [facility] [address] [place] [address] Lymphocytes/100 WBC Auto (Bl d)Ordered By: Ivana Salcedo on 01-01-2025 Lymphocytes/100 WBC (Bld) Lymphocytes/100 leukocytes in Blood by Automated count . [facility] Lymphocytes/100 leukocytes i n Blood by Automated countOrdered By: Ivana Salcedo on 01-01-2025 Lymphocytes/100 WBC (Bld) 14.7 % Normal . [facility] Comment on above: Performed By: #### C BC, ESR, BMP, CRP #### [address] MCH Auto (RBC) [Entitic mass ]Ordered By: Ivana Salcedo on 01-01-2025 MCH (RBC) [Entitic mass] MCH [Entitic mass] by Automated count 27.5-35.2 [facility] MCH [Entitic mass] by Automa scott countOrdered By: Ivana Salcedo on 01-01-2025 MCH (RBC) [Entitic mass] 31.3 pg Normal 27.5-35.2 [facility] Comment on above: Performed By: #### C BC, ESR, BMP, CRP #### [address] MCHC Auto (RBC) [Mass/Vol]Or dered By: Ivana Salcedo on 01-01-2025 MCHC (RBC) [Mass/Vol] MCHC [Mass/volume] by Automated count 32.5-35.6 [facility] MCHC (RBC) [Mass/Vol] 34.3 g/dL 32.5-35.6 [facility] MCV Auto (RBC) [Entitic vol] Ordered By: Ivana Salcedo on 01-01-2025 MCV (RBC) [Entitic vol] MCV [Entitic volume] by Automated count 83.5-101 [facility] MCV [Entitic volume] by Auto mated countOrdered By: Ivana Salcedo on 01-01-2025 MCV (RBC) [Entitic vol] 91.2 fL Normal 83.5-101 [facility] Comment on above: Performed By: #### C BC, ESR, BMP, CRP #### [facility] [address] Monocyte distribution width [Entitic volume] in Blood by AutomatedOrdered By: Ivana Salcedo on 01-01-2025 Monocyte distribution width Auto (Bld) [Entitic vol] Monocyte distribution width [Entitic volume] in Blood by Automated 0.00-20.00 [facility] Monocyte distribution width Auto (Bld) [Entitic vol] 16.78 % 0.00-20.00 [facility] Monocytes Auto (Bld) [#/Vol] Ordered By: Ivana Salcedo on 01-01-2025 Monocytes (Bld) [#/Vol] Automated blood monocyte count 0.0-0.8 [facility] Monocytes [#/volume] in Bloo d by Automated countOrdered By: Ivana Salcedo on 01-01-2025 Monocytes (Bld) [#/Vol] 0.8 10*3/uL Normal 0.0-0.8 [facility] Comment on above: Performed By: #### C BC, ESR, BMP, CRP #### [facility] [address] [place] [address] [place] Monocytes/100 WBC Auto (Bld) Ordered By: Ivana Salcedo on 01-01-2025 Monocytes/100 WBC (Bld) Automated monocyte % . [facility] Monocytes/100 leukocytes in Blood by Automated countOrdered By: Ivana Salcedo on 01-01-2025 Monocytes/100 WBC (Bld) 8.8 % Normal . [facility] Comment on above: Performed By: #### C BC, ESR, BMP, CRP #### [facility] [address] [place] [address] Neutrophils Auto (Bld) [#/Vo l]Ordered By: Ivana Salcedo on 01-01-2025 Neutrophils (Bld) [#/Vol] Neutrophils [#/volume] in Blood by Automated count 1.8-7.7 [facility] Neutrophils [#/volume] in Bl ood by Automated countOrdered By: Ivana Salcedo on 01-01-2025 Neutrophils (Bld) [#/Vol] 6.9 10*3/uL Normal 1.8-7.7 [facility] Comment on above: Performed By: #### C BC, ESR, BMP, CRP #### [facility] [address] [place] [address] Neutrophils/100 WBC Auto (Bl d)Ordered By: Ivana Salcedo on 01-01-2025 Neutrophils/100 WBC (Bld) Automated neutrophil % . [facility] Neutrophils/100 leukocytes i n Blood by Automated countOrdered By: Ivana Salcedo on 01-01-2025 Neutrophils/100 WBC (Bld) 73.6 % Normal . [facility] Comment on above: Performed By: #### C BC, ESR, BMP, CRP #### [facility] [address] [place] [address] No Panel InformationOrdered By: Ivana Salcedo on 01-01-2025 Estimated GFR (CKD-EPI) 9.886 mL/Min [facility] Creatinine Clearance (Chem 20.53 [facility] Nucleated erythrocytes [Pres ence] in Blood by Automated countOrdered By: Ivana Salcedo on 01-01-2025 Nucleated RBC Auto Ql (Bld) Nucleated erythrocytes [Presence] in Blood by Automated count 0-0.5 [facility] Nucleated RBC Auto Ql (Bld) 0.0 /100{WBC} 0-0.5 [facility] Platelet mean volume Auto (B ld) [Entitic vol]Ordered By: Ivana Salcedo on 01-01-2025 Platelet mean volume (Bld) [Entitic vol] Platelet mean volume [Entitic volume] in Blood by Automated count 6.6-10.1 [facility] Platelet mean volume [Entiti c volume] in Blood by Automated countOrdered By: Ivana Salcedo on 01-01-2025 Platelet mean volume (Bld) [Entitic vol] 7.4 fL Normal 6.6-10.1 [facility] Comment on above: Performed By: #### C BC, ESR, BMP, CRP #### [facility] [address] Platelets Auto (Bld) [#/Vol] Ordered By: Ivana Salcedo on 01-01-2025 Platelets (Bld) [#/Vol] Platelets [#/volume] in Blood by Automated count 150-450 [facility] Platelets [#/volume] in Bloo d by Automated countOrdered By: Ivana Salcedo on 01-01-2025 Platelets (Bld) [#/Vol] 304 10*3/uL Normal 150-450 [facility] Comment on above: Performed By: #### C BC, ESR, BMP, CRP #### [facility] [address] [place] [address] [place] Potassium [Moles/volume] in Serum or PlasmaOrdered By: Ivana Salcedo on 01-01-2025 Potassium [Moles/Vol] Potassium [Moles/volume] in Serum or Plasma 3.5-5.1 [facility] Potassium [Moles/Vol] 4.8 mmol/L Normal 3.5-5.1 [facility] Comment on above: Performed By: #### C BC, ESR, BMP, CRP #### [facility] [address] [place] [address] [place] Protein [Mass/volume] in Ser um or PlasmaOrdered By: Ivana Salcedo on 01-01-2025 Protein [Mass/Vol] Protein [Mass/volume ] in Serum or Plasma 6.4-8.9 [facility] Protein [Mass/Vol] 8.4 g/dL Normal 6.4-8.9 [facility] Comment on above: Performed By: #### C BC, ESR, BMP, CRP #### [facility] [address] [place] [address] RBC Auto (Bld) [#/Vol]Ordere d By: Ivana Salcedo on 01-01-2025 RBC (Bld) [#/Vol] Erythrocytes [#/volu me] in Blood by Automated count Low 3.90-5.60 [facility] Respiratory specimen influen za A virus, influenza B virus, respiratory syncytical virOrdered By: Ivana Salcedo on 01-01-2025 SARS-CoV-2 (COVID-19) RNA SHAY+probe Ql (Unsp spec) Respiratory specimen influenza A virus, influenza B virus, respiratory syncytical vir [facility] SARS-CoV-2 (COVID-19) RNA SHAY+probe Ql (Unsp spec) [facility] Serum globulin measurement b y calculation (mass/volume)Ordered By: Ivana Salcedo on 01-01-2025 Globulin (S) [Mass/Vol] 4.0 g/dL [facility] Comment on above: Performed By: #### C BC, ESR, BMP, CRP #### [facility] [address] [place] [address] Serum or plasma albumin/glob ulin mass ratioOrdered By: Ivana Salcedo on 01-01-2025 Albumin/Globulin [Mass ratio] Serum or plasma albumin/globulin mass ratio [facility] Albumin/Globulin [Mass ratio] 1.1 {ratio} [facility] Comment on above: Performed By: #### C BC, ESR, BMP, CRP #### [facility] [address] [place] [address] Serum or plasma anion gap de terminationOrdered By: Ivana Salcedo on 01-01-2025 Anion gap [Moles/Vol] Serum or plasma an ion gap determination High 6.0-15.0 [facility] Anion gap [Moles/Vol] 15.7 mmol/L High 6.0-15.0 [facility] Comment on above: Performed By: #### C BC, ESR, BMP, CRP #### [facility] [address] [place] [address] Sodium [Moles/volume] in Ser um or PlasmaOrdered By: Ivana Salcedo on 01-01-2025 Sodium [Moles/Vol] Sodium [Moles/volume ] in Serum or Plasma 136-145 [facility] Sodium [Moles/Vol] 137 mmol/L Normal 136-145 [facility] Comment on above: Performed By: #### C BC, ESR, BMP, CRP #### [facility] [address] [place] [address] Troponin I High Sensitivityo n 01-01-2025 Troponin I High Sensitivity 12 Normal 0-20 [facility] Comment on above: Result Comment: The Troponin units of report have been changed to meet the Chest Pain Accreditation requirement, element EC5.M1l2. Troponin units are changed from pg/ml to ng/L. Also, the decimal is removed and results are in whole numbers. PERFORMED BY: [place] [address] PATHOLOGIST ENGINEER [employer] IKM ELLIOTT M.D. Performed By: #### C BC, ESR, BMP, CRP #### [facility] [address] [place] [address] Troponin I.cardiac [Mass/vol ume] in Serum or Plasma by Detection limit <= 0.01 ng/Ordered By: Ivana Salcedo on 01-01-2025 Troponin I.cardiac DL <= 0.01 ng/mL [Mass/Vol] Troponin I.cardiac [Mass/volume] in Serum or Plasma by Detection limit <= 0.01 ng/ 0-20 [facility] Comment on above: The Troponin units o [...] <= 0.01 ng/mL [Mass/Vol] 12 ng/L 0-20 [facility] Comment on above: The Troponin units o f report have been changed to meet the Chest Pain Accreditation requirement, element EC5.M1l2. Troponin units are changed from pg/ml to ng/L. Also, the decimal is removed and results are in whole numbers. Urea nitrogen [Mass/volume] in Serum or PlasmaOrdered By: Ivana Salcedo on 01-01-2025 Urea nitrogen [Mass/Vol] Urea nitrogen [Mass/volume] in Serum or Plasma [facility] 03-30 [facility] Urea nitrogen [Mass/Vol] 69 mg/dL High 03-30 [facility] Comment on above: Performed By: #### C BC, ESR, BMP, CRP #### [facility] [address] WBC Auto (Bld) [#/Vol]Ordere d By: Ivana Salcedo on 01-01-2025 WBC (Bld) [#/Vol] Leukocytes [#/volume ] in Blood by Automated count 4.1-10.5 [facility] BLOOD UREA NITROGENon 2024 Urea nitrogen [Mass/Vol] 58 mg/dL [facility] 01-26 [facility] Comment on above: Performed By: #### 3 094-0 #### [facility] ([id number]) [address] [place] [address] Urea nitrogen [Mass/Vol] 112 mg/dL [facility] 01-26 [facility] Comment on above: Performed By: #### 3 094-0 #### [facility] ([id number]) [address] [place] [address] 36on 12-28-2024 36 Patients Nucynta was denied by Medicare. Patient calling to see what the next step is. 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 No meds taken. C/o 10/10 low back pain sharp. Had mri 2 weeks ago showing pinched nerves. Pleasant/cooperative . Pt with LAVF for HD on wed-wed-wed. Limb alert band placed Normal [facility] EDPROVon 12-27-2024 EDPROV History of Present [...] foot and back. History provided by: Patient Judith Coma Scale Score: 15 History Past Medical [...] Triage Vitals Temp Heart Rate Resp BP 12/27/244 12/27/2420312/27/2420012/27/24203 36.5 ???C (97.7 ???F) 73 16 163/71 SpO2 Temp src Heart Rate Source Patient Position 12/27/244 -- 12/27/2420012/27/24 020 97 % Monitor Sitting BP Location [...] a medicine to help him. Attestion Tanvir Bahhur, MD 12/27/24 0357 [facility] Telephoneon 12-26-2024 Telephone [id number] Evans Forte 1970 M Date Provider Department Center 12/26/2024 JULIO SARKAR [facility] Family History Problem Relation [...] Sister Maternal Grandmother Daughter Father's Brother Alive [facility] 36on 12-22-2024 36 Contacted pt and lvm for patient. Patient has not had psych eval done yet and is scheduled for SCS trial on 01/02/25. [facility] Follow-Upon 12-21-2024 Follow-Up [id number] Jama 1970 M Date Provider Department Center 12/21/[address] [facility] Family History Problem Relation Age [...] Grandmother Daughter Father's Brother Alive Level of Service:63136 [place] OFFICE/OUTPATIENT ESTABLISHED MOD MDM 30 MIN Reason for Visit and Comments: Follow-up [359516] - Neuropathic pain [facility] Office Visiton 12-21-2024 Follow-up visit [id number] Jama 1970 M Date Provider Department Center 12/21/2024 [...] Grandmother Daughter Father's Brother Alive Level of Service:49966 [place] OFFICE/OUTPATIENT ESTABLISHED MOD MDM 30 MIN Reason for Visit and Comments: Follow-up [424598] - 3 month follow up [facility] Orders Onlyon 12-21-2024 Orders Only [id number] Evans Forte 1970 M Date Provider Department [...] Sister Maternal Grandmother Daughter Father's Brother Alive [facility] 36on 12-15-2024 36 TC contacted patient to follow up on status of work up. Patient states working with podiatry, no wounds at this time. Working with pain management doctor. Still working on dental clearance. Pt states still seeing ID for prior lymph node concerns. Pt has no additional concerns at this time. Melinda Hidalgo RN [facility] 36 Please let patient k now that I ordered valium for him to take prior to his MRI. Thank you [facility] 36 Order for oral Valiu m 10mg x1 to be taken prior to MRI placed today. Patient update. [facility] 36on 12-14-2024 36 LVM to call back to reschedule his NS appt TRS [facility] MR LUMBAR SPINE WO CONTRASTo n [...] which is only partially included in the [id number]. Correlate with physical exam findings. Consider ultrasound for further evaluation. Electronically signed: Chintan Villanueva MD. Not Vldtd Invalid Interpretation Code [facility] Telephoneon 12-12-2024 Telephone [id number] Evans Forte 1970 M Date Provider Department [place] 12/12/2024 KLELY FRANCOIS PAIN [facility] Family History Problem [...] Reason for Visit and Comments: MRI [Other] [facility] 36on 12-05-2024 36 Pt contacted clinic to be seen sooner to discuss pain medication. At the moment there is not any sooner appointment. Patient is on the cancellation list and patient also educated to contact clinic as well to ask for cancellations. [facility] 36 Patient contacted clinic back and investigative writer let patient know of Dr. Cooley's response. Patient states he has increased his dose a long time ago and it is not working. Patient states he will contact his PCP to receive pain medication until he has the procedure. [facility] [address] Cooley regarding athis and he would like patient to increase dose to 20mg nightly like discussed at visit. Sink Cutter called and left message for patient with new dosing instructions. Sink Cutter also stated that medication changes are not done over the phone and any further changes will need to be discussed at an office visit. [facility] 36on 12-04-2024 36 Patient contacted clinic and wanted to let you know that the medication is not working for his pain. Patient states he has been on it for two weeks. [facility] Telephoneon 12-04-2024 Telephone [id number] Evans Forte [address] [facility] Provider Department Center 12/04/2024 [id number] AVILEZ PAIN [facility] Family History Problem [...] Sister Maternal Grandmother Daughter Father's Brother Alive [facility] US venous duplex LE RTon venous duplex LE [facility] [address] Ultrasound Report Signed Patient: Evans Forte MR#: [id number] : 1970 Acct:[id number] Age/Sex: 54 / M ADM Date: 11/27/24 Loc: ER Room: Type: [facility] ER Attending Dr: Ordering Provider: Venkat Burgos [...] Ramirez Jean M.D.11/28/2024 3:29 PM Dictation Location: [place] [address] Tech: Olamide Alexander Transcribed By: CATHLEEN 11/28/24 1529 Dictated By: Ramirez Jean MD 11/28/24 1528 Signed By: 11/28/24 1529 Normal [facility] Basic Metabolic Panelon 11-05 Anion gap [Moles/Vol] 17.2 mmol/L High 6.0-15.0 [facility] Comment on above: Performed By: #### C BC, ESR, BMP, CRP #### [facility] [address] [place] [address] [place] Calcium [Mass/Vol] 9.1 mg/dL Normal 8.6-10.3 [facility] Comment on above: Performed By: #### C BC, ESR, BMP, CRP #### [facility] [address] [place] [id number] [place] Chloride [Moles/Vol] 93 mmol/L Low 98-107 [facility] Comment on above: Performed By: #### C BC, ESR, BMP, CRP #### [facility] [address] CO2 [Moles/Vol] 24.7 mmol/L Normal 21.0-31.0 [facility] Comment on above: Performed By: #### C BC, ESR, BMP, CRP #### [facility] [address] Creatinine [Mass/Vol] 6.56 mg/dL High 0.70-1.30 [facility] Comment on above: Performed By: #### C BC, ESR, BMP, CRP #### [facility] [address] Creatinine Clr Calc Pharmacy 19.67 Normal [facility] Comment on above: Performed By: #### C BC, ESR, BMP, CRP #### [facility] [address] Estimated GFR 9.418 mL/Min Normal [facility] Comment on above: Performed By: #### C BC, ESR, BMP, CRP #### [facility] [address] Glucose [Mass/Vol] 199 mg/dL High 70-100 [facility] Comment on above: Result Comment: [place] Glucose Reference Range is dependent on time and content of last meal. Glucose of more than 200 mg/dL in a nonstressed, ambulatory subject supports the diagnosis of Diabetes Mellitus. ADA recommended reference range Performed By: #### C BC, ESR, BMP, CRP #### [facility] [address] [place] [address] [place] Potassium [Moles/Vol] 3.9 mmol/L Normal 3.5-5.1 [facility] Comment on above: Performed By: #### C BC, ESR, BMP, CRP #### [facility] [address] [place] [address] [place] Sodium [Moles/Vol] 131 mmol/L Low 136-145 [facility] Comment on above: Performed By: #### C BC, ESR, BMP, CRP #### [facility] [address] Urea nitrogen [Mass/Vol] 47 mg/dL High 7-25 [facility] Comment on above: Performed By: #### C BC, ESR, BMP, CRP #### [address] Basophils Auto (Bld) [#/Vol] Ordered By: Venkat Burgos on 11-27-2024 Basophils (Bld) [#/Vol] Automated basophil count 0.0-0.2 [facility] Basophils/100 WBC Auto (Bld) Ordered By: Venkat Burgos on 11-27-2024 Basophils/100 WBC (Bld) Automated basophil % . [facility] C reactive protein [Mass/vol ume] in Serum or PlasmaOrdered By: Venkat Burgos on 11-27-2024 CRP [Mass/Vol] C reactive protein [Mass/volume] in Serum or Plasma High 0.0-0.5 [facility] C-Reactive Proteinon 025 C-Reactive Protein 2.8 mg/dL High 0.0-0.5 [facility] Comment on above: Result Comment: PERF ORMED BY: [place] [address] PATHOLOGIST ENGINEER [employer] KIM ELLIOTT M.D. Performed By: #### C BC, ESR, BMP, CRP #### [address] Calcium [Mass/volume] in Ser um or PlasmaOrdered By: Venkat Burgos on 11-27-2024 Calcium [Mass/Vol] Calcium [Mass/volume ] in Serum or Plasma 8.6-10.3 [facility] Carbon dioxide, total [Moles /volume] in Serum or PlasmaOrdered By: Venkat Burgos on 11-27-2024 CO2 [Moles/Vol] Carbon dioxide, tota l [Moles/volume] in Serum or Plasma 21.0-31.0 [facility] Chloride [Moles/volume] in S james or PlasmaOrdered By: Venkat Burgos on 11-27-2024 Chloride [Moles/Vol] Chloride [Moles/vol ume] in Serum or Plasma Low 98-107 [facility] Complete Blood Count Auto Di ffon 11-27-2024 Basophils (Bld) [#/Vol] 0.1 10*3/uL Normal 0.0-0.2 [facility] Comment on above: Performed By: #### C BC, ESR, BMP, CRP #### [facility] [address] Basophils/100 WBC (Bld) 1.0 % Normal . [facility] Comment on above: Performed By: #### C BC, ESR, BMP, CRP #### [address] Eosinophils (Bld) [#/Vol] 0.6 10*3/uL High 0.0-0.45 [facility] Comment on above: Performed By: #### C BC, ESR, BMP, CRP #### [address] Eosinophils/100 WBC (Bld) 6.0 % Normal . [facility] Comment on above: Performed By: #### C BC, ESR, BMP, CRP #### [address] Erythrocyte distribution width (RBC) [Ratio] 15.0 % High 12.0-14.8 [facility] Comment on above: Performed By: #### C BC, ESR, BMP, CRP #### [address] Hematocrit (Bld) [Volume fraction] 35.6 % Low 38.8-50.0 [facility] Comment on above: Performed By: #### C BC, ESR, BMP, CRP #### [address] Hemoglobin (Bld) [Mass/Vol] 12.1 g/dL Low 13.0-17.0 [facility] Comment on above: Performed By: #### C BC, ESR, BMP, CRP #### [address] Lymphocytes (Bld) [#/Vol] 1.5 10*3/uL Normal 1.00-4.8 [facility] Comment on above: Performed By: #### C BC, ESR, BMP, CRP #### [address] Lymphocytes/100 WBC (Bld) 14.1 % Normal . [facility] Comment on above: Performed By: #### C BC, ESR, BMP, CRP #### [address] MCH (RBC) [Entitic mass] 30.6 pg Normal 27.5-35.2 [facility] Comment on above: Performed By: #### C BC, ESR, BMP, CRP #### [address] MCV (RBC) [Entitic vol] 90.1 fL Normal 83.5-101 [facility] Comment on above: Performed By: #### C BC, ESR, BMP, CRP #### [address] Mean Corpuscular HGB Conc 33.9 g/dL Normal 32.5-35.6 [facility] Comment on above: Performed By: #### C BC, ESR, BMP, CRP #### [address] Monocytes (Bld) [#/Vol] 1.0 10*3/uL High 0.0-0.8 [facility] Comment on above: Performed By: #### C BC, ESR, BMP, CRP #### [address] Monocytes/100 WBC (Bld) 18.22 % Normal 0.00-20.00 [facility] Comment on above: Performed By: #### C BC, ESR, BMP, CRP #### [address] Monocytes/100 WBC (Bld) 9.3 % Normal . [facility] Comment on above: Performed By: #### C BC, ESR, BMP, CRP #### [address] Neutrophils (Bld) [#/Vol] 7.4 10*3/uL Normal 1.8-7.7 [facility] Comment on above: Performed By: #### C BC, ESR, BMP, CRP #### [address] Neutrophils/100 WBC (Bld) 69.6 % Normal . [facility] Comment on above: Performed By: #### C BC, ESR, BMP, CRP #### [facility] [address] NRBC% 0.0 /100{WBC} Normal 0-0.5 [facility] Comment on above: Performed By: #### C BC, ESR, BMP, CRP #### [address] Platelet mean volume (Bld) [Entitic vol] 7.0 fL Normal 6.6-10.1 [facility] Comment on above: Performed By: #### C BC, ESR, BMP, CRP #### [address] Platelets (Bld) [#/Vol] 400 10*3/uL Normal 150-450 [facility] Comment on above: Performed By: #### C BC, ESR, BMP, CRP #### [address] RBC (Bld) [#/Vol] 3.95 10*6/uL Normal 3.90-5.[address] [facility] Comment on above: Performed By: #### C BC, ESR, BMP, CRP #### [address] WBC (Bld) [#/Vol] 10.6 10*3/uL High 4.1-10.[address] [facility] Comment on above: Performed By: #### C BC, ESR, BMP, CRP #### [address] Creatinine [Mass/volume] in Serum or PlasmaOrdered By: Venkat Burgos on 11-27-2024 Creatinine [Mass/Vol] Creatinine [Mass/volume] in Serum or Plasma High 0.70-1.30 [facility] Eosinophils Auto (Bld) [#/Vo l]Ordered By: Venkat Burgos on 11-27-2024 Eosinophils (Bld) [#/Vol] Automated eosinophil count High 0.0-0.45 [facility] Eosinophils/100 WBC Auto (Bl d)Ordered By: Venkat Burgos on 11-27-2024 Eosinophils/100 WBC (Bld) Automated eosinophil % . [facility] Erythrocyte Sedimentation Ra darrel 11-27-2024 ESR (Bld) [Velocity] 122 mm/h High 0-19 [facility] Comment on above: Result Comment: PERF ORMED BY: [place] [address] PATHOLOGIST ENGINEER [employer] KIM ELLIOTT M.D. Performed By: #### C BC, ESR, BMP, CRP #### [address] Erythrocyte distribution wid th Auto (RBC) [Ratio]Ordered By: Venkat Burgos on 11-27-2024 Erythrocyte distribution width (RBC) [Ratio] Erythrocyte distribution width [Ratio] by Automated count High 12.0-14.8 [facility] Erythrocyte sedimentation ra te by Photometric methodOrdered By: Venkat Burgos on 11-27-2024 ESR Photometric method (Bld) [Velocity] Erythrocyte sedimentation rate by Photometric method High 0-19 [facility] Glucose [Mass/volume] in Ser um or PlasmaOrdered By: Venkat Burgos on 11-27-2024 Glucose [Mass/Vol] Glucose [Mass/volume ] in Serum or Plasma High 70-100 [facility] Comment on above: ADA recommended refe rence rangeRandom Glucose Reference Range is dependent on time and content of last meal. Glucose of more than 200 mg/dL in a nonstressed, ambulatory subject supports the diagnosis of Diabetes Mellitus. Hematocrit Auto (Bld) [Volum e fraction]Ordered By: Venkat Burgos on 11-27-2024 Hematocrit (Bld) [Volume fraction] Hematocrit [Volume Fraction] of Blood by Automated count Low 38.8-50.0 [facility] Hemoglobin [Mass/volume] in BloodOrdered By: Venkat Burgos on 11-27-2024 Hemoglobin (Bld) [Mass/Vol] Hemoglobin [Mass/volume] in Blood Low 13.0-17.0 [facility] Leukocytes [#/volume] correc scott for nucleated erythrocytes in Blood by Automated counOrdered By: Venkat Burgos on 11-27-2024 WBC corrected for nucl RBC Auto (Bld) [#/Vol] Leukocytes [#/volume] corrected for nucleated erythrocytes in Blood by Automated coun High 4.1-10.5 [facility] Lymphocytes Auto (Bld) [#/Vo l]Ordered By: Venkat Burgos on 11-27-2024 Lymphocytes (Bld) [#/Vol] Lymphocytes [#/volume] in Blood by Automated count 1.00-4.8 [facility] Lymphocytes/100 WBC Auto (Bl d)Ordered By: Venkat Bugros on 11-27-2024 Lymphocytes/100 WBC (Bld) Lymphocytes/100 leukocytes in Blood by Automated count . [facility] MCH Auto (RBC) [Entitic mass ]Ordered By: Venkat Burgos on 11-27-2024 MCH (RBC) [Entitic mass] MCH [Entitic mass] by Automated count 27.5-35.2 [facility] MCHC Auto (RBC) [Mass/Vol]Or dered By: Venkat Burgos on 11-27-2024 MCHC (RBC) [Mass/Vol] MCHC [Mass/volume] by Automated count 32.5-35.6 [facility] MCV Auto (RBC) [Entitic vol] Ordered By: Venkat Burgos on 11-27-2024 MCV (RBC) [Entitic vol] MCV [Entitic volume] by Automated count 83.5-101 [facility] Monocyte distribution width [Entitic volume] in Blood by AutomatedOrdered By: Venkat Burgos on 11-27-2024 Monocyte distribution width Auto (Bld) [Entitic vol] Monocyte distribution width [Entitic volume] in Blood by Automated 0.00-20.00 [facility] Monocytes Auto (Bld) [#/Vol] Ordered By: Venkat Burgos on 11-27-2024 Monocytes (Bld) [#/Vol] Automated blood monocyte count High 0.0-0.8 [facility] Monocytes/100 WBC Auto (Bld) Ordered By: Venkat Burgos on 11-27-2024 Monocytes/100 WBC (Bld) Automated monocyte % . [facility] Neutrophils Auto (Bld) [#/Vo l]Ordered By: Venkat Burgos on 11-27-2024 Neutrophils (Bld) [#/Vol] Neutrophils [#/volume] in Blood by Automated count 1.8-7.7 [facility] Neutrophils/100 WBC Auto (Bl d)Ordered By: Venkat Burgos on 11-27-2024 Neutrophils/100 WBC (Bld) Automated neutrophil % . [facility] No Panel InformationOrdered By: Venkat Burgos on 11-27-2024 Estimated GFR (CKD-EPI) 9.418 mL/Min [facility] Creatinine Clearance (Chem 19.67 [facility] Nucleated erythrocytes [Pres ence] in Blood by Automated countOrdered By: Venkat Burgos on 11-27-2024 Nucleated RBC Auto Ql (Bld) Nucleated erythrocytes [Presence] in Blood by Automated count 0-0.5 [facility] Platelet mean volume Auto (B ld) [Entitic vol]Ordered By: Venkat Burgos on 11-27-2024 Platelet mean volume (Bld) [Entitic vol] Platelet mean volume [Entitic volume] in Blood by Automated count 6.6-10.1 [facility] Platelets Auto (Bld) [#/Vol] Ordered By: Venkat Burgos on 11-27-2024 Platelets (Bld) [#/Vol] Platelets [#/volume] in Blood by Automated count 150-450 [facility] Potassium [Moles/volume] in Serum or PlasmaOrdered By: Venkat Burgos on 11-27-2024 Potassium [Moles/Vol] Potassium [Moles/volume] in Serum or Plasma 3.5-5.1 [facility] RBC Auto (Bld) [#/Vol]Ordere d By: Venkat Burgos on 11-27-2024 RBC (Bld) [#/Vol] Erythrocytes [#/volu me] in Blood by Automated count 3.90-5.60 [facility] Serum or plasma anion gap de terminationOrdered By: Venkat Burgos on 11-27-2024 Anion gap [Moles/Vol] Serum or plasma an ion gap determination High 6.0-15.0 [facility] Sodium [Moles/volume] in Ser um or PlasmaOrdered By: Venkat Burgos on 11-27-2024 Sodium [Moles/Vol] Sodium [Moles/volume ] in Serum or Plasma Low 136-145 [facility] Urea nitrogen [Mass/volume] in Serum or PlasmaOrdered By: Venkat Burgos on 11-27-2024 Urea nitrogen [Mass/Vol] Urea nitrogen [Mass/volume] in Serum or Plasma High 7-25 [facility] WBC Auto (Bld) [#/Vol]Ordere d By: Venkat Burgos on 11-27-2024 WBC (Bld) [#/Vol] Leukocytes [#/volume ] in Blood by Automated count High 4.1-10.5 [facility] Office Visiton 11-23-2024 Follow-up visit [id number] Evans Forte 1970 M Date Provider Department Center 11/23/2024 CHONG WARREN [facility] Family History Problem Relation [...] Grandmother Daughter Father's Brother Alive Level of Service:95766 [place] OFFICE/OUTPATIENT NEW MODERATE MDM 45 MINUTES (GC) Reason for Visit and Comments: New Patient [632] - Neuropathy Normal [facility] Telemedicineon 11-07-2024 Telemedicine [id number] Jama 1970 M Provider Department Center 11/07/2024 FAUSTINO GUZMÁN [facility] IN[facility] Family History Problem [...] Grandmother Daughter Father's Brother Alive Level of Service:33809 [place] OFFICE/OUTPATIENT ESTABLISHED SF MDM 10 MIN (95) Normal [facility] Follow-Upon 10-31-2024 Follow-Up [id number] Evans Forte 1970 M Date Provider Department [...] Grandmother Daughter Father's Brother Alive Level of Service:41942 [place] OFFICE/OUTPATIENT ESTABLISHED MOD MDM 30 MIN Normal [facility] Alanine aminotransferase [En zymatic activity/volume] in Serum or PlasmaOrdered By: Will Cerna on 10-29-2024 ALT [Catalytic activity/Vol] Alanine aminotransferase [Enzymatic activity/volume] in Serum or Plasma 7-52 [facility] Albumin [Mass/volume] in Ser um or Plasma by Bromocresol green (BCG) dye binding methoOrdered By: Will Cerna on 10-29-2024 Albumin BCG dye [Mass/Vol] Albumin [Mass/volume] in Serum or Plasma by Bromocresol green (BCG) dye binding metho 3.5-5.7 [facility] Alkaline phosphatase [Enzyma tic activity/volume] in Serum or PlasmaOrdered By: Will Cerna on 10-29-2024 ALP [Catalytic activity/Vol] Alkaline phosphatase [Enzymatic activity/volume] in Serum or Plasma 34-104 [facility] Aspartate aminotransferase [ Enzymatic activity/volume] in Serum or PlasmaOrdered By: Will Cerna on 10-29-2024 AST [Catalytic activity/Vol] Aspartate aminotransferase [Enzymatic activity/volume] in Serum or Plasma Low 13-39 [facility] Basophils Auto (Bld) [#/Vol] Ordered By: Will Cerna on 10-29-2024 Basophils (Bld) [#/Vol] Automated basophil count 0.0-0.2 [facility] Basophils/100 WBC Auto (Bld) Ordered By: Will Cerna on 10-29-2024 Basophils/100 WBC (Bld) Automated basophil % . [facility] Bilirubin.total [Mass/volume ] in Serum or PlasmaOrdered By: Will Cerna on 10-29-2024 Bilirubin [Mass/Vol] Bilirubin.total [Mass/volume] in Serum or Plasma 0.3-1.0 [facility] Blood Cultureon 10-29-2024 Bacteria identified Cx Nom (Bld) NO GROWTH 5 DAYS PERFORMED BY: [place] [address] PATHOLOGIST ENGINEER [employer] KIM ELLIOTT M.D. Normal [facility] Comment on above: Performed By: #### C BC, ESR, BMP, CRP #### [facility] [address] [place] [address] Bacteria identified Cx Nom (Bld) NO GROWTH 5 DAYS PERFORMED BY: [place] [address] PATHOLOGIST ENGINEER [employer] KIM ELLIOTT M.D. Normal [facility] Comment on above: Performed By: #### C BC, ESR, BMP, CRP #### [facility] [address] [place] [address] C reactive protein [Mass/vol ume] in Serum or PlasmaOrdered By: Will Cerna on 10-29-2024 CRP [Mass/Vol] C reactive protein [Mass/volume] in Serum or Plasma High 0.0-0.5 [facility] C-Reactive Proteinon 025 C-Reactive Protein 1.5 mg/dL High 0.0-0.5 [facility] Comment on above: Result Comment: PERF ORMED BY: [place] [address] PATHOLOGIST ENGINEER [employer] KIM ELLIOTT M.D. Performed By: #### C MP, CRP, LACTIC, CBC, ESR #### [facility] [address] Calcium [Mass/volume] in Ser um or PlasmaOrdered By: Will Cerna on 10-29-2024 Calcium [Mass/Vol] Calcium [Mass/volume ] in Serum or Plasma 8.6-10.3 [facility] Carbon dioxide, total [Moles /volume] in Serum or PlasmaOrdered By: Will Cerna on 10-29-2024 CO2 [Moles/Vol] Carbon dioxide, tota l [Moles/volume] in Serum or Plasma 21.0-31.0 [facility] Chloride [Moles/volume] in S james or PlasmaOrdered By: Will Cerna on 10-29-2024 Chloride [Moles/Vol] Chloride [Moles/vol ume] in Serum or Plasma 98-107 [facility] Complete Blood Count Auto Di ffon 10-29-2024 Basophils (Bld) [#/Vol] 0.1 10*3/uL Normal 0.0-0.2 [facility] Comment on above: Performed By: #### C MP, CRP, LACTIC, CBC, ESR #### [facility] [address] Basophils/100 WBC (Bld) 1.1 % Normal . [facility] Comment on above: Performed By: #### C MP, CRP, LACTIC, CBC, ESR #### [facility] [address] [place] [address] [place] Eosinophils (Bld) [#/Vol] 0.3 10*3/uL Normal 0.0-0.45 [facility] Comment on above: Performed By: #### C MP, CRP, LACTIC, CBC, ESR #### [facility] [address] [place] [address] [place] Eosinophils/100 WBC (Bld) 3.4 % Normal . [facility] Comment on above: Performed By: #### C MP, CRP, LACTIC, CBC, ESR #### [facility] [address] Erythrocyte distribution width (RBC) [Ratio] 14.3 % Normal 12.0-14.8 [facility] Comment on above: Performed By: #### C MP, CRP, LACTIC, CBC, ESR #### [address] Hematocrit (Bld) [Volume fraction] 35.5 % Low 38.8-50.0 [facility] Comment on above: Performed By: #### C MP, CRP, LACTIC, CBC, ESR #### [address] Hemoglobin (Bld) [Mass/Vol] 12.1 g/dL Low 13.0-17.0 [facility] Comment on above: Performed By: #### C MP, CRP, LACTIC, CBC, ESR #### [address] Lymphocytes (Bld) [#/Vol] 1.4 10*3/uL Normal 1.00-4.8 [facility] Comment on above: Performed By: #### C MP, CRP, LACTIC, CBC, ESR #### [address] Lymphocytes/100 WBC (Bld) 14.2 % Normal . [facility] Comment on above: Performed By: #### C MP, CRP, LACTIC, CBC, ESR #### [address] MCH (RBC) [Entitic mass] 31.2 pg Normal 27.5-35.2 [facility] Comment on above: Performed By: #### C MP, CRP, LACTIC, CBC, ESR #### [address] MCV (RBC) [Entitic vol] 91.2 fL Normal 83.5-101 [facility] Comment on above: Performed By: #### C MP, CRP, LACTIC, CBC, ESR #### [address] Mean Corpuscular HGB Conc 34.2 g/dL Normal 32.5-35.6 [facility] Comment on above: Performed By: #### C MP, CRP, LACTIC, CBC, ESR #### [address] Monocytes (Bld) [#/Vol] 0.7 10*3/uL Normal 0.0-0.8 [facility] Comment on above: Performed By: #### C MP, CRP, LACTIC, CBC, ESR #### [address] Monocytes/100 WBC (Bld) 13.40 % Normal 0.00-20.00 [facility] Comment on above: Performed By: #### C MP, CRP, LACTIC, CBC, ESR #### [address] Monocytes/100 WBC (Bld) 6.8 % Normal . [facility] Comment on above: Performed By: #### C MP, CRP, LACTIC, CBC, ESR #### [address] Neutrophils (Bld) [#/Vol] 7.5 10*3/uL Normal 1.8-7.7 [facility] Comment on above: Performed By: #### C MP, CRP, LACTIC, CBC, ESR #### [place] [address] [place] Neutrophils/100 WBC (Bld) 74.5 % Normal . [facility] Comment on above: Performed By: #### C MP, CRP, LACTIC, CBC, ESR #### [address] NRBC% 0.0 /100{WBC} Normal 0-0.5 The [facility] Comment on above: Performed By: #### C MP, CRP, LACTIC, CBC, ESR #### [place] [address] [place] Platelet mean volume (Bld) [Entitic vol] 6.7 fL Normal 6.6-10.1 The [facility] Comment on above: Performed By: #### C MP, CRP, LACTIC, CBC, ESR #### [place] [address] [place] Platelets (Bld) [#/Vol] 368 10*3/uL Normal 150-450 [facility] Comment on above: Performed By: #### C MP, CRP, LACTIC, CBC, ESR #### [address] RBC (Bld) [#/Vol] 3.89 10*6/uL Low 3.90-5.[address] [facility] Comment on above: Performed By: #### C MP, CRP, LACTIC, CBC, ESR #### [address] WBC (Bld) [#/Vol] 10.1 10*3/uL Normal 4.1-10.[address] [facility] Comment on above: Performed By: #### C MP, CRP, LACTIC, CBC, ESR #### [address] Comprehensive Metabolic Pane nick 10-29-2024 Albumin [Mass/Vol] 4.3 g/dL Normal 3.5-5.7 The [facility] Comment on above: Performed By: #### C MP, CRP, LACTIC, CBC, ESR #### [address] Albumin/Globulin [Mass ratio] 1.1 {ratio} Normal [facility] Comment on above: Performed By: #### C MP, CRP, LACTIC, CBC, ESR #### [address] ALP [Catalytic activity/Vol] 90 U/L Normal 34-104 [facility] Comment on above: Performed By: #### C MP, CRP, LACTIC, CBC, ESR #### [address] ALT [Catalytic activity/Vol] 11 U/L Normal 7-52 [facility] Comment on above: Performed By: #### C MP, CRP, LACTIC, CBC, ESR #### [address] Anion gap [Moles/Vol] 16.6 mmol/L High 6.0-15.0 Th e [facility] Comment on above: Performed By: #### C MP, CRP, LACTIC, CBC, ESR #### [address] AST [Catalytic activity/Vol] 7 U/L Low 13-39 [facility] Comment on above: Performed By: #### C MP, CRP, LACTIC, CBC, ESR #### [address] Bilirubin [Mass/Vol] 0.4 mg/dL Normal 0.3-1.0 [facility] Comment on above: Performed By: #### C MP, CRP, LACTIC, CBC, ESR #### [address] Calcium [Mass/Vol] 9.4 mg/dL Normal 8.6-10.3 [facility] Comment on above: Performed By: #### C MP, CRP, LACTIC, CBC, ESR #### [address] Chloride [Moles/Vol] 100 mmol/L Normal 98-107 [facility] Comment on above: Performed By: #### C MP, CRP, LACTIC, CBC, ESR #### [address] CO2 [Moles/Vol] 25.8 mmol/L Normal 21.0-31.0 The [facility] Comment on above: Performed By: #### C MP, CRP, LACTIC, CBC, ESR #### [place] [address] [place] Creatinine [Mass/Vol] 9.58 mg/dL High 0.70-1.30 [facility] Comment on above: Performed By: #### C MP, CRP, LACTIC, CBC, ESR #### [place] [address] [place] Creatinine Clr Calc Pharmacy 13.36 Normal [facility] Comment on above: Performed By: #### C MP, CRP, LACTIC, CBC, ESR #### [address] Estimated GFR 5.978 mL/Min Normal [facility] Comment on above: Performed By: #### C MP, CRP, LACTIC, CBC, ESR #### [facility] [address] [place] [address] [place] Globulin (S) [Mass/Vol] 3.9 g/dL Normal [facility] Comment on above: Performed By: #### C MP, CRP, LACTIC, CBC, ESR #### [facility] [address] [place] [address] [place] Glucose [Mass/Vol] 259 mg/dL High 70-100 The [facility] Comment on above: Result Comment: [facility] Glucose Reference Range is dependent on time and content of last meal. Glucose of more than 200 mg/dL in a nonstressed, ambulatory subject supports the diagnosis of Diabetes Mellitus. ADA recommended reference range Performed By: #### C MP, CRP, LACTIC, CBC, ESR #### [facility] [address] Potassium [Moles/Vol] 4.4 mmol/L Normal 3.5-5.1 [facility] Comment on above: Performed By: #### C MP, CRP, LACTIC, CBC, ESR #### [facility] [address] [place] [address] [place] Protein [Mass/Vol] 8.2 g/dL Normal 6.4-8.9 [facility] Comment on above: Performed By: #### C MP, CRP, LACTIC, CBC, ESR #### [facility] [address] [place] [address] [place] Sodium [Moles/Vol] 138 mmol/L Normal 136-145 [facility] Comment on above: Performed By: #### C MP, CRP, LACTIC, CBC, ESR #### [facility] [address] [place] [address] [place] Urea nitrogen [Mass/Vol] 78 mg/dL High 7-25 [facility] Comment on above: Performed By: #### C MP, CRP, LACTIC, CBC, ESR #### [facility] [address] [place] [address] [place] Creatinine [Mass/volume] in Serum or PlasmaOrdered By: Will Cerna on 10-29-2024 Creatinine [Mass/Vol] Creatinine [Mass/volume] in Serum or Plasma High 0.70-1.30 [facility] ECG 12 lead ECGon 10-29-2024 ECG 12 lead ECG [place] [facility] [place] [address] [place] [id number] Electrocardiograph Report Signed Patient: Evans Forte MR#: [id number] : 1970 Acct:[id number] Age/Sex: 54 / M ADM Date: 10/29/24 Loc: Room: [address] [place] [address] Type: ADM IN Attending Dr: Maxime Magana [...] was found Confirmed by UDAY SALGADO DO ([id number]) on 10/30/2024 1:34:21 AM Referred By: Electronically Signed By: UDAY SALGADO DO Transcribed By: MUS Signed By Uday Salgado DO 10/30 0134 Normal [facility] Eosinophils Auto (Bld) [#/Vo l]Ordered By: Will Cerna on 10-29-2024 Eosinophils (Bld) [#/Vol] Automated eosinophil count 0.0-0.45 [facility] Eosinophils/100 WBC Auto (Bl d)Ordered By: Will Cerna on 10-29-2024 Eosinophils/100 WBC (Bld) Automated eosinophil % . [facility] Erythrocyte Sedimentation Ra darrel 10-29-2024 ESR (Bld) [Velocity] 74 mm/h High 0-19 [facility] Comment on above: Result Comment: PERF ORMED BY: [place] [address] PATHOLOGIST ENGINEER [employer] KIM ELLIOTT M.D. Performed By: #### C MP, CRP, LACTIC, CBC, ESR #### [facility] [address] Erythrocyte distribution wid th Auto (RBC) [Ratio]Ordered By: Will Cerna on 10-29-2024 Erythrocyte distribution width (RBC) [Ratio] Erythrocyte distribution width [Ratio] by Automated count 12.0-14.8 [facility] Erythrocyte sedimentation ra te by Photometric methodOrdered By: Will Cerna on 10-29-2024 ESR Photometric method (Bld) [Velocity] Erythrocyte sedimentation rate by Photometric method High 0-19 [facility] Globulin Calc (S) [Mass/Vol] Ordered By: Will Cerna on 10-29-2024 Globulin (S) [Mass/Vol] Serum globulin measurement by calculation (mass/volume) [facility] Glucose Glucometer (BldC) [M ass/Vol]Ordered By: Maxime Magana on 10-29-2024 Glucose [Mass/Vol] Capillary blood gluc ose measurement by glucometer (mass/volume) [facility] Comment on above: Random Glucose Refer ence Range is dependent on time and content of last meal. Glucose of more than 200 mg/dL in a nonstressed, ambulatory subject supports the diagnosis of Diabetes Mellitus. Glucose Poct Glucometerson 0 10-29-2024 Glucose [Mass/Vol] 244 mg/dL Normal [facility] Comment on above: Result Comment: [place] Glucose Reference Range is dependent on time and content of last meal. Glucose of more than 200 mg/dL in a nonstressed, ambulatory subject supports the diagnosis of Diabetes Mellitus. PERFORMED BY: [facility] [address] [place] [address] PATHOLOGIST ENGINEER [employer] KIM ELLIOTT M.D. Performed By: #### C BC, ESR, BMP, CRP #### [facility] [address] Glucose [Mass/volume] in Ser um or PlasmaOrdered By: Will Cerna on 10-29-2024 Glucose [Mass/Vol] Glucose [Mass/volume ] in Serum or Plasma High 70-100 [facility] Comment on above: ADA recommended refe rence rangeRandom Glucose Reference Range is dependent on time and content of last meal. Glucose of more than 200 mg/dL in a nonstressed, ambulatory subject supports the diagnosis of Diabetes Mellitus. Hematocrit Auto (Bld) [Volum e fraction]Ordered By: Will Cerna on 10-29-2024 Hematocrit (Bld) [Volume fraction] Hematocrit [Volume Fraction] of Blood by Automated count Low 38.8-50.0 [facility] Hemoglobin [Mass/volume] in BloodOrdered By: Will Cerna on 10-29-2024 Hemoglobin (Bld) [Mass/Vol] Hemoglobin [Mass/volume] in Blood Low 13.0-17.0 [facility] Laboratory - Microbiology an d Antimicrobial susceptibilityOrdered By: Will Cerna on 10-29-2024 Bacteria identified Cx Nom (Bld) NO GROWTH 5 DAYS [facility] Bacteria identified Cx Nom (Bld) NO GROWTH 5 DAYS [facility] Lactate [Moles/volume] in Se rum or PlasmaOrdered By: Will Cerna on 10-29-2024 Lactate [Moles/Vol] Lactate [Moles/volum e] in Serum or Plasma 0.5-1.9 [facility] Comment on above: Lactic Acid referenc e range has been updated to 0.5 1.9 mmol/L and the critical range of 2.0 or greater. Lactic Acidon 10-29-2024 Lactate [Moles/Vol] 1.0 mmol/L Normal 0.5-1.[address] [facility] Comment on above: Result Comment: Lact ic Acid reference range has been updated to 0.5 ? 1.9 mmol/L and the critical range of 2.0 or greater. PERFORMED BY: [place] [address] PATHOLOGIST ENGINEER [employer] KIM ELLIOTT M.D. Performed By: #### C MP, CRP, LACTIC, CBC, ESR #### [address] Leukocytes [#/volume] correc scott for nucleated erythrocytes in Blood by Automated counOrdered By: Will Cerna on 10-29-2024 WBC corrected for nucl RBC Auto (Bld) [#/Vol] Leukocytes [#/volume] corrected for nucleated erythrocytes in Blood by Automated coun 4.1-10.5 [facility] Lymphocytes Auto (Bld) [#/Vo l]Ordered By: Will Cerna on 10-29-2024 Lymphocytes (Bld) [#/Vol] Lymphocytes [#/volume] in Blood by Automated count 1.00-4.8 [facility] Lymphocytes/100 WBC Auto (Bl d)Ordered By: Will Cerna on 10-29-2024 Lymphocytes/100 WBC (Bld) Lymphocytes/100 leukocytes in Blood by Automated count . [facility] MCH Auto (RBC) [Entitic mass ]Ordered By: Will Cerna on 10-29-2024 MCH (RBC) [Entitic mass] MCH [Entitic mass] by Automated count 27.5-35.2 [facility] MCHC Auto (RBC) [Mass/Vol]Or dered By: Will Cerna on 10-29-2024 MCHC (RBC) [Mass/Vol] MCHC [Mass/volume] by Automated count 32.5-35.6 [facility] MCV Auto (RBC) [Entitic vol] Ordered By: Will Cerna on 10-29-2024 MCV (RBC) [Entitic vol] MCV [Entitic volume] by Automated count 83.5-101 [facility] Monocyte distribution width [Entitic volume] in Blood by AutomatedOrdered By: Will Cerna on 10-29-2024 Monocyte distribution width Auto (Bld) [Entitic vol] Monocyte distribution width [Entitic volume] in Blood by Automated 0.00-20.00 [facility] Monocytes Auto (Bld) [#/Vol] Ordered By: Will Cerna on 10-29-2024 Monocytes (Bld) [#/Vol] Automated blood monocyte count 0.0-0.8 [facility] Monocytes/100 WBC Auto (Bld) Ordered By: Will Cerna on 10-29-2024 Monocytes/100 WBC (Bld) Automated monocyte % . [facility] Neutrophils Auto (Bld) [#/Vo l]Ordered By: Will Cerna on 10-29-2024 Neutrophils (Bld) [#/Vol] Neutrophils [#/volume] in Blood by Automated count 1.8-7.7 [facility] Neutrophils/100 WBC Auto (Bl d)Ordered By: Will Cerna on 10-29-2024 Neutrophils/100 WBC (Bld) Automated neutrophil % . [facility] No Panel InformationOrdered By: Will Cerna on 10-29-2024 Estimated GFR (CKD-EPI) 5.978 mL/Min [facility] Creatinine Clearance (Chem 13.36 [facility] Nucleated erythrocytes [Pres ence] in Blood by Automated countOrdered By: Will Cerna on 10-29-2024 Nucleated RBC Auto Ql (Bld) Nucleated erythrocytes [Presence] in Blood by Automated count 0-0.5 [facility] Platelet mean volume Auto (B ld) [Entitic vol]Ordered By: Will Cerna on 10-29-2024 Platelet mean volume (Bld) [Entitic vol] Platelet mean volume [Entitic volume] in Blood by Automated count 6.6-10.1 [facility] Platelets Auto (Bld) [#/Vol] Ordered By: Will Cerna on 10-29-2024 Platelets (Bld) [#/Vol] Platelets [#/volume] in Blood by Automated count 150-450 [facility] Potassium [Moles/volume] in Serum or PlasmaOrdered By: Will Cerna on 10-29-2024 Potassium [Moles/Vol] Potassium [Moles/volume] in Serum or Plasma 3.5-5.1 [facility] Protein [Mass/volume] in Ser um or PlasmaOrdered By: Will Cerna on 10-29-2024 Protein [Mass/Vol] Protein [Mass/volume ] in Serum or Plasma 6.4-8.9 [facility] RBC Auto (Bld) [#/Vol]Ordere d By: Will Cerna on 10-29-2024 RBC (Bld) [#/Vol] Erythrocytes [#/volu me] in Blood by Automated count Low 3.90-5.60 [facility] Serum or plasma albumin/glob ulin mass ratioOrdered By: Will Cerna on 10-29-2024 Albumin/Globulin [Mass ratio] Serum or plasma albumin/globulin mass ratio [facility] Serum or plasma anion gap de terminationOrdered By: Will Cerna on 10-29-2024 Anion gap [Moles/Vol] Serum or plasma an ion gap determination High 6.0-15.0 [facility] Sodium [Moles/volume] in Ser um or PlasmaOrdered By: Will Cerna on 10-29-2024 Sodium [Moles/Vol] Sodium [Moles/volume ] in Serum or Plasma 136-145 [facility] Urea nitrogen [Mass/volume] in Serum or PlasmaOrdered By: Will Cerna on 10-29-2024 Urea nitrogen [Mass/Vol] Urea nitrogen [Mass/volume] in Serum or Plasma High 7-25 [facility] WBC Auto (Bld) [#/Vol]Ordere d By: Will Cerna on 10-29-2024 WBC (Bld) [#/Vol] Leukocytes [#/volume ] in Blood by Automated count 4.1-10.5 [facility] X-ray reportOrdered By: Rony Saeed on 10-29-2024 Study [place] [address] XRay Report Signed Patient: Evans Forte MR#: [id number] : 1970 Acct:[id number] Age/Sex: 54 / M ADM Date: 5 Loc: ER Room: Type: [facility] ER Attending Dr: Copies to: Will Cerna [...] Derrick Saeed M.D.10/29/2024 6:14 PM Dictation Location: [place] [address] Transcribed By: CATHLEEN 10/29/241813 Dictated By: Derrick Saeed MD 10/29/241810 Signed By: 10/29/241813 [facility] Work Phone: XR foot RT min 3V*on 025 XR foot RT min 3V* [place] [facility] [place] [address] [place] [address] XRay Report Signed Patient: Evans Forte MR#: [id number] : 1970 Acct:[id number] Age/Sex: 54 / M ADM Date: 10/29/24 Loc: ER Room: Type: [facility] ER Attending Dr: Copies to: Will Cerna [...] DIFFUSE SOFT TISSUE SWELLING Impression dictated by: Derirck Saeed M.D.10/29/2024 6:14 PM Dictation Location: [facility]- Transcribed By: CATHLEEN 10/29/241813 Dictated By: Derrick Saeed MD 10/29/241810 Signed By: 10/29/241813 Normal [facility] 29on 10-17-2024 29 Addended by: MARI HARE on: 10/24/2024 03:37 PM Modules accepted: Orders Normal [facility] BARTONELLA HENSELAE ANTIBODY PANELon 10-17-2024 BARTONELLA HENSELAE IGG <1:64 Normal [facility] Comment on above: Result Comment: INTE [...] developed and its performance characteristics determined by [employer]. It has not been cleared or approved by the [place] Food and Drug Administration. This test was performed in a CLIA certified laboratory and is intended for clinical purposes. Performed By: #### L [id number] ####[email or web address] [address] BARTONELLA HENSELAE IGM < 1:16 Normal [facility] Comment on above: Result Comment: INTE [...] developed and its performance characteristics determined by [employer]. It has not been cleared or approved by the [place] Food and Drug Administration. This test was performed in a CLIA certified laboratory and is intended for clinical purposes. Performed By: [facility] [address] [place] [address] Cable Dispatcher: Aristeo Salgado MD, PhD CLIA Number: [id number] Performed By: #### L [id number] ####[email or web address] [address] CHLAMYDIA TRACHOMATIS AND NE ISSERIA GONORRHEA, TMAon 10-17-2024 CHLAMYDIA TRACHOMATIS DNA PROBE (PRESENCE) IN UNSP SPEC Negative Normal Negative [facility] Comment on above: Result Comment: No C hlamydia trachomatis rRNA Detected. The Aptima Combo 2 Assay is a FDA approved target amplification nucleic acid probe test that utilizes target capture for the in vitro qualitative detection and differentiation of ribosomal RNA (rRNA) from Chlamydia trachomatis (CT) and/or Neisseria gonorrhoeae (GC) to aid the diagnosis of chlamydial and/or gonococcal urogenital disease using the Princeton System. The Aptima Combo 2 Assay involves target capture, target amplification by Halal Butcher-Mediated Amplification (TMA), and the detection of the amplification products (amplicon) by the Hybridization Protection Assay (HPA). The internal process controls of the Princeton System monitor the target capture, amplification, and detection steps of the assay, this is not intended to control for sampling adequacy. Performed By: #### L [id number] ####[facility] ([facility]AKER)[address] [place] [address] NEISSERIA GONORRHOEAE DNA PROBE (PRESENCE) IN UNSP SPEC Negative Normal Negative [facility] Comment on above: Result Comment: No N eisseria gonorrhoeae rRNA Detected. The Aptima Combo 2 Assay is a FDA approved target amplification nucleic acid probe test that utilizes target capture for the in vitro qualitative detection and differentiation of ribosomal RNA (rRNA) from Chlamydia trachomatis (CT) and/or Neisseria gonorrhoeae (GC) to aid the diagnosis of chlamydial and/or gonococcal urogenital disease using the Princeton System. The Aptima Combo 2 Assay involves target capture, target amplification by Halal Butcher-Mediated Amplification (TMA), and the detection of the amplification products (amplicon) by the Hybridization Protection Assay (HPA). The internal process controls of the Princeton System monitor the target capture, amplification, and detection steps of the assay, this is not intended to control for sampling adequacy. Performed By: #### L [id number] ####[facility] ([facility]AKER)[address] [place] [address] HISTOPLASMA ANTIGEN, URINEon 10-17-2024 HISTOPLASMA ANTIGEN URINE INTERP Not detected Normal Not Detected [facility] Comment on above: Result Comment: INTE [...] developed and its performance characteristics determined by [employer]. It has not been cleared or approved by the U.S. Food and Drug Administration. This test was performed in a CLIA-certified laboratory and is intended for clinical purposes. Performed By: [facility] [address] [place] [address] Cable Dispatcher: Aristeo Salgado MD, PhD CLIA Number: [id number] Performed By: #### L [id number] #### [facility] ([facility]) [address] [place] [address] HISTOPLASMA ANTIGEN URINE QUANT Not detected Normal [facility] Comment on above: Performed By: #### L [id number] #### [facility] ([facility]) [address] [place] [address] HIV COMBO 4Gon 10-17-2024 HIV COMBO 4G Negative Normal Negative [facility] Comment on above: Performed By: #### L [id number] #### [facility] ([facility]) [address] [place] [address] Office Visiton 10-17-2024 Follow-up visit [id number] Evans Forte 1970 M Date Provider Department Center 10/17/2024 JOY L[facility]ONS [facility] WOUND [facility] Family History Problem Relation [...] Grandmother Daughter Father's Brother Alive Level of Service:[address] [place] OFFICE/OUTPATIENT NEW MODERATE MDM 45 MINUTES Normal [facility] Follow-up visit [id number] Evans Forte 1970 M Date Provider Department Center 10/17/2024 FAUSTINO GUZMÁN [facility] INF [facility] Family History Problem [...] Grandmother Daughter Father's Brother Alive Level of Service:54904 [place] OFFICE/OUTPATIENT ESTABLISHED LOW MDM 20 MIN Normal [facility] Orders Onlyon 10-17-2024 Orders Only [id number] Evans Forte 1970 M Date Provider Department Center 10/17/2024 MARIE LOZA [facility] DERM [facility] Family History Problem [...] Maternal Grandmother Daughter Father's Brother Alive Normal [facility] RPRon 10-17-2024 REAGIN AB PRESENCE IN SERUM BY RPR Non-Reactive Normal Nonreactive [facility] Comment on above: Performed By: #### L [id number] ####[facility] (SAS[facility])[address] [place] [address] Provider Orderson 09-25-2024 Provider Orders [id number] OTGTIFF [facility] Orders Onlyon 09-14-2024 Orders Only [id number] Evans Forte 1970 M Date Provider Department Center 09/14/2024 FAUSTINO GUZMÁN [facility] INF [facility] Family History Problem [...] Maternal Grandmother Daughter Father's Brother Alive Normal [facility] Office Visiton 09-05-2024 Follow-up visit [id number] Evans Forte 1970 M Date Provider Department Center 09/05/[address] [facility] SURG Second Fl Family History Problem [...] Grandmother Daughter Father's Brother Alive Level of Service:12404 [place] OFFICE/OUTPATIENT ESTABLISHED MDM 10 MIN Reason for Visit and Comments: Post-op [483] - Evans is here today for post op visit: enlarged lymph node, s/p 08/22/24 excisional lymph node biopsy Normal [facility] Basic Metabolic Panelon 08-07 Anion gap [Moles/Vol] 19.7 mmol/L High 6.0-15.[address] [facility] Comment on above: Performed By: #### C BC, ESR, BMP, CRP #### [facility] [address] [place] [id number] [place] Calcium [Mass/Vol] 9.6 mg/dL Normal 8.6-10.3 [facility] Comment on above: Performed By: #### C BC, ESR, BMP, CRP #### [facility] [address] [place] [address] [place] Chloride [Moles/Vol] 98 mmol/L Normal 98-107 The [facility] Comment on above: Performed By: #### C BC, ESR, BMP, CRP #### [address] CO2 [Moles/Vol] 26.6 mmol/L Normal 21.0-31.0 [facility] Comment on above: Performed By: #### C BC, ESR, BMP, CRP #### [address] Creatinine [Mass/Vol] 5.94 mg/dL High 0.70-1.30 The [facility] Comment on above: Performed By: #### C BC, ESR, BMP, CRP #### [address] Creatinine Clr Calc Pharmacy 21.80 Normal [facility] Comment on above: Result Comment: PERF ORMED BY: [place] [address] PATHOLOGIST ENGINEER [employer] KIM ELLIOTT M.D. Performed By: #### C BC, ESR, BMP, CRP #### [address] Estimated GFR 10.609 mL/Min Normal [facility] Comment on above: Performed By: #### C BC, ESR, BMP, CRP #### [address] Glucose [Mass/Vol] 135 mg/dL High 70-100 [facility] Comment on above: Result Comment: [place] Glucose Reference Range is dependent on time and content of last meal. Glucose of more than 200 mg/dL in a nonstressed, ambulatory subject supports the diagnosis of Diabetes Mellitus. ADA recommended reference range Performed By: #### C BC, ESR, BMP, CRP #### [address] Potassium [Moles/Vol] 4.3 mmol/L Normal 3.5-5.1 The [facility] Comment on above: Performed By: #### C BC, ESR, BMP, CRP #### [address] [place] [address] [place] Sodium [Moles/Vol] 140 mmol/L Normal 136-145 The [facility] Comment on above: Performed By: #### C BC, ESR, BMP, CRP #### [facility] [address] Urea nitrogen [Mass/Vol] 54 mg/dL High 7-25 The [facility] Comment on above: Performed By: #### C BC, ESR, BMP, CRP #### [facility] [address] Basophils Auto (Bld) [#/Vol] Ordered By: Delano Mondragon on 08-29-2024 Basophils (Bld) [#/Vol] Automated basophil count 0.0-0.2 [facility] Basophils/100 WBC Auto (Bld) Ordered By: Delano Mondragon on 08-29-2024 Basophils/100 WBC (Bld) Automated basophil % . [facility] Calcium [Mass/volume] in Ser um or PlasmaOrdered By: Delano Mondragon on 08-29-2024 Calcium [Mass/Vol] Calcium [Mass/volume ] in Serum or Plasma 8.6-10.3 [facility] Carbon dioxide, total [Moles /volume] in Serum or PlasmaOrdered By: Delano Mondragon on 08-29-2024 CO2 [Moles/Vol] Carbon dioxide, tota l [Moles/volume] in Serum or Plasma 21.0-31.0 [facility] Chloride [Moles/volume] in S james or PlasmaOrdered By: Delano Mondragon on 08-29-2024 Chloride [Moles/Vol] Chloride [Moles/vol ume] in Serum or Plasma 98-107 [facility] Complete Blood Count Auto Di ffon 08-29-2024 Basophils (Bld) [#/Vol] 0.0 10*3/uL Normal 0.0-0.2 [facility] Comment on above: Result Comment: PERF ORMED BY: [place] [address] PATHOLOGIST ENGINEER [employer] KIM ELLIOTT M.D. Performed By: #### C BC, BMP, PT, PTT #### [place] [address] [place] Basophils/100 WBC (Bld) 0.3 % Normal . [facility] Comment on above: Performed By: #### C BC, BMP, PT, PTT #### [address] Eosinophils (Bld) [#/Vol] 0.5 10*3/uL High 0.0-0.45 [facility] Comment on above: Performed By: #### C BC, BMP, PT, PTT #### [address] Eosinophils/100 WBC (Bld) 5.2 % Normal . [facility] Comment on above: Performed By: #### C BC, BMP, PT, PTT #### [address] Erythrocyte distribution width (RBC) [Ratio] 15.2 % High 12.0-14.8 [facility] Comment on above: Performed By: #### C BC, BMP, PT, PTT #### [address] Hematocrit (Bld) [Volume fraction] 36.0 % Low 38.8-50.0 [facility] Comment on above: Performed By: #### C BC, BMP, PT, PTT #### [address] Hemoglobin (Bld) [Mass/Vol] 12.0 g/dL Low 13.0-17.0 [facility] Comment on above: Performed By: #### C BC, BMP, PT, PTT #### [place] [address] [place] Lymphocytes (Bld) [#/Vol] 2.6 10*3/uL Normal 1.00-4.8 [facility] Comment on above: Performed By: #### C BC, BMP, PT, PTT #### [place] [address] [place] Lymphocytes/100 WBC (Bld) 26.1 % Normal . [facility] Comment on above: Performed By: #### C BC, BMP, PT, PTT #### [address] MCH (RBC) [Entitic mass] 31.3 pg Normal 27.5-35.2 [facility] Comment on above: Performed By: #### C BC, BMP, PT, PTT #### [address] MCV (RBC) [Entitic vol] 93.5 fL Normal 83.5-101 [facility] Comment on above: Performed By: #### C BC, BMP, PT, PTT #### [address] Mean Corpuscular HGB Conc 33.5 g/dL Normal 32.5-35.6 [facility] Comment on above: Performed By: #### C BC, BMP, PT, PTT #### [address] Monocytes (Bld) [#/Vol] 0.8 10*3/uL Normal 0.0-0.8 [facility] Comment on above: Performed By: #### C BC, BMP, PT, PTT #### [address] Monocytes/100 WBC (Bld) 15.54 % Normal 0.00-20.00 [facility] Comment on above: Performed By: #### C BC, BMP, PT, PTT #### [address] Monocytes/100 WBC (Bld) 8.3 % Normal . [facility] Comment on above: Performed By: #### C BC, BMP, PT, PTT #### [address] Neutrophils (Bld) [#/Vol] 5.9 10*3/uL Normal 1.8-7.7 [facility] Comment on above: Performed By: #### C BC, BMP, PT, PTT #### [address] Neutrophils/100 WBC (Bld) 60.1 % Normal . [facility] Comment on above: Performed By: #### C BC, BMP, PT, PTT #### [facility] [address] NRBC% 0.0 /100{WBC} Normal 0-0.5 The [facility] Comment on above: Performed By: #### C BC, BMP, PT, PTT #### [address] Platelet mean volume (Bld) [Entitic vol] 7.0 fL Normal 6.6-10.1 The [facility] Group Comment on above: Performed By: #### C BC, BMP, PT, PTT #### [address] Platelets (Bld) [#/Vol] 289 10*3/uL Normal 150-450 [facility] Comment on above: Performed By: #### C BC, BMP, PT, PTT #### [address] RBC (Bld) [#/Vol] 3.85 10*6/uL Low 3.90-5.[address] [facility] Comment on above: Performed By: #### C BC, BMP, PT, PTT #### [address] WBC (Bld) [#/Vol] 9.9 10*3/uL Normal 4.1-10.5 [facility] Comment on above: Performed By: #### C BC, BMP, PT, PTT #### [address] Creatinine [Mass/volume] in Serum or PlasmaOrdered By: Delano Mondragon on 08-29-2024 Creatinine [Mass/Vol] Creatinine [Mass/volume] in Serum or Plasma High 0.70-1.30 [facility] Eosinophils Auto (Bld) [#/Vo l]Ordered By: Delano Mondragon on 08-29-2024 Eosinophils (Bld) [#/Vol] Automated eosinophil count High 0.0-0.45 [facility] Eosinophils/100 WBC Auto (Bl d)Ordered By: Delano Mondragon on 08-29-2024 Eosinophils/100 WBC (Bld) Automated eosinophil % . [facility] Erythrocyte distribution wid th Auto (RBC) [Ratio]Ordered By: Delano Mondragon on 08-29-2024 Erythrocyte distribution width (RBC) [Ratio] Erythrocyte distribution width [Ratio] by Automated count High 12.0-14.8 [facility] Glucose [Mass/volume] in Ser um or PlasmaOrdered By: Delano Mondragon on 08-29-2024 Glucose [Mass/Vol] Glucose [Mass/volume ] in Serum or Plasma High 70-100 [facility] Comment on above: ADA recommended refe rence rangeRandom Glucose Reference Range is dependent on time and content of last meal. Glucose of more than 200 mg/dL in a nonstressed, ambulatory subject supports the diagnosis of Diabetes Mellitus. Hematocrit Auto (Bld) [Volum e fraction]Ordered By: Delano Mondragon on 08-29-2024 Hematocrit (Bld) [Volume fraction] Hematocrit [Volume Fraction] of Blood by Automated count Low 38.8-50.0 [facility] Hemoglobin [Mass/volume] in BloodOrdered By: Delano Mondragon on 08-29-2024 Hemoglobin (Bld) [Mass/Vol] Hemoglobin [Mass/volume] in Blood Low 13.0-17.0 [facility] INR in Platelet poor plasma by Coagulation assayOrdered By: Delano Mondragon on 08-29-2024 INR Coag (PPP) [Relative time] INR in Platelet poor plasma by Coagulation assay [facility] Comment on above: INR Therapeutic Rang e [...] erythrocytes in Blood by Automated coun 4.1-10.5 [facility] Lymphocytes Auto (Bld) [#/Vo l]Ordered By: Delano Mondragon on 08-29-2024 Lymphocytes (Bld) [#/Vol] Lymphocytes [#/volume] in Blood by Automated count 1.00-4.8 [facility] Lymphocytes/100 WBC Auto (Bl d)Ordered By: Delano Mondragon on 08-29-2024 Lymphocytes/100 WBC (Bld) Lymphocytes/100 leukocytes in Blood by Automated count . [facility] MCH Auto (RBC) [Entitic mass ]Ordered By: Delano Mondragon on 08-29-2024 MCH (RBC) [Entitic mass] MCH [Entitic mass] by Automated count 27.5-35.2 [facility] MCHC Auto (RBC) [Mass/Vol]Or dered By: Delano Mondragon on 08-29-2024 MCHC (RBC) [Mass/Vol] MCHC [Mass/volume] by Automated count 32.5-35.6 [facility] MCV Auto (RBC) [Entitic vol] Ordered By: Delano Mondragon on 08-29-2024 MCV (RBC) [Entitic vol] MCV [Entitic volume] by Automated count 83.5-101 [facility] Monocyte distribution width [Entitic volume] in Blood by AutomatedOrdered By: Delano Mondragon on 08-29-2024 Monocyte distribution width Auto (Bld) [Entitic vol] Monocyte distribution width [Entitic volume] in Blood by Automated 0.00-20.00 [facility] Monocytes Auto (Bld) [#/Vol] Ordered By: Delano Mondragon on 08-29-2024 Monocytes (Bld) [#/Vol] Automated blood monocyte count 0.0-0.8 [facility] Monocytes/100 WBC Auto (Bld) Ordered By: Delano Mondragon on 08-29-2024 Monocytes/100 WBC (Bld) Automated monocyte % . [facility] Neutrophils Auto (Bld) [#/Vo l]Ordered By: Delano Mondragon on 08-29-2024 Neutrophils (Bld) [#/Vol] Neutrophils [#/volume] in Blood by Automated count 1.8-7.7 [facility] Neutrophils/100 WBC Auto (Bl d)Ordered By: Delano Mondragon on 12-24-2024 Neutrophils/100 WBC (Bld) Automated neutrophil % . [facility] No Panel InformationOrdered By: Delano Mondragon on 08-29-2024 Estimated GFR (CKD-EPI) 10.609 mL/Min [facility] Creatinine Clearance (Chem 21.80 [facility] Nucleated erythrocytes [Pres ence] in Blood by Automated countOrdered By: Delano Mondragon on 08-29-2024 Nucleated RBC Auto Ql (Bld) Nucleated erythrocytes [Presence] in Blood by Automated count 0-0.5 [facility] Partial Thromboplastin Timeo n 08-29-2024 aPTT Coag (Bld) [Time] 36.5 s Normal 25.1-36.5 Th e [facility] Comment on above: Result Comment: A he matocrit value greater than 55% may lead to inaccurate results in coagulation testing. Patients having hematocrit values >55% require a special collection tube for coagulation studies. Please contact the laboratory at [phone] for redraw instructions. PERFORMED BY: [place] [address] PATHOLOGIST ENGINEER [employer] KIM ELLIOTT M.D. Performed By: #### C BC, ESR, BMP, CRP #### [address] Platelet mean volume Auto (B ld) [Entitic vol]Ordered By: Delano Mondragon on 08-29-2024 Platelet mean volume (Bld) [Entitic vol] Platelet mean volume [Entitic volume] in Blood by Automated count 6.6-10.1 [facility] Platelets Auto (Bld) [#/Vol] Ordered By: Delano Mondragon on 08-29-2024 Platelets (Bld) [#/Vol] Platelets [#/volume] in Blood by Automated count 150-450 [facility] Potassium [Moles/volume] in Serum or PlasmaOrdered By: Delano Mondragon on 08-29-2024 Potassium [Moles/Vol] Potassium [Moles/volume] in Serum or Plasma 3.5-5.1 [facility] Prothrombin Time INRon 08-29 INR Coag (PPP) [Relative time] 1.0 {INR} Normal [facility] Comment on above: [...] - 4.5 Performed By: #### C BC, ESR, BMP, CRP #### [facility] [address] [id number] [facility] PT Coag (PPP) [Time] 12.0 s Normal 9.0-12.9 [facility] Comment on above: Result Comment: A he matocrit value greater than 55% may lead to inaccurate results in coagulation testing. Patients having hematocrit values >55% require a special collection tube for coagulation studies. Please contact the laboratory at [phone] for redraw instructions. Performed By: #### C BC, ESR, BMP, CRP #### [facility] [address] [place] [address] [facility] Prothrombin time (PT)Ordered By: Dleano Mondragon on 08-29-2024 PT Coag (PPP) [Time] Prothrombin time (PT) 9.0- 12.9 [facility] Comment on above: A hematocrit value g reater than 55% may lead to inaccurate results in coagulation testing. Patients having hematocrit values >55% require a special collection tube for coagulation studies. Please contact the laboratory at [phone] for redraw instructions. RBC Auto (Bld) [#/Vol]Ordere d By: Delano Mondragon on 08-29-2024 RBC (Bld) [#/Vol] Erythrocytes [#/volu me] in Blood by Automated count Low 3.90-5.60 [facility] Serum or plasma anion gap de terminationOrdered By: Delano Mondragon on 08-29-2024 Anion gap [Moles/Vol] Serum or plasma an ion gap determination High 6.0-15.0 [facility] Sodium [Moles/volume] in Ser um or PlasmaOrdered By: Delano Mondragon on 08-29-2024 Sodium [Moles/Vol] Sodium [Moles/volume ] in Serum or Plasma 136-145 [facility] US venous duplex LE RTon US venous duplex LE RT [facility] Main [place] [address] [place] [address] Ultrasound Report Signed Patient: Evans Forte MR#: [id number] : 1970 Acct:[id number] Age/Sex: 54 / M ADM Date: 08/28/24 Loc: ER Room: Type: [facility] ER Attending Dr: Ordering Provider: Delano Mondragon [...] Ramirez Jean M.D.08/29/2024 10:46 AM Dictation Location: [place] [address] Tech: Idania Waite Transcribed By: CATHLEEN 08/29/24 1046 Dictated By: Ramirez Jean MD 08/29/24 1045 Signed By: 08/29/24 1046 Normal [facility] Urea nitrogen [Mass/volume] in Serum or PlasmaOrdered By: Delano Mondragon on 08-29-2024 Urea nitrogen [Mass/Vol] Urea nitrogen [Mass/volume] in Serum or Plasma High 7-25 [facility] WBC Auto (Bld) [#/Vol]Ordere d By: Delano Mondragon on 08-29-2024 WBC (Bld) [#/Vol] Leukocytes [#/volume ] in Blood by Automated count 4.1-10.5 [facility] aPTT in Platelet poor plasma by Coagulation assayOrdered By: Delano Mondragon on 08-29-2024 aPTT Coag (PPP) [Time] Activated partial thromboplastin time (aPTT) in platelet poor plasma by coagulation a 25.1-36.5 [facility] Comment on above: A hematocrit value g reater than 55% may lead to inaccurate results in coagulation testing. Patients having hematocrit values >55% require a special collection tube for coagulation studies. Please contact the laboratory at [phone] for redraw instructions. BONE MARROW CELL DIFFERENTIA Nick 08-22-2024 BM TOTAL CELLS COUNTED Normal [facility] Comment on above: Order Comment: See B one Marrow Exam Report Performed By: #### L [id number] ####[facility] ([employer])[address] [place] [address] BONE MARROW EXAMon LAB AP ANCILLARY RESULTS Normal [facility] Comment on above: Result Comment: Anci llary studies were completed at [facility]: Chromosomes, hematologic, bone marrow: - 46,XY[20]. Corrected result: Previously reported on 09/01/2024 at 1650 EST. Performed By: #### L [id number] ####[facility] ([employer])[address] [place] [address] LAB AP ASPIRATE SMEAR Normal [facility] Comment on above: Result Comment: The aspirate smears are adequately spiculate. The lbkfxrr-gm-hjliuntyt ratio is normal. Cells of the myeloid [...] cells counted). Performed By: #### L [id number] ####[facility] ([employer])[address] [place] [address] LAB AP ASR DISCLAIMER The interpretation of [...] Clinical Laboratory Improvement Amendments of 1998. Normal [facility] Comment on above: Performed By: #### L AB6 ####[facility] (BEAKER)[address] [place] [address] LAB AP CASE REPORT Normal [facility] Comment on above: Result Comment: Bone Marrow Case: [id number] Authorizing Provider: Sivan Keller MD Collected: 08/22/2024 1019 Ordering Location: [facility] CT Imaging Received: 08/22/2024 1214 Pathologist: Jade Esquivel MD Specimens: A) - Bone Marrow Clot B) - Bone Marrow Biopsy C) - Bone Marrow Aspirate Performed By: #### L [id number] ####[facility] (BEAKER)[address] [place] [address] LAB AP CBC AND DIFFERENTIAL Normal [facility] Comment on above: Result Comment: Comp [...] unremarkable morphology. Performed By: #### L [id number] ####[facility] ([facility])[address] [place] [address] LAB AP CLINICAL INFORMATION Order Diagnoses Normal [facility] Comment on above: Result Comment: R59. 0 - Localized enlarged lymph nodes [ICD-10-CM] R59.0 - Lymphadenopathy, inguinal [ICD-10-CM] R59.0 - Pelvic lymphadenopathy [ICD-10-CM] R93.89 - Nonspecific abnormal findings on diagnostic imaging [ICD-10-CM] Performed By: #### L AB6 ####[facility] ([facility])[address] [place] [address] LAB AP CLOT SECTION Normal [facility] Comment on above: Result Comment: The aspirate clot section reveals adequate marrow particles. Marrow cellularity and composition are similar to that identified in the core biopsy. There is a single, well-circumscribed lymphoid aggregate identified. Performed By: #### L [id number] ####[facility] ([facility])[address] [place] [address] LAB AP CORE BIOPSY Normal [facility] Comment on above: Result Comment: The fragmented core biopsy reveals 0.8 cm of evaluable marrow with moderate aspiration artifact. Marrow cellularity approximates 80%, hypercellular for age. Maturing trilineage hematopoiesis is well represented. No atypical proliferation is identified. Performed By: #### L [id number] ####[facility] ([facility])[address] [place] [address] LAB AP CORRECTION HISTORY Karyotype analysis completed; no change in diagnosis. Normal [facility] Comment on above: Performed By: #### L [id number] ####[facility] ([facility])[address] [place] [address] LAB AP DIAGNOSIS COMMENT Normal [facility] Comment on above: Result Comment: Cecilia ected result: Previously reported on 09/01/2024 at 1650 EST. Performed By: #### L [id number] ####[facility] ([facility])[address] [place] [address] LAB AP FLOW CYTOMETRY SUMMARY Normal [facility] Comment on above: Result Comment: Flow cytometry studies were completed at [facility]: Bone marrow, flow cytometric immunophenotyping: - Normal immunophenotyping results. No monotypic B-cell population or increase in blasts identified. Performed By: #### L [id number] ####[facility] ([facility])[address] [place] [address] LAB AP GROSS DESCRIPTION Normal [facility] Comment on above: Result Comment: A. B one Marrow Clot. Received in formalin is a reddish-brown blood clot measuring 3.0 x 2.0 x 0.2 cm. It is submitted for routine histology in one cassette. B. Bone Marrow Biopsy. Received in formalin is a hard, reddish-bruns, cylindrical fragment of tissue measuring 1.5 x 0.2 x 0.2 cm. The specimen is submitted for decalcification and subsequent microscopy. C. Bone Marrow Aspirate. Received are multiple prepared glass slides for [employer] staining. One slide is stained for iron. Performed By: #### L AB6 ####[facility] ([facility])[address] [place] [address] LAB AP REPORT FINAL DIAGNOSIS NARRATIVE Normal [facility] Comment on above: Result Comment: [...] 1650 EST. Performed By: #### L [id number] ####[facility] ([facility])[address] [place] [address] LAB AP SPECIAL STAINS Normal [facility] Comment on above: Result Comment: Iron stains were completed on the aspirate clot section, core biopsy and aspirate smear. Storage iron is decreased; no ring sideroblasts are identified. Performed By: #### L [id number] ####[facility] ([facility])[address] [place] [address] CBC WITH AUTO DIFFERENTIALon 12-17-2024 Basophils (Bld) [#/Vol] 0.06 10*3/uL Normal 0.00-0.20 [facility] Comment on above: Performed By: #### L [id number] #### [facility] (BEAKER) [address] [place] [address] Basophils/100 WBC (Bld) 0.6 % Normal 0.0-1.0 [facility] Comment on above: Performed By: #### L [id number] #### [facility] [address] [place] [address] Eosinophils (Bld) [#/Vol] 0.53 10*3/uL High 0.00-0.50 [facility] Comment on above: Performed By: #### L [id number] #### [facility] ([facility]) [address] [place] [address] Eosinophils/100 WBC (Bld) 5.5 % Normal 0.0-6.0 [facility] Comment on above: Performed By: #### L [id number] #### [facility] ([facility] [facility]) [address] [place] [place] [address] Erythrocyte distribution width (RBC) [Ratio] 14.5 % Normal 11.5-15.0 [facility] Comment on above: Performed By: #### L [id number] #### [facility] ([facility]) [address] [place] [address] ERYTHROCYTE MEAN CORPUSCULAR HEMOGLOBIN CONCENTRATION (G/DL) BY AUTOMATED 32.8 g/dL Normal 32.0-35.0 [facility] Comment on above: Performed By: #### L [id number] #### [facility] ([facility]) [address] [place] [address] Hematocrit (Bld) [Volume fraction] 36.9 % Low 39.0-55.0 [facility] Comment on above: Performed By: #### L [id number] #### [facility] ([facility]) [address] [place] [address] Hemoglobin (Bld) [Mass/Vol] 12.1 g/dL Low 13.0-17.0 [facility] Comment on above: Performed By: #### L [id number] #### [facility] ([facility]) [address] [place] [address] Immature granulocytes (Bld) [#/Vol] 0.05 10*3/uL Normal 0.00-0.20 [facility] Comment on above: Performed By: #### L [id number] #### [facility] ([facility]) [address] [place] [address] Immature granulocytes/100 WBC (Bld) 0.5 % Normal 0.0-1.0 [facility] Comment on above: Performed By: #### L [id number] #### [facility] ([facility]) [address] [place] [address] Lymphocytes (Bld) [#/Vol] 1.77 10*3/uL Normal 1.20-4.00 [facility] Comment on above: Performed By: #### L [id number] #### [facility] ([facility]) [address] [place] [address] Lymphocytes/100 WBC (Bld) 18.3 % Low 20.0-45.0 [facility] Comment on above: Performed By: #### L [id number] #### [facility] ([facility]) [address] [place] [address] MCH (RBC) [Entitic mass] 30.9 pg Normal 27.0-33.0 [facility] Comment on above: Performed By: #### L [id number] #### [facility] ([facility]) [address] [place] [address] MCV (RBC) [Entitic vol] 94.4 fL Normal 82.0-98.0 [facility] Comment on above: Performed By: #### L [id number] #### [facility] ([facility]) [address] [place] [address] Monocytes (Bld) [#/Vol] 0.65 10*3/uL Normal 0.10-1.00 [facility] Comment on above: Performed By: #### L [id number] #### [facility] [address] [place] [address] Monocytes/100 WBC (Bld) 6.7 % Normal 5.0-12.0 [facility] Comment on above: Performed By: #### L [id number] #### [facility] ([facility]) [address] [place] [address] Neutrophils (Bld) [#/Vol] 6.60 10*3/uL Normal 1.60-7.60 [facility] Comment on above: Performed By: #### L [id number] #### [facility] ([facility]) [address] [place] [address] Neutrophils/100 WBC (Bld) 68.4 % Normal 40.0-72.0 [facility] Comment on above: Performed By: #### L [id number] #### [facility] ([facility]) [address] [place] [address] NRBC (PER 100 WBCS) BY AUTOMATED COUNT 0.0 % Normal 0 [facility] Comment on above: Performed By: #### L [id number] #### [facility] ([facility]) [address] [place] [address] PLATELETS (10*3/UL) IN BLOOD AUTOMATED COUNT 227 10*3/uL Normal 150-400 [facility] Comment on above: Performed By: #### L [id number] #### [facility] ([facility]) [address] [place] [address] RBC (Bld) [#/Vol] 3.91 10*6/uL Low 4.20-5.70 [facility] Comment on above: Performed By: #### L [id number] #### [facility] [address] [place] [address] WBC (Bld) [#/Vol] 9.66 10*3/uL Normal 4.00-10.60 [facility] Comment on above: Performed By: #### L [id number] #### [facility] ([facility]) [address] [place] [address] HISTOLOGY - TISSUE EXAMon LAB AP ADDENDUM 1 Normal [facility] Comment on above: Order Comment: Pre-o p diagnosis:Enlarged lymph node [R59.9] Result Comment: Stai n for Treponema pallidum is negative. Addendum electronically signed by Jade Esquivel MD on 09/13/2024 at 10:58 AM Performed By: #### L [id number] ####[facility] ([facility])[address] [place] [address] LAB AP ASR DISCLAIMER The interpretation of [...] the Clinical Laboratory Improvement Amendments of 1998. [facility] Comment on above: Order Comment: Pre-o p diagnosis:Enlarged lymph node [R59.9] Performed By: #### L [id number] ####[facility] ([facility])[address] [place] [address] LAB AP CASE REPORT Normal [facility] Comment on above: Order Comment: Pre-o p diagnosis:Enlarged lymph node [R59.9] Result Comment: Surg ical Pathology Case: [id number] Authorizing Provider: Erick Carter MD Collected: 08/22/2024 1656 Ordering Location: [facility] Main Operating Room Received: 08/24/2024 0812 Pathologist: Jade Esquivel MD Specimens: A) - Lymph Node, right groin, frozen section B) - Lymph Node, Right groim, for permanent Performed By: #### L [id number] ####[facility] ([facility])[address] [place] [address] LAB AP CLINICAL INFORMATION Normal [facility] Comment on above: Order Comment: Pre-o p diagnosis:Enlarged lymph node [R59.9] Result Comment: Post -Op Diagnoses R59.9 - Enlarged lymph node [ICD-10-CM] R59.0 - Inguinal lymphadenopathy [ICD-10-CM] Performed By: #### L [id number] ####[facility] ([facility])[address] [place] [address] LAB AP DIAGNOSIS COMMENT The morphologic features of the lymph node are favored to represent a reactive etiology; there is no evidence of malignancy in the lymph node submitted. A Treponema pallidum stain is pending; results will be reported in an addendum. Normal [facility] Comment on above: Order Comment: Pre-o p diagnosis:Enlarged lymph node [R59.9] Performed By: #### L [id number] ####[facility] ([facility])[address] [place] [address] LAB AP FLOW CYTOMETRY SUMMARY Normal [facility] Comment on above: Order Comment: Pre-o p diagnosis:Enlarged lymph node [R59.9] Result Comment: Flow cytometry studies were completed at [facility] Laboratories: Leukemia/lymphoma phenotyping evaluation by flow cytometry: - No abnormal myeloid, B-cell, T-cell, NK-cell or plasma cell population is identified. Performed By: #### L [id number] ####[facility] ([facility] [place] [address] LAB AP GROSS DESCRIPTION A. Lymph Node. Normal [facility] Comment on above: Order Comment: Pre-o p diagnosis:Enlarged lymph node [R59.9] Result Comment: Rece ived fresh labeled Evans Laurenti, Lymph node are two soft tissue fragments, [...] is entirely submitted in 4 cassettes. Lisette Mary Anne, Pathologists' Supervisor Loading B. Lymph Node. Received in formalin labeled Evans Shen Jann, Right groin is a burns rubbery lobulated bulky portion of partially shaggy tissue, 2.8 x 2 x 1.7 cm. The specimen is serially sectioned to reveal burns finely granular uniform cut surfaces and is entirely submitted in 6 cassettes. Lisette North, Pathologists' Supervisor Loading Performed By: #### L [id number] ####[facility] ([facility])[address] [place] [address] LAB AP MICROSCOPIC DESCRIPTION Microscopic examination performed. [facility] Comment on above: Order Comment: Pre-o p diagnosis:Enlarged lymph node [R59.9] Performed By: #### L [id number] ####[facility] ([facility])[address] [place] [address] LAB AP REPORT FINAL DIAGNOSIS NARRATIVE [facility] Comment on above: Order Comment: Pre-o p diagnosis:Enlarged lymph node [R59.9] Result Comment: A-B. Lymph node, right groin, excision: - Lymph node with reactive follicular hyperplasia, plasmacytosis and focally thickened capsule. - No evidence of malignancy. - See comment. Performed By: #### L [id number] ####[facility] (BEAKER)[address] [place] [address] HPon 08-22-2024 HP H&P reviewed. The patient was examined and there are no changes to the H&P. Normal [facility] Labon 08-22-2024 Lab [id number] Evans Forte 1970 M Date Provider Department Center 08/22/2024 2245-[facility] OPD LAB RESOURCE [facility] OPD OR Medical C Family History Problem Relation Age [...] Maternal Grandmother Daughter Father's Brother Alive Normal [facility] OPNOTEon 08-22-2024 OPNOTE EXCISIONAL RIGHT TYRONE IN LYMPH NODE BIOPSY (R) Operative Note Date: 08/22/2024 Location: [facility] OR Name: Evans Forte, : 1970, [...] FLOW CYTOMETRY Erick Carter MD 08/22/241655 Routine [id number] Description: right groin flow cytometry A Lymph Node Tissue HISTOLOGY - TISSUE EXAM Erick Carter MD 08/22/241655 Routine Description: right groin permanent Staff: Burlap Man: Aristeo Lisa RN Scrub Person: Waldemar Kelsey [...] count and sponge count were correct. Normal [facility] POCT GLUCOSE METER UNSOLICIT ED RESULTSon 08-22-2024 Glucose [Mass/Vol] 97 mg/dL Normal 70-105 [facility] Comment on above: Order Comment: Waive d Testing in the ED is performed under the ED CLIA certificate #[id number]. Result Comment: skir by Performed By: #### L [id number] #### [facility] ([facility]ER) [address] [place] [address] Glucose [Mass/Vol] 115 mg/dL High 70-105 [facility] Comment on above: Order Comment: Waive d Testing in the ED is performed under the ED CLIA certificate #[id number]. Result Comment: dhol as Performed By: #### L [id number] #### [facility] ([facility]ER) [address] [place] [address] PROTIME-INRon 08-22-2024 INR IN PPP BY COAGULATION ASSAY 1.01 Normal 0.90-1.10 [facility] Comment on above: Result Comment: ACCC [...] RANGE. CHEST 1995;108:[id number]. Performed By: #### L [id number] #### [facility] ([facility]) [address] [place] [address] PROTHROMBIN TIME (PT) IN PPP BY COAGULATION ASSAY 13.3 Seconds Normal 12.3-14.8 [facility] Comment on above: Performed By: #### L [id number] #### [facility] ([facility]AKER) [address] [place] [address] Orders Onlyon 08-18-2024 Orders Only [id number] Evans Forte 1970 M Date Provider Department Center 08/18/2024 [facility] Family History Problem Relation Age [...] Maternal Grandmother Daughter Father's Brother Alive Normal [facility] Consulton 08-08-2024 Consult [id number] Evans Forte 1970 M Date Provider Department Center 08/08/[address] [facility] SURG [place] Fl Family History Problem [...] Grandmother Daughter Father's Brother Alive Level of Service:08486 [place] OFFICE/OUTPATIENT NEW LOW MDM 30 MINUTES Reason for Visit and Comments: Consult [484] - Patient is here today for enlarged lymph nodes and is s/p PET scan. Normal [facility] HPon 08-08-2024 HP Subjective Patient ID: [...] skull base to mid thigh FDG Order: [id number] Status: Final result Visible to patient: Yes (seen) Dx: Enlarged lymph nodes; Pre-transplant ... 0 Result Notes Details Reading Physician Reading Date Result Priority Alonso Jaffe MD [phone] 07/31/2024 Routine Narrative & Impression History: Pretransplant [...] CT abdomen pelvis wo renal recipient Order: [id number] Status: Edited Result - FINAL Visible to patient: Yes (seen) Dx: Pre-transplant evaluation for kidney ... 0 Result Notes Details Reading Physician Reading Date Result Priority Alonso Sampson MD [phone] 07/12/2024 Routine Addenda Addendum: Note that there [...] No suspiciou (more content not included)... Normal [facility] 36on 07-31-2024 36 Patient contacted [facility] regarding the results of his PET/CT that [...] verbalized understanding. Maria De Jesus Rutledge RN Normal [facility] POCT GLUCOSE METER UNSOLICIT ED RESULTSon 07-28-2024 Glucose [Mass/Vol] 125 mg/dL High 70-105 [facility] Comment on above: Order Comment: Waive d Testing in the ED is performed under the ED CLIA certificate #[id number]. Result Comment: solange n11 Performed By: #### L [id number] ####[facility] (BEAKER)[address] [place] [address] HPon 07-27-2024 HP History Of Present Illness Evans Forte is [...] a past medical history of Adrenal nodule ([facility]), Anemia, Anxiety, Charcot foot due to diabetes mellitus ([facility]), Chronic sinusitis, COVID-19, Diabetic foot ulcers ([facility]), Diabetic polyneuropathy ([facility]), Diabetic retinopathy ([facility]), ED (erectile dysfunction), ESRD (end stage renal disease) ([facility]) (11/23/2022), GERD (gastroesophageal reflux disease), Glaucoma, History of tobacco use, Hyperlipidemia, Hypertension, Hypogonadism in male, Hypothyroidism, Insomnia, Neuropathy, Obesity, Osteomyelitis of ankle or foot, left, acute ([facility]), Pancreatitis, Past history of chewing tobacco use, Peripheral artery disease ([facility]), Proteinuria, Sleep apnea, Type 2 diabetes mellitus ([facility]), and Vitamin D deficiency. Surgical History He [...] Adhesive tape-silicones, Latex, Vancomycin, Adhesive, Haloperidol, and [place] oil Medications Medications Prior to Admission Medication [...] Constitutional: Appearan (more content not included)... Normal [facility] NURSNOTEon 07-27-2024 NURSNOTE RN educated pt [...] off of unit with all of belongings. [facility] NURSNOTE .dc [facility] Office Visiton 07-25-2024 Follow-up visit [id number] Evans Forte 1970 M Date Provider Department Center 07/25/2024 FAUSTINO GUZMÁN [facility] INF [facility]ick [facility] Family History Problem Relation Age of Onset Breast cancer Mother Comments: age 53, METS to brain Heart disease Father Heart attack Father Comments: age 26 No Known Problems Sister Comments: half-sister Crohn's disease Daughter Comments: perforated bowel Family Status - Relation Status Age at Mother Father Sister Daughter Level of Service:93710 [place] OFFICE/OUTPATIENT NEW LOW MDM 30 MINUTES [facility] Documentationon 07-14-2024 Documentation [id number] Evans Forte 1970 M Date Provider Department Center 07/14/2024 [id number] CINTRON None Family History Problem Relation Age of Onset Breast cancer Mother Comments: age 53, METS to brain Heart disease Father Heart attack Father Comments: age 26 No Known Problems Sister Comments: half-sister Crohn's disease Daughter Comments: perforated bowel Family Status - Relation Status Age at Mother Father Sister Daughter Normal [facility] 36on 07-12-2024 36 TC contacted patient regarding CT results. No answer. Left voicemail. Melinda Hidalgo, JACOB [facility] B-TYPE NATRIURETIC PEPTIDEon 07-11-2024 Natriuretic peptide B (Bld) [Mass/Vol] 43 pg/mL Normal 0-100 [facility] Comment on above: Performed By: #### L [id number] ####[facility] ([facility] [place] [address] BILIRUBIN, DIRECTon 07-11-20 24 Magnesium [Mass/Vol] 0.1 mg/dL Normal 0-0.2 [facility] Comment on above: Performed By: #### L [id number] ####[facility] ([facility])[address] [place] [address] CBC WITH AUTO DIFFERENTIALon 07-11-2024 Basophils (Bld) [#/Vol] 0.08 10*3/uL Normal 0.00-0.20 [facility] Comment on above: Performed By: #### L [id number] ####[facility] ([facility] [place] [address] Basophils/100 WBC (Bld) 1.0 % Normal 0.0-1.0 [facility] Comment on above: Performed By: #### L [id number] ####[facility] (BEAKER)[address] [place] [address] Eosinophils (Bld) [#/Vol] 0.30 10*3/uL Normal 0.00-0.50 [facility] Comment on above: Performed By: #### L [id number] ####[facility] ([facility] [place] [address] Eosinophils/100 WBC (Bld) 3.6 % Normal 0.0-6.0 [facility] Comment on above: Performed By: #### L [id number] ####[facility] (BEAKER)[address] [place] [address] Erythrocyte distribution width (RBC) [Ratio] 14.6 % Normal 11.5-15.0 [facility] Comment on above: Performed By: #### L [id number] ####[facility] (BEAKER)[address] [place] [address] ERYTHROCYTE MEAN CORPUSCULAR HEMOGLOBIN CONCENTRATION (G/DL) BY AUTOMATED 32.8 g/dL Normal 32.0-35.0 [facility] Comment on above: Performed By: #### L [id number] ####[facility] (BEAKER)[address] [place] [address] Hematocrit (Bld) [Volume fraction] 36.3 % Low 39.0-55.0 [facility] Comment on above: Performed By: #### L [id number] ####[facility] (BEAKER)[address] [place], [place] [address] Hemoglobin (Bld) [Mass/Vol] 11.9 g/dL Low 13.0-17.0 [facility] Comment on above: Performed By: #### L [id number] ####[facility] (BEAKER)[address] [place] [address] Immature granulocytes (Bld) [#/Vol] 0.08 10*3/uL Normal 0.00-0.20 [facility] Comment on above: Performed By: #### L [id number] ####[facility] (BEAKER)[address] [place], [place] [address] Immature granulocytes/100 WBC (Bld) 1.0 % Normal 0.0-1.0 [facility] Comment on above: Performed By: #### L [id number] ####[facility] (BEAKER)[address] [place], [place] [address] Lymphocytes (Bld) [#/Vol] 2.21 10*3/uL Normal 1.20-4.00 [facility] Comment on above: Performed By: #### L [id number] ####[facility] (BEAKER)[address] [place], [place] [address] Lymphocytes/100 WBC (Bld) 26.5 % Normal 20.0-45.0 [facility] Comment on above: Performed By: #### L [id number] ####[facility] [place] [address] MCH (RBC) [Entitic mass] 30.1 pg Normal 27.0-33.0 [facility] Comment on above: Performed By: #### L [id number] ####[facility] ([facility])[address] [place] [address] MCV (RBC) [Entitic vol] 91.9 fL Normal 82.0-98.0 [facility] Comment on above: Performed By: #### L [id number] ####[facility] ([facility])[address] [place] [address] Monocytes (Bld) [#/Vol] 0.82 10*3/uL Normal 0.10-1.00 [facility] Comment on above: Performed By: #### L [id number] ####[facility] ([facility])[address] [facility] [place] [address] Monocytes/100 WBC (Bld) 9.8 % Normal 5.0-12.0 [facility] Comment on above: Performed By: #### L [id number] ####[facility] [place] [address] Neutrophils (Bld) [#/Vol] 4.84 10*3/uL Normal 1.60-7.60 [facility] Comment on above: Performed By: #### L [id number] ####[facility] (BEAKER)[address] [place] [address] Neutrophils/100 WBC (Bld) 58.1 % Normal 40.0-72.0 [facility] Comment on above: Performed By: #### L [id number] ####[facility] (BEAKER)[address] [place] [address] NRBC (PER 100 WBCS) BY AUTOMATED COUNT 0.0 % Normal 0 [facility] Comment on above: Performed By: #### L [id number] ####[facility] [place] [address] PLATELETS (10*3/UL) IN BLOOD AUTOMATED COUNT 331 10*3/uL Normal 150-400 [facility] Comment on above: Performed By: #### L [id number] ####[facility] ([facility])[address] [place] [address] RBC (Bld) [#/Vol] 3.95 10*6/uL Low 4.20-5.70 [facility] Comment on above: Performed By: #### L [id number] ####[facility] ([facility])[address] [place] [address] WBC (Bld) [#/Vol] 8.33 10*3/uL Normal 4.00-10.60 [facility] Comment on above: Performed By: #### L [id number] ####[facility] ([facility])[address] [place] [address] COMPREHENSIVE METABOLIC PANE Nick 07-11-2024 Albumin [Mass/Vol] 4.2 g/dL Normal 3.5-5.7 [facility] Comment on above: Performed By: #### L [id number] ####[facility] (AKER)[address] [place] [address] ALP [Catalytic activity/Vol] 115 U/L High 34-104 [facility] Comment on above: Performed By: #### L [id number] ####[facility] (BEAKER)[address] [place] [address] ALT [Catalytic activity/Vol] 12 U/L Normal 7-52 [facility] Comment on above: Performed By: #### L [id number] ####[facility] (BEAKER)[address] [place] [address] Anion gap [Moles/Vol] 14 mmol/L Normal 7-20 [facility] Comment on above: Performed By: #### L [id number] ####[facility] (BEAKER)[address] [place] [address] AST [Catalytic activity/Vol] 8 U/L Low 13-39 [facility] Comment on above: Performed By: #### L [id number] ####[facility] HOSPITAL LAB (BEAKER)[address] [place] [address] Bilirubin [Mass/Vol] 0.5 mg/dL Normal 0.3-1.0 [facility] Comment on above: Performed By: #### L [id number] ####[facility] (BEAKER)[address] [place] [address] Calcium [Mass/Vol] 9.4 mg/dL Normal 8.6-10.3 [facility] Comment on above: Performed By: #### L [id number] ####[facility] (BEAKER)[address] [place] [address] Chloride [Moles/Vol] 98 mmol/L Normal 98-107 [facility] Comment on above: Performed By: #### L [id number] ####[facility] (BEAKER)[address] [place] [address] CO2 [Moles/Vol] 31 mmol/L Normal 21-31 [facility] Comment on above: Performed By: #### L [id number] ####[facility] (BEAKER)[address] [place] [address] Creatinine [Mass/Vol] 7.27 mg/dL High 0.70-1.30 [facility] Comment on above: Performed By: #### L [id number] ####[facility] (BEAKER)[address] [place] [address] GLOMERULAR FILTRATION RATE ML/MIN/1.73 SQ M.PREDICTED 8.3 mL/min/1.73m*2 Low >60.0 [facility] Comment on above: Result Comment: [facility]???s estimated glomerular filtration rate (eGFR) will [...] of individuals. Performed By: #### L [id number] ####[facility] ([facility])[address] [place] [address] Glucose [Mass/Vol] 216 mg/dL High 70-100 [facility] Comment on above: Performed By: #### L [id number] ####[facility] ([facility])[address] [place] [address] Potassium [Moles/Vol] 4.1 mmol/L Normal 3.5-5.1 [facility] Comment on above: Performed By: #### L [id number] ####[facility] ([facility])[address] [place] [address] Protein [Mass/Vol] 7.6 g/dL Normal 6.0-8.3 [facility] Comment on above: Performed By: #### L [id number] ####[facility] ([facility])[address] [place] [address] Sodium [Moles/Vol] 139 mmol/L Normal 136-145 [facility] Comment on above: Performed By: #### L [id number] ####[facility] ([facility])[address] [place] [address] Urea nitrogen [Mass/Vol] 53 mg/dL High 7-25 [facility] Comment on above: Performed By: #### L [id number] ####[facility] ([facility])[address] [place] [address] UREA NITROGEN/CREATININE (MASS RATIO) IN SER/PLAS 7.3 Normal [facility] Comment on above: Performed By: #### L [id number] ####[facility] ([facility])[address] [place] [address] CT ABDOMEN PELVIS WO RENAL R ECIPIENTon [...] reasonably achievable. Electronically signed: Alonso Sampson. Normal [facility] HEMOGLOBIN A1Con 07-11-2024 Glucose [Mass/Vol] 166 mg/dL [facility] Comment on above: Performed By: #### L [id number] #### [facility] ([facility]) [address] [place] [address] HbA1c (Bld) [Mass fraction] 7.4 % High 4.0-6.0 [facility] Comment on above: Performed By: #### L [id number] #### [facility] ([facility]) [address] [place] [address] HEPATITIS A ANTIBODY, IGMon 07-11-2024 HEPATITIS A VIRUS IGM AB PRESENCE IN SER/PLAS Non-Reactive Normal Nonreactive [facility] Comment on above: Performed By: #### L [id number] #### [facility] ([facility]) [address] [place] [address] HEPATITIS B CORE ANTIBODY, I GMon 07-11-2024 HEPATITIS B VIRUS CORE IGM AB PRESENCE IN SER/PLAS BY IMMUNOASSY Negative Normal Negative [facility] Comment on above: Result Comment: INTE RPRETIVE INFORMATION: Hepatitis B Core Ab, IgM This assay should not be used for blood donor screening, associated re-entry protocols, or for screening Human Cells, Tissues and Cellular and Tissue-Based Products (HCT/P). Performed By: [employer] [address] [place] [id number] Cable Dispatcher: Aristeo Salgado MD, PhD CLIA Number: [id number] Performed By: #### L [id number] #### [facility] ([facility]) [address] [place] [address] HEPATITIS B CORE ANTIBODY, T OTALon 07-11-2024 HEPATITIS B VIRUS CORE AB (PRESENCE) IN SER/PLAS BY IMM Non-Reactive Normal Nonreactive [facility] Comment on above: Performed By: #### L [id number] ####[facility] ([facility])[address] [place] [address] HEPATITIS B SURFACE ANTIBODY QUANTon 07-11-2024 HEPATITIS B VIRUS SURFACE AB (MIU/ML) IN SERUM 1.48 mIU/mL Normal [facility] Comment on above: Result Comment: INTE RPRETATION: NONREACTIVE <8.00 mIU/mL INDETERMINATE 8.00 - 12.00 mIU/mL REACTIVE >12 mIU/mL Performed By: #### L [id number] #### [facility] ([facility]) [address] [place] [address] HEPATITIS B SURFACE ANTIGENo n 07-11-2024 HEPATITIS B VIRUS SURFACE AG PRESENCE IN SERUM Non-Reactive Normal Nonreactive [facility] Comment on above: Performed By: #### L [id number] ####[facility] ([facility])[address] [place] [address] HEPATITIS C ANTIBODYon 07-11 HEPATITIS C VIRUS AB PRESENCE IN SERUM Non-Reactive Normal Nonreactive [facility] Comment on above: Performed By: #### L [id number] ####[facility] ([facility])[address] [place] [address] HIV COMBO 4Gon 07-11-2024 HIV COMBO 4G Negative Normal Negative [facility] Comment on above: Performed By: #### L [id number] ####[facility] ([facility])[address] [place] [address] HLA ABC CLASS I TYPINGon A*-1 2 [facility] Comment on above: Performed By: #### L [id number] #### [facility] ([facility]) [address] [place] [address] A*-2 25 [facility] Comment on above: Performed By: #### L [id number] #### [facility] ([facility]) [address] [place] [address] B*-1 44 [facility] Comment on above: Performed By: #### L [id number] #### [facility] ([facility]) [address] [place] [address] B*-2 57 [facility] Comment on above: Performed By: #### L [id number] #### [facility] ([facility]) [address] [place] [address] BW*-1 4 [facility] Comment on above: Performed By: #### L [id number] #### [facility] ([facility]) [address] [place] [address] C*-1 5 [facility] Comment on above: Performed By: #### L [id number] #### [facility] ([facility]) [address] [place] [address] C*-2 6 [facility] Comment on above: Performed By: #### L [id number] #### [facility] [address] [place] [address] HLA ABC CLASS I TYPING TEST METHOD Class I typing by PCR-SSOP [employer] [facility] Comment on above: Performed By: #### L [id number] #### [facility] [address] [place] [address] HLA ABC TESTED DATE [id number] [facility] Comment on above: Performed By: #### L [id number] #### [facility] ([facility]) [address] [place] [address] CLASS II TYPINGon DPB1*-1 04:01 [facility] Comment on above: Performed By: #### L [id number] #### [facility] ([facility]) [address] [place] [address] DPB1*-2 04:01 [facility] Comment on above: Performed By: #### L [id number] #### [facility] ([facility]) [address] [place] [address] DQA1*-1 01 [facility] Comment on above: Performed By: #### L [id number] #### [facility] ([facility]) [address] [place] [address] DQA1*-2 02 [facility] Comment on above: Performed By: #### L [id number] #### [facility] ([facility]) [address] [place] [address] DQB1*-1 9 [facility] Comment on above: Performed By: #### L [id number] #### [facility] ([facility]) [address] [place] [address] DQB1*-2 5 [facility] Comment on above: Performed By: #### L [id number] #### [facility] ([facility] [address] [place] [address] DRB1*-1 1 [facility] Comment on above: Performed By: #### L [id number] #### [facility] ([facility]) [address] [address] DRB1*-2 7 [facility] Comment on above: Performed By: #### L [id number] #### [facility] ([facility]) [address] [place] [address] DRB4*-2 53N [facility] Comment on above: Performed By: #### L [id number] #### [facility] ([facility]) [address] [place] [address] HLA COMMENTS Due to available spa ce, 53N represents the DRB4*01:03:01:02N null allele. [facility] Comment on above: Performed By: #### L [id number] #### [facility] ([facility]) [address] [place] [address] CLASS II TYPING TEST METHOD Class II typing by PCR-SSOP [facility] Comment on above: Performed By: #### L [id number] #### [facility] ([facility]) [address] [place] [address] TESTED DATE [id number] Normal [facility] Comment on above: Performed By: #### L [id number] #### [facility] ([facility]) [address] [place] [address] LIPID PANELon 07-11-2024 CHOL/HDL 5.5 mg/dL [facility] Comment on above: Performed By: #### L [id number] ####[facility] ([facility])[address] [place] [address] Cholesterol [Mass/Vol] 186 mg/dL Normal 120-200 Un [facility] Comment on above: Performed By: #### L [id number] ####[facility] ([facility])[address] [place] [address] Magnesium [Mass/Vol] 237 mg/dL High 40-149 [facility] Comment on above: Result Comment: TRIG LYCERIDE REFERENCE RANGE: 20 YEARS AND OLDER CARDIOVASCULAR RISK LESS THAN 150 mg/dL LOW RISK 150 TO 199 mg/dL BORDERLINE RISK 200 mg/dL AND GREATER HIGH RISK Performed By: #### L [id number] ####[facility] ([facility])[address] [place] [address] Magnesium [Mass/Vol] 105 mg/dL Normal 0-160 [facility] Comment on above: Performed By: #### L [id number] ####[facility] ([facility])[address] [place] [address] Magnesium [Mass/Vol] 34 mg/dL Normal 23-92 [facility] Comment on above: Performed By: #### L [id number] ####[facility] ([facility])[address] [place] [address] NON HDL CHOL. (LDL+VLDL) 152 Normal [facility] Comment on above: Performed By: #### L [id number] ####[facility] ([facility])[address] [place] [address] TOTAL VLDL-C 47 mg/dL High 0-40 [facility] Comment on above: Performed By: #### L [id number] ####[facility] ([facility])[address] [place] [address] PANEL REACTIVE ANTIBODYon HOLD SPECIMEN Hold for add-ons. Normal [facility] Comment on above: Result Comment: Auto resulted. Performed By: #### L [id number] ####[facility] TISSUE TYPING (HISTOTRAC)[address] [place] [address] [place] PROTIME-INRon 07-11-2024 INR IN PPP BY COAGULATION ASSAY 1.08 Normal 0.90-1.10 [facility] Comment on above: Result Comment: ACCC [...] CHEST 1995;108:[id number]. Performed By: #### L [id number] ####[facility] ([facility])[address] [place] [address] PROTHROMBIN TIME (PT) IN PPP BY COAGULATION ASSAY 14.0 Seconds Normal 12.3-14.8 [facility] Comment on above: Performed By: #### L [id number] ####[facility] ([facility])[address] [place] [address] PSA, SCREENINGon 07-11-2024 PROSTATE SPECIFIC AG (NG/ML) IN SER/PLAS 1.4 ng/mL Normal 0.4-4 [facility] Comment on above: Performed By: #### L [id number] ####[facility] ([facility])[address] [place] [address] SINGLE ANTIGEN CLASS Ion CLASS I LOW RISK AB A:23 29 B:8 Normal [facility] Comment on above: Performed By: #### L [id number] #### [facility] ([facility]) [address] [place] [address] CLASS I SPECIFICITY AB A:11 B:76 Normal [facility] Comment on above: Performed By: #### L [id number] #### [facility] ([facility]) [address] [place] [address] CLASS I TESTED DATE [id number] Normal [facility] Comment on above: Performed By: #### L [id number] #### [facility] HOSPITAL LAB (BEAKER) [address] [place] [address] SINGLE ANTIGEN CLASS 1 TEST METHOD Class I Single Antigen Normal [facility] Comment on above: Performed By: #### L [id number] #### [facility] HOSPITAL LAB (BEAKER) [address] [place] [address] SINGLE ANTIGEN CLASS IIon CLASS II LOW RISK AB DRw:53 Normal [facility] Comment on above: Performed By: #### L [id number] #### [facility] TISSUE TYPING (HISTOTRAC) [address] [place] [address] [place] CLASS II TESTED DATE [facility] Comment on above: Performed By: #### L [id number] #### [facility] TISSUE TYPING (HISTOTRAC) [address] [place] [address] [place] CPRA 12 [facility] Comment on above: Performed By: #### L [id number] #### [facility] TISSUE TYPING (HISTOTRAC) [address] [place] [address] [place] Performed By: #### L [id number] #### [facility] [address] [place] [address] SIGNED BY Signed by Delano betancourt CHT([facility]) MT([facility]), Product Specialist Transplant Immunology [facility] Comment on above: Performed By: #### L [id number] #### [facility] TISSUE TYPING (HISTOTRAC) [address] [place] [address] [place] Performed By: #### L [id number] #### [facility] HOSPITAL LAB (BEAKER) [address] [place] [address] Result Comment: Clas s I Antigen Microbeads SINGLE ANTIGEN CLASS 2 TEST METHOD Class II Single Antigen Normal [facility] Comment on above: Result Comment: Clas s II Antigen Microbeads Performed By: #### L [id number] #### [facility] TISSUE TYPING (HISTOTRAC) [address] [place] [address] [place] TESTOSTERONE, FREE AND TOTAL , AND SHBGon 07-11-2024 SEX HORMONE BINDING GLOBULIN (NMOL/L) IN SER/PLAS 14 nmol/L Low 19-76 [facility] Comment on above: Performed By: #### L [id number] ####[facility] [id number] [place] [address] TESTOSTERONE (NG/DL) IN SER/PLAS 408 ng/dL Normal 193-740 [facility] Comment on above: Performed By: #### L [id number] ####[facility] [id number] [place] [address] TESTOSTERONE FREE (NG/ML) IN SER/PLAS 122.7 pg/mL Normal 47.0-244.0 [facility] Comment on above: Result Comment: The concentration of free testosterone is derived from a mathematical expression based on the constant for the binding of testosterone to albumin and/or sex hormone binding globulin. Test Performed by [employer] [address] [place] [id number] - Released 07/11/2024 18:27 Performed By: #### L [id number] ####[facility] [place] [address] TYPE AND SCREENon 07-11-2024 AB SCREEN Negative Normal [facility] Comment on above: Performed By: #### L [id number] ####[facility] BLOOD BANK, ABO group Nom (Bld) A Normal [facility] Comment on above: Performed By: #### L [id number] ####[facility] BLOOD B[facility], RH TYPE IN BLOOD Positive Normal [facility] Comment on above: Performed By: #### L [id number] ####[facility] BLOOD BANK, BASIC METABOLIC PANELon 06-06 Anion gap [Moles/Vol] 16 mmol/L Normal 7-20 [facility] Comment on above: Performed By: #### L [id number] ####[facility] HOSPITAL LAB (BEAKER)[address] [place] [address] Calcium [Mass/Vol] 8.7 mg/dL Normal 8.6-10.3 [facility] Comment on above: Performed By: #### L [id number] ####[facility] ([facility])[address] [place] [address] Chloride [Moles/Vol] 101 mmol/L Normal 98-107 [facility] Comment on above: Performed By: #### L [id number] ####[facility] ([facility])[address] [place] [address] CO2 [Moles/Vol] 25 mmol/L Normal 21-31 [facility] Comment on above: Performed By: #### L [id number] ####[facility] ([facility])[address] [place] [address] Creatinine [Mass/Vol] 7.29 mg/dL High 0.70-1.30 [facility] Comment on above: Performed By: #### L [id number] ####[facility] ([facility])[address] [place] [address] GLOMERULAR FILTRATION RATE ML/MIN/1.73 SQ M.PREDICTED 8.3 mL/min/1.73m*2 Low >60.0 [facility] Comment on above: Result Comment: [facility]???s estimated glomerular filtration rate (eGFR) will [...] of individuals. Performed By: #### L [id number] ####[facility] ([facility])[address] [place] [address] Glucose [Mass/Vol] 126 mg/dL High 70-100 [facility] Comment on above: Performed By: #### L [id number] ####[facility] ([facility])[address] [place] [address] Potassium [Moles/Vol] 4.4 mmol/L Normal 3.5-5.1 [facility] Comment on above: Performed By: #### L [id number] ####[facility] ([facility] [place] [address] Sodium [Moles/Vol] 138 mmol/L Normal 136-145 [facility] Comment on above: Performed By: #### L [id number] ####[facility] ([facility] [place] [address] Urea nitrogen [Mass/Vol] 67 mg/dL High 7-25 [facility] Comment on above: Performed By: #### L [id number] ####[facility] ([facility])[address] [place] [address] UREA NITROGEN/CREATININE (MASS RATIO) IN SER/PLAS 9.2 Normal [facility] Comment on above: Performed By: #### L [id number] ####[facility] ([facility] [place] [address] CBC WITH AUTO DIFFERENTIALon 06-22-2024 Basophils (Bld) [#/Vol] 0.03 10*3/uL Normal 0.00-0.20 [facility] Comment on above: Performed By: #### L [id number] ####[facility] LAB (BEAKER)[address] [place] [address] Basophils/100 WBC (Bld) 0.3 % Normal 0.0-1.0 [facility] Comment on above: Performed By: #### L [id number] ####[facility] LAB (BEAKER)[address] [place] [address] Eosinophils (Bld) [#/Vol] 0.24 10*3/uL Normal 0.00-0.50 [facility] Comment on above: Performed By: #### L [id number] ####[facility] (BEAKER)[address] [place] [address] Eosinophils/100 WBC (Bld) 2.1 % Normal 0.0-6.0 [facility] Comment on above: Performed By: #### L [id number] ####[facility] ([facility])[address] [place] [address] Erythrocyte distribution width (RBC) [Ratio] 15.2 % High 11.5-15.0 [facility] Comment on above: Performed By: #### L [id number] ####[facility] ([facility])[address] [place] [address] ERYTHROCYTE MEAN CORPUSCULAR HEMOGLOBIN CONCENTRATION (G/DL) BY AUTOMATED 32.7 g/dL Normal 32.0-35.0 [facility] Comment on above: Performed By: #### L [id number] ####[facility] ([facility])[address] [place] [address] Hematocrit (Bld) [Volume fraction] 37.0 % Low 39.0-55.0 [facility] Comment on above: Performed By: #### L [id number] ####[facility] ([facility])[address] [place] [address] Hemoglobin (Bld) [Mass/Vol] 12.1 g/dL Low 13.0-17.0 [facility] Comment on above: Performed By: #### L [id number] ####[facility] ([facility])[address] [place] [address] Immature granulocytes (Bld) [#/Vol] 0.07 10*3/uL Normal 0.00-0.20 [facility] Comment on above: Performed By: #### L [id number] ####[facility] ([facility])[address] [place] [address] Immature granulocytes/100 WBC (Bld) 0.6 % Normal 0.0-1.0 [facility] Comment on above: Performed By: #### L [id number] ####[facility] [place] [address] Lymphocytes (Bld) [#/Vol] 2.10 10*3/uL Normal 1.20-4.00 [facility] Comment on above: Performed By: #### L [id number] ####[facility] HOSPITAL LAB (BEAKER)[address] [place] [address] Lymphocytes/100 WBC (Bld) 18.2 % Low 20.0-45.0 [facility] Comment on above: Performed By: #### L [id number] ####[facility] LAB (BEAKER)[address] [place] [address] MCH (RBC) [Entitic mass] 30.5 pg Normal 27.0-33.0 [facility] Comment on above: Performed By: #### L [id number] ####[facility] (BEAKER)[address] [place] [address] MCV (RBC) [Entitic vol] 93.2 fL Normal 82.0-98.0 [facility] Comment on above: Performed By: #### L [id number] ####[facility] (BEAKER)[address] [place] [address] Monocytes (Bld) [#/Vol] 0.88 10*3/uL Normal 0.10-1.00 [facility] Comment on above: Performed By: #### L [id number] ####[facility] LAB (BEAKER)[address] [place] [address] Monocytes/100 WBC (Bld) 7.6 % Normal 5.0-12.0 [facility] Comment on above: Performed By: #### L [id number] ####[facility] LAB (BEAKER)[address] [place] [address] Neutrophils (Bld) [#/Vol] 8.22 10*3/uL High 1.60-7.60 [facility] Comment on above: Performed By: #### L [id number] ####[facility] LAB (BEAKER)[address] [place] [address] Neutrophils/100 WBC (Bld) 71.2 % Normal 40.0-72.0 [facility] Comment on above: Performed By: #### L [id number] ####[facility] LAB (BEAKER)[address] [place] [address] NRBC (PER 100 WBCS) BY AUTOMATED COUNT 0.0 % Normal 0 [facility] Comment on above: Performed By: #### L [id number] ####[facility] ([facility])[address] [place] [address] PLATELETS (10*3/UL) IN BLOOD AUTOMATED COUNT 294 10*3/uL Normal 150-400 [facility] Comment on above: Performed By: #### L [id number] ####[facility] ([facility])[address] [place] [address] RBC (Bld) [#/Vol] 3.97 10*6/uL Low 4.20-5.70 [facility] Comment on above: Performed By: #### L [id number] ####[facility] ([facility])[address] [place] [address] WBC (Bld) [#/Vol] 11.54 10*3/uL High 4.00-10.60 [facility] Comment on above: Performed By: #### L [id number] ####[facility] ([facility])[address] [place] [address] Follow-Upon 06-22-2024 Follow-Up [id number] [place] Forte 1970 M Date Provider Department [place] 06/22/2024 Eliana-PEDRO ALVAREZ [facility] CARD [place] Heart[facility]AS Family History Problem Relation Age of Onset Breast cancer Mother Comments: age 53, METS to brain Heart disease Father Heart attack Father Comments: age 26 No Known Problems Sister Comments: half-sister Crohn's disease Daughter Comments: perforated bowel Family Status - Relation Status Age at Mother Father Sister Daughter Level of Service:39199 [place] OFFICE/OUTPATIENT NEW HIGH MDM 60 MINUTES Reason for Visit and Comments: Cardiac evaluation for transplant [Other] - Follow for abnormal stress done 06/13/2024 Normal [facility] Labon 06-22-2024 Lab [id number] Evans Forte 1970 M Date Provider Department [place] 06/22/2024 2245-[facility] OPD LAB RESOURCE [facility] OPD OR Medical C Family History Problem Relation Age of Onset Breast cancer Mother Comments: age 53, METS to brain Heart disease Father Heart attack Father Comments: age 26 No Known Problems Sister Comments: half-sister Crohn's disease Daughter Comments: perforated bowel Family Status - Relation Status Age at Mother Father Sister Daughter [facility] HISTOLOGY - TISSUE EXAMon LAB AP CASE REPORT Normal [facility] Comment on above: Result Comment: Surg ical Pathology Case: [id number] Authorizing Provider: Anya Henley MD Collected: 06/20/2024 1141 Ordering Location: [facility] Received: 06/20/2024 1309 [facility] Pathologist: Carly Beard MD Specimen: Rectum, RECTUM POLYP Performed By: #### L [id number] ####[facility] LAB (BEAKER)[address] [place] [address] LAB AP CLINICAL INFORMATION Order Diagnoses [facility] Comment on above: Result Comment: Z12. 11 - Screen for colon cancer [ICD-10-CM] Performed By: #### L [id number] ####[facility] ([facility] [place] [address] LAB AP GROSS DESCRIPTION A. Rectum. [facility] Comment on above: Result Comment: The [...] Toscano, student fellow Performed By: #### L [id number] ####[facility] ([facility] [place] [address] LAB AP MICROSCOPIC DESCRIPTION Microscopic examination performed. [facility] Comment on above: Performed By: #### L [id number] ####[facility] LAB (BEAKER)[address] [place] [address] LAB AP REPORT FINAL DIAGNOSIS NARRATIVE [facility] Comment on above: Result Comment: Lisa Bone olon, rectal polyp, polypectomy: - Fragments of colonic mucosa with early hyperplastic changes and lymphoid aggregate. - Negative for dysplasia. Performed By: #### L [id number] ####[facility] ([facility])[address] [place] [address] HPon 06-20-2024 HP H&P reviewed. The patient was examined and there are no changes to the H&P. Here for surveillance colonoscopy with hx of multiple and large polyps in 2021 and poor prep. Normal [facility] NURSNOTEon 06-20-2024 NURSNOTE All positioning samaria rakesh removed pt remains supine. Normal [facility] POCT PERFUSION PANEL UNSOLIC ITED RESULTSon 06-20-2024 Glucose [Mass/Vol] 114 mg/dL High 70-105 [facility] Comment on above: Performed By: #### L [id number] ####[facility] ([facility])[address] [place] [address] POCT BASE EXCESS Normal [facility] Comment on above: Performed By: #### L [id number] ####[facility] ([facility])[address] [place] [address] POCT HCO3 Normal [facility] Comment on above: Performed By: #### L [id number] ####[facility] ([facility])[address] [place] [address] POCT HEMATOCRIT Normal [facility] Comment on above: Performed By: #### L [id number] ####[facility] ([facility])[address] [place] [address] POCT HEMOGLOBIN Normal [facility] Comment on above: Performed By: #### L [id number] ####[facility] ([facility])[address] [place] [address] POCT IONIZED CALCIUM Normal [facility] Comment on above: Performed By: #### L [id number] ####[facility] LAB (BEAKER)[address] [place] [address] POCT PCO2 Normal [facility] Comment on above: Performed By: #### L [id number] ####[facility] HOSPITAL LAB (BEAKER)[address] [place] [address] POCT PH Normal [facility] Comment on above: Performed By: #### L [id number] ####[facility] HOSPITAL LAB (BEAKER)[address] [place] [address] POCT PO2 Normal [facility] Comment on above: Performed By: #### L [id number] ####[facility] LAB (BEAKER)[address] [place] [address] POCT SO2 [facility] Comment on above: Performed By: #### L [id number] ####[facility] LAB (BEAKER)[address] [place] [address] POCT SODIUM Normal [facility] Comment on above: Performed By: #### L [id number] ####[facility] LAB (BEAKER)[address] [place] [address] POCT TOTAL CO2 [facility] Comment on above: Performed By: #### L [id number] ####[facility] LAB (BEAKER)[address] [place] [address] Potassium [Moles/Vol] 4.4 mmol/L Normal 3.5-4.9 [facility] Comment on above: Performed By: #### L [id number] ####[facility] LAB (BEAKER)[address] [place] [address] Prep for Procedureon 024 Prep for Procedure [id number] Evans Forte 1970 M Date Provider Department Center 06/20/2024 ANYA FERRARO [employer] [place] Family History Problem Relation Age of Onset Breast cancer Mother Comments: age 53, METS to brain Heart disease Father Heart attack Father Comments: age 26 No Known Problems Sister Comments: half-sister Crohn's disease Daughter Comments: perforated bowel Family Status - Relation Status Age at Mother Father Sister Daughter [facility] 36on 06-14-2024 36 Patient called TC [...] is needed. 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 Patient stated understanding and scheduled his TE Re-eval for 07/11/24 and asked to be added to the cancellation list for any sooner appointments on Tuesdays and . TC confirmed and sent patient, referring MD and dialysis unit a letter. [facility] Orders Onlyon 06-13-2024 Orders Only [id number] Evans Forte 1970 Date Provider Department Center 06/13/2024 ERMIAS MURRAY [facility] Pavi Family History Problem Relation Age of Onset Breast cancer Mother Comments: age 53 Heart disease Father Heart attack Father Comments: age 26 No Known Problems Sister Comments: half-sister Crohn's disease Daughter Comments: perforated bowel Family Status - Relation Status Age at Mother Father Sister Daughter [facility] Prep for Procedureon 024 Prep for Procedure [id number] Evans Forte 1970 M Date Provider Department Center 06/13/2024 ANYA FERRARO [employer] [place]I Family History Problem Relation Age of Onset Breast cancer Mother Comments: age 53, METS to brain Heart disease Father Heart attack Father Comments: age 26 No Known Problems Sister Comments: half-sister Crohn's disease Daughter Comments: perforated bowel Family Status - Relation Status Age at Mother Father Sister Daughter [facility] Follow-Upon 05-26-2024 Follow-Up [id number] Evans Forte 1970 M Date Provider Department Center 05/26/2024 [facility] Family History Problem Relation Age of Onset Breast cancer Mother Comments: age 53 Heart disease Father Heart attack Father Comments: age 26 No Known Problems Sister Comments: half-sister Crohn's disease Daughter Comments: perforated bowel Family Status - Relation Status Age at Mother Father Sister Daughter Level of Service:64816 [place] OFFICE/OUTPATIENT ESTABLISHED MOD MDM 30 MIN Reason for Visit and Comments: Follow-up [603988] - Lab results Normal [facility] HPon 05-26-2024 HP Subjective Patient ID: [...] with Dialysis 3 x week locally in [place]. Pt labs reviewed: T Levels: 05/23/24 373 [...] Order fax to [place]. 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 No CP or SOB. No N/V/D. No abd/flank pain. Pt continues with better level of fatigue. 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 Plan: Follow up Trimix Trial with Meds. 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 Urination: - amount of urine made: [...] previous fertility (more content not included)... Normal [facility] Orders Onlyon 05-24-2024 Orders Only [id number] Evans Forte 1970 M Date Provider Department Center 05/24/2024 LORETTA ACEVES [employer] [place] Family History Problem Relation Age of Onset Breast cancer Mother Comments: age 53 Heart disease Father Heart attack Father Comments: age 26 No Known Problems Sister Comments: half-sister Crohn's disease Daughter Comments: perforated bowel Family Status - Relation Status Age at Mother Father Sister Daughter Normal [facility] CBC WITH AUTO DIFFERENTIALon 05-23-2024 Basophils (Bld) [#/Vol] 0.06 10*3/uL Normal 0.00-0.20 [facility] Comment on above: Performed By: #### L [id number] #### [facility] LAB (BEAKER) [address] [place] [address] Basophils/100 WBC (Bld) 0.5 % Normal 0.0-1.0 [facility] Comment on above: Performed By: #### L [id number] #### [facility] LAB (BEAKER) [address] [place] [address] Eosinophils (Bld) [#/Vol] 0.36 10*3/uL Normal 0.00-0.50 [facility] Comment on above: Performed By: #### L [id number] #### [facility] LAB (BEAKER) [address] [place] [address] Eosinophils/100 WBC (Bld) 3.1 % Normal 0.0-6.0 [facility] Comment on above: Performed By: #### L [id number] #### [facility] LAB (BEAKER) [address] [place] [address] Erythrocyte distribution width (RBC) [Ratio] 13.7 % Normal 11.5-15.0 [facility] Comment on above: Performed By: #### L [id number] #### [facility] ([facility] [address] [place] [address] ERYTHROCYTE MEAN CORPUSCULAR HEMOGLOBIN CONCENTRATION (G/DL) BY AUTOMATED 32.4 g/dL Normal 32.0-35.0 [facility] Comment on above: Performed By: #### L [id number] #### [facility] ([facility]) [address] [place] [address] Hematocrit (Bld) [Volume fraction] 41.7 % Normal 39.0-55.0 [facility] Comment on above: Performed By: #### L [id number] #### [facility] ([facility]) [address] [place] [address] Hemoglobin (Bld) [Mass/Vol] 13.5 g/dL Normal 13.0-17.0 [facility] Comment on above: Performed By: #### L [id number] #### [facility] ([facility]) [address] [place] [address] Immature granulocytes (Bld) [#/Vol] 0.13 10*3/uL Normal 0.00-0.20 [facility] Comment on above: Performed By: #### L [id number] #### [facility] LAB (BEAKER) [address] [place] [address] Immature granulocytes/100 WBC (Bld) 1.1 % High 0.0-1.0 [facility] Comment on above: Performed By: #### L [id number] #### [facility] LAB (BEAKER) [address] [place] [address] Lymphocytes (Bld) [#/Vol] 1.92 10*3/uL Normal 1.20-4.00 [facility] Comment on above: Performed By: #### L [id number] #### [facility] LAB (BEAKER) [address] [place] [address] Lymphocytes/100 WBC (Bld) 16.7 % Low 20.0-45.0 [facility] Comment on above: Performed By: #### L [id number] #### [facility] ([facility]) [address] [place] [address] MCH (RBC) [Entitic mass] 30.1 pg Normal 27.0-33.0 [facility] Comment on above: Performed By: #### L [id number] #### [facility] ([facility]) [address] [place] [address] MCV (RBC) [Entitic vol] 93.1 fL Normal 82.0-98.0 [facility] Comment on above: Performed By: #### L [id number] #### [facility] ([facility]) [address] [place] [address] Monocytes (Bld) [#/Vol] 0.79 10*3/uL Normal 0.10-1.00 [facility] Comment on above: Performed By: #### L [id number] #### [facility] ([facility]) [address] [place] [address] Monocytes/100 WBC (Bld) 6.9 % Normal 5.0-12.0 [facility] Comment on above: Performed By: #### L [id number] #### [facility] ([facility]) [address] [place] [address] Neutrophils (Bld) [#/Vol] 8.25 10*3/uL High 1.60-7.60 [facility] Comment on above: Performed By: #### L [id number] #### [facility] ([facility]) [address] [place] [address] Neutrophils/100 WBC (Bld) 71.7 % Normal 40.0-72.0 [facility] Comment on above: Performed By: #### L [id number] #### [facility] ([facility] [address] [place] [address] NRBC (PER 100 WBCS) BY AUTOMATED COUNT 0.0 % Normal 0 [facility] Comment on above: Performed By: #### L [id number] #### [facility] ([facility] [address] [place] [address] PLATELETS (10*3/UL) IN BLOOD AUTOMATED COUNT 332 10*3/uL Normal 150-400 [facility] Comment on above: Performed By: #### L [id number] #### [facility] ([facility] [address] [place] [address] RBC (Bld) [#/Vol] 4.48 10*6/uL Normal 4.20-5.70 [facility] Comment on above: Performed By: #### L [id number] #### [facility] ([facility]) [address] [place] [address] WBC (Bld) [#/Vol] 11.51 10*3/uL High 4.00-10.60 [facility] Comment on above: Performed By: #### L [id number] #### [facility] ([facility]) [address] [place] [address] COMPREHENSIVE METABOLIC PANE Nick 05-23-2024 Albumin [Mass/Vol] 4.5 g/dL Normal 3.5-5.7 [facility] Comment on above: Performed By: #### L [id number] ####[facility] ([facility])[address] [place] [address] ALP [Catalytic activity/Vol] 123 U/L High 34-104 [facility] Comment on above: Performed By: #### L [id number] ####[facility] ([facility] [place] [address] ALT [Catalytic activity/Vol] 25 U/L Normal 7-52 [facility] Comment on above: Performed By: #### L [id number] ####[facility] ([facility] [place] [address] Anion gap [Moles/Vol] 15 mmol/L Normal 7-20 [facility] Comment on above: Performed By: #### L [id number] ####[facility] LAB (BEAKER)[address] [place] [address] AST [Catalytic activity/Vol] 15 U/L Normal 13-39 [facility] Comment on above: Performed By: #### L [id number] ####[facility] (BEAKER)[address] [place] [address] Bilirubin [Mass/Vol] 0.6 mg/dL Normal 0.3-1.0 [facility] Comment on above: Performed By: #### L [id number] ####[facility] LAB (BEAKER)[address] [place] [address] Calcium [Mass/Vol] 9.6 mg/dL Normal 8.6-10.3 [facility] Comment on above: Performed By: #### L [id number] ####[facility] ([facility] [place] [address] Chloride [Moles/Vol] 98 mmol/L Normal 98-107 [facility] Comment on above: Performed By: #### L [id number] ####[facility] LAB (BEAKER)[address] [place] [address] CO2 [Moles/Vol] 30 mmol/L Normal 21-31 [facility] Comment on above: Performed By: #### L [id number] ####[facility] LAB (BEAKER)[address] [place] [address] Creatinine [Mass/Vol] 6.78 mg/dL High 0.70-1.30 [facility] Comment on above: Performed By: #### L [id number] ####[facility] ([facility] [place] [address] GLOMERULAR FILTRATION RATE ML/MIN/1.73 SQ M.PREDICTED 9.1 mL/min/1.73m*2 Low >60.0 [facility] Comment on above: Result Comment: [facility]???s estimated glomerular filtration rate (eGFR) will [...] of individuals. Performed By: #### L [id number] ####[facility] ([facility])[address] [place] [address] Glucose [Mass/Vol] 161 mg/dL High 70-100 [facility] Comment on above: Performed By: #### L [id number] ####[facility] ([facility])[address] [place] [address] Potassium [Moles/Vol] 4.0 mmol/L Normal 3.5-5.1 [facility] Comment on above: Performed By: #### L [id number] ####[facility] ([facility])[address] [place] [address] Protein [Mass/Vol] 8.0 g/dL Normal 6.0-8.3 [facility] Comment on above: Performed By: #### L [id number] ####[facility] ([facility])[address] [place] [address] Sodium [Moles/Vol] 139 mmol/L Normal 136-145 [facility] Comment on above: Performed By: #### L [id number] ####[facility] ([facility])[address] [place] [address] Urea nitrogen [Mass/Vol] 41 mg/dL High 7-25 [facility] Comment on above: Performed By: #### L [id number] ####[facility] ([facility])[address] [place] [address] UREA NITROGEN/CREATININE (MASS RATIO) IN SER/PLAS 6.0 Normal [facility] Comment on above: Performed By: #### L [id number] ####[facility] ([facility])[address] [place] [address] ESTRADIOLon 05-23-2024 ESTRADIOL (PG/ML) IN SER/PLAS 5.0 pg/mL Low 27-52 [facility] Comment on above: Result Comment: FEMALES: Normally menstruating Luteal phase 60-232 Follicular phase 31-90 Midcycle phase 60-533 Postmenopausal (untreated) <138 Fulvestrant treatment will show an increased estradiol concentration with this methodology. Alternate methodologies are available upon request. Test Performed by [facility] [address] [place] [address] - Released 05/23/2024 12:54 Performed By: #### L [id number] ####[facility] [id number] [place] [address] Labon 05-23-2024 Lab [id number] Jama 1970 M Date Provider Department Center 05/23/2024 2244-[facility] MP LAB RESOURCE MP DRAW Medical Pavi Family History Problem Relation Age of Onset Breast cancer Mother Comments: age 53 Heart disease Father Heart attack Father Comments: age 26 No Known Problems Sister Comments: half-sister Crohn's disease Daughter Comments: perforated bowel Family Status - Relation Status Age at Mother Father Sister Daughter Normal [facility] PSA, SCREENINGon 05-23-2024 PROSTATE SPECIFIC AG (NG/ML) IN SER/PLAS 2.3 ng/mL Normal 0.4-4 [facility] Comment on above: Performed By: #### L [id number] ####[facility] LAB (BEAKER)[address] [place] [address] TESTOSTERONEon 05-23-2024 TESTOSTERONE (NG/DL) IN SER/PLAS 373 ng/dL Normal 193-740 [facility] Comment on above: Result Comment: Test Performed by [facility] [address] [place] [address] - Released 05/23/2024 12:54 Performed By: #### L [id number] #### [facility] LAB (BEAKER) [address] [place] [address] [place]illon 05-02-2024 Refill [id number] Jama 1970 M Date Provider Department Center 05/02/2024 [facility] Family History Problem Relation Age of Onset Breast cancer Mother Comments: age 53 Heart disease Father Heart attack Father Comments: age 26 No Known Problems Sister Comments: half-sister Crohn's disease Daughter Comments: perforated bowel Family Status - Relation Status Age at Mother Father Sister Daughter Reason for Visit and Comments: Med Refill [[id number]] [facility] 3602-22-2024 36 Called patient and l eft message [...] the results of his 1 year repeat [facility] 36 Patient would like update how often it was suggested to have a colonoscopy surveillance. He is working on becoming a kidney transplant donor. Last colonoscopy was done 06/2022. Please call to update with patient [phone]. Thank you This phone message was created by the Ambulatory float staff. If you need manager sales support follow up regarding this patient, please make your appropriate clinic staff member aware. Thank you. [facility] 36on 02-09-2024 36 Patient called to [...] verbalized understanding. Maria De Jesus Rutledge, RN [facility] Glucose Glucometer (BldC) [M ass/Vol]Ordered By: Gi Mondragon on 12-24-2023 Glucose [Mass/Vol] 207 mg/dL [facility] Comment on above: Random Glucose Refer ence Range is dependent on time and content of last meal. Glucose of more than 200 mg/dL in a nonstressed, ambulatory subject supports the diagnosis of Diabetes Mellitus. No Panel InformationOrdered By: Gi Mondragon on 12-24-2023 Bedside Glucose Comment Glu2: cleaned meter [facility] Basophils Auto (Bld) [#/Vol] Ordered By: Buddy Murguia on 11-23-2023 Basophils (Bld) [#/Vol] 0.1 10*3/uL 0.0-0.2 [facility] Basophils/100 WBC Auto (Bld) Ordered By: Buddy Murguia on 11-23-2023 Basophils/100 WBC (Bld) 0.7 % . [facility] Calcium [Mass/volume] in Ser um or PlasmaOrdered By: Buddy Murguia on 11-23-2023 Calcium [Mass/Vol] 9.3 mg/dL 8.6-10.3 [facility] Carbon dioxide, total [Moles /volume] in Serum or PlasmaOrdered By: Buddy Murguia on 11-23-2023 CO2 [Moles/Vol] 25.0 mmol/L 21.0-31.0 [facility] Chloride [Moles/volume] in S james or PlasmaOrdered By: Bdudy Murguia on 11-23-2023 Chloride [Moles/Vol] 102 mmol/L 98-107 [facility] Creatinine [Mass/volume] in Serum or PlasmaOrdered By: Buddy Murguia on 11-23-2023 Creatinine [Mass/Vol] 10.07 mg/dL 0.70-1.30 [facility] Comment on above: Delta: 9.33 on 11/21-0616 Eosinophils Auto (Bld) [#/Vo l]Ordered By: Buddy Murguia on 11-23-2023 Eosinophils (Bld) [#/Vol] 0.4 10*3/uL 0.0-0.45 [facility] Eosinophils/100 WBC Auto (Bl d)Ordered By: Buddy Murguia on 11-23-2023 Eosinophils/100 WBC (Bld) 5.6 % . [facility] Erythrocyte distribution wid th Auto (RBC) [Ratio]Ordered By: Buddy Murguia on 11-23-2023 Erythrocyte distribution width (RBC) [Ratio] 15.7 % 12.0-14.8 [facility] Glucose Glucometer (BldC) [M ass/Vol]Ordered By: Amy Escudero on 11-23-2023 Glucose [Mass/Vol] 123 mg/dL [facility] Comment on above: Random Glucose Refer ence Range is dependent on time and content of last meal. Glucose of more than 200 mg/dL in a nonstressed, ambulatory subject supports the diagnosis of Diabetes Mellitus. Glucose [Mass/volume] in Ser um or PlasmaOrdered By: Buddy uMrguia on 11-23-2023 Glucose [Mass/Vol] 94 mg/dL 70-100 [facility] Comment on above: ADA recommended refe rence rangeRandom Glucose Reference Range is dependent on time and content of last meal. Glucose of more than 200 mg/dL in a nonstressed, ambulatory subject supports the diagnosis of Diabetes Mellitus. Hematocrit Auto (Bld) [Volum e fraction]Ordered By: Buddy Murguia on 11-23-2023 Hematocrit (Bld) [Volume fraction] 35.2 % 38.8-50.0 [facility] Hemoglobin [Mass/volume] in BloodOrdered By: Buddy Murguia on 11-23-2023 Hemoglobin (Bld) [Mass/Vol] 11.3 g/dL 13.0-17.0 [facility] Leukocytes [#/volume] correc scott for nucleated erythrocytes in Blood by Automated counOrdered By: Buddy Murguia on 11-23-2023 WBC corrected for nucl RBC Auto (Bld) [#/Vol] 7.7 10*3/uL 4.1-10.5 [facility] Lymphocytes Auto (Bld) [#/Vo l]Ordered By: Buddy Murguia on 11-23-2023 Lymphocytes (Bld) [#/Vol] 1.6 10*3/uL 1.00-4.8 [facility] Lymphocytes/100 WBC Auto (Bl d)Ordered By: Buddy Murguia on 11-23-2023 Lymphocytes/100 WBC (Bld) 20.6 % . [facility] MCH Auto (RBC) [Entitic mass ]Ordered By: Buddy Murguia on 11-23-2023 MCH (RBC) [Entitic mass] 30.4 pg 27.5-35.2 [facility] MCHC Auto (RBC) [Mass/Vol]Or dered By: Buddy Murguia on 11-23-2023 MCHC (RBC) [Mass/Vol] 32.2 g/dL 32.5-35.6 [facility] MCV Auto (RBC) [Entitic vol] Ordered By: Buddy Murguia on 11-23-2023 MCV (RBC) [Entitic vol] 94.5 fL 83.5-101 [facility] Magnesium [Mass/volume] in S james or PlasmaOrdered By: Buddy Murguia on 11-23-2023 Magnesium [Mass/Vol] 2.7 mg/dL 1.9-2.7 [facility] Monocytes Auto (Bld) [#/Vol] Ordered By: Buddy Murguia on 11-23-2023 Monocytes (Bld) [#/Vol] 0.8 10*3/uL 0.0-0.8 [facility] Monocytes/100 WBC Auto (Bld) Ordered By: Buddy Murguia on 11-23-2023 Monocytes/100 WBC (Bld) 9.8 % . [facility] Neutrophils Auto (Bld) [#/Vo l]Ordered By: Buddy Murguia on 11-23-2023 Neutrophils (Bld) [#/Vol] 4.9 10*3/uL 1.8-7.7 [facility] Neutrophils/100 WBC Auto (Bl d)Ordered By: Buddy Murguia on 11-23-2023 Neutrophils/100 WBC (Bld) 63.3 % . [facility] No Panel InformationOrdered By: Buddy Murguia on 11-23-2023 Estimated GFR (CKD-EPI) 5.666 mL/Min [facility] Creatinine Clearance (Chem 13.08 [facility] Nucleated erythrocytes [Pres ence] in Blood by Automated countOrdered By: Buddy Murguia on 11-23-2023 Nucleated RBC Auto Ql (Bld) 0.0 /100{WBC} 0-0.5 [facility] Platelet mean volume Auto (B ld) [Entitic vol]Ordered By: Buddy Murguia on 11-23-2023 Platelet mean volume (Bld) [Entitic vol] 8.3 fL 6.6-10.1 [facility] Platelets Auto (Bld) [#/Vol] Ordered By: Buddy Murguia on 11-23-2023 Platelets (Bld) [#/Vol] 248 10*3/uL 150-450 [facility] Potassium [Moles/volume] in Serum or PlasmaOrdered By: Buddy Murguia on 11-23-2023 Potassium [Moles/Vol] 4.5 mmol/L 3.5-5.1 [facility] RBC Auto (Bld) [#/Vol]Ordere d By: Buddy Murguia on 11-23-2023 RBC (Bld) [#/Vol] 3.73 10*6/uL 3.90-5.[address] [facility] Serum or plasma anion gap de terminationOrdered By: Buddy Murguia on 11-23-2023 Anion gap [Moles/Vol] 16.5 mmol/L 6.0-15.0 [facility] Sodium [Moles/volume] in Ser um or PlasmaOrdered By: Buddy Murguia on 11-23-2023 Sodium [Moles/Vol] 139 mmol/L 136-145 [facility] Urea nitrogen [Mass/volume] in Serum or PlasmaOrdered By: Buddy Murguia on 11-23-2023 Urea nitrogen [Mass/Vol] 74 mg/dL 7-25 [facility] WBC Auto (Bld) [#/Vol]Ordere d By: Buddy Murguia on 11-23-2023 WBC (Bld) [#/Vol] 7.7 10*3/uL 4.1-10.5 [facility] Prealbumin [Mass/volume] in Serum or PlasmaOrdered By: Yasmin Winchester on 11-22-2023 Prealbumin [Mass/Vol] 28.9 mg/dL 17.0-34.0 [facility] Automated erythrocytes count in urine sediment (number/area)Ordered By: Chong Dixon on 11-21-2023 RBC Auto (Urine sed) [#/Area] 1-2 [HPF] 0-4 [facility] Automated leukocytes count i n urine sediment (number/area)Ordered By: Chong Dixon on 11-21-2023 WBC Auto (Urine sed) [#/Area] 20-49 [HPF] 0-4 [facility] Bilirubin Test strip Ql (U)O rdered By: Chong Dixon on 11-21-2023 Bilirubin Ql (U) Negative Negative [facility] Color Auto (U)Ordered By: Tavon Dixon on 11-21-2023 Color (U) Yellow Yellow [facility] Glucose mean value [Mass/vol ume] in Blood Estimated from glycated hemoglobinOrdered By: Buddy Murguia on 11-21-2023 Average glucose Estimated from glycated hemoglobin (Bld) [Mass/Vol] 114 mg/dL [facility] Hemoglobin A1c percentageOrd ered By: Buddy Murguia on 11-21-2023 HbA1c (Bld) [Mass fraction] 5.6 % 4.3-5.6 [facility] Comment on above: Increased risk for d iabetes: 5.7 - 6.4diabetes: >6.4glycemic control for adults with diabetes: <7.0 Ketones Auto test strip (U) [Mass/Vol]Ordered By: Chong Dixon on 11-21-2023 Ketones (U) [Mass/Vol] Trace Negative [facility] - UrinalysisOrder ed By: Chong Dixon on 11-21-2023 Hyaline casts LM Ql (Urine sed) 9-19 [LPF] 0-8 [facility] Nitrite Test strip Ql (U)Ord ered By: Chong Dixon on 11-21-2023 Nitrite Ql (U) Negative Negative [facility] Protein Auto test strip (U) [Mass/Vol]Ordered By: Chong Dixon on 11-21-2023 Protein (U) [Mass/Vol] 300 mg/dL Negative [facility] Specific gravity Auto test s trip (U) [Rel density]Ordered By: Chong Dixon on 11-21-2023 Specific gravity (U) [Rel density] 1.021 1.001-1.030 [facility] Squamous epithelial cells de tection in urine sediment by light microscopyOrdered By: Chong Dixon on 11-21-2023 Epithelial cells.squamous LM Ql (Urine sed) 0-1 [HPF] 0-2 [facility] Urine bacteria detection by automated methodOrdered By: Chong Dixon on 11-21-2023 Bacteria Auto Ql (U) None seen None Seen [facility] Urine clarity by refractomet ry automatedOrdered By: Chong Dixon on 11-21-2023 Clarity Refractometry automated (U) Cloudy Clear [facility] Urine culture routineOrdered By: Chong Dixon on 11-21-2023 Bacteria identified Cx Nom (U) No Growth 2 Days [facility] Urine glucose measurement by automated test strip (mass/volume)Ordered By: Chong Dixon on 11-21-2023 Glucose Auto test strip (U) [Mass/Vol] Normal mg/dL Normal [facility] Urine hemoglobin detection b y automated test stripOrdered By: Chong Dixon on 11-21-2023 Hemoglobin Auto test strip Ql (U) 2+ Negative [facility] Urine leukocyte esterase det ection by automated test stripOrdered By: Chong Dixon on 11-21-2023 Leukocyte esterase Auto test strip Ql (U) 2+ Negative [facility] Urobilinogen Auto test strip (U) [Mass/Vol]Ordered By: Chong Dixon on 11-21-2023 Urobilinogen (U) [Mass/Vol] Normal mg/dL Normal [facility] Yeast detection in urine sed iment by light microscopyOrdered By: Chong Dixon on 11-21-2023 Yeast LM Ql (Urine sed) None seen [HPF] None Seen [facility] pH Auto test strip (U)Ordere d By: Chong Dixon on 11-21-2023 pH (U) 5.0 [pH] 5.0-9.0 [facility] Activated partial thrombopla stin time (aPTT) in platelet poor plasma by coagulation aOrdered By: Chong Dixon on 11-20-2023 aPTT Coag (PPP) [Time] 31.0 s 25.1-36.5 [facility] Comment on above: A hematocrit value g reater than 55% may lead to inaccurate results in coagulation testing. Patients having hematocrit values >55% require a special collection tube for coagulation studies. Please contact the laboratory at [phone] for redraw instructions. Alanine aminotransferase [En zymatic activity/volume] in Serum or PlasmaOrdered By: Chong Dixon on 11-20-2023 ALT [Catalytic activity/Vol] 25 U/L 7-52 [facility] Albumin [Mass/volume] in Ser um or Plasma by Bromocresol green (BCG) dye binding methoOrdered By: Chong Dixon on 11-20-2023 Albumin BCG dye [Mass/Vol] 4.4 g/dL 3.5-5.7 [facility] Alkaline phosphatase [Enzyma tic activity/volume] in Serum or PlasmaOrdered By: Chong Dixon on 11-20-2023 ALP [Catalytic activity/Vol] 51 U/L 34-104 [facility] Anisocytosis LM Ql (Bld)Orde red By: Chong Dixon on 11-20-2023 Anisocytosis Ql (Bld) Moderate Fir [facility] Aspartate aminotransferase [ Enzymatic activity/volume] in Serum or PlasmaOrdered By: Chong Dixon on 11-20-2023 AST [Catalytic activity/Vol] 24 U/L 13-39 [facility] Bacterial blood cultureOrder ed By: Chong Dixon on 11-20-2023 Bacteria identified Cx Nom (Bld) NO GROWTH 5 DAYS [facility] Basophils Auto (Bld) [#/Vol] Ordered By: Chong Dixon on 11-20-2023 Basophils (Bld) [#/Vol] N/A [facility] Basophils/100 WBC Auto (Bld) Ordered By: Chong Dixon on 11-20-2023 Basophils/100 WBC (Bld) N/A [facility] Bilirubin.total [Mass/volume ] in Serum or PlasmaOrdered By: Chong Dixon on 11-20-2023 Bilirubin [Mass/Vol] 0.6 mg/dL 0.3-1.0 [facility] C reactive protein [Mass/vol ume] in Serum or PlasmaOrdered By: Chong Dixon on 11-20-2023 CRP [Mass/Vol] 3.9 mg/dL 0.0-0.5 [facility] COVID-19 Detected/Not Detect edOrdered By: Chong Dixon on 11-20-2023 SARS-CoV-2 (COVID-19) RNA SHAY+non-probe Ql (Nph) Not detected Not Detecte [facility] Comment on above: This is a duplicate RP2.1 COVID (PCR) result to be used for statistical tracking purpose only. Calcium [Mass/volume] in Ser um or PlasmaOrdered By: Chong Dixon on 11-20-2023 Calcium [Mass/Vol] 8.9 mg/dL 8.6-10.3 [facility] Carbon dioxide, total [Moles /volume] in Serum or PlasmaOrdered By: Chong Dixon on 11-20-2023 CO2 [Moles/Vol] 21.9 mmol/L 21.0-31.0 [facility] Chloride [Moles/volume] in S james or PlasmaOrdered By: Chong Dixon on 11-20-2023 Chloride [Moles/Vol] 103 mmol/L 98-107 [facility] Creatine kinase [Enzymatic a ctivity/volume] in Serum or PlasmaOrdered By: Chong Dixon on 11-20-2023 CK [Catalytic activity/Vol] 135 U/L 30-223 [facility] Creatinine [Mass/volume] in Serum or PlasmaOrdered By: Chong Dixon on 11-20-2023 Creatinine [Mass/Vol] 6.29 mg/dL 0.70-1.30 [facility] Eosinophils Auto (Bld) [#/Vo l]Ordered By: Chong Dixon on 11-20-2023 Eosinophils (Bld) [#/Vol] N/A [facility] Eosinophils/100 WBC Auto (Bl d)Ordered By: Chong Dixon on 11-20-2023 Eosinophils/100 WBC (Bld) N/A [facility] Erythrocyte distribution wid th Auto (RBC) [Ratio]Ordered By: Chong Dixon on 11-20-2023 Erythrocyte distribution width (RBC) [Ratio] 16.1 % 12.0-14.8 [facility] Erythrocyte sedimentation ra te by Photometric methodOrdered By: Chong Dixon on 11-20-2023 ESR Photometric method (Bld) [Velocity] 66 mm/hr 0-19 [facility] Globulin Calc (S) [Mass/Vol] Ordered By: Chong Dixon on 11-20-2023 Globulin (S) [Mass/Vol] 3.9 g/dL [facility] Glucose Glucometer (BldC) [M ass/Vol]Ordered By: Chong Dixon on 11-20-2023 Glucose [Mass/Vol] 111 mg/dL [facility] Comment on above: Random Glucose Refer ence Range is dependent on time and content of last meal. Glucose of more than 200 mg/dL in a nonstressed, ambulatory subject supports the diagnosis of Diabetes Mellitus. Glucose [Mass/volume] in Ser um or PlasmaOrdered By: Chong Dixon on 11-20-2023 Glucose [Mass/Vol] 121 mg/dL 70-100 [facility] Comment on above: ADA recommended refe rence rangeRandom Glucose Reference Range is dependent on time and content of last meal. Glucose of more than 200 mg/dL in a nonstressed, ambulatory subject supports the diagnosis of Diabetes Mellitus. Hematocrit Auto (Bld) [Volum e fraction]Ordered By: Chong Dixon on 11-20-2023 Hematocrit (Bld) [Volume fraction] 38.8 % 38.8-50.0 [facility] Hemoglobin [Mass/volume] in BloodOrdered By: Chong Dixon on 11-20-2023 Hemoglobin (Bld) [Mass/Vol] 12.5 g/dL 13.0-17.0 [facility] INR in Platelet poor plasma by Coagulation assayOrdered By: Chong Dixon on 11-20-2023 INR Coag (PPP) [Relative time] 1.1 {INR} [facility] Comment on above: INR Therapeutic Rang e [...] on 11-20-2023 Lactate [Moles/Vol] 1.7 mmol/L 0.5-2.[address] [facility] Leukocytes [#/volume] correc scott for nucleated erythrocytes in Blood by Automated counOrdered By: Chong Dixon on 11-20-2023 WBC corrected for nucl RBC Auto (Bld) [#/Vol] 19.5 10*3/uL 4.1-10.5 [facility] Lymphocytes Auto (Bld) [#/Vo l]Ordered By: Chong Dixon on 11-20-2023 Lymphocytes (Bld) [#/Vol] N/A [facility] Lymphocytes/100 WBC Auto (Bl d)Ordered By: Chong Dixon on 11-20-2023 Lymphocytes/100 WBC (Bld) N/A [facility] Lymphocytes/100 WBC Manual c nt (Bld)Ordered By: Chong Dixon on 11-20-2023 Lymphocytes/100 WBC (Bld) 1 % 18-42 [facility] MCH Auto (RBC) [Entitic mass ]Ordered By: Chong Dixon on 11-20-2023 MCH (RBC) [Entitic mass] 30.2 pg 27.5-35.2 [facility] MCHC Auto (RBC) [Mass/Vol]Or dered By: Chong Dixon on 11-20-2023 MCHC (RBC) [Mass/Vol] 32.2 g/dL 32.5-35.6 [facility] MCV Auto (RBC) [Entitic vol] Ordered By: Chong Dixon on 11-20-2023 MCV (RBC) [Entitic vol] 94.0 fL 83.5-101 [facility] Magnesium [Mass/volume] in S james or PlasmaOrdered By: Chong Dixon on 11-20-2023 Magnesium [Mass/Vol] 1.6 mg/dL 1.9-2.7 [facility] Microcytes LM Ql (Bld)Ordere d By: Chong Dixon on 11-20-2023 Microcytes Ql (Bld) Slight [facility] Monocyte distribution width [Entitic volume] in Blood by AutomatedOrdered By: Chong Dixon on 11-20-2023 Monocyte distribution width Auto (Bld) [Entitic vol] 25.63 % 0.00-20.00 [facility] Comment on above: The predictive value of MDW for identifying sepsis in patients with hematological abnormalities has not been established Monocytes Auto (Bld) [#/Vol] Ordered By: Chong Dixon on 11-20-2023 Monocytes (Bld) [#/Vol] N/A [facility] Monocytes/100 WBC Auto (Bld) Ordered By: Chong Dixon on 11-20-2023 Monocytes/100 WBC (Bld) N/A [facility] Monocytes/100 WBC Manual cnt (Bld)Ordered By: Chong Dixon on 11-20-2023 Monocytes/100 WBC (Bld) 4 % 2-11 [facility] Natriuretic peptide B [Mass/ Vol]Ordered By: Chong Dixon on 11-20-2023 Natriuretic peptide B (Bld) [Mass/Vol] 15.0 pg/mL 5-100 [facility] Neutrophils Auto (Bld) [#/Vo l]Ordered By: Chong Dixon on 11-20-2023 Neutrophils (Bld) [#/Vol] N/A [facility] Neutrophils/100 WBC Auto (Bl d)Ordered By: Chong Dixon on 11-20-2023 Neutrophils/100 WBC (Bld) N/A [facility] No Panel InformationOrdered By: Chong Dixon on 11-20-2023 Estimated GFR (CKD-EPI) 9.967 mL/Min [facility] Creatinine Clearance (Chem 21.03 [facility] Nucleated erythrocytes [Pres ence] in Blood by Automated countOrdered By: Chong Dixon on 11-20-2023 Nucleated RBC Auto Ql (Bld) N/A [facility] Platelet adequacy [Presence] in Blood by Light microscopyOrdered By: Chong Dixon on 11-20-2023 Platelets LM Ql (Bld) Normal Normal Fir [facility] Platelet mean volume Auto (B ld) [Entitic vol]Ordered By: Chong Dixon on 11-20-2023 Platelet mean volume (Bld) [Entitic vol] 8.0 fL 6.6-10.1 [facility] Platelet morphology finding [Identifier] in BloodOrdered By: Chong Dixon on 11-20-2023 Platelet morphology finding Nom (Bld) Normal Normal [facility] Platelets Auto (Bld) [#/Vol] Ordered By: Chong Dixon on 11-20-2023 Platelets (Bld) [#/Vol] 280 10*3/uL 150-450 [facility] Potassium [Moles/volume] in Serum or PlasmaOrdered By: Chong Dixon on 11-20-2023 Potassium [Moles/Vol] 4.2 mmol/L 3.5-5.1 [facility] Protein [Mass/volume] in Ser um or PlasmaOrdered By: Chong Dixon on 11-20-2023 Protein [Mass/Vol] 8.3 g/dL 6.4-8.9 [facility] Prothrombin time (PT)Ordered By: Chong Dixon on 11-20-2023 PT Coag (PPP) [Time] 12.8 s 9.0-12.9 [facility] Comment on above: A hematocrit value g reater than 55% may lead to inaccurate results in coagulation testing. Patients having hematocrit values >55% require a special collection tube for coagulation studies. Please contact the laboratory at [phone] for redraw instructions. RBC Auto (Bld) [#/Vol]Ordere d By: Chong Dixon on 11-20-2023 RBC (Bld) [#/Vol] 4.12 10*6/uL 3.90-5.[address] [facility] RBC morphologyOrdered By: Tavon Dixon on 11-20-2023 RBC morphology finding Nom (Bld) N/A [facility] Red blood cell stomatocyte d etectionOrdered By: Chong Dixon on 11-20-2023 Stomatocytes LM Ql (Bld) Slight [facility] Respiratory pathogens DNA an d RNA panel - Nasopharynx by SHAY with non-probe detectionOrdered By: Chong Dixon on 11-20-2023 Respiratory pathogens DNA and RNA panel SHAY+non-probe (Nph) [facility] Segmented neutrophils/100 WB C Manual cnt (Bld)Ordered By: Chong Dixon on 11-20-2023 Segmented neutrophils/100 WBC (Bld) 94 % 50-70 [facility] Serum or plasma albumin/glob ulin mass ratioOrdered By: Chong Dixon on 11-20-2023 Albumin/Globulin [Mass ratio] 1.1 {ratio} [facility] Serum or plasma anion gap de terminationOrdered By: Chong Dixon on 11-20-2023 Anion gap [Moles/Vol] 17.3 mmol/L 6.0-15.0 [facility] Sodium [Moles/volume] in Ser um or PlasmaOrdered By: Chong Dixon on 11-20-2023 Sodium [Moles/Vol] 138 mmol/L 136-145 [facility] Thyrotropin [Units/volume] i n Serum or PlasmaOrdered By: Chong Dixon on 11-20-2023 TSH Qn 1.36 m[IU]/L 0.45-5.33 [facility] Troponin I.cardiac [Mass/vol ume] in Serum or Plasma by Detection limit <= 0.01 ng/Ordered By: Chong Dixon on 11-20-2023 Troponin I.cardiac DL <= 0.01 ng/mL [Mass/Vol] 15.2 pg/mL 0.0-20.0 [facility] Urea nitrogen [Mass/volume] in Serum or PlasmaOrdered By: Chong Dixon on 11-20-2023 Urea nitrogen [Mass/Vol] 32 mg/dL 7-25 [facility] Variant lymphocytes/100 WBC Manual cnt (Bld)Ordered By: Chong Dixon on 11-20-2023 Variant lymphocytes/100 WBC (Bld) 1 % 0-12 [facility] WBC Auto (Bld) [#/Vol]Ordere d By: Chong Dixon on 11-20-2023 WBC (Bld) [#/Vol] 19.5 10*3/uL 4.1-10.[address] [facility] Glucose Glucometer (BldC) [M ass/Vol]Ordered By: Flakito High on 10-27-2023 Glucose [Mass/Vol] 106 mg/dL [facility] Comment on above: Random Glucose Refer ence Range is dependent on time and content of last meal. Glucose of more than 200 mg/dL in a nonstressed, ambulatory subject supports the diagnosis of Diabetes Mellitus. Hematocrit Auto (Bld) [Volum e fraction]Ordered By: Tyshawn Gardner on 10-27-2023 Hematocrit (Bld) [Volume fraction] 31.6 % 38.8-50.0 [facility] Hemoglobin [Mass/volume] in BloodOrdered By: Tyshawn Gardner on 10-27-2023 Hemoglobin (Bld) [Mass/Vol] 10.3 g/dL 13.0-17.0 [facility] No Panel InformationOrdered By: Flakito High on 10-27-2023 Bedside Glucose Comment Glu2: cleaned meter [facility] Potassium [Moles/volume] in Serum or PlasmaOrdered By: Tyshawn Gardner on 10-27-2023 Potassium [Moles/Vol] 4.5 mmol/L 3.5-5.1 [facility] Basic metabolic 1998 panelon 10-18-2023 Anion gap [Moles/Vol] 19.8 mmol/L High 6.0 - 15.0 [facility] Calcium [Mass/Vol] 9.2 mg/dL 8.6 - 10. 3 mg/dL [facility] Chloride [Moles/Vol] 103 mmol/L 98 - 10 7 mmol/L [facility] CO2 [Moles/Vol] 22.6 mmol/L 21.0 - 31.0 mmol/L [facility] Creatinine (U) [Mass/Vol] 9.63 mg/dL High 0.70 - 1.30 mg/dL [facility] GFR/1.73 sq M.predicted MDRD (S/P/Bld) [Vol rate/Area] 5.979 mL/min/{1.73_m2} [facility] Glucose [Mass/Vol] 105 mg/dL High 70 - 100 mg/dL [facility] Comment on above: Random Glucose Refer ence Range is dependent on time and content of last meal. Glucose of more than 200 mg/dL in a nonstressed, ambulatory subject supports the diagnosis of Diabetes Mellitus. ADA recommended reference range Interpretation and review of laboratory results Abnormal [facility] Potassium [Moles/Vol] 4.4 mmol/L 3.5 - 5.1 mmol/L [facility] Sodium [Moles/Vol] 141 mmol/L 136 - 145 mmol/L [facility] Urea nitrogen [Mass/Vol] 67 mg/dL High 7 - 25 mg/dL [facility] Basophils Auto (Bld) [#/Vol] Ordered By: Flakito High on 10-18-2023 Basophils (Bld) [#/Vol] 0.1 10*3/uL 0.0-0.2 [facility] Basophils/100 WBC Auto (Bld) Ordered By: Flakito High on 10-18-2023 Basophils/100 WBC (Bld) 0.9 % . [facility] Calcium [Mass/volume] in Ser um or PlasmaOrdered By: Flakito High on 10-18-2023 Calcium [Mass/Vol] 9.2 mg/dL 8.6-10.3 [facility] Carbon dioxide, total [Moles /volume] in Serum or PlasmaOrdered By: Flakito High on 10-18-2023 CO2 [Moles/Vol] 22.6 mmol/L 21.0-31.0 [facility] Chloride [Moles/volume] in S james or PlasmaOrdered By: Flakito High on 10-18-2023 Chloride [Moles/Vol] 103 mmol/L 98-107 [facility] Creatinine [Mass/volume] in Serum or PlasmaOrdered By: Flakito High on 10-18-2023 Creatinine [Mass/Vol] 9.63 mg/dL 0.70-1.30 [facility] Eosinophils Auto (Bld) [#/Vo l]Ordered By: Flakito High on 10-18-2023 Eosinophils (Bld) [#/Vol] 0.5 10*3/uL 0.0-0.45 [facility] Eosinophils/100 WBC Auto (Bl d)Ordered By: Flakito High on 10-18-2023 Eosinophils/100 WBC (Bld) 4.2 % . [facility] Erythrocyte distribution wid th Auto (RBC) [Ratio]Ordered By: Flakito iHgh on 10-18-2023 Erythrocyte distribution width (RBC) [Ratio] 15.5 % 12.0-14.8 [facility] Glucose [Mass/volume] in Ser um or PlasmaOrdered By: Flakito High on 10-18-2023 Glucose [Mass/Vol] 105 mg/dL 70-100 [facility] Comment on above: ADA recommended refe rence rangeRandom Glucose Reference Range is dependent on time and content of last meal. Glucose of more than 200 mg/dL in a nonstressed, ambulatory subject supports the diagnosis of Diabetes Mellitus. Hematocrit Auto (Bld) [Volum e fraction]Ordered By: Flakito High on 10-18-2023 Hematocrit (Bld) [Volume fraction] 32.0 % 38.8-50.0 [facility] Hemoglobin [Mass/volume] in BloodOrdered By: Flakito High on 10-18-2023 Hemoglobin (Bld) [Mass/Vol] 10.6 g/dL 13.0-17.0 [facility] Leukocytes [#/volume] correc scott for nucleated erythrocytes in Blood by Automated counOrdered By: Flakito High on 10-18-2023 WBC corrected for nucl RBC Auto (Bld) [#/Vol] 10.8 10*3/uL 4.1-10.5 [facility] Lymphocytes Auto (Bld) [#/Vo l]Ordered By: Flakito High on 10-18-2023 Lymphocytes (Bld) [#/Vol] 1.4 10*3/uL 1.00-4.8 [facility] Lymphocytes/100 WBC Auto (Bl d)Ordered By: Flakito High on 10-18-2023 Lymphocytes/100 WBC (Bld) 12.5 % . [facility] MCH Auto (RBC) [Entitic mass ]Ordered By: Flakito High on 10-18-2023 MCH (RBC) [Entitic mass] 31.2 pg 27.5-35.2 [facility] MCHC Auto (RBC) [Mass/Vol]Or dered By: Flakito High on 10-18-2023 MCHC (RBC) [Mass/Vol] 33.2 g/dL 32.5-35.6 [facility] MCV Auto (RBC) [Entitic vol] Ordered By: Flakito High on 10-18-2023 MCV (RBC) [Entitic vol] 93.8 fL 83.5-101 [facility] Monocytes Auto (Bld) [#/Vol] Ordered By: Flakito High on 10-18-2023 Monocytes (Bld) [#/Vol] 0.8 10*3/uL 0.0-0.8 [facility] Monocytes/100 WBC Auto (Bld) Ordered By: Flakito High on 10-18-2023 Monocytes/100 WBC (Bld) 7.8 % . [facility] Neutrophils Auto (Bld) [#/Vo l]Ordered By: Flakito High on 10-18-2023 Neutrophils (Bld) [#/Vol] 8.1 10*3/uL 1.8-7.7 [facility] Neutrophils/100 WBC Auto (Bl d)Ordered By: Flakito High on 10-18-2023 Neutrophils/100 WBC (Bld) 74.6 % . [facility] No Panel InformationOrdered By: Flakito High on 10-18-2023 Estimated GFR (CKD-EPI) 5.979 mL/Min [facility] Creatinine Clearance (Chem N/A [facility] Nucleated erythrocytes [Pres ence] in Blood by Automated countOrdered By: Flakito High on 10-18-2023 Nucleated RBC Auto Ql (Bld) 0.1 /100{WBC} 0-0.5 [facility] Platelet mean volume Auto (B ld) [Entitic vol]Ordered By: Flakito High on 10-18-2023 Platelet mean volume (Bld) [Entitic vol] 7.4 fL 6.6-10.1 [facility] Platelets Auto (Bld) [#/Vol] Ordered By: Flakito High on 10-18-2023 Platelets (Bld) [#/Vol] 391 10*3/uL 150-450 [facility] Potassium [Moles/volume] in Serum or PlasmaOrdered By: Flakito High on 10-18-2023 Potassium [Moles/Vol] 4.4 mmol/L 3.5-5.1 [facility] RBC Auto (Bld) [#/Vol]Ordere d By: Flakito High on 10-18-2023 RBC (Bld) [#/Vol] 3.41 10*6/uL 3.90-5.[address] [facility] Serum or plasma anion gap de terminationOrdered By: Flakito High on 10-18-2023 Anion gap [Moles/Vol] 19.8 mmol/L 6.0-15.0 [facility] Sodium [Moles/volume] in Ser um or PlasmaOrdered By: Flakito High on 10-18-2023 Sodium [Moles/Vol] 141 mmol/L 136-145 [facility] Urea nitrogen [Mass/volume] in Serum or PlasmaOrdered By: Flakito High on 10-18-2023 Urea nitrogen [Mass/Vol] 67 mg/dL 7-25 [facility] WBC Auto (Bld) [#/Vol]Ordere d By: Flakito High on 10-18-2023 WBC (Bld) [#/Vol] 10.8 10*3/uL 4.1-10.[address] [facility] Alanine aminotransferase [En zymatic activity/volume] in Serum or PlasmaOrdered By: Chintan Sweet on 09-25-2023 ALT [Catalytic activity/Vol] 22 U/L 7-52 [facility] Albumin [Mass/volume] in Ser um or Plasma by Bromocresol green (BCG) dye binding methoOrdered By: Chintan Sweet on 09-25-2023 Albumin BCG dye [Mass/Vol] 4.1 g/dL 3.5-5.7 [facility] Alkaline phosphatase [Enzyma tic activity/volume] in Serum or PlasmaOrdered By: Chintan Sweet on 09-25-2023 ALP [Catalytic activity/Vol] 40 U/L 34-104 [facility] Aspartate aminotransferase [ Enzymatic activity/volume] in Serum or PlasmaOrdered By: Chintan Sweet on 09-25-2023 AST [Catalytic activity/Vol] 22 U/L 13-39 [facility] Basophils Auto (Bld) [#/Vol] Ordered By: Chintan Sweet on 09-25-2023 Basophils (Bld) [#/Vol] 0.1 10*3/uL 0.0-0.2 [facility] Basophils/100 WBC Auto (Bld) Ordered By: Chintan wSeet on 09-25-2023 Basophils/100 WBC (Bld) 1.1 % . [facility] Bilirubin.total [Mass/volume ] in Serum or PlasmaOrdered By: Chintan Sweet on 09-25-2023 Bilirubin [Mass/Vol] 0.3 mg/dL 0.3-1.0 [facility] COVID CepheidOrdered By: Joyce Sweet on 09-25-2023 SARS-CoV-2 (COVID-19) Ab IA Ql Negative Negative [facility] Comment on above: This is a duplicate Cepheid Xpert Xpress CoV-2/Flu/RSV Plus RNA by RT-PCR result to be used for statistical tracking purpose only. SARS-CoV-2 (COVID-19) RNA SHAY+probe Ql (Unsp spec) [facility] SARS-CoV-2 (COVID-19) RNA SHAY+probe Ql (Unsp spec) [facility] Calcium [Mass/volume] in Ser um or PlasmaOrdered By: Chintan Sweet on 09-25-2023 Calcium [Mass/Vol] 8.6 mg/dL 8.6-10.3 [facility] Carbon dioxide, total [Moles /volume] in Serum or PlasmaOrdered By: Chintan Sweet on 09-25-2023 CO2 [Moles/Vol] 22.6 mmol/L 21.0-31.0 [facility] Chloride [Moles/volume] in S james or PlasmaOrdered By: Chintan Sweet on 09-25-2023 Chloride [Moles/Vol] 102 mmol/L 98-107 [facility] Creatinine [Mass/volume] in Serum or PlasmaOrdered By: Chintan Sweet on 09-25-2023 Creatinine [Mass/Vol] 5.80 mg/dL 0.70-1.30 [facility] Eosinophils Auto (Bld) [#/Vo l]Ordered By: Chintan Sweet on 09-25-2023 Eosinophils (Bld) [#/Vol] 0.4 10*3/uL 0.0-0.45 [facility] Eosinophils/100 WBC Auto (Bl d)Ordered By: Chintan Sweet on 09-25-2023 Eosinophils/100 WBC (Bld) 3.4 % . [facility] Erythrocyte distribution wid th Auto (RBC) [Ratio]Ordered By: Chintan Sweet on 09-25-2023 Erythrocyte distribution width (RBC) [Ratio] 14.7 % 12.0-14.8 [facility] Globulin Calc (S) [Mass/Vol] Ordered By: Chintan Sweet on 09-25-2023 Globulin (S) [Mass/Vol] 3.7 g/dL [facility] Glucose [Mass/volume] in Ser um or PlasmaOrdered By: Chintan Sweet on 09-25-2023 Glucose [Mass/Vol] 129 mg/dL 70-100 [facility] Comment on above: ADA recommended refe rence rangeRandom Glucose Reference Range is dependent on time and content of last meal. Glucose of more than 200 mg/dL in a nonstressed, ambulatory subject supports the diagnosis of Diabetes Mellitus. Hematocrit Auto (Bld) [Volum e fraction]Ordered By: Chintan Sweet on 09-25-2023 Hematocrit (Bld) [Volume fraction] 28.0 % 38.8-50.0 [facility] Hemoglobin [Mass/volume] in BloodOrdered By: Chintan Sweet on 09-25-2023 Hemoglobin (Bld) [Mass/Vol] 9.5 g/dL 13.0-17.0 [facility] Leukocytes [#/volume] correc scott for nucleated erythrocytes in Blood by Automated counOrdered By: Chintan Sweet on 09-25-2023 WBC corrected for nucl RBC Auto (Bld) [#/Vol] 11.7 10*3/uL 4.1-10.5 [facility] Lymphocytes Auto (Bld) [#/Vo l]Ordered By: Chintan Sweet on 09-25-2023 Lymphocytes (Bld) [#/Vol] 1.7 10*3/uL 1.00-4.8 [facility] Lymphocytes/100 WBC Auto (Bl d)Ordered By: Chintan Sweet on 09-25-2023 Lymphocytes/100 WBC (Bld) 14.2 % . [facility] MCH Auto (RBC) [Entitic mass ]Ordered By: Chintan Sweet on 09-25-2023 MCH (RBC) [Entitic mass] 31.2 pg 27.5-35.2 [facility] MCHC Auto (RBC) [Mass/Vol]Or dered By: Chintan Sweet on 09-25-2023 MCHC (RBC) [Mass/Vol] 34.1 g/dL 32.5-35.6 [facility] MCV Auto (RBC) [Entitic vol] Ordered By: Chintan Sweet on 09-25-2023 MCV (RBC) [Entitic vol] 91.4 fL 83.5-101 [facility] Monocyte distribution width [Entitic volume] in Blood by AutomatedOrdered By: Chintan Sweet on 09-25-2023 Monocyte distribution width Auto (Bld) [Entitic vol] 21.57 % 0.00-20.00 [facility] Comment on above: For adults in ED, MD W > 20.0 may be associated with a higher risk of sepsis during the first 12 hrs of hospital admission Monocytes Auto (Bld) [#/Vol] Ordered By: Chintan Sweet on 09-25-2023 Monocytes (Bld) [#/Vol] 0.8 10*3/uL 0.0-0.8 [facility] Monocytes/100 WBC Auto (Bld) Ordered By: Chintan Sweet on 09-25-2023 Monocytes/100 WBC (Bld) 6.8 % . [facility] Natriuretic peptide B [Mass/ Vol]Ordered By: Chintan Sweet on 09-25-2023 Natriuretic peptide B (Bld) [Mass/Vol] 16.0 pg/mL 5-100 [facility] Neutrophils Auto (Bld) [#/Vo l]Ordered By: Chintan Sweet on 09-25-2023 Neutrophils (Bld) [#/Vol] 8.7 10*3/uL 1.8-7.7 [facility] Neutrophils/100 WBC Auto (Bl d)Ordered By: Chintan Sweet on 09-25-2023 Neutrophils/100 WBC (Bld) 74.5 % . [facility] No Panel InformationOrdered By: Chintan Sweet on 09-25-2023 Estimated GFR (CKD-EPI) 10.985 mL/Min [facility] Creatinine Clearance (Chem 23.13 [facility] Nucleated erythrocytes [Pres ence] in Blood by Automated countOrdered By: Chintan Sweet on 09-25-2023 Nucleated RBC Auto Ql (Bld) 0.1 /100{WBC} 0-0.5 [facility] Platelet mean volume Auto (B ld) [Entitic vol]Ordered By: Chintan Sweet on 09-25-2023 Platelet mean volume (Bld) [Entitic vol] 7.9 fL 6.6-10.1 [facility] Platelets Auto (Bld) [#/Vol] Ordered By: Chintan Sweet on 09-25-2023 Platelets (Bld) [#/Vol] 330 10*3/uL 150-450 [facility] Potassium [Moles/volume] in Serum or PlasmaOrdered By: Chintan Sweet on 09-25-2023 Potassium [Moles/Vol] 3.8 mmol/L 3.5-5.1 [facility] Protein [Mass/volume] in Ser um or PlasmaOrdered By: Chintan Sweet on 09-25-2023 Protein [Mass/Vol] 7.8 g/dL 6.4-8.9 [facility] RBC Auto (Bld) [#/Vol]Ordere d By: Chintan Sweet on 09-25-2023 RBC (Bld) [#/Vol] 3.06 10*6/uL 3.90-5.[address] [facility] Serum or plasma albumin/glob ulin mass ratioOrdered By: Chintan Sweet on 09-25-2023 Albumin/Globulin [Mass ratio] 1.1 {ratio} [facility] Serum or plasma anion gap de terminationOrdered By: Chintan Sweet on 09-25-2023 Anion gap [Moles/Vol] 14.2 mmol/L 6.0-15.0 [facility] Sodium [Moles/volume] in Ser um or PlasmaOrdered By: Chintan Sweet on 09-25-2023 Sodium [Moles/Vol] 135 mmol/L 136-145 [facility] Troponin I.cardiac [Mass/vol ume] in Serum or Plasma by Detection limit <= 0.01 ng/Ordered By: Chintan Sweet on 09-25-2023 Troponin I.cardiac DL <= 0.01 ng/mL [Mass/Vol] 55.3 pg/mL 0.0-20.0 [facility] Comment on above: Critical Result : Ca lled to and read back by: JUDAH LOWRY at: 09/25/2023 23:49:03 by:CHARLIE Urea nitrogen [Mass/volume] in Serum or PlasmaOrdered By: Chintan Sweet on 09-25-2023 Urea nitrogen [Mass/Vol] 43 mg/dL 7-25 [facility] WBC Auto (Bld) [#/Vol]Ordere d By: Chintan Sweet on 09-25-2023 WBC (Bld) [#/Vol] 11.7 10*3/uL 4.1-10.[address] [facility] Basophils Auto (Bld) [#/Vol] Ordered By: Moses Boateng on 09-16-2023 Basophils (Bld) [#/Vol] 0.0 10*3/uL 0.0-0.2 [facility] Basophils/100 WBC Auto (Bld) Ordered By: Moses Boateng on 09-16-2023 Basophils/100 WBC (Bld) 0.4 % . [facility] Calcium [Mass/volume] in Ser um or PlasmaOrdered By: Moses Boateng on 09-16-2023 Calcium [Mass/Vol] 8.2 mg/dL 8.6-10.3 [facility] Carbon dioxide, total [Moles /volume] in Serum or PlasmaOrdered By: Moses Boateng on 09-16-2023 CO2 [Moles/Vol] 23.5 mmol/L 21.0-31.0 [facility] Chloride [Moles/volume] in S james or PlasmaOrdered By: Moses Boateng on 09-16-2023 Chloride [Moles/Vol] 106 mmol/L 98-107 [facility] Creatinine [Mass/volume] in Serum or PlasmaOrdered By: Moses Boateng on 09-16-2023 Creatinine [Mass/Vol] 10.67 mg/dL 0.70-1.30 [facility] Eosinophils Auto (Bld) [#/Vo l]Ordered By: Moses Boateng on 09-16-2023 Eosinophils (Bld) [#/Vol] 0.4 10*3/uL 0.0-0.45 [facility] Eosinophils/100 WBC Auto (Bl d)Ordered By: Moses Boateng on 09-16-2023 Eosinophils/100 WBC (Bld) 3.5 % . [facility] Erythrocyte distribution wid th Auto (RBC) [Ratio]Ordered By: Moses Boateng on 09-16-2023 Erythrocyte distribution width (RBC) [Ratio] 14.9 % 12.0-14.8 [facility] Glucose Glucometer (BldC) [M ass/Vol]Ordered By: Ramirez Jean on 09-16-2023 Glucose [Mass/Vol] 103 mg/dL [facility] Comment on above: Random Glucose Refer ence Range is dependent on time and content of last meal. Glucose of more than 200 mg/dL in a nonstressed, ambulatory subject supports the diagnosis of Diabetes Mellitus. Glucose [Mass/volume] in Ser um or PlasmaOrdered By: Moses Boateng on 09-16-2023 Glucose [Mass/Vol] 93 mg/dL 70-100 [facility] Comment on above: ADA recommended refe rence rangeRandom Glucose Reference Range is dependent on time and content of last meal. Glucose of more than 200 mg/dL in a nonstressed, ambulatory subject supports the diagnosis of Diabetes Mellitus. Hematocrit Auto (Bld) [Volum e fraction]Ordered By: Moses Boateng on 09-16-2023 Hematocrit (Bld) [Volume fraction] 26.0 % 38.8-50.0 [facility] Hemoglobin [Mass/volume] in BloodOrdered By: Moses Boateng on 09-16-2023 Hemoglobin (Bld) [Mass/Vol] 8.7 g/dL 13.0-17.0 [facility] Leukocytes [#/volume] correc scott for nucleated erythrocytes in Blood by Automated counOrdered By: Moses Boateng on 09-16-2023 WBC corrected for nucl RBC Auto (Bld) [#/Vol] 11.3 10*3/uL 4.1-10.5 [facility] Lymphocytes Auto (Bld) [#/Vo l]Ordered By: Moses Boateng on 09-16-2023 Lymphocytes (Bld) [#/Vol] 1.7 10*3/uL 1.00-4.8 [facility] Lymphocytes/100 WBC Auto (Bl d)Ordered By: Moses Boateng on 09-16-2023 Lymphocytes/100 WBC (Bld) 14.7 % . [facility] MCH Auto (RBC) [Entitic mass ]Ordered By: Moses Boateng on 09-16-2023 MCH (RBC) [Entitic mass] 30.7 pg 27.5-35.2 [facility] MCHC Auto (RBC) [Mass/Vol]Or dered By: Moses Boateng on 09-16-2023 MCHC (RBC) [Mass/Vol] 33.4 g/dL 32.5-35.6 [facility] MCV Auto (RBC) [Entitic vol] Ordered By: Moses Boateng on 09-16-2023 MCV (RBC) [Entitic vol] 91.9 fL 83.5-101 [facility] Monocytes Auto (Bld) [#/Vol] Ordered By: Moses Boateng on 09-16-2023 Monocytes (Bld) [#/Vol] 0.8 10*3/uL 0.0-0.8 [facility] Monocytes/100 WBC Auto (Bld) Ordered By: Moses Boateng on 09-16-2023 Monocytes/100 WBC (Bld) 7.3 % . [facility] Neutrophils Auto (Bld) [#/Vo l]Ordered By: Moses Boateng on 09-16-2023 Neutrophils (Bld) [#/Vol] 8.4 10*3/uL 1.8-7.7 [facility] Neutrophils/100 WBC Auto (Bl d)Ordered By: Moses Boateng on 09-16-2023 Neutrophils/100 WBC (Bld) 74.1 % . [facility] No Panel InformationOrdered By: Moses Boateng on 09-16-2023 Estimated GFR (CKD-EPI) 5.286 mL/Min [facility] Creatinine Clearance (Chem 12.72 [facility] Nucleated erythrocytes [Pres ence] in Blood by Automated countOrdered By: Moses Boateng on 09-16-2023 Nucleated RBC Auto Ql (Bld) 0.0 /100{WBC} 0-0.5 [facility] Platelet mean volume Auto (B ld) [Entitic vol]Ordered By: Moses Boateng on 09-16-2023 Platelet mean volume (Bld) [Entitic vol] 8.0 fL 6.6-10.1 [facility] Platelets Auto (Bld) [#/Vol] Ordered By: Moses Boateng on 09-16-2023 Platelets (Bld) [#/Vol] 247 10*3/uL 150-450 [facility] Potassium [Moles/volume] in Serum or PlasmaOrdered By: Moses Boateng on 09-16-2023 Potassium [Moles/Vol] 4.3 mmol/L 3.5-5.1 [facility] RBC Auto (Bld) [#/Vol]Ordere d By: Moses Boateng on 09-16-2023 RBC (Bld) [#/Vol] 2.83 10*6/uL 3.90-5.[address] [facility] Serum or plasma anion gap de terminationOrdered By: Moses Boateng on 09-16-2023 Anion gap [Moles/Vol] 17.8 mmol/L 6.0-15.0 [facility] Sodium [Moles/volume] in Ser um or PlasmaOrdered By: Moses Boateng on 09-16-2023 Sodium [Moles/Vol] 143 mmol/L 136-145 [facility] Urea nitrogen [Mass/volume] in Serum or PlasmaOrdered By: Moses Boateng on 09-16-2023 Urea nitrogen [Mass/Vol] 110 mg/dL 7-25 [facility] WBC Auto (Bld) [#/Vol]Ordere d By: Moses Boateng on 09-16-2023 WBC (Bld) [#/Vol] 11.3 10*3/uL 4.1-10.[address] [facility] Alanine aminotransferase [En zymatic activity/volume] in Serum or PlasmaOrdered By: Michelle Kennedy on 06-26-2023 ALT [Catalytic activity/Vol] 16 U/L 7-52 [facility] Albumin [Mass/volume] in Ser um or Plasma by Bromocresol green (BCG) dye binding methoOrdered By: Michelle Kennedy on 06-26-2023 Albumin BCG dye [Mass/Vol] 3.8 g/dL 3.5-5.7 [facility] Alkaline phosphatase [Enzyma tic activity/volume] in Serum or PlasmaOrdered By: Michelle Kennedy on 06-26-2023 ALP [Catalytic activity/Vol] 63 U/L 34-104 [facility] Aspartate aminotransferase [ Enzymatic activity/volume] in Serum or PlasmaOrdered By: Michelle Kennedy on 06-26-2023 AST [Catalytic activity/Vol] 11 U/L 13-39 [facility] Bilirubin.total [Mass/volume ] in Serum or PlasmaOrdered By: Michelle Kennedy on 06-26-2023 Bilirubin [Mass/Vol] 0.3 mg/dL 0.3-1.0 [facility] Calcium [Mass/volume] in Ser um or PlasmaOrdered By: Michelle Kennedy on 06-26-2023 Calcium [Mass/Vol] 8.4 mg/dL 8.6-10.3 [facility] Carbon dioxide, total [Moles /volume] in Serum or PlasmaOrdered By: Michelle Kennedy on 06-26-2023 CO2 [Moles/Vol] 24.9 mmol/L 21.0-31.0 [facility] Chloride [Moles/volume] in S james or PlasmaOrdered By: Michelle Kennedy on 06-26-2023 Chloride [Moles/Vol] 107 mmol/L 98-107 [facility] Cholesterol [Mass/volume] in Serum or PlasmaOrdered By: Michelle Kennedy on 06-26-2023 Cholesterol [Mass/Vol] 143 mg/dL 140-200 [facility] Comment on above: Chol less than 200 m g/dl low riskChol 201-239 mg/dl borderline riskChol 240 mg/dl and greater high risk Cholesterol in LDL Calc [Mas s/Vol]Ordered By: Michelle Kennedy on 06-26-2023 Cholesterol in LDL [Mass/Vol] 72 mg/dL 0-100 [facility] Comment on above: LDL ATP III CLASSIFI CATIONLDL less than 100 mg/dL OptimalLDL 100-129 mg/dL Near or above optimalLDL 130-159 mg/dL Borderline highLDL 160-189 mg/dL HighLDL greater than 189 mg/dL Very high Cholesterol in VLDL Calc [Ma ss/Vol]Ordered By: Michelle Kennedy on 06-26-2023 Cholesterol in VLDL [Mass/Vol] 40 mg/dL [facility] Creatinine [Mass/volume] in Serum or PlasmaOrdered By: Michelle Kennedy on 06-26-2023 Creatinine [Mass/Vol] 8.14 mg/dL 0.70-1.30 [facility] Globulin Calc (S) [Mass/Vol] Ordered By: Michelle Kennedy on 06-26-2023 Globulin (S) [Mass/Vol] 3.2 g/dL [facility] Glucose [Mass/volume] in Ser um or PlasmaOrdered By: Michelle Kennedy on 06-26-2023 Glucose [Mass/Vol] 117 mg/dL 70-100 [facility] Comment on above: ADA recommended refe rence rangeRandom Glucose Reference Range is dependent on time and content of last meal. Glucose of more than 200 mg/dL in a nonstressed, ambulatory subject supports the diagnosis of Diabetes Mellitus. No Panel InformationOrdered By: Michelle Kennedy on 06-26-2023 C-Peptide 3.3 ng/mL 1.1-4.4 [facility] Comment on above: C-Peptide reference interval is for fasting patients.Performed at: [email or web address] [place] [id number] Director: Omar Frederick PhD, Phone: [phone] Estimated GFR (CKD-EPI) 7.315 mL/Min [facility] Creatinine Clearance (Chem N/A [facility] Potassium [Moles/volume] in Serum or PlasmaOrdered By: Michelle Kennedy on 06-26-2023 Potassium [Moles/Vol] 4.0 mmol/L 3.5-5.1 [facility] Protein [Mass/volume] in Ser um or PlasmaOrdered By: Michelle Kennedy on 06-26-2023 Protein [Mass/Vol] 7.0 g/dL 6.4-8.9 [facility] Serum or plasma albumin/glob ulin mass ratioOrdered By: Ashlya Marcia on 06-26-2023 Albumin/Globulin [Mass ratio] 1.2 {ratio} [facility] Serum or plasma anion gap de terminationOrdered By: Ashlya Marcia on 06-26-2023 Anion gap [Moles/Vol] 13.1 mmol/L 6.0-15.0 [facility] Serum or plasma high density lipoprotein (HDL) cholesterol measurementOrdered By: Michelle Kennedy on 06-26-2023 Cholesterol in HDL [Mass/Vol] 31 mg/dL 23-92 [facility] Comment on above: HDL CHOL ATP-III CLA SSIFICATION Cardiovascular RiskHDL > or equal to 60 mg/dL LOWHDL < 40 mg/dL HIGH Serum or plasma total choles terol/high density lipoprotein (HDL) cholesterol mass ratOrdered By: Michelle Kennedy on 06-26-2023 Cholesterol.total/Chol esterol in HDL [Mass ratio] 4.6 {ratio} <5.0 [facility] Sodium [Moles/volume] in Ser um or PlasmaOrdered By: Michelle Kennedy on 06-26-2023 Sodium [Moles/Vol] 141 mmol/L 136-145 [facility] Triglyceride [Mass/volume] i n Serum or PlasmaOrdered By: Michelle Kennedy on 06-26-2023 Triglyceride [Mass/Vol] 200 mg/dL 0-149 [facility] Comment on above: TRIG ATP III CLASSIF ICATIONTRIG less than 150 mg/dL NormalTRIG 150-199 mg/dL Borderline highTRIG 200-500 mg/dL High TRIG greater than 500 mg/dL Very highStandard traceable to the Center for Disease Conrtrol and Prevention (CDC) test method. Urea nitrogen [Mass/volume] in Serum or PlasmaOrdered By: Michelle Kennedy on 06-26-2023 Urea nitrogen [Mass/Vol] 79 mg/dL 7-25 [facility] Albumin [Mass/volume] in Ser um or PlasmaOrdered By: Yocasta Villalba on 11-07-2022 Albumin [Mass/Vol] 2.9 g/dL 3.2-5.5 [facility] Basophils Auto (Bld) [#/Vol] Ordered By: Chintan Brewster on 11-07-2022 Basophils (Bld) [#/Vol] 0.0 10*3/uL 0.0-0.2 [facility] Basophils/100 WBC Auto (Bld) Ordered By: Chintan Brewster on 11-07-2022 Basophils/100 WBC (Bld) 0.1 % . [facility] Calcium [Mass/volume] in Ser um or PlasmaOrdered By: Yocasta Villalba on 11-07-2022 Calcium [Mass/Vol] 8.2 mg/dL 8.2-10.2 [facility] Carbon dioxide, total [Moles /volume] in Serum or PlasmaOrdered By: Yocasta Villalba on 11-07-2022 CO2 [Moles/Vol] 16.2 mmol/L 22.0-30.0 [facility] Chloride [Moles/volume] in S james or PlasmaOrdered By: Yocasta Villalba on 11-07-2022 Chloride [Moles/Vol] 109 mmol/L 95-114 [facility] Creatinine and Glomerular fi ltration rate.predicted panel (S/P/Bld)Ordered By: Yocasta Villalba on 11-07-2022 Creatinine [Mass/Vol] 6.66 mg/dL 0.64-1.27 [facility] Eosinophils Auto (Bld) [#/Vo l]Ordered By: Chintan Brewster on 11-07-2022 Eosinophils (Bld) [#/Vol] 0.0 10*3/uL 0.0-0.45 [facility] Eosinophils/100 WBC Auto (Bl d)Ordered By: Chintan Brewster on 11-07-2022 Eosinophils/100 WBC (Bld) 0.1 % . [facility] Erythrocyte distribution wid th Auto (RBC) [Ratio]Ordered By: Chintan Brewster on 11-07-2022 Erythrocyte distribution width (RBC) [Ratio] 14.2 % 12.0-14.8 [facility] Estimated glomerular filtrat ion rate (GFR) non- AmericanOrdered By: Yocasta Villalba on 11-07-2022 GFR/1.73 sq M.predicted among non-blacks MDRD (S/P/Bld) [Vol rate/Area] 9 mL/Min [facility] Glucose Glucometer (BldC) [M ass/Vol]Ordered By: Chintan Brewster on 11-07-2022 Glucose [Mass/Vol] 230 mg/dL [facility] Comment on above: Random Glucose Refer ence Range is dependent on time and content of last meal. Glucose of more than 200 mg/dL in a nonstressed, ambulatory subject supports the diagnosis of Diabetes Mellitus. Glucose [Mass/volume] in Ser um or PlasmaOrdered By: Yocasta Villalba on 11-07-2022 Glucose [Mass/Vol] 239 mg/dL 70-100 [facility] Comment on above: Delta: 340 on DA recommended reference rangeRandom Glucose Reference Range is dependent on time and content of last meal. Glucose of more than 200 mg/dL in a nonstressed, ambulatory subject supports the diagnosis of Diabetes Mellitus. Hematocrit Auto (Bld) [Volum e fraction]Ordered By: Chintan Brewster on 11-07-2022 Hematocrit (Bld) [Volume fraction] 27.0 % 38.8-50.0 [facility] Hemoglobin [Mass/volume] in BloodOrdered By: Chintan Brewster on 11-07-2022 Hemoglobin (Bld) [Mass/Vol] 8.8 g/dL 13.0-17.0 [facility] Leukocytes [#/volume] correc scott for nucleated erythrocytes in Blood by Automated counOrdered By: Chintan Brewster on 11-07-2022 WBC corrected for nucl RBC Auto (Bld) [#/Vol] 12.4 10*3/uL 4.1-10.5 [facility] Lymphocytes Auto (Bld) [#/Vo l]Ordered By: Chintan Brewster on 11-07-2022 Lymphocytes (Bld) [#/Vol] 0.7 10*3/uL 1.00-4.8 [facility] Lymphocytes/100 WBC Auto (Bl d)Ordered By: Chintan Brewster on 11-07-2022 Lymphocytes/100 WBC (Bld) 5.8 % . [facility] MCH Auto (RBC) [Entitic mass ]Ordered By: Chintan Brewster on 11-07-2022 MCH (RBC) [Entitic mass] 29.7 pg 27.5-35.2 [facility] MCHC Auto (RBC) [Mass/Vol]Or dered By: Chintan Brewster on 11-07-2022 MCHC (RBC) [Mass/Vol] 32.7 g/dL 32.5-35.6 [facility] MCV Auto (RBC) [Entitic vol] Ordered By: Chintan Brewster on 11-07-2022 MCV (RBC) [Entitic vol] 90.8 fL 83.5-101 [facility] Monocytes Auto (Bld) [#/Vol] Ordered By: Chintan Brewster on 11-07-2022 Monocytes (Bld) [#/Vol] 0.8 10*3/uL 0.0-0.8 [facility] Monocytes/100 WBC Auto (Bld) Ordered By: Chintan Brewster on 11-07-2022 Monocytes/100 WBC (Bld) 6.5 % . [facility] Neutrophils Auto (Bld) [#/Vo l]Ordered By: Chintan Brewster on 11-07-2022 Neutrophils (Bld) [#/Vol] 10.9 10*3/uL 1.8-7.7 [facility] Neutrophils/100 WBC Auto (Bl d)Ordered By: Chintan Brewster on 11-07-2022 Neutrophils/100 WBC (Bld) 87.5 % . [facility] No Panel InformationOrdered By: Yocasta Villalba on 11-07-2022 Estimated GFR () 11 mL/Min [facility] Comment on above: GFR estimated refere nce range: According to KDOQI guidelines, <60 ml/min/1.73m2 is sufficient to diagnose a patient with chronic kidney disease. Pharmacy Creatinine Clearance (Chem 19.91 [facility] No Panel InformationOrdered By: Chintan Brewster on 11-07-2022 Bedside Glucose Comment Glu2: cleaned meter [facility] Bedside Glucose #2 Comment Will repeat test [facility] Nucleated erythrocytes [Pres ence] in Blood by Automated countOrdered By: Chintan Brewster on 11-07-2022 Nucleated RBC Auto Ql (Bld) 0.1 /100{WBC} 0-0.5 [facility] Phosphate [Mass/volume] in S james or PlasmaOrdered By: Yocasta Villalba on 11-07-2022 Phosphate [Mass/Vol] 4.2 mg/dL 2.5-4.6 [facility] Platelet mean volume Auto (B ld) [Entitic vol]Ordered By: Chintan Brewster on 11-07-2022 Platelet mean volume (Bld) [Entitic vol] 7.1 fL 6.6-10.1 [facility] Platelets Auto (Bld) [#/Vol] Ordered By: Chintan Brewster on 11-07-2022 Platelets (Bld) [#/Vol] 399 10*3/uL 150-450 [facility] Potassium [Moles/volume] in Serum or PlasmaOrdered By: Yocasta Villalba on 11-07-2022 Potassium [Moles/Vol] 4.4 mmol/L 3.5-5.1 [facility] Comment on above: *Additional results available. Contact laboratory/see report*Delta: 6.0 on 11/07/22 RBC Auto (Bld) [#/Vol]Ordere d By: Chintan Brewster on 11-07-2022 RBC (Bld) [#/Vol] 2.97 10*6/uL 3.90-5.[address] [facility] Serum or plasma anion gap de terminationOrdered By: Yocasta Villalba on 11-07-2022 Anion gap [Moles/Vol] 14.2 mmol/L 6.0-15.0 [facility] Sodium [Moles/volume] in Ser um or PlasmaOrdered By: Yocasta Villalba on 11-07-2022 Sodium [Moles/Vol] 135 mmol/L 136-146 [facility] Urea nitrogen [Mass/volume] in Serum or PlasmaOrdered By: Yocasta Villalba on 11-07-2022 Urea nitrogen [Mass/Vol] 73 mg/dL 9-23 [facility] WBC Auto (Bld) [#/Vol]Ordere d By: Chintan Brewster on 11-07-2022 WBC (Bld) [#/Vol] 12.4 10*3/uL 4.1-10.[address] [facility] CT biopsyOrdered By: Yocasta rockwell on 11-06-2022 Transferrin [Mass/Vol] 225 mg/dL 180-380 [facility] Ferritin [Mass/volume] in Se rum or PlasmaOrdered By: Yocasta Villalba on 11-06-2022 Ferritin [Mass/Vol] 363.1 ng/mL 23.9-336.2 [facility] Folate [Mass/volume] in Seru m or PlasmaOrdered By: Yocasta Villalba on 11-06-2022 Folate [Mass/Vol] 11.5 ng/mL >5.9 [facility] Comment on above: Folate reference ran ge: >5.9 ng/mlThe WHO technical consultation on folate and vitamin [id number] has determined that folate concentrations lessthan 4 ng/ml are considered deficient. Iron [Mass/volume] in Serum or PlasmaOrdered By: Yocasta Villalba on 11-06-2022 Iron [Mass/Vol] 38 ug/dL 40-160 [facility] Iron binding capacity [Mass/ volume] in Serum or PlasmaOrdered By: Yocasta Villalba on 11-06-2022 Iron binding capacity [Mass/Vol] 315 ug/dL 255-450 [facility] Iron saturation [Mass Fracti on] in Serum or PlasmaOrdered By: Yocasta Villalba on 11-06-2022 Iron saturation [Mass fraction] 12.1 % 20-50 [facility] COVID CepheidOrdered By: Joyce Brewster on 11-05-2022 SARS-CoV-2 (COVID-19) Ab IA Ql Negative Negative [facility] Comment on above: This is a duplicate [employer] Xpert Xpress CoV-2/Flu/RSV Plus RNA by RT-PCR result to be used for statistical tracking purpose only. SARS-CoV-2 (COVID-19) RNA SHAY+probe Ql (Unsp spec) [facility] SARS-CoV-2 (COVID-19) RNA SHAY+probe Ql (Unsp spec) [facility] Activated partial thrombopla stin time (aPTT) in platelet poor plasma by coagulation aOrdered By: Millie Burgos on 11-04-2022 aPTT Coag (PPP) [Time] 35.0 s 25.1-36.5 [facility] Albumin [Mass/volume] in Bod y fluidOrdered By: Delano Mondragon on 11-04-2022 Albumin (Body fld) [Mass/Vol] 3.3 g/dL 3.2-5.5 [facility] Alkaline phosphatase [Enzyma tic activity/volume] in Serum or PlasmaOrdered By: Delano Mondragon on 11-04-2022 ALP [Catalytic activity/Vol] 59 U/L 32-92 [facility] Aspartate aminotransferase [ Enzymatic activity/volume] in Serum or PlasmaOrdered By: Delano Mondragon on 11-04-2022 AST [Catalytic activity/Vol] 14 U/L 10-42 [facility] Automated erythrocytes count in urine sediment (number/area)Ordered By: Millie Burgos on 11-04-2022 RBC Auto (Urine sed) [#/Area] 3-4 [HPF] 0-4 [facility] Automated leukocytes count i n urine sediment (number/area)Ordered By: Millie Burgos on 11-04-2022 WBC Auto (Urine sed) [#/Area] 1-2 [HPF] 0-4 [facility] Basophils Auto (Bld) [#/Vol] Ordered By: Delano Mondragon on 11-04-2022 Basophils (Bld) [#/Vol] 0.1 10*3/uL 0.0-0.2 [facility] Basophils/100 WBC Auto (Bld) Ordered By: Delano Mondragon on 11-04-2022 Basophils/100 WBC (Bld) 1.1 % . [facility] Bilirubin Test strip Ql (U)O rdered By: Millie Burgos on 11-04-2022 Bilirubin Ql (U) Negative Negative [facility] Bilirubin.total [Mass/volume ] in Serum or PlasmaOrdered By: Delano Mondragon on 11-04-2022 Bilirubin [Mass/Vol] 0.3 mg/dL 0.3-1.2 [facility] Calcium [Mass/volume] in Ser um or PlasmaOrdered By: Delano Mondragon on 11-04-2022 Calcium [Mass/Vol] 8.9 mg/dL 8.2-10.2 [facility] Carbon dioxide, total [Moles /volume] in Serum or PlasmaOrdered By: Delano Mondragon on 11-04-2022 CO2 [Moles/Vol] 17.3 mmol/L 22.0-30.0 [facility] Chloride [Moles/volume] in S james or PlasmaOrdered By: Delano Mondragon on 11-04-2022 Chloride [Moles/Vol] 112 mmol/L 95-114 [facility] Color Auto (U)Ordered By: Jose M Burgos on 11-04-2022 Color (U) Yellow Yellow [facility] Creatinine and Glomerular fi ltration rate.predicted panel (S/P/Bld)Ordered By: Delano Mondragon on 11-04-2022 Creatinine [Mass/Vol] 5.77 mg/dL 0.64-1.27 [facility] Eosinophils Auto (Bld) [#/Vo l]Ordered By: Delano Mondragon on 11-04-2022 Eosinophils (Bld) [#/Vol] 0.3 10*3/uL 0.0-0.45 [facility] Eosinophils/100 WBC Auto (Bl d)Ordered By: Delano Mondragon on 11-04-2022 Eosinophils/100 WBC (Bld) 2.7 % . [facility] Erythrocyte distribution wid th Auto (RBC) [Ratio]Ordered By: Delano Mondragon on 11-04-2022 Erythrocyte distribution width (RBC) [Ratio] 14.5 % 12.0-14.8 [facility] Estimated glomerular filtrat ion rate (GFR) non- AmericanOrdered By: Delano Mondragon on 11-04-2022 GFR/1.73 sq M.predicted among non-blacks MDRD (S/P/Bld) [Vol rate/Area] 10 mL/Min [facility] Globulin Calc (S) [Mass/Vol] Ordered By: Delano Mondragon on 11-04-2022 Globulin (S) [Mass/Vol] 4.2 g/dL [facility] Glucose [Mass/volume] in Ser um or PlasmaOrdered By: Delano Mondragon on 11-04-2022 Glucose [Mass/Vol] 82 mg/dL 70-100 [facility] Comment on above: ADA recommended refe rence rangeRandom Glucose Reference Range is dependent on time and content of last meal. Glucose of more than 200 mg/dL in a nonstressed, ambulatory subject supports the diagnosis of Diabetes Mellitus. Hematocrit Auto (Bld) [Volum e fraction]Ordered By: Delano Mondragon on 11-04-2022 Hematocrit (Bld) [Volume fraction] 30.2 % 38.8-50.0 [facility] Hemoglobin [Mass/volume] in BloodOrdered By: Delano Mondragon on 11-04-2022 Hemoglobin (Bld) [Mass/Vol] 9.8 g/dL 13.0-17.0 [facility] Ketones Auto test strip (U) [Mass/Vol]Ordered By: Millie Burgos on 11-04-2022 Ketones (U) [Mass/Vol] Negative Negative Fi [facility] Laboratory - Chemistry and C hemistry - challengeOrdered By: Millie Burgos on 11-04-2022 Magnesium [Mass/Vol] 1.6 mg/dL 1.6-2.6 [facility] Natriuretic peptide B (Bld) [Mass/Vol] 27.0 pg/mL 5-100 [facility] Laboratory - CoagulationOrde red By: Millie Burgos on 11-04-2022 PT Coag (PPP) [Time] 12.4 s 9.0-12.9 [facility] Laboratory - UrinalysisOrder ed By: Millie Burgos on 11-04-2022 Hyaline casts LM Ql (Urine sed) 0-8 [LPF] 0-8 [facility] Leukocytes [#/volume] correc scott for nucleated erythrocytes in Blood by Automated counOrdered By: Delano Mondragon on 11-04-2022 WBC corrected for nucl RBC Auto (Bld) [#/Vol] 12.2 10*3/uL 4.1-10.5 [facility] Lymphocytes Auto (Bld) [#/Vo l]Ordered By: Delano Mondragon on 11-04-2022 Lymphocytes (Bld) [#/Vol] 1.5 10*3/uL 1.00-4.8 [facility] Lymphocytes/100 WBC Auto (Bl d)Ordered By: Delano Mondragon on 11-04-2022 Lymphocytes/100 WBC (Bld) 12.4 % . [facility] MCH Auto (RBC) [Entitic mass ]Ordered By: Delano Mondragon on 11-04-2022 MCH (RBC) [Entitic mass] 29.6 pg 27.5-35.2 [facility] MCHC Auto (RBC) [Mass/Vol]Or dered By: Delano Mondragon on 11-04-2022 MCHC (RBC) [Mass/Vol] 32.6 g/dL 32.5-35.6 [facility] MCV Auto (RBC) [Entitic vol] Ordered By: Delano Mondragon on 11-04-2022 MCV (RBC) [Entitic vol] 90.9 fL 83.5-101 [facility] Monocyte distribution width [Entitic volume] in Blood by AutomatedOrdered By: Delano Mondragon on 11-04-2022 Monocyte distribution width Auto (Bld) [Entitic vol] 17.32 % 0.00-20.00 [facility] Monocytes Auto (Bld) [#/Vol] Ordered By: Delano Mondragon on 11-04-2022 Monocytes (Bld) [#/Vol] 1.1 10*3/uL 0.0-0.8 [facility] Monocytes/100 WBC Auto (Bld) Ordered By: Delano Mondragon on 11-04-2022 Monocytes/100 WBC (Bld) 9.0 % . [facility] Neutrophils Auto (Bld) [#/Vo l]Ordered By: Delano Mondragon on 11-04-2022 Neutrophils (Bld) [#/Vol] 9.1 10*3/uL 1.8-7.7 [facility] Neutrophils/100 WBC Auto (Bl d)Ordered By: Delano Mondragon on 11-04-2022 Neutrophils/100 WBC (Bld) 74.8 % . [facility] Nitrite Test strip Ql (U)Ord ered By: Millie Burgos on 11-04-2022 Nitrite Ql (U) Negative Negative [facility] No Panel InformationOrdered By: Delano Mondragon on 11-04-2022 Estimated GFR () 13 mL/Min [facility] Comment on above: GFR estimated refere nce range: According to KDOQI guidelines, <60 ml/min/1.73m2 is sufficient to diagnose a patient with chronic kidney disease. Pharmacy Creatinine Clearance (Chem 22.99 [facility] Nucleated erythrocytes [Pres ence] in Blood by Automated countOrdered By: Delano Mondragon on 11-04-2022 Nucleated RBC Auto Ql (Bld) 0.0 /100{WBC} 0-0.5 [facility] Phosphate [Mass/volume] in S james or PlasmaOrdered By: Millie Burgos on 11-04-2022 Phosphate [Mass/Vol] 3.8 mg/dL 2.5-4.6 [facility] Platelet mean volume Auto (B ld) [Entitic vol]Ordered By: Delano Mondragon on 11-04-2022 Platelet mean volume (Bld) [Entitic vol] 6.7 fL 6.6-10.1 [facility] Platelet poor plasma interna tional normalized ratio (INR) by coagulation assay (relatOrdered By: Millie Burgos on 11-04-2022 INR Coag (PPP) [Relative time] 1.1 {INR} [facility] Comment on above: INR Therapeutic Rang e [...] 11-04-2022 Platelets (Bld) [#/Vol] 418 10*3/uL 150-450 [facility] Potassium [Moles/volume] in Serum or PlasmaOrdered By: Delano Mondragon on 11-04-2022 Potassium [Moles/Vol] 5.3 mmol/L 3.5-5.1 [facility] Protein Auto test strip (U) [Mass/Vol]Ordered By: Millie Burgos on 11-04-2022 Protein (U) [Mass/Vol] 300 mg/dL Negative [facility] Protein [Mass/volume] in Ser um or PlasmaOrdered By: Delano Mondragon on 11-04-2022 Protein [Mass/Vol] 7.5 g/dL 6.1-7.9 [facility] RBC Auto (Bld) [#/Vol]Ordere d By: Delano Mondragon on 11-04-2022 RBC (Bld) [#/Vol] 3.32 10*6/uL 3.90-5.[address] [facility] Serum or plasma alanine lawson otransferase measurement without P-5'-P (enzymatic activiOrdered By: Delano Mondragon on 11-04-2022 ALT No additional P-5'-P [Catalytic activity/Vol] 23 U/L 10-60 [facility] Serum or plasma albumin/glob ulin mass ratioOrdered By: Delano Mondragon on 11-04-2022 Albumin/Globulin [Mass ratio] 0.8 {ratio} [facility] Serum or plasma anion gap de terminationOrdered By: Delano Mondragon on 11-04-2022 Anion gap [Moles/Vol] 14.0 mmol/L 6.0-15.0 [facility] Sodium [Moles/volume] in Ser um or PlasmaOrdered By: Delano Mondragon on 11-04-2022 Sodium [Moles/Vol] 138 mmol/L 136-146 [facility] Specific gravity Auto test s trip (U) [Rel density]Ordered By: Millie Burgos on 11-04-2022 Specific gravity (U) [Rel density] 1.013 1.001-1.030 [facility] Squamous epithelial cells de tection in urine sediment by light microscopyOrdered By: Millie Burgos on 11-04-2022 Epithelial cells.squamous LM Ql (Urine sed) 0-1 [HPF] 0-2 [facility] Troponin I.cardiac [Mass/vol ume] in Serum or Plasma by High sensitivity methodOrdered By: Millie Burgos on 11-04-2022 Troponin I.cardiac High sensitivity method [Mass/Vol] 10 pg/mL 0-20 [facility] Urea nitrogen [Mass/volume] in Serum or PlasmaOrdered By: Delano Mondragon on 11-04-2022 Urea nitrogen [Mass/Vol] 52 mg/dL 9-23 [facility] Urine bacteria detection by automated methodOrdered By: Millie Burgos on 11-04-2022 Bacteria Auto Ql (U) None seen None Seen [facility] Urine clarity by refractomet ry automatedOrdered By: Millie Bugros on 11-04-2022 Clarity Refractometry automated (U) Clear Clear [facility] Urine glucose measurement by automated test strip (mass/volume)Ordered By: Millie Burgos on 11-04-2022 Glucose Auto test strip (U) [Mass/Vol] 100 mg/dL Normal [facility] Urine hemoglobin detection b y automated test stripOrdered By: Millie Burgos on 11-04-2022 Hemoglobin Auto test strip Ql (U) 1+ Negative [facility] Urine leukocyte esterase det ection by automated test stripOrdered By: Millie Burgos on 11-04-2022 Leukocyte esterase Auto test strip Ql (U) Negative Negative [facility] Urobilinogen Auto test strip (U) [Mass/Vol]Ordered By: Millie Burgos on 11-04-2022 Urobilinogen (U) [Mass/Vol] Normal mg/dL Normal [facility] WBC Auto (Bld) [#/Vol]Ordere d By: Delano Mondragon on 11-04-2022 WBC (Bld) [#/Vol] 12.2 10*3/uL 4.1-10.[address] [facility] pH Auto test strip (U)Ordere d By: Millie Burgos on 11-04-2022 pH (U) 5.5 [pH] 5.0-9.0 [facility] Albumin [Mass/volume] in Ser um or PlasmaOrdered By: Ada Uriostegui on 11-02-2022 Albumin [Mass/Vol] 3.3 g/dL 3.2-5.5 [facility] Automated erythrocytes count in urine sediment (number/area)Ordered By: Ada Uriostegui on 11-02-2022 RBC Auto (Urine sed) [#/Area] 1-2 [HPF] 0-4 [facility] Automated leukocytes count i n urine sediment (number/area)Ordered By: Ada Uriostegui on 11-02-2022 WBC Auto (Urine sed) [#/Area] 0-1 [HPF] 0-4 [facility] Bilirubin Test strip Ql (U)O rdered By: Ada Uriostegui on 11-02-2022 Bilirubin Ql (U) Negative Negative [facility] CT biopsyOrdered By: Jonathan christensen on 11-02-2022 Transferrin [Mass/Vol] 270 mg/dL 180-380 [facility] Calcium [Mass/volume] in Ser um or PlasmaOrdered By: Ada Moody on 11-02-2022 Calcium [Mass/Vol] 8.3 mg/dL 8.2-10.2 [facility] Carbon dioxide, total [Moles /volume] in Serum or PlasmaOrdered By: Ada Whelanr on 11-02-2022 CO2 [Moles/Vol] 18.0 mmol/L 22.0-30.0 [facility] Chloride [Moles/volume] in S james or PlasmaOrdered By: Ada Uriostegui on 11-02-2022 Chloride [Moles/Vol] 112 mmol/L 95-114 [facility] Color Auto (U)Ordered By: Ab akhil Uriostegui on 11-02-2022 Color (U) Yellow Yellow [facility] Creatinine and Glomerular fi ltration rate.predicted panel (S/P/Bld)Ordered By: Ada Uriostegui on 11-02-2022 Creatinine [Mass/Vol] 5.16 mg/dL 0.64-1.27 [facility] Comment on above: Delta: 5.79 on 11/01 Erythrocyte distribution wid th Auto (RBC) [Ratio]Ordered By: Ada Uriostegui on 11-02-2022 Erythrocyte distribution width (RBC) [Ratio] 14.4 % 12.0-14.8 [facility] Estimated glomerular filtrat ion rate (GFR) non- AmericanOrdered By: Ada Uriostegui on 11-02-2022 GFR/1.73 sq M.predicted among non-blacks MDRD (S/P/Bld) [Vol rate/Area] 12 mL/Min [facility] Ferritin [Mass/volume] in Se rum or PlasmaOrdered By: Ada Uriostegui on 11-02-2022 Ferritin [Mass/Vol] 434.0 ng/mL 23.9-336.2 [facility] Glucose [Mass/volume] in Ser um or PlasmaOrdered By: Ada Uriostegui on 11-02-2022 Glucose [Mass/Vol] 165 mg/dL 70-100 [facility] Comment on above: ADA recommended refe rence rangeRandom Glucose Reference Range is dependent on time and content of last meal. Glucose of more than 200 mg/dL in a nonstressed, ambulatory subject supports the diagnosis of Diabetes Mellitus. Hematocrit Auto (Bld) [Volum e fraction]Ordered By: Ada Uriostegui on 11-02-2022 Hematocrit (Bld) [Volume fraction] 30.1 % 38.8-50.0 [facility] Hemoglobin [Mass/volume] in BloodOrdered By: Ada Uriostegui on 11-02-2022 Hemoglobin (Bld) [Mass/Vol] 9.8 g/dL 13.0-17.0 [facility] Iron [Mass/volume] in Serum or PlasmaOrdered By: Ada Uriostegui on 11-02-2022 Iron [Mass/Vol] 41 ug/dL 40-160 [facility] Iron binding capacity [Mass/ volume] in Serum or PlasmaOrdered By: Ada Uriostegui on 11-02-2022 Iron binding capacity [Mass/Vol] 378 ug/dL 255-450 [facility] Iron saturation [Mass Fracti on] in Serum or PlasmaOrdered By: Ada Uriostegui on 11-02-2022 Iron saturation [Mass fraction] 10.8 % 20-50 [facility] Ketones Auto test strip (U) [Mass/Vol]Ordered By: Ada Uriostegui on 11-02-2022 Ketones (U) [Mass/Vol] Negative Negative Fi [facility] Laboratory - Chemistry and C hemistry - challengeOrdered By: Ada Uriostegui on 11-02-2022 Magnesium [Mass/Vol] 1.7 mg/dL 1.6-2.6 [facility] Laboratory - UrinalysisOrder ed By: Ada Uriostegui on 11-02-2022 Hyaline casts LM Ql (Urine sed) None seen [LPF] 0-8 [facility] Leukocytes [#/volume] correc scott for nucleated erythrocytes in Blood by Automated counOrdered By: Ada Uriostegui on 11-02-2022 WBC corrected for nucl RBC Auto (Bld) [#/Vol] 10.9 10*3/uL 4.1-10.5 [facility] MCH Auto (RBC) [Entitic mass ]Ordered By: Ada Uriostegui on 11-02-2022 MCH (RBC) [Entitic mass] 29.8 pg 27.5-35.2 [facility] MCHC Auto (RBC) [Mass/Vol]Or dered By: Ada Uriostegui on 11-02-2022 MCHC (RBC) [Mass/Vol] 32.5 g/dL 32.5-35.6 [facility] MCV Auto (RBC) [Entitic vol] Ordered By: Ada Uriostegui on 11-02-2022 MCV (RBC) [Entitic vol] 91.5 fL 83.5-101 [facility] Nitrite Test strip Ql (U)Ord ered By: Ada Uriostegui on 11-02-2022 Nitrite Ql (U) Negative Negative [facility] No Panel InformationOrdered By: Ada Uriostegui on 11-02-2022 25-Hydroxy Vitamin D Total 12.4 ng/mL 30-100 [facility] Comment on above: VITAMIN D STATUS 25( [place])VITAMIN D RANGE (ng/mL) Deficient <20 Insufficient 20 to <30Sufficient 30 to 100Reference: Sophy MF,Glendy NC, Nitin RAMOS, et al. Evaluation,treatment, and prevention of vitamin D deficiency; an Endocrine Society clinical practice guideline. JCEM. 2010; 96(7):1911-30. Estimated GFR () 14 mL/Min [facility] Comment on above: GFR estimated refere nce range: According to KDOQI guidelines, <60 ml/min/1.73m2 is sufficient to diagnose a patient with chronic kidney disease. Pharmacy Creatinine Clearance (Chem N/A [facility] Parathyrin.intact [Mass/volu me] in Serum or PlasmaOrdered By: Ada Uriostegui on 11-02-2022 Parathyrin.intact [Mass/Vol] 204.7 pg/mL 12-88 [facility] Phosphate [Mass/volume] in S james or PlasmaOrdered By: Ada Uriostegui on 11-02-2022 Phosphate [Mass/Vol] 3.9 mg/dL 2.5-4.6 [facility] Platelet mean volume Auto (B ld) [Entitic vol]Ordered By: Ada Uriostegui on 11-02-2022 Platelet mean volume (Bld) [Entitic vol] 7.0 fL 6.6-10.1 [facility] Platelets Auto (Bld) [#/Vol] Ordered By: Ada Uriostegui on 11-02-2022 Platelets (Bld) [#/Vol] 323 10*3/uL 150-450 [facility] Potassium [Moles/volume] in Serum or PlasmaOrdered By: Ada Uriostegui on 11-02-2022 Potassium [Moles/Vol] 5.9 mmol/L 3.5-5.1 [facility] Protein Auto test strip (U) [Mass/Vol]Ordered By: Ada Uriostegui on 11-02-2022 Protein (U) [Mass/Vol] 300 mg/dL Negative [facility] RBC Auto (Bld) [#/Vol]Ordere d By: Ada Uriostegui on 11-02-2022 RBC (Bld) [#/Vol] 3.29 10*6/uL 3.90-5.[address] [facility] Serum or plasma anion gap de terminationOrdered By: Ada Uriostegui on 11-02-2022 Anion gap [Moles/Vol] 12.9 mmol/L 6.0-15.0 [facility] Sodium [Moles/volume] in Ser um or PlasmaOrdered By: Ada Uriostegui on 11-02-2022 Sodium [Moles/Vol] 137 mmol/L 136-146 [facility] Specific gravity Auto test s trip (U) [Rel density]Ordered By: Ada Uriostegui on 11-02-2022 Specific gravity (U) [Rel density] 1.011 1.001-1.030 [facility] Squamous epithelial cells de tection in urine sediment by light microscopyOrdered By: Ada Uriostegui on 11-02-2022 Epithelial cells.squamous LM Ql (Urine sed) None seen [HPF] 0-2 [facility] Urate [Mass/volume] in Serum or PlasmaOrdered By: Ada Uriostegui on 11-02-2022 Urate [Mass/Vol] 5.3 mg/dL 2.6-7.2 [facility] Urea nitrogen [Mass/volume] in Serum or PlasmaOrdered By: Ada Uriostegui on 11-02-2022 Urea nitrogen [Mass/Vol] 58 mg/dL 9-23 [facility] Urine bacteria detection by automated methodOrdered By: Ada Uriostegui on 11-02-2022 Bacteria Auto Ql (U) None seen None Seen [facility] Urine clarity by refractomet ry automatedOrdered By: Ada Uriostegui on 11-02-2022 Clarity Refractometry automated (U) Clear Clear [facility] Urine glucose measurement by automated test strip (mass/volume)Ordered By: Ada Uriostegui on 11-02-2022 Glucose Auto test strip (U) [Mass/Vol] 250 mg/dL Normal [facility] Urine hemoglobin detection b y automated test stripOrdered By: Ada Uriostegui on 11-02-2022 Hemoglobin Auto test strip Ql (U) 1+ Negative [facility] Urine leukocyte esterase det ection by automated test stripOrdered By: Ada Uriostegui on 11-02-2022 Leukocyte esterase Auto test strip Ql (U) Negative Negative [facility] Urobilinogen Auto test strip (U) [Mass/Vol]Ordered By: Ada Uriostegui on 11-02-2022 Urobilinogen (U) [Mass/Vol] Normal mg/dL Normal [facility] pH Auto test strip (U)Ordere d By: Ada Uriostegui on 11-02-2022 pH (U) 5.5 [pH] 5.0-9.0 [facility] Activated partial thrombopla stin time (aPTT) in platelet poor plasma by coagulation aOrdered By: Mary Hill on 11-01-2022 aPTT Coag (PPP) [Time] 34.7 s 25.1-36.5 [facility] Alkaline phosphatase [Enzyma tic activity/volume] in Serum or PlasmaOrdered By: Mary Hill on 11-01-2022 ALP [Catalytic activity/Vol] 48 U/L 32-92 [facility] Aspartate aminotransferase [ Enzymatic activity/volume] in Serum or PlasmaOrdered By: Mary Hill on 11-01-2022 AST [Catalytic activity/Vol] 22 U/L 10-42 [facility] Basophils Auto (Bld) [#/Vol] Ordered By: Mary Hill on 11-01-2022 Basophils (Bld) [#/Vol] 0.1 10*3/uL 0.0-0.2 [facility] Basophils/100 WBC Auto (Bld) Ordered By: Mary Hill on 11-01-2022 Basophils/100 WBC (Bld) 0.5 % . [facility] Bilirubin.total [Mass/volume ] in Serum or PlasmaOrdered By: Mary Hill on 11-01-2022 Bilirubin [Mass/Vol] 0.4 mg/dL 0.3-1.2 [facility] Body fluid albumin measureme nt (mass/volume)Ordered By: Mary Hill on 11-01-2022 Albumin (Body fld) [Mass/Vol] 3.4 g/dL 3.2-5.5 [facility] Calcium [Mass/volume] in Ser um or PlasmaOrdered By: Mary Hill on 11-01-2022 Calcium [Mass/Vol] 8.6 mg/dL 8.2-10.2 [facility] Carbon dioxide, total [Moles /volume] in Serum or PlasmaOrdered By: Mary Hill on 11-01-2022 CO2 [Moles/Vol] 16.4 mmol/L 22.0-30.0 [facility] Chloride [Moles/volume] in S james or PlasmaOrdered By: Mary Hill on 11-01-2022 Chloride [Moles/Vol] 109 mmol/L 95-114 [facility] Creatinine and Glomerular fi ltration rate.predicted panel (S/P/Bld)Ordered By: Mary Hill on 11-01-2022 Creatinine [Mass/Vol] 5.79 mg/dL 0.64-1.27 [facility] Eosinophils Auto (Bld) [#/Vo l]Ordered By: Mary Hill on 11-01-2022 Eosinophils (Bld) [#/Vol] 0.3 10*3/uL 0.0-0.45 [facility] Eosinophils/100 WBC Auto (Bl d)Ordered By: Mary Hill on 11-01-2022 Eosinophils/100 WBC (Bld) 2.8 % . [facility] Erythrocyte distribution wid th Auto (RBC) [Ratio]Ordered By: Mary Hill on 11-01-2022 Erythrocyte distribution width (RBC) [Ratio] 14.9 % 12.0-14.8 [facility] Estimated glomerular filtrat ion rate (GFR) non- AmericanOrdered By: Mary Hill on 11-01-2022 GFR/1.73 sq M.predicted among non-blacks MDRD (S/P/Bld) [Vol rate/Area] 10 mL/Min [facility] Fecal occult blood detection by immunochemistryOrdered By: Mary Hill on 11-01-2022 Hemoglobin.gastrointes tinal Ql (Stl) [facility] Hemoglobin.gastrointes tinal Ql (Stl) [facility] Globulin Calc (S) [Mass/Vol] Ordered By: Mary Hill on 11-01-2022 Globulin (S) [Mass/Vol] 4.0 g/dL [facility] Glucose Glucometer (BldC) [M ass/Vol]Ordered By: Mary Hill on 11-01-2022 Glucose [Mass/Vol] 55 mg/dL [facility] Comment on above: Random Glucose Refer ence Range is dependent on time and content of last meal. Glucose of more than 200 mg/dL in a nonstressed, ambulatory subject supports the diagnosis of Diabetes Mellitus. Glucose [Mass/volume] in Ser um or PlasmaOrdered By: Mary Hill on 11-01-2022 Glucose [Mass/Vol] 80 mg/dL 70-100 [facility] Comment on above: ADA recommended refe rence rangeRandom Glucose Reference Range is dependent on time and content of last meal. Glucose of more than 200 mg/dL in a nonstressed, ambulatory subject supports the diagnosis of Diabetes Mellitus. Hematocrit Auto (Bld) [Volum e fraction]Ordered By: Mary Hill on 11-01-2022 Hematocrit (Bld) [Volume fraction] 29.9 % 38.8-50.0 [facility] Hemoglobin [Mass/volume] in BloodOrdered By: Mary Hill on 11-01-2022 Hemoglobin (Bld) [Mass/Vol] 9.8 g/dL 13.0-17.0 [facility] Laboratory - Chemistry and C hemistry - challengeOrdered By: Mary Hill on 11-01-2022 Natriuretic peptide B (Bld) [Mass/Vol] 32.0 pg/mL 5-100 [facility] Laboratory - CoagulationOrde red By: Mary Hill on 11-01-2022 PT Coag (PPP) [Time] 12.3 s 9.0-12.9 [facility] Leukocytes [#/volume] correc scott for nucleated erythrocytes in Blood by Automated counOrdered By: Mary Hill on 11-01-2022 WBC corrected for nucl RBC Auto (Bld) [#/Vol] 12.0 10*3/uL 4.1-10.5 [facility] Lymphocytes Auto (Bld) [#/Vo l]Ordered By: Mary Hill on 11-01-2022 Lymphocytes (Bld) [#/Vol] 1.7 10*3/uL 1.00-4.8 [facility] Lymphocytes/100 WBC Auto (Bl d)Ordered By: Mary Hill on 11-01-2022 Lymphocytes/100 WBC (Bld) 14.6 % . [facility] MCH Auto (RBC) [Entitic mass ]Ordered By: Mary Hill on 11-01-2022 MCH (RBC) [Entitic mass] 29.6 pg 27.5-35.2 [facility] MCHC Auto (RBC) [Mass/Vol]Or dered By: Mary Hill on 11-01-2022 MCHC (RBC) [Mass/Vol] 32.7 g/dL 32.5-35.6 [facility] MCV Auto (RBC) [Entitic vol] Ordered By: Mary Hill on 11-01-2022 MCV (RBC) [Entitic vol] 90.6 fL 83.5-101 [facility] Monocyte %Ordered By: Jacki Hill on 11-01-2022 Monocyte % 23 umol/L 11-35 [facility] Monocyte distribution width [Entitic volume] in Blood by AutomatedOrdered By: Mary Hill on 11-01-2022 Monocyte distribution width Auto (Bld) [Entitic vol] 14.78 % 0.00-20.00 [facility] Monocytes Auto (Bld) [#/Vol] Ordered By: Mary Hill on 11-01-2022 Monocytes (Bld) [#/Vol] 1.1 10*3/uL 0.0-0.8 [facility] Monocytes/100 WBC Auto (Bld) Ordered By: Mary Hill on 11-01-2022 Monocytes/100 WBC (Bld) 9.6 % . [facility] Neutrophils Auto (Bld) [#/Vo l]Ordered By: Mary Hill on 11-01-2022 Neutrophils (Bld) [#/Vol] 8.7 10*3/uL 1.8-7.7 [facility] Neutrophils/100 WBC Auto (Bl d)Ordered By: Mary Hill on 11-01-2022 Neutrophils/100 WBC (Bld) 72.5 % . [facility] No Panel InformationOrdered By: Mary Hill on 11-01-2022 Bedside Glucose Comment See comment [facility] Comment on above: Glu2: WILL NOTIFY DR /RN Estimated GFR () 13 mL/Min [facility] Comment on above: GFR estimated refere nce range: According to KDOQI guidelines, <60 ml/min/1.73m2 is sufficient to diagnose a patient with chronic kidney disease. Pharmacy Creatinine Clearance (Chem 23.31 [facility] Nucleated erythrocytes [Pres ence] in Blood by Automated countOrdered By: Mary Hill on 11-01-2022 Nucleated RBC Auto Ql (Bld) 0.1 /100{WBC} 0-0.5 [facility] Platelet mean volume Auto (B ld) [Entitic vol]Ordered By: Mary Hill on 11-01-2022 Platelet mean volume (Bld) [Entitic vol] 7.0 fL 6.6-10.1 [facility] Platelet poor plasma interna tional normalized ratio (INR) by coagulation assay (relatOrdered By: Mary Hill on 11-01-2022 INR Coag (PPP) [Relative time] 1.1 {INR} [facility] Comment on above: INR Therapeutic Rang e [...] 11-01-2022 Platelets (Bld) [#/Vol] 347 10*3/uL 150-450 [facility] Potassium [Moles/volume] in Serum or PlasmaOrdered By: Mary Hill on 11-01-2022 Potassium [Moles/Vol] 4.9 mmol/L 3.5-5.1 [facility] Protein [Mass/volume] in Ser um or PlasmaOrdered By: Mary Hill on 11-01-2022 Protein [Mass/Vol] 7.4 g/dL 6.1-7.9 [facility] RBC Auto (Bld) [#/Vol]Ordere d By: Mary Hill on 11-01-2022 RBC (Bld) [#/Vol] 3.30 10*6/uL 3.90-5.[address] [facility] Serum or plasma alanine lawson otransferase measurement without P-5'-P (enzymatic activiOrdered By: Mary Hill on 11-01-2022 ALT No additional P-5'-P [Catalytic activity/Vol] 28 U/L 10-60 [facility] Serum or plasma albumin/glob ulin mass ratioOrdered By: Mary Hill on 11-01-2022 Albumin/Globulin [Mass ratio] 0.9 {ratio} [facility] Serum or plasma anion gap de terminationOrdered By: Mary Hill on 11-01-2022 Anion gap [Moles/Vol] 17.5 mmol/L 6.0-15.0 [facility] Sodium [Moles/volume] in Ser um or PlasmaOrdered By: Mary Hill on 11-01-2022 Sodium [Moles/Vol] 138 mmol/L 136-146 [facility] Troponin I.cardiac [Mass/vol ume] in Serum or Plasma by High sensitivity methodOrdered By: Mary Hill on 11-01-2022 Troponin I.cardiac High sensitivity method [Mass/Vol] 7 pg/mL 0-20 [facility] Urea nitrogen [Mass/volume] in Serum or PlasmaOrdered By: Mary Hill on 11-01-2022 Urea nitrogen [Mass/Vol] 59 mg/dL 05-29 [facility] WBC Auto (Bld) [#/Vol]Ordere d By: Mary Hill on 11-01-2022 WBC (Bld) [#/Vol] 12.0 10*3/uL 4.1-10.[address] [facility] VL Extremity Venous Duplex L elizabether Slimon 10-09-2022 VL Extremity Venous Duplex Lower Slim [...] called to Shirley at Dr. Francois 12:35pm. [employer]: Rea Tristan, SARAH Radiologist Report Bilateral lower [...] for deep vein thrombosis. Final Signed by: Samir PALOMARES, Tasia Hoffman Signed (Electronic Signature): 10.09.2022 2:10 pm Transcribed by: Rea Tristan Transcribed DT/TM: 10.09.2022 12:39 (If Report is Signed, Electronically Signed in Other Vendor System) Normal [facility] Albumin [Mass/volume] in Ser um or PlasmaOrdered By: Yolie Noe on 09-23-2022 Albumin [Mass/Vol] 3.3 g/dL 3.2-5.5 [facility] Basophils Auto (Bld) [#/Vol] Ordered By: Yolie Noe on 09-23-2022 Basophils (Bld) [#/Vol] 0.1 10*3/uL 0.0-0.2 [facility] Basophils/100 WBC Auto (Bld) Ordered By: Yolie Noe on 09-23-2022 Basophils/100 WBC (Bld) 0.8 % . [facility] Creatinine and Glomerular fi ltration rate.predicted panel (S/P/Bld)Ordered By: Yolie Noe on 09-23-2022 Creatinine [Mass/Vol] 5.82 mg/dL 0.64-1.27 [facility] Eosinophils Auto (Bld) [#/Vo l]Ordered By: Yolie Noe on 09-23-2022 Eosinophils (Bld) [#/Vol] 0.3 10*3/uL 0.0-0.45 [facility] Eosinophils/100 WBC Auto (Bl d)Ordered By: Yolie Noe on 09-23-2022 Eosinophils/100 WBC (Bld) 2.6 % . [facility] Erythrocyte distribution wid th Auto (RBC) [Ratio]Ordered By: Yolie Noe on 09-23-2022 Erythrocyte distribution width (RBC) [Ratio] 14.0 % 12.0-14.8 [facility] Estimated glomerular filtrat ion rate (GFR) non- AmericanOrdered By: Yolie Noe on 09-23-2022 GFR/1.73 sq M.predicted among non-blacks MDRD (S/P/Bld) [Vol rate/Area] 10 mL/Min [facility] Globulin Calc (S) [Mass/Vol] Ordered By: Yolie Noe on 09-23-2022 Globulin (S) [Mass/Vol] 3.6 g/dL [facility] Glucose Glucometer (BldC) [M ass/Vol]Ordered By: SVITLANA VILLANUEVA on 09-23-2022 Glucose [Mass/Vol] 151 mg/dL [facility] Comment on above: Random Glucose Refer ence Range is dependent on time and content of last meal. Glucose of more than 200 mg/dL in a nonstressed, ambulatory subject supports the diagnosis of Diabetes Mellitus. Hematocrit Auto (Bld) [Volum e fraction]Ordered By: Yolie Noe on 09-23-2022 Hematocrit (Bld) [Volume fraction] 33.0 % 38.8-50.0 [facility] Hemoglobin [Mass/volume] in BloodOrdered By: Yolie Noe on 09-23-2022 Hemoglobin (Bld) [Mass/Vol] 11.1 g/dL 13.0-17.0 [facility] Leukocytes [#/volume] correc scott for nucleated erythrocytes in Blood by Automated counOrdered By: Yolie Noe on 09-23-2022 WBC corrected for nucl RBC Auto (Bld) [#/Vol] 9.9 10*3/uL 4.1-10.5 [facility] Lymphocytes Auto (Bld) [#/Vo l]Ordered By: Yolie Noe on 09-23-2022 Lymphocytes (Bld) [#/Vol] 2.7 10*3/uL 1.00-4.8 [facility] Lymphocytes/100 WBC Auto (Bl d)Ordered By: Yolie Noe on 09-23-2022 Lymphocytes/100 WBC (Bld) 27.6 % . [facility] MCH Auto (RBC) [Entitic mass ]Ordered By: Yolie Noe on 09-23-2022 MCH (RBC) [Entitic mass] 29.5 pg 27.5-35.2 [facility] MCHC Auto (RBC) [Mass/Vol]Or dered By: Yolie Noe on 09-23-2022 MCHC (RBC) [Mass/Vol] 33.5 g/dL 32.5-35.6 [facility] MCV Auto (RBC) [Entitic vol] Ordered By: Yolie Noe on 09-23-2022 MCV (RBC) [Entitic vol] 88.2 fL 83.5-101 [facility] Monocyte distribution width [Entitic volume] in Blood by AutomatedOrdered By: Yolie Noe on 09-23-2022 Monocyte distribution width Auto (Bld) [Entitic vol] 16.48 % 0.00-20.00 [facility] Monocytes Auto (Bld) [#/Vol] Ordered By: Yolie Noe on 09-23-2022 Monocytes (Bld) [#/Vol] 0.9 10*3/uL 0.0-0.8 [facility] Monocytes/100 WBC Auto (Bld) Ordered By: Yolie Noe on 09-23-2022 Monocytes/100 WBC (Bld) 8.8 % . [facility] Neutrophils Auto (Bld) [#/Vo l]Ordered By: Yolie Noe on 09-23-2022 Neutrophils (Bld) [#/Vol] 5.9 10*3/uL 1.8-7.7 [facility] Neutrophils/100 WBC Auto (Bl d)Ordered By: Yolie Noe on 09-23-2022 Neutrophils/100 WBC (Bld) 60.2 % . [facility] No Panel InformationOrdered By: Yolie Noe on 09-23-2022 Estimated GFR () 12 mL/Min [facility] Comment on above: GFR estimated refere nce range: According to KDOQI guidelines, <60 ml/min/1.73m2 is sufficient to diagnose a patient with chronic kidney disease. Pharmacy Creatinine Clearance (Chem 22.77 [facility] Nucleated erythrocytes [Pres ence] in Blood by Automated countOrdered By: Yolie Noe on 09-23-2022 Nucleated RBC Auto Ql (Bld) 0.1 /100{WBC} 0-0.5 [facility] Platelet mean volume Auto (B ld) [Entitic vol]Ordered By: Yolie Noe on 09-23-2022 Platelet mean volume (Bld) [Entitic vol] 7.0 fL 6.6-10.1 [facility] Platelets Auto (Bld) [#/Vol] Ordered By: Yolie Noe on 09-23-2022 Platelets (Bld) [#/Vol] 420 10*3/uL 150-450 [facility] Protein [Mass/volume] in Ser um or PlasmaOrdered By: Yolie Noe on 09-23-2022 Protein [Mass/Vol] 6.9 g/dL 6.1-7.9 [facility] RBC Auto (Bld) [#/Vol]Ordere d By: Yolie Noe on 09-23-2022 RBC (Bld) [#/Vol] 3.74 10*6/uL 3.90-5.[address] [facility] Serum or plasma alanine lawson otransferase measurement without P-5'-P (enzymatic activiOrdered By: Yolie Noe on 09-23-2022 ALT No additional P-5'-P [Catalytic activity/Vol] 19 U/L 10-60 [facility] Serum or plasma albumin/glob ulin mass ratioOrdered By: Yolie Noe on 09-23-2022 Albumin/Globulin [Mass ratio] 0.9 {ratio} [facility] Serum or plasma alkaline elliot sphatase measurement (enzymatic activity/volume)Ordered By: Yolie Noe on 09-23-2022 ALP [Catalytic activity/Vol] 61 U/L 32-92 [facility] Serum or plasma anion gap de terminationOrdered By: Yolie Noe on 09-23-2022 Anion gap [Moles/Vol] 14.3 mmol/L 6.0-15.0 [facility] Serum or plasma aspartate am inotransferase measurement (enzymatic activity/volume)Ordered By: Yolie Noe on 09-23-2022 AST [Catalytic activity/Vol] 15 U/L 10-42 [facility] Serum or plasma calcium shante urement (mass/volume)Ordered By: Yolie Noe on 09-23-2022 Calcium [Mass/Vol] 8.6 mg/dL 8.2-10.2 [facility] Serum or plasma chloride alber surement (moles/volume)Ordered By: Yolie Noe on 09-23-2022 Chloride [Moles/Vol] 107 mmol/L 95-114 [facility] Serum or plasma glucose shante urement (mass/volume)Ordered By: Yolie Noe on 09-23-2022 Glucose [Mass/Vol] 150 mg/dL 70-100 [facility] Comment on above: ADA recommended refe rence rangeRandom Glucose Reference Range is dependent on time and content of last meal. Glucose of more than 200 mg/dL in a nonstressed, ambulatory subject supports the diagnosis of Diabetes Mellitus. Serum or plasma potassium me asurement (moles/volume)Ordered By: Yolie Newmangosia on 09-23-2022 Potassium [Moles/Vol] 4.0 mmol/L 3.5-5.1 [facility] Serum or plasma sodium measu rement (moles/volume)Ordered By: Yolie Noe on 09-23-2022 Sodium [Moles/Vol] 139 mmol/L 136-146 [facility] Serum or plasma total biliru bin measurement (mass/volume)Ordered By: Yolie Newmangosia on 09-23-2022 Bilirubin [Mass/Vol] 0.3 mg/dL 0.3-1.2 [facility] Serum or plasma total carbon dioxide measurement (moles/volume)Ordered By: Yolie Noe on 09-23-2022 CO2 [Moles/Vol] 21.7 mmol/L 22.0-30.0 [facility] Serum or plasma urea nitroge n measurement (mass/volume)Ordered By: Yolie Noe on 09-23-2022 Urea nitrogen [Mass/Vol] 70 mg/dL 9-23 [facility] WBC Auto (Bld) [#/Vol]Ordere d By: Yolie Newmangosia on 09-23-2022 WBC (Bld) [#/Vol] 9.9 10*3/uL 4.1-10.5 [facility] Albumin [Mass/volume] in Ser um or PlasmaOrdered By: Ada Uriostegui on 08-03-2022 Albumin [Mass/Vol] 3.4 g/dL 3.2-5.[address] [facility] [address] biopsyOrdered By: Jonathan christensen on 08-03-2022 Transferrin [Mass/Vol] 270 mg/dL 180-380 [facility] Creatinine and Glomerular fi ltration rate.predicted panel (S/P/Bld)Ordered By: Ada Uriostegui on 08-03-2022 Creatinine [Mass/Vol] 4.98 mg/dL 0.64-1.27 [facility] Erythrocyte distribution wid th Auto (RBC) [Ratio]Ordered By: Ada Uriostegui on 08-03-2022 Erythrocyte distribution width (RBC) [Ratio] 14.4 % 12.0-14.8 [facility] Estimated glomerular filtrat ion rate (GFR) non- AmericanOrdered By: Ada Uriostegui on 08-03-2022 GFR/1.73 sq M.predicted among non-blacks MDRD (S/P/Bld) [Vol rate/Area] 12 mL/Min [facility] Ferritin [Mass/volume] in Se rum or PlasmaOrdered By: Ada Uriostegui on 08-03-2022 Ferritin [Mass/Vol] 331.3 ng/mL 23.9-336.2 [facility] Hematocrit Auto (Bld) [Volum e fraction]Ordered By: Ada Uriostegui on 08-03-2022 Hematocrit (Bld) [Volume fraction] 31.6 % 38.8-50.0 [facility] Hemoglobin [Mass/volume] in BloodOrdered By: Ada Uriostegui on 08-03-2022 Hemoglobin (Bld) [Mass/Vol] 10.3 g/dL 13.0-17.0 [facility] Iron [Mass/volume] in Serum or PlasmaOrdered By: Ada Uriostegui on 08-03-2022 Iron [Mass/Vol] 90 ug/dL 40-160 [facility] Iron binding capacity [Mass/ volume] in Serum or PlasmaOrdered By: Ada Mooyd on 08-03-2022 Iron binding capacity [Mass/Vol] 378 ug/dL 255-450 [facility] Iron saturation [Mass Fracti on] in Serum or PlasmaOrdered By: Ada Uriostegui on 08-03-2022 Iron saturation [Mass fraction] 23.0 % 20-50 [facility] MCH Auto (RBC) [Entitic mass ]Ordered By: Ada Uriostegui on 08-03-2022 MCH (RBC) [Entitic mass] 29.2 pg 27.5-35.2 [facility] MCHC Auto (RBC) [Mass/Vol]Or dered By: Ada Uriostegui on 08-03-2022 MCHC (RBC) [Mass/Vol] 32.6 g/dL 32.5-35.6 [facility] MCV Auto (RBC) [Entitic vol] Ordered By: Ada Uriostegui on 08-03-2022 MCV (RBC) [Entitic vol] 89.7 fL 83.5-101 [facility] No Panel InformationOrdered By: Ada Uriostegui on 08-03-2022 25-Hydroxy Vitamin D Total 14.6 ng/mL 30-100 [facility] Comment on above: VITAMIN D STATUS 25( [place])VITAMIN D RANGE (ng/mL) Deficient <20 Insufficient 20 to <30Sufficient 30 to 100Reference: Sophy MF,Glendy NC, Nitin RAMOS, et al. Evaluation,treatment, and prevention of vitamin D deficiency; an Endocrine Society clinical practice guideline. JCEM. 2010; 96(7):1911-30. Estimated GFR () 15 mL/Min [facility] Comment on above: GFR estimated refere nce range: According to KDOQI guidelines, <60 ml/min/1.73m2 is sufficient to diagnose a patient with chronic kidney disease. Pharmacy Creatinine Clearance (Chem N/A [facility] Phosphate [Mass/volume] in S james or PlasmaOrdered By: Ada Uriostegui on 08-03-2022 Phosphate [Mass/Vol] 3.1 mg/dL 2.5-4.6 [facility] Platelet mean volume Auto (B ld) [Entitic vol]Ordered By: Ada Uriostegui on 08-03-2022 Platelet mean volume (Bld) [Entitic vol] 7.2 fL 6.6-10.1 [facility] Platelets Auto (Bld) [#/Vol] Ordered By: Ada Uriostegui on 08-03-2022 Platelets (Bld) [#/Vol] 390 10*3/uL 150-450 [facility] RBC Auto (Bld) [#/Vol]Ordere d By: Ada Moody on 08-03-2022 RBC (Bld) [#/Vol] 3.52 10*6/uL 3.90-5.[address] [facility] Serum or plasma anion gap de terminationOrdered By: Ada Uriostegui on 08-03-2022 Anion gap [Moles/Vol] 14.6 mmol/L 6.0-15.0 [facility] Serum or plasma calcium shante urement (mass/volume)Ordered By: Ada Uriostegui on 08-03-2022 Calcium [Mass/Vol] 9.0 mg/dL 8.2-10.2 [facility] Serum or plasma chloride alber surement (moles/volume)Ordered By: Ada Uriostegui on 08-03-2022 Chloride [Moles/Vol] 105 mmol/L 95-114 [facility] Serum or plasma glucose shante urement (mass/volume)Ordered By: Ada Uriostegui on 08-03-2022 Glucose [Mass/Vol] 188 mg/dL 70-100 [facility] Comment on above: ADA recommended refe rence rangeRandom Glucose Reference Range is dependent on time and content of last meal. Glucose of more than 200 mg/dL in a nonstressed, ambulatory subject supports the diagnosis of Diabetes Mellitus. Serum or plasma intact parat hyroid hormone measurement (mass/volume)Ordered By: Ada Uriostegui on 08-03-2022 Parathyrin.intact [Mass/Vol] 151.8 pg/mL 12-88 [facility] Serum or plasma potassium me asurement (moles/volume)Ordered By: Ada Uriostegui on 08-03-2022 Potassium [Moles/Vol] 5.1 mmol/L 3.5-5.1 [facility] Serum or plasma sodium measu rement (moles/volume)Ordered By: Ada Uriostegui on 08-03-2022 Sodium [Moles/Vol] 139 mmol/L 136-146 [facility] Serum or plasma total carbon dioxide measurement (moles/volume)Ordered By: Ada Uriostegui on 08-03-2022 CO2 [Moles/Vol] 24.5 mmol/L 22.0-30.0 [facility] Serum or plasma urea nitroge n measurement (mass/volume)Ordered By: Ada Uriostegui on 08-03-2022 Urea nitrogen [Mass/Vol] 60 mg/dL 05-29 [facility] Serum or plasma uric acid me asurement (mass/volume)Ordered By: Ada Uriostegui on 08-03-2022 Urate [Mass/Vol] 5.6 mg/dL 2.6-7.2 [facility] WBC Auto (Bld) [#/Vol]Ordere d By: Ada Uriostegui on 08-03-2022 WBC (Bld) [#/Vol] 9.5 10*3/uL 4.1-10.5 [facility] Basophils Auto (Bld) [#/Vol] Ordered By: Yosef Castillo on 07-29-2022 Basophils (Bld) [#/Vol] 0.1 10*3/uL 0.0-0.2 [facility] Basophils/100 WBC Auto (Bld) Ordered By: Yosef Castillo on 07-29-2022 Basophils/100 WBC (Bld) 0.9 % . [facility] Beta-hydroxybutyric acid alber surementOrdered By: Yosef Castillo on 07-29-2022 Beta hydroxybutyrate [Mass/Vol] 0.25 mmol/L 0.05-0.27 [facility] Body fluid albumin measureme nt (mass/volume)Ordered By: Yosef Castillo on 07-29-2022 Albumin (Body fld) [Mass/Vol] 3.6 g/dL 3.2-5.5 [facility] Creatinine and Glomerular fi ltration rate.predicted panel (S/P/Bld)Ordered By: Yosef Castillo on 07-29-2022 Creatinine [Mass/Vol] 5.97 mg/dL 0.64-1.27 [facility] Eosinophils Auto (Bld) [#/Vo l]Ordered By: Yosef Castillo on 07-29-2022 Eosinophils (Bld) [#/Vol] 0.3 10*3/uL 0.0-0.45 [facility] Eosinophils/100 WBC Auto (Bl d)Ordered By: Yosef Castillo on 07-29-2022 Eosinophils/100 WBC (Bld) 2.9 % . [facility] Erythrocyte distribution wid th Auto (RBC) [Ratio]Ordered By: Yosef Castillo on 07-29-2022 Erythrocyte distribution width (RBC) [Ratio] 14.1 % 12.0-14.8 [facility] Estimated glomerular filtrat ion rate (GFR) non- AmericanOrdered By: Yosef Castillo on 07-29-2022 GFR/1.73 sq M.predicted among non-blacks MDRD (S/P/Bld) [Vol rate/Area] 10 mL/Min [facility] Globulin Calc (S) [Mass/Vol] Ordered By: Yosef Castillo on 07-29-2022 Globulin (S) [Mass/Vol] 3.3 g/dL [facility] Glucose Glucometer (BldC) [M ass/Vol]Ordered By: Yosef Castillo on 07-29-2022 Glucose [Mass/Vol] 266 mg/dL [facility] Comment on above: Random Glucose Refer ence Range is dependent on time and content of last meal. Glucose of more than 200 mg/dL in a nonstressed, ambulatory subject supports the diagnosis of Diabetes Mellitus. Hematocrit Auto (Bld) [Volum e fraction]Ordered By: Yosef Csatillo on 07-29-2022 Hematocrit (Bld) [Volume fraction] 32.7 % 38.8-50.0 [facility] Hemoglobin [Mass/volume] in BloodOrdered By: Yosef Castillo on 07-29-2022 Hemoglobin (Bld) [Mass/Vol] 10.8 g/dL 13.0-17.0 [facility] Laboratory - Chemistry and C hemistry - challengeOrdered By: Yosef Castillo on 07-29-2022 CO2 [Moles/Vol] 22.9 mmol/L 24.0-29.0 [facility] HCO3 (Bld) [Moles/Vol] 21.7 mmol/L 23.0-29.0 [facility] Lipase [Catalytic activity/Vol] 38.0 U/L 22-51 [facility] Laboratory - Hematology and Cell countsOrdered By: Yosef Castillo on 07-29-2022 Nucleated RBC/100 WBC (Bld) [Ratio] 0.0 % 0-0.5 [facility] Leukocytes [#/volume] in Blo od by Automated countOrdered By: Yosef Castillo on 07-29-2022 WBC (Bld) [#/Vol] 11.0 10*3/uL 4.5-11.[address] [facility] Lymphocytes Auto (Bld) [#/Vo l]Ordered By: Yosef Castillo on 07-29-2022 Lymphocytes (Bld) [#/Vol] 2.0 10*3/uL 1.00-4.8 [facility] Lymphocytes/100 WBC Auto (Bl d)Ordered By: Yosef Castillo on 07-29-2022 Lymphocytes/100 WBC (Bld) 17.9 % . [facility] MCH Auto (RBC) [Entitic mass ]Ordered By: Yosef Castillo on 07-29-2022 MCH (RBC) [Entitic mass] 29.4 pg 27.5-35.2 [facility] MCHC Auto (RBC) [Mass/Vol]Or dered By: Yosef Castillo on 07-29-2022 MCHC (RBC) [Mass/Vol] 33.0 g/dL 32.5-35.6 [facility] MCV Auto (RBC) [Entitic vol] Ordered By: Yosef Castillo on 07-29-2022 MCV (RBC) [Entitic vol] 88.8 fL 83.5-101 [facility] Monocytes Auto (Bld) [#/Vol] Ordered By: Yosef Castillo on 07-29-2022 Monocytes (Bld) [#/Vol] 0.7 10*3/uL 0.0-0.8 [facility] Monocytes/100 WBC Auto (Bld) Ordered By: Yosef Castillo on 07-29-2022 Monocytes/100 WBC (Bld) 5.9 % . [facility] Neutrophils Auto (Bld) [#/Vo l]Ordered By: Yosef Castillo on 07-29-2022 Neutrophils (Bld) [#/Vol] 8.0 10*3/uL 1.8-7.7 [facility] Neutrophils/100 WBC Auto (Bl d)Ordered By: Yosef Castillo on 07-29-2022 Neutrophils/100 WBC (Bld) 72.4 % . [facility] No Panel InformationOrdered By: Yosef Castillo on 07-29-2022 Blood Gas Critical Value See comment [facility] Comment on above: Critical Value metz d on: 07/29/2022 at 00:48 Blood Gas Sample Site Venous Fir [facility] FiO2 21 % [facility] Venous Blood Base Excess -3.7 mmol/L -3.0-3.0 [facility] Venous Blood Oxygen Content 5.6 mmol/L 6.6-9.7 [facility] Venous Blood Oxygen Saturation 79.1 % 73.0-76.0 [facility] Venous Blood Partial Pressure CO2 40.4 mm[Hg] 38.0-50.0 [facility] Venous Blood Partial Pressure O2 41.6 mm[Hg] 35.0-45.0 [facility] Venous Blood pH 7.35 7.32-7.43 [facility] Estimated GFR () 12 mL/Min [facility] Comment on above: GFR estimated refere nce range: According to KDOQI guidelines, <60 ml/min/1.73m2 is sufficient to diagnose a patient with chronic kidney disease. Pharmacy Creatinine Clearance (Chem 21.83 [facility] Platelet mean volume Auto (B ld) [Entitic vol]Ordered By: Yosef Castillo on 07-29-2022 Platelet mean volume (Bld) [Entitic vol] 7.6 fL 6.6-10.1 [facility] Platelets Auto (Bld) [#/Vol] Ordered By: Yosef Castillo on 07-29-2022 Platelets (Bld) [#/Vol] 382 10*3/uL 150-450 [facility] Protein [Mass/volume] in Ser um or PlasmaOrdered By: Yosef Castillo on 07-29-2022 Protein [Mass/Vol] 6.9 g/dL 6.1-7.9 [facility] RBC Auto (Bld) [#/Vol]Ordere d By: Yosef Castillo on 07-29-2022 RBC (Bld) [#/Vol] 3.68 10*6/uL 3.90-5.[address] [facility] Serum or plasma alanine lawson otransferase measurement without P-5'-P (enzymatic activiOrdered By: Yosef Castillo on 07-29-2022 ALT No additional P-5'-P [Catalytic activity/Vol] 17 U/L 10-60 [facility] Serum or plasma albumin/glob ulin mass ratioOrdered By: Yosef Castillo on 07-29-2022 Albumin/Globulin [Mass ratio] 1.1 {ratio} [facility] Serum or plasma alkaline elliot sphatase measurement (enzymatic activity/volume)Ordered By: Yosef Castillo on 07-29-2022 ALP [Catalytic activity/Vol] 52 U/L 32-92 [facility] Serum or plasma anion gap de terminationOrdered By: Yosef Castillo on 07-29-2022 Anion gap [Moles/Vol] TNP [facility] Comment on above: Test not performed Serum or plasma aspartate am inotransferase measurement (enzymatic activity/volume)Ordered By: Yosef Castillo on 07-29-2022 AST [Catalytic activity/Vol] 26 U/L 10-42 [facility] Serum or plasma calcium shante urement (mass/volume)Ordered By: Yosef Castillo on 07-29-2022 Calcium [Mass/Vol] 8.9 mg/dL 8.2-10.2 [facility] Serum or plasma chloride alber surement (moles/volume)Ordered By: Yosef Castillo on 07-29-2022 Chloride [Moles/Vol] 105 mmol/L 95-114 [facility] Serum or plasma glucose shante urement (mass/volume)Ordered By: Yosef Castillo on 07-29-2022 Glucose [Mass/Vol] 233 mg/dL 70-100 [facility] Comment on above: ADA recommended refe rence rangeRandom Glucose Reference Range is dependent on time and content of last meal. Glucose of more than 200 mg/dL in a nonstressed, ambulatory subject supports the diagnosis of Diabetes Mellitus. Serum or plasma potassium me asurement (moles/volume)Ordered By: Yosef Castillo on 07-29-2022 Potassium [Moles/Vol] 4.4 mmol/L 3.5-5.1 [facility] Serum or plasma sodium measu rement (moles/volume)Ordered By: Yosef Castillo on 07-29-2022 Sodium [Moles/Vol] 142 mmol/L 136-146 [facility] Serum or plasma total biliru bin measurement (mass/volume)Ordered By: Yosef Castillo on 07-29-2022 Bilirubin [Mass/Vol] 0.7 mg/dL 0.3-1.2 [facility] Serum or plasma total carbon dioxide measurement (moles/volume)Ordered By: Yosef Castillo on 07-29-2022 CO2 [Moles/Vol] 21.9 mmol/L 22.0-30.0 [facility] Serum or plasma urea nitroge n measurement (mass/volume)Ordered By: Yosef Castillo on 07-29-2022 Urea nitrogen [Mass/Vol] 74 mg/dL 05-29 [facility] TSH DL <= 0.005 mIU/L QnOrde red By: Yosef Castillo on 07-29-2022 TSH Qn 2.69 m[IU]/L 0.45-5.33 [facility] Thyroxine (T4) free [Mass/vo lume] in Serum or PlasmaOrdered By: Yosef Castillo on 07-29-2022 Free T4 [Mass/Vol] 0.78 ng/dL 0.61-1.12 [facility] Troponin I.cardiac [Mass/vol ume] in Serum or Plasma by High sensitivity methodOrdered By: Yosef Castillo on 07-29-2022 Troponin I.cardiac High sensitivity method [Mass/Vol] 7 pg/mL 0-20 [facility] C [place] 07-20-2022 C Wound --- Final [...] <=1 V Vancomycin S 1 V Normal [facility] Comment on above: Performed By: #### W DC #### [facility] (DEFAULT) [address] [place] [address] [address] No Panel Informationon 07-17 Body mass index (BMI) [Percentile] Per age and sex 0.1 {percentile} Invalid Interpretation Code [id number] Per age and sex 0.1 {percentile} Invalid Interpretation Code [facility] [employer] Body fluid albumin measureme nt (mass/volume)Ordered By: Ada Uriostegui on 06-27-2022 Albumin (Body fld) [Mass/Vol] 3.6 g/dL 3.2-5.[address] [facility] [address] biopsyOrdered By: Jonathan christensen on 06-27-2022 Transferrin [Mass/Vol] 286 mg/dL 180-380 [facility] Creatinine and Glomerular fi ltration rate.predicted panel (S/P/Bld)Ordered By: Ada Uriostegui on 06-27-2022 Creatinine [Mass/Vol] 4.86 mg/dL 0.64-1.27 [facility] Erythrocyte distribution wid th Auto (RBC) [Ratio]Ordered By: Ada Uriostegui on 06-27-2022 Erythrocyte distribution width (RBC) [Ratio] 14.0 % 12.0-14.8 [facility] Estimated glomerular filtrat ion rate (GFR) non- AmericanOrdered By: Ada Uriostegui on 06-27-2022 GFR/1.73 sq M.predicted among non-blacks MDRD (S/P/Bld) [Vol rate/Area] 13 mL/Min [facility] Ferritin [Mass/volume] in Se rum or PlasmaOrdered By: Ada Uriostegui on 06-27-2022 Ferritin [Mass/Vol] 383.6 ng/mL 23.9-336.2 [facility] Hematocrit Auto (Bld) [Volum e fraction]Ordered By: Ada Uriostegui on 06-27-2022 Hematocrit (Bld) [Volume fraction] 37.2 % 38.8-50.0 [facility] Hemoglobin [Mass/volume] in BloodOrdered By: Ada Uriostegui on 06-27-2022 Hemoglobin (Bld) [Mass/Vol] 12.1 g/dL 13.0-17.0 [facility] Iron [Mass/volume] in Serum or PlasmaOrdered By: Ada Uriostegui on 06-27-2022 Iron [Mass/Vol] 70 ug/dL 40-160 [facility] Iron binding capacity [Mass/ volume] in Serum or PlasmaOrdered By: Ada Moody on 06-27-2022 Iron binding capacity [Mass/Vol] 400 ug/dL 255-450 [facility] Iron saturation [Mass Fracti on] in Serum or PlasmaOrdered By: Ada Moody on 06-27-2022 Iron saturation [Mass fraction] 17.0 % 20-50 [facility] Laboratory - Chemistry and C hemistry - challengeOrdered By: Ada Uriostegui on 06-27-2022 Magnesium [Mass/Vol] 1.9 mg/dL 1.6-2.6 [facility] MCH Auto (RBC) [Entitic mass ]Ordered By: Ada Uriostegui on 06-27-2022 MCH (RBC) [Entitic mass] 29.2 pg 27.5-35.2 [facility] MCHC Auto (RBC) [Mass/Vol]Or dered By: Ada Moody on 06-27-2022 MCHC (RBC) [Mass/Vol] 32.6 g/dL 32.5-35.6 [facility] MCV Auto (RBC) [Entitic vol] Ordered By: Ada Uriostegui on 06-27-2022 MCV (RBC) [Entitic vol] 89.7 fL 83.5-101 [facility] No Panel InformationOrdered By: Ada Uriostegui on 06-27-2022 25-Hydroxy Vitamin D Total 13.3 ng/mL 30-100 [facility] Comment on above: VITAMIN D STATUS 25( [place])VITAMIN D RANGE (ng/mL) Deficient <20 Insufficient 20 to <30Sufficient 30 to 100Reference: Sophy MF,Glendy NC, Nitin RAMOS, et al. Evaluation,treatment, and prevention of vitamin D deficiency; an Endocrine Society clinical practice guideline. JCEM. 2010; 96(7):1911-30. Estimated GFR () 15 mL/Min [facility] Comment on above: GFR estimated refere nce range: According to KDOQI guidelines, <60 ml/min/1.73m2 is sufficient to diagnose a patient with chronic kidney disease. Pharmacy Creatinine Clearance (Chem N/A [facility] Phosphate [Mass/volume] in S james or PlasmaOrdered By: Ada Uriostegui on 06-27-2022 Phosphate [Mass/Vol] 4.1 mg/dL 2.5-4.6 [facility] Platelet mean volume Auto (B ld) [Entitic vol]Ordered By: Ada Uriostegui on 06-27-2022 Platelet mean volume (Bld) [Entitic vol] 7.3 fL 6.6-10.1 [facility] Platelets Auto (Bld) [#/Vol] Ordered By: Ada Uriostegui on 06-27-2022 Platelets (Bld) [#/Vol] 454 10*3/uL 150-450 [facility] RBC Auto (Bld) [#/Vol]Ordere d By: Ada Whelanr on 06-27-2022 RBC (Bld) [#/Vol] 4.15 10*6/uL 3.90-5.[address] [facility] Serum or plasma anion gap de terminationOrdered By: Ada Uriostegui on 06-27-2022 Anion gap [Moles/Vol] 15.2 mmol/L 6.0-15.0 [facility] Serum or plasma calcium shante urement (mass/volume)Ordered By: Ada Uroistegui on 06-27-2022 Calcium [Mass/Vol] 8.9 mg/dL 8.2-10.2 [facility] Serum or plasma chloride alber surement (moles/volume)Ordered By: Ada Uriostegui on 06-27-2022 Chloride [Moles/Vol] 103 mmol/L 95-114 [facility] Serum or plasma glucose shante urement (mass/volume)Ordered By: Ada Uriostegui on 06-27-2022 Glucose [Mass/Vol] 115 mg/dL 70-100 [facility] Comment on above: ADA recommended refe rence rangeRandom Glucose Reference Range is dependent on time and content of last meal. Glucose of more than 200 mg/dL in a nonstressed, ambulatory subject supports the diagnosis of Diabetes Mellitus. Serum or plasma intact parat hyroid hormone measurement (mass/volume)Ordered By: Ada Uriostegui on 06-27-2022 Parathyrin.intact [Mass/Vol] 168.5 pg/mL [facility] Serum or plasma potassium me asurement (moles/volume)Ordered By: Ada Uriostegui on 06-27-2022 Potassium [Moles/Vol] 4.6 mmol/L 3.5-5.1 [facility] Serum or plasma sodium measu rement (moles/volume)Ordered By: Ada Uriostegui on 06-27-2022 Sodium [Moles/Vol] 137 mmol/L 136-146 [facility] Serum or plasma total carbon dioxide measurement (moles/volume)Ordered By: Ada Uriostegui on 06-27-2022 CO2 [Moles/Vol] 23.4 mmol/L 22.0-30.0 [facility] Serum or plasma urea nitroge n measurement (mass/volume)Ordered By: Ada Uriostegui on 06-27-2022 Urea nitrogen [Mass/Vol] 52 mg/dL 05-29 [facility] WBC Auto (Bld) [#/Vol]Ordere d By: Ada Uriostegui on 06-27-2022 WBC (Bld) [#/Vol] 9.4 10*3/uL 4.1-10.5 [facility] Covid-19 PCR (CVDTB)on 06-06 SARS-CoV-2 (COVID-19) RNA SHAY+probe Ql (Unsp spec) Not detected Normal NOT DETECTED [facility] Comment on above: Result Comment: This test is not yet approved or cleared by the [place] FDA. When there are no FDA-approved or cleared tests available, and other criteria are met, FDA can make tests available under an emergency access mechanism called an Emergency Use Authorization (EUA). The EUA for this test is supported by the Manager Foreign of Health and Human Service's (HHS's) declaration [...] consistent with SARS-CoV-2. Performed By: #### [facility], [facility] #### [facility] [address] [place] [address] Dr. Monroe Winn Blood hemoglobin measurement (mass/volume)Ordered By: Ada Uriostegui on 05-16-2022 Hemoglobin (Bld) [Mass/Vol] 11.2 g/dL 13.0-17.0 [facility] Body fluid albumin measureme nt (mass/volume)Ordered By: Ada Uriostegui on 05-16-2022 Albumin (Body fld) [Mass/Vol] 3.5 g/dL 3.2-5.[address] [facility] [address] biopsyOrdered By: Jonathan christensen on 05-16-2022 Transferrin [Mass/Vol] 300 mg/dL 180-380 [facility] Creatinine and Glomerular fi ltration rate.predicted panel (S/P/Bld)Ordered By: Ada Uriostegui on 05-16-2022 Creatinine [Mass/Vol] 5.05 mg/dL 0.64-1.27 [facility] Erythrocyte distribution wid th Auto (RBC) [Ratio]Ordered By: Ada Uriostegui on 05-16-2022 Erythrocyte distribution width (RBC) [Ratio] 13.7 % 12.0-14.8 [facility] Estimated glomerular filtrat ion rate (GFR) non- AmericanOrdered By: Ada Uriostegui on 05-16-2022 GFR/1.73 sq M.predicted among non-blacks MDRD (S/P/Bld) [Vol rate/Area] 12 mL/Min [facility] Ferritin [Mass/volume] in Se rum or PlasmaOrdered By: Ada Uriostegui on 05-16-2022 Ferritin [Mass/Vol] 447.8 ng/mL 23.9-336.2 [facility] Hematocrit Auto (Bld) [Volum e fraction]Ordered By: Ada Uriostegui on 05-16-2022 Hematocrit (Bld) [Volume fraction] 33.5 % 38.8-50.0 [facility] Iron [Mass/volume] in Serum or PlasmaOrdered By: Ada Moody on 05-16-2022 Iron [Mass/Vol] 73 ug/dL 40-160 [facility] Iron binding capacity [Mass/ volume] in Serum or PlasmaOrdered By: Ada Moody on 05-16-2022 Iron binding capacity [Mass/Vol] 420 ug/dL 255-450 [facility] Iron saturation [Mass Fracti on] in Serum or PlasmaOrdered By: Ada Uriostegui on 05-16-2022 Iron saturation [Mass fraction] 17.0 % 20-50 [facility] Laboratory - Chemistry and C hemistry - challengeOrdered By: Ada Uriostegui on 05-16-2022 Magnesium [Mass/Vol] 2.0 mg/dL 1.6-2.6 [facility] MCH Auto (RBC) [Entitic mass ]Ordered By: Ada Moody on 05-16-2022 MCH (RBC) [Entitic mass] 29.8 pg 27.5-35.2 [facility] MCHC Auto (RBC) [Mass/Vol]Or dered By: Ada Moody on 05-16-2022 MCHC (RBC) [Mass/Vol] 33.4 g/dL 32.5-35.6 [facility] MCV Auto (RBC) [Entitic vol] Ordered By: Ada Uriostegui on 05-16-2022 MCV (RBC) [Entitic vol] 89.1 fL 83.5-101 [facility] No Panel InformationOrdered By: Ada Uriostegui on 05-16-2022 25-Hydroxy Vitamin D Total 13.9 ng/mL 30-100 [facility] Comment on above: VITAMIN D STATUS 25( [...] 2010; 96(7):1911-30. Estimated GFR () 15 mL/Min [facility] Comment on above: GFR estimated refere nce range: According to KDOQI guidelines, <60 ml/min/1.73m2 is sufficient to diagnose a patient with chronic kidney disease. Pharmacy Creatinine Clearance (Chem N/A [facility] Phosphate [Mass/volume] in S james or PlasmaOrdered By: Ada Uriostegui on 05-16-2022 Phosphate [Mass/Vol] 3.9 mg/dL 2.5-4.6 [facility] Platelet mean volume Auto (B ld) [Entitic vol]Ordered By: Ada Uriostegui on 05-16-2022 Platelet mean volume (Bld) [Entitic vol] 6.9 fL 6.6-10.1 [facility] Platelets Auto (Bld) [#/Vol] Ordered By: Aad Uriostegui on 05-16-2022 Platelets (Bld) [#/Vol] 496 10*3/uL 150-450 [facility] RBC Auto (Bld) [#/Vol]Ordere d By: Ada Uriostegui on 05-16-2022 RBC (Bld) [#/Vol] 3.76 10*6/uL 3.90-5.[address] [facility] Serum or plasma anion gap de terminationOrdered By: Ada Uriostegui on 05-16-2022 Anion gap [Moles/Vol] 13.7 mmol/L 6.0-15.0 [facility] Serum or plasma calcium shante urement (mass/volume)Ordered By: Ada Uriostegui on 05-16-2022 Calcium [Mass/Vol] 9.2 mg/dL 8.2-10.2 [facility] Serum or plasma chloride alber surement (moles/volume)Ordered By: Ada Uriostegui on 05-16-2022 Chloride [Moles/Vol] 105 mmol/L 95-114 [facility] Serum or plasma glucose shante urement (mass/volume)Ordered By: Ada Uriostegui on 05-16-2022 Glucose [Mass/Vol] 177 mg/dL 70-100 [facility] Comment on above: ADA recommended refe [...] Uriostegui on 05-16-2022 Parathyrin.intact [Mass/Vol] 121.3 pg/mL 12-88 [facility] Serum or plasma potassium me asurement (moles/volume)Ordered By: Ada Uriostegui on 05-16-2022 Potassium [Moles/Vol] 4.9 mmol/L 3.5-5.1 [facility] Serum or plasma sodium measu rement (moles/volume)Ordered By: Ada Uriostegui on 05-16-2022 Sodium [Moles/Vol] 137 mmol/L 136-146 [facility] Serum or plasma total carbon dioxide measurement (moles/volume)Ordered By: Ada Moody on 05-16-2022 CO2 [Moles/Vol] 23.2 mmol/L 22.0-30.0 [facility] Serum or plasma urea nitroge n measurement (mass/volume)Ordered By: Ada Topetedir on 05-16-2022 Urea nitrogen [Mass/Vol] 54 mg/dL 05-29 [facility] WBC Auto (Bld) [#/Vol]Ordere d By: Ada Moody on 05-16-2022 WBC (Bld) [#/Vol] 9.8 10*3/uL 4.1-10.5 [facility] SINGLE ANTIGEN CLASS 1on METHOD Class I Single Antigen Normal [facility] Comment on above: Order Comment: Some [...] to frequency. Performed By: #### 4 1533, 21087, 42013, 57102, 59149, 68924 #### [facility] [address] [place] [address], [facility] SPECIFICITY Normal [facility] Comment on above: Order Comment: Some [...] 34 B:76 Performed By: #### 4 1533, 41994, 75021, 32240, 55910, 78546 #### [facility] [address] [place] [address], [facility] SINGLE ANTIGEN CLASS 2on COMMENTS Normal [facility] Comment on above: Order Comment: Some [...] Specificites Found Performed By: #### 4 1533, 55686, 62694, 49793, 01165, 68982 #### [facility] [address] [place] [address], [facility] Result Comment: Clas s I Antigen Microbeads Potential specificites added to the watch list. METHOD Class II Single Antigen Normal [facility] Comment on above: Order Comment: Some [...] to frequency. Performed By: #### 4 1533, 59048, 75187, 68038, 11966, 88094 #### [facility] [address] [place] [address], [facility] SIGNED BY Normal [facility] Comment on above: Order Comment: Some [...] to frequency. Result Comment: Delano Nuno, MS,CHT(RAJESH),MT(ASCP) Product Specialist, Transplant Immunology Performed By: #### 4 1533, 18404, 07812, 08808, 58796, 22119 #### [facility] [address] BLOOD TYPE AND RHon 04-07-20 ABO INTERPRETATION A Normal [facility] Comment on above: Performed By: #### 4 1533, 85956, 46471, 13307, 99934, 22852 #### [facility] [address] [facility]. [address] RH INTERPRETATION Positive Normal [facility] Comment on above: Performed By: #### 4 1533, 78079, 62016, 24927, 29366, 39787 #### [facility] [address] [facility]. [address] BNP (B-TYPE NATRIURETIC PEPT BALTAZAR)on 04-07-2022 Natriuretic peptide B (Bld) [Mass/Vol] 32 pg/mL Normal 0-100 [facility] Comment on above: Result Comment: Give n the appropriate clinical setting a BNP result of >100 pg/mL indicates congestive heart failure. Performed By: #### 4 1533, 65114, 69954, 20169, 99406, 95402 #### [facility] [address] [facility] [place] [address], [facility] CBC W/DIFFon 04-07-2022 ABS IMM GRANS 0.1 10*3/uL Normal 0.0-0.2 [facility] Comment on above: Performed By: #### 4 1533, 96367, 26609, 47732, 13424, 61005 #### [facility] [address] [place] [address], [facility] ABS NEUTROPHILS 6.3 10*3/uL Normal 1.6-7.6 [facility] Comment on above: Performed By: #### 4 1533, 68019, 30798, 21350, 07165, 74428 #### [facility] [address] [place] [address], [facility] Basophils (Bld) [#/Vol] 0.1 10*3/uL Normal 0.0-0.2 [facility] Comment on above: Performed By: #### 4 1533, 25144, 89368, 22540, 02893, 78456 #### [facility] [address] [place] [address], [facility] Basophils/100 WBC (Bld) 0.5 % Normal 0.0-1.0 [facility] Comment on above: Performed By: #### 4 1533, 62031, 22745, 50171, 64140, 65648 #### [facility] [address] [place] [address], [facility] Eosinophils (Bld) [#/Vol] 0.3 10*3/uL Normal 0.0-0.5 [facility] Comment on above: Performed By: #### 4 1533, 48540, 73712, 07209, 51214, 78485 #### [facility] [address] [place] [address], [facility] Eosinophils/100 WBC (Bld) 2.5 % Normal 0.0-6.0 [facility] Comment on above: Performed By: #### 4 1533, 84576, 59367, 84947, 86569, 74451 #### [facility] [address] [place] [address], [place] Erythrocyte distribution width (RBC) [Ratio] 13.2 % Normal 11.5-15.0 [facility] Comment on above: Performed By: #### 4 1533, 01033, 58828, 42016, 12679, 75816 #### [facility] [address] [place] [address], [facility] Hematocrit (Bld) [Volume fraction] 34.6 % Low 39.0-50.0 [facility] Comment on above: Performed By: #### 4 1533, 31695, 30642, 24863, 22512, 08329 #### [facility] [address] [place] [address], [facility] Hemoglobin (Bld) [Mass/Vol] 11.4 g/dL Low 13.0-17.0 [facility] Comment on above: Performed By: #### 4 1533, 61112, 49938, 89988, 09785, 19847 #### [facility] [address] [place] [address], [facility] IMMATURE GRANS 1.0 % Normal 0.0-1.0 [facility] Comment on above: Performed By: #### 4 1533, 42503, 66123, 75444, 31632, 58548 #### [facility] [address] [facility] [place] [address], [facility] Lymphocytes (Bld) [#/Vol] 2.5 10*3/uL Normal 1.2-4.0 [facility] Comment on above: Performed By: #### 4 1533, 42893, 98737, 82032, 95225, 26583 #### [facility] [address] [place] [address], [facility] Lymphocytes/100 WBC (Bld) 25.2 % Normal 20.0-45.0 [facility] Comment on above: Performed By: #### 4 1533, 00832, 42876, 26615, 12652, 27442 #### [facility] [address] [address], [facility] MCH (RBC) [Entitic mass] 29.3 pg Normal 27.0-33.0 [facility] Comment on above: Performed By: #### 4 1533, 15384, 29866, 24101, 59456, 65185 #### [facility] [address] [place] [address], [facility] MCHC (RBC) [Mass/Vol] 32.9 g/dL Normal 32.0-35.0 [facility] Comment on above: Performed By: #### 4 1533, 79362, 53491, 22032, 42598, 59104 #### [facility] [address] [place] [address], [facility] MCV (RBC) [Entitic vol] 88.9 fL Normal 82.0-98.0 [facility] Comment on above: Performed By: #### 4 1533, 56168, 71949, 36464, 16454, 02111 #### [facility] [address] [place] [address], [facility] Monocytes (Bld) [#/Vol] 0.8 10*3/uL Normal 0.1-1.0 [facility] Comment on above: Performed By: #### 4 1533, 13329, 61716, 79600, 06356, 21227 #### [facility] [address] [facility] [place] [address], [facility] MONOS 8.3 % Normal 5.0-12.0 [facility] Comment on above: Performed By: #### 4 1533, 07779, 00625, 04237, 51225, 69887 #### [facility] [address] [place] [address], [facility] Neutrophils/100 WBC (Bld) 62.5 % Normal 40.0-72.0 [facility] Comment on above: Performed By: #### 4 1533, 85562, 50622, 46043, 27722, 44962 #### [facility] [address] [place] [address], [facility] Nucleated RBC/100 WBC (Bld) [Ratio] 0 % Normal 0-0 [facility] [facility] Comment on above: Performed By: #### 4 1533, 87595, 29541, 68904, 87900, 23320 #### [facility] [address] [place] [address], [facility] PLAT CNT 442 10*3/uL High 150-400 [facility] Comment on above: Performed By: #### 4 1533, 40462, 82445, 99648, 06569, 41635 #### [facility] [address] [facility] [place] [address], [facility] RBC (Bld) [#/Vol] 3.89 10*6/uL Low 4.20-5.70 [facility] Comment on above: Performed By: #### 4 1533, 69498, 15593, 93487, 34174, 34085 #### [facility] [address] [facility] [place] [address], [facility] WBC (Bld) [#/Vol] 10.00 10*3/uL Normal 4.00-10.60 [facility] Comment on above: Performed By: #### 4 1533, 20968, 91759, 43201, 14023, 95496 #### [facility] [address] CHEST AND LATERALon 04-07-20 CHEST AND LATERAL [facility] Department of Radiology [address] [place] [id number] ===== Patient Name: EVANS FORTE : [...] change. Electronically signed: Rehan Zaragoza. Transcribed by: [email or web address], User Resident: Electronically Signed by: REHAN ZARAGOZA @ 04/08/2022 07:43 AM Normal [facility] CMV IGG BLOODon 04-07-2022 CMV IGG 0.00 Normal [facility] Comment on above: Order Comment: only males 40 and older Result Comment: NORM AL RANGES: < OR = 0.9O NEGATIVE ; NO DETECTABLE IgG ANTIBODY TO CMV 0.91 - 1.09 EQUIVOCAL; REPEAT TESTING SUGGESTED > OR = 1.10 POSITIVE ; INDICATES PRESENCE OF DETECTABLE IgG ANTIBODY TO CMV Performed By: #### 4 1533, 28298, 71265, 58344, 02208, 61254 #### [facility] [address] COMP METABOLIC PANELon 04-07 Albumin [Mass/Vol] 4.2 g/dL Normal 3.5-5.7 [facility] Comment on above: Performed By: #### 0 0121, 18656, 97725 #### [facility] [address] [place] [address], [place] ALKALINE PHOSPH 72 IU/L Normal 34-104 [facility] Comment on above: Performed By: #### 0 0121, 03435, 70347 #### [facility] [address] [place] [address], [place] ALT [Catalytic activity/Vol] 18 U/L Normal 7-52 [facility] Comment on above: Performed By: #### 0 0121, 45850, 73978 #### [facility] [address] [place] [address], [place] AST [Catalytic activity/Vol] 11 U/L Low 13-39 [facility] Comment on above: Performed By: #### 0 0121, 09693, 09400 #### [facility] [address] [place] [address], [place] Bilirubin [Mass/Vol] 0.3 mg/dL Normal 0.3-1.0 [facility] Comment on above: Performed By: #### 0 0121, 10675, 67897 #### [facility] [address] [place] [address], [place] Calcium [Mass/Vol] 10.4 mg/dL High 8.6-10.3 [facility] Comment on above: Performed By: #### 0 0121, 11202, 39450 #### [facility] [address] [place] [address], [place] Chloride [Moles/Vol] 106 mmol/L Normal 98-107 [facility] Comment on above: Performed By: #### 0 0121, 73416, 61442 #### [facility] [address] [place] [address], [place] CO2 [Moles/Vol] 24 mmol/L Normal 21-31 [facility] Comment on above: Performed By: #### 0 0121, 70411, 63858 #### [facility] [address] [place] [address], [facility] Creatinine [Mass/Vol] 5.07 mg/dL High 0.70-1.30 [facility] Comment on above: Performed By: #### 0 0121, 41563, 53838 #### [facility] [address] [place] [address], [facility] EGFR 13 ml/min/1.73sq m Abnormal >60 [facility] Comment on above: Result Comment: [facility]'s estimated glomerular filtration rate (eGFR) will [...] of individuals. Performed By: #### 0 0121, 88899, 43292 #### [facility] [address] [facility] [place] [address], [facility] Glucose [Mass/Vol] 106 mg/dL High 70-100 [facility] Comment on above: Performed By: #### 0 012, 39281, 01557 #### [facility] [address] [facility] [place] [address], [facility] Potassium [Moles/Vol] 4.6 mmol/L Normal 3.5-5.1 [facility] Comment on above: Performed By: #### 0 0121, 17928, 55853 #### [facility] [address] [place] [place] [address], [facility] Protein [Mass/Vol] 7.2 g/dL Normal 6.0-8.3 [facility] Comment on above: Performed By: #### 0 0121, 27956, 00024 #### [facility] [address] [place] [address], [facility] Sodium [Moles/Vol] 138 mmol/L Normal 136-145 [facility] Comment on above: Performed By: #### 0 0121, 25886, 21201 #### [facility] [address] [place] [address], [facility] Urea nitrogen [Mass/Vol] 59 mg/dL High 7-25 [facility] Comment on above: Performed By: #### 0 0121, 02303, 14993 #### [facility] [address] [place] [address], [facility] CREATININE URINE RANDOMon Creatinine (U) [Mass/Vol] 79.0 mg/dL Normal [facility] Comment on above: Result Comment: Ther e are no established reference values for random urine specimens Performed By: #### 4 1533, 52332, 23411, 63542, 44072, 11138 #### [facility] [address] [place] [address], [facility] CT RENAL RECIPIENT ABDOMEN A ND PEVLIS WO CONTRASTon 04-07-2022 CT RENAL RECIPIENT ABDOMEN AND PEVLIS WO CONTRAST [facility] Department of Radiology [address] [place] [id number] ===== Patient Name: EVANS FORTE : 1970 Sex: M Age: Race: White Pt. Location: Patient Status: D Ordered Date: 04/07/2022 1:10:00 PM Completed Date: 04/07/2022 01:22 PM Requesting Provider: BERTIN RUSSELL Attending Provider: BERTIN RUSSELL Report Copy To: IDANIA RICKETTS Signs & Symptoms: Z01.818 Encounter for other preprocedural examination I10 History: [place] Comments: Pre-kidney transplant work-up. Please evaluate vessels [...] arteries. Electronically signed: SAYDA GRACE. Transcribed by: [email or web address], User Resident: Electronically Signed by: SAYDA GRACE @ 04/09/2022 10:03 AM Normal [facility] Comment on above: Order Comment: Pre-k idney transplant work-up. Please evaluate vessels for kidney transplant. , Height (ft.): 6 ft 0 in , Weight (lbs): 304 DIRECT BILIon 04-07-2022 Bilirubin.direct [Mass/Vol] 0.0 mg/dL Normal 0.0-0.2 [facility] Comment on above: Performed By: #### 0 0121, 69827, 87572 #### [facility] [address] [place] [address], [facility] ELLY LORENZO VIRUS ABon 08- EB VCA IGG 3.86 Normal [facility] Comment on above: Order Comment: only males 40 and older Result Comment: NORM AL RANGES: < OR = 0.9O NEGATIVE ; NO DETECTABLE IgG ANTIBODY TO EBV-VCA 0.91 - 1.09 EQUIVOCAL; REPEAT TESTING SUGGESTED > OR = 1.10 POSITIVE ; INDICATES PRESENCE OF DETECTABLE IgG ANTIBODY TO EBV Performed By: #### 4 1533, 03944, 06881, 46516, 30605, 04429 #### [facility] [address] [place] [address], [facility] EB VCA IGM 0.00 Normal [facility] Comment on above: Order Comment: only males 40 and older Result Comment: NORM AL RANGES: < OR = 0.9O NEGATIVE ; NO SIGNIFICANT LEVEL OF DETECTABLE EBV-VCA IgM AB 0.91 - 1.09 EQUIVOCAL; REPEAT TESTING SUGGESTED > OR = 1.10 POSITIVE ; SIGNIFICANT LEVEL OF DETECTABLE EBV-VCA IgM AB Performed By: #### 4 1533, 92848, 94666, 49247, 41502, 25921 #### [facility] [address] [place] [address], [facility] HEMOGLOBIN A1Con 04-07-2022 Glucose [Moles/Vol] 174 mmol/L Normal [facility] Comment on above: Performed By: #### 4 1533, 41293, 23675, 44916, 79799, 72618 #### [facility] [address] [place] [address], [facility] HbA1c (Bld) [Mass fraction] 7.7 % High 4.0-6.0 [facility] Comment on above: Performed By: #### 4 1533, 67244, 14166, 10320, 67937, 02327 #### [facility] [address] [place] [address], [facility] HEPATITIS A ANTIBODY IGMon 0 04-07-2022 HEP A AB IGM Non-Reactive Normal NONREACTIVE [facility] Comment on above: Performed By: #### 4 1533, 34049, 48547, 61737, 06327, 76355 #### [facility] [address] [place] [address], [facility] HEPATITIS B CORE ANTIBODYon 04-07-2022 HEP B CORE AB Non-Reactive Normal NONREACTIVE [facility] Comment on above: Performed By: #### 4 1533, 18247, 13143, 02335, 46985, 74476 #### [facility] [address] HEPATITIS B SURFACE ANTIBODY QUANTon 04-07-2022 HEP B SURF AB 0.95 mIU/ml Normal [facility] Comment on above: Result Comment: INTE RPRETATION: NONREACTIVE<8.00 mIU/mL INDETERMINATE8.00 - 12.00 mIU/mL REACTIVE>12 mIU/mL Performed By: #### 4 1533, 10381, 02824, 84553, 85720, 73020 #### [facility] [address] [place] [address], [facility] HEPATITIS B SURFACE ANTIGEN QUALon 04-07-2022 HEP B SURF AG QUAL Non-Reactive Normal NONREACTIVE [facility] Comment on above: Performed By: #### 4 1533, 32374, 02370, 54751, 18227, 05363 #### [facility] [address] [place] [address], [facility] HEPATITIS C ANTIBODYon 04-07 ANTI-HCV Non-Reactive Normal NONREACTIVE [facility] Comment on above: Performed By: #### 4 1533, 23560, 04026, 13307, 94281, 32206 #### [facility] [address] [place] [address], [facility] HIV1 AND 2 COMBO 4Gon 2021 HIV COMBO Negative Normal NEGATIVE [facility] Comment on above: Performed By: #### 3 0625 #### [facility] [address] [place] [address], [facility] LIPID PROFILEon 04-07-2022 Cholesterol [Mass/Vol] 174 mg/dL Normal 120-200 Th e [facility] Comment on above: Result Comment: CHOL ESTEROL REFERENCE RANGE: 20 YEARS AND OLDER CARDIOVASCULAR RISK Less than 200 mg/dl Low Risk 200 to 239 mg/dl Borderline Risk 240 mg/dl and greater High Risk Performed By: #### 0 0121, 19804, 88966 #### [facility] [address] [facility] [place] [address], [facility] Cholesterol in HDL [Mass/Vol] 37 mg/dL Normal 23-92 [facility] Comment on above: Result Comment: Slig ht variation in normal range could be due to gender and/or age. HDL CHOLESTEROL REFERENCE RANGE: 20 years and older Cardiovascular Risk > or =60 mg/dL Desirable 40 TO 59 mg/dL Low Risk <40 mg/dL High Risk Performed By: #### 0 0121, 08712, 40883 #### [facility] [address] [place] [address], [facility] Cholesterol in LDL [Mass/Vol] 84 mg/dL Normal 0-130 [facility] Comment on above: Result Comment: LDL IS A CALCULATION LDL IS ONLY VALID IF THE TRIG IS LESS THAN 400. Performed By: #### 0 0121, 39937, 49063 #### [facility] [address] [place] [place] [address], [facility] Cholesterol.total/Chol esterol in HDL [Mass ratio] 4.7 {ratio} High .0-4.5 [facility] Comment on above: Performed By: #### 0 0121, 96667, 94868 #### [facility] [address] [place] [address], [facility] NON-HDL CHOLESTEROL 137 mg/dL Normal [facility] Comment on above: Performed By: #### 0 0121, 97158, 86499 #### [facility] [address] [place] [address], [facility] Triglyceride [Mass/Vol] 265 mg/dL High 40-149 [facility] Comment on above: Result Comment: TRIG LYCERIDE REFERENCE RANGE: 20 YEARS AND OLDER CARDIOVASCULAR RISK LESS THAN 150 mg/dl LOW RISK 150 TO 199 mg/dl BORDERLINE RISK 200 mg/dl AND GREATER HIGH RISK Performed By: #### 0 0121, 19210, 27825 #### [facility] [address] [place] [address], [facility] VLDL CHOL 53 mg/dL High 0-40 [facility] Comment on above: Performed By: #### 0 0121, 75800, 68689 #### [facility] [address] MUMPS IGG BLDon 04-07-2022 MUMPS IGG 1.24 Normal [facility] Comment on above: Result Comment: NORM AL RANGES: < OR = 0.9O NEGATIVE ; NO DETECTABLE IgG ANTIBODY TO MUMPS 0.91 - 1.09 EQUIVOCAL; REPEAT TESTING SUGGESTED > OR = 1.10 POSITIVE ; INDICATES PRESENCE OF DETECTABLE IgG ANTIBODY TO MUMPS Performed By: #### 4 1533, 86036, 63124, 60599, 42642, 32027 #### [facility] [address] [facility] [place] [address], [facility] RUBELLAon 04-07-2022 RUBELLA 0.81 Normal [facility] Comment on above: Result Comment: 1.09 RAN IN TRIPLICATE NORMAL RANGES: < OR = 0.9O NEGATIVE ; NO DETECTABLE IgG ANTIBODY TO RUBELLA 0.91 - 1.09 EQUIVOCAL; REPEAT TESTING SUGGESTED > OR = 1.10 POSITIVE ; INDICATES PRESENCE OF DETECTABLE IgG ANTIBODY TO RUBELLA VIRUS Performed By: #### 4 1533, 74099, 36089, 04123, 43960, 77475 #### [facility] [address] RUBEOLA MEASLES IGGon 2021 RUBEO IGG 0.57 Normal [facility] Comment on above: Result Comment: NORM AL RANGES: < OR = 0.9O NEGATIVE ; NO DETECTABLE IgG ANTIBODY TO RUBEOLA 0.91 - 1.09 EQUIVOCAL; REPEAT TESTING SUGGESTED > OR = 1.10 POSITIVE ; INDICATES PRESENCE OF DETECTABLE IgG ANTIBODY TO RUBEOLA Performed By: #### 4 1533, 67502, 37200, 94994, 37913, 25606 #### [facility] [address] SINGLE ANTIGEN CLASS 1on METHOD Class I Single Antigen Normal Th e [facility] Comment on above: Order Comment: Some [...] to frequency. Performed By: #### 4 1533, 84520, 16253, 07029, 58675, 54656 #### [facility] [address] SINGLE ANTIGEN CLASS 2on COMMENTS Normal [facility] Comment on above: Order Comment: Some [...] watch list. Performed By: #### 4 1533, 44771, 00615, 78779, 80257, 60187 #### [facility] [address] [place] [address], [facility] Result Comment: Clas s I Antigen Microbeads Potential specificites added to the watch list. CPRA 0 Normal [facility] Comment on above: Order Comment: Some [...] to frequency. Performed By: #### 4 1533, 67708, 08487, 63420, 91139, 74264 #### [facility] [address] [facility] [address], [facility] METHOD Class II Single Antigen Normal T he [facility] Comment on above: Order Comment: Some [...] to frequency. Performed By: #### 4 1533, 48024, 84247, 22565, 10341, 31751 #### [facility] [address] [place] [address], [facility] SIGNED BY Normal [facility] Comment on above: Order Comment: Some [...] to frequency. Result Comment: Delano Nuno, MS,CHT(RAJESH),MT(ASCP) Product Specialist, Transplant Immunology Performed By: #### 4 1533, 81912, 02629, 50348, 33306, 17771 #### [facility] [address] [place] [address], [facility] T PROT UR Ryne 04-07-2022 U TOTAL PROTEIN 336.4 mg/dL Normal [facility] Comment on above: Result Comment: Ther e are no established reference values for random urine specimens Performed By: #### 4 1533, 34815, 13198, 00175, 06442, 11771 #### [facility] [address] [place] [address], [facility] TB QUANTIFERON PLUSon 2021 MITOGEN MINUS NIL >10.00 Normal [facility] Comment on above: Performed By: #### 4 1533, 27151, 60167, 65357, 73225, 12410 #### [facility] [address] [place] [address], [facility] NIL 0.02 IU/mL Normal [facility] Comment on above: Performed By: #### 4 1533, 69057, 76177, 62023, 23691, 20737 #### [facility] [address] [facility] [place] [address], [facility] TB QUANTIFERON Negative Normal NEGATIVE [facility] Comment on above: Result Comment: Shawn tiferon TB Gold Interpretation (IU/mL): NEGATIVE: M. tuberculosis infection not likely. Nil: <=8.0 TB1 Antigen minus Nil ([id number]): <0.35 OR >=0.35; and <25% of Nil value. TB2 Antigen minus Nil (ST5OP-SKO): <0.35 OR >=0.35; and <25% of Nil [...] LTBI (https://www.cdc.gov/tb/publications/guidlines/default.htm Performed By: #### 4 1533, 86977, 77602, 08184, 38594, 73511 #### [facility] [address] [place] [address], [facility] TB1 AG 0.05 IU/mL Normal [facility] Comment on above: Performed By: #### 4 1533, 83428, 04777, 10334, 25206, 09865 #### [facility] [address] [facility] [address], [facility] TB1 AG MINUS NIL 0.03 IU/mL Normal [facility] Comment on above: Performed By: #### 4 1533, 33066, 18187, 18712, 47993, 57921 #### [facility] [address] [place] [address], [facility] TB2 AG 0.04 IU/mL Normal [facility] Comment on above: Performed By: #### 4 1533, 67230, 50249, 26526, 28254, 70072 #### [facility] [address] [place] [place] [address], [facility] TB2 AG MINUS NIL 0.02 IU/mL Normal [facility] Comment on above: Performed By: #### 4 1533, 03305, 39000, 19128, 73596, 74424 #### [facility] [address] [facility] [place] [address], [place] TESTOSTERONE, FREE+SHBG+TOTA L ILon 04-07-2022 [place] Normal [facility] Comment on above: Result Comment: Test Performed by [employer] [address] [place] [address] 28416 - Released 04/08/2022 09:48 SEX HORM BIND GLOB 23 nmol/L Normal 11-80 [facility] Testosterone [Mass/Vol] 178 ng/dL Low 220-1000 [facility] TESTOSTERONE, FREE 40.8 pg/mL Low 47-244 [facility] Comment on above: Result Comment: The concentration of free testosterone is derived from a mathematical expression based on the constant for the binding of testosterone to albumin and/or sex hormone binding globulin. UA,MICROSCOPIC REQUIREDon Appearance (U) CLEAR Normal CLEAR [facility] Comment on above: Performed By: #### 4 1533, 98749, 85949, 43419, 29036, 74837 #### [facility] [address] [place] [address], [facility] Bilirubin Ql (U) Negative Normal NEGATIVE [facility] Comment on above: Performed By: #### 4 1533, 84470, 39544, 13365, 02629, 31640 #### [facility] [address] [place] [address], [facility] Color (U) YELLOW Normal YELLOW [facility] Comment on above: Performed By: #### 4 1533, 95648, 25196, 53895, 21913, 50029 #### [facility] [address] [place] [address], [facility] EPIS OCC Normal FEW,OCC,NONE SEEN [facility] Comment on above: Performed By: #### 4 1533, 36463, 32571, 07958, 00543, 08904 #### [facility] [address] [place] [address], [place] Glucose Ql (U) 250 mg/dL Abnormal NEGATIVE [facility] Comment on above: Performed By: #### 4 1533, 83066, 66842, 98880, 03945, 27666 #### [facility] [address] [place] [address], [facility] Hemoglobin Ql (U) TRACE Abnormal NEGATIVE [facility] Comment on above: Performed By: #### 4 1533, 90245, 29159, 32000, 60036, 96234 #### [facility] [address] [facility] [address], [facility] KETONE Negative Normal NEGATIVE [facility] Comment on above: Performed By: #### 4 1533, 41984, 19687, 46554, 11189, 10733 #### [facility] [address] [place] [address], [facility] LEUK AGNES Negative Normal NEGATIVE [facility] Comment on above: Performed By: #### 4 1533, 06457, 52565, 77704, 78505, 41439 #### [facility] [address] [place] [place] [address], [facility] Nitrite Ql (U) Negative Normal NEGATIVE [facility] Comment on above: Performed By: #### 4 1533, 27832, 94222, 51481, 03068, 49646 #### [facility] [address] [facility] [place] [place] [address], [facility] pH (U) 5.5 [pH] Normal 5.0-8.0 [facility] Comment on above: Performed By: #### 4 1533, 70343, 72813, 14088, 51904, 25288 #### [facility] [address] [facility] [place] [place] [address], [facility] Protein Ql (U) 100 Abnormal NEGATIVE [facility] Comment on above: Performed By: #### 4 1533, 26003, 22586, 75419, 72693, 42962 #### [facility] [address] [facility] [place] [place] [address], [facility] RBC 0-2 Abnormal NONE SEEN [facility] Comment on above: Performed By: #### 4 1533, 45713, 23479, 87819, 16123, 75220 #### [facility] [address] [place] [place] [address], [facility] SPEC GRAV 1.020 Normal 1.015-1.020 [facility] Comment on above: Performed By: #### 4 1533, 51117, 89832, 40292, 60782, 67916 #### [facility] [address] [place] [address], [facility] WBC UA 0-2 Abnormal NONE SEEN [facility] Comment on above: Performed By: #### 4 1533, 31634, 81322, 72433, 07086, 68056 #### [facility] [address] VARICELLA ZOSTER IGGon 04-07 VARICELLA IGG 1.40 Normal [facility] Comment on above: Result Comment: NORM AL RANGES: < OR = 0.9O NEGATIVE ; NO DETECTABLE IgG ANTIBODY TO VARICELLA-ZOSTER VIRUS 0.91 - 1.09 EQUIVOCAL; REPEAT TESTING SUGGESTED > OR = 1.10 POSITIVE ; INDICATES PRESENCE OF DETECTABLE IgG ANTIBODY TO VARICELLA-ZOSTER VIRUS Performed By: #### 4 1533, 31336, 69772, 44124, 73163, 04658 #### [facility] [address] [facility]. [address] Albumin [Mass/volume] in Ser um or PlasmaOrdered By: Ada Uriostegui on 02-20-2022 Albumin [Mass/Vol] 3.4 g/dL 3.2-5.5 [facility] Automated erythrocytes count in urine sediment (number/area)Ordered By: Ada Uriostegui on 02-20-2022 RBC Auto (Urine sed) [#/Area] 1-2 [HPF] 0-4 [facility] Automated leukocytes count i n urine sediment (number/area)Ordered By: Ada Uriostegui on 02-20-2022 WBC Auto (Urine sed) [#/Area] 0-1 [HPF] 0-4 [facility] Bilirubin Test strip Ql (U)O rdered By: Ada Uriostegui on 02-20-2022 Bilirubin Ql (U) Negative Negative [facility] Blood hemoglobin measurement (mass/volume)Ordered By: Ada Uriostegui on 02-20-2022 Hemoglobin (Bld) [Mass/Vol] 11.1 g/dL 13.0-17.[address] [facility] [address] biopsyOrdered By: Jonathan christensen on 02-20-2022 Transferrin [Mass/Vol] 284 mg/dL 180-380 [facility] Color Auto (U)Ordered By: Ab akhil Uriostegui on 02-20-2022 Color (U) Yellow Yellow [facility] Creatinine [Mass/volume] in UrineOrdered By: Ada Uriostegui on 02-20-2022 Creatinine (U) [Mass/Vol] 73.3 mg/dL [facility] Comment on above: No reference range e stablished Creatinine and Glomerular fi ltration rate.predicted panel (S/P/Bld)Ordered By: Ada Uriostegui on 02-20-2022 Creatinine [Mass/Vol] 4.65 mg/dL 0.64-1.27 [facility] Erythrocyte distribution wid th Auto (RBC) [Ratio]Ordered By: Ada Uriostegui on 02-20-2022 Erythrocyte distribution width (RBC) [Ratio] 13.9 % 12.0-14.8 [facility] Estimated glomerular filtrat ion rate (GFR) non- AmericanOrdered By: Ada Uriostegui on 02-20-2022 GFR/1.73 sq M.predicted among non-blacks MDRD (S/P/Bld) [Vol rate/Area] 13 mL/Min [facility] Ferritin [Mass/volume] in Se rum or PlasmaOrdered By: Ada Uriostegui on 02-20-2022 Ferritin [Mass/Vol] 471.8 ng/mL 23.9-336.2 [facility] Hematocrit Auto (Bld) [Volum e fraction]Ordered By: Ada Uriostegui on 02-20-2022 Hematocrit (Bld) [Volume fraction] 32.9 % 38.8-50.0 [facility] [Mass/volume] in Serum or PlasmaOrdered By: Ada Uriostegui on 02-20-2022 Iron [Mass/Vol] 74 ug/dL 40-160 [facility] Iron binding capacity [Mass/ volume] in Serum or PlasmaOrdered By: Ada Uriostegui on 02-20-2022 Iron binding capacity [Mass/Vol] 398 ug/dL 255-450 [facility] Iron saturation [Mass Fracti on] in Serum or PlasmaOrdered By: Ada Uriostegui on 02-20-2022 Iron saturation [Mass fraction] 18.0 % 20-50 [facility] Ketones Auto test strip (U) [Mass/Vol]Ordered By: Ada Uriostegui on 02-20-2022 Ketones (U) [Mass/Vol] Negative Negative Fi [facility] - Chemistry and C hemistry - challengeOrdered By: Ada Uriostegui on 02-20-2022 Magnesium [Mass/Vol] 1.9 mg/dL 1.6-2.6 [facility] - UrinalysisOrder ed By: Ada Uriostegui on 02-20-2022 Hyaline casts LM Ql (Urine sed) 0-8 [LPF] 0-8 [facility] MCH Auto (RBC) [Entitic mass ]Ordered By: Ada Uriostegui on 02-20-2022 MCH (RBC) [Entitic mass] 30.5 pg 27.5-35.2 [facility] MCHC Auto (RBC) [Mass/Vol]Or dered By: Ada Uriostegui on 02-20-2022 MCHC (RBC) [Mass/Vol] 33.8 g/dL 32.5-35.6 [facility] MCV Auto (RBC) [Entitic vol] Ordered By: Ada Uriostegui on 02-20-2022 MCV (RBC) [Entitic vol] 90.2 fL 83.5-101 [facility] Nitrite Test strip Ql (U)Ord ered By: Ada Uriostegui on 02-20-2022 Nitrite Ql (U) Negative Negative [facility] No Panel InformationOrdered By: Ada Uriostegui on 02-20-2022 25-Hydroxy Vitamin D Total 13.8 ng/mL 30-100 [facility] Comment on above: VITAMIN D STATUS 25( [place])VITAMIN D RANGE (ng/mL) Deficient <20 Insufficient 20 to <30 Sufficient 30 to 100 Reference: Sophy MF,Glendy NC, Nitin RAMOS, et al. Evaluation,treatment, and prevention of vitamin D deficiency; an Endocrine Society clinical practice guideline. JCEM. 2010; 96(7):1911-30. Estimated GFR () 16 mL/Min [facility] Comment on above: GFR estimated refere nce range: According to KDOQI guidelines, <60 ml/min/1.73m2 is sufficient to diagnose a patient with chronic kidney disease. Pharmacy Creatinine Clearance (Chem N/A [facility] Phosphate [Mass/volume] in S james or PlasmaOrdered By: Ada Uriostegui on 02-20-2022 Phosphate [Mass/Vol] 4.2 mg/dL 2.5-4.6 [facility] Platelet mean volume Auto (B ld) [Entitic vol]Ordered By: Ada Uriostegui on 02-20-2022 Platelet mean volume (Bld) [Entitic vol] 7.4 fL 6.6-10.1 [facility] Platelets Auto (Bld) [#/Vol] Ordered By: Ada Uriostegui on 02-20-2022 Platelets (Bld) [#/Vol] 497 10*3/uL 150-450 [facility] Protein Auto test strip (U) [Mass/Vol]Ordered By: Ada Uriostegui on 02-20-2022 Protein (U) [Mass/Vol] 300 mg/dL Negative [facility] Protein [Mass/volume] in Uri neOrdered By: Ada Uriostegui on 02-20-2022 Protein (U) [Mass/Vol] 303 mg/dL 0-9 [facility] RBC Auto (Bld) [#/Vol]Ordere d By: Ada Uriostegui on 02-20-2022 RBC (Bld) [#/Vol] 3.64 10*6/uL 3.90-5.[address] [facility] Serum or plasma calcium shante urement (mass/volume)Ordered By: Ada Uriostegui on 02-20-2022 Calcium [Mass/Vol] 8.8 mg/dL 8.2-10.2 [facility] Serum or plasma chloride alber surement (moles/volume)Ordered By: Ada Uriostegui on 02-20-2022 Chloride [Moles/Vol] 106 mmol/L 95-114 [facility] Serum or plasma glucose shante urement (mass/volume)Ordered By: Ada Uriostegui on 02-20-2022 Glucose [Mass/Vol] 65 mg/dL 70-100 [facility] Comment on above: ADA recommended refe rence range Random Glucose Reference Range is dependent on time and content of last meal. Glucose of more than 200 mg/dL in a nonstressed, ambulatory subject supports the diagnosis of Diabetes Mellitus. Serum or plasma intact parat hyroid hormone measurement (mass/volume)Ordered By: Ada Uriostegui on 02-20-2022 Parathyrin.intact [Mass/Vol] 251.7 pg/mL [facility] Serum or plasma potassium me asurement (moles/volume)Ordered By: Ada Uriostegui on 02-20-2022 Potassium [Moles/Vol] 4.7 mmol/L 3.5-5.1 [facility] Serum or plasma sodium measu rement (moles/volume)Ordered By: Ada Uriostegui on 02-20-2022 Sodium [Moles/Vol] 141 mmol/L 136-146 [facility] Serum or plasma total carbon dioxide measurement (moles/volume)Ordered By: Ada Uriostegui on 02-20-2022 CO2 [Moles/Vol] 24.3 mmol/L 22.0-30.0 [facility] Serum or plasma urea nitroge n measurement (mass/volume)Ordered By: Ada Uriostegui on 02-20-2022 Urea nitrogen [Mass/Vol] 51 mg/dL 05-29 [facility] Serum or plasma uric acid me asurement (mass/volume)Ordered By: Ada Uriostegui on 02-20-2022 Urate [Mass/Vol] 6.6 mg/dL 2.6-7.2 [facility] Specific gravity Auto test s trip (U) [Rel density]Ordered By: Ada Uriostegui on 02-20-2022 Specific gravity (U) [Rel density] 1.013 1.001-1.030 [facility] Squamous epithelial cells de tection in urine sediment by light microscopyOrdered By: Ada Uriostegui on 02-20-2022 Epithelial cells.squamous LM Ql (Urine sed) 0-1 [HPF] 0-2 [facility] Urine bacteria detection by automated methodOrdered By: Ada Uriostegui on 02-20-2022 Bacteria Auto Ql (U) None seen None Seen [facility] Urine clarity by refractomet ry automatedOrdered By: Ada Uriostegui on 02-20-2022 Clarity Refractometry automated (U) Clear Clear [facility] Urine glucose measurement by automated test strip (mass/volume)Ordered By: Ada Uriostegui on 02-20-2022 Glucose Auto test strip (U) [Mass/Vol] Normal mg/dL Normal [facility] Urine hemoglobin detection b y automated test stripOrdered By: Ada Uriostegui on 02-20-2022 Hemoglobin Auto test strip Ql (U) Trace Negative [facility] Urine leukocyte esterase det ection by automated test stripOrdered By: Ada Uriostegui on 02-20-2022 Leukocyte esterase Auto test strip Ql (U) Negative Negative [facility] Urine protein/creatinine rat ioOrdered By: Ada Uriostegui on 02-20-2022 Protein/Creatinine (U) [Ratio] 4134 mg/g{Cre} 0-200 [facility] Urobilinogen Auto test strip (U) [Mass/Vol]Ordered By: Ada Uriostegui on 02-20-2022 Urobilinogen (U) [Mass/Vol] Normal mg/dL Normal [facility] WBC Auto (Bld) [#/Vol]Ordere d By: Ada Uriostegui on 02-20-2022 WBC (Bld) [#/Vol] 9.6 10*3/uL 4.1-10.5 [facility] pH Auto test strip (U)Ordere d By: Ada Uriostegui on 02-20-2022 pH (U) 5.5 [pH] 5.0-9.0 [facility] C-Reactive Proteinon 022 CRP IV 3.4 mg/dl Normal <5.0 [facility] [employer] Comment on above: Performed By: #### C BCAD, CMP, ESR, CRP #### [facility] [address] [place], [place] [id number] Complete Blood Count with Au to Diffon 10-23-2021 Basophils (Bld) [#/Vol] 0.08 10*3/uL Normal 0.00-0.20 [facility] Comment on above: Performed By: #### C BCAD, CMP, ESR, CRP #### [facility] [address] [place], [place] [id number] Basophils/100 WBC (Bld) 0.4 % Normal [facility] Comment on above: Performed By: #### C BCAD, CMP, ESR, CRP #### [facility] [address] [place], [place] [id number] Eosinophils (Bld) [#/Vol] 0.34 10*3/uL Normal 0.02-0.50 [facility] Comment on above: Performed By: #### C BCAD, CMP, ESR, CRP #### [facility] [address] [place], [place] [id number] Eosinophils/100 WBC (Bld) 1.8 % Normal [facility] Comment on above: Performed By: #### C BCAD, CMP, ESR, CRP #### [facility] [address] [place], [place] [id number] Erythrocyte distribution width (RBC) [Ratio] 12.9 % Normal 11.0-15.0 [facility] Comment on above: Performed By: #### C BCAD, CMP, ESR, CRP #### [facility] [address] [place], [place] [id number] Hematocrit (Bld) [Volume fraction] 38.4 % Low 38.5-50.0 [facility] Comment on above: Performed By: #### C BCAD, CMP, ESR, CRP #### [facility] [address] [place], [place] [id number] Hemoglobin (Bld) [Mass/Vol] 12.2 g/dL Low 13.0-17.1 [facility] Comment on above: Performed By: #### C BCAD, CMP, ESR, CRP #### [facility] [address] [place], [place] [id number] Lymphocytes (Bld) [#/Vol] 1.9 10*3/uL Normal 0.9-3.9 [facility] Comment on above: Performed By: #### C BCAD, CMP, ESR, CRP #### [facility] [address] [place], [place] [id number] Lymphocytes/100 WBC (Bld) 10.1 % Normal [facility] Comment on above: Performed By: #### C BCAD, CMP, ESR, CRP #### [facility] [address] [place], [place] [id number] MCH (RBC) [Entitic mass] 28.8 pg Normal 27.0-33.0 [facility] Comment on above: Performed By: #### C BCAD, CMP, ESR, CRP #### [facility] [address] [place], [place] [id number] MCHC (RBC) [Mass/Vol] 31.8 g/dL Low 32.0-36.0 [facility] Comment on above: Performed By: #### C BCAD, CMP, ESR, CRP #### [facility] [address] [place], [place] [id number] MCV (RBC) [Entitic vol] 91 fL Normal 80-100 [facility] Comment on above: Performed By: #### C BCAD, CMP, ESR, CRP #### [facility] [address] [place], [place] [id number] Monocytes (Bld) [#/Vol] 1.2 10*3/uL High 0.2-0.9 [facility] Comment on above: Performed By: #### C BCAD, CMP, ESR, CRP #### [facility] [address] [place], [place] [id number] Monocytes/100 WBC (Bld) 6.3 % Normal [facility] Comment on above: Performed By: #### C BCAD, CMP, ESR, CRP #### [facility] [address] [place], [place] [id number] Neutrophils (Bld) [#/Vol] 15.0 10*3/uL High 1.5-7.8 [facility] Comment on above: Performed By: #### C BCAD, CMP, ESR, CRP #### [facility] [address] [place], [place] [id number] Neutrophils/100 WBC (Bld) 80.6 % Normal [facility] Comment on above: Performed By: #### C BCAD, CMP, ESR, CRP #### [facility] [address] [place], [place] [id number] Platelet mean volume (Bld) [Entitic vol] 8.80 fL Normal 7.50-12.50 [facility] Comment on above: Performed By: #### C BCAD, CMP, ESR, CRP #### [facility] [address] [place], [place] [id number] Platelets (Bld) [#/Vol] 586 10*3/uL High 140-400 [facility] Comment on above: Performed By: #### C BCAD, CMP, ESR, CRP #### [facility] [address] [place], [place] [id number] RBC (Bld) [#/Vol] 4.23 10*6/uL Normal 4.20-5.80 [facility] Comment on above: Performed By: #### C BCAD, CMP, ESR, CRP #### [facility] [address] [place], [place] [id number] RDW-SD 42.6 fL Normal 37.0-50.0 [facility] Comment on above: Performed By: #### C BCAD, CMP, ESR, CRP #### [facility] [address] [place], [place] [id number] WBC (Bld) [#/Vol] 18.7 10*3/uL High 3.8-11.0 [facility] Comment on above: Performed By: #### C BCAD, CMP, ESR, CRP #### [facility] [address] [place], [place] [id number] Comprehensive Metabolic Pane [facility] 10-23-2021 Albumin [Mass/Vol] 4.5 g/dL Normal 3.6-5.1 [facility] Comment on above: Performed By: #### C BCAD, CMP, ESR, CRP #### [facility] [address] [place], [place] [id number] Albumin/Globulin [Mass ratio] 1.3 {ratio} Normal 1.0-2.5 [facility] Comment on above: Performed By: #### C BCAD, CMP, ESR, CRP #### [facility] [address] [place], [place] [id number] ALP [Catalytic activity/Vol] 87 U/L Normal 40-129 [facility] Comment on above: Performed By: #### C BCAD, CMP, ESR, CRP #### [facility] [address] [place], [place] [id number] ALT [Catalytic activity/Vol] 23 U/L Normal 9-46 [facility] Comment on above: Result Comment: 08/06 Female reference range changed. Performed By: #### C BCAD, CMP, ESR, CRP #### [facility] [address] [place], [place] [id number] Anion gap [Moles/Vol] 23 mmol/L High 12-20 [facility] Comment on above: Result Comment: Effe ctive 09/11/2019 reference range changed. Performed By: #### C BCAD, CMP, ESR, CRP #### [facility] [address] [place], [place] [id number] AST [Catalytic activity/Vol] 20 U/L Normal 10-40 [facility] Comment on above: Performed By: #### C BCAD, CMP, ESR, CRP #### [facility] [address] [place], [place] [id number] BUN/CREA 15 Ratio Normal 6-22 [facility] Comment on above: Performed By: #### C BCAD, CMP, ESR, CRP #### [facility] [address] [place], [place] [id number] Calcium [Mass/Vol] 9.6 mg/dL Normal 8.6-10.2 [facility] Comment on above: Performed By: #### C BCAD, CMP, ESR, CRP #### [facility] [address] [place], [place] [id number] Chloride [Moles/Vol] 102 mmol/L Normal 98-107 [facility] Comment on above: Performed By: #### C BCAD, CMP, ESR, CRP #### [facility] [address] [place], [place] [id number] CO2 [Moles/Vol] 18 mmol/L Low 20-31 [facility] Comment on above: Performed By: #### C BCAD, CMP, ESR, CRP #### [facility] [address] [place], [place] [id number] Creatinine [Mass/Vol] 4.5 mg/dL High 0.7-1.4 [facility] Comment on above: Performed By: #### C BCAD, CMP, ESR, CRP #### [facility] [address] [place], [place] [id number] eGFRAA 17 mL/min/1.73m2 Low >60 [facility] Comment on above: Performed By: #### C BCAD, CMP, ESR, CRP #### [facility] [address] [place], [place] [id number] eGFRNAA 14 mL/min/1.73m2 Low >60 [facility] [employer] Comment on above: Performed By: #### C BCAD, CMP, ESR, CRP #### [facility] [address] [place], [place] [id number] Globulin (S) [Mass/Vol] 3.5 g/dL Normal 1.9-3.7 [facility] Comment on above: Performed By: #### C BCAD, CMP, ESR, CRP #### [facility] [address] [place], [place] [id number] Glucose [Mass/Vol] 62 mg/dL Low 65-99 [facility] [employer] Comment on above: Result Comment: For FASTING Glucose --- ADA reference ranges: Normal 65-99 mg/dl Prediabetes 100-125 Diabetes >/= 126 Performed By: #### C BCAD, CMP, ESR, CRP #### [facility] [address] [place], [place] [id number] Potassium [Moles/Vol] 4.7 mmol/L Normal 3.5-5.5 [facility] Comment on above: Performed By: #### C BCAD, CMP, ESR, CRP #### [facility] [address] [place], [place] [id number] Protein [Mass/Vol] 8.0 g/dL Normal 6.1-8.1 [facility] [employer] Comment on above: Performed By: #### C BCAD, CMP, ESR, CRP #### [facility] [address] [place], [place] [id number] Sodium [Moles/Vol] 139 mmol/L Normal 135-146 [facility] [place] [employer] Comment on above: Performed By: #### C BCAD, CMP, ESR, CRP #### [facility] [address] [place], [place] [id number] TBIL <0.3 Normal [facility] Comment on above: Performed By: #### C BCAD, CMP, ESR, CRP #### [facility] [address] [place], [place] [id number] Urea nitrogen [Mass/Vol] 66 mg/dL High 7-25 [facility] [employer] Comment on above: Performed By: #### C BCAD, CMP, ESR, CRP #### [facility] [address] [place], [place] [id number] RBC Sedimentation Rateon ESR (Bld) [Velocity] 118.00 mm/h High 0.00-20.00 [facility] Comment on above: Performed By: #### C BCAD, CMP, ESR, CRP #### [facility] [address] [place], [place] [id number] CNCOon 04-02-2020 CNCO Letter Text Normal [facility] PROGRESSon 06-20-2019 PROGRESS HNO ID: [id number] Author: Dc (Rn) JACOB Mistry Service: ? Author Type: Registered Nurse Type: Progress Notes Filed: 06/20/2019 7:28 AM Note Text: On intake, patient admits to chewing tobacco. Will need to quit. New Referral Referring Physician Dr. Ada Uriostegui Organ Type kidney ESRD No. Cause: DM Dialysis Dependant? [place] of Dialysis Facility: n/a Diabetes Yes. 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 No. Facility: n/a Willing to accept blood transfusion? Yes Potential Living Donor? Yes Full transplant evaluation? Yes Nephrology Screen Required? 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 [employer] [facility] Normal [facility] Vital Signs Date Time Vital Sign Value Performing Clinician Facility 04-05-2025 09:40-0400 Body height 188 cm Kaylee JONES Work Phone: [facility] 04-05-2025 09:40-0400 Body mass index (BMI) [Ratio] 43.14 kg/m2 Kaylee Loganjeffrey PA Work Phone: [facility] 04-05-2025 09:40-0400 Body weight 152.41 kg Kaylee Loganjeffrey PA Work Phone: [facility] 04-05-2025 09:40-0400 Diastolic blood pressure 91 mm[Hg] Kaylee Loganjeffrey PA Work Phone: [facility] Comment on above: just took am meds 04-05-2025 09:40-0400 Heart rate 69 /min Kaylee Yuli PA Work Phone: [facility] 04-05-2025 09:40-0400 Respiratory rate 18 /min Kaylee Loganjeffrey PA Work Phone: [facility] 04-05-2025 09:40-0400 SaO2% (BldA) [Mass fraction] 98 % Kaylee Loganjeffrey PA Work Phone: [facility] 04-05-2025 09:40-0400 Systolic blood pressure 204 mm[Hg] Kaylee Loganjeffrey PA Work Phone: [facility] Comment on above: just took am meds 03-26-2025 12:30-0400 Diastolic blood pressure 85 mm[Hg] Idania Petznick DO Work Phone: [facility] 03-26-2025 12:30-0400 Heart rate 75 /min Idania Petznick DO Work Phone: [facility] 03-26-2025 12:30-0400 Respiratory rate 20 /min Idania Petznick DO Work Phone: [facility] 03-26-2025 12:30-0400 SaO2% (BldA) [Mass fraction] 98 % Idania Petznick DO Work Phone: [facility] 03-26-2025 12:30-0400 Systolic blood pressure 197 mm[Hg] Idania Petznick DO Work Phone: [facility] 03-26-2025 08:31-0400 Body height 187.96 cm Idania Petznick DO Work Phone: 1(577)304-083420 [address] 03-26-2025 08:31-0400 Body temperature 98 [degF] Idania Petznick DO Work Phone: 5(253)631-444520 [address] 03-26-2025 08:31-0400 Body weight 150 kg Idania Petznick DO Work Phone: 6(056)796-588120 [address] 03-11-2025 11:25-0400 Diastolic blood pressure 99 mm[Hg] Idania Petznick DO Work Phone: 2(009)624-554520 [address] 03-11-2025 11:25-0400 Heart rate 76 /min Idania Petznick DO Work Phone: 9(445)123-480620 [address] 03-11-2025 11:25-0400 Respiratory rate 20 /min Idania Petznick DO Work Phone: 1(135)865-231320 [address] 03-11-2025 11:25-0400 SaO2% (BldA) [Mass fraction] 100 % Idania Petznick DO Work Phone: [facility] 03-11-2025 11:25-0400 Systolic blood pressure 176 mm[Hg] Idania Petznick DO Work Phone: 1(812)436-412090 [place] [address] 03-11-2025 10:29-0400 Body height 187.96 cm Idania Petznick DO Work Phone: 1(012)[phone] [place] [address] 03-11-2025 10:29-0400 Body temperature 97.7 [degF] Idania Petznick DO Work Phone: 1(877)081-426590 [place] [address] 03-11-2025 10:29-0400 Body weight 145.1 kg Idania Petznick DO Work Phone: 1(409)348-160720 [address] 03-07-2025 15:50-0400 Diastolic blood pressure 86 mm[Hg] Idania Petznick DO Work Phone: [facility] 03-07-2025 15:50-0400 Heart rate 67 /min Idania Petznick DO Work Phone: [facility] 03-07-2025 15:50-0400 SaO2% (BldA) [Mass fraction] 98 % Idania Petznick DO Work Phone: [facility] 03-07-2025 15:50-0400 Systolic blood pressure 158 mm[Hg] Idania Petznick DO Work Phone: [facility] 02-13-2025 08:38-0400 Body height 187.96 cm Idania Petznick DO Work Phone: [facility] 02-13-2025 08:38-0400 Body mass index (BMI) [Ratio] 41.4 kg/m2 Idania Petznick DO Work Phone: [facility] 02-13-2025 08:38-0400 Body weight 146.51 kg Idania Petznick DO Work Phone: [facility] 02-13-2025 08:38-0400 Diastolic blood pressure 80 mm[Hg] Idania Petznick DO Work Phone: [facility] 02-13-2025 08:38-0400 Heart rate 55 /min Idania Petznick DO Work Phone: [facility] 02-13-2025 08:38-0400 SaO2% (BldA) [Mass fraction] 97 % Idania Petznick DO Work Phone: [facility] 02-13-2025 08:38-0400 Systolic blood pressure 148 mm[Hg] Idania Petznick DO Work Phone: [facility] 02-02-2025 11:42-0400 Body height 188 cm Sherley Templeton MD Work Phone: [facility] 02-02-2025 11:42-0400 Body mass index (BMI) [Ratio] 38.52 kg/m2 Sherley Templeton MD Work Phone: [employer] 02-02-2025 11:42-0400 Body weight 136.08 kg Sherley Templeton MD Work Phone: [facility] 02-02-2025 09:06-0400 Body temperature 98.01 [degF] Sherley Templeton MD Work Phone: [employer] 02-02-2025 09:06-0400 Diastolic blood pressure 75 mm[Hg] Sherley Templeton MD Work Phone: [employer] 02-02-2025 09:06-0400 Heart rate 79 /min Sherley Templeton MD Work Phone: [facility] 02-02-2025 09:06-0400 Respiratory rate 18 /min Sherley Templeton MD Work Phone: [facility] 02-02-2025 09:06-0400 SaO2% (BldA) [Mass fraction] 96 % Sherley Templeton MD Work Phone: [facility] 02-02-2025 09:06-0400 Systolic blood pressure 183 mm[Hg] Sherley Templeton MD Work Phone: [facility] 01-02-2025 00:30-0400 Diastolic blood pressure 74 mm[Hg] Idania Petznick DO Work Phone: [facility] 01-02-2025 00:30-0400 Heart rate 74 /min Idania Petznick DO Work Phone: [facility] 01-02-2025 00:30-0400 Respiratory rate 20 /min Idania Petznick DO Work Phone: [facility] 01-02-2025 00:30-0400 SaO2% (BldA) [Mass fraction] 97 % Idania Petznick DO Work Phone: [facility] 01-02-2025 00:30-0400 Systolic blood pressure 157 mm[Hg] Idania Petznick DO Work Phone: [facility] 01-01-2025 21:07-0400 Body height 187.96 cm Idania Petznick DO Work Phone: [facility] 01-01-2025 21:07-0400 Body temperature 98.7 [degF] Idania Petznick DO Work Phone: [facility] 01-01-2025 21:07-0400 Body weight 144.35 kg Idania Petznick DO Work Phone: [facility] 12-29-2024 16:23-0400 Body height 187.96 cm Idania Petznick DO Work Phone: [facility] 12-29-2024 16:23-0400 Body temperature 98 [degF] Idania Petznick DO Work Phone: 0(187)[phone] [place] [address] 12-29-2024 16:23-0400 Body weight 150 kg Idania Petznick DO Work Phone: [facility] 12-29-2024 16:23-0400 Diastolic blood pressure 93 mm[Hg] Idania Petznick DO Work Phone: [facility] 12-29-2024 16:23-0400 Heart rate 73 /min Idania Petznick DO Work Phone: [facility] 12-29-2024 16:23-0400 Respiratory rate 20 /min Idania Petznick DO Work Phone: [facility] 12-29-2024 16:23-0400 SaO2% (BldA) [Mass fraction] 97 % Idania Petznick DO Work Phone: [facility] 12-29-2024 16:23-0400 Systolic blood pressure 202 mm[Hg] Idania Petznick DO Work Phone: [facility] 12-05-2024 13:42-0400 Body height 188 cm Idania Petznick DO Work Phone: [facility] 12-05-2024 13:42-0400 Body mass index (BMI) [Ratio] 40.7 kg/m2 Idania Petznick DO Work Phone: [facility] 12-05-2024 13:42-0400 Body temperature 98.29 [degF] Idania Petznick DO Work Phone: [facility] 12-05-2024 13:42-0400 Body weight 143.79 kg Idania Petznick DO Work Phone: [facility] 12-05-2024 13:42-0400 Diastolic blood pressure 80 mm[Hg] Idania Petznick DO Work Phone: [facility] 12-05-2024 13:42-0400 Heart rate 82 /min Idania Petznick DO Work Phone: [facility] 12-05-2024 13:42-0400 SaO2% (BldA) [Mass fraction] 100 % Idania Petznick DO Work Phone: [facility] 12-05-2024 13:42-0400 Systolic blood pressure 134 mm[Hg] Idania Petznick DO Work Phone: [facility] 11-27-2024 22:43-0400 Body height 187.96 cm Idania Petznick DO Work Phone: [facility] 11-27-2024 22:43-0400 Body temperature 98.6 [degF] Idania Petznick DO Work Phone: [facility] 11-27-2024 22:43-0400 Body weight 143.7 kg Idania Petznick DO Work Phone: [facility] 11-27-2024 22:43-0400 Diastolic blood pressure 80 mm[Hg] Idania Petznick DO Work Phone: [facility] 11-27-2024 22:43-0400 Heart rate 88 /min Idania Petznick DO Work Phone: [facility] 11-27-2024 22:43-0400 Respiratory rate 16 /min Idania Petznick DO Work Phone: [facility] 11-27-2024 22:43-0400 SaO2% (BldA) [Mass fraction] 96 % Idania Petznick DO Work Phone: [facility] 11-27-2024 22:43-0400 Systolic blood pressure 156 mm[Hg] Idania Petznick DO Work Phone: [facility] 10-29-2024 17:26-0500 Diastolic blood pressure 77 mm[Hg] Idania Petznick DO Work Phone: [facility] 10-29-2024 17:26-0500 Systolic blood pressure 175 mm[Hg] Idania Petznick DO Work Phone: 6(648)106-460790 [place] [address] 10-29-2024 16:38-0500 Body height 187.96 cm Idania Petznick DO Work Phone: [facility] 10-29-2024 16:38-0500 Body temperature 98.2 [degF] Idania Petznick DO Work Phone: [facility] 10-29-2024 16:38-0500 Body weight 141.6 kg Idania Petznick DO Work Phone: [facility] 10-29-2024 16:38-0500 Heart rate 80 /min Idania Petznick DO Work Phone: [facility] 10-29-2024 16:38-0500 Respiratory rate 18 /min Idania Petznick DO Work Phone: [facility] 10-29-2024 16:38-0500 SaO2% (BldA) [Mass fraction] 98 % Idania Petznick DO Work Phone: [facility] 10-02-2024 13:39-0500 Body height 188 cm Idania Petznick DO Work Phone: [facility] 10-02-2024 13:39-0500 Body mass index (BMI) [Ratio] 39.42 kg/m2 Idania Petznick DO Work Phone: [facility] 10-02-2024 13:39-0500 Body temperature 98.4 [degF] Idania Petznick DO Work Phone: [facility] 10-02-2024 13:39-0500 Body weight 139.25 kg Idania Petznick DO Work Phone: [facility] 10-02-2024 13:39-0500 Diastolic blood pressure 64 mm[Hg] Idania Petznick DO Work Phone: [facility] 10-02-2024 13:39-0500 Heart rate 85 /min Idania Petznick DO Work Phone: [facility] 10-02-2024 13:39-0500 SaO2% (BldA) [Mass fraction] 96 % Idania Petznick DO Work Phone: [facility] 10-02-2024 13:39-0500 Systolic blood pressure 110 mm[Hg] Idania Petznick DO Work Phone: [facility] 09-19-2024 10:09-0500 Body height 188 cm Idania Petznick DO Work Phone: [facility] 09-19-2024 10:09-0500 Body mass index (BMI) [Ratio] 41.09 kg/m2 Idania Petznick DO Work Phone: [facility] 09-19-2024 10:09-0500 Body temperature 98.29 [degF] Idania Petznick DO Work Phone: [facility] 09-19-2024 10:09-0500 Body weight 145.15 kg Idania Petznick DO Work Phone: [facility] 09-19-2024 10:09-0500 Diastolic blood pressure 68 mm[Hg] Idania Petznick DO Work Phone: [facility] 09-19-2024 10:09-0500 Heart rate 78 /min Idania Petznick DO Work Phone: [facility] 09-19-2024 10:09-0500 SaO2% (BldA) [Mass fraction] 95 % Idania Petznick DO Work Phone: [facility] 09-19-2024 10:09-0500 Systolic blood pressure 122 mm[Hg] Idania Petznick DO Work Phone: [facility] 09-04-2024 13:36-0500 Body height 188 cm Idania Petznick DO Work Phone: [facility] 09-04-2024 13:36-0500 Body mass index (BMI) [Ratio] 40.06 kg/m2 Idania Petznick DO Work Phone: [facility] 09-04-2024 13:36-0500 Body temperature 98.4 [degF] Idania Petznick DO Work Phone: [facility] 09-04-2024 13:36-0500 Body weight 141.52 kg Idania Petznick DO Work Phone: [facility] 09-04-2024 13:36-0500 Diastolic blood pressure 62 mm[Hg] Idania Petznick DO Work Phone: [facility] 09-04-2024 13:36-0500 Heart rate 81 /min Idania Petznick DO Work Phone: [facility] 09-04-2024 13:36-0500 SaO2% (BldA) [Mass fraction] 95 % Idania Petznick DO Work Phone: [facility] 09-04-2024 13:36-0500 Systolic blood pressure 124 mm[Hg] Idania Petznick DO Work Phone: [facility] 08-29-2024 01:08-0500 Body temperature 98 [degF] Idania Petznick DO Work Phone: [facility] 08-29-2024 01:08-0500 Diastolic blood pressure 68 mm[Hg] Idania Petznick DO Work Phone: [facility] 08-29-2024 01:08-0500 Heart rate 90 /min Idania Petznick DO Work Phone: [facility] 08-29-2024 01:08-0500 Respiratory rate 18 /min Idania Petznick DO Work Phone: [facility] 08-29-2024 01:08-0500 SaO2% (BldA) [Mass fraction] 95 % Idania Petznick DO Work Phone: [facility] 08-29-2024 01:08-0500 Systolic blood pressure 114 mm[Hg] Idania Petznick DO Work Phone: [facility] 08-28-2024 22:37-0500 Body height 187.96 cm Idania Petznick DO Work Phone: [facility] 08-28-2024 22:37-0500 Body weight 144.6 kg Idania Petznick DO Work Phone: [facility] 08-07-2024 13:53-0500 Body height 188 cm Idania Petznick DO Work Phone: [facility] 08-07-2024 13:53-0500 Body mass index (BMI) [Ratio] 40.19 kg/m2 Idania Petznick DO Work Phone: [facility] 08-07-2024 13:53-0500 Body temperature 96.91 [degF] Idania Petznick DO Work Phone: [facility] 08-07-2024 13:53-0500 Body weight 141.98 kg Idania Petznick DO Work Phone: [facility] 08-07-2024 13:53-0500 Diastolic blood pressure 78 mm[Hg] Idania Petznick DO Work Phone: [facility] 08-07-2024 13:53-0500 Heart rate 83 /min Idania Petznick DO Work Phone: [facility] 08-07-2024 13:53-0500 SaO2% (BldA) [Mass fraction] 91 % Idania Petznick DO Work Phone: [facility] 08-07-2024 13:53-0500 Systolic blood pressure 134 mm[Hg] Idania Petznick DO Work Phone: [facility] 05-16-2024 09:17-0400 Body height 188 cm Idania Petznick DO Work Phone: [facility] 05-16-2024 09:17-0400 Body mass index (BMI) [Ratio] 40.37 kg/m2 Idania Petznick DO Work Phone: [facility] 05-16-2024 09:17-0400 Body temperature 96.91 [degF] Idania Petznick DO Work Phone: [facility] 05-16-2024 09:17-0400 Body weight 142.61 kg Idania Petznick DO Work Phone: [facility] 05-16-2024 09:17-0400 Diastolic blood pressure 62 mm[Hg] Idania Petznick DO Work Phone: [facility] 05-16-2024 09:17-0400 Heart rate 81 /min Idania Petznick DO Work Phone: [facility] 05-16-2024 09:17-0400 SaO2% (BldA) [Mass fraction] 94 % Idania Petznick DO Work Phone: [facility] 05-16-2024 09:17-0400 Systolic blood pressure 154 mm[Hg] Idania Petznick DO Work Phone: [facility] 05-15-2024 14:51-0400 Body height 187.96 cm DO Idania Petznick Work Phone: [facility] 05-15-2024 14:51-0400 Body temperature 98.5 [degF] DO Idania Petznick Work Phone: [facility] 05-15-2024 14:51-0400 Body weight 142.25 kg DO Idanai Petznick Work Phone: [facility] 05-15-2024 14:51-0400 Diastolic blood pressure 83 mm[Hg] DO Idania Petznick Work Phone: [facility] 05-15-2024 14:51-0400 Heart rate 64 /min DO Idania Petznick Work Phone: [facility] 05-15-2024 14:51-0400 Respiratory rate 21 /min DO Idania Petznick Work Phone: [facility] 05-15-2024 14:51-0400 SaO2% (BldA) [Mass fraction] 97 % DO Idania Petznick Work Phone: [facility] 05-15-2024 14:51-0400 Systolic blood pressure 183 mm[Hg] DO Idania Petznick Work Phone: 1(210)094-491390 [place] [address] 02-04-2024 12:00-0400 Diastolic blood pressure 73 mm[Hg] DO Idania Petznick Work Phone: 9(169)090-293890 [place] [address] 02-04-2024 12:00-0400 Heart rate 65 /min DO Idania Petznick Work Phone: 9(294)135-330990 [place] [address] 02-04-2024 12:00-0400 Respiratory rate 16 /min DO Idania Petznick Work Phone: 8(083)279-702790 [place] [address] 02-04-2024 12:00-0400 SaO2% (BldA) [Mass fraction] 96 % DO Idania Petznick Work Phone: [facility] 02-04-2024 12:00-0400 Systolic blood pressure 133 mm[Hg] DO Idania Petznick Work Phone: [facility] 02-04-2024 10:38-0400 Body height 187.96 cm DO Idania Petznick Work Phone: [facility] 02-04-2024 10:38-0400 Body temperature 98.5 [degF] DO Idania Petznick Work Phone: [facility] 02-04-2024 10:38-0400 Body weight 142.88 kg DO Idania Petznick Work Phone: [facility] 01-03-2024 09:34-0400 Body height 187.96 cm DO Idania Petznick Work Phone: [facility] 01-03-2024 09:34-0400 Body mass index (BMI) [Ratio] 40.4 kg/m2 DO Idania Petznick Work Phone: [facility] 01-03-2024 09:34-0400 Body temperature 97.8 [degF] DO Idania Petznick Work Phone: [facility] 01-03-2024 09:34-0400 Body weight 142.88 kg DO Idania Petznick Work Phone: [facility] 01-03-2024 09:34-0400 Diastolic blood pressure 72 mm[Hg] DO Idania Petznick Work Phone: [facility] 01-03-2024 09:34-0400 Heart rate 76 /min DO Idania Petznick Work Phone: [facility] 01-03-2024 09:34-0400 Respiratory rate 16 /min DO Idania Petznick Work Phone: [facility] 01-03-2024 09:34-0400 SaO2% (BldA) [Mass fraction] 98 % DO Idania Petznick Work Phone: [facility] 01-03-2024 09:34-0400 Systolic blood pressure 124 mm[Hg] DO Idania Petznick Work Phone: [facility] 12-24-2023 13:15-0400 Diastolic blood pressure 73 mm[Hg] DO Idania Petznick Work Phone: [facility] 12-24-2023 13:15-0400 Heart rate 76 /min DO Idania Petznick Work Phone: [facility] 12-24-2023 13:15-0400 Respiratory rate 16 /min DO Idania Petznick Work Phone: [facility] 12-24-2023 13:15-0400 SaO2% (BldA) [Mass fraction] 97 % DO Idania Petznick Work Phone: 3(453)138-606720 [address] 12-24-2023 13:15-0400 Systolic blood pressure 135 mm[Hg] DO Idania Petznick Work Phone: 1(706)621-429845 [place] [address] 12-24-2023 11:05-0400 Body height 187.96 cm DO Idania Petznick Work Phone: 6(554)750-722245 [place] [address] 12-24-2023 11:05-0400 Body temperature 97.5 [degF] DO Idania Petznick Work Phone: 0(192)862-730545 [place] [address] 12-24-2023 11:05-0400 Body weight 142.88 kg DO Idania Petznick Work Phone: 5(181)452-576645 [place] [address] 12-06-2023 12:01-0400 Body height 187.96 cm DO Idania Petznick Work Phone: 0(628)404-693245 [place] [address] 12-06-2023 12:01-0400 Body mass index (BMI) [Ratio] 42 kg/m2 DO Idania Petznick Work Phone: 9(527)981-555520 [address] 12-06-2023 12:01-0400 Body temperature 98 [degF] DO Idania Petznick Work Phone: 4(792)624-770345 [place] [address] 12-06-2023 12:01-0400 Body weight 148.77 kg DO Idania Petznick Work Phone: 1(523)065-602345 [place] [address] 12-06-2023 12:01-0400 Diastolic blood pressure 78 mm[Hg] DO Idania Petznick Work Phone: 8(512)403-804945 [place] [address] 12-06-2023 12:01-0400 Heart rate 82 /min DO Idania Petznick Work Phone: 8(915)359-065045 [place] [address] 12-06-2023 12:01-0400 SaO2% (BldA) [Mass fraction] 97 % DO Idania Petznick Work Phone: 3(022)735-381820 [address] 12-06-2023 12:01-0400 Systolic blood pressure 132 mm[Hg] DO Idania Petznick Work Phone: 0(482)728-947445 [place] [address] 11-25-2023 14:43-0400 Heart rate 79 /min DO Idania Petznick Work Phone: [facility] 11-25-2023 14:36-0400 Body height 187.96 cm DO Idania Petznick Work Phone: [facility] 11-25-2023 14:36-0400 Body temperature 97.8 [degF] DO Idania Petznick Work Phone: [facility] 11-25-2023 14:36-0400 Body weight 148.7 kg DO Idania Petznick Work Phone: [facility] 11-25-2023 14:36-0400 Diastolic blood pressure 70 mm[Hg] DO Idaina Petznick Work Phone: [facility] 11-25-2023 14:36-0400 Respiratory rate 18 /min DO Idania Petznick Work Phone: [facility] 11-25-2023 14:36-0400 SaO2% (BldA) [Mass fraction] 93 % DO Idania Petznick Work Phone: [facility] 11-25-2023 14:36-0400 Systolic blood pressure 169 mm[Hg] DO Idania Petznick Work Phone: [facility] 11-23-2023 14:47-0400 Body temperature 98 [degF] DO Idania Petznick Work Phone: [facility] 11-23-2023 14:47-0400 Diastolic blood pressure 79 mm[Hg] DO Idania Petznick Work Phone: [facility] 11-23-2023 14:47-0400 Heart rate 77 /min DO Idania Petznick Work Phone: [facility] 11-23-2023 14:47-0400 Respiratory rate 18 /min DO Idania Petznick Work Phone: [facility] 11-23-2023 14:47-0400 SaO2% (BldA) [Mass fraction] 98 % DO Idania Petznick Work Phone: [facility] 11-23-2023 14:47-0400 Systolic blood pressure 172 mm[Hg] DO Idania Petznick Work Phone: [facility] 11-23-2023 05:54-0400 Body weight 146.2 kg DO Idania Petznick Work Phone: [facility] 11-21-2023 11:53-0400 Body height 187.96 cm DO Idania Petznick Work Phone: [facility] 11-20-2023 21:43-0400 Body temperature 97.7 [degF] DO Idania Petznick Work Phone: [facility] 11-20-2023 21:30-0400 Diastolic blood pressure 76 mm[Hg] DO Idania Petznick Work Phone: 6(320)462-894290 [place] [address] 11-20-2023 21:30-0400 Heart rate 90 /min DO Idania Petznick Work Phone: [facility] 11-20-2023 21:30-0400 Respiratory rate 18 /min DO Idania Petznick Work Phone: [facility] 11-20-2023 21:30-0400 SaO2% (BldA) [Mass fraction] 95 % DO Idania Petznick Work Phone: [facility] 11-20-2023 21:30-0400 Systolic blood pressure 121 mm[Hg] DO Idania Petznick Work Phone: [facility] 11-20-2023 18:41-0400 Body height 187.96 cm DO Idania Petznick Work Phone: [facility] 11-20-2023 18:41-0400 Body weight 147.25 kg DO Idania Petznick Work Phone: [facility] 11-08-2023 09:45-0500 Body height 187.96 cm DO Idania Petznick Work Phone: [facility] 11-08-2023 09:45-0500 Body mass index (BMI) [Ratio] 41.1 kg/m2 DO Idania Petznick Work Phone: [facility] 11-08-2023 09:45-0500 Body temperature 97.1 [degF] DO Idania Petznick Work Phone: 1(304)127-385490 [place] [address] 11-08-2023 09:45-0500 Body weight 145.14 kg DO Idania Petznick Work Phone: [facility] 11-08-2023 09:45-0500 Diastolic blood pressure 70 mm[Hg] DO Idania Petznick Work Phone: 6(529)077-589890 [place] [address] 11-08-2023 09:45-0500 Heart rate 78 /min DO Idania Petznick Work Phone: 7(479)660-328490 [place] [address] 11-08-2023 09:45-0500 SaO2% (BldA) [Mass fraction] 92 % DO Idania Petznick Work Phone: [facility] 11-08-2023 09:45-0500 Systolic blood pressure 160 mm[Hg] DO Idania Petznick Work Phone: [facility] 10-27-2023 14:48-0500 Diastolic blood pressure 67 mm[Hg] DO Idania Petznick Work Phone: [facility] 10-27-2023 14:48-0500 Heart rate 83 /min DO Idania Petznick Work Phone: [facility] 10-27-2023 14:48-0500 Respiratory rate 16 /min DO Idania Petznick Work Phone: [facility] 10-27-2023 14:48-0500 SaO2% (BldA) [Mass fraction] 99 % DO Idania Petznick Work Phone: [facility] 10-27-2023 14:48-0500 Systolic blood pressure 142 mm[Hg] DO Idania Petznick Work Phone: 1(412)170-918320 [address] 10-27-2023 13:12-0500 Body height 187.96 cm DO Idania Petznick Work Phone: 2(645)861-404445 [place] [address] 10-27-2023 13:12-0500 Body temperature 98 [degF] DO Idania Petznick Work Phone: 8(712)804-836145 [place] [address] 10-27-2023 13:12-0500 Body weight 154.22 kg DO Idania Petznick Work Phone: 6(260)978-016720 [address] 10-13-2023 11:02-0500 Body height 188 cm Flakito High DO Work Phone: [facility] 10-13-2023 11:02-0500 Body mass index (BMI) [Ratio] 43.65 kg/m2 Flakito High DO Work Phone: [facility] 10-13-2023 11:02-0500 Body weight 154.22 kg Flakito High DO Work Phone: [facility] 10-06-2023 14:18-0500 Diastolic blood pressure 67 mm[Hg] DO Idania Petznick Work Phone: 1(438)492-875590 [place] [address] 10-06-2023 14:18-0500 Heart rate 71 /min DO Idania Petznick Work Phone: 6(935)853-064390 [place] [address] 10-06-2023 14:18-0500 Respiratory rate 16 /min DO Idania Petznick Work Phone: 0(198)092-867890 [place] [address] 10-06-2023 14:18-0500 SaO2% (BldA) [Mass fraction] 96 % DO Idania Petznick Work Phone: [facility] 10-06-2023 14:18-0500 Systolic blood pressure 141 mm[Hg] DO Idania Petznick Work Phone: 3(750)930-199945 [place] [address] 10-06-2023 13:05-0500 Inhaled oxygen flow rate 6 L/min DO Idania Petznick Work Phone: 8(181)041-165790 [place] [address] 10-06-2023 12:55-0500 Body temperature 97.2 [degF] DO Idania Petznick Work Phone: [facility] 10-06-2023 09:51-0500 Body height 187.96 cm DO Idania Petznick Work Phone: [facility] 10-06-2023 09:51-0500 Body mass index (BMI) [Ratio] 44.3 kg/m2 DO Idania Petznick Work Phone: [facility] 10-06-2023 09:51-0500 Body weight 156.48 kg DO Idania Petznick Work Phone: [facility] 10-04-2023 10:45-0500 Body height 187.96 cm Ramirez Jean Other [facility] 10-04-2023 10:45-0500 Body mass index (BMI) [Ratio] 44.29 kg/m2 Ramirez Jean Other [employer] [facility] [employer] Other 10-04-2023 10:45-0500 Body temperature 98 [degF] Ramirez Jean Other [employer] Other 10-04-2023 10:45-0500 Body weight 156.49 kg Ramirez Jean Other [employer] Other 10-04-2023 10:45-0500 Body weight 156.48 kg DO Idania Petznick Work Phone: [facility] 10-04-2023 10:45-0500 Diastolic blood pressure 72 mm[Hg] Ramirez Jean Other [facility] 10-04-2023 10:45-0500 SaO2% (BldA) [Mass fraction] 93 % Ramirez Jean Other [employer] Other 10-04-2023 10:45-0500 Systolic blood pressure 150 mm[Hg] Ramirez Jean Other [facility] 09-26-2023 00:38-0500 Diastolic blood pressure 69 mm[Hg] DO Idania Petznick Work Phone: [facility] 09-26-2023 00:38-0500 Heart rate 82 /min DO Idania Petznick Work Phone: [facility] 09-26-2023 00:38-0500 Respiratory rate 20 /min DO Idania Petznick Work Phone: [facility] 09-26-2023 00:38-0500 SaO2% (BldA) [Mass fraction] 96 % DO Idania Petznick Work Phone: [facility] 09-26-2023 00:38-0500 Systolic blood pressure 138 mm[Hg] DO Idania Petznick Work Phone: [facility] 09-25-2023 19:04-0500 Body height 184.15 cm DO Idania Petznick Work Phone: [facility] 09-25-2023 19:04-0500 Body temperature 97.9 [degF] DO Idania Petznick Work Phone: [facility] 09-25-2023 19:04-0500 Body weight 158 kg DO Idania Petznick Work Phone: [facility] 09-16-2023 16:09-0500 Diastolic blood pressure 62 mm[Hg] DO Idania Petznick Work Phone: [facility] 09-16-2023 16:09-0500 Heart rate 68 /min DO Idania Petznick Work Phone: [facility] 09-16-2023 16:09-0500 Respiratory rate 16 /min DO Idania Petznick Work Phone: [facility] 09-16-2023 16:09-0500 SaO2% (BldA) [Mass fraction] 94 % DO Idania Petznick Work Phone: [facility] 09-16-2023 16:09-0500 Systolic blood pressure 119 mm[Hg] DO Idania Petznick Work Phone: [facility] 09-16-2023 13:54-0500 Body temperature 97.9 [degF] DO Idania Petznick Work Phone: [facility] 09-16-2023 13:24-0500 Inhaled oxygen flow rate 10 L/min DO Idania Petznick Work Phone: [facility] 09-16-2023 11:32-0500 Body mass index (BMI) [Ratio] 45.9 kg/m2 DO Idania Petznick Work Phone: [facility] 09-16-2023 11:26-0500 Body height 185.42 cm DO Idania Petznick Work Phone: [facility] 09-16-2023 11:26-0500 Body weight 157.85 kg DO Idania Petznick Work Phone: [facility] 06-16-2023 11:00-0400 Body height 187.96 cm Tondra Mapus Other [employer] Other 06-16-2023 11:00-0400 Body mass index (BMI) [Ratio] 43.93 kg/m2 Tondra Mapus Other [employer] Other 06-16-2023 11:00-0400 Body weight 155.22 kg Tondra Mapus Other [employer] Other 06-16-2023 11:00-0400 Diastolic blood pressure 82 mm[Hg] Tondra Mapus Other [employer] Other 06-16-2023 11:00-0400 Respiratory rate 18 /min Tondra Mapus Other [employer] Other 06-16-2023 11:00-0400 SaO2% (BldA) [Mass fraction] 98 % Tondra Mixonus Other [employer] Other 06-16-2023 11:00-0400 Systolic blood pressure 160 mm[Hg] Michelle Mixonus Other [facility] [employer] Other 11-07-2022 16:00-0500 Body temperature 97.8 [degF] DO Idania Petznick Work Phone: [facility] 11-07-2022 16:00-0500 Diastolic blood pressure 75 mm[Hg] DO Idania Petznick Work Phone: [facility] 11-07-2022 16:00-0500 Heart rate 86 /min DO Idania Petznick Work Phone: [facility] 11-07-2022 16:00-0500 Respiratory rate 16 /min DO Idania Petznick Work Phone: [facility] 11-07-2022 16:00-0500 SaO2% (BldA) [Mass fraction] 96 % DO Idania Petznick Work Phone: [facility] 11-07-2022 16:00-0500 Systolic blood pressure 162 mm[Hg] DO Idania Petznick Work Phone: [facility] 11-07-2022 06:00-0500 Body weight 144.9 kg DO Idania Petznick Work Phone: [facility] 11-06-2022 14:55-0500 Inhaled oxygen flow rate 3 L/min DO Idania Petznick Work Phone: [facility] 11-06-2022 13:24-0500 Body height 187.96 cm DO Idania Petznick Work Phone: [facility] 11-06-2022 13:24-0500 Body mass index (BMI) [Ratio] 41 kg/m2 DO Idania Petznick Work Phone: [facility] 11-04-2022 20:00-0500 Diastolic blood pressure 94 mm[Hg] DO Idania Petznick Work Phone: [facility] 11-04-2022 20:00-0500 Heart rate 81 /min DO Idania Petznick Work Phone: [facility] 11-04-2022 20:00-0500 Respiratory rate 20 /min DO Idania Petznick Work Phone: [facility] 11-04-2022 20:00-0500 SaO2% (BldA) [Mass fraction] 97 % DO Idania Petznick Work Phone: [facility] 11-04-2022 20:00-0500 Systolic blood pressure 186 mm[Hg] DO Idania Petznick Work Phone: [facility] 11-04-2022 13:57-0500 Body height 187.96 cm DO Idania Petznick Work Phone: [facility] 11-04-2022 13:57-0500 Body temperature 99.1 [degF] DO Idania Petznick Work Phone: [facility] 11-04-2022 13:57-0500 Body weight 145 kg DO Idania Petznick Work Phone: [facility] 11-01-2022 23:00-0500 Diastolic blood pressure 70 mm[Hg] DO Idania Petznick Work Phone: [facility] 11-01-2022 23:00-0500 Heart rate 80 /min DO Idania Petznick Work Phone: [facility] 11-01-2022 23:00-0500 Respiratory rate 20 /min DO Idania Petznick Work Phone: [facility] 11-01-2022 23:00-0500 SaO2% (BldA) [Mass fraction] 98 % DO Idania Petznick Work Phone: [facility] 11-01-2022 23:00-0500 Systolic blood pressure 162 mm[Hg] DO Idania Petznick Work Phone: [facility] 11-01-2022 21:02-0500 Body height 187.96 cm DO Idania Petznick Work Phone: [facility] 11-01-2022 21:02-0500 Body temperature 98 [degF] DO Idania Petznick Work Phone: [facility] 11-01-2022 21:02-0500 Body weight 149.7 kg DO Idania Petznick Work Phone: [facility] 10-10-2022 05:23-0500 Diastolic blood pressure 81 mm[Hg] DO Idania Petznick Work Phone: [facility] 10-10-2022 05:23-0500 Heart rate 92 /min DO Idania Petznick Work Phone: [facility] 10-10-2022 05:23-0500 Respiratory rate 20 /min DO Idania Petznick Work Phone: [facility] 10-10-2022 05:23-0500 SaO2% (BldA) [Mass fraction] 98 % DO Idania Petznick Work Phone: [facility] 10-10-2022 05:23-0500 Systolic blood pressure 165 mm[Hg] DO Idania Petznick Work Phone: [facility] 10-10-2022 04:13-0500 Body height 187.96 cm DO Idania Petznick Work Phone: [facility] [facility]10[facility]2022 04:13-0500 Body temperature 97.1 [degF] DO Idania Petznick Work Phone: [facility] 10-10-2022 04:13-0500 Body weight 152 kg DO Idania Petznick Work Phone: [facility] 09-23-2022 04:15-0500 Diastolic blood pressure 89 mm[Hg] DO Idania Petznick Work Phone: [facility] 09-23-2022 04:15-0500 Heart rate 72 /min DO Idania Petznick Work Phone: [facility] 09-23-2022 04:15-0500 Respiratory rate 18 /min DO Idania Petznick Work Phone: [facility] 09-23-2022 04:15-0500 SaO2% (BldA) [Mass fraction] 98 % DO Idania Petznick Work Phone: [facility] 09-23-2022 04:15-0500 Systolic blood pressure 156 mm[Hg] DO Idania Petznick Work Phone: [facility] 09-22-2022 22:41-0500 Body height 187.96 cm DO Idania Petznick Work Phone: [facility] 09-22-2022 22:41-0500 Body temperature 98.2 [degF] DO Idania Petznick Work Phone: [facility] 09-22-2022 22:41-0500 Body weight 144.75 kg DO Idania Petznick Work Phone: [facility] 08-12-2022 16:00-0500 Body height 187.96 cm Ada Moody Other [employer] Other 08-12-2022 16:00-0500 Body mass index (BMI) [Ratio] 40.36 kg/m2 Ada Moody Other [employer] Other 08-12-2022 16:00-0500 Body temperature 97.7 [degF] Ada Moody Other [employer] Other 08-12-2022 16:00-0500 Body weight 142.61 kg Ada Moody Other [employer] Other 08-12-2022 16:00-0500 Diastolic blood pressure 62 mm[Hg] Ada Moody Other [employer] Other 08-12-2022 16:00-0500 Respiratory rate 18 /min Ada Moody Other [employer] Other 08-12-2022 16:00-0500 SaO2% (BldA) [Mass fraction] 96 % Ada Moody Other [employer] Other 08-12-2022 16:00-0500 Systolic blood pressure 138 mm[Hg] Ada Moody Other [employer] Other 07-29-2022 02:30-0500 Diastolic blood pressure 75 mm[Hg] DO Idania Petznick Work Phone: [facility] 07-29-2022 02:30-0500 Heart rate 80 /min DO Idania Petznick Work Phone: [facility] 07-29-2022 02:30-0500 Respiratory rate 20 /min DO Idania Petznick Work Phone: [facility] 07-29-2022 02:30-0500 SaO2% (BldA) [Mass fraction] 94 % DO Idania Petznick Work Phone: [facility] 07-29-2022 02:30-0500 Systolic blood pressure 121 mm[Hg] DO Idania Petznick Work Phone: [facility] 07-29-2022 00:02-0500 Body height 185.42 cm DO Idania Petznick Work Phone: [facility] 07-29-2022 00:02-0500 Body temperature 97.6 [degF] DO Idania Ricketts Work Phone: [facility] 07-29-2022 00:02-0500 Body weight 143.7 kg DO Idania Ricketts Work Phone: [facility] 07-17-2022 13:13-0500 Body height 182.88 cm [employer] 07-17-2022 13:13-0500 Body mass index (BMI) [Ratio] 42.31 kg/m2 [employer] 07-17-2022 13:13-0500 Body surface area Derived from formula 2.68 m2 [employer] 07-17-2022 13:13-0500 Body weight 141.52 kg Sj [employer] 07-17-2022 13:13-0500 Body weight 0.1 {percentile} [employer] 07-17-2022 13:13-0500 Diastolic blood pressure 70 mm[Hg] [employer]j [employer] 07-17-2022 13:13-0500 Heart rate 64 /min [employer] 07-17-2022 13:13-0500 Systolic blood pressure 130 mm[Hg] [employer] 05-20-2022 17:20-0400 Body height 187.96 cm Ada Moody Other [employer] Other 05-20-2022 17:20-0400 Body mass index (BMI) [Ratio] 39.77 kg/m2 Ada Moody Other [employer] Other 05-20-2022 17:20-0400 Body temperature 96.4 [degF] Ada Moody Other [employer] Other 05-20-2022 17:20-0400 Body weight 140.53 kg Ada Moody Other [employer] Other 05-20-2022 17:20-0400 Diastolic blood pressure 72 mm[Hg] Ada Moody Other [employer] Other 05-20-2022 17:20-0400 Respiratory rate 18 /min Ada Moody Other [employer] Other 05-20-2022 17:20-0400 SaO2% (BldA) [Mass fraction] 97 % Ada Moody Other [employer] Other 05-20-2022 17:20-0400 Systolic blood pressure 150 mm[Hg] Ada Moody Other [employer] Other 03-12-2022 17:20-0400 Body height 187.96 cm Ada Moody Other [employer] Other 03-12-2022 17:20-0400 Body mass index (BMI) [Ratio] 38.68 kg/m2 Ada Moody Other [employer] Other 03-12-2022 17:20-0400 Body temperature 96.4 [degF] Ada Moody Other [employer] Other 03-12-2022 17:20-0400 Body weight 136.67 kg Ada Moody Other [employer] Other 03-12-2022 17:20-0400 Diastolic blood pressure 88 mm[Hg] Ada Moody Other [employer] Other 03-12-2022 17:20-0400 Respiratory rate 18 /min Ada Moody Other [employer] Other 03-12-2022 17:20-0400 SaO2% (BldA) [Mass fraction] 98 % Ada Moody Other [employer] Other 03-12-2022 17:20-0400 Systolic blood pressure 160 mm[Hg] Daa Moody Other [employer] Other 12-03-2021 17:20-0400 Body height 248.92 cm Ada Moody Other [employer] Other 12-03-2021 17:20-0400 Body mass index (BMI) [Ratio] 22.48 kg/m2 Ada Moody Other [employer] Other 12-03-2021 17:20-0400 Body temperature 96.7 [degF] Ada Moody Other [employer] Other 12-03-2021 17:20-0400 Body weight 139.3 kg Ada Moody Other [employer] Other 12-03-2021 17:20-0400 Diastolic blood pressure 90 mm[Hg] Ada Moody Other [employer] Other 12-03-2021 17:20-0400 Respiratory rate 18 /min Ada Moody Other [employer] Other 12-03-2021 17:20-0400 SaO2% (BldA) [Mass fraction] 96 % Aad Moody Other [employer] Other 12-03-2021 17:20-0400 Systolic blood pressure 160 mm[Hg] Ada Moody Other [employer] Other Encounters Encounter Date Encounter Type Care Provider Facility Start: 04-05-2025 End: 04-05-2025 Office outpatient new 45 minutes Kaylee Mesa PA Work Phone: [facility] Comment on above: Spinal stenosis of l umbar region with neurogenic claudication (Primary Dx); Diabetic peripheral neuropathy ([facility]) Start: 04-05-2025 End: 04-05-2025 ambulatory KAYLEE MESA [facility] Start: 03-28-2025 End: 03-29-2025 [facility] Start: 03-26-2025 End: 03-26-2025 Emergency department patient visit Idania Ricketts DO Work Phone: -Emergency Room Work Phone: Start: 03-11-2025 End: 03-11-2025 Emergency department patient visit Idania Ricketts DO Work Phone: -Emergency Room Work Phone: Start: 03-07-2025 End: 03-07-2025 ambulatory Idania Ricketts DO Work Phone: [facility] Work Phone: Start: 03-07-2025 End: 03-07-2025 Patient encounter procedure Jey Ramos MD [facility] tri Pain Mgmt Work Phone: Start: 03-01-2025 End: 03-01-2025 Refill Idania Ricketts DO Work Phone: [facility] [phone] Comment on above: 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) Start: 02-20-2025 Non-patient / Non-visit Nuria Fermin [facility] -[facility] Work Phone: Start: 02-13-2025 End: 02-13-2025 ambulatory Idania Petznick DO Work Phone: [facility] Work Phone: Start: 02-13-2025 End: 02-13-2025 Patient encounter procedure Idania Petznick DO Work Phone: [facility] Work Phone: Start: 02-02-2025 End: 02-02-2025 Emergency department patient visit Delano Benavides [facility] Start: 02-02-2025 End: 02-02-2025 Emergency department patient visit Sherley Templeton MD Work Phone: [facility] Comment on above: Idiopathic periphera l neuropathy (Primary Dx); End stage renal disease (HCC); Hyperkalemia Start: 01-01-2025 End: 01-02-2025 Emergency department patient visit Idania Monahanznick DO Work Phone: [facility]-Emergency Room Work Phone: Start: 12-30-2024 End: 12-30-2024 ambulatory [facility][note 3] Start: 12-29-2024 End: 12-29-2024 Emergency department patient visit Idania Monahanznick DO Work Phone: [facility]-Emergency Room Work Phone: Start: 12-27-2024 End: 12-27-2024 Emergency department patient visit [facility] Start: 12-21-2024 [facility] Start: 12-21-2024 ambulatory HEAVENLY BUENO [facility] Start: 12-12-2024 End: 12-12-2024 ambulatory [facility] Start: 12-12-2024 End: 12-12-2024 ambulatory [facility] Start: 12-12-2024 End: 12-12-2024 Encounter for other preprocedural examination [facility] Start: 12-06-2024 End: 12-06-2024 Emergency department [facility] Start: 12-05-2024 End: 12-05-2024 Emergency department patient [facility] Start: 12-05-2024 End: 12-05-2024 Bamboo flowsheet Idania Rossick DO Work Phone: [phone] Start: 12-05-2024 End: 12-05-2024 Bamboo flowsheet Idania Mcfarlane Petznick DO Work Phone: [facility] [...] of amputation of lesser toe, left (HCC) ([facility]/HCC) Start: 12-05-2024 End: 12-05-2024 ambulatory IDANIA RICKETTS Not Available Start: 11-27-2024 End: 11-28-2024 Emergency department patient visit Idania Ricketts DO Work Phone: [facility]-Emergency Room Work Phone: Start: 11-27-2024 End: 11-27-2024 Emergency department patient visit [place] [facility] Start: 11-27-2024 End: 11-27-2024 Emergency department patient [facility] Start: 11-27-2024 End: 11-27-2024 Telephone encounter Idania Ricketts DO Work Phone: [facility] [phone] Comment on above: Med Refill Start: 11-23-2024 Encounter for other preprocedural examination [facility] Start: 11-23-2024 ambulatory [facility] Start: 11-07-2024 End: 11-07-2024 ambulatory [facility] Start: 10-31-2024 End: 10-31-2024 ambulatory [facility] Start: 10-29-2024 End: 10-30-2024 ambulatory Maxime Magana Facility:[facility] Start: 10-29-2024 End: 10-30-2024 Evaluation and management of inpatient Idania Ricketts DO Work Phone: [facility]-[address] [place] [address] Surgical Work Phone: Start: 10-25-2024 End: 10-26-2024 Emergency department [facility] Start: 10-17-2024 End: 10-17-2024 ambulatory JOY PERNE [facility] Start: 10-17-2024 End: 10-17-2024 ambulatory [facility] Start: 10-13-2024 End: 10-13-2024 ambulatory IDANIA RICKETTS Facility:[facility] Start: 10-04-2024 End: 10-04-2024 Telephone encounter Idania Ricketts DO Work Phone: [facility] 230 Comment on above: Referral Start: 10-03-2024 End: 10-03-2024 ambulatory GI MONDRAGON Not Available Start: 10-03-2024 End: 10-03-2024 Office outpatient visit 15 minutes Gi Mondragon DPM Work Phone: [facility] Comment on above: Neuropathy (Primary Dx); Ulcer of right heel and midfoot with fat layer exposed (CMS/HCC); Ulcer of right foot, limited to breakdown of skin (CMS/HCC); Type 2 diabetes mellitus with peripheral neuropathy (CMS/HCC); Chronic kidney disease due to diabetes mellitus (CMS/HCC) Start: 10-02-2024 End: 10-02-2024 Office outpatient visit 15 minutes Idania Ricketts DO Work Phone: [facility] Comment on above: Bilious vomiting wit h nausea (Primary Dx); Type 2 diabetes mellitus with peripheral neuropathy (CMS/HCC) Start: 10-02-2024 End: 10-02-2024 ambulatory IDANIA RICKETTS Not Available Start: 09-19-2024 End: 09-19-2024 Office outpatient visit 15 minutes Idania Ricketts DO Work Phone: [facility] [phone] Comment on above: Lymphedema (Primary Dx); End stage renal disease (CMS/HCC); Venous stasis dermatitis Start: 09-19-2024 End: 09-19-2024 Patient encounter procedure Gi Mondragon DPM Work Phone: [facility] Comment on above: Ulcer of right heel and midfoot with fat layer exposed (CMS/HCC) (Primary Dx); Ulcer of right foot, limited to breakdown of skin (CMS/HCC); Type 2 diabetes mellitus with peripheral neuropathy (CMS/HCC); Neuropathy Start: 09-19-2024 End: 09-19-2024 ambulatory IDANIA RICKETTS Not Available Start: 09-12-2024 End: 09-12-2024 Telephone encounter Idania Ricketts DO Work Phone: [facility] Start: 09-12-2024 End: 09-12-2024 ambulatory [facility] Start: 09-05-2024 End: 09-05-2024 ambulatory [facility] Start: 09-04-2024 End: 09-04-2024 Office outpatient visit 15 minutes Idania Rossick DO Work Phone: [facility] Comment on above: Chronic venous insuf ficiency (Primary Dx); Lymphedema Start: 09-04-2024 End: 09-04-2024 ambulatory IDANIA RICKETTS Not Available Start: 09-01-2024 End: 09-01-2024 Telephone encounter Idania Ricketts DO Work Phone: [facility] Start: 08-28-2024 End: 08-29-2024 Emergency department patient visit Idania Ricketts DO Work Phone: [facility]-Emergency Room Work Phone: Start: 08-22-2024 End: 08-22-2024 ambulatory [facility] Start: 08-22-2024 End: 08-22-2024 ambulatory [facility] Start: 08-08-2024 End: 08-08-2024 ambulatory [facility] Start: 08-08-2024 ambulatory [place] Start: 08-07-2024 End: 08-07-2024 Office outpatient visit 25 minutes Idania Rossick DO Work Phone: [facility] Comment on above: Obstructive sleep ap bo syndrome (Primary Dx); 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 (CMS/HCC); Type 2 diabetes mellitus with peripheral neuropathy ([facility]/HCC); Essential hypertension ([facility]/HCC); Peripheral vascular disease ([facility]/HCC); End stage renal disease ([facility]/HCC); Acquired hypothyroidism ([facility]/HCC); Type 2 diabetes mellitus with ESRD (end-stage renal disease) ([facility]); 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, with long-term current use of insulin ([facility]); Chronic kidney disease with end stage renal disease on dialysis due to type 2 diabetes mellitus ([facility]); Anxiety; Dependence on renal dialysis ([facility]/HCC); Pure hypercholesterolemia ([facility]/HCC); Long-term insulin use ([facility]); Hx of amputation of lesser toe, left ([facility]) ([facility]); Class 3 severe obesity due to excess calories with serious comorbidity and body mass index (BMI) of 40.0 to 44.9 in adult ([facility]); Inguinal adenopathy Start: 08-07-2024 End: 08-07-2024 ambulatory IDANIA RICKETTS Not Available Start: 07-28-2024 End: 07-28-2024 ambulatory [facility] Start: 07-27-2024 End: 07-27-2024 ambulatory [facility] Start: 07-27-2024 End: 07-27-2024 Encounter for preprocedural cardiovascular examination [facility] Start: 07-25-2024 End: 07-25-2024 ambulatory [facility] Start: 07-18-2024 End: 07-18-2024 ambulatory [facility] Start: 07-11-2024 Encounter for prepro cedural cardiovascular examination [facility] Start: 07-11-2024 End: 07-11-2024 ambulatory [facility] Start: 07-11-2024 ambulatory [facility] Start: 06-29-2024 End: 06-29-2024 Josselin Mondragon DPM Work Phone: [facility] Start: 06-29-2024 End: 06-29-2024 Bamboo flowsheet Gi Mondragon DPM Work Phone: [facility] Start: 06-29-2024 End: 06-29-2024 Patient encounter procedure Gi Mondragon DPM Work Phone: [facility] Comment on above: Ulcer of right heel and midfoot with fat layer exposed (CMS/HCC) (Primary Dx); Ulcer of right foot, limited to breakdown of skin (CMS/HCC); Type 2 diabetes mellitus with peripheral neuropathy (CMS/HCC); Neuropathy Start: 06-29-2024 End: 06-29-2024 ambulatory GI MONDRAGON Not Available Start: 06-22-2024 End: 06-22-2024 ambulatory [facility] Start: 06-20-2024 End: 06-20-2024 amb[address] ANYA [facility] Start: 06-13-2024 End: 06-13-2024 ambulatory [facility] Start: 06-08-2024 End: 06-08-2024 Bamboo flowsheet Gi Mondragon DPM Work Phone: [facility] Start: 06-08-2024 End: 06-08-2024 Bamboo flowsheet Gi Mondragon DPM Work Phone: [facility] Start: 06-08-2024 End: 06-08-2024 Patient encounter procedure Gi Mondragon DPM Work Phone: [facility] Comment on above: Ulcer of right heel and midfoot with fat layer exposed (CMS/HCC) (Primary Dx); Type 2 diabetes mellitus with peripheral neuropathy (CMS/HCC); Neuropathy Start: 06-08-2024 End: 06-08-2024 ambulatory GI MONDRAGON Not Available Start: 05-30-2024 End: 05-31-2024 Telephone encounter Sophia Martini MA [facility] Start: 05-26-2024 End: 05-26-2024 ambulatory [facility] T[facility] Start: 05-23-2024 ambulatory PEDRO YATESKIRBYDIMITRIS [facility] Start: 05-18-2024 End: 05-18-2024 Bamboo flowsheet Gi Mondragon DPM Work Phone: [facility] Start: 05-18-2024 End: 05-18-2024 Bamboo flowsheet Gi Mondragon DPM Work Phone: [facility] Start: 05-18-2024 End: 05-18-2024 Patient encounter procedure Gi Mondragon DPM Work Phone: [facility] Comment on above: Ulcer of right [...] 15 minutes Idania Ricketts DO Work Phone: [phone] Comment on above: Type 2 diabetes conrad itus with peripheral neuropathy (CMS/HCC) (Primary Dx); Anxiety Start: 05-15-2024 End: 05-15-2024 Emergency department patient visit DO Idania Ricketts Work Phone: [facility]-Emergency Room Work Phone: Start: 05-04-2024 End: 05-04-2024 Bamboo flowsheet Gi Mondragon DPM Work Phone: [facility] Start: 05-04-2024 End: 05-04-2024 Bamboo flowsheet Gi Mondragon DPM Work Phone: [facility] Start: 05-04-2024 End: 05-04-2024 Patient encounter procedure Gi Mondragon DPM Work Phone: [facility] Comment on above: Ulcer of right heel and midfoot with fat layer exposed (CMS/HCC) (Primary Dx); Ulcer of right foot, limited to breakdown of skin (CMS/HCC) Start: 05-04-2024 End: 05-04-2024 ambulatory GI MONDRAGON Not Available Start: 04-26-2024 End: 04-27-2024 Refill Anayeli Close [phone] Comment on above: 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 ([facility]/HCC) Start: 04-13-2024 End: 04-13-2024 ambulatory GI MONDRAGON Not Available Start: 03-30-2024 End: 03-30-2024 ambulatory GI MONDRAGON Not Available Start: 03-16-2024 End: 03-16-2024 ambulatory GI MONDRAGON Not Available Start: 02-29-2024 End: 02-29-2024 ambulatory GI MONDRAGON Not Available Start: 02-25-2024 End: 02-25-2024 ambulatory IDANIA RICKETTS Not Available Start: 02-14-2024 End: 02-14-2024 ambulatory GI MONDRAGON Not Available Start: 02-07-2024 End: 02-07-2024 ambulatory GI MONDRAGON Not Available Start: 02-04-2024 End: 02-04-2024 Admission to same day surgery center DO Idania Ricketts Work Phone: [facility] [place] Start: 02-04-2024 End: 02-04-2024 ambulatory DO Idania Petjacy Work Phone: [facility] Work Phone: Start: 02-02-2024 End: 02-02-2024 ambulatory GI MONDRAGON Not Available Start: 01-24-2024 End: 01-24-2024 ambulatory GI MONDRAGON Not Available Start: 2024 End: 2024 ambulatory GI H MONDRAGON Not Available Start: 01-03-2024 End: 01-03-2024 ambulatory DO Idania Petznick Work Phone: [facility] Work Phone: Start: 01-03-2024 End: 01-03-2024 Patient encounter procedure DO Idania Petznick Work Phone: [facility] Vascular Surgery Work Phone: Start: 12-27-2023 End: 12-27-2023 ambulatory GI H MONDRAGON Not Available Start: 12-24-2023 End: 12-24-2023 Admission to same day surgery center DO Idania Petznick Work Phone: [facility] [place] Start: 12-24-2023 End: 12-24-2023 ambulatory DO Idania Petznick Work Phone: [facility] Work Phone: Start: 12-21-2023 End: 12-21-2023 ambulatory GI H MONDRAGON Not Available Start: 12-08-2023 End: 12-08-2023 ambulatory GI H MONDRAGON Not Available Start: 12-06-2023 End: 12-06-2023 ambulatory DO Idania Petznick Work Phone: [facility] Work Phone: Start: 12-06-2023 End: 12-06-2023 Patient encounter procedure DO Idania Petznick Work Phone: [facility] Physician [facility] Vascular Surgery Work Phone: Start: 11-25-2023 End: 11-25-2023 Emergency department patient visit DO Idania Petznick Work Phone: [facility]-Emergency Room Work Phone: Start: 11-22-2023 End: 11-23-2023 Non-patient / Non-visit DO Idania Petznick Work Phone: [facility] Physician [facility] Infectious Disease Work Phone: Start: 11-21-2023 End: 11-23-2023 Non-patient / Non-visit DO Idania Petznick Work Phone: [facility] Nephrology Work Phone: Start: 11-20-2023 End: 11-23-2023 Non-patient / Non-visit DO Idania Petznick Work Phone: [facility] Med OutPt Work Phone: Start: 11-20-2023 End: 11-23-2023 Evaluation and management of inpatient DO Idania Petznick Work Phone: [facility]-[address] [place] Med Surg Work Phone: Start: 11-15-2023 End: 12-21-2023 ambulatory DO Idania Petznick Work Phone: [facility] Work Phone: Start: 11-15-2023 End: 12-21-2023 Discharged Recurring DO Idania Petznick Work Phone: [facility]-Infusion Therapy - O/P Work Phone: Start: 11-15-2023 Registered Recurring DO Alliso n Petznick Work Phone: [facility]-Infusion Therapy - O/P Work Phone: Start: 11-08-2023 End: 11-08-2023 Patient encounter procedure DO Idania Petznick Work Phone: [facility] Vascular Surgery Work Phone: Start: 10-27-2023 End: 10-27-2023 Admission to same day surgery center DO Idania Petznick Work Phone: [facility] [place] Start: 10-27-2023 End: 10-27-2023 ambulatory DO Idania Petznick Work Phone: [facility] Work Phone: Start: 10-18-2023 External Result Encounter Flakito Boatengfay DO Work Phone: [facility] External Department Unsolicited Start: 10-18-2023 External Result Encounter Flakito Bone Lienolvin DO Work Phone: [facility] External Department Unsolicited Start: 10-18-2023 End: 10-18-2023 ambulatory DO Idania Petznick Work Phone: [facility] Work Phone: Start: 10-18-2023 End: 10-18-2023 Patient encounter procedure DO Idania Petznick Work Phone: [facility] Testing Work Phone: Start: 10-13-2023 Chart abstracting Flakito bah DO Work Phone: [facility] Start: 10-13-2023 End: 10-13-2023 Office outpatient visit 25 minutes Flakito High DO Work Phone: [facility] Comment on above: Peritoneal dialysis catheter dysfunction, subsequent encounter (CMS/HCC) (Primary Dx) Start: 10-07-2023 End: 10-07-2023 ambulatory Tondra Kennedy Other [employer] Other Start: 10-07-2023 Telephone encounter Michelle Kennedy [facility] Start: 10-06-2023 Non-patient / Non-visit DO All kavita Petznick Work Phone: [facility] Work Phone: Start: 10-04-2023 End: 10-04-2023 ambulatory Ramirez Jean Other [employer] Other Start: 10-04-2023 Office outpatient vi sit 25 minutes Ramirez Jean [facility] Start: 10-04-2023 End: 10-04-2023 Patient encounter procedure DO Idania Petznick Work Phone: [facility]- Start: 09-27-2023 End: 09-27-2023 ambulatory DO Idania Petznick Work Phone: [facility] Work Phone: Start: 09-27-2023 End: 09-27-2023 Patient encounter procedure DO Idania Petznick Work Phone: [facility]Ul[facility]ound [facility] [place] Work Phone: Start: 09-25-2023 End: 09-26-2023 Emergency department patient visit DO Idania Petznick Work Phone: [facility]-Emergency Room Work Phone: Start: 09-16-2023 End: 09-16-2023 Admission to same day surgery center DO Idania Petznick Work Phone: [facility]Surgery [facility] [place] Start: 09-16-2023 End: 09-16-2023 ambulatory DO Idania Petznick Work Phone: [facility] Work Phone: Start: 08-26-2023 End: 08-26-2023 ambulatory Rasheeda Fitt Other [employer] Other Start: 08-26-2023 Telephone encounter Rasheeda Byront [facility] Start: 08-10-2023 End: 08-10-2023 ambulatory Tondra Mapus Other [employer] Other Start: 08-10-2023 Telephone encounter Tondra Mapus [facility] Start: 08-09-2023 End: 08-09-2023 Emergency department patient visit DO Idania Petznick Work Phone: [facility]-Emergency Room Work Phone: Start: 07-27-2023 End: 07-27-2023 ambulatory Tondra Mapus Other [employer] Other Start: 07-27-2023 Telephone encounter Tondra Mapus [facility] Start: 07-14-2023 End: 07-14-2023 ambulatory Tondra Mapus Other [employer] Other Start: 07-14-2023 Telephone encounter Tondra Mapus [facility] Start: 07-07-2023 End: 07-07-2023 ambulatory Tondra Mapus Other [employer] Other Start: 07-07-2023 Telephone encounter Tondra Mapus [facility] Start: 06-28-2023 End: 06-28-2023 ambulatory Tondra Mapus Other [employer] Other Start: 06-28-2023 Telephone encounter Tondra Mapus [facility] Start: 06-26-2023 End: 06-26-2023 ambulatory DO Idania Rossick Work Phone: [facility] Work Phone: Start: 06-26-2023 End: 06-26-2023 Patient encounter procedure DO Idania Rossick Work Phone: [facility]-Lab [facility] [place] Work Phone: Start: 06-22-2023 End: 06-22-2023 ambulatory Tondra Mapus Other [employer] Other Start: 06-22-2023 Telephone encounter Tondra Mapus [facility] Start: 06-21-2023 End: 06-21-2023 ambulatory Tondra Mapus Other [employer] Other Start: 06-21-2023 Telephone encounter Tondra Mapus [facility] Start: 06-16-2023 Registered Recurring DO Alliso n Petznick Work Phone: [facility] Work Phone: Start: 06-16-2023 End: 06-16-2023 ambulatory Michelle Kennedy Other [employer] Other Start: 06-16-2023 FQ visit new patient [facility] Start: 03-11-2023 Office Services Sj P November and Other [facility] Start: 01-29-2023 Office Services Sj P November and Other [facility] Start: 12-18-2022 Office Services Sj P November and Other [facility] Start: 12-04-2022 (Dialysis T) Dialysi s Training Ada Moody [facility] Start: 12-04-2022 End: 12-04-2022 ambulatory Ada Moody Other [employer] Other Start: 11-20-2022 End: 11-20-2022 ambulatory DO Idania Petznick Work Phone: [facility] Work Phone: Start: 11-20-2022 End: 11-20-2022 Patient encounter procedure DO Idania Petznick Work Phone: [facility] [place] Work Phone: Start: 11-13-2022 Office Services Sj P November and Other [facility] Start: 11-04-2022 End: 11-07-2022 Evaluation and management of inpatient DO Idania Petznick Work Phone: [facility] Work Phone: Start: 11-04-2022 End: 11-04-2022 ambulatory Ada Moody Other [employer] Other Start: 11-04-2022 Telephone encounter Ada Moody [facility] Start: 11-02-2022 End: 11-02-2022 ambulatory DO Idaniakavita Ricketts Work Phone: [facility] Work Phone: Start: 11-02-2022 End: 11-02-2022 Patient encounter procedure DO Idania Petjacy Work Phone: [facility]-Lab [facility] [place] Work Phone: Start: 11-01-2022 End: 11-01-2022 Emergency department patient visit DO Idaniakavita Ricketts Work Phone: [facility]-Emergency Room Work Phone: Start: 10-26-2022 Office Services Sj Singh November and Other [facility] Start: 10-10-2022 End: 10-10-2022 Emergency department patient visit DO Idania Ricketts Work Phone: [facility]-Emergency Room Work Phone: Start: 10-09-2022 End: 10-10-2022 ambulatory Sj Francois DPM Facility:[facility] Start: 10-09-2022 Office Services Sj Singh November and Other [facility] Office Start: 09-22-2022 End: 09-23-2022 Emergency department patient visit DO Idania Ricketts Work Phone: [facility]-Emergency Room Work Phone: Start: 08-14-2022 Office Services Sj Singh November and Other [facility] Office Start: 08-12-2022 End: 08-12-2022 ambulatory Ada Moody Other [employer] Other Start: 08-12-2022 Office outpatient vi sit 25 minutes Ada Moody [facility] [place] Start: 08-12-2022 Telephone encounter Ada Moody [facility] Ne[facility] Start: 08-03-2022 End: 08-03-2022 ambulatory DO Idania Petznick Work Phone: [facility] Work Phone: Start: 08-03-2022 End: 08-03-2022 Patient encounter procedure DO Idania Petznick Work Phone: [facility] [place] Start: 07-28-2022 End: 07-29-2022 Emergency department patient visit DO Idania Petznick Work Phone: [facility]-Emergency Room Start: 07-24-2022 Office Services Sj Stallworth Other [facility] Start: 07-17-2022 End: 07-18-2022 ambulatory Sj Francois DPMaeve Facility:[facility] Start: 07-17-2022 Office outpatient ne w 30 minutes Sj Francois Other [facility] Start: 06-27-2022 End: 06-27-2022 ambulatory DO Idania Petznick Work Phone: [facility] Work Phone: Start: 06-27-2022 End: 06-27-2022 Patient encounter procedure DO Idania Petznick Work Phone: [facility] [place] Start: 06-18-2022 Encounter for prepro cedural laboratory examination [facility] Start: 06-16-2022 End: 06-16-2022 ambulatory Ada Moody Other [employer] Other Start: 06-16-2022 Telephone encounter Ada Moody [facility] Start: 06-15-2022 End: 06-16-[address] IDANIA RICKETTS Facility:[facility] Start: 06-15-2022 End: 06-16-2022 Encounter for preprocedural laboratory examination DR IDANIA RICKETTS Facility:[facility] Start: 05-20-2022 End: 05-20-2022 ambulatory Ada Moody Other [employer] Other Start: 05-20-2022 Office outpatient vi sit 25 minutes Ada Moody [facility] [place] Start: 05-16-2022 End: 05-16-2022 Patient encounter procedure DO Idania Ricketts Work Phone: [facility]-Lab [facility] Start: 05-01-2022 End: 05-02-2022 ambulatory BERTIN YVONNE Facility:[facility] Start: 03-12-2022 End: 03-12-2022 ambulatory Ada Moody Other [employer] Other Start: 03-12-2022 Office outpatient vi sit 25 minutes Ada Moody [facility] Nikhil Start: 03-06-2022 End: 03-07-2022 ambulatory KEVIN WILKES Facility:[facility] Start: 02-26-2022 End: 02-27-2022 ambulatory KEVIN WILKES Facility:[facility] Start: 02-25-2022 End: 02-25-2022 ambulatory Ada Moody Other [employer] Other Start: 02-25-2022 Telephone encounter Ada Moody [facility] Start: 02-20-2022 End: 02-20-2022 Patient encounter procedure DO Idania Herojacy Work Phone: [facility]-Lab [facility] Start: 02-19-2022 End: 02-20-2022 ambulatory KEVIN D HIGHLANDER Facility:[facility] Start: 02-09-2022 End: 02-10-2022 ambulatory KEVIN D HIGHLANDER Facility:[facility] Start: 01-27-2022 End: 01-28-[address] IDANIA RICKETTS Facility:[facility] Start: 01-21-2022 End: 01-21-2022 ambulatory KEVIN D HIGHLANDER Facility:[facility] Start: 12-31-2021 End: 01-01-2022 ambulatory KEVIN D HIGHLANDER Facility:[facility] Start: 12-03-2021 End: 12-03-2021 ambulatory Ada Moody Other [employer] Other Start: 12-03-2021 Office outpatient vi sit 25 minutes Thierry OAKLEY [facility] [place] Procedures Date Procedure Procedure Detail Performing Clinician [...] of peritonea l dialysis catheter DO Idania Pettanoick Work Phone: Start: 10-25-2023 Debridement muscle & fascia 20 sq cm/< Sj P Alessandro Other Start: 10-18-2023 Basic metabolic pane l calcium total Flakito C Laffay DO Work Phone: Start: 09-27-2023 US angiography DO Allis on Pettanoick Work Phone: Start: 09-25-2023 Plain chest X-ray DO Al amy Ricketts Work Phone: Start: 09-25-2023 SARS-CoV-2, Influenz a & RSV (PCR) DO Idania Petjacy Work Phone: Start: 09-16-2023 Plain chest X-ray DO Al amy Ricketts Work Phone: Start: 09-16-2023 Fluoroscopic guidance D O Idania Metrilojacy Work Phone: Start: 09-02-2023 Debridement muscle & [...] inserti on of peritoneal dialysis catheter DO Idania Farehelper Work Phone: Start: 11-05-2022 SARS-CoV-2, Influenz a & RSV (PCR) DO [employer]ital [employer] Work Phone: Start: 11-04-2022 Plain chest X-ray DO Al [employer] Work Phone: Start: 11-01-2022 Plain chest X-ray DO Al [employer] Work Phone: Start: 11-01-2022 Screening for occult blood in feces DO [employer] Work Phone: Start: 10-09-2022 Duplex scan of lower limb veins Sj Alessandro Start: 09-25-2022 Debridement muscle & fascia 20 sq cm/< Sj P Alessandro Other Start: 09-03-2022 Colonoscopy Flakito Laffa y DO Work Phone: Start: 08-14-2022 Foot destructive procedure Sj Alessandro Start: 08-14-2022 Procedure on wound Geronimo velasquez Alessandro Start: 07-24-2022 Evaluation AND/OR ma placido - established patient Sj Alessandro Start: 07-23-2022 Docrev cur meds by scout quintanilla Sj Alessandro Start: 07-23-2022 Procedure on wound Geronimo velasquez Alessandro Start: 07-17-2022 Docrev cur meds by scout quintanilla Sj [facility] Start: 07-17-2022 Procedure on wound Geronimo velasquez [facility] Start: 07-17-2022 Wound microscopy, cu lture and sensitivities Sj [facility] Start: 04-07-2022 PSA screening BERTIN LANDERS Comment on above: Order Comment: only males 40 and older Performed By: #### 4 [id number], [id number], [id number], [id number] #### [facility] [address] Plan of Treatment Date Care Activity Detail Author Start: 06-20-2034 Screening for malign ant neoplasm of colon [facility] Start: 09-03-2032 Screening for malign ant neoplasm of colon [facility] Start: 05-01-2031 DTaP,Tdap and Td Vac cines (3 - Td or Tdap) DTaP,Tdap and Td Vaccines (3 - Td or Tdap) [facility] Start: 04-05-2026 Adult BMI Screening Adult BMI Screen ing [facility] Start: 04-05-2026 Tobacco Screening Tobacco Screening [facility] Start: 06-22-2025 Urine screening for protein Diabetes: Urine Protein Screening [facility] Start: 05-23-2025 Urine screening for protein Diabetes: Urine Protein Screening [facility] Start: 05-17-2025 End: 05-17-2025 Patient encounter procedure 05/17/2025 10:30 AM EDT Office Visit [facility] [address] [place] [address] [place] [place] [address] Chintan Quinn DO [address] [facility], [address], [address] [place], [place] [address] [facility] Start: 05-10-2025 End: 05-10-2025 Patient encounter procedure 05/10/2025 1:00 PM EDT Office Visit [facility] [address] [place] [phone] Kaylee Mesa, PA [address] [place] [address] [facility] Start: 05-07-2025 Influenza vaccination [facility] Start: 04-27-2025 End: 04-27-2025 Admission to same day surgery center 04/27/2025 1:55 PM EDT - 04/27/2025 2:02 PM EDT Surgery [facility] [address] [place] [phone] Tyshawn Jacobson MD [address] [place], [place] [id number] INJECTION BLOCK EPIDURAL CAUDAL STEROID [15888 (CPT )] [facility] Comment on above: INJECTION BLOCK EPID URAL CAUDAL STEROID [21487 (CPT )] Start: 04-27-2025 End: 04-27-2025 Njx dx/ther sbst intrlmnr lmbr/sac w/img gdn INJECTION BLOCK EPIDURAL CAUDAL STEROID Spinal stenosis of lumbar region with neurogenic claudication 04/27/2025 1:55 PM EDT [facility] Start: 04-27-2025 Subsequent hospital visit by physician 04/27/2025 1:55 PM EDT Hospital Encounter [facility] [address] [place] [phone] Tyshawn Jacobson MD [address] [place], [place] [phone] [facility] Start: 03-05-2025 Influenza vaccination Influenza Vacc ine (#1) [facility] Comment on above: Postponed from 05/07 (Supply/Drug Shortage) Start: 01-06-2025 Glaucoma screening Diabetes: R etinopathy Screening [facility] Start: 12-05-2024 End: 12-05-2024 Patient encounter procedure 12/05/2024 2:00 PM EDT Office Visit [facility] [address] [place] [address] Idania Ricketts, DO [address] [place] [address] Arrived [facility] Comment on above: Arrived Start: 11-27-2024 Duplex scan of lower limb veins US venous duplex LE RT [facility] Start: 11-27-2024 US Lower extremity v ein - right [facility] Start: 11-08-2024 [facility] Start: 11-07-2024 [facility] Start: 11-06-2024 End: 11-06-2024 Patient encounter procedure 11/06/2024 11:30 AM EST Office Visit [facility] [address] [place] [phone] Idania Ricketts, DO [address] [place] [address] [facility] Start: 11-06-2024 [facility] Start: 11-05-2024 [facility] Start: 11-04-2024 [facility] Start: 11-03-2024 [facility] Start: 11-02-2024 [facility] Start: 11-01-2024 [facility] Start: 10-31-2024 [facility] Start: 10-30-2024 [facility] Start: 10-29-2024 [facility] Start: 10-29-2024 MRI of right foot wi th contrast MR foot RT wo/w con [facility] Start: 10-29-2024 Hospital admission [facility] Start: 10-29-2024 Patient referral to dietitian [facility] Start: 10-29-2024 Referral to infectio us diseases physician [facility] Start: 10-29-2024 Referral to grading clerk [facility] Start: 10-29-2024 Referral to manufacturing plant technician [facility] Start: 10-29-2024 [facility] Start: 10-29-2024 [facility] Start: 10-29-2024 Bacteria identified in Blood by Culture Blood Culture [facility] Start: 10-12-2024 End: 10-12-2024 Patient encounter procedure 10/12/2024 9:45 AM EST Office Visit [facility] [address] [place] [address] Gi Mondragon, DPM [address] [place] [address] [facility] Start: 10-11-2024 Hemoglobin A1c measurement Diabetes: Hemoglobin A1C [facility] Start: 10-03-2024 End: 10-03-2024 Patient encounter procedure 10/03/2024 9:30 AM EST Office Visit [facility] [address] [place] [address] Gi Mondragon, DPM [address] [place] [address] [facility] Start: 09-30-2024 Medicare Annual Well ness (AWV) Medicare Annual Wellness (AWV) [facility] Start: 09-12-2024 End: 09-12-2024 Patient encounter procedure 09/12/2024 9:30 AM EST Office Visit [facility] [address] [place] [address] Gi Mondragon, DPM [address] [place] [address] [facility] Start: 08-29-2024 End: 08-29-2024 Patient encounter procedure 08/29/2024 9:30 AM EST Office Visit [facility] [address] [place] [phone] Gi Mondragon, DPM [address] [place] [address] [facility] Start: 08-08-2024 End: 08-08-2024 Patient encounter procedure 08/08/2024 9:30 AM EST [facility] [address] [place] [address] Gi Mondragon, DPM [address] [place] [address] [facility] Start: 07-18-2024 End: 07-18-2024 Patient encounter procedure 07/18/2024 11:00 AM EST [facility] [address] [place] [address] Gi Mondragon, DPM [address] [place] [address] [facility] Start: 06-30-2024 End: 06-30-2024 [facility] Comment on above: Type 2 diabetes conrad itus with foot ulcer, with long-term current use of insulin ([facility]) Start: 06-29-2024 End: 06-29-2024 Patient encounter procedure [facility] Comment on above: Arrived Start: 06-08-2024 End: 06-08-2024 Patient encounter procedure [facility] Comment on above: Arrived Start: 05-27-2024 Hemoglobin A1c measurement Diabetes: Hemoglobin A1C [facility] Start: 05-18-2024 End: 05-18-2024 Patient encounter procedure [facility] Comment on above: Arrived Start: 05-07-2024 COVID-19 Vaccine ( season) COVID-19 Vaccine () [facility] Start: 05-07-2024 Influenza vaccination Influenza Vacc ine (#1) [facility] Start: 05-04-2024 End: 05-04-2024 Patient encounter procedure [facility] Comment on above: Arrived Start: 04-27-2024 Urine screening for protein Diabetes: Urine Protein Screening [facility] Start: 02-04-2024 [facility] Start: 12-30-2023 End: 12-30-2023 Patient encounter procedure 12/30/2023 1:15 PM EDT Office Visit [facility] [address] [place] [address] Idania Ricketts DO [address] [place] [address] [facility] Start: 12-24-2023 [facility] Start: 12-18-2023 Glaucoma screening Diabetes: R etinopathy Screening [facility] Start: 12-06-2023 Ultrasonography of arteriovenous fistula US AV Fistula [facility] Start: 12-06-2023 US AV fistula [facility] Start: 11-25-2023 [facility] Start: 11-24-2023 [facility] Start: 11-23-2023 End: 11-23-2023 [facility] Start: 11-22-2023 [facility] Start: 11-21-2023 Referral to infectio us diseases physician [facility] Start: 11-21-2023 Referral to manufacturing plant technician [facility] Start: 11-21-2023 [facility] Start: 11-20-2023 Hospital admission [facility] Start: 11-20-2023 Referral to grading clerk [facility] Start: 11-20-2023 [facility] Start: 11-20-2023 Plain chest X-ray XR chest 2V* [facility] Start: 11-20-2023 XR Chest 2 Views [facility] Start: 11-20-2023 [facility] Start: 11-20-2023 Bacteria identified in Blood by Culture Blood Culture [facility] Start: 11-20-2023 Blood culture for bacteria, including anaerobic screen Blood Culture [facility] Start: 11-20-2023 Extraction of Right Foot Skin, External Approach Extraction of Right Foot Skin, External Approach [facility] Start: 11-20-2023 Performance of Urina ry Filtration, Intermittent, Less than 6 Hours Per Day Performance of Urinary Filtration, Intermittent, Less than 6 Hours Per Day [facility] Start: 11-10-2023 End: 11-10-2023 Patient encounter procedure 11/10/2023 9:30 AM EST [facility] [address] [place] [address] Flakito High, DO [address] [place] [address] [facility] Start: 11-01-2023 End: 11-01-2023 Patient encounter procedure 11/01/2023 12:15 PM EST Procedure Visit [facility] Flakito High, DO [address] [place] [address] [facility] Start: 10-27-2023 [facility] Start: 10-13-2023 End: 10-13-2023 Patient encounter procedure 10/13/2023 11:15 AM EST Office [facility] [address] [place] [phone] Flakito High, DO [address] [place] [address] [facility] [address] [facility] Start: 10-06-2023 [facility] Start: 10-06-2023 [facility] Start: 09-27-2023 US angiography US map hemodia l access SLIM [facility] Start: 09-27-2023 US Unspecified body region [facility] Start: 09-25-2023 Plain chest X-ray XR chest 1V portab le [facility] Start: 09-25-2023 XR Chest Single view Fi [facility] Start: 09-16-2023 [facility] Start: 09-16-2023 [facility] Start: 07-28-2023 Hemoglobin A1c measurement Diabetes: Hemoglobin A1C [facility] Start: 05-07-2023 Influenza vaccination Influenza Vacc ine (#1) [facility] Start: 03-11-2023 Debridement open wou nd 20 sq cm/< Active debridement of wound 20 square centimeters or less [facility] Start: 11-20-2022 Hepatitis B core ant ibody measurement [facility] Start: 11-20-2022 [facility] Start: 11-08-2022 Blood chemistry [facility] Start: 11-08-2022 [facility] Start: 11-07-2022 Blood chemistry [facility] Start: 11-07-2022 End: 11-07-2022 [facility] Start: 11-06-2022 Blood chemistry [facility] Start: 11-06-2022 [facility] Start: 11-05-2022 Blood chemistry [facility] Start: 11-05-2022 [facility] Start: 11-04-2022 Hospital admission [facility] Start: 11-04-2022 Referral to grading clerk [facility] Start: 11-04-2022 [facility] Start: 11-04-2022 Insertion of Infusio n Device into Peritoneal Cavity, Percutaneous Endoscopic Approach Insertion of Infusion Device into Peritoneal Cavity, Percutaneous Endoscopic Approach [facility] Start: 11-01-2022 [facility] Start: 11-01-2022 Plain chest X-ray XR chest 2V* [facility] Start: 11-01-2022 XR Chest 2 Views [facility] Start: 10-09-2022 Dup-scan xtr veins unilateral/limited study [facility] Start: 07-17-2022 Cul bact xcpt urine blood/stool aerobic isol Wound culture and sensitivity [facility] Start: 05-19-2022 Urine screening for protein Diabetes: Urine Protein Screening [facility] Start: 1989 Adult BMI Follow Up Plan Adult BMI Follow Up Plan [facility] Start: 1989 Diabetic foot examination Diabetic F oot Exam [facility] Start: 1983 Depression Screening Depression Scre ening [facility] Start: 1971 Glaucoma screening Diabetic Op hthalmology Exam [facility] Start: 1971 Screening for malign ant neoplasm of colon [facility] Start: 1971 Tobacco Counseling Tobacco Counselin g [facility] Anion gap measurement [facility] aPTT in Platelet poo r plasma by Coagulation assay [facility] Basophils [#/volume] in Blood by Automated count [facility] Basophils/100 leukoc ytes in Blood by Automated count [facility] CBC W Auto Different ial panel - Blood CBC and differential Lab Routine Bilious vomiting with nausea Ordered: 10/02/[address] [facility] Comment on above: Ordered: 10/02/2024 Comprehensive metabo lic 2000 panel - Serum or Plasma Comprehensive metabolic panel Lab Routine Bilious vomiting with nausea Ordered: 10/02/[address] [facility] Work Phone: Comment on above: Ordered: 10/02/2024 Eosinophils/100 leukocytes in Blood by Automated count [facility] Erythrocyte distribu tion width [Ratio] by Automated count [facility] Erythrocytes [#/volu me] in Blood [facility] Glucose measurement estimated from glycated hemoglobin [facility] Hematocrit [Volume Fraction] of Blood [facility] Hemoglobin [Mass/vol ume] in Blood [facility] Hemoglobin A1c/Hemoglobin.total in Blood [facility] INR in Platelet poor plasma by Coagulation assay [facility] Insulin C-peptide measurement [facility] Leukocytes [#/volume ] corrected for nucleated erythrocytes in Blood by Automated coun [facility] Leukocytes [#/volume ] in Blood [facility] Lymphocytes [#/volum e] in Blood by Automated count [facility] Lymphocytes/100 leukocytes in Blood by Automated count [facility] MCH [Entitic mass] b y Automated count [facility] MCHC [Mass/volume] b y Automated count [facility] MCV [Entitic volume] by Automated count [facility] Monocytes [#/volume] in Blood by Automated count [facility] Monocytes/100 leukoc ytes in Blood by Automated count [facility] Neutrophils [#/volum e] in Blood by Automated count [facility] Neutrophils/100 leukocytes in Blood by Automated count [facility] Nucleated erythrocyt es [Presence] in Blood by Automated count [facility] Patient Education [facility] Work Phone: Patient referral [facility] Work Phone: Platelet mean volume [Entitic volume] in Blood by Automated count [facility] Platelets [#/volume] in Blood [facility] Prothrombin time (PT) [facility] Renal function 2000 panel - Serum or Plasma [facility] End: 02-02-2025 SPECIMEN REJECTION [facility] Comment on above: Once for 1 Occurrenc es starting 02/02/2025 until 02/02/2025 Thyrotropin [Units/volume] in Serum or Plasma TSH Lab Routine Bilious vomiting with nausea Ordered: 10/02/[address] [facility] Comment on above: Ordered: 10/02/2024 US AV fistula [facility] Immunizations Immunization Date Immunization Notes Care Provider Fa [facility] 06-20-2024 influenza virus vaccine, unspecified formulation Kaylee JONES Work Phone: [employer] [facility] 11-13-2022 zoster vaccine recombinant Flakito High DO Work Phone: [facility] 11-05-2022 influenza, injectabl e, quadrivalent, preservative free DO Idania Petznick Work Phone: [facility] 11-05-2022 influenza virus vaccine, unspecified formulation Flakito High DO Work Phone: [facility] 08-12-2021 COVID-19 Ad26.COV2.S (Billie) DO Idania Petznick Work Phone: [facility] 01-23-2021 COVID-19 Ad26.COV2.S (Billie) DO Idania Petznick Work Phone: [facility] 06-18-2019 influenza, high dose seasonal, preservative-free Flakito High DO Work Phone: [facility] 06-18-2019 influenza, injectabl e, quadrivalent, preservative free DO Idania Petznick Work Phone: [facility] 06-29-2014 seasonal influenza, intradermal, preservative free Flakito High DO Work Phone: [facility] 06-26-2013 seasonal influenza, intradermal, preservative free Flakito High DO Work Phone: [facility] Payers Date Payer Category Payer Medicare HMO [employer] [id number] 2024 Medicare [id number] 2023 Medicare (Managed Care) [id number] 2023 Private Health Insurance [id number] 2023 Medicare [id number]. [id number]. [id number] 2023 Unknown [id number] 2.16.840.1.749171.3.441 2023 Medicaid 1.2.840.871428. 1.13.693. 2.7.3.261661.315 2023 Medicaid [id number] 2.16.840.1.695655.3.441 2022 Unknown 1971 Unknown [id number] 2.16.840.1.501698.3.579. 2.647 1971 Unknown [id number] 2.16.840.1.545654.3.579. 2.196 1971 Unknown [id number] 2.16.840.1.793109.3.579. 2.196 1971 Unknown [id number] 2.16.840.1.106675.3.579. 2.593 1971 Unknown [id number] 2.16.840.1.878153.3.579. 2.593 1971 Unknown [id number] 2.16.840.1.919995.3.579. 2.593 1971 Unknown [id number] 2.16.840.1.095893.3.579. 2.59 1971 Unknown [id number] 2.16.840.1.240359.3.579. 2.59 1971 Unknown [id number] 2.16.840.1.200102.3.579. 2.593 1971 Unknown [id number] 2.16.840.1.212601.3.579. 2.593 1971 Unknown [id number] 2.16.840.1.634169.3.579. 2.718 1971 Unknown [id number] 2.16.840.1.057593.3.579. 2.1258 1971 Unknown [id number] 2.16.840.1.810695.3.579. 2.1258 1971 Unknown [id number] 2.16.840.1.731665.3.579. 2.125 1971 Unknown [id number] 2.16.840.1.540787.3.579. 2.1258 1971 Unknown [id number] 2.16.840.1.402428.3.579. 2.1258 1971 Unknown [id number] 2.16.840.1.493461.3.579. 2.1251971 Unknown [id number] 2.16.840.1.744963.3.579. 2.1258 1971 Unknown [id number] 2.16.840.1.990254.3.579. 2.1258 1971 Unknown [id number] 2.16.840.1.855427.3.579. 2.1258 1971 Unknown [id number] 2.16.840.1.125120.3.579. 2.1258 1971 Unknown [id number] 2..840.1.940740.3.579. 2.1258 1971 Unknown [id number] 2.16.840.1.442837.3.579. 2.1258 1971 Unknown [id number] 2..840.1.896247.3.579. 2.1258 1971 Unknown [id number] 2.16.840.1.567271.3.579. 2.1258 1971 Unknown [id number] 2..840.1.089078.3.579. 2.1258 1971 Unknown [id number] 2.16.840.1.605631.3.579. 2.1258 1971 Unknown [id number] 2.16.840.1.600117.3.579. 2.1258 1971 Unknown [id number] 2.16.840.1.598294.3.579. 2.1258 1971 Unknown [id number] 2.16.840.1.668277.3.579. 2.1258 1971 Unknown [id number] 2.16.840.1.465755.3.579. 2.1258 1971 Unknown [id number] 2.16.840.1.930079.3.579. 2.1258 1971 Unknown [id number] 2.16.840.1.542507.3.579. 2.12581971 Unknown [id number] 2.16.840.1.589207.3.579. 2.1258 1971 Unknown [id number] 2.16.840.1.084667.3.579. 2.1258 1971 Unknown [id number] 2.16.840.1.300473.3.579. 2.1258 1971 Unknown [id number] 2.16.840.1.100650.3.579. 2.1258 1971 Unknown [id number] 2.16.840.1.807631.3.579. 2.173 1971 Unknown [id number] 2.16.840.1.193905.3.579. 2.7 1971 Unknown [id number] 2.16.840.1.067300.3.579. 2.1285 1971 Unknown [id number] 2.16.840.1.113881.3.579. 2.1285 1971 Unknown [id number] 2.16.840.1.087163.3.579. 2.1285 1971 Unknown [id number] 2.16.840.1.428912.3.579. 2.1285 1971 Unknown [id number] 2.16.840.1.973359.3.579. 2.1285 1971 Unknown [id number] 2.16.840.1.605338.3.579. 2.1285 1971 Unknown [id number] 2.16.840.1.861333.3.579. 2.1285 1971 Unknown [id number] 2.16.840.1.117807.3.579. 2.1285 1971 Unknown [id number] 2.16.840.1.575052.3.579. 2.1286 1959 Self-pay [id number] 1959 Unknown [id number] 2.16.840.1.800152.19 Medicare [id number] Medicare [id number] 2.16.840.1.052216.19 Unknown [id number] Unknown [id number] 2.16.840.1.388622.3.579. 2.593 Unknown [id number] 2.16.840.1.465114.3.579. 2.531 Unknown [id number] 2.16.840.1.212978.3.579. 2.531 Unknown [id number] 2.16.840.1.809703.3.579. 2.531 Unknown [id number] 2.16.840.1.788969.3.579. 2.531 Unknown [id number] 2.16.840.1.121836.3.579. 2.531 Unknown [id number] 2.16.840.1.247800.3.579. 2.531 Unknown [id number] 2.16.840.1.727126.3.579. 2.531 Unknown [id number] 2.16.840.1.415520.3.579. 2.531 Social History Date Type Detail Facility Unknown if ever smoked [facility] [employer] [facility] [employer] Other Start: 10-17-2020 End: 09-30-2023 Sex Assigned At [facility] [employer] [facility] [employer] Other Start: 09-11-2021 End: 08-09-2023 Tobacco smoking status [facility] Never smoked tobacco (finding) [facility] Start: 1970 Sex Assigned At Male [facility] Start: 09-23-2022 Tobacco smoking status VAIS Smoker (finding) [facility] Start: 03-02-2023 End: 02-02-2025 Tobacco use and exposure Smokeless tobacco non-user [facility] Start: 10-13-2023 End: 12-05-2024 Alcohol intake Lifetime [...] Start: 04-11-2015 End: 10-30-2024 Sex Male (finding) [facility] Do you belong to any clubs or organizations such as spiritism groups, unions, fraternal or athletic groups, or [...] months, were you homeless or living in [facility] [including now]? No [facility] Tobacco smoking status [facility] Start: 08-09-2023 Tobacco use and exposure User of smokeless tobacco [facility] History of tobacco use Chews Tobacco [facility] Start: 04-05-2025 Alcoholic beverage intake Current non-drinker of alcohol (finding) [facility] Medical Equipment Procedure Code Equipment Code Equipment Origin al Text Equipment Identifier Dates Wound debridement Collagen wound matrix dressing ()[id number] FDA Start: 12-24-2023 Wound debridement Collagen wound matrix dressing ()[id number] FDA Start: 02-04-2024 Wound debridement Collagen wound matrix dressing ()[id number] FDA Start: 02-04-2024 Insertion, catheter, dialysis, peritoneal, laparoscopic Peritoneal dialysis catheter, chronic ()[id number] FDA Start: 11-06-2022 Fluoroscopic guidance for insertion of tunnelled dialysis catheter Double-lumen haemodialysis catheter, implantable +[id number]$$ [id number] FDA Start: 09-16-2023 Goals Date Patient Goal Desired Activity /State Functional Status Date Assessment Result Facility 11-23-2023 Functional status Patient at Baseline [facility] Work Phone: 11-07-2022 Functional status Patient at Baseline [facility] Work Phone: Mental Status Date Assessment Result Facility 11-23-2023 Cognitive function Cognitive Sta tus Patient at Baseline [facility] Work Phone: 11-07-2022 Cognitive function Cognitive Sta tus Patient at Baseline [facility] Work Phone: Clinical Notes 08-21-2021 to 04-05-2025 KAREN Box - 04/05/2025 10:00 AM EDTPatient Instructions Note Date & Type Note Facility 04-05-2025 History of Present illness Narrative [facility] [address] [place] [address] Patient: Evans Forte Jr. Sex: male : [...] on 5-9am via left avf Diabetes mellitus ([facility]) Diabetes mellitus type 2, controlled ([facility]) Hyperlipidemia Hypothyroid Obesity Past Surgical History: Procedure Laterality Date CARDIAC CATHETERIZATION 12/2024 last one (2 total) FISTULA CREATION Left FOOT SURGERY Right Allergies Allergen Reactions Vancomycin Hives Ontonagon Seed Abdominal Pain Runny nose, watery eyes [...] Resource Strain: Medium Risk (12/05/2024) Received from [facility] Overall Financial Resource Strain (CARDIA) Difficulty of Paying Living Expenses: Somewhat hard Food Insecurity: No Food Insecurity (04/05/2025) Hunger Screening Food Insecurity - Worry: Never True Food Insecurity - Inability: Never True Transportation Needs: No Transportation Needs (12/05/2024) Received from [facility] PRAPARE - Transportation Lack of Transportation (Medical): No Lack of Transportation (Non-Medical): No Physical Activity: Insufficiently Active (12/05/2024) Received from [facility] Exercise Vital Sign Days of Exercise per Week: 3 days Minutes of Exercise per Session: 30 min Stress: Stress Concern Present (12/05/2024) Received from [facility] Martiniquais [place] of Occupational Health - Occupational Stress Questionnaire Feeling of Stress : To some extent Social Connections: Socially Integrated (12/05/2024) Received from [facility] Social Connection and Isolation Panel [NHANES] Frequency of Communication with Friends and Family: More than three times a week Frequency of Social Gatherings with Friends and Family: Three times a week Attends Hinduism Services: 1 to 4 times per year Active Member of Clubs or Organizations: Yes Attends Club or Organization Meetings: 1 to 4 times per year Marital Status: Interpersonal Safety: Not At Risk (12/21/2024) Received from [facility] Humiliation, Afraid, Rape, and Kick questionnaire Fear of Current or Ex-Partner: No Emotionally Abused: No Physically Abused: No Sexually Abused: No Housing Instability: High Risk (12/05/2024) Received from [facility] Housing Stability Vital Sign Unable to Pay [...] Box 04/05/25 1155 documented in this encounter [facility] [place] 04-05-2025 Instructions Minda Paiz CNA - 04/05/2025 [...] a safety precaution, you must have a yard driver after a lumbar nerve root injection, [...] back to normal. documented in this encounter [facility] 03-26-2025 Hospital Discharge instructions Additional Instructions Very [...] a primary care provider, you can contact [facility] and ask about being established for primary care services. If you require specialist follow up, such as with an orthopedic physician, food and drug research scientist, urologist, or other medical specialty, you should [...] should first take Tylenol or ibuprofen available zveb-udc-grolcll. Medications, if prescribed to treat pain from [...] or if you have any other concerns [facility] Work Phone: 02-13-2025 Evaluation note Diagnosis Onset Date Resolution Diabetic peripheral neuropathy acute February 13, 2025 8:20am Lumbar radiculopathy acute February 13, 2025 8:20am Other chronic pain acute February 042024 8:20am Lumbar radiculopathy acute March 07, 2025 3:40pm Other chronic pain acute March 072024 3:40pm [facility] Work Phone: 1(390) 552-745105-30-2025 Hospital Discharge instructions Patient Education 02/02/2025 18:32:46 [...] relieve pain. Medicines may include: ?Prescription or tpgj-wzp-engmjpc pain medicine. ?Anti-seizure medicine. ?Antidepressants. ?Pain-relieving patches that are applied to painful areas of skin. Surgery to relieve pressure on a nerve or to destroy a nerve that is causing pain. Physical therapy to help improve movement and balance. Devices to help you move around (assistive devices). Follow these instructions at home: Medicines Take glxe-hat-gojygyh and prescription medicines only as told by [...] important. Where to find more information National [place] of Neurological Disorders: www.ninds.nih.gov Contact a health [...] provider. Document Revised: 04/28/2022 Document Reviewed: 04/28/2022 [employer] Patient Education 2023 [employer]. 02/02/2025 18:32:46 Acute Pain, Adult Acute Pain, [...] Follow these instructions at home: Medicines Take flfi-tpy-rdtczlv and prescription medicines only as told by [...] pain is severe. ?Do not take other trfd-khs-eusnioc pain medicines in addition to prescription pain [...] to keep your urine pale yellow. Take chko-lbd-mdcuvef or prescription medicines. Eat foods that are [...] provider. Document Revised: 03/17/2023 Document Reviewed: 03/17/2023 [employer] Patient Education 2023 [employer]. 02/02/2025 18:32:46 Neuropathic Pain Neuropathic Pain Neuropathic [...] this treated? Treatment for neuropathic pain may changer fixer time. You may need to try different treatment options or a combination of treatments. Some options include: Treating the underlying cause of the neuropathy, such as diabetes, kidney disease, or vitamin deficiencies. Stopping medicines that can cause neuropathy, such as chemotherapy. Medicine to relieve pain. Medicines may include: ?Prescription or mjsv-trf-tpjnfhl pain medicine. ?Anti-seizure medicine. ?Antidepressant medicines. ?Pain-relieving [...] Follow these instructions at home: Medicines Take jgbq-yez-ayuiqnf and prescription medicines only as told by your health care provider. Ask your health care provider if the medicine prescribed to you: ?Requires you to avoid driving or using machinery. ?Can cause constipation. You may need to take these actions to prevent or treat constipation: ?Drink enough fluid to keep your urine pale yellow. ?Take gnrw-cef-quuilsw or prescription medicines. ?Eat foods that are [...] the National Suicide Prevention Lifeline at or 166. This is open 24 hours a day. Text the Crisis Text Line at 260272. Summary Neuropathic pain is pain caused by [...] provider. Document Revised: 04/20/2022 Document Reviewed: 04/20/2022 Elsevier Patient Education 2023 [employer]. Follow Up Care 02/02/2025 18:06:53 With:IDANIA RICKETTS Address: [address], [address] [address]- Business (1) When:02/05/2025 18:24:24 Comments:Call for diagnosis based follow up [facility] 05-30-2025 NoteED Patient Education Note [...] pain. Medicines may include: ? Prescription or kgrm-mce-zvqdung pain medicine. ? Anti-seizure medicine. ? Antidepressants. ? Pain-relieving patches that are applied to painful areas of skin. ??? Surgery to relieve pressure on a nerve or to destroy a nerve that is causing pain. ??? Physical therapy to help improve movement and balance. ??? Devices to help you move around (assistive devices). Follow these instructions at home: Medicines ??? Take mpfu-iyv-chnfqjc and prescription medicines only as told by [...] system. Living wi (more content not included)... [facility]05-30-2025 Hospital Discharge instructions* Discharge Instructions* Sherley Templeton MD - 02/02/2025 12:02 PM EDT I have consulted pharmacist at this time they recommend only 75 mg Lyrica per day in addition please continue with your lokelma as previously advised for treatment of your elevated potassium Please also keep your dialysis appointment within 24 hours Please keep follow-up appointments with your grading clerk and wound care as previously scheduled * Attachments The following attachments cannot be sent through Care Everywhere. * Hyperkalemia (Bahamian) * Kidney Disease: Medicines to Avoid (Bahamian) * Neuropathic Pain (Bahamian) [facility]25 [place] [address] Subjective Patient ID: Evans Forte is a [...] rescheduled his thoracic imaging and has his [facility] evaluation in January scheduled. He continues [...] of left foot Type 2 diabetes mellitus ([facility]) Charcot's joint of foot Hypertension, essential Acquired hypothyroidism Hyperlipidemia Vitamin D deficiency Libido, decreased Erectile dysfunction Hypogonadism male Diabetic neuropathic arthropathy ([facility]) Diabetic neuropathy with neurologic complication ([facility]) End stage renal disease ([facility]) Glaucoma Hypoglycemia due to type 2 diabetes mellitus ([facility]) Iron deficiency anemia 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, 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, trunk FCI current use of insulin ([facility]) Microalbuminuria Mild left ventricular systolic dysfunction Morbid obesity ([facility]) Obstructive sleep apnea syndrome Osteomyelitis ([facility]) Polyneuropathy due to type 2 diabetes mellitus ([facility]) Ulcer of right foot with fat layer exposed (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) PVD (peripheral vascular disease) Adrenal nodule Anxiety Insomnia Osteomyelitis of left foot ([facility]) Diabetic retinopathy ([facility]) Past history of chewing tobacco use Mild nonproliferative diabetic retinopathy associated with type 2 diabetes mellitus ([facility]) Diabetic foot ulcers ([facility]) Chronic sinusitis COVID-19 Anemia Preop examination Cardiovascular stress test abnormal Current tobacco use Enlarged lymph node Lymphedema Venous stasis dermatitis Neuropathic pain Intervertebral disc disorders with radiculopathy, lumbar region Past Medical History: Diagnosis Date Adrenal nodule left adrenal adenoma Anemia Anxiety Charcot foot due to diabetes mellitus ([facility]) Right, s/p reconstructive surgery Chronic sinusitis COVID-19 08/2023 Diabetic foot ulcers ([facility]) right Diabetic polyneuropathy ([facility]) Diabetic retinopathy ([facility]) ED (erectile dysfunction) ESRD (end stage renal disease) ([facility]) 11/23/2022 GERD (gastroesophageal reflux disease) Glaucoma [...] AMPUTATION Left Left lesser (more content not included)...[facility] 12-21-[address] [...] scans to review with MD. Heavenly Bueno, [facility] Medical Oncology/Hematology [phone] SUBJECTIVE: HPI: Evans Forte 54 y.o. man, [...] pericervical, anterior cervical, late (more content not included)...[facility]04-01-2025 History of Present illness Narrative* Idania [...] with chief complaint of ER Follow-up HPI: [facility] ER FOLLOW UP FROM 11/27/2024 Complains of [...] one will be placed in the 12/21/2024 [place] works well to help control the pain. [...] bg. Flowsheet Row Documentation from 11/28/2024 in [facility] with Elsy Infanteman [place] Hospital Information ED, Hospital or Long-Term Facility Discharge? ED Patient has been contacted within 2 days of being seen in the ED Yes Diagnosis -- [Edema right lower leg] Discharge Date 11/27/24 Discharged To: Home Setting Discharge [facility] Engagement Medications Discharge medications reviewed and reconciled from hospital? Yes Prescription Comments -- [Hydrocodone-acet 5-325mg Q4-6H prn] Appointments Does the patient have a primary care provider? Yes Self Management Patient Teaching Wrap Up SUBJECTIVE: See medication list at the end of the note. Allergies Allergen Reactions Latex Rash Other Reaction(s): Unknown If on for long periods of time Vancomycin Hives Haloperidol Anxiety Ontonagon Oil GI intolerance Runny nose, watery eyes [...] List Items Addressed This Visit Acquired hypothyroidism ([facility]) Anxiety Dependence on renal dialysis ([facility]) End stage renal disease ([facility]) Essential hypertension ([facility]) Obstructive sleep apnea syndrome Peripheral vascular disease ([facility]) Pure hypercholesterolemia ([facility]) Type 2 diabetes mellitus with foot ulcer (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) - Primary During the appointment today all [...] Type 2 diabetes mellitus with peripheral neuropathy ([facility]) Discussed that opioids are not the [...] edema, with long-term current use of insulin ([facility]) Long-term insulin use ([facility]) Class 3 severe obesity due to excess calories with serious comorbidity and body mass index (BMI) of40.0 to 44.9 in adult Hx of amputation of lesser toe, left (HCC) ([facility]) Chronic kidney disease with end stage renal disease on dialysis due to type 2 diabetes mellitus ([facility]) Follow up for Next scheduled follow-up. [...] 5,000 UNITS TABLET Daily. CONTINUOUS BLOOD GLUC SIGNAL CONSTRUCTOR (DEXCOM G7 SIGNAL CONSTRUCTOR) DEVICE 1 (one) time each day at [...] with the patient today. documented in this encounterTenet St. LouisUjutvjdxzz79-52-2459 Telephone encounter Note* Telephone Encounter - Gretchen Plummer - 11/27/2024 3:43 PM EDT Lyrica refill sent to [facility]. [facility] [id number] Miscellaneous Notes* Telephone Encounter - Gretchen Plummer - 11/27/2024 3:43 PM EDT Lyrica refill sent to [facility]. documented in this encounterTenet St. LouisOvazjldcbt45-86-1151 Note Attestation signed by Chong Cooley MD [...] the trial produced relief. [facility] [address] [address] Referral Source: self-referral, found spinal cord stimulator [...] adequate relief longer than 1 week duration, Ivanhoe with fair relief, Lyrica with inadequate relief, [...] Medical History: Diagnosis Date (more content not included)...[facility] 11-07-2024 NoteDate of Telehealth Visit: 11/07/2024 Follow up on right foot wound and LAP HPI The visit was conducted [id number] with the use of audio and video technology using HIPAA approved The Switch System between patient and the provider for [...] in 2 months Faustino Morel MD [facility] diseasesT[facility]02-[facility]-2025 NotePatient was seen today in wound clinic. Documentation is provided in [employer] EHR wound care documenting system. See Intellicure [...] RTC 2-3 weeks GDMT for PAD: tesfaye, [facility]02-24-2025 Progress note Author Kit Lundy [facility] Note Date/Time October 30, 2024 6:06am [facility] [address] [place] [address] Progress Note Signed Patient: Evans Forte MR#: [id number] : 1970 Acct:[id number] Age/Sex: 54 / M Adm Date: 5 Loc: Room: [address] [place] [address] Type: ADM IN Attending Dr: Maxime Magana [...] wants to leave AMA and go to [facility] tomorrow. Documented By: Kit Lundy MD 10/30/24 010 Signed By: <Electronically signed by Kit Lundy MD> 10/30/24 06 [facility] Work Phone: 1(261) 896-150602-24-[address] [address] Progress Note Signed Patient: Evans Forte MR#: [id number] : 1970 Acct:[id number] Age/Sex: 54 / M Adm Date: 5 Loc: 4N Room: [address] [place] [address] Type: ADM IN Attending Dr: Maxime Magana [...] wants to leave AMA and go to [facility] tomorrow. Documented By: Kit Lundy MD 10/30/24 0102 Signed By: 10/30/24 0606 [facility]02-23-2025 History and physical note Author Maxime Magana [facility] Note Date/Time October 29, 2024 9:14pm [facility] [address] [place], [place] [id number] Hospitalist H&P Signed Patient: Evans Forte MR#: [id number] : 1970 Acct:[id number] Age/Sex: 54 / M Adm Date: 5 Loc: 4N Room: [address] [place] [address] Type: ADM IN Attending Dr: Maxime Magana DO Copies to: DO Maxime Dhillon DO~ HPI DATE OF EXAMINATION: 10/29/24 CHIEF COMPLAINT: right foot infection, right leg cellulitis. HISTORY OF PRESENT ILLNESS: This is a 54-year-old man who came to the emergency room with right foot infection. This is located in the heel. He went to the [facility] for a wound care center appointment and he says they opened it and they dug around really deep. He explains that he was made to go to the wound care center at the [facility] because the kidney transplant program there wants him to get everything done at the [facility]. So he has had only 1 visit [...] foot by podiatry with Dr. Wilkes out [facility]. So there are a number of plates [...] of getting on the transplant list at [facility] and the last thing that he needs [...] mentioned elsewhere in the documentation. [facility] Medical History (Updated 10/29/24 @ 21:11 by [...] (AV) fistula creation History of cardiac catheterization [facility] History of orthopedic surgery right foot has [...] tender to the touch and mildly warm. Dariron not smell any malodor or seedy drainage [...] % (Auto) 14.2 % (.) 10/29/24 18:14 [place] % (Auto) 6.8 % (.) 10/29/24 18:14 Eos % (Auto) 3.4 % (.) 10/29/24 18:14 Baso % (Auto) 1.1 % (.) 10/29/24 18:14 Nucleat RBC Rel Count 0.0 /100 WBC (0-0.5) 10/29/24 18:14 Neut # (Auto) 7.5 x10E3/uL (1.8-7.7) 10/29/24 18:14 Lymph # (Auto) 1.4 x10E3/uL (1.00-4.8) 10/29/24 18:14 [place] # (Auto) 0.7 x10E3/uL (0.0-0.8) 10/29/24 18:14 [...] By: <Electronically signed by Maxime Magana DO> 10/29/24 2114 [facility] Work Phone: 1(136) 853-202102-23-2025 Evaluation note* Diagnosis Onset Date Resolution Status Admit Date Benign hypertension with end-stage renal disease acute October 29, 2024 7:28pm Cellulitis acute October 29, 2024 7:28pm Cellulitis of leg, right acute October 29, 2024 7:28pm ESRD on hemodialysis acute 2024 7:28pm Right foot infection acute 2024 7:28pm Type 2 diabetes mellitus wit h diabetic chronic kidney disease acute October 29 7:28pm [facility] Work Phone: 1(825) 587-393002-23-2025 [place] [address] Hospitalist H&P Signed Patient: Evans Forte MR#: [id number] : 1970 Acct:[id number] Age/Sex: 54 / M Adm Date: 5 Loc: Room: [address] [place] [address] Type: ADM IN Attending Dr: Maxime Magana DO Copies to: DO Maxime Dhillon DO~ HPI DATE OF EXAMINATION: 10/29/24 CHIEF COMPLAINT: right foot infection, right leg cellulitis. HISTORY OF PRESENT ILLNESS: This is a 54-year-old man who came to the emergency room with right foot infection. This is locatedin the heel. He went to the [facility] for a wound care center appointment and he says they opened it and they dug around really deep. He explains that he was made to go to the wound carecenter at the [facility] because the kidney transplant program there wants him to get everything done at the [facility]. So he has had only 1 visit [...] by podiatry with Dr. Wilkes out of [place]. So there are a number of plates [...] of getting on the transplant list at [facility] and the last thing that he needs [...] mentioned elsewhere in the documentation. [facility] Medical History (Updated 10/29/24 @ 21:11 by [...] (AV) fistula creation History of cardiac catheterization [facility] History of orthopedic surgery right foot has [...] tirzepatide 5 mg/0.5 mL subcutaneous pen injector (Mounandrewro) 5 mg subcut QWEEK 10/06/23 [History Confirmed [...] % (Auto) 14.2 % (.) 10/29/24 18:14 [place] % (Auto) 6.8 % (.) 10/29/24 18:14 Eos % (Auto) 3.4 % (.) 10/29/24 18:14 Baso % (Auto) 1.1 % (.) 10/29/24 18:14 Nucleat RBC Rel Count 0.0 /100 WBC (0-0.5) 10/29/24 18:14 Neut # (Auto) 7.5 x10E3/uL (1.8-7.7) 10/29/24 18:14 Lymph # (Auto) 1.4 x10E3/uL (1.00-4.8) 10/29/24 18:14 [place] # (Auto) 0.7 x10E3/uL (0.0-0.8) 10/29/24 18:14 [...] By: Maxime Magana DO 2099 Signed By: 10/29/242113 [facility]02-11-2025 NotePatient was seen today in wound clinic. Documentation is provided in [employer] wound care documenting system. See Intellicure note [...] evidence of significant arterial occlusive disease bilaterally. [facility]02-11-2025 NoteSubjective Patient ID: Evans Forte is a 54 y.o. 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 90 tablet (more content not included)...[facility]01-29-2025 Telephone encounter Note* Telephone Encounter - Gretchen Plummer - 10/04/2024 9:10 AM EST Pt's spouse is requesting a Referral, office notes, medication list to Dr. Martel for pain management fax [phone] [facility] [id number] Miscellaneous Notes* Telephone Encounter - Gretchen Plummer - 10/04/2024 9:10 AM EST Pt's spouse is requesting a Referral, office notes, medication list to Dr. Martel for pain management fax [phone] LouisZcxrndwyue88-98-5469 History of Present illness Narrative* Gi H Giancarlo, DPM - 10/03/2024 9:30 AM EST Images [...] boot for offloading/pressure reduction. Patient does have [facility] for dressing changes. Encouraged him to [...] the patient to go to [facility] in [place] for their DM shoes and inserts. 4. Patient will be contacted for appointment information once pre-certification has been completed if required. documented in this encounterTenet St. LouisBxkpmulxwt95-74-9145 History of Present illness Narrative* Idania Ricketts [...] periods of time Vancomycin Hives Haloperidol Anxiety Ontonagon Oil GI intolerance Runny nose, watery eyes [...] 5,000 UNITS TABLET Daily. CONTINUOUS BLOOD GLUC SIGNAL CONSTRUCTOR (DEXCOM G7 SIGNAL CONSTRUCTOR) DEVICE 1 (one) time each day at the same time. CONTINUOUS BLOOD GLUC SENSOR (DEXCOM G7 SENSOR) [facility] as directed every 10 days for 90 [...] with the patient today. documented in this encounterTenet St. LouisMzejbaapcm06-66-15[address] Catia dunham both [facility]01-14-2025 History of Present illness Narrative* Idania [...] testing came back normal. He saw the amusement ride inspector after this and they referred him to [...] periods of time Vancomycin Hives Haloperidol Anxiety Ontonagon Oil GI intolerance Runny nose, watery eyes [...] dermatitis Lymphedema - Primary Relevant Medications HYDROcodone-acetaminophen (I[place]hoe) 5-325 MG tablet Other Relevant Orders Ambulatory [...] that he is getting narcotics from [place] about every 3 months. He states that he doesn't go to [place] and that those are not his. He also says some of his dialysis medications keep getting sent to a kevin in [place] with the same name. He is to [...] 5,000 UNITS TABLET Daily. CONTINUOUS BLOOD GLUC SIGNAL CONSTRUCTOR ([employer] G7 SIGNAL CONSTRUCTOR) DEVICE 1 (one) time each day at [...] with the patient today. documented in this encounterTenet St. LouisOxrxwfszbz36-66-7678 History of Present illness Narrative* Gi Mondragon, PEEM - 09/19/2024 9:15 AM EST Images from [...] boot for offloading/pressure reduction. Patient does have [facility] for dressing changes. Encouraged him to [...] 5. RTC: 2-3 weeks. documented in [address] encounterTenet St. LouisOglelojpbk86-16-7042 NoteTC returned message to patient regarding work up status. Patient states has completed lymph node biopsy and bone biopsy and both came back negative. Patient recommended to follow up with infectious disease regarding lymph nodes. Patient continues to work on nicotine cessation, dental and podiatry. Patient will update TC after appointment with infectious disease. Melinda Hidalgo, JACOBUnAkron Children's Hospital01-07-2025 Telephone encounter Note* Telephone Encounter - Gretchen Camachoying - 09/12/2024 10:51 AM EST Pt's spouse called stating pt has cellulitis. Lower part of right leg is red, hot to the touch, andswollen. She feels he needs an antibiotic called in. [facility] in [place]. [facility] [id number] Miscellaneous Notes* Telephone Encounter - Gretchen Camachojoynathaniel - 09/12/2024 10:51 AM EST Pt's spouse called stating pt has cellulitis. Lower part of right leg is red, hot to the touch, andswollen. She feels he needs an antibiotic called in. [facility] in [place]. documented in this encounterTenet St. LouisPmrigldqfq36-46-6384 Note Attestation signed by Sivan Keller MD [...] 08/22/2024 MCH 30.9 1 (more content not included)...[facility] 09-05-2024 NoteSubjective Patient ID: Evans Forte [...] Summary Flow cytometry studies were completed at [facility] Disconnect: Leukemia/lymphoma phenotyping evaluation by flow cytometry: - [...] the past 36 hour(s)). No follow-ups on file.[facility]12-30-2024 History of Present illness Narrative* Idania Ricketts, - 09/04/2024 1:30 PM EST Images from the original note were not included. Evans Forte is a 54 y.o. male presents with chief complaint of ER Follow-up HPI: [facility] ER Follow up from 08/28/2024 He did have a lymph node biopsy in the right groin 12/22/204 C/o swelling in right leg and calf [...] Ricketts, DO Hospital Information ED, Hospital or Long-Term Facility Discharge? ED Patient has been contacted within 1 week of being seen in the ED Yes Diagnosis right leg edema Discharge Date 08/28/24 Discharged To: Home Setting Discharge [facility] Engagement Admission Date 08/28/24 Medications Discharge medications reviewed and reconciled from hospital? Yes Appointments Self Management Patient Teaching Wrap Up Wrap Up Additional Comments appt 09/04/2024 SUBJECTIVE: See medication list at the end of the note. Allergies Allergen Reactions Latex Rash Other Reaction(s): Unknown If on for long periods of time Vancomycin Hives Other Reaction(s): Unknown Other reaction(s): Unknown Haloperidol Anxiety Ontonagon Oil GI intolerance Runny nose, watery eyes [...] 5,000 UNITS TABLET Daily. CONTINUOUS BLOOD GLUC SIGNAL CONSTRUCTOR (DEXCOM G7 SIGNAL CONSTRUCTOR) DEVICE 1 (one) time each day at [...] with the patient today. documented in this encounterTenet St. LouisVzmukamfyk87-68-0739 Telephone encounter Note* Telephone Encounter - Gretchen Freitasnathaniel - 09/01/2024 8:04 AM EST Copied from [facility] #[id number]. Topic: Clinical Support >> Aug 31, 2024 12:54 PM Jennifer Bone wrote: called in stating that he was seen at [facility] ER for his leg, but they refused to treat his leg, they gave him an ibuprofen and sent him home, but the thinks his right leg may be infected. Shewas advised to go to Urgent Care or ER but she will not go back to [facility]. She wanted to let Dr Emerson know what is going on and to advise what to do. [facility] LouisMmwkoxkrce56-44-8506 Miscellaneous Notes* Telephone Encounter - Gretchen Camachoying - 09/01/2024 8:04 AM EST Copied from [facility] #[id number]. Topic: Clinical Support >> Aug 31, 2024 12:54 PM Jennifer Bone wrote: called in stating that he was seen at [facility] ER for his leg, but they refused to treat his leg, they gave him an ibuprofen and sent him home, but the thinks his right leg may be infected. Shewas advised to go to Urgent Care or ER but she will not go back to [facility]. She wanted to let Dr Emerson know what is going on and to advise what to do. documented in this encounterTenet St. LouisSkribclphs77-94-7460 NotePatient: Evans Ac Forte Procedure Summary Date: 08/22/24 Room / Location: [facility] OPERATING ROOM 05 / [facility] Operating Room Anesthesia Start: 155 Anesthesia Stop: 1728 Procedure: EXCISIONAL RIGHT GROIN LYMPH NODE BIOPSY [...] 18 08/22/24 1741 SpO2 99 % 08/22/24 174 Anesthesia Post Evaluation Patient location during evaluation: [...] PACU per anesthesia protocol. No notable events documented.[facility]12-17-2024 Note Patient: Evans Forte Procedure Information Date/Time: 08/22/24 1545 Procedure: EXCISIONAL RIGHT GROIN LYMPH NODE BIOPSY (Right: Groin) - PATIENT HAS APPT IN THE [facility] AT 11, CASE WILL FOLLOW HIS OTHER APPT AND THE [facility], MAKE SURE TO GETN CONSENT PRIOR PER CT Location: [facility] OPERATING ROOM 05 / [facility] Operating Room Surgeons: Erick Carter MD [...] in the morning. 02/10/23 Yes Historical Provider, MD carvedilol (Coreg) 12.5 mg tablet Take 12.5 [...] breakfast. Yes Historical Prov (more content not included)...[facility]12-17-2024 NoteSedation Preparation Pre Procedure Evaluation Pre Procedure Evaluation: H&P was reviewed and the patient was examined. No change has occurred in the patient's condition since the H&P has been completed. ASA Score ASA: 3 Mallampati Mallampati: III Informed Consent Sedation Plan and Risks Explained: PatientUnAkron Children's Hospital 08-22-2024 NotePlease let path know to add NGS for mds and myeloid with hypercellular marrow Thanks Sivan Keller MDUnAkron Children's Hospital12-17-2024 NoteProcedure: CT-guided bone marrow biopsy and bone marrow aspiration Staff: Esme Resident: Marquise Contrast: None Complications: None Medications: Versed 2 mg iv. Fentanyl 100 mcg iv. Moderate sedation was monitored by the interventional radiology nursing staff. Total sedation time of 20 minutes Indication: Concern for lymphoma, staging Procedure: Using CT guidance, the [employer] system was used to perform bone marrow [...] marrow aspirate and biopsy. Electronically signed: Jey Chester VldtdUniOhioHealth12-03-2024 NoteSubjective Patient ID: Evans Forte is a [...] skull base to mid thigh FDG Order: [id number] Status: Final result Visible to patient: Yes (seen) Dx: Enlarged lymph nodes; Pre-transplant ... 0 Result Notes Details Reading Physician Reading Date Result Priority Alonso Jaffe MD [phone] 07/31/2024 Routine Narrative & Impression History: Pretransplant [...] CT abdomen pelvis wo renal recipient Order: [id number] Status: Edited Result - FINAL Visible to patient: Yes (seen) Dx: Pre-transplant evaluation for kidney ... 0 Result Notes Details Reading Physician Reading Date Result Priority Alonso Sampson MD [phone] 07/12/2024 Routine Addenda Addendum: Note that there [...] iliac arteries. No suspiciou (more content not included)...[facility] 08-08-2024 Note Attestation signed by Sivan [...] Results Component Value Date (more content not included)...[facility]12-02-2024 History of Present illness Narrative* Idania Ricketts, [...] Patient Active Problem List Diagnosis Acquired hypothyroidism ([facility]) Anxiety Dependence on renal dialysis ([facility]) End stage renal disease ([facility]) Essential hypertension ([facility]) Non-pressure chronic ulcer of other part of right foot with unspecified severity ([facility]) Obstructive sleep apnea syndrome Peripheral vascular disease ([facility]) Insomnia Pure hypercholesterolemia ([facility]) Type 2 diabetes mellitus with foot ulcer ([facility]) 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 ([facility]) Vitamin D deficiency Type 2 diabetes mellitus with ESRD (end-stage renal disease) ([facility]) Type 2 diabetes mellitus with peripheral neuropathy ([facility]) 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, with long-term current use of insulin ([facility]) Long-term insulin use ([facility]) Class 3 severe obesity due to excess calories with serious comorbidity and body mass index (BMI) of40.0 to 44.9 in adult ([facility]) Hx of amputation of lesser toe, left ([facility]) ([facility]) Adenoma of left adrenal gland Chronic kidney disease with end stage renal disease on dialysis due to type 2 diabetes mellitus ([facility]) Erectile dysfunction Hypoglycemia due to type 2 diabetes mellitus ([facility]) Hypogonadism male Iron deficiency anemia Past history [...] Reaction(s): Unknown Other reaction(s): Unknown Haloperidol Anxiety Ontonagon Oil GI intolerance Runny nose, watery eyes [...] Essential hypertension (CMS/HCC) Obstructive sleep apnea syndrome - Primary Peripheral vascular disease (CMS/HCC) Pure hypercholesterolemia (CMS/HCC) Type 2 diabetes mellitus with Charcot's [...] diabetes mellitus with ESRD (end-stage renal disease) ([facility]) Type 2 diabetes mellitus with peripheral neuropathy ([facility]) 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, with long-term current use of insulin ([facility]) Long-term insulin use ([facility]) Class 3 severe obesity due to excess calories with serious comorbidity and body mass index (BMI) of40.0 to 44.9 in adult ([facility]) Hx of amputation of lesser toe, left ([facility]) ([facility]) Chronic kidney disease with end stage renal disease on dialysis due to type 2 diabetes mellitus ([facility]) Other Visit Diagnoses Inguinal adenopathy Will [...] 5,000 UNITS TABLET Daily. CONTINUOUS BLOOD GLUC SIGNAL CONSTRUCTOR (DEXCOM G7 SIGNAL CONSTRUCTOR) DEVICE 1 (one) time each day at [...] with the patient today. documented in this encounterTenet St. LouisDevyjdbpmb87-84-0237 NoteLeft message to call office back and schedule with Dr Nguyen for enlarged lymph nodes per referralT[facility]11-21-2024 NotePatient: Evans Forte Procedure Information Date/Time: 07/27/2430 Procedures: Coronary angiography Right heart cath Location: [facility] 3 / [facility] (Cath) Providers: Pedro [...] who consented to blood products. 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 [facility]11-07-2024 NotePatient returned call to TC. Discussed with patient need for additional testing recommended from CT abdomen and pelvis performed 07/11/24. Informed patient evaluating surgeon would like patient to obtain PET CT. Patient states okay to place order at [facility]. Order placed and mailed to patient. Melinda Hidalgo, RNUnAkron Children's Hospital11-05-2024 NoteI saw the patient in clinic. [...] and patient financial responsibility forms they signed. [facility]11-05-2024 NoteCoordinator met with patient for re-evaluation appointment today in the Transplant clinic. Patient watched the transplant education video. Reviewed transplant process and consents with patient. Answered patient questions. Social work, finance and tobacco buyer in to see patient for review. Dr. Russell in for H&P and review of transplant plan. Dr. Moreland in for surgical evaluation. Coordinator provided copy of plan to patient and reviewed it with them. Patient aware further testing needed and to keep transplant team updated. Understanding verbalized by patient. Sent patient for labs, EKG & CXR today. Service Worker Helper provided patient TE folder with education on various transplant consents, the workup process, surgery details, postop expectations, transplant statistics, and living donor information. Answered patient questions and verified understanding. Melinda Hidalgo, JACOBToledo Hospital11-05-2024 NotePre- Transplant Evaluation Nephrology Consult Chief Complaint Patient presents with Kidney Eval PCP: Idania Ricketts DO Txp Referring: Ada Uriostegui Preferred Pharmacy: [id number] [phone] Organ: Kidney Subjective Visit Vitals BP 134/69 [...] Other reaction(s): Unknown Adhesive Rash Haloperidol Anxiety Ontonagon Oil GI intolerance Runny nose, watery eyes Medication Documentation Review Audit Reviewed by Sita Danielson MA (Baby Nurse) on 07/11/24 at 0808 Medication Order Taking? Sig Documenting Provider Last Dose Status anastrozole (Arimidex) 1 mg chemo tablet [id number] Yes Take 1 tablet (1 mg total) by mouth in the morning Swallow whole with a drink of water. Adams Tate NP Taking Active aspirin 81 mg chewable tablet [id number] Yes Chew 1 tablet (81 mg) in the morning. Pedro Alvarez MD Taking Active atorvastatin (Lipitor) 20 mg tablet [id number] Yes Take 1 tablet every day by oral route. Zia Harden MD Taking Active b complex 0.4 mg tablet [id number] Yes Take 1 tablet by mouth in the morning and at bedtime. Zia Harden MD Taking Active calcitriol (Rocaltrol) 0.25 mcg capsule [id number] Yes Take 0.25 mcg by mouth in the morning. Zia Harden MD Taking Active calcium acetate (Phoslo) 667 mg capsule [id number] Yes take 2 capsules by mouth with meals three times a day then take 1... (REFER TO PRESCRIPTION NOTES). Zia Harden MD Taking Active carvedilol (Coreg) 12.5 mg tablet [id number] Yes Take 12.5 mg by mouth with breakfast and with evening meal. Zia Harden MD Taking Active cholecalciferol (D3-5) 5,000 Units tablet [id number] Yes Take 1 tablet every day by oral route. Zia Harden MD Taking Active furosemide (Lasix) 80 mg tablet [id number] Yes Take 80 mg by mouth two times daily. Zia Harden MD Taking Active insulin glargine (Lantus) 100 unit/mL injection vial [id number] Yes Inject 60 Units under the skin in the morning. Zia Harden MD Taking Active insulin lispro (HUMALOG KWIKPEN INSULIN SUBQ) [id number] Yes Inject 10 Units under the skin with breakfast, with lunch, and with evening meal. Zia Harden MD Taking Active levothyroxine (Synthroid, Levoxyl) 100 mcg tablet [id number] Yes Take 1 tablet every day by oral route. Zia Harden MD Taking Active polyethylene glycol (GoLYTELY) 236-22.74-6.74 -5.86 gram solution [id number] For day 2 of 2 day prep Ermias Goodrich NP Active polyethylene glycol (GoLYTELY) 236-22.74-6.74 -5.86 gram solution [id number] No For day 1 of 2 day prep Patient not taking: Reported on 07/11/2024 Ermias Goodrich NP Not Taking Flag for Review tadalafil (Cialis) 20 mg tablet [id number] Take 1 tablet (20 mg) by mouth if needed each day for erectile dysfunction. Adams Tate NP 04/27/23 7704 testosterone 1.62 % (20.25 mg/1.25 gram) gel in packet [id number] Yes APPLY 1 PACKET DIRECTED ONCE DAILY [...] of left foot Type 2 diabetes mellitus ([facility]/HCC) Charcot's joint of foot Essential hypertension Acquired hypothyroidism Hyperlipidemia Vitamin D deficiency Libido, decreased Erectile dysfunction Hypogonadism male Diabetic neuropathic arthropathy ([facility]/HCC) Diabetic neuropathy ([facility]) End stage renal disease ([facility]) Glaucoma Hypoglycemia due to type 2 diabetes mellitus ([facility]) Iron deficiency anemia 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, 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, trunk FCI current use of insulin ([facility]) Microalbuminuria Mild left ventricular systolic dysfunction Morbid obesity ([facility]) Obstructive sleep apnea syndrome Osteomyelitis ([facility]/HCC) Polyneuropathy due to type 2 diabetes mellitus ([facility]/HCC) Ulcer of right foot with fat layer exposed ([facility]) Pure hypercholesterolemia Disorder of adrenal gland ([facility]/HCC) Type 2 diabetes mellitus with 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 edema, unspecified eye ([facility]) Peripheral vascu (more content not included)...[facility]11-05-2024 NotePre-Transplant Kidney Evaluation Surgery Consultation PCP: DO Ross Dhillon Referring: Ada Uriostegui Preferred Pharmacy: [id number] [address] [facility] [address] [place] [phone] Organ: Kidney Subjective Visit Vitals BP 134/69 [...] Other reaction(s): Unknown Adhesive Rash Haloperidol Anxiety Ontonagon Oil GI intolerance Runny nose, watery eyes Medication Documentation Review Audit Reviewed by Sita Danielson MA (Baby Nurse) on 07/11/24 at 0808 Medication Order Taking? Sig Documenting Provider Last Dose Status anastrozole (Arimidex) 1 mg chemo tablet [id number] Yes Take 1 tablet (1 mg total) by mouth in the morning Swallow whole with a drink of water. Adams Tate NP Taking Active aspirin 81 mg chewable tablet [id number] Yes Chew 1 tablet (81 mg) in the morning. Pedro Alvarez MD Taking Active atorvastatin (Lipitor) 20 mg tablet [id number] Yes Take 1 tablet every day by oral route. Zia Harden MD Taking Active b complex 0.4 mg tablet [id number] Yes Take 1 tablet by mouth in the morning and at bedtime. Zia Harden MD Taking Active calcitriol (Rocaltrol) 0.25 mcg capsule [id number] Yes Take 0.25 mcg by mouth in the morning. Zia Harden MD Taking Active calcium acetate (Phoslo) 667 mg capsule [id number] Yes take 2 capsules by mouth with meals three times a day then take 1... (REFER TO PRESCRIPTION NOTES). Zia Harden MD Taking Active carvedilol (Coreg) 12.5 mg tablet [id number] Yes Take 12.5 mg by mouth with breakfast and with evening meal. Zia Harden MD Taking Active cholecalciferol (D3-5) 5,000 Units tablet [id number] Yes Take 1 tablet every day by oral route. Zia Harden MD Taking Active furosemide (Lasix) 80 mg tablet [id number] Yes Take 80 mg by mouth two times daily. Zia Harden MD Taking Active insulin glargine (Lantus) 100 unit/mL injection vial [id number] Yes Inject 60 Units under the skin in the morning. Zia Harden MD Taking Active insulin lispro (HUMALOG KWIKPEN INSULIN SUBQ) [id number] Yes Inject 10 Units under the skin with breakfast, with lunch, and with evening meal. Historical Provider, Taking Active levothyroxine (Synthroid, Levoxyl) 100 mcg tablet [id number] Yes Take 1 tablet every day by oral route. Historical Provider, Taking Active polyethylene glycol (GoLYTELY) 236-22.74-6.74 -5.86 gram solution [id number] For day 2 of 2 day prep Ermias Goodrich NP Active polyethylene glycol (GoLYTELY) 236-22.74-6.74 -5.86 gram solution [id number] No For day 1 of 2 day prep Patient not taking: Reported on 07/11/2024 Ermias Goodrich NP Not Taking Flag for Review tadalafil (Cialis) 20 mg tablet [id number] Take 1 tablet (20 mg) by mouth if needed each day for erectile dysfunction. Adams Tate NP 04/27/23 9624 testosterone 1.62 % (20.25 mg/1.25 gram) gel in packet [id number] Yes APPLY 1 PACKET DIRECTED ONCE DAILY [...] of left foot Type 2 diabetes mellitus ([facility]/HCC) Charcot's joint of foot Essential hypertension Acquired hypothyroidism Hyperlipidemia Vitamin D deficiency Libido, decreased Erectile dysfunction Hypogonadism male Diabetic neuropathic arthropathy ([facility]) Diabetic neuropathy ([facility] End stage renal disease ([facility]) Glaucoma Hypoglycemia due to type 2 diabetes mellitus ([facility]) Iron deficiency anemia 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, 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, trunk FCI current use of insulin ([facility]) Microalbuminuria Mild left ventricular systolic dysfunction Morbid obesity (CMS/HCC) Obstructive sleep apnea syndrome Osteomyelitis (CMS/HCC) Polyneuropathy due to type 2 diabetes mellitus (CMS/HCC) Ulcer of right foot with fat layer exposed (CMS/HCC) Pure hypercholesterolemia Disorder of adrenal gland (CMS/HCC) Type 2 diabetes mellitus with 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 edema, unspecified eye (CMS/HCC) Peripheral vas (more content not included)...[facility] 07-11-2024 NoteTransplant Nutrition Assessment Name: Evans [...] years, intentional with diet changes. Food Allergy: Ontonagon seeds Current diet: Renal diet. No supplements . High protein and vegetables. Nutrition/Diet: Most meals eaten at home. Diabetes Management: 60 units lantus and humalog 10units TID. Checks blood sugars often (has a dexcom). A1C 6.3% Diet Recall Breakfast: Skips on dialysis days or has eggs. Lunch: [place] or a salad. Dinner: Variety of meats, [...] reviewed diet changes to expect post transplant. [facility]24 [id number] Evans Forte 1970 M Date Provider Department [...] Grandmother Daughter Father's Brother Alive Level of Service:94479 NH OFFICE/OUTPATIENT ESTABLISHED HIGH MDM 40 MIN Reason for Visit and Comments: Kidney Eval [[id number]][facility]11-05-2024 Note Identifying Information Name: Evans Forte : 1970 Assessment date: 07/11/2024 Transplant type: Kidney Transplant Evaluation - 10/12/2019 Primary language: Bahamian Islam/spirituality: Amish People present at assessment: sister Caryn Carroll Do you have any hoahaoism, ethical or personal objections to accepting blood products, surgery and/or transplant? No Citizenship Where were you born? In the [place] [facility] Where do you currently live or are staying? [facility] Is this greater than 3-[address] [facility]? No. 1 Hour Family Background and Supportive Relationships Mother: COD: Breast Cancer with mets to brain. Father: COD: Heart attack Siblings: 1 sister: Caryn Healthy Children: Biological Number of children, living or (UNOS question): 1 Names, age, health status, relationship, address: Teresa, Shankar, healthy, [place], daughter. Marital/relationship status: for 30 years Household composition: Patient, , step-grandaughter. Are there any current or past significant life changes or traumatic events? No Support / Caregiver Plans Who will be your primary caregiver? 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 Who will be your secondary caregiver(s)? sibling Contact #: Caryn [phone] Health status & availability: Healthy, doesn't work, [...] type of work do you/did you do? [employer]. Date of last employment: April 2022 What are your thoughts about returning to work after transplant? Some form a of work. 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 Disability Are you on any [...] Subscriber Name Rel Member # Group # [facility] - U* EVANS FORTE Self [id number] [address] [address] [facility]* EVANS FORTE Self [id number] [address] [address] Are you aware of a coordination of benefits with your insurance and Medicare (if applicable)? no- mailing Medicare and ESRD info to patient. Are you receiving assistance through [employer] [facility] JANICE Program: No Medication Coverage [...] 03/06/2023 Peritoneal [facility] Information [facility] Address: [address] [place] [address] [address] Dialysis Schedule: MWF, 5:30AM, 4H15M, a [...] HD diet, p (more content not included)... [facility]10-24-2024 History of Present illness Narrative* Gi [...] 5. RTC: 2-3 weeks[address] encounterTen[address]. LouisKebjhkwnlu81-13-9012 NoteUT Cardiology - [facility] Subjective Evans [...] anemia 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, 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, trunk FCI current use of insulin (CMS/HCC) Microalbuminuria Mild [...] cooperative. Judgment: Judgment normal. (more content not included)...[facility]10-15-2024 NotePatient: Evans Forte Procedure Summary Date: 06/20/24 Room / Location: [facility] Anesthesia Start: 1056 Anesthesia Stop: 1201 Procedure: [...] PACU per anesthesia protocol. No notable events documented.[facility]10-15-2024 Note Patient: Evans Forte Procedure Information Date/Time: 06/20/24 1200 Scheduled providers: Anya Henley MD; Vinay Avila MD Procedure: SURVEILLANCE COLONOSCOPY Location: [facility] Relevant Problems Anesthesia (+) Obstructive sleep apnea [...] products. Plan discussed with resident. Additional Equipment RequestsUnAkron Children[facility] Hospital10-08-2024 Note Medication resent to patients preferred pharmacy as requested.[facility]10-03-2024 History of Present illness Narrative* Gi [...] 5. RTC: 2-3 weeks[address]Ten[address] LouisKfoglqjbio86-86-5353 Telephone encounter Note* Telephone Encounter - Gi Mondragon DPM - 05/31/2024 2:20 PM EDT Refill request was approved. Prescription was sent to his preferred pharmacy. [facility] St[facility] LouisHgpoxnfrgg89-95-6199 Miscellaneous Notes* Telephone Encounter - Gi Mondragon DPM - 05/31/2024 2:20 PM EDT Refill request was approved. Prescription was sent to his preferred pharmacy. * Telephone Encounter - Sophia Martini MA - 05/30/2024 2:02 PM EDT Patient called and stated that he would like a refill of Pregabalin. Please advise, thank you. documented in this encounterTenet St. LouisStsqupcxjy69-00-3051 Telephone encounter Note* Telephone Encounter - Sophia Martini MA - 05/30/2024 2:02 PM EDT Patient called and stated that he would like a refill of Pregabalin. Please advise, thank you. Tenet St. LouisYnimxemmoi78-09-2018 NoteSubjective Patient ID: Evans Forte is a 54 y.o. male who presents for Follow-up (Lab results ). HPI 05.26.24 Pt here for office visit with his . Pt established with Dr Clay for hypogonadism, ED and pending Renal Transplant list. Pt is having wound care to right foot at this time. ESRD treated with Dialysis 3 x week locally in [place]. Pt labs reviewed: T Levels: 05/23/24 373 [...] Order fax to [facility]. 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 No CP or SOB. No N/V/D. No abd/flank pain. Pt continues with better level of fatigue. CKD with ESRD 2/2 DM on Dialysis: [facility] in [place]. Plan: Follow up Trimix Trial with Meds. 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 Urination: - amount of urine made: [...] - any previous fertility (more content not included)...[facility]09-12-[facility] History of Present illness Narrative* Gi [...] boot for offloading/pressure reduction. Patient does have [facility] for dressing changes. Encouraged him to [...] 5. RTC: 2 weeks. [address] in [address] encounterTenet St. LouisZbgcyviqor34-10-0993 History of Present illness Narrative* Idania Ricketts [...] presents with chief complaint of Anxiety HPI: HPI Insurance will no longer cover Lyrica- wondering if he can be put back on gabapentin. Pt here for anxiety Went to [facility] ER last night d/t panic attack. Was prescribed Ativan Filled Ativan last night and took one dose last night. Pt states Ativan did help. [facility] will becontacting him to scheduled appt with [...] Reaction(s): Unknown Other reaction(s): Unknown Haloperidol Anxiety Ontonagon Oil GI intolerance Runny nose, watery eyes [...] 5,000 UNITS TABLET Daily. CONTINUOUS BLOOD GLUC SIGNAL CONSTRUCTOR (DEXCOM G7 SIGNAL CONSTRUCTOR) DEVICE 1 (one) time each day at [...] with the patient today. documented in this encounterTenet St. LouisNpsubwcffy64-64-8165 History of Present illness Narrative* Gi Mondragon [...] 5. RTC: 2 weeks. documented in [address] encounterTenet St. LouisPpqocwbzxn93-46-9234 NotePatient LVM for TC asking inquiring about scheduling transplant re-evaluation and orders for updated stress test and colonoscopy. TC LVM for patient to discuss available dates and times and if he wants to complete the stress and colonoscopy here at [facility] or locally in [place]. Awaiting response.[facility]08-22-2024 Telephone encounter Note* Telephone Encounter - Melinda Dailey LPN - 04/27/2024 2:01 PM EDT Pt was on mounjaro 7.5 and it was unavailable and was switched to ozepmic 2mg. Pt states he is not losing weight and would like to go back to mounjaro. Okay to send in? [facility] St[facility] LouisWofhczymow66-51-8609 Miscellaneous Notes* Telephone Encounter - Melinda Dailey [...] asking for Mounjaro 7.5mg documented in this encounterTenet St. LouisVrsviahxew23-07-4073 Telephone encounter Note* Telephone Encounter - Anayeli Mack LPN - 04/26/2024 4:00 PM EDT LVM that insurance will no long pay for novolog and asking for alternative. Also asking for Mounjaro 7.5mg [facility] LouisEybckqplib42-97-6050 Progress note Author Gi Mondragon [facility] November 23, 2023 3:53pm Note Date/Time November 23, 2023 3:5 3pm [facility] [address] [place] [address] Podiatry Progress Note Signed Patient: Evans Forte MR#: [id number] : 1970 Acct:[id number] Age/Sex: 53 / M Adm Date: 4 Loc: Room: [address] [place] [address] Type: ADM IN Attending Dr: Amy Escudero DO Copies to: ~ Subjective Subjective Date of Service: Date of Service: 11/23/2023 Time of Service: 15:51 Narrative: Mr. Forte is a 53 year old male who was admitted due to symptoms of sepsis. Patient has a large ulceration on the bottom of the right great toe and heel. He has been following with a manufacturing plant technician and family. Patient states that the ulcerations [...] large hyperkeratosis. Patient will follow-up with his manufacturing plant technician and family for further wound care. Discussed [...] <Electronically signed by TIARA Mondragon> 11/23/23 [address] [facility] Work Phone: 1(281) 119-199903-19-2024 Consult note Author Gi Mondragon [facility] November 23, 2023 3:51pm Note Date/Time November 22, 2023 5:3 0pm [facility] [address] [place] [address] Podiatry Consult Note Signed Patient: Evans Forte MR#: [id number] : 1970 Acct:[id number] Age/Sex: 53 / M Adm Date: 4 Loc: Room: [address] [place] [address] Type: ADM IN Attending Dr: Amy Escudero [...] heel. He has been following with a manufacturing plant technician and family. Patient states that the ulcerations [...] noted below or in HPI [facility] Medical History (Updated 11/23/23 @ 10:16 by [...] 2 Surgical History History of cardiac catheterization [facility] History of orthopedic surgery right foot has [...] By: <Electronically signed by TIARA Mondragon> 11/23/23 1444 [facility] Work Phone: 1(272) 916-935103-19-2024 Progress note Author Amy Escudero [facility] November 24, 2023 1:40pm Note Date/Time November 23, 2023 1:0 3pm [facility] [address] [place], [place] [id number] Hospitalist Progress Note Signed Patient: Evans Forte MR#: [id number] : 1970 Acct:[id number] Age/Sex: 53 / M Adm Date: 4 Loc: 3T Room: [address] [place] [address] Type: DIS IN Attending Dr: Amy Escudero [...] 0.25 Mcg Capsule PO 11/22/24 08:59 TuThSa@0900 [facility] Calcium Acetate 2,668 mg 11/21/23 07:30 11/23/23 08:52 Calcium Acetate 667 Mg Capsule PO 11/20/24 07:29 Not Given AC VINCE Carvedilol 6.25 mg 11/22/23 13:30 11/23/23 08:53 Carvedilol 6.25 Mg Tablet PO 11/21/24 13:29 Not Given BID [facility] Cyanocobalamin 1,000 mcg 11/21/23 09:00 11/22/23 08:13 Cyanocobalamin 1,000 Mcg Tablet PO 11/20/24 08:59 1,000 mcg DAILY [facility] Administration Darbepoetin Zechariah 25 mcg 11/23/23 09:30 11/23/23 11:47 Darbepoetin Zechariah In Polysorbat 25 Mcg/Ml Vial IV-PUSH 11/22/24 09:29 25 mcg Tu@0930 [facility] Administration Protocol Furosemide 80 mg 11/22/23 16:00 11/23/23 08:52 Furosemide 80 Mg Tablet PO 11/21/24 15:59 Not Given BID@0800,1600 [facility] Heparin Sodium (Porcine) 5,000 unit 11/21/23 09:00 11/23/23 08:53 Heparin 5,000 Unit/Ml Vial SUBCUT 11/20/24 08:59 Not Given Q12HR [facility] Heparin Sodium (Porcine) 2,000 unit 11/23/23 09:20 [...] Insuln.Pen SUBCUT 11/20/24 16:29 Not Given ACHS [facility] Protocol Insulin Human Regular 50 unit 11/21/23 [...] SUBCUT 11/29/24 08:59 Ml Pen Injector Tu@0900 [facility] Ondansetron HCl 4 mg 11/20/23 21:03 Ondansetron [...] signed by Amy Escudero DO> 11/24/23 [address] [facility] Work Phone: 1(896) 575-950303-19-2024 Progress note Author Ada Uriostegui [facility] November 23, 2023 12:09pm Note Date/Time November 23, 2023 10: 34am [facility] [address] [place] [address] Nephrology Progress Note Signed Patient: Evans Forte MR#: [id number] : 1970 Acct:[id number] Age/Sex: 53 / M Adm Date: 4 Loc: Room: 2R4659-7 Type: ADM IN Attending Dr: Amy Escudero DO Copies to: ~ Date of Service: 11/23/2023 Subjective Subjective Narrative: This is a 53-year-old male patient with a past medical history of hypertension, hyperlipidemia, end-stage renal disease on TTS hemodialysis schedule at [facility], insulin-dependent diabetes mellitus, obstructive sleep apnea, [...] Skin: No rashes , warm to touch 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: Awake,Alert, following simple command Musculoskeletal: No joint [...] 1 Mg Tablet) 1 mg PO QAM [facility] Stop: 11/20/24 08:59 Last Admin: 11/22/23 08:14 Dose: 1 mg Atorvastatin Calcium (Atorvastatin 20 Mg Tablet) 20 mg PO QAM [facility] Stop: 11/20/24 08:59 Last Admin: 11/22/23 08:13 Dose: 20 mg Calcitriol (Calcitriol 0.25 Mcg Capsule) 0.25 mcg PO TuThSa@0900 [facility] Stop: 11/22/24 08:59 Calcium Acetate (Calcium Acetate 667 Mg Capsule) 2,668 mg PO AC [facility] Stop: 11/20/24 07:29 Last Admin: 11/23/23 08:52 Dose: Not Given Carvedilol (Carvedilol 6.25 Mg Tablet) 6.25 mg PO BID [facility] Stop: 11/21/24 13:29 Last Admin: 11/23/23 08:53 Dose: Not Given Cyanocobalamin (Cyanocobalamin 1,000 Mcg Tablet) 1,000 mcg PO DAILY [facility] Stop: 11/20/24 08:59 Last Admin: 11/22/23 08:13 Dose: 1,000 mcg Darbepoetin Zechariah (Darbepoetin Zechariah In Polysorbat 25 Mcg/Ml Vial) 25 mcg IV-PUSHTu@0930 [facility]; Protocol Stop: 11/22/24 09:29 Furosemide (Furosemide 80 Mg Tablet) 80 mg PO BID@0800,1600 [facility] Stop: 11/21/24 15:59 Last Admin: 11/23/23 08:52 Dose: Not Given Heparin Sodium (Porcine) (Heparin 5,000 Unit/Ml Vial) 5,000 unit SUBCUT Q12HR [facility] Stop: 11/20/24 08:59 Last Admin: 11/23/23 08:53 [...] 300 mls @ 300 mls/hr IV Q12H [facility] Last Admin: 11/22/23 21:02 Dose: 300 mls/hr Ceftriaxone Sodium (Rocephin) 2 gm in 50 mls @ 100 mls/hr IV Q24H [facility] Last Admin: 11/22/23 19:25 Dose: 100 mls/hr Sodium Chloride (0.9% Sodium Chloride 1,000 Ml) 1,000 mls @ 0 mls/hr MISCELLANE.Q0M PRN PRN Reason: Dialysis Stop: 11/22/24 09:19 Last Infusion: 11/23/23 09:43 Dose: Infused Insulin Aspart (Insulin Aspart 300 Units/3 Ml Insuln.Pen) 0 units SUBCUT ACHS [facility]; Protocol Stop: 11/20/24 16:29 Last Admin: 11/23/23 08:52 Dose: Not Given Insulin Human Regular (Insulin Regular U-500, Human 1,500 Unit/3 Ml Insuln.Pen) 50 unit SUBCUT BID [facility] Stop: 11/20/24 08:59 Last Admin: 11/23/23 08:53 Dose: Not Given Levothyroxine Sodium (Levothyroxine 100 Mcg Tablet) 100 mcg PO DAILY.0630 [facility] Stop: 11/20/24 06:29 Last Admin: 11/23/23 05:38 [...] Gel In Packet 1 packet TRANSDERML DAILY [facility] Stop: 11/20/24 08:59 Last Admin: 11/23/23 08:53 Dose: Not Given Tirzepatide [ Mounjaro] 5 Mg/0.5 Ml Pen Injector 5 mg SUBCUT Tu@0900 [facility] Stop: 11/29/24 08:59 Ondansetron HCl (Ondansetron 4 Mg/2 Ml Vial) 4 mg IV-PUSH Q8H PRN PRN Reason: Nausea And Vomiting Stop: 11/19/24 21:02 Pregabalin (Pregabalin 50 Mg Capsule) 50 mg PO DAILY [facility]IN[facility] Stop: 05/21/24 08:59 Sodium Chloride (Sodium Chloride [...] diabetic nephropathy. Patient has been going to [facility] on TTS for hemodialysis. Last hemodialysis [...] <Electronically signed by Ada Uriostegui MD> 11/23/23 [address] [facility] Work Phone: 1([phone] 190-932203-19-2024 Progress note Author Chintan Hernández [facility] November 23, 2023 10:54am Note Date/Time November 23, 2023 10: 54am [facility] [address] [place] [address] Infect. Disease Progress Note Signed Patient: Evans Forte MR#: [id number] : 1970 Acct:[id number] Age/Sex: 53 / M Adm Date: 4 Loc: 3T Room: [address] [place] [address] Type: ADM IN Attending Dr: Amy Escudero [...] 1 Mg Tablet) 1 mg PO QAM [facility] Stop: 11/20/24 08:59 Last Admin: 11/22/23 08:14 Dose: 1 mg Atorvastatin Calcium (Atorvastatin 20 Mg Tablet) 20 mg PO QAM [facility] Stop: 11/20/24 08:59 Last Admin: 11/22/23 08:13 Dose: 20 mg Calcitriol (Calcitriol 0.25 Mcg Capsule) 0.25 mcg PO TuThSa@0900 [facility] Stop: 11/22/24 08:59 Calcium Acetate (Calcium Acetate 667 Mg Capsule) 2,668 mg PO AC [facility] Stop: 11/20/24 07:29 Last Admin: 11/23/23 08:52 Dose: Not Given Carvedilol (Carvedilol 6.25 Mg Tablet) 6.25 mg PO BID [facility] Stop: 11/21/24 13:29 Last Admin: 11/23/23 08:53 Dose: Not Given Cyanocobalamin (Cyanocobalamin 1,000 Mcg Tablet) 1,000 mcg PO DAILY [facility] Stop: 11/20/24 08:59 Last Admin: 11/22/23 08:13 Dose: 1,000 mcg Darbepoetin Zechariah (Darbepoetin Zechariah In Polysorbat 25 Mcg/Ml Vial) 25 mcg IV-PUSHTu@0930 [facility]; Protocol Stop: 11/22/24 09:29 Furosemide (Furosemide 80 Mg Tablet) 80 mg PO BID@0800,1600 [facility] Stop: 11/21/24 15:59 Last Admin: 11/23/23 08:52 Dose: Not Given Heparin Sodium (Porcine) (Heparin 5,000 Unit/Ml Vial) 5,000 unit SUBCUT Q12HR [facility] Stop: 11/20/24 08:59 Last Admin: 11/23/23 08:53 [...] 300 mls @ 300 mls/hr IV Q12H [facility] Last Admin: 11/22/23 21:02 Dose: 300 mls/hr Ceftriaxone Sodium (Rocephin) 2 gm in 50 mls @ 100 mls/hr IV Q24H [facility] Last Admin: 11/22/23 19:25 Dose: 100 mls/hr Sodium Chloride (0.9% Sodium Chloride 1,000 Ml) 1,000 mls @ 0 mls/hr MISCELLANE.Q0M PRN PRN Reason: Dialysis Stop: 11/22/24 09:19 Last Infusion: 11/23/23 09:43 Dose: Infused Insulin Aspart (Insulin Aspart 300 Units/3 Ml Insuln.Pen) 0 units SUBCUT ACHS [facility]; Protocol Stop: 11/20/24 16:29 Last Admin: 11/23/23 08:52 Dose: Not Given Insulin Human Regular (Insulin Regular U-500, Human 1,500 Unit/3 Ml Insuln.Pen) 50 unit SUBCUT BID [facility] Stop: 11/20/24 08:59 Last Admin: 11/23/23 08:53 Dose: Not Given Levothyroxine Sodium (Levothyroxine 100 Mcg Tablet) 100 mcg PO DAILY.0630 [facility] Stop: 11/20/24 06:29 Last Admin: 11/23/23 05:38 [...] Gel In Packet 1 packet TRANSDERML DAILY [facility] Stop: 11/20/24 08:59 Last Admin: 11/23/23 08:53 Dose: Not Given Tirzepatide [ Mounjaro] 5 Mg/0.5 Ml Pen Injector 5 mg SUBCUT Tu@0900 [facility] Stop: 11/29/24 08:59 Ondansetron HCl (Ondansetron 4 Mg/2 Ml Vial) 4 mg IV-PUSH Q8H PRN PRN Reason: Nausea And Vomiting Stop: 11/19/24 21:02 Pregabalin (Pregabalin 50 Mg Capsule) 50 mg PO DAILY [facility] Stop: 05/21/24 08:59 Sodium Chloride (Sodium Chloride [...] signed by MD Chintan Hernández> 11/23/23 [address] [facility] Work Phone: [phone] 900-167203-18-2024 Progress note Author Ada Uriostegui [facility] November 22, 2023 12:53pm Note Date/Time November 22, 2023 12: 53pm [facility] [address] [place] [address] Nephrology Progress Note Signed Patient: Evans Forte MR#: [id number] : 1970 Acct:[id number] Age/Sex: 53 / M Adm Date: 4 Loc: Room: [address] [place] [address] Type: ADM IN Attending Dr: Amy Escudero DO Copies to: ~ Date of Service: 11/22/2023 Subjective Subjective Narrative: This is a 53-year-old male patient with a past medical history of hypertension, hyperlipidemia, end-stage renal disease on TTS hemodialysis schedule at [facility], insulin-dependent diabetes mellitus, obstructive sleep apnea, [...] Skin: No rashes , warm to touch 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: Awake,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, following simple command Musculoskeletal: No joint [...] 1 Mg Tablet) 1 mg PO QAM [facility] Stop: 11/20/24 08:59 Last Admin: 11/22/23 08:14 Dose: 1 mg Atorvastatin Calcium (Atorvastatin 20 Mg Tablet) 20 mg PO QAM [facility] Stop: 11/20/24 08:59 Last Admin: 11/22/23 08:13 Dose: 20 mg Calcitriol (Calcitriol 0.25 Mcg Capsule) 0.25 mcg PO TuThSa@0900 [facility] Stop: 11/22/24 08:59 Calcium Acetate (Calcium Acetate 667 Mg Capsule) 2,668 mg PO AC [facility] Stop: 11/20/24 07:29 Last Admin: 11/22/23 11:21 Dose: 2,668 mg Carvedilol (Carvedilol 6.25 Mg Tablet) 6.25 mg PO BID [facility] Stop: 11/21/24 12:19 Cyanocobalamin (Cyanocobalamin 1,000 Mcg Tablet) 1,000 mcg PO DAILY [facility] Stop: 11/20/24 08:59 Last Admin: 11/22/23 08:13 Dose: 1,000 mcg Heparin Sodium (Porcine) (Heparin 5,000 Unit/Ml Vial) 5,000 unit SUBCUT Q12HR [facility] Stop: 11/20/24 08:59 Last Admin: 11/22/23 08:14 Dose: 5,000 unit Linezolid (Zyvox) 600 mg in 300 mls @ 300 mls/hr IV Q12H [facility] Last Admin: 11/22/23 08:58 Dose: 300 mls/hr Ceftriaxone Sodium (Rocephin) 2 gm in 50 mls @ 100 mls/hr IV Q24H [facility] Last Admin: 11/21/23 19:41 Dose: 100 mls/hr Insulin Aspart (Insulin Aspart 300 Units/3 Ml Insuln.Pen) 0 units SUBCUT [facility]; Protocol Stop: 11/20/24 16:29 Last Admin: 11/22/23 11:22 Dose: 2 units Insulin Human Regular (Insulin Regular U-500, Human 1,500 Unit/3 Ml Insuln.Pen) 50 unit SUBCUT BID [facility] Stop: 11/20/24 08:59 Last Admin: 03/18/24 08:16 Dose: 50 unit Levothyroxine Sodium (Levothyroxine 100 Mcg Tablet) 100 mcg PO DAILY.0630 [facility] Stop: 11/20/24 06:29 Last Admin: 11/22/23 05:29 [...] Gel In Packet 1 packet TRANSDERML DAILY [facility] Stop: 11/20/24 08:59 Last Admin: 11/22/23 11:21 Dose: Not Given Tirzepatide [ Mounjaro] 5 Mg/0.5 Ml Pen Injector 5 mg SUBCUT Tu@0900 [facility] Stop: 11/29/24 08:59 Ondansetron HCl (Ondansetron 4 Mg/2 Ml Vial) 4 mg IV-PUSH Q8H PRN PRN Reason: Nausea And Vomiting Stop: 11/19/24 21:02 Pregabalin (Pregabalin 150 Mg Capsule) 150 mg PO BID [facility] Stop: 05/19/24 08:59 Last Admin: 11/22/23 08:14 [...] Taqueria Reese M.D.11/21/2023 4:39 PM Dictation Location: [address] 11/22/23 07:00 IMPRESSION: NO HEMODYNAMICALLY SIGNIFICANT PERIPHERAL VASCULAR OCCLUSIVE DISEASE AT REST IN EITHER LOWER EXTREMITY. Impression dictated by: Ramirez Jean M.D.11/22/2023 10:09 AM Dictation Location: [place] [address] Any impression(s) listed above is documentation that [...] diabetic nephropathy. Patient has been going to [facility] on [facility] for hemodialysis. Last hemodialysis session was yesterday [...] signed by Ada Uriostegui MD> 11/22/23 [address] [facility] Work Phone: [phone] 972-704103-18-2024 Progress note Author Amy Escudero [facility] November 22, 2023 12:45pm Note Date/Time November 22, 2023 10: 37am [facility] [address] [place] [address] Hospitalist Progress Note Signed Patient: Evans Forte MR#: [id number] : 1970 Acct:[id number] Age/Sex: 53 / M Adm Date: 4 Loc: 3T Room: [address] [place] [address] Type: ADM IN Attending Dr: Amy Escudero [...] Insuln.Pen SUBCUT 11/20/24 16:29 Not Given ACHS [facility] Protocol Insulin Human Regular 50 unit 11/21/23 [...] TRANSDERML 11/20/24 08:59 Not Given Packet DAILY [facility] Tirzepatide [ 5 mg 11/30/23 09:00 Mounandrewro] 5 Mg/0.5 SUBCUT 11/29/24 08:59 Ml Pen Injector Tu@0900 [facility] Ondansetron HCl 4 mg 11/20/23 21:03 Ondansetron [...] signed by Amy Escudero DO> 11/22/23 12[address] [facility] Work Phone: [phone] 940-416803-18-2024 Consult note Author Chintan Hernández [facility] November 22, 2023 11:26am Note Date/Time November 22, 2023 11: 26am [facility] [address] [place] [address] Infect. Disease Consult Note Signed Patient: Evans Forte MR#: [id number] : 1970 Acct:[id number] Age/Sex: 53 / M Adm Date: 4 Loc: 3T Room: [address] [place] [address] Type: ADM IN Attending Dr: Amy Escudero DO Copies to: DO Chintan Dhillon MD Yazid Hussein, DO~ HPI Data of Consult Consult date: 11/22/23 Requesting Physician: Amy Escduero DO Primary Care Provider: Idania Ricketts DO [...] noted below or in HPI [facility] Medical History (Updated 11/22/23 @ 11:24 by [...] 2 Surgical History History of cardiac catheterization [facility] History of orthopedic surgery right foot has [...] 1 Mg Tablet) 1 mg PO QAM [facility] Stop: 11/20/24 08:59 Last Admin: 11/22/23 08:14 Dose: 1 mg Atorvastatin Calcium (Atorvastatin 20 Mg Tablet) 20 mg PO QAM [facility] Stop: 11/20/24 08:59 Last Admin: 11/22/23 08:13 Dose: 20 mg Calcitriol (Calcitriol 0.25 Mcg Capsule) 0.25 mcg PO TuThSa@0900 [facility] Stop: 11/22/24 08:59 Calcium Acetate (Calcium Acetate 667 Mg Capsule) 2,668 mg PO AC [facility] Stop: 11/20/24 07:29 Last Admin: 11/22/23 08:13 Dose: 2,668 mg Cyanocobalamin (Cyanocobalamin 1,000 Mcg Tablet) 1,000 mcg PO DAILY VINCE Stop: 11/20/24 08:59 Last Admin: 11/22/23 08:13 Dose: 1,000 mcg Heparin Sodium (Porcine) (Heparin 5,000 Unit/Ml Vial) 5,000 unit SUBCUT Q12HR [facility] Stop: 11/20/24 08:59 Last Admin: 11/22/23 08:14 Dose: 5,000 unit Linezolid (Zyvox) 600 mg in 300 mls @ 300 mls/hr IV Q12H [facility] Last Admin: 11/22/23 08:58 Dose: 300 mls/hr Ceftriaxone Sodium (Rocephin) 2 gm in 50 mls @ 100 mls/hr IV Q24H [facility] Last Admin: 11/21/23 19:41 Dose: 100 mls/hr Insulin Aspart (Insulin Aspart 300 Units/3 Ml Insuln.Pen) 0 units SUBCUT ACHS [facility]; Protocol Stop: 11/20/24 16:29 Last Admin: 11/22/23 08:13 Dose: Not Given Insulin Human Regular (Insulin Regular U-500, Human 1,500 Unit/3 Ml Insuln.Pen) 50 unit SUBCUT BID [facility] Stop: 11/20/24 08:59 Last Admin: 11/22/23 08:16 Dose: 50 unit Levothyroxine Sodium (Levothyroxine 100 Mcg Tablet) 100 mcg PO DAILY.0630 [facility] Stop: 11/20/24 06:29 Last Admin: 11/22/23 05:29 [...] Gel In Packet 1 packet TRANSDERML DAILY [facility] Stop: 11/20/24 08:59 Last Admin: 11/21/23 10:14 Dose: Not Given Tirzepatide [ Mounjaro] 5 Mg/0.5 Ml Pen Injector 5 mg SUBCUT Tu@0900 [facility] Stop: 11/29/24 08:59 Ondansetron HCl (Ondansetron 4 Mg/2 Ml Vial) 4 mg IV-PUSH Q8H PRN PRN Reason: Nausea And Vomiting Stop: 11/19/24 21:02 Pregabalin (Pregabalin 150 Mg Capsule) 150 mg PO BID [facility] Stop: 05/19/24 08:59 Last Admin: 11/22/23 08:14 [...] 600 ml @ 300 mls/hr IV Q12H [facility] Rx# :[id number] Output: Urine 100 / 100 Other: # [...] signed by MD Chintan Hernández> 11/22/23 [address] [facility] Work Phone: [phone] 240-779603-17-2024 Progress note Author Arnol Calloway [facility] November 21, 2023 5:52pm Note Date/Time November 21, 2023 11: 07am [facility] [address] [place] [address] Hospitalist Progress Note Signed Patient: Evans Forte MR#: Maeve [id number] : 1970 Acct:[id number] Age/Sex: 53 / M Adm Date: 4 Loc: 3T Room: [address] [place] [address] Type: ADM IN Attending Dr: Arnol Calloway [...] as neuropathy. Follows with Dr. Fonseca/podiatry in [place] but indicates has not had vascular studies [...] TRANSDERML 11/20/24 08:59 Not Given Packet DAILY [facility] Tirzepatide [ 5 mg 11/30/23 09:00 Mounjaro] 5 Mg/0.5 SUBCUT 11/29/24 08:59 Ml Pen Injector Tu@0900 [facility] Ondansetron HCl 4 mg 11/20/23 21:03 Ondansetron [...] Check prealbumin. Dietitian consult ESRD on hemodialysis Anemia of CKD Metabolic [...] <Electronically signed by Arnol Calloway MD> 11/21/23 [address] [facility] Work Phone: [phone] 158-232503-17-2024 Consult note Author Yocasta Villalba [facility] November 21, 2023 10:16am Note Date/Time November 21, 2023 10: 16am [facility] [address] [place] [address] Nephrology Consult Note Signed Patient: Evans Forte MR#: [id number] : 1970 Acct:[id number] Age/Sex: 53 / M Adm Date: 4 Loc: Room: [address] [place] [address] Type: ADM IN Attending Dr: Arnol Calloway [...] renal disease on TTS hemodialysis schedule at [facility], insulin-dependent diabetes mellitus, obstructive sleep apnea, [...] system review is negative today [facility] Medical History (Updated 11/21/23 @ 10:12 by [...] 2 Surgical History History of cardiac catheterization [facility] History of orthopedic surgery right foot has [...] 1 Mg Tablet) 1 mg PO QAM [facility] Stop: 11/20/24 08:59 Last Admin: 11/21/23 08:00 Dose: 1 mg Atorvastatin Calcium (Atorvastatin 20 Mg Tablet) 20 mg PO QAM [facility] Stop: 11/20/24 08:59 Last Admin: 11/21/23 08:00 Dose: 20 mg Calcitriol (Calcitriol 0.25 Mcg Capsule) 0.25 mcg PO TuThSa@0900 [facility] Stop: 11/22/24 08:59 Calcium Acetate (Calcium Acetate 667 Mg Capsule) 2,668 mg PO AC [facility] Stop: 11/20/24 07:29 Last Admin: 11/21/23 07:54 Dose: 2,668 mg Cyanocobalamin (Cyanocobalamin 1,000 Mcg Tablet) 1,000 mcg PO DAILY [facility] Stop: 11/20/24 08:59 Last Admin: 11/21/23 08:00 Dose: 1,000 mcg Heparin Sodium (Porcine) (Heparin 5,000 Unit/Ml Vial) 5,000 unit SUBCUT Q12HR [facility] Stop: 11/20/24 08:59 Last Admin: 11/21/23 08:00 Dose: 5,000 unit Linezolid (Zyvox) 600 mg in 300 mls @ 300 mls/hr IV Q12H [facility] Last Admin: 11/21/23 09:06 Dose: 300 mls/hr Ceftriaxone Sodium (Rocephin) 2 gm in 50 mls @ 100 mls/hr IV Q24H [facility] Insulin Human Regular (Insulin Regular U-500, Human 1,500 Unit/3 Ml Insuln.Pen) 50 unit SUBCUT BID [facility] Stop: 11/20/24 08:59 Last Admin: 11/21/23 08:00 Dose: 50 unit Levothyroxine Sodium (Levothyroxine 100 Mcg Tablet) 100 mcg PO DAILY.0630 [facility] Stop: 11/20/24 06:29 Last Admin: 11/21/23 05:39 [...] Gel In Packet 1 packet TRANSDERML DAILY [facility] Stop: 11/20/24 08:59 Tirzepatide [ Mounjaro] 5 Mg/0.5 Ml Pen Injector 5 mg SUBCUT Tu@0900 [facility] Stop: 11/29/24 08:59 Ondansetron HCl (Ondansetron 4 Mg/2 Ml Vial) 4 mg IV-PUSH Q8H PRN PRN Reason: Nausea And Vomiting Stop: 11/19/24 21:02 Pregabalin (Pregabalin 150 Mg Capsule) 150 mg PO BID [facility] Stop: 05/19/24 08:59 Last Admin: 11/21/23 08:00 [...] Taqueria Reese M.D.11/21/2023 8:08 AM Dictation Location: [place] [address] Any impression(s) listed above is documentation that [...] diabetic nephropathy. Patient has been going to [facility] on [facility] for hemodialysis. Last hemodialysis session was yesterday [...] needed Documented By: Yocasta Villalba MD 11/21/23 1005 Signed By: <Electronically signed by Yocasta Villalba MD> 11/21/23 101[address] [facility] Work Phone: [phone] 323-467403-17-2024 History and physical note Author Buddy Murguia [facility] November 20, 2023 10:57pm Note Date/Time November 20, 2023 10: 38pm [facility] [address] [place] [address] Hospitalist H&P Signed Patient: Evans Forte MR#: Maeve [id number] : 1970 Acct:[id number] Age/Sex: 53 / M Adm Date: 4 Loc: Room: [address] [place] [address] Type: ADM IN Attending Dr: Buddy Murguia DO Copies to: DO Buddy Dhillon DO~ HPI DATE OF EXAMINATION: 11/20/23 CHIEF COMPLAINT: nauseas HISTORY OF PRESENT ILLNESS: Mr Forte is a 53-year-old male who with a past medical history of hypertension, hyperlipidemia, ESRD on dialysis T--S, diabetic and insulin-dependent, GUSTAVO, and neuropathy who [...] noted below or in HPI [facility] Medical History (Updated 11/20/23 @ 22:54 by [...] 2 Surgical History History of cardiac catheterization [facility] History of orthopedic surgery right foot has [...] 19:00 Lymph % (Auto) N/A 11/20/23 19:00 [place] % (Auto) N/A 11/20/23 19:00 Eos % (Auto) N/A 11/20/23 19:00 Baso % (Auto) N/A 11/20/23 19:00 Nucleat RBC Rel Count N/A 11/20/23 19:00 Neut # (Auto) N/A 11/20/23 19:00 Lymph # (Auto) N/A 11/20/23 19:00 [place] # (Auto) N/A 11/20/23 19:00 Eos # [...] <Electronically signed by Buddy Murguia, > 11/20/23 [address] [facility] Work Phone: [phone]) 465-985402-07-2024 History of Present illness Narrative* Flakito High, - 10/13/2023 11:15 AM EST Images from the original note were not included. Evans Fotre 1970 Evans Forte is a 53 y.o. [...] Units tablet Daily RT Continuous Blood Gluc Cap Blocker (Dexcom G7 Cap Blocker) device Every 24 hours Continuous Blood Gluc [...] Reaction(s): Unknown Other reaction(s): Unknown Haloperidol Anxiety [place] Oil GI intolerance Runny nose, watery eyes Wound Dressing Adhesive Rash PAST MEDICAL HISTORY: SOCIAL HISTORY SURGICAL HISTORY: Past Medical History: Diagnosis Date Allergies CKD (chronic kidney disease) Diabetes ([facility]) Family history of cancer Glaucoma ([facility] History of being hospitalized 02/05/2017 [facility] - Discharged 02/07/17 Hyperlipidemia ([facility]) Hypertension ([facility] Hypothyroidism (acquired) ([facility]) GUSTAVO (obstructive sleep apnea) Osteomyelitis of left foot ([facility]) PAD (peripheral artery disease) ([facility]) Pancreatitis x3 Subcutaneous mass of back [...] visit: Peritoneal dialysis catheter dysfunction, subsequent encounter ([facility]) Plan is for removal of peritoneal dialysis catheter. I discussed with him the procedure and the risks and potential complications including but not limited to bleeding, infection, pain, possible needfor abdominal exploration if can not remove the catheter easily, possible foreign body retained. Heunderstands and he would like to proceed. No follow-ups on file. documented [facility] [id number] Evaluation note* Encounter Date Diagnosis Assessment Notes [...] He understands and agrees with that plan [employer] Other 01-11-2024 History and physical note Author Ramirez Jean [facility] September 16, 2023 1:55pm Note Date/Time September 16, 2023 1 :56pm [facility] [address] [place] [address] Vascular Surgery H&P Signed Patient: Evans Forte MR#: [id number] : 1970 Acct:[id number] Age/Sex: 53 / M Adm Date: 4 Loc: [place] Room: Type: [facility] Attending Dr: Ramirez Jean MD Copies [...] noted below or in HPI [facility] Medical History (Updated 09/16/23 @ 11:02 by [...] 13:44 09/16/23 13:44 09/16/23 13:44 09/16/23 13:34 01/11/24 13:24 Narrative: Pleasant large male in no [...] % (Auto) 74.1 Lymph % (Auto) 14.7 [place] % (Auto) 7.3 Eos % (Auto) 3.5 Baso % (Auto) 0.4 Nucleat RBC Rel Count 0.0 Neut # (Auto) 8.4 H Lymph # (Auto) 1.7 [place] # (Auto) 0.8 Eos # (Auto) 0.4 [...] MPV Neut % (Auto) Lymph % (Auto) [place] % (Auto) Eos % (Auto) Baso % (Auto) Nucleat RBC Rel Count Neut # (Auto) Lymph # (Auto) [place] # (Auto) Eos # (Auto) Baso # [...] signed by MD Ramirez Jean> 09/16/23 [facility] [facility] Work Phone: [phone]) 848-731410-16-2023 Evaluation note* Encounter Date Diagnosis Assessment Notes Treatment Notes Treatment Clinical Notes Jun, Type 2 diabetes mellitus with diabetic chronic kidney disease (ICD-10 - E11.22) [employer] Other 10-11-2023 Evaluation note* Encounter Date Diagnosis [...] your pharmacy, please contact our office at [phone]. Jun, Hypoglycemia (ICD-10 - E16.2) Low blood glucose and diabetes material was published Jun, CKD (chronic kidney disease) stage 5, GFR less than 15 ml/min (ICD-10 - N18.5) Living with chronic kidney disease material was published keep f/u with nephrology Jun, Other [facility]. [facility] stated [facility] [...] on his phone by George Vasques RN, [facility]. [employer] Other [id number] Evaluation note* Encounter Date Diagnosis Assessment Notes [...] advised him to take low potassium diet. [employer] Other 03-04-2023 Progress note Author Yocasta Villalba [facility] November 07, 2022 2:43pm Note Date/Time November 07, 2022 2:43 pm [facility] [address] [place] [address] Nephrology Progress Note Signed Patient: Evans Forte MR#: [id number] : 1970 Acct:[id number] Age/Sex: 52 / M Adm Date: 3 Loc: 4 Room: [address] [place] [address] Type: ADM IN Attending Dr: Chintan Brewster DO Copies to: ~ Date of Service: 11/07/2022 Subjective Subjective Narrative: This is a 52-year-old male patient with a past sickle history of chronic kidney disease stage V from diabetic nephropathy, hypertension, morbid obesity, anemia of renal disease, neuropathy. Patient was referred to the hospital by his grading clerk Dr. Waters for hyperkalemia with potassium 5.9 [...] 1 Tab Tablet) 1 tab PO DAILY [facility] Stop: 11/05/23 08:59 Last Admin: 11/07/22 08:38 Dose: 1 tab Furosemide (Furosemide 40 Mg/4 Ml Vial) 40 mg IV-PUSH DAILY.8A [facility] Stop: 11/07/23 09:54 Last Admin: 11/07/22 11:23 Dose: 40 mg Heparin Sodium (Porcine) (Heparin 5,000 Unit/Ml Vial) 5,000 unit SUBCUT Q8HR [facility] Stop: 11/05/23 13:59 Last Admin: 11/07/22 13:45 Dose: 5,000 unit Hydralazine HCl (Hydralazine 20 Mg/Ml Vial) 10 mg IV-PUSH Q4H PRN PRN Reason: if SBP > 185 Stop: 11/04/23 23:30 Last Admin: 11/07/22 12:13 Dose: 10 mg Hydralazine HCl (Hydralazine 50 Mg Tablet) 100 mg PO TID [facility] Stop: 11/07/23 13:59 Last Admin: 11/07/22 13:44 Dose: 100 mg Ferric Sodium Gluconate Complex 250 mg/ Sodium Chloride 270 mls @ 135 mls/hr IVQAM [facility] Stop: 11/09/22 09:01 Last Admin: 11/07/22 09:49 Dose: 135 mls/hr Insulin Human Regular (Insulin Regular U-500, Human 1,500 Unit/3 Ml Insuln.Pen) 45 unit SUBCUT DAILY@1700 [facility] Stop: 11/05/23 16:59 Last Admin: 11/06/22 17:13 Dose: 45 unit Insulin Human Regular (Insulin Regular U-500, Human 1,500 Unit/3 Ml Insuln.Pen) 70 unit SUBCUT DAILY@0600 [facility] Stop: 11/05/23 05:59 Last Admin: 11/07/22 05:54 Dose: 70 unit Labetalol HCl (Labetalol 100 Mg/20 Ml Vial) 10 mg IV-PUSH Q10M PRN PRN Reason: Hypertension Stop: 11/04/23 16:31 Last Admin: 11/04/22 21:41 Dose: 10 mg Levothyroxine Sodium (Levothyroxine 100 Mcg Tablet) 100 mcg PO DAILY@0630 [facility] Stop: 11/05/23 06:29 Last Admin: 11/07/22 05:55 [...] DAILY [facility] Stop: 05/04/23 08:59 Last Admin: 11/07/22 08:38 [...] a.m. Documented By: Yocasta Villalba MD 11/07/22 0440 Signed By: <Electronically signed by Yocasta Villalba MD> 11/07/22 1444 [facility] Work Phone: [phone] 700-541503-04-2023 Progress note Author Masoud Maria [facility] November 07, 2022 8:40am Note Date/Time November 07, 2022 8:40 am [facility] [address] [place] [address] General Surgery Progress Note Signed Patient: Evans Forte MR#: [id number] : 1970 Acct:[id number] Age/Sex: 52 / M Adm Date: 3 Loc: Room: [address] [place] [address] Type: ADM IN Attending Dr: Chintan Brewster [...] 500 Mg Tablet) 500 mg PO DAILY [facility] Stop: 11/05/23 08:59 Last Admin: 11/06/22 10:32 Dose: Not Given Atorvastatin Calcium (Atorvastatin 20 Mg Tablet) 20 mg PO DAILY [facility] Stop: 11/05/23 08:59 Last Admin: 11/06/22 10:32 Dose: Not Given Carvedilol (Carvedilol 25 Mg Tablet) 25 mg PO BID [facility] Stop: 11/04/23 20:59 Last Admin: 11/06/22 21:32 Dose: 25 mg Docusate Sodium (Docusate 100 Mg Capsule) 100 mg PO BID [facility] Stop: 11/06/23 20:59 Last Admin: 11/06/22 21:32 Dose: Not Given Emollient Ointment (Petrolatum,White 99 Gm Oint...G.) 1 applic TOPICAL DAILY [facility] Stop: 11/05/23 09:59 Last Admin: 11/07/22 05:55 Dose: 1 applic Fenofibrate (Fenofibrate Nanocrystallized 145 Mg Tablet) 145 mg PO DAILY [facility] Stop: 11/05/23 08:59 Last Admin: 11/05/22 08:48 Dose: 145 mg Ferrous Sulfate (Ferrous Sulfate 324 Mg Tablet.Dr) 324 mg PO DAILY [facility] Stop: 11/05/23 08:59 Last Admin: 11/06/22 10:32 Dose: Not Given Folic Acid (Cyanocobalamin/Fa/Pyridoxine 1 Tab Tablet) 1 tab PO DAILY [facility] Stop: 11/05/23 08:59 Last Admin: 11/06/22 10:32 Dose: Not Given Heparin Sodium (Porcine) (Heparin 5,000 Unit/Ml Vial) 5,000 unit SUBCUT Q8HR [facility] Stop: 11/05/23 13:59 Last Admin: 11/07/22 05:53 Dose: 5,000 unit Hydralazine HCl (Hydralazine 20 Mg/Ml Vial) 10 mg IV-PUSH Q4H PRN PRN Reason: if SBP > 185 Stop: 11/04/23 23:30 Last Admin: 11/04/22 23:40 Dose: 10 mg Hydralazine HCl (Hydralazine 50 Mg Tablet) 50 mg PO TID [facility] Stop: 11/05/23 05:59 Last Admin: 11/06/22 21:32 Dose: 50 mg Sodium Chloride (0.9% Sodium Chloride 500 Ml) 500 mls @ 20 mls/hr IV ONCE ONE Stop: 11/07/22 10:00 Last Admin: 11/06/22 10:37 Dose: 20 mls/hr Ferric Sodium Gluconate Complex 250 mg/ Sodium Chloride 270 mls @ 135 mls/hr IVQAM [facility] Stop: 11/09/22 09:01 Last Infusion: 11/06/22 13:03 Dose: Infused Insulin Human Regular (Insulin Regular U-500, Human 1,500 Unit/3 Ml Insuln.Pen) 45 unit SUBCUT DAILY@1700 [facility] Stop: 11/05/23 16:59 Last Admin: 11/06/22 17:13 Dose: 45 unit Insulin Human Regular (Insulin Regular U-500, Human 1,500 Unit/3 Ml Insuln.Pen) 70 unit SUBCUT DAILY@0600 [facility] Stop: 11/05/23 05:59 Last Admin: 11/07/22 05:54 Dose: 70 unit Labetalol HCl (Labetalol 100 Mg/20 Ml Vial) 10 mg IV-PUSH Q10M PRN PRN Reason: Hypertension Stop: 11/04/23 16:31 Last Admin: 11/04/22 21:41 Dose: 10 mg Levothyroxine Sodium (Levothyroxine 100 Mcg Tablet) 100 mcg PO DAILY@0630 [facility] Stop: 11/05/23 06:29 Last Admin: 11/07/22 05:55 Dose: 100 mcg Lorazepam (Lorazepam 2 Mg/Ml Vial) 0.5 mg IV-PUSH Q4H PRN PRN Reason: Agitation Stop: 05/05/23 16:50 Last Admin: 11/06/22 17:11 Dose: 0.5 mg Nifedipine (Nifedipine Er.24hr 90 Mg Tab.Er.24) 90 mg PO DAILY [facility] Stop: 11/05/23 08:59 Last Admin: 11/06/22 10:32 Dose: Not Given Pregabalin (Pregabalin 50 Mg Capsule) 50 mg PO DAILY [facility] Stop: 05/04/23 08:59 Last Admin: 11/06/22 10:32 Dose: Not Given Sodium Bicarbonate (Sodium Bicarbonate 650 Mg Tablet) 1,300 mg PO BID [facility] Stop: 11/05/23 10:29 Last Admin: 11/06/22 21:32 [...] Zirconium Cyclosilicate 5 gm 15 gmPO DAILY [facility] Stop: 11/06/23 10:29 Last Admin: 11/06/22 15:41 Dose: 15 gm Trazodone HCl (Trazodone 50 Mg Tablet) 50 mg PO QHS [facility] Stop: 11/06/23 20:59 Last Admin: 11/06/22 21:32 Dose: 50 mg Vitamin A (Vitamin A 3,000 Mcg (10,000 Units) Capsule) 3,000 mcg PO DAILY [facility] Stop: 11/05/23 08:59 Last Admin: 11/06/22 10:32 Dose: Not Given Vitamin D (Cholecalciferol 25 Mcg (1,000 Units) Tablet) 50 mcg PO DAILY [facility] Stop: 11/05/23 08:59 Last Admin: 11/06/22 10:32 Dose: Not Given Zinc Gluconate (Zinc Gluconate 50 Mg Tablet) 50 mg PO DAILY [facility] Stop: 11/05/23 08:59 Last Admin: 11/06/22 10:32 [...] % (Auto) 87.5, Lymph % (Auto) 5.8, [place] % (Auto) 6.5, Eos % (Auto)0.1, Baso % (Auto) 0.1, Nucleat RBC Rel Count 0.1, Neut # (Auto) 10.9 H, Lymph #(Auto) 0.7 L, [place] # (Auto) 0.8, Eos # (Auto) 0.0, [...] % (Auto) 74.7, Lymph % (Auto) 13.3, [place] % (Auto) 9.0, Eos % (Auto) 2.5, Baso % (Auto) 0.5, Nucleat RBC Rel Count 0.1, Neut # (Auto) 10.0 H, Lymph # (Auto) 1.8, [place] # (Auto) 1.2 H, Eos # (Auto) [...] signed by Masoud Maria DO> 11/07/22 0840 [facility] Work Phone: [phone] 133-710603-03-2023 Progress note Author Chintan Brewster [facility] November 06, 2022 5:26pm Note Date/Time November 06, 2022 5:26 pm [facility] [address] [place] [address] Hospitalist Progress Note Signed Patient: Evans Forte MR#: [id number] : 1970 Acct:[id number] Age/Sex: 52 / M Adm Date: 3 Loc: Room: [address] [place] [address] Type: ADM IN Attending Dr: Chintan Brewster [...] Tablet. PO 11/05/23 08:59 Not Given DAILY [facility] Folic Acid 1 tab 11/05/22 09:00 11/06/22 10:32 Cyanocobalamin/Fa/Pyridoxine 1 Tab Tablet PO 11/05/23 08:59 Not Given DAILY [facility] Heparin Sodium (Porcine) 5,000 unit 11/05/22 14:00 11/06/22 14:15 Heparin 5,000 Unit/Ml Vial SUBCUT 11/05/23 13:59 Not Given Q8HR [facility] Hydralazine HCl 10 mg 11/04/22 23:31 11/04/22 [...] Sodium IV 11/09/22 09:01 Infused Chloride QAM [facility] Infusion Insulin Human Regular 45 unit 11/05/22 17:00 11/06/22 17:13 Insulin Regular U-500, Human 1,500 Unit/3 Ml Insuln.Pen SUBCUT 11/05/23 16:59 45 unit DAILY@1700 [facility] Administration Insulin Human Regular 70 unit 11/05/22 06:00 11/06/22 06:25 Insulin Regular U-500, Human 1,500 Unit/3 Ml Insuln.Pen SUBCUT 11/05/23 05:59 Not Given DAILY@0600 [facility] Insulin Human Regular 0 unit 11/06/22 12:34 [...] Tablet PO 11/05/23 06:29 Not Given DAILY@0630 [facility] Lidocaine HCl 0.1 ml 11/06/22 12:34 Lidocaine 1% 20 Ml Vial INTRADERMA 11/06/22 18:34 PREOP PRN Venipuncture Lorazepam 0.5 mg 11/06/22 16:51 11/06/22 17:11 Lorazepam 2 Mg/Ml Vial IV-PUSH 05/05/23 16:50 0.5 mg Q4H PRN Administration Agitation Nifedipine 90 mg 11/05/22 09:00 11/06/22 10:32 Nifedipine Er.24hr 90 Mg Tab.Er.24 PO 11/05/23 08:59 Not Given DAILY [facility] Pregabalin 50 mg 11/05/22 09:00 11/06/22 10:32 Pregabalin 50 Mg Capsule PO 05/04/23 08:59 Not Given DAILY [facility] Sodium Bicarbonate 1,300 mg 11/05/22 14:40 11/06/22 [...] <Electronically signed by Chintan Brewster DO> 11/06/22 6958 [facility] Work Phone: [phone] 795-700003-03-2023 Progress note Author Yocasta Villalba [facility] November 06, 2022 2:57pm Note Date/Time November 06, 2022 2:57 pm [facility] [address] [place] [address] Nephrology Progress Note Signed Patient: Evans Forte MR#: [id number] : 1970 Acct:[id number] Age/Sex: 52 / M Adm Date: 3 Loc: Room: [address] [place] [address] Type: ADM IN Attending Dr: Chintan Frings DO Copies to: ~ Date of Service: 11/06/2022 Subjective Subjective Narrative: This is a 52-year-old male patient with a past sickle history of chronic kidney disease stage V from diabetic nephropathy, hypertension, morbid obesity, anemia of renal disease, neuropathy. Patient was referred to the hospital by his grading clerk Dr. Waters for hyperkalemia with potassium 5.9 [...] 500 Mg Tablet) 500 mg PO DAILY [facility] Stop: 11/05/23 08:59 Last Admin: 11/06/22 10:32 Dose: Not Given Atorvastatin Calcium (Atorvastatin 20 Mg Tablet) 20 mg PO DAILY [facility] Stop: 11/05/23 08:59 Last Admin: 11/06/22 10:32 Dose: Not Given Carvedilol (Carvedilol 25 Mg Tablet) 25 mg PO BID [facility] Stop: 11/04/23 20:59 Last Admin: 11/06/22 09:05 Dose: 25 mg Docusate Sodium (Docusate 100 Mg Capsule) 100 mg PO BID [facility] Stop: 11/06/23 20:59 Droperidol (Droperidol 5 Mg/2 Ml Vial) 1.25 mg IV-PUSH ONCE PRN PRN Reason: Nausea And Vomiting Stop: 11/06/22 16:28 Emollient Ointment (Petrolatum,White 99 Gm Oint...G.) 1 applic TOPICAL DAILY [facility] Stop: 11/05/23 09:59 Last Admin: 11/06/22 09:05 Dose: 1 applic Fenofibrate (Fenofibrate Nanocrystallized 145 Mg Tablet) 145 mg PO DAILY [facility] Stop: 11/05/23 08:59 Last Admin: 11/05/22 08:48 Dose: 145 mg Ferrous Sulfate (Ferrous Sulfate 324 Mg Tablet.Dr) 324 mg PO DAILY [facility] Stop: 11/05/23 08:59 Last Admin: 11/06/22 10:32 Dose: Not Given Folic Acid (Cyanocobalamin/Fa/Pyridoxine 1 Tab Tablet) 1 tab PO DAILY [facility] Stop: 11/05/23 08:59 Last Admin: 11/06/22 10:32 Dose: Not Given Heparin Sodium (Porcine) (Heparin 5,000 Unit/Ml Vial) 5,000 unit SUBCUT Q8HR [facility] Stop: 11/05/23 13:59 Last Admin: 11/06/22 14:15 Dose: Not Given Hydralazine HCl (Hydralazine 20 Mg/Ml Vial) 10 mg IV-PUSH Q4H PRN PRN Reason: if SBP > 185 Stop: 11/04/23 23:30 Last Admin: 11/04/22 23:40 Dose: 10 mg Hydralazine HCl (Hydralazine 50 Mg Tablet) 50 mg PO TID [facility] Stop: 11/05/23 05:59 Last Admin: 11/06/22 10:32 Dose: Not Given Sodium Chloride (0.9% Sodium Chloride 500 Ml) 500 mls @ 20 mls/hr IV ONCE ONE Stop: 11/07/22 10:00 Last Admin: 11/06/22 10:37 Dose: 20 mls/hr Ferric Sodium Gluconate Complex 250 mg/ Sodium Chloride 270 mls @ 135 mls/hr IVQAM [facility] Stop: 11/09/22 09:01 Last Infusion: 11/06/22 13:03 Dose: Infused Insulin Human Regular (Insulin Regular U-500, Human 1,500 Unit/3 Ml Insuln.Pen) 45 unit SUBCUT DAILY@1700 [facility] Stop: 11/05/23 16:59 Last Admin: 11/05/22 18:24 Dose: 45 unit Insulin Human Regular (Insulin Regular U-500, Human 1,500 Unit/3 Ml Insuln.Pen) 70 unit SUBCUT DAILY@0600 [facility] Stop: 11/05/23 05:59 Last Admin: 11/06/22 06:25 [...] 100 Mcg Tablet) 100 mcg PO DAILY@0630 [facility] Stop: 11/05/23 06:29 Last Admin: 11/06/22 06:38 Dose: Not Given Lidocaine HCl (Lidocaine 1% 20 Ml Vial) 0.1 ml INTRADERMA PREOP PRN PRN Reason: Venipuncture Stop: 11/06/22 15:01 Lidocaine HCl (Lidocaine 1% 20 Ml Vial) 0.1 ml INTRADERMA PREOP PRN PRN Reason: Venipuncture Stop: 11/06/22 18:34 Nifedipine (Nifedipine Er.24hr 90 Mg Tab.Er.24) 90 mg PO DAILY [facility] Stop: 11/05/23 08:59 Last Admin: 11/06/22 10:32 Dose: Not Given Ondansetron HCl (Ondansetron 4 Mg/2 Ml Vial) 4 mg IV-PUSH ONCE PRN PRN Reason: Nausea/Vomiting Stop: 11/06/22 16:28 Pregabalin (Pregabalin 50 Mg Capsule) 50 mg PO DAILY [facility] Stop: 05/04/23 08:59 Last Admin: 11/06/22 10:32 Dose: Not Given Sodium Bicarbonate (Sodium Bicarbonate 650 Mg Tablet) 1,300 mg PO BID [facility] Stop: 11/05/23 10:29 Last Admin: 11/06/22 10:32 Dose: Not Given Sodium Chloride (Sodium Chloride 0.9 % 10 Ml Syringe) 0 ml IV-PUSH PRN PRN PRN Reason: Flush Stop: 11/04/23 13:53 Sodium Zirconium Cyclosilicate 10 gm/ Sodium Zirconium Cyclosilicate 5 gm 15 gmPO DAILY [facility] Stop: 11/06/23 10:29 Vitamin A (Vitamin A 3,000 Mcg (10,000 Units) Capsule) 3,000 mcg PO DAILY [facility] Stop: 11/05/23 08:59 Last Admin: 11/06/22 10:32 Dose: Not Given Vitamin D (Cholecalciferol 25 Mcg (1,000 Units) Tablet) 50 mcg PO DAILY [facility] Stop: 11/05/23 08:59 Last Admin: 11/06/22 10:32 [...] in a.m. Documented By: Yocasta Villalba MD 11/06/221452 Signed By: <Electronically signed by Yocasta Villalba MD> 11/06/22 1452 [facility] Work Phone: [phone]) 445-884803-02-2023 Progress note Author Chintan Brewster [facility] November 05, 2022 3:55pm Note Date/Time November 05, 2022 3:55 pm [facility] [address] [place] [address] Hospitalist Progress Note Signed Patient: Evans Forte MR#: [id number] : 1970 Acct:[id number] Age/Sex: 52 / M Adm Date: 3 Loc: Room: [address] [place] [address] Type: ADM IN Attending Dr: Chintan Brewster [...] 165/79 H 96 Room Air 11/05/22 14:48 03/02/23 14:48 11/05/22 14:48 11/05/22 14:48 11/05/22 14:48 [...] 80 Mg Tablet PO 11/06/23 07:59 DAILY.8A [facility] Heparin Sodium (Porcine) 5,000 unit 11/05/22 14:00 [...] Unit/3 Ml Insuln.Pen SUBCUT 11/05/23 16:59 DAILY@1700 [facility] Insulin Human Regular 70 unit 11/05/22 06:00 11/05/22 08:05 Insulin Regular U-500, Human 1,500 Unit/3 Ml Insuln.Pen SUBCUT 11/05/23 05:59 70 unit DAILY@0600 [facility] Administration Labetalol HCl 10 mg 11/04/22 16:32 [...] signed by Chintan Brewster DO> 11/05/22 1555 [facility] Work Phone: [phone] Consult note Author Yocasta Villalba [facility] November 05, 2022 2:39pm Note Date/Time November 05, 2022 2:39 pm [facility] [address] [place] [address] Nephrology Consult Note Signed Patient: Evans Forte MR#: [id number] : 1970 Acct:[id number] Age/Sex: 52 / M Adm Date: 3 Loc: Room: [address] [place] [address] Type: ADM IN Attending Dr: Chintan Brewster [...] was referred to the hospital by his grading clerk Dr. Waters for hyperkalemia with potassium 5.9 [...] 500 Mg Tablet) 500 mg PO DAILY [facility] Stop: 11/05/23 08:59 Last Admin: 11/05/22 08:49 Dose: 500 mg Atorvastatin Calcium (Atorvastatin 20 Mg Tablet) 20 mg PO DAILY [facility] Stop: 11/05/23 08:59 Last Admin: 11/05/22 08:50 Dose: 20 mg Carvedilol (Carvedilol 25 Mg Tablet) 25 mg PO BID [facility] Stop: 11/04/23 20:59 Last Admin: 11/05/22 08:50 Dose: 25 mg Emollient Ointment (Petrolatum,White 99 Gm Oint...G.) 1 applic TOPICAL DAILY [facility] Stop: 11/05/23 09:59 Fenofibrate (Fenofibrate Nanocrystallized 145 Mg Tablet) 145 mg PO DAILY [facility] Stop: 11/05/23 08:59 Last Admin: 11/05/22 08:48 Dose: 145 mg Ferrous Sulfate (Ferrous Sulfate 324 Mg Tablet.) 324 mg PO DAILY [facility] Stop: 11/05/23 08:59 Last Admin: 11/05/22 08:52 Dose: 324 mg Folic Acid (Cyanocobalamin/Fa/Pyridoxine 1 Tab Tablet) 1 tab PO DAILY [facility] Stop: 11/05/23 08:59 Last Admin: 11/05/22 08:48 Dose: 1 tab Heparin Sodium (Porcine) (Heparin 5,000 Unit/Ml Vial) 5,000 unit SUBCUT Q8HR [facility] Stop: 11/05/23 13:59 Hydralazine HCl (Hydralazine 20 Mg/Ml Vial) 10 mg IV-PUSH Q4H PRN PRN Reason: if SBP > 185 Stop: 11/04/23 23:30 Last Admin: 11/04/22 23:40 Dose: 10 mg Hydralazine HCl (Hydralazine 50 Mg Tablet) 50 mg PO TID [facility] Stop: 11/05/23 05:59 Last Admin: 11/05/22 08:52 Dose: 50 mg Insulin Human Regular (Insulin Regular U-500, Human 1,500 Unit/3 Ml Insuln.Pen) 45 unit SUBCUT DAILY@1700 [facility] Stop: 11/05/23 16:59 Insulin Human Regular (Insulin Regular U-500, Human 1,500 Unit/3 Ml Insuln.Pen) 70 unit SUBCUT DAILY@0600 [facility] Stop: 11/05/23 05:59 Last Admin: 11/05/22 08:05 Dose: 70 unit Labetalol HCl (Labetalol 100 Mg/20 Ml Vial) 10 mg IV-PUSH Q10M PRN PRN Reason: Hypertension Stop: 11/04/23 16:31 Last Admin: 11/04/22 21:41 Dose: 10 mg Levothyroxine Sodium (Levothyroxine 100 Mcg Tablet) 100 mcg PO DAILY@0630 [facility] Stop: 11/05/23 06:29 Last Admin: 11/05/22 06:10 Dose: 100 mcg Nifedipine (Nifedipine Er.24hr 90 Mg Tab.Er.24) 90 mg PO DAILY [facility] Stop: 11/05/23 08:59 Last Admin: 11/05/22 08:52 Dose: 90 mg Pregabalin (Pregabalin 50 Mg Capsule) 50 mg PO DAILY [facility] Stop: 05/04/23 08:59 Last Admin: 11/05/22 08:52 Dose: 50 mg Sodium Bicarbonate (Sodium Bicarbonate 650 Mg Tablet) 650 mg PO BID [facility] Stop: 11/05/23 10:29 Last Admin: 11/05/22 12:03 Dose: 650 mg Sodium Chloride (Sodium Chloride 0.9 % 10 Ml Syringe) 0 ml IV-PUSH PRN PRN PRN Reason: Flush Stop: 11/04/23 13:53 Vitamin A (Vitamin A 3,000 Mcg (10,000 Units) Capsule) 3,000 mcg PO DAILY [facility] Stop: 11/05/23 08:59 Last Admin: 11/05/22 08:52 Dose: 3,000 mcg Vitamin D (Cholecalciferol 25 Mcg (1,000 Units) Tablet) 50 mcg PO DAILY [facility] Stop: 11/05/23 08:59 Last Admin: 11/05/22 08:50 Dose: 50 mcg Zinc Gluconate (Zinc Gluconate 50 Mg Tablet) 50 mg PO DAILY [facility] Stop: 11/05/23 08:59 Last Admin: 11/05/22 08:52 [...] FINDINGS Impression dictated by: Anibal Escudero Jr., D.O.11/04/2022 3:50 PM Dictation Location: [place] [address] Any impression(s) listed above is documentation that [...] signed by Yocasta Villalba MD> 11/05/22 1439 [facility] Work Phone: 1(555) 174-624603-02-2023 Consult note Author Flakito High [facility] November 05, 2022 12:31pm Note Date/Time November 05, 2022 12:3 1pm [facility] [address] [place] [address] General Surgery Consult Note Signed Patient: Evans Forte MR#: [id number] : 1970 Acct:[id number] Age/Sex: 52 / M Adm Date: 3 Loc: Room: [address] [place] [address] Type: ADM IN Attending Dr: Chintan Brewster [...] instead of hemodialysis. He has talked his grading clerk about this. He is not having any [...] 500 Mg Tablet) 500 mg PO DAILY [facility] Stop: 11/05/23 08:59 Last Admin: 11/05/22 08:49 Dose: 500 mg Atorvastatin Calcium (Atorvastatin 20 Mg Tablet) 20 mg PO DAILY [facility] Stop: 11/05/23 08:59 Last Admin: 11/05/22 08:50 Dose: 20 mg Carvedilol (Carvedilol 25 Mg Tablet) 25 mg PO BID [facility] Stop: 11/04/23 20:59 Last Admin: 11/05/22 08:50 Dose: 25 mg Emollient Ointment (Petrolatum,White 99 Gm Oint...G.) 1 applic TOPICAL DAILY [facility] Stop: 11/05/23 09:59 Fenofibrate (Fenofibrate Nanocrystallized 145 Mg Tablet) 145 mg PO DAILY [facility] Stop: 11/05/23 08:59 Last Admin: 11/05/22 08:48 Dose: 145 mg Ferrous Sulfate (Ferrous Sulfate 324 Mg Tablet.) 324 mg PO DAILY [facility] Stop: 11/05/23 08:59 Last Admin: 11/05/22 08:52 Dose: 324 mg Folic Acid (Cyanocobalamin/Fa/Pyridoxine 1 Tab Tablet) 1 tab PO DAILY [facility] Stop: 11/05/23 08:59 Last Admin: 11/05/22 08:48 Dose: 1 tab Heparin Sodium (Porcine) (Heparin 5,000 Unit/Ml Vial) 5,000 unit SUBCUT Q8HR [facility] Stop: 11/05/23 13:59 Hydralazine HCl (Hydralazine 20 Mg/Ml Vial) 10 mg IV-PUSH Q4H PRN PRN Reason: if SBP > 185 Stop: 11/04/23 23:30 Last Admin: 11/04/22 23:40 Dose: 10 mg Hydralazine HCl (Hydralazine 50 Mg Tablet) 50 mg PO TID [facility] Stop: 11/05/23 05:59 Last Admin: 11/05/22 08:52 Dose: 50 mg Insulin Human Regular (Insulin Regular U-500, Human 1,500 Unit/3 Ml Insuln.Pen) 45 unit SUBCUT DAILY@1700 [facility] Stop: 11/05/23 16:59 Insulin Human Regular (Insulin Regular U-500, Human 1,500 Unit/3 Ml Insuln.Pen) 70 unit SUBCUT DAILY@0600 [facility] Stop: 11/05/23 05:59 Last Admin: 11/05/22 08:05 Dose: 70 unit Labetalol HCl (Labetalol 100 Mg/20 Ml Vial) 10 mg IV-PUSH Q10M PRN PRN Reason: Hypertension Stop: 11/04/23 16:31 Last Admin: 11/04/22 21:41 Dose: 10 mg Levothyroxine Sodium (Levothyroxine 100 Mcg Tablet) 100 mcg PO DAILY@0630 [facility] Stop: 11/05/23 06:29 Last Admin: 11/05/22 06:10 [...] % (Auto) 72.3, Lymph % (Auto) 14.6, [place] % (Auto) 9.5, Eos % (Auto) 2.8, Baso % (Auto) 0.8, Nucleat RBC Rel Count 0.0, Neut # (Auto) 9.8 H, Lymph # (Auto) 2.0, [place] # (Auto) 1.3 H, Eos # (Auto) [...] % (Auto) 74.8, Lymph % (Auto) 12.4, [place] % (Auto) 9.0, Eos % (Auto) 2.7, Baso % (Auto) 1.1, Nucleat RBC Rel Count 0.0, Neut # (Auto) 9.1 H, Lymph # (Auto) 1.5, [place] # (Auto) 1.1 H, Eos # (Auto) 0.3, Baso # (Auto) 0.1, Monocyte Dist Width 17.32 11/04/22 14:04: Urine Color Yellow, Urine Appearance Clear, Urine pH 5.5, Ur Specific [place] 1.013, Urine Protein 300 H, Urine Glucose [...] <Electronically signed by DO Flakito High> 11/05/22 [id number] [facility] Work Phone: [phone] History and physical note Author Chintan Brewster [facility] November 04, 2022 8:11pm Note Date/Time November 04, 2022 8:11 pm [facility] [address] [place] [address] Hospitalist H&P Signed Patient: Evans Forte MR#: [id number] : 1970 Acct:[id number] Age/Sex: 52 / M Adm Date: 3 Loc: ER Room: Type: [facility] ER Attending Dr: Copies to: DO Delano Dhillon MD Michael R. Frings, ~ HPI DATE OF EXAMINATION: 11/04/22 CHIEF COMPLAINT: Abnormal labs HISTORY OF PRESENT ILLNESS: This patient is a 52-year-old male who presented to the emergency department earlier today with a chief complaint of abnormal labs at the recommendation of his grading clerk. He is in preparation for peritoneal dialysis [...] The patient was admitted to the [facility] [facility] and [facility] after [...] % (Auto) 12.4 % (.) 11/04/22 15:11 [place] % (Auto) 9.0 % (.) 11/04/22 15:11 Eos % (Auto) 2.7 % (.) 11/04/22 15:11 Baso % (Auto) 1.1 % (.) 11/04/22 15:11 Nucleat RBC Rel Count 0.0 /100 WBC (0-0.5) 11/04/22 15:11 Neut # (Auto) 9.1 x10E3/uL (1.8-7.7) H 11/04/22 15:11 Lymph # (Auto) 1.5 x10E3/uL (1.00-4.8) 11/04/22 15:11 [place] # (Auto) 1.1 x10E3/uL (0.0-0.8) H 11/04/22 [...] pH 5.5 (5.0-9.0) 11/04/22 14:04 Ur Specific [place] 1.013 (1.001-1.030) 11/04/22 14:04 Urine Protein 300 [...] <Electronically signed by Chintan Brewster DO> 11/04/222010 [facility] Work Phone: 1(276) 739-514212-07-2022 Evaluation note* Encounter Date Diagnosis Assessment Notes [...] discussed with him the different option of CERTIFIED SCRUB TECH including PD, 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 He is interested in PD. No need to initiate dialysis now. We will refer to the Dr. Allred once he needed to be initiated on PD. I have encouraged him to lose weight for kidney transplant. Continue follow with continues to [place] [facility]. He is a suitable candidate for preemptive [...] advised him to take low potassium diet. [employer] Other 10-18-2022 Hospital Discharge instructions Additional Instructions Your kidney function is within your usual range. There has been no significant worsening over the last few months. Your blood sugar is okay tonight. It was only 150 here. In terms of overall management, please call Dr. Ricketts tomorrow to discuss with her any changes in your insulin.[facility] Work Phone: [phone] 286-333909-14-2022 Evaluation note* Encounter Date Diagnosis Assessment Notes [...] discussed with him the different option of CERTIFIED SCRUB TECH including PD, 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 He is interested in PD. No need to initiate dialysis now. We will refer to the Dr. Allred once he needed to be initiated on PD. I have encouraged him to lose weight for kidney transplant. Continue follow with continues to [place] [facility]. May, Hypertensive chronic kidney disease [...] advised him to take low potassium diet. [employer] Other 07-07-2022 Evaluation note* Encounter Date Diagnosis [...] discussed with him the different option of CERTIFIED SCRUB TECH including PD, 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 He is interested in PD. I have encouraged him to lose weight for kidney transplant. Continue follow with continues to [place] [facility]. Mar, Hypertensive chronic kidney disease with stage [...] advised him to take low potassium diet. [employer] Other 06-23-2022 NotePROCEDURE: XR FOOT RT MIN [...] Electronically authenticated by: VIRGINIA GARCIA Date: 2022-02-26 16:16[facility]03-30-2022 Evaluation note* Encounter Date Diagnosis Assessment [...] discussed with him the different option of CERTIFIED SCRUB TECH including PD, 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 He is interested in PD. I have encouraged him to lose weight for kidney transplant. Continue follow with continues to [place] [facility]. Nov, Hypertensive chronic kidney disease with stage [...] advised him to take low potassium diet. [employer] Other 12-16-2021 NoteHISTORY: Follow up prior CT, [...] and signed by Anibal Calle on 08/21/2021 [id number] SpecialistConsult note Author Flakito High [facility] November 05, 2022 12:31pm Note Date/Time November 05, 2022 12:3 1pm [facility] [address] [place] [address] General Surgery Consult Note Signed Patient: Evans Forte MR#: [id number] : 1970 Acct:[id number] Age/Sex: 52 / M Adm Date: 3 Loc: Room: [address] [place] [address] Type: ADM IN Attending Dr: Chintan Brewster [...] instead of hemodialysis. He has talked his grading clerk about this. He is not having any [...] 20 Mg Tablet) 20 mg PO DAILY [facility] Stop: 11/05/23 08:59 Last Admin: 11/05/22 08:50 Dose: 20 mg Carvedilol (Carvedilol 25 Mg Tablet) 25 mg PO BID [facility] Stop: 11/04/23 20:59 Last Admin: 11/05/22 08:50 Dose: 25 mg Emollient Ointment (Petrolatum,White 99 Gm Oint...G.) 1 applic TOPICAL DAILY [facility] Stop: 11/05/23 09:59 Fenofibrate (Fenofibrate Nanocrystallized 145 Mg Tablet) 145 mg PO DAILY [facility] Stop: 11/05/23 08:59 Last Admin: 11/05/22 08:48 Dose: 145 mg Ferrous Sulfate (Ferrous Sulfate 324 Mg Tablet.Dr) 324 mg PO DAILY [facility] Stop: 11/05/23 08:59 Last Admin: 11/05/22 08:52 Dose: 324 mg Folic Acid (Cyanocobalamin/Fa/Pyridoxine 1 Tab Tablet) 1 tab PO DAILY [facility] Stop: 11/05/23 08:59 Last Admin: 11/05/22 08:48 Dose: 1 tab Heparin Sodium (Porcine) (Heparin 5,000 Unit/Ml Vial) 5,000 unit SUBCUT Q8HR [facility] Stop: 11/05/23 13:59 Hydralazine HCl (Hydralazine 20 Mg/Ml Vial) 10 mg IV-PUSH Q4H PRN PRN Reason: if SBP > 185 Stop: 11/04/23 23:30 Last Admin: 11/04/22 23:40 Dose: 10 mg Hydralazine HCl (Hydralazine 50 Mg Tablet) 50 mg PO TID [facility] Stop: 11/05/23 05:59 Last Admin: 11/05/22 08:52 Dose: 50 mg Insulin Human Regular (Insulin Regular U-500, Human 1,500 Unit/3 Ml Insuln.Pen) 45 unit SUBCUT DAILY@1700 [facility] Stop: 11/05/23 16:59 Insulin Human Regular (Insulin Regular U-500, Human 1,500 Unit/3 Ml Insuln.Pen) 70 unit SUBCUT DAILY@0600 [facility] Stop: 11/05/23 05:59 Last Admin: 11/05/22 08:05 Dose: 70 unit Labetalol HCl (Labetalol 100 Mg/20 Ml Vial) 10 mg IV-PUSH Q10M PRN PRN Reason: Hypertension Stop: 11/04/23 16:31 Last Admin: 11/04/22 21:41 Dose: 10 mg Levothyroxine Sodium (Levothyroxine 100 Mcg Tablet) 100 mcg PO DAILY@0630 [facility] Stop: 11/05/23 06:29 Last Admin: 11/05/22 06:10 [...] % (Auto) 72.3, Lymph % (Auto) 14.6, [place] % (Auto) 9.5, Eos % (Auto) 2.8, Baso % (Auto) 0.8, Nucleat RBC Rel Count 0.0, Neut # (Auto) 9.8 H, Lymph # (Auto) 2.0, [place] # (Auto) 1.3 H, Eos # (Auto) [...] % (Auto) 74.8, Lymph % (Auto) 12.4, [place] % (Auto) 9.0, Eos % (Auto) 2.7, Baso % (Auto) 1.1, Nucleat RBC Rel Count 0.0, Neut # (Auto) 9.1 H, Lymph # (Auto) 1.5, [place] # (Auto) 1.1 H, Eos # (Auto) 0.3, Baso # (Auto) 0.1, Monocyte Dist Width 17.32 11/04/22 14:04: Urine Color Yellow, Urine Appearance Clear, Urine pH 5.5, Ur Specific [place] 1.013, Urine Protein 300 H, Urine Glucose [...] signed by DO Flakito High> 11/05/22 1231 [facility] Work Phone: Consult note Author Yocasta Villalba [facility] November 05, 2022 2:39pm Note Date/Time November 05, 2022 2:39 pm [facility] [address] [place] [address] Nephrology Consult Note Signed Patient: Evans Forte MR#: [id number] : 1970 Acct:[id number] Age/Sex: 52 / M Adm Date: 3 Loc: Room: [address] [place] [address] Type: ADM IN Attending Dr: Chintan Brewster [...] was referred to the hospital by his grading clerk Dr. Waters for hyperkalemia with potassium 5.9 [...] 500 Mg Tablet) 500 mg PO DAILY [facility] Stop: 11/05/23 08:59 Last Admin: 11/05/22 08:49 [...] 324 Mg Tablet.) 324 mg PO DAILY [facility] Stop: 11/05/23 08:59 Last Admin: 11/05/22 08:52 Dose: 324 mg Folic Acid (Cyanocobalamin/Fa/Pyridoxine 1 Tab Tablet) 1 tab PO DAILY [facility] Stop: 11/05/23 08:59 Last Admin: 11/05/22 08:48 Dose: 1 tab Heparin Sodium (Porcine) (Heparin 5,000 Unit/Ml Vial) 5,000 unit SUBCUT Q8HR [facility] Stop: 11/05/23 13:59 Hydralazine HCl (Hydralazine 20 Mg/Ml Vial) 10 mg IV-PUSH Q4H PRN PRN Reason: if SBP > 185 Stop: 11/04/23 23:30 Last Admin: 11/04/22 23:40 Dose: 10 mg Hydralazine HCl (Hydralazine 50 Mg Tablet) 50 mg PO TID [facility] Stop: 11/05/23 05:59 Last Admin: 11/05/22 08:52 Dose: 50 mg Insulin Human Regular (Insulin Regular U-500, Human 1,500 Unit/3 Ml Insuln.Pen) 45 unit SUBCUT DAILY@1700 [facility] Stop: 11/05/23 16:59 Insulin Human Regular (Insulin Regular U-500, Human 1,500 Unit/3 Ml Insuln.Pen) 70 unit SUBCUT DAILY@0600 [facility] Stop: 11/05/23 05:59 Last Admin: 11/05/22 08:05 Dose: 70 unit Labetalol HCl (Labetalol 100 Mg/20 Ml Vial) 10 mg IV-PUSH Q10M PRN PRN Reason: Hypertension Stop: 11/04/23 16:31 Last Admin: 11/04/22 21:41 Dose: 10 mg Levothyroxine Sodium (Levothyroxine 100 Mcg Tablet) 100 mcg PO DAILY@0630 [facility] Stop: 11/05/23 06:29 Last Admin: 11/05/22 06:10 Dose: 100 mcg Nifedipine (Nifedipine Er.24hr 90 Mg Tab.Er.24) 90 mg PO DAILY [facility] Stop: 11/05/23 08:59 Last Admin: 11/05/22 08:52 Dose: 90 mg Pregabalin (Pregabalin 50 Mg Capsule) 50 mg PO DAILY [facility] Stop: 05/04/23 08:59 Last Admin: 11/05/22 08:52 Dose: 50 mg Sodium Bicarbonate (Sodium Bicarbonate 650 Mg Tablet) 650 mg PO BID [facility] Stop: 11/05/23 10:29 Last Admin: 11/05/22 12:03 Dose: 650 mg Sodium Chloride (Sodium Chloride 0.9 % 10 Ml Syringe) 0 ml IV-PUSH PRN PRN PRN Reason: Flush Stop: 11/04/23 13:53 Vitamin A (Vitamin A 3,000 Mcg (10,000 Units) Capsule) 3,000 mcg PO DAILY [facility] Stop: 11/05/23 08:59 Last Admin: 11/05/22 08:52 Dose: 3,000 mcg Vitamin D (Cholecalciferol 25 Mcg (1,000 Units) Tablet) 50 mcg PO DAILY [facility] Stop: 11/05/23 08:59 Last Admin: 11/05/22 08:50 [...] Lenore Lockett Jr.OHimanshu11/04/2022 3:50 PM Dictation Location: [place] [address] Any impression(s) listed above is documentation that [...] signed by Yocasta Villalba MD> 11/05/22 1439 [facility] Work Phone: Consult note Author Yocasta Villalba [facility] November 21, 2023 10:16am Note Date/Time November 21, 2023 10: 16am [facility] [address] [place] [address] Nephrology Consult Note Signed Patient: Evans Forte MR#: [id number] : 1970 Acct:[id number] Age/Sex: 53 / M Adm Date: 4 Loc: 3T Room: [address] [place] [address] Type: ADM IN Attending Dr: Arnol Calloway MD Copies to: DO Yocasta Dhillon MD Frederick E Doamekpor, MD~ Providers Consult Date: 11/21/23 Requesting Provider: Arnol Calloway MD Primary Care Provider: DO TIERA Dhillon Reason for Consult: End-stage renal disease care History of Present Illness: This is a 53-year-old male patient with a past medical history of hypertension, hyperlipidemia, end-stage renal disease on TTS hemodialysis schedule at [facility], insulin-dependent diabetes mellitus, obstructive sleep apnea, [...] system review is negative today [facility] Medical History (Updated 11/21/23 @ 10:12 by [...] 2 Surgical History History of cardiac catheterization [facility] History of orthopedic surgery right foot has [...] 1 Mg Tablet) 1 mg PO QAM [facility] Stop: 11/20/24 08:59 Last Admin: 11/21/23 08:00 Dose: 1 mg Atorvastatin Calcium (Atorvastatin 20 Mg Tablet) 20 mg PO QAM [facility] Stop: 11/20/24 08:59 Last Admin: 11/21/23 08:00 Dose: 20 mg Calcitriol (Calcitriol 0.25 Mcg Capsule) 0.25 mcg PO TuThSa@0900 [facility] Stop: 11/22/24 08:59 Calcium Acetate (Calcium Acetate 667 Mg Capsule) 2,668 mg PO AC [facility] Stop: 11/20/24 07:29 Last Admin: 11/21/23 07:54 Dose: 2,668 mg Cyanocobalamin (Cyanocobalamin 1,000 Mcg Tablet) 1,000 mcg PO DAILY [facility] Stop: 11/20/24 08:59 Last Admin: 11/21/23 08:00 Dose: 1,000 mcg Heparin Sodium (Porcine) (Heparin 5,000 Unit/Ml Vial) 5,000 unit SUBCUT Q12HR [facility] Stop: 11/20/24 08:59 Last Admin: 11/21/23 08:00 Dose: 5,000 unit Linezolid (Zyvox) 600 mg in 300 mls @ 300 mls/hr IV Q12H [facility] Last Admin: 11/21/23 09:06 Dose: 300 mls/hr Ceftriaxone Sodium (Rocephin) 2 gm in 50 mls @ 100 mls/hr IV Q24H [facility] Insulin Human Regular (Insulin Regular U-500, Human 1,500 Unit/3 Ml Insuln.Pen) 50 unit SUBCUT BID [facility] Stop: 11/20/24 08:59 Last Admin: 11/21/23 08:00 Dose: 50 unit Levothyroxine Sodium (Levothyroxine 100 Mcg Tablet) 100 mcg PO DAILY.0630 [facility] Stop: 11/20/24 06:29 Last Admin: 11/21/23 05:39 [...] Gel In Packet 1 packet TRANSDERML DAILY [facility] Stop: 11/20/24 08:59 Tirzepatide [ Mounjaro] 5 Mg/0.5 Ml Pen Injector 5 mg SUBCUT Tu@0900 [facility] Stop: 11/29/24 08:59 Ondansetron HCl (Ondansetron 4 Mg/2 Ml Vial) 4 mg IV-PUSH Q8H PRN PRN Reason: Nausea And Vomiting Stop: 11/19/24 21:02 Pregabalin (Pregabalin 150 Mg Capsule) 150 mg PO BID [facility] Stop: 05/19/24 08:59 Last Admin: 11/21/23 08:00 [...] Taqueria Reese M.D.11/21/2023 8:08 AM Dictation Location: [place] [address] Any impression(s) listed above is documentation that [...] diabetic nephropathy. Patient has been going to [facility] on TTS for hemodialysis. Last hemodialysis [...] signed by Yocasta Villalba MD> 11/21/23 1016 [facility] Work Phone: Consult note Author Chintan Hernández [facility] November 22, 2023 11:26am Note Date/Time November 22, 2023 11: 26am [facility] [address] [place] [address] Infect. Disease Consult Note Signed Patient: Evans Forte MR#: [id number] : 1970 Acct:[id number] Age/Sex: 53 / M Adm Date: 4 Loc: Room: [address] [place] [address] Type: ADM IN Attending Dr: Amy Escudero [...] noted below or in HPI [facility] Medical History (Updated 11/22/23 @ 11:24 by [...] 2 Surgical History History of cardiac catheterization [facility] History of orthopedic surgery right foot has [...] 1 Mg Tablet) 1 mg PO QAM [facility] Stop: 11/20/24 08:59 Last Admin: 11/22/23 08:14 Dose: 1 mg Atorvastatin Calcium (Atorvastatin 20 Mg Tablet) 20 mg PO QAM [facility] Stop: 11/20/24 08:59 Last Admin: 11/22/23 08:13 Dose: 20 mg Calcitriol (Calcitriol 0.25 Mcg Capsule) 0.25 mcg PO TuThSa@0900 [facility] Stop: 11/22/24 08:59 Calcium Acetate (Calcium Acetate 667 Mg Capsule) 2,668 mg PO AC [facility] Stop: 11/20/24 07:29 Last Admin: 11/22/23 08:13 Dose: 2,668 mg Cyanocobalamin (Cyanocobalamin 1,000 Mcg Tablet) 1,000 mcg PO DAILY [facility] Stop: 11/20/24 08:59 Last Admin: 11/22/23 08:13 Dose: 1,000 mcg Heparin Sodium (Porcine) (Heparin 5,000 Unit/Ml Vial) 5,000 unit SUBCUT Q12HR [facility] Stop: 11/20/24 08:59 Last Admin: 11/22/23 08:14 Dose: 5,000 unit Linezolid (Zyvox) 600 mg in 300 mls @ 300 mls/hr IV Q12H [facility] Last Admin: 11/22/23 08:58 Dose: 300 mls/hr Ceftriaxone Sodium (Rocephin) 2 gm in 50 mls @ 100 mls/hr IV Q24H [facility] Last Admin: 11/21/23 19:41 Dose: 100 mls/hr Insulin Aspart (Insulin Aspart 300 Units/3 Ml Insuln.Pen) 0 units SUBCUT ACHS [facility]; Protocol Stop: 11/20/24 16:29 Last Admin: 11/22/23 08:13 Dose: Not Given Insulin Human Regular (Insulin Regular U-500, Human 1,500 Unit/3 Ml Insuln.Pen) 50 unit SUBCUT BID [facility] Stop: 11/20/24 08:59 Last Admin: 11/22/23 08:16 Dose: 50 unit Levothyroxine Sodium (Levothyroxine 100 Mcg Tablet) 100 mcg PO DAILY.0630 [facility] Stop: 11/20/24 06:29 Last Admin: 11/22/23 05:29 [...] Gel In Packet 1 packet TRANSDERML DAILY [facility] Stop: 11/20/24 08:59 Last Admin: 11/21/23 10:14 Dose: Not Given Tirzepatide [ Mounjaro] 5 Mg/0.5 Ml Pen Injector 5 mg SUBCUT Tu@0900 [facility] Stop: 11/29/24 08:59 Ondansetron HCl (Ondansetron 4 Mg/2 Ml Vial) 4 mg IV-PUSH Q8H PRN PRN Reason: Nausea And Vomiting Stop: 11/19/24 21:02 Pregabalin (Pregabalin 150 Mg Capsule) 150 mg PO BID [facility] Stop: 05/19/24 08:59 Last Admin: 11/22/23 08:14 [...] @ 300 mls/hr IV Q12H [facility] Rx# :[id number] Output: Urine 100 / 100 Other: # [...] signed by MD Chintan Hernández> 11/22/23 1126 [facility] Work Phone: Consult note Author Gi Mondragon [facility] November 23, 2023 3:51pm Note Date/Time November 22, 2023 5:3 0pm [facility] [address] [place] [address] Podiatry Consult Note Signed Patient: Evans Forte MR#: [id number] : 1970 Acct:[id number] Age/Sex: 53 / M Adm Date: 4 Loc: Room: [address] [place] [address] Type: ADM IN Attending Dr: Amy Escudero [...] heel. He has been following with a manufacturing plant technician and family. Patient states that the ulcerations [...] noted below or in HPI [facility] Medical History (Updated 11/23/23 @ 10:16 by [...] 2 Surgical History History of cardiac catheterization [facility] History of orthopedic surgery right foot has [...] <Electronically signed by TIARA Mondragon> 11/23/23 1551 [facility] Work Phone: Discharge summary Author Chintan Brewster [facility] November 07, 2022 4:43pm Note Date/Time November 07, 2022 4:43 pm [facility] [address] [place] [address] Discharge Summary Signed Patient: Evans Forte MR#: [id number] : 1970 Acct:[id number] Age/Sex: 52 / M Adm Date: 3 Loc: Room: [address] [place] [address]: Chintan Brewster DO Copies to: [...] % (Auto) 87.5, Lymph % (Auto) 5.8, [place] % (Auto) 6.5, Eos % (Auto) 0.1, Baso % (Auto) 0.1, Nucleat RBC Rel Count 0.1, Neut # (Auto) 10.9 H, Lymph # (Auto) 0.7 L, [place] # (Auto) 0.8, Eos # (Auto) 0.0, [...] a prescription was provided. follow with your grading clerk for training on peritoneal dialysis Follow-up with [...] Patient Ordered By: Chintan Brewster Follow Up: [facility] [Outside] - 11/12/22 10:30 am (Please keep your previously scheduled follow up appointments. 11/12/22 at 10:30am 11/20/22 at 10:30am) Flakito High DO [Active Staff - D.O.] - (Call office on Wednesday to schedule follow-up with Dr. High) Idania Ricketts DO [Primary Care Provider] - 11/16/22 10:00 am (Follow-up withdileepur Primary Care Provider, call office to reschedule if needed. ) Documented By: Chintan Brewster DO 11/07/22 16 39 Signed By: <Electronically signed by Chintan Brewster DO> 11/07/22 1643 [facility] Work Phone: Discharge summary Author Amy Escudero [facility] November 24, 2023 1:40pm Note Date/Time November 23, 2023 5:0 1pm [facility] [address] [place] [address] Discharge Summary Signed Patient: Evans Forte MR#: [id number] : 1970 Acct:[id number] Age/Sex: 53 / M Adm Date: 4 Loc: Room: [address] [place] [address]: Amy Escudero DO Copies to: [...] ESRD on dialysis T-Th-S, diabetic and insulin-dependent, GUSTAVO,and neuropathy, chronic right [...] wound care and will follow-up with his manufacturing plant technician and primary care physician outpatient. Time Spent [...] % (Auto) 63.3, Lymph % (Auto) 20.6, [place] % (Auto) 9.8, Eos % (Auto) 5.6, Baso % (Auto) 0.7, Nucleat RBC Rel Count 0.0, Neut # (Auto) 4.9, Lymph # (Auto) 1.6, [place] # (Auto) 0.8, Eos # (Auto) 0.4, [...] to schedule an appointment with your established Print And Pattern Designer. HOME HEALTH TO MANAGE: Nursing to eval [...] signed by Amy Escudero DO> 11/24/23 1340 [facility] Work Phone: Evaluation + Plan note No data available for this section [facility] Evaluation noteNo InformationNort mobifriends Other Evaluation noteNo assessment information available [facility] Work Phone: Evaluation note* Diagnosis Onset Date Resolution Status Acute hyperkalemia acute Chronic kidney disease acute Hypertension acute [facility] Work Phone: Evaluation note* Diagnosis Onset Date Resolution Status Acute hyperkalemia acute Acute kidney injury superimposed on CKD acute Chronic kidney disease acute CKD (chronic kidney disease) stage 5, GFR less than 15 ml/min acute Hyperkalemia acute Hypertension acute Insulin dependent diabetes mellitus acute Metabolic acidosis acute [id number] chronic [id number] chronic [facility] Work Phone: Evaluation note* Diagnosis Onset Date Resolution Status [id number] chronic [facility] Work Phone: evaluation note* Diagnosis Peritoneal dialysis catheter dysfunction, subsequent encounter ([facility])- Primary documented in this encounter [facility] HealthcareEvaluation note* Diagnosis Onset Date Resolution Status [id number] chronic Dependence on renal dialysis acute [facility] Work Phone: Evaluation note* Diagnosis Onset Date Resolution Status Anemia of renal disease acut e Benign hypertension with end-stage renal disease acute Diabetes acute [id number] acute [id number] acute Edema of right lower extremity acute End stage renal disease acut e Fever acute Hyperparathyroidism acute Hypertension acute Hypomagnesemia acute Insulin dependent diabetes mellitus acute Sepsis acute SIRS (systemic inflammatory response syndrome) acute Type 2 diabetes mellitus wit h diabetic chronic kidney disease acute Ulcer of right foot acute Ulcer of right heel acute Vomiting acute Wound of right foot acute [facility] Work Phone: Evaluation note* Diagnosis Onset Date Resolution Status Edema of right lower extremity acute Fever resolved Hypomagnesemia resolved Sepsis resolved SIRS (systemic inflammatory response syndrome) resolved Vomiting resolved [facility] Work Phone: evaluation note* Diagnosis Onset Date Resolution Status Edema of right lower extremity acute Fever resolved Hypomagnesemia resolved Sepsis resolved SIRS (systemic inflammatory response syndrome) resolved Vomiting resolved AV fistula acute End stage renal disease acut e ESRD on hemodialysis acute [facility] Work Phone: Evaluation note* Diagnosis Onset Date Resolution Status Benign hypertension with end-stage renal disease acute Edema of right lower extremity acute Type 2 diabetes mellitus wit h diabetic chronic kidney disease acute Fever resolved Hypomagnesemia resolved Sepsis resolved SIRS (systemic inflammatory response syndrome) resolved Vomiting resolved AV fistula acute End stage renal disease acut e ESRD on hemodialysis acute [facility] Work Phone: Evaluation note* Diagnosis Onset Date [...] on hemodialysis acute ESRD on hemodialysis acute [facility] Work Phone: Evaluation note* Diagnosis Ulcer of right heel and midfoot with fat layer exposed ([facility])- Primary Type 2 diabetes mellitus with peripheral neuropathy ([facility]) Neuropathy Mononeuritis of unspecified site documented in this encounter [facility] HealthcareEvaluation note* Diagnosis Obstructive sleep apnea syndrome- Primary Obstructive sleep apnea (adult) (pediatric) Type 2 diabetes with nephropathy ([facility]/HCC) Type 2 diabetes mellitus with peripheral neuropathy ([facility]) 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, with long-term current use of insulin ([facility]) Long-term insulin use (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 [facility] Essential hypertension ([facility]/HCC[facility] Unspecified essential hypertension Peripheral vascular disease ([facility]/HCC) Unspecified peripheral vascular disease End stage renal [...] 2 diabetes mellitus with Charcot's joint arthropathy ([facility]) Type 2 diabetes mellitus with peripheral neuropathy ([facility]) Essential hypertension ([facility]) [facility]specified essential hypertension Peripheral vascular disease ([facility]) Unspecified peripheral vascular disease End stage renal disease ([facility]) End stage renal disease Acquired hypothyroidism ([facility]) Unspecified hypothyroidism Type 2 diabetes mellitus with ESRD (end-stage renal disease) ([facility]) 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, with long-term current use of insulin ([facility]) Chronic kidney disease with end stage renal disease on dialysis due to type 2 diabetes mellitus ([facility]) Dependence on renal dialysis ([facility]) Renal dialysis status Anxiety Anxiety state, unspecified Pure hypercholesterolemia ([facility]) Pure hypercholesterolemia Long-term insulin use ([facility]) Hx of amputation of lesser toe, left ([facility]) ([facility]) Other iron deficiency anemia 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 classified elsewhere ([facility]) Non-pressure chronic ulcer of other part of right foot with unspecified severity ([facility]) Type 2 diabetes mellitus with foot ulcer, with long-term current use of insulin ([facility]) Class 3 severe obesity due to excess calories with serious comorbidity and body mass index (BMI) of 40.0 to 44.9 in adult ([facility]) Type 2 diabetes mellitus with peripheral neuropathy ([facility])- Primary Anxiety Anxiety state, unspecified Ulcer of right heel and midfoot with fat layer exposed ([facility])- Primary Ulcer of right foot, limited to breakdown of skin ([facility]) Type 2 diabetes mellitus with peripheral neuropathy ([facility]) Neuropathy Mononeuritis of unspecified site Type 2 diabetes mellitus with foot ulcer, with long-term current use of insulin ([facility]) documented in this encounter [facility] HealthcareEvaluation note* Diagnosis Obstructive sleep apnea syndrome- Primary Obstructive sleep apnea (adult) (pediatric) Type 2 diabetes with nephropathy ([facility]) Type 2 diabetes mellitus with peripheral neuropathy ([facility]) 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, with long-term current use of insulin ([facility]) Long-term insulin use ([facility]) 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 (CMS/HCC) Essential hypertension ([facility]) Unspecified essential hypertension Peripheral vascular disease ([facility]/HCC) Unspecified peripheral vascular disease End stage renal disease (CMS/HCC) End stage renal disease Type 2 diabetes mellitus with ESRD (end-stage renal disease) (CMS/[facility]) Acquired hypothyroidism (CMS/[facility]) Unspecified hypothyroidism Dependence on renal dialysis (CMS/[facility]) Renal dialysis status Pure hypercholesterolemia ([facility]) Pure hypercholesterolemia Chronic maxillary sinusitis Class 3 severe obesity due to excess calories with serious comorbidity and body mass index (BMI) of 45.0 to 49.9 in adult ([facility]) Adrenal nodule (CMS/[facility]) Benign neoplasm of adrenal gland Anxiety Anxiety state, unspecified Hx of amputation of lesser toe, left (HCC) (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) Type 2 diabetes mellitus with peripheral neuropathy ([facility]) Essential hypertension ([facility] Unspecified essential hypertension Peripheral vascular disease ([facility] Unspecified peripheral vascular disease End stage renal disease ([facility] End stage renal disease Acquired hypothyroidism ([facility] Unspecified hypothyroidism Type 2 diabetes mellitus with ESRD (end-stage renal disease) ([facility]) 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, with long-term current use of insulin ([facility]) Chronic kidney disease with end stage renal disease on dialysis due to type 2 diabetes mellitus ([facility]) Dependence on renal dialysis ([facility]) Renal dialysis status Anxiety Anxiety state, unspecified Pure hypercholesterolemia (CMS/HCC) Pure hypercholesterolemia Long-term insulin use ([facility]) Hx of amputation of lesser toe, left (HCC) ([facility]) Other iron deficiency anemia 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 classified elsewhere ([facility]) Non-pressure chronic ulcer of other part of right foot with unspecified severity ([facility]) Type 2 diabetes mellitus with foot ulcer, with long-term current use of insulin ([facility]) Class 3 severe obesity due to excess calories with serious comorbidity and body mass index (BMI) of 40.0 to 44.9 in adult ([facility]) Type 2 diabetes mellitus with peripheral neuropathy (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) Type 2 diabetes mellitus with peripheral neuropathy ([facility]) Essential hypertension ([facility] Unspecified essential hypertension Peripheral vascular disease ([facility] Unspecified peripheral vascular disease End stage renal disease ([facility] End stage renal disease Acquired hypothyroidism ([facility]) Unspecified hypothyroidism Type 2 diabetes mellitus with ESRD (end-stage renal disease) ([facility]) 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, with long-term current use of insulin ([facility]) Chronic kidney disease with end stage renal disease on dialysis due to type 2 diabetes mellitus ([facility]) Anxiety Anxiety state, unspecified Dependence on renal dialysis ([facility]) Renal dialysis status Pure hypercholesterolemia ([facility]) Pure hypercholesterolemia Long-term insulin use ([facility]) Hx of amputation of lesser toe, left ([facility]) ([facility]) Class 3 severe obesity due to excess calories with serious comorbidity and body mass index (BMI) of 40.0 to 44.9 in adult ([facility]) Inguinal adenopathy Enlargement of lymph nodes documented in this encounter [facility] HealthcareEvaluation note* Diagnosis Ulcer of right heel and midfoot with fat layer exposed ([facility])- Primary Neuropathy Mononeuritis of unspecified site Ulcer of right foot, limited to breakdown of skin ([facility]) Type 2 diabetes mellitus with peripheral neuropathy ([facility]) documented in this encounter [facility]* Diagnosis 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 ([facility]) documented in this encounter [facility]* Diagnosis Ulcer of right heel and midfoot with fat layer exposed ([facility])- Primary Ulcer of right foot, limited to breakdown of skin ([facility]) documented in this encounter [facility]* Diagnosis Type 2 diabetes mellitus with peripheral neuropathy ([facility])- Primary Anxiety Anxiety state, unspecified documented in this encounter [facility]* Diagnosis Neuropathy- Primary Mononeuritis of unspecified site Type 2 diabetes mellitus with peripheral neuropathy ([facility]) documented in this encounter [facility] [...] (BMI) of 45.0 to 49.9 in adult (CMS/[facility]) Adrenal nodule (CMS/[facility]) Benign neoplasm of adrenal gland Anxiety Anxiety state, unspecified Hx of amputation of lesser toe, left (HCC) ([facility]) Obstructive sleep apnea syndrome- Primary Obstructive [...] diabetes mellitus with ESRD (end-stage renal disease) ([facility]) 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, with long-term current use of insulin (CMS/HCC) Chronic kidney disease with end stage renal disease on dialysis due to type 2 diabetes mellitus (CMS/HCC) Dependence on renal dialysis (CMS/HCC) Renal dialysis status Anxiety Anxiety state, unspecified Pure hypercholesterolemia (CMS/HCC) Pure hypercholesterolemia Long-term insulin use (CMS/HCC) Hx of amputation of lesser toe, left (HCC) (CMS/[facility]) Other iron deficiency anemia 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 classified elsewhere ([facility]) Non-pressure chronic ulcer of other part of right foot with unspecified severity ([facility]) Type 2 diabetes mellitus with foot ulcer, with long-term current use of insulin ([facility]) Class 3 severe obesity due to excess calories with serious comorbidity and body mass index (BMI) of 40.0 to 44.9 in adult ([facility]) Type 2 diabetes mellitus with peripheral neuropathy (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) Type 2 diabetes mellitus with peripheral neuropathy ([facility]) Essential hypertension ([facility] Unspecified essential hypertension Peripheral vascular disease ([facility] Unspecified peripheral vascular disease End stage renal disease ([facility]) End stage renal disease Acquired hypothyroidism ([facility]) Unspecified hypothyroidism Type 2 diabetes mellitus with ESRD (end-stage renal disease) ([facility]) 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, with long-term current use of insulin ([facility]) Chronic kidney disease with end stage renal disease on dialysis due to type 2 diabetes mellitus ([facility]) Anxiety Anxiety state, unspecified Dependence on renal dialysis ([facility]) Renal dialysis status Pure hypercholesterolemia ([facility]) Pure hypercholesterolemia Long-term insulin use ([facility]) Hx of amputation of lesser toe, left ([facility]) ([facility]) Class 3 severe obesity due to excess calories with serious comorbidity and body mass index (BMI) of 40.0 to 44.9 in adult ([facility]) Inguinal adenopathy Enlargement of lymph nodes Chronic venous insufficiency- Primary Unspecified venous (peripheral) insufficiency Lymphedema Other noninfectious lymphedema documented in this encounter [facility] HealthcareEvaluation note* Diagnosis Obstructive sleep apnea syndrome- Primary Obstructive sleep apnea (adult) (pediatric) Type 2 diabetes with nephropathy ([facility]) Type 2 diabetes mellitus with peripheral neuropathy ([facility]) 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, with long-term current use of insulin ([facility]) Long-term insulin use (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 Essential hypertension ([facility] Unspecified essential hypertension Peripheral vascular disease ([facility] Unspecified peripheral vascular disease End stage renal disease ([facility]) End stage renal disease Type 2 diabetes mellitus with ESRD (end-stage renal disease) ([facility]) Acquired hypothyroidism ([facility]) Unspecified hypothyroidism Dependence on renal dialysis ([facility]) Renal dialysis status Pure hypercholesterolemia ([facility]) Pure hypercholesterolemia Chronic maxillary sinusitis Class 3 severe obesity due to excess calories with serious comorbidity and body mass index (BMI) of 45.0 to 49.9 in adult ([facility]) Adrenal nodule ([facility]) Benign neoplasm of adrenal gland Anxiety Anxiety state, unspecified Hx of amputation of lesser toe, left (HCC) (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) Type 2 diabetes mellitus with peripheral neuropathy ([facility]) Essential hypertension ([facility] Unspecified essential hypertension Peripheral vascular disease ([facility] Unspecified peripheral vascular disease End stage renal disease ([facility] End stage renal disease Acquired hypothyroidism ([facility]) Unspecified hypothyroidism Type 2 diabetes mellitus with ESRD (end-stage renal disease) ([facility]) 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, with long-term current use of insulin ([facility]) Chronic kidney disease with end stage renal disease on dialysis due to type 2 diabetes mellitus ([facility]) Dependence on renal dialysis ([facility]) Renal dialysis status Anxiety Anxiety state, unspecified Pure hypercholesterolemia ([facility]) Pure hypercholesterolemia Long-term insulin use ([facility]) Hx of amputation of lesser toe, left (HCC) ([facility]) Other iron deficiency anemia 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 classified elsewhere ([facility]) Non-pressure chronic ulcer of other part of right foot with unspecified severity ([facility]) Type 2 diabetes mellitus with foot ulcer, with long-term current use of insulin ([facility]) Class 3 severe obesity due to excess calories with serious comorbidity and body mass index (BMI) of 40.0 to 44.9 in adult ([facility]) Type 2 diabetes mellitus with peripheral neuropathy (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) Type 2 diabetes mellitus with peripheral neuropathy ([facility]) Essential hypertension (CMS/HCC) Unspecified essential hypertension Peripheral vascular disease (CMS/HCC) Unspecified peripheral vascular disease End stage renal disease (CMS/HCC) End stage renal disease Acquired hypothyroidism (CMS/HCC) Unspecified hypothyroidism Type 2 diabetes mellitus with ESRD (end-stage renal disease) ([facility]) 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, with long-term current use of insulin (CMS/[facility]) Chronic kidney disease with end stage renal disease on dialysis due to type 2 diabetes mellitus (CMS/[facility]) Anxiety Anxiety state, unspecified Dependence on renal dialysis (CMS/HCC) Renal dialysis status Pure hypercholesterolemia (CMS/HCC) Pure hypercholesterolemia Long-term insulin use (CMS/[facility]) Hx of amputation of lesser toe, left ([facility]) ([facility]) Class 3 severe obesity due to excess calories with serious comorbidity and body mass index (BMI) of 40.0 to 44.9 in adult ([facility]) Inguinal adenopathy Enlargement of lymph nodes Ulcer of right heel and midfoot with fat layer exposed ([facility])- Primary Ulcer of right foot, limited to breakdown of skin ([facility]) Type 2 diabetes mellitus with peripheral neuropathy ([facility]) Neuropathy Mononeuritis of unspecified site documented in this encounter [facility]* Diagnosis Obstructive sleep apnea syndrome- Primary Obstructive sleep apnea (adult) (pediatric) Type 2 diabetes with nephropathy ([facility]) Type 2 diabetes mellitus with peripheral neuropathy ([facility]) 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, with long-term current use of insulin ([facility]) Long-term insulin use (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) Essential hypertension ([facility] Unspecified essential hypertension Peripheral vascular disease ([facility]) Unspecified peripheral vascular disease End stage renal disease ([facility]) End stage renal disease Type 2 diabetes mellitus with ESRD (end-stage renal disease) ([facility]) Acquired hypothyroidism ([facility]) Unspecified hypothyroidism Dependence on renal dialysis ([facility]) Renal dialysis status Pure hypercholesterolemia ([facility]/HCC) Pure hypercholesterolemia Chronic maxillary sinusitis Class 3 severe obesity due to excess calories with serious comorbidity and body mass index (BMI) of 45.0 to 49.9 in adult ([facility]) Adrenal nodule ([facility]) Benign neoplasm of adrenal gland Anxiety Anxiety state, unspecified Hx of amputation of lesser toe, left (HCC) (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) Essential hypertension ([facility]) Unspecified essential hypertension Peripheral vascular disease ([facility]/HCC) Unspecified peripheral vascular disease End stage renal disease ([facility]) End stage renal disease Acquired hypothyroidism ([facility] Unspecified hypothyroidism Type 2 diabetes mellitus with ESRD (end-stage renal disease) ([facility]) 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, with long-term current use of insulin ([facility]) Chronic kidney disease with end stage renal disease on dialysis due to type 2 diabetes mellitus ([facility]) Dependence on renal dialysis ([facility]) Renal dialysis status Anxiety Anxiety state, unspecified Pure hypercholesterolemia ([facility]) Pure hypercholesterolemia Long-term insulin use ([facility]) Hx of amputation of lesser toe, left (HCC) ([facility]) Other iron deficiency anemia 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 classified elsewhere ([facility]) Non-pressure chronic ulcer of other part of right foot with unspecified severity ([facility]) Type 2 diabetes mellitus with foot ulcer, with long-term current use of insulin ([facility]) Class 3 severe obesity due to excess calories with serious comorbidity and body mass index (BMI) of 40.0 to 44.9 in adult ([facility]) Type 2 diabetes mellitus with peripheral neuropathy (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) Essential hypertension ([facility] Unspecified essential hypertension Peripheral vascular disease ([facility]) Unspecified peripheral vascular disease End stage renal disease ([facility] End stage renal disease Acquired hypothyroidism ([facility]) Unspecified hypothyroidism Type 2 diabetes mellitus with ESRD (end-stage renal disease) ([facility]) 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, with long-term current use of insulin ([facility]/HCC) Chronic kidney disease with end stage renal [...] (BMI) of 40.0 to 44.9 in adult (CMS/[facility]) Inguinal adenopathy Enlargement of lymph nodes Lymphedema- Primary Other noninfectious lymphedema End stage renal disease (CMS/HCC) End stage renal disease Venous stasis dermatitis documented in this encounter [facility]* Diagnosis Obstructive sleep apnea syndrome- Primary Obstructive sleep apnea (adult) (pediatric) Type 2 diabetes with nephropathy (CMS/[facility]) Type 2 diabetes mellitus with peripheral neuropathy ([facility]) 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, with long-term current use of insulin ([facility]/HCC) Long-term insulin use (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) Essential hypertension (CMS/HCC) Unspecified essential hypertension Peripheral vascular disease (CMS/HCC) Unspecified peripheral vascular disease End stage renal disease ([facility]/HCC) End stage renal disease Type 2 diabetes mellitus with ESRD (end-stage renal disease) (CMS/HCC) Acquired hypothyroidism ([facility]) Unspecified hypothyroidism Dependence on renal dialysis (CMS/HCC) Renal dialysis status Pure hypercholesterolemia (CMS/HCC) Pure hypercholesterolemia Chronic maxillary sinusitis Class 3 severe obesity due to excess calories with serious comorbidity and body mass index (BMI) of 45.0 to 49.9 in adult (CMS/HCC) Adrenal nodule (CMS/HCC) Benign neoplasm of adrenal gland Anxiety Anxiety state, unspecified Hx of amputation of lesser toe, left (HCC) (CMS/[facility]) Obstructive sleep apnea syndrome- Primary Obstructive [...] diabetes mellitus with ESRD (end-stage renal disease) ([facility]) 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, with long-term current use of insulin ([facility]) Chronic kidney disease with end stage renal disease on dialysis due to type 2 diabetes mellitus ([facility]) Dependence on renal dialysis ([facility]) Renal dialysis status Anxiety Anxiety state, unspecified Pure hypercholesterolemia ([facility]) Pure hypercholesterolemia Long-term insulin use ([facility]) Hx of amputation of lesser toe, left (HCC) ([facility]) Other iron deficiency anemia 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 classified elsewhere ([facility]) Non-pressure chronic ulcer of other part of right foot with unspecified severity ([facility]) Type 2 diabetes mellitus with foot ulcer, with long-term current use of insulin ([facility]) Class 3 severe obesity due to excess calories with serious comorbidity and body mass index (BMI) of 40.0 to 44.9 in adult ([facility]) Type 2 diabetes mellitus with peripheral neuropathy (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) Type 2 diabetes mellitus with peripheral neuropathy ([facility]) Essential hypertension ([facility] Unspecified essential hypertension Peripheral vascular disease ([facility]) Unspecified peripheral vascular disease End stage renal disease ([facility] End stage renal disease Acquired hypothyroidism ([facility] Unspecified hypothyroidism Type 2 diabetes mellitus with ESRD (end-stage renal disease) ([facility]) 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, with long-term current use of insulin ([facility]) Chronic kidney disease with end stage renal disease on dialysis due to type 2 diabetes mellitus ([facility]) Anxiety Anxiety state, unspecified Dependence on renal dialysis ([facility]) Renal dialysis status Pure hypercholesterolemia ([facility]) Pure hypercholesterolemia Long-term insulin use ([facility]) Hx of amputation of lesser toe, left (HCC) ([facility]) Class 3 severe obesity due to excess calories with serious comorbidity and body mass index (BMI) of 40.0 to 44.9 in adult ([facility]) Inguinal adenopathy Enlargement of lymph nodes Bilious vomiting with nausea- Primary Type 2 diabetes mellitus with peripheral neuropathy (CMS/HCC) documented in this encounter [facility]* Diagnosis Obstructive sleep apnea syndrome- [...] due to type 2 diabetes mellitus (CMS/HCC) Dependence on renal dialysis (CMS/HCC) Renal dialysis status Anxiety Anxiety state, unspecified Pure hypercholesterolemia (CMS/HCC) Pure hypercholesterolemia Long-term insulin use (CMS/HCC) Hx of amputation of lesser toe, left (HCC) (CMS/HCC) Other iron deficiency anemia 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 classified elsewhere ([facility]) Non-pressure chronic ulcer of other part of right foot with unspecified severity ([facility]) Type 2 diabetes mellitus with foot ulcer, with long-term current use of insulin ([facility]) Class 3 severe obesity due to excess calories with serious comorbidity and body mass index (BMI) of 40.0 to 44.9 in adult ([facility]) Type 2 diabetes mellitus with peripheral neuropathy (CMS/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) Unspecified essential hypertension Peripheral vascular disease ([facility] Unspecified peripheral vascular disease End stage renal disease ([facility]) End stage renal disease Acquired hypothyroidism ([facility]) Unspecified hypothyroidism Type 2 diabetes mellitus with ESRD (end-stage renal disease) ([facility]) 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, with long-term current use of insulin ([facility]) Chronic kidney disease with end stage renal disease on dialysis due to type 2 diabetes mellitus ([facility]) Anxiety Anxiety state, unspecified Dependence on renal dialysis ([facility]) Renal dialysis status Pure hypercholesterolemia ([facility]/HCC) Pure hypercholesterolemia Long-term insulin use ([facility]) Hx of amputation of lesser toe, left ([facility]) ([facility]) Class 3 severe obesity due to excess calories with serious comorbidity and body mass index (BMI) of 40.0 to 44.9 in adult ([facility]) Inguinal adenopathy Enlargement of lymph nodes Bilious vomiting with nausea- Primary Type 2 diabetes mellitus with peripheral neuropathy (CMS/HCC) Neuropathy- Primary Mononeuritis of unspecified site Ulcer of right heel and midfoot with fat layer exposed ([facility]) Ulcer of right foot, limited to breakdown of skin ([facility]) Type 2 diabetes mellitus with peripheral neuropathy ([facility]) Chronic kidney disease due to diabetes mellitus ([facility]) documented in this encounter [facility] HealthcareEvaluation note* Diagnosis Obstructive sleep apnea syndrome- Primary Obstructive sleep apnea (adult) (pediatric) Type 2 diabetes with nephropathy (CMS/HCC) Type 2 diabetes mellitus with peripheral neuropathy ([facility]/HCC) 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, with long-term current use of insulin ([facility]) Long-term insulin use (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) Essential hypertension ([facility] Unspecified essential hypertension Peripheral vascular disease (CMS/[facility]) Unspecified peripheral vascular disease End stage renal disease (CMS/[facility]) End stage renal disease Type 2 diabetes mellitus with ESRD (end-stage renal disease) (CMS/[facility]) Acquired hypothyroidism (CMS/[facility]) Unspecified hypothyroidism Dependence on renal dialysis (CMS/[facility]) Renal dialysis status Pure hypercholesterolemia (CMS/[facility]) Pure hypercholesterolemia Chronic maxillary sinusitis Class 3 severe obesity due to excess calories with serious comorbidity and body mass index (BMI) of 45.0 to 49.9 in adult Adrenal nodule ([facility]) Benign neoplasm of adrenal gland Anxiety Anxiety state, unspecified Hx of amputation of lesser toe, left (HCC) (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) Type 2 diabetes mellitus with peripheral neuropathy ([facility]) Essential hypertension ([facility] Unspecified essential hypertension Peripheral vascular disease ([facility] Unspecified peripheral vascular disease End stage renal disease ([facility] End stage renal disease Acquired hypothyroidism ([facility] Unspecified hypothyroidism Type 2 diabetes mellitus with ESRD (end-stage renal disease) ([facility]) 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, with long-term current use of insulin ([facility]) Chronic kidney disease with end stage renal disease on dialysis due to type 2 diabetes mellitus ([facility]) Dependence on renal dialysis ([facility]) Renal dialysis status Anxiety Anxiety state, unspecified Pure hypercholesterolemia (CMS/[facility]) Pure hypercholesterolemia Long-term insulin use ([facility]) Hx of amputation of lesser toe, left (HCC) ([facility]) Other iron deficiency anemia 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 classified elsewhere ([facility]) Non-pressure chronic ulcer of other part of right foot with unspecified severity ([facility]) Type 2 diabetes mellitus with foot ulcer, with long-term current use of insulin ([facility]) Class 3 severe obesity due to [...] mellitus with peripheral neuropathy (CMS/HCC) Essential hypertension (CMS/[facility]) Unspecified essential hypertension Peripheral vascular disease (CMS/HCC) Unspecified peripheral vascular disease End stage renal disease (CMS/[facility]) End stage renal disease Acquired hypothyroidism ([facility]) Unspecified hypothyroidism Type 2 diabetes mellitus with ESRD (end-stage renal disease) ([facility]) 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, with long-term current use of insulin ([facility]) Chronic kidney disease with end stage renal disease on dialysis due to type 2 diabetes mellitus ([facility]) Anxiety Anxiety state, unspecified Dependence on renal dialysis ([facility]) Renal dialysis status Pure hypercholesterolemia ([facility]) Pure hypercholesterolemia Long-term insulin use ([facility]) Hx of amputation of lesser toe, left ([facility]) (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)- Primary Type 2 diabetes mellitus with peripheral neuropathy ([facility]) Obstructive sleep apnea syndrome Obstructive sleep apnea (adult) (pediatric) Essential hypertension ([facility]/HCC) Unspecified essential hypertension Peripheral vascular disease ([facility]/HCC) Unspecified peripheral vascular disease End stage renal disease ([facility]) End stage renal disease Type 2 diabetes mellitus with foot ulcer, with long-term current use of insulin ([facility]) Acquired hypothyroidism ([facility]) Unspecified hypothyroidism 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, with long-term current use of insulin ([facility]) Class 3 severe obesity due to [...] of amputation of lesser toe, left (HCC) ([facility]/HCC) documented in this encounter [facility] HealthcareEvaluation note* Diagnosis Idiopathic peripheral neuropathy- Primary Unspecified hereditary and idiopathic peripheral neuropathy End stage renal disease (HCC) End stage renal disease Hyperkalemia Hyperpotassemia Idiopathic peripheral neuropathy Unspecified hereditary and idiopathic peripheral neuropathy [facility] Onset Date Resolution Status [...] mellitus with ESRD (end-stage renal disease) (HCC) Acquired hypothyroidism Unspecified hypothyroidism Dependence on renal dialysis Renal dialysis status Pure hypercholesterolemia Pure hypercholesterolemia Chronic maxillary sinusitis Class 3 severe obesity due to excess calories with serious comorbidity and body mass index (BMI) of 45.0 to 49.9 in adult ([facility]-H[facility]) Adrenal nodule (HCC) Benign neoplasm of adrenal gland Anxiety Anxiety state, unspecified Hx of amputation of lesser toe, left ([facility]) Obstructive sleep apnea syndrome- Primary Obstructive sleep [...] diabetes mellitus with ESRD (end-stage renal disease) ([facility]) 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, with long-term current use of insulin ([facility]) Chronic kidney disease with end stage renal disease on dialysis due to type 2 diabetes mellitus ([facility]) Dependence on renal dialysis Renal dialysis status Anxiety Anxiety state, unspecified Pure hypercholesterolemia Pure hypercholesterolemia Long-term insulin use (HCC) Hx of amputation of lesser toe, left ([facility]) Other iron deficiency anemia 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 classified elsewhere ([facility]) Non-pressure chronic ulcer of other part of right foot with unspecified severity ([facility]) Type 2 diabetes mellitus with foot ulcer, with long-term current use of insulin ([facility]) Class 3 severe obesity due to excess calories with serious comorbidity and body mass index (BMI) of 40.0 to 44.9 in adult ([facility]) Type 2 diabetes mellitus with peripheral neuropathy (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) Type 2 diabetes mellitus with peripheral neuropathy ([facility]) Essential hypertension Unspecified essential hypertension Peripheral vascular disease Unspecified peripheral vascular disease End stage renal disease (HCC) End stage renal disease Acquired hypothyroidism Unspecified hypothyroidism Type 2 diabetes mellitus with ESRD (end-stage renal disease) ([facility]) 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, with long-term current use of insulin ([facility]) Chronic kidney disease with end stage renal disease on dialysis due to type 2 diabetes mellitus ([facility]) Anxiety Anxiety state, unspecified Dependence on renal dialysis Renal dialysis status Pure hypercholesterolemia Pure hypercholesterolemia Long-term insulin use ([facility]) Hx of amputation of lesser toe, left ([facility]) Class 3 severe obesity due to excess calories with serious comorbidity and body mass index (BMI) of 40.0 to 44.9 in adult ([facility]) Inguinal adenopathy Enlargement of lymph nodes Bilious vomiting with nausea- Primary Type 2 diabetes mellitus with peripheral neuropathy (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)- Primary Type 2 diabetes mellitus with peripheral neuropathy ([facility]) Obstructive sleep apnea syndrome Obstructive sleep [...] edema, with long-term current use of insulin ([facility]) Class 3 severe obesity due to excess calories with serious comorbidity and body mass index (BMI) of 40.0 to 44.9 in adult ([facility]) Chronic kidney disease with end stage renal disease on dialysis due to type 2 diabetes mellitus ([facility]) Anxiety Anxiety state, unspecified Dependence on renal dialysis Renal dialysis status Pure hypercholesterolemia Pure hypercholesterolemia Long-term insulin use (HCC) Hx of amputation of lesser toe, left (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) documented in this encounter [facility] HealthcareEvaluation note* Diagnosis Spinal stenosis of lumbar region with neurogenic claudication- Primary Diabetic peripheral neuropathy ([facility]) Type II or unspecified type diabetes mellitus with neurological manifestations, not stated as uncontrolled Spinal stenosis of lumbar region with neurogenic claudication- Primary Spinal stenosis of lumbar region with neurogenic claudication [facility] Author Chintan Brewster [facility] November 04, 2022 8:11pm Note Date/Time November 04, 2022 8:11 pm [facility] [address] [place] [address] Hospitalist H&P Signed Patient: Evans Forte MR#: [id number] : 1970 Acct:[id number] Age/Sex: 52 / M Adm Date: 3 Loc: ER Room: Type: [facility] ER Attending Dr: Copies to: DO Delano Dhillon MD Michael R. Frings, DO~ HPI DATE OF EXAMINATION: 11/04/22 CHIEF COMPLAINT: Abnormal labs HISTORY OF PRESENT ILLNESS: This patient is a 52-year-old male who presented to the emergency department earlier today with a chief complaint of abnormal labs at the recommendation of his grading clerk. He is in preparation for peritoneal dialysis [...] protein. The patient was admitted to the [facility] floor for further evaluation and treatment after [...] % (Auto) 12.4 % (.) 11/04/22 15:11 [place] % (Auto) 9.0 % (.) 11/04/22 15:11 Eos % (Auto) 2.7 % (.) 11/04/22 15:11 Baso % (Auto) 1.1 % (.) 11/04/22 15:11 Nucleat RBC Rel Count 0.0 /100 WBC (0-0.5) 11/04/22 15:11 Neut # (Auto) 9.1 x10E3/uL (1.8-7.7) H 11/04/22 15:11 Lymph # (Auto) 1.5 x10E3/uL (1.00-4.8) 11/04/22 15:11 [place] # (Auto) 1.1 x10E3/uL (0.0-0.8) H 11/04/22 [...] pH 5.5 (5.0-9.0) 11/04/22 14:04 Ur Specific [place] 1.013 (1.001-1.030) 11/04/22 14:04 Urine Protein 300 [...] <Electronically signed by Chintan Brewster DO> 11/04/222010 [facility] Work Phone: History and physical note Author Buddy Murguia [facility] November 20, 2023 10:57pm Note Date/Time November 20, 2023 10: 38pm [facility] [address] [place] [address] Hospitalist H&P Signed Patient: Evans Forte MR#: [id number] : 1970 Acct:[id number] Age/Sex: 53 / M Adm Date: 4 Loc: Room: [address] [place] [address] Type: ADM IN Attending Dr: Buddy Murguia DO Copies to: DO Buddy Dhillon DO~ HPI DATE OF EXAMINATION: 11/20/23 CHIEF COMPLAINT: nauseas HISTORY OF PRESENT ILLNESS: Mr Forte is a 53-year-old male who with a past medical history of hypertension, hyperlipidemia, ESRD on dialysis T--, diabetic and insulin-dependent, GUSTAVO, and neuropathy who [...] noted below or in HPI [facility] Medical History (Updated 11/20/23 @ 22:54 by [...] 2 Surgical History History of cardiac catheterization [facility] History of orthopedic surgery right foot has [...] 19:00 Lymph % (Auto) N/A 11/20/23 19:00 [place] % (Auto) N/A 11/20/23 19:00 Eos % (Auto) N/A 11/20/23 19:00 Baso % (Auto) N/A 11/20/23 19:00 Nucleat RBC Rel Count N/A 11/20/23 19:00 Neut # (Auto) N/A 11/20/23 19:00 Lymph # (Auto) N/A 11/20/23 19:00 [place] # (Auto) N/A 11/20/23 19:00 Eos # [...] days): 3 Documented By: Buddy Murguia DO 11/20/232236 Signed By: <Electronically signed by Buddy Murguia, > 11/20/23 5130 [facility] Work Phone: Hisswfe general Narrative - Reported* Type Description Date [...] above Hospitalization History INFECTION IN LEFT FOOT [employer] Other Histiim general Narrative - Reported* Type Description Date Medical History ANEMIA Medical History STAGE 5 CHRONIC KIDN EY DISEASAE; UNDERGOING WORK UP FOR TRANSPLANT AT [facility] 2022 Medical History HYPERTENSION Medical History HYPERLIPIDEMIA Medical History HYPOTHYROIDISM Medical History PANCREATITIS X2 Medical History 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 Surgical History HEART CATH 09/2018 Surgical History Right foot surgery 12/2018 Surgical History Left foot surgery 2018 Hospitalization History WOUND ON LEG 02/07/17 Hospitalization History see above Hospitalization History INFECTION IN LEFT FOOT [employer] Other history general Narrative - Reported* Type Description Date Medical History ANEMIA Medical History STAGE 5 CHRONIC KIDN EY DISEASAE; UNDERGOING WORK UP FOR TRANSPLANT AT [facility] 2022 Medical History HYPERTENSION Medical History HYPERLIPIDEMIA [...] above Hospitalization History INFECTION IN LEFT FOOT [employer] Other Hospital Discharge instructions Additional Instructions Call your primary doctor later today for follow-up appointment next week You can take trazodone to help you with your sleep as needed, use the Ativan only as needed for anxiety [facility] worsening [facility] Work Phone: Hospital Discharge instructions Additional Instructions Bananas, rice, applesauce, toast to formed stool Follow-up with nephrology as planned on Wednesday Here if you develop any chest pain, shortness of breath, fevers, chills or any other concerns Trazodone to help you sleep as needed Zofran for nausea as needed Monitor your blood sugarsReg[facility] Work Phone: Hospital Discharge instructionsAmbulatory Orders* DME [...] a prescription was provided. follow with your grading clerk for training on peritoneal dialysis Follow-up with Dr. High in the office in 1 [facility] Work Phone: Hospital Discharge instructions Additional [...] first post-op visit, call the office at [phone] anytime. We have an answering service which will contact the doctor at anytime. -[facility] Work Phone: Hospital Discharge instructions Additional Instructions [...] first post-op visit, call the office at [phone] anytime. We have an answering service which will contact the doctor at anytime. -[facility] as [facility] Work Phone: Hospital Discharge instructions Additional Instructions If your symptoms return/worsen or you develop any further concerns or symptoms please see your doctor or return to the emergency department immediately.[facility] Work Phone: Hospital Discharge instructions Additional Instructions Follow-up with your primary care doctor Return to ED for present symptoms or concernsReg[facility] Work Phone: Hospital Discharge instructions Additional Instructions [...] sure you are taking medications as prescribed. [facility] Work Phone: Hospital Discharge instructions Additional Instructions Call pain management tomorrow for additional refills Return to ER as neededReg[facility] Work Phone: Progress note Author Chintan Brewster [facility] November 05, 2022 3:55pm Note Date/Time November 05, 2022 3:55 pm [facility] [address] [place] [address] Hospitalist Progress Note Signed Patient: Evans Forte MR#: [id number] : 1970 Acct:[id number] Age/Sex: 52 / M Adm Date: 3 Loc: 4P Room: 9H0544-9 Type: ADM IN Attending Dr: Chintan Brewster [...] 09:00 11/05/22 08:52 Ferrous Sulfate 324 Mg Tablet.Dr PO 11/05/23 08:59 324 mg DAILY VINCE Administration Folic Acid 1 tab 11/05/22 09:00 11/05/22 08:48 Cyanocobalamin/Fa/Pyridoxine 1 Tab Tablet PO 11/05/23 08:59 1 tab DAILY VINCE Administration Furosemide 80 mg 11/06/22 08:00 Furosemide 80 Mg Tablet PO 11/06/23 07:59 DAILY.8A [facility] Heparin Sodium (Porcine) 5,000 unit 11/05/22 14:00 [...] Unit/3 Ml Insuln.Pen SUBCUT 11/05/23 16:59 DAILY@1700 [facility] Insulin Human Regular 70 unit 11/05/22 06:00 11/05/22 08:05 Insulin Regular U-500, Human 1,500 Unit/3 Ml Insuln.Pen SUBCUT 11/05/23 05:59 70 unit DAILY@0600 [facility] Administration Labetalol HCl 10 mg 11/04/22 16:32 [...] <Electronically signed by Chintan Brewster DO> 11/05/22 4298 [facility] Work Phone: Progress note Author Yocasta Villalba [facility] November 06, 2022 2:57pm Note Date/Time November 06, 2022 2:57 pm [facility] [address] [place] [address] Nephrology Progress Note Signed Patient: Evans Forte MR#: [id number] : 1970 Acct:[id number] Age/Sex: 52 / M Adm Date: 3 Loc: Room: [address] [place] [address] Type: ADM IN Attending Dr: Chintan Brewster DO Copies to: ~ Date of Service: 11/06/2022 Subjective Subjective Narrative: This is a 52-year-old male patient with a past sickle history of chronic kidney disease stage V from diabetic nephropathy, hypertension, morbid obesity, anemia of renal disease, neuropathy. Patient was referred to the hospital by his grading clerk Dr. Waters for hyperkalemia with potassium 5.9 [...] 500 Mg Tablet) 500 mg PO DAILY [facility] Stop: 11/05/23 08:59 Last Admin: 11/06/22 10:32 Dose: Not Given Atorvastatin Calcium (Atorvastatin 20 Mg Tablet) 20 mg PO DAILY VINCE Stop: 11/05/23 08:59 Last Admin: 11/06/22 10:32 Dose: Not Given Carvedilol (Carvedilol 25 Mg Tablet) 25 mg PO BID [facility] Stop: 11/04/23 20:59 Last Admin: 11/06/22 09:05 Dose: 25 mg Docusate Sodium (Docusate 100 Mg Capsule) 100 mg PO BID [facility] Stop: 11/06/23 20:59 Droperidol (Droperidol 5 Mg/2 Ml Vial) 1.25 mg IV-PUSH ONCE PRN PRN Reason: Nausea And Vomiting Stop: 11/06/22 16:28 Emollient Ointment (Petrolatum,White 99 Gm Oint...G.) 1 applic TOPICAL DAILY [facility] Stop: 11/05/23 09:59 Last Admin: 11/06/22 09:05 Dose: 1 applic Fenofibrate (Fenofibrate Nanocrystallized 145 Mg Tablet) 145 mg PO DAILY [facility] Stop: 11/05/23 08:59 Last Admin: 11/05/22 08:48 Dose: 145 mg Ferrous Sulfate (Ferrous Sulfate 324 Mg Tablet.Dr) 324 mg PO DAILY [facility] Stop: 11/05/23 08:59 Last Admin: 11/06/22 10:32 Dose: Not Given Folic Acid (Cyanocobalamin/Fa/Pyridoxine 1 Tab Tablet) 1 tab PO DAILY [facility] Stop: 11/05/23 08:59 Last Admin: 11/06/22 10:32 Dose: Not Given Heparin Sodium (Porcine) (Heparin 5,000 Unit/Ml Vial) 5,000 unit SUBCUT Q8HR [facility] Stop: 11/05/23 13:59 Last Admin: 11/06/22 14:15 Dose: Not Given Hydralazine HCl (Hydralazine 20 Mg/Ml Vial) 10 mg IV-PUSH Q4H PRN PRN Reason: if SBP > 185 Stop: 11/04/23 23:30 Last Admin: 11/04/22 23:40 Dose: 10 mg Hydralazine HCl (Hydralazine 50 Mg Tablet) 50 mg PO TID [facility] Stop: 11/05/23 05:59 Last Admin: 11/06/22 10:32 Dose: Not Given Sodium Chloride (0.9% Sodium Chloride 500 Ml) 500 mls @ 20 mls/hr IV ONCE ONE Stop: 11/07/22 10:00 Last Admin: 11/06/22 10:37 Dose: 20 mls/hr Ferric Sodium Gluconate Complex 250 mg/ Sodium Chloride 270 mls @ 135 mls/hr IVQAM [facility] Stop: 11/09/22 09:01 Last Infusion: 11/06/22 13:03 Dose: Infused Insulin Human Regular (Insulin Regular U-500, Human 1,500 Unit/3 Ml Insuln.Pen) 45 unit SUBCUT DAILY@1700 [facility] Stop: 11/05/23 16:59 Last Admin: 11/05/22 18:24 Dose: 45 unit Insulin Human Regular (Insulin Regular U-500, Human 1,500 Unit/3 Ml Insuln.Pen) 70 unit SUBCUT DAILY@0600 [facility] Stop: 11/05/23 05:59 Last Admin: 11/06/22 06:25 [...] 100 Mcg Tablet) 100 mcg PO DAILY@0630 [facility] Stop: 11/05/23 06:29 Last Admin: 11/06/22 06:38 Dose: Not Given Lidocaine HCl (Lidocaine 1% 20 Ml Vial) 0.1 ml INTRADERMA PREOP PRN PRN Reason: Venipuncture Stop: 11/06/22 15:01 Lidocaine HCl (Lidocaine 1% 20 Ml Vial) 0.1 ml INTRADERMA PREOP PRN PRN Reason: Venipuncture Stop: 11/06/22 18:34 Nifedipine (Nifedipine Er.24hr 90 Mg Tab.Er.24) 90 mg PO DAILY [facility] Stop: 11/05/23 08:59 Last Admin: 11/06/22 10:32 Dose: Not Given Ondansetron HCl (Ondansetron 4 Mg/2 Ml Vial) 4 mg IV-PUSH ONCE PRN PRN Reason: Nausea/Vomiting Stop: 11/06/22 16:28 Pregabalin (Pregabalin 50 Mg Capsule) 50 mg PO DAILY [facility] Stop: 05/04/23 08:59 Last Admin: 11/06/22 10:32 Dose: Not Given Sodium Bicarbonate (Sodium Bicarbonate 650 Mg Tablet) 1,300 mg PO BID [facility] Stop: 11/05/23 10:29 Last Admin: 11/06/22 10:32 Dose: Not Given Sodium Chloride (Sodium Chloride 0.9 % 10 Ml Syringe) 0 ml IV-PUSH PRN PRN PRN Reason: Flush Stop: 11/04/23 13:53 Sodium Zirconium Cyclosilicate 10 gm/ Sodium Zirconium Cyclosilicate 5 gm 15 gmPO DAILY [facility] Stop: 11/06/23 10:29 Vitamin A (Vitamin A 3,000 Mcg (10,000 Units) Capsule) 3,000 mcg PO DAILY [facility] Stop: 11/05/23 08:59 Last Admin: 11/06/22 10:32 Dose: Not Given Vitamin D (Cholecalciferol 25 Mcg (1,000 Units) Tablet) 50 mcg PO DAILY [facility] Stop: 11/05/23 08:59 Last Admin: 11/06/22 10:32 Dose: Not Given Zinc Gluconate (Zinc Gluconate 50 Mg Tablet) 50 mg PO DAILY [facility] Stop: 11/05/23 08:59 Last Admin: 11/06/22 10:32 [...] in a.m. Documented By: Yocasta Villalba MD 11/06/221452 Signed By: <Electronically signed by Yocasta Villalba MD> 11/06/22 3034 [facility] Work Phone: Progress note Author Chintan Brewster [facility] November 06, 2022 5:26pm Note Date/Time November 06, 2022 5:26 pm [facility] [address] [place] [address] Hospitalist Progress Note Signed Patient: Evans Forte MR#: [id number] : 1970 Acct:[id number] Age/Sex: 52 / M Adm Date: 3 Loc: Room: [address] [place] [address] Type: ADM IN Attending Dr: Chintan Brewster [...] Tablet PO 11/05/23 08:59 Not Given DAILY [facility] Heparin Sodium (Porcine) 5,000 unit 11/05/22 14:00 11/06/22 14:15 Heparin 5,000 Unit/Ml Vial SUBCUT 11/05/23 13:59 Not Given Q8HR VINCE Hydralazine HCl 10 mg 11/04/22 23:31 11/04/22 [...] mg/ Sodium IV 11/09/22 09:01 Infused [facility]loride [facility] Infusion Insulin Human Regular 45 unit 11/05/22 17:00 11/06/22 17:13 Insulin Regular U-500, Human 1,500 Unit/3 Ml Insuln.Pen SUBCUT 11/05/23 16:59 45 unit DAILY@1700 [facility] Administration Insulin Human Regular 70 unit 11/05/22 06:00 11/06/22 06:25 Insulin Regular U-500, Human 1,500 Unit/3 Ml Insuln.Pen SUBCUT 11/05/23 05:59 Not Given DAILY@0600 [facility] Insulin Human Regular 0 unit 11/06/22 12:34 [...] 08:59 Not Given DAILY VINCE Documented By: hCintan Brewster DO 11/06/22 17 24 Signed By: <Electronically signed by Chintan Brewster DO> 11/06/22 1726 [facility] Work Phone: Progress note Author Masoud Maria [facility] November 07, 2022 8:40am Note Date/Time November 07, 2022 8:40 am [facility] [address] [place] [address] General Surgery Progress Note Signed Patient: Evans Forte MR#: [id number] : 1970 Acct:[id number] Age/Sex: 52 / M Adm Date: 3 Loc: Room: [address] [place] [address] Type: ADM IN Attending Dr: Chintan Brewster [...] 500 Mg Tablet) 500 mg PO DAILY [facility] Stop: 11/05/23 08:59 Last Admin: 11/06/22 10:32 Dose: Not Given Atorvastatin Calcium (Atorvastatin 20 Mg Tablet) 20 mg PO DAILY [facility] Stop: 11/05/23 08:59 Last Admin: 11/06/22 10:32 Dose: Not Given Carvedilol (Carvedilol 25 Mg Tablet) 25 mg PO BID [facility] Stop: 11/04/23 20:59 Last Admin: 11/06/22 21:32 Dose: 25 mg Docusate Sodium (Docusate 100 Mg Capsule) 100 mg PO BID [facility] Stop: 11/06/23 20:59 Last Admin: 11/06/22 21:32 Dose: Not Given Emollient Ointment (Petrolatum,White 99 Gm Oint...G.) 1 applic TOPICAL DAILY [facility] Stop: 11/05/23 09:59 Last Admin: 11/07/22 05:55 Dose: 1 applic Fenofibrate (Fenofibrate Nanocrystallized 145 Mg Tablet) 145 mg PO DAILY [facility] Stop: 11/05/23 08:59 Last Admin: 11/05/22 08:48 Dose: 145 mg Ferrous Sulfate (Ferrous Sulfate 324 Mg Tablet.Dr) 324 mg PO DAILY [facility] Stop: 11/05/23 08:59 Last Admin: 11/06/22 10:32 Dose: Not Given Folic Acid (Cyanocobalamin/Fa/Pyridoxine 1 Tab Tablet) 1 tab PO DAILY [facility] Stop: 11/05/23 08:59 Last Admin: 11/06/22 10:32 Dose: Not Given Heparin Sodium (Porcine) (Heparin 5,000 Unit/Ml Vial) 5,000 unit SUBCUT Q8HR [facility] Stop: 11/05/23 13:59 Last Admin: 11/07/22 05:53 Dose: 5,000 unit Hydralazine HCl (Hydralazine 20 Mg/Ml Vial) 10 mg IV-PUSH Q4H PRN PRN Reason: if SBP > 185 Stop: 11/04/23 23:30 Last Admin: 11/04/22 23:40 Dose: 10 mg Hydralazine HCl (Hydralazine 50 Mg Tablet) 50 mg PO TID [facility] Stop: 11/05/23 05:59 Last Admin: 11/06/22 21:32 Dose: 50 mg Sodium Chloride (0.9% Sodium Chloride 500 Ml) 500 mls @ 20 mls/hr IV ONCE ONE Stop: 11/07/22 10:00 Last Admin: 11/06/22 10:37 Dose: 20 mls/hr Ferric Sodium Gluconate Complex 250 mg/ Sodium Chloride 270 mls @ 135 mls/hr IVQAM [facility] Stop: 11/09/22 09:01 Last Infusion: 11/06/22 13:03 Dose: Infused Insulin Human Regular (Insulin Regular U-500, Human 1,500 Unit/3 Ml Insuln.Pen) 45 unit SUBCUT DAILY@1700 [facility] Stop: 11/05/23 16:59 Last Admin: 11/06/22 17:13 Dose: 45 unit Insulin Human Regular (Insulin Regular U-500, Human 1,500 Unit/3 Ml Insuln.Pen) 70 unit SUBCUT DAILY@0600 [facility] Stop: 11/05/23 05:59 Last Admin: 11/07/22 05:54 Dose: 70 unit Labetalol HCl (Labetalol 100 Mg/20 Ml Vial) 10 mg IV-PUSH Q10M PRN PRN Reason: Hypertension Stop: 11/04/23 16:31 Last Admin: 11/04/22 21:41 Dose: 10 mg Levothyroxine Sodium (Levothyroxine 100 Mcg Tablet) 100 mcg PO DAILY@0630 [facility] Stop: 11/05/23 06:29 Last Admin: 11/07/22 05:55 Dose: 100 mcg Lorazepam (Lorazepam 2 Mg/Ml Vial) 0.5 mg IV-PUSH Q4H PRN PRN Reason: Agitation Stop: 05/05/23 16:50 Last Admin: 11/06/22 17:11 Dose: 0.5 mg Nifedipine (Nifedipine Er.24hr 90 Mg Tab.Er.24) 90 mg PO DAILY [facility] Stop: 11/05/23 08:59 Last Admin: 11/06/22 10:32 Dose: Not Given Pregabalin (Pregabalin 50 Mg Capsule) 50 mg PO DAILY [facility] Stop: 05/04/23 08:59 Last Admin: 11/06/22 10:32 Dose: Not Given Sodium Bicarbonate (Sodium Bicarbonate 650 Mg Tablet) 1,300 mg PO BID [facility] Stop: 11/05/23 10:29 Last Admin: 11/06/22 21:32 [...] (1,000 Units) Tablet) 50 mcg PO DAILY [facility] Stop: 11/05/23 08:59 Last Admin: 11/06/22 10:32 Dose: Not Given Zinc Gluconate (Zinc Gluconate 50 Mg Tablet) 50 mg PO DAILY [facility] Stop: 11/05/23 08:59 Last Admin: 11/06/22 10:32 [...] % (Auto) 87.5, Lymph % (Auto) 5.8, [place] % (Auto) 6.5, Eos % (Auto)0.1, Baso % (Auto) 0.1, Nucleat RBC Rel Count 0.1, Neut # (Auto) 10.9 H, Lymph #(Auto) 0.7 L, [place] # (Auto) 0.8, Eos # (Auto) 0.0, [...] % (Auto) 74.7, Lymph % (Auto) 13.3, [place] % (Auto) 9.0, Eos % (Auto) 2.5, Baso % (Auto) 0.5, Nucleat RBC Rel Count 0.1, Neut # (Auto) 10.0 H, Lymph # (Auto) 1.8, [place] # (Auto) 1.2 H, Eos # (Auto) [...] signed by Masoud Maria DO> 11/07/22 0840 [facility] Work Phone: Progress note Author Yocasta Villalba [facility] November 07, 2022 2:43pm Note Date/Time November 07, 2022 2:43 pm [facility] [address] [place] [address] Nephrology Progress Note Signed Patient: Evans Forte MR#: [id number] : 1970 Acct:[id number] Age/Sex: 52 / M Adm Date: 3 Loc: 4P Room: [address] [place] [address] Type: ADM IN Attending Dr: Chintan Brewster DO Copies to: ~ Date of Service: 11/07/2022 Subjective Subjective Narrative: This is a 52-year-old male patient with a past sickle history of chronic kidney disease stage V from diabetic nephropathy, hypertension, morbid obesity, anemia of renal disease, neuropathy. Patient was referred to the hospital by his grading clerk Dr. Waters for hyperkalemia with potassium 5.9 [...] 145 Mg Tablet) 145 mg PO DAILY [facility] Stop: 11/05/23 08:59 Last Admin: 11/07/22 08:37 Dose: 145 mg Ferrous Sulfate (Ferrous Sulfate 324 Mg Tablet.Dr) 324 mg PO DAILY [facility] Stop: 11/05/23 08:59 Last Admin: 11/07/22 08:38 Dose: 324 mg Folic Acid (Cyanocobalamin/Fa/Pyridoxine 1 Tab Tablet) 1 tab PO DAILY VINCE Stop: 11/05/23 08:59 Last Admin: 11/07/22 08:38 Dose: 1 tab Furosemide (Furosemide 40 Mg/4 Ml Vial) 40 mg IV-PUSH DAILY.8A [facility] Stop: 11/07/23 09:54 Last Admin: 11/07/22 11:23 Dose: 40 mg Heparin Sodium (Porcine) (Heparin 5,000 Unit/Ml Vial) 5,000 unit SUBCUT Q8HR [facility] Stop: 11/05/23 13:59 Last Admin: 11/07/22 13:45 Dose: 5,000 unit Hydralazine HCl (Hydralazine 20 Mg/Ml Vial) 10 mg IV-PUSH Q4H PRN PRN Reason: if SBP > 185 Stop: 11/04/23 23:30 Last Admin: 11/07/22 12:13 Dose: 10 mg Hydralazine HCl (Hydralazine 50 Mg Tablet) 100 mg PO TID [facility] Stop: 11/07/23 13:59 Last Admin: 11/07/22 13:44 Dose: 100 mg Ferric Sodium Gluconate Complex 250 mg/ Sodium Chloride 270 mls @ 135 mls/hr IVQAM [facility] Stop: 11/09/22 09:01 Last Admin: 11/07/22 09:49 Dose: 135 mls/hr Insulin Human Regular (Insulin Regular U-500, Human 1,500 Unit/3 Ml Insuln.Pen) 45 unit SUBCUT DAILY@1700 [facility] Stop: 11/05/23 16:59 Last Admin: 11/06/22 17:13 Dose: 45 unit Insulin Human Regular (Insulin Regular U-500, Human 1,500 Unit/3 Ml Insuln.Pen) 70 unit SUBCUT DAILY@0600 [facility] Stop: 11/05/23 05:59 Last Admin: 11/07/22 05:54 [...] DAILY VINCE Stop: 05/04/23 08:59 Last Admin: 11/07/22 08:38 [...] a.m. Documented By: Yocasta Villalba MD 11/07/22 1439 Signed By: <Electronically signed by Yocasta Villalba MD> 11/07/22 1443 [facility] Work Phone: Progress note Author Arnol Calloway [facility] November 21, 2023 5:52pm Note Date/Time November 21, 2023 11: 07am [facility] [address] [place] [address] Hospitalist Progress Note Signed Patient: Evans Forte MR#: [id number] : 1970 Acct:[id number] Age/Sex: 53 / M Adm Date: 4 Loc: Room: [address] [place] [address] Type: ADM IN Attending Dr: Arnol Calloway [...] as neuropathy. Follows with Dr. Fonseca/podiatry in [place] but indicates has not had vascular studies [...] TRANSDERML 11/20/24 08:59 Not Given Packet DAILY [facility] Tirzepatide [ 5 mg 11/30/23 09:00 Mounjaro] 5 Mg/0.5 SUBCUT 11/29/24 08:59 Ml Pen Injector Tu@0900 [facility] Ondansetron HCl 4 mg 11/20/23 21:03 Ondansetron [...] <Electronically signed by Arnol Calloway MD> 11/21/23 1752 [facility] Work Phone: Progress note Author Amy Escudero [facility] November 22, 2023 12:45pm Note Date/Time November 22, 2023 10: 37am [facility] [address] [place] [address] Hospitalist Progress Note Signed Patient: Evans Forte MR#: [id number] : 1970 Acct:[id number] Age/Sex: 53 / M Adm Date: 4 Loc: Room: [address] [place] [address] Type: ADM IN Attending Dr: Amy Escudero [...] Insuln.Pen SUBCUT 11/20/24 16:29 Not Given ACHS VINCE Protocol Insulin Human Regular 50 unit 11/21/23 [...] Administration Sodium Chloride 0 ml 11/20/23 18:44 03/17/24 11:14 Sodium Chloride 0.9 % 10 Ml [...] consult dependent on results ESRD on hemodialysis / Anemia of CKD [...] signed by Amy Escudero DO> 11/22/23 1245 [facility] Work Phone: Progress note Author Ada Uriostegui [facility] November 22, 2023 12:53pm Note Date/Time November 22, 2023 12: 53pm [facility] [address] [place] [address] Nephrology Progress Note Signed Patient: Evans Forte MR#: [id number] : 1970 Acct:[id number] Age/Sex: 53 / M Adm Date: 4 Loc: Room: [address] [place] [address] Type: ADM IN Attending Dr: Amy Escudero DO Copies to: ~ Date of Service: 11/22/2023 Subjective Subjective Narrative: This is a 53-year-old male patient with a past medical history of hypertension, hyperlipidemia, end-stage renal disease on TTS hemodialysis schedule at [facility], insulin-dependent diabetes mellitus, obstructive sleep apnea, [...] Skin: No rashes , warm to touch 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: Awake,Alert, following simple command Musculoskeletal: No joint [...] 1 Mg Tablet) 1 mg PO QAM [facility] Stop: 11/20/24 08:59 Last Admin: 11/22/23 08:14 Dose: 1 mg Atorvastatin Calcium (Atorvastatin 20 Mg Tablet) 20 mg PO QAM [facility] Stop: 11/20/24 08:59 Last Admin: 11/22/23 08:13 Dose: 20 mg Calcitriol (Calcitriol 0.25 Mcg Capsule) 0.25 mcg PO TuThSa@0900 [facility] Stop: 11/22/24 08:59 Calcium Acetate (Calcium Acetate 667 Mg Capsule) 2,668 mg PO AC [facility] Stop: 11/20/24 07:29 Last Admin: 11/22/23 11:21 Dose: 2,668 mg Carvedilol (Carvedilol 6.25 Mg Tablet) 6.25 mg PO BID [facility] Stop: 11/21/24 12:19 Cyanocobalamin (Cyanocobalamin 1,000 Mcg Tablet) 1,000 mcg PO DAILY [facility] Stop: 11/20/24 08:59 Last Admin: 11/22/23 08:13 Dose: 1,000 mcg Heparin Sodium (Porcine) (Heparin 5,000 Unit/Ml Vial) 5,000 unit SUBCUT Q12HR [facility] Stop: 11/20/24 08:59 Last Admin: 11/22/23 08:14 Dose: 5,000 unit Linezolid (Zyvox) 600 mg in 300 mls @ 300 mls/hr IV Q12H [facility] Last Admin: 11/22/23 08:58 Dose: 300 mls/hr Ceftriaxone Sodium (Rocephin) 2 gm in 50 mls @ 100 mls/hr IV Q24H [facility] Last Admin: 11/21/23 19:41 Dose: 100 mls/hr Insulin Aspart (Insulin Aspart 300 Units/3 Ml Insuln.Pen) 0 units SUBCUT ACHS [facility]; Protocol Stop: 11/20/24 16:29 Last Admin: 11/22/23 11:22 Dose: 2 units Insulin Human Regular (Insulin Regular U-500, Human 1,500 Unit/3 Ml Insuln.Pen) 50 unit SUBCUT BID [facility] Stop: 11/20/24 08:59 Last Admin: 11/22/23 08:16 Dose: 50 unit Levothyroxine Sodium (Levothyroxine 100 Mcg Tablet) 100 mcg PO DAILY.0630 [facility] Stop: 11/20/24 06:29 Last Admin: 11/22/23 05:29 [...] Gel In Packet 1 packet TRANSDERML DAILY [facility] Stop: 11/20/24 08:59 Last Admin: 11/22/23 11:21 Dose: Not Given Tirzepatide [ Mounjaro] 5 Mg/0.5 Ml Pen Injector 5 mg SUBCUT Tu@0900 [facility] Stop: 11/29/24 08:59 Ondansetron HCl (Ondansetron 4 [...] Taqueria Reese M.D.11/21/2023 4:39 PM Dictation Location: [address] 11/22/23 07:00 IMPRESSION: NO HEMODYNAMICALLY SIGNIFICANT PERIPHERAL VASCULAR OCCLUSIVE DISEASE AT REST IN EITHER LOWER EXTREMITY. Impression dictated by: Ramirez Jean M.D.11/22/2023 10:09 AM Dictation Location: [place] [address] Any impression(s) listed above is documentation that [...] diabetic nephropathy. Patient has been going to [facility] on TTS for hemodialysis. Last hemodialysis [...] needed Documented By: Ada Uriostegui MD 11/22/23 1242 Signed By: <Electronically signed by Ada Uriostegui MD> 11/22/23 1104 [facility] Work Phone: Progress note Author Ada Uriostegui [facility] November 23, 2023 12:09pm Note Date/Time November 23, 2023 10: 34am [facility] [address] [place] [address] Nephrology Progress Note Signed Patient: JannEvans higuera Ac MR#: [id number] : 1970 Acct:[id number] Age/Sex: 53 / M Adm Date: 4 Loc: Room: 5Z2100-1 Type: ADM IN Attending Dr: Amy Escudero DO Copies to: ~ Date of Service: 11/23/2023 Subjective Subjective Narrative: This is a 53-year-old male patient with a past medical history of hypertension, hyperlipidemia, end-stage renal disease on TTS hemodialysis schedule at [facility], insulin-dependent diabetes mellitus, obstructive sleep apnea, [...] Skin: No rashes , warm to touch 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: Awake,Alert, following simple command Musculoskeletal: No joint [...] 1 Mg Tablet) 1 mg PO QAM [facility] Stop: 11/20/24 08:59 Last Admin: 11/22/23 08:14 Dose: 1 mg Atorvastatin Calcium (Atorvastatin 20 Mg Tablet) 20 mg PO QAM [facility] Stop: 11/20/24 08:59 Last Admin: 11/22/23 08:13 Dose: 20 mg Calcitriol (Calcitriol 0.25 Mcg Capsule) 0.25 mcg PO TuThSa@0900 [facility] Stop: 11/22/24 08:59 Calcium Acetate (Calcium Acetate 667 Mg Capsule) 2,668 mg PO AC [facility] Stop: 11/20/24 07:29 Last Admin: 11/23/23 08:52 Dose: Not Given Carvedilol (Carvedilol 6.25 Mg Tablet) 6.25 mg PO BID [facility] Stop: 11/21/24 13:29 Last Admin: 11/23/23 08:53 Dose: Not Given Cyanocobalamin (Cyanocobalamin 1,000 Mcg Tablet) 1,000 mcg PO DAILY [facility] Stop: 11/20/24 08:59 Last Admin: 11/22/23 08:13 Dose: 1,000 mcg Darbepoetin Zechariah (Darbepoetin Zechariah In Polysorbat 25 Mcg/Ml Vial) 25 mcg IV-PUSHTu@0930 [facility]; Protocol Stop: 11/22/24 09:29 Furosemide (Furosemide 80 Mg Tablet) 80 mg PO BID@0800,1600 [facility] Stop: 11/21/24 15:59 Last Admin: 11/23/23 08:52 Dose: Not Given Heparin Sodium (Porcine) (Heparin 5,000 Unit/Ml Vial) 5,000 unit SUBCUT Q12HR [facility] Stop: 11/20/24 08:59 Last Admin: 11/23/23 08:53 [...] 300 mls @ 300 mls/hr IV Q12H [facility] Last Admin: 11/22/23 21:02 Dose: 300 mls/hr Ceftriaxone Sodium (Rocephin) 2 gm in 50 mls @ 100 mls/hr IV Q24H [facility] Last Admin: 11/22/23 19:25 Dose: 100 mls/hr Sodium Chloride (0.9% Sodium Chloride 1,000 Ml) 1,000 mls @ 0 mls/hr MISCELLANE.Q0M PRN PRN Reason: Dialysis Stop: 11/22/24 09:19 Last Infusion: 11/23/23 09:43 Dose: Infused Insulin Aspart (Insulin Aspart 300 Units/3 Ml Insuln.Pen) 0 units SUBCUT ACHS [facility]; Protocol Stop: 11/20/24 16:29 Last Admin: 11/23/23 08:52 Dose: Not Given Insulin Human Regular (Insulin Regular U-500, Human 1,500 Unit/3 Ml Insuln.Pen) 50 unit SUBCUT BID [facility] Stop: 11/20/24 08:59 Last Admin: 11/23/23 08:53 Dose: Not Given Levothyroxine Sodium (Levothyroxine 100 Mcg Tablet) 100 mcg PO DAILY.0630 [facility] Stop: 11/20/24 06:29 Last Admin: 11/23/23 05:38 [...] Gel In Packet 1 packet TRANSDERML DAILY [facility]INCE Stop: 11/20/24 08:59 Last Admin: 11/23/23 08:53 Dose: Not Given Tirzepatide [ Mounjaro] 5 Mg/0.5 Ml Pen Injector 5 mg SUBCUT Tu@0900 [facility] Stop: 11/29/24 08:59 Ondansetron HCl (Ondansetron 4 Mg/2 Ml Vial) 4 mg IV-PUSH Q8H PRN PRN Reason: Nausea And Vomiting Stop: 11/19/24 21:02 Pregabalin (Pregabalin 50 Mg Capsule) 50 mg PO DAILY VINCE Stop: 05/21/24 08:59 Sodium Chloride (Sodium Chloride [...] diabetic nephropathy. Patient has been going to [facility] on TTS for hemodialysis. Last hemodialysis [...] signed by Ada Uriostegui MD> 11/23/23 1209 [facility] Work Phone: Progress note Author Chintan Hernández [facility] November 23, 2023 10:54am Note Date/Time November 23, 2023 10: 54am [facility] [address] [place] [address] Infect. Disease Progress Note Signed Patient: Evans Forte MR#: [id number] : 1970 Acct:[id number] Age/Sex: 53 / M Adm Date: 4 Loc: 3T Room: [address] [place] [address] Type: ADM IN Attending Dr: Amy Escudero [...] 1 Mg Tablet) 1 mg PO QAM [facility] Stop: 11/20/24 08:59 Last Admin: 11/22/23 08:14 Dose: 1 mg Atorvastatin Calcium (Atorvastatin 20 Mg Tablet) 20 mg PO QAM [facility] Stop: 11/20/24 08:59 Last Admin: 11/22/23 08:13 Dose: 20 mg Calcitriol (Calcitriol 0.25 Mcg Capsule) 0.25 mcg PO TuThSa@0900 [facility] Stop: 11/22/24 08:59 Calcium Acetate (Calcium Acetate 667 Mg Capsule) 2,668 mg PO AC [facility] Stop: 11/20/24 07:29 Last Admin: 11/23/23 08:52 Dose: Not Given Carvedilol (Carvedilol 6.25 Mg Tablet) 6.25 mg PO BID [facility] Stop: 11/21/24 13:29 Last Admin: 11/23/23 08:53 Dose: Not Given Cyanocobalamin (Cyanocobalamin 1,000 Mcg Tablet) 1,000 mcg PO DAILY [facility] Stop: 11/20/24 08:59 Last Admin: 11/22/23 08:13 Dose: 1,000 mcg Darbepoetin Zechariah (Darbepoetin Zechariah In Polysorbat 25 Mcg/Ml Vial) 25 mcg IV-PUSHTu@0930 [facility]; Protocol Stop: 11/22/24 09:29 Furosemide (Furosemide 80 Mg Tablet) 80 mg PO BID@0800,1600 [facility] Stop: 11/21/24 15:59 Last Admin: 11/23/23 08:52 Dose: Not Given Heparin Sodium (Porcine) (Heparin 5,000 Unit/Ml Vial) 5,000 unit SUBCUT Q12HR [facility] Stop: 11/20/24 08:59 Last Admin: 11/23/23 08:53 [...] 300 mls @ 300 mls/hr IV Q12H [facility] Last Admin: 11/22/23 21:02 Dose: 300 mls/hr Ceftriaxone Sodium (Rocephin) 2 gm in 50 mls @ 100 mls/hr IV Q24H [facility] Last Admin: 11/22/23 19:25 Dose: 100 mls/hr Sodium Chloride (0.9% Sodium Chloride 1,000 Ml) 1,000 mls @ 0 mls/hr MISCELLANE.Q0M PRN PRN Reason: Dialysis Stop: 11/22/24 09:19 Last Infusion: 11/23/23 09:43 Dose: Infused Insulin Aspart (Insulin Aspart 300 Units/3 Ml Insuln.Pen) 0 units SUBCUT ACHS [facility]; Protocol Stop: 11/20/24 16:29 Last Admin: 11/23/23 08:52 Dose: Not Given Insulin Human Regular (Insulin Regular U-500, Human 1,500 Unit/3 Ml Insuln.Pen) 50 unit SUBCUT BID [facility] Stop: 11/20/24 08:59 Last Admin: 11/23/23 08:53 Dose: Not Given Levothyroxine Sodium (Levothyroxine 100 Mcg Tablet) 100 mcg PO DAILY.0630 [facility] Stop: 11/20/24 06:29 Last Admin: 11/23/23 05:38 [...] Gel In Packet 1 packet TRANSDERML DAILY [facility] Stop: 11/20/24 08:59 Last Admin: 11/23/23 08:53 Dose: Not Given Tirzepatide [ Mounjaro] 5 Mg/0.5 Ml Pen Injector 5 mg SUBCUT Tu@0900 [facility] Stop: 11/29/24 08:59 Ondansetron HCl (Ondansetron 4 Mg/2 Ml Vial) 4 mg IV-PUSH Q8H PRN PRN Reason: Nausea And Vomiting Stop: 11/19/24 21:02 Pregabalin (Pregabalin 50 Mg Capsule) 50 mg PO DAILY [facility]INCE Stop: 05/21/24 08:59 Sodium Chloride (Sodium Chloride [...] discharge planning. Documented By: Chintan Hernández MD 11/23/231051 Signed By: <Electronically signed by MD Chintan Hernández> 11/23/231053 [facility] Work Phone: Progress note Author Amy Escudero [facility] November 24, 2023 1:40pm Note Date/Time November 23, 2023 1:0 3pm [facility] [address] [place] [address] Hospitalist Progress Note Signed Patient: Evans Forte MR#: Maeve [id number] : 1970 Acct:[id number] Age/Sex: 53 / M Adm Date: 4 Loc: 3T Room: [address] [place] [address] Type: DIS IN Attending Dr: Amy Escudero [...] 0.25 Mcg Capsule PO 11/22/24 08:59 TuThSa@0900 [facility] Calcium Acetate 2,668 mg 11/21/23 07:30 11/23/23 08:52 Calcium Acetate 667 Mg Capsule PO 11/20/24 07:29 Not Given AC VINCE Carvedilol 6.25 mg 11/22/23 13:30 11/23/23 08:53 Carvedilol 6.25 Mg Tablet PO 11/21/24 13:29 Not Given BID [facility] Cyanocobalamin 1,000 mcg 11/21/23 09:00 11/22/23 08:13 Cyanocobalamin 1,000 Mcg Tablet PO 11/20/24 08:59 1,000 mcg DAILY VINCE Administration Darbepoetin Zechariah 25 mcg 11/23/23 09:30 11/23/23 11:47 Darbepoetin Zechariah In Polysorbat 25 Mcg/Ml Vial IV-PUSH 11/22/24 09:29 25 mcg Tu@0930 [facility] Administration Protocol Furosemide 80 mg 11/22/23 16:00 11/23/23 08:52 Furosemide 80 Mg Tablet PO 11/21/24 15:59 Not Given BID@0800,1600 [facility] Heparin Sodium (Porcine) 5,000 unit 11/21/23 09:00 11/23/23 08:53 Heparin 5,000 Unit/Ml Vial SUBCUT 11/20/24 08:59 Not Given Q12HR [facility] Heparin Sodium (Porcine) 2,000 unit 11/23/23 09:20 [...] Insuln.Pen SUBCUT 11/20/24 16:29 Not Given ACHS [facility] Protocol Insulin Human Regular 50 unit 11/21/23 [...] SUBCUT 11/29/24 08:59 Ml Pen Injector Tu@0900 [facility] Ondansetron HCl 4 mg 11/20/23 21:03 Ondansetron [...] signed by Amy Escudero DO> 11/24/23 1340 [facility] Work Phone: Progress note Author Gi Mondragon [facility] November 23, 2023 3:53pm Note Date/Time November 23, 2023 3:5 3pm [facility] [address] [place] [address] Podiatry Progress Note Signed Patient: Evans Forte MR#: Maeve [id number] : 1970 Acct:[id number] Age/Sex: 53 / M Adm Date: 4 Loc: Room: [address] [place] [address] Type: ADM IN Attending Dr: Amy Escudero DO Copies to: ~ Subjective Subjective Date of Service: Date of Service: 11/23/2023 Time of Service: 15:51 Narrative: Mr. Forte is a 53 year old male who was admitted due to symptoms of sepsis. Patient has a large ulceration on the bottom of the right great toe and heel. He has been following with a manufacturing plant technician and family. Patient states that the ulcerations [...] large hyperkeratosis. Patient will follow-up with his manufacturing plant technician and family for further wound care. 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 OPERATOR-C, BC-ADMNort mobifriends Other Summary Purpose Family History No Family [...] Hypertension Insulin dependent diabetes mellitus Metabolic acidosis [id number] Chief Complaint High BS R Leg Swelling vomiting/low urine output N18.5;E11.22;I12.9;N25.81;D63.1;E80.1;W87.5 abnormal labs, sent by ESRD Reason for Visit Acute hyperkalemia Acute kidney injury superimposed on CKD Chronic kidney disease CKD (chronic kidney disease) stage 5, GFR less than 15 ml/min Hyperkalemia Hypertension Insulin dependent diabetes mellitus Metabolic acidosis [id number] Chief Complaint DM E11.22 Chief Complaint DM E11.22 SOB Wheezing Chief Complaint E11.22 SOB Wheezing ESRD Reason for Visit [id number] Chief Complaint SOB Wheezing ESRD sob Reason for Visit [id number] Chief Complaint SOB Wheezing ESRD sob N18.6 Reason for Visit [id number] Chief Complaint SOB Wheezing ESRD sob N18.6 Needs Av Access; Vein Mapping Done At F ESRD ESRD, Peritoneal Dialysis Catheter Dysfunction Reason for Visit [id number] Chief Complaint SOB Wheezing ESRD sob N18.6 Needs Av Access; Vein Mapping Done At F ESRD ESRD, Peritoneal Dialysis Catheter Dysfunction ESRD, Peritoneal Dialysis Catheter Dysfunction Reason for Visit [id number] Chief Complaint ESRD sob N18.6 Needs Av Access; Vein Mapping Done At F ESRD ESRD, Peritoneal Dialysis Catheter Dysfunction ESRD, Peritoneal Dialysis Catheter Dysfunction F/U LEFT ARM AVF CREATION abdominal wound fever, low blood pressure: post dialysis Reason for Visit [id number] Dependence on renal dialysis Chief Complaint ESRD [...] Benign hypertension with end-stage renal disease Diabetes [id number] Edema of right lower extremity End stage [...] Benign hypertension with end-stage renal disease Diabetes [id number] Edema of right lower extremity End stage [...] section and content) DATE CREATED AUTHOR 04/03/2020 [facility] DATE CREATED AUTHOR AUTHOR'S ORGANIZ ATION 10/24/2021 [facility] DATE CREATED AUTHOR AUTHOR'S ORGANIZ ATION 05/14/2022 [facility] DATE CREATED AUTHOR AUTHOR'S ORGANIZ ATION 10/10/2022 [facility] DATE CREATED AUTHOR AUTHOR'S ORGANIZ ATION 12/10/2022 [facility] DATE CREATED AUTHOR AUTHOR'S ORGANIZ ATION 10/15/2024 [facility] DATE CREATED AUTHOR AUTHOR'S ORGANIZ ATION 12/07/2024 [facility] EPIC DATE CREATED AUTHOR AUTHOR'S ORGANIZ ATION 02/04/2025 [facility] DATE CREATED AUTHOR AUTHOR'S ORGANIZ ATION 02/04/2025 [facility] DATE CREATED AUTHOR AUTHOR'S ORGANIZ ATION 02/06/2025 Nuno Mccook [facility] DATE CREATED AUTHOR AUTHOR'S ORGANIZ ATION 04/07/2025 [facility] DATE CREATED AUTHOR AUTHOR'S ORGANIZ ATION 04/17/2025 [facility] REASON FOR VISIT (unrecogniz ed [...] NEEDS AV ACCESS; VEIN MAPPING DONE AT [facility] [place] 09/27/23, Need for dialysis accessWMN VoicemailTKM Pump start and U-500 refillTKM Pump orderTKM refill requestlab result/order for tandem pumplab results,suppliesTKM LyricaTKM - REFILL REQUEST FOR LYRICAletter for DR. [facility]ITALClinicalCKD and HTNCKD Care Teams (unrecognized sec [...] , DO Primary Care Provider Active Start: January 03, 2024 End: January 03, 2024 Ramirez Jean MD Attending Provider Active S tart: January 03, 2024 End: January 03, 2024 Team Status: Inactive Member Role Status Dates Idaniakavita Ricketts , DO Primary Care Provider Active Start: February [...] Team Status: Inactive Member Role Status Dates Idaniakavita Ricketts DO Primary Care Provider Active Start: [...] Idania Ricketts DO Primary Care Provider Active Yolie Noe DO RES Active Evans Narayanan Jr, MD Emergency Provider Active Team Status: Inactive Member Role Status Dates Idania Ricketts DO Primary Care Provider Active Evans Narayanan Jr, MD Emergency Provider Active Team Status: Inactive Member Role Status Dates Idania Ricketts DO Primary Care Provider Active Mary Hill APRN Emergency Provider Active Team Status: Active Member Role Status Dates Idania Ricketts DO Primary Care Provider Active Delano Mondragon MD Emergency Provider Active Chintan Brewster DO Admit Provider, Attending Provider Active Team Status: Inactive Member Role Status Dates Idania Ricketts DO Primary Care Provider Active Delano Mondragon MD Emergency Provider Active Chintan Frings , DO Admit Provider, Attending Provider Active Jf Liu MD Other Provider Active Ada Uriostegui MD Other Provider Active Zenon Cage MD Other Provider Active Conor Mcnamara MD Other Provider Active Yocasta Villalba MD Other Provider Active Team Status: Inactive Member Role Status Dates Idania Ricketts , DO Primary Care Provider Active Chintan Brewster , DO Attending Provider Active Team Status: Active Member Role Status Dates Idania Ricketts , DO Primary Care Provider Active Michelle Kennedy APRN Attending Provider Active Team Status: Inactive Member Role Status Dates Idania Ricketts , DO Primary Care Provider Active Clara Bell , DO Emergency Provider Active Team Status: Inactive Member Role Status Dates Idania Ricketts , DO Primary Care Provider Active Ramirez Jean MD Attending Provider Active Team Status: Inactive Member Role Status Dates Idania Ricketts , Primary Care Provider Active Start: August 09, 2023 End: August 09, 2023 Clara Bell , DO Emergency Provider Active St art: August 09, 2023 End: August 09, 2023 Team Status: Inactive Member Role Status Dates Idaniakavita Ricketts DO Primary Care Provider Active Start: [...] September 27, 2023 End: September 27, 2023 Coordinate Measuring Machine Technician Relationship Specialty Start Date End Date Idania Ricketts DO [address] [place] [address] [facility] 09/09/22 Idania Ricketts DO [address] [place] [address] PCP - [facility] 02/04/23 Idania Ricketts, DO [address] [place] [address] PCP - General Family Medicine 09/20/23 Coordinate Measuring Machine Technician Relationship Specialty Start Date End Date Idania Ricketts, DO [address] [place] [address] PCP - [facility] 09/09/22 Idania Ricketts, DO [address] [place] [address] PCP - [facility] 02/04/23 Idania Ricketts, DO [address] [place] [address] PCP - General Family Medicine 09/20/23 Team Status: Inactive Member Role Status Dates Ramirez Jean MD Attending Provider Active S tart: October 04, 2023 End: October 04, 2023 Coordinate Measuring Machine Technician Relationship Specialty Start Date End Date Idania Ricketts, DO [address] [place] [address] [facility] 09/09/22 Idania Ricketts, DO [address] [place] [address] PCP - [facility] 02/04/23 Idania Ricketts, DO [address] [place] [address] PCP - General Family Medicine 09/20/23 Team [...] Other Provider Active Start: Maeve wheeler 2023 Chintan Hernández MD Attending Provider, Other [...] May 15, 2024 End: May 15, 2024 Coordinate Measuring Machine Technician Relationship Specialty Start Date End Date Idania Ricketts, DO [address] [place] [address] PCP - General Family Medicine 09/20/23 Coordinate Measuring Machine Technician Relationship Specialty Start Date End Date Idania Ricketts, DO [address] [place] [address] PCP - General Family Medicine 09/20/23 Coordinate Measuring Machine Technician Relationship Specialty Start Date End Date Idania Ricketts DO [address] [place] [address] PCP - General Family Medicine 09/20/23 Idania Ricketts, DO [address] [place] [address] PCP - [facility] 09/06/23 09/05/24 Coordinate Measuring Machine Technician Relationship Specialty Start Date End Date Idania Ricketts DO [address] [place] [address] PCP - General Family Medicine 09/20/23 Idania Ricketts, DO [address] [place] [address] PCP - [facility] 09/06/23 09/05/24 Coordinate Measuring Machine Technician Relationship Specialty Start Date End Date Idania Ricketts, DO [address] [place] [address] PCP - General Family Medicine 09/20/23 Idania Ricketts, DO [address] [place] [address] PCP - [facility] 09/06/23 09/05/24 Coordinate Measuring Machine Technician Relationship Specialty Start Date End Date Idania Ricketts, DO [address] [place] [address] PCP - General Family Medicine 09/20/23 Coordinate Measuring Machine Technician Relationship Specialty Start Date End Date Idania Ricketts, DO [address] [place] [address] PCP - General Family Medicine 09/20/23 Coordinate Measuring Machine Technician Relationship Specialty Start Date End Date Idania Ricketts, DO [address] [place] [address] PCP - General Family Medicine 09/20/23 Coordinate Measuring Machine Technician Relationship Specialty Start Date End Date Idania Ricketts, DO [address] [place] [address] PCP - General Family Medicine 09/20/23 Coordinate Measuring Machine Technician Relationship Specialty Start Date End Date Idania Ricketts, DO [address] [place] [address] PCP - General Family Medicine 09/20/23 Coordinate Measuring Machine Technician Relationship Specialty Start Date End Date Vandanaabigail Idania M, DO [address] [place] [address] PCP - General Family Medicine 09/20/23 Idania Ricketts, DO [address] [place] [address] [facility] 09/06/23 09/05/24 Coordinate Measuring Machine Technician Relationship Specialty Start Date End Date Idania Ricketts, DO [address] [place] [address] PCP - General Family Medicine 09/20/23 Idania Ricketts, DO [address] [place] [address] PCP - [facility] 09/06/23 09/05/24 Coordinate Measuring Machine Technician Relationship Specialty Start Date End Date Idania Ricketts, DO [address] [place] [address] PCP - General Family Medicine 09/20/23 Coordinate Measuring Machine Technician Relationship Specialty Start Date End Date Idania Ricketts, DO [address] [place] [address] PCP - General Family Medicine 09/20/23 Coordinate Measuring Machine Technician Relationship Specialty Start Date End Date Idania Ricketts, DO [address] [place] [address] PCP - General Family Medicine 09/20/23 Coordinate Measuring Machine Technician Relationship Specialty Start Date End Date Idania Ricketts, DO [address] [place] [address] PCP - General Family Medicine 09/20/23 Coordinate Measuring Machine Technician Relationship Specialty Start Date End Date Idania Ricketts, DO [address] [place] [address] PCP - General Family Medicine 09/20/23 Coordinate Measuring Machine Technician Relationship Specialty Start Date End Date Idania Ricketts DO [address] [place] [address] PCP - General Family Medicine 09/20/23 Team [...] MD Other Provider Active Start: ebruary 2024 DARCI Concepcion Other Provider Active Start: [...] MD Other Provider Active Start: ebruary 2024 End: October 30, 2024 DARCI Concepcion Other Provider Active Start: October 29, 2024 End: October 30, 2024 Ada Uriostegui MD Other Provider Active Start: Fe rad 2024 End: October 30, 2024 Yocasta Villalba MD Other Provider Active Start: F ar 2024 End: October 30, 2024 Gi Mondragon DPM Other Provider Active Star t: October 29, 2024 End: October 30, 2024 Coordinate Measuring Machine Technician Relationship Specialty Start Date End Date Idania Ricketts DO [address] [place] [address] PCP - General Family Medicine 09/20/23 Team Status: Inactive Member Role Status Dates Idania Ricketts DO Primary Care Provider Active Start: November 27, 2024 End: November 28, 2024 Venkat Burgos DO Emergency Provider Active Sta rt: November 27, 2024 End: November 28, 2024 Coordinate Measuring Machine Technician Relationship Specialty Start Date End Date Idania Ricketts DO [address] [place] [address] PCP - General Family Medicine 09/20/23 Team [...] February 13, 2025 End: February 13, 2025 Coordinate Measuring Machine Technician Relationship Specialty Start Date End Date Idania Ricketts DO [address] [address] PCP - General Family Medicine 09/20/23 Team [...] March 26, 2025 End: March 26, 2025 Coordinate Measuring Machine Technician Relationship Specialty Start Date End Date Idania Ricketts DO [address] [place] [address] PCP - General 06/15/18 Goals (unrecognized section [...] BE BASED ON THE PRIMARY CLINICAL RECORDS. [employer] provides no warranty or guarantee of the accuracy or completeness of information in this document.
--- NOTE | 2025-04-20 09:21 | ED.GENADUL1 ---
HPI HPI - General Adult General Chief complaint: Extremity Problem, Nontraumatic Stated complaint: FEET ARE BURNING Time Seen by Provider: 04/20/25 08:54 Source: patient Mode of arrival: walk-in Limitations: no limitations History of Present Illness HPI narrative: 55-year-old male presents for chronic pain in both feet. He has diabetic neuropathy and is in pain management. He has had no injury. This is the same pain that he has had for years. He is scheduled for a procedure with his pain management physician. He states his family doctor will not write him for any pain medications. In reviewing his [place] report and the electronic health record it appears that the patient is going to various emergency departments obtaining pain medication. This has been discussed with him in the past. The [place] report also indicates that he had a prescription for [address] [place] filled on March 07 but the patient states this was not him and that it somebody with a similar name to him in [place]. We did encounter the similar issue earlier this year and at that time I had told him that he would need to bring the police report and he has not. It is a burning pain that is continuous. It is unchanged. Related Data Home Medications ?Medication ?Instructions ?Recorded ?Confirmed B complex 11-folic acid 1 mg-C 100 1 tab PO DAILY 08/29/24 04/10/25 mg-biotin 300 mcg-zinc 50 mg tablet (Dialyvite) anastrozole 1 mg tablet 1 mg PO DAILY 08/29/24 04/10/25 aspirin 81 mg chewable tablet 1 tab PO DAILY 08/29/24 04/10/25 atorvastatin 20 mg tablet 20 mg PO DAILY 08/29/24 04/10/25 calcitriol 0.25 mcg capsule 0.25 mcg PO QWEEK 08/29/24 04/10/25 carvedilol 6.25 mg tablet 6.25 mg PO Q12H 08/29/24 04/10/25 escitalopram oxalate 10 mg tablet 10 mg PO DAILY 08/29/24 04/10/25 furosemide 80 mg tablet 80 mg PO Q12H 08/29/24 04/10/25 insulin glargine 100 unit/mL (3 60 unit subcut QAM 08/29/24 04/10/25 mL) subcutaneous pen (Lantus Solostar U-100 Insulin) insulin lispro 100 unit/mL 10 unit subcut .meal 08/29/24 04/10/25 subcutaneous pen (Humalog KwikPen (U-100) Insulin) levothyroxine 100 mcg tablet 100 mcg PO DAILY 08/29/24 04/10/25 pregabalin 150 mg capsule 150 mg PO TID 08/29/24 04/10/25 sevelamer carbonate 800 mg tablet 800 mg PO TID 08/29/24 04/10/25 tenapanor 30 mg tablet (Xphozah) 30 mg PO DAILY 08/29/24 04/10/25 testosterone 1.62 % (20.25 mg/1.25 1 packet topical DAILY 08/29/24 04/10/25 gram) transdermal gel packet methocarbamol 500 mg tablet 500 mg PO Q8H PRN back spasms 01/02/25 04/10/25 midodrine 10 mg tablet 10 mg PO .during dialysis PRN low 01/02/25 04/10/25 bp bumetanide 2 mg tablet 2 mg PO Q12H 04/06/25 04/10/25 calcium acetate(phosphat bind) 667 1,334 mg PO TID 04/06/25 mg capsule Previous Rx's ?Medication ?Instructions ?Recorded hydrocodone 5 mg-acetaminophen 325 1 tab PO Q6H PRN pain #5 tabs 04/20/25 mg tablet Allergies Allergy/AdvReac Type Severity Reaction Status Date / Time vancomycin AdvReac Severe rash Verified 04/10/25 17:36 adhesive AdvReac Intermediate rash Verified 04/10/25 17:36 latex AdvReac Mild Rash Verified 04/10/25 17:36 sunflower seed AdvReac Mild Congested Verified 04/10/25 17:36 Opioid HPI Opioid Management Most Recent Opioid Data: Last Pain Scale 10 Today, 09:00 Review of Systems ROS Narrative A ten point review of systems is negative except as noted above. 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 General: The patient appears in no acute distress. Skin: Warm, dry, no pallor noted. There is no rash noted. Head: Normocephalic, atraumatic Eye: Normal conjunctiva, no drainage Ears, Nose, Mouth, and Throat: oral mucosa is moist. Nares patent. Cardiovascular: Regular Rate and Rhythm Respiratory: Patient is in no distress, no accessory muscle use Musculoskeletal: His feet are examined. He has open wound without drainage or surrounding erythema. No evidence of an infection. Neurological: A&O, normal speech Psychiatric: Cooperative Constitutional Vital Signs, click to edit/add: Last Vital Signs Temp 98.8 F 04/20/25 08:53 Pulse 75 04/20/25 08:53 Resp 18 04/20/25 08:53 Pulse Ox 98 04/20/25 08:53 O2 Del Method Room Air 04/20/25 08:53 Course Vital Signs Vital signs: Vital Signs Temperature 98.8 F 04/20/25 08:53 Pulse Rate 75 04/20/25 08:53 Respiratory Rate 18 04/20/25 08:53 Pulse Oximetry 98 04/20/25 08:53 Oxygen Delivery Method Room Air 04/20/25 08:53 Temperature 98.8 F 04/20/25 08:53 Pulse Rate 75 04/20/25 08:53 Respiratory Rate 18 04/20/25 08:53 Pulse Oximetry 98 04/20/25 08:53 Oxygen Delivery Method Room Air 04/20/25 08:53 Medical Decision Making MDM Narrative Medical decision making narrative: I had a discussion with him regarding obtaining pain medications for chronic conditions from the emergency department. I have told him that he would receive a prescription for a very limited quantity today but I would not prescribe him any more narcotics in the future for this condition. He was encouraged to have follow-up with his pain management physician and family physician. Differential Diagnosis Differential Diagnosis: Chronic pain, diabetic neuropathy Medical Records Medical records reviewed: Yes I reviewed the patient's medical records Discharge Plan Discharge Chief Complaint: Extremity Problem, Nontraumatic Clinical Impression: Chronic foot pain Patient Disposition: Home, Self-Care Time of Disposition Decision: 09:13 Condition: Good Mode of Transportation: Private Vehicle Prescriptions / Home Meds: New hydrocodone-acetaminophen 5-325 mg tablet 1 tab PO Q6H PRN (Reason: pain) Qty: 5 0RF No Action methocarbamol 500 mg tablet 500 mg PO Q8H PRN (Reason: back spasms) midodrine 10 mg tablet 10 mg PO .during dialysis PRN (Reason: low bp) anastrozole 1 mg tablet 1 mg PO DAILY aspirin 81 mg tablet,chewable 1 tab PO DAILY atorvastatin 20 mg tablet 20 mg PO DAILY Dialyvite [id number]-mg tablet 1 tab PO DAILY calcitriol 0.25 mcg capsule 0.25 mcg PO QWEEK carvedilol 6.25 mg tablet 6.25 mg PO Q12H escitalopram oxalate 10 mg tablet 10 mg PO DAILY pregabalin 150 mg capsule 150 mg PO TID furosemide 80 mg tablet 80 mg PO Q12H insulin glargine [Lantus Solostar U-100 Insulin] 100 unit/mL (3 mL) insulin pen 60 unit SUBCUT QAM insulin lispro [Humalog KwikPen Insulin] 100 unit/mL insulin pen 10 unit SUBCUT .meal Patient Comments: unknown ? levothyroxine 100 mcg tablet 100 mcg PO DAILY sevelamer carbonate 800 mg tablet 800 mg PO TID Xphozah 30 mg tablet 30 mg PO DAILY testosterone 1.62 % (20.25 mg/1.25 gram) gel in packet 1 packet topical DAILY bumetanide 2 mg tablet 2 mg PO Q12H calcium acetate(phosphat bind) 667 mg capsule 1,334 mg PO Print Language: Taiwanese Instructions: Chronic Pain (ED) Additional Instructions: Future pain medications for this chronic condition will need to come from the pain management physician. Referrals: ANGEL RICKETTS [Primary Care Provider, Family Practice] - 1 week
== END 2025-04-20 09:32 | disposition home or self-care (01) ==
PROVIDERS: Emergency Provider Emergency Medicine; PCP Family Medicine
DX: M79.671 Pain in right foot (principal); M79.672 Pain in left foot
CPT/HCPCS: 99283

== ENCOUNTER 2025-05-14 22:11 | Emergency (ER) | payer MEDICARE, SELFPAY ==
[2025-05-14 22:31] VITALS: BP 190/90; PULSE 85; TEMP 36.4; O2SAT 98; BMI 42.4
--- OUTSIDE RECORDS SUMMARY | 2025-05-14 22:37 | XMS_ITS | CCD ---
Author Organization [facility] ion [facility] Care Team Providers Care Residential Solar Sales Consultant Name Role Phone Ada Uriostegui Unavailable BERTIN RUSSELL Admitting Unavailable BERTIN RUSSELL Attending Unavailable IDANIA RICKETTS Primary Care Unavailable IDANIA RICKETTS Referring Unavailable Marilin, Idania Primary Care Provider MD Ada Uriostegui Attending Provider DO Idania Ricketts Primary Care Provider MD Ada Uriostegui Attending Provider Sj Francois Primary Care Physician Sj Garcia Unavailable Unavailable Sj Francois Primary Care Physician Samantha Ricketts, Idania Primary Care Provider [phone] MD Ada Uriostegui Attending Provider DO Yosef Castillo Emergency Provider [phone] Sj Francois Primary Care Physician Samantha Ricketts, Idania Primary Care Provider MD Ada Uriostegui Attending Provider MD Evans Narayanan Jr Emergency Provider Sj Francois Primary Care Physician Sj Garcia Primary Care Physician Samantha Ricketts, Idania Primary Care Provider [phone] MD Ada Uriostegui Attending Provider Sj Francois DPM Attending Idania Gonzalez Primary Care Unavailable Idania Ricketts Consulting Unavailable Alessandro DPM, Sj Fraga Attending Sj Garcia Primary Care Physician Samantha Ricketts, Idania Primary Care Provider HARSH Hill Emergency Provider Vandanaick, Idania Primary Care Provider MD Ada Uriostegui Attending Provider MD Delano Mondragon Emergency Provider DO Chintan Brewster Admit Provider [phone] DO Chintan Brewster Attending Provider MD Jf Liu Other Provider MD Ada Uriostegui Other Provider MD Zenon Cage Other Provider MD Anders [facility] Other Provider MD Yocasta Villalba Other Provider Marilin, Idania Primary Care Provider MD Evans Narayanan Jr Emergency Provider HARSH Hill Emergency Provider [phone] MD Ada Uriostegui Attending Provider MD Delano Mondragon Emergency Provider [phone] DO Chintan Brewster Admit Provider DO Chintan Brewster Attending Provider MD Jf Liu Other Provider MD Ada Uriostegui Other Provider MD Zenon Cage Other Provider [phone] MD Anders [facility] Other Provider MD Yocasta Villalba Other Provider [...] Francois, Sj P Primary Care Physician Samantha Kennedy, Tondra Unavailable Petznick, DO Idania Primary Care Provider Mapus, SCOUT EXECUTIVE Tondra K Attending Provider [phone] DO Chintan Brewster Attending Provider [phone] Sj Francois Primary Care Physician Samantha Francois, Sj P Primary Care Physician Samantha tate Alessandro, Sj P Primary Care Physician Liliamvanathaniel tate Alessandro, Sj P Primary Care Physician Unavanathaniel tate Petlizbethick, DO Idania Primary Care Provider [phone] Mapus, SCOUT EXECUTIVE Tondra K Attending Provider [phone] DO Chintan Brewster Attending Provider [phone] Mohitar, DO Clara Mcfarlane Emergency Provider [phone] [facility], Sj Singh Primary Care Physician Rasheeda Kirkland Unavailable Petznick, DO Idania Primary Care Provider MD Ramirez Jean Attending Provider [phone] Petznick, DO Idania Primary Care Provider [phone] MD Chintan Sweet Emergency Provider MD Augusta Hill Attending Provider Ramirez Jean Unavailable Petznaston DO, Idania M Unavailable Petznick DO, Idania M Unavailable Petkorina DO, Idania M Primary Care Provider DO Flakito High Attending Provider Sj Francois Primary Care Physician Samantha Ricketts, Idania Primary Care Provider MD Ramirez Jean Attending Provider [phone] MD Chintan Sweet Emergency Provider MD Augusta Hill Attending Provider DO Flakito High Attending Provider DO Flakito High Referring Provider DO Chong Dixon Emergency Provider DO Buddy Murguia Admit Provider [phone] DO Buddy Murguia Attending Provider MD Yocasta Villalba Other Provider MD Chintan Hernández Other Provider TIARA Vu Other Provider DO Amy Escudero Attending Provider DO Clara Bell Emergency Provider Petkorina, Idania Primary Care Provider MD Ramirez Jean Attending Provider TIARA Mondragon Attending Provider Marilin, Idania Primary Care Provider Marilin, Idania Primary Care Provider DO Flakito High Attending Provider Petznick, DO Idania Primary Care Provider Rick, DO Chong A Emergency Provider Petkorina CALABRESE, Idania M Unavailable Petznick DO, Idania Primary Care Provider [phone] Delano Mondragon MD Emergency Provider Will Cerna PA-C Emergency Provider [phone] Lindbloom DO, Maxime Admit Provider Lindbloom DO, Maxime Attending Provider Chintan Hernández MD Other Provider Alexa PALOMARES, Jf Other Provider Wayne MICHEL-C, Marielos Other Provider Unavailable Ada Uriostegui MD Other Provider Yocasta Villalba MD Other Provider Gi Mondragon DPM Other Provider Petkorina CALABRESE, Idania Primary Care Provider Will Cerna PA-C Emergency Provider Lindbloom DO, Maxime Admit Provider Lindbloom DO, Maxime Attending Provider [phone] Chintan Hernández MD Other Provider Alexa PALOMARES, Jf Other Provider Wayne MICHEL-C, Marielos Other Provider Unavailable Ada Uriostegui MD Other Provider Orly PALOMARES, Yocasta Other Provider Giancarlo MENJIVAR, Gi Other Provider [phone] Venkat Burgos DO Emergency Provider IDANIA RICKETTS Attending Unavailable IDANIA RICKETTS Referring Unavailable GI MONDRAGON Attending Unavailable GI MONDRAGON Attending Unavailable IDANIA RICKETTS Referring Unavailable GI MONDRAGON Attending Unavailable GI [...] Attending Unavailable Declan Silverio APRN Emergency Provider Kralaina CALABRESE Ivana M Emergency Provider Unavailable Primary Care Provider Unavailabl e PETKORINA, IDANIA Primary Care Physician Delano Benavides Attending Unavailable Petznick DO, Idania Primary Care Provider Loretta DO Venkat M Emergency Provider Unavailable Petznick DO, Idania Primary Care Provider Petznick DO, Idania Referring Provider Jey Ramos MD Attending Provider Nuria Fermin LPN Attending Provider Unavailable Savanah Anthony APRN Emergency Provider Declan Silverio APRN Emergency Provider Will Cerna PA-C Emergency Provider Petznick DO, Idania M Primary Care Provider Petznick DO, Idania Primary Care Provider [phone] Bia Burgosed M Admitting Unavailable Loretta, Venkat M Attending Unavailable Petznick, Idania Primary Care Unavailable Declan Silverio Admitting Unavailable Declan Silverio Attending Unavailable Petznick, Idania Primary Care Unavailable Krise, Ivana M Attending Unavailable Krise, Ivana M Admitting Unavailable Petznick, Idania Primary Care Unavailable Lindbloom, Maxime Admitting Unavailabl e Lindbloom, Maxime Attending Unavailabl e Chintan Hernández Consulting Unavailable Petznick, Idania Primary Care Unavailable Jf Liu Consulting Unavailable RunMarielos mann Consulting Unavailable Moody, Ada Consulting Unavailable Bakhous, Aziz Consulting Unavailable Gi Mondragon Consulting Unavailable Kiepert, Savanah A Admitting Unavailable Kiepert, Savanah A Attending Unavailable Petznick, Idania Primary Care Unavailable Cerna, Will W Admitting Unavailable Cerna, Will W Attending Unavailable Petznick, Idania Primary Care Unavailable Cerna, Will W Admitting Unavailable Cerna, Will W Attending Unavailable Petznick, Idania Primary Care Unavailable Chong Dixon A Admitting Unavailable Chong Dixon A Attending Unavailable Petznick, Idania Primary Care Unavailable Delano Mondragon A Admitting Unavailable Delano Mondragon Attending Unavailable Petznick, Idania Primary Care Unavailable SHERLEY TEMPLETON Attending Unavailable PETZNICK, IDANIA M Primary Care [...] Unavailable PETZNICK, IDANIA M Primary Care Unavailable ALEC JACOBSON E Attending Unavailable JACOBSON ALEC E Referring Unavailable PETZNICK, IDANIA M Primary Care Unavailable JACOBSON, ALEC E Admitting Unavailable JACOBSON, ALEC E Attending Unavailable PETZNICK, IDANIA M Referring Unavailable PETZNICK, IDANIA M Primary Care Unavailable KAYLEE MESA Attending Unavailable PETZNICK, IDANIA M Referring Unavailable PETZNICK, IDANIA M Primary Care Unavailable PEDRO ALVAREZ Admitting Unavailable PEDRO ALVAREZ Attending Unavailable HEAVENLY BUENO Attending Unavailable FAUSTINO MOREL Attending Unavailable JOY WATERS Attending Unavailable JENIFER, REFUGIO Referring Unavailable MOUKARBEL, PEDRO Attending Unavailable CARTER, ERICK Attending Unavailable CRISENBERY, ADAMS Attending Unavailable COOLEY, CHONG Attending Unavailable MOREL, KARENH Attending Unavailable PERNE, JOY Attending Unavailable MOREL, BASMAH Attending Unavailable VIJENDRA, SIVAN Referring Unavailable YVONNE, BERTIN Referring Unavailable YVONNE, BERTIN Referring Unavailable JENIFER, REFUGIO Referring Unavailable JENIFER, REFUGIO Referring Unavailable COOLEY, CHONG Referring Unavailable BRADLEY UD DIN, UNKNOWN Attending Unavailab le JENIFER, REFUGIO Attending Unavailable CARTER, TRACEIN Attending Unavailable VIJENDRA, SIVAN Attending Unavailable COOLEY, CHONG Attending Unavailable PERNE, JOY Referring Unavailable MOUKARBEL, PEDRO Referring Unavailable COOLEY, CHONG Referring Unavailable HENLEY, ANYA Admitting Unavailable HENLEY, ANYA Referring Unavailable HENLEY, ANYA Attending Unavailable YVONNE, BERTIN Referring Unavailable CARTER, TRACEIN Attending Unavailable CARTER, JIANLIN Admitting Unavailable BAHHUR, TANVIR Attending Unavailable PETZNICK, IDANIA M Primary Care Unavailable PETZNICK, IDANIA Attending Unavailable PETZNICK, IDANIA Admitting Unavailable Nwokoro Chidoziri C Attending Unavailable PETZNICK, IDANIA M Primary Care Unavailable Allergies Allergy Classification Reported Allergen(s) Allergy Type Date of Onset Reaction(s) Facility Glycopeptides (antibiotic) (1 source) Vancomycin Drug Allergy 4 [facility] Haloperidol (1 source) Haloperidol Drug Allergy 4 [facility] Latex (1 source) Latex Substance Allergy 4 [facility] (20 sources) Latex; Translations: [latex] Allergy to substance (disorder) 2 [facility] Repository Comment on above: pt states allergy is only if exposed to latex for extended periods. (20 sources) Haloperidol; Translations: [haloperidol] Drug Allergy 3 [facility] Comment on above: anxious, restless, a gitated (2 sources) Adhesive agent; Translations: [ADHESIVE] Drug allergy (disorder) 2 [facility] Repository (20 sources) Vancomycin; Translations: [vancomycin] Drug Allergy 3 [facility] (20 sources) Hyde Oil; Translations: [SUNFLOWER OIL] Propensity to adverse reactions 8 GI intolerance [facility] (20 sources) Wound Dressing Adhesive Drug Allergy 2 Rash [facility] (3 sources) sunflower seed extract; Translations: [SUNFLOWER SEED] Drug Allergy 8 Abdominal Pain [facility] Work Phone: (1 source) Vancomycin Drug Allergy 5 [facility] Repository (3 sources) Adhesive Tape-Silicones; Translations: [ADHESIVE TAPE-SILICONES] Propensity to adverse reactions to drug 2 Rash [facility] Medications Current Medications Medication Drug Class(es) Dates Sig (Normalized) Sig (Original) acetaminophen 500 mg oral tablet (1 source) Start: 04-24-2025 take 2 tablets by mouth every six hours as needed for pain acetaminophen 325 mg / HYDROcodone bitartrate 5 mg oral tablet (17 sources) Opioid Agonist Start: 04-26-2025 End: 04-29-2025 HYDROcodone-acetam inophen (NORCO) 5-325 MG per tablet Indications: Chronic foot pain, unspecified laterality Take 1 tablet by mouth every 6 hours as needed for Pain for up to 3 days. Intended supply: 3 days. Take lowest dose possible to manage pain Max Daily Amount: 4 tablets 12 tablet 04/26/2025 04/29/2025 Active Start: 03-26-2025 End: 04-24-2025 take 1 tablet by mouth every four to six hours as needed for pain Hydrocodone-Acetaminophen 5-325 mg table t Discontinued 1 TAB PO EVERY 4-6 HOURS as needed for pain 7 3 March 26, 2025 April 24, 2025 8:42am Start: 11-28-2024 End: 02-13-2025 take 1 tablet by mouth every four to six hours as needed for pain Hydrocodone-Acetaminophen 5-325 mg table t Discontinued 1 TAB PO EVERY 4-6 HOURS as needed for pain 10 3 November 28, 2024 February 13, 2025 8:41am Start: 09-19-2024 End: 09-24-2024 take 1 tablet by mouth every six hours for pain HYDROcodone-acetaminophen (Evergreen) 5-325 MG tablet Indications: Lymphedema Take 1 tablet by mouth every 6 (six) hours if needed for severe pain for up to 5 days 20 tablet 09/19/2024 09/24/2024 Active Start: 08-29-2024 End: 09-04-2024 take 1 tablet by mouth every six hours as needed for pain HYDROcodone-acetaminophen (Evergreen) 5-325 MG tablet TAKE 1 TABLET BY MOUTH EVERY 6 HOURS FOR 5 DAYS NEEDED FOR PAIN 08/29/2024 09/04/2024 Discontinued (Therapy completed) Start: 05-11-2024 End: 05-16-2024 take 1 tablet by mouth every six hours for pain HYDROcodone-acetaminophen (Evergreen) 5-325 MG tablet Indications: Neuropathy Take 1 tablet by mouth every 6 (six) hours if needed for severe pain for up to 5 days 20 tablet 05/11/2024 05/16/2024 Active acetaminophen 325 mg / oxyCODONE hydrochloride 5 mg oral tablet (8 sources) Opioid Agonist Start: 02-02-2025 End: 02-05-2025 acetaminophen-oxycodone 325 mg-5 mg Tab 1 tab(s), Oral, q6hr for pain for 3 day(s), 12 tab(s), Refill(s) 0, [id number], 187, cm, 02/02/25 18:12:00 EDT, Height/Length Dosing, [...] (2 mg total) by mouth. Active calcitriol 0.17720 mg oral capsule (20 sources) Vitamin D3 [...] Active Calcium Acetate, Phos Binder, (PHOSLO PO) (2 sources) take 667 mg by mouth once daily [...] Continuous Blood Gluc Receiv er (Dexcom G7 Printer'S Devil) device (20 sources) Start: 12-21-2022 Continuous Blo od Gluc Printer'S Devil (Dexcom G7 Printer'S Devil) device 1 (one) time each day at the same time. 12/21/2022 Active Start: 12-21-2022 Continuous Blo od Gluc Printer'S Devil (Dexcom G7 Printer'S Devil) device 1 (one) time each day at [...] 11/16/2022 Active dexamethasone 1 mg oral tablet (2 sources) Corticosteroid take 1 tablet by mouth once daily as needed dexAMETHasone (DECADRON) 1 MG tablet Take 1 tablet by mouth daily as needed (as needed) Active diclofenac sodium 0.01 mg/mg topical gel (1 source) Nonsteroidal Anti-inflammatory Drug Start: 04-24-20 25 doxycycline hyclate 100 mg oral capsule (20 sources) Tetracycline-class Drug Start: 04-21-20 24 End: 05-01-20 24 doxycycline (Vibramycin) 100 MG capsule Indications: Cellulitis [...] 14 days ergocalciferol 1.25 mg oral capsule (2 sources) Provitamin D2 Compound take 1 capsule by mouth once daily ergocalciferol (ERGOCALCIFEROL) 1.25 MG (46186 UT) capsule Take 1 capsule by mouth [...] lispro protamine, human 50 unt/ml pen injector (4 sources) Insulin Analog insulin lispro p rotamin-lispro [...] morning. Active take 1 capsule by mo ut once daily levothyroxine 100 mcg capsule take 1 capsule (100 mcg) by oral route once daily take 1 tablet by nida once daily in the morning lidocaine 0.05 mg/mg medicated patch (6 sources) Antiarrhythmic, Amide Local Anesthetic Start: 04-24-2025 apply 1 dose topically every twenty-four hours as needed for pain Start: 02-13-2025 End: 03-26-2025 apply 1 dose topically once daily as needed for pain Lidocaine 5 % adhesive patch,medicated Discontinued 1 PATCH TOPICAL Daily as needed for pain February 13, 2025 12:00am March 26, 2025 8:41am leave on most painful area for up to 12 hrs methocarbamol 500 mg oral tablet (2 sources) Muscle Relaxant take 1 tablet by mouth three times daily as needed for muscle spasms methocarbamol (ROBAXIN) 500 MG tablet Take 1 tablet by mouth 3 times daily as needed (back spasms) Active midodrine hydrochloride 10 mg oral tablet (16 sources) alpha-Adrenergic Agonist Start: midodrine (Proamatine) 10 MG tablet TAKE 1 TABLET BY MOUTH NEEDED DURING DIALYSIS FOR BLOOD PRESSURE SUPPORT 09/13/2024 Active midodrine (PROAM ATINE) 2.5 mg tablet Take 4 tablets (10 mg total) by mouth. Active Mounjaro (2 sources) Mounjaro Active NON FORMULARY (2 sources) take 1 mg by mouth in the morning NON FORMULARY Take 1 mg by mouth in the morning. Med Name: anaotrozole . Active nortriptyline 25 mg oral capsule (1 source) Tricyclic Antidepressant Start: 04-27-20 take 1 capsule by mouth once daily nortriptyline (PAMELOR) 25 mg capsule Take 1 capsule (25 mg total) by mouth nightly. 30 capsule 1 04/27/2025 Active Start: 04-27-2025 take 1 capsule by mo uth once daily nortriptyline (PAMELOR) 25 mg capsule Take 1 capsule (25 mg total) by mouth nightly. 30 capsule 1 04/27/2025 Active ondansetron 4 mg disintegrating oral tablet (20 sources) Serotonin-3 Receptor Antagonist Start: 11-29-2023 take 2 tablets by mouth every eight [...] 2022 1:00am November 04, 2022 5:59pm pregabalin 75 mg oral capsule (20 sources) Start: 02-02-2025 End: 02-07-2025 take 1 capsule by mouth once daily pregabalin (LYRICA) 75 MG capsule Indications: Idiopathic peripheral neuropathy Take 1 capsule by mouth daily for 5 doses. Max Daily Amount: 75 mg 5 capsule 02/02/2025 Active Start: 10-18-2023 End: 03-26-2025 take 1 [...] Start: 10-10-2022 take 1 capsule by mo uth once daily Pregabalin (Lyrica) 50 mg capsule Active 50 MG PO Daily October 10, 2022 12:00am sevelamer carbonate 800 mg oral tablet (20 sources) Phosphate Binder Start: 07-26-2024 take 2 tablets by mouth three times daily at mealtime sevelamer (RENVELA) 800 mg tablet TAKE 2 TABLETS BY MOUTH THREE TIMES DAILY WITH MEALS 07/26/2024 Active Tenapanor HCl, CKD, (XPHOZAH) 30 MG TABS (2 sources) take 1 tablet by mouth twice daily Tenapanor HCl, CKD, (XPHOZAH) 30 MG TABS Take 30 mg by mouth 2 times daily Active Tirzepatide (Mounjaro) 10 MG/0.5ML solution auto-injector [...] per week 6 mL 3 08/07/2024 Active traZODone hydrochloride 50 mg oral tablet (20 [...] 10, 2022 5:28am Vitamin A 3 MG (29140 UT) (4 sources) take 1 capsule by mouth once jocelyn ly take 1 capsule by mouth once jocelyn ly Vitamin A 3 MG (30893 UT) 1 capsule Orally Once a day [...] Drug Class(es) Dates Sig (Normalized) Sig (Original) [id number] 200 actuat albuterol 0.09 mg/actuat metered dose [...] 0.08 mg/mg medicated patch (20 sources) Start: 04-11-2025 End: 04-11-2025 capsaicin-skin cleanser (QUTENZA) 8 % kit Indications: Diabetic peripheral neuropathy ([facility]) Apply 1,120 SQ CM (4 patches total) topically once for 1 dose. 1 kit 04/11/2025 04/11/2025 Start: 07-07-2024 End: 12-05-2024 Capsaicin-Cleansing Gel (Qut felicity) 8 % patch APPLY THE CONTENTS OF [...] 17, 2019 12:00am September 16, 2023 12:04pm take 1 capsule by mouth once jocelyn ly vitamin D (CHOLECALCIFEROL) 125 MCG (5000 UT) CAPS capsule Take 1 capsule by mouth daily Active cholecalciferol (D3-5) 5,000 Units tablet Daily. Active take 2 capsules by m outh [...] tablet (20 sources) Serotonin Reuptake Inhibitor Start: 05-16-2024 End: 12-05-2024 take 1 tablet by mouth once daily escitalopram (Lexapro) 10 MG tablet Indications: Anxiety TAKE 1 TABLET(10 MG) BY MOUTH DAILY 90 tablet 1 09/13/2024 12/05/2024 Discontinued (Therapy completed) ferrous sulfate 325 mg oral tablet (20 [...] 8:41pm Start: 03-02-2023 take 2 tablets by mo [facility] in the morning furosemide (Lasix) 40 MG [...] 16, 2023 12:07pm take 1 tablet by nida every twelve hours Furosemide 80 MG 1 tablet Orally twice a day for 30 days Active take 2 tablets by mo [facility] every twenty-four hours Lasix 40 MG 2 [...] completed) Start: 05-17-2024 take 1 capsule by [facility] three times weekly gabapentin (Neurontin) 300 MG capsule Indications: Type 2 diabetes mellitus with peripheral neuropathy (CMS/HCC) Take 1 capsule (300 mg) by mouth 3 (three) times a week After dialysis 30 capsule 3 05/17/2024 Active Start: 05-17-2024 take 1 capsule by [facility] three times weekly gabapentin (Neurontin) 300 [...] 17, 2019 2:31pm take 2 capsules by [facility] four times daily gabapentin (NEURONTIN) 100 mg [...] 2022 5:29pm ibuprofen 600 mg oral tablet (12 sources) Nonsteroidal Anti-inflammatory Drug Start: 08-29-2024 End: [...] 2019 7:56pm linezolid 600 mg oral tablet (19 sources) Oxazolidinone Antibacterial Start: 11-23-2023 End: 10-29-2024 [...] 8 hours as needed for anxiety 7 May 15, 2024 12:00am March 26, 2025 8:41am [...] 18, 2023 8:50am [place] [address] mg powder for oral suspension (20 sources) [...] 1:00am July 15, 2018 12:27pm SZNERVE1 cream (5 sources) Start: 02-13-2025 End: 03-26-2025 apply 1-2 g topically three to four times daily SZNERVE1 cream Discontinued 1 - 2 GM TOPICAL 3 to 4 times per day February 13, 2025 12:00am March 26, 2025 [...] 0.23%, Gabapentin 6%, Lidocaine HCl 5% Cream 5000 mg testosterone 0.01 mg/mg topical gel (20 sources) Androgen Start: 09-16-2023 End: 04-24-2025 Testosterone 1 % (50 mg/5 gram) Gel In Packet Discontinued 1 PACKET TRANSDERML Daily September 16, 2023 1:00am April 24, 2025 8:42am Start: 12-29-2022 Testosterone 1 .62 % gel apply 2 PUMPS topically every morning 12/29/2022 Active Testosterone 20. 25 MG/ACT (1.62%) as directed Transdermal Once a day Active Tirzepatide (20 sources) Start: 10-06-2023 End: 03-26-2025 [...] per week 2 mL 3 10/11/2023 Active traMADol hydrochloride 50 mg oral tablet (20 sources) Opioid Agonist Start: 03-07-2025 End: 04-24-2025 take 2 tablets by mouth once daily at bedtime Tramadol 50 mg tablet Discontinued 50 MG PO Daily at bedtime March 07, 2025 4:04pm April 24, 2025 8:42am OK to take 2 pills on Dialysis days Start: 02-13-2025 End: 03-07-2025 take 1 tablet [...] 29, 2024 1:00am February 13, 2025 8:41am vitamin a 2.4 mg oral capsule (20 [...] 2022 12:00am take 1 capsule by mo [facility] once daily vitamin B complex capsule take 1 capsule by oral route daily Vitamin B Comple x - as directed Orally TWICE A DAY Active Vitamin B Complex Tablet (10 sources) Start: 07-29-2022 End: 09-16-2023 take 1 [...] 06-19-2019 Chronic Diseases of white blood cells (19 sources) Leukocytosis; Translations: [Elevated white blood cell [...] kidney disease] Onset: 2 Resolved: 2 Chronic Miscellaneous mental health disorders (20 sources) Anxiety; Translations: [Other symptoms and signs involving emotional state] 07-29-2022 Episodic Nutritional deficiencies (20 sources) Vitamin D deficiency; Translations: [Vitamin D deficiency, unspecified] Onset: 3 03-02-2023 Chronic Open wounds of extremities (20 sources) Unspecified open wound, right foot, initial encounter; Translations: [Injury of right foot] Onset: 2 11-22-2023 Episodic Other aftercare (1 source) Other half-way (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 therapy Episodic Other aftercare (15 sources) Drug therapy finding; Translations: [Other half-way (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 therapy] 12-16-2023 Episodic Other circulatory disease (16 sources) Arteriovenous fistula; 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 fistula, acquired] [...] (chronic) (peripheral)] 09-05-2024 Episodic Other endocrine disorders (13 sources) Hypoglycemia; Translations: [Hypoglycemia, unspecified] 03-26-2025 Chronic Other endocrine disorders (2 sources) Hypoglycemia, unspecified; Translations: [Hypoglycemia] Chronic Other endocrine disorders (20 sources) Male hypogonadism; Translations: [Testicular hypofunction] Onset: 2 10-13-2023 Chronic Other endocrine disorders (19 sources) Hyperparathyroidism; Translations: [Hyperparathyroidism, unspecified] 11-21-2023 Chronic Other endocrine disorders (2 sources) Hyperparathyroidism, unspecified; Translations: [Hyperparathyroidism, unspecified] 11-23-2023 Chronic Other endocrine disorders (2 sources) Testicular hypofunction; 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 Other gastrointestinal disorders (20 sources) Diarrhea; Translations: [Diarrhea, unspecified] Onset: 4 Resolved: 4 11-01-2022 Episodic Other injuries and conditions due to external causes (19 sources) Systemic inflammatory response syndrome; Translations: [Systemic [...] pain; Translations: [Other chronic pain] Onset: 2 02-13-2025 Chronic Other nervous system disorders (20 sources) Neuropathy; Translations: [Polyneuropathy, unspecified] 06-08-2024 Chronic Other nervous system disorders (4 sources) Idiopathic peripheral neuropathy; Translations: [Hereditary and idiopathic neuropathy, unspecified] Onset: 5 02-02-2025 Chronic Other nervous system disorders (14 sources) Chronic pain; Translations: [Other chronic pain] 02-13-2025 Chronic Other nervous system disorders (2 sources) Peripheral nerve disease ; Translations: [Polyneuropathy, unspecified] 03-26-2025 Chronic Other nervous system disorders (3 sources) Polyneuropathy, unspecified; Translations: [Polyneuropathy, unspecified] Onset: 5 Chronic Other nervous system disorders (1 source) Hereditary and idiopathic neuropathy, unspecified; Translations: [Hereditary and idiopathic neuropathy, unspecified] Onset: 5 Chronic Other non-traumatic joint disorders (1 source) [...] Chronic Other nutritional; endocrine; and metabolic disorders (19 sources) Hypomagnesemia; Translations: [Hypomagnesemia] 11-20-2023 Chronic Other [...] tissue Onset: 3 Episodic Other skin disorders (8 sources) 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 of right lower leg; [...] Sepsis; Translations: [Sepsis, unspecified organism] 11-21-2023 Episodic Thyroid disorders (20 sources) Hypothyroidism, unspecified; Translations: [Acquired hypothyroidism] Onset: 2 03-02-2023 Chronic Unclassified (1 source) CONTACT W/AND (SUSP) EXPOS COVID-19; Translations: [CONTACT W/AND (SUSP) EXPOS COVID-19] Onset: 2 Unclassified (2 sources) Low back pain, unspecified; Translations: [Low back pain, unspecified] Onset: 5 Unclassified (1 source) Med Refill Onset: 5 Unclassified (1 source) Wound check Onset: 5 Unclassified (2 sources) Post-op; Translations: [Post-op] Onset: 4 Viral infection (20 sources) Disease caused by 2019-nCoV; Translations: [COVID-19] Onset: 2 Resolved: 4 09-11-2021 Episodic Past or Other Problems Problem Classification Problem Date Documented Da te Episodic/Chronic Acquired foot deformities (1 source) Flat foot [pes planus] (acquired), left foot; Translations: [FLAT FOOT PES PLANUS ACQ LT FOOT] Onset: 03-05-2022 Episodic Administrative/social admission (20 sources) Dietary counseling and surveillance; Translations: [Patient [...] foot] Onset: 07-28-2019 Resolved: 11-29-2023 09-30-2023 Chronic Lymphadenitis (8 sources) Inguinal lymphadenopathy; Translations: [Localized enlarged lymph nodes] Onset: 08-08-2024 08-07-2024 Episodic Malaise and fatigue (20 sources) [...] sources) Long-term current use of insulin; 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] Onset: 03-02-2023 03-02-2023 Episodic Other aftercare (3 sources) 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; Translations: [Insulin long-term use] Onset: 10-29-2024 Episodic Other aftercare (2 sources) Encounter for follow-up examination after completed treatment for conditions other than malignant neoplasm; Translations: [Encounter for follow-up examination after completed treatment for conditions other than malignant neoplasm] Onset: 07-18-2024 Episodic Other and ill-defined heart disease (20 [...] Onset: 08-28-2024 Episodic Other connective tissue disease (4 sources) Foot pain; Translations: [Pain in unspecified foot] Onset: 10-25-2024 04-26-2025 Episodic Other connective tissue disease (2 sources) Neuralgia and neuritis, unspecified; Translations: [Neuralgia and neuritis, unspecified] Onset: 11-23-2024 Episodic Other diseases of veins and lymphatics [...] Resolved: 08-07-2024 10-13-2023 Episodic Residual codes; unclassified (1 source) Illness, unspecified; Translations: [Illness, unspecified] Onset: 12-30-2024 Episodic Residual codes; unclassified (2 sources) Tobacco use; Translations: [Tobacco use] Onset: 07-11-2024 Episodic Screening and history of mental health and substance abuse codes (20 sources) Ex-tobacco chewer; Translations: [Personal history of nicotine dependence] Onset: 04-05-2023 10-13-2023 Episodic Skin and subcutaneous tissue infections (20 sources) Cellulitis of lower limb; Translations: [Cellulitis of left lower limb] Onset: 03-15-2022 Resolved: 02-25-2024 06-18-2019 Episodic Spondylosis; intervertebral disc disorders; other back problems (20 sources) Lumbar radiculopathy; Translations: [Radiculopathy, lumbar region] Onset: 12-21-2024 02-13-2025 Episodic Superficial injury; contusion (20 sources) Blister [...] Test Name Value Interpretation Reference Range Facility 36on 05-11-2025 36 TC contacted patient for update on work up. Patient states still working on dental, pain management, podiatry, and hem/onc. Patient informed he will need to be seen for re-evaluation in July, and cardiac will need to be updated in July. Patient states understanding and will keep TC updated. Melinda Hidalgo RN Normal [facility] BEDSIDE GLUCOSEon 04-27-2025 Glucose [Mass/Vol] 90 mg/dL Normal 65-99 [facility] Comment on above: Performed By: #### B EDG #### [facility] ([address] Alanine aminotransferase [En zymatic activity/volume] in Serum or PlasmaOrdered By: Will Cerna on 03-26-2025 ALT [Catalytic activity/Vol] 16 U/L Normal 7-52 [facility] Comment on above: Performed By: #### C RP, BMP, CBC, ESR #### [facility] [address] [id number] [place] Albumin [Mass/volume] in Ser um or Plasma by Bromocresol green (BCG) dye binding methoOrdered By: Will Cerna on 03-26-2025 Albumin BCG dye [Mass/Vol] 4.3 g/dL 3.5-5.7 [facility] Alkaline phosphatase [Enzyma tic activity/volume] in Serum or PlasmaOrdered By: Will Cerna on 03-26-2025 ALP [Catalytic activity/Vol] 107 U/L High 34-104 [facility] Comment on above: Performed By: #### C RP, BMP, CBC, ESR #### [facility] [address] [place] [address] [place] Aspartate aminotransferase [ Enzymatic activity/volume] in Serum or PlasmaOrdered By: Will Cerna on 03-26-2025 AST [Catalytic activity/Vol] 11 U/L Low 13-39 [facility] Comment on above: Performed By: #### C RP, BMP, CBC, ESR #### [facility] [address] [place] [address] [place] Basic Metabolic Panelon 03-07 Creatinine Clr Calc Pharmacy 14.00 Normal [facility] Comment on above: Result Comment: PERF ORMED BY: [place] [address] PATHOLOGIST GASTROENTEROLOGY NURSE PRACTITIONER KWADWO SMITH M.D. Performed By: #### C RP, BMP, CBC, ESR #### [facility] [address] [place] [address] GFR/1.73 sq M.predicted MDRD (S/P/Bld) [Vol rate/Area] 6.133 mL/min/{1.73_m2} Normal [facility] Comment on above: Performed By: #### C RP, BMP, CBC, ESR #### [facility] [address] [place] [address] Basophils [#/volume] in Bloo d by Automated countOrdered By: Will Cerna on 03-26-2025 Basophils (Bld) [#/Vol] 0.1 10*3/uL Normal 0.0-0.2 [facility] Comment on above: Result Comment: PERF ORMED BY: [place] [address] PATHOLOGIST GASTROENTEROLOGY NURSE PRACTITIONER KWADWO SMITH M.D. Performed By: #### C RP, BMP, CBC, ESR #### [address] Basophils/100 leukocytes in Blood by Automated countOrdered By: Will Cerna on 03-26-2025 Basophils/100 WBC (Bld) 0.9 % Normal . [facility] Comment on above: Performed By: #### C RP, BMP, CBC, ESR #### [facility] [address] [place] [address] Bilirubin.direct [Mass/volum e] in Serum or PlasmaOrdered By: Will Cerna on 03-26-2025 Bilirubin.direct [Mass/Vol] 0.10 mg/dL 0.03-0.18 [facility] Bilirubin.total [Mass/volume ] in Serum or PlasmaOrdered By: Will Cerna on 03-26-2025 Bilirubin [Mass/Vol] 0.4 mg/dL Normal 0.3-1.0 [facility] Comment on above: Performed By: #### C RP, BMP, CBC, ESR #### [facility] [address] Calcium [Mass/volume] in Ser um or PlasmaOrdered By: Will Cerna on 03-26-2025 Calcium [Mass/Vol] 9.9 mg/dL Normal 8.6-10.3 [facility] Comment on above: Performed By: #### C RP, BMP, CBC, ESR #### [facility] [address] Capillary blood glucose shante urement by glucometer (mass/volume)Ordered By: Will Cerna on 03-26-2025 Glucose [Mass/Vol] 115 mg/dL Normal [facility] Comment on above: Random Glucose Refer ence Range is dependent on time and content of last meal. Glucose of more than 200 mg/dL in a nonstressed, ambulatory subject supports the diagnosis of Diabetes Mellitus. Result Comment: [place] Glucose Reference Range is dependent on time and content of last meal. Glucose of more than 200 mg/dL in a nonstressed, ambulatory subject supports the diagnosis of Diabetes Mellitus. PERFORMED BY: [place] [address] PATHOLOGIST GASTROENTEROLOGY NURSE PRACTITIONER KWADWO SMIHT M.D. Performed By: #### C RP, BMP, CBC, ESR #### [facility] [address] [place] [address] Carbon dioxide, total [Moles /volume] in Serum or PlasmaOrdered By: Will Cerna on 03-26-2025 CO2 [Moles/Vol] 24.9 mmol/L Normal 21.0-31.0 [facility] Comment on above: Performed By: #### C RP, BMP, CBC, ESR #### [address] Chloride [Moles/volume] in S james or PlasmaOrdered By: Will Cerna on 03-26-2025 Chloride [Moles/Vol] 102 mmol/L Normal 98-107 [facility] Comment on above: Performed By: #### C RP, BMP, CBC, ESR #### [address] Complete Blood Count Auto Di ffon 03-26-2025 Mean Corpuscular HGB Conc 34.0 g/dL Normal 32.5-35.6 [facility] Comment on above: Performed By: #### C RP, BMP, CBC, ESR #### [address] Monocytes/100 WBC (Bld) 16.12 % Normal 0.00-20.00 [facility] Comment on above: Performed By: #### C RP, BMP, CBC, ESR #### [address] NRBC% 0.0 /100{WBC} Normal 0-0.5 [facility] Comment on above: Performed By: #### C RP, BMP, CBC, ESR #### [address] White Blood Count 10.7 [CFU]/mL High 4.1-10.5 [facility] Comment on above: Performed By: #### C RP, BMP, CBC, ESR #### [address] Creatinine [Mass/volume] in Serum or PlasmaOrdered By: Will Cerna on 03-26-2025 Creatinine [Mass/Vol] 9.33 mg/dL High 0.70-1.30 [facility] Comment on above: Performed By: #### C RP, BMP, CBC, ESR #### [address] ECG 12 lead ECGon 03-26-2025 ECG 12 lead ECG [facility] [place] [address] [place] [address] Electrocardiograph Report Signed Patient: Evans Forte MR#: [id number] : 1970 Acct:[id number] Age/Sex: 55 / M ADM Date: 03/26/25 Loc: ER Room: Type: [facility] ER Attending Dr: Ordering Provider: Will Cerna [...] sinus rhythm Confirmed by Chong DIXON DO ([id number]) on 03/26/2025 7:13:58 PM Referred By: Electronically Signed By: Chong DIXON DO Transcribed By: MUS Signed By Chong Dixon DO 0 03/26/251913 Normal [facility] Eosinophils [#/volume] in Bl ood by Automated countOrdered By: Will Cerna on 03-26-2025 Eosinophils (Bld) [#/Vol] 0.4 10*3/uL Normal 0.0-0.45 [facility] Comment on above: Performed By: #### C RP, BMP, CBC, ESR #### [facility] [address] [place] [address] [place] Eosinophils/100 leukocytes i n Blood by Automated countOrdered By: Will Cerna on 03-26-2025 Eosinophils/100 WBC (Bld) 3.5 % Normal . [facility] Comment on above: Performed By: #### C RP, BMP, CBC, ESR #### [facility] [address] Erythrocyte distribution wid th [Ratio] by Automated countOrdered By: Will Cerna on 03-26-2025 Erythrocyte distribution width (RBC) [Ratio] 14.6 % Normal 12.0-14.8 [facility] Comment on above: Performed By: #### C RP, BMP, CBC, ESR #### [facility] [address] [place] [address] [place] Erythrocytes [#/volume] in B lood by Automated countOrdered By: Will Cerna on 03-26-2025 RBC (Bld) [#/Vol] 3.66 10*6/uL Low 3.90-5.60 [facility] Comment on above: Performed By: #### C RP, BMP, CBC, ESR #### [facility] [address] Glucose Poct Glucometerson 0 03-26-2025 Commemt1 Normal [facility] Comment on above: Result Comment: Glu2 : WILL NOTIFY DR/RN PERFORMED BY: [place] [address] PATHOLOGIST GASTROENTEROLOGY NURSE PRACTITIONER KWADWO SMITH M.D. Performed By: #### C RP, BMP, CBC, ESR #### [facility] [address] Glucose [Mass/Vol] 53 mg/dL Off scale low [facility] Comment on above: Result Comment: [place] om Glucose Reference Range is dependent on time and content of last meal. Glucose of more than 200 mg/dL in a nonstressed, ambulatory subject supports the diagnosis of Diabetes Mellitus. Performed By: #### C RP, BMP, CBC, ESR #### [address] Commemt1 Normal [facility] Comment on above: Result Comment: Glu2 : WILL NOTIFY DR/RN PERFORMED BY: [place] [address] PATHOLOGIST GASTROENTEROLOGY NURSE PRACTITIONER KWADWO SMITH M.D. Performed By: #### C RP, BMP, CBC, ESR #### [address] Glucose [Mass/Vol] 53 mg/dL Off scale low [facility] Comment on above: Result Comment: [place] om Glucose Reference Range is dependent on time and content of last meal. Glucose of more than 200 mg/dL in a nonstressed, ambulatory subject supports the diagnosis of Diabetes Mellitus. Performed By: #### C RP, BMP, CBC, ESR #### [place] [address] [place] Glucose [Mass/Vol] 60 mg/dL Off scale low [facility] Comment on above: Result Comment: [place] om Glucose Reference Range is dependent on time and content of last meal. Glucose of more than 200 mg/dL in a nonstressed, ambulatory subject supports the diagnosis of Diabetes Mellitus. PERFORMED BY: [place] [address] PATHOLOGIST GASTROENTEROLOGY NURSE PRACTITIONER KWADWO SMITH M.D. Performed By: #### C RP, BMP, CBC, ESR #### [facility] [address] [place] [address] [place] Glucose [Mass/volume] in Ser um or PlasmaOrdered By: Will Cerna on 03-26-2025 Glucose [Mass/Vol] 46 mg/dL Off scale low 70-100 [facility] Comment on above: Critical Result Call ed [...] #### C RP, BMP, CBC, ESR #### [address] Hematocrit [Volume Fraction] of Blood by Automated countOrdered By: Will Cerna on 03-26-2025 Hematocrit (Bld) [Volume fraction] 33.8 % Low 38.8-50.0 [facility] Comment on above: Performed By: #### C RP, BMP, CBC, ESR #### [facility] [address] [place] [address] [place] Hemoglobin [Mass/volume] in BloodOrdered By: Will Cerna on 03-26-2025 Hemoglobin (Bld) [Mass/Vol] 11.5 g/dL Low 13.0-17.0 [facility] Comment on above: Performed By: #### C RP, BMP, CBC, ESR #### [place] [address] [place] Hepatic Panelon 03-26-2025 Albumin [Mass/Vol] 4.3 g/dL Normal 3.5-5.7 [facility] Comment on above: Performed By: #### C RP, BMP, CBC, ESR #### [facility] [address] Bilirubin,Indirect 0.3 mg/dL Normal [facility] Comment on above: Performed By: #### C RP, BMP, CBC, ESR #### [facility] [address] Bilirubin.indirect [Mass/Vol] 0.10 mg/dL Normal 0.03-0.18 [facility] Comment on above: Performed By: #### C RP, BMP, CBC, ESR #### [facility] [address] Leukocytes [#/volume] correc scott for nucleated erythrocytes in Blood by Automated counOrdered By: Will Cerna on 03-26-2025 WBC corrected for nucl RBC Auto (Bld) [#/Vol] 10.7 10*3/uL High 4.1-10.5 [facility] Leukocytes [#/volume] in Blo od by Automated countOrdered By: Will Cerna on 03-26-2025 WBC (Bld) [#/Vol] 10.7 10*3/uL High 4.1-10.5 [facility] Comment on above: Performed By: #### C RP, BMP, CBC, ESR #### [facility] [address] Lymphocytes [#/volume] in Bl ood by Automated countOrdered By: Will Cerna on 03-26-2025 Lymphocytes (Bld) [#/Vol] 2.3 10*3/uL Normal 1.00-4.8 [facility] Comment on above: Performed By: #### C RP, BMP, CBC, ESR #### [facility] [address] Lymphocytes/100 leukocytes i n Blood by Automated countOrdered By: Will Cerna on 03-26-2025 Lymphocytes/100 WBC (Bld) 21.9 % Normal . [facility] Comment on above: Performed By: #### C RP, BMP, CBC, ESR #### [facility] [address] MCH [Entitic mass] by Automa scott countOrdered By: Will Cerna on 03-26-2025 MCH (RBC) [Entitic mass] 31.4 pg Normal 27.5-35.2 [facility] Comment on above: Performed By: #### C RP, BMP, CBC, ESR #### [address] MCHC Auto (RBC) [Mass/Vol]Or dered By: Will Cerna on 03-26-2025 MCHC (RBC) [Mass/Vol] 34.0 g/dL 32.5-35.6 [facility] MCV [Entitic volume] by Auto mated countOrdered By: Will Cerna on 03-26-2025 MCV (RBC) [Entitic vol] 92.3 fL Normal 83.5-101 [facility] Comment on above: Performed By: #### C RP, BMP, CBC, ESR #### [facility] [address] [place] [address] Monocyte distribution width [Entitic volume] in Blood by AutomatedOrdered By: Will Cerna on 03-26-2025 Monocyte distribution width Auto (Bld) [Entitic vol] 16.12 % 0.00-20.00 [facility] Monocytes [#/volume] in Bloo d by Automated countOrdered By: Will Cerna on 03-26-2025 Monocytes (Bld) [#/Vol] 0.9 10*3/uL High 0.0-0.8 [facility] Comment on above: Performed By: #### C RP, BMP, CBC, ESR #### [facility] [address] [place] [address] Monocytes/100 leukocytes in Blood by Automated countOrdered By: Will Cerna on 03-26-2025 Monocytes/100 WBC (Bld) 8.3 % Normal . [facility] Comment on above: Performed By: #### C RP, BMP, CBC, ESR #### [facility] [address] Neutrophils [#/volume] in Bl ood by Automated countOrdered By: Will Cerna on 03-26-2025 Neutrophils (Bld) [#/Vol] 7.0 10*3/uL Normal 1.8-7.7 [facility] Comment on above: Performed By: #### C RP, BMP, CBC, ESR #### [facility] [address] Neutrophils/100 leukocytes i n Blood by Automated countOrdered By: Will Cerna on 03-26-2025 Neutrophils/100 WBC (Bld) 65.4 % Normal . [facility] Comment on above: Performed By: #### C RP, BMP, CBC, ESR #### [facility] [address] No Panel InformationOrdered By: Will Cerna on 03-26-2025 Bedside Glucose Comment See comment [facility] Comment on above: Glu2: WILL NOTIFY DR /RN Estimated GFR (CKD-EPI) 6.133 mL/Min [facility] Creatinine Clearance (Chem 14.00 [facility] Nucleated erythrocytes [Pres ence] in Blood by Automated countOrdered By: Will Cerna on 03-26-2025 Nucleated RBC Auto Ql (Bld) 0.0 /100{WBC} 0-0.5 [facility] Platelet mean volume [Entiti c volume] in Blood by Automated countOrdered By: Will Cerna on 03-26-2025 Platelet mean volume (Bld) [Entitic vol] 7.6 fL Normal 6.6-10.1 [facility] Comment on above: Performed By: #### C RP, BMP, CBC, ESR #### [facility] [address] Platelets [#/volume] in Bloo d by Automated countOrdered By: Will Cerna on 03-26-2025 Platelets (Bld) [#/Vol] 255 10*3/uL Normal 150-450 [facility] Comment on above: Performed By: #### C RP, BMP, CBC, ESR #### [facility] [address] Potassium [Moles/volume] in Serum or PlasmaOrdered By: Will Cerna on 03-26-2025 Potassium [Moles/Vol] 4.8 mmol/L Normal 3.5-5.1 [facility] Comment on above: Performed By: #### C RP, BMP, CBC, ESR #### [facility] [address] [place] [address] Protein [Mass/volume] in Ser um or PlasmaOrdered By: Will Cerna on 03-26-2025 Protein [Mass/Vol] 8.0 g/dL Normal 6.4-8.9 [facility] Comment on above: Performed By: #### C RP, BMP, CBC, ESR #### [address] Serum globulin measurement b y calculation (mass/volume)Ordered By: iWll Cerna on 03-26-2025 Globulin (S) [Mass/Vol] 3.7 g/dL [facility] Comment on above: Performed By: #### C RP, BMP, CBC, ESR #### [facility] [address] [place] [address] Serum or plasma albumin/glob ulin mass ratioOrdered By: Will Cerna on 03-26-2025 Albumin/Globulin [Mass ratio] 1.2 {ratio} [facility] Comment on above: Performed By: #### C RP, BMP, CBC, ESR #### [facility] [address] [place] [address] Serum or plasma anion gap de terminationOrdered By: Will Cerna on 03-26-2025 Anion gap [Moles/Vol] 15.9 mmol/L High 6.0-15.0 [facility] Comment on above: Performed By: #### C RP, BMP, CBC, ESR #### [facility] [address] [place] [address] Serum or plasma non-glucuron idated bilirubin measurement (mass/volume)Ordered By: Will Cerna on 03-26-2025 Bilirubin.indirect [Mass/Vol] 0.3 mg/dL [facility] Sodium [Moles/volume] in Ser um or PlasmaOrdered By: Will Cerna on 03-26-2025 Sodium [Moles/Vol] 138 mmol/L Normal 136-145 [facility] Comment on above: Performed By: #### C RP, BMP, CBC, ESR #### [facility] [address] [place] [address] [place] Urea nitrogen [Mass/volume] in Serum or PlasmaOrdered By: Will Cerna on 03-26-2025 Urea nitrogen [Mass/Vol] 85 mg/dL High 7-25 [facility] Comment on above: Performed By: #### C RP, BMP, CBC, ESR #### [facility] [address] [place] [id number] [facility] Laboratory - Drug toxicology Ordered By: Jey Ramos on 02-13-2025 Amphetamines Ql (U) Negative [facility] Benzodiazepines Ql (U) Positive [facility] Cocaine Ql (U) Negative [facility] Opiates Ql (U) Negative [facility] Phencyclidine Ql (U) Negative [facility] No Panel InformationOrdered By: Jey Ramos on 02-13-2025 Urine Barbiturates Screen Negative [facility] Urine Marijuana (THC) Screen Positive [facility] ED Note-Physicianon 02-04-20 ED Note-Physician [...] for 3 day(s), 12 tab(s), Refill(s) 0, [id number], 187, cm, 02/02/25 18:12:00 EDT, Height/Length Dosing, 135, kg, 02/02/25 18:12:00 EDT, Weight Dosing Medications Administered Given acetaminophen-oxycodone 325 mg-5 mg Tab, 1 tab(s), Oral Disposition Plan Patient Discharge Condition Stable Discharge Disposition To home Discharge Prescription List Prescriptions acetaminophen-oxycodone 325 mg-5 mg Tab, 1 tab(s), Oral, q6hr, PRN Follow-up With When Contact Information IDANIA RICKETTS In 3 days 02/05/[address], [address] [place] [address]- [employer] (1) Additional Instructions: Call Dr for diagnosis based follow up Patient Education Peripheral Neuropathy Acute Pain, Adult Neuropathic Pain Attestation Patient seen and evaluated by the physician autopsy assistant. Attending physician was present in the emergency department and supervised care. This visit was performed by both the physician and an APC. I performed all aspects of the MDM as documented. This report was transcribed using voice recognition software. Every effort was made to ensure accuracy, however, inadvertently computerized director of undergraduate admissions mistakes may be present. Appropriate healthcare PPE [...] 01/06 (more content not included)... Normal [facility] Comment on above: Result Comment: Elec tronically Signed By: Star Saucedo PA-C\.br\Date and Time Signed: 02/02/25 18:41 EDT\.br\Electronically Co-Signed By: Delano Benavides DO\.ryan\Date and Time Co-Signed: 02/03/25 06:04 EDT Basic Metabolic Panelon 01-06 Est, Glom Filt Rate 9 Low - PINF [facility] Comment on above: These results are [...] Interpretation and review of laboratory results Abnormal [facility] Urea nitrogen/Creatinine [Mass ratio] 10 mg/mg 9 - 20 [facility] [facility] Basic Metabolic Profon 02-02 Anion gap [Moles/Vol] 16 mmol/L Normal 9-16 [facility] Comment on above: Performed By: #### B MP #### [address] [place] [address] Inter Com Servicer: Meredith Nolen MD Calcium [Mass/Vol] 9.3 mg/dL Normal 8.6-10.4 [facility] Comment on above: Performed By: #### B MP #### [address] [place] [address] Inter Com Servicer: Meredith Nolen MD Chloride [Moles/Vol] 98 mmol/L Normal 98-107 [facility] Comment on above: Performed By: #### B MP #### [address] [place] [address] Inter Com Servicer: Meredith Nolen MD CO2 [Moles/Vol] 23 mmol/L Normal 20-31 [facility] Comment on above: Performed By: #### B MP #### [address] [place] [address] Inter Com Servicer: Meredith Nolen MD Creatinine [Mass/Vol] 7.0 mg/dL Critically high 0.70-1.20 [facility] Comment on above: Performed By: #### B MP #### [facility] [address] [place] [address] [place] [address] Inter Com Servicer: Meredith Nolen MD Glucose [Mass/Vol] 296 mg/dL High 74-99 [facility] Comment on above: Performed By: #### B MP #### [facility] [address] [place] [address] [place], [place] [id number] Inter Com Servicer: Meredith Nolen MD Potassium [Moles/Vol] 6.1 mmol/L Critically high 3.7-5.3 [facility] Comment on above: Specimen hemolysis h as exceeded the interference as defined by Yaima. Value may be falsely increased. Suggest recollection if clinically indicated. Result Comment: Spec imen hemolysis has exceeded the interference as defined by Yaima. Value may be falsely increased. Suggest recollection if clinically indicated. Performed By: #### B MP #### [facility] [address] [place] [address] Dr[place], [place] [id number] Inter Com Servicer: Meredith Nolen MD Sodium [Moles/Vol] 137 mmol/L Normal 136-145 [facility] Comment on above: Performed By: #### B MP #### [address] [place], [place] [id number] Inter Com Servicer: Meredith Nolen MD Urea nitrogen [Mass/Vol] 69 mg/dL High 6-20 [facility] Comment on above: Performed By: #### B MP #### [facility] [address] [place] [address] [place], [place] [id number] Inter Com Servicer: Meredith Nolen MD BUN/CRE Ratio 10 Normal 9-20 [facility] Comment on above: Performed By: #### B MP #### [facility] [address] [place] [address] [place], [place] [id number] Inter Com Servicer: Meredith Nolen MD GFR/1.73 sq M.predicted among non-blacks MDRD (S/P/Bld) [Vol rate/Area] 9 mL/min/{1.73_m2} Low >60 [facility] Comment on above: Result Comment: These [...] secretion. Performed By: #### B MP #### [facility] [address] [place] [address] Inter Com Servicer: Meredith Nolen MD CBC with Auto Differentialon 02-02-2025 Basophils (Bld) [#/Vol] 0.04 10*3/uL [facility] Basophils/100 WBC (Bld) 0 % 0 - 2 % [facility] Eosinophils (Bld) [#/Vol] 0.35 10*3/uL [facility] Eosinophils/100 WBC (Bld) 3 % 1 - 4 % [facility] Erythrocyte distribution width (RBC) [Ratio] 14.6 % High 11.8 - 14.4 % [facility] Hematocrit (Bld) [Volume fraction] 31.8 % Low 40.7 - 50.3 % [facility] Hemoglobin (Bld) [Mass/Vol] 10.4 g/dL Low 13.0 - 17.0 g/dL [facility] Immature granulocytes (Bld) [#/Vol] 0.13 10*3/uL [facility] Immature granulocytes/100 WBC (Bld) 1 % High 0 [facility] Interpretation and review of laboratory results Abnormal [facility] Lymphocytes/100 WBC (Bld) 13 % Low 24 - 43 % [facility] Lymphocytes/100 WBC (Bld) 1.35 % [facility] MCH (RBC) [Entitic mass] 31.3 pg 25.2 - 33.5 pg [facility] MCHC (RBC) [Mass/Vol] 32.7 g/dL 28.4 - 34.8 g/dL [facility] MCV (RBC) [Entitic vol] 95.8 fL 82.6 - 102.9 fL [facility] Monocytes/100 WBC (Bld) 7 % 3 - 12 % [facility] Monocytes/100 WBC (Bld) 0.76 % [facility] Neutrophils/100 WBC (Bld) 76 % High 36 - 65 % [facility] Nucleated RBC/100 WBC (Bld) [Ratio] 0 % 0.0 per 100 WBC [facility] Platelet mean volume (Bld) [Entitic vol] 10.1 fL 8.1 - 13.5 fL [facility] Platelets (Bld) [#/Vol] 208 10*3/uL [facility] RBC (Bld) [#/Vol] 3.32 10*6/uL Low 4.21 - 5.7 7 m/uL [facility] Segmented neutrophils/100 WBC (Bld) 7.75 % [facility] WBC other (Bld) [#/Vol] 10.4 [facility] CBC with Diffon 02-02-2025 Abs. Basophil 0.04 k/uL Normal 0.00-0.20 [facility] Comment on above: Performed By: #### C DP, REJEC #### [facility] [address] [place] [address] [place], [place] [id number] Inter Com Servicer: Meredith Nolen MD Abs.Imm.Granulocyte 0.13 k/uL Normal 0.00-0.30 [facility] Comment on above: Performed By: #### C DP, REJEC #### [facility] [address] [place] [address] Inter Com Servicer: Meredith Nolen MD Abs.Neutrophil (Seg) 7.75 k/uL Normal 1.50-8.10 [facility] Comment on above: Performed By: #### C DP, REJEC #### [facility] [address] [place] [address] Inter Com Servicer: Meredith Nolen MD Basophils/100 WBC (Bld) 0 % Normal 0-2 [facility] Comment on above: Performed By: #### C DP, REJEC #### [facility] [address] [place] [address] Dr[place], [place] [id number] Inter Com Servicer: Meredith Nolen MD Eosinophils (Bld) [#/Vol] 0.35 10*3/uL Normal 0.00-0.44 [facility] Comment on above: Performed By: #### C DP, REJEC #### [address] [place] [address] Inter Com Servicer: Meredith Nolen MD Eosinophils/100 WBC (Bld) 3 % Normal 1-4 [facility] Comment on above: Performed By: #### C DP, REJEC #### [address] [place], [facility]83 Inter Com Servicer: Meredith Nolen MD Erythrocyte distribution width (RBC) [Ratio] 14.6 % High 11.8-14.4 [facility] Comment on above: Performed By: #### C DP, REJEC #### [address] [place], [place] [address] Inter Com Servicer: Meredith Nolen MD Hematocrit (Bld) [Volume fraction] 31.8 % Low 40.7-50.3 [facility] Comment on above: Performed By: #### C DP, REJEC #### [address] [place], [facility]83 Inter Com Servicer: Meredith Nolen MD Hemoglobin (Bld) [Mass/Vol] 10.4 g/dL Low 13.0-17.0 [facility] Comment on above: Performed By: #### C DP, REJEC #### [address] [place], [place] [id number] Inter Com Servicer: Meredith Nolen MD Immature granulocytes/100 WBC (Bld) 1 % High 0 [facility] Comment on above: Performed By: #### C DP, REJEC #### [facility] [address] [place], [place] [address] Inter Com Servicer: Meredith Nolen MD Lymphocytes (Bld) [#/Vol] 1.35 10*3/uL Normal 1.10-3.70 [facility] Comment on above: Performed By: #### C DP, REJEC #### [address] [place], [place] [address] Inter Com Servicer: Meredith Nolen MD Lymphocytes/100 WBC (Bld) 13 % Low 24-43 [facility] Comment on above: Performed By: #### C DP, REJEC #### [address] [place], [place] [address] Inter Com Servicer: Meredith Nolen MD MCH (RBC) [Entitic mass] 31.3 pg Normal 25.2-33.5 [facility] Comment on above: Performed By: #### C DP, REJEC #### [address] [place], [place] [address] Inter Com Servicer: Meredith Nolen MD MCHC (RBC) [Mass/Vol] 32.7 g/dL Normal 28.4-34.8 [facility] Comment on above: Performed By: #### C DP, REJEC #### [address] [place], [place] [address] Inter Com Servicer: Meredith Nolen MD MCV (RBC) [Entitic vol] 95.8 fL Normal 82.6-102.9 [facility] Comment on above: Performed By: #### C DP, REJEC #### [address] [place] [address] Inter Com Servicer: Meredith Nolen MD Monocytes (Bld) [#/Vol] 0.76 10*3/uL Normal 0.10-1.20 [facility] Comment on above: Performed By: #### C DP, REJEC #### [facility] [address] [place], [place] [id number] Inter Com Servicer: Meredith Nolen MD Monocytes/100 WBC (Bld) 7 % Normal 3-12 [facility] Comment on above: Performed By: #### C DP, REJEC #### [facility] [address] [place], [place] 3679583 Inter Com Servicer: Meredith Nolen MD Neutrophil (Seg) 76 % High 36-65 [facility] Comment on above: Performed By: #### C DP, REJEC #### [address] [place], [place] 096[address]83 Inter Com Servicer: Meredith Nolen MD NRBC Automated 0.0 per 100 WBC Normal 0.0 [facility] Comment on above: Performed By: #### C DP, REJEC #### [address] [place], [facility]83 Inter Com Servicer: Meredith Nolen MD Platelet mean volume (Bld) [Entitic vol] 10.1 fL Normal 8.1-13.5 [facility] Comment on above: Performed By: #### C DP, REJEC #### [address] [place], [place] 2768583 Inter Com Servicer: Meredith Nolen MD Platelets (Bld) [#/Vol] 208 10*3/uL Normal 138-453 [facility] Comment on above: Performed By: #### C DP, REJEC #### [address] [place], [place] [address]3 Inter Com Servicer: Meredith Nolen MD RBC (Bld) [#/Vol] 3.32 10*6/uL Low 4.21-5.77 [facility] Comment on above: Performed By: #### C DP, REJEC #### [address] [place] [address] Inter Com Servicer: Meredith Nolen MD WBC (Bld) [#/Vol] 10.4 10*3/uL Normal 3.5-11.3 [facility] Comment on above: Performed By: #### C DP, REJEC #### [facility] [address] [place], [place] [address] Inter Com Servicer: Meredith Nolen MD ED Clinical Summaryon 2024 ED Clinical Summary ED Clinical Summary [address] [address] ED Clinical Summary Person Information Name: JANNEVANS Armstrong Jr [facility] Age: 55 Years : 1970 Sex: Male Language: Hungarian PCP: IDANIA RICKETTS DO Marital Status: Visit [...] 02/02/2025 18:32:45 02/02/2025 18:32:45 02/02/2025 18:32:45 ADDRESS: [facility] [id number] PHYS DOC NOTES: MEDICAL INFORMATION: Prescriptions Given: New Medications [id number], [address] [place], [place] [id number], [phone] acetaminophen-oxycodone (acetaminophen-oxycodon e 325 mg-5 mg Tab) 1 Tablets By Mouth every 6 hours as needed for pain for 3 Days. Refills: 0. PATIENT EDUCATION INFORMATION: Instructions: Peripheral Neuropathy; Acute Pain, Adult; Neuropathic Pain Follow up: With: Address: When: IDANIA RICKETTS [address], [address] [id number] Business (1) In 3 days 02/05/2025 Comments: Call Dr for diagnosis based follow up DIAGNOSIS: Neuropathic pain Normal [facility] ED Patient Summaryon 025 ED Patient Summary ED Patient Summary [address] [address] Patient Discharge Instructions Person Information Name: EVANS FORTE Jr Age: 55 Years Arrival Date: 02/02/2025 18:02:34 Discharge Diagnosis: Neuropathic pain Primary Care Physician: IDANIA RICKETTS DO Provider Information Primary Provider: Delano Benavides DO Advanced Assistant Speech Language Pathologist:Star Saucedo PA-C The exam and treatment you received in the Emergency Department were for an urgent problem and are not intended as complete care. It is important that you follow up with a doctor, nurse practitioner, or physician???s autopsy assistant for ongoing care. If your symptoms [...] With: Address: When: IDANIA RICKETTS [address] [facility] [address], [place] [id number] [facility] () In 3 days 02/05/2025 Comments: Call Dr [...] opioids can be used to help relieve hdjqqeon-[id number] pain and are often prescribed following a [...] over (more content not included)... Normal [facility] Specimen Rejectionon 025 Reason for rejection Unable to perform testing: Specimen hemolyzed. Normal [facility] Comment on above: Performed By: #### C DP, REJEC #### [facility] [address] [place], [place] [id number] Inter Com Servicer: Meredith Nolen MD Source of sample .BLOOD Normal [facility] Comment on above: Performed By: #### C DP, REJEC #### [facility] [address] [place], [place] 8000683 Inter Com Servicer: Meredith Nolen MD Test ordered BMP [facility] Comment on above: Performed By: #### C DP, REJEC #### [facility] [address] [place] [address] Inter Com Servicer: Meredith Nolen MD XR FOOT RIGHT (MIN [...] by: Tami Concepcion MD 02/02/25 Final result [facility] XR Foot - right 3 Viewson 1. Soft tissue ulceration along the plantar aspect of the posterior heel. 2. No radiographic evidence of acute osteomyelitis. [facility] [[email or web address] RIS CONSOLIDATED EXAMINATION: THREE XRAY VIEWS OF THE [...] posterior heel. No evidence of osseous erosions. [facility] [[email or web address]] Tami Patiño MD - 02/02/2025 EXAMINATION: THREE XRAY VIEWS [...] 2. No radiographic evidence of acute osteomyelitis. [facility] Radiology Study observation (narrative) [facility] XR Foot - right 3 ViewsOrder ed By: Tami Concepcion on 02-02-2025 [facility] Work Phone: 36on 01-15-2025 36 Contacted patient regarding pamela MOEM to contact clinic. [facility] 36on 01-02-2025 36 Please advise on nex t step. Medicare will not cover Nucynta for his diagnosis. [facility] 36 Patient asking if he can get some pain meds ordered since his SCS trial today was canceled due to not being approved. Nucynta was not approved by his insurance. Patient aware we will contact him after hearing back from provider. Thanks [facility] Orders Onlyon 01-02-2025 Orders Only [id number] [place] 1970 M Date Provider Department Center 01/02/2025 Marie-YOLIE MYRICK MP PAIN [facility] Family History Problem [...] Maternal Grandmother Daughter Father's Brother Alive Normal [facility] Telephoneon 01-02-2025 Telephone [phone] Evans Forte 1970 M Date Provider Department [...] Maternal Grandmother Daughter Father's Brother Alive Normal [facility] Alanine aminotransferase [En zymatic activity/volume] in Serum or PlasmaOrdered By: Ivana Salcedo on 01-01-2025 ALT [Catalytic activity/Vol] Alanine aminotransferase [Enzymatic activity/volume] in Serum or Plasma [address] [place] [address] ALT [Catalytic activity/Vol] 28 U/L Normal [address] [place] [address] Comment on above: Performed By: #### C RP, BMP, CBC, ESR #### [address] Albumin [Mass/volume] in Ser um or Plasma by Bromocresol green (BCG) dye binding methoOrdered By: Ivana Salcedo on 01-01-2025 Albumin BCG dye [Mass/Vol] Albumin [Mass/volume] in Serum or Plasma by Bromocresol green (BCG) dye binding metho 3.5-5.7 [facility] Albumin BCG dye [Mass/Vol] 4.4 g/dL 3.5-5.7 [facility] Alkaline phosphatase [Enzyma tic activity/volume] in Serum or PlasmaOrdered By: Ivana Salcedo on 01-01-2025 ALP [Catalytic activity/Vol] Alkaline phosphatase [Enzymatic activity/volume] in Serum or Plasma 34-104 [facility] ALP [Catalytic activity/Vol] 88 U/L Normal 34-104 [facility] Comment on above: Performed By: #### C RP, BMP, CBC, ESR #### [address] Aspartate aminotransferase [ Enzymatic activity/volume] in Serum or PlasmaOrdered By: Ivana Salcedo on 01-01-2025 AST [Catalytic activity/Vol] Aspartate aminotransferase [Enzymatic activity/volume] in Serum or Plasma Low 13-39 [facility] AST [Catalytic activity/Vol] 10 U/L Low 13-39 [facility] Comment on above: Performed By: #### C RP, BMP, CBC, ESR #### [facility] [address] [place] [address] Basophils Auto (Bld) [#/Vol] Ordered By: Ivana Salcedo on 01-01-2025 Basophils (Bld) [#/Vol] Automated basophil count 0.0-0.2 [facility] Basophils [#/volume] in Bloo d by Automated countOrdered By: Ivana Salcedo on 01-01-2025 Basophils (Bld) [#/Vol] 0.1 10*3/uL Normal 0.0-0.2 [facility] Comment on above: Result Comment: PERF ORMED BY: [place] [address] PATHOLOGIST GASTROENTEROLOGY NURSE PRACTITIONER KIM ELLIOTT M.D. Performed By: #### C RP, BMP, CBC, ESR #### [address] Basophils/100 WBC Auto (Bld) Ordered By: Ivana Salcedo on 01-01-2025 Basophils/100 WBC (Bld) Automated basophil % . [facility] Basophils/100 leukocytes in Blood by Automated countOrdered By: Ivana Salcedo on 01-01-2025 Basophils/100 WBC (Bld) 0.8 % Normal . [facility] Comment on above: Performed By: #### C RP, BMP, CBC, ESR #### [facility] [address] [place] [address] Bilirubin.total [Mass/volume ] in Serum or PlasmaOrdered By: Ivana Salcedo on 01-01-2025 Bilirubin [Mass/Vol] Bilirubin.total [Mass/volume] in Serum or Plasma 0.3-1.0 [facility] Bilirubin [Mass/Vol] 0.5 mg/dL Normal 0.3-1.0 [facility] Comment on above: Performed By: #### C RP, BMP, CBC, ESR #### [facility] [address] COVID Cepheid NegativeOrdere d By: Ivana Salcedo on 01-01-2025 SARS-CoV-2 (COVID-19) Ab IA Ql COVID Cepheid Negative [facility] Comment on above: This is a duplicate Cepheid Xpert Xpress CoV-2/Flu/RSV Plus RNA by RT-PCR result to be used for statistical tracking purpose only. SARS-CoV-2 (COVID-19) Ab IA Ql Negative Negative [facility] Comment on above: This is [...] or Cepheid Disclaimer revoked sooner. PERFORMED BY: [place] [address] PATHOLOGIST GASTROENTEROLOGY NURSE PRACTITIONER KIM ELLIOTT M.D. Normal [facility] Comment on above: Performed By: #### C RP, BMP, CBC, ESR #### [address] Calcium [Mass/volume] in Ser um or PlasmaOrdered By: Ivana Salcedo on 01-01-2025 Calcium [Mass/Vol] Calcium [Mass/volume ] in Serum or Plasma 8.6-10.3 [facility] Calcium [Mass/Vol] 9.2 mg/dL Normal 8.6-10.3 [facility] Comment on above: Performed By: #### C RP, BMP, CBC, ESR #### [facility] [address] [place] [address] [place] Carbon dioxide, total [Moles /volume] in Serum or PlasmaOrdered By: Ivana Salcedo on 01-01-2025 CO2 [Moles/Vol] Carbon dioxide, tota l [Moles/volume] in Serum or Plasma 21.0-31.0 [facility] CO2 [Moles/Vol] 27.1 mmol/L Normal 21.0-31.0 [facility] Comment on above: Performed By: #### C RP, BMP, CBC, ESR #### [address] Cepheid COVID PCR Negativeon 01-01-2025 SARS-CoV-2 (COVID-19) RNA SHAY+probe Ql (Unsp spec) Negative Normal Negative [facility] Comment on above: Result Comment: This is a duplicate Cepheid Xpert Xpress CoV-2/Flu/RSV Plus RNA by RT-PCR result to be used for statistical tracking purpose only. PERFORMED BY: [place] [address] PATHOLOGIST GASTROENTEROLOGY NURSE PRACTITIONER KIM ELLIOTT M.D. Performed By: #### C RP, BMP, CBC, ESR #### [address] Chloride [Moles/volume] in S james or PlasmaOrdered By: Ivana Salcedo on 01-01-2025 Chloride [Moles/Vol] Chloride [Moles/vol ume] in Serum or Plasma 98-107 [facility] Chloride [Moles/Vol] 99 mmol/L Normal 98-107 [facility] Comment on above: Performed By: #### C RP, BMP, CBC, ESR #### [address] Complete Blood Count Auto Di ffon 01-01-2025 Mean Corpuscular HGB Conc 34.3 g/dL Normal 32.5-35.6 [facility] Comment on above: Performed By: #### C RP, BMP, CBC, ESR #### [address] Monocytes/100 WBC (Bld) 16.78 % Normal 0.00-20.00 [facility] Comment on above: Performed By: #### C RP, BMP, CBC, ESR #### [address] NRBC% 0.0 /100{WBC} Normal 0-0.5 [facility] Comment on above: Performed By: #### C RP, BMP, CBC, ESR #### [address] Comprehensive Metabolic Pane nick 01-01-2025 Albumin [Mass/Vol] 4.4 g/dL Normal 3.5-5.7 [facility] Comment on above: Performed By: #### C RP, BMP, CBC, ESR #### [address] Creatinine Clr Calc Pharmacy 20.53 Normal [facility] Comment on above: Result Comment: PERF ORMED BY: [place] [address] PATHOLOGIST GASTROENTEROLOGY NURSE PRACTITIONER KIM ELLIOTT M.D. Performed By: #### C RP, BMP, CBC, ESR #### [address] Estimated GFR 9.886 mL/Min Normal [facility] Comment on above: Performed By: #### C RP, BMP, CBC, ESR #### [address] Creatinine [Mass/volume] in Serum or PlasmaOrdered By: Ivana Salcedo on 01-01-2025 Creatinine [Mass/Vol] Creatinine [Mass/volume] in Serum or Plasma High 0.70-1.30 [facility] Creatinine [Mass/Vol] 6.30 mg/dL High 0.70-1.30 [facility] Comment on above: Performed By: #### C RP, BMP, CBC, ESR #### [facility] [address] [place] [address] D-Dimer High Sensitivityon 0 01-01-2025 D-Dimer High Sensitivity <200 Normal 0-243 [facility] Comment on above: Result [...] coagulation studies. Please contact the laboratory at [phone] for redraw instructions. PERFORMED BY: [place] [address] PATHOLOGIST GASTROENTEROLOGY NURSE PRACTITIONER KIM ELLIOTT M.D. Performed By: #### C RP, BMP, CBC, ESR #### [address] ECG 12 lead ECGon 01-01-2025 ECG 12 lead ECG [facility] [place] [address] [place] [address] Electrocardiograph Report Signed Patient: Evans Forte MR#: [id number] : 1970 Acct:[id number] Age/Sex: 54 / M ADM Date: 01/01/25 Loc: ER Room: Type: [facility] ER Attending Dr: Ordering Provider: [...] inversion avl Confirmed by Jessica Al MD ([id number]) on 01/02/2025 7:26:58 AM Referred By: Electronically Signed By: Jessica Al MD Transcribed By: MUS Signed By Jessica Al MD 12/06 05/31 0727 Normal [facility] Eosinophils Auto (Bld) [#/Vo l]Ordered By: Ivana Salcedo on 01-01-2025 Eosinophils (Bld) [#/Vol] Automated eosinophil count 0.0-0.45 [facility] Eosinophils [#/volume] in Bl ood by Automated countOrdered By: Ivana Salcedo on 01-01-2025 Eosinophils (Bld) [#/Vol] 0.2 10*3/uL Normal 0.0-0.45 [facility] Comment on above: Performed By: #### C RP, BMP, CBC, ESR #### [facility] [address] Eosinophils/100 WBC Auto (Bl d)Ordered By: Ivana Salcedo on 01-01-2025 Eosinophils/100 WBC (Bld) Automated eosinophil % . [facility] Eosinophils/100 leukocytes i n Blood by Automated countOrdered By: Ivana Salcedo on 01-01-2025 Eosinophils/100 WBC (Bld) 2.1 % Normal . [facility] Comment on above: Performed By: #### C RP, BMP, CBC, ESR #### [facility] [address] Erythrocyte distribution wid th Auto (RBC) [Ratio]Ordered By: Ivana Salcedo on 01-01-2025 Erythrocyte distribution width (RBC) [Ratio] Erythrocyte distribution width [Ratio] by Automated count High 12.0-14.8 [facility] Erythrocyte distribution wid th [Ratio] by Automated countOrdered By: Ivana Salcedo on 01-01-2025 Erythrocyte distribution width (RBC) [Ratio] 15.7 % High 12.0-14.8 [facility] Comment on above: Performed By: #### C RP, BMP, CBC, ESR #### [facility] [address] Erythrocytes [#/volume] in B lood by Automated countOrdered By: Ivana Salcedo on 01-01-2025 RBC (Bld) [#/Vol] 3.84 10*6/uL Low 3.90-5.60 [facility] Comment on above: Performed By: #### C RP, BMP, CBC, ESR #### [facility] [address] [id number] [facility] Fibrin D-dimer [Presence] in Platelet poor plasma by Latex agglutinationOrdered By: Ivana Salcedo on 01-01-2025 Fibrin D-dimer LA Ql (PPP) Fibrin D-dimer [Presence] in Platelet poor plasma by Latex agglutination 0-243 [facility] Comment on above: The reference [...] coagulation studies. Please contact the laboratory at [phone] for redraw instructions. Fibrin D-dimer LA Ql (PPP) < 200 ng/mL 0-243 [facility] Comment on above: The reference [...] coagulation studies. Please contact the laboratory at [phone] for redraw instructions. Globulin Calc (S) [Mass/Vol] Ordered By: Ivana Salcedo on 01-01-2025 Globulin (S) [Mass/Vol] Serum globulin measurement by calculation (mass/volume) [facility] Glucose [Mass/volume] in Ser um or PlasmaOrdered By: Ivana Salcedo on 01-01-2025 Glucose [Mass/Vol] Glucose [Mass/volume ] in Serum or Plasma High 70-100 [facility] Comment on above: ADA recommended refe rence rangeRandom Glucose Reference Range is dependent on time and content of last meal. Glucose of more than 200 mg/dL in a nonstressed, ambulatory subject supports the diagnosis of Diabetes Mellitus. Glucose [Mass/Vol] 185 mg/dL High 70-100 [facility] Comment on above: ADA recommended refe rence rangeRandom Glucose Reference Range is dependent on time and content of last meal. Glucose of more than 200 mg/dL in a nonstressed, ambulatory subject supports the diagnosis of Diabetes Mellitus. Result Comment: [place] om Glucose Reference Range is dependent on time and content of last meal. Glucose of more than 200 mg/dL in a nonstressed, ambulatory subject supports the diagnosis of Diabetes Mellitus. ADA recommended reference range Performed By: #### C RP, BMP, CBC, ESR #### [facility] [address] Hematocrit Auto (Bld) [Volum e fraction]Ordered By: Ivana Salcedo on 01-01-2025 Hematocrit (Bld) [Volume fraction] Hematocrit [Volume Fraction] of Blood by Automated count Low 38.8-50.0 [facility] Hematocrit [Volume Fraction] of Blood by Automated countOrdered By: Ivana Salcedo on 01-01-2025 Hematocrit (Bld) [Volume fraction] 35.0 % Low 38.8-50.0 [facility] Comment on above: Performed By: #### C RP, BMP, CBC, ESR #### [facility] [address] Hemoglobin [Mass/volume] in BloodOrdered By: Ivana Salcedo on 01-01-2025 Hemoglobin (Bld) [Mass/Vol] Hemoglobin [Mass/volume] in Blood Low 13.0-17.0 [facility] Hemoglobin (Bld) [Mass/Vol] 12.0 g/dL Low 13.0-17.0 [facility] Comment on above: Performed By: #### C RP, BMP, CBC, ESR #### [facility] [address] Leukocytes [#/volume] correc scott for nucleated erythrocytes in Blood by Automated counOrdered By: Ivana Salcedo on 01-01-2025 WBC corrected for nucl RBC Auto (Bld) [#/Vol] Leukocytes [#/volume] corrected for nucleated erythrocytes in Blood by Automated coun 4.1-10.5 [facility] WBC corrected for nucl RBC Auto (Bld) [#/Vol] 9.3 10*3/uL 4.1-10.5 [facility] Leukocytes [#/volume] in Blo od by Automated countOrdered By: Ivana Salcedo on 01-01-2025 WBC (Bld) [#/Vol] 9.3 10*3/uL Normal 4.1-10.5 [facility] Comment on above: Performed By: #### C RP, BMP, CBC, ESR #### [facility] [address] Lymphocytes Auto (Bld) [#/Vo l]Ordered By: Ivana Salcedo on 01-01-2025 Lymphocytes (Bld) [#/Vol] Lymphocytes [#/volume] in Blood by Automated count 1.00-4.8 [facility] Lymphocytes [#/volume] in Bl ood by Automated countOrdered By: Ivana Salcedo on 01-01-2025 Lymphocytes (Bld) [#/Vol] 1.4 10*3/uL Normal 1.00-4.8 [facility] Comment on above: Performed By: #### C RP, BMP, CBC, ESR #### [facility] [address] Lymphocytes/100 WBC Auto (Bl d)Ordered By: Ivana Salcedo on 01-01-2025 Lymphocytes/100 WBC (Bld) Lymphocytes/100 leukocytes in Blood by Automated count . [facility] Lymphocytes/100 leukocytes i n Blood by Automated countOrdered By: Ivana Salcedo on 01-01-2025 Lymphocytes/100 WBC (Bld) 14.7 % Normal . [facility] Comment on above: Performed By: #### C RP, BMP, CBC, ESR #### [facility] [address] MCH Auto (RBC) [Entitic mass ]Ordered By: Ivana Salcedo on 01-01-2025 MCH (RBC) [Entitic mass] MCH [Entitic mass] by Automated count 27.5-35.2 [facility] MCH [Entitic mass] by Automa scott countOrdered By: Ivana Salcedo on 01-01-2025 MCH (RBC) [Entitic mass] 31.3 pg Normal 27.5-35.2 [facility] Comment on above: Performed By: #### C RP, BMP, CBC, ESR #### [facility] [address] MCHC Auto (RBC) [Mass/Vol]Or dered By: Ivana Salcedo on 01-01-2025 MCHC (RBC) [Mass/Vol] MCHC [Mass/volume] by Automated count 32.5-35.6 [facility] MCHC (RBC) [Mass/Vol] 34.3 g/dL 32.5-35.6 [facility] MCV Auto (RBC) [Entitic vol] Ordered By: Ivana Salcedo on 01-01-2025 MCV (RBC) [Entitic vol] MCV [Entitic volume] by Automated count 83.5-101 [facility] MCV [Entitic volume] by Auto mated countOrdered By: Ivana Salcedo on 01-01-2025 MCV (RBC) [Entitic vol] 91.2 fL Normal 83.5-101 [facility] Comment on above: Performed By: #### C RP, BMP, CBC, ESR #### [facility] [address] Monocyte distribution width [Entitic volume] in Blood by AutomatedOrdered By: Ivana Salcedo on 01-01-2025 Monocyte distribution width Auto (Bld) [Entitic vol] Monocyte distribution width [Entitic volume] in Blood by Automated 0.00-20.00 [facility] Monocyte distribution width Auto (Bld) [Entitic vol] 16.78 % 0.00-20.00 [facility] Monocytes Auto (Bld) [#/Vol] Ordered By: Ivana Salcedo on 01-01-2025 Monocytes (Bld) [#/Vol] Automated blood monocyte count 0.0-0.8 [facility] Monocytes [#/volume] in Bloo d by Automated countOrdered By: Ivana Salcedo on 01-01-2025 Monocytes (Bld) [#/Vol] 0.8 10*3/uL Normal 0.0-0.8 [facility] Comment on above: Performed By: #### C RP, BMP, CBC, ESR #### [facility] [address] Monocytes/100 WBC Auto (Bld) Ordered By: Ivana Salcedo on 01-01-2025 Monocytes/100 WBC (Bld) Automated monocyte % . [facility] Monocytes/100 leukocytes in Blood by Automated countOrdered By: Ivana Salcedo on 01-01-2025 Monocytes/100 WBC (Bld) 8.8 % Normal . [facility] Comment on above: Performed By: #### C RP, BMP, CBC, ESR #### [facility] [address] [place] [address] [place] Neutrophils Auto (Bld) [#/Vo l]Ordered By: Ivana Salcedo on 01-01-2025 Neutrophils (Bld) [#/Vol] Neutrophils [#/volume] in Blood by Automated count 1.8-7.7 [facility] Neutrophils [#/volume] in Bl ood by Automated countOrdered By: Ivana Salcedo on 01-01-2025 Neutrophils (Bld) [#/Vol] 6.9 10*3/uL Normal 1.8-7.7 [facility] Comment on above: Performed By: #### C RP, BMP, CBC, ESR #### [facility] [address] [place] [address] [place] Neutrophils/100 WBC Auto (Bl d)Ordered By: Ivana Salcedo on 01-01-2025 Neutrophils/100 WBC (Bld) Automated neutrophil % . [facility] Neutrophils/100 leukocytes i n Blood by Automated countOrdered By: Ivana Salcedo on 01-01-2025 Neutrophils/100 WBC (Bld) 73.6 % Normal . [facility] Comment on above: Performed By: #### C RP, BMP, CBC, ESR #### [facility] [address] No Panel InformationOrdered By: Ivana Salcedo on 01-01-2025 Estimated GFR (CKD-EPI) 9.886 mL/Min [facility] Creatinine Clearance (Chem 20.53 [facility] Nucleated erythrocytes [Pres ence] in Blood by Automated countOrdered By: Ivana Salcedo on 01-01-2025 Nucleated RBC Auto Ql (Bld) Nucleated erythrocytes [Presence] in Blood by Automated count 0-0.5 [facility] Nucleated RBC Auto Ql (Bld) 0.0 /100{WBC} 0-0.5 [facility] Platelet mean volume Auto (B ld) [Entitic vol]Ordered By: Ivana Salcedo on 01-01-2025 Platelet mean volume (Bld) [Entitic vol] Platelet mean volume [Entitic volume] in Blood by Automated count 6.6-10.1 [facility] Platelet mean volume [Entiti c volume] in Blood by Automated countOrdered By: Ivana Salcedo on 01-01-2025 Platelet mean volume (Bld) [Entitic vol] 7.4 fL Normal 6.6-10.1 [facility] Comment on above: Performed By: #### C RP, BMP, CBC, ESR #### [facility] [address] Platelets Auto (Bld) [#/Vol] Ordered By: Ivana Salcedo on 01-01-2025 Platelets (Bld) [#/Vol] Platelets [#/volume] in Blood by Automated count 150-450 [facility] Platelets [#/volume] in Bloo d by Automated countOrdered By: Ivana Salcedo on 01-01-2025 Platelets (Bld) [#/Vol] 304 10*3/uL Normal 150-450 [facility] Comment on above: Performed By: #### C RP, BMP, CBC, ESR #### [facility] [address] [id number] [place] Potassium [Moles/volume] in Serum or PlasmaOrdered By: Ivana Salcedo on 01-01-2025 Potassium [Moles/Vol] Potassium [Moles/volume] in Serum or Plasma 3.5-5.1 [facility] Potassium [Moles/Vol] 4.8 mmol/L Normal 3.5-5.1 [facility] Comment on above: Performed By: #### C RP, BMP, CBC, ESR #### [facility] [address] [id number] [place] Protein [Mass/volume] in Ser um or PlasmaOrdered By: Ivana Salcedo on 01-01-2025 Protein [Mass/Vol] Protein [Mass/volume ] in Serum or Plasma 6.4-8.9 [facility] Protein [Mass/Vol] 8.4 g/dL Normal 6.4-8.9 [facility] Comment on above: Performed By: #### C RP, BMP, CBC, ESR #### [facility] [address] [id number] [facility] RBC Auto (Bld) [#/Vol]Ordere d By: Ivana Salcedo on 01-01-2025 RBC (Bld) [#/Vol] Erythrocytes [#/volu me] in Blood by Automated count Low 3.90-5.60 [facility] Respiratory specimen influen za A virus, influenza B virus, respiratory syncytical virOrdered By: Ivana Salcedo on 01-01-2025 SARS-CoV-2 (COVID-19) RNA SHAY+probe Ql (Unsp spec) Respiratory specimen influenza A virus, influenza B virus, respiratory syncytical vir [facility] SARS-CoV-2 (COVID-19) RNA SHAY+probe Ql (Unsp spec) [facility] Serum globulin measurement b y calculation (mass/volume)Ordered By: Ivana Salcedo on 01-01-2025 Globulin (S) [Mass/Vol] 4.0 g/dL Normal [facility] Comment on above: Performed By: #### C RP, BMP, CBC, ESR #### [facility] [address] [place] [address] Serum or plasma albumin/glob ulin mass ratioOrdered By: Ivana Salcedo on 01-01-2025 Albumin/Globulin [Mass ratio] Serum or plasma albumin/globulin mass ratio [facility] Albumin/Globulin [Mass ratio] 1.1 {ratio} Normal [facility] Comment on above: Performed By: #### C RP, BMP, CBC, ESR #### [address] Serum or plasma anion gap de terminationOrdered By: Ivana Salcedo on 01-01-2025 Anion gap [Moles/Vol] Serum or plasma an ion gap determination High 6.0-15.0 [facility] Anion gap [Moles/Vol] 15.7 mmol/L High 6.0-15.0 [facility] Comment on above: Performed By: #### C RP, BMP, CBC, ESR #### [address] Sodium [Moles/volume] in Ser um or PlasmaOrdered By: Ivana Salcedo on 01-01-2025 Sodium [Moles/Vol] Sodium [Moles/volume ] in Serum or Plasma 136-145 [facility] Sodium [Moles/Vol] 137 mmol/L Normal 136-145 [facility] Comment on above: Performed By: #### C RP, BMP, CBC, ESR #### [address] Troponin I High Sensitivityo n 01-01-2025 Troponin I High Sensitivity 12 Normal 0-20 [facility] Comment on above: Result Comment: The Troponin units of report have been changed to meet the Chest Pain Accreditation requirement, element EC5.M1l2. Troponin units are changed from pg/ml to ng/L. Also, the decimal is removed and results are in whole numbers. PERFORMED BY: [place] [address] PATHOLOGIST GASTROENTEROLOGY NURSE PRACTITIONER KIM ELLIOTT M.D. Performed By: #### C RP, BMP, CBC, ESR #### [facility] [address] Troponin I.cardiac [Mass/vol ume] in Serum or Plasma by Detection limit <= 0.01 ng/Ordered By: Ivana Salcedo on 01-01-2025 Troponin I.cardiac DL <= 0.01 ng/mL [Mass/Vol] Troponin I.cardiac [Mass/volume] in Serum or Plasma by Detection limit <= 0.01 ng/ 0- [facility] Comment on above: The Troponin [...] DL <= 0.01 ng/mL [Mass/Vol] 12 ng/L [facility] Comment on above: The Troponin [...] nitrogen [Mass/volume] in Serum or Plasma High 03-30 [facility] Urea nitrogen [Mass/Vol] 69 mg/dL High 03-30 [facility] Comment on above: Performed By: #### C RP, BMP, CBC, ESR #### [facility] [address] WBC Auto (Bld) [#/Vol]Ordere d By: Ivana Salcedo on 01-01-2025 WBC (Bld) [#/Vol] Leukocytes [#/volume ] in Blood by Automated count 4.1-10.5 [facility] BLOOD UREA NITROGENon 2024 Urea nitrogen [Mass/Vol] 58 mg/dL High 5-23 [facility] Comment on above: Performed By: #### 3 094-0 #### [facility] ([id number]) [address], [address] [place] [address] Urea nitrogen [Mass/Vol] 112 mg/dL High 5-23 [facility] Comment on above: Performed By: #### 3 094-0 #### [facility] ([id number]) [address], [address] [place] [address] 36on 12-28-2024 36 Patients Nucynta was denied by Medicare. Patient calling to see what the next step is. Normal [facility] EDNURSon 12-27-2024 EDNURS Mode of arrival (squ ad #, walk in, police, etc): walk in Chief complaint(s): foot pain, back pain Arrival Note (brief scenario, treatment [employer], etc): pt with c/o neuropathy to both feet 10/10 burning. No meds taken. C/o 10/10 low back pain sharp. Had mri 2 weeks ago showing pinched nerves. Pleasant/cooperative . Pt with LAVF for HD on wed-wed-wed. Limb alert band placed Normal [facility] EDPROVon 12-27-2024 EDPROV History of Present [...] foot and back. History provided by: Patient [place] Coma Scale Score: 15 History Past Medical History: Diagnosis Date Adrenal nodule left adrenal adenoma Anemia Anxiety Charcot foot due to diabetes mellitus (CMS/HCC) Right, s/p reconstructive surgery Chronic sinusitis COVID-19 08/2023 Diabetic foot ulcers ([facility]/HCC) right Diabetic polyneuropathy (CMS/HCC) Diabetic retinopathy (CMS/HCC) [...] BP 12/27/24 0204 12/27/24 0204 12/27/24 0201 12/27/24203 36.5 ???C (97.7 ???F) 73 16 163/71 SpO2 Temp src Heart Rate Source Patient Position 12/27/24 0204 -- 12/27/24 0201 12/27/24 0201 97 % Monitor Sitting BP Location FiO2 [...] a medicine to help him. Attestion Tanvir Chakraborty MD 12/27/[address] [facility] Telephoneon 12-26-2024 Telephone [id number] Evans Forte 1970 M Date Provider Department [...] Sister Maternal Grandmother Daughter Father's Brother Alive [facility] 36on 12-22-2024 36 Contacted pt and lvm for patient. Patient has not had psych eval done yet and is scheduled for SCS trial on 01/02/25. [facility] Follow-Upon 12-21-2024 Follow-Up [id number] Evans Forte 1970 M Date Provider Department [...] Grandmother Daughter Father's Brother Alive Level of Service:92293 UT OFFICE/OUTPATIENT ESTABLISHED MOD MDM 30 MIN Reason for Visit and Comments: Follow-up [707806] - Neuropathic pain Normal [facility] Office Visiton 12-21-2024 Follow-up visit [id number] Evans Forte 1970 M Date Provider Department Center 12/21/2024 HEAVENLY CUBA [facility] ONC DCC Family History Problem Relation Age [...] Grandmother Daughter Father's Brother Alive Level of Service:02926 UT OFFICE/OUTPATIENT ESTABLISHED MOD MDM 30 MIN Reason for Visit and Comments: Follow-up [362047] - [address] [facility] Orders Onlyon 12-21-2024 Orders Only [id number] Evans Forte 1970 M Date Provider Department [...] Maternal Grandmother Daughter Father's Brother Alive Normal [facility] 36on 12-15-2024 36 TC contacted patient to follow up on status of work up. Patient states working with podiatry, no wounds at this time. Working with pain management doctor. Still working on dental clearance. Pt states still seeing ID for prior lymph node concerns. Pt has no additional concerns at this time. Melinda Hidalgo, RN [facility] 36 Please let patient k now that I ordered valium for him to take prior to his MRI. Thank you [facility] 36 Order for oral Valiu m 10mg x1 to be taken prior to MRI placed today. Patient update. [facility] 36on 12-14-2024 36 LVM to call back to reschedule his NS appt TRS [facility] MR LUMBAR SPINE WO CONTRASTo n [...] which is only partially included in the [id number]. Correlate with physical exam findings. Consider ultrasound for further evaluation. Electronically signed: Chintan Villanueva MD. Not Vldtd Invalid Interpretation Code [facility] Telephoneon 12-12-2024 Telephone [id number] Evans Forte Ac 1970 M Date Provider Department Center 12/12/2024 [...] for Visit and Comments: MRI [Other] Normal [facility] 36on 12-05-2024 36 Pt contacted clinic to be seen sooner to discuss pain medication. At the moment there is not any sooner appointment. Patient is on the cancellation list and patient also educated to contact clinic as well to ask for cancellations. Normal [facility] 36 Patient contacted clinic back and proposal writer let patient know of Dr. Cooley's response. Patient states he has increased his dose a long time ago and it is not working. Patient states he will contact his PCP to receive pain medication until he has the procedure. [facility] [address] Cooley regarding athis and he would like patient to increase dose to 20mg nightly like discussed at visit. Sales Operations Coordinator called and left message for patient with new dosing instructions. Sales Operations Coordinator also stated that medication changes are not done over the phone and any further changes will need to be discussed at an office visit. Normal [facility] 36on 12-04-2024 36 Patient contacted clinic and wanted to let you know that the medication is not working for his pain. Patient states he has been on it for two weeks. Normal [facility] Telephoneon 12-04-2024 Telephone [id number] Evans Forte 1970 M Date Provider Department Center 12/04/2024 JULIO SARKAR PAIN [facility] Family History [...] Maternal Grandmother Daughter Father's Brother Alive Normal [facility] US venous duplex LE RTon US venous duplex LE RT [facility] [place] [address] Ultrasound Report Signed Patient: Evans Forte MR#: [id number] : 1970 Acct:[id number] Age/Sex: 54 / M ADM Date: 11/27/24 Loc: ER Room: Type: [facility] ER Attending Dr: Ordering Provider: [...] Ramirez Jean M.D.11/28/2024 3:29 PM Dictation Location: [facility]- Tech: Olamide Munoz Transcribed By: CATHLEEN 11/28/24 152 Dictated By: Ramirez Jean MD 11/28/24 1528 Signed By: 11/28/24 1529 Normal [facility] Basic Metabolic Panelon 11-05 Anion gap [Moles/Vol] 17.2 mmol/L High 6.0-15.0 [facility] Comment on above: Performed By: #### C RP, BMP, CBC, ESR #### [facility] [address] Calcium [Mass/Vol] 9.1 mg/dL Normal 8.6-10.3 [facility] Comment on above: Performed By: #### C RP, BMP, CBC, ESR #### [facility] [address] Chloride [Moles/Vol] 93 mmol/L Low 98-107 [facility] Comment on above: Performed By: #### C RP, BMP, CBC, ESR #### [facility] [address] CO2 [Moles/Vol] 24.7 mmol/L Normal 21.0-31.0 [facility] Comment on above: Performed By: #### C RP, BMP, CBC, ESR #### [address] Creatinine [Mass/Vol] 6.56 mg/dL High 0.70-1.30 [facility] Comment on above: Performed By: #### C RP, BMP, CBC, ESR #### [place] [id number] [place] Creatinine Clr Calc Pharmacy 19.67 Normal [facility] Comment on above: Performed By: #### C RP, BMP, CBC, ESR #### [facility] [address] [id number] [facility] Estimated GFR 9.418 mL/Min Normal [facility] Comment on above: Performed By: #### C RP, BMP, CBC, ESR #### [place] [id number] [place] Glucose [Mass/Vol] 199 mg/dL High 70-100 [facility] Comment on above: Result Comment: [place] Glucose Reference Range is dependent on time and content of last meal. Glucose of more than 200 mg/dL in a nonstressed, ambulatory subject supports the diagnosis of Diabetes Mellitus. ADA recommended reference range Performed By: #### C RP, BMP, CBC, ESR #### [facility] [address] Potassium [Moles/Vol] 3.9 mmol/L Normal 3.5-5.1 [facility] Comment on above: Performed By: #### C RP, BMP, CBC, ESR #### [facility] [address] Sodium [Moles/Vol] 131 mmol/L Low 136-145 [facility] Comment on above: Performed By: #### C RP, BMP, CBC, ESR #### [facility] [address] Urea nitrogen [Mass/Vol] 47 mg/dL High 7-25 [facility] Comment on above: Performed By: #### C RP, BMP, CBC, ESR #### [place] [address] [place] Basophils Auto (Bld) [#/Vol] Ordered By: Venkat Burgos on 11-27-2024 Basophils (Bld) [#/Vol] Automated basophil count 0.0-0.2 [facility] Basophils/100 WBC Auto (Bld) Ordered By: Venkat Burgos on 11-27-2024 Basophils/100 WBC (Bld) Automated basophil % . [facility] C reactive protein [Mass/vol ume] in Serum or PlasmaOrdered By: Venkat Burgos on 11-27-2024 CRP [Mass/Vol] C reactive protein [Mass/volume] in Serum or Plasma High 0.0-0.5 [facility] C-Reactive Proteinon 025 C-Reactive Protein 2.8 mg/dL High 0.0-0.5 [facility] Comment on above: Result Comment: PERF ORMED BY: [place] [address] PATHOLOGIST GASTROENTEROLOGY NURSE PRACTITIONER KIM ELLIOTT M.D. Performed By: #### C RP, BMP, CBC, ESR #### [address] Calcium [Mass/volume] in Ser um or PlasmaOrdered By: Venkat Burgos on 11-27-2024 Calcium [Mass/Vol] Calcium [Mass/volume ] in Serum or Plasma 8.6-10.3 [facility] Carbon dioxide, total [Moles /volume] in Serum or PlasmaOrdered By: Venkat Burgos on 11-27-2024 CO2 [Moles/Vol] Carbon dioxide, tota l [Moles/volume] in Serum or Plasma 21.0-31.0 [facility] Chloride [Moles/volume] in S james or PlasmaOrdered By: Venkat Burgos on 11-27-2024 Chloride [Moles/Vol] Chloride [Moles/vol ume] in Serum or Plasma Low 98-107 [facility] Complete Blood Count Auto Di ffon 11-27-2024 Basophils (Bld) [#/Vol] 0.1 10*3/uL Normal 0.0-0.2 [facility] Comment on above: Performed By: #### C RP, BMP, CBC, ESR #### [place] [address] [place] Basophils/100 WBC (Bld) 1.0 % Normal . [facility] Comment on above: Performed By: #### C RP, BMP, CBC, ESR #### [facility] [address] [place] [address] [place] Eosinophils (Bld) [#/Vol] 0.6 10*3/uL High 0.0-0.45 [facility] Comment on above: Performed By: #### C RP, BMP, CBC, ESR #### [place] [address] [place] Eosinophils/100 WBC (Bld) 6.0 % Normal . [facility] Comment on above: Performed By: #### C RP, BMP, CBC, ESR #### [address] Erythrocyte distribution width (RBC) [Ratio] 15.0 % High 12.0-14.8 [facility] Comment on above: Performed By: #### C RP, BMP, CBC, ESR #### [address] Hematocrit (Bld) [Volume fraction] 35.6 % Low 38.8-50.0 [facility] Comment on above: Performed By: #### C RP, BMP, CBC, ESR #### [address] Hemoglobin (Bld) [Mass/Vol] 12.1 g/dL Low 13.0-17.0 [facility] Comment on above: Performed By: #### C RP, BMP, CBC, ESR #### [address] Lymphocytes (Bld) [#/Vol] 1.5 10*3/uL Normal 1.00-4.8 [facility] Comment on above: Performed By: #### C RP, BMP, CBC, ESR #### [address] Lymphocytes/100 WBC (Bld) 14.1 % Normal . [facility] Comment on above: Performed By: #### C RP, BMP, CBC, ESR #### [address] MCH (RBC) [Entitic mass] 30.6 pg Normal 27.5-35.2 [facility] Comment on above: Performed By: #### C RP, BMP, CBC, ESR #### [address] MCV (RBC) [Entitic vol] 90.1 fL Normal 83.5-101 [facility] Comment on above: Performed By: #### C RP, BMP, CBC, ESR #### [address] Mean Corpuscular HGB Conc 33.9 g/dL Normal 32.5-35.6 [facility] Comment on above: Performed By: #### C RP, BMP, CBC, ESR #### [address] Monocytes (Bld) [#/Vol] 1.0 10*3/uL High 0.0-0.8 [facility] Comment on above: Performed By: #### C RP, BMP, CBC, ESR #### [address] Monocytes/100 WBC (Bld) 18.22 % Normal 0.00-20.00 [facility] Comment on above: Performed By: #### C RP, BMP, CBC, ESR #### [address] Monocytes/100 WBC (Bld) 9.3 % Normal . [facility] Comment on above: Performed By: #### C RP, BMP, CBC, ESR #### [address] Neutrophils (Bld) [#/Vol] 7.4 10*3/uL Normal 1.8-7.7 [facility] Comment on above: Performed By: #### C RP, BMP, CBC, ESR #### [address] Neutrophils/100 WBC (Bld) 69.6 % Normal . [facility] Comment on above: Performed By: #### C RP, BMP, CBC, ESR #### [address] NRBC% 0.0 /100{WBC} Normal 0-0.5 [facility] Comment on above: Performed By: #### C RP, BMP, CBC, ESR #### [address] Platelet mean volume (Bld) [Entitic vol] 7.0 fL Normal 6.6-10.1 [facility] Comment on above: Performed By: #### C RP, BMP, CBC, ESR #### [place] [address] [place] Platelets (Bld) [#/Vol] 400 10*3/uL Normal 150-450 [facility] Comment on above: Performed By: #### C RP, BMP, CBC, ESR #### [address] RBC (Bld) [#/Vol] 3.95 10*6/uL Normal 3.90-5.60 [facility] Comment on above: Performed By: #### C RP, BMP, CBC, ESR #### [address] WBC (Bld) [#/Vol] 10.6 10*3/uL High 4.1-10.5 [facility] Comment on above: Performed By: #### C RP, BMP, CBC, ESR #### [address] Creatinine [Mass/volume] in Serum or PlasmaOrdered By: Venkat Burgos on 11-27-2024 Creatinine [Mass/Vol] Creatinine [Mass/volume] in Serum or Plasma High 0.70-1.30 [facility] Eosinophils Auto (Bld) [#/Vo l]Ordered By: Venkat Burgos on 11-27-2024 Eosinophils (Bld) [#/Vol] Automated eosinophil count High 0.0-0.45 [facility] Eosinophils/100 WBC Auto (Bl d)Ordered By: Venkat Burgos on 11-27-2024 Eosinophils/100 WBC (Bld) Automated eosinophil % . [facility] Erythrocyte Sedimentation Ra darrel 11-27-2024 ESR (Bld) [Velocity] 122 mm/h High 0-19 [facility] Comment on above: Result Comment: PERF ORMED BY: [address] [place] [address] PATHOLOGIST GASTROENTEROLOGY NURSE PRACTITIONER KIM ELLIOTT M.D. Performed By: #### C RP, BMP, CBC, ESR #### [address] Erythrocyte distribution wid th Auto (RBC) [Ratio]Ordered By: Venkat Burgos on 11-27-2024 Erythrocyte distribution width (RBC) [Ratio] Erythrocyte distribution width [Ratio] by Automated count High 12.0-14.8 [facility] Erythrocyte sedimentation ra te by Photometric methodOrdered By: Venkat Burgos on 11-27-2024 ESR Photometric method (Bld) [Velocity] Erythrocyte sedimentation rate by Photometric method High 0-19 [facility] Glucose [Mass/volume] in Ser um or PlasmaOrdered By: Venkat Burgos on 11-27-2024 Glucose [Mass/Vol] Glucose [Mass/volume ] in Serum or Plasma High 70-100 [facility] Comment on above: ADA recommended [...] of Blood by Automated count Low 38.8-50.0 [facility] Hemoglobin [Mass/volume] in BloodOrdered By: Venkat Burgos on 11-27-2024 Hemoglobin (Bld) [Mass/Vol] Hemoglobin [Mass/volume] in Blood Low 13.0-17.0 [facility] Leukocytes [#/volume] correc scott for nucleated erythrocytes in Blood by Automated counOrdered By: Venkat Burgos on 11-27-2024 WBC corrected for nucl RBC Auto (Bld) [#/Vol] Leukocytes [#/volume] corrected for nucleated erythrocytes in Blood by Automated coun High 4.1-10.5 [facility] Lymphocytes Auto (Bld) [#/Vo l]Ordered By: Venkat Burgos on 11-27-2024 Lymphocytes (Bld) [#/Vol] Lymphocytes [#/volume] in Blood by Automated count 1.00-4.8 [facility] Lymphocytes/100 WBC Auto (Bl d)Ordered By: Venkat Burgos on 11-27-2024 Lymphocytes/100 WBC (Bld) Lymphocytes/100 leukocytes in Blood by Automated count . [facility] MCH Auto (RBC) [Entitic mass ]Ordered By: Venkat Burgos on 11-27-2024 MCH (RBC) [Entitic mass] MCH [Entitic mass] by Automated count 27.5-35.2 [facility] MCHC Auto (RBC) [Mass/Vol]Or dered By: Venkat Burgos on 11-27-2024 MCHC (RBC) [Mass/Vol] MCHC [Mass/volume] by Automated count 32.5-35.6 [facility] MCV Auto (RBC) [Entitic vol] Ordered By: Venkat Burgos on 11-27-2024 MCV (RBC) [Entitic vol] MCV [Entitic volume] by Automated count 83.5-101 [facility] Monocyte distribution width [Entitic volume] in Blood by AutomatedOrdered By: Venkat Burgos on 11-27-2024 Monocyte distribution width Auto (Bld) [Entitic vol] Monocyte distribution width [Entitic volume] in Blood by Automated 0.00-20.00 [facility] Monocytes Auto (Bld) [#/Vol] Ordered By: Venkat Burgos on 11-27-2024 Monocytes (Bld) [#/Vol] Automated blood monocyte count High 0.0-0.8 [facility] Monocytes/100 WBC Auto (Bld) Ordered By: Venkat Burgos on 11-27-2024 Monocytes/100 WBC (Bld) Automated monocyte % . [facility] Neutrophils Auto (Bld) [#/Vo l]Ordered By: Venkat Burgos on 11-27-2024 Neutrophils (Bld) [#/Vol] Neutrophils [#/volume] in Blood by Automated count 1.8-7.7 [facility] Neutrophils/100 WBC Auto (Bl d)Ordered By: Venkat Burgos on 11-27-2024 Neutrophils/100 WBC (Bld) Automated neutrophil % . [facility] No Panel InformationOrdered By: Veknat Burgos on 11-27-2024 Estimated GFR (CKD-EPI) 9.418 mL/Min [facility] Creatinine Clearance (Chem 19.67 [facility] Nucleated erythrocytes [Pres ence] in Blood by Automated countOrdered By: Venkat Burgos on 11-27-2024 Nucleated RBC Auto Ql (Bld) Nucleated erythrocytes [Presence] in Blood by Automated count 0-0.5 [facility] Platelet mean volume Auto (B ld) [Entitic vol]Ordered By: Venkat Burgos on 11-27-2024 Platelet mean volume (Bld) [Entitic vol] Platelet mean volume [Entitic volume] in Blood by Automated count 6.6-10.1 [facility] Platelets Auto (Bld) [#/Vol] Ordered By: Venkat Burgos on 11-27-2024 Platelets (Bld) [#/Vol] Platelets [#/volume] in Blood by Automated count 150-450 [facility] Potassium [Moles/volume] in Serum or PlasmaOrdered By: Venkat Burgos on 11-27-2024 Potassium [Moles/Vol] Potassium [Moles/volume] in Serum or Plasma 3.5-5.1 [facility] RBC Auto (Bld) [#/Vol]Ordere d By: Venkat Burgos on 11-27-2024 RBC (Bld) [#/Vol] Erythrocytes [#/volu me] in Blood by Automated count 3.90-5.60 [facility] Serum or plasma anion gap de terminationOrdered By: Venkat Burgos on 11-27-2024 Anion gap [Moles/Vol] Serum or plasma an ion gap determination High 6.0-15.0 [facility] Sodium [Moles/volume] in Ser um or PlasmaOrdered By: Venkat Burgos on 11-27-2024 Sodium [Moles/Vol] Sodium [Moles/volume ] in Serum or Plasma Low 136-145 [facility] Urea nitrogen [Mass/volume] in Serum or PlasmaOrdered By: Venkat Burgos on 11-27-2024 Urea nitrogen [Mass/Vol] Urea nitrogen [Mass/volume] in Serum or Plasma High 7-25 [facility] WBC Auto (Bld) [#/Vol]Ordere d By: Venkat Burgos on 11-27-2024 WBC (Bld) [#/Vol] Leukocytes [#/volume ] in Blood by Automated count High 4.1-10.5 [facility] Office Visiton 11-23-2024 Follow-up visit [id number] Evans Forte 1970 Date Provider Department Center 11/23/2024 CHONG WARREN [facility] Family [...] Grandmother Daughter Father's Brother Alive Level of Service:77531 [place] OFFICE/OUTPATIENT NEW MODERATE MDM 45 MINUTES (GC) Reason for Visit and Comments: New Patient [632] - Neuropathy [facility] Telemedicineon 11-07-2024 Telemedicine [id number] Evans Forte 1970 M Date Provider Department Center 11/07/2024 FAUSTINO GUZMÁN [facility] Family History Problem Relation [...] Grandmother Daughter Father's Brother Alive Level of Service:40003 [place] OFFICE/OUTPATIENT ESTABLISHED SF MDM 10 MIN (95) [facility] Follow-Upon 10-31-2024 Follow-Up [id number] Jama 1970 M Date Provider Department Center [...] Grandmother Daughter Father's Brother Alive Level of Service:03873 [place] OFFICE/OUTPATIENT ESTABLISHED MOD MDM [address] [facility] Alanine aminotransferase [En zymatic activity/volume] in Serum or PlasmaOrdered By: Will Cerna on 10-29-2024 ALT [Catalytic activity/Vol] Alanine aminotransferase [Enzymatic activity/volume] in Serum or Plasma 7-52 [facility] Albumin [Mass/volume] in Ser um or Plasma by Bromocresol green (BCG) dye binding methoOrdered By: Will Cerna on 10-29-2024 Albumin BCG dye [Mass/Vol] Albumin [Mass/volume] in Serum or Plasma by Bromocresol green (BCG) dye binding metho 3.5-5.7 [facility] Alkaline phosphatase [Enzyma tic activity/volume] in Serum or PlasmaOrdered By: Will Cerna on 10-29-2024 ALP [Catalytic activity/Vol] Alkaline phosphatase [Enzymatic activity/volume] in Serum or Plasma 34-104 [facility] Aspartate aminotransferase [ Enzymatic activity/volume] in Serum or PlasmaOrdered By: Will Cerna on 10-29-2024 AST [Catalytic activity/Vol] Aspartate aminotransferase [Enzymatic activity/volume] in Serum or Plasma Low 13-39 [facility] Basophils Auto (Bld) [#/Vol] Ordered By: Will Cerna on 10-29-2024 Basophils (Bld) [#/Vol] Automated basophil count 0.0-0.2 [facility] Basophils/100 WBC Auto (Bld) Ordered By: Will Cerna on 10-29-2024 Basophils/100 WBC (Bld) Automated basophil % . [facility] Bilirubin.total [Mass/volume ] in Serum or PlasmaOrdered By: Will Cerna on 10-29-2024 Bilirubin [Mass/Vol] Bilirubin.total [Mass/volume] in Serum or Plasma 0.3-1.0 [facility] Blood Cultureon 10-29-2024 Bacteria identified Cx Nom (Bld) NO GROWTH 5 DAYS PERFORMED BY: [place] [address] PATHOLOGIST GASTROENTEROLOGY NURSE PRACTITIONER KIM ELLIOTT M.D. Normal [facility] Comment on above: Performed By: #### C RP, BMP, CBC, ESR #### [address] Bacteria identified Cx Nom (Bld) NO GROWTH 5 DAYS PERFORMED BY: [place] [id number] PATHOLOGIST GASTROENTEROLOGY NURSE PRACTITIONER KIM ELLIOTT M.D. Normal [facility] Comment on above: Performed By: #### C RP, BMP, CBC, ESR #### [facility] [address] [place] [id number] [place] C reactive protein [Mass/vol ume] in Serum or PlasmaOrdered By: Will Cerna on 10-29-2024 CRP [Mass/Vol] C reactive protein [Mass/volume] in Serum or Plasma High 0.0-0.5 [facility] C-Reactive Proteinon 025 C-Reactive Protein 1.5 mg/dL High 0.0-0.5 [facility] Comment on above: Result Comment: PERF ORMED BY: [place] [address] PATHOLOGIST GASTROENTEROLOGY NURSE PRACTITIONER KIM ELLIOTT M.D. Performed By: #### C RP, CMP, CBC, ESR, LACTIC #### [facility] [address] [place] [id number] [place] Calcium [Mass/volume] in Ser um or PlasmaOrdered By: Will Cerna on 10-29-2024 Calcium [Mass/Vol] Calcium [Mass/volume ] in Serum or Plasma 8.6-10.3 [facility] Carbon dioxide, total [Moles /volume] in Serum or PlasmaOrdered By: Will Cerna on 10-29-2024 CO2 [Moles/Vol] Carbon dioxide, tota l [Moles/volume] in Serum or Plasma 21.0-31.0 [facility] Chloride [Moles/volume] in S james or PlasmaOrdered By: Will Cerna on 10-29-2024 Chloride [Moles/Vol] Chloride [Moles/vol ume] in Serum or Plasma 98-107 [facility] Complete Blood Count Auto Di ffon 10-29-2024 Basophils (Bld) [#/Vol] 0.1 10*3/uL Normal 0.0-0.2 [facility] Comment on above: Performed By: #### C RP, CMP, CBC, ESR, LACTIC #### [address] Basophils/100 WBC (Bld) 1.1 % Normal . [facility] Comment on above: Performed By: #### C RP, CMP, CBC, ESR, LACTIC #### [address] Eosinophils (Bld) [#/Vol] 0.3 10*3/uL Normal 0.0-0.45 [facility] Comment on above: Performed By: #### C RP, CMP, CBC, ESR, LACTIC #### [address] Eosinophils/100 WBC (Bld) 3.4 % Normal . [facility] Comment on above: Performed By: #### C RP, CMP, CBC, ESR, LACTIC #### [address] Erythrocyte distribution width (RBC) [Ratio] 14.3 % Normal 12.0-14.8 [facility] Comment on above: Performed By: #### C RP, CMP, CBC, ESR, LACTIC #### [address] Hematocrit (Bld) [Volume fraction] 35.5 % Low 38.8-50.0 [facility] Comment on above: Performed By: #### C RP, CMP, CBC, ESR, LACTIC #### [address] Hemoglobin (Bld) [Mass/Vol] 12.1 g/dL Low 13.0-17.0 [facility] Comment on above: Performed By: #### C RP, CMP, CBC, ESR, LACTIC #### [address] Lymphocytes (Bld) [#/Vol] 1.4 10*3/uL Normal 1.00-4.8 [facility] Comment on above: Performed By: #### C RP, CMP, CBC, ESR, LACTIC #### [address] Lymphocytes/100 WBC (Bld) 14.2 % Normal . [facility] Comment on above: Performed By: #### C RP, CMP, CBC, ESR, LACTIC #### [address] MCH (RBC) [Entitic mass] 31.2 pg Normal 27.5-35.2 [facility] Comment on above: Performed By: #### C RP, CMP, CBC, ESR, LACTIC #### [address] MCV (RBC) [Entitic vol] 91.2 fL Normal 83.5-101 [facility] Comment on above: Performed By: #### C RP, CMP, CBC, ESR, LACTIC #### [address] Mean Corpuscular HGB Conc 34.2 g/dL Normal 32.5-35.6 [facility] Comment on above: Performed By: #### C RP, CMP, CBC, ESR, LACTIC #### [address] Monocytes (Bld) [#/Vol] 0.7 10*3/uL Normal 0.0-0.8 [facility] Comment on above: Performed By: #### C RP, CMP, CBC, ESR, LACTIC #### [address] Monocytes/100 WBC (Bld) 13.40 % Normal 0.00-20.00 [facility] Comment on above: Performed By: #### C RP, CMP, CBC, ESR, LACTIC #### [address] Monocytes/100 WBC (Bld) 6.8 % Normal . [facility] Comment on above: Performed By: #### C RP, CMP, CBC, ESR, LACTIC #### [address] Neutrophils (Bld) [#/Vol] 7.5 10*3/uL Normal 1.8-7.7 [facility] Comment on above: Performed By: #### C RP, CMP, CBC, ESR, LACTIC #### [address] Neutrophils/100 WBC (Bld) 74.5 % Normal . [facility] Comment on above: Performed By: #### C RP, CMP, CBC, ESR, LACTIC #### [address] NRBC% 0.0 /100{WBC} Normal 0-0.5 [facility] Comment on above: Performed By: #### C RP, CMP, CBC, ESR, LACTIC #### [address] Platelet mean volume (Bld) [Entitic vol] 6.7 fL Normal 6.6-10.1 [facility] Comment on above: Performed By: #### C RP, CMP, CBC, ESR, LACTIC #### [address] Platelets (Bld) [#/Vol] 368 10*3/uL Normal 150-450 [facility] Comment on above: Performed By: #### C RP, CMP, CBC, ESR, LACTIC #### [address] RBC (Bld) [#/Vol] 3.89 10*6/uL Low 3.90-5.60 [facility] Comment on above: Performed By: #### C RP, CMP, CBC, ESR, LACTIC #### [address] WBC (Bld) [#/Vol] 10.1 10*3/uL Normal 4.1-10.5 [facility] Comment on above: Performed By: #### C RP, CMP, CBC, ESR, LACTIC #### [address] Comprehensive Metabolic Pane nick 10-29-2024 Albumin [Mass/Vol] 4.3 g/dL Normal 3.5-5.7 [facility] Comment on above: Performed By: #### C RP, CMP, CBC, ESR, LACTIC #### [address] Albumin/Globulin [Mass ratio] 1.1 {ratio} Normal [facility] Comment on above: Performed By: #### C RP, CMP, CBC, ESR, LACTIC #### [address] ALP [Catalytic activity/Vol] 90 U/L Normal 34-104 [facility] Comment on above: Performed By: #### C RP, CMP, CBC, ESR, LACTIC #### [address] ALT [Catalytic activity/Vol] 11 U/L Normal 7-52 [facility] Comment on above: Performed By: #### C RP, CMP, CBC, ESR, LACTIC #### [address] Anion gap [Moles/Vol] 16.6 mmol/L High 6.0-15.0 [facility] Comment on above: Performed By: #### C RP, CMP, CBC, ESR, LACTIC #### [address] AST [Catalytic activity/Vol] 7 U/L Low 13-39 [facility] Comment on above: Performed By: #### C RP, CMP, CBC, ESR, LACTIC #### [address] Bilirubin [Mass/Vol] 0.4 mg/dL Normal 0.3-1.0 [facility] Comment on above: Performed By: #### C RP, CMP, CBC, ESR, LACTIC #### [address] Calcium [Mass/Vol] 9.4 mg/dL Normal 8.6-10.3 [facility] Comment on above: Performed By: #### C RP, CMP, CBC, ESR, LACTIC #### [address] Chloride [Moles/Vol] 100 mmol/L Normal 98-107 [facility] Comment on above: Performed By: #### C RP, CMP, CBC, ESR, LACTIC #### [facility] [address] CO2 [Moles/Vol] 25.8 mmol/L Normal 21.0-31.0 [facility] Comment on above: Performed By: #### C RP, CMP, CBC, ESR, LACTIC #### [facility] [address] Creatinine [Mass/Vol] 9.58 mg/dL High 0.70-1.30 [facility] Comment on above: Performed By: #### C RP, CMP, CBC, ESR, LACTIC #### [facility] [address] Creatinine Clr Calc Pharmacy 13.36 Normal [facility] Comment on above: Performed By: #### C RP, CMP, CBC, ESR, LACTIC #### [facility] [address] Estimated GFR 5.978 mL/Min Normal [facility] Comment on above: Performed By: #### C RP, CMP, CBC, ESR, LACTIC #### [facility] [address] Globulin (S) [Mass/Vol] 3.9 g/dL Normal [facility] Comment on above: Performed By: #### C RP, CMP, CBC, ESR, LACTIC #### [facility] [address] Glucose [Mass/Vol] 259 mg/dL High 70-100 [facility] Comment on above: Result Comment: [place] Glucose Reference Range is dependent on time and content of last meal. Glucose of more than 200 mg/dL in a nonstressed, ambulatory subject supports the diagnosis of Diabetes Mellitus. ADA recommended reference range Performed By: #### C RP, CMP, CBC, ESR, LACTIC #### [facility] [address] Potassium [Moles/Vol] 4.4 mmol/L Normal 3.5-5.1 [facility] Comment on above: Performed By: #### C RP, CMP, CBC, ESR, LACTIC #### [facility] [address] Protein [Mass/Vol] 8.2 g/dL Normal 6.4-8.9 [facility] Comment on above: Performed By: #### C RP, CMP, CBC, ESR, LACTIC #### [facility] [address] [place] [id number] [facility] Sodium [Moles/Vol] 138 mmol/L Normal 136-145 [facility] Comment on above: Performed By: #### C RP, CMP, CBC, ESR, LACTIC #### [facility] [address] Urea nitrogen [Mass/Vol] 78 mg/dL High 7-25 [facility] Comment on above: Performed By: #### C RP, CMP, CBC, ESR, LACTIC #### [address] Creatinine [Mass/volume] in Serum or PlasmaOrdered By: Will Cerna on 10-29-2024 Creatinine [Mass/Vol] Creatinine [Mass/volume] in Serum or Plasma High 0.70-1.30 [facility] ECG 12 lead ECGon 10-29-2024 ECG 12 lead ECG [facility] [place] [address] [place] [address] Electrocardiograph Report Signed Patient: Evans Forte MR#: [id number] : 1970 Acct:[id number] Age/Sex: 54 / M ADM Date: 10/29/24 Loc: Room: [address] [place] [address] Type: ADM IN Attending Dr: Maxime Magana [...] was found Confirmed by UDAY SALGADO DO ([id number]) on 10/30/2024 1:34:21 AM Referred By: Electronically Signed By: UDAY SALGADO DO Transcribed By: MUS Signed By Uday Salgado DO 10/30 0134 Normal [facility] Eosinophils Auto (Bld) [#/Vo l]Ordered By: Will Cerna on 10-29-2024 Eosinophils (Bld) [#/Vol] Automated eosinophil count 0.0-0.45 [facility] Eosinophils/100 WBC Auto (Bl d)Ordered By: Will Cerna on 10-29-2024 Eosinophils/100 WBC (Bld) Automated eosinophil % . [facility] Erythrocyte Sedimentation Ra darrel 10-29-2024 ESR (Bld) [Velocity] 74 mm/h High 0-19 [facility] Comment on above: Result Comment: PERF ORMED BY: [place] [address] PATHOLOGIST GASTROENTEROLOGY NURSE PRACTITIONER KIM ELLIOTT M.D. Performed By: #### C RP, CMP, CBC, ESR, LACTIC #### [address] Erythrocyte distribution wid th Auto (RBC) [Ratio]Ordered By: Will Cerna on 10-29-2024 Erythrocyte distribution width (RBC) [Ratio] Erythrocyte distribution width [Ratio] by Automated count 12.0-14.8 [facility] Erythrocyte sedimentation ra te by Photometric methodOrdered By: Will Cerna on 10-29-2024 ESR Photometric method (Bld) [Velocity] Erythrocyte sedimentation rate by Photometric method High 0-19 [facility] Globulin Calc (S) [Mass/Vol] Ordered By: Will Cerna on 10-29-2024 Globulin (S) [Mass/Vol] Serum globulin measurement by calculation (mass/volume) [facility] Glucose Glucometer (BldC) [M ass/Vol]Ordered By: Maxime Magana on 10-29-2024 Glucose [Mass/Vol] Capillary blood gluc ose measurement by glucometer (mass/volume) [facility] Comment on above: Random Glucose Refer ence Range is dependent on time and content of last meal. Glucose of more than 200 mg/dL in a nonstressed, ambulatory subject supports the diagnosis of Diabetes Mellitus. Glucose Poct Glucometerson 0 10-29-2024 Glucose [Mass/Vol] 244 mg/dL Normal [facility] Comment on above: Result Comment: [place] om Glucose Reference Range is dependent on time and content of last meal. Glucose of more than 200 mg/dL in a nonstressed, ambulatory subject supports the diagnosis of Diabetes Mellitus. PERFORMED BY: [place] [address] PATHOLOGIST GASTROENTEROLOGY NURSE PRACTITIONER KIM ELLIOTT M.D. Performed By: #### C RP, BMP, CBC, ESR #### [address] Glucose [Mass/volume] in Ser um or PlasmaOrdered By: Will Cerna on 10-29-2024 Glucose [Mass/Vol] Glucose [Mass/volume ] in Serum or Plasma High 70-100 [facility] Comment on above: ADA recommended [...] of Blood by Automated count Low 38.8-50.0 [facility] Hemoglobin [Mass/volume] in BloodOrdered By: Will Cerna on 10-29-2024 Hemoglobin (Bld) [Mass/Vol] Hemoglobin [Mass/volume] in Blood Low 13.0-17.0 [facility] Laboratory - Microbiology an d Antimicrobial susceptibilityOrdered By: Will Cerna on 10-29-2024 Bacteria identified Cx Nom (Bld) NO GROWTH 5 DAYS [facility] Bacteria identified Cx Nom (Bld) NO GROWTH 5 DAYS [facility] Lactate [Moles/volume] in Se rum or PlasmaOrdered By: Will Cerna on 10-29-2024 Lactate [Moles/Vol] Lactate [Moles/volum e] in Serum or Plasma 0.5-1.9 [facility] Comment on above: Lactic Acid referenc e range has been updated to 0.5 1.9 mmol/L and the critical range of 2.0 or greater. Lactic Acidon 10-29-2024 Lactate [Moles/Vol] 1.0 mmol/L Normal 0.5-1.9 [facility] Comment on above: Result Comment: Lact ic Acid reference range has been updated to 0.5 ? 1.9 mmol/L and the critical range of 2.0 or greater. PERFORMED BY: [place] [address] PATHOLOGIST GASTROENTEROLOGY NURSE PRACTITIONER KIM ELLIOTT M.D. Performed By: #### C RP, CMP, CBC, ESR, LACTIC #### [address] Leukocytes [#/volume] correc scott for nucleated erythrocytes in Blood by Automated counOrdered By: Will Cerna on 10-29-2024 WBC corrected for nucl RBC Auto (Bld) [#/Vol] Leukocytes [#/volume] corrected for nucleated erythrocytes in Blood by Automated coun 4.1-10.5 [facility] Lymphocytes Auto (Bld) [#/Vo l]Ordered By: Will Cerna on 10-29-2024 Lymphocytes (Bld) [#/Vol] Lymphocytes [#/volume] in Blood by Automated count 1.00-4.8 [facility] Lymphocytes/100 WBC Auto (Bl d)Ordered By: Will Cerna on 10-29-2024 Lymphocytes/100 WBC (Bld) Lymphocytes/100 leukocytes in Blood by Automated count . [facility] MCH Auto (RBC) [Entitic mass ]Ordered By: Will Cerna on 10-29-2024 MCH (RBC) [Entitic mass] MCH [Entitic mass] by Automated count 27.5-35.2 [facility] MCHC Auto (RBC) [Mass/Vol]Or dered By: Will Cerna on 10-29-2024 MCHC (RBC) [Mass/Vol] MCHC [Mass/volume] by Automated count 32.5-35.6 [facility] MCV Auto (RBC) [Entitic vol] Ordered By: Will Cerna on 10-29-2024 MCV (RBC) [Entitic vol] MCV [Entitic volume] by Automated count 83.5-101 [facility] Monocyte distribution width [Entitic volume] in Blood by AutomatedOrdered By: Will Cerna on 10-29-2024 Monocyte distribution width Auto (Bld) [Entitic vol] Monocyte distribution width [Entitic volume] in Blood by Automated 0.00-20.00 [facility] Monocytes Auto (Bld) [#/Vol] Ordered By: Will Cerna on 10-29-2024 Monocytes (Bld) [#/Vol] Automated blood monocyte count 0.0-0.8 [facility] Monocytes/100 WBC Auto (Bld) Ordered By: Will Cerna on 10-29-2024 Monocytes/100 WBC (Bld) Automated monocyte % . [facility] Neutrophils Auto (Bld) [#/Vo l]Ordered By: Will Cerna on 10-29-2024 Neutrophils (Bld) [#/Vol] Neutrophils [#/volume] in Blood by Automated count 1.8-7.7 [facility] Neutrophils/100 WBC Auto (Bl d)Ordered By: Will Cerna on 10-29-2024 Neutrophils/100 WBC (Bld) Automated neutrophil % . [facility] No Panel InformationOrdered By: Will Cerna on 10-29-2024 Estimated GFR (CKD-EPI) 5.978 mL/Min [facility] Creatinine Clearance (Chem 13.36 [facility] Nucleated erythrocytes [Pres ence] in Blood by Automated countOrdered By: Will Cerna on 10-29-2024 Nucleated RBC Auto Ql (Bld) Nucleated erythrocytes [Presence] in Blood by Automated count 0-0.5 [facility] Platelet mean volume Auto (B ld) [Entitic vol]Ordered By: Will Cerna on 10-29-2024 Platelet mean volume (Bld) [Entitic vol] Platelet mean volume [Entitic volume] in Blood by Automated count 6.6-10.1 [facility] Platelets Auto (Bld) [#/Vol] Ordered By: Will Cerna on 10-29-2024 Platelets (Bld) [#/Vol] Platelets [#/volume] in Blood by Automated count 150-450 [facility] Potassium [Moles/volume] in Serum or PlasmaOrdered By: Will Cerna on 10-29-2024 Potassium [Moles/Vol] Potassium [Moles/volume] in Serum or Plasma 3.5-5.1 [facility] Protein [Mass/volume] in Ser um or PlasmaOrdered By: Will Cerna on 10-29-2024 Protein [Mass/Vol] Protein [Mass/volume ] in Serum or Plasma 6.4-8.9 [facility] RBC Auto (Bld) [#/Vol]Ordere d By: Will Cerna on 10-29-2024 RBC (Bld) [#/Vol] Erythrocytes [#/volu me] in Blood by Automated count Low 3.90-5.60 [facility] Serum or plasma albumin/glob ulin mass ratioOrdered By: Will Cerna on 10-29-2024 Albumin/Globulin [Mass ratio] Serum or plasma albumin/globulin mass ratio [facility] Serum or plasma anion gap de terminationOrdered By: Will Cerna on 10-29-2024 Anion gap [Moles/Vol] Serum or plasma an ion gap determination High 6.0-15.0 [facility] Sodium [Moles/volume] in Ser um or PlasmaOrdered By: Will Cerna on 10-29-2024 Sodium [Moles/Vol] Sodium [Moles/volume ] in Serum or Plasma 136-145 [facility] Urea nitrogen [Mass/volume] in Serum or PlasmaOrdered By: Will Cerna on 10-29-2024 Urea nitrogen [Mass/Vol] Urea nitrogen [Mass/volume] in Serum or Plasma High 7-25 [facility] WBC Auto (Bld) [#/Vol]Ordere d By: Will Cerna on 10-29-2024 WBC (Bld) [#/Vol] Leukocytes [#/volume ] in Blood by Automated count 4.1-10.5 [facility] X-ray reportOrdered By: Rony Saeed on 10-29-2024 Study report [facility] [place] [address] XRay Report Signed Patient: JannEvans Ac MR#: [id number] : 1970 Acct:[id number] Age/Sex: 54 / M ADM Date: 5 Loc: ER Room: Type: [facility] ER Attending Dr: Copies to: [...] Derrick Saeed M.D.10/29/2024 6:14 PM Dictation Location: [place] [address] Transcribed By: [facility] 10/29/241813 Dictated By: Derrick Saeed MD 10/29/241810 Signed By: 10/29/241813 [facility] Work Phone: XR foot RT min 3V*on 025 XR foot RT min 3V* [facility] [place] [address] XRay Report Signed Patient: Evans Forte MR#: [id number] : 1970 Acct:[id number] Age/Sex: 54 / M ADM Date: 10/29/24 Loc: ER Room: Type: [facility] ER Attending Dr: Copies to: [...] Derrick Saeed M.D.10/29/2024 6:14 PM Dictation Location: [facility]--29 Transcribed By: [facility] 10/29/241813 Dictated By: Derrick Saeed MD 10/29/241810 Signed By: 10/29/241813 Normal [facility] 29on 10-17-2024 29 Addended by: MARI HARE on: 10/24/2024 03:37 PM Modules accepted: Orders Normal [facility] BARTONELLA HENSELAE ANTIBODY PANELon 10-17-2024 BARTONELLA HENSELAE IGG <1:64 Normal [facility] Comment on above: Result Comment: INTE [...] developed and its performance characteristics determined by [facility]. It has not been cleared or approved by the [place] Food and Drug Administration. This test was performed in a CLIA certified laboratory and is intended for clinical purposes. Performed By: #### L [id number] ####[facility] ([address] [address] BARTONELLA HENSELAE IGM < 1:16 Normal [facility] Comment on above: Result Comment: INTE [...] developed and its performance characteristics determined by [employer]. It has not been cleared or approved by the [place] Food and Drug Administration. This test was performed in a CLIA certified laboratory and is intended for clinical purposes. Performed By: [facility] [address] [place] [address] Dry Cleaning Attendant: Aristeo Salgado MD, PhD CLIA Number: [id number] Performed By: #### L [id number] ####[facility] (BEAKER)[address] [place] [address] CHLAMYDIA TRACHOMATIS AND NE ISSERIA GONORRHEA, TMAon 10-17-2024 CHLAMYDIA TRACHOMATIS DNA PROBE (PRESENCE) IN UNSP SPEC Negative Normal Negative [facility] Comment on above: Result Comment: No C hlamydia trachomatis rRNA Detected. The Aptima Combo 2 Assay is a FDA approved target amplification nucleic acid probe test that utilizes target capture for the in vitro qualitative detection and differentiation of ribosomal RNA (rRNA) from Chlamydia trachomatis (CT) and/or Neisseria gonorrhoeae (GC) to aid the diagnosis of chlamydial and/or gonococcal urogenital disease using the Nephi System. The Aptima Combo 2 Assay involves target capture, target amplification by Space Control Agent-Mediated Amplification (TMA), and the detection of the amplification products (amplicon) by the Hybridization Protection Assay (HPA). The internal process controls of the Nephi System monitor the target capture, amplification, and detection steps of the assay, this is not intended to control for sampling adequacy. Performed By: #### L [id number] ####[facility] (BEAKER)[address] [place] [address] NEISSERIA GONORRHOEAE DNA PROBE (PRESENCE) IN UNSP SPEC Negative Normal Negative [facility] Comment on above: Result Comment: No N eisseria gonorrhoeae rRNA Detected. The Aptima Combo 2 Assay is a FDA approved target amplification nucleic acid probe test that utilizes target capture for the in vitro qualitative detection and differentiation of ribosomal RNA (rRNA) from Chlamydia trachomatis (CT) and/or Neisseria gonorrhoeae (GC) to aid the diagnosis of chlamydial and/or gonococcal urogenital disease using the Nephi System. The Aptima Combo 2 Assay involves target capture, target amplification by Space Control Agent-Mediated Amplification (TMA), and the detection of the amplification products (amplicon) by the Hybridization Protection Assay (HPA). The internal process controls of the Nephi System monitor the target capture, amplification, and detection steps of the assay, this is not intended to control for sampling adequacy. Performed By: #### L [id number] ####[facility] (SASHA)[address] [place] [address] HISTOPLASMA ANTIGEN, URINEon 10-17-2024 HISTOPLASMA ANTIGEN URINE INTERP Not detected Normal Not Detected [facility] Comment on above: Result Comment: INTE [...] developed and its performance characteristics determined by [employer]. It has not been cleared or approved by the U.S. Food and Drug Administration. This test was performed in a CLIA-certified laboratory and is intended for clinical purposes. Performed By: [facility] [address] [place] [address] Dry Cleaning Attendant: Aristeo Salgado MD, PhD CLIA Number: [id number] Performed By: #### L [id number] #### [facility] (BEAKER) [address] [place] [address] HISTOPLASMA ANTIGEN URINE QUANT Not detected Normal [facility] Comment on above: Performed By: #### L [id number] #### [facility] (BEAKER) [address] [place] [address] HIV COMBO 4Gon 10-17-2024 HIV COMBO 4G Negative Normal Negative [facility] Comment on above: Performed By: #### L [id number] #### [facility] (BEAKER) [address] [facility] [place] [address] Office Visiton 10-17-2024 Follow-up visit [id number] Evans Forte 1970 M Date Provider Department [...] Grandmother Daughter Father's Brother Alive Level of Service:53266 [place] OFFICE/OUTPATIENT NEW MODERATE MDM 45 MINUTES Normal [facility] Follow-up visit [id number] Evans Forte 1970 M Date Provider Department Center 10/17/2024 FAUSTINO GUZMÁN [facility] Family History Problem Relation [...] Grandmother Daughter Father's Brother Alive Level of Service:13359 UT OFFICE/OUTPATIENT ESTABLISHED LOW MDM 20 MIN Normal [facility] Orders Onlyon 10-17-2024 Orders Only [id number] Evans Forte 1970 M Date Provider Department Center 10/17/2024 MARIE LOZA [facility] D[facility] Family History Problem Relation [...] Maternal Grandmother Daughter Father's Brother Alive Normal [facility] RPRon 10-17-2024 REAGIN AB PRESENCE IN SERUM BY RPR Non-Reactive Normal Nonreactive [facility] Comment on above: Performed By: #### L [id number] #### [facility] ([place]) [address] [place] [address] Provider Orderson 09-25-2024 Provider Orders [id number] [facility] Orders Onlyon 09-14-2024 Orders Only [id number] Evans Forte 1970 Provider Department Center 09/14/2024 FAUSTINO GUZMÁN [facility] Family History Problem Relation [...] Maternal Grandmother Daughter Father's Brother Alive Normal [facility] Office Visiton 09-05-2024 Follow-up visit [id number] Evans Forte 1970 Provider Department Center 09/05/2024 ERICK MATOS [facility] [place] Family History Problem Relation Age of Onset [...] Grandmother Daughter Father's Brother Alive Level of Service:30549 [place] OFFICE/OUTPATIENT ESTABLISHED [facility] 10 MIN Reason for Visit and Comments: Post-op [483] - Evans is here today for post op visit: enlarged lymph node, s/p 08/22/24 excisional lymph node biopsy Normal [facility] Basic Metabolic Panelon 12-2 Anion gap [Moles/Vol] 19.7 mmol/L High 6.0-15.0 [facility] Comment on above: Performed By: #### C RP, BMP, CBC, ESR #### [facility] [address] Calcium [Mass/Vol] 9.6 mg/dL Normal 8.6-10.3 [facility] Comment on above: Performed By: #### C RP, BMP, CBC, ESR #### [facility] [address] [place] [address] [place] Chloride [Moles/Vol] 98 mmol/L Normal 98-107 [facility] Comment on above: Performed By: #### C RP, BMP, CBC, ESR #### [facility] [address] CO2 [Moles/Vol] 26.6 mmol/L Normal 21.0-31.0 [facility] Comment on above: Performed By: #### C RP, BMP, CBC, ESR #### [facility] [address] [place] [address] [place] Creatinine [Mass/Vol] 5.94 mg/dL High 0.70-1.30 [facility] Comment on above: Performed By: #### C RP, BMP, CBC, ESR #### [facility] [address] [place] [address] [place] Creatinine Clr Calc Pharmacy 21.80 Normal [facility] Comment on above: Result Comment: PERF ORMED BY: [place] [address] PATHOLOGIST GASTROENTEROLOGY NURSE PRACTITIONER KIM ELLIOTT M.D. Performed By: #### C RP, BMP, CBC, ESR #### [facility] [address] Estimated GFR 10.609 mL/Min Normal [facility] Comment on above: Performed By: #### C RP, BMP, CBC, ESR #### [facility] [address] Glucose [Mass/Vol] 135 mg/dL High 70-100 [facility] Comment on above: Result Comment: [place] Glucose Reference Range is dependent on time and content of last meal. Glucose of more than 200 mg/dL in a nonstressed, ambulatory subject supports the diagnosis of Diabetes Mellitus. ADA recommended reference range Performed By: #### C RP, BMP, CBC, ESR #### [address] Potassium [Moles/Vol] 4.3 mmol/L Normal 3.5-5.1 [facility] Comment on above: Performed By: #### C RP, BMP, CBC, ESR #### [address] Sodium [Moles/Vol] 140 mmol/L Normal 136-145 [facility] Comment on above: Performed By: #### C RP, BMP, CBC, ESR #### [address] Urea nitrogen [Mass/Vol] 54 mg/dL High 7-25 [facility] Comment on above: Performed By: #### C RP, BMP, CBC, ESR #### [address] Basophils Auto (Bld) [#/Vol] Ordered By: Delano Mondragon on 08-29-2024 Basophils (Bld) [#/Vol] Automated basophil count 0.0-0.2 [facility] Basophils/100 WBC Auto (Bld) Ordered By: Delano Mondragon on 08-29-2024 Basophils/100 WBC (Bld) Automated basophil % . [facility] Calcium [Mass/volume] in Ser um or PlasmaOrdered By: Delano Mondragon on 08-29-2024 Calcium [Mass/Vol] Calcium [Mass/volume ] in Serum or Plasma 8.6-10.3 [facility] Carbon dioxide, total [Moles /volume] in Serum or PlasmaOrdered By: Delano Mondragon on 08-29-2024 CO2 [Moles/Vol] Carbon dioxide, tota l [Moles/volume] in Serum or Plasma 21.0-31.0 [facility] Chloride [Moles/volume] in S james or PlasmaOrdered By: Delano Mondragon on 08-29-2024 Chloride [Moles/Vol] Chloride [Moles/vol ume] in Serum or Plasma 98-107 [facility] Complete Blood Count Auto Di ffon 08-29-2024 Basophils (Bld) [#/Vol] 0.0 10*3/uL Normal 0.0-0.2 [facility] Comment on above: Result Comment: PERF ORMED BY: [place] [address] PATHOLOGIST GASTROENTEROLOGY NURSE PRACTITIONER KIM ELLIOTT M.D. Performed By: #### P T, BMP, CBC, PTT #### [address] Basophils/100 WBC (Bld) 0.3 % Normal . [facility] Comment on above: Performed By: #### P T, BMP, CBC, PTT #### [address] Eosinophils (Bld) [#/Vol] 0.5 10*3/uL High 0.0-0.45 [facility] Comment on above: Performed By: #### P T, BMP, CBC, PTT #### [place] [address] [place] Eosinophils/100 WBC (Bld) 5.2 % Normal . [facility] Comment on above: Performed By: #### P T, BMP, CBC, PTT #### [address] Erythrocyte distribution width (RBC) [Ratio] 15.2 % High 12.0-14.8 [facility] Comment on above: Performed By: #### P T, BMP, CBC, PTT #### [address] Hematocrit (Bld) [Volume fraction] 36.0 % Low 38.8-50.0 [facility] Comment on above: Performed By: #### P T, BMP, CBC, PTT #### [address] Hemoglobin (Bld) [Mass/Vol] 12.0 g/dL Low 13.0-17.0 [facility] Comment on above: Performed By: #### P T, BMP, CBC, PTT #### [address] Lymphocytes (Bld) [#/Vol] 2.6 10*3/uL Normal 1.00-4.8 [facility] Comment on above: Performed By: #### P T, BMP, CBC, PTT #### [address] Lymphocytes/100 WBC (Bld) 26.1 % Normal . [facility] Comment on above: Performed By: #### P T, BMP, CBC, PTT #### [address] MCH (RBC) [Entitic mass] 31.3 pg Normal 27.5-35.2 [facility] Comment on above: Performed By: #### P T, BMP, CBC, PTT #### [address] MCV (RBC) [Entitic vol] 93.5 fL Normal 83.5-101 [facility] Comment on above: Performed By: #### P T, BMP, CBC, PTT #### [address] Mean Corpuscular HGB Conc 33.5 g/dL Normal 32.5-35.6 [facility] Comment on above: Performed By: #### P T, BMP, CBC, PTT #### [address] Monocytes (Bld) [#/Vol] 0.8 10*3/uL Normal 0.0-0.8 [facility] Comment on above: Performed By: #### P T, BMP, CBC, PTT #### [address] Monocytes/100 WBC (Bld) 15.54 % Normal 0.00-20.00 [facility] Comment on above: Performed By: #### P T, BMP, CBC, PTT #### [address] Monocytes/100 WBC (Bld) 8.3 % Normal . [facility] Comment on above: Performed By: #### P T, BMP, CBC, PTT #### [address] Neutrophils (Bld) [#/Vol] 5.9 10*3/uL Normal 1.8-7.7 [facility] Comment on above: Performed By: #### P T, BMP, CBC, PTT #### [address] Neutrophils/100 WBC (Bld) 60.1 % Normal . [facility] Comment on above: Performed By: #### P T, BMP, CBC, PTT #### [address] NRBC% 0.0 /100{WBC} Normal 0-0.5 [facility] Comment on above: Performed By: #### P T, BMP, CBC, PTT #### [address] Platelet mean volume (Bld) [Entitic vol] 7.0 fL Normal 6.6-10.1 [facility] Comment on above: Performed By: #### P T, BMP, CBC, PTT #### [place] [address] [place] Platelets (Bld) [#/Vol] 289 10*3/uL Normal 150-450 [facility] Comment on above: Performed By: #### P T, BMP, CBC, PTT #### [place] [address] [place] RBC (Bld) [#/Vol] 3.85 10*6/uL Low 3.90-5.60 [facility] Comment on above: Performed By: #### P T, BMP, CBC, PTT #### [facility] [address] WBC (Bld) [#/Vol] 9.9 10*3/uL Normal 4.1-10.5 [facility] Comment on above: Performed By: #### P T, BMP, CBC, PTT #### [facility] [address] Creatinine [Mass/volume] in Serum or PlasmaOrdered By: Delano Mondragon on 08-29-2024 Creatinine [Mass/Vol] Creatinine [Mass/volume] in Serum or Plasma High 0.70-1.30 [facility] Eosinophils Auto (Bld) [#/Vo l]Ordered By: Delano Mondragon on 08-29-2024 Eosinophils (Bld) [#/Vol] Automated eosinophil count High 0.0-0.45 [facility] Eosinophils/100 WBC Auto (Bl d)Ordered By: Delano Mondragon on 08-29-2024 Eosinophils/100 WBC (Bld) Automated eosinophil % . [facility] Erythrocyte distribution wid th Auto (RBC) [Ratio]Ordered By: Delano Mondragon on 08-29-2024 Erythrocyte distribution width (RBC) [Ratio] Erythrocyte distribution width [Ratio] by Automated count High 12.0-14.8 [facility] Glucose [Mass/volume] in Ser um or PlasmaOrdered By: Delano Mondragon on 08-29-2024 Glucose [Mass/Vol] Glucose [Mass/volume ] in Serum or Plasma High 70-100 [facility] Comment on above: ADA recommended [...] of Blood by Automated count Low 38.8-50.0 [facility] Hemoglobin [Mass/volume] in BloodOrdered By: Delano Mondragon on 08-29-2024 Hemoglobin (Bld) [Mass/Vol] Hemoglobin [Mass/volume] in Blood Low 13.0-17.0 [facility] INR in Platelet poor plasma by Coagulation assayOrdered By: Delano Mondragon on 08-29-2024 INR Coag (PPP) [Relative time] INR in Platelet poor plasma by Coagulation assay [facility] Comment on above: INR Therapeutic [...] erythrocytes in Blood by Automated coun 4.1-10.5 [facility] Lymphocytes Auto (Bld) [#/Vo l]Ordered By: Delano Mondragon on 08-29-2024 Lymphocytes (Bld) [#/Vol] Lymphocytes [#/volume] in Blood by Automated count 1.00-4.8 [facility] Lymphocytes/100 WBC Auto (Bl d)Ordered By: Delano Mondragon on 08-29-2024 Lymphocytes/100 WBC (Bld) Lymphocytes/100 leukocytes in Blood by Automated count . [facility] MCH Auto (RBC) [Entitic mass ]Ordered By: Delano Mondragon on 08-29-2024 MCH (RBC) [Entitic mass] MCH [Entitic mass] by Automated count 27.5-35.2 [facility] MCHC Auto (RBC) [Mass/Vol]Or dered By: Delano Mondragon on 08-29-2024 MCHC (RBC) [Mass/Vol] MCHC [Mass/volume] by Automated count 32.5-35.6 [facility] MCV Auto (RBC) [Entitic vol] Ordered By: Delano Mondragon on 08-29-2024 MCV (RBC) [Entitic vol] MCV [Entitic volume] by Automated count 83.5-101 [facility] Monocyte distribution width [Entitic volume] in Blood by AutomatedOrdered By: Delano Mondragon on 08-29-2024 Monocyte distribution width Auto (Bld) [Entitic vol] Monocyte distribution width [Entitic volume] in Blood by Automated 0.00-20.00 [facility] Monocytes Auto (Bld) [#/Vol] Ordered By: Delano Mondragon on 08-29-2024 Monocytes (Bld) [#/Vol] Automated blood monocyte count 0.0-0.8 [facility] Monocytes/100 WBC Auto (Bld) Ordered By: Delano Mondragon on 08-29-2024 Monocytes/100 WBC (Bld) Automated monocyte % . [facility] Neutrophils Auto (Bld) [#/Vo l]Ordered By: Delano Mondragon on 08-29-2024 Neutrophils (Bld) [#/Vol] Neutrophils [#/volume] in Blood by Automated count 1.8-7.7 [facility] Neutrophils/100 WBC Auto (Bl d)Ordered By: Delano Mondragon on 08-29-2024 Neutrophils/100 WBC (Bld) Automated neutrophil % . [facility] No Panel InformationOrdered By: Delano Mondragon on 08-29-2024 Estimated GFR (CKD-EPI) 10.609 mL/Min [facility] Creatinine Clearance (Chem 21.80 [facility] Nucleated erythrocytes [Pres ence] in Blood by Automated countOrdered By: Delano Mondragon on 08-29-2024 Nucleated RBC Auto Ql (Bld) Nucleated erythrocytes [Presence] in Blood by Automated count 0-0.5 [facility] Partial Thromboplastin Timeo n 08-29-2024 aPTT Coag (Bld) [Time] 36.5 s Normal 25.1-36.5 [facility] e [facility] Comment on above: Result Comment: A he matocrit value greater than 55% may lead to inaccurate results in coagulation testing. Patients having hematocrit values >55% require a special collection tube for coagulation studies. Please contact the laboratory at [phone] for redraw instructions. PERFORMED BY: [facility] [address] [place] [address] PATHOLOGIST GASTROENTEROLOGY NURSE PRACTITIONER KIM ELLIOTT M.D. Performed By: #### C RP, BMP, CBC, ESR #### [facility] [address] [id number] [facility] Platelet mean volume Auto (B ld) [Entitic vol]Ordered By: Delano Mondragon on 08-29-2024 Platelet mean volume (Bld) [Entitic vol] Platelet mean volume [Entitic volume] in Blood by Automated count 6.6-10.1 [facility] Platelets Auto (Bld) [#/Vol] Ordered By: Delano Mondragon on 08-29-2024 Platelets (Bld) [#/Vol] Platelets [#/volume] in Blood by Automated count 150-450 [facility] Potassium [Moles/volume] in Serum or PlasmaOrdered By: Delano Mondragon on 08-29-2024 Potassium [Moles/Vol] Potassium [Moles/volume] in Serum or Plasma 3.5-5.1 [facility] Prothrombin Time INRon 08-29 INR Coag (PPP) [Relative time] 1.0 {INR} Normal [facility] Comment on above: Result [...] #### C RP, BMP, CBC, ESR #### [facility] [address] [id number] [facility] PT Coag (PPP) [Time] 12.0 s Normal 9.0-12.9 [facility] Comment on above: Result Comment: A he matocrit value greater than 55% may lead to inaccurate results in coagulation testing. Patients having hematocrit values >55% require a special collection tube for coagulation studies. Please contact the laboratory at [phone] for redraw instructions. Performed By: #### C RP, BMP, CBC, ESR #### [facility] [address] [id number] [facility] Prothrombin time (PT)Ordered By: Delano Mondragon on 08-29-2024 PT Coag (PPP) [Time] Prothrombin time (PT) 9.0- 12.9 [facility] Comment on above: A hematocrit value g reater than 55% may lead to inaccurate results in coagulation testing. Patients having hematocrit values >55% require a special collection tube for coagulation studies. Please contact the laboratory at [phone] for redraw instructions. RBC Auto (Bld) [#/Vol]Ordere d By: Delano Mondragon on 08-29-2024 RBC (Bld) [#/Vol] Erythrocytes [#/volu me] in Blood by Automated count Low 3.90-5.60 [facility] Serum or plasma anion gap de terminationOrdered By: Delano Mondragon on 08-29-2024 Anion gap [Moles/Vol] Serum or plasma an ion gap determination High 6.0-15.0 [facility] Sodium [Moles/volume] in Ser um or PlasmaOrdered By: Delano Mondragon on 08-29-2024 Sodium [Moles/Vol] Sodium [Moles/volume ] in Serum or Plasma 136-145 [facility] US venous duplex LE RTon US venous duplex LE RT [facility] [place] [address] Ultrasound Report Signed Patient: Evans Forte MR#: [id number] : 1970 Acct:[id number] Age/Sex: 54 / M ADM Date: 08/28/24 Loc: ER Room: Type: [facility] ER Attending Dr: Ordering Provider: [...] Ramirez Jean M.D.08/29/2024 10:46 AM Dictation Location: [place] [address] Tech: Idania Waite Transcribed By: CATHLEEN 08/29/24 104 Dictated By: Ramirez Jean MD 08/29/241044 Signed By: 08/29/24 104 Normal [facility] Urea nitrogen [Mass/volume] in Serum or PlasmaOrdered By: Delano Mondragon on 08-29-2024 Urea nitrogen [Mass/Vol] Urea nitrogen [Mass/volume] in Serum or Plasma High 7-25 [facility] WBC Auto (Bld) [#/Vol]Ordere d By: Delano Mondragon on 08-29-2024 WBC (Bld) [#/Vol] Leukocytes [#/volume ] in Blood by Automated count 4.1-10.5 [facility] aPTT in Platelet poor plasma by Coagulation assayOrdered By: Delano Mondragon on 08-29-2024 aPTT Coag (PPP) [Time] Activated partial thromboplastin time (aPTT) in platelet poor plasma by coagulation a 25.1-36.5 [facility] Comment on above: A hematocrit value g reater than 55% may lead to inaccurate results in coagulation testing. Patients having hematocrit values >55% require a special collection tube for coagulation studies. Please contact the laboratory at [phone] for redraw instructions. BONE MARROW CELL DIFFERENTIA Nick 08-22-2024 BM TOTAL CELLS COUNTED Normal Un [facility] Comment on above: Order Comment: See B one Marrow Exam Report Performed By: #### L [id number] ####[facility] (BEAKER)[address] [place] [address] BONE MARROW EXAMon LAB AP ANCILLARY RESULTS Normal [facility] Comment on above: Result Comment: Darini denis studies were completed at [facility]: Chromosomes, hematologic, bone marrow: - 46,XY[20]. Corrected result: Previously reported on 09/01/2024 at 1650 EST. Performed By: #### L [id number] ####[facility] (BEAKER)[address] [place] [address] LAB AP ASPIRATE SMEAR Normal [facility] Comment on above: Result Comment: The aspirate smears are adequately spiculate. The ktjmyfr-qn-dhmbkapcx ratio is normal. Cells of the myeloid [...] cells counted). Performed By: #### L AB6 ####[facility] ([facility])[address] [place] [address] LAB AP ASR DISCLAIMER The interpretation of [...] Clinical Laboratory Improvement Amendments of 1998. Normal [facility] Comment on above: Performed By: #### L AB6 ####[facility] ([facility])[address] [place] [address] LAB AP CASE REPORT Normal [facility] Comment on above: Result Comment: Bone Marrow Case: [id number] Authorizing Provider: Sivan Keller MD Collected: 08/22/2024 1019 Ordering Location: [facility] CT Imaging Received: 08/22/2024 1214 Pathologist: Jade Esquivel MD Specimens: A) - Bone Marrow Clot B) - Bone Marrow Biopsy C) - Bone Marrow Aspirate Performed By: #### L AB6 ####[facility] [place] [address] LAB AP CBC AND DIFFERENTIAL Normal [facility] Comment on above: Result Comment: Comp [...] unremarkable morphology. Performed By: #### L AB6 ####[facility] ([facility])[address] [place] [address] LAB AP CLINICAL INFORMATION Order Diagnoses Normal [facility] Comment on above: Result Comment: R59. 0 - Localized enlarged lymph nodes [ICD-10-CM] R59.0 - Lymphadenopathy, inguinal [ICD-10-CM] R59.0 - Pelvic lymphadenopathy [ICD-10-CM] R93.89 - Nonspecific abnormal findings on diagnostic imaging [ICD-10-CM] Performed By: #### L AB6 ####[facility] ([facility])[address] [place] [address] LAB AP CLOT SECTION Normal [facility] Comment on above: Result Comment: The aspirate clot section reveals adequate marrow particles. Marrow cellularity and composition are similar to that identified in the core biopsy. There is a single, well-circumscribed lymphoid aggregate identified. Performed By: #### L AB6 ####[facility] (BEAKER)[address] [place] [address] LAB AP CORE BIOPSY Normal [facility] Comment on above: Result Comment: The fragmented core biopsy reveals 0.8 cm of evaluable marrow with moderate aspiration artifact. Marrow cellularity approximates 80%, hypercellular for age. Maturing trilineage hematopoiesis is well represented. No atypical proliferation is identified. Performed By: #### L AB6 ####[facility] ([facility])[address] [facility] [place] [address] LAB AP CORRECTION HISTORY Karyotype analysis completed; no change in diagnosis. [facility] Comment on above: Performed By: #### L [id number] ####[facility] ([facility])[address] [facility] [place] [address] LAB AP DIAGNOSIS COMMENT Normal [facility] Comment on above: Result Comment: Cecilia ected result: Previously reported on 09/01/2024 at 1650 EST. Performed By: #### L [id number] ####[facility] ([facility])[address] [place] [place] [address] LAB AP FLOW CYTOMETRY SUMMARY [facility] Comment on above: Result Comment: Flow cytometry studies were completed at [facility]: Bone marrow, flow cytometric immunophenotyping: - Normal immunophenotyping results. No monotypic B-cell population or increase in blasts identified. Performed By: #### L AB6 ####[facility] ([facility])[address] [facility] [place] [address] [facility] Comment on above: Result Comment: A. [...] for iron. Performed By: #### L AB6 ####[facility] ([facility] [facility] [place] [address] LAB AP REPORT FINAL DIAGNOSIS NARRATIVE [facility] Comment on above: Result Comment: [...] 1650 EST. Performed By: #### L [id number] ####[facility] ([facility])[address] [place] [address] LAB AP SPECIAL STAINS Normal [facility] Comment on above: Result Comment: Iron stains were completed on the aspirate clot section, core biopsy and aspirate smear. Storage iron is decreased; no ring sideroblasts are identified. Performed By: #### L AB6 ####[facility] ([facility])[address] [place] [address] CBC WITH AUTO DIFFERENTIALon 08-22-2024 Basophils (Bld) [#/Vol] 0.06 10*3/uL Normal 0.00-0.20 [facility] Comment on above: Performed By: #### L [id number] #### [facility] ([facility]) [address] [place] [address] Basophils/100 WBC (Bld) 0.6 % Normal 0.0-1.0 [facility] Comment on above: Performed By: #### L [id number] #### [facility] ([facility]) [address] [place] [address] Eosinophils (Bld) [#/Vol] 0.53 10*3/uL High 0.00-0.50 [facility] Comment on above: Performed By: #### L [id number] #### [facility] [address] [place] [address] Eosinophils/100 WBC (Bld) 5.5 % Normal 0.0-6.0 [facility] Comment on above: Performed By: #### L [id number] #### [facility] ([facility]) [address] [place] [address] Erythrocyte distribution width (RBC) [Ratio] 14.5 % Normal 11.5-15.0 [facility] Comment on above: Performed By: #### L [id number] #### [facility] ([facility]) [address] [place] [address] ERYTHROCYTE MEAN CORPUSCULAR HEMOGLOBIN CONCENTRATION (G/DL) BY AUTOMATED 32.8 g/dL Normal 32.0-35.0 [facility] Comment on above: Performed By: #### L [id number] #### [facility] ([facility]) [address] [place] [address] Hematocrit (Bld) [Volume fraction] 36.9 % Low 39.0-55.0 [facility] Comment on above: Performed By: #### L [id number] #### [facility] ([facility]) [address] [place] [address] Hemoglobin (Bld) [Mass/Vol] 12.1 g/dL Low 13.0-17.0 [facility] Comment on above: Performed By: #### L [id number] #### [facility] ([facility]) [address] [place] [address] Immature granulocytes (Bld) [#/Vol] 0.05 10*3/uL Normal 0.00-0.20 [facility] Comment on above: Performed By: #### L [id number] #### [facility] ([facility]) [address] [place] [address] Immature granulocytes/100 WBC (Bld) 0.5 % Normal 0.0-1.0 [facility] Comment on above: Performed By: #### L [id number] #### [facility] ([facility]) [address] [place] [address] Lymphocytes (Bld) [#/Vol] 1.77 10*3/uL Normal 1.20-4.00 [facility] Comment on above: Performed By: #### L [id number] #### [facility] (BEAKER) [address] [place] [address] Lymphocytes/100 WBC (Bld) 18.3 % Low 20.0-45.0 [facility] Comment on above: Performed By: #### L [id number] #### [facility] (BEAKER) [address] [place] [address] MCH (RBC) [Entitic mass] 30.9 pg Normal 27.0-33.0 [facility] Comment on above: Performed By: #### L [id number] #### [facility] (BEAKER) [address] [place] [address] MCV (RBC) [Entitic vol] 94.4 fL Normal 82.0-98.0 [facility] Comment on above: Performed By: #### L [id number] #### [facility] (BEAKER) [address] [place] [address] Monocytes (Bld) [#/Vol] 0.65 10*3/uL Normal 0.10-1.00 [facility] Comment on above: Performed By: #### L [id number] #### [facility] (BEAKER) [address] [place] [address] Monocytes/100 WBC (Bld) 6.7 % Normal 5.0-12.0 [facility] Comment on above: Performed By: #### L [id number] #### [facility] (BEAKER) [address] [place] [address] Neutrophils (Bld) [#/Vol] 6.60 10*3/uL Normal 1.60-7.60 [facility] Comment on above: Performed By: #### L [id number] #### [facility] (BEAKER) [address] [place] [address] Neutrophils/100 WBC (Bld) 68.4 % Normal 40.0-72.0 [facility] Comment on above: Performed By: #### L [id number] #### [facility] (BEAKER) [address] [place] [address] NRBC (PER 100 WBCS) BY AUTOMATED COUNT 0.0 % Normal 0 [facility] Comment on above: Performed By: #### L [id number] #### [facility] ([facility]) [address] [place] [address] PLATELETS (10*3/UL) IN BLOOD AUTOMATED COUNT 227 10*3/uL Normal 150-400 [facility] Comment on above: Performed By: #### L [id number] #### [facility] ([facility]) [address] [place] [address] RBC (Bld) [#/Vol] 3.91 10*6/uL Low 4.20-5.70 [facility] Comment on above: Performed By: #### L [id number] #### [facility] ([facility]) [address] [place] [address] WBC (Bld) [#/Vol] 9.66 10*3/uL Normal 4.00-10.60 [facility] Comment on above: Performed By: #### L [id number] #### [facility] ([facility]) [address] [place] [address] HISTOLOGY - TISSUE EXAMon LAB AP ADDENDUM 1 Normal [facility] Comment on above: Order Comment: Pre-o p diagnosis:Enlarged lymph node [R59.9] Result Comment: Stai n for Treponema pallidum is negative. Addendum electronically signed by Jade Esquivel MD on 09/13/2024 at 10:58 AM Performed By: #### L [id number] ####[facility] ([facility])[address] [place] [address] LAB AP ASR DISCLAIMER The interpretation of [...] Clinical Laboratory Improvement Amendments of 1998. Normal [facility] Comment on above: Order Comment: Pre-o p diagnosis:Enlarged lymph node [R59.9] Performed By: #### L [id number] ####[facility] (BEAKER)[address] [place] [address] LAB AP CASE REPORT Normal [facility] Comment on above: Order Comment: Pre-o p diagnosis:Enlarged lymph node [R59.9] Result Comment: Surg ical Pathology Case: [id number] Authorizing Provider: Erick Carter MD Collected: 08/22/2024 1656 Ordering Location: [facility] Main Operating Room Received: 08/24/2024 0812 Pathologist: Jade Esquivel MD Specimens: A) - Lymph Node, right groin, frozen section B) - Lymph Node, Right groim, for permanent Performed By: #### L [id number] ####[facility] ([facility] [facility] [place] [address] LAB AP CLINICAL INFORMATION Normal [facility] Comment on above: Order Comment: Pre-o p diagnosis:Enlarged lymph node [R59.9] Result Comment: Post -Op Diagnoses R59.9 - Enlarged lymph node [ICD-10-CM] R59.0 - Inguinal lymphadenopathy [ICD-10-CM] Performed By: #### L [id number] ####[facility] (BEAKER)[address] [facility] [place] [address] LAB AP DIAGNOSIS COMMENT The morphologic features of the lymph node are favored to represent a reactive etiology; there is no evidence of malignancy in the lymph node submitted. A Treponema pallidum stain is pending; results will be reported in an addendum. [facility] Comment on above: Order Comment: Pre-o p diagnosis:Enlarged lymph node [R59.9] Performed By: #### L [id number] ####[facility] (BEAKER)[address] [facility] [place] [address] LAB AP FLOW CYTOMETRY SUMMARY [facility] Comment on above: Order Comment: Pre-o p diagnosis:Enlarged lymph node [R59.9] Result Comment: Flow cytometry studies were completed at [facility] Laboratories: Leukemia/lymphoma phenotyping evaluation by flow cytometry: - No abnormal myeloid, B-cell, T-cell, NK-cell or plasma cell population is identified. Performed By: #### L [id number] ####[facility] ([facility])[address] [place] [address] LAB AP GROSS DESCRIPTION A. Lymph Node. [facility] Comment on above: Order Comment: Pre-o [...] submitted in 4 cassettes. Lisette North, Pathologists' Parts Coordinator B. Lymph Node. Received in formalin labeled Evans Forte, Right groin is a burns rubbery lobulated bulky portion of partially shaggy tissue, 2.8 x 2 x 1.7 cm. The specimen is serially sectioned to reveal burns finely granular uniform cut surfaces and is entirely submitted in 6 cassettes. Lisette North, Pathologists' Parts Coordinator Performed By: #### L [id number] ####[facility] ([facility])[address] [place] [address] LAB AP MICROSCOPIC DESCRIPTION Microscopic examination performed. [facility] Comment on above: Order Comment: Pre-o p diagnosis:Enlarged lymph node [R59.9] Performed By: #### L [id number] ####[facility] ([facility])[address] [place] [address] LAB AP REPORT FINAL DIAGNOSIS NARRATIVE [facility] Comment on above: Order Comment: Pre-o p diagnosis:Enlarged lymph node [R59.9] Result Comment: A-B. Lymph node, right groin, excision: - Lymph node with reactive follicular hyperplasia, plasmacytosis and focally thickened capsule. - No evidence of malignancy. - See comment. Performed By: #### L [id number] ####[facility] (S[place])[place] [address] HPon 08-22-2024 HP H&P reviewed. The patient was examined and there are no changes to the H&P. Normal [facility] Labon 08-22-2024 Lab [id number] Evans Forte 1970 M Date Provider Department Center 08/22/2024 2245-[facility] OPD LAB RESOURCE [facility] OPD [place] [facility] C Family History Problem Relation Age [...] Maternal Grandmother Daughter Father's Brother Alive Normal [facility] OPNOTEon 08-22-2024 OPNOTE EXCISIONAL RIGHT TYRONE IN LYMPH NODE BIOPSY (R) Operative Note Date: 08/22/2024 Location: [facility] OR Name: Evans Ac AmosJann, : 1970, Diagnosis Pre-op Diagnosis * Enlarged [...] FLOW CYTOMETRY Erick Carter MD 08/22/241655 Routine [id number] Description: right groin flow cytometry A Lymph Node Tissue HISTOLOGY - TISSUE EXAM Erick Carter MD 08/22/241655 Routine Description: right groin permanent Staff: [employer] Counter Clerk: Aristeo Lisa RN Scrub Person: Waldemar Kelsey [...] count and sponge count were correct. Normal [facility] POCT GLUCOSE METER UNSOLICIT ED RESULTSon 08-22-2024 Glucose [Mass/Vol] 97 mg/dL Normal 70-105 [facility] Comment on above: Order Comment: Waive d Testing in the ED is performed under the ED CLIA certificate #[id number]. Result Comment: skir by Performed By: #### L [id number] #### [facility] (BEAKER) [address] [place] [address] Glucose [Mass/Vol] 115 mg/dL High 70-105 [facility] Comment on above: Order Comment: Waive d Testing in the ED is performed under the ED CLIA certificate #[id number]. Result Comment: dhol as Performed By: #### L [id number] #### [facility] (BETremor Video) [address] [place] [address] PROTIME-INRon 08-22-2024 INR IN PPP BY COAGULATION ASSAY 1.01 Normal 0.90-1.10 [facility] Comment on above: Result Comment: ACCC [...] CHEST 1995;108:231S-246S. Performed By: #### L [id number] #### [facility] (BEAKER) [address] [place] [address] PROTHROMBIN TIME (PT) IN PPP BY COAGULATION ASSAY 13.3 Seconds Normal 12.3-14.8 [facility] Comment on above: Performed By: #### L [id number] #### [facility] ([facility]ER) [address] [place] [address] Orders Onlyon 08-18-2024 Orders Only [id number] Evans Forte 1970 M Date Provider Department Center 08/18/2024 JenniferRafaelJOEY NANCY [facility] Family History Problem Relation [...] Maternal Grandmother Daughter Father's Brother Alive Normal [facility] Consulton 08-08-2024 Consult [id number] Evans Forte 1970 M Date Provider Department Center 08/08/2024 Kannan-ERICK CARTER [facility] SURG Second Fl Family History [...] Grandmother Daughter Father's Brother Alive Level of Service:48284 [place] OFFICE/OUTPATIENT NEW LOW MDM 30 MINUTES Reason for Visit and Comments: Consult [484] - Patient is here today for enlarged lymph nodes and is s/p PET scan. Normal [facility] HPon 08-08-2024 HP Subjective Patient ID: [...] skull base to mid thigh FDG Order: [id number] Status: Final result Visible to patient: Yes (seen) Dx: Enlarged lymph nodes; Pre-transplant ... 0 Result Notes Details Reading Physician Reading Date Result Priority Alonso Jaffe MD [phone] 07/31/2024 Routine Narrative & Impression History: Pretransplant [...] CT abdomen pelvis wo renal recipient Order: [id number] Status: Edited Result - FINAL Visible to patient: Yes (seen) Dx: Pre-transplant evaluation for kidney ... 0 Result Notes Details Reading Physician Reading Date Result Priority Alonso Sampson MD [phone] 07/12/2024 Routine Addenda Addendum: Note that there [...] No suspiciou (more content not included)... Normal [facility] 36on 07-31-2024 36 Patient contacted araceli HUNTER regarding the results of his PET/CT that [...] understanding. Maria De Jesus Rutledge RN Normal [facility] POCT GLUCOSE METER UNSOLICIT ED RESULTSon 07-28-2024 Glucose [Mass/Vol] 125 mg/dL High 70-105 [facility] Comment on above: Order Comment: Waive d Testing in the ED is performed under the ED CLIA certificate #[id number]. Result Comment: solange [email or web address] Performed By: #### L [id number] ####[facility] (BEAKER)[address] [place] [address] HPon 07-27-2024 HP History Of Present Illness [...] a past medical history of Adrenal nodule ([facility] Anemia, Anxiety, Charcot foot due to diabetes mellitus ([facility]), Chronic sinusitis, COVID-19, Diabetic foot ulcers ([facility]), Diabetic polyneuropathy (CMS/HCC), Diabetic retinopathy ([facility]/HCC), ED (erectile dysfunction), ESRD (end stage renal disease) ([facility]) (11/23/2022), GERD (gastroesophageal reflux disease), Glaucoma, History of tobacco use, Hyperlipidemia, Hypertension, Hypogonadism in male, Hypothyroidism, Insomnia, Neuropathy, Obesity, Osteomyelitis of ankle or foot, left, acute (CMS/[facility]), Pancreatitis, Past history of chewing tobacco use, Peripheral artery disease ([facility]), Proteinuria, Sleep apnea, Type 2 diabetes mellitus (CMS/[facility]), and Vitamin D deficiency. Surgical History He [...] Adhesive tape-silicones, Latex, Vancomycin, Adhesive, Haloperidol, and Hyde oil Medications Medications Prior to Admission Medication [...] Exam Constitutional: Appearan (more content not included)... [facility] NURSNOTEon 07-27-2024 NURSNOTE RN educated pt [...] off of unit with all of belongings. [facility] NURSNOTE .dc Normal [facility] Office Visiton 07-25-2024 Follow-up visit [id number] Evans Forte 1970 M Date Provider Department Center 07/25/2024 ARIELLE OLEKSANDRAILEEN [facility]IX [facility] Family History Problem Relation Age of Onset Breast cancer Mother Comments: age 53, METS to brain Heart disease Father Heart attack Father Comments: age 26 No Known Problems Sister Comments: half-sister Crohn's disease Daughter Comments: perforated bowel Family Status - Relation Status Age at Mother Father Sister Daughter Level of Service:53104 [place] OFFICE/OUTPATIENT NEW LOW MDM 30 MINUTES Normal [facility] Documentationon 07-14-2024 Documentation [id number] Evans Forte 1970 M Date Provider Department Center 07/14/2024 [id number] MARTINEZ None Family History Problem Relation Age of Onset Breast cancer Mother Comments: age 53, METS to brain Heart disease Father Heart attack Father Comments: age 26 No Known Problems Sister Comments: half-sister Crohn's disease Daughter Comments: perforated bowel Family Status - Relation Status Age at Mother Father Sister Daughter [facility] 36on 07-12-2024 36 TC contacted patient regarding CT results. No answer. Left voicemail. Melinda Hidalgo, RN [facility] B-TYPE NATRIURETIC PEPTIDEon 07-11-2024 Natriuretic peptide B (Bld) [Mass/Vol] 43 pg/mL Normal 0-100 [facility] Comment on above: Performed By: #### L [id number] ####[facility] (BEAKER)[address] [place] [address] BILIRUBIN, DIRECTon 07-11-20 24 Magnesium [Mass/Vol] 0.1 mg/dL Normal 0-0.2 [facility] Comment on above: Performed By: #### L [id number] ####[facility] (BEAKER)[address] [place] [address] CBC WITH AUTO DIFFERENTIALon 07-11-2024 Basophils (Bld) [#/Vol] 0.08 10*3/uL Normal 0.00-0.20 [facility] Comment on above: Performed By: #### L [id number] ####[facility] (BEAKER)[address] [place] [address] Basophils/100 WBC (Bld) 1.0 % Normal 0.0-1.0 [facility] Comment on above: Performed By: #### L [id number] ####[facility] (BEAKER)[address] [place] [address] Eosinophils (Bld) [#/Vol] 0.30 10*3/uL Normal 0.00-0.50 [facility] Comment on above: Performed By: #### L [id number] ####[facility] (BEAKER)[address] [place] [address] Eosinophils/100 WBC (Bld) 3.6 % Normal 0.0-6.0 [facility] Comment on above: Performed By: #### L [id number] ####[facility] ([facility] [place] [address] Erythrocyte distribution width (RBC) [Ratio] 14.6 % Normal 11.5-15.0 [facility] Comment on above: Performed By: #### L [id number] ####[facility] (BEAKER)[address] [place] [address] ERYTHROCYTE MEAN CORPUSCULAR HEMOGLOBIN CONCENTRATION (G/DL) BY AUTOMATED 32.8 g/dL Normal 32.0-35.0 [facility] Comment on above: Performed By: #### L [id number] ####[facility] (BEAKER)[address] [place] [address] Hematocrit (Bld) [Volume fraction] 36.3 % Low 39.0-55.0 [facility] Comment on above: Performed By: #### L [id number] ####[facility] (BEAKER)[address] [place] [address] Hemoglobin (Bld) [Mass/Vol] 11.9 g/dL Low 13.0-17.0 [facility] Comment on above: Performed By: #### L [id number] ####[facility] (BEAKER)[address] [place] [address] Immature granulocytes (Bld) [#/Vol] 0.08 10*3/uL Normal 0.00-0.20 [facility] Comment on above: Performed By: #### L [id number] ####[facility] (BEAKER)[address] [place] [address] Immature granulocytes/100 WBC (Bld) 1.0 % Normal 0.0-1.0 [facility] Comment on above: Performed By: #### L [id number] ####[facility] (BEAKER)[address] [place] [address] Lymphocytes (Bld) [#/Vol] 2.21 10*3/uL Normal 1.20-4.00 [facility] Comment on above: Performed By: #### L [id number] ####[facility] (BEAKER)[address] [place] [address] Lymphocytes/100 WBC (Bld) 26.5 % Normal 20.0-45.0 [facility] Comment on above: Performed By: #### L [id number] ####[facility] (BEAKER)[address] [place] [address] MCH (RBC) [Entitic mass] 30.1 pg Normal 27.0-33.0 [facility] Comment on above: Performed By: #### L [id number] ####[facility] (BEAKER)[address] [place] [address] MCV (RBC) [Entitic vol] 91.9 fL Normal 82.0-98.0 [facility] Comment on above: Performed By: #### L [id number] ####[facility] (BEAKER)[address] [place] [address] Monocytes (Bld) [#/Vol] 0.82 10*3/uL Normal 0.10-1.00 [facility] Comment on above: Performed By: #### L [id number] ####[facility] (BEAKER)[address] [place] [address] Monocytes/100 WBC (Bld) 9.8 % Normal 5.0-12.0 [facility] Comment on above: Performed By: #### L [id number] ####[facility] ([facility] [place] [address] Neutrophils (Bld) [#/Vol] 4.84 10*3/uL Normal 1.60-7.60 [facility] Comment on above: Performed By: #### L [id number] ####[facility] ([facility])[address] [place] [address] Neutrophils/100 WBC (Bld) 58.1 % Normal 40.0-72.0 [facility] Comment on above: Performed By: #### L [id number] ####[facility] ([facility])[address] [place] [address] NRBC (PER 100 WBCS) BY AUTOMATED COUNT 0.0 % Normal 0 [facility] Comment on above: Performed By: #### L [id number] ####[facility] ([facility])[address] [place] [address] PLATELETS (10*3/UL) IN BLOOD AUTOMATED COUNT 331 10*3/uL Normal 150-400 [facility] Comment on above: Performed By: #### L [id number] ####[facility] ([facility] [place] [address] RBC (Bld) [#/Vol] 3.95 10*6/uL Low 4.20-5.70 [facility] Comment on above: Performed By: #### L [id number] ####[facility] (BEAKER)[address] [place] [address] WBC (Bld) [#/Vol] 8.33 10*3/uL Normal 4.00-10.60 [facility] Comment on above: Performed By: #### L [id number] ####[facility] (BEAKER)[address] [place] [address] COMPREHENSIVE METABOLIC PANE Nick 07-11-2024 Albumin [Mass/Vol] 4.2 g/dL Normal 3.5-5.7 [facility] Comment on above: Performed By: #### L [id number] ####[facility] (BEAKER)[address] [place] [address] ALP [Catalytic activity/Vol] 115 U/L High 34-104 [facility] Comment on above: Performed By: #### L [id number] ####[facility] (BEKELECHI)[address] [place] [address] ALT [Catalytic activity/Vol] 12 U/L Normal 7-52 [facility] Comment on above: Performed By: #### L [id number] ####[facility] (BEAKER)[address] [place] [address] Anion gap [Moles/Vol] 14 mmol/L Normal 7-20 [facility] Comment on above: Performed By: #### L [id number] ####[facility] (BEAKER)[address] [place] [address] AST [Catalytic activity/Vol] 8 U/L Low 13-39 [facility] Comment on above: Performed By: #### L [id number] ####[facility] (BEKELECHI)[address] [place] [address] Bilirubin [Mass/Vol] 0.5 mg/dL Normal 0.3-1.0 [facility] Comment on above: Performed By: #### L [id number] ####[facility] (BEAKER)[address] [place] [address] Calcium [Mass/Vol] 9.4 mg/dL Normal 8.6-10.3 [facility] Comment on above: Performed By: #### L [id number] ####[facility] (BEAKER)[address] [place] [address] Chloride [Moles/Vol] 98 mmol/L Normal 98-107 [facility] Comment on above: Performed By: #### L [id number] ####[facility] ([facility])[address] [place] [address] CO2 [Moles/Vol] 31 mmol/L Normal 21-31 [facility] Comment on above: Performed By: #### L [id number] ####[facility] ([facility])[address] [place] [address] Creatinine [Mass/Vol] 7.27 mg/dL High 0.70-1.30 [facility] Comment on above: Performed By: #### L [id number] ####[facility] ([facility])[address] [place] [address] GLOMERULAR FILTRATION RATE ML/MIN/1.73 SQ M.PREDICTED 8.3 mL/min/1.73m*2 Low >60.0 [facility] Comment on above: Result Comment: [facility]???s estimated glomerular filtration rate (eGFR) will [...] of individuals. Performed By: #### L [id number] ####[facility] ([facility])[address] [place] [address] Glucose [Mass/Vol] 216 mg/dL High 70-100 [facility] Comment on above: Performed By: #### L [id number] ####[facility] ([facility])[address] [place] [address] Potassium [Moles/Vol] 4.1 mmol/L Normal 3.5-5.1 [facility] Comment on above: Performed By: #### L [id number] ####[facility] ([facility])[address] [place] [address] Protein [Mass/Vol] 7.6 g/dL Normal 6.0-8.3 [facility] Comment on above: Performed By: #### L [id number] ####[facility] ([facility]ER)[address] [facility] [place] [address] Sodium [Moles/Vol] 139 mmol/L Normal 136-145 [facility] Comment on above: Performed By: #### L [id number] ####[facility] (BEAKER)[address] [facility] [place] [address] Urea nitrogen [Mass/Vol] 53 mg/dL High 7-25 [facility] Comment on above: Performed By: #### L [id number] ####[facility] (BEAKER)[address] [facility] [place] [address] UREA NITROGEN/CREATININE (MASS RATIO) IN SER/PLAS 7.3 Normal [facility] Comment on above: Performed By: #### L [id number] ####[facility] (BEAKER)[address] [facility] [place] [address] CT ABDOMEN PELVIS WO RENAL R ECIPIENTon 07-11-2024 CT ABDOMEN PELVIS WO RENAL RECIPIENT Addendum: Note that there is no hydronephrosis or urinary tract calculi. Electronically signed: lAonso Sampson. CT ABDOMEN AND PELVIS WITHOUT CONTRAST [...] reasonably achievable. Electronically signed: Alonso Sampson. Normal [facility] HEMOGLOBIN A1Con 07-11-2024 Glucose [Mass/Vol] 166 mg/dL Normal [facility] Comment on above: Performed By: #### L [id number] ####[facility] ([facility])[address] [place] [address] HbA1c (Bld) [Mass fraction] 7.4 % High 4.0-6.0 [facility] Comment on above: Performed By: #### L [id number] ####[facility] ([facility])[address] [place] [address] HEPATITIS A ANTIBODY, IGMon 07-11-2024 HEPATITIS A VIRUS IGM AB PRESENCE IN SER/PLAS Non-Reactive Normal Nonreactive [facility] Comment on above: Performed By: #### L [id number] #### [facility] ([facility]) [address] [place] [address] HEPATITIS B CORE ANTIBODY, I GMon 07-11-2024 HEPATITIS B VIRUS CORE IGM AB PRESENCE IN SER/PLAS BY IMMUNOASSY Negative Normal Negative [facility] Comment on above: Result Comment: INTE RPRETIVE INFORMATION: Hepatitis B Core Ab, IgM This assay should not be used for blood donor screening, associated re-entry protocols, or for screening Human Cells, Tissues and Cellular and Tissue-Based Products (HCT/P). Performed By: [employer] [address] [place] [id number] Dry Cleaning Attendant: Aristeo Salgado MD, PhD CLIA Number: [id number] Performed By: #### L [id number] #### [employer] ([facility]) [address] [place] [address] HEPATITIS B CORE ANTIBODY, T OTALon 07-11-2024 HEPATITIS B VIRUS CORE AB (PRESENCE) IN SER/PLAS BY IMM Non-Reactive Normal Nonreactive [facility] Comment on above: Performed By: #### L [id number] ####[facility] ([facility])[address] [place] [address] HEPATITIS B SURFACE ANTIBODY QUANTon 07-11-2024 HEPATITIS B VIRUS SURFACE AB (MIU/ML) IN SERUM 1.48 mIU/mL Normal [facility] Comment on above: Result Comment: INTE RPRETATION: NONREACTIVE <8.00 mIU/mL INDETERMINATE 8.00 - 12.00 mIU/mL REACTIVE >12 mIU/mL Performed By: #### L [id number] #### [facility] ([facility]) [address] [place] [address] HEPATITIS B SURFACE ANTIGENo n 07-11-2024 HEPATITIS B VIRUS SURFACE AG PRESENCE IN SERUM Non-Reactive Normal Nonreactive [facility] Comment on above: Performed By: #### L [id number] ####[facility] ([facility])[address] [place] [address] HEPATITIS C ANTIBODYon 07-11 HEPATITIS C VIRUS AB PRESENCE IN SERUM Non-Reactive Normal Nonreactive [facility] Comment on above: Performed By: #### L [id number] ####[facility] ([facility])[address] [place] [address] HIV COMBO 4Gon 07-11-2024 HIV COMBO 4G Negative Normal Negative [facility] Comment on above: Performed By: #### L [id number] ####[facility] ([facility])[address] [place] [address] HLA ABC CLASS I TYPINGon A*-[address] [facility] Comment on above: Performed By: #### L [id number] #### [facility] ([facility]) [address] [place] [address] A*-2 25 Normal [facility] Comment on above: Performed By: #### L [id number] #### [facility] ([facility]) [address] [place] [address] B*-[address] [facility] Comment on above: Performed By: #### L [id number] #### [facility] ([facility]) [address] [place] [address] B*-[address] [facility] Comment on above: Performed By: #### L [id number] #### [facility] ([facility]) [address] [place] [address] BW*-[address] [facility] Comment on above: Performed By: #### L [id number] #### [facility] ([facility]) [address] [place] [address] C*-[address] [facility] Comment on above: Performed By: #### L [id number] #### [facility] ([facility]) [address] [place] [address] C*-[address] [facility] Comment on above: Performed By: #### L [id number] #### [facility] ([facility]) [address] [place] [address] HLA ABC CLASS I TYPING TEST METHOD Class I typing by PCR-SSOP [facility] Comment on above: Performed By: #### L [id number] #### [facility] ([facility] [address] [place] [address] HLA ABC TESTED DATE [id number] [facility] Comment on above: Performed By: #### L [id number] #### [facility] ([facility]) [address] [place] [address] CLASS II TYPINGon DPB1*-1 04:01 [facility] Comment on above: Performed By: #### L [id number] #### [facility] ([facility]) [address] [place] [address] DPB1*-2 04:01 [facility] Comment on above: Performed By: #### L [id number] #### [facility] ([facility]) [address] [place] [address] DQA1*-[address] [facility] Comment on above: Performed By: #### L [id number] #### [facility] ([facility]) [address] [place] [address] DQA1*-[address] [facility] Comment on above: Performed By: #### L [id number] #### [facility] ([facility]) [address] [place] [address] DQB1*-[address] [facility] Comment on above: Performed By: #### L [id number] #### [facility] ([facility]) [address] [place] [address] DQB1*-[address] [facility] Comment on above: Performed By: #### L [id number] #### [facility] ([facility]) [address] [place] [address] DRB1*-[address] [facility] Comment on above: Performed By: #### L [id number] #### [facility] ([facility]) [address] [place] [address] DRB1*-[address] [facility] Comment on above: Performed By: #### L [id number] #### [facility] ([facility]) [address] [place] [address] DRB4*-[address] [facility] Comment on above: Performed By: #### L [id number] #### [facility] ([facility]) [address] [place] [address] HLA COMMENTS Due to available spa ce, 53N represents the DRB4*01:03:01:02N null allele. [facility] Comment on above: Performed By: #### L [id number] #### [facility] ([facility]) [address] [place] [address] CLASS II TYPING TEST METHOD Class II typing by PCR-SSOP [facility] Comment on above: Performed By: #### L [id number] #### [facility] ([facility]) [address] [place] [address] TESTED DATE [id number] Normal Un [facility] Comment on above: Performed By: #### L [id number] #### [facility] ([facility]) [address] [place] [address] LIPID PANELon 07-11-2024 CHOL/HDL 5.5 mg/dL Normal [facility] Comment on above: Performed By: #### L [id number] ####[facility] ([facility])[address] [facility] [address] Cholesterol [Mass/Vol] 186 mg/dL Normal 120-200 [facility] Comment on above: Performed By: #### L [id number] ####[facility] ([facility])[address] [facility] [address] Magnesium [Mass/Vol] 237 mg/dL High 40-149 [facility] Comment on above: Result Comment: TRIG LYCERIDE REFERENCE RANGE: 20 YEARS AND OLDER CARDIOVASCULAR RISK LESS THAN 150 mg/dL LOW RISK 150 TO 199 mg/dL BORDERLINE RISK 200 mg/dL AND GREATER HIGH RISK Performed By: #### L [id number] ####[facility] ([facility])[address] [facility] [address] Magnesium [Mass/Vol] 105 mg/dL Normal 0-160 [facility] Comment on above: Performed By: #### L [id number] ####[facility] ([facility])[address] [facility] [place] [address] Magnesium [Mass/Vol] 34 mg/dL Normal 23-92 [facility] Comment on above: Performed By: #### L [id number] ####[facility] ([facility])[address] [place] [address] NON HDL CHOL. (LDL+VLDL) 152 Normal [facility] Comment on above: Performed By: #### L [id number] ####[facility] ([facility])[address] [place] [address] TOTAL VLDL-C 47 mg/dL High 0-40 [facility] Comment on above: Performed By: #### L [id number] ####[facility] (BEAKER)[address] [place] [address] PANEL REACTIVE ANTIBODYon HOLD SPECIMEN Hold for add-ons. Normal [facility] Comment on above: Result Comment: Auto resulted. Performed By: #### L [id number] ####[facility] TISSUE TYPING (HISTOTRAC)[address] [place] [address] [place] PROTIME-INRon 07-11-2024 INR IN PPP BY COAGULATION ASSAY 1.08 Normal 0.90-1.10 [facility] Comment on above: Result Comment: ACCC [...] CHEST 1995;108:[id number]. Performed By: #### L [id number] ####[facility] (BEAKER)[address] [place] [address] PROTHROMBIN TIME (PT) IN PPP BY COAGULATION ASSAY 14.0 Seconds Normal 12.3-14.8 [facility] Comment on above: Performed By: #### L [id number] ####[facility] (BEAKER)[address] [place] [address] PSA, SCREENINGon 07-11-2024 PROSTATE SPECIFIC AG (NG/ML) IN SER/PLAS 1.4 ng/mL Normal 0.4-4 [facility] Comment on above: Performed By: #### L [id number] ####[facility] ([facility] [place] [address] SINGLE ANTIGEN CLASS Ion CLASS I LOW RISK AB A:23 29 B:8 Normal Univ [facility] Comment on above: Performed By: #### L [id number] #### [facility] ([facility]) [address] [place] [address] CLASS I SPECIFICITY AB A:11 B:76 Normal Un [facility] Comment on above: Performed By: #### L [id number] #### [facility] ([facility] [address] [place] [address] CLASS I TESTED DATE Normal U [facility] Comment on above: Performed By: #### L [id number] #### [facility] ([facility] [address] [place] [address] SINGLE ANTIGEN CLASS 1 TEST METHOD Class I Single Antigen Normal [facility] Comment on above: Performed By: #### L [id number] #### [facility] ([facility]) [address] [place] [address] SINGLE ANTIGEN CLASS IIon CLASS II LOW RISK AB DRw:53 Normal [facility] Comment on above: Performed By: #### L [id number] #### [facility] TISSUE TYPING (HISTOTRAC) [address] [facility] [place] [address] [place] CLASS II TESTED DATE [facility] Comment on above: Performed By: #### L [id number] #### [facility] TISSUE TYPING (HISTOTRAC) [address] [place] [address] [place] [address] [facility] Comment on above: Performed By: #### L [id number] #### [facility] TISSUE TYPING (HISTOTRAC) [address] [place] [address] [facility] Performed By: #### L [id number] #### [facility] (BEAKER) [address] [place] [address] SIGNED BY Signed by Delano betancourt CHT([facility]) HEATHER(ASCP), Before And After School Daycare Worker Transplant Immunology Normal [facility] Comment on above: Performed By: #### L [id number] #### [facility] TISSUE TYPING (HISTOTRAC) [address] [place] [address] [facility] Performed By: #### L [id number] #### [facility] HOSPITAL LAB (BEAKER) [address] [place] [address] Result Comment: Clas s I Antigen Microbeads SINGLE ANTIGEN CLASS 2 TEST METHOD Class II Single Antigen Normal [facility] Comment on above: Result Comment: Clas s II Antigen Microbeads Performed By: #### L [id number] #### [facility] TISSUE TYPING (HISTOTRAC) [address] [place], [place] [address] TESTOSTERONE, FREE AND TOTAL , AND SHBGon 07-11-2024 SEX HORMONE BINDING GLOBULIN (NMOL/L) IN SER/PLAS 14 nmol/L Low 19-76 [facility] Comment on above: Performed By: #### L [id number] ####[employer] [id number] [place] [address] TESTOSTERONE (NG/DL) IN SER/PLAS 408 ng/dL Normal 193-740 [facility] Comment on above: Performed By: #### L [id number] ####[facility] Inbox [id number] [place] [address] TESTOSTERONE FREE (NG/ML) IN SER/PLAS 122.7 pg/mL Normal 47.0-244.0 [facility] Comment on above: Result Comment: The concentration of free testosterone is derived from a mathematical expression based on the constant for the binding of testosterone to albumin and/or sex hormone binding globulin. Test Performed by [employer] [employer] [address] [place] [address] - Released 07/11/2024 18:27 Performed By: #### L [id number] ####[facility] [id number] [place] [address] TYPE AND SCREENon 07-11-2024 AB SCREEN Negative Normal [facility] Comment on above: Performed By: #### L [id number] ####[facility] BLOOD BANK, ABO group Nom (Bld) A Normal [facility] Comment on above: Performed By: #### L [id number] ####[facility] BLOOD BANK, RH TYPE IN BLOOD Positive Normal [facility] Comment on above: Performed By: #### L [id number] ####[facility] BLOOD BANK, BASIC METABOLIC PANELon 06-06 Anion gap [Moles/Vol] 16 mmol/L Normal 7-20 [facility] Comment on above: Performed By: #### L [id number] ####[facility] HOSPITAL LAB (BEAKER)[address] [place] [address] Calcium [Mass/Vol] 8.7 mg/dL Normal 8.6-10.3 [facility] Comment on above: Performed By: #### L [id number] ####[facility] HOSPITAL LAB (BEAKER)[address] [place] [address] Chloride [Moles/Vol] 101 mmol/L Normal 98-107 [facility] Comment on above: Performed By: #### L [id number] ####[facility]OSPITAL LAB (BEAKER)[address] [place] [address] CO2 [Moles/Vol] 25 mmol/L Normal 21-31 [facility] Comment on above: Performed By: #### L [id number] ####[facility] LAB (BEAKER)[address] [place] [address] Creatinine [Mass/Vol] 7.29 mg/dL High 0.70-1.30 [facility] Comment on above: Performed By: #### L [id number] ####[facility] LAB (BEAKER)[address] [place] [address] GLOMERULAR FILTRATION RATE ML/MIN/1.73 SQ M.PREDICTED 8.3 mL/min/1.73m*2 Low >60.0 [facility] Comment on above: Result Comment: [facility]???s estimated glomerular filtration rate (eGFR) will [...] of individuals. Performed By: #### L [id number] ####[facility] LAB ([facility])[address] [facility] [address] Glucose [Mass/Vol] 126 mg/dL High 70-100 [facility] Comment on above: Performed By: #### L [id number] ####[facility] LAB ([facility])[address] [facility] [address] Potassium [Moles/Vol] 4.4 mmol/L Normal 3.5-5.1 [facility] Comment on above: Performed By: #### L [id number] ####[facility] LAB ([facility])[address] [facility] [address] Sodium [Moles/Vol] 138 mmol/L Normal 136-145 [facility] Comment on above: Performed By: #### L [id number] ####[facility] LAB ([facility])[address] [facility] [address] Urea nitrogen [Mass/Vol] 67 mg/dL High 7-25 [facility] Comment on above: Performed By: #### L [id number] ####[facility] LAB ([facility])[address] [facility] [address] UREA NITROGEN/CREATININE (MASS RATIO) IN SER/PLAS 9.2 Normal [facility] Comment on above: Performed By: #### L [id number] ####[facility] LAB ([facility])[address] [facility] [address] CBC WITH AUTO DIFFERENTIALon 06-22-2024 Basophils (Bld) [#/Vol] 0.03 10*3/uL Normal 0.00-0.20 [facility] Comment on above: Performed By: #### L [id number] ####[facility] LAB (BEAKER)[address] [place] [address] Basophils/100 WBC (Bld) 0.3 % Normal 0.0-1.0 [facility] Comment on above: Performed By: #### L [id number] ####[facility] LAB (BEAKER)[address] [place] [address] Eosinophils (Bld) [#/Vol] 0.24 10*3/uL Normal 0.00-0.50 [facility] Comment on above: Performed By: #### L [id number] ####[facility] LAB (BEAKER)[address] [place] [address] Eosinophils/100 WBC (Bld) 2.1 % Normal 0.0-6.0 [facility] Comment on above: Performed By: #### L [id number] ####[facility] LAB (BEAKER)[address] [place] [address] Erythrocyte distribution width (RBC) [Ratio] 15.2 % High 11.5-15.0 [facility] Comment on above: Performed By: #### L [id number] ####[facility] LAB (BEAKER)[address] [place] [address] ERYTHROCYTE MEAN CORPUSCULAR HEMOGLOBIN CONCENTRATION (G/DL) BY AUTOMATED 32.7 g/dL Normal 32.0-35.0 [facility] Comment on above: Performed By: #### L [id number] ####[facility] LAB (BEAKER)[address] [place] [address] Hematocrit (Bld) [Volume fraction] 37.0 % Low 39.0-55.0 [facility] Comment on above: Performed By: #### L [id number] ####[facility] LAB (BEAKER)[address] [place] [address] Hemoglobin (Bld) [Mass/Vol] 12.1 g/dL Low 13.0-17.0 [facility] Comment on above: Performed By: #### L [id number] ####[facility] LAB (BEAKER)[address] [place] [address] Immature granulocytes (Bld) [#/Vol] 0.07 10*3/uL Normal 0.00-0.20 [facility] Comment on above: Performed By: #### L [id number] ####[facility] LAB (BEAKER)[address] [place] [address] Immature granulocytes/100 WBC (Bld) 0.6 % Normal 0.0-1.0 [facility] Comment on above: Performed By: #### L [id number] ####[facility] LAB (BEAKER)[address] [place] [address] Lymphocytes (Bld) [#/Vol] 2.10 10*3/uL Normal 1.20-4.00 [facility] Comment on above: Performed By: #### L [id number] ####[facility] LAB (BEAKER)[address] [place] [address] Lymphocytes/100 WBC (Bld) 18.2 % Low 20.0-45.0 [facility] Comment on above: Performed By: #### L [id number] ####[facility] LAB (BEAKER)[address] [place] [address] MCH (RBC) [Entitic mass] 30.5 pg Normal 27.0-33.0 [facility] Comment on above: Performed By: #### L [id number] ####[facility] LAB (BEAKER)[address] [place] [address] MCV (RBC) [Entitic vol] 93.2 fL Normal 82.0-98.0 [facility] Comment on above: Performed By: #### L [id number] ####[facility] LAB (BEAKER)[address] [place] [address] Monocytes (Bld) [#/Vol] 0.88 10*3/uL Normal 0.10-1.00 [facility] Comment on above: Performed By: #### L [id number] ####[facility] LAB ([facility])[address] [place] [address] Monocytes/100 WBC (Bld) 7.6 % Normal 5.0-12.0 [facility] Comment on above: Performed By: #### L [id number] ####[facility] LAB ([facility])[address] [place] [address] Neutrophils (Bld) [#/Vol] 8.22 10*3/uL High 1.60-7.60 [facility] Comment on above: Performed By: #### L [id number] ####[facility] LAB ([facility])[address] [place] [address] Neutrophils/100 WBC (Bld) 71.2 % Normal 40.0-72.0 [facility] Comment on above: Performed By: #### L [id number] ####[facility] LAB ([facility])[address] [place] [address] NRBC (PER 100 WBCS) BY AUTOMATED COUNT 0.0 % Normal 0 [facility] Comment on above: Performed By: #### L [id number] ####[facility] LAB ([facility])[address] [place] [address] PLATELETS (10*3/UL) IN BLOOD AUTOMATED COUNT 294 10*3/uL Normal 150-400 [facility] Comment on above: Performed By: #### L [id number] ####[facility] LAB ([facility])[address] [place] [address] RBC (Bld) [#/Vol] 3.97 10*6/uL Low 4.20-5.70 [facility] Comment on above: Performed By: #### L [id number] ####[facility] LAB ([facility] [place], [place] [address] WBC (Bld) [#/Vol] 11.54 10*3/uL High 4.00-10.60 [facility] Comment on above: Performed By: #### L [id number] ####[facility] LAB (BEAKER)[address] [place] [address] Follow-Upon 06-22-2024 Follow-Up [id number] Jama 1970 M Date Provider Department Center 06/22/2024 367-[facility] AL[facility] CARD [place] [facility] Family History Problem Relation Age of Onset Breast cancer Mother Comments: age 53, METS to brain Heart disease Father Heart attack Father Comments: age 26 No Known Problems Sister Comments: half-sister Crohn's disease Daughter Comments: perforated bowel Family Status - Relation Status Age at Mother Father Sister Daughter Level of Service:52384 [place] OFFICE/OUTPATIENT NEW HIGH MDM 60 MINUTES Reason for Visit and Comments: Cardiac evaluation for transplant [Other] - Follow for abnormal stress done 06/13/2024 Normal [facility] Labon 06-22-2024 Lab [id number] Evans Forte 1970 M Date Provider Department Center 06/22/2024 2245-[facility] OPD LAB RESOURCE [facility]PD [facility] Family History Problem Relation Age of Onset Breast cancer Mother Comments: age 53, METS to brain Heart disease Father Heart attack Father Comments: age 26 No Known Problems Sister Comments: half-sister Crohn's disease Daughter Comments: perforated bowel Family Status - Relation Status Age at Mother Father Sister Daughter Normal [facility] HISTOLOGY - TISSUE EXAMon LAB AP CASE REPORT Normal [facility] Comment on above: Result Comment: Surg ical Pathology Case: [id number] Authorizing Provider: Anya Henley MD Collected: 06/20/2024 1141 Ordering Location: [facility] Received: 06/20/2024 1309 [facility] Pathologist: Carly Beard MD Specimen: Rectum, RECTUM POLYP Performed By: #### L [id number] ####[facility] LAB (BEAKER)[address] [place] [address] LAB AP CLINICAL INFORMATION Order Diagnoses Normal [facility] Comment on above: Result Comment: Z12. 11 - Screen for colon cancer [ICD-10-CM] Performed By: #### L [id number] ####[facility] LAB ([facility])[address] [facility] [place] [address] LAB AP GROSS DESCRIPTION A. Rectum. [facility] Comment on above: Result Comment: The [...] Toscano, student fellow Performed By: #### L [id number] ####[facility] LAB ([facility])[address] [facility] [place] [address] LAB AP MICROSCOPIC DESCRIPTION Microscopic examination performed. [facility] Comment on above: Performed By: #### L [id number] ####[facility] LAB ([facility])[address] [facility] [place] [address] LAB AP REPORT FINAL DIAGNOSIS NARRATIVE [facility] Comment on above: Result Comment: A. C olon, rectal polyp, polypectomy: - Fragments of colonic mucosa with early hyperplastic changes and lymphoid aggregate. - Negative for dysplasia. Performed By: #### L [id number] ####[facility] LAB ([facility])[address] [facility] [place] [address] HPon 06-20-2024 HP H&P reviewed. The patient was examined and there are no changes to the H&P. Here for surveillance colonoscopy with hx of multiple and large polyps in 2021 and poor prep. Normal [facility] NURSNOTEon 06-20-2024 NURSNOTE All positioning samaria rakesh removed pt remains supine. Normal [facility] POCT PERFUSION PANEL UNSOLIC ITED RESULTSon 06-20-2024 Glucose [Mass/Vol] 114 mg/dL High 70-105 [facility] Comment on above: Performed By: #### L [id number] ####[facility] LAB ([facility])[address] [place] [address] POCT BASE EXCESS Normal [facility] Comment on above: Performed By: #### L [id number] ####[facility] LAB (BEAKER)[address] [place] [address] POCT HCO3 Normal [facility] Comment on above: Performed By: #### L [id number] ####[facility] LAB (BEAKER)[address] [place] [address] POCT HEMATOCRIT Normal [facility] Comment on above: Performed By: #### L [id number] ####[facility] LAB ([facility] [place] [address] POCT HEMOGLOBIN Normal [facility] Comment on above: Performed By: #### L [id number] ####[facility] LAB ([facility])[address] [place] [address] POCT IONIZED CALCIUM Normal [facility] Comment on above: Performed By: #### L [id number] ####[facility] LAB (BEAKER)[address] [place] [address] [facility] Comment on above: Performed By: #### L [id number] ####[facility] LAB (BEAKER)[address] [place] [address] [facility] Comment on above: Performed By: #### L [id number] ####[facility] LAB (BEAKER)[address] [place] [address] [facility] Comment on above: Performed By: #### L [id number] ####[facility] LAB (BEAKER)[address] [place] [address] [facility] Comment on above: Performed By: #### L [id number] ####[facility] LAB (BEAKER)[address] [place] [address] [facility] Comment on above: Performed By: #### L [id number] ####[facility] LAB (BEAKER)[address] [place] [address] [facility] Comment on above: Performed By: #### L [id number] ####[facility] LAB ([facility])[address] [place] [address] Potassium [Moles/Vol] 4.4 mmol/L Normal 3.5-4.9 [facility] Comment on above: Performed By: #### L [id number] ####[facility] LAB ([facility])[address] [place] [address] Prep for Procedureon 024 Prep for Procedure [id number] Evans Forte 1970 M Date Provider Department Center 06/20/2024 ANYA FERRARO [facility] [place] Family History Problem Relation Age of Onset Breast cancer Mother Comments: age 53, METS to brain Heart disease Father Heart attack Father Comments: age 26 No Known Problems Sister Comments: half-sister Crohn's disease Daughter Comments: perforated bowel Family Status - Relation Status Age at Mother Father Sister Daughter [facility] 36on 06-14-2024 36 Patient called TC [...] is needed. 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 Patient stated understanding and scheduled his TE Re-eval for 07/11/24 and asked to be added to the cancellation list for any sooner appointments on Tuesdays and . TC confirmed and sent patient, referring MD and dialysis unit a letter. [facility] Orders Onlyon 06-13-2024 Orders Only [id number] Evans Forte 1970 M Date Provider Department Center 06/13/2024 [facility] Family History Problem Relation Age of Onset Breast cancer Mother Comments: age 53 Heart disease Father Heart attack Father Comments: age 26 No Known Problems Sister Comments: half-sister Crohn's disease Daughter Comments: perforated bowel Family Status - Relation Status Age at Mother Father Sister Daughter Normal [facility] Prep for Procedureon 024 Prep for Procedure [id number] JannEvans armstrong 1970 M Date Provider Department Center 06/13/2024 ANYA FERRARO [facility] G[facility] [place] Family History Problem Relation Age of Onset Breast cancer Mother Comments: age 53, METS to brain Heart disease Father Heart attack Father Comments: age 26 No Known Problems Sister Comments: half-sister Crohn's disease Daughter Comments: perforated bowel Family Status - Relation Status Age at Mother Father Sister Daughter Normal [facility] Follow-Upon 05-26-2024 Follow-Up [id number] Jann,Evans Ac 1970 M Date Provider Department Center 05/26/2024 Jose Daniel-[facility] Family History Problem Relation Age of Onset Breast cancer Mother Comments: age 53 Heart disease Father Heart attack Father Comments: age 26 No Known Problems Sister Comments: half-sister Crohn's disease Daughter Comments: perforated bowel Family Status - Relation Status Age at Mother Father Sister Daughter Level of Service:45[address] [place] OFFICE/OUTPATIENT ESTABLISHED MOD MDM 30 MIN Reason for Visit and Comments: Follow-up [138475] - Lab results Normal [facility] HPon 05-26-2024 HP Subjective Patient ID: Evans Forte is a 54 y.o. male who presents for Follow-up (Lab results ). HPI .. Pt here for office visit with his . Pt established with Dr Clay for hypogonadism, ED and pending Renal Transplant list. Pt is having wound care to right foot at this time. ESRD treated with Dialysis 3 x week locally in [place]. Pt labs reviewed: T Levels: 05/23/24 373 01/05/24: 293; 06/03/23: 330; 04/27/23: 397; 03/25/23: 470; 02/23/23: 556; 11/18/2022; 129 04/07/22 178 Estradial: 05/23/24 5 01/05/24 29; 05/31/23: 17; 03/25/23: 15.4; 02/23/23: 22.6 PSA: ..24 2.3 01/05/24 0.5; 06/03/23: 1.0; 04/27/23: 2.3; [...] Order fax to [place]. 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 No CP or SOB. No N/V/D. No abd/flank pain. Pt continues with better level of fatigue. 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 Plan: Follow up Trimix Trial with Meds. [...] hemo at center - diabetes: Yes - check examiner: 3. Urination: - amount of urine made: [...] previous fertility (more content not included)... Normal [facility] Orders Onlyon 05-24-2024 Orders Only [id number] Evans Forte 1970 M Date Provider Department Center 05/24/2024 LORETTA ACEVES [facility] Family History Problem Relation Age of Onset Breast cancer Mother Comments: age 53 Heart disease Father Heart attack Father Comments: age 26 No Known Problems Sister Comments: half-sister Crohn's disease Daughter Comments: perforated bowel Family Status - Relation Status Age at Mother Father Sister Daughter Normal [facility] CBC WITH AUTO DIFFERENTIALon 05-23-2024 Basophils (Bld) [#/Vol] 0.06 10*3/uL Normal 0.00-0.20 [facility] Comment on above: Performed By: #### L [id number] #### [facility] LAB (BEAKER) [address] [place] [address] Basophils/100 WBC (Bld) 0.5 % Normal 0.0-1.0 [facility] Comment on above: Performed By: #### L [id number] #### [facility] LAB (BEAKER) [address] [place] [address] Eosinophils (Bld) [#/Vol] 0.36 10*3/uL Normal 0.00-0.50 [facility] Comment on above: Performed By: #### L [id number] #### [facility] LAB (BEAKER) [address] [place] [address] Eosinophils/100 WBC (Bld) 3.1 % Normal 0.0-6.0 [facility] Comment on above: Performed By: #### L [id number] #### [facility] ([facility] [address] [place] [address] Erythrocyte distribution width (RBC) [Ratio] 13.7 % Normal 11.5-15.0 [facility] Comment on above: Performed By: #### L [id number] #### [facility] LAB ([facility]) [address] [place] [address] ERYTHROCYTE MEAN CORPUSCULAR HEMOGLOBIN CONCENTRATION (G/DL) BY AUTOMATED 32.4 g/dL Normal 32.0-35.0 [facility] Comment on above: Performed By: #### L [id number] #### [facility] LAB (BEAKER) [address] [place] [address] Hematocrit (Bld) [Volume fraction] 41.7 % Normal 39.0-55.0 [facility] Comment on above: Performed By: #### L [id number] #### [facility] LAB (BEAKER) [address] [place] [address] Hemoglobin (Bld) [Mass/Vol] 13.5 g/dL Normal 13.0-17.0 [facility] Comment on above: Performed By: #### L [id number] #### [facility] LAB (BEAKER) [address] [place] [address] Immature granulocytes (Bld) [#/Vol] 0.13 10*3/uL Normal 0.00-0.20 [facility] Comment on above: Performed By: #### L [id number] #### [facility] ([facility] [address] [place] [address] Immature granulocytes/100 WBC (Bld) 1.1 % High 0.0-1.0 [facility] Comment on above: Performed By: #### L [id number] #### [facility] ([facility]) [address] [place] [address] Lymphocytes (Bld) [#/Vol] 1.92 10*3/uL Normal 1.20-4.00 [facility] Comment on above: Performed By: #### L [id number] #### [facility] ([facility] [address] [place] [address] Lymphocytes/100 WBC (Bld) 16.7 % Low 20.0-45.0 [facility] Comment on above: Performed By: #### L [id number] #### [facility] LAB ([facility]) [address] [place] [address] MCH (RBC) [Entitic mass] 30.1 pg Normal 27.0-33.0 [facility] Comment on above: Performed By: #### L [id number] #### [facility] ([facility] [address] [place] [address] MCV (RBC) [Entitic vol] 93.1 fL Normal 82.0-98.0 [facility] Comment on above: Performed By: #### L [id number] #### [facility] ([facility]) [address] [place] [address] Monocytes (Bld) [#/Vol] 0.79 10*3/uL Normal 0.10-1.00 [facility] Comment on above: Performed By: #### L [id number] #### [facility] LAB (BEAKER) [address] [place] [address] Monocytes/100 WBC (Bld) 6.9 % Normal 5.0-12.0 [facility] Comment on above: Performed By: #### L [id number] #### [facility] LAB ([facility]) [address] [place] [address] Neutrophils (Bld) [#/Vol] 8.25 10*3/uL High 1.60-7.60 [facility] Comment on above: Performed By: #### L [id number] #### [facility] LAB ([facility]) [address] [place] [address] Neutrophils/100 WBC (Bld) 71.7 % Normal 40.0-72.0 [facility] Comment on above: Performed By: #### L [id number] #### [facility] LAB ([facility]) [address] [place] [address] NRBC (PER 100 WBCS) BY AUTOMATED COUNT 0.0 % Normal 0 [facility] Comment on above: Performed By: #### L [id number] #### [facility] LAB ([facility]) [address] [place] [address] PLATELETS (10*3/UL) IN BLOOD AUTOMATED COUNT 332 10*3/uL Normal 150-400 [facility] Comment on above: Performed By: #### L [id number] #### [facility] ([facility]) [address] [place] [address] RBC (Bld) [#/Vol] 4.48 10*6/uL Normal 4.20-5.70 [facility] Comment on above: Performed By: #### L [id number] #### [facility] ([facility] [address] [place] [address] WBC (Bld) [#/Vol] 11.51 10*3/uL High 4.00-10.60 [facility] Comment on above: Performed By: #### L [id number] #### [facility] ([facility] [address] [place] [address] COMPREHENSIVE METABOLIC PANE Nick 05-23-2024 Albumin [Mass/Vol] 4.5 g/dL Normal 3.5-5.7 [facility] Comment on above: Performed By: #### L [id number] ####[facility] ([facility] [place] [address] ALP [Catalytic activity/Vol] 123 U/L High 34-104 [facility] Comment on above: Performed By: #### L [id number] ####[facility] ([facility])[address] [place] [address] ALT [Catalytic activity/Vol] 25 U/L Normal 7-52 [facility] Comment on above: Performed By: #### L [id number] ####[facility] ([facility])[address] [place] [address] Anion gap [Moles/Vol] 15 mmol/L Normal 7-20 [facility] Comment on above: Performed By: #### L [id number] ####[facility] ([facility])[address] [place] [address] AST [Catalytic activity/Vol] 15 U/L Normal 13-39 [facility] Comment on above: Performed By: #### L [id number] ####[facility] ([facility])[address] [place] [address] Bilirubin [Mass/Vol] 0.6 mg/dL Normal 0.3-1.0 [facility] Comment on above: Performed By: #### L [id number] ####[facility] ([facility])[address] [place] [address] Calcium [Mass/Vol] 9.6 mg/dL Normal 8.6-10.3 [facility] Comment on above: Performed By: #### L [id number] ####[facility] ([facility])[address] [place] [address] Chloride [Moles/Vol] 98 mmol/L Normal 98-107 [facility] Comment on above: Performed By: #### L [id number] ####[facility] ([facility])[address] [place] [address] CO2 [Moles/Vol] 30 mmol/L Normal 21-31 [facility] Comment on above: Performed By: #### L [id number] ####[facility] ([facility])[address] [place] [address] Creatinine [Mass/Vol] 6.78 mg/dL High 0.70-1.30 [facility] Comment on above: Performed By: #### L [id number] ####[facility] ([facility])[address] [place] [address] GLOMERULAR FILTRATION RATE ML/MIN/1.73 SQ M.PREDICTED 9.1 mL/min/1.73m*2 Low >60.0 [facility] Comment on above: Result Comment: [facility]???s estimated glomerular filtration rate (eGFR) will [...] of individuals. Performed By: #### L [id number] ####[facility] ([facility])[address] [place] [address] Glucose [Mass/Vol] 161 mg/dL High 70-100 [facility] Comment on above: Performed By: #### L [id number] ####[facility] ([facility])[address] [place] [address] Potassium [Moles/Vol] 4.0 mmol/L Normal 3.5-5.1 [facility] Comment on above: Performed By: #### L [id number] ####[facility] ([facility])[address] [place] [address] Protein [Mass/Vol] 8.0 g/dL Normal 6.0-8.3 [facility] Comment on above: Performed By: #### L [id number] ####[facility] ([facility])[address] [place] [address] Sodium [Moles/Vol] 139 mmol/L Normal 136-145 [facility] Comment on above: Performed By: #### L [id number] ####[facility] ([facility])[address] [place] [address] Urea nitrogen [Mass/Vol] 41 mg/dL High 7-25 [facility] Comment on above: Performed By: #### L [id number] ####[facility] ([facility])[address] [place] [address] UREA NITROGEN/CREATININE (MASS RATIO) IN SER/PLAS 6.0 Normal [facility] Comment on above: Performed By: #### L [id number] ####[facility] ([facility])[address] [place] [address] ESTRADIOLon 05-23-2024 ESTRADIOL (PG/ML) IN SER/PLAS 5.0 pg/mL Low 27-52 [facility] Comment on above: Result Comment: FEMALES: Normally menstruating Luteal phase 60-232 Follicular phase 31-90 Midcycle phase 60-533 Postmenopausal (untreated) <138 Fulvestrant treatment will show an increased estradiol concentration with this methodology. Alternate methodologies are available upon request. Test Performed by [facility] [employer] [facility] [place] [address] - Released 05/23/2024 12:54 Performed By: #### L [id number] ####[facility] [id number] [place] [address] Labon 05-23-2024 Lab [id number] Evans Forte 1970 M Date Provider Department Center 05/23/20242243-[facility] MP LAB RESOURCE MP DRAW [facility] Family History Problem Relation Age of Onset Breast cancer Mother Comments: age 53 Heart disease Father Heart attack Father Comments: age 26 No Known Problems Sister Comments: half-sister Crohn's disease Daughter Comments: perforated bowel Family Status - Relation Status Age at Mother Father Sister Daughter Normal [facility] PSA, SCREENINGon 05-23-2024 PROSTATE SPECIFIC AG (NG/ML) IN SER/PLAS 2.3 ng/mL Normal 0.4-4 [facility] Comment on above: Performed By: #### L [id number] ####[facility] ([facility])[address] [place] [address] TESTOSTERONEon 05-23-2024 TESTOSTERONE (NG/DL) IN SER/PLAS 373 ng/dL Normal 193-740 [facility] Comment on above: Result Comment: Test Performed by [facility] [employer] [facility] [place] [address] - Released 05/23/2024 12:54 Performed By: #### L [id number] #### [facility] ([facility]) [address] [place] [address] Glucose Glucometer (BldC) [M ass/Vol]Ordered By: Gi Mondragon on 12-24-2023 Glucose [Mass/Vol] 207 mg/dL [facility] Comment on above: Random Glucose Refer ence Range is dependent on time and content of last meal. Glucose of more than 200 mg/dL in a nonstressed, ambulatory subject supports the diagnosis of Diabetes Mellitus. No Panel InformationOrdered By: Gi Mondragon on 12-24-2023 Bedside Glucose Comment Glu2: cleaned meter [facility] Basophils Auto (Bld) [#/Vol] Ordered By: Buddy Murguia on 11-23-2023 Basophils (Bld) [#/Vol] 0.1 10*3/uL 0.0-0.2 [facility] Basophils/100 WBC Auto (Bld) Ordered By: Buddy Murguia on 11-23-2023 Basophils/100 WBC (Bld) 0.7 % . [facility] Calcium [Mass/volume] in Ser um or PlasmaOrdered By: Buddy Murguia on 11-23-2023 Calcium [Mass/Vol] 9.3 mg/dL 8.6-10.3 [facility] Carbon dioxide, total [Moles /volume] in Serum or PlasmaOrdered By: Buddy Murguia on 11-23-2023 CO2 [Moles/Vol] 25.0 mmol/L 21.0-31.0 [facility] Chloride [Moles/volume] in S james or PlasmaOrdered By: Buddy Murguia on 11-23-2023 Chloride [Moles/Vol] 102 mmol/L 98-107 [facility] Creatinine [Mass/volume] in Serum or PlasmaOrdered By: Buddy Murguia on 11-23-2023 Creatinine [Mass/Vol] 10.07 mg/dL 0.70-1.30 [facility] Comment on above: Delta: 9.33 on 11/21-0616 Eosinophils Auto (Bld) [#/Vo l]Ordered By: Buddy Murguia on 11-23-2023 Eosinophils (Bld) [#/Vol] 0.4 10*3/uL 0.0-0.45 [facility] Eosinophils/100 WBC Auto (Bl d)Ordered By: Buddy Murguia on 11-23-2023 Eosinophils/100 WBC (Bld) 5.6 % . [facility] Erythrocyte distribution wid th Auto (RBC) [Ratio]Ordered By: Buddy Murguia on 11-23-2023 Erythrocyte distribution width (RBC) [Ratio] 15.7 % 12.0-14.8 [facility] Glucose Glucometer (BldC) [M ass/Vol]Ordered By: Amy Escudero on 11-23-2023 Glucose [Mass/Vol] 123 mg/dL [facility] Comment on above: Random Glucose Refer ence Range is dependent on time and content of last meal. Glucose of more than 200 mg/dL in a nonstressed, ambulatory subject supports the diagnosis of Diabetes Mellitus. Glucose [Mass/volume] in Ser um or PlasmaOrdered By: Buddy Murguia on 11-23-2023 Glucose [Mass/Vol] 94 mg/dL 70-100 [facility] Comment on above: ADA recommended refe rence rangeRandom Glucose Reference Range is dependent on time and content of last meal. Glucose of more than 200 mg/dL in a nonstressed, ambulatory subject supports the diagnosis of Diabetes Mellitus. Hematocrit Auto (Bld) [Volum e fraction]Ordered By: Buddy Murguia on 11-23-2023 Hematocrit (Bld) [Volume fraction] 35.2 % 38.8-50.0 [facility] Hemoglobin [Mass/volume] in BloodOrdered By: Buddy Murguia on 11-23-2023 Hemoglobin (Bld) [Mass/Vol] 11.3 g/dL 13.0-17.0 [facility] Leukocytes [#/volume] correc scott for nucleated erythrocytes in Blood by Automated counOrdered By: Buddy Murguia on 11-23-2023 WBC corrected for nucl RBC Auto (Bld) [#/Vol] 7.7 10*3/uL 4.1-10.5 [facility] Lymphocytes Auto (Bld) [#/Vo l]Ordered By: Buddy Murguia on 11-23-2023 Lymphocytes (Bld) [#/Vol] 1.6 10*3/uL 1.00-4.8 [facility] Lymphocytes/100 WBC Auto (Bl d)Ordered By: Buddy Murguia on 11-23-2023 Lymphocytes/100 WBC (Bld) 20.6 % . [facility] MCH Auto (RBC) [Entitic mass ]Ordered By: Buddy Murguia on 11-23-2023 MCH (RBC) [Entitic mass] 30.4 pg 27.5-35.2 [facility] MCHC Auto (RBC) [Mass/Vol]Or dered By: Buddy Murguia on 11-23-2023 MCHC (RBC) [Mass/Vol] 32.2 g/dL 32.5-35.6 [facility] MCV Auto (RBC) [Entitic vol] Ordered By: Buddy Murguia on 11-23-2023 MCV (RBC) [Entitic vol] 94.5 fL 83.5-101 [facility] Magnesium [Mass/volume] in S james or PlasmaOrdered By: Buddy Murguia on 11-23-2023 Magnesium [Mass/Vol] 2.7 mg/dL 1.9-2.7 [facility] Monocytes Auto (Bld) [#/Vol] Ordered By: Buddy Murguia on 11-23-2023 Monocytes (Bld) [#/Vol] 0.8 10*3/uL 0.0-0.8 [facility] Monocytes/100 WBC Auto (Bld) Ordered By: Buddy Murguia on 11-23-2023 Monocytes/100 WBC (Bld) 9.8 % . [facility] Neutrophils Auto (Bld) [#/Vo l]Ordered By: Buddy Murguia on 11-23-2023 Neutrophils (Bld) [#/Vol] 4.9 10*3/uL 1.8-7.7 [facility] Neutrophils/100 WBC Auto (Bl d)Ordered By: Buddy Murguia on 11-23-2023 Neutrophils/100 WBC (Bld) 63.3 % . [facility] No Panel InformationOrdered By: Buddy Murguia on 11-23-2023 Estimated GFR (CKD-EPI) 5.666 mL/Min [facility] Creatinine Clearance (Chem 13.08 [facility] Nucleated erythrocytes [Pres ence] in Blood by Automated countOrdered By: Buddy Murguia on 11-23-2023 Nucleated RBC Auto Ql (Bld) 0.0 /100{WBC} 0-0.5 [facility] Platelet mean volume Auto (B ld) [Entitic vol]Ordered By: Buddy Murguia on 11-23-2023 Platelet mean volume (Bld) [Entitic vol] 8.3 fL 6.6-10.1 [facility] Platelets Auto (Bld) [#/Vol] Ordered By: Buddy Murguia on 11-23-2023 Platelets (Bld) [#/Vol] 248 10*3/uL 150-450 [facility] Potassium [Moles/volume] in Serum or PlasmaOrdered By: Buddy Murguia on 11-23-2023 Potassium [Moles/Vol] 4.5 mmol/L 3.5-5.1 [facility] RBC Auto (Bld) [#/Vol]Ordere d By: Buddy Murguia on 11-23-2023 RBC (Bld) [#/Vol] 3.73 10*6/uL 3.90-5.60 [facility] Serum or plasma anion gap de terminationOrdered By: Buddy Murguia on 11-23-2023 Anion gap [Moles/Vol] 16.5 mmol/L 6.0-15.0 [facility] Sodium [Moles/volume] in Ser um or PlasmaOrdered By: Buddy Murguia on 11-23-2023 Sodium [Moles/Vol] 139 mmol/L 136-145 [facility] Urea nitrogen [Mass/volume] in Serum or PlasmaOrdered By: Buddy Murguia on 11-23-2023 Urea nitrogen [Mass/Vol] 74 mg/dL 7-25 [facility] WBC Auto (Bld) [#/Vol]Ordere d By: Buddy Murguia on 11-23-2023 WBC (Bld) [#/Vol] 7.7 10*3/uL 4.1-10.5 [facility] Prealbumin [Mass/volume] in Serum or PlasmaOrdered By: Yasmin Winchester on 11-22-2023 Prealbumin [Mass/Vol] 28.9 mg/dL 17.0-34.0 [facility] Automated erythrocytes count in urine sediment (number/area)Ordered By: Chong Dixon on 11-21-2023 RBC Auto (Urine sed) [#/Area] 1-2 [HPF] 0-4 [facility] Automated leukocytes count i n urine sediment (number/area)Ordered By: Chong Dixon on 11-21-2023 WBC Auto (Urine sed) [#/Area] 20-49 [HPF] 0-4 [facility] Bilirubin Test strip Ql (U)O rdered By: Chong Dixon on 11-21-2023 Bilirubin Ql (U) Negative Negative [facility] Color Auto (U)Ordered By: Tavon Dixon on 11-21-2023 Color (U) Yellow Yellow [facility] Glucose mean value [Mass/vol ume] in Blood Estimated from glycated hemoglobinOrdered By: Buddy Murguia on 11-21-2023 Average glucose Estimated from glycated hemoglobin (Bld) [Mass/Vol] 114 mg/dL [facility] Hemoglobin A1c percentageOrd ered By: Buddy Murguia on 11-21-2023 HbA1c (Bld) [Mass fraction] 5.6 % 4.3-5.6 [facility] Comment on above: Increased risk for d iabetes: 5.7 - 6.4diabetes: >6.4glycemic control for adults with diabetes: <7.0 Ketones Auto test strip (U) [Mass/Vol]Ordered By: Chong Dixon on 11-21-2023 Ketones (U) [Mass/Vol] Trace Negative [facility] - UrinalysisOrder ed By: Chong Dixon on 11-21-2023 Hyaline casts LM Ql (Urine sed) 9-19 [LPF] 0-8 [facility] Nitrite Test strip Ql (U)Ord ered By: Chong Dixon on 11-21-2023 Nitrite Ql (U) Negative Negative [facility] Protein Auto test strip (U) [Mass/Vol]Ordered By: Chong Dixon on 11-21-2023 Protein (U) [Mass/Vol] 300 mg/dL Negative [facility] Specific gravity Auto test s trip (U) [Rel density]Ordered By: Chong Dixon on 11-21-2023 Specific gravity (U) [Rel density] 1.021 1.001-1.030 [facility] Squamous epithelial cells de tection in urine sediment by light microscopyOrdered By: Chong Dixon on 11-21-2023 Epithelial cells.squamous LM Ql (Urine sed) 0-1 [HPF] 0-2 [facility] Urine bacteria detection by automated methodOrdered By: Cohng Dixon on 11-21-2023 Bacteria Auto Ql (U) None seen None Seen [facility] Urine clarity by refractomet ry automatedOrdered By: Chong Dixon on 11-21-2023 Clarity Refractometry automated (U) Cloudy Clear [facility] Urine culture routineOrdered By: Chong Dixon on 11-21-2023 Bacteria identified Cx Nom (U) No Growth 2 Days [facility] Urine glucose measurement by automated test strip (mass/volume)Ordered By: Chong Dixon on 11-21-2023 Glucose Auto test strip (U) [Mass/Vol] Normal mg/dL Normal [facility] Urine hemoglobin detection b y automated test stripOrdered By: Chong Dixon on 11-21-2023 Hemoglobin Auto test strip Ql (U) 2+ Negative [facility] Urine leukocyte esterase det ection by automated test stripOrdered By: Chong Dixon on 11-21-2023 Leukocyte esterase Auto test strip Ql (U) 2+ Negative [facility] Urobilinogen Auto test strip (U) [Mass/Vol]Ordered By: Chong Dixon on 11-21-2023 Urobilinogen (U) [Mass/Vol] Normal mg/dL Normal [facility] Yeast detection in urine sed iment by light microscopyOrdered By: Chong Dixon on 11-21-2023 Yeast LM Ql (Urine sed) None seen [HPF] None Seen [facility] pH Auto test strip (U)Ordere d By: Chong Dixon on 11-21-2023 pH (U) 5.0 [pH] 5.0-9.0 [facility] Activated partial thrombopla stin time (aPTT) in platelet poor plasma by coagulation aOrdered By: Chong Dixon on 11-20-2023 aPTT Coag (PPP) [Time] 31.0 s 25.1-36.5 [facility] Comment on above: A hematocrit value g reater than 55% may lead to inaccurate results in coagulation testing. Patients having hematocrit values >55% require a special collection tube for coagulation studies. Please contact the laboratory at [phone] for redraw instructions. Alanine aminotransferase [En zymatic activity/volume] in Serum or PlasmaOrdered By: Chong Dixon on 11-20-2023 ALT [Catalytic activity/Vol] 25 U/L 7-52 [facility] Albumin [Mass/volume] in Ser um or Plasma by Bromocresol green (BCG) dye binding methoOrdered By: Chong Dixon on 11-20-2023 Albumin BCG dye [Mass/Vol] 4.4 g/dL 3.5-5.7 [facility] Alkaline phosphatase [Enzyma tic activity/volume] in Serum or PlasmaOrdered By: Chong Dixon on 11-20-2023 ALP [Catalytic activity/Vol] 51 U/L 34-104 [facility] Anisocytosis LM Ql (Bld)Orde red By: Chong Dixon on 11-20-2023 Anisocytosis Ql (Bld) Moderate [facility] Aspartate aminotransferase [ Enzymatic activity/volume] in Serum or PlasmaOrdered By: Chong Dixon on 11-20-2023 AST [Catalytic activity/Vol] 24 U/L 13-39 [facility] Bacterial blood cultureOrder ed By: Chong Dixon on 11-20-2023 Bacteria identified Cx Nom (Bld) NO GROWTH 5 DAYS [facility] Basophils Auto (Bld) [#/Vol] Ordered By: Chong Dixon on 11-20-2023 Basophils (Bld) [#/Vol] N/A [facility] Basophils/100 WBC Auto (Bld) Ordered By: Chong Dixon on 11-20-2023 Basophils/100 WBC (Bld) N/A [facility] Bilirubin.total [Mass/volume ] in Serum or PlasmaOrdered By: Chong Dixon on 11-20-2023 Bilirubin [Mass/Vol] 0.6 mg/dL 0.3-1.0 [facility] C reactive protein [Mass/vol ume] in Serum or PlasmaOrdered By: Chong Dixon on 11-20-2023 CRP [Mass/Vol] 3.9 mg/dL 0.0-0.5 [facility] COVID-19 Detected/Not Detect edOrdered By: Chong Dixon on 11-20-2023 SARS-CoV-2 (COVID-19) RNA SHAY+non-probe Ql (Nph) Not detected Not Detecte [facility] Comment on above: This is a duplicate RP2.1 COVID (PCR) result to be used for statistical tracking purpose only. Calcium [Mass/volume] in Ser um or PlasmaOrdered By: Chong Dixon on 11-20-2023 Calcium [Mass/Vol] 8.9 mg/dL 8.6-10.3 [facility] Carbon dioxide, total [Moles /volume] in Serum or PlasmaOrdered By: Chong Dixon on 11-20-2023 CO2 [Moles/Vol] 21.9 mmol/L 21.0-31.0 [facility] Chloride [Moles/volume] in S james or PlasmaOrdered By: Chong Dixon on 11-20-2023 Chloride [Moles/Vol] 103 mmol/L 98-107 [facility] Creatine kinase [Enzymatic a ctivity/volume] in Serum or PlasmaOrdered By: Chong Dixon on 11-20-2023 CK [Catalytic activity/Vol] 135 U/L 30-223 [facility] Creatinine [Mass/volume] in Serum or PlasmaOrdered By: Chong Dixon on 11-20-2023 Creatinine [Mass/Vol] 6.29 mg/dL 0.70-1.30 [facility] Eosinophils Auto (Bld) [#/Vo l]Ordered By: Chong Dixon on 11-20-2023 Eosinophils (Bld) [#/Vol] N/A [facility] Eosinophils/100 WBC Auto (Bl d)Ordered By: Chong Dixon on 11-20-2023 Eosinophils/100 WBC (Bld) N/A [facility] Erythrocyte distribution wid th Auto (RBC) [Ratio]Ordered By: Chong Dixon on 11-20-2023 Erythrocyte distribution width (RBC) [Ratio] 16.1 % 12.0-14.8 [facility] Erythrocyte sedimentation ra te by Photometric methodOrdered By: Chong Dixon on 11-20-2023 ESR Photometric method (Bld) [Velocity] 66 mm/hr 0-19 [facility] Globulin Calc (S) [Mass/Vol] Ordered By: Chong Dixon on 11-20-2023 Globulin (S) [Mass/Vol] 3.9 g/dL [facility] Glucose Glucometer (BldC) [M ass/Vol]Ordered By: Chong Dixon on 11-20-2023 Glucose [Mass/Vol] 111 mg/dL [facility] Comment on above: Random Glucose Refer ence Range is dependent on time and content of last meal. Glucose of more than 200 mg/dL in a nonstressed, ambulatory subject supports the diagnosis of Diabetes Mellitus. Glucose [Mass/volume] in Ser um or PlasmaOrdered By: Chong Dixon on 11-20-2023 Glucose [Mass/Vol] 121 mg/dL 70-100 [facility] Comment on above: ADA recommended refe rence rangeRandom Glucose Reference Range is dependent on time and content of last meal. Glucose of more than 200 mg/dL in a nonstressed, ambulatory subject supports the diagnosis of Diabetes Mellitus. Hematocrit Auto (Bld) [Volum e fraction]Ordered By: Chong Dixon on 11-20-2023 Hematocrit (Bld) [Volume fraction] 38.8 % 38.8-50.0 [facility] Hemoglobin [Mass/volume] in BloodOrdered By: Chong Dixon on 11-20-2023 Hemoglobin (Bld) [Mass/Vol] 12.5 g/dL 13.0-17.0 [facility] INR in Platelet poor plasma by Coagulation assayOrdered By: Chong Dixon on 11-20-2023 INR Coag (PPP) [Relative time] 1.1 {INR} [facility] Comment on above: INR Therapeutic [...] on 11-20-2023 Lactate [Moles/Vol] 1.7 mmol/L 0.5-2.2 [facility] Leukocytes [#/volume] correc scott for nucleated erythrocytes in Blood by Automated counOrdered By: Chong Dixon on 11-20-2023 WBC corrected for nucl RBC Auto (Bld) [#/Vol] 19.5 10*3/uL 4.1-10.5 [facility] Lymphocytes Auto (Bld) [#/Vo l]Ordered By: Chong Dixon on 11-20-2023 Lymphocytes (Bld) [#/Vol] N/A [facility] Lymphocytes/100 WBC Auto (Bl d)Ordered By: Chong Dixon on 11-20-2023 Lymphocytes/100 WBC (Bld) N/A [facility] Lymphocytes/100 WBC Manual c nt (Bld)Ordered By: Chong Dixon on 11-20-2023 Lymphocytes/100 WBC (Bld) 1 % 18-42 [facility] MCH Auto (RBC) [Entitic mass ]Ordered By: Chong Dixon on 11-20-2023 MCH (RBC) [Entitic mass] 30.2 pg 27.5-35.2 [facility] MCHC Auto (RBC) [Mass/Vol]Or dered By: Chong Dixon on 11-20-2023 MCHC (RBC) [Mass/Vol] 32.2 g/dL 32.5-35.6 [facility] MCV Auto (RBC) [Entitic vol] Ordered By: Chong Dixon on 11-20-2023 MCV (RBC) [Entitic vol] 94.0 fL 83.5-101 [facility] Magnesium [Mass/volume] in S james or PlasmaOrdered By: Chong Dixon on 11-20-2023 Magnesium [Mass/Vol] 1.6 mg/dL 1.9-2.7 [facility] Microcytes LM Ql (Bld)Ordere d By: Chong Dixon on 11-20-2023 Microcytes Ql (Bld) Slight [facility] Monocyte distribution width [Entitic volume] in Blood by AutomatedOrdered By: Chong Dixon on 11-20-2023 Monocyte distribution width Auto (Bld) [Entitic vol] 25.63 % 0.00-20.00 [facility] Comment on above: The predictive value of MDW for identifying sepsis in patients with hematological abnormalities has not been established Monocytes Auto (Bld) [#/Vol] Ordered By: Chong Dixon on 11-20-2023 Monocytes (Bld) [#/Vol] N/A [facility] Monocytes/100 WBC Auto (Bld) Ordered By: Chong Dixon on 11-20-2023 Monocytes/100 WBC (Bld) N/A [facility] Monocytes/100 WBC Manual cnt (Bld)Ordered By: Chong Dixon on 11-20-2023 Monocytes/100 WBC (Bld) 4 % 2-11 [facility] Natriuretic peptide B [Mass/ Vol]Ordered By: Chong Dixon on 11-20-2023 Natriuretic peptide B (Bld) [Mass/Vol] 15.0 pg/mL 5-100 [facility] Neutrophils Auto (Bld) [#/Vo l]Ordered By: Chong Dixon on 11-20-2023 Neutrophils (Bld) [#/Vol] N/A [facility] Neutrophils/100 WBC Auto (Bl d)Ordered By: Chong Dixon on 11-20-2023 Neutrophils/100 WBC (Bld) N/A [facility] No Panel InformationOrdered By: Chong Dixon on 11-20-2023 Estimated GFR (CKD-EPI) 9.967 mL/Min [facility] Creatinine Clearance (Chem 21.03 [facility] Nucleated erythrocytes [Pres ence] in Blood by Automated countOrdered By: Chong Dixon on 11-20-2023 Nucleated RBC Auto Ql (Bld) N/A [facility] Platelet adequacy [Presence] in Blood by Light microscopyOrdered By: Chong Dixon on 11-20-2023 Platelets LM Ql (Bld) Normal Normal [facility] Platelet mean volume Auto (B ld) [Entitic vol]Ordered By: Chong Dixon on 11-20-2023 Platelet mean volume (Bld) [Entitic vol] 8.0 fL 6.6-10.1 [facility] Platelet morphology finding [Identifier] in BloodOrdered By: Chong Dixon on 11-20-2023 Platelet morphology finding Nom (Bld) Normal Normal [facility] Platelets Auto (Bld) [#/Vol] Ordered By: Chong Dixon on 11-20-2023 Platelets (Bld) [#/Vol] 280 10*3/uL 150-450 [facility] Potassium [Moles/volume] in Serum or PlasmaOrdered By: Chong Dxion on 11-20-2023 Potassium [Moles/Vol] 4.2 mmol/L 3.5-5.1 [facility] Protein [Mass/volume] in Ser um or PlasmaOrdered By: Chong Dixon on 11-20-2023 Protein [Mass/Vol] 8.3 g/dL 6.4-8.9 [facility] Prothrombin time (PT)Ordered By: Chong Dixon on 11-20-2023 PT Coag (PPP) [Time] 12.8 s 9.0-12.9 [facility] Comment on above: A hematocrit value g reater than 55% may lead to inaccurate results in coagulation testing. Patients having hematocrit values >55% require a special collection tube for coagulation studies. Please contact the laboratory at [phone] for redraw instructions. RBC Auto (Bld) [#/Vol]Ordere d By: Chong Dixon on 11-20-2023 RBC (Bld) [#/Vol] 4.12 10*6/uL 3.90-5.60 [facility] RBC morphologyOrdered By: Tavon Dixon on 11-20-2023 RBC morphology finding Nom (Bld) N/A [facility] Red blood cell stomatocyte d etectionOrdered By: Chong Dixon on 11-20-2023 Stomatocytes LM Ql (Bld) Slight [facility] Respiratory pathogens DNA an d RNA panel - Nasopharynx by SHAY with non-probe detectionOrdered By: Chong Dixon on 11-20-2023 Respiratory pathogens DNA and RNA panel SHAY+non-probe (Nph) [facility] Segmented neutrophils/100 WB C Manual cnt (Bld)Ordered By: Chong Dixon on 11-20-2023 Segmented neutrophils/100 WBC (Bld) 94 % 50-70 [facility] Serum or plasma albumin/glob ulin mass ratioOrdered By: Chong Dixon on 11-20-2023 Albumin/Globulin [Mass ratio] 1.1 {ratio} [facility] Serum or plasma anion gap de terminationOrdered By: Chong Dixon on 11-20-2023 Anion gap [Moles/Vol] 17.3 mmol/L 6.0-15.0 [facility] Sodium [Moles/volume] in Ser um or PlasmaOrdered By: Chong Dixon on 11-20-2023 Sodium [Moles/Vol] 138 mmol/L 136-145 [facility] Thyrotropin [Units/volume] i n Serum or PlasmaOrdered By: Chong Dixon on 11-20-2023 TSH Qn 1.36 m[IU]/L 0.45-5.33 [facility] Troponin I.cardiac [Mass/vol ume] in Serum or Plasma by Detection limit <= 0.01 ng/Ordered By: Chong Dixon on 11-20-2023 Troponin I.cardiac DL <= 0.01 ng/mL [Mass/Vol] 15.2 pg/mL 0.0-20.0 [facility] Urea nitrogen [Mass/volume] in Serum or PlasmaOrdered By: Chong Dixon on 11-20-2023 Urea nitrogen [Mass/Vol] 32 mg/dL 7-25 [facility] Variant lymphocytes/100 WBC Manual cnt (Bld)Ordered By: Chong Dixno on 11-20-2023 Variant lymphocytes/100 WBC (Bld) 1 % 0-12 [facility] WBC Auto (Bld) [#/Vol]Ordere d By: Chong Dixon on 11-20-2023 WBC (Bld) [#/Vol] 19.5 10*3/uL 4.1-10.5 [facility] Glucose Glucometer (BldC) [M ass/Vol]Ordered By: Flakito High on 10-27-2023 Glucose [Mass/Vol] 106 mg/dL [facility] Comment on above: Random Glucose Refer ence Range is dependent on time and content of last meal. Glucose of more than 200 mg/dL in a nonstressed, ambulatory subject supports the diagnosis of Diabetes Mellitus. Hematocrit Auto (Bld) [Volum e fraction]Ordered By: Alec Gardner on 10-27-2023 Hematocrit (Bld) [Volume fraction] 31.6 % 38.8-50.0 [facility] Hemoglobin [Mass/volume] in BloodOrdered By: Alec Gardner on 10-27-2023 Hemoglobin (Bld) [Mass/Vol] 10.3 g/dL 13.0-17.0 [facility] No Panel InformationOrdered By: Flakito High on 10-27-2023 Bedside Glucose Comment Glu2: cleaned meter [facility] Potassium [Moles/volume] in Serum or PlasmaOrdered By: Alec Gardner on 10-27-2023 Potassium [Moles/Vol] 4.5 mmol/L 3.5-5.1 [facility] Basic metabolic 1998 panelon 10-18-2023 Anion gap [Moles/Vol] 19.8 mmol/L High 6.0 - 15.0 NO [facility] Calcium [Mass/Vol] 9.2 mg/dL 8.6 - 10. 3 mg/dL [facility] Chloride [Moles/Vol] 103 mmol/L 98 - 10 7 mmol/L [facility] CO2 [Moles/Vol] 22.6 mmol/L 21.0 - 31.0 mmol/L [facility] Creatinine (U) [Mass/Vol] 9.63 mg/dL High 0.70 - 1.30 mg/dL [facility] GFR/1.73 sq M.predicted MDRD (S/P/Bld) [Vol rate/Area] 5.979 mL/min/{1.73_m2} [facility] Glucose [Mass/Vol] 105 mg/dL High 70 - 100 mg/dL [facility] Comment on above: Random Glucose Refer ence Range is dependent on time and content of last meal. Glucose of more than 200 mg/dL in a nonstressed, ambulatory subject supports the diagnosis of Diabetes Mellitus. ADA recommended reference range Interpretation and review of laboratory results Abnormal [facility] Potassium [Moles/Vol] 4.4 mmol/L 3.5 - 5.1 mmol/L [facility] Sodium [Moles/Vol] 141 mmol/L 136 - 145 mmol/L [facility] Urea nitrogen [Mass/Vol] 67 mg/dL High 7 - 25 mg/dL [facility] Basophils Auto (Bld) [#/Vol] Ordered By: Flakito High on 10-18-2023 Basophils (Bld) [#/Vol] 0.1 10*3/uL 0.0-0.2 [facility] Basophils/100 WBC Auto (Bld) Ordered By: Flakito High on 10-18-2023 Basophils/100 WBC (Bld) 0.9 % . [facility] Calcium [Mass/volume] in Ser um or PlasmaOrdered By: Flakito High on 10-18-2023 Calcium [Mass/Vol] 9.2 mg/dL 8.6-10.3 [facility] Carbon dioxide, total [Moles /volume] in Serum or PlasmaOrdered By: Flakito High on 10-18-2023 CO2 [Moles/Vol] 22.6 mmol/L 21.0-31.0 [facility] Chloride [Moles/volume] in S james or PlasmaOrdered By: Flakito High on 10-18-2023 Chloride [Moles/Vol] 103 mmol/L 98-107 [facility] Creatinine [Mass/volume] in Serum or PlasmaOrdered By: Flakito High on 10-18-2023 Creatinine [Mass/Vol] 9.63 mg/dL 0.70-1.30 [facility] Eosinophils Auto (Bld) [#/Vo l]Ordered By: Flakito High on 10-18-2023 Eosinophils (Bld) [#/Vol] 0.5 10*3/uL 0.0-0.45 [facility] Eosinophils/100 WBC Auto (Bl d)Ordered By: Flakito High on 10-18-2023 Eosinophils/100 WBC (Bld) 4.2 % . [facility] Erythrocyte distribution wid th Auto (RBC) [Ratio]Ordered By: Flakito High on 10-18-2023 Erythrocyte distribution width (RBC) [Ratio] 15.5 % 12.0-14.8 [facility] Glucose [Mass/volume] in Ser um or PlasmaOrdered By: Flakito High on 10-18-2023 Glucose [Mass/Vol] 105 mg/dL 70-100 [facility] Comment on above: ADA recommended refe rence rangeRandom Glucose Reference Range is dependent on time and content of last meal. Glucose of more than 200 mg/dL in a nonstressed, ambulatory subject supports the diagnosis of Diabetes Mellitus. Hematocrit Auto (Bld) [Volum e fraction]Ordered By: Flakito High on 10-18-2023 Hematocrit (Bld) [Volume fraction] 32.0 % 38.8-50.0 [facility] Hemoglobin [Mass/volume] in BloodOrdered By: Flakito High on 10-18-2023 Hemoglobin (Bld) [Mass/Vol] 10.6 g/dL 13.0-17.0 [facility] Leukocytes [#/volume] correc scott for nucleated erythrocytes in Blood by Automated counOrdered By: Flakito High on 10-18-2023 WBC corrected for nucl RBC Auto (Bld) [#/Vol] 10.8 10*3/uL 4.1-10.5 [facility] Lymphocytes Auto (Bld) [#/Vo l]Ordered By: Flakito High on 10-18-2023 Lymphocytes (Bld) [#/Vol] 1.4 10*3/uL 1.00-4.8 [facility] Lymphocytes/100 WBC Auto (Bl d)Ordered By: Flakito High on 10-18-2023 Lymphocytes/100 WBC (Bld) 12.5 % . [facility] MCH Auto (RBC) [Entitic mass ]Ordered By: Flakito High on 10-18-2023 MCH (RBC) [Entitic mass] 31.2 pg 27.5-35.2 [facility] MCHC Auto (RBC) [Mass/Vol]Or dered By: Flakito High on 10-18-2023 MCHC (RBC) [Mass/Vol] 33.2 g/dL 32.5-35.6 [facility] MCV Auto (RBC) [Entitic vol] Ordered By: Flakito High on 10-18-2023 MCV (RBC) [Entitic vol] 93.8 fL 83.5-101 [facility] Monocytes Auto (Bld) [#/Vol] Ordered By: Flakito High on 10-18-2023 Monocytes (Bld) [#/Vol] 0.8 10*3/uL 0.0-0.8 [facility] Monocytes/100 WBC Auto (Bld) Ordered By: Flakito High on 10-18-2023 Monocytes/100 WBC (Bld) 7.8 % . [facility] Neutrophils Auto (Bld) [#/Vo l]Ordered By: Flakito High on 10-18-2023 Neutrophils (Bld) [#/Vol] 8.1 10*3/uL 1.8-7.7 [facility] Neutrophils/100 WBC Auto (Bl d)Ordered By: Flakito High on 10-18-2023 Neutrophils/100 WBC (Bld) 74.6 % . [facility] No Panel InformationOrdered By: Flakito High on 10-18-2023 Estimated GFR (CKD-EPI) 5.979 mL/Min [facility] Creatinine Clearance (Chem N/A [facility] Nucleated erythrocytes [Pres ence] in Blood by Automated countOrdered By: Flakito High on 10-18-2023 Nucleated RBC Auto Ql (Bld) 0.1 /100{WBC} 0-0.5 [facility] Platelet mean volume Auto (B ld) [Entitic vol]Ordered By: Flakito High on 10-18-2023 Platelet mean volume (Bld) [Entitic vol] 7.4 fL 6.6-10.1 [facility] Platelets Auto (Bld) [#/Vol] Ordered By: Flakito High on 10-18-2023 Platelets (Bld) [#/Vol] 391 10*3/uL 150-450 [facility] Potassium [Moles/volume] in Serum or PlasmaOrdered By: Flakito High on 10-18-2023 Potassium [Moles/Vol] 4.4 mmol/L 3.5-5.1 [facility] RBC Auto (Bld) [#/Vol]Ordere d By: Flakito High on 10-18-2023 RBC (Bld) [#/Vol] 3.41 10*6/uL 3.90-5.60 [facility] Serum or plasma anion gap de terminationOrdered By: Flakito High on 10-18-2023 Anion gap [Moles/Vol] 19.8 mmol/L 6.0-15.0 [facility] Sodium [Moles/volume] in Ser um or PlasmaOrdered By: Flakito High on 10-18-2023 Sodium [Moles/Vol] 141 mmol/L 136-145 [facility] Urea nitrogen [Mass/volume] in Serum or PlasmaOrdered By: Flakito High on 10-18-2023 Urea nitrogen [Mass/Vol] 67 mg/dL 03-30 [facility] WBC Auto (Bld) [#/Vol]Ordere d By: Flakito High on 10-18-2023 WBC (Bld) [#/Vol] 10.8 10*3/uL 4.1-10.5 [facility] Alanine aminotransferase [En zymatic activity/volume] in Serum or PlasmaOrdered By: Chintan Sweet on 09-25-2023 ALT [Catalytic activity/Vol] 22 U/L [facility] Albumin [Mass/volume] in Ser um or Plasma by Bromocresol green (BCG) dye binding methoOrdered By: Chintan Sweet on 09-25-2023 Albumin BCG dye [Mass/Vol] 4.1 g/dL 3.5-5.7 [facility] Alkaline phosphatase [Enzyma tic activity/volume] in Serum or PlasmaOrdered By: Chintan Sweet on 09-25-2023 ALP [Catalytic activity/Vol] 40 U/L 34-104 [facility] Aspartate aminotransferase [ Enzymatic activity/volume] in Serum or PlasmaOrdered By: Chintan Sewet on 09-25-2023 AST [Catalytic activity/Vol] 22 U/L 13-39 [facility] Basophils Auto (Bld) [#/Vol] Ordered By: Chintan Sweet on 09-25-2023 Basophils (Bld) [#/Vol] 0.1 10*3/uL 0.0-0.2 [facility] Basophils/100 WBC Auto (Bld) Ordered By: Chintan Sweet on 09-25-2023 Basophils/100 WBC (Bld) 1.1 % . [facility] Bilirubin.total [Mass/volume ] in Serum or PlasmaOrdered By: Chintan Sweet on 09-25-2023 Bilirubin [Mass/Vol] 0.3 mg/dL 0.3-1.0 [facility] COVID CepheidOrdered By: Joyce Sweet on 09-25-2023 SARS-CoV-2 (COVID-19) Ab IA Ql Negative Negative [facility] Comment on above: This is a duplicate [employer] Xpert Xpress CoV-2/Flu/RSV Plus RNA by RT-PCR result to be used for statistical tracking purpose only. SARS-CoV-2 (COVID-19) RNA SHAY+probe Ql (Unsp spec) [facility] SARS-CoV-2 (COVID-19) RNA SHAY+probe Ql (Unsp spec) [facility] Calcium [Mass/volume] in Ser um or PlasmaOrdered By: Chintan Sweet on 09-25-2023 Calcium [Mass/Vol] 8.6 mg/dL 8.6-10.3 [facility] Carbon dioxide, total [Moles /volume] in Serum or PlasmaOrdered By: Chintan Sweet on 09-25-2023 CO2 [Moles/Vol] 22.6 mmol/L 21.0-31.0 [facility] Chloride [Moles/volume] in S james or PlasmaOrdered By: Chitnan Sweet on 09-25-2023 Chloride [Moles/Vol] 102 mmol/L 98-107 [facility] Creatinine [Mass/volume] in Serum or PlasmaOrdered By: Chintan Sweet on 09-25-2023 Creatinine [Mass/Vol] 5.80 mg/dL 0.70-1.30 [facility] Eosinophils Auto (Bld) [#/Vo l]Ordered By: Chintan Sweet on 09-25-2023 Eosinophils (Bld) [#/Vol] 0.4 10*3/uL 0.0-0.45 [facility] Eosinophils/100 WBC Auto (Bl d)Ordered By: Chintan Sweet on 09-25-2023 Eosinophils/100 WBC (Bld) 3.4 % . [facility] Erythrocyte distribution wid th Auto (RBC) [Ratio]Ordered By: Chintan Sweet on 09-25-2023 Erythrocyte distribution width (RBC) [Ratio] 14.7 % 12.0-14.8 [facility] Globulin Calc (S) [Mass/Vol] Ordered By: Chintan Sweet on 09-25-2023 Globulin (S) [Mass/Vol] 3.7 g/dL [facility] Glucose [Mass/volume] in Ser um or PlasmaOrdered By: Chintan Sweet on 09-25-2023 Glucose [Mass/Vol] 129 mg/dL 70-100 [facility] Comment on above: ADA recommended refe rence rangeRandom Glucose Reference Range is dependent on time and content of last meal. Glucose of more than 200 mg/dL in a nonstressed, ambulatory subject supports the diagnosis of Diabetes Mellitus. Hematocrit Auto (Bld) [Volum e fraction]Ordered By: Chintan Sweet on 09-25-2023 Hematocrit (Bld) [Volume fraction] 28.0 % 38.8-50.0 [facility] Hemoglobin [Mass/volume] in BloodOrdered By: Chintan Sweet on 09-25-2023 Hemoglobin (Bld) [Mass/Vol] 9.5 g/dL 13.0-17.0 [facility] Leukocytes [#/volume] correc scott for nucleated erythrocytes in Blood by Automated counOrdered By: Chintan Sweet on 09-25-2023 WBC corrected for nucl RBC Auto (Bld) [#/Vol] 11.7 10*3/uL 4.1-10.5 [facility] Lymphocytes Auto (Bld) [#/Vo l]Ordered By: Chintan Sweet on 09-25-2023 Lymphocytes (Bld) [#/Vol] 1.7 10*3/uL 1.00-4.8 [facility] Lymphocytes/100 WBC Auto (Bl d)Ordered By: Chintan Sweet on 09-25-2023 Lymphocytes/100 WBC (Bld) 14.2 % . [facility] MCH Auto (RBC) [Entitic mass ]Ordered By: Chintan Sweet on 09-25-2023 MCH (RBC) [Entitic mass] 31.2 pg 27.5-35.2 [facility] MCHC Auto (RBC) [Mass/Vol]Or dered By: Chintan Sweet on 09-25-2023 MCHC (RBC) [Mass/Vol] 34.1 g/dL 32.5-35.6 [facility] MCV Auto (RBC) [Entitic vol] Ordered By: Chintan Sweet on 09-25-2023 MCV (RBC) [Entitic vol] 91.4 fL 83.5-101 [facility] Monocyte distribution width [Entitic volume] in Blood by AutomatedOrdered By: Chintan Sweet on 09-25-2023 Monocyte distribution width Auto (Bld) [Entitic vol] 21.57 % 0.00-20.00 [facility] Comment on above: For adults in ED, MD W > 20.0 may be associated with a higher risk of sepsis during the first 12 hrs of hospital admission Monocytes Auto (Bld) [#/Vol] Ordered By: Chintan Sweet on 09-25-2023 Monocytes (Bld) [#/Vol] 0.8 10*3/uL 0.0-0.8 [facility] Monocytes/100 WBC Auto (Bld) Ordered By: Chintan Sweet on 09-25-2023 Monocytes/100 WBC (Bld) 6.8 % . [facility] Natriuretic peptide B [Mass/ Vol]Ordered By: Chintan Sweet on 09-25-2023 Natriuretic peptide B (Bld) [Mass/Vol] 16.0 pg/mL 5-100 [facility] Neutrophils Auto (Bld) [#/Vo l]Ordered By: Chintan Sweet on 09-25-2023 Neutrophils (Bld) [#/Vol] 8.7 10*3/uL 1.8-7.7 [facility] Neutrophils/100 WBC Auto (Bl d)Ordered By: Chintan Sweet on 09-25-2023 Neutrophils/100 WBC (Bld) 74.5 % . [facility] No Panel InformationOrdered By: Chintan Sweet on 09-25-2023 Estimated GFR (CKD-EPI) 10.985 mL/Min [facility] Creatinine Clearance (Chem 23.13 [facility] Nucleated erythrocytes [Pres ence] in Blood by Automated countOrdered By: Chintan Sweet on 09-25-2023 Nucleated RBC Auto Ql (Bld) 0.1 /100{WBC} 0-0.5 [facility] Platelet mean volume Auto (B ld) [Entitic vol]Ordered By: Chintan Sweet on 09-25-2023 Platelet mean volume (Bld) [Entitic vol] 7.9 fL 6.6-10.1 [facility] Platelets Auto (Bld) [#/Vol] Ordered By: Chintan Sweet on 09-25-2023 Platelets (Bld) [#/Vol] 330 10*3/uL 150-450 [facility] Potassium [Moles/volume] in Serum or PlasmaOrdered By: Chintan Sweet on 09-25-2023 Potassium [Moles/Vol] 3.8 mmol/L 3.5-5.1 [facility] Protein [Mass/volume] in Ser um or PlasmaOrdered By: Chintan Sweet on 09-25-2023 Protein [Mass/Vol] 7.8 g/dL 6.4-8.9 [facility] RBC Auto (Bld) [#/Vol]Ordere d By: Chintan Sweet on 09-25-2023 RBC (Bld) [#/Vol] 3.06 10*6/uL 3.90-5.60 [facility] Serum or plasma albumin/glob ulin mass ratioOrdered By: Cihntan Sweet on 09-25-2023 Albumin/Globulin [Mass ratio] 1.1 {ratio} [facility] Serum or plasma anion gap de terminationOrdered By: Chintan Sweet on 09-25-2023 Anion gap [Moles/Vol] 14.2 mmol/L 6.0-15.0 [facility] Sodium [Moles/volume] in Ser um or PlasmaOrdered By: Chintan Sweet on 09-25-2023 Sodium [Moles/Vol] 135 mmol/L 136-145 [facility] Troponin I.cardiac [Mass/vol ume] in Serum or Plasma by Detection limit <= 0.01 ng/Ordered By: Chintan Sweet on 09-25-2023 Troponin I.cardiac DL <= 0.01 ng/mL [Mass/Vol] 55.3 pg/mL 0.0-20.0 [facility] Comment on above: Critical Result : Ca lled to and read back by: JUDAH LOWRY at: 09/25/2023 23:49:03 by:CHARLIE Urea nitrogen [Mass/volume] in Serum or PlasmaOrdered By: Chintan Sweet on 09-25-2023 Urea nitrogen [Mass/Vol] 43 mg/dL 7-25 [facility] WBC Auto (Bld) [#/Vol]Ordere d By: Chintan Sweet on 09-25-2023 WBC (Bld) [#/Vol] 11.7 10*3/uL 4.1-10.5 [facility] Basophils Auto (Bld) [#/Vol] Ordered By: Moses Boateng on 09-16-2023 Basophils (Bld) [#/Vol] 0.0 10*3/uL 0.0-0.2 [facility] Basophils/100 WBC Auto (Bld) Ordered By: Moses Boateng on 09-16-2023 Basophils/100 WBC (Bld) 0.4 % . [facility] Calcium [Mass/volume] in Ser um or PlasmaOrdered By: Moses Boateng on 09-16-2023 Calcium [Mass/Vol] 8.2 mg/dL 8.6-10.3 [facility] Carbon dioxide, total [Moles /volume] in Serum or PlasmaOrdered By: Moses Boateng on 09-16-2023 CO2 [Moles/Vol] 23.5 mmol/L 21.0-31.0 [facility] Chloride [Moles/volume] in S james or PlasmaOrdered By: Moses Boateng on 09-16-2023 Chloride [Moles/Vol] 106 mmol/L 98-107 [facility] Creatinine [Mass/volume] in Serum or PlasmaOrdered By: Moses Boateng on 09-16-2023 Creatinine [Mass/Vol] 10.67 mg/dL 0.70-1.30 [facility] Eosinophils Auto (Bld) [#/Vo l]Ordered By: Moses Boateng on 09-16-2023 Eosinophils (Bld) [#/Vol] 0.4 10*3/uL 0.0-0.45 [facility] Eosinophils/100 WBC Auto (Bl d)Ordered By: Moses Boateng on 09-16-2023 Eosinophils/100 WBC (Bld) 3.5 % . [facility] Erythrocyte distribution wid th Auto (RBC) [Ratio]Ordered By: Moses Boateng on 09-16-2023 Erythrocyte distribution width (RBC) [Ratio] 14.9 % 12.0-14.8 [facility] Glucose Glucometer (BldC) [M ass/Vol]Ordered By: Ramirez Jean on 09-16-2023 Glucose [Mass/Vol] 103 mg/dL [facility] Comment on above: Random Glucose Refer ence Range is dependent on time and content of last meal. Glucose of more than 200 mg/dL in a nonstressed, ambulatory subject supports the diagnosis of Diabetes Mellitus. Glucose [Mass/volume] in Ser um or PlasmaOrdered By: Moses Boateng on 09-16-2023 Glucose [Mass/Vol] 93 mg/dL 70-100 [facility] Comment on above: ADA recommended refe rence rangeRandom Glucose Reference Range is dependent on time and content of last meal. Glucose of more than 200 mg/dL in a nonstressed, ambulatory subject supports the diagnosis of Diabetes Mellitus. Hematocrit Auto (Bld) [Volum e fraction]Ordered By: Moses Boateng on 09-16-2023 Hematocrit (Bld) [Volume fraction] 26.0 % 38.8-50.0 [facility] Hemoglobin [Mass/volume] in BloodOrdered By: Moses Boateng on 09-16-2023 Hemoglobin (Bld) [Mass/Vol] 8.7 g/dL 13.0-17.0 [facility] Leukocytes [#/volume] correc scott for nucleated erythrocytes in Blood by Automated counOrdered By: Moses Boateng on 09-16-2023 WBC corrected for nucl RBC Auto (Bld) [#/Vol] 11.3 10*3/uL 4.1-10.5 [facility] Lymphocytes Auto (Bld) [#/Vo l]Ordered By: Moses Boateng on 09-16-2023 Lymphocytes (Bld) [#/Vol] 1.7 10*3/uL 1.00-4.8 [facility] Lymphocytes/100 WBC Auto (Bl d)Ordered By: Moses Boateng on 09-16-2023 Lymphocytes/100 WBC (Bld) 14.7 % . [facility] MCH Auto (RBC) [Entitic mass ]Ordered By: Moses Boateng on 09-16-2023 MCH (RBC) [Entitic mass] 30.7 pg 27.5-35.2 [facility] MCHC Auto (RBC) [Mass/Vol]Or dered By: Moses Boateng on 09-16-2023 MCHC (RBC) [Mass/Vol] 33.4 g/dL 32.5-35.6 [facility] MCV Auto (RBC) [Entitic vol] Ordered By: Moses Boateng on 09-16-2023 MCV (RBC) [Entitic vol] 91.9 fL 83.5-101 [facility] Monocytes Auto (Bld) [#/Vol] Ordered By: Moses Boateng on 09-16-2023 Monocytes (Bld) [#/Vol] 0.8 10*3/uL 0.0-0.8 [facility] Monocytes/100 WBC Auto (Bld) Ordered By: Moses Boateng on 09-16-2023 Monocytes/100 WBC (Bld) 7.3 % . [facility] Neutrophils Auto (Bld) [#/Vo l]Ordered By: Moses Boateng on 09-16-2023 Neutrophils (Bld) [#/Vol] 8.4 10*3/uL 1.8-7.7 [facility] Neutrophils/100 WBC Auto (Bl d)Ordered By: Moses Boateng on 09-16-2023 Neutrophils/100 WBC (Bld) 74.1 % . [facility] No Panel InformationOrdered By: Moses Boateng on 09-16-2023 Estimated GFR (CKD-EPI) 5.286 mL/Min [facility] Creatinine Clearance (Chem 12.72 [facility] Nucleated erythrocytes [Pres ence] in Blood by Automated countOrdered By: Moses Boateng on 09-16-2023 Nucleated RBC Auto Ql (Bld) 0.0 /100{WBC} 0-0.5 [facility] Platelet mean volume Auto (B ld) [Entitic vol]Ordered By: Moses Boateng on 09-16-2023 Platelet mean volume (Bld) [Entitic vol] 8.0 fL 6.6-10.1 [facility] Platelets Auto (Bld) [#/Vol] Ordered By: Moses Boateng on 09-16-2023 Platelets (Bld) [#/Vol] 247 10*3/uL 150-450 [facility] Potassium [Moles/volume] in Serum or PlasmaOrdered By: Moses Boateng on 09-16-2023 Potassium [Moles/Vol] 4.3 mmol/L 3.5-5.1 [facility] RBC Auto (Bld) [#/Vol]Ordere d By: Moses Boateng on 09-16-2023 RBC (Bld) [#/Vol] 2.83 10*6/uL 3.90-5.60 [facility] Serum or plasma anion gap de terminationOrdered By: Moses Boateng on 09-16-2023 Anion gap [Moles/Vol] 17.8 mmol/L 6.0-15.0 [facility] Sodium [Moles/volume] in Ser um or PlasmaOrdered By: Moses Boateng on 09-16-2023 Sodium [Moles/Vol] 143 mmol/L 136-145 [facility] Urea nitrogen [Mass/volume] in Serum or PlasmaOrdered By: Moses Boateng on 09-16-2023 Urea nitrogen [Mass/Vol] 110 mg/dL 7-25 [facility] WBC Auto (Bld) [#/Vol]Ordere d By: Moses Boateng on 09-16-2023 WBC (Bld) [#/Vol] 11.3 10*3/uL 4.1-10.5 [facility] Alanine aminotransferase [En zymatic activity/volume] in Serum or PlasmaOrdered By: Michelle Kennedy on 06-26-2023 ALT [Catalytic activity/Vol] 16 U/L 7-52 [facility] Albumin [Mass/volume] in Ser um or Plasma by Bromocresol green (BCG) dye binding methoOrdered By: Michelle Kennedy on 06-26-2023 Albumin BCG dye [Mass/Vol] 3.8 g/dL 3.5-5.7 [facility] Alkaline phosphatase [Enzyma tic activity/volume] in Serum or PlasmaOrdered By: Michelle Kennedy on 06-26-2023 ALP [Catalytic activity/Vol] 63 U/L 34-104 [facility] Aspartate aminotransferase [ Enzymatic activity/volume] in Serum or PlasmaOrdered By: Michelle Kennedy on 06-26-2023 AST [Catalytic activity/Vol] 11 U/L 13-39 [facility] Bilirubin.total [Mass/volume ] in Serum or PlasmaOrdered By: Michelle Kennedy on 06-26-2023 Bilirubin [Mass/Vol] 0.3 mg/dL 0.3-1.0 [facility] Calcium [Mass/volume] in Ser um or PlasmaOrdered By: Michelle Kennedy on 06-26-2023 Calcium [Mass/Vol] 8.4 mg/dL 8.6-10.3 [facility] Carbon dioxide, total [Moles /volume] in Serum or PlasmaOrdered By: Michelle Kennedy on 06-26-2023 CO2 [Moles/Vol] 24.9 mmol/L 21.0-31.0 [facility] Chloride [Moles/volume] in S james or PlasmaOrdered By: Michelle Kennedy on 06-26-2023 Chloride [Moles/Vol] 107 mmol/L 98-107 [facility] Cholesterol [Mass/volume] in Serum or PlasmaOrdered By: Michelle Kennedy on 06-26-2023 Cholesterol [Mass/Vol] 143 mg/dL 140-200 [facility] Comment on above: Chol less than 200 m g/dl low riskChol 201-239 mg/dl borderline riskChol 240 mg/dl and greater high risk Cholesterol in LDL Calc [Mas s/Vol]Ordered By: Michelle Kennedy on 06-26-2023 Cholesterol in LDL [Mass/Vol] 72 mg/dL 0-100 [facility] Comment on above: LDL ATP III CLASSIFI CATIONLDL less than 100 mg/dL OptimalLDL 100-129 mg/dL Near or above optimalLDL 130-159 mg/dL Borderline highLDL 160-189 mg/dL HighLDL greater than 189 mg/dL Very high Cholesterol in VLDL Calc [Ma ss/Vol]Ordered By: Michelle Kennedy on 06-26-2023 Cholesterol in VLDL [Mass/Vol] 40 mg/dL [facility] Creatinine [Mass/volume] in Serum or PlasmaOrdered By: Michelle Kennedy on 06-26-2023 Creatinine [Mass/Vol] 8.14 mg/dL 0.70-1.30 [facility] Globulin Calc (S) [Mass/Vol] Ordered By: Michelle Kennedy on 06-26-2023 Globulin (S) [Mass/Vol] 3.2 g/dL [facility] Glucose [Mass/volume] in Ser um or PlasmaOrdered By: Michelle Kennedy on 06-26-2023 Glucose [Mass/Vol] 117 mg/dL 70-100 [facility] Comment on above: ADA recommended refe rence rangeRandom Glucose Reference Range is dependent on time and content of last meal. Glucose of more than 200 mg/dL in a nonstressed, ambulatory subject supports the diagnosis of Diabetes Mellitus. No Panel InformationOrdered By: Michelle Kennedy on 06-26-2023 C-Peptide 3.3 ng/mL 1.1-4.4 [facility] Comment on above: C-Peptide reference interval is for fasting patients.Performed at: [address] [id number] Director: Omar Frederick PhD, Phone: [phone] Estimated GFR (CKD-EPI) 7.315 mL/Min [facility] Creatinine Clearance (Chem N/A [facility] Potassium [Moles/volume] in Serum or PlasmaOrdered By: Tondra Mapus on 06-26-2023 Potassium [Moles/Vol] 4.0 mmol/L 3.5-5.1 [facility] Protein [Mass/volume] in Ser um or PlasmaOrdered By: Tondra Mapus on 06-26-2023 Protein [Mass/Vol] 7.0 g/dL 6.4-8.9 [facility] Serum or plasma albumin/glob ulin mass ratioOrdered By: Tondra Mapus on 06-26-2023 Albumin/Globulin [Mass ratio] 1.2 {ratio} [facility] Serum or plasma anion gap de terminationOrdered By: Tondra Mapus on 06-26-2023 Anion gap [Moles/Vol] 13.1 mmol/L 6.0-15.0 [facility] Serum or plasma high density lipoprotein (HDL) cholesterol measurementOrdered By: Tondra Marcia on 06-26-2023 Cholesterol in HDL [Mass/Vol] 31 mg/dL 23-92 [facility] Comment on above: HDL CHOL ATP-III CLA SSIFICATION Cardiovascular RiskHDL > or equal to 60 mg/dL LOWHDL < 40 mg/dL HIGH Serum or plasma total choles terol/high density lipoprotein (HDL) cholesterol mass ratOrdered By: Tondra Mapus on 06-26-2023 Cholesterol.total/Chol esterol in HDL [Mass ratio] 4.6 {ratio} <5.0 [facility] Sodium [Moles/volume] in Ser um or PlasmaOrdered By: Tondra Mapus on 06-26-2023 Sodium [Moles/Vol] 141 mmol/L 136-145 [facility] Triglyceride [Mass/volume] i n Serum or PlasmaOrdered By: Tondra Mapus on 06-26-2023 Triglyceride [Mass/Vol] 200 mg/dL 0-149 [facility] Comment on above: TRIG ATP III CLASSIF ICATIONTRIG less than 150 mg/dL NormalTRIG 150-199 mg/dL Borderline highTRIG 200-500 mg/dL High TRIG greater than 500 mg/dL Very highStandard traceable to the Center for Disease Conrtrol and Prevention (CDC) test method. Urea nitrogen [Mass/volume] in Serum or PlasmaOrdered By: Michelle Kennedy on 06-26-2023 Urea nitrogen [Mass/Vol] 79 mg/dL 7-25 [facility] Albumin [Mass/volume] in Ser um or PlasmaOrdered By: Yocasta Villalba on 11-07-2022 Albumin [Mass/Vol] 2.9 g/dL 3.2-5.5 [facility] Basophils Auto (Bld) [#/Vol] Ordered By: Chintan Brewster on 11-07-2022 Basophils (Bld) [#/Vol] 0.0 10*3/uL 0.0-0.2 [facility] Basophils/100 WBC Auto (Bld) Ordered By: Chintan Brewster on 11-07-2022 Basophils/100 WBC (Bld) 0.1 % . [facility] Calcium [Mass/volume] in Ser um or PlasmaOrdered By: Yocasta Villalba on 11-07-2022 Calcium [Mass/Vol] 8.2 mg/dL 8.2-10.2 [facility] Carbon dioxide, total [Moles /volume] in Serum or PlasmaOrdered By: Yocasta Villalba on 11-07-2022 CO2 [Moles/Vol] 16.2 mmol/L 22.0-30.0 [facility] Chloride [Moles/volume] in S james or PlasmaOrdered By: Yocasta Villalba on 11-07-2022 Chloride [Moles/Vol] 109 mmol/L 95-114 [facility] Creatinine and Glomerular fi ltration rate.predicted panel (S/P/Bld)Ordered By: Yocasta Villalba on 11-07-2022 Creatinine [Mass/Vol] 6.66 mg/dL 0.64-1.27 [facility] Eosinophils Auto (Bld) [#/Vo l]Ordered By: Chintan Brewster on 11-07-2022 Eosinophils (Bld) [#/Vol] 0.0 10*3/uL 0.0-0.45 [facility] Eosinophils/100 WBC Auto (Bl d)Ordered By: Chintan Brewster on 11-07-2022 Eosinophils/100 WBC (Bld) 0.1 % . [facility] Erythrocyte distribution wid th Auto (RBC) [Ratio]Ordered By: Chintan Brewster on 11-07-2022 Erythrocyte distribution width (RBC) [Ratio] 14.2 % 12.0-14.8 [facility] Estimated glomerular filtrat ion rate (GFR) non- AmericanOrdered By: Yocasta Villalba on 11-07-2022 GFR/1.73 sq M.predicted among non-blacks MDRD (S/P/Bld) [Vol rate/Area] 9 mL/Min [facility] Glucose Glucometer (dC) [M ass/Vol]Ordered By: Chintan Brewster on 11-07-2022 Glucose [Mass/Vol] 230 mg/dL [facility] Comment on above: Random Glucose Refer ence Range is dependent on time and content of last meal. Glucose of more than 200 mg/dL in a nonstressed, ambulatory subject supports the diagnosis of Diabetes Mellitus. Glucose [Mass/volume] in Ser um or PlasmaOrdered By: Yocasta Villalba on 11-07-2022 Glucose [Mass/Vol] 239 mg/dL 70-100 [facility] Comment on above: Delta: 340 on -[id number] recommended reference rangeRandom Glucose Reference Range is dependent on time and content of last meal. Glucose of more than 200 mg/dL in a nonstressed, ambulatory subject supports the diagnosis of Diabetes Mellitus. Hematocrit Auto (Bld) [Volum e fraction]Ordered By: Chintan Brewster on 11-07-2022 Hematocrit (Bld) [Volume fraction] 27.0 % 38.8-50.0 [facility] Hemoglobin [Mass/volume] in BloodOrdered By: Chintan Brewster on 11-07-2022 Hemoglobin (Bld) [Mass/Vol] 8.8 g/dL 13.0-17.0 [facility] Leukocytes [#/volume] correc scott for nucleated erythrocytes in Blood by Automated counOrdered By: Chintan Brewster on 03-04-2023 WBC corrected for nucl RBC Auto (Bld) [#/Vol] 12.4 10*3/uL 4.1-10.5 [facility] Lymphocytes Auto (Bld) [#/Vo l]Ordered By: Chintan Brewster on 11-07-2022 Lymphocytes (Bld) [#/Vol] 0.7 10*3/uL 1.00-4.8 [facility] Lymphocytes/100 WBC Auto (Bl d)Ordered By: Chintan Brewster on 11-07-2022 Lymphocytes/100 WBC (Bld) 5.8 % . [facility] MCH Auto (RBC) [Entitic mass ]Ordered By: Chintan Brewster on 11-07-2022 MCH (RBC) [Entitic mass] 29.7 pg 27.5-35.2 [facility] MCHC Auto (RBC) [Mass/Vol]Or dered By: Chintan Brewster on 11-07-2022 MCHC (RBC) [Mass/Vol] 32.7 g/dL 32.5-35.6 [facility] MCV Auto (RBC) [Entitic vol] Ordered By: Chintan Brewster on 11-07-2022 MCV (RBC) [Entitic vol] 90.8 fL 83.5-101 [facility] Monocytes Auto (Bld) [#/Vol] Ordered By: Chintan Brewster on 11-07-2022 Monocytes (Bld) [#/Vol] 0.8 10*3/uL 0.0-0.8 [facility] Monocytes/100 WBC Auto (Bld) Ordered By: Chintan Brewster on 11-07-2022 Monocytes/100 WBC (Bld) 6.5 % . [facility] Neutrophils Auto (Bld) [#/Vo l]Ordered By: Chintan Brewster on 11-07-2022 Neutrophils (Bld) [#/Vol] 10.9 10*3/uL 1.8-7.7 [facility] Neutrophils/100 WBC Auto (Bl d)Ordered By: Chintan rBewster on 11-07-2022 Neutrophils/100 WBC (Bld) 87.5 % . [facility] No Panel InformationOrdered By: Yocasta Villalba on 11-07-2022 Estimated GFR () 11 mL/Min [facility] Comment on above: GFR estimated refere nce range: According to KDOQI guidelines, <60 ml/min/1.73m2 is sufficient to diagnose a patient with chronic kidney disease. Pharmacy Creatinine Clearance (Chem 19.91 [facility] No Panel InformationOrdered By: Chintan Brewster on 11-07-2022 Bedside Glucose Comment Glu2: cleaned meter [facility] Bedside Glucose #2 Comment Will repeat test [facility] Nucleated erythrocytes [Pres ence] in Blood by Automated countOrdered By: Chintan Brewster on 11-07-2022 Nucleated RBC Auto Ql (Bld) 0.1 /100{WBC} 0-0.5 [facility] Phosphate [Mass/volume] in S james or PlasmaOrdered By: Yocasta Villalba on 11-07-2022 Phosphate [Mass/Vol] 4.2 mg/dL 2.5-4.6 [facility] Platelet mean volume Auto (B ld) [Entitic vol]Ordered By: Chintan Brewster on 11-07-2022 Platelet mean volume (Bld) [Entitic vol] 7.1 fL 6.6-10.1 [facility] Platelets Auto (Bld) [#/Vol] Ordered By: Chintan Brewster on 11-07-2022 Platelets (Bld) [#/Vol] 399 10*3/uL 150-450 [facility] Potassium [Moles/volume] in Serum or PlasmaOrdered By: Yocasta Villalba on 11-07-2022 Potassium [Moles/Vol] 4.4 mmol/L 3.5-5.1 [facility] Comment on above: *Additional results available. Contact laboratory/see report*Delta: 6.0 on 11/07/22 RBC Auto (Bld) [#/Vol]Ordere d By: Chintan Brewster on 11-07-2022 RBC (Bld) [#/Vol] 2.97 10*6/uL 3.90-5.60 [facility] Serum or plasma anion gap de terminationOrdered By: Yocasta Villalba on 11-07-2022 Anion gap [Moles/Vol] 14.2 mmol/L 6.0-15.0 [facility] Sodium [Moles/volume] in Ser um or PlasmaOrdered By: Yocasta Villalba on 11-07-2022 Sodium [Moles/Vol] 135 mmol/L 136-146 [facility] Urea nitrogen [Mass/volume] in Serum or PlasmaOrdered By: Yocasta Villalba on 11-07-2022 Urea nitrogen [Mass/Vol] 73 mg/dL 9-23 [facility] WBC Auto (Bld) [#/Vol]Ordere d By: Chintan Brewster on 11-07-2022 WBC (Bld) [#/Vol] 12.4 10*3/uL 4.1-10.[address] [facility] [address] biopsyOrdered By: Yocasta rockwell on 11-06-2022 Transferrin [Mass/Vol] 225 mg/dL 180-380 [facility] Ferritin [Mass/volume] in Se rum or PlasmaOrdered By: Yocasta Villalba on 11-06-2022 Ferritin [Mass/Vol] 363.1 ng/mL 23.9-336.2 [facility] Folate [Mass/volume] in Seru m or PlasmaOrdered By: Yocasta Villalba on 11-06-2022 Folate [Mass/Vol] 11.5 ng/mL >5.9 [facility] Comment on above: Folate reference ran ge: >5.9 ng/mlThe WHO technical consultation on folate and vitamin [id number] has determined that folate concentrations lessthan 4 ng/ml are considered deficient. Iron [Mass/volume] in Serum or PlasmaOrdered By: Yocasta Villalba on 11-06-2022 Iron [Mass/Vol] 38 ug/dL 40-160 [facility] Iron binding capacity [Mass/ volume] in Serum or PlasmaOrdered By: Yocasta Villalba on 11-06-2022 Iron binding capacity [Mass/Vol] 315 ug/dL 255-450 [facility] Iron saturation [Mass Fracti on] in Serum or PlasmaOrdered By: Yocasta Villalba on 11-06-2022 Iron saturation [Mass fraction] 12.1 % 20-50 [facility] COVID CepheidOrdered By: Joyce Brewster on 11-05-2022 SARS-CoV-2 (COVID-19) Ab IA Ql Negative Negative [facility] Comment on above: This is a duplicate [employer] Xpert Xpress CoV-2/Flu/RSV Plus RNA by RT-PCR result to be used for statistical tracking purpose only. SARS-CoV-2 (COVID-19) RNA SHAY+probe Ql (Unsp spec) [facility] SARS-CoV-2 (COVID-19) RNA SHAY+probe Ql (Unsp spec) [facility] Activated partial thrombopla stin time (aPTT) in platelet poor plasma by coagulation aOrdered By: Millie Burgos on 11-04-2022 aPTT Coag (PPP) [Time] 35.0 s 25.1-36.5 [facility] Albumin [Mass/volume] in Bod y fluidOrdered By: Delano Mondragon on 11-04-2022 Albumin (Body fld) [Mass/Vol] 3.3 g/dL 3.2-5.5 [facility] Alkaline phosphatase [Enzyma tic activity/volume] in Serum or PlasmaOrdered By: Delano Mondragon on 11-04-2022 ALP [Catalytic activity/Vol] 59 U/L 32-92 [facility] Aspartate aminotransferase [ Enzymatic activity/volume] in Serum or PlasmaOrdered By: Delano Mondragon on 11-04-2022 AST [Catalytic activity/Vol] 14 U/L 10-42 [facility] Automated erythrocytes count in urine sediment (number/area)Ordered By: Millie Burgos on 11-04-2022 RBC Auto (Urine sed) [#/Area] 3-4 [HPF] 0-4 [facility] Automated leukocytes count i n urine sediment (number/area)Ordered By: Millie Burgos on 11-04-2022 WBC Auto (Urine sed) [#/Area] 1-2 [HPF] 0-4 [facility] Basophils Auto (Bld) [#/Vol] Ordered By: Delano Mondragon on 11-04-2022 Basophils (Bld) [#/Vol] 0.1 10*3/uL 0.0-0.2 [facility] Basophils/100 WBC Auto (Bld) Ordered By: Delano Mondragon on 11-04-2022 Basophils/100 WBC (Bld) 1.1 % . [facility] Bilirubin Test strip Ql (U)O rdered By: Millie Burgos on 11-04-2022 Bilirubin Ql (U) Negative Negative [facility] Bilirubin.total [Mass/volume ] in Serum or PlasmaOrdered By: Delano Mondragon on 11-04-2022 Bilirubin [Mass/Vol] 0.3 mg/dL 0.3-1.2 [facility] Calcium [Mass/volume] in Ser um or PlasmaOrdered By: Delano Mondragon on 11-04-2022 Calcium [Mass/Vol] 8.9 mg/dL 8.2-10.2 [facility] Carbon dioxide, total [Moles /volume] in Serum or PlasmaOrdered By: Delano Mondragon on 11-04-2022 CO2 [Moles/Vol] 17.3 mmol/L 22.0-30.0 [facility] Chloride [Moles/volume] in S james or PlasmaOrdered By: Delano Mondragon on 11-04-2022 Chloride [Moles/Vol] 112 mmol/L 95-114 [facility] Color Auto (U)Ordered By: Jose M Burgos on 11-04-2022 Color (U) Yellow Yellow [facility] Creatinine and Glomerular fi ltration rate.predicted panel (S/P/Bld)Ordered By: Delano Mondragon on 11-04-2022 Creatinine [Mass/Vol] 5.77 mg/dL 0.64-1.27 [facility] Eosinophils Auto (Bld) [#/Vo l]Ordered By: Delano Mondragon on 11-04-2022 Eosinophils (Bld) [#/Vol] 0.3 10*3/uL 0.0-0.45 [facility] Eosinophils/100 WBC Auto (Bl d)Ordered By: Delano Monrdagon on 11-04-2022 Eosinophils/100 WBC (Bld) 2.7 % . [facility] Erythrocyte distribution wid th Auto (RBC) [Ratio]Ordered By: Delano Mondragon on 11-04-2022 Erythrocyte distribution width (RBC) [Ratio] 14.5 % 12.0-14.8 [facility] Estimated glomerular filtrat ion rate (GFR) non- AmericanOrdered By: Delano Mondragon on 11-04-2022 GFR/1.73 sq M.predicted among non-blacks MDRD (S/P/Bld) [Vol rate/Area] 10 mL/Min [facility] Globulin Calc (S) [Mass/Vol] Ordered By: Delano Mondragon on 11-04-2022 Globulin (S) [Mass/Vol] 4.2 g/dL [facility] Glucose [Mass/volume] in Ser um or PlasmaOrdered By: Delano Mondragon on 11-04-2022 Glucose [Mass/Vol] 82 mg/dL 70-100 [facility] Comment on above: ADA recommended refe rence rangeRandom Glucose Reference Range is dependent on time and content of last meal. Glucose of more than 200 mg/dL in a nonstressed, ambulatory subject supports the diagnosis of Diabetes Mellitus. Hematocrit Auto (Bld) [Volum e fraction]Ordered By: Delano Mondragon on 11-04-2022 Hematocrit (Bld) [Volume fraction] 30.2 % 38.8-50.0 [facility] Hemoglobin [Mass/volume] in BloodOrdered By: Delano Mondragon on 11-04-2022 Hemoglobin (Bld) [Mass/Vol] 9.8 g/dL 13.0-17.0 [facility] Ketones Auto test strip (U) [Mass/Vol]Ordered By: Millie Burgos on 11-04-2022 Ketones (U) [Mass/Vol] Negative Negative [facility] - Chemistry and C hemistry - challengeOrdered By: Millie Burgos on 11-04-2022 Magnesium [Mass/Vol] 1.6 mg/dL 1.6-2.6 [facility] Natriuretic peptide B (Bld) [Mass/Vol] 27.0 pg/mL 5-100 [facility] - CoagulationOrde red By: Millie Burgos on 11-04-2022 PT Coag (PPP) [Time] 12.4 s 9.0-12.9 [facility] - UrinalysisOrder ed By: Millie Burgos on 11-04-2022 Hyaline casts LM Ql (Urine sed) 0-8 [LPF] 0-8 [facility] Leukocytes [#/volume] correc scott for nucleated erythrocytes in Blood by Automated counOrdered By: Delano Mondragon on 11-04-2022 WBC corrected for nucl RBC Auto (Bld) [#/Vol] 12.2 10*3/uL 4.1-10.5 [facility] Lymphocytes Auto (Bld) [#/Vo l]Ordered By: Delano Mondragon on 11-04-2022 Lymphocytes (Bld) [#/Vol] 1.5 10*3/uL 1.00-4.8 [facility] Lymphocytes/100 WBC Auto (Bl d)Ordered By: Delano Mondragon on 11-04-2022 Lymphocytes/100 WBC (Bld) 12.4 % . [facility] MCH Auto (RBC) [Entitic mass ]Ordered By: Delano Mondragon on 11-04-2022 MCH (RBC) [Entitic mass] 29.6 pg 27.5-35.2 [facility] MCHC Auto (RBC) [Mass/Vol]Or dered By: Delano Mondragon on 11-04-2022 MCHC (RBC) [Mass/Vol] 32.6 g/dL 32.5-35.6 [facility] MCV Auto (RBC) [Entitic vol] Ordered By: Delano Mondragon on 11-04-2022 MCV (RBC) [Entitic vol] 90.9 fL 83.5-101 [facility] Monocyte distribution width [Entitic volume] in Blood by AutomatedOrdered By: Delano Mondragon on 11-04-2022 Monocyte distribution width Auto (Bld) [Entitic vol] 17.32 % 0.00-20.00 [facility] Monocytes Auto (Bld) [#/Vol] Ordered By: Delano Mondragon on 11-04-2022 Monocytes (Bld) [#/Vol] 1.1 10*3/uL 0.0-0.8 [facility] Monocytes/100 WBC Auto (Bld) Ordered By: Delano Mondragon on 11-04-2022 Monocytes/100 WBC (Bld) 9.0 % . [facility] Neutrophils Auto (Bld) [#/Vo l]Ordered By: Delano Mondragon on 11-04-2022 Neutrophils (Bld) [#/Vol] 9.1 10*3/uL 1.8-7.7 [facility] Neutrophils/100 WBC Auto (Bl d)Ordered By: Delano Mondragon on 11-04-2022 Neutrophils/100 WBC (Bld) 74.8 % . [facility] Nitrite Test strip Ql (U)Ord ered By: Millie Burgos on 11-04-2022 Nitrite Ql (U) Negative Negative [facility] No Panel InformationOrdered By: Delano Mondragon on 11-04-2022 Estimated GFR () 13 mL/Min [facility] Comment on above: GFR estimated refere nce range: According to KDOQI guidelines, <60 ml/min/1.73m2 is sufficient to diagnose a patient with chronic kidney disease. Pharmacy Creatinine Clearance (Chem 22.99 [facility] Nucleated erythrocytes [Pres ence] in Blood by Automated countOrdered By: Delano Mondragon on 11-04-2022 Nucleated RBC Auto Ql (Bld) 0.0 /100{WBC} 0-0.5 [facility] Phosphate [Mass/volume] in S james or PlasmaOrdered By: Millie Burgos on 11-04-2022 Phosphate [Mass/Vol] 3.8 mg/dL 2.5-4.6 [facility] Platelet mean volume Auto (B ld) [Entitic vol]Ordered By: Delano Mondragon on 11-04-2022 Platelet mean volume (Bld) [Entitic vol] 6.7 fL 6.6-10.1 [facility] Platelet poor plasma interna tional normalized ratio (INR) by coagulation assay (relatOrdered By: Millie Burgos on 11-04-2022 INR Coag (PPP) [Relative time] 1.1 {INR} [facility] Comment on above: INR Therapeutic [...] 11-04-2022 Platelets (Bld) [#/Vol] 418 10*3/uL 150-450 [facility] Potassium [Moles/volume] in Serum or PlasmaOrdered By: Delano Mondragon on 11-04-2022 Potassium [Moles/Vol] 5.3 mmol/L 3.5-5.1 [facility] Protein Auto test strip (U) [Mass/Vol]Ordered By: Millie Burgos on 11-04-2022 Protein (U) [Mass/Vol] 300 mg/dL Negative Fi [facility] Protein [Mass/volume] in Ser um or PlasmaOrdered By: Delano Mondragon on 11-04-2022 Protein [Mass/Vol] 7.5 g/dL 6.1-7.9 [facility] RBC Auto (Bld) [#/Vol]Ordere d By: Delano Mondragon on 11-04-2022 RBC (Bld) [#/Vol] 3.32 10*6/uL 3.90-5.60 [facility] Serum or plasma alanine lawson otransferase measurement without P-5'-P (enzymatic activiOrdered By: Delano Mondragon on 11-04-2022 ALT No additional P-5'-P [Catalytic activity/Vol] 23 U/L 10-60 [facility] Serum or plasma albumin/glob ulin mass ratioOrdered By: Delano Mondragon on 11-04-2022 Albumin/Globulin [Mass ratio] 0.8 {ratio} [facility] Serum or plasma anion gap de terminationOrdered By: Delano Mondragon on 11-04-2022 Anion gap [Moles/Vol] 14.0 mmol/L 6.0-15.0 [facility] Sodium [Moles/volume] in Ser um or PlasmaOrdered By: Delano Mondragon on 11-04-2022 Sodium [Moles/Vol] 138 mmol/L 136-146 [facility] Specific gravity Auto test s trip (U) [Rel density]Ordered By: Millie Burgos on 11-04-2022 Specific gravity (U) [Rel density] 1.013 1.001-1.030 [facility] Squamous epithelial cells de tection in urine sediment by light microscopyOrdered By: Millie Burgos on 11-04-2022 Epithelial cells.squamous LM Ql (Urine sed) 0-1 [HPF] 0-2 [facility] Troponin I.cardiac [Mass/vol ume] in Serum or Plasma by High sensitivity methodOrdered By: Millie Burgos on 11-04-2022 Troponin I.cardiac High sensitivity method [Mass/Vol] 10 pg/mL 0-20 [facility] Urea nitrogen [Mass/volume] in Serum or PlasmaOrdered By: Delano Mondragon on 11-04-2022 Urea nitrogen [Mass/Vol] 52 mg/dL 9-23 [facility] Urine bacteria detection by automated methodOrdered By: Millie Burgos on 11-04-2022 Bacteria Auto Ql (U) None seen None Seen [facility] Urine clarity by refractomet ry automatedOrdered By: Millie Burgos on 11-04-2022 Clarity Refractometry automated (U) Clear Clear [facility] Urine glucose measurement by automated test strip (mass/volume)Ordered By: Millie Burgos on 11-04-2022 Glucose Auto test strip (U) [Mass/Vol] 100 mg/dL Normal [facility] Urine hemoglobin detection b y automated test stripOrdered By: Millie Burgos on 11-04-2022 Hemoglobin Auto test strip Ql (U) 1+ Negative [facility] Urine leukocyte esterase det ection by automated test stripOrdered By: Millie Burgos on 11-04-2022 Leukocyte esterase Auto test strip Ql (U) Negative Negative [facility] Urobilinogen Auto test strip (U) [Mass/Vol]Ordered By: Millie Burgos on 11-04-2022 Urobilinogen (U) [Mass/Vol] Normal mg/dL Normal [facility] WBC Auto (Bld) [#/Vol]Ordere d By: Delano Mondragon on 11-04-2022 WBC (Bld) [#/Vol] 12.2 10*3/uL 4.1-10.5 [facility] pH Auto test strip (U)Ordere d By: Millie Burgos on 11-04-2022 pH (U) 5.5 [pH] 5.0-9.0 [facility] Albumin [Mass/volume] in Ser um or PlasmaOrdered By: Ada Uriostegui on 11-02-2022 Albumin [Mass/Vol] 3.3 g/dL 3.2-5.5 [facility] Automated erythrocytes count in urine sediment (number/area)Ordered By: Ada Uriostegui on 11-02-2022 RBC Auto (Urine sed) [#/Area] 1-2 [HPF] 0-4 [facility] Automated leukocytes count i n urine sediment (number/area)Ordered By: Ada Uriostegui on 11-02-2022 WBC Auto (Urine sed) [#/Area] 0-1 [HPF] 0-4 [facility] Bilirubin Test strip Ql (U)O rdered By: Ada Uriostegui on 11-02-2022 Bilirubin Ql (U) Negative Negative [facility] CT biopsyOrdered By: Jonathan christensen on 11-02-2022 Transferrin [Mass/Vol] 270 mg/dL 180-380 [facility] Calcium [Mass/volume] in Ser um or PlasmaOrdered By: Ada Uriostegui on 11-02-2022 Calcium [Mass/Vol] 8.3 mg/dL 8.2-10.2 [facility] Carbon dioxide, total [Moles /volume] in Serum or PlasmaOrdered By: Ada Uriostegui on 11-02-2022 CO2 [Moles/Vol] 18.0 mmol/L 22.0-30.0 [facility] Chloride [Moles/volume] in S james or PlasmaOrdered By: Ada Uriostegui on 11-02-2022 Chloride [Moles/Vol] 112 mmol/L 95-114 [facility] Color Auto (U)Ordered By: Ab akhil Uriostegui on 11-02-2022 Color (U) Yellow Yellow [facility] Creatinine and Glomerular fi ltration rate.predicted panel (S/P/Bld)Ordered By: Ada Uriostegui on 11-02-2022 Creatinine [Mass/Vol] 5.16 mg/dL 0.64-1.27 [facility] Comment on above: Delta: 5.79 on 11/01 Erythrocyte distribution wid th Auto (RBC) [Ratio]Ordered By: Ada Uriostegui on 11-02-2022 Erythrocyte distribution width (RBC) [Ratio] 14.4 % 12.0-14.8 [facility] Estimated glomerular filtrat ion rate (GFR) non- AmericanOrdered By: Ada Uriostegui on 11-02-2022 GFR/1.73 sq M.predicted among non-blacks MDRD (S/P/Bld) [Vol rate/Area] 12 mL/Min [facility] Ferritin [Mass/volume] in Se rum or PlasmaOrdered By: Ada Uriostegui on 11-02-2022 Ferritin [Mass/Vol] 434.0 ng/mL 23.9-336.2 [facility] Glucose [Mass/volume] in Ser um or PlasmaOrdered By: Ada Uriostegui on 11-02-2022 Glucose [Mass/Vol] 165 mg/dL 70-100 [facility] Comment on above: ADA recommended refe rence rangeRandom Glucose Reference Range is dependent on time and content of last meal. Glucose of more than 200 mg/dL in a nonstressed, ambulatory subject supports the diagnosis of Diabetes Mellitus. Hematocrit Auto (Bld) [Volum e fraction]Ordered By: Ada Uriostegui on 11-02-2022 Hematocrit (Bld) [Volume fraction] 30.1 % 38.8-50.0 [facility] Hemoglobin [Mass/volume] in BloodOrdered By: Ada Uriostegui 11-02-2022 Hemoglobin (Bld) [Mass/Vol] 9.8 g/dL 13.0-17.0 [facility] Iron [Mass/volume] in Serum or PlasmaOrdered By: Ada Uriostegui 11-02-2022 Iron [Mass/Vol] 41 ug/dL 40-160 [facility] Iron binding capacity [Mass/ volume] in Serum or PlasmaOrdered By: Ada Uriostegui on 11-02-2022 Iron binding capacity [Mass/Vol] 378 ug/dL 255-450 [facility] Iron saturation [Mass Fracti on] in Serum or PlasmaOrdered By: Ada Uriostegui 11-02-2022 Iron saturation [Mass fraction] 10.8 % 20-50 [facility] Ketones Auto test strip (U) [Mass/Vol]Ordered By: Ada Uriostegui on 11-02-2022 Ketones (U) [Mass/Vol] Negative Negative [facility] - Chemistry and C hemistry - challengeOrdered By: Ada Uriostegui on 11-02-2022 Magnesium [Mass/Vol] 1.7 mg/dL 1.6-2.6 [facility] - UrinalysisOrder ed By: Ada Uriostegui on 11-02-2022 Hyaline casts LM Ql (Urine sed) None seen [LPF] 0-8 [facility] Leukocytes [#/volume] correc scott for nucleated erythrocytes in Blood by Automated counOrdered By: Ada Uriostegui on 11-02-2022 WBC corrected for nucl RBC Auto (Bld) [#/Vol] 10.9 10*3/uL 4.1-10.5 [facility] MCH Auto (RBC) [Entitic mass ]Ordered By: Ada Uriostegui on 11-02-2022 MCH (RBC) [Entitic mass] 29.8 pg 27.5-35.2 [facility] MCHC Auto (RBC) [Mass/Vol]Or dered By: Ada Uriostegui on 11-02-2022 MCHC (RBC) [Mass/Vol] 32.5 g/dL 32.5-35.6 [facility] MCV Auto (RBC) [Entitic vol] Ordered By: Ada Uriostegui on 11-02-2022 MCV (RBC) [Entitic vol] 91.5 fL 83.5-101 [facility] Nitrite Test strip Ql (U)Ord ered By: Ada Uriostegui on 11-02-2022 Nitrite Ql (U) Negative Negative [facility] No Panel InformationOrdered By: Ada Uriostegui on 11-02-2022 25-Hydroxy Vitamin D Total 12.4 ng/mL 30-100 [facility] Comment on above: VITAMIN D STATUS 25( [place])VITAMIN D RANGE (ng/mL) Deficient <20 Insufficient 20 to <30Sufficient 30 to 100Reference: Sophy MF,Glendy BARTH, Nitin RAMOS, et al. Evaluation,treatment, and prevention of vitamin D deficiency; an Endocrine Society clinical practice guideline. JCEM. 2010; 96(7):1911-30. Estimated GFR () 14 mL/Min [facility] Comment on above: GFR estimated refere nce range: According to KDOQI guidelines, <60 ml/min/1.73m2 is sufficient to diagnose a patient with chronic kidney disease. Pharmacy Creatinine Clearance (Chem N/A [facility] Parathyrin.intact [Mass/volu me] in Serum or PlasmaOrdered By: Ada Uriostegui on 11-02-2022 Parathyrin.intact [Mass/Vol] 204.7 pg/mL 12-88 [facility] Phosphate [Mass/volume] in S james or PlasmaOrdered By: Ada Uriostegui on 11-02-2022 Phosphate [Mass/Vol] 3.9 mg/dL 2.5-4.6 [facility] Platelet mean volume Auto (B ld) [Entitic vol]Ordered By: Ada Uriostegui on 11-02-2022 Platelet mean volume (Bld) [Entitic vol] 7.0 fL 6.6-10.1 [facility] Platelets Auto (Bld) [#/Vol] Ordered By: Ada Uriostegui on 11-02-2022 Platelets (Bld) [#/Vol] 323 10*3/uL 150-450 [facility] Potassium [Moles/volume] in Serum or PlasmaOrdered By: dAa Uriostegui on 11-02-2022 Potassium [Moles/Vol] 5.9 mmol/L 3.5-5.1 [facility] Protein Auto test strip (U) [Mass/Vol]Ordered By: Ada Uriostegui on 11-02-2022 Protein (U) [Mass/Vol] 300 mg/dL Negative [facility] RBC Auto (Bld) [#/Vol]Ordere d By: Ada Uriostegui on 11-02-2022 RBC (Bld) [#/Vol] 3.29 10*6/uL 3.90-5.60 [facility] Serum or plasma anion gap de terminationOrdered By: Ada Uriostegui on 11-02-2022 Anion gap [Moles/Vol] 12.9 mmol/L 6.0-15.0 [facility] Sodium [Moles/volume] in Ser um or PlasmaOrdered By: Ada Uriostegui on 11-02-2022 Sodium [Moles/Vol] 137 mmol/L 136-146 [facility] Specific gravity Auto test s trip (U) [Rel density]Ordered By: Ada Uriostegui on 11-02-2022 Specific gravity (U) [Rel density] 1.011 1.001-1.030 [facility] Squamous epithelial cells de tection in urine sediment by light microscopyOrdered By: Ada Uriostegui on 11-02-2022 Epithelial cells.squamous LM Ql (Urine sed) None seen [HPF] 0-2 [facility] Urate [Mass/volume] in Serum or PlasmaOrdered By: Ada Uriostegui on 11-02-2022 Urate [Mass/Vol] 5.3 mg/dL 2.6-7.2 [facility] Urea nitrogen [Mass/volume] in Serum or PlasmaOrdered By: Ada Uriostegui on 11-02-2022 Urea nitrogen [Mass/Vol] 58 mg/dL 9-23 [facility] Urine bacteria detection by automated methodOrdered By: Ada Uriostegui on 11-02-2022 Bacteria Auto Ql (U) None seen None Seen [facility] Urine clarity by refractomet ry automatedOrdered By: Ada Uriostegui on 11-02-2022 Clarity Refractometry automated (U) Clear Clear [facility] Urine glucose measurement by automated test strip (mass/volume)Ordered By: Ada Uriostegui on 11-02-2022 Glucose Auto test strip (U) [Mass/Vol] 250 mg/dL Normal [facility] Urine hemoglobin detection b y automated test stripOrdered By: Ada Uriostegui on 11-02-2022 Hemoglobin Auto test strip Ql (U) 1+ Negative [facility] Urine leukocyte esterase det ection by automated test stripOrdered By: Ada Uriostegui on 11-02-2022 Leukocyte esterase Auto test strip Ql (U) Negative Negative [facility] Urobilinogen Auto test strip (U) [Mass/Vol]Ordered By: Ada Uriostegui on 11-02-2022 Urobilinogen (U) [Mass/Vol] Normal mg/dL Normal [facility] pH Auto test strip (U)Ordere d By: Ada Uriostegui on 11-02-2022 pH (U) 5.5 [pH] 5.0-9.0 [facility] Activated partial thrombopla stin time (aPTT) in platelet poor plasma by coagulation aOrdered By: Mary Hill on 11-01-2022 aPTT Coag (PPP) [Time] 34.7 s 25.1-36.5 [facility] Alkaline phosphatase [Enzyma tic activity/volume] in Serum or PlasmaOrdered By: Mary Hill on 11-01-2022 ALP [Catalytic activity/Vol] 48 U/L 32-92 [facility] Aspartate aminotransferase [ Enzymatic activity/volume] in Serum or PlasmaOrdered By: Mary Hill on 11-01-2022 AST [Catalytic activity/Vol] 22 U/L 10-42 [facility] Basophils Auto (Bld) [#/Vol] Ordered By: Mary Hill on 11-01-2022 Basophils (Bld) [#/Vol] 0.1 10*3/uL 0.0-0.2 [facility] Basophils/100 WBC Auto (Bld) Ordered By: Mary Hill on 11-01-2022 Basophils/100 WBC (Bld) 0.5 % . [facility] Bilirubin.total [Mass/volume ] in Serum or PlasmaOrdered By: Mary Hill on 11-01-2022 Bilirubin [Mass/Vol] 0.4 mg/dL 0.3-1.2 [facility] Body fluid albumin measureme nt (mass/volume)Ordered By: Mary Hill on 11-01-2022 Albumin (Body fld) [Mass/Vol] 3.4 g/dL 3.2-5.5 [facility] Calcium [Mass/volume] in Ser um or PlasmaOrdered By: Mary Hill 11-01-2022 Calcium [Mass/Vol] 8.6 mg/dL 8.2-10.2 [facility] Carbon dioxide, total [Moles /volume] in Serum or PlasmaOrdered By: Mary Hill on 11-01-2022 CO2 [Moles/Vol] 16.4 mmol/L 22.0-30.0 [facility] Chloride [Moles/volume] in S james or PlasmaOrdered By: Mary Hill on 11-01-2022 Chloride [Moles/Vol] 109 mmol/L 95-114 [facility] Creatinine and Glomerular fi ltration rate.predicted panel (S/P/Bld)Ordered By: Mary Hill on 11-01-2022 Creatinine [Mass/Vol] 5.79 mg/dL 0.64-1.27 [facility] Eosinophils Auto (Bld) [#/Vo l]Ordered By: Mary Hill on 11-01-2022 Eosinophils (Bld) [#/Vol] 0.3 10*3/uL 0.0-0.45 [facility] Eosinophils/100 WBC Auto (Bl d)Ordered By: Mary Hill on 11-01-2022 Eosinophils/100 WBC (Bld) 2.8 % . [facility] Erythrocyte distribution wid th Auto (RBC) [Ratio]Ordered By: Mary Hill on 11-01-2022 Erythrocyte distribution width (RBC) [Ratio] 14.9 % 12.0-14.8 [facility] Estimated glomerular filtrat ion rate (GFR) non- AmericanOrdered By: Mary Hill on 11-01-2022 GFR/1.73 sq M.predicted among non-blacks MDRD (S/P/Bld) [Vol rate/Area] 10 mL/Min [facility] Fecal occult blood detection by immunochemistryOrdered By: Mary Hill on 11-01-2022 Hemoglobin.gastrointes tinal Ql (Stl) [facility] Hemoglobin.gastrointes tinal Ql (Stl) [facility] Globulin Calc (S) [Mass/Vol] Ordered By: Mary Hill on 11-01-2022 Globulin (S) [Mass/Vol] 4.0 g/dL [facility] Glucose Glucometer (BldC) [M ass/Vol]Ordered By: Mary Hill on 11-01-2022 Glucose [Mass/Vol] 55 mg/dL [facility] Comment on above: Random Glucose Refer ence Range is dependent on time and content of last meal. Glucose of more than 200 mg/dL in a nonstressed, ambulatory subject supports the diagnosis of Diabetes Mellitus. Glucose [Mass/volume] in Ser um or PlasmaOrdered By: Mary Hill on 11-01-2022 Glucose [Mass/Vol] 80 mg/dL 70-100 [facility] Comment on above: ADA recommended refe rence rangeRandom Glucose Reference Range is dependent on time and content of last meal. Glucose of more than 200 mg/dL in a nonstressed, ambulatory subject supports the diagnosis of Diabetes Mellitus. Hematocrit Auto (Bld) [Volum e fraction]Ordered By: Mary Hill on 11-01-2022 Hematocrit (Bld) [Volume fraction] 29.9 % 38.8-50.0 [facility] Hemoglobin [Mass/volume] in BloodOrdered By: Mary Hill on 11-01-2022 Hemoglobin (Bld) [Mass/Vol] 9.8 g/dL 13.0-17.0 [facility] - Chemistry and C hemistry - challengeOrdered By: Mary Hill on 11-01-2022 Natriuretic peptide B (Bld) [Mass/Vol] 32.0 pg/mL 5-100 [facility] - CoagulationOrde red By: Mary Hill on 11-01-2022 PT Coag (PPP) [Time] 12.3 s 9.0-12.9 [facility] Leukocytes [#/volume] correc scott for nucleated erythrocytes in Blood by Automated counOrdered By: Mary Hill on 11-01-2022 WBC corrected for nucl RBC Auto (Bld) [#/Vol] 12.0 10*3/uL 4.1-10.5 [facility] Lymphocytes Auto (Bld) [#/Vo l]Ordered By: Mary Hill on 11-01-2022 Lymphocytes (Bld) [#/Vol] 1.7 10*3/uL 1.00-4.8 [facility] Lymphocytes/100 WBC Auto (Bl d)Ordered By: Mary Hill on 11-01-2022 Lymphocytes/100 WBC (Bld) 14.6 % . [facility] MCH Auto (RBC) [Entitic mass ]Ordered By: Mary Hill on 11-01-2022 MCH (RBC) [Entitic mass] 29.6 pg 27.5-35.2 [facility] MCHC Auto (RBC) [Mass/Vol]Or dered By: Mary Hill on 11-01-2022 MCHC (RBC) [Mass/Vol] 32.7 g/dL 32.5-35.6 [facility] MCV Auto (RBC) [Entitic vol] Ordered By: Mary Hill on 11-01-2022 MCV (RBC) [Entitic vol] 90.6 fL 83.5-101 [facility] Monocyte %Ordered By: Jacki Hill on 11-01-2022 Monocyte % 23 umol/L 11-35 [facility] Monocyte distribution width [Entitic volume] in Blood by AutomatedOrdered By: Mary Hill on 11-01-2022 Monocyte distribution width Auto (Bld) [Entitic vol] 14.78 % 0.00-20.00 [facility] Monocytes Auto (Bld) [#/Vol] Ordered By: Mary Hill on 11-01-2022 Monocytes (Bld) [#/Vol] 1.1 10*3/uL 0.0-0.8 [facility] Monocytes/100 WBC Auto (Bld) Ordered By: Mary Hill on 11-01-2022 Monocytes/100 WBC (Bld) 9.6 % . [facility] Neutrophils Auto (Bld) [#/Vo l]Ordered By: Mary Hill on 11-01-2022 Neutrophils (Bld) [#/Vol] 8.7 10*3/uL 1.8-7.7 [facility] Neutrophils/100 WBC Auto (Bl d)Ordered By: Mary Hill on 11-01-2022 Neutrophils/100 WBC (Bld) 72.5 % . [facility] No Panel InformationOrdered By: Mary Hill on 11-01-2022 Bedside Glucose Comment See comment [facility] Comment on above: Glu2: WILL NOTIFY /RN Estimated GFR () 13 mL/Min [facility] Comment on above: GFR estimated refere nce range: According to KDOQI guidelines, <60 ml/min/1.73m2 is sufficient to diagnose a patient with chronic kidney disease. Pharmacy Creatinine Clearance (Chem 23.31 [facility] Nucleated erythrocytes [Pres ence] in Blood by Automated countOrdered By: Mary Hill on 11-01-2022 Nucleated RBC Auto Ql (Bld) 0.1 /100{WBC} 0-0.5 [facility] Platelet mean volume Auto (B ld) [Entitic vol]Ordered By: Mary Hill on 11-01-2022 Platelet mean volume (Bld) [Entitic vol] 7.0 fL 6.6-10.1 [facility] Platelet poor plasma interna tional normalized ratio (INR) by coagulation assay (relatOrdered By: Mary Hill on 11-01-2022 INR Coag (PPP) [Relative time] 1.1 {INR} [facility] Comment on above: INR Therapeutic [...] 11-01-2022 Platelets (Bld) [#/Vol] 347 10*3/uL 150-450 [facility] Potassium [Moles/volume] in Serum or PlasmaOrdered By: Mary Hill on 11-01-2022 Potassium [Moles/Vol] 4.9 mmol/L 3.5-5.1 [facility] Protein [Mass/volume] in Ser um or PlasmaOrdered By: Mary Hill on 11-01-2022 Protein [Mass/Vol] 7.4 g/dL 6.1-7.9 [facility] RBC Auto (Bld) [#/Vol]Ordere d By: Mary Hill on 11-01-2022 RBC (Bld) [#/Vol] 3.30 10*6/uL 3.90-5.60 [facility] Serum or plasma alanine lawson otransferase measurement without P-5'-P (enzymatic activiOrdered By: Mary Hill on 11-01-2022 ALT No additional P-5'-P [Catalytic activity/Vol] 28 U/L 10-60 [facility] Serum or plasma albumin/glob ulin mass ratioOrdered By: Mary Hill on 11-01-2022 Albumin/Globulin [Mass ratio] 0.9 {ratio} [facility] Serum or plasma anion gap de terminationOrdered By: Mary Hill on 11-01-2022 Anion gap [Moles/Vol] 17.5 mmol/L 6.0-15.0 [facility] Sodium [Moles/volume] in Ser um or PlasmaOrdered By: Mary Hill on 11-01-2022 Sodium [Moles/Vol] 138 mmol/L 136-146 [facility] Troponin I.cardiac [Mass/vol ume] in Serum or Plasma by High sensitivity methodOrdered By: Mary Hill on 11-01-2022 Troponin I.cardiac High sensitivity method [Mass/Vol] 7 pg/mL 0-20 [facility] Urea nitrogen [Mass/volume] in Serum or PlasmaOrdered By: Mary Hill on 11-01-2022 Urea nitrogen [Mass/Vol] 59 mg/dL 9-23 [facility] WBC Auto (Bld) [#/Vol]Ordere d By: Mary Hill on 11-01-2022 WBC (Bld) [#/Vol] 12.0 10*3/uL 4.1-10.5 [facility] VL Extremity Venous Duplex L ower Bilon [...] called to Shirley at Dr. Francois 12:35pm. [employer] Treater: Rea Tristan, RVT Radiologist Report Bilateral lower [...] Electronically Signed in Other Vendor System) Normal [facility] Albumin [Mass/volume] in Ser um or PlasmaOrdered By: Yolie Noe on 09-23-2022 Albumin [Mass/Vol] 3.3 g/dL 3.2-5.5 [facility] Basophils Auto (Bld) [#/Vol] Ordered By: Yolie Noe on 09-23-2022 Basophils (Bld) [#/Vol] 0.1 10*3/uL 0.0-0.2 [facility] Basophils/100 WBC Auto (Bld) Ordered By: Yolie Noe on 09-23-2022 Basophils/100 WBC (Bld) 0.8 % . [facility] Creatinine and Glomerular fi ltration rate.predicted panel (S/P/Bld)Ordered By: Yolie Noe on 09-23-2022 Creatinine [Mass/Vol] 5.82 mg/dL 0.64-1.27 [facility] Eosinophils Auto (Bld) [#/Vo l]Ordered By: Yolie Noe on 09-23-2022 Eosinophils (Bld) [#/Vol] 0.3 10*3/uL 0.0-0.45 [facility] Eosinophils/100 WBC Auto (Bl d)Ordered By: Yolie Noe on 09-23-2022 Eosinophils/100 WBC (Bld) 2.6 % . [facility] Erythrocyte distribution wid th Auto (RBC) [Ratio]Ordered By: Yolie Noe on 09-23-2022 Erythrocyte distribution width (RBC) [Ratio] 14.0 % 12.0-14.8 [facility] Estimated glomerular filtrat ion rate (GFR) non- AmericanOrdered By: Yolie Noe on 09-23-2022 GFR/1.73 sq M.predicted among non-blacks MDRD (S/P/Bld) [Vol rate/Area] 10 mL/Min [facility] Globulin Calc (S) [Mass/Vol] Ordered By: Yolie Noe on 09-23-2022 Globulin (S) [Mass/Vol] 3.6 g/dL [facility] Glucose Glucometer (BldC) [M ass/Vol]Ordered By: SVITLANA VILLANUEVA on 09-23-2022 Glucose [Mass/Vol] 151 mg/dL [facility] Comment on above: Random Glucose Refer ence Range is dependent on time and content of last meal. Glucose of more than 200 mg/dL in a nonstressed, ambulatory subject supports the diagnosis of Diabetes Mellitus. Hematocrit Auto (Bld) [Volum e fraction]Ordered By: Yolie Noe on 09-23-2022 Hematocrit (Bld) [Volume fraction] 33.0 % 38.8-50.0 [facility] Hemoglobin [Mass/volume] in BloodOrdered By: Yolie Noe on 09-23-2022 Hemoglobin (Bld) [Mass/Vol] 11.1 g/dL 13.0-17.0 [facility] Leukocytes [#/volume] correc scott for nucleated erythrocytes in Blood by Automated counOrdered By: Yolie Noe on 09-23-2022 WBC corrected for nucl RBC Auto (Bld) [#/Vol] 9.9 10*3/uL 4.1-10.5 [facility] Lymphocytes Auto (Bld) [#/Vo l]Ordered By: Yolie Newmangosia on 09-23-2022 Lymphocytes (Bld) [#/Vol] 2.7 10*3/uL 1.00-4.8 [facility] Lymphocytes/100 WBC Auto (Bl d)Ordered By: Yolie Hasmukh on 09-23-2022 Lymphocytes/100 WBC (Bld) 27.6 % . [facility] MCH Auto (RBC) [Entitic mass ]Ordered By: Yolie Newmangosia on 09-23-2022 MCH (RBC) [Entitic mass] 29.5 pg 27.5-35.2 [facility] MCHC Auto (RBC) [Mass/Vol]Or dered By: Yolie Hasmukh on 09-23-2022 MCHC (RBC) [Mass/Vol] 33.5 g/dL 32.5-35.6 [facility] MCV Auto (RBC) [Entitic vol] Ordered By: Yolie Noe on 09-23-2022 MCV (RBC) [Entitic vol] 88.2 fL 83.5-101 [facility] Monocyte distribution width [Entitic volume] in Blood by AutomatedOrdered By: Yolie Noe on 09-23-2022 Monocyte distribution width Auto (Bld) [Entitic vol] 16.48 % 0.00-20.00 [facility] Monocytes Auto (Bld) [#/Vol] Ordered By: Yolie Newmangosia on 09-23-2022 Monocytes (Bld) [#/Vol] 0.9 10*3/uL 0.0-0.8 [facility] Monocytes/100 WBC Auto (Bld) Ordered By: Yolie Hasmukh on 09-23-2022 Monocytes/100 WBC (Bld) 8.8 % . [facility] Neutrophils Auto (Bld) [#/Vo l]Ordered By: Yolie Hasmukh on 09-23-2022 Neutrophils (Bld) [#/Vol] 5.9 10*3/uL 1.8-7.7 [facility] Neutrophils/100 WBC Auto (Bl d)Ordered By: Yolie Noe on 09-23-2022 Neutrophils/100 WBC (Bld) 60.2 % . [facility] No Panel InformationOrdered By: Yolie Hasmukh on 09-23-2022 Estimated GFR () 12 mL/Min [facility] Comment on above: GFR estimated refere nce range: According to KDOQI guidelines, <60 ml/min/1.73m2 is sufficient to diagnose a patient with chronic kidney disease. Pharmacy Creatinine Clearance (Chem 22.77 [facility] Nucleated erythrocytes [Pres ence] in Blood by Automated countOrdered By: Yolie Noe on 09-23-2022 Nucleated RBC Auto Ql (Bld) 0.1 /100{WBC} 0-0.5 [facility] Platelet mean volume Auto (B ld) [Entitic vol]Ordered By: Yolie Noe on 09-23-2022 Platelet mean volume (Bld) [Entitic vol] 7.0 fL 6.6-10.1 [facility] Platelets Auto (Bld) [#/Vol] Ordered By: Yolie Noe on 09-23-2022 Platelets (Bld) [#/Vol] 420 10*3/uL 150-450 [facility] Protein [Mass/volume] in Ser um or PlasmaOrdered By: Yolie Noe on 09-23-2022 Protein [Mass/Vol] 6.9 g/dL 6.1-7.9 [facility] RBC Auto (Bld) [#/Vol]Ordere d By: Yolie Noe on 09-23-2022 RBC (Bld) [#/Vol] 3.74 10*6/uL 3.90-5.60 [facility] Serum or plasma alanine lawson otransferase measurement without P-5'-P (enzymatic activiOrdered By: Yolie Noe on 09-23-2022 ALT No additional P-5'-P [Catalytic activity/Vol] 19 U/L 10-60 [facility] Serum or plasma albumin/glob ulin mass ratioOrdered By: Yolie Noe on 09-23-2022 Albumin/Globulin [Mass ratio] 0.9 {ratio} [facility] Serum or plasma alkaline elliot sphatase measurement (enzymatic activity/volume)Ordered By: Yoliemarie Noe on 09-23-2022 ALP [Catalytic activity/Vol] 61 U/L 32-92 [facility] Serum or plasma anion gap de terminationOrdered By: Yolie Noe on 09-23-2022 Anion gap [Moles/Vol] 14.3 mmol/L 6.0-15.0 [facility] Serum or plasma aspartate am inotransferase measurement (enzymatic activity/volume)Ordered By: Yolie Noe on 09-23-2022 AST [Catalytic activity/Vol] 15 U/L 10-42 [facility] Serum or plasma calcium shante urement (mass/volume)Ordered By: Yolie Noe on 09-23-2022 Calcium [Mass/Vol] 8.6 mg/dL 8.2-10.2 [facility] Serum or plasma chloride alber surement (moles/volume)Ordered By: Yolie Noe on 09-23-2022 Chloride [Moles/Vol] 107 mmol/L 95-114 [facility] Serum or plasma glucose shante urement (mass/volume)Ordered By: Yolie Noe on 09-23-2022 Glucose [Mass/Vol] 150 mg/dL 70-100 [facility] Comment on above: ADA recommended refe rence rangeRandom Glucose Reference Range is dependent on time and content of last meal. Glucose of more than 200 mg/dL in a nonstressed, ambulatory subject supports the diagnosis of Diabetes Mellitus. Serum or plasma potassium me asurement (moles/volume)Ordered By: Yolie Noe on 09-23-2022 Potassium [Moles/Vol] 4.0 mmol/L 3.5-5.1 [facility] Serum or plasma sodium measu rement (moles/volume)Ordered By: Yolie Noe on 09-23-2022 Sodium [Moles/Vol] 139 mmol/L 136-146 [facility] Serum or plasma total biliru bin measurement (mass/volume)Ordered By: Yolie Noe on 09-23-2022 Bilirubin [Mass/Vol] 0.3 mg/dL 0.3-1.2 [facility] Serum or plasma total carbon dioxide measurement (moles/volume)Ordered By: Yoliemarie Noe on 09-23-2022 CO2 [Moles/Vol] 21.7 mmol/L 22.0-30.0 [facility] Serum or plasma urea nitroge n measurement (mass/volume)Ordered By: Yolie Trentgosia on 09-23-2022 Urea nitrogen [Mass/Vol] 70 mg/dL 9-23 [facility] WBC Auto (Bld) [#/Vol]Ordere d By: Yolie Trentgosia on 09-23-2022 WBC (Bld) [#/Vol] 9.9 10*3/uL 4.1-10.5 [facility] Albumin [Mass/volume] in Ser um or PlasmaOrdered By: Ada Uriostegui on 08-03-2022 Albumin [Mass/Vol] 3.4 g/dL 3.2-5.[address] [facility] [address] biopsyOrdered By: Jonathan christensen on 08-03-2022 Transferrin [Mass/Vol] 270 mg/dL 180-380 [facility] Creatinine and Glomerular fi ltration rate.predicted panel (S/P/Bld)Ordered By: Ada Uriostegui on 08-03-2022 Creatinine [Mass/Vol] 4.98 mg/dL 0.64-1.27 [facility] Erythrocyte distribution wid th Auto (RBC) [Ratio]Ordered By: Ada Uriostegui on 08-03-2022 Erythrocyte distribution width (RBC) [Ratio] 14.4 % 12.0-14.8 [facility] Estimated glomerular filtrat ion rate (GFR) non- AmericanOrdered By: Ada Uriostegui on 08-03-2022 GFR/1.73 sq M.predicted among non-blacks MDRD (S/P/Bld) [Vol rate/Area] 12 mL/Min [facility] Ferritin [Mass/volume] in Se rum or PlasmaOrdered By: Ada Uriostegui on 08-03-2022 Ferritin [Mass/Vol] 331.3 ng/mL 23.9-336.2 [facility] Hematocrit Auto (Bld) [Volum e fraction]Ordered By: Ada Uriostegui on 08-03-2022 Hematocrit (Bld) [Volume fraction] 31.6 % 38.8-50.0 [facility] Hemoglobin [Mass/volume] in BloodOrdered By: Ada Moody on 08-03-2022 Hemoglobin (Bld) [Mass/Vol] 10.3 g/dL 13.0-17.0 [facility] Iron [Mass/volume] in Serum or PlasmaOrdered By: Ada Moody on 08-03-2022 Iron [Mass/Vol] 90 ug/dL 40-160 [facility] Iron binding capacity [Mass/ volume] in Serum or PlasmaOrdered By: Ada Moody on 08-03-2022 Iron binding capacity [Mass/Vol] 378 ug/dL 255-450 [facility] Iron saturation [Mass Fracti on] in Serum or PlasmaOrdered By: Ada Moody on 08-03-2022 Iron saturation [Mass fraction] 23.0 % 20-50 [facility] MCH Auto (RBC) [Entitic mass ]Ordered By: Ada Uriostegui on 08-03-2022 MCH (RBC) [Entitic mass] 29.2 pg 27.5-35.2 [facility] MCHC Auto (RBC) [Mass/Vol]Or dered By: Ada Moody on 08-03-2022 MCHC (RBC) [Mass/Vol] 32.6 g/dL 32.5-35.6 [facility] MCV Auto (RBC) [Entitic vol] Ordered By: Ada Moody on 08-03-2022 MCV (RBC) [Entitic vol] 89.7 fL 83.5-101 [facility] No Panel InformationOrdered By: Ada Uriostegui on 08-03-2022 25-Hydroxy Vitamin D Total 14.6 ng/mL 30-100 [facility] Comment on above: VITAMIN D STATUS 25( [place])VITAMIN D RANGE (ng/mL) Deficient <20 Insufficient 20 to <30Sufficient 30 to 100Reference: Sophy MF,Glendy NC, Nitin RAMOS, et al. Evaluation,treatment, and prevention of vitamin D deficiency; an Endocrine Society clinical practice guideline. JCEM. 2010; 96(7):1911-30. Estimated GFR () 15 mL/Min [facility] Comment on above: GFR estimated refere nce range: According to KDOQI guidelines, <60 ml/min/1.73m2 is sufficient to diagnose a patient with chronic kidney disease. Pharmacy Creatinine Clearance (Chem N/A [facility] Phosphate [Mass/volume] in S james or PlasmaOrdered By: Ada Uriostegui on 08-03-2022 Phosphate [Mass/Vol] 3.1 mg/dL 2.5-4.6 [facility] Platelet mean volume Auto (B ld) [Entitic vol]Ordered By: Ada Uriostegui on 08-03-2022 Platelet mean volume (Bld) [Entitic vol] 7.2 fL 6.6-10.1 [facility] Platelets Auto (Bld) [#/Vol] Ordered By: Ada Uriostegui on 08-03-2022 Platelets (Bld) [#/Vol] 390 10*3/uL 150-450 [facility] RBC Auto (Bld) [#/Vol]Ordere d By: Ada Uriostegui on 08-03-2022 RBC (Bld) [#/Vol] 3.52 10*6/uL 3.90-5.60 [facility] Serum or plasma anion gap de terminationOrdered By: Ada Uriostegui on 08-03-2022 Anion gap [Moles/Vol] 14.6 mmol/L 6.0-15.0 [facility] Serum or plasma calcium shante urement (mass/volume)Ordered By: Ada Uriostegui on 08-03-2022 Calcium [Mass/Vol] 9.0 mg/dL 8.2-10.2 [facility] Serum or plasma chloride alber surement (moles/volume)Ordered By: Ada Uriostegui on 08-03-2022 Chloride [Moles/Vol] 105 mmol/L 95-114 [facility] Serum or plasma glucose shante urement (mass/volume)Ordered By: Ada Uriostegui on 08-03-2022 Glucose [Mass/Vol] 188 mg/dL 70-100 [facility] Comment on above: ADA recommended refe rence rangeRandom Glucose Reference Range is dependent on time and content of last meal. Glucose of more than 200 mg/dL in a nonstressed, ambulatory subject supports the diagnosis of Diabetes Mellitus. Serum or plasma intact parat hyroid hormone measurement (mass/volume)Ordered By: Ada Uriostegui on 08-03-2022 Parathyrin.intact [Mass/Vol] 151.8 pg/mL [facility] Serum or plasma potassium me asurement (moles/volume)Ordered By: Ada Uriostegui on 08-03-2022 Potassium [Moles/Vol] 5.1 mmol/L 3.5-5.1 [facility] Serum or plasma sodium measu rement (moles/volume)Ordered By: Ada Uriostegui on 08-03-2022 Sodium [Moles/Vol] 139 mmol/L 136-146 [facility] Serum or plasma total carbon dioxide measurement (moles/volume)Ordered By: Ada Uriostegui on 08-03-2022 CO2 [Moles/Vol] 24.5 mmol/L 22.0-30.0 [facility] Serum or plasma urea nitroge n measurement (mass/volume)Ordered By: Ada Uriostegui on 08-03-2022 Urea nitrogen [Mass/Vol] 60 mg/dL 05-29 [facility] Serum or plasma uric acid me asurement (mass/volume)Ordered By: Ada Uriostegui on 08-03-2022 Urate [Mass/Vol] 5.6 mg/dL 2.6-7.2 [facility] WBC Auto (Bld) [#/Vol]Ordere d By: Ada Uriostegui on 08-03-2022 WBC (Bld) [#/Vol] 9.5 10*3/uL 4.1-10.5 [facility] Basophils Auto (Bld) [#/Vol] Ordered By: Yosef Castillo on 07-29-2022 Basophils (Bld) [#/Vol] 0.1 10*3/uL 0.0-0.2 [facility] Basophils/100 WBC Auto (Bld) Ordered By: Yosef Castillo on 07-29-2022 Basophils/100 WBC (Bld) 0.9 % . [facility] Beta-hydroxybutyric acid alber surementOrdered By: Yosef Castillo on 07-29-2022 Beta hydroxybutyrate [Mass/Vol] 0.25 mmol/L 0.05-0.27 [facility] Body fluid albumin measureme nt (mass/volume)Ordered By: Yosef Castillo on 07-29-2022 Albumin (Body fld) [Mass/Vol] 3.6 g/dL 3.2-5.5 [facility] Creatinine and Glomerular fi ltration rate.predicted panel (S/P/Bld)Ordered By: Yosef Castillo on 07-29-2022 Creatinine [Mass/Vol] 5.97 mg/dL 0.64-1.27 [facility] Eosinophils Auto (Bld) [#/Vo l]Ordered By: Yosef Castillo on 07-29-2022 Eosinophils (Bld) [#/Vol] 0.3 10*3/uL 0.0-0.45 [facility] Eosinophils/100 WBC Auto (Bl d)Ordered By: Yosef Castillo on 07-29-2022 Eosinophils/100 WBC (Bld) 2.9 % . [facility] Erythrocyte distribution wid th Auto (RBC) [Ratio]Ordered By: Yosef Castillo on 07-29-2022 Erythrocyte distribution width (RBC) [Ratio] 14.1 % 12.0-14.8 [facility] Estimated glomerular filtrat ion rate (GFR) non- AmericanOrdered By: Yosef Castillo on 07-29-2022 GFR/1.73 sq M.predicted among non-blacks MDRD (S/P/Bld) [Vol rate/Area] 10 mL/Min [facility] Globulin Calc (S) [Mass/Vol] Ordered By: Yosef Castillo on 07-29-2022 Globulin (S) [Mass/Vol] 3.3 g/dL [facility] Glucose Glucometer (BldC) [M ass/Vol]Ordered By: Yosef Castillo on 07-29-2022 Glucose [Mass/Vol] 266 mg/dL [facility] Comment on above: Random Glucose Refer ence Range is dependent on time and content of last meal. Glucose of more than 200 mg/dL in a nonstressed, ambulatory subject supports the diagnosis of Diabetes Mellitus. Hematocrit Auto (Bld) [Volum e fraction]Ordered By: Yosef Castillo on 07-29-2022 Hematocrit (Bld) [Volume fraction] 32.7 % 38.8-50.0 [facility] Hemoglobin [Mass/volume] in BloodOrdered By: Yosef Castillo on 07-29-2022 Hemoglobin (Bld) [Mass/Vol] 10.8 g/dL 13.0-17.0 [facility] - Chemistry and C hemistry - challengeOrdered By: Yosef Castillo on 07-29-2022 CO2 [Moles/Vol] 22.9 mmol/L 24.0-29.0 [facility] HCO3 (Bld) [Moles/Vol] 21.7 mmol/L 23.0-29.0 [facility] Lipase [Catalytic activity/Vol] 38.0 U/L 22-51 [facility] - Hematology and Cell countsOrdered By: Yosef Castillo on 07-29-2022 Nucleated RBC/100 WBC (Bld) [Ratio] 0.0 % 0-0.5 [facility] Leukocytes [#/volume] in Blo od by Automated countOrdered By: Yosef Castillo on 07-29-2022 WBC (Bld) [#/Vol] 11.0 10*3/uL 4.5-11.0 [facility] Lymphocytes Auto (Bld) [#/Vo l]Ordered By: Yosef Castillo on 07-29-2022 Lymphocytes (Bld) [#/Vol] 2.0 10*3/uL 1.00-4.8 [facility] Lymphocytes/100 WBC Auto (Bl d)Ordered By: Yosef Castillo on 07-29-2022 Lymphocytes/100 WBC (Bld) 17.9 % . [facility] MCH Auto (RBC) [Entitic mass ]Ordered By: Yosef Castillo on 07-29-2022 MCH (RBC) [Entitic mass] 29.4 pg 27.5-35.2 [facility] MCHC Auto (RBC) [Mass/Vol]Or dered By: Yosef Castillo on 07-29-2022 MCHC (RBC) [Mass/Vol] 33.0 g/dL 32.5-35.6 [facility] MCV Auto (RBC) [Entitic vol] Ordered By: Yosef Castillo on 07-29-2022 MCV (RBC) [Entitic vol] 88.8 fL 83.5-101 [facility] Monocytes Auto (Bld) [#/Vol] Ordered By: Yosef Castillo on 07-29-2022 Monocytes (Bld) [#/Vol] 0.7 10*3/uL 0.0-0.8 [facility] Monocytes/100 WBC Auto (Bld) Ordered By: Yosef Castillo on 07-29-2022 Monocytes/100 WBC (Bld) 5.9 % . [facility] Neutrophils Auto (Bld) [#/Vo l]Ordered By: Yosef Castillo on 07-29-2022 Neutrophils (Bld) [#/Vol] 8.0 10*3/uL 1.8-7.7 [facility] Neutrophils/100 WBC Auto (Bl d)Ordered By: Yosef Catsillo on 07-29-2022 Neutrophils/100 WBC (Bld) 72.4 % . [facility] No Panel InformationOrdered By: Yosef Castillo on 07-29-2022 Blood Gas Critical Value See comment [facility] Comment on above: Critical Value metz d on: 07/29/2022 at 00:48 Blood Gas Sample Site Venous [facility] FiO2 21 % [facility] Venous Blood Base Excess -3.7 mmol/L -3.0-3.0 [facility] Venous Blood Oxygen Content 5.6 mmol/L 6.6-9.7 [facility] Venous Blood Oxygen Saturation 79.1 % 73.0-76.0 [facility] Venous Blood Partial Pressure CO2 40.4 mm[Hg] 38.0-50.0 [facility] Venous Blood Partial Pressure O2 41.6 mm[Hg] 35.0-45.0 [facility] Venous Blood pH 7.35 7.32-7.43 [facility] Estimated GFR () 12 mL/Min [facility] Comment on above: GFR estimated refere nce range: According to KDOQI guidelines, <60 ml/min/1.73m2 is sufficient to diagnose a patient with chronic kidney disease. Pharmacy Creatinine Clearance (Chem 21.83 [facility] Platelet mean volume Auto (B ld) [Entitic vol]Ordered By: Yosef Castillo on 07-29-2022 Platelet mean volume (Bld) [Entitic vol] 7.6 fL 6.6-10.1 [facility] Platelets Auto (Bld) [#/Vol] Ordered By: Yosef Castillo on 07-29-2022 Platelets (Bld) [#/Vol] 382 10*3/uL 150-450 [facility] Protein [Mass/volume] in Ser um or PlasmaOrdered By: Yosef Castillo on 07-29-2022 Protein [Mass/Vol] 6.9 g/dL 6.1-7.9 [facility] RBC Auto (Bld) [#/Vol]Ordere d By: Yosef Castillo on 07-29-2022 RBC (Bld) [#/Vol] 3.68 10*6/uL 3.90-5.60 [facility] Serum or plasma alanine lawson otransferase measurement without P-5'-P (enzymatic activiOrdered By: Yosef Castillo on 07-29-2022 ALT No additional P-5'-P [Catalytic activity/Vol] 17 U/L [facility] Serum or plasma albumin/glob ulin mass ratioOrdered By: Yosef Castillo on 07-29-2022 Albumin/Globulin [Mass ratio] 1.1 {ratio} [facility] Serum or plasma alkaline elliot sphatase measurement (enzymatic activity/volume)Ordered By: Yosef Castillo on 07-29-2022 ALP [Catalytic activity/Vol] 52 U/L 3292 [facility] Serum or plasma anion gap de terminationOrdered By: Yosef Castillo on 07-29-2022 Anion gap [Moles/Vol] TNP [facility] Comment on above: Test not performed Serum or plasma aspartate am inotransferase measurement (enzymatic activity/volume)Ordered By: Yosef Castillo on 07-29-2022 AST [Catalytic activity/Vol] 26 U/L [facility] Serum or plasma calcium shante urement (mass/volume)Ordered By: Yosef Castillo on 07-29-2022 Calcium [Mass/Vol] 8.9 mg/dL 8.2-10.2 [facility] Serum or plasma chloride alber surement (moles/volume)Ordered By: Yosef Castillo on 07-29-2022 Chloride [Moles/Vol] 105 mmol/L 95-114 [facility] Serum or plasma glucose shante urement (mass/volume)Ordered By: Yosef Castillo on 07-29-2022 Glucose [Mass/Vol] 233 mg/dL 70-100 [facility] Comment on above: ADA recommended refe rence rangeRandom Glucose Reference Range is dependent on time and content of last meal. Glucose of more than 200 mg/dL in a nonstressed, ambulatory subject supports the diagnosis of Diabetes Mellitus. Serum or plasma potassium me asurement (moles/volume)Ordered By: Yosef Castillo on 07-29-2022 Potassium [Moles/Vol] 4.4 mmol/L 3.5-5.1 [facility] Serum or plasma sodium measu rement (moles/volume)Ordered By: Yosef Castillo on 07-29-2022 Sodium [Moles/Vol] 142 mmol/L 136-146 [facility] Serum or plasma total biliru bin measurement (mass/volume)Ordered By: Yosfe Castillo on 07-29-2022 Bilirubin [Mass/Vol] 0.7 mg/dL 0.3-1.2 [facility] Serum or plasma total carbon dioxide measurement (moles/volume)Ordered By: Yosef Castillo on 07-29-2022 CO2 [Moles/Vol] 21.9 mmol/L 22.0-30.0 [facility] Serum or plasma urea nitroge n measurement (mass/volume)Ordered By: Yosef Castillo on 07-29-2022 Urea nitrogen [Mass/Vol] 74 mg/dL 05-29 [facility] TSH DL <= 0.005 mIU/L QnOrde red By: Yosef Castillo on 07-29-2022 TSH Qn 2.69 m[IU]/L 0.45-5.33 [facility] Thyroxine (T4) free [Mass/vo lume] in Serum or PlasmaOrdered By: Yosef Castillo on 07-29-2022 Free T4 [Mass/Vol] 0.78 ng/dL 0.61-1.12 [facility] Troponin I.cardiac [Mass/vol ume] in Serum or Plasma by High sensitivity methodOrdered By: Yosef Castillo on 07-29-2022 Troponin I.cardiac High sensitivity method [Mass/Vol] 7 pg/mL 0-20 [facility] C [place] 07-20-2022 C Wound [...] <=1 V Vancomycin S 1 V Normal [facility] Comment on above: Performed By: #### W DC #### [facility] (DEFAULT) [address] [place] [address] [facility] [address] [place] [address] No Panel Informationon 07-17 Body mass index (BMI) [Percentile] Per age and sex 0.1 {percentile} Invalid Interpretation Code [facility] [employer] [id number] Per age and sex 0.1 {percentile} Invalid Interpretation Code [facility] Body fluid albumin measureme nt (mass/volume)Ordered By: Ada Uriostegui on 06-27-2022 Albumin (Body fld) [Mass/Vol] 3.6 g/dL 3.2-5.[address] [facility] [address] biopsyOrdered By: Jonathan christensen on 06-27-2022 Transferrin [Mass/Vol] 286 mg/dL 180-380 [facility] Creatinine and Glomerular fi ltration rate.predicted panel (S/P/Bld)Ordered By: Ada Uriostegui on 06-27-2022 Creatinine [Mass/Vol] 4.86 mg/dL 0.64-1.27 [facility] Erythrocyte distribution wid th Auto (RBC) [Ratio]Ordered By: Ada Uriostegui on 06-27-2022 Erythrocyte distribution width (RBC) [Ratio] 14.0 % 12.0-14.8 [facility] Estimated glomerular filtrat ion rate (GFR) non- AmericanOrdered By: Ada Uriostegui on 06-27-2022 GFR/1.73 sq M.predicted among non-blacks MDRD (S/P/Bld) [Vol rate/Area] 13 mL/Min [facility] Ferritin [Mass/volume] in Se rum or PlasmaOrdered By: Ada Uriostegui on 06-27-2022 Ferritin [Mass/Vol] 383.6 ng/mL 23.9-336.2 [facility] Hematocrit Auto (Bld) [Volum e fraction]Ordered By: Ada Moody on 06-27-2022 Hematocrit (Bld) [Volume fraction] 37.2 % 38.8-50.0 [facility] Hemoglobin [Mass/volume] in BloodOrdered By: Ada Moody on 06-27-2022 Hemoglobin (Bld) [Mass/Vol] 12.1 g/dL 13.0-17.0 [facility] Iron [Mass/volume] in Serum or PlasmaOrdered By: Ada Moody on 06-27-2022 Iron [Mass/Vol] 70 ug/dL 40-160 [facility] Iron binding capacity [Mass/ volume] in Serum or PlasmaOrdered By: Ada Uriostegui on 06-27-2022 Iron binding capacity [Mass/Vol] 400 ug/dL 255-450 [facility] Iron saturation [Mass Fracti on] in Serum or PlasmaOrdered By: Ada Uriostegui on 06-27-2022 Iron saturation [Mass fraction] 17.0 % 20-50 [facility] - Chemistry and C hemistry - challengeOrdered By: Ada Uriostegui on 06-27-2022 Magnesium [Mass/Vol] 1.9 mg/dL 1.6-2.6 [facility] MCH Auto (RBC) [Entitic mass ]Ordered By: Ada Uriostegui on 06-27-2022 MCH (RBC) [Entitic mass] 29.2 pg 27.5-35.2 [facility] MCHC Auto (RBC) [Mass/Vol]Or dered By: Ada Uriostegui on 06-27-2022 MCHC (RBC) [Mass/Vol] 32.6 g/dL 32.5-35.6 [facility] MCV Auto (RBC) [Entitic vol] Ordered By: Ada Uriostegui on 06-27-2022 MCV (RBC) [Entitic vol] 89.7 fL 83.5-101 [facility] No Panel InformationOrdered By: Ada Uriostegui on 06-27-2022 25-Hydroxy Vitamin D Total 13.3 ng/mL 30-100 [facility] Comment on above: VITAMIN D STATUS 25( [place])VITAMIN D RANGE (ng/mL) Deficient <20 Insufficient 20 to <30Sufficient 30 to 100Reference: Sophy MF,Glendy NC, Nitin RAMOS, et al. Evaluation,treatment, and prevention of vitamin D deficiency; an Endocrine Society clinical practice guideline. JCEM. 2010; 96(7):1911-30. Estimated GFR () 15 mL/Min [facility] Comment on above: GFR estimated refere nce range: According to KDOQI guidelines, <60 ml/min/1.73m2 is sufficient to diagnose a patient with chronic kidney disease. Pharmacy Creatinine Clearance (Chem N/A [facility] Phosphate [Mass/volume] in S james or PlasmaOrdered By: Ada Uriostegui on 06-27-2022 Phosphate [Mass/Vol] 4.1 mg/dL 2.5-4.6 [facility] Platelet mean volume Auto (B ld) [Entitic vol]Ordered By: Ada Uriostegui on 06-27-2022 Platelet mean volume (Bld) [Entitic vol] 7.3 fL 6.6-10.1 [facility] Platelets Auto (Bld) [#/Vol] Ordered By: Ada Uriostegui on 06-27-2022 Platelets (Bld) [#/Vol] 454 10*3/uL 150-450 [facility] RBC Auto (Bld) [#/Vol]Ordere d By: Ada Uriostegui on 06-27-2022 RBC (Bld) [#/Vol] 4.15 10*6/uL 3.90-5.60 [facility] Serum or plasma anion gap de terminationOrdered By: Ada Uriostegui on 06-27-2022 Anion gap [Moles/Vol] 15.2 mmol/L 6.0-15.0 [facility] Serum or plasma calcium shante urement (mass/volume)Ordered By: Ada Uriostegui on 06-27-2022 Calcium [Mass/Vol] 8.9 mg/dL 8.2-10.2 [facility] Serum or plasma chloride alber surement (moles/volume)Ordered By: Ada Uriostegui on 06-27-2022 Chloride [Moles/Vol] 103 mmol/L 95-114 [facility] Serum or plasma glucose shante urement (mass/volume)Ordered By: Ada Uriostegui on 06-27-2022 Glucose [Mass/Vol] 115 mg/dL 70-100 [facility] Comment on above: ADA recommended refe rence rangeRandom Glucose Reference Range is dependent on time and content of last meal. Glucose of more than 200 mg/dL in a nonstressed, ambulatory subject supports the diagnosis of Diabetes Mellitus. Serum or plasma intact parat hyroid hormone measurement (mass/volume)Ordered By: Ada Uriostegui on 06-27-2022 Parathyrin.intact [Mass/Vol] 168.5 pg/mL [facility] Serum or plasma potassium me asurement (moles/volume)Ordered By: Ada Uriostegui on 06-27-2022 Potassium [Moles/Vol] 4.6 mmol/L 3.5-5.1 [facility] Serum or plasma sodium measu rement (moles/volume)Ordered By: Ada Uriostegui on 06-27-2022 Sodium [Moles/Vol] 137 mmol/L 136-146 [facility] Serum or plasma total carbon dioxide measurement (moles/volume)Ordered By: Ada Uriostegui on 06-27-2022 CO2 [Moles/Vol] 23.4 mmol/L 22.0-30.0 [facility] Serum or plasma urea nitroge n measurement (mass/volume)Ordered By: Ada Uriostegui on 06-27-2022 Urea nitrogen [Mass/Vol] 52 mg/dL 05-29 [facility] WBC Auto (Bld) [#/Vol]Ordere d By: Ada Uriostegui on 06-27-2022 WBC (Bld) [#/Vol] 9.4 10*3/uL 4.1-10.5 [facility] Covid-19 PCR (CVDTBH)on 06-06 SARS-CoV-2 (COVID-19) RNA SHAY+probe Ql (Unsp spec) Not detected Normal NOT DETECTED [facility] Comment on above: Result Comment: This test is not yet approved or cleared by the [place] FDA. When there are no FDA-approved or cleared tests available, and other criteria are met, FDA can make tests available under an emergency access mechanism called an Emergency Use Authorization (EUA). The EUA for this test is supported by the [place] Tender of Health and Human Service's (HHS's) declaration [...] consistent with SARS-CoV-2. Performed By: #### C [facility] #### [facility] [address] [address] [address] Monroe Winn Blood hemoglobin measurement (mass/volume)Ordered By: Ada Uriostegui on 05-16-2022 Hemoglobin (Bld) [Mass/Vol] 11.2 g/dL 13.0-17.0 [facility] Body fluid albumin measureme nt (mass/volume)Ordered By: Ada Uriostegui on 05-16-2022 Albumin (Body fld) [Mass/Vol] 3.5 g/dL 3.2-5.[address] [facility] [address] biopsyOrdered By: Jonathan christensen on 05-16-2022 Transferrin [Mass/Vol] 300 mg/dL 180-380 [facility] Creatinine and Glomerular fi ltration rate.predicted panel (S/P/Bld)Ordered By: Ada Uriostegui on 05-16-2022 Creatinine [Mass/Vol] 5.05 mg/dL 0.64-1.27 [facility] Erythrocyte distribution wid th Auto (RBC) [Ratio]Ordered By: Ada Uriostegui on 05-16-2022 Erythrocyte distribution width (RBC) [Ratio] 13.7 % 12.0-14.8 [facility] Estimated glomerular filtrat ion rate (GFR) non- AmericanOrdered By: Ada Uriostegui on 05-16-2022 GFR/1.73 sq M.predicted among non-blacks MDRD (S/P/Bld) [Vol rate/Area] 12 mL/Min [facility] Ferritin [Mass/volume] in Se rum or PlasmaOrdered By: Ada Uriostegui on 05-16-2022 Ferritin [Mass/Vol] 447.8 ng/mL 23.9-336.2 [facility] Hematocrit Auto (Bld) [Volum e fraction]Ordered By: Ada Uriostegui on 05-16-2022 Hematocrit (Bld) [Volume fraction] 33.5 % 38.8-50.0 [facility] Iron [Mass/volume] in Serum or PlasmaOrdered By: Ada Uriostegui on 05-16-2022 Iron [Mass/Vol] 73 ug/dL 40-160 [facility] Iron binding capacity [Mass/ volume] in Serum or PlasmaOrdered By: Ada Uriostegui on 05-16-2022 Iron binding capacity [Mass/Vol] 420 ug/dL 255-450 [facility] Iron saturation [Mass Fracti on] in Serum or PlasmaOrdered By: Ada Uriostegui on 05-16-2022 Iron saturation [Mass fraction] 17.0 % 20-50 [facility] - Chemistry and C hemistry - challengeOrdered By: Ada Uriostegui on 05-16-2022 Magnesium [Mass/Vol] 2.0 mg/dL 1.6-2.6 [facility] MCH Auto (RBC) [Entitic mass ]Ordered By: Ada Uriostegui on 05-16-2022 MCH (RBC) [Entitic mass] 29.8 pg 27.5-35.2 [facility] MCHC Auto (RBC) [Mass/Vol]Or dered By: Ada Uriostegui on 05-16-2022 MCHC (RBC) [Mass/Vol] 33.4 g/dL 32.5-35.6 [facility] MCV Auto (RBC) [Entitic vol] Ordered By: Ada Uriostegui on 05-16-2022 MCV (RBC) [Entitic vol] 89.1 fL 83.5-101 [facility] No Panel InformationOrdered By: Ada Uriostegui on 05-16-2022 25-Hydroxy Vitamin D Total 13.9 ng/mL 30-100 [facility] Comment on above: VITAMIN D [...] 2010; 96(7):1911-30. Estimated GFR () 15 mL/Min [facility] Comment on above: GFR estimated refere nce range: According to KDOQI guidelines, <60 ml/min/1.73m2 is sufficient to diagnose a patient with chronic kidney disease. Pharmacy Creatinine Clearance (Chem N/A [facility] Phosphate [Mass/volume] in S james or PlasmaOrdered By: Ada Uriostegui on 05-16-2022 Phosphate [Mass/Vol] 3.9 mg/dL 2.5-4.6 [facility] Platelet mean volume Auto (B ld) [Entitic vol]Ordered By: Ada Uriostegui on 05-16-2022 Platelet mean volume (Bld) [Entitic vol] 6.9 fL 6.6-10.1 [facility] Platelets Auto (Bld) [#/Vol] Ordered By: Ada Uriostegui on 05-16-2022 Platelets (Bld) [#/Vol] 496 10*3/uL 150-450 [facility] RBC Auto (Bld) [#/Vol]Ordere d By: Ada Moody on 05-16-2022 RBC (Bld) [#/Vol] 3.76 10*6/uL 3.90-5.60 [facility] Serum or plasma anion gap de terminationOrdered By: Ada Uriostegui on 05-16-2022 Anion gap [Moles/Vol] 13.7 mmol/L 6.0-15.0 [facility] Serum or plasma calcium shante urement (mass/volume)Ordered By: Ada Moody on 05-16-2022 Calcium [Mass/Vol] 9.2 mg/dL 8.2-10.2 [facility] Serum or plasma chloride alber surement (moles/volume)Ordered By: Ada Uriostegui on 05-16-2022 Chloride [Moles/Vol] 105 mmol/L 95-114 [facility] Serum or plasma glucose shante urement (mass/volume)Ordered By: Ada Uriosteugi on 05-16-2022 Glucose [Mass/Vol] 177 mg/dL 70-100 [facility] Comment on above: ADA recommended refe [...] Uriostegui on 05-16-2022 Parathyrin.intact [Mass/Vol] 121.3 pg/mL [facility] Serum or plasma potassium me asurement (moles/volume)Ordered By: Ada Uriostegui on 05-16-2022 Potassium [Moles/Vol] 4.9 mmol/L 3.5-5.1 [facility] Serum or plasma sodium measu rement (moles/volume)Ordered By: Ada Uriostegui on 05-16-2022 Sodium [Moles/Vol] 137 mmol/L 136-146 [facility] Serum or plasma total carbon dioxide measurement (moles/volume)Ordered By: Ada Uriostegui on 05-16-2022 CO2 [Moles/Vol] 23.2 mmol/L 22.0-30.0 [facility] Serum or plasma urea nitroge n measurement (mass/volume)Ordered By: Ada Uriostegui on 05-16-2022 Urea nitrogen [Mass/Vol] 54 mg/dL 05-29 [facility] WBC Auto (Bld) [#/Vol]Ordere d By: Ada Uriostegui on 05-16-2022 WBC (Bld) [#/Vol] 9.8 10*3/uL 4.1-10.5 [facility] SINGLE ANTIGEN CLASS 1on METHOD Class I Single Antigen Normal [facility] Comment on above: Order Comment: Some [...] to frequency. Performed By: #### [id number], [id number], 35855, 89340, 14632, 69115 #### [facility] [address] SPECIFICITY Normal [facility] Comment on above: Order Comment: Some [...] 34 B:76 Performed By: #### 4 1533, 93562, 39458, 39966, 73697, 58021 #### [facility] [address] SINGLE ANTIGEN CLASS 2on COMMENTS Normal [facility] Comment on above: Order Comment: Some [...] Specificites Found Performed By: #### 4 [id number], 67320, 94230, 79984, 00987, 00655 #### [facility] [address] Result Comment: Clas s I Antigen Microbeads Potential specificites added to the watch list. METHOD Class II Single Antigen Normal [facility] Comment on above: Order Comment: Some [...] to frequency. Performed By: #### 4 1533, 47409, 23579, 33786, 92695, 69865 #### [facility] [address] [facility]. [address] SIGNED BY Normal [facility] Comment on above: Order Comment: Some [...] to frequency. Result Comment: Delano Nuno, MS,CHT(RAJESH),MT(ASCP) Before And After School Daycare Worker, Transplant Immunology Performed By: #### 4 1533, 58747, 32554, 34808, 95712, 17862 #### [facility] [address] BLOOD TYPE AND RHon 04-07-20 22 ABO INTERPRETATION A [facility] Comment on above: Performed By: #### 4 1533, 33744, 52403, 96520, 38379, 93566 #### [facility] [address] [place] [address], [facility] RH INTERPRETATION Positive [facility] Comment on above: Performed By: #### 4 1533, 39738, 52940, 57976, 96792, 21853 #### [facility] [address] BNP (B-TYPE NATRIURETIC PEPT BALTAZAR)on 04-07-2022 Natriuretic peptide B (Bld) [Mass/Vol] 32 pg/mL Normal 0-100 [facility] Comment on above: Result Comment: Give n the appropriate clinical setting a BNP result of >100 pg/mL indicates congestive heart failure. Performed By: #### 4 1533, 23077, 98214, 99091, 32106, 99816 #### [facility] [address] CBC W/DIFFon 04-07-2022 ABS IMM GRANS 0.1 10*3/uL Normal 0.0-0.2 [facility] Comment on above: Performed By: #### 4 1533, 98207, 36179, 83178, 19633, 01689 #### [facility] [address] ABS NEUTROPHILS 6.3 10*3/uL Normal 1.6-7.6 [facility] Comment on above: Performed By: #### 4 1533, 73342, 81940, 44061, 70695, 49401 #### [facility] [address] [place] [address], [facility] Basophils (Bld) [#/Vol] 0.1 10*3/uL Normal 0.0-0.2 [facility] Comment on above: Performed By: #### 4 1533, 44132, 79308, 02642, 86159, 23177 #### [facility] [address] [place] [address], [facility] Basophils/100 WBC (Bld) 0.5 % Normal 0.0-1.0 [facility] Comment on above: Performed By: #### 4 1533, 79584, 81770, 77658, 34928, 45781 #### [facility] [address] [place] [address], [facility] Eosinophils (Bld) [#/Vol] 0.3 10*3/uL Normal 0.0-0.5 [facility] Comment on above: Performed By: #### 4 1533, 54159, 04716, 98228, 58756, 19109 #### [facility] [address] [place] [address], [facility] Eosinophils/100 WBC (Bld) 2.5 % Normal 0.0-6.0 [facility] Comment on above: Performed By: #### 4 1533, 84634, 08064, 16829, 91032, 50489 #### [facility] [address] Erythrocyte distribution width (RBC) [Ratio] 13.2 % Normal 11.5-15.0 [facility] Comment on above: Performed By: #### 4 1533, 12366, 50049, 43385, 85036, 73617 #### [facility] [address] Hematocrit (Bld) [Volume fraction] 34.6 % Low 39.0-50.0 [facility] Comment on above: Performed By: #### 4 1533, 56704, 63512, 51679, 82359, 41996 #### [facility] [address] Hemoglobin (Bld) [Mass/Vol] 11.4 g/dL Low 13.0-17.0 [facility] Comment on above: Performed By: #### 4 1533, 46500, 72350, 75494, 13488, 17471 #### [facility] [address] [place] [address], [facility] IMMATURE GRANS 1.0 % Normal 0.0-1.0 [facility] Comment on above: Performed By: #### 4 1533, 36220, 19699, 20385, 61548, 81848 #### [facility] [address] Lymphocytes (Bld) [#/Vol] 2.5 10*3/uL Normal 1.2-4.0 [facility] Comment on above: Performed By: #### 4 1533, 33920, 66354, 23416, 07029, 22356 #### [facility] [address] [place] [id number], [facility] Lymphocytes/100 WBC (Bld) 25.2 % Normal 20.0-45.0 [facility] Comment on above: Performed By: #### 4 1533, 56547, 00178, 10652, 67608, 01678 #### [facility] [address] [place] [address], [facility] MCH (RBC) [Entitic mass] 29.3 pg Normal 27.0-33.0 [facility] Comment on above: Performed By: #### 4 1533, 40928, 57320, 40278, 80873, 77627 #### [facility] [address] [place] [id number], [facility] MCHC (RBC) [Mass/Vol] 32.9 g/dL Normal 32.0-35.0 [facility] Comment on above: Performed By: #### 4 1533, 35844, 84240, 44265, 18914, 54061 #### [facility] [address] [place] [address], [facility] MCV (RBC) [Entitic vol] 88.9 fL Normal 82.0-98.0 [facility] Comment on above: Performed By: #### 4 1533, 25766, 50654, 07411, 09670, 10296 #### [facility] [address] [place] [address], [facility] Monocytes (Bld) [#/Vol] 0.8 10*3/uL Normal 0.1-1.0 [facility] Comment on above: Performed By: #### 4 1533, 29706, 55685, 12621, 63998, 47248 #### [facility] [address] [place] [address], [place] MONOS 8.3 % Normal 5.0-12.0 [facility] Comment on above: Performed By: #### 4 1533, 55350, 78877, 46432, 27671, 78866 #### [facility] [address] [place] [address], [place] Neutrophils/100 WBC (Bld) 62.5 % Normal 40.0-72.0 [facility] Comment on above: Performed By: #### 4 1533, 28562, 24498, 12745, 09876, 76022 #### [facility] [address] [place] [address], [place] Nucleated RBC/100 WBC (Bld) [Ratio] 0 % Normal 0-0 [facility] Comment on above: Performed By: #### 4 1533, 14806, 66412, 65352, 17089, 95160 #### [facility] [address] [place] [address], [place] PLAT CNT 442 10*3/uL High 150-400 [facility] Comment on above: Performed By: #### 4 1533, 47129, 79059, 99538, 10915, 71628 #### [facility] [address] [place] [address], [place] RBC (Bld) [#/Vol] 3.89 10*6/uL Low 4.20-5.70 [facility] Comment on above: Performed By: #### 4 1533, 61594, 74008, 42382, 45979, 78095 #### [facility] [address] [place] [address], [place] WBC (Bld) [#/Vol] 10.00 10*3/uL Normal 4.00-10.60 [facility] Comment on above: Performed By: #### 4 1533, 74902, 83469, 04259, 98074, 17315 #### [address] [address] CHEST AND LATERALon 04-07-20 CHEST AND LATERAL [facility] Department of Radiology [address] [place] [phone] ===== Patient Name: EVANS FORTE : 1970 [...] or significant interval change. Electronically signed: Rehan Garcia. Transcribed by: [email or web address], User Resident: Electronically Signed by: REHAN NIK @ 04/08/2022 07:43 AM Normal [facility] CMV IGG BLOODon 04-07-2022 CMV IGG 0.00 Normal [facility] Comment on above: Order Comment: only males 40 and older Result Comment: NORM AL RANGES: < OR = 0.9O NEGATIVE ; NO DETECTABLE IgG ANTIBODY TO CMV 0.91 - 1.09 EQUIVOCAL; REPEAT TESTING SUGGESTED > OR = 1.10 POSITIVE ; INDICATES PRESENCE OF DETECTABLE IgG ANTIBODY TO CMV Performed By: #### 4 1533, 37222, 16493, 97161, 09100, 72280 #### [facility] [address] COMP METABOLIC PANELon 04-07 Albumin [Mass/Vol] 4.2 g/dL Normal 3.5-5.7 [facility] Comment on above: Performed By: #### 0 0121, 61676, 73406 #### [facility] [address] [place] [address], [facility] ALKALINE PHOSPH 72 IU/L Normal 34-104 [facility] Comment on above: Performed By: #### 0 0121, 33349, 71736 #### [facility] [address] [place] [address], [facility] ALT [Catalytic activity/Vol] 18 U/L Normal 7-52 [facility] Comment on above: Performed By: #### 0 0121, 82201, 89188 #### [facility] [address] [place] [address], [facility] AST [Catalytic activity/Vol] 11 U/L Low 13-39 [facility] Comment on above: Performed By: #### 0 0121, 05774, 72089 #### [facility] [address] [place] [id number], [facility] Bilirubin [Mass/Vol] 0.3 mg/dL Normal 0.3-1.0 [facility] Comment on above: Performed By: #### 0 0121, 50866, 49666 #### [facility] [address] [place] [address], [facility] Calcium [Mass/Vol] 10.4 mg/dL High 8.6-10.3 [facility] Comment on above: Performed By: #### 0 0121, 29189, 86219 #### [facility] [address] [place] [address], [facility] Chloride [Moles/Vol] 106 mmol/L Normal 98-107 [facility] Comment on above: Performed By: #### 0 0121, 30518, 08790 #### [facility] [address] [place] [address], [facility] CO2 [Moles/Vol] 24 mmol/L Normal 21-31 [facility] Comment on above: Performed By: #### 0 0121, 84278, 46682 #### [facility] [address] [place] [address], [facility] Creatinine [Mass/Vol] 5.07 mg/dL High 0.70-1.30 [facility] Comment on above: Performed By: #### 0 0121, 80520, 58280 #### [facility] [address] [place] [id number], [facility] EGFR 13 ml/min/1.73sq m Abnormal >60 [facility] Comment on above: Result Comment: [facility]'s estimated glomerular filtration rate (eGFR) will [...] of individuals. Performed By: #### 0 0121, 29054, 33790 #### [facility] [address] [place] [address], [place] Glucose [Mass/Vol] 106 mg/dL High 70-100 [facility] Comment on above: Performed By: #### 0 0121, 26476, 97259 #### [facility] [address] [place] [address], [place] Potassium [Moles/Vol] 4.6 mmol/L Normal 3.5-5.1 [facility] Comment on above: Performed By: #### 0 0121, 43130, 16080 #### [facility] [address] [place] [address], [place] Protein [Mass/Vol] 7.2 g/dL Normal 6.0-8.3 [facility] Comment on above: Performed By: #### 0 0121, 63569, 16498 #### [facility] [address] [place] [address], [place] Sodium [Moles/Vol] 138 mmol/L Normal 136-145 [facility] Comment on above: Performed By: #### 0 0121, 57323, 70495 #### [facility] [address] [place] [address], [place] Urea nitrogen [Mass/Vol] 59 mg/dL High 7-25 [facility] Comment on above: Performed By: #### 0 0121, 35571, 96648 #### [facility] [address] [place] [address], [place] CREATININE URINE RANDOMon Creatinine (U) [Mass/Vol] 79.0 mg/dL Normal [facility] Comment on above: Result Comment: Ther e are no established reference values for random urine specimens Performed By: #### 4 1533, 25731, 14784, 76010, 13645, 42456 #### [address] RENAL RECIPIENT ABDOMEN A ND PEVLIS WO CONTRASTon 04-07-2022 CT RENAL RECIPIENT ABDOMEN AND PEVLIS WO CONTRAST [facility] Department of Radiology [address] [place] [phone] ===== Patient Name: EVANS FORTE : 1970 Sex: M Age: Race: White Pt. Location: Patient Status: D Ordered Date: 04/07/2022 1:10:00 PM Completed Date: 04/07/2022 01:22 PM Requesting Provider: BERTIN RUSSELL Attending Provider: BERTIN RUSSELL Report Copy To: IDANIA RICKETTS Signs & Symptoms: Z01.818 Encounter for other preprocedural examination I10 History: [place] Comments: Pre-kidney transplant work-up. Please evaluate vessels [...] arteries. Electronically signed: SAYDA GRACE. Transcribed by: [email or web address], User Resident: Electronically Signed by: SAYDA GRACE @ 04/09/2022 10:03 AM Normal [facility] Comment on above: Order Comment: Pre-k idney transplant work-up. Please evaluate vessels for kidney transplant. , Height (ft.): 6 ft 0 in , Weight (lbs): 304 DIRECT BILIon 04-07-2022 Bilirubin.direct [Mass/Vol] 0.0 mg/dL Normal 0.0-0.2 [facility] Comment on above: Performed By: #### 0 0121, 71700, 81320 #### [facility] [address] [place] [address], [facility] ELLY LORENZO VIRUS ABon 08-0 EB VCA IGG 3.86 Normal [facility] Comment on above: Order Comment: only males 40 and older Result Comment: NORM AL RANGES: < OR = 0.9O NEGATIVE ; NO DETECTABLE IgG ANTIBODY TO EBV-VCA 0.91 - 1.09 EQUIVOCAL; REPEAT TESTING SUGGESTED > OR = 1.10 POSITIVE ; INDICATES PRESENCE OF DETECTABLE IgG ANTIBODY TO EBV Performed By: #### 4 1533, 76384, 94665, 82479, 68176, 70541 #### [facility] [address] EB VCA IGM 0.00 Normal [facility] Comment on above: Order Comment: only males 40 and older Result Comment: NORM AL RANGES: < OR = 0.9O NEGATIVE ; NO SIGNIFICANT LEVEL OF DETECTABLE EBV-VCA IgM AB 0.91 - 1.09 EQUIVOCAL; REPEAT TESTING SUGGESTED > OR = 1.10 POSITIVE ; SIGNIFICANT LEVEL OF DETECTABLE EBV-VCA IgM AB Performed By: #### 4 1533, 85545, 32570, 68257, 84857, 57881 #### [facility] [address] HEMOGLOBIN A1Con 04-07-2022 Glucose [Moles/Vol] 174 mmol/L Normal [facility] Comment on above: Performed By: #### 4 1533, 31694, 84655, 28741, 89151, 59609 #### [facility] [address] HbA1c (Bld) [Mass fraction] 7.7 % High 4.0-6.0 [facility] Comment on above: Performed By: #### 4 1533, 74887, 40558, 84261, 43920, 67758 #### [facility] [address] HEPATITIS A ANTIBODY IGMon 0 04-07-2022 HEP A AB IGM Non-Reactive Normal NONREACTIVE [facility] Comment on above: Performed By: #### 4 1533, 89353, 65549, 42992, 28514, 73573 #### [facility] [address] HEPATITIS B CORE ANTIBODYon 04-07-2022 HEP B CORE AB Non-Reactive Normal NONREACTIVE [facility] Comment on above: Performed By: #### 4 1533, 96594, 91995, 55712, 31569, 98122 #### [facility] [address] [facility] [place] [address], [facility] HEPATITIS B SURFACE ANTIBODY QUANTon 04-07-2022 HEP B SURF AB 0.95 mIU/ml Normal [facility] Comment on above: Result Comment: INTE RPRETATION: NONREACTIVE<8.00 mIU/mL INDETERMINATE8.00 - 12.00 mIU/mL REACTIVE>12 mIU/mL Performed By: #### 4 1533, 06460, 81064, 42049, 27380, 03525 #### [facility] [address] [place] [address], [facility] HEPATITIS B SURFACE ANTIGEN QUALon 04-07-2022 HEP B SURF AG QUAL Non-Reactive Normal NONREACTIVE [facility] Comment on above: Performed By: #### 4 1533, 37920, 78394, 22172, 53573, 71936 #### [facility] [address] [facility] [place] [address], [facility] HEPATITIS C ANTIBODYon 04-07 ANTI-HCV Non-Reactive Normal NONREACTIVE [facility] Comment on above: Performed By: #### 4 1533, 65569, 79632, 44162, 13737, 18289 #### [facility] [address] [place] [address], [facility] HIV1 AND 2 COMBO 4Gon 2021 HIV COMBO Negative Normal NEGATIVE [facility] Comment on above: Performed By: #### 3 0625 #### [facility] [address] [facility] [place] [address], [facility] LIPID PROFILEon 04-07-2022 Cholesterol [Mass/Vol] 174 mg/dL Normal 120-200 [facility] Comment on above: Result Comment: CHOL ESTEROL REFERENCE RANGE: 20 YEARS AND OLDER CARDIOVASCULAR RISK Less than 200 mg/dl Low Risk 200 to 239 mg/dl Borderline Risk 240 mg/dl and greater High Risk Performed By: #### 0 0121, 12344, 28525 #### [facility] [address] [facility] [place] [address], [facility] Cholesterol in HDL [Mass/Vol] 37 mg/dL Normal 23-92 [facility] Comment on above: Result Comment: Slig ht variation in normal range could be due to gender and/or age. HDL CHOLESTEROL REFERENCE RANGE: 20 years and older Cardiovascular Risk > or =60 mg/dL Desirable 40 TO 59 mg/dL Low Risk <40 mg/dL High Risk Performed By: #### 0 0121, 65801, 21274 #### [facility] [address] [facility] [place] [address], [facility] Cholesterol in LDL [Mass/Vol] 84 mg/dL Normal 0-130 [facility] Comment on above: Result Comment: LDL IS A CALCULATION LDL IS ONLY VALID IF THE TRIG IS LESS THAN 400. Performed By: #### 0 0121, 44943, 63270 #### [facility] [address] [place] [address], [facility] Cholesterol.total/Chol esterol in HDL [Mass ratio] 4.7 {ratio} High .0-4.5 [facility] Comment on above: Performed By: #### 0 0121, 13549, 60260 #### [facility] [address] [place] [address], [facility] NON-HDL CHOLESTEROL 137 mg/dL Normal [facility] Comment on above: Performed By: #### 0 0121, 12706, 14274 #### [facility] [address] [facility] [place] [address], [facility] Triglyceride [Mass/Vol] 265 mg/dL High 40-149 [facility] Comment on above: Result Comment: TRIG LYCERIDE REFERENCE RANGE: 20 YEARS AND OLDER CARDIOVASCULAR RISK LESS THAN 150 mg/dl LOW RISK 150 TO 199 mg/dl BORDERLINE RISK 200 mg/dl AND GREATER HIGH RISK Performed By: #### 0 0121, 13797, 85014 #### [facility] [address] [place] [address], [facility] VLDL CHOL 53 mg/dL High 0-40 [facility] Comment on above: Performed By: #### 0 0121, 13006, 94653 #### [facility] [address] [facility] [place] [address], [facility] MUMPS IGG BLDon 04-07-2022 MUMPS IGG 1.24 Normal [facility] Comment on above: Result Comment: NORM AL RANGES: < OR = 0.9O NEGATIVE ; NO DETECTABLE IgG ANTIBODY TO MUMPS 0.91 - 1.09 EQUIVOCAL; REPEAT TESTING SUGGESTED > OR = 1.10 POSITIVE ; INDICATES PRESENCE OF DETECTABLE IgG ANTIBODY TO MUMPS Performed By: #### 4 1533, 19826, 93548, 83868, 11300, 01944 #### [facility] [address] [place] [address], [facility] RUBELLAon 04-07-2022 RUBELLA 0.81 Normal [facility] Comment on above: Result Comment: 1.09 RAN IN TRIPLICATE NORMAL RANGES: < OR = 0.9O NEGATIVE ; NO DETECTABLE IgG ANTIBODY TO RUBELLA 0.91 - 1.09 EQUIVOCAL; REPEAT TESTING SUGGESTED > OR = 1.10 POSITIVE ; INDICATES PRESENCE OF DETECTABLE IgG ANTIBODY TO RUBELLA VIRUS Performed By: #### 4 1533, 54025, 82755, 65405, 14004, 89798 #### [facility] [address] [place] [address], [facility] RUBEOLA MEASLES IGGon 2021 RUBEO IGG 0.57 Normal [facility] Comment on above: Result Comment: NORM AL RANGES: < OR = 0.9O NEGATIVE ; NO DETECTABLE IgG ANTIBODY TO RUBEOLA 0.91 - 1.09 EQUIVOCAL; REPEAT TESTING SUGGESTED > OR = 1.10 POSITIVE ; INDICATES PRESENCE OF DETECTABLE IgG ANTIBODY TO RUBEOLA Performed By: #### 4 1533, 61851, 55266, 14162, 61903, 98662 #### [facility] [address] [place] [address], [facility] SINGLE ANTIGEN CLASS 1on METHOD Class I Single Antigen Normal [facility] Comment on above: Order Comment: Some [...] to frequency. Performed By: #### 4 1533, 68433, 61970, 59403, 97828, 49256 #### [facility] [address] [facility] SINGLE ANTIGEN CLASS 2on COMMENTS Normal [facility] Comment on above: Order Comment: Some [...] watch list. Performed By: #### 4 1533, 90167, 29113, 33408, 83556, 93060 #### [facility] [address] [facility] [place] [address], [facility] Result Comment: Clas s I Antigen Microbeads Potential specificites added to the watch list. CPRA 0 Normal [facility] Comment on above: Order Comment: Some [...] to frequency. Performed By: #### 4 1533, 55591, 71125, 80701, 09885, 40190 #### [facility] [address] METHOD Class II Single Antigen Normal T [facility] Comment on above: Order Comment: Some [...] to frequency. Performed By: #### 4 1533, 71814, 43580, 88955, 98428, 60557 #### [facility] [address] SIGNED BY Normal [facility] Comment on above: Order Comment: Some [...] probable, due to frequency. Result Comment: Delano Nuno MS,CHT(RAJESH),MT(ASCP) Before And After School Daycare Worker, Transplant Immunology Performed By: #### 4 1533, 86835, 40998, 76706, 90248, 55242 #### [facility] [address] [place] [address], [facility] T PROT UR Ryne 04-07-2022 U TOTAL PROTEIN 336.4 mg/dL Normal [facility] Comment on above: Result Comment: Ther e are no established reference values for random urine specimens Performed By: #### 4 1533, 11402, 79194, 61314, 57049, 44634 #### [facility] [address] [facility] [place] [address], [facility] TB QUANTIFERON PLUSon 2021 MITOGEN MINUS NIL >10.00 [facility] Comment on above: Performed By: #### 4 1533, 40236, 54441, 29371, 69991, 68806 #### [facility] [address] [place] [address], [facility] NIL 0.02 IU/mL Normal [facility] Comment on above: Performed By: #### 4 1533, 99285, 79585, 23494, 02868, 93862 #### [facility] [address] [facility] [place] [address], [facility] TB QUANTIFERON Negative Normal NEGATIVE [facility] Comment on above: Result Comment: Shawn tiferon TB Gold Interpretation (IU/mL): NEGATIVE: M. tuberculosis infection not likely. Nil: <=8.0 TB1 Antigen minus Nil ([id number]): <0.35 OR >=0.35; and <25% of Nil value. TB2 Antigen minus Nil ([id number]): <0.35 OR >=0.35; and <25% of Nil [...] LTBI (https://www.cdc.gov/tb/publications/guidlines/default.htm Performed By: #### 4 1533, 61081, 86597, 28151, 33847, 71934 #### [facility] [address] [place] [address], [facility] TB1 AG 0.05 IU/mL Normal [facility] Comment on above: Performed By: #### 4 1533, 32633, 81701, 38748, 55004, 29870 #### [facility] [address] [place] [address], [facility] TB1 AG MINUS NIL 0.03 IU/mL Normal [facility] Comment on above: Performed By: #### 4 1533, 57437, 92396, 92557, 59113, 81142 #### [facility] [address] [place] [address], [facility] TB2 AG 0.04 IU/mL Normal [facility] Comment on above: Performed By: #### 4 1533, 63380, 60992, 05365, 80073, 27794 #### [facility] [address] [place] [address], [facility] TB2 AG MINUS NIL 0.02 IU/mL Normal [facility] Comment on above: Performed By: #### 4 1533, 58633, 75057, 70001, 31605, 55705 #### [facility] [address] [facility] [place] [address], [facility] TESTOSTERONE, FREE+SHBG+TOTA L ILon 04-07-2022 [place] Normal [facility] Comment on above: Result Comment: Test Performed by [employer] [address] [place] [address] [id number] - Released 04/08/2022 09:48 SEX HORM BIND GLOB 23 nmol/L Normal 11-80 [facility] Testosterone [Mass/Vol] 178 ng/dL Low 220-1000 [facility] TESTOSTERONE, FREE 40.8 pg/mL Low 47-244 [facility] Comment on above: Result Comment: The concentration of free testosterone is derived from a mathematical expression based on the constant for the binding of testosterone to albumin and/or sex hormone binding globulin. UA,MICROSCOPIC REQUIREDon Appearance (U) CLEAR Normal CLEAR [facility] Comment on above: Performed By: #### 4 1533, 18499, 09144, 85504, 56739, 80991 #### [facility] [address] [facility] [place] [address], [facility] Bilirubin Ql (U) Negative Normal NEGATIVE [facility] Comment on above: Performed By: #### 4 1533, 43569, 92124, 00416, 00503, 72362 #### [facility] [address] [place] [address], [facility] Color (U) YELLOW Normal YELLOW [facility] Comment on above: Performed By: #### 4 1533, 74257, 96014, 04551, 57259, 75378 #### [facility] [address] [facility] [place] [address], [facility] EPIS OCC Normal FEW,OCC,NONE SEEN [facility] Comment on above: Performed By: #### 4 1533, 26358, 59054, 39771, 73013, 34816 #### [facility] [address] [facility] [place] [address], [facility] Glucose Ql (U) 250 mg/dL Abnormal NEGATIVE [facility] Comment on above: Performed By: #### 4 1533, 19252, 80720, 91306, 03104, 98681 #### [facility] [address] [facility] [place] [address], [facility] Hemoglobin Ql (U) TRACE Abnormal NEGATIVE [facility] Comment on above: Performed By: #### 4 1533, 87497, 97534, 21190, 57282, 25609 #### [facility] [address] [facility] [place] [address], [facility] KETONE Negative Normal NEGATIVE [facility] Comment on above: Performed By: #### 4 1533, 85850, 68724, 95233, 33300, 71601 #### [facility] [address] [facility] [place] [address], [facility] LEUK AGNES Negative Normal NEGATIVE [facility] Comment on above: Performed By: #### 4 1533, 45510, 58751, 03576, 02288, 47777 #### [facility] [address] [facility] [place] [address], [facility] Nitrite Ql (U) Negative Normal NEGATIVE [facility] Comment on above: Performed By: #### 4 1533, 17136, 78152, 27773, 20880, 80132 #### [facility] [address] [facility] [address] pH (U) 5.5 [pH] Normal 5.0-8.0 [facility] Comment on above: Performed By: #### 4 1533, 06775, 70545, 16203, 92305, 21977 #### [facility] [address] [facility]. [address] Protein Ql (U) 100 Abnormal NEGATIVE [facility] Comment on above: Performed By: #### 4 1533, 72333, 33010, 44166, 31523, 37287 #### [facility] [address] RBC 0-2 Abnormal NONE SEEN [facility] Comment on above: Performed By: #### 4 1533, 24807, 27135, 56115, 36196, 59337 #### [facility] [address] SPEC GRAV 1.020 Normal 1.015-1.020 [facility] Comment on above: Performed By: #### 4 1533, 28828, 28241, 66331, 72205, 24066 #### [facility] [address] WBC UA 0-2 Abnormal NONE SEEN [facility] Comment on above: Performed By: #### 4 1533, 23177, 49680, 87040, 19972, 83489 #### [facility] [address] VARICELLA ZOSTER IGGon 04-07 VARICELLA IGG 1.40 Normal [facility] Comment on above: Result Comment: NORM AL RANGES: < OR = 0.9O NEGATIVE ; NO DETECTABLE IgG ANTIBODY TO VARICELLA-ZOSTER VIRUS 0.91 - 1.09 EQUIVOCAL; REPEAT TESTING SUGGESTED > OR = 1.10 POSITIVE ; INDICATES PRESENCE OF DETECTABLE IgG ANTIBODY TO VARICELLA-ZOSTER VIRUS Performed By: #### 4 1533, 98652, 66514, 65752, 39922, 08961 #### [facility] [address] [place] [address], [facility] Albumin [Mass/volume] in Ser um or PlasmaOrdered By: Ada Uriostegui on 02-20-2022 Albumin [Mass/Vol] 3.4 g/dL 3.2-5.5 [facility] Automated erythrocytes count in urine sediment (number/area)Ordered By: Ada Uriostegui on 02-20-2022 RBC Auto (Urine sed) [#/Area] 1-2 [HPF] 0-4 [facility] Automated leukocytes count i n urine sediment (number/area)Ordered By: Ada Uriostegui on 02-20-2022 WBC Auto (Urine sed) [#/Area] 0-1 [HPF] 0-4 [facility] Bilirubin Test strip Ql (U)O rdered By: Ada Uriostegui on 02-20-2022 Bilirubin Ql (U) Negative Negative [facility] Blood hemoglobin measurement (mass/volume)Ordered By: Ada Uriostegui on 02-20-2022 Hemoglobin (Bld) [Mass/Vol] 11.1 g/dL 13.0-17.[address] [facility] [address] biopsyOrdered By: Jonathan christensen on 02-20-2022 Transferrin [Mass/Vol] 284 mg/dL 180-380 [facility] Color Auto (U)Ordered By: Ab akhil Uriostegui on 02-20-2022 Color (U) Yellow Yellow [facility] Creatinine [Mass/volume] in UrineOrdered By: Ada Uriostegui on 02-20-2022 Creatinine (U) [Mass/Vol] 73.3 mg/dL [facility] Comment on above: No reference range e stablished Creatinine and Glomerular fi ltration rate.predicted panel (S/P/Bld)Ordered By: Ada Uriostegui on 02-20-2022 Creatinine [Mass/Vol] 4.65 mg/dL 0.64-1.27 [facility] Erythrocyte distribution wid th Auto (RBC) [Ratio]Ordered By: Ada Uriostegui on 02-20-2022 Erythrocyte distribution width (RBC) [Ratio] 13.9 % 12.0-14.8 [facility] Estimated glomerular filtrat ion rate (GFR) non- AmericanOrdered By: Ada Uriostegui on 02-20-2022 GFR/1.73 sq M.predicted among non-blacks MDRD (S/P/Bld) [Vol rate/Area] 13 mL/Min [facility] Ferritin [Mass/volume] in Se rum or PlasmaOrdered By: Ada Uriostegui on 02-20-2022 Ferritin [Mass/Vol] 471.8 ng/mL 23.9-336.2 [facility] Hematocrit Auto (Bld) [Volum e fraction]Ordered By: Ada Uriostegui on 02-20-2022 Hematocrit (Bld) [Volume fraction] 32.9 % 38.8-50.0 [facility] Iron [Mass/volume] in Serum or PlasmaOrdered By: Ada Uriostegui on 02-20-2022 Iron [Mass/Vol] 74 ug/dL 40-160 [facility] Iron binding capacity [Mass/ volume] in Serum or PlasmaOrdered By: Ada Uriostegui on 02-20-2022 Iron binding capacity [Mass/Vol] 398 ug/dL 255-450 [facility] Iron saturation [Mass Fracti on] in Serum or PlasmaOrdered By: Ada Uriostegui on 02-20-2022 Iron saturation [Mass fraction] 18.0 % 20-50 [facility] Ketones Auto test strip (U) [Mass/Vol]Ordered By: Ada Uriostegui on 02-20-2022 Ketones (U) [Mass/Vol] Negative Negative Fi [facility] - Chemistry and C hemistry - challengeOrdered By: Ada Uriostegui on 02-20-2022 Magnesium [Mass/Vol] 1.9 mg/dL 1.6-2.6 [facility] - UrinalysisOrder ed By: Ada Uriostegui on 02-20-2022 Hyaline casts LM Ql (Urine sed) 0-8 [LPF] 0-8 [facility] MCH Auto (RBC) [Entitic mass ]Ordered By: Ada Uriostegui on 02-20-2022 MCH (RBC) [Entitic mass] 30.5 pg 27.5-35.2 [facility] MCHC Auto (RBC) [Mass/Vol]Or dered By: Ada Uriostegui on 02-20-2022 MCHC (RBC) [Mass/Vol] 33.8 g/dL 32.5-35.6 [facility] MCV Auto (RBC) [Entitic vol] Ordered By: Ada Uriostegui on 02-20-2022 MCV (RBC) [Entitic vol] 90.2 fL 83.5-101 [facility] Nitrite Test strip Ql (U)Ord ered By: Ada Uriostegui on 02-20-2022 Nitrite Ql (U) Negative Negative [facility] No Panel InformationOrdered By: Ada Uriostegui on 02-20-2022 25-Hydroxy Vitamin D Total 13.8 ng/mL 30-100 [facility] Comment on above: VITAMIN D STATUS 25( [place])VITAMIN D RANGE (ng/mL) Deficient <20 Insufficient 20 to <30 Sufficient 30 to 100 Reference: Sophy MF,Glendy NC, Nitin RAMOS, et al. Evaluation,treatment, and prevention of vitamin D deficiency; an Endocrine Society clinical practice guideline. JCEM. 2010; 96(7):1911-30. Estimated GFR () 16 mL/Min [facility] Comment on above: GFR estimated refere nce range: According to KDOQI guidelines, <60 ml/min/1.73m2 is sufficient to diagnose a patient with chronic kidney disease. Pharmacy Creatinine Clearance (Chem N/A [facility] Phosphate [Mass/volume] in S james or PlasmaOrdered By: Ada Uriostegui on 02-20-2022 Phosphate [Mass/Vol] 4.2 mg/dL 2.5-4.6 [facility] Platelet mean volume Auto (B ld) [Entitic vol]Ordered By: Ada Uriostegui on 02-20-2022 Platelet mean volume (Bld) [Entitic vol] 7.4 fL 6.6-10.1 [facility] Platelets Auto (Bld) [#/Vol] Ordered By: Ada Uriostegui on 02-20-2022 Platelets (Bld) [#/Vol] 497 10*3/uL 150-450 [facility] Protein Auto test strip (U) [Mass/Vol]Ordered By: Ada Uriostegui on 02-20-2022 Protein (U) [Mass/Vol] 300 mg/dL Negative Fi [facility] Protein [Mass/volume] in Uri neOrdered By: Ada Uriostegui on 02-20-2022 Protein (U) [Mass/Vol] 303 mg/dL 0-9 Fi [facility] RBC Auto (Bld) [#/Vol]Ordere d By: Ada Uriostegui on 02-20-2022 RBC (Bld) [#/Vol] 3.64 10*6/uL 3.90-5.60 [facility] Serum or plasma calcium shante urement (mass/volume)Ordered By: Ada Uriostegui on 02-20-2022 Calcium [Mass/Vol] 8.8 mg/dL 8.2-10.2 [facility] Serum or plasma chloride alber surement (moles/volume)Ordered By: Ada Uriostegui on 02-20-2022 Chloride [Moles/Vol] 106 mmol/L 95-114 [facility] Serum or plasma glucose shante urement (mass/volume)Ordered By: Ada Uriostegui on 02-20-2022 Glucose [Mass/Vol] 65 mg/dL 70-100 [facility] Comment on above: ADA recommended refe rence range Random Glucose Reference Range is dependent on time and content of last meal. Glucose of more than 200 mg/dL in a nonstressed, ambulatory subject supports the diagnosis of Diabetes Mellitus. Serum or plasma intact parat hyroid hormone measurement (mass/volume)Ordered By: Ada Uriostegui on 02-20-2022 Parathyrin.intact [Mass/Vol] 251.7 pg/mL 12-88 [facility] Serum or plasma potassium me asurement (moles/volume)Ordered By: Ada Uriostegui on 02-20-2022 Potassium [Moles/Vol] 4.7 mmol/L 3.5-5.1 [facility] Serum or plasma sodium measu rement (moles/volume)Ordered By: Ada Uriostegui on 02-20-2022 Sodium [Moles/Vol] 141 mmol/L 136-146 [facility] Serum or plasma total carbon dioxide measurement (moles/volume)Ordered By: Ada Uriostegui on 02-20-2022 CO2 [Moles/Vol] 24.3 mmol/L 22.0-30.0 [facility] Serum or plasma urea nitroge n measurement (mass/volume)Ordered By: Ada Uriostegui on 02-20-2022 Urea nitrogen [Mass/Vol] 51 mg/dL 9-23 [facility] Serum or plasma uric acid me asurement (mass/volume)Ordered By: Ada Uriostegui on 02-20-2022 Urate [Mass/Vol] 6.6 mg/dL 2.6-7.2 [facility] Specific gravity Auto test s trip (U) [Rel density]Ordered By: Ada Uriostegui on 02-20-2022 Specific gravity (U) [Rel density] 1.013 1.001-1.030 [facility] Squamous epithelial cells de tection in urine sediment by light microscopyOrdered By: Ada Uriostegui on 02-20-2022 Epithelial cells.squamous LM Ql (Urine sed) 0-1 [HPF] 0-2 [facility] Urine bacteria detection by automated methodOrdered By: Ada Uriostegui on 02-20-2022 Bacteria Auto Ql (U) None seen None Seen [facility] Urine clarity by refractomet ry automatedOrdered By: Ada Uriostegui on 02-20-2022 Clarity Refractometry automated (U) Clear Clear [facility] Urine glucose measurement by automated test strip (mass/volume)Ordered By: Ada Uriostegui on 02-20-2022 Glucose Auto test strip (U) [Mass/Vol] Normal mg/dL Normal [facility] Urine hemoglobin detection b y automated test stripOrdered By: Ada Uriostegui on 02-20-2022 Hemoglobin Auto test strip Ql (U) Trace Negative [facility] Urine leukocyte esterase det ection by automated test stripOrdered By: Ada Uriostegui on 02-20-2022 Leukocyte esterase Auto test strip Ql (U) Negative Negative [facility] Urine protein/creatinine rat ioOrdered By: Ada Uriostegui on 02-20-2022 Protein/Creatinine (U) [Ratio] 4134 mg/g{Cre} 0-200 [facility] Urobilinogen Auto test strip (U) [Mass/Vol]Ordered By: Ada Uriostegui on 02-20-2022 Urobilinogen (U) [Mass/Vol] Normal mg/dL Normal [facility] WBC Auto (Bld) [#/Vol]Ordere d By: Ada Moody on 02-20-2022 WBC (Bld) [#/Vol] 9.6 10*3/uL 4.1-10.5 [facility] pH Auto test strip (U)Ordere d By: Ada Topetedir on 02-20-2022 pH (U) 5.5 [pH] 5.0-9.0 [facility] C-Reactive Proteinon 022 CRP IV 3.4 mg/dl Normal <5.0 [facility] Comment on above: Performed By: #### C BCAD, CMP, ESR, CRP #### [facility] [address] [place], [place] [id number] Complete Blood Count with Au to Diffon 10-23-2021 Basophils (Bld) [#/Vol] 0.08 10*3/uL Normal 0.00-0.20 [facility] Comment on above: Performed By: #### C BCAD, CMP, ESR, CRP #### [facility] [address] [place], [place] [id number] Basophils/100 WBC (Bld) 0.4 % Normal [facility] Comment on above: Performed By: #### C BCAD, CMP, ESR, CRP #### [facility] [address] [place], [place] [id number] Eosinophils (Bld) [#/Vol] 0.34 10*3/uL Normal 0.02-0.50 [facility] Comment on above: Performed By: #### C BCAD, CMP, ESR, CRP #### [facility] [address] [place], [place] [id number] Eosinophils/100 WBC (Bld) 1.8 % Normal [facility] Comment on above: Performed By: #### C BCAD, CMP, ESR, CRP #### [facility] [address] [place], [place] [id number] Erythrocyte distribution width (RBC) [Ratio] 12.9 % Normal 11.0-15.0 [facility] Comment on above: Performed By: #### C BCAD, CMP, ESR, CRP #### [facility] [address] [place], [place] [id number] Hematocrit (Bld) [Volume fraction] 38.4 % Low 38.5-50.0 [facility] Comment on above: Performed By: #### C BCAD, CMP, ESR, CRP #### [facility] [address] [place], [place] [id number] Hemoglobin (Bld) [Mass/Vol] 12.2 g/dL Low 13.0-17.1 [facility] Comment on above: Performed By: #### C BCAD, CMP, ESR, CRP #### [facility] [address] [place], [place] [id number] Lymphocytes (Bld) [#/Vol] 1.9 10*3/uL Normal 0.9-3.9 [facility] Comment on above: Performed By: #### C BCAD, CMP, ESR, CRP #### [facility] [address] [place], [place] [id number] Lymphocytes/100 WBC (Bld) 10.1 % Normal [facility] Comment on above: Performed By: #### C BCAD, CMP, ESR, CRP #### [facility] [address] [place], [place] [id number] MCH (RBC) [Entitic mass] 28.8 pg Normal 27.0-33.0 [facility] Comment on above: Performed By: #### C BCAD, CMP, ESR, CRP #### [facility] [address] [place], [place] [id number] MCHC (RBC) [Mass/Vol] 31.8 g/dL Low 32.0-36.0 [facility] Comment on above: Performed By: #### C BCAD, CMP, ESR, CRP #### [facility] [address] [place], [place] [id number] MCV (RBC) [Entitic vol] 91 fL Normal 80-100 [facility] Comment on above: Performed By: #### C BCAD, CMP, ESR, CRP #### [facility] [address] [place], [place] [id number] Monocytes (Bld) [#/Vol] 1.2 10*3/uL High 0.2-0.9 [facility] Comment on above: Performed By: #### C BCAD, CMP, ESR, CRP #### [facility] [address] [place], [place] [id number] Monocytes/100 WBC (Bld) 6.3 % Normal [facility] Comment on above: Performed By: #### C BCAD, CMP, ESR, CRP #### [facility] [address] [place], [place] [id number] Neutrophils (Bld) [#/Vol] 15.0 10*3/uL High 1.5-7.8 [facility] Comment on above: Performed By: #### C BCAD, CMP, ESR, CRP #### [facility] [address] [place], [place] [id number] Neutrophils/100 WBC (Bld) 80.6 % Normal [facility] Comment on above: Performed By: #### C BCAD, CMP, ESR, CRP #### [facility] [address] [place], [place] [id number] Platelet mean volume (Bld) [Entitic vol] 8.80 fL Normal 7.50-12.50 [facility] Comment on above: Performed By: #### C BCAD, CMP, ESR, CRP #### [facility] [address] [place], [place] [id number] Platelets (Bld) [#/Vol] 586 10*3/uL High 140-400 [facility] Comment on above: Performed By: #### C BCAD, CMP, ESR, CRP #### [facility] [address] [place], [place] [id number] RBC (Bld) [#/Vol] 4.23 10*6/uL Normal 4.20-5.80 [facility] Comment on above: Performed By: #### C BCAD, CMP, ESR, CRP #### [facility] [address] [place], [place] [id number] RDW-SD 42.6 fL Normal 37.0-50.0 [facility] Comment on above: Performed By: #### C BCAD, CMP, ESR, CRP #### [facility] [address] [place], [place] [id number] WBC (Bld) [#/Vol] 18.7 10*3/uL High 3.8-11.0 [facility] Comment on above: Performed By: #### C BCAD, CMP, ESR, CRP #### [facility] [address] [place], [place] [id number] Comprehensive Metabolic Pane nick 10-23-2021 Albumin [Mass/Vol] 4.5 g/dL Normal 3.6-5.1 [facility] Comment on above: Performed By: #### C BCAD, CMP, ESR, CRP #### [facility] [address] [place], [place] [id number] Albumin/Globulin [Mass ratio] 1.3 {ratio} Normal 1.0-2.5 [facility] Comment on above: Performed By: #### C BCAD, CMP, ESR, CRP #### [facility] [address] [place], [place] [id number] ALP [Catalytic activity/Vol] 87 U/L Normal 40-129 [facility] Comment on above: Performed By: #### C BCAD, CMP, ESR, CRP #### [facility] [address] [place], [place] [id number] ALT [Catalytic activity/Vol] 23 U/L Normal 9-46 [facility] Comment on above: Result Comment: 08/06 Female reference range changed. Performed By: #### C BCAD, CMP, ESR, CRP #### [facility] [address] [place], [place] [id number] Anion gap [Moles/Vol] 23 mmol/L High 12-20 [facility] Comment on above: Result Comment: Effe ctive 09/11/2019 reference range changed. Performed By: #### C BCAD, CMP, ESR, CRP #### [facility] [address] [place], [place] [id number] AST [Catalytic activity/Vol] 20 U/L Normal 10-40 [facility] Comment on above: Performed By: #### C BCAD, CMP, ESR, CRP #### [facility] [address] [place], [place] [id number] BUN/CREA 15 Ratio Normal 6-22 [facility] Comment on above: Performed By: #### C BCAD, CMP, ESR, CRP #### [facility] [address] [place], [place] [id number] Calcium [Mass/Vol] 9.6 mg/dL Normal 8.6-10.2 [facility] Comment on above: Performed By: #### C BCAD, CMP, ESR, CRP #### [facility] [address] [place], [place] [id number] Chloride [Moles/Vol] 102 mmol/L Normal 98-107 [facility] Comment on above: Performed By: #### C BCAD, CMP, ESR, CRP #### [facility] [address] [place], [place] [id number] CO2 [Moles/Vol] 18 mmol/L Low 20-31 [facility] Comment on above: Performed By: #### C BCAD, CMP, ESR, CRP #### [facility] [address] [place], [place] [id number] Creatinine [Mass/Vol] 4.5 mg/dL High 0.7-1.4 [facility] Comment on above: Performed By: #### C BCAD, CMP, ESR, CRP #### [facility] [address] [place], [place] [id number] eGFRAA 17 mL/min/1.73m2 Low >60 [facility] Comment on above: Performed By: #### C BCAD, CMP, ESR, CRP #### [facility] [address] [place], [place] [id number] eGFRNAA 14 mL/min/1.73m2 Low >60 [facility] Comment on above: Performed By: #### C BCAD, CMP, ESR, CRP #### [facility] [address] [place], [place] [id number] Globulin (S) [Mass/Vol] 3.5 g/dL Normal 1.9-3.7 [facility] Comment on above: Performed By: #### C BCAD, CMP, ESR, CRP #### [facility] [address] [place], [place] [id number] Glucose [Mass/Vol] 62 mg/dL Low 65-99 [facility] Comment on above: Result Comment: For FASTING Glucose --- ADA reference ranges: Normal 65-99 mg/dl Prediabetes 100-125 Diabetes >/= 126 Performed By: #### C BCAD, CMP, ESR, CRP #### [facility] [address] [place], [place] [id number] Potassium [Moles/Vol] 4.7 mmol/L Normal 3.5-5.5 [facility] Specialist Comment on above: Performed By: #### C BCAD, CMP, ESR, CRP #### [facility] [address] [place], [place] [id number] Protein [Mass/Vol] 8.0 g/dL Normal 6.1-8.1 [facility] Comment on above: Performed By: #### C BCAD, CMP, ESR, CRP #### [facility] [address] [place], [place] [id number] Sodium [Moles/Vol] 139 mmol/L Normal 135-146 [facility] Comment on above: Performed By: #### C BCAD, CMP, ESR, CRP #### [facility] [address] [place], [place] [id number] TBIL <0.3 Normal [facility] Comment on above: Performed By: #### C BCAD, CMP, ESR, CRP #### [facility] [address] [place], [place] [id number] Urea nitrogen [Mass/Vol] 66 mg/dL High 7-25 [facility] Comment on above: Performed By: #### C BCAD, CMP, ESR, CRP #### [facility] [address] [place], [place] [id number] RBC Sedimentation Rateon ESR (Bld) [Velocity] 118.00 mm/h High 0.00-20.00 [facility] Comment on above: Performed By: #### C BCAD, CMP, ESR, CRP #### [facility] [address] [place], [place] [id number] [facility] 04-02-2020 CNCO Letter Text Normal [facility] PROGRESSon 06-20-2019 PROGRESS HNO ID: [id number] Author: Dc (Rn) JACOB Mistry Service: ? Author Type: Registered Nurse Type: Progress Notes Filed: 06/20/2019 7:28 AM Note Text: On intake, patient admits to chewing tobacco. Will need to quit. New Referral Referring Physician Dr. Ada Uriostegui Organ Type kidney ESRD No. Cause: DM Dialysis Dependant? Sharon of Dialysis Facility: n/a Diabetes Yes. 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 No. Facility: n/a Willing to accept blood transfusion? Yes Potential Living Donor? Yes Full transplant evaluation? Yes Nephrology Screen Required? No If yes to nephrology screen, reason: n/a Dc Mistry RN Pre-Kidney AND Pancreas Philosophy Faculty Member [facility] Normal [facility] Vital Signs Date Time Vital Sign Value Performing Clinician Facility 04-26-2025 13:25-0400 Body temperature 98.29 [degF] [facility] 04-26-2025 13:25-0400 Diastolic blood pressure 62 mm[Hg] [facility] 04-26-2025 13:25-0400 Heart rate 85 /min [facility] 04-26-2025 13:25-0400 Respiratory rate 16 /min [facility] 04-26-2025 13:25-0400 SaO2% (BldA) [Mass fraction] 97 % [facility] 04-26-2025 13:25-0400 Systolic blood pressure 173 mm[Hg] [facility] 04-24-2025 09:11-0400 Diastolic blood pressure 82 mm[Hg] Idania Rossick DO Work Phone: [facility] 04-24-2025 09:11-0400 Systolic blood pressure 160 mm[Hg] Idania Rossick DO Work Phone: [facility] 04-24-2025 08:49-0400 Body height 187.96 cm Idania Petznick DO Work Phone: [facility] 04-24-2025 08:49-0400 Body temperature 97.8 [degF] Idania Petznick DO Work Phone: [facility] 04-24-2025 08:49-0400 Body weight 152 kg Idania Petznick DO Work Phone: [facility] [facility] 04-24-2025 08:49-0400 Heart rate 69 /min Idania Petznick DO Work Phone: [facility] 04-24-2025 08:49-0400 Respiratory rate 18 /min Idania Petznick DO Work Phone: [facility] 04-24-2025 08:49-0400 SaO2% (BldA) [Mass fraction] 99 % Idania Petznick DO Work Phone: [facility] 04-05-2025 09:40-0400 Body height 188 cm Kaylee JONES Work Phone: [facility] [place] [employer] [facility] 04-05-2025 09:40-0400 Body mass index (BMI) [Ratio] 43.14 kg/m2 Kaylee Mesa [facility] 04-05-2025 09:40-0400 Body weight 152.41 kg Kaylee JONES [facility] 04-05-2025 09:40-0400 Diastolic blood pressure 91 mm[Hg] Kaylee Mesa PA [facility] Comment on above: just took am meds 04-05-2025 09:40-0400 Heart rate 69 /min Kaylee Mesa PA [facility] 04-05-2025 09:40-0400 Respiratory rate 18 /min Kaylee Mesa PA [facility] 04-05-2025 09:40-0400 SaO2% (BldA) [Mass fraction] 98 % [facility]lee [facility]ONES [facility] 04-05-2025 09:40-0400 Systolic blood pressure 204 mm[Hg] Kaylee JONES Work Phone: [facility] [place] [employer] [facility] Comment on above: just took am meds 03-26-2025 12:30-0400 Diastolic blood pressure 85 mm[Hg] Idania Petznick DO Work Phone: [facility] 03-26-2025 12:30-0400 Heart rate 75 /min Idania Petznick DO Work Phone: [facility] 03-26-2025 12:30-0400 Respiratory rate 20 /min Idania Petznick DO Work Phone: [facility] 03-26-2025 12:30-0400 SaO2% (BldA) [Mass fraction] 98 % Idania Petznick DO Work Phone: [facility] 03-26-2025 12:30-0400 Systolic blood pressure 197 mm[Hg] Idania Petznick DO Work Phone: [facility] 03-26-2025 08:31-0400 Body height 187.96 cm Idania Petznick DO Work Phone: [facility] 03-26-2025 08:31-0400 Body temperature 98 [degF] Idania Petznick DO Work Phone: [facility] 03-26-2025 08:31-0400 Body weight 150 kg Idania Petznick DO Work Phone: [facility] 03-11-2025 11:25-0400 Diastolic blood pressure 99 mm[Hg] Idania Petznick DO Work Phone: [facility] 03-11-2025 11:25-0400 Heart rate 76 /min Idania Petznick DO Work Phone: [facility] 03-11-2025 11:25-0400 Respiratory rate 20 /min Idania Petznick DO Work Phone: [facility] 03-11-2025 11:25-0400 SaO2% (BldA) [Mass fraction] 100 % Idania Petznick DO Work Phone: [facility] 03-11-2025 11:25-0400 Systolic blood pressure 176 mm[Hg] Idania Petznick DO Work Phone: [facility] 03-11-2025 10:29-0400 Body height 187.96 cm Idania Petznick DO Work Phone: [facility] 03-11-2025 10:29-0400 Body temperature 97.7 [degF] Idania Petznick DO Work Phone: [facility] 03-11-2025 10:29-0400 Body weight 145.1 kg Idania Petznick DO Work Phone: [facility] 03-07-2025 15:50-0400 Diastolic blood pressure 86 mm[Hg] Idania Petznick DO Work Phone: [facility] 03-07-2025 15:50-0400 Heart rate 67 /min Idania Petznick DO Work Phone: [facility] 03-07-2025 15:50-0400 SaO2% (BldA) [Mass fraction] 98 % Idania Petznick DO Work Phone: [facility] 03-07-2025 15:50-0400 Systolic blood pressure 158 mm[Hg] Idania Petznick DO Work Phone: [facility] 02-13-2025 08:38-0400 Body height 187.96 cm Idania Petznick DO Work Phone: [facility] 02-13-2025 08:38-0400 Body mass index (BMI) [Ratio] 41.4 kg/m2 Idania Petznick DO Work Phone: [facility] 02-13-2025 08:38-0400 Body weight 146.51 kg Idania Petznick DO Work Phone: [facility] 02-13-2025 08:38-0400 Diastolic blood pressure 80 mm[Hg] Idania Petznick DO Work Phone: [facility] 02-13-2025 08:38-0400 Heart rate 55 /min Idania Petznick DO Work Phone: [facility] 02-13-2025 08:38-0400 SaO2% (BldA) [Mass fraction] 97 % Idania Petznick DO Work Phone: [facility] 02-13-2025 08:38-0400 Systolic blood pressure 148 mm[Hg] Idania Petznick DO Work Phone: [facility] 02-02-2025 11:42-0400 Body height 188 cm Sherley Tempelton MD Work Phone: [employer] 02-02-2025 11:42-0400 Body mass index (BMI) [Ratio] 38.52 kg/m2 Sherley Templeton MD Work Phone: [employer] 02-02-2025 11:42-0400 Body weight 136.08 kg Sherley Templeton MD Work Phone: [employer] 02-02-2025 09:06-0400 Body temperature 98.01 [degF] Sherley Templeton MD Work Phone: [employer] 02-02-2025 09:06-0400 Diastolic blood pressure 75 mm[Hg] Sherley Templeton MD Work Phone: [employer] 02-02-2025 09:06-0400 Heart rate 79 /min Sherley Templeton MD Work Phone: [employer] 02-02-2025 09:06-0400 Respiratory rate 18 /min Sherley Templeton MD Work Phone: [employer] 02-02-2025 09:06-0400 SaO2% (BldA) [Mass fraction] 96 % Sherley Templeton MD Work Phone: [facility] 02-02-2025 09:06-0400 Systolic blood pressure 183 mm[Hg] Sherley Templeton MD Work Phone: [facility] 01-02-2025 00:30-0400 Diastolic blood pressure 74 mm[Hg] Idania Petznick DO Work Phone: [facility] 01-02-2025 00:30-0400 Heart rate 74 /min Idania Petznick DO Work Phone: [facility] 01-02-2025 00:30-0400 Respiratory rate 20 /min Idania Petznick DO Work Phone: [facility] 01-02-2025 00:30-0400 SaO2% (BldA) [Mass fraction] 97 % Idania Petznick DO Work Phone: [facility] 01-02-2025 00:30-0400 Systolic blood pressure 157 mm[Hg] Idania Petznick DO Work Phone: [facility] 01-01-2025 21:07-0400 Body height 187.96 cm Idania Petznick DO Work Phone: [facility] 01-01-2025 21:07-0400 Body temperature 98.7 [degF] Idania Petznick DO Work Phone: [facility] 01-01-2025 21:07-0400 Body weight 144.35 kg Idania Petznick DO Work Phone: [facility] 12-29-2024 16:23-0400 Body height 187.96 cm Idania Petznick DO Work Phone: [facility] 12-29-2024 16:23-0400 Body temperature 98 [degF] Idania Petznick DO Work Phone: [facility] 12-29-2024 16:23-0400 Body weight 150 kg Idania Petznick DO Work Phone: [facility] 12-29-2024 16:23-0400 Diastolic blood pressure 93 mm[Hg] Idania Petznick DO Work Phone: [facility] 12-29-2024 16:23-0400 Heart rate 73 /min Idania Petznick DO Work Phone: [facility] 12-29-2024 16:23-0400 Respiratory rate 20 /min Idania Petznick DO Work Phone: [facility] 12-29-2024 16:23-0400 SaO2% (BldA) [Mass fraction] 97 % Idania Petznick DO Work Phone: [facility] 12-29-2024 16:23-0400 Systolic blood pressure 202 mm[Hg] Idania Petznick DO Work Phone: [facility] 12-05-2024 13:42-0400 Body height 188 cm Idania Petznick DO Work Phone: [facility] 12-05-2024 13:42-0400 Body mass index (BMI) [Ratio] 40.7 kg/m2 Idania Petznick DO Work Phone: [facility] 12-05-2024 13:42-0400 Body temperature 98.29 [degF] Idania Petznick DO Work Phone: [facility] 12-05-2024 13:42-0400 Body weight 143.79 kg Idania Petznick DO Work Phone: [facility] 12-05-2024 13:42-0400 Diastolic blood pressure 80 mm[Hg] Idania Petznick DO Work Phone: [facility] 12-05-2024 13:42-0400 Heart rate 82 /min Idania Petznick DO Work Phone: [facility] 12-05-2024 13:42-0400 SaO2% (BldA) [Mass fraction] 100 % Idania Petznick DO Work Phone: [facility] 12-05-2024 13:42-0400 Systolic blood pressure 134 mm[Hg] Idania Petznick DO Work Phone: [facility] 11-27-2024 22:43-0400 Body height 187.96 cm Idania Petznick DO Work Phone: [facility] 11-27-2024 22:43-0400 Body temperature 98.6 [degF] Idania Petznick DO Work Phone: [facility] 11-27-2024 22:43-0400 Body weight 143.7 kg Idania Petznick DO Work Phone: [facility] 11-27-2024 22:43-0400 Diastolic blood pressure 80 mm[Hg] Idania Petznick DO Work Phone: [facility] 11-27-2024 22:43-0400 Heart rate 88 /min Idania Petznick DO Work Phone: [facility] 11-27-2024 22:43-0400 Respiratory rate 16 /min Idania Petznick DO Work Phone: [facility] 11-27-2024 22:43-0400 SaO2% (BldA) [Mass fraction] 96 % Idania Petznick DO Work Phone: [facility] 11-27-2024 22:43-0400 Systolic blood pressure 156 mm[Hg] Idania Petznick DO Work Phone: [facility] 10-29-2024 17:26-0500 Diastolic blood pressure 77 mm[Hg] Idania Petznick DO Work Phone: [facility] 10-29-2024 17:26-0500 Systolic blood pressure 175 mm[Hg] Idania Petznick DO Work Phone: [facility] 10-29-2024 16:38-0500 Body height 187.96 cm Idania Petznick DO Work Phone: [facility] 10-29-2024 16:38-0500 Body temperature 98.2 [degF] Idania Petznick DO Work Phone: [facility] 10-29-2024 16:38-0500 Body weight 141.6 kg Idania Petznick DO Work Phone: [facility] 10-29-2024 16:38-0500 Heart rate 80 /min Idania Petznick DO Work Phone: [facility] 10-29-2024 16:38-0500 Respiratory rate 18 /min Idania Petznick DO Work Phone: [facility] 10-29-2024 16:38-0500 SaO2% (BldA) [Mass fraction] 98 % Idania Petznick DO Work Phone: [facility] 10-02-2024 13:39-0500 Body height 188 cm Idania Petznick DO Work Phone: [facility] 10-02-2024 13:39-0500 Body mass index (BMI) [Ratio] 39.42 kg/m2 Idania Petznick DO Work Phone: [facility] 10-02-2024 13:39-0500 Body temperature 98.4 [degF] Idania Petznick DO Work Phone: [facility] 10-02-2024 13:39-0500 Body weight 139.25 kg Idania Petznick DO Work Phone: [facility] 10-02-2024 13:39-0500 Diastolic blood pressure 64 mm[Hg] Idania Petznick DO Work Phone: [facility] 10-02-2024 13:39-0500 Heart rate 85 /min Idania Petznick DO Work Phone: [facility] 10-02-2024 13:39-0500 SaO2% (BldA) [Mass fraction] 96 % Idania Petznick DO Work Phone: [facility] 10-02-2024 13:39-0500 Systolic blood pressure 110 mm[Hg] Idania Petznick DO Work Phone: [facility] 09-19-2024 10:09-0500 Body height 188 cm Idania Petznick DO Work Phone: [facility] 09-19-2024 10:09-0500 Body mass index (BMI) [Ratio] 41.09 kg/m2 Idania Petznick DO Work Phone: [facility] 09-19-2024 10:09-0500 Body temperature 98.29 [degF] Idania Petznick DO Work Phone: [facility] 09-19-2024 10:09-0500 Body weight 145.15 kg Idania Petznick DO Work Phone: [facility] 09-19-2024 10:09-0500 Diastolic blood pressure 68 mm[Hg] Idania Petznick DO Work Phone: [facility] 09-19-2024 10:09-0500 Heart rate 78 /min Idania Petznick DO Work Phone: [facility] 09-19-2024 10:09-0500 SaO2% (BldA) [Mass fraction] 95 % Idania Petznick DO Work Phone: [facility] 09-19-2024 10:09-0500 Systolic blood pressure 122 mm[Hg] Idania Petznick DO Work Phone: [facility] 09-04-2024 13:36-0500 Body height 188 cm Idania Petznick DO Work Phone: [facility] 09-04-2024 13:36-0500 Body mass index (BMI) [Ratio] 40.06 kg/m2 Idania Petznick DO Work Phone: [facility] 09-04-2024 13:36-0500 Body temperature 98.4 [degF] Idania Petznick DO Work Phone: [facility] 09-04-2024 13:36-0500 Body weight 141.52 kg Idania Petznick DO Work Phone: [facility] 09-04-2024 13:36-0500 Diastolic blood pressure 62 mm[Hg] Idania Petznick DO Work Phone: 1(589)761-703644 [place] [address] 09-04-2024 13:36-0500 Heart rate 81 /min Idania Petznick DO Work Phone: 0(182)969-315144 [place] [address] 09-04-2024 13:36-0500 SaO2% (BldA) [Mass fraction] 95 % Idania Petznick DO Work Phone: 0(383)085-967444 [place] [address] 09-04-2024 13:36-0500 Systolic blood pressure 124 mm[Hg] Idania Petznick DO Work Phone: 6(822)781-311144 [place] [address] 08-29-2024 01:08-0500 Body temperature 98 [degF] Idania Petznick DO Work Phone: 9(376)429-762398 [place] [address] 08-29-2024 01:08-0500 Diastolic blood pressure 68 mm[Hg] Idania Petznick DO Work Phone: 1(211)858-165498 [place] [address] 08-29-2024 01:08-0500 Heart rate 90 /min Idania Petznick DO Work Phone: 2(596)409-769398 [place] [address] 08-29-2024 01:08-0500 Respiratory rate 18 /min Idania Petznick DO Work Phone: 1(083)098-422298 [place] [address] 08-29-2024 01:08-0500 SaO2% (BldA) [Mass fraction] 95 % Idania Petznick DO Work Phone: 0(100)077-432498 [place] [address] 08-29-2024 01:08-0500 Systolic blood pressure 114 mm[Hg] Idania Petznick DO Work Phone: 6(119)539-477998 [place] [address] 08-28-2024 22:37-0500 Body height 187.96 cm Idania Petznick DO Work Phone: 1(320)537-120298 [place] [address] 08-28-2024 22:37-0500 Body weight 144.6 kg Idania Petznick DO Work Phone: 3(414)129-601098 [place] [address] 08-07-2024 13:53-0500 Body height 188 cm Idania Petznick DO Work Phone: 6(315)105-399744 [place] [address] 08-07-2024 13:53-0500 Body mass index (BMI) [Ratio] 40.19 kg/m2 Idania Petznick DO Work Phone: [facility] 08-07-2024 13:53-0500 Body temperature 96.91 [degF] Idania Petznick DO Work Phone: [facility] 08-07-2024 13:53-0500 Body weight 141.98 kg Idania Petznick DO Work Phone: [facility] 08-07-2024 13:53-0500 Diastolic blood pressure 78 mm[Hg] Idania Petznick DO Work Phone: [facility] 08-07-2024 13:53-0500 Heart rate 83 /min Idania Petznick DO Work Phone: [facility] 08-07-2024 13:53-0500 SaO2% (BldA) [Mass fraction] 91 % Idania Petznick DO Work Phone: [facility] 08-07-2024 13:53-0500 Systolic blood pressure 134 mm[Hg] Idania Petznick DO Work Phone: [facility] 05-16-2024 09:17-0400 Body height 188 cm Idania Petznick DO Work Phone: [facility] 05-16-2024 09:17-0400 Body mass index (BMI) [Ratio] 40.37 kg/m2 Idania Petznick DO Work Phone: [facility] 05-16-2024 09:17-0400 Body temperature 96.91 [degF] Idania Petznick DO Work Phone: [facility] 05-16-2024 09:17-0400 Body weight 142.61 kg Idania Petznick DO Work Phone: [facility] 05-16-2024 09:17-0400 Diastolic blood pressure 62 mm[Hg] Idania Petznick DO Work Phone: [facility] 05-16-2024 09:17-0400 Heart rate 81 /min Idania Petznick DO Work Phone: [facility] 05-16-2024 09:17-0400 SaO2% (BldA) [Mass fraction] 94 % Idania Petznick DO Work Phone: [facility] 05-16-2024 09:17-0400 Systolic blood pressure 154 mm[Hg] Idania Petznick DO Work Phone: [facility] 05-15-2024 14:51-0400 Body height 187.96 cm DO Idania Petznick Work Phone: [facility] 05-15-2024 14:51-0400 Body temperature 98.5 [degF] DO Idania Petznick Work Phone: 4(393)503-783321 [place] [address] 05-15-2024 14:51-0400 Body weight 142.25 kg DO Idania Petznick Work Phone: [facility] 05-15-2024 14:51-0400 Diastolic blood pressure 83 mm[Hg] DO Idania Petznick Work Phone: [facility] 05-15-2024 14:51-0400 Heart rate 64 /min DO Idania Petznick Work Phone: [facility] 05-15-2024 14:51-0400 Respiratory rate 21 /min DO Idania Petznick Work Phone: [facility] 05-15-2024 14:51-0400 SaO2% (BldA) [Mass fraction] 97 % DO Idania Petznick Work Phone: [facility] 05-15-2024 14:51-0400 Systolic blood pressure 183 mm[Hg] DO Idania Petznick Work Phone: [facility] 02-04-2024 12:00-0400 Diastolic blood pressure 73 mm[Hg] DO Idania Petznick Work Phone: [facility] 02-04-2024 12:00-0400 Heart rate 65 /min DO Idania Petznick Work Phone: [facility] 02-04-2024 12:00-0400 Respiratory rate 16 /min DO Idania Petznick Work Phone: [facility] 02-04-2024 12:00-0400 SaO2% (BldA) [Mass fraction] 96 % DO Idania Petznick Work Phone: [facility] 02-04-2024 12:00-0400 Systolic blood pressure 133 mm[Hg] DO Idania Petznick Work Phone: [facility] 02-04-2024 10:38-0400 Body height 187.96 cm DO Idania Petznick Work Phone: [facility] 02-04-2024 10:38-0400 Body temperature 98.5 [degF] DO Idania Petznick Work Phone: [facility] 02-04-2024 10:38-0400 Body weight 142.88 kg DO Idania Petznick Work Phone: [facility] 01-03-2024 09:34-0400 Body height 187.96 cm DO Idania Petznick Work Phone: [facility] 01-03-2024 09:34-0400 Body mass index (BMI) [Ratio] 40.4 kg/m2 DO Idania Petznick Work Phone: [facility] 01-03-2024 09:34-0400 Body temperature 97.8 [degF] DO Idania Petznick Work Phone: [facility] 01-03-2024 09:34-0400 Body weight 142.88 kg DO Idania Petznick Work Phone: [facility] 01-03-2024 09:34-0400 Diastolic blood pressure 72 mm[Hg] DO Idania Petznick Work Phone: [facility] 01-03-2024 09:34-0400 Heart rate 76 /min DO Idania Petznick Work Phone: [facility] 01-03-2024 09:34-0400 Respiratory rate 16 /min DO Idania Petznick Work Phone: [facility] 01-03-2024 09:34-0400 SaO2% (BldA) [Mass fraction] 98 % DO Idania Petznick Work Phone: [facility] 01-03-2024 09:34-0400 Systolic blood pressure 124 mm[Hg] DO Idania Petznick Work Phone: [facility] 12-24-2023 13:15-0400 Diastolic blood pressure 73 mm[Hg] DO Idania Petznick Work Phone: 1(452)657-679921 [place] [address] 12-24-2023 13:15-0400 Heart rate 76 /min DO Idania Petznick Work Phone: [facility] 12-24-2023 13:15-0400 Respiratory rate 16 /min DO Idania Petznick Work Phone: [facility] 12-24-2023 13:15-0400 SaO2% (BldA) [Mass fraction] 97 % DO Idania Petznick Work Phone: [facility] 12-24-2023 13:15-0400 Systolic blood pressure 135 mm[Hg] DO Idania Petznick Work Phone: [facility] 12-24-2023 11:05-0400 Body height 187.96 cm DO Idania Petznick Work Phone: [facility] 12-24-2023 11:05-0400 Body temperature 97.5 [degF] DO Idania Petznick Work Phone: [facility] 12-24-2023 11:05-0400 Body weight 142.88 kg DO Idania Petznick Work Phone: [facility] 12-06-2023 12:01-0400 Body height 187.96 cm DO Idania Petznick Work Phone: [facility] 12-06-2023 12:01-0400 Body mass index (BMI) [Ratio] 42 kg/m2 DO Idania Petznick Work Phone: 0(575)418-060398 [place] [address] 12-06-2023 12:01-0400 Body temperature 98 [degF] DO Idania Petznick Work Phone: 1(175)137-530298 [place] [address] 12-06-2023 12:01-0400 Body weight 148.77 kg DO Idania Petznick Work Phone: 8(071)414-260798 [place] [address] 12-06-2023 12:01-0400 Diastolic blood pressure 78 mm[Hg] DO Idania Petznick Work Phone: 5(982)001-902098 [place] [address] 12-06-2023 12:01-0400 Heart rate 82 /min DO Idania Petznick Work Phone: 6(938)231-228998 [place] [address] 12-06-2023 12:01-0400 SaO2% (BldA) [Mass fraction] 97 % DO Idania Petznick Work Phone: 3(371)260-474498 [place] [address] 12-06-2023 12:01-0400 Systolic blood pressure 132 mm[Hg] DO Idania Petznick Work Phone: 3(615)274-452298 [place] [address] 11-25-2023 14:43-0400 Heart rate 79 /min DO Idania Petznick Work Phone: 6(726)622-139798 [place] [address] 11-25-2023 14:36-0400 Body height 187.96 cm DO Idania Petznick Work Phone: 0(295)270-197298 [place] [address] 11-25-2023 14:36-0400 Body temperature 97.8 [degF] DO Idania Petznick Work Phone: 2(741)268-395298 [place] [address] 11-25-2023 14:36-0400 Body weight 148.7 kg DO Idania Petznick Work Phone: 8(559)271-578098 [place] [address] 11-25-2023 14:36-0400 Diastolic blood pressure 70 mm[Hg] DO Idania Petznick Work Phone: 7(222)909-260398 [place] [address] 11-25-2023 14:36-0400 Respiratory rate 18 /min DO Idania Petznick Work Phone: 0(057)774-578798 [place] [address] 11-25-2023 14:36-0400 SaO2% (BldA) [Mass fraction] 93 % DO Idania Petznick Work Phone: [facility] 11-25-2023 14:36-0400 Systolic blood pressure 169 mm[Hg] DO Idania Petznick Work Phone: [facility] 11-23-2023 14:47-0400 Body temperature 98 [degF] DO Idania Petznick Work Phone: [facility] 11-23-2023 14:47-0400 Diastolic blood pressure 79 mm[Hg] DO Idania Petznick Work Phone: 3(718)257-673021 [place] [address] 11-23-2023 14:47-0400 Heart rate 77 /min DO Idania Petznick Work Phone: 5(967)065-919021 [place] [address] 11-23-2023 14:47-0400 Respiratory rate 18 /min DO Idania Petznick Work Phone: [facility] 11-23-2023 14:47-0400 SaO2% (BldA) [Mass fraction] 98 % DO Idania Petznick Work Phone: [facility] 11-23-2023 14:47-0400 Systolic blood pressure 172 mm[Hg] DO Idania Petznick Work Phone: [facility] 11-23-2023 05:54-0400 Body weight 146.2 kg DO Idania Petznick Work Phone: [facility] 11-21-2023 11:53-0400 Body height 187.96 cm DO Idania Petznick Work Phone: [facility] 11-20-2023 21:43-0400 Body temperature 97.7 [degF] DO Idania Petznick Work Phone: [facility] 11-20-2023 21:30-0400 Diastolic blood pressure 76 mm[Hg] DO Idania Petznick Work Phone: [facility] 11-20-2023 21:30-0400 Heart rate 90 /min DO Idania Petznick Work Phone: [facility] 11-20-2023 21:30-0400 Respiratory rate 18 /min DO Idania Petznick Work Phone: [facility] 11-20-2023 21:30-0400 SaO2% (BldA) [Mass fraction] 95 % DO Idania Petznick Work Phone: [facility] 11-20-2023 21:30-0400 Systolic blood pressure 121 mm[Hg] DO Idania Petznick Work Phone: [facility] 11-20-2023 18:41-0400 Body height 187.96 cm DO Idania Petznick Work Phone: [facility] 11-20-2023 18:41-0400 Body weight 147.25 kg DO Idania Petznick Work Phone: [facility] 11-08-2023 09:45-0500 Body height 187.96 cm DO Idania Petznick Work Phone: [facility] 11-08-2023 09:45-0500 Body mass index (BMI) [Ratio] 41.1 kg/m2 DO Idania Petznick Work Phone: [facility] 11-08-2023 09:45-0500 Body temperature 97.1 [degF] DO Idania Petznick Work Phone: [facility] 11-08-2023 09:45-0500 Body weight 145.14 kg DO Idania Petznick Work Phone: [facility] 11-08-2023 09:45-0500 Diastolic blood pressure 70 mm[Hg] DO Idania Petznick Work Phone: [facility] 11-08-2023 09:45-0500 Heart rate 78 /min DO Idania Petznick Work Phone: [facility] 11-08-2023 09:45-0500 SaO2% (BldA) [Mass fraction] 92 % DO Idania Petznick Work Phone: [facility] 11-08-2023 09:45-0500 Systolic blood pressure 160 mm[Hg] DO Idania Petznick Work Phone: [facility] 10-27-2023 14:48-0500 Diastolic blood pressure 67 mm[Hg] DO Idania Petznick Work Phone: [facility] 10-27-2023 14:48-0500 Heart rate 83 /min DO Idania Petznick Work Phone: [facility] 10-27-2023 14:48-0500 Respiratory rate 16 /min DO Idania Petznick Work Phone: 1(418)588-374421 [place] [address] 10-27-2023 14:48-0500 SaO2% (BldA) [Mass fraction] 99 % DO Idania Petznick Work Phone: 8(487)914-132921 [place] [address] 10-27-2023 14:48-0500 Systolic blood pressure 142 mm[Hg] DO Idania Petznick Work Phone: [facility] 10-27-2023 13:12-0500 Body height 187.96 cm DO Idania Petznick Work Phone: [facility] 10-27-2023 13:12-0500 Body temperature 98 [degF] DO Idania Petznick Work Phone: [facility] 10-27-2023 13:12-0500 Body weight 154.22 kg DO Idania Petznick Work Phone: [facility] 10-13-2023 11:02-0500 Body height 188 cm Flakito High DO Work Phone: [facility] 10-13-2023 11:02-0500 Body mass index (BMI) [Ratio] 43.65 kg/m2 Flakito High DO Work Phone: [facility] 10-13-2023 11:02-0500 Body weight 154.22 kg Flakito High DO Work Phone: [facility] 10-06-2023 14:18-0500 Diastolic blood pressure 67 mm[Hg] DO Idania Petznick Work Phone: [facility] 10-06-2023 14:18-0500 Heart rate 71 /min DO Idania Petznick Work Phone: [facility] 10-06-2023 14:18-0500 Respiratory rate 16 /min DO Idania Petznick Work Phone: [facility] 10-06-2023 14:18-0500 SaO2% (BldA) [Mass fraction] 96 % DO Idania Petznick Work Phone: [facility] 10-06-2023 14:18-0500 Systolic blood pressure 141 mm[Hg] DO Idania Petznick Work Phone: [facility] 10-06-2023 13:05-0500 Inhaled oxygen flow rate 6 L/min DO Idania Petznick Work Phone: [facility] 10-06-2023 12:55-0500 Body temperature 97.2 [degF] DO Idania Petznick Work Phone: [facility] 10-06-2023 09:51-0500 Body height 187.96 cm DO Idania Petznick Work Phone: [facility] 10-06-2023 09:51-0500 Body mass index (BMI) [Ratio] 44.3 kg/m2 DO Idania Petznick Work Phone: [facility] 10-06-2023 09:51-0500 Body weight 156.48 kg DO Idania Petznick Work Phone: [facility] 10-04-2023 10:45-0500 Body height 187.96 cm Ramirez Jean Other [facility] 10-04-2023 10:45-0500 Body mass index (BMI) [Ratio] 44.29 kg/m2 Ramirez Jean Other [employer] Other 10-04-2023 10:45-0500 Body temperature 98 [degF] Ramirez Jacobrer Other [employer] [facility] [employer] Other 10-04-2023 10:45-0500 Body weight 156.49 kg Ramirez Jacobrer Other [facility] [employer] Other 10-04-2023 10:45-0500 Body weight 156.48 kg DO Idania Petznick Work Phone: [facility] 10-04-2023 10:45-0500 Diastolic blood pressure 72 mm[Hg] Ramirez Buehrer Other [facility] 10-04-2023 10:45-0500 SaO2% (BldA) [Mass fraction] 93 % Ramirez Jacobrer Other [facility] [employer] Other 10-04-2023 10:45-0500 Systolic blood pressure 150 mm[Hg] Ramirez Jacobrer Other [facility] 09-26-2023 00:38-0500 Diastolic blood pressure 69 mm[Hg] DO Idania Petznick Work Phone: [facility] 09-26-2023 00:38-0500 Heart rate 82 /min DO Idania Petznick Work Phone: [facility] 09-26-2023 00:38-0500 Respiratory rate 20 /min DO Idania Petznick Work Phone: [facility] 09-26-2023 00:38-0500 SaO2% (BldA) [Mass fraction] 96 % DO Idania Petznick Work Phone: [facility] 09-26-2023 00:38-0500 Systolic blood pressure 138 mm[Hg] DO Idania Petznick Work Phone: [facility] 09-25-2023 19:04-0500 Body height 184.15 cm DO Idania Petznick Work Phone: [facility] 09-25-2023 19:04-0500 Body temperature 97.9 [degF] DO Idania Petznick Work Phone: [facility] 09-25-2023 19:04-0500 Body weight 158 kg DO Idania Petznick Work Phone: [facility] 09-16-2023 16:09-0500 Diastolic blood pressure 62 mm[Hg] DO Idania Petznick Work Phone: 1(207)026-430721 [place] [address] 09-16-2023 16:09-0500 Heart rate 68 /min DO Idania Petznick Work Phone: 7(680)566-241467 [address] 09-16-2023 16:09-0500 Respiratory rate 16 /min DO Idania Petznick Work Phone: 7(916)654-475421 [place] [address] 09-16-2023 16:09-0500 SaO2% (BldA) [Mass fraction] 94 % DO Idania Petznick Work Phone: [facility] 09-16-2023 16:09-0500 Systolic blood pressure 119 mm[Hg] DO Idania Petznick Work Phone: [facility] 09-16-2023 13:54-0500 Body temperature 97.9 [degF] DO Idania Petznick Work Phone: [facility] 09-16-2023 13:24-0500 Inhaled oxygen flow rate 10 L/min DO Idania Petznick Work Phone: [facility] 09-16-2023 11:32-0500 Body mass index (BMI) [Ratio] 45.9 kg/m2 DO Idania Petznick Work Phone: [facility] 09-16-2023 11:26-0500 Body height 185.42 cm DO Idania Petznick Work Phone: 0(918)560-235621 [place] [address] 09-16-2023 11:26-0500 Body weight 157.85 kg DO Idania Petznick Work Phone: [facility] 06-16-2023 11:00-0400 Body height 187.96 cm Tondra Mapus Other [employer] Other 06-16-2023 11:00-0400 Body mass index (BMI) [Ratio] 43.93 kg/m2 Tondra Mapus Other [employer] Other 06-16-2023 11:00-0400 Body weight 155.22 kg Tondra Mapus Other [employer] Other 06-16-2023 11:00-0400 Diastolic blood pressure 82 mm[Hg] Tondra Mapus Other [employer] Other 06-16-2023 11:00-0400 Respiratory rate 18 /min Tondra Mapus Other [employer] Other 06-16-2023 11:00-0400 SaO2% (BldA) [Mass fraction] 98 % Tondra Mapus Other [employer] Other 06-16-2023 11:00-0400 Systolic blood pressure 160 mm[Hg] Tondra Mapus Other [employer] Other 11-07-2022 16:00-0500 Body temperature 97.8 [degF] DO Idania Petznick Work Phone: [facility] 11-07-2022 16:00-0500 Diastolic blood pressure 75 mm[Hg] DO Idania Petznick Work Phone: [facility] 11-07-2022 16:00-0500 Heart rate 86 /min DO Idania Petznick Work Phone: 6(388)811-541867 [address] 11-07-2022 16:00-0500 Respiratory rate 16 /min DO Idania Petznick Work Phone: 7(939)862-231798 [place] [address] 11-07-2022 16:00-0500 SaO2% (BldA) [Mass fraction] 96 % DO Idania Petznick Work Phone: 6(690)657-243467 [address] 11-07-2022 16:00-0500 Systolic blood pressure 162 mm[Hg] DO Idania Petznick Work Phone: 5(947)775-666998 [place] [address] 11-07-2022 06:00-0500 Body weight 144.9 kg DO Idania Petznick Work Phone: 1(612)748-290798 [place] [address] 11-06-2022 14:55-0500 Inhaled oxygen flow rate 3 L/min DO Idania Petznick Work Phone: 4(904)017-678898 [place] [address] 11-06-2022 13:24-0500 Body height 187.96 cm DO Idania Petznick Work Phone: 4(557)016-173098 [place] [address] 11-06-2022 13:24-0500 Body mass index (BMI) [Ratio] 41 kg/m2 DO Idania Petznick Work Phone: 1(067)192-791321 [place] [address] 11-04-2022 20:00-0500 Diastolic blood pressure 94 mm[Hg] DO Idania Petznick Work Phone: 0(609)922-312698 [place] [address] 11-04-2022 20:00-0500 Heart rate 81 /min DO Idania Petznick Work Phone: 2(923)665-704367 [address] 11-04-2022 20:00-0500 Respiratory rate 20 /min DO Idania Petznick Work Phone: 3(344)431-915521 [place] [address] 11-04-2022 20:00-0500 SaO2% (BldA) [Mass fraction] 97 % DO Idania Petznick Work Phone: 0(694)746-097921 [place] [address] 11-04-2022 20:00-0500 Systolic blood pressure 186 mm[Hg] DO Idania Petznick Work Phone: 1(651)373-906367 [address] 11-04-2022 13:57-0500 Body height 187.96 cm DO Idania Petznick Work Phone: [facility] 11-04-2022 13:57-0500 Body temperature 99.1 [degF] DO Idania Petznick Work Phone: [facility] 11-04-2022 13:57-0500 Body weight 145 kg DO Idania Petznick Work Phone: [facility] 11-01-2022 23:00-0500 Diastolic blood pressure 70 mm[Hg] DO Idania Petznick Work Phone: [facility] 11-01-2022 23:00-0500 Heart rate 80 /min DO Idania Petznick Work Phone: [facility] 11-01-2022 23:00-0500 Respiratory rate 20 /min DO Idania Petznick Work Phone: [facility] 11-01-2022 23:00-0500 SaO2% (BldA) [Mass fraction] 98 % DO Idania Petznick Work Phone: [facility] 11-01-2022 23:00-0500 Systolic blood pressure 162 mm[Hg] DO Idania Petznick Work Phone: [facility] 11-01-2022 21:02-0500 Body height 187.96 cm DO Idania Petznick Work Phone: [facility] 11-01-2022 21:02-0500 Body temperature 98 [degF] DO Idania Petznick Work Phone: [facility] 11-01-2022 21:02-0500 Body weight 149.7 kg DO Idania Petznick Work Phone: [facility] 10-10-2022 05:23-0500 Diastolic blood pressure 81 mm[Hg] DO Idania Petznick Work Phone: [facility] 10-10-2022 05:23-0500 Heart rate 92 /min DO Idania Petznick Work Phone: [facility] 10-10-2022 05:23-0500 Respiratory rate 20 /min DO Idania Petznick Work Phone: [facility] 10-10-2022 05:23-0500 SaO2% (BldA) [Mass fraction] 98 % DO Idania Petznick Work Phone: [facility] 10-10-2022 05:23-0500 Systolic blood pressure 165 mm[Hg] DO Idania Petznick Work Phone: [facility] 10-10-2022 04:13-0500 Body height 187.96 cm DO Idania Petznick Work Phone: [facility] 10-10-2022 04:13-0500 Body temperature 97.1 [degF] DO Idania Petznick Work Phone: [facility] 10-10-2022 04:13-0500 Body weight 152 kg DO Idania Petznick Work Phone: [facility] 09-23-2022 04:15-0500 Diastolic blood pressure 89 mm[Hg] DO Idania Petznick Work Phone: [facility] 09-23-2022 04:15-0500 Heart rate 72 /min DO Idania Petznick Work Phone: 5(292)749-512221 [place] [address] 09-23-2022 04:15-0500 Respiratory rate 18 /min DO Idania Petznick Work Phone: [facility] 09-23-2022 04:15-0500 SaO2% (BldA) [Mass fraction] 98 % DO Idania Petznick Work Phone: [facility] 09-23-2022 04:15-0500 Systolic blood pressure 156 mm[Hg] DO Idania Petznick Work Phone: [facility] 09-22-2022 22:41-0500 Body height 187.96 cm DO Idania Petznick Work Phone: [facility] 09-22-2022 22:41-0500 Body temperature 98.2 [degF] DO Idania Petkorina Work Phone: [facility] 09-22-2022 22:41-0500 Body weight 144.75 kg DO Idania Petkorina Work Phone: [facility] 08-12-2022 16:00-0500 Body height 187.96 cm Ada Moody Other [employer] Other 08-12-2022 16:00-0500 Body mass index (BMI) [Ratio] 40.36 kg/m2 Ada Moody Other [employer] Other 08-12-2022 16:00-0500 Body temperature 97.7 [degF] Ada Moody Other [employer] Other 08-12-2022 16:00-0500 Body weight 142.61 kg Ada Moody Other [employer] Other 08-12-2022 16:00-0500 Diastolic blood pressure 62 mm[Hg] Ada Moody Other [employer] Other 08-12-2022 16:00-0500 Respiratory rate 18 /min Ada Moody Other [employer] Other 08-12-2022 16:00-0500 SaO2% (BldA) [Mass fraction] 96 % Ada Moody Other [employer] Other 08-12-2022 16:00-0500 Systolic blood pressure 138 mm[Hg] Ada Moody Other [employer] Other 07-29-2022 02:30-0500 Diastolic blood pressure 75 mm[Hg] DO Idania Petznick Work Phone: [facility] 07-29-2022 02:30-0500 Heart rate 80 /min DO Idania Petznick Work Phone: [facility] 07-29-2022 02:30-0500 Respiratory rate 20 /min DO Idania Petznick Work Phone: [facility] 07-29-2022 02:30-0500 SaO2% (BldA) [Mass fraction] 94 % DO Idania Petznick Work Phone: 1(085)266-478121 [place] [address] 07-29-2022 02:30-0500 Systolic blood pressure 121 mm[Hg] DO Idania Petznick Work Phone: [facility] 07-29-2022 00:02-0500 Body height 185.42 cm DO Idania Petznick Work Phone: [facility] 07-29-2022 00:02-0500 Body temperature 97.6 [degF] DO Idania Petznick Work Phone: [facility] 07-29-2022 00:02-0500 Body weight 143.7 kg DO Idania Petznick Work Phone: [facility] 07-17-2022 13:130500 Body height 182.88 cm Sj Fuzz 07-17-2022 13:13-0500 Body mass index (BMI) [Ratio] 42.31 kg/m2 [employer] [employer] 07-17-2022 13:130500 Body surface area Derived from formula 2.68 m2 Sj [employer] 07-17-2022 13:130500 Body weight 141.52 kg Sj [employer] 07-17-2022 13:13-0500 Body weight 0.1 {percentile} [employer]j [employer] 07-17-2022 13:13-0500 Diastolic blood pressure 70 mm[Hg] Sj [employer] 07-17-2022 13:13-0500 Heart rate 64 /min Sj [employer]zz 07-17-2022 13:13-0500 Systolic blood pressure 130 mm[Hg] Sj [employer] 05-20-2022 17:20-0400 Body height 187.96 cm Ada Moody Other [employer] Other 05-20-2022 17:20-0400 Body mass index (BMI) [Ratio] 39.77 kg/m2 Ada Moody Other [employer] Other 05-20-2022 17:20-0400 Body temperature 96.4 [degF] Ada Moody Other [employer] Other 05-20-2022 17:20-0400 Body weight 140.53 kg Ada Moody Other [employer] Other 05-20-2022 17:20-0400 Diastolic blood pressure 72 mm[Hg] Ada Moody Other [employer] Other 05-20-2022 17:20-0400 Respiratory rate 18 /min Ada Moody Other [employer] Other 05-20-2022 17:20-0400 SaO2% (BldA) [Mass fraction] 97 % Ada Moody Other [employer] Other 05-20-2022 17:20-0400 Systolic blood pressure 150 mm[Hg] Ada Moody Other [employer] Other 03-12-2022 17:20-0400 Body height 187.96 cm Ada Moody Other [employer] Other 03-12-2022 17:20-0400 Body mass index (BMI) [Ratio] 38.68 kg/m2 Ada Moody Other [employer] Other 03-12-2022 17:20-0400 Body temperature 96.4 [degF] Ada Moody Other [employer] Other 03-12-2022 17:20-0400 Body weight 136.67 kg Ada Moody Other [employer] Other 03-12-2022 17:20-0400 Diastolic blood pressure 88 mm[Hg] Ada Moody Other [employer] Other 03-12-2022 17:20-0400 Respiratory rate 18 /min Ada Moody Other [employer] Other 03-12-2022 17:20-0400 SaO2% (BldA) [Mass fraction] 98 % Ada Moody Other [employer] Other 03-12-2022 17:20-0400 Systolic blood pressure 160 mm[Hg] Ada Moody Other [employer] Other 12-03-2021 17:20-0400 Body height 248.92 cm Ada Moody Other [employer] Other 12-03-2021 17:20-0400 Body mass index (BMI) [Ratio] 22.48 kg/m2 Ada Moody Other [employer] Other 12-03-2021 17:20-0400 Body temperature 96.7 [degF] Ada Moody Other [employer] Other 12-03-2021 17:20-0400 Body weight 139.3 kg Ada Moody Other [employer] Other 12-03-2021 17:20-0400 Diastolic blood pressure 90 mm[Hg] Ada Moody Other [employer] Other 12-03-2021 17:20-0400 Respiratory rate 18 /min Ada Moody Other [employer] Other 12-03-2021 17:20-0400 SaO2% (BldA) [Mass fraction] 96 % Ada Moody Other [employer] Other 12-03-2021 17:20-0400 Systolic blood pressure 160 mm[Hg] Ada Moody Other [employer] Other Encounters Encounter Date Encounter Type Care Provider Facility Start: 05-11-2025 [facility] Start: 05-10-2025 End: 05-10-2025 ambulatory KAYLEE MESA [facility] Start: 04-27-2025 End: 04-27-2025 ambulatory ALEC JACOBSON [facility] Start: 04-26-2025 End: 04-26-2025 Emergency department patient visit [facility] Comment on above: Chronic foot pain, u nspecified laterality (Primary Dx) Start: 04-24-2025 End: 04-24-2025 Emergency department patient visit Idania Ricketts DO Work Phone: -Emergency Room Work Phone: Start: 04-10-2025 End: 04-10-2025 Emergency department patient visit [facility] Start: 04-06-2025 End: 04-27-2025 Telephone encounter Marielos Abreu RN [facility] Comment on above: Medication Start: 04-05-2025 End: 04-05-2025 Office outpatient new 45 minutes Kaylee Mesa PA Work Phone: [facility] Comment on above: Spinal stenosis of l umbar region with neurogenic claudication (Primary Dx); Diabetic peripheral neuropathy ([facility]) Start: 04-05-2025 End: 04-05-2025 ambulatory KAYLEE MESA [facility] Start: 03-28-2025 End: 03-29-2025 Emergency department patient visit [facility] Start: 03-26-2025 End: 03-26-2025 Emergency department patient visit Idania Ricketts DO Work Phone: -Emergency Room Work Phone: Start: 03-11-2025 End: 03-11-2025 Emergency department patient visit Idania Ricketts DO Work Phone: -Emergency Room Work Phone: Start: 03-07-2025 End: 03-07-2025 ambulatory Idania Ricketts DO Work Phone: [facility] Work Phone: Start: 03-07-2025 End: 03-07-2025 Patient encounter procedure Jey Ramos MD [facility] Work Phone: Start: 03-01-2025 End: 03-01-2025 Refill Idania Ricketts DO Work Phone: [facility] Comment on above: 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) Start: 02-20-2025 Non-patient / Non-visit [facility]in [facility] Work Phone: Start: 02-13-2025 End: 02-13-2025 ambulatory Idania Petznick DO Work Phone: [facility] Work Phone: Start: 02-13-2025 End: 02-13-2025 Patient encounter procedure Idania Petznick DO Work Phone: [facility] Work Phone: Start: 02-02-2025 End: 02-02-2025 Emergency department patient visit Delano Makayla [facility] Start: 02-02-2025 End: 02-02-2025 Emergency department patient visit Sherley Templeton MD Work Phone: [facility] Emergency Department Comment on above: Idiopathic periphera l neuropathy (Primary Dx); End stage renal disease (HCC); Hyperkalemia Start: 01-01-2025 End: 01-02-2025 Emergency department patient visit Idania Monahanznick DO Work Phone: [facility] Work Phone: Start: 12-30-2024 End: 12-30-2024 ambulatory [facility] Start: 12-29-2024 End: 12-29-2024 Emergency department patient visit Idania Monahanznick DO Work Phone: [facility] Work Phone: Start: 12-27-2024 End: 12-27-2024 Emergency department patient visit [facility] Start: 12-21-2024 [facility] Start: 12-21-2024 ambulatory HEAVENLY BUENO [facility] Start: 12-12-2024 End: 12-12-2024 ambulatory [facility] Start: 12-12-2024 End: 12-12-2024 ambulatory [facility] Start: 12-12-2024 End: 12-12-2024 Encounter for other preprocedural examination [facility] Start: 12-06-2024 End: 12-06-2024 Emergency department patient visit [facility] Start: 12-05-2024 End: 12-05-2024 Emergency department patient visit [facility] Start: 12-05-2024 End: 12-05-2024 Bamboo flowsheet Idania Rossick DO Work Phone: [facility] Start: 12-05-2024 End: 12-05-2024 Bamboo flowsheet Idania Rossick DO Work Phone: [facility] Start: 12-05-2024 End: 12-05-2024 Office outpatient visit 25 minutes Idania Ricketts DO Work Phone: [facility] Comment on above: Type [...] of amputation of lesser toe, left (HCC) ([facility]/HCC) Start: 12-05-2024 End: 12-05-2024 ambulatory IDANIA RICKETTS Not Available Start: 11-27-2024 End: 11-28-2024 Emergency department patient visit Idania Ricketts DO Work Phone: [facility] Work Phone: Start: 11-27-2024 End: 11-27-2024 Emergency department patient visit MONTGOMERY Maeve [facility] Start: 11-27-2024 End: 11-27-2024 Emergency department patient visit [facility] Start: 11-27-2024 End: 11-27-2024 Telephone encounter Idania Ricketts DO Work Phone: [facility] 230 Comment on above: Med Refill Start: 11-23-2024 [facility] Start: 11-23-2024 ambulatory CHONG COOLEY [facility] Start: 11-07-2024 End: 11-07-[address] [facility] Start: 10-31-2024 End: 10-31-2024 ambulatory JOY WATERS [facility] Start: 10-29-2024 End: 10-30-2024 ambulatory Maxime Magana Facility:[facility] Start: 10-29-2024 End: 10-30-2024 Evaluation and management of inpatient Idania Ricketts DO Work Phone: [facility] [place] [address] Surgical Work Phone: Start: 10-25-2024 End: 10-26-2024 Emergency department patient visit MONTGOMERY [facility] Start: 10-17-2024 End: 10-17-2024 ambulatory JOY WATERS [facility] Start: 10-17-2024 End: 10[facility] Start: 10-13-[facility]24 End: 10-13-2024 ambulatory IDANIA RICKETTS Facility:[facility] Start: 10-04-2024 End: 10-04-2024 Telephone encounter Idania Ricketts DO Work Phone: [facility] Comment on above: Referral Start: 10-03-2024 End: 10-03-2024 ambulatory GI MONDRAGON Not Available Start: 10-03-2024 End: 10-03-2024 Office outpatient visit 15 minutes Gi Mondragon DPM Work Phone: [facility] Comment on above: Neuropathy (Primary Dx); Ulcer of right heel and midfoot with fat layer exposed (CMS/HCC); Ulcer of right foot, limited to breakdown of skin (CMS/HCC); Type 2 diabetes mellitus with peripheral neuropathy (CMS/HCC); Chronic kidney disease due to diabetes mellitus (CMS/HCC) Start: 10-02-2024 End: 10-02-2024 Office outpatient visit 15 minutes Idania Ricketts DO Work Phone: [facility] Comment on above: Bilious vomiting wit h nausea (Primary Dx); Type 2 diabetes mellitus with peripheral neuropathy (CMS/HCC) Start: 10-02-2024 End: 10-02-2024 ambulatory IDANIA RICKETTS Not Available Start: 09-19-2024 End: 09-19-2024 Office outpatient visit 15 minutes Idania Ricketts DO Work Phone: [facility] Comment on above: Lymphedema (Primary Dx); End stage renal disease (CMS/HCC); Venous stasis dermatitis Start: 09-19-2024 End: 09-19-2024 Patient encounter procedure Gi Mondragon DPM Work Phone: [facility] Comment on above: Ulcer of right heel and midfoot with fat layer exposed (CMS/HCC) (Primary Dx); Ulcer of right foot, limited to breakdown of skin (CMS/HCC); Type 2 diabetes mellitus with peripheral neuropathy ([facility]); Neuropathy Start: 09-19-2024 End: 09-19-2024 ambulatory IDANIA ROSSICK Not Available Start: 09-12-2024 End: 09-12-2024 Telephone encounter Idania Ricketts DO Work Phone: [facility] Start: 09-12-2024 End: 09-12-2024 ambulatory [facility] Start: 09-05-2024 End: 09-05-2024 ambulatory [facility] Start: 09-04-2024 End: 09-04-2024 Office outpatient [...] patient visit Idania Rossick DO Work Phone: [facility] Work Phone: Start: 08-22-2024 End: 08-22-2024 ambulatory [facility] Start: 08-22-2024 End: 08-22-2024 ambulatory [facility] Start: 08-08-2024 End: 08-08-2024 ambulatory [facility] Start: 08-08-2024 ambulatory UNKNOWN BRADLEY POWER [facility] Start: 08-07-2024 End: 08-07-2024 Office outpatient visit 25 minutes Idania Monahanznick DO Work Phone: [facility] Comment on above: Obstructive sleep ap bo syndrome (Primary Dx); 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 ([facility]/HCC); Type 2 diabetes mellitus with peripheral neuropathy ([facility]/HCC); Essential hypertension ([facility]/HCC); Peripheral vascular disease ([facility]/HCC); End stage renal disease ([facility]/HCC); Acquired hypothyroidism ([facility]/HCC); Type 2 diabetes mellitus with ESRD (end-stage renal disease) ([facility]); 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, with long-term current use of insulin ([facility]); Chronic kidney disease with end stage renal disease on dialysis due to type 2 diabetes mellitus ([facility]); Anxiety; Dependence on renal dialysis ([facility]/HCC); Pure hypercholesterolemia ([facility]/HCC); Long-term insulin use ([facility]); Hx of amputation of lesser toe, left ([facility]) ([facility]); Class 3 severe obesity due to excess calories with serious comorbidity and body mass index (BMI) of 40.0 to 44.9 in adult ([facility]); Inguinal adenopathy Start: 08-07-2024 End: 08-07-2024 ambulatory IDANIA RICKETTS Not Available Start: 07-28-2024 End: 07-28-[address] [facility] Start: 07-27-2024 End: 07-27-2024 ambulatory [facility] Start: 07-27-2024 End: 07-27-2024 Encounter for preprocedural cardiovascular examination [facility] Start: 07-25-2024 End: 07-25-[address] [facility] Start: 07-18-2024 End: 07-18-[address] [facility] Start: 07-11-2024 Encounter for prepro cedural cardiovascular examination [facility] Start: 07-11-2024 End: 07-11-2024 ambulatory BERTIN [facility] Start: 07-11-[address] [facility] Start: 06-29-2024 End: 06-29-2024 Josselin Mondragon DPM Work Phone: [facility] Start: 06-29-2024 End: 06-29-2024 Bamboo flowsheet Gi Mondragon DPM Work Phone: [facility] Start: 06-29-2024 End: 06-29-2024 Patient encounter procedure Gi Mondragon DPM Work Phone: [facility] Comment on above: Ulcer of right heel and midfoot with fat layer exposed (CMS/HCC) (Primary Dx); Ulcer of right foot, limited to breakdown of skin (CMS/HCC); Type 2 diabetes mellitus with peripheral neuropathy (CMS/HCC); Neuropathy Start: 06-29-2024 End: 06-29-2024 ambulatory GI MONDRAGON Not Available Start: 06-22-2024 End: 06-22-2024 ambulatory [facility] Start: 06-20-2024 End: 06-20-2024 ambulatory ANYA [facility] Start: 06-13-2024 End: 06-13-[address] [facility] Start: 06-08-2024 End: 06-08-2024 Bamboo flowsheet Gi Mondragon DPM Work Phone: [facility] Start: 06-08-2024 End: 06-08-2024 Bamboo flowsheet Gi Mondragon DPM Work Phone: [facility] Start: 06-08-2024 End: 06-08-2024 Patient encounter procedure Gi Mondragon DPM Work Phone: [facility] Comment on above: Ulcer of right heel and midfoot with fat layer exposed (CMS/HCC) (Primary Dx); Type 2 diabetes mellitus with peripheral neuropathy (CMS/HCC); Neuropathy Start: 06-08-2024 End: 06-08-2024 ambulatory GI MONDRAGON Not Available Start: 05-30-2024 End: 05-31-2024 Telephone encounter Sophia Martini MA [facility] Start: 05-26-2024 End: 05-26-2024 ambulatory [facility] Start: 05-23-2024 ambulatory PEDRO YATESKIRBYDIMITRIS Eleno [facility] Start: 05-18-2024 End: 05-18-2024 Bamboo flowsheet Gi Mondragon DPM Work Phone: [facility] Start: 05-18-2024 End: 05-18-2024 Bamboo flowsheet Gi Mondragon DPM Work Phone: [facility] Start: 05-18-2024 End: 05-18-2024 Patient encounter procedure Gi Mondragon DPM Work Phone: [facility] Comment on above: Ulcer of [...] 15 minutes Idania Ricketts DO Work Phone: [facility] Comment on above: Type 2 diabetes conrad itus with peripheral neuropathy (CMS/HCC) (Primary Dx); Anxiety Start: 05-15-2024 End: 05-15-2024 Emergency department patient visit DO Idania Rossick Work Phone: [facility] Work Phone: Start: 05-04-2024 End: 05-04-2024 Bamboo flowsheet Gi Mondragon DPM Work Phone: [facility] Start: 05-04-2024 End: 05-04-2024 Bamboo flowsheet Gi Mondragon DPM Work Phone: [facility] Start: 05-04-2024 End: 05-04-2024 Patient encounter procedure Gi Mondragon DPM Work Phone: [facility] Comment on above: Ulcer of right heel and midfoot with fat layer exposed (CMS/HCC) (Primary Dx); Ulcer of right foot, limited to breakdown of skin (CMS/HCC) Start: 05-04-2024 End: 05-04-2024 ambulatory GI MONDRAGON Not Available Start: 04-26-2024 End: 04-27-2024 Refalicia Guadalupe Close [employer]ER [employer]ICE [employer]IST [facility] Comment on above: 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 ([facility]/HCC) Start: 04-13-2024 End: 04-13-2024 ambulatory GI MONDRAGON [...] surgery center DO Idania Ricketts Work Phone: [facility] [place] Start: 02-04-2024 End: 02-04-2024 ambulatory DO Idania Petkorina Work Phone: [facility] Work Phone: Start: 02-02-2024 End: 02-02-2024 ambulatory GI MONDRAGON Not Available Start: 01-24-2024 End: 01-24-2024 ambulatory GI MONDRAGON Not Available Start: 2024 End: 2024 ambulatory GI H MONDRAGON Not Available Start: 01-03-2024 End: 01-03-2024 ambulatory DO Idania Petznick Work Phone: [facility] Work Phone: Start: 01-03-2024 End: 01-03-2024 Patient encounter procedure DO Idania Petznick Work Phone: [facility] Vascular Surgery Work Phone: Start: 12-27-2023 End: 12-27-2023 ambulatory GI H MONDRAGON Not Available Start: 12-24-2023 End: 12-24-2023 Admission to same day surgery center DO Idania Petznick Work Phone: [facility] [place] Start: 12-24-2023 End: 12-24-2023 ambulatory DO Idania Petznick Work Phone: [facility] Work Phone: Start: 12-21-2023 End: 12-21-2023 ambulatory GI H MONDRAGON Not Available Start: 12-08-2023 End: 12-08-2023 ambulatory GI H MONDRAGON Not Available Start: 12-06-2023 End: 12-06-2023 ambulatory DO Idania Petznick Work Phone: [facility] Work Phone: Start: 12-06-2023 End: 12-06-2023 Patient encounter procedure DO Idania Petznick Work Phone: [facility] Vascular Surgery Work Phone: Start: 11-25-2023 End: 11-25-2023 Emergency department patient visit DO Idania Petznick Work Phone: [facility] Work Phone: Start: 11-22-2023 End: 11-23-2023 Non-patient / Non-visit DO Idania Petznick Work Phone: [facility] Infectious Disease Work Phone: Start: 11-21-2023 End: 11-23-2023 Non-patient / Non-visit DO Idania Petznick Work Phone: [facility] Nephrology Work Phone: Start: 11-20-2023 End: 11-23-2023 Non-patient / Non-visit DO Idania Petznick Work Phone: [facility] Work Phone: Start: 11-20-2023 End: 11-23-2023 Evaluation and management of inpatient DO Idania Petznick Work Phone: [facility] [place] [facility] Work Phone: Start: 11-15-2023 End: 12-21-2023 ambulatory DO Idania Petznick Work Phone: [facility] Work Phone: Start: 11-15-2023 End: 12-21-2023 Discharged Recurring DO Idania Petznick Work Phone: [facility]-Infusion Therapy - O/P Work Phone: Start: 11-15-2023 Registered Recurring DO Alliso n Petznick Work Phone: [facility]-Infusion Therapy - O/P Work Phone: Start: 11-08-2023 End: 11-08-2023 Patient encounter procedure DO Idania Petznick Work Phone: [facility] Vascular Surgery Work Phone: Start: 10-27-2023 End: 10-27-2023 Admission to same day surgery center DO Idania Petznick Work Phone: [facility] [place] Start: 10-27-2023 End: 10-27-2023 ambulatory DO Idania Petznick Work Phone: [facility] Work Phone: Start: 10-18-2023 External Result Encounter Flakito C Laffay DO Work Phone: [facility] Unsolicited Start: 10-18-2023 External Result Encounter Flakito High DO Work Phone: [facility] Unsolicited Start: 10-18-2023 End: 10-18-2023 ambulatory DO Idania Petznick Work Phone: [facility] Work Phone: Start: 10-18-2023 End: 10-18-2023 Patient encounter procedure DO Idania Petznick Work Phone: [facility] [facility] Work Phone: Start: 10-13-2023 Chart abstracting Flakito bah DO Work Phone: [facility] Start: 10-13-2023 End: 10-13-2023 Office outpatient visit 25 minutes Flakito High DO Work Phone: [facility] Comment on above: Peritoneal dialysis catheter dysfunction, subsequent encounter (CMS/HCC) (Primary Dx) Start: 10-07-2023 End: 10-07-2023 ambulatory Tondra Kennedy Other [employer] Other Start: 10-07-2023 Telephone encounter Michelle Kennedy [facility] Start: 10-06-2023 Non-patient / Non-visit DO All kavita Petznick Work Phone: [facility] Vascular Surgery Work Phone: Start: 10-04-2023 End: 10-04-2023 ambulatory Ramirez Jean Other [employer] Other Start: 10-04-2023 Office outpatient vi sit 25 minutes Ramirez Jean [facility] Vascular Surgery Start: 10-04-2023 End: 10-04-2023 Patient encounter procedure DO Idania Petznick Work Phone: [facility]- Start: 09-27-2023 End: 09-27-2023 ambulatory DO Idania Petznick Work Phone: [facility] Work Phone: Start: 09-27-2023 End: 09-27-2023 Patient encounter procedure DO Idania Petznick Work Phone: [facility]-Ultrasound [facility] [place] Work Phone: Start: 09-25-2023 End: 09-26-2023 Emergency department patient visit DO Idania Petznick Work Phone: [facility]-Emergency Room Work Phone: Start: 09-16-2023 End: 09-16-2023 Admission to same day surgery center DO Idania Petznick Work Phone: [facility]-Surgery Center [facility] [place] Start: 09-16-2023 End: 09-16-2023 ambulatory DO Idania Petznick Work Phone: [facility] Work Phone: Start: 08-26-2023 End: 08-26-2023 ambulatory Rasheeda Fitt Other [employer] Other Start: 08-26-2023 Telephone encounter Rasheeda Byront [facility] Start: 08-10-2023 End: 08-10-2023 ambulatory Tondra Mapus Other [employer] Other Start: 08-10-2023 Telephone encounter Tondra Mapus [facility] Start: 08-09-2023 End: 08-09-2023 Emergency department patient visit DO Idania Petznick Work Phone: [facility]-Emergency Room Work Phone: Start: 07-27-2023 End: 07-27-2023 ambulatory Tondra Mapus Other [employer] Other Start: 07-27-2023 Telephone encounter Tondra Mapus [facility] Start: 07-14-2023 End: 07-14-2023 ambulatory Tondra Mapus Other [employer] Other Start: 07-14-2023 Telephone encounter Tondra Mapus [facility] Start: 07-07-2023 End: 07-07-2023 ambulatory Tondra Mapus Other [employer] Other Start: 07-07-2023 Telephone encounter Tondra Mapus [facility] Start: 06-28-2023 End: 06-28-2023 ambulatory Tondra Mapus Other [employer] Other Start: 06-28-2023 Telephone encounter Tondra Mapus [facility] Start: 06-26-2023 End: 06-26-2023 ambulatory DO Idania Rossick Work Phone: [facility] Work Phone: Start: 06-26-2023 End: 06-26-2023 Patient encounter procedure DO Idania Petznick Work Phone: [facility]-Lab [facility] [place] Work Phone: Start: 06-22-2023 End: 06-22-2023 ambulatory Tondra Mapus Other [employer] Other Start: 06-22-2023 Telephone encounter Tondra Mapus [facility] Start: 06-21-2023 End: 06-21-2023 ambulatory Tondra Mapus Other [employer] Other Start: 06-21-2023 Telephone encounter Tondra Mapus [facility] Start: 06-16-2023 Registered Recurring DO Alliso n Petznick Work Phone: [facility]-Diabetes Care Center Work Phone: Start: 06-16-2023 End: 06-16-2023 ambulatory Michelle Kennedy Other [employer] Other Start: 06-16-2023 FQ visit new patient Michelle Kennedy [facility] Start: 03-11-2023 Office Services Sj P November and Other [facility] Start: 01-29-2023 Office Services Sj P November and Other [facility] Start: 12-18-2022 Office Services Sj P November and Other [facility] Start: 12-04-2022 (Dialysis T) Dialysi s Training Ada Moody [facility] Start: 12-04-2022 End: 12-04-2022 ambulatory Ada Moody Other [employer] Other Start: 11-20-2022 End: 11-20-2022 ambulatory DO Idania Petznick Work Phone: [facility] Work Phone: Start: 11-20-2022 End: 11-20-2022 Patient encounter procedure DO Idania Petznick Work Phone: [facility] [place] Work Phone: Start: 11-13-2022 Office Services Sj P November and Other [facility] Start: 11-04-2022 End: 11-07-2022 Evaluation and management of inpatient DO Idania Petznick Work Phone: [facility] [place] [facility] Work Phone: Start: 11-04-2022 End: 11-04-2022 ambulatory Ada Moody Other [employer] Other Start: 11-04-2022 Telephone encounter Ada Moody [facility] Start: 11-02-2022 End: 11-02-2022 ambulatory DO Idaniakavita Ricketts Work Phone: [facility] Work Phone: Start: 11-02-2022 End: 11-02-2022 Patient encounter procedure DO Idaniakavita Ricketts Work Phone: [facility] [place] Work Phone: Start: 11-01-2022 End: 11-01-2022 Emergency department patient visit DO Idaniakavita Ricketts Work Phone: [facility]-Emergency Room Work Phone: Start: 10-26-2022 Office Services Sj Singh November and Other [facility] Start: 10-10-2022 End: 10-10-2022 Emergency department patient visit DO Idania Ricketts Work Phone: [facility] Work Phone: Start: 10-09-2022 End: 10-10-2022 ambulatory Sj Francois DPM Facility:[facility] Start: 10-09-2022 Office Services Sj Singh November and Other [facility] Start: 09-22-2022 End: 09-23-2022 Emergency department patient visit DO Idania Ricketts Work Phone: [facility] Work Phone: Start: 08-14-2022 Office Services Sj Singh November and Other [facility] Start: 08-12-2022 End: 08-12-2022 ambulatory Ada Moody Other [employer] Other Start: 08-12-2022 Office outpatient vi sit 25 minutes Ada Moody [facility] [place] Start: 08-12-2022 Telephone encounter Ada Moody [facility] Start: 08-03-2022 End: 08-03-2022 ambulatory DO Idania Petznick Work Phone: [facility] Work Phone: Start: 08-03-2022 End: 08-03-2022 Patient encounter procedure DO Idania Petznick Work Phone: [facility] [place] Start: 07-28-2022 End: 07-29-2022 Emergency department patient visit DO Idania Petznick Work Phone: [facility]-Emergency Room Start: 07-24-2022 Office Services Sj Stallworth Other [facility] Start: 07-17-2022 End: 07-18-2022 ambulatory Sj Francois DPMaeve Facility:[facility] Start: 07-17-2022 Office outpatient ne w 30 minutes Sj Francois Other [facility] Start: 06-27-2022 End: 06-27-2022 ambulatory DO Idania Petznick Work Phone: [facility] Work Phone: Start: 06-27-2022 End: 06-27-2022 Patient encounter procedure DO Idania Petznick Work Phone: [facility] [place] Start: 06-18-2022 Encounter for prepro cedural laboratory examination [facility] Start: 06-16-2022 End: 06-16-2022 ambulatory Ada Moody Other [employer] Other Start: 06-16-2022 Telephone encounter Ada Moody [facility] Start: 06-15-2022 End: 06-16-[address] IDANIA RICKETTS Facility:[facility] Start: 06-15-2022 End: 06-16-2022 Encounter for preprocedural laboratory examination DR IDANIA RICKETTS Facility:[facility] Start: 05-20-2022 End: 05-20-2022 ambulatory Ada Moody Other [employer] Other Start: 05-20-2022 Office outpatient vi sit 25 minutes Ada Moody [facility] [place] Start: 05-16-2022 End: 05-16-2022 Patient encounter procedure DO Idania Ricketts Work Phone: [facility]-Lab [facility] Start: 05-01-2022 End: 05-02-2022 ambulatory BERTIN YVONNE Facility:[facility] Start: 03-12-2022 End: 03-12-2022 ambulatory Ada Moody Other [employer] Other Start: 03-12-2022 Office outpatient vi sit 25 minutes Ada Moody [facility] Nik[facility]il Start: 03-06-2022 End: 03-07-2022 ambulatory KEVIN WILKES Facility:[facility] Start: 02-26-2022 End: 02-27-2022 ambulatory KEVIN WILKES Facility:[facility] Start: 02-25-2022 End: 02-25-2022 ambulatory Ada Moody Other [employer] Other Start: 02-25-2022 Telephone encounter Ada Moody [facility] Start: 02-20-2022 End: 02-20-2022 Patient encounter procedure DO Idania Herokorina Work Phone: [facility] Start: 02-19-2022 End: 02-20-2022 ambulatory KEVIN WILKES Facility:[facility] Start: 02-09-2022 End: 02-10-2022 ambulatory KEVIN WILKES Facility:[facility] Start: 01-27-2022 End: 01-28-[address] IDANIA RICKETTS Facility:[facility] Start: 01-21-2022 End: 01-21-2022 ambulatory KEVIN D HIGHLHARPER Facility:[facility] Start: 12-31-2021 End: 01-01-2022 ambulatory KEVIN WILKES Facility:[facility] Start: 12-03-2021 End: 12-03-2021 ambulatory Ada Moody Other [employer] Other Start: 12-03-2021 Office outpatient vi sit 25 minutes Thierry O[facility] [place] Procedures Date Procedure Procedure Detail Performing Clinician [...] of peritonea l dialysis catheter DO Idania Petlizbethick Work Phone: Start: 10-25-2023 Debridement muscle & fascia 20 sq cm/< Sj P Alessandro Other Start: 10-18-2023 Basic metabolic pane l calcium total Flakito C Laffay DO Work Phone: Start: 09-27-2023 US angiography DO Allis on Petlizbethick Work Phone: Start: 09-25-2023 Plain chest X-ray DO Al amy Ricketts Work Phone: Start: 09-25-2023 SARS-CoV-2, Influenz a & RSV (PCR) DO Idania Petkorina Work Phone: Start: 09-16-2023 Plain chest X-ray DO Al amy Ricketts Work Phone: Start: 09-16-2023 Fluoroscopic guidance D O Idania Foodynkorina Work Phone: Start: 09-02-2023 Debridement muscle & [...] inserti on of peritoneal dialysis catheter DO [employer] Work Phone: Start: 11-05-2022 SARS-CoV-2, Influenz a & RSV (PCR) DO [employer] Work Phone: Start: 11-04-2022 Plain chest X-ray DO Al [employer] Work Phone: Start: 11-01-2022 Plain chest X-ray DO Al [employer] Work Phone: Start: 11-01-2022 Screening for occult blood in feces DO [employer] Work Phone: Start: 10-09-2022 Duplex scan of [...] meds by scout quintanilla Sj Alessandro Start: 07-17-2022 Procedure on wound Geronimo eva Alessandro Start: 07-17-2022 Wound microscopy, cu lture and sensitivities Sj Alessandro Start: 04-07-2022 PSA screening [facility] Comment on above: Order Comment: only males 40 and older Performed By: #### [id number] #### [facility] [address] Plan of Treatment Date Care Activity Detail Author Start: 06-20-2034 Screening for malign ant neoplasm of colon [facility] Start: 09-03-2032 Screening for malign ant neoplasm of colon [facility] Start: 05-01-2031 DTaP,Tdap and Td Vac cines (3 - Td or Tdap) DTaP,Tdap and Td Vaccines (3 - Td or Tdap) [facility] Start: 04-10-2026 Adult BMI Screening Adult BMI Screen ing [facility] Start: 04-10-2026 Tobacco Screening Tobacco Screening [facility] Start: 04-05-2026 Adult BMI Screening Adult BMI Screen [facility] Start: 04-05-2026 Tobacco Screening Tobacco Screening [facility] Start: 12-28-2025 Statin Use: Diabetic Statin Use: Tawana betic [facility] Start: 06-22-2025 Urine screening for protein Diabetes: Urine Protein Screening [facility] Start: 05-23-2025 Urine screening for protein Diabetes: Urine Protein Screening [facility] Start: 05-17-2025 End: 05-17-2025 Patient encounter procedure 05/17/2025 10:30 AM EDT Office Visit [facility] [address] [place] [address] [place] [address] Chintan Quinn, [address] [place] [address], [address], [place] [address] [facility] Start: 05-10-2025 End: 05-10-2025 Patient encounter procedure 05/10/2025 1:00 PM EDT Office Visit [facility] [address] [place] [address] Kaylee Mesa, KAREN [address] [place] [address] [facility] Start: 05-07-2025 Influenza vaccination [facility] Start: 04-27-2025 End: 04-27-2025 Admission to same day surgery center 04/27/2025 1:55 PM EDT - 04/27/2025 2:02 PM EDT Surgery [facility] [address] [place] [id number] Alec Jacobson MD [address] [place] [address] INJECTION BLOCK EPIDURAL CAUDAL STEROID [64627 (CPT )] [facility] Comment on above: INJECTION BLOCK EPID URAL CAUDAL STEROID [65665 (CPT )] Start: 04-27-2025 Subsequent hospital visit by physician 04/27/2025 1:55 PM EDT Hospital Encounter [facility] [address] [place] [address] Alec Jacobson MD [address] [place] [address] [facility] Start: 04-27-2025 End: 04-27-2025 Njx dx/ther sbst intrlmnr lmbr/sac w/[facility] Start: 04-06-2025 Influenza vaccination Flu vaccine (# 1) [facility] Start: 03-05-2025 Influenza vaccination Influenza Vacc ine (#1) [facility] Comment on above: Postponed from 05/07 (Supply/Drug Shortage) Start: 01-06-2025 Glaucoma screening Diabetes: R etinopathy Screening [facility] Start: 12-05-2024 End: 12-05-2024 Patient encounter procedure 12/05/2024 2:00 PM EDT Office Visit [facility] [address] [place] [phone] Idania Ricketts, DO [address] [place] [address] Arrived [facility] Comment on above: Arrived Start: 11-27-2024 Duplex scan of lower limb veins US venous duplex LE RT [facility] Start: 11-27-2024 US Lower extremity v ein - right [facility] Start: 11-08-2024 [facility] Start: 11-07-2024 [facility] Start: 11-06-2024 End: 11-06-2024 Patient encounter procedure 11/06/2024 11:30 AM EST Office Visit [facility] [address] [place] [id number] Idania Ricketts, DO [address] [place] [address] [facility] Start: 11-06-2024 [facility] Start: 11-05-2024 [facility] Start: 11-04-2024 [facility] Start: 11-03-2024 [facility] Start: 11-02-2024 [facility] Start: 11-01-2024 [facility] Start: 10-31-2024 [facility] Start: 10-30-2024 [facility] Start: 10-29-2024 [facility] Start: 10-29-2024 MRI of right foot wi th contrast MR foot RT wo/w con [facility] Start: 10-29-2024 Hospital admission [facility] Start: 10-29-2024 Patient referral to dietitian [facility] Start: 10-29-2024 Referral to infectio us diseases physician [facility] Start: 10-29-2024 Referral to check examiner [facility] Start: 10-29-2024 Referral to manager roofing [facility] Start: 10-29-2024 [facility] Start: 10-29-2024 [facility] Start: 10-29-2024 Bacteria identified in Blood by Culture Blood Culture [facility] Start: 10-12-2024 End: 10-12-2024 Patient encounter procedure 10/12/2024 9:45 AM EST Office Visit [facility] [address] [place] [address] Gi Mondragon, DPM [address] [place] [address] [facility] Start: 10-11-2024 Hemoglobin A1c measurement Diabetes: Hemoglobin A1C [facility] Start: 10-03-2024 End: 10-03-2024 Patient encounter procedure 10/03/2024 9:30 AM EST Office Visit [facility] [address] [place] [address] Gi Mondragon, DPM [address] [place] [address] [facility] Start: 09-30-2024 Medicare Annual Well ness (AWV) Medicare Annual Wellness (AWV) [facility] Start: 09-12-2024 End: 09-12-2024 Patient encounter procedure 09/12/2024 9:30 AM EST Office Visit [facility] [address] [place] [address] Gi Mondragon, DPM [address] [place] [address] [facility] Start: 09-06-2024 Annual Wellness Visi t (Medicare Advantage) Annual Wellness Visit (Medicare Advantage) [facility] Start: 08-29-2024 End: 08-29-2024 Patient encounter procedure 08/29/2024 9:30 AM EST Office Visit [facility] [address] [place] [address] Gi Mondragon, DPM [address] [place] [address] [facility] Start: 08-08-2024 End: 08-08-2024 Patient encounter procedure 08/08/2024 9:30 AM EST Office Visit [facility] [address] [place] [address] Gi Mondragon, DPM [address] [place] [address] [facility] Start: 07-18-2024 End: 07-18-2024 Patient encounter procedure 07/18/2024 11:00 AM EST Office Visit [facility] [address] [place] [address] Gi Mondragon, DPM [address] [place] [address] [facility] Start: 06-30-2024 End: 06-30-2024 Patient encounter procedure [facility] Comment on above: Type 2 diabetes conrad itus with foot ulcer, with long-term current use of insulin ([facility] Start: 06-29-2024 End: 06-29-2024 Patient encounter procedure [facility] Comment on above: Arrived Start: 06-08-2024 End: 06-08-2024 Patient encounter procedure [facility] Comment on above: Arrived Start: 05-27-2024 Hemoglobin A1c measurement Diabetes: Hemoglobin A1C [facility] Start: 05-18-2024 End: 05-18-2024 Patient encounter procedure [facility] Comment on above: Arrived Start: 05-07-2024 COVID-19 Vaccine ( season) COVID-19 Vaccine ( season) [facility] Start: 05-07-2024 COVID-19 Vaccine ( season) COVID-19 Vaccine ( season) [facility] Start: 05-07-2024 Influenza vaccination Influenza Vacc ine (#1) [facility] Start: 05-04-2024 End: 05-04-2024 Patient encounter procedure [facility] Comment on above: Arrived Start: 04-27-2024 Urine screening for protein Diabetes: Urine Protein Screening [facility] Start: 02-04-2024 [facility] Start: 12-30-2023 End: 12-30-2023 Patient encounter procedure 12/30/2023 1:15 PM EDT Office Visit [facility] [address] [place] [address] Idania Ricketts DO [address] [place] [address] [facility] Start: 12-24-2023 [facility] Start: 12-18-2023 Glaucoma screening Diabetes: R etinopathy Screening [facility] Start: 12-06-2023 Ultrasonography of arteriovenous fistula US AV Fistula [facility] Start: 12-06-2023 US AV fistula [facility] Start: 11-25-2023 [facility] Start: 11-24-2023 [facility] Start: 11-23-2023 End: 11-23-2023 [facility] Start: 11-22-2023 [facility] Start: 11-21-2023 Referral to infectio us diseases physician [facility] Start: 11-21-2023 Referral to manager roofing [facility] Start: 11-21-2023 [facility] Start: 11-20-2023 Hospital admission [facility] Start: 11-20-2023 Referral to check examiner [facility] Start: 11-20-2023 [facility] Start: 11-20-2023 Plain chest X-ray XR chest 2V* [facility] Start: 11-20-2023 XR Chest 2 Views [facility] Start: 11-20-2023 [facility] Start: 11-20-2023 Bacteria identified in Blood by Culture Blood Culture [facility] Start: 11-20-2023 Blood culture for bacteria, including anaerobic screen Blood Culture [facility] Start: 11-20-2023 Extraction of Right Foot Skin, External Approach Extraction of Right Foot Skin, External Approach [facility] Start: 11-20-2023 Performance of Urina ry Filtration, Intermittent, Less than 6 Hours Per Day Performance of Urinary Filtration, Intermittent, Less than 6 Hours Per Day [facility] Start: 11-10-2023 End: 11-10-2023 Patient encounter procedure 11/10/2023 9:30 AM EST [facility] [address] [place] [id number] Flakito High, DO [address] [place] [address] [facility] Start: 11-01-2023 End: 11-01-2023 Patient encounter procedure 11/01/2023 12:15 PM EST Procedure Visit [facility] Flakito High, DO [address] [place] [address] [facility] Start: 10-27-2023 [facility] Start: 10-13-2023 End: 10-13-2023 Patient encounter procedure 10/13/2023 11:15 AM EST Office Visit [facility] [address] [place] [id number] Flakito High, DO [address] [place] [address] [facility] Start: 10-06-2023 [facility] Start: 10-06-2023 [facility] Start: 09-27-2023 US angiography US map hemodia l access SLIM [facility] Start: 09-27-2023 US Unspecified body region [facility] Start: 09-25-2023 Plain chest X-ray XR chest 1V portab le [facility] Start: 09-25-2023 XR Chest Single view [facility] Start: 09-16-2023 [facility] Start: 09-16-2023 [facility] Start: 07-28-2023 Hemoglobin A1c measurement Diabetes: Hemoglobin A1C [facility] Start: 05-07-2023 Influenza vaccination Influenza Vacc ine (#1) [facility] Start: 03-11-2023 Debridement open wou nd 20 sq cm/< Active debridement of wound 20 square centimeters or less [employer] Start: 11-20-2022 Hepatitis B core ant ibody measurement [facility] Start: 11-20-2022 [facility] Start: 11-08-2022 Blood chemistry [facility] Start: 11-08-2022 [facility] Start: 11-07-2022 Blood chemistry [facility] Start: 11-07-2022 End: 11-07-2022 [facility] Start: 11-06-2022 Blood chemistry [facility] Start: 11-06-2022 [facility] Start: 11-05-2022 Blood chemistry [facility] Start: 11-05-2022 [facility] Start: 11-04-2022 Hospital admission [facility] Start: 11-04-2022 Referral to check examiner [facility] Start: 11-04-2022 [facility] Start: 11-04-2022 Insertion of Infusio n Device into Peritoneal Cavity, Percutaneous Endoscopic Approach Insertion of Infusion Device into Peritoneal Cavity, Percutaneous Endoscopic Approach [facility] Start: 11-01-2022 [facility] Start: 11-01-2022 Plain chest X-ray XR chest 2V* [facility] Start: 11-01-2022 XR Chest 2 Views [facility] Start: 10-09-2022 Dup-scan xtr veins unilateral/limited study [employer] Start: 07-17-2022 Cul bact xcpt urine blood/stool aerobic isol Wound culture and sensitivity [facility] Start: 05-19-2022 Urine screening for protein Diabetes: Urine Protein Screening [facility] Start: 01-11-2016 Screening for malign ant neoplasm of colon [facility] Start: 2006 Diabetes screen Diabetes screen [facility] Start: 1991 Hepatitis B vaccine (1 of 3 - Risk Dialysis 4-dose series) Hepatitis B vaccine (1 of 3 - Risk Dialysis 4-dose series) [facility] Start: 1990 DTaP/Tdap/Td vaccine (1 - Tdap) DTaP/Tdap/Td vaccine (1 - Tdap) [facility] Start: 1990 Pneumococcal 50+ yea rs Vaccine (1 of 2 - PCV) Pneumococcal 50+ years Vaccine (1 of 2 - PCV) [facility] Start: 1989 Adult BMI Follow Up Plan Adult BMI Follow Up Plan [facility] Start: 1989 Diabetic foot examination Diabetic F oot Exam [facility] Start: 1989 Hepatitis C screening Hepatitis C sc reen [facility] Start: 1986 HIV screening HIV screen [facility] Start: 1983 Depression Screen Depression Screen [facility] Start: 1983 Depression Screening Depression Scre ening [facility] Start: 1981 Lipid panel Lipids [facility] Start: 1971 Glaucoma screening Diabetic Op hthalmology Exam [facility] Start: 1971 Screening for malign ant neoplasm of colon [facility] Start: 1971 Tobacco Counseling Tobacco Counselin g [facility] Anion gap measurement [facility] aPTT in Platelet poo r plasma by Coagulation assay [facility] Basophils [#/volume] in Blood by Automated count [facility] Basophils/100 leukoc ytes in Blood by Automated count [facility] CBC W Auto Different ial panel - Blood CBC and differential Lab Routine Bilious vomiting with nausea Ordered: 10/02/2024 [facility] Comment on above: Ordered: 10/02/2024 Comprehensive metabo lic 1999 panel - Serum or Plasma Comprehensive metabolic panel Lab Routine Bilious vomiting with nausea Ordered: 10/02/2024 [facility] Work Phone: Comment on above: Ordered: 10/02/2024 Eosinophils/100 leukocytes in Blood by Automated count [facility] Erythrocyte distribu tion width [Ratio] by Automated count [facility] Erythrocytes [#/volu me] in Blood [facility] Glucose measurement estimated from glycated hemoglobin [facility] Hematocrit [Volume Fraction] of Blood [facility] Hemoglobin [Mass/vol ume] in Blood [facility] Hemoglobin A1c/Hemoglobin.total in Blood [facility] INR in Platelet poor plasma by Coagulation assay [facility] Insulin C-peptide measurement [facility] Leukocytes [#/volume ] corrected for nucleated erythrocytes in Blood by Automated coun [facility] Leukocytes [#/volume ] in Blood [facility] Lymphocytes [#/volum e] in Blood by Automated count [facility] Lymphocytes/100 leukocytes in Blood by Automated count [facility] MCH [Entitic mass] b y Automated count [facility] MCHC [Mass/volume] b y Automated count [facility] MCV [Entitic volume] by Automated count [facility] Monocytes [#/volume] in Blood by Automated count [facility] Monocytes/100 leukoc ytes in Blood by Automated count [facility] Neutrophils [#/volum e] in Blood by Automated count [facility] Neutrophils/100 leukocytes in Blood by Automated count [facility] Nucleated erythrocyt es [Presence] in Blood by Automated count [facility] Patient Education [facility] Work Phone: Patient referral [facility] Work Phone: Platelet mean volume [Entitic volume] in Blood by Automated count [facility] Platelets [#/volume] in Blood [facility] Prothrombin time (PT) [facility] Renal function 1999 panel - Serum or Plasma [facility] End: 02-02-2025 SPECIMEN REJECTION [facility] Comment on above: Once for 1 Occurrenc es starting 02/02/2025 until 02/02/2025 Thyrotropin [Units/volume] in Serum or Plasma TSH Lab Routine Bilious vomiting with nausea Ordered: 10/02/2024 [facility] Comment on above: Ordered: 10/02/2024 US AV fistula [facility] Immunizations Immunization Date Immunization Notes Care Provider Magdy turpin 06-20-2024 influenza virus vaccine, unspecified formulation Kaylee JONES Work Phone: [employer] 11-13-2022 zoster vaccine recombinant Flakito Laffay DO Work Phone: [facility] 11-05-2022 influenza, injectabl e, quadrivalent, preservative free DO Idania Petznick Work Phone: [facility] 11-05-2022 influenza virus vaccine, unspecified formulation Flakito Laffay DO Work Phone: [facility] 08-12-2021 COVID-19 Ad26.COV2.S (Billie) DO Idania Petznick Work Phone: [facility] 01-23-2021 COVID-19 Ad26.COV2.S (Billie) DO Idania Petznick Work Phone: [facility] 06-18-2019 influenza, high dose seasonal, preservative-free Flakito Laffay DO Work Phone: [facility] 06-18-2019 influenza, injectabl e, quadrivalent, preservative free DO Idania Petznick Work Phone: [facility] 06-29-2014 seasonal influenza, intradermal, preservative free Flakito Laffay DO Work Phone: [facility] 06-26-2013 seasonal influenza, intradermal, preservative free Flakito Laffay DO Work Phone: [facility] Payers Date Payer Category Payer Medicare O [employer] MEDICARE [id number] 2024 Medicare [id number] 2023 Medicare (Managed Care) [id number] 2023 Private Health Insurance [id number] 2023 Medicare [id number]. 1.13.693. 2.7.3.793499.315 2023 Unknown [id number] 2.16.840.1.907844.3.441 2023 Medicaid 1.2.840.800029. 1.13.693. 2.7.3.522150.315 2023 Medicaid [id number] 2.16.840.1.490100.3.441 2022 Unknown 1971 Unknown [id number] 2.16.840.1.834173.3.579. 2.647 1971 Unknown [id number] 2.16.840.1.216047.3.579. 2.196 1971 Unknown [id number] 2.16.840.1.314085.3.579. 2.196 1971 Unknown [id number] 2.16.840.1.842094.3.579. 2.593 1971 Unknown [id number] 2.16.840.1.658213.3.579. 2.593 1971 Unknown [id number] 2.16.840.1.880457.3.579. 2.593 1971 Unknown [id number] 2.16.840.1.914367.3.579. 2. 1971 Unknown [id number] 2.16.840.1.741100.3.579. 2. 1971 Unknown [id number] 2.16.840.1.340113.3.579. 2. 1971 Unknown [id number] 2.16.840.1.049921.3.579. 2. 1971 Unknown [id number] 2.840.1.714291.3.579. 2.1258 1971 Unknown [id number] 2.840.1.987159.3.579. 2.1258 1971 Unknown [id number] 2.840.1.497103.3.579. 2.1258 1971 Unknown [id number] 2.16.840.1.753512.3.579. 2.1258 1971 Unknown [id number] 2.840.1.217247.3.579. 2.1258 1971 Unknown [id number] 2.840.1.744046.3.579. 2.1258 1971 Unknown [id number] 2.840.1.688299.3.579. 2.1258 1971 Unknown [id number] 2.16.840.1.712022.3.579. 2.1258 1971 Unknown [id number] 2.16.840.1.465900.3.579. 2.1258 1971 Unknown [id number] 2.16.840.1.626583.3.579. 2.1258 1971 Unknown [id number] 2.16.840.1.083556.3.579. 2.1258 1971 Unknown [id number] 2.16.840.1.245354.3.579. 2.1258 1971 Unknown [id number] 2.16.840.1.858375.3.579. 2.1258 1971 Unknown [id number] 2.16.840.1.644536.3.579. 2.1258 1971 Unknown [id number] 2.16.840.1.297513.3.579. 2.1258 1971 Unknown [id number] 2.16.840.1.201268.3.579. 2.1258 1971 Unknown [id number] 2.16.840.1.975846.3.579. 2.1258 1971 Unknown [id number] 2.16.840.1.276447.3.579. 2.1258 1971 Unknown [id number] 2.840.1.844870.3.579. 2.1258 1971 Unknown [id number] 2.16.840.1.817331.3.579. 2.1258 1971 Unknown [id number] 2.16.840.1.095191.3.579. 2.1258 1971 Unknown [id number] 2.16.840.1.045914.3.579. 2.1258 1971 Unknown [id number] 2.16840.1.159316.3.579. 2.1258 1971 Unknown [id number] 2.16.840.1.638657.3.579. 2.1258 1971 Unknown [id number] 2.16.840.1.579517.3.579. 2.1258 1971 Unknown [id number] 2.16.840.1.000838.3.579. 2.1258 1971 Unknown [id number] 2.16.840.1.250442.3.579. 2. 1971 Unknown [id number] 2.16.840.1.008824.3.579. 2.173 1971 Unknown [id number] 2.16.840.1.332727.3.579. 2. 1971 Unknown [id number] 2.16.840.1.082693.3.579. 2.1285 1971 Unknown [id number] 2.16.840.1.485357.3.579. 2.1285 1971 Unknown [id number] 2.16.840.1.442408.3.579. 2.1285 1971 Unknown [id number] 2.840.1.017931.3.579. 2.1285 1971 Unknown [id number] 2.840.1.481183.3.579. 2.1285 1971 Unknown [id number] 2.840.1.744146.3.579. 2.1285 1971 Unknown [id number] 2.840.1.681398.3.579. 2.1285 1971 Unknown [id number] 2.0.1.487705.3.579. 2.1285 1971 Unknown [id number] 2.16840.1.306172.3.579. 2.1285 1971 Unknown [id number] 2.840.1.356307.3.579. 2.1285 1971 Unknown [id number] 2.840.1.073218.3.579. 2.1285 1971 Unknown [id number] 2.840.1.501163.3.579. 2.1285 1971 Unknown [id number] 2.840.1.927014.3.579. 2.1285 1971 Unknown [id number] 2.16840.1.356633.3.579. 2.8 1971 Unknown [id number] 2.16.840.1.995382.3.579. 2.718 1959 Self-pay [id number] 1959 Unknown [id number] 2.16.840.1.421036.19 Medicare [id number] Medicare [id number] 2.16.840.1.145499.19 Unknown [id number] Unknown [id number] 2.16.840.1.925318.3.579. 2.593 Unknown [id number] 2.16.840.1.938558.3.579. 2.531 Unknown [id number] 2.16.840.1.356510.3.579. 2.531 Unknown [id number] 2.16.840.1.779250.3.579. 2.531 Unknown [id number] 2.16.840.1.007726.3.579. 2.531 Unknown [id number] 2.16.840.1.847797.3.579. 2.531 Unknown [id number] 2.16.840.1.118143.3.579. 2.531 Unknown [id number] 2.16.840.1.176187.3.579. 2.531 Unknown [id number] 2.16.840.1.777832.3.579. 2.531 Unknown [id number] 2.16.840.1.196945.3.579. 2.531 Social History Date Type Detail Facility Unknown if ever smoked [employer] Other Start: 10-17-2020 End: 09-30-2023 Sex Assigned At [employer] Other Start: 09-11-2021 End: 08-09-2023 Tobacco smoking status FLIS Never smoked tobacco (finding) [facility] Start: 1970 Sex Assigned At Male [facility] Start: 09-23-2022 Tobacco smoking status NHIS Smoker (finding) [facility] Start: 03-02-2023 End: 02-02-2025 Tobacco use and exposure Smokeless tobacco non-user [facility] Start: 10-13-2023 End: 04-26-2025 Alcohol intake Lifetime non-drinker (finding) [facility] [...] Start: 04-11-2015 End: 10-30-2024 Sex Male (finding) [facility] Do you belong to any clubs or organizations such as baptism groups, unions, fraternal [...] months, were you homeless or living in chcf [including now]? No [facility] Tobacco smoking status [facility] Start: 08-09-2023 Tobacco use and exposure User of smokeless tobacco [facility] History of tobacco use Chews Tobacco [facility] Start: 04-05-2025 Alcoholic beverage intake Current non-drinker of alcohol (finding[facility] Medical Equipment Procedure Code Equipment Code Equipment Origin al Text Equipment Identifier Dates Wound debridement Collagen wound matrix dressing ()[id number] FDA Start: 12-24-2023 Wound debridement Collagen wound matrix dressing ()[id number] FDA Start: 02-04-2024 Wound debridement Collagen wound matrix dressing ()[id number] FDA Start: 02-04-2024 Insertion, catheter, dialysis, peritoneal, laparoscopic Peritoneal dialysis catheter, chronic ()[id number] FDA Start: 11-06-2022 Fluoroscopic guidance for insertion of tunnelled dialysis catheter Double-lumen haemodialysis catheter, implantable +[id number]$$ [id number] FDA Start: 09-16-2023 Goals Date Patient Goal Desired Activity /State Functional Status Date Assessment Result Facility 11-23-2023 Functional status Patient at Baseline [facility] Work Phone: 11-07-2022 Functional status Patient at Baseline [facility] Work Phone: [facility] Mental Status Date Assessment Result Facility 11-23-2023 Cognitive function Cognitive Sta tus Patient at Baseline [facility] Work Phone: 11-07-2022 Cognitive function Cognitive Sta tus Patient at Baseline [facility] Work Phone: Clinical Notes 08-21-2021 to 05-11-2025 Discharge InstructionsAttachmentsTelephone Encounter - Marielos Abreu RN - 04/06/2025 9:54 AM EDTTelephone Encounter - Justine Vargas RN - 04/06/2025 9:54 AM EDTPatient Instructions Note Date & Type Note Facility 05-11-2025 Note Education Materials Orthopedics Foot Pain Many things can cause foot pain. Common causes include injuries to the foot. The injuries include sprains or broken bones, or injuries that affect the nerves in the feet. Other causes of foot pain include arthritis, blisters, and bunions. To know what causes your foot pain, your health care provider will take a detailed history of your symptoms. They will also do a physical exam as well as imaging tests, such as X-ray or MRI. Follow these instructions at home: Managing pain, stiffness, and swelling ? If told, put ice on the painful area. ? Put ice in a plastic bag. ? Place a towel between your skin and the bag. ? Leave the ice on for 20 minutes, 2?3 times a day. ? If your skin turns bright red, remove the ice right away to prevent skin damage. The risk of damage is higher if you cannot feel pain, heat, or cold. Activity ? Do not stand or walk for long periods. ? Do stretches to relieve foot pain and stiffness as told by your provider. ? Do not lift anything that is heavier than 10 lb (4.5 kg), or the limit that you are told, until your provider says that it is safe. Lifting a lot of weight can put added pressure on your feet. ? Return to your normal activities as told by your provider. Ask your provider what activities are safe for you. Lifestyle ? Wear comfortable, supportive shoes that fit you well. Do not wear high heels. ? Keep your feet clean and dry. General instructions ? Take [id number] and prescription medicines only as told by your provider. ? Rub your foot gently. ? Pay attention to any changes in your symptoms. Let your provider know if symptoms become worse. ? Keep all follow-up visits. Your provider will want to monitor your progress. Contact a health care provider if: ? Your pain does not get better after a few days of treatment at home. ? Your pain gets worse. ? You cannot stand on your foot. ? Your foot or toes are swollen. ? Your foot is numb or tingling. Get help right away if: ? Your foot or toes turn white or blue. ? You have warmth and redness along your foot. This information is not intended to replace advice given to you by your health care provider. Make sure you discuss any questions you have with your health care provider. Document Revised: 09/16/2023 Document Reviewed: 05/25/2023 [employer] Patient Education ? 2024 [employer]. [facility] 04-26-2025 Hospital Discharg e instructions Magali Alas APRN - WILIAN - 04/26/2025 2:14 PM EDT Keep your appointment as scheduled for tomorrow afternoon with pain management, you were prescribed [facility] here for the interim, be advised that the emergency department will not refill pain medication for chronic problem again, return for worsening symptoms The following attachments cannot be sent through Care Everywhere.Chronic Pain (Hungarian)documented in this encounter [facility] 04-06-2025 Miscellaneous Notes Patient calls and asks if he is [...] his pain becomes unbearable when he is unable to do that during dialysis, hence missing some of these dialysis treatments. He is currently taking Lyrica 150 mg BID. Suggested to patient to try OTC pain patches. He notes he has tried these and tens units. He is not currently taking OTC Ibuprofen due to CKD and gets little to no relief with OTC Tylenol. Spoke with Charla rojo, requests prescription send to [facility] in [place]. done Not done done [facility] called and stated that the prior auth for pt's Qutenza has been denied. Noted let patient know This is the denial explanation: QUTENZA KIT [...] is not appropriate for you. Reviewed by: [facility]. If the treating physician would like to discuss this coverage decision with the physician or health respiratory care assistant reviewer, please call [employer] Prior Authorization department at 1- [phone]. How would you like to proceed? 1105 patient stopped in department at 0800 today and called at 1105. He was unable to go to dialysis today due to the chronic pain in his bilateral feet that is worse when sitting or lying. He notes that he gets relief with weight bearing. In addition to starting pain management, he has been to the ER and his PCP. He is looking for some type of relief; asked patient what he is looking for, and he states he does not know, just looking for relief. Patient is aware that the Qutenza was denied. He is scheduled for a caudal AMBER this Wednesday, 04/27. Called Dr Nancy Altman ([facility] [phone]) requesting clearance for pt to start nortriptyline 25 mg at HS. Spoke with Cory, he will send message and call back with response. noted 9:25 AM TC from WILIAN Koenig at Dr. Altman's nephrology office. Per Dr. Altman, ok for patient to start Nortriptyline 25 mg at HS from nephrology standpoint. If Dr. Jacobson has additional questions, he can contact Dr. Altman. RX prepared and ready for review and signing. Patient notified. Sent to [facility] pharmacy in [place]. 1047 spoke with Guilherme @ [facility] pharmacy; she put the Nortriptyline back on the patient's profile, we can call the [place] location and have them pull it. 1050 spoke with Bari, they are able to pull the RX and fill it. documented in this encounter [facility] 04-06-2025 Telephone encounter Note Patient calls and asks if he is [...] his pain becomes unbearable when he is unable to do that during dialysis, hence missing some of these dialysis treatments. He is currently taking Lyrica 150 mg BID. Suggested to patient to try OTC pain patches. He notes he has tried these and tens units. He is not currently taking OTC Ibuprofen due to CKD and gets little to no relief with OTC Tylenol. [facility] 04-06-2025 Telephone encounter Note Spoke with Charla rojo, requests prescription send to [facility] pharmacy in [place]. [facility] 04-06-2025 Telephone encounter Note done [facility] 04-06-2025 Telephone encounter Note Not done [facility] 04-06-2025 Telephone encounter Note done [facility] 04-06-2025 Telephone encounter Note [facility] pharmacy called and stated that the prior auth for pt's Qutenza has been denied. [facility] 04-06-2025 Telephone encounter Note Noted let patient know [facility] 04-06-2025 Telephone encounter Note This is the denial explanation: QUTENZA KIT [...] is not appropriate for you. Reviewed by: [facility]. If the treating physician would like to discuss this coverage decision with the physician or health respiratory care assistant reviewer, please call [employer] [facility] Prior Authorization department at 1- [phone]. How would you like to proceed? [facility] 04-06-2025 Telephone encounter Note 1105 patient stopped in department at 0800 today and called at 1105. He was unable to go to dialysis today due to the chronic pain in his bilateral feet that is worse when sitting or lying. He notes that he gets relief with weight bearing. In addition to starting pain management, he has been to the ER and his PCP. He is looking for some type of relief; asked patient what he is looking for, and he states he does not know, just looking for relief. Patient is aware that the Qutenza was denied. He is scheduled for a caudal AMBER this Wednesday, 04/27. [facility] 04-06-2025 Telephone encounter Note Called Dr Nancy Altman ([facility] [phone]) requesting clearance for pt to start nortriptyline 25 mg at HS. Spoke with Cory, he will send message and call back with response. [facility] 04-06-2025 Telephone encounter Note noted [facility] 04-06-2025 Telephone encounter Note 9:25 AM TC from WILIAN Koenig at Dr. Altman's nephrology office. Per Dr. Altman, ok for patient to start Nortriptyline 25 mg at HS from nephrology standpoint. If Dr. Jacobson has additional questions, he can contact Dr. Altman. RX prepared and ready for review and signing. [facility] 04-06-2025 Telephone encounter Note Patient notified. [facility] 04-06-2025 Telephone encounter Note Sent to [facility] pharmacy in [place]. 1047 spoke with Guilherme @ [facility] pharmacy; she put the Nortriptyline back on the patient's profile, we can call the [place] location and have them pull it. 1050 spoke with Bari, they are able to pull the RX and fill it. [facility] 04-05-2025 History of Presen t illness Narrative [facility] [address] [place] [address] Patient: Evans Shen Jann Gardner Sex: male : 1970 Age: 55 y.o. [...] on 5-9am via left avf Diabetes mellitus ([facility]) Diabetes mellitus type 2, controlled ([facility]) Hyperlipidemia Hypothyroid Obesity Past Surgical History: Procedure Laterality Date CARDIAC CATHETERIZATION 12/2024 last one (2 total) FISTULA CREATION Left FOOT SURGERY Right Allergies Allergen Reactions Vancomycin Hives Hyde Seed Abdominal Pain Runny nose, watery eyes [...] Resource Strain: Medium Risk (12/05/2024) Received from [facility] Overall Financial Resource Strain (CARDIA) Difficulty of Paying Living Expenses: Somewhat hard Food Insecurity: No Food Insecurity (04/05/2025) Hunger Screening Food Insecurity - Worry: Never True Food Insecurity - Inability: Never True Transportation Needs: No Transportation Needs (12/05/2024) Received from [facility] PRAPARE - Transportation Lack of Transportation (Medical): No Lack of Transportation (Non-Medical): No Physical Activity: Insufficiently Active (12/05/2024) Received from [facility] Exercise Vital Sign Days of Exercise per Week: 3 days Minutes of Exercise per Session: 30 min Stress: Stress Concern Present (12/05/2024) Received from [facility] [place] of Occupational Health - Occupational Stress Questionnaire Feeling of Stress : To some extent Social Connections: Socially Integrated (12/05/2024) Received from [facility] Social Connection and Isolation Panel [NHANES] Frequency of Communication with Friends and Family: More than three times a week Frequency of Social Gatherings with Friends and Family: Three times a week Attends Jew Services: 1 to 4 times per year Active Member of Clubs or Organizations: Yes Attends Club or Organization Meetings: 1 to 4 times per year Marital Status: Interpersonal Safety: Not At Risk (12/21/2024) Received from [facility] Humiliation, Afraid, Rape, and Kick questionnaire Fear of Current or Ex-Partner: No Emotionally Abused: No Physically Abused: No Sexually Abused: No Housing Instability: High Risk (12/05/2024) Received from [facility] Housing Stability Vital Sign Unable to [...] BLOCK EPIDURAL CAUDAL STEROID Diabetic peripheral neuropathy ([facility]) PLAN IN OFFICE QTENZA 8% PATCH [...] and benefits. OARRS: Reviewed. Scribe Statement: Minda Armstrong CNA, scribed for and in the presence of KAREN BOX who performed the above service. Minda Paiz CNA 04/05/25 1043 KAREN Box 04/05/25 1155 documented in this encounter [facility] 04-05-2025 Instructions Minda Paiz CNA - 04/05/2025 [...] a safety precaution, you must have a auto driver after a lumbar nerve root injection, [...] back to normal. documented in this encounter [facility] AT [facility] 03-26-2025 Hospital Discharg e instructions Additional Instructions Very important that you [...] up, such as with an orthopedic physician, csr technician, urologist, or other medical specialty, you should [...] should first take Tylenol or ibuprofen available syix-nkw-boewhad. Medications, if prescribed to treat pain from [...] or if you have any other concerns [facility] Work Phone: 02-13-2025 Evaluation note Diagnosis Onset Date Resolution Diabetic peripheral neuropathy acute February 13, 2025 8:20am Lumbar radiculopathy acute February 13, 2025 8:20am Other chronic pain acute February 042024 8:20am Lumbar radiculopathy acute March 07, 2025 3:40pm Other chronic pain acute March 072024 3:40pm [facility] Work Phone: 1(306) 778-440605-30-2025 Hospital Discharge instructions Patient Education 02/02/2025 18:32:46 [...] relieve pain. Medicines may include: ?Prescription or qmjr-ywh-xwwhhmy pain medicine. ?Anti-seizure medicine. ?Antidepressants. ?Pain-relieving patches that are applied to painful areas of skin. Surgery to relieve pressure on a nerve or to destroy a nerve that is causing pain. Physical therapy to help improve movement and balance. Devices to help you move around (assistive devices). Follow these instructions at home: Medicines Take dsjy-gaf-llwxhrq and prescription medicines only as told by [...] important. Where to find more information National [place] of Neurological Disorders: www.ninds.nih.gov Contact a health [...] provider. Document Revised: 04/28/2022 Document Reviewed: 04/28/2022 [employer] Patient Education 2023 Offerial. 02/02/2025 18:32:46 Acute Pain, Adult Acute Pain, [...] Follow these instructions at home: Medicines Take nqij-tbb-mqfzmdx and prescription medicines only as told by [...] pain is severe. ?Do not take other lcub-glo-etcjkom pain medicines in addition to prescription pain [...] to keep your urine pale yellow. Take subz-nbd-jrefymr or prescription medicines. Eat foods that are [...] provider. Document Revised: 03/17/2023 Document Reviewed: 03/17/2023 [employer] Patient Education 2023 Offerial. 02/02/2025 18:32:46 Neuropathic Pain Neuropathic Pain Neuropathic [...] treated? Treatment for neuropathic pain may change management coordinator time. You may need to try different treatment options or a combination of treatments. Some options include: Treating the underlying cause of the neuropathy, such as diabetes, kidney disease, or vitamin deficiencies. Stopping medicines that can cause neuropathy, such as chemotherapy. Medicine to relieve pain. Medicines may include: ?Prescription or ites-dxg-eernkkz pain medicine. ?Anti-seizure medicine. ?Antidepressant medicines. ?Pain-relieving [...] Follow these instructions at home: Medicines Take qxaq-jpi-padvndi and prescription medicines only as told by your health care provider. Ask your health care provider if the medicine prescribed to you: ?Requires you to avoid driving or using machinery. ?Can cause constipation. You may need to take these actions to prevent or treat constipation: ?Drink enough fluid to keep your urine pale yellow. ?Take oglu-ukm-dnqdtfx or prescription medicines. ?Eat foods that are [...] the National Suicide Prevention Lifeline at or 520. This is open 24 hours a day. Text the Crisis Text Line at 758055. Summary Neuropathic pain is pain caused by [...] provider. Document Revised: 04/20/2022 Document Reviewed: 04/20/2022 [employer] Patient Education 2023 Offerial. Follow Up Care 02/02/2025 18:06:53 With:IDANIA RICKETTS Address: [address], [address] [address]- Business (1) When:02/05/2025 18:24:24 Comments:Call for diagnosis [...] pain. Medicines may include: ? Prescription or qjkd-kve-yuimacx pain medicine. ? Anti-seizure medicine. ? Antidepressants. ? Pain-relieving patches that are applied to painful areas of skin. ??? Surgery to relieve pressure on a nerve or to destroy a nerve that is causing pain. ??? Physical therapy to help improve movement and balance. ??? Devices to help you move around (assistive devices). Follow these instructions at home: Medicines ??? Take tnxr-xoi-jvfyxdc and prescription medicines only as told by [...] Living wi (more content not included)... [facility]05-30-2025 Hospital Discharge instructions* Discharge Instructions* Skibicki, Sherley, MD - 02/02/2025 12:02 PM EDT I have consulted pharmacist at this time they recommend only 75 mg Lyrica per day in addition please continue with your lokelma as previously advised for treatment of your elevated potassium Please also keep your dialysis appointment within 24 hours Please keep follow-up appointments with your check examiner and wound care as previously scheduled * Attachments The following attachments cannot be sent through Care Everywhere. * Hyperkalemia (Hungarian) * Kidney Disease: Medicines to Avoid (Hungarian) * Neuropathic Pain (Hungarian) [facility] [place] [address] Subjective Patient ID: Evans Forte is a [...] rescheduled his thoracic imaging and has his [facility] evaluation in January scheduled. He continues to [...] of left foot Type 2 diabetes mellitus ([facility]) Charcot's joint of foot Hypertension, essential Acquired hypothyroidism Hyperlipidemia Vitamin D deficiency Libido, decreased Erectile dysfunction Hypogonadism male Diabetic neuropathic arthropathy ([facility]) Diabetic neuropathy with neurologic complication ([facility]) End stage renal disease ([facility]) Glaucoma Hypoglycemia due to type 2 diabetes mellitus ([facility]) Iron deficiency anemia 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, 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, trunk prison current use of insulin ([facility]) Microalbuminuria Mild left ventricular systolic dysfunction Morbid obesity ([facility]) Obstructive sleep apnea syndrome Osteomyelitis ([facility]) Polyneuropathy due to type 2 diabetes mellitus ([facility]) Ulcer of right foot with fat layer exposed ([facility]) Pure hypercholesterolemia 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, unspecified eye ([facility]) PVD (peripheral vascular disease) Adrenal nodule Anxiety Insomnia Osteomyelitis of left foot ([facility]) Diabetic retinopathy ([facility]) Past history of chewing tobacco use Mild nonproliferative diabetic retinopathy associated with type 2 diabetes mellitus ([facility]) Diabetic foot ulcers ([facility]) Chronic sinusitis COVID-19 Anemia Preop examination Cardiovascular stress test abnormal Current tobacco use Enlarged lymph node Lymphedema Venous stasis dermatitis Neuropathic pain Intervertebral disc disorders with radiculopathy, lumbar region Past Medical History: Diagnosis Date Adrenal nodule left adrenal adenoma Anemia Anxiety Charcot foot due to diabetes mellitus ([facility]) Right, s/p reconstructive surgery Chronic sinusitis COVID-19 08/2023 Diabetic foot ulcers ([facility]) right Diabetic polyneuropathy ([facility]) Diabetic retinopathy ([facility]) ED (erectile dysfunction) ESRD (end stage renal disease) ([facility]) 11/23/2022 GERD (gastroesophageal reflux disease) Glaucoma History of tobacco use Hyperlipidemia Hypertension Hypogonadism in male Hypothyroidism Insomnia Neuropathy Obesity Osteomyelitis of ankle or foot, left, acute ([facility]) Pancreatitis x2 Past history of chewing tobacco use Peripheral artery disease Proteinuria Sleep apnea Type 2 diabetes mellitus ([facility]) Vitamin D deficiency Past Surgical History: Procedure [...] AMPUTATION Left Left lesser (more content not included)...[facility] 12-21-[address]. Jasmin Junior MD / MD Treasure Jimenes, [facility] / Heavenly Bueno CNP / Yokasta Hughes [...] scans to review with MD. Heavenly Bueno, [facility] Medical Oncology/Hematology [phone] SUBJECTIVE: HPI: Evans Forte 54 y.o. man, [...] pericervical, anterior cervical, late (more content not included)...[facility]04-01-2025 History of Present illness Narrative* Idania [...] with chief complaint of ER Follow-up HPI: [facility] ER FOLLOW UP FROM 11/27/2024 Complains of [...] one will be placed in the 12/21/2024 Evergreen works well to help control the pain. [...] bg. Flowsheet Row Documentation from 11/28/2024 in [facility] with Elsy Carter MA Hospital Information ED, Hospital or Assisted Facility Discharge? ED Patient has been contacted within 2 days of being seen in the ED Yes Diagnosis -- [Edema right lower leg] Discharge Date 11/27/24 Discharged To: Home Setting Discharge [facility] Medications Discharge medications reviewed and reconciled from hospital? Yes Prescription Comments -- [Hydrocodone-acet 5-325mg Q4-6H prn] Appointments Does the patient have a primary care provider? Yes Self Management Patient Teaching Wrap Up SUBJECTIVE: See medication list at the end of the note. Allergies Allergen Reactions Latex Rash Other Reaction(s): Unknown If on for long periods of time Vancomycin Hives Haloperidol Anxiety Hyde Oil GI intolerance Runny nose, watery eyes [...] syndrome Peripheral vascular disease (CMS/HCC) Pure hypercholesterolemia ([facility]) Type 2 diabetes mellitus with foot ulcer ([facility]) 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 ([facility]) - Primary During the appointment today all [...] Type 2 diabetes mellitus with peripheral neuropathy ([facility]) Discussed that opioids are not the correct [...] edema, with long-term current use of insulin ([facility]) Long-term insulin use ([facility]) Class 3 severe obesity due to excess calories with serious comorbidity and body mass index (BMI) of40.0 to 44.9 in adult Hx of amputation of lesser toe, left (HCC) ([facility]) Chronic kidney disease with end stage renal disease on dialysis due to type 2 diabetes mellitus ([facility]) Follow up for Next scheduled follow-up. Patient's [...] 5,000 UNITS TABLET Daily. CONTINUOUS BLOOD GLUC SECURITY OPERATIONS ANALYST (DEXCOM G7 SECURITY OPERATIONS ANALYST) DEVICE 1 (one) time each day at [...] with the patient today. documented in this encounterSouthPointe [id number] Telephone encounter Note* Telephone Encounter - Gretchen Plummer - 11/27/2024 3:43 PM EDT Lyrica refill sent to [facility]. [facility] [id number] Miscellaneous Notes* Telephone Encounter - Gretchen Plummer - 11/27/2024 3:43 PM EDT Lyrica refill sent to [facility]. documented in this encounterSouthPointe [id number] Note Attestation signed by Chong Cooley MD [...] trial produced relief. Pain Medicine Medical [address] [address] Referral Source: self-referral, found spinal cord stimulator [...] adequate relief longer than 1 week duration, Evergreen with fair relief, Lyrica with inadequate relief, [...] Medical History: Diagnosis Date (more content not included)...[facility] 11-07-2024 NoteDate of Telehealth Visit: 11/07/2024 Follow up on right foot wound and LAP HPI The visit was conducted awox-hh-xjig with the use of audio and video technology using HIPAA approved Location [employer] System between patient and the provider for [...] in 2 months Faustino Morel MD [facility] NotePatient was seen today in wound clinic. Documentation is provided in [employer] EHR wound care documenting system. See Intellicure [...] RTC 2-3 weeks GDMT for PAD: asa, [facility]02-24-2025 Progress note Author Kit Lundy [facility] Note Date/Time October 30, 2024 6:06am [facility] EN[facility] [address] [place] [id number] Progress Note Signed Patient: Evans Forte MR#: [id number] : 1970 Acct:[id number] Age/Sex: 54 / M Adm Date: 5 Loc: Room: [address] [place] [address] Type: ADM IN Attending Dr: Maxime aMgana DO Copies to: ~ Date of Service: [...] to leave AMA and go to [facility] tomorrow. Documented By: Kit Lundy MD 10/30/24101 Signed By: <Electronically signed by Kit Lundy MD> 10/30/24605 [facility] Work Phone: 1(864) 492-563002-24-[address] [address] Progress Note Signed Patient: Evans Forte MR#: [id number] : 1970 Acct:[id number] Age/Sex: 54 / M Adm Date: 5 Loc: 4N Room: 0X4257-7 Type: ADM IN Attending Dr: Maxime Magana [...] to leave AMA and go to [facility] tomorrow. Documented By: Kit Lundy MD 10/30/24 010 Signed By: 10/30/24 0606 [facility]02-23-2025 History and physical note Author Maxime Magana [facility] Note Date/Time October 29, 2024 9:14pm [facility] [address] [place] [address] Hospitalist H&P Signed Patient: Evans Forte MR#: [id number] : 1970 Acct:[id number] Age/Sex: 54 / M Adm Date: 5 Loc: 4N Room: 8Q7263-2 Type: ADM IN Attending Dr: Maxime Magana DO Copies to: DO Maxime Dhillon DO~ HPI DATE OF EXAMINATION: 10/29/24 CHIEF COMPLAINT: right foot infection, right leg cellulitis. HISTORY OF PRESENT ILLNESS: This is a 54-year-old man who came to the emergency room with right foot infection. This is located in the heel. He went to the [facility] for a wound care center appointment and he says they opened it and they dug around really deep. He explains that he was made to go to the wound care center at the [facility] because the kidney transplant program there wants him to get everything done at the [facility]. So he has had only [...] by podiatry with Dr. Wilkes out of [place]. So there are a number of plates [...] of getting on the transplant list at [facility] and the last thing that [...] mentioned elsewhere in the documentation. [facility] Medical History (Updated 10/29/24 @ 21:11 by [...] (AV) fistula creation History of cardiac catheterization [facility] History of orthopedic surgery right foot has [...] % (Auto) 14.2 % (.) 10/29/24 18:14 [place] % (Auto) 6.8 % (.) 10/29/24 18:14 Eos % (Auto) 3.4 % (.) 10/29/24 18:14 Baso % (Auto) 1.1 % (.) 10/29/24 18:14 Nucleat RBC Rel Count 0.0 /100 WBC (0-0.5) 10/29/24 18:14 Neut # (Auto) 7.5 x10E3/uL (1.8-7.7) 10/29/24 18:14 Lymph # (Auto) 1.4 x10E3/uL (1.00-4.8) 10/29/24 18:14 [place] # (Auto) 0.7 x10E3/uL (0.0-0.8) 10/29/24 18:14 [...] <Electronically signed by Maxime Magana DO> 10/29/24 0142 [facility] Work Phone: 1(939) 360-771002-23-2025 Evaluation note* Diagnosis Onset Date Resolution Status Admit Date Benign hypertension with end-stage renal disease acute October 29, 2024 7:28pm Cellulitis acute October 29, 2024 7:28pm Cellulitis of leg, right acute October 29, 2024 7:28pm ESRD on hemodialysis acute 2024 7:28pm Right foot infection acute 2024 7:28pm Type 2 diabetes mellitus wit h diabetic chronic kidney disease acute October 29 7:28pm [facility] Work Phone: 1(270) 392-466902-23-2025 [place] [address] Hospitalist H&P Signed Patient: Evans Forte MR#: [id number] : 1970 Acct:[id number] Age/Sex: 54 / M Adm Date: 5 Loc: Room: [address] [place] [address] Type: ADM IN Attending Dr: Maxime Magana DO Copies to: DO Maxime Dhillon DO~ HPI DATE OF EXAMINATION: 10/29/24 CHIEF COMPLAINT: right foot infection, right leg cellulitis. HISTORY OF PRESENT ILLNESS: This is a 54-year-old man who came to the emergency room with right foot infection. This is locatedin the heel. He went to the [facility] for a wound care center appointment and he says they opened it and they dug around really deep. He explains that he was made to go to the wound carecenter at the [facility] because the kidney transplant program there wants him to get everything done at the [facility]. So he has had only [...] by podiatry with Dr. Wilkes out of [place]. So there are a number of plates [...] of getting on the transplant list at [facility] and the last thing that [...] mentioned elsewhere in the documentation. [facility] Medical History (Updated 10/29/24 @ 21:11 by [...] (AV) fistula creation History of cardiac catheterization [facility] History of orthopedic surgery right foot has [...] % (Auto) 14.2 % (.) 10/29/24 18:14 [place] % (Auto) 6.8 % (.) 10/29/24 18:14 Eos % (Auto) 3.4 % (.) 10/29/24 18:14 Baso % (Auto) 1.1 % (.) 10/29/24 18:14 Nucleat RBC Rel Count 0.0 /100 WBC (0-0.5) 10/29/24 18:14 Neut # (Auto) 7.5 x10E3/uL (1.8-7.7) 10/29/24 18:14 Lymph # (Auto) 1.4 x10E3/uL (1.00-4.8) 10/29/24 18:14 [place] # (Auto) 0.7 x10E3/uL (0.0-0.8) 10/29/24 18:14 [...] Maxime Magana DO 2100 Signed By: 10/29/242113 [facility]02-11-2025 NotePatient was seen today in wound clinic. Documentation is provided in [facility] wound care documenting system. See Intellicure note [...] evidence of significant arterial occlusive disease bilaterally. [facility]02-11-2025 NoteSubjective Patient ID: Evans Forte is a 54 y.o. male who presents for pre transplant evaluation HPI A 54 year old male patient with ESRD on HD since Sep 2023, is in the process of renal transplant evaluation, has two ulcers on the right foot, one heal and one on the sole first metatarsal, he follows manager roofing for this, during his evaluation CT abdomen [...] anemia 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, 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, trunk prison current use of insulin (CMS/HCC) Microalbuminuria Mild [...] of water. 90 tablet (more content not included)...[facility]01-29-2025 Telephone encounter Note* Telephone Encounter - Gretchen Plummer - 10/04/2024 9:10 AM EST Pt's spouse is requesting a Referral, office notes, medication list to Dr. Martel for pain management fax [phone] [facility] [id number] Miscellaneous Notes* Telephone Encounter - Gretchen Plummer - 10/04/2024 9:10 AM EST Pt's spouse is requesting a Referral, office notes, medication list to Dr. Martel for pain management fax [phone] documented in this encounterSouthPointe HospitalYpulohpyvq73-61-1973 History of Present illness Narrative* Gi Mondragon [...] boot for offloading/pressure reduction. Patient does have [facility] for dressing changes. Encouraged him to keep [...] the patient to go to [facility] in [place] for their DM shoes and inserts. 4. Patient will be contacted for appointment information once pre-certification has been completed if required. documented in this encounterSouthPointe [id number] History of Present illness Narrative* Idania Ricketts [...] periods of time Vancomycin Hives Haloperidol Anxiety Hyde Oil GI intolerance Runny nose, watery eyes [...] 5,000 UNITS TABLET Daily. CONTINUOUS BLOOD GLUC SECURITY OPERATIONS ANALYST (DEXCOM G7 SECURITY OPERATIONS ANALYST) DEVICE 1 (one) time each day at [...] with the patient today. documented in this encounterSouthPointe HospitalYrnesbpscn22-40-74[address] NoteDr[address] Catia dunham both [facility]01-14-2025 History of Present illness Narrative* Idania [...] testing came back normal. He saw the proofing machine operator after this and they referred him to [...] periods of time Vancomycin Hives Haloperidol Anxiety Hyde Oil GI intolerance Runny nose, watery eyes [...] dermatitis Lymphedema - Primary Relevant Medications HYDROcodone-acetaminophen (Evergreen) 5-325 MG tablet Other Relevant Orders Ambulatory [...] notes that he is getting narcotics from [place] about every 3 months. He states that he doesn't go to [place] and that those are not his. He also says some of his dialysis medications keep getting sent to a kevin in [place] with the same name. He is to [...] 5,000 UNITS TABLET Daily. CONTINUOUS BLOOD GLUC SECURITY OPERATIONS ANALYST (DEXCOM G7 SECURITY OPERATIONS ANALYST) DEVICE 1 (one) time each day at [...] with the patient today. documented in this encounterSouthPointe HospitalXwfzvfbtzs98-93-1151 History of Present illness Narrative* Gi Mondragon [...] 5. RTC: 2-3 weeks. documented in this encounterSouthPointe [id number] NoteTC returned message to patient regarding work up status. Patient states has completed lymph node biopsy and bone biopsy and both came back negative. Patient recommended to follow up with infectious disease regarding lymph nodes. Patient continues to work on nicotine cessation, dental and podiatry. Patient will update TC after appointment with infectious disease. Melinda Hidalgo, JACOBUnMercy Health St. [facility]01-07-2025 Telephone encounter Note* Telephone Encounter - Gretchen Plummer - 09/12/2024 10:51 AM EST Pt's spouse called stating pt has cellulitis. Lower part of right leg is red, hot to the touch, andswollen. She feels he needs an antibiotic called in. [facility] in [place]. [facility] [id number] Miscellaneous Notes* Telephone Encounter - Gretchen Elian - 09/12/2024 10:51 AM EST Pt's spouse called stating pt has cellulitis. Lower part of right leg is red, hot to the touch, andswollen. She feels he needs an antibiotic called in. [facility] in [place]. documented in this encounterNOSSM Health Cardinal Glennon Children's HospitalOmafrocnvi19-29-2415 Note Attestation signed by Sivan Keller MD [...] 08/22/2024 MCH 30.9 1 (more content not included)...[facility] 09-05-2024 NoteSubjective Patient ID: Evans Forte [...] Summary Flow cytometry studies were completed at [facility] [employer]: Leukemia/lymphoma phenotyping evaluation by flow cytometry: - [...] the past 36 hour(s)). No follow-ups on file.[facility]12-30-2024 History of Present illness Narrative* Idania Ricketts, DO - 09/04/2024 1:30 PM EST Images from the original note were not included. Evans Forte is a 54 y.o. male presents with chief complaint of ER Follow-up HPI: [facility] ER Follow up from 08/28/2024 He [...] Ricketts, DO Hospital Information ED, Hospital or Assisted Facility Discharge? ED Patient has been contacted within 1 week of being seen in the ED Yes Diagnosis right leg edema Discharge Date 08/28/24 Discharged To: Home Setting Discharge [facility] Engagement Admission Date 08/28/24 Medications Discharge medications reviewed and reconciled from hospital? Yes Appointments Self Management Patient Teaching Wrap Up Wrap Up Additional Comments appt 09/04/2024 SUBJECTIVE: See medication list at the end of the note. Allergies Allergen Reactions Latex Rash Other Reaction(s): Unknown If on for long periods of time Vancomycin Hives Other Reaction(s): Unknown Other reaction(s): Unknown Haloperidol Anxiety Hyde Oil GI intolerance Runny nose, watery eyes [...] 5,000 UNITS TABLET Daily. CONTINUOUS BLOOD GLUC SECURITY OPERATIONS ANALYST (DEXCOM G7 SECURITY OPERATIONS ANALYST) DEVICE 1 (one) time each day at [...] with the patient today. documented in this encounterSouthPointe HospitalTdkeydmdiy28-73-2625 Telephone encounter Note* Telephone Encounter - Gretchen Camachoying - 09/01/2024 8:04 AM EST Copied from [facility] #[id number]. Topic: Clinical Support >> Aug 31, 2024 12:54 PM Jennifer Bone wrote: called in stating that he was seen at [facility] for his leg, but they refused to treat his leg, they gave him an ibuprofen and sent him home, but the thinks his right leg may be infected. Shewas advised to go to Urgent Care or ER but she will not go back to [facility]. She wanted to let Dr Emerson know what is going on and to advise what to do. SouthPointe HospitalOeilzrlbwf40-89-7469 Miscellaneous Notes* Telephone Encounter - Gretchen Elian - 09/01/2024 8:04 AM EST Copied from [facility] #[id number]. Topic: Clinical Support >> Aug 31, 2024 12:54 PM Jennifer Bone wrote: called in stating that he was seen at [facility] for his leg, but they refused to treat his leg, they gave him an ibuprofen and sent him home, but the thinks his right leg may be infected. Shewas advised to go to Urgent Care or ER but she will not go back to [facility]. She wanted to let Dr Emerson know what is going on and to advise what to do. documented in this encounterSouthPointe HospitalMnyyqhcyye95-11-9478 NotePatient: Evans Forte Procedure Summary Date: 08/22/24 Room / Location: [facility] OPERATING ROOM 05 / [facility] Operating Room Anesthesia Start: 1554 Anesthesia Stop: 172 Procedure: EXCISIONAL RIGHT GROIN LYMPH NODE BIOPSY (Right: Groin) Diagnosis: Enlarged lymph node Inguinal lymphadenopathy (Enlarged lymph node [R59.9]) Surgeons: rEick Carter MD Responsible Provider: Evans Rodriguez MD [...] PACU per anesthesia protocol. No notable events documented.[facility]12-17-2024 Note Patient: Evans Forte Procedure Information Date/Time: 08/22/24 1545 Procedure: EXCISIONAL RIGHT GROIN LYMPH NODE BIOPSY (Right: Groin) - PATIENT HAS APPT IN THE HOSP AT 11, CASE WILL FOLLOW HIS OTHER APPT AND [facility], MAKE SURE TO GETN CONSENT PRIOR PER CT Location: [facility] OPERATING ROOM 05 / [facility] Operating Room Surgeons: Erick Carter MD [...] breakfast. Yes Historical Prov (more content not included)...[facility]12-17-2024 NoteSedation Preparation Pre Procedure Evaluation Pre Procedure Evaluation: H&P was reviewed and the patient was examined. No change has occurred in the patient's condition since the H&P has been completed. ASA Score ASA: 3 Mallampati Mallampati: III Informed Consent Sedation Plan and Risks Explained: PatientUnMercy Health St. [facility] 08-22-2024 NotePlease let path know to add NGS for mds and myeloid with hypercellular marrow Thanks Sivan Keller MDUnMercy Health St. Elizabeth [facility]12-17-2024 NoteProcedure: CT-guided bone marrow biopsy and bone marrow aspiration Staff: Esme Resident: Marquise Contrast: None Complications: None Medications: Versed 2 mg iv. Fentanyl 100 mcg iv. Moderate sedation was monitored by the interventional radiology nursing staff. Total sedation time of 20 minutes Indication: Concern for lymphoma, staging Procedure: Using CT guidance, the [employer] system was used to perform bone marrow [...] and biopsy. Electronically signed: Jey Victoria. Henrik JohnsonOhioHealth Mansfield Hospital12-03-2024 NoteSubjective Patient ID: Evans Forte is a [...] skull base to mid thigh FDG Order: [id number] Status: Final result Visible to patient: Yes (seen) Dx: Enlarged lymph nodes; Pre-transplant ... 0 Result Notes Details Reading Physician Reading Date Result Priority Alonso Jaffe MD [phone] 07/31/2024 Routine Narrative & Impression History: Pretransplant [...] CT abdomen pelvis wo renal recipient Order: [id number] Status: Edited Result - FINAL Visible to patient: Yes (seen) Dx: Pre-transplant evaluation for kidney ... 0 Result Notes Details Reading Physician Reading Date Result Priority Alonso Sampson MD [phone] 07/12/2024 Routine Addenda Addendum: Note that there [...] iliac arteries. No suspiciou (more content not included)...[facility] 08-08-2024 Note Attestation signed by Sivan [...] Encounter Date: 08/08/2024 Patient Care Team: Idania Ricketst DO as PCP - General Ignacio Clay [...] Results Component Value Date (more content not included)...[facility]12-02-2024 History of Present illness Narrative* Idania [...] part of right foot with unspecified severity ([facility]) Obstructive sleep apnea syndrome Peripheral vascular disease ([facility]) Insomnia Pure hypercholesterolemia ([facility]) Type 2 diabetes mellitus with foot ulcer ([facility]) 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 ([facility]) Vitamin D deficiency Type 2 diabetes mellitus with ESRD (end-stage renal disease) ([facility]) Type 2 diabetes mellitus with peripheral neuropathy ([facility]) 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, with long-term current use of insulin ([facility]) Long-term insulin use ([facility]) Class 3 severe obesity due to excess calories with serious comorbidity and body mass index (BMI) of40.0 to 44.9 in adult ([facility]) Hx of amputation of lesser toe, left ([facility]) ([facility]) Adenoma of left adrenal gland Chronic kidney disease with end stage renal disease on dialysis due to type 2 diabetes mellitus ([facility]) Erectile dysfunction Hypoglycemia due to type 2 diabetes mellitus ([facility]) Hypogonadism male Iron deficiency anemia Past history [...] Reaction(s): Unknown Other reaction(s): Unknown Haloperidol Anxiety Hyde Oil GI intolerance Runny nose, watery eyes [...] List Items Addressed This Visit Acquired hypothyroidism ([facility]/HCC) Anxiety Dependence on renal dialysis ([facility]) End stage renal disease ([facility] Essential hypertension ([facility]) Obstructive sleep apnea syndrome - Primary Peripheral vascular disease ([facility]) Pure hypercholesterolemia ([facility]) 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 ([facility]) During the appointment today all pertinent labs, [...] diabetes mellitus with ESRD (end-stage renal disease) ([facility]/HCC) Type 2 diabetes mellitus with peripheral neuropathy ([facility]/HCC) 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, with long-term current use of insulin ([facility]) Long-term insulin use ([facility]) Class 3 severe obesity due to excess calories with serious comorbidity and body mass index (BMI) of40.0 to 44.9 in adult ([facility]) Hx of amputation of lesser toe, left (HCC) ([facility]) Chronic kidney disease with end stage renal disease on dialysis due to type 2 diabetes mellitus ([facility]) Other Visit Diagnoses Inguinal adenopathy Will be [...] 5,000 UNITS TABLET Daily. CONTINUOUS BLOOD GLUC SECURITY OPERATIONS ANALYST (DEXCOM G7 SECURITY OPERATIONS ANALYST) DEVICE 1 (one) time each day at the same time. CONTINUOUS BLOOD GLUC SENSOR (DEXCOM G7 SENSOR) [facility] as directed every 10 days for 90 [...] with the patient today. documented in this encounterSouthPointe [id number] NoteLeft message to call office back and schedule with Dr Nguyen for enlarged lymph nodes per referralGood [facility]11-[facility] NotePatient: Evans Forte Procedure Information Date/Time: 07/27/24 0830 Procedures: Coronary angiography Right heart cath Location: [facility] [employer] 3 / [facility] (Cath) Providers: Pedro [...] who consented to blood products. 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 , no house plants, no known TB exposure, Past Medical History: Past Medical History: Diagnosis Date Adrenal nodule (CMS/HCC) left adrenal adenoma Anemia Anxiety Charcot foot due to diabetes mellitus (CMS/HCC) Right, s/p reconstructive surgery Chronic sinusitis COVID-19 08/2023 Diabetic foot ulcers ([facility]/HCC) right Diabetic polyneuropathy ([facility]/HCC) Diabetic retinopathy ([facility]/HCC) ED (erectile dysfunction) ESRD (end stage renal disease) ([facility]) 11/23/2022 GERD (gastroesophageal reflux disease) Glaucoma History [...] Diabetic neuropathy (CMS/HCC) End stage renal disease ([facility]) Glaucoma Hypoglycemia due to type 2 diabetes mellitus (CMS/HCC) Iron deficiency anemia 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, 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, trunk prison current use of insulin (CMS/HCC) Microalbuminuria Mild [...] drink of jessee (more content not included)... [facility]11-07-2024 NotePatient returned call to TC. Discussed with patient need for additional testing recommended from CT abdomen and pelvis performed 07/11/24. Informed patient evaluating surgeon would like patient to obtain PET CT. Patient states okay to place order at [facility]. Order placed and mailed to patient. Melinda Hidalgo, JACOBUnMercy Health St. [facility]11-05-2024 NoteI saw the patient in clinic. [...] and patient financial responsibility forms they signed. [facility]11-05-2024 [id number] Evans Forte 1970 M Date Provider Department Center 07/11/2024 [facility] None Family History Problem Relation Age of [...] Grandmother Daughter Father's Brother Alive Level of Service:88767 [place] OFFICE/OUTPATIENT ESTABLISHED HIGH MDM 40 MIN Reason for Visit and Comments: Kidney Eval [[id number]][facility]11-05-2024 Note Coordinator met with patient for re-evaluation appointment today in the Transplant clinic. Patient watched the transplant education video. Reviewed transplant process and consents with patient. Answered patient questions. Social work, finance and appeals examiner in to see patient for review. Dr. Russell in for H&P and review of transplant plan. Dr. Moreland in for surgical evaluation. Coordinator provided copy of plan to patient and reviewed it with them. Patient aware further testing needed and to keep transplant team updated. Understanding verbalized by patient. Sent patient for labs, EKG & CXR today. Philosophy Faculty Member provided patient TE folder with education on various transplant consents, the workup process, surgery details, postop expectations, transplant statistics, and living donor information. Answered patient questions and verified understanding. Melinda Hidalgo, JACOBUnMercy Health St. [facility]11-05-2024 NotePre- Transplant Evaluation Nephrology Consult Chief Complaint Patient presents with Kidney Eval PCP: Idania Ricketts DO Txp Referring: Ada Uriostegui Preferred Pharmacy: [id number] [address] Organ: Kidney Subjective Visit Vitals BP 134/69 [...] Other reaction(s): Unknown Adhesive Rash Haloperidol Anxiety Hyde Oil GI intolerance Runny nose, watery eyes Medication Documentation Review Audit Reviewed by Sita Danielson MA (Seafood Farmer) on 07/11/24 at 0808 Medication Order Taking? Sig Documenting Provider Last Dose Status anastrozole (Arimidex) 1 mg chemo tablet [id number] Yes Take 1 tablet (1 mg total) by mouth in the morning Swallow whole with a drink of water. Adams Tate NP Taking Active aspirin 81 mg chewable tablet [id number] Yes Chew 1 tablet (81 mg) in the morning. Pedro Alvarez MD Taking Active atorvastatin (Lipitor) 20 mg tablet [id number] Yes Take 1 tablet every day by oral route. Zia Harden MD Taking Active b complex 0.4 mg tablet [id number] Yes Take 1 tablet by mouth in the morning and at bedtime. Zia Harden MD Taking Active calcitriol (Rocaltrol) 0.25 mcg capsule [id number] Yes Take 0.25 mcg by mouth in the morning. Zia Harden MD Taking Active calcium acetate (Phoslo) 667 mg capsule [id number] Yes take 2 capsules by mouth with meals three times a day then take 1... (REFER TO PRESCRIPTION NOTES). Zia Harden MD Taking Active carvedilol (Coreg) 12.5 mg tablet [id number] Yes Take 12.5 mg by mouth with breakfast and with evening meal. Zia Harden MD Taking Active cholecalciferol (D3-5) 5,000 Units tablet [id number] Yes Take 1 tablet every day by oral route. Zia Harden MD Taking Active furosemide (Lasix) 80 mg tablet [id number] Yes Take 80 mg by mouth two times daily. Zia Harden MD Taking Active insulin glargine (Lantus) 100 unit/mL injection vial [id number] Yes Inject 60 Units under the skin in the morning. Zia Harden MD Taking Active insulin lispro (HUMALOG KWIKPEN INSULIN SUBQ) [id number] Yes Inject 10 Units under the skin with breakfast, with lunch, and with evening meal. Zia Harden MD Taking Active levothyroxine (Synthroid, Levoxyl) 100 mcg tablet [id number] Yes Take 1 tablet every day by oral route. Zia Harden MD Taking Active polyethylene glycol (GoLYTELY) 236-22.74-6.74 -5.86 gram solution [id number] For day 2 of 2 day prep Ermias Goodrich FACILITY WORKER Active polyethylene glycol (GoLYTELY) 236-22.74-6.74 -5.86 gram solution [id number] No For day 1 of 2 day prep Patient not taking: Reported on 07/11/2024 Ermiasjase Goodrich FACILITY WORKER Not Taking Flag for Review tadalafil (Cialis) 20 mg tablet [id number] Take 1 tablet (20 mg) by mouth if needed each day for erectile dysfunction. Adams Tate NP 04/27/23 235 testosterone 1.62 % (20.25 mg/1.25 gram) gel in packet [id number] Yes APPLY 1 PACKET DIRECTED ONCE DAILY [...] of left foot Type 2 diabetes mellitus ([facility] [facility]) Charcot's joint of foot Essential hypertension Acquired hypothyroidism Hyperlipidemia Vitamin D deficiency Libido, decreased Erectile dysfunction Hypogonadism male Diabetic neuropathic arthropathy ([facility]) Diabetic neuropathy ([facility] End stage renal disease ([facility]) Glaucoma Hypoglycemia due to type 2 diabetes mellitus ([facility]) Iron deficiency anemia 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, 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, trunk 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 current use of insulin ([facility]/HCC) Microalbuminuria Mild left ventricular systolic dysfunction Morbid obesity ([facility]/HCC) Obstructive sleep apnea syndrome Osteomyelitis ([facility]/HCC) Polyneuropathy due to type 2 diabetes mellitus ([facility]/HCC) Ulcer of right foot with fat layer exposed ([facility]/HCC) Pure hypercholesterolemia Disorder of adrenal gland (CMS/HCC) Type 2 diabetes mellitus with 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 edema, unspecified eye (CMS/HCC) Peripheral vascu (more content not included)...[facility]11-05-2024 NotePre-Transplant Kidney Evaluation Surgery Consultation PCP: Idania Ricketts DO Txp Referring: Ada Uriostegui Preferred Pharmacy: [id number] [address] [facility] [address] [facility] [id number] Organ: Kidney Subjective Visit Vitals BP 134/69 [...] Other reaction(s): Unknown Adhesive Rash Haloperidol Anxiety Hyde Oil GI intolerance Runny nose, watery eyes Medication Documentation Review Audit Reviewed by Sita Danielson MA (Seafood Farmer) on 07/11/24 at 0808 Medication Order Taking? Sig Documenting Provider Last Dose Status anastrozole (Arimidex) 1 mg chemo tablet [id number] Yes Take 1 tablet (1 mg total) by mouth in the morning Swallow whole with a drink of water. Adams Tate NP Taking Active aspirin 81 mg chewable tablet [id number] Yes Chew 1 tablet (81 mg) in the morning. Pedro Alvarez MD Taking Active atorvastatin (Lipitor) 20 mg tablet [id number] Yes Take 1 tablet every day by oral route. Historical ProviderMD Taking Active b complex 0.4 mg tablet [id number] Yes Take 1 tablet by mouth in the morning and at bedtime. Historical ProviderMD Taking Active calcitriol (Rocaltrol) 0.25 mcg capsule [id number] Yes Take 0.25 mcg by mouth in the morning. Zia ProviderMD Taking Active calcium acetate (Phoslo) 667 mg capsule [id number] Yes take 2 capsules by mouth with meals three times a day then take 1... (REFER TO PRESCRIPTION NOTES). Zia ProviderMD Taking Active carvedilol (Coreg) 12.5 mg tablet [id number] Yes Take 12.5 mg by mouth with breakfast and with evening meal. Historical Provider, Taking Active cholecalciferol (D3-5) 5,000 Units tablet [id number] Yes Take 1 tablet every day by oral route. Historical Provider, Taking Active furosemide (Lasix) 80 mg tablet [id number] Yes Take 80 mg by mouth two times daily. Historical Provider, Taking Active insulin glargine (Lantus) 100 unit/mL injection vial [id number] Yes Inject 60 Units under the skin in the morning. Historical Provider, Taking Active insulin lispro (HUMALOG KWIKPEN INSULIN SUBQ) [id number] Yes Inject 10 Units under the skin with breakfast, with lunch, and with evening meal. Historical Provider, Taking Active levothyroxine (Synthroid, Levoxyl) 100 mcg tablet [id number] Yes Take 1 tablet every day by oral route. Historical Provider, Taking Active polyethylene glycol (GoLYTELY) 236-22.74-6.74 -5.86 gram solution [id number] For day 2 of 2 day prep Ermias Goodrich NP Active polyethylene glycol (GoLYTELY) 236-22.74-6.74 -5.86 gram solution [id number] No For day 1 of 2 day prep Patient not taking: Reported on 07/11/2024 Ermias Goodrich NP Not Taking Flag for Review tadalafil (Cialis) 20 mg tablet [id number] Take 1 tablet (20 mg) by mouth if needed each day for erectile dysfunction. Adams Tate NP 04/27/23 0740 testosterone 1.62 % (20.25 mg/1.25 gram) gel in packet [id number] Yes APPLY 1 PACKET DIRECTED ONCE DAILY [...] anemia 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, 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, trunk prison current use of insulin (CMS/HCC) Microalbuminuria Mild [...] eye (CMS/HCC) Peripheral vas (more content not included)...[facility] 07-11-2024 NoteTransplant Nutrition Assessment Name: Evans [...] years, intentional with diet changes. Food Allergy: Hyde seeds Current diet: Renal diet. No supplements . High protein and vegetables. Nutrition/Diet: Most meals eaten at home. Diabetes Management: 60 units lantus and humalog 10units TID. Checks blood sugars often (has a dexcom). A1C 6.3% Diet Recall Breakfast: Skips on dialysis days or has eggs. Lunch: [place] or a salad. Dinner: Variety of meats, [...] changes to expect post transplant. Gerri Powell RDGood [facility]aritan Hospital11-05-[facility] Note Identifying Information Name: Evans Shen Jann : 1970 Assessment date: 07/11/2024 Transplant type: Kidney Transplant Evaluation - 10/12/2019 Primary language: Hungarian Caodaism/spirituality: Episcopal People present at assessment: sister Caryn Carroll Do you have any sabianist, ethical or personal objections to accepting blood products, surgery and/or transplant? No Citizenship Where were you born? In the [place] [facility] Where do you currently live or are staying? [facility] Is this greater than 3-4 hours from [facility]? No. 1 Hour Family Background and Supportive Relationships Mother: COD: Breast Cancer with mets to brain. Father: COD: Heart attack Siblings: 1 sister: Caryn Healthy Children: Biological Number of children, living or (UNOS question): 1 Names, age, health status, relationship, address: Teresa, Shankar, healthy, King, daughter. Marital/relationship status: for 30 years Household composition: Patient, , step-grandaughter. Are there any current or past significant life changes or traumatic events? No Support / Caregiver Plans Who will be your primary caregiver? 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 Who will be your secondary caregiver(s)? sibling Contact #: Caryn [phone] Health status & availability: Healthy, doesn't work, [...] of work do you/did you do? [employer]. Date of last employment: April 2022 What [...] Subscriber Name Rel Member # Group # [facility] - U* EVANS FORTE Self [id number] [address] [address] [facility] MED* EVANS FORTE Self [id number] [address] [address] Are you aware of a coordination of benefits with your insurance and Medicare (if applicable)? no- mailing Medicare and ESRD info to patient. Are you receiving assistance through [employer] [facility] JANICE Program: No Medication Coverage Do you have prescription coverage: Yes What are your medication costs for generic, preferred brand, and non-preferred brand medications? $Nothing Indicate medication costs after transplant: Educated How will you pay for these medications after transplant? Insurance VA Benefits Have you served in the [employer]? No Understanding of Medical Situation What is [...] 03/06/2023 Peritoneal [facility]. Dialysis Center Information [facility]. Address: [address] [place] [address], [address] Dialysis Schedule: MWF, 5:30AM, 4H15M, a [...] HD diet, p (more content not included)... [facility] History of Present illness Narrative* Gi Mondragon, TIARA - 06/29/2024 9:30 AM EDT Images from [...] boot for offloading/pressure reduction. Patient does have [facility] for dressing changes. Encouraged him to keep [...] 5. RTC: 2-3 weeks. 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 Judgment: Judgment normal. (more content not included)...[facility]10-15-[facility]24 NotePatient: Evans Forte Procedure Summary Date: 06/20/24 Room / Location: [facility] Anesthesia Start: 1056 Anesthesia Stop: 1201 Procedure: [...] PACU per anesthesia protocol. No notable events documented.[facility]10-15-2024 Note Patient: Evans Foret Procedure Information Date/Time: 06/20/24 1200 Scheduled providers: Anya Henley MD; Vinay Avila MD Procedure: SURVEILLANCE COLONOSCOPY Location: [facility] Relevant Problems Anesthesia (+) Obstructive sleep apnea [...] products. Plan discussed with resident. [facility] Note Medication resent to patients preferred pharmacy as requested.[facility]10-03-[facility]24 History of Present illness Narrative* Gi [...] boot for offloading/pressure reduction. Patient does have [facility] for dressing changes. Encouraged him to keep [...] 5. RTC: 2-3 weeks. documented in this encounterSouthPointe [id number] Telephone encounter Note* Telephone Encounter - Gi Mondragon DPM - 05/31/2024 2:20 PM EDT Refill request was approved. Prescription was sent to his preferred pharmacy. SouthPointe HospitalLhisvppeeu60-79-1472 Miscellaneous Notes* Telephone Encounter - Gi Mondragon DPM - 05/31/2024 2:20 PM EDT Refill request was approved. Prescription was sent to his preferred pharmacy. * Telephone Encounter - Sophia Martini MA - 05/30/2024 2:02 PM EDT Patient called and stated that he would like a refill of Pregabalin. Please advise, thank you. documented in this encounterSouthPointe [id number] Telephone encounter Note* Telephone Encounter - Sophia Martini MA - 05/30/2024 2:02 PM EDT Patient called and stated that he would like a refill of Pregabalin. Please advise, thank you. SouthPointe HospitalZbcyyifkmk63-21-0549 NoteSubjective Patient ID: Evans Forte is a 54 y.o. male who presents for Follow-up (Lab results ). HPI 05.26.24 Pt here for office visit with his . Pt established with Dr Clay for hypogonadism, ED and pending Renal Transplant list. Pt is having wound care to right foot at this time. ESRD treated with Dialysis 3 x week locally in [place]. Pt labs reviewed: T Levels: 05/23/24 373 [...] Order fax to [facility]. 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 No CP or SOB. No N/V/D. No abd/flank pain. Pt continues with better level of fatigue. CKD with ESRD 2/2 DM on Dialysis: [facility] in [place]. Plan: Follow up Trimix Trial with Meds. [...] hemo at center - diabetes: Yes - check examiner: 3. Urination: - amount of urine made: [...] - any previous fertility (more content not included)...[facility] History of Present illness Narrative* Gi [...] boot for offloading/pressure reduction. Patient does have [facility] for dressing changes. Encouraged him to keep [...] 5. RTC: 2 weeks. documented in this encounterSouthPointe [id number] History of Present illness Narrative* Idaniakavita Ricketts DO - 05/16/2024 12:35 PM EDTAssociated [...] presents with chief complaint of Anxiety HPI: [facility] Insurance will no longer cover Lyrica- wondering if he can be put back on gabapentin. Pt here for anxiety Went to [facility] last night d/t panic attack. Was prescribed Ativan Filled Ativan last night and took one dose last night. Pt states Ativan did help. [facility] will becontacting him to scheduled appt [...] Reaction(s): Unknown Other reaction(s): Unknown Haloperidol Anxiety Hyde Oil GI intolerance Runny nose, watery eyes [...] 5,000 UNITS TABLET Daily. CONTINUOUS BLOOD GLUC SECURITY OPERATIONS ANALYST (DEXCOM G7 SECURITY OPERATIONS ANALYST) DEVICE 1 (one) time each day at [...] with the patient today. documented in this encounterSouthPointe [id number] History of Present illness Narrative* Gi Mondragon [...] 5. RTC: 2 weeks. documented in this encounterSouthPointe [id number] Telephone encounter Note* Telephone Encounter - Melinda Dailey LPN - 04/27/2024 2:01 PM EDT Pt was on mounjaro 7.5 and it was unavailable and was switched to ozepmic 2mg. Pt states he is not losing weight and would like to go back to mounjaro. Okay to send in? SouthPointe HospitalLtxynbrzeb62-26-4540 Miscellaneous Notes* Telephone Encounter - Melinda Dailey [...] asking for Mounjaro 7.5mg documented in this encounterSouthPointe HospitalAucqqlfvlc98-02-5516 Telephone encounter Note* Telephone Encounter - Anayeli Mack LPN - 04/26/2024 4:00 PM EDT LVM that insurance will no long pay for novolog and asking for alternative. Also asking for Mounjaro 7.5mg SouthPointe [id number] Progress note Author Gi Mondragon [facility] November 23, 2023 3:53pm Note Date/Time November 23, 2023 3:5 3pm [facility] [address] [place] [address] Podiatry Progress Note Signed Patient: Evans Forte MR#: [id number] : 1970 Acct:[id number] Age/Sex: 53 / M Adm Date: 4 Loc: Room: [address] [place] [address] Type: ADM IN Attending Dr: Amy Escudero DO Copies to: ~ Subjective Subjective Date of Service: Date of Service: 11/23/2023 Time of Service: 15:51 Narrative: Mr. Forte is a 53 year old male who was admitted due to symptoms of sepsis. Patient has a large ulceration on the bottom of the right great toe and heel. 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 Patient states that the ulcerations [...] large hyperkeratosis. Patient will follow-up with his manager roofing and family for further wound care. Discussed [...] By: <Electronically signed by TIARA Mondragon> 11/23/23 [address] [facility] Work Phone: 1(214) 426-441103-19-2024 Consult note Author Gi Mondragon [facility] November 23, 2023 3:51pm Note Date/Time November 22, 2023 5:3 0pm [facility] [address] [place] [address] Podiatry Consult Note Signed Patient: Evans Forte MR#: [id number] : 1970 Acct:[id number] Age/Sex: 53 / M Adm Date: 4 Loc: Room: [address] [place] [address] Type: ADM IN Attending Dr: Amy Escudero [...] heel. 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 Patient states that the ulcerations [...] noted below or in HPI [facility] Medical History (Updated 11/23/23 @ 10:16 by [...] 2 Surgical History History of cardiac catheterization [facility] History of orthopedic surgery right foot has [...] By: <Electronically signed by TIARA Mondragon> 11/23/23 [address] [facility] Work Phone: 1(521) 571-971303-19-2024 Progress note Author Amy Escudero [facility] November 24, 2023 1:40pm Note Date/Time November 23, 2023 1:0 3pm [facility] [address] [place] [address] Hospitalist Progress Note Signed Patient: Evans Forte MR#: [id number] : 1970 Acct:[id number] Age/Sex: 53 / M Adm Date: 4 Loc: Room: [address] [place] [address] Type: DIS IN Attending Dr: Amy Escudero [...] 0.25 Mcg Capsule PO 11/22/24 08:59 TuThSa@0900 [facility] Calcium Acetate 2,668 mg 11/21/23 07:30 11/23/23 [...] Vial IV-PUSH 11/22/24 09:29 25 mcg Tu@0930 [facility] Administration Protocol Furosemide 80 mg 11/22/23 16:00 11/23/23 08:52 Furosemide 80 Mg Tablet PO 11/21/24 15:59 Not Given BID@0800,1600 [facility] Heparin Sodium (Porcine) 5,000 unit 11/21/23 09:00 11/23/23 08:53 Heparin 5,000 Unit/Ml Vial SUBCUT 11/20/24 08:59 Not Given Q12HR [facility] Heparin Sodium (Porcine) 2,000 unit 11/23/23 09:20 [...] TRANSDERML 11/20/24 08:59 Not Given Packet DAILY [facility] Tirzepatide [ 5 mg 11/30/23 09:00 Mounjaro] 5 Mg/0.5 SUBCUT 11/29/24 08:59 Ml Pen Injector Tu@0900 [facility] Ondansetron HCl 4 mg 11/20/23 21:03 Ondansetron [...] signed by Amy Escudero DO> 11/24/23 1340 [facility] Work Phone: [phone]) 342-351803-19-2024 Progress note Author Ada Uriostegui [facility] November 23, 2023 12:09pm Note Date/Time November 23, 2023 10: 34am [facility] [address] [place] [address] Nephrology Progress Note Signed Patient: Evans Forte MR#: [id number] : 1970 Acct:[id number] Age/Sex: 53 / M Adm Date: 4 Loc: Room: [address] [place] [address] Type: ADM IN Attending Dr: Amy Escudero DO Copies to: ~ Date of Service: 11/23/2023 Subjective Subjective Narrative: This is a 53-year-old male patient with a past medical history of hypertension, hyperlipidemia, end-stage renal disease on TTS hemodialysis schedule at [facility], insulin-dependent diabetes mellitus, obstructive sleep apnea, [...] Skin: No rashes , warm to touch 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,Alert, following simple command Musculoskeletal: No joint [...] 1 Mg Tablet) 1 mg PO QAM [facility] Stop: 11/20/24 08:59 Last Admin: 11/22/23 08:14 Dose: 1 mg Atorvastatin Calcium (Atorvastatin 20 Mg Tablet) 20 mg PO QAM [facility] Stop: 11/20/24 08:59 Last Admin: 11/22/23 08:13 Dose: 20 mg Calcitriol (Calcitriol 0.25 Mcg Capsule) 0.25 mcg PO TuThSa@0900 [facility] Stop: 11/22/24 08:59 Calcium Acetate (Calcium Acetate 667 Mg Capsule) 2,668 mg PO AC [facility] Stop: 11/20/24 07:29 Last Admin: 11/23/23 08:52 Dose: Not Given Carvedilol (Carvedilol 6.25 Mg Tablet) 6.25 mg PO BID [facility] Stop: 11/21/24 13:29 Last Admin: 11/23/23 08:53 Dose: Not Given Cyanocobalamin (Cyanocobalamin 1,000 Mcg Tablet) 1,000 mcg PO DAILY [facility] Stop: 11/20/24 08:59 Last Admin: 11/22/23 08:13 Dose: 1,000 mcg Darbepoetin Zechariah (Darbepoetin Zechariah In Polysorbat 25 Mcg/Ml Vial) 25 mcg IV-PUSHTu@0930 [facility]; Protocol Stop: 11/22/24 09:29 Furosemide (Furosemide 80 Mg Tablet) 80 mg PO BID@0800,1600 [facility] Stop: 11/21/24 15:59 Last Admin: 11/23/23 08:52 Dose: Not Given Heparin Sodium (Porcine) (Heparin 5,000 Unit/Ml Vial) 5,000 unit SUBCUT Q12HR [facility] Stop: 11/20/24 08:59 Last Admin: 11/23/23 08:53 [...] 300 mls @ 300 mls/hr IV Q12H [facility] Last Admin: 11/22/23 21:02 Dose: 300 mls/hr Ceftriaxone Sodium (Rocephin) 2 gm in 50 mls @ 100 mls/hr IV Q24H [facility] Last Admin: 11/22/23 19:25 Dose: 100 mls/hr Sodium Chloride (0.9% Sodium Chloride 1,000 Ml) 1,000 mls @ 0 mls/hr MISCELLANE.Q0M PRN PRN Reason: Dialysis Stop: 11/22/24 09:19 Last Infusion: 11/23/23 09:43 Dose: Infused Insulin Aspart (Insulin Aspart 300 Units/3 Ml Insuln.Pen) 0 units SUBCUT ACHS [facility]; Protocol Stop: 11/20/24 16:29 Last Admin: 11/23/23 08:52 Dose: Not Given Insulin Human Regular (Insulin Regular U-500, Human 1,500 Unit/3 Ml Insuln.Pen) 50 unit SUBCUT BID [facility] Stop: 11/20/24 08:59 Last Admin: 11/23/23 08:53 Dose: Not Given Levothyroxine Sodium (Levothyroxine 100 Mcg Tablet) 100 mcg PO DAILY.0630 [facility] Stop: 11/20/24 06:29 Last Admin: 11/23/23 05:38 [...] Gel In Packet 1 packet TRANSDERML DAILY [facility] Stop: 11/20/24 08:59 Last Admin: 11/23/23 08:53 Dose: Not Given Tirzepatide [ Mounjaro] 5 Mg/0.5 Ml Pen Injector 5 mg SUBCUT Tu@0900 [facility] Stop: 11/29/24 08:59 Ondansetron HCl (Ondansetron 4 Mg/2 Ml Vial) 4 mg IV-PUSH Q8H PRN PRN Reason: Nausea And Vomiting Stop: 11/19/24 21:02 Pregabalin (Pregabalin 50 Mg Capsule) 50 mg PO DAILY [facility] Stop: 05/21/24 08:59 Sodium Chloride (Sodium Chloride [...] diabetic nephropathy. Patient has been going to [facility] for hemodialysis. Last hemodialysis session was [...] signed by Ada Uriostegui MD> 11/23/23 120 [facility] Work Phone: 1(458) 230-418103-19-2024 Progress note Author Chintan Hernández [facility] November 23, 2023 10:54am Note Date/Time November 23, 2023 10: 54am [facility] [address] [place] [address] Infect. Disease Progress Note Signed Patient: Evans Forte MR#: [id number] : 1970 Acct:[id number] Age/Sex: 53 / M Adm Date: 4 Loc: Room: [address] [place] [address] Type: ADM IN Attending Dr: Amy Escudero [...] 1 Mg Tablet) 1 mg PO QAM [facility] Stop: 11/20/24 08:59 Last Admin: 11/22/23 08:14 Dose: 1 mg Atorvastatin Calcium (Atorvastatin 20 Mg Tablet) 20 mg PO QAM [facility] Stop: 11/20/24 08:59 Last Admin: 11/22/23 08:13 Dose: 20 mg Calcitriol (Calcitriol 0.25 Mcg Capsule) 0.25 mcg PO TuThSa@0900 [facility] Stop: 11/22/24 08:59 Calcium Acetate (Calcium Acetate 667 Mg Capsule) 2,668 mg PO AC [facility] Stop: 11/20/24 07:29 Last Admin: 11/23/23 08:52 Dose: Not Given Carvedilol (Carvedilol 6.25 Mg Tablet) 6.25 mg PO BID [facility] Stop: 11/21/24 13:29 Last Admin: 11/23/23 08:53 Dose: Not Given Cyanocobalamin (Cyanocobalamin 1,000 Mcg Tablet) 1,000 mcg PO DAILY [facility] Stop: 11/20/24 08:59 Last Admin: 11/22/23 08:13 Dose: 1,000 mcg Darbepoetin Zechariah (Darbepoetin Zechariah In Polysorbat 25 Mcg/Ml Vial) 25 mcg IV-PUSHTu@0930 [facility]; Protocol Stop: 11/22/24 09:29 Furosemide (Furosemide 80 Mg Tablet) 80 mg PO BID@0800,1600 [facility] Stop: 11/21/24 15:59 Last Admin: 11/23/23 08:52 Dose: Not Given Heparin Sodium (Porcine) (Heparin 5,000 Unit/Ml Vial) 5,000 unit SUBCUT Q12HR [facility] Stop: 11/20/24 08:59 Last Admin: 11/23/23 08:53 [...] 300 mls @ 300 mls/hr IV Q12H [facility] Last Admin: 11/22/23 21:02 Dose: 300 mls/hr Ceftriaxone Sodium (Rocephin) 2 gm in 50 mls @ 100 mls/hr IV Q24H [facility] Last Admin: 11/22/23 19:25 Dose: 100 mls/hr Sodium Chloride (0.9% Sodium Chloride 1,000 Ml) 1,000 mls @ 0 mls/hr MISCELLANE.Q0M PRN PRN Reason: Dialysis Stop: 11/22/24 09:19 Last Infusion: 11/23/23 09:43 Dose: Infused Insulin Aspart (Insulin Aspart 300 Units/3 Ml Insuln.Pen) 0 units SUBCUT ACHS [facility]; Protocol Stop: 11/20/24 16:29 Last Admin: 11/23/23 08:52 Dose: Not Given Insulin Human Regular (Insulin Regular U-500, Human 1,500 Unit/3 Ml Insuln.Pen) 50 unit SUBCUT BID [facility] Stop: 11/20/24 08:59 Last Admin: 11/23/23 08:53 Dose: Not Given Levothyroxine Sodium (Levothyroxine 100 Mcg Tablet) 100 mcg PO DAILY.0630 [facility] Stop: 11/20/24 06:29 Last Admin: 11/23/23 05:38 [...] Gel In Packet 1 packet TRANSDERML DAILY [facility] Stop: 11/20/24 08:59 Last Admin: 11/23/23 08:53 Dose: Not Given Tirzepatide [ Mounjaro] 5 Mg/0.5 Ml Pen Injector 5 mg SUBCUT Tu@0900 [facility] Stop: 11/29/24 08:59 Ondansetron HCl (Ondansetron 4 Mg/2 Ml Vial) 4 mg IV-PUSH Q8H PRN PRN Reason: Nausea And Vomiting Stop: 11/19/24 21:02 Pregabalin (Pregabalin 50 Mg Capsule) 50 mg PO DAILY [facility] Stop: 05/21/24 08:59 Sodium Chloride (Sodium Chloride [...] signed by MD Chintan Hernández> 11/23/23 105 [facility] Work Phone: 1(398) 815-369803-18-2024 Progress note Author Ada Uriostegui [facility] November 22, 2023 12:53pm Note Date/Time November 22, 2023 12: 53pm [facility] [address] [place] [address] Nephrology Progress Note Signed Patient: Evans Forte MR#: [id number] : 1970 Acct:[id number] Age/Sex: 53 / M Adm Date: 4 Loc: Room: [address] [place] [address] Type: ADM IN Attending Dr: Amy Escudero DO Copies to: ~ Date of Service: 11/22/2023 Subjective Subjective Narrative: This is a 53-year-old male patient with a past medical history of hypertension, hyperlipidemia, end-stage renal disease on TTS hemodialysis schedule at [facility], insulin-dependent diabetes mellitus, obstructive sleep apnea, [...] Skin: No rashes , warm to touch 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,Alert, following simple command Musculoskeletal: No joint [...] (Anastrozole 1 Mg Tablet) [facility] [place] [facility] Stop: 11/20/24 08:59 Last Admin: 11/22/23 08:14 Dose: 1 mg Atorvastatin Calcium (Atorvastatin 20 Mg Tablet) 20 mg PO QAM [facility] Stop: 11/20/24 08:59 Last Admin: 11/22/23 08:13 Dose: 20 mg Calcitriol (Calcitriol 0.25 Mcg Capsule) 0.25 mcg PO TuThSa@0900 [facility] Stop: 11/22/24 08:59 Calcium Acetate (Calcium Acetate 667 Mg Capsule) 2,668 mg PO AC [facility] Stop: 11/20/24 07:29 Last Admin: 11/22/23 11:21 Dose: 2,668 mg Carvedilol (Carvedilol 6.25 Mg Tablet) 6.25 mg PO BID [facility] Stop: 11/21/24 12:19 Cyanocobalamin (Cyanocobalamin 1,000 Mcg Tablet) 1,000 mcg PO DAILY [facility] Stop: 11/20/24 08:59 Last Admin: 11/22/23 08:13 Dose: 1,000 mcg Heparin Sodium (Porcine) (Heparin 5,000 Unit/Ml Vial) 5,000 unit SUBCUT Q12HR [facility] Stop: 11/20/24 08:59 Last Admin: 11/22/23 08:14 Dose: 5,000 unit Linezolid (Zyvox) 600 mg in 300 mls @ 300 mls/hr IV Q12H [facility] Last Admin: 11/22/23 08:58 Dose: 300 mls/hr Ceftriaxone Sodium (Rocephin) 2 gm in 50 mls @ 100 mls/hr IV Q24H [facility] Last Admin: 11/21/23 19:41 Dose: 100 mls/hr Insulin Aspart (Insulin Aspart 300 Units/3 Ml Insuln.Pen) 0 units SUBCUT ACHS [facility]; Protocol Stop: 11/20/24 16:29 Last Admin: 11/22/23 11:22 Dose: 2 units Insulin Human Regular (Insulin Regular U-500, Human 1,500 Unit/3 Ml Insuln.Pen) 50 unit SUBCUT BID [facility] Stop: 11/20/24 08:59 Last Admin: 11/22/23 08:16 Dose: 50 unit Levothyroxine Sodium (Levothyroxine 100 Mcg Tablet) 100 mcg PO DAILY.0630 [facility] Stop: 11/20/24 06:29 Last Admin: 11/22/23 05:29 [...] Gel In Packet 1 packet TRANSDERML DAILY [facility] Stop: 11/20/24 08:59 Last Admin: 11/22/23 11:21 Dose: Not Given Tirzepatide [ Mounjaro] 5 Mg/0.5 Ml Pen Injector 5 mg SUBCUT Tu@0900 [facility] Stop: 11/29/24 08:59 Ondansetron HCl (Ondansetron 4 [...] Taqueria Reese M.D.11/21/2023 4:39 PM Dictation Location: [address] 11/22/23 07:00 IMPRESSION: NO HEMODYNAMICALLY SIGNIFICANT PERIPHERAL VASCULAR OCCLUSIVE DISEASE AT REST IN EITHER LOWER EXTREMITY. Impression dictated by: Ramirez Jean M.D.11/22/2023 10:09 AM Dictation Location: [place] [address] Any impression(s) listed above is documentation that [...] diabetic nephropathy. Patient has been going to [facility] for hemodialysis. Last hemodialysis session was [...] <Electronically signed by Ada Uriostegui MD> 11/22/23 1258 [facility] Work Phone: 1(242) 439-436003-18-2024 Progress note Author Amy Escudero [facility] November 22, 2023 12:45pm Note Date/Time November 22, 2023 10: 37am [facility] [address] [place], [place] [id number] Hospitalist Progress Note Signed Patient: Evans Forte MR#: [id number] : 1970 Acct:[id number] Age/Sex: 53 / M Adm Date: 4 Loc: Room: [address] [place] [address] Type: ADM IN Attending Dr: Amy Escudero [...] Insuln.Pen SUBCUT 11/20/24 16:29 Not Given ACHS [facility] Protocol Insulin Human Regular 50 unit 11/21/23 [...] VINCE Tirzepatide [ 5 mg 11/30/23 09:00 Shawnunandrewro] 5 Mg/0.5 SUBCUT 11/29/24 08:59 Ml Pen [...] <Electronically signed by Amy Escudero DO> 11/22/23 1240 [facility] Work Phone: 1([phone] 543-230603-18-2024 Consult note Author Chintan Hernández [facility] November 22, 2023 11:26am Note Date/Time November 22, 2023 11: 26am [facility] [address] [place] [address] Infect. Disease Consult Note Signed Patient: Evans Forte MR#: [id number] : 1970 Acct:[id number] Age/Sex: 53 / M Adm Date: 4 Loc: Room: [address] [place] [address] Type: ADM IN Attending Dr: Amy Escudero [...] noted below or in HPI [facility] Medical History (Updated 11/22/23 @ 11:24 by [...] 2 Surgical History History of cardiac catheter[place] [facility] History of orthopedic surgery right foot has [...] (Anastrozole 1 Mg Tablet) [facility] [place] Stop: 11/20/24 08:59 Last Admin: 11/22/23 08:14 Dose: 1 mg Atorvastatin Calcium (Atorvastatin 20 Mg Tablet) 20 mg PO QAM [facility] Stop: 11/20/24 08:59 Last Admin: 11/22/23 08:13 Dose: 20 mg Calcitriol (Calcitriol 0.25 Mcg Capsule) 0.25 mcg PO TuThSa@0900 [facility] Stop: 11/22/24 08:59 Calcium Acetate (Calcium Acetate 667 Mg Capsule) 2,668 mg PO AC [facility] Stop: 11/20/24 07:29 Last Admin: 11/22/23 08:13 Dose: 2,668 mg Cyanocobalamin (Cyanocobalamin 1,000 Mcg Tablet) 1,000 mcg PO DAILY [facility] Stop: 11/20/24 08:59 Last Admin: 11/22/23 08:13 Dose: 1,000 mcg Heparin Sodium (Porcine) (Heparin 5,000 Unit/Ml Vial) 5,000 unit SUBCUT Q12HR [facility] Stop: 11/20/24 08:59 Last Admin: 11/22/23 08:14 Dose: 5,000 unit Linezolid (Zyvox) 600 mg in 300 mls @ 300 mls/hr IV Q12H [facility] Last Admin: 11/22/23 08:58 Dose: 300 mls/hr Ceftriaxone Sodium (Rocephin) 2 gm in 50 mls @ 100 mls/hr IV Q24H [facility] Last Admin: 11/21/23 19:41 Dose: 100 mls/hr Insulin Aspart (Insulin Aspart 300 Units/3 Ml Insuln.Pen) 0 units SUBCUT [facility]; Protocol Stop: 11/20/24 16:29 Last Admin: 11/22/23 08:13 Dose: Not Given Insulin Human Regular (Insulin Regular U-500, Human 1,500 Unit/3 Ml Insuln.Pen) 50 unit SUBCUT BID [facility] Stop: 11/20/24 08:59 Last Admin: 11/22/23 08:16 Dose: 50 unit Levothyroxine Sodium (Levothyroxine 100 Mcg Tablet) 100 mcg PO DAILY.0630 [facility] Stop: 11/20/24 06:29 Last Admin: 11/22/23 05:29 [...] Gel In Packet 1 packet TRANSDERML DAILY [facility] Stop: 11/20/24 08:59 Last Admin: 11/21/23 10:14 Dose: Not Given Tirzepatide [ Mounjaro] 5 Mg/0.5 Ml Pen Injector 5 mg SUBCUT Tu@0900 [facility] Stop: 11/29/24 08:59 Ondansetron HCl (Ondansetron 4 Mg/2 Ml Vial) 4 mg IV-PUSH Q8H PRN PRN Reason: Nausea And Vomiting Stop: 11/19/24 21:02 Pregabalin (Pregabalin 150 Mg Capsule) 150 mg PO BID [facility] Stop: 05/19/24 08:59 Last Admin: 11/22/23 08:14 [...] 600 ml @ 300 mls/hr IV Q12H [facility] Rx# :[id number] Output: Urine 100 / 100 Other: # [...] <Electronically signed by MD Chintan Hernández> 11/22/23 1124 [facility] Work Phone: 1(438) 509-820903-17-2024 Progress note Author Arnol Calloway [facility] November 21, 2023 5:52pm Note Date/Time November 21, 2023 11: 07am [facility] [address] [place] [address] Hospitalist Progress Note Signed Patient: Evans Forte MR#: [id number] : 1970 Acct:[id number] Age/Sex: 53 / M Adm Date: 4 Loc: Room: [address] [place] [address] Type: ADM IN Attending Dr: Arnol Calloway [...] as neuropathy. Follows with Dr. Fonseca/podiatry in [place] but indicates has not had vascular studies [...] 11/21/23 08:00 Anastrozole 1 Mg Tablet PO 03/17/25 08:59 1 mg QAM [facility] Administration Atorvastatin Calcium 20 mg 11/21/23 09:00 11/21/23 08:00 Atorvastatin 20 Mg Tablet PO 11/20/24 08:59 20 mg QAM VNICE Administration Calcitriol 0.25 mcg 11/23/23 09:00 Calcitriol [...] <Electronically signed by Arnol Calloway MD> 11/21/23 9866 [facility] Work Phone: [phone]) 570-287703-17-2024 Consult note Author Yocasta Villalba [facility] November 21, 2023 10:16am Note Date/Time November 21, 2023 10: 16am [facility] [address] [place] [address] Nephrology Consult Note Signed Patient: Evans Forte MR#: [id number] : 1970 Acct:[id number] Age/Sex: 53 / M Adm Date: 4 Loc: Room: [address] [place] [address] Type: ADM IN Attending Dr: Arnol Calloway [...] renal disease on TTS hemodialysis schedule at [facility], insulin-dependent diabetes mellitus, obstructive sleep apnea, [...] system review is negative today [facility] Medical History (Updated 11/21/23 @ 10:12 by [...] 2 Surgical History History of cardiac [place] [facility] History of orthopedic surgery right foot has [...] 1 Mg Tablet) 1 mg PO QAM [facility] Stop: 11/20/24 08:59 Last Admin: 11/21/23 08:00 Dose: 1 mg Atorvastatin Calcium (Atorvastatin 20 Mg Tablet) 20 mg PO QAM [facility] Stop: 11/20/24 08:59 Last Admin: 11/21/23 08:00 Dose: 20 mg Calcitriol (Calcitriol 0.25 Mcg Capsule) 0.25 mcg PO TuThSa@0900 [facility] Stop: 11/22/24 08:59 Calcium Acetate (Calcium Acetate 667 Mg Capsule) 2,668 mg PO AC [facility] Stop: 11/20/24 07:29 Last Admin: 11/21/23 07:54 Dose: 2,668 mg Cyanocobalamin (Cyanocobalamin 1,000 Mcg Tablet) 1,000 mcg PO DAILY [facility] Stop: 11/20/24 08:59 Last Admin: 11/21/23 08:00 Dose: 1,000 mcg Heparin Sodium (Porcine) (Heparin 5,000 Unit/Ml Vial) 5,000 unit SUBCUT Q12HR [facility] Stop: 11/20/24 08:59 Last Admin: 11/21/23 08:00 Dose: 5,000 unit Linezolid (Zyvox) 600 mg in 300 mls @ 300 mls/hr IV Q12H [facility] Last Admin: 11/21/23 09:06 Dose: 300 mls/hr Ceftriaxone Sodium (Rocephin) 2 gm in 50 mls @ 100 mls/hr IV Q24H [facility] Insulin Human Regular (Insulin Regular U-500, Human 1,500 Unit/3 Ml Insuln.Pen) 50 unit SUBCUT BID [facility] Stop: 11/20/24 08:59 Last Admin: 11/21/23 08:00 Dose: 50 unit Levothyroxine Sodium (Levothyroxine 100 Mcg Tablet) 100 mcg PO DAILY.0630 [facility] Stop: 11/20/24 06:29 Last Admin: 11/21/23 05:39 [...] Gel In Packet 1 packet TRANSDERML DAILY [facility] Stop: 11/20/24 08:59 Tirzepatide [ Mounjaro] 5 Mg/0.5 Ml Pen Injector 5 mg SUBCUT Tu@0900 [facility] Stop: 11/29/24 08:59 Ondansetron HCl (Ondansetron 4 [...] Taqueria Reese M.D.11/21/2023 8:08 AM Dictation Location: [place] [address] Any impression(s) listed above is documentation that [...] diabetic nephropathy. Patient has been going to [facility] on TTS for hemodialysis. Last hemodialysis [...] signed by Yocasta Villalba MD> 11/21/23 1016 [facility] Work Phone: [phone]) 491-593303-17-2024 History and physical note Author Buddy Murguia [facility] November 20, 2023 10:57pm Note Date/Time November 20, 2023 10: 38pm [facility] [address] [place] [address] Hospitalist H&P Signed Patient: Evans Forte MR#: [id number] : 1970 Acct:[id number] Age/Sex: 53 / M Adm Date: 4 Loc: Room: [address] [place] [address] Type: ADM IN Attending Dr: Buddy Murguia [...] noted below or in HPI [facility] Medical History (Updated 11/20/23 @ 22:54 by [...] 2 Surgical History History of cardiac catheter[place] [facility] History of orthopedic surgery right foot has [...] F 92 16 127/82 96 Room Air 03/16/24 22:20 11/20/23 22:20 11/20/23 22:20 11/20/23 22:20 [...] 19:00 Lymph % (Auto) N/A 11/20/23 19:00 [place] % (Auto) N/A 11/20/23 19:00 Eos % (Auto) N/A 11/20/23 19:00 Baso % (Auto) N/A 11/20/23 19:00 Nucleat RBC Rel Count N/A 11/20/23 19:00 Neut # (Auto) N/A 11/20/23 19:00 Lymph # (Auto) N/A 11/20/23 19:00 [place] # (Auto) N/A 11/20/23 19:00 Eos # [...] 3 Documented By: Buddy Murguia DO 11/20/23 5842 Signed By: <Electronically signed by Buddy Murguia DO> 11/20/23 9199 [facility] Work Phone: 1(496) 386-615502-07-2024 History of Present illness Narrative* [place], [...] Units tablet Daily RT Continuous Blood Gluc Printer'S Devil (Dexcom G7 Printer'S Devil) device Every 24 hours Continuous Blood Gluc [...] Reaction(s): Unknown Other reaction(s): Unknown Haloperidol Anxiety Hyde Oil GI intolerance Runny nose, watery eyes Wound Dressing Adhesive Rash PAST MEDICAL HISTORY: SOCIAL HISTORY SURGICAL HISTORY: Past Medical History: Diagnosis Date Allergies CKD (chronic kidney disease) Diabetes ([facility]/HCC) Family history of cancer Glaucoma ([facility]) History of being hospitalized 02/05/2017 [facility] - Discharged 02/07/17 Hyperlipidemia ([facility]) Hypertension ([facility]) Hypothyroidism (acquired) ([facility]) GUSTAVO (obstructive sleep apnea) Osteomyelitis of left foot ([facility]) PAD (peripheral artery disease) ([facility]) Pancreatitis x3 Subcutaneous mass of back 03/02/2023 [...] visit: Peritoneal dialysis catheter dysfunction, subsequent encounter ([facility]) Plan is for removal of peritoneal dialysis catheter. I discussed with him the procedure and the risks and potential complications including but not limited to bleeding, infection, pain, possible needfor abdominal exploration if can not remove the catheter easily, possible foreign body retained. Heunderstands and he would like to proceed. No follow-ups on file. documented in this encounterSouth[facility] [id number] Evaluation note* Encounter Date Diagnosis Assessment Notes [...] He understands and agrees with that plan [employer] Other 01-11-2024 History and physical note Author Ramirez Jean [facility] September 16, 2023 1:55pm Note Date/Time September 16, 2023 1 :56pm [facility] [address] [place] [address] Vascular Surgery H&P Signed Patient: Evans Forte MR#: [id number] : 1970 Acct:[id number] Age/Sex: 53 / M Adm Date: 4 Loc: [place] Room: Type: [facility] Attending Dr: Ramirez Jean MD Copies [...] noted below or in HPI [facility] Medical History (Updated 09/16/23 @ 11:02 by [...] (Conc) Insulin Kwikpen) 100 unit subcut QAM 11/23/22 [History Confirmed 09/16/23] pregabalin 50 mg capsule [...] % (Auto) 74.1 Lymph % (Auto) 14.7 [place] % (Auto) 7.3 Eos % (Auto) 3.5 Baso % (Auto) 0.4 Nucleat RBC Rel Count 0.0 Neut # (Auto) 8.4 H Lymph # (Auto) 1.7 [place] # (Auto) 0.8 Eos # (Auto) 0.4 [...] MPV Neut % (Auto) Lymph % (Auto) [place] % (Auto) Eos % (Auto) Baso % (Auto) Nucleat RBC Rel Count Neut # (Auto) Lymph # (Auto) [place] # (Auto) Eos # (Auto) Baso # [...] <Electronically signed by MD Ramirez Jean> 09/16/23 1358 [facility] Work Phone: 1(215) 952-730510-16-2023 Evaluation note* Encounter Date Diagnosis Assessment Notes Treatment Notes Treatment Clinical Notes Jun, Type 2 diabetes mellitus with diabetic chronic kidney disease (ICD-10 - E11.22) [employer] Other 10-11-2023 Evaluation note* Encounter Date Diagnosis [...] your pharmacy, please contact our office at [phone]. Jun, Hypoglycemia (ICD-10 - E16.2) Low blood glucose and diabetes material was published Jun, CKD (chronic kidney disease) stage 5, GFR less than 15 ml/min (ICD-10 - N18.5) Living with chronic kidney disease material was published keep f/u with nephrology Jun, Other Ha was givena dexcom G7 sample [facility]. He stated that he was previously using [...] on his phone by George Vasques RN, [facility]. [facility] [employer] Other 03-31-2023 Evaluation note* Encounter Date Diagnosis [...] advised him to take low potassium diet. [employer] Other 03-04-2023 Progress note Author Yocasta Villalba [facility] November 07, 2022 2:43pm Note Date/Time November 07, 2022 2:43 pm [facility] [address] [place] [address] Nephrology Progress Note Signed Patient: Evans Forte MR#: [id number] : 1970 Acct:[id number] Age/Sex: 52 / M Adm Date: 3 Loc: Room: [address] [place] [address] Type: ADM IN Attending Dr: Chintan Brewster DO Copies to: ~ Date of Service: 11/07/2022 Subjective Subjective Narrative: This is a 52-year-old male patient with a past sickle history of chronic kidney disease stage V from diabetic nephropathy, hypertension, morbid obesity, anemia of renal disease, neuropathy. Patient was referred to the hospital by his check examiner Dr. Waters for hyperkalemia with potassium 5.9 [...] 11/07/22 23:59 23:59 23:59 23:59 Intake Total 1859 / 1859 2260 / 2260 1050 / 1050 Balance 1859 / 1859 2260 / 2260 1050 / 1050 Weight [...] 50 Mg Tablet) 100 mg PO TID [facility] Stop: 11/07/23 13:59 Last Admin: 11/07/22 13:44 Dose: 100 mg Ferric Sodium Gluconate Complex 250 mg/ Sodium Chloride 270 mls @ 135 mls/hr IVQAM [facility] Stop: 11/09/22 09:01 Last Admin: 11/07/22 09:49 Dose: 135 mls/hr Insulin Human Regular (Insulin Regular U-500, Human 1,500 Unit/3 Ml Insuln.Pen) 45 unit SUBCUT DAILY@1700 [facility] Stop: 11/05/23 16:59 Last Admin: 11/06/22 17:13 Dose: 45 unit Insulin Human Regular (Insulin Regular U-500, Human 1,500 Unit/3 Ml Insuln.Pen) 70 unit SUBCUT DAILY@0600 [facility] Stop: 11/05/23 05:59 Last Admin: 11/07/22 05:54 Dose: 70 unit Labetalol HCl (Labetalol 100 Mg/20 Ml Vial) 10 mg IV-PUSH Q10M PRN PRN Reason: Hypertension Stop: 11/04/23 16:31 Last Admin: 11/04/22 21:41 Dose: 10 mg Levothyroxine Sodium (Levothyroxine 100 Mcg Tablet) 100 mcg PO DAILY@0630 [facility] Stop: 11/05/23 06:29 Last Admin: 11/07/22 05:55 Dose: 100 mcg Lorazepam (Lorazepam 2 Mg/Ml Vial) 0.5 mg IV-PUSH Q4H PRN PRN Reason: Agitation Stop: 05/05/23 16:50 Last Admin: 11/06/22 17:11 Dose: 0.5 mg Nifedipine (Nifedipine Er.24hr 90 Mg Tab.Er.24) 90 mg PO DAILY [facility] Stop: 11/05/23 08:59 Last Admin: 11/07/22 08:39 Dose: 90 mg Pregabalin (Pregabalin 50 Mg Capsule) 50 mg PO DAILY [facility] Stop: 05/04/23 08:59 Last Admin: 11/07/22 08:38 [...] signed by Yocasta Villalba MD> 11/07/22 1443 [facility] Work Phone: 1(912) 326-829103-04-2023 Progress note Author Masoud Maria [facility] November 07, 2022 8:40am Note Date/Time November 07, 2022 8:40 am [facility] [address] [place] [address] General Surgery Progress Note Signed Patient: Evans Forte MR#: [id number] : 1970 Acct:[id number] Age/Sex: 52 / M Adm Date: 3 Loc: Room: [address] [place] [address] Type: ADM IN Attending Dr: Chintan Brewster [...] 145 Mg Tablet) 145 mg PO DAILY [facility] Stop: 11/05/23 08:59 Last Admin: 11/05/22 08:48 Dose: 145 mg Ferrous Sulfate (Ferrous Sulfate 324 Mg Tablet.Dr) 324 mg PO DAILY [facility] Stop: 11/05/23 08:59 Last Admin: 11/06/22 10:32 Dose: Not Given Folic Acid (Cyanocobalamin/Fa/Pyridoxine 1 Tab Tablet) 1 tab PO DAILY [facility] Stop: 11/05/23 08:59 Last Admin: 11/06/22 10:32 Dose: Not Given Heparin Sodium (Porcine) (Heparin 5,000 Unit/Ml Vial) 5,000 unit SUBCUT Q8HR [facility] Stop: 11/05/23 13:59 Last Admin: 11/07/22 05:53 Dose: 5,000 unit Hydralazine HCl (Hydralazine 20 Mg/Ml Vial) 10 mg IV-PUSH Q4H PRN PRN Reason: if SBP > 185 Stop: 11/04/23 23:30 Last Admin: 11/04/22 23:40 Dose: 10 mg Hydralazine HCl (Hydralazine 50 Mg Tablet) 50 mg PO TID [facility] Stop: 11/05/23 05:59 Last Admin: 11/06/22 21:32 Dose: 50 mg Sodium Chloride (0.9% Sodium Chloride 500 Ml) 500 mls @ 20 mls/hr IV ONCE ONE Stop: 11/07/22 10:00 Last Admin: 11/06/22 10:37 Dose: 20 mls/hr Ferric Sodium Gluconate Complex 250 mg/ Sodium Chloride 270 mls @ 135 mls/hr IVQAM [facility] Stop: 11/09/22 09:01 Last Infusion: 11/06/22 13:03 Dose: Infused Insulin Human Regular (Insulin Regular U-500, Human 1,500 Unit/3 Ml Insuln.Pen) 45 unit SUBCUT DAILY@1700 [facility] Stop: 11/05/23 16:59 Last Admin: 11/06/22 17:13 Dose: 45 unit Insulin Human Regular (Insulin Regular U-500, Human 1,500 Unit/3 Ml Insuln.Pen) 70 unit SUBCUT DAILY@0600 [facility] Stop: 11/05/23 05:59 Last Admin: 11/07/22 05:54 Dose: 70 unit Labetalol HCl (Labetalol 100 Mg/20 Ml Vial) 10 mg IV-PUSH Q10M PRN PRN Reason: Hypertension Stop: 11/04/23 16:31 Last Admin: 11/04/22 21:41 Dose: 10 mg Levothyroxine Sodium (Levothyroxine 100 Mcg Tablet) 100 mcg PO DAILY@0630 [facility] Stop: 11/05/23 06:29 Last Admin: 11/07/22 05:55 [...] % (Auto) 87.5, Lymph % (Auto) 5.8, [place] % (Auto) 6.5, Eos % (Auto)0.1, Baso % (Auto) 0.1, Nucleat RBC Rel Count 0.1, Neut # (Auto) 10.9 H, Lymph #(Auto) 0.7 L, [place] # (Auto) 0.8, Eos # (Auto) 0.0, [...] % (Auto) 74.7, Lymph % (Auto) 13.3, [place] % (Auto) 9.0, Eos % (Auto) 2.5, Baso % (Auto) 0.5, Nucleat RBC Rel Count 0.1, Neut # (Auto) 10.0 H, Lymph # (Auto) 1.8, [place] # (Auto) 1.2 H, Eos # (Auto) [...] signed by Masoud Maria DO> 11/07/22 0840 [facility] Work Phone: 1(772) [phone] Progress note Author Chintan Brewster [facility] November 06, 2022 5:26pm Note Date/Time November 06, 2022 5:26 pm [facility] [address] [place] [address] Hospitalist Progress Note Signed Patient: Evans Frote MR#: [id number] : 1970 Acct:[id number] Age/Sex: 52 / M Adm Date: 3 Loc: Room: [address] [place] [address] Type: ADM IN Attending Dr: Chintan Brewster [...] Tablet PO 11/05/23 08:59 Not Given DAILY [facility] Heparin Sodium (Porcine) 5,000 unit 11/05/22 14:00 11/06/22 14:15 Heparin 5,000 Unit/Ml Vial SUBCUT 11/05/23 13:59 Not Given Q8HR [facility] Hydralazine HCl 10 mg 11/04/22 23:31 11/04/22 [...] Sodium IV 11/09/22 09:01 Infused Chloride QAM [facility] Infusion Insulin Human Regular 45 unit 11/05/22 17:00 11/06/22 17:13 Insulin Regular U-500, Human 1,500 Unit/3 Ml Insuln.Pen SUBCUT 11/05/23 16:59 45 unit DAILY@1700 [facility] Administration Insulin Human Regular 70 unit 11/05/22 06:00 11/06/22 06:25 Insulin Regular U-500, Human 1,500 Unit/3 Ml Insuln.Pen SUBCUT 11/05/23 05:59 Not Given DAILY@0600 [facility] Insulin Human Regular 0 unit 11/06/22 12:34 [...] <Electronically signed by Chintan Brewster DO> 11/06/22 9086 [facility] Work Phone: [phone] Progress note Author Yocasta Villalba [facility] November 06, 2022 2:57pm Note Date/Time November 06, 2022 2:57 pm [facility] [address] [place] [address] Nephrology Progress Note Signed Patient: Evans Forte MR#: [id number] : 1970 Acct:[id number] Age/Sex: 52 / M Adm Date: 3 Loc: Room: [address] [place] [address] Type: ADM IN Attending Dr: Chintan Brewster DO Copies to: ~ Date of Service: 11/06/2022 Subjective Subjective Narrative: This is a 52-year-old male patient with a past sickle history of chronic kidney disease stage V from diabetic nephropathy, hypertension, morbid obesity, anemia of renal disease, neuropathy. Patient was referred to the hospital by his check examiner Dr. Waters for hyperkalemia with potassium 5.9 [...] 500 Mg Tablet) 500 mg PO DAILY [facility] Stop: 11/05/23 08:59 Last Admin: 11/06/22 10:32 Dose: Not Given Atorvastatin Calcium (Atorvastatin 20 Mg Tablet) 20 mg PO DAILY [facility] Stop: 11/05/23 08:59 Last Admin: 11/06/22 10:32 Dose: Not Given Carvedilol (Carvedilol 25 Mg Tablet) 25 mg PO BID [facility] Stop: 11/04/23 20:59 Last Admin: 11/06/22 09:05 Dose: 25 mg Docusate Sodium (Docusate 100 Mg Capsule) 100 mg PO BID [facility] Stop: 11/06/23 20:59 Droperidol (Droperidol 5 Mg/2 Ml Vial) 1.25 mg IV-PUSH ONCE PRN PRN Reason: Nausea And Vomiting Stop: 11/06/22 16:28 Emollient Ointment (Petrolatum,White 99 Gm Oint...G.) 1 applic TOPICAL DAILY [facility] Stop: 11/05/23 09:59 Last Admin: 11/06/22 09:05 Dose: 1 applic Fenofibrate (Fenofibrate Nanocrystallized 145 Mg Tablet) 145 mg PO DAILY [facility] Stop: 11/05/23 08:59 Last Admin: 11/05/22 08:48 Dose: 145 mg Ferrous Sulfate (Ferrous Sulfate 324 Mg Tablet.Dr) 324 mg PO DAILY [facility] Stop: 11/05/23 08:59 Last Admin: 11/06/22 10:32 Dose: Not Given Folic Acid (Cyanocobalamin/Fa/Pyridoxine 1 Tab Tablet) 1 tab PO DAILY [facility] Stop: 11/05/23 08:59 Last Admin: 11/06/22 10:32 Dose: Not Given Heparin Sodium (Porcine) (Heparin 5,000 Unit/Ml Vial) 5,000 unit SUBCUT Q8HR [facility] Stop: 11/05/23 13:59 Last Admin: 11/06/22 14:15 Dose: Not Given Hydralazine HCl (Hydralazine 20 Mg/Ml Vial) 10 mg IV-PUSH Q4H PRN PRN Reason: if SBP > 185 Stop: 11/04/23 23:30 Last Admin: 11/04/22 23:40 Dose: 10 mg Hydralazine HCl (Hydralazine 50 Mg Tablet) 50 mg PO TID [facility] Stop: 11/05/23 05:59 Last Admin: 11/06/22 10:32 Dose: Not Given Sodium Chloride (0.9% Sodium Chloride 500 Ml) 500 mls @ 20 mls/hr IV ONCE ONE Stop: 11/07/22 10:00 Last Admin: 11/06/22 10:37 Dose: 20 mls/hr Ferric Sodium Gluconate Complex 250 mg/ Sodium Chloride 270 mls @ 135 mls/hr IVQAM [facility] Stop: 11/09/22 09:01 Last Infusion: 11/06/22 13:03 Dose: Infused Insulin Human Regular (Insulin Regular U-500, Human 1,500 Unit/3 Ml Insuln.Pen) 45 unit SUBCUT DAILY@1700 [facility] Stop: 11/05/23 16:59 Last Admin: 11/05/22 18:24 Dose: 45 unit Insulin Human Regular (Insulin Regular U-500, Human 1,500 Unit/3 Ml Insuln.Pen) 70 unit SUBCUT DAILY@0600 [facility] Stop: 11/05/23 05:59 Last Admin: 11/06/22 06:25 [...] 100 Mcg Tablet) 100 mcg PO DAILY@0630 [facility] Stop: 11/05/23 06:29 Last Admin: 11/06/22 06:38 [...] Zirconium Cyclosilicate 5 gm 15 gmPO DAILY [facility] Stop: 11/06/23 10:29 Vitamin A (Vitamin A [...] signed by Yocasta Villalba MD> 11/06/22 1457 [facility] Work Phone: [phone] Progress note Author Chintan Brewster [facility] November 05, 2022 3:55pm Note Date/Time November 05, 2022 3:55 pm [facility] [address] [place] [address] Hospitalist Progress Note Signed Patient: Evans Forte MR#: [id number] : 1970 Acct:[id number] Age/Sex: 52 / M Adm Date: 3 Loc: 4 Room: [address] [place] [address] Type: ADM IN Attending Dr: Chintan Brewster [...] 80 Mg Tablet PO 11/06/23 07:59 DAILY.8A [facility] Heparin Sodium (Porcine) 5,000 unit 11/05/22 14:00 [...] Unit/3 Ml Insuln.Pen SUBCUT 11/05/23 16:59 DAILY@1700 [facility] Insulin Human Regular 70 unit 11/05/22 06:00 [...] <Electronically signed by Chintan Brewster DO> 11/05/22 9835 [facility] Work Phone: [phone] Consult note Author Yocasta Villalba [facility] November 05, 2022 2:39pm Note Date/Time November 05, 2022 2:39 pm [facility] [address] [place] [address] Nephrology Consult Note Signed Patient: Evans Forte MR#: [id number] : 1970 Acct:[id number] Age/Sex: 52 / M Adm Date: 3 Loc: Room: [address] [place] [address] Type: ADM IN Attending Dr: Chintan Brewster [...] was referred to the hospital by his check examiner Dr. Waters for hyperkalemia with potassium 5.9 [...] (Conc) Insulin Kwikpen) 70 unit subcut QAM 11/23/22 [History Confirmed 11/04/22] vitamin A 2,400 mcg [...] 500 Mg Tablet) 500 mg PO DAILY [facility] Stop: 11/05/23 08:59 Last Admin: 11/05/22 08:49 Dose: 500 mg Atorvastatin Calcium (Atorvastatin 20 Mg Tablet) 20 mg PO DAILY [facility] Stop: 11/05/23 08:59 Last Admin: 11/05/22 08:50 Dose: 20 mg Carvedilol (Carvedilol 25 Mg Tablet) 25 mg PO BID [facility] Stop: 11/04/23 20:59 Last Admin: 11/05/22 08:50 Dose: 25 mg Emollient Ointment (Petrolatum,White 99 Gm Oint...G.) 1 applic TOPICAL DAILY [facility] Stop: 11/05/23 09:59 Fenofibrate (Fenofibrate Nanocrystallized 145 Mg Tablet) 145 mg PO DAILY [facility] Stop: 11/05/23 08:59 Last Admin: 11/05/22 08:48 Dose: 145 mg Ferrous Sulfate (Ferrous Sulfate 324 Mg Tablet.) 324 mg PO DAILY [facility] Stop: 11/05/23 08:59 Last Admin: 11/05/22 08:52 Dose: 324 mg Folic Acid (Cyanocobalamin/Fa/Pyridoxine 1 Tab Tablet) 1 tab PO DAILY [facility] Stop: 11/05/23 08:59 Last Admin: 11/05/22 08:48 Dose: 1 tab Heparin Sodium (Porcine) (Heparin 5,000 Unit/Ml Vial) 5,000 unit SUBCUT Q8HR [facility] Stop: 11/05/23 13:59 Hydralazine HCl (Hydralazine 20 Mg/Ml Vial) 10 mg IV-PUSH Q4H PRN PRN Reason: if SBP > 185 Stop: 11/04/23 23:30 Last Admin: 11/04/22 23:40 Dose: 10 mg Hydralazine HCl (Hydralazine 50 Mg Tablet) 50 mg PO TID [facility] Stop: 11/05/23 05:59 Last Admin: 11/05/22 08:52 Dose: 50 mg Insulin Human Regular (Insulin Regular U-500, Human 1,500 Unit/3 Ml Insuln.Pen) 45 unit SUBCUT DAILY@1700 [facility] Stop: 11/05/23 16:59 Insulin Human Regular (Insulin Regular U-500, Human 1,500 Unit/3 Ml Insuln.Pen) 70 unit SUBCUT DAILY@0600 [facility] Stop: 11/05/23 05:59 Last Admin: 11/05/22 08:05 Dose: 70 unit Labetalol HCl (Labetalol 100 Mg/20 Ml Vial) 10 mg IV-PUSH Q10M PRN PRN Reason: Hypertension Stop: 11/04/23 16:31 Last Admin: 11/04/22 21:41 Dose: 10 mg Levothyroxine Sodium (Levothyroxine 100 Mcg Tablet) 100 mcg PO DAILY@0630 [facility] Stop: 11/05/23 06:29 Last Admin: 11/05/22 06:10 Dose: 100 mcg Nifedipine (Nifedipine Er.24hr 90 Mg Tab.Er.24) 90 mg PO DAILY [facility] Stop: 11/05/23 08:59 Last Admin: 11/05/22 08:52 Dose: 90 mg Pregabalin (Pregabalin 50 Mg Capsule) 50 mg PO DAILY [facility] Stop: 05/04/23 08:59 Last Admin: 11/05/22 08:52 Dose: 50 mg Sodium Bicarbonate (Sodium Bicarbonate 650 Mg Tablet) 650 mg PO BID [facility] Stop: 11/05/23 10:29 Last Admin: 11/05/22 12:03 Dose: 650 mg Sodium Chloride (Sodium Chloride 0.9 % 10 Ml Syringe) 0 ml IV-PUSH PRN PRN PRN Reason: Flush Stop: 11/04/23 13:53 Vitamin A (Vitamin A 3,000 Mcg (10,000 Units) Capsule) 3,000 mcg PO DAILY [facility] Stop: 11/05/23 08:59 Last Admin: 11/05/22 08:52 Dose: 3,000 mcg Vitamin D (Cholecalciferol 25 Mcg (1,000 Units) Tablet) 50 mcg PO DAILY [facility] Stop: 11/05/23 08:59 Last Admin: 11/05/22 08:50 Dose: 50 mcg Zinc Gluconate (Zinc Gluconate 50 Mg Tablet) 50 mg PO DAILY [facility] Stop: 11/05/23 08:59 Last Admin: 11/05/22 08:52 [...] Lenore Lockett Jr.OHimanshu11/04/2022 3:50 PM Dictation Location: [place] [address] Any impression(s) listed above is documentation that [...] signed by Yocasta Villalba MD> 11/05/22 1439 [facility] Work Phone: [phone] Consult note Author Flakito High [facility] November 05, 2022 12:31pm Note Date/Time November 05, 2022 12:3 1pm [facility] [address] [place] [address] General Surgery Consult Note Signed Patient: Evans Forte MR#: [id number] : 1970 Acct:[id number] Age/Sex: 52 / M Adm Date: 3 Loc: Room: [address] [place] [address] Type: ADM IN Attending Dr: Chintan Brewster [...] instead of hemodialysis. He has talked his check examiner about this. He is not having any [...] 5,000 Unit/Ml Vial) 5,000 unit SUBCUT Q8HR [facility] Stop: 11/05/23 13:59 Hydralazine HCl (Hydralazine 20 Mg/Ml Vial) 10 mg IV-PUSH Q4H PRN PRN Reason: if SBP > 185 Stop: 11/04/23 23:30 Last Admin: 11/04/22 23:40 Dose: 10 mg Hydralazine HCl (Hydralazine 50 Mg Tablet) 50 mg PO TID [facility] Stop: 11/05/23 05:59 Last Admin: 11/05/22 08:52 Dose: 50 mg Insulin Human Regular (Insulin Regular U-500, Human 1,500 Unit/3 Ml Insuln.Pen) 45 unit SUBCUT DAILY@1700 [facility] Stop: 11/05/23 16:59 Insulin Human Regular (Insulin Regular U-500, Human 1,500 Unit/3 Ml Insuln.Pen) 70 unit SUBCUT DAILY@0600 [facility] Stop: 11/05/23 05:59 Last Admin: 11/05/22 08:05 Dose: 70 unit Labetalol HCl (Labetalol 100 Mg/20 Ml Vial) 10 mg IV-PUSH Q10M PRN PRN Reason: Hypertension Stop: 11/04/23 16:31 Last Admin: 11/04/22 21:41 Dose: 10 mg Levothyroxine Sodium (Levothyroxine 100 Mcg Tablet) 100 mcg PO DAILY@0630 [facility] Stop: 11/05/23 06:29 Last Admin: 11/05/22 06:10 Dose: 100 mcg Nifedipine (Nifedipine Er.24hr 90 Mg Tab.Er.24) 90 mg PO DAILY [facility] Stop: 11/05/23 08:59 Last Admin: 11/05/22 08:52 Dose: 90 mg Pregabalin (Pregabalin 50 Mg Capsule) 50 mg PO DAILY [facility] Stop: 05/04/23 08:59 Last Admin: 11/05/22 08:52 Dose: 50 mg Sodium Bicarbonate (Sodium Bicarbonate 650 Mg Tablet) 650 mg PO BID [facility] Stop: 11/05/23 10:29 Last Admin: 11/05/22 12:03 Dose: 650 mg Sodium Chloride (Sodium Chloride 0.9 % 10 Ml Syringe) 0 ml IV-PUSH PRN PRN PRN Reason: Flush Stop: 11/04/23 13:53 Vitamin A (Vitamin A 3,000 Mcg (10,000 Units) Capsule) 3,000 mcg PO DAILY [facility] Stop: 11/05/23 08:59 Last Admin: 11/05/22 08:52 [...] % (Auto) 72.3, Lymph % (Auto) 14.6, [place] % (Auto) 9.5, Eos % (Auto) 2.8, Baso % (Auto) 0.8, Nucleat RBC Rel Count 0.0, Neut # (Auto) 9.8 H, Lymph # (Auto) 2.0, [place] # (Auto) 1.3 H, Eos # (Auto) [...] % (Auto) 74.8, Lymph % (Auto) 12.4, [place] % (Auto) 9.0, Eos % (Auto) 2.7, Baso % (Auto) 1.1, Nucleat RBC Rel Count 0.0, Neut # (Auto) 9.1 H, Lymph # (Auto) 1.5, [place] # (Auto) 1.1 H, Eos # (Auto) 0.3, Baso # (Auto) 0.1, Monocyte Dist Width 17.32 11/04/22 14:04: Urine Color Yellow, Urine Appearance Clear, Urine pH 5.5, Ur Specific [place] 1.013, Urine Protein 300 H, Urine Glucose [...] signed by DO Flakito High> 11/05/22 1231 [facility] Work Phone: [phone] History and physical note Author Chintan Brewster [facility] November 04, 2022 8:11pm Note Date/Time November 04, 2022 8:11 pm [facility] [address] [place] [address] Hospitalist H&P Signed Patient: Evans Forte MR#: [id number] : 1970 Acct:[id number] Age/Sex: 52 / M Adm Date: 3 Loc: ER Room: Type: [facility] ER Attending Dr: Copies to: DO Delano Dhillon MD Michael R. Frings, ~ HPI DATE OF EXAMINATION: 11/04/22 CHIEF COMPLAINT: Abnormal labs HISTORY OF PRESENT ILLNESS: This patient is a 52-year-old male who presented to the emergency department earlier today with a chief complaint of abnormal labs at the recommendation of his check examiner. He is in preparation for peritoneal dialysis [...] protein. The patient was admitted to the [facility] floor for further evaluation and treatment [...] (Conc) Insulin Kwikpen) 70 unit subcut QAM 11/23/22 [History Confirmed 11/04/22] vitamin A 2,400 mcg [...] % (Auto) 12.4 % (.) 11/04/22 15:11 [place] % (Auto) 9.0 % (.) 11/04/22 15:11 Eos % (Auto) 2.7 % (.) 11/04/22 15:11 Baso % (Auto) 1.1 % (.) 11/04/22 15:11 Nucleat RBC Rel Count 0.0 /100 WBC (0-0.5) 11/04/22 15:11 Neut # (Auto) 9.1 x10E3/uL (1.8-7.7) H 11/04/22 15:11 Lymph # (Auto) 1.5 x10E3/uL (1.00-4.8) 11/04/22 15:11 [place] # (Auto) 1.1 x10E3/uL (0.0-0.8) H 11/04/22 [...] pH 5.5 (5.0-9.0) 11/04/22 14:04 Ur Specific [place] 1.013 (1.001-1.030) 11/04/22 14:04 Urine Protein 300 [...] <Electronically signed by Chintan Brewster DO> 11/04/222010 [facility] Work Phone: [phone] 222-562912-07-2022 Evaluation note* Encounter Date Diagnosis Assessment Notes [...] discussed with 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 He is interested in PD. No need to initiate dialysis now. We will refer to the Dr. Allred once he needed to be initiated on PD. I have encouraged him to lose weight for kidney transplant. Continue follow with continues to [place] [facility]. He is a suitable candidate for preemptive [...] advised him to take low potassium diet. [employer] Other 10-18-2022 Hospital Discharge instructions Additional Instructions Your kidney function is within your usual range. There has been no significant worsening over the last few months. Your blood sugar is okay tonight. It was only 150 here. In terms of overall management, please call Dr. 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 He is interested in PD. No need to initiate dialysis now. We will refer to the Dr. Allred once he needed to be initiated on PD. I have encouraged him to lose weight for kidney transplant. Continue follow with continues to [place] [facility]. May, Hypertensive chronic kidney disease with stage [...] advised him to take low potassium diet. 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 He is interested in PD. I have encouraged him to lose weight for kidney transplant. Continue follow with continues to [facility]. Mar, Hypertensive chronic kidney disease [...] advised him to take low potassium diet. 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 He is interested in PD. I have encouraged him to lose weight for kidney transplant. Continue follow with continues to [place] [facility]. Nov, Hypertensive chronic kidney disease with stage [...] advised him to take low potassium diet. [employer] Other 12-16-2021 NoteHISTORY: Follow up prior CT, [...] and signed by Anibal Calle on 08/21/2021 [facility] Medical SpecialistConsult note Author Flakito High [facility] November 05, 2022 12:31pm Note Date/Time November 05, 2022 12:3 1pm [facility] [address] [place] [address] General Surgery Consult Note Signed Patient: Evans Forte MR#: [id number] : 1970 Acct:[id number] Age/Sex: 52 / M Adm Date: 3 Loc: 4 Room: [address] [place] [address] Type: ADM IN Attending Dr: Chintan Brewster [...] instead of hemodialysis. He has talked his check examiner about this. He is not having any [...] 145 Mg Tablet) 145 mg PO DAILY [facility] Stop: 11/05/23 08:59 Last Admin: 11/05/22 08:48 Dose: 145 mg Ferrous Sulfate (Ferrous Sulfate 324 Mg Tablet.) 324 mg PO DAILY [facility] Stop: 11/05/23 08:59 Last Admin: 11/05/22 08:52 Dose: 324 mg Folic Acid (Cyanocobalamin/Fa/Pyridoxine 1 Tab Tablet) 1 tab PO DAILY [facility] Stop: 11/05/23 08:59 Last Admin: 11/05/22 08:48 Dose: 1 tab Heparin Sodium (Porcine) (Heparin 5,000 Unit/Ml Vial) 5,000 unit SUBCUT Q8HR [facility] Stop: 11/05/23 13:59 Hydralazine HCl (Hydralazine 20 Mg/Ml Vial) 10 mg IV-PUSH Q4H PRN PRN Reason: if SBP > 185 Stop: 11/04/23 23:30 Last Admin: 11/04/22 23:40 Dose: 10 mg Hydralazine HCl (Hydralazine 50 Mg Tablet) 50 mg PO TID [facility] Stop: 11/05/23 05:59 Last Admin: 11/05/22 08:52 Dose: 50 mg Insulin Human Regular (Insulin Regular U-500, Human 1,500 Unit/3 Ml Insuln.Pen) 45 unit SUBCUT DAILY@1700 [facility] Stop: 11/05/23 16:59 Insulin Human Regular (Insulin Regular U-500, Human 1,500 Unit/3 Ml Insuln.Pen) 70 unit SUBCUT DAILY@0600 [facility] Stop: 11/05/23 05:59 Last Admin: 11/05/22 08:05 Dose: 70 unit Labetalol HCl (Labetalol 100 Mg/20 Ml Vial) 10 mg IV-PUSH Q10M PRN PRN Reason: Hypertension Stop: 11/04/23 16:31 Last Admin: 11/04/22 21:41 Dose: 10 mg Levothyroxine Sodium (Levothyroxine 100 Mcg Tablet) 100 mcg PO DAILY@0630 [facility] Stop: 11/05/23 06:29 Last Admin: 11/05/22 06:10 Dose: 100 mcg Nifedipine (Nifedipine Er.24hr 90 Mg Tab.Er.24) 90 mg PO DAILY [facility] Stop: 11/05/23 08:59 Last Admin: 11/05/22 08:52 [...] % (Auto) 72.3, Lymph % (Auto) 14.6, [place] % (Auto) 9.5, Eos % (Auto) 2.8, Baso % (Auto) 0.8, Nucleat RBC Rel Count 0.0, Neut # (Auto) 9.8 H, Lymph # (Auto) 2.0, [place] # (Auto) 1.3 H, Eos # (Auto) [...] % (Auto) 74.8, Lymph % (Auto) 12.4, [place] % (Auto) 9.0, Eos % (Auto) 2.7, Baso % (Auto) 1.1, Nucleat RBC Rel Count 0.0, Neut # (Auto) 9.1 H, Lymph # (Auto) 1.5, [place] # (Auto) 1.1 H, Eos # (Auto) 0.3, Baso # (Auto) 0.1, Monocyte Dist Width 17.32 11/04/22 14:04: Urine Color Yellow, Urine Appearance Clear, Urine pH 5.5, Ur Specific [place] 1.013, Urine Protein 300 H, Urine Glucose [...] signed by DO Flakito High> 11/05/22 1231 [facility] Work Phone: Consult note Author Yocasta Villalba [facility] November 05, 2022 2:39pm Note Date/Time November 05, 2022 2:39 pm [facility] [address] [place] [address] Nephrology Consult Note Signed Patient: Evans Forte MR#: [id number] : 1970 Acct:[id number] Age/Sex: 52 / M Adm Date: 3 Loc: Room: [address] [place] [address] Type: ADM IN Attending Dr: Chintan Brewster [...] was referred to the hospital by his check examiner Dr. Waters for hyperkalemia with potassium 5.9 [...] 500 Mg Tablet) 500 mg PO DAILY [facility] Stop: 11/05/23 08:59 Last Admin: 11/05/22 08:49 Dose: 500 mg Atorvastatin Calcium (Atorvastatin 20 Mg Tablet) 20 mg PO DAILY [facility] Stop: 11/05/23 08:59 Last Admin: 11/05/22 08:50 Dose: 20 mg Carvedilol (Carvedilol 25 Mg Tablet) 25 mg PO BID [facility] Stop: 11/04/23 20:59 Last Admin: 11/05/22 08:50 Dose: 25 mg Emollient Ointment (Petrolatum,White 99 Gm Oint...G.) 1 applic TOPICAL DAILY [facility] Stop: 11/05/23 09:59 Fenofibrate (Fenofibrate Nanocrystallized 145 Mg Tablet) 145 mg PO DAILY [facility] Stop: 11/05/23 08:59 Last Admin: 11/05/22 08:48 Dose: 145 mg Ferrous Sulfate (Ferrous Sulfate 324 Mg Tablet.Dr) 324 mg PO DAILY [facility] Stop: 11/05/23 08:59 Last Admin: 11/05/22 08:52 Dose: 324 mg Folic Acid (Cyanocobalamin/Fa/Pyridoxine 1 Tab Tablet) 1 tab PO DAILY [facility] Stop: 11/05/23 08:59 Last Admin: 11/05/22 08:48 Dose: 1 tab Heparin Sodium (Porcine) (Heparin 5,000 Unit/Ml Vial) 5,000 unit SUBCUT Q8HR [facility] Stop: 11/05/23 13:59 Hydralazine HCl (Hydralazine 20 Mg/Ml Vial) 10 mg IV-PUSH Q4H PRN PRN Reason: if SBP > 185 Stop: 11/04/23 23:30 Last Admin: 11/04/22 23:40 Dose: 10 mg Hydralazine HCl (Hydralazine 50 Mg Tablet) 50 mg PO TID [facility] Stop: 11/05/23 05:59 Last Admin: 11/05/22 08:52 Dose: 50 mg Insulin Human Regular (Insulin Regular U-500, Human 1,500 Unit/3 Ml Insuln.Pen) 45 unit SUBCUT DAILY@1700 [facility] Stop: 11/05/23 16:59 Insulin Human Regular (Insulin Regular U-500, Human 1,500 Unit/3 Ml Insuln.Pen) 70 unit SUBCUT DAILY@0600 [facility] Stop: 11/05/23 05:59 Last Admin: 11/05/22 08:05 Dose: 70 unit Labetalol HCl (Labetalol 100 Mg/20 Ml Vial) 10 mg IV-PUSH Q10M PRN PRN Reason: Hypertension Stop: 11/04/23 16:31 Last Admin: 11/04/22 21:41 Dose: 10 mg Levothyroxine Sodium (Levothyroxine 100 Mcg Tablet) 100 mcg PO DAILY@0630 [facility] Stop: 11/05/23 06:29 Last Admin: 11/05/22 06:10 Dose: 100 mcg Nifedipine (Nifedipine Er.24hr 90 Mg Tab.Er.24) 90 mg PO DAILY [facility] Stop: 11/05/23 08:59 Last Admin: 11/05/22 08:52 Dose: 90 mg Pregabalin (Pregabalin 50 Mg Capsule) 50 mg PO DAILY [facility] Stop: 05/04/23 08:59 Last Admin: 11/05/22 08:52 Dose: 50 mg Sodium Bicarbonate (Sodium Bicarbonate 650 Mg Tablet) 650 mg PO BID [facility] Stop: 11/05/23 10:29 Last Admin: 11/05/22 12:03 Dose: 650 mg Sodium Chloride (Sodium Chloride 0.9 % 10 Ml Syringe) 0 ml IV-PUSH PRN PRN PRN Reason: Flush Stop: 11/04/23 13:53 Vitamin A (Vitamin A 3,000 Mcg (10,000 Units) Capsule) 3,000 mcg PO DAILY [facility] Stop: 11/05/23 08:59 Last Admin: 11/05/22 08:52 Dose: 3,000 mcg Vitamin D (Cholecalciferol 25 Mcg (1,000 Units) Tablet) 50 mcg PO DAILY [facility] Stop: 11/05/23 08:59 Last Admin: 11/05/22 08:50 Dose: 50 mcg Zinc Gluconate (Zinc Gluconate 50 Mg Tablet) 50 mg PO DAILY [facility] Stop: 11/05/23 08:59 Last Admin: 11/05/22 08:52 [...] Lenore Lockett Jr.OHimanshu11/04/2022 3:50 PM Dictation Location: [place] [address] Any impression(s) listed above is documentation that [...] signed by Yocasta Villalba MD> 11/05/22 1439 [facility] Work Phone: Consult note Author Yocasta Villalba [facility] November 21, 2023 10:16am Note Date/Time November 21, 2023 10: 16am [facility] [address] [place] [address] Nephrology Consult Note Signed Patient: Evans Forte MR#: [id number] : 1970 Acct:[id number] Age/Sex: 53 / M Adm Date: 4 Loc: Room: [address] [place] [address] Type: ADM IN Attending Dr: Arnol Calloway [...] renal disease on TTS hemodialysis schedule at [facility], insulin-dependent diabetes mellitus, obstructive sleep apnea, [...] system review is negative today [facility] Medical History (Updated 11/21/23 @ 10:12 by [...] 2 Surgical History History of cardiac [place] [facility] [place] of orthopedic surgery right foot has [...] 1 Mg Tablet) 1 mg PO QAM [facility] Stop: 11/20/24 08:59 Last Admin: 11/21/23 08:00 Dose: 1 mg Atorvastatin Calcium (Atorvastatin 20 Mg Tablet) 20 mg PO QAM [facility] Stop: 11/20/24 08:59 Last Admin: 11/21/23 08:00 Dose: 20 mg Calcitriol (Calcitriol 0.25 Mcg Capsule) 0.25 mcg PO TuThSa@0900 [facility] Stop: 11/22/24 08:59 Calcium Acetate (Calcium Acetate 667 Mg Capsule) 2,668 mg PO AC [facility] Stop: 11/20/24 07:29 Last Admin: 11/21/23 07:54 Dose: 2,668 mg Cyanocobalamin (Cyanocobalamin 1,000 Mcg Tablet) 1,000 mcg PO DAILY [facility] Stop: 11/20/24 08:59 Last Admin: 11/21/23 08:00 Dose: 1,000 mcg Heparin Sodium (Porcine) (Heparin 5,000 Unit/Ml Vial) 5,000 unit SUBCUT Q12HR [facility] Stop: 11/20/24 08:59 Last Admin: 11/21/23 08:00 Dose: 5,000 unit Linezolid (Zyvox) 600 mg in 300 mls @ 300 mls/hr IV Q12H [facility] Last Admin: 11/21/23 09:06 Dose: 300 mls/hr Ceftriaxone Sodium (Rocephin) 2 gm in 50 mls @ 100 mls/hr IV Q24H [facility] Insulin Human Regular (Insulin Regular U-500, Human 1,500 Unit/3 Ml Insuln.Pen) 50 unit SUBCUT BID [facility] Stop: 11/20/24 08:59 Last Admin: 11/21/23 08:00 Dose: 50 unit Levothyroxine Sodium (Levothyroxine 100 Mcg Tablet) 100 mcg PO DAILY.0630 [facility] Stop: 11/20/24 06:29 Last Admin: 11/21/23 05:39 [...] Gel In Packet 1 packet TRANSDERML DAILY [facility] Stop: 11/20/24 08:59 Tirzepatide [ Mounjaro] 5 Mg/0.5 Ml Pen Injector 5 mg SUBCUT Tu@0900 [facility] Stop: 11/29/24 08:59 Ondansetron HCl (Ondansetron 4 Mg/2 Ml Vial) 4 mg IV-PUSH Q8H PRN PRN Reason: Nausea And Vomiting Stop: 11/19/24 21:02 Pregabalin (Pregabalin 150 Mg Capsule) 150 mg PO BID [facility] Stop: 05/19/24 08:59 Last Admin: 11/21/23 08:00 [...] Taqueria Reese M.D.11/21/2023 8:08 AM Dictation Location: [place] [address] Any impression(s) listed above is documentation that [...] diabetic nephropathy. Patient has been going to [facility] on TTS for hemodialysis. Last hemodialysis [...] signed by Yocasta Villalba MD> 11/21/23 1016 [facility] Work Phone: Consult note Author Chintan Hernández [facility] November 22, 2023 11:26am Note Date/Time November 22, 2023 11: 26am [facility] [address] [place] [address] Infect. Disease Consult Note Signed Patient: Evans Forte MR#: [id number] : 1970 Acct:[id number] Age/Sex: 53 / M Adm Date: 4 Loc: Room: [address] [place] [address] Type: ADM IN Attending Dr: Amy Escudero [...] noted below or in HPI [facility] Medical History (Updated 11/22/23 @ 11:24 by [...] 2 Surgical History History of cardiac [place] [facility] History of orthopedic surgery right foot has [...] 1 Mg Tablet) 1 mg PO QAM [facility] Stop: 11/20/24 08:59 Last Admin: 11/22/23 08:14 Dose: 1 mg Atorvastatin Calcium (Atorvastatin 20 Mg Tablet) 20 mg PO QAM [facility] Stop: 11/20/24 08:59 Last Admin: 11/22/23 08:13 Dose: 20 mg Calcitriol (Calcitriol 0.25 Mcg Capsule) 0.25 mcg PO TuThSa@0900 [facility] Stop: 11/22/24 08:59 Calcium Acetate (Calcium Acetate 667 Mg Capsule) 2,668 mg PO AC [facility] Stop: 11/20/24 07:29 Last Admin: 11/22/23 08:13 Dose: 2,668 mg Cyanocobalamin (Cyanocobalamin 1,000 Mcg Tablet) 1,000 mcg PO DAILY [facility] Stop: 11/20/24 08:59 Last Admin: 11/22/23 08:13 Dose: 1,000 mcg Heparin Sodium (Porcine) (Heparin 5,000 Unit/Ml Vial) 5,000 unit SUBCUT Q12HR [facility] Stop: 11/20/24 08:59 Last Admin: 11/22/23 08:14 Dose: 5,000 unit Linezolid (Zyvox) 600 mg in 300 mls @ 300 mls/hr IV Q12H [facility] Last Admin: 11/22/23 08:58 Dose: 300 mls/hr Ceftriaxone Sodium (Rocephin) 2 gm in 50 mls @ 100 mls/hr IV Q24H [facility] Last Admin: 11/21/23 19:41 Dose: 100 mls/hr Insulin Aspart (Insulin Aspart 300 Units/3 Ml Insuln.Pen) 0 units SUBCUT ACHS [facility]; Protocol Stop: 11/20/24 16:29 Last Admin: 11/22/23 08:13 Dose: Not Given Insulin Human Regular (Insulin Regular U-500, Human 1,500 Unit/3 Ml Insuln.Pen) 50 unit SUBCUT BID [facility] Stop: 11/20/24 08:59 Last Admin: 11/22/23 08:16 Dose: 50 unit Levothyroxine Sodium (Levothyroxine 100 Mcg Tablet) 100 mcg PO DAILY.0630 [facility] Stop: 11/20/24 06:29 Last Admin: 11/22/23 05:29 [...] Gel In Packet 1 packet TRANSDERML DAILY [facility] Stop: 11/20/24 08:59 Last Admin: 11/21/23 10:14 Dose: Not Given Tirzepatide [ Mounjaro] 5 Mg/0.5 Ml Pen Injector 5 mg SUBCUT Tu@0900 [facility] Stop: 11/29/24 08:59 Ondansetron HCl (Ondansetron 4 [...] @ 300 mls/hr IV Q12H [facility] Rx# :[id number] Output: Urine 100 / 100 Other: # [...] signed by MD Chintan Hernández> 11/22/23 1126 [facility] Work Phone: Consult note Author Gi Mondragon [facility] November 23, 2023 3:51pm Note Date/Time November 22, 2023 5:3 0pm [facility] [address] [place] [address] Podiatry Consult Note Signed Patient: Evans Forte MR#: [id number] : 1970 Acct:[id number] Age/Sex: 53 / M Adm Date: 4 Loc: Room: [address] [place] [address] Type: ADM IN Attending Dr: Amy Escduero DO Copies to: DO Gi Dhillon DPM [...] heel. 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 Patient states that the ulcerations [...] noted below or in HPI [facility] Medical History (Updated 11/23/23 @ 10:16 by [...] 2 Surgical History History of cardiac catheter[place] [facility] History of orthopedic surgery right foot has [...] 11/22/23 16:00 11/22/23 16:00 11/22/23 16:00 11/22/23 16:11/22/23 16:00 Narrative: General: Patient is seen at [...] <Electronically signed by TIARA Mondragon> 11/23/23 1551 [facility] Work Phone: Discharge summary Author Chintan Brewster [facility] November 07, 2022 4:43pm Note Date/Time November 07, 2022 4:43 pm [facility] [address] [place] [address] Discharge Summary Signed Patient: Evans Forte MR#: [id number] : 1970 Acct:[id number] Age/Sex: 52 / M Adm Date: 3 Loc: Room: [address] [place] [address]: Chintan Brewster DO Copies to: [...] % (Auto) 87.5, Lymph % (Auto) 5.8, [place] % (Auto) 6.5, Eos % (Auto) 0.1, Baso % (Auto) 0.1, Nucleat RBC Rel Count 0.1, Neut # (Auto) 10.9 H, Lymph # (Auto) 0.7 L, [place] # (Auto) 0.8, Eos # (Auto) 0.0, [...] a prescription was provided. follow with your check examiner for training on peritoneal dialysis Follow-up with [...] Patient Ordered By: Chintan Brewster Follow Up: [facility] [Outside] - 11/12/22 10:30 am (Please keep your previously scheduled follow up appointments. 11/12/22 at 10:30am 11/20/22 at 10:30am) Flakito High DO [Active Staff - D.O.] - (Call office on Wednesday to schedule follow-up with Dr. High) Idania Ricketts DO [Primary Care Provider] - 11/16/22 10:00 am ([facility], call office to reschedule if needed. ) Documented By: Chintan Brewster DO 11/07/22 16 39 Signed By: <Electronically signed by Chintan Brewster DO> 11/07/22 1643 [facility] Work Phone: Discharge summary Author Amy Escudero [facility] November 24, 2023 1:40pm Note Date/Time November 23, 2023 5:0 1pm [facility] [address] [place], [place] [id number] Discharge Summary Signed Patient: Evans Forte MR#: [id number] : 1970 Acct:[id number] Age/Sex: 53 / M Adm Date: 4 Loc: Room: [address] [place] [address]: Amy Escudero DO Copies to: [...] history of hypertension, hyperlipidemia, 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 Time Spent [...] % (Auto) 63.3, Lymph % (Auto) 20.6, [place] % (Auto) 9.8, Eos % (Auto) 5.6, Baso % (Auto) 0.7, Nucleat RBC Rel Count 0.0, Neut # (Auto) 4.9, Lymph # (Auto) 1.6, [place] # (Auto) 0.8, Eos # (Auto) 0.4, [...] to schedule an appointment with your established Clarification Operator. HOME HEALTH TO MANAGE: Nursing to eval [...] signed by Amy Escudero DO> 11/24/23 1340 [facility] Work Phone: Evaluation + Plan note No data available for this section [facility] Evaluation noteNo InformationNort [employer] Other Evaluation noteNo assessment information available [facility] Work Phone: Evaluation note* Diagnosis Onset Date Resolution Status Acute hyperkalemia acute Chronic kidney disease acute Hypertension acute [facility] Work Phone: Evaluation note* Diagnosis Onset Date Resolution Status Acute hyperkalemia acute Acute kidney injury superimposed on CKD acute Chronic kidney disease acute CKD (chronic kidney disease) stage 5, GFR less than 15 ml/min acute Hyperkalemia acute Hypertension acute Insulin dependent diabetes mellitus acute Metabolic acidosis acute [id number] chronic [id number] [facility] Work Phone: evaluation note* Diagnosis Onset Date Resolution Status [id number] [facility] Work Phone: evaluation note* Diagnosis Peritoneal dialysis catheter dysfunction, subsequent encounter ([facility])- Primary documented in this encounter [facility]* Diagnosis Onset Date Resolution Status [id number] chronic Dependence on renal dialysis acute [facility] Work Phone: Evaluation note* Diagnosis Onset Date Resolution Status Anemia of renal disease acut e Benign hypertension with end-stage renal disease acute Diabetes acute [id number] acute [id number] acute Edema of right lower extremity acute End stage renal disease acut e Fever acute Hyperparathyroidism acute Hypertension acute Hypomagnesemia acute Insulin dependent diabetes mellitus acute Sepsis acute SIRS (systemic inflammatory response syndrome) acute Type 2 diabetes mellitus wit h diabetic chronic kidney disease acute Ulcer of right foot acute Ulcer of right heel acute Vomiting acute Wound of right foot acute [facility] Work Phone: evaluation note* Diagnosis Onset Date Resolution Status Edema of right lower extremity acute Fever resolved Hypomagnesemia resolved Sepsis resolved SIRS (systemic inflammatory response syndrome) resolved Vomiting resolved [facility] Work Phone: evaluation note* Diagnosis Onset Date Resolution Status Edema of right lower extremity acute Fever resolved Hypomagnesemia resolved Sepsis resolved SIRS (systemic inflammatory response syndrome) resolved Vomiting resolved AV fistula acute End stage renal disease acut e ESRD on hemodialysis acute [facility] Work Phone: Evaluation note* Diagnosis Onset Date Resolution Status Benign hypertension with end-stage renal disease acute Edema of right lower extremity acute Type 2 diabetes mellitus wit h diabetic chronic kidney disease acute Fever resolved Hypomagnesemia resolved Sepsis resolved SIRS (systemic inflammatory response syndrome) resolved Vomiting resolved AV fistula acute End stage renal disease acut e ESRD on hemodialysis acute [facility] Work Phone: evaluation note* Diagnosis Onset [...] on hemodialysis acute ESRD on hemodialysis acute [facility] Work Phone: Evaluation note* Diagnosis Ulcer of right heel and midfoot with fat layer exposed (CMS/HCC)- Primary Type 2 diabetes mellitus with peripheral neuropathy (CMS/HCC) Neuropathy Mononeuritis of unspecified site documented in this encounter [facility] Healthcare[facility]* Diagnosis Obstructive sleep apnea [...] Hx of amputation of lesser toe, left ([facility]) (CMS/HCC) Obstructive sleep apnea syndrome- Primary Obstructive [...] edema, with long-term current use of insulin ([facility]) Chronic kidney disease with end stage renal disease on dialysis due to type 2 diabetes mellitus ([facility]) Dependence on renal dialysis ([facility]) Renal dialysis status Anxiety Anxiety state, unspecified Pure hypercholesterolemia (CMS/[facility]) Pure hypercholesterolemia Long-term insulin use ([facility]) Hx of amputation of lesser toe, left (HCC) ([facility]) Other iron deficiency anemia 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 classified elsewhere ([facility]) Non-pressure chronic ulcer of other part of right foot with unspecified severity ([facility]) Type 2 diabetes mellitus with foot ulcer, with long-term current use of insulin ([facility]) Class 3 severe obesity due to excess calories with serious comorbidity and body mass index (BMI) of 40.0 to 44.9 in adult ([facility]) Type 2 diabetes mellitus with peripheral neuropathy ([facility])- Primary Anxiety Anxiety state, unspecified Ulcer of right heel and midfoot with fat layer exposed ([facility])- Primary Ulcer of right foot, limited to breakdown of skin ([facility]) Type 2 diabetes mellitus with peripheral neuropathy ([facility]) Neuropathy Mononeuritis of unspecified site Type 2 diabetes mellitus with foot ulcer, with long-term current use of insulin ([facility]) documented in this encounter [facility] HealthcareEvaluation note* Diagnosis Obstructive sleep apnea syndrome- Primary Obstructive sleep apnea (adult) (pediatric) Type 2 diabetes with nephropathy ([facility]) Type 2 diabetes mellitus with peripheral neuropathy ([facility]) 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, with long-term current use of insulin ([facility]) Long-term insulin use ([facility]) 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 ([facility] Essential hypertension ([facility]) Unspecified essential hypertension Peripheral vascular disease ([facility]) Unspecified peripheral vascular disease End stage renal disease ([facility]) End stage renal disease Type 2 diabetes mellitus with ESRD (end-stage renal disease) ([facility]) Acquired hypothyroidism ([facility]) Unspecified hypothyroidism Dependence on renal dialysis ([facility]) Renal dialysis status Pure hypercholesterolemia ([facility]) Pure hypercholesterolemia Chronic maxillary sinusitis Class 3 severe obesity due to excess calories with serious comorbidity and body mass index (BMI) of 45.0 to 49.9 in adult ([facility]) Adrenal nodule ([facility]/HCC) Benign neoplasm of adrenal gland Anxiety Anxiety state, unspecified Hx of amputation of lesser toe, left (HCC) ([facility]) Obstructive sleep apnea syndrome- Primary Obstructive sleep apnea (adult) (pediatric) Primary insomnia Persistent disorder of initiating or maintaining sleep 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 ([facility]) Type 2 diabetes mellitus with peripheral neuropathy ([facility] Essential hypertension ([facility]) Unspecified essential hypertension Peripheral vascular disease ([facility]) Unspecified peripheral vascular disease End stage renal disease (CMS/[facility]) End stage renal disease Acquired hypothyroidism ([facility]) Unspecified hypothyroidism Type 2 diabetes mellitus with ESRD (end-stage renal disease) ([facility]) 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, with long-term current use of insulin ([facility]) Chronic kidney disease with end stage renal disease on dialysis due to type 2 diabetes mellitus ([facility]) Dependence on renal dialysis ([facility]) Renal dialysis status Anxiety Anxiety state, unspecified Pure hypercholesterolemia ([facility]) Pure hypercholesterolemia Long-term insulin use ([facility]) Hx of amputation of lesser toe, left (HCC) ([facility]) Other iron deficiency anemia 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 classified elsewhere ([facility]) Non-pressure chronic ulcer of other part of right foot with unspecified severity ([facility]) Type 2 diabetes mellitus with foot ulcer, with long-term current use of insulin ([facility]) Class 3 severe obesity due to excess calories with serious comorbidity and body mass index (BMI) of 40.0 to 44.9 in adult ([facility]) Type 2 diabetes mellitus with peripheral neuropathy ([facility])- Primary Anxiety Anxiety state, unspecified Obstructive sleep apnea syndrome- Primary Obstructive sleep apnea (adult) (pediatric) 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 ([facility]) Type 2 diabetes mellitus with peripheral neuropathy (CMS/HCC) Essential hypertension ([facility]) Unspecified essential hypertension Peripheral vascular disease ([facility] Unspecified peripheral vascular disease End stage renal disease ([facility] End stage renal disease Acquired hypothyroidism ([facility]) Unspecified hypothyroidism Type 2 diabetes mellitus with ESRD (end-stage renal disease) ([facility]) 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, with long-term current use of insulin ([facility]) Chronic kidney disease with end stage renal disease on dialysis due to type 2 diabetes mellitus ([facility]) Anxiety Anxiety state, unspecified Dependence on renal dialysis ([facility]) Renal dialysis status Pure hypercholesterolemia ([facility]/HCC) Pure hypercholesterolemia Long-term insulin use ([facility]) Hx of amputation of lesser toe, left (HCC) ([facility]) Class 3 severe obesity due to excess calories with serious comorbidity and body mass index (BMI) of 40.0 to 44.9 in adult ([facility]) Inguinal adenopathy Enlargement of lymph nodes documented in this encounter [facility]* Diagnosis Ulcer of right heel and midfoot with fat layer exposed ([facility])- Primary Neuropathy Mononeuritis of unspecified site Ulcer of right foot, limited to breakdown of skin ([facility]) Type 2 diabetes mellitus with peripheral neuropathy ([facility]) documented in this encounter [facility]* Diagnosis 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 ([facility]) documented in this encounter [facility]* Diagnosis Ulcer of right heel and midfoot with fat layer exposed ([facility])- Primary Ulcer of right foot, limited to breakdown of skin ([facility]) documented in this encounter [facility]* Diagnosis Type 2 diabetes mellitus with peripheral neuropathy ([facility])- Primary Anxiety Anxiety state, unspecified documented in this encounter [facility]* Diagnosis Neuropathy- Primary Mononeuritis of unspecified site Type 2 diabetes mellitus with peripheral neuropathy ([facility]) documented in this encounter [facility]* Diagnosis Obstructive sleep apnea syndrome- Primary Obstructive sleep apnea (adult) (pediatric) Type 2 diabetes with nephropathy ([facility]) Type 2 diabetes mellitus with peripheral neuropathy ([facility]) 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, with long-term current use of insulin ([facility]) Long-term insulin use ([facility] 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 ([facility] Essential hypertension ([facility] Unspecified essential hypertension Peripheral vascular disease ([facility]) Unspecified peripheral vascular disease End stage renal disease ([facility] End stage renal disease Type 2 diabetes mellitus with ESRD (end-stage renal disease) ([facility]/HCC) Acquired hypothyroidism (CMS/HCC) Unspecified hypothyroidism Dependence on renal dialysis (CMS/HCC) Renal dialysis status Pure hypercholesterolemia (CMS/HCC) Pure hypercholesterolemia Chronic maxillary sinusitis Class 3 severe obesity due to excess calories with serious comorbidity and body mass index (BMI) of 45.0 to 49.9 in adult (CMS/[facility]) Adrenal nodule (CMS/[facility]) Benign neoplasm of adrenal gland Anxiety Anxiety state, unspecified Hx of amputation of lesser toe, left (HCC) (CMS/[facility]) Obstructive sleep apnea syndrome- Primary Obstructive sleep apnea (adult) (pediatric) Primary insomnia Persistent disorder of initiating or maintaining sleep 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 (CMS/[facility]) Type 2 diabetes mellitus with peripheral neuropathy (CMS/[facility]) Essential hypertension ([facility]) Unspecified essential hypertension Peripheral vascular disease ([facility]) Unspecified peripheral vascular disease End stage renal disease ([facility] End stage renal disease Acquired hypothyroidism ([facility]) Unspecified hypothyroidism Type 2 diabetes mellitus with ESRD (end-stage renal disease) ([facility]) 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, with long-term current use of insulin ([facility]) Chronic kidney disease with end stage renal disease on dialysis due to type 2 diabetes mellitus ([facility]) Dependence on renal dialysis ([facility]) Renal dialysis status Anxiety Anxiety state, unspecified Pure hypercholesterolemia (CMS/HCC) Pure hypercholesterolemia Long-term insulin use ([facility]) Hx of amputation of lesser toe, left (HCC) ([facility]) Other iron deficiency anemia 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 classified elsewhere ([facility]) Non-pressure chronic ulcer of other part of right foot with unspecified severity ([facility]) Type 2 diabetes mellitus with foot ulcer, with long-term current use of insulin ([facility]) Class 3 severe obesity due to excess calories with serious comorbidity and body mass index (BMI) of 40.0 to 44.9 in adult ([facility]) Type 2 diabetes mellitus with peripheral neuropathy (CMS/[facility])- Primary Anxiety Anxiety state, unspecified Obstructive sleep apnea syndrome- Primary Obstructive sleep apnea (adult) (pediatric) 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 (CMS/HCC) Type 2 diabetes mellitus with peripheral neuropathy (CMS/HCC) Essential hypertension (CMS/HCC) Unspecified essential hypertension Peripheral vascular disease ([facility]) Unspecified peripheral vascular disease End stage renal disease ([facility]) End stage renal disease Acquired hypothyroidism ([facility]) Unspecified hypothyroidism Type 2 diabetes mellitus with ESRD (end-stage renal disease) ([facility]) 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, with long-term current use of insulin ([facility]) Chronic kidney disease with end stage renal disease on dialysis due to type 2 diabetes mellitus ([facility]) Anxiety Anxiety state, unspecified Dependence on renal dialysis ([facility]) Renal dialysis status Pure hypercholesterolemia ([facility] Pure hypercholesterolemia Long-term insulin use ([facility]) Hx of amputation of lesser toe, left (HCC) ([facility]) Class 3 severe obesity due to excess calories with serious comorbidity and body mass index (BMI) of 40.0 to 44.9 in adult ([facility]) Inguinal adenopathy Enlargement of lymph nodes Chronic venous insufficiency- Primary Unspecified venous (peripheral) insufficiency Lymphedema Other noninfectious lymphedema documented in this encounter [facility]* Diagnosis Obstructive sleep apnea syndrome- Primary Obstructive sleep apnea (adult) (pediatric) Type 2 diabetes with nephropathy ([facility]) Type 2 diabetes mellitus with peripheral neuropathy ([facility]) 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, with long-term current use of insulin ([facility]) Long-term insulin use ([facility]) 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 ([facility] Essential hypertension ([facility] Unspecified essential hypertension Peripheral vascular disease ([facility]) Unspecified peripheral vascular disease End stage renal disease ([facility]) End stage renal disease Type 2 diabetes mellitus with ESRD (end-stage renal disease) ([facility] Acquired hypothyroidism ([facility]) Unspecified hypothyroidism Dependence on renal dialysis ([facility] Renal dialysis status Pure hypercholesterolemia ([facility]) Pure hypercholesterolemia Chronic maxillary sinusitis Class 3 severe obesity due to excess calories with serious comorbidity and body mass index (BMI) of 45.0 to 49.9 in adult ([facility]) Adrenal nodule ([facility]) Benign neoplasm of adrenal gland Anxiety Anxiety state, unspecified Hx of amputation of lesser toe, left (HCC) ([facility]) Obstructive sleep apnea syndrome- Primary Obstructive sleep apnea (adult) (pediatric) Primary insomnia Persistent disorder of initiating or maintaining sleep 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 ([facility]/HCC) Type 2 diabetes mellitus with peripheral neuropathy ([facility] Essential hypertension ([facility] Unspecified essential hypertension Peripheral vascular disease ([facility]) Unspecified peripheral vascular disease End stage renal disease ([facility] End stage renal disease Acquired hypothyroidism ([facility]) Unspecified hypothyroidism Type 2 diabetes mellitus with ESRD (end-stage renal disease) ([facility]) 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, with long-term current use of insulin ([facility]) Chronic kidney disease with end stage renal disease on dialysis due to type 2 diabetes mellitus ([facility]) Dependence on renal dialysis ([facility]) Renal dialysis status Anxiety Anxiety state, unspecified Pure hypercholesterolemia ([facility]) Pure hypercholesterolemia Long-term insulin use ([facility]) Hx of amputation of lesser toe, left ([facility]) ([facility]) Other iron deficiency anemia 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 classified elsewhere ([facility]) Non-pressure chronic ulcer of other part of right foot with unspecified severity ([facility]) Type 2 diabetes mellitus with foot ulcer, with long-term current use of insulin ([facility]) Class 3 severe obesity due to excess calories with serious comorbidity and body mass index (BMI) of 40.0 to 44.9 in adult ([facility]) Type 2 diabetes mellitus with peripheral neuropathy ([facility])- Primary Anxiety Anxiety state, unspecified Obstructive sleep apnea syndrome- Primary Obstructive sleep apnea (adult) (pediatric) 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 ([facility]) Type 2 diabetes mellitus with peripheral neuropathy ([facility] Essential hypertension ([facility] Unspecified essential hypertension Peripheral vascular disease ([facility]) Unspecified peripheral vascular disease End stage renal disease ([facility]) End stage renal disease Acquired hypothyroidism ([facility]) Unspecified hypothyroidism Type 2 diabetes mellitus with ESRD (end-stage renal disease) ([facility]) 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, with long-term current use of insulin ([facility]) Chronic kidney disease with end stage renal disease on dialysis due to type 2 diabetes mellitus ([facility]) Anxiety Anxiety state, unspecified Dependence on renal dialysis ([facility]) Renal dialysis status Pure hypercholesterolemia ([facility]/HCC) Pure hypercholesterolemia Long-term insulin use (CMS/HCC) Hx [...] Type 2 diabetes mellitus with peripheral neuropathy (CMS/[facility]) Neuropathy Mononeuritis of unspecified site documented in this encounter [facility]* Diagnosis Obstructive sleep apnea syndrome- Primary Obstructive sleep apnea (adult) (pediatric) Type 2 diabetes with nephropathy (CMS/HCC) Type 2 diabetes mellitus with peripheral neuropathy ([facility]) 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, with long-term current use of insulin (CMS/HCC) Long-term insulin use ([facility]) 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 [...] edema, with long-term current use of insulin ([facility]) Chronic kidney disease with end stage renal disease on dialysis due to type 2 diabetes mellitus ([facility]) Dependence on renal dialysis ([facility]) Renal dialysis status Anxiety Anxiety state, unspecified Pure hypercholesterolemia ([facility]) Pure hypercholesterolemia Long-term insulin use ([facility]) Hx of amputation of lesser toe, left (HCC) ([facility]) Other iron deficiency anemia 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 classified elsewhere ([facility]) Non-pressure chronic ulcer of other part of right foot with unspecified severity ([facility]) Type 2 diabetes mellitus with foot ulcer, with long-term current use of insulin ([facility]) Class 3 severe obesity due to excess calories with serious comorbidity and body mass index (BMI) of 40.0 to 44.9 in adult ([facility]) Type 2 diabetes mellitus with peripheral neuropathy ([facility])- Primary Anxiety Anxiety state, unspecified Obstructive sleep apnea syndrome- Primary Obstructive sleep apnea (adult) (pediatric) 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 ([facility] Type 2 diabetes mellitus with peripheral neuropathy ([facility] Essential hypertension ([facility] Unspecified essential hypertension Peripheral vascular disease ([facility]) Unspecified peripheral vascular disease End stage renal disease ([facility] End stage renal disease Acquired hypothyroidism ([facility]) Unspecified hypothyroidism Type 2 diabetes mellitus with ESRD (end-stage renal disease) ([facility]) 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, with long-term current use of insulin ([facility]) Chronic kidney disease with end stage renal disease on dialysis due to type 2 diabetes mellitus ([facility]) Anxiety Anxiety state, unspecified Dependence on renal dialysis ([facility]) Renal dialysis status Pure hypercholesterolemia ([facility] Pure hypercholesterolemia Long-term insulin use ([facility]) Hx of amputation of lesser toe, left (HCC) ([facility]) Class 3 severe obesity due to excess calories with serious comorbidity and body mass index (BMI) of 40.0 to 44.9 in adult ([facility]) Inguinal adenopathy Enlargement of lymph nodes Lymphedema- Primary Other noninfectious lymphedema End stage renal disease ([facility]) End stage renal disease Venous stasis dermatitis documented in this encounter [facility] HealthcareEvaluation note* Diagnosis Obstructive sleep apnea syndrome- Primary Obstructive sleep apnea (adult) (pediatric) Type 2 diabetes with nephropathy (CMS/HCC) Type 2 diabetes mellitus with peripheral neuropathy ([facility]/HCC) 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, with long-term current use of insulin (CMS/HCC) Long-term insulin use ([facility]) 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 (CMS/HCC) Essential hypertension (CMS/HCC) Unspecified essential hypertension Peripheral vascular disease (CMS/HCC) Unspecified peripheral vascular disease End stage renal disease (CMS/HCC) End stage renal disease Type 2 diabetes mellitus with ESRD (end-stage renal disease) (CMS/[facility]) Acquired hypothyroidism (CMS/[facility]) Unspecified hypothyroidism Dependence on renal dialysis ([facility]) Renal dialysis status Pure hypercholesterolemia (CMS/[facility]) Pure hypercholesterolemia Chronic maxillary sinusitis Class 3 severe obesity due to excess calories with serious comorbidity and body mass index (BMI) of 45.0 to 49.9 in adult (CMS/[facility]) Adrenal nodule (CMS/HCC) Benign neoplasm of adrenal gland Anxiety Anxiety state, unspecified Hx of amputation of lesser toe, left (HCC) ([facility]) Obstructive sleep apnea syndrome- Primary Obstructive sleep apnea (adult) (pediatric) Primary insomnia Persistent disorder of initiating or maintaining sleep 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 (CMS/HCC) Type 2 diabetes mellitus with peripheral neuropathy (CMS/HCC) Essential hypertension ([facility]/HCC) Unspecified essential hypertension Peripheral vascular disease (CMS/HCC) Unspecified peripheral vascular disease End stage renal disease (CMS/HCC) End stage renal disease Acquired hypothyroidism ([facility]/HCC) Unspecified hypothyroidism Type 2 diabetes mellitus with ESRD (end-stage renal disease) ([facility] [facility]) 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, with long-term current use of insulin (CMS/HCC) Chronic kidney disease with end stage renal disease on dialysis due to type 2 diabetes mellitus (CMS/HCC) Dependence on renal dialysis ([facility]) Renal dialysis status Anxiety Anxiety state, unspecified Pure hypercholesterolemia (CMS/HCC) Pure hypercholesterolemia Long-term insulin use ([facility]) Hx of amputation of lesser toe, left (HCC) ([facility]) Other iron deficiency anemia 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 classified elsewhere ([facility]) Non-pressure chronic ulcer of other part of right foot with unspecified severity ([facility]) Type 2 diabetes mellitus with foot ulcer, with long-term current use of insulin ([facility]) Class 3 severe obesity due to excess calories with serious comorbidity and body mass index (BMI) of 40.0 to 44.9 in adult ([facility]) Type 2 diabetes mellitus with peripheral neuropathy ([facility])- Primary Anxiety Anxiety state, unspecified Obstructive sleep apnea syndrome- Primary Obstructive sleep apnea (adult) (pediatric) 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 ([facility]) Type 2 diabetes mellitus with peripheral neuropathy ([facility] Essential hypertension ([facility]) Unspecified essential hypertension Peripheral vascular disease ([facility]) Unspecified peripheral vascular disease End stage renal disease ([facility]) End stage renal disease Acquired hypothyroidism ([facility]) Unspecified hypothyroidism Type 2 diabetes mellitus with ESRD (end-stage renal disease) ([facility]) 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, with long-term current use of insulin ([facility]) Chronic kidney disease with end stage renal disease on dialysis due to type 2 diabetes mellitus ([facility]) Anxiety Anxiety state, unspecified Dependence on renal dialysis ([facility]) Renal dialysis status Pure hypercholesterolemia ([facility] Pure hypercholesterolemia Long-term insulin use ([facility]) Hx of amputation of lesser toe, left ([facility]) ([facility]) Class 3 severe obesity due to excess calories with serious comorbidity and body mass index (BMI) of 40.0 to 44.9 in adult ([facility]) Inguinal adenopathy Enlargement of lymph nodes Bilious vomiting with nausea- Primary Type 2 diabetes mellitus with peripheral neuropathy ([facility]) documented in this encounter [facility] HealthcareEvaluation note* Diagnosis Obstructive sleep apnea syndrome- Primary Obstructive sleep apnea (adult) (pediatric) Type 2 diabetes with nephropathy ([facility]) Type 2 diabetes mellitus with peripheral neuropathy ([facility]) 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, with long-term current use of insulin ([facility]) Long-term insulin use ([facility]) 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 ([facility] Essential hypertension ([facility]) Unspecified essential hypertension Peripheral vascular disease ([facility]) Unspecified peripheral vascular disease End stage renal disease ([facility]) End stage renal disease Type 2 diabetes mellitus with ESRD (end-stage renal disease) ([facility] Acquired hypothyroidism ([facility]) Unspecified hypothyroidism Dependence on renal dialysis ([facility]) Renal dialysis status Pure hypercholesterolemia ([facility]) Pure hypercholesterolemia Chronic maxillary sinusitis Class 3 severe obesity due to excess calories with serious comorbidity and body mass index (BMI) of 45.0 to 49.9 in adult ([facility]) Adrenal nodule ([facility]) Benign neoplasm of adrenal gland Anxiety Anxiety state, unspecified Hx of amputation of lesser toe, left (HCC) ([facility]) Obstructive sleep apnea syndrome- Primary Obstructive sleep apnea (adult) (pediatric) Primary insomnia Persistent disorder of initiating or maintaining sleep 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 ([facility] Type 2 diabetes mellitus with peripheral neuropathy ([facility] Essential hypertension ([facility]) Unspecified essential hypertension Peripheral vascular disease ([facility]) Unspecified peripheral vascular disease End stage renal disease ([facility]) End stage renal disease Acquired hypothyroidism ([facility]) Unspecified hypothyroidism Type 2 diabetes mellitus with ESRD (end-stage renal disease) ([facility]) 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, with long-term current use of insulin ([facility]) Chronic kidney disease with end stage renal disease on dialysis due to type 2 diabetes mellitus ([facility]) Dependence on renal dialysis ([facility]) Renal dialysis status Anxiety Anxiety state, unspecified Pure hypercholesterolemia ([facility]) Pure hypercholesterolemia Long-term insulin use ([facility]) Hx of amputation of lesser toe, left (HCC) ([facility]) Other iron deficiency anemia 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 classified elsewhere ([facility]) Non-pressure chronic ulcer of other part of right foot with unspecified severity ([facility]) Type 2 diabetes mellitus with foot ulcer, with long-term current use of insulin ([facility]) Class 3 severe obesity due to excess calories with serious comorbidity and body mass index (BMI) of 40.0 to 44.9 in adult ([facility]) Type 2 diabetes mellitus with peripheral neuropathy ([facility])- Primary Anxiety Anxiety state, unspecified Obstructive sleep [...] Hx of amputation of lesser toe, left ([facility]) ([facility]) Class 3 severe obesity due to excess calories with serious comorbidity and body mass index (BMI) of 40.0 to 44.9 in adult ([facility]) Inguinal adenopathy Enlargement of lymph nodes Bilious vomiting with nausea- Primary Type 2 diabetes mellitus with peripheral neuropathy (CMS/HCC) Neuropathy- Primary Mononeuritis of unspecified site Ulcer of right heel and midfoot with fat layer exposed (CMS/HCC) Ulcer of right foot, limited to breakdown of skin (CMS/HCC) Type 2 diabetes mellitus with peripheral neuropathy ([facility]) Chronic kidney disease due to diabetes mellitus ([facility]/HCC) documented in this encounter [facility] HealthcareEvaluation note* Diagnosis Obstructive sleep apnea syndrome- Primary Obstructive sleep apnea (adult) (pediatric) Type 2 diabetes with nephropathy (CMS/HCC) Type 2 diabetes mellitus with peripheral neuropathy ([facility]/HCC) 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, with long-term current use of insulin (CMS/HCC) Long-term insulin use ([facility]/HCC) 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 (CMS/HCC) Essential hypertension (CMS/HCC) Unspecified essential hypertension Peripheral vascular disease (CMS/HCC) Unspecified peripheral vascular disease End stage renal disease (CMS/HCC) End stage renal disease Type 2 diabetes mellitus with ESRD (end-stage renal disease) (CMS/HCC) Acquired hypothyroidism (CMS/HCC) Unspecified hypothyroidism Dependence on renal dialysis (CMS/[facility]) Renal dialysis status Pure hypercholesterolemia ([facility]) Pure hypercholesterolemia Chronic maxillary sinusitis Class 3 severe obesity due to excess calories with serious comorbidity and body mass index (BMI) of 45.0 to 49.9 in adult Adrenal nodule ([facility]) Benign neoplasm of adrenal gland Anxiety Anxiety state, unspecified Hx of amputation of lesser toe, left (HCC) ([facility]) Obstructive sleep apnea syndrome- Primary Obstructive sleep apnea (adult) (pediatric) Primary insomnia Persistent disorder of initiating or maintaining sleep 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 ([facility]) Type 2 diabetes mellitus with peripheral neuropathy ([facility] Essential hypertension ([facility]) Unspecified essential hypertension Peripheral vascular disease ([facility]) Unspecified peripheral vascular disease End stage renal disease ([facility]) End stage renal disease Acquired hypothyroidism ([facility]) Unspecified hypothyroidism Type 2 diabetes mellitus with ESRD (end-stage renal disease) ([facility]) 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, with long-term current use of insulin ([facility]) Chronic kidney disease with end stage renal disease on dialysis due to type 2 diabetes mellitus ([facility]) Dependence on renal dialysis ([facility]) Renal dialysis status Anxiety Anxiety state, unspecified Pure hypercholesterolemia ([facility]) Pure hypercholesterolemia Long-term insulin use ([facility]) Hx of amputation of lesser toe, left (HCC) ([facility]) Other iron deficiency anemia 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 classified elsewhere ([facility]) Non-pressure chronic ulcer of other part of right foot with unspecified severity ([facility]) Type 2 diabetes mellitus with foot ulcer, with long-term current use of insulin ([facility]) Class 3 severe obesity due to excess calories with serious comorbidity and body mass index (BMI) of 40.0 to 44.9 in adult Type 2 diabetes mellitus with peripheral neuropathy ([facility])- Primary Anxiety Anxiety state, unspecified Obstructive sleep apnea syndrome- Primary Obstructive sleep apnea (adult) (pediatric) 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 ([facility]) Type 2 diabetes mellitus with peripheral neuropathy ([facility] Essential hypertension ([facility]) Unspecified essential hypertension Peripheral vascular disease ([facility]) Unspecified peripheral vascular disease End stage renal disease (CMS/[facility]) End stage renal disease Acquired hypothyroidism ([facility]) Unspecified hypothyroidism Type 2 diabetes mellitus with ESRD (end-stage renal disease) ([facility]/HCC) 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, with long-term current use of insulin ([facility]) Chronic kidney disease with end stage renal disease on dialysis due to type 2 diabetes mellitus ([facility]) Anxiety Anxiety state, unspecified Dependence on renal dialysis (CMS/HCC) Renal dialysis status Pure hypercholesterolemia (CMS/HCC) Pure hypercholesterolemia Long-term insulin use ([facility]) Hx of amputation of lesser toe, left (HCC) ([facility]) Class 3 severe obesity due to excess calories with serious comorbidity and body mass index (BMI) of 40.0 to 44.9 in adult Inguinal adenopathy Enlargement of lymph nodes Bilious vomiting with nausea- Primary Type 2 diabetes mellitus with peripheral neuropathy ([facility]) 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 ([facility])- Primary Type 2 diabetes mellitus with peripheral neuropathy ([facility]) Obstructive sleep apnea syndrome Obstructive sleep apnea (adult) (pediatric) Essential hypertension ([facility] Unspecified essential hypertension Peripheral vascular disease ([facility]) Unspecified peripheral vascular disease End stage renal disease ([facility]) End stage renal disease Type 2 diabetes mellitus with foot ulcer, with long-term current use of insulin ([facility]) Acquired hypothyroidism ([facility]) Unspecified hypothyroidism 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, with long-term current use of insulin ([facility]) Class 3 severe obesity due to excess calories with serious comorbidity and body mass index (BMI) of 40.0 to 44.9 in adult Chronic kidney disease with end stage renal disease on dialysis due to type 2 diabetes mellitus ([facility]) Anxiety Anxiety state, unspecified Dependence on renal dialysis ([facility]) Renal dialysis status Pure hypercholesterolemia (CMS/HCC) Pure hypercholesterolemia Long-term insulin use ([facility]) Hx of amputation of lesser toe, left (HCC) ([facility]) documented in this encounter [facility] HealthcareEvaluation note* Diagnosis Idiopathic peripheral neuropathy- Primary Unspecified hereditary and idiopathic peripheral neuropathy End stage renal disease (HCC) End stage renal disease Hyperkalemia Hyperpotassemia Idiopathic peripheral neuropathy Unspecified hereditary and idiopathic peripheral neuropathy [facility] Diagnosis Onset Date Resolution Status Admit Date Diabetic peripheral neuropathy acute February 13, 2025 8:20am Lumbar radiculopathy acute February 13, 2025 8:20am Other chronic pain acute February [id number] 8:20am [facility] Work Phone: Evaluation note* Diagnosis Obstructive [...] anemia 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 classified elsewhere ([facility]) Non-pressure chronic ulcer of other part of right foot with unspecified severity ([facility]) Type 2 diabetes mellitus with foot ulcer, with long-term current use of insulin ([facility]) Class 3 severe obesity due to excess calories with serious comorbidity and body mass index (BMI) of 40.0 to 44.9 in adult ([facility]) Type 2 diabetes mellitus with peripheral neuropathy [...] diabetes mellitus with ESRD (end-stage renal disease) ([facility]) 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, with long-term current use of insulin ([facility]) Chronic kidney disease with end stage renal disease on dialysis due to type 2 diabetes mellitus (HCC) Anxiety Anxiety state, unspecified Dependence on renal dialysis Renal dialysis status Pure hypercholesterolemia Pure hypercholesterolemia Long-term insulin use ([facility]) Hx of amputation of lesser toe, left ([facility]) Class 3 severe obesity due to excess calories with serious comorbidity and body mass index (BMI) of 40.0 to 44.9 in adult ([facility]) Inguinal adenopathy Enlargement of lymph nodes Bilious [...] edema, with long-term current use of insulin ([facility]) Class 3 severe obesity due to excess calories with serious comorbidity and body mass index (BMI) of 40.0 to 44.9 in adult ([facility]) Chronic kidney disease with end stage renal disease on dialysis due to type 2 diabetes mellitus ([facility]) Anxiety Anxiety state, unspecified Dependence on renal dialysis Renal dialysis status Pure hypercholesterolemia Pure hypercholesterolemia Long-term insulin use ([facility]) Hx of amputation of lesser toe, left ([facility]-HCC) 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) documented in this encounter [facility] HealthcareEvaluation note* Diagnosis Spinal stenosis of lumbar region with neurogenic claudication- Primary Diabetic peripheral neuropathy (CMS-HCC) Type II or unspecified type diabetes mellitus with neurological manifestations, not stated as uncontrolled Spinal stenosis of lumbar region with neurogenic claudication- Primary Spinal stenosis of lumbar region with neurogenic claudication [facility] Diagnosis Chronic foot pain, unspecified laterality- Primary [facility] Diagnosis Diabetic peripheral neuropathy (CMS-HCC)- Primary Type II or unspecified type diabetes mellitus with neurological manifestations, not stated as uncontrolled [facility] Author Chintan Brewster [facility] November 04, 2022 8:11pm Note Date/Time November 04, 2022 8:11 pm [facility] [address] [place] [address] Hospitalist H&P Signed Patient: Evans Forte MR#: [id number] : 1970 Acct:[id number] Age/Sex: 52 / M Adm Date: 3 Loc: ER Room: Type: [facility] ER Attending Dr: Copies to: DO Delano Dhillon MD Michael R. Frings, DO~ HPI DATE OF EXAMINATION: 11/04/22 CHIEF COMPLAINT: Abnormal labs HISTORY OF PRESENT ILLNESS: This patient is a 52-year-old male who presented to the emergency department earlier today with a chief complaint of abnormal labs at the recommendation of his check examiner. He is in preparation for peritoneal dialysis [...] protein. The patient was admitted to the Med floor for further evaluation and treatment after [...] % (Auto) 12.4 % (.) 11/04/22 15:11 [place] % (Auto) 9.0 % (.) 11/04/22 15:11 Eos % (Auto) 2.7 % (.) 11/04/22 15:11 Baso % (Auto) 1.1 % (.) 11/04/22 15:11 Nucleat RBC Rel Count 0.0 /100 WBC (0-0.5) 11/04/22 15:11 Neut # (Auto) 9.1 x10E3/uL (1.8-7.7) H 11/04/22 15:11 Lymph # (Auto) 1.5 x10E3/uL (1.00-4.8) 11/04/22 15:11 [place] # (Auto) 1.1 x10E3/uL (0.0-0.8) H 11/04/22 [...] pH 5.5 (5.0-9.0) 11/04/22 14:04 Ur Specific [place] 1.013 (1.001-1.030) 11/04/22 14:04 Urine Protein 300 [...] <Electronically signed by Chintan Brewster DO> 11/04/222010 [facility] Work Phone: History and physical note Author Buddy Murguia [facility] November 20, 2023 10:57pm Note Date/Time November 20, 2023 10: 38pm [facility] [address] [place], [place] [address] Hospitalist H&P Signed Patient: Evans Forte MR#: [id number] : 1970 Acct:[id number] Age/Sex: 53 / M Adm Date: 4 Loc: Room: [address] [place] [address] Type: ADM IN Attending Dr: Buddy Murguia DO Copies to: DO Buddy Dhillon DO~ HPI DATE OF EXAMINATION: 11/20/23 CHIEF COMPLAINT: nauseas HISTORY OF PRESENT ILLNESS: Mr Forte is a 53-year-old male who with a past medical history of hypertension, hyperlipidemia, ESRD on dialysis T, diabetic and insulin-dependent, GUSTAVO, and neuropathy who [...] noted below or in HPI [facility] Medical History (Updated 11/20/23 @ 22:54 by [...] 2 Surgical History History of cardiac catheterization [facility] [place] History of orthopedic surgery right foot has [...] 19:00 Lymph % (Auto) N/A 11/20/23 19:00 [place] % (Auto) N/A 11/20/23 19:00 Eos % (Auto) N/A 11/20/23 19:00 Baso % (Auto) N/A 11/20/23 19:00 Nucleat RBC Rel Count N/A 11/20/23 19:00 Neut # (Auto) N/A 11/20/23 19:00 Lymph # (Auto) N/A 11/20/23 19:00 [place] # (Auto) N/A 11/20/23 19:00 Eos # [...] <Electronically signed by Buddy Murguia, > 11/20/23 8179 [facility] Work Phone: Hisfzrf general Narrative - Reported* Type Description Date [...] above Hospitalization History INFECTION IN LEFT FOOT [employer] Other [employer] general Narrative - Reported* Type Description Date Medical History ANEMIA Medical History STAGE 5 CHRONIC KIDN EY DISEASAE; UNDERGOING WORK UP FOR TRANSPLANT AT [facility] 2022 Medical History HYPERTENSION Medical History HYPERLIPIDEMIA Medical History HYPOTHYROIDISM Medical History PANCREATITIS X2 Medical History 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 Surgical History HEART CATH 09/2018 Surgical History Right foot surgery 12/2018 Surgical History Left foot surgery 2018 Hospitalization History WOUND ON LEG 02/07/17 Hospitalization History see above Hospitalization History INFECTION IN LEFT FOOT [employer] Other [employer] general Narrative - Reported* Type Description Date Medical History ANEMIA Medical History STAGE 5 CHRONIC KIDN EY DISEASAE; UNDERGOING WORK UP FOR TRANSPLANT AT [facility] 2022 Medical History HYPERTENSION Medical History HYPERLIPIDEMIA [...] above Hospitalization History INFECTION IN LEFT FOOT [employer] Other Hospital Discharge instructions Additional Instructions Call your primary doctor later today for follow-up appointment next week You can take trazodone to help you with your sleep as needed, use the Ativan only as needed for anxiety Return for worsening [facility] or [facility] Work Phone: Hospital Discharge instructions Additional Instructions Bananas, rice, applesauce, toast to formed stool Follow-up with nephrology as planned on Wednesday Here if you develop any chest pain, shortness of breath, fevers, chills or any other concerns Trazodone to help you sleep as needed Zofran for nausea as needed Monitor your blood sugarsMercy Hospital Work Phone: Hospital Discharge instructionsAmbulatory Orders* [...] a prescription was provided. follow with your check examiner for training on peritoneal dialysis Follow-up with Dr. High in the office [facility] Work Phone: Hospital Discharge instructions Additional [...] first post-op visit, call the office at [phone] anytime. We have an answering service which will contact the doctor at anytime. -[facility] as scheduled[facility] Work Phone: Hospital Discharge instructions Additional [...] first post-op visit, call the office at [phone] anytime. We have an answering service which will contact the doctor at anytime. -[facility] as scheduledMer[facility] Work Phone: Hospital Discharge instructions Additional Instructions If your symptoms return/worsen or you develop any further concerns or symptoms please see your doctor or return to the emergency department immediately.[facility] Work Phone: Hospital Discharge instructions Additional Instructions Follow-up with your primary care doctor Return to ED for present symptoms or concernsMer[facility] Work Phone: Hospital Discharge instructions Additional [...] sure you are taking medications as prescribed. [facility] Work Phone: Hospital Discharge instructions Additional Instructions Call pain management tomorrow for additional refills Return to ER as neededMer[facility] Hospital Work Phone: Hospital Discharge instructions Additional Instructions Recommend follow-up with pain management or family doctor for further evaluation of your chronic pain.[facility] Work Phone: InstructionsNot on filedocumented in this encounter [facility] SystemProgress note Author Chintan Brewster [facility] November 05, 2022 3:55pm Note Date/Time November 05, 2022 3:55 pm [facility] [address] [place] [address] Hospitalist Progress Note Signed Patient: Evans Forte MR#: [id number] : 1970 Acct:[id number] Age/Sex: 52 / M Adm Date: 3 Loc: 4 Room: [id number] Type: ADM IN Attending Dr: Chintan Brewster [...] 80 Mg Tablet PO 11/06/23 07:59 DAILY.8A [facility] Heparin Sodium (Porcine) 5,000 unit 11/05/22 14:00 [...] Unit/3 Ml Insuln.Pen SUBCUT 11/05/23 16:59 DAILY@1700 [facility] Insulin Human Regular 70 unit 11/05/22 06:00 11/05/22 08:05 Insulin Regular U-500, Human 1,500 Unit/3 Ml Insuln.Pen SUBCUT 11/05/23 05:59 70 unit DAILY@0600 [facility] Administration Labetalol HCl 10 mg 11/04/22 16:32 [...] <Electronically signed by Chintan Brewster DO> 11/05/22 2242 [facility] Work Phone: Progress note Author Yocasta Villalba [facility] November 06, 2022 2:57pm Note Date/Time November 06, 2022 2:57 pm [facility] [address] [place] [address] Nephrology Progress Note Signed Patient: Evans Forte MR#: [id number] : 1970 Acct:[id number] Age/Sex: 52 / M Adm Date: 3 Loc: Room: [address] [place] [address] Type: ADM IN Attending Dr: Chintan Brewster DO Copies to: ~ Date of Service: 11/06/2022 Subjective Subjective Narrative: This is a 52-year-old male patient with a past sickle history of chronic kidney disease stage V from diabetic nephropathy, hypertension, morbid obesity, anemia of renal disease, neuropathy. Patient was referred to the hospital by his check examiner Dr. Waters for hyperkalemia with potassium 5.9 [...] 500 Mg Tablet) 500 mg PO DAILY [facility] Stop: 11/05/23 08:59 Last Admin: 11/06/22 10:32 Dose: Not Given Atorvastatin Calcium (Atorvastatin 20 Mg Tablet) 20 mg PO DAILY [facility] Stop: 11/05/23 08:59 Last Admin: 11/06/22 10:32 Dose: Not Given Carvedilol (Carvedilol 25 Mg Tablet) 25 mg PO BID [facility] Stop: 11/04/23 20:59 Last Admin: 11/06/22 09:05 Dose: 25 mg Docusate Sodium (Docusate 100 Mg Capsule) 100 mg PO BID [facility] Stop: 11/06/23 20:59 Droperidol (Droperidol 5 Mg/2 Ml Vial) 1.25 mg IV-PUSH ONCE PRN PRN Reason: Nausea And Vomiting Stop: 11/06/22 16:28 Emollient Ointment (Petrolatum,White 99 Gm Oint...G.) 1 applic TOPICAL DAILY [facility] Stop: 11/05/23 09:59 Last Admin: 11/06/22 09:05 Dose: 1 applic Fenofibrate (Fenofibrate Nanocrystallized 145 Mg Tablet) 145 mg PO DAILY [facility] Stop: 11/05/23 08:59 Last Admin: 11/05/22 08:48 Dose: 145 mg Ferrous Sulfate (Ferrous Sulfate 324 Mg Tablet.Dr) 324 mg PO DAILY [facility] Stop: 11/05/23 08:59 Last Admin: 11/06/22 10:32 Dose: Not Given Folic Acid (Cyanocobalamin/Fa/Pyridoxine 1 Tab Tablet) 1 tab PO DAILY [facility] Stop: 11/05/23 08:59 Last Admin: 11/06/22 10:32 Dose: Not Given Heparin Sodium (Porcine) (Heparin 5,000 Unit/Ml Vial) 5,000 unit SUBCUT Q8HR [facility] Stop: 11/05/23 13:59 Last Admin: 11/06/22 14:15 Dose: Not Given Hydralazine HCl (Hydralazine 20 Mg/Ml Vial) 10 mg IV-PUSH Q4H PRN PRN Reason: if SBP > 185 Stop: 11/04/23 23:30 Last Admin: 11/04/22 23:40 Dose: 10 mg Hydralazine HCl (Hydralazine 50 Mg Tablet) 50 mg PO TID [facility] Stop: 11/05/23 05:59 Last Admin: 11/06/22 10:32 Dose: Not Given Sodium Chloride (0.9% Sodium Chloride 500 Ml) 500 mls @ 20 mls/hr IV ONCE ONE Stop: 11/07/22 10:00 Last Admin: 11/06/22 10:37 Dose: 20 mls/hr Ferric Sodium Gluconate Complex 250 mg/ Sodium Chloride 270 mls @ 135 mls/hr IVQAM [facility] Stop: 11/09/22 09:01 Last Infusion: 11/06/22 13:03 Dose: Infused Insulin Human Regular (Insulin Regular U-500, Human 1,500 Unit/3 Ml Insuln.Pen) 45 unit SUBCUT DAILY@1700 [facility] Stop: 11/05/23 16:59 Last Admin: 11/05/22 18:24 Dose: 45 unit Insulin Human Regular (Insulin Regular U-500, Human 1,500 Unit/3 Ml Insuln.Pen) 70 unit SUBCUT DAILY@0600 [facility] Stop: 11/05/23 05:59 Last Admin: 11/06/22 06:25 [...] 100 Mcg Tablet) 100 mcg PO DAILY@0630 [facility] Stop: 11/05/23 06:29 Last Admin: 11/06/22 06:38 Dose: Not Given Lidocaine HCl (Lidocaine 1% 20 Ml Vial) 0.1 ml INTRADERMA PREOP PRN PRN Reason: Venipuncture Stop: 11/06/22 15:01 Lidocaine HCl (Lidocaine 1% 20 Ml Vial) 0.1 ml INTRADERMA PREOP PRN PRN Reason: Venipuncture Stop: 11/06/22 18:34 Nifedipine (Nifedipine Er.24hr 90 Mg Tab.Er.24) 90 mg PO DAILY [facility] Stop: 11/05/23 08:59 Last Admin: 11/06/22 10:32 Dose: Not Given Ondansetron HCl (Ondansetron 4 Mg/2 Ml Vial) 4 mg IV-PUSH ONCE PRN PRN Reason: Nausea/Vomiting Stop: 11/06/22 16:28 Pregabalin (Pregabalin 50 Mg Capsule) 50 mg PO DAILY [facility] Stop: 05/04/23 08:59 Last Admin: 11/06/22 10:32 Dose: Not Given Sodium Bicarbonate (Sodium Bicarbonate 650 Mg Tablet) 1,300 mg PO BID [facility] Stop: 11/05/23 10:29 Last Admin: 11/06/22 10:32 Dose: Not Given Sodium Chloride (Sodium Chloride 0.9 % 10 Ml Syringe) 0 ml IV-PUSH PRN PRN PRN Reason: Flush Stop: 11/04/23 13:53 Sodium Zirconium Cyclosilicate 10 gm/ Sodium Zirconium Cyclosilicate 5 gm 15 gmPO DAILY [facility] Stop: 11/06/23 10:29 Vitamin A (Vitamin A 3,000 Mcg (10,000 Units) Capsule) 3,000 mcg PO DAILY [facility] Stop: 11/05/23 08:59 Last Admin: 11/06/22 10:32 [...] <Electronically signed by Yocasta Villalba MD> 11/06/22 9529 [facility] Work Phone: Progress note Author Chintan Brewster [facility] November 06, 2022 5:26pm Note Date/Time November 06, 2022 5:26 pm [facility] [address] [place] [address] Hospitalist Progress Note Signed Patient: Evans Forte MR#: [id number] : 1970 Acct:[id number] Age/Sex: 52 / M Adm Date: 3 Loc: Room: [address] [place] [address] Type: ADM IN Attending Dr: Chintan Brewster [...] Tablet PO 11/05/23 08:59 Not Given DAILY [facility] Heparin Sodium (Porcine) 5,000 unit 11/05/22 14:00 [...] Sodium IV 11/09/22 09:01 Infused Chloride QAM [facility] Infusion Insulin Human Regular 45 unit 11/05/22 17:00 11/06/22 17:13 Insulin Regular U-500, Human 1,500 Unit/3 Ml Insuln.Pen SUBCUT 11/05/23 16:59 45 unit DAILY@1700 [facility] Administration Insulin Human Regular 70 unit 11/05/22 06:00 11/06/22 06:25 Insulin Regular U-500, Human 1,500 Unit/3 Ml Insuln.Pen SUBCUT 11/05/23 05:59 Not Given DAILY@0600 [facility] Insulin Human Regular 0 unit 11/06/22 12:34 [...] <Electronically signed by Chintan Brewster DO> 11/06/22 1406 [facility] Work Phone: Progress note Author Masoud Maria [facility] November 07, 2022 8:40am Note Date/Time November 07, 2022 8:40 am [facility] [address] [place] [address] General Surgery Progress Note Signed Patient: Evans Forte MR#: [id number] : 1970 Acct:[id number] Age/Sex: 52 / M Adm Date: 3 Loc: Room: [address] [place] [address] Type: ADM IN Attending Dr: Chintan Brewster [...] 20 Mg Tablet) 20 mg PO DAILY [facility] Stop: 11/05/23 08:59 Last Admin: 11/06/22 10:32 Dose: Not Given Carvedilol (Carvedilol 25 Mg Tablet) 25 mg PO BID [facility] Stop: 11/04/23 20:59 Last Admin: 11/06/22 21:32 Dose: 25 mg Docusate Sodium (Docusate 100 Mg Capsule) 100 mg PO BID [facility] Stop: 11/06/23 20:59 Last Admin: 11/06/22 21:32 Dose: Not Given Emollient Ointment (Petrolatum,White 99 Gm Oint...G.) 1 applic TOPICAL DAILY [facility] Stop: 11/05/23 09:59 Last Admin: 11/07/22 05:55 Dose: 1 applic Fenofibrate (Fenofibrate Nanocrystallized 145 Mg Tablet) 145 mg PO DAILY [facility] Stop: 11/05/23 08:59 Last Admin: 11/05/22 08:48 Dose: 145 mg Ferrous Sulfate (Ferrous Sulfate 324 Mg Tablet.Dr) 324 mg PO DAILY [facility] Stop: 11/05/23 08:59 Last Admin: 11/06/22 10:32 Dose: Not Given Folic Acid (Cyanocobalamin/Fa/Pyridoxine 1 Tab Tablet) 1 tab PO DAILY [facility] Stop: 11/05/23 08:59 Last Admin: 11/06/22 10:32 Dose: Not Given Heparin Sodium (Porcine) (Heparin 5,000 Unit/Ml Vial) 5,000 unit SUBCUT Q8HR [facility] Stop: 11/05/23 13:59 Last Admin: 11/07/22 05:53 Dose: 5,000 unit Hydralazine HCl (Hydralazine 20 Mg/Ml Vial) 10 mg IV-PUSH Q4H PRN PRN Reason: if SBP > 185 Stop: 11/04/23 23:30 Last Admin: 11/04/22 23:40 Dose: 10 mg Hydralazine HCl (Hydralazine 50 Mg Tablet) 50 mg PO TID [facility] Stop: 11/05/23 05:59 Last Admin: 11/06/22 21:32 Dose: 50 mg Sodium Chloride (0.9% Sodium Chloride 500 Ml) 500 mls @ 20 mls/hr IV ONCE ONE Stop: 11/07/22 10:00 Last Admin: 11/06/22 10:37 Dose: 20 mls/hr Ferric Sodium Gluconate Complex 250 mg/ Sodium Chloride 270 mls @ 135 mls/hr IVQAM [facility] Stop: 11/09/22 09:01 Last Infusion: 11/06/22 13:03 Dose: Infused Insulin Human Regular (Insulin Regular U-500, Human 1,500 Unit/3 Ml Insuln.Pen) 45 unit SUBCUT DAILY@1700 [facility] Stop: 11/05/23 16:59 Last Admin: 11/06/22 17:13 Dose: 45 unit Insulin Human Regular (Insulin Regular U-500, Human 1,500 Unit/3 Ml Insuln.Pen) 70 unit SUBCUT DAILY@0600 [facility] Stop: 11/05/23 05:59 Last Admin: 11/07/22 05:54 Dose: 70 unit Labetalol HCl (Labetalol 100 Mg/20 Ml Vial) 10 mg IV-PUSH Q10M PRN PRN Reason: Hypertension Stop: 11/04/23 16:31 Last Admin: 11/04/22 21:41 Dose: 10 mg Levothyroxine Sodium (Levothyroxine 100 Mcg Tablet) 100 mcg PO DAILY@0630 [facility] Stop: 11/05/23 06:29 Last Admin: 11/07/22 05:55 Dose: 100 mcg Lorazepam (Lorazepam 2 Mg/Ml Vial) 0.5 mg IV-PUSH Q4H PRN PRN Reason: Agitation Stop: 05/05/23 16:50 Last Admin: 11/06/22 17:11 Dose: 0.5 mg Nifedipine (Nifedipine Er.24hr 90 Mg Tab.Er.24) 90 mg PO DAILY [facility] Stop: 11/05/23 08:59 Last Admin: 11/06/22 10:32 Dose: Not Given Pregabalin (Pregabalin 50 Mg Capsule) 50 mg PO DAILY [facility] Stop: 05/04/23 08:59 Last Admin: 11/06/22 10:32 Dose: Not Given Sodium Bicarbonate (Sodium Bicarbonate 650 Mg Tablet) 1,300 mg PO BID [facility] Stop: 11/05/23 10:29 Last Admin: 11/06/22 21:32 [...] % (Auto) 87.5, Lymph % (Auto) 5.8, [place] % (Auto) 6.5, Eos % (Auto)0.1, Baso % (Auto) 0.1, Nucleat RBC Rel Count 0.1, Neut # (Auto) 10.9 H, Lymph #(Auto) 0.7 L, [place] # (Auto) 0.8, Eos # (Auto) 0.0, [...] % (Auto) 74.7, Lymph % (Auto) 13.3, [place] % (Auto) 9.0, Eos % (Auto) 2.5, Baso % (Auto) 0.5, Nucleat RBC Rel Count 0.1, Neut # (Auto) 10.0 H, Lymph # (Auto) 1.8, [place] # (Auto) 1.2 H, Eos # (Auto) [...] signed by Masoud Maria DO> 11/07/22 0840 [facility] Work Phone: Progress note Author Yocasta Villalba [facility] November 07, 2022 2:43pm Note Date/Time November 07, 2022 2:43 pm [facility] [address] [place] [address] Nephrology Progress Note Signed Patient: Evans Forte MR#: [id number] : 1970 Acct:[id number] Age/Sex: 52 / M Adm Date: 3 Loc: Room: [address] [place] [address] Type: ADM IN Attending Dr: Chintan Brewster DO Copies to: ~ Date of Service: 11/07/2022 Subjective Subjective Narrative: This is a 52-year-old male patient with a past sickle history of chronic kidney disease stage V from diabetic nephropathy, hypertension, morbid obesity, anemia of renal disease, neuropathy. Patient was referred to the hospital by his check examiner Dr. Waters for hyperkalemia with potassium 5.9 [...] 500 Mg Tablet) 500 mg PO DAILY [facility] Stop: 11/05/23 08:59 Last Admin: 11/07/22 08:38 Dose: 500 mg Atorvastatin Calcium (Atorvastatin 20 Mg Tablet) 20 mg PO DAILY [facility] Stop: 11/05/23 08:59 Last Admin: 11/07/22 08:37 Dose: 20 mg Carvedilol (Carvedilol 25 Mg Tablet) 25 mg PO BID [facility] Stop: 11/04/23 20:59 Last Admin: 11/07/22 08:38 Dose: 25 mg Docusate Sodium (Docusate 100 Mg Capsule) 100 mg PO BID [facility] Stop: 11/06/23 20:59 Last Admin: 11/07/22 08:40 [...] 5,000 Unit/Ml Vial) 5,000 unit SUBCUT Q8HR [facility] Stop: 11/05/23 13:59 Last Admin: 11/07/22 13:45 Dose: 5,000 unit Hydralazine HCl (Hydralazine 20 Mg/Ml Vial) 10 mg IV-PUSH Q4H PRN PRN Reason: if SBP > 185 Stop: 11/04/23 23:30 Last Admin: 11/07/22 12:13 Dose: 10 mg Hydralazine HCl (Hydralazine 50 Mg Tablet) 100 mg PO TID [facility] Stop: 11/07/23 13:59 Last Admin: 11/07/22 13:44 Dose: 100 mg Ferric Sodium Gluconate Complex 250 mg/ Sodium Chloride 270 mls @ 135 mls/hr IVQAM [facility] Stop: 11/09/22 09:01 Last Admin: 11/07/22 09:49 Dose: 135 mls/hr Insulin Human Regular (Insulin Regular U-500, Human 1,500 Unit/3 Ml Insuln.Pen) 45 unit SUBCUT DAILY@1700 [facility] Stop: 11/05/23 16:59 Last Admin: 11/06/22 17:13 Dose: 45 unit Insulin Human Regular (Insulin Regular U-500, Human 1,500 Unit/3 Ml Insuln.Pen) 70 unit SUBCUT DAILY@0600 [facility] Stop: 11/05/23 05:59 Last Admin: 11/07/22 05:54 [...] <Electronically signed by Yocasta Villalba MD> 11/07/22 144 [facility] Work Phone: Progress note Author Arnol Calloway [facility] November 21, 2023 5:52pm Note Date/Time November 21, 2023 11: 07am [facility] [address] [place] [address] Hospitalist Progress Note Signed Patient: Evans Forte MR#: [id number] : 1970 Acct:[id number] Age/Sex: 53 / M Adm Date: 4 Loc: Room: [address] [place] [address] Type: ADM IN Attending Dr: Arnol Calloway [...] as neuropathy. Follows with Dr. Fonseca/podiatry in [place] but indicates has not had vascular studies [...] TRANSDERML 11/20/24 08:59 Not Given Packet DAILY [facility] Tirzepatide [ 5 mg 11/30/23 09:00 Mounjaro] 5 Mg/0.5 SUBCUT 11/29/24 08:59 Ml Pen Injector Tu@0900 [facility] Ondansetron HCl 4 mg 11/20/23 21:03 Ondansetron 4 Mg/2 Ml Vial IV-PUSH 11/19/24 21:02 Q8H PRN Nausea And Vomiting Pregabalin 150 mg 11/21/23 09:00 11/21/23 08:00 Pregabalin 150 Mg Capsule PO 05/19/24 08:59 150 mg BID [facility] Administration Sodium Chloride 0 ml 11/20/23 18:44 03/16/24 19:10 Sodium Chloride 0.9 % 10 Ml [...] signed by Arnol Calloway MD> 11/21/23 1752 [facility] Work Phone: Progress note Author Amy Escudero [facility] November 22, 2023 12:45pm Note Date/Time November 22, 2023 10: 37am [facility] [address] [place] [address] Hospitalist Progress Note Signed Patient: Evans Forte MR#: [id number] : 1970 Acct:[id number] Age/Sex: 53 / M Adm Date: 4 Loc: Room: [address] [place] [address] Type: ADM IN Attending Dr: Amy Escudero [...] Insuln.Pen SUBCUT 11/20/24 16:29 Not Given ACHS [facility] Protocol Insulin Human Regular 50 unit 11/21/23 [...] TRANSDERML 11/20/24 08:59 Not Given Packet DAILY [facility] Tirzepatide [ 5 mg 11/30/23 09:00 Mounjaro] 5 Mg/0.5 SUBCUT 11/29/24 08:59 Ml Pen Injector Tu@0900 [facility] Ondansetron HCl 4 mg 11/20/23 21:03 Ondansetron [...] signed by Amy Escudero DO> 11/22/23 1245 [facility] Work Phone: Progress note Author Ada Uriostegui [facility] November 22, 2023 12:53pm Note Date/Time November 22, 2023 12: 53pm [facility] [address] [place] [address] Nephrology Progress Note Signed Patient: Evans Forte MR#: [id number] : 1970 Acct:[id number] Age/Sex: 53 / M Adm Date: 4 Loc: Room: [address] [place] [address] Type: ADM IN Attending Dr: Amy Escudero DO Copies to: ~ Date of Service: 11/22/2023 Subjective Subjective Narrative: This is a 53-year-old male patient with a past medical history of hypertension, hyperlipidemia, end-stage renal disease on TTS hemodialysis schedule at [facility], insulin-dependent diabetes mellitus, obstructive sleep apnea, [...] Skin: No rashes , warm to touch 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,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, following simple command Musculoskeletal: No joint [...] 1 Mg Tablet) 1 mg PO QAM [facility] Stop: 11/20/24 08:59 Last Admin: 11/22/23 08:14 Dose: 1 mg Atorvastatin Calcium (Atorvastatin 20 Mg Tablet) 20 mg PO QAM [facility] Stop: 11/20/24 08:59 Last Admin: 11/22/23 08:13 Dose: 20 mg Calcitriol (Calcitriol 0.25 Mcg Capsule) 0.25 mcg PO TuThSa@0900 [facility] Stop: 11/22/24 08:59 Calcium Acetate (Calcium Acetate 667 Mg Capsule) 2,668 mg PO AC [facility] Stop: 11/20/24 07:29 Last Admin: 11/22/23 11:21 Dose: 2,668 mg Carvedilol (Carvedilol 6.25 Mg Tablet) 6.25 mg PO BID [facility] Stop: 11/21/24 12:19 Cyanocobalamin (Cyanocobalamin 1,000 Mcg Tablet) 1,000 mcg PO DAILY [facility] Stop: 11/20/24 08:59 Last Admin: 11/22/23 08:13 Dose: 1,000 mcg Heparin Sodium (Porcine) (Heparin 5,000 Unit/Ml Vial) 5,000 unit SUBCUT Q12HR [facility] Stop: 11/20/24 08:59 Last Admin: 11/22/23 08:14 Dose: 5,000 unit Linezolid (Zyvox) 600 mg in 300 mls @ 300 mls/hr IV Q12H [facility] Last Admin: 11/22/23 08:58 Dose: 300 mls/hr Ceftriaxone Sodium (Rocephin) 2 gm in 50 mls @ 100 mls/hr IV Q24H [facility] Last Admin: 11/21/23 19:41 Dose: 100 mls/hr Insulin Aspart (Insulin Aspart 300 Units/3 Ml Insuln.Pen) 0 units SUBCUT ACHS [facility]; Protocol Stop: 11/20/24 16:29 Last Admin: 11/22/23 11:22 Dose: 2 units Insulin Human Regular (Insulin Regular U-500, Human 1,500 Unit/3 Ml Insuln.Pen) 50 unit SUBCUT BID [facility] Stop: 11/20/24 08:59 Last Admin: 11/22/23 08:16 Dose: 50 unit Levothyroxine Sodium (Levothyroxine 100 Mcg Tablet) 100 mcg PO DAILY.0630 [facility] Stop: 11/20/24 06:29 Last Admin: 11/22/23 05:29 [...] Gel In Packet 1 packet TRANSDERML DAILY [facility] Stop: 11/20/24 08:59 Last Admin: 11/22/23 11:21 Dose: Not Given Tirzepatide [ Mounjaro] 5 Mg/0.5 Ml Pen Injector 5 mg SUBCUT Tu@0900 [facility] Stop: 11/29/24 08:59 Ondansetron HCl (Ondansetron 4 [...] Taqueria Reese M.D.11/21/2023 4:39 PM Dictation Location: [address] 11/22/23 07:00 IMPRESSION: NO HEMODYNAMICALLY SIGNIFICANT PERIPHERAL VASCULAR OCCLUSIVE DISEASE AT REST IN EITHER LOWER EXTREMITY. Impression dictated by: Ramirez Jean M.D.11/22/2023 10:09 AM Dictation Location: [place] [address] Any impression(s) listed above is documentation that [...] diabetic nephropathy. Patient has been going to [facility] on TTS for hemodialysis. Last hemodialysis [...] <Electronically signed by Ada Uriostegui MD> 11/22/23 7197 [facility] Work Phone: Progress note Author Ada Uriostegui [facility] November 23, 2023 12:09pm Note Date/Time November 23, 2023 10: 34am [facility] EN[facility] [address] [place] [address] Nephrology Progress Note Signed Patient: Evans Forte MR#: [id number] : 1970 Acct:[id number] Age/Sex: 53 / M Adm Date: 4 Loc: 3T Room: [address] [place] [address] Type: ADM IN Attending Dr: Amy Escudero DO Copies to: ~ Date of Service: 11/23/2023 Subjective Subjective Narrative: This is a 53-year-old male patient with a past medical history of hypertension, hyperlipidemia, end-stage renal disease on TTS hemodialysis schedule at [facility], insulin-dependent diabetes mellitus, obstructive sleep apnea, [...] Skin: No rashes , warm to touch 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,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, following simple command Musculoskeletal: No joint swelling or limitation of movement Psychiatric: Cooperative, normal mood and affect Objective Intake and Output I&O: Intake & Output 11/20/23 11/21/23 11/22/2311/22/24 23:59 23:59 23:59 23:59 Intake Total 1050 [...] (Anastrozole 1 Mg Tablet) [facility] [place] Stop: 11/20/24 08:59 Last Admin: 11/22/23 08:14 Dose: 1 mg Atorvastatin Calcium (Atorvastatin 20 Mg Tablet) 20 mg PO QAM [facility] Stop: 11/20/24 08:59 Last Admin: 11/22/23 08:13 Dose: 20 mg Calcitriol (Calcitriol 0.25 Mcg Capsule) 0.25 mcg PO TuThSa@0900 [facility] Stop: 11/22/24 08:59 Calcium Acetate (Calcium Acetate 667 Mg Capsule) 2,668 mg PO AC [facility] Stop: 11/20/24 07:29 Last Admin: 11/23/23 08:52 Dose: Not Given Carvedilol (Carvedilol 6.25 Mg Tablet) 6.25 mg PO BID [facility] Stop: 11/21/24 13:29 Last Admin: 11/23/23 08:53 Dose: Not Given Cyanocobalamin (Cyanocobalamin 1,000 Mcg Tablet) 1,000 mcg PO DAILY [facility] Stop: 11/20/24 08:59 Last Admin: 11/22/23 08:13 Dose: 1,000 mcg Darbepoetin Zechariah (Darbepoetin Zechariah In Polysorbat 25 Mcg/Ml Vial) 25 mcg IV-PUSHTu@0930 [facility]; Protocol Stop: 11/22/24 09:29 Furosemide (Furosemide 80 Mg Tablet) 80 mg PO BID@0800,1600 [facility] Stop: 11/21/24 15:59 Last Admin: 11/23/23 08:52 Dose: Not Given Heparin Sodium (Porcine) (Heparin 5,000 Unit/Ml Vial) 5,000 unit SUBCUT Q12HR [facility] Stop: 11/20/24 08:59 Last Admin: 11/23/23 08:53 [...] 300 mls @ 300 mls/hr IV Q12H [facility] Last Admin: 11/22/23 21:02 Dose: 300 mls/hr Ceftriaxone Sodium (Rocephin) 2 gm in 50 mls @ 100 mls/hr IV Q24H [facility] Last Admin: 11/22/23 19:25 Dose: 100 mls/hr Sodium Chloride (0.9% Sodium Chloride 1,000 Ml) 1,000 mls @ 0 mls/hr MISCELLANE.Q0M PRN PRN Reason: Dialysis Stop: 11/22/24 09:19 Last Infusion: 11/23/23 09:43 Dose: Infused Insulin Aspart (Insulin Aspart 300 Units/3 Ml Insuln.Pen) 0 units SUBCUT ACHS [facility]; Protocol Stop: 11/20/24 16:29 Last Admin: 11/23/23 08:52 Dose: Not Given Insulin Human Regular (Insulin Regular U-500, Human 1,500 Unit/3 Ml Insuln.Pen) 50 unit SUBCUT BID [facility] Stop: 11/20/24 08:59 Last Admin: 11/23/23 08:53 Dose: Not Given Levothyroxine Sodium (Levothyroxine 100 Mcg Tablet) 100 mcg PO DAILY.0630 [facility] Stop: 11/20/24 06:29 Last Admin: 11/23/23 05:38 [...] Gel In Packet 1 packet TRANSDERML DAILY [facility] Stop: 11/20/24 08:59 Last Admin: 11/23/23 08:53 Dose: Not Given Tirzepatide [ Mounjaro] 5 Mg/0.5 Ml Pen Injector 5 mg SUBCUT Tu@0900 [facility] Stop: 11/29/24 08:59 Ondansetron HCl (Ondansetron 4 Mg/2 Ml Vial) 4 mg IV-PUSH Q8H PRN PRN Reason: Nausea And Vomiting Stop: 11/19/24 21:02 Pregabalin (Pregabalin 50 Mg Capsule) 50 mg PO DAILY [facility] Stop: 05/21/24 08:59 Sodium Chloride (Sodium Chloride [...] diabetic nephropathy. Patient has been going to [facility] on TTS for hemodialysis. Last hemodialysis [...] signed by Ada Uriostegui MD> 11/23/23 120 [facility] Work Phone: Progress note Author Chintan Hernández [facility] November 23, 2023 10:54am Note Date/Time November 23, 2023 10: 54am [facility] [address] [place] [address] Infect. Disease Progress Note Signed Patient: Evans Forte MR#: [id number] : 1970 Acct:[id number] Age/Sex: 53 / M Adm Date: 4 Loc: Room: [address] [place] [address] Type: ADM IN Attending Dr: Amy Escudero [...] 1 Mg Tablet) 1 mg PO QAM [facility] Stop: 11/20/24 08:59 Last Admin: 11/22/23 08:14 Dose: 1 mg Atorvastatin Calcium (Atorvastatin 20 Mg Tablet) 20 mg PO QAM [facility] Stop: 11/20/24 08:59 Last Admin: 11/22/23 08:13 Dose: 20 mg Calcitriol (Calcitriol 0.25 Mcg Capsule) 0.25 mcg PO TuThSa@0900 [facility] Stop: 11/22/24 08:59 Calcium Acetate (Calcium Acetate 667 Mg Capsule) 2,668 mg PO AC [facility] Stop: 11/20/24 07:29 Last Admin: 11/23/23 08:52 Dose: Not Given Carvedilol (Carvedilol 6.25 Mg Tablet) 6.25 mg PO BID [facility] Stop: 11/21/24 13:29 Last Admin: 11/23/23 08:53 Dose: Not Given Cyanocobalamin (Cyanocobalamin 1,000 Mcg Tablet) 1,000 mcg PO DAILY [facility] Stop: 11/20/24 08:59 Last Admin: 11/22/23 08:13 Dose: 1,000 mcg Darbepoetin Zechariah (Darbepoetin Zechariah In Polysorbat 25 Mcg/Ml Vial) 25 mcg IV-PUSHTu@0930 [facility]; Protocol Stop: 11/22/24 09:29 Furosemide (Furosemide 80 Mg Tablet) 80 mg PO BID@0800,1600 [facility] Stop: 11/21/24 15:59 Last Admin: 11/23/23 08:52 Dose: Not Given Heparin Sodium (Porcine) (Heparin 5,000 Unit/Ml Vial) 5,000 unit SUBCUT Q12HR [facility] Stop: 11/20/24 08:59 Last Admin: 11/23/23 08:53 [...] 300 mls @ 300 mls/hr IV Q12H [facility] Last Admin: 11/22/23 21:02 Dose: 300 mls/hr Ceftriaxone Sodium (Rocephin) 2 gm in 50 mls @ 100 mls/hr IV Q24H [facility] Last Admin: 11/22/23 19:25 Dose: 100 mls/hr Sodium Chloride (0.9% Sodium Chloride 1,000 Ml) 1,000 mls @ 0 mls/hr MISCELLANE.Q0M PRN PRN Reason: Dialysis Stop: 11/22/24 09:19 Last Infusion: 11/23/23 09:43 Dose: Infused Insulin Aspart (Insulin Aspart 300 Units/3 Ml Insuln.Pen) 0 units SUBCUT ACHS [facility]; Protocol Stop: 11/20/24 16:29 Last Admin: 11/23/23 08:52 Dose: Not Given Insulin Human Regular (Insulin Regular U-500, Human 1,500 Unit/3 Ml Insuln.Pen) 50 unit SUBCUT BID [facility] Stop: 11/20/24 08:59 Last Admin: 11/23/23 08:53 Dose: Not Given Levothyroxine Sodium (Levothyroxine 100 Mcg Tablet) 100 mcg PO DAILY.0630 [facility] Stop: 11/20/24 06:29 Last Admin: 11/23/23 05:38 [...] Gel In Packet 1 packet TRANSDERML DAILY [facility] Stop: 11/20/24 08:59 Last Admin: 11/23/23 08:53 Dose: Not Given Tirzepatide [ Mounjaro] 5 Mg/0.5 Ml Pen Injector 5 mg SUBCUT Tu@0900 [facility] Stop: 11/29/24 08:59 Ondansetron HCl (Ondansetron 4 [...] By: <Electronically signed by MD Chintan Hernández> 11/23/231 [facility] Work Phone: Progress note Author Amy Escudero [facility] November 24, 2023 1:40pm Note Date/Time November 23, 2023 1:0 3pm [facility] EN[facility] [address] [place] [address] Hospitalist Progress Note Signed Patient: Evans Forte MR#: [id number] : 1970 Acct:[id number] Age/Sex: 53 / M Adm Date: 4 Loc: 3T Room: [address] [place] [address] Type: DIS IN Attending Dr: Amy Escudero [...] Reason Stop Dose Admin Acetaminophen 650 mg 03/16/24 21:03 Acetaminophen 325 Mg Tablet PO 11/19/24 [...] Vial IV-PUSH 11/22/24 09:29 25 mcg Tu@0930 [facility] Administration Protocol Furosemide 80 mg 11/22/23 16:00 11/23/23 08:52 Furosemide 80 Mg Tablet PO 11/21/24 15:59 Not Given BID@0800,1600 [facility] Heparin Sodium (Porcine) 5,000 unit 11/21/23 09:00 [...] Insuln.Pen SUBCUT 11/20/24 16:29 Not Given ACHS [facility] Protocol Insulin Human Regular 50 unit 11/21/23 [...] VINCE Tirzepatide [ 5 mg 11/30/23 09:00 Mounpedro luis] 5 Mg/0.5 SUBCUT 11/29/24 08:59 Ml Pen [...] signed by Amy Escudero DO> 11/24/23 1340 [facility] Work Phone: Progress note Author Gi Mondragon [facility] November 23, 2023 3:53pm Note Date/Time November 23, 2023 3:5 3pm [facility] [address] [place] [address] Podiatry Progress Note Signed Patient: Evans Forte MR#: [id number] : 1970 Acct:[id number] Age/Sex: 53 / M Adm Date: 4 Loc: Room: [address] [place] [address] Type: ADM IN Attending Dr: Amy Escudero DO Copies to: ~ Subjective Subjective Date of Service: Date of Service: 11/23/2023 Time of Service: 15:51 Narrative: Mr. Forte is a 53 year old male who was admitted due to symptoms of sepsis. Patient has a large ulceration on the bottom of the right great toe and heel. 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 Patient states that the ulcerations [...] large hyperkeratosis. Patient will follow-up with his manager roofing and family for further wound care. 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 [employer] Other Summary Purpose Family History No Family [...] Hypertension Insulin dependent diabetes mellitus Metabolic acidosis [id number] Chief Complaint High BS R Leg Swelling vomiting/low urine output N18.5;E11.22;I12.9;N25.81;D63.1;E80.1;W87.5 abnormal labs, sent by ESRD Reason for Visit Acute hyperkalemia Acute kidney injury superimposed on CKD Chronic kidney disease CKD (chronic kidney disease) stage 5, GFR less than 15 ml/min Hyperkalemia Hypertension Insulin dependent diabetes mellitus Metabolic acidosis [id number] Chief Complaint DM E11.22 Chief Complaint DM E11.22 SOB Wheezing Chief Complaint E11.22 SOB Wheezing ESRD Reason for Visit [id number] Chief Complaint SOB Wheezing ESRD sob Reason for Visit [id number] Chief Complaint SOB Wheezing ESRD sob N18.6 Reason for Visit [id number] Chief Complaint SOB Wheezing ESRD sob N18.6 Needs Av Access; Vein Mapping Done At F ESRD ESRD, Peritoneal Dialysis Catheter Dysfunction Reason for Visit [id number] Chief Complaint SOB Wheezing ESRD sob N18.6 Needs Av Access; Vein Mapping Done At F ESRD ESRD, Peritoneal Dialysis Catheter Dysfunction ESRD, Peritoneal Dialysis Catheter Dysfunction Reason for Visit [id number] Chief Complaint ESRD sob N18.6 Needs Av Access; Vein Mapping Done At F ESRD ESRD, Peritoneal Dialysis Catheter Dysfunction ESRD, Peritoneal Dialysis Catheter Dysfunction F/U LEFT ARM AVF CREATION abdominal wound fever, low blood pressure: post dialysis Reason for Visit [id number] Dependence on renal dialysis Chief Complaint ESRD [...] Benign hypertension with end-stage renal disease Diabetes [id number] Edema of right lower extremity End stage [...] Benign hypertension with end-stage renal disease Diabetes [id number] Edema of right lower extremity End stage [...] Ft pain March 26, 2025 8:22 am Chief Complaint Admit Date ref Dr. Vázquez back pain and neuropathy February 13, 2025 8:20am Amb Documentation February 20, 2025 8:27 am f/u and med refill for chronic pain March 07, 2025 3:40pm ran out of pain rx March 11, 2025 10:16 am Bilat Ft pain March 26, 2025 8:22 am pain April 24, 2025 8: 31am Additional Source Comments (unrecognized sect ion and content) No Status Records FoundNo Status Records FoundNo Status Records FoundNo Status Records FoundNo Status Records FoundNo Status Records FoundNo Status Records FoundNo Status Records FoundNo Status Records FoundNo Status Records FoundNo Status Records FoundNo Status Records Found INFORMATION SOURCE (unrecogn ized section and content) DATE CREATED AUTHOR 04/03/2020 [facility] DATE CREATED AUTHOR AUTHOR'S ORGANIZ ATION 10/24/2021 [facility] dical Specialist DATE CREATED AUTHOR AUTHOR'S ORGANIZ ATION 05/14/2022 [facility] DATE CREATED AUTHOR AUTHOR'S ORGANIZ ATION 10/10/2022 [facility] DATE CREATED AUTHOR AUTHOR'S ORGANIZ ATION 12/10/2022 [facility] DATE CREATED AUTHOR AUTHOR'S ORGANIZ ATION 12/07/2024 [facility] dical Specialists [facility] DATE CREATED AUTHOR AUTHOR'S ORGANIZ ATION 02/06/2025 [facility] DATE CREATED AUTHOR AUTHOR'S ORGANIZ ATION 04/25/2025 [facility] DATE CREATED AUTHOR AUTHOR'S ORGANIZ ATION 04/28/2025 [facility] DATE CREATED AUTHOR AUTHOR'S ORGANIZ ATION 05/12/2025 [facility] DATE CREATED AUTHOR AUTHOR'S ORGANIZ ATION 05/13/2025 [facility] DATE CREATED AUTHOR AUTHOR'S ORGANIZ ATION 05/14/2025 [facility] REASON FOR VISIT (unrecogniz ed section and content) Reason Onset Date Comments Medication 04/06/2025 Reason Comments Foot Pain Bilateral feet pain ongoing for the last 30 years. Hx of neuropathy. Has appointment with pain management for an epidural tomorrow. requesting pain medication for today and tomorrow to get him through his dialysis appointment in the morning before going to pain management. Reason Comments Back Pain Reason Comments Med [...] NEEDS AV ACCESS; VEIN MAPPING DONE [facility] 09/27/23, Need for dialysis accessWMN VoicemailTKM Pump start and U-500 refillTKM Pump orderTKM refill requestlab result/order for tandem pumplab results,suppliesTKM LyricaTKM - REFILL REQUEST FOR LYRICAletter for [facility]ENTERClinicalCKD and HTNCKD Care Teams (unrecognized [...] Status: Inactive Member Role Status Dates Idaniakavita Monahankorina , DO Primary Care Provider Active Evans [...] Petlizbethick , DO Primary Care Provider Active Clara Bell DO Emergency Provider Active Team Status: Inactive Member Role Status Dates Idania Petilzbethick , DO Primary Care Provider Active Ramirez [...] September 27, 2023 End: September 27, 2023 Residential Solar Sales Consultant Relationship Specialty Start Date End Date Idania Ricketts, DO [address] [place] [address] PCP - [facility] 09/09/22 Marilin Idania M, DO [address] [place] [address] PCP - Medical [place] [facility] 02/04/23 Idania Ricketts Maeve, DO [address] [place] [address] PCP - General Family Medicine 09/20/23 Residential Solar Sales Consultant Relationship Specialty Start Date End Date VandanaastonIdania Maeve, DO [address] [place] [address] [facility] 09/09/22 Idania Ricketts Maeve, DO [address] [place] [address] PCP - [facility] 02/04/23 Idania Ricketts Maeve, DO [address] [place] [address] PCP - General Family Medicine 09/20/23 Team Status: Inactive Member Role Status Dates Ramirez Jean MD Attending Provider Active S tart: October 04, 2023 End: October 04, 2023 Residential Solar Sales Consultant Relationship Specialty Start Date End Date Idania Ricketts, DO [address] [place] [address] PCP - [facility] 09/09/22 Marilin Idania Maeve, DO [address] [place] [address] PCP - Medical [facility] 02/04/23 Herokorina Idania Maeve, DO [address] [place] [address] PCP - General Family Medicine 09/20/23 Team [...] Team Status: Active Member Role Status Dates Iadnia Ricketts DO Primary Care Provider Active Start: [...] May 15, 2024 End: May 15, 2024 Residential Solar Sales Consultant Relationship Specialty Start Date End Date Idania Ricketts DO [address] [place] [address] PCP - General Family Medicine 09/20/23 Residential Solar Sales Consultant Relationship Specialty Start Date End Date Idania Ricketts, DO [address] [place] [address] PCP - General Family Medicine 09/20/23 Residential Solar Sales Consultant Relationship Specialty Start Date End Date Idania Ricketts, DO [address] [place] [address] PCP - General Family Medicine 09/20/23 Idania Ricketts DO [address] [place] [address] PCP - [facility] 09/06/23 09/05/24 Residential Solar Sales Consultant Relationship Specialty Start Date End Date Vandanaaston Idania M, DO [address] [place] [address] PCP - General Family Medicine 09/20/23 Marilin Idania M, DO [address] [place] [address] PCP - [facility] 09/06/23 09/05/24 Residential Solar Sales Consultant Relationship Specialty Start Date End Date Herokorina Idania M, DO [address] [place] [address] PCP - General Family Medicine 09/20/23 Idania Ricketts Maeve, DO [address] [place] [address] [facility] - [facility] 09/06/23 09/05/24 Residential Solar Sales Consultant Relationship Specialty Start Date End Date Tesfaye Rickettskavita Mcfarlane, DO [address] [place] [address] PCP - General Family Medicine 09/20/23 Residential Solar Sales Consultant Relationship Specialty Start Date End Date Idania Ricketts Maeve, DO [address] [place] [address] PCP - General Family Medicine 09/20/23 Residential Solar Sales Consultant Relationship Specialty Start Date End Date Idania Ricketts Maeve, DO [address] [place] [address] PCP - General Family Medicine 09/20/23 Residential Solar Sales Consultant Relationship Specialty Start Date End Date Idania Ricketts Maeve, DO [address] [place] [address] PCP - General Family Medicine 09/20/23 Residential Solar Sales Consultant Relationship Specialty Start Date End Date Idania Ricketts, DO [address] [place] [address] PCP - General Family Medicine 09/20/23 Residential Solar Sales Consultant Relationship Specialty Start Date End Date Idania Ricketts, DO [address] [place] [address] PCP - General Family Medicine 09/20/23 Idania Ricketts, DO [address] [place] [address] PCP - [facility] 09/06/23 09/05/24 Residential Solar Sales Consultant Relationship Specialty Start Date End Date Idania Ricketts, DO [address] [place] [address] PCP - General Family Medicine 09/20/23 Idania Ricketts, DO [address] [place] [address] PCP - [facility] 09/06/23 09/05/24 Residential Solar Sales Consultant Relationship Specialty Start Date End Date Idania Ricketts, DO [address] [place] [address] PCP - General Family Medicine 09/20/23 Residential Solar Sales Consultant Relationship Specialty Start Date End Date Idania Ricketts, DO [address] [place] [address] PCP - General Family Medicine 09/20/23 Residential Solar Sales Consultant Relationship Specialty Start Date End Date Idania Ricketts, DO [address] [place] [address] PCP - General Family Medicine 09/20/23 Residential Solar Sales Consultant Relationship Specialty Start Date End Date Idania Ricketts DO [address] [place] [address] PCP - General Family Medicine 09/20/23 Residential Solar Sales Consultant Relationship Specialty Start Date End Date Idania Ricketts DO [address] [place] [address] PCP - General [facility] Medicine 09/20/23 Residential Solar Sales Consultant Relationship Specialty Start Date End Date Idania Ricketts DO [address] [place] [address] PCP - [facility] Medicine 09/20/23 Team Status: Inactive Member Role Status Dates Idania Ricketts DO Primary Care Provider Active Start: August 28, 2024 End: August 29, 2024 Delano Mondragon MD Emergency Provider Active Star t: August 28, 2024 End: August 29, 2024 Team Status: Active Member Role Status Dates Idnaia Ricketts DO Primary Care Provider Active Start: [...] Jf Liu MD Other Provider Active Start: [facility] 2024 End: October 30, 2024 Marielos Black NP-C Other Provider Active Start: October 29, 2024 End: October 30, 2024 Ada Uriostegui MD Other Provider Active Start: [facility] 2024 End: October 30, 2024 Yocasta Villalba MD Other Provider Active Start: [facility] 2024 End: October 30, 2024 Gi Mondragon DPM Other Provider Active Star t: October 29, 2024 End: October 30, 2024 Residential Solar Sales Consultant Relationship Specialty Start Date End Date Idania Ricketts DO [address] [place] [address] PCP - General [facility] Medicine 09/20/23 Team Status: Inactive Member Role Status Dates Idania Ricketts DO Primary Care Provider Active Start: November 27, 2024 End: November 28, 2024 Venkat Burgos DO Emergency Provider Active Sta rt: November 27, 2024 End: November 28, 2024 Residential Solar Sales Consultant Relationship Specialty Start Date End Date Idania Ricketts DO [address] [place] [address] PCP - General Family Medicine 09/20/23 Team [...] February 13, 2025 End: February 13, 2025 Residential Solar Sales Consultant Relationship Specialty Start Date End Date Idania Ricketts DO [address] [place] [address] PCP - General Family Medicine 09/20/23 Team [...] March 26, 2025 End: March 26, 2025 Residential Solar Sales Consultant Relationship Specialty Start Date End Date Idania Ricketts DO [address] [place] [address] PCP - General 06/15/18 Team Status: Inactive Member Role Status Dates Idania Ricketts Primary Care Provider Active Start: April 24, 2025 End: April 24, 2025 Will Cerna PA-C Emergency Provider Active Start: April 24, 2025 End: April 24, 2025 Residential Solar Sales Consultant Relationship Specialty Start Date End Date Idania Ricketts DO [address] [place] [address] PCP - General 06/15/18 Goals (unrecognized section and content) Goals may be documented in a n alternate section Ordered Prescriptions (unrec ognized section and content) Prescription Sig Dispense Quantity Refills Last Filled Start Date End Date pregabalin (LYRICA) 75 MG capsuleIndications :Idiopathic peripheral neuropathy Take 1 capsule by mouth daily for 5 doses. Max Daily Amount: 75 mg 5 capsule 02/02/2025 5 Prescription Sig Dispense Quantity Refills Last Filled Start Date End Date HYDROcodone-acetam inophen (NORCO) 5-325 MG per tabletIndications: Chronic foot pain, unspecified laterality Take 1 tablet by mouth every 6 hours as needed for Pain for up to 3 days. Intended supply: 3 days. Take lowest dose possible to manage pain Max Daily Amount: 4 tablets 12 tablet 04/26/2025 5 Scheduled Active and Recently Administ ered Medications [...] BE BASED ON THE PRIMARY CLINICAL RECORDS. [employer] provides no warranty or guarantee of the accuracy or completeness of information in this document.
--- NOTE | 2025-05-14 23:04 | ED.EXTPRO1 ---
HPI - Extremity Problem General Chief complaint: Extremity Problem, Nontraumatic Stated complaint: NEUROPATHY PAIN IN FEET Time Seen by Provider: 05/14/25 22:53 Source: patient Mode of arrival: walk-in Limitations: no limitations History of Present Illness HPI Narrative: neuropathy. diabetic renal hemodialysis patient. On Lyrica and pamelor for neuropathy. Also chronic back pain and has received injections in his back from pain specialist. Presents tonight complaining of neuropathy pain of his feet and now able to sleep. No fever or injury. No weakness Related Data Home Medications ?Medication ?Instructions ?Recorded ?Confirmed B complex 11-folic acid 1 mg-C 100 1 tab PO DAILY 08/29/24 05/14/25 mg-biotin 300 mcg-zinc 50 mg tablet (Dialyvite) anastrozole 1 mg tablet 1 mg PO DAILY 08/29/24 05/14/25 aspirin 81 mg chewable tablet 1 tab PO DAILY 08/29/24 05/14/25 atorvastatin 20 mg tablet 20 mg PO DAILY 08/29/24 05/14/25 calcitriol 0.25 mcg capsule 0.25 mcg PO QWEEK 08/29/24 05/14/25 carvedilol 6.25 mg tablet 6.25 mg PO Q12H 08/29/24 05/14/25 escitalopram oxalate 10 mg tablet 10 mg PO DAILY 08/29/24 05/14/25 furosemide 80 mg tablet 80 mg PO Q12H 08/29/24 05/14/25 insulin glargine 100 unit/mL (3 60 unit subcut QAM 08/29/24 05/14/25 mL) subcutaneous pen (Lantus Solostar U-100 Insulin) insulin lispro 100 unit/mL 10 unit subcut .meal 08/29/24 05/14/25 subcutaneous pen (Humalog KwikPen (U-100) Insulin) levothyroxine 100 mcg tablet 100 mcg PO DAILY 08/29/24 05/14/25 pregabalin 150 mg capsule 150 mg PO TID 08/29/24 05/14/25 sevelamer carbonate 800 mg tablet 800 mg PO TID 08/29/24 04/10/25 tenapanor 30 mg tablet (Xphozah) 30 mg PO DAILY 08/29/24 05/14/25 testosterone 1.62 % (20.25 mg/1.25 1 packet topical DAILY 08/29/24 04/10/25 gram) transdermal gel packet methocarbamol 500 mg tablet 500 mg PO Q8H PRN back spasms 01/02/25 04/10/25 midodrine 10 mg tablet 10 mg PO .during dialysis PRN low 01/02/25 04/10/25 bp bumetanide 2 mg tablet 2 mg PO Q12H 04/06/25 05/14/25 calcium acetate(phosphat bind) 667 1,334 mg PO DAILY TID 04/06/25 05/14/25 mg capsule Previous Rx's ?Medication ?Instructions ?Recorded hydrocodone 5 mg-acetaminophen 325 1 tab PO Q6H PRN pain #5 tabs 04/20/25 mg tablet Allergies Allergy/AdvReac Type Severity Reaction Status Date / Time vancomycin AdvReac Severe rash Verified 05/14/25 22:34 adhesive AdvReac Intermediate rash Verified 05/14/25 22:34 latex AdvReac Mild Rash Verified 05/14/25 22:34 sunflower seed AdvReac Mild Congested Verified 05/14/25 22:34 PFSH PFSH Medical History Diabetes ?E11.9 - Type 2 diabetes mellitus without complications (ICD-10) Hypertension ?I10 - Essential (primary) hypertension (ICD-10) Leukemia ?C95.90 - Leukemia, 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 (ICD-10) Surgical History H/O foot surgery ?Z98.890 - Other specified postprocedural states (ICD-10) H/O right heart catheterization ?Z98.890 - Other specified postprocedural states (ICD-10) Social History Little interest or pleasure in doing things: not at all Feeling down, depressed, or hopeless: not at all Exam Constitutional Vital Signs, click to edit/add: Last Vital Signs Temp 97.6 F 05/14/25 22:31 Pulse 85 05/14/25 22:31 Resp 18 05/14/25 22:31 BP 190/90 H 05/14/25 22:31 Pulse Ox 98 05/14/25 22:31 O2 Del Method Room Air 05/14/25 22:31 Common normals: no apparent distress, average body habitus, oriented x3, no limitations, healthy appearing, alert and well nourished HENNY Common normals: normocephalic and head/scalp atraumatic Eye Common normals: EOMs intact bilaterally and conjunctivae normal Respiratory Common normals: normal respiratory effort, no retractions, no use of accessory muscles and clear to auscultation bilaterally Cardio Common normals: regular rate, regular rhythm, S1 normal heart sound and S2 normal heart sound Extremity Common normals: normal to inspection and full ROM Neuro Common normals: oriented x3, CN's II-XII intact bilaterally, moves all extremities and no focal motor deficits Psych Appearance: grossly normal Course Vital Signs Vital signs: Vital Signs Temperature 97.6 F 05/14/25 22:31 Pulse Rate 85 05/14/25 22:31 Respiratory Rate 18 05/14/25 22:31 Blood Pressure 190/90 H 05/14/25 22:31 Pulse Oximetry 98 05/14/25 22:31 Oxygen Delivery Method Room Air 05/14/25 22:31 Temperature 97.6 F 05/14/25 22:31 Pulse Rate 85 05/14/25 22:31 Respiratory Rate 18 05/14/25 22:31 Blood Pressure 190/90 H 05/14/25 22:31 Pulse Oximetry 98 05/14/25 22:31 Oxygen Delivery Method Room Air 05/14/25 22:31 MDM - Extremity (Nontraumatic) MDM Narrative Medical decision making narrative: patient with known diabetic neuropathy for which he is on Lyrica and [place]. Presents complaining of flare up on increased neuropathic pain tonight interfering with him trying to sleep Exam unremarkable. Given dose of norco in the department and discharged with a prescription for [place] 5/325 1-2 tid prn # 8. He is to follow up with his family doctor this week Discharge Plan Discharge Chief Complaint: Extremity Problem, Nontraumatic Clinical Impression: Diabetic neuropathy Patient Disposition: Home, Self-Care Prescriptions / Home Meds: No Action methocarbamol 500 mg tablet 500 mg PO Q8H PRN (Reason: back spasms) midodrine 10 mg tablet 10 mg PO .during dialysis PRN (Reason: low bp) hydrocodone-acetaminophen 5-325 mg tablet 1 tab PO Q6H PRN (Reason: pain) Qty: 5 0RF anastrozole 1 mg tablet 1 mg PO DAILY aspirin 81 mg tablet,chewable 1 tab PO DAILY atorvastatin 20 mg tablet 20 mg PO DAILY Dialyvite [phone] ye-zi-gda-mg tablet 1 tab PO DAILY calcitriol 0.25 mcg capsule 0.25 mcg PO QWEEK carvedilol 6.25 mg tablet 6.25 mg PO Q12H escitalopram oxalate 10 mg tablet 10 mg PO DAILY pregabalin 150 mg capsule 150 mg PO TID furosemide 80 mg tablet 80 mg PO Q12H insulin glargine [Lantus Solostar U-100 Insulin] 100 unit/mL (3 mL) insulin pen 60 unit SUBCUT QAM insulin lispro [Humalog KwikPen Insulin] 100 unit/mL insulin pen 10 unit SUBCUT .meal Patient Comments: unknown ? levothyroxine 100 mcg tablet 100 mcg PO DAILY sevelamer carbonate 800 mg tablet 800 mg PO TID Xphozah 30 mg tablet 30 mg PO DAILY testosterone 1.62 % (20.25 mg/1.25 gram) gel in packet 1 packet topical DAILY bumetanide 2 mg tablet 2 mg PO Q12H calcium acetate(phosphat bind) 667 mg capsule 1,334 mg PO DAILY Print Language: Sami Instructions: Diabetic Neuropathy (ED) Additional Instructions: follow up with your doctor this week for recheck Referrals: ANGEL RICKETTS [Primary Care Provider, Family Practice] - 1 week
[2025-05-14] MEDS: HYDROCODONE/ACET 5-325 MG TABLET 2 TAB PO (23:18)
== END 2025-05-14 23:23 | disposition home or self-care (01) ==
PROVIDERS: Emergency Provider Internal Medicine; PCP Family Medicine
DX: E11.40 Type 2 diabetes mellitus with diabetic neuropathy, unspecified (principal); Z99.2 Dependence on renal dialysis; Z79.4 Long term (current) use of insulin
CPT/HCPCS: 99283

== ENCOUNTER 2025-05-18 17:36 | Emergency (ER) | payer MEDICARE, SELFPAY ==
--- OUTSIDE RECORDS SUMMARY | 2025-05-10 13:00 | XMS_ITS | Encounter Summary ---
Author Organization [facility] [employer] [facility] tem Address [id number] [address] [place] [address] Care Team Providers Care Environmental Technician Name Role Phone Idania Gaston DO Primary Care Provider [phone] Reason for Referral * Misc (Routine) - Pending Review Specialty Diagnoses / Procedures Referred By Contac t Referred To Contact Diagnoses Spinal stenosis of lumbar region with neurogenic claudication Procedures Case request operating room: INJECTION BLOCK EPIDURAL CAUDAL STEROID Maciej Roldan PA [address] [place] [address] Phone: tel: fax: Referral ID Status Reason Start Date Expiration Date V isits Requested Visits Authorized [id number] Pending Review 05/10/2025 05/10/2026 1 1 Reason for Visit * Reason Comments Back Pain Encounter Details Date Type Department Care Team (Late st Contact Info) Description 05/10/2025 1:00 PM EDT Office Visit [facility] [address] [place] [id number] Maciej Roldan PA [address], [address] [place] [address] [phone] Spinal stenosis of lumbar region with neurogenic [...] got money to buy more. Never True 05/10/2025 Within the past 12 months th e food we bought just didn't last and we didn't have money to get more. Never True 05/10/2025 Purpose - Life Answer Date Recorded Purpose and direction in life Unknown Sex and Gender Information Value Date Recorded Sex Assigned at Not on file Legal Sex Male 12:06 PM EDT Gender Identity Not on file Sexual Orientation Not on file documented as of this encounter Last Filed Vital Signs Vital Sign Reading Time Taken Comments Blood Pressure 204/104 05/10/2025 1:06 PM EDT patient states this is his normal BP and he didn't take his meds today Pulse 73 05/10/2025 1:06 PM EDT Temperature - - Respiratory Rate 20 05/10/2025 1:06 PM EDT Oxygen Saturation 99% 05/10/2025 1:0 6 PM EDT Inhaled Oxygen Concentration - - Weight 149.2 kg (329 lb) 05/10/2025 1:0 6 PM EDT Height 188 cm (6' 2 ) 05/10/2025 1:06 PM EDT Body Mass Index 42.24 05/10/2025 1:06 PM EDT documented in this encounter Patient Instructions * Patient Instructions* Minda Paiz CNA - 05/10/2025 1:00 PM EDT Epidural Steroid Injection (AMBER) / Nerve [...] a safety precaution, you must have a paratransit driver after a lumbar nerve root injection, [...] encounter Progress Notes * KAREN Box - 05/10/2025 1:00 PM EDT [facility] [address] [place] [address] Patient: Mina Forte Jr. Sex: male : 1970 Age: 55 y.o. PCP: IDANIA GASTON, DO 05/10/2025 Mina Forte Jr. is here for a(n) post procedure follow up 04-27-2025 Caudal injection with 50%relief x 1 day for pain in bilateral feet. 0% relief today. . Date of onset of pain: 2023 , pain has lasted greater than 3 months. Pain scale before treatment: 10/10 Pre-op pain score: 8/10 Percentage and duration of relief after treatment: 50% relief x 1 day Pain scale after treatment: 8/10 Chief Complaint Patient presents with Back Pain HPI: Patient has been taking 25 mg Nortriptyline with no relief. This is the highest dose he can take due to end stage renal failure 04-27-2025 Caudal injection with 50% relief x 1 day for pain in bilateral feet. 0% relief today. Back Pain This is a chronic problem. The current episode started more than 1 year ago (chronic). The problem occurs constantly. The problem has been gradually worsening since onset. Pain location: Patient has pain in bilateral feet due to diabetic neuropathy. The quality of the pain is described as aching. The pain does not radiate (slim feet with neuropathy). The pain is at a severity of 8/10. The pain is severe. The pain is The same all the time. Exacerbated by: activityby wearing shoes (with foot pain)Stiffness is present In the morning (stiff back). Associated symptoms include numbness (slim feet), tingling (slim feet) and weakness (BLE). Pertinent negatives include no bladder incontinence, bowel incontinence, chest pain, fever or leg pain. Risk factors include poor posture, obesity, sedentary [...] on 5-9am via left avf Diabetes mellitus ([facility]) Diabetes mellitus type 2, controlled ([facility]) Hyperlipidemia Hypothyroid Obesity Past Surgical History: Procedure Laterality Date CARDIAC CATHETERIZATION 12/2024 last one (2 total) FISTULA CREATION Left FOOT SURGERY Right INJECTION BLOCK EPIDURAL CAUDAL STEROID N/A 04/27/2025 Performed by Tyshawn Jacobson MD at [facility] Allergies Allergen Reactions Adhesive Tape-Silicones Rash Latex Rash If on for long periods of time Other Reaction(s): Unknown If on for long periods of time Vancomycin Hives Haloperidol Anxiety [place] Seed Abdominal Pain Runny nose, watery eyes [...] use: No Drug use: No Sexual activity: Defer Other Topics Concern Not on file Social History Narrative Not on file Social Drivers of Health Financial Resource Strain: Medium Risk (12/05/2024) Received from [facility] Overall Financial Resource Strain (CARDIA) Difficulty of Paying Living Expenses: Somewhat hard Food Insecurity: No Food Insecurity (05/10/2025) Hunger Screening Food Insecurity - Worry: Never True Food Insecurity - Inability: Never True Transportation Needs: No Transportation Needs (12/05/2024) Received from [facility] PRAPARE - Transportation Lack of Transportation (Medical): No Lack of Transportation (Non-Medical): No Physical Activity: Insufficiently Active (12/05/2024) Received from [facility] Exercise Vital Sign Days of Exercise per Week: 3 days Minutes of Exercise per Session: 30 min Stress: Stress Concern Present (12/05/2024) Received from [facility] [place] of Occupational Health - Occupational Stress Questionnaire Feeling of Stress : To some extent Social Connections: Socially Integrated (12/05/2024) Received from [facility] Social Connection and Isolation Panel [NHANES] Frequency of Communication with Friends and Family: More than three times a week Frequency of Social Gatherings with Friends and Family: Three times a week Attends Holiness Services: 1 to 4 times per year Active Member of Clubs or Organizations: Yes Attends Club or Organization Meetings: 1 to 4 times per year Marital Status: Interpersonal Safety: Not At Risk (12/21/2024) Received from [facility] Humiliation, Afraid, Rape, and Kick questionnaire Fear of Current or Ex-Partner: No Emotionally Abused: No Physically Abused: No Sexually Abused: No Housing Instability: High Risk (12/05/2024) Received from [facility] Housing Stability Vital Sign Unable to Pay for Housing in the Last Year: Yes Number of Times Moved in the Last Year: Not on file Homeless in the Last Year: No Review of Systems Constitutional: Negative. Negative for fever. HENT: Negative. Eyes: Negative. Respiratory: Negative. Cardiovascular: Negative. Negative for chest pain. Gastrointestinal: Negative. Negative for bowel incontinence. Genitourinary: Negative. Negative for bladder incontinence. Musculoskeletal: Positive for back pain. Skin: Negative. Neurological: Positive for tingling (slim feet), weakness (BLE) and numbness (slim feet). Vital Signs: BP (!) 204/104 (BP Site: Right Arm, BP Postition: Sitting) Comment: patient states this is his normal BP and he didn't take his meds today Pulse 73 Resp 20 Ht 188 cm (6' 2 ) Wt (!) 149.2 kg(329 lb) SpO2 99% BMI 42.24 kg/m?? Patient educated on the risks of high BP and symptoms that could lead to a stroke. Patient verbalized understanding. States he normally does not take his BP medications on dialysis days which are Jksykb-Rtpnwhhzw-Gowzyi and today he forgot to take them. States he normally runs around 200/100 Physical Exam: GENERAL - Healthy patient that [...] BLOCK EPIDURAL CAUDAL STEROID Diabetic peripheral neuropathy ([facility]) Continue Nortriptyline 25 mg at HS PLAN IN OFFICE- Diabetic Peripheral Neuropathy Qutenza R (capsaicin) 8% topical system is [...] would like to proceed with the procedure. Caudal Epidural Steroid Injection - under fluoroscopy [...] up 2 weeks after procedure The medications I have prescribed have been reviewed for medication interactions/contraindications and/or for upcoming procedures: continue current medication regimen without any changes. DISCUSSION: Treatment options discussed with patient and all questions answered to patient's satisfaction. Discussed the rules and regulations surrounding prescription of opioids and compliance at length. Failure to follow the rules and regulation will result in tapering and discontinuation of medications if applicable. The patient has been instructed as to the type of medication prescribed alongwith directions for use. Potential side effects have been discussed, along with risks and benefits of taking this medication. (S)he was instructed as to what to do if (s)he experiences side effects, including when to discontinue the medication. (S)he was advised to call this office in this event. Also discussed at length safety and security of RX and medications. Prescribed medication that requires intensive monitoring for toxicity We do not currently prescribeany controlled substance from this practice. It is noted that the patient did have good response from the previously performed procedure. It is felt that the patient would benefit from an additional procedure of the same nature in that the samesymptoms have returned. It is hopeful that this additional injection will provide additional benefit and duration when combined with the previous injection. The spine model was demonstrated and MRI [...] to the patient prior to any procedure. OARRS: Reviewed. Scribe Statement: IMinda CNA, scribed for and in the presence of KAREN BOX who performed the above service. Minda Paiz CNA 05/10/25 1342 KAREN Box 05/15/25 1233 documented in this encounter Plan of Treatment Upcoming Encounters Date Type Department Care Team (Latest Contact Info) Description 05/25/2025 1:00 PM EDT Hospital Encounter [facility] [address] [place] [phone] Tyshawn Jacobson MD [address] [place] [address] 05/25/2025 1:00 PM EDT - 05/25/2025 1:07 PM EDT Surgery [facility] [address] [place] [phone] Tyshawn Jacobson MD [address] [place] [address] INJECTION BLOCK EPIDURAL CAUDAL STEROID 06/19/2025 10:45 AM EDT Office Visit [facility] [address] [place] [phone] Maciej Roldan PA [address] [place] [address] 06/21/2025 1:00 PM EDT Office Visit [facility] [address] [place] [phone] Chintan Quinn DO [address], [address] [place], [place] [phone] Scheduled Procedures Name Priority Associated Diagnoses Date/Ti me INJECTION BLOCK EPIDURAL CAUDAL STEROID Spinal stenosis of lumbar region with neurogenic claudication 05/25/2025 1:00 PM EDT documented as of this encounter Visit Diagnoses Diagnosis Spinal stenosis of lumbar region with neurogenic claudication- Primary Diabetic peripheral neuropathy (CMS-HCC) Type II or unspecified type diabetes mellitus with neurological manifestations, not stated as uncontrolled Spinal stenosis of lumbar region with neurogenic claudication- Primary Spinal stenosis of lumbar region with neurogenic claudication documented in this encounter Care Teams Environmental Technician Relationship Specialty Start Date End Date Idania Gaston DO [address] [place] [id number] PCP - General 06/15/18 05/16/25 documented as of this encounter
--- OUTSIDE RECORDS SUMMARY | 2025-05-17 10:30 | XMS_ITS | Encounter Summary ---
Author Organization [facility] tem Address [id number] [address] [place] [address] Care Team Providers Care Miter Sawyer Name Role Phone Chintan Quinn DO Primary Care Provider [phone] Reason for Visit * Reason Comments Establish Care Encounter Details Date Type Department Care Team (Late st Contact Info) Description 05/17/2025 10:30 AM EDT [facility] [address] [place] [address] [place] [address] Chintan Quinn DO [address] [place] [address], [address], [place] [address] Neuropathic pain of both feet (Primary Dx); [place], [place]bid [place] [place] ESRD (end stage renal disease) on dialysis ([facility] [place] Social History Tobacco Use Types Packs/Day Years Used Date Smoking Tobacco: Never Smokeless Tobacco: Current Chew Alcohol Use Standard Drinks/Week Comments No 0 (1 standard drink = 0.6 oz pur e alcohol) AUDIT-C Answer Date Recorded Frequency of Alcohol Consumption Never 06/16/2018 Average Number of Drinks Not on file 018 Frequency of Binge Drinking Not on file 06/06 PHQ-2 Answer Date Recorded Total Score 0 05/17/2025 Childcare Answer Date Recorded Childcare Unknown 02/15/2019 Employment Answer Date Recorded Employment Unknown 02/15/2019 Hunger Screening Answer Date Recorded Within the past 12 months we worried whether our food would run out before we got money to buy more. Never True 05/17/2025 Within the past 12 months th e food we bought just didn't last and we didn't have money to get more. Never True 05/17/2025 Purpose - Life Answer Date Recorded Purpose and direction in life Unknown Sex and Gender Information Value Date Recorded Sex Assigned at Not on file Legal Sex Male 12:06 PM EDT Gender Identity Not on file Sexual Orientation Not on file documented as of this encounter Last Filed Vital Signs Vital Sign Reading Time Taken Comments Blood Pressure 146/96 05/17/2025 10:31 AM EDT Pulse 77 05/17/2025 10:31 AM EDT Temperature 36.8 C (98.2 F) 05/17/2025 10:31 AM EDT Respiratory Rate - - Oxygen Saturation 96% 05/17/2025 10: 31 AM EDT Inhaled Oxygen Concentration - - Weight 147.8 kg (325 lb 12.8 oz) 2024 10:31 AM EDT Height 182 cm (5' 11.65 ) 05/17/2025 10 :31 AM EDT Body Mass Index 44.61 05/17/2025 10:31 AM EDT documented in this encounter Plan of Treatment Upcoming Encounters Date Type Department Care Team (Latest Contact Info) Description 05/25/2025 1:00 PM EDT Hospital Encounter [facility] - Pain Procedures [address] [place] [phone] Tyshawn Jacobson MD [address] [place], [place] [phone] 05/25/2025 1:00 PM EDT - 05/25/2025 1:07 PM EDT Surgery [facility] - Pain Procedures [address] [place] [phone] Tyshawn Jacobson MD [address] [place], [place] [phone] INJECTION BLOCK EPIDURAL CAUDAL STEROID 06/19/2025 10:45 AM EDT Office Visit [facility] - [facility] Management Clinic [address] [place] [phone] Maciej Roldan PA [address] [place] [address] 06/21/2025 1:00 PM EDT Office Visit [facility] [address] [place] [phone] Chintan Quinn DO [address] [facility], [place] [address] Scheduled Procedures Name Priority Associated Diagnoses Date/Ti me INJECTION BLOCK EPIDURAL CAUDAL STEROID Spinal stenosis of lumbar region with neurogenic claudication 05/25/2025 1:00 PM EDT documented as of this encounter Visit Diagnoses Diagnosis Spinal stenosis of lumbar region with neurogenic claudication- Primary Neuropathic pain of both feet- Primary Obesity, morbid ([facility] [place]) Morbid obesity ESRD (end stage renal disease) on dialysis ([facility] [place]) End stage renal disease Spinal stenosis of lumbar region with neurogenic claudication documented in this encounter Additional Health Concerns Assessment Noted Time PHQ-9 Depression Total Score: 0 05/17/20 10:31 AM EDT documented as of this encounter Care Teams Miter Sawyer Relationship Specialty Start Date End Date Chintan Quinn DO [address] [facility], [place] [address] PCP - General Family Medicine 05/17/25 documented as of this encounter
--- OUTSIDE RECORDS SUMMARY | 2025-05-18 17:42 | XMS_ITS | Encounter Summary ---
Author Organization [facility] Address [address] [place] [address] Care Team Providers Care Flash Developer Name Role Phone Idania Gaston DO Primary Care Provider [phone] Idania Gaston DO Unavailable [phone] Encounter Details Date Type Department Care Team (Late st Contact Info) Description 11/22/2023 Abstract [facility] [address] [facility] [address] [place] [phone] Idania Gaston, DO [address] [facility] [address] [place] [address] Social History Tobacco Use Types Packs/Day Years [...] Care Team (Late st Contact Info) Description 05/22/2025 4:00 PM EDT Office Visit [facility] [address] [place] [address] Idania Gaston DO [address] [place] [address] documented as of this encounter Visit Diagnoses Not on filedocumented in this encounter Care Teams Flash Developer Relationship Specialty Start Date End Date Idania Gaston DO [address] [place] [address] PCP - General Family Medicine 09/20/23 Idania Gaston DO [address] [place] [address] PCP - [facility] 09/06/23 09/05/24 documented as of this encounter
--- OUTSIDE RECORDS SUMMARY | 2025-05-18 17:42 | XMS_ITS | Encounter Summary ---
Author Organization [facility] Address [address] [place] [address] Care Team Providers Care Noodle Press Operator Name Role Phone Idania Gaston DO Primary Care Provider [phone] Encounter Details Date Type Department Care Team (Late st Contact Info) Description 09/19/2024 [facility] [address] [place] [phone] Idania Gaston, DO [address] [place] [address] Social History Tobacco Use Types Packs/Day Years [...] [address] [place] [address] Idania Gaston DO [address] [facility] [address] [place] [address] documented as of this encounter Visit Diagnoses Not on filedocumented in this encounter Care Teams Noodle Press Operator Relationship Specialty Start Date End Date Idania Gaston DO [address] [facility] [address] [place] [address] PCP - General Family Medicine 09/20/23 documented as of this encounter
--- OUTSIDE RECORDS SUMMARY | 2025-05-18 17:42 | XMS_ITS | Encounter Summary ---
Author Organization [facility] tem Address [id number] [address] [place] [address] Care Team Providers Care Skid Worker Name Role Phone HangChintan oliveira Joshua CALABRESE Primary Care Provider [phone] Encounter Details Date Type Department Care Team (Latest Contact Info) Description 05/17/2025 Travel Social History Tobacco Use Types Packs/Day [...] Description 05/25/2025 1:00 PM EDT Hospital Encounter [facility] - Pain Procedures [address] [place] [address] Tyshawn Jacobson MD [address] [place] [address] 05/25/2025 1:00 PM EDT - 05/25/2025 1:07 PM EDT Surgery [facility] - Pain Procedures [address] [place] [address] Tyshawn Jacobson MD [address] [facility] [place] [address] INJECTION BLOCK EPIDURAL CAUDAL STEROID 06/19/2025 10:45 AM EDT Office Visit [facility] [address] [place] [phone] Maciej Roldan PA [address] [place] [address] 06/21/2025 1:00 PM EDT [facility] [address] [place] [phone] Chintan Quinn DO [address] [facility], [facility] [address], [facility] [place] [address] Scheduled Procedures Name Priority Associated Diagnoses Date/Ti me INJECTION BLOCK EPIDURAL CAUDAL STEROID Spinal stenosis of lumbar region with neurogenic claudication 05/25/2025 1:00 PM EDT documented as of this encounter Visit Diagnoses Not on filedocumented in this encounter Additional Health Concerns Assessment Noted Time PHQ-9 Depression Total Score: 0 05/17/20 10:31 AM EDT documented as of this encounter Care Teams Skid Worker Relationship Specialty Start Date End Date Chintan Quinn DO [address] [facility], [address] [place] [address] PCP - General Family Medicine 05/17/25 documented as of this encounter
--- OUTSIDE RECORDS SUMMARY | 2025-05-18 17:42 | XMS_ITS | Encounter Summary ---
Author Organization [facility] Address [address] [email or web address] [place] [address] Care Team Providers Care Outdoor Guide Name Role Phone Idania Gaston DO Primary Care Provider [phone] Encounter Details Date Type Department Care Team (Late st Contact Info) Description 04/20/2025 Abstract [facility] [place] [facility] [address] [facility] [address] [place] [phone] Idania Gaston, [address] [email or web address] [address] [place] [address] Social History Tobacco Use Types Packs/Day Years [...] week 12/05/2024 How often do you attend [facility] or baptism services? 1 to 4 times per year 12/05/2024 Do you belong to any clubs o r organizations such as mandaeism groups, unions, fraternal or athletic groups, or [...] Recorded Patient Health Questionnaire-2 Score 0 10/02/2024 [facility] - Occupational Stress Questionnaire Answer Date [...] any time in the past 12 m [facility], were you homeless or [...] Description 05/22/2025 4:00 PM EDT Office [facility] [address] [place] [address] Idania Gaston DO [address] [place] [address] documented as of this encounter Visit Diagnoses Not on filedocumented in this encounter Care Teams Outdoor Guide Relationship Specialty Start Date End Date Idania Gaston DO [address] [place] [address] PCP - General Family Medicine 09/20/23 documented as of this encounter
--- OUTSIDE RECORDS SUMMARY | 2025-05-18 17:42 | XMS_ITS | Clinical Summary ---
Author Organization [facility] Address [address] [place] [address] Care Team Providers Care Backup Engineer Name Role Phone VandanaastonTesfayeIdania M Primary Care Provider +1- [phone] Allergies Active Allergy Reactions Criticality Noted Date Comments Haloperidol Anxiety Low 09/25/2023 Latex Rash Medium 06/18/2022 Other Reaction(s): Unknown If on for long periods of time [place] Oil GI intolerance Low 06/16/2018 Runny nose, [...] 90 days 023 Active Continuous Blood Gluc Belt Line Feeder (Dexcom G7 Belt Line Feeder) device 1 (one) time each day at [...] Chew 81 mg in the morning. 024 06/22 Active cyanocobalamin (Vitamin B-12) 1000 MCG tablet Daily 024 Active sevelamer carbonate (Renvela) 800 MG tablet TAKE 2 TABLETS BY MOUTH THREE TIMES DAILY WITH MEALS 024 Active Tirzepatide (Mounjaro) 10 MG/0.5ML solution auto-injectorIndicatio ns: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) Inject 10 mg under the skin 1 (one) time per week 6 mL 3 024 Active midodrine (Proamatine) 10 MG tablet TAKE 1 TABLET BY MOUTH NEEDED DURING DIALYSIS FOR BLOOD PRESSURE SUPPORT 025 Active levothyroxine (Synthroid, Levoxyl) 100 MCG [...] NIGHT AT BEDTIME 60 capsule 025 Active insulin glargine (Lantus SoloStar) 100 UNIT/ML penIndications: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) ADMINISTER 50 UNITS UNDER THE SKIN IN THE MORNING 15 mL 025 Active bumetanide (Bumex) 2 MG tabletIndications:End stage renal disease (HCC) TAKE 1 TABLET(2 MG) BY MOUTH DAILY 30 tablet 025 Active insulin glargine (Lantus SoloStar) 100 UNIT/ML penIndications: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) Inject 50 Units under the skin in the morning. 30 mL 3 024 05/16 Discontinued bumetanide (Bumex) 2 MG tabletIndications:End stage renal disease (HCC) Take 1 tablet (2 mg) by mouth Daily 60 tablet 3 025 05/08 Discontinued bumetanide (Bumex) 2 MG tabletIndications:End stage renal disease (HCC) TAKE 1 TABLET(2 MG) BY MOUTH DAILY 90 tablet 025 05/16 Discontinued Active Problems Problem Noted Date Diagnosed Date Venous stasis dermatitis 09/20/2024 Lymphedema 09/20/2024 Chronic kidney disease with end stage renal disease on dialysis due to type 2 diabetes mellitus 10/13/2023 Hx of amputation of lesser toe, left ([facility]) 0 10/02/2023 Assessment & Plan (10/02/2023 9:28 [...] 05/02/2022 02/25/2024 Open wound of left foot 05/02/2022/01/2024 Overview (10/13/2023): s/p surgery and healing; completed healed. 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 09/28/2017 01/07/2024 Encounters Date Type Department Care Team Description 05/16/2025 Refill [facility] [address] [place] [address] Idania Gaston, DO 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); End stage renal disease (HCC) 05/15/2025 Abstract [facility] [address] [place] [address] [phone] Idania Gaston, 05/15/2025 Abstract [facility] [address] [place] [address] Idania Gaston, 05/14/2025 [facility]ill [facility] [address] [place] [address] Idania Gaston, Neuropathy; Type 2 diabetes mellitus with peripheral neuropathy (HCC) 05/07/2025 Refill [facility] [place] [facility] [address] [place] [address] PetIdania louie, DO End stage renal disease (HCC) 04/20/2025 Abstract [facility] [address] [place] [address] PetIdania louie, DO 04/20/2025 Abstract [facility] [address] [place] [address] PetIdania louie M, DO 04/13/2025 Refill [facility] [place] [facility] [address] [place] [address] Idania Gaston, DO Neuropathy; Type 2 diabetes mellitus with peripheral neuropathy (HCC) 04/10/2025 Refill [facility] [address] [place] [address] Elizabeth Garcia MA Neuropathy; Type 2 diabetes mellitus with peripheral neuropathy (HCC) 04/09/2025 Abstract [facility] [address] [place] [address] PetIdania louie, DO 03/27/2025 Abstract [facility] [address] [place] [address] PetIdania louie, DO 03/27/2025 Abstract [facility] [address] [place] [address] PetIdania louie, DO 03/27/2025 Telephone [facility] [place] [facility] [address] [place] [address] Magali Nazario MA Referral 03/26/2025 Abstract [facility] [address] [place] [address] Idania Gaston, DO 03/26/2025 Abstract [facility] [address] [place] [address] Idania Gaston, DO 03/12/2025 Abstract [facility] [address] [place] [address] Idania Gaston, DO 03/07/2025 Abstract [facility] [address] [place] [address] Idania Gaston, DO 03/01/2025 Refill [facility] [address] [place] [address] Idania Gaston, DO 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 1 to 4 times per year 12/05/2024 Do you belong to any clubs o r organizations such as adventism groups, unions, fraternal or athletic groups, or [...] Questionnaire-2 Score 0 10/02/2024 [facility] - Occupational Stress Questionnaire Answer Date [...] any time in the past 12 m [facility], were you homeless or living in [...] 12/05/2024 1:42 PM EDT Plan of Treatment Upcoming Encounters Date Type Department Care Team (Late st Contact Info) Description 05/22/2025 4:00 PM EDT Office Visit [facility] [place] [facility] [address] [place] [address] Idania Gaston, [address] [place] [address] Health Maintenance Due Date Last Done Comments CT Colonography 1971 FIT-DNA 1971 FIT 1970 FOBT 1970 Sigmoidoscopy 1970 Diabetes: Urine Protein Screening 05/19/2022 021 Medicare Annual Wellness (AWV) 09/30/2024 09/30/2023 , 09/30/2023 Diabetes: Hemoglobin A1C 10/11/2024 024, 07/11/2024, 02/25/2024, Additional history exists Diabetes: Retinopathy Screening 01/06/2025 01/07/2024, 12/17/2022, 06/12/2020, Additional history exists Influenza Vaccine (#1) 2025 3, 06/18/2019, 06/29/2014, Additional history exists Colonoscopy 06/20/2034 [...] Narrative 09/03/2022 12:00 PM EST PERFORMED AT [facility] LOCATION:[id number] [facility] Procedure Note CONVERSION, GENERIC - 01/20/2023 PERFORMED AT [facility] LOCATION:[id number] [facility] us Idania Gaston DO ENDOSCOPY PROCEDURE ORDERA BLES Final Result * Microalbumin / creatinine urine ratio (05/19/2021) UCREA 131 39 - 259 [facility] MALB 271.0 [facility] Comment:mALB reference range not established. MICROALB/CREAT RATIO 2,068.7 [facility] 05/19/2021 us Idania Gaston DO LAB URINE ORDERABLES Final Result [facility] from Last 3 Months or Most Recently Relevant to Health Maintenance Insurance [employer] MEDICARE Care Teams Backup Engineer Relationship Specialty Start Date End Date Idania Gaston DO [address] [place] [address] PCP - General Family Medicine 09/20/23
--- OUTSIDE RECORDS SUMMARY | 2025-05-18 17:42 | XMS_ITS | Encounter Summary ---
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 1 to 4 times per year 12/05/2024 Do you belong to any clubs o r organizations such as moravian groups, unions, fraternal or athletic groups, or [...] Health Questionnaire-2 Score 0 10/02/2024 [facility] Occupat ional [facility] - Occupational [...] any time in the past 12 m [place], were you homeless or living in a [...] [address] [place] [address] Idania Gaston DO [address] [place] [address] documented as of this encounter Visit Diagnoses Diagnosis 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) End stage renal disease (HCC) End stage renal disease documented in this encounter Care Teams Band Bias Machine Operator Relationship Specialty Start Date End Date Idania Gaston DO [address] [place] [address] PCP - General Family Medicine 09/20/23 documented as of this encounter
--- OUTSIDE RECORDS SUMMARY | 2025-05-18 17:42 | XMS_ITS | Encounter Summary ---
Author Organization [facility] Address [address] [place] [address] Care Team Providers Care Helper Driver Name Role Phone Idania Gaston DO Primary Care Provider +1- [phone] Encounter Details Date Type Department Care Team (Late st Contact Info) Description 05/15/2025 Abstract [facility] [address] [place] [address] Idania Gaston, [address] [place] [address] Social History Tobacco Use Types Packs/Day Years [...] week 12/05/2024 How often do you attend [facility] or mandaeism services? 1 to 4 times per year 12/05/2024 Do you belong to any clubs o r organizations such as congregation groups, unions, fraternal or athletic groups, or [...] Score 0 10/02/2024 [facility] - Occupational Stress Questionnaire Answer Date [...] [address] [place] [address] Idania Gaston DO [address] [place] [address] documented as of this encounter Visit Diagnoses Not on filedocumented in this encounter Care Teams Helper Driver Relationship Specialty Start Date End Date Idania Gaston DO [address] [place] [address] PCP - General Family Medicine 09/20/23 documented as of this encounter
--- OUTSIDE RECORDS SUMMARY | 2025-05-18 17:42 | XMS_ITS | Encounter Summary ---
Author Organization [facility] Address [address] [facility] [place] [address] Care Team Providers Care Foundry Process Engineer Name Role Phone Idania Gaston DO Primary Care Provider +1- [phone] Reason for Visit * Reason Comments Med Refill Encounter Details Date Type Department Care Team (Late st Contact Info) Description 05/07/2025 [facility] [address] [place] [address] Idania Gaston, [address] [place] [address] End stage renal disease (HCC) Social History [...] week 12/05/2024 How often do you attend [facility] or jainism services? 1 to 4 times per year [...] Recorded Patient Health Questionnaire-2 Score 0 10/02/2024 [facility] Occupat ional [facility] - [...] were you homeless or living in a longterm (including now)? No 12/05/2024 Sex and Gender Information Value Date Recorded Sex Assigned at Not on file Legal Sex Male 7:11 PM EDT Gender Identity Not on file Sexual Orientation Not on file documented as of this encounter Miscellaneous Notes * Telephone Encounter - Melinda Dailey LPN - 05/08/2025 9:15 AM EDT Last ov 12/05/2024 RX sent in per Dr Emerson Pt needs a medicare wellness/diabetes appt. Please schedule. documented in this encounter Plan of Treatment Upcoming Encounters Date Type Department Care Team (Late st Contact Info) Description 05/22/2025 4:00 PM EDT Office Visit [facility] [address] [place] [address] Idania Gaston DO [address] [place] [address] documented as of this encounter Visit Diagnoses Diagnosis End stage renal disease (HCC) End stage renal disease documented in this encounter Care Teams Foundry Process Engineer Relationship Specialty Start Date End Date Idania Gaston DO [address] [place] [address] PCP - General Family Medicine 09/20/23 documented as of this encounter
--- OUTSIDE RECORDS SUMMARY | 2025-05-18 17:42 | XMS_ITS | Encounter Summary ---
Author Organization [facility] Address [address] [facility] [place] [address] Care Team Providers Care Radio Adjuster Name Role Phone Idania Gaston DO Unavailable [phone] Idania Gaston DO Primary Care Provider + [phone] Idania Gaston DO Unavailable [phone] Encounter Details Date Type Department Care Team (Late st Contact Info) Description 10/06/2023 Abstract [facility] [place] [facility] [address] [place] [address] Idania Gaston DO [address] [place] [address] Social History Tobacco Use Types Packs/Day Years [...] 05/22/2025 4:00 PM EDT Office Visit [facility] [address] [place] [address] Idania Gaston, [address] [place] [address] documented as of this encounter Visit Diagnoses Not on filedocumented in this encounter Care Teams Radio Adjuster Relationship Specialty Start Date End Date Idania Gaston, DO [address] [place] [address] PCP - Medical [employer] 02/04/23 11/13/23 Idania Gaston DO [address] [place] [address] PCP - General Family Medicine 09/20/23 Idania Gaston, DO [address] [place] [address] PCP - [facility] 09/06/23 09/05/24 documented as of this encounter
--- OUTSIDE RECORDS SUMMARY | 2025-05-18 17:42 | XMS_ITS | Encounter Summary ---
Author Organization [facility] tem Address [id number] [address] [place] [address] Care Team Providers Care Day Care Home Mother Name Role Phone Idania Gaston DO Primary Care Provider +1- [phone] Encounter Details Date Type Department Care Team (Latest Contact Info) Description 05/10/2025 Travel Social History Tobacco Use Types Packs/Day [...] Description 05/25/2025 1:00 PM EDT Hospital Encounter [facility] [address] [place] [address] Tyshawn Jacobson MD [address] [place] [address] 05/25/2025 1:00 PM EDT - 05/25/2025 1:07 PM EDT Surgery [facility] [address] [place] [address] Tyshawn Jacobson MD [address] [place] [address] INJECTION BLOCK EPIDURAL CAUDAL STEROID 06/19/2025 10:45 AM EDT Office Visit [facility] [address] [place] [address] Maciej Roldan PA [address] [facility], [address] [place] [address] 06/21/2025 1:00 PM EDT Office Visit [facility] Family Medicine [address] [place] [address] [place] [address] Chintan Quinn, [address] [place] [address], [facility] [address], [address] [place], [place] [address] Scheduled Procedures Name Priority Associated Diagnoses Date/Ti me INJECTION BLOCK EPIDURAL CAUDAL STEROID Spinal stenosis of lumbar region with neurogenic claudication 05/25/2025 1:00 PM EDT documented as of this encounter Visit Diagnoses Not on filedocumented in this encounter Care Teams Day Care Home Mother Relationship Specialty Start Date End Date Idania Gaston DO [address] [place] [address] PCP - General 06/15/18 05/16/25 documented as of this encounter
--- OUTSIDE RECORDS SUMMARY | 2025-05-18 17:42 | XMS_ITS | Encounter Summary ---
Author Organization [facility] Address [address] [place] [address] Care Team Providers Care Heavy Threader Name Role Phone Idania Gaston DO Unavailable [phone] Idania Gaston DO Primary Care Provider + [phone] Idania Gaston DO Unavailable [phone] Encounter Details Date Type Department Care Team (Late st Contact Info) Description 10/18/2023 External Result Encounter [facility] External Department Unsolicited Flakito High, DO [address] [facility] [address] [place] [address] Social History Tobacco Use Types Packs/Day Years [...] [address] [place] [address] Idania Gaston DO [address] [place] [address] documented as of this encounter Procedures Procedure Name Priority Date/Time Associated Diagnosis Comments ECG 12-LEAD 10/18/2023 7:16 AM EST documented in this encounter Results * ECG 12 lead (10/18/2023 7:16 AM EST) 10/18/2023 7:16 AM EST Narrative [facility] - 10/18/2023 10:49 AM EST [facility] Main [address] [address] Electrocardiograph Report Signed Patient: Mina Forte MR#: [id number] : 1970 Acct:[id number] Age/Sex: 53 / M ADM Date: 10/18/23 Loc: Room: Type: [facility] Attending Dr: Flakito High DO Ordering Provider: [...] change was found Confirmed by Pedro Marroquin ([id number]) on 10/18/2023 10:49:16 AM Referred By: JAMARCUS HIGH Electronically Signed By:Pedro Marroquin Transcribed By: MUS Signed By Pedro Marroquin MD 10/18/23 1049 Procedure Note Ila Marroquin MD - 10/18/2023 [facility] Main [place] [address] [place] [address] Electrocardiograph Report Signed Patient: Mina Forte BMR#: [id number] : 1970Acct:[id number] Age/Sex: 53 / MADM Date: 10/18/23 Loc: Room:Type: [facility] Attending Dr: Flakito High DO Ordering Provider: [...] change was found Confirmed by Pedro Marroquin ([id number]) on 10/18/2023 10:49:16 AM Referred By: JAMARCUS HIGH Electronically Signed By:Dionte Transcribed By: MUS Signed By Pedro Marroquin MD 10/18/23 1049 us Flakito High DO ECG ORDERABLES Final Result Performing Organization Address City/State/[facility] Co de Phone Number [address] [address], documented in this encounter Visit Diagnoses Not on filedocumented in this encounter Care Teams Heavy Threader Relationship Specialty Start Date End Date Idania Gaston DO [address] [place] [address] PCP - Medical [employer] 02/04/23 11/13/23 Idania Gaston DO [address] [place] [address] PCP - General Family Medicine 09/20/23 Idania Gaston DO [address] [place] [address] PCP - [facility] 09/06/23 09/05/24 documented as of this encounter
--- OUTSIDE RECORDS SUMMARY | 2025-05-18 17:42 | XMS_ITS | Encounter Summary ---
Author Organization [facility] Address [address] [place] [address] Care Team Providers Care Fitness Teacher Name Role Phone Idania Gaston DO Primary Care Provider +- [phone] Idania Gaston DO Unavailable [phone] Encounter Details Date Type Department Care Team (Late st Contact Info) Description 11/24/2023 Abstract [facility] [address] [facility] [address] [place] [address] Idania Gaston, DO [address] [facility] [address] [place] [address] Social History Tobacco Use Types Packs/Day Years [...] [address] [place] [address] Idania Gaston DO [address] [place] [address] documented as of this encounter Visit Diagnoses Not on filedocumented in this encounter Care Teams Fitness Teacher Relationship Specialty Start Date End Date Idania Gaston DO [address] [place] [address] PCP - General Family Medicine 09/20/23 Idania Gaston DO [address] [place] [address] PCP - [facility] 09/06/23 09/05/24 documented as of this encounter
--- OUTSIDE RECORDS SUMMARY | 2025-05-18 17:42 | XMS_ITS | Encounter Summary ---
Author Organization [facility] Address [address] [place] [address] Care Team Providers Care Children'S Program Coordinator Name Role Phone Idania Gaston DO Primary Care Provider [phone]- [phone] Marilin Idania Mcfarlane DO Unavailable [phone] Encounter Details Date Type Department Care Team (Late st Contact Info) Description 11/23/2023 External Result Encounter [facility] External Department Unsolicited Diamante Mondragon, DPM [address] [place] [address] Social History Tobacco Use Types Packs/Day Years [...] 4:00 PM EDT Office Visit [facility] [address] [place] [address] Idania Gaston DO [address] [place] [address] documented as of this encounter Procedures Procedure [...] Ramirez Guadarrama M.D.11/23/2023 3:35 PM Dictation Location: [facility] Transcribed By: [facility] 11/23/23 1535 Dictated By: Ramirez Guadarrama DO 11/23/23 1529 Signed By: <Electronically signed by Ramirez Guadarrama DO in OV> 11/23/23 1535 Narrative 11/23/2023 3:38 PM EDT [facility] Main [place] [address] [place] [id number] MRI Report Signed Patient: Mina Forte MR#: [id number] : 1970 Acct:[id number] Age/Sex: 53 / M ADM Date: 11/20/23 Loc: Room: [address] [place] [address] Type: ADM IN Attending Dr: Amy Escudero [...] RT wo con Procedure Note Radiology, Radiologist, - 11/23/2023 [facility] Main [place] [address] [place] [address] MRI Report Signed Patient: Mina Forte BMR#: [id number] : 1970Acct:[id number] Age/Sex: 53 / MADM Date: 11/20/23 Loc: Room: [id number]: ADM IN Attending Dr: Amy Escudero DO [...] Ramirez Guadarrama M.D.11/23/2023 3:35 PM Dictation Location: [facility]- Transcribed By: [facility] 11/23/23 1535 Dictated By: Ramirez Guadarrama DO 11/23/23 1529 Signed By: <Electronically signed by Ramirez Guadarrama DO in OV> 11/23/23 1535 us Diamante Mondragon DPM IMG MRI PROCEDURES Final R esult documented in this encounter Visit Diagnoses Not on filedocumented in this encounter Care Teams Children'S Program Coordinator Relationship Specialty Start Date End Date Idania Gaston DO [address] [place] [address] PCP - General Family Medicine 09/20/23 Idania Gaston DO [address] [place] [address] PCP - [facility] 09/06/23 09/05/24 documented as of this encounter
--- OUTSIDE RECORDS SUMMARY | 2025-05-18 17:42 | XMS_ITS | Encounter Summary ---
Author Organization [facility] Address [address] [place] [address] Care Team Providers Care Flatbed Press Operator Name Role Phone Idania Gaston DO Primary Care Provider +- [phone] Idania Gaston DO Unavailable Encounter Details Date Type Department Care Team (Late st Contact Info) Description 11/22/2023 Abstract [facility] [place] [facility] [address] [facility] [address] [place] [address] Idania Gaston, DO [address] [facility] [address] [place] [address] Social History Tobacco Use Types Packs/Day Years [...] [address] [place] [address] Idania Gaston DO [address] [place] [address] documented as of this encounter Visit Diagnoses Not on filedocumented in this encounter Care Teams Flatbed Press Operator Relationship Specialty Start Date End Date Idania Gaston DO [address] [place] [address] PCP - General Family Medicine 09/20/23 Idania Gaston DO [address] [place] [address] PCP - [facility] 09/06/23 09/05/24 documented as of this encounter
--- OUTSIDE RECORDS SUMMARY | 2025-05-18 17:42 | XMS_ITS | Encounter Summary ---
Author Organization [facility] Address [address] [place] [address] Care Team Providers Care Counselling Psychologist Name Role Phone Idania Gaston DO Primary Care Provider +- [phone] Idania Gaston DO Unavailable [phone] Encounter Details Date Type Department Care Team (Late st Contact Info) Description 12/27/2023 Abstract [facility] [address] [facility] [address] [place] [address] Idania Gaston, DO [address] [facility] [address] [place] [address] Social History Tobacco Use Types Packs/Day Years [...] [address] [place] [address] Idania Gaston DO [address] [place] [address] documented as of this encounter Visit Diagnoses Not on filedocumented in this encounter Care Teams Counselling Psychologist Relationship Specialty Start Date End Date Idania Gaston DO [address] [place] [address] PCP - General Family Medicine 09/20/23 Idania Gaston DO [address] [place] [address] PCP - [facility] 09/06/23 09/05/24 documented as of this encounter
--- OUTSIDE RECORDS SUMMARY | 2025-05-18 17:42 | XMS_ITS | Encounter Summary ---
Author Organization [facility] Address [address] [facility] [place] [address] Care Team Providers Care Employee Communications Coordinator Name Role Phone Idania Gaston DO Primary Care Provider [phone] Encounter Details Date Type Department Care Team (Late st Contact Info) Description 05/15/2025 Abstract [facility] [address] [place] [address] Idania Gaston, [address] [facility] [address] [place] [address] Social History Tobacco Use Types Packs/Day Years [...] 12/05/2024 How often do you attend [facility] or sabianist services? 1 to 4 times per year 12/05/2024 Do you belong to any clubs o r organizations such as amish groups, unions, fraternal or athletic groups, or [...] Recorded Patient Health Questionnaire-2 Score 0 10/02/2024 [facility] - Occupational Stress Questionnaire Answer [...] [address] [place] [address] Idania Gaston DO [address] [place] [address] documented as of this encounter Visit Diagnoses Not on filedocumented in this encounter Care Teams Employee Communications Coordinator Relationship Specialty Start Date End Date Idania Gaston DO [address] [place] [address] PCP - General Family Medicine 09/20/23 documented as of this encounter
--- OUTSIDE RECORDS SUMMARY | 2025-05-18 17:42 | XMS_ITS | Encounter Summary ---
Author Organization [facility] Address [address] [place] [address] Care Team Providers Care Site Acquisition Manager Name Role Phone Idania Gaston DO Primary Care Provider +- [phone] Idania Gaston DO Unavailable [phone] Encounter Details Date Type Department Care Team (Late st Contact Info) Description 11/26/2023 Abstract [facility] [address] [facility] [address] [place] [address] Idania Gaston, DO [address] [facility] [address] [place] [address] Social History Tobacco Use Types Packs/Day Years [...] [address] [place] [address] Idania Gaston DO [address] [place] [address] documented as of this encounter Visit Diagnoses Not on filedocumented in this encounter Care Teams Site Acquisition Manager Relationship Specialty Start Date End Date Idania Gaston DO [address] [place] [address] PCP - General Family Medicine 09/20/23 Idania Gaston DO [address] [place] [address] PCP - [facility] 09/06/23 09/05/24 documented as of this encounter
--- OUTSIDE RECORDS SUMMARY | 2025-05-18 17:42 | XMS_ITS | Encounter Summary ---
Author Organization [facility] Address [address] [place] [address] Care Team Providers Care Land Inspector Name Role Phone Idania Gaston DO Unavailable [phone] Idania Gaston DO Primary Care Provider + [phone] Idania Gaston DO Unavailable [phone] Encounter Details Date Type Department Care Team (Late st Contact Info) Description 10/27/2023 Abstract [facility] [address] [facility] [address] [place] [address] Idania Gaston DO [address] [place] [address] Social History Tobacco Use Types Packs/Day Years [...] [address] [place] [address] Idania Gaston DO [address] [place] [address] documented as of this encounter Visit Diagnoses Not on filedocumented in this encounter Care Teams Land Inspector Relationship Specialty Start Date End Date Idania Gaston, [address] [place] [address] PCP - [facility] 02/04/23 11/13/23 Idania Gaston DO [address] [place] [address] PCP - General Family Medicine 09/20/23 Idania Gaston, DO [address] [place] [address] PCP - [facility] 09/06/23 09/05/24 documented as of this encounter
--- OUTSIDE RECORDS SUMMARY | 2025-05-18 17:42 | XMS_ITS | Encounter Summary ---
Author Organization [facility] Address [address] [facility] [place] [address] Care Team Providers Care Marketing Forecaster Name Role Phone Idania Gaston DO Primary Care Provider [phone] Encounter Details Date Type Department Care Team (Late st Contact Info) Description 04/20/2025 Abstract [facility] [address] [facility] [address] [place] [address] Idania Gaston, [address] [facility] [address] [place] [address] Social History Tobacco Use Types Packs/Day Years [...] week 12/05/2024 How often do you attend [facility] or episcopalian services? 1 to 4 times per year [...] Recorded Patient Health Questionnaire-2 Score 0 10/02/2024 [facility] - Occupational Stress Questionnaire Answer [...] any time in the past 12 m [facility], were you homeless or living in a half-way (including now)? No 12/05/2024 Sex and Gender [...] [address] [place] [address] Idania Gaston DO [address] [place] [address] documented as of this encounter Visit Diagnoses Not on filedocumented in this encounter Care Teams Marketing Forecaster Relationship Specialty Start Date End Date Idania Gaston DO [address] [place] [address] PCP - General Family Medicine 09/20/23 documented as of this encounter
--- OUTSIDE RECORDS SUMMARY | 2025-05-18 17:42 | XMS_ITS | Clinical Summary ---
Author Organization [facility] Address [address] [place], [place] [id number] Care Team Providers Care Exceptional Children Teacher Name Role Phone Idania Gaston Primary Care [...] 2) 2021 Influenza Vaccine (#1) 2025 Insurance [facility] PPO Care Teams Exceptional Children Teacher Relationship Specialty Start Date End Date Marilin Idaniakavita Rodriguez PCP - General Unspecified 07/08/12
--- OUTSIDE RECORDS SUMMARY | 2025-05-18 17:42 | XMS_ITS | Encounter Summary ---
Author Organization [facility] Address [address] [place] [address] Care Team Providers Care Development Editor Name Role Phone Idania Gaston DO Primary Care Provider [phone]- [phone] Encounter Details Date Type Department Care Team (Late st Contact Info) Description 02/06/2025 Abstract [facility] [address] [facility] [address] [place] [address] Idania Gaston, [address] [place] [address] Social History Tobacco Use Types Packs/Day Years [...] How often do you attend [facility] or confucianist services? 1 to 4 times per year [...] Recorded Patient Health Questionnaire-2 Score 0 10/02/2024 [facility] - Occupational Stress Questionnaire Answer Date [...] any time in the past 12 m [facility], were you homeless or [...] [address] [place] [address] Idania Gaston DO [address] [place] [address] documented as of this encounter Visit Diagnoses Not on filedocumented in this encounter Care Teams Development Editor Relationship Specialty Start Date End Date Idania Gaston DO [address] [place] [address] PCP - General Family Medicine 09/20/23 documented as of this encounter
--- OUTSIDE RECORDS SUMMARY | 2025-05-18 17:42 | XMS_ITS | Encounter Summary ---
Author Organization [facility] Address [address] [place] [address] Care Team Providers Care Certified Adapted Physical Educator Name Role Phone Idania Gaston DO Primary Care Provider +- [phone] Idania Gaston DO Unavailable [phone] Encounter Details Date Type Department Care Team (Late st Contact Info) Description 11/22/2023 Abstract [facility] [address] [facility] [address] [place] [address] Idania Gaston, DO [address] [facility] 230 [place] [address] Social History Tobacco Use Types Packs/Day Years [...] [address] [place] [address] Idania Gaston DO [address] [place] [address] documented as of this encounter Visit Diagnoses Not on filedocumented in this encounter Care Teams Certified Adapted Physical Educator Relationship Specialty Start Date End Date Idania Gaston DO [address] [place] [address] PCP - General Family Medicine 09/20/23 Idania Gaston DO [address] [place] [address] PCP - [facility] 09/06/23 09/05/24 documented as of this encounter
--- OUTSIDE RECORDS SUMMARY | 2025-05-18 17:42 | XMS_ITS | Encounter Summary ---
Author Organization [facility] Address [address] [place] [address] Care Team Providers Care Digital Strategist Name Role Phone Idania Gaston DO Primary Care Provider [phone]- [phone] Reason for Visit * Reason Comments Med Refill Encounter Details Date Type Department Care Team (Late st Contact Info) Description 11/01/2024 [facility]ill [facility] [address] [place] [address] Idania Gaston DO [address] [facility] [address] [place] [address] Acquired hypothyroidism Social History Tobacco Use Types [...] 05/22/2025 4:00 PM EDT Office Visit [facility] [address] [facility] 230 [place] [address] Idania Gaston DO [address] [facility] 230 [place] [address] documented as of this encounter Visit Diagnoses Diagnosis Acquired hypothyroidism Unspecified hypothyroidism documented in this encounter Care Teams Digital Strategist Relationship Specialty Start Date End Date Idania Gaston DO [address] [facility] 230 [place] [address] PCP - General Family Medicine 09/20/23 documented as of this encounter
--- OUTSIDE RECORDS SUMMARY | 2025-05-18 17:42 | XMS_ITS | Encounter Summary ---
Author Organization [facility] Address [address] [place] [address] Care Team Providers Care Pattern Designer Name Role Phone Idania Gaston DO Primary Care Provider +- [phone] Idania Gaston DO Unavailable [phone] Encounter Details Date Type Department Care Team (Late st Contact Info) Description 06/23/2024 Abstract [facility] [address] [facility] [address] [place] [address] Idania Gaston, DO [address] [facility] 230 [place] [address] Social History Tobacco Use Types Packs/Day Years [...] [address] [place] [address] Idania Gaston DO [address] [place] [address] documented as of this encounter Visit Diagnoses Not on filedocumented in this encounter Care Teams Pattern Designer Relationship Specialty Start Date End Date Idania Gaston DO [address] [place] [address] PCP - General Family Medicine 09/20/23 Idania Gaston DO [address] [place] [address] PCP - [facility] 09/06/23 09/05/24 documented as of this encounter
--- OUTSIDE RECORDS SUMMARY | 2025-05-18 17:42 | XMS_ITS | Encounter Summary ---
Author Organization [facility] Address [address] [place] [address] Care Team Providers Care Range Master Name Role Phone Idania Gaston DO Primary Care Provider [phone]- [phone] Reason for Visit * Reason Comments Med Refill Encounter Details Date Type Department Care Team (Late st Contact Info) Description 05/14/2025 Refill [facility] [address] [facility] [address] [place] [address] Idania Gaston, [address] [facility] [address] [place] [address] Neuropathy; Type 2 diabetes mellitus with peripheral [...] week 12/05/2024 How often do you attend [facility] or tenriism services? 1 to 4 times per year [...] Recorded Patient Health Questionnaire-2 Score 0 10/02/2024 [facility] - Occupational Stress Questionnaire Answer Date [...] were you homeless or living in a usp (including now)? No 12/05/2024 Sex and Gender Information Value Date Recorded Sex Assigned at Not on file Legal Sex Male 7:11 PM EDT Gender Identity Not on file Sexual Orientation Not on file documented as of this encounter Miscellaneous Notes * Telephone Encounter - Megan Peralta - 05/15/2025 11:49 AM EDT Lvm for patient to c/b and schedule appointment per request from provider. * Telephone Encounter - Idania Gaston DO - 05/15/2025 10:15 AM EDT Pt needs an appt and was notified before that he needs an appt but he never made one or came in. Hehas been to multiple different ER's over the last couple of months. Will not fill rx until pt is seen. * Telephone Encounter - Melinda Dailey LPN - 05/15/2025 10:07 AM EDT Last ov 12/05/2024 documented in this encounter Plan of Treatment Upcoming Encounters Date Type Department Care Team (Late st Contact Info) Description 05/22/2025 4:00 PM EDT Office Visit [facility] [address] [place] [address] Idania Gaston DO [address] [place] [address] documented as of this encounter Visit Diagnoses Diagnosis Neuropathy Mononeuritis of unspecified site Type 2 diabetes mellitus with peripheral neuropathy (HCC) documented in this encounter Care Teams Range Master Relationship Specialty Start Date End Date Idania Gaston DO [address] [place] [address] PCP - General Family Medicine 09/20/23 documented as of this encounter
--- OUTSIDE RECORDS SUMMARY | 2025-05-18 17:42 | XMS_ITS | Encounter Summary ---
Author Organization [facility] Address [address] [place] [address] Care Team Providers Care Executive Consultant Name Role Phone Idania Gaston DO Primary Care Provider + [phone] Ignacio Clay MD Unavailable [phone] Adams Tate CNP Unavailable [phone] Delano Bardales MD Unavailable Sivan Keller MD Unavailable [phone] Desire Bueno CNP Unavailable Unavailabl e Encounter Details Date Type Department Care Team (Late st Contact Info) Description 05/11/2025 Telephone [facility] Transplant [address] [place] [address] Melinda Hidalgo, JACOB Social History Tobacco Use Types Packs/Day Years Used Date Smoking Tobacco: Never Smokeless Tobacco: Current Chew Last attempted to quit: 07/2022 Comments:Check status Alcohol Use Standard Drinks/Week Comments Not Currently 0 (1 standard drink = 0.6 oz pure alcohol) Previous occasional use - rare / once per year [facility] Utilities Answer Date Recorded In the past 12 months has [facility] [place], gas, oil, or water [employer] threatened to shut off services in your [...] any time in the past 12 m [facility], were you homeless or living in a retirement (including now)? No 09/12/2024 Hunger Vital Sign [...] Miscellaneous Notes * Telephone Encounter - Melinda Hidalgo RN - 05/11/2025 11:40 AM EDT TC contacted patient for update on work up. Patient states still working on dental, pain management, podiatry, and hem/onc. Patient informed he will need to be seen for re-evaluation in July, and cardiac will need to beupdated in July. Patient states understanding and will keep TC updated. Melinda Hidalgo, RN documented in this encounter Plan of Treatment Upcoming Encounters Date Type Department Care Team (Late st Contact Info) Description 05/24/2025 7:00 AM EDT Appointment [facility] CT Imaging [address] [place] [address] documented as of this encounter Visit Diagnoses Not on filedocumented in this encounter Care Teams Executive Consultant Relationship Specialty Start Date End Date Idania Gaston DO [address] [place] [address] PCP - General 04/29/22 Ignacio Clay MD [address] [place] [address] [address] [place] [phone] Consulting Physician Transplant Surgery 05/02/22 Adams Tate, REGIONAL SALES REPRESENTATIVE [address] [place] [address] [address] [place] [address] Nurse Practitioner Urology 03/01/23 Dealno Bardales MD [address] [place] [address] Consulting Physician Urology 07/06/23 Sivan Keller MD [address] [place] [address] Consulting Physician Hematology and Oncology 08/22/24 Desire Bueno CNP [address] [place] [address] Nurse Practitioner Hematology and Oncology 12/21/24 documented as of this encounter
--- OUTSIDE RECORDS SUMMARY | 2025-05-18 17:42 | XMS_ITS | Encounter Summary ---
Author Organization [facility] [email or web address] [facility] tem Address [id number] [address] [place] [address] Care Team Providers Care Beekeeper Farmer Name Role Phone Chintan Quinn DO Primary Care Provider [phone] Encounter Details Date Type Department Care Team (Late st Contact Info) Description 05/11/2025 Telephone [facility] [address] [place] [address] Maciej Roldan PA [address] [place], [place] [address] Social History Tobacco Use Types Packs/Day Years [...] encounter Miscellaneous Notes * Telephone Encounter - Lyric Jason - 05/11/2025 1:10 PM EDT Pts. called in to inform office that patient has been in extreme pain. She usually attends appointments with him but was not able to come to last OV 05/10. Pts states that patients pain is non stop, he is not able to sleep most nights and has had to cx or leave his dialysis appointments early due to the pain. Pt was prescribed nortriptyline however states pt is not getting any relief from this. Pt forgot to mention this at ov on 05/10. Pt is scheduled to have Caudal on 05/25 Any other thoughts or suggestions as to what patient can do for pain? * Telephone Encounter - KAREN Rubalcava - 05/11/2025 1:10 PM EDT Not much else to do right now other than wait for caudal and qutenza. * Telephone Encounter - Justine Vargas RN - 05/11/2025 1:10 PM EDT On 05/15/2025 I attempted to initiate another Qutenza PA, it was canceled as a denial was previously in place. Called , no answer. LM with providers response on her voicemail. documented in this encounter Plan of Treatment Upcoming Encounters Date Type Department Care Team (Latest Contact Info) Description 05/25/2025 1:00 PM EDT Hospital Encounter [facility] - Pain Procedures [address] [place] [address] Tyshawn Jacobson MD [address] [place], [place] [id number] 05/25/2025 1:00 PM EDT - 05/25/2025 1:07 PM EDT Surgery [facility] [address] [place] [address] Tyshawn Jacobson MD [address] [place] [address] INJECTION BLOCK EPIDURAL CAUDAL STEROID 06/19/2025 10:45 AM EDT Office Visit [facility] [address] [place] [address] Maciej Roldan PA [address] [facility], [address] [place] [address] 06/21/2025 1:00 PM EDT Office Visit [facility] [address] [place] [phone] Chintan Quinn DO [address] [facility], [facility] [address], [place], [place] [phone] Scheduled Procedures Name Priority Associated Diagnoses Date/Ti me INJECTION BLOCK EPIDURAL CAUDAL STEROID Spinal stenosis of lumbar region with neurogenic claudication 05/25/2025 1:00 PM EDT documented as of this encounter Visit Diagnoses Not on filedocumented in this encounter Care Teams Beekeeper Farmer Relationship Specialty Start Date End Date Chintan Quinn DO [address] [facility], [facility], [facility] [place], [place] [address] PCP - General Family Medicine 05/17/25 documented as of this encounter
--- OUTSIDE RECORDS SUMMARY | 2025-05-18 17:42 | XMS_ITS | Encounter Summary ---
Author Organization [facility] Address [address] [place] [address] Care Team Providers Care Credit Report Checker Name Role Phone Idania Gaston DO Primary Care Provider [phone] Encounter Details Date Type Department Care Team (Late st Contact Info) Description 09/22/2024 Abstract [facility] [address] [place] [address] Idania Gaston, DO [address] [place] [address] Social History Tobacco Use Types Packs/Day Years [...] [address] [place] [address] Idania Gaston DO [address] [facility] [address] [place] [address] documented as of this encounter Visit Diagnoses Not on filedocumented in this encounter Care Teams Credit Report Checker Relationship Specialty Start Date End Date Idania Gaston DO [address] [facility] [address] [place] [address] PCP - General Family Medicine 09/20/23 documented as of this encounter
--- OUTSIDE RECORDS SUMMARY | 2025-05-18 17:42 | XMS_ITS | Encounter Summary ---
Author Organization [facility] tem Address [facility] [id number] [address] [place] [address] Care Team Providers Care Research Laboratory Technician Name Role Phone Chintan Quinn DO Primary Care Provider [phone] Encounter Details Date Type Department Care Team (Late st Contact Info) Description 04/27/2025 Results Follow-Up [facility] - Pain Procedures [address] [place] [phone] Tyshawn Jacobson MD [address], [place] [phone] Bedside Glucose *Place/Obtain serum glucose if >500 per glucometer. Social History Tobacco Use Types Packs/Day Years [...] Description 05/25/2025 1:00 PM EDT Hospital Encounter [facility] - Pain Procedures [address] [place] [address] Tyshawn Jacobson MD [address] [place] [address] 05/25/2025 1:00 PM EDT - 05/25/2025 1:07 PM EDT Surgery [facility] - Pain Procedures [address] [place] [address] Tyshawn Jacobson MD [address] [place] [address] INJECTION BLOCK EPIDURAL CAUDAL STEROID 06/19/2025 10:45 AM EDT Office Visit [facility] Management [facility] [address] [place] [phone] Maciej Roldan PA [address] [facility], 2nd [place] [address] 06/21/2025 1:00 PM EDT Office Visit [facility] [address] [place] [address] [place] [phone] Chintan Quinn DO [address] [facility] [address], [address] [place], [place] [phone] Scheduled Procedures Name Priority Associated Diagnoses Date/Ti me INJECTION BLOCK EPIDURAL CAUDAL STEROID Spinal stenosis of lumbar region with neurogenic claudication 05/25/2025 1:00 PM EDT documented as of this encounter Visit Diagnoses Not on filedocumented in this encounter Care Teams Research Laboratory Technician Relationship Specialty Start Date End Date Chintan Quinn DO 605 [facility] [address], [place] [address] PCP - General Family Medicine 05/17/25 documented as of this encounter
--- OUTSIDE RECORDS SUMMARY | 2025-05-18 17:43 | XMS_ITS | Clinical Summary ---
Author Organization [employer] tem Address [id number] [address] [place] [address] Care Team Providers Care Manufacturers Representative Name Role Phone Chintan Quinn DO Primary Care Provider Allergies Active Allergy Reactions Criticality Noted Date Comments Adhesive Tape-Silicones Rash Medium 06/18/2022 Haloperidol Anxiety Low 09/25/2023 Latex Rash Medium 06/18/2022 If on for long periods of time Other Reaction(s): Unknown If on for long periods of time [place] Abdominal Pain Low 06/16/2018 Runny nose, watery eyes Vancomycin Hives 02/28/2023 Medications lisinopril (PRINIVIL,ZEST RIL) 10 mg tablet Take 1 tablet (10 [...] capsule (150 mg total) before bedtime. Active aspirin 81 mg chewable tablet Chew 1 tablet (81 mg total) and swallow in the morning. 4 06/22/20 25 Active calcitrioL (ROCALTROL) 0.25 MCG capsule Take 1 capsule (0.25 mcg total) by mouth. Active NON FORMULARY Take 1 mg by mouth in the morning. Med Name: anaotrozole . Active nortriptyline (PAMELOR) 25 mg capsule Take 1 capsule (25 mg total) by mouth nightly. 30 capsule 1 5 Active bumetanide (BUMEX) 1 mg tablet Take 2 tablets (2 mg total) by mouth daily. Active calcium acetate,phosph at bind, (PHOSLO) 667 mg tabletIndicati ons:ESRD (end stage renal disease) on dialysis ([facility]) Take 1 tablet (667 mg total) by mouth in the morning and 1 tablet (667 mg total) at noon and 1 tablet (667 mg total) in the evening. Take with meals. 5 Active carvediloL (COREG) 12.5 mg tablet Take 1 tablet (12.5 mg total) by mouth in the morning and 1 tablet (12.5 mg total) in the evening. Take with meals. Active insulin glargine (LANTUS) 100 unit/mL injection Inject 0.6 mL (60 Units total) under the skin in the morning. Active insulin lispro protamin-lispr o (HumaLOG Mix 50-50 KwikPen) 100 unit/mL (50-50) insulin pen 100u am 90u at dinnertime Active midodrine (PROAMATINE) 2.5 mg tablet Take 4 tablets (10 mg total) by mouth daily as needed (low BP on dialysis). Active sevelamer (RENVELA) 800 mg tabletIndicati ons:ESRD (end stage renal disease) on dialysis ([facility]) Take 2 tablets (1,600 mg total) by mouth in the morning and 2 tablets (1,600 mg total) at noon and 2 tablets (1,600 mg total) in the evening. Take with meals. Active divalproex (DEPAKOTE) 125 mg EC tabletIndicati ons:Neuropathi c pain of both feet Take 1 tablet (125 mg total) by mouth nightly for 14 days, THEN 2 tablets (250 mg total) nightly for 14 days. 42 tablet 5 06/14/20 25 Active gabapentin (NEURONTIN) 100 mg capsule Take 2 capsules (200 mg total) by mouth in the morning and 2 capsules (200 mg total) at noon and 2 capsules (200 mg total) in the evening and 2 capsules (200 mg total) before bedtime. 05/17/20 25 Discontin ued(Thera py completed ) insulin lispro protamin-lispr o (HumaLOG Mix 50-50 KwikPen) 100 unit/mL (50-50) insulin pen Inject under the skin in the morning and in the evening. Inject before meals. 100u am 90u at dinnertime. 05/17/20 25 Discontin ued(Reord er) bumetanide (BUMEX) 1 mg tablet Take 2 tablets (2 mg total) by mouth. 05/17/20 25 Discontin ued(Reord er) carvediloL (COREG) 6.25 mg tablet Take 1 tablet (6.25 mg total) by mouth. 05/17/20 25 Discontin ued(Reord er) calcium acetate,phosph at bind, (PHOSLO) 667 mg tablet Take 1 tablet (667 mg total) by mouth. 05/17/20 25 Discontin ued(Reord er) insulin glargine (LANTUS) 100 unit/mL injection Inject 0.6 mL (60 Units total) under the skin. 05/17/20 25 Discontin ued(Reord er) midodrine (PROAMATINE) 2.5 mg tablet Take 4 tablets (10 mg total) by mouth. 05/17/20 25 Discontin ued(Reord er) sevelamer (RENVELA) 800 mg tablet TAKE 2 TABLETS BY MOUTH THREE TIMES DAILY WITH MEALS 4 05/17/20 25 Discontin ued(Reord er) Active Problems Problem Noted Date Diagnosed Date Obesity, morbid 05/17/2025 Type 2 diabetes mellitus wit hout complication, with long-term current use of insulin 05/17/2025 Overview (05/17/2025): Follows with database marketing specialist. Acquired hypothyroidism 05/17/2025 ESRD (end stage renal disease) on dialysis 05/17 Overview (05/17/2025): Dialysis since 2021 on Wednesday, Wednesday, Wednesday at [facility] in [place] Spinal stenosis of lumbar re gion with neurogenic claudication 04/05/2025 Encounters Date Type Department Care Team Description 05/17/2025 10:30 AM EDT Office Visit [facility] Family Medicine [address] [place] [address] [place] [address] Chintan Quinn DO Neuropathic pain of both feet (Primary Dx); Obesity, morbid ([facility]); ESRD (end stage renal disease) on dialysis ([facility]) 05/17/2025 Travel 05/11/[address] [facility] - Pain Management Clinic [address] [place] [address] Maciej Roldan PA 05/10/2025 1:00 PM EDT Office Visit [facility] Management [facility] [address] [place] [phone] Maciej Roldan PA Spinal stenosis of lumbar region with neurogenic claudication (Primary Dx); Diabetic peripheral neuropathy ([facility]) 05/10/2025 Travel 04/27/2025 1:44 PM EDT - 04/27/2025 1:51 PM EDT Surgery [facility] - Pain Procedures [address] [place] [phone] Tyshawn Jacobson MD INJECTION BLOCK EPIDURAL CAUDAL STEROID [70914 (CPT )] 04/27/2025 12:38 PM EDT - 04/27/2025 11:59 PM EDT Hospital Encounter [facility] - Pain Procedures [address] [place] [phone] Tyshawn Jacobson MD Discharge Disposition: Home 04/27/2025 10:30 AM EDT - 04/27/2025 12:37 PM EDT Hospital Encounter [facility] - Radiology [address] [place] [address] Tyshawn Jacobson MD Spinal stenosis, lumbar region with neurogenic claudication Discharge Disposition: Home 04/27/2025 Results Follow-Up [facility] - Pain Procedures [address] [place] [phone] Tyshawn Jacobson MD Bedside Glucose *Place/Obtain serum glucose if >500 per glucometer. 04/10/2025 3:48 PM EDT - 04/10/2025 4:16 PM EDT Emergency [facility] - Emergency [address] [place] [address] Anxiety (Primary Dx) Discharge Disposition: Home 04/10/2025 Travel 04/06/2025 Telephone [facility] [address] [place] [address] Marielos Abreu, life sciences teacher 04/05/2025 10:00 AM EDT Office Visit [facility] [address] [place] [address] Maciej Roldan PA Spinal stenosis of lumbar region with neurogenic claudication (Primary Dx); Diabetic peripheral neuropathy ([facility]) 04/03/2025 Travel 04/03/2025 Orders Only [facility] [address] [facility] [place] [address] Maciej Roldan PA 03/28/2025 11:56 PM EDT - 03/29/2025 12:25 AM EDT Emergency [facility] - Emergency [address] [place] [address] Donnie Fontenot MD Chronic low back pain [...] F) 05/17/2025 10:31 AM EDT Respiratory Rate 20 05/10/2025 1:06 PM EDT Oxygen Saturation 96% 05/17/2025 10: 31 AM EDT Inhaled Oxygen Concentration - - Weight 147.8 kg (325 lb 12.8 oz) 2024 10:31 AM EDT Height 182 cm (5' 11.65 ) 05/17/2025 10 :31 AM EDT Body Mass Index 44.61 05/17/2025 10:31 AM EDT Plan of Treatment Upcoming Encounters Date Type Department Care Team (Latest Contact Info) Description 05/25/2025 1:00 PM EDT Hospital Encounter [facility] - Pain Procedures [address] [place] [phone] Tyshawn Jacobson MD [address] [place], [place] [phone] 05/25/2025 1:00 PM EDT - 05/25/2025 1:07 PM EDT Surgery [facility] - Pain Procedures [address] [place] [address] Tyshawn Jacobson MD [address] [place] [address] INJECTION BLOCK EPIDURAL CAUDAL STEROID 06/19/2025 10:45 AM EDT Office Visit [facility] [address] [place] [address] Maciej Roldan, KAREN [address] [place] [address] 06/21/2025 1:00 PM EDT Office Visit [facility] [address] [place] [phone] Chintan Quinn DO 605 [facility], [address], [place] [address] Scheduled Procedures Name Priority Associated Diagnoses Date/Ti me INJECTION BLOCK EPIDURAL CAUDAL STEROID Spinal stenosis of lumbar region with neurogenic claudication 05/25/2025 1:00 PM EDT Health Maintenance Due Date Last Done Comments Diabetic Ophthalmology Exam 1971 Tobacco Counseling 1971 Adult BMI Follow Up Plan 1989 Diabetic Foot Exam 1989 COVID-19 Vaccine (2024-2 6 season) 2025 08/23/2021, 08/12/2021, 01/23/2021, Additional history exists Influenza Vaccine 05/07/2025 06/20/2024, , 06/22/2022, Additional history exists Adult BMI Screening 05/17/2026 05/17/2025 Depression Screening 05/17/2026 05/17/2025 Tobacco Screening 05/17/2026 05/17/2025 DTaP,Tdap and Td Vaccines (3 - Td or Tdap) 05/01/2031 05/01/2021, 06/06/2010 Zoster (Shingles) Vaccine Completed 01/18/2023, 06/2023 Medical Devices Implanted Type Area Weld Engineer Device Identifier Shelf Expiration Date Model / Serial / Lot Right Foot Procedures Procedure Name Priority Date/Time Associated Diagnosis Comments FL FLUOROSCOPY UP TO 1 HOUR Routine 04/27/2025 1:17 PM EDT Spinal stenosis, lumbar region with neurogenic claudication DC NJX DX/THER SBST INTRLMNR LMBR/SAC W/IMG GDN 04/27/2025 1:10 PM EDT Spinal stenosis of lumbar region with neurogenic claudication Special Needs Diabetic, Left arm AV fistula Latex, Adhesive allergy BEDSIDE GLUCOSE Routine 04/27/2025 12:59 PM EDT from Last 3 Months Results * Fluoroscopy less than one hour (04/27/2025 1:17 PM EDT) Narrative SYSTEMGENERATED, DOCUMENTATION - 04/27/2025 1:17 PM EDT No Reading Required. This procedure does not require a formal dictation. Non-Radiologist provider performed procedures can be reviewed under Post-Op, Procedure or Progress notes. For full report details, please reach out to your physician. Effective 01/21/2021 this image will be visible to you in [employer] Tyshawn Jacobson MD IMG FLUOROSCOPY ORDERABLES Fi nal Result * Bedside Glucose *Place/Obtain serum glucose if >500 per glucometer. (04/27/2025 12:59 PM EDT) Bedside Glucose (POC) 90 65 - 99 mg/dL 04/27/2025 1:03 PM EDT [facility] arterial/capilla ry 04/27/2025 12:59 PM EDT 04/27/2025 1:03 PM EDT us Tyshawn Jacobson MD POINT OF CARE TEST ORDERABLES Final Result [facility] [address] [place] [address], from Last 3 Months Insurance [employer] MEDICARE Care Teams Manufacturers Representative Relationship Specialty Start Date End Date Chintan Quinn DO [address] [place] [address], [facility] [address], [address] [place], [place] [phone] PCP - General Family Medicine 05/17/25
--- OUTSIDE RECORDS SUMMARY | 2025-05-18 17:43 | XMS_ITS | Clinical Summary ---
Author Organization [facility] Address [address] [place] [address] Care Team Providers Care Human Resource Statistician Name Role Phone Idania Gaston DO Primary Care Provider [phone] Ignacio Clay MD Unavailable [phone] [address] Tate JELLY MAKER Unavailable [phone] Delano Bardales MD Unavailable Sivan Keller MD Unavailable [phone] Desire Bueno JELLY MAKER Unavailable Unavailabl e Allergies Active Allergy Reactions Criticality Noted Date Comments Adhesive Rash Low 05/02/2022 Adhesive Tape-Silicones Rash Medium 06/18/2022 Haloperidol Anxiety Low 09/25/2023 Latex Rash Medium 06/18/2022 If on for long periods of time [place] GI intolerance Low 06/16/2018 Runny nose, [...] Act essence ergocalciferol (Vitamin D-2) 1.25 MG (79454 Units) capsule in the morning. Acti ve [...] to your scheduled MRI. Please have a experienced truck driver (do not drive) 1 tablet [...] diabetes mellitus 09/28/2017 04/27/2023 Hypertension, essential 05/03/2017 USP current use of insulin 05/03/2017 Morbid obesity 05/03/2017 Disorder of adrenal gland 02/25/2017 Acquired hypothyroidism 06/11/2015 Glaucoma 06/11/2015 Microalbuminuria 06/11/2015 Polyneuropathy due to type 2 diabetes mellitus 1 Pure hypercholesterolemia 06/11/2015 Encounters Date Type Department Care Team Description 05/11/2025 Telephone [facility] Transplant [address] [place] [address] Melinda Hidalgo, JACOB from Last 3 Months Immunizations Immunization Administration [...] r Relation Name Status Comments Daughter Father iMna gifford Father's Brother Alive Maternal Grandmother Mother [...] use - rare / once per year [facility] Utilities Answer Date Recorded In the past 12 months has th e [facility], gas, oil, or water [place] threatened to shut off services in your [...] in the past 12 m [facility], were you homeless or living in a fci (including now)? No 09/12/2024 Hunger Vital Sign [...] Info) Description 05/24/2025 7:00 AM EDT Appointment [facility] CT Imaging [address] [place] [address] Health Maintenance Due Date Last Done Comments CT Colonography 1971 FIT-DNA 1971 FIT 1971 FOBT 1971 Medicare Annual Wellness (AWV) 1971 Sigmoidoscopy 1971 Diabetes: Retinopathy Screening 1981 Pneumococcal Vaccine: Pediatrics (0 to 5 Years) and At-Risk Patients (6 to 64 Years) (1 of 2 - PCV) 1990 Adult Tetanus 1993 Diabetes: Urine Protein Screening 05/19/2022 05/19/2021 Zoster Vaccines (2 of 2) 01/08/2023 11/13/2022 Diabetes: Hemoglobin A1C 10/11/2024 024, 04/27/2023, 04/27/2023, Additional history exists COVID-19 Vaccine ( season) 2025 08/12/2021, 08/11/2021, 01/23/2021, Additional history exists Influenza Vaccine (#1) 2025 3, 06/18/2019, 06/17/2019, Additional history exists Depression Screening 12/21/2025 12/21/2024 Colonoscopy 09/03/2032 09/03/2022, 08/07, 06/18/2022 Colorectal Cancer Screening 09/03/2032 Hepatitis B Vaccines Completed 04/20/2025, 03/19/2025, 08/28/2024, Additional history exists HIB Vaccines Aged Out [...] 11:22 AM EST End stage renal disease ([facility]) Hypertension, essential Pre-transplant evaluation for kidney transplant Type 2 diabetes mellitus with chronic kidney disease on chronic dialysis, unspecified whether meterman insulin use ([facility]) DIAGNOSTIC COLONOSCOPY Routine 09/03/2022 9:29 AM EST Screen for colon cancer from Last 3 Months or Most Recently Relevant to Health Maintenance Results * (ABNORMAL) Hemoglobin A1c (07/11/2024 11:22 AM EST) Hemoglobin A1C 7.4(H) 4.0 - 6.0 % 07/12/2024 8:04 AM EST [facility] ([place]) Estimated Average Glucose 166 mg/dL 07/12/2024 8:04 AM EST [facility] ([place]) Blood Venous blood specimen / Unknown Venipuncture / Unknown 07/11/2024 11:22 AM EST 07/11/2024 11:48 AM EST Brian Cabrera MD LAB BLOOD ORDERABLES Final Re sult [facility] ([place]) [address] [place], [place] [id number] * Colonoscopy (09/03/2022 9:29 AM EST) Anatomical [...] tolerated the procedure well without immediate complication. [place] bowel prep score; right colon 1, transverse [...] Maintenance Insurance [employer] MEDICARE MEDICAID [place] [employer] [place] [address] [employer] MEDICARE MEDICAID [place] [employer] Advance Directives * Full Code (Latest Code Status on File) Date Activated Date Inactivated Comments 08/22/2024 2:50 PM 08/22/2024 8:11 PM Care Teams Human Resource Statistician Relationship Specialty Start Date End Date Idania Gaston DO [address] [place] [address] PCP - General 04/29/22 Ignacio Clay MD [address] [place] [address] [address] [place] [address] Consulting Physician Transplant Surgery 05/02/22 Adams Tate, JELLY MAKER [address] [place] [address] [address] [place] [address] Nurse Practitioner Urology 03/01/23 Delano Bardales MD [address] [place] [address] [place] [address] Consulting Physician Urology 07/06/23 Sivan Keller MD [address] [place] [address] Consulting Physician Hematology and Oncology 08/22/24 Desire Bueno CNP [address] [place] [address] Nurse Practitioner Hematology and Oncology 12/21/24
--- OUTSIDE RECORDS SUMMARY | 2025-05-18 17:43 | XMS_ITS | Encounter Summary ---
Author Organization [facility] Address [address] [place] [address] [place] [address] Care Team Providers Care Plate Inspector Name Role Phone Idania Gaston DO Primary Care Provider [phone] Encounter Details Date Type Department Care Team (Late st Contact Info) Description 03/26/2025 Abstract [facility] [address] [place] [address] Idania Gaston, [address] [place] [address] Social History Tobacco Use Types Packs/Day Years [...] 12/05/2024 How often do you attend [facility] or sabianism services? 1 to 4 times per year 12/05/2024 Do you belong to any clubs o r organizations such as christian groups, unions, fraternal or athletic groups, or [...] Recorded Patient Health Questionnaire-2 Score 0 10/02/2024 [facility] - Occupational Stress Questionnaire [...] time in the past 12 m [facility], were you homeless or living in [...] [address] [place] [address] Idania Gaston DO [address] [place] [address] documented as of this encounter Visit Diagnoses Not on filedocumented in this encounter Care Teams Plate Inspector Relationship Specialty Start Date End Date Idania Gaston DO [address] [place] [address] PCP - General Family Medicine 09/20/23 documented as of this encounter
--- OUTSIDE RECORDS SUMMARY | 2025-05-18 17:43 | XMS_ITS | Encounter Summary ---
Author Organization [facility] Address [address] [place] [address] Care Team Providers Care Instructional Assistant Name Role Phone Idania Gaston DO Primary Care Provider [phone] Encounter Details Date Type Department Care Team (Late st Contact Info) Description 03/07/2025 Abstract [facility] [address] [place] [phone] Idania Gaston, [address] [place] [address] Social History Tobacco Use Types Packs/Day Years [...] week 12/05/2024 How often do you attend [facility] or moravian services? 1 to 4 times per year 12/05/2024 Do you belong to any clubs o r organizations such as confucianism groups, unions, fraternal or athletic groups, or [...] Recorded Patient Health Questionnaire-2 Score 0 10/02/2024 [facility] - Occupational Stress Questionnaire Answer Date [...] any time in the past 12 m [facility], were you homeless or living in [...] [address] [place] [address] Idania Gaston DO [address] [place] [address] documented as of this encounter Visit Diagnoses Not on filedocumented in this encounter Care Teams Instructional Assistant Relationship Specialty Start Date End Date Idania Gaston DO [address] [place] [address] PCP - General Family Medicine 09/20/23 documented as of this encounter
--- OUTSIDE RECORDS SUMMARY | 2025-05-18 17:43 | XMS_ITS | Clinical Summary ---
Author Organization [facility] Address [address], [address] [place] [address] Care Team Providers Care Binding Machine Operator Name Role Phone Unavailable Primary [...] (as needed) Active ergocalciferol (ERGOCALCIFEROL) 1.25 MG (29905 UT) capsule Take 1 capsule by mouth [...] Amount: 75 mg 5 capsule 5 Active HYDROcodone-acetam inophen (NORCO) 5-325 MG per tabletIndications: Chronic foot pain, unspecified laterality Take 1 tablet by mouth every 6 hours as needed for Pain for up to 3 days. Intended supply: 3 days. Take lowest dose possible to manage pain Max Daily Amount: 4 tablets 12 tablet 5 04/29/20 25 Active Problems Problem Noted Date Diagnosed Date Idiopathic peripheral neuropathy 02/02/2025 Encounters Date Type Department Care Team Description 04/26/2025 1:51 PM EDT - 04/26/2025 2:26 PM EDT Emergency [facility] Emergency Department [address] [place], [place] [id number] Chronic foot pain, unspecified laterality (Primary Dx) Discharge Disposition: Home or Self Care 04/26/2025 Travel from Last 3 Months Social History Tobacco Use Types Packs/Day Years Used Date Smoking Tobacco: Never Smokeless Tobacco: Never Tobacco Cessation:Counseling Given: Not Answered Alcohol Use Standard Drinks/Week Comments Never 0 (1 standard drink = 0.6 oz pur e alcohol) AUDIT-C Answer Date Recorded Q1: How often do you have a drink containing alcohol? Never 04/26/2025 Q2: How many drinks containi ng alcohol do you have on a typical day when you are drinking? Patient does not drink Q3: How often do you have si x or more drinks on one occasion? Never 04/26/2025 Interpersonal Safety Domain Source: IP Abuse Scr [...] Sign Reading Time Taken Comments Blood Pressure 173/62 04/26/2025 1:25 PM EDT Pulse 85 04/26/2025 1:25 PM EDT Temperature 36.8 C (98.3 F) 04/26/2025 1:25 PM EDT Respiratory Rate 16 04/26/2025 1:25 PM EDT Oxygen Saturation 97% 04/26/2025 1:25 PM EDT Inhaled Oxygen Concentration - - [...] (Cologuard): Average risk 01/11/2016 Sigmoidoscopy/CT colonography 01/11/2016 Annual Wellness Visit (Medicare Advantage) 09/06/2024 Flu vaccine (#1) 04/06/2025 11/05/2022, , 06/17/2019, Additional history exists COVID-19 Vaccine ( season) 2025 08/12/2021, 01/23/2021 Shingles vaccine Completed 01/18/2023, 11/13/2022 Hepatitis A [...] on patient's age to complete this topic Insurance [facility] DUAL COMPLETE
--- OUTSIDE RECORDS SUMMARY | 2025-05-18 17:43 | XMS_ITS | Encounter Summary ---
Author Organization [facility] Address [address] [place] [address] Care Team Providers Care Auth Specialist Name Role Phone Idania Gaston DO Primary Care Provider +1- [phone] Encounter Details Date Type Department Care Team (Late st Contact Info) Description 01/01/2025 Abstract [facility] [address] [place] [address] Idania Gaston, [address] [place] [address] Social History Tobacco Use Types Packs/Day Years [...] week 12/05/2024 [facility] often [facility] or confucianist services? 1 to 4 times per year 12/05/2024 Do you belong to any clubs o r organizations such as mormonism groups, unions, fraternal or athletic groups, or [...] Health Questionnaire-2 Score 0 10/02/2024 [facility] - Occupational Stress Questionnaire Answer Date Recorded [...] [address] [place] [address] Idania Gaston DO [address] [place] [address] documented as of this encounter Visit Diagnoses Not on filedocumented in this encounter Care Teams Auth Specialist Relationship Specialty Start Date End Date Idania Gaston DO [address] [place] [address] PCP - General Family Medicine 09/20/23 documented as of this encounter
--- OUTSIDE RECORDS SUMMARY | 2025-05-18 17:43 | XMS_ITS | Clinical Summary ---
Author Organization [facility] Address [address] [id number] Care Team Providers Care Hood Maker Name Role Phone Idania Gaston DO Primary Care Provider +1- [phone] Social History Tobacco Use Types Packs/Day Years [...] COVID-19 Vaccine (1 - 2023-2 5 season) 2025 Influenza Vaccine (#1) 2025 Respiratory Syncytial Virus (RSV) or ages 60 years and older (1 - 1-dose 75+ series) 2046 Respiratory Syncytial Virus (RSV) ages 0 thru 19 months Aged Out No longer eligible based on patient's age to complete this topic Care Teams Hood Maker Relationship Specialty Start Date End Date Idania Gaston DO [address] [place] [address] PCP - General Family Medicine 06/04/22
--- OUTSIDE RECORDS SUMMARY | 2025-05-18 17:43 | XMS_ITS | Encounter Summary ---
Author Organization [facility] Address [address] [place] [address] Care Team Providers Care Lowerator Operator Name Role Phone Idania Gaston DO Primary Care Provider +1- [phone] Encounter Details Date Type Department Care Team (Late st Contact Info) Description 03/27/2025 Abstract [facility] [place] [facility] [address] [place] [address] Idania Gaston, [address] [place] [address] Social History Tobacco Use Types Packs/Day Years [...] often do you attend [facility] or latter-day services? 1 to 4 times [...] Score 0 10/02/2024 [facility] - Occupational Stress Questionnaire Answer Date [...] any time in the past 12 m [facility], were you homeless or living [...] [address] [place] [address] Idania Gaston DO [address] [place] [address] documented as of this encounter Visit Diagnoses Not on filedocumented in this encounter Care Teams Lowerator Operator Relationship Specialty Start Date End Date Idania Gaston DO [address] [place] [address] PCP - General Family Medicine 09/20/23 documented as of this encounter
--- OUTSIDE RECORDS SUMMARY | 2025-05-18 17:43 | XMS_ITS | Encounter Summary ---
Author Organization [facility] Address [address] [place] [place] [address] Care Team Providers Care Kaiwhakahaere Name Role Phone Idania Gaston DO Primary Care Provider +1- [phone] Encounter Details Date Type Department Care Team (Late st Contact Info) Description 03/27/2025 Abstract [facility] [place] [facility] [address] [place] [address] Idania Gaston, [address] [place] [address] Social History Tobacco Use Types Packs/Day Years [...] often do you attend [facility] or latter-day services? 1 to 4 times per year 12/05/2024 Do you belong to any clubs o r organizations such as zoroastrianism groups, unions, fraternal or athletic groups, or [...] Recorded Patient Health Questionnaire-2 Score 0 10/02/2024 [facility] - Occupational Stress Questionnaire Answer Date [...] time in the past 12 m [facility], were you homeless or living [...] [address] [place] [address] Idania Gsaton DO [address] [place] [address] documented as of this encounter Visit Diagnoses Not on filedocumented in this encounter Care Teams Kaiwhakahaere Relationship Specialty Start Date End Date Idania Gaston DO [address] [place] [address] PCP - General Family Medicine 09/20/23 documented as of this encounter
--- OUTSIDE RECORDS SUMMARY | 2025-05-18 17:43 | XMS_ITS | Encounter Summary ---
Author Organization [facility] Address [address] [place] [address] Care Team Providers Care Retail Reset Merchandiser Name Role Phone Idania Gaston DO Primary Care Provider +1- [phone] Idania Gaston DO Unavailable Encounter Details Date Type Department Care Team (Late st Contact Info) Description 01/07/2024 Abstract [facility] [place] [facility] [address] [address] [place] [address] Idania Gaston, DO [address] [place] [address] Social History Tobacco Use Types Packs/Day Years [...] [address] [place] [address] Idania Gaston DO [address] [place] [id number] documented as of this encounter Visit Diagnoses Not on filedocumented in this encounter Care Teams Retail Reset Merchandiser Relationship Specialty Start Date End Date Idania Gaston DO [address] [place] [id number] PCP - General Family Medicine 09/20/23 Idania Gaston DO [address] [place] [id number] PCP - [facility] 09/06/23 09/05/24 documented as of this encounter
--- OUTSIDE RECORDS SUMMARY | 2025-05-18 17:43 | XMS_ITS | Encounter Summary ---
Author Organization [facility] Address [address] [place] [address] [place] [address] Care Team Providers Care Flame Degreaser Name Role Phone Idania Gaston DO Primary Care Provider +1- [phone] Encounter Details Date Type Department Care Team (Late st Contact Info) Description 04/09/2025 Abstract [facility] [address] [place] [address] Idania Gaston, [address] [place] [address] Social History Tobacco Use Types Packs/Day Years [...] you attend [facility] or church services? 1 to 4 times per year 12/05/2024 Do you belong to any clubs o r organizations such as jewish groups, unions, fraternal or athletic groups, or [...] Recorded Patient Health Questionnaire-2 Score 0 10/02/2024 [facility] - Occupational Stress Questionnaire Answer Date Recorded [...] the past 12 m [facility], were you homeless or living in a [...] [address] [place] [address] Idania Gaston DO [address] [place] [address] documented as of this encounter Visit Diagnoses Not on filedocumented in this encounter Care Teams Flame Degreaser Relationship Specialty Start Date End Date Idania Gaston DO [address] [place] [address] PCP - General Family Medicine 09/20/23 documented as of this encounter
--- OUTSIDE RECORDS SUMMARY | 2025-05-18 17:43 | XMS_ITS | Encounter Summary ---
Author Organization [facility] Address [address] [place] [address] [place] [address] Care Team Providers Care Supervisor Hand Silvering Name Role Phone Idania Gaston DO Primary Care Provider +1- [phone] Encounter Details Date Type Department Care Team (Late st Contact Info) Description 02/08/2025 Abstract [facility] [address] [place] [address] Idania Gaston, [address] [place] [address] Social History Tobacco Use Types Packs/Day Years [...] often do you attend [facility] or scientology services? 1 to 4 times per year [...] Patient Health Questionnaire-2 Score 0 10/02/2024 [facility] - Occupational Stress Questionnaire Answer Date [...] time in the past 12 m [facility], were you homeless or living in a [...] [address] [place] [address] Idania Gaston DO [address] [place] [address] documented as of this encounter Visit Diagnoses Not on filedocumented in this encounter Care Teams Supervisor Hand Silvering Relationship Specialty Start Date End Date Idania Gaston DO [address] [place] [address] PCP - General Family Medicine 09/20/23 documented as of this encounter
--- OUTSIDE RECORDS SUMMARY | 2025-05-18 17:43 | XMS_ITS | Encounter Summary ---
Author Organization [facility] Address [address] [place] [address] Care Team Providers Care Bench Assembler Electrical Name Role Phone Idania Gaston DO Primary Care Provider +1- [phone] Idania Gaston DO Unavailable [phone] Encounter Details Date Type Department Care Team (Late st Contact Info) Description 01/07/2024 Abstract [facility] [place] [facility] [address] [facility] [address] [facility] [address] [place] [address] Idania Gaston, DO [address] [place] [address] Social History Tobacco Use Types Packs/Day Years [...] [address] [place] [address] Idania Gaston DO [address] [place] [address] documented as of this encounter Visit Diagnoses Not on filedocumented in this encounter Care Teams Bench Assembler Electrical Relationship Specialty Start Date End Date Idania Gaston DO [address] [place] [address] PCP - General Family Medicine 09/20/23 Idania Gaston DO [address] [place] [address] PCP - [facility] 09/06/23 09/05/24 documented as of this encounter
--- OUTSIDE RECORDS SUMMARY | 2025-05-18 17:43 | XMS_ITS | Encounter Summary ---
Author Organization [facility] Address [address] [place] [address] Care Team Providers Care Qualitative Field Project Manager Name Role Phone Idania Gaston DO Unavailable [phone] Petznick, Idania M DO Primary Care Provider +1- [phone] Petznick, Idania M DO Unavailable [phone] Petznick, Idania M DO Primary Care Provider +1- [phone] Petznick, Idania M DO Unavailable Encounter Details Date Type Department Care Team (Late st Contact Info) Description 03/03/2023 Abstract [facility] [place] [facility] [address] [place] [address] Petjacy, Idania Maeve, DO [address] [place] [address] Social History Tobacco Use Types Packs/Day Years [...] 05/22/2025 4:00 PM EDT Office Visit [facility] [address] [place] [address] Idania Gaston, DO [address] [place] [address] documented as of this encounter Visit Diagnoses Not on filedocumented in this encounter Care Teams Qualitative Field Project Manager Relationship Specialty Start Date End Date Idania Gaston, DO [address] [place] [address] PCP - [facility] 09/09/22 07/06/23 Idania Gaston, DO [address] [place] [address] PCP - General Family Medicine 03/02/23 09/19/23 Idania Gaston, DO [address] [place] [address] PCP - [facility] [employer] 02/04/23 11/13/23 Idania Gaston, DO [address] [place] [address] PCP - General Family Medicine 09/20/23 Idania Gaston, DO [address] [place] [address] PCP - [facility] 09/06/23 09/05/24 documented as of this encounter
--- OUTSIDE RECORDS SUMMARY | 2025-05-18 17:43 | XMS_ITS | Encounter Summary ---
Author Organization [facility] Address [address] [place] [address] Care Team Providers Care Oncology Rep Specialist Name Role Phone Idania Gaston DO Primary Care Provider [phone]- [phone] Encounter Details Date Type Department Care Team (Late st Contact Info) Description 03/26/2025 Abstract [facility] [place] [facility] [address] [place] [address] Idania Gaston, [address] [place] [address] Social History Tobacco Use Types Packs/Day Years [...] you attend [facility] or sikhism services? 1 to 4 times per year 12/05/2024 Do you belong to any clubs o r organizations such as yarsani groups, unions, fraternal or athletic groups, or [...] Recorded Patient Health Questionnaire-2 Score 0 10/02/2024 [facility] - Occupational Stress Questionnaire Answer [...] time in the past 12 m [facility], were you homeless or living [...] [address] [place] [address] Idania Gaston DO [address] [place] [address] documented as of this encounter Visit Diagnoses Not on filedocumented in this encounter Care Teams Oncology Rep Specialist Relationship Specialty Start Date End Date Idania Gaston DO [address] [place] [address] PCP - General Family Medicine 09/20/23 documented as of this encounter
--- OUTSIDE RECORDS SUMMARY | 2025-05-18 17:43 | XMS_ITS | Encounter Summary ---
Author Organization [facility] Address [address] [place] [address] Care Team Providers Care Plain Clothes Police Officer Name Role Phone Idania Gaston DO Primary Care Provider +1- [phone] Idania Gaston DO Unavailable [phone] Encounter Details Date Type Department Care Team (Late st Contact Info) Description 01/17/2024 Abstract [facility] [place] [facility] [address] [facility] [address] [place] [address] Idania Gaston, DO [address] [place] [address] Social History Tobacco Use Types Packs/Day Years [...] [address] [place] [address] Idania Gaston DO [address] [place] [address] documented as of this encounter Visit Diagnoses Not on filedocumented in this encounter Care Teams Plain Clothes Police Officer Relationship Specialty Start Date End Date Idania Gaston DO [address] [place] [address] PCP - General Family Medicine 09/20/23 Idania Gaston DO [address] [place] [address] PCP - [facility] 09/06/23 09/05/24 documented as of this encounter
--- OUTSIDE RECORDS SUMMARY | 2025-05-18 17:43 | XMS_ITS | Encounter Summary ---
Author Organization [facility] Address [address] [address] Care Team Providers Care Diet Counselor Name Role Phone Idania Gaston DO Primary Care Provider [phone]- [phone] Encounter Details Date Type Department Care Team (Late st Contact Info) Description 02/13/2025 Abstract [facility] [address] [place] [address] Idania Gaston, [address] [place] [address] Social History Tobacco Use Types Packs/Day Years [...] How often do you attend [facility] or sabianist services? 1 to 4 times [...] Recorded Patient Health Questionnaire-2 Score 0 10/02/2024 [facility] - Occupational Stress Questionnaire Answer Date [...] any time in the past 12 m [facility], were you homeless or living in a [...] [address] [place] [address] Idania Gaston DO [address] [place] [address] documented as of this encounter Visit Diagnoses Not on filedocumented in this encounter Care Teams Diet Counselor Relationship Specialty Start Date End Date Idania Gaston DO [address] [place] [address] PCP - General Family Medicine 09/20/23 documented as of this encounter
--- OUTSIDE RECORDS SUMMARY | 2025-05-18 17:43 | XMS_ITS | Encounter Summary ---
Author Organization [facility] Address [address] [place] [address] Care Team Providers Care Tree Warden Name Role Phone Idania Gaston DO Primary Care Provider +1- [phone] Idania Gaston DO Unavailable [phone] Reason for Visit * Reason Comments Med Refill Encounter Details Date Type Department Care Team (Late st Contact Info) Description 05/02/2024 Refill [facility] [place] [facility] [address] [place] [address] Idania Gaston DO [address] [place] [address] Type 2 diabetes mellitus with peripheral neuropathy [...] [address] [place] [address] Idania Gaston DO [address] [place] [address] documented as of this encounter Visit Diagnoses Diagnosis Type 2 diabetes mellitus with peripheral neuropathy (HCC) documented in this encounter Care Teams Tree Warden Relationship Specialty Start Date End Date Idania Gaston DO [address] [place] [address] PCP - General Family Medicine 09/20/23 Idania Gaston DO [address] [place] [address] PCP - [facility] 09/06/23 09/05/24 documented as of this encounter
--- OUTSIDE RECORDS SUMMARY | 2025-05-18 17:43 | XMS_ITS | Clinical Summary ---
Author Organization [facility] Address [address] [place] [address] Phone Care Team Providers Care Restaurant Managing Partner Name Role Phone Unavailable Primary Care Provider [...]
--- OUTSIDE RECORDS SUMMARY | 2025-05-18 17:43 | XMS_ITS | Encounter Summary ---
Author Organization [facility] Address [address] [place] [address] Care Team Providers Care Network Coordinator Name Role Phone Idania Gaston DO Primary Care Provider +1- [phone] Encounter Details Date Type Department Care Team (Late st Contact Info) Description 03/12/2025 Abstract [facility] [place] [facility] [address] [place] [address] Idania Gaston, [address] [place] [address] Social History Tobacco Use Types Packs/Day Years [...] 12/05/2024 How often do you attend [facility] or yarsanism services? 1 to 4 times per year 12/05/2024 Do you belong to any clubs o r organizations such as anabaptist groups, unions, fraternal or athletic groups, or [...] Recorded Patient Health Questionnaire-2 Score 0 10/02/2024 [facility] - Occupational Stress Questionnaire Answer Date Recorded [...] in the past 12 m [facility], were you homeless or living in a nursing home (including now)? No 12/05/2024 Sex and [...] [address] [place] [address] Idania Gaston DO [address] [place] [address] documented as of this encounter Visit Diagnoses Not on filedocumented in this encounter Care Teams Network Coordinator Relationship Specialty Start Date End Date Idania Gaston DO [address] [place] [address] PCP - General Family Medicine 09/20/23 documented as of this encounter
--- OUTSIDE RECORDS SUMMARY | 2025-05-18 17:43 | XMS_ITS ---
Author Organization [facility] Address [address] [place] [address] Care Team Providers Care Try On Baster Name Role Phone Idania Gaston DO Primary Care Provider [phone] Ignacio Clay MD Unavailable Adams Tate SENIOR C DEVELOPER Unavailable [phone] Delano Bardales MD Unavailable Sivan Keller MD Unavailable [phone] Desire Bueno SENIOR C DEVELOPER Unavailable Unavailabl e Transplant Episode Kidney Candidate [facility] ([place], [place]) - [facility] Evaluation began on 10/12/2019 Marked as Active on 04/07/2022 Kidney CoordinatorMelinda Hidalgo RN Phone: N/A Fax: N/A Email: N/A Scores Score Value Updated Exceptions/Reas ons CPRA Not available EPTS (Calc) 67 05/18/2025 Infection History Noted Survival Infection Treatment Organism Resolved 06/14/2024 COVID-19 03/02/2023 Osteomyelitis of left foot ([facility]/H[facility]) 07/28/2019 Osteomyelitis ([facility]) Care Team Name Role Phone Fax Email Melinda Hidalgo, JACOB Kidney Coordinator N/A N/A N/A Ada Uriostegui MD Referring Physician [phone] N/A Melinda Avendano Txp Shipper And Receiving N/A N/A N/A Delano Bardales MD Surgeon [phone] N/A Gisele Wharton Txp Shipper And Receiving N/A N/A N/A Sandy Morris MD Conference Coordinator [phone] N/A Events Pre-Transplant Referred: 06/29/2019 Evaluation began: 10/12/2019 Committee: 03/22/2023 Dialysis History Dialysis History Start End Type Comments Center 03/06/2023 Hemo [facility] 11/23/2022 03/06/2023 Peritoneal [facility] Information Center Phone Fax Address [facility] [phone] [address] [place] [address] [facility] [phone] [address] [facility] [facility], [address] [facility] [address]
--- OUTSIDE RECORDS SUMMARY | 2025-05-18 17:43 | XMS_ITS | Encounter Summary ---
Author Organization [facility] Address [address] [place] [address] Care Team Providers Care Airplane Dispatch Clerk Name Role Phone Idania Gaston DO Primary Care Provider [phone] Idania Gaston DO Unavailable [phone] Encounter Details Date Type Department Care Team (Late st Contact Info) Description 01/07/2024 Orders Only [facility] [address] [place] [phone] Idania Gaston, [address] [address] [place] [address] Social History Tobacco Use Types Packs/Day Years [...] [address] [place] [id number] Idania Gaston DO [address] [place] [address] documented as of this encounter Procedures Procedure [...] on filedocumented in this encounter Care Teams Airplane Dispatch Clerk Relationship Specialty Start Date End Date Idania Gaston DO [address] [place] [address] PCP - General Family Medicine 09/20/23 Idania Gaston DO [address] [place] [address] PCP - [facility] 09/06/23 09/05/24 documented as of this encounter
--- OUTSIDE RECORDS SUMMARY | 2025-05-18 17:43 | XMS_ITS | Encounter Summary ---
Author Organization [facility] Address [address] [place] [address] Care Team Providers Care Ex Assistant/Program Director Name Role Phone Idania Gaston DO Unavailable Petznick, Idania M DO Primary Care Provider [phone] Petznick, Idania M DO Unavailable [phone] Petznick, Idania M DO Primary Care Provider [phone] Petznick, Idania M DO Unavailable Encounter Details Date Type Department Care Team (Late st Contact Info) Description 04/14/2023 Abstract [facility] [place] [facility] [address] [place] [address] Petjacy, Idania Maeve, DO [address] [place], [place] [id number] Social History Tobacco Use Types Packs/Day Years [...] 05/22/2025 4:00 PM EDT Office Visit [facility] [place] [facility] [address] [place] [address] Idania Gaston, DO [address] [place] [address] documented as of this encounter Visit Diagnoses Not on filedocumented in this encounter Care Teams Ex Assistant/Program Director Relationship Specialty Start Date End Date Idania Gaston, DO [address] [place] [address] PCP - [facility] 09/09/22 07/06/23 Idania Gaston, DO [address] [place] [address] PCP - General Family Medicine 03/02/23 09/19/23 Iadnia Gaston, DO [address] [place] [address] PCP - [facility] [place] [facility] 02/04/23 11/13/23 Idania Gaston, DO [address] [place] [address] PCP - General Family Medicine 09/20/23 Idania Gaston, DO [address] [place] [address] PCP - [facility] 09/06/23 09/05/24 documented as of this encounter
--- OUTSIDE RECORDS SUMMARY | 2025-05-18 17:43 | XMS_ITS | Encounter Summary ---
Author Organization [facility] Address [address] [facility] [place] [address] Care Team Providers Care Online Marketing Director Name Role Phone Idania Gaston DO Unavailable [phone] Petznick, Idania Mcfarlane DO Primary Care Provider [phone] Petznick, Idania Mcfarlane DO Unavailable [phone] Petznick, Idania Mcfarlane DO Primary Care Provider Petznick, Idania Mcfarlane DO Unavailable Encounter Details Date Type Department Care Team (Late st Contact Info) Description 06/22/2023 Telephone [facility] [phone] [phone] Jaspreet Jones MD [address] [address] Social History Tobacco Use Types [...] encounter Miscellaneous Notes * Telephone Encounter - Japsreet Jones MD - 06/22/2023 5:38 PM EDT Idania, Just wanted to let you know that this pt cancelled his new pt appt in April, then no-showed today,and for that reason will not be rescheduled. -- Jaspreet documented in this encounter Plan of Treatment Upcoming Encounters Date Type Department Care Team (Late st Contact Info) Description 05/22/2025 4:00 PM EDT Office Visit [facility] [place] [facility] [address] [place] [address] Idania Gaston, DO [address] [place] [address] documented as of this encounter Visit Diagnoses Not on filedocumented in this encounter Care Teams Online Marketing Director Relationship Specialty Start Date End Date Idania Gaston, DO [address] [place] [address] PCP - [facility] 09/09/22 07/06/23 Idania Gaston, DO [address] [place] [address] PCP - General Family Medicine 03/02/23 09/19/23 Idania Gaston, DO [address] [place] [address] PCP - [facility] [employer] [facility] 02/04/23 11/13/23 Idania Gaston, DO [address] [place] [address] PCP - General Family Medicine 09/20/23 Idania Gaston, DO [address] [place] [address] PCP - [facility] 09/06/23 09/05/24 documented as of this encounter
--- OUTSIDE RECORDS SUMMARY | 2025-05-18 17:43 | XMS_ITS | Encounter Summary ---
Author Organization [facility] Address [address] [place] [address] Care Team Providers Care Drafter Civil (Cad) Name Role Phone Idania Gaston DO Primary Care Provider [phone] Encounter Details Date Type Department Care Team (Late st Contact Info) Description 01/03/2025 Abstract [facility] [address] [place] [phone] Idania Gaston, [address] [place] [address] Social History Tobacco Use Types Packs/Day Years [...] week 12/05/2024 How often do you attend [facility] or restorationist services? 1 to 4 times per year 12/05/2024 Do you belong to any clubs o r organizations such as confucianist groups, unions, fraternal or athletic groups, or [...] Score 0 10/02/2024 [facility] - Occupational Stress Questionnaire Answer Date [...] any time in the past 12 m [facility], were you homeless or living [...] [address] [place] [address] Idania Gaston DO [address] [place] [address] documented as of this encounter Visit Diagnoses Not on filedocumented in this encounter Care Teams Drafter Civil (Cad) Relationship Specialty Start Date End Date Idania Gaston DO [address] [place] [address] PCP - General Family Medicine 09/20/23 documented as of this encounter
--- OUTSIDE RECORDS SUMMARY | 2025-05-18 17:48 | XMS_ITS | CCD ---
Author Organization [facility] Care Team Providers Care Pneumatic Tube Fitter Name Role Phone Ada Uriostegui Unavailable BERTIN RUSSELL Admitting Unavailable BERTIN RUSSELL Attending Unavailable IDANIA RICKETTS Primary Care Unavailable IDANIA RICKETTS Referring Unavailable DO Jamarcus Idania Primary Care Provider [phone] MD Ada Uriostegui Attending Provider [phone] DO Jamarcus Idania Primary Care Provider MD Ada Uriostegui Attending Provider Sj Francois Primary Care Physician Sj Garcia Unavailable Unavailable Sj Francois Primary Care Physician Samantha Ricketts, Idania Primary Care Provider [phone] MD Ada Uriostegui Attending Provider DO Yosef Castillo Emergency Provider [phone] Sj Francois Primary Care Physician Samantha Ricketts, Idania Primary Care Provider MD Ada Uriostegui Attending Provider MD Evans Narayanan Jr Emergency Provider Sj Francois Primary Care Physician Sj Garcia Primary Care Physician Samantha Ricketts, Idania Primary Care Provider MD Ada Uriostegui Attending Provider [phone] AlessandroSj Britton Attending Samantha Ricketts, Idania Primary Care Unavailable Idania Ricketts Consulting Unavailable Alessandro DPM, Sj Fraga Attending Sj Garcia Primary Care Physician Samantha Ricketts, Idania Primary Care Provider HARSH Hill Emergency Provider Jamarcus, Idania Primary Care Provider MD Ada Uriostegui Attending Provider MD Delano Mondragon Emergency Provider Frings, DO Woodson Admit Provider Ney, DO Woodson Attending Provider MD Jf Liu Other Provider MD Ada Uriostegui Other Provider MD Zenon aCge Other Provider MD Anders [facility] Other Provider MD Yocasta Villalba Other Provider Jamarcus, DO Emerson Primary Care Provider MD Evans Narayanan Jr Emergency Provider HARSH Hill Emergency Provider [phone] MD Ada Uriostegui Attending Provider MD Delano Mondragon Emergency Provider DO Chintan Brewster Admit Provider Ney, DO Woodson Attending Provider MD Jf Liu Other Provider MD Ada Uriostegui Other Provider MD Zenon Cage Other Provider MD Anders [facility] Other Provider MD Yocasta Villalba Other Provider DR IDANIA RICKETTS Primary Care Unavailable KEVIN WILKES Admitting Unavailable HIGHLANDER, KEVIN Lewis Attending Unavailable HIGHLANDER, KEVIN Lewis Admitting Unavailable PETZNICK, DR EMERSON Primary Care Unavailable HIGHLANDER, KEVIN Lewis Attending Unavailable HIGHLANDER, KEVIN Lewis Admitting Unavailable PETZNICK, DR EMERSON Primary Care Unavailable HIGHLANDER, KEVIN Lewis Attending Unavailable HIGHLANDER, KEVIN Lewis Admitting Unavailable PETZNICK, DR EMERSON Primary Care Unavailable HIGHLANDER, KEVIN Lewis Attending Unavailable PETZNICK, DR EMERSON Primary Care Unavailable MISC, DOCTOR Admitting Unavailable MISC, DR MARC Consulting Unavailable MISC, DOCTOR Attending Unavailable HIGHLANDER, KEVIN Lewis Attending Unavailable PETZNICK, DR EMERSON Primary Care Unavailable HIGHLANDER, KEVIN Lewis Admitting Unavailable ZIEBER, DR VIRGINIA Betancourt Consulting Unavailable HIGHLANDER, KEVIN Lewis Consulting Unavailable HIGHLANDER, KEVIN Lewis Admitting Unavailable PETZNICK, DR EMERSON Primary Care Unavailable HIGHLANDER, KEVIN Lewis Attending Unavailable HIGHLANDER, KEVIN Lewis Attending Unavailable PETZNICK, DR EMERSON Primary Care Unavailable HIGHLANDER, KEVIN Lewis Admitting Unavailable Alessandro, Sj Singh Primary Care Physician Samantha Francois, Sj P Primary Care Physician Samantha Kennedy Tondra Unavailable Petznick, DO Emerson Primary Care Provider [phone] Map, SHOTBLAST EQUIPMENT OPERATOR Tondra Imelda Attending Provider DO Chintan Brewster Attending Provider Alessandro, Sj Singh Primary Care Physician Samantha tate Alessandro, Sj P Primary Care Physician Unavanathaniel lable Alessandro, Sj P Primary Care Physician Unavanathaniel lable Alessandro, Sj P Primary Care Physician Unavai lable Petznick, DO Idania Primary Care Provider [phone] Mapus, SHOTBLAST EQUIPMENT OPERATOR Tondra K Attending Provider [phone] DO Chintan Brewster Attending Provider [phone] DO Clara Bell Emergency Provider Alessandro, Sj Singh Primary Care Physician Rasheeda Kirkland Unavailable Petznick, DO Emerson Primary Care Provider MD Ramirez Jean Attending Provider Jamarcus, DO Idania Primary Care Provider MD Chintan Sweet Emergency Provider MD Augusta Hill Attending Provider [phone] Ramirez Jean Unavailable Petkorina DO, Idania M Unavailable Petkorina DO, Idania M Unavailable Petkorina DO, Idania M Primary Care Provider [phone] DO Flakito High Attending Provider Sj Francois Primary Care Physician Samantha Ricketts, Idania Primary Care Provider MD Ramirez Jean Attending Provider MD Chintan Sweet Emergency Provider MD Augusta Hill Attending Provider [phone] DO Flakito High Attending Provider DO Flakito High Referring Provider DO Chong Dixon Emergency Provider DO Buddy Murguia Admit Provider [phone] DO Buddy Murguia Attending Provider MD Yocasta Villalba Other Provider MD Chintan Hernández Other Provider TIARA Vu Other Provider DO Amy Escudero Attending Provider DO Clara Bell Emergency Provider Jamarcus, Idania Primary Care Provider MD Ramirez Jean Attending Provider TIARA Mondragon Attending Provider Jamarcus, Idania Primary Care Provider Jamarcus, Idania Primary Care Provider DO Flakito High Attending Provider Petznick, DO Idania Primary Care Provider DO Chong Dixon A Emergency Provider PetIdania louie DO M Unavailable Petznick DO, Idania Primary Care Provider Delano Mondragon MD Emergency Provider [phone] Will Cerna PA-C Emergency Provider Lindbloom DO, Maxime Admit Provider Lindbloom DO, Maxime Attending Provider Chintan Hernández MD Other Provider Alexa PALOMARES, Jf Other Provider Wayne MICHEL-C, Marielos Other Provider Unavailable Ada Uriostegui MD Other Provider Yocasta Villalba MD Other Provider Gi Mondragon DPM Other Provider Petkorina DO, Idania Primary Care Provider Will Cerna PA-C Emergency Provider Lindbloom DO, Maxime Admit Provider Lindbloom DO, Maxime Attending Provider Chintan Hernández MD Other Provider Jf Liu MD Other Provider Wayne MICHEL-C, Marielos Other Provider Unavailable Ada Uriostegui MD Other Provider Yocasta Villalba MD Other Provider Gi Mondragon DPM Other Provider Venkat Burgos DO Emergency Provider IDANIA RICKETTS Attending Unavailable IDANIA RICKETTS Referring Unavailable GI MONDRAGON Attending Unavailable GI MONDRAGON Attending Unavailable IDANIA RICKETTS Referring Unavailable GI MONDRAGON Attending Unavailable MONDRAGON, [...] Attending Unavailable Declan Silverio APRN Emergency Provider KrIvana foley DO Emergency Provider Unavailable Primary Care Provider Unavailabl e JAMARCUS, IDANIA Primary Care Physician Delano Benavides Attending Unavailable Petznick DO, Idania Primary Care Provider Venkat Burgos DO Emergency Provider Unavailable Petznick DO, Idania Primary Care Provider Petznick DO, Idania Referring Provider Jey Ramos MD Attending Provider Nuria Fermin LPN Attending Provider Unavailable Savanah Anthony APRN Emergency Provider Declan Silverio APRN Emergency Provider Nehemiah FALCON, Will Mcgovern Emergency Provider Petznick DO, Idania M Primary Care Provider Petznick DO, Idania Primary Care Provider [phone] Venkat Burgos M Admitting Unavailable Bia Burgosed M Attending Unavailable Petznick, Idania Primary Care Unavailable Declan Silverio Admitting Unavailable Declan Silverio Attending Unavailable Petznick, Idania Primary Care Unavailable Ivana Salcedo M Attending Unavailable Kralaina Ivana M Admitting Unavailable Petznick, Idania Primary Care Unavailable Chino, Maxime Admitting Unavaillizbeth e Chinyere Maganaer Attending Unavaillizbeth e Chintan Hernández Consulting Unavailable Petznick, Idania Primary Care Unavailable Jf Liu Consulting Unavailable Runner, Marielos Consulting Unavailable Moody, Ada Consulting Unavailable Bakhous, Aziz Consulting Unavailable Giancarlo, Gi Consulting Unavailable Kiepert, Savanah A Admitting Unavailable Kiepert, Savanah A Attending Unavailable Petznick, Idania Primary Care Unavailable Cerna, Will W Admitting Unavailable Cerna, Will W Attending Unavailable Petznick, Idania Primary Care Unavailable Cerna, Will W Admitting Unavailable Cerna, Will W Attending Unavailable Petznick, Idania Primary Care Unavailable KeChong acosta A Admitting Unavailable KeisterChong A Attending Unavailable [...] IDANIA M Primary Care Unavailable ALEC JACOBSON Attending Unavailable ALEC JACOBSON Referring Unavailable PETZNICK, IDANIA M Primary Care Unavailable ALEC JACOBSON Admitting Unavailable ALEC JACOBSON Attending Unavailable PETZNICK, IDANIA M Referring Unavailable PETZNICK, IDANIA M Primary Care Unavailable KAYLEE MESA Attending Unavailable PETZNICK, IDANIA M Referring Unavailable PETZNICK, IDANIA M Primary Care Unavailable PEDRO ALVAREZ Admitting Unavailable PEDRO ALVAREZ Attending Unavailable HEAVENLY BUENO Attending Unavailable FAUSTINO MOREL Attending Unavailable JOY WATERS Attending Unavailable JENIFER, REFUGIO Referring Unavailable MOUKARBEL, PEDRO Attending Unavailable CARTER, TRACEIN Attending Unavailable ADAMS TATE Attending Unavailable COOLEY, CHONG Attending Unavailable MOREL, KARENH Attending Unavailable PERNE, JOY Attending Unavailable MOREL, BASMAH Attending Unavailable VIJENDRA, SIVAN Referring Unavailable YVONNE, BERTIN Referring Unavailable YVONNE, BERTIN Referring Unavailable JENIFER, REFUGIO Referring Unavailable JENIFER, REFUGIO Referring Unavailable COOLEY, CHONG Referring Unavailable BRADLEY UD DIN, UNKNOWN Attending Unavailab le JENIFER, REFUGIO Attending Unavailable CARTER, JIANLIN Attending Unavailable VIJENDRA, SIVAN Attending Unavailable COOLEY, CHONG Attending Unavailable PERNE, JOY Referring Unavailable MOUKARBEL, PEDRO Referring Unavailable COOLEY, CHONG Referring Unavailable HENLEY, ANYA Admitting Unavailable HENLEY, ANYA Referring Unavailable HENLEY, ANYA Attending Unavailable YVONNE, BERTIN Referring Unavailable CARTER, JIANLIN Attending Unavailable CARTER, JIANLIN Admitting Unavailable TANVIR SMITH Attending Unavailable PETZNICK IDANIA M Primary Care Unavailable PETZNICK, IDANIA Attending Unavailable PETZNICK, IDANIA Admitting Unavailable NwokAngelika grey C Attending Unavailable PETZNICK IDANIA M Primary Care Unavailable Allergies Allergy Classification Reported Allergen(s) Allergy Type Date of Onset Reaction(s) Facility Glycopeptides (antibiotic) (1 source) Vancomycin Drug Allergy 4 [facility] Haloperidol (1 source) Haloperidol Drug Allergy 4 [facility] Latex (1 source) Latex Substance Allergy 4 [facility] (20 sources) Latex; Translations: [latex] Allergy to substance (disorder) 2 [facility] Repository Comment on above: pt states allergy is only if exposed to latex for extended periods. (20 sources) Haloperidol; Translations: [haloperidol] Drug Allergy 3 [facility] Comment on above: anxious, restless, a gitated (2 sources) Adhesive agent; Translations: [ADHESIVE] Drug allergy (disorder) 2 [facility] Repository (20 sources) Vancomycin; Translations: [vancomycin] Drug Allergy 3 [facility] (20 sources) Hemphill Oil; Translations: [SUNFLOWER OIL] Propensity to adverse reactions 8 GI intolerance [facility] (20 sources) Wound Dressing Adhesive Drug Allergy 2 Rash [facility] (4 sources) sunflower seed extract; Translations: [SUNFLOWER SEED] Drug Allergy 8 [facility]: (1 source) Vancomycin Drug Allergy 5 [facility] Repository (4 sources) Adhesive Tape-Silicones; Translations: [ADHESIVE TAPE-SILICONES] Propensity to adverse reactions to drug 2 Rash [facility] Medications Current Medications Medication Drug Class(es) [...] 4-6 HOURS as needed for pain 7 March 26, 2025 April 24, 2025 8:42am [...] mouth every six hours for pain HYDROcodone-acetaminophen ([place]) 5-325 MG tablet Indications: Lymphedema Take 1 tablet by mouth every 6 (six) hours if needed for severe pain for up to 5 days 20 tablet 09/19/2024 09/24/2024 Active Start: 08-29-2024 End: 09-04-2024 take 1 tablet by mouth every six hours as needed for pain HYDROcodone-acetaminophen ([place]) 5-325 MG tablet TAKE 1 TABLET BY MOUTH EVERY 6 HOURS FOR 5 DAYS NEEDED FOR PAIN 08/29/2024 09/04/2024 Discontinued (Therapy completed) Start: 05-11-2024 End: 05-16-2024 take 1 tablet by mouth every six hours for pain HYDROcodone-acetaminophen ([place]) 5-325 MG tablet Indications: Neuropathy Take 1 [...] for 3 day(s), 12 tab(s), Refill(s) 0, [id number], 187, cm, 02/02/25 18:12:00 EDT, Height/Length Dosing, [...] 8:41am amitriptyline hydrochloride 10 mg oral tablet (5 sources) Tricyclic Antidepressant Start: 11-23-2024 End: 01-22-2025 [...] by mouth once daily in the morning anastrozole (Arimidex) 1 MG chemo tablet take 1 tablet by mouth every morning (SWALLOW WHOLE WITH A DRINK OF WATER) 01/25/2023 Active aspirin 81 mg chewable tablet (20 sources) [...] Start: 07-15-2018 take 1 tablet by mouth in the morning atorvastatin (Lipitor) 20 MG tablet Indications: Pure hypercholesterolemia TAKE 1 TABLET(20 MG) BY MOUTH IN THE MORNING 90 tablet 3 12/28/2024 Active b complex-folic acid tablet (20 sources) take [...] oral tablet (20 sources) Loop Diuretic Start: 05-16-2025 take 1 tablet by mouth once daily bumetanide (Bumex) 2 MG tablet Indications: End stage renal disease (HCC) TAKE 1 TABLET(2 MG) BY MOUTH DAILY 30 tablet 05/16/2025 Active Start: 05-08-2025 End: 05-16-2025 take 1 tablet by mouth once daily bumetanide (Bumex) 2 MG tablet Indications: End stage renal disease (HCC) TAKE 1 TABLET(2 MG) BY MOUTH DAILY 90 tablet 05/08/2025 05/16/2025 Discontinued Start: 09-19-2024 take 1 tablet by nida th once daily Bumetanide 2 mg tablet Active 2 MG PO Daily October 29, 2024 1:00am Complies with drug therapy bumetanide (BUME X) 1 mg tablet Take 2 tablets (2 mg total) by mouth. Active calcitriol 0.93217 mg oral capsule (20 sources) Vitamin D3 Analog Start: 02-12-2023 take 1 capsule by mouth in the morning calcitriol (Rocaltrol) 0.25 MCG capsule Take 0.25 mcg by mouth in the morning. 02/12/2023 Active take 1 capsule by mouth every tw [...] mouth. Active take 2 tablets by mo [facility] every eight hours Calcium Acetate 667 [...] Continuous Blood Gluc Receiv er (Dexcom G7 Protective Services Social Worker) device (20 sources) Start: 12-21-2022 Continuous Blo od Gluc Protective Services Social Worker (Dexcom G7 Protective Services Social Worker) device 1 (one) time each day at the same time. 12/21/2022 Active Start: 12-21-2022 Continuous Blo od Gluc Protective Services Social Worker (Dexcom G7 Protective Services Social Worker) device 1 (one) time each day at [...] (1 source) Nonsteroidal Anti-inflammatory Drug Start: 04-24-20 doxycycline hyclate 100 mg oral capsule (20 [...] mouth once daily ergocalciferol (ERGOCALCIFEROL) 1.25 MG (18583 UT) capsule Take 1 capsule by mouth [...] minutes; Complies with drug therapy Start: 06-16-2023 3 ml insulin glargine 100 unt/ml pen injector (20 sources) Insulin Analog Start: 05-16-2025 insulin glargi ne (Lantus SoloStar) 100 UNIT/ML pen Indications: 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 30 mL 3 08/07/2024 05/16/2025 Discontinued Start: 07-27-2024 End: 08-07-2024 Lantus SoloStar 100 [...] lispro protamine, human 50 unt/ml pen injector (5 sources) Insulin Analog insulin lispro p rotamin-lispro [...] oral tablet (20 sources) l-Thyrox ine Start: 11-03-2024 take 1 tablet by mouth once daily before mealtime levothyroxine (Synthroid, Levoxyl) 100 MCG tablet Indications: Acquired hypothyroidism TAKE 1 TABLET BY MOUTH EVERY MORNING BEFORE A MEAL 90 tablet 11/03/2024 Active Start: 04-29-2020 End: 07-25-2024 take 1 tablet [...] route once daily take 1 tablet by once daily in the morning lidocaine 0.05 [...] painful area for up to 12 hrs LORazepam 1 mg oral tablet (20 sources) Benzodiazepine Start: 05-15-2024 End: 03-26-2025 take 1 tablet by mouth every eight hours as needed for anxiety and anxiety and anxiety LORazepam (Ativan) 1 MG tablet Indications: Anxiety Take 1 tablet (1 mg) by mouth every 8 (eight) hours if needed for anxiety 10 tablet 01/03/2025 Active methocarbamol 500 mg oral tablet (2 sources) Muscle Relaxant take 1 tablet by mouth three times daily as needed for muscle spasms methocarbamol (ROBAXIN) 500 MG tablet Take 1 tablet by mouth 3 times daily as needed (back spasms) Active midodrine hydrochloride 10 mg oral tablet (18 sources) alpha-Adrenergic Agonist Start: 09-13-2024 midodrine (Proamatine) 10 MG tablet TAKE 1 TABLET BY MOUTH NEEDED DURING DIALYSIS FOR BLOOD PRESSURE SUPPORT 09/13/2024 Active midodrine (PROAM ATINE) 2.5 mg tablet Take 4 tablets (10 mg total) by mouth. Active Mounjaro (2 sources) Mounjaro Active NON FORMULARY (3 sources) take 1 mg by mouth in the morning NON FORMULARY Take 1 mg by mouth in the morning. Med Name: anaotrozole . Active nortriptyline 25 mg oral capsule (2 sources) Tricyclic Antidepressant Start: 025 take 1 capsule by mouth once daily nortriptyline (PAMELOR) 25 mg capsule Take 1 capsule (25 mg total) by mouth nightly. 30 capsule 1 04/27/2025 Active ondansetron 4 mg disintegrating oral tablet (20 sources) Serotonin-3 Receptor Antagonist Start: 024 take 2 tablets by mouth every eight [...] tablet,disintegrating Discontinued 4 MG PO Q8H 9 November 01, 2022 1:00am November 04, 2022 5:59pm pregabalin 150 mg oral capsule (20 sources) Start: 04-13-2025 take 1 capsule by mouth once daily at bedtime pregabalin (Lyrica) 150 MG capsule Indications: Neuropathy , Type 2 diabetes mellitus with peripheral neuropathy (HCC) TAKE 1 CAPSULE BY MOUTH EVERY MORNING AND EVERY NIGHT AT BEDTIME 60 capsule 04/13/2025 Active Start: 02-02-2025 End: 02-07-2025 take 1 capsule [...] 9:10am Start: 10-10-2022 take 1 capsule by [facility] once daily Pregabalin (Lyrica) 50 mg capsule [...] End: 08-07-2024 take 1 tablet by mouth at bedtime traZODone (Desyrel) 50 MG tablet Indications: Primary insomnia TAKE 1 TABLET(50 MG) BY MOUTH AT BEDTIME 90 tablet 08/07/2024 Active Start: 11-01-2022 End: 11-04-2022 take 1 [...] Daily at bedtime as needed for insomnia 5 July 29, 2022 1:00am October 10, 2022 5:28am Vitamin A 3 MG (03802 UT) (4 sources) take 1 capsule by mouth once jocelyn ly take 1 capsule by mouth once jocelyn ly Vitamin A 3 MG (24463 UT) 1 capsule Orally Once a day Active vitamin b12 1 mg oral tablet (20 sources) Vitamin B12 Start: 10-18-2023 cyanocobalamin (Vitamin B-12) 1000 MCG tablet Daily 10/18/2023 Active take 1 tablet by nida th every [...] Drug Class(es) Dates Sig (Normalized) Sig (Original) [id number] 200 actuat albuterol 0.09 mg/actuat metered dose [...] 8 % kit Indications: Diabetic peripheral neuropathy (CMS-HCC) Apply 1,120 SQ CM [...] 8:41pm Start: 03-02-2023 take 2 tablets by [facility] in the morning furosemide (Lasix) [...] 16, 2023 12:07pm take 1 tablet by [facility] every twelve hours Furosemide 80 MG 1 tablet Orally twice a day for 30 days Active take 2 tablets by [facility] every twenty-four hours Lasix 40 [...] completed) Start: 05-17-2024 take 1 capsule by [facility] three times weekly gabapentin (Neurontin) 300 MG capsule Indications: Type 2 diabetes mellitus with peripheral neuropathy (CMS/HCC) Take 1 capsule (300 mg) by mouth 3 (three) times a week After dialysis 30 capsule 3 05/17/2024 Active Start: 05-17-2024 take 1 capsule by mo [facility] three times weekly gabapentin (Neurontin) 300 [...] 17, 2019 12:00am June 17, 2019 2:31pm gabapentin (NEUR ONTIN) 100 mg capsule Take 2 capsules (200 mg total) by mouth in the morning and 2 capsules (200 mg total) at noon and 2 capsules (200 mg total) in the evening and 2 capsules (200 mg total) before bedtime. Active gentamicin 0.001 mg/mg topic al ointment [...] 18, 2023 8:50am [place] [address] mg powder for oral suspension (20 sources) [...] 2 diabetes mellitus with Charcot's joint arthropathy ([facility]/HCC) Inject 7.5 mg under the skin 1 (one) time per week 6 mL 3 04/27/2024 Active Start: 10-11-2023 inject 7.5 mg by sub cutaneous injection every week Tirzepatide (Mounjaro) 7.5 MG/0.5ML solution pen-injector Indications: Type 2 diabetes mellitus with ESRD (end-stage renal disease) ([facility]) Inject 7.5 mg under the skin 1 [...] Hallux rigidus, right foot Onset: 3 Chronic Anxiety disorders (20 sources) Anxiety; Translations: [Anxiety [...] renal failure] Onset: 2 Resolved: 2 Chronic Diabetes mellitus with complications (20 sources) Type [...] sources) Fever; Translations: [Fever, unspecified] 11-22-2023 Episodic Hypertension with complications and secondary hypertension [...] 11-22-2023 Episodic Other aftercare (1 source) Other long filler cigar roller machine (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 therapy Episodic Other aftercare (15 sources) Drug therapy finding; Translations: [Other senior care (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 therapy] 12-16-2023 Episodic Other circulatory [...] Chronic Other diseases of veins and lymphatics (19 sources) Lymphedema; Translations: [Lymphedema, not elsewhere classified] [...] 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 Other injuries and conditions due to external [...] Onset: 3 03-02-2023 Chronic Residual codes; unclassified (18 sources) Localized edema; Translations: [Edema] Onset: 3 11-23-2023 Episodic Septicemia (except in labor) (20 sources) Sepsis; Translations: [Sepsis, unspecified organism] 11-21-2023 Episodic Spondylosis; intervertebral disc disorders; other back problems (20 sources) Lumbar radiculopathy; Translations: [Radiculopathy, lumbar region] Onset: 5 02-13-2025 Episodic Thyroid disorders (20 sources) Hypothyroidism, unspecified; [...] (2 sources) Post-op; Translations: [Post-op] Onset: 4 Past or Other Problems Problem Classification Problem Date Documented Da te Episodic/Chronic Acquired foot deformities (1 source) Flat foot [pes planus] (acquired), left foot; Translations: [FLAT FOOT PES PLANUS ACQ LT FOOT] Onset: 03-05-2022 Episodic Acute and unspecified renal failure (20 sources) Acute renal failure syndrome; Translations: [Acute kidney failure, unspecified] Onset: 10-13-2023 Resolved: 02-25-2024 06-18-2019 Episodic Administrative/social admission (20 sources) Dietary counseling [...] Episodic Deficiency and other anemia (20 sources) Anemia; Translations: [Anemia, unspecified] Onset: 03-02-2023 Resolved: 03-02-2023 07-22-2019 Episodic Deficiency and other anemia (20 sources) Iron deficiency anemia; Translations: [Iron deficiency anemia, unspecified] Onset: 08-10-2022 10-13-2023 Episodic Fluid and electrolyte disorders (20 sources) Hyperkalemia; Translations: [Acute hyperkalemia] Onset: 12-03-2021 Resolved: 02-25-2024 Episodic Genitourinary symptoms and ill-defined conditions (20 [...] sources) Long-term current use of insulin; Translations: [prison (current) use of insulin] Onset: 03-02-2023 03-02-2023 Episodic Other aftercare (3 sources) 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; Translations: [Insulin long-term [...] Episodic Other diseases of veins and lymphatics (15 sources) Stasis dermatitis; Translations: [Venous insufficiency (chronic) (peripheral)] Onset: 09-20-2024 09-20-2024 Episodic Other endocrine disorders (20 sources) Adrenal mass; Translations: [Other specified disorders of adrenal gland] Onset: 03-02-2023 Resolved: 02-25-2024 03-02-2023 Chronic Other gastrointestinal disorders (20 sources) Diarrhea; Translations: [Diarrhea, unspecified] Onset: 10-13-2023 Resolved: 11-29-2023 11-01-2022 Episodic Other gastrointestinal disorders (20 sources) History of [...] 10-08-2022 Episodic Residual codes; unclassified (20 sources) Insomnia; Translations: [Insomnia, unspecified] Onset: 03-02-2023 07-29-2022 Episodic Residual codes; unclassified (20 sources) Edema of right lower limb; Translations: [Localized edema] Onset: 10-13-2023 Resolved: 11-29-2023 10-10-2022 Episodic Residual codes; unclassified (20 sources) Reduced [...] urethritis; Translations: [Nonspecific urethritis] Onset: 10-17-2024 Episodic Viral infection (20 sources) Disease caused by 2019-nCoV; Translations: [COVID-19] Onset: 01-27-2022 Resolved: 02-25-2024 09-11-2021 Episodic Results Test Name Value Interpretation Reference Range Facility Coding Summaryon 05-16-2025 Coding Summary HTMLBase 64 KidbabbdMJk0fEa+PGhlYWQ +LJ8ARCXqS30hwWFquM8sU2 NMTElOSywgQVBQTElOSyIgb rHgZX0vgMRoISWa IC8+EH9qBUFmLaukqVCht8S 6cXT5T46cjm2yLHnkzSZ1CR UzXmBmljqon5avzGo9CRapB mluOyBt LLKyuA42VSU6sJ96Yj40lKI ojRRdj9yrxXm9LyTqMLYiKA F5xZhbUFztk7OmJMWtV68cy RKrf7B0 KUDbrRdttBRcKaWstBZ6hQ1 qBVacageli0omnqtmTxl0yr 45vPYbv5F0jTZ8B7FgykC9Y GJvbGQg LtcxiAIJxG9poztde7dzcdn wQgCyDZPmLIa9ZHl4MSZqlJ snAzYaPK08EVD8RJMdpwXuZ 2FsLWFs gJpwInQ6k1P4Ao5KR3KEFld mD1JCAGNSQRfowLB+PC90cj 05L1PuOkmxKjj6UNFrAWM4i IZ3jT7y RVVhPTvpb4V3mYR1I6QdnxG oux6ww0tdLVZvWYuqS87qvI Iir3F6RCCgoJI5XNFrsQmmR iBzaG93 Oyc+CBRkrCepk5DdKaypl9r tq2txgUo4VtpdWUNhloCuiE bwEWG4y2YsMw4cENCsgOG9c GY2tU1f IvFtRdJ2CAnlL834DiPfuNW eQrfeO66nZ2WaxQU+PHRyPj e5EJFkuZacNN0wO2YwSQThq mctbGVm wYjiYC9xZSTvviljZDVzeJ4 qEXJsF1v9MbDjGbX9YMdbM3 VmUXMxegqbJc25zG6qYlYqG vV5UEpi A6IvbkF3IHLuwUXuMWguMNS 7N53no1M6GUSwZUHxJYG0aK S2lR5peFuxhmkwiODunTjme mVydGlj OJuyWHosC296NNUeuDsgLcE vZGluZyBEYXRlOiAgMDkvMT AvMjAyNTwvdGQ+CUBiOCY5a WxlPSAn wMAcBRjqXe2cmTcmrYcuRZ6 rSJTzkfjiHGWqgU8rVOCugS RksNanDR7rNCFvmnplk244N iAxMHB0 WXMpdBAiX0PjrD2tIwMsKQG lZLSaK1UvfUUwVIsiI199HZ coKmN2CSWybeArU7AoKOGmm WduOiB0 l4Z4Fz7Au3QhbaebS8KksBM bOiNxSmozCIq2J7HyUapciR I+LM95YLCkSP63YFm2NQW6h WxlPSdi SLThE3AkrV8fRtEdIUGkQTL kOyc+PHRhYmxlIHdpZHRoPS acOOGmRwHktHoeBT8fEm0xX GVyLWNv jOsdrVBlSlExw0yhLSFpZFt kYG9coYlmB0AvpMA2AWTmr4 r3Or91R70eU3JmfSP+PGNvb FZ7kWY3 vE5hBnRvDtT3XMrvX957ZjJ drPFpZbowa4npp3najCa2Nu D0XVJvwfThwDloBCJ2m8JnC y80I41k IHdpZHRoPSIxNSUiIHZhbGl hmo8rkV0vRn1+EHPmgEE8uM C7gR1tAyEoPqF0LRksM029B nRvcCIv Qpvqt3qqf2pccJe7OgRjOBY btgKulFekSUH8t2MnEo88Z3 PwcJkjc7XlMiu7qt32eWCrg 9U9sGU9 O0BmQJUgmeuxqUPujFcrGB1 vJGGsougdFQZdiA8uOGZdM4 a3RvAnGtV7BWouZ4BbxtP5R GJvbGQg FSFqhPXAmR8flskbv0hybyk iGbGwFVJbRNi0QXl9MPQasP coQmAqZYZ7XfP2RJB9kPGxo N6hqJdy iqopaG0aLri+BSI2iSPgiGV WLT3fUsvtlJG+XLGeUZR2oU uqYGdgOSGauJ4wJOLsB0q0B iAwLjA1 EXzyO1OxpiJ4DASpeLYhIGQ ccWCGwH1biwpdy1vwxmciTg WqEFApKXi4FDb2ZFUjfAxdS iBsZWZ0 NjJ6NAI1pYXxvK0vjNrvjsb wbX7iIzc+LqtszSnyGDK6VT w6J0ZiHct8MBOpqXefTL1lg GFkZGlu Sn1rfQndfCaeHG5tZZOnkko oy151SdYyh8ikBKNxxZIjIG blTIZ1I40ob2O7TUTuDUZmW GP0xZL0 sC2jlDyaengldENokQgnynV rsIuaECivMWhpL684AZKuwC etGkRuCKa8C4IkWpr6ZRRzf JfeWD6a pEOlGYgfHv9ssCvsqTvgJE9 qKPZnhljva390ZtJum7jmXO DabKThPGujEWI9N08oa1E0U CMwMDAw YUB6xJS6kJ3dkQlbigihsHI mdDsgdmVydGljYWwtYWxpZ2 00FRNmtHroVoSdkHm3O3HrO sm4VVNs zGbpBN3nrCGaYYzwDi7fcLy vgFtwOX2rTIFdlzxio852Na Voc8puDVDtaEWpJZgxMFG3W 94cc1U9 XFLzECSwNBK1iHE3rF4yzTn nbjogbGVmdDsgdmVydGljYW htZNhtW936HTUhaDwpYjSqt GllbnQg TUnjTEq2D0EkUdrwfGB+PC9 7GJBfPY98xFJwnSTmt9pycY n8PhQsLHUfKLB8eQtwMGitc 3JkZXIt T75yvWDgb6X0ZGZbgOlhtFB gWgWsoHK9vT4fIYkoavmhr7 tjubdyYgipe5cxmm25lL24D 29sIHdp ZHRoPSIzMCUiIHZhbGlnbj0 jnT9yQs3+WKEfpBC6hYV0fJ 3eQESxDkX9MPzpM141PoBuj CIvPjxj l2wff3wcwNt2IzP5XGAcupQ efIpoPXM1o6BlDw07L04jYO dpZHRoPSIyMCUiIHZhbGlnb y7hfO2n Ii8+PWZvbRH4xUF4aO3hFhL sWiK3IIqeJ130ByHqgCBeSt djT99vJ5PvmZH+LHZmBgb1J CBzdHls XB6kaECxPCwwSp3rHGU4ZmF wQoHgSVhoO1MjWHCwzdpgnm urpBQ8SKGiQBGomY19Iu9nl DogMTBw dYQMvN0ibzoxy3xvagniFsG pINXmUBg0BVb3GUVfpEphGi JiUVA7FeM0AIY5bOJgsC6rd Glnbjog kB8yL6IjRTLttdrxNw70pN2 gHpWrNrK1PDfhDtb+S09XQU cRX6ucXUFSM98DUjOBWW83N K11jFSd u6F1lNZ2U3PoLUIocynswbv zwQY7JKYaODLzvD28vHNaHT qrAi6gs5O4v237JMXeWCEdk C17Qu7b pYewXALcxNRLzP6maumxr0h mgdbsMnThRUYeCUe8ZIe7AX QgnHejFwXcEUN3JvU9EAP5w XEqxB9b gZlsbowkyS1bEae+MDUvMDc xCEa6BNhkkWT+JBMlYBE6wP ioXGdcPMSafU3cCTQmQ2j4F iAwLjA1 TGlaT6NnVQAgjtaeDy88cE8 vPgTmHjT3BCnbM4CkbbP8SS UktEWmCCztXAV1P47wq2M2S CMwMDAw GDT0oHW2rD8elLtauuykcYK mdDsgdmVydGljYWwtYWxpZ2 17AZGftJquStJ4KXjvNVGcU B49SU15 sDFvq0Q3rUL0S3BqMLWtgbg pslnikWF2TVKlDGNmbT85lU UbLQkfMg4qq8D4w819NTRvS DUwaW47 Bo7msTozBCHvgOIJjQ9qlzn ye7xfynozUsOcDTTvRLl8CB z5WLQbzJyeUsAyNBN5PrB7M BO4bXPt cF4eiYefmnwsgE5uCqj+TUF MRTwvdGQ+OIQfKYH6bPjnMD ueEUDkjM7bONIiA2h6VzAkR fN5PUti M8OcNWDtkcdbMb39xN4tUnB jZpQ9IDogM1AnipJ4GSLtfQ EwIBmdXAG6S09kx3J8TMHzV DAwMDA7 rWC2rB7gsOustkmihSCmhVn gdcOryGtdGVpwRVqbA743WZ TwzPtaOxTrZXGvXB8ngGypa GQ+PC90 kc30R5ZbAheeTew9EOHbFXP 6bLX6sI4jKPFiFXkhl3O4lU V7F6AvkpBcwm4uu5dfRXDeL KzvZ72p mCIqz4W2BMEsyCY6NGHqgSk kHsDtxT61Gpr+PGNvbGdyb3 IaHnzdd4pdc1rdePi7YuFdB SIgdmFs nQnrKXD5x5QbHj11B05hUHj pZHRoPSIzMCUiIHZhbGlnbj 5wkG7lVa9+IIIeyPP3kKY9b O7aXrTw NbV0LKerJ118LnLxeLTuAta ex2uxl3rqaXq4RrXyROZpiz LzgRfqZXT4n4WdEc44A6Qsq Efnr5Dl Gbx0dy07tEFva1C0bTC5T3A fWEHckheapJAtlLuyUQ6pPH FzuxrgXOYjjN6lWDXcX3f4E iAwLjA1 BHdtI3TcngD6DULgyPPiBOZ jlIWBpP3dvnora2olyeizUu TzHRRpFJh7ISm8LRHzeUnoH iBsZWZ0 ZiT6NSW1xCVrhY6oiCeavcx zzO2fArr+FAm3y3zomWRnHQ 7nlFQ2LQ79BR54rLLry0P5h OY9T9Qd KQTysiosmmjrxYQ0RMRbXZV qlG67Xl7erAkdWe8mJNLiKM A9HOOkqNMbC5NoxO7sOhLtF DAwMDAw A8SmdHQmFRgmR617QBilBaE 0PRCwpbWuB2ZxTKPwySjiNx I3z0Y4Si7EJF92IL03SU19b TUrk5P8 bFS2L0DqETPbdiqhfnproKF 2PTQuUQUzdO62Oj0sjMslDm 7hOWZyVZK3VKMadEGmJ3Kgt M7pRrUs EDZvRMVyB4HsvGZsSDoyY92 2AMhsEjO3GMUnhgYuT9CjGM JtrTsuAhL0t5S6Oe1TCo61U R21MP59 mZJsy7M1lAN3M6AtPGPqwxc dqonzlYY0ADVyYOFomM30In 4fyAcqPi9wDAUoOLF7OTJxw OMnU7Uy jH1vYiCwWYPnVBEyQ3TwnNR bWBqcA170PFhbIpC4IDIqzo FbB0VnTMAocNlzGyE6j8D3R z6FTNtj ssk7F9CpUjlawMZ+FR80QDL aRL53rCDuzCOey1emmLp3Ca LgRAFcIEP6sVfwVOhgm2XlN HOyC27e bGF (more content not included)... [facility] 36on 05-11-2025 36 TC contacted patient for update on work up. Patient states still working on dental, pain management, podiatry, and hem/onc. Patient informed he will need to be seen for re-evaluation in July, and cardiac will need to be updated in July. Patient states understanding and will keep TC updated. Melinda Keen, RN [facility] BEDSIDE GLUCOSEon 04-27-2025 Glucose [Mass/Vol] 90 mg/dL Normal 65-[address] [facility] Comment on above: Performed By: #### B EDG #### [facility] [address] [facility] [place] [address] VIR Alanine aminotransferase [En zymatic activity/volume] in Serum or PlasmaOrdered By: Will Cerna on 03-26-2025 ALT [Catalytic activity/Vol] 16 U/L Normal 7-52 [facility] Comment on above: Performed By: #### C RP, BMP, CBC, ESR #### [facility] [address] [place] [address] [place] Albumin [Mass/volume] in Ser um or Plasma by Bromocresol green (BCG) dye binding methoOrdered By: Will Cerna on 03-26-2025 Albumin BCG dye [Mass/Vol] 4.3 g/dL 3.5-5.7 [facility] Alkaline phosphatase [Enzyma tic activity/volume] in Serum or PlasmaOrdered By: Will Cerna on 03-26-2025 ALP [Catalytic activity/Vol] 107 U/L High 34-104 [facility] Comment on above: Performed By: #### C RP, BMP, CBC, ESR #### [facility] [address] Aspartate aminotransferase [ Enzymatic activity/volume] in Serum or PlasmaOrdered By: Will Cerna on 03-26-2025 AST [Catalytic activity/Vol] 11 U/L Low 13-39 [facility] Comment on above: Performed By: #### C RP, BMP, CBC, ESR #### [facility] [address] Basic Metabolic Panelon 03-07 Creatinine Clr Calc Pharmacy 14.00 Normal [facility] Comment on above: Result Comment: PERF ORMED BY: [place] [address] PATHOLOGIST CAMPAIGN FUNDRAISER KWADWO SMITH M.D. Performed By: #### C RP, BMP, CBC, ESR #### [facility] [address] [place] [address] [place] GFR/1.73 sq M.predicted MDRD (S/P/Bld) [Vol rate/Area] 6.133 mL/min/{1.73_m2} Normal [facility] Comment on above: Performed By: #### C RP, BMP, CBC, ESR #### [address] Basophils [#/volume] in Bloo d by Automated countOrdered By: Will Cerna on 03-26-2025 Basophils (Bld) [#/Vol] 0.1 10*3/uL Normal 0.0-0.2 [facility] Comment on above: Result Comment: PERF ORMED BY: [place] [address] PATHOLOGIST CAMPAIGN FUNDRAISER KWADWO SMITH M.D. Performed By: #### C RP, BMP, CBC, ESR #### [address] Basophils/100 leukocytes in Blood by Automated countOrdered By: Will Cerna on 03-26-2025 Basophils/100 WBC (Bld) 0.9 % Normal . [facility] Comment on above: Performed By: #### C RP, BMP, CBC, ESR #### [address] Bilirubin.direct [Mass/volum e] in Serum or PlasmaOrdered By: Will Cerna on 03-26-2025 Bilirubin.direct [Mass/Vol] 0.10 mg/dL 0.03-0.18 [facility] Bilirubin.total [Mass/volume ] in Serum or PlasmaOrdered By: Will Cerna on 03-26-2025 Bilirubin [Mass/Vol] 0.4 mg/dL Normal 0.3-1.0 [facility] Comment on above: Performed By: #### C RP, BMP, CBC, ESR #### [address] Calcium [Mass/volume] in Ser um or PlasmaOrdered By: Will Cerna on 03-26-2025 Calcium [Mass/Vol] 9.9 mg/dL Normal 8.6-10.3 [facility] Comment on above: Performed By: #### C RP, BMP, CBC, ESR #### [address] Capillary blood glucose shante urement by glucometer (mass/volume)Ordered By: Will Cerna on 03-26-2025 Glucose [Mass/Vol] 115 mg/dL Normal [facility] Comment on above: Random Glucose Refer ence Range is dependent on time and content of last meal. Glucose of more than 200 mg/dL in a nonstressed, ambulatory subject supports the diagnosis of Diabetes Mellitus. Result Comment: [place] Glucose Reference Range is dependent on time and content of last meal. Glucose of more than 200 mg/dL in a nonstressed, ambulatory subject supports the diagnosis of Diabetes Mellitus. PERFORMED BY: [address] [place] [address] PATHOLOGIST CAMPAIGN FUNDRAISER KWADWO SMITH M.D. Performed By: #### C RP, BMP, CBC, ESR #### [address] Carbon dioxide, total [Moles /volume] in Serum or PlasmaOrdered By: Will Cerna on 03-26-2025 CO2 [Moles/Vol] 24.9 mmol/L Normal 21.0-31.0 [facility] Comment on above: Performed By: #### C RP, BMP, CBC, ESR #### [address] Chloride [Moles/volume] in S james or PlasmaOrdered By: Will Cerna on 03-26-2025 Chloride [Moles/Vol] 102 mmol/L Normal 98-107 [facility] Comment on above: Performed By: #### C RP, BMP, CBC, ESR #### [place] [address] [place] Complete Blood Count Auto Di ffon 03-26-2025 Mean Corpuscular HGB Conc 34.0 g/dL Normal 32.5-35.6 [facility] Comment on above: Performed By: #### C RP, BMP, CBC, ESR #### [address] Monocytes/100 WBC (Bld) 16.12 % Normal 0.00-20.00 [facility] Comment on above: Performed By: #### C RP, BMP, CBC, ESR #### [address] NRBC% 0.0 /100{WBC} Normal 0-0.5 [facility] Comment on above: Performed By: #### C RP, BMP, CBC, ESR #### [address] White Blood Count 10.7 [CFU]/mL High 4.1-10.5 [facility] Comment on above: Performed By: #### C RP, BMP, CBC, ESR #### [address] Creatinine [Mass/volume] in Serum or PlasmaOrdered By: Will Cerna on 03-26-2025 Creatinine [Mass/Vol] 9.33 mg/dL High 0.70-1.30 [facility] Comment on above: Performed By: #### C RP, BMP, CBC, ESR #### [address] ECG 12 lead ECGon 03-26-2025 ECG 12 lead ECG [facility] [place] [address] [place] [address] Electrocardiograph Report Signed Patient: Evans Forte MR#: [id number] : 1970 Acct:[id number] Age/Sex: 55 / M ADM Date: 03/26/25 Loc: ER Room: Type: [facility] ER Attending Dr: Ordering Provider: Will [...] sinus rhythm Confirmed by Chong DIXON DO ([id number]) on 03/26/2025 7:13:58 PM Referred By: Electronically Signed By: Chong DIXON DO Transcribed By: MUS Signed By Chong Dixon DO 0 03/26/25 191 Normal [facility] Eosinophils [#/volume] in Bl ood by Automated countOrdered By: Will Cerna on 03-26-2025 Eosinophils (Bld) [#/Vol] 0.4 10*3/uL Normal 0.0-0.45 [facility] Comment on above: Performed By: #### C RP, BMP, CBC, ESR #### [address] Eosinophils/100 leukocytes i n Blood by Automated countOrdered By: Will Cerna on 03-26-2025 Eosinophils/100 WBC (Bld) 3.5 % Normal . [facility] Comment on above: Performed By: #### C RP, BMP, CBC, ESR #### [address] Erythrocyte distribution wid th [Ratio] by Automated countOrdered By: Will Cerna on 03-26-2025 Erythrocyte distribution width (RBC) [Ratio] 14.6 % Normal 12.0-14.8 [facility] Comment on above: Performed By: #### C RP, BMP, CBC, ESR #### [address] Erythrocytes [#/volume] in B lood by Automated countOrdered By: Will Cerna on 03-26-2025 RBC (Bld) [#/Vol] 3.66 10*6/uL Low 3.90-5.60 [facility] Comment on above: Performed By: #### C RP, BMP, CBC, ESR #### [address] Glucose Poct Glucometerson 0 03-26-2025 Commemt1 Normal [facility] Comment on above: Result Comment: Glu2 : WILL NOTIFY DR/RN PERFORMED BY: [place] [address] PATHOLOGIST CAMPAIGN FUNDRAISER KWADWO SMITH M.D. Performed By: #### C RP, BMP, CBC, ESR #### [address] Glucose [Mass/Vol] 53 mg/dL Off scale low [facility] Comment on above: Result Comment: [place] om Glucose Reference Range is dependent on time and content of last meal. Glucose of more than 200 mg/dL in a nonstressed, ambulatory subject supports the diagnosis of Diabetes Mellitus. Performed By: #### C RP, BMP, CBC, ESR #### [address] Commemt1 Normal [facility] Comment on above: Result Comment: Glu2 : WILL NOTIFY DR/RN PERFORMED BY: [place] [address] PATHOLOGIST CAMPAIGN FUNDRAISER KWADWO SMITH M.D. Performed By: #### C RP, BMP, CBC, ESR #### [address] Glucose [Mass/Vol] 53 mg/dL Off scale low [facility] Comment on above: Result Comment: [place] om Glucose Reference Range is dependent on time and content of last meal. Glucose of more than 200 mg/dL in a nonstressed, ambulatory subject supports the diagnosis of Diabetes Mellitus. Performed By: #### C RP, BMP, CBC, ESR #### [address] Glucose [Mass/Vol] 60 mg/dL Off scale low [facility] Comment on above: Result Comment: [place] om Glucose Reference Range is dependent on time and content of last meal. Glucose of more than 200 mg/dL in a nonstressed, ambulatory subject supports the diagnosis of Diabetes Mellitus. PERFORMED BY: [place] [address] PATHOLOGIST CAMPAIGN FUNDRAISER KWADWO MSITH M.D. Performed By: #### C RP, BMP, CBC, ESR #### [place] [address] [place] Glucose [Mass/volume] in Ser um or PlasmaOrdered By: Will Cerna on 03-26-2025 Glucose [Mass/Vol] 46 mg/dL Off scale low 70-100 [facility] Comment on above: Critical Result Call [...] #### C RP, BMP, CBC, ESR #### [address] Hematocrit [Volume Fraction] of Blood by Automated countOrdered By: Will Cerna on 03-26-2025 Hematocrit (Bld) [Volume fraction] 33.8 % Low 38.8-50.0 [facility] Comment on above: Performed By: #### C RP, BMP, CBC, ESR #### [address] Hemoglobin [Mass/volume] in BloodOrdered By: Will Cerna on 03-26-2025 Hemoglobin (Bld) [Mass/Vol] 11.5 g/dL Low 13.0-17.0 [facility] Comment on above: Performed By: #### C RP, BMP, CBC, ESR #### [facility] [address] Hepatic Panelon 03-26-2025 Albumin [Mass/Vol] 4.3 g/dL Normal 3.5-5.7 [facility] Comment on above: Performed By: #### C RP, BMP, CBC, ESR #### [address] Bilirubin,Indirect 0.3 mg/dL Normal [facility] Comment on above: Performed By: #### C RP, BMP, CBC, ESR #### [facility] [address] Bilirubin.indirect [Mass/Vol] 0.10 mg/dL Normal 0.03-0.18 [facility] Comment on above: Performed By: #### C RP, BMP, CBC, ESR #### [facility] [address] Leukocytes [#/volume] correc scott for nucleated erythrocytes in Blood by Automated counOrdered By: Will Cerna on 03-26-2025 WBC corrected for nucl RBC Auto (Bld) [#/Vol] 10.7 10*3/uL High 4.1-10.5 [facility] Leukocytes [#/volume] in Blo od by Automated countOrdered By: Will Cerna on 03-26-2025 WBC (Bld) [#/Vol] 10.7 10*3/uL High 4.1-10.5 [facility] Comment on above: Performed By: #### C RP, BMP, CBC, ESR #### [address] Lymphocytes [#/volume] in Bl ood by Automated countOrdered By: Will Cerna on 03-26-2025 Lymphocytes (Bld) [#/Vol] 2.3 10*3/uL Normal 1.00-4.8 [facility] Comment on above: Performed By: #### C RP, BMP, CBC, ESR #### [place] [address] [place] Lymphocytes/100 leukocytes i n Blood by Automated countOrdered By: Will Cerna on 03-26-2025 Lymphocytes/100 WBC (Bld) 21.9 % Normal . [facility] Comment on above: Performed By: #### C RP, BMP, CBC, ESR #### [address] MCH [Entitic mass] by Automa scott countOrdered By: Will Cerna on 03-26-2025 MCH (RBC) [Entitic mass] 31.4 pg Normal 27.5-35.2 [facility] Comment on above: Performed By: #### C RP, BMP, CBC, ESR #### [facility] [address] [place] [address] MCHC Auto (RBC) [Mass/Vol]Or dered By: Will Cerna on 03-26-2025 MCHC (RBC) [Mass/Vol] 34.0 g/dL 32.5-35.6 [facility] MCV [Entitic volume] by Auto mated countOrdered By: Will Cerna on 03-26-2025 MCV (RBC) [Entitic vol] 92.3 fL Normal 83.5-101 [facility] Comment on above: Performed By: #### C RP, BMP, CBC, ESR #### [facility] [address] [place] [address] Monocyte distribution width [Entitic volume] in Blood by AutomatedOrdered By: Will Cerna on 03-26-2025 Monocyte distribution width Auto (Bld) [Entitic vol] 16.12 % 0.00-20.00 [facility] Monocytes [#/volume] in Bloo d by Automated countOrdered By: Will Cerna on 03-26-2025 Monocytes (Bld) [#/Vol] 0.9 10*3/uL High 0.0-0.8 [facility] Comment on above: Performed By: #### C RP, BMP, CBC, ESR #### [facility] [address] [place] [address] Monocytes/100 leukocytes in Blood by Automated countOrdered By: Will Cerna on 03-26-2025 Monocytes/100 WBC (Bld) 8.3 % Normal . [facility] Comment on above: Performed By: #### C RP, BMP, CBC, ESR #### [facility] [address] [place] [address] Neutrophils [#/volume] in Bl ood by Automated countOrdered By: Will Cerna on 03-26-2025 Neutrophils (Bld) [#/Vol] 7.0 10*3/uL Normal 1.8-7.7 [facility] Comment on above: Performed By: #### C RP, BMP, CBC, ESR #### [facility] [address] [place] [address] [place] Neutrophils/100 leukocytes i n Blood by Automated countOrdered By: Will Cerna on 03-26-2025 Neutrophils/100 WBC (Bld) 65.4 % Normal . [facility] Comment on above: Performed By: #### C RP, BMP, CBC, ESR #### [facility] [address] No Panel InformationOrdered By: Will Cerna on 03-26-2025 Bedside Glucose Comment See comment [facility] Comment on above: Glu2: WILL NOTIFY DR /RN Estimated GFR (CKD-EPI) 6.133 mL/Min [facility] Creatinine Clearance (Chem 14.00 [facility] Nucleated erythrocytes [Pres ence] in Blood by Automated countOrdered By: Will Cerna on 03-26-2025 Nucleated RBC Auto Ql (Bld) 0.0 /100{WBC} 0-0.5 [facility] Platelet mean volume [Entiti c volume] in Blood by Automated countOrdered By: Will Cerna on 03-26-2025 Platelet mean volume (Bld) [Entitic vol] 7.6 fL Normal 6.6-10.1 [facility] Comment on above: Performed By: #### C RP, BMP, CBC, ESR #### [facility] [address] Platelets [#/volume] in Bloo d by Automated countOrdered By: Will Cerna on 03-26-2025 Platelets (Bld) [#/Vol] 255 10*3/uL Normal 150-450 [facility] Comment on above: Performed By: #### C RP, BMP, CBC, ESR #### [facility] [address] Potassium [Moles/volume] in Serum or PlasmaOrdered By: Will Cerna on 03-26-2025 Potassium [Moles/Vol] 4.8 mmol/L Normal 3.5-5.1 [facility] Comment on above: Performed By: #### C RP, BMP, CBC, ESR #### [facility] [address] Protein [Mass/volume] in Ser um or PlasmaOrdered By: Will Cerna on 03-26-2025 Protein [Mass/Vol] 8.0 g/dL Normal 6.4-8.9 [facility] Comment on above: Performed By: #### C RP, BMP, CBC, ESR #### [facility] [address] Serum globulin measurement b y calculation (mass/volume)Ordered By: Will Cerna on 03-26-2025 Globulin (S) [Mass/Vol] 3.7 g/dL Normal [facility] Comment on above: Performed By: #### C RP, BMP, CBC, ESR #### [address] Serum or plasma albumin/glob ulin mass ratioOrdered By: Will Cerna on 03-26-2025 Albumin/Globulin [Mass ratio] 1.2 {ratio} [facility] Comment on above: Performed By: #### C RP, BMP, CBC, ESR #### [address] Serum or plasma anion gap de terminationOrdered By: Will Cerna on 03-26-2025 Anion gap [Moles/Vol] 15.9 mmol/L High 6.0-15.0 [facility] Comment on above: Performed By: #### C RP, BMP, CBC, ESR #### [address] Serum or plasma non-glucuron idated bilirubin measurement (mass/volume)Ordered By: Will Cerna on 03-26-2025 Bilirubin.indirect [Mass/Vol] 0.3 mg/dL [facility] Sodium [Moles/volume] in Ser um or PlasmaOrdered By: Will Cerna on 03-26-2025 Sodium [Moles/Vol] 138 mmol/L Normal 136-145 [facility] Comment on above: Performed By: #### C RP, BMP, CBC, ESR #### [address] Urea nitrogen [Mass/volume] in Serum or PlasmaOrdered By: Will Cerna on 03-26-2025 Urea nitrogen [Mass/Vol] 85 mg/dL High 03-30 [facility] Comment on above: Performed By: #### C RP, BMP, CBC, ESR #### [facility] [address] [place] [id number] [facility] Laboratory - Drug toxicology Ordered By: Jey Ramos on 02-13-2025 Amphetamines Ql (U) Negative [facility] Benzodiazepines Ql (U) Positive [facility] Cocaine Ql (U) Negative [facility] Opiates Ql (U) Negative [facility] Phencyclidine Ql (U) Negative [facility] No Panel InformationOrdered By: Jey Ramos on 02-13-2025 Urine Barbiturates Screen Negative [facility] Urine Marijuana (THC) Screen Positive [facility] ED Note-Physicianon 02-04-20 ED Note-Physician [...] for 3 day(s), 12 tab(s), Refill(s) 0, [id number], 187, cm, 02/02/25 18:12:00 EDT, Height/Length Dosing, [...] EDT [address], [address] [place] [address] [facility] (1) Additional Instructions: Call Dr for diagnosis based follow up Patient Education Peripheral Neuropathy Acute Pain, Adult Neuropathic Pain Attestation Patient seen and evaluated by the physician assistant federal public defender. Attending physician was present in the emergency department and supervised care. This visit was performed by both the physician and an APC. I performed all aspects of the MDM as documented. This report was transcribed using voice recognition software. Every effort was made to ensure accuracy, however, inadvertently computerized patient navigator mistakes may be present. Appropriate healthcare PPE [...] Use, 01/06 (more content not included)... Normal [facility] Comment on above: Result Comment: Elec tronically Signed By: Star Saucedo PA-C\.br\Date and Time Signed: 02/02/25 18:41 EDT\.br\Electronically Co-Signed By: Delano Benavides DO\.br\Date and Time Co-Signed: 02/03/25 06:04 EDT Basic Metabolic Panelon 01-06 Est, Glom Filt Rate 9 Low - PINF [facility] Comment on above: These results are [...] Interpretation and review of laboratory results Abnormal [facility] Urea nitrogen/Creatinine [Mass ratio] 10 mg/mg 9 - 20 [facility] Basic Metabolic Profon 02-02 Anion gap [Moles/Vol] 16 mmol/L Normal 9-16 [facility] Comment on above: Performed By: #### B MP #### [facility] [address] [place] [address] [employer]: Meredith Nolen MD Calcium [Mass/Vol] 9.3 mg/dL Normal 8.6-10.4 [facility] Comment on above: Performed By: #### B MP #### [facility] [address] [place] [address] [employer]: Meredith Nolen MD Chloride [Moles/Vol] 98 mmol/L Normal 98-107 [facility] Comment on above: Performed By: #### B MP #### [facility] [address] [place] [address] [employer]: Meredith Nolen MD CO2 [Moles/Vol] 23 mmol/L Normal 20-31 [facility] Comment on above: Performed By: #### B MP #### [facility] [address] [place] [address] [employer]: Meredith Nolen MD Creatinine [Mass/Vol] 7.0 mg/dL Critically high 0.70-1.20 [facility] Comment on above: Performed By: #### B MP #### [facility] [address] [place] [address] [employer]: Meredith Nolen MD Glucose [Mass/Vol] 296 mg/dL High 74-99 [facility] Comment on above: Performed By: #### B MP #### [facility] [address] [place] [address] [employer]: Meredith Nolen MD Potassium [Moles/Vol] 6.1 mmol/L Critically high 3.7-5.3 [facility] Comment on above: Specimen hemolysis h as exceeded the interference as defined by Yaima. Value may be falsely increased. Suggest recollection if clinically indicated. Result Comment: Spec imen hemolysis has exceeded the interference as defined by Yaima. Value may be falsely increased. Suggest recollection if clinically indicated. Performed By: #### B MP #### [facility] [address] [place] [address] [employer]: Meredith Nolen MD Sodium [Moles/Vol] 137 mmol/L Normal 136-145 [facility] Comment on above: Performed By: #### B MP #### [facility] [address] [place] [address] [employer]: Meredith Nolen MD Urea nitrogen [Mass/Vol] 69 mg/dL High 6-20 [facility] Comment on above: Performed By: #### B MP #### [address] [place] [address] [employer]: Meredith Nolen MD BUN/CRE Ratio 10 Normal 9-20 [facility] Comment on above: Performed By: #### B MP #### [facility] [address] [place] [address] [place] [address] [employer]: Meredith Nolen MD GFR/1.73 sq M.predicted among non-blacks MDRD (S/P/Bld) [Vol rate/Area] 9 mL/min/{1.73_m2} Low >60 [facility] Comment on above: Result Comment: These results [...] renal tubular secretion. Performed By: #### B #### [facility] [address] [place] [address] [employer]: Meredith Nolen MD CBC with Auto Differentialon 02-02-2025 Basophils (Bld) [#/Vol] 0.04 10*3/uL [facility] Basophils/100 WBC (Bld) 0 % 0 - 2 % [facility] Eosinophils (Bld) [#/Vol] 0.35 10*3/uL [facility] Eosinophils/100 WBC (Bld) 3 % 1 - 4 % [facility] Erythrocyte distribution width (RBC) [Ratio] 14.6 % High 11.8 - 14.4 % [facility] Hematocrit (Bld) [Volume fraction] 31.8 % Low 40.7 - 50.3 % [facility] Hemoglobin (Bld) [Mass/Vol] 10.4 g/dL Low 13.0 - 17.0 g/dL [facility] Immature granulocytes (Bld) [#/Vol] 0.13 10*3/uL [facility] Immature granulocytes/100 WBC (Bld) 1 % High 0 [facility] Interpretation and review of laboratory results Abnormal [facility] Lymphocytes/100 WBC (Bld) 13 % Low 24 - 43 % [facility] Lymphocytes/100 WBC (Bld) 1.35 % [facility] MCH (RBC) [Entitic mass] 31.3 pg 25.2 - 33.5 pg [facility] MCHC (RBC) [Mass/Vol] 32.7 g/dL 28.4 - 34.8 g/dL [facility] MCV (RBC) [Entitic vol] 95.8 fL 82.6 - 102.9 fL [facility] Monocytes/100 WBC (Bld) 7 % 3 - 12 % [facility] Monocytes/100 WBC (Bld) 0.76 % [facility] Neutrophils/100 WBC (Bld) 76 % High 36 - 65 % [facility] Nucleated RBC/100 WBC (Bld) [Ratio] 0 % 0.0 per 100 WBC [facility] Platelet mean volume (Bld) [Entitic vol] 10.1 fL 8.1 - 13.5 fL [facility] Platelets (Bld) [#/Vol] 208 10*3/uL [facility] RBC (Bld) [#/Vol] 3.32 10*6/uL Low 4.21 - 5.7 7 m/uL [facility] Segmented neutrophils/100 WBC (Bld) 7.75 % [facility] WBC other (Bld) [#/Vol] 10.4 [facility] CBC with Diffon 02-02-2025 Abs. Basophil 0.04 k/uL Normal 0.00-0.20 [facility] Comment on above: Performed By: #### C DP, REJEC #### [facility] [address] [place] [address] [place] [address] [employer]: Meredith Nolen MD Abs.Imm.Granulocyte 0.13 k/uL Normal 0.00-0.30 [facility] Comment on above: Performed By: #### C DP, REJEC #### [address] [place] [address] [employer]: Meredith Nolen MD Abs.Neutrophil (Seg) 7.75 k/uL Normal 1.50-8.10 [facility] Comment on above: Performed By: #### C DP, REJEC #### [address] [place], [facility] [employer]: Meredith Nolen MD Basophils/100 WBC (Bld) 0 % Normal 0-2 [facility] Comment on above: Performed By: #### C DP, REJEC #### [address] [place], [facility] [employer]: Meredith Nolen MD Eosinophils (Bld) [#/Vol] 0.35 10*3/uL Normal 0.00-0.44 [facility] Comment on above: Performed By: #### C DP, REJEC #### [facility] [address] [place] [address] Dr[address] [place], [place] [address] [employer]: Meredith Nolen MD Eosinophils/100 WBC (Bld) 3 % Normal 1-4 [facility] Comment on above: Performed By: #### C DP, REJEC #### [address] [place], [facility] [employer]: Meredith Nolen MD Erythrocyte distribution width (RBC) [Ratio] 14.6 % High 11.8-14.4 [facility] Comment on above: Performed By: #### C DP, REJEC #### [address] [place], [place] [address] [employer]: Meredith Nolen MD Hematocrit (Bld) [Volume fraction] 31.8 % Low 40.7-50.3 [facility] Comment on above: Performed By: #### C DP, REJEC #### [address] [place], [place] [address] [employer]: Meredith Nolen MD Hemoglobin (Bld) [Mass/Vol] 10.4 g/dL Low 13.0-17.0 [facility] Comment on above: Performed By: #### C DP, REJEC #### [address] [place], [place] [address] [employer]: Meredith Nolen MD Immature granulocytes/100 WBC (Bld) 1 % High 0 [facility] Comment on above: Performed By: #### C DP, REJEC #### [address] [place], [facility]83 [employer]: Meredith Nolen MD Lymphocytes (Bld) [#/Vol] 1.35 10*3/uL Normal 1.10-3.70 [facility] Comment on above: Performed By: #### C DP, REJEC #### [facility] [address] [place], [facility]83 [employer]: Meredith Nolen MD Lymphocytes/100 WBC (Bld) 13 % Low 24-43 [facility] Comment on above: Performed By: #### C DP, REJEC #### [address] [place], [facility]83 [employer]: Meredith Nolen MD MCH (RBC) [Entitic mass] 31.3 pg Normal 25.2-33.5 [facility] Comment on above: Performed By: #### C DP, REJEC #### [address] [place], [place] [address] [employer]: Meredith Nolen MD MCHC (RBC) [Mass/Vol] 32.7 g/dL Normal 28.4-34.8 [facility] Comment on above: Performed By: #### C DP, REJEC #### [address] [place], [place] [address] [employer]: Meredith Nolen MD MCV (RBC) [Entitic vol] 95.8 fL Normal 82.6-102.9 [facility] Comment on above: Performed By: #### C DP, REJEC #### [address] [place], [place] [address] [employer]: Meredith Nolen MD Monocytes (Bld) [#/Vol] 0.76 10*3/uL Normal 0.10-1.20 [facility] Comment on above: Performed By: #### C DP, REJEC #### [address] [place], [facility]83 [employer]: Meredith Nolen MD Monocytes/100 WBC (Bld) 7 % Normal 3-12 [facility] Comment on above: Performed By: #### C DP, REJEC #### [address] [place] [id number] [employer]: Meredith Nolen MD Neutrophil (Seg) 76 % High 36-65 [facility] Comment on above: Performed By: #### C DP, REJEC #### [facility] [address] [place], [place] [id number] [employer]: Meredith Nolen MD NRBC Automated 0.0 per [address] [facility] Comment on above: Performed By: #### C DP, REJEC #### [facility] [address] [place], [place] [address] [employer]: Meredith Nolen MD Platelet mean volume (Bld) [Entitic vol] 10.1 fL Normal 8.1-13.5 [facility] Comment on above: Performed By: #### C DP, REJEC #### [address] [place], [place] [address] [employer]: Meredith Nolen MD Platelets (Bld) [#/Vol] 208 10*3/uL Normal 138-453 [facility] Comment on above: Performed By: #### C DP, REJEC #### [address] [place], [place] [address] [employer]: Meredith Nolen MD RBC (Bld) [#/Vol] 3.32 10*6/uL Low 4.21-5.77 [facility] Comment on above: Performed By: #### C DP, REJEC #### [facility] [address] [place], [place] [address] [employer]: Meredith Nolen MD WBC (Bld) [#/Vol] 10.4 10*3/uL Normal 3.5-11.3 [facility] Comment on above: Performed By: #### C DP, REJEC #### [facility] [address] [place], [place] [address] [employer]: Meredith Nolen MD ED Clinical Summaryon 2024 ED Clinical Summary ED Clinical Summary [address] [address] ED Clinical Summary Person Information Name: EVANS FORTE Jr Kiana/[facility] Age: 55 Years : 1970 Sex: Male Language: Croatian PCP: IDANIA RICKETTS DO Marital Status: Visit [...] 02/02/2025 18:32:45 02/02/2025 18:32:45 02/02/2025 18:32:45 ADDRESS: [facility] [address] [facility] [id number] PHYS DOC NOTES: MEDICAL INFORMATION: Prescriptions Given: New Medications [id number], [address] [place], [place] [id number], [phone] acetaminophen-oxycodone (acetaminophen-oxycodon e 325 mg-5 mg Tab) 1 Tablets By Mouth every 6 hours as needed for pain for 3 Days. Refills: 0. PATIENT EDUCATION INFORMATION: Instructions: Peripheral Neuropathy; Acute Pain, Adult; Neuropathic Pain Follow up: With: Address: When: IDANIA RICKETTS [address] [facility], [address] [address] [facility] () In 3 days 02/05/2025 Comments: Call Dr for diagnosis based follow up DIAGNOSIS: Neuropathic pain Normal [facility] ED Patient Summaryon 025 ED Patient Summary ED Patient Summary [address] [address] Patient Discharge Instructions Person Information Name: EVANS FORTE Jr Age: 55 Years Arrival Date: 02/02/2025 18:02:34 Discharge Diagnosis: Neuropathic pain Primary Care Physician: IDANIA RICKETTS DO Provider Information Primary Provider: Delano Benavides DO [employer] Operator:Star Saucedo PA-C The exam and treatment you received in the Emergency Department were for an urgent problem and are not intended as complete care. It is important that you follow up with a doctor, nurse practitioner, or physician???s assistant federal public defender for ongoing care. If your symptoms become [...] With: Address: When: IDANIA RICKETTS [address], [address] [place] [address] [employer] In 3 days 02/05/2025 Comments: Call Dr [...] opioids can be used to help relieve zkkbfufj-pu-aoples pain and are often prescribed following a [...] and over (more content not included)... Normal [facility] Specimen Rejectionon 025 Reason for rejection Unable to perform testing: Specimen hemolyzed. Normal [facility] Comment on above: Performed By: #### C DP, REJEC #### [facility] [address] [place], [place] [address] [employer]: Meredith Nolen MD Source of sample .BLOOD Normal [facility] Comment on above: Performed By: #### C DP, REJEC #### [facility] [address] [place] [address] [employer]: Meredith Nolen MD Test ordered BMP Normal [facility] Comment on above: Performed By: #### C DP, REJEC #### [facility] [address] [place] [address] [employer]: Meredith Nolen MD XR FOOT RIGHT (MIN [...] Tami Concepcion MD 02/02/[address] [facility] XR Foot - right 3 Viewson 1. Soft tissue ulceration along the plantar aspect of the posterior heel. 2. No radiographic evidence of acute osteomyelitis. [facility] EXAMINATION: THREE XRAY VIEWS OF THE [...] posterior heel. No evidence of osseous erosions. [facility] Tami Concepcion MD - 02/02/2025 EXAMINATION: [...] 2. No radiographic evidence of acute osteomyelitis. [facility] Radiology Study observation (narrative) [facility] XR Foot - right 3 ViewsOrder ed By: Tami Concepcion on 02-02-2025 [facility] Work Phone: 36on 01-15-2025 36 Contacted patient regarding pyreynold ford. LVM to contact clinic. [facility] 36on 01-02-2025 36 Please advise on nex t step. Medicare will not cover Nucynta for his diagnosis. [facility] 36 Patient asking if he can get some pain meds ordered since his SCS trial today was canceled due to not being approved. Nucynta was not approved by his insurance. Patient aware we will contact him after hearing back from provider. Thanks [facility] Orders Onlyon 01-02-2025 Orders Only [id number] Evans Forte 1970 M Date Provider Department [...] Sister Maternal Grandmother Daughter Father's Brother Alive [facility] Telephoneon 01-02-2025 Telephone [phone] Evans Forte 1970 M Date Provider Department Center 01/02/2025 [id number]-[facility] Family History Problem [...] Maternal Grandmother Daughter Father's Brother Alive Normal [facility] Alanine aminotransferase [En zymatic activity/volume] in Serum or PlasmaOrdered By: Ivana Salcedo on 01-01-2025 ALT [Catalytic activity/Vol] Alanine aminotransferase [Enzymatic activity/volume] in Serum or Plasma [facility] ALT [Catalytic activity/Vol] 28 U/L Normal [facility] Comment on above: Performed By: #### C RP, BMP, CBC, ESR #### [facility] [address] [place] [address] [place] Albumin [Mass/volume] in Ser um or Plasma by Bromocresol green (BCG) dye binding methoOrdered By: Ivana Salcedo on 01-01-2025 Albumin BCG dye [Mass/Vol] Albumin [Mass/volume] in Serum or Plasma by Bromocresol green (BCG) dye binding metho 3.5-5.7 [facility] Albumin BCG dye [Mass/Vol] 4.4 g/dL 3.5-5.7 [facility] Alkaline phosphatase [Enzyma tic activity/volume] in Serum or PlasmaOrdered By: Ivana Salcedo on 01-01-2025 ALP [Catalytic activity/Vol] Alkaline phosphatase [Enzymatic activity/volume] in Serum or Plasma 34-104 [facility] ALP [Catalytic activity/Vol] 88 U/L Normal [facility] Comment on above: Performed By: #### C RP, BMP, CBC, ESR #### [facility] [address] [place] [address] [place] Aspartate aminotransferase [ Enzymatic activity/volume] in Serum or PlasmaOrdered By: Ivana Salcedo on 01-01-2025 AST [Catalytic activity/Vol] Aspartate aminotransferase [Enzymatic activity/volume] in Serum or Plasma Low 13-39 [facility] AST [Catalytic activity/Vol] 10 U/L Low 13-39 [facility] Comment on above: Performed By: #### C RP, BMP, CBC, ESR #### [facility] [address] Basophils Auto (Bld) [#/Vol] Ordered By: Ivana Salcedo on 01-01-2025 Basophils (Bld) [#/Vol] Automated basophil count 0.0-0.2 [facility] Basophils [#/volume] in Bloo d by Automated countOrdered By: Ivana Salcedo on 01-01-2025 Basophils (Bld) [#/Vol] 0.1 10*3/uL Normal 0.0-0.2 [facility] Comment on above: Result Comment: PERF ORMED BY: [address] [place] [address] PATHOLOGIST CAMPAIGN FUNDRAISER KIM ELLIOTT M.D. Performed By: #### C RP, BMP, CBC, ESR #### [address] Basophils/100 WBC Auto (Bld) Ordered By: Ivana Salcedo on 01-01-2025 Basophils/100 WBC (Bld) Automated basophil % . [facility] Basophils/100 leukocytes in Blood by Automated countOrdered By: Ivana Salcedo on 01-01-2025 Basophils/100 WBC (Bld) 0.8 % Normal . [facility] Comment on above: Performed By: #### C RP, BMP, CBC, ESR #### [address] Bilirubin.total [Mass/volume ] in Serum or PlasmaOrdered By: Ivana Salcedo on 01-01-2025 Bilirubin [Mass/Vol] Bilirubin.total [Mass/volume] in Serum or Plasma 0.3-1.0 [facility] Bilirubin [Mass/Vol] 0.5 mg/dL Normal 0.3-1.0 [facility] Comment on above: Performed By: #### C RP, BMP, CBC, ESR #### [facility] [address] COVID Cepheid NegativeOrdere d By: Ivana Salcedo on 01-01-2025 SARS-CoV-2 (COVID-19) Ab IA Ql COVID Cepheid Negative [facility] Comment on above: This is a duplicate Cepheid Xpert Xpress CoV-2/Flu/RSV Plus RNA by RT-PCR result to be used for statistical tracking purpose only. SARS-CoV-2 (COVID-19) Ab IA Ql Negative Negative [facility] Comment on above: This is [...] or Cepheid Disclaimer revoked sooner. PERFORMED BY: [place] [address] PATHOLOGIST CAMPAIGN FUNDRAISER KIM ELLIOTT M.D. Normal [facility] Comment on above: Performed By: #### C RP, BMP, CBC, ESR #### [address] Calcium [Mass/volume] in Ser um or PlasmaOrdered By: Ivana Salcedo on 01-01-2025 Calcium [Mass/Vol] Calcium [Mass/volume ] in Serum or Plasma 8.6-10.3 [facility] Calcium [Mass/Vol] 9.2 mg/dL Normal 8.6-10.3 [facility] Comment on above: Performed By: #### C RP, BMP, CBC, ESR #### [address] Carbon dioxide, total [Moles /volume] in Serum or PlasmaOrdered By: Ivana Salcedo on 01-01-2025 CO2 [Moles/Vol] Carbon dioxide, tota l [Moles/volume] in Serum or Plasma 21.0-31.0 [facility] CO2 [Moles/Vol] 27.1 mmol/L Normal 21.0-31.0 [facility] Comment on above: Performed By: #### C RP, BMP, CBC, ESR #### [place] [id number] [facility] Cepheid COVID PCR Negativeon 01-01-2025 SARS-CoV-2 (COVID-19) RNA SHAY+probe Ql (Unsp spec) Negative Normal Negative [facility] Comment on above: Result Comment: This is a duplicate [employer] Xpert Xpress CoV-2/Flu/RSV Plus RNA by RT-PCR result to be used for statistical tracking purpose only. PERFORMED BY: [place] [address] PATHOLOGIST CAMPAIGN FUNDRAISER KIM ELLIOTT M.D. Performed By: #### C RP, BMP, CBC, ESR #### [address] Chloride [Moles/volume] in S james or PlasmaOrdered By: Ivana Salcedo on 01-01-2025 Chloride [Moles/Vol] Chloride [Moles/vol ume] in Serum or Plasma 98-107 [facility] Chloride [Moles/Vol] 99 mmol/L Normal 98-107 [facility] Comment on above: Performed By: #### C RP, BMP, CBC, ESR #### [address] Complete Blood Count Auto Di ffon 01-01-2025 Mean Corpuscular HGB Conc 34.3 g/dL Normal 32.5-35.6 [facility] Comment on above: Performed By: #### C RP, BMP, CBC, ESR #### [place] [address] [place] Monocytes/100 WBC (Bld) 16.78 % Normal 0.00-20.00 [facility] Comment on above: Performed By: #### C RP, BMP, CBC, ESR #### [address] NRBC% 0.0 /100{WBC} Normal 0-0.5 [facility] Comment on above: Performed By: #### C RP, BMP, CBC, ESR #### [address] Comprehensive Metabolic Pane nick 01-01-2025 Albumin [Mass/Vol] 4.4 g/dL Normal 3.5-5.7 [facility] Comment on above: Performed By: #### C RP, BMP, CBC, ESR #### [facility] [address] Creatinine Clr Calc Pharmacy 20.53 Normal [facility] Comment on above: Result Comment: PERF ORMED BY: [place] [address] PATHOLOGIST CAMPAIGN FUNDRAISER KIM ELLIOTT M.D. Performed By: #### C RP, BMP, CBC, ESR #### [facility] [address] Estimated GFR 9.886 mL/Min Normal [facility] Comment on above: Performed By: #### C RP, BMP, CBC, ESR #### [address] Creatinine [Mass/volume] in Serum or PlasmaOrdered By: Ivana Salcedo on 01-01-2025 Creatinine [Mass/Vol] Creatinine [Mass/volume] in Serum or Plasma High 0.70-1.30 [facility] Creatinine [Mass/Vol] 6.30 mg/dL High 0.70-1.30 [facility] Comment on above: Performed By: #### C RP, BMP, CBC, ESR #### [address] D-Dimer High Sensitivityon 0 01-01-2025 D-Dimer High Sensitivity <200 Normal 0-243 [facility] Comment on above: [...] coagulation studies. Please contact the laboratory at [phone] for redraw instructions. PERFORMED BY: [place] [address] PATHOLOGIST CAMPAIGN FUNDRAISER KIM ELLIOTT M.D. Performed By: #### C RP, BMP, CBC, ESR #### [address] ECG 12 lead ECGon 01-01-2025 ECG 12 lead ECG [facility] [place] [address] [place] [address] Electrocardiograph Report Signed Patient: Evans Forte MR#: [id number] : 1970 Acct:[id number] Age/Sex: 54 / M ADM Date: 01/01/25 Loc: ER Room: Type: [facility] ER Attending Dr: Ordering Provider: Ivana [...] inversion avl Confirmed by Jessica Al MD ([id number]) on 01/02/2025 7:26:58 AM Referred By: Electronically Signed By: Jessica Al MD Transcribed By: MUS Signed By Jessica Al MD 12/06 05/31 0386 Normal [facility] Eosinophils Auto (Bld) [#/Vo l]Ordered By: Ivana Salcedo on 01-01-2025 Eosinophils (Bld) [#/Vol] Automated eosinophil count 0.0-0.45 [facility] Eosinophils [#/volume] in Bl ood by Automated countOrdered By: Ivana Salcedo on 01-01-2025 Eosinophils (Bld) [#/Vol] 0.2 10*3/uL Normal 0.0-0.45 [facility] Comment on above: Performed By: #### C RP, BMP, CBC, ESR #### [facility] [address] Eosinophils/100 WBC Auto (Bl d)Ordered By: Ivana Salcedo on 01-01-2025 Eosinophils/100 WBC (Bld) Automated eosinophil % . [facility] Eosinophils/100 leukocytes i n Blood by Automated countOrdered By: Ivana Salcedo on 01-01-2025 Eosinophils/100 WBC (Bld) 2.1 % Normal . [facility] Comment on above: Performed By: #### C RP, BMP, CBC, ESR #### [facility] [address] [place] [address] Erythrocyte distribution wid th Auto (RBC) [Ratio]Ordered By: Ivana Salcedo on 01-01-2025 Erythrocyte distribution width (RBC) [Ratio] Erythrocyte distribution width [Ratio] by Automated count High 12.0-14.8 [facility] Erythrocyte distribution wid th [Ratio] by Automated countOrdered By: Ivana Salcedo on 01-01-2025 Erythrocyte distribution width (RBC) [Ratio] 15.7 % High 12.0-14.8 [facility] Comment on above: Performed By: #### C RP, BMP, CBC, ESR #### [facility] [address] [place] [address] Erythrocytes [#/volume] in B lood by Automated countOrdered By: Ivana Salcedo on 01-01-2025 RBC (Bld) [#/Vol] 3.84 10*6/uL Low 3.90-5.60 [facility] Comment on above: Performed By: #### C RP, BMP, CBC, ESR #### [facility] [address] [place] [address] Fibrin D-dimer [Presence] in Platelet poor plasma by Latex agglutinationOrdered By: Ivana Salcedo on 01-01-2025 Fibrin D-dimer LA Ql (PPP) Fibrin D-dimer [Presence] in Platelet poor plasma by Latex agglutination 0-243 [facility] Comment on above: The reference [...] coagulation studies. Please contact the laboratory at [phone] for redraw instructions. Fibrin D-dimer LA Ql (PPP) < 200 ng/mL 0-243 [facility] Comment on above: The reference [...] coagulation studies. Please contact the laboratory at [phone] for redraw instructions. Globulin Calc (S) [Mass/Vol] Ordered By: Ivana Salcedo on 01-01-2025 Globulin (S) [Mass/Vol] Serum globulin measurement by calculation (mass/volume) [facility] Glucose [Mass/volume] in Ser um or PlasmaOrdered By: Ivana Salcedo on 01-01-2025 Glucose [Mass/Vol] Glucose [Mass/volume ] in Serum or Plasma High 70-100 [facility] Comment on above: ADA recommended refe rence rangeRandom Glucose Reference Range is dependent on time and content of last meal. Glucose of more than 200 mg/dL in a nonstressed, ambulatory subject supports the diagnosis of Diabetes Mellitus. Glucose [Mass/Vol] 185 mg/dL High 70-100 [facility] Comment on above: ADA recommended refe rence rangeRandom Glucose Reference Range is dependent on time and content of last meal. Glucose of more than 200 mg/dL in a nonstressed, ambulatory subject supports the diagnosis of Diabetes Mellitus. Result Comment: [place] om Glucose Reference Range is dependent on time and content of last meal. Glucose of more than 200 mg/dL in a nonstressed, ambulatory subject supports the diagnosis of Diabetes Mellitus. ADA recommended reference range Performed By: #### C RP, BMP, CBC, ESR #### [address] Hematocrit Auto (Bld) [Volum e fraction]Ordered By: Ivana Salcedo on 01-01-2025 Hematocrit (Bld) [Volume fraction] Hematocrit [Volume Fraction] of Blood by Automated count Low 38.8-50.0 [facility] Hematocrit [Volume Fraction] of Blood by Automated countOrdered By: Ivana Salcedo on 01-01-2025 Hematocrit (Bld) [Volume fraction] 35.0 % Low 38.8-50.0 [facility] Comment on above: Performed By: #### C RP, BMP, CBC, ESR #### [address] Hemoglobin [Mass/volume] in BloodOrdered By: Ivana Salcedo on 01-01-2025 Hemoglobin (Bld) [Mass/Vol] Hemoglobin [Mass/volume] in Blood Low 13.0-17.0 [facility] Hemoglobin (Bld) [Mass/Vol] 12.0 g/dL Low 13.0-17.0 [facility] Comment on above: Performed By: #### C RP, BMP, CBC, ESR #### [address] Leukocytes [#/volume] correc scott for nucleated erythrocytes in Blood by Automated counOrdered By: Ivana Salcedo on 01-01-2025 WBC corrected for nucl RBC Auto (Bld) [#/Vol] Leukocytes [#/volume] corrected for nucleated erythrocytes in Blood by Automated coun 4.1-10.5 [facility] WBC corrected for nucl RBC Auto (Bld) [#/Vol] 9.3 10*3/uL 4.1-10.5 [facility] Leukocytes [#/volume] in Blo od by Automated countOrdered By: Ivana Salcedo on 01-01-2025 WBC (Bld) [#/Vol] 9.3 10*3/uL Normal 4.1-10.5 [facility] Comment on above: Performed By: #### C RP, BMP, CBC, ESR #### [facility] [address] [place] [address] Lymphocytes Auto (Bld) [#/Vo l]Ordered By: Ivana Salcedo on 01-01-2025 Lymphocytes (Bld) [#/Vol] Lymphocytes [#/volume] in Blood by Automated count 1.00-4.8 [facility] Lymphocytes [#/volume] in Bl ood by Automated countOrdered By: Ivana Salcedo on 01-01-2025 Lymphocytes (Bld) [#/Vol] 1.4 10*3/uL Normal 1.00-4.8 [facility] Comment on above: Performed By: #### C RP, BMP, CBC, ESR #### [facility] [address] [place] [address] Lymphocytes/100 WBC Auto (Bl d)Ordered By: Ivana Salcedo on 01-01-2025 Lymphocytes/100 WBC (Bld) Lymphocytes/100 leukocytes in Blood by Automated count . [facility] Lymphocytes/100 leukocytes i n Blood by Automated countOrdered By: Ivana Salcedo on 01-01-2025 Lymphocytes/100 WBC (Bld) 14.7 % Normal . [facility] Comment on above: Performed By: #### C RP, BMP, CBC, ESR #### [facility] [address] [place] [address] MCH Auto (RBC) [Entitic mass ]Ordered By: Ivana Salcedo on 01-01-2025 MCH (RBC) [Entitic mass] MCH [Entitic mass] by Automated count 27.5-35.2 [facility] MCH [Entitic mass] by Automa scott countOrdered By: Ivana Salcedo on 01-01-2025 MCH (RBC) [Entitic mass] 31.3 pg Normal 27.5-35.2 [facility] Comment on above: Performed By: #### C RP, BMP, CBC, ESR #### [facility] [address] MCHC Auto (RBC) [Mass/Vol]Or dered By: Ivana Salcedo on 01-01-2025 MCHC (RBC) [Mass/Vol] MCHC [Mass/volume] by Automated count 32.5-35.6 [facility] MCHC (RBC) [Mass/Vol] 34.3 g/dL 32.5-35.6 [facility] MCV Auto (RBC) [Entitic vol] Ordered By: Ivana Salcedo on 01-01-2025 MCV (RBC) [Entitic vol] MCV [Entitic volume] by Automated count 83.5-101 [facility] MCV [Entitic volume] by Auto mated countOrdered By: Ivana Salcedo on 01-01-2025 MCV (RBC) [Entitic vol] 91.2 fL Normal 83.5-101 [facility] Comment on above: Performed By: #### C RP, BMP, CBC, ESR #### [facility] [address] [place] [address] Monocyte distribution width [Entitic volume] in Blood by AutomatedOrdered By: Ivana Salcedo on 01-01-2025 Monocyte distribution width Auto (Bld) [Entitic vol] Monocyte distribution width [Entitic volume] in Blood by Automated 0.00-20.00 [facility] Monocyte distribution width Auto (Bld) [Entitic vol] 16.78 % 0.00-20.00 [facility] Monocytes Auto (Bld) [#/Vol] Ordered By: Ivana Salcedo on 01-01-2025 Monocytes (Bld) [#/Vol] Automated blood monocyte count 0.0-0.8 [facility] Monocytes [#/volume] in Bloo d by Automated countOrdered By: Ivana Salcedo on 01-01-2025 Monocytes (Bld) [#/Vol] 0.8 10*3/uL Normal 0.0-0.8 [facility] Comment on above: Performed By: #### C RP, BMP, CBC, ESR #### [facility] [address] [place] [address] Monocytes/100 WBC Auto (Bld) Ordered By: Ivana Salcedo on 01-01-2025 Monocytes/100 WBC (Bld) Automated monocyte % . [facility] Monocytes/100 leukocytes in Blood by Automated countOrdered By: Ivana Salcedo on 01-01-2025 Monocytes/100 WBC (Bld) 8.8 % Normal . [facility] Comment on above: Performed By: #### C RP, BMP, CBC, ESR #### [address] Neutrophils Auto (Bld) [#/Vo l]Ordered By: Ivana Salcedo on 01-01-2025 Neutrophils (Bld) [#/Vol] Neutrophils [#/volume] in Blood by Automated count 1.8-7.7 [facility] Neutrophils [#/volume] in Bl ood by Automated countOrdered By: Ivana Salcedo on 01-01-2025 Neutrophils (Bld) [#/Vol] 6.9 10*3/uL Normal 1.8-7.7 [facility] Comment on above: Performed By: #### C RP, BMP, CBC, ESR #### [facility] [address] [place] [address] Neutrophils/100 WBC Auto (Bl d)Ordered By: Ivana Salcedo on 01-01-2025 Neutrophils/100 WBC (Bld) Automated neutrophil % . [facility] Neutrophils/100 leukocytes i n Blood by Automated countOrdered By: Ivana Salcedo on 01-01-2025 Neutrophils/100 WBC (Bld) 73.6 % Normal . [facility] Comment on above: Performed By: #### C RP, BMP, CBC, ESR #### [facility] [address] [place] [address] No Panel InformationOrdered By: Ivana Salcedo on 01-01-2025 Estimated GFR (CKD-EPI) 9.886 mL/Min [facility] Creatinine Clearance (Chem 20.53 [facility] Nucleated erythrocytes [Pres ence] in Blood by Automated countOrdered By: Ivana Salcedo on 01-01-2025 Nucleated RBC Auto Ql (Bld) Nucleated erythrocytes [Presence] in Blood by Automated count 0-0.5 [facility] Nucleated RBC Auto Ql (Bld) 0.0 /100{WBC} 0-0.5 [facility] Platelet mean volume Auto (B ld) [Entitic vol]Ordered By: Ivana Salcedo on 01-01-2025 Platelet mean volume (Bld) [Entitic vol] Platelet mean volume [Entitic volume] in Blood by Automated count 6.6-10.1 [facility] Platelet mean volume [Entiti c volume] in Blood by Automated countOrdered By: Ivana Salcedo on 01-01-2025 Platelet mean volume (Bld) [Entitic vol] 7.4 fL Normal 6.6-10.1 [facility] Comment on above: Performed By: #### C RP, BMP, CBC, ESR #### [facility] [address] [place] [address] [place] Platelets Auto (Bld) [#/Vol] Ordered By: Ivana Salcedo on 01-01-2025 Platelets (Bld) [#/Vol] Platelets [#/volume] in Blood by Automated count 150-450 [facility] Platelets [#/volume] in Bloo d by Automated countOrdered By: Ivana Salcedo on 01-01-2025 Platelets (Bld) [#/Vol] 304 10*3/uL Normal 150-450 [facility] Comment on above: Performed By: #### C RP, BMP, CBC, ESR #### [facility] [address] [place] [address] [place] Potassium [Moles/volume] in Serum or PlasmaOrdered By: Ivana Salcedo on 01-01-2025 Potassium [Moles/Vol] Potassium [Moles/volume] in Serum or Plasma 3.5-5.1 [facility] Potassium [Moles/Vol] 4.8 mmol/L Normal 3.5-5.1 [facility] Comment on above: Performed By: #### C RP, BMP, CBC, ESR #### [facility] [address] Protein [Mass/volume] in Ser um or PlasmaOrdered By: Ivana Salcedo on 01-01-2025 Protein [Mass/Vol] Protein [Mass/volume ] in Serum or Plasma 6.4-8.9 [facility] Protein [Mass/Vol] 8.4 g/dL Normal 6.4-8.9 [facility] Comment on above: Performed By: #### C RP, BMP, CBC, ESR #### [facility] [address] RBC Auto (Bld) [#/Vol]Ordere d By: Ivana Salcedo on 01-01-2025 RBC (Bld) [#/Vol] Erythrocytes [#/volu me] in Blood by Automated count Low 3.90-5.60 [facility] Respiratory specimen influen za A virus, influenza B virus, respiratory syncytical virOrdered By: Ivana Salcedo on 01-01-2025 SARS-CoV-2 (COVID-19) RNA SHAY+probe Ql (Unsp spec) Respiratory specimen influenza A virus, influenza B virus, respiratory syncytical vir [facility] SARS-CoV-2 (COVID-19) RNA SHAY+probe Ql (Unsp spec) [facility] Serum globulin measurement b y calculation (mass/volume)Ordered By: Ivana Salcedo on 01-01-2025 Globulin (S) [Mass/Vol] 4.0 g/dL Normal [facility] Comment on above: Performed By: #### C RP, BMP, CBC, ESR #### [facility] [address] Serum or plasma albumin/glob ulin mass ratioOrdered By: Ivana Salcedo on 01-01-2025 Albumin/Globulin [Mass ratio] Serum or plasma albumin/globulin mass ratio [facility] Albumin/Globulin [Mass ratio] 1.1 {ratio} [facility] Comment on above: Performed By: #### C RP, BMP, CBC, ESR #### [address] Serum or plasma anion gap de terminationOrdered By: Ivana Salcedo on 01-01-2025 Anion gap [Moles/Vol] Serum or plasma an ion gap determination High 6.0-15.0 [facility] Anion gap [Moles/Vol] 15.7 mmol/L High 6.0-15.0 [facility] Comment on above: Performed By: #### C RP, BMP, CBC, ESR #### [address] Sodium [Moles/volume] in Ser um or PlasmaOrdered By: Ivana Salcedo on 01-01-2025 Sodium [Moles/Vol] Sodium [Moles/volume ] in Serum or Plasma 136-145 [facility] Sodium [Moles/Vol] 137 mmol/L Normal 136-145 [facility] Comment on above: Performed By: #### C RP, BMP, CBC, ESR #### [address] Troponin I High Sensitivityo n 01-01-2025 Troponin I High Sensitivity 12 Normal 0-20 [facility] Comment on above: Result Comment: The Troponin units of report have been changed to meet the Chest Pain Accreditation requirement, element EC5.M1l2. Troponin units are changed from pg/ml to ng/L. Also, the decimal is removed and results are in whole numbers. PERFORMED BY: [place] [address] PATHOLOGIST CAMPAIGN FUNDRAISER KIM ELLIOTT M.D. Performed By: #### C RP, BMP, CBC, ESR #### [address] Troponin I.cardiac [Mass/vol ume] in Serum or Plasma by Detection limit <= 0.01 ng/Ordered By: Ivana Salcedo on 01-01-2025 Troponin I.cardiac DL <= 0.01 ng/mL [Mass/Vol] Troponin I.cardiac [Mass/volume] in Serum or Plasma by Detection limit <= 0.01 ng/ [facility] Comment on above: The Troponin [...] DL <= 0.01 ng/mL [Mass/Vol] 12 ng/L [facility] Comment on above: The Troponin [...] Urea nitrogen [Mass/volume] in Serum or Plasma [facility] 03-30 [facility] Urea nitrogen [Mass/Vol] 69 mg/dL [facility] Comment on above: Performed By: #### C RP, BMP, CBC, ESR #### [address] WBC Auto (Bld) [#/Vol]Ordere d By: Ivana Salcedo on 01-01-2025 WBC (Bld) [#/Vol] Leukocytes [#/volume ] in Blood by Automated count 4.1-10.5 [facility] BLOOD UREA NITROGENon 2024 Urea nitrogen [Mass/Vol] 58 mg/dL [facility] 01-26 [facility] Comment on above: Performed By: #### 3 094-0 #### [facility] ([id number]) [address], [address] [place] [address] Urea nitrogen [Mass/Vol] 112 mg/dL [facility] 01-26 [facility] Comment on above: Performed By: #### 3 094-0 #### [facility] ([id number]) [address], [address] [place] [address] 36on 12-28-2024 36 Patients Nucynta was denied by Medicare. Patient calling to see what the next step is. Normal [facility] EDNURSon 12-27-2024 EDNURS Mode of arrival (squ ad #, walk in, police, etc): walk in Chief complaint(s): foot pain, back pain Arrival Note (brief scenario, treatment NO BAKE MOLDER, etc): pt with c/o neuropathy to both feet 10/ burning. No meds taken. C/o 10/10 low back pain sharp. Had mri 2 weeks ago showing pinched nerves. Pleasant/cooperative . Pt with LAVF for HD on wed-wed-wed. Limb alert band placed Normal [facility] EDPROVon 12-27-2024 EDPROV History of Present [...] Chronic sinusitis COVID-19 08/2023 Diabetic foot ulcers ([facility]/HCC) right Diabetic polyneuropathy ([facility]/HCC) Diabetic retinopathy (CMS/HCC) ED (erectile dysfunction) ESRD (end stage renal disease) (CMS/HCC) 11/23/2022 GERD (gastroesophageal reflux disease) Glaucoma History of tobacco use Hyperlipidemia Hypertension Hypogonadism in male Hypothyroidism Insomnia Neuropathy Obesity Osteomyelitis of ankle or foot, left, acute (CMS/HCC) Pancreatitis x2 Past history of chewing tobacco use Peripheral artery disease Proteinuria Sleep apnea Type 2 diabetes mellitus ([facility]/HCC) Vitamin D deficiency Past Surgical History: [...] % Monitor Sitting BP Location FiO2 (%) 12/27/24200 -- Right arm Physical Exam Vitals and [...] warm and dry. Procedures ED Course & [facility] Diagnoses as of 12/27/24 0240 Chronic bilateral [...] him. Attestion Tanvir Smith MD 12/27/24 0357 [facility] Telephoneon 12-26-2024 Telephone [id number] Evans Forte 1970 M Date Provider Department Center 12/26/2024 [id number]-OXNURJULIO DING [facility] Family History Problem Relation Age of [...] Sister Maternal Grandmother Daughter Father's Brother Alive [facility] 36on 12-22-2024 36 Contacted pt and lvm for patient. Patient has not had psych eval done yet and is scheduled for SCS trial on 01/02/25. [facility] Follow-Upon 12-21-2024 Follow-Up [id number] Evans Forte 1970 M Date Provider Department Center 12/21/2024 CHONG WARREN PAIN [facility] Family History Problem Relation Age of [...] Grandmother Daughter Father's Brother Alive Level of Service:92179 [place] OFFICE/OUTPATIENT ESTABLISHED MOD MDM 30 MIN Reason for Visit and Comments: Follow-up [756212] - Neuropathic pain Normal [facility] Office Visiton 12-21-2024 Follow-up visit [id number] Evans Forte 1970 M Date Provider Department Center 12/21/2024 4011-HEAVENLY BUENO [facility] ONC [facility] Family History Problem Relation [...] Grandmother Daughter Father's Brother Alive Level of Service:28365 [place] OFFICE/OUTPATIENT ESTABLISHED MOD MDM 30 MIN Reason for Visit and Comments: Follow-up [133526] - 3 month follow up [facility] Orders Onlyon 12-21-2024 Orders Only [id number] Evans Forte 1970 M Date Provider Department [...] Sister Maternal Grandmother Daughter Father's Brother Alive [facility] 36on 12-15-2024 36 TC contacted patient to follow up on status of work up. Patient states working with podiatry, no wounds at this time. Working with pain management doctor. Still working on dental clearance. Pt states still seeing ID for prior lymph node concerns. Pt has no additional concerns at this time. Melinda Keen, JACOB [facility] 36 Please let patient k now that I ordered valium for him to take prior to his MRI. Thank you [facility] 36 Order for oral Valiu m 10mg x1 to be taken prior to MRI placed today. Patient update. Normal [facility] 36on 12-14-2024 36 LVM to call back to reschedule his NS appt TRS Normal [facility] MR LUMBAR SPINE WO CONTRASTo n [...] which is only partially included in the [id number]. Correlate with physical exam findings. Consider ultrasound for further evaluation. Electronically signed: Chintan Villanueva MD. Not Vldtd Invalid Interpretation Code [facility] Telephoneon 12-12-2024 Telephone [id number] Evans Forte 1970 M Date Provider Department [...] Reason for Visit and Comments: MRI [Other] [facility] 36on 12-05-2024 36 Pt contacted clinic to be seen sooner to discuss pain medication. At the moment there is not any sooner appointment. Patient is on the cancellation list and patient also educated to contact clinic as well to ask for cancellations. [facility] 36 Patient contacted clinic back and song writer let patient know of Dr. Cooley's response. Patient states he has increased his dose a long time ago and it is not working. Patient states he will contact his PCP to receive pain medication until he has the procedure. [facility] [address] Cooley regarding athis and he would like patient to increase dose to 20mg nightly like discussed at visit. Felt Pad Cutter called and left message for patient with new dosing instructions. Felt Pad Cutter also stated that medication changes are not done over the phone and any further changes will need to be discussed at an office visit. [facility] 36on 12-04-2024 36 Patient contacted clinic and wanted to let you know that the medication is not working for his pain. Patient states he has been on it for two weeks. Normal [facility] Telephoneon 12-04-2024 Telephone [id number] Evans Forte 1970 M Date Provider Department Center 12/04/2024 [id number]-CQXWGJULIO DING PAIN [facility] Family History Problem Relation [...] Maternal Grandmother Daughter Father's Brother Alive Normal [facility] US venous duplex LE RTon US venous duplex LE RT [facility] [place] [address] [place] [address] Ultrasound Report Signed Patient: Evans Forte MR#: [id number] : 1970 Acct:[id number] Age/Sex: 54 / M ADM Date: 11/27/24 Loc: ER Room: Type: [facility] ER Attending Dr: Ordering Provider: Venkat [...] Ramirez Jean M.D.11/28/2024 3:29 PM Dictation Location: [place] [address] Tech: Olamide Munoz Transcribed By: CATHLEEN 11/28/24 152 Dictated By: Ramirez Jean MD 11/28/24 1528 Signed By: 11/28/24 152 Normal [facility] Basic Metabolic Panelon 11-05 Anion gap [Moles/Vol] 17.2 mmol/L High 6.0-15.0 [facility] Comment on above: Performed By: #### C RP, BMP, CBC, ESR #### [facility] [address] Calcium [Mass/Vol] 9.1 mg/dL Normal 8.6-10.3 [facility] Comment on above: Performed By: #### C RP, BMP, CBC, ESR #### [facility] [address] Chloride [Moles/Vol] 93 mmol/L Low 98-107 [facility] Comment on above: Performed By: #### C RP, BMP, CBC, ESR #### [facility] [address] CO2 [Moles/Vol] 24.7 mmol/L Normal 21.0-31.0 [facility] Comment on above: Performed By: #### C RP, BMP, CBC, ESR #### [facility] [address] Creatinine [Mass/Vol] 6.56 mg/dL High 0.70-1.30 [facility] Comment on above: Performed By: #### C RP, BMP, CBC, ESR #### [facility] [address] [place] [address] [place] Creatinine Clr Calc Pharmacy 19.67 Normal [facility] Comment on above: Performed By: #### C RP, BMP, CBC, ESR #### [facility] [address] Estimated GFR 9.418 mL/Min Normal [facility] Comment on above: Performed By: #### C RP, BMP, CBC, ESR #### [facility] [address] Glucose [Mass/Vol] 199 mg/dL High 70-100 [facility] Comment on above: Result Comment: [place] Glucose Reference Range is dependent on time and content of last meal. Glucose of more than 200 mg/dL in a nonstressed, ambulatory subject supports the diagnosis of Diabetes Mellitus. ADA recommended reference range Performed By: #### C RP, BMP, CBC, ESR #### [facility] [facility] [address] Potassium [Moles/Vol] 3.9 mmol/L Normal 3.5-5.1 [facility] Comment on above: Performed By: #### C RP, BMP, CBC, ESR #### [facility] [address] Sodium [Moles/Vol] 131 mmol/L Low 136-145 [facility] Comment on above: Performed By: #### C RP, BMP, CBC, ESR #### [facility] [address] Urea nitrogen [Mass/Vol] 47 mg/dL High 7-25 [facility] Comment on above: Performed By: #### C RP, BMP, CBC, ESR #### [address] Basophils Auto (Bld) [#/Vol] Ordered By: Venkat Burgos on 11-27-2024 Basophils (Bld) [#/Vol] Automated basophil count 0.0-0.2 [facility] Basophils/100 WBC Auto (Bld) Ordered By: Venkat Burgos on 11-27-2024 Basophils/100 WBC (Bld) Automated basophil % . [facility] C reactive protein [Mass/vol ume] in Serum or PlasmaOrdered By: Venkat Burgos on 11-27-2024 CRP [Mass/Vol] C reactive protein [Mass/volume] in Serum or Plasma High 0.0-0.5 [facility] C-Reactive Proteinon 025 C-Reactive Protein 2.8 mg/dL High 0.0-0.5 [facility] Comment on above: Result Comment: PERF ORMED BY: [place] [address] PATHOLOGIST CAMPAIGN FUNDRAISER KIM ELLIOTT M.D. Performed By: #### C RP, BMP, CBC, ESR #### [address] Calcium [Mass/volume] in Ser um or PlasmaOrdered By: Venkat Burgos on 11-27-2024 Calcium [Mass/Vol] Calcium [Mass/volume ] in Serum or Plasma 8.6-10.3 [facility] Carbon dioxide, total [Moles /volume] in Serum or PlasmaOrdered By: Venkat Burgos on 11-27-2024 CO2 [Moles/Vol] Carbon dioxide, tota l [Moles/volume] in Serum or Plasma 21.0-31.0 [facility] Chloride [Moles/volume] in S james or PlasmaOrdered By: Venkat Burgos on 11-27-2024 Chloride [Moles/Vol] Chloride [Moles/vol ume] in Serum or Plasma Low 98-107 [facility] Complete Blood Count Auto Di ffon 11-27-2024 Basophils (Bld) [#/Vol] 0.1 10*3/uL Normal 0.0-0.2 [facility] Comment on above: Performed By: #### C RP, BMP, CBC, ESR #### [facility] [address] Basophils/100 WBC (Bld) 1.0 % Normal . [facility] Comment on above: Performed By: #### C RP, BMP, CBC, ESR #### [facility] [address] [place] [address] [place] Eosinophils (Bld) [#/Vol] 0.6 10*3/uL High 0.0-0.45 [facility] Comment on above: Performed By: #### C RP, BMP, CBC, ESR #### [facility] [address] [place] [address] [place] Eosinophils/100 WBC (Bld) 6.0 % Normal . [facility] Comment on above: Performed By: #### C RP, BMP, CBC, ESR #### [facility] [address] [place] [address] [place] Erythrocyte distribution width (RBC) [Ratio] 15.0 % High 12.0-14.8 [facility] Comment on above: Performed By: #### C RP, BMP, CBC, ESR #### [facility] [address] Hematocrit (Bld) [Volume fraction] 35.6 % Low 38.8-50.0 [facility] Comment on above: Performed By: #### C RP, BMP, CBC, ESR #### [address] Hemoglobin (Bld) [Mass/Vol] 12.1 g/dL Low 13.0-17.0 [facility] Comment on above: Performed By: #### C RP, BMP, CBC, ESR #### [address] Lymphocytes (Bld) [#/Vol] 1.5 10*3/uL Normal 1.00-4.8 [facility] Comment on above: Performed By: #### C RP, BMP, CBC, ESR #### [address] Lymphocytes/100 WBC (Bld) 14.1 % Normal . [facility] Comment on above: Performed By: #### C RP, BMP, CBC, ESR #### [address] MCH (RBC) [Entitic mass] 30.6 pg Normal 27.5-35.2 [facility] Comment on above: Performed By: #### C RP, BMP, CBC, ESR #### [address] MCV (RBC) [Entitic vol] 90.1 fL Normal 83.5-101 [facility] Comment on above: Performed By: #### C RP, BMP, CBC, ESR #### [address] Mean Corpuscular HGB Conc 33.9 g/dL Normal 32.5-35.6 [facility] Comment on above: Performed By: #### C RP, BMP, CBC, ESR #### [address] Monocytes (Bld) [#/Vol] 1.0 10*3/uL High 0.0-0.8 [facility] Comment on above: Performed By: #### C RP, BMP, CBC, ESR #### [address] [place] [address] [place] Monocytes/100 WBC (Bld) 18.22 % Normal 0.00-20.00 [facility] Comment on above: Performed By: #### C RP, BMP, CBC, ESR #### [facility] [address] [place] [address] [place] Monocytes/100 WBC (Bld) 9.3 % Normal . [facility] Comment on above: Performed By: #### C RP, BMP, CBC, ESR #### [address] Neutrophils (Bld) [#/Vol] 7.4 10*3/uL Normal 1.8-7.7 [facility] Comment on above: Performed By: #### C RP, BMP, CBC, ESR #### [address] Neutrophils/100 WBC (Bld) 69.6 % Normal . [facility] Comment on above: Performed By: #### C RP, BMP, CBC, ESR #### [address] NRBC% 0.0 /100{WBC} Normal 0-0.5 [facility] Comment on above: Performed By: #### C RP, BMP, CBC, ESR #### [address] Platelet mean volume (Bld) [Entitic vol] 7.0 fL Normal 6.6-10.1 [facility] Comment on above: Performed By: #### C RP, BMP, CBC, ESR #### [place] [address] [place] Platelets (Bld) [#/Vol] 400 10*3/uL Normal 150-450 [facility] Comment on above: Performed By: #### C RP, BMP, CBC, ESR #### [place] [address] [place] RBC (Bld) [#/Vol] 3.95 10*6/uL Normal 3.90-5.[address] [facility] Comment on above: Performed By: #### C RP, BMP, CBC, ESR #### [address] WBC (Bld) [#/Vol] 10.6 10*3/uL High 4.1-10.[address] [facility] Comment on above: Performed By: #### C RP, BMP, CBC, ESR #### [facility] [address] [place] [address] Creatinine [Mass/volume] in Serum or PlasmaOrdered By: Venkat Burgos on 11-27-2024 Creatinine [Mass/Vol] Creatinine [Mass/volume] in Serum or Plasma High 0.70-1.30 [facility] Eosinophils Auto (Bld) [#/Vo l]Ordered By: Venkat Burgos on 11-27-2024 Eosinophils (Bld) [#/Vol] Automated eosinophil count High 0.0-0.45 [facility] Eosinophils/100 WBC Auto (Bl d)Ordered By: Venkat Burgos on 11-27-2024 Eosinophils/100 WBC (Bld) Automated eosinophil % . [facility] Erythrocyte Sedimentation Ra darrel 11-27-2024 ESR (Bld) [Velocity] 122 mm/h High 0-19 [facility] Comment on above: Result Comment: PERF ORMED BY: [place] [address] PATHOLOGIST CAMPAIGN FUNDRAISER KIM ELLIOTT M.D. Performed By: #### C RP, BMP, CBC, ESR #### [address] Erythrocyte distribution wid th Auto (RBC) [Ratio]Ordered By: Venkat Burgos on 11-27-2024 Erythrocyte distribution width (RBC) [Ratio] Erythrocyte distribution width [Ratio] by Automated count High 12.0-14.8 [facility] Erythrocyte sedimentation ra te by Photometric methodOrdered By: Venkat Burgos on 11-27-2024 ESR Photometric method (Bld) [Velocity] Erythrocyte sedimentation rate by Photometric method High 0-19 [facility] Glucose [Mass/volume] in Ser um or PlasmaOrdered By: Venkat Burgos on 11-27-2024 Glucose [Mass/Vol] Glucose [Mass/volume ] in Serum or Plasma High 70-100 [facility] Comment on above: ADA recommended [...] of Blood by Automated count Low 38.8-50.0 [facility] Hemoglobin [Mass/volume] in BloodOrdered By: Venkat Burgos on 11-27-2024 Hemoglobin (Bld) [Mass/Vol] Hemoglobin [Mass/volume] in Blood Low 13.0-17.0 [facility] Leukocytes [#/volume] correc scott for nucleated erythrocytes in Blood by Automated counOrdered By: Venkat Burgos on 11-27-2024 WBC corrected for nucl RBC Auto (Bld) [#/Vol] Leukocytes [#/volume] corrected for nucleated erythrocytes in Blood by Automated coun High 4.1-10.5 [facility] Lymphocytes Auto (Bld) [#/Vo l]Ordered By: Venkat Burgos on 11-27-2024 Lymphocytes (Bld) [#/Vol] Lymphocytes [#/volume] in Blood by Automated count 1.00-4.8 [facility] Lymphocytes/100 WBC Auto (Bl d)Ordered By: Venkat Burgos on 11-27-2024 Lymphocytes/100 WBC (Bld) Lymphocytes/100 leukocytes in Blood by Automated count . [facility] MCH Auto (RBC) [Entitic mass ]Ordered By: Venkat Burgos on 11-27-2024 MCH (RBC) [Entitic mass] MCH [Entitic mass] by Automated count 27.5-35.2 [facility] MCHC Auto (RBC) [Mass/Vol]Or dered By: Venkat Burgos on 11-27-2024 MCHC (RBC) [Mass/Vol] MCHC [Mass/volume] by Automated count 32.5-35.6 [facility] MCV Auto (RBC) [Entitic vol] Ordered By: Venkat Burgos on 11-27-2024 MCV (RBC) [Entitic vol] MCV [Entitic volume] by Automated count 83.5-101 [facility] Monocyte distribution width [Entitic volume] in Blood by AutomatedOrdered By: Venkat Burgos on 11-27-2024 Monocyte distribution width Auto (Bld) [Entitic vol] Monocyte distribution width [Entitic volume] in Blood by Automated 0.00-20.00 [facility] Monocytes Auto (Bld) [#/Vol] Ordered By: Venkat Burgos on 11-27-2024 Monocytes (Bld) [#/Vol] Automated blood monocyte count High 0.0-0.8 [facility] Monocytes/100 WBC Auto (Bld) Ordered By: Venkat Burgos on 11-27-2024 Monocytes/100 WBC (Bld) Automated monocyte % . [facility] Neutrophils Auto (Bld) [#/Vo l]Ordered By: Venkat Burgos on 11-27-2024 Neutrophils (Bld) [#/Vol] Neutrophils [#/volume] in Blood by Automated count 1.8-7.7 [facility] Neutrophils/100 WBC Auto (Bl d)Ordered By: Venkat Burgos on 11-27-2024 Neutrophils/100 WBC (Bld) Automated neutrophil % . [facility] No Panel InformationOrdered By: Venkat Burgos on 11-27-2024 Estimated GFR (CKD-EPI) 9.418 mL/Min [facility] Creatinine Clearance (Chem 19.67 [facility] Nucleated erythrocytes [Pres ence] in Blood by Automated countOrdered By: Venkat Burgos on 11-27-2024 Nucleated RBC Auto Ql (Bld) Nucleated erythrocytes [Presence] in Blood by Automated count 0-0.5 [facility] Platelet mean volume Auto (B ld) [Entitic vol]Ordered By: Venkat Burgos on 11-27-2024 Platelet mean volume (Bld) [Entitic vol] Platelet mean volume [Entitic volume] in Blood by Automated count 6.6-10.1 [facility] Platelets Auto (Bld) [#/Vol] Ordered By: Venkat Burgos on 11-27-2024 Platelets (Bld) [#/Vol] Platelets [#/volume] in Blood by Automated count 150-450 [facility] Potassium [Moles/volume] in Serum or PlasmaOrdered By: Venkat Burgos on 11-27-2024 Potassium [Moles/Vol] Potassium [Moles/volume] in Serum or Plasma 3.5-5.1 [facility] RBC Auto (Bld) [#/Vol]Ordere d By: Venkat Burgos on 11-27-2024 RBC (Bld) [#/Vol] Erythrocytes [#/volu me] in Blood by Automated count 3.90-5.60 [facility] Serum or plasma anion gap de terminationOrdered By: Venkat Burgos on 11-27-2024 Anion gap [Moles/Vol] Serum or plasma an ion gap determination High 6.0-15.0 [facility] Sodium [Moles/volume] in Ser um or PlasmaOrdered By: Venkat Burgos on 11-27-2024 Sodium [Moles/Vol] Sodium [Moles/volume ] in Serum or Plasma Low 136-145 [facility] Urea nitrogen [Mass/volume] in Serum or PlasmaOrdered By: Venkat Burgos on 11-27-2024 Urea nitrogen [Mass/Vol] Urea nitrogen [Mass/volume] in Serum or Plasma High 7-25 [facility] WBC Auto (Bld) [#/Vol]Ordere d By: Venkat Burgos on 11-27-2024 WBC (Bld) [#/Vol] Leukocytes [#/volume ] in Blood by Automated count High 4.1-10.5 [facility] Office Visiton 11-23-2024 Follow-up visit [id number] Evans Forte 1970 M Date Provider Department Center 11/23/2024 CHONG WARREN PAIN [facility] Family History [...] Grandmother Daughter Father's Brother Alive Level of Service:31737 [place] OFFICE/OUTPATIENT NEW MODERATE MDM 45 MINUTES (GC) Reason for Visit and Comments: New Patient [632] - Neuropathy [facility] Telemedicineon 11-07-2024 Telemedicine [id number] Evans Forte 1970 M Date Provider Department Center 11/07/2024 FAUSTINO GUZMÁN [facility] INF [facility] Family History Problem [...] Grandmother Daughter Father's Brother Alive Level of Service:24442 [place] OFFICE/OUTPATIENT ESTABLISHED SF MDM 10 MIN (95) [facility] Follow-Upon 10-31-2024 Follow-Up [id number] Evans Forte 1970 M Date Provider Department Center 10/31/2024 Uriel-JOY WATERS C WOUND [facility] Family History Problem [...] Grandmother Daughter Father's Brother Alive Level of Service:45175 [place] OFFICE/OUTPATIENT ESTABLISHED MOD MDM 30 MIN [facility] Alanine aminotransferase [En zymatic activity/volume] in Serum or PlasmaOrdered By: Will Cerna on 10-29-2024 ALT [Catalytic activity/Vol] Alanine aminotransferase [Enzymatic activity/volume] in Serum or Plasma [facility] Albumin [Mass/volume] in Ser um or Plasma by Bromocresol green (BCG) dye binding methoOrdered By: Will Cerna on 10-29-2024 Albumin BCG dye [Mass/Vol] Albumin [Mass/volume] in Serum or Plasma by Bromocresol green (BCG) dye binding metho 3.5-5.7 [facility] Alkaline phosphatase [Enzyma tic activity/volume] in Serum or PlasmaOrdered By: Will Cerna on 10-29-2024 ALP [Catalytic activity/Vol] Alkaline phosphatase [Enzymatic activity/volume] in Serum or Plasma 34-104 [facility] Aspartate aminotransferase [ Enzymatic activity/volume] in Serum or PlasmaOrdered By: Will Cerna on 10-29-2024 AST [Catalytic activity/Vol] Aspartate aminotransferase [Enzymatic activity/volume] in Serum or Plasma Low 13-39 [facility] Basophils Auto (Bld) [#/Vol] Ordered By: Will Cerna on 10-29-2024 Basophils (Bld) [#/Vol] Automated basophil count 0.0-0.2 [facility] Basophils/100 WBC Auto (Bld) Ordered By: Will Cerna on 10-29-2024 Basophils/100 WBC (Bld) Automated basophil % . [facility] Bilirubin.total [Mass/volume ] in Serum or PlasmaOrdered By: Will Cerna on 10-29-2024 Bilirubin [Mass/Vol] Bilirubin.total [Mass/volume] in Serum or Plasma 0.3-1.0 [facility] Blood Cultureon 10-29-2024 Bacteria identified Cx Nom (Bld) NO GROWTH 5 DAYS PERFORMED BY: [place] [address] PATHOLOGIST CAMPAIGN FUNDRAISER KIM ELLIOTT M.D. Normal [facility] Comment on above: Performed By: #### C RP, BMP, CBC, ESR #### [facility] [address] [place] [address] [place] Bacteria identified Cx Nom (Bld) NO GROWTH 5 DAYS PERFORMED BY: [place] [address] PATHOLOGIST CAMPAIGN FUNDRAISER KIM ELLIOTT M.D. Normal [facility] Comment on above: Performed By: #### C RP, BMP, CBC, ESR #### [facility] [address] [place], [place] [id number] [place] C reactive protein [Mass/vol ume] in Serum or PlasmaOrdered By: Will Cerna on 10-29-2024 CRP [Mass/Vol] C reactive protein [Mass/volume] in Serum or Plasma High 0.0-0.5 [facility] C-Reactive Proteinon 025 C-Reactive Protein 1.5 mg/dL High 0.0-0.5 [facility] Comment on above: Result Comment: PERF ORMED BY: [facility] [address] [place] [address] PATHOLOGIST CAMPAIGN FUNDRAISER KIM ELLIOTT M.D. Performed By: #### C RP, CMP, CBC, ESR, LACTIC #### [facility] [address] [place] [address] [place] Calcium [Mass/volume] in Ser um or PlasmaOrdered By: Will Cerna on 10-29-2024 Calcium [Mass/Vol] Calcium [Mass/volume ] in Serum or Plasma 8.6-10.3 [facility] Carbon dioxide, total [Moles /volume] in Serum or PlasmaOrdered By: Will Cerna on 10-29-2024 CO2 [Moles/Vol] Carbon dioxide, tota l [Moles/volume] in Serum or Plasma 21.0-31.0 [facility] Chloride [Moles/volume] in S james or PlasmaOrdered By: Will Cerna on 10-29-2024 Chloride [Moles/Vol] Chloride [Moles/vol ume] in Serum or Plasma 98-107 [facility] Complete Blood Count Auto Di ffon 10-29-2024 Basophils (Bld) [#/Vol] 0.1 10*3/uL Normal 0.0-0.2 [facility] Comment on above: Performed By: #### C RP, CMP, CBC, ESR, LACTIC #### [facility] [address] [place] [address] [place] Basophils/100 WBC (Bld) 1.1 % Normal . [facility] Comment on above: Performed By: #### C RP, CMP, CBC, ESR, LACTIC #### [facility] [address] [place] [id number] [place] Eosinophils (Bld) [#/Vol] 0.3 10*3/uL Normal 0.0-0.45 [facility] Comment on above: Performed By: #### C RP, CMP, CBC, ESR, LACTIC #### [address] Eosinophils/100 WBC (Bld) 3.4 % Normal . [facility] Comment on above: Performed By: #### C RP, CMP, CBC, ESR, LACTIC #### [address] Erythrocyte distribution width (RBC) [Ratio] 14.3 % Normal 12.0-14.8 [facility] Comment on above: Performed By: #### C RP, CMP, CBC, ESR, LACTIC #### [address] Hematocrit (Bld) [Volume fraction] 35.5 % Low 38.8-50.0 [facility] Comment on above: Performed By: #### C RP, CMP, CBC, ESR, LACTIC #### [address] Hemoglobin (Bld) [Mass/Vol] 12.1 g/dL Low 13.0-17.0 [facility] Comment on above: Performed By: #### C RP, CMP, CBC, ESR, LACTIC #### [address] Lymphocytes (Bld) [#/Vol] 1.4 10*3/uL Normal 1.00-4.8 [facility] Comment on above: Performed By: #### C RP, CMP, CBC, ESR, LACTIC #### [address] Lymphocytes/100 WBC (Bld) 14.2 % Normal . [facility] Comment on above: Performed By: #### C RP, CMP, CBC, ESR, LACTIC #### [address] MCH (RBC) [Entitic mass] 31.2 pg Normal 27.5-35.2 [facility] Comment on above: Performed By: #### C RP, CMP, CBC, ESR, LACTIC #### [address] MCV (RBC) [Entitic vol] 91.2 fL Normal 83.5-101 [facility] Comment on above: Performed By: #### C RP, CMP, CBC, ESR, LACTIC #### [address] Mean Corpuscular HGB Conc 34.2 g/dL Normal 32.5-35.6 [facility] Comment on above: Performed By: #### C RP, CMP, CBC, ESR, LACTIC #### [address] Monocytes (Bld) [#/Vol] 0.7 10*3/uL Normal 0.0-0.8 [facility] Comment on above: Performed By: #### C RP, CMP, CBC, ESR, LACTIC #### [address] Monocytes/100 WBC (Bld) 13.40 % Normal 0.00-20.00 [facility] Comment on above: Performed By: #### C RP, CMP, CBC, ESR, LACTIC #### [address] Monocytes/100 WBC (Bld) 6.8 % Normal . [facility] Comment on above: Performed By: #### C RP, CMP, CBC, ESR, LACTIC #### [address] Neutrophils (Bld) [#/Vol] 7.5 10*3/uL Normal 1.8-7.7 [facility] Comment on above: Performed By: #### C RP, CMP, CBC, ESR, LACTIC #### [address] Neutrophils/100 WBC (Bld) 74.5 % Normal . [facility] Comment on above: Performed By: #### C RP, CMP, CBC, ESR, LACTIC #### [address] NRBC% 0.0 /100{WBC} Normal 0-0.5 [facility] Comment on above: Performed By: #### C RP, CMP, CBC, ESR, LACTIC #### [address] Platelet mean volume (Bld) [Entitic vol] 6.7 fL Normal 6.6-10.1 [facility] Comment on above: Performed By: #### C RP, CMP, CBC, ESR, LACTIC #### [address] Platelets (Bld) [#/Vol] 368 10*3/uL Normal 150-450 [facility] Comment on above: Performed By: #### C RP, CMP, CBC, ESR, LACTIC #### [address] RBC (Bld) [#/Vol] 3.89 10*6/uL Low 3.90-5.[address] [facility] Comment on above: Performed By: #### C RP, CMP, CBC, ESR, LACTIC #### [address] WBC (Bld) [#/Vol] 10.1 10*3/uL Normal 4.1-10.[address] [facility] Comment on above: Performed By: #### C RP, CMP, CBC, ESR, LACTIC #### [address] Comprehensive Metabolic Pane nick 10-29-2024 Albumin [Mass/Vol] 4.3 g/dL Normal 3.5-5.7 [facility] Comment on above: Performed By: #### C RP, CMP, CBC, ESR, LACTIC #### [address] Albumin/Globulin [Mass ratio] 1.1 {ratio} Normal [facility] Comment on above: Performed By: #### C RP, CMP, CBC, ESR, LACTIC #### [address] ALP [Catalytic activity/Vol] 90 U/L Normal 34-104 [facility] Comment on above: Performed By: #### C RP, CMP, CBC, ESR, LACTIC #### [address] ALT [Catalytic activity/Vol] 11 U/L Normal 7-52 [facility] Comment on above: Performed By: #### C RP, CMP, CBC, ESR, LACTIC #### [address] Anion gap [Moles/Vol] 16.6 mmol/L High 6.0-15.0 [facility] Comment on above: Performed By: #### C RP, CMP, CBC, ESR, LACTIC #### [address] AST [Catalytic activity/Vol] 7 U/L Low 13-39 [facility] Comment on above: Performed By: #### C RP, CMP, CBC, ESR, LACTIC #### [address] Bilirubin [Mass/Vol] 0.4 mg/dL Normal 0.3-1.0 [facility] Comment on above: Performed By: #### C RP, CMP, CBC, ESR, LACTIC #### [address] Calcium [Mass/Vol] 9.4 mg/dL Normal 8.6-10.3 [facility] Comment on above: Performed By: #### C RP, CMP, CBC, ESR, LACTIC #### [address] Chloride [Moles/Vol] 100 mmol/L Normal 98-107 [facility] Comment on above: Performed By: #### C RP, CMP, CBC, ESR, LACTIC #### [address] CO2 [Moles/Vol] 25.8 mmol/L Normal 21.0-31.0 [facility] Comment on above: Performed By: #### C RP, CMP, CBC, ESR, LACTIC #### [address] Creatinine [Mass/Vol] 9.58 mg/dL High 0.70-1.30 [facility] Comment on above: Performed By: #### C RP, CMP, CBC, ESR, LACTIC #### [address] Creatinine Clr Calc Pharmacy 13.36 Normal [facility] Comment on above: Performed By: #### C RP, CMP, CBC, ESR, LACTIC #### [address] Estimated GFR 5.978 mL/Min Normal [facility] Comment on above: Performed By: #### C RP, CMP, CBC, ESR, LACTIC #### [address] Globulin (S) [Mass/Vol] 3.9 g/dL Normal [facility] Comment on above: Performed By: #### C RP, CMP, CBC, ESR, LACTIC #### [address] Glucose [Mass/Vol] 259 mg/dL High 70-100 [facility] Comment on above: Result Comment: [facility] Glucose Reference Range is dependent on time and content of last meal. Glucose of more than 200 mg/dL in a nonstressed, ambulatory subject supports the diagnosis of Diabetes Mellitus. ADA recommended reference range Performed By: #### C RP, CMP, CBC, ESR, LACTIC #### [address] Potassium [Moles/Vol] 4.4 mmol/L Normal 3.5-5.1 [facility] [facility] Comment on above: Performed By: #### C RP, CMP, CBC, ESR, LACTIC #### [address] Protein [Mass/Vol] 8.2 g/dL Normal 6.4-8.9 [facility] Comment on above: Performed By: #### C RP, CMP, CBC, ESR, LACTIC #### [address] Sodium [Moles/Vol] 138 mmol/L Normal 136-145 [facility] Comment on above: Performed By: #### C RP, CMP, CBC, ESR, LACTIC #### [facility] [address] [place] [address] [place] Urea nitrogen [Mass/Vol] 78 mg/dL High 7-25 [facility] Comment on above: Performed By: #### C RP, CMP, CBC, ESR, LACTIC #### [facility] [address] Creatinine [Mass/volume] in Serum or PlasmaOrdered By: Will Cerna on 10-29-2024 Creatinine [Mass/Vol] Creatinine [Mass/volume] in Serum or Plasma High 0.70-1.30 [facility] ECG 12 lead ECGon 10-29-2024 ECG 12 lead ECG [facility] Main [place] [address] [place] [address] Electrocardiograph Report Signed Patient: Evans Forte MR#: [id number] : 1970 Acct:[id number] Age/Sex: 54 / M ADM Date: 10/29/24 Loc: Room: [address] [place] [address] Type: ADM IN Attending Dr: Maxime Magana [...] was found Confirmed by UDAY SALGADO DO ([id number]) on 10/30/2024 1:34:21 AM Referred By: Electronically Signed By: UDAY SALGADO DO Transcribed By: MUS Signed By Uday Salgado DO 10/30 0134 Normal [facility] Eosinophils Auto (Bld) [#/Vo l]Ordered By: Will Cerna on 10-29-2024 Eosinophils (Bld) [#/Vol] Automated eosinophil count 0.0-0.45 [facility] Eosinophils/100 WBC Auto (Bl d)Ordered By: Will Cerna on 10-29-2024 Eosinophils/100 WBC (Bld) Automated eosinophil % . [facility] Erythrocyte Sedimentation Ra darrel 10-29-2024 ESR (Bld) [Velocity] 74 mm/h High 0-19 [facility] Comment on above: Result Comment: PERF ORMED BY: [facility] [address] [place] [address] PATHOLOGIST CAMPAIGN FUNDRAISER KIM ELLIOTT M.D. Performed By: #### C RP, CMP, CBC, ESR, LACTIC #### [address] Erythrocyte distribution wid th Auto (RBC) [Ratio]Ordered By: Will Cerna on 10-29-2024 Erythrocyte distribution width (RBC) [Ratio] Erythrocyte distribution width [Ratio] by Automated count 12.0-14.8 [facility] Erythrocyte sedimentation ra te by Photometric methodOrdered By: Will Cerna on 10-29-2024 ESR Photometric method (Bld) [Velocity] Erythrocyte sedimentation rate by Photometric method High 0-19 [facility] Globulin Calc (S) [Mass/Vol] Ordered By: Will Cerna on 10-29-2024 Globulin (S) [Mass/Vol] Serum globulin measurement by calculation (mass/volume) [facility] Glucose Glucometer (BldC) [M ass/Vol]Ordered By: Maxime Magana on 10-29-2024 Glucose [Mass/Vol] Capillary blood gluc ose measurement by glucometer (mass/volume) [facility] Comment on above: Random Glucose Refer ence Range is dependent on time and content of last meal. Glucose of more than 200 mg/dL in a nonstressed, ambulatory subject supports the diagnosis of Diabetes Mellitus. Glucose Poct Glucometerson 0 10-29-2024 Glucose [Mass/Vol] 244 mg/dL Normal [facility] Comment on above: Result Comment: [place] om Glucose Reference Range is dependent on time and content of last meal. Glucose of more than 200 mg/dL in a nonstressed, ambulatory subject supports the diagnosis of Diabetes Mellitus. PERFORMED BY: [facility] [address] [facility] [place] [address] PATHOLOGIST CAMPAIGN FUNDRAISER KIM ELLIOTT M.D. Performed By: #### C RP, BMP, CBC, ESR #### [facility] [address] Glucose [Mass/volume] in Ser um or PlasmaOrdered By: Will Cerna on 10-29-2024 Glucose [Mass/Vol] Glucose [Mass/volume ] in Serum or Plasma High 70-100 [facility] Comment on above: ADA recommended [...] of Blood by Automated count Low 38.8-50.0 [facility] Hemoglobin [Mass/volume] in BloodOrdered By: Will Cerna on 10-29-2024 Hemoglobin (Bld) [Mass/Vol] Hemoglobin [Mass/volume] in Blood Low 13.0-17.0 [facility] Laboratory - Microbiology an d Antimicrobial susceptibilityOrdered By: Will Cerna on 10-29-2024 Bacteria identified Cx Nom (Bld) NO GROWTH 5 DAYS [facility] Bacteria identified Cx Nom (Bld) NO GROWTH 5 DAYS [facility] Lactate [Moles/volume] in Se rum or PlasmaOrdered By: Will Cerna on 10-29-2024 Lactate [Moles/Vol] Lactate [Moles/volum e] in Serum or Plasma 0.5-1.9 [facility] Comment on above: Lactic Acid referenc e range has been updated to 0.5 1.9 mmol/L and the critical range of 2.0 or greater. Lactic Acidon 10-29-2024 Lactate [Moles/Vol] 1.0 mmol/L Normal 0.5-1.[address] [facility] Comment on above: Result Comment: Lact ic Acid reference range has been updated to 0.5 ? 1.9 mmol/L and the critical range of 2.0 or greater. PERFORMED BY: [facility] [address] [place] [address] PATHOLOGIST CAMPAIGN FUNDRAISER KIM ELLIOTT M.D. Performed By: #### C RP, CMP, CBC, ESR, LACTIC #### [facility] [address] Leukocytes [#/volume] correc scott for nucleated erythrocytes in Blood by Automated counOrdered By: Will Cerna on 10-29-2024 WBC corrected for nucl RBC Auto (Bld) [#/Vol] Leukocytes [#/volume] corrected for nucleated erythrocytes in Blood by Automated coun 4.1-10.5 [facility] Lymphocytes Auto (Bld) [#/Vo l]Ordered By: Will Cerna on 10-29-2024 Lymphocytes (Bld) [#/Vol] Lymphocytes [#/volume] in Blood by Automated count 1.00-4.8 [facility] Lymphocytes/100 WBC Auto (Bl d)Ordered By: Will Cerna on 10-29-2024 Lymphocytes/100 WBC (Bld) Lymphocytes/100 leukocytes in Blood by Automated count . [facility] MCH Auto (RBC) [Entitic mass ]Ordered By: Will Cerna on 10-29-2024 MCH (RBC) [Entitic mass] MCH [Entitic mass] by Automated count 27.5-35.2 [facility] MCHC Auto (RBC) [Mass/Vol]Or dered By: Will Cerna on 10-29-2024 MCHC (RBC) [Mass/Vol] MCHC [Mass/volume] by Automated count 32.5-35.6 [facility] MCV Auto (RBC) [Entitic vol] Ordered By: Will Cerna on 10-29-2024 MCV (RBC) [Entitic vol] MCV [Entitic volume] by Automated count 83.5-101 [facility] Monocyte distribution width [Entitic volume] in Blood by AutomatedOrdered By: Will Cerna on 10-29-2024 Monocyte distribution width Auto (Bld) [Entitic vol] Monocyte distribution width [Entitic volume] in Blood by Automated 0.00-20.00 [facility] Monocytes Auto (Bld) [#/Vol] Ordered By: Will Cerna on 10-29-2024 Monocytes (Bld) [#/Vol] Automated blood monocyte count 0.0-0.8 [facility] Monocytes/100 WBC Auto (Bld) Ordered By: Will Cerna on 10-29-2024 Monocytes/100 WBC (Bld) Automated monocyte % . [facility] Neutrophils Auto (Bld) [#/Vo l]Ordered By: Will Cerna on 10-29-2024 Neutrophils (Bld) [#/Vol] Neutrophils [#/volume] in Blood by Automated count 1.8-7.7 [facility] Neutrophils/100 WBC Auto (Bl d)Ordered By: Will Cerna on 10-29-2024 Neutrophils/100 WBC (Bld) Automated neutrophil % . [facility] No Panel InformationOrdered By: Will Cerna on 10-29-2024 Estimated GFR (CKD-EPI) 5.978 mL/Min [facility] Pharmacy Creatinine Clearance (Chem 13.36 [facility] Nucleated erythrocytes [Pres ence] in Blood by Automated countOrdered By: Will Cerna on 10-29-2024 Nucleated RBC Auto Ql (Bld) Nucleated erythrocytes [Presence] in Blood by Automated count 0-0.5 [facility] Platelet mean volume Auto (B ld) [Entitic vol]Ordered By: Will Cerna on 10-29-2024 Platelet mean volume (Bld) [Entitic vol] Platelet mean volume [Entitic volume] in Blood by Automated count 6.6-10.1 [facility] Platelets Auto (Bld) [#/Vol] Ordered By: Will Cerna on 10-29-2024 Platelets (Bld) [#/Vol] Platelets [#/volume] in Blood by Automated count 150-450 [facility] Potassium [Moles/volume] in Serum or PlasmaOrdered By: Will Cerna on 10-29-2024 Potassium [Moles/Vol] Potassium [Moles/volume] in Serum or Plasma 3.5-5.1 [facility] Protein [Mass/volume] in Ser um or PlasmaOrdered By: Will Cerna on 10-29-2024 Protein [Mass/Vol] Protein [Mass/volume ] in Serum or Plasma 6.4-8.9 [facility] RBC Auto (Bld) [#/Vol]Ordere d By: Will Cerna on 10-29-2024 RBC (Bld) [#/Vol] Erythrocytes [#/volu me] in Blood by Automated count Low 3.90-5.60 [facility] Serum or plasma albumin/glob ulin mass ratioOrdered By: Will Cerna on 10-29-2024 Albumin/Globulin [Mass ratio] Serum or plasma albumin/globulin mass ratio [facility] Serum or plasma anion gap de terminationOrdered By: Will Cerna on 10-29-2024 Anion gap [Moles/Vol] Serum or plasma an ion gap determination High 6.0-15.0 [facility] Sodium [Moles/volume] in Ser um or PlasmaOrdered By: Will Cerna on 10-29-2024 Sodium [Moles/Vol] Sodium [Moles/volume ] in Serum or Plasma 136-145 [facility] Urea nitrogen [Mass/volume] in Serum or PlasmaOrdered By: Will Cerna on 10-29-2024 Urea nitrogen [Mass/Vol] Urea nitrogen [Mass/volume] in Serum or Plasma High 7-25 [facility] WBC Auto (Bld) [#/Vol]Ordere d By: Will Cerna on 10-29-2024 WBC (Bld) [#/Vol] Leukocytes [#/volume ] in Blood by Automated count 4.1-10.5 [facility] X-ray reportOrdered By: Rony Saeed on 10-29-2024 Study report [facility] [place] [address] XRay Report Signed Patient: Evans Forte MR#: [id number] : 1970 Acct:[id number] Age/Sex: 54 / M ADM Date: 5 Loc: ER Room: Type: [facility] ER Attending Dr: Copies to: Will [...] Derrick Saeed M.D.10/29/2024 6:14 PM Dictation Location: [employer] Transcribed By: CATHLEEN 10/29/241813 Dictated By: Derrick Saeed MD 10/29/241810 Signed By: 10/29/241813 [facility] Work Phone: XR foot RT min 3V*on 025 XR foot RT min 3V* [facility] Main [place] [address] [place] [address] XRay Report Signed Patient: Evans Forte MR#: [id number] : 1970 Acct:[id number] Age/Sex: 54 / M ADM Date: 10/29/24 Loc: ER Room: Type: [facility] ER Attending Dr: Copies to: Will [...] Derrick Saeed M.D.10/29/2024 6:14 PM Dictation Location: [id number] Transcribed By: CATHLEEN 10/29/241813 Dictated By: Derrick Saeed MD 10/29/241810 Signed By: 10/29/241813 Normal [facility] 29on 10-17-2024 29 Addended by: MARI HARE on: 10/24/2024 03:37 PM Modules accepted: Orders Normal [facility] BARTONELLA HENSELAE ANTIBODY PANELon 10-17-2024 BARTONELLA HENSELAE IGG <1:64 [facility] Comment on above: Result Comment: INTE [...] developed and its performance characteristics determined by [employer]. It has not been cleared or approved by the [place] Food and Drug Administration. This test was performed in a CLIA certified laboratory and is intended for clinical purposes. Performed By: #### L [id number] ####[facility] ([address] [address] BARTONELLA HENSELAE IGM < 1:16 Normal [facility] Comment on above: Result Comment: INTE [...] developed and its performance characteristics determined by [facility]. It has not been cleared or approved by the [place] Food and Drug Administration. This test was performed in a CLIA certified laboratory and is intended for clinical purposes. Performed By: [facility] [address] [place] [address] Graphic User Interface Designer: Aristeo Salgado MD, PhD CLIA Number: [id number] Performed By: #### L [id number] ####[facility] ([facility])[address] [place] [address] CHLAMYDIA TRACHOMATIS AND NE ISSERIA GONORRHEA, TMAon 10-17-2024 CHLAMYDIA TRACHOMATIS DNA PROBE (PRESENCE) IN UNSP SPEC Negative Normal Negative [facility] Comment on above: Result Comment: No C hlamydia trachomatis rRNA Detected. The Aptima Combo 2 Assay is a FDA approved target amplification nucleic acid probe test that utilizes target capture for the in vitro qualitative detection and differentiation of ribosomal RNA (rRNA) from Chlamydia trachomatis (CT) and/or Neisseria gonorrhoeae (GC) to aid the diagnosis of chlamydial and/or gonococcal urogenital disease using the [employer]er System. The Aptima Combo 2 Assay involves target capture, target amplification by End Frazer-Mediated Amplification (TMA), and the detection of the amplification products (amplicon) by the Hybridization Protection Assay (HPA). The internal process controls of the Sch[employer]er System monitor the target capture, amplification, and detection steps of the assay, this is not intended to control for sampling adequacy. Performed By: #### L [id number] ####[facility] ([facility])[address] [place] [address] NEISSERIA GONORRHOEAE DNA PROBE (PRESENCE) IN UNSP SPEC Negative Normal Negative [facility] Comment on above: Result Comment: No N eisseria gonorrhoeae rRNA Detected. The Aptima Combo 2 Assay is a FDA approved target amplification nucleic acid probe test that utilizes target capture for the in vitro qualitative detection and differentiation of ribosomal RNA (rRNA) from Chlamydia trachomatis (CT) and/or Neisseria gonorrhoeae (GC) to aid the diagnosis of chlamydial and/or gonococcal urogenital disease using the Schaller System. The Aptima Combo 2 Assay involves target capture, target amplification by End Frazer-Mediated Amplification (TMA), and the detection of the amplification products (amplicon) by the Hybridization Protection Assay (HPA). The internal process controls of the [employer] System monitor the target capture, amplification, and detection steps of the assay, this is not intended to control for sampling adequacy. Performed By: #### L [id number] ####[facility] ([facility])[address] [place] [address] HISTOPLASMA ANTIGEN, URINEon 10-17-2024 HISTOPLASMA ANTIGEN URINE INTERP Not detected Normal Not Detected [facility] Comment on above: Result Comment: INTE [...] developed and its performance characteristics determined by [employer]. It has not been cleared or approved by the U.S. Food and Drug Administration. This test was performed in a CLIA-certified laboratory and is intended for clinical purposes. Performed By: [facility] [address] [place] [id number] Graphic User Interface Designer: Aristeo Salgado MD, PhD CLIA Number: [id number] Performed By: #### L [id number] #### [facility] ([facility]) [address] [place] [address] HISTOPLASMA ANTIGEN URINE QUANT Not detected Normal [facility] Comment on above: Performed By: #### L [id number] #### [facility] ([facility]) [address] [place] [address] HIV COMBO 4Gon 10-17-2024 HIV COMBO 4G Negative Normal Negative [facility] Comment on above: Performed By: #### L [id number] #### [facility] ([facility]) [address] [place] [address] Office Visiton 10-17-2024 Follow-up visit [id number] Evans Forte 1970 M Date Provider Department [...] Grandmother Daughter Father's Brother Alive Level of Service:04761 [place] OFFICE/OUTPATIENT NEW MODERATE MDM 45 MINUTES Normal [facility] Follow-up visit [id number] Evans Forte 1970 M Provider Department Center 10/17/2024 FAUSTINO GUZMÁN [facility] INF [facility] Family History Problem [...] Grandmother Daughter Father's Brother Alive Level of Service:42987 [place] OFFICE/OUTPATIENT ESTABLISHED LOW MDM 20 MIN Normal [facility] Orders Onlyon 10-17-2024 Orders Only [id number] Evans Forte 1970 M Date Provider Department Center 10/17/2024 MARIE LOZA [facility] DERM [facility] Family History Problem [...] Maternal Grandmother Daughter Father's Brother Alive Normal [facility] RPRon 10-17-2024 REAGIN AB PRESENCE IN SERUM BY RPR Non-Reactive Normal Nonreactive [facility] Comment on above: Performed By: #### L [id number] #### [facility] ([facility]) [address] [place] [address] Provider Orderson 09-25-2024 Provider Orders [id number] [facility] Orders Onlyon 09-14-2024 Orders Only [id number] Evans Forte 1970 M Date Provider Department Center 09/14/2024 FAUSTINO GUZMÁN [facility] INF [facility] He[facility] Family History Problem [...] Maternal Grandmother Daughter Father's Brother Alive Normal [facility] Office Visiton 09-05-2024 Follow-up visit [id number] Evans Forte 1970 M Date Provider Department Center 09/05/2024 ERICK MATOS [facility] SURG Second Fl Family History Problem [...] Grandmother Daughter Father's Brother Alive Level of Service:07484 [place] OFFICE/OUTPATIENT ESTABLISHED SF MDM 10 MIN Reason for Visit and Comments: Post-op [483] - Evans is here today for post op visit: enlarged lymph node, s/p 08/22/24 excisional lymph node biopsy Normal [facility] Basic Metabolic Panelon 08-07 Anion gap [Moles/Vol] 19.7 mmol/L High 6.0-15.0 [facility] Comment on above: Performed By: #### C RP, BMP, CBC, ESR #### [address] Calcium [Mass/Vol] 9.6 mg/dL Normal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 is entirely submitted in 6 cassettes. Lisette North, Pathologists' Counter Intelligence Agent Performed By: #### L [id number] ####[facility] ([facility])[address] [place] [address] LAB AP MICROSCOPIC DESCRIPTION Microscopic examination performed. [facility] Comment on above: Order Comment: Pre-o p diagnosis:Enlarged lymph node [R59.9] Performed By: #### L [id number] ####[facility] ([facility])[address] [place] [address] LAB AP REPORT FINAL DIAGNOSIS NARRATIVE [facility] Comment on above: Order Comment: Pre-o p diagnosis:Enlarged lymph node [R59.9] Result Comment: A-B. Lymph node, right groin, excision: - Lymph node with reactive follicular hyperplasia, plasmacytosis and focally thickened capsule. - No evidence of malignancy. - See comment. Performed By: #### L [id number] ####[facility] ([facility])[address] [place] [address] HPon 08-22-2024 H&P reviewed. The patient was examined and there are no changes to the H&P. [facility] Labon 08-22-2024 Lab [id number] Evans Forte 1970 M Date Provider Department Center 08/22/2024 2245-[facility] OPD LAB RESOURCE [facility] OPD [place] Medical C Family History Problem Relation Age [...] Maternal Grandmother Daughter Father's Brother Alive [facility] OPNOTEon 08-22-2024 OPNOTE EXCISIONAL RIGHT TYRONE IN LYMPH NODE BIOPSY (R) Operative Note Date: 08/22/2024 Location: [facility] OR Name: Evans Forte, : 1970, [...] FLOW CYTOMETRY Erick Carter MD 08/22/241655 Routine [id number] Description: right groin flow cytometry A Lymph Node Tissue HISTOLOGY - TISSUE EXAM Erick Carter MD 08/22/241655 Routine Description: right groin permanent Staff: Monomer Recovery Operator: Aristeo Lisa RN Scrub Person: Waldemar [...] count and sponge count were correct. [facility] POCT GLUCOSE METER UNSOLICIT ED RESULTSon 08-22-2024 Glucose [Mass/Vol] 97 mg/dL Normal 70-105 [facility] Comment on above: Order Comment: Waive d Testing in the ED is performed under the ED CLIA certificate #[id number]. Result Comment: skir by Performed By: #### L [id number] #### [facility] HOSPITAL LAB (BEAKER) [address] [place] [address] Glucose [Mass/Vol] 115 mg/dL High 70-105 [facility] Comment on above: Order Comment: Waive d Testing in the ED is performed under the ED CLIA certificate #[id number]. Result Comment: dhol as Performed By: #### L [id number] #### [facility] LAB (SASHA) [address] [place] [address] PROTIME-INRon 08-22-2024 INR IN PPP BY COAGULATION ASSAY 1.01 Normal 0.90-1.10 [facility] Comment on above: Result Comment: ACCC [...] 1995;108:231S-246S. Performed By: #### L [id number] #### [facility] ([facility]) [address] [place] [address] PROTHROMBIN TIME (PT) IN PPP BY COAGULATION ASSAY 13.3 Seconds Normal 12.3-14.8 [facility] Comment on above: Performed By: #### L [id number] #### [facility] ([facility]) [address] [place] [address] Orders Onlyon 08-18-2024 Orders Only [id number] Evans Forte 1970 M Date Provider Department Center 08/18/2024 ANNCY REYES [facility]RO [facility] Family History Problem Relation Age [...] Maternal Grandmother Daughter Father's Brother Alive [facility] Consulton 08-08-2024 Consult [id number] Evans Forte 1970 M Date Provider Department Center 08/08/2024 CARLO ERICK [facility] SURG Second Fl Family History Problem [...] Grandmother Daughter Father's Brother Alive Level of Service:30909 [place] OFFICE/OUTPATIENT NEW LOW [facility] 30 MINUTES Reason for Visit and Comments: Consult [484] - Patient is here today for enlarged lymph nodes and is s/p PET scan. [facility] HPon 08-08-2024 HP Subjective Patient ID: [...] skull base to mid thigh FDG Order: [id number] Status: Final result Visible to patient: Yes (seen) Dx: Enlarged lymph nodes; Pre-transplant ... 0 Result Notes Details Reading Physician Reading Date Result Priority Alonso Jaffe MD [phone] 07/31/2024 Routine Narrative & Impression History: Pretransplant [...] CT abdomen pelvis wo renal recipient Order: [id number] Status: Edited Result - FINAL Visible to patient: Yes (seen) Dx: Pre-transplant evaluation for kidney ... 0 Result Notes Details Reading Physician Reading Date Result Priority Alonso Sampson MD [phone] 07/12/2024 Routine Addenda Addendum: Note that there [...] No suspiciou (more content not included)... [facility] 36on 07-31-2024 36 Patient contacted [facility] regarding the results of his [...] Patient verbalized understanding. Maria De Jesus Rutledge, JACOB [facility] POCT GLUCOSE METER UNSOLICIT ED RESULTSon 07-28-2024 Glucose [Mass/Vol] 125 mg/dL High 70-105 [facility] Comment on above: Order Comment: Waive d Testing in the ED is performed under the ED CLIA certificate #[id number]. Result Comment: solange [email or web address] Performed By: #### L [id number] ####[facility] HOSPITAL LAB (SASHA)[address] [place] [address] [facility] 07-27-2024 History Of Present Illness Evans Forte [...] a past medical history of Adrenal nodule ([facility]), Anemia, Anxiety, Charcot foot due to diabetes mellitus ([facility]/HCC), Chronic sinusitis, COVID-19, Diabetic foot ulcers ([facility]/HCC), Diabetic polyneuropathy (CMS/HCC), Diabetic retinopathy (CMS/HCC), ED (erectile dysfunction), ESRD (end stage renal disease) ([facility]/HCC) (11/23/2022), GERD (gastroesophageal reflux disease), Glaucoma, History of tobacco use, Hyperlipidemia, Hypertension, Hypogonadism in male, Hypothyroidism, Insomnia, Neuropathy, Obesity, Osteomyelitis of ankle or foot, left, acute (CMS/HCC), Pancreatitis, Past history of chewing tobacco use, Peripheral artery disease (CMS/HCC), Proteinuria, Sleep apnea, Type 2 diabetes mellitus (CMS/HCC), and Vitamin D deficiency. Surgical History He [...] Adhesive tape-silicones, Latex, Vancomycin, Adhesive, Haloperidol, and Hemphill oil Medications Medications Prior to Admission Medication [...] Exam Constitutional: Appearan (more content not included)... [facility] NURSNOTEon 07-27-2024 NURSNOTE RN educated pt [...] off of unit with all of belongings. [facility] NURSNOTE .amparo [facility] Office Visiton 07-25-2024 Follow-up visit [id number] Evans Forte 1970 M Date Provider Department Center 07/25/2024 FAUSTINO GUZMÁN [facility] INF [facility] Family History Problem Relation Age of Onset Breast cancer Mother Comments: age 53, METS to brain Heart disease Father Heart attack Father Comments: age 26 No Known Problems Sister Comments: half-sister Crohn's disease Daughter Comments: perforated bowel Family Status - Relation Status Age at Mother Father Sister Daughter Level of Service:08121 AR OFFICE/OUTPATIENT NEW LOW [facility]DM 30 MINUTES [facility] Documentationon 07-14-2024 Documentation [id number] Evans Forte Ac 1970 M Date Provider Department Center 07/14/2024 11149-NGREWNFBRQMELINDA KEEN None Family History Problem Relation Age of Onset Breast cancer Mother Comments: age 53, METS to brain Heart disease Father Heart attack Father Comments: age 26 No Known Problems Sister Comments: half-sister Crohn's disease Daughter Comments: perforated bowel Family Status - Relation Status Age at Mother Father Sister Daughter [facility] 36on 07-12-2024 36 TC contacted patient regarding CT results. No answer. Left voicemail. Melinda Keen, RN [facility] B-TYPE NATRIURETIC PEPTIDEon 07-11-2024 Natriuretic peptide B (Bld) [Mass/Vol] 43 pg/mL Normal 0-100 [facility] Comment on above: Performed By: #### L [id number] ####[facility] ([facility])[address] [place] [address] BILIRUBIN, DIRECTon 07-11-20 24 Magnesium [Mass/Vol] 0.1 mg/dL Normal 0-0.2 [facility] Comment on above: Performed By: #### L [id number] ####[facility] ([facility])[address] [place] [address] CBC WITH AUTO DIFFERENTIALon 07-11-2024 Basophils (Bld) [#/Vol] 0.08 10*3/uL Normal 0.00-0.20 [facility] Comment on above: Performed By: #### L [id number] ####[facility] ([facility])[address] [place] [address] Basophils/100 WBC (Bld) 1.0 % Normal 0.0-1.0 [facility] Comment on above: Performed By: #### L [id number] ####[facility] (BEAKER)[address] [place] [address] Eosinophils (Bld) [#/Vol] 0.30 10*3/uL Normal 0.00-0.50 [facility] Comment on above: Performed By: #### L [id number] ####[facility] (BEAKER)[address] [place] [address] Eosinophils/100 WBC (Bld) 3.6 % Normal 0.0-6.0 [facility] Comment on above: Performed By: #### L [id number] ####[facility] ([facility])[address] [place] [address] Erythrocyte distribution width (RBC) [Ratio] 14.6 % Normal 11.5-15.0 [facility] Comment on above: Performed By: #### L [id number] ####[facility] ([facility])[address] [place] [address] ERYTHROCYTE MEAN CORPUSCULAR HEMOGLOBIN CONCENTRATION (G/DL) BY AUTOMATED 32.8 g/dL Normal 32.0-35.0 [facility] Comment on above: Performed By: #### L [id number] ####[facility] ([facility])[address] [place] [address] Hematocrit (Bld) [Volume fraction] 36.3 % Low 39.0-55.0 [facility] Comment on above: Performed By: #### L [id number] ####[facility] (BEAKER)[address] [place] [address] Hemoglobin (Bld) [Mass/Vol] 11.9 g/dL Low 13.0-17.0 [facility] Comment on above: Performed By: #### L [id number] ####[facility] (BEAKER)[address] [place] [address] Immature granulocytes (Bld) [#/Vol] 0.08 10*3/uL Normal 0.00-0.20 [facility] Comment on above: Performed By: #### L [id number] ####[facility] (BEAKER)[address] [place] [address] Immature granulocytes/100 WBC (Bld) 1.0 % Normal 0.0-1.0 [facility] Comment on above: Performed By: #### L [id number] ####[facility] ([facility] [place] [address] Lymphocytes (Bld) [#/Vol] 2.21 10*3/uL Normal 1.20-4.00 [facility] Comment on above: Performed By: #### L [id number] ####[facility] ([facility] [place] [address] Lymphocytes/100 WBC (Bld) 26.5 % Normal 20.0-45.0 [facility] Comment on above: Performed By: #### L [id number] ####[facility] ([facility])[address] [place] [address] MCH (RBC) [Entitic mass] 30.1 pg Normal 27.0-33.0 [facility] Comment on above: Performed By: #### L [id number] ####[facility] ([facility])[address] [place] [address] MCV (RBC) [Entitic vol] 91.9 fL Normal 82.0-98.0 [facility] Comment on above: Performed By: #### L [id number] ####[facility] ([facility])[address] [place] [address] Monocytes (Bld) [#/Vol] 0.82 10*3/uL Normal 0.10-1.00 [facility] Comment on above: Performed By: #### L [id number] ####[facility] (BEAKER)[address] [place] [address] Monocytes/100 WBC (Bld) 9.8 % Normal 5.0-12.0 [facility] Comment on above: Performed By: #### L [id number] ####[facility] (BEAKER)[address] [place] [address] Neutrophils (Bld) [#/Vol] 4.84 10*3/uL Normal 1.60-7.60 [facility] Comment on above: Performed By: #### L [id number] ####[facility] ([facility])[address] [place] [address] Neutrophils/100 WBC (Bld) 58.1 % Normal 40.0-72.0 [facility] Comment on above: Performed By: #### L [id number] ####[facility] ([facility])[address] [place] [address] NRBC (PER 100 WBCS) BY AUTOMATED COUNT 0.0 % Normal 0 [facility] Comment on above: Performed By: #### L [id number] ####[facility] ([facility])[address] [place] [address] PLATELETS (10*3/UL) IN BLOOD AUTOMATED COUNT 331 10*3/uL Normal 150-400 [facility] Comment on above: Performed By: #### L [id number] ####[facility] ([facility])[address] [place] [address] RBC (Bld) [#/Vol] 3.95 10*6/uL Low 4.20-5.70 [facility] Comment on above: Performed By: #### L [id number] ####[facility] ([facility])[address] [place] [address] WBC (Bld) [#/Vol] 8.33 10*3/uL Normal 4.00-10.60 [facility] Comment on above: Performed By: #### L [id number] ####[facility] ([facility])[address] [place] [address] COMPREHENSIVE METABOLIC PANE Nick 07-11-2024 Albumin [Mass/Vol] 4.2 g/dL Normal 3.5-5.7 [facility] Comment on above: Performed By: #### L [id number] ####[facility] ([facility])[address] [place] [address] ALP [Catalytic activity/Vol] 115 U/L High 34-104 [facility] Comment on above: Performed By: #### L [id number] ####[facility] HOSPITAL LAB (BEAKER)[address] [place] [address] ALT [Catalytic activity/Vol] 12 U/L Normal 7-52 [facility] Comment on above: Performed By: #### L [id number] ####[facility] (BEAKER)[address] [place] [address] Anion gap [Moles/Vol] 14 mmol/L Normal 7-20 [facility] Comment on above: Performed By: #### L [id number] ####[facility] (BEAKER)[address] [place] [address] AST [Catalytic activity/Vol] 8 U/L Low 13-39 [facility] Comment on above: Performed By: #### L [id number] ####[facility] (BEAKER)[address] [place] [address] Bilirubin [Mass/Vol] 0.5 mg/dL Normal 0.3-1.0 [facility] Comment on above: Performed By: #### L [id number] ####[facility] (BEAKER)[address] [place] [address] Calcium [Mass/Vol] 9.4 mg/dL Normal 8.6-10.3 [facility] Comment on above: Performed By: #### L [id number] ####[facility] HOSPITAL LAB (BEAKER)[address] [place] [address] Chloride [Moles/Vol] 98 mmol/L Normal 98-107 [facility] Comment on above: Performed By: #### L [id number] ####[facility] HOSPITAL LAB (BEAKER)[address] [place] [address] CO2 [Moles/Vol] 31 mmol/L Normal 21-31 [facility] Comment on above: Performed By: #### L [id number] ####[facility] HOSPITAL LAB (BEAKER)[address] [place] [address] Creatinine [Mass/Vol] 7.27 mg/dL High 0.70-1.30 [facility] Comment on above: Performed By: #### L [id number] ####[facility] ([facility])[address] [place] [address] GLOMERULAR FILTRATION RATE ML/MIN/1.73 SQ M.PREDICTED 8.3 mL/min/1.73m*2 Low >60.0 [facility] Comment on above: Result Comment: [facility]???s estimated glomerular filtration rate (eGFR) will [...] of individuals. Performed By: #### L [id number] ####[facility] ([facility])[address] [place] [address] Glucose [Mass/Vol] 216 mg/dL High 70-100 [facility] Comment on above: Performed By: #### L [id number] ####[facility] ([facility])[address] [place] [address] Potassium [Moles/Vol] 4.1 mmol/L Normal 3.5-5.1 [facility] Comment on above: Performed By: #### L [id number] ####[facility] ([facility])[address] [place] [address] Protein [Mass/Vol] 7.6 g/dL Normal 6.0-8.3 [facility] Comment on above: Performed By: #### L [id number] ####[facility] ([facility])[address] [place] [address] Sodium [Moles/Vol] 139 mmol/L Normal 136-145 [facility] Comment on above: Performed By: #### L [id number] ####[facility] ([facility])[address] [place] [address] Urea nitrogen [Mass/Vol] 53 mg/dL High 7-25 [facility] Comment on above: Performed By: #### L [id number] ####[facility] ([place] [address] UREA NITROGEN/CREATININE (MASS RATIO) IN SER/PLAS 7.3 [facility] Comment on above: Performed By: #### L [id number] ####[facility] ([facility])[address] [place] [address] CT ABDOMEN PELVIS WO RENAL R ECIPIENTon [...] reasonably achievable. Electronically signed: Alonso Sampson. [facility] HEMOGLOBIN A1Con 07-11-2024 Glucose [Mass/Vol] 166 mg/dL Normal [facility] Comment on above: Performed By: #### L [id number] ####[facility] ([facility])[address] [place] [address] HbA1c (Bld) [Mass fraction] 7.4 % High 4.0-6.0 [facility] Comment on above: Performed By: #### L [id number] ####[facility] ([facility])[address] [place] [address] HEPATITIS A ANTIBODY, IGMon 07-11-2024 HEPATITIS A VIRUS IGM AB PRESENCE IN SER/PLAS Non-Reactive Normal Nonreactive [facility] Comment on above: Performed By: #### L [id number] #### [facility] ([facility]) [address] [place] [address] HEPATITIS B CORE ANTIBODY, I GMon 07-11-2024 HEPATITIS B VIRUS CORE IGM AB PRESENCE IN SER/PLAS BY IMMUNOASSY Negative Normal Negative [facility] Comment on above: Result Comment: INTE RPRETIVE INFORMATION: Hepatitis B Core Ab, IgM This assay should not be used for blood donor screening, associated re-entry protocols, or for screening Human Cells, Tissues and Cellular and Tissue-Based Products (HCT/P). Performed By: [employer] [address] [place] [address] Graphic User Interface Designer: Aristeo Salgado MD, PhD CLIA Number: [id number] Performed By: #### L [id number] #### [facility] ([facility]) [address] [place] [address] HEPATITIS B CORE ANTIBODY, T OTALon 07-11-2024 HEPATITIS B VIRUS CORE AB (PRESENCE) IN SER/PLAS BY IMM Non-Reactive Normal Nonreactive [facility] Comment on above: Performed By: #### L [id number] ####[facility] ([facility])[address] [place] [address] HEPATITIS B SURFACE ANTIBODY QUANTon 07-11-2024 HEPATITIS B VIRUS SURFACE AB (MIU/ML) IN SERUM 1.48 mIU/mL Normal [facility] Comment on above: Result Comment: INTE RPRETATION: NONREACTIVE <8.00 mIU/mL INDETERMINATE 8.00 - 12.00 mIU/mL REACTIVE >12 mIU/mL Performed By: #### L [id number] #### [facility] ([facility]) [address] [facility] [place] [address] HEPATITIS B SURFACE ANTIGENo n 07-11-2024 HEPATITIS B VIRUS SURFACE AG PRESENCE IN SERUM Non-Reactive Normal Nonreactive [facility] Comment on above: Performed By: #### L [id number] ####[facility] ([facility])[address] [place] [address] HEPATITIS C ANTIBODYon 07-11 HEPATITIS C VIRUS AB PRESENCE IN SERUM Non-Reactive Normal Nonreactive [facility] Comment on above: Performed By: #### L [id number] ####[facility] ([facility])[address] [place] [address] HIV COMBO 4Gon 07-11-2024 HIV COMBO 4G Negative Normal Negative [facility] Comment on above: Performed By: #### L [id number] ####[facility] ([facility])[address] [place] [address] HLA ABC CLASS I TYPINGon A*-1 2 [facility] Comment on above: Performed By: #### L [id number] #### [facility] ([facility]) [address] [place] [address] A*-2 25 [facility] Comment on above: Performed By: #### L [id number] #### [facility] ([facility]) [address] [place] [address] B*-1 44 [facility] Comment on above: Performed By: #### L [id number] #### [facility] ([facility]) [address] [place] [address] B*-2 57 [facility] Comment on above: Performed By: #### L [id number] #### [facility] ([facility]) [address] [place] [address] BW*-1 4 [facility] Comment on above: Performed By: #### L [id number] #### [facility] ([facility]) [address] [place] [address] C*-1 5 [facility] Comment on above: Performed By: #### L [id number] #### [facility] ([facility]) [address] [place] [address] C*-2 6 [facility] Comment on above: Performed By: #### L [id number] #### [facility] ([facility]) [address] [place] [address] HLA ABC CLASS I TYPING TEST METHOD Class I typing by PCR-SSOP [employer] Comment on above: Performed By: #### L [id number] #### [facility] ([facility]) [address] [place] [address] HLA ABC TESTED DATE [id number] [facility] Comment on above: Performed By: #### L [id number] #### [facility] ([facility]) [address] [place] [address] CLASS II TYPINGon DPB1*-1 04:01 [facility] Comment on above: Performed By: #### L [id number] #### [facility] ([facility]) [address] [place] [address] DPB1*-2 04:01 [facility] Comment on above: Performed By: #### L [id number] #### [facility] HOSPITAL LAB (BEAKER) [address] [place] [address] DQA1*-1 01 [facility] Comment on above: Performed By: #### L [id number] #### [facility] (BEAKER) [address] [place] [address] DQA1*-2 02 [facility] Comment on above: Performed By: #### L [id number] #### [facility] ([facility]) [address] [facility] [address] DQB1*-1 9 [facility] Comment on above: Performed By: #### L [id number] #### [facility] ([facility]) [address] [facility] [address] DQB1*-2 5 [facility] Comment on above: Performed By: #### L [id number] #### [facility] ([facility]) [address] [facility] [address] DRB1*-1 1 [facility] Comment on above: Performed By: #### L [id number] #### [facility] ([facility]) [address] [place] [address] DRB1*-2 7 [facility] Comment on above: Performed By: #### L [id number] #### [facility] ([facility]) [address] [place] [address] DRB4*-2 53N [facility] Comment on above: Performed By: #### L [id number] #### [facility] ([facility]) [address] [place] [address] HLA COMMENTS Due to available spa ce, 53N represents the DRB4*01:03:01:02N null allele. [facility] Comment on above: Performed By: #### L [id number] #### [facility] ([facility]) [address] [place] [address] CLASS II TYPING TEST METHOD Class II typing by PCR-SSOP [employer] Comment on above: Performed By: #### L [id number] #### [facility] ([facility]) [address] [place] [address] TESTED DATE [id number] [facility] Comment on above: Performed By: #### L [id number] #### [facility] ([facility]) [address] [place] [address] LIPID PANELon 07-11-2024 CHOL/HDL 5.5 mg/dL Normal [facility] Comment on above: Performed By: #### L [id number] ####[facility] ([facility])[address] [place] [address] Cholesterol [Mass/Vol] 186 mg/dL Normal 120-200 Un [facility] Comment on above: Performed By: #### L [id number] ####[facility] ([facility])[address] [place] [address] Magnesium [Mass/Vol] 237 mg/dL High 40-149 [facility] Comment on above: Result Comment: TRIG LYCERIDE REFERENCE RANGE: 20 YEARS AND OLDER CARDIOVASCULAR RISK LESS THAN 150 mg/dL LOW RISK 150 TO 199 mg/dL BORDERLINE RISK 200 mg/dL AND GREATER HIGH RISK Performed By: #### L [id number] ####[facility] ([facility])[address] [place] [facility] [place] [address] Magnesium [Mass/Vol] 105 mg/dL Normal 0-160 [facility] Comment on above: Performed By: #### L [id number] ####[facility] ([facility])[address] [place] [facility] [address] Magnesium [Mass/Vol] 34 mg/dL Normal 23-92 [facility] Comment on above: Performed By: #### L [id number] ####[facility] ([facility])[address] [facility] [place] [address] NON HDL CHOL. (LDL+VLDL) 152 Normal [facility] Comment on above: Performed By: #### L [id number] ####[facility] ([facility])[address] [facility] [address] TOTAL VLDL-C 47 mg/dL High 0-40 [facility] Comment on above: Performed By: #### L [id number] ####[facility] ([facility])[address] [facility] [address] PANEL REACTIVE ANTIBODYon HOLD SPECIMEN Hold for add-ons. Normal [facility] Comment on above: Result Comment: Auto resulted. Performed By: #### L [id number] ####[facility] TISSUE TYPING (HISTOTRAC)[address] [place] [address] [place] PROTIME-INRon 07-11-2024 INR IN PPP BY COAGULATION ASSAY 1.08 Normal 0.90-1.10 [facility] Comment on above: Result Comment: ACCC [...] CHEST 1995;108:231S-246S. Performed By: #### L [id number] ####[facility] (BEAKER)[address] [place] [address] PROTHROMBIN TIME (PT) IN PPP BY COAGULATION ASSAY 14.0 Seconds Normal 12.3-14.8 [facility] Comment on above: Performed By: #### L [id number] ####[facility] (BEAKER)[address] [place] [address] PSA, SCREENINGon 07-11-2024 PROSTATE SPECIFIC AG (NG/ML) IN SER/PLAS 1.4 ng/mL Normal 0.4-4 [facility] Comment on above: Performed By: #### L [id number] ####[facility] (BEAKER)[address] [place] [address] SINGLE ANTIGEN CLASS Ion CLASS I LOW RISK AB A:23 29 B:8 Normal [facility] Comment on above: Performed By: #### L [id number] #### [facility] HOSPITAL LAB ([facility]) [address] [place] [address] CLASS I SPECIFICITY AB A:11 B:76 Normal Un [facility] Comment on above: Performed By: #### L [id number] #### [facility] ([facility]) [address] [place] [address] CLASS I TESTED DATE Normal [facility] Comment on above: Performed By: #### L [id number] #### [facility] ([facility]) [address] [place] [address] SINGLE ANTIGEN CLASS 1 TEST METHOD Class I Single Antigen Normal [facility] Comment on above: Performed By: #### L [id number] #### [facility] ([facility]) [address] [place] [address] SINGLE ANTIGEN CLASS IIon CLASS II LOW RISK AB DRw:53 Normal [facility] Comment on above: Performed By: #### L [id number] #### [facility] TISSUE TYPING (HISTOTRAC) [address] [place] [address] [place] CLASS II TESTED DATE [facility] Comment on above: Performed By: #### L [id number] #### [facility] TISSUE TYPING (HISTOTRAC) [address] [facility] [place] [address] [place] CPRA 12 [facility] Comment on above: Performed By: #### L [id number] #### [facility] TISSUE TYPING (HISTOTRAC) [address] [place] [address] [place] Performed By: #### L [id number] #### [facility] HOSPITAL LAB (BEAKER) [address] [place] [address] SIGNED BY Signed by Delano betancourt C[facility] MT(ASCP), Stacker And Sorter Operator Transplant Immunology [facility] Comment on above: Performed By: #### L [id number] #### [facility] TISSUE TYPING (HISTOTRAC) [address] [place] [address] [facility] Performed By: #### L [id number] #### [facility] HOSPITAL LAB (BEAKER) [address] [place] [address] Result Comment: Clas s I Antigen Microbeads SINGLE ANTIGEN CLASS 2 TEST METHOD Class II Single Antigen Normal [facility] Comment on above: Result Comment: Clas s II Antigen Microbeads Performed By: #### L [id number] #### [facility] TISSUE TYPING (HISTOTRAC) [address] [place] [address] [facility] TESTOSTERONE, FREE AND TOTAL , AND SHBGon 07-11-2024 SEX HORMONE BINDING GLOBULIN (NMOL/L) IN SER/PLAS 14 nmol/L Low 19-76 [facility] Comment on above: Performed By: #### L [id number] ####[employer] [id number] [place] [address] TESTOSTERONE (NG/DL) IN SER/PLAS 408 ng/dL Normal 193-740 [facility] Comment on above: Performed By: #### L [id number] ####[employer] [id number] [place] [address] TESTOSTERONE FREE (NG/ML) IN SER/PLAS 122.7 pg/mL Normal 47.0-244.0 [facility] Comment on above: Result Comment: The concentration of free testosterone is derived from a mathematical expression based on the constant for the binding of testosterone to albumin and/or sex hormone binding globulin. Test Performed by [employer] [facility] [place] [address] - Released 07/11/2024 18:27 Performed By: #### L [id number] ####[employer] [id number] [place] [address] TYPE AND SCREENon 07-11-2024 AB SCREEN Negative Normal [facility] Comment on above: Performed By: #### L [id number] ####[facility] BLOOD BANK, ABO group Nom (Bld) A Normal [facility] Comment on above: Performed By: #### L [id number] ####[facility] BLOOD BANK, RH TYPE IN BLOOD Positive Normal [facility] Comment on above: Performed By: #### L [id number] ####[facility] BLOOD BANK, BASIC METABOLIC PANELon 10- Anion gap [Moles/Vol] 16 mmol/L Normal 7-20 [facility] Comment on above: Performed By: #### L [id number] ####[facility] ([facility])[address] [place] [address] Calcium [Mass/Vol] 8.7 mg/dL Normal 8.6-10.3 [facility] Comment on above: Performed By: #### L [id number] ####[facility] ([facility])[address] [place] [address] Chloride [Moles/Vol] 101 mmol/L Normal 98-107 [facility] Comment on above: Performed By: #### L [id number] ####[facility] ([facility])[address] [place] [address] CO2 [Moles/Vol] 25 mmol/L Normal 21-31 [facility] Comment on above: Performed By: #### L [id number] ####[facility] ([facility])[address] [facility] [address] Creatinine [Mass/Vol] 7.29 mg/dL High 0.70-1.30 [facility] Comment on above: Performed By: #### L [id number] ####[facility] ([facility])[address] [place] [address] GLOMERULAR FILTRATION RATE ML/MIN/1.73 SQ M.PREDICTED 8.3 mL/min/1.73m*2 Low >60.0 [facility] Comment on above: Result Comment: [facility]???s estimated glomerular filtration rate (eGFR) will [...] of individuals. Performed By: #### L [id number] ####[facility] ([facility])[address] [place] [address] Glucose [Mass/Vol] 126 mg/dL High 70-100 [facility] Comment on above: Performed By: #### L [id number] ####[facility] ([facility])[address] [place] [address] Potassium [Moles/Vol] 4.4 mmol/L Normal 3.5-5.1 [facility] Comment on above: Performed By: #### L [id number] ####[facility] ([facility])[address] [place] [address] Sodium [Moles/Vol] 138 mmol/L Normal 136-145 [facility] Comment on above: Performed By: #### L [id number] ####[facility] ([facility])[address] [place] [address] Urea nitrogen [Mass/Vol] 67 mg/dL High 7-25 [facility] Comment on above: Performed By: #### L [id number] ####[facility] ([facility])[address] [place] [address] UREA NITROGEN/CREATININE (MASS RATIO) IN SER/PLAS 9.2 Normal [facility] Comment on above: Performed By: #### L [id number] ####[facility] ([facility])[address] [place] [address] CBC WITH AUTO DIFFERENTIALon 06-22-2024 Basophils (Bld) [#/Vol] 0.03 10*3/uL Normal 0.00-0.20 [facility] Comment on above: Performed By: #### L [id number] ####[facility] ([facility])[address] [place] [address] Basophils/100 WBC (Bld) 0.3 % Normal 0.0-1.0 [facility] Comment on above: Performed By: #### L [id number] ####[facility] ([facility] [place] [address] Eosinophils (Bld) [#/Vol] 0.24 10*3/uL Normal 0.00-0.50 [facility] Comment on above: Performed By: #### L [id number] ####[facility] ([facility])[address] [place] [address] Eosinophils/100 WBC (Bld) 2.1 % Normal 0.0-6.0 [facility] Comment on above: Performed By: #### L [id number] ####[facility] ([facility])[address] [place] [address] Erythrocyte distribution width (RBC) [Ratio] 15.2 % High 11.5-15.0 [facility] Comment on above: Performed By: #### L [id number] ####[facility] ([facility])[address] [place] [address] ERYTHROCYTE MEAN CORPUSCULAR HEMOGLOBIN CONCENTRATION (G/DL) BY AUTOMATED 32.7 g/dL Normal 32.0-35.0 [facility] Comment on above: Performed By: #### L [id number] ####[facility] ([facility])[address] [place] [address] Hematocrit (Bld) [Volume fraction] 37.0 % Low 39.0-55.0 [facility] Comment on above: Performed By: #### L [id number] ####[facility] ([facility])[address] [place] [address] Hemoglobin (Bld) [Mass/Vol] 12.1 g/dL Low 13.0-17.0 [facility] Comment on above: Performed By: #### L [id number] ####[facility] (BEAKER)[address] [place] [address] Immature granulocytes (Bld) [#/Vol] 0.07 10*3/uL Normal 0.00-0.20 [facility] Comment on above: Performed By: #### L [id number] ####[facility] (BEAKER)[address] [place] [address] Immature granulocytes/100 WBC (Bld) 0.6 % Normal 0.0-1.0 [facility] Comment on above: Performed By: #### L [id number] ####[facility] (BEAKER)[address] [place] [address] Lymphocytes (Bld) [#/Vol] 2.10 10*3/uL Normal 1.20-4.00 [facility] Comment on above: Performed By: #### L [id number] ####[facility] ([facility])[address] [place] [address] Lymphocytes/100 WBC (Bld) 18.2 % Low 20.0-45.0 [facility] Comment on above: Performed By: #### L [id number] ####[facility] (BEAKER)[address] [place] [address] MCH (RBC) [Entitic mass] 30.5 pg Normal 27.0-33.0 [facility] Comment on above: Performed By: #### L [id number] ####[facility] (BEAKER)[address] [place] [address] MCV (RBC) [Entitic vol] 93.2 fL Normal 82.0-98.0 [facility] Comment on above: Performed By: #### L [id number] ####[facility] (BEAKER)[address] [place] [address] Monocytes (Bld) [#/Vol] 0.88 10*3/uL Normal 0.10-1.00 [facility] Comment on above: Performed By: #### L [id number] ####[facility] (BEAKER)[address] [place] [address] Monocytes/100 WBC (Bld) 7.6 % Normal 5.0-12.0 [facility] Comment on above: Performed By: #### L [id number] ####[facility] (BEAKER)[address] [place] [address] Neutrophils (Bld) [#/Vol] 8.22 10*3/uL High 1.60-7.60 [facility] Comment on above: Performed By: #### L [id number] ####[facility] ([facility])[address] [place] [address] Neutrophils/100 WBC (Bld) 71.2 % Normal 40.0-72.0 [facility] Comment on above: Performed By: #### L [id number] ####[facility] ([facility])[address] [place] [address] NRBC (PER 100 WBCS) BY AUTOMATED COUNT 0.0 % Normal 0 [facility] Comment on above: Performed By: #### L [id number] ####[facility] ([facility])[address] [place], [place] [address] PLATELETS (10*3/UL) IN BLOOD AUTOMATED COUNT 294 10*3/uL Normal 150-400 [facility] Comment on above: Performed By: #### L [id number] ####[facility] ([facility])[address] [place] [address] RBC (Bld) [#/Vol] 3.97 10*6/uL Low 4.20-5.70 [facility] Comment on above: Performed By: #### L [id number] ####[facility] ([facility])[address] [place], [place] [address] WBC (Bld) [#/Vol] 11.54 10*3/uL High 4.00-10.60 [facility] Comment on above: Performed By: #### L [id number] ####[facility] ([facility])[address] [place], [place] [address] Follow-Upon 06-22-2024 Follow-Up [id number] Evans Forte 1970 M Date Provider Department Center 06/22/2024 [facility] [place] [facility] Family History Problem Relation Age of Onset Breast cancer Mother Comments: age 53, METS to brain Heart disease Father Heart attack Father Comments: age 26 No Known Problems Sister Comments: half-sister Crohn's disease Daughter Comments: perforated bowel Family Status - Relation Status Age at Mother Father Sister Daughter Level of Service:99941 [place] OFFICE/OUTPATIENT NEW HIGH MDM 60 MINUTES Reason for Visit and Comments: Cardiac evaluation for transplant [Other] - Follow for abnormal stress done 06/13/2024 Normal [facility] Labon 06-22-2024 Lab [id number] Evans Forte 1970 M Date Provider Department Center 06/22/2024 2245-[facility] OPD LAB RESOURCE [facility]PD [facility] Family History Problem Relation Age of Onset Breast cancer Mother Comments: age 53, METS to brain Heart disease Father Heart attack Father Comments: age 26 No Known Problems Sister Comments: half-sister Crohn's disease Daughter Comments: perforated bowel Family Status - Relation Status Age at Mother Father Sister Daughter [facility] HISTOLOGY - TISSUE EXAMon LAB AP CASE REPORT Normal [facility] Comment on above: Result Comment: Surg ical Pathology Case: [id number] Authorizing Provider: Anya Henley MD Collected: 06/20/2024 1141 Ordering Location: [facility] Received: 06/20/2024 1309 [facility] Pathologist: Carly Beard MD Specimen: Rectum, RECTUM POLYP Performed By: #### L [id number] ####[facility] (BEAKER)[address] [place] [address] LAB AP CLINICAL INFORMATION Order Diagnoses [facility] Comment on above: Result Comment: Z12. 11 - Screen for colon cancer [ICD-10-CM] Performed By: #### L [id number] ####[facility] (BEAKER)[address] [place] [address] LAB AP GROSS DESCRIPTION A. Rectum. [facility] Comment on above: Result Comment: The [...] Toscano, student fellow Performed By: #### L [id number] ####[facility] ([facility])[address] [place] [address] LAB AP MICROSCOPIC DESCRIPTION Microscopic examination performed. [facility] Comment on above: Performed By: #### L [id number] ####[facility] ([facility])[address] [place] [address] LAB AP REPORT FINAL DIAGNOSIS NARRATIVE [facility] Comment on above: Result Comment: A. C olon, rectal polyp, polypectomy: - Fragments of colonic mucosa with early hyperplastic changes and lymphoid aggregate. - Negative for dysplasia. Performed By: #### L [id number] ####[facility] ([facility])[address] [place] [address] HPon 06-20-2024 HP H&P reviewed. The patient was examined and there are no changes to the H&P. Here for surveillance colonoscopy with hx of multiple and large polyps in 2021 and poor prep. Normal [facility] NURSNOTEon 06-20-2024 NURSNOTE All positioning samaria rakesh removed pt remains supine. Normal [facility] POCT PERFUSION PANEL UNSOLIC ITED RESULTSon 06-20-2024 Glucose [Mass/Vol] 114 mg/dL High 70-105 [facility] Comment on above: Performed By: #### L [id number] ####[facility] ([facility])[address] [place] [address] POCT BASE EXCESS Normal [facility] Comment on above: Performed By: #### L [id number] ####[facility] ([facility])[address] [place] [address] POCT HCO3 [facility] Comment on above: Performed By: #### L [id number] ####[facility] ([facility])[address] [place] [address] POCT HEMATOCRIT Normal [facility] Comment on above: Performed By: #### L [id number] ####[facility] HOSPITAL LAB (BEAKER)[address] [place] [address] POCT HEMOGLOBIN Normal [facility] Comment on above: Performed By: #### L [id number] ####[facility] HOSPITAL LAB (BEAKER)[address] [place] [address] POCT IONIZED CALCIUM Normal [facility] Comment on above: Performed By: #### L [id number] ####[facility] HOSPITAL LAB (BEAKER)[address] [place] [address] POCT PCO2 Normal [facility] Comment on above: Performed By: #### L [id number] ####[facility] (BEAKER)[address] [place] [address] POCT PH Normal [facility] Comment on above: Performed By: #### L [id number] ####[facility] HOSPITAL LAB (BEAKER)[address] [place] [address] POCT PO2 Normal [facility] Comment on above: Performed By: #### L [id number] ####[facility] HOSPITAL LAB (BEAKER)[address] [place] [address] POCT SO2 Normal [facility] Comment on above: Performed By: #### L [id number] ####[facility] HOSPITAL LAB (BEAKER)[address] [place] [address] POCT SODIUM Normal [facility] Comment on above: Performed By: #### L [id number] ####[facility] HOSPITAL LAB (BEAKER)[address] [place] [address] POCT TOTAL CO2 Normal [facility] Comment on above: Performed By: #### L [id number] ####[facility] HOSPITAL LAB (BEAKER)[address] [place] [address] Potassium [Moles/Vol] 4.4 mmol/L Normal 3.5-4.9 [facility] Comment on above: Performed By: #### L [id number] ####[facility] HOSPITAL LAB (BEAKER)[address] [place] [address] Prep for Procedureon 024 Prep for Procedure [id number] Evans Forte 1970 Date Provider Department Center 06/20/2024 ANYA FERRARO [facility] GEORGENathaniel Family History Problem Relation Age of Onset Breast cancer Mother Comments: age 53, METS to brain Heart disease Father Heart attack Father Comments: age 26 No Known Problems Sister Comments: half-sister Crohn's disease Daughter Comments: perforated bowel Family Status - Relation Status Age at Mother Father Sister Daughter [facility] 36on 06-14-2024 36 Patient called TC [...] is needed. 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 Patient stated understanding and scheduled his TE Re-eval for 07/11/24 and asked to be added to the cancellation list for any sooner appointments on Tuesdays and . TC confirmed and sent patient, referring MD and dialysis unit a letter. [facility] Orders Onlyon 06-13-2024 Orders Only [id number] Jama 1970 Date Provider Department Center 06/13/2024 ERMIAS M[facility] Family History Problem Relation Age of Onset Breast cancer Mother Comments: age 53 Heart disease Father Heart attack Father Comments: age 26 No Known Problems Sister Comments: half-sister Crohn's disease Daughter Comments: perforated bowel Family Status - Relation Status Age at Mother Father Sister Daughter [facility] Prep for Procedureon 024 Prep for Procedure [id number] Evans Forte 1970 M Date Provider Department Center 06/13/2024 ANYA FERRARO [facility] ELO Family History Problem Relation Age of Onset Breast cancer Mother Comments: age 53, METS to brain Heart disease Father Heart attack Father Comments: age 26 No Known Problems Sister Comments: half-sister Crohn's disease Daughter Comments: perforated bowel Family Status - Relation Status Age at Mother Father Sister Daughter Normal [facility] Follow-Upon 05-26-2024 Follow-Up [id number] Evans Forte 1970 M Date Provider Department Center 05/26/2024 Jose Daniel-ADAMS TATE [facility] Family History Problem Relation Age of Onset Breast cancer Mother Comments: age 53 Heart disease Father Heart attack Father Comments: age 26 No Known Problems Sister Comments: half-sister Crohn's disease Daughter Comments: perforated bowel Family Status - Relation Status Age at Mother Father Sister Daughter Level of Service:78846 AR OFFICE/OUTPATIENT ESTABLISHED MOD MDM 30 MIN Reason for Visit and Comments: Follow-up [094949] - Lab results Normal [facility] HPon 05-26-2024 HP Subjective Patient ID: [...] with Dialysis 3 x week locally in [place]. Pt labs reviewed: T Levels: 05/23/24 373 [...] Order fax to [place]. 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 No CP or SOB. No N/V/D. No abd/flank pain. Pt continues with better level of fatigue. 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 Plan: Follow up Trimix Trial with Meds. 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 Urination: - amount of urine made: [...] previous fertility (more content not included)... Normal [facility] Orders Onlyon 05-24-2024 Orders Only [id number] Evans Forte 1970 M Date Provider Department Center 05/24/2024 LORETTA ACEVES [facility] PEDRONathaniel Family History Problem Relation Age of Onset Breast cancer Mother Comments: age 53 Heart disease Father Heart attack Father Comments: age 26 No Known Problems Sister Comments: half-sister Crohn's disease Daughter Comments: perforated bowel Family Status - Relation Status Age at Mother Father Sister Daughter Normal [facility] CBC WITH AUTO DIFFERENTIALon 05-23-2024 Basophils (Bld) [#/Vol] 0.06 10*3/uL Normal 0.00-0.20 [facility] Comment on above: Performed By: #### L [id number] #### [facility] (BEAKER) [address] [place] [address] Basophils/100 WBC (Bld) 0.5 % Normal 0.0-1.0 [facility] Comment on above: Performed By: #### L [id number] #### [facility] (BEAKER) [address] [place] [address] Eosinophils (Bld) [#/Vol] 0.36 10*3/uL Normal 0.00-0.50 [facility] Comment on above: Performed By: #### L [id number] #### [facility] ([facility] [address] [place] [address] Eosinophils/100 WBC (Bld) 3.1 % Normal 0.0-6.0 [facility] Comment on above: Performed By: #### L [id number] #### [facility] ([facility]) [address] [place] [address] Erythrocyte distribution width (RBC) [Ratio] 13.7 % Normal 11.5-15.0 [facility] Comment on above: Performed By: #### L [id number] #### [facility] ([facility]) [address] [place] [address] ERYTHROCYTE MEAN CORPUSCULAR HEMOGLOBIN CONCENTRATION (G/DL) BY AUTOMATED 32.4 g/dL Normal 32.0-35.0 [facility] Comment on above: Performed By: #### L [id number] #### [facility] ([facility]) [address] [place] [address] Hematocrit (Bld) [Volume fraction] 41.7 % Normal 39.0-55.0 [facility] Comment on above: Performed By: #### L [id number] #### [facility] ([facility]) [address] [place] [address] Hemoglobin (Bld) [Mass/Vol] 13.5 g/dL Normal 13.0-17.0 [facility] Comment on above: Performed By: #### L [id number] #### [facility] ([facility]) [address] [place] [address] Immature granulocytes (Bld) [#/Vol] 0.13 10*3/uL Normal 0.00-0.20 [facility] Comment on above: Performed By: #### L [id number] #### [facility] (BEAK[facility]) [address] [place] [address] Immature granulocytes/100 WBC (Bld) 1.1 % High 0.0-1.0 [facility] Comment on above: Performed By: #### L [id number] #### [facility] ([facility]) [address] [place] [address] Lymphocytes (Bld) [#/Vol] 1.92 10*3/uL Normal 1.20-4.00 [facility] Comment on above: Performed By: #### L [id number] #### [facility] ([facility]) [address] [place] [address] Lymphocytes/100 WBC (Bld) 16.7 % Low 20.0-45.0 [facility] Comment on above: Performed By: #### L [id number] #### [facility] ([facility]) [address] [place] [address] MCH (RBC) [Entitic mass] 30.1 pg Normal 27.0-33.0 [facility] Comment on above: Performed By: #### L [id number] #### [facility] ([facility]) [address] [place] [address] MCV (RBC) [Entitic vol] 93.1 fL Normal 82.0-98.0 [facility] Comment on above: Performed By: #### L [id number] #### [facility] ([facility]) [address] [place] [address] Monocytes (Bld) [#/Vol] 0.79 10*3/uL Normal 0.10-1.00 [facility] Comment on above: Performed By: #### L [id number] #### [facility] ([facility]) [address] [place] [address] Monocytes/100 WBC (Bld) 6.9 % Normal 5.0-12.0 [facility] Comment on above: Performed By: #### L [id number] #### [facility] ([facility]) [address] [place] [address] Neutrophils (Bld) [#/Vol] 8.25 10*3/uL High 1.60-7.60 [facility] Comment on above: Performed By: #### L [id number] #### [facility] ([facility]) [address] [place] [address] Neutrophils/100 WBC (Bld) 71.7 % Normal 40.0-72.0 [facility] Comment on above: Performed By: #### L [id number] #### [facility] ([facility]) [address] [place] [address] NRBC (PER 100 WBCS) BY AUTOMATED COUNT 0.0 % Normal 0 [facility] Comment on above: Performed By: #### L [id number] #### [facility] ([facility]) [address] [place] [address] PLATELETS (10*3/UL) IN BLOOD AUTOMATED COUNT 332 10*3/uL Normal 150-400 [facility] Comment on above: Performed By: #### L [id number] #### [facility] ([facility]) [address] [place] [address] RBC (Bld) [#/Vol] 4.48 10*6/uL Normal 4.20-5.70 [facility] Comment on above: Performed By: #### L [id number] #### [facility] ([facility]) [address] [place] [address] WBC (Bld) [#/Vol] 11.51 10*3/uL High 4.00-10.60 [facility] Comment on above: Performed By: #### L [id number] #### [facility] ([facility]) [address] [place] [address] COMPREHENSIVE METABOLIC PANE Nick 05-23-2024 Albumin [Mass/Vol] 4.5 g/dL Normal 3.5-5.7 [facility] Comment on above: Performed By: #### L [id number] ####[facility] ([facility])[address] [place] [address] ALP [Catalytic activity/Vol] 123 U/L High 34-104 [facility] Comment on above: Performed By: #### L [id number] ####[facility] ([facility])[address] [place] [address] ALT [Catalytic activity/Vol] 25 U/L Normal 7-52 [facility] Comment on above: Performed By: #### L [id number] ####[facility] ([facility])[address] [place] [address] Anion gap [Moles/Vol] 15 mmol/L Normal 7-20 [facility] Comment on above: Performed By: #### L [id number] ####[facility] ([facility])[address] [place] [address] AST [Catalytic activity/Vol] 15 U/L Normal 13-39 [facility] Comment on above: Performed By: #### L [id number] ####[facility] ([facility])[address] [place] [address] Bilirubin [Mass/Vol] 0.6 mg/dL Normal 0.3-1.0 [facility] Comment on above: Performed By: #### L [id number] ####[facility] ([facility])[address] [place] [address] Calcium [Mass/Vol] 9.6 mg/dL Normal 8.6-10.3 [facility] Comment on above: Performed By: #### L [id number] ####[facility] ([facility])[address] [place] [address] Chloride [Moles/Vol] 98 mmol/L Normal 98-107 [facility] Comment on above: Performed By: #### L [id number] ####[facility] ([facility])[address] [place] [address] CO2 [Moles/Vol] 30 mmol/L Normal 21-31 [facility] Comment on above: Performed By: #### L [id number] ####[facility] ([facility])[address] [place] [address] Creatinine [Mass/Vol] 6.78 mg/dL High 0.70-1.30 [facility] Comment on above: Performed By: #### L [id number] ####[facility] ([facility])[address] [place] [address] GLOMERULAR FILTRATION RATE ML/MIN/1.73 SQ M.PREDICTED 9.1 mL/min/1.73m*2 Low >60.0 [facility] Comment on above: Result Comment: [facility]???s estimated glomerular filtration rate (eGFR) will [...] of individuals. Performed By: #### L [id number] ####[facility] ([facility])[address] [place] [address] Glucose [Mass/Vol] 161 mg/dL High 70-100 [facility] Comment on above: Performed By: #### L [id number] ####[facility] ([facility])[address] [place] [address] Potassium [Moles/Vol] 4.0 mmol/L Normal 3.5-5.1 [facility] Comment on above: Performed By: #### L [id number] ####[facility] ([facility])[address] [place] [address] Protein [Mass/Vol] 8.0 g/dL Normal 6.0-8.3 [facility] Comment on above: Performed By: #### L [id number] ####[facility] ([facility])[address] [place] [address] Sodium [Moles/Vol] 139 mmol/L Normal 136-145 [facility] Comment on above: Performed By: #### L [id number] ####[facility] ([facility])[address] [place] [address] Urea nitrogen [Mass/Vol] 41 mg/dL High 7-25 [facility] Comment on above: Performed By: #### L [id number] ####[facility] (BEAKER)[address] [place] [address] UREA NITROGEN/CREATININE (MASS RATIO) IN SER/PLAS 6.0 Normal [facility] Comment on above: Performed By: #### L [id number] ####[facility] ([facility]AKER)[address] [place] [address] ESTRADIOLon 05-23-2024 ESTRADIOL (PG/ML) IN SER/PLAS 5.0 pg/mL Low 27-52 [facility] Comment on above: Result Comment: FEMALES: Normally menstruating Luteal phase 60-232 Follicular phase 31-90 Midcycle phase 60-533 Postmenopausal (untreated) <138 Fulvestrant treatment will show an increased estradiol concentration with this methodology. Alternate methodologies are available upon request. Test Performed by [facility] [address] [place] [address] - Released 05/23/2024 12:54 Performed By: #### L [id number] ####[employer] [id number] [place] [address] Labon 05-23-2024 Lab [id number] [employer] 1970 M Date Provider Department Center 05/23/2024 2244-[facility] MP LAB RESOURCE MP DRAW Medical [facility] Family History Problem Relation Age of Onset Breast cancer Mother Comments: age 53 Heart disease Father Heart attack Father Comments: age 26 No Known Problems Sister Comments: half-sister Crohn's disease Daughter Comments: perforated bowel Family Status - Relation Status Age at Mother Father Sister Daughter Normal [facility] PSA, SCREENINGon 05-23-2024 PROSTATE SPECIFIC AG (NG/ML) IN SER/PLAS 2.3 ng/mL Normal 0.4-4 [facility] Comment on above: Performed By: #### L [id number] ####[facility] (BEAKER)[address] [place] [address] TESTOSTERONEon 05-23-2024 TESTOSTERONE (NG/DL) IN SER/PLAS 373 ng/dL Normal 193-740 [facility] Comment on above: Result Comment: Test Performed by [facility] [address], [place] [id number] - Released 05/23/2024 12:54 Performed By: #### L [id number] #### [facility] (BEAKER) [address] [place] [address] Glucose Glucometer (BldC) [M ass/Vol]Ordered By: Gi Mondragon on 12-24-2023 Glucose [Mass/Vol] 207 mg/dL [facility] Comment on above: Random Glucose Refer ence Range is dependent on time and content of last meal. Glucose of more than 200 mg/dL in a nonstressed, ambulatory subject supports the diagnosis of Diabetes Mellitus. No Panel InformationOrdered By: Gi Mondragon on 12-24-2023 Bedside Glucose Comment Glu2: cleaned meter [facility] Basophils Auto (Bld) [#/Vol] Ordered By: Buddy Murguia on 11-23-2023 Basophils (Bld) [#/Vol] 0.1 10*3/uL 0.0-0.2 [facility] Basophils/100 WBC Auto (Bld) Ordered By: Buddy Murguia on 11-23-2023 Basophils/100 WBC (Bld) 0.7 % . [facility] Calcium [Mass/volume] in Ser um or PlasmaOrdered By: Buddy Murguia on 11-23-2023 Calcium [Mass/Vol] 9.3 mg/dL 8.6-10.3 [facility] Carbon dioxide, total [Moles /volume] in Serum or PlasmaOrdered By: Buddy Murguia on 11-23-2023 CO2 [Moles/Vol] 25.0 mmol/L 21.0-31.0 [facility] Chloride [Moles/volume] in S james or PlasmaOrdered By: Buddy Murguia on 11-23-2023 Chloride [Moles/Vol] 102 mmol/L 98-107 [facility] Creatinine [Mass/volume] in Serum or PlasmaOrdered By: Buddy Murguia on 11-23-2023 Creatinine [Mass/Vol] 10.07 mg/dL 0.70-1.30 [facility] Comment on above: Delta: 9.33 on 11/21 Eosinophils Auto (Bld) [#/Vo l]Ordered By: Buddy Murguia on 11-23-2023 Eosinophils (Bld) [#/Vol] 0.4 10*3/uL 0.0-0.45 [facility] Eosinophils/100 WBC Auto (Bl d)Ordered By: Buddy Murguia on 11-23-2023 Eosinophils/100 WBC (Bld) 5.6 % . [facility] Erythrocyte distribution wid th Auto (RBC) [Ratio]Ordered By: Buddy Murguia on 11-23-2023 Erythrocyte distribution width (RBC) [Ratio] 15.7 % 12.0-14.8 [facility] Glucose Glucometer (BldC) [M ass/Vol]Ordered By: Amy Escudero on 11-23-2023 Glucose [Mass/Vol] 123 mg/dL [facility] Comment on above: Random Glucose Refer ence Range is dependent on time and content of last meal. Glucose of more than 200 mg/dL in a nonstressed, ambulatory subject supports the diagnosis of Diabetes Mellitus. Glucose [Mass/volume] in Ser um or PlasmaOrdered By: Buddy Murguia on 11-23-2023 Glucose [Mass/Vol] 94 mg/dL 70-100 [facility] Comment on above: ADA recommended refe rence rangeRandom Glucose Reference Range is dependent on time and content of last meal. Glucose of more than 200 mg/dL in a nonstressed, ambulatory subject supports the diagnosis of Diabetes Mellitus. Hematocrit Auto (Bld) [Volum e fraction]Ordered By: Buddy Murguia on 11-23-2023 Hematocrit (Bld) [Volume fraction] 35.2 % 38.8-50.0 [facility] Hemoglobin [Mass/volume] in BloodOrdered By: Buddy Murguia on 11-23-2023 Hemoglobin (Bld) [Mass/Vol] 11.3 g/dL 13.0-17.0 [facility] Leukocytes [#/volume] correc scott for nucleated erythrocytes in Blood by Automated counOrdered By: Buddy Murguia on 11-23-2023 WBC corrected for nucl RBC Auto (Bld) [#/Vol] 7.7 10*3/uL 4.1-10.5 [facility] Lymphocytes Auto (Bld) [#/Vo l]Ordered By: Buddy Murguia on 11-23-2023 Lymphocytes (Bld) [#/Vol] 1.6 10*3/uL 1.00-4.8 [facility] Lymphocytes/100 WBC Auto (Bl d)Ordered By: Buddy Murguia on 11-23-2023 Lymphocytes/100 WBC (Bld) 20.6 % . [facility] MCH Auto (RBC) [Entitic mass ]Ordered By: Buddy Murguia on 11-23-2023 MCH (RBC) [Entitic mass] 30.4 pg 27.5-35.2 [facility] MCHC Auto (RBC) [Mass/Vol]Or dered By: Buddy Murguia on 11-23-2023 MCHC (RBC) [Mass/Vol] 32.2 g/dL 32.5-35.6 [facility] MCV Auto (RBC) [Entitic vol] Ordered By: Buddy Murguia on 11-23-2023 MCV (RBC) [Entitic vol] 94.5 fL 83.5-101 [facility] Magnesium [Mass/volume] in S james or PlasmaOrdered By: Buddy Murguia on 11-23-2023 Magnesium [Mass/Vol] 2.7 mg/dL 1.9-2.7 [facility] Monocytes Auto (Bld) [#/Vol] Ordered By: Buddy Murguia on 11-23-2023 Monocytes (Bld) [#/Vol] 0.8 10*3/uL 0.0-0.8 [facility] Monocytes/100 WBC Auto (Bld) Ordered By: Buddy Murguia on 11-23-2023 Monocytes/100 WBC (Bld) 9.8 % . [facility] Neutrophils Auto (Bld) [#/Vo l]Ordered By: Buddy Murguia on 11-23-2023 Neutrophils (Bld) [#/Vol] 4.9 10*3/uL 1.8-7.7 [facility] Neutrophils/100 WBC Auto (Bl d)Ordered By: Buddy Murguia on 11-23-2023 Neutrophils/100 WBC (Bld) 63.3 % . [facility] No Panel InformationOrdered By: Buddy Murguia on 11-23-2023 Estimated GFR (CKD-EPI) 5.666 mL/Min [facility] Creatinine Clearance (Chem 13.08 [facility] Nucleated erythrocytes [Pres ence] in Blood by Automated countOrdered By: Buddy Murguia on 11-23-2023 Nucleated RBC Auto Ql (Bld) 0.0 /100{WBC} 0-0.5 [facility] Platelet mean volume Auto (B ld) [Entitic vol]Ordered By: Buddy Murguia on 11-23-2023 Platelet mean volume (Bld) [Entitic vol] 8.3 fL 6.6-10.1 [facility] Platelets Auto (Bld) [#/Vol] Ordered By: Buddy Murguia on 11-23-2023 Platelets (Bld) [#/Vol] 248 10*3/uL 150-450 [facility] Potassium [Moles/volume] in Serum or PlasmaOrdered By: Buddy Murguia on 11-23-2023 Potassium [Moles/Vol] 4.5 mmol/L 3.5-5.1 [facility] RBC Auto (Bld) [#/Vol]Ordere d By: Buddy Murguia on 11-23-2023 RBC (Bld) [#/Vol] 3.73 10*6/uL 3.90-5.60 [facility] Serum or plasma anion gap de terminationOrdered By: Buddy Murguia on 11-23-2023 Anion gap [Moles/Vol] 16.5 mmol/L 6.0-15.0 [facility] Sodium [Moles/volume] in Ser um or PlasmaOrdered By: Buddy Murguia on 11-23-2023 Sodium [Moles/Vol] 139 mmol/L 136-145 [facility] Urea nitrogen [Mass/volume] in Serum or PlasmaOrdered By: Buddy Murguia on 11-23-2023 Urea nitrogen [Mass/Vol] 74 mg/dL 7-25 [facility] WBC Auto (Bld) [#/Vol]Ordere d By: Buddy Murguia on 11-23-2023 WBC (Bld) [#/Vol] 7.7 10*3/uL 4.1-10.5 [facility] Prealbumin [Mass/volume] in Serum or PlasmaOrdered By: Yasmin Winchester on 11-22-2023 Prealbumin [Mass/Vol] 28.9 mg/dL 17.0-34.0 [facility] Automated erythrocytes count in urine sediment (number/area)Ordered By: Chong Dixon on 11-21-2023 RBC Auto (Urine sed) [#/Area] 1-2 [HPF] 0-4 [facility] Automated leukocytes count i n urine sediment (number/area)Ordered By: Chong Dixon on 11-21-2023 WBC Auto (Urine sed) [#/Area] 20-49 [HPF] 0-4 [facility] Bilirubin Test strip Ql (U)O rdered By: Chong Dixon on 11-21-2023 Bilirubin Ql (U) Negative Negative [facility] Color Auto (U)Ordered By: Tavon Dixon on 11-21-2023 Color (U) Yellow Yellow [facility] Glucose mean value [Mass/vol ume] in Blood Estimated from glycated hemoglobinOrdered By: Buddy Murguia on 11-21-2023 Average glucose Estimated from glycated hemoglobin (Bld) [Mass/Vol] 114 mg/dL [facility] Hemoglobin A1c percentageOrd ered By: Buddy Murguia on 11-21-2023 HbA1c (Bld) [Mass fraction] 5.6 % 4.3-5.6 [facility] Comment on above: Increased risk for d iabetes: 5.7 - 6.4diabetes: >6.4glycemic control for adults with diabetes: <7.0 Ketones Auto test strip (U) [Mass/Vol]Ordered By: Chong Dixon on 11-21-2023 Ketones (U) [Mass/Vol] Trace Negative [facility] - UrinalysisOrder ed By: Chong Dixon on 11-21-2023 Hyaline casts LM Ql (Urine sed) 9-19 [LPF] 0-8 [facility] Nitrite Test strip Ql (U)Ord ered By: Chong Dixon on 11-21-2023 Nitrite Ql (U) Negative Negative [facility] Protein Auto test strip (U) [Mass/Vol]Ordered By: Chong Dixon on 11-21-2023 Protein (U) [Mass/Vol] 300 mg/dL [facility] Specific gravity Auto test s trip (U) [Rel density]Ordered By: Chong Dixon on 11-21-2023 Specific gravity (U) [Rel density] 1.021 1.001-1.030 [facility] Squamous epithelial cells de tection in urine sediment by light microscopyOrdered By: Chong Dixon on 11-21-2023 Epithelial cells.squamous LM Ql (Urine sed) 0-1 [HPF] 0-2 [facility] Urine bacteria detection by automated methodOrdered By: Chong Dixon on 11-21-2023 Bacteria Auto Ql (U) None seen None Seen [facility] Urine clarity by refractomet ry automatedOrdered By: Chong Dixon on 11-21-2023 Clarity Refractometry automated (U) Cloudy Clear [facility] Urine culture routineOrdered By: Chong Dixon on 11-21-2023 Bacteria identified Cx Nom (U) No Growth 2 Days [facility] Urine glucose measurement by automated test strip (mass/volume)Ordered By: Chong Dixon on 11-21-2023 Glucose Auto test strip (U) [Mass/Vol] Normal mg/dL Normal [facility] Urine hemoglobin detection b y automated test stripOrdered By: Chong Dixon on 11-21-2023 Hemoglobin Auto test strip Ql (U) 2+ Negative [facility] Urine leukocyte esterase det ection by automated test stripOrdered By: Chong Dixon on 11-21-2023 Leukocyte esterase Auto test strip Ql (U) 2+ Negative [facility] Urobilinogen Auto test strip (U) [Mass/Vol]Ordered By: Chong Dixon on 11-21-2023 Urobilinogen (U) [Mass/Vol] Normal mg/dL Normal [facility] Yeast detection in urine sed iment by light microscopyOrdered By: Chong Dixon on 11-21-2023 Yeast LM Ql (Urine sed) None seen [HPF] None Seen [facility] pH Auto test strip (U)Ordere d By: Chong Dixon on 11-21-2023 pH (U) 5.0 [pH] 5.0-9.0 [facility] Activated partial thrombopla stin time (aPTT) in platelet poor plasma by coagulation aOrdered By: Chong Dixon on 11-20-2023 aPTT Coag (PPP) [Time] 31.0 s 25.1-36.5 [facility] Comment on above: A hematocrit value g reater than 55% may lead to inaccurate results in coagulation testing. Patients having hematocrit values >55% require a special collection tube for coagulation studies. Please contact the laboratory at [phone] for redraw instructions. Alanine aminotransferase [En zymatic activity/volume] in Serum or PlasmaOrdered By: Chong Dixon on 11-20-2023 ALT [Catalytic activity/Vol] 25 U/L 7-52 [facility] Albumin [Mass/volume] in Ser um or Plasma by Bromocresol green (BCG) dye binding methoOrdered By: Chong Dixon on 11-20-2023 Albumin BCG dye [Mass/Vol] 4.4 g/dL 3.5-5.7 [facility] Alkaline phosphatase [Enzyma tic activity/volume] in Serum or PlasmaOrdered By: Chong Dixon on 11-20-2023 ALP [Catalytic activity/Vol] 51 U/L 34-104 [facility] Anisocytosis LM Ql (Bld)Orde red By: Chong Dixon on 11-20-2023 Anisocytosis Ql (Bld) Moderate [facility] Aspartate aminotransferase [ Enzymatic activity/volume] in Serum or PlasmaOrdered By: Chong Dixon on 11-20-2023 AST [Catalytic activity/Vol] 24 U/L 13-39 [facility] Bacterial blood cultureOrder ed By: Chong Dixon on 11-20-2023 Bacteria identified Cx Nom (Bld) NO GROWTH 5 DAYS [facility] Basophils Auto (Bld) [#/Vol] Ordered By: Chong Dixon on 11-20-2023 Basophils (Bld) [#/Vol] N/A [facility] Basophils/100 WBC Auto (Bld) Ordered By: Chong Dixon on 11-20-2023 Basophils/100 WBC (Bld) N/A [facility] Bilirubin.total [Mass/volume ] in Serum or PlasmaOrdered By: Chong Dixon on 11-20-2023 Bilirubin [Mass/Vol] 0.6 mg/dL 0.3-1.0 [facility] C reactive protein [Mass/vol ume] in Serum or PlasmaOrdered By: Chong Dixon on 11-20-2023 CRP [Mass/Vol] 3.9 mg/dL 0.0-0.5 [facility] COVID-19 Detected/Not Detect edOrdered By: Chong Dixon on 11-20-2023 SARS-CoV-2 (COVID-19) RNA SHAY+non-probe Ql (Nph) Not detected Not Detecte [facility] Comment on above: This is a duplicate RP2.1 COVID (PCR) result to be used for statistical tracking purpose only. Calcium [Mass/volume] in Ser um or PlasmaOrdered By: Chong Dixon on 11-20-2023 Calcium [Mass/Vol] 8.9 mg/dL 8.6-10.3 [facility] Carbon dioxide, total [Moles /volume] in Serum or PlasmaOrdered By: Chong Dixon on 11-20-2023 CO2 [Moles/Vol] 21.9 mmol/L 21.0-31.0 [facility] Chloride [Moles/volume] in S james or PlasmaOrdered By: Chong Dixon on 11-20-2023 Chloride [Moles/Vol] 103 mmol/L 98-107 [facility] Creatine kinase [Enzymatic a ctivity/volume] in Serum or PlasmaOrdered By: Chong Dixon on 11-20-2023 CK [Catalytic activity/Vol] 135 U/L 30-223 [facility] Creatinine [Mass/volume] in Serum or PlasmaOrdered By: Chong Dixon on 11-20-2023 Creatinine [Mass/Vol] 6.29 mg/dL 0.70-1.30 [facility] Eosinophils Auto (Bld) [#/Vo l]Ordered By: Chong Dixon on 11-20-2023 Eosinophils (Bld) [#/Vol] N/A [facility] Eosinophils/100 WBC Auto (Bl d)Ordered By: Chong Dixon on 11-20-2023 Eosinophils/100 WBC (Bld) N/A [facility] Erythrocyte distribution wid th Auto (RBC) [Ratio]Ordered By: Chong Dixon on 11-20-2023 Erythrocyte distribution width (RBC) [Ratio] 16.1 % 12.0-14.8 [facility] Erythrocyte sedimentation ra te by Photometric methodOrdered By: Chong Dixon on 11-20-2023 ESR Photometric method (Bld) [Velocity] 66 mm/hr 0-19 [facility] Globulin Calc (S) [Mass/Vol] Ordered By: Chong Dixon on 11-20-2023 Globulin (S) [Mass/Vol] 3.9 g/dL [facility] Glucose Glucometer (BldC) [M ass/Vol]Ordered By: Chong Dixon on 11-20-2023 Glucose [Mass/Vol] 111 mg/dL [facility] Comment on above: Random Glucose Refer ence Range is dependent on time and content of last meal. Glucose of more than 200 mg/dL in a nonstressed, ambulatory subject supports the diagnosis of Diabetes Mellitus. Glucose [Mass/volume] in Ser um or PlasmaOrdered By: Chong Dixon on 11-20-2023 Glucose [Mass/Vol] 121 mg/dL 70-100 [facility] Comment on above: ADA recommended refe rence rangeRandom Glucose Reference Range is dependent on time and content of last meal. Glucose of more than 200 mg/dL in a nonstressed, ambulatory subject supports the diagnosis of Diabetes Mellitus. Hematocrit Auto (Bld) [Volum e fraction]Ordered By: Chong Dixon on 11-20-2023 Hematocrit (Bld) [Volume fraction] 38.8 % 38.8-50.0 [facility] Hemoglobin [Mass/volume] in BloodOrdered By: Chong Dixon on 11-20-2023 Hemoglobin (Bld) [Mass/Vol] 12.5 g/dL 13.0-17.0 [facility] INR in Platelet poor plasma by Coagulation assayOrdered By: Chong Dixon on 11-20-2023 INR Coag (PPP) [Relative time] 1.1 {INR} [facility] Comment on above: INR Therapeutic [...] on 11-20-2023 Lactate [Moles/Vol] 1.7 mmol/L 0.5-2.2 [facility] Leukocytes [#/volume] correc scott for nucleated erythrocytes in Blood by Automated counOrdered By: Chong Dixon on 11-20-2023 WBC corrected for nucl RBC Auto (Bld) [#/Vol] 19.5 10*3/uL 4.1-10.5 [facility] Lymphocytes Auto (Bld) [#/Vo l]Ordered By: Chong Dixon on 11-20-2023 Lymphocytes (Bld) [#/Vol] N/A [facility] Lymphocytes/100 WBC Auto (Bl d)Ordered By: Chong Dixon on 11-20-2023 Lymphocytes/100 WBC (Bld) N/A [facility] Lymphocytes/100 WBC Manual c nt (Bld)Ordered By: Chong Dixon on 11-20-2023 Lymphocytes/100 WBC (Bld) 1 % 18-42 [facility] MCH Auto (RBC) [Entitic mass ]Ordered By: Chong Dixon on 11-20-2023 MCH (RBC) [Entitic mass] 30.2 pg 27.5-35.2 [facility] MCHC Auto (RBC) [Mass/Vol]Or dered By: Chong Dixon on 11-20-2023 MCHC (RBC) [Mass/Vol] 32.2 g/dL 32.5-35.6 [facility] MCV Auto (RBC) [Entitic vol] Ordered By: Chong Dixon on 11-20-2023 MCV (RBC) [Entitic vol] 94.0 fL 83.5-101 [facility] Magnesium [Mass/volume] in S james or PlasmaOrdered By: Chong Dixon on 11-20-2023 Magnesium [Mass/Vol] 1.6 mg/dL 1.9-2.7 [facility] Microcytes LM Ql (Bld)Ordere d By: Chong Dixon on 11-20-2023 Microcytes Ql (Bld) Slight [facility] Monocyte distribution width [Entitic volume] in Blood by AutomatedOrdered By: Chong Dixon on 11-20-2023 Monocyte distribution width Auto (Bld) [Entitic vol] 25.63 % 0.00-20.00 [facility] Comment on above: The predictive value of MDW for identifying sepsis in patients with hematological abnormalities has not been established Monocytes Auto (Bld) [#/Vol] Ordered By: Chong Dixon on 11-20-2023 Monocytes (Bld) [#/Vol] N/A [facility] Monocytes/100 WBC Auto (Bld) Ordered By: Chong Dixon on 11-20-2023 Monocytes/100 WBC (Bld) N/A [facility] Monocytes/100 WBC Manual cnt (Bld)Ordered By: Chong Dxion on 11-20-2023 Monocytes/100 WBC (Bld) 4 % 2-11 [facility] Natriuretic peptide B [Mass/ Vol]Ordered By: Chong Dixon on 11-20-2023 Natriuretic peptide B (Bld) [Mass/Vol] 15.0 pg/mL 5-100 [facility] Neutrophils Auto (Bld) [#/Vo l]Ordered By: Chong Dixon on 11-20-2023 Neutrophils (Bld) [#/Vol] N/A [facility] Neutrophils/100 WBC Auto (Bl d)Ordered By: Chong Dixon on 11-20-2023 Neutrophils/100 WBC (Bld) N/A [facility] No Panel InformationOrdered By: Chong Dixon on 11-20-2023 Estimated GFR (CKD-EPI) 9.967 mL/Min [facility] Creatinine Clearance (Chem 21.03 [facility] Nucleated erythrocytes [Pres ence] in Blood by Automated countOrdered By: Chong Dixon on 11-20-2023 Nucleated RBC Auto Ql (Bld) N/A [facility] Platelet adequacy [Presence] in Blood by Light microscopyOrdered By: Chong Dixon on 11-20-2023 Platelets LM Ql (Bld) Normal Normal [facility] Platelet mean volume Auto (B ld) [Entitic vol]Ordered By: Chong Dixon on 11-20-2023 Platelet mean volume (Bld) [Entitic vol] 8.0 fL 6.6-10.1 [facility] Platelet morphology finding [Identifier] in BloodOrdered By: Chong Dixon on 11-20-2023 Platelet morphology finding Nom (Bld) Normal Normal [facility] Platelets Auto (Bld) [#/Vol] Ordered By: Chong Dixon on 11-20-2023 Platelets (Bld) [#/Vol] 280 10*3/uL 150-450 [facility] Potassium [Moles/volume] in Serum or PlasmaOrdered By: Chong Dixon on 11-20-2023 Potassium [Moles/Vol] 4.2 mmol/L 3.5-5.1 [facility] Protein [Mass/volume] in Ser um or PlasmaOrdered By: Chong Dixon on 11-20-2023 Protein [Mass/Vol] 8.3 g/dL 6.4-8.9 [facility] Prothrombin time (PT)Ordered By: Chong Dixon on 11-20-2023 PT Coag (PPP) [Time] 12.8 s 9.0-12.9 [facility] Comment on above: A hematocrit value g reater than 55% may lead to inaccurate results in coagulation testing. Patients having hematocrit values >55% require a special collection tube for coagulation studies. Please contact the laboratory at [phone] for redraw instructions. RBC Auto (Bld) [#/Vol]Ordere d By: Chong Dixon on 11-20-2023 RBC (Bld) [#/Vol] 4.12 10*6/uL 3.90-5.60 [facility] RBC morphologyOrdered By: Tavon Dixon on 11-20-2023 RBC morphology finding Nom (Bld) N/A [facility] Red blood cell stomatocyte d etectionOrdered By: Chong Dixon on 11-20-2023 Stomatocytes LM Ql (Bld) Slight [facility] Respiratory pathogens DNA an d RNA panel - Nasopharynx by SHAY with non-probe detectionOrdered By: Chong Dixon on 11-20-2023 Respiratory pathogens DNA and RNA panel SHAY+non-probe (Nph) [facility] Segmented neutrophils/100 WB C Manual cnt (Bld)Ordered By: Chong Dixon on 11-20-2023 Segmented neutrophils/100 WBC (Bld) 94 % 50-70 [facility] Serum or plasma albumin/glob ulin mass ratioOrdered By: Chong Dixon on 11-20-2023 Albumin/Globulin [Mass ratio] 1.1 {ratio} [facility] Serum or plasma anion gap de terminationOrdered By: Chong Dixon on 11-20-2023 Anion gap [Moles/Vol] 17.3 mmol/L 6.0-15.0 [facility] Sodium [Moles/volume] in Ser um or PlasmaOrdered By: Chong Dixon on 11-20-2023 Sodium [Moles/Vol] 138 mmol/L 136-145 [facility] Thyrotropin [Units/volume] i n Serum or PlasmaOrdered By: Chong Dixon on 11-20-2023 TSH Qn 1.36 m[IU]/L 0.45-5.33 [facility] Troponin I.cardiac [Mass/vol ume] in Serum or Plasma by Detection limit <= 0.01 ng/Ordered By: Chong Dixon on 11-20-2023 Troponin I.cardiac DL <= 0.01 ng/mL [Mass/Vol] 15.2 pg/mL 0.0-20.0 [facility] Urea nitrogen [Mass/volume] in Serum or PlasmaOrdered By: Chong Dixon on 11-20-2023 Urea nitrogen [Mass/Vol] 32 mg/dL 7-25 [facility] Variant lymphocytes/100 WBC Manual cnt (Bld)Ordered By: Chong Dixon on 11-20-2023 Variant lymphocytes/100 WBC (Bld) 1 % 0-12 [facility] WBC Auto (Bld) [#/Vol]Ordere d By: Chong Dixon on 11-20-2023 WBC (Bld) [#/Vol] 19.5 10*3/uL 4.1-10.5 [facility] Glucose Glucometer (BldC) [M ass/Vol]Ordered By: Flakito High on 10-27-2023 Glucose [Mass/Vol] 106 mg/dL [facility] Comment on above: Random Glucose Refer ence Range is dependent on time and content of last meal. Glucose of more than 200 mg/dL in a nonstressed, ambulatory subject supports the diagnosis of Diabetes Mellitus. Hematocrit Auto (Bld) [Volum e fraction]Ordered By: Alec Gardner on 10-27-2023 Hematocrit (Bld) [Volume fraction] 31.6 % 38.8-50.0 [facility] Hemoglobin [Mass/volume] in BloodOrdered By: Alec Gardner on 10-27-2023 Hemoglobin (Bld) [Mass/Vol] 10.3 g/dL 13.0-17.0 [facility] No Panel InformationOrdered By: Flakito High on 10-27-2023 Bedside Glucose Comment Glu2: cleaned meter [facility] Potassium [Moles/volume] in Serum or PlasmaOrdered By: Alec Gardner on 10-27-2023 Potassium [Moles/Vol] 4.5 mmol/L 3.5-5.1 [facility] Basic metabolic 1998 panelon 10-18-2023 Anion gap [Moles/Vol] 19.8 mmol/L High 6.0 - 15.0 [facility] Calcium [Mass/Vol] 9.2 mg/dL 8.6 - 10. 3 mg/dL [facility] Chloride [Moles/Vol] 103 mmol/L 98 - 10 7 mmol/L [facility] CO2 [Moles/Vol] 22.6 mmol/L 21.0 - 31.0 mmol/L [facility] Creatinine (U) [Mass/Vol] 9.63 mg/dL High 0.70 - 1.30 mg/dL [facility] GFR/1.73 sq M.predicted MDRD (S/P/Bld) [Vol rate/Area] 5.979 mL/min/{1.73_m2} [facility] Glucose [Mass/Vol] 105 mg/dL High 70 - 100 mg/dL [facility] Comment on above: Random Glucose Refer ence Range is dependent on time and content of last meal. Glucose of more than 200 mg/dL in a nonstressed, ambulatory subject supports the diagnosis of Diabetes Mellitus. ADA recommended reference range Interpretation and review of laboratory results Abnormal [facility] Potassium [Moles/Vol] 4.4 mmol/L 3.5 - 5.1 mmol/L [facility] Sodium [Moles/Vol] 141 mmol/L 136 - 145 mmol/L [facility] Urea nitrogen [Mass/Vol] 67 mg/dL High 7 - 25 mg/dL [facility] Basophils Auto (Bld) [#/Vol] Ordered By: Flakito High on 10-18-2023 Basophils (Bld) [#/Vol] 0.1 10*3/uL 0.0-0.2 [facility] Basophils/100 WBC Auto (Bld) Ordered By: Flakito High on 10-18-2023 Basophils/100 WBC (Bld) 0.9 % . [facility] Calcium [Mass/volume] in Ser um or PlasmaOrdered By: Flakito High on 10-18-2023 Calcium [Mass/Vol] 9.2 mg/dL 8.6-10.3 [facility] Carbon dioxide, total [Moles /volume] in Serum or PlasmaOrdered By: Flakito High on 10-18-2023 CO2 [Moles/Vol] 22.6 mmol/L 21.0-31.0 [facility] Chloride [Moles/volume] in S james or PlasmaOrdered By: Flakito High on 10-18-2023 Chloride [Moles/Vol] 103 mmol/L 98-107 [facility] Creatinine [Mass/volume] in Serum or PlasmaOrdered By: Flakito High on 10-18-2023 Creatinine [Mass/Vol] 9.63 mg/dL 0.70-1.30 [facility] Eosinophils Auto (Bld) [#/Vo l]Ordered By: Flakito High on 10-18-2023 Eosinophils (Bld) [#/Vol] 0.5 10*3/uL 0.0-0.45 [facility] Eosinophils/100 WBC Auto (Bl d)Ordered By: Flakito High on 10-18-2023 Eosinophils/100 WBC (Bld) 4.2 % . [facility] Erythrocyte distribution wid th Auto (RBC) [Ratio]Ordered By: Flakito High on 10-18-2023 Erythrocyte distribution width (RBC) [Ratio] 15.5 % 12.0-14.8 [facility] Glucose [Mass/volume] in Ser um or PlasmaOrdered By: Flakito High on 10-18-2023 Glucose [Mass/Vol] 105 mg/dL 70-100 [facility] Comment on above: ADA recommended refe rence rangeRandom Glucose Reference Range is dependent on time and content of last meal. Glucose of more than 200 mg/dL in a nonstressed, ambulatory subject supports the diagnosis of Diabetes Mellitus. Hematocrit Auto (Bld) [Volum e fraction]Ordered By: Flakito High on 10-18-2023 Hematocrit (Bld) [Volume fraction] 32.0 % 38.8-50.0 [facility] Hemoglobin [Mass/volume] in BloodOrdered By: Flakito High on 10-18-2023 Hemoglobin (Bld) [Mass/Vol] 10.6 g/dL 13.0-17.0 [facility] Leukocytes [#/volume] correc scott for nucleated erythrocytes in Blood by Automated counOrdered By: Flakito High on 10-18-2023 WBC corrected for nucl RBC Auto (Bld) [#/Vol] 10.8 10*3/uL 4.1-10.5 [facility] Lymphocytes Auto (Bld) [#/Vo l]Ordered By: Flakito High on 10-18-2023 Lymphocytes (Bld) [#/Vol] 1.4 10*3/uL 1.00-4.8 [facility] Lymphocytes/100 WBC Auto (Bl d)Ordered By: Flakito High on 10-18-2023 Lymphocytes/100 WBC (Bld) 12.5 % . [facility] MCH Auto (RBC) [Entitic mass ]Ordered By: Flakito High on 10-18-2023 MCH (RBC) [Entitic mass] 31.2 pg 27.5-35.2 [facility] MCHC Auto (RBC) [Mass/Vol]Or dered By: Flakito High on 10-18-2023 MCHC (RBC) [Mass/Vol] 33.2 g/dL 32.5-35.6 [facility] MCV Auto (RBC) [Entitic vol] Ordered By: Flakito Hgih on 10-18-2023 MCV (RBC) [Entitic vol] 93.8 fL 83.5-101 [facility] Monocytes Auto (Bld) [#/Vol] Ordered By: Flakito High on 10-18-2023 Monocytes (Bld) [#/Vol] 0.8 10*3/uL 0.0-0.8 [facility] Monocytes/100 WBC Auto (Bld) Ordered By: Flakito High on 10-18-2023 Monocytes/100 WBC (Bld) 7.8 % . [facility] Neutrophils Auto (Bld) [#/Vo l]Ordered By: Flakito High on 10-18-2023 Neutrophils (Bld) [#/Vol] 8.1 10*3/uL 1.8-7.7 [facility] Neutrophils/100 WBC Auto (Bl d)Ordered By: Flakito High on 10-18-2023 Neutrophils/100 WBC (Bld) 74.6 % . [facility] No Panel InformationOrdered By: Flakito High on 10-18-2023 Estimated GFR (CKD-EPI) 5.979 mL/Min [facility] Creatinine Clearance (Chem N/A [facility] Nucleated erythrocytes [Pres ence] in Blood by Automated countOrdered By: Flakito High on 10-18-2023 Nucleated RBC Auto Ql (Bld) 0.1 /100{WBC} 0-0.5 [facility] Platelet mean volume Auto (B ld) [Entitic vol]Ordered By: Flakito High on 10-18-2023 Platelet mean volume (Bld) [Entitic vol] 7.4 fL 6.6-10.1 [facility] Platelets Auto (Bld) [#/Vol] Ordered By: Flakito High on 10-18-2023 Platelets (Bld) [#/Vol] 391 10*3/uL 150-450 [facility] Potassium [Moles/volume] in Serum or PlasmaOrdered By: Flakito High on 10-18-2023 Potassium [Moles/Vol] 4.4 mmol/L 3.5-5.1 [facility] RBC Auto (Bld) [#/Vol]Ordere d By: Flakito High on 10-18-2023 RBC (Bld) [#/Vol] 3.41 10*6/uL 3.90-5.60 [facility] Serum or plasma anion gap de terminationOrdered By: Flakito High on 10-18-2023 Anion gap [Moles/Vol] 19.8 mmol/L 6.0-15.0 [facility] Sodium [Moles/volume] in Ser um or PlasmaOrdered By: Flakito High on 10-18-2023 Sodium [Moles/Vol] 141 mmol/L 136-145 [facility] Urea nitrogen [Mass/volume] in Serum or PlasmaOrdered By: Flakito High on 10-18-2023 Urea nitrogen [Mass/Vol] 67 mg/dL 7-25 [facility] WBC Auto (Bld) [#/Vol]Ordere d By: Flakito High on 10-18-2023 WBC (Bld) [#/Vol] 10.8 10*3/uL 4.1-10.5 [facility] Alanine aminotransferase [En zymatic activity/volume] in Serum or PlasmaOrdered By: Chintan Sweet on 09-25-2023 ALT [Catalytic activity/Vol] 22 U/L 7-52 [facility] Albumin [Mass/volume] in Ser um or Plasma by Bromocresol green (BCG) dye binding methoOrdered By: Chintan Sweet on 09-25-2023 Albumin BCG dye [Mass/Vol] 4.1 g/dL 3.5-5.7 [facility] Alkaline phosphatase [Enzyma tic activity/volume] in Serum or PlasmaOrdered By: Chintan Sweet on 09-25-2023 ALP [Catalytic activity/Vol] 40 U/L 34-104 [facility] Aspartate aminotransferase [ Enzymatic activity/volume] in Serum or PlasmaOrdered By: Chintan Sweet on 09-25-2023 AST [Catalytic activity/Vol] 22 U/L 13-39 [facility] Basophils Auto (Bld) [#/Vol] Ordered By: Chintan Sweet on 09-25-2023 Basophils (Bld) [#/Vol] 0.1 10*3/uL 0.0-0.2 [facility] Basophils/100 WBC Auto (Bld) Ordered By: Chintan Sweet on 09-25-2023 Basophils/100 WBC (Bld) 1.1 % . [facility] Bilirubin.total [Mass/volume ] in Serum or PlasmaOrdered By: Chintan Sweet on 09-25-2023 Bilirubin [Mass/Vol] 0.3 mg/dL 0.3-1.0 [facility] COVID CepheidOrdered By: Joyce Sweet on 09-25-2023 SARS-CoV-2 (COVID-19) Ab IA Ql Negative Negative [facility] Comment on above: This is a duplicate [employer] Xpert Xpress CoV-2/Flu/RSV Plus RNA by RT-PCR result to be used for statistical tracking purpose only. SARS-CoV-2 (COVID-19) RNA SHAY+probe Ql (Unsp spec) [facility] SARS-CoV-2 (COVID-19) RNA SHAY+probe Ql (Unsp spec) [facility] Calcium [Mass/volume] in Ser um or PlasmaOrdered By: Chintan Sweet on 09-25-2023 Calcium [Mass/Vol] 8.6 mg/dL 8.6-10.3 [facility] Carbon dioxide, total [Moles /volume] in Serum or PlasmaOrdered By: Chintan Sweet on 09-25-2023 CO2 [Moles/Vol] 22.6 mmol/L 21.0-31.0 [facility] Chloride [Moles/volume] in S james or PlasmaOrdered By: Chintan Sweet on 09-25-2023 Chloride [Moles/Vol] 102 mmol/L 98-107 [facility] Creatinine [Mass/volume] in Serum or PlasmaOrdered By: Chintan Sweet on 09-25-2023 Creatinine [Mass/Vol] 5.80 mg/dL 0.70-1.30 [facility] Eosinophils Auto (Bld) [#/Vo l]Ordered By: Chintan Sweet on 09-25-2023 Eosinophils (Bld) [#/Vol] 0.4 10*3/uL 0.0-0.45 [facility] Eosinophils/100 WBC Auto (Bl d)Ordered By: Chintan Sweet on 09-25-2023 Eosinophils/100 WBC (Bld) 3.4 % . [facility] Erythrocyte distribution wid th Auto (RBC) [Ratio]Ordered By: Chintan Sweet on 09-25-2023 Erythrocyte distribution width (RBC) [Ratio] 14.7 % 12.0-14.8 [facility] Globulin Calc (S) [Mass/Vol] Ordered By: Chintan Sweet on 09-25-2023 Globulin (S) [Mass/Vol] 3.7 g/dL [facility] Glucose [Mass/volume] in Ser um or PlasmaOrdered By: Chintan Sweet on 09-25-2023 Glucose [Mass/Vol] 129 mg/dL 70-100 [facility] Comment on above: ADA recommended refe rence rangeRandom Glucose Reference Range is dependent on time and content of last meal. Glucose of more than 200 mg/dL in a nonstressed, ambulatory subject supports the diagnosis of Diabetes Mellitus. Hematocrit Auto (Bld) [Volum e fraction]Ordered By: Chintan Sweet on 09-25-2023 Hematocrit (Bld) [Volume fraction] 28.0 % 38.8-50.0 [facility] Hemoglobin [Mass/volume] in BloodOrdered By: Chintan Sweet on 09-25-2023 Hemoglobin (Bld) [Mass/Vol] 9.5 g/dL 13.0-17.0 [facility] Leukocytes [#/volume] correc scott for nucleated erythrocytes in Blood by Automated counOrdered By: Chintan Sweet on 09-25-2023 WBC corrected for nucl RBC Auto (Bld) [#/Vol] 11.7 10*3/uL 4.1-10.5 [facility] Lymphocytes Auto (Bld) [#/Vo l]Ordered By: Chintan Sweet on 09-25-2023 Lymphocytes (Bld) [#/Vol] 1.7 10*3/uL 1.00-4.8 [facility] Lymphocytes/100 WBC Auto (Bl d)Ordered By: Chintan Sweet on 09-25-2023 Lymphocytes/100 WBC (Bld) 14.2 % . [facility] MCH Auto (RBC) [Entitic mass ]Ordered By: Chintan Sweet on 09-25-2023 MCH (RBC) [Entitic mass] 31.2 pg 27.5-35.2 [facility] MCHC Auto (RBC) [Mass/Vol]Or dered By: Chitnan Sweet on 09-25-2023 MCHC (RBC) [Mass/Vol] 34.1 g/dL 32.5-35.6 [facility] MCV Auto (RBC) [Entitic vol] Ordered By: Chintan Sweet on 09-25-2023 MCV (RBC) [Entitic vol] 91.4 fL 83.5-101 [facility] Monocyte distribution width [Entitic volume] in Blood by AutomatedOrdered By: Chintan Sweet on 09-25-2023 Monocyte distribution width Auto (Bld) [Entitic vol] 21.57 % 0.00-20.00 [facility] Comment on above: For adults in ED, MD W > 20.0 may be associated with a higher risk of sepsis during the first 12 hrs of hospital admission Monocytes Auto (Bld) [#/Vol] Ordered By: Chintan Sweet on 09-25-2023 Monocytes (Bld) [#/Vol] 0.8 10*3/uL 0.0-0.8 [facility] Monocytes/100 WBC Auto (Bld) Ordered By: Chintan Sweet on 09-25-2023 Monocytes/100 WBC (Bld) 6.8 % . [facility] Natriuretic peptide B [Mass/ Vol]Ordered By: Chintan Sweet on 09-25-2023 Natriuretic peptide B (Bld) [Mass/Vol] 16.0 pg/mL 5-100 [facility] Neutrophils Auto (Bld) [#/Vo l]Ordered By: Chintan Sweet on 09-25-2023 Neutrophils (Bld) [#/Vol] 8.7 10*3/uL 1.8-7.7 [facility] Neutrophils/100 WBC Auto (Bl d)Ordered By: Chintan Sweet on 09-25-2023 Neutrophils/100 WBC (Bld) 74.5 % . [facility] No Panel InformationOrdered By: Chintan Sweet on 09-25-2023 Estimated GFR (CKD-EPI) 10.985 mL/Min [facility] Creatinine Clearance (Chem 23.13 [facility] Nucleated erythrocytes [Pres ence] in Blood by Automated countOrdered By: Chintan Sweet on 09-25-2023 Nucleated RBC Auto Ql (Bld) 0.1 /100{WBC} 0-0.5 [facility] Platelet mean volume Auto (B ld) [Entitic vol]Ordered By: Chintan Sweet on 09-25-2023 Platelet mean volume (Bld) [Entitic vol] 7.9 fL 6.6-10.1 [facility] Platelets Auto (Bld) [#/Vol] Ordered By: Chintan Sweet on 09-25-2023 Platelets (Bld) [#/Vol] 330 10*3/uL 150-450 [facility] Potassium [Moles/volume] in Serum or PlasmaOrdered By: Chintan Sweet on 09-25-2023 Potassium [Moles/Vol] 3.8 mmol/L 3.5-5.1 [facility] Protein [Mass/volume] in Ser um or PlasmaOrdered By: Chintan Sweet on 09-25-2023 Protein [Mass/Vol] 7.8 g/dL 6.4-8.9 [facility] RBC Auto (Bld) [#/Vol]Ordere d By: Chintan Sweet on 09-25-2023 RBC (Bld) [#/Vol] 3.06 10*6/uL 3.90-5.60 [facility] Serum or plasma albumin/glob ulin mass ratioOrdered By: Chintan Sweet on 09-25-2023 Albumin/Globulin [Mass ratio] 1.1 {ratio} [facility] Serum or plasma anion gap de terminationOrdered By: Chintan Sweet on 09-25-2023 Anion gap [Moles/Vol] 14.2 mmol/L 6.0-15.0 [facility] Sodium [Moles/volume] in Ser um or PlasmaOrdered By: Chintan Sweet on 09-25-2023 Sodium [Moles/Vol] 135 mmol/L 136-145 [facility] Troponin I.cardiac [Mass/vol ume] in Serum or Plasma by Detection limit <= 0.01 ng/Ordered By: Chintan Sweet on 09-25-2023 Troponin I.cardiac DL <= 0.01 ng/mL [Mass/Vol] 55.3 pg/mL 0.0-20.0 [facility] Comment on above: Critical Result : Ca lled to and read back by: JUDAH LOWRY at: 09/25/2023 23:49:03 by:CHARLIE Urea nitrogen [Mass/volume] in Serum or PlasmaOrdered By: Chintan Sweet on 09-25-2023 Urea nitrogen [Mass/Vol] 43 mg/dL 7-25 [facility] WBC Auto (Bld) [#/Vol]Ordere d By: Chintan Sweet on 09-25-2023 WBC (Bld) [#/Vol] 11.7 10*3/uL 4.1-10.5 [facility] Basophils Auto (Bld) [#/Vol] Ordered By: Moses Boateng on 09-16-2023 Basophils (Bld) [#/Vol] 0.0 10*3/uL 0.0-0.2 [facility] Basophils/100 WBC Auto (Bld) Ordered By: Moses Boateng on 09-16-2023 Basophils/100 WBC (Bld) 0.4 % . [facility] Calcium [Mass/volume] in Ser um or PlasmaOrdered By: Moses Boateng on 09-16-2023 Calcium [Mass/Vol] 8.2 mg/dL 8.6-10.3 [facility] Carbon dioxide, total [Moles /volume] in Serum or PlasmaOrdered By: Moses Boateng on 09-16-2023 CO2 [Moles/Vol] 23.5 mmol/L 21.0-31.0 [facility] Chloride [Moles/volume] in S james or PlasmaOrdered By: Moses Boateng on 09-16-2023 Chloride [Moles/Vol] 106 mmol/L 98-107 [facility] Creatinine [Mass/volume] in Serum or PlasmaOrdered By: Moses Boateng on 09-16-2023 Creatinine [Mass/Vol] 10.67 mg/dL 0.70-1.30 [facility] Eosinophils Auto (Bld) [#/Vo l]Ordered By: Moses Boateng on 09-16-2023 Eosinophils (Bld) [#/Vol] 0.4 10*3/uL 0.0-0.45 [facility] Eosinophils/100 WBC Auto (Bl d)Ordered By: Moses Boateng on 09-16-2023 Eosinophils/100 WBC (Bld) 3.5 % . [facility] Erythrocyte distribution wid th Auto (RBC) [Ratio]Ordered By: Moses Boateng on 09-16-2023 Erythrocyte distribution width (RBC) [Ratio] 14.9 % 12.0-14.8 [facility] Glucose Glucometer (BldC) [M ass/Vol]Ordered By: Ramirez Jean on 09-16-2023 Glucose [Mass/Vol] 103 mg/dL [facility] Comment on above: Random Glucose Refer ence Range is dependent on time and content of last meal. Glucose of more than 200 mg/dL in a nonstressed, ambulatory subject supports the diagnosis of Diabetes Mellitus. Glucose [Mass/volume] in Ser um or PlasmaOrdered By: Moses Boateng on 09-16-2023 Glucose [Mass/Vol] 93 mg/dL 70-100 [facility] Comment on above: ADA recommended refe rence rangeRandom Glucose Reference Range is dependent on time and content of last meal. Glucose of more than 200 mg/dL in a nonstressed, ambulatory subject supports the diagnosis of Diabetes Mellitus. Hematocrit Auto (Bld) [Volum e fraction]Ordered By: Moses Boateng on 09-16-2023 Hematocrit (Bld) [Volume fraction] 26.0 % 38.8-50.0 [facility] Hemoglobin [Mass/volume] in BloodOrdered By: Moses Boateng on 09-16-2023 Hemoglobin (Bld) [Mass/Vol] 8.7 g/dL 13.0-17.0 [facility] [facility] Leukocytes [#/volume] correc scott for nucleated erythrocytes in Blood by Automated counOrdered By: Moses Boateng on 09-16-2023 WBC corrected for nucl RBC Auto (Bld) [#/Vol] 11.3 10*3/uL 4.1-10.5 [facility] Lymphocytes Auto (Bld) [#/Vo l]Ordered By: Moses Boateng on 09-16-2023 Lymphocytes (Bld) [#/Vol] 1.7 10*3/uL 1.00-4.8 [facility] Lymphocytes/100 WBC Auto (Bl d)Ordered By: Moses Boateng on 09-16-2023 Lymphocytes/100 WBC (Bld) 14.7 % . [facility] MCH Auto (RBC) [Entitic mass ]Ordered By: Moses Boateng on 09-16-2023 MCH (RBC) [Entitic mass] 30.7 pg 27.5-35.2 [facility] MCHC Auto (RBC) [Mass/Vol]Or dered By: Moses Boateng on 09-16-2023 MCHC (RBC) [Mass/Vol] 33.4 g/dL 32.5-35.6 [facility] MCV Auto (RBC) [Entitic vol] Ordered By: Moses Boateng on 09-16-2023 MCV (RBC) [Entitic vol] 91.9 fL 83.5-101 [facility] Monocytes Auto (Bld) [#/Vol] Ordered By: Moses Boateng on 09-16-2023 Monocytes (Bld) [#/Vol] 0.8 10*3/uL 0.0-0.8 [facility] Monocytes/100 WBC Auto (Bld) Ordered By: Moses Boateng on 09-16-2023 Monocytes/100 WBC (Bld) 7.3 % . [facility] Neutrophils Auto (Bld) [#/Vo l]Ordered By: Moses Boateng on 09-16-2023 Neutrophils (Bld) [#/Vol] 8.4 10*3/uL 1.8-7.7 [facility] Neutrophils/100 WBC Auto (Bl d)Ordered By: Moses Boateng on 09-16-2023 Neutrophils/100 WBC (Bld) 74.1 % . [facility] No Panel InformationOrdered By: Moses Boateng on 09-16-2023 Estimated GFR (CKD-EPI) 5.286 mL/Min [facility] Creatinine Clearance (Chem 12.72 [facility] Nucleated erythrocytes [Pres ence] in Blood by Automated countOrdered By: Moses Boateng on 09-16-2023 Nucleated RBC Auto Ql (Bld) 0.0 /100{WBC} 0-0.5 [facility] Platelet mean volume Auto (B ld) [Entitic vol]Ordered By: Moses Boateng on 09-16-2023 Platelet mean volume (Bld) [Entitic vol] 8.0 fL 6.6-10.1 [facility] Platelets Auto (Bld) [#/Vol] Ordered By: Moses Boateng on 09-16-2023 Platelets (Bld) [#/Vol] 247 10*3/uL 150-450 [facility] Potassium [Moles/volume] in Serum or PlasmaOrdered By: Moses Boateng on 09-16-2023 Potassium [Moles/Vol] 4.3 mmol/L 3.5-5.1 [facility] RBC Auto (Bld) [#/Vol]Ordere d By: Moses Boateng on 09-16-2023 RBC (Bld) [#/Vol] 2.83 10*6/uL 3.90-5.60 [facility] Serum or plasma anion gap de terminationOrdered By: Moses Boateng on 09-16-2023 Anion gap [Moles/Vol] 17.8 mmol/L 6.0-15.0 [facility] Sodium [Moles/volume] in Ser um or PlasmaOrdered By: Moses Boateng on 09-16-2023 Sodium [Moles/Vol] 143 mmol/L 136-145 [facility] Urea nitrogen [Mass/volume] in Serum or PlasmaOrdered By: Moses Boateng on 09-16-2023 Urea nitrogen [Mass/Vol] 110 mg/dL 7-25 [facility] WBC Auto (Bld) [#/Vol]Ordere d By: Moses Boateng on 09-16-2023 WBC (Bld) [#/Vol] 11.3 10*3/uL 4.1-10.5 [facility] Alanine aminotransferase [En zymatic activity/volume] in Serum or PlasmaOrdered By: Michelle Kennedy on 06-26-2023 ALT [Catalytic activity/Vol] 16 U/L 7-52 [facility] Albumin [Mass/volume] in Ser um or Plasma by Bromocresol green (BCG) dye binding methoOrdered By: Michelle Kennedy on 06-26-2023 Albumin BCG dye [Mass/Vol] 3.8 g/dL 3.5-5.7 [facility] Alkaline phosphatase [Enzyma tic activity/volume] in Serum or PlasmaOrdered By: Michelle Kennedy on 06-26-2023 ALP [Catalytic activity/Vol] 63 U/L 34-104 [facility] Aspartate aminotransferase [ Enzymatic activity/volume] in Serum or PlasmaOrdered By: Michelle Kennedy on 06-26-2023 AST [Catalytic activity/Vol] 11 U/L 13-39 [facility] Bilirubin.total [Mass/volume ] in Serum or PlasmaOrdered By: Michelle Kennedy on 06-26-2023 Bilirubin [Mass/Vol] 0.3 mg/dL 0.3-1.0 [facility] Calcium [Mass/volume] in Ser um or PlasmaOrdered By: Michelle Kennedy on 06-26-2023 Calcium [Mass/Vol] 8.4 mg/dL 8.6-10.3 [facility] Carbon dioxide, total [Moles /volume] in Serum or PlasmaOrdered By: Michelle Kennedy on 06-26-2023 CO2 [Moles/Vol] 24.9 mmol/L 21.0-31.0 [facility] Chloride [Moles/volume] in S james or PlasmaOrdered By: Michelle Kennedy on 06-26-2023 Chloride [Moles/Vol] 107 mmol/L 98-107 [facility] Cholesterol [Mass/volume] in Serum or PlasmaOrdered By: Michelle Kennedy on 06-26-2023 Cholesterol [Mass/Vol] 143 mg/dL 140-200 [facility] Comment on above: Chol less than 200 m g/dl low riskChol 201-239 mg/dl borderline riskChol 240 mg/dl and greater high risk Cholesterol in LDL Calc [Mas s/Vol]Ordered By: Michelle Kennedy on 06-26-2023 Cholesterol in LDL [Mass/Vol] 72 mg/dL 0-100 [facility] Comment on above: LDL ATP III CLASSIFI CATIONLDL less than 100 mg/dL OptimalLDL 100-129 mg/dL Near or above optimalLDL 130-159 mg/dL Borderline highLDL 160-189 mg/dL HighLDL greater than 189 mg/dL Very high Cholesterol in VLDL Calc [Ma ss/Vol]Ordered By: Michelle Kennedy on 06-26-2023 Cholesterol in VLDL [Mass/Vol] 40 mg/dL [facility] Creatinine [Mass/volume] in Serum or PlasmaOrdered By: Michelle Kennedy on 06-26-2023 Creatinine [Mass/Vol] 8.14 mg/dL 0.70-1.30 [facility] Globulin Calc (S) [Mass/Vol] Ordered By: Michelle Kennedy on 06-26-2023 Globulin (S) [Mass/Vol] 3.2 g/dL [facility] Glucose [Mass/volume] in Ser um or PlasmaOrdered By: Michelle Kennedy on 06-26-2023 Glucose [Mass/Vol] 117 mg/dL 70-100 [facility] Comment on above: ADA recommended refe rence rangeRandom Glucose Reference Range is dependent on time and content of last meal. Glucose of more than 200 mg/dL in a nonstressed, ambulatory subject supports the diagnosis of Diabetes Mellitus. No Panel InformationOrdered By: Michelle Kennedy on 06-26-2023 C-Peptide 3.3 ng/mL 1.1-4.4 [facility] Comment on above: C-Peptide reference interval is for fasting patients.Performed at: [facility] [id number] Director: Omar Frederick PhD, Phone: [phone] Estimated GFR (CKD-EPI) 7.315 mL/Min [facility] Creatinine Clearance (Chem N/A [facility] Potassium [Moles/volume] in Serum or PlasmaOrdered By: Michelle Kennedy on 06-26-2023 Potassium [Moles/Vol] 4.0 mmol/L 3.5-5.1 [facility] Protein [Mass/volume] in Ser um or PlasmaOrdered By: Michelle Kennedy on 06-26-2023 Protein [Mass/Vol] 7.0 g/dL 6.4-8.9 [facility] Serum or plasma albumin/glob ulin mass ratioOrdered By: Michelle Kennedy on 06-26-2023 Albumin/Globulin [Mass ratio] 1.2 {ratio} [facility] Serum or plasma anion gap de terminationOrdered By: Michelle Kennedy on 06-26-2023 Anion gap [Moles/Vol] 13.1 mmol/L 6.0-15.0 [facility] Serum or plasma high density lipoprotein (HDL) cholesterol measurementOrdered By: Michelle Kennedy on 06-26-2023 Cholesterol in HDL [Mass/Vol] 31 mg/dL [facility] Comment on above: HDL CHOL ATP-III CLA SSIFICATION Cardiovascular RiskHDL > or equal to 60 mg/dL LOWHDL < 40 mg/dL HIGH Serum or plasma total choles terol/high density lipoprotein (HDL) cholesterol mass ratOrdered By: Michelle Kennedy on 06-26-2023 Cholesterol.total/Chol esterol in HDL [Mass ratio] 4.6 {ratio} <5.0 [facility] Sodium [Moles/volume] in Ser um or PlasmaOrdered By: Michelle Kennedy on 06-26-2023 Sodium [Moles/Vol] 141 mmol/L 136-145 [facility] Triglyceride [Mass/volume] i n Serum or PlasmaOrdered By: Michelle Kennedy on 06-26-2023 Triglyceride [Mass/Vol] 200 mg/dL 0-149 [facility] Comment on above: TRIG ATP III CLASSIF ICATIONTRIG less than 150 mg/dL NormalTRIG 150-199 mg/dL Borderline highTRIG 200-500 mg/dL High TRIG greater than 500 mg/dL Very highStandard traceable to the Center for Disease Conrtrol and Prevention (CDC) test method. Urea nitrogen [Mass/volume] in Serum or PlasmaOrdered By: Michelle Kennedy on 06-26-2023 Urea nitrogen [Mass/Vol] 79 mg/dL 03-30 [facility] Albumin [Mass/volume] in Ser um or PlasmaOrdered By: Yocasta Villalba on 11-07-2022 Albumin [Mass/Vol] 2.9 g/dL 3.2-5.5 [facility] Basophils Auto (Bld) [#/Vol] Ordered By: Chintan Brewster on 11-07-2022 Basophils (Bld) [#/Vol] 0.0 10*3/uL 0.0-0.2 [facility] Basophils/100 WBC Auto (Bld) Ordered By: Chintan Brewster on 11-07-2022 Basophils/100 WBC (Bld) 0.1 % . [facility] Calcium [Mass/volume] in Ser um or PlasmaOrdered By: Yocasta Villalba on 11-07-2022 Calcium [Mass/Vol] 8.2 mg/dL 8.2-10.2 [facility] Carbon dioxide, total [Moles /volume] in Serum or PlasmaOrdered By: Yocasta Villalba on 11-07-2022 CO2 [Moles/Vol] 16.2 mmol/L 22.0-30.0 [facility] Chloride [Moles/volume] in S james or PlasmaOrdered By: Yocasta Villalba on 11-07-2022 Chloride [Moles/Vol] 109 mmol/L 95-114 [facility] Creatinine and Glomerular fi ltration rate.predicted panel (S/P/Bld)Ordered By: Yocasta Villalba on 11-07-2022 Creatinine [Mass/Vol] 6.66 mg/dL 0.64-1.27 [facility] Eosinophils Auto (Bld) [#/Vo l]Ordered By: Chintan Brewster on 11-07-2022 Eosinophils (Bld) [#/Vol] 0.0 10*3/uL 0.0-0.45 [facility] Eosinophils/100 WBC Auto (Bl d)Ordered By: Chintan Brewster on 11-07-2022 Eosinophils/100 WBC (Bld) 0.1 % . [facility] Erythrocyte distribution wid th Auto (RBC) [Ratio]Ordered By: Chintan Brewster on 11-07-2022 Erythrocyte distribution width (RBC) [Ratio] 14.2 % 12.0-14.8 [facility] Estimated glomerular filtrat ion rate (GFR) non- AmericanOrdered By: Yocasta Villalba on 11-07-2022 GFR/1.73 sq M.predicted among non-blacks MDRD (S/P/Bld) [Vol rate/Area] 9 mL/Min [facility] Glucose Glucometer (BldC) [M ass/Vol]Ordered By: Chintan Brewster on 11-07-2022 Glucose [Mass/Vol] 230 mg/dL [facility] Comment on above: Random Glucose Refer ence Range is dependent on time and content of last meal. Glucose of more than 200 mg/dL in a nonstressed, ambulatory subject supports the diagnosis of Diabetes Mellitus. Glucose [Mass/volume] in Ser um or PlasmaOrdered By: Yocasta Villalba on 11-07-2022 Glucose [Mass/Vol] 239 mg/dL 70-100 [facility] Comment on above: Delta: 340 on 7ADA recommended reference rangeRandom Glucose Reference Range is dependent on time and content of last meal. Glucose of more than 200 mg/dL in a nonstressed, ambulatory subject supports the diagnosis of Diabetes Mellitus. Hematocrit Auto (Bld) [Volum e fraction]Ordered By: Chintan Brewster on 11-07-2022 Hematocrit (Bld) [Volume fraction] 27.0 % 38.8-50.0 [facility] Hemoglobin [Mass/volume] in BloodOrdered By: Chintan Brewster on 11-07-2022 Hemoglobin (Bld) [Mass/Vol] 8.8 g/dL 13.0-17.0 [facility] Leukocytes [#/volume] correc scott for nucleated erythrocytes in Blood by Automated counOrdered By: Chintan Brewster on 11-07-2022 WBC corrected for nucl RBC Auto (Bld) [#/Vol] 12.4 10*3/uL 4.1-10.5 [facility] Lymphocytes Auto (Bld) [#/Vo l]Ordered By: Chintan Brewster on 11-07-2022 Lymphocytes (Bld) [#/Vol] 0.7 10*3/uL 1.00-4.8 [facility] Lymphocytes/100 WBC Auto (Bl d)Ordered By: Chintan Brewster on 11-07-2022 Lymphocytes/100 WBC (Bld) 5.8 % . [facility] MCH Auto (RBC) [Entitic mass ]Ordered By: Chintan Brewster on 11-07-2022 MCH (RBC) [Entitic mass] 29.7 pg 27.5-35.2 [facility] MCHC Auto (RBC) [Mass/Vol]Or dered By: Chintan Brewster on 11-07-2022 MCHC (RBC) [Mass/Vol] 32.7 g/dL 32.5-35.6 [facility] MCV Auto (RBC) [Entitic vol] Ordered By: Chintan Brewster on 11-07-2022 MCV (RBC) [Entitic vol] 90.8 fL 83.5-101 [facility] Monocytes Auto (Bld) [#/Vol] Ordered By: Chintan Brewster on 11-07-2022 Monocytes (Bld) [#/Vol] 0.8 10*3/uL 0.0-0.8 [facility] Monocytes/100 WBC Auto (Bld) Ordered By: Chintan Brewster on 11-07-2022 Monocytes/100 WBC (Bld) 6.5 % . [facility] Neutrophils Auto (Bld) [#/Vo l]Ordered By: Chintan Brewster on 11-07-2022 Neutrophils (Bld) [#/Vol] 10.9 10*3/uL 1.8-7.7 [facility] Neutrophils/100 WBC Auto (Bl d)Ordered By: Chintan Brewster on 11-07-2022 Neutrophils/100 WBC (Bld) 87.5 % . [facility] No Panel InformationOrdered By: Yocasta Villalba on 11-07-2022 Estimated GFR () 11 mL/Min [facility] Comment on above: GFR estimated refere nce range: According to KDOQI guidelines, <60 ml/min/1.73m2 is sufficient to diagnose a patient with chronic kidney disease. Pharmacy Creatinine Clearance (Chem 19.91 [facility] No Panel InformationOrdered By: Chintan Brewster on 11-07-2022 Bedside Glucose Comment Glu2: cleaned meter [facility] Bedside Glucose #2 Comment Will repeat test [facility] Nucleated erythrocytes [Pres ence] in Blood by Automated countOrdered By: Chintan Brewster on 11-07-2022 Nucleated RBC Auto Ql (Bld) 0.1 /100{WBC} 0-0.5 [facility] Phosphate [Mass/volume] in S james or PlasmaOrdered By: Yocasta Villalba on 11-07-2022 Phosphate [Mass/Vol] 4.2 mg/dL 2.5-4.6 [facility] Platelet mean volume Auto (B ld) [Entitic vol]Ordered By: Chintan Brewster on 11-07-2022 Platelet mean volume (Bld) [Entitic vol] 7.1 fL 6.6-10.1 [facility] Platelets Auto (Bld) [#/Vol] Ordered By: Chintan Brewster on 11-07-2022 Platelets (Bld) [#/Vol] 399 10*3/uL 150-450 [facility] Potassium [Moles/volume] in Serum or PlasmaOrdered By: Yocasta Villalba on 11-07-2022 Potassium [Moles/Vol] 4.4 mmol/L 3.5-5.1 [facility] Comment on above: *Additional results available. Contact laboratory/see report*Delta: 6.0 on 11/07/22-436 RBC Auto (Bld) [#/Vol]Ordere d By: Chintan Brewster on 11-07-2022 RBC (Bld) [#/Vol] 2.97 10*6/uL 3.90-5.60 [facility] Serum or plasma anion gap de terminationOrdered By: Yocasta Villalba on 11-07-2022 Anion gap [Moles/Vol] 14.2 mmol/L 6.0-15.0 [facility] Sodium [Moles/volume] in Ser um or PlasmaOrdered By: Yocasta Villalba on 11-07-2022 Sodium [Moles/Vol] 135 mmol/L 136-146 [facility] Urea nitrogen [Mass/volume] in Serum or PlasmaOrdered By: Yocasta Villalba on 11-07-2022 Urea nitrogen [Mass/Vol] 73 mg/dL 9 [facility] WBC Auto (Bld) [#/Vol]Ordere d By: Chintan Ney on 11-07-2022 WBC (Bld) [#/Vol] 12.4 10*3/uL 4.1-10.[address] [facility] [address] biopsyOrdered By: Yocasta rockwell on 11-06-2022 Transferrin [Mass/Vol] 225 mg/dL 180-380 [facility] Ferritin [Mass/volume] in Se rum or PlasmaOrdered By: Yocasta Villalba on 11-06-2022 Ferritin [Mass/Vol] 363.1 ng/mL 23.9-336.2 [facility] Folate [Mass/volume] in Seru m or PlasmaOrdered By: Yocasta Villalba on 11-06-2022 Folate [Mass/Vol] 11.5 ng/mL >5.9 [facility] Comment on above: Folate reference ran ge: >5.9 ng/mlThe WHO technical consultation on folate and vitamin [id number] has determined that folate concentrations lessthan 4 ng/ml are considered deficient. Iron [Mass/volume] in Serum or PlasmaOrdered By: Yocasta Villalba on 11-06-2022 Iron [Mass/Vol] 38 ug/dL 40-160 [facility] Iron binding capacity [Mass/ volume] in Serum or PlasmaOrdered By: Ycoasta Villalba on 11-06-2022 Iron binding capacity [Mass/Vol] 315 ug/dL 255-450 [facility] Iron saturation [Mass Fracti on] in Serum or PlasmaOrdered By: Yocasta Villalba on 11-06-2022 Iron saturation [Mass fraction] 12.1 % 20-50 [facility] COVID CepheidOrdered By: Joyce Brewster on 11-05-2022 SARS-CoV-2 (COVID-19) Ab IA Ql Negative Negative [facility] Comment on above: This is a duplicate Cepheid Xpert Xpress CoV-2/Flu/RSV Plus RNA by RT-PCR result to be used for statistical tracking purpose only. SARS-CoV-2 (COVID-19) RNA SHAY+probe Ql (Unsp spec) [facility] SARS-CoV-2 (COVID-19) RNA SHAY+probe Ql (Unsp spec) [facility] Activated partial thrombopla stin time (aPTT) in platelet poor plasma by coagulation aOrdered By: Millie Burgos on 11-04-2022 aPTT Coag (PPP) [Time] 35.0 s 25.1-36.5 [facility] Albumin [Mass/volume] in Bod y fluidOrdered By: Delano Mondragon on 11-04-2022 Albumin (Body fld) [Mass/Vol] 3.3 g/dL 3.2-5.5 [facility] Alkaline phosphatase [Enzyma tic activity/volume] in Serum or PlasmaOrdered By: Delano Mondragon on 11-04-2022 ALP [Catalytic activity/Vol] 59 U/L 32-92 [facility] Aspartate aminotransferase [ Enzymatic activity/volume] in Serum or PlasmaOrdered By: Delano Mondragon on 11-04-2022 AST [Catalytic activity/Vol] 14 U/L 10-42 [facility] Automated erythrocytes count in urine sediment (number/area)Ordered By: Millie Burgos on 11-04-2022 RBC Auto (Urine sed) [#/Area] 3-4 [HPF] 0-4 [facility] Automated leukocytes count i n urine sediment (number/area)Ordered By: Millie Burgos on 11-04-2022 WBC Auto (Urine sed) [#/Area] 1-2 [HPF] 0-4 [facility] Basophils Auto (Bld) [#/Vol] Ordered By: Delano Mondragon on 11-04-2022 Basophils (Bld) [#/Vol] 0.1 10*3/uL 0.0-0.2 [facility] Basophils/100 WBC Auto (Bld) Ordered By: Delano Mondragon on 11-04-2022 Basophils/100 WBC (Bld) 1.1 % . [facility] Bilirubin Test strip Ql (U)O rdered By: Millie Burgos on 11-04-2022 Bilirubin Ql (U) Negative Negative [facility] Bilirubin.total [Mass/volume ] in Serum or PlasmaOrdered By: Delano Mondragon on 11-04-2022 Bilirubin [Mass/Vol] 0.3 mg/dL 0.3-1.2 [facility] Calcium [Mass/volume] in Ser um or PlasmaOrdered By: Delano Mondragon on 11-04-2022 Calcium [Mass/Vol] 8.9 mg/dL 8.2-10.2 [facility] Carbon dioxide, total [Moles /volume] in Serum or PlasmaOrdered By: Delano Mondragon on 11-04-2022 CO2 [Moles/Vol] 17.3 mmol/L 22.0-30.0 [facility] Chloride [Moles/volume] in S james or PlasmaOrdered By: Delano Mondragon on 11-04-2022 Chloride [Moles/Vol] 112 mmol/L 95-114 [facility] Color Auto (U)Ordered By: Jose M Burgos on 11-04-2022 Color (U) Yellow Yellow [facility] Creatinine and Glomerular fi ltration rate.predicted panel (S/P/Bld)Ordered By: Delano Mondragon on 11-04-2022 Creatinine [Mass/Vol] 5.77 mg/dL 0.64-1.27 [facility] Eosinophils Auto (Bld) [#/Vo l]Ordered By: Delano Mondragon on 11-04-2022 Eosinophils (Bld) [#/Vol] 0.3 10*3/uL 0.0-0.45 [facility] Eosinophils/100 WBC Auto (Bl d)Ordered By: Delano Mondragon on 11-04-2022 Eosinophils/100 WBC (Bld) 2.7 % . [facility] Erythrocyte distribution wid th Auto (RBC) [Ratio]Ordered By: Delano Mondragon on 11-04-2022 Erythrocyte distribution width (RBC) [Ratio] 14.5 % 12.0-14.8 [facility] Estimated glomerular filtrat ion rate (GFR) non- AmericanOrdered By: Delano Mondragon on 11-04-2022 GFR/1.73 sq M.predicted among non-blacks MDRD (S/P/Bld) [Vol rate/Area] 10 mL/Min [facility] Globulin Calc (S) [Mass/Vol] Ordered By: Delano Mondragon on 11-04-2022 Globulin (S) [Mass/Vol] 4.2 g/dL [facility] Glucose [Mass/volume] in Ser um or PlasmaOrdered By: Delano Mondragon on 11-04-2022 Glucose [Mass/Vol] 82 mg/dL 70-100 [facility] Comment on above: ADA recommended refe rence rangeRandom Glucose Reference Range is dependent on time and content of last meal. Glucose of more than 200 mg/dL in a nonstressed, ambulatory subject supports the diagnosis of Diabetes Mellitus. Hematocrit Auto (Bld) [Volum e fraction]Ordered By: Delano Mondragon on 11-04-2022 Hematocrit (Bld) [Volume fraction] 30.2 % 38.8-50.0 [facility] Hemoglobin [Mass/volume] in BloodOrdered By: Delano Mondragon on 11-04-2022 Hemoglobin (Bld) [Mass/Vol] 9.8 g/dL 13.0-17.0 [facility] Ketones Auto test strip (U) [Mass/Vol]Ordered By: Millie Burgos on 11-04-2022 Ketones (U) [Mass/Vol] Negative Negative [facility] - Chemistry and C hemistry - challengeOrdered By: Millie Burgos on 11-04-2022 Magnesium [Mass/Vol] 1.6 mg/dL 1.6-2.6 [facility] Natriuretic peptide B (Bld) [Mass/Vol] 27.0 pg/mL 5-100 [facility] Laboratory - CoagulationOrde red By: Millie Burgos on 11-04-2022 PT Coag (PPP) [Time] 12.4 s 9.0-12.9 [facility] Laboratory - UrinalysisOrder ed By: Millie Burgos on 11-04-2022 Hyaline casts LM Ql (Urine sed) 0-8 [LPF] 0-8 [facility] Leukocytes [#/volume] correc scott for nucleated erythrocytes in Blood by Automated counOrdered By: Delano Mondragon on 11-04-2022 WBC corrected for nucl RBC Auto (Bld) [#/Vol] 12.2 10*3/uL 4.1-10.5 [facility] Lymphocytes Auto (Bld) [#/Vo l]Ordered By: Delano Mondragon on 11-04-2022 Lymphocytes (Bld) [#/Vol] 1.5 10*3/uL 1.00-4.8 [facility] Lymphocytes/100 WBC Auto (Bl d)Ordered By: Delano Mondragon on 11-04-2022 Lymphocytes/100 WBC (Bld) 12.4 % . [facility] MCH Auto (RBC) [Entitic mass ]Ordered By: Delano Mondragon on 11-04-2022 MCH (RBC) [Entitic mass] 29.6 pg 27.5-35.2 [facility] MCHC Auto (RBC) [Mass/Vol]Or dered By: Delano Mondragon on 11-04-2022 MCHC (RBC) [Mass/Vol] 32.6 g/dL 32.5-35.6 [facility] MCV Auto (RBC) [Entitic vol] Ordered By: Delano Mondragon on 11-04-2022 MCV (RBC) [Entitic vol] 90.9 fL 83.5-101 [facility] Monocyte distribution width [Entitic volume] in Blood by AutomatedOrdered By: Delano Mondragon on 11-04-2022 Monocyte distribution width Auto (Bld) [Entitic vol] 17.32 % 0.00-20.00 [facility] Monocytes Auto (Bld) [#/Vol] Ordered By: Delano Mondragon on 11-04-2022 Monocytes (Bld) [#/Vol] 1.1 10*3/uL 0.0-0.8 [facility] Monocytes/100 WBC Auto (Bld) Ordered By: Delano Mondragon on 11-04-2022 Monocytes/100 WBC (Bld) 9.0 % . [facility] Neutrophils Auto (Bld) [#/Vo l]Ordered By: Delano Mondragon on 11-04-2022 Neutrophils (Bld) [#/Vol] 9.1 10*3/uL 1.8-7.7 [facility] Neutrophils/100 WBC Auto (Bl d)Ordered By: Delano Mondragon on 11-04-2022 Neutrophils/100 WBC (Bld) 74.8 % . [facility] Nitrite Test strip Ql (U)Ord ered By: Millie Burgos on 11-04-2022 Nitrite Ql (U) Negative Negative [facility] No Panel InformationOrdered By: Delano Mondragon on 11-04-2022 Estimated GFR () 13 mL/Min [facility] Comment on above: GFR estimated refere nce range: According to KDOQI guidelines, <60 ml/min/1.73m2 is sufficient to diagnose a patient with chronic kidney disease. Pharmacy Creatinine Clearance (Chem 22.99 [facility] Nucleated erythrocytes [Pres ence] in Blood by Automated countOrdered By: Delano Mondragon on 11-04-2022 Nucleated RBC Auto Ql (Bld) 0.0 /100{WBC} 0-0.5 [facility] Phosphate [Mass/volume] in S james or PlasmaOrdered By: Millie Burgos on 11-04-2022 Phosphate [Mass/Vol] 3.8 mg/dL 2.5-4.6 [facility] Platelet mean volume Auto (B ld) [Entitic vol]Ordered By: Delano Mondragon on 11-04-2022 Platelet mean volume (Bld) [Entitic vol] 6.7 fL 6.6-10.1 [facility] Platelet poor plasma interna tional normalized ratio (INR) by coagulation assay (relatOrdered By: Millie Burgos on 11-04-2022 INR Coag (PPP) [Relative time] 1.1 {INR} [facility] Comment on above: INR Therapeutic [...] 11-04-2022 Platelets (Bld) [#/Vol] 418 10*3/uL 150-450 [facility] Potassium [Moles/volume] in Serum or PlasmaOrdered By: Delano Mondragon on 11-04-2022 Potassium [Moles/Vol] 5.3 mmol/L 3.5-5.1 [facility] Protein Auto test strip (U) [Mass/Vol]Ordered By: Millie Burgos on 11-04-2022 Protein (U) [Mass/Vol] 300 mg/dL Negative [facility] Protein [Mass/volume] in Ser um or PlasmaOrdered By: Delano Mondragon on 11-04-2022 Protein [Mass/Vol] 7.5 g/dL 6.1-7.9 [facility] RBC Auto (Bld) [#/Vol]Ordere d By: Delano Mondragon on 11-04-2022 RBC (Bld) [#/Vol] 3.32 10*6/uL 3.90-5.60 [facility] Serum or plasma alanine lawson otransferase measurement without P-5'-P (enzymatic activiOrdered By: Delano Mondragon on 11-04-2022 ALT No additional P-5'-P [Catalytic activity/Vol] 23 U/L 10-60 [facility] Serum or plasma albumin/glob ulin mass ratioOrdered By: Delano Mondragon on 11-04-2022 Albumin/Globulin [Mass ratio] 0.8 {ratio} [facility] Serum or plasma anion gap de terminationOrdered By: Delano Mondragon on 11-04-2022 Anion gap [Moles/Vol] 14.0 mmol/L 6.0-15.0 [facility] Sodium [Moles/volume] in Ser um or PlasmaOrdered By: Delano Mondragon on 11-04-2022 Sodium [Moles/Vol] 138 mmol/L 136-146 [facility] Specific gravity Auto test s trip (U) [Rel density]Ordered By: Millie Burgos on 11-04-2022 Specific gravity (U) [Rel density] 1.013 1.001-1.030 [facility] Squamous epithelial cells de tection in urine sediment by light microscopyOrdered By: Millie Burgos on 11-04-2022 Epithelial cells.squamous LM Ql (Urine sed) 0-1 [HPF] 0-2 [facility] Troponin I.cardiac [Mass/vol ume] in Serum or Plasma by High sensitivity methodOrdered By: Millie Burgos on 11-04-2022 Troponin I.cardiac High sensitivity method [Mass/Vol] 10 pg/mL 0-20 [facility] Urea nitrogen [Mass/volume] in Serum or PlasmaOrdered By: Delano Mondragon on 11-04-2022 Urea nitrogen [Mass/Vol] 52 mg/dL 9-23 [facility] Urine bacteria detection by automated methodOrdered By: Millie Burgos on 11-04-2022 Bacteria Auto Ql (U) None seen None Seen [facility] Urine clarity by refractomet ry automatedOrdered By: Millie Burgos on 11-04-2022 Clarity Refractometry automated (U) Clear Clear [facility] Urine glucose measurement by automated test strip (mass/volume)Ordered By: Millie Burgos on 11-04-2022 Glucose Auto test strip (U) [Mass/Vol] 100 mg/dL Normal [facility] Urine hemoglobin detection b y automated test stripOrdered By: Millie Burgos on 11-04-2022 Hemoglobin Auto test strip Ql (U) 1+ Negative [facility] Urine leukocyte esterase det ection by automated test stripOrdered By: Millie Burgos on 11-04-2022 Leukocyte esterase Auto test strip Ql (U) Negative Negative [facility] Urobilinogen Auto test strip (U) [Mass/Vol]Ordered By: Millie Burgos on 11-04-2022 Urobilinogen (U) [Mass/Vol] Normal mg/dL Normal [facility] WBC Auto (Bld) [#/Vol]Ordere d By: Delano Mondragon on 11-04-2022 WBC (Bld) [#/Vol] 12.2 10*3/uL 4.1-10.5 [facility] pH Auto test strip (U)Ordere d By: Millie Burgos on 11-04-2022 pH (U) 5.5 [pH] 5.0-9.0 [facility] Albumin [Mass/volume] in Ser um or PlasmaOrdered By: Ada Uriostegui on 11-02-2022 Albumin [Mass/Vol] 3.3 g/dL 3.2-5.5 [facility] Automated erythrocytes count in urine sediment (number/area)Ordered By: Ada Uriostegui on 11-02-2022 RBC Auto (Urine sed) [#/Area] 1-2 [HPF] 0-4 [facility] Automated leukocytes count i n urine sediment (number/area)Ordered By: Ada Uriostegui on 11-02-2022 WBC Auto (Urine sed) [#/Area] 0-1 [HPF] 0-4 [facility] Bilirubin Test strip Ql (U)O rdered By: Ada Uriostegui on 11-02-2022 Bilirubin Ql (U) Negative Negative [facility] biopsyOrdered By: Jonathan christensen on 11-02-2022 Transferrin [Mass/Vol] 270 mg/dL 180-380 [facility] Calcium [Mass/volume] in Ser um or PlasmaOrdered By: Ada Uriostegui on 11-02-2022 Calcium [Mass/Vol] 8.3 mg/dL 8.2-10.2 [facility] Carbon dioxide, total [Moles /volume] in Serum or PlasmaOrdered By: Ada Uriostegui on 11-02-2022 CO2 [Moles/Vol] 18.0 mmol/L 22.0-30.0 [facility] Chloride [Moles/volume] in S james or PlasmaOrdered By: Ada Uriostegui on 11-02-2022 Chloride [Moles/Vol] 112 mmol/L 95-114 [facility] Color Auto (U)Ordered By: Ab akhil Uriostegui on 11-02-2022 Color (U) Yellow Yellow [facility] Creatinine and Glomerular fi ltration rate.predicted panel (S/P/Bld)Ordered By: Ada Uriostegui on 11-02-2022 Creatinine [Mass/Vol] 5.16 mg/dL 0.64-1.27 [facility] Comment on above: Delta: 5.79 on 11/01 Erythrocyte distribution wid th Auto (RBC) [Ratio]Ordered By: Ada Uriostegui on 11-02-2022 Erythrocyte distribution width (RBC) [Ratio] 14.4 % 12.0-14.8 [facility] Estimated glomerular filtrat ion rate (GFR) non- AmericanOrdered By: Ada Uriostegui on 11-02-2022 GFR/1.73 sq M.predicted among non-blacks MDRD (S/P/Bld) [Vol rate/Area] 12 mL/Min [facility] Ferritin [Mass/volume] in Se rum or PlasmaOrdered By: Ada Uriostegui on 11-02-2022 Ferritin [Mass/Vol] 434.0 ng/mL 23.9-336.2 [facility] Glucose [Mass/volume] in Ser um or PlasmaOrdered By: Ada Uriostegui on 11-02-2022 Glucose [Mass/Vol] 165 mg/dL 70-100 [facility] Comment on above: ADA recommended refe rence rangeRandom Glucose Reference Range is dependent on time and content of last meal. Glucose of more than 200 mg/dL in a nonstressed, ambulatory subject supports the diagnosis of Diabetes Mellitus. Hematocrit Auto (Bld) [Volum e fraction]Ordered By: Ada Uriostegui on 11-02-2022 Hematocrit (Bld) [Volume fraction] 30.1 % 38.8-50.0 [facility] Hemoglobin [Mass/volume] in BloodOrdered By: Ada Uriostegui on 11-02-2022 Hemoglobin (Bld) [Mass/Vol] 9.8 g/dL 13.0-17.0 [facility] Iron [Mass/volume] in Serum or PlasmaOrdered By: Ada Uriostegui on 11-02-2022 Iron [Mass/Vol] 41 ug/dL 40-160 [facility] Iron binding capacity [Mass/ volume] in Serum or PlasmaOrdered By: Ada Uriostegui on 11-02-2022 Iron binding capacity [Mass/Vol] 378 ug/dL 255-450 [facility] Iron saturation [Mass Fracti on] in Serum or PlasmaOrdered By: Ada Uriostegui on 11-02-2022 Iron saturation [Mass fraction] 10.8 % 20-50 [facility] Ketones Auto test strip (U) [Mass/Vol]Ordered By: Ada Uriostegui on 11-02-2022 Ketones (U) [Mass/Vol] Negative [facility] and C hemistry - challengeOrdered By: Ada Uriostegui on 11-02-2022 Magnesium [Mass/Vol] 1.7 mg/dL 1.6-2.6 [facility] Laboratory - UrinalysisOrder ed By: Ada Uriostegui on 11-02-2022 Hyaline casts LM Ql (Urine sed) None seen [LPF] 0-8 [facility] Leukocytes [#/volume] correc scott for nucleated erythrocytes in Blood by Automated counOrdered By: Ada Uriostegui on 11-02-2022 WBC corrected for nucl RBC Auto (Bld) [#/Vol] 10.9 10*3/uL 4.1-10.5 [facility] MCH Auto (RBC) [Entitic mass ]Ordered By: Ada Uriostegui on 11-02-2022 MCH (RBC) [Entitic mass] 29.8 pg 27.5-35.2 [facility] MCHC Auto (RBC) [Mass/Vol]Or dered By: Ada Uriostegui on 11-02-2022 MCHC (RBC) [Mass/Vol] 32.5 g/dL 32.5-35.6 [facility] MCV Auto (RBC) [Entitic vol] Ordered By: Ada Uriostegui on 11-02-2022 MCV (RBC) [Entitic vol] 91.5 fL 83.5-101 [facility] Nitrite Test strip Ql (U)Ord ered By: Ada Uriostegui on 11-02-2022 Nitrite Ql (U) Negative Negative [facility] No Panel InformationOrdered By: Ada rUiostegui on 11-02-2022 25-Hydroxy Vitamin D Total 12.4 ng/mL 30-100 [facility] Comment on above: VITAMIN D STATUS 25( [place])VITAMIN D RANGE (ng/mL) Deficient <20 Insufficient 20 to <30Sufficient 30 to 100Reference: Sophy MF,Glendy NC, Nitin RAMOS, et al. Evaluation,treatment, and prevention of vitamin D deficiency; an Endocrine Society clinical practice guideline. JCEM. 2010; 96(7):1911-30. Estimated GFR () 14 mL/Min [facility] Comment on above: GFR estimated refere nce range: According to KDOQI guidelines, <60 ml/min/1.73m2 is sufficient to diagnose a patient with chronic kidney disease. Pharmacy Creatinine Clearance (Chem N/A [facility] Parathyrin.intact [Mass/volu me] in Serum or PlasmaOrdered By: Ada Uriostegui on 11-02-2022 Parathyrin.intact [Mass/Vol] 204.7 pg/mL 12-88 [facility] Phosphate [Mass/volume] in S james or PlasmaOrdered By: Ada Moody on 11-02-2022 Phosphate [Mass/Vol] 3.9 mg/dL 2.5-4.6 [facility] Platelet mean volume Auto (B ld) [Entitic vol]Ordered By: Ada Moody on 11-02-2022 Platelet mean volume (Bld) [Entitic vol] 7.0 fL 6.6-10.1 [facility] Platelets Auto (Bld) [#/Vol] Ordered By: Ada Moody on 11-02-2022 Platelets (Bld) [#/Vol] 323 10*3/uL 150-450 [facility] Potassium [Moles/volume] in Serum or PlasmaOrdered By: Ada Moody on 11-02-2022 Potassium [Moles/Vol] 5.9 mmol/L 3.5-5.1 [facility] Protein Auto test strip (U) [Mass/Vol]Ordered By: Ada Uriostegui on 11-02-2022 Protein (U) [Mass/Vol] 300 mg/dL Negative [facility] RBC Auto (Bld) [#/Vol]Ordere d By: Ada Moody on 11-02-2022 RBC (Bld) [#/Vol] 3.29 10*6/uL 3.90-5.60 [facility] Serum or plasma anion gap de terminationOrdered By: Ada Moody on 11-02-2022 Anion gap [Moles/Vol] 12.9 mmol/L 6.0-15.0 [facility] Sodium [Moles/volume] in Ser um or PlasmaOrdered By: Ada Moody on 11-02-2022 Sodium [Moles/Vol] 137 mmol/L 136-146 [facility] Specific gravity Auto test s trip (U) [Rel density]Ordered By: Ada Uriostegui on 11-02-2022 Specific gravity (U) [Rel density] 1.011 1.001-1.030 [facility] Squamous epithelial cells de tection in urine sediment by light microscopyOrdered By: Ada Uriostegui on 11-02-2022 Epithelial cells.squamous LM Ql (Urine sed) None seen [HPF] 0-2 [facility] Urate [Mass/volume] in Serum or PlasmaOrdered By: Ada Uriostegui on 11-02-2022 Urate [Mass/Vol] 5.3 mg/dL 2.6-7.2 [facility] Urea nitrogen [Mass/volume] in Serum or PlasmaOrdered By: Ada Uriostegui on 11-02-2022 Urea nitrogen [Mass/Vol] 58 mg/dL 9-23 [facility] Urine bacteria detection by automated methodOrdered By: Ada Uriostegui on 11-02-2022 Bacteria Auto Ql (U) None seen None Seen [facility] Urine clarity by refractomet ry automatedOrdered By: Ada Uriostegui on 11-02-2022 Clarity Refractometry automated (U) Clear Clear [facility] Urine glucose measurement by automated test strip (mass/volume)Ordered By: Ada Uriostegui on 11-02-2022 Glucose Auto test strip (U) [Mass/Vol] 250 mg/dL Normal [facility] Urine hemoglobin detection b y automated test stripOrdered By: Ada Uriostegui on 11-02-2022 Hemoglobin Auto test strip Ql (U) 1+ Negative [facility] Urine leukocyte esterase det ection by automated test stripOrdered By: Ada Uriostegui on 11-02-2022 Leukocyte esterase Auto test strip Ql (U) Negative Negative [facility] Urobilinogen Auto test strip (U) [Mass/Vol]Ordered By: Ada Uriostegui on 11-02-2022 Urobilinogen (U) [Mass/Vol] Normal mg/dL Normal [facility] pH Auto test strip (U)Ordere d By: Ada Uriostegui on 11-02-2022 pH (U) 5.5 [pH] 5.0-9.0 [facility] Activated partial thrombopla stin time (aPTT) in platelet poor plasma by coagulation aOrdered By: Mary Hill on 11-01-2022 aPTT Coag (PPP) [Time] 34.7 s 25.1-36.5 [facility] Alkaline phosphatase [Enzyma tic activity/volume] in Serum or PlasmaOrdered By: Mary Hill on 11-01-2022 ALP [Catalytic activity/Vol] 48 U/L 32-92 [facility] Aspartate aminotransferase [ Enzymatic activity/volume] in Serum or PlasmaOrdered By: Mary Hill on 11-01-2022 AST [Catalytic activity/Vol] 22 U/L 10-42 [facility] Basophils Auto (Bld) [#/Vol] Ordered By: Mary Hill on 11-01-2022 Basophils (Bld) [#/Vol] 0.1 10*3/uL 0.0-0.2 [facility] Basophils/100 WBC Auto (Bld) Ordered By: Mary Hill on 11-01-2022 Basophils/100 WBC (Bld) 0.5 % . [facility] Bilirubin.total [Mass/volume ] in Serum or PlasmaOrdered By: Mary Hill on 11-01-2022 Bilirubin [Mass/Vol] 0.4 mg/dL 0.3-1.2 [facility] Body fluid albumin measureme nt (mass/volume)Ordered By: Mary Hill on 11-01-2022 Albumin (Body fld) [Mass/Vol] 3.4 g/dL 3.2-5.5 [facility] Calcium [Mass/volume] in Ser um or PlasmaOrdered By: Mary Hill 11-01-2022 Calcium [Mass/Vol] 8.6 mg/dL 8.2-10.2 [facility] Carbon dioxide, total [Moles /volume] in Serum or PlasmaOrdered By: Mary Hill 11-01-2022 CO2 [Moles/Vol] 16.4 mmol/L 22.0-30.0 [facility] Chloride [Moles/volume] in S james or PlasmaOrdered By: Mary Hill 11-01-2022 Chloride [Moles/Vol] 109 mmol/L 95-114 [facility] Creatinine and Glomerular fi ltration rate.predicted panel (S/P/Bld)Ordered By: Mary Hill 11-01-2022 Creatinine [Mass/Vol] 5.79 mg/dL 0.64-1.27 [facility] Eosinophils Auto (Bld) [#/Vo l]Ordered By: Mary Hill on 11-01-2022 Eosinophils (Bld) [#/Vol] 0.3 10*3/uL 0.0-0.45 [facility] Eosinophils/100 WBC Auto (Bl d)Ordered By: Mary Hill on 11-01-2022 Eosinophils/100 WBC (Bld) 2.8 % . [facility] Erythrocyte distribution wid th Auto (RBC) [Ratio]Ordered By: Mary Hill on 11-01-2022 Erythrocyte distribution width (RBC) [Ratio] 14.9 % 12.0-14.8 [facility] Estimated glomerular filtrat ion rate (GFR) non- AmericanOrdered By: Mary Hill on 11-01-2022 GFR/1.73 sq M.predicted among non-blacks MDRD (S/P/Bld) [Vol rate/Area] 10 mL/Min [facility] Fecal occult blood detection by immunochemistryOrdered By: Mary Hill on 11-01-2022 Hemoglobin.gastrointes tinal Ql (Stl) [facility] Hemoglobin.gastrointes tinal Ql (Stl) [facility] Globulin Calc (S) [Mass/Vol] Ordered By: Mary Hill on 11-01-2022 Globulin (S) [Mass/Vol] 4.0 g/dL [facility] Glucose Glucometer (BldC) [M ass/Vol]Ordered By: Mary Hill on 11-01-2022 Glucose [Mass/Vol] 55 mg/dL [facility] Comment on above: Random Glucose Refer ence Range is dependent on time and content of last meal. Glucose of more than 200 mg/dL in a nonstressed, ambulatory subject supports the diagnosis of Diabetes Mellitus. Glucose [Mass/volume] in Ser um or PlasmaOrdered By: Mary Hill on 11-01-2022 Glucose [Mass/Vol] 80 mg/dL 70-100 [facility] Comment on above: ADA recommended refe rence rangeRandom Glucose Reference Range is dependent on time and content of last meal. Glucose of more than 200 mg/dL in a nonstressed, ambulatory subject supports the diagnosis of Diabetes Mellitus. Hematocrit Auto (Bld) [Volum e fraction]Ordered By: Mary Hill on 11-01-2022 Hematocrit (Bld) [Volume fraction] 29.9 % 38.8-50.0 [facility] Hemoglobin [Mass/volume] in BloodOrdered By: Mary Hill on 11-01-2022 Hemoglobin (Bld) [Mass/Vol] 9.8 g/dL 13.0-17.0 [facility] Laboratory - Chemistry and C hemistry - challengeOrdered By: Mary Hill on 11-01-2022 Natriuretic peptide B (Bld) [Mass/Vol] 32.0 pg/mL 5-100 [facility] Laboratory - CoagulationOrde red By: Mary Hill on 11-01-2022 PT Coag (PPP) [Time] 12.3 s 9.0-12.9 [facility] Leukocytes [#/volume] correc scott for nucleated erythrocytes in Blood by Automated counOrdered By: Mary Hill on 11-01-2022 WBC corrected for nucl RBC Auto (Bld) [#/Vol] 12.0 10*3/uL 4.1-10.5 [facility] Lymphocytes Auto (Bld) [#/Vo l]Ordered By: Mary Hill on 11-01-2022 Lymphocytes (Bld) [#/Vol] 1.7 10*3/uL 1.00-4.8 [facility] Lymphocytes/100 WBC Auto (Bl d)Ordered By: Mary Hill on 11-01-2022 Lymphocytes/100 WBC (Bld) 14.6 % . [facility] MCH Auto (RBC) [Entitic mass ]Ordered By: Mary Hill on 11-01-2022 MCH (RBC) [Entitic mass] 29.6 pg 27.5-35.2 [facility] MCHC Auto (RBC) [Mass/Vol]Or dered By: Mary Hill on 11-01-2022 MCHC (RBC) [Mass/Vol] 32.7 g/dL 32.5-35.6 [facility] MCV Auto (RBC) [Entitic vol] Ordered By: Mary Hill on 11-01-2022 MCV (RBC) [Entitic vol] 90.6 fL 83.5-101 [facility] Monocyte %Ordered By: Jacki Hill on 11-01-2022 Monocyte % 23 umol/L 11-35 [facility] Monocyte distribution width [Entitic volume] in Blood by AutomatedOrdered By: Mary Hill on 11-01-2022 Monocyte distribution width Auto (Bld) [Entitic vol] 14.78 % 0.00-20.00 [facility] Monocytes Auto (Bld) [#/Vol] Ordered By: Mary Hill on 11-01-2022 Monocytes (Bld) [#/Vol] 1.1 10*3/uL 0.0-0.8 [facility] Monocytes/100 WBC Auto (Bld) Ordered By: Mary Hill on 11-01-2022 Monocytes/100 WBC (Bld) 9.6 % . [facility] Neutrophils Auto (Bld) [#/Vo l]Ordered By: Mary Hill on 11-01-2022 Neutrophils (Bld) [#/Vol] 8.7 10*3/uL 1.8-7.7 [facility] Neutrophils/100 WBC Auto (Bl d)Ordered By: Mary Hill on 11-01-2022 Neutrophils/100 WBC (Bld) 72.5 % . [facility] No Panel InformationOrdered By: Mary Hill on 11-01-2022 Bedside Glucose Comment See comment [facility] Comment on above: Glu2: WILL NOTIFY DR /RN Estimated GFR () 13 mL/Min [facility] Comment on above: GFR estimated refere nce range: According to KDOQI guidelines, <60 ml/min/1.73m2 is sufficient to diagnose a patient with chronic kidney disease. Pharmacy Creatinine Clearance (Chem 23.31 [facility] Nucleated erythrocytes [Pres ence] in Blood by Automated countOrdered By: Mary Hill on 11-01-2022 Nucleated RBC Auto Ql (Bld) 0.1 /100{WBC} 0-0.5 [facility] Platelet mean volume Auto (B ld) [Entitic vol]Ordered By: Mary Hill on 11-01-2022 Platelet mean volume (Bld) [Entitic vol] 7.0 fL 6.6-10.1 [facility] Platelet poor plasma interna tional normalized ratio (INR) by coagulation assay (relatOrdered By: Mary Hill on 11-01-2022 INR Coag (PPP) [Relative time] 1.1 {INR} [facility] Comment on above: INR Therapeutic [...] 11-01-2022 Platelets (Bld) [#/Vol] 347 10*3/uL 150-450 [facility] Potassium [Moles/volume] in Serum or PlasmaOrdered By: Mary Hill on 11-01-2022 Potassium [Moles/Vol] 4.9 mmol/L 3.5-5.1 [facility] Protein [Mass/volume] in Ser um or PlasmaOrdered By: Mary Hill on 11-01-2022 Protein [Mass/Vol] 7.4 g/dL 6.1-7.9 [facility] RBC Auto (Bld) [#/Vol]Ordere d By: Mary Hill on 11-01-2022 RBC (Bld) [#/Vol] 3.30 10*6/uL 3.90-5.60 [facility] Serum or plasma alanine lawson otransferase measurement without P-5'-P (enzymatic activiOrdered By: Mary Hill on 11-01-2022 ALT No additional P-5'-P [Catalytic activity/Vol] 28 U/L 10-60 [facility] Serum or plasma albumin/glob ulin mass ratioOrdered By: Mary Hill on 11-01-2022 Albumin/Globulin [Mass ratio] 0.9 {ratio} [facility] Serum or plasma anion gap de terminationOrdered By: Mary Hill on 11-01-2022 Anion gap [Moles/Vol] 17.5 mmol/L 6.0-15.0 [facility] Sodium [Moles/volume] in Ser um or PlasmaOrdered By: Mary Hill on 11-01-2022 Sodium [Moles/Vol] 138 mmol/L 136-146 [facility] Troponin I.cardiac [Mass/vol ume] in Serum or Plasma by High sensitivity methodOrdered By: Mary Hill on 11-01-2022 Troponin I.cardiac High sensitivity method [Mass/Vol] 7 pg/mL 0-20 [facility] Urea nitrogen [Mass/volume] in Serum or PlasmaOrdered By: Mary Hill on 11-01-2022 Urea nitrogen [Mass/Vol] 59 mg/dL 9-23 [facility] WBC Auto (Bld) [#/Vol]Ordere d By: Mary Hill on 11-01-2022 WBC (Bld) [#/Vol] 12.0 10*3/uL 4.1-10.5 [facility] VL Extremity Venous Duplex L ower [...] called to Shirley at Dr. Francois 12:35pm. [employer] Ass[employer] Gunner: Rea Tristan, RVT Radiologist Report Bilateral lower [...] Electronically Signed in Other Vendor System) Normal [facility] Albumin [Mass/volume] in Ser um or PlasmaOrdered By: Yolie Noe on 09-23-2022 Albumin [Mass/Vol] 3.3 g/dL 3.2-5.5 [facility] Basophils Auto (Bld) [#/Vol] Ordered By: Yolie Noe on 09-23-2022 Basophils (Bld) [#/Vol] 0.1 10*3/uL 0.0-0.2 [facility] Basophils/100 WBC Auto (Bld) Ordered By: Yolie Noe on 09-23-2022 Basophils/100 WBC (Bld) 0.8 % . [facility] Creatinine and Glomerular fi ltration rate.predicted panel (S/P/Bld)Ordered By: Yolie Noe on 09-23-2022 Creatinine [Mass/Vol] 5.82 mg/dL 0.64-1.27 [facility] Eosinophils Auto (Bld) [#/Vo l]Ordered By: Yolie Noe on 09-23-2022 Eosinophils (Bld) [#/Vol] 0.3 10*3/uL 0.0-0.45 [facility] Eosinophils/100 WBC Auto (Bl d)Ordered By: Yolie Noe on 09-23-2022 Eosinophils/100 WBC (Bld) 2.6 % . [facility] Erythrocyte distribution wid th Auto (RBC) [Ratio]Ordered By: Yolie Noe on 09-23-2022 Erythrocyte distribution width (RBC) [Ratio] 14.0 % 12.0-14.8 [facility] Estimated glomerular filtrat ion rate (GFR) non- AmericanOrdered By: Yolie Noe on 09-23-2022 GFR/1.73 sq M.predicted among non-blacks MDRD (S/P/Bld) [Vol rate/Area] 10 mL/Min [facility] Globulin Calc (S) [Mass/Vol] Ordered By: Yolie Noe on 09-23-2022 Globulin (S) [Mass/Vol] 3.6 g/dL [facility] Glucose Glucometer (BldC) [M ass/Vol]Ordered By: PROVIDER TEMP on 09-23-2022 Glucose [Mass/Vol] 151 mg/dL [facility] Comment on above: Random Glucose Refer ence Range is dependent on time and content of last meal. Glucose of more than 200 mg/dL in a nonstressed, ambulatory subject supports the diagnosis of Diabetes Mellitus. Hematocrit Auto (Bld) [Volum e fraction]Ordered By: Yolie Noe on 09-23-2022 Hematocrit (Bld) [Volume fraction] 33.0 % 38.8-50.0 [facility] Hemoglobin [Mass/volume] in BloodOrdered By: Yolie Noe on 09-23-2022 Hemoglobin (Bld) [Mass/Vol] 11.1 g/dL 13.0-17.0 [facility] Leukocytes [#/volume] correc scott for nucleated erythrocytes in Blood by Automated counOrdered By: Yolie Noe on 09-23-2022 WBC corrected for nucl RBC Auto (Bld) [#/Vol] 9.9 10*3/uL 4.1-10.5 [facility] Lymphocytes Auto (Bld) [#/Vo l]Ordered By: Yolie Noe on 09-23-2022 Lymphocytes (Bld) [#/Vol] 2.7 10*3/uL 1.00-4.8 [facility] Lymphocytes/100 WBC Auto (Bl d)Ordered By: Yolie Noe on 09-23-2022 Lymphocytes/100 WBC (Bld) 27.6 % . [facility] MCH Auto (RBC) [Entitic mass ]Ordered By: Yolie Noe on 09-23-2022 MCH (RBC) [Entitic mass] 29.5 pg 27.5-35.2 [facility] MCHC Auto (RBC) [Mass/Vol]Or dered By: Yolie Noe on 09-23-2022 MCHC (RBC) [Mass/Vol] 33.5 g/dL 32.5-35.6 [facility] MCV Auto (RBC) [Entitic vol] Ordered By: Yolie Noe on 09-23-2022 MCV (RBC) [Entitic vol] 88.2 fL 83.5-101 [facility] Monocyte distribution width [Entitic volume] in Blood by AutomatedOrdered By: Yolie Noe on 09-23-2022 Monocyte distribution width Auto (Bld) [Entitic vol] 16.48 % 0.00-20.00 [facility] Monocytes Auto (Bld) [#/Vol] Ordered By: Yolie Noe on 09-23-2022 Monocytes (Bld) [#/Vol] 0.9 10*3/uL 0.0-0.8 [facility] Monocytes/100 WBC Auto (Bld) Ordered By: Yolie Noe on 09-23-2022 Monocytes/100 WBC (Bld) 8.8 % . [facility] Neutrophils Auto (Bld) [#/Vo l]Ordered By: Yolie Noe on 09-23-2022 Neutrophils (Bld) [#/Vol] 5.9 10*3/uL 1.8-7.7 [facility] Neutrophils/100 WBC Auto (Bl d)Ordered By: Yolie Noe on 09-23-2022 Neutrophils/100 WBC (Bld) 60.2 % . [facility] No Panel InformationOrdered By: Yolie Noe on 09-23-2022 Estimated GFR () 12 mL/Min [facility] Comment on above: GFR estimated refere nce range: According to KDOQI guidelines, <60 ml/min/1.73m2 is sufficient to diagnose a patient with chronic kidney disease. Pharmacy Creatinine Clearance (Chem 22.77 [facility] Nucleated erythrocytes [Pres ence] in Blood by Automated countOrdered By: Yoliemarie Noe on 09-23-2022 Nucleated RBC Auto Ql (Bld) 0.1 /100{WBC} 0-0.5 [facility] Platelet mean volume Auto (B ld) [Entitic vol]Ordered By: Yolie Noe on 09-23-2022 Platelet mean volume (Bld) [Entitic vol] 7.0 fL 6.6-10.1 [facility] Platelets Auto (Bld) [#/Vol] Ordered By: Yolie Noe on 09-23-2022 Platelets (Bld) [#/Vol] 420 10*3/uL 150-450 [facility] Protein [Mass/volume] in Ser um or PlasmaOrdered By: Yolie Noe on 09-23-2022 Protein [Mass/Vol] 6.9 g/dL 6.1-7.9 [facility] RBC Auto (Bld) [#/Vol]Ordere d By: Yolie Hasmukh on 09-23-2022 RBC (Bld) [#/Vol] 3.74 10*6/uL 3.90-5.60 [facility] Serum or plasma alanine lawson otransferase measurement without P-5'-P (enzymatic activiOrdered By: Yolie Noe on 09-23-2022 ALT No additional P-5'-P [Catalytic activity/Vol] 19 U/L 10-60 [facility] Serum or plasma albumin/glob ulin mass ratioOrdered By: Yolie Noe on 09-23-2022 Albumin/Globulin [Mass ratio] 0.9 {ratio} [facility] Serum or plasma alkaline elliot sphatase measurement (enzymatic activity/volume)Ordered By: Yolie Noe on 09-23-2022 ALP [Catalytic activity/Vol] 61 U/L 32-92 [facility] Serum or plasma anion gap de terminationOrdered By: Yolie Noe on 09-23-2022 Anion gap [Moles/Vol] 14.3 mmol/L 6.0-15.0 [facility] Serum or plasma aspartate am inotransferase measurement (enzymatic activity/volume)Ordered By: Yolie Hasmukh on 09-23-2022 AST [Catalytic activity/Vol] 15 U/L 10-42 [facility] Serum or plasma calcium shante urement (mass/volume)Ordered By: Yolie Hasmukh on 09-23-2022 Calcium [Mass/Vol] 8.6 mg/dL 8.2-10.2 [facility] Serum or plasma chloride alber surement (moles/volume)Ordered By: Yolie Hasmukh on 09-23-2022 Chloride [Moles/Vol] 107 mmol/L 95-114 [facility] Serum or plasma glucose shante urement (mass/volume)Ordered By: Yolie Hasmukh on 09-23-2022 Glucose [Mass/Vol] 150 mg/dL 70-100 [facility] Comment on above: ADA recommended refe rence rangeRandom Glucose Reference Range is dependent on time and content of last meal. Glucose of more than 200 mg/dL in a nonstressed, ambulatory subject supports the diagnosis of Diabetes Mellitus. Serum or plasma potassium me asurement (moles/volume)Ordered By: Yolie Hasmukh on 09-23-2022 Potassium [Moles/Vol] 4.0 mmol/L 3.5-5.1 [facility] Serum or plasma sodium measu rement (moles/volume)Ordered By: Yolie Hasmukh on 09-23-2022 Sodium [Moles/Vol] 139 mmol/L 136-146 [facility] Serum or plasma total biliru bin measurement (mass/volume)Ordered By: Yoliemarie Noe on 09-23-2022 Bilirubin [Mass/Vol] 0.3 mg/dL 0.3-1.2 [facility] Serum or plasma total carbon dioxide measurement (moles/volume)Ordered By: Yoliemarie Noe on 09-23-2022 CO2 [Moles/Vol] 21.7 mmol/L 22.0-30.0 [facility] Serum or plasma urea nitroge n measurement (mass/volume)Ordered By: Yolie Noe on 09-23-2022 Urea nitrogen [Mass/Vol] 70 mg/dL 9-23 [facility] WBC Auto (Bld) [#/Vol]Ordere d By: Yolie Noe on 09-23-2022 WBC (Bld) [#/Vol] 9.9 10*3/uL 4.1-10.5 [facility] Albumin [Mass/volume] in Ser um or PlasmaOrdered By: Ada Uriostegui on 08-03-2022 Albumin [Mass/Vol] 3.4 g/dL 3.2-5.[address] [facility] [address] biopsyOrdered By: Jonathan christensen on 08-03-2022 Transferrin [Mass/Vol] 270 mg/dL 180-380 [facility] Creatinine and Glomerular fi ltration rate.predicted panel (S/P/Bld)Ordered By: Ada Uriostegui on 08-03-2022 Creatinine [Mass/Vol] 4.98 mg/dL 0.64-1.27 [facility] Erythrocyte distribution wid th Auto (RBC) [Ratio]Ordered By: Ada Uriostegui on 08-03-2022 Erythrocyte distribution width (RBC) [Ratio] 14.4 % 12.0-14.8 [facility] Estimated glomerular filtrat ion rate (GFR) non- AmericanOrdered By: Ada Uriostegui on 08-03-2022 GFR/1.73 sq M.predicted among non-blacks MDRD (S/P/Bld) [Vol rate/Area] 12 mL/Min [facility] Ferritin [Mass/volume] in Se rum or PlasmaOrdered By: Ada Uriostegui on 08-03-2022 Ferritin [Mass/Vol] 331.3 ng/mL 23.9-336.2 [facility] Hematocrit Auto (Bld) [Volum e fraction]Ordered By: Ada Uriostegui on 08-03-2022 Hematocrit (Bld) [Volume fraction] 31.6 % 38.8-50.0 [facility] Hemoglobin [Mass/volume] in BloodOrdered By: Ada Uriostegui on 08-03-2022 Hemoglobin (Bld) [Mass/Vol] 10.3 g/dL 13.0-17.0 [facility] Iron [Mass/volume] in Serum or PlasmaOrdered By: Ada Uriostegui on 08-03-2022 Iron [Mass/Vol] 90 ug/dL 40-160 [facility] Iron binding capacity [Mass/ volume] in Serum or PlasmaOrdered By: Ada Uriostegui on 08-03-2022 Iron binding capacity [Mass/Vol] 378 ug/dL 255-450 [facility] Iron saturation [Mass Fracti on] in Serum or PlasmaOrdered By: Ada Uriostegui on 08-03-2022 Iron saturation [Mass fraction] 23.0 % 20-50 [facility] MCH Auto (RBC) [Entitic mass ]Ordered By: Ada Uriostegui on 08-03-2022 MCH (RBC) [Entitic mass] 29.2 pg 27.5-35.2 [facility] MCHC Auto (RBC) [Mass/Vol]Or dered By: Ada Uriostegui on 08-03-2022 MCHC (RBC) [Mass/Vol] 32.6 g/dL 32.5-35.6 [facility] MCV Auto (RBC) [Entitic vol] Ordered By: Ada Uriostegui on 08-03-2022 MCV (RBC) [Entitic vol] 89.7 fL 83.5-101 [facility] No Panel InformationOrdered By: Ada Uriostegui on 08-03-2022 25-Hydroxy Vitamin D Total 14.6 ng/mL 30-100 [facility] Comment on above: VITAMIN D STATUS 25( [place])VITAMIN D RANGE (ng/mL) Deficient <20 Insufficient 20 to <30Sufficient 30 to 100Reference: Sophy MF,Glendy BARTH, Nitin RAMOS, et al. Evaluation,treatment, and prevention of vitamin D deficiency; an Endocrine Society clinical practice guideline. JCEM. 2010; 96(7):1911-30. Estimated GFR () 15 mL/Min [facility] Comment on above: GFR estimated refere nce range: According to KDOQI guidelines, <60 ml/min/1.73m2 is sufficient to diagnose a patient with chronic kidney disease. Pharmacy Creatinine Clearance (Chem N/A [facility] Phosphate [Mass/volume] in S james or PlasmaOrdered By: Ada Uriostegui on 08-03-2022 Phosphate [Mass/Vol] 3.1 mg/dL 2.5-4.6 [facility] Platelet mean volume Auto (B ld) [Entitic vol]Ordered By: Ada Uriostegui on 08-03-2022 Platelet mean volume (Bld) [Entitic vol] 7.2 fL 6.6-10.1 [facility] Platelets Auto (Bld) [#/Vol] Ordered By: Ada Uriostegui on 08-03-2022 Platelets (Bld) [#/Vol] 390 10*3/uL 150-450 [facility] RBC Auto (Bld) [#/Vol]Ordere d By: Ada Uriostegui on 08-03-2022 RBC (Bld) [#/Vol] 3.52 10*6/uL 3.90-5.60 [facility] Serum or plasma anion gap de terminationOrdered By: Ada Uriostegui on 08-03-2022 Anion gap [Moles/Vol] 14.6 mmol/L 6.0-15.0 [facility] Serum or plasma calcium shante urement (mass/volume)Ordered By: Ada Uriostegui on 08-03-2022 Calcium [Mass/Vol] 9.0 mg/dL 8.2-10.2 [facility] Serum or plasma chloride alber surement (moles/volume)Ordered By: Ada Uriostegui on 08-03-2022 Chloride [Moles/Vol] 105 mmol/L 95-114 [facility] Serum or plasma glucose shante urement (mass/volume)Ordered By: Ada Uriostegui on 08-03-2022 Glucose [Mass/Vol] 188 mg/dL 70-100 [facility] Comment on above: ADA recommended refe rence rangeRandom Glucose Reference Range is dependent on time and content of last meal. Glucose of more than 200 mg/dL in a nonstressed, ambulatory subject supports the diagnosis of Diabetes Mellitus. Serum or plasma intact parat hyroid hormone measurement (mass/volume)Ordered By: Ada Uriostegui on 08-03-2022 Parathyrin.intact [Mass/Vol] 151.8 pg/mL 12-88 [facility] Serum or plasma potassium me asurement (moles/volume)Ordered By: Ada Uriostegui on 08-03-2022 Potassium [Moles/Vol] 5.1 mmol/L 3.5-5.1 [facility] Serum or plasma sodium measu rement (moles/volume)Ordered By: Ada Uriostegui on 08-03-2022 Sodium [Moles/Vol] 139 mmol/L 136-146 [facility] Serum or plasma total carbon dioxide measurement (moles/volume)Ordered By: Ada Uriostegui on 08-03-2022 CO2 [Moles/Vol] 24.5 mmol/L 22.0-30.0 [facility] Serum or plasma urea nitroge n measurement (mass/volume)Ordered By: Ada Uriostegui on 08-03-2022 Urea nitrogen [Mass/Vol] 60 mg/dL 05-29 [facility] Serum or plasma uric acid me asurement (mass/volume)Ordered By: Ada Uriostegui on 08-03-2022 Urate [Mass/Vol] 5.6 mg/dL 2.6-7.2 [facility] WBC Auto (Bld) [#/Vol]Ordere d By: Ada Uriostegui on 08-03-2022 WBC (Bld) [#/Vol] 9.5 10*3/uL 4.1-10.5 [facility] Basophils Auto (Bld) [#/Vol] Ordered By: Yosef Castillo on 07-29-2022 Basophils (Bld) [#/Vol] 0.1 10*3/uL 0.0-0.2 [facility] Basophils/100 WBC Auto (Bld) Ordered By: Yosef Castillo on 07-29-2022 Basophils/100 WBC (Bld) 0.9 % . [facility] Beta-hydroxybutyric acid alber surementOrdered By: Yosef Castillo on 07-29-2022 Beta hydroxybutyrate [Mass/Vol] 0.25 mmol/L 0.05-0.27 [facility] Body fluid albumin measureme nt (mass/volume)Ordered By: Yosef Castillo on 07-29-2022 Albumin (Body fld) [Mass/Vol] 3.6 g/dL 3.2-5.5 [facility] Creatinine and Glomerular fi ltration rate.predicted panel (S/P/Bld)Ordered By: Yosef Castillo on 07-29-2022 Creatinine [Mass/Vol] 5.97 mg/dL 0.64-1.27 [facility] Eosinophils Auto (Bld) [#/Vo l]Ordered By: Yosef Castillo on 07-29-2022 Eosinophils (Bld) [#/Vol] 0.3 10*3/uL 0.0-0.45 [facility] Eosinophils/100 WBC Auto (Bl d)Ordered By: Yosef Castillo on 07-29-2022 Eosinophils/100 WBC (Bld) 2.9 % . [facility] Erythrocyte distribution wid th Auto (RBC) [Ratio]Ordered By: Yosef Castillo on 07-29-2022 Erythrocyte distribution width (RBC) [Ratio] 14.1 % 12.0-14.8 [facility] Estimated glomerular filtrat ion rate (GFR) non- AmericanOrdered By: Yosef Castillo on 07-29-2022 GFR/1.73 sq M.predicted among non-blacks MDRD (S/P/Bld) [Vol rate/Area] 10 mL/Min [facility] Globulin Calc (S) [Mass/Vol] Ordered By: Yosef Castillo on 07-29-2022 Globulin (S) [Mass/Vol] 3.3 g/dL [facility] Glucose Glucometer (BldC) [M ass/Vol]Ordered By: Yosef Castillo on 07-29-2022 Glucose [Mass/Vol] 266 mg/dL [facility] Comment on above: Random Glucose Refer ence Range is dependent on time and content of last meal. Glucose of more than 200 mg/dL in a nonstressed, ambulatory subject supports the diagnosis of Diabetes Mellitus. Hematocrit Auto (Bld) [Volum e fraction]Ordered By: Yosef Castillo on 07-29-2022 Hematocrit (Bld) [Volume fraction] 32.7 % 38.8-50.0 [facility] Hemoglobin [Mass/volume] in BloodOrdered By: Yosef Castillo on 07-29-2022 Hemoglobin (Bld) [Mass/Vol] 10.8 g/dL 13.0-17.0 [facility] Laboratory - Chemistry and C hemistry - challengeOrdered By: Yosef Castillo on 07-29-2022 CO2 [Moles/Vol] 22.9 mmol/L 24.0-29.0 [facility] HCO3 (Bld) [Moles/Vol] 21.7 mmol/L 23.0-29.0 [facility] Lipase [Catalytic activity/Vol] 38.0 U/L 22-51 [facility] Laboratory - Hematology and Cell countsOrdered By: Yosef Castillo on 07-29-2022 Nucleated RBC/100 WBC (Bld) [Ratio] 0.0 % 0-0.5 [facility] Leukocytes [#/volume] in Blo od by Automated countOrdered By: Yosef Castillo on 07-29-2022 WBC (Bld) [#/Vol] 11.0 10*3/uL 4.5-11.0 [facility] Lymphocytes Auto (Bld) [#/Vo l]Ordered By: Yosef Castillo on 07-29-2022 Lymphocytes (Bld) [#/Vol] 2.0 10*3/uL 1.00-4.8 [facility] Lymphocytes/100 WBC Auto (Bl d)Ordered By: Yosef Castillo on 07-29-2022 Lymphocytes/100 WBC (Bld) 17.9 % . [facility] MCH Auto (RBC) [Entitic mass ]Ordered By: Yosef Castillo on 07-29-2022 MCH (RBC) [Entitic mass] 29.4 pg 27.5-35.2 [facility] MCHC Auto (RBC) [Mass/Vol]Or dered By: Yosef Castillo on 07-29-2022 MCHC (RBC) [Mass/Vol] 33.0 g/dL 32.5-35.6 [facility] MCV Auto (RBC) [Entitic vol] Ordered By: Yosef Castillo on 07-29-2022 MCV (RBC) [Entitic vol] 88.8 fL 83.5-101 [facility] Monocytes Auto (Bld) [#/Vol] Ordered By: Yosef Castillo on 07-29-2022 Monocytes (Bld) [#/Vol] 0.7 10*3/uL 0.0-0.8 [facility] Monocytes/100 WBC Auto (Bld) Ordered By: Yosef Castillo on 07-29-2022 Monocytes/100 WBC (Bld) 5.9 % . [facility] Neutrophils Auto (Bld) [#/Vo l]Ordered By: Yosef Castillo on 07-29-2022 Neutrophils (Bld) [#/Vol] 8.0 10*3/uL 1.8-7.7 [facility] Neutrophils/100 WBC Auto (Bl d)Ordered By: Yosef Castillo on 07-29-2022 Neutrophils/100 WBC (Bld) 72.4 % . [facility] No Panel InformationOrdered By: Yosef Castillo on 07-29-2022 Blood Gas Critical Value See comment [facility] Comment on above: Critical Value metz d on: 07/29/2022 at 00:48 Blood Gas Sample Site Venous Fir [facility] FiO2 21 % [facility] Venous Blood Base Excess -3.7 mmol/L -3.0-3.0 [facility] Venous Blood Oxygen Content 5.6 mmol/L 6.6-9.7 [facility] Venous Blood Oxygen Saturation 79.1 % 73.0-76.0 [facility] Venous Blood Partial Pressure CO2 40.4 mm[Hg] 38.0-50.0 [facility] Venous Blood Partial Pressure O2 41.6 mm[Hg] 35.0-45.0 [facility] Venous Blood pH 7.35 7.32-7.43 [facility] Estimated GFR () 12 mL/Min [facility] Comment on above: GFR estimated refere nce range: According to KDOQI guidelines, <60 ml/min/1.73m2 is sufficient to diagnose a patient with chronic kidney disease. Pharmacy Creatinine Clearance (Chem 21.83 [facility] Platelet mean volume Auto (B ld) [Entitic vol]Ordered By: Yosef Castillo on 07-29-2022 Platelet mean volume (Bld) [Entitic vol] 7.6 fL 6.6-10.1 [facility] Platelets Auto (Bld) [#/Vol] Ordered By: Yosef Castillo on 07-29-2022 Platelets (Bld) [#/Vol] 382 10*3/uL 150-450 [facility] Protein [Mass/volume] in Ser um or PlasmaOrdered By: Yosef Castillo on 07-29-2022 Protein [Mass/Vol] 6.9 g/dL 6.1-7.9 [facility] RBC Auto (Bld) [#/Vol]Ordere d By: Yosef Castillo on 07-29-2022 RBC (Bld) [#/Vol] 3.68 10*6/uL 3.90-5.60 [facility] Serum or plasma alanine lawson otransferase measurement without P-5'-P (enzymatic activiOrdered By: Yosef Castillo on 07-29-2022 ALT No additional P-5'-P [Catalytic activity/Vol] 17 U/L 10-60 [facility] Serum or plasma albumin/glob ulin mass ratioOrdered By: Yosef Castillo on 07-29-2022 Albumin/Globulin [Mass ratio] 1.1 {ratio} [facility] Serum or plasma alkaline elliot sphatase measurement (enzymatic activity/volume)Ordered By: Yosef Castillo on 07-29-2022 ALP [Catalytic activity/Vol] 52 U/L 32-92 [facility] Serum or plasma anion gap de terminationOrdered By: Yosef Castillo on 07-29-2022 Anion gap [Moles/Vol] TNP [facility] Comment on above: Test not performed Serum or plasma aspartate am inotransferase measurement (enzymatic activity/volume)Ordered By: Yosef Castillo on 07-29-2022 AST [Catalytic activity/Vol] 26 U/L 10-42 [facility] Serum or plasma calcium shante urement (mass/volume)Ordered By: Yosef Castillo on 07-29-2022 Calcium [Mass/Vol] 8.9 mg/dL 8.2-10.2 [facility] Serum or plasma chloride alber surement (moles/volume)Ordered By: Yosef Castillo on 07-29-2022 Chloride [Moles/Vol] 105 mmol/L 95-114 [facility] Serum or plasma glucose shante urement (mass/volume)Ordered By: Yosef Castillo on 07-29-2022 Glucose [Mass/Vol] 233 mg/dL 70-100 [facility] Comment on above: ADA recommended refe rence rangeRandom Glucose Reference Range is dependent on time and content of last meal. Glucose of more than 200 mg/dL in a nonstressed, ambulatory subject supports the diagnosis of Diabetes Mellitus. Serum or plasma potassium me asurement (moles/volume)Ordered By: Yosef Castillo on 07-29-2022 Potassium [Moles/Vol] 4.4 mmol/L 3.5-5.1 [facility] Serum or plasma sodium measu rement (moles/volume)Ordered By: Yosef Castillo on 07-29-2022 Sodium [Moles/Vol] 142 mmol/L 136-146 [facility] Serum or plasma total biliru bin measurement (mass/volume)Ordered By: Yosef Castillo on 07-29-2022 Bilirubin [Mass/Vol] 0.7 mg/dL 0.3-1.2 [facility] Serum or plasma total carbon dioxide measurement (moles/volume)Ordered By: Yosef Castillo on 07-29-2022 CO2 [Moles/Vol] 21.9 mmol/L 22.0-30.0 [facility] Serum or plasma urea nitroge n measurement (mass/volume)Ordered By: Yosef Castillo on 07-29-2022 Urea nitrogen [Mass/Vol] 74 mg/dL 05-29 [facility] TSH DL <= 0.005 mIU/L QnOrde red By: Yosef Castillo on 07-29-2022 TSH Qn 2.69 m[IU]/L 0.45-5.33 [facility] Thyroxine (T4) free [Mass/vo lume] in Serum or PlasmaOrdered By: Yosef Castillo on 07-29-2022 Free T4 [Mass/Vol] 0.78 ng/dL 0.61-1.12 [facility] Troponin I.cardiac [Mass/vol ume] in Serum or Plasma by High sensitivity methodOrdered By: Yosef Castillo on 07-29-2022 Troponin I.cardiac High sensitivity method [Mass/Vol] 7 pg/mL 0-20 [facility] C [place] 07-20-2022 C Wound [...] <=1 V Vancomycin S 1 V Normal [facility] Comment on above: Performed By: #### W DC #### [facility] (DEFAULT) [address] [place], [place] [id number] [place] [address] No Panel Informationon 07-17 Body mass index (BMI) [Percentile] Per age and sex 0.1 {percentile} Invalid Interpretation Code SimuForm [id number] Per age and sex 0.1 {percentile} Invalid Interpretation Code [employer] Body fluid albumin measureme nt (mass/volume)Ordered By: Ada Uriostegui on 06-27-2022 Albumin (Body fld) [Mass/Vol] 3.6 g/dL 3.2-5.5 [facility] CT biopsyOrdered By: Jonathan christensen on 06-27-2022 Transferrin [Mass/Vol] 286 mg/dL 180-380 [facility] Creatinine and Glomerular fi ltration rate.predicted panel (S/P/Bld)Ordered By: Ada Uriostegui on 06-27-2022 Creatinine [Mass/Vol] 4.86 mg/dL 0.64-1.27 [facility] Erythrocyte distribution wid th Auto (RBC) [Ratio]Ordered By: Ada Uriostegui on 06-27-2022 Erythrocyte distribution width (RBC) [Ratio] 14.0 % 12.0-14.8 [facility] Estimated glomerular filtrat ion rate (GFR) non- AmericanOrdered By: Ada Uriostegui on 06-27-2022 GFR/1.73 sq M.predicted among non-blacks MDRD (S/P/Bld) [Vol rate/Area] 13 mL/Min [facility] Ferritin [Mass/volume] in Se rum or PlasmaOrdered By: Ada Uriostegui on 06-27-2022 Ferritin [Mass/Vol] 383.6 ng/mL 23.9-336.2 [facility] Hematocrit Auto (Bld) [Volum e fraction]Ordered By: Ada Uriostegui on 06-27-2022 Hematocrit (Bld) [Volume fraction] 37.2 % 38.8-50.0 [facility] Hemoglobin [Mass/volume] in BloodOrdered By: Ada Uriostegui on 06-27-2022 Hemoglobin (Bld) [Mass/Vol] 12.1 g/dL 13.0-17.0 [facility] Iron [Mass/volume] in Serum or PlasmaOrdered By: Ada Uriostegui on 06-27-2022 Iron [Mass/Vol] 70 ug/dL 40-160 [facility] Iron binding capacity [Mass/ volume] in Serum or PlasmaOrdered By: Ada Moody on 06-27-2022 Iron binding capacity [Mass/Vol] 400 ug/dL 255-450 [facility] Iron saturation [Mass Fracti on] in Serum or PlasmaOrdered By: Ada Uriostegui on 06-27-2022 Iron saturation [Mass fraction] 17.0 % 20-50 [facility] Laboratory - Chemistry and C hemistry - challengeOrdered By: Aad Uriostegui on 06-27-2022 Magnesium [Mass/Vol] 1.9 mg/dL 1.6-2.6 [facility] MCH Auto (RBC) [Entitic mass ]Ordered By: Ada Uriostegui on 06-27-2022 MCH (RBC) [Entitic mass] 29.2 pg 27.5-35.2 [facility] MCHC Auto (RBC) [Mass/Vol]Or dered By: Ada Uriostegui on 06-27-2022 MCHC (RBC) [Mass/Vol] 32.6 g/dL 32.5-35.6 [facility] MCV Auto (RBC) [Entitic vol] Ordered By: Ada Uriostegui on 06-27-2022 MCV (RBC) [Entitic vol] 89.7 fL 83.5-101 [facility] No Panel InformationOrdered By: Ada Uriostegui on 06-27-2022 25-Hydroxy Vitamin D Total 13.3 ng/mL 30-100 [facility] Comment on above: VITAMIN D STATUS 25( [place])VITAMIN D RANGE (ng/mL) Deficient <20 Insufficient 20 to <30Sufficient 30 to 100Reference: Sophy MF,Glendy NC, Nitin RAMOS, et al. Evaluation,treatment, and prevention of vitamin D deficiency; an Endocrine Society clinical practice guideline. JCEM. 2010; 96(7):1911-30. Estimated GFR () 15 mL/Min [facility] Comment on above: GFR estimated refere nce range: According to KDOQI guidelines, <60 ml/min/1.73m2 is sufficient to diagnose a patient with chronic kidney disease. Pharmacy Creatinine Clearance (Chem N/A [facility] Phosphate [Mass/volume] in S james or PlasmaOrdered By: Ada Uriostegui on 06-27-2022 Phosphate [Mass/Vol] 4.1 mg/dL 2.5-4.6 [facility] Platelet mean volume Auto (B ld) [Entitic vol]Ordered By: Ada Uriostegui on 06-27-2022 Platelet mean volume (Bld) [Entitic vol] 7.3 fL 6.6-10.1 [facility] Platelets Auto (Bld) [#/Vol] Ordered By: Ada Uriostegui on 06-27-2022 Platelets (Bld) [#/Vol] 454 10*3/uL 150-450 [facility] RBC Auto (Bld) [#/Vol]Ordere d By: Ada Uriostegui on 06-27-2022 RBC (Bld) [#/Vol] 4.15 10*6/uL 3.90-5.60 [facility] Serum or plasma anion gap de terminationOrdered By: Ada Uriostegui on 06-27-2022 Anion gap [Moles/Vol] 15.2 mmol/L 6.0-15.0 [facility] Serum or plasma calcium shante urement (mass/volume)Ordered By: Ada Uriostegui on 06-27-2022 Calcium [Mass/Vol] 8.9 mg/dL 8.2-10.2 [facility] Serum or plasma chloride alber surement (moles/volume)Ordered By: Ada Uriostegui on 06-27-2022 Chloride [Moles/Vol] 103 mmol/L 95-114 [facility] Serum or plasma glucose shante urement (mass/volume)Ordered By: Ada Uriostegui on 06-27-2022 Glucose [Mass/Vol] 115 mg/dL 70-100 [facility] Comment on above: ADA recommended refe rence rangeRandom Glucose Reference Range is dependent on time and content of last meal. Glucose of more than 200 mg/dL in a nonstressed, ambulatory subject supports the diagnosis of Diabetes Mellitus. Serum or plasma intact parat hyroid hormone measurement (mass/volume)Ordered By: Ada Uriostegui on 06-27-2022 Parathyrin.intact [Mass/Vol] 168.5 pg/mL 12-88 [facility] Serum or plasma potassium me asurement (moles/volume)Ordered By: Ada Uriostegui on 06-27-2022 Potassium [Moles/Vol] 4.6 mmol/L 3.5-5.1 [facility] Serum or plasma sodium measu rement (moles/volume)Ordered By: Ada Uriostegui on 06-27-2022 Sodium [Moles/Vol] 137 mmol/L 136-146 [facility] Serum or plasma total carbon dioxide measurement (moles/volume)Ordered By: Ada Uriostegui on 06-27-2022 CO2 [Moles/Vol] 23.4 mmol/L 22.0-30.0 [facility] Serum or plasma urea nitroge n measurement (mass/volume)Ordered By: Ada Uriostegui on 06-27-2022 Urea nitrogen [Mass/Vol] 52 mg/dL 05-29 [facility] WBC Auto (Bld) [#/Vol]Ordere d By: Ada Uriostegui on 06-27-2022 WBC (Bld) [#/Vol] 9.4 10*3/uL 4.1-10.5 [facility] Cov[facility]-19 [facility]on 06-06 SARS-CoV-2 (COVID-19) RNA SHAY+probe Ql (Unsp spec) Not detected Normal NOT DETECTED [facility] Comment on above: Result Comment: This test is not yet approved or cleared by the [place] FDA. When there are no FDA-approved or cleared tests available, and other criteria are met, FDA can make tests available under an emergency access mechanism called an Emergency Use Authorization (EUA). The EUA for this test is supported by the Furnace Operator And Tender of Health and Human Service's (HHS's) [...] consistent with SARS-CoV-2. Performed By: #### C VDTB #### [facility] [address] [place] [address] Dr. Monroe Winn Blood hemoglobin measurement (mass/volume)Ordered By: Ada Uriostegui on 05-16-2022 Hemoglobin (Bld) [Mass/Vol] 11.2 g/dL 13.0-17.0 [facility] Body fluid albumin measureme nt (mass/volume)Ordered By: Ada Uriostegui on 05-16-2022 Albumin (Body fld) [Mass/Vol] 3.5 g/dL 3.2-5.5 [facility] CT biopsyOrdered By: Jonathan christensen on 05-16-2022 Transferrin [Mass/Vol] 300 mg/dL 180-380 [facility] Creatinine and Glomerular fi ltration rate.predicted panel (S/P/Bld)Ordered By: Ada Uriostegui on 05-16-2022 Creatinine [Mass/Vol] 5.05 mg/dL 0.64-1.27 [facility] Erythrocyte distribution wid th Auto (RBC) [Ratio]Ordered By: Ada Uriostegui on 05-16-2022 Erythrocyte distribution width (RBC) [Ratio] 13.7 % 12.0-14.8 [facility] Estimated glomerular filtrat ion rate (GFR) non- AmericanOrdered By: Ada Uriostegui on 05-16-2022 GFR/1.73 sq M.predicted among non-blacks MDRD (S/P/Bld) [Vol rate/Area] 12 mL/Min [facility] Ferritin [Mass/volume] in Se rum or PlasmaOrdered By: Ada Uriostegui on 05-16-2022 Ferritin [Mass/Vol] 447.8 ng/mL 23.9-336.2 [facility] Hematocrit Auto (Bld) [Volum e fraction]Ordered By: Ada Uriostegui on 05-16-2022 Hematocrit (Bld) [Volume fraction] 33.5 % 38.8-50.0 [facility] Iron [Mass/volume] in Serum or PlasmaOrdered By: Ada Uriostegui on 05-16-2022 Iron [Mass/Vol] 73 ug/dL 40-160 [facility] Iron binding capacity [Mass/ volume] in Serum or PlasmaOrdered By: Ada Uriostegui on 05-16-2022 Iron binding capacity [Mass/Vol] 420 ug/dL 255-450 [facility] Iron saturation [Mass Fracti on] in Serum or PlasmaOrdered By: Ada Uriostegui on 05-16-2022 Iron saturation [Mass fraction] 17.0 % 20-50 [facility] Laboratory - Chemistry and C hemistry - challengeOrdered By: Ada Uriostegui on 05-16-2022 Magnesium [Mass/Vol] 2.0 mg/dL 1.6-2.6 [facility] MCH Auto (RBC) [Entitic mass ]Ordered By: Ada Uriostegui on 05-16-2022 MCH (RBC) [Entitic mass] 29.8 pg 27.5-35.2 [facility] MCHC Auto (RBC) [Mass/Vol]Or dered By: Ada Uriostegui on 05-16-2022 MCHC (RBC) [Mass/Vol] 33.4 g/dL 32.5-35.6 [facility] MCV Auto (RBC) [Entitic vol] Ordered By: Ada Uriostegui on 05-16-2022 MCV (RBC) [Entitic vol] 89.1 fL 83.5-101 [facility] No Panel InformationOrdered By: Ada Uriostegui on 05-16-2022 25-Hydroxy Vitamin D Total 13.9 ng/mL 30-100 [facility] Comment on above: VITAMIN D [...] 2010; 96(7):1911-30. Estimated GFR () 15 mL/Min [facility] Comment on above: GFR estimated refere nce range: According to KDOQI guidelines, <60 ml/min/1.73m2 is sufficient to diagnose a patient with chronic kidney disease. Pharmacy Creatinine Clearance (Chem N/A [facility] Phosphate [Mass/volume] in S james or PlasmaOrdered By: Ada Uriostegui on 05-16-2022 Phosphate [Mass/Vol] 3.9 mg/dL 2.5-4.6 [facility] Platelet mean volume Auto (B ld) [Entitic vol]Ordered By: Ada Uriostegui on 05-16-2022 Platelet mean volume (Bld) [Entitic vol] 6.9 fL 6.6-10.1 [facility] Platelets Auto (Bld) [#/Vol] Ordered By: Ada Uriostegui on 05-16-2022 Platelets (Bld) [#/Vol] 496 10*3/uL 150-450 [facility] RBC Auto (Bld) [#/Vol]Ordere d By: Ada Uriostegui on 05-16-2022 RBC (Bld) [#/Vol] 3.76 10*6/uL 3.90-5.60 [facility] Serum or plasma anion gap de terminationOrdered By: Ada Uriostegui on 05-16-2022 Anion gap [Moles/Vol] 13.7 mmol/L 6.0-15.0 [facility] Serum or plasma calcium shante urement (mass/volume)Ordered By: Ada Uriostegui on 05-16-2022 Calcium [Mass/Vol] 9.2 mg/dL 8.2-10.2 [facility] Serum or plasma chloride alber surement (moles/volume)Ordered By: Ada Uriostegui on 05-16-2022 Chloride [Moles/Vol] 105 mmol/L 95-114 [facility] Serum or plasma glucose shante urement (mass/volume)Ordered By: Ada Uriostegui on 05-16-2022 Glucose [Mass/Vol] 177 mg/dL 70-100 [facility] Comment on above: ADA recommended refe [...] Uriostegui on 05-16-2022 Parathyrin.intact [Mass/Vol] 121.3 pg/mL [facility] Serum or plasma potassium me asurement (moles/volume)Ordered By: Ada Uriostegui on 05-16-2022 Potassium [Moles/Vol] 4.9 mmol/L 3.5-5.1 [facility] Serum or plasma sodium measu rement (moles/volume)Ordered By: Ada Uriostegui on 05-16-2022 Sodium [Moles/Vol] 137 mmol/L 136-146 [facility] Serum or plasma total carbon dioxide measurement (moles/volume)Ordered By: Ada Uriostegui on 05-16-2022 CO2 [Moles/Vol] 23.2 mmol/L 22.0-30.0 [facility] Serum or plasma urea nitroge n measurement (mass/volume)Ordered By: Ada Uriostegui on 05-16-2022 Urea nitrogen [Mass/Vol] 54 mg/dL 05-29 [facility] WBC Auto (Bld) [#/Vol]Ordere d By: Ada Uriostegui on 05-16-2022 WBC (Bld) [#/Vol] 9.8 10*3/uL 4.1-10.5 [facility] SINGLE ANTIGEN CLASS 1on METHOD Class I Single Antigen Normal [facility] Comment on above: Order Comment: Some [...] due to frequency. Performed By: #### 4 9143, 58878, 36945, 51592, 31977, 67908 #### [facility] [address] [facility] [place] [address], [facility] SPECIFICITY Normal [facility] Comment on above: Order Comment: Some [...] 34 B:76 Performed By: #### 4 1533, 83042, 07177, 11768, 67799, 63690 #### [facility] [address] SINGLE ANTIGEN CLASS 2on COMMENTS Normal [facility] Comment on above: Order Comment: Some [...] Specificites Found Performed By: #### 4 1533, 95007, 44245, 28603, 71506, 07586 #### [facility] [address] [place] [address], [facility] Result Comment: Clas s I Antigen Microbeads Potential specificites added to the watch list. METHOD Class II Single Antigen Normal [facility] Comment on above: Order Comment: Some [...] to frequency. Performed By: #### 4 1533, 40803, 24917, 11322, 39750, 21552 #### [facility] [address] SIGNED BY Normal [facility] Comment on above: Order Comment: Some [...] to frequency. Result Comment: Delano Nuno, MS,CHT(RAJESH),MT(ASCP) Stacker And Sorter Operator, Transplant Immunology Performed By: #### 4 1533, 38343, 94320, 30559, 78324, 98336 #### [facility] [address] BLOOD TYPE AND RHon 04-07-20 22 ABO INTERPRETATION A Normal [facility] Comment on above: Performed By: #### 4 1533, 71319, 11677, 86257, 73215, 65227 #### [facility] [address] [place] [address], [facility] RH INTERPRETATION Positive Normal [facility] Comment on above: Performed By: #### 4 1533, 85285, 19483, 18806, 92832, 98254 #### [facility] [address] [place] [address], [facility] BNP (B-TYPE NATRIURETIC PEPT BALTAZAR)on 04-07-2022 Natriuretic peptide B (Bld) [Mass/Vol] 32 pg/mL Normal 0-100 [facility] Comment on above: Result Comment: Give n the appropriate clinical setting a BNP result of >100 pg/mL indicates congestive heart failure. Performed By: #### 4 1533, 79076, 41596, 88327, 47321, 44446 #### [facility] [address] [facility] [place] [address], [facility] CBC W/DIFFon 04-07-2022 ABS IMM GRANS 0.1 10*3/uL Normal 0.0-0.2 [facility] Comment on above: Performed By: #### 4 1533, 93303, 66387, 27713, 88278, 57168 #### [facility] [address] [place] [address], [facility] ABS NEUTROPHILS 6.3 10*3/uL Normal 1.6-7.6 [facility] Comment on above: Performed By: #### 4 1533, 69178, 90958, 66803, 75152, 87515 #### [facility] [address] [facility] [address], [facility] Basophils (Bld) [#/Vol] 0.1 10*3/uL Normal 0.0-0.2 [facility] Comment on above: Performed By: #### 4 1533, 47007, 81104, 23000, 72906, 15054 #### [facility] [address] [place] [address], [facility] Basophils/100 WBC (Bld) 0.5 % Normal 0.0-1.0 [facility] Comment on above: Performed By: #### 4 1533, 20300, 96491, 12450, 36989, 91448 #### [facility] [address] [facility] [address], [facility] Eosinophils (Bld) [#/Vol] 0.3 10*3/uL Normal 0.0-0.5 [facility] Comment on above: Performed By: #### 4 1533, 28299, 16104, 57416, 27309, 32011 #### [facility] [address] [place] [address], [facility] Eosinophils/100 WBC (Bld) 2.5 % Normal 0.0-6.0 [facility] Comment on above: Performed By: #### 4 1533, 59107, 30480, 26155, 81864, 17192 #### [facility] [address] Erythrocyte distribution width (RBC) [Ratio] 13.2 % Normal 11.5-15.0 [facility] Comment on above: Performed By: #### 4 1533, 27057, 26880, 20648, 25426, 00642 #### [facility] [address] [place] [address], [facility] Hematocrit (Bld) [Volume fraction] 34.6 % Low 39.0-50.0 [facility] Comment on above: Performed By: #### 4 1533, 45525, 99416, 82429, 11126, 05338 #### [facility] [address] Hemoglobin (Bld) [Mass/Vol] 11.4 g/dL Low 13.0-17.0 [facility] Comment on above: Performed By: #### 4 1533, 62566, 33297, 23020, 45205, 15472 #### [facility] [address] [place] [address], [facility] IMMATURE GRANS 1.0 % Normal 0.0-1.0 [facility] Comment on above: Performed By: #### 4 1533, 14789, 96346, 66832, 59668, 71405 #### [facility] [address] [facility] [address], [facility] Lymphocytes (Bld) [#/Vol] 2.5 10*3/uL Normal 1.2-4.0 [facility] Comment on above: Performed By: #### 4 1533, 52333, 41982, 87618, 10640, 27673 #### [facility] [address] [place] [id number], [facility] Lymphocytes/100 WBC (Bld) 25.2 % Normal 20.0-45.0 [facility] Comment on above: Performed By: #### 4 1533, 20068, 39130, 26005, 69527, 62998 #### [facility] [address] [place] [address], [facility] MCH (RBC) [Entitic mass] 29.3 pg Normal 27.0-33.0 [facility] Comment on above: Performed By: #### 4 1533, 37656, 25013, 85495, 59232, 96065 #### [facility] [address] [place] [address], [facility] MCHC (RBC) [Mass/Vol] 32.9 g/dL Normal 32.0-35.0 [facility] Comment on above: Performed By: #### 4 1533, 74867, 82987, 19379, 59014, 30632 #### [facility] [address] MCV (RBC) [Entitic vol] 88.9 fL Normal 82.0-98.0 [facility] Comment on above: Performed By: #### 4 1533, 48367, 18297, 95710, 90106, 37791 #### [facility] [address] [facility] [place] [address], [facility] Monocytes (Bld) [#/Vol] 0.8 10*3/uL Normal 0.1-1.0 [facility] Comment on above: Performed By: #### 4 1533, 76043, 44476, 35272, 45279, 76346 #### [facility] [address] [facility] [place] [address], [facility] MONOS 8.3 % Normal 5.0-12.0 [facility] Comment on above: Performed By: #### 4 1533, 95421, 48741, 72865, 93777, 83747 #### [facility] [address] [place] [address], [facility] Neutrophils/100 WBC (Bld) 62.5 % Normal 40.0-72.0 [facility] Comment on above: Performed By: #### 4 1533, 90550, 94427, 37890, 16821, 87709 #### [facility] [address] [place] [id number], [facility] Nucleated RBC/100 WBC (Bld) [Ratio] 0 % Normal 0-0 [facility] Comment on above: Performed By: #### 4 1533, 19224, 01229, 87842, 68027, 97795 #### [facility] [address] [facility] [place] [address], [facility] PLAT CNT 442 10*3/uL High 150-400 [facility] Comment on above: Performed By: #### 4 1533, 61595, 28925, 14481, 71084, 89304 #### [facility] [address] [facility] [address], [facility] RBC (Bld) [#/Vol] 3.89 10*6/uL Low 4.20-5.70 [facility] Comment on above: Performed By: #### 4 1533, 42280, 11687, 79245, 08910, 67064 #### [facility] [address] [facility] [address], [facility] WBC (Bld) [#/Vol] 10.00 10*3/uL Normal 4.00-10.60 [facility] Comment on above: Performed By: #### 4 1533, 63800, 51788, 66443, 74517, 59993 #### [facility] [address] [facility] [address], [facility] CHEST AND LATERALon 04-07-20 CHEST AND LATERAL [facility] Department of Radiology [address] [place] [id number] ===== Patient Name: EVANS FORTE : 1970 [...] change. Electronically signed: Rehan Zaragoza. Transcribed by: [email or web address], User Resident: Electronically Signed by: REHAN ZARAGOZA @ 04/08/2022 07:43 AM Normal [facility] CMV IGG BLOODon 04-07-2022 CMV IGG 0.00 Normal [facility] Comment on above: Order Comment: only males 40 and older Result Comment: NORM AL RANGES: < OR = 0.9O NEGATIVE ; NO DETECTABLE IgG ANTIBODY TO CMV 0.91 - 1.09 EQUIVOCAL; REPEAT TESTING SUGGESTED > OR = 1.10 POSITIVE ; INDICATES PRESENCE OF DETECTABLE IgG ANTIBODY TO CMV Performed By: #### 4 1533, 24475, 09140, 05063, 68320, 97179 #### [facility] [address] [place] [address], [place] COMP METABOLIC PANELon 04-07 Albumin [Mass/Vol] 4.2 g/dL Normal 3.5-5.7 [facility] Comment on above: Performed By: #### 0 0121, 30914, 44255 #### [facility] [address] [place] [address], [place] ALKALINE PHOSPH 72 IU/L Normal 34-104 [facility] Comment on above: Performed By: #### 0 0121, 65473, 53560 #### [facility] [address] [place] [address], [place] ALT [Catalytic activity/Vol] 18 U/L Normal 7-52 [facility] Comment on above: Performed By: #### 0 0121, 41042, 67392 #### [facility] [address] [place] [address], [place] AST [Catalytic activity/Vol] 11 U/L Low 13-39 [facility] Comment on above: Performed By: #### 0 0121, 63388, 99526 #### [facility] [address] [place] [address], [place] Bilirubin [Mass/Vol] 0.3 mg/dL Normal 0.3-1.0 [facility] Comment on above: Performed By: #### 0 0121, 55090, 16149 #### [facility] [address] [place] [address], [place] Calcium [Mass/Vol] 10.4 mg/dL High 8.6-10.3 [facility] Comment on above: Performed By: #### 0 0121, 63057, 68583 #### [facility] [address] [place] [address], [facility] Chloride [Moles/Vol] 106 mmol/L Normal 98-107 [facility] Comment on above: Performed By: #### 0 0121, 87972, 12841 #### [facility] [address] [place] [address], [facility] CO2 [Moles/Vol] 24 mmol/L Normal 21-31 [facility] Comment on above: Performed By: #### 0 0121, 14843, 10513 #### [facility] [address] [place] [address], [facility] Creatinine [Mass/Vol] 5.07 mg/dL High 0.70-1.30 [facility] Comment on above: Performed By: #### 0 0121, 73953, 03145 #### [facility] [address] [place] [address], [facility] EGFR 13 ml/min/1.73sq m Abnormal >60 [facility] Comment on above: Result Comment: [facility]'s estimated glomerular filtration rate (eGFR) will [...] of individuals. Performed By: #### 0 0121, 70686, 75098 #### [facility] [address] [place] [address], [place] Glucose [Mass/Vol] 106 mg/dL High 70-100 [facility] Comment on above: Performed By: #### 0 0121, 98789, 37286 #### [facility] [address] [place] [address], [facility] Potassium [Moles/Vol] 4.6 mmol/L Normal 3.5-5.1 [facility] Comment on above: Performed By: #### 0 0121, 07747, 83301 #### [facility] [address] [place] [address], [place] Protein [Mass/Vol] 7.2 g/dL Normal 6.0-8.3 [facility] Comment on above: Performed By: #### 0 0121, 86686, 01345 #### [facility] [address] [place] [address], [place] Sodium [Moles/Vol] 138 mmol/L Normal 136-145 [facility] Comment on above: Performed By: #### 0 0121, 48496, 06473 #### [facility] [address] [place] [address], [facility] Urea nitrogen [Mass/Vol] 59 mg/dL High 7-25 [facility] Comment on above: Performed By: #### 0 0121, 21304, 19478 #### [facility] [address] [place] [address], [place] CREATININE URINE RANDOMon Creatinine (U) [Mass/Vol] 79.0 mg/dL Normal [facility] Comment on above: Result Comment: Ther e are no established reference values for random urine specimens Performed By: #### 4 1533, 80718, 10272, 80340, 81037, 02530 #### [facility] [address] [place] [address], [facility] CT RENAL RECIPIENT ABDOMEN A ND PEVLIS WO CONTRASTon 04-07-2022 CT RENAL RECIPIENT ABDOMEN AND PEVLIS WO CONTRAST [facility] Department of Radiology [address] [place] [id number] ===== Patient Name: EVANS FORTE : 1970 [...] arteries. Electronically signed: SAYDA GRACE. Transcribed by: [email or web address], User Resident: Electronically Signed by: SAYDA GRACE @ 04/09/2022 10:03 AM Normal [facility] Comment on above: Order Comment: Pre-k idney transplant work-up. Please evaluate vessels for kidney transplant. , Height (ft.): 6 ft 0 in , Weight (lbs): 304 DIRECT BILIon 04-07-2022 Bilirubin.direct [Mass/Vol] 0.0 mg/dL Normal 0.0-0.2 [facility] Comment on above: Performed By: #### 0 0121, 80609, 64851 #### [facility] [address] [place] [address], [facility] ELLY LORENZO VIRUS ABon 08-0 EB VCA IGG 3.86 Normal [facility] Comment on above: Order Comment: only males 40 and older Result Comment: NORM AL RANGES: < OR = 0.9O NEGATIVE ; NO DETECTABLE IgG ANTIBODY TO EBV-VCA 0.91 - 1.09 EQUIVOCAL; REPEAT TESTING SUGGESTED > OR = 1.10 POSITIVE ; INDICATES PRESENCE OF DETECTABLE IgG ANTIBODY TO EBV Performed By: #### 4 1533, 90560, 28954, 59797, 42143, 76863 #### [facility] [address] [place] [address], [facility] EB VCA IGM 0.00 Normal [facility] Comment on above: Order Comment: only males 40 and older Result Comment: NORM AL RANGES: < OR = 0.9O NEGATIVE ; NO SIGNIFICANT LEVEL OF DETECTABLE EBV-VCA IgM AB 0.91 - 1.09 EQUIVOCAL; REPEAT TESTING SUGGESTED > OR = 1.10 POSITIVE ; SIGNIFICANT LEVEL OF DETECTABLE EBV-VCA IgM AB Performed By: #### 4 1533, 65868, 50393, 48492, 81952, 92853 #### [facility] [address] [facility] [address] HEMOGLOBIN A1Con 04-07-2022 Glucose [Moles/Vol] 174 mmol/L Normal [facility] Comment on above: Performed By: #### 4 1533, 08271, 34852, 07711, 59254, 55566 #### [facility] [address] [facility]. [address] HbA1c (Bld) [Mass fraction] 7.7 % High 4.0-6.0 [facility] Comment on above: Performed By: #### 4 1533, 08304, 21435, 41546, 85049, 18766 #### [facility] [address] [facility]. [address] HEPATITIS A ANTIBODY IGMon 0 04-07-2022 HEP A AB IGM Non-Reactive Normal NONREACTIVE [facility] Comment on above: Performed By: #### 4 1533, 38853, 93980, 34617, 13651, 29011 #### [facility] [address] [facility] [address] HEPATITIS B CORE ANTIBODYon 04-07-2022 HEP B CORE AB Non-Reactive Normal NONREACTIVE [facility] Comment on above: Performed By: #### 4 1533, 31259, 47608, 29488, 05694, 73744 #### [facility] [address] [facility]. [address] HEPATITIS B SURFACE ANTIBODY QUANTon 04-07-2022 HEP B SURF AB 0.95 mIU/ml Normal [facility] Comment on above: Result Comment: INTE RPRETATION: NONREACTIVE<8.00 mIU/mL INDETERMINATE8.00 - 12.00 mIU/mL REACTIVE>12 mIU/mL Performed By: #### 4 1533, 82172, 83432, 40453, 12143, 32980 #### [facility] [address] [place] [address], [facility] HEPATITIS B SURFACE ANTIGEN QUALon 04-07-2022 HEP B SURF AG QUAL Non-Reactive Normal NONREACTIVE [facility] Comment on above: Performed By: #### 4 1533, 08212, 71610, 11848, 70870, 12893 #### [facility] [address] [place] [address], [facility] HEPATITIS C ANTIBODYon 04-07 ANTI-HCV Non-Reactive Normal NONREACTIVE [facility] Comment on above: Performed By: #### 4 1533, 71319, 92077, 30237, 92843, 78621 #### [facility] [address] [place] [address], [facility] HIV1 AND 2 COMBO 4Gon 2021 HIV COMBO Negative Normal NEGATIVE [facility] Comment on above: Performed By: #### 3 0625 #### [facility] [address] [facility] [place] [address], [facility] LIPID PROFILEon 04-07-2022 Cholesterol [Mass/Vol] 174 mg/dL Normal 120-200 [facility] Comment on above: Result Comment: CHOL ESTEROL REFERENCE RANGE: 20 YEARS AND OLDER CARDIOVASCULAR RISK Less than 200 mg/dl Low Risk 200 to 239 mg/dl Borderline Risk 240 mg/dl and greater High Risk Performed By: #### 0 0121, 44837, 58994 #### [facility] [address] [facility] [place] [address], [facility] Cholesterol in HDL [Mass/Vol] 37 mg/dL Normal 23-92 [facility] Comment on above: Result Comment: Slig ht variation in normal range could be due to gender and/or age. HDL CHOLESTEROL REFERENCE RANGE: 20 years and older Cardiovascular Risk > or =60 mg/dL Desirable 40 TO 59 mg/dL Low Risk <40 mg/dL High Risk Performed By: #### 0 0121, 37823, 75491 #### [facility] [address] [place] [address], [facility] Cholesterol in LDL [Mass/Vol] 84 mg/dL Normal 0-130 [facility] Comment on above: Result Comment: LDL IS A CALCULATION LDL IS ONLY VALID IF THE TRIG IS LESS THAN 400. Performed By: #### 0 0121, 04406, 91566 #### [facility] [address] [place] [address], [facility] Cholesterol.total/Chol esterol in HDL [Mass ratio] 4.7 {ratio} High .0-4.5 [facility] Comment on above: Performed By: #### 0 0121, 30457, 65897 #### [facility] [address] NON-HDL CHOLESTEROL 137 mg/dL Normal [facility] Comment on above: Performed By: #### 0 0121, 74560, 72949 #### [facility] [address] [facility] [address] Triglyceride [Mass/Vol] 265 mg/dL High 40-149 [facility] Comment on above: Result Comment: TRIG LYCERIDE REFERENCE RANGE: 20 YEARS AND OLDER CARDIOVASCULAR RISK LESS THAN 150 mg/dl LOW RISK 150 TO 199 mg/dl BORDERLINE RISK 200 mg/dl AND GREATER HIGH RISK Performed By: #### 0 0121, 33200, 50528 #### [facility] [address] [facility] [address] VLDL CHOL 53 mg/dL High 0-40 [facility] Comment on above: Performed By: #### 0 0121, 09155, 60404 #### [facility] [address] [facility] [address] MUMPS IGG BLDon 04-07-2022 MUMPS IGG 1.24 Normal [facility] Comment on above: Result Comment: NORM AL RANGES: < OR = 0.9O NEGATIVE ; NO DETECTABLE IgG ANTIBODY TO MUMPS 0.91 - 1.09 EQUIVOCAL; REPEAT TESTING SUGGESTED > OR = 1.10 POSITIVE ; INDICATES PRESENCE OF DETECTABLE IgG ANTIBODY TO MUMPS Performed By: #### 4 1533, 79234, 52785, 74173, 67136, 03548 #### [facility] [address] RUBELLAon 04-07-2022 RUBELLA 0.81 Normal [facility] Comment on above: Result Comment: 1.09 RAN IN TRIPLICATE NORMAL RANGES: < OR = 0.9O NEGATIVE ; NO DETECTABLE IgG ANTIBODY TO RUBELLA 0.91 - 1.09 EQUIVOCAL; REPEAT TESTING SUGGESTED > OR = 1.10 POSITIVE ; INDICATES PRESENCE OF DETECTABLE IgG ANTIBODY TO RUBELLA VIRUS Performed By: #### 4 1533, 99465, 31678, 22132, 58058, 30367 #### [facility] [address] RUBEOLA MEASLES IGGon 2021 RUBEO IGG 0.57 Normal [facility] Comment on above: Result Comment: NORM AL RANGES: < OR = 0.9O NEGATIVE ; NO DETECTABLE IgG ANTIBODY TO RUBEOLA 0.91 - 1.09 EQUIVOCAL; REPEAT TESTING SUGGESTED > OR = 1.10 POSITIVE ; INDICATES PRESENCE OF DETECTABLE IgG ANTIBODY TO RUBEOLA Performed By: #### 4 1533, 95971, 46484, 39120, 37914, 55514 #### [facility] [address] SINGLE ANTIGEN CLASS 1on METHOD Class I Single Antigen Normal [facility] Comment on above: Order Comment: Some [...] to frequency. Performed By: #### 4 1533, 14274, 10576, 42936, 71917, 61459 #### [facility] [address] [place] [address], [facility] SINGLE ANTIGEN CLASS 2on COMMENTS Normal [facility] Comment on above: Order Comment: Some [...] watch list. Performed By: #### 4 1533, 31093, 66191, 67902, 00732, 03631 #### [facility] [address] [facility] [place] [address], [facility] Result Comment: Clas s I Antigen Microbeads Potential specificites added to the watch list. CPRA 0 Normal [facility] Comment on above: Order Comment: Some [...] to frequency. Performed By: #### 4 1533, 54295, 11852, 33116, 08074, 30681 #### [facility] [address] [place] [address], [place] METHOD Class II Single Antigen Normal [facility] Comment on above: Order Comment: Some [...] to frequency. Performed By: #### 4 1533, 90726, 84576, 08185, 37447, 38279 #### [facility] [address] SIGNED BY Normal [facility] Comment on above: Order Comment: Some [...] to frequency. Result Comment: Delano Nuno, MS,CHT(RAJESH),MT(ASCP) Stacker And Sorter Operator, Transplant Immunology Performed By: #### 4 1533, 60101, 39556, 36626, 55922, 58015 #### [facility] [address] T PROT UR Ryne 04-07-2022 U TOTAL PROTEIN 336.4 mg/dL Normal [facility] Comment on above: Result Comment: Ther e are no established reference values for random urine specimens Performed By: #### 4 1533, 17637, 66302, 40025, 19360, 76319 #### [facility] [address] [facility]. [address] TB QUANTIFERON PLUSon 2021 MITOGEN MINUS NIL >10.00 Normal [facility] Comment on above: Performed By: #### 4 1533, 95557, 52063, 81180, 15022, 47198 #### [facility] [address] NIL 0.02 IU/mL Normal [facility] Comment on above: Performed By: #### 4 1533, 95352, 13499, 46907, 43563, 44491 #### [facility] [address] [place] [address], [facility] TB QUANTIFERON Negative Normal NEGATIVE [facility] Comment on above: Result Comment: Shawn tiferon TB Gold Interpretation (IU/mL): NEGATIVE: M. tuberculosis infection not likely. Nil: <=8.0 TB1 Antigen minus Nil ([id number]): <0.35 OR >=0.35; and <25% of Nil value. TB2 Antigen minus Nil (CK9PL-OBF): <0.35 OR >=0.35; and <25% of Nil [...] LTBI (https://www.cdc.gov/tb/publications/guidlines/default.htm Performed By: #### 4 1533, 97061, 45285, 57085, 82434, 96787 #### [facility] [address] [facility] [address], [facility] TB1 AG 0.05 IU/mL Normal [facility] Comment on above: Performed By: #### 4 1533, 52557, 37159, 13884, 92353, 85305 #### [facility] [address] [facility] [place] [address], [facility] TB1 AG MINUS NIL 0.03 IU/mL Normal [facility] Comment on above: Performed By: #### 4 1533, 02880, 17655, 89360, 28116, 53991 #### [facility] [address] [facility] [address], [facility] TB2 AG 0.04 IU/mL Normal [facility] Comment on above: Performed By: #### 4 1533, 96935, 34109, 38271, 92424, 06188 #### [facility] [address] [facility] [place] [address], [facility] TB2 AG MINUS NIL 0.02 IU/mL Normal [facility] Comment on above: Performed By: #### 4 1533, 49913, 27357, 75894, 56788, 44614 #### [facility] [address] [place] [address], [place] TESTOSTERONE, FREE+SHBG+TOTA L ILon 04-07-2022 [place] Normal [facility] Comment on above: Result Comment: Test Performed by [facility] [place] [address] - Released 04/08/2022 09:48 SEX HORM BIND GLOB 23 nmol/L Normal 11-80 [facility] Testosterone [Mass/Vol] 178 ng/dL Low 220-1000 [facility] TESTOSTERONE, FREE 40.8 pg/mL Low 47-244 [facility] Comment on above: Result Comment: The concentration of free testosterone is derived from a mathematical expression based on the constant for the binding of testosterone to albumin and/or sex hormone binding globulin. UA,MICROSCOPIC REQUIREDon Appearance (U) CLEAR Normal CLEAR [facility] Comment on above: Performed By: #### 4 1533, 42977, 86303, 38790, 02685, 50086 #### [facility] [address] [facility] [place] [address], [facility] Bilirubin Ql (U) Negative Normal NEGATIVE [facility] Comment on above: Performed By: #### 4 1533, 58528, 43342, 01700, 21165, 75396 #### [facility] [address] [place] [address], [place] Color (U) YELLOW Normal YELLOW [facility] Comment on above: Performed By: #### 4 1533, 54977, 86072, 91672, 19150, 88222 #### [facility] [address] [place] [address], [place] EPIS OCC Normal FEW,OCC,NONE SEEN [facility] Comment on above: Performed By: #### 4 1533, 68197, 74226, 93149, 87469, 11591 #### [facility] [address] [place] [address], [facility] Glucose Ql (U) 250 mg/dL Abnormal NEGATIVE [facility] Comment on above: Performed By: #### 4 1533, 28372, 55426, 90591, 07458, 56296 #### [facility] [address] [place] [address], [facility] Hemoglobin Ql (U) TRACE Abnormal NEGATIVE [facility] Comment on above: Performed By: #### 4 1533, 29527, 60766, 58291, 54807, 60506 #### [facility] [address] [facility] [place] [address], [facility] KETONE Negative Normal NEGATIVE [facility] Comment on above: Performed By: #### 4 1533, 73931, 02813, 25921, 40171, 62128 #### [facility] [address] [place] [address], [facility] LEUK AGNES Negative Normal NEGATIVE [facility] Comment on above: Performed By: #### 4 1533, 50989, 87846, 14693, 67835, 60076 #### [facility] [address] [facility] [place] [address], [facility] Nitrite Ql (U) Negative Normal NEGATIVE [facility] Comment on above: Performed By: #### 4 1533, 91974, 32854, 82312, 58832, 57331 #### [facility] [address] [place] [address], [facility] pH (U) 5.5 [pH] Normal 5.0-8.0 [facility] Comment on above: Performed By: #### 4 1533, 80178, 95355, 70371, 54508, 62589 #### [facility] [address] [place] [address], [facility] Protein Ql (U) 100 Abnormal NEGATIVE [facility] Comment on above: Performed By: #### 4 1533, 47053, 79701, 76467, 39991, 42099 #### [facility] [address] [place] [address], [facility] RBC 0-2 Abnormal NONE SEEN [facility] Comment on above: Performed By: #### 4 1533, 29122, 04076, 36506, 57875, 79803 #### [facility] [address] SPEC GRAV 1.020 Normal 1.015-1.020 [facility] Comment on above: Performed By: #### 4 1533, 51718, 17674, 57314, 66562, 83393 #### [facility] [address] [place] [address], [facility] WBC UA 0-2 Abnormal NONE SEEN [facility] Comment on above: Performed By: #### 4 1533, 74821, 38796, 76247, 46300, 83411 #### [facility] [address] VARICELLA ZOSTER IGGon 04-07 VARICELLA IGG 1.40 Normal [facility] Comment on above: Result Comment: NORM AL RANGES: < OR = 0.9O NEGATIVE ; NO DETECTABLE IgG ANTIBODY TO VARICELLA-ZOSTER VIRUS 0.91 - 1.09 EQUIVOCAL; REPEAT TESTING SUGGESTED > OR = 1.10 POSITIVE ; INDICATES PRESENCE OF DETECTABLE IgG ANTIBODY TO VARICELLA-ZOSTER VIRUS Performed By: #### 4 1533, 18370, 91666, 55958, 96331, 74853 #### [facility] [address] [place] [address], [facility] Albumin [Mass/volume] in Ser um or PlasmaOrdered By: Ada Uriostegui on 02-20-2022 Albumin [Mass/Vol] 3.4 g/dL 3.2-5.5 [facility] Automated erythrocytes count in urine sediment (number/area)Ordered By: Ada Uriostegui on 06-17-2022 RBC Auto (Urine sed) [#/Area] 1-2 [HPF] 0-4 [facility] Automated leukocytes count i n urine sediment (number/area)Ordered By: Ada Uriostegui on 02-20-2022 WBC Auto (Urine sed) [#/Area] 0-1 [HPF] 0-4 [facility] Bilirubin Test strip Ql (U)O rdered By: Ada Uriostegui on 02-20-2022 Bilirubin Ql (U) Negative Negative [facility] Blood hemoglobin measurement (mass/volume)Ordered By: Ada Uriostegui on 02-20-2022 Hemoglobin (Bld) [Mass/Vol] 11.1 g/dL 13.0-17.0 [facility] CT biopsyOrdered By: Jonathan christensen on 02-20-2022 Transferrin [Mass/Vol] 284 mg/dL 180-380 [facility] Color Auto (U)Ordered By: Ab akhil Uriostegui on 02-20-2022 Color (U) Yellow Yellow [facility] Creatinine [Mass/volume] in UrineOrdered By: Ada Uriostegui on 02-20-2022 Creatinine (U) [Mass/Vol] 73.3 mg/dL [facility] Comment on above: No reference range e stablished Creatinine and Glomerular fi ltration rate.predicted panel (S/P/Bld)Ordered By: Ada Uriostegui on 02-20-2022 Creatinine [Mass/Vol] 4.65 mg/dL 0.64-1.27 [facility] Erythrocyte distribution wid th Auto (RBC) [Ratio]Ordered By: Ada Uriostegui on 02-20-2022 Erythrocyte distribution width (RBC) [Ratio] 13.9 % 12.0-14.8 [facility] Estimated glomerular filtrat ion rate (GFR) non- AmericanOrdered By: Ada Uriostegui on 02-20-2022 GFR/1.73 sq M.predicted among non-blacks MDRD (S/P/Bld) [Vol rate/Area] 13 mL/Min [facility] Ferritin [Mass/volume] in Se rum or PlasmaOrdered By: Ada Uriostegui on 02-20-2022 Ferritin [Mass/Vol] 471.8 ng/mL 23.9-336.2 [facility] Hematocrit Auto (Bld) [Volum e fraction]Ordered By: Ada Uriostegui on 02-20-2022 Hematocrit (Bld) [Volume fraction] 32.9 % 38.8-50.0 [facility] Iron [Mass/volume] in Serum or PlasmaOrdered By: Ada Uriostegui on 02-20-2022 Iron [Mass/Vol] 74 ug/dL 40-160 [facility] Iron binding capacity [Mass/ volume] in Serum or PlasmaOrdered By: Ada Uriostegui on 02-20-2022 Iron binding capacity [Mass/Vol] 398 ug/dL 255-450 [facility] Iron saturation [Mass Fracti on] in Serum or PlasmaOrdered By: Ada Uriostegui on 02-20-2022 Iron saturation [Mass fraction] 18.0 % 20-50 [facility] Ketones Auto test strip (U) [Mass/Vol]Ordered By: Ada Uriostegui on 02-20-2022 Ketones (U) [Mass/Vol] Negative Negative [facility] Laboratory - Chemistry and C hemistry - challengeOrdered By: Ada Uriostegui on 02-20-2022 Magnesium [Mass/Vol] 1.9 mg/dL 1.6-2.6 [facility] Laboratory - UrinalysisOrder ed By: Ada Uriostegui on 02-20-2022 Hyaline casts LM Ql (Urine sed) 0-8 [LPF] 0-8 [facility] MCH Auto (RBC) [Entitic mass ]Ordered By: Ada Uriostegui on 02-20-2022 MCH (RBC) [Entitic mass] 30.5 pg 27.5-35.2 [facility] MCHC Auto (RBC) [Mass/Vol]Or dered By: Ada Uriostegui on 02-20-2022 MCHC (RBC) [Mass/Vol] 33.8 g/dL 32.5-35.6 [facility] MCV Auto (RBC) [Entitic vol] Ordered By: Ada Uriostegui on 02-20-2022 MCV (RBC) [Entitic vol] 90.2 fL 83.5-101 [facility] Nitrite Test strip Ql (U)Ord ered By: Ada Uriostegui on 02-20-2022 Nitrite Ql (U) Negative Negative [facility] No Panel InformationOrdered By: Ada Uriostegui on 02-20-2022 25-Hydroxy Vitamin D Total 13.8 ng/mL 30-100 [facility] Comment on above: VITAMIN D STATUS 25( [place])VITAMIN D RANGE (ng/mL) Deficient <20 Insufficient 20 to <30 Sufficient 30 to 100 Reference: Sophy MF,Glendy BARTH, Nitin RAMOS, et al. Evaluation,treatment, and prevention of vitamin D deficiency; an Endocrine Society clinical practice guideline. JCEM. 2010; 96(7):1911-30. Estimated GFR () 16 mL/Min [facility] Comment on above: GFR estimated refere nce range: According to KDOQI guidelines, <60 ml/min/1.73m2 is sufficient to diagnose a patient with chronic kidney disease. Pharmacy Creatinine Clearance (Chem N/A [facility] Phosphate [Mass/volume] in S james or PlasmaOrdered By: Ada Uriostegui on 02-20-2022 Phosphate [Mass/Vol] 4.2 mg/dL 2.5-4.6 [facility] Platelet mean volume Auto (B ld) [Entitic vol]Ordered By: Ada Uriostegui on 02-20-2022 Platelet mean volume (Bld) [Entitic vol] 7.4 fL 6.6-10.1 [facility] Platelets Auto (Bld) [#/Vol] Ordered By: Ada Uriostegui on 02-20-2022 Platelets (Bld) [#/Vol] 497 10*3/uL 150-450 [facility] Protein Auto test strip (U) [Mass/Vol]Ordered By: Ada Uriostegui on 02-20-2022 Protein (U) [Mass/Vol] 300 mg/dL Negative [facility] Protein [Mass/volume] in Uri neOrdered By: Ada Uriostegui on 02-20-2022 Protein (U) [Mass/Vol] 303 mg/dL 0-9 [facility] RBC Auto (Bld) [#/Vol]Ordere d By: Ada Uriostegui on 02-20-2022 RBC (Bld) [#/Vol] 3.64 10*6/uL 3.90-5.60 [facility] Serum or plasma calcium shante urement (mass/volume)Ordered By: Ada Uriostegui on 02-20-2022 Calcium [Mass/Vol] 8.8 mg/dL 8.2-10.2 [facility] Serum or plasma chloride alber surement (moles/volume)Ordered By: Ada Uriostegui on 02-20-2022 Chloride [Moles/Vol] 106 mmol/L 95-114 [facility] Serum or plasma glucose shante urement (mass/volume)Ordered By: Ada Uriostegui on 02-20-2022 Glucose [Mass/Vol] 65 mg/dL 70-100 [facility] Comment on above: ADA recommended refe rence range Random Glucose Reference Range is dependent on time and content of last meal. Glucose of more than 200 mg/dL in a nonstressed, ambulatory subject supports the diagnosis of Diabetes Mellitus. Serum or plasma intact parat hyroid hormone measurement (mass/volume)Ordered By: Ada Uriostegui on 02-20-2022 Parathyrin.intact [Mass/Vol] 251.7 pg/mL [facility] Serum or plasma potassium me asurement (moles/volume)Ordered By: Ada Uriostegui on 02-20-2022 Potassium [Moles/Vol] 4.7 mmol/L 3.5-5.1 [facility] Serum or plasma sodium measu rement (moles/volume)Ordered By: Ada Uriostegui on 02-20-2022 Sodium [Moles/Vol] 141 mmol/L 136-146 [facility] Serum or plasma total carbon dioxide measurement (moles/volume)Ordered By: Ada Uriostegui on 02-20-2022 CO2 [Moles/Vol] 24.3 mmol/L 22.0-30.0 [facility] Serum or plasma urea nitroge n measurement (mass/volume)Ordered By: Ada Uriostegui on 02-20-2022 Urea nitrogen [Mass/Vol] 51 mg/dL 9- [facility] Serum or plasma uric acid me asurement (mass/volume)Ordered By: Ada Urisotegui on 02-20-2022 Urate [Mass/Vol] 6.6 mg/dL 2.6-7.2 [facility] Specific gravity Auto test s trip (U) [Rel density]Ordered By: Ada Uriostegui on 02-20-2022 Specific gravity (U) [Rel density] 1.013 1.001-1.030 [facility] Squamous epithelial cells de tection in urine sediment by light microscopyOrdered By: Ada Uriostegui on 02-20-2022 Epithelial cells.squamous LM Ql (Urine sed) 0-1 [HPF] 0-2 [facility] Urine bacteria detection by automated methodOrdered By: Ada Uriostegui on 02-20-2022 Bacteria Auto Ql (U) None seen None Seen [facility] Urine clarity by refractomet ry automatedOrdered By: Ada Uriostegui on 02-20-2022 Clarity Refractometry automated (U) Clear Clear [facility] Urine glucose measurement by automated test strip (mass/volume)Ordered By: Ada Uriostegui on 02-20-2022 Glucose Auto test strip (U) [Mass/Vol] Normal mg/dL Normal [facility] Urine hemoglobin detection b y automated test stripOrdered By: Ada Uriostegui on 02-20-2022 Hemoglobin Auto test strip Ql (U) Trace Negative [facility] Urine leukocyte esterase det ection by automated test stripOrdered By: Ada Uriostegui on 02-20-2022 Leukocyte esterase Auto test strip Ql (U) Negative Negative [facility] Urine protein/creatinine rat ioOrdered By: Ada Uriostegui on 02-20-2022 Protein/Creatinine (U) [Ratio] 4134 mg/g{Cre} 0-200 [facility] Urobilinogen Auto test strip (U) [Mass/Vol]Ordered By: Ada Uriostegui on 02-20-2022 Urobilinogen (U) [Mass/Vol] Normal mg/dL Normal [facility] WBC Auto (Bld) [#/Vol]Ordere d By: Ada Uriostegui on 02-20-2022 WBC (Bld) [#/Vol] 9.6 10*3/uL 4.1-10.5 [facility] pH Auto test strip (U)Ordere d By: Ada Uriostegui on 02-20-2022 pH (U) 5.5 [pH] 5.0-9.0 [facility] C-Reactive Proteinon 022 CRP IV 3.4 mg/dl Normal <5.0 [facility] Director Of Sports Medicine Comment on above: Performed By: #### C BCAD, CMP, ESR, CRP #### [facility] [address], [place] [id number] Complete Blood Count with Au to Diffon 10-23-2021 Basophils (Bld) [#/Vol] 0.08 10*3/uL Normal 0.00-0.20 [facility] Director Of Sports Medicine Comment on above: Performed By: #### C BCAD, CMP, ESR, CRP #### [facility] [address], [place] [id number] Basophils/100 WBC (Bld) 0.4 % Normal [facility] Specialist Comment on above: Performed By: #### C BCAD, CMP, ESR, CRP #### [facility] [address], [place] [id number] Eosinophils (Bld) [#/Vol] 0.34 10*3/uL Normal 0.02-0.50 [facility] Director Of Sports Medicine Comment on above: Performed By: #### C BCAD, CMP, ESR, CRP #### [facility] [address], [place] [id number] Eosinophils/100 WBC (Bld) 1.8 % Normal [facility] Director Of Sports Medicine Comment on above: Performed By: #### C BCAD, CMP, ESR, CRP #### [facility] [address], [place] [id number] Erythrocyte distribution width (RBC) [Ratio] 12.9 % Normal 11.0-15.0 [facility] Director Of Sports Medicine Comment on above: Performed By: #### C BCAD, CMP, ESR, CRP #### [facility] [address], [place] [id number] Hematocrit (Bld) [Volume fraction] 38.4 % Low 38.5-50.0 [place] Director Of Sports Medicine Comment on above: Performed By: #### C BCAD, CMP, ESR, CRP #### [facility] [address] [place], [place] [id number] Hemoglobin (Bld) [Mass/Vol] 12.2 g/dL Low 13.0-17.1 [facility] Comment on above: Performed By: #### C BCAD, CMP, ESR, CRP #### [facility] [address] [place], [place] [id number] Lymphocytes (Bld) [#/Vol] 1.9 10*3/uL Normal 0.9-3.9 [facility] Comment on above: Performed By: #### C BCAD, CMP, ESR, CRP #### [facility] [address] [place], [place] [id number] Lymphocytes/100 WBC (Bld) 10.1 % Normal [facility] Comment on above: Performed By: #### C BCAD, CMP, ESR, CRP #### [facility] [address] [place], [place] [id number] MCH (RBC) [Entitic mass] 28.8 pg Normal 27.0-33.0 [facility] Comment on above: Performed By: #### C BCAD, CMP, ESR, CRP #### [facility] [address] [place], [place] [id number] MCHC (RBC) [Mass/Vol] 31.8 g/dL Low 32.0-36.0 [facility] Comment on above: Performed By: #### C BCAD, CMP, ESR, CRP #### [facility] [address] [place], [place] [id number] MCV (RBC) [Entitic vol] 91 fL Normal 80-100 [facility] Comment on above: Performed By: #### C BCAD, CMP, ESR, CRP #### [facility] [address] [place], [place] [id number] Monocytes (Bld) [#/Vol] 1.2 10*3/uL High 0.2-0.9 [facility] Comment on above: Performed By: #### C BCAD, CMP, ESR, CRP #### [facility] [address] [place], [place] [id number] Monocytes/100 WBC (Bld) 6.3 % Normal [facility] Comment on above: Performed By: #### C BCAD, CMP, ESR, CRP #### [facility] [address] [place], [place] [id number] Neutrophils (Bld) [#/Vol] 15.0 10*3/uL High 1.5-7.8 [facility] Comment on above: Performed By: #### C BCAD, CMP, ESR, CRP #### [facility] [address] [place], [place] [id number] Neutrophils/100 WBC (Bld) 80.6 % Normal [facility] Comment on above: Performed By: #### C BCAD, CMP, ESR, CRP #### [facility] [address] [place], [place] [id number] Platelet mean volume (Bld) [Entitic vol] 8.80 fL Normal 7.50-12.50 [facility] Comment on above: Performed By: #### C BCAD, CMP, ESR, CRP #### [facility] [address] [place], [place] [id number] Platelets (Bld) [#/Vol] 586 10*3/uL High 140-400 [facility] Comment on above: Performed By: #### C BCAD, CMP, ESR, CRP #### [facility] [address] [place], [place] [id number] RBC (Bld) [#/Vol] 4.23 10*6/uL Normal 4.20-5.[address] [facility] Comment on above: Performed By: #### C BCAD, CMP, ESR, CRP #### [facility] [address] [place], [place] [id number] RDW-SD 42.6 fL Normal 37.0-50.0 [facility] Comment on above: Performed By: #### C BCAD, CMP, ESR, CRP #### [facility] [address] [place], [place] [id number] WBC (Bld) [#/Vol] 18.7 10*3/uL High 3.8-11.[address] [facility] Comment on above: Performed By: #### C BCAD, CMP, ESR, CRP #### [facility] [address] [place], [place] [id number] Comprehensive Metabolic Pane nick 10-23-2021 Albumin [Mass/Vol] 4.5 g/dL Normal 3.6-5.1 [facility] Comment on above: Performed By: #### C BCAD, CMP, ESR, CRP #### [facility] [address] [place], [place] [id number] Albumin/Globulin [Mass ratio] 1.3 {ratio} Normal 1.0-2.5 [facility] Comment on above: Performed By: #### C BCAD, CMP, ESR, CRP #### [facility] [address] [place], [place] [id number] ALP [Catalytic activity/Vol] 87 U/L Normal 40-129 [facility] Comment on above: Performed By: #### C BCAD, CMP, ESR, CRP #### [facility] [address] [place], [place] [id number] ALT [Catalytic activity/Vol] 23 U/L Normal 9-46 [facility] Comment on above: Result Comment: 08/06 Female reference range changed. Performed By: #### C BCAD, CMP, ESR, CRP #### [facility] [address] [place], [place] [id number] Anion gap [Moles/Vol] 23 mmol/L High 12-20 [facility] Comment on above: Result Comment: Effe ctive 09/11/2019 reference range changed. Performed By: #### C BCAD, CMP, ESR, CRP #### [facility] [address] [place], [place] [id number] AST [Catalytic activity/Vol] 20 U/L Normal 10-40 [facility] Comment on above: Performed By: #### C BCAD, CMP, ESR, CRP #### [facility] [address] [place], [place] [id number] BUN/CREA 15 Ratio Normal 6-22 [facility] Special[facility] Comment on above: Performed By: #### C BCAD, CMP, ESR, CRP #### [facility] [address] [place], [place] [id number] Calcium [Mass/Vol] 9.6 mg/dL Normal 8.6-10.2 Юлия chavez [place] [facility] Comment on above: Performed By: #### C BCAD, CMP, ESR, CRP #### [facility] [address] [place], [place] [id number] Chloride [Moles/Vol] 102 mmol/L Normal 98-107 [facility] Comment on above: Performed By: #### C BCAD, CMP, ESR, CRP #### [facility] [address] [place], [place] [id number] CO2 [Moles/Vol] 18 mmol/L Low 20-31 [facility] Comment on above: Performed By: #### C BCAD, CMP, ESR, CRP #### [facility] [address] [place], [place] [id number] Creatinine [Mass/Vol] 4.5 mg/dL High 0.7-1.4 [facility] Specialist Comment on above: Performed By: #### C BCAD, CMP, ESR, CRP #### [facility] [address] [place], [place] [id number] eGFRAA 17 mL/min/1.73m2 Low >60 [facility] Comment on above: Performed By: #### C BCAD, CMP, ESR, CRP #### [facility] [address] [place], [place] [id number] eGFRNAA 14 mL/min/1.73m2 Low >60 [facility] Special[facility] Comment on above: Performed By: #### C BCAD, CMP, ESR, CRP #### [facility] [address] [place], [place] [id number] Globulin (S) [Mass/Vol] 3.5 g/dL Normal 1.9-3.7 [facility] Comment on above: Performed By: #### C BCAD, CMP, ESR, CRP #### [facility] [address] [place], [place] [id number] Glucose [Mass/Vol] 62 mg/dL Low 65-99 Юлия chavez [place] Director Of [facility] Medicine Comment on above: Result Comment: For FASTING Glucose --- ADA reference ranges: Normal 65-99 mg/dl Prediabetes 100-125 Diabetes >/= 126 Performed By: #### C BCAD, CMP, ESR, CRP #### [facility] [address] [place], [place] [id number] Potassium [Moles/Vol] 4.7 mmol/L Normal 3.5-5.5 [facility] Comment on above: Performed By: #### C BCAD, CMP, ESR, CRP #### [facility] [address] [place], [place] [id number] Protein [Mass/Vol] 8.0 g/dL Normal 6.1-8.1 Юлия chavez [place] Director [facility] Comment on above: Performed By: #### C BCAD, CMP, ESR, CRP #### [facility] [address] [place], [place] [id number] Sodium [Moles/Vol] 139 mmol/L Normal 135-146 Юлия chavez [place] Director [facility] Comment on above: Performed By: #### C BCAD, CMP, ESR, CRP #### [facility] [address] [place], [place] [id number] TBIL <0.3 Normal [facility] Comment on above: Performed By: #### C BCAD, CMP, ESR, CRP #### [facility] [address] [place], [place] [id number] Urea nitrogen [Mass/Vol] 66 mg/dL High 7-25 [facility] Special[facility] Comment on above: Performed By: #### C BCAD, CMP, ESR, CRP #### [facility] [address] [place], [place] [id number] RBC Sedimentation Rateon ESR (Bld) [Velocity] 118.00 mm/h High 0.00-20.00 [facility] Specialist Comment on above: Performed By: #### C BCAD, CMP, ESR, CRP #### [facility] [address] [place], [place] [id number] CNCOon 04-02-2020 CNCO Letter Text Normal [facility] PROGRESSon 06-20-2019 PROGRESS HNO ID: [id number] Author: Dc (Rn) JACOB Mistry Service: ? Author Type: Registered Nurse Type: Progress Notes Filed: 06/20/2019 7:28 AM Note Text: On intake, patient admits to chewing tobacco. Will need to quit. New Referral Referring Physician Dr. Ada Uriostegui Organ Type kidney ESRD No. Cause: DM Dialysis Dependant? [place] [facility] Facility: n/a Diabetes Yes. 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 No. Facility: n/a Willing to accept blood transfusion? Yes Potential Living Donor? Yes Full transplant evaluation? Yes Nephrology Screen Required? No If yes to nephrology screen, reason: n/a Dc Mistry RN Pre-Kidney AND Pancreas Time Study Technologist [facility] Normal [facility] Vital Signs Date Time Vital Sign Value Performing Clinician Facility 05-10-2025 13:06-0400 Body height 188 cm Kaylee JONES Work Phone: [facility] 05-10-2025 13:06-0400 Body mass index (BMI) [Ratio] 42.24 kg/m2 Kaylee JONES Work Phone: [facility] 05-10-2025 13:06-0400 Body weight 149.23 kg Kaylee JONES Work Phone: [facility] 05-10-2025 13:06-0400 Diastolic blood pressure 104 mm[Hg] [facility] Comment on above: patient states this is his normal BP a nd he didn't take his meds today 05-10-2025 13:06-0400 Heart rate 73 /min Kaylee JONES Work Phone: [facility] 05-10-2025 13:06-0400 Respiratory rate 20 /min Kaylee JONES Work Phone: [facility] 05-10-2025 13:06-0400 SaO2% (BldA) [Mass fraction] 99 % Kaylee JONES Work Phone: [facility] 05-10-2025 13:06-0400 Systolic blood pressure 204 mm[Hg] [facility]lee [facility]ES [facility] Comment on above: patient states this is his normal BP a nd he didn't take his meds today 04-26-2025 13:25-0400 Body temperature 98.29 [degF] [facility] 04-26-2025 13:25-0400 Diastolic blood pressure 62 mm[Hg] [facility] 04-26-2025 13:25-0400 Heart rate 85 /min [facility] 04-26-2025 13:25-0400 Respiratory rate 16 /min [facility] 04-26-2025 13:25-0400 SaO2% (BldA) [Mass fraction] 97 % [facility] 04-26-2025 13:25-0400 Systolic blood pressure 173 mm[Hg] [facility] 04-24-2025 09:11-0400 Diastolic blood pressure 82 mm[Hg] Idania Petznick DO Work Phone: [facility] 04-24-2025 09:11-0400 Systolic blood pressure 160 mm[Hg] Idania Petznick DO Work Phone: [facility] 04-24-2025 08:49-0400 Body height 187.96 cm Idania Petznick DO Work Phone: [facility] 04-24-2025 08:49-0400 Body temperature 97.8 [degF] Idania Petznick DO Work Phone: [facility] 04-24-2025 08:49-0400 Body weight 152 kg Idania Petznick DO Work Phone: [facility] 04-24-2025 08:49-0400 Heart rate 69 /min Idania Petznick DO Work Phone: [facility] 04-24-2025 08:49-0400 Respiratory rate 18 /min Idania Petznick DO Work Phone: [facility] 04-24-2025 08:49-0400 SaO2% (BldA) [Mass fraction] 99 % Idania Petznick DO Work Phone: [facility] 04-05-2025 09:40-0400 Body height 188 cm Kaylee Loganjeffrey PA Work Phone: [facility] 04-05-2025 09:40-0400 Body mass index (BMI) [Ratio] 43.14 kg/m2 Kaylee Loganjeffrey PA Work Phone: [facility] 04-05-2025 09:40-0400 Body weight 152.41 kg Kaylee Loganjeffrey PA Work Phone: [facility] 04-05-2025 09:40-0400 Diastolic blood pressure 91 mm[Hg] Kaylee Loganenberg PA Work Phone: [facility] Comment on above: just took am meds 04-05-2025 09:40-0400 Heart rate 69 /min Kaylee Loganjeffrey PA Work Phone: [facility] 04-05-2025 09:40-0400 Respiratory rate 18 /min Kaylee Loganjeffrey PA Work Phone: [facility] 04-05-2025 09:40-0400 SaO2% (BldA) [Mass fraction] 98 % Kaylee Loganjeffrey PA Work Phone: [facility] 04-05-2025 09:40-0400 Systolic blood pressure 204 mm[Hg] Kaylee Loganenberg PA Work Phone: [facility] Comment on above: just took am meds 03-26-2025 12:30-0400 Diastolic blood pressure 85 mm[Hg] Idania Petznick DO Work Phone: [facility] 03-26-2025 12:30-0400 Heart rate 75 /min Idania Petznick DO Work Phone: [facility] 03-26-2025 12:30-0400 Respiratory rate 20 /min Idania Petznick DO Work Phone: [facility] 03-26-2025 12:30-0400 SaO2% (BldA) [Mass fraction] 98 % Idania Petznick DO Work Phone: 1(656)295-925940 [address] 03-26-2025 12:30-0400 Systolic blood pressure 197 mm[Hg] Idania Petznick DO Work Phone: 1(183)862-119605 [place] [address] 03-26-2025 08:31-0400 Body height 187.96 cm Idania Petznick DO Work Phone: 2(328)677-080705 [place] [address] 03-26-2025 08:31-0400 Body temperature 98 [degF] Idania Petznick DO Work Phone: 7(788)357-061905 [place] [address] 03-26-2025 08:31-0400 Body weight 150 kg Idania Petznick DO Work Phone: 4(684)443-310305 [place] [address] 03-11-2025 11:25-0400 Diastolic blood pressure 99 mm[Hg] Idania Petznick DO Work Phone: 6(313)192-157905 [place] [address] 03-11-2025 11:25-0400 Heart rate 76 /min Idania Petznick DO Work Phone: 8(428)443-346005 [place] [address] 03-11-2025 11:25-0400 Respiratory rate 20 /min Idania Petznick DO Work Phone: 9(368)397-515205 [place] [address] 03-11-2025 11:25-0400 SaO2% (BldA) [Mass fraction] 100 % Idania Petznick DO Work Phone: 2(895)009-512205 [place] [address] 03-11-2025 11:25-0400 Systolic blood pressure 176 mm[Hg] Idania Petznick DO Work Phone: 0(432)267-173805 [place] [address] 03-11-2025 10:29-0400 Body height 187.96 cm Idania Petznick DO Work Phone: 5(294)527-837505 [place] [address] 03-11-2025 10:29-0400 Body temperature 97.7 [degF] Idania Petznick DO Work Phone: 3(295)567-788105 [place] [address] 03-11-2025 10:29-0400 Body weight 145.1 kg Idania Petznick DO Work Phone: 7(828)496-337305 [place] [address] 03-07-2025 15:50-0400 Diastolic blood pressure 86 mm[Hg] Idania Petznick DO Work Phone: [facility] 03-07-2025 15:50-0400 Heart rate 67 /min Idania Petznick DO Work Phone: [facility] 03-07-2025 15:50-0400 SaO2% (BldA) [Mass fraction] 98 % Idania Petznick DO Work Phone: [facility] 03-07-2025 15:50-0400 Systolic blood pressure 158 mm[Hg] Idania Petznick DO Work Phone: [facility] 02-13-2025 08:38-0400 Body height 187.96 cm Idania Petznick DO Work Phone: [facility] 02-13-2025 08:38-0400 Body mass index (BMI) [Ratio] 41.4 kg/m2 Idania Petznick DO Work Phone: [facility] 02-13-2025 08:38-0400 Body weight 146.51 kg Idania Petznick DO Work Phone: [facility] 02-13-2025 08:38-0400 Diastolic blood pressure 80 mm[Hg] Idania Petznick DO Work Phone: [facility] 02-13-2025 08:38-0400 Heart rate 55 /min Idania Petznick DO Work Phone: [facility] 02-13-2025 08:38-0400 SaO2% (BldA) [Mass fraction] 97 % Idania Petznick DO Work Phone: [facility] 02-13-2025 08:38-0400 Systolic blood pressure 148 mm[Hg] Idania Petznick DO Work Phone: [facility] 02-02-2025 11:42-0400 Body height 188 cm Sherley Templeton MD Work Phone: [facility] 02-02-2025 11:42-0400 Body mass index (BMI) [Ratio] 38.52 kg/m2 Sherley Templeton MD Work Phone: [employer] 02-02-2025 11:42-0400 Body weight 136.08 kg Sherley Templeton MD Work Phone: [facility] [email or web address] 02-02-2025 09:06-0400 Body temperature 98.01 [degF] Sherley Templeton MD Work Phone: [facility] [email or web address] 02-02-2025 09:06-0400 Diastolic blood pressure 75 mm[Hg] Sherley Templeton MD Work Phone: [facility] [email or web address] 02-02-2025 09:06-0400 Heart rate 79 /min Sherley Templeton MD Work Phone: [facility] [email or web address] 02-02-2025 09:06-0400 Respiratory rate 18 /min Sherley Templeton MD Work Phone: [facility] [email or web address] 02-02-2025 09:06-0400 SaO2% (BldA) [Mass fraction] 96 % Sherley Templeton MD Work Phone: [facility] [email or web address] 02-02-2025 09:06-0400 Systolic blood pressure 183 mm[Hg] Sherley Templeton MD Work Phone: [facility] [email or web address] 01-02-2025 00:30-0400 Diastolic blood pressure 74 mm[Hg] Idania Petznick DO Work Phone: [facility] 01-02-2025 00:30-0400 Heart rate 74 /min Idania Petznick DO Work Phone: [facility] 01-02-2025 00:30-0400 Respiratory rate 20 /min Idania Petznick DO Work Phone: [facility] 01-02-2025 00:30-0400 SaO2% (BldA) [Mass fraction] 97 % Idania Petznick DO Work Phone: [facility] 01-02-2025 00:30-0400 Systolic blood pressure 157 mm[Hg] Idania Petznick DO Work Phone: [facility] 01-01-2025 21:07-0400 Body height 187.96 cm Idania Petznick DO Work Phone: 8(550)233-197463 [place] [address] 01-01-2025 21:07-0400 Body temperature 98.7 [degF] Idania Petznick DO Work Phone: 8(289)432-930640 [address] 01-01-2025 21:07-0400 Body weight 144.35 kg Idania Petznick DO Work Phone: 2(295)719-572840 [address] 12-29-2024 16:23-0400 Body height 187.96 cm Idania Petznick DO Work Phone: 0(972)930-722140 [address] 12-29-2024 16:23-0400 Body temperature 98 [degF] Idania Petznick DO Work Phone: 7(354)715-359440 [address] 12-29-2024 16:23-0400 Body weight 150 kg Idania Petznick DO Work Phone: 7(012)482-064063 [place] [address] 12-29-2024 16:23-0400 Diastolic blood pressure 93 mm[Hg] Idania Petznick DO Work Phone: 0(537)050-548763 [place] [address] 12-29-2024 16:23-0400 Heart rate 73 /min Idania Petznick DO Work Phone: 4(475)343-878963 [place] [address] 12-29-2024 16:23-0400 Respiratory rate 20 /min Idania Petznick DO Work Phone: [facility] 12-29-2024 16:23-0400 SaO2% (BldA) [Mass fraction] 97 % Idania Petznick DO Work Phone: [facility] 12-29-2024 16:23-0400 Systolic blood pressure 202 mm[Hg] Idania Petznick DO Work Phone: 3(541)893-085540 [address] 12-05-2024 13:42-0400 Body height 188 cm Idania Petznick DO Work Phone: [facility] 12-05-2024 13:42-0400 Body mass index (BMI) [Ratio] 40.7 kg/m2 Idania Petznick DO Work Phone: [facility] 12-05-2024 13:42-0400 Body temperature 98.29 [degF] Idania Petznick DO Work Phone: [facility] 12-05-2024 13:42-0400 Body weight 143.79 kg Idania Petznick DO Work Phone: [facility] 12-05-2024 13:42-0400 Diastolic blood pressure 80 mm[Hg] Idania Petznick DO Work Phone: [facility] 12-05-2024 13:42-0400 Heart rate 82 /min Idania Petznick DO Work Phone: [facility] 12-05-2024 13:42-0400 SaO2% (BldA) [Mass fraction] 100 % Idania Petznick DO Work Phone: [facility] 12-05-2024 13:42-0400 Systolic blood pressure 134 mm[Hg] Idania Petznick DO Work Phone: [facility] 11-27-2024 22:43-0400 Body height 187.96 cm Idania Petznick DO Work Phone: [facility] 11-27-2024 22:43-0400 Body temperature 98.6 [degF] Idania Petznick DO Work Phone: [facility] 11-27-2024 22:43-0400 Body weight 143.7 kg Idania Petznick DO Work Phone: [facility] 11-27-2024 22:43-0400 Diastolic blood pressure 80 mm[Hg] Idania Petznick DO Work Phone: [facility] 11-27-2024 22:43-0400 Heart rate 88 /min Idania Petznick DO Work Phone: [facility] 11-27-2024 22:43-0400 Respiratory rate 16 /min Idania Petznick DO Work Phone: [facility] 11-27-2024 22:43-0400 SaO2% (BldA) [Mass fraction] 96 % Idania Petznick DO Work Phone: 2(335)152-038640 [address] 11-27-2024 22:43-0400 Systolic blood pressure 156 mm[Hg] Idania Petznick DO Work Phone: 2(457)130-834340 [address] 10-29-2024 17:26-0500 Diastolic blood pressure 77 mm[Hg] Idania Petznick DO Work Phone: 6(194)706-183640 [address] 10-29-2024 17:26-0500 Systolic blood pressure 175 mm[Hg] Idania Petznick DO Work Phone: 3(202)312-164240 [address] 10-29-2024 16:38-0500 Body height 187.96 cm Idania Petznick DO Work Phone: 6(794)713-431840 [address] 10-29-2024 16:38-0500 Body temperature 98.2 [degF] Idania Petznick DO Work Phone: 4(834)820-620340 [address] 10-29-2024 16:38-0500 Body weight 141.6 kg Idania Petznick DO Work Phone: 2(873)904-949640 [address] 10-29-2024 16:38-0500 Heart rate 80 /min Idania Petznick DO Work Phone: 6(290)747-766163 [place] [address] 10-29-2024 16:38-0500 Respiratory rate 18 /min Idania Petznick DO Work Phone: [facility] 10-29-2024 16:38-0500 SaO2% (BldA) [Mass fraction] 98 % Idania Petznick DO Work Phone: [facility] 10-02-2024 13:39-0500 Body height 188 cm Idania Petznick DO Work Phone: [facility] 10-02-2024 13:39-0500 Body mass index (BMI) [Ratio] 39.42 kg/m2 Idania Petznick DO Work Phone: [facility] 10-02-2024 13:39-0500 Body temperature 98.4 [degF] Idania Petznick DO Work Phone: [facility] 10-02-2024 13:39-0500 Body weight 139.25 kg Idania Petznick DO Work Phone: [facility] 10-02-2024 13:39-0500 Diastolic blood pressure 64 mm[Hg] Idania Petznick DO Work Phone: [facility] 10-02-2024 13:39-0500 Heart rate 85 /min Idania Petznick DO Work Phone: [facility] 10-02-2024 13:39-0500 SaO2% (BldA) [Mass fraction] 96 % Idania Petznick DO Work Phone: [facility] 10-02-2024 13:39-0500 Systolic blood pressure 110 mm[Hg] Idania Petznick DO Work Phone: [facility] 09-19-2024 10:09-0500 Body height 188 cm Idania Petznick DO Work Phone: [facility] 09-19-2024 10:09-0500 Body mass index (BMI) [Ratio] 41.09 kg/m2 Idania Petznick DO Work Phone: [facility] 09-19-2024 10:09-0500 Body temperature 98.29 [degF] Idania Petznick DO Work Phone: [facility] 09-19-2024 10:09-0500 Body weight 145.15 kg Idania Petznick DO Work Phone: [facility] 09-19-2024 10:09-0500 Diastolic blood pressure 68 mm[Hg] Idania Petznick DO Work Phone: [facility] 09-19-2024 10:09-0500 Heart rate 78 /min Idania Petznick DO Work Phone: [facility] 09-19-2024 10:09-0500 SaO2% (BldA) [Mass fraction] 95 % Idania Petznick DO Work Phone: [facility] 09-19-2024 10:09-0500 Systolic blood pressure 122 mm[Hg] Idania Petznick DO Work Phone: [facility] 09-04-2024 13:36-0500 Body height 188 cm Idania Petznick DO Work Phone: [facility] 09-04-2024 13:36-0500 Body mass index (BMI) [Ratio] 40.06 kg/m2 Idania Petznick DO Work Phone: [facility] 09-04-2024 13:36-0500 Body temperature 98.4 [degF] Idania Petznick DO Work Phone: [facility] 09-04-2024 13:36-0500 Body weight 141.52 kg Idania Petznick DO Work Phone: [facility] 09-04-2024 13:36-0500 Diastolic blood pressure 62 mm[Hg] Idania Petznick DO Work Phone: [facility] 09-04-2024 13:36-0500 Heart rate 81 /min Idania Petznick DO Work Phone: [facility] 09-04-2024 13:36-0500 SaO2% (BldA) [Mass fraction] 95 % Idania Petznick DO Work Phone: [facility] 09-04-2024 13:36-0500 Systolic blood pressure 124 mm[Hg] Idania Petznick DO Work Phone: [facility] 08-29-2024 01:08-0500 Body temperature 98 [degF] Idania Petznick DO Work Phone: [facility] 08-29-2024 01:08-0500 Diastolic blood pressure 68 mm[Hg] Idania Petznick DO Work Phone: [facility] 08-29-2024 01:08-0500 Heart rate 90 /min Idania Petznick DO Work Phone: [facility] 08-29-2024 01:08-0500 Respiratory rate 18 /min Idania Petznick DO Work Phone: [facility] 08-29-2024 01:08-0500 SaO2% (BldA) [Mass fraction] 95 % Idania Petznick DO Work Phone: [facility] 08-29-2024 01:08-0500 Systolic blood pressure 114 mm[Hg] Idania Petznick DO Work Phone: [facility] 08-28-2024 22:37-0500 Body height 187.96 cm Idania Petznick DO Work Phone: [facility] 08-28-2024 22:37-0500 Body weight 144.6 kg Idania Petznick DO Work Phone: [facility] 08-07-2024 13:53-0500 Body height 188 cm Idania Petznick DO Work Phone: [facility] 08-07-2024 13:53-0500 Body mass index (BMI) [Ratio] 40.19 kg/m2 Idnaia Petznick DO Work Phone: [facility] 08-07-2024 13:53-0500 Body temperature 96.91 [degF] Idania Petznick DO Work Phone: [facility] 08-07-2024 13:53-0500 Body weight 141.98 kg Idania Petznick DO Work Phone: [facility] 08-07-2024 13:53-0500 Diastolic blood pressure 78 mm[Hg] Idania Petznick DO Work Phone: [facility] 08-07-2024 13:53-0500 Heart rate 83 /min Idania Petznick DO Work Phone: [facility] 08-07-2024 13:53-0500 SaO2% (BldA) [Mass fraction] 91 % Idania Petznick DO Work Phone: [facility] 08-07-2024 13:53-0500 Systolic blood pressure 134 mm[Hg] Idania Petznick DO Work Phone: [facility] 05-16-2024 09:17-0400 Body height 188 cm Idania Petznick DO Work Phone: [facility] 05-16-2024 09:17-0400 Body mass index (BMI) [Ratio] 40.37 kg/m2 Idania Petznick DO Work Phone: [facility] 05-16-2024 09:17-0400 Body temperature 96.91 [degF] Idania Petznick DO Work Phone: [facility] 05-16-2024 09:17-0400 Body weight 142.61 kg Idania Petznick DO Work Phone: [facility] 05-16-2024 09:17-0400 Diastolic blood pressure 62 mm[Hg] Idania Petznick DO Work Phone: [facility] 05-16-2024 09:17-0400 Heart rate 81 /min Idania Petznick DO Work Phone: [facility] 05-16-2024 09:17-0400 SaO2% (BldA) [Mass fraction] 94 % Idania Petznick DO Work Phone: [facility] 05-16-2024 09:17-0400 Systolic blood pressure 154 mm[Hg] Idania Petznick DO Work Phone: [facility] 05-15-2024 14:51-0400 Body height 187.96 cm DO Idania Petznick Work Phone: [facility] 05-15-2024 14:51-0400 Body temperature 98.5 [degF] DO Idania Petznick Work Phone: [facility] 05-15-2024 14:51-0400 Body weight 142.25 kg DO Idania Petznick Work Phone: [facility] 05-15-2024 14:51-0400 Diastolic blood pressure 83 mm[Hg] DO Idania Petznick Work Phone: 5(544)369-560863 [place] [address] 05-15-2024 14:51-0400 Heart rate 64 /min DO Idania Petznick Work Phone: 5(083)725-726305 [place] [address] 05-15-2024 14:51-0400 Respiratory rate 21 /min DO Idania Petznick Work Phone: 5(475)592-089405 [place] [address] 05-15-2024 14:51-0400 SaO2% (BldA) [Mass fraction] 97 % DO Idania Petznick Work Phone: 2(998)065-153505 [place] [address] 05-15-2024 14:51-0400 Systolic blood pressure 183 mm[Hg] DO Idania Petznick Work Phone: 7(278)412-712705 [place] [address] 02-04-2024 12:00-0400 Diastolic blood pressure 73 mm[Hg] DO Idania Petznick Work Phone: 2(146)016-357905 [place] [address] 02-04-2024 12:00-0400 Heart rate 65 /min DO Idania Petznick Work Phone: 6(478)237-767405 [place] [address] 02-04-2024 12:00-0400 Respiratory rate 16 /min DO Idania Petznick Work Phone: 7(289)770-341805 [place] [address] 02-04-2024 12:00-0400 SaO2% (BldA) [Mass fraction] 96 % DO Idania Petznick Work Phone: 2(313)076-282205 [place] [address] 02-04-2024 12:00-0400 Systolic blood pressure 133 mm[Hg] DO Idania Petznick Work Phone: 4(732)999-829740 [address] 02-04-2024 10:38-0400 Body height 187.96 cm DO Idania Petznick Work Phone: 6(596)695-514205 [place] [address] 02-04-2024 10:38-0400 Body temperature 98.5 [degF] DO Idania Petznick Work Phone: 5(888)916-557840 [address] 02-04-2024 10:38-0400 Body weight 142.88 kg DO Idania Petznick Work Phone: 1(167)959-719640 [address] 01-03-2024 09:34-0400 Body height 187.96 cm DO Idania Petznick Work Phone: 6(908)336-902840 [address] 01-03-2024 09:34-0400 Body mass index (BMI) [Ratio] 40.4 kg/m2 DO Idania Petznick Work Phone: 4(192)589-631740 [address] 01-03-2024 09:34-0400 Body temperature 97.8 [degF] DO Idania Petznick Work Phone: 8(426)757-922240 [address] 01-03-2024 09:34-0400 Body weight 142.88 kg DO Idania Petznick Work Phone: 2(275)091-806705 [place] [address] 01-03-2024 09:34-0400 Diastolic blood pressure 72 mm[Hg] DO Idania Petznick Work Phone: 7(485)783-806805 [place] [address] 01-03-2024 09:34-0400 Heart rate 76 /min DO Idania Petznick Work Phone: 6(291)669-439140 [address] 01-03-2024 09:34-0400 Respiratory rate 16 /min DO Idania Petznick Work Phone: 0(802)721-952140 [address] 01-03-2024 09:34-0400 SaO2% (BldA) [Mass fraction] 98 % DO Idania Petznick Work Phone: 0(122)477-196640 [address] 01-03-2024 09:34-0400 Systolic blood pressure 124 mm[Hg] DO Idania Petznick Work Phone: 9(388)749-055040 [address] 12-24-2023 13:15-0400 Diastolic blood pressure 73 mm[Hg] DO Idania Petznick Work Phone: 5(793)524-982040 [address] 12-24-2023 13:15-0400 Heart rate 76 /min DO Idania Petznick Work Phone: 3(416)948-798640 [address] 12-24-2023 13:15-0400 Respiratory rate 16 /min DO Idania Petznick Work Phone: 8(895)565-747463 [place] [address] 12-24-2023 13:15-0400 SaO2% (BldA) [Mass fraction] 97 % DO Idania Petznick Work Phone: [facility] 12-24-2023 13:15-0400 Systolic blood pressure 135 mm[Hg] DO Idania Petznick Work Phone: 9(193)665-027063 [place] [address] 12-24-2023 11:05-0400 Body height 187.96 cm DO Idania Petznick Work Phone: 2(878)822-073063 [place] [address] 12-24-2023 11:05-0400 Body temperature 97.5 [degF] DO Idania Petznick Work Phone: 1(968)458-857263 [place] [address] 12-24-2023 11:05-0400 Body weight 142.88 kg DO Idania Petznick Work Phone: 9(306)884-403640 [address] 12-06-2023 12:01-0400 Body height 187.96 cm DO Idania Petznick Work Phone: 2(400)217-399105 [place] [address] 12-06-2023 12:01-0400 Body mass index (BMI) [Ratio] 42 kg/m2 DO Idania Petznick Work Phone: 8(686)201-427563 [place] [address] 12-06-2023 12:01-0400 Body temperature 98 [degF] DO Idania Petznick Work Phone: 3(252)877-632063 [place] [address] 12-06-2023 12:01-0400 Body weight 148.77 kg DO Idania Petznick Work Phone: 7(320)176-639563 [place] [address] 12-06-2023 12:01-0400 Diastolic blood pressure 78 mm[Hg] DO Idania Petznick Work Phone: [facility] 12-06-2023 12:01-0400 Heart rate 82 /min DO Idania Petznick Work Phone: 0(305)183-053763 [place] [address] 12-06-2023 12:01-0400 SaO2% (BldA) [Mass fraction] 97 % DO Idania Petznick Work Phone: 7(676)382-702463 [place] [address] 12-06-2023 12:01-0400 Systolic blood pressure 132 mm[Hg] DO Idania Petznick Work Phone: [facility] 11-25-2023 14:43-0400 Heart rate 79 /min DO Idania Petznick Work Phone: [facility] 11-25-2023 14:36-0400 Body height 187.96 cm DO Idania Petznick Work Phone: [facility] 11-25-2023 14:36-0400 Body temperature 97.8 [degF] DO Idania Petznick Work Phone: [facility] 11-25-2023 14:36-0400 Body weight 148.7 kg DO Idania Petznick Work Phone: [facility] 11-25-2023 14:36-0400 Diastolic blood pressure 70 mm[Hg] DO Idania Petznick Work Phone: [facility] 11-25-2023 14:36-0400 Respiratory rate 18 /min DO Idania Petznick Work Phone: [facility] 11-25-2023 14:36-0400 SaO2% (BldA) [Mass fraction] 93 % DO Idania Petznick Work Phone: [facility] 11-25-2023 14:36-0400 Systolic blood pressure 169 mm[Hg] DO Idania Petznick Work Phone: [facility] 11-23-2023 14:47-0400 Body temperature 98 [degF] DO Idania Petznick Work Phone: [facility] 11-23-2023 14:47-0400 Diastolic blood pressure 79 mm[Hg] DO Idania Petznick Work Phone: [facility] 11-23-2023 14:47-0400 Heart rate 77 /min DO Idania Petznick Work Phone: [facility] 11-23-2023 14:47-0400 Respiratory rate 18 /min DO Idania Petznick Work Phone: [facility] 11-23-2023 14:47-0400 SaO2% (BldA) [Mass fraction] 98 % DO Idania Petznick Work Phone: 9(843)938-960305 [place] [address] 11-23-2023 14:47-0400 Systolic blood pressure 172 mm[Hg] DO Idania Petznick Work Phone: 5(512)948-707605 [place] [address] 11-23-2023 05:54-0400 Body weight 146.2 kg DO Idania Petznick Work Phone: 9(785)001-897405 [place] [address] 11-21-2023 11:53-0400 Body height 187.96 cm DO Idania Petznick Work Phone: 7(552)997-442105 [place] [address] 11-20-2023 21:43-0400 Body temperature 97.7 [degF] DO Idania Petznick Work Phone: 3(365)357-853705 [place] [address] 11-20-2023 21:30-0400 Diastolic blood pressure 76 mm[Hg] DO Idania Petznick Work Phone: 1(065)608-608205 [place] [address] 11-20-2023 21:30-0400 Heart rate 90 /min DO Idania Petznick Work Phone: 6(045)675-579363 [place] [address] 11-20-2023 21:30-0400 Respiratory rate 18 /min DO Idania Petznick Work Phone: 3(240)596-792505 [place] [address] 11-20-2023 21:30-0400 SaO2% (BldA) [Mass fraction] 95 % DO Idania Petznick Work Phone: 1(024)703-306140 [address] 11-20-2023 21:30-0400 Systolic blood pressure 121 mm[Hg] DO Idania Petznick Work Phone: 7(324)010-979805 [place] [address] 11-20-2023 18:41-0400 Body height 187.96 cm DO Idania Petznick Work Phone: 7(336)272-936105 [place] [address] 11-20-2023 18:41-0400 Body weight 147.25 kg DO Idania Petznick Work Phone: 0(529)830-071840 [address] 11-08-2023 09:45-0500 Body height 187.96 cm DO Idania Petznick Work Phone: [facility] 11-08-2023 09:45-0500 Body mass index (BMI) [Ratio] 41.1 kg/m2 DO Idania Petznick Work Phone: [facility] 11-08-2023 09:45-0500 Body temperature 97.1 [degF] DO Idania Petznick Work Phone: [facility] 11-08-2023 09:45-0500 Body weight 145.14 kg DO Idania Petznick Work Phone: [facility] 11-08-2023 09:45-0500 Diastolic blood pressure 70 mm[Hg] DO Idania Petznick Work Phone: [facility] 11-08-2023 09:45-0500 Heart rate 78 /min DO Idania Petznick Work Phone: [facility] 11-08-2023 09:45-0500 SaO2% (BldA) [Mass fraction] 92 % DO Idania Petznick Work Phone: [facility] 11-08-2023 09:45-0500 Systolic blood pressure 160 mm[Hg] DO Idania Petznick Work Phone: [facility] 10-27-2023 14:48-0500 Diastolic blood pressure 67 mm[Hg] DO Idania Petznick Work Phone: [facility] 10-27-2023 14:48-0500 Heart rate 83 /min DO Idania Petznick Work Phone: [facility] 10-27-2023 14:48-0500 Respiratory rate 16 /min DO Idania Petznick Work Phone: [facility] 10-27-2023 14:48-0500 SaO2% (BldA) [Mass fraction] 99 % DO Idania Petznick Work Phone: [facility] 10-27-2023 14:48-0500 Systolic blood pressure 142 mm[Hg] DO Idania Petznick Work Phone: [facility] 10-27-2023 13:12-0500 Body height 187.96 cm DO Idania Petznick Work Phone: [facility] 10-27-2023 13:12-0500 Body temperature 98 [degF] DO Idania Petznick Work Phone: [facility] 10-27-2023 13:12-0500 Body weight 154.22 kg DO Idania Petznick Work Phone: [facility] 10-13-2023 11:02-0500 Body height 188 cm Flakito High DO Work Phone: [facility] 10-13-2023 11:02-0500 Body mass index (BMI) [Ratio] 43.65 kg/m2 Flakito High DO Work Phone: [facility] 10-13-2023 11:02-0500 Body weight 154.22 kg Flakito High DO Work Phone: [facility] 10-06-2023 14:18-0500 Diastolic blood pressure 67 mm[Hg] DO Idania Petznick Work Phone: [facility] 10-06-2023 14:18-0500 Heart rate 71 /min DO Idania Petznick Work Phone: [facility] 10-06-2023 14:18-0500 Respiratory rate 16 /min DO Idania Petznick Work Phone: [facility] 10-06-2023 14:18-0500 SaO2% (BldA) [Mass fraction] 96 % DO Idania Petznick Work Phone: [facility] 10-06-2023 14:18-0500 Systolic blood pressure 141 mm[Hg] DO Idania Petznick Work Phone: [facility] 10-06-2023 13:05-0500 Inhaled oxygen flow rate 6 L/min DO Idania Petznick Work Phone: [facility] 10-06-2023 12:55-0500 Body temperature 97.2 [degF] DO Idania Petznick Work Phone: [facility] 10-06-2023 09:51-0500 Body height 187.96 cm DO Idania Petznick Work Phone: [facility] 10-06-2023 09:51-0500 Body mass index (BMI) [Ratio] 44.3 kg/m2 DO Idania Petznick Work Phone: [facility] 10-06-2023 09:51-0500 Body weight 156.48 kg DO Idania Petznick Work Phone: [facility] 10-04-2023 10:45-0500 Body height 187.96 cm Ramirez Jean Other [facility] 10-04-2023 10:45-0500 Body mass index (BMI) [Ratio] 44.29 kg/m2 Ramirez Jean Other [employer] Other 10-04-2023 10:45-0500 Body temperature 98 [degF] Ramirez Jean Other [employer] Other 10-04-2023 10:45-0500 Body weight 156.49 kg Ramirez Jean Other [employer] [facility] Other 10-04-2023 10:45-0500 Body weight 156.48 kg DO Idania Petznick Work Phone: [facility] 10-04-2023 10:45-0500 Diastolic blood pressure 72 mm[Hg] Ramirez Jean Other [facility] 10-04-2023 10:45-0500 SaO2% (BldA) [Mass fraction] 93 % Ramirez Jean Other [employer] Other 10-04-2023 10:45-0500 Systolic blood pressure 150 mm[Hg] Ramirez Jean Other [facility] 09-26-2023 00:38-0500 Diastolic blood pressure 69 mm[Hg] DO Idania Petznick Work Phone: [facility] 09-26-2023 00:38-0500 Heart rate 82 /min DO Idania Petznick Work Phone: [facility] 09-26-2023 00:38-0500 Respiratory rate 20 /min DO Idania Petznick Work Phone: [facility] 09-26-2023 00:38-0500 SaO2% (BldA) [Mass fraction] 96 % DO Idania Petznick Work Phone: [facility] 09-26-2023 00:38-0500 Systolic blood pressure 138 mm[Hg] DO Idania Petznick Work Phone: [facility] 09-25-2023 19:04-0500 Body height 184.15 cm DO Idania Petznick Work Phone: [facility] 09-25-2023 19:04-0500 Body temperature 97.9 [degF] DO Idania Petznick Work Phone: [facility] 09-25-2023 19:04-0500 Body weight 158 kg DO Idania Petznick Work Phone: [facility] 09-16-2023 16:09-0500 Diastolic blood pressure 62 mm[Hg] DO Idania Petznick Work Phone: [facility] 09-16-2023 16:09-0500 Heart rate 68 /min DO Idania Petznick Work Phone: [facility] 09-16-2023 16:09-0500 Respiratory rate 16 /min DO Idania Petznick Work Phone: [facility] 09-16-2023 16:09-0500 SaO2% (BldA) [Mass fraction] 94 % DO Idania Petznick Work Phone: [facility] 09-16-2023 16:09-0500 Systolic blood pressure 119 mm[Hg] DO Idania Petznick Work Phone: [facility] 09-16-2023 13:54-0500 Body temperature 97.9 [degF] DO Idania Petznick Work Phone: [facility] 09-16-2023 13:24-0500 Inhaled oxygen flow rate 10 L/min DO Idania Petznick Work Phone: [facility] 09-16-2023 11:32-0500 Body mass index (BMI) [Ratio] 45.9 kg/m2 DO Idania Petznick Work Phone: [facility] 09-16-2023 11:26-0500 Body height 185.42 cm DO Idania Petznick Work Phone: [facility] 09-16-2023 11:26-0500 Body weight 157.85 kg DO Idania Petznick Work Phone: [facility] 06-16-2023 11:00-0400 Body height 187.96 cm Tondra Mapus Other [employer] Other 06-16-2023 11:00-0400 Body mass index (BMI) [Ratio] 43.93 kg/m2 Tondra Mapus Other [employer] Other 06-16-2023 11:00-0400 Body weight 155.22 kg Tondra Mapus Other [facility] [employer] Other 06-16-2023 11:00-0400 Diastolic blood pressure 82 mm[Hg] Tondra Mapus Other [employer] Other 06-16-2023 11:00-0400 Respiratory rate 18 /min Tondra Mixonus Other [facility] [address] [employer] Other 06-16-2023 11:00-0400 SaO2% (BldA) [Mass fraction] 98 % Tondrmoraima Mixonus Other [facility] [employer] Other 06-16-2023 11:00-0400 Systolic blood pressure 160 mm[Hg] Tondra Oralus Other [facility] [employer] Other 11-07-2022 16:00-0500 Body temperature 97.8 [degF] DO Idania Petznick Work Phone: [facility] 11-07-2022 16:00-0500 Diastolic blood pressure 75 mm[Hg] DO Idania Petznick Work Phone: [facility] 11-07-2022 16:00-0500 Heart rate 86 /min DO Idania Petznick Work Phone: [facility] 11-07-2022 16:00-0500 Respiratory rate 16 /min DO Idania Petznick Work Phone: [facility] 11-07-2022 16:00-0500 SaO2% (BldA) [Mass fraction] 96 % DO Idania Petznick Work Phone: [facility] 11-07-2022 16:00-0500 Systolic blood pressure 162 mm[Hg] DO Idania Petznick Work Phone: [facility] 11-07-2022 06:00-0500 Body weight 144.9 kg DO Idania Petznick Work Phone: [facility] 11-06-2022 14:55-0500 Inhaled oxygen flow rate 3 L/min DO Idania Petznick Work Phone: [facility] 11-06-2022 13:24-0500 Body height 187.96 cm DO Idania Petznick Work Phone: [facility] 11-06-2022 13:24-0500 Body mass index (BMI) [Ratio] 41 kg/m2 DO Idania Petznick Work Phone: [facility] 11-04-2022 20:00-0500 Diastolic blood pressure 94 mm[Hg] DO Idania Petznick Work Phone: [facility] 11-04-2022 20:00-0500 Heart rate 81 /min DO Idania Petznick Work Phone: [facility] 11-04-2022 20:00-0500 Respiratory rate 20 /min DO Idania Petznick Work Phone: [facility] 11-04-2022 20:00-0500 SaO2% (BldA) [Mass fraction] 97 % DO Idania Petznick Work Phone: [facility] 11-04-2022 20:00-0500 Systolic blood pressure 186 mm[Hg] DO Idania Petznick Work Phone: [facility] 11-04-2022 13:57-0500 Body height 187.96 cm DO Idania Petznick Work Phone: [facility] 11-04-2022 13:57-0500 Body temperature 99.1 [degF] DO Idania Petznick Work Phone: [facility] 11-04-2022 13:57-0500 Body weight 145 kg DO Idania Petznick Work Phone: [facility] 11-01-2022 23:00-0500 Diastolic blood pressure 70 mm[Hg] DO Idania Petznick Work Phone: [facility] 11-01-2022 23:00-0500 Heart rate 80 /min DO Idania Petznick Work Phone: [facility] 11-01-2022 23:00-0500 Respiratory rate 20 /min DO Idania Petznick Work Phone: 5(612)659-584605 [place] [address] 11-01-2022 23:00-0500 SaO2% (BldA) [Mass fraction] 98 % DO Idania Petznick Work Phone: 5(604)894-346963 [place] [address] 11-01-2022 23:00-0500 Systolic blood pressure 162 mm[Hg] DO Idania Petznick Work Phone: 3(669)592-061040 [address] 11-01-2022 21:02-0500 Body height 187.96 cm DO Idania Petznick Work Phone: 7(779)783-275440 [address] 11-01-2022 21:02-0500 Body temperature 98 [degF] DO Idania Petznick Work Phone: 9(411)806-745140 [address] 11-01-2022 21:02-0500 Body weight 149.7 kg DO Idania Petznick Work Phone: 3(863)418-922405 [place] [address] 10-10-2022 05:23-0500 Diastolic blood pressure 81 mm[Hg] DO Idania Petznick Work Phone: 3(795)927-790240 [address] 10-10-2022 05:23-0500 Heart rate 92 /min DO Idania Petznick Work Phone: 6(483)110-759563 [place] [address] 10-10-2022 05:23-0500 Respiratory rate 20 /min DO Idania Petznick Work Phone: 5(083)005-212263 [place] [address] 10-10-2022 05:23-0500 SaO2% (BldA) [Mass fraction] 98 % DO Idania Petznick Work Phone: 0(418)021-772063 [place] [address] 10-10-2022 05:23-0500 Systolic blood pressure 165 mm[Hg] DO Idania Petznick Work Phone: 8(439)079-152740 [address] 10-10-2022 04:13-0500 Body height 187.96 cm DO Idania Petznick Work Phone: 8(872)538-798540 [address] 10-10-2022 04:13-0500 Body temperature 97.1 [degF] DO Idania Petznick Work Phone: 9(648)518-707063 [place] [address] 10-10-2022 04:13-0500 Body weight 152 kg DO Idania Petznick Work Phone: [facility] 09-23-2022 04:15-0500 Diastolic blood pressure 89 mm[Hg] DO Idania Petznick Work Phone: [facility] 09-23-2022 04:15-0500 Heart rate 72 /min DO Idania Petznick Work Phone: [facility] 09-23-2022 04:15-0500 Respiratory rate 18 /min DO Idania Petznick Work Phone: [facility] 09-23-2022 04:15-0500 SaO2% (BldA) [Mass fraction] 98 % DO Idania Petznick Work Phone: [facility] 09-23-2022 04:15-0500 Systolic blood pressure 156 mm[Hg] DO Idania Petznick Work Phone: [facility] 09-22-2022 22:41-0500 Body height 187.96 cm DO Idania Petznick Work Phone: [facility] 09-22-2022 22:41-0500 Body temperature 98.2 [degF] DO Idania Petznick Work Phone: [facility] 09-22-2022 22:41-0500 Body weight 144.75 kg DO Idania Petznick Work Phone: [facility] 08-12-2022 16:00-0500 Body height 187.96 cm Ada Moody Other [employer] Other 08-12-2022 16:00-0500 Body mass index (BMI) [Ratio] 40.36 kg/m2 Ada Moody Other [employer] Other 08-12-2022 16:00-0500 Body temperature 97.7 [degF] Ada Moody Other [employer] Other 08-12-2022 16:00-0500 Body weight 142.61 kg Ada Moody Other [employer] Other 08-12-2022 16:00-0500 Diastolic blood pressure 62 mm[Hg] Ada Moody Other [employer] Other 08-12-2022 16:00-0500 Respiratory rate 18 /min Ada Moody Other [employer] Other 08-12-2022 16:00-0500 SaO2% (BldA) [Mass fraction] 96 % Ada Moody Other [employer] Other 08-12-2022 16:00-0500 Systolic blood pressure 138 mm[Hg] Ada Moody Other [employer] Other 07-29-2022 02:30-0500 Diastolic blood pressure 75 mm[Hg] DO Idania Petznick Work Phone: [facility] 07-29-2022 02:30-0500 Heart rate 80 /min DO Idania Petznick Work Phone: [facility] 07-29-2022 02:30-0500 Respiratory rate 20 /min DO Idania Petznick Work Phone: [facility] 07-29-2022 02:30-0500 SaO2% (BldA) [Mass fraction] 94 % DO Idania Petznick Work Phone: [facility] 07-29-2022 02:30-0500 Systolic blood pressure 121 mm[Hg] DO Idania Petznick Work Phone: [facility] 07-29-2022 00:02-0500 Body height 185.42 cm DO Idania Petznick Work Phone: [facility] 07-29-2022 00:02-0500 Body temperature 97.6 [degF] DO Idania Ricketts Work Phone: [facility] 07-29-2022 00:02-0500 Body weight 143.7 kg DO Idania Ricketts Work Phone: [facility] 07-17-2022 13:13-0500 Body height 182.88 cm [facility] 07-17-2022 13:13-0500 Body mass index (BMI) [Ratio] 42.31 kg/m2 [facility] 07-17-2022 13:13-0500 Body surface area Derived from formula 2.68 m2 [facility] 07-17-2022 13:13-0500 Body weight 141.52 kg Sj ToonTime 07-17-2022 13:13-0500 Body weight 0.1 {percentile} Sj ToonTime 07-17-2022 13:13-0500 Diastolic blood pressure 70 mm[Hg] Sj ToonTime 07-17-2022 13:13-0500 Heart rate 64 /min Sj ToonTime 07-17-2022 13:13-0500 Systolic blood pressure 130 mm[Hg] Sj ToonTime 05-20-2022 17:20-0400 Body height 187.96 cm Ada Uriostegui Other [employer] Other 05-20-2022 17:20-0400 Body mass index (BMI) [Ratio] 39.77 kg/m2 Ada Moody Other [facility] [employer] Other 05-20-2022 17:20-0400 Body temperature 96.4 [degF] Ada Moody Other [facility] [employer] Other 05-20-2022 17:20-0400 Body weight 140.53 kg Ada Moody Other [facility] [employer] Other 05-20-2022 17:20-0400 Diastolic blood pressure 72 mm[Hg] Ada Moody Other [employer] Other 05-20-2022 17:20-0400 Respiratory rate 18 /min Ada Moody Other [facility] [employer] Other 05-20-2022 17:20-0400 SaO2% (BldA) [Mass fraction] 97 % Ada Moody Other [employer] Other 05-20-2022 17:20-0400 Systolic blood pressure 150 mm[Hg] Ada Moody Other [facility] [employer] Other 03-12-2022 17:20-0400 Body height 187.96 cm Ada Moody Other [employer] Other 03-12-2022 17:20-0400 Body mass index (BMI) [Ratio] 38.68 kg/m2 Ada Moody Other [employer] Other 03-12-2022 17:20-0400 Body temperature 96.4 [degF] Ada Moody Other [employer] Other 03-12-2022 17:20-0400 Body weight 136.67 kg Ada Moody Other [employer] Other 03-12-2022 17:20-0400 Diastolic blood pressure 88 mm[Hg] Ada Moody Other [employer] Other 03-12-2022 17:20-0400 Respiratory rate 18 /min Ada Moody Other [employer] Other 03-12-2022 17:20-0400 SaO2% (BldA) [Mass fraction] 98 % Ada Moody Other [employer] Other 03-12-2022 17:20-0400 Systolic blood pressure 160 mm[Hg] Ada Moody Other [employer] Other 12-03-2021 17:20-0400 Body height 248.92 cm Ada Moody Other [employer] Other 12-03-2021 17:20-0400 Body mass index (BMI) [Ratio] 22.48 kg/m2 Ada Moody Other [employer] Other 12-03-2021 17:20-0400 Body temperature 96.7 [degF] Ada Moody Other [employer] Other 12-03-2021 17:20-0400 Body weight 139.3 kg Ada Moody Other [employer] Other 12-03-2021 17:20-0400 Diastolic blood pressure 90 mm[Hg] Ada Moody Other [employer] Other 12-03-2021 17:20-0400 Respiratory rate 18 /min Ada Moody Other [employer] Other 12-03-2021 17:20-0400 SaO2% (BldA) [Mass fraction] 96 % Ada Moody Other [employer] Other 12-03-2021 17:20-0400 Systolic blood pressure 160 mm[Hg] Ada Moody Other [employer] Other Encounters Encounter Date Encounter Type Care Provider Facility Start: 05-16-2025 End: 05-16-2025 Refill Idania Ricketts DO Work Phone: [facility] [phone] Comment on above: 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 Facility:[facility] Start: 05-10-2025 End: 05-10-2025 Office outpatient visit 25 minutes Kaylee Mesa PA Work Phone: [facility] Comment on above: Spinal stenosis of l umbar region with neurogenic claudication (Primary Dx); Diabetic peripheral neuropathy ([facility]-HCC) Start: 05-10-2025 End: 05-10-2025 ambulatory KAYLEE MESA [facility] Start: 04-27-2025 End: 04-27-2025 ambulatory ALEC JACOBSON [facility] Start: 04-26-2025 End: 04-26-2025 Emergency department patient visit Violeta Mitchell Emergency Department Comment on above: Chronic foot pain, u nspecified laterality (Primary Dx) Start: 04-24-2025 End: 04-24-2025 Emergency department patient visit Idania Ricketts DO Work Phone: -Emergency Room Work Phone: Start: 04-10-2025 End: 04-10-2025 Emergency department [facility] Start: 04-06-2025 End: 04-27-2025 Telephone encounter Marielos Abreu RN [facility] Comment on above: Medication Start: 04-05-2025 End: 04-05-2025 Office outpatient new 45 minutes Kaylee S Nijeffrey PA Work Phone: [facility] Comment on above: Spinal stenosis of l umbar region with neurogenic claudication (Primary Dx); Diabetic peripheral neuropathy ([facility]) Start: 04-05-2025 End: 04-05-2025 ambulatory KAYLEE MESA [facility] Start: 03-28-2025 End: 03-29-2025 Emergency department patient [facility]AN[facility]arl[facility] Start: 03-26-2025 End: 03-26-2025 Emergency department patient visit Idania Ricketts DO Work Phone: -Emergency Room Work Phone: Start: 03-11-2025 End: 03-11-2025 Emergency department patient visit Idania Ricketts DO Work Phone: -Emergency Room Work Phone: Start: 03-07-2025 End: 03-07-2025 ambulatory Idania Ricketts DO Work Phone: [facility] Work Phone: Start: 03-07-2025 End: 03-07-2025 Patient encounter procedure Jey Ramos MD [facility] Work Phone: Start: 03-01-2025 End: 03-01-2025 Refill Idania Ricketts DO Work Phone: [facility] 230 Comment on above: 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) Start: 02-20-2025 Non-patient / Non-visit Nuria Márquez -[facility] Work Phone: Start: 02-13-2025 End: 02-13-2025 ambulatory Idania Petznick DO Work Phone: [facility] Work Phone: Start: 02-13-2025 End: 02-13-2025 Patient encounter procedure Idania Petznick DO Work Phone: [facility] Work Phone: Start: 02-02-2025 End: 02-02-2025 Emergency department patient visit Delano Benavides [facility] Start: 02-02-2025 End: 02-02-2025 Emergency department patient visit Sherley Templeton MD Work Phone: [facility] Emergency Department Comment on above: Idiopathic periphera l neuropathy (Primary Dx); End stage renal disease (HCC); Hyperkalemia Start: 01-01-2025 End: 01-02-2025 Emergency department patient visit Idania Petznick DO Work Phone: [facility]Emergency [facility] Work Phone: Start: 12-30-2024 End: 12-30-2024 ambulatory [facility] Start: 12-29-2024 End: 12-29-2024 Emergency department patient visit Idania Petznick DO Work Phone: [facility] Work Phone: Start: 12-27-2024 End: 12-27-2024 Emergency department patient visit TANVIR SMITH [facility] Start: 12-21-2024 ambulatory CHONG COOLEY [facility] Start: 12-21-2024 ambulatory HEAVENLY BUENO [facility] Start: 12-12-2024 End: 12-12-[address] [facility] Start: 12-12-2024 End: 12-12-[address] [facility] Start: 12-12-2024 End: 12-12-2024 Encounter for other preprocedural examination [facility] Start: 12-06-2024 End: 12-06-2024 Emergency department patient visit IDANIA RICKETTS [facility] Start: 12-05-2024 End: 12-05-2024 Emergency department patient visit IDANIA RICKETTS [facility] Start: 12-05-2024 End: 12-05-2024 Bamboo flowsheet Idania Rossick DO Work Phone: [facility] 230 Start: 12-05-2024 End: 12-05-2024 Bamboo flowsheet Idania Rossick DO Work Phone: [facility] 230 Start: 12-05-2024 End: 12-05-2024 Office outpatient visit 25 minutes Idania Ricketts DO Work Phone: [facility] 230 Comment on above: Type [...] patient visit Idania Ricketts DO Work Phone: [facility]Emergency Room Work Phone: Start: 11-27-2024 End: 11-27-2024 Emergency department patient visit IDANIA RICKETTS [facility] Start: 11-27-2024 End: 11-27-2024 Emergency department patient visit IDANIA RICKETTS [facility] Start: 11-27-2024 End: 11-27-2024 Telephone encounter Idania Ricketts DO Work Phone: [facility] 230 Comment on above: Med Refill Start: 11-23-2024 Encounter for other preprocedural examination [facility] Start: 11-23-2024 ambulatory [facility] Start: 11-07-2024 End: 11-07-2024 ambulatory [facility] Start: 10-31-2024 End: 10-31-2024 ambulatory [facility] Start: 10-29-2024 End: 10-30-2024 ambulatory Maxime Magana Facility:[facility] Start: 10-29-2024 End: 10-30-2024 Evaluation and management of inpatient Idania Ricketts DO Work Phone: [facility] Work Phone: Start: 10-25-2024 End: 10-26-2024 Emergency department patient visit IDANIA RICKETTS [facility] Start: 10-17-2024 End: 10-17-2024 ambulatory [facility] Start: 10-17-2024 End: 10-17-2024 ambulatory [facility] Start: 10-13-2024 End: 10-13-2024 ambulatory IDANIA RICKETTS Facility:[facility] Start: 10-04-2024 End: 10-04-2024 Telephone encounter Idania Rossick DO Work Phone: [facility] 230 Comment on above: Referral Start: 10-03-2024 End: 10-03-2024 ambulatory GI MONDRAGON Not Available Start: 10-03-2024 End: 10-03-2024 Office outpatient visit 15 minutes Gi Mondragon DPM Work Phone: [facility] Comment on above: Neuropathy (Primary Dx); Ulcer of right heel and midfoot with fat layer exposed (CMS/HCC); Ulcer of right foot, limited to breakdown of skin (CMS/HCC); Type 2 diabetes mellitus with peripheral neuropathy (CMS/HCC); Chronic kidney disease due to diabetes mellitus (CMS/HCC) Start: 10-02-2024 End: 10-02-2024 Office outpatient visit 15 minutes Idania Rossick DO Work Phone: [facility] 230 Comment on above: Bilious vomiting wit h nausea (Primary Dx); Type 2 diabetes mellitus with peripheral neuropathy (CMS/HCC) Start: 10-02-2024 End: 10-02-2024 ambulatory IDANIA Maeve PETZNICK Not Available Start: 09-19-2024 End: 09-19-2024 Office outpatient visit 15 minutes Idania Rossick DO Work Phone: [facility] 230 Comment on above: Lymphedema (Primary Dx); End stage renal disease (CMS/HCC); Venous stasis dermatitis Start: 09-19-2024 End: 09-19-2024 Patient encounter procedure Gi Mondragon DPM Work Phone: [facility] Comment on above: Ulcer of right heel and midfoot with fat layer exposed (CMS/HCC) (Primary Dx); Ulcer of right foot, limited to breakdown of skin (CMS/HCC); Type 2 diabetes mellitus with peripheral neuropathy (CMS/HCC); Neuropathy Start: 09-19-2024 End: 09-19-2024 ambulatory IDANIA Maeve PETZNICK Not Available Start: 09-12-2024 End: 09-12-2024 Telephone encounter Idania Rossick DO Work Phone: [facility] Start: 09-12-2024 End: 09-12-2024 ambulatory [facility] Start: 09-05-2024 End: 09-05-2024 ambulatory [facility] Start: 09-04-2024 End: 09-04-2024 Office outpatient visit 15 minutes Idania Mcfarlane Petznick DO Work Phone: [facility] 230 Comment on above: Chronic venous insuf ficiency (Primary Dx); Lymphedema Start: 09-04-2024 End: 09-04-2024 ambulatory IDANIA ROSSICK Not Available Start: 09-01-2024 End: 09-01-2024 Telephone encounter Idania Monahanznick DO Work Phone: [facility] Start: 08-28-2024 End: 08-29-2024 Emergency department patient visit Idaniakavita Monahantanoick DO Work Phone: [facility]-Emergency Room Work Phone: Start: 08-22-2024 End: 08-22-2024 ambulatory [facility] Start: 08-22-2024 End: 08-22-2024 ambulatory [facility] Start: 08-08-2024 End: 08-08-2024 ambulatory [facility] Start: 08-08-2024 ambulatory UNKNOWN BRADLEY SHELLEY [facility] Start: 08-07-2024 End: 08-07-2024 Office outpatient visit 25 minutes Idania Mcfarlane Petznick DO Work Phone: [facility] [...] edema, with long-term current use of insulin ([facility]); Chronic kidney disease with end stage renal disease on dialysis due to type 2 diabetes mellitus ([facility]); Anxiety; Dependence on renal dialysis ([facility]); Pure hypercholesterolemia ([facility]); Long-term insulin use ([facility]); Hx of amputation of lesser toe, left ([facility]) ([facility]); Class 3 severe obesity due to excess calories with serious comorbidity and body mass index (BMI) of 40.0 to 44.9 in adult ([facility]); Inguinal adenopathy Start: 08-07-2024 End: 08-07-2024 ambulatory IDANIA RICKETTS Not Available Start: 07-28-2024 End: 07-28-2024 ambulatory [facility] Start: 07-27-2024 End: 07-27-2024 ambulatory [facility] Start: 07-27-2024 End: 07-27-2024 Encounter for preprocedural cardiovascular examination [facility] Start: 07-25-2024 End: 07-25-2024 ambulatory [facility] Start: 07-18-2024 End: 07-18-2024 ambulatory [facility] Start: 07-11-2024 Encounter for prepro cedural cardiovascular examination [facility] Start: 07-11-2024 End: 07-11-[address] [facility] Start: 07-11-2024 ambulatory [facility] Start: 06-29-2024 End: 06-29-2024 Bamboo flowsheet Gi Mondragon DPM Work Phone: [facility] Start: 06-29-2024 End: 06-29-2024 Bamboo flowsheet Gi Mondragon DPM Work Phone: [facility] Start: 06-29-2024 End: 06-29-2024 Patient encounter procedure Gi Mondragon DPM Work Phone: [facility] Comment on above: Ulcer of right heel and midfoot with fat layer exposed (CMS/HCC) (Primary Dx); Ulcer of right foot, limited to breakdown of skin (CMS/HCC); Type 2 diabetes mellitus with peripheral neuropathy (CMS/HCC); Neuropathy Start: 06-29-2024 End: 06-29-2024 ambulatory GI MONDRAGON Not Available Start: 06-22-2024 End: 06-22-2024 ambulatory [facility] Start: 06-20-2024 End: 06-20-2024 ambulatory ANYA HENLEY [facility] Start: 06-13-2024 End: 06-13-2024 [facility] Start: 06-08-2024 End: 06-08-2024 Bamboo flowsheet Gi Mondragon DPM Work Phone: [facility] Start: 06-08-2024 End: 06-08-2024 Bamboo flowsheet Gi Mondragon DPM Work Phone: [facility] Start: 06-08-2024 End: 06-08-2024 Patient encounter procedure Gi Mondragon DPM Work Phone: [facility] Comment on above: Ulcer of right heel and midfoot with fat layer exposed (CMS/HCC) (Primary Dx); Type 2 diabetes mellitus with peripheral neuropathy (CMS/HCC); Neuropathy Start: 06-08-2024 End: 06-08-2024 ambulatory GI MONDRAGON Not Available Start: 05-30-2024 End: 05-31-2024 Telephone encounter Sophia Martini MA [facility] Start: 05-26-2024 End: 05-26-2024 ambulatory ADAMS TATE [facility] Start: 05-23-2024 ambulatory [facility] Start: 05-18-2024 End: 05-18-2024 Bamboo flowsheet Gi Mondragon DPM Work Phone: [facility] Start: 05-18-2024 End: 05-18-2024 Bamboo flowsheet Gi Mondragon DPM Work Phone: [facility] Start: 05-18-2024 End: 05-18-2024 Patient encounter procedure Gi Mondragon DPM Work Phone: [facility] Comment on above: Ulcer [...] 15 minutes Idania Ricketts DO Work Phone: [facility] 230 Comment on above: Type 2 diabetes conrad itus with peripheral neuropathy (CMS/HCC) (Primary Dx); Anxiety Start: 05-15-2024 End: 05-15-2024 Emergency department patient visit DO Idania Ricketts Work Phone: [facility]Emergency Room Work Phone: Start: 05-04-2024 End: 05-04-2024 Bamboo flowsheet Gi Mondragon DPM Work Phone: [facility] Start: 05-04-2024 End: 05-04-2024 Bamboo flowsheet Gi Mondragon DPM Work Phone: [facility] Start: 05-04-2024 End: 05-04-2024 Patient encounter procedure Gi Mondragon DPM Work Phone: [facility] Comment on above: Ulcer of right heel and midfoot with fat layer exposed (CMS/HCC) (Primary Dx); Ulcer of right foot, limited to breakdown of skin ([facility]) Start: 05-04-2024 End: 05-04-2024 ambulatory GI H MONDRAGON Not Available Start: 04-26-2024 End: 04-27-2024 Apoloniaalicia Guadalupe [facility] [employer] [facility] 230 Comment on above: 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 ([facility]) Start: 04-13-2024 End: 04-13-2024 ambulatory GI H [...] surgery center DO Idania Petznick Work Phone: [facility] [place] Start: 02-04-2024 End: 02-04-2024 ambulatory DO Idania Petznick Work Phone: [facility] Work Phone: Start: 02-02-2024 End: 02-02-2024 ambulatory GI H MONDRAGON Not Available Start: 01-24-2024 End: 01-24-2024 ambulatory GI H MONDRAGON Not Available Start: 2024 End: 2024 ambulatory GI H MONDRAGON Not Available Start: 01-03-2024 End: 01-03-2024 ambulatory DO Idania Petznick Work Phone: [facility] Work Phone: Start: 01-03-2024 End: 01-03-2024 Patient encounter procedure DO Idania Petznick Work Phone: [facility] Vascular Surgery Work Phone: Start: 12-27-2023 End: 12-27-2023 ambulatory GI Sellers MONDRAGON Not Available Start: 12-24-2023 End: 12-24-2023 Admission to same day surgery center DO Idania Petznick Work Phone: [facility] [place] Start: 12-24-2023 End: 12-24-2023 ambulatory DO Idania Petznick Work Phone: [facility] Work Phone: Start: 12-21-2023 End: 12-21-2023 ambulatory GI MONDRAGON Not Available Start: 12-08-2023 End: 12-08-2023 ambulatory GI Marlo MONDRAGON Not Available Start: 12-06-2023 End: 12-06-2023 ambulatory DO Idania Petznick Work Phone: [facility] Work Phone: Start: 12-06-2023 End: 12-06-2023 Patient encounter procedure DO Idania Petznick Work Phone: [facility] Vascular Surgery Work Phone: Start: 11-25-2023 End: 11-25-2023 Emergency department patient visit DO Idania Petznick Work Phone: [facility]-Emergency Room Work Phone: Start: 11-22-2023 End: 11-23-2023 Non-patient / Non-visit DO Idania Petznick Work Phone: [facility] Infectious Disease Work Phone: Start: 11-21-2023 End: 11-23-2023 Non-patient / Non-visit DO Idania Petznick Work Phone: [facility] Nephrology Work Phone: Start: 11-20-2023 End: 11-23-2023 Non-patient / Non-visit DO Idania Petznick Work Phone: [facility] Med OutPt Work Phone: Start: 11-20-2023 End: 11-23-2023 Evaluation and management of inpatient DO Idania Petznick Work Phone: [facility] [place] Med Surg Work Phone: Start: 11-15-2023 End: 12-21-2023 ambulatory DO Idania Petznick Work Phone: [facility] Work Phone: Start: 11-15-2023 End: 12-21-2023 Discharged Recurring DO Idania Petznick Work Phone: [facility]-Infusion Therapy - O/P Work Phone: Start: 11-15-2023 Registered Recurring DO Alliso n Petznick Work Phone: [facility] - [facility] Work Phone: Start: 11-08-2023 End: 11-08-2023 Patient encounter procedure DO Idania Petznick Work Phone: [facility] Vascular Surgery Work Phone: Start: 10-27-2023 End: 10-27-2023 Admission to same day surgery center DO Idania Petznick Work Phone: [facility] [place] Start: 10-27-2023 End: 10-27-2023 ambulatory DO Idania Petznick Work Phone: [facility] Work Phone: Start: 10-18-2023 External Result Encounter Flakito High DO Work Phone: [facility] External [facility] Unsolicited Start: 10-18-2023 External Result Encounter Flakito High DO Work Phone: [facility] External Department Unsolicited Start: 10-18-2023 End: 10-18-2023 ambulatory DO Idania Petznick Work Phone: [facility] Work Phone: Start: 10-18-2023 End: 10-18-2023 Patient encounter procedure DO Idania Petznick Work Phone: [facility] Work Phone: Start: 10-13-2023 Chart abstracting Flakito bah DO Work Phone: [facility] Start: 10-13-2023 End: 10-13-2023 Office outpatient visit 25 minutes Flakito High DO Work Phone: [facility] Comment on above: Peritoneal dialysis catheter dysfunction, subsequent encounter (CMS/HCC) (Primary Dx) Start: 10-07-2023 End: 10-07-2023 ambulatory Tondra Kennedy Other [facility] Other Start: 10-07-2023 Telephone encounter Michelle Kennedy [facility] Start: 10-06-2023 Non-patient / Non-visit DO All kavita Petznick Work Phone: [facility] Vascular Surgery Work Phone: Start: 10-04-2023 End: 10-04-2023 ambulatory Ramirez Jean Other [employer] Other Start: 10-04-2023 Office outpatient vi sit 25 minutes Ramirez Jean [facility] Vascular Surgery Start: 10-04-2023 End: 10-04-2023 Patient encounter procedure DO Idania Petznick Work Phone: [facility]- Start: 09-27-2023 End: 09-27-2023 ambulatory DO Idania Petznick Work Phone: [facility] Work Phone: Start: 09-27-2023 End: 09-27-2023 Patient encounter procedure DO Idania Petznick Work Phone: [facility] [place] Work Phone: Start: 09-25-2023 End: 09-26-2023 Emergency department patient visit DO Idania Pettanoick Work Phone: [facility]-Emergency Room Work Phone: Start: 09-16-2023 End: 09-16-2023 Admission to same day surgery center DO Idania Petznick Work Phone: [facility] [place] Start: 09-16-2023 End: 09-16-2023 ambulatory DO Idania Petznick Work Phone: [facility] Work Phone: Start: 08-26-2023 End: 08-26-2023 ambulatory Rasheeda Fitt Other [employer] Other Start: 08-26-2023 Telephone encounter Rasheeda Fitt [facility] Start: 08-10-2023 End: 08-10-2023 ambulatory Tondra Mapus Other [employer] Other Start: 08-10-2023 Telephone encounter Tondra Mapus [facility] Start: 08-09-2023 End: 08-09-2023 Emergency department patient visit DO Idania Rossick Work Phone: [facility]Emergency Room Work Phone: Start: 07-27-2023 End: 07-27-2023 ambulatory Tondra Mapus Other [employer] Other Start: 07-27-2023 Telephone encounter Tondra Mapus [facility] Start: 07-14-2023 End: 07-14-2023 ambulatory Tondra Mapus Other [employer] Other Start: 07-14-2023 Telephone encounter Tondra Mapus [facility] Start: 07-07-2023 End: 07-07-2023 ambulatory Tondra Mapus Other [employer] Other Start: 07-07-2023 Telephone encounter Tondra Mapus [facility] Start: 06-28-2023 End: 06-28-2023 ambulatory Tondra Mapus Other [employer] Other Start: 06-28-2023 Telephone encounter Tondra Mapus [facility] Start: 06-26-2023 End: 06-26-2023 ambulatory DO Idania Ricketts Work Phone: [facility] Work Phone: Start: 06-26-2023 End: 06-26-2023 Patient encounter procedure DO Idania Ricketts Work Phone: [facility] [place] Work Phone: Start: 06-22-2023 End: 06-22-2023 ambulatory Tondra Mapus Other [facility] Other Start: 06-22-2023 Telephone encounter Tondra Mapus [facility] Start: 06-21-2023 End: 06-21-2023 ambulatory Tondra Mapus Other [facility] Other Start: 06-21-2023 Telephone encounter Tondra Mapus [facility] Start: 06-16-2023 Registered Recurring DO Alliso n Petznick Work Phone: [facility] Work Phone: Start: 06-16-2023 End: 06-16-2023 ambulatory Tondra Mapus Other [facility] Other Start: 06-16-2023 FQHC visit new patient Tondra Mapus [facility] Start: 03-11-2023 Office Services Sj P November and Other [facility] Start: 01-29-2023 Office Services Sj P November and Other [facility] Start: 12-18-2022 Office Services Sj P November and Other [facility] Start: 12-04-2022 (Dialysis T) Dialysi s Training Ada Moody [facility] Start: 12-04-2022 End: 12-04-2022 ambulatory Ada Moody Other [facility] Other Start: 11-20-2022 End: 11-20-2022 ambulatory DO Idania Petznick Work Phone: [facility] Work Phone: Start: 11-20-2022 End: 11-20-2022 Patient encounter procedure DO Idania Petznick Work Phone: [facility] [place] Work Phone: Start: 11-13-2022 Office Services Sj P November and Other [facility] Office Start: 11-04-2022 End: 11-07-2022 Evaluation and management of inpatient DO Idania Petznick Work Phone: [facility] [place] [facility] Work Phone: Start: 11-04-2022 End: 11-04-2022 ambulatory Ada Moody Other [facility] [employer] Other Start: 11-04-2022 Telephone encounter Ada Moody [facility] Start: 11-02-2022 End: 11-02-2022 ambulatory DO Idania Petznick Work Phone: [facility] Work Phone: Start: 11-02-2022 End: 11-02-2022 Patient encounter procedure DO Idania Petznick Work Phone: [facility] [place] Work Phone: Start: 11-01-2022 End: 11-01-2022 Emergency department patient visit DO Idania Petznick Work Phone: [facility] Work Phone: Start: 10-26-2022 Office Services Sj Hoffman and Other [facility] Start: 10-10-2022 End: 10-10-2022 Emergency department patient visit DO Idania Petznick Work Phone: [facility] Work Phone: Start: 10-09-2022 End: 10-10-2022 ambulatory Sj Francois DPM Facility:[facility] Start: 10-09-2022 Office Services Sj Hoffman and Other [facility] Start: 09-22-2022 End: 09-23-2022 Emergency department patient visit DO Idania Petznick Work Phone: [facility] Work Phone: Start: 08-14-2022 Office Services Sj Hoffman and Other [facility] Start: 08-12-2022 End: 08-12-2022 ambulatory Ada Moody Other [facility] Other Start: 08-12-2022 Office outpatient vi sit 25 minutes Ada Moody [facility] [place] Start: 08-12-2022 Telephone encounter Ada Moody [facility] Start: 08-03-2022 End: 08-03-2022 ambulatory DO Idania Petznick Work Phone: [facility] Work Phone: Start: 08-03-2022 End: 08-03-2022 Patient encounter procedure DO Idania Petznick Work Phone: [facility] Start: 07-28-2022 End: 07-29-2022 Emergency department patient visit DO Idania Petznick Work Phone: [facility] Start: 07-24-2022 Office Services Sj Stallworth Other [facility] Start: 07-17-2022 End: 07-18-2022 ambulatory Sj Francois DPMaeve Facility:[facility] Start: 07-17-2022 Office outpatient ne w 30 minutes Sj Francois Other [facility] Office Start: 06-27-2022 End: 06-27-2022 ambulatory DO Idania Petznick Work Phone: [facility] Work Phone: Start: 06-27-2022 End: 06-27-2022 Patient encounter procedure DO Idania Petznick Work Phone: [facility] Start: 06-18-2022 Encounter for prepro cedural laboratory examination DR MARC [facility] Start: 06-16-2022 End: 06-16-2022 ambulatory Ada Moody Other [employer] Other Start: 06-16-2022 Telephone encounter Ada Moody [facility] Start: 06-15-2022 End: 06-16-[address] IDANIA RICKETTS Facility:[facility] Start: 06-15-2022 End: 06-16-2022 Encounter for preprocedural laboratory examination DR IDANIA RICKETTS Facility:[facility] Start: 05-20-2022 End: 05-20-2022 ambulatory Ada Moody Other [facility] [employer] Other Start: 05-20-2022 Office outpatient vi sit 25 minutes Ada Moody [facility] [place] Start: 05-16-2022 End: 05-16-2022 Patient encounter procedure DO Idania Petznick Work Phone: [facility] Start: 05-01-2022 End: 05-02-2022 ambulatory BERTIN YVONNE Facility:[facility] Start: 03-12-2022 End: 03-12-2022 ambulatory Ada Moody Other [employer] Other Start: 03-12-2022 Office outpatient vi sit 25 minutes Ada Moody [facility] [place] Start: 03-06-2022 End: 03-07-2022 ambulatory KEVIN WILKES Facility:[facility] Start: 02-26-2022 End: 02-27-2022 ambulatory KEVIN WILKES Facility:[facility] Start: 02-25-2022 End: 02-25-2022 ambulatory Ada Moody Other [employer] Other Start: 02-25-2022 Telephone encounter Ada Moody [facility] Start: 02-20-2022 End: 02-20-2022 Patient encounter procedure DO Idania Ricketts Work Phone: [facility] Start: 02-19-2022 End: 02-20-2022 ambulatory KEVIN WILKES Facility:[facility] Start: 02-09-2022 End: 02-10-2022 ambulatory KEVIN WILKES Facility:[facility] Start: 01-27-2022 End: 01-28-[address] IDANIA RICKETTS Facility:[facility] Start: 01-21-2022 End: 01-21-2022 ambulatory KEVIN WILKES Facility:[facility] Start: 12-31-2021 End: 01-01-2022 ambulatory KEVIN WILKES Facility:[facility] Start: 12-03-2021 End: 12-03-2021 ambulatory Ada Moody Other [employer] Other Start: 12-03-2021 Office outpatient vi sit 25 minutes Ada Moody [facility] [place] Procedures Date Procedure Procedure Detail Performing Clinician [...] Influenz a & RSV (PCR) DO Idania Petznaston Work Phone: Start: 09-16-2023 Plain chest X-ray DO Al lison Petznick Work Phone: Start: 09-16-2023 Fluoroscopic guidance D O Idania Nabriva [employer] Work Phone: Start: 09-02-2023 Debridement muscle & [...] inserti on of peritoneal dialysis catheter DO Anxa Work Phone: Start: 11-05-2022 SARS-CoV-2, Influenz a & RSV (PCR) DO Anxa Work Phone: Start: 11-04-2022 Plain chest X-ray DO Al amy [employer] Work Phone: Start: 11-01-2022 Plain chest X-ray DO Al amy [employer] Work Phone: Start: 11-01-2022 Screening for occult blood in feces DO Anxa Work Phone: Start: 10-09-2022 Duplex scan of lower limb veins Sj Alessandro Start: 09-25-2022 Debridement muscle & fascia 20 sq cm/< Sj P Aless[facility] Other Start: 09-03-2022 Colonoscopy Flakito Laffa y DO Work Phone: Start: 08-14-2022 Foot destructive procedure Sj Alessandro Start: 08-14-2022 Procedure on wound Geronimo velasquez Aelssandro Start: 07-24-2022 Evaluation AND/OR wen cummins - established patient Sj Alessandro Start: 07-23-2022 Docrev cur meds by [facility] Sj [facility] Start: 07-23-2022 Procedure on wound Geronimo eva Alessandro Start: 07-17-2022 Docrev cur meds by [facility] Sj [facility] Start: 07-17-2022 Procedure on wound Geronimo eva Alessandro Start: 07-17-2022 Wound microscopy, cu lture and sensitivities Sj Alessandro Start: 04-07-2022 PSA screening BERTIN [facility] Comment on above: Order Comment: only males 40 and older Performed By: #### 4 [id number], [id number], [id number], [id number] #### [facility] [address] Plan of Treatment Date Care Activity Detail Author Start: 06-20-2034 Screening for malign ant neoplasm of colon [facility] Start: 09-03-2032 Screening for malign ant neoplasm of colon [facility] Start: 05-01-2031 DTaP,Tdap and Td Vac cines (3 - Td or Tdap) DTaP,Tdap and Td Vaccines (3 - Td or Tdap) [facility] Start: 05-10-2026 Adult BMI Screening Adult BMI Screen ing [facility] Start: 05-10-2026 Tobacco Screening Tobacco Screening [facility] Start: 04-10-2026 Adult BMI Screening Adult BMI Screen ing [facility] Start: 04-10-2026 Tobacco Screening Tobacco Screening [facility] Start: 04-05-2026 Adult BMI Screening Adult BMI Screen ing [facility] Start: 04-05-2026 Tobacco Screening Tobacco Screening [facility] Start: 12-28-2025 Statin Use: Diabetic Statin Use: Tawana betic [facility] Start: 06-22-2025 Urine screening for protein Diabetes: Urine Protein Screening [facility] Start: 06-19-2025 End: 06-19-2025 Patient encounter procedure 06/19/2025 10:45 AM EDT Office Visit [facility] [address] [place] [address] Kaylee Mesa PA [address] [place] [address] [facility] Start: 05-25-2025 End: 05-25-2025 Admission to same day surgery center 05/25/2025 12:59 PM EDT - 05/25/2025 1:06 PM EDT Surgery [facility] [address] [place] [address] Alec Jacobson MD [address] [facility] [place] [address] INJECTION BLOCK EPIDURAL CAUDAL STEROID [facility] Comment on above: INJECTION BLOCK EPID URAL CAUDAL STEROID Start: 05-25-2025 End: 05-25-2025 INJECTION BLOCK EPIDURAL CAUDAL STEROID INJECTION BLOCK EPIDURAL CAUDAL STEROID Spinal stenosis of lumbar region with neurogenic claudication 05/25/2025 12:[address] [facility] Start: 05-25-2025 Subsequent hospital visit by physician 05/25/2025 12:59 PM EDT Hospital Encounter [facility] [address] [place] [phone] Alec Jacobson MD [address] [place] [address] [facility] Start: 05-23-2025 Urine screening for protein Diabetes: Urine Protein Screening [facility] Start: 05-22-2025 End: 05-22-2025 Patient encounter procedure 05/22/2025 4:00 PM EDT Office Visit [facility] [address] [place] [phone] Idania Ricketts, DO [address] [place] [address] [facility] 230 Start: 05-17-2025 End: 05-17-2025 Patient encounter procedure 05/17/2025 10:30 AM EDT Office Visit [facility] [address] [place] [address] [place] [phone] Chintan Quinn, DO [address] [facility] [address] [place], [place] [id number] [facility] Start: 05-10-2025 End: 05-10-2025 Patient encounter procedure 05/10/2025 1:00 PM EDT Office Visit [facility] [address] [place] [address] Kaylee Mesa PA [address] [place] [address] [facility] Start: 05-07-2025 COVID-19 Vaccine ( season) COVID-19 Vaccine ( season) [facility] Start: 05-07-[address] [facility] Start: 04-27-2025 End: 04-27-2025 Admission to same day surgery center 04/27/2025 1:55 PM EDT - 04/27/2025 2:02 PM EDT Surgery [facility] [address] [place] [phone] Alec Jacobson MD [address] [place] [address] INJECTION BLOCK EPIDURAL CAUDAL STEROID [83598 (CPT )] [facility] Comment on above: INJECTION BLOCK EPID URAL CAUDAL STEROID [44177 (CPT )] Start: 04-27-2025 Subsequent hospital visit by physician 04/27/2025 1:55 PM EDT Hospital Encounter [facility] [address] [place] [address] Alec Jacobson MD [address] [place], [place] [id number] [facility] Start: 04-27-2025 End: 04-27-2025 Njx dx/ther sbst intrlmnr lmbr/sac w/img gdn [facility] Start: 04-06-2025 Influenza vaccination Flu vaccine (# 1) [facility] Start: 03-05-2025 Influenza vaccination Influenza Vacc ine (#1) [facility] Comment on above: Postponed from 05/07 (Supply/Drug Shortage) Start: 01-06-2025 Glaucoma screening Diabetes: R etinopathy Screening [facility] Start: 12-05-2024 End: 12-05-2024 Patient encounter procedure 12/05/2024 2:00 PM EDT Office Visit [facility] [address] [place] [phone] Idania Ricketts, DO [address] [place] [address] Arrived [facility] 230 Comment on above: Arrived Start: 11-27-2024 Duplex scan of lower limb veins US venous duplex LE RT [facility] Start: 11-27-2024 US Lower extremity v ein - right [facility] Start: 11-08-2024 [facility] Start: 11-07-2024 [facility] Start: 11-06-2024 End: 11-06-2024 Patient encounter procedure 11/06/2024 11:30 AM EST Office Visit [facility] [address] [place] [phone] Idania Ricketts, DO [address] [place] [address] [facility] Start: 11-06-2024 [facility] Start: 11-05-2024 [facility] Start: 11-04-2024 [facility] Start: 11-03-2024 [facility] Start: 11-02-2024 [facility] Start: 11-01-2024 [facility] Start: 10-31-2024 [facility] Start: 10-30-2024 [facility] Start: 10-29-2024 [facility] Start: 10-29-2024 MRI of right foot wi th contrast MR foot RT wo/w con [facility] Start: 02-23-2025 Hospital admission [facility] Start: 10-29-2024 Patient referral to dietitian [facility] Start: 10-29-2024 Referral to infectio us diseases physician [facility] Start: 10-29-2024 Referral to raw cheese worker [facility] Start: 10-29-2024 Referral to service worker [facility] Start: 10-29-2024 [facility] Start: 10-29-2024 [facility] Start: 10-29-2024 Bacteria identified in Blood by Culture Blood Culture [facility] Start: 10-12-2024 End: 10-12-2024 Patient encounter procedure 10/12/2024 9:45 AM EST Office Visit [facility] [address] [place] [phone] Gi Mondragon, DPM [address] [place] [address] [facility] Start: 10-11-2024 Hemoglobin A1c measurement Diabetes: Hemoglobin A1C [facility] Start: 10-03-2024 End: 10-03-2024 Patient encounter procedure 10/03/2024 9:30 AM EST Office Visit [facility] [address] [place] [address] Gi Mondragon, DPM [address] [place] [address] [facility] Start: 09-30-2024 Medicare Annual Well ness (AWV) Medicare Annual Wellness (AWV) [facility] Start: 09-12-2024 End: 09-12-2024 Patient encounter procedure 09/12/2024 9:30 AM EST Office Visit [facility] [address] [place] [phone] Gi Mondragon, DPM [address] [place] [address] [facility] Start: 09-06-2024 Annual Wellness Visi t (Medicare Advantage) Annual Wellness Visit (Medicare Advantage) [facility] Start: 08-29-2024 End: 08-29-2024 Patient encounter procedure 08/29/2024 9:30 AM EST Office Visit [facility] [address] [place] [address] Gi Mondragon, DPM [address] [place] [address] [facility] Start: 08-08-2024 End: 08-08-2024 Patient encounter procedure 08/08/2024 9:30 AM EST Office Visit [facility] [address] [place] [address] Gi Mondragon, DPM [address] [place] [address] [facility] Start: 07-18-2024 End: 07-18-2024 Patient encounter procedure 07/18/2024 11:00 AM EST Office Visit [facility] [address] [place] [address] Gi Mondragon, DPM [address] [place] [address] [facility] Start: 06-30-2024 End: 06-30-2024 Patient encounter procedure [facility] 230 Comment on above: Type 2 diabetes conrad itus with foot ulcer, with long-term current use of insulin ([facility]) Start: 06-29-2024 End: 06-29-2024 Patient encounter procedure [facility] Comment on above: Arrived Start: 06-08-2024 End: 06-08-2024 Patient encounter [facility] Comment on above: Arrived Start: 05-27-2024 Hemoglobin A1c measurement Diabetes: Hemoglobin A1C [facility] Start: 05-18-2024 End: 05-18-2024 Patient encounter procedure [facility] Comment on above: Arrived Start: 05-07-2024 COVID-19 Vaccine () COVID-19 Vaccine () [facility] Start: 05-07-2024 COVID-19 Vaccine ( season) COVID-19 Vaccine () [facility] Start: 05-07-2024 Influenza vaccination Influenza Vacc ine (#1) [facility] Start: 05-04-2024 End: 05-04-2024 Patient encounter procedure [facility] Comment on above: Arrived Start: 04-27-2024 Urine screening for protein Diabetes: Urine Protein Screening [facility] Start: 02-04-2024 [facility] Start: 12-30-2023 End: 12-30-2023 Patient encounter procedure 12/30/2023 1:15 PM EDT Office Visit [facility] [address] [place] [address] Idania Ricketts DO [address] [place] [address] [facility] Start: 12-24-2023 [facility] Start: 12-18-2023 Glaucoma screening Diabetes: R etinopathy Screening [facility] Start: 12-06-2023 Ultrasonography of arteriovenous fistula US AV Fistula [facility] Start: 12-06-2023 US AV fistula [facility] Start: 11-25-2023 [facility] Start: 11-24-2023 [facility] Start: 11-23-2023 End: 11-23-2023 [facility] Start: 11-22-2023 [facility] Start: 11-21-2023 Referral to infectio us diseases physician [facility] Start: 11-21-2023 Referral to service worker [facility] Start: 11-21-2023 [facility] Start: 11-20-2023 Hospital admission [facility] Start: 11-20-2023 Referral to raw cheese worker [facility] Start: 11-20-2023 [facility] Start: 11-20-2023 Plain chest X-ray XR chest 2V* [facility] Start: 11-20-2023 XR Chest 2 Views [facility] Start: 11-20-2023 [facility] Start: 11-20-2023 Bacteria identified in Blood by Culture Blood Culture [facility] Start: 11-20-2023 Blood culture for bacteria, including anaerobic screen Blood Culture [facility] Start: 11-20-2023 Extraction of Right Foot Skin, External Approach Extraction of Right Foot Skin, External Approach [facility] Start: 11-20-2023 Performance of Urina ry Filtration, Intermittent, Less than 6 Hours Per Day Performance of Urinary Filtration, Intermittent, Less than 6 Hours Per Day [facility] Start: 11-10-2023 End: 11-10-2023 Patient encounter procedure 11/10/2023 9:30 AM EST [facility] [address] [place] [phone] Flakito High, DO [address] [place] [address] [facility] Start: 11-01-2023 End: 11-01-2023 Patient encounter procedure 11/01/2023 12:15 PM EST Procedure Visit [facility] Flakito High, DO [address] [place] [address] [facility] Start: 10-27-2023 [facility] Start: 10-13-2023 End: 10-13-2023 Patient encounter procedure 10/13/2023 11:15 AM EST [facility] [address] [place] [phone] Flakito High, DO [address] [place] [address] [facility] Start: 10-06-2023 [facility] Start: 10-06-2023 [facility] Start: 09-27-2023 US angiography US map hemodia l access SLIM [facility] Start: 09-27-2023 US Unspecified body region [facility] Start: 09-25-2023 Plain chest X-ray XR chest 1V portab le [facility] Start: 09-25-2023 [facility]R Chest [facility] Start: 09-16-2023 [facility] Start: 09-16-2023 [facility] Start: 07-28-2023 Hemoglobin A1c measurement Diabetes: Hemoglobin A1C [facility] Start: 05-07-2023 Influenza vaccination Influenza Vacc ine (#1) [facility] Start: 03-11-2023 Debridement open wou nd 20 sq cm/< Active debridement of wound 20 square centimeters or less [facility] Start: 11-20-2022 Hepatitis B core ant ibody measurement [facility] Start: 11-20-2022 [facility] Start: 11-08-2022 Blood chemistry [facility] Start: 11-08-2022 [facility] Start: 11-07-2022 Blood chemistry [facility] Start: 11-07-2022 End: 11-07-2022 [facility] Start: 11-06-2022 Blood chemistry [facility] Start: 11-06-2022 [facility] Start: 11-05-2022 Blood chemistry [facility] Start: 11-05-2022 [facility] Start: 11-04-2022 Hospital admission [facility] Start: 11-04-2022 Referral to raw cheese worker [facility] Start: 11-04-2022 [facility] Start: 11-04-2022 Insertion of Infusio n Device into Peritoneal Cavity, Percutaneous Endoscopic Approach Insertion of Infusion Device into Peritoneal Cavity, Percutaneous Endoscopic Approach [facility] Start: 11-01-2022 [facility] Start: 11-01-2022 Plain chest X-ray XR chest 2V* [facility] Start: 11-01-2022 XR Chest 2 Views [facility] Start: 10-09-2022 Dup-scan xtr veins unilateral/limited study [employer] Start: 07-17-2022 Cul bact xcpt urine blood/stool aerobic isol Wound culture and sensitivity [employer] Start: 05-19-2022 Urine screening for protein Diabetes: Urine Protein Screening [facility] Start: 01-11-2016 Screening for malign ant neoplasm of colon [facility] Start: 2006 Diabetes screen Diabetes screen [facility] Start: 1991 Hepatitis B vaccine (1 of 3 - Risk Dialysis 4-dose series) Hepatitis B vaccine (1 of 3 - Risk Dialysis 4-dose series) [facility] Start: 1990 DTaP/Tdap/Td vaccine (1 - Tdap) DTaP/Tdap/Td vaccine (1 - Tdap) [facility] Start: 1990 Pneumococcal 50+ yea rs Vaccine (1 of 2 - PCV) Pneumococcal 50+ years Vaccine (1 of 2 - PCV) [facility] Start: 1989 Adult BMI Follow Up Plan Adult BMI Follow Up Plan [facility] Start: 1989 Diabetic foot examination Diabetic F oot Exam [facility] Start: 1989 Hepatitis C screening Hepatitis C sc reen [facility] [facility] Start: 1986 HIV screening HIV screen [facility] Start: 1983 Depression Screen Depression Screen [facility] Start: 1983 Depression Screening Depression Scre ening [facility] Start: 1981 Lipid panel Lipids [facility] LOYAL3 Start: 1971 Glaucoma screening Diabetic Op hthalmology Exam [facility] Start: 1971 Screening for malign ant neoplasm of colon [facility] Start: 1971 Tobacco Counseling Tobacco Counselin g [facility] Anion gap measurement [facility] aPTT in Platelet poo r plasma by Coagulation assay [facility] Basophils [#/volume] in Blood by Automated count [facility] Basophils/100 leukoc ytes in Blood by Automated count [facility] CBC W Auto Different ial panel - Blood CBC and differential Lab Routine Bilious vomiting with nausea Ordered: 10/02/2024 [facility] Comment on above: Ordered: 10/02/2024 Comprehensive metabo lic 2000 panel - Serum or Plasma Comprehensive metabolic panel Lab Routine Bilious vomiting with nausea Ordered: 10/02/2024 [facility] Work Phone: Comment on above: Ordered: 10/02/2024 Eosinophils/100 leukocytes in Blood by Automated count [facility] Erythrocyte distribu tion width [Ratio] by Automated count [facility] Erythrocytes [#/volu me] in Blood [facility] Glucose measurement estimated from glycated hemoglobin [facility] Hematocrit [Volume Fraction] of Blood [facility] Hemoglobin [Mass/vol ume] in Blood [facility] Hemoglobin A1c/Hemoglobin.total in Blood [facility] INR in Platelet poor plasma by Coagulation assay [facility] Insulin C-peptide measurement [facility] Leukocytes [#/volume ] corrected for nucleated erythrocytes in Blood by Automated coun [facility] Leukocytes [#/volume ] in Blood [facility] Lymphocytes [#/volum e] in Blood by Automated count [facility] Lymphocytes/100 leukocytes in Blood by Automated count [facility] MCH [Entitic mass] b y Automated count [facility] MCHC [Mass/volume] b y Automated count [facility] MCV [Entitic volume] by Automated count [facility] Monocytes [#/volume] in Blood by Automated count [facility] Monocytes/100 leukoc ytes in Blood by Automated count [facility] Neutrophils [#/volum e] in Blood by Automated count [facility] Neutrophils/100 leukocytes in Blood by Automated count [facility] Nucleated erythrocyt es [Presence] in Blood by Automated count [facility] Patient Education [facility] Work Phone: Patient referral [facility] Work Phone: Platelet mean volume [Entitic volume] in Blood by Automated count [facility] Platelets [#/volume] in Blood [facility] Prothrombin time (PT) [facility] Renal function 2000 panel - Serum or Plasma [facility] End: 02-02-2025 SPECIMEN REJECTION [facility] Comment on above: Once for 1 Occurrenc es starting 02/02/2025 until 02/02/2025 Thyrotropin [Units/volume] in Serum or Plasma TSH Lab Routine Bilious vomiting with nausea Ordered: 10/02/2024 [facility] Comment on above: Ordered: 10/02/2024 US AV fistula [facility] Immunizations Immunization Date Immunization Notes Care Provider Fa cility 06-20-2024 influenza virus vaccine, unspecified formulation Kaylee Mesa PA Work Phone: Variable 11-13-2022 zoster vaccine recombinant Flakito Laffay DO Work Phone: [facility] 11-05-2022 influenza, injectabl e, quadrivalent, preservative free DO Idania Petznick Work Phone: [facility] 11-05-2022 influenza virus vaccine, unspecified formulation Flakito Laffay DO Work Phone: [facility] 08-12-2021 COVID-19 Ad26.COV2.S (Billie) DO Idania Petznick Work Phone: [facility] 01-23-2021 COVID-19 Ad26.COV2.S (Billie) DO Idania Petznick Work Phone: [facility] 06-18-2019 influenza, high dose seasonal, preservative-free Flakito Laffay DO Work Phone: [facility] 06-18-2019 influenza, injectabl e, quadrivalent, preservative free DO Idania Petznick Work Phone: [facility] 06-29-2014 seasonal influenza, intradermal, preservative free Flakito Laffay DO Work Phone: [facility] 06-26-2013 seasonal influenza, intradermal, preservative free Flakito Laffay DO Work Phone: [facility] Payers Date Payer Category Payer Medicare HMO [employer] [id number] 2024 Medicare [id number] 2023 Medicare (Managed Care) [id number] 2023 Private Health Insurance [id number] 2023 Medicare [id number]. 1.13.693. 2.7.3.440493.315 2023 Unknown [id number] 2.16.840.1.650081.3.441 2023 Medicaid 1.2.840.087735. 1.13.693. 2.7.3.917281.315 2023 Medicaid [id number] 2.16.840.1.085092.3.441 2022 Unknown 1971 Unknown [id number] 2.16.840.1.406553.3.579. 2.647 1971 Unknown [id number] 2.16.840.1.924963.3.579. 2.196 1971 Unknown [id number] 2.16.840.1.045682.3.579. 2.196 1971 Unknown [id number] 2.16.840.1.654531.3.579. 2.593 1971 Unknown [id number] 2.16.840.1.627902.3.579. 2.59 1971 Unknown [id number] 2.16.840.1.464023.3.579. 2. 1971 Unknown [id number] 2.16.840.1.048348.3.579. 2.59 1971 Unknown [id number] 2.16.840.1.551233.3.579. 2. 1971 Unknown [id number] 2.16.840.1.424654.3.579. 2. 1971 Unknown [id number] 2.16.840.1.477344.3.579. 2. 1971 Unknown [id number] 2.16.840.1.975717.3.579. 2.1258 1971 Unknown [id number] 2.16.840.1.234709.3.579. 2.1258 1971 Unknown [id number] 2.16.840.1.770145.3.579. 2.1258 1971 Unknown [id number] 2.16.840.1.984607.3.579. 2.1258 1971 Unknown [id number] 2.16.840.1.020488.3.579. 2.1258 1971 Unknown [id number] 2.16.840.1.997755.3.579. 2.1258 1971 Unknown [id number] 2.16.840.1.607110.3.579. 2.1258 1971 Unknown [id number] 2.16.840.1.619359.3.579. 2.1258 1971 Unknown [id number] 2.16.840.1.909069.3.579. 2.1258 1971 Unknown [id number] 2.16.840.1.793071.3.579. 2.1258 1971 Unknown [id number] 2.16.840.1.630469.3.579. 2.1258 1971 Unknown [id number] 2.16.840.1.919690.3.579. 2.1258 1971 Unknown [id number] 2.16.840.1.844427.3.579. 2.1258 1971 Unknown [id number] 2.16.840.1.497561.3.579. 2.1258 1971 Unknown [id number] 2.16.840.1.886037.3.579. 2.1258 1971 Unknown [id number] 2.16.840.1.511903.3.579. 2.1258 1971 Unknown [id number] 2.16.840.1.259830.3.579. 2.1258 1971 Unknown [id number] 2.16.840.1.820943.3.579. 2.1258 1971 Unknown [id number] 2.16.840.1.718833.3.579. 2.1258 1971 Unknown [id number] 2.16.840.1.235780.3.579. 2.1258 1971 Unknown [id number] 2.16.840.1.591466.3.579. 2.1258 1971 Unknown [id number] 2.16.840.1.931603.3.579. 2.1258 1971 Unknown [id number] 2.16.840.1.417791.3.579. 2.1258 1971 Unknown [id number] 2.16.840.1.099606.3.579. 2.1258 1971 Unknown [id number] 2.16.840.1.029602.3.579. 2.1258 1971 Unknown [id number] 2.16.840.1.531115.3.579. 2.1259 1971 Unknown [id number] 2.16.840.1.434415.3.579. 2.727 1971 Unknown [id number] 2.16.840.1.501248.3.579. 2. 1971 Unknown [id number] 2.16.840.1.267048.3.579. 2.173 1971 Unknown [id number] 2.16.840.1.413202.3.579. 2.1285 1971 Unknown [id number] 2.16.840.1.373543.3.579. 2.1285 1971 Unknown [id number] 2.16840.1.268017.3.579. 2.1285 1971 Unknown [id number] 2.840.1.543472.3.579. 2.1285 1971 Unknown [id number] 2.16840.1.531646.3.579. 2.1285 1971 Unknown [id number] 2.840.1.082588.3.579. 2.1285 1971 Unknown [id number] 2.840.1.185020.3.579. 2.1285 1971 Unknown [id number] 2.840.1.161985.3.579. 2.1285 1971 Unknown [id number] 2.16840.1.715015.3.579. 2.1285 1971 Unknown [id number] 2.16840.1.003540.3.579. 2.1285 1971 Unknown [id number] 2.16840.1.056662.3.579. 2.1285 1971 Unknown [id number] 2.16840.1.107856.3.579. 2.1285 1971 Unknown [id number] 2.16.840.1.671050.3.579. 2.1286 1971 Unknown [id number] 2.16.840.1.276784.3.579. 2.718 1971 Unknown [id number] 2.16.840.1.575868.3.579. 2.718 1959 Self-pay [id number] 1959 Unknown [id number] 2.840.1.559694.19 Medicare [id number] Medicare [id number] 2.0.1.375016.19 Unknown [id number] Unknown [id number] 2.840.1.382159.3.579. 2.593 Unknown [id number] 2.840.1.757837.3.579. 2.531 Unknown [id number] 2.840.1.555621.3.579. 2.531 Unknown [id number] 2.16840.1.363927.3.579. 2.531 Unknown [id number] 2.16840.1.435009.3.579. 2.531 Unknown [id number] 2.840.1.344879.3.579. 2.531 Unknown [id number] 2.840.1.562384.3.579. 2.531 Unknown [id number] 2.840.1.080743.3.579. 2.531 Unknown [id number] 2.840.1.418401.3.579. 2.531 Unknown [id number] 2.840.1.798607.3.579. 2.531 Social History Date Type Detail Facility Unknown if ever smoked [facility] Start: 09-30-2023 End: 12-05-2024 Sex Assigned At [facility] Start: 09-11-2021 End: 03-02-2023 Tobacco smoking status NHIS Never smoked tobacco (finding) [facility] Start: 1970 Sex Assigned At Male [facility] Start: 09-23-2022 Tobacco smoking status NHIS Smoker (finding) [facility] Start: 03-02-2023 End: 02-02-2025 Tobacco [...] Start: 04-11-2015 End: 10-30-2024 Sex Male (finding) [facility] Do you belong to any clubs or organizations such as taoist groups, unions, fraternal or athletic groups, or [...] now]? No [facility] Tobacco smoking status [facility] Start: 08-09-2023 Tobacco use and exposure User of smokeless tobacco [facility] History of tobacco use Chews Tobacco [facility] Start: 04-05-2025 End: 05-10-2025 Alcoholic beverage intake Current non-drinker of alcohol (finding) [facility] Medical Equipment Procedure Code Equipment Code Equipment Origin al Text Equipment Identifier Dates Wound debridement Collagen wound matrix dressing ()[id number] FDA Start: 12-24-2023 Wound debridement Collagen wound matrix dressing ()[id number] FDA Start: 02-04-2024 Wound debridement Collagen wound matrix dressing ()[id number] FDA Start: 02-04-2024 Insertion, catheter, dialysis, peritoneal, laparoscopic Peritoneal dialysis catheter, chronic ()[id number] FDA Start: 11-06-2022 Fluoroscopic guidance for insertion of tunnelled dialysis catheter Double-lumen haemodialysis catheter, implantable +[id number]$$ [id number] FDA Start: 09-16-2023 Goals Date Patient Goal Desired Activity /State Functional Status Date Assessment Result Facility 11-23-2023 Functional status Patient at [facility] Work Phone: 11-07-2022 Functional status Patient at [facility] Work Phone: [facility] Mental Status Date Assessment Result Facility 11-23-2023 Cognitive function Cognitive Sta tus Patient at [facility] Work Phone: 11-07-2022 Cognitive function Cognitive Sta tus Patient at Baseline [facility] Work Phone: Clinical Notes 08-21-2021 to 05-11-2025 KAREN Box - 05/10/2025 1:00 PM EDTPatient InstructionsDischarge InstructionsAttachmentsTelephone Encounter - Marielos Abreu RN - 04/06/2025 9:54 AM EDTPatient Instructions [...] clean and dry. General instructions ? Take qylm-jot-dmtwivj and prescription medicines only as told by [...] provider. Document Revised: 09/16/2023 Document Reviewed: 05/25/2023 [employer] Patient Education ? 2024 Smarty Ring. [facility] 05-10-2025 History of Presen t illness Narrative [facility] [address] [place] [address] Patient: Evans Forte Jr. Sex: male : 1970 Age: 55 y.o. PCP: IDANIA RICKETTS, DO 05/10/2025 Evans Forte Jr. is here for a(n) post procedure follow up 04-27-2025 Caudal injection with 50% relief x [...] 5-9am via left avf Diabetes mellitus ([facility] Diabetes mellitus type 2, controlled ([facility]) Hyperlipidemia Hypothyroid Obesity Past Surgical History: Procedure Laterality Date CARDIAC CATHETERIZATION 12/2024 last one (2 total) FISTULA CREATION Left FOOT SURGERY Right INJECTION BLOCK EPIDURAL CAUDAL STEROID N/A 04/27/2025 Performed by Alec Jacobson MD at [facility] Allergies Allergen Reactions Adhesive Tape-Silicones Rash Latex Rash If on for long periods of time Other Reaction(s): Unknown If on for long periods of time Vancomycin Hives Haloperidol Anxiety Hemphill Seed Abdominal Pain Runny nose, watery eyes [...] Resource Strain: Medium Risk (12/05/2024) Received from [facility] Overall Financial Resource Strain (CARDIA) Difficulty of Paying Living Expenses: Somewhat hard Food Insecurity: No Food Insecurity (05/10/2025) Hunger Screening Food Insecurity - Worry: Never True Food Insecurity - Inability: Never True Transportation Needs: No Transportation Needs (12/05/2024) Received from [facility] PRAPARE - Transportation Lack of Transportation (Medical): No Lack of Transportation (Non-Medical): No Physical Activity: Insufficiently Active (12/05/2024) Received from [facility] Exercise Vital Sign Days of Exercise per Week: 3 days Minutes of Exercise per Session: 30 min Stress: Stress Concern Present (12/05/2024) Received from [facility] [employer] [employer] - Occupational Stress Questionnaire Feeling of Stress : To some extent Social Connections: Socially Integrated (12/05/2024) Received from [facility] Social Connection and Isolation Panel [NHANES] Frequency of Communication with Friends and Family: More than three times a week Frequency of Social Gatherings with Friends and Family: Three times a week Attends Catholic Services: 1 to 4 times per year Active Member of Clubs or Organizations: Yes Attends Club or Organization Meetings: 1 to 4 times per year Marital Status: Interpersonal Safety: Not At Risk (12/21/2024) Received from [facility] Humiliation, Afraid, Rape, and Kick questionnaire Fear of Current or Ex-Partner: No Emotionally Abused: No Physically Abused: No Sexually Abused: No Housing Instability: High Risk (12/05/2024) Received from [facility] Housing Stability Vital Sign Unable to [...] cm (6' 2 ) Wt (!) 149.2 kg (329 lb) SpO2 99% BMI 42.24 kg/m Patient educated on the risks of high BP and symptoms that could lead to a stroke. Patient verbalized understanding. States he normally does not take his BP medications on dialysis days which are Funjnw-Ihjrextqu-Vhwumn and today he forgot to take them. [...] EPIDURAL CAUDAL STEROID Diabetic peripheral neuropathy (CMS-HCC) Continue Nortriptyline 25 mg at HS PLAN [...] as to the type of medication prescribed along with directions for use. Potential side effects have [...] prescribe any controlled substance from this practice. It is noted that the patient did have good response from the previously performed procedure. It is felt that the patient would benefit from an additional procedure of the same nature in that the same symptoms have returned. It is hopeful that this [...] Box 05/15/25 1233 documented in this encounter [facility] 05-10-2025 Instructions Minda Paiz CNA - 05/10/2025 1:00 PM [...] a safety precaution, you must have a goat driver after a lumbar nerve root injection, [...] back to normal. documented in this encounter [facility] 04-26-2025 [facility] Discharg e Magali Gamble, SHOTBLAST EQUIPMENT OPERATOR - SWINGING CUT OFF SAW OPERATOR - 04/26/2025 2:14 PM EDT Keep your appointment as scheduled for tomorrow afternoon with pain management, you were prescribed [place] here for the interim, be advised that the emergency department will not refill pain medication for chronic problem again, return for worsening symptoms The following attachments cannot be sent through Care Everywhere.Chronic Pain (Croatian)documented in this encounter [facility] 04-06-2025 Miscellaneous Notes Patient calls and asks [...] with Charla rojo, requests prescription send to [facility] specialty pharmacy in [place]. done Not done done [facility] specialty pharmacy called and stated that the [...] is not appropriate for you. Reviewed by: [facility]. If the treating physician would like to discuss this coverage decision with the physician or health primary care coordinator reviewer, please call [facility] Rx Prior Authorization department at 1- [phone]. How would you like to proceed? 1105 [...] this Wednesday, 04/27. Called Dr Nancy Altman ([facility] [phone]) requesting clearance for pt to start nortriptyline [...] Patient notified. Sent to [facility] in [place]. 1047 spoke with Guilherme @ [facility] pharmacy; she put the Nortriptyline back on the patient's profile, we can call the [place] location and have them pull it. 1050 spoke with Bari, they are able to pull the RX and fill it. documented in this encounter [facility] 04-06-2025 Telephone encounter Note Patient calls and [...] little to no relief with OTC Tylenol. [facility] 04-06-2025 Telephone encounter Note Spoke with Charla rojo, requests prescription send to [facility] pharmacy in [place]. [facility] 04-06-2025 Telephone encounter Note done [facility] 04-06-2025 Telephone encounter Note Not done [facility] 04-06-2025 Telephone encounter Note done [facility] 04-06-2025 Telephone encounter Note [facility] pharmacy called and stated that the prior auth for pt's Qutenza has been denied. [facility] 04-06-2025 Telephone encounter Note Noted let patient know [facility] 04-06-2025 Telephone encounter Note This is the [...] is not appropriate for you. Reviewed by: [facility]. If the treating physician would like to discuss this coverage decision with the physician or health primary care coordinator reviewer, please call [facility] Prior Authorization department at 1- [phone]. How would you like to proceed? [facility] 04-06-2025 Telephone encounter Note 1105 patient stopped [...] for a caudal AMBER this Wednesday, 04/27. [facility] 04-06-2025 Telephone encounter Note Called Dr Nancy Altman ([facility] [phone]) requesting clearance for pt to start nortriptyline 25 mg at HS. Spoke with Cory, he will send message and call back with response. [facility] 04-06-2025 Telephone encounter Note noted [facility] 04-06-2025 Telephone encounter Note 9:25 AM TC from WILIAN Koenig at Dr. Altman's nephrology office. Per Dr. Altman, ok for patient to start Nortriptyline 25 mg at HS from nephrology standpoint. If Dr. Jacobson has additional questions, he can contact Dr. Altman. RX prepared and ready for review and signing. [facility] 04-06-2025 Telephone encounter Note Patient notified. [facility] 04-06-2025 Telephone encounter Note Sent to [facility] pharmacy in [place]. 1047 spoke with Guilherme @ [facility] pharmacy; she put the Nortriptyline back on the patient's profile, we can call the [place] location and have them pull it. 1050 spoke with Bari, they are able to pull the RX and fill it. [facility] 04-05-2025 History of Presen t illness [facility] [address] [place] [address] Patient: Evans Forte Jr. Sex: male : 1970 Age: 55 y.o. PCP: IDANIA RICKETTS, 04/05/2025 Evans Forte Jr. is here for [...] Date CKD (chronic kidney disease) hd on - 5-9am via left avf Diabetes mellitus [place] Diabetes mellitus type 2, controlled ([facility]) Hyperlipidemia Hypothyroid Obesity Past Surgical History: Procedure Laterality Date CARDIAC CATHETERIZATION 12/2024 last one (2 total) FISTULA CREATION Left FOOT SURGERY Right Allergies Allergen Reactions Vancomycin Hives Hemphill Seed Abdominal Pain Runny nose, watery eyes [...] Resource Strain: Medium Risk (12/05/2024) Received from [facility] Overall Financial Resource Strain (CARDIA) Difficulty of Paying Living Expenses: Somewhat hard Food Insecurity: No Food Insecurity (04/05/2025) Hunger Screening Food Insecurity - Worry: Never True Food Insecurity - Inability: Never True Transportation Needs: No Transportation Needs (12/05/2024) Received from [facility] PRAPARE - Transportation Lack of Transportation (Medical): No Lack of Transportation (Non-Medical): No Physical Activity: Insufficiently Active (12/05/2024) Received from [facility] Exercise Vital Sign Days of Exercise per Week: 3 days Minutes of Exercise per Session: 30 min Stress: Stress Concern Present (12/05/2024) Received from [facility] [employer] [facility] - Occupational Stress Questionnaire Feeling of Stress : To some extent Social Connections: Socially Integrated (12/05/2024) Received from [facility] Social Connection and Isolation Panel [NHANES] Frequency of Communication with Friends and Family: More than three times a week Frequency of Social Gatherings with Friends and Family: Three times a week Attends Catholic Services: 1 to 4 times per year Active Member of Clubs or Organizations: Yes Attends Club or Organization Meetings: 1 to 4 times per year Marital Status: Interpersonal Safety: Not At Risk (12/21/2024) Received from [facility] Humiliation, Afraid, Rape, and Kick questionnaire Fear of Current or Ex-Partner: No Emotionally Abused: No Physically Abused: No Sexually Abused: No Housing Instability: High Risk (12/05/2024) Received from [facility] Housing Stability Vital Sign Unable to [...] BLOCK EPIDURAL CAUDAL STEROID Diabetic peripheral neuropathy ([facility]) PLAN IN OFFICE QTENZA 8% PATCH APPLICATION [...] Box 04/05/25 1155 documented in this encounter [facility] 04-05-2025 Instructions Minda Paiz CNA - 04/05/2025 [...] a safety precaution, you must have a goat driver after a lumbar nerve root injection, [...] back to normal. documented in this encounter [facility] 03-26-2025 Hospital Discharg e instructions Additional Instructions [...] up, such as with an orthopedic physician, subsorter, urologist, or other medical specialty, you should [...] should first take Tylenol or ibuprofen available [id number]. Medications, if prescribed to treat pain from [...] or if you have any other concerns [facility] Work Phone: 02-13-2025 Evaluation note Diagnosis Onset Date Resolution Diabetic peripheral neuropathy acute February 13, 2025 8:20am Lumbar radiculopathy acute February 13, 2025 8:20am Other chronic pain acute February 042024 8:20am Lumbar radiculopathy acute March 07, 2025 3:40pm Other chronic pain acute March 072024 3:40pm [facility] Work Phone: [phone] 886-271505-30-2025 Hospital Discharge instructions Patient Education 02/02/2025 18:32:46 [...] relieve pain. Medicines may include: ?Prescription or huqt-jma-hwwzeei pain medicine. ?Anti-seizure medicine. ?Antidepressants. ?Pain-relieving patches that are applied to painful areas of skin. Surgery to relieve pressure on a nerve or to destroy a nerve that is causing pain. Physical therapy to help improve movement and balance. Devices to help you move around (assistive devices). Follow these instructions at home: Medicines Take lkxb-gux-anrrowe and prescription medicines only as told by [...] important. Where to find more information National Moran of Neurological Disorders: www.ninds.nih.gov Contact a health [...] provider. Document Revised: 04/28/2022 Document Reviewed: 04/28/2022 [employer] Patient Education 2023 Smarty Ring. 02/02/2025 18:32:46 Acute Pain, Adult Acute Pain, [...] Follow these instructions at home: Medicines Take wtan-wll-gozepbt and prescription medicines only as told by [...] pain is severe. ?Do not take other qspb-gqw-dfchfbl pain medicines in addition to prescription pain [...] to keep your urine pale yellow. Take lhsv-nxy-eioqect or prescription medicines. Eat foods that are [...] provider. Document Revised: 03/17/2023 Document Reviewed: 03/17/2023 Elsevier Patient Education 2023 Smarty Ring. 02/02/2025 18:32:46 Neuropathic Pain Neuropathic Pain Neuropathic [...] this treated? Treatment for neuropathic pain may climate change risk assessor time. You may need to try different treatment options or a combination of treatments. Some options include: Treating the underlying cause of the neuropathy, such as diabetes, kidney disease, or vitamin deficiencies. Stopping medicines that can cause neuropathy, such as chemotherapy. Medicine to relieve pain. Medicines may include: ?Prescription or ugiu-nro-tjnwkgg pain medicine. ?Anti-seizure medicine. ?Antidepressant medicines. ?Pain-relieving [...] Follow these instructions at home: Medicines Take nuyk-wvj-bmaaqdf and prescription medicines only as told by your health care provider. Ask your health care provider if the medicine prescribed to you: ?Requires you to avoid driving or using machinery. ?Can cause constipation. You may need to take these actions to prevent or treat constipation: ?Drink enough fluid to keep your urine pale yellow. ?Take zith-cva-keawycg or prescription medicines. ?Eat foods that are [...] the National Suicide Prevention Lifeline at or 816. This is open 24 hours a day. Text the Crisis Text Line at 794038. Summary Neuropathic pain is pain caused by [...] provider. Document Revised: 04/20/2022 Document Reviewed: 04/20/2022 [employer] Patient Education 2023 Smarty Ring. Follow Up Care 02/02/2025 18:06:53 With:IDANIA RICKETTS Address: [address] [place] [address], [place] [phone] Business (1) When:02/05/2025 18:24:24 Comments:Call for diagnosis based follow up [facility] 05-30-2025 NoteED Patient Education Note Neurology Peripheral [...] pain. Medicines may include: ? Prescription or zrix-bsi-esbelev pain medicine. ? Anti-seizure medicine. ? Antidepressants. ? Pain-relieving patches that are applied to painful areas of skin. ??? Surgery to relieve pressure on a nerve or to destroy a nerve that is causing pain. ??? Physical therapy to help improve movement and balance. ??? Devices to help you move around (assistive devices). Follow these instructions at home: Medicines ??? Take pzlz-iwm-itkioik and prescription medicines only as told by [...] system. Living wi (more content not included)... 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 * Hyperkalemia (Croatian) * Kidney Disease: Medicines to Avoid (Croatian) * Neuropathic Pain (Croatian) documented in this encounterBon [facility]2025 [place] [address] Subjective Patient ID: Evans Forte is a [...] rescheduled his thoracic imaging and has [facility] scheduled. He continues [...] of left foot Type 2 diabetes mellitus ([facility]/HCC) Charcot's joint of foot Hypertension, essential Acquired hypothyroidism Hyperlipidemia Vitamin D deficiency Libido, decreased Erectile dysfunction Hypogonadism male Diabetic neuropathic arthropathy ([facility]/HCC) Diabetic neuropathy with neurologic complication ([facility]) End stage renal disease ([facility]) Glaucoma Hypoglycemia due to type 2 diabetes mellitus ([facility]) Iron deficiency anemia 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, 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, 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 ([facility]) Microalbuminuria Mild left ventricular systolic dysfunction Morbid obesity ([facility]) Obstructive sleep apnea syndrome Osteomyelitis ([facility]/HCC) Polyneuropathy due to type 2 diabetes mellitus ([facility]/HCC) Ulcer of right foot with fat layer exposed ([facility]) Pure hypercholesterolemia 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, unspecified eye ([facility]) PVD (peripheral vascular disease) Adrenal nodule Anxiety Insomnia Osteomyelitis of left foot ([facility]) Diabetic retinopathy ([facility]/HCC) Past history of chewing tobacco use Mild nonproliferative diabetic retinopathy associated with type 2 diabetes mellitus ([facility]) Diabetic foot ulcers ([facility]) Chronic sinusitis COVID-19 Anemia Preop examination Cardiovascular stress test abnormal Current tobacco use Enlarged lymph node Lymphedema Venous stasis dermatitis Neuropathic pain Intervertebral disc disorders with radiculopathy, lumbar region Past Medical History: Diagnosis Date Adrenal nodule left adrenal adenoma Anemia Anxiety Charcot foot due to diabetes mellitus ([facility]/HCC) Right, s/p reconstructive surgery Chronic sinusitis COVID-19 08/2023 Diabetic foot ulcers ([facility]/HCC) right Diabetic polyneuropathy ([facility]) Diabetic retinopathy ([facility]) ED (erectile dysfunction) ESRD (end stage renal disease) ([facility]) 11/23/2022 GERD (gastroesophageal reflux disease) Glaucoma History of tobacco use Hyperlipidemia Hypertension Hypogonadism in male Hypothyroidism Insomnia Neuropathy Obesity Osteomyelitis of ankle or foot, left, acute ([facility]) Pancreatitis x2 Past history of chewing tobacco use Peripheral artery disease Proteinuria Sleep apnea Type 2 diabetes mellitus ([facility]) Vitamin D deficiency Past Surgical History: Procedure [...] AMPUTATION Left Left lesser (more content not included)...[facility] 12-21-[address] [...] scans to review with MD. Heavenly Bueno, [facility] Medical Oncology/Hematology [phone] SUBJECTIVE: HPI: Evans Forte 54 y.o. man, [...] pericervical, anterior cervical, late (more content not included)...[facility]04-01-2025 History of Present illness Narrative* dIania Ricketts DO - 12/05/2024 7:28 PM EDTAssociated [...] with chief complaint of ER Follow-up HPI: [facility] FOLLOW UP FROM 11/27/2024 Complains [...] one will be placed in the 12/21/2024 [place] works well to help control the pain. [...] bg. Flowsheet Row Documentation from 11/28/2024 in [facility] with Elsy Carter MA Hospital Information ED, Hospital or Usp Facility Discharge? ED Patient has been contacted within 2 days of being seen in the ED Yes Diagnosis -- [Edema right lower leg] Discharge Date 11/27/24 Discharged To: Home Setting Discharge Hospital [facility] Engagement Medications Discharge medications reviewed [...] periods of time Vancomycin Hives Haloperidol Anxiety Hemphill Oil GI intolerance Runny nose, watery eyes [...] 2 diabetes mellitus with Charcot's joint arthropathy ([facility]) - Primary During the appointment today all [...] they have any problems or questions. Evans Shen Jann control is stable overall. , Will stay on current medications. Type 2 diabetes mellitus with peripheral neuropathy ([facility]) Discussed that opioids are not [...] edema, with long-term current use of insulin ([facility]/HCC) Long-term insulin use ([facility]) Class 3 severe obesity due to excess calories with serious comorbidity and body mass index (BMI) of40.0 to 44.9 in adult Hx of amputation of lesser toe, left (HCC) ([facility]) Chronic kidney disease with end stage renal disease on dialysis due to type 2 diabetes mellitus ([facility]) Follow up for Next scheduled [...] 5,000 UNITS TABLET Daily. CONTINUOUS BLOOD GLUC PSYCHOLOGY TEACHER (DEXCOM G7 PSYCHOLOGY TEACHER) DEVICE 1 (one) time each day at [...] with the patient today. documented in this encounterSaint Luke's East [id number] Telephone encounter Note* Telephone Encounter - Gretchen Plummer - 11/27/2024 3:43 PM EDT Lyrica refill sent to [facility] [place]. [facility] [id number] Miscellaneous Notes* Telephone Encounter - Gretchen Plummer - 11/27/2024 3:43 PM EDT Lyrica refill sent to [facility]. documented in this [facility]03-20-2025 Note Attestation signed by Chong Cooley MD [...] the trial produced relief. Pain Medicine Medical [address] [address] Referral Source: self-referral, found spinal cord stimulator [...] adequate relief longer than 1 week duration, [place] with fair relief, Lyrica with inadequate relief, [...] Medical History: Diagnosis Date (more content not included)...[facility] 11-07-2024 NoteDate of Telehealth Visit: 11/07/2024 Follow up on right foot wound and LAP HPI The visit was conducted ytoz-kp-elck with the use of audio and video technology using HIPAA approved Mobile Theory System between patient and the provider for [...] in 2 months Faustino Morel MD [facility] diseasesPro[facility]02-25-2025 NotePatient was seen today in wound clinic. Documentation is provided in scenios EHR wound care documenting system. See Intellicure [...] closes. RTC 2-3 weeks GDMT for PAD: tesfaye [facility]02-24-2025 Progress note Author Kit Lundy [facility] Note Date/Time October 30, 2024 6:06am [facility] ENTER [address] [place] [address] Progress Note Signed Patient: Evans Forte MR#: [id number] : 1970 Acct:[id number] Age/Sex: 54 / M Adm Date: 5 Loc: 4N Room: [address] [place] [address] Type: ADM IN Attending Dr: Maxime Magana [...] wants to leave AMA and go to [facility] tomorrow. Documented By: Kit Lundy MD 10/30/24101 Signed By: <Electronically signed by Kit Lundy MD> 10/30/24605 [facility] Work Phone: 1(673) 702-234902-24-2025 [place] [phone] Progress Note Signed Patient: Evans Forte MR#: [id number] : 1970 Acct:[id number] Age/Sex: 54 / M Adm Date: 5 Loc: 4N Room: [address] [place] [address] Type: ADM IN Attending Dr: Maxime Magana [...] wants to leave AMA and go to [facility] tomorrow. Documented By: Kit Lundy MD 10/30/24 010 Signed By: 10/30/2406 [facility]02-23-2025 History and physical note Author Maxime Magana [facility] Note Date/Time October 29, 2024 9:14pm [facility] ENTER [address] [place] [address] Hospitalist H&P Signed Patient: Evans Forte MR#: [id number] : 1970 Acct:[id number] Age/Sex: 54 / M Adm Date: 5 Loc: Room: [address] [place] [address] Type: ADM IN Attending Dr: Maxime Magana DO Copies to: DO Maxime Dhillon DO~ HPI DATE OF EXAMINATION: 10/29/24 CHIEF COMPLAINT: right foot infection, right leg cellulitis. HISTORY OF PRESENT ILLNESS: This is a 54-year-old man who came to the emergency room with right foot infection. This is located in the heel. He went to the [facility] for a wound care center appointment and he says they opened it and they dug around really deep. He explains that he was made to go to the wound care center at the [facility] because the kidney transplant program there wants him to get everything done at the [facility]. So he has had only [...] by podiatry with Dr. Wilkes out of [place]. So there are a number of plates [...] mentioned elsewhere in the documentation. [facility] Medical History (Updated 10/29/24 @ 21:11 by [...] (AV) fistula creation History of cardiac catheter[place] [facility] [place] of orthopedic surgery right [...] % (Auto) 14.2 % (.) 10/29/24 18:14 [place] % (Auto) 6.8 % (.) 10/29/24 18:14 Eos % (Auto) 3.4 % (.) 10/29/24 18:14 Baso % (Auto) 1.1 % (.) 10/29/24 18:14 Nucleat RBC Rel Count 0.0 /100 WBC (0-0.5) 10/29/24 18:14 Neut # (Auto) 7.5 x10E3/uL (1.8-7.7) 10/29/24 18:14 Lymph # (Auto) 1.4 x10E3/uL (1.00-4.8) 10/29/24 18:14 [place] # (Auto) 0.7 x10E3/uL (0.0-0.8) 10/29/24 18:14 [...] <Electronically signed by Maxime Magana DO> 10/29/242113 [facility] Work Phone: 1(141) 261-195202-23-2025 Evaluation note* Diagnosis Onset Date Resolution Status Admit Date Benign hypertension with end-stage renal disease acute October 29, 2024 7:28pm Cellulitis acute October 29, 2024 7:28pm Cellulitis of leg, right acute October 29, 2024 7:28pm ESRD on hemodialysis acute 2024 7:28pm Right foot infection acute 2024 7:28pm Type 2 diabetes mellitus wit h diabetic chronic kidney disease acute October 29, 2 025 7:28pm [facility] Work Phone: 1(218) 578-932802-23-2025 [place] [address] Hospitalist H&P Signed Patient: Evasn Forte MR#: [id number] : 1970 Acct:[id number] Age/Sex: 54 / M Adm Date: 5 Loc: 4N Room: 3J6639-9 Type: ADM IN Attending Dr: Maxime Magana DO Copies to: DO Maxime Dhillon, ~ HPI DATE OF EXAMINATION: 10/29/24 CHIEF COMPLAINT: right foot infection, right leg cellulitis. HISTORY OF PRESENT ILLNESS: This is a 54-year-old man who came to the emergency room with right foot infection. This is locatedin the heel. He went to the [facility] for a wound care center appointment and he says they opened it and they dug around really deep. He explains that he was made to go to the wound carecenter at the [facility] because the kidney transplant program there wants him to get everything done at the [facility]. So he has had only [...] foot by podiatry with Dr. Wilkes out [facility]. So there are a number of plates [...] mentioned elsewhere in the documentation. [facility] Medical History (Updated 10/29/24 @ 21:11 by [...] (AV) fistula creation History of cardiac catheter[place] [facility] History of orthopedic surgery right [...] tender to the touch and mildly warm. Darrino not smell any malodor or seedy drainage [...] % (Auto) 14.2 % (.) 10/29/24 18:14 [place] % (Auto) 6.8 % (.) 10/29/24 18:14 Eos % (Auto) 3.4 % (.) 10/29/24 18:14 Baso % (Auto) 1.1 % (.) 10/29/24 18:14 Nucleat RBC Rel Count 0.0 /100 WBC (0-0.5) 10/29/24 18:14 Neut # (Auto) 7.5 x10E3/uL (1.8-7.7) 10/29/24 18:14 Lymph # (Auto) 1.4 x10E3/uL (1.00-4.8) 10/29/24 18:14 [place] # (Auto) 0.7 x10E3/uL (0.0-0.8) 10/29/24 18:14 [...] By: Maxime Magana, 2100 Signed By: 10/29/242113 [facility]02-11-2025 NotePatient was seen today in wound clinic. Documentation is provided in [employer] wound care documenting system. See Intellicure note [...] evidence of significant arterial occlusive disease bilaterally. [facility]02-11-2025 NoteSubjective Patient ID: Evans Forte is a 54 y.o. male who presents for pre transplant evaluation HPI A 54 year old male patient with ESRD on HD since Sep 2023, is in the process of renal transplant evaluation, has two ulcers on the right foot, one heal and one on the sole first metatarsal, he follows service worker for this, during his evaluation CT abdomen [...] Diabetic foot ulcers (CMS/HCC) right Diabetic polyneuropathy ([facility]/HCC) Diabetic retinopathy (CMS/HCC) ED (erectile dysfunction) ESRD [...] of water. 90 tablet (more content not included)...[facility]01-29-2025 Telephone encounter Note* Telephone Encounter - Gretchen Plummer - 10/04/2024 9:10 AM EST Pt's spouse is requesting a Referral, office notes, medication list to Dr. Martel for pain management fax [phone] [facility] [id number] Miscellaneous Notes* Telephone Encounter - Gretchen Plummer - 10/04/2024 9:10 AM EST Pt's spouse is requesting a Referral, office notes, medication list to Dr. Martel for pain management fax [phone] documented in this encounterSaint Luke's East HospitalPdpdroadud07-10-3870 History of Present illness Narrative* Gi Mondragon [...] the patient to go to [facility] in [place] for their DM shoes and inserts. 4. Patient will be contacted for appointment information once pre-certification has been completed if required. documented in this encounterSaint Luke's East [id number] History of Present illness Narrative* Idania Ricketts [...] periods of time Vancomycin Hives Haloperidol Anxiety Hemphill Oil GI intolerance Runny nose, watery eyes [...] 5,000 UNITS TABLET Daily. CONTINUOUS BLOOD GLUC PSYCHOLOGY TEACHER (DEXCOM G7 PSYCHOLOGY TEACHER) DEVICE 1 (one) time each day at [...] with the patient today. documented in this encounterSaint Luke's East HospitalXjalwlapbu45-11-4[address]Dr[address] Catia dunham both [facility]01-14-2025 History of Present illness Narrative* Idania [...] testing came back normal. He saw the forward air controller/air officer after this and they referred him to [...] periods of time Vancomycin Hives Haloperidol Anxiety Hemphill Oil GI intolerance Runny nose, watery eyes [...] dermatitis Lymphedema - Primary Relevant Medications HYDROcodone-acetaminophen ([place]) 5-325 MG tablet Other Relevant Orders Ambulatory [...] 5,000 UNITS TABLET Daily. CONTINUOUS BLOOD GLUC PSYCHOLOGY TEACHER (DEXCOM G7 PSYCHOLOGY TEACHER) DEVICE 1 (one) time each day at [...] with the patient today. documented in this encounterSaint Luke's East [id number] History of Present illness Narrative* Gi Mondragon [...] 5. RTC: 2-3 weeks. documented in this encounterSaint Luke's East [id number] NoteTC returned message to patient regarding work up status. Patient states has completed lymph node biopsy and bone biopsy and both came back negative. Patient recommended to follow up with infectious disease regarding lymph nodes. Patient continues to work on nicotine cessation, dental and podiatry. Patient will update TC after appointment with infectious disease. Melinda Keen, JACOBUnFirelands Regional Medical Center01-07-2025 Telephone encounter Note* Telephone Encounter - Gretchen Plummer - 09/12/2024 10:51 AM EST Pt's spouse called stating pt has cellulitis. Lower part of right leg is red, hot to the touch, andswollen. She feels he needs an antibiotic called in. [facility] in [place]. [facility] [id number] Miscellaneous Notes* Telephone Encounter - Gretchen Elian - 09/12/2024 10:51 AM EST Pt's spouse called stating pt has cellulitis. Lower part of right leg is red, hot to the touch, andswollen. She feels he needs an antibiotic called in. [facility] in [place]. documented in this encounterNOSaint John's Regional Health CenterHqgknwpvnc57-18-4737 Note Attestation signed by Sivan Keller MD [...] Jasmin Junior MD / MD Treasure Jimenes, DEONTEP / Heavenly Bueno CNP / Yokasta Hughes [...] 08/22/2024 MCH 30.9 1 (more content not included)...[facility] 09-05-2024 NoteSubjective Patient ID: Evans Forte [...] Flow cytometry studies were completed at [facility] Bio: Leukemia/lymphoma phenotyping evaluation by flow cytometry: - [...] the past 36 hour(s)). No follow-ups on file.[facility]12-30-20[facility] History of Present illness Narrative* Idania Ricketts, DO - 09/04/2024 1:30 PM EST Images from the original note were not included. Evans Forte is a 54 y.o. male presents with chief complaint of ER Follow-up HPI: [facility] ER Follow up from 08/28/2024 He did [...] Ricketts, DO Hospital Information ED, Hospital or Usp Facility Discharge? ED Patient has been contacted within 1 week of being seen in the ED Yes Diagnosis right leg edema Discharge Date 08/28/24 Discharged To: Home Setting Discharge [facility] Engagement Admission Date 08/28/24 Medications Discharge medications reviewed and reconciled from hospital? Yes Appointments Self Management Patient Teaching Wrap Up Wrap Up Additional Comments appt 09/04/2024 SUBJECTIVE: See medication list at the end of the note. Allergies Allergen Reactions Latex Rash Other Reaction(s): Unknown If on for long periods of time Vancomycin Hives Other Reaction(s): Unknown Other reaction(s): Unknown Haloperidol Anxiety Hemphill Oil GI intolerance Runny nose, watery eyes [...] 5,000 UNITS TABLET Daily. CONTINUOUS BLOOD GLUC PSYCHOLOGY TEACHER (DEXCOM G7 PSYCHOLOGY TEACHER) DEVICE 1 (one) time each day at [...] with the patient today. documented in this encounterSaint Luke's East HospitalAdvwkvymvg02-09-2557 Telephone encounter Note* Telephone Encounter - Gretchen Camachoying - 09/01/2024 8:04 AM EST Copied from [facility] #[id number]. Topic: Clinical Support >> Aug 31, 2024 12:54 PM Jennifer Bone wrote: called in stating that he was seen at [facility] [place] for [place], but they refused to treat his leg, they gave him an ibuprofen and sent him home, but the thinks his right leg may be infected. Shewas advised to go to Urgent Care or ER but she will not go back to [facility]. She wanted to let Dr Emerson know what is going on and to advise what to do. [facility] [id number] Miscellaneous Notes* Telephone Encounter - Gretchen Camachojoynathaniel - 09/01/2024 8:04 AM EST Copied from [facility] #[id number]. Topic: Clinical Support >> Aug 31, 2024 12:54 PM Jennifer Bone wrote: called in stating that he was seen at [facility] [place] for his leg, but they refused to treat his leg, they gave him an ibuprofen and sent him home, but the thinks his right leg may be infected. Shewas advised to go to Urgent Care or ER but she will not go back to [facility]. She wanted to let Dr Emerson know what is going on and to advise what to do. documented in this encounterSaint Luke's East HospitalGizxltquzg86-40-5146 NotePatient: Evans Forte Procedure Summary Date: 08/22/24 Room / Location: [facility] OPERATING ROOM 05 / [facility] Operating Room Anesthesia Start: 1554 Anesthesia [...] PACU per anesthesia protocol. No notable events documented.[facility]12-17-2024 Note Patient: Evans Forte Procedure Information Date/Time: 08/22/24 1545 Procedure: EXCISIONAL RIGHT GROIN LYMPH NODE BIOPSY (Right: Groin) - PATIENT HAS APPT IN THE HOSP AT 11, CASE WILL FOLLOW HIS OTHER APPT AND [facility], MAKE SURE TO GETN CONSENT PRIOR PER CT Location: [facility] OPERATING ROOM 05 / [facility] Operating Room Surgeons: Erick Carter MD [...] breakfast. Yes Historical Prov (more content not included)...[facility]12-17-2024 NoteSedation Preparation Pre Procedure Evaluation Pre Procedure Evaluation: H&P was reviewed and the patient was examined. No change has occurred in the patient's condition since the H&P has been completed. ASA Score ASA: 3 Mallampati Mallampati: III Informed Consent Sedation Plan and Risks Explained: [facility] 08-22-2024 NotePlease let path know to add NGS for mds and myeloid with hypercellular marrow Thanks Sivan Keller MDUnFirelands Regional Medical Center12-17-2024 NoteProcedure: CT-guided bone marrow biopsy and bone marrow aspiration Staff: Esme Resident: Marquise Contrast: None Complications: None Medications: Versed 2 mg iv. Fentanyl 100 mcg iv. Moderate sedation was monitored by the interventional radiology nursing staff. Total sedation time of 20 minutes Indication: Concern for lymphoma, staging Procedure: Using CT guidance, the Thanx system was used to perform bone marrow [...] and biopsy. Electronically signed: Jey Victoria. [facility]Day[facility] NoteSubjective Patient ID: Evans Forte [...] skull base to mid thigh FDG Order: [id number] Status: Final result Visible to patient: Yes (seen) Dx: Enlarged lymph nodes; Pre-transplant ... 0 Result Notes Details Reading Physician Reading Date Result Priority Alonso Jaffe MD [phone] 07/31/2024 Routine Narrative & Impression History: Pretransplant [...] CT abdomen pelvis wo renal recipient Order: [id number] Status: Edited Result - FINAL Visible to patient: Yes (seen) Dx: Pre-transplant evaluation for kidney ... 0 Result Notes Details Reading Physician Reading Date Result Priority Alonso Sampson MD [phone] 07/12/2024 Routine Addenda Addendum: Note that there [...] iliac arteries. No suspiciou (more content not included)...[facility] 08-08-2024 Note Attestation signed by Sivan [...] Results Component Value Date (more content not included)...[facility]12-02-2024 History of Present illness Narrative* Idania Ricketts, DO - 08/07/2024 8:04 PM ESTAssociated Problem(s): [...] Obstructive sleep apnea syndrome Peripheral vascular disease ([facility]) Insomnia Pure hypercholesterolemia ([facility]) Type 2 diabetes mellitus with foot ulcer ([facility]) 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 ([facility]) Vitamin D deficiency Type 2 diabetes mellitus with ESRD (end-stage renal disease) ([facility]) Type 2 diabetes mellitus with peripheral neuropathy ([facility]) 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, with long-term current use of insulin ([facility]) Long-term insulin use ([facility]) Class 3 severe obesity due to excess calories with serious comorbidity and body mass index (BMI) of40.0 to 44.9 in adult ([facility]) Hx of amputation of lesser toe, left ([facility]) ([facility]) Adenoma of left adrenal gland Chronic kidney disease with end stage renal disease on dialysis due to type 2 diabetes mellitus ([facility]) Erectile dysfunction Hypoglycemia due to type 2 diabetes mellitus ([facility]) Hypogonadism male Iron deficiency anemia [...] Reaction(s): Unknown Other reaction(s): Unknown Haloperidol Anxiety Hemphill Oil GI intolerance Runny nose, watery eyes [...] List Items Addressed This Visit Acquired hypothyroidism ([facility]) Anxiety Dependence on renal dialysis ([facility]) End stage renal disease ([facility]) Essential hypertension ([facility]) Obstructive sleep apnea syndrome - Primary Peripheral vascular disease ([facility]) Pure hypercholesterolemia ([facility]) 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 ([facility]) During the appointment today all [...] they have any problems or questions. Evans Ac Forte is doing very well and encouraged [...] diabetes mellitus with ESRD (end-stage renal disease) ([facility]) Type 2 diabetes mellitus with peripheral neuropathy ([facility]) 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, with long-term current use of insulin ([facility]) Long-term insulin use ([facility]) Class 3 severe obesity due to excess calories with serious comorbidity and body mass index (BMI) of40.0 to 44.9 in adult ([facility]) Hx of amputation of lesser toe, left (HCC) ([facility]) Chronic kidney disease with end stage renal disease on dialysis due to type 2 diabetes mellitus ([facility]) Other Visit Diagnoses Inguinal adenopathy Will be [...] 5,000 UNITS TABLET Daily. CONTINUOUS BLOOD GLUC PSYCHOLOGY TEACHER (DEXCOM G7 PSYCHOLOGY TEACHER) DEVICE 1 (one) time each day at the same time. CONTINUOUS BLOOD GLUC SENSOR (DEXCOM G7 SENSOR) [facility] [place] every 10 days for 90 [...] with the patient today. documented in this encounterSaint Luke's East [id number] NoteLeft message to call office back and schedule with Dr Nguyen for enlarged lymph nodes [facility] NotePatient: Evans Forte Procedure Information Date/Time: 07/27/24 0830 Procedures: Coronary angiography Right heart cath Location: [facility] SOCIAL SCIENCES PROFESSOR 3 / [facility] (Cath) Providers: Pedro Alvarez MD [...] who consented to blood products. 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 [facility]11-07-2024 NotePatient returned call to TC. Discussed with patient need for additional testing recommended from CT abdomen and pelvis performed 07/11/24. Informed patient evaluating surgeon would like patient to obtain PET CT. Patient states okay to place order at [facility]. Order placed and mailed to patient. Melinda Keen, JACOBUnFirelands Regional Medical Center11-05-2024 NoteI saw the patient in clinic. They [...] and patient financial responsibility forms they signed. [facility]11-05-2024 [id number] Evans Forte 1970 M Date Provider Department [...] Grandmother Daughter Father's Brother Alive Level of Service:64110 [place] OFFICE/OUTPATIENT ESTABLISHED HIGH MDM 40 MIN Reason for Visit and Comments: Kidney Eval [[id number]][facility]11-05-2024 Note Coordinator met with patient for re-evaluation appointment today in the Transplant clinic. Patient watched the transplant education video. Reviewed transplant process and consents with patient. Answered patient questions. Social work, finance and registrar college or university in to see patient for review. Dr. Russell in for H&P and review of transplant plan. Dr. Moreland in for surgical evaluation. Coordinator provided copy of plan to patient and reviewed it with them. Patient aware further testing needed and to keep transplant team updated. Understanding verbalized by patient. Sent patient for labs, EKG & CXR today. Time Study Technologist provided patient TE folder with education on various transplant consents, the workup process, surgery details, postop expectations, transplant statistics, and living donor information. Answered patient questions and verified understanding. Melinda Keen RNUnFirelands Regional Medical Center11-05-2024 NotePre- Transplant Evaluation Nephrology Consult Chief Complaint Patient presents with Kidney Eval PCP: DO Ross Dhillon Referring: Ada Uriostegui Preferred Pharmacy: [id number] [address] [facility] [address] [place] [id number] Organ: Kidney Subjective Visit Vitals BP 134/69 [...] Other reaction(s): Unknown Adhesive Rash Haloperidol Anxiety Hemphill Oil GI intolerance Runny nose, watery eyes Medication Documentation Review Audit Reviewed by Sita Danielson MA (Collaborative Teacher) on 07/11/24 at 0808 Medication Order Taking? Sig Documenting Provider Last Dose Status anastrozole (Arimidex) 1 mg chemo tablet [id number] Yes Take 1 tablet (1 mg total) by mouth in the morning Swallow whole with a drink of water. Adams Tate NP Taking Active aspirin 81 mg chewable tablet [id number] Yes Chew 1 tablet (81 mg) in the morning. Pedro Alvarez MD Taking Active atorvastatin (Lipitor) 20 mg tablet [id number] Yes Take 1 tablet every day by oral route. Zia Harden MD Taking Active b complex 0.4 mg tablet [id number] Yes Take 1 tablet by mouth in the morning and at bedtime. Zia Harden MD Taking Active calcitriol (Rocaltrol) 0.25 mcg capsule [id number] Yes Take 0.25 mcg by mouth in the morning. Zia Harden MD Taking Active calcium acetate (Phoslo) 667 mg capsule [id number] Yes take 2 capsules by mouth with meals three times a day then take 1... (REFER TO PRESCRIPTION NOTES). Zia Harden MD Taking Active carvedilol (Coreg) 12.5 mg tablet [id number] Yes Take 12.5 mg by mouth with breakfast and with evening meal. Zia Harden MD Taking Active cholecalciferol (D3-5) 5,000 Units tablet [id number] Yes Take 1 tablet every day by oral route. Zia Harden MD Taking Active furosemide (Lasix) 80 mg tablet [id number] Yes Take 80 mg by mouth two times daily. Zia Harden MD Taking Active insulin glargine (Lantus) 100 unit/mL injection vial [id number] Yes Inject 60 Units under the skin in the morning. Zia Harden MD Taking Active insulin lispro (HUMALOG KWIKPEN INSULIN SUBQ) [id number] Yes Inject 10 Units under the skin with breakfast, with lunch, and with evening meal. Zia Harden MD Taking Active levothyroxine (Synthroid, Levoxyl) 100 mcg tablet [id number] Yes Take 1 tablet every day by oral route. Zia Harden MD Taking Active polyethylene glycol (GoLYTELY) 236-22.74-6.74 -5.86 gram solution [id number] For day 2 of 2 day prep Ermias Goodrich NP Active polyethylene glycol (GoLYTELY) 236-22.74-6.74 -5.86 gram solution [id number] No For day 1 of 2 day prep Patient not taking: Reported on 07/11/2024 Ermias Goodrich NP Not Taking Flag for Review tadalafil (Cialis) 20 mg tablet [id number] Take 1 tablet (20 mg) by mouth if needed each day for erectile dysfunction. Adams Tate NP 04/27/23 7318 testosterone 1.62 % (20.25 mg/1.25 gram) gel in packet [id number] Yes APPLY 1 PACKET DIRECTED ONCE DAILY [...] of left foot Type 2 diabetes mellitus ([facility]CC) Charcot's joint of foot Essential hypertension Acquired hypothyroidism Hyperlipidemia Vitamin D deficiency Libido, decreased Erectile dysfunction Hypogonadism male Diabetic neuropathic arthropathy ([facility]/HCC) Diabetic neuropathy ([facility]/HCC) End stage renal disease ([facility]) Glaucoma Hypoglycemia due to type 2 diabetes mellitus ([facility]) Iron deficiency anemia 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, 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, 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 ([facility]) Microalbuminuria Mild left ventricular systolic dysfunction Morbid obesity ([facility]/HCC) Obstructive sleep apnea syndrome Osteomyelitis ([facility]/HCC) Polyneuropathy due to type 2 diabetes mellitus ([facility]/HCC) Ulcer of right foot with fat layer exposed (CMS/HCC) Pure hypercholesterolemia Disorder of adrenal gland (CMS/HCC) Type 2 diabetes mellitus with 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 edema, unspecified eye (CMS/HCC) Peripheral vascu (more content not included)...[facility]11-05-2024 NotePre-Transplant Kidney Evaluation Surgery Consultation PCP: DO Ross Dhillon Referring: Ada Uriostegui Preferred Pharmacy: [id number] [place], [place] - [address] [facility] [address] [facility] [phone] Organ: Kidney Subjective Visit Vitals BP 134/69 [...] Other reaction(s): Unknown Adhesive Rash Haloperidol Anxiety Hemphill Oil GI intolerance Runny nose, watery eyes Medication Documentation Review Audit Reviewed by Sita Danielson MA (Collaborative Teacher) on 07/11/24 at 0808 Medication Order Taking? Sig Documenting Provider Last Dose Status anastrozole (Arimidex) 1 mg chemo tablet [id number] Yes Take 1 tablet (1 mg total) by mouth in the morning Swallow whole with a drink of water. Adams Tate NP Taking Active aspirin 81 mg chewable tablet [id number] Yes Chew 1 tablet (81 mg) in the morning. Pedro Alvarez MD Taking Active atorvastatin (Lipitor) 20 mg tablet [id number] Yes Take 1 tablet every day by oral route. Zia Harden MD Taking Active b complex 0.4 mg tablet [id number] Yes Take 1 tablet by mouth in the morning and at bedtime. Zia ProviderMD Taking Active calcitriol (Rocaltrol) 0.25 mcg capsule [id number] Yes Take 0.25 mcg by mouth in the morning. Historical ProviderMD Taking Active calcium acetate (Phoslo) 667 mg capsule [id number] Yes take 2 capsules by mouth with meals three times a day then take 1... (REFER TO PRESCRIPTION NOTES). Historical ProviderMD Taking Active carvedilol (Coreg) 12.5 mg tablet [id number] Yes Take 12.5 mg by mouth with breakfast and with evening meal. Zia ProviderMD Taking Active cholecalciferol (D3-5) 5,000 Units tablet [id number] Yes Take 1 tablet every day by oral route. Historical Provider, Taking Active furosemide (Lasix) 80 mg tablet [id number] Yes Take 80 mg by mouth two times daily. Historical Provider, Taking Active insulin glargine (Lantus) 100 unit/mL injection vial [id number] Yes Inject 60 Units under the skin in the morning. Historical Provider, Taking Active insulin lispro (HUMALOG KWIKPEN INSULIN SUBQ) [id number] Yes Inject 10 Units under the skin with breakfast, with lunch, and with evening meal. Historical Provider, Taking Active levothyroxine (Synthroid, Levoxyl) 100 mcg tablet [id number] Yes Take 1 tablet every day by oral route. Historical Provider, Taking Active polyethylene glycol (GoLYTELY) 236-22.74-6.74 -5.86 gram solution [id number] For day 2 of 2 day prep Ermias Goodrich NP Active polyethylene glycol (GoLYTELY) 236-22.74-6.74 -5.86 gram solution [id number] No For day 1 of 2 day prep Patient not taking: Reported on 07/11/2024 Ermias Goodrich NP Not Taking Flag for Review tadalafil (Cialis) 20 mg tablet [id number] Take 1 tablet (20 mg) by mouth if needed each day for erectile dysfunction. 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 (CMS/HCC) Microalbuminuria Mild left ventricular systolic dysfunction Morbid obesity (CMS/HCC) Obstructive sleep apnea syndrome Osteomyelitis ([facility]/HCC) Polyneuropathy due to type 2 diabetes mellitus ([facility]/HCC) Ulcer of right foot with fat layer exposed (CMS/HCC) Pure hypercholesterolemia Disorder of adrenal gland ([facility]/HCC) Type 2 diabetes mellitus with 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 edema, unspecified eye ([facility]/HCC) Peripheral vas (more content not included)...[facility] 07-11-2024 NoteTransplant Nutrition Assessment Name: Evans [...] years, intentional with diet changes. Food Allergy: Hemphill seeds Current diet: Renal diet. No supplements . High protein and vegetables. Nutrition/Diet: Most meals eaten at home. Diabetes Management: 60 units lantus and humalog 10units TID. Checks blood sugars often (has a dexcom). A1C 6.3% Diet Recall Breakfast: Skips on dialysis days or has eggs. Lunch: Padroni or a salad. Dinner: Variety of meats, [...] changes to expect post transplant. Gerri Powell RDProtestant Hospital11-05-2024 Note Identifying Information Name: Evans Shen Jann : 1970 Assessment date: 07/11/2024 Transplant type: Kidney Transplant Evaluation - 10/12/2019 Primary language: Croatian Faith/spirituality: Worship People present at assessment: sister Caryn Carroll Do you have any buddhism, ethical or personal objections to accepting blood products, surgery and/or transplant? No Citizenship Where were you born? In the [place] in [facility] Where do you currently live or are staying? [facility] Is this greater than 3-4 hours from [facility]? No. 1 Hour Family Background and [...] primary caregiver? 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 Who will be your secondary caregiver(s)? sibling Contact #: Caryn [phone] Health status & availability: Healthy, doesn't work, [...] type of work do you/did you do? [employer]. Date of last employment: April 2022 What are your thoughts about returning to work after transplant? Some form a of work. I have a [employer] drivers license. Disability Are you on any [...] Subscriber Name Rel Member # Group # [facility] - U* EVANS FORTE Self [id number] [address] [address] [facility]* EVANS FORTE Self [id number] [address] [address] Are you aware of a coordination of benefits with your insurance and Medicare (if applicable)? no- mailing Medicare and ESRD info to patient. Are you receiving assistance through [employer] JANICE Program: No Medication Coverage [...] 03/06/2023 Peritoneal [facility] Dialysis Center Information [facility] 234 BEDS AT THE [facility]. Address: [address] [place] [address], [address] Dialysis Schedule: MWF, 5:30AM, 4H15M, a [...] HD diet, p (more content not included)... [facility]10-24-20[facility] History of Present illness Narrative* Gi [...] boot for offloading/pressure reduction. Patient does have [facility] for dressing changes. Encouraged him to [...] 5. RTC: 2-3 weeks. 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 Judgment: Judgment normal. (more content not included)...[facility]10-15-20[facility] NotePatient: Evans Forte Procedure Summary Date: 06/20/24 Room / Location: [facility] Anesthesia Start: 1056 Anesthesia Stop: 1201 Procedure: [...] PACU per anesthesia protocol. No notable events documented.[facility]10-15-[facility] Note Patient: Evans Forte Procedure Information Date/Time: 06/20/24 1200 Scheduled providers: Anya Henley MD; Vinay Avila MD Procedure: SURVEILLANCE COLONOSCOPY Location: [facility] Relevant Problems Anesthesia (+) Obstructive sleep apnea [...] products. Plan discussed with resident. Additional Equipment RequestsUnFirelands Regional Medical Center10-08-2024 Note Medication resent to patients preferred pharmacy as requested.[facility]10[facility]03[facility] History of Present illness Narrative* Gi [...] 5. RTC: 2-3 weeks. documented in this encounterSaint Luke's East [id number] Telephone encounter Note* Telephone Encounter - Gi Mondragon DPM - 05/31/2024 2:20 PM EDT Refill request was approved. Prescription was sent to his preferred pharmacy. [facility] [id number] Miscellaneous Notes* Telephone Encounter - Gi Mondragon DPM - 05/31/2024 2:20 PM EDT Refill request was approved. Prescription was sent to his preferred pharmacy. * Telephone Encounter - Sophia Martini MA - 05/30/2024 2:02 PM EDT Patient called and stated that he would like a refill of Pregabalin. Please advise, thank you. documented in this encounterSaint Luke's East [id number] Telephone encounter Note* Telephone Encounter - Sophia Martini MA - 05/30/2024 2:02 PM EDT Patient called and stated that he would like a refill of Pregabalin. Please advise, thank you. [facility] East [id number] NoteSubjective Patient ID: Evans Forte is a 54 y.o. male who presents for Follow-up (Lab results ). HPI 05.26.24 Pt here for office visit with his . Pt established with Dr Clay for hypogonadism, ED and pending Renal Transplant list. Pt is having wound care to right foot at this time. ESRD treated with Dialysis 3 x week locally in [place]. Pt labs reviewed: T Levels: 05/23/24 373 [...] Order fax to [facility]. 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 No CP or SOB. No N/V/D. No abd/flank pain. Pt continues with better level of fatigue. CKD with ESRD 2/2 DM on Dialysis: T - [place] - Sat in [place]. Plan: Follow up Trimix Trial with Meds. 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 Urination: - amount of urine made: [...] - any previous fertility (more content not included)...[facility] History of Present illness Narrative* Gi Mondrgaon DPM - 05/18/2024 10:00 AM EDT Images [...] boot for offloading/pressure reduction. Patient does have [facility] for dressing changes. Encouraged him to [...] 5. RTC: 2 weeks. documented in this encounterSaint Luke's East [id number] History of Present illness Narrative* Idania Ricketts [...] presents with chief complaint of Anxiety HPI: [facility] Insurance will no longer cover Lyrica- wondering if he can be put back on gabapentin. Pt here for anxiety [facility] [place] d/t panic attack. Was prescribed Ativan Filled Ativan last night and took one dose last night. Pt states Ativan did help. [facility] will becontacting him to scheduled appt [...] Reaction(s): Unknown Other reaction(s): Unknown Haloperidol Anxiety Hemphill Oil GI intolerance Runny nose, watery eyes [...] 5,000 UNITS TABLET Daily. CONTINUOUS BLOOD GLUC PSYCHOLOGY TEACHER (DEXCOM G7 PSYCHOLOGY TEACHER) DEVICE 1 (one) time each day at [...] with the patient today. documented in this encounterNOMS Psuhvoyvvh33-16-2022 History of Present illness Narrative* Gi Sellers Mondragon, DPM - 05/04/2024 9:30 AM EDT [...] boot for offloading/pressure reduction. Patient does have [facility] for dressing changes. Encouraged him to [...] 5. RTC: 2 weeks. documented in this encounterSaint [facility] East [id number] Telephone encounter Note* Telephone Encounter - Melinda Dailey LPN - 04/27/2024 2:01 PM EDT Pt was on mounjaro 7.5 and it was unavailable and was switched to ozepmic 2mg. Pt states he is not losing weight and would like to go back to mounjaro. Okay to send in? [facility] [id number] Miscellaneous Notes* Telephone Encounter - Melinda Dailey [...] asking for Mounjaro 7.5mg documented in this encounterSaint Luke's East [id number] Telephone encounter Note* Telephone Encounter - Anayeli Mack LPN - 04/26/2024 4:00 PM EDT LVM that insurance will no long pay for novolog and asking for alternative. Also asking for Mounjaro 7.5mg [facility] [id number] Progress note Author Gi Mondragon [facility] November 23, 2023 3:53pm Note Date/Time November 23, 2023 3:5 3pm [facility] EN[facility] [address] [place] [address] Podiatry Progress Note Signed Patient: Evans Forte MR#: [id number] : 1970 Acct:[id number] Age/Sex: 53 / M Adm Date: 4 Loc: Room: [address] [place] [address] Type: ADM IN Attending Dr: Amy Escudero DO Copies to: ~ Subjective Subjective Date of Service: Date of Service: 11/23/2023 Time of Service: 15:51 Narrative: Mr. Forte is a 53 year old male who was admitted due to symptoms of sepsis. Patient has a large ulceration on the bottom of the right great toe and heel. He has been following with a service worker and family. Patient states that the ulcerations [...] large hyperkeratosis. Patient will follow-up with his service worker and family for further wound care. Discussed [...] <Electronically signed by TIARA Mondragon> 11/23/23 1553 [facility] Work Phone: 1([phone]) 737-251303-19-2024 Consult note Author Gi Mondragon [facility] November 23, 2023 3:51pm Note Date/Time November 22, 2023 5:3 0pm [facility] ENTER [address] [place] [address] Podiatry Consult Note Signed Patient: Evans Forte MR#: [id number] : 1970 Acct:[id number] Age/Sex: 53 / M Adm Date: 4 Loc: Room: [address] [place] [address] Type: ADM IN Attending Dr: Amy Escudero [...] heel. He has been following with a service worker and family. Patient states that the ulcerations [...] noted below or in HPI [facility] Medical History (Updated 11/23/23 @ 10:16 by [...] End stage renal disease Cellulitis Hypertension Neuropathy slmi feet-tingling Diabetes mellitus, type 2 Surgical History [place] [facility] [place] of [place]opedic surgery right [...] <Electronically signed by TIARA Mondragon> 11/23/23 1551 [facility] Work Phone: 1([phone] 111-284103-19-2024 Progress note Author Amy Escudero [facility] November 24, 2023 1:40pm Note Date/Time November 23, 2023 1:0 3pm [facility] ENTER [address] [place] [address] Hospitalist Progress Note Signed Patient: Evans Forte MR#: [id number] : 1970 Acct:[id number] Age/Sex: 53 / M Adm Date: 4 Loc: 3T Room: [address] [place] [address] Type: DIS IN Attending Dr: Amy Escudero [...] Tablet PO 11/20/24 08:59 1,000 mcg DAILY RYENOLD Administration Darbepoetin Zechariah 25 mcg 11/23/23 09:30 11/23/23 11:47 Darbepoetin Zechariah In Polysorbat 25 Mcg/Ml Vial IV-PUSH 11/22/24 09:29 25 mcg Tu@0930 REYNOLD Administration Protocol Furosemide 80 mg 11/22/23 16:00 11/23/23 08:52 Furosemide 80 Mg Tablet PO 11/21/24 15:59 Not Given BID@0800,1600 [facility] Heparin Sodium (Porcine) 5,000 unit 11/21/23 09:00 11/23/23 08:53 Heparin 5,000 Unit/Ml Vial SUBCUT 11/20/24 08:59 Not Given Q12HR REYNOLD Heparin Sodium (Porcine) 2,000 unit 11/23/23 09:20 [...] Insuln.Pen SUBCUT 11/20/24 16:29 Not Given ACHS [facility] Protocol Insulin Human Regular 50 unit 11/21/23 09:00 11/23/23 08:53 Insulin Regular U-500, Human 1,500 Unit/3 Ml Insuln.Pen SUBCUT 11/20/24 08:59 Not Given BID [facility] Levothyroxine Sodium 100 mcg 11/21/23 06:30 11/23/23 05:38 Levothyroxine 100 Mcg Tablet PO 11/20/24 06:29 100 mcg DAILY.0630 [facility] Administration Melatonin 5 mg 11/20/23 21:03 Melatonin 5 Mg Tablet PO 11/19/24 21:02 QHS PRN Insomnia Morphine Sulfate 2 mg 11/20/23 21:03 11/21/23 19:41 Morphine Sulfate 2 Mg/Ml Vial IV-PUSH 2 mg Q4H PRN Administration Pain Scale 8 - 10 Testosterone 1 % (50 1 packet 11/21/23 09:00 11/23/23 08:53 Mg/5 Gram) Gel In TRANSDERML 11/20/24 08:59 Not Given Packet DAILY [facility] Tirzepatide [ 5 mg 11/30/23 09:00 Mounandrewro] 5 Mg/0.5 SUBCUT 11/29/24 08:59 Ml Pen Injector Tu@0900 [facility] Ondansetron HCl 4 mg 11/20/23 21:03 Ondansetron 4 Mg/2 Ml Vial IV-PUSH 11/19/24 21:02 Q8H PRN Nausea And Vomiting Pregabalin 50 mg 11/23/23 09:00 Pregabalin 50 Mg Capsule PO 05/21/24 08:59 DAILY [facility] Sodium Chloride 0 ml 11/20/23 18:44 11/23/23 [...] signed by Amy Escudero DO> 11/24/23 1340 [facility] Work Phone: 1([phone] 982-561203-19-2024 Progress note Author Ada Uriostegui [facility] November 23, 2023 12:09pm Note Date/Time November 23, 2023 10: 34am [facility] EN[facility] [address] [place] [address] Nephrology Progress Note Signed Patient: Evans Forte MR#: [id number] : 1970 Acct:[id number] Age/Sex: 53 / M Adm Date: 4 Loc: Room: [address] [place] [address] Type: ADM IN Attending Dr: Amy Escudero DO Copies to: ~ Date of Service: 11/23/2023 Subjective Subjective Narrative: This is a 53-year-old male patient with a past medical history of hypertension, hyperlipidemia, end-stage renal disease on TTS hemodialysis schedule at [facility], insulin-dependent diabetes mellitus, obstructive sleep apnea, [...] Skin: No rashes , warm to touch 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 TELLER: Awake,Alert, following simple command Musculoskeletal: No joint [...] 1 Mg Tablet) 1 mg PO QAM [facility] Stop: 11/20/24 08:59 Last Admin: 11/22/23 08:14 Dose: 1 mg Atorvastatin Calcium (Atorvastatin 20 Mg Tablet) 20 mg PO QAM [facility] Stop: 11/20/24 08:59 Last Admin: 11/22/23 08:13 Dose: 20 mg Calcitriol (Calcitriol 0.25 Mcg Capsule) 0.25 mcg PO TuThSa@0900 [facility] Stop: 11/22/24 08:59 Calcium Acetate (Calcium Acetate 667 Mg Capsule) 2,668 mg PO AC [facility] Stop: 11/20/24 07:29 Last Admin: 11/23/23 08:52 Dose: Not Given Carvedilol (Carvedilol 6.25 Mg Tablet) 6.25 mg PO BID [facility] Stop: 11/21/24 13:29 Last Admin: 11/23/23 08:53 Dose: Not Given Cyanocobalamin (Cyanocobalamin 1,000 Mcg Tablet) 1,000 mcg PO DAILY [facility] Stop: 11/20/24 08:59 Last Admin: 11/22/23 08:13 Dose: 1,000 mcg Darbepoetin Zechariah (Darbepoetin Zechariah In Polysorbat 25 Mcg/Ml Vial) 25 mcg IV-PUSHTu@0930 [facility]; Protocol Stop: 11/22/24 09:29 Furosemide (Furosemide 80 Mg Tablet) 80 mg PO BID@0800,1600 [facility] Stop: 11/21/24 15:59 Last Admin: 11/23/23 08:52 Dose: Not Given Heparin Sodium (Porcine) (Heparin 5,000 Unit/Ml Vial) 5,000 unit SUBCUT Q12HR [facility] Stop: 11/20/24 08:59 Last Admin: 11/23/23 08:53 [...] 300 mls @ 300 mls/hr IV Q12H [facility] Last Admin: 11/22/23 21:02 Dose: 300 mls/hr Ceftriaxone Sodium (Rocephin) 2 gm in 50 mls @ 100 mls/hr IV Q24H [facility] Last Admin: 11/22/23 19:25 Dose: 100 mls/hr Sodium Chloride (0.9% Sodium Chloride 1,000 Ml) 1,000 mls @ 0 mls/hr MISCELLANE.Q0M PRN PRN Reason: Dialysis Stop: 11/22/24 09:19 Last Infusion: 11/23/23 09:43 Dose: Infused Insulin Aspart (Insulin Aspart 300 Units/3 Ml Insuln.Pen) 0 units SUBCUT ACHS [facility]; Protocol Stop: 11/20/24 16:29 Last Admin: 11/23/23 08:52 Dose: Not Given Insulin Human Regular (Insulin Regular U-500, Human 1,500 Unit/3 Ml Insuln.Pen) 50 unit SUBCUT BID [facility] Stop: 11/20/24 08:59 Last Admin: 11/23/23 08:53 Dose: Not Given Levothyroxine Sodium (Levothyroxine 100 Mcg Tablet) 100 mcg PO DAILY.0630 [facility] Stop: 11/20/24 06:29 Last Admin: 11/23/23 05:38 [...] Gel In Packet 1 packet TRANSDERML DAILY [facility] Stop: 11/20/24 08:59 Last Admin: 11/23/23 08:53 Dose: Not Given Tirzepatide [ Mounjaro] 5 Mg/0.5 Ml Pen Injector 5 mg SUBCUT Tu@0900 [facility] Stop: 11/29/24 08:59 Ondansetron HCl (Ondansetron 4 Mg/2 Ml Vial) 4 mg IV-PUSH Q8H PRN PRN Reason: Nausea And Vomiting Stop: 11/19/24 21:02 Pregabalin (Pregabalin 50 Mg Capsule) 50 mg PO DAILY [facility] Stop: 05/21/24 08:59 Sodium Chloride (Sodium Chloride [...] diabetic nephropathy. Patient has been going to [facility] for hemodialysis. Last hemodialysis session was [...] <Electronically signed by Ada Uriostegui MD> 11/23/23 8083 [facility] Work Phone: 1(207) 909-319003-19-2024 Progress note Author Chintan Hernández [facility] November 23, 2023 10:54am Note Date/Time November 23, 2023 10: 54am [facility] EN[facility] [address] [place] [address] Infect. Disease Progress Note Signed Patient: Evans Forte MR#: [id number] : 1970 Acct:[id number] Age/Sex: 53 / M Adm Date: 4 Loc: Room: [address] [place] [address] Type: ADM IN Attending Dr: Amy Escudero [...] 1 Mg Tablet) 1 mg PO QAM [facility] Stop: 11/20/24 08:59 Last Admin: 11/22/23 08:14 Dose: 1 mg Atorvastatin Calcium (Atorvastatin 20 Mg Tablet) 20 mg PO QAM [facility] Stop: 11/20/24 08:59 Last Admin: 11/22/23 08:13 Dose: 20 mg Calcitriol (Calcitriol 0.25 Mcg Capsule) 0.25 mcg PO TuThSa@0900 [facility] Stop: 11/22/24 08:59 Calcium Acetate (Calcium Acetate 667 Mg Capsule) 2,668 mg PO AC [facility] Stop: 11/20/24 07:29 Last Admin: 11/23/23 08:52 Dose: Not Given Carvedilol (Carvedilol 6.25 Mg Tablet) 6.25 mg PO BID [facility] Stop: 11/21/24 13:29 Last Admin: 11/23/23 08:53 Dose: Not Given Cyanocobalamin (Cyanocobalamin 1,000 Mcg Tablet) 1,000 mcg PO DAILY [facility] Stop: 11/20/24 08:59 Last Admin: 11/22/23 08:13 Dose: 1,000 mcg Darbepoetin Zechariah (Darbepoetin Zechariah In Polysorbat 25 Mcg/Ml Vial) 25 mcg IV-PUSHTu@0930 [facility]; Protocol Stop: 11/22/24 09:29 Furosemide (Furosemide 80 Mg Tablet) 80 mg PO BID@0800,1600 [facility] Stop: 11/21/24 15:59 Last Admin: 11/23/23 08:52 Dose: Not Given Heparin Sodium (Porcine) (Heparin 5,000 Unit/Ml Vial) 5,000 unit SUBCUT Q12HR [facility] Stop: 11/20/24 08:59 Last Admin: 11/23/23 08:53 [...] 300 mls @ 300 mls/hr IV Q12H [facility] Last Admin: 11/22/23 21:02 Dose: 300 mls/hr Ceftriaxone Sodium (Rocephin) 2 gm in 50 mls @ 100 mls/hr IV Q24H [facility] Last Admin: 11/22/23 19:25 Dose: 100 mls/hr Sodium Chloride (0.9% Sodium Chloride 1,000 Ml) 1,000 mls @ 0 mls/hr MISCELLANE.Q0M PRN PRN Reason: Dialysis Stop: 11/22/24 09:19 Last Infusion: 11/23/23 09:43 Dose: Infused Insulin Aspart (Insulin Aspart 300 Units/3 Ml Insuln.Pen) 0 units SUBCUT ACHS [facility]; Protocol Stop: 11/20/24 16:29 Last Admin: 11/23/23 08:52 Dose: Not Given Insulin Human Regular (Insulin Regular U-500, Human 1,500 Unit/3 Ml Insuln.Pen) 50 unit SUBCUT BID [facility] Stop: 11/20/24 08:59 Last Admin: 11/23/23 08:53 Dose: Not Given Levothyroxine Sodium (Levothyroxine 100 Mcg Tablet) 100 mcg PO DAILY.0630 [facility] Stop: 11/20/24 06:29 Last Admin: 11/23/23 05:38 [...] Gel In Packet 1 packet TRANSDERML DAILY [facility] Stop: 11/20/24 08:59 Last Admin: 11/23/23 08:53 Dose: Not Given Tirzepatide [ Mounjaro] 5 Mg/0.5 Ml Pen Injector 5 mg SUBCUT Tu@0900 [facility] Stop: 11/29/24 08:59 Ondansetron HCl (Ondansetron 4 Mg/2 Ml Vial) 4 mg IV-PUSH Q8H PRN PRN Reason: Nausea And Vomiting Stop: 11/19/24 21:02 Pregabalin (Pregabalin 50 Mg Capsule) 50 mg PO DAILY [facility] Stop: 05/21/24 08:59 Sodium Chloride (Sodium Chloride [...] <Electronically signed by MD Chintan Hernández> 11/23/231053 [facility] Work Phone: 1([phone] 782-117103-18-2024 Progress note Author Ada Uriostegui [facility] November 22, 2023 12:53pm Note Date/Time November 22, 2023 12: 53pm [facility] EN[facility] [address] [place] [address] Nephrology Progress Note Signed Patient: Evans Forte MR#: [id number] : 1970 Acct:[id number] Age/Sex: 53 / M Adm Date: 4 Loc: Room: [address] [place] [address] Type: ADM IN Attending Dr: Amy Escudero DO Copies to: ~ Date of Service: 11/22/2023 Subjective Subjective Narrative: This is a 53-year-old male patient with a past medical history of hypertension, hyperlipidemia, end-stage renal disease on TTS hemodialysis schedule at [facility], insulin-dependent diabetes mellitus, obstructive sleep apnea, [...] Skin: No rashes , warm to touch SENIOR TELLER: Awake,Alert, following simple command Musculoskeletal: No joint [...] 1 Mg Tablet) 1 mg PO QAM [facility] Stop: 11/20/24 08:59 Last Admin: 11/22/23 08:14 Dose: 1 mg Atorvastatin Calcium (Atorvastatin 20 Mg Tablet) 20 mg PO QAM [facility] Stop: 11/20/24 08:59 Last Admin: 11/22/23 08:13 Dose: 20 mg Calcitriol (Calcitriol 0.25 Mcg Capsule) 0.25 mcg PO TuThSa@0900 [facility] Stop: 11/22/24 08:59 Calcium Acetate (Calcium Acetate 667 Mg Capsule) 2,668 mg PO AC [facility] Stop: 11/20/24 07:29 Last Admin: 11/22/23 11:21 Dose: 2,668 mg Carvedilol (Carvedilol 6.25 Mg Tablet) 6.25 mg PO BID [facility] Stop: 11/21/24 12:19 Cyanocobalamin (Cyanocobalamin 1,000 Mcg Tablet) 1,000 mcg PO DAILY [facility] Stop: 11/20/24 08:59 Last Admin: 11/22/23 08:13 Dose: 1,000 mcg Heparin Sodium (Porcine) (Heparin 5,000 Unit/Ml Vial) 5,000 unit SUBCUT Q12HR [facility] Stop: 11/20/24 08:59 Last Admin: 11/22/23 08:14 Dose: 5,000 unit Linezolid (Zyvox) 600 mg in 300 mls @ 300 mls/hr IV Q12H [facility] Last Admin: 11/22/23 08:58 Dose: 300 mls/hr Ceftriaxone Sodium (Rocephin) 2 gm in 50 mls @ 100 mls/hr IV Q24H [facility] Last Admin: 11/21/23 19:41 Dose: 100 mls/hr Insulin Aspart (Insulin Aspart 300 Units/3 Ml Insuln.Pen) 0 units SUBCUT ACHS [facility]; Protocol Stop: 11/20/24 16:29 Last Admin: 11/22/23 11:22 Dose: 2 units Insulin Human Regular (Insulin Regular U-500, Human 1,500 Unit/3 Ml Insuln.Pen) 50 unit SUBCUT BID [facility] Stop: 11/20/24 08:59 Last Admin: 11/22/23 08:16 Dose: 50 unit Levothyroxine Sodium (Levothyroxine 100 Mcg Tablet) 100 mcg PO DAILY.0630 [facility] Stop: 11/20/24 06:29 Last Admin: 11/22/23 05:29 [...] Gel In Packet 1 packet TRANSDERML DAILY [facility] Stop: 11/20/24 08:59 Last Admin: 11/22/23 11:21 Dose: Not Given Tirzepatide [ Mounjaro] 5 Mg/0.5 Ml Pen Injector 5 mg SUBCUT Tu@0900 [facility] Stop: 11/29/24 08:59 Ondansetron HCl (Ondansetron 4 Mg/2 Ml Vial) 4 mg IV-PUSH Q8H PRN PRN Reason: Nausea And Vomiting Stop: 11/19/24 21:02 Pregabalin (Pregabalin 150 Mg Capsule) 150 mg PO BID [facility] Stop: 05/19/24 08:59 Last Admin: 11/22/23 08:14 [...] Taqueria Reese M.D.11/21/2023 4:39 PM Dictation Location: [address] 11/22/23 07:00 IMPRESSION: NO HEMODYNAMICALLY SIGNIFICANT PERIPHERAL VASCULAR OCCLUSIVE DISEASE AT REST IN EITHER LOWER EXTREMITY. Impression dictated by: Ramirez Jean M.D.11/22/2023 10:09 AM Dictation Location: [place] [address] Any impression(s) listed above is documentation that [...] diabetic nephropathy. Patient has been going to [facility] on TTS for hemodialysis. Last hemodialysis [...] signed by Ada Uriostegui MD> 11/22/23 1258 [facility] Work Phone: [phone] Progress note Author Amy Escudero [facility] November 22, 2023 12:45pm Note Date/Time November 22, 2023 10: 37am [facility] EN[facility] [address] [place] [address] Hospitalist Progress Note Signed Patient: Evans Forte MR#: [id number] : 1970 Acct:[id number] Age/Sex: 53 / M Adm Date: 4 Loc: 3T Room: [address] [place] [address] Type: ADM IN Attending Dr: Amy Escudero [...] Insuln.Pen SUBCUT 11/20/24 16:29 Not Given ACHS [facility] Protocol Insulin Human Regular 50 unit 11/21/23 [...] RE[facility]OLD Tirzepatide [ 5 mg 11/30/23 09:00 Mounandrewro] 5 Mg/0.5 SUBCUT 11/29/24 08:59 Ml Pen Injector Tu@0900 [facility] Ondansetron HCl 4 mg 11/20/23 21:03 Ondansetron [...] signed by Amy Escudero DO> 11/22/23 1245 [facility] Work Phone: [phone] Consult note Author Chintan Hernández [facility] November 22, 2023 11:26am Note Date/Time November 22, 2023 11: 26am [facility] EN[facility] [address] [place] [address] Infect. Disease Consult Note Signed Patient: Evans Forte MR#: [id number] : 1970 Acct:[id number] Age/Sex: 53 / M Adm Date: 4 Loc: 3T Room: [address] [place] [address] Type: ADM IN Attending Dr: Amy Escudero [...] noted below or in HPI [facility] Medical History (Updated 11/22/23 @ 11:24 by [...] 2 Surgical History History of cardiac [place] [facility] [place] of orthopedic surgery right [...] 1 Mg Tablet) 1 mg PO QAM [facility] Stop: 11/20/24 08:59 Last Admin: 11/22/23 08:14 Dose: 1 mg Atorvastatin Calcium (Atorvastatin 20 Mg Tablet) 20 mg PO QAM [facility] Stop: 11/20/24 08:59 Last Admin: 11/22/23 08:13 Dose: 20 mg Calcitriol (Calcitriol 0.25 Mcg Capsule) 0.25 mcg PO TuThSa@0900 [facility] Stop: 11/22/24 08:59 Calcium Acetate (Calcium Acetate 667 Mg Capsule) 2,668 mg PO AC [facility] Stop: 11/20/24 07:29 Last Admin: 11/22/23 08:13 Dose: 2,668 mg Cyanocobalamin (Cyanocobalamin 1,000 Mcg Tablet) 1,000 mcg PO DAILY [facility] Stop: 11/20/24 08:59 Last Admin: 11/22/23 08:13 Dose: 1,000 mcg Heparin Sodium (Porcine) (Heparin 5,000 Unit/Ml Vial) 5,000 unit SUBCUT Q12HR [facility] Stop: 11/20/24 08:59 Last Admin: 11/22/23 08:14 Dose: 5,000 unit Linezolid (Zyvox) 600 mg in 300 mls @ 300 mls/hr IV Q12H [facility] Last Admin: 11/22/23 08:58 Dose: 300 mls/hr Ceftriaxone Sodium (Rocephin) 2 gm in 50 mls @ 100 mls/hr IV Q24H [facility] Last Admin: 11/21/23 19:41 Dose: 100 mls/hr Insulin Aspart (Insulin Aspart 300 Units/3 Ml Insuln.Pen) 0 units SUBCUT ACHS [facility]; Protocol Stop: 11/20/24 16:29 Last Admin: 11/22/23 08:13 Dose: Not Given Insulin Human Regular (Insulin Regular U-500, Human 1,500 Unit/3 Ml Insuln.Pen) 50 unit SUBCUT BID [facility] Stop: 11/20/24 08:59 Last Admin: 11/22/23 08:16 Dose: 50 unit Levothyroxine Sodium (Levothyroxine 100 Mcg Tablet) 100 mcg PO DAILY.0630 [facility] Stop: 11/20/24 06:29 Last Admin: 11/22/23 05:29 [...] Gel In Packet 1 packet TRANSDERML DAILY [facility] Stop: 11/20/24 08:59 Last Admin: 11/21/23 10:14 Dose: Not Given Tirzepatide [ Mounjaro] 5 Mg/0.5 Ml Pen Injector 5 mg SUBCUT Tu@0900 [facility] Stop: 11/29/24 08:59 Ondansetron HCl (Ondansetron 4 Mg/2 Ml Vial) 4 mg IV-PUSH Q8H PRN PRN Reason: Nausea And Vomiting Stop: 11/19/24 21:02 Pregabalin (Pregabalin 150 Mg Capsule) 150 mg PO BID [facility] Stop: 05/19/24 08:59 Last Admin: 11/22/23 08:14 [...] @ 300 mls/hr IV Q12H [facility] Rx# :[id number] Output: Urine 100 / 100 Other: # [...] signed by MD Chintan Hernández> 11/22/23 1126 [facility] Work Phone: [phone]) 124-208403-17-2024 Progress note Author Arnol Calloway [facility] November 21, 2023 5:52pm Note Date/Time November 21, 2023 11: 07am [facility] EN[facility] [address] [place] [address] Hospitalist Progress Note Signed Patient: Evans Forte MR#: [id number] : 1970 Acct:[id number] Age/Sex: 53 / M Adm Date: 4 Loc: Room: [address] [place] [address] Type: ADM IN Attending Dr: Arnol Calloway [...] as neuropathy. Follows with Dr. Fonseca/podiatry in [place] but indicates has not had vascular studies [...] REYNOLD Tirzepatide [ 5 mg 11/30/23 09:00 Mounandrewro] 5 Mg/0.5 SUBCUT 11/29/24 08:59 Ml Pen Injector Tu@0900 [facility] Ondansetron HCl 4 mg 11/20/23 21:03 Ondansetron [...] Check prealbumin. Dietitian consult ESRD on hemodialysis / Anemia of CKD [...] <Electronically signed by Arnol Calloway MD> 11/21/23 5263 [facility] Work Phone: [phone] Consult note Author Yocasta Villalba [facility] November 21, 2023 10:16am Note Date/Time November 21, 2023 10: 16am [facility] EN[facility] [address] [place] [address] Nephrology Consult Note Signed Patient: Evans Forte MR#: [id number] : 1970 Acct:[id number] Age/Sex: 53 / M Adm Date: 4 Loc: Room: [address] [place] [address] Type: ADM IN Attending Dr: Arnol Calloway MD Copies to: DO Yocasta Dhillon MD Frederick E Doamekpor, MD~ Providers Consult Date: 11/21/23 Requesting Provider: Arnol Calloway MD Primary Care Provider: Idania Ricketts DO [facility] Reason for Consult: End-stage renal disease care History of Present Illness: This is a 53-year-old male patient with a past medical history of hypertension, hyperlipidemia, end-stage renal disease on TTS hemodialysis schedule at [facility], insulin-dependent diabetes mellitus, obstructive sleep apnea, [...] system review is negative today [facility] Medical History (Updated 11/21/23 @ 10:12 by [...] 2 Surgical History [place] of [place] [facility] [place] of orthopedic surgery right [...] (Anastrozole 1 Mg Tablet) [facility] Stop: 11/20/24 08:59 Last Admin: 11/21/23 08:00 Dose: 1 mg Atorvastatin Calcium (Atorvastatin 20 Mg Tablet) 20 [facility] Stop: 11/20/24 08:59 Last Admin: 11/21/23 08:00 Dose: 20 mg Calcitriol (Calcitriol 0.25 Mcg Capsule) 0.25 mcg PO TuThSa@0900 [facility] Stop: 11/22/24 08:59 Calcium Acetate (Calcium Acetate 667 Mg Capsule) 2,668 mg PO AC [facility] Stop: 11/20/24 07:29 Last Admin: 11/21/23 07:54 Dose: 2,668 mg Cyanocobalamin (Cyanocobalamin 1,000 Mcg Tablet) 1,000 mcg PO DAILY [facility] Stop: 11/20/24 08:59 Last Admin: 11/21/23 08:00 Dose: 1,000 mcg Heparin Sodium (Porcine) (Heparin 5,000 Unit/Ml Vial) 5,000 unit SUBCUT Q12HR [facility] Stop: 11/20/24 08:59 Last Admin: 11/21/23 08:00 Dose: 5,000 unit Linezolid (Zyvox) 600 mg in 300 mls @ 300 mls/hr IV Q12H [facility] Last Admin: 11/21/23 09:06 Dose: 300 mls/hr Ceftriaxone Sodium (Rocephin) 2 gm in 50 mls @ 100 mls/hr IV Q24H [facility] Insulin Human Regular (Insulin Regular U-500, Human 1,500 Unit/3 Ml Insuln.Pen) 50 unit SUBCUT BID [facility] Stop: 11/20/24 08:59 Last Admin: 11/21/23 08:00 Dose: 50 unit Levothyroxine Sodium (Levothyroxine 100 Mcg Tablet) 100 mcg PO DAILY.0630 [facility] Stop: 11/20/24 06:29 Last Admin: 11/21/23 05:39 [...] Gel In Packet 1 packet TRANSDERML DAILY [facility] Stop: 11/20/24 08:59 Tirzepatide [ Mounjaro] 5 Mg/0.5 Ml Pen Injector 5 mg SUBCUT Tu@0900 [facility] Stop: 11/29/24 08:59 Ondansetron HCl (Ondansetron 4 [...] Taqueria Reese M.D.11/21/2023 8:08 AM Dictation Location: [place] [id number] Any impression(s) listed above is documentation that [...] diabetic nephropathy. Patient has been going to [facility] on TTS for hemodialysis. Last hemodialysis [...] signed by Yocasta Villalba MD> 11/21/23 1016 [facility] Work Phone: [phone] History and physical note Author Buddy Murguia [facility] November 20, 2023 10:57pm Note Date/Time November 20, 2023 10: 38pm [facility] EN[facility] [address] [place] [address] Hospitalist H&P Signed Patient: Evans Forte MR#: [id number] : 1970 Acct:[id number] Age/Sex: 53 / M Adm Date: 4 Loc: Room: [address] [place] [address] Type: ADM IN Attending Dr: Buddy Murguia [...] noted below or in HPI [facility] Medical History (Updated 11/20/23 @ 22:54 by [...] 2 Surgical History History of cardiac catheter[place] [facility] of [place] surgery right [...] 19:00 Lymph % (Auto) N/A 11/20/23 19:00 [place] % (Auto) N/A 11/20/23 19:00 Eos % (Auto) N/A 11/20/23 19:00 Baso % (Auto) N/A 11/20/23 19:00 Nucleat RBC Rel Count N/A 11/20/23 19:00 Neut # (Auto) N/A 11/20/23 19:00 Lymph # (Auto) N/A 11/20/23 19:00 [place] # (Auto) N/A 11/20/23 19:00 Eos # [...] days): 3 Documented By: Buddy Murguia DO 11/20/235 Signed By: <Electronically signed by Buddy Murguia DO> 11/20/23 [address] [facility] Work Phone: 1([phone] 403-363902-07-2024 History of Present illness Narrative* Flakito High, [...] Units tablet Daily RT Continuous Blood Gluc Protective Services Social Worker (Dexcom G7 Protective Services Social Worker) device Every 24 hours Continuous Blood Gluc [...] Reaction(s): Unknown Other reaction(s): Unknown Haloperidol Anxiety Hemphill Oil GI intolerance Runny nose, watery eyes Wound Dressing Adhesive Rash PAST MEDICAL HISTORY: SOCIAL HISTORY SURGICAL HISTORY: Past Medical History: Diagnosis Date Allergies CKD (chronic kidney disease) Diabetes ([facility]) Family history of cancer Glaucoma ([facility]) History of being hospitalized 02/05/2017 [facility] - Discharged 02/07/17 Hyperlipidemia ([facility]) Hypertension ([facility]) Hypothyroidism (acquired) ([facility]) GUSTAVO (obstructive sleep apnea) Osteomyelitis of left foot ([facility]) PAD (peripheral artery disease) ([facility]) Pancreatitis x3 Subcutaneous mass of back 03/02/2023 [...] visit: Peritoneal dialysis catheter dysfunction, subsequent encounter ([facility]) Plan is for removal of peritoneal dialysis catheter. I discussed with him the procedure and the risks and potential complications including but not limited to bleeding, infection, pain, possible needfor abdominal exploration if can not remove the catheter easily, possible foreign body retained. Heunderstands and he would like to proceed. No follow-ups on file. documented in this encounterSaint [facility] [id number] Evaluation note* Encounter Date Diagnosis Assessment Notes [...] He understands and agrees with that plan Pin or Peg Other 01-11-2024 History and physical note Author Ramirez Jean [facility] September 16, 2023 1:55pm Note Date/Time September 16, 2023 1 :56pm [facility] [address] [place] [address] Vascular Surgery H&P Signed Patient: Evans Forte MR#: [id number] : 1970 Acct:[id number] Age/Sex: 53 / M Adm Date: 4 Loc: [place] Room: Type: [facility] Attending Dr: Ramirez Jean MD Copies to: [...] noted below or in HPI [facility] Medical History (Updated 09/16/23 @ 11:02 by [...] mg capsule (Lyrica) 50 mg PO DAILY 02/04/23 [History Confirmed 09/16/23] sodium bicarbonate 650 mg [...] % (Auto) 74.1 Lymph % (Auto) 14.7 [place] % (Auto) 7.3 Eos % (Auto) 3.5 Baso % (Auto) 0.4 Nucleat RBC Rel Count 0.0 Neut # (Auto) 8.4 H Lymph # (Auto) 1.7 [place] # (Auto) 0.8 Eos # (Auto) 0.4 [...] MPV Neut % (Auto) Lymph % (Auto) [place] % (Auto) Eos % (Auto) Baso % (Auto) Nucleat RBC Rel Count Neut # (Auto) Lymph # (Auto) [place] # (Auto) Eos # (Auto) Baso # [...] <Electronically signed by MD Ramirez Jean> 09/16/23 [address] [facility] Work Phone: 1(628) 742-443110-16-2023 Evaluation note* Encounter Date Diagnosis Assessment Notes Treatment Notes Treatment Clinical Notes Jun, Type 2 diabetes mellitus with diabetic chronic kidney disease (ICD-10 - E11.22) Pin or Peg Other 10-11-2023 Evaluation note* Encounter Date Diagnosis [...] your pharmacy, please contact our office at [phone]. Jun, Hypoglycemia (ICD-10 - E16.2) Low blood glucose and diabetes material was published Jun, CKD (chronic kidney disease) stage 5, GFR less than 15 ml/min (ICD-10 - N18.5) Living with chronic kidney disease material was published keep f/u with nephrology Jun, Other Ha was givena dexBrevado G7 sample at this appoitnment. He stated that he was previously using [...] on his phone by George Vasques RN, [facility]. [employer] Other 03-31-2023 Evaluation note* Encounter Date Diagnosis [...] advised him to take low potassium diet. Pin or Peg Other 03-04-2023 Progress note Author Yocasta Villalba [facility] November 07, 2022 2:43pm Note Date/Time November 07, 2022 2:43 pm [facility] [address] [place] [address] Nephrology Progress Note Signed Patient: Evans Forte MR#: [id number] : 1970 Acct:[id number] Age/Sex: 52 / M Adm Date: 3 Loc: Room: [address] [place] [address] Type: ADM IN Attending Dr: Chintan Brewster DO Copies to: ~ Date of Service: 11/07/2022 Subjective Subjective Narrative: This is a 52-year-old male patient with a past sickle history of chronic kidney disease stage V from diabetic nephropathy, hypertension, morbid obesity, anemia of renal disease, neuropathy. 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 Waters for hyperkalemia with potassium 5.9 [...] 50 Mg Tablet) 100 mg PO TID [facility] Stop: 11/07/23 13:59 Last Admin: 11/07/22 13:44 Dose: 100 mg Ferric Sodium Gluconate Complex 250 mg/ Sodium Chloride 270 mls @ 135 mls/hr IVQAM [facility] Stop: 11/09/22 09:01 Last Admin: 11/07/22 09:49 Dose: 135 mls/hr Insulin Human Regular (Insulin Regular U-500, Human 1,500 Unit/3 Ml Insuln.Pen) 45 unit SUBCUT DAILY@1700 [facility] Stop: 11/05/23 16:59 Last Admin: 11/06/22 17:13 Dose: 45 unit Insulin Human Regular (Insulin Regular U-500, Human 1,500 Unit/3 Ml Insuln.Pen) 70 unit SUBCUT DAILY@0600 [facility] Stop: 11/05/23 05:59 Last Admin: 11/07/22 05:54 Dose: 70 unit Labetalol HCl (Labetalol 100 Mg/20 Ml Vial) 10 mg IV-PUSH Q10M PRN PRN Reason: Hypertension Stop: 11/04/23 16:31 Last Admin: 11/04/22 21:41 Dose: 10 mg Levothyroxine Sodium (Levothyroxine 100 Mcg Tablet) 100 mcg PO DAILY@0630 [facility] Stop: 11/05/23 06:29 Last Admin: 11/07/22 05:55 Dose: 100 mcg Lorazepam (Lorazepam 2 Mg/Ml Vial) 0.5 mg IV-PUSH Q4H PRN PRN Reason: Agitation Stop: 05/05/23 16:50 Last Admin: 11/06/22 17:11 Dose: 0.5 mg Nifedipine (Nifedipine Er.24hr 90 Mg Tab.Er.24) 90 mg PO DAILY [facility] Stop: 11/05/23 08:59 Last Admin: 11/07/22 08:39 Dose: 90 mg Pregabalin (Pregabalin 50 Mg Capsule) 50 mg PO DAILY [facility] Stop: 05/04/23 08:59 Last Admin: 11/07/22 08:38 Dose: 50 mg Sodium Bicarbonate (Sodium Bicarbonate 650 Mg Tablet) 1,300 mg PO BID [facility] Stop: 11/05/23 10:29 Last Admin: 11/07/22 08:38 [...] a.m. Documented By: Yocasta Villalba MD 11/07/22 1433 Signed By: <Electronically signed by Yocasta Villalba MD> 11/07/22 [address] [facility] Work Phone: 1(884) 157-333503-04-2023 Progress note Author Masoud Maria [facility] November 07, 2022 8:40am Note Date/Time November 07, 2022 8:40 am [facility] [address] [place] [address] General Surgery Progress Note Signed Patient: Evans Forte MR#: [id number] : 1970 Acct:[id number] Age/Sex: 52 / M Adm Date: 3 Loc: Room: [address] [place] [address] Type: ADM IN Attending Dr: Chintan Brewster [...] 500 Mg Tablet) 500 mg PO DAILY [facility] Stop: 11/05/23 08:59 Last Admin: 11/06/22 10:32 [...] 324 Mg Tablet.Dr) 324 mg PO DAILY [facility] Stop: 11/05/23 08:59 Last Admin: 11/06/22 10:32 Dose: Not Given Folic Acid (Cyanocobalamin/Fa/Pyridoxine 1 Tab Tablet) 1 tab PO DAILY [facility] Stop: 11/05/23 08:59 Last Admin: 11/06/22 10:32 Dose: Not Given Heparin Sodium (Porcine) (Heparin 5,000 Unit/Ml Vial) 5,000 unit SUBCUT Q8HR [facility] Stop: 11/05/23 13:59 Last Admin: 11/07/22 05:53 Dose: 5,000 unit Hydralazine HCl (Hydralazine 20 Mg/Ml Vial) 10 mg IV-PUSH Q4H PRN PRN Reason: if SBP > 185 Stop: 11/04/23 23:30 Last Admin: 11/04/22 23:40 Dose: 10 mg Hydralazine HCl (Hydralazine 50 Mg Tablet) 50 mg PO TID [facility] Stop: 11/05/23 05:59 Last Admin: 11/06/22 21:32 Dose: 50 mg Sodium Chloride (0.9% Sodium Chloride 500 Ml) 500 mls @ 20 mls/hr IV ONCE ONE Stop: 11/07/22 10:00 Last Admin: 11/06/22 10:37 Dose: 20 mls/hr Ferric Sodium Gluconate Complex 250 mg/ Sodium Chloride 270 mls @ 135 mls/hr IVQAM [facility] Stop: 11/09/22 09:01 Last Infusion: 11/06/22 13:03 Dose: Infused Insulin Human Regular (Insulin Regular U-500, Human 1,500 Unit/3 Ml Insuln.Pen) 45 unit SUBCUT DAILY@1700 [facility] Stop: 11/05/23 16:59 Last Admin: 11/06/22 17:13 Dose: 45 unit Insulin Human Regular (Insulin Regular U-500, Human 1,500 Unit/3 Ml Insuln.Pen) 70 unit SUBCUT DAILY@0600 [facility] Stop: 11/05/23 05:59 Last Admin: 11/07/22 05:54 Dose: 70 unit Labetalol HCl (Labetalol 100 Mg/20 Ml Vial) 10 mg IV-PUSH Q10M PRN PRN Reason: Hypertension Stop: 11/04/23 16:31 Last Admin: 11/04/22 21:41 Dose: 10 mg Levothyroxine Sodium (Levothyroxine 100 Mcg Tablet) 100 mcg PO DAILY@0630 [facility] Stop: 11/05/23 06:29 Last Admin: 11/07/22 05:55 [...] % (Auto) 87.5, Lymph % (Auto) 5.8, [place] % (Auto) 6.5, Eos % (Auto)0.1, Baso % (Auto) 0.1, Nucleat RBC Rel Count 0.1, Neut # (Auto) 10.9 H, Lymph #(Auto) 0.7 L, [place] # (Auto) 0.8, Eos # (Auto) 0.0, [...] % (Auto) 74.7, Lymph % (Auto) 13.3, [place] % (Auto) 9.0, Eos % (Auto) 2.5, Baso % (Auto) 0.5, Nucleat RBC Rel Count 0.1, Neut # (Auto) 10.0 H, Lymph # (Auto) 1.8, [place] # (Auto) 1.2 H, Eos # (Auto) [...] signed by Masoud Maria DO> 11/07/22 [address] [facility] Work Phone: 1(571) 191-434103-03-2023 Progress note Author Chintan Brewster [facility] November 06, 2022 5:26pm Note Date/Time November 06, 2022 5:26 pm [facility] [address] [place] [address] Hospitalist Progress Note Signed Patient: Evans Forte MR#: [id number] : 1970 Acct:[id number] Age/Sex: 52 / M Adm Date: 3 Loc: Room: [address] [place] [address] Type: ADM IN Attending Dr: Chintan Brewster [...] Tablet PO 11/05/23 08:59 Not Given DAILY [facility] Heparin Sodium (Porcine) 5,000 unit 11/05/22 14:00 [...] mg/ Sodium IV 11/09/22 09:01 Infused Chloride [facility] In[facility] Insulin Human Regular 45 unit 11/05/22 17:00 11/06/22 17:13 Insulin Regular U-500, Human 1,500 Unit/3 Ml Insuln.Pen SUBCUT 11/05/23 16:59 45 unit DAILY@1700 [facility] Administration Insulin Human Regular 70 unit 11/05/22 06:00 11/06/22 06:25 Insulin Regular U-500, Human 1,500 Unit/3 Ml Insuln.Pen SUBCUT 11/05/23 05:59 Not Given DAILY@0600 [facility] Insulin Human Regular 0 unit 11/06/22 12:34 [...] signed by Chintan Brewster DO> 11/06/22 1726 [facility] Work Phone: [phone] 395-582703-03-2023 Progress note Author Yocatsa Villalba [facility] November 06, 2022 2:57pm Note Date/Time November 06, 2022 2:57 pm [facility] [address] [place] [address] Nephrology Progress Note Signed Patient: Evans Forte MR#: [id number] : 1970 Acct:[id number] Age/Sex: 52 / M Adm Date: 3 Loc: Room: [address] [place] [address] Type: ADM IN Attending Dr: Chintan Brewster DO Copies to: ~ Date of Service: 11/06/2022 Subjective Subjective Narrative: This is a 52-year-old male patient with a past sickle history of chronic kidney disease stage V from diabetic nephropathy, hypertension, morbid obesity, anemia of renal disease, neuropathy. 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 Waters for hyperkalemia with potassium 5.9 [...] 500 Mg Tablet) 500 mg PO DAILY [facility] Stop: 11/05/23 08:59 Last Admin: 11/06/22 10:32 Dose: Not Given Atorvastatin Calcium (Atorvastatin 20 Mg Tablet) 20 mg PO DAILY [facility] Stop: 11/05/23 08:59 Last Admin: 11/06/22 10:32 Dose: Not Given Carvedilol (Carvedilol 25 Mg Tablet) 25 mg PO BID [facility] Stop: 11/04/23 20:59 Last Admin: 11/06/22 09:05 Dose: 25 mg Docusate Sodium (Docusate 100 Mg Capsule) 100 mg PO BID [facility] Stop: 11/06/23 20:59 Droperidol (Droperidol 5 Mg/2 Ml Vial) 1.25 mg IV-PUSH ONCE PRN PRN Reason: Nausea And Vomiting Stop: 11/06/22 16:28 Emollient Ointment (Petrolatum,White 99 Gm Oint...G.) 1 applic TOPICAL DAILY [facility] Stop: 11/05/23 09:59 Last Admin: 11/06/22 09:05 Dose: 1 applic Fenofibrate (Fenofibrate Nanocrystallized 145 Mg Tablet) 145 mg PO DAILY [facility] Stop: 11/05/23 08:59 Last Admin: 11/05/22 08:48 Dose: 145 mg Ferrous Sulfate (Ferrous Sulfate 324 Mg Tablet.Dr) 324 mg PO DAILY [facility] Stop: 11/05/23 08:59 Last Admin: 11/06/22 10:32 Dose: Not Given Folic Acid (Cyanocobalamin/Fa/Pyridoxine 1 Tab Tablet) 1 tab PO DAILY [facility] Stop: 11/05/23 08:59 Last Admin: 11/06/22 10:32 Dose: Not Given Heparin Sodium (Porcine) (Heparin 5,000 Unit/Ml Vial) 5,000 unit SUBCUT Q8HR [facility] Stop: 11/05/23 13:59 Last Admin: 11/06/22 14:15 Dose: Not Given Hydralazine HCl (Hydralazine 20 Mg/Ml Vial) 10 mg IV-PUSH Q4H PRN PRN Reason: if SBP > 185 Stop: 11/04/23 23:30 Last Admin: 11/04/22 23:40 Dose: 10 mg Hydralazine HCl (Hydralazine 50 Mg Tablet) 50 mg PO TID [facility] Stop: 11/05/23 05:59 Last Admin: 11/06/22 10:32 Dose: Not Given Sodium Chloride (0.9% Sodium Chloride 500 Ml) 500 mls @ 20 mls/hr IV ONCE ONE Stop: 11/07/22 10:00 Last Admin: 11/06/22 10:37 Dose: 20 mls/hr Ferric Sodium Gluconate Complex 250 mg/ Sodium Chloride 270 mls @ 135 mls/hr IVQAM [facility] Stop: 11/09/22 09:01 Last Infusion: 11/06/22 13:03 Dose: Infused Insulin Human Regular (Insulin Regular U-500, Human 1,500 Unit/3 Ml Insuln.Pen) 45 unit SUBCUT DAILY@1700 [facility] Stop: 11/05/23 16:59 Last Admin: 11/05/22 18:24 Dose: 45 unit Insulin Human Regular (Insulin Regular U-500, Human 1,500 Unit/3 Ml Insuln.Pen) 70 unit SUBCUT DAILY@0600 [facility] Stop: 11/05/23 05:59 Last Admin: 11/06/22 06:25 [...] 100 Mcg Tablet) 100 mcg PO DAILY@0630 [facility] Stop: 11/05/23 06:29 Last Admin: 11/06/22 06:38 [...] 50 Mg Capsule) 50 mg PO DAILY [facility] Stop: 05/04/23 08:59 Last Admin: 11/06/22 10:32 Dose: Not Given Sodium Bicarbonate (Sodium Bicarbonate 650 Mg Tablet) 1,300 mg PO BID [facility] Stop: 11/05/23 10:29 Last Admin: 11/06/22 10:32 Dose: Not Given Sodium Chloride (Sodium Chloride 0.9 % 10 Ml Syringe) 0 ml IV-PUSH PRN PRN PRN Reason: Flush Stop: 11/04/23 13:53 Sodium Zirconium Cyclosilicate 10 gm/ Sodium Zirconium Cyclosilicate 5 gm 15 gmPO DAILY [facility] Stop: 11/06/23 10:29 Vitamin A (Vitamin A [...] <Electronically signed by Yocasta Villalba MD> 11/06/22 8539 [facility] Work Phone: [phone] 845-271503-02-2023 Progress note Author Chintan Brewster [facility] November 05, 2022 3:55pm Note Date/Time November 05, 2022 3:55 pm [facility] [address] [place] [address] Hospitalist Progress Note Signed Patient: Evans Forte MR#: [id number] : 1970 Acct:[id number] Age/Sex: 52 / M Adm Date: 3 Loc: 4 Room: [address] [place] [address] Type: ADM IN Attending Dr: Chintan Brewster [...] 80 Mg Tablet PO 11/06/23 07:59 DAILY.8A [facility] Heparin Sodium (Porcine) 5,000 unit 11/05/22 14:00 [...] Unit/3 Ml Insuln.Pen SUBCUT 11/05/23 16:59 DAILY@1700 [facility] Insulin Human Regular 70 unit 11/05/22 06:00 [...] 15 54 Signed By: <Electronically signed by Chinatn Brewster DO> 11/05/22 7824 [facility] Work Phone: 1(422) 742-106203-02-2023 Consult note Author Yocasta Villalba [facility] November 05, 2022 2:39pm Note Date/Time November 05, 2022 2:39 pm [facility] [address] [place] [address] Nephrology Consult Note Signed Patient: Evans Forte MR#: [id number] : 1970 Acct:[id number] Age/Sex: 52 / M Adm Date: 3 Loc: Room: [address] [place] [address] Type: ADM IN Attending Dr: Chintan Brewster [...] was referred to the hospital by his raw cheese worker Dr. Waters for hyperkalemia with potassium 5.9 [...] 500 Mg Tablet) 500 mg PO DAILY [facility] Stop: 11/05/23 08:59 Last Admin: 11/05/22 08:49 Dose: 500 mg Atorvastatin Calcium (Atorvastatin 20 Mg Tablet) 20 mg PO DAILY [facility] Stop: 11/05/23 08:59 Last Admin: 11/05/22 08:50 Dose: 20 mg Carvedilol (Carvedilol 25 Mg Tablet) 25 mg PO BID [facility] Stop: 11/04/23 20:59 Last Admin: 11/05/22 08:50 Dose: 25 mg Emollient Ointment (Petrolatum,White 99 Gm Oint...G.) 1 applic TOPICAL DAILY [facility] Stop: 11/05/23 09:59 Fenofibrate (Fenofibrate Nanocrystallized 145 Mg Tablet) 145 mg PO DAILY [facility] Stop: 11/05/23 08:59 Last Admin: 11/05/22 08:48 Dose: 145 mg Ferrous Sulfate (Ferrous Sulfate 324 Mg Tablet.Dr) 324 mg PO DAILY [facility] Stop: 11/05/23 08:59 Last Admin: 11/05/22 08:52 Dose: 324 mg Folic Acid (Cyanocobalamin/Fa/Pyridoxine 1 Tab Tablet) 1 tab PO DAILY [facility] Stop: 11/05/23 08:59 Last Admin: 11/05/22 08:48 Dose: 1 tab Heparin Sodium (Porcine) (Heparin 5,000 Unit/Ml Vial) 5,000 unit SUBCUT Q8HR [facility] Stop: 11/05/23 13:59 Hydralazine HCl (Hydralazine 20 Mg/Ml Vial) 10 mg IV-PUSH Q4H PRN PRN Reason: if SBP > 185 Stop: 11/04/23 23:30 Last Admin: 11/04/22 23:40 Dose: 10 mg Hydralazine HCl (Hydralazine 50 Mg Tablet) 50 mg PO TID [facility] Stop: 11/05/23 05:59 Last Admin: 11/05/22 08:52 Dose: 50 mg Insulin Human Regular (Insulin Regular U-500, Human 1,500 Unit/3 Ml Insuln.Pen) 45 unit SUBCUT DAILY@1700 [facility] Stop: 11/05/23 16:59 Insulin Human Regular (Insulin Regular U-500, Human 1,500 Unit/3 Ml Insuln.Pen) 70 unit SUBCUT DAILY@0600 [facility] Stop: 11/05/23 05:59 Last Admin: 11/05/22 08:05 Dose: 70 unit Labetalol HCl (Labetalol 100 Mg/20 Ml Vial) 10 mg IV-PUSH Q10M PRN PRN Reason: Hypertension Stop: 11/04/23 16:31 Last Admin: 11/04/22 21:41 Dose: 10 mg Levothyroxine Sodium (Levothyroxine 100 Mcg Tablet) 100 mcg PO DAILY@0630 [facility] Stop: 11/05/23 06:29 Last Admin: 11/05/22 06:10 Dose: 100 mcg Nifedipine (Nifedipine Er.24hr 90 Mg Tab.Er.24) 90 mg PO DAILY [facility] Stop: 11/05/23 08:59 Last Admin: 11/05/22 08:52 Dose: 90 mg Pregabalin (Pregabalin 50 Mg Capsule) 50 mg PO DAILY [facility] Stop: 05/04/23 08:59 Last Admin: 11/05/22 08:52 Dose: 50 mg Sodium Bicarbonate (Sodium Bicarbonate 650 Mg Tablet) 650 mg PO BID [facility] Stop: 11/05/23 10:29 Last Admin: 11/05/22 12:03 Dose: 650 mg Sodium Chloride (Sodium Chloride 0.9 % 10 Ml Syringe) 0 ml IV-PUSH PRN PRN PRN Reason: Flush Stop: 11/04/23 13:53 Vitamin A (Vitamin A 3,000 Mcg (10,000 Units) Capsule) 3,000 mcg PO DAILY [facility] Stop: 11/05/23 08:59 Last Admin: 11/05/22 08:52 Dose: 3,000 mcg Vitamin D (Cholecalciferol 25 Mcg (1,000 Units) Tablet) 50 mcg PO DAILY [facility] Stop: 11/05/23 08:59 Last Admin: 11/05/22 08:50 [...] Escudero Jr., DHimanshuOHimanshu11/04/2022 3:50 PM Dictation Location: [place] [address] Any impression(s) listed above is documentation that [...] signed by Yocasta Villalba MD> 11/05/22 1439 [facility] Work Phone: [phone] 520-476903-02-2023 Consult note Author Flakito High [facility] November 05, 2022 12:31pm Note Date/Time November 05, 2022 12:3 1pm [facility] [address] [place] [address] General Surgery Consult Note Signed Patient: Evnas Forte MR#: [id number] : 1970 Acct:[id number] Age/Sex: 52 / M Adm Date: 3 Loc: Room: [address] [place] [address] Type: ADM IN Attending Dr: Chintan Brewster [...] instead of hemodialysis. He has talked his raw cheese worker about this. He is not having any [...] 5,000 Unit/Ml Vial) 5,000 unit SUBCUT Q8HR [facility] Stop: 11/05/23 13:59 Hydralazine HCl (Hydralazine 20 Mg/Ml Vial) 10 mg IV-PUSH Q4H PRN PRN Reason: if SBP > 185 Stop: 11/04/23 23:30 Last Admin: 11/04/22 23:40 Dose: 10 mg Hydralazine HCl (Hydralazine 50 Mg Tablet) 50 mg PO TID [facility] Stop: 11/05/23 05:59 Last Admin: 11/05/22 08:52 Dose: 50 mg Insulin Human Regular (Insulin Regular U-500, Human 1,500 Unit/3 Ml Insuln.Pen) 45 unit SUBCUT DAILY@1700 [facility] Stop: 11/05/23 16:59 Insulin Human Regular (Insulin Regular U-500, Human 1,500 Unit/3 Ml Insuln.Pen) 70 unit SUBCUT DAILY@0600 [facility] Stop: 11/05/23 05:59 Last Admin: 11/05/22 08:05 Dose: 70 unit Labetalol HCl (Labetalol 100 Mg/20 Ml Vial) 10 mg IV-PUSH Q10M PRN PRN Reason: Hypertension Stop: 11/04/23 16:31 Last Admin: 11/04/22 21:41 Dose: 10 mg Levothyroxine Sodium (Levothyroxine 100 Mcg Tablet) 100 mcg PO DAILY@0630 [facility] Stop: 11/05/23 06:29 Last Admin: 11/05/22 06:10 Dose: 100 mcg Nifedipine (Nifedipine Er.24hr 90 Mg Tab.Er.24) 90 mg PO DAILY [facility] Stop: 11/05/23 08:59 Last Admin: 11/05/22 08:52 Dose: 90 mg Pregabalin (Pregabalin 50 Mg Capsule) 50 mg PO DAILY [facility] Stop: 05/04/23 08:59 Last Admin: 11/05/22 08:52 Dose: 50 mg Sodium Bicarbonate (Sodium Bicarbonate 650 Mg Tablet) 650 mg PO BID [facility] Stop: 11/05/23 10:29 Last Admin: 11/05/22 12:03 Dose: 650 mg Sodium Chloride (Sodium Chloride 0.9 % 10 Ml Syringe) 0 ml IV-PUSH PRN PRN PRN Reason: Flush Stop: 11/04/23 13:53 Vitamin A (Vitamin A 3,000 Mcg (10,000 Units) Capsule) 3,000 mcg PO DAILY [facility] Stop: 11/05/23 08:59 Last Admin: 11/05/22 08:52 Dose: 3,000 mcg Vitamin D (Cholecalciferol 25 Mcg (1,000 Units) Tablet) 50 mcg PO DAILY [facility] Stop: 11/05/23 08:59 Last Admin: 11/05/22 08:50 Dose: 50 mcg Zinc Gluconate (Zinc Gluconate 50 Mg Tablet) 50 mg PO DAILY [facility] Stop: 11/05/23 08:59 Last Admin: 11/05/22 08:52 [...] % (Auto) 72.3, Lymph % (Auto) 14.6, [place] % (Auto) 9.5, Eos % (Auto) 2.8, Baso % (Auto) 0.8, Nucleat RBC Rel Count 0.0, Neut # (Auto) 9.8 H, Lymph # (Auto) 2.0, [place] # (Auto) 1.3 H, Eos # (Auto) [...] % (Auto) 74.8, Lymph % (Auto) 12.4, [place] % (Auto) 9.0, Eos % (Auto) 2.7, Baso % (Auto) 1.1, Nucleat RBC Rel Count 0.0, Neut # (Auto) 9.1 H, Lymph # (Auto) 1.5, [place] # (Auto) 1.1 H, Eos # (Auto) 0.3, Baso # (Auto) 0.1, Monocyte Dist Width 17.32 11/04/22 14:04: Urine Color Yellow, Urine Appearance Clear, Urine pH 5.5, Ur Specific [place] 1.013, Urine Protein 300 H, Urine Glucose [...] signed by DO Flakito High> 11/05/22 1231 [facility] Work Phone: [phone] 356-442403-01-2023 History and physical note Author Chintan Brewster [facility] November 04, 2022 8:11pm Note Date/Time November 04, 2022 8:11 pm [facility] [address] [place] [address] Hospitalist H&P Signed Patient: Evans Forte MR#: [id number] : 1970 Acct:[id number] Age/Sex: 52 / M Adm Date: 3 Loc: ER Room: Type: [facility] ER Attending Dr: Copies to: DO Delano Dhillon MD Michael R. Frings, ~ HPI DATE OF EXAMINATION: 11/04/22 CHIEF COMPLAINT: Abnormal labs HISTORY OF PRESENT ILLNESS: This patient is a 52-year-old male who presented to the emergency department earlier today with a chief complaint of abnormal labs at the recommendation of his raw cheese worker. He is in preparation for peritoneal dialysis [...] protein. The patient was admitted to the [facility] floor for further evaluation and treatment [...] % (Auto) 12.4 % (.) 11/04/22 15:11 [place] % (Auto) 9.0 % (.) 11/04/22 15:11 Eos % (Auto) 2.7 % (.) 11/04/22 15:11 Baso % (Auto) 1.1 % (.) 11/04/22 15:11 Nucleat RBC Rel Count 0.0 /100 WBC (0-0.5) 11/04/22 15:11 Neut # (Auto) 9.1 x10E3/uL (1.8-7.7) H 11/04/22 15:11 Lymph # (Auto) 1.5 x10E3/uL (1.00-4.8) 11/04/22 15:11 [place] # (Auto) 1.1 x10E3/uL (0.0-0.8) H 11/04/22 [...] pH 5.5 (5.0-9.0) 11/04/22 14:04 Ur Specific [place] 1.013 (1.001-1.030) 11/04/22 14:04 Urine Protein 300 [...] <Electronically signed by Chintan Brewster DO> 11/04/222010 [facility] Work Phone: 1(805) 951-215512-07-2022 Evaluation note* Encounter Date Diagnosis Assessment Notes [...] discussed with him the different option of HISTOPATH TECH including PD, 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 He is interested in PD. No need to initiate dialysis now. We will refer to the Dr. Allred once he needed to be initiated on PD. I have encouraged him to lose weight for kidney transplant. Continue follow with continues to [place] [facility]. He is a suitable candidate [...] advised him to take low potassium diet. Pin or Peg Other 10-18-2022 Hospital Discharge instructions Additional Instructions Your kidney function is within your usual range. There has been no significant worsening over the last few months. Your blood sugar is okay tonight. It was only 150 here. In terms of overall management, please call Dr. Ricketts tomorrow to discuss with her any changes in your insulin.[facility] Work Phone: [phone] 267-853909-14-2022 Evaluation note* Encounter Date Diagnosis Assessment Notes [...] discussed with him the different option of HISTOPATH TECH including PD, 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 He is interested in PD. No need to initiate dialysis now. We will refer to the Dr. Allred once he needed to be initiated on PD. I have encouraged him to lose weight for kidney transplant. Continue follow with continues to [place] [facility]. May, Hypertensive chronic kidney disease [...] advised him to take low potassium diet. Pin or Peg Other 07-07-2022 Evaluation note* Encounter Date Diagnosis [...] discussed with him the different option of HISTOPATH TECH including PD, 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 He is interested in PD. I have encouraged him to lose weight for kidney transplant. Continue follow with continues to [place] [facility]. Mar, Hypertensive chronic kidney disease with stage [...] advised him to take low potassium diet. Pin or Peg Other 06-23-2022 NotePROCEDURE: XR FOOT RT MIN [...] Electronically authenticated by: VIRGINIA GARCIA Date: 2022-02-26 16:16[facility]03-30-2022 Evaluation note* Encounter Date Diagnosis Assessment [...] discussed with him the different option of HISTOPATH TECH including PD, 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 He is interested in PD. I have encouraged him to lose weight for kidney transplant. Continue follow with continues to [place] [facility]. Nov, Hypertensive chronic kidney disease [...] advised him to take low potassium diet. Pin or Peg Other 12-16-2021 NoteHISTORY: Follow up prior CT, [...] and signed by Anibal Calle on 08/21/[address] [place] [address] Medical SpecialistConsult note Author Flakito High [facility] November 05, 2022 12:31pm Note Date/Time November 05, 2022 12:3 1pm [facility] ENTER [address] [place] [address] General Surgery Consult Note Signed Patient: Evans Forte MR#: [id number] : 1970 Acct:[id number] Age/Sex: 52 / M Adm Date: 3 Loc: 4 Room: [address] [place] [address] Type: ADM IN Attending Dr: Chintan Brewster DO Copies to: DO Chintan Dhillon, DO Flakito High DO~ History of Present Illness Date of consult: 11/05/2022 Requesting/Attending Provider: Chintan Brewster DO History of present illness: Patient has had worsening kidney function and it is gotten to the point where heneeds to start peritoneal dialysis. He is very motivated to do that instead of hemodialysis. He has talked his raw cheese worker about this. He is not having any [...] 500 Mg Tablet) 500 mg PO DAILY [facility] Stop: 11/05/23 08:59 Last Admin: 11/05/22 08:49 [...] 324 Mg Tablet.Dr) 324 mg PO DAILY [facility] Stop: 11/05/23 08:59 Last Admin: 11/05/22 08:52 Dose: 324 mg Folic Acid (Cyanocobalamin/Fa/Pyridoxine 1 Tab Tablet) 1 tab PO DAILY [facility] Stop: 11/05/23 08:59 Last Admin: 11/05/22 08:48 Dose: 1 tab Heparin Sodium (Porcine) (Heparin 5,000 Unit/Ml Vial) 5,000 unit SUBCUT Q8HR [facility] Stop: 11/05/23 13:59 Hydralazine HCl (Hydralazine 20 Mg/Ml Vial) 10 mg IV-PUSH Q4H PRN PRN Reason: if SBP > 185 Stop: 11/04/23 23:30 Last Admin: 11/04/22 23:40 Dose: 10 mg Hydralazine HCl (Hydralazine 50 Mg Tablet) 50 mg PO TID [facility] Stop: 11/05/23 05:59 Last Admin: 11/05/22 08:52 Dose: 50 mg Insulin Human Regular (Insulin Regular U-500, Human 1,500 Unit/3 Ml Insuln.Pen) 45 unit SUBCUT DAILY@1700 [facility] Stop: 11/05/23 16:59 Insulin Human Regular (Insulin Regular U-500, Human 1,500 Unit/3 Ml Insuln.Pen) 70 unit SUBCUT DAILY@0600 [facility] Stop: 11/05/23 05:59 Last Admin: 11/05/22 08:05 Dose: 70 unit Labetalol HCl (Labetalol 100 Mg/20 Ml Vial) 10 mg IV-PUSH Q10M PRN PRN Reason: Hypertension Stop: 11/04/23 16:31 Last Admin: 11/04/22 21:41 Dose: 10 mg Levothyroxine Sodium (Levothyroxine 100 Mcg Tablet) 100 mcg PO DAILY@0630 [facility] Stop: 11/05/23 06:29 Last Admin: 11/05/22 06:10 Dose: 100 mcg Nifedipine (Nifedipine Er.24hr 90 Mg Tab.Er.24) 90 mg PO DAILY [facility] Stop: 11/05/23 08:59 Last Admin: 11/05/22 08:52 [...] % (Auto) 72.3, Lymph % (Auto) 14.6, [place] % (Auto) 9.5, Eos % (Auto) 2.8, Baso % (Auto) 0.8, Nucleat RBC Rel Count 0.0, Neut # (Auto) 9.8 H, Lymph # (Auto) 2.0, [place] # (Auto) 1.3 H, Eos # (Auto) [...] % (Auto) 74.8, Lymph % (Auto) 12.4, [place] % (Auto) 9.0, Eos % (Auto) 2.7, Baso % (Auto) 1.1, Nucleat RBC Rel Count 0.0, Neut # (Auto) 9.1 H, Lymph # (Auto) 1.5, [place] # (Auto) 1.1 H, Eos # (Auto) 0.3, Baso # (Auto) 0.1, Monocyte Dist Width 17.32 11/04/22 14:04: Urine Color Yellow, Urine Appearance Clear, Urine pH 5.5, Ur Specific [place] 1.013, Urine Protein 300 H, Urine Glucose [...] signed by DO Flakito High> 11/05/22 1231 [facility] Work Phone: Consult note Author Yocasta Villalba [facility] November 05, 2022 2:39pm Note Date/Time November 05, 2022 2:39 pm [facility] ENTER [address] [place] [address] Nephrology Consult Note Signed Patient: Evans Forte MR#: [id number] : 1970 Acct:[id number] Age/Sex: 52 / M Adm Date: 3 Loc: Room: [address] [place] [address] Type: ADM IN Attending Dr: Chintan Brewster [...] was referred to the hospital by his raw cheese worker Dr. Waters for hyperkalemia with potassium 5.9 [...] 500 Mg Tablet) 500 mg PO DAILY [facility] Stop: 11/05/23 08:59 Last Admin: 11/05/22 08:49 Dose: 500 mg Atorvastatin Calcium (Atorvastatin 20 Mg Tablet) 20 mg PO DAILY [facility] Stop: 11/05/23 08:59 Last Admin: 11/05/22 08:50 Dose: 20 mg Carvedilol (Carvedilol 25 Mg Tablet) 25 mg PO BID [facility] Stop: 11/04/23 20:59 Last Admin: 11/05/22 08:50 Dose: 25 mg Emollient Ointment (Petrolatum,White 99 Gm Oint...G.) 1 applic TOPICAL DAILY [facility] Stop: 11/05/23 09:59 Fenofibrate (Fenofibrate Nanocrystallized 145 Mg Tablet) 145 mg PO DAILY [facility] Stop: 11/05/23 08:59 Last Admin: 11/05/22 08:48 Dose: 145 mg Ferrous Sulfate (Ferrous Sulfate 324 Mg Tablet.Dr) 324 mg PO DAILY [facility] Stop: 11/05/23 08:59 Last Admin: 11/05/22 08:52 Dose: 324 mg Folic Acid (Cyanocobalamin/Fa/Pyridoxine 1 Tab Tablet) 1 tab PO DAILY [facility] Stop: 11/05/23 08:59 Last Admin: 11/05/22 08:48 Dose: 1 tab Heparin Sodium (Porcine) (Heparin 5,000 Unit/Ml Vial) 5,000 unit SUBCUT Q8HR [facility] Stop: 11/05/23 13:59 Hydralazine HCl (Hydralazine 20 Mg/Ml Vial) 10 mg IV-PUSH Q4H PRN PRN Reason: if SBP > 185 Stop: 11/04/23 23:30 Last Admin: 11/04/22 23:40 Dose: 10 mg Hydralazine HCl (Hydralazine 50 Mg Tablet) 50 mg PO TID [facility] Stop: 11/05/23 05:59 Last Admin: 11/05/22 08:52 Dose: 50 mg Insulin Human Regular (Insulin Regular U-500, Human 1,500 Unit/3 Ml Insuln.Pen) 45 unit SUBCUT DAILY@1700 [facility] Stop: 11/05/23 16:59 Insulin Human Regular (Insulin Regular U-500, Human 1,500 Unit/3 Ml Insuln.Pen) 70 unit SUBCUT DAILY@0600 [facility] Stop: 11/05/23 05:59 Last Admin: 11/05/22 08:05 Dose: 70 unit Labetalol HCl (Labetalol 100 Mg/20 Ml Vial) 10 mg IV-PUSH Q10M PRN PRN Reason: Hypertension Stop: 11/04/23 16:31 Last Admin: 11/04/22 21:41 Dose: 10 mg Levothyroxine Sodium (Levothyroxine 100 Mcg Tablet) 100 mcg PO DAILY@0630 [facility] Stop: 11/05/23 06:29 Last Admin: 11/05/22 06:10 Dose: 100 mcg Nifedipine (Nifedipine Er.24hr 90 Mg Tab.Er.24) 90 mg PO DAILY [facility] Stop: 11/05/23 08:59 Last Admin: 11/05/22 08:52 Dose: 90 mg Pregabalin (Pregabalin 50 Mg Capsule) 50 mg PO DAILY [facility] Stop: 05/04/23 08:59 Last Admin: 11/05/22 08:52 Dose: 50 mg Sodium Bicarbonate (Sodium Bicarbonate 650 Mg Tablet) 650 mg PO BID [facility] Stop: 11/05/23 10:29 Last Admin: 11/05/22 12:03 Dose: 650 mg Sodium Chloride (Sodium Chloride 0.9 % 10 Ml Syringe) 0 ml IV-PUSH PRN PRN PRN Reason: Flush Stop: 11/04/23 13:53 Vitamin A (Vitamin A 3,000 Mcg (10,000 Units) Capsule) 3,000 mcg PO DAILY [facility] Stop: 11/05/23 08:59 Last Admin: 11/05/22 08:52 Dose: 3,000 mcg Vitamin D (Cholecalciferol 25 Mcg (1,000 Units) Tablet) 50 mcg PO DAILY [facility] Stop: 11/05/23 08:59 Last Admin: 11/05/22 08:50 Dose: 50 mcg Zinc Gluconate (Zinc Gluconate 50 Mg Tablet) 50 mg PO DAILY [facility] Stop: 11/05/23 08:59 Last Admin: 11/05/22 08:52 [...] Lenore Lockett Jr.OHimanshu11/04/2022 3:50 PM Dictation Location: [place] [address] Any impression(s) listed above is documentation that [...] signed by Yocasta Villalba MD> 11/05/22 1439 [facility] Work Phone: Consult note Author Yocasta Villalba [facility] November 21, 2023 10:16am Note Date/Time November 21, 2023 10: 16am [facility] ENTER [address] [place] [address] Nephrology Consult Note Signed Patient: Evans Forte MR#: [id number] : 1970 Acct:[id number] Age/Sex: 53 / M Adm Date: 4 Loc: Room: [address] [place] [address] Type: ADM IN Attending Dr: Arnol Calloway MD Copies to: DO Yocasta Dhillon MD Frederick E Doamekpor, MD~ Providers Consult Date: 11/21/23 Requesting Provider: Arnol Calloway MD Primary Care Provider: Idania Ricketts DO [facility] Reason for Consult: End-stage renal disease care History of Present Illness: This is a 53-year-old male patient with a past medical history of hypertension, hyperlipidemia, end-stage renal disease on TTS hemodialysis schedule at [facility], insulin-dependent diabetes mellitus, obstructive sleep apnea, [...] system review is negative today [facility] Medical History (Updated 11/21/23 @ 10:12 by [...] 2 Surgical History [place] of [place] [facility] [place] of [place]opedic surgery right [...] (Anastrozole 1 Mg Tablet) [facility] Stop: 11/20/24 08:59 Last Admin: 11/21/23 08:00 Dose: 1 mg Atorvastatin Calcium (Atorvastatin 20 Mg Tablet) 20 mg PO QAM [facility] Stop: 11/20/24 08:59 Last Admin: 11/21/23 08:00 Dose: 20 mg Calcitriol (Calcitriol 0.25 Mcg Capsule) 0.25 mcg PO TuThSa@0900 [facility] Stop: 11/22/24 08:59 Calcium Acetate (Calcium Acetate 667 Mg Capsule) 2,668 mg PO AC [facility] Stop: 11/20/24 07:29 Last Admin: 11/21/23 07:54 Dose: 2,668 mg Cyanocobalamin (Cyanocobalamin 1,000 Mcg Tablet) 1,000 mcg PO DAILY [facility] Stop: 11/20/24 08:59 Last Admin: 11/21/23 08:00 Dose: 1,000 mcg Heparin Sodium (Porcine) (Heparin 5,000 Unit/Ml Vial) 5,000 unit SUBCUT Q12HR [facility] Stop: 11/20/24 08:59 Last Admin: 11/21/23 08:00 Dose: 5,000 unit Linezolid (Zyvox) 600 mg in 300 mls @ 300 mls/hr IV Q12H [facility] Last Admin: 11/21/23 09:06 Dose: 300 mls/hr Ceftriaxone Sodium (Rocephin) 2 gm in 50 mls @ 100 mls/hr IV Q24H [facility] Insulin Human Regular (Insulin Regular U-500, Human 1,500 Unit/3 Ml Insuln.Pen) 50 unit SUBCUT BID [facility] Stop: 11/20/24 08:59 Last Admin: 11/21/23 08:00 Dose: 50 unit Levothyroxine Sodium (Levothyroxine 100 Mcg Tablet) 100 mcg PO DAILY.0630 [facility] Stop: 11/20/24 06:29 Last Admin: 11/21/23 05:39 [...] Gel In Packet 1 packet TRANSDERML DAILY [facility] Stop: 11/20/24 08:59 Tirzepatide [ Mounjaro] 5 Mg/0.5 Ml Pen Injector 5 mg SUBCUT Tu@0900 [facility] Stop: 11/29/24 08:59 Ondansetron HCl (Ondansetron 4 Mg/2 Ml Vial) 4 mg IV-PUSH Q8H PRN PRN Reason: Nausea And Vomiting Stop: 11/19/24 21:02 Pregabalin (Pregabalin 150 Mg Capsule) 150 mg PO BID [facility] Stop: 05/19/24 08:59 Last Admin: 11/21/23 08:00 [...] Taqueria Reese M.D.11/21/2023 8:08 AM Dictation Location: [place] [address] Any impression(s) listed above is documentation that [...] diabetic nephropathy. Patient has been going to [facility] on TTS for hemodialysis. Last hemodialysis [...] signed by Yocasta Villalba MD> 11/21/23 1016 [facility] Work Phone: Consult note Author Chintan Hernández [facility] November 22, 2023 11:26am Note Date/Time November 22, 2023 11: 26am [facility] ENTER [address] [place] [address] Infect. Disease Consult Note Signed Patient: Evans Forte MR#: [id number] : 1970 Acct:[id number] Age/Sex: 53 / M Adm Date: 4 Loc: Room: [address] [place] [address] Type: ADM IN Attending Dr: Amy Escudero DO Copies to: DO Chintan Dhillon MD Yazid Hussein, DO~ HPI Data of Consult Consult date: 11/22/23 Requesting Physician: mAy Escudero DO Primary Care Provider: Idania Ricketts [...] noted below or in HPI [facility] Medical History (Updated 11/22/23 @ 11:24 by [...] 2 Surgical History [place] of [place] [facility] [place] of orthopedic surgery right [...] 1 Mg Tablet) 1 mg PO QAM [facility] Stop: 11/20/24 08:59 Last Admin: 11/22/23 08:14 Dose: 1 mg Atorvastatin Calcium (Atorvastatin 20 Mg Tablet) 20 mg PO QAM [facility] Stop: 11/20/24 08:59 Last Admin: 11/22/23 08:13 Dose: 20 mg Calcitriol (Calcitriol 0.25 Mcg Capsule) 0.25 mcg PO TuThSa@0900 [facility] Stop: 11/22/24 08:59 Calcium Acetate (Calcium Acetate 667 Mg Capsule) 2,668 mg PO AC [facility] Stop: 11/20/24 07:29 Last Admin: 11/22/23 08:13 Dose: 2,668 mg Cyanocobalamin (Cyanocobalamin 1,000 Mcg Tablet) 1,000 mcg PO DAILY [facility] Stop: 11/20/24 08:59 Last Admin: 11/22/23 08:13 Dose: 1,000 mcg Heparin Sodium (Porcine) (Heparin 5,000 Unit/Ml Vial) 5,000 unit SUBCUT Q12HR [facility] Stop: 11/20/24 08:59 Last Admin: 11/22/23 08:14 Dose: 5,000 unit Linezolid (Zyvox) 600 mg in 300 mls @ 300 mls/hr IV Q12H [facility] Last Admin: 11/22/23 08:58 Dose: 300 mls/hr Ceftriaxone Sodium (Rocephin) 2 gm in 50 mls @ 100 mls/hr IV Q24H [facility] Last Admin: 11/21/23 19:41 Dose: 100 mls/hr Insulin Aspart (Insulin Aspart 300 Units/3 Ml Insuln.Pen) 0 units SUBCUT ACHS [facility]; Protocol Stop: 11/20/24 16:29 Last Admin: 11/22/23 08:13 Dose: Not Given Insulin Human Regular (Insulin Regular U-500, Human 1,500 Unit/3 Ml Insuln.Pen) 50 unit SUBCUT BID [facility] Stop: 11/20/24 08:59 Last Admin: 11/22/23 08:16 Dose: 50 unit Levothyroxine Sodium (Levothyroxine 100 Mcg Tablet) 100 mcg PO DAILY.0630 [facility] Stop: 11/20/24 06:29 Last Admin: 11/22/23 05:29 [...] Gel In Packet 1 packet TRANSDERML DAILY [facility] Stop: 11/20/24 08:59 Last Admin: 11/21/23 10:14 Dose: Not Given Tirzepatide [ Mounjaro] 5 Mg/0.5 Ml Pen Injector 5 mg SUBCUT Tu@0900 [facility] Stop: 11/29/24 08:59 Ondansetron HCl (Ondansetron 4 [...] 600 ml @ 300 mls/hr IV Q12H [facility] Rx# :[id number] Output: Urine 100 / 100 Other: # [...] <Electronically signed by MD Chintan Hernández> 11/22/23 1129 [facility] Work Phone: Consult note Author Gi Mondragon [facility] November 23, 2023 3:51pm Note Date/Time November 22, 2023 5:3 0pm [facility] ENTER [address] [place] [address] Podiatry Consult Note Signed Patient: Evans Forte MR#: [id number] : 1970 Acct:[id number] Age/Sex: 53 / M Adm Date: 4 Loc: Room: [address] [place] [address] Type: ADM IN Attending Dr: Amy Escudero [...] heel. He has been following with a service worker and family. Patient states that the ulcerations [...] noted below or in HPI [facility] Medical History (Updated 11/23/23 @ 10:16 by [...] 2 Surgical History History of cardiac catheterization [facility] History of orthopedic surgery right foot has [...] <Electronically signed by TIARA Mondragon> 11/23/23 1551 [facility] Work Phone: Discharge summary Author Chintan Brewster [facility] November 07, 2022 4:43pm Note Date/Time November 07, 2022 4:43 pm [facility] ENTER [address] [place] [address] Discharge Summary Signed Patient: Evans Forte MR#: [id number] : 1970 Acct:[id number] Age/Sex: 52 / M Adm Date: 3 Loc: Room: [address] [place] [address]: Chintan Brewster DO Copies to: [...] % (Auto) 87.5, Lymph % (Auto) 5.8, [place] % (Auto) 6.5, Eos % (Auto) 0.1, Baso % (Auto) 0.1, Nucleat RBC Rel Count 0.1, Neut # (Auto) 10.9 H, Lymph # (Auto) 0.7 L, [place] # (Auto) 0.8, Eos # (Auto) 0.0, [...] a prescription was provided. 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 11/12/22 at 10:30am 11/20/22 at 10:30am) Flakito High DO [Active Staff - D.O.] - (Call office on Wednesday to schedule follow-up with Dr. High) Idania Ricketts DO [Primary Care Provider] - 11/16/22 10:00 am [facility], call office to reschedule if needed. ) Documented By: Chintan Brewster DO 11/07/22 16 39 Signed By: <Electronically signed by Chintan Brewster DO> 11/07/22 3025 [facility] Work Phone: Discharge summary Author Amy Escudero [facility] November 24, 2023 1:40pm Note Date/Time November 23, 2023 5:0 1pm [facility] ENTER [address] [place] [address] Discharge Summary Signed Patient: Evans Forte MR#: [id number] : 1970 Acct:[id number] Age/Sex: 53 / M Adm Date: 4 Loc: Room: [address] [place] [address]: Amy Escudero DO Copies to: DO Shannon Dhillon APRN Yazid Hussein, ~ Providers Date of Discharge: 11/23/23 Discharging Provider: [...] wound care and will follow-up with his service worker and primary care physician outpatient. Time Spent [...] % (Auto) 63.3, Lymph % (Auto) 20.6, [place] % (Auto) 9.8, Eos % (Auto) 5.6, Baso % (Auto) 0.7, Nucleat RBC Rel Count 0.0, Neut # (Auto) 4.9, Lymph # (Auto) 1.6, [place] # (Auto) 0.8, Eos # (Auto) 0.4, [...] to schedule an appointment with your established Sales Representative [employer]. HOME HEALTH TO MANAGE: Nursing to eval [...] signed by Amy Escudero DO> 11/24/23 1340 [facility] Work Phone: Evaluation + Plan note No data available for this section [facility] Evaluation noteNo InformationNort uShip Other Evaluation noteNo assessment information available [facility] Work Phone: Evaluation note* Diagnosis Onset Date Resolution Status Acute hyperkalemia acute Chronic kidney disease acute Hypertension acute [facility] Work Phone: Evaluation note* Diagnosis Onset Date Resolution Status Acute hyperkalemia acute Acute kidney injury superimposed on CKD acute Chronic kidney disease acute CKD (chronic kidney disease) stage 5, GFR less than 15 ml/min acute Hyperkalemia acute Hypertension acute Insulin dependent diabetes mellitus acute Metabolic acidosis acute [id number] chronic [id number] chronic [facility] Work Phone: Evaluation note* Diagnosis Onset Date Resolution Status [id number] chronic [facility] Work Phone: Evaluation note* Diagnosis Peritoneal dialysis catheter dysfunction, subsequent encounter ([facility])- Primary documented in this encounter [facility] HealthcareEvaluation note* Diagnosis Onset Date Resolution Status [id number] chronic Dependence on renal dialysis acute [facility] Work Phone: Evaluation note* Diagnosis Onset Date Resolution Status Anemia of renal disease acut e Benign hypertension with end-stage renal disease acute Diabetes acute [id number] acute [id number] acute Edema of right lower extremity acute End stage renal disease acut e Fever acute Hyperparathyroidism acute Hypertension acute Hypomagnesemia acute Insulin dependent diabetes mellitus acute Sepsis acute SIRS (systemic inflammatory response syndrome) acute Type 2 diabetes mellitus wit h diabetic chronic kidney disease acute Ulcer of right foot acute Ulcer of right heel acute Vomiting acute Wound of right foot acute [facility] Work Phone: Evaluation note* Diagnosis Onset Date Resolution Status Edema of right lower extremity acute Fever resolved Hypomagnesemia resolved Sepsis resolved SIRS (systemic inflammatory response syndrome) resolved Vomiting resolved [facility] Work Phone: Evaluation note* Diagnosis Onset Date Resolution Status Edema of right lower extremity acute Fever resolved Hypomagnesemia resolved Sepsis resolved SIRS (systemic inflammatory response syndrome) resolved Vomiting resolved AV fistula acute End stage renal disease acut e ESRD on hemodialysis [facility] Work Phone: Evaluation note* Diagnosis Onset Date Resolution Status Benign hypertension with end-stage renal disease acute Edema of right lower extremity acute Type 2 diabetes mellitus wit h diabetic chronic kidney disease acute Fever resolved Hypomagnesemia resolved Sepsis resolved SIRS (systemic inflammatory response syndrome) resolved Vomiting resolved AV fistula acute End stage renal disease acut e ESRD on hemodialysis acute [facility] Work Phone: Evaluation note* Diagnosis Onset Date [...] on hemodialysis acute ESRD on hemodialysis acute [facility] Work Phone: Evaluation note* Diagnosis Ulcer of right heel and midfoot with fat layer exposed (CMS/HCC)- Primary Type 2 diabetes mellitus with peripheral neuropathy (CMS/HCC) Neuropathy Mononeuritis of unspecified site documented in this encounter [facility] HealthcareEvaluation note* Diagnosis Obstructive sleep [...] hypercholesterolemia (CMS/HCC) Pure hypercholesterolemia Long-term insulin use (CMS/[facility]) Hx of amputation of lesser toe, left (HCC) ([facility]) Other iron deficiency anemia 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 classified elsewhere (CMS/[facility]) Non-pressure chronic ulcer of other part of right foot with unspecified severity (CMS/[facility]) Type 2 diabetes mellitus with foot ulcer, with long-term current use of insulin ([facility]) Class 3 severe obesity due to excess calories with serious comorbidity and body mass index (BMI) of 40.0 to 44.9 in adult ([facility]) Type 2 diabetes mellitus with peripheral neuropathy (CMS/[facility])- Primary Anxiety Anxiety state, unspecified Ulcer of right heel and midfoot with fat layer exposed ([facility])- Primary Ulcer of right foot, limited to breakdown of skin ([facility]) Type 2 diabetes mellitus with peripheral neuropathy ([facility]) Neuropathy Mononeuritis of unspecified site Type 2 diabetes mellitus with foot ulcer, with long-term current use of insulin ([facility]) documented in this encounter [facility] HealthcareEvaluation note* Diagnosis Obstructive sleep apnea syndrome- Primary Obstructive sleep apnea (adult) (pediatric) Type 2 diabetes with nephropathy ([facility]) Type 2 diabetes mellitus with peripheral neuropathy ([facility]) 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, with long-term current use of insulin ([facility]) Long-term insulin use ([facility]) 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 ([facility]) Essential hypertension ([facility]) Unspecified essential hypertension Peripheral vascular disease ([facility]) Unspecified peripheral vascular disease End stage renal disease (CMS/[facility]) End stage renal disease Type 2 diabetes mellitus with ESRD (end-stage renal disease) (CMS/[facility]) Acquired hypothyroidism (CMS/[facility]) Unspecified hypothyroidism Dependence on renal dialysis ([facility]) Renal dialysis status Pure hypercholesterolemia (CMS/HCC) Pure hypercholesterolemia Chronic maxillary sinusitis Class 3 severe obesity due to excess calories with serious comorbidity and body mass index (BMI) of 45.0 to 49.9 in adult ([facility]) Adrenal nodule (CMS/[facility]) Benign neoplasm of adrenal gland Anxiety Anxiety state, unspecified Hx of amputation of lesser toe, left (HCC) (CMS/[facility]) Obstructive sleep apnea syndrome- Primary Obstructive sleep apnea (adult) (pediatric) Primary insomnia Persistent disorder of initiating or maintaining sleep 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 ([facility]) Type 2 diabetes mellitus with peripheral neuropathy ([facility]) Essential hypertension ([facility]) Unspecified essential hypertension Peripheral vascular disease ([facility] Unspecified peripheral vascular disease End stage renal disease ([facility]) End stage renal disease Acquired hypothyroidism ([facility]) Unspecified hypothyroidism Type 2 diabetes mellitus with ESRD (end-stage renal disease) ([facility]) 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, with long-term current use of insulin ([facility]) Chronic kidney disease with end stage renal disease on dialysis due to type 2 diabetes mellitus ([facility]) Dependence on renal dialysis ([facility]) Renal dialysis status Anxiety Anxiety state, unspecified Pure hypercholesterolemia ([facility]) Pure hypercholesterolemia Long-term insulin use ([facility]) Hx of amputation of lesser toe, left (HCC) ([facility]) Other iron deficiency anemia 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 classified elsewhere ([facility]) Non-pressure chronic ulcer of other part of right foot with unspecified severity ([facility]) Type 2 diabetes mellitus with foot ulcer, with long-term current use of insulin ([facility]) Class 3 severe obesity due to excess calories with serious comorbidity and body mass index (BMI) of 40.0 to 44.9 in adult ([facility]) Type 2 diabetes mellitus with peripheral neuropathy ([facility])- Primary Anxiety Anxiety state, unspecified Obstructive sleep apnea syndrome- Primary Obstructive sleep apnea (adult) (pediatric) 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 ([facility]) Type 2 diabetes mellitus with peripheral neuropathy ([facility]) Essential hypertension ([facility]) Unspecified essential hypertension Peripheral vascular disease ([facility]) Unspecified peripheral vascular disease End stage renal disease ([facility]) End stage renal disease Acquired hypothyroidism ([facility]) Unspecified hypothyroidism Type 2 diabetes mellitus with ESRD (end-stage renal disease) ([facility]) 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, with long-term current use of insulin ([facility]) Chronic kidney disease with end stage renal disease on dialysis due to type 2 diabetes mellitus (CMS/HCC) Anxiety Anxiety state, unspecified Dependence on renal dialysis (CMS/HCC) Renal dialysis status Pure hypercholesterolemia (CMS/HCC) Pure hypercholesterolemia Long-term insulin use (CMS/HCC) Hx of amputation of lesser toe, left ([facility]) (CMS/[facility]) Class 3 severe obesity due to excess calories with serious comorbidity and body mass index (BMI) of 40.0 to 44.9 in adult (CMS/[facility]) Inguinal adenopathy Enlargement of lymph nodes documented in this encounter [facility]Evaluation [facility]* Diagnosis Ulcer of right heel and midfoot with fat layer exposed (CMS/HCC)- Primary Neuropathy Mononeuritis of unspecified site Ulcer of right foot, limited to breakdown of skin (CMS/HCC) Type 2 diabetes mellitus with peripheral neuropathy (CMS/HCC) documented in this encounter [facility]* Diagnosis 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 (CMS/[facility]) documented in this encounter [facility]* Diagnosis Ulcer of right heel and midfoot with fat layer exposed ([facility])- Primary Ulcer of right foot, limited to breakdown of skin (CMS/[facility]) documented in this encounter [facility]* Diagnosis Type 2 diabetes mellitus with peripheral neuropathy ([facility])- Primary Anxiety Anxiety state, unspecified documented in this encounter [facility]* Diagnosis Neuropathy- Primary Mononeuritis of unspecified site Type 2 diabetes mellitus with peripheral neuropathy ([facility]/HCC) documented in this encounter [facility]* Diagnosis Obstructive sleep apnea syndrome- Primary Obstructive sleep apnea (adult) (pediatric) Type 2 diabetes with nephropathy ([facility]) Type 2 diabetes mellitus with peripheral neuropathy ([facility]) 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, with long-term current use of insulin (CMS/HCC) Long-term insulin use ([facility]) 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 (CMS/HCC) Essential hypertension (CMS/HCC) Unspecified essential hypertension Peripheral vascular disease (CMS/HCC) Unspecified peripheral vascular disease End stage renal disease (CMS/[facility]) End stage renal disease Type 2 diabetes mellitus with ESRD (end-stage renal disease) (CMS/[facility]) Acquired hypothyroidism (CMS/HCC) Unspecified hypothyroidism Dependence on renal dialysis (CMS/HCC) Renal dialysis status Pure hypercholesterolemia (CMS/HCC) Pure hypercholesterolemia Chronic maxillary sinusitis Class 3 severe obesity due to excess calories with serious comorbidity and body mass index (BMI) of 45.0 to 49.9 in adult ([facility]) Adrenal nodule ([facility]) Benign neoplasm of adrenal gland Anxiety Anxiety state, unspecified Hx of amputation of lesser toe, left (HCC) ([facility]) Obstructive sleep apnea syndrome- Primary Obstructive sleep apnea (adult) (pediatric) Primary insomnia Persistent disorder of initiating or maintaining sleep 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 ([facility]) Type 2 diabetes mellitus with peripheral neuropathy ([facility]) Essential hypertension ([facility]) Unspecified essential hypertension Peripheral vascular disease ([facility]) Unspecified peripheral vascular disease End stage renal disease ([facility]) End stage renal disease Acquired hypothyroidism ([facility]) Unspecified hypothyroidism Type 2 diabetes mellitus with ESRD (end-stage renal disease) ([facility]) 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, with long-term current use of insulin ([facility]) Chronic kidney disease with end stage renal disease on dialysis due to type 2 diabetes mellitus ([facility]) Dependence on renal dialysis ([facility]) Renal dialysis status Anxiety Anxiety state, unspecified Pure hypercholesterolemia ([facility]) Pure hypercholesterolemia Long-term insulin use ([facility]) Hx of amputation of lesser toe, left (HCC) ([facility]) Other iron deficiency anemia 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 classified elsewhere ([facility]) Non-pressure chronic ulcer of other part of right foot with unspecified severity ([facility]) Type 2 diabetes mellitus with foot ulcer, with long-term current use of insulin ([facility]) Class 3 severe obesity due to excess calories with serious comorbidity and body mass index (BMI) of 40.0 to 44.9 in adult ([facility]) Type 2 diabetes mellitus with peripheral neuropathy ([facility])- Primary Anxiety Anxiety state, unspecified Obstructive sleep apnea syndrome- Primary Obstructive sleep apnea (adult) (pediatric) 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 ([facility]) Type 2 diabetes mellitus with peripheral neuropathy ([facility]) Essential hypertension ([facility]) Unspecified essential hypertension Peripheral vascular disease ([facility]) Unspecified peripheral vascular disease End stage renal disease ([facility]) End stage renal disease Acquired hypothyroidism ([facility]) Unspecified hypothyroidism Type 2 diabetes mellitus with ESRD (end-stage renal disease) ([facility]) 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, with long-term current use of insulin ([facility]) Chronic kidney disease with end stage renal disease on dialysis due to type 2 diabetes mellitus ([facility]) Anxiety Anxiety state, unspecified Dependence on renal dialysis ([facility]) Renal dialysis status Pure hypercholesterolemia (CMS/HCC) Pure hypercholesterolemia Long-term insulin use ([facility]) Hx of amputation of lesser toe, left (HCC) ([facility]) Class 3 severe obesity due to excess calories with serious comorbidity and body mass index (BMI) of 40.0 to 44.9 in adult ([facility]) Inguinal adenopathy Enlargement of lymph nodes Chronic venous insufficiency- Primary Unspecified venous (peripheral) insufficiency Lymphedema Other noninfectious lymphedema documented in this encounter [facility] HealthcareEvaluation note* Diagnosis Obstructive sleep apnea syndrome- Primary Obstructive sleep apnea (adult) (pediatric) Type 2 diabetes with nephropathy ([facility]) Type 2 diabetes mellitus with peripheral neuropathy ([facility]) 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, with long-term current use of insulin ([facility]) Long-term insulin use ([facility]) 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 ([facility]) Essential hypertension ([facility]) Unspecified essential hypertension Peripheral vascular disease ([facility]) Unspecified peripheral vascular disease End stage renal disease ([facility]) End stage renal disease Type 2 diabetes mellitus with ESRD (end-stage renal disease) ([facility]) Acquired hypothyroidism ([facility]) Unspecified hypothyroidism Dependence on renal dialysis ([facility]) Renal dialysis status Pure hypercholesterolemia ([facility]) Pure hypercholesterolemia Chronic maxillary sinusitis Class 3 severe obesity due to excess calories with serious comorbidity and body mass index (BMI) of 45.0 to 49.9 in adult ([facility]/HCC) Adrenal nodule ([facility]) Benign neoplasm of adrenal gland Anxiety Anxiety state, unspecified Hx of amputation of lesser toe, left (HCC) ([facility]) Obstructive sleep apnea syndrome- Primary Obstructive sleep apnea (adult) (pediatric) Primary insomnia Persistent disorder of initiating or maintaining sleep 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 (CMS/HCC) Type 2 diabetes mellitus with peripheral neuropathy ([facility]) Essential hypertension ([facility]) Unspecified essential hypertension Peripheral vascular disease ([facility] Unspecified peripheral vascular disease End stage renal disease ([facility]) End stage renal disease Acquired hypothyroidism ([facility]) Unspecified hypothyroidism Type 2 diabetes mellitus with ESRD (end-stage renal disease) ([facility]) 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, with long-term current use of insulin ([facility]) Chronic kidney disease with end stage renal disease on dialysis due to type 2 diabetes mellitus ([facility]) Dependence on renal dialysis ([facility]) Renal dialysis status Anxiety Anxiety state, unspecified Pure hypercholesterolemia ([facility]) Pure hypercholesterolemia Long-term insulin use ([facility]) Hx of amputation of lesser toe, left (HCC) ([facility]) Other iron deficiency anemia 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 classified elsewhere ([facility]) Non-pressure chronic ulcer of other part of right foot with unspecified severity ([facility]) Type 2 diabetes mellitus with foot ulcer, with long-term current use of insulin ([facility]) Class 3 severe obesity due to excess calories with serious comorbidity and body mass index (BMI) of 40.0 to 44.9 in adult ([facility]) Type 2 diabetes mellitus with peripheral neuropathy ([facility])- Primary Anxiety Anxiety state, unspecified Obstructive sleep apnea syndrome- Primary Obstructive sleep apnea (adult) (pediatric) 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 ([facility]) Type 2 diabetes mellitus with peripheral neuropathy ([facility]) Essential hypertension ([facility]) Unspecified essential hypertension Peripheral vascular disease ([facility]) Unspecified peripheral vascular disease End stage renal disease ([facility]) End stage renal disease Acquired hypothyroidism ([facility]) Unspecified hypothyroidism Type 2 diabetes mellitus with ESRD (end-stage renal disease) ([facility]) 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, with long-term current use of insulin ([facility]) Chronic kidney disease with end stage renal disease on dialysis due to type 2 diabetes mellitus ([facility]) Anxiety Anxiety state, unspecified Dependence on renal dialysis ([facility]) Renal dialysis status Pure hypercholesterolemia ([facility]) Pure hypercholesterolemia Long-term insulin use ([facility]) Hx of amputation of lesser toe, left (HCC) ([facility]/HCC) Class 3 severe obesity due to excess [...] of unspecified site documented in this encounter [facility] HealthcareEvaluation note* Diagnosis Obstructive sleep apnea syndrome- Primary Obstructive sleep apnea (adult) (pediatric) Type 2 diabetes with nephropathy (CMS/HCC) Type 2 diabetes mellitus with peripheral neuropathy (CMS/HCC) 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, with long-term current use of insulin (CMS/HCC) Long-term insulin use ([facility]) Type 2 diabetes mellitus with [...] Hx of amputation of lesser toe, left ([facility]) (CMS/HCC) Obstructive sleep apnea syndrome- [...] diabetes mellitus with ESRD (end-stage renal disease) ([facility]) 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, with long-term current use of insulin (CMS/[facility]) Chronic kidney disease with end stage renal disease on dialysis due to type 2 diabetes mellitus ([facility]) Dependence on renal dialysis ([facility]) Renal dialysis status Anxiety Anxiety state, unspecified Pure hypercholesterolemia ([facility]) Pure hypercholesterolemia Long-term insulin use ([facility]) Hx of amputation of lesser toe, left (HCC) ([facility]) Other iron deficiency anemia 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 classified elsewhere ([facility]) Non-pressure chronic ulcer of other part of right foot with unspecified severity ([facility]) Type 2 diabetes mellitus with foot ulcer, with long-term current use of insulin ([facility]) Class 3 severe obesity due to excess calories with serious comorbidity and body mass index (BMI) of 40.0 to 44.9 in adult ([facility]) Type 2 diabetes mellitus with peripheral neuropathy ([facility])- Primary Anxiety Anxiety state, unspecified Obstructive sleep apnea syndrome- Primary Obstructive sleep apnea (adult) (pediatric) 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 ([facility]) Type 2 diabetes mellitus with peripheral neuropathy ([facility]) Essential hypertension ([facility]) Unspecified essential hypertension Peripheral vascular disease ([facility] Unspecified peripheral vascular disease End stage renal disease ([facility]) End stage renal disease Acquired hypothyroidism ([facility]) Unspecified hypothyroidism Type 2 diabetes mellitus with ESRD (end-stage renal disease) ([facility]) 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, with long-term current use of insulin ([facility]) Chronic kidney disease with end stage renal disease on dialysis due to type 2 diabetes mellitus ([facility] [facility] Anxiety Anxiety state, unspecified Dependence on renal dialysis ([facility]) Renal dialysis status Pure hypercholesterolemia ([facility]) Pure hypercholesterolemia Long-term insulin use ([facility]) Hx of amputation of lesser toe, left (HCC) ([facility]) Class 3 severe obesity due to excess calories with serious comorbidity and body mass index (BMI) of 40.0 to 44.9 in adult ([facility]) Inguinal adenopathy Enlargement of lymph nodes Lymphedema- Primary Other noninfectious lymphedema End stage renal disease ([facility]) End stage renal disease Venous stasis dermatitis documented in this encounter [facility]* Diagnosis Obstructive sleep apnea syndrome- Primary Obstructive sleep apnea (adult) (pediatric) Type 2 diabetes with nephropathy (CMS/HCC) Type 2 diabetes mellitus with peripheral neuropathy ([facility]/HCC) 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, with long-term current use of insulin (CMS/HCC) Long-term insulin use ([facility]) 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 (CMS/HCC) Essential hypertension (CMS/HCC) Unspecified essential hypertension Peripheral vascular disease (CMS/HCC) Unspecified peripheral vascular disease End stage renal disease (CMS/HCC) End stage renal disease Type 2 diabetes mellitus with ESRD (end-stage renal disease) (CMS/[facility]) Acquired hypothyroidism (CMS/[facility]) Unspecified hypothyroidism Dependence on renal dialysis (CMS/[facility]) Renal dialysis status Pure hypercholesterolemia (CMS/[facility]) Pure hypercholesterolemia Chronic maxillary sinusitis Class 3 severe obesity due to excess calories with serious comorbidity and body mass index (BMI) of 45.0 to 49.9 in adult ([facility]) Adrenal nodule ([facility]) Benign neoplasm of adrenal gland Anxiety Anxiety state, unspecified Hx of amputation of lesser toe, left (HCC) ([facility]) Obstructive sleep apnea syndrome- Primary Obstructive sleep apnea (adult) (pediatric) Primary insomnia Persistent disorder of initiating or maintaining sleep 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 (CMS/HCC) Type 2 diabetes mellitus with peripheral neuropathy ([facility]/HCC) Essential hypertension ([facility]/HCC) Unspecified essential hypertension Peripheral vascular disease ([facility]/HCC) Unspecified peripheral vascular disease End stage renal disease (CMS/[facility]) End stage renal disease Acquired hypothyroidism ([facility]) Unspecified hypothyroidism Type 2 diabetes mellitus with ESRD (end-stage renal disease) ([facility]) 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, with long-term current use of insulin ([facility]) Chronic kidney disease with end stage renal disease on dialysis due to type 2 diabetes mellitus (CMS/HCC) Dependence on renal dialysis ([facility]) Renal dialysis status Anxiety Anxiety state, unspecified Pure hypercholesterolemia (CMS/HCC) Pure hypercholesterolemia Long-term insulin use ([facility]) Hx of amputation of lesser toe, left (HCC) ([facility]) Other iron deficiency anemia 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 classified elsewhere ([facility]) Non-pressure chronic ulcer of other part of right foot with unspecified severity ([facility]/HCC) Type 2 diabetes mellitus with foot ulcer, with long-term current use of insulin ([facility]) Class 3 severe obesity due to excess calories with serious comorbidity and body mass index (BMI) of 40.0 to 44.9 in adult ([facility]/HCC) Type 2 diabetes mellitus with peripheral neuropathy (CMS/HCC)- Primary Anxiety Anxiety state, unspecified Obstructive sleep apnea syndrome- Primary Obstructive sleep apnea (adult) (pediatric) 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 (CMS/HCC) Type 2 diabetes mellitus with peripheral neuropathy (CMS/HCC) Essential hypertension (CMS/HCC) Unspecified essential hypertension Peripheral vascular disease (CMS/HCC) Unspecified peripheral vascular disease End stage renal disease (CMS/[facility]) End stage renal disease Acquired hypothyroidism ([facility]) Unspecified hypothyroidism Type 2 diabetes mellitus with ESRD (end-stage renal disease) ([facility]) 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, with long-term current use of insulin ([facility]) Chronic kidney disease with end stage renal disease on dialysis due to type 2 diabetes mellitus ([facility]) Anxiety Anxiety state, unspecified Dependence on renal dialysis ([facility]) Renal dialysis status Pure hypercholesterolemia (CMS/HCC) Pure hypercholesterolemia Long-term insulin use ([facility]) Hx of amputation of lesser toe, left ([facility]) ([facility]) Class 3 severe obesity due to excess calories with serious comorbidity and body mass index (BMI) of 40.0 to 44.9 in adult ([facility]) Inguinal adenopathy Enlargement of lymph nodes Bilious vomiting with nausea- Primary Type 2 diabetes mellitus with peripheral neuropathy ([facility]) documented in this encounter [facility] HealthcareEvaluation note* Diagnosis Obstructive sleep apnea syndrome- Primary Obstructive sleep apnea (adult) (pediatric) Type 2 diabetes with nephropathy (CMS/[facility]) Type 2 diabetes mellitus with peripheral neuropathy ([facility]) 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, with long-term current use of insulin ([facility]/HCC) Long-term insulin use ([facility]) 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 (CMS/HCC) Essential hypertension (CMS/[facility]) Unspecified essential hypertension Peripheral vascular disease (CMS/HCC) Unspecified peripheral vascular disease End stage renal disease ([facility]) End stage renal disease Type 2 diabetes mellitus with ESRD (end-stage renal disease) ([facility]) Acquired hypothyroidism ([facility]) Unspecified hypothyroidism Dependence on renal dialysis ([facility]) Renal dialysis status Pure hypercholesterolemia ([facility]) Pure hypercholesterolemia Chronic maxillary sinusitis Class 3 severe obesity due to excess calories with serious comorbidity and body mass index (BMI) of 45.0 to 49.9 in adult ([facility]) Adrenal nodule ([facility]) Benign neoplasm of adrenal gland Anxiety Anxiety state, unspecified Hx of amputation of lesser toe, left (HCC) ([facility]) Obstructive sleep apnea syndrome- Primary Obstructive sleep apnea (adult) (pediatric) Primary insomnia Persistent disorder of initiating or maintaining sleep 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 ([facility]) Type 2 diabetes mellitus with peripheral neuropathy ([facility] Essential hypertension ([facility]) Unspecified essential hypertension Peripheral vascular disease ([facility]) Unspecified peripheral vascular disease End stage renal disease ([facility]) End stage renal disease Acquired hypothyroidism ([facility]) Unspecified hypothyroidism Type 2 diabetes mellitus with ESRD (end-stage renal disease) ([facility]) 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, with long-term current use of insulin ([facility]) Chronic kidney disease with end stage renal disease on dialysis due to type 2 diabetes mellitus ([facility]) Dependence on renal dialysis ([facility]) Renal dialysis status Anxiety Anxiety state, unspecified Pure hypercholesterolemia ([facility]) Pure hypercholesterolemia Long-term insulin use ([facility]) Hx of amputation of lesser toe, left (HCC) ([facility]) Other iron deficiency anemia 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 classified elsewhere ([facility]) Non-pressure chronic ulcer of other part of right foot with unspecified severity ([facility]) Type 2 diabetes mellitus with foot ulcer, with long-term current use of insulin ([facility]) Class 3 severe obesity due to excess calories with serious comorbidity and body mass index (BMI) of 40.0 to 44.9 in adult ([facility]) Type 2 diabetes mellitus with peripheral neuropathy ([facility])- Primary Anxiety Anxiety state, unspecified Obstructive sleep apnea syndrome- Primary Obstructive sleep apnea (adult) (pediatric) 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 ([facility]) Type 2 diabetes mellitus with peripheral neuropathy ([facility]) Essential hypertension (CMS/HCC) Unspecified essential hypertension Peripheral vascular disease (CMS/HCC) Unspecified peripheral vascular disease End stage renal disease (CMS/HCC) End stage renal disease Acquired hypothyroidism (CMS/[facility]) Unspecified hypothyroidism Type 2 diabetes mellitus with ESRD (end-stage renal disease) ([facility]) 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, with long-term current use of insulin ([facility]) Chronic kidney disease with end stage renal disease on dialysis due to type 2 diabetes mellitus (CMS/[facility]) Anxiety Anxiety state, unspecified Dependence on renal dialysis (CMS/[facility]) Renal dialysis status Pure hypercholesterolemia (CMS/HCC) Pure hypercholesterolemia Long-term insulin use (CMS/[facility]) Hx of amputation of lesser toe, left ([facility]) ([facility]) Class 3 severe obesity due to excess calories with serious comorbidity and body mass index (BMI) of 40.0 to 44.9 in adult (CMS/[facility]) Inguinal adenopathy Enlargement of lymph nodes Bilious vomiting with nausea- Primary Type 2 diabetes mellitus with peripheral neuropathy ([facility]) Neuropathy- Primary Mononeuritis of unspecified site Ulcer of right heel and midfoot with fat layer exposed ([facility]) Ulcer of right foot, limited to breakdown of skin ([facility]) Type 2 diabetes mellitus with peripheral neuropathy ([facility]) Chronic kidney disease due to diabetes mellitus ([facility]) documented in this encounter [facility] HealthcareEvaluation note* Diagnosis Obstructive sleep apnea syndrome- Primary Obstructive sleep apnea (adult) (pediatric) Type 2 diabetes with nephropathy ([facility]) Type 2 diabetes mellitus with peripheral neuropathy ([facility]) 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, with long-term current use of insulin ([facility]) Long-term insulin use ([facility]) 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 ([facility]) Essential hypertension ([facility]) Unspecified essential hypertension Peripheral vascular disease ([facility]/HCC) Unspecified peripheral vascular disease End stage renal disease ([facility]) End stage renal disease Type 2 diabetes mellitus with ESRD (end-stage renal disease) ([facility]) Acquired hypothyroidism (CMS/[facility]) Unspecified hypothyroidism Dependence on renal dialysis ([facility]) Renal dialysis status Pure hypercholesterolemia ([facility]) Pure hypercholesterolemia Chronic maxillary sinusitis Class 3 severe obesity due to excess calories with serious comorbidity and body mass index (BMI) of 45.0 to 49.9 in adult Adrenal nodule ([facility]) Benign neoplasm of adrenal gland Anxiety Anxiety state, unspecified Hx of amputation of lesser toe, left (HCC) ([facility]) Obstructive sleep apnea syndrome- Primary Obstructive sleep apnea (adult) (pediatric) Primary insomnia Persistent disorder of initiating or maintaining sleep 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 ([facility]) Type 2 diabetes mellitus with peripheral neuropathy ([facility] Essential hypertension ([facility]) Unspecified essential hypertension Peripheral vascular disease ([facility]) Unspecified peripheral vascular disease End stage renal disease ([facility]) End stage renal disease Acquired hypothyroidism ([facility]) Unspecified hypothyroidism Type 2 diabetes mellitus with ESRD (end-stage renal disease) ([facility]) 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, with long-term current use of insulin ([facility]) Chronic kidney disease with end stage renal disease on dialysis due to type 2 diabetes mellitus ([facility]) Dependence on renal dialysis ([facility]) Renal dialysis status Anxiety Anxiety state, unspecified Pure hypercholesterolemia ([facility]) Pure hypercholesterolemia Long-term insulin use ([facility]) Hx of amputation of lesser toe, left (HCC) ([facility]) Other iron deficiency anemia 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 classified elsewhere ([facility]) Non-pressure chronic ulcer of other part of right foot with unspecified severity ([facility]) Type 2 diabetes mellitus with foot ulcer, with long-term current use of insulin ([facility]) Class 3 severe obesity due to excess calories with serious comorbidity and body mass index (BMI) of 40.0 to 44.9 in adult Type 2 diabetes mellitus with peripheral neuropathy ([facility])- Primary Anxiety Anxiety state, unspecified Obstructive sleep apnea syndrome- Primary Obstructive sleep apnea (adult) (pediatric) 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 ([facility]) Type 2 diabetes mellitus with peripheral neuropathy ([facility] Essential hypertension ([facility]) Unspecified essential hypertension Peripheral vascular disease ([facility]) Unspecified peripheral vascular disease End stage renal disease ([facility]) End stage renal disease Acquired hypothyroidism ([facility]) Unspecified hypothyroidism Type 2 diabetes mellitus with ESRD (end-stage renal disease) ([facility]) 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, with long-term current use of insulin (CMS/HCC) Chronic kidney disease with end stage renal disease on dialysis due to type 2 diabetes mellitus (CMS/[facility]) Anxiety Anxiety state, unspecified Dependence on renal dialysis (CMS/HCC) Renal dialysis status Pure hypercholesterolemia (CMS/HCC) Pure hypercholesterolemia Long-term insulin use (CMS/HCC) Hx of amputation of lesser toe, left (HCC) ([facility]) Class 3 severe obesity due to excess calories with serious comorbidity and body mass index (BMI) of 40.0 to 44.9 in adult Inguinal adenopathy Enlargement of lymph nodes Bilious vomiting with nausea- Primary Type 2 diabetes mellitus with peripheral neuropathy ([facility]) 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 ([facility])- Primary Type 2 diabetes mellitus with peripheral neuropathy ([facility]) Obstructive sleep apnea syndrome Obstructive sleep apnea (adult) (pediatric) Essential hypertension ([facility]) Unspecified essential hypertension Peripheral vascular disease ([facility]) Unspecified peripheral vascular disease End stage renal disease ([facility]) End stage renal disease Type 2 diabetes mellitus with foot ulcer, with long-term current use of insulin ([facility]) Acquired hypothyroidism ([facility]) Unspecified hypothyroidism 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, with long-term current use of insulin ([facility]) Class 3 severe obesity due to excess calories with serious comorbidity and body mass index (BMI) of 40.0 to 44.9 in adult Chronic kidney disease with end stage renal disease on dialysis due to type 2 diabetes mellitus ([facility]) Anxiety Anxiety state, unspecified Dependence on renal dialysis ([facility]) Renal dialysis status Pure hypercholesterolemia (CMS/HCC) Pure hypercholesterolemia Long-term insulin use ([facility]) Hx of amputation of lesser toe, left (HCC) ([facility]) documented in this encounter [facility] HealthcareEvaluation note* Diagnosis Idiopathic peripheral neuropathy- Primary Unspecified hereditary and idiopathic peripheral neuropathy End stage renal disease (HCC) End stage renal disease Hyperkalemia Hyperpotassemia Idiopathic peripheral neuropathy Unspecified hereditary and idiopathic peripheral neuropathy [facility] Diagnosis Onset Date Resolution Status Admit Date Diabetic peripheral neuropathy acute February 13, 2025 8:20am Lumbar radiculopathy acute February 13, 2025 8:20am Other chronic pain acute February [id number] 8:20am [facility] Work Phone: Evaluation note* Diagnosis Obstructive [...] diabetes mellitus with ESRD (end-stage renal disease) ([facility]) Acquired hypothyroidism Unspecified hypothyroidism Dependence on renal dialysis Renal dialysis status Pure hypercholesterolemia Pure hypercholesterolemia Chronic maxillary sinusitis Class 3 severe obesity due to excess calories with serious comorbidity and body mass index (BMI) of 45.0 to 49.9 in adult ([facility]-HCC) Adrenal nodule (HCC) Benign neoplasm of adrenal gland Anxiety Anxiety state, unspecified Hx of amputation of lesser toe, left ([facility]) Obstructive sleep apnea syndrome- Primary Obstructive sleep [...] anemia 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 classified elsewhere ([facility]) Non-pressure chronic ulcer of other part of right foot with unspecified severity ([facility]) Type 2 diabetes mellitus with foot ulcer, with long-term current use of insulin ([facility]) Class 3 severe obesity due to excess calories with serious comorbidity and body mass index (BMI) of 40.0 to 44.9 in adult ([facility]) Type 2 diabetes mellitus with [...] Hx of amputation of lesser toe, left ([facility]) Class 3 severe obesity due to excess calories with serious comorbidity and body mass index (BMI) of 40.0 to 44.9 in adult ([facility]) Inguinal adenopathy Enlargement of lymph [...] edema, with long-term current use of insulin ([facility]) Class 3 severe obesity due to excess calories with serious comorbidity and body mass index (BMI) of 40.0 to 44.9 in adult ([facility]) Chronic kidney disease with end stage renal disease on dialysis due to type 2 diabetes mellitus (HCC) Anxiety Anxiety state, unspecified Dependence on renal dialysis Renal dialysis status Pure hypercholesterolemia Pure hypercholesterolemia Long-term insulin use (HCC) Hx of amputation of lesser toe, left ([facility]) 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) documented in this encounter [facility] HealthcareEvaluation note* Diagnosis Spinal stenosis of lumbar region with neurogenic claudication- Primary Diabetic peripheral neuropathy ([facility]) Type II or unspecified type diabetes mellitus with neurological manifestations, not stated as uncontrolled Spinal stenosis of lumbar region with neurogenic claudication- Primary Spinal stenosis of lumbar region with neurogenic claudication [facility] Diagnosis Chronic foot pain, unspecified laterality- Primary [facility] Diagnosis Diabetic peripheral neuropathy ([facility])- Primary Type II or unspecified type diabetes mellitus with neurological manifestations, not stated as uncontrolled [facility] Diagnosis Spinal stenosis of lumbar region with neurogenic claudication- Primary Diabetic peripheral neuropathy ([facility]) Type II or unspecified type diabetes mellitus with neurological manifestations, not stated as uncontrolled Spinal stenosis of lumbar region with neurogenic claudication- Primary Spinal stenosis of lumbar region with neurogenic claudication [facility] Diagnosis Obstructive sleep apnea syndrome- Primary [...] (BMI) of 45.0 to 49.9 in adult ([facility]) Adrenal nodule (HCC) Benign neoplasm of adrenal gland Anxiety Anxiety state, unspecified Hx of amputation of lesser toe, left ([facility]) Obstructive sleep apnea syndrome- Primary Obstructive sleep [...] diabetes mellitus with ESRD (end-stage renal disease) ([facility]) 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, with long-term current use of insulin ([facility]) Chronic kidney disease with end stage renal disease on dialysis due to type 2 diabetes mellitus ([facility]) Dependence on renal dialysis Renal dialysis status Anxiety Anxiety state, unspecified Pure hypercholesterolemia Pure hypercholesterolemia Long-term insulin use (HCC) Hx of amputation of lesser toe, left ([facility]) Other iron deficiency anemia 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 classified elsewhere ([facility]) Non-pressure chronic ulcer of other part of right foot with unspecified severity ([facility]) Type 2 diabetes mellitus with foot ulcer, with long-term current use of insulin ([facility]) Class 3 severe obesity due to excess calories with serious comorbidity and body mass index (BMI) of 40.0 to 44.9 in adult ([facility]) Type 2 diabetes mellitus with peripheral neuropathy ([facility])- Primary Anxiety Anxiety state, unspecified Obstructive sleep apnea syndrome- Primary Obstructive sleep apnea (adult) (pediatric) 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 ([facility]) Type 2 diabetes mellitus with peripheral neuropathy ([facility]) Essential hypertension Unspecified essential hypertension Peripheral vascular disease Unspecified peripheral vascular disease End stage renal disease (HCC) End stage renal disease Acquired hypothyroidism Unspecified hypothyroidism Type 2 diabetes mellitus with ESRD (end-stage renal disease) ([facility]) 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, with long-term current use of insulin ([facility]) Chronic kidney disease with end stage renal disease on dialysis due to type 2 diabetes mellitus ([facility]) Anxiety Anxiety state, unspecified Dependence on renal dialysis Renal dialysis status Pure hypercholesterolemia Pure hypercholesterolemia Long-term insulin use ([facility]) Hx of amputation of lesser toe, left ([facility]) Class 3 severe obesity due to excess calories with serious comorbidity and body mass index (BMI) of 40.0 to 44.9 in adult ([facility]) Inguinal adenopathy Enlargement of lymph nodes Bilious vomiting with nausea- Primary Type 2 diabetes mellitus with peripheral neuropathy ([facility]) 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 ([facility])- Primary Type 2 diabetes mellitus with peripheral neuropathy ([facility]) Obstructive sleep apnea syndrome Obstructive [...] edema, with long-term current use of insulin ([facility]) Class 3 severe obesity due to excess calories with serious comorbidity and body mass index (BMI) of 40.0 to 44.9 in adult ([facility]) Chronic kidney disease with end stage renal disease on dialysis due to type 2 diabetes mellitus (HCC) Anxiety Anxiety state, unspecified Dependence on renal dialysis Renal dialysis status Pure hypercholesterolemia Pure hypercholesterolemia Long-term insulin use (HCC) Hx of amputation of lesser toe, left ([facility]) 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 He is in preparation for peritoneal dialysis [...] protein. The patient was admitted to the [facility] floor for further evaluation and treatment [...] % (Auto) 12.4 % (.) 11/04/22 15:11 [place] % (Auto) 9.0 % (.) 11/04/22 15:11 Eos % (Auto) 2.7 % (.) 11/04/22 15:11 Baso % (Auto) 1.1 % (.) 11/04/22 15:11 Nucleat RBC Rel Count 0.0 /100 WBC (0-0.5) 11/04/22 15:11 Neut # (Auto) 9.1 x10E3/uL (1.8-7.7) H 11/04/22 15:11 Lymph # (Auto) 1.5 x10E3/uL (1.00-4.8) 11/04/22 15:11 [place] # (Auto) 1.1 x10E3/uL (0.0-0.8) H 11/04/22 [...] pH 5.5 (5.0-9.0) 11/04/22 14:04 Ur Specific [place] 1.013 (1.001-1.030) 11/04/22 14:04 Urine Protein 300 [...] 11/04/22 14:04 Documented By: Chintan Brewster DO 03/01/23 20 07 Signed By: <Electronically signed by Chintan Brewster DO> 11/04/222010 [facility] Work Phone: History and physical note Author Buddy Murguia [facility] November 20, 2023 10:57pm Note Date/Time November 20, 2023 10: 38pm [facility] ENTER [address] [place] [address] Hospitalist H&P Signed Patient: Evans Forte MR#: [id number] : 1970 Acct:[id number] Age/Sex: 53 / M Adm Date: 4 Loc: Room: [address] [place] [address] Type: ADM IN Attending Dr: Buddy Murguia DO Copies to: DO Buddy Dhillon DO~ HPI DATE OF EXAMINATION: 11/20/23 CHIEF COMPLAINT: nauseas HISTORY OF PRESENT ILLNESS: Mr Forte is a 53-year-old male who with a past medical history of hypertension, hyperlipidemia, ESRD on dialysis T-, diabetic and insulin-dependent, GUSTAVO, and neuropathy who [...] noted below or in HPI [facility] Medical History (Updated 11/20/23 @ 22:54 by [...] 2 Surgical History History of cardiac catheter[place] [facility] History of orthopedic surgery right [...] 19:00 Lymph % (Auto) N/A 11/20/23 19:00 [place] % (Auto) N/A 11/20/23 19:00 Eos % (Auto) N/A 11/20/23 19:00 Baso % (Auto) N/A 11/20/23 19:00 Nucleat RBC Rel Count N/A 11/20/23 19:00 Neut # (Auto) N/A 11/20/23 19:00 Lymph # (Auto) N/A 11/20/23 19:00 [place] # (Auto) N/A 11/20/23 19:00 Eos # [...] By: <Electronically signed by Buddy Murguia, > 11/20/231 [facility] Work Phone: Hisdhqo general Narrative - Reported* Type Description Date [...] above Hospitalization History INFECTION IN LEFT FOOT Pin or Peg Other Hishzpb general Narrative - Reported* Type Description Date Medical History ANEMIA Medical History STAGE 5 CHRONIC KIDN EY DISEASAE; UNDERGOING WORK UP FOR TRANSPLANT AT [facility] 2022 Medical History HYPERTENSION Medical History HYPERLIPIDEMIA Medical History HYPOTHYROIDISM Medical History PANCREATITIS X2 Medical History 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 Surgical History HEART CATH 09/2018 Surgical History Right foot surgery 12/2018 Surgical History Left foot surgery 2018 Hospitalization History WOUND ON LEG 02/07/17 Hospitalization History see above Hospitalization History INFECTION IN LEFT FOOT Pin or Peg Other history general Narrative - Reported* Type Description Date Medical History ANEMIA Medical History STAGE 5 CHRONIC KIDN EY DISEASAE; UNDERGOING WORK UP FOR TRANSPLANT AT [facility] 2022 Medical History HYPERTENSION Medical History [...] above Hospitalization History INFECTION IN LEFT FOOT Pin or Peg Other Hospital Discharge instructions Additional Instructions Call your primary doctor later today for follow-up appointment next week You can take trazodone to help you with your sleep as needed, use the Ativan only as needed for anxiety [facility] worsening [facility] Hospital Discharge instructions Additional Instructions Bananas, rice, applesauce, toast to formed stool Follow-up with nephrology as planned on Wednesday Here if you develop any chest pain, shortness of breath, fevers, chills or any other concerns Trazodone to help you sleep as needed Zofran for nausea as needed Monitor your blood sugars[facility] Work Phone: Hospital Discharge instructionsAmbulatory Orders* DME [...] a prescription was provided. follow with your raw cheese worker for training on peritoneal dialysis Follow-up with Dr. High in the office in 1 [facility] Work Phone: Hospital Discharge instructions Additional Instructions [...] first post-op visit, call the office at [phone] anytime. We have an answering service which will contact the doctor at anytime. -[facility]: Hospital Discharge instructions Additional Instructions [...] first post-op visit, call the office at [phone] anytime. We have an answering service which will contact the doctor at anytime. -[facility] Hospital Discharge instructions Additional Instructions If your symptoms return/worsen or you develop any further concerns or symptoms please see your doctor or return to the emergency department immediately.[facility] Work Phone: Hospital Discharge instructions Additional Instructions Follow-up with your primary care doctor Return to ED for present symptoms or [facility] Work Phone: Hospital Discharge instructions Additional Instructions [...] sure you are taking medications as prescribed. [facility] Work Phone: Hospital Discharge instructions Additional Instructions Call pain management tomorrow for additional refills Return to ER as needed[facility] Work [facility]: Hospital Discharge instructions Additional Instructions Recommend follow-up with pain management or family doctor for further evaluation of your chronic pain.[facility] Work Phone: InstructionsNot on filedocumented in this encounter [facility] Author Chintan Brewster [facility] November 05, 2022 3:55pm Note Date/Time November 05, 2022 3:55 pm [facility] ENTER [address] [place] [address] Hospitalist Progress Note Signed Patient: Evans Forte MR#: [id number] : 1970 Acct:[id number] Age/Sex: 52 / M Adm Date: 3 Loc: 4P Room: 5T5520-3 Type: ADM IN Attending Dr: Chintan Brewster [...] Tablet.Dr PO 11/05/23 08:59 324 mg DAILY [facility] Administration Folic Acid 1 tab 11/05/22 09:00 11/05/22 08:48 Cyanocobalamin/Fa/Pyridoxine 1 Tab Tablet PO 11/05/23 08:59 1 tab DAILY REYNOLD Administration Furosemide 80 mg 11/06/22 08:00 Furosemide 80 Mg Tablet PO 11/06/23 07:59 DAILY.8A [facility] Heparin Sodium (Porcine) 5,000 unit 11/05/22 14:00 [...] Unit/3 Ml Insuln.Pen SUBCUT 11/05/23 16:59 DAILY@1700 [facility] Insulin Human Regular 70 unit 11/05/22 06:00 11/05/22 08:05 Insulin Regular U-500, Human 1,500 Unit/3 Ml Insuln.Pen SUBCUT 11/05/23 05:59 70 unit DAILY@0600 [facility] Administration Labetalol HCl 10 mg 11/04/22 16:32 [...] <Electronically signed by Chintan Brewster DO> 11/05/22 155 [facility] Work Phone: Progress note Author Yocasta Villalba [facility] November 06, 2022 2:57pm Note Date/Time November 06, 2022 2:57 pm [facility] ENTER [address] [place], [place] [id number] Nephrology Progress Note Signed Patient: Evans Forte MR#: [id number] : 1970 Acct:[id number] Age/Sex: 52 / M Adm Date: 3 Loc: Room: [address] [place] [address] Type: ADM IN Attending Dr: Chintan Brewster DO Copies to: ~ Date of Service: 11/06/2022 Subjective Subjective Narrative: This is a 52-year-old male patient with a past sickle history of chronic kidney disease stage V from diabetic nephropathy, hypertension, morbid obesity, anemia of renal disease, neuropathy. 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 Waters for hyperkalemia with potassium 5.9 [...] 500 Mg Tablet) 500 mg PO DAILY [facility] Stop: 11/05/23 08:59 Last Admin: 11/06/22 10:32 Dose: Not Given Atorvastatin Calcium (Atorvastatin 20 Mg Tablet) 20 mg PO DAILY [facility] Stop: 11/05/23 08:59 Last Admin: 11/06/22 10:32 Dose: Not Given Carvedilol (Carvedilol 25 Mg Tablet) 25 mg PO BID [facility] Stop: 11/04/23 20:59 Last Admin: 11/06/22 09:05 Dose: 25 mg Docusate Sodium (Docusate 100 Mg Capsule) 100 mg PO BID [facility] Stop: 11/06/23 20:59 Droperidol (Droperidol 5 Mg/2 Ml Vial) 1.25 mg IV-PUSH ONCE PRN PRN Reason: Nausea And Vomiting Stop: 11/06/22 16:28 Emollient Ointment (Petrolatum,White 99 Gm Oint...G.) 1 applic TOPICAL DAILY [facility] Stop: 11/05/23 09:59 Last Admin: 11/06/22 09:05 Dose: 1 applic Fenofibrate (Fenofibrate Nanocrystallized 145 Mg Tablet) 145 mg PO DAILY [facility] Stop: 11/05/23 08:59 Last Admin: 11/05/22 08:48 Dose: 145 mg Ferrous Sulfate (Ferrous Sulfate 324 Mg Tablet.Dr) 324 mg PO DAILY [facility] Stop: 11/05/23 08:59 Last Admin: 11/06/22 10:32 Dose: Not Given Folic Acid (Cyanocobalamin/Fa/Pyridoxine 1 Tab Tablet) 1 tab PO DAILY [facility] Stop: 11/05/23 08:59 Last Admin: 11/06/22 10:32 Dose: Not Given Heparin Sodium (Porcine) (Heparin 5,000 Unit/Ml Vial) 5,000 unit SUBCUT Q8HR [facility] Stop: 11/05/23 13:59 Last Admin: 11/06/22 14:15 Dose: Not Given Hydralazine HCl (Hydralazine 20 Mg/Ml Vial) 10 mg IV-PUSH Q4H PRN PRN Reason: if SBP > 185 Stop: 11/04/23 23:30 Last Admin: 11/04/22 23:40 Dose: 10 mg Hydralazine HCl (Hydralazine 50 Mg Tablet) 50 mg PO TID [facility] Stop: 11/05/23 05:59 Last Admin: 11/06/22 10:32 Dose: Not Given Sodium Chloride (0.9% Sodium Chloride 500 Ml) 500 mls @ 20 mls/hr IV ONCE ONE Stop: 11/07/22 10:00 Last Admin: 11/06/22 10:37 Dose: 20 mls/hr Ferric Sodium Gluconate Complex 250 mg/ Sodium Chloride 270 mls @ 135 mls/hr IVQAM [facility] Stop: 11/09/22 09:01 Last Infusion: 11/06/22 13:03 Dose: Infused Insulin Human Regular (Insulin Regular U-500, Human 1,500 Unit/3 Ml Insuln.Pen) 45 unit SUBCUT DAILY@1700 [facility] Stop: 11/05/23 16:59 Last Admin: 11/05/22 18:24 Dose: 45 unit Insulin Human Regular (Insulin Regular U-500, Human 1,500 Unit/3 Ml Insuln.Pen) 70 unit SUBCUT DAILY@0600 [facility] Stop: 11/05/23 05:59 Last Admin: 11/06/22 06:25 [...] 100 Mcg Tablet) 100 mcg PO DAILY@0630 [facility] Stop: 11/05/23 06:29 Last Admin: 11/06/22 06:38 Dose: Not Given Lidocaine HCl (Lidocaine 1% 20 Ml Vial) 0.1 ml INTRADERMA PREOP PRN PRN Reason: Venipuncture Stop: 11/06/22 15:01 Lidocaine HCl (Lidocaine 1% 20 Ml Vial) 0.1 ml INTRADERMA PREOP PRN PRN Reason: Venipuncture Stop: 11/06/22 18:34 Nifedipine (Nifedipine Er.24hr 90 Mg Tab.Er.24) 90 mg PO DAILY [facility] Stop: 11/05/23 08:59 Last Admin: 11/06/22 10:32 Dose: Not Given Ondansetron HCl (Ondansetron 4 Mg/2 Ml Vial) 4 mg IV-PUSH ONCE PRN PRN Reason: Nausea/Vomiting Stop: 11/06/22 16:28 Pregabalin (Pregabalin 50 Mg Capsule) 50 mg PO DAILY [facility] Stop: 05/04/23 08:59 Last Admin: 11/06/22 10:32 Dose: Not Given Sodium Bicarbonate (Sodium Bicarbonate 650 Mg Tablet) 1,300 mg PO BID [facility] Stop: 11/05/23 10:29 Last Admin: 11/06/22 10:32 Dose: Not Given Sodium Chloride (Sodium Chloride 0.9 % 10 Ml Syringe) 0 ml IV-PUSH PRN PRN PRN Reason: Flush Stop: 11/04/23 13:53 Sodium Zirconium Cyclosilicate 10 gm/ Sodium Zirconium Cyclosilicate 5 gm 15 gmPO DAILY [facility] Stop: 11/06/23 10:29 Vitamin A (Vitamin A 3,000 Mcg (10,000 Units) Capsule) 3,000 mcg PO DAILY [facility] Stop: 11/05/23 08:59 Last Admin: 11/06/22 10:32 [...] a.m. Documented By: Yocasta Villalba MD 11/06/22 9723 Signed By: <Electronically signed by Yocasta Villalba MD> 11/06/22 6093 [facility] Work Phone: Progress note Author Chintan Brewster [facility] November 06, 2022 5:26pm Note Date/Time November 06, 2022 5:26 pm [facility] ENTER [address] [place] [address] Hospitalist Progress Note Signed Patient: Evans Forte MR#: [id number] : 1970 Acct:[id number] Age/Sex: 52 / M Adm Date: 3 Loc: Room: [address] [place] [address] Type: ADM IN Attending Dr: Chintan Brewster [...] Tablet PO 11/05/23 08:59 Not Given DAILY [facility] Heparin Sodium (Porcine) 5,000 unit 11/05/22 14:00 [...] mg/ Sodium IV 11/09/22 09:01 Infused Chloride [facility] Infusion Insulin Human Regular 45 unit 11/05/22 17:00 11/06/22 17:13 Insulin Regular U-500, Human 1,500 Unit/3 Ml Insuln.Pen SUBCUT 11/05/23 16:59 45 unit DAILY@1700 [facility] Administration Insulin Human Regular 70 unit 11/05/22 06:00 11/06/22 06:25 Insulin Regular U-500, Human 1,500 Unit/3 Ml Insuln.Pen SUBCUT 11/05/23 05:59 Not Given DAILY@0600 [facility] Insulin Human Regular 0 unit 11/06/22 12:34 [...] signed by Chintan Brewster DO> 11/06/22 1726 [facility] Work Phone: Progress note Author Masoud Maria [facility] November 07, 2022 8:40am Note Date/Time November 07, 2022 8:40 am [facility] ENTER [address] [place] [address] General Surgery Progress Note Signed Patient: Evans Forte MR#: [id number] : 1970 Acct:[id number] Age/Sex: 52 / M Adm Date: 3 Loc: Room: [address] [place] [address] Type: ADM IN Attending Dr: Chintan Brewster [...] 500 Mg Tablet) 500 mg PO DAILY [facility] Stop: 11/05/23 08:59 Last Admin: 11/06/22 10:32 Dose: Not Given Atorvastatin Calcium (Atorvastatin 20 Mg Tablet) 20 mg PO DAILY [facility] Stop: 11/05/23 08:59 Last Admin: 11/06/22 10:32 Dose: Not Given Carvedilol (Carvedilol 25 Mg Tablet) 25 mg PO BID [facility] Stop: 11/04/23 20:59 Last Admin: 11/06/22 21:32 Dose: 25 mg Docusate Sodium (Docusate 100 Mg Capsule) 100 mg PO BID [facility] Stop: 11/06/23 20:59 Last Admin: 11/06/22 21:32 Dose: Not Given Emollient Ointment (Petrolatum,White 99 Gm Oint...G.) 1 applic TOPICAL DAILY [facility] Stop: 11/05/23 09:59 Last Admin: 11/07/22 05:55 Dose: 1 applic Fenofibrate (Fenofibrate Nanocrystallized 145 Mg Tablet) 145 mg PO DAILY [facility] Stop: 11/05/23 08:59 Last Admin: 11/05/22 08:48 Dose: 145 mg Ferrous Sulfate (Ferrous Sulfate 324 Mg Tablet.Dr) 324 mg PO DAILY [facility] Stop: 11/05/23 08:59 Last Admin: 11/06/22 10:32 Dose: Not Given Folic Acid (Cyanocobalamin/Fa/Pyridoxine 1 Tab Tablet) 1 tab PO DAILY [facility] Stop: 11/05/23 08:59 Last Admin: 11/06/22 10:32 Dose: Not Given Heparin Sodium (Porcine) (Heparin 5,000 Unit/Ml Vial) 5,000 unit SUBCUT Q8HR [facility] Stop: 11/05/23 13:59 Last Admin: 11/07/22 05:53 Dose: 5,000 unit Hydralazine HCl (Hydralazine 20 Mg/Ml Vial) 10 mg IV-PUSH Q4H PRN PRN Reason: if SBP > 185 Stop: 11/04/23 23:30 Last Admin: 11/04/22 23:40 Dose: 10 mg Hydralazine HCl (Hydralazine 50 Mg Tablet) 50 mg PO TID [facility] Stop: 11/05/23 05:59 Last Admin: 11/06/22 21:32 Dose: 50 mg Sodium Chloride (0.9% Sodium Chloride 500 Ml) 500 mls @ 20 mls/hr IV ONCE ONE Stop: 11/07/22 10:00 Last Admin: 11/06/22 10:37 Dose: 20 mls/hr Ferric Sodium Gluconate Complex 250 mg/ Sodium Chloride 270 mls @ 135 mls/hr IVQAM [facility] Stop: 11/09/22 09:01 Last Infusion: 11/06/22 13:03 Dose: Infused Insulin Human Regular (Insulin Regular U-500, Human 1,500 Unit/3 Ml Insuln.Pen) 45 unit SUBCUT DAILY@1700 [facility] Stop: 11/05/23 16:59 Last Admin: 11/06/22 17:13 Dose: 45 unit Insulin Human Regular (Insulin Regular U-500, Human 1,500 Unit/3 Ml Insuln.Pen) 70 unit SUBCUT DAILY@0600 [facility] Stop: 11/05/23 05:59 Last Admin: 11/07/22 05:54 Dose: 70 unit Labetalol HCl (Labetalol 100 Mg/20 Ml Vial) 10 mg IV-PUSH Q10M PRN PRN Reason: Hypertension Stop: 11/04/23 16:31 Last Admin: 11/04/22 21:41 Dose: 10 mg Levothyroxine Sodium (Levothyroxine 100 Mcg Tablet) 100 mcg PO DAILY@0630 [facility] Stop: 11/05/23 06:29 Last Admin: 11/07/22 05:55 Dose: 100 mcg Lorazepam (Lorazepam 2 Mg/Ml Vial) 0.5 mg IV-PUSH Q4H PRN PRN Reason: Agitation Stop: 05/05/23 16:50 Last Admin: 11/06/22 17:11 Dose: 0.5 mg Nifedipine (Nifedipine Er.24hr 90 Mg Tab.Er.24) 90 mg PO DAILY [facility] Stop: 11/05/23 08:59 Last Admin: 11/06/22 10:32 Dose: Not Given Pregabalin (Pregabalin 50 Mg Capsule) 50 mg PO DAILY [facility] Stop: 05/04/23 08:59 Last Admin: 11/06/22 10:32 Dose: Not Given Sodium Bicarbonate (Sodium Bicarbonate 650 Mg Tablet) 1,300 mg PO BID [facility] Stop: 11/05/23 10:29 Last Admin: 11/06/22 21:32 [...] (1,000 Units) Tablet) 50 mcg PO DAILY [facility] Stop: 11/05/23 08:59 Last Admin: 11/06/22 10:32 Dose: Not Given Zinc Gluconate (Zinc Gluconate 50 Mg Tablet) 50 mg PO DAILY [facility] Stop: 11/05/23 08:59 Last Admin: 11/06/22 10:32 [...] % (Auto) 87.5, Lymph % (Auto) 5.8, [place] % (Auto) 6.5, Eos % (Auto)0.1, Baso % (Auto) 0.1, Nucleat RBC Rel Count 0.1, Neut # (Auto) 10.9 H, Lymph #(Auto) 0.7 L, [place] # (Auto) 0.8, Eos # (Auto) 0.0, [...] % (Auto) 74.7, Lymph % (Auto) 13.3, [place] % (Auto) 9.0, Eos % (Auto) 2.5, Baso % (Auto) 0.5, Nucleat RBC Rel Count 0.1, Neut # (Auto) 10.0 H, Lymph # (Auto) 1.8, [place] # (Auto) 1.2 H, Eos # (Auto) [...] signed by Masoud Maria DO> 11/07/22 0840 [facility] Work Phone: Progress note Author Yocasta Villalba [facility] November 07, 2022 2:43pm Note Date/Time November 07, 2022 2:43 pm [facility] ENTER [address] [place] [address] Nephrology Progress Note Signed Patient: Evans Forte MR#: [id number] : 1970 Acct:[id number] Age/Sex: 52 / M Adm Date: 3 Loc: 4 Room: [address] [place] [address] Type: ADM IN Attending Dr: Chintan Brewster DO Copies to: ~ Date of Service: 11/07/2022 Subjective Subjective Narrative: This is a 52-year-old male patient with a past sickle history of chronic kidney disease stage V from diabetic nephropathy, hypertension, morbid obesity, anemia of renal disease, neuropathy. 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 Waters for hyperkalemia with potassium 5.9 [...] 145 Mg Tablet) 145 mg PO DAILY [facility] Stop: 11/05/23 08:59 Last Admin: 11/07/22 08:37 Dose: 145 mg Ferrous Sulfate (Ferrous Sulfate 324 Mg Tablet.Dr) 324 mg PO DAILY [facility] Stop: 11/05/23 08:59 Last Admin: 11/07/22 08:38 Dose: 324 mg Folic Acid (Cyanocobalamin/Fa/Pyridoxine 1 Tab Tablet) 1 tab PO DAILY [facility] Stop: 11/05/23 08:59 Last Admin: 11/07/22 08:38 Dose: 1 tab Furosemide (Furosemide 40 Mg/4 Ml Vial) 40 mg IV-PUSH DAILY.8A [facility] Stop: 11/07/23 09:54 Last Admin: 11/07/22 11:23 Dose: 40 mg Heparin Sodium (Porcine) (Heparin 5,000 Unit/Ml Vial) 5,000 unit SUBCUT Q8HR [facility] Stop: 11/05/23 13:59 Last Admin: 11/07/22 13:45 Dose: 5,000 unit Hydralazine HCl (Hydralazine 20 Mg/Ml Vial) 10 mg IV-PUSH Q4H PRN PRN Reason: if SBP > 185 Stop: 11/04/23 23:30 Last Admin: 11/07/22 12:13 Dose: 10 mg Hydralazine HCl (Hydralazine 50 Mg Tablet) 100 mg PO TID [facility] Stop: 11/07/23 13:59 Last Admin: 11/07/22 13:44 Dose: 100 mg Ferric Sodium Gluconate Complex 250 mg/ Sodium Chloride 270 mls @ 135 mls/hr IVQAM [facility] Stop: 11/09/22 09:01 Last Admin: 11/07/22 09:49 Dose: 135 mls/hr Insulin Human Regular (Insulin Regular U-500, Human 1,500 Unit/3 Ml Insuln.Pen) 45 unit SUBCUT DAILY@1700 [facility] Stop: 11/05/23 16:59 Last Admin: 11/06/22 17:13 Dose: 45 unit Insulin Human Regular (Insulin Regular U-500, Human 1,500 Unit/3 Ml Insuln.Pen) 70 unit SUBCUT DAILY@0600 [facility] Stop: 11/05/23 05:59 Last Admin: 11/07/22 05:54 [...] (1,000 Units) Tablet) 50 mcg PO DAILY [facility] Stop: 11/05/23 08:59 Last Admin: 11/07/22 08:37 [...] signed by Yocasta Villalba MD> 11/07/22 1443 [facility] Work Phone: Progress note Author Arnol Calloway [facility] November 21, 2023 5:52pm Note Date/Time November 21, 2023 11: 07am [facility] ENTER [address] [place] [address] Hospitalist Progress Note Signed Patient: Evans Forte MR#: [id number] : 1970 Acct:[id number] Age/Sex: 53 / M Adm Date: 4 Loc: Room: [address] [place] [address] Type: ADM IN Attending Dr: Arnol Calloway [...] as neuropathy. Follows with Dr. Fonseca/podiatry in [place] but indicates has not had vascular studies [...] TRANSDERML 11/20/24 08:59 Not Given Packet DAILY [facility] Tirzepatide [ 5 mg 11/30/23 09:00 Mounjaro] 5 Mg/0.5 SUBCUT 11/29/24 08:59 Ml Pen Injector Tu@0900 [facility] Ondansetron HCl 4 mg 11/20/23 21:03 Ondansetron [...] signed by Arnol Calloway MD> 11/21/23 1752 [facility] Work Phone: Progress note Author Amy Escudero [facility] November 22, 2023 12:45pm Note Date/Time November 22, 2023 10: 37am [facility] ENTER [address] [place] [address] Hospitalist Progress Note Signed Patient: Evans Forte MR#: [id number] : 1970 Acct:[id number] Age/Sex: 53 / M Adm Date: 4 Loc: Room: [address] [place] [address] Type: ADM IN Attending Dr: Amy Escudero [...] Insuln.Pen SUBCUT 11/20/24 16:29 Not Given ACHS [facility] Protocol Insulin Human Regular 50 unit 11/21/23 [...] SUBCUT 11/29/24 08:59 Ml Pen Injector Tu@0900 [facility] Ondansetron HCl 4 mg 11/20/23 21:03 Ondansetron [...] signed by Amy Escudero DO> 11/22/23 1245 [facility] Work Phone: Progress note Author Ada Uriostegui [facility] November 22, 2023 12:53pm Note Date/Time November 22, 2023 12: 53pm [facility] ENTER [address] [place] [address] Nephrology Progress Note Signed Patient: Evans Forte MR#: [id number] : 1970 Acct:[id number] Age/Sex: 53 / M Adm Date: 4 Loc: Room: [address] [place] [address] Type: ADM IN Attending Dr: Amy Escudero DO Copies to: ~ Date of Service: 11/22/2023 Subjective Subjective Narrative: This is a 53-year-old male patient with a past medical history of hypertension, hyperlipidemia, end-stage renal disease on TTS hemodialysis schedule at [facility], insulin-dependent diabetes mellitus, obstructive sleep apnea, [...] Skin: No rashes , warm to touch SENIOR TELLER: Awake,Alert, following simple command Musculoskeletal: No joint [...] 1 Mg Tablet) 1 mg PO QAM [facility] Stop: 11/20/24 08:59 Last Admin: 11/22/23 08:14 Dose: 1 mg Atorvastatin Calcium (Atorvastatin 20 Mg Tablet) 20 mg PO QAM [facility] Stop: 11/20/24 08:59 Last Admin: 11/22/23 08:13 Dose: 20 mg Calcitriol (Calcitriol 0.25 Mcg Capsule) 0.25 mcg PO TuThSa@0900 [facility] Stop: 11/22/24 08:59 Calcium Acetate (Calcium Acetate 667 Mg Capsule) 2,668 mg PO AC [facility] Stop: 11/20/24 07:29 Last Admin: 11/22/23 11:21 Dose: 2,668 mg Carvedilol (Carvedilol 6.25 Mg Tablet) 6.25 mg PO BID [facility] Stop: 11/21/24 12:19 Cyanocobalamin (Cyanocobalamin 1,000 Mcg Tablet) 1,000 mcg PO DAILY [facility] Stop: 11/20/24 08:59 Last Admin: 11/22/23 08:13 Dose: 1,000 mcg Heparin Sodium (Porcine) (Heparin 5,000 Unit/Ml Vial) 5,000 unit SUBCUT Q12HR [facility] Stop: 11/20/24 08:59 Last Admin: 11/22/23 08:14 Dose: 5,000 unit Linezolid (Zyvox) 600 mg in 300 mls @ 300 mls/hr IV Q12H [facility] Last Admin: 11/22/23 08:58 Dose: 300 mls/hr Ceftriaxone Sodium (Rocephin) 2 gm in 50 mls @ 100 mls/hr IV Q24H [facility] Last Admin: 11/21/23 19:41 Dose: 100 mls/hr Insulin Aspart (Insulin Aspart 300 Units/3 Ml Insuln.Pen) 0 units SUBCUT ACHS [facility]; Protocol Stop: 11/20/24 16:29 Last Admin: 11/22/23 11:22 Dose: 2 units Insulin Human Regular (Insulin Regular U-500, Human 1,500 Unit/3 Ml Insuln.Pen) 50 unit SUBCUT BID [facility] Stop: 11/20/24 08:59 Last Admin: 11/22/23 08:16 Dose: 50 unit Levothyroxine Sodium (Levothyroxine 100 Mcg Tablet) 100 mcg PO DAILY.0630 [facility] Stop: 11/20/24 06:29 Last Admin: 11/22/23 05:29 [...] Gel In Packet 1 packet TRANSDERML DAILY [facility] Stop: 11/20/24 08:59 Last Admin: 11/22/23 11:21 Dose: Not Given Tirzepatide [ Mounjaro] 5 Mg/0.5 Ml Pen Injector 5 mg SUBCUT Tu@0900 [facility] Stop: 11/29/24 08:59 Ondansetron HCl (Ondansetron 4 [...] Taqueria Reese M.D.11/21/2023 4:39 PM Dictation Location: [address] 11/22/23 07:00 IMPRESSION: NO HEMODYNAMICALLY SIGNIFICANT PERIPHERAL VASCULAR OCCLUSIVE DISEASE AT REST IN EITHER LOWER EXTREMITY. Impression dictated by: Ramirez Jean M.D.11/22/2023 10:09 AM Dictation Location: [place] [address] Any impression(s) listed above is documentation that [...] diabetic nephropathy. Patient has been going to [facility] on TTS for hemodialysis. Last hemodialysis [...] needed Documented By: Ada Uriostegui MD 11/22/23 6030 Signed By: <Electronically signed by Ada Uriostegui MD> 11/22/23 9863 [facility] Work Phone: Progress note Author Ada Uriostegui [facility] November 23, 2023 12:09pm Note Date/Time November 23, 2023 10: 34am [facility] ENTER [address] [place] [address] Nephrology Progress Note Signed Patient: Evans Forte MR#: [id number] : 1970 Acct:[id number] Age/Sex: 53 / M Adm Date: 4 Loc: 3T Room: 4B6068-0 Type: ADM IN Attending Dr: Amy Escudero DO Copies to: ~ Date of Service: 11/23/2023 Subjective Subjective Narrative: This is a 53-year-old male patient with a past medical history of hypertension, hyperlipidemia, end-stage renal disease on TTS hemodialysis schedule at [facility], insulin-dependent diabetes mellitus, obstructive sleep apnea, [...] Skin: No rashes , warm to touch SENIOR TELLER: Awake,Alert, following simple command Musculoskeletal: No joint [...] (Anastrozole 1 Mg Tablet) [facility] Stop: 11/20/24 08:59 Last Admin: 11/22/23 08:14 Dose: 1 mg Atorvastatin Calcium (Atorvastatin 20 Mg Tablet) 20 mg PO QAM [facility] Stop: 11/20/24 08:59 Last Admin: 11/22/23 08:13 Dose: 20 mg Calcitriol (Calcitriol 0.25 Mcg Capsule) 0.25 mcg PO TuThSa@0900 [facility] Stop: 11/22/24 08:59 Calcium Acetate (Calcium Acetate 667 Mg Capsule) 2,668 mg PO AC [facility] Stop: 11/20/24 07:29 Last Admin: 11/23/23 08:52 Dose: Not Given Carvedilol (Carvedilol 6.25 Mg Tablet) 6.25 mg PO BID [facility] Stop: 11/21/24 13:29 Last Admin: 11/23/23 08:53 Dose: Not Given Cyanocobalamin (Cyanocobalamin 1,000 Mcg Tablet) 1,000 mcg PO DAILY [facility] Stop: 11/20/24 08:59 Last Admin: 11/22/23 08:13 Dose: 1,000 mcg Darbepoetin Zechariah (Darbepoetin Zechariah In Polysorbat 25 Mcg/Ml Vial) 25 mcg IV-PUSHTu@0930 [facility]; Protocol Stop: 11/22/24 09:29 Furosemide (Furosemide 80 Mg Tablet) 80 mg PO BID@0800,1600 [facility] Stop: 11/21/24 15:59 Last Admin: 11/23/23 08:52 Dose: Not Given Heparin Sodium (Porcine) (Heparin 5,000 Unit/Ml Vial) 5,000 unit SUBCUT Q12HR [facility] Stop: 11/20/24 08:59 Last Admin: 11/23/23 08:53 [...] 300 mls @ 300 mls/hr IV Q12H [facility] Last Admin: 11/22/23 21:02 Dose: 300 mls/hr Ceftriaxone Sodium (Rocephin) 2 gm in 50 mls @ 100 mls/hr IV Q24H [facility] Last Admin: 11/22/23 19:25 Dose: 100 mls/hr Sodium Chloride (0.9% Sodium Chloride 1,000 Ml) 1,000 mls @ 0 mls/hr MISCELLANE.Q0M PRN PRN Reason: Dialysis Stop: 11/22/24 09:19 Last Infusion: 11/23/23 09:43 Dose: Infused Insulin Aspart (Insulin Aspart 300 Units/3 Ml Insuln.Pen) 0 units SUBCUT ACHS [facility]; Protocol Stop: 11/20/24 16:29 Last Admin: 11/23/23 08:52 Dose: Not Given Insulin Human Regular (Insulin Regular U-500, Human 1,500 Unit/3 Ml Insuln.Pen) 50 unit SUBCUT BID [facility] Stop: 11/20/24 08:59 Last Admin: 11/23/23 08:53 Dose: Not Given Levothyroxine Sodium (Levothyroxine 100 Mcg Tablet) 100 mcg PO DAILY.0630 [facility] Stop: 11/20/24 06:29 Last Admin: 11/23/23 05:38 [...] Gel In Packet 1 packet TRANSDERML DAILY [facility] Stop: 11/20/24 08:59 Last Admin: 11/23/23 08:53 Dose: Not Given Tirzepatide [ Mounjaro] 5 Mg/0.5 Ml Pen Injector 5 mg SUBCUT Tu@0900 [facility] Stop: 11/29/24 08:59 Ondansetron HCl (Ondansetron 4 [...] diabetic nephropathy. Patient has been going to [facility] on TTS for hemodialysis. Last hemodialysis [...] signed by Ada Uriostegui MD> 11/23/23 1209 [facility] Work Phone: Progress note Author Chintan Hernández [facility] November 23, 2023 10:54am Note Date/Time November 23, 2023 10: 54am [facility] ENTER [address] [place] [address] Infect. Disease Progress Note Signed Patient: Evans Forte MR#: [id number] : 1970 Acct:[id number] Age/Sex: 53 / M Adm Date: 03/16/2 4 Loc: 3T Room: 4Z6038-1 Type: ADM IN Attending Dr: Amy Escudero [...] 1 Mg Tablet) 1 mg PO QAM [facility] Stop: 11/20/24 08:59 Last Admin: 11/22/23 08:14 Dose: 1 mg Atorvastatin Calcium (Atorvastatin 20 Mg Tablet) 20 mg PO QAM [facility] Stop: 11/20/24 08:59 Last Admin: 11/22/23 08:13 Dose: 20 mg Calcitriol (Calcitriol 0.25 Mcg Capsule) 0.25 mcg PO TuThSa@0900 [facility] Stop: 11/22/24 08:59 Calcium Acetate (Calcium Acetate 667 Mg Capsule) 2,668 mg PO AC [facility] Stop: 11/20/24 07:29 Last Admin: 11/23/23 08:52 Dose: Not Given Carvedilol (Carvedilol 6.25 Mg Tablet) 6.25 mg PO BID [facility] Stop: 11/21/24 13:29 Last Admin: 11/23/23 08:53 Dose: Not Given Cyanocobalamin (Cyanocobalamin 1,000 Mcg Tablet) 1,000 mcg PO DAILY [facility] Stop: 11/20/24 08:59 Last Admin: 11/22/23 08:13 Dose: 1,000 mcg Darbepoetin Zechariah (Darbepoetin Zechariah In Polysorbat 25 Mcg/Ml Vial) 25 mcg IV-PUSHTu@0930 [facility]; Protocol Stop: 11/22/24 09:29 Furosemide (Furosemide 80 Mg Tablet) 80 mg PO BID@0800,1600 [facility] Stop: 11/21/24 15:59 Last Admin: 11/23/23 08:52 Dose: Not Given Heparin Sodium (Porcine) (Heparin 5,000 Unit/Ml Vial) 5,000 unit SUBCUT Q12HR [facility] Stop: 11/20/24 08:59 Last Admin: 11/23/23 08:53 [...] 300 mls @ 300 mls/hr IV Q12H [facility] Last Admin: 11/22/23 21:02 Dose: 300 mls/hr Ceftriaxone Sodium (Rocephin) 2 gm in 50 mls @ 100 mls/hr IV Q24H [facility] Last Admin: 11/22/23 19:25 Dose: 100 mls/hr Sodium Chloride (0.9% Sodium Chloride 1,000 Ml) 1,000 mls @ 0 mls/hr MISCELLANE.Q0M PRN PRN Reason: Dialysis Stop: 11/22/24 09:19 Last Infusion: 11/23/23 09:43 Dose: Infused Insulin Aspart (Insulin Aspart 300 Units/3 Ml Insuln.Pen) 0 units SUBCUT ACHS [facility]; Protocol Stop: 11/20/24 16:29 Last Admin: 11/23/23 08:52 Dose: Not Given Insulin Human Regular (Insulin Regular U-500, Human 1,500 Unit/3 Ml Insuln.Pen) 50 unit SUBCUT BID [facility] Stop: 11/20/24 08:59 Last Admin: 11/23/23 08:53 Dose: Not Given Levothyroxine Sodium (Levothyroxine 100 Mcg Tablet) 100 mcg PO DAILY.0630 [facility] Stop: 11/20/24 06:29 Last Admin: 11/23/23 05:38 [...] Gel In Packet 1 packet TRANSDERML DAILY [facility] Stop: 11/20/24 08:59 Last Admin: 11/23/23 08:53 [...] <Electronically signed by MD Chintan Hernández> 11/23/231053 [facility] Work Phone: Progress note Author Amy Escudero [facility] November 24, 2023 1:40pm Note Date/Time November 23, 2023 1:0 3pm [facility] ENTER [address] [place] [address] Hospitalist Progress Note Signed Patient: Evans Forte MR#: [id number] : 1970 Acct:[id number] Age/Sex: 53 / M Adm Date: 4 Loc: 3T Room: [address] [place] [address] Type: DIS IN Attending Dr: Amy Escudero [...] Vial IV-PUSH 11/22/24 09:29 25 mcg Tu@0930 [facility] Administration Protocol Furosemide 80 mg 11/22/23 16:00 11/23/23 08:52 Furosemide 80 Mg Tablet PO 11/21/24 15:59 Not Given BID@0800,1600 [facility] Heparin Sodium (Porcine) 5,000 unit 11/21/23 09:00 11/23/23 08:53 Heparin 5,000 Unit/Ml Vial SUBCUT 11/20/24 08:59 Not Given Q12HR [facility] Heparin Sodium (Porcine) 2,000 unit 11/23/23 09:20 [...] Insuln.Pen SUBCUT 11/20/24 16:29 Not Given ACHS [facility] Protocol Insulin Human Regular 50 unit 11/21/23 [...] [facility] Tirzepatide [ 5 mg 11/30/23 09:00 Mounandrewro] 5 Mg/0.5 SUBCUT 11/29/24 08:59 Ml Pen Injector Tu@0900 [facility] Ondansetron HCl 4 mg 11/20/23 21:03 Ondansetron [...] signed by Amy Escudero DO> 11/24/23 1340 [facility] Work Phone: Progress note Author Gi Mondragon [facility] November 23, 2023 3:53pm Note Date/Time November 23, 2023 3:5 3pm [facility] ENTER [address] [place] [address] Podiatry Progress Note Signed Patient: Evans Forte MR#: [id number] : 1970 Acct:[id number] Age/Sex: 53 / M Adm Date: 4 Loc: Room: [address] [place] [address] Type: ADM IN Attending Dr: Amy Escudero DO Copies to: ~ Subjective Subjective Date of Service: Date of Service: 11/23/2023 Time of Service: 15:51 Narrative: Mr. Forte is a 53 year old male who was admitted due to symptoms of sepsis. Patient has a large ulceration on the bottom of the right great toe and heel. He has been following with a service worker and family. Patient states that the ulcerations [...] large hyperkeratosis. Patient will follow-up with his service worker and family for further wound care. 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 Other Summary Purpose Family History No Family [...] Hypertension Insulin dependent diabetes mellitus Metabolic acidosis [id number] Chief Complaint High BS R Leg Swelling vomiting/low urine output N18.5;E11.22;I12.9;N25.81;D63.1;E80.1;W87.5 abnormal labs, sent by dr CARPENTER Reason for Visit Acute hyperkalemia Acute kidney injury superimposed on CKD Chronic kidney disease CKD (chronic kidney disease) stage 5, GFR less than 15 ml/min Hyperkalemia Hypertension Insulin dependent diabetes mellitus Metabolic acidosis [id number] Chief Complaint DM E11.22 Chief Complaint DM E11.22 SOB Wheezing Chief Complaint E11.22 SOB Wheezing ESRD Reason for Visit [id number] Chief Complaint SOB Wheezing ESRD sob Reason for Visit [id number] Chief Complaint SOB Wheezing ESRD sob N18.6 Reason for Visit [id number] Chief Complaint SOB Wheezing ESRD sob N18.6 Needs Av Access; Vein Mapping Done At F ESRD ESRD, Peritoneal Dialysis Catheter Dysfunction Reason for Visit [id number] Chief Complaint SOB Wheezing ESRD sob N18.6 Needs Av Access; Vein Mapping Done At F ESRD ESRD, Peritoneal Dialysis Catheter Dysfunction ESRD, Peritoneal Dialysis Catheter Dysfunction Reason for Visit [id number] Chief Complaint ESRD sob N18.6 Needs Av Access; Vein Mapping Done At F ESRD ESRD, Peritoneal Dialysis Catheter Dysfunction ESRD, Peritoneal Dialysis Catheter Dysfunction F/U LEFT ARM AVF CREATION abdominal wound fever, low blood pressure: post dialysis Reason for Visit [id number] Dependence on renal dialysis Chief Complaint ESRD [...] Benign hypertension with end-stage renal disease Diabetes [id number] Edema of right lower extremity End stage [...] Benign hypertension with end-stage renal disease Diabetes [id number] Edema of right lower extremity End stage [...] neuropathy February 13, 2025 8:20am Amb Documentation Lacey 17th, 2025 8:27 am f/u and med refill [...] section and content) DATE CREATED AUTHOR 04/03/2020 [facility] DATE CREATED AUTHOR AUTHOR'S ORGANIZ ATION 10/24/2021 [facility] DATE CREATED AUTHOR AUTHOR'S ORGANIZ ATION 05/14/2022 [facility] DATE CREATED AUTHOR AUTHOR'S ORGANIZ ATION 10/10/2022 [facility] DATE CREATED AUTHOR AUTHOR'S ORGANIZ ATION 12/10/2022 [facility] DATE CREATED AUTHOR AUTHOR'S ORGANIZ ATION 12/07/2024 [facility] DATE CREATED AUTHOR AUTHOR'S ORGANIZ ATION 02/06/2025 [facility] DATE CREATED AUTHOR AUTHOR'S ORGANIZ ATION 04/25/2025 [facility] DATE CREATED AUTHOR AUTHOR'S ORGANIZ ATION 04/28/2025 [facility] DATE CREATED AUTHOR AUTHOR'S ORGANIZ ATION 05/12/2025 [facility] DATE CREATED AUTHOR AUTHOR'S ORGANIZ ATION 05/13/2025 [facility] DATE CREATED AUTHOR AUTHOR'S ORGANIZ ATION 05/18/2025 [facility] REASON FOR VISIT (unrecogniz ed section [...] NEEDS AV ACCESS; [facility] AT [facility] [place], Need for dialysis accessWMN VoicemailTKM Pump start and U-500 refillTKM Pump orderTKM refill requestlab result/order for tandem pumplab results,suppliesTKM LyricaTKM - REFILL REQUEST FOR LYRICAletter for [facility] and HTNCKD Care Teams (unrecognized sec [...] Yocasta Villalba MD Other Provider Active Start: [facility] 2023 End: November 23, 2023 Chintan Hernández [...] Petznick , DO Primary Care Provider Active Yolie [...] Status: Active Member Role Status Dates Idania Herotanoick , DO Primary Care Provider Active Delano [...] Pettanoick , DO Primary Care Provider Active Chintan Brewster DO Attending Provider Active Team Status: Active Member Role Status Dates Idania Pettanoick , DO Primary Care Provider Active Michelle Kennedy APRN Attending Provider Active Team Status: Inactive Member Role Status Dates Idania Pettanoick , DO Primary Care Provider Active Clara Bell DO Emergency Provider Active Team Status: Inactive Member Role Status Dates Idaniakavita Rossick , DO Primary Care Provider Active Ramirez Jean MD Attending Provider Active Team Status: Inactive Member Role Status Dates Idania Herotanoick , DO Primary Care Provider Active Start: August 09, 2023 End: August 09, 2023 Clara Bell DO Emergency Provider Active St art: August 09, 2023 End: August 09, 2023 Team Status: Inactive Member Role Status Dates Idania Pettanoick , DO Primary Care Provider Active Start: September 16, 2023 End: September 16, 2023 Ramirez Jean MD Attending Provider Active S tart: September 16, 2023 End: September 16, 2023 Team Status: Inactive Member Role Status Dates Idania Pettanoick , DO Primary Care Provider Active Start: [...] September 27, 2023 End: September 27, 2023 Pneumatic Tube Fitter Relationship Specialty Start Date End Date Idania Ricketts, DO [address] [place] [address] [facility] 09/09/22 Idania Ricketts, DO [address] [place] [address] PCP - Medical [employer] 02/04/23 Idania Ricketts, DO [address] [place] [address] PCP - General Family Medicine 09/20/23 Pneumatic Tube Fitter Relationship Specialty Start Date End Date Idania Ricketts, DO [address] [place] [address] [facility] 09/09/22 Idania Ricketts, DO [address] [place] [address] PCP - Medical [employer] 02/04/23 Idania Ricketts, DO [address] [place] [address] PCP - General Family Medicine 09/20/23 Team Status: Inactive Member Role Status Dates Ramirez Jean MD Attending Provider Active S tart: October 04, 2023 End: October 04, 2023 Pneumatic Tube Fitter Relationship Specialty Start Date End Date Idania Ricketts, DO [address] [place] [address] PCP - [facility] 09/09/22 Idania Ricketts, DO [address] [place] [address] PCP - Medical [facility] 02/04/23 Idania Ricketts, DO [address] [place] [address] PCP - General Family Medicine 09/20/23 Team [...] May 15, 2024 End: May 15, 2024 Pneumatic Tube Fitter Relationship Specialty Start Date End Date Idania Ricketts DO [address] [place] [address] PCP - General Family Medicine 09/20/23 Pneumatic Tube Fitter Relationship Specialty Start Date End Date Idania Ricketts DO [address] [place] [address] PCP - General Family Medicine 09/20/23 Pneumatic Tube Fitter Relationship Specialty Start Date End Date Idania Ricketts DO [address] [place] [address] PCP - General Family Medicine 09/20/23 Idania Ricketts DO [address] [place] [address] PCP - [facility] 09/06/23 09/05/24 Pneumatic Tube Fitter Relationship Specialty Start Date End Date Idania Ricketts, DO [address] [place] [address] PCP - General Family Medicine 09/20/23 Idania Ricketts, DO [address] [place] [address] PCP - [facility] 09/06/23 09/05/24 Pneumatic Tube Fitter Relationship Specialty Start Date End Date Idania Ricketts, DO [address] [place] [address] PCP - General Family Medicine 09/20/23 Idania Ricketts, DO [address] [place] [address] PCP - [facility] 09/06/23 09/05/24 Pneumatic Tube Fitter Relationship Specialty Start Date End Date Idania Ricketts, DO [address] [place] [address] PCP - General Family Medicine 09/20/23 Pneumatic Tube Fitter Relationship Specialty Start Date End Date Idania Ricketts, DO [address] [place] [address] PCP - General Family Medicine 09/20/23 Pneumatic Tube Fitter Relationship Specialty Start Date End Date Idania Ricketts, DO [address] [place] [address] PCP - General Family Medicine 09/20/23 Pneumatic Tube Fitter Relationship Specialty Start Date End Date Idania Ricketts, DO [address] [place] [address] PCP - General Family Medicine 09/20/23 Pneumatic Tube Fitter Relationship Specialty Start Date End Date Idania Ricketts, DO [address] [place] [address] PCP - General Family Medicine 09/20/23 Pneumatic Tube Fitter Relationship Specialty Start Date End Date Idania Ricketts, DO [address] [place] [address] PCP - General Family Medicine 09/20/23 Idania Ricketts, DO [address] [place] [address] PCP - [facility] 09/06/23 09/05/24 Pneumatic Tube Fitter Relationship Specialty Start Date End Date Idania Ricketts, DO [address] [place] [address] PCP - General Family Medicine 09/20/23 Idania Ricketts, DO [address] [place] [address] PCP - [facility] 09/06/23 09/05/24 Pneumatic Tube Fitter Relationship Specialty Start Date End Date Idania Ricketts, DO [address] [place] [address] PCP - General Family Medicine 09/20/23 Pneumatic Tube Fitter Relationship Specialty Start Date End Date Idania Ricketts, DO [address] [place] [address] PCP - General Family Medicine 09/20/23 Pneumatic Tube Fitter Relationship Specialty Start Date End Date Idania Ricketts DO [address] [place] [address] PCP - [facility] Medicine 09/20/23 Pneumatic Tube Fitter Relationship Specialty Start Date End Date Idania Ricketts DO [address] [place] [address] PCP - [facility] Medicine 09/20/23 Pneumatic Tube Fitter Relationship Specialty Start Date End Date Idania Ricketts DO [address] [place] [address] PCP - [facility] Medicine 09/20/23 Pneumatic Tube Fitter Relationship Specialty Start Date End Date Idania Ricketts DO [address] [place] [address] PCP - [facility] Medicine 09/20/23 Team Status: Inactive Member Role Status Dates Idania DO Jamarcus Primary Care Provider Active Start: August 28, 2024 End: August 29, 2024 Delano Mondragon MD Emergency Provider Active Star t: August 28, 2024 End: August 29, 2024 Team Status: Active Member Role Status Dates Idania DO Jamarcus Primary Care Provider Active Start: October 29, [...] Start: ebruary 2024 End: October 30, 2024 IMAN ConcepcionC Other Provider Active Start: October 29, 2024 End: October 30, 2024 Ada Uriostegui MD Other Provider Active Start: [facility] 2024 End: October 30, 2024 Yocasta Villalba MD Other Provider Active Start: ebruary 2024 End: October 30, 2024 Gi Mondragon DPM Other Provider Active Star t: October 29, 2024 End: October 30, 2024 Pneumatic Tube Fitter Relationship Specialty Start Date End Date Idania Ricketts DO [address] [place] [address] PCP - [facility] 09/20/23 Team Status: Inactive Member Role Status Dates Idania Ricketts DO Primary Care Provider Active Start: November 27, 2024 End: November 28, 2024 Venkat Burgos DO Emergency Provider Active Sta rt: November 27, 2024 End: November 28, 2024 Pneumatic Tube Fitter Relationship Specialty Start Date End Date Idania Ricketts DO [address] [place] [address] PCP - General [facility] 09/20/23 Team Status: Inactive Member Role Status [...] February 13, 2025 End: February 13, 2025 Pneumatic Tube Fitter Relationship Specialty Start Date End Date Idania Ricketts DO [address] [place] [address] PCP - General Family Medicine 09/20/23 Team Status: Inactive Member Role Status Dates Idania Ricketts DO Primary Care Provider Active Start: February 13, 2025 End: February 13, 2025 Idaina Ricketts DO Referring Provider Active Start: February [...] March 26, 2025 End: March 26, 2025 Pneumatic Tube Fitter Relationship Specialty Start Date End Date Idania Ricketts DO [address] [place] [address] PCP - General 06/15/18 Team Status: Inactive Member Role Status Dates Idania Herokorina Primary Care Provider Active Start: April 24, 2025 End: April 24, 2025 Will Cerna PA-C Emergency Provider Active Start: April 24, 2025 End: April 24, 2025 Pneumatic Tube Fitter Relationship Specialty Start Date End Date Idania Ricketts DO [address] [place] [address] PCP - General 06/15/18 Pneumatic Tube Fitter Relationship Specialty Start Date End Date Idania Ricketts DO [address] [place] [address] PCP - General 06/15/18 Goals (unrecognized section [...] BE BASED ON THE PRIMARY CLINICAL RECORDS. [employer] provides no warranty or guarantee of the accuracy or completeness of information in this document.
[2025-05-18 17:55] VITALS: BP 154/90; PULSE 74; TEMP 36.7; O2SAT 100; BMI 38.5
== END 2025-05-18 18:28 | disposition left against medical advice (07) ==
LOC: ER 17:39
PROVIDERS: Emergency Provider Emergency Medicine; PCP Family Medicine
DX: Z53.21 Procedure and treatment not carried out due to patient leaving prior to being seen by health care provider (principal)

== ENCOUNTER 2025-06-16 09:02 | Emergency (ER) | payer MEDICARE, SELFPAY ==
--- OUTSIDE RECORDS SUMMARY | 2025-06-08 09:44 | XMS_ITS | Encounter Summary ---
Author Organization [facility] tem Address [id number] [address] [place] [address] Care Team Providers Care Piccoloist Name Role Phone Chintan Quinn DO Primary Care Provider [phone] Reason for Visit * Auth/Cert Specialty Diagnoses / Procedures Referred By Contac t Referred To Contact Diagnoses Spinal stenosis of lumbar region with neurogenic claudication Spinal stenosis of lumbar region with neurogenic claudication [M48.062] Procedures CO NJX DX/THER SBST INTRLMNR LMBR/SAC W/IMG GDN INJECTION BLOCK EPIDURAL CAUDAL STEROID Tyshawn Jacobson MD [address] [place] [address] Phone: tel: fax: Referral ID Status Reason Start Date Expiration Date Visits Re quested Visits Authorized [id number] 1 1 Encounter Details Date Type Department Care Team (Latest Contact Info) Description 06/08/2025 9:44 AM EDT - 06/08/2025 10:13 AM EDT Hospital Encounter [facility] - Pain Procedures [address] [place] [id number] Tyshawn Jacobson MD [address] [place] [address] Discharge Disposition: Home Social History Tobacco Use [...] got money to buy more. Never True 05/25/2025 Within the past 12 months th e food we bought just didn't last and we didn't have money to get more. Never True 05/25/2025 Purpose - Life Answer Date Recorded Purpose and direction in life Unknown Sex and Gender Information Value Date Recorded Sex Assigned at Not on file Legal Sex Male 12:06 PM EDT Gender Identity Not on file Sexual Orientation Not on file documented as of this encounter Last Filed Vital Signs Vital Sign Reading Time Taken Comments Blood Pressure 140/74 06/08/2025 9:58 AM EDT Pulse 84 06/08/2025 9:58 AM EDT Temperature 36.3 C (97.3 F) 06/08/2025 9:58 AM EDT Respiratory Rate 16 06/08/2025 9:58 AM EDT Oxygen Saturation 97% 06/08/2025 9:58 AM EDT Inhaled Oxygen Concentration - - Weight - - Height - - Body Mass Index - - documented in this encounter Discharge Instructions * Discharge Instructions* Christi Suarez RN - 06/08/2025 9:45 AM EDT Epidural Steroid Injection (AMBER) / [...] a safety precaution, you must have a mail truck driver after a lumbar nerve root injection, [...] back to normal. documented in this encounter Medications at Time of Discharge aspirin 81 mg chewable tablet Chew 1 tablet (81 mg total) and swallow in the morning. 06/22/2024 atorvastatin (LIPITOR) 20 mg tablet Take 1 tablet (20 mg total) by mouth in the morning. bumetanide (BUMEX) 1 mg tablet Take 2 tablets (2 mg total) by mouth daily. 05/17/2025 calcitrioL (ROCALTROL) 0.25 MCG capsule Take 1 capsule (0.25 mcg total) by mouth. calcium acetate,phosphat bind, (PHOSLO) 667 mg tabletIndication s:ESRD (end stage renal disease) on dialysis ([facility]) Take 1 tablet (667 mg total) by mouth in the morning and 1 tablet (667 mg total) at noon and 1 tablet (667 mg total) in the evening. Take with meals. 05/17/2025 carvediloL (COREG) 12.5 mg tablet Take 1 tablet (12.5 mg total) by mouth in the morning and 1 tablet (12.5 mg total) in the evening. Take with meals. 05/17/2025 insulin glargine (LANTUS) 100 unit/mL injection Inject 0.6 mL (60 Units total) under the skin in the morning. 05/17/2025 insulin lispro protamin-lispro (HumaLOG Mix 50-50 KwikPen) 100 unit/mL (50-50) insulin pen 100u am 90u at dinnertime 05/17/2025 levothyroxine sodium (TIROSINT) 25 mcg capsule Take 3 capsules (75 mcg total) by mouth in the morning. lisinopril (PRINIVIL,ZESTRI L) 10 mg tablet Take 1 tablet (10 mg total) by mouth in the morning. midodrine (PROAMATINE) 2.5 mg tablet Take 4 tablets (10 mg total) by mouth daily as needed (low BP on dialysis). 05/17/2025 NON FORMULARY Take 1 mg by mouth in the morning. Med Name: anaotrozole . nortriptyline (PAMELOR) 25 mg capsule Take 1 capsule (25 mg total) by mouth nightly. 30 capsule 1 04/27/2025 sevelamer (RENVELA) 800 mg tabletIndication s:ESRD (end stage renal disease) on dialysis ([facility]) Take 2 tablets (1,600 mg total) by mouth in the morning and 2 tablets (1,600 mg total) at noon and 2 tablets (1,600 mg total) in the evening. Take with meals. 05/17/2025 divalproex (DEPAKOTE) 125 mg EC tabletIndication s:Neuropathic pain of both feet Take 2 tablets (250 mg total) by mouth nightly for 30 days. 60 tablet 06/01/2025 documented as of this encounter H&P Notes * Tyshawn Jacobson MD - 06/08/2025 9:44 AM EDT HISTORY AND PHYSICAL INTERVAL NOTE: Mina Forte Jr. 1970 [id number] H&P reviewed. The patient was examined and there are no changes to the H&P. Tyshawn Jacobson Jr, MD Source Note - KAREN Box - 05/10/2025 1:00 PM EDT [facility] [address] [place] [address] Patient: Mina Wileykalen Gardner Sex: male : 1970 Age: 55 y.o. PCP: ANGEL RICKETTS DO 05/10/2025 Mina Forte Jr. is here [...] - 5-9am via left avf Diabetes mellitus ([facility]) Diabetes mellitus type 2, controlled ([facility]) Hyperlipidemia Hypothyroid Obesity Past Surgical History: Procedure Laterality Date CARDIAC CATHETERIZATION 12/2024 last one (2 total) FISTULA CREATION Left FOOT SURGERY Right INJECTION BLOCK EPIDURAL CAUDAL STEROID N/A 04/27/2025 Performed by Tyshawn Jacobson MD at [facility] Allergies Allergen Reactions Adhesive Tape-Silicones Rash Latex Rash If on for long periods of time Other Reaction(s): Unknown If on for long periods of time Vancomycin Hives Haloperidol Anxiety [place] Seed Abdominal Pain Runny nose, watery eyes [...] Resource Strain: Medium Risk (12/05/2024) Received from [facility] Overall Financial Resource Strain (CARDIA) Difficulty of Paying Living Expenses: Somewhat hard Food Insecurity: No Food Insecurity (05/10/2025) Hunger Screening Food Insecurity - Worry: Never True Food Insecurity - Inability: Never True Transportation Needs: No Transportation Needs (12/05/2024) Received from [facility] PRAPARE - Transportation Lack of Transportation (Medical): No Lack of Transportation (Non-Medical): No Physical Activity: Insufficiently Active (12/05/2024) Received from [facility] Exercise Vital Sign Days of Exercise per Week: 3 days Minutes of Exercise per Session: 30 min Stress: Stress Concern Present (12/05/2024) Received from [facility] [employer] [place] [employer] - Occupational Stress Questionnaire Feeling of Stress : To some extent Social Connections: Socially Integrated (12/05/2024) Received from [facility] Social Connection and Isolation Panel [...] Not At Risk (12/21/2024) Received from [facility] Humiliation, Afraid, Rape, and Kick questionnaire Fear of Current or Ex-Partner: No Emotionally Abused: No Physically Abused: No Sexually Abused: No Housing Instability: High Risk (12/05/2024) Received from [facility] Housing Stability Vital Sign Unable [...] BP medications on dialysis days which are Isnehb-Isqcbxukb-Qbypei and today he forgot to take them. [...] BLOCK EPIDURAL CAUDAL STEROID Diabetic peripheral neuropathy ([facility]) Continue Nortriptyline 25 mg at HS PLAN [...] to any procedure. OARRS: Reviewed. Scribe Statement: Minda Hook CNA, scribed for and in the presence of KAREN BOX who performed the above service. Minda Paiz CNA 05/10/25 1342 KAREN Box 05/15/25 1233 KAREN Box 06/08/25 0955 documented in this encounter Miscellaneous Notes * Op Note - Tyshawn Jacobson MD - 06/08/2025 10:18 AM EDT Caudal Epidural Injection Procedure Performed by: Tyshwan Jacobson M.D. Procedure: Procedure(s) (LRB): INJECTION BLOCK EPIDURAL CAUDAL STEROID (N/A) under fluoroscopic guidance Indication: Pain due to Spinal stenosis of lumbar region with neurogenic claudication [M48.062] Anesthesia: Local Risks, Benefits, Alternatives were reviewed, all questions were answered appropriately, informed consent was obtained both written and verbal prior to the procedure. The patient was escorted to the procedure room and placed in the prone position. A pre-procedure time out was conducted verifying patient name, site, and side of the procedure as well as any contraindications which there were none. The area of the sacral spine and sacral hiatus was prepped with chloroprep and draped in usual sterile fashion. Fluoroscopy was used to identify the landmarks including the sacral hiatus. Skin and subcutaneous tissues overlying this region were anesthetized with 3 milliliters of 1% lidocaine. A 17 gauge tuouy needle was then passed atraumatically through the sacral hiatus and into the caudal epidural space using intermittent fluoroscopy. Placement was confirmed after injection of 3 milliliters ofomnipaque dye in the PA and Lateral projections. At this point a total of 80 mg of depo medrol combined with 4 milliliters of 0.25% bupivacaine was slowly and incrementally injected after negative aspiration. The procedure was concluded with withdrawal of the needle and catheter with tip intact andplacement of a sterile bandage. The patient was escorted to the recovery area in stable condition having tolerated the procedure well. The patient will follow-up as scheduled. documented in this encounter Plan of Treatment Upcoming Encounters Date Type Department Care Team (Late st Contact Info) Description 06/21/2025 1:00 PM EDT Office Visit [facility] [address] [place] [address] [place] [phone] Chintan Quinn, [address] [facility], [place] [address] 06/28/2025 2:30 PM EDT Office Visit [facility] [address] [place] [phone] Maciej Roldan PA [address] [place] [address] documented as of this encounter Procedures Procedure Name Priority Date/Time Associated Diagnosis Comments CO NJX DX/THER SBST INTRLMNR LMBR/SAC W/IMG GDN 06/08/2025 10:17 AM EDT Spinal stenosis of lumbar region with neurogenic claudication Special Needs Diabetic, Dexcom Lt AV fistula, No BP/IV Latex, Adhesive Allergy BEDSIDE GLUCOSE Routine 06/08/2025 9:55 AM EDT documented in this encounter Results * (ABNORMAL) Bedside Glucose *Place/Obtain serum glucose if >500 per glucometer. (06/08/2025 9:55 AM EDT) Bedside Glucose (POC) 129(H) 65 - 99 mg/dL 06/08/2025 10:00 AM EDT [facility] arterial/capilla ry 06/08/2025 9:55 AM EDT 06/08/2025 10:00 AM EDT us Tyshawn Jacobson MD POINT OF CARE TEST ORDERABLES Final Result [facility] [address] [place] [address], documented in this encounter Visit Diagnoses Not on filedocumented in this encounter Additional Health Concerns Assessment Noted Time PHQ-9 Depression Total Score: 0 05/17/20 25 10:31 AM EDT A Body Mass Index follow-up plan has been documented for the patient 05/19/2025 9:44 PM EDT documented as of this encounter Care Teams Piccoloist Relationship Specialty Start Date End Date Chintan Quinn DO [address] [facility], [address] [place] [address] PCP - General Family Medicine 05/17/25 documented as of this encounter
--- OUTSIDE RECORDS SUMMARY | 2025-06-08 10:14 | XMS_ITS | Encounter Summary ---
Author Organization [facility] tem Address [id number] [address] [place] [address] Care Team Providers Care Pumper Gager Apprentice Name Role Phone Chintan Quinn DO Primary Care Provider [phone] Reason for Referral * Diagnostic Imaging (Routine) - Pending Review Specialty Diagnoses / Procedures Referred By Contac t Referred To Contact Diagnoses Spinal stenosis of lumbar region with neurogenic claudication Procedures Fluoroscopy less than one hour Tyshawn Jacobson MD [address] [facility] [place] [address] Phone: tel: fax: Referral ID Status Reason Start Date Expiration Date V isits Requested Visits Authorized [id number] Pending Review 06/06/2025 06/06/2026 1 1 Reason for Visit * Auth/Cert Specialty Diagnoses / Procedures Referred By Contac t Referred To Contact Diagnoses Spinal stenosis of lumbar region with neurogenic claudication Spinal stenosis of lumbar region with neurogenic claudication [M48.062] Procedures LA NJX DX/THER SBST INTRLMNR LMBR/SAC W/IMG GDN INJECTION BLOCK EPIDURAL CAUDAL STEROID Tyshawn Jacobson MD [address] [place] [address] Phone: tel: fax: Referral ID Status Reason Start Date Expiration Date Visits Re quested Visits Authorized [id number] 1 1 Encounter Details Date Type Department Care Team (Latest Contact Info) Description 06/08/2025 10:14 AM EDT - 06/08/2025 11:59 PM EDT Hospital Encounter [facility] [address] [place] [phone] Tyshawn Jacobson MD [address] [place], [place] [id number] Spinal stenosis of lumbar region with neurogenic claudication Discharge Disposition: Home Social History Tobacco Use [...] on file documented as of this encounter Medications at Time of Discharge [...] s:ESRD (end stage renal disease) on dialysis ([facility]) Take 1 tablet (667 mg total) [...] s:ESRD (end stage renal disease) on dialysis ([facility]) Take 2 tablets (1,600 mg total) [...] tablet 06/01/2025 documented as of this encounter Plan of Treatment Upcoming Encounters Date Type Department Care Team (Late st Contact Info) Description 06/21/2025 1:00 PM EDT Office Visit [facility] [address] [place] [phone] Chintan Quinn DO [address] [facility] [address], [facility] [address] [place], [place] [id number] 06/28/2025 2:30 PM EDT Office Visit [facility] [address] [place] [phone] Maciej Roldan PA [address] [place], [place] [phone] documented as of this encounter Procedures Procedure Name Priority Date/Time Associated Diagnosis Comments FL FLUOROSCOPY UP TO 1 HOUR Routine 06/08/2025 10:23 AM EDT Spinal stenosis of lumbar region with neurogenic claudication documented in this encounter Results * Fluoroscopy less than one hour (06/08/2025 10:23 AM EDT) Narrative SYSTEMGENERATED, DOCUMENTATION - 06/08/2025 10:23 AM EDT No Reading Required. This procedure does not require a formal dictation. Non-Radiologist provider performed procedures can be reviewed under Post-Op, Procedure or Progress notes. For full report details, please reach out to your physician. Effective 01/21/2021 this image will be visible to you in MyChart. us Tyshawn Jacobson MD IMG FLUOROSCOPY ORDERABLES Fi nal Result documented in this encounter Visit Diagnoses Diagnosis Spinal stenosis of lumbar region with neurogenic claudication documented in this encounter Additional Health Concerns Assessment Noted Time PHQ-9 Depression Total Score: 0 05/17/20 25 10:31 AM EDT A Body Mass Index follow-up plan has been documented for the patient 05/19/2025 9:44 PM EDT documented as of this encounter Care Teams Pumper Gager Apprentice Relationship Specialty Start Date End Date Chintan Quinn DO [address] [facility], [facility] [address] [place], [place] [id number] PCP - General Family Medicine 05/17/25 documented as of this encounter
--- OUTSIDE RECORDS SUMMARY | 2025-06-08 10:33 | XMS_ITS | Encounter Summary ---
Author Organization [facility] tem Address [facility]-[id number] [address] [place] [address] Care Team Providers Care Chemist Enzymes Name Role Phone Chintan Quinn DO Primary Care Provider [phone] Reason for Visit * Auth/Cert Specialty Diagnoses / Procedures Referred By Contac t Referred To Contact Diagnoses Spinal stenosis of lumbar region with neurogenic claudication Spinal stenosis of lumbar region with neurogenic claudication [M48.062] Procedures IN NJX DX/THER SBST INTRLMNR LMBR/SAC W/IMG GDN INJECTION BLOCK EPIDURAL CAUDAL STEROID Tyshawn Jacobson MD [address] [place] [address] Phone: tel: fax: Referral ID Status Reason Start Date Expiration Date Visits Re quested Visits Authorized [id number] 1 1 Encounter Details Date Type Department Care Team (Late st Contact Info) Description 06/08/2025 10:33 AM EDT - 06/08/2025 10:40 AM EDT Surgery [facility] - Pain Procedures [address] [place] [phone] Tyshawn Jacobson MD [address] [place] [address] INJECTION BLOCK EPIDURAL CAUDAL STEROID [71096 (CPT )] Surgery Details Date/Time Status Location OR Service Patient Class Case Class Case Type Trauma Case? 06/08/2025 10:33 AM Posted [facility] Management Outpatient Elective Panel 1 Procedure LRB Anes Op Region Wound Class Comments INJECTION BLOCK EPIDURAL CAUDAL STEROID N/A Local Clean Surgeon Surgeon Role Service Panel Tyshawn Jacobson MD Primary Pain Management 1 Special Needs Diabetic, Dexcom Lt AV fistula, No BP/IV Latex, Adhesive Allergy documented in this encounter Social History Tobacco Use Types Packs/Day Years [...] Sign Reading Time Taken Comments Blood Pressure 165/74 06/08/2025 10:24 AM EDT Pulse 78 06/08/2025 10:24 AM EDT Temperature 36.3 C (97.3 F) 06/08/2025 9:58 AM EDT Respiratory Rate 18 06/08/2025 10:24 AM EDT Oxygen Saturation 97% 06/08/2025 10:24 AM EDT Inhaled Oxygen Concentration - - [...] a safety precaution, you must have a medical driver after a lumbar nerve root injection, [...] s:ESRD (end stage renal disease) on dialysis ([facility]) Take 1 tablet (667 mg total) by [...] s:ESRD (end stage renal disease) on dialysis ([facility]) Take 2 tablets (1,600 mg total) by [...] PHYSICAL INTERVAL NOTE: Mina Forte Jr. 1970 [id number] H&P reviewed. The patient was examined and there are no changes to the H&P. Tyshawn Jacobson Jr, MD Source Note - KAREN Box - 05/10/2025 1:00 PM EDT [facility] [address] [place] [address] Patient: Mina Forte Jr. Sex: male : 1970 Age: 55 y.o. PCP: ANGEL RICKETST, 05/10/2025 Mina Forte Jr. is here for [...] x 1 day Pain scale after treatment: 810 Chief Complaint Patient presents with Back Pain [...] on 5-9am via left avf Diabetes mellitus ([facility]) Diabetes mellitus type 2, controlled ([facility]) Hyperlipidemia Hypothyroid Obesity Past Surgical History: Procedure Laterality Date CARDIAC CATHETERIZATION 12/2024 last one (2 total) FISTULA CREATION Left FOOT SURGERY Right INJECTION BLOCK EPIDURAL CAUDAL STEROID N/A 04/27/2025 Performed by Tyshawn Jacobson MD at [facility] Allergies Allergen Reactions Adhesive Tape-Silicones Rash Latex Rash If on for long periods of time Other Reaction(s): Unknown If on for long periods of time Vancomycin Hives Haloperidol Anxiety [place] Abdominal Pain Runny nose, watery eyes [...] Resource Strain: Medium Risk (12/05/2024) Received from [facility] Overall Financial Resource Strain (CARDIA) Difficulty of Paying Living Expenses: Somewhat hard Food Insecurity: No Food Insecurity (05/10/2025) Hunger Screening Food Insecurity - Worry: Never True Food Insecurity - Inability: Never True Transportation Needs: No Transportation Needs (12/05/2024) Received from [facility] PRAPARE - Transportation Lack of Transportation (Medical): No Lack of Transportation (Non-Medical): No Physical Activity: Insufficiently Active (12/05/2024) Received from [facility] Exercise Vital Sign Days of Exercise per Week: 3 days Minutes of Exercise per Session: 30 min Stress: Stress Concern Present (12/05/2024) Received from [facility] [place] [employer] - Occupational Stress Questionnaire Feeling of Stress : To some extent Social Connections: Socially Integrated (12/05/2024) Received from [facility] Social Connection and Isolation Panel [NHANES] Frequency of Communication with Friends and Family: More than three times a week Frequency of Social Gatherings with Friends and Family: Three times a week Attends Buddhism Services: 1 to 4 times per year [...] Housing Instability: High Risk (12/05/2024) Received from [facility] Housing Stability Vital Sign Unable to Pay [...] BP medications on dialysis days which are [id number] and today he forgot to take them. [...] EDT Caudal Epidural Injection Procedure Performed by: Tyshawn Jacobson M.D. Procedure: Procedure(s) (LRB): INJECTION BLOCK [...] Description 06/21/2025 1:00 PM EDT Office Visit [facility] Family [facility] [address] [place] [phone] Chintan Quinn, [address], [address], [place] [address] 06/28/2025 2:30 PM EDT Office Visit [facility] [address] [place] [phone] Maciej Roldan, KAREN [address] [facility] [address] [place], [place] [phone] documented as of this encounter Procedures Procedure Name Priority Date/Time Associated Diagnosis Comments IN NJX DX/THER SBST INTRLMNR LMBR/SAC W/IMG GDN [...] - 99 mg/dL 06/08/2025 10:00 AM EDT [facility] arterial/capilla ry 06/08/2025 9:55 AM EDT 06/08/2025 10:00 AM EDT us Tyshawn Jacobson MD POINT OF CARE TEST ORDERABLES Final Result [facility] [address] [place] [address], documented in this encounter Visit Diagnoses Diagnosis Spinal stenosis of lumbar region with neurogenic claudication documented in this encounter Administered Medications Inactive Administered Medications - up to 3 most recent administrations Medication Order MAR Action Action Date Dose Rate Site BUPivacaine (PF) (MARCAINE) 0.25 % (2.5 mg/mL) injection As needed, Starting on Wed06/08/25 at 1020, Intra-op Given 06/08/2025 10:20 AM EDT 2 mL iohexoL (OMNIPAQUE) 300 mg iodine/mL As needed, Starting on Wed06/08/25 at 1021, Intra-op Given 06/08/2025 10:21 AM EDT 3 mL methylPREDNISolone acetate (DEPO-MEDROL) injection As needed, Starting on Wed06/08/25 at 1021, Intra-op Given 06/08/2025 10:21 AM EDT 80 mg documented in this encounter Additional Health Concerns Assessment Noted Time PHQ-9 Depression Total Score: 0 05/17/20 10:31 AM EDT A Body Mass Index follow-up plan has been documented for the patient 05/19/2025 9:44 PM EDT documented as of this encounter Care Teams Chemist Enzymes Relationship Specialty Start Date End Date Chintan Quinn DO [address] [place] [address], [place] [address] PCP - General Family Medicine 05/17/25 documented as of this encounter
[2025-06-16 09:12] VITALS: BP 199/102; PULSE 72; TEMP 36.6; O2SAT 98; BMI 38.5
--- OUTSIDE RECORDS SUMMARY | 2025-06-16 09:14 | XMS_ITS | Encounter Summary ---
Author Organization [facility] tem Address [facility]-[id number] [address] [place] [address] Care Team Providers Care Veterinary Assistant Name Role Phone Chintan Apple DO Primary Care Provider [phone] Reason for Visit * Reason Onset Date Comments Depakote Dosage Increase 06/13/2025 Encounter Details Date Type Department Care Team (Late st Contact Info) Description 06/13/2025 Telephone [facility] Family Medicine [address] [place] [address] Estella [place] CNA Depakote Dosage Increase Social History Tobacco Use Types Packs/Day Years [...] encounter Miscellaneous Notes * Telephone Encounter - Estella [place] CNA - 06/13/2025 4:19 PM EDT Ha called inquiring about an increase of his Depakote dosage. He stated the medication is not lasting long enough and his feet begin to hurt. Please advise. * Telephone Encounter - Chintan Apple DO - 06/13/2025 4:19 PM EDT Please let Ha know that I sent a new prescription for Depakote 125 mg for 2 tablets taken twice daily to help with neuropathic pain in his feet. Prescription sent into [facility]. Thank you * Telephone Encounter - Lorena Hall CNA - 06/13/2025 4:19 PM EDT Attempted to call patient, left VM to call office back, sent [employer] message also * Addendum Note - Chintan Apple DO - 06/13/2025 4:19 PM EDTAddended by: CHINTAN APPLE on: 06/14/2025 03:12 PM Modules accepted: Orders documented in this encounter Plan of Treatment Upcoming Encounters Date Type Department Care Team (Late st Contact Info) Description 06/21/2025 1:00 PM EDT Office Visit [facility] [address] [place] [address] Chintan Apple DO [address] [place] [address], [facility] [address], [place] [address] 06/28/2025 2:30 PM EDT Office Visit [facility] [address] [place] [phone] Maciej Roldan, KAREN [address] [place], [place] [phone] documented as of this encounter Visit Diagnoses Diagnosis Neuropathic pain of both feet documented in this encounter Additional Health Concerns Assessment Noted Time PHQ-9 Depression Total Score: 0 05/17/20 10:31 AM EDT A Body Mass Index follow-up plan has been documented for the patient 05/19/2025 9:44 PM EDT documented as of this encounter Care Teams Veterinary Assistant Relationship Specialty Start Date End Date Chintan Apple DO [address] [place] [address], [place] [address] PCP - General Family Medicine 05/17/25 documented as of this encounter
--- OUTSIDE RECORDS SUMMARY | 2025-06-16 09:14 | XMS_ITS | Encounter Summary ---
Author Organization [facility] Address [address] [place] [address] Care Team Providers Care Highway Engineering Teacher Name Role Phone Idania Gaston DO Unavailable [phone] Idania Gaston DO Primary Care Provider [phone] Idania Gaston DO Unavailable [phone] Encounter Details Date Type Department Care Team (Late st Contact Info) Description 10/27/2023 Abstract [facility] [place] [facility] [address] [facility] [address] [place] [address] Idania Gaston DO [address] [place] [address] Social History Tobacco Use Types Packs/Day Years [...] Care Team (Late st Contact Info) Description 07/10/2025 10:30 AM EST Office [facility] [address] [place] [address] Diamante Mondragon DPM [address] [place] [address] 07/24/2025 1:30 PM EST Office [facility] [address] [place] [address] Idania Gaston, [address] [place] [address] documented as of this encounter Visit Diagnoses Not on filedocumented in this encounter Care Teams Highway Engineering Teacher Relationship Specialty Start Date End Date Idania Gaston, [address] [place] [address] PCP - Medical [place] [employer] 02/04/23 11/13/23 Idania Gaston, DO [address] [place] [address] PCP - General Family Medicine 09/20/23 Idania Gaston DO [address] [place] [address] PCP - [facility] 09/06/23 documented as of this encounter
--- OUTSIDE RECORDS SUMMARY | 2025-06-16 09:14 | XMS_ITS | Encounter Summary ---
Author Organization [facility] Address [address] [facility] [place] [address] Care Team Providers Care Preforming Machine Operator Name Role Phone Idania Gaston DO Unavailable [phone] Idania Gaston DO Primary Care Provider + [phone] Idania Gaston DO Unavailable [phone] Encounter Details Date Type Department Care Team (Late st Contact Info) Description 10/06/2023 Abstract [facility] [place] [facility] [address] [facility] [address] [place] [address] Idania Gaston DO [address] [place] [address] Social History Tobacco Use Types Packs/Day Years [...] [address] [place] [address] Diamante Mondragon, DPM [address] [place] [address] 07/24/2025 1:30 PM EST Office [facility] [address] [place] [address] Idania Gaston DO [address] [place] [address] documented as of this encounter Visit Diagnoses Not on filedocumented in this encounter Care Teams Preforming Machine Operator Relationship Specialty Start Date End Date Idania Gaston, DO [address] [place] [address] PCP - Medical [place] [employer] 02/04/23 11/13/23 Idania Gaston DO [address] [place] [address] PCP - General Family Medicine 09/20/23 Idania Gaston, [address] [place] [address] PCP - [facility] 09/06/23 documented as of this encounter
--- OUTSIDE RECORDS SUMMARY | 2025-06-16 09:14 | XMS_ITS | Encounter Summary ---
Author Organization [facility] Address [address] [place] [address] Care Team Providers Care Senior Telecommunications Engineer Name Role Phone Idania Gaston DO Primary Care Provider [phone]- [phone] Idania Gaston DO Unavailable [phone] Encounter Details Date Type Department Care Team (Late st Contact Info) Description 09/19/2024 Abstract [facility] [place] [facility] [address] [facility] [address] [place] [phone] Idania Gaston, DO [address] [facility] [address] [place] [address] Social History Tobacco Use Types [...] [address] [place] [address] Diamante Mondragon DPM [address] [place] [address] 07/24/2025 1:30 PM EST Office Visit [facility] [address] [place] [address] Idania Gaston DO [address] [place] [address] documented as of this encounter Visit Diagnoses Not on filedocumented in this encounter Care Teams Senior Telecommunications Engineer Relationship Specialty Start Date End Date Idania Gaston DO [address] [place] [address] PCP - General Family Medicine 09/20/23 Idania Gaston DO [address] [place] [address] PCP - [facility] 09/06/23 documented as of this encounter
--- OUTSIDE RECORDS SUMMARY | 2025-06-16 09:14 | XMS_ITS | Encounter Summary ---
Author Organization [facility] Address [address] [place] [address] Care Team Providers Care Box Car Checker Name Role Phone Idania Gaston DO Primary Care Provider [phone] Idania Gaston DO Unavailable [phone] Encounter Details Date Type Department Care Team (Late st Contact Info) Description 11/22/2023 Abstract [facility] [place] [facility] [address] [facility] [address] [place] [address] Idania Gaston, DO [address] [facility] [address] [place] [address] Social History Tobacco Use Types Packs/Day Years [...] [address] [place] [address] Diamante Mondragon DPM [address] [place] [address] 07/24/2025 1:30 PM EST Office Visit [facility] [address] [place] [address] Idania Gaston DO [address] [place] [address] documented as of this encounter Visit Diagnoses Not on filedocumented in this encounter Care Teams Box Car Checker Relationship Specialty Start Date End Date Idania Gaston DO [address] [place] [address] PCP - General Family Medicine 09/20/23 Idania Gaston DO [address] [place] [address] PCP - [facility] 09/06/23 documented as of this encounter
--- OUTSIDE RECORDS SUMMARY | 2025-06-16 09:14 | XMS_ITS | Encounter Summary ---
Author Organization [facility] Address [address] [place] [address] Care Team Providers Care Campus Receptionist Name Role Phone Idania Gaston DO Primary Care Provider [phone]- [phone] Idania Gaston DO Unavailable [phone] Encounter Details Date Type Department Care Team (Late st Contact Info) Description 11/24/2023 Abstract [facility] [place] [facility] [address] [facility] [address] [place] [address] Idania Gaston, DO [address] [facility] [address] [place] [address] Social History Tobacco Use Types Packs/Day Years [...] [address] [place] [address] Diamante Mondragon DPM [address] [place] [address] 07/24/2025 1:30 PM EST Office Visit [facility] [address] [place] [address] Idania aGston DO [address] [place] [address] documented as of this encounter Visit Diagnoses Not on filedocumented in this encounter Care Teams Campus Receptionist Relationship Specialty Start Date End Date Idania Gaston DO [address] [place] [address] PCP - General Family Medicine 09/20/23 Idania Gaston DO [address] [place] [address] P[address] - [facility] 09/06/23 documented as of this encounter
--- OUTSIDE RECORDS SUMMARY | 2025-06-16 09:14 | XMS_ITS | Clinical Summary ---
Author Organization [facility] Address [address] [place], [place] [address] Care Team Providers Care Hand Assembler For Puller Over Name Role Phone Idania Gaston Primary Care [...] 2) 2021 Influenza Vaccine (#1) 2025 Insurance [employer] PPO Care Teams Hand Assembler For Puller Over Relationship Specialty Start Date End Date Marilin Idaniakavita Rodriguez PCP - General Unspecified 07/08/12
--- OUTSIDE RECORDS SUMMARY | 2025-06-16 09:14 | XMS_ITS | Encounter Summary ---
Author Organization [facility] Address [address] [place] [address] Care Team Providers Care Government Relations Analyst Name Role Phone Idania Gaston DO Primary Care Provider [phone]- [phone] Idania Gaston DO Unavailable [phone] Encounter Details Date Type Department Care Team (Late st Contact Info) Description 11/26/2023 Abstract [facility] [place] [facility] [address] [facility] [address] [place] [address] Idania Gaston, DO [address] [facility] [address] [place] [address] Social History Tobacco Use Types Packs/Day Years [...] [address] [place] [address] Diamante Mondragon DPM [address] [place] [address] 07/24/2025 1:30 PM EST Office Visit [facility] [address] [place] [address] Idania Gaston DO [address] [place] [address] documented as of this encounter Visit Diagnoses Not on filedocumented in this encounter Care Teams Government Relations Analyst Relationship Specialty Start Date End Date Idania Gaston DO [address] [place] [address] PCP - General Family Medicine 09/20/23 Idania Gaston DO [address] [place] [address] PCP - [facility] 09/06/23 documented as of this encounter
--- OUTSIDE RECORDS SUMMARY | 2025-06-16 09:14 | XMS_ITS | Encounter Summary ---
Author Organization [facility] Address [address] [place] [address] Care Team Providers Care Credit Reference Clerk Name Role Phone Idania Gaston DO Primary Care Provider [phone] Idania Gaston DO Unavailable [phone] Reason for Visit * Reason Comments Med Refill Encounter Details Date Type Department Care Team (Late st Contact Info) Description 11/01/2024 Refill [facility] [place] [facility] [address] [facility] [address] [place] [address] Idania Gaston DO [address] [place] [address] Acquired hypothyroidism Social History Tobacco Use Types [...] Description 07/10/2025 10:30 AM EST Office Visit [facility] [place] [facility] [address] [place] [address] Diamante Mondragon DPM [address] [place] [address] 07/24/2025 1:30 PM EST Office [facility] [address] [place] [address] Idania Gaston DO [address] [place] [address] documented as of this encounter Visit Diagnoses Diagnosis Acquired hypothyroidism Unspecified hypothyroidism documented in this encounter Care Teams Credit Reference Clerk Relationship Specialty Start Date End Date Idania Gaston DO [address] [place] [address] PCP - General Family Medicine 09/20/23 Idania Gaston DO [address] [place] [address] PCP - [facility] 09/06/23 documented as of this encounter
--- OUTSIDE RECORDS SUMMARY | 2025-06-16 09:14 | XMS_ITS | Encounter Summary ---
Author Organization [facility] tem Address [facility] [id number] [address] [place] [address] Care Team Providers Care Catalyst Operator Gasoline Name Role Phone Chintan Quinn DO Primary Care Provider [phone] Encounter Details Date Type Department Care Team (Late st Contact Info) Description 04/27/2025 Results Follow-Up [facility] - Pain Procedures [address] [place] [phone] Tyshawn Jacobson MD [address] [place], [place] [phone] Bedside Glucose *Place/Obtain serum glucose if >500 [...] Description 06/21/2025 1:00 PM EDT Office Visit [facility] [address] [place] [phone] Chintan Quinn DO [address] [facility] [address], [place], [place] [address] 06/28/2025 2:30 PM EDT Office Visit [facility] [address] [place] [address] Maciej Roldan PA [address] [place] [address] documented as of this encounter Visit Diagnoses Not on filedocumented in this encounter Care Teams Catalyst Operator Gasoline Relationship Specialty Start Date End Date Chintan Quinn DO [address] [facility] [address], [place], [place] [address] PCP - General Family Medicine 05/17/25 documented as of this encounter
--- OUTSIDE RECORDS SUMMARY | 2025-06-16 09:14 | XMS_ITS | Encounter Summary ---
Author Organization [facility] Address [address] [place] [address] Care Team Providers Care Childbirth And Infant Care Teacher Name Role Phone Idania Gatson DO Primary Care Provider +- [phone] Idania Gaston DO Unavailable [phone] Encounter Details Date Type Department Care Team (Late st Contact Info) Description 11/22/2023 Abstract [facility] [place] [facility] [address] [facility] [address] [place] [address] Idania Gaston, DO [address] [facility] [address] [place] [address] Social History Tobacco Use Types Packs/Day Years [...] [address] [place] [address] Diamante Mondragon DPM [address] [place] [address] 07/24/2025 1:30 PM EST Office Visit [facility] [address] [place] [address] Idania Gaston DO [address] [place] [address] documented as of this encounter Visit Diagnoses Not on filedocumented in this encounter Care Teams Childbirth And Infant Care Teacher Relationship Specialty Start Date End Date Idania Gaston DO [address] [place] [address] PCP - General Family Medicine 09/20/23 Idania Gaston DO [address] [place] [address] PCP - [facility] 09/06/23 documented as of this encounter
--- OUTSIDE RECORDS SUMMARY | 2025-06-16 09:14 | XMS_ITS | Encounter Summary ---
Author Organization [facility] Address [address] [place] [address] Care Team Providers Care Supervisor Poultry Farm Name Role Phone Idania Gaston DO Primary Care Provider +- [phone] Idania Gaston DO Unavailable Encounter Details Date Type Department Care Team (Late st Contact Info) Description 11/22/2023 Abstract [facility] [place] [facility] [address] [facility] [address] [place] [address] Idania Gaston, DO [address] [facility] 230 [place] [address] Social History Tobacco Use Types Packs/Day Years [...] [address] [place] [address] Diamante Mondragon DPM [address] [place] [address] 07/24/2025 1:30 PM EST Office Visit [facility] [address] [place] [address] Idania Gaston DO [address] [place] [address] documented as of this encounter Visit Diagnoses Not on filedocumented in this encounter Care Teams Supervisor Poultry Farm Relationship Specialty Start Date End Date Idania Gaston DO [address] [place] [address] PCP - General Family Medicine 09/20/23 Idania Gaston DO [address] [place] [address] PCP - [facility] 09/06/23 documented as of this encounter
--- OUTSIDE RECORDS SUMMARY | 2025-06-16 09:14 | XMS_ITS | Encounter Summary ---
Author Organization [facility] Address [address] [place] [address] Care Team Providers Care Colorist Name Role Phone Idania Gaston DO Unavailable [phone] Idania Gaston DO Primary Care Provider + [phone] Idania Gaston DO Unavailable [phone] Encounter Details Date Type Department Care Team (Late st Contact Info) Description 10/18/2023 External Result Encounter [facility] External Department Unsolicited Flakito High, DO [address] [facility] 150 [place] [address] Social History Tobacco Use Types Packs/Day Years [...] [address] [place] [address] Diamante Mondragon DPM [address] [place] [address] 07/24/2025 1:30 PM EST Office Visit [facility] [address] [place] [address] Idania Gaston DO [address] [place] [address] documented as of this encounter Procedures Procedure Name Priority Date/Time Associated Diagnosis Comments ECG 12-LEAD 10/18/2023 7:16 AM EST documented in this encounter Results * ECG 12 lead (10/18/2023 7:16 AM EST) 10/18/2023 7:16 AM EST [facility] - 10/18/2023 10:49 AM EST [facility] Main [address] [address] Electrocardiograph Report Signed Patient: Mina Forte MR#: [id number] : 1970 Acct:[id number] Age/Sex: 53 / M ADM Date: 10/18/23 Loc: PS Room: Type: [facility] Attending Dr: Flakito High DO Ordering [...] Normal ECG When compared with ECG of 20-AAN-2024 19:02, No significant change was found Confirmed by Pedro Marroquin ([id number]) on 10/18/2023 10:49:16 AM Referred By: JAMARCUS HIGH Electronically Signed By:Pedro Marroquin Transcribed By: JOHN Signed By Pedro Marroquin MD 10/18/23 1049 Procedure Note Ila Marroquin MD - 10/18/2023 [facility] Main [place] [address] [place], [place] [id number] Electrocardiograph Report Signed Patient: Mina Forte BMR#: [id number] : 1970Acct:[id number] Age/Sex: 53 / MADM Date: 10/18/23 Loc: Room:Type: [facility] Attending Dr: Flakito High DO Ordering [...] change was found Confirmed by Pedro Marroquin ([id number]) on 10/18/2023 10:49:16 AM Referred By: JAMARCUS HIGH Electronically Signed By:Dionte Transcribed By: JOHN Signed By Pedro Marroquin MD 10/18/23 1049 us Flakito High DO ECG ORDERABLES Final Result [address] [address], documented in this encounter Visit Diagnoses Not on filedocumented in this encounter Care Teams Colorist Relationship Specialty Start Date End Date Idania Gaston DO [address] [place] [address] PCP - [facility] 02/04/23 11/13/23 Idania Gaston DO [address] [facility] [place] [address] PCP - General Family Medicine 09/20/23 Idania Gaston DO [address] [facility] [place] [address] PCP - [facility] 09/06/23 documented as of this encounter
--- OUTSIDE RECORDS SUMMARY | 2025-06-16 09:14 | XMS_ITS | Encounter Summary ---
Author Organization [facility] Address [address] [place] [address] Care Team Providers Care Pricing/Signage Team Member Name Role Phone Idania Gaston DO Primary Care Provider +1- [phone] Marilin Idania Mcfarlane DO Unavailable [phone] Encounter Details Date Type Department Care Team (Late st Contact Info) Description 11/23/2023 External Result Encounter [facility] External Department Unsolicited Diamante Mondragon, DPM [address] [place] [address] Social History Tobacco Use Types Packs/Day Years [...] [facility] [address] [place] [address] Diamante Mondragon DPM [address] [place] [address] 07/24/2025 1:30 PM EST Office Visit [facility] [address] [place] [address] Idania Gaston DO [address] [place] [address] documented as of this encounter Procedures Procedure [...] Ramirez Guadarrama M.D.11/23/2023 3:35 PM Dictation Location: [place] [address] Transcribed By: [facility] 11/23/23 1535 Dictated By: Ramierz Guadarrama DO 11/23/23 1529 Signed By: <Electronically signed by Ramirez Guadarrama DO in OV> 11/23/23 1535 Narrative 11/23/2023 3:38 PM EDT [facility] Main [place] [address] [place] [address] MRI Report Signed Patient: Mina Forte MR#: [id number] : 1970 Acct:[id number] Age/Sex: 53 / M ADM Date: 03/16/24 Loc: 3T Room: [address] [place] [address] Type: ADM IN Attending Dr: Amy Escudero [...] Procedure Note Radiology, Radiologist, MD - 11/23/2023 [facility] Main [place] [address] [place] [address] MRI Report Signed Patient: Mina Forte BMR#: [id number] : 1970Acct:[id number] Age/Sex: 53 / MADM Date: 11/20/23 Loc: 3T Room: [id number]: ADM IN Attending Dr: Amy Escudero DO [...] Ramirez Guadarrama M.D.11/23/2023 3:35 PM Dictation Location: [facility]--12 Transcribed By: [facility] 11/23/23 1535 Dictated By: Ramirez Guadarrama DO 11/23/23 1529 Signed By: <Electronically signed by Ramirez Guadarrama DO in OV> 11/23/23 1535 Diamante Mondragon DPM IMG MRI PROCEDURES Final R esult documented in this encounter Visit Diagnoses Not on filedocumented in this encounter Care Teams Pricing/Signage Team Member Relationship Specialty Start Date End Date Idania Gaston DO [address] [place] [address] PCP - General Family Medicine 09/20/23 Idania Gaston DO [address] [place] [address] PCP - [facility] 09/06/23 documented as of this encounter
--- OUTSIDE RECORDS SUMMARY | 2025-06-16 09:14 | XMS_ITS | Encounter Summary ---
Author Organization [facility] Address [address] [place] [address] Care Team Providers Care Carousel Attendant Name Role Phone Idania Gaston DO Primary Care Provider +- [phone] Idania Gaston DO Unavailable [phone] Encounter Details Date Type Department Care Team (Late st Contact Info) Description 09/22/2024 Abstract [facility] [place] [facility] [address] [facility] [address] [place] [address] Idania Gaston, DO [address] [facility] [address] [place] [address] Social History Tobacco Use Types Packs/Day Years [...] [address] [place] [address] Diamante Mondragon DPM [address] [place] [address] 07/24/2025 1:30 PM EST Office Visit [facility] [address] [place] [address] Idania Gaston DO [address] [place] [address] documented as of this encounter Visit Diagnoses Not on filedocumented in this encounter Care Teams Carousel Attendant Relationship Specialty Start Date End Date Idania Gaston DO [address] [place] [address] PCP - General Family Medicine 09/20/23 Idania Gaston DO [address] [place] [address] PCP - [facility] 09/06/23 documented as of this encounter
--- OUTSIDE RECORDS SUMMARY | 2025-06-16 09:14 | XMS_ITS | Encounter Summary ---
Author Organization [facility] Address [address] [place] [address] Care Team Providers Care Mechanic Field Service Name Role Phone Idania Gaston DO Primary Care Provider +- [phone] Idania Gaston DO Unavailable [phone] Encounter Details Date Type Department Care Team (Late st Contact Info) Description 06/23/2024 Abstract [facility] [place] [facility] [address] [facility] [address] [place] [address] Idania Gaston, DO [address] [facility] 230 [place] [address] Social History Tobacco Use Types Packs/Day Years [...] [address] [place] [address] Diamante Mondragon DPM [address] [place] [address] 07/24/2025 1:30 PM EST Office Visit [facility] [address] [place] [address] Idania Gaston DO [address] [place] [address] documented as of this encounter Visit Diagnoses Not on filedocumented in this encounter Care Teams Mechanic Field Service Relationship Specialty Start Date End Date Idania Gaston DO [address] [place] [address] PCP - General Family Medicine 09/20/23 Idania Gaston DO [address] [place] [address] PCP - [facility] 09/06/23 documented as of this encounter
--- OUTSIDE RECORDS SUMMARY | 2025-06-16 09:15 | XMS_ITS | Encounter Summary ---
Author Organization [facility] tem Address [id number] [address] [place] [address] Care Team Providers Care Roughener Name Role Phone HangChintan oliveira Joshua CALABRESE Primary Care Provider Encounter Details Date Type Department Care Team (Latest Contact Info) Description 06/07/2025 Travel Social History Tobacco Use Types Packs/Day [...] Description 06/21/2025 1:00 PM EDT Office Visit [facility] [address] [place] [address] [place] [address] Chintan Quinn DO [address] [facility], [place], [place] [address] 06/28/2025 2:30 PM EDT Office Visit [facility] [address] [place] [address] Maciej Roldan PA [address] [place], [place] [address] documented as of this encounter Visit Diagnoses Not on filedocumented in this encounter Additional Health Concerns Assessment Noted Time PHQ-9 Depression Total Score: 0 05/17/20 10:31 AM EDT A Body Mass Index follow-up plan has been documented for the patient 05/19/2025 9:44 PM EDT documented as of this encounter Care Teams Roughener Relationship Specialty Start Date End Date Chintan Quinn DO [address] [facility], [place], [place] [address] PCP - General Family Medicine 05/17/25 documented as of this encounter
--- OUTSIDE RECORDS SUMMARY | 2025-06-16 09:15 | XMS_ITS | Encounter Summary ---
Author Organization [facility] Address [address] [place] [address] Care Team Providers Care Ophthalmic Pathologist Name Role Phone Idania Gaston DO Primary Care Provider +- [phone] Idania Gaston DO Unavailable [phone] Encounter Details Date Type Department Care Team (Late st Contact Info) Description 12/27/2023 Abstract [facility] [place] [facility] [address] [facility] [address] [place] [address] Idania Gaston, DO [address] [facility] [address] [place] [address] Social History Tobacco Use Types Packs/Day Years [...] [address] [place] [address] Diamante Mondragon DPM [address] [place] [address] 07/24/2025 1:30 PM EST Office Visit [facility] [address] [place] [address] Idania Gaston DO [address] [place] [address] documented as of this encounter Visit Diagnoses Not on filedocumented in this encounter Care Teams Ophthalmic Pathologist Relationship Specialty Start Date End Date Idania Gaston DO [address] [place] [address] PCP - General Family Medicine 09/20/23 Idania Gaston DO [address] [place] [address] PCP - [facility] 09/06/23 documented as of this encounter
--- OUTSIDE RECORDS SUMMARY | 2025-06-16 09:15 | XMS_ITS | Encounter Summary ---
Author Organization [facility] Address [address] [place] [address] Care Team Providers Care Route Aide Name Role Phone Idania Gaston DO Primary Care Provider +- [phone] Idania Gaston DO Unavailable [phone] Encounter Details Date Type Department Care Team (Late st Contact Info) Description 05/25/2025 Abstract [facility] [place] [facility] [address] [facility] [address] [place] [address] Idania Gaston, DO [address] [facility] 230 [place] [address] Social History Tobacco Use Types Packs/Day Years [...] you attend [facility] or yarsani services? 1 to 4 times per year 12/05/2024 Do you belong to any clubs o r organizations such as rastafarian groups, unions, fraternal or athletic groups, or [...] Date Recorded Patient Health Questionnaire-2 Score 0 05/22/2025 [facility] Occupat ional Health [...] [address] [place] [address] Diamante Mondragon DPM [address] [place] [address] 07/24/2025 1:30 PM EST Office Visit [facility] [address] [place] [address] Idania Gaston DO [address] [place] [address] documented as of this encounter Visit Diagnoses Not on filedocumented in this encounter Care Teams Route Aide Relationship Specialty Start Date End Date Idania Gaston DO [address] [place] [address] PCP - General Family Medicine 09/20/23 Idania Gaston DO [address] [place] [address] PCP - [facility] 09/06/23 documented as of this encounter
--- OUTSIDE RECORDS SUMMARY | 2025-06-16 09:15 | XMS_ITS | Encounter Summary ---
Author Organization [facility] Address [address] [place] [address] Care Team Providers Care Artillery Officer Name Role Phone Idania Gaston DO Unavailable Petznick, Idania M DO Primary Care Provider [phone]- [phone] Petznick, Idania M DO Unavailable [phone] Petznick, Idania M DO Primary Care Provider [phone] Petznick, Idania M DO Unavailable Encounter Details Date Type Department Care Team (Late st Contact Info) Description 04/14/2023 Abstract [facility] [address] [place] [address] Petjacy, Idania Mcfarlane, DO [address] [place] [address] Social History Tobacco Use Types Packs/Day Years [...] Description 07/10/2025 10:30 AM EST Office Visit [facility] [address] [place] [address] Diamante Mondragon, DPM [address] [place] [address] 07/24/2025 1:30 PM EST Office Visit [facility] [place] [facility] [address] [place] [address] Idania Gaston, DO [address] [place] [address] documented as of this encounter Visit Diagnoses Not on filedocumented in this encounter Care Teams Artillery Officer Relationship Specialty Start Date End Date Idania Gaston, DO [address] [place] [address] PCP - [facility] 09/09/22 07/06/23 Idania Gaston, DO [address] [place] [address] PCP - General Family Medicine 03/02/23 09/19/23 Idania Gaston, DO [address] [place] [address] PCP - [facility] 02/04/23 11/13/23 Idania Gaston, DO [address] [place] [address] PCP - General Family Medicine 09/20/23 Idania Gaston, DO [address] [place] [address] PCP - [facility] 09/06/23 documented as of this encounter
--- OUTSIDE RECORDS SUMMARY | 2025-06-16 09:15 | XMS_ITS | Encounter Summary ---
Author Organization [facility] Address [address] [place] [address] Care Team Providers Care Leather Leveler Name Role Phone Idania Gaston DO Primary Care Provider +- [phone] Idania Gaston DO Unavailable [phone] Encounter Details Date Type Department Care Team (Late st Contact Info) Description 04/20/2025 Abstract [facility] [place] [facility] [address] [facility] [address] [place] [address] Idania Gaston, DO [address] [facility] [address] [place] [address] Social History Tobacco Use Types Packs/Day Years [...] week 12/05/2024 How often do you attend [facility] or evangelical services? 1 to 4 times per year 12/05/2024 Do you belong to any clubs o r organizations such as adventist groups, unions, fraternal or athletic groups, or [...] Patient Health Questionnaire-2 Score 0 10/02/2024 [facility]at ional Health - Occupational [...] [address] [place] [address] Diamante Mondragon DPM [address] [place] [address] 07/24/2025 1:30 PM EST Office Visit [facility] [address] [place] [address] Idania Gaston DO [address] [place] [address] documented as of this encounter Visit Diagnoses Not on filedocumented in this encounter Care Teams Leather Leveler Relationship Specialty Start Date End Date Idania Gaston DO [address] [place] [address] PCP - General Family Medicine 09/20/23 Idania Gaston DO [address] [place] [address] PCP - [facility] 09/06/23 documented as of this encounter
--- OUTSIDE RECORDS SUMMARY | 2025-06-16 09:15 | XMS_ITS | Encounter Summary ---
Author Organization [facility] Address [address] [place] [address] Care Team Providers Care Aligning Checker Name Role Phone Idania Gaston DO Primary Care Provider +- [phone] Idania Gaston DO Unavailable [phone] Encounter Details Date Type Department Care Team (Late st Contact Info) Description 03/26/2025 Abstract [facility] [place] [facility] [address] [facility] [address] [place] [address] Idania Gaston, DO [address] [facility] [address] [place] [address] Social History Tobacco Use Types Packs/Day Years [...] often do you attend [facility] or jainism services? 1 to 4 [...] 0 10/02/2024 [facility] Occupat ional Health - Occupational Stress [...] were you homeless or living in a [place] health care facility (including now)? No 12/05/2024 Sex and Gender [...] [address] [place] [address] Diamante Mondragon DPM [address] [place] [address] 07/24/2025 1:30 PM EST Office Visit [facility] [address] [place] [address] Idania Gaston DO [address] [place] [address] documented as of this encounter Visit Diagnoses Not on filedocumented in this encounter Care Teams Aligning Checker Relationship Specialty Start Date End Date Idania Gaston DO [address] [place] [address] PCP - General Family Medicine 09/20/23 Idania Gaston DO [address] [place] [address] PCP - [facility] 09/06/23 documented as of this encounter
--- OUTSIDE RECORDS SUMMARY | 2025-06-16 09:15 | XMS_ITS | Encounter Summary ---
Author Organization [facility] Address [address] [place] [address] Care Team Providers Care Weed Sprayer Name Role Phone Idania Gaston DO Primary Care Provider +- [phone] Idania Gaston DO Unavailable [phone] Encounter Details Date Type Department Care Team (Late st Contact Info) Description 05/15/2025 Abstract [facility] [place] [facility] [address] [facility] [address] [place] [address] Idania Gaston, DO [address] [facility] [address] [place] [address] Social History Tobacco Use Types Packs/Day Years [...] week 12/05/2024 How often do you attend [facility] or adventism services? 1 to 4 times per year [...] Health Questionnaire-2 Score 0 10/02/2024 [facility] of Occupat ional Health - Occupational [...] [address] [place] [address] Diamante Mondragon DPM [address] [place] [address] 07/24/2025 1:30 PM EST Office Visit [facility] [address] [place] [address] Idania Gaston DO [address] [place] [address] documented as of this encounter Visit Diagnoses Not on filedocumented in this encounter Care Teams Weed Sprayer Relationship Specialty Start Date End Date Idania Gaston DO [address] [place] [address] PCP - General Family Medicine 09/20/23 Idania Gaston DO [address] [place] [address] PCP - [facility] 09/06/23 documented as of this encounter
--- OUTSIDE RECORDS SUMMARY | 2025-06-16 09:15 | XMS_ITS | Encounter Summary ---
Author Organization [facility] Address [address] [place] [address] Care Team Providers Care Director Of Student Life Name Role Phone Idania Gaston DO Primary Care Provider +- [phone] Idania Gaston DO Unavailable [phone] Encounter Details Date Type Department Care Team (Late st Contact Info) Description 02/06/2025 Abstract [facility] [place] [facility] [address] [facility] [address] [place] [address] Idania Gaston, DO [address] [facility] 230 [place] [address] Social History Tobacco Use Types Packs/Day Years [...] week 12/05/2024 How often do you attend [facility] or yazdanism services? 1 to 4 times per year [...] 10/02/2024 [facility] of Occupat ional Health - Occupational Stress [...] [address] [place] [address] Diamante Mondragon DPM [address] [place] [address] 07/24/2025 1:30 PM EST Office Visit [facility] [address] [place] [address] Idania Gaston DO [address] [place] [address] documented as of this encounter Visit Diagnoses Not on filedocumented in this encounter Care Teams Director Of Student Life Relationship Specialty Start Date End Date Idania Gaston DO [address] [place] [address] PCP - General Family Medicine 09/20/23 Idania Gaston DO [address] [place] [address] PCP - [facility] 09/06/23 documented as of this encounter
--- OUTSIDE RECORDS SUMMARY | 2025-06-16 09:15 | XMS_ITS | Encounter Summary ---
Author Organization [facility] Address [address] [place] [address] Care Team Providers Care Ladies Underwear Operator Name Role Phone Idania Gaston DO Primary Care Provider +- [phone] Idania Gaston DO Unavailable [phone] Encounter Details Date Type Department Care Team (Late st Contact Info) Description 05/15/2025 Abstract [facility] [place] [facility] [address] [facility] [address] [place] [address] Idania Gaston, DO [address] [facility] 230 [place] [address] Social History Tobacco Use Types Packs/Day Years [...] How often do you attend [facility] or samaritan services? 1 to 4 times [...] Recorded Patient Health Questionnaire-2 Score 0 10/02/2024 [facility] of Occupat ional Health - [...] [address] [place] [address] Diamante Mondragon DPM [address] [place] [address] 07/24/2025 1:30 PM EST Office Visit [facility] [address] [place] [address] Idania Gaston DO [address] [place] [address] documented as of this encounter Visit Diagnoses Not on filedocumented in this encounter Care Teams Ladies Underwear Operator Relationship Specialty Start Date End Date Idania Gaston DO [address] [place] [address] PCP - General Family Medicine 09/20/23 Idania Gaston DO [address] [place] [address] PCP - [facility] 09/06/23 documented as of this encounter
--- OUTSIDE RECORDS SUMMARY | 2025-06-16 09:15 | XMS_ITS | Encounter Summary ---
Author Organization [facility] tem Address [facility] [place]-[id number] [address] [place] [address] Care Team Providers Care Remote Control Mirror Installer Name Role Phone Chintan Quinn DO Primary Care Provider [phone] Encounter Details Date Type Department Care Team (Late st Contact Info) Description 06/08/2025 Results Follow-Up [facility] - Pain Procedures [address] [place] [address] Tyshawn Jacobson MD [address] [place], [place] [id number] Bedside Glucose *Place/Obtain serum glucose if >500 [...] [facility] Family Medicine [address] [place] [phone] Chintan Quinn DO [address] [facility] [address], [place] [address] 06/28/2025 2:30 PM EDT Office Visit [facility] - [facility] Management Clinic [address] [place] [address] Maciej Roldan PA [address] [facility], 2nd [place] [address] documented as of this encounter Visit Diagnoses Not on filedocumented in this encounter Additional Health Concerns Assessment Noted Time PHQ-9 Depression Total Score: 0 05/17/20 10:31 AM EDT A Body Mass Index follow-up plan has been documented for the patient 05/19/2025 9:44 PM EDT documented as of this encounter Care Teams Remote Control Mirror Installer Relationship Specialty Start Date End Date Chintan Quinn DO [address] [facility], [place] [address] PCP - General Family Medicine 05/17/25 documented as of this encounter
--- OUTSIDE RECORDS SUMMARY | 2025-06-16 09:15 | XMS_ITS | Encounter Summary ---
Author Organization [facility] Address [address] [place] [address] Care Team Providers Care Spout Liner Helper Name Role Phone Idania Gaston DO Unavailable Petznick, Idania M DO Primary Care Provider [phone] Petznick, Idania M DO Unavailable [phone] Petznick, Idania M DO Primary Care Provider [phone] Petznick, Idania M DO Unavailable [phone] Encounter Details Date Type Department Care Team (Late st Contact Info) Description 03/03/2023 Abstract [facility] [address] [place] [address] Petjacy, Idania Mcfarlane, DO [address] [place] [address] Social History Tobacco Use Types [...] Podiatry [address] [place] [address] Diamante Mondragon, DPM [address] [place] [address] 07/24/2025 1:30 PM EST Office Visit [facility] [place] [facility] [address] [place] [address] Idania Gaston, DO [address] [place] [address] documented as of this encounter Visit Diagnoses Not on filedocumented in this encounter Care Teams Spout Liner Helper Relationship Specialty Start Date End Date Idania Gaston, DO [address] [place] [address] PCP - [facility] 09/09/22 07/06/23 Idania Gaston, DO [address] [place] [address] PCP - General Family Medicine 03/02/23 09/19/23 Idania Gaston, DO [address] [place] [address] PCP - Medical [place] [employer] 02/04/23 11/13/23 Idania Gaston, DO [address] [place] [address] PCP - General Family Medicine 09/20/23 Idania Gaston, DO [address] [place] [address] PCP - [facility] 09/06/23 documented as of this encounter
--- OUTSIDE RECORDS SUMMARY | 2025-06-16 09:15 | XMS_ITS | Encounter Summary ---
Author Organization [facility] Address [address] [place] [address] Care Team Providers Care Head Char Filter Tank Tender Name Role Phone Idania Gaston DO Primary Care Provider [phone] Idania Gaston DO Unavailable [phone] Reason for Visit * Reason Comments Med Refill Encounter Details Date Type Department Care Team (Late st Contact Info) Description 05/02/2024 Refill [facility] [place] [facility] [address] [facility] [address] [place] [address] Idania Gaston DO [address] [place] [address] Type 2 diabetes mellitus with peripheral neuropathy [...] [address] [place] [address] Diamante Mondragon DPM [address] [place] [address] 07/24/2025 1:30 PM EST Office Visit [facility] [place] [facility] [address] [place] [address] Idania Gaston DO [address] [place] [address] documented as of this encounter Visit Diagnoses Diagnosis Type 2 diabetes mellitus with peripheral neuropathy (HCC) documented in this encounter Care Teams Head Char Filter Tank Tender Relationship Specialty Start Date End Date Idania Gaston DO [address] [place] [address] PCP - General Family Medicine 09/20/23 Idania Gaston DO [address] [place] [address] PCP - [facility] 09/06/23 documented as of this encounter
--- OUTSIDE RECORDS SUMMARY | 2025-06-16 09:15 | XMS_ITS | Encounter Summary ---
Author Organization [facility] Address [address] [place] [address] Care Team Providers Care Manager Audit Name Role Phone Idania Gaston DO Primary Care Provider +- [phone] Idania Gaston DO Unavailable [phone] Encounter Details Date Type Department Care Team (Late st Contact Info) Description 03/26/2025 Abstract [facility] [place] [facility] [address] [facility] [address] [place] [address] Idania Gaston, DO [address] [facility] [address] [place] [address] Social History Tobacco Use Types Packs/Day Years [...] week 12/05/2024 How often do you attend [facility] or temple services? 1 to 4 times per year 12/05/2024 Do you belong to any clubs o r organizations such as congregational groups, unions, fraternal or athletic groups, or [...] 0 10/02/2024 [facility]at ional [facility] - [...] [address] [place] [address] Diamante Mondragon DPM [address] [place] [address] 07/24/2025 1:30 PM EST Office Visit [facility] [address] [place] [address] Idania Gaston DO [address] [place] [address] documented as of this encounter Visit Diagnoses Not on filedocumented in this encounter Care Teams Manager Audit Relationship Specialty Start Date End Date Idania Gaston DO [address] [place] [address] PCP - General Family Medicine 09/20/23 Idania Gaston DO [address] [place] [address] PCP - [facility] 09/06/23 documented as of this encounter
--- OUTSIDE RECORDS SUMMARY | 2025-06-16 09:15 | XMS_ITS ---
Author Organization [facility] Address [address] [facility] [place] [address] Care Team Providers Care Osteopathic Physician Name Role Phone Idania Gaston DO Primary Care Provider [phone] Ignacio Clay MD Unavailable [phone] Adams Tate RECORD CHANGER TESTER Unavailable [phone] Delano Bardales MD Unavailable Sivan Keller MD Unavailable Desire Bueno RECORD CHANGER TESTER Unavailable Unavailabl e Transplant Episode Kidney Candidate [facility] ([place], [place]) - [facility] Evaluation began on 10/12/2019 Marked as Active on 04/07/2022 Kidney CoordinatorMelinda Hidalgo RN Phone: N/A Fax: N/A Email: N/A Scores Score Value Updated Exceptions/Reas ons CPRA Not available EPTS (Calc) 68 06/16/2025 Infection History Noted Survival Infection Treatment Organism Resolved 06/14/2024 COVID-19 03/02/2023 Osteomyelitis of left foot ([facility]/HCC) 07/28/2019 Osteomyelitis ([facility]) Care Team Name Role Phone Fax Email Melinda Hidalgo, JACOB Kidney Coordinator N/A N/A N/A Ada Uriostegui MD Referring Physician [phone] N/A Melinda Avendano Txp Mine Promotor N/A N/A N/A Delano Bardales MD Surgeon [phone] N/A Gisele Wharton Txp Mine Promotor N/A N/A N/A Sadny Morris MD Vice President Global Advertising Sales [phone] N/A Events Pre-Transplant Referred: 06/29/2019 Evaluation began: 10/12/2019 Committee: 03/22/2023 Dialysis History Dialysis History Start End Type Comments Center 03/06/2023 Hemo [facility] 11/23/2022 03/06/2023 Peritoneal [facility] Dialysis Center Information Center Phone Fax Address [facility] [phone] [address] [place] [address] [facility] [place]. [phone] [address] [facility] [facility] [address]
--- OUTSIDE RECORDS SUMMARY | 2025-06-16 09:15 | XMS_ITS | Encounter Summary ---
Author Organization [facility] Address [address] [facility] [place] [address] Care Team Providers Care Bakery Associate Name Role Phone Idania Gaston DO Unavailable [phone] Petznick, Idania Mcfarlane DO Primary Care Provider [phone] Petznick, Idania Mcfarlane DO Unavailable [phone] Petznick, Idania Mcfarlane DO Primary Care Provider Petznick, Idania Mcfarlane DO Unavailable Encounter Details Date Type Department Care Team (Late st Contact Info) Description 06/22/2023 Telephone [facility] [address] [phone] Jaspreet Jones MD [address] [address] Social History Tobacco Use Types [...] Podiatry [address] [place] [address] Diamante Mondragon DPM [address] [place] [address] 07/24/2025 1:30 PM EST Office Visit [facility] [address] [place] [address] Idania Gaston DO [address] [place] [address] documented as of this encounter Visit Diagnoses Not on filedocumented in this encounter Care Teams Bakery Associate Relationship Specialty Start Date End Date Idania Gaston DO [address] [place] [address] PCP - [facility] 09/09/22 07/06/23 Idania Gaston DO [address] [place] [address] PCP - General Family Medicine 03/02/23 09/19/23 Idania Gaston, [address] [place] [address] PCP - Medical [place] [employer] 02/04/23 11/13/23 Idania Gaston DO [address] [place] [address] PCP - General Family Medicine 09/20/23 Idania Gaston DO [address] [address] [address] PCP - [facility] 09/06/23 documented as of this encounter
--- OUTSIDE RECORDS SUMMARY | 2025-06-16 09:15 | XMS_ITS | Encounter Summary ---
Author Organization [facility] Address [address] [place] [address] Care Team Providers Care Dispatcher Bus And Trolley Name Role Phone Idania Gaston DO Primary Care Provider [phone]- [phone] Idania Gaston DO Unavailable [phone] Encounter Details Date Type Department Care Team (Late st Contact Info) Description 03/07/2025 Abstract [facility] [place] [facility] [address] [facility] [address] [place] [address] Idania Gaston, DO [address] [facility] [address] [place] [address] Social History Tobacco Use Types Packs/Day Years [...] 12/05/2024 How often do you attend [facility] or synagogue services? 1 to 4 times [...] 10/02/2024 [facility]at ional [facility] - [...] [address] [place] [address] Diamante Mondragon DPM [address] [place] [address] 07/24/2025 1:30 PM EST Office Visit [facility] [address] [place] [address] Idania Gaston DO [address] [place] [address] documented as of this encounter Visit Diagnoses Not on filedocumented in this encounter Care Teams Dispatcher Bus And Trolley Relationship Specialty Start Date End Date Idania Gaston DO [address] [place] [address] PCP - General Family Medicine 09/20/23 Idania Gaston DO [address] [place] [address] PCP - [facility] 09/06/23 documented as of this encounter
--- OUTSIDE RECORDS SUMMARY | 2025-06-16 09:15 | XMS_ITS | Encounter Summary ---
Author Organization [facility] Address [address] [place] [address] Care Team Providers Care Pearl Peller Name Role Phone Idania Gaston DO Primary Care Provider +- [phone] Idania Gaston DO Unavailable [phone] Encounter Details Date Type Department Care Team (Late st Contact Info) Description 04/20/2025 Abstract [facility] [place] [facility] [address] [facility] [address] [place] [address] Idania Gaston, DO [address] [facility] [address] [place] [address] Social History Tobacco Use Types Packs/Day Years [...] week 12/05/2024 How often do you attend [facility] or latter-day services? 1 to 4 [...] Questionnaire-2 Score 0 10/02/2024 [facility] Occupat ional Health - Occupational Stress [...] [address] [place] [address] Diamante Mondragon DPM [address] [place] [address] 07/24/2025 1:30 PM EST Office Visit [facility] [address] [place] [address] Idania Gaston DO [address] [place] [address] documented as of this encounter Visit Diagnoses Not on filedocumented in this encounter Care Teams Pearl Peller Relationship Specialty Start Date End Date Idania Gaston DO [address] [place] [address] PCP - General Family Medicine 09/20/23 Idania Gaston DO [address] [place] [address] PCP - [facility] 09/06/23 documented as of this encounter
--- OUTSIDE RECORDS SUMMARY | 2025-06-16 09:15 | XMS_ITS | Patient Health Record ---
Author Organization [facility] Address [address] [place] [address] Care Team Providers Care Home Care Music Therapist Name Role Phone Herojacy Idania CALABRESE Primary Care Provider Ajay tongAdebayo Courtney Unavailable [phone] Allergies Allergen (clinical drug ingredient) Drug/Non Drug Allergy documented on EMR Reaction Allergy Type Onset Date Status Latex Latex Unknown Allergy Active vancomycin Vancomycin Unknown Drug Allergy Activ e Results Component Value Reference Range Notes BUN Reviewed date:01/01/2025 10:04:21 AM Interpretation: Performing Lab:[facility] ([facility]), [address] [place], [place] [address]E., [address] [address] PH:[phone] Notes/Report: BLOOD UREA NITROGEN 58 5-23 mg/dL PERFORME D AT [address] [address] BUN Reviewed date:01/01/2025 10:05:13 AM Interpretation: Performing Lab:[facility] ([facility]), [address] [place] [address] AVE[address] [address] PH:[phone] Notes/Report: BLOOD UREA NITROGEN 112 5-23 mg/dL PERFORME D AT [address] [address] Reason For Referral No Information Medications Medication [...] Problem Status W/U Status Risk Notes Problem Polyneuropathy due to type 2 diabetes mellitus (081540443) Type 2 diabetes mellitus with diabetic polyneuropathy (E11.42) Active confirmed Problem Foot ulcer due to type 2 diabetes mellitus (1508088062869) Type 2 diabetes mellitus with foot ulcer (E11.621) Active confirmed Problem Non-pressure chronic ulcer of other part of right foot with fat layer exposed (L97.512) Active confirmed Problem Arthropathy associated with a neurological disorder (76340473) Charcot's joint, unspecified site (M14.60) Active confirmed Problem Arthropathy associated with a neurological disorder (88284491) Charcot's joint, unspecified ankle and foot (M14.679) Active confirmed Problem End stage renal disease (47090648) End stage renal disease (N18.6) Active confirmed Encounters Encounter Location Date Provider Diagnosis [facility] [place] [address] [place] [address] 04/26/2025 Adebayo Rosado Plan Of Treatment No Information Insurance Providers Payer Name Payer Address Payer Phone Subscriber Number Group Number Insured Name Patient Relationship to Insured Coverage Start Date Coverage End Date [facility] PRIMARY MEDICARE [address] [place] [address] [id number] Mina Savage Self - patient is the insured 4 MEDICAID [place] 2ND INS [address] OFFICE OF [place], [place] [id number] Mina Forte Self - patient is the insured 8 Medical (General) History Medical History History ICD Code diabetes mellitus Surgical History Surgery Date(Month/Year) 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
--- OUTSIDE RECORDS SUMMARY | 2025-06-16 09:15 | XMS_ITS | Encounter Summary ---
Author Organization [facility] Address [address] [place] [address] Care Team Providers Care Political Anthropologist Name Role Phone Idania Gaston DO Primary Care Provider +- [phone] Idania Gaston DO Unavailable [phone] Encounter Details Date Type Department Care Team (Late st Contact Info) Description 01/01/2025 Abstract [facility] [place] [facility] [address] [facility] [address] [place] [address] Idania Gaston, DO [address] [facility] [address] [place] [address] Social History Tobacco Use Types Packs/Day Years [...] Patient Health Questionnaire-2 Score 0 10/02/2024 [facility] of Occupat ional Health - Occupational [...] [address] [place] [address] Diamante Mondragon DPM [address] [place] [address] 07/24/2025 1:30 PM EST Office Visit [facility] [address] [place] [address] Idania Gaston DO [address] [place] [address] documented as of this encounter Visit Diagnoses Not on filedocumented in this encounter Care Teams Political Anthropologist Relationship Specialty Start Date End Date Idania Gaston DO [address] [place] [address] PCP - General Family Medicine 09/20/23 Idania Gaston DO [address] [place] [address] PCP - [facility] 09/06/23 documented as of this encounter
--- OUTSIDE RECORDS SUMMARY | 2025-06-16 09:15 | XMS_ITS | Encounter Summary ---
Author Organization [facility] Address [address] [place] [address] Care Team Providers Care Ground Wood Supervisor Name Role Phone Idania Gaston DO Primary Care Provider +- [phone] Idania Gaston DO Unavailable [phone] Encounter Details Date Type Department Care Team (Late st Contact Info) Description 03/27/2025 Abstract [facility] [place] [facility] [address] [facility] [address] [place] [address] Idania Gaston, DO [address] [facility] [address] [place] [address] Social History Tobacco Use Types Packs/Day Years [...] week 12/05/2024 How often do you attend [facility] or lutheran services? 1 to 4 times per year [...] Score 0 10/02/2024 [facility] of Occupat ional Health - Occupational [...] [address] [place] [address] Diamante Mondragon DPM [address] [place] [address] 07/24/2025 1:30 PM EST Office Visit [facility] [address] [place] [address] Idania Gaston DO [address] [place] [address] documented as of this encounter Visit Diagnoses Not on filedocumented in this encounter Care Teams Ground Wood Supervisor Relationship Specialty Start Date End Date Idania Gaston DO [address] [place] [address] PCP - General Family Medicine 09/20/23 Idania Gaston DO [address] [place] [address] PCP - [facility] 09/06/23 documented as of this encounter
--- OUTSIDE RECORDS SUMMARY | 2025-06-16 09:15 | XMS_ITS | Encounter Summary ---
Author Organization [facility] Address [address] [place] [address] Care Team Providers Care Commercial Manager Name Role Phone Idania Gaston DO Primary Care Provider +- [phone] Idania Gaston DO Unavailable [phone] Encounter Details Date Type Department Care Team (Late st Contact Info) Description 01/03/2025 Abstract [facility] [place] [facility] [address] [facility] [address] [place] [address] Idania Gaston, DO [address] [facility] [address] [place] [address] Social History Tobacco Use Types Packs/Day Years [...] week 12/05/2024 How often do you attend [facility] or restorationism services? 1 to 4 times per year [...] [address] [place] [address] Diamante Mondragon DPM [address] [place] [address] 07/24/2025 1:30 PM EST Office Visit [facility] [address] [place] [address] Idania Gaston DO [address] [place] [address] documented as of this encounter Visit Diagnoses Not on filedocumented in this encounter Care Teams Commercial Manager Relationship Specialty Start Date End Date Idania Gaston DO [address] [place] [address] PCP - General Family Medicine 09/20/23 Idania Gaston DO [address] [place] [address] PCP - [facility] 09/06/23 documented as of this encounter
--- OUTSIDE RECORDS SUMMARY | 2025-06-16 09:15 | XMS_ITS | Encounter Summary ---
Author Organization [facility] Address [address] [place] [address] Care Team Providers Care Access Clinician Name Role Phone Idania Gaston DO Primary Care Provider [phone]- [phone] Idania Gaston DO Unavailable [phone] Encounter Details Date Type Department Care Team (Late st Contact Info) Description 06/07/2025 External Result Encounter [facility] External Department Unsolicited Idania Gaston, DO [address] [place] [address] Social History Tobacco Use Types Packs/Day Years [...] any clubs o r organizations such as mandaen groups, unions, fraternal or athletic groups, or [...] Recorded Patient Health Questionnaire-2 Score 0 05/22/2025 [facility] - Occupational Stress Questionnaire Answer Date Recorded [...] [address] [place] [address] Diamante Mondragon DPM [address] [place] [address] 07/24/2025 1:30 PM EST Office Visit [facility] [address] [place] [address] Idania Gaston DO [address] [place] [address] documented as of this encounter Procedures Procedure Name Priority Date/Time Associated Diagnosis Comments TSH ([facility]) Routine 06/07/2025 1:15 PM EDT PROSTATIC SPECIFIC ANTIGEN, SCREEN ([facility]) Routine 06/07/2025 1:15 PM EDT CBC WITH AUTO DIFFERENTIAL Routine 06/07/2025 1:15 PM EDT LIPID PANEL Routine 06/07/2025 1:15 PM EDT COMPREHENSIVE METABOLIC PANEL Routine 06/07/2025 1:15 PM EDT documented in this encounter Results * TSH ([facility]) (06/07/2025 1:15 PM EDT) Pathologist [facility] TSH 1.97 0.49 - 4.67 uIU/mL [facility] Comment: PERFORMED AT [address], [place] [address] 06/07/2025 1:15 PM EDT 06/07/2025 5:25 PM EDT Idania Gaston DO LAB BLOOD ORDERABLES Final Result [facility] * PROSTATIC SPECIFIC ANTIGEN, SCREEN ([facility]) (06/07/2025 1:15 PM EDT) Pathologist [facility] PROSTATIC SPEC ANT 0.75 0.00 - 4.00 ng/mL [facility] Comment: The method used for this test is Tevin [employer] DXI chemiluminescent immunoassay. Values obtained by different assay methods cannot be used interchangeably. PERFORMED AT [address], [place] [address] 06/07/2025 1:15 PM EDT 06/07/2025 5:25 PM EDT Idania Gaston LAB BLOOD ORDERABLES Final Result [facility] * (ABNORMAL) Lipid panel (06/07/2025 1:15 PM EDT) Pathologist [facility] CHOLESTEROL 140(L) 150 - 200 mg/dL [facility] TRIGLYCERIDE 139 27 - 150 mg/dL [facility] HDL CHOLESTEROL 44 >39 mg/dL [facility] Comment: HDL <40 mg/dL - High Risk HDL > or = 40mg/dL- Desirable HDL >60 mg/dL - Negative Risk LDL (CALC) 68 <130 mg/dL [facility] Comment: LDL <100 mg/dL - Desirable LDL >160 mg/dL - High Risk CHOLESTEROL:HDL 3.2 1.0 - 5.0 NA [facility] VERY LOW LIPOPROTEIN 28 0 - 30 mg/dL [facility] Comment: PERFORMED AT [address] [address] 06/07/2025 1:15 PM EDT 06/07/2025 5:25 PM EDT Idania M Marilin DO LAB BLOOD ORDERABLES Final Result [facility] * (ABNORMAL) Comprehensive metabolic panel (06/07/2025 1:15 PM EDT) [facility] Sodium 145 134 - 146 mmol/L [facility] Potassium, Bld 5.2(H) 3.5 - 5.0 mmol/L [facility] Chloride 100 98 - 109 mmol/L [facility] Carbon Dioxide 32 22 - 32 mmol/L [facility] Anion Gap 13 5 - 15 mmol/L [facility] BUN 48(H) 5 - 23 mg/dL [facility] Creatinine 7.52(H) 0.60 - 1.30 mg/dL [facility] Comment:METHOD TRACEABLE TO IDMS STANDARD Glucose 92 65 - 99 mg/dL [facility] Calcium 8.8 8.5 - 10.5 mg/dL [facility] TOTAL PROTEIN 6.8 6.0 - 8.0 g/dL [facility] ALBUMIN 3.8 3.2 - 5.3 g/dL [facility] ALKALINE PHOSPHATASE 89 39 - 130 U/L [facility] AST 8 <=41 U/L [facility] ALT 11 <=40 U/L [facility] TOTAL BILIRUBIN 0.3 0.3 - 1.2 mg/dL [facility] EGFR 8(L) >=60 ml/min/1.7 3sq.m [facility] Comment: Reported eGFR is based on the CKD-EPI 2020 equation that does not use a race coefficient. PERFORMED AT [facility] [address] [address] 06/07/2025 1:15 PM EDT 06/07/2025 5:25 PM EDT Idania Gaston DO LAB BLOOD ORDERABLES Final Result [facility] * (ABNORMAL) CBC auto differential (06/07/2025 1:15 PM EDT) WHITE BLOOD CELL COUNT, WBC 7.9 4 - 11 x10E9/L [facility] RED BLOOD CELL COUNT, RBC 3.44(L) 4.1 - 5.7 X10E12/L [facility] HEMOGLOBIN 10.7(L) 13 - 17 g/dL [facility] HEMATOCRIT 32.0(L) 39 - 50 % [facility] MEAN CELL VOLUME, MCV 93 80 - 100 fL [facility] MEAN CELL HEMOGLOBIN, MCH 31.0 27 - 34 pg [facility] MEAN CELL HEMOGLOGIN CONCENTRATION, MCHC 33.3 32 - 36 g/dL [facility] RED CELL DISTRIBUTION WIDTH, RDW 15.9(H) 11.5 - 15 % [facility] PLATELET COUNT 232 150 - 450 X10E9/L [facility] MEAN PLATELET VOLUME, MPV 7.9 7 - 12 fL [facility] MYELOCYTE 2 % [facility] Comment:This is an appended report. These results have been appended to a previously preliminary verified report. CELLAVISION NEUTROPHILS RELATIVE PERCENT BY MANUAL COUNT 70 % [facility] Comment:This is an appended report. These results have been appended to a previously preliminary verified report. CELLAVISION LYMPHOCYTES RELATIVE PERCENT BY MANUAL COUNT 15 % [facility] Comment:This is an appended report. These results have been appended to a previously preliminary verified report. CELLAVISION MONOCYTES RELATIVE PERCENT BY MANUAL COUNT 10 % [facility] Comment:This is an appended report. These results have been appended to a previously preliminary verified report. CELLAVISION EOSINOPHILS PERCENT BY MANUAL COUNT 2 % [facility] Comment:This is an appended report. These results have been appended to a previously preliminary verified report. CELLAVISION BASOPHILS RELATIVE PERCENT BY MANUAL COUNT 1 % [facility] Comment:This is an appended report. These results have been appended to a previously preliminary verified report. CELLAVISION NEUTROPHILS ABSOLUTE COUNT BY MANUAL COUNT 5.4 1.5 - 6.6 10*3/uL [facility] Comment:This is an appended report. These results have been appended to a previously preliminary verified report. CELLAVISION LYMPHOCYTES ABSOLUTE COUNT (10*3/UL) BY MANUAL COUNT 1.2 1.0 - 3.5 10*3/uL [facility] Comment:This is an appended report. These results have been appended to a previously preliminary verified report. CELLAVISION MONOCYTES ABSOLUTE COUNT (10*3/UL) IN BLOOD BY MANUAL COUNT 0.8 0.0 - 0.9 10*3/uL [facility] Comment:This is an appended report. These results have been appended to a previously preliminary verified report. CELLAVISION EOSINOPHILS ABSOLUTE COUNT (10*3/UL) BY MANUAL COUNT 0.2 0.0 - 0.4 10*3/uL [facility] Comment:This is an appended report. These results have been appended to a previously preliminary verified report. CELLAVISION BASOPHILS ABSOLUTE COUNT (10*3/UL) BY MANUAL COUNT 0.1 0.0 - 0.2 10*3/uL [facility] Comment:This is an appended report. These results have been appended to a previously preliminary verified report. POLYCHROMASIA 1+ [facility] Comment:This is an appended report. These results have been appended to a previously preliminary verified report. DIFFERENTIAL TYPE MANUAL DIFFERENTIAL [facility] Comment: This is an appended report. These results have been appended to a previously preliminary verified report. PERFORMED AT [facility] [address],[place] [address] 06/07/2025 1:15 PM EDT 06/07/2025 5:25 PM EDT Idania Gaston DO LAB BLOOD ORDERABLES Final Result [facility] documented in this encounter Visit Diagnoses Not on filedocumented in this encounter Care Teams Access Clinician Relationship Specialty Start Date End Date Idania Gaston DO [address] [place] [address] PCP - General Family Medicine 09/20/23 Idania Gaston DO [address] [place] [address] PCP - [facility] 09/06/23 documented as of this encounter
--- OUTSIDE RECORDS SUMMARY | 2025-06-16 09:15 | XMS_ITS | Clinical Summary ---
Author Organization [facility] Address [address] [place] [address] Care Team Providers Care Tyre Builder Name Role Phone Idania Gaston DO Primary Care Provider [phone] Idania Gaston DO Unavailable [phone] Allergies Active Allergy Reactions Criticality Noted Date Comments Haloperidol Anxiety Low 09/25/2023 Latex Rash Medium 06/18/2022 Other Reaction(s): Unknown If on for long periods of time [place] Oil GI intolerance Low 06/16/2018 Runny nose, watery eyes Vancomycin Hives 02/28/2023 Wound Dressing Adhesive Rash Low 05/02/2022 Medications anastrozole (Arimidex) 1 MG chemo tablet take 1 tablet by mouth every morning (SWALLOW WHOLE WITH A DRINK OF WATER) 023 Active calcitriol (Rocaltrol) 0.25 MCG capsule Take 0.25 mcg by mouth in the morning. 023 Active carvedilol (Coreg) 12.5 MG tablet Take 12.5 mg by mouth in the morning and 12.5 mg in the evening. Take with meals. Active cholecalciferol (D3-5) 5,000 Units tablet Daily. A ctive b complex-folic acid tablet Take 1 tablet by mouth Daily Active Continuous Blood Gluc Sensor (Dexcom G7 Sensor) misc as directed every 10 days for 90 days 023 Active Continuous Blood Gluc Watch Adjuster (Dexcom G7 Watch Adjuster) device 1 (one) time each day at the same time. 023 Active Xphozah 30 MG tablet Take 30 mg by mouth in the morning and 30 mg before bedtime. 024 Active glucagon (Gvoke HypoPen) 1 MG/0.2ML injection Inject 1 mg under the skin 1 (one) time if needed for low blood sugar 024 Active aspirin 81 MG chewable tablet Chew 81 mg in the morning. 024 06/22 Active cyanocobalamin (Vitamin B-12) 1000 MCG tablet Daily 024 Active sevelamer carbonate (Renvela) 800 MG tablet TAKE 2 TABLETS BY MOUTH THREE TIMES DAILY WITH MEALS 024 Active midodrine (Proamatine) 10 MG tablet TAKE 1 TABLET BY MOUTH NEEDED DURING DIALYSIS FOR BLOOD PRESSURE SUPPORT 025 Active levothyroxine (Synthroid, Levoxyl) 100 MCG tabletIndications:Acqu ired hypothyroidism TAKE 1 TABLET BY MOUTH EVERY MORNING BEFORE A MEAL 90 tablet 025 Active atorvastatin (Lipitor) 20 MG tabletIndications:Pure hypercholesterolemia TAKE 1 TABLET(20 MG) BY MOUTH IN THE MORNING 90 tablet 3 025 Active bumetanide (Bumex) 2 MG tabletIndications:End stage renal disease (HCC) TAKE 1 TABLET(2 MG) BY MOUTH DAILY 30 tablet 025 Active calcium acetate (Phoslo) 667 MG tablet Take 667 mg by mouth in the morning and 667 mg at noon and 667 mg in the evening. Take with meals. 025 Active nortriptyline (Pamelor) 25 MG capsule Take 25 mg by mouth Daily 025 Active pregabalin (Lyrica) 150 MG capsuleIndications:Typ e 2 diabetes mellitus with peripheral neuropathy (HCC),Neuropathy Take 1 capsule (150 mg) by mouth in the morning and 1 capsule (150 mg) before bedtime. 60 capsule 3 025 Active insulin glargine (Lantus SoloStar) 100 UNIT/ML penIndications: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) Inject 60 Units under the skin Daily 30 mL 1 025 Active insulin lispro (HumaLOG KWIKPEN) 100 UNIT/ML injectionIndications:T ype 2 diabetes mellitus with Charcot's joint arthropathy (HCC) INJECT 15 UNITS UNDER THE SKIN WITH BREAKFAST, 30 UNITS WITH LUNCH AND DINNER AND 10-15 UNITS WITH SNACKS PLUS CORRECTION 2:30 > 150 mg/dl (MAX OF 100 UNITS DAILY) 30 mL 3 025 Active Testosterone 1.62 % gel apply 2 PUMPS topically every morning 023 05/22 Discontinued( Therapy completed) ondansetron ODT (Zofran-ODT) 4 MG disintegrating tabletIndications:Type 2 diabetes mellitus with foot ulcer, with long-term current use of insulin (HCC) Take 2 tablets (8 mg) by mouth every 8 (eight) hours if needed for nausea or vomiting 30 tablet 1 024 05/22 Discontinued( Therapy completed) traZODone (Desyrel) 50 MG tabletIndications:Prim yonatan insomnia TAKE 1 TABLET(50 MG) BY MOUTH AT BEDTIME 90 tablet 05/22 Discontinued( Therapy completed) Tirzepatide (Mounjaro) 10 MG/0.5ML solution auto-injectorIndicatio ns: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) Inject 10 mg under the skin 1 (one) time per week 6 mL 3 024 05/22 Discontinued( Ineffective) amitriptyline (Elavil) 10 MG tablet Take 20 mg by mouth at bedtime 05/22 Discontinued( Ineffective) LORazepam (Ativan) 1 MG tabletIndications:Anxi ety Take 1 tablet (1 mg) by mouth every 8 (eight) hours if needed for anxiety 10 tablet 05/22 Discontinued( Therapy completed) insulin lispro (HumaLOG KWIKPEN) 100 UNIT/ML injectionIndications:T ype 2 diabetes mellitus with Charcot's joint arthropathy (HCC) INJECT 10 UNITS UNDER THE SKIN WITH BREAKFAST, 25 UNITS WITH LUNCH AND DINNER AND 10-15 UNITS WITH SNACKS PLUS CORRECTION. MAX OF 100 UNITS DAILY 30 mL 3 025 05/23 Discontinued( Dose adjustment) pregabalin (Lyrica) 150 MG capsuleIndications:Carly ropathy,Type 2 diabetes mellitus with peripheral neuropathy (HCC) TAKE 1 CAPSULE BY MOUTH EVERY MORNING AND EVERY NIGHT AT BEDTIME 60 capsule 025 05/22 Discontinued( Reorder) insulin glargine (Lantus SoloStar) 100 UNIT/ML penIndications: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) ADMINISTER 50 UNITS UNDER THE SKIN IN THE MORNING 15 mL 025 05/23 Discontinued Active Problems Problem Noted Date Diagnosed [...] they have any problems or questions. Mina Wileywalski control is stable overall. , Discussed importance [...] peripheral neuropa thy 03/02/2023 Assessment & Plan (05/23/2025 8:55 PM EDT): During the appointment today all [...] they have any problems or questions. Mina Shen Jann blood sugars are worsening. , The patient is wearing their cgm on a daily basis and making decisions in regards to adjusting insulin daily as well for at least the last 60 days , Discussed dietary changes at length. Encouraged to limit simple carbs and focus more on healthy protein/fat with all meals and snacks. They should also avoid any sugary drinks. , Discussed importance of checking blood glucose regularly and bringing them in to their appointment in order for me to better adjust their medications. , Instructed on the importance of taking [...] scar tissue. , Instructions given today include: Insulin instructions and Dietary education. Will increase insulin to try and improve control. Gave him a sample dexcom so he can get back on this and once I get some readings I can better adjust his insulin. Assessment & Plan (12/05/2024 7:28 PM EDT): [...] 11/29/2023 Fatigue 10/13/2023 02/25/2024 Metabolic acidosis 10/13/2023 4 Proteinuria due to type 2 diabetes mellitus [...] 05/02/2022 02/25/2024 Open wound of left foot 05/02/202211/05 Overview (10/13/2023): s/p surgery and healing; completed healed. 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 09/28/2017 01/07/2024 Encounters Date Type Department Care Team Description 06/08/2025 Results Follow-Up [facility] [address] [place] [address] Idania Gaston DO CBC auto differential, Comprehensive metabolic panel, Lipid panel, Additional followed-up results: 2 06/07/2025 External Result Encounter [facility] External Department Unsolicited Idania Gaston DO 05/25/2025 Abstract [facility] [address] [place] [address] Idania Gaston DO 05/22/2025 4:00 PM EDT Office Visit [facility] [address] [place] [address] Idania Gaston, Medicare annual wellness visit, subsequent (Primary Dx); Type 2 diabetes mellitus with peripheral neuropathy (HCC); Acquired hypothyroidism ; Pure hypercholesterolemia ; Essential hypertension ; 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, with long-term current use of insulin (HCC); 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); Obstructive sleep apnea syndrome; Peripheral vascular disease; End stage renal disease (HCC); Chronic kidney disease with end stage renal disease on dialysis due to type 2 diabetes mellitus (HCC); Long-term insulin use (HCC); Hx of amputation of lesser toe, left (HHS-HCC); Dependence on renal dialysis ; Anxiety; Other iron deficiency anemia; Screening for prostate cancer; Neuropathy 05/22/2025 Travel 05/16/2025 Refill [facility] [address] [place] [address] Idania Gaston, 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); End stage renal disease (HCC) 05/15/2025 Abstract [facility] [address] [place] [address] Idania Gaston, 05/15/2025 Abstract [facility] [address] [place] [address] Idania Gaston, 05/14/2025 Refill [facility] [address] [place] [address] Idania Gaston, DO Neuropathy; Type 2 diabetes mellitus with peripheral neuropathy (HCC) 05/07/2025 Refill [facility] [address] [place] [address] Idania Gaston, End stage renal disease (HCC) 04/20/2025 Abstract [facility] [address] [place] [address] Idanai Gaston, DO 04/20/2025 Abstract [facility] [address] [place] [address] Idania Gaston, DO 04/13/2025 Refill [facility] [address] [place] [address] Idania Gaston, DO Neuropathy; Type 2 diabetes mellitus with peripheral neuropathy (HCC) 04/10/2025 Refill [facility] [address] [place] [address] Elizabeth Garcia MA Neuropathy; Type 2 diabetes mellitus with peripheral neuropathy (HCC) 04/09/2025 Abstract [facility] [address] [place] [address] Idania Gaston, DO 03/27/2025 Abstract [facility] [address] [place] [address] PetIdania louie, DO 03/27/2025 Abstract [facility] [address] [place] [address] Idania Gaston, DO 03/27/2025 Telephone [facility] [address] [place] [address] Magali Nazario MA Referral 03/26/2025 Abstract [facility] [address] [place] [address] Idania Gaston, DO 03/26/2025 Abstract [facility] [address] [place] [address] Idania Gaston, DO from Last 3 Months Immunizations Immunization Administration [...] often do you attend chur ch or bahai services? 1 to 4 times [...] Recorded Patient Health Questionnaire-2 Score 0 05/22/2025 [facility] - Occupational Stress Questionnaire Answer [...] any time in the past 12 m [facility], were you homeless or living in a [place] health care facility (including now)? No 12/05/2024 Sex and Gender Information Value Date Recorded Sex Assigned at Not on file Legal Sex Male 7:11 PM EDT Gender Identity Not on file Sexual Orientation Not on file Last Filed Vital Signs Vital Sign Reading Time Taken Comments Blood Pressure 148/82 05/22/2025 3:36 PM EDT Pulse 76 05/22/2025 3:36 PM EDT Temperature 37.1 C (98.8 F) 05/22/2025 3:36 PM EDT Respiratory Rate - - Oxygen Saturation 95% 05/22/2025 3:36 PM EDT Inhaled Oxygen Concentration - - Weight 148 kg (327 lb) 05/22/2025 3:36 PM EDT Height 188 cm (6' 2 ) 05/22/2025 3:36 PM EDT Body Mass Index 41.98 05/22/2025 3:36 PM EDT Plan of Treatment Upcoming Encounters Date Type Department Care Team (Late st Contact Info) Description 07/10/2025 10:30 AM EST Office Visit [facility] [address] [place] [phone] Diamante Mondragon DPM [address] [place] [address] 07/24/2025 1:30 PM EST [facility] [address] [place] [address] Idania Gaston DO [address] [place] [address] Health Maintenance Due Date Last Done Comments CT Colonography 1971 FIT-DNA 1971 FIT 1971 FOBT 1971 Sigmoidoscopy 1971 Diabetes: Urine Protein Screening 05/19/2022 021 Diabetes: Retinopathy Screening 01/06/2025 01/07/2024, 12/17/2022, 06/12/2020, Additional history exists Diabetes: Hemoglobin A1C 08/21/2025 025, 07/11/2024, 07/11/2024, Additional history exists Medicare Annual Wellness (AWV) 05/22/2026 0 05/22/2025, 09/30/2023, 09/30/2023 Colonoscopy 06/20/2034 06/20/2024, 08/07, 09/03/2022, Additional history exists Colorectal Cancer Screening 06/20/2034 Influenza Vaccine Completed 06/09/2025, , 06/18/2019, Additional history exists Procedures Procedure Name Priority Date/Time Associated Diagnosis Comments TSH ([facility]) Routine 06/07/2025 1:15 PM EDT PROSTATIC SPECIFIC ANTIGEN, SCREEN ([facility]) Routine 06/07/2025 1:15 PM EDT LIPID PANEL Routine 06/07/2025 1:15 PM EDT COMPREHENSIVE METABOLIC PANEL Routine 06/07/2025 1:15 PM EDT CBC WITH AUTO DIFFERENTIAL Routine 06/07/2025 1:15 PM EDT POCT GLYCOSYLATED HEMOGLOBIN (HGB A1C) Routine 05/22/2025 3:57 PM EDT Type 2 diabetes mellitus with peripheral neuropathy (HCC) DIABETIC RETINOPATHY SCREENING - OU - BOTH EYES Routine 01/07/2024 1:19 PM EDT COLONOSCOPY Routine 09/03/2022 12:00 PM EST MICROALBUMIN / CREATININE URINE RATIO Routine 05/19/2021 from Last 3 Months or Most Recently Relevant to Health Maintenance Results * TSH ([facility]) (06/07/2025 1:15 PM EDT) TSH 1.97 0.49 - 4.67 uIU/mL [facility] Comment: PERFORMED AT [facility] [address],[place] [address] 06/07/2025 1:15 PM EDT 06/07/2025 5:25 PM EDT us Idania Gaston DO LAB BLOOD ORDERABLES Final Result [facility] * PROSTATIC SPECIFIC ANTIGEN, SCREEN ([facility]) (06/07/2025 1:15 PM EDT) PROSTATIC SPEC ANT 0.75 0.00 - 4.00 ng/mL [facility] Comment: The method used for this test is Tevin Akippa DXI chemiluminescent immunoassay. Values obtained by different assay methods cannot be used interchangeably. PERFORMED AT [facility] [address],[place] [address] 06/07/2025 1:15 PM EDT 06/07/2025 5:25 PM [...] a previously preliminary verified report. PERFORMED AT [facility] [address],[place] [address] 06/07/2025 1:15 PM EDT 06/07/2025 5:25 PM EDT us Idania Gaston DO LAB BLOOD ORDERABLES Final Result [facility] * (ABNORMAL) Lipid panel (06/07/2025 1:15 PM EDT) CHOLESTEROL 140(L) 150 - 200 mg/dL [facility] [...] - 30 mg/dL [facility] Comment: PERFORMED AT [facility] [address],[place] [address] 06/07/2025 1:15 PM EDT 06/07/2025 5:25 PM EDT us Idania Gaston DO LAB BLOOD ORDERABLES Final Result [facility] * ([facility]NORMAL) Comprehensive metabolic panel (06/07/2025 1:15 PM EDT) Sodium 145 134 - 146 mmol/L [facility] [...] not use a race coefficient. PERFORMED AT [facility] [address],[place] [address] 06/07/2025 1:15 PM EDT 06/07/2025 5:25 PM EDT Idania Gaston DO LAB BLOOD ORDERABLES Final Result [facility] * ([facility]NORMAL) POCT glycosylated hemoglobin (Hb A1C) docked device (05/22/2025 3:57 PM EDT) Hemoglobin A1C 8.6 Blood Venous blood specimen / Unknown 05/22/2025 3:57 PM EDT Idania Gaston DO POINT OF [...] Narrative 09/03/2022 12:00 PM EST PERFORMED AT [facility] LOCATION:[id number] [facility] Procedure Note CONVERSION, GENERIC - 01/20/2023 PERFORMED AT [facility] LOCATION:[id number] [facility] Idania Gaston DO ENDOSCOPY PROCEDURE ORDERA BLES [...] Maintenance Insurance [employer] MEDICARE Care Teams Tyre Builder Relationship Specialty Start Date End Date Idania Gaston DO [address] [place] [address] PCP - General Family Medicine 09/20/23 Idania Gaston DO [address] [place] [address] PCP - [facility] 09/06/23
--- OUTSIDE RECORDS SUMMARY | 2025-06-16 09:15 | XMS_ITS | Encounter Summary ---
Author Organization [facility] Address [address] [place] [address] Care Team Providers Care Material Hauler Name Role Phone Idania Gaston DO Primary Care Provider +[phone]- [phone] Idania Gaston DO Unavailable Encounter Details Date Type Department Care Team (Late st Contact Info) Description 01/07/2024 Orders Only [facility] [place] [facility] [address] [place] [address] Idania Gaston, [address] [facility] [address] [place] [address] Social History Tobacco Use Types Packs/Day Years [...] [address] [place] [phone] Diamante Mondragon DPM [address] [place] [address] 07/24/2025 1:30 PM EST Office Visit [facility] [address] [place] [address] Idania Gaston DO [address] [place] [address] documented as of this encounter Procedures Procedure [...] on filedocumented in this encounter Care Teams Material Hauler Relationship Specialty Start Date End Date Idania Gaston DO [address] [place] [address] PCP - General Family Medicine 09/20/23 Idania Gaston DO [address] [place] [address] PCP - [facility] 09/06/23 documented as of this encounter
--- OUTSIDE RECORDS SUMMARY | 2025-06-16 09:15 | XMS_ITS | Encounter Summary ---
Author Organization [facility] Address [address] [place] [address] Care Team Providers Care Atmospheric Chemist Name Role Phone Idania Gaston DO Primary Care Provider +1- [phone] Idania Gaston DO Unavailable [phone] Encounter Details Date Type Department Care Team (Late st Contact Info) Description 01/07/2024 Abstract [facility] [place] [facility] [address] [facility] [address] [place] [phone] Idania Gaston, DO [address] [facility] [address] [place] [address] Social History Tobacco Use Types Packs/Day Years [...] [address] [place] [address] Diamante Mondragon DPM [address] [place] [address] 07/24/2025 1:30 PM EST Office Visit [facility] [address] [place] [address] Idania Gaston DO [address] [place] [address] documented as of this encounter Visit Diagnoses Not on filedocumented in this encounter Care Teams Atmospheric Chemist Relationship Specialty Start Date End Date Idania Gaston DO [address] [place] [address] PCP - General Family Medicine 09/20/23 Idania Gaston DO [address] [place] [address] PCP - [facility] 09/06/23 documented as of this encounter
--- OUTSIDE RECORDS SUMMARY | 2025-06-16 09:15 | XMS_ITS | Encounter Summary ---
Author Organization [facility] Address [address] [place] [address] Care Team Providers Care Environmental Sampler Name Role Phone Idania Gaston DO Primary Care Provider +- [phone] Idania Gaston DO Unavailable [phone] Encounter Details Date Type Department Care Team (Latest Contact Info) Description 06/08/2025 Results Follow-Up [facility] [address] [facility] [address] [place] [address] Idania Gaston, DO [address] [facility] [address] [place] [address] CBC auto differential, Comprehensive metabolic panel, Lipid panel, Additional followed-up results: 2 Social History Tobacco Use Types Packs/Day Years [...] often do you attend chur ch or adventism services? 1 to 4 times per year 12/05/2024 Do you belong to any clubs o r organizations such as yazidism groups, unions, fraternal or athletic groups, or [...] Recorded Patient Health Questionnaire-2 Score 0 05/22/2025 [facility] - Occupational Stress Questionnaire Answer Date [...] time in the past 12 m [facility], were you homeless or living in a fci (including now)? No 12/05/2024 Sex and Gender Information Value Date Recorded Sex Assigned at Not on file Legal Sex Male 7:11 PM EDT Gender Identity Not on file Sexual Orientation Not on file documented as of this encounter Miscellaneous Notes * Telephone Encounter - Melinda Dailey LPN - 06/08/2025 1:45 PM EDT ----- Message from Dr. Idania Gaston sent at 06/08/2025 12:29 PM EDT ----- Please notify pt labs show that his anemia has worsened. This is most likely due to his ESRD and will be taken care of by his modeling agent if he needs treatment for this. Please make sure he is not having any black/tarry stools. thanks ----- Message ----- From: Interface, Incoming Lab Promed Background Sent: 06/07/2025 5:49 PM EDT To: Idania Gaston DO documented in this encounter Plan of Treatment Upcoming Encounters Date Type Department Care Team (Late st Contact Info) Description 07/10/2025 10:30 AM EST Office Visit [facility] [address] [place] [phone] Diamante Mondragon DPM [address] [place] [address] 07/24/2025 1:30 PM EST Office Visit [facility] [place] [facility] [address] [place] [address] Idania Gaston, DO [address] [place] [address] documented as of this encounter Visit Diagnoses Not on filedocumented in this encounter Care Teams Environmental Sampler Relationship Specialty Start Date End Date Idania Gaston DO [address] [place] [address] PCP - [facility] 09/20/23 Idania Gaston DO [address] [place] [address] PCP - [facility] 09/06/23 documented as of this encounter
--- OUTSIDE RECORDS SUMMARY | 2025-06-16 09:15 | XMS_ITS | Encounter Summary ---
Author Organization Jukely tem Address [id number] [address] [place] [address] Care Team Providers Care Card Checker Name Role Phone Chintan Quinn DO Primary Care Provider [phone] Encounter Details Date Type Department Care Team (Late st Contact Info) Description 06/01/2025 Telephone [facility] [address] [place] [address] [place] [address] Millie Yepez CMA Social History Tobacco Use Types Packs/Day Years [...] encounter Miscellaneous Notes * Telephone Encounter - Millie Yepez CMA - 06/01/2025 9:27 AM EDT Patient called into office stating that he has been taking the divalproex as 2 tablets daily since he picked up the medication. Did not read the directions that it should be 1 tablet for the first 14days. Patient is wanting to know if this will effect anything or if he is needed a refill sent to complete the whole course of medication. Please advise? * Telephone Encounter - Chintan Quinn DO - 06/01/2025 9:27 AM EDT There is no issue with him taking 2 Depakote tablets at 1 time. I will send in a new prescription so that he will not run short before his next office visit on June 21. * Telephone Encounter - Millie Yepez CMA - 06/01/2025 9:27 AM EDT Attempted to call patient with provider response. No answer, left message documented in this encounter Plan of Treatment Upcoming Encounters Date Type Department Care Team (Late st Contact Info) Description 06/21/2025 1:00 PM EDT Office Visit [facility] [address] [place] [address] [place] [address] Chintan Quinn DO [address] [facility] [place], [place] [id number] 06/28/2025 2:30 PM EDT Office Visit [facility] [address] [place] [phone] Maciej Roldan PA [address] [place] [address] documented as of this encounter Visit Diagnoses Diagnosis Neuropathic pain of both feet documented in this encounter Additional Health Concerns Assessment Noted Time PHQ-9 Depression Total Score: 0 05/17/20 10:31 AM EDT A Body Mass Index follow-up plan has been documented for the patient 05/19/2025 9:44 PM EDT documented as of this encounter Care Teams Card Checker Relationship Specialty Start Date End Date Chintan Quinn DO [address] [place] [address], [address] [place] [id number] PCP - General Family Medicine 05/17/25 documented as of this encounter
--- OUTSIDE RECORDS SUMMARY | 2025-06-16 09:15 | XMS_ITS | Encounter Summary ---
Author Organization [facility] Address [address] [place] [address] Care Team Providers Care Backpackers Manager Name Role Phone Idania Gaston DO Primary Care Provider [phone]- [phone] Idania Gaston DO Unavailable [phone] Encounter Details Date Type Department Care Team (Late st Contact Info) Description 03/12/2025 Abstract [facility] [place] [facility] [address] [facility] [address] [place] [address] Idania Gaston, DO [address] [facility] [address] [place] [address] Social History Tobacco Use Types Packs/Day Years [...] do you attend [facility] or orthodox services? 1 to 4 times per year [...] 10/02/2024 [facility] Occupat ional Health - Occupational Stress [...] [address] [place] [address] Diamante Mondragon DPM [address] [place] [address] 07/24/2025 1:30 PM EST Office Visit [facility] [address] [place] [address] Idania Gaston DO [address] [place] [address] documented as of this encounter Visit Diagnoses Not on filedocumented in this encounter Care Teams Backpackers Manager Relationship Specialty Start Date End Date Idania Gaston DO [address] [place] [address] PCP - General Family Medicine 09/20/23 Idania Gaston DO [address] [place] [address] PCP - [facility] 09/06/23 documented as of this encounter
--- OUTSIDE RECORDS SUMMARY | 2025-06-16 09:15 | XMS_ITS | Encounter Summary ---
Author Organization [facility] Address [address] [place] [address] Care Team Providers Care Public Relations Coordinator Name Role Phone Idania Gaston DO Primary Care Provider [phone] Idania Gaston DO Unavailable [phone] Encounter Details Date Type Department Care Team (Late st Contact Info) Description 01/07/2024 Abstract [facility] [place] [facility] [address] [facility] [address] [place] [address] Idania Gaston, DO [address] [facility] [address] [place] [address] Social History Tobacco Use Types Packs/Day Years [...] [address] [place] [address] Diamante Mondragon DPM [address] [place] [address] 07/24/2025 1:30 PM EST Office Visit [facility] [address] [place] [address] Idania Gaston DO [address] [place] [address] documented as of this encounter Visit Diagnoses Not on filedocumented in this encounter Care Teams Public Relations Coordinator Relationship Specialty Start Date End Date Idania Gaston DO [address] [place] [address] PCP - General Family Medicine 09/20/23 Idania Gaston DO [address] [place] [address] PCP - [facility] 09/06/23 documented as of this encounter
--- OUTSIDE RECORDS SUMMARY | 2025-06-16 09:15 | XMS_ITS | Encounter Summary ---
Author Organization [facility] Address [address] [place] [address] Care Team Providers Care Mail Superintendent Name Role Phone Idania Gaston DO Primary Care Provider [phone]- [phone] Idania Gaston DO Unavailable [phone] Encounter Details Date Type Department Care Team (Late st Contact Info) Description 01/17/2024 Abstract [facility] [place] [facility] [address] [facility] [address] [place] [address] Idania Gaston, DO [address] [facility] [address] [place] [address] Social History Tobacco Use Types Packs/Day Years [...] [address] [place] [address] Diamante Mondragon DPM [address] [place] [address] 07/24/2025 1:30 PM EST Office Visit [facility] [address] [place] [address] Idania Gaston DO [address] [place] [address] documented as of this encounter Visit Diagnoses Not on filedocumented in this encounter Care Teams Mail Superintendent Relationship Specialty Start Date End Date Idania Gaston DO [address] [place] [address] PCP - General Family Medicine 09/20/23 Idania Gaston DO [address] [place] [address] PCP - [facility] 09/06/23 documented as of this encounter
--- OUTSIDE RECORDS SUMMARY | 2025-06-16 09:15 | XMS_ITS | Clinical Summary ---
Author Organization [facility] Address [address] [id number] Care Team Providers Care Litigation Services Manager Name Role Phone Idania Gaston DO Primary Care Provider [phone] Social History Tobacco Use Types Packs/Day Years [...] of 2) 2021 COVID-19 Vaccine (1 - 2024-2 6 season) 2025 Influenza Vaccine (#1) 2025 Respiratory Syncytial Virus (RSV) or ages 60 years and older (1 - 1-dose 75+ series) 2046 Respiratory Syncytial Virus (RSV) ages 0 thru 19 months Aged Out No longer eligible based on patient's age to complete this topic Care Teams Litigation Services Manager Relationship Specialty Start Date End Date Idania Gaston DO [address] [place] [address] PCP - General Family Medicine 06/04/22
--- OUTSIDE RECORDS SUMMARY | 2025-06-16 09:16 | XMS_ITS | Encounter Summary ---
Author Organization [facility] Address [address] [place] [address] Care Team Providers Care Subsorter Name Role Phone Idania Gaston DO Primary Care Provider +- [phone] Idania Gaston DO Unavailable [phone] Encounter Details Date Type Department Care Team (Late st Contact Info) Description 02/08/2025 Abstract [facility] [place] [facility] [address] [facility] [address] [place] [address] Idania Gaston, DO [address] [facility] [address] [place] [address] Social History Tobacco Use Types Packs/Day Years [...] week 12/05/2024 How often do you attend [facility] or restorationism services? 1 to 4 times per year 12/05/2024 Do you belong to any clubs o r organizations such as taoism groups, unions, fraternal or athletic groups, or [...] [address] [place] [address] Diamante Mondragon DPM [address] [place] [address] 07/24/2025 1:30 PM EST Office Visit [facility] [address] [place] [address] Idania Gaston DO [address] [place] [address] documented as of this encounter Visit Diagnoses Not on filedocumented in this encounter Care Teams Subsorter Relationship Specialty Start Date End Date Idania Gaston DO [address] [place] [address] PCP - General Family Medicine 09/20/23 Idania Gaston DO [address] [place] [address] PCP - [facility] 09/06/23 documented as of this encounter
--- OUTSIDE RECORDS SUMMARY | 2025-06-16 09:16 | XMS_ITS | Clinical Summary ---
Author Organization [facility] Address [address] [place] [address] Care Team Providers Care Aix Architect Name Role Phone Idania Gaston DO Primary Care Provider [phone] Ignacio Clay MD Unavailable [phone] Adams Tate CONCESSION STAND ATTENDANT Unavailable [phone] Delano Bardales MD Unavailable Sivan Keller MD Unavailable [phone] Desire Bueno CONCESSION STAND ATTENDANT Unavailable Unavailabl e Allergies Active Allergy Reactions Criticality Noted Date Comments Adhesive Rash Low 05/02/2022 Adhesive Tape-Silicones Rash Medium 06/18/2022 Haloperidol Anxiety Low 09/25/2023 Latex Rash Medium 06/18/2022 If on for long periods of time [place] [employer] GI intolerance Low 06/16/2018 Runny nose, [...] Act essence ergocalciferol (Vitamin D-2) 1.25 MG (30034 Units) capsule in the morning. Acti ve [...] to your scheduled MRI. 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 Pure hypercholesterolemia 06/11/2015 Encounters Date Type Department Care Team Description 06/09/2025 [facility] [address] [place] [phone] abdomen pelvis wo IV contrast 05/31/2025 [facility] In[facility] [address] [place] [address] Desire Bueno CNP 05/24/2025 6:24 AM EDT - 05/24/2025 11:59 PM EDT Hospital Encounter [facility] CT Imaging [address] [place] [id number] Lymphadenopathy Discharge Disposition: Home or Self Care () 05/11/2025 Telephone [facility] Transplant [address] [place] [address] Melinda Hidalgo RN from Last 3 Months Immunizations Immunization Administration [...] use - rare / once per year [employer] Answer Date Recorded In the past 12 months has e [employer], oil, or water [employer] threatened to shut off services in your [...] in the past 12 m [facility], were you homeless or living in a senior care (including now)? No 09/12/2024 Hunger Vital Sign [...] Male 11/23/2024 1:08 PM EDT Sexual Orientation Heterosexual or Straight 05/07 6:24 AM EDT Last Filed Vital Signs Vital Sign [...] Care Team (Late st Contact Info) Description 06/26/2025 11:00 AM EDT [facility] [address] [place] [address] Sivan Keller MD [address] [place] [address] 07/03/2025 10:00 AM EDT Follow-Up [facility] Infectious Disease [address] [place] [address] Leslie Morel MD [address] [place] [address] Health Maintenance Due Date Last Done Comments CT Colonography 1971 FIT-DNA 1971 FIT 1971 FOBT 1970 Medicare Annual Wellness (AWV) 1970 Sigmoidoscopy 1971 Diabetes: Retinopathy Screening 1981 Pneumococcal Vaccine: Pediatrics (0 to 5 Years) and At-Risk Patients (6 to 64 Years) (1 of 2 - PCV) 1990 Adult Tetanus 1993 Diabetes: Urine Protein Screening 05/19/2022 05/19/2021 Diabetes: Hemoglobin A1C 10/11/2024 024, 04/27/2023, 04/27/2023, Additional history exists COVID-19 Vaccine ( season) 2025 08/11/2021, 01/22/2021 Influenza Vaccine (#1) 2025 , 06/09/2025, 11/05/2022, Additional history exists Depression Screening 12/21/2025 12/21/2024 Colonoscopy 09/03/2032 09/03/2022, 08/07, 06/18/2022 Colorectal Cancer Screening 09/03/2032 Zoster Vaccines Completed 01/18/2023, 11/13/2022 Hepatitis B Vaccines Completed 04/20/2025, 03/19/2025, 08/28/2024, [...] Procedure Name Priority Date/Time Associated Diagnosis Comments CT ABDOMEN PELVIS WO IV CONTRAST Routine 05/24/2025 6:44 AM EDT Lymphadenopathy HEMOGLOBIN A1C Routine 07/11/2024 11:22 AM EST End stage renal disease ([facility]) Hypertension, essential Pre-transplant evaluation for kidney transplant Type 2 diabetes mellitus with chronic kidney disease on chronic dialysis, unspecified whether detention insulin use ([facility]) DIAGNOSTIC COLONOSCOPY Routine 09/03/2022 9:29 AM EST Screen for colon cancer from Last 3 Months or Most Recently Relevant to Health Maintenance Results * CT abdomen pelvis wo IV contrast (05/24/2025 6:44 AM EDT) Anatomical Region Laterality Modality Body, Pelvis, Abdomen Computed T omography 05/25/2025 2:04 PM EDT Impressions 05/25/2025 2:07 PM EDT * Enlarged right external iliac lymph nodes remain, stable to slightly smaller in size since previous study. No newly enlarged abdominal/pelvic lymph nodes. Electronically signed: Donal Aguilera MD. Narrative 05/25/2025 2:[address] ABDOMEN AND PELVIS WITHOUT INTRAVENOUS CONTRAST HISTORY: Inguinal lymphadenopathy COMPARISON: 07/11/2024 TECHNIQUE: Routine CT abdomen/pelvis without contrast. All CT scans at this facility use dose modulation, iterative reconstruction, and/or weight based dosing when appropriate to reduce radiation dose to as low as reasonably achievable. FINDINGS: Visualized lung bases are unremarkable. The liver, spleen, right adrenal gland, pancreas, and gallbladder are unremarkable. Left adrenal nodule measuring 2.6 cm compatible with benign adenoma. No enlarged abdominal lymph nodes. Enlarged right external iliac lymph nodes remain with the largest measuring 2.6 x 1.6 cm (series 3, image 156), unchanged since previous study. A second slightly smaller lymph node measuring 2.0 x 1.3 cm (series 3, image 151) has decreased in size having previously measured 2.3 x 1.8 cm. No newly enlarged lymph nodes. The bladder is unremarkable. Normal appendix. The small and large bowel are of normal caliber with no evidence of bowel wall thickening. Multilevel degenerative changes in the spine. Procedure Note Donal Aguilera MD - 05/25/2025 CT ABDOMEN AND PELVIS WITHOUT INTRAVENOUS CONTRAST HISTORY: Inguinal lymphadenopathy COMPARISON: 07/11/2024 TECHNIQUE: Routine CT abdomen/pelvis without contrast. [facility] use dose modulation, iterative reconstruction, and/or weightbased dosing when appropriate to reduce radiation dose to as low as reasonably achievable. FINDINGS: Visualized lung bases are unremarkable. The liver, spleen, right adrenalgland, pancreas, and gallbladder are unremarkable. Left adrenal nodule measuring2.6 cm compatible with benign adenoma. No enlarged abdominal lymph nodes.Enlarged right external iliac lymph nodes remain with the largest measuring 2.6 x1.6 cm (series 3, image 156), unchanged since previous study. A second slightlysmaller lymph node measuring 2.0 x 1.3 cm (series 3, image 151) has decreased insize having previously measured 2.3 x 1.8 cm. No newly enlarged lymph nodes.The bladder is unremarkable. Normal appendix. The small and large bowel areof normal caliber with no evidence of bowel wall thickening. Multilevel degenerative changes in the spine. IMPRESSION: *Enlarged right external iliac lymph nodes remain, stable to slightly smaller in size since previous study. No newly enlarged abdominal/pelviclymph nodes. Electronically signed: Donal Aguilera MD. Desire Bueno [facility] CT PROCEDURES Final Res ult * (ABNORMAL) Hemoglobin A1c (07/11/2024 11:22 AM EST) Hemoglobin A1C 7.4(H) 4.0 - 6.0 % 07/12/2024 8:04 AM EST [facility]) Estimated Average Glucose 166 mg/dL 07/12/2024 8:04 AM EST [facility] ([facility]) Blood Venous blood specimen / Unknown Venipuncture / Unknown 07/11/2024 11:22 AM EST 07/11/2024 11:48 AM EST us Brian Cabrera MD LAB BLOOD ORDERABLES Final Re sult [facility] ([facility]) [address] [place] [address] * Colonoscopy (09/03/2022 9:29 AM EST) Anatomical [...] tolerated the procedure well without immediate complication. Thida bowel prep score; right colon 1, transverse [...] HISTOLOGY - TISSUE EXAM Jonel Moore MD 09/03/2022905 Jonel Moore MD ENDOSCOPY PROCEDURE ORDERABLES Final Result from Last 3 Months or Most Recently Relevant to Health Maintenance Insurance [employer] MEDICARE MEDICAID [place] [employer] * Guarantor: Mina Forte Account Type Relation to Patient Date of Phone Billing Address Transplant Recipient Self 1970 [id number] [address] [facility] MEDICARE MEDICAID [place] [employer] Advance Directives * Full Code (Latest Code Status on File) Date Activated Date Inactivated Comments 08/22/2024 2:50 PM 08/22/2024 8:11 PM Care Teams Aix Architect Relationship Specialty Start Date End Date Idania Gaston DO [address] [place] [address] PCP - General 04/29/22 Ignacio Clay MD [address] [place] [address] [address] [place] [address] Consulting Physician Transplant Surgery 05/02/22 Adams Tate, [facility] [facility] [address] [place] [address] Nurse Practitioner Urology 03/01/23 Delano Bardales MD [address] [place] [address] Consulting Physician Urology 07/06/23 Sivan Keller MD [address] [place] [address] Consulting Physician Hematology and Oncology 08/22/24 Desire Bueno CNP [address] [place] [address] Nurse Practitioner Hematology and Oncology 12/21/24
--- OUTSIDE RECORDS SUMMARY | 2025-06-16 09:16 | XMS_ITS | Encounter Summary ---
Author Organization [facility] Address [address] [place] [address] Care Team Providers Care Barrel Line Operator Name Role Phone Idania Gaston DO Primary Care Provider [phone] Idania Gaston DO Unavailable [phone] Encounter Details Date Type Department Care Team (Late st Contact Info) Description 03/27/2025 Abstract [facility] [place] [facility] [address] [facility] [address] [place] [address] Idania Gaston, DO [address] [facility] [address] [place] [address] Social History Tobacco Use Types Packs/Day Years [...] 12/05/2024 How often do you attend [facility] or yazidi services? 1 to 4 times [...] [address] [place] [address] Diamante Mondragon DPM [address] [place] [address] 07/24/2025 1:30 PM EST [facility] [address] [place] [phone] Idania Gaston DO [address] [place] [address] documented as of this encounter Visit Diagnoses Not on filedocumented in this encounter Care Teams Barrel Line Operator Relationship Specialty Start Date End Date Idania Gaston DO [address] [place] [address] PCP - General Family Medicine 09/20/23 Idania Gaston DO [address] [place] [address] PCP - [facility] 09/06/23 documented as of this encounter
--- OUTSIDE RECORDS SUMMARY | 2025-06-16 09:16 | XMS_ITS | Clinical Summary ---
Author Organization [facility] Address [address] [address] [place] [address] Phone Care Team Providers Care Nutrition Services Worker Name Role Phone Unavailable Primary Care Provider [...]
--- OUTSIDE RECORDS SUMMARY | 2025-06-16 09:16 | XMS_ITS | Clinical Summary ---
Author Organization [employer] Address [id number] [address] [place] [address] Care Team Providers Care Striper Spray Gun Name Role Phone Chintan Quinn DO Primary Care Provider [phone] Allergies Active Allergy Reactions Criticality Noted Date Comments Adhesive Tape-Silicones Rash Medium 06/18/2022 Haloperidol Anxiety Low 09/25/2023 Latex Rash Medium 06/18/2022 If on for long periods of time Other Reaction(s): Unknown If on for long periods of time Lavaca Seed Abdominal Pain Low 06/16/2018 Runny nose, watery eyes Vancomycin Hives 02/28/2023 Medications lisinopril (PRINIVIL,ZES TRIL) 10 mg tablet Take 1 tablet (10 mg total) by mouth in the morning. Active atorvastatin (LIPITOR) 20 mg tablet Take 1 tablet (20 mg total) by mouth in the morning. Active levothyroxine sodium (TIROSINT) 25 mcg capsule Take 3 capsules (75 mcg total) by mouth in the morning. Active aspirin 81 mg chewable tablet Chew 1 tablet (81 mg total) and swallow in the morning. 06/22/20 24 025 Active calcitrioL (ROCALTROL) 0.25 MCG capsule Take 1 capsule (0.25 mcg total) by mouth. Active NON FORMULARY Take 1 mg by mouth in the morning. Med Name: anaotrozole . Active nortriptyline (PAMELOR) 25 mg capsule Take 1 capsule (25 mg total) by mouth nightly. 30 capsule 1 04/27/20 25 Active bumetanide (BUMEX) 1 mg tablet Take 2 tablets (2 mg total) by mouth daily. 05/17/20 25 Active calcium acetate,phosp hat bind, (PHOSLO) 667 mg tabletIndicat ions:ESRD (end stage renal disease) [place] Take 1 tablet (667 mg total) by mouth in the morning and 1 tablet (667 mg total) at noon and 1 tablet (667 mg total) in the evening. Take with meals. 05/17/20 25 Active carvediloL (COREG) 12.5 mg tablet Take 1 tablet (12.5 mg total) by mouth in the morning and 1 tablet (12.5 mg total) in the evening. Take with meals. 05/17/20 25 Active insulin glargine (LANTUS) 100 unit/mL injection Inject 0.6 mL (60 Units total) under the skin in the morning. 05/17/20 Active insulin lispro protamin-lisp ro (HumaLOG Mix 50-50 KwikPen) 100 unit/mL (50-50) insulin pen 100u am 90u at dinnertime 05/17/20 25 Active midodrine (PROAMATINE) 2.5 mg tablet Take 4 tablets (10 mg total) by mouth daily as needed (low BP on dialysis). 05/17/20 25 Active sevelamer (RENVELA) 800 mg tabletIndicat ions:ESRD (end stage renal disease) [place] Take 2 tablets (1,600 mg total) by mouth in the morning and 2 tablets (1,600 mg total) at noon and 2 tablets (1,600 mg total) in the evening. Take with meals. 05/17/20 25 Active divalproex (DEPAKOTE) 125 mg EC tabletIndicat ions:Neuropat hic pain of both feet Take 2 tablets (250 mg total) by mouth in the morning and 2 tablets (250 mg total) before bedtime. Do all this for 30 days. 120 tablet 06/14/20 25 025 Active pregabalin (LYRICA) 150 mg capsule Take 1 capsule (150 mg total) by mouth in the morning and 1 capsule (150 mg total) before bedtime. 025 Discontinued divalproex (DEPAKOTE) 125 mg EC tabletIndicat ions:Neuropat hic pain of both feet Take 1 tablet (125 mg total) by mouth nightly for 14 days, THEN 2 tablets (250 mg total) nightly for 14 days. 42 tablet 05/17/20 25 025 Discontinued(Re order) pregabalin (LYRICA) 150 mg capsuleIndica tions:Medicat ion refill Take 1 capsule (150 mg total) by mouth in the morning and 1 capsule (150 mg total) before bedtime. Do all this for 5 days. 10 capsule 05/18/20 25 025 divalproex (DEPAKOTE) 125 mg EC tabletIndicat ions:Neuropat hic pain of both feet Take 2 tablets (250 mg total) by mouth nightly for 30 days. 60 tablet 06/01/20 25 025 Discontinued(Re order) Active Problems Problem Noted Date Diagnosed Date Neuropathic pain of both feet 05/19/2025 Assessment & Plan (05/19/2025 9:42 PM EDT): Patient describes worsening neuropathy in his feet bilaterally particularly at nighttime. He states that times he will sleep with shoes on because it does help reduce discomfort. Patient has tried several topical and oral agents previously which have had ill effect at managing neuropathic pain of feet bilaterally. Patient has been tested and found to have mild diabetic peripheral neuropathy as well as neuropathy related to spinal stenosis of the lumbar region. Patient is following with pain management and did receive injections. Recommended to patient trial with Depakote 125 mcg 1 tab for 2 weeks and then increase to 2 tablets nightly for another 2 weeks to see about controlling pain in feet bilaterally. Reviewed literature and Depakote safe to take with end-stage renal disease and does not require additional dose changes due to renal disease ordered hemodialysis. Obesity, morbid 05/17/2025 Assessment & Plan (05/19/2025 9:39 PM EDT): Obesity is improving. Patient has been losing weight. Encouraged patient to continue to do so. Type 2 diabetes mellitus wit hout complication, with long-term current use of insulin 05/17/2025 Overview (05/17/2025): Follows with information systems specialist. Acquired hypothyroidism 05/17/2025 ESRD (end stage renal disease) on dialysis 05/17 Overview (05/17/2025): Dialysis since 2021 on Wednesday, Wednesday, Wednesday at [facility] Assessment & Plan (05/19/2025 9:39 PM EDT): Patient's renal status is stable. Continue to follow with Nephrology and perform kidney dialysis on Mondays, Wednesdays and Fridays Spinal stenosis of lumbar re gion with neurogenic claudication 04/05/2025 Encounters Date Type Department Care Team Description 06/13/2025 Telephone [facility] Family Medicine [address] [place] [address] [place] [address] Estella Kingston CNA Depakote Dosage Increase 06/08/2025 10:33 AM EDT - 06/08/2025 10:40 AM EDT Surgery [facility] - Pain Procedures [address] [place] [address] Tyshawn Jacobson MD INJECTION BLOCK EPIDURAL CAUDAL STEROID [99896 (CPT )] 06/08/2025 10:14 AM EDT - 06/08/2025 11:59 PM EDT Hospital Encounter [facility] - Radiology [address] [place] [address] Tyshawn Jacobson MD Spinal stenosis of lumbar region with neurogenic claudication Discharge Disposition: Home 06/08/2025 9:44 AM EDT - 06/08/2025 10:13 AM EDT Hospital Encounter [facility] - Pain Procedures [address] [place] [address] Tyshawn Jacobson MD Discharge Disposition: Home 06/08/2025 Results Follow-Up [facility] - Pain Procedures [address] [place] [address] Tyshawn Jacobson MD Bedside Glucose *Place/Obtain serum glucose if >500 per glucometer. 06/07/2025 Travel 06/01/2025 Telephone [facility] Family Medicine [address] [place] [address] [address] LuchoMillieFREDY 05/28/2025 Telephone [facility] - Pain Management Clinic [address] [place] [address] Sarai Esquivel CNA 05/25/2025 6:08 AM EDT - 05/25/2025 9:41 AM EDT Emergency [facility] - Emergency [address] [place] [address] Kelton Gallo MD Syncope, unspecified syncope type (Primary Dx) Discharge Disposition: Home 05/25/2025 Travel 05/18/2025 7:12 PM EDT - 05/18/2025 7:55 PM EDT Emergency [facility] - Emergency [address] [place] [address] Chintan Valle, Medication refill (Primary Dx) Discharge Disposition: Home 05/18/2025 Travel 05/17/2025 10:30 AM EDT Office Visit [facility] Medicine [address] [place] [address] [place] [address] Chintan Quinn, Neuropathic pain of both feet (Primary Dx); Obesity, morbid ([facility]); ESRD (end stage renal disease) on dialysis ([facility]) 05/17/2025 Travel 05/11/2025 Telephone [facility] Management [facility] [address] [place] [address] Maciej Roldan PA 05/10/2025 1:00 PM EDT Office Visit [facility] [address] [place] [address] Maciej Roldan PA Spinal stenosis of lumbar region with neurogenic claudication (Primary Dx); Diabetic peripheral neuropathy ([facility]) 05/10/2025 Travel 04/27/2025 1:44 PM EDT - 04/27/2025 1:51 PM EDT Surgery [facility] - Pain Procedures [address] [place] [address] Tyshawn Jacobson MD INJECTION BLOCK EPIDURAL CAUDAL STEROID [50288 (CPT )] 04/27/2025 12:38 PM EDT - 04/27/2025 11:59 PM EDT Hospital Encounter [facility] - Pain Procedures [address] [place] [address] Tyshawn Jacobson MD Discharge Disposition: Home 04/27/2025 10:30 AM EDT - 04/27/2025 12:37 PM EDT Hospital Encounter [facility] - Radiology [address] [place] [address] Tyshawn Jacobson MD Spinal stenosis, lumbar region with neurogenic claudication Discharge Disposition: Home 04/27/2025 Results Follow-Up [facility] - Pain Procedures [address] [place] [address] Tyshawn Jacobson MD Bedside Glucose *Place/Obtain serum glucose if >500 per glucometer. 04/10/2025 3:48 PM EDT - 04/10/2025 4:16 PM EDT Emergency [facility] - Emergency [address] [place] [address] Anxiety (Primary Dx) Discharge Disposition: Home 04/10/2025 Travel 04/06/2025 Telephone [facility] [address] [place] [address] Marielos Abreu, senior core java developer 04/05/2025 10:00 AM EDT Office Visit [facility] [address] [place] [address] Maciej Roldan, KAREN Spinal stenosis of lumbar region with neurogenic claudication (Primary Dx); Diabetic peripheral neuropathy ([facility]) 04/03/2025 Travel 04/03/2025 Orders Only [facility] Management [facility] [address] [place] [address] Maciej Roldan PA 03/28/2025 11:56 PM EDT - 03/29/2025 12:25 AM EDT Emergency [facility] - Emergency [address] [place] [address] Donnie Fontenot MD Chronic low back pain [...] - - Weight 136.1 kg (300 lb) 05/25/2025 6:12 AM EDT Height 188 cm (6' 2 ) 05/25/2025 6:12 AM EDT Body Mass Index 38.52 05/25/2025 6:12 AM EDT Plan of Treatment Upcoming Encounters Date Type Department Care Team (Late st Contact Info) Description 06/21/2025 1:00 PM EDT Office Visit [facility] Family Medicine [address] [place] [address] Chintan Quinn DO [address], [address] [place] [address] 06/28/2025 2:30 PM EDT Office Visit [facility] [address] [place] [address] Maciej Roldan, PA [address] [place], [place] [id number] Health Maintenance Due Date Last Done Comments Diabetic Ophthalmology Exam 1971 Tobacco Counseling 1971 Diabetic Foot Exam 1989 COVID-19 Vaccine (2024-2 6 season) 2025 08/23/2021, 08/12/2021, 01/23/2021, Additional history exists Influenza Vaccine 05/07/2025 06/20/2024, , 06/22/2022, Additional history exists Adult BMI Follow Up Plan 05/17/2026 05/17/2025 Depression Screening 05/17/2026 05/17/2025 Adult BMI Screening 05/25/2026 05/25/2025 Tobacco Screening 06/08/2026 06/08/2025 DTaP,Tdap and Td Vaccines (3 - Td or Tdap) 05/01/2031 05/01/2021, 06/06/2010 Zoster (Shingles) Vaccine Completed 01/18/2023, 06/2023 Medical Devices Implanted Type Area Filter Tank Operator Device Identifier Shelf Expiration Date Model / Serial / Lot Right Foot Procedures Procedure Name Priority Date/Time Associated Diagnosis Comments FL FLUOROSCOPY UP TO 1 HOUR Routine 06/08/2025 10:23 AM EDT Spinal stenosis of lumbar region with neurogenic claudication GA NJX DX/THER SBST INTRLMNR LMBR/SAC W/IMG GDN 06/08/2025 10:17 AM EDT Spinal stenosis of lumbar region with neurogenic claudication Special Needs Diabetic, Dexcom Lt AV fistula, No BP/IV Latex, Adhesive Allergy BEDSIDE GLUCOSE Routine 06/08/2025 9:55 AM EDT PROSTATIC SPECIFIC ANTIGEN SCREEN Routine 06/07/2025 1:15 PM EDT Encounter for screening for malignant neoplasm of prostate Pure hypercholesterolemia , unspecified Type 2 diabetes mellitus with diabetic polyneuropathy (CMS-HCC) Essential (primary) hypertension Hypothyroidism, unspecified TSH Routine 06/07/2025 1:15 PM EDT Encounter for screening for malignant neoplasm of prostate Pure hypercholesterolemia , unspecified Type 2 diabetes mellitus with diabetic polyneuropathy (CMS-HCC) Essential (primary) hypertension Hypothyroidism, unspecified CBC WITH AUTO DIFFERENTIAL Routine 06/07/2025 1:15 PM EDT Encounter for screening for malignant neoplasm of prostate Pure hypercholesterolemia , unspecified Type 2 diabetes mellitus with diabetic polyneuropathy (CMS-HCC) Essential (primary) hypertension Hypothyroidism, unspecified COMPREHENSIVE METABOLIC PANEL Routine 06/07/2025 1:15 PM EDT Encounter for screening for malignant neoplasm of prostate Pure hypercholesterolemia , unspecified Type 2 diabetes mellitus with diabetic polyneuropathy (CMS-HCC) Essential (primary) hypertension Hypothyroidism, unspecified LIPID PROFILE Routine 06/07/2025 1:15 PM EDT Encounter for screening for malignant neoplasm of prostate Pure hypercholesterolemia , unspecified Type 2 diabetes mellitus with diabetic polyneuropathy (CMS-HCC) Essential (primary) hypertension Hypothyroidism, unspecified EXTRA TUBES BLUE TOP Routine 05/25/2025 8:02 AM EDT EXTRA TUBES Routine 05/25/2025 8:02 AM EDT TROP I, HIGH SENSITIVITY 1 HOUR STAT 05/25/2025 8:[address] BRAIN WO CONT STAT 05/25/2025 7:00 AM EDT XR CHEST 1 VW STAT 05/25/2025 7:00 AM EDT TROPONIN I, HIGH SENSITIVITY 0 HOUR STAT 05/25/2025 6:35 AM EDT TROPONIN I, HIGH SENSITIVITY 0 HOUR STAT 05/25/2025 6:35 AM EDT MAGNESIUM STAT 05/25/2025 6:35 AM EDT CBC WITH AUTO DIFFERENTIAL STAT 05/25/2025 6:35 AM EDT LIVER PANEL STAT 05/25/2025 6:35 AM EDT BASIC METABOLIC PANEL STAT 05/25/2025 6:35 AM EDT ECG 12-LEAD STAT 05/25/2025 6:15 AM EDT FL FLUOROSCOPY UP TO 1 HOUR Routine 04/27/2025 1:17 PM EDT Spinal stenosis, lumbar region with neurogenic claudication GA NJX DX/THER SBST INTRLMNR LMBR/SAC W/IMG GDN 04/27/2025 1:10 PM EDT Spinal stenosis of lumbar region with neurogenic claudication Special Needs Diabetic, Left arm AV fistula Latex, Adhesive allergy BEDSIDE GLUCOSE Routine 04/27/2025 12:59 PM EDT from Last 3 Months Results * Fluoroscopy less than one hour (06/08/2025 10:23 AM EDT) Only the most recent of2 resultswithin the time period is included. Narrative SYSTEMGENERATED, DOCUMENTATION - 06/08/2025 10:23 AM EDT No Reading Required. This procedure does not require a formal dictation. Non-Radiologist provider performed procedures can be reviewed under Post-Op, Procedure or Progress notes. For full report details, please reach out to your physician. Effective 01/21/2021 this image will be visible to you in MyChart. Tyshawn Jacobson MD IMG FLUOROSCOPY ORDERABLES Fi nal Result * (ABNORMAL) Bedside Glucose *Place/Obtain serum glucose if >500 per glucometer. (06/08/2025 9:55 AM EDT) Only the most recent of2 resultswithin the time period is included. Pathologist [facility] Bedside Glucose (POC) 129(H) 65 - 99 mg/dL 06/08/2025 10:00 AM EDT [facility] arterial/capilla ry 06/08/2025 9:55 AM EDT 06/08/2025 10:00 AM EDT Tyshawn Jacobson MD POINT OF CARE TEST ORDERABLES Final Result [facility] [address] [place] [address], * (ABNORMAL) CBC auto differential (06/07/2025 1:15 PM EDT) Only the most recent of2 resultswithin the time period is included. WBC 7.9 4 - 11 x10E9/L 06/07/2025 6:39 PM EDT [facility] RBC Count 3.44(L) 4.1 - 5.7 X10E12/L 06/07/2025 6:39 PM EDT [facility] Hemoglobin 10.7(L) 13 - 17 g/dL 06/07/2025 6:39 PM EDT [facility] Hematocrit 32.0(L) 39 - 50 % 06/07/2025 6:39 PM EDT [facility] MCV 93 80 - 100 fL 06/07/2025 6:39 PM EDT [facility] MCH 31.0 27 - 34 pg 06/07/2025 6:39 PM EDT [facility] MCHC 33.3 32 - 36 g/dL 06/07/2025 6:39 PM EDT [facility] RDW 15.9(H) 11.5 - 15 % 06/07/2025 6:39 PM EDT [facility] Platelet Count 232 150 - 450 X10E9/L 06/07/2025 6:39 PM EDT [facility] MPV 7.9 7 - 12 fL 06/07/2025 6:39 PM EDT [facility] Myelocyte % 2 % 06/07/2025 6:39 PM EDT [facility] Comment:This is an appended report. These results have been appended to a previously preliminary verified report. Neutrophils % 70 % 06/07/2025 6:39 PM EDT [facility] Comment:This is an appended report. These results have been appended to a previously preliminary verified report. Lymphocytes % 15 % 06/07/2025 6:39 PM EDT [facility] Comment:This is an appended report. These results have been appended to a previously preliminary verified report. Monocytes % 10 % 06/07/2025 6:39 PM EDT [facility] Comment:This is an appended report. These results have been appended to a previously preliminary verified report. Eosinophils % 2 % 06/07/2025 6:39 PM EDT [facility] Comment:This is an appended report. These results have been appended to a previously preliminary verified report. Basophils % 1 % 06/07/2025 6:39 PM EDT [facility] Comment:This is an appended report. These results have been appended to a previously preliminary verified report. Neutrophils Absolute (M) 5.4 1.5 - 6.6 10*3/uL 06/07/2025 6:39 PM EDT [facility] Comment:This is an appended report. These results have been appended to a previously preliminary verified report. Lymphocytes Absolute 1.2 1.0 - 3.5 10*3/uL 06/07/2025 6:39 PM EDT [facility] Comment:This is an appended report. These results have been appended to a previously preliminary verified report. Monocytes Absolute 0.8 0.0 - 0.9 10*3/uL 06/07/2025 6:39 PM EDT [facility] Comment:This is an appended report. These results have been appended to a previously preliminary verified report. Eosinophils Absolute 0.2 0.0 - 0.4 10*3/uL 06/07/2025 6:39 PM EDT [facility] Comment:This is an appended report. These results have been appended to a previously preliminary verified report. Basophils Absolute 0.1 0.0 - 0.2 10*3/uL 06/07/2025 6:39 PM EDT [facility] Comment:This is an appended report. These results have been appended to a previously preliminary verified report. Polychromasia 1+ 06/07/2025 6:39 PM EDT [facility] Comment:This is an appended report. These results have been appended to a previously preliminary verified report. Differential Type MANUAL DIFFERENTIAL 06/07/2025 6:39 PM EDT [facility] Comment:This is an appended report. These results have been appended to a previously preliminary verified report. Blood Venous blood / Unknown Venipuncture / Unknown 06/07/2025 1:15 PM EDT 06/07/2025 1:16 PM EDT Idania Gaston DO LAB BLOOD ORDERABLES Final Result [facility] [address] [place] [address], [place] [phone] * Prostatic specific antigen screen (06/07/2025 1:15 PM EDT) PROSTATIC SPEC ANT 0.75 0.00 - 4.00 ng/mL 06/07/2025 6:04 PM EDT [facility] Comment: The method used for this test is Tevin Renton DXI chemiluminescent immunoassay. Values obtained by different assay methods cannot be used interchangeably. Blood Venous blood / Unknown Venipuncture / Unknown 06/07/2025 1:15 PM EDT 06/07/2025 1:16 PM EDT Idania Mcfarlane [facility] LAB BLOOD ORDERABLES Final Result [facility] [address] [place] [address], * TSH (06/07/2025 1:15 PM EDT) TSH 1.97 0.49 - 4.67 uIU/mL 06/07/2025 6:08 PM EDT [facility] Blood Venous blood / Unknown Venipuncture / Unknown 06/07/2025 1:15 PM EDT 06/07/2025 1:16 PM EDT [facility] Final Result [facility] [address] [place] [address], * (ABNORMAL) Lipid profile (06/07/2025 1:15 PM EDT) CHOLESTEROL 140(L) 150 - 200 mg/dL 06/07/2025 6:02 PM EDT [facility] TRIGLYCERIDE 139 27 - 150 mg/dL 06/07/2025 6:02 PM EDT [facility] HDL CHOLESTEROL 44 >39 mg/dL 6:02 PM EDT [facility] Comment: HDL <40 mg/dL - High Risk HDL > or = 40mg/dL- Desirable HDL >60 mg/dL - Negative Risk LDL (CALC) 68 <130 mg/dL 06/07/2025 6:02 PM EDT [facility] Comment: LDL <100 mg/dL - Desirable LDL >160 mg/dL - High Risk CHOLESTEROL:HDL 3.2 1.0 - 5.0 6:02 PM EDT [facility] VERY LOW LIPOPROTEIN 28 0 - 30 mg/dL 06/07/2025 6:02 PM EDT [facility] Blood Venous blood / Unknown Venipuncture / Unknown 06/07/2025 1:15 PM EDT 06/07/2025 1:16 PM EDT Idania Gaston DO LAB BLOOD ORDERABLES Final Result [facility] [address] [place] [address], * (ABNORMAL) Comprehensive metabolic panel (06/07/2025 1:15 PM EDT) SODIUM 145 134 - 146 mmol/L 06/07/2025 6:02 PM EDT [facility] POTASSIUM 5.2(H) 3.5 - 5.0 mmol/L 06/07/2025 6:02 PM EDT [facility] CHLORIDE 100 98 - 109 mmol/L 06/07/2025 6:02 PM EDT [facility] CARBON DIOXIDE 32 22 - 32 mmol/L 06/07/2025 6:02 PM EDT [facility] ANION GAP 13 5 - 15 mmol/L 06/07/2025 6:02 PM EDT [facility] BLOOD UREA NITROGEN 48(H) 5 - 23 mg/dL 06/07/2025 6:02 PM EDT [facility] CREATININE 7.52(H) 0.60 - 1.30 mg/dL 06/07/2025 6:02 PM EDT [facility] Comment:METHOD TRACEABLE TO IDMS STANDARD GLUCOSE 92 65 - 99 mg/dL 06/07/2025 6:02 PM EDT [facility] CALCIUM 8.8 8.5 - 10.5 mg/dL 06/07/2025 6:02 PM EDT [facility] TOTAL PROTEIN 6.8 6.0 - 8.0 g/dL 06/07/2025 6:02 PM EDT [facility] ALBUMIN 3.8 3.2 - 5.3 g/dL 06/07/2025 6:02 PM EDT [facility] ALKALINE PHOSPHATASE 89 39 - 130 U/L 06/07/2025 6:02 PM EDT [facility] AST 8 <=41 U/L 06/07/2025 6:02 PM EDT [facility] ALT 11 <=40 U/L 06/07/2025 6:02 PM EDT [facility] BILIRUBIN,TOTAL 0.3 0.3 - 1.2 mg/dL 06/07/2025 6:02 PM EDT [facility] EGFR Non-Race Dependent 8(L) >=60 ml/min/1.7 3sq.m 06/07/2025 6:02 PM EDT [facility] Comment: Reported eGFR is based on the CKD-EPI 2020 equation that does not use a race coefficient. Blood Venous blood / Unknown Venipuncture / Unknown 06/07/2025 1:15 PM EDT 06/07/2025 1:16 PM EDT us Idania Gaston DO LAB BLOOD ORDERABLES Final Result [facility] [address] [place] [address], [place] [phone] * Light Blue Top (05/25/2025 8:02 AM EDT) Extra Tube Auto Resulted 05/25/2025 10:01 AM EDT [facility] Blood Venous blood / Unknown 05/25/2025 8:02 AM EDT 05/25/2025 8:14 AM EDT Kelton Gallo MD LAB BLOOD ORDERABLES Final R esult [facility] [address] [place] [address], [place] * (ABNORMAL) Troponin I, High Sensitivity 1 Hour (05/25/2025 8:02 AM EDT) TROPONIN I, HIGH SENSITIVITY 25(H) <21 ng/L 05/25/2025 8:38 AM EDT [facility] Blood Venous blood / Unknown Venipuncture / Unknown 05/25/2025 8:02 AM EDT 05/25/2025 8:10 AM EDT Narrative [facility] - 05/25/2025 8:38 AM EDT Elevations of hs-Troponin may be due to causes other than myocardial ischemia. Recommend serial hs-Troponin testing be performed. For the initial evaluation and management of chest pain patients, refer to the algorithms linked below. Emergency Patient: [email or web address] [email or web address]: [email or web address] Kelton Gallo MD LAB BLOOD ORDERABLES Final R esult [facility] [address] [place] [address]. [place] [address], [place] * CT brain without contrast (05/25/2025 7:00 AM EDT) Anatomical Region Laterality Modality Neuro, Head, Head and Neck, Neuro Covera N/A Computed Tomography 05/25/2025 7:06 AM EDT Narrative 05/25/2025 7:[address] BRAIN WO CONT CLINICAL HISTORY: Syncope COMPARISON: No prior CT brain without contrast obtained. FINDINGS: Ventricles and sulci are age appropriate. No mass, mass effect or midline shift. No intracranial hemorrhage no CT evidence of acute cortical infarct. No skull fracture. Polyps or retention cysts in the maxillary sinuses. IMPRESSION: * Negative noncontrast CT brain * All CT scans at this facility use dose modulation, iterative reconstruction, and/or weight based dosing when appropriate to reduce radiation dose to as low as reasonably achievable Finalized by Hossein Guerrero MD on 05/25/2025 7:07 AM Procedure Note Hossein Guerrero MD - 05/25/2025 CT BRAIN WO CONT CLINICAL HISTORY: Syncope COMPARISON: No prior CT brain without contrast obtained. FINDINGS: Ventricles and sulci are age appropriate. No mass, mass effector midline shift. No intracranial hemorrhage no CT evidence of acutecortical infarct. No skull fracture. Polyps or retention cysts in themaxillary sinuses. IMPRESSION: * Negative noncontrast CT brain * All CT scans at this facility use dose modulation, iterativereconstruction, and/or weight based dosing when appropriate to reduceradiation dose to as low as reasonably achievable Finalized by Hossein Guerrero MD on 05/25/2025 7:07 AM Kelton Gallo MD IMG CT ORDERABLES Final Resu lt * X-ray chest 1 view (05/25/2025 7:00 AM EDT) Anatomical Region Laterality Modality Body, Chest N/A Computed Radiogr aphy 05/25/2025 7:09 AM EDT Narrative 05/25/2025 7:09 AM EDT Single view chest History:syncope Difficulty breathing, shortness of breath Comparison: 08/09/2023 Findings: Single portable view of the chest. Stable cardiomegaly mediastinal silhouette. No new focal opacity, effusion or pneumothorax. Impression: No definitive acute cardiopulmonary process. Finalized by Chintan Clemons MD on 05/25/2025 7:09 AM Procedure Note Chintan Clemons MD - 05/25/2025 Single view chest History:syncope Difficulty breathing, shortness of breath Comparison: 08/09/2023 Findings: Single portable view of the chest. Stable cardiomegaly mediastinalsilhouette. No new focal opacity, effusion or pneumothorax. Impression: No definitive acute cardiopulmonary process. Finalized by Chintan Clemons MD on 05/25/2025 7:09 AM Kelton Gallo MD IMG DIAGNOSTIC IMAGING ORDER [place] Final Result * (ABNORMAL) Troponin I, High Sensitivity 0 Hour (05/25/2025 6:35 AM EDT) Pathologist [facility] TROPONIN I, HIGH SENSITIVITY 27(H) <21 ng/L 05/25/2025 7:12 AM EDT [facility] Blood Venous blood / Unknown 05/25/2025 6:35 AM EDT 05/25/2025 6:44 AM EDT us Kelton Gallo MD LAB BLOOD ORDERABLES Final R esult Performing Organization Address City/[facility]/ZIP Co de Phone Number [address] [place] [address], [place] * Magnesium (05/25/2025 6:35 AM EDT) Pathologist [facility] MAGNESIUM 2.2 1.8 - 2.6 mg/dL 05/25/2025 7:05 AM EDT [facility] Blood Venous blood / Unknown 05/25/2025 6:35 AM EDT 05/25/2025 6:44 AM EDT Kelton Gallo MD LAB BLOOD ORDERABLES Final R esult Performing Organization Address City/[facility]/ZIP Co de Phone Number [address] [place] [address], [place] * Liver panel (05/25/2025 6:35 AM EDT) [facility] TOTAL PROTEIN 7.3 6.0 - 8.0 g/dL 05/25/2025 7:05 AM EDT [facility] ALBUMIN 3.5 3.2 - 5.3 g/dL 05/25/2025 7:05 AM EDT [facility] BILIRUBIN,TOTAL 0.6 0.3 - 1.2 mg/dL 05/25/2025 7:05 AM EDT [facility] ALKALINE PHOSPHATASE 89 39 - 130 U/L 05/25/2025 7:05 AM EDT [facility] AST 18 <=41 U/L 05/25/2025 7:05 AM EDT [facility] ALT 29 <=40 U/L 05/25/2025 7:05 AM EDT [facility] BILIRUBIN,DIRECT 0.2 <=0.4 mg/dL 05/25/2025 7:05 AM EDT [facility] Blood Venous blood / Unknown 05/25/2025 6:35 AM EDT 05/25/2025 6:44 AM EDT us Kelton Gallo MD LAB BLOOD ORDERABLES Final R esult [facility] [address] [place] [address], * (ABNORMAL) Basic Metabolic Panel (05/25/2025 6:35 AM EDT) SODIUM 144 134 - 146 mmol/L 05/25/2025 7:05 AM EDT [facility] POTASSIUM 4.2 3.5 - 5.0 mmol/L 05/25/2025 7:05 AM EDT [facility] CHLORIDE 101 98 - 109 mmol/L 05/25/2025 7:05 AM EDT [facility] CARBON DIOXIDE 26 22 - 32 mmol/L 05/25/2025 7:05 AM EDT [facility] ANION GAP 17(H) 5 - 15 mmol/L 05/25/2025 7:05 AM EDT [facility] BLOOD UREA NITROGEN 56(H) 5 - 23 mg/dL 05/25/2025 7:05 AM EDT [facility] CREATININE 7.85(H) 0.70 - 1.20 mg/dL 05/25/2025 7:05 AM EDT [facility] Comment:METHOD TRACEABLE TO IDMS STANDARD GLUCOSE 92 65 - 99 mg/dL 05/25/2025 7:05 AM EDT [facility] CALCIUM 8.6 8.5 - 10.5 mg/dL 05/25/2025 7:05 AM EDT [facility] EGFR Non-Race Dependent 8(L) >=60 ml/min/1.7 3sq.m 05/25/2025 7:05 AM EDT [facility] Comment: eGFR not reported due to non-numeric value for Creatinine. Reported eGFR is based on the CKD-EPI 2020 equation that does not use a race coefficient. Blood Venous blood / Unknown 05/25/2025 6:35 AM EDT 05/25/2025 6:44 AM EDT Kelton Gallo MD LAB BLOOD ORDERABLES Final R esult Performing Organization Address City/[facility]/ZIP Co de Phone Number [facility] [address] [place] [address], * ECG 12 lead (05/25/2025 6:15 AM EDT) 05/25/2025 6:15 AM EDT Kelton Gallo MD ECG ORDERABLES Final Result TRACEMASTERVUE from Last 3 Months Insurance [employer] MEDICARE [facility] MEDICAID Care Teams Striper Spray Gun Relationship Specialty Start Date End Date Chintan Quinn DO [address] [place] [address], [facility], [place] [address] PCP - General Family Medicine 05/17/25
--- OUTSIDE RECORDS SUMMARY | 2025-06-16 09:16 | XMS_ITS | Encounter Summary ---
Author Organization [facility] Address [address] [place] [address] Care Team Providers Care Wireless Store Manager Name Role Phone Idania Gaston DO Primary Care Provider [phone]- [phone] Idania Gaston DO Unavailable [phone] Encounter Details Date Type Department Care Team (Late st Contact Info) Description 04/09/2025 Abstract [facility] [address] [facility] [address] [place] [address] Idania Gaston, DO [address] [facility] [address] [place] [address] Social History Tobacco Use Types Packs/Day Years [...] week 12/05/2024 How often do you attend [facility] or adventist services? 1 to 4 times per year [...] Questionnaire-2 Score 0 10/02/2024 [facility] - Occupational [...] [address] [place] [address] Diamante Mondragon DPM [address] [place] [address] 07/24/2025 1:30 PM EST [facility] [address] [place] [phone] Idania Gaston DO [address] [place] [address] documented as of this encounter Visit Diagnoses Not on filedocumented in this encounter Care Teams Wireless Store Manager Relationship Specialty Start Date End Date Idania Gaston DO [address] [place] [address] PCP - General Family Medicine 09/20/23 Idania Gaston DO [address] [place] [address] PCP - [facility] 09/06/23 documented as of this encounter
--- OUTSIDE RECORDS SUMMARY | 2025-06-16 09:16 | XMS_ITS | Encounter Summary ---
Author Organization [facility] Address [address] [place] [address] Care Team Providers Care Before School Babysitter Name Role Phone Marilin Idania CALABRESE Primary Care Provider [phone] Ignacio Clay MD Unavailable [phone] Adams Tate CNP Unavailable [phone] Delano Bardales MD Unavailable Sivan Keller MD Unavailable [phone] Desire Bueno CNP Unavailable Unavailabl e Reason for Referral * Consultation (Routine) - Denied Specialty Diagnoses / Procedures Referred By Contac t Referred To Contact Infectious Diseases Diagnoses Pelvic lymphadenopathy Procedures AR OFFICE/OUTPATIENT [facility] MDM 60 MINUTES Sivan Keller MD [address] [place] [address] Phone: tel: fax: [facility] Infectious Disease [address] [place] [address] Phone: tel: fax: Referral ID Status Reason Start Date Expiration Date V isits Requested Visits Authorized [id number] Denied Specialty Services Required 06/09/2025 06/09/2026 1 0 * Consultation (Routine) - Pending Review Specialty Diagnoses / Procedures Referred By Contac t Referred To Contact Urology Diagnoses Pelvic lymphadenopathy Procedures AR OFFICE/OUTPATIENT [facility] MDM 60 MINUTES Sivan Keller MD [address] [place] [address] Phone: tel: fax: Juan Moreland MD [address] [place] [address] Phone: tel: fax: Referral ID Status Reason Start Date Expiration Date Visits Requested Visits Authorized [id number] Pending Review Specialty Services Required 06/09/2025 06/09/2026 1 1 * Consultation (Routine) - Closed Specialty Diagnoses / Procedures Referred By Contac t Referred To Contact Infectious Diseases Diagnoses Pelvic lymphadenopathy Procedures AR OFFICE/OUTPATIENT [facility] 60 MINUTES Sivan Keller MD [address] [place] [address] Phone: tel: fax: [facility] Infectious Disease [address] [place] [address] Phone: tel: fax: Referral ID Status Reason Start Date Expiration Date V isits Requested Visits Authorized [id number] Closed Specialty Services Required 06/09/2025 06/09/2026 1 1 Encounter Details Date Type Department Care Team (Late st Contact Info) Description 06/09/2025 Results [facility]Up [facility] [address] [place] [address] Sivan Keller MD [address] [place] [address] CT abdomen pelvis wo IV contrast Social History Tobacco Use Types Packs/Day Years Used Date Smoking Tobacco: Never Smokeless Tobacco: Current Chew Last attempted to quit: 07/2022 Comments:Check status Alcohol Use Standard Drinks/Week Comments Not Currently 0 (1 standard drink = 0.6 oz pure alcohol) Previous occasional use - rare / once per year [facility] Utilities Answer Date Recorded In the past 12 months has th e Weaved, gas, oil, or water [employer] threatened to shut off services in your [...] living in a half-way (including now)? No 09/12/2024 Hunger Vital Sign [...] Heterosexual or Straight 05/07 6:24 AM EDT documented as of this encounter Miscellaneous Notes * Result Encounter Note - Tiffany Tabor RN - 06/11/2025 11:52 AM EDT Can you please send CT results to his PCP. Thank you! * Result Encounter Note - Sivan Keller MD - 06/09/2025 2:25 PM EDT Patient had biopsy prior negative, will have see ID and urology to see if he canbenefit from tissuesampling if needed, will leave it to urology and pcp to have surveillance since no tissue from onc stand point Ally, please ensure he follows up and ensure his pcp get copy of CT Sivan Keller MD documented in this encounter Plan of Treatment Upcoming Encounters Date Type Department Care Team (Late st Contact Info) Description 06/26/2025 11:00 AM EDT Follow[facility]Up [facility] [address] [place] [address] Sivan Keller MD [address] [place] [address] 07/03/2025 10:00 AM EDT Follow-Up [facility] Infectious Disease [address] [place] [address] Leslie Morel MD [address] [place] [address] Scheduled Referrals Name Type Priority Associated Diagnoses Orde r Schedule Ambulatory referral to Infectious Disease Outpatient Referral Routine Pelvic lymphadenopathy Expected: 06/09/2025 (Approximate), Expires: 12/08/2025 Ambulatory referral to Urology Outpatient Referral Routine Pelvic lymphadenopathy Expected: 06/09/2025 (Approximate), Expires: 12/08/2025 Ambulatory referral to Infectious Disease Outpatient Referral Routine Pelvic lymphadenopathy Expected: 06/09/2025 (Approximate), Expires: 12/08/2025 documented as of this encounter Visit Diagnoses Diagnosis Pelvic lymphadenopathy- Primary documented in this encounter Care Teams Before School Babysitter Relationship Specialty Start Date End Date Herojacy IdaniaDO [address] [facility] [address] [place] [address] PCP - General 04/29/22 Ignacio Clay MD [address] [place] [address] [address] [place] [address] Consulting Physician Transplant Surgery 05/02/22 Adams Tate CNP [address] [place] [address] [address] [place] [address] Nurse Practitioner Urology 03/01/23 Delano Bardales MD [address] [place] [address] Consulting Physician Urology 07/06/23 Sivan Keller MD [address] [place] [address] Consulting Physician Hematology and Oncology 08/22/24 Desire Bueno CNP [address] [place] [address] Nurse Practitioner Hematology and Oncology 12/21/24 documented as of this encounter
--- OUTSIDE RECORDS SUMMARY | 2025-06-16 09:16 | XMS_ITS | Encounter Summary ---
Author Organization [facility] Address [address] [place] [address] Care Team Providers Care Dumb Waiter Operator Name Role Phone Idania Gaston DO Primary Care Provider [phone]- [phone] Idania Gaston DO Unavailable [phone] Encounter Details Date Type Department Care Team (Late st Contact Info) Description 02/13/2025 Abstract [facility] [address] [facility] [address] [place] [address] Idania Gaston, DO [address] [facility] [address] [place] [address] Social History Tobacco Use Types Packs/Day Years [...] week 12/05/2024 How often do you attend [facility] or orthodox services? 1 to 4 times per year 12/05/2024 Do you belong to any clubs o r organizations such as anabaptism groups, unions, fraternal [...] Recorded Patient Health Questionnaire-2 Score 0 10/02/2024 [facility] - Occupational [...] were you homeless or living in a group home (including now)? No 12/05/2024 Sex and [...] [address] [place] [address] Diamante Mondragon DPM [address] [place] [address] 07/24/2025 1:30 PM EST [facility] [address] [place] [address] Idania Gaston DO [address] [place] [address] documented as of this encounter Visit Diagnoses Not on filedocumented in this encounter Care Teams Dumb Waiter Operator Relationship Specialty Start Date End Date Idania Gaston DO [address] [place] [address] PCP - General Family Medicine 09/20/23 Idania Gaston DO [address] [place] [address] PCP - [facility] 09/06/23 documented as of this encounter
--- OUTSIDE RECORDS SUMMARY | 2025-06-16 09:18 | XMS_ITS | CCD ---
Author Organization [facility] Care Team Providers Care Irrigation System Operator Name Role Phone Ada Uriostegui Unavailable BERTIN RUSSELL Admitting Unavailable YVONNEBERTIN MYERS Attending Unavailable PETZNICK, IDANIA Primary Care Unavailable PETZNICK, IDANIA Referring Unavailable Petkorina, DO Idania Primary Care Provider MD Ada Uriostegui Attending Provider Marilin, Idania Primary Care Provider [phone] MD Ada Uriostegui Attending Provider [phone] Sj Francois Primary Care Physician Sj Garcia Unavailable Unavailable Sj Francois Primary Care Physician Samantha Ricketts, DO Idania Primary Care Provider MD Ada Uriostegui Attending Provider [phone] DO Yosef Castillo Emergency Provider Sj Francois Primary Care Physician Samantha Ricketts, DO Idania Primary Care Provider [phone] MD Ada Uriostegui Attending Provider MD Evans Narayanan Jr Emergency Provider Sj Francois Primary Care Physician Sj Garcia Primary Care Physician Samantha Ricketts, DO Idania Primary Care Provider [phone] MD Ada Uriostegui Attending Provider AlessandroSj Britton Attending Samantha Ricketts Idania Primary Care Unavailable Petznick, Idania Consulting Unavailable [facility] Sj MENJIVAR Attending Sj Garcia Primary Care Physician Samantha Ricketts, DO Idania Primary Care Provider HARSH Hill Emergency Provider [phone] Petznick, DO Idania Primary Care Provider MD Ada Uriostegui Attending Provider MD Delano Mondragon Emergency Provider Frings, DO Tyesha Admit Provider Frings, DO Tyesha Attending Provider [phone] MD Jf Liu Other Provider MD Ada Uriostegui Other Provider MD Zenon Cage Other Provider MD Conor Mcnamara Other Provider MD Yocasta Villalba Other Provider Pettanoick, DO Idania Primary Care Provider MD Evans Narayanan Jr Emergency Provider HARSH Hill Emergency Provider MD Ada Uriostegui Attending Provider MD Delano Mondragon Emergency Provider [phone] Frings, DO Tyesha Admit Provider Frings, DO Tyesha Attending Provider [phone] MD Jf Liu Other Provider MD Ada Uriostegui Other Provider MD Zenon Cage Other Provider MD Conor Mcnamara Other Provider MD Yocasta Villalba Other Provider DR IDANIA RICKETTS Primary Care Unavailable KEVIN WILKES Admitting Unavailable KEVNI WILKES Attending Unavailable KEVIN WILKES Admitting Unavailable [...] Samantha Francois, Sj P Primary Care Physician Wander Bhandaridra Unavailable Pettanoick, DO Emerson Primary Care Provider HARSH Kennedy Attending Provider DO Tyesha Brewster Attending Provider Alessandro, Sj P Primary Care Physician Samantha Francois, Sj P Primary Care Physician Samantha tate Alessandro, Sj P Primary Care Physician Liliamvanathaniel Francois, Sj P Primary Care Physician Liliamvanathaniel tate Pettanoick, DO Emerson Primary Care Provider HARSH Kennedy Attending Provider DO Tyesha Brewster Attending Provider [phone] Ray, DO Clara Mcfarlane Emergency Provider [facility], Sj P Primary Care Physician Rasheeda Kirkland Unavailable Petznick, DO Idania Primary Care Provider [phone] MD Ramirez Jean Attending Provider Pettanoick, DO Idania Primary Care Provider [phone] MD Tyesha Sweet Emergency Provider [phone] MD Augusta Hill Attending Provider Ramirez Jean Unavailable Petkorina DO, Idania M Unavailable Petznick DO, Idania M Unavailable [phone] Petznick DO, Idania M Primary Care Provider DO Flakito High Attending Provider [phone] Sj Francois Primary Care Physician Samantha Ricketts, Idania Primary Care Provider MD Ramirez Jean Attending Provider MD Tyesha Sweet Emergency Provider MD Augusta Hill Attending Provider DO Flakito High Attending Provider DO Flakito High Referring Provider DO Chong Dixon Emergency Provider DO Buddy Murguia Admit Provider DO Buddy Murguia Attending Provider MD Yocasta Villalba Other Provider MD Tyesha Hernández Other Provider TIARA Vu Other Provider DO Amy Escudero Attending Provider DO Clara Bell Emergency Provider Marilin, Idania Primary Care Provider MD Ramirez Jean Attending Provider TIARA Mondragon Attending Provider Marilin, Idania Primary Care Provider Marilin, Idania Primary Care Provider [phone] DO Flakito High Attending Provider Marilin, Idania Primary Care Provider DO Chong Dixon Emergency Provider [phone] Idania Ricketts DO M Unavailable Marilin CALABRESE, Idania Primary Care Provider Delano Mondragon MD Emergency Provider Nehemiah FALCON, Will Mcgovern Emergency Provider Lindbloom DO, Maxime Admit Provider Dezm DO Maxime Attending Provider Tyesha Hernández MD Other Provider Alexa PALOMARES, Jf Other Provider Wayne MICHEL-C, Marielos Other Provider Unavailable Moody PALOMARES, Ada Other Provider Orly PALOMARES, Yocasta Other Provider Giancarlo MENJIVAR, Gi Other Provider [phone] dIania Ricketts DO Primary Care Provider Nehemiah FALCON, Will Mcgovern Emergency Provider [phone] Lindbloom DO, Maxime Admit Provider [phone] Chino DOChinyereer Attending Provider Tyesha Hernández MD Other Provider Alexa PALOMARES, Jf Other Provider Wayne MICHEL-C, Marielos Other Provider Unavailable Ada Uriostegui MD Other Provider Orly PALOMARES, Yocasta Other Provider Giancarlo MENJIVAR, Gi Other Provider Venkat Burgos DO Emergency Provider Declan Silverio APRN Emergency Provider [phone] Ivana Salcedo DO Emergency Provider Unavailable Primary Care Provider UnavailIDANIA Julio Primary Care Physician [phone] Delano Benavides Attending Unavailable Marilin CALABRESE Idania Primary Care Provider Loretta DO, Venkat M Emergency Provider Unavailable Petznick DO, Idania Primary Care Provider Petznick DO, Idania Referring Provider Jey Ramos MD Attending Provider [phone] Nuria Fermin LPN Attending Provider Unavailable Kiepert Savanah HOUSE Emergency Provider Declan Silverio APRN Emergency Provider [phone] Will Cerna PA-C Emergency Provider [phone] Petznick DO, Diania M Primary Care Provider Petznick DO, Idania Primary Care Provider SHERLEY TEMPLETON Attending Unavailable PETZNICK, IDANIA M Primary Care Unavailable PETZNICK, IDANIA Attending Unavailable PETZNICK, IDANIA Admitting Unavailable Angelika Paul Attending Unavailable PETZNICK, IDANIA M Primary Care Unavailable TYESHA APPLE Attending Unavailable TYESHA APPLE Primary Care Unavailable PETZNICK, IDANIA M Referring Unavailable Tyesha Apple DO Primary Care Provider Savanah Anthony A Admitting Unavailable Savanah Anthony A Attending Unavailable Petznick, Idania Primary Care Unavailable Krise, Ivana M Admitting Unavailable Krise Ivana M Attending Unavailable Petznick, Idania Primary Care Unavailable Rush Silverioothy Admitting Unavailable Declan Silverio Attending Unavailable Petznick, Idania Primary Care Unavailable Loretta Venkat M Admitting Unavailable Loretta Venkat M Attending Unavailable Petznick, Idania Primary Care Unavailable Petznick, Idania Primary Care Unavailable Delano Mondragon Admitting Unavailable Delano Mondragon Attending Unavailable Petznick, Idania Primary Care Unavailable Maxime Magana Admitting UnavailMaxime Worthy Attending UnavailTyesha Finnegan Consulting Unavailable Jf Liu Consulting Unavailable Marielos Black Consulting Unavailable Ada Uriostegui Consulting Unavailable Yocasta Villalba Consulting Unavailable Gi Mondragon Consulting Unavailable Petznick, Idania Primary Care Unavailable Will Cerna Admitting Unavailable Will Cerna Attending Unavailable Will Cerna Attending Unavailable Will Cerna Admitting Unavailable Petznick, Idania Primary Care Unavailable PETZNICK, IDANIA M Attending Unavailable PETZNICK, IDANIA M Referring Unavailable GI MONDRAGON Attending Unavailable GI MONDRAGON Attending Unavailable GI MONDRAGON Attending Unavailable PETZNICK, IDANIA M Attending Unavailable PETZNICK, IDANIA M Attending Unavailable PETZNICK, IDANIA M Attending Unavailable PETZNICK, IDANIA M Attending Unavailable PETZNICK, IDANIA M Referring Unavailable GI MONDRAGON Attending Unavailable PETZNICK, IDANIA M Attending Unavailable Petznick DO, Idania M Unavailable PETZNICK, IDANIA M Primary Care Unavailable MEREDITH KERR Attending Unavailable PETZNICK, IDANIA M Primary Care Unavailable PETZNICK, IDANIA M Primary Care Unavailable BASIL DE LOS SANTOS Attending Unavailable PETZNICK, IDANIA M Primary Care Unavailable PETZNICK, IDANIA M Primary Care Unavailable BILLY ALTMANUKAT Referring Unavailable PETZNICK, IDANIA M Primary Care Unavailable ALTMAN NANCY Referring Unavailable PETZNICK, IDANIA M Primary [...] Unavailable PETZNICK, IDANIA M Primary Care Unavailable BADIK, TYESHA D Primary Care Unavailable TYESHA VELA Attending Unavailab le AMBIKA, TYESHA D Primary Care Unavailable ADAM MCELROY Attending Unavailable PETZNICK, IDANIA M Referring Unavailable BADIK, TYESHA D Referring Unavailable BADIK, TYESHA D Primary Care Unavailable ALEC JACOBSON Admitting Unavailable ALEC JACOBSON Attending Unavailable ALEC JACOBSON Referring Unavailable ALLYSONIK, TYESHA D Primary Care Unavailable ALEC JACOBSON Attending Unavailable ALEC JACOBSON Referring Unavailable BADIK, TYESHA D Primary Care Unavailable BERTIN RUSSELL Referring Unavailable JENIFER, REFUGIO Referring Unavailable MOUKARBEL, PEDRO Referring Unavailable MOREL, FAUSTINO Attending Unavailable PERNE, JOY Attending Unavailable CARTER, ERICK Attending Unavailable MOUKARBEL, PEDRO Admitting Unavailable MOUKARBEL, PEDRO Attending Unavailable VIJENDRA, SIVAN Referring Unavailable COOLEY, CHONG Referring Unavailable BUENO, HEAVENLY Referring Unavailable JENIFER, REFUGIO Referring Unavailable VIJENDRA, SIVAN Attending Unavailable PERNE, JOY Attending Unavailable MOREL, KARENH Attending Unavailable MOUKARBEL, PEDRO Attending Unavailable MOREL, BASMAH Attending Unavailable JENIFER, REFUGIO Attending Unavailable YVONNE, BERTIN Referring Unavailable YVONNE, BERTIN Referring Unavailable BAHHUR, TANVIR Attending Unavailable CARTER, TRACEIN Admitting Unavailable CARTER, TRACEIN Attending Unavailable HENLEY, ANYA Admitting Unavailable HENLEY, ANYA Attending Unavailable HENLEY, ANYA Referring Unavailable COOLEY, CHONG Referring Unavailable JENIFER, REFUGIO Referring Unavailable COOLEY, CHONG Attending Unavailable COOLEY, CHONG Attending Unavailable PERNE, JOY Referring Unavailable UD DIN, BRADLEY Attending Unavailable CARTER, ERICK Attending Unavailable BUENO, HEAVENLY Attending Unavailable Allergies Allergy Classification Reported Allergen(s) Allergy Type Date of Onset Reaction(s) Facility Glycopeptides (antibiotic) (1 source) Vancomycin Drug Allergy 4 [facility] Haloperidol (1 source) Haloperidol Drug Allergy 4 [facility] Latex (1 source) Latex Substance Allergy 4 [facility] (20 sources) Latex; Translations: [latex] Allergy to substance (disorder) 2 [facility] Repository Comment on above: pt states allergy is only if exposed to latex for extended periods. (20 sources) Haloperidol; Translations: [HALOPERIDOL] Drug Allergy 3 [facility] Comment on above: anxious, restless, a gitated (2 sources) Adhesive agent; Translations: [ADHESIVE] Drug allergy (disorder) 2 [facility] Repository (20 sources) Vancomycin; Translations: [vancomycin] Drug Allergy 3 [facility] (20 sources) Milam Oil; Translations: [SUNFLOWER OIL] Propensity to adverse reactions 8 GI intolerance [facility] (20 sources) Wound Dressing Adhesive Drug Allergy 2 Rash [facility] (10 sources) sunflower seed extract; Translations: [SUNFLOWER SEED] Drug Allergy 8 Abdominal Pain [facility] Work Phone: (10 sources) Adhesive Tape-Silicones; Translations: [ADHESIVE TAPE-SILICONES] Propensity to adverse reactions to drug 2 Rash [facility] (1 source) Vancomycin Drug Allergy 5 [facility] Repository Medications Current Medications Medication Drug [...] for 3 day(s), 12 tab(s), Refill(s) 0, [facility] #[id number], 187, cm, 02/02/25 18:12:00 EDT, Height/Length Dosing, [...] December 29, 2024 February 13, 2025 8:41am anastrozole 1 mg oral tablet (20 sources) [...] tablet in the evening. 0 Active bumetanide 1 mg oral tablet (20 sources) Loop Diuretic Start: 05-17-2025 End: 05-17-2025 take 2 tablets by mouth once daily bumetanide (BUMEX) 1 mg tablet Take 2 tablets (2 mg total) by mouth daily. 05/17/2025 Active Start: 05-08-2025 End: 05-16-2025 take 1 tablet by mouth once daily bumetanide (Bumex) 2 MG tablet Indications: End stage renal disease (HCC) TAKE 1 TABLET(2 MG) BY MOUTH DAILY 30 tablet 05/16/2025 Active Start: 09-19-2024 take 1 tablet by nida th once daily Bumetanide 2 mg tablet Active 2 MG PO Daily October 29, 2024 1:00am Complies with drug therapy calcitriol 0.07376 mg oral capsule (20 sources) Vitamin D3 Analog Start: 02-12-2023 take 1 capsule by mouth in the morning calcitriol (Rocaltrol) 0.25 MCG capsule Take 0.25 mcg by mouth in the morning. 02/12/2023 Active take 1 capsule by mouth every tw enty-four hours calcium acetate 667 mg oral tablet (20 sources) Start: 05-17-2025 End: 05-17-2025 calcium acetate,phosphat bin d, (PHOSLO) 667 mg tablet Indications: ESRD (end stage renal disease) on dialysis [place] Take 1 tablet (667 mg total) by mouth in the morning and 1 tablet (667 mg total) at noon and 1 tablet (667 mg total) in the evening. Take with meals. 05/17/2025 Active Start: 10-06-2023 Calcium Acetat e(Phosphat Bind) 667 [...] 02/10/2023 08/07/2024 Discontinued take 2 tablets by mo uth every eight hours Calcium Acetate 667 MG 2 tablets with meals Orally Three times a day Active Calcium Acetate, Phos Binder, (PHOSLO PO) (2 sources) take 667 mg by mouth once daily Calcium Acetate, Phos Binder, (PHOSLO PO) Take 667 mg by mouth daily Active carvedilol 12.5 mg oral tablet (20 sources) alpha-Adrenergic Nam, beta-Adrenergic Nam Start: 05-17-2025 take 1 tablet by mouth in the morning, then take 1 tablet by mouth at mealtime carvediloL (COREG) 12.5 mg tablet Take 1 tablet (12.5 mg total) by mouth in the morning and 1 tablet (12.5 mg total) in the evening. Take with meals. 05/17/2025 Active Start: 01-25-2024 take 6.25 mg by mout h twice daily Carvedilol 12.5 mg tablet Active [...] July 29, 2022 1:56am Start: 07-15-2018 End: 05-17-2025 take 1 tablet by mouth twice daily Carvedilol 6.25 mg tablet Discontinued 6.25 MG PO Twice daily July 15, 2018 1:00am July 15, 2018 12:27pm Continuous Blood Gluc Receiv er (Dexcom G[employer] [place]) device (20 sources) Start: 12-21-2022 Continuous Blo od Gluc [place] (Dexcom G7 [place]) device 1 (one) time each day at the same time. 12/21/2022 Active Start: 12-21-2022 Continuous Blo od Gluc [place] (Dexcom G[employer] [place]) device 1 (one) time each day at [...] mouth once daily ergocalciferol (ERGOCALCIFEROL) 1.25 MG (01428 UT) capsule Take 1 capsule by mouth [...] pen injector (20 sources) Insulin Analog Start: 05-23-2025 insulin glargi ne (Lantus SoloStar) 100 UNIT/ML pen Indications: 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) Inject 60 Units under the skin Daily 30 mL 1 05/23/2025 Active Start: 05-17-2025 End: 05-17-2025 inject 0.6 mL by subcutaneous injection in the morning insulin glargine (LANTUS) 100 unit/mL injection Inject 0.6 mL (60 Units total) under the skin in the morning. 05/17/2025 Active Start: 10-29-2024 inject 50 [IU] by olivera bcutaneous injection once daily in the morning Insulin Glargine (Lantus U-100 Insulin) 100 unit/mL solution Active 50 UNIT SUBCUT Every morning October 29, 2024 1:00am Complies with drug therapy Start: 08-07-2024 End: 05-23-2025 insulin glargine (Lantus SoloStar) 100 UNIT/ML pen Indications: 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) ADMINISTER 50 UNITS UNDER THE SKIN IN THE MORNING 15 mL 05/16/2025 05/23/2025 Discontinued Start: 07-27-2024 End: 08-07-2024 Lantus SoloStar [...] pen injector (20 sources) Insulin Analog Start: 05-23-2025 inject 15 [IU] by subcutaneous injection at breakfast, then inject 100 [IU] by subcutaneous injection once daily insulin lispro (HumaLOG KWIKPEN) 100 UNIT/ML injection Indications: 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) INJECT 15 UNITS UNDER THE SKIN WITH BREAKFAST, 30 UNITS WITH LUNCH AND DINNER AND 10-15 UNITS WITH SNACKS PLUS CORRECTION 2:30 > 150 mg/dl (MAX OF 100 UNITS DAILY) 30 mL 3 05/23/2025 Active Start: 10-29-2024 Insulin Lispro (Humalog Kwikpen Insulin) 100 unit/mL insulin pen Active 25 UNIT SUBCUT .with meals October 29, 2024 1:00am Complies with drug therapy Start: 09-18-2024 End: 05-23-2025 inject 10 [IU] by subcutaneous injection once daily at breakfast insulin lispro (HumaLOG KWIKPEN) 100 UNIT/ML injection Indications: 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) INJECT 10 UNITS UNDER THE SKIN WITH BREAKFAST, 25 UNITS WITH LUNCH AND DINNER AND 10-15 UNITS WITH SNACKS PLUS CORRECTION. MAX OF 100 UNITS DAILY 30 mL 3 03/01/2025 05/23/2025 Discontinued (Dose adjustment) Start: 08-07-2024 insulin lispro (HumaLOG KWIKPEN) 100 [...] 2024 12:00am 3 ml insulin lispro 50 unt/ml / insulin lispro protamine, human 50 unt/ml pen injector (11 sources) Insulin Analog Start: 05-17-2025 insulin lispro protamin-lispro (HumaLOG Mix 50-50 KwikPen) 100 unit/mL (50-50) insulin pen 100u am 90u at dinnertime 05/17/2025 Active End: 05-17-2025 insulin lispro protamin-lisp ro (HumaLOG Mix 50-50 KwikPen) 100 unit/mL (50-50) insulin pen Inject under the skin in the morning and in the evening. Inject before meals. 100u am 90u at dinnertime. 05/17/2025 Discontinued (Reorder) insulin lispro p rotamine & lispro (HUMALOG [...] polyneuropathy associated with type 2 diabetes mellitus ([facility]) Inject 110 units for breakfast subcutaneous [...] nida th once daily in the morning lidocaine 0.05 [...] as needed (back spasms) Active midodrine hydrochloride 2.5 mg oral tablet (20 sources) alpha-Adrenergic Agonist Start: End: take 4 tablets by mouth once daily as needed midodrine (PROAMATINE) 2.5 mg tablet Take 4 tablets (10 mg total) by mouth daily as needed (low BP on dialysis). 05/17/2025 Active Start: 09-13-2024 midodrine (Pro amatine) 10 MG tablet TAKE 1 TABLET BY MOUTH NEEDED DURING DIALYSIS FOR BLOOD PRESSURE SUPPORT 09/13/2024 Active Mounjaro (2 sources) Mounjaro Active NON FORMULARY (8 sources) take 1 mg by mouth in the morning NON FORMULARY Take 1 mg by mouth in the morning. Med Name: anaotrozole . Active nortriptyline 25 mg oral capsule (10 sources) Tricyclic Antidepressant Start: 04-27-20 take 1 capsule by mouth once daily nortriptyline (PAMELOR) 25 mg capsule Take 1 capsule (25 mg total) by mouth nightly. 30 capsule 1 04/27/2025 Active pregabalin 150 mg oral capsule (20 sources) Start: 04-13-20 End: 05-22-20 take 1 capsule by mouth in the morning pregabalin (Lyrica) 150 MG capsule Indications: Type 2 diabetes mellitus with peripheral neuropathy (HCC) , Neuropathy Take 1 capsule (150 mg) by mouth in the morning and 1 capsule (150 mg) before bedtime. 60 capsule 3 05/22/2025 Active Start: 02-02-2025 End: 02-07-2025 take 1 [...] 9:10am Start: 10-10-2022 take 1 capsule by [facility] once daily Pregabalin (Lyrica) 50 mg capsule Active 50 MG PO Daily October 10, 2022 12:00am sevelamer carbonate 800 mg oral tablet (20 sources) Phosphate Binder Start: 07-26-2024 End: 05-17-2025 sevelamer (RENVELA) 800 mg tablet Indications: ESRD (end stage renal disease) on dialysis ([facility]) Take 2 tablets (1,600 mg total) by mouth in the morning and 2 tablets (1,600 mg total) at noon and 2 tablets (1,600 mg total) in the evening. Take with meals. 05/17/2025 Active Tenapanor HCl, CKD, (XPHOZAH) 30 MG TABS (2 sources) take 1 tablet by mouth twice daily Tenapanor HCl, CKD, (XPHOZAH) 30 MG TABS Take 30 mg by mouth 2 times daily Active divalproex sodium 125 mg delayed release oral tablet (5 sources) Mood Stabilizer, Anti-epileptic Agent Start: 06-01-2025 End: 07-01-2025 take 2 tablets by mouth once daily divalproex (DEPAKOTE) 125 mg EC tablet Indications: Neuropathic pain of both feet Take 2 tablets (250 mg total) by mouth nightly for 30 days. 60 tablet 06/01/2025 07/01/2025 Active Start: 05-17-2025 End: 06-14-2025 take 1 tablet by mouth once daily, then take 2 tablets by mouth once daily divalproex (DEPAKOTE) 125 mg EC tablet Indications: Neuropathic pain of both feet Take 1 tablet (125 mg total) by mouth nightly for 14 days, THEN 2 tablets (250 mg total) nightly for 14 days. 42 tablet 05/17/2025 06/01/2025 Discontinued (Reorder) Vitamin A 3 MG (25772 UT) (4 sources) take 1 capsule by mouth once jocelyn ly take 1 capsule by mouth once jocelyn ly Vitamin A 3 MG (42836 UT) 1 capsule Orally Once a day [...] Start: 12-29-2023 take 1 tablet by mouth in the morning Xphozah 30 MG tablet Take 30 mg by mouth in the morning and 30 mg before bedtime. 12/29/2023 Active Start: 12-29-2023 take 1 tablet by nida th once daily Xphozah 30 MG tablet Take 30 mg by mouth Daily 12/29/2023 Active zinc gluconate 50 mg oral ta blet (4 sources) take 1 tablet by mouth every twe nty-four hours Completed/Discontinued Medications Medication Drug Class(es) Dates Sig (Normalized) Sig (Original) [id number] 200 actuat albuterol 0.09 mg/actuat metered dose inhaler (20 sources) beta2-Adrenergic Agonist Start: 09-26-2023 End: 10-18-2023 Albuterol Sulfate 90 mcg/actuation HFA aerosol inhaler Discontinued 2 INH INHALATION EVERY 4-6 HOURS as needed for shortness of breath or wheezing 8.5 September 26, 2023 1:00am October 18, 2023 8:42am amitriptyline hydrochloride 10 mg oral tablet (7 sources) Tricyclic Antidepressant Start: 11-23-2024 End: 05-22-2025 take 2 tablets by mouth at bedtime amitriptyline (Elavil) 10 MG tablet Take 20 mg by mouth at bedtime 11/23/2024 05/22/2025 Discontinued (Ineffective) Start: 11-23-2024 End: 01-22-2025 take 1 tablet by mouth at bedtime amitriptyline (Elavil) 10 MG tablet Take 10 mg by mouth at bedtime 11/23/2024 01/22/2025 Active amoxicillin 875 mg / clavulanate 125 mg [...] Start: 03-02-2023 take 2 tablets by mo [facility] in the morning furosemide (Lasix) 40 MG [...] 16, 2023 12:07pm take 1 tablet by [facility] every twelve hours Furosemide 80 MG 1 tablet Orally twice a day for 30 days Active take 2 tablets by mo [facility] every twenty-four hours Lasix 40 MG 2 [...] Start: 05-17-2024 take 1 capsule by mo [facility] three times weekly gabapentin (Neurontin) 300 MG capsule Indications: Type 2 diabetes mellitus with peripheral neuropathy (CMS/HCC) Take 1 capsule (300 mg) by mouth 3 (three) times a week After dialysis 30 capsule 3 05/17/2024 Active Start: 05-17-2024 take 1 capsule by [facility] three times weekly gabapentin (Neurontin) 300 [...] 17, 2019 12:00am June 17, 2019 2:31pm End: 05-17-2025 gabapentin (NEURONTIN) 100 m g capsule Take 2 capsules (200 mg total) by mouth in the morning and 2 capsules (200 mg total) at noon and 2 capsules (200 mg total) in the evening and 2 capsules (200 mg total) before bedtime. 05/17/2025 Discontinued (Therapy completed) gentamicin 0.001 mg/mg topic al ointment (10 [...] tablet Discontinued 750 MG PO Q48H 7 14 June 20, 2019 12:00am July 22, 2019 [...] tablet (20 sources) Benzodiazepine Start: 05-15-2024 End: 05-22-2025 take 1 tablet by mouth every eight hours as needed for anxiety and anxiety and anxiety LORazepam (Ativan) 1 MG tablet Indications: Anxiety Take 1 tablet (1 mg) by mouth every 8 (eight) hours if needed for anxiety 10 tablet 01/03/2025 05/22/2025 Discontinued (Therapy completed) 24 hr NIFEdipine 90 mg extended release [...] 29, 2020 10:34am April 29, 2020 11:09am ondansetron 4 mg disintegrating oral tablet (20 sources) Serotonin-3 Receptor Antagonist Start: 11-29-2023 End: 05-22-2025 take 2 tablets by mouth every eight hours for nausea ondansetron ODT (Zofran-ODT) 4 MG disintegrating tablet Indications: Type 2 diabetes mellitus with foot ulcer, with long-term current use of insulin (HCC) Take 2 tablets (8 mg) by mouth every 8 (eight) hours if needed for nausea or vomiting 30 tablet 1 11/29/2023 05/22/2025 Discontinued (Therapy completed) Start: 11-01-2022 End: 11-04-2022 take 1 tablet by mouth every eight hours Ondansetron 4 mg tablet,disintegrating Discontinued 4 MG PO Q8H 9 3 November 01, 2022 1:00am November 04, 2022 5:59pm predniSONE 20 mg oral tablet (20 sources) [...] 18, 2023 8:50am [place] [address] mg powder for oral suspension (20 sources) [...] 1:00am April 24, 2025 8:42am Start: 12-29-2022 End: 05-22-2025 Testosterone 1.62 % gel appl y 2 PUMPS topically every morning 12/29/2022 05/22/2025 Discontinued (Therapy completed) Testosterone 20. 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) Inject 10 mg under the skin 1 (one) time per week 6 mL 3 08/07/2024 05/22/2025 Discontinued (Ineffective) Start: 08-07-2024 inject 10 mg by subc [...] per week 6 mL 3 08/07/2024 Active Tirzepatide (Mounjaro) 7.5 MG/0.5ML solution pen-injector (20 [...] 2 diabetes mellitus with Charcot's joint arthropathy ([facility]) Inject 7.5 mg under the skin 1 (one) time per week 6 mL 3 04/27/2024 Active Start: 10-11-2023 inject 7.5 mg by sub cutaneous injection every week Tirzepatide (Mounjaro) 7.5 MG/0.5ML solution pen-injector Indications: Type 2 diabetes mellitus with ESRD (end-stage renal disease) ([facility]) Inject 7.5 mg under the skin 1 (one) time per week 2 mL 3 10/11/2023 Active traMADol hydrochloride 50 mg oral tablet (20 sources) Opioid Agonist Start: 03-07-2025 End: 04-24-2025 take 2 tablets by mouth once daily at bedtime Tramadol 50 mg tablet Discontinued 50 MG PO Daily at bedtime 45 March 07, 2025 4:04pm April 24, 2025 [...] sources) Serotonin Reuptake Inhibitor Start: 11-07-2022 End: 05-22-2025 take 1 tablet by mouth at bedtime traZODone (Desyrel) 50 MG tablet Indications: Primary insomnia TAKE 1 TABLET(50 MG) BY MOUTH AT BEDTIME 90 tablet 08/07/2024 05/22/2025 Discontinued (Therapy completed) Start: 11-01-2022 End: 11-04-2022 take 1 tablet [...] 29, 2022 1:00am October 10, 2022 5:28am vitamin a 2.4 mg oral capsule (20 [...] Chronic Other diseases of veins and lymphatics (20 sources) Lymphedema; Translations: [Lymphedema, not elsewhere classified] [...] unspecified; Translations: [Hyperparathyroidism, unspecified] 11-23-2023 Chronic Other injuries and conditions due to [...] unspecified] 03-26-2025 Chronic Other nervous system disorders (1 source) Hereditary and idiopathic neuropathy, unspecified; Translations: [Hereditary and idiopathic neuropathy, unspecified] Onset: 5 Chronic Other nervous system disorders (1 source) Unspecified mononeuropathy of bilateral lower limbs; Translations: [Unspecified mononeuropathy of bilateral lower limbs] Onset: 5 Chronic Other nervous system disorders (7 sources) Foot pain; Translations: [Unspecified mononeuropathy of bilateral lower limbs] Onset: 5 05-17-2025 Chronic Other nervous system disorders (3 sources) Polyneuropathy, unspecified; Translations: [Polyneuropathy, unspecified] Onset: 5 Chronic Other non-traumatic joint [...] [Disorders of magnesium metabolism] 11-23-2023 Chronic Other nutritional; endocrine; and metabolic disorders (1 source) Morbid (severe) obesity due to excess calories; Translations: [Morbid (severe) obesity due to excess calories] Onset: 5 Chronic Other nutritional; endocrine; and metabolic disorders (6 sources) Morbid obesity; Translations: [Morbid (severe) obesity due to excess calories] Onset: 5 05-17-2025 Chronic Other screening for suspected conditions (not mental disorders or infectious disease) (2 sources) Abnormal findings on diagnostic imaging of other specified body structures; Translations: [Abnormal findings on diagnostic imaging of other specified body structures] Onset: 4 Chronic Other skin disorders (20 sources) Granulomatous [...] [Radiculopathy, lumbar region] Onset: 5 02-13-2025 Episodic Syncope (2 sources) Syncope and collapse; Translations: [Syncope] Onset: 5 Episodic Thyroid disorders (20 sources) Hypothyroidism, unspecified; Translations: [Acquired hypothyroidism] Onset: 2 03-02-2023 Chronic Unclassified (1 source) CONTACT W/AND (SUSP) EXPOS COVID-19; Translations: [CONTACT W/AND (SUSP) EXPOS COVID-19] Onset: 2 Unclassified (1 source) Establish Care Onset: 5 Unclassified (2 sources) Low back pain, unspecified; [...] encounter] Onset: 10-13-2023 Resolved: 08-07-2024 10-13-2023 Episodic Complications of surgical procedures or medical care (1 source) Seroma; Translations: [Abdominal wall seroma] Onset: 11-03-2023 Resolved: 11-29-2023 11-29-2023 Episodic Deficiency and other anemia (20 sources) [...] fatigue] Onset: 10-13-2023 Resolved: 02-25-2024 04-29-2020 Episodic Mood disorders (4 sources) Mood disorders Onset: 05-17-2025 05-17-2025 Nausea and vomiting (20 sources) Vomiting; Translations: [Vomiting, unspecified] Onset: 10-13-2023 Resolved: 11-29-2023 11-01-2022 Episodic Open wounds of extremities (20 sources) Open wound of left foot; Translations: [Unspecified open wound, left foot, initial encounter] Onset: 05-02-2022 Resolved: 11-29-2023 10-13-2023 Episodic Other aftercare (20 sources) Long-term current use of insulin; Translations: [[facility] (current) use of insulin] Onset: 03-02-2023 03-02-2023 Episodic Other aftercare (3 sources) 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; Translations: [Insulin long-term [...] Onset: 03-05-2022 Episodic Other connective tissue disease (4 sources) Foot pain; Translations: [Pain in unspecified foot] Onset: 10-25-2024 04-26-2025 Episodic Other connective tissue disease (1 source) Other specified soft tissue disorders; Translations: [Other specified soft tissue disorders] Onset: 01-01-2025 Episodic Other connective tissue disease (2 sources) Pain in left foot; Translations: [Pain in left foot] Onset: 12-05-2024 Episodic Other connective tissue disease (1 source) Pain in right lower leg; Translations: [Pain in right lower leg] Onset: 08-28-2024 Episodic Other connective tissue disease (2 sources) Neuralgia and neuritis, unspecified; Translations: [Neuralgia and neuritis, unspecified] Onset: 11-23-2024 Episodic Other diseases of veins and lymphatics (1 source) Venous insufficiency (chronic) (peripheral); Translations: [VENOUS INSUFF CHRONIC PERIPHERAL] Onset: 03-05-2022 Episodic Other diseases of veins and lymphatics (18 sources) Stasis dermatitis; Translations: [Venous insufficiency (chronic) [...] conditions (not mental disorders or infectious disease) (9 sources) Patient encounter status; Translations: [Encounter for screening for malignant neoplasm of prostate] Onset: 06-20-2024 05-22-2025 Episodic Other skin disorders (1 source) Corns [...] with fat layer exposed (CMS/HCC) 10-03-2024 Unclassified (4 sources) Onset: 05-19-2025 05-19-2025 Unclassified (1 source) Low back pain, unspecified; Translations: [Low back pain, unspecified] Onset: 12-27-2024 Urinary tract infections (2 sources) Nonspecific urethritis; Translations: [Nonspecific urethritis] Onset: 10-17-2024 Episodic Viral infection (20 sources) Disease caused by 2019-nCoV; Translations: [COVID-19] Onset: 01-27-2022 Resolved: 02-25-2024 09-11-2021 Episodic Results Test Name Value Interpretation Reference Range Facility BEDSIDE GLUCOSEon 06-08-2025 Glucose [Mass/Vol] 129 mg/dL High 65-99 [facility] Comment on above: Performed By: #### 3 094-0 #### [facility] ([id number]) [address] [place] [address] CBC WITH AUTO DIFFERENTIALon 06-07-2025 CELLAVISION BASOPHILS ABSOLUTE COUNT (10*3/UL) BY MANUAL COUNT 0.1 10*3/uL Normal 0.0-0.2 [facility] Comment on above: Result Comment: This is an appended report. These results have been appended to a previously preliminary verified report. Performed By: #### 3 094-0 #### [facility] ([id number]) [address], [address] [place] [address] CELLAVISION BASOPHILS RELATIVE PERCENT BY MANUAL COUNT 1 % Normal [facility] Comment on above: Result Comment: This is an appended report. These results have been appended to a previously preliminary verified report. Performed By: #### 3 094-0 #### [facility] ([id number]) [address], [address] [place] [address] CELLAVISION DIFFERENTIAL TYPE MANUAL DIFFERENTIAL Normal [facility] Comment on above: Result Comment: This is an appended report. These results have been appended to a previously preliminary verified report. Performed By: #### 3 094-0 #### [facility] ([id number]) [address], [address] [place] [address] CELLAVISION EOSINOPHILS ABSOLUTE COUNT (10*3/UL) BY MANUAL COUNT 0.2 10*3/uL Normal 0.0-0.4 [facility] Comment on above: Result Comment: This is an appended report. These results have been appended to a previously preliminary verified report. Performed By: #### 3 094-0 #### [facility] ([id number]) [address], [address] [place] [address] CELLAVISION EOSINOPHILS PERCENT BY MANUAL COUNT 2 % Normal [facility] Comment on above: Result Comment: This is an appended report. These results have been appended to a previously preliminary verified report. Performed By: #### 3 094-0 #### [facility] ([id number]) [address], [address] [place] [address] CELLAVISION LYMPHOCYTES ABSOLUTE COUNT (10*3/UL) BY MANUAL COUNT 1.2 10*3/uL Normal 1.0-3.5 [facility] Comment on above: Result Comment: This is an appended report. These results have been appended to a previously preliminary verified report. Performed By: #### 3 094-0 #### [facility] ([id number]) [address], [address] [place] [address] CELLAVISION LYMPHOCYTES RELATIVE PERCENT BY MANUAL COUNT 15 % Normal [facility] Comment on above: Result Comment: This is an appended report. These results have been appended to a previously preliminary verified report. Performed By: #### 3 094-0 #### [facility] ([id number]) [address], [address] [place] [address] CELLAVISION MONOCYTES ABSOLUTE COUNT (10*3/UL) IN BLOOD BY MANUAL COUNT 0.8 10*3/uL Normal 0.0-0.9 [facility] Comment on above: Result Comment: This is an appended report. These results have been appended to a previously preliminary verified report. Performed By: #### 3 094-0 #### [facility] ([id number]) [address], [address] [place] [address] CELLAVISION MONOCYTES RELATIVE PERCENT BY MANUAL COUNT 10 % Normal [facility] Comment on above: Result Comment: This is an appended report. These results have been appended to a previously preliminary verified report. Performed By: #### 3 094-0 #### [facility] ([id number]) [address], [address] [place] [address] CELLAVISION MYELOCYTE RELATIVE PERCENT BY MANUAL COUNT 2 % Normal [facility] Comment on above: Result Comment: This is an appended report. These results have been appended to a previously preliminary verified report. Performed By: #### 3 094-0 #### [facility] ([id number]) [address], [address] [place] [address] CELLAVISION NEUTROPHILS ABSOLUTE COUNT BY MANUAL COUNT 5.4 10*3/uL Normal 1.5-6.6 [facility] Comment on above: Result Comment: This is an appended report. These results have been appended to a previously preliminary verified report. Performed By: #### 3 094-0 #### [facility] ([id number]) [address], [address] [place] [address] CELLAVISION NEUTROPHILS RELATIVE PERCENT BY MANUAL COUNT 70 % Normal [facility] Comment on above: Result Comment: This is an appended report. These results have been appended to a previously preliminary verified report. Performed By: #### 3 094-0 #### [facility] ([id number]) [address], [address] [place] [address] CELLAVISION POLYCHROMASIA IN BLOOD BY LIGHT MICROSCOPY 1+ Normal [facility] Comment on above: Result Comment: This is an appended report. These results have been appended to a previously preliminary verified report. Performed By: #### 3 094-0 #### [facility] ([id number]) [address], [address] [place] [address] Erythrocyte distribution width (RBC) [Ratio] 15.9 % High 11.5-15 [facility] Comment on above: Performed By: #### 3 094-0 #### [facility] ([id number]) [address], [address] [place] [address] Hematocrit (Bld) [Volume fraction] 32.0 % Low 39-50 [facility] Comment on above: Performed By: #### 3 094-0 #### [facility] ([id number]) [address] [place] [address] Hemoglobin (Bld) [Mass/Vol] 10.7 g/dL Low 13-17 [facility] Comment on above: Performed By: #### 3 094-0 #### [facility] ([id number]) [address] [place] [address] MCH (RBC) [Entitic mass] 31.0 pg Normal 27-34 [facility] Comment on above: Performed By: #### 3 094-0 #### [facility] ([id number]) [address], [address] [place] [address] MCHC (RBC) [Mass/Vol] 33.3 g/dL Normal 32-36 [facility] Comment on above: Performed By: #### 3 094-0 #### [facility] ([id number]) [address], [address] [place] [address] MCV (RBC) [Entitic vol] 93 fL Normal 80-100 [facility] Comment on above: Performed By: #### 3 094-0 #### [facility] ([id number]) [address], [address] [place] [address] Platelet mean volume (Bld) [Entitic vol] 7.9 fL Normal 7-12 [facility] Comment on above: Performed By: #### 3 094-0 #### [facility] ([id number]) [address], [address] [place] [address] Platelets (Bld) [#/Vol] 232 10*3/uL Normal 150-450 [facility] Comment on above: Performed By: #### 3 094-0 #### [facility] ([id number]) [address], [address] [place] [address] RBC COUNT 3.44 X10E12/L Low 4.1-5.7 [facility] Comment on above: Performed By: #### 3 094-0 #### [facility] ([id number]) [address], [address] [place] [address] WBC (Bld) [#/Vol] 7.9 10*3/uL Normal 4-11 [facility] Comment on above: Performed By: #### 3 094-0 #### [facility] ([id number]) [address], [address] [place] [address] COMPREHENSIVE METABOLIC PANE Nick 06-07-2025 Albumin [Mass/Vol] 3.8 g/dL Normal 3.2-5.3 [facility] Comment on above: Performed By: #### 3 094-0 #### [facility] ([id number]) [address], [address] [place] [address] ALP [Catalytic activity/Vol] 89 U/L Normal 39-130 [facility] Comment on above: Performed By: #### 3 094-0 #### [facility] ([id number]) [address], [address] [place] [address] ALT [Catalytic activity/Vol] 11 U/L Normal <=40 [facility] Comment on above: Performed By: #### 3 094-0 #### [facility] ([id number]) [address], [address] [place] [address] Anion gap [Moles/Vol] 13 mmol/L Normal 5-15 [facility] Comment on above: Performed By: #### 3 094-0 #### [facility] ([id number]) [address], [address] [place] [address] AST [Catalytic activity/Vol] 8 U/L Normal <=41 [facility] Comment on above: Performed By: #### 3 094-0 #### [facility] ([id number]) [address], [address] [place] [address] Bilirubin [Mass/Vol] 0.3 mg/dL Normal 0.3-1.2 [facility] Comment on above: Performed By: #### 3 094-0 #### [facility] ([id number]) [address], [address] [place] [address] Calcium [Mass/Vol] 8.8 mg/dL Normal 8.5-10.5 [facility] Comment on above: Performed By: #### 3 094-0 #### [facility] ([id number]) [address] [place] [address] Chloride [Moles/Vol] 100 mmol/L Normal 98-109 [facility] Comment on above: Performed By: #### 3 094-0 #### [facility] ([id number]) [address] [place] [address] CO2 [Moles/Vol] 32 mmol/L Normal 22-32 [facility] Comment on above: Performed By: #### 3 094-0 #### [facility] ([id number]) [address], [address] [place] [address] Creatinine [Mass/Vol] 7.52 mg/dL High 0.60-1.30 [facility] Comment on above: Result Comment: METH OD TRACEABLE TO IDMS STANDARD Performed By: #### 3 094-0 #### [facility] ([id number]) [address], [address] [place] [address] GFR/1.73 sq M.predicted among non-blacks MDRD (S/P/Bld) [Vol rate/Area] 8 mL/min/{1.73_m2} Low >=60 [facility] Comment on above: Result Comment: Repo rted eGFR is based on the CKD-EPI 2020 equation that does not use a race coefficient. Performed By: #### 3 094-0 #### [facility] ([id number]) [address], [address] [place] [address] Glucose [Mass/Vol] 92 mg/dL Normal 65-99 [facility] Comment on above: Performed By: #### 3 094-0 #### [facility] ([id number]) [address], [address] [place] [address] Potassium [Moles/Vol] 5.2 mmol/L High 3.5-5.0 [facility] Comment on above: Performed By: #### 3 094-0 #### [facility] ([id number]) [address], [address] [place] [address] Protein [Mass/Vol] 6.8 g/dL Normal 6.0-8.0 [facility] Comment on above: Performed By: #### 3 094-0 #### [facility] ([id number]) [address], [address] [place] [address] Sodium [Moles/Vol] 145 mmol/L Normal 134-146 [facility] Comment on above: Performed By: #### 3 094-0 #### [facility] ([id number]) [address] [place] [address] Urea nitrogen [Mass/Vol] 48 mg/dL High 5-23 [facility] Comment on above: Performed By: #### 3 094-0 #### [facility] ([id number]) [address] [place] [address] LIPID PROFILEon 06-07-2025 Cholesterol [Mass/Vol] 140 mg/dL Low 150-200 [facility] Comment on above: Performed By: #### 3 094-0 #### [facility] ([id number]) [address], [address] [place] [address] Cholesterol in HDL [Mass/Vol] 44 mg/dL Normal >39 [facility] Comment on above: Result Comment: HDL <40 mg/dL - High Risk HDL > or = 40mg/dL- Desirable HDL >60 mg/dL - Negative Risk Performed By: #### 3 094-0 #### [facility] ([id number]) [address] [place] [address] Cholesterol in LDL [Mass/Vol] 68 mg/dL Normal <130 [facility] Comment on above: Result Comment: LDL <100 mg/dL - Desirable LDL >160 mg/dL - High Risk Performed By: #### 3 094-0 #### [facility] ([id number]) [address] [place] [address] CHOLESTEROL:HDL 3.2 Normal 1.0-5.0 [facility] Comment on above: Performed By: #### 3 094-0 #### [facility] ([id number]) [address] [address] Triglyceride [Mass/Vol] 139 mg/dL Normal 27-150 [facility] Comment on above: Performed By: #### 3 094-0 #### [facility] ([id number]) [address] [address] VERY LOW LIPOPROTEIN 28 mg/dL Normal 0-30 [facility] Comment on above: Performed By: #### 3 094-0 #### [facility] ([id number]) [address] [address] PROSTATIC SPECIFIC ANTIGEN S CREENon 06-07-2025 PROSTATIC SPEC ANT 0.75 ng/mL Normal 0.00-4.00 [facility] Comment on above: Result Comment: The method used for this test is Tevin Slaughters DXI chemiluminescent immunoassay. Values obtained by different assay methods cannot be used interchangeably. Performed By: #### 3 094-0 #### [facility] ([id number]) [address] [address] TSHon 06-07-2025 TSH 1.97 uIU/mL Normal 0.49-4.67 [facility] Comment on above: Performed By: #### 3 094-0 #### [facility] ([id number]) [address] [place] [address] 36on 05-31-2025 36 Left messagef or pt to schedule follow up apt, over due Normal [facility] BASIC METABOLIC PANELon 05-07 Anion gap [Moles/Vol] 17 mmol/L High 5-15 [facility] Comment on above: Performed By: #### B MP #### [facility] ([address] [address] VIR Calcium [Mass/Vol] 8.6 mg/dL Normal 8.5-10.5 [facility] Comment on above: Performed By: #### B MP #### [facility] ([address] [address] VIR Chloride [Moles/Vol] 101 mmol/L Normal 98-109 [facility] Comment on above: Performed By: #### B MP #### [facility] ([address] [address] VIR CO2 [Moles/Vol] 26 mmol/L Normal 22-32 [facility] Comment on above: Performed By: #### B MP #### [facility] ([address] [address] VIR Creatinine [Mass/Vol] 7.85 mg/dL High 0.70-1.20 [facility] Comment on above: Result Comment: METH OD TRACEABLE TO IDMS STANDARD Performed By: #### B MP #### [facility] ([address] [address] VIR GFR/1.73 sq M.predicted among non-blacks MDRD (S/P/Bld) [Vol rate/Area] 8 mL/min/{1.73_m2} Low >=60 [facility] Comment on above: Result Comment: eGFR not reported due to non-numeric value for Creatinine. Reported eGFR is based on the CKD-EPI 2020 equation that does not use a race coefficient. Performed By: #### B MP #### [facility] ([address] [address] VIR Glucose [Mass/Vol] 92 mg/dL Normal 65-99 [facility] Comment on above: Performed By: #### B MP #### [facility] ([address] [place] [address] VIR Potassium [Moles/Vol] 4.2 mmol/L Normal 3.5-5.0 [facility] Comment on above: Performed By: #### B MP #### [facility] ([address] [place] [address] VIR Sodium [Moles/Vol] 144 mmol/L Normal 134-146 [facility] Comment on above: Performed By: #### B MP #### [facility] ([address] [place] [address] VIR Urea nitrogen [Mass/Vol] 56 mg/dL High 5-23 [facility] Comment on above: Performed By: #### B MP #### [facility] ([address] [address] VIR CBC WITH AUTO DIFFERENTIALon 05-25-2025 BASOPHILS ABSOLUTE COUNT (10*3/UL) BY AUTOMATED COUNT 0.1 10*3/uL Normal 0.0-0.2 [facility] Comment on above: Performed By: #### C BCA #### [facility] ([address] [address] VIR BASOPHILS RELATIVE PERCENT BY AUTOMATED COUNT 0.7 % Normal [facility] Comment on above: Performed By: #### C BCA #### [facility] ([address] [place] [address] VIR CELLAVISION DIFFERENTIAL TYPE AUTOMATED DIFFERENTIAL Normal [facility] Comment on above: Performed By: #### C BCA #### [facility] ([address] [address] VIR Eosinophils (Bld) [#/Vol] 0.4 10*3/uL Normal 0.0-0.4 [facility] Comment on above: Performed By: #### C BCA #### [facility] ([address] [place] [address] VIR EOSINOPHILS RELATIVE PERCENT BY AUTOMATED COUNT 2.8 % Normal [facility] Comment on above: Performed By: #### C BCA #### [facility] ([address] [place] [address] VIR Erythrocyte distribution width (RBC) [Ratio] 15.8 % High 11.5-15 [facility] Comment on above: Performed By: #### C BCA #### [facility] ([address] [place] [address] VIR Hematocrit (Bld) [Volume fraction] 30.8 % Low 39-50 [facility] Comment on above: Performed By: #### C BCA #### [facility] ([address] [address] VIR Hemoglobin (Bld) [Mass/Vol] 10.3 g/dL Low 13-17 [facility] Comment on above: Performed By: #### C BCA #### [facility] ([address] [address] VIR LYMPHOCYTES ABSOLUTE COUNT (10*3/UL) BY AUTOMATED COUNT 1.8 10*3/uL Normal 1.0-3.5 [facility] Comment on above: Performed By: #### C BCA #### [facility] ([address] [place] [address] VIR LYMPHOCYTES RELATIVE PERCENT BY AUTOMATED COUNT 12.5 % Normal [facility] Comment on above: Performed By: #### C BCA #### [facility] ([address] [address] VIR MCH (RBC) [Entitic mass] 30.3 pg Normal 27-34 [facility] Comment on above: Performed By: #### C BCA #### [facility] ([address] [place] [address] VIR MCHC (RBC) [Mass/Vol] 33.3 g/dL Normal 32-36 [facility] Comment on above: Performed By: #### C BCA #### [facility] ([address] [place] [address] VIR MCV (RBC) [Entitic vol] 91 fL Normal 80-100 [facility] Comment on above: Performed By: #### C BCA #### [facility] ([address] [place] [address] VIR MONOCYTES ABSOLUTE COUNT (10*3/UL) BY AUTOMATED COUNT 1.3 10*3/uL High 0.0-0.9 [facility] Comment on above: Performed By: #### C BCA #### [facility] ([address] [place] [address] VIR MONOCYTES RELATIVE PERCENT BY AUTOMATED COUNT 8.7 % Normal [facility] Comment on above: Performed By: #### C BCA #### [facility] ([address] [address] VIR NEUTROPHILS ABSOLUTE COUNT BY AUTOMATED COUNT 11.0 10*3/uL High 1.5-6.6 [facility] Comment on above: Performed By: #### C BCA #### [facility] ([address] [place] [address] VIR NEUTROPHILS RELATIVE PERCENT BY AUTOMATED COUNT 75.3 % Normal [facility] Comment on above: Performed By: #### C BCA #### [facility] ([address] [place] [address] VIR Platelet mean volume (Bld) [Entitic vol] 8.1 fL Normal 7-12 [facility] Comment on above: Performed By: #### C BCA #### [facility] ([address] [place] [address] VIR Platelets (Bld) [#/Vol] 244 10*3/uL Normal 150-450 [facility] Comment on above: Performed By: #### C BCA #### [facility] ([facility]) [address] [place] [address] VIR RBC COUNT 3.39 X10E12/L Low 4.1-5.7 [facility] Comment on above: Performed By: #### C BCA #### [facility] ([facility]) [address] [place] [address] VIR WBC (Bld) [#/Vol] 14.7 10*3/uL High 4-11 [facility] Comment on above: Performed By: #### C BCA #### [facility] ([address] BRAIN WO CONTon CT BRAIN WO CONT CT BRAIN WO CONT CT BRAIN WO CONT CLINICAL HISTORY: Syncope [...] Hossein Guerrero MD on 05/25/2025 7:07 AM Normal [facility] LIVER PANELon 05-25-2025 Albumin [Mass/Vol] 3.5 g/dL Normal 3.2-5.3 [facility] Comment on above: Performed By: #### L IVR #### [facility] ([facility]) [address] [place] [address] VIR ALP [Catalytic activity/Vol] 89 U/L Normal 39-130 [facility] Comment on above: Performed By: #### L IVR #### [facility]) [address] [place] [address] VIR ALT [Catalytic activity/Vol] 29 U/L Normal <=40 [facility] Comment on above: Performed By: #### L IVR #### [facility] ([address] [place] [address] VIR AST [Catalytic activity/Vol] 18 U/L Normal <=41 [facility] Comment on above: Performed By: #### L IVR #### [facility] ([address] [place] [address] VIR Bilirubin [Mass/Vol] 0.6 mg/dL Normal 0.3-1.2 [facility] Comment on above: Performed By: #### L IVR #### [facility] ([address] [place] [address] VIR Bilirubin.indirect [Mass/Vol] 0.2 mg/dL Normal <=0.4 [facility] Comment on above: Performed By: #### L IVR #### [facility] ([address] [place] [address] VIR Protein [Mass/Vol] 7.3 g/dL Normal 6.0-8.0 [facility] Comment on above: Performed By: #### L IVR #### [facility] ([address] [place] [address] VIR MAGNESIUMon 05-25-2025 Magnesium [Mass/Vol] 2.2 mg/dL Normal 1.8-2.6 [facility] Comment on above: Performed By: #### M G #### [facility] ([address] [place] [address] VIR TROP I, HIGH SENSITIVITY 1 H OURon 05-25-2025 TROPONIN I, HIGH SENSITIVITY 25 ng/L High <21 [facility] Comment on above: Order Comment: [place] tions of hs-Troponin may be due to causesother than myocardial ischemia.Recommend serial hs-Troponin testing be performed.For the initial evaluation and management of chestpain patients, refer to the algorithms linked below.Emergency Patient:[email or web address]:[email or web address] Performed By: #### 3 [id number] #### [facility] ([id number]) [address], [address] [place] [address] TROPONIN I, HIGH SENSITIVITY 0 HOURon 05-25-2025 TROPONIN I, HIGH SENSITIVITY 27 ng/L High <21 [facility] Comment on above: Performed By: #### T NIHS0 #### [facility] ([facility]) [address] [place] [address]. [place] [address] VIR XR CHEST 1 VWon 05-25-2025 XR CHEST 1 VW XR CHEST 1 VW Single view chest History:syncope Difficulty breathing, shortness of breath Comparison: 08/09/2023 Findings: Single portable view of the chest. Stable cardiomegaly mediastinal silhouette. No new focal opacity, effusion or pneumothorax. Impression: No definitive acute cardiopulmonary process. Finalized by Tyesha Clemons MD on 05/25/2025 7:09 AM [address] [facility] CT ABDOMEN PELVIS WO IV CONT RASTon 05-24-2025 CT ABDOMEN PELVIS WO IV CONTRAST CT ABDOMEN AND PELVIS WITHOUT INTRAVENOUS CONTRAST [...] Multilevel degenerative changes in the spine. IMPRESSION: * Enlarged right external iliac lymph nodes remain, stable to slightly smaller in size since previous study. No newly enlarged abdominal/pelvic lymph nodes. Electronically signed: Donal Aguilera MD. Not Vldtd Invalid Interpretation Code [facility] HbA1c (Bld) [Mass fraction]o n 05-22-2025 Interpretation and review of laboratory results Abnormal [facility] - Hematology and Cell countson 05-22-2025 HbA1c (Bld) [Mass fraction] 8.6 % [facility] Coding Summaryon 05-16-2025 Coding Summary HTMLBase 64 OeggflifSVd5kFr+PGhlYWQ +DJ1BOOJjR80ziBEulE6aK0 NMTElOSywgQVBQTElOSyIgb bHtPV7sjOXbODJm IC8+UY9nZLMiCaotuVPcv4C 7aZO4L55kxy1oBDmqbVI2SO DdXvMscvpqk4sxiRe8HBktB mluOyBt JAFnzN31XMR7oL32Wi41rLW xcINff8suqIh2GrBmFMOaND P2mScnKHtwq4SvSOQmX28lh SFnc8T4 JELwvDslnEQwIxRemQB1jZ6 rZYrqyfndo3kmhtklYyn0mt 61gGIsm1V8oML9O0IatsF3C GJvbGQg BnkbtDRMoO7qbjgug1jbqcv eQmIaVIDmTZj8ZUk0VKLujE wnYkMoLZ22KMO2JWKswdVgL 2FsLWFs jYrzTpS0l7W0Gs0MS7ARYte vT1DRUFVNJIoemXM+PC90cj 84H4VeXrbuBpx2DFHiGTY9p XR4dH2n OHAiQYmao0R7lKU2A7ZljsS cvi5pz3skZLKyTUreJ08ibY Nfx8K1AKRxjDR9BFZlvXfmM iBzaG93 Oyc+IQEbhMqrv1MbJjmga1a wa2hziKg3VisvUVHvesDfaC ohNSV1n2ErCb3hDTQizQM5f VF8hB4v UcTaUeY6MNatO831MdLruOG uIeuxE16tF2MspNC+PHRyPj h0LSCxpIrxUS0dG9NcQJKki mctbGVm fYtgNH9gWZVxkblqIGFtsZ3 zHQFbY7z7SjYgKoZ1HJhpE4 McVNHkwbsnVs28zH6zItMjI jE0JTjw D9SxrmC7GIGesNHyZKggOIR 6D98tg1D0ERNvGBAfWCR4xG E6hG0hdWbqpigpwENpdHvae mVydGlj OImxNWuyF278SFVdrBnmNlP vZGluZyBEYXRlOiAgMDkvMT AvMjAyNTwvdGQ+NRUqUSP6f WxlPSAn dXLpLJqqMz4psYvwaZkhBD4 jNUPcfoqmTUOppS7kMHNzwX NpgCopAV4yMNZgjfabe843F iAxMHB0 EVLwtOMuQ7ZrjL0iCjMmDEQ qEIWcI2BziBXaXCtrY480MP zxWzO0HABmpdXsN1QbKDVqn WduOiB0 y9S2St0Xg2ZefcdeC9SoxGI eOmBjIxzvGEn4V6QgCemgjR I+FR35XTJvTW48EHt8MMM7h WxlPSdi HXCjH6PizD7dYdLcMLStXJN kOyc+PHRhYmxlIHdpZHRoPS dqAMNePjIacJgrVQ8oFx4wG GVyLWNv fDshzZRwZuShr2gwHTUrOAd zTV8huBpuX5QstSO6CRFdx4 n2Lp35O22fM5VoiWA+PGNvb XI2jPW5 aF3bXuExGoR0QLuwF464OcE esAEpAovzl4ugl6bpuWc5Zc L5OVBeujXgpVpaEMB3m0IsV h84U15e IHdpZHRoPSIxNSUiIHZhbGl wbb1hnR3vKf3+XQWahAF7cU M3cL2cLgSzYaA1NVqwY480E nRvcCIv Qxkfo5jly8ibwXo9NrWqYWE dgvSqdNuzAGL2u1MvMx18B5 CbvBzcb6KxEfc5kg71yAYqr 5P5pDG9 N8IbBGZdbvbxiMTpdCipBA3 oTQEjxsbwYDUzeY8hPHQeE4 g9WgVcLqI3BMnqI3AtcoL0Y GJvbGQg PZUfuLQJzR4hwiamf7fvssv xSuTvEBZmYNe7DYg8TTZkhI rfBuNnWKF6HjD3LNP2aBTes E6gjTfe lvyslV1mLhr+ILY9xRWhiEB HHD4jAntqkEE+PCVtGGF1kA lwUVutQHOkiM9tXDBuM0o2N iAwLjA1 JGrcV7TpkhI5LNIjdRDnTMN xsXGCpT1dcptgk4dmanytEt DlXCOgAVt3ZXy8KXIrzFneW iBsZWZ0 MfX1ALC8gUJtlW6doFxnyzc prG8fWnr+DwxvvUnqVKA7XZ a8S9QpXgt6DIUawYueQS9iu GFkZGlu Tv2kmEnbnVfqWR3fVCBtkca ax528PmFli1ovNIDsrNJoLY yqTWL2H93ri9F6YRNsFZEyK QV1nUY3 jU4vrLzdmgeakRYhaChaigU nmYxnYDdbDRaaV964CXGyeI rtUxRsDMk8F0ScDpq9FYHpw ObwCX7j oIOkQIdyCj2igSvbdMvxWP3 dFSQaoqtsp380PdNku0qlPP IugLFxXPcsSGZ8Z28sl4D8Y CMwMDAw HXL8oNG1pN1uuJqpbwynaCI mdDsgdmVydGljYWwtYWxpZ2 40CYUuoMpcIlAtvUd0O9YtM le6EOHp jYuzSO3udWKaXZzcQy4ksSc ixXcvOA6sPBGqumgmf807Id Eex8ekPILeaYKhQQtfQPQ7Y 16uk0G2 OOKmTCOvWXK1eVU4wL5ckGi nbjogbGVmdDsgdmVydGljYW asPScjT211PLCfiJkgIyHhe GllbnQg MDmrHFg7U8GrYsrozIM+PC9 4WKCqTS02mVFuyCGvd9oxpC r5QaQpAXLpKVT9mNhkFMjrh 3JkZXIt C28huIVrs8U6IITukGnwhHY xTlLmhVD9fB9eAUjrpyoxr7 uvhxkkGsedg1jekr41eO22H 29sIHdp ZHRoPSIzMCUiIHZhbGlnbj0 woQ7lIw2+FFXyjOA5pQK1wJ 4jBYZxYcK4GIncC633YwWll CIvPjxj g3mgw2xjjBr1DxN0ZFWoraQ ztSaaZLF3y0FcBq04O20pUQ dpZHRoPSIyMCUiIHZhbGlnb u9vnW4v Ii8+REVqbIQ2fWY5eL7aLcQ dAiZ7JMhkU910McEekIBzBp raU50vD8PbpEM+WGOnNoz7J CBzdHls XM1dxULbZGzcSr2aDLB2PxS dJlRlAMnpT1AxOZEgipbyzx pvlFP8LTTkRHUmrT42Rr8js DogMTBw oYBEnA6gaxzsc1hzdemhWcH lUVIzINu5EEs9UIXexIjhTb IpYZB1NpV0XIH9cEByzG9bv Glnbjog nN8nK5RsKKGwmwyvTf99bC0 yDnJpAqU6OYahRyc+S09XQU aPK4lqMYPKZ76GClSSOE69N S59dVRn o1S2tUA2L8LsMJOkkqwhgyl ofAE1NTTyWAItsS46fVBuID bmZx6pq1X2c431OOWvFVHqk J15Zq7p nZoiNRIqjRZLoJ6yxxepw1g taxkzRkAxUFKyFQf3AAv2IK DekRriFpAkTIT4XxB3AYD4t VNuiW1a kEnkuiscmG7yZnw+MDUvMDc eLWn0PDymfXJ+AFFaYEJ0bH ykRPczPXMhxB5wSVTuG2g3K iAwLjA1 BMdoX8PpACYzzfgtGe09yM8 bHuSjRlX6NBtsA5RezpA8MD IcyLFqLCghLKC4W79rk7X2Q CMwMDAw LGY4mGZ9eS6cuOykewnzpWD mdDsgdmVydGljYWwtYWxpZ2 64ABBevLxeKmW6OYfoYOTyY A66CS36 oWQhb3U0yLI9T4ZhSOZtmsy hqadbkYD1BUIuUTAwmH10dE MbZTobSw1db1Q2e796BCWyN DUwaW47 Wl0tgOelWKIcqYMDxL2cmvz kh0hktyckAjUjBAFeDPr1PK z4WRTxgHqrXbYtLYU0QoZ3B QW2lDDg hF4etOtcmtcasB6rHwm+TUF MRTwvdGQ+SGNrXPW3lQyeUK fsVSZiaU4dTOKyK5q4KtVrQ vC7SYso I7YeCIOnfdpcVq41iL6lQpS bZxR1LUnwA1ThzsL1BFPbfT WtIUngULT1M22nw0T5WJEwV DAwMDA7 kDG4pH2raOtyibwzaJJgwUs ljiTmiYooYCybKRvvU248IL JtbPvlZcDgCFQuQZ5zbWhss GQ+PC90 to77R0OxGrjhLsb2BLLyPUS 3zOM2jP5rVJPdXFjjv4H3gU B2K5VjnxZybv8ou8vuGGIkC YnuL01x lYGwz7L3WFTuuYW2VIBrbDa sLjQuvM16Qmo+PGNvbGdyb3 BzFszwz0rlu1kahCj1AnKcL SIgdmFs pRbxWDZ1m6XmId30O60lYHi pZHRoPSIzMCUiIHZhbGlnbj 4rvI8rHz1+MWVjvHD9vLZ3s U3tFrZo MwO0BXkeC961CnIjsBZdRix mg9bwf0pqdWt1YoHkNISgpb VlgMjlPLE7x6VgSr46K7Plg Afzt3Bu Uwx2gl08qIIcj8X3rNL4H6Q iYEExxfyroFGvvNvfGU3bIX NwatlrMBGbwT4uSUTyY7u9Y iAwLjA1 PRfyE9DxswF1WEHbfPAhKVS agOARuL3sgkaqr3fuouqdXv WvBZJlTEp1NPx1URUhuFgmU iBsZWZ0 QrI6ECF3yHDluF8igIoqqxx hjZ3jFfs+AUl9u6evhWStKV 2vwCW1AF02MY12mXJbr5M4d TA8L4Pv RZDzkurhznyzsIT8LAYdQIQ uwA53Jf2aeZqaOj9vOFLtYI B0RGHqzXNmT3YnaS6wLuAzJ DAwMDAw Q3HuyVJkDVkvY657TBdzUgB 7CBVrjmWgL8GwRCLxmWjsIc F1d3L9Cc0YGC99EB06XD50z JWvp1J8 mNG8P7KvPABepzzsltdqtJV 9ODZdAUUteK73Wx1akKacCf 1cJTOgAGO9TAAosRFcT5Dyy P9eUpSf JLEzXRKsR3StiOVwMLrrR49 1KOiaUiM6FLKyniHgX8UxVC DxdQfeYfY1o0E9Eb6HDe13Y M95GI08 wXNff8A3uMI1T8WqRDBpkky eopfbaAR6LZYtKLSiyE17Hc 6adIyiYa1hNPJzKSB0WLAxt TTzN0Rd iM7bSiYgEAQaVVVsN4VlwIQ sLXcoF651LBlyNzF1CPEjms SrZ3VxUUJlbZilJlR2q8O1F k6KFQaz hfl3W1YdQvrtwSQ+VI00ULP pRN40jPYwdPSjw2zrkRi2Cs AaIDLdYNQ8sDvkXWutz3ZqX SQhE73f bGF (more content not included)... [facility] 36on 05-11-2025 36 TC contacted patient for update on work up. Patient states still working on dental, pain management, podiatry, and hem/onc. Patient informed he will need to be seen for re-evaluation in July, and cardiac will need to be updated in July. Patient states understanding and will keep TC updated. Melinda Hidalgo, JACOB [facility] BEDSIDE GLUCOSEon 04-27-2025 Glucose [Mass/Vol] 90 mg/dL Normal 65-99 [facility] Comment on above: Performed By: #### B EDG #### [facility]) [address] [place] [address]. [place] [address] VIR Alanine aminotransferase [En zymatic activity/volume] in Serum or PlasmaOrdered By: Will Cerna on 03-26-2025 ALT [Catalytic activity/Vol] 16 U/L Normal 7-52 [facility] Comment on above: Performed By: #### C RP, BMP, CBC, ESR #### [facility] [address] [place] [address] [place] Albumin [Mass/volume] in Ser um or Plasma by Bromocresol green (BCG) dye binding methoOrdered By: Will Cerna on 03-26-2025 Albumin BCG dye [Mass/Vol] 4.3 g/dL 3.5-5.7 [facility] Alkaline phosphatase [Enzyma tic activity/volume] in Serum or PlasmaOrdered By: Will Cerna on 03-26-2025 ALP [Catalytic activity/Vol] 107 U/L High 34-104 [facility] Comment on above: Performed By: #### C RP, BMP, CBC, ESR #### [facility] [address] Aspartate aminotransferase [ Enzymatic activity/volume] in Serum or PlasmaOrdered By: Will Cerna on 03-26-2025 AST [Catalytic activity/Vol] 11 U/L Low 13-39 [facility] Comment on above: Performed By: #### C RP, BMP, CBC, ESR #### [address] Basic Metabolic Panelon 03-07 Creatinine Clr Calc Pharmacy 14.00 Normal [facility] Comment on above: Result Comment: PERF ORMED BY: [place] [address] PATHOLOGIST [employer] TECHNICIAN KWADWO SMITH M.D. Performed By: #### C RP, BMP, CBC, ESR #### [facility] [address] [place] [address] [place] GFR/1.73 sq M.predicted MDRD (S/P/Bld) [Vol rate/Area] 6.133 mL/min/{1.73_m2} Normal [facility] Comment on above: Performed By: #### C RP, BMP, CBC, ESR #### [facility] [address] [place] [address] [place] Basophils [#/volume] in Bloo d by Automated countOrdered By: Will Cerna on 03-26-2025 Basophils (Bld) [#/Vol] 0.1 10*3/uL Normal 0.0-0.2 [facility] Comment on above: Result Comment: PERF ORMED BY: [place] [address] PATHOLOGIST [employer] TECHNICIAN KWADWO SMITH M.D. Performed By: #### C RP, BMP, CBC, ESR #### [address] Basophils/100 leukocytes in Blood by Automated countOrdered By: Will Cerna on 03-26-2025 Basophils/100 WBC (Bld) 0.9 % Normal . [facility] Comment on above: Performed By: #### C RP, BMP, CBC, ESR #### [address] Bilirubin.direct [Mass/volum e] in Serum or PlasmaOrdered By: Will Cerna on 03-26-2025 Bilirubin.direct [Mass/Vol] 0.10 mg/dL 0.03-0.18 [facility] Bilirubin.total [Mass/volume ] in Serum or PlasmaOrdered By: Will Cerna on 03-26-2025 Bilirubin [Mass/Vol] 0.4 mg/dL Normal 0.3-1.0 [facility] Comment on above: Performed By: #### C RP, BMP, CBC, ESR #### [facility] [address] [place] [address] Calcium [Mass/volume] in Ser um or PlasmaOrdered By: Will Cerna on 03-26-2025 Calcium [Mass/Vol] 9.9 mg/dL Normal 8.6-10.3 [facility] Comment on above: Performed By: #### C RP, BMP, CBC, ESR #### [address] Capillary blood glucose shante urement by glucometer (mass/volume)Ordered By: Will Cerna on 03-26-2025 Glucose [Mass/Vol] 115 mg/dL Normal [facility] Comment on above: Random Glucose Refer ence Range is dependent on time and content of last meal. Glucose of more than 200 mg/dL in a nonstressed, ambulatory subject supports the diagnosis of Diabetes Mellitus. Result Comment: [place] Glucose Reference Range is dependent on time and content of last meal. Glucose of more than 200 mg/dL in a nonstressed, ambulatory subject supports the diagnosis of Diabetes Mellitus. PERFORMED BY: [place] [address] PATHOLOGIST [employer] TECHNICIAN KWADWO SMITH M.D. Performed By: #### C RP, BMP, CBC, ESR #### [address] Carbon dioxide, total [Moles /volume] in Serum or PlasmaOrdered By: Will Cerna on 03-26-2025 CO2 [Moles/Vol] 24.9 mmol/L Normal 21.0-31.0 [facility] Comment on above: Performed By: #### C RP, BMP, CBC, ESR #### [address] Chloride [Moles/volume] in S james or PlasmaOrdered By: Will Cerna on 03-26-2025 Chloride [Moles/Vol] 102 mmol/L Normal 98-107 [facility] Comment on above: Performed By: #### C RP, BMP, CBC, ESR #### [address] Complete Blood Count Auto Di ffon 03-26-2025 Mean Corpuscular HGB Conc 34.0 g/dL Normal 32.5-35.6 [facility] Comment on above: Performed By: #### C RP, BMP, CBC, ESR #### [place] [address] [place] Monocytes/100 WBC (Bld) 16.12 % Normal 0.00-20.00 [facility] Comment on above: Performed By: #### C RP, BMP, CBC, ESR #### [place] [address] [place] NRBC% 0.0 /100{WBC} Normal 0-0.5 [facility] Comment on above: Performed By: #### C RP, BMP, CBC, ESR #### [facility] [address] White Blood Count 10.7 [CFU]/mL High 4.1-10.5 [facility] Comment on above: Performed By: #### C RP, BMP, CBC, ESR #### [facility] [address] Creatinine [Mass/volume] in Serum or PlasmaOrdered By: Will Cerna on 03-26-2025 Creatinine [Mass/Vol] 9.33 mg/dL High 0.70-1.30 [facility] Comment on above: Performed By: #### C RP, BMP, CBC, ESR #### [facility] [address] ECG 12 lead ECGon 03-26-2025 ECG 12 lead ECG [facility] [place] [address] [place] [address] Electrocardiograph Report Signed Patient: Evans Forte MR#: [id number] : 1970 Acct:[id number] Age/Sex: 55 / M ADM Date: 03/26/25 Loc: ER Room: Type: [facility] ER Attending Dr: Ordering Provider: Will Cerna [...] sinus rhythm Confirmed by Chong DIXON DO ([id number]) on 03/26/2025 7:13:58 PM Referred By: Electronically Signed By: Chong DIXON DO Transcribed By: MUS Signed By Chong Dixon DO 0 03/26/251913 Normal [facility] Eosinophils [#/volume] in Bl ood by Automated countOrdered By: Will Cerna on 03-26-2025 Eosinophils (Bld) [#/Vol] 0.4 10*3/uL Normal 0.0-0.45 [facility] Comment on above: Performed By: #### C RP, BMP, CBC, ESR #### [address] Eosinophils/100 leukocytes i n Blood by Automated countOrdered By: Will Cerna on 03-26-2025 Eosinophils/100 WBC (Bld) 3.5 % Normal . [facility] Comment on above: Performed By: #### C RP, BMP, CBC, ESR #### [address] Erythrocyte distribution wid th [Ratio] by Automated countOrdered By: Will Cerna on 03-26-2025 Erythrocyte distribution width (RBC) [Ratio] 14.6 % Normal 12.0-14.8 [facility] Comment on above: Performed By: #### C RP, BMP, CBC, ESR #### [address] Erythrocytes [#/volume] in B lood by Automated countOrdered By: Will Cerna on 03-26-2025 RBC (Bld) [#/Vol] 3.66 10*6/uL Low 3.90-5.60 [facility] Comment on above: Performed By: #### C RP, BMP, CBC, ESR #### [address] Glucose Poct Glucometerson 0 03-26-2025 Commemt1 Normal [facility] Comment on above: Result Comment: Glu2 : WILL NOTIFY DR/RN PERFORMED BY: [place] [address] PATHOLOGIST [employer] TECHNICIAN KWADWO SMITH M.D. Performed By: #### C RP, BMP, CBC, ESR #### [address] Glucose [Mass/Vol] 53 mg/dL Off scale low [facility] Comment on above: Result Comment: [place] Glucose Reference Range is dependent on time and content of last meal. Glucose of more than 200 mg/dL in a nonstressed, ambulatory subject supports the diagnosis of Diabetes Mellitus. Performed By: #### C RP, BMP, CBC, ESR #### [facility] [address] Commemt1 Normal [facility] Comment on above: Result Comment: Glu2 : WILL NOTIFY DR/RN PERFORMED BY: [place] [address] PATHOLOGIST [employer]IL[employer] LAB TECHNICIAN KWADWO SMITH M.D. Performed By: #### C RP, BMP, CBC, ESR #### [address] Glucose [Mass/Vol] 53 mg/dL Off scale low [facility] Comment on above: Result Comment: [place] om Glucose Reference Range is dependent on time and content of last meal. Glucose of more than 200 mg/dL in a nonstressed, ambulatory subject supports the diagnosis of Diabetes Mellitus. Performed By: #### C RP, BMP, CBC, ESR #### [address] Glucose [Mass/Vol] 60 mg/dL Off scale low [facility] Comment on above: Result Comment: [place] om Glucose Reference Range is dependent on time and content of last meal. Glucose of more than 200 mg/dL in a nonstressed, ambulatory subject supports the diagnosis of Diabetes Mellitus. PERFORMED BY: [place] [address] PATHOLOGIST NITRILES LAB TECHNICIAN KWADWO SMITH M.D. Performed By: #### C RP, BMP, CBC, ESR #### [place] [address] [place] Glucose [Mass/volume] in Ser um or PlasmaOrdered By: Will Cerna on 03-26-2025 Glucose [Mass/Vol] 46 mg/dL Off scale low 70-100 [facility] Comment on above: Critical Result Call [...] #### C RP, BMP, CBC, ESR #### [address] Hematocrit [Volume Fraction] of Blood by Automated countOrdered By: Will Cerna on 03-26-2025 Hematocrit (Bld) [Volume fraction] 33.8 % Low 38.8-50.0 [facility] Comment on above: Performed By: #### C RP, BMP, CBC, ESR #### [address] Hemoglobin [Mass/volume] in BloodOrdered By: Will Cerna on 03-26-2025 Hemoglobin (Bld) [Mass/Vol] 11.5 g/dL Low 13.0-17.0 [facility] Comment on above: Performed By: #### C RP, BMP, CBC, ESR #### [address] Hepatic Panelon 03-26-2025 Albumin [Mass/Vol] 4.3 g/dL Normal 3.5-5.7 [facility] Comment on above: Performed By: #### C RP, BMP, CBC, ESR #### [address] Bilirubin,Indirect 0.3 mg/dL Normal [facility] Comment on above: Performed By: #### C RP, BMP, CBC, ESR #### [address] Bilirubin.indirect [Mass/Vol] 0.10 mg/dL Normal 0.03-0.18 [facility] Comment on above: Performed By: #### C RP, BMP, CBC, ESR #### [address] Leukocytes [#/volume] correc scott for nucleated erythrocytes in Blood by Automated counOrdered By: Will Cerna on 03-26-2025 WBC corrected for nucl RBC Auto (Bld) [#/Vol] 10.7 10*3/uL High 4.1-10.5 [facility] Leukocytes [#/volume] in Blo od by Automated countOrdered By: Will Cerna on 03-26-2025 WBC (Bld) [#/Vol] 10.7 10*3/uL High 4.1-10.5 [facility] Comment on above: Performed By: #### C RP, BMP, CBC, ESR #### [facility] [address] Lymphocytes [#/volume] in Bl ood by Automated countOrdered By: Will Cerna on 03-26-2025 Lymphocytes (Bld) [#/Vol] 2.3 10*3/uL Normal 1.00-4.8 [facility] Comment on above: Performed By: #### C RP, BMP, CBC, ESR #### [facility] [address] [place] [address] Lymphocytes/100 leukocytes i n Blood by Automated countOrdered By: Will Cerna on 03-26-2025 Lymphocytes/100 WBC (Bld) 21.9 % Normal . [facility] Comment on above: Performed By: #### C RP, BMP, CBC, ESR #### [facility] [address] [place] [address] MCH [Entitic mass] by Automa scott countOrdered By: Will Cerna on 03-26-2025 MCH (RBC) [Entitic mass] 31.4 pg Normal 27.5-35.2 [facility] Comment on above: Performed By: #### C RP, BMP, CBC, ESR #### [facility] [address] [place] [address] MCHC Auto (RBC) [Mass/Vol]Or dered By: Will Cerna on 03-26-2025 MCHC (RBC) [Mass/Vol] 34.0 g/dL 32.5-35.6 [facility] MCV [Entitic volume] by Auto mated countOrdered By: Will Cerna on 03-26-2025 MCV (RBC) [Entitic vol] 92.3 fL Normal 83.5-101 [facility] Comment on above: Performed By: #### C RP, BMP, CBC, ESR #### [address] Monocyte distribution width [Entitic volume] in Blood by AutomatedOrdered By: Will Cerna on 03-26-2025 Monocyte distribution width Auto (Bld) [Entitic vol] 16.12 % 0.00-20.00 [facility] Monocytes [#/volume] in Bloo d by Automated countOrdered By: Will Cerna on 03-26-2025 Monocytes (Bld) [#/Vol] 0.9 10*3/uL High 0.0-0.8 [facility] Comment on above: Performed By: #### C RP, BMP, CBC, ESR #### [address] Monocytes/100 leukocytes in Blood by Automated countOrdered By: Will Cerna on 03-26-2025 Monocytes/100 WBC (Bld) 8.3 % Normal . [facility] Comment on above: Performed By: #### C RP, BMP, CBC, ESR #### [address] Neutrophils [#/volume] in Bl ood by Automated countOrdered By: Will Cerna on 03-26-2025 Neutrophils (Bld) [#/Vol] 7.0 10*3/uL Normal 1.8-7.7 [facility] Comment on above: Performed By: #### C RP, BMP, CBC, ESR #### [address] Neutrophils/100 leukocytes i n Blood by Automated countOrdered By: Will Cerna on 03-26-2025 Neutrophils/100 WBC (Bld) 65.4 % Normal . [facility] Comment on above: Performed By: #### C RP, BMP, CBC, ESR #### [address] No Panel InformationOrdered By: Will Cerna on 03-26-2025 Bedside Glucose Comment See comment [facility] Comment on above: Glu2: WILL NOTIFY DR /RN Estimated GFR (CKD-EPI) 6.133 mL/Min [facility] Creatinine Clearance (Chem 14.00 [facility] Nucleated erythrocytes [Pres ence] in Blood by Automated countOrdered By: Will Cerna on 03-26-2025 Nucleated RBC Auto Ql (Bld) 0.0 /100{WBC} 0-0.5 [facility] Platelet mean volume [Entiti c volume] in Blood by Automated countOrdered By: Will Cerna on 03-26-2025 Platelet mean volume (Bld) [Entitic vol] 7.6 fL Normal 6.6-10.1 [facility] Comment on above: Performed By: #### C RP, BMP, CBC, ESR #### [address] Platelets [#/volume] in Bloo d by Automated countOrdered By: Will Cerna on 03-26-2025 Platelets (Bld) [#/Vol] 255 10*3/uL Normal 150-450 [facility] Comment on above: Performed By: #### C RP, BMP, CBC, ESR #### [address] Potassium [Moles/volume] in Serum or PlasmaOrdered By: Will Cerna on 03-26-2025 Potassium [Moles/Vol] 4.8 mmol/L Normal 3.5-5.1 [facility] Comment on above: Performed By: #### C RP, BMP, CBC, ESR #### [facility] [address] [place] [address] [place] Protein [Mass/volume] in Ser um or PlasmaOrdered By: Will Cerna on 03-26-2025 Protein [Mass/Vol] 8.0 g/dL Normal 6.4-8.9 [facility] Comment on above: Performed By: #### C RP, BMP, CBC, ESR #### [address] Serum globulin measurement b y calculation (mass/volume)Ordered By: Will Cerna on 03-26-2025 Globulin (S) [Mass/Vol] 3.7 g/dL [facility] Comment on above: Performed By: #### C RP, BMP, CBC, ESR #### [facility] [address] Serum or plasma albumin/glob ulin mass ratioOrdered By: Will Cerna on 03-26-2025 Albumin/Globulin [Mass ratio] 1.2 {ratio} [facility] Comment on above: Performed By: #### C RP, BMP, CBC, ESR #### [address] Serum or plasma anion gap de terminationOrdered By: Will Cerna on 03-26-2025 Anion gap [Moles/Vol] 15.9 mmol/L High 6.0-15.0 [facility] Comment on above: Performed By: #### C RP, BMP, CBC, ESR #### [address] Serum or plasma non-glucuron idated bilirubin measurement (mass/volume)Ordered By: Will Cerna on 03-26-2025 Bilirubin.indirect [Mass/Vol] 0.3 mg/dL [facility] Sodium [Moles/volume] in Ser um or PlasmaOrdered By: Will Cerna on 03-26-2025 Sodium [Moles/Vol] 138 mmol/L Normal 136-145 [facility] Comment on above: Performed By: #### C RP, BMP, CBC, ESR #### [facility] [address] [place] [address] Urea nitrogen [Mass/volume] in Serum or PlasmaOrdered By: Will Cerna on 03-26-2025 Urea nitrogen [Mass/Vol] 85 mg/dL High 7-25 [facility] Comment on above: Performed By: #### C RP, BMP, CBC, ESR #### [address] Laboratory - Drug toxicology Ordered By: Jey Ramos on 02-13-2025 Amphetamines Ql (U) Negative [facility] Benzodiazepines Ql (U) Positive [facility] Cocaine Ql (U) Negative [facility] Opiates Ql (U) Negative [facility] Phencyclidine Ql (U) Negative [facility] No Panel InformationOrdered By: Jeyandree Ramos on 02-13-2025 Urine Barbiturates Screen Negative [facility] Urine Marijuana (THC) Screen Positive [facility] ED Note-Physicianon 02-04-20 ED Note-Physician ED [...] for 3 day(s), 12 tab(s), Refill(s) 0, [id number], 187, cm, 02/02/25 18:12:00 EDT, Height/Length Dosing, [...] EDT [address], [address] [place] [address]- Business (1) Additional Instructions: Call Dr for diagnosis based follow up Patient Education Peripheral Neuropathy Acute Pain, Adult Neuropathic Pain Attestation Patient seen and evaluated by the physician fleet assistant. Attending physician was present in the emergency department and supervised care. This visit was performed by both the physician and an APC. I performed all aspects of the MDM as documented. This report was transcribed using voice recognition software. Every effort was made to ensure accuracy, however, inadvertently computerized benefits counselor mistakes may be present. Appropriate healthcare PPE [...] Use, 01/06 (more content not included)... Normal [facility] Comment on above: Result Comment: Elec tronically Signed By: Star Saucedo PA-C\.br\Date and Time Signed: 02/02/25 18:41 EDT\.br\Electronically Co-Signed By: Delano Benavides DO\.br\Date and Time Co-Signed: 02/03/25 06:04 EDT Basic Metabolic Panelon 01-06 Est, Glom Filt Rate 9 Low - PINF [facility] Comment on above: These results are not [...] Interpretation and review of laboratory results Abnormal [facility] Urea nitrogen/Creatinine [Mass ratio] 10 mg/mg 9 - 20 [facility] Basic Metabolic Profon 02-02 Anion gap [Moles/Vol] 16 mmol/L Normal 9-16 [facility] Comment on above: Performed By: #### B MP #### [facility] [address] [place] [address] Cleaning Professional: Meredith Nolen MD Calcium [Mass/Vol] 9.3 mg/dL Normal 8.6-10.4 [facility] Comment on above: Performed By: #### B MP #### [facility] [address] [place], [place] [phone] Cleaning Professional: Meredith Nolen MD Chloride [Moles/Vol] 98 mmol/L Normal 98-107 [facility] Comment on above: Performed By: #### B MP #### [facility] [address] [place], [place] [phone] Cleaning Professional: Meredith Nolen MD CO2 [Moles/Vol] 23 mmol/L Normal 20-31 [facility] Comment on above: Performed By: #### B MP #### [facility] [address] [place], [place] [phone] Cleaning Professional: Meredith Nolen MD Creatinine [Mass/Vol] 7.0 mg/dL Critically high 0.70-1.20 [facility] Comment on above: Performed By: #### B MP #### [address] [place], [place] [phone] Cleaning Professional: Meredith Nolen MD Glucose [Mass/Vol] 296 mg/dL High 74-99 [facility] Comment on above: Performed By: #### B MP #### [facility] [address] [place] [address] Cleaning Professional: Meredith Nolen MD Potassium [Moles/Vol] 6.1 mmol/L Critically high 3.7-5.3 [facility] Comment on above: Specimen hemolysis h as exceeded the interference as defined by Yaima. Value may be falsely increased. Suggest recollection if clinically indicated. Result Comment: Spec imen hemolysis has exceeded the interference as defined by Yaima. Value may be falsely increased. Suggest recollection if clinically indicated. Performed By: #### B MP #### [facility] [address] [place] [address] Cleaning Professional: Meredith Nolen MD Sodium [Moles/Vol] 137 mmol/L Normal 136-145 [facility] Comment on above: Performed By: #### B MP #### [facility] [address] [place], [place] [phone] Cleaning Professional: Meredith Nolen MD Urea nitrogen [Mass/Vol] 69 mg/dL High 6-20 [facility] Comment on above: Performed By: #### B MP #### [facility] [address] [place], [place] [phone] Cleaning Professional: Meredith Nolen MD BUN/CRE Ratio 10 Normal 9-20 [facility] Comment on above: Performed By: #### B MP #### [facility] [address] [place], [place] [phone] Cleaning Professional: Meredith Nolen MD GFR/1.73 sq M.predicted among non-blacks MDRD (S/P/Bld) [Vol rate/Area] 9 mL/min/{1.73_m2} Low >60 [facility] Comment on above: Result Comment: These [...] secretion. Performed By: #### B MP #### [facility] [address] [place] [address] Cleaning Professional: Meredith Nolen MD CBC with Auto Differentialon 02-02-2025 Basophils (Bld) [#/Vol] 0.04 10*3/uL [facility] Basophils/100 WBC (Bld) 0 % 0 - 2 % [facility] Eosinophils (Bld) [#/Vol] 0.35 10*3/uL [facility] Eosinophils/100 WBC (Bld) 3 % 1 - 4 % [facility] Erythrocyte distribution width (RBC) [Ratio] 14.6 % High 11.8 - 14.4 % [facility] Hematocrit (Bld) [Volume fraction] 31.8 % Low 40.7 - 50.3 % [facility] Hemoglobin (Bld) [Mass/Vol] 10.4 g/dL Low 13.0 - 17.0 g/dL [facility] Immature granulocytes (Bld) [#/Vol] 0.13 10*3/uL [facility] Immature granulocytes/100 WBC (Bld) 1 % High 0 [facility] Interpretation and review of laboratory results Abnormal [facility] Lymphocytes/100 WBC (Bld) 13 % Low 24 - 43 % [facility] Lymphocytes/100 WBC (Bld) 1.35 % [facility] MCH (RBC) [Entitic mass] 31.3 pg 25.2 - 33.5 pg [facility] MCHC (RBC) [Mass/Vol] 32.7 g/dL 28.4 - 34.8 g/dL [facility] MCV (RBC) [Entitic vol] 95.8 fL 82.6 - 102.9 fL [facility] Monocytes/100 WBC (Bld) 7 % 3 - 12 % [facility] Monocytes/100 WBC (Bld) 0.76 % [facility] Neutrophils/100 WBC (Bld) 76 % High 36 - 65 % [facility] Nucleated RBC/100 WBC (Bld) [Ratio] 0 % 0.0 per 100 WBC [facility] Platelet mean volume (Bld) [Entitic vol] 10.1 fL 8.1 - 13.5 fL [facility] Platelets (Bld) [#/Vol] 208 10*3/uL [facility] RBC (Bld) [#/Vol] 3.32 10*6/uL Low 4.21 - 5.7 7 m/uL [facility] Segmented neutrophils/100 WBC (Bld) 7.75 % [facility] WBC other (Bld) [#/Vol] 10.4 [facility] CBC with Diffon 02-02-2025 Abs. Basophil 0.04 k/uL Normal 0.00-0.20 [facility] Comment on above: Performed By: #### C DP, REJEC #### [facility] [address] [place] [address] Cleaning Professional: Meredith Nolen MD Abs.Imm.Granulocyte 0.13 k/uL Normal 0.00-0.30 [facility] Comment on above: Performed By: #### C DP, REJEC #### [address] [place] [address] Cleaning Professional: Meredith Nolen MD Abs.Neutrophil (Seg) 7.75 k/uL Normal 1.50-8.10 [facility] Comment on above: Performed By: #### C DP, REJEC #### [address] [place] [address] Cleaning Professional: Meredith Nolen MD Basophils/100 WBC (Bld) 0 % Normal 0-2 [facility] Comment on above: Performed By: #### C DP, REJEC #### [address] [place] [address] Cleaning Professional: Meredith Nolen MD Eosinophils (Bld) [#/Vol] 0.35 10*3/uL Normal 0.00-0.44 [facility] Comment on above: Performed By: #### C DP, REJEC #### [address] [place], [place] [phone] Cleaning Professional: Meredith Nolen MD Eosinophils/100 WBC (Bld) 3 % Normal 1-4 [facility] Comment on above: Performed By: #### C DP, REJEC #### [address] [place], [place] [phone] Cleaning Professional: Meredith Nolen MD Erythrocyte distribution width (RBC) [Ratio] 14.6 % High 11.8-14.4 [facility] Comment on above: Performed By: #### C DP, REJEC #### [address] [place], [facility] Cleaning Professional: Meredith Nolen MD Hematocrit (Bld) [Volume fraction] 31.8 % Low 40.7-50.3 [facility] Comment on above: Performed By: #### C DP, REJEC #### [address] [place], [place] [address] Cleaning Professional: Meredith Nolen MD Hemoglobin (Bld) [Mass/Vol] 10.4 g/dL Low 13.0-17.0 [facility] Comment on above: Performed By: #### C DP, REJEC #### [address] [place], [place] [address] Cleaning Professional: Meredith Nolen MD Immature granulocytes/100 WBC (Bld) 1 % High 0 [facility] Comment on above: Performed By: #### C DP, REJEC #### [address] [place], [facility] Cleaning Professional: Meredith Nolen MD Lymphocytes (Bld) [#/Vol] 1.35 10*3/uL Normal 1.10-3.70 [facility] Comment on above: Performed By: #### C DP, REJEC #### [address] [place], [facility] Cleaning Professional: Meredith Nolen MD Lymphocytes/100 WBC (Bld) 13 % Low 24-43 [facility] Comment on above: Performed By: #### C DP, REJEC #### [address] [place], [facility] Cleaning Professional: Meredith Nolen MD MCH (RBC) [Entitic mass] 31.3 pg Normal 25.2-33.5 [facility] Comment on above: Performed By: #### C DP, REJEC #### [address] [place] [address] Cleaning Professional: Meredith Nolen MD MCHC (RBC) [Mass/Vol] 32.7 g/dL Normal 28.4-34.8 [facility] Comment on above: Performed By: #### C DP, REJEC #### [address] [place] [address] Cleaning Professional: Meredith Nolen MD MCV (RBC) [Entitic vol] 95.8 fL Normal 82.6-102.9 [facility] Comment on above: Performed By: #### C DP, REJEC #### [address] [place], [facility] Cleaning Professional: Meredith Nolen MD Monocytes (Bld) [#/Vol] 0.76 10*3/uL Normal 0.10-1.20 [facility] Comment on above: Performed By: #### C DP, REJEC #### [address] [place] [address] Cleaning Professional: Meredith Nolen MD Monocytes/100 WBC (Bld) 7 % Normal 3-12 [facility] Comment on above: Performed By: #### C DP, REJEC #### [address] [place], [place] [address] Cleaning Professional: Meredith Nolen MD Neutrophil (Seg) 76 % High 36-[address] [facility] Comment on above: Performed By: #### C DP, REJEC #### [facility] [address] [place], [place] [phone] Cleaning Professional: Meredith Nolen MD NRBC Automated 0.0 per 100 WBC Normal 0.0 [facility] Comment on above: Performed By: #### C DP, REJEC #### [facility] [address] [place], [place] [address] Cleaning Professional: Meredith Nolen MD Platelet mean volume (Bld) [Entitic vol] 10.1 fL Normal 8.1-13.5 [facility] Comment on above: Performed By: #### C DP, REJEC #### [address] [place] [address] Cleaning Professional: Meredith Nolen MD Platelets (Bld) [#/Vol] 208 10*3/uL Normal 138-453 [facility] Comment on above: Performed By: #### C DP, REJEC #### [address] [place] [address] Cleaning Professional: Meredith Nolen MD RBC (Bld) [#/Vol] 3.32 10*6/uL Low 4.21-5.77 [facility] Comment on above: Performed By: #### C DP, REJEC #### [address] [place] [address] Cleaning Professional: Meredith Nolen MD WBC (Bld) [#/Vol] 10.4 10*3/uL Normal 3.5-11.3 [facility] Comment on above: Performed By: #### C DP, REJEC #### [address] [place] [address] Cleaning Professional: Meredith Nolen MD ED Clinical Summaryon 2024 ED Clinical Summary ED Clinical Summary [address] [address] ED Clinical Summary Person Information Name: JANN Calhoun [place]ANS [place] Age: 55 Years : 1970 Sex: Male Language: Ghanaian PCP: IDANIA RICKETTS DO Marital Status: Visit [...] 18:32:45 02/02/2025 18:32:45 ADDRESS: [address] [place] [id number] PHYS DOC NOTES: MEDICAL INFORMATION: Prescriptions Given: New Medications [id number], [address], [place] [id number], [phone] acetaminophen-oxycodone (acetaminophen-oxycodon e 325 mg-5 mg Tab) 1 Tablets By Mouth every 6 hours as needed for pain for 3 Days. Refills: 0. PATIENT EDUCATION INFORMATION: Instructions: Peripheral Neuropathy; Acute Pain, Adult; Neuropathic Pain Follow up: With: Address: When: IDANIA RICKETTS [address], [address] [place] [address] Business (1) In 3 days 02/05/2025 Comments: Call Dr for diagnosis based follow up DIAGNOSIS: Neuropathic pain Normal [facility] ED Patient Summaryon 025 ED Patient Summary ED Patient Summary [address] [address] Patient Discharge Instructions Person Information Name: EVANS FORTE Jr Age: 55 Years Arrival Date: 02/02/2025 18:02:34 Discharge Diagnosis: Neuropathic pain Primary Care Physician: IDANIA RICKETTS DO Provider Information Primary Provider: Delano Benavides DO Advanced City Manager:Star Saucedo PA-C The exam and treatment you received in the Emergency Department were for an urgent problem and are not intended as complete care. It is important that you follow up with a doctor, nurse practitioner, or physician???s fleet assistant for ongoing care. If your symptoms [...] RICKETTS [address], [address] [place] [address] Business (1) In 3 days 02/05/2025 Comments: [...] opioids can be used to help relieve [id number] pain and are often prescribed following a [...] and over (more content not included)... Normal [facility] Specimen Rejectionon 025 Reason for rejection Unable to perform testing: Specimen hemolyzed. [facility] Comment on above: Performed By: #### C DP, REJEC #### [facility] [address] [place] [address] Cleaning Professional: Meredith Nolen MD Source of sample .BLOOD [facility] Comment on above: Performed By: #### C DP, REJEC #### [facility] [address] [place] [address] Cleaning Professional: Meredith Nolen MD Test ordered BMP [facility] Comment on above: Performed By: #### C DP, REJEC #### [facility] [address] [place] [address] Cleaning Professional: Meredith Nolen MD XR FOOT RIGHT (MIN [...] Tami Concepcion MD 02/02/25 Final result Normal [facility] XR Foot - right 3 Viewson 1. Soft tissue ulceration along the plantar aspect of the posterior heel. 2. No radiographic evidence of acute osteomyelitis. [facility] RIS CONSOLIDATED EXAMINATION: THREE XRAY VIEWS OF [...] posterior heel. No evidence of osseous erosions. [facility] Tami Concepcion MD - 02/02/2025 EXAMINATION: [...] 2. No radiographic evidence of acute osteomyelitis. [facility] [employer] Radiology Study observation (narrative) [employer] XR Foot - right 3 ViewsOrder ed By: Tami Concepcion on 02-02-2025 [employer] Work Phone: 36on 01-15-2025 36 Contacted patient regarding pysch eval. LVM to contact clinic. [facility] 36on 01-02-2025 36 Please advise on nex t step. Medicare will not cover Nucynta for his diagnosis. [facility] 36 Patient asking if he can get some pain meds ordered since his SCS trial today was canceled due to not being approved. Nucynta was not approved by his insurance. Patient aware we will contact him after hearing back from provider. Thanks [facility] Orders Onlyon 01-02-2025 Orders Only [id number] [place]e 1970 M Date Provider Department Center 01/02/2025 YOLIE MALIK MP PAIN Medical [facility] Family History Problem Relation Age of [...] Sister Maternal Grandmother Daughter Father's Brother Alive [facility] Telephoneon 01-02-2025 Telephone [id number] Evans Forte 1970 M Date Provider Department Center 01/02/2025 [id number] MANNING MP PAIN [facility] Family History Problem Relation Age [...] Maternal Grandmother Daughter Father's Brother Alive Normal [facility] Alanine aminotransferase [En zymatic activity/volume] in Serum or PlasmaOrdered By: Ivana Salcedo on 01-01-2025 ALT [Catalytic activity/Vol] Alanine aminotransferase [Enzymatic activity/volume] in Serum or Plasma [facility] ALT [Catalytic activity/Vol] 28 U/L Normal [facility] Comment on above: Performed By: #### C RP, BMP, CBC, ESR #### [facility] [address] Albumin [Mass/volume] in Ser um or Plasma by Bromocresol green (BCG) dye binding methoOrdered By: Ivana Salcedo on 01-01-2025 Albumin BCG dye [Mass/Vol] Albumin [Mass/volume] in Serum or Plasma by Bromocresol green (BCG) dye binding metho 3.5-5.7 [facility] Albumin BCG dye [Mass/Vol] 4.4 g/dL 3.5-5.7 [facility] Alkaline phosphatase [Enzyma tic activity/volume] in Serum or PlasmaOrdered By: Ivana Salcedo on 01-01-2025 ALP [Catalytic activity/Vol] Alkaline phosphatase [Enzymatic activity/volume] in Serum or Plasma 34-104 [facility] ALP [Catalytic activity/Vol] 88 U/L Normal 34-104 [facility] Comment on above: Performed By: #### C RP, BMP, CBC, ESR #### [facility] [address] Aspartate aminotransferase [ Enzymatic activity/volume] in Serum or PlasmaOrdered By: Ivana Salcedo on 01-01-2025 AST [Catalytic activity/Vol] Aspartate aminotransferase [Enzymatic activity/volume] in Serum or Plasma Low 13-39 [facility] AST [Catalytic activity/Vol] 10 U/L Low 13-39 [facility] Comment on above: Performed By: #### C RP, BMP, CBC, ESR #### [facility] [address] Basophils Auto (Bld) [#/Vol] Ordered By: Ivana Salcedo on 01-01-2025 Basophils (Bld) [#/Vol] Automated basophil count 0.0-0.2 [facility] Basophils [#/volume] in Bloo d by Automated countOrdered By: Ivana Salcedo on 01-01-2025 Basophils (Bld) [#/Vol] 0.1 10*3/uL Normal 0.0-0.2 [facility] Comment on above: Result Comment: PERF ORMED BY: [place] [address] PATHOLOGIST NITRILES LAB TECHNICIAN KIM ELLIOTT M.D. Performed By: #### C RP, BMP, CBC, ESR #### [facility] [address] Basophils/100 WBC Auto (Bld) Ordered By: Ivana Salcedo on 01-01-2025 Basophils/100 WBC (Bld) Automated basophil % . [facility] Basophils/100 leukocytes in Blood by Automated countOrdered By: Ivana Salcedo on 01-01-2025 Basophils/100 WBC (Bld) 0.8 % Normal . [facility] Comment on above: Performed By: #### C RP, BMP, CBC, ESR #### [facility] [address] [place] [address] Bilirubin.total [Mass/volume ] in Serum or PlasmaOrdered By: Ivana Salcedo on 01-01-2025 Bilirubin [Mass/Vol] Bilirubin.total [Mass/volume] in Serum or Plasma 0.3-1.0 [facility] Bilirubin [Mass/Vol] 0.5 mg/dL Normal 0.3-1.0 [facility] Comment on above: Performed By: #### C RP, BMP, CBC, ESR #### [facility] [address] [place] [address] COVID Cepheid NegativeOrdere d By: Ivana Salcedo on 01-01-2025 SARS-CoV-2 (COVID-19) Ab IA Ql COVID Cepheid Negative [facility] Comment on above: This is a duplicate Cepheid Xpert Xpress CoV-2/Flu/RSV Plus RNA by RT-PCR result to be used for statistical tracking purpose only. SARS-CoV-2 (COVID-19) Ab IA Ql Negative Negative [facility] Comment on above: This is a [...] or Cepheid Disclaimer revoked sooner. PERFORMED BY: [place] [address] PATHOLOGIST NITRILES LAB TECHNICIAN IKM ELLIOTT M.D. Normal [facility] Comment on above: Performed By: #### C RP, BMP, CBC, ESR #### [place] [id number] [facility] Calcium [Mass/volume] in Ser um or PlasmaOrdered By: Ivana Salcedo on 01-01-2025 Calcium [Mass/Vol] Calcium [Mass/volume ] in Serum or Plasma 8.6-10.3 [facility] Calcium [Mass/Vol] 9.2 mg/dL Normal 8.6-10.3 [facility] Comment on above: Performed By: #### C RP, BMP, CBC, ESR #### [place] [id number] [facility] [facility] Carbon dioxide, total [Moles /volume] in Serum or PlasmaOrdered By: Ivana Salcedo on 01-01-2025 CO2 [Moles/Vol] Carbon dioxide, tota l [Moles/volume] in Serum or Plasma 21.0-31.0 [facility] CO2 [Moles/Vol] 27.1 mmol/L Normal 21.0-31.0 [facility] Comment on above: Performed By: #### C RP, BMP, CBC, ESR #### [place] [id number] [facility] Cepheid COVID PCR Negativeon 01-01-2025 SARS-CoV-2 (COVID-19) RNA SHAY+probe Ql (Unsp spec) Negative Normal Negative [facility] Comment on above: Result Comment: This is a duplicate Cepheid Xpert Xpress CoV-2/Flu/RSV Plus RNA by RT-PCR result to be used for statistical tracking purpose only. PERFORMED BY: [place] [id number] PATHOLOGIST NITRILES LAB TECHNICIAN KIM ELLIOTT M.D. Performed By: #### C RP, BMP, CBC, ESR #### [address] Chloride [Moles/volume] in S james or PlasmaOrdered By: Ivana Salcedo on 01-01-2025 Chloride [Moles/Vol] Chloride [Moles/vol ume] in Serum or Plasma 98-107 [facility] Chloride [Moles/Vol] 99 mmol/L Normal 98-107 [facility] Comment on above: Performed By: #### C RP, BMP, CBC, ESR #### [address] Complete Blood Count Auto Di ffon 01-01-2025 Mean Corpuscular HGB Conc 34.3 g/dL Normal 32.5-35.6 [facility] Comment on above: Performed By: #### C RP, BMP, CBC, ESR #### [address] Monocytes/100 WBC (Bld) 16.78 % Normal 0.00-20.00 [facility] Comment on above: Performed By: #### C RP, BMP, CBC, ESR #### [address] NRBC% 0.0 /100{WBC} Normal 0-0.5 [facility] Comment on above: Performed By: #### C RP, BMP, CBC, ESR #### [address] Comprehensive Metabolic Pane nick 01-01-2025 Albumin [Mass/Vol] 4.4 g/dL Normal 3.5-5.7 [facility] Comment on above: Performed By: #### C RP, BMP, CBC, ESR #### [address] Creatinine Clr Calc Pharmacy 20.53 Normal [facility] Comment on above: Result Comment: PERF ORMED BY: [place] [address] PATHOLOGIST NITRILES LAB TECHNICIAN KIM ELLIOTT M.D. Performed By: #### C RP, BMP, CBC, ESR #### [address] Estimated GFR 9.886 mL/Min Normal [facility] Comment on above: Performed By: #### C RP, BMP, CBC, ESR #### [address] Creatinine [Mass/volume] in Serum or PlasmaOrdered By: vIana Salcedo on 01-01-2025 Creatinine [Mass/Vol] Creatinine [Mass/volume] in Serum or Plasma High 0.70-1.30 [facility] Creatinine [Mass/Vol] 6.30 mg/dL High 0.70-1.30 [facility] Comment on above: Performed By: #### C RP, BMP, CBC, ESR #### [address] D-Dimer High Sensitivityon 0 01-01-2025 D-Dimer High Sensitivity <200 Normal 0-243 [facility] Comment on above: Result [...] coagulation studies. Please contact the laboratory at [phone] for redraw instructions. PERFORMED BY: [place] [address] PATHOLOGIST NITRILES LAB TECHNICIAN KIM ELLIOTT M.D. Performed By: #### C RP, BMP, CBC, ESR #### [facility] [address] ECG 12 lead ECGon 01-01-2025 ECG 12 lead ECG [facility] [place] [address] [place] [address] Electrocardiograph Report Signed Patient: Evans Forte MR#: [id number] : 1970 Acct:[id number] Age/Sex: 54 / M ADM Date: 01/01/25 Loc: ER Room: Type: [facility] ER Attending Dr: Ordering Provider: Ivana Salcedo [...] inversion avl Confirmed by Jessica Al MD ([id number]) on 01/02/2025 7:26:58 AM Referred By: Electronically Signed By: Jessica Al MD Transcribed By: MUS Signed By Jessica Al MD 12/06 05/31 5511 Normal [facility] Eosinophils Auto (Bld) [#/Vo l]Ordered By: Ivana Salcedo on 01-01-2025 Eosinophils (Bld) [#/Vol] Automated eosinophil count 0.0-0.45 [facility] Eosinophils [#/volume] in Bl ood by Automated countOrdered By: Ivana Salcedo on 01-01-2025 Eosinophils (Bld) [#/Vol] 0.2 10*3/uL Normal 0.0-0.45 [facility] Comment on above: Performed By: #### C RP, BMP, CBC, ESR #### [facility] [address] [place] [address] Eosinophils/100 WBC Auto (Bl d)Ordered By: Ivana Salcedo on 01-01-2025 Eosinophils/100 WBC (Bld) Automated eosinophil % . [facility] Eosinophils/100 leukocytes i n Blood by Automated countOrdered By: Ivana Salcedo on 01-01-2025 Eosinophils/100 WBC (Bld) 2.1 % Normal . [facility] Comment on above: Performed By: #### C RP, BMP, CBC, ESR #### [address] Erythrocyte distribution wid th Auto (RBC) [Ratio]Ordered By: Ivana Matias on 01-01-2025 Erythrocyte distribution width (RBC) [Ratio] Erythrocyte distribution width [Ratio] by Automated count High 12.0-14.8 [facility] Erythrocyte distribution wid th [Ratio] by Automated countOrdered By: Ivana Matias on 01-01-2025 Erythrocyte distribution width (RBC) [Ratio] 15.7 % High 12.0-14.8 [facility] Comment on above: Performed By: #### C RP, BMP, CBC, ESR #### [address] Erythrocytes [#/volume] in B lood by Automated countOrdered By: Ivana Salcedo on 01-01-2025 RBC (Bld) [#/Vol] 3.84 10*6/uL Low 3.90-5.60 [facility] Comment on above: Performed By: #### C RP, BMP, CBC, ESR #### [address] Fibrin D-dimer [Presence] in Platelet poor plasma by Latex agglutinationOrdered By: Ivana Salcedo on 01-01-2025 Fibrin D-dimer LA Ql (PPP) Fibrin D-dimer [Presence] in Platelet poor plasma by Latex agglutination 0-243 [facility] Comment on above: The reference range [...] coagulation studies. Please contact the laboratory at [phone] for redraw instructions. Fibrin D-dimer LA Ql (PPP) < 200 ng/mL 0-243 [facility] Comment on above: The reference range [...] coagulation studies. Please contact the laboratory at [phone] for redraw instructions. Globulin Calc (S) [Mass/Vol] Ordered By: Ivana Salcedo on 01-01-2025 Globulin (S) [Mass/Vol] Serum globulin measurement by calculation (mass/volume) [facility] Glucose [Mass/volume] in Ser um or PlasmaOrdered By: Ivana Salcedo on 01-01-2025 Glucose [Mass/Vol] Glucose [Mass/volume ] in Serum or Plasma [facility] 70-100 [facility] Comment on above: ADA recommended refe rence rangeRandom Glucose Reference Range is dependent on time and content of last meal. Glucose of more than 200 mg/dL in a nonstressed, ambulatory subject supports the diagnosis of Diabetes Mellitus. Glucose [Mass/Vol] 185 mg/dL High 70-100 [facility] Comment on above: ADA recommended refe rence rangeRandom Glucose Reference Range is dependent on time and content of last meal. Glucose of more than 200 mg/dL in a nonstressed, ambulatory subject supports the diagnosis of Diabetes Mellitus. Result Comment: [place] om Glucose Reference Range is dependent on time and content of last meal. Glucose of more than 200 mg/dL in a nonstressed, ambulatory subject supports the diagnosis of Diabetes Mellitus. ADA recommended reference range Performed By: #### C RP, BMP, CBC, ESR #### [address] Hematocrit Auto (Bld) [Volum e fraction]Ordered By: Ivana Salcedo on 01-01-2025 Hematocrit (Bld) [Volume fraction] Hematocrit [Volume Fraction] of Blood by Automated count Low 38.8-50.0 [facility] Hematocrit [Volume Fraction] of Blood by Automated countOrdered By: Ivana Salcedo on 01-01-2025 Hematocrit (Bld) [Volume fraction] 35.0 % Low 38.8-50.0 [facility] Comment on above: Performed By: #### C RP, BMP, CBC, ESR #### [address] Hemoglobin [Mass/volume] in BloodOrdered By: Ivana Salcedo on 01-01-2025 Hemoglobin (Bld) [Mass/Vol] Hemoglobin [Mass/volume] in Blood Low 13.0-17.0 [facility] Hemoglobin (Bld) [Mass/Vol] 12.0 g/dL Low 13.0-17.0 [facility] Comment on above: Performed By: #### C RP, BMP, CBC, ESR #### [address] Leukocytes [#/volume] correc scott for nucleated erythrocytes in Blood by Automated counOrdered By: Ivana Salcedo on 01-01-2025 WBC corrected for nucl RBC Auto (Bld) [#/Vol] Leukocytes [#/volume] corrected for nucleated erythrocytes in Blood by Automated coun 4.1-10.5 [facility] WBC corrected for nucl RBC Auto (Bld) [#/Vol] 9.3 10*3/uL 4.1-10.5 [facility] Leukocytes [#/volume] in Blo od by Automated countOrdered By: Ivana Salcedo on 01-01-2025 WBC (Bld) [#/Vol] 9.3 10*3/uL Normal 4.1-10.5 [facility] Comment on above: Performed By: #### C RP, BMP, CBC, ESR #### [address] Lymphocytes Auto (Bld) [#/Vo l]Ordered By: Ivana Salcedo on 01-01-2025 Lymphocytes (Bld) [#/Vol] Lymphocytes [#/volume] in Blood by Automated count 1.00-4.8 [facility] Lymphocytes [#/volume] in Bl ood by Automated countOrdered By: Ivana Salcedo on 01-01-2025 Lymphocytes (Bld) [#/Vol] 1.4 10*3/uL Normal 1.00-4.8 [facility] Comment on above: Performed By: #### C RP, BMP, CBC, ESR #### [address] Lymphocytes/100 WBC Auto (Bl d)Ordered By: Ivana Salcedo on 01-01-2025 Lymphocytes/100 WBC (Bld) Lymphocytes/100 leukocytes in Blood by Automated count . [facility] Lymphocytes/100 leukocytes i n Blood by Automated countOrdered By: Ivana Salcedo on 01-01-2025 Lymphocytes/100 WBC (Bld) 14.7 % Normal . [facility] Comment on above: Performed By: #### C RP, BMP, CBC, ESR #### [address] MCH Auto (RBC) [Entitic mass ]Ordered By: Ivana Salcedo on 01-01-2025 MCH (RBC) [Entitic mass] MCH [Entitic mass] by Automated count 27.5-35.2 [facility] MCH [Entitic mass] by Automa scott countOrdered By: Ivana Salcedo on 01-01-2025 MCH (RBC) [Entitic mass] 31.3 pg Normal 27.5-35.2 [facility] Comment on above: Performed By: #### C RP, BMP, CBC, ESR #### [address] MCHC Auto (RBC) [Mass/Vol]Or dered By: Ivana Salcedo on 01-01-2025 MCHC (RBC) [Mass/Vol] MCHC [Mass/volume] by Automated count 32.5-35.6 [facility] MCHC (RBC) [Mass/Vol] 34.3 g/dL 32.5-35.6 [facility] MCV Auto (RBC) [Entitic vol] Ordered By: Ivana Salcedo on 01-01-2025 MCV (RBC) [Entitic vol] MCV [Entitic volume] by Automated count 83.5-101 [facility] MCV [Entitic volume] by Auto mated countOrdered By: Ivana Salcedo on 01-01-2025 MCV (RBC) [Entitic vol] 91.2 fL Normal 83.5-101 [facility] Comment on above: Performed By: #### C RP, BMP, CBC, ESR #### [facility] [address] Monocyte distribution width [Entitic volume] in Blood by AutomatedOrdered By: Ivana Salcedo on 01-01-2025 Monocyte distribution width Auto (Bld) [Entitic vol] Monocyte distribution width [Entitic volume] in Blood by Automated 0.00-20.00 [facility] Monocyte distribution width Auto (Bld) [Entitic vol] 16.78 % 0.00-20.00 [facility] Monocytes Auto (Bld) [#/Vol] Ordered By: Ivana Salcedo on 01-01-2025 Monocytes (Bld) [#/Vol] Automated blood monocyte count 0.0-0.8 [facility] Monocytes [#/volume] in Bloo d by Automated countOrdered By: Ivana Salcedo on 01-01-2025 Monocytes (Bld) [#/Vol] 0.8 10*3/uL Normal 0.0-0.8 [facility] Comment on above: Performed By: #### C RP, BMP, CBC, ESR #### [facility] [address] [place] [address] [place] Monocytes/100 WBC Auto (Bld) Ordered By: Ivana Salcedo on 04-28-2025 Monocytes/100 WBC (Bld) Automated monocyte % . [facility] Monocytes/100 leukocytes in Blood by Automated countOrdered By: Ivana Salcedo on 01-01-2025 Monocytes/100 WBC (Bld) 8.8 % Normal . [facility] Comment on above: Performed By: #### C RP, BMP, CBC, ESR #### [facility] [address] Neutrophils Auto (Bld) [#/Vo l]Ordered By: Ivana Salcedo on 01-01-2025 Neutrophils (Bld) [#/Vol] Neutrophils [#/volume] in Blood by Automated count 1.8-7.7 [facility] Neutrophils [#/volume] in Bl ood by Automated countOrdered By: Ivana Salcedo on 01-01-2025 Neutrophils (Bld) [#/Vol] 6.9 10*3/uL Normal 1.8-7.7 [facility] Comment on above: Performed By: #### C RP, BMP, CBC, ESR #### [facility] [address] [place] [address] Neutrophils/100 WBC Auto (Bl d)Ordered By: Ivana Salcedo on 01-01-2025 Neutrophils/100 WBC (Bld) Automated neutrophil % . [facility] Neutrophils/100 leukocytes i n Blood by Automated countOrdered By: Ivana Salcedo on 01-01-2025 Neutrophils/100 WBC (Bld) 73.6 % Normal . [facility] Comment on above: Performed By: #### C RP, BMP, CBC, ESR #### [facility] [address] [place] [address] No Panel InformationOrdered By: Ivana Salcedo on 01-01-2025 Estimated GFR (CKD-EPI) 9.886 mL/Min [facility] Creatinine Clearance (Chem 20.53 [facility] Nucleated erythrocytes [Pres ence] in Blood by Automated countOrdered By: Ivana Salcedo on 01-01-2025 Nucleated RBC Auto Ql (Bld) Nucleated erythrocytes [Presence] in Blood by Automated count 0-0.5 [facility] Nucleated RBC Auto Ql (Bld) 0.0 /100{WBC} 0-0.5 [facility] Platelet mean volume Auto (B ld) [Entitic vol]Ordered By: Ivana Salcedo on 01-01-2025 Platelet mean volume (Bld) [Entitic vol] Platelet mean volume [Entitic volume] in Blood by Automated count 6.6-10.1 [facility] Platelet mean volume [Entiti c volume] in Blood by Automated countOrdered By: Ivana Salcedo on 01-01-2025 Platelet mean volume (Bld) [Entitic vol] 7.4 fL Normal 6.6-10.1 [facility] Comment on above: Performed By: #### C RP, BMP, CBC, ESR #### [facility] [address] Platelets Auto (Bld) [#/Vol] Ordered By: Ivana Salcedo on 01-01-2025 Platelets (Bld) [#/Vol] Platelets [#/volume] in Blood by Automated count 150-450 [facility] Platelets [#/volume] in Bloo d by Automated countOrdered By: Ivana Salcedo on 01-01-2025 Platelets (Bld) [#/Vol] 304 10*3/uL Normal 150-450 [facility] Comment on above: Performed By: #### C RP, BMP, CBC, ESR #### [place] [address] [place] Potassium [Moles/volume] in Serum or PlasmaOrdered By: Ivana Salcedo on 01-01-2025 Potassium [Moles/Vol] Potassium [Moles/volume] in Serum or Plasma 3.5-5.1 [facility] Potassium [Moles/Vol] 4.8 mmol/L Normal 3.5-5.1 [facility] Comment on above: Performed By: #### C RP, BMP, CBC, ESR #### [facility] [address] [place] [address] [place] Protein [Mass/volume] in Ser um or PlasmaOrdered By: Ivana Salcedo on 01-01-2025 Protein [Mass/Vol] Protein [Mass/volume ] in Serum or Plasma 6.4-8.9 [facility] Protein [Mass/Vol] 8.4 g/dL Normal 6.4-8.9 [facility] Comment on above: Performed By: #### C RP, BMP, CBC, ESR #### [facility] [address] RBC Auto (Bld) [#/Vol]Ordere d By: Ivana Salcedo on 01-01-2025 RBC (Bld) [#/Vol] Erythrocytes [#/volu me] in Blood by Automated count Low 3.90-5.60 [facility] Respiratory specimen influen za A virus, influenza B virus, respiratory syncytical virOrdered By: Ivana Salcedo on 01-01-2025 SARS-CoV-2 (COVID-19) RNA SHAY+probe Ql (Unsp spec) Respiratory specimen influenza A virus, influenza B virus, respiratory syncytical vir [facility] SARS-CoV-2 (COVID-19) RNA SHAY+probe Ql (Unsp spec) [facility] Serum globulin measurement b y calculation (mass/volume)Ordered By: Ivana Salcedo on 01-01-2025 Globulin (S) [Mass/Vol] 4.0 g/dL Normal [facility] Comment on above: Performed By: #### C RP, BMP, CBC, ESR #### [address] Serum or plasma albumin/glob ulin mass ratioOrdered By: Ivana Salcedo on 01-01-2025 Albumin/Globulin [Mass ratio] Serum or plasma albumin/globulin mass ratio [facility] Albumin/Globulin [Mass ratio] 1.1 {ratio} Normal [facility] Comment on above: Performed By: #### C RP, BMP, CBC, ESR #### [facility] [address] [place] [address] Serum or plasma anion gap de terminationOrdered By: Ivana Salcedo on 01-01-2025 Anion gap [Moles/Vol] Serum or plasma an ion gap determination High 6.0-15.0 [facility] Anion gap [Moles/Vol] 15.7 mmol/L High 6.0-15.0 [facility] Comment on above: Performed By: #### C RP, BMP, CBC, ESR #### [facility] [address] Sodium [Moles/volume] in Ser um or PlasmaOrdered By: Ivana Salcedo on 01-01-2025 Sodium [Moles/Vol] Sodium [Moles/volume ] in Serum or Plasma 136-145 [facility] Sodium [Moles/Vol] 137 mmol/L Normal 136-145 [facility] Comment on above: Performed By: #### C RP, BMP, CBC, ESR #### [facility] [address] Troponin I High Sensitivityo n 01-01-2025 Troponin I High Sensitivity 12 Normal 0-20 [facility] Comment on above: Result Comment: The Troponin units of report have been changed to meet the Chest Pain Accreditation requirement, element EC5.M1l2. Troponin units are changed from pg/ml to ng/L. Also, the decimal is removed and results are in whole numbers. PERFORMED BY: [place] [address] PATHOLOGIST NITRILES LAB TECHNICIAN KIM ELLIOTT M.D. Performed By: #### C RP, BMP, CBC, ESR #### [facility] [address] Troponin I.cardiac [Mass/vol ume] in Serum or Plasma by Detection limit <= 0.01 ng/Ordered By: Ivana Salcedo on 01-01-2025 Troponin I.cardiac DL <= 0.01 ng/mL [Mass/Vol] Troponin I.cardiac [Mass/volume] in Serum or Plasma by Detection limit <= 0.01 ng/ 0-20 [facility] Comment on above: The Troponin units [...] <= 0.01 ng/mL [Mass/Vol] 12 ng/L 0-20 [facility] Comment on above: The Troponin units o f report have been changed to meet the Chest Pain Accreditation requirement, element EC5.M1l2. Troponin units are changed from pg/ml to ng/L. Also, the decimal is removed and results are in whole numbers. Urea nitrogen [Mass/volume] in Serum or PlasmaOrdered By: Ivana Salcedo on 01-01-2025 Urea nitrogen [Mass/Vol] Urea nitrogen [Mass/volume] in Serum or Plasma [facility] 03-30 [facility] Urea nitrogen [Mass/Vol] 69 mg/dL [facility] 03-30 [facility] Comment on above: Performed By: #### C RP, BMP, CBC, ESR #### [address] WBC Auto (Bld) [#/Vol]Ordere d By: Ivana Salcedo on 01-01-2025 WBC (Bld) [#/Vol] Leukocytes [#/volume ] in Blood by Automated count 4.1-10.5 [facility] BLOOD UREA NITROGENon 2024 Urea nitrogen [Mass/Vol] 58 mg/dL [facility] 01-26 [facility] Comment on above: Performed By: #### 3 094-0 #### [facility] ([id number]) [address] [place] [address] Urea nitrogen [Mass/Vol] 112 mg/dL [facility] 01-26 [facility] Comment on above: Performed By: #### 3 094-0 #### [facility] ([id number]) [address] [place] [address] 36on 12-28-2024 36 Patients Nucynta was denied by Medicare. Patient calling to see what the next step is. 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 No meds taken. C/o 10/10 low back pain sharp. Had mri 2 weeks ago showing pinched nerves. Pleasant/cooperative . Pt with LAVF for HD on wed-wed-wed. Limb alert band placed Normal [facility] EDPROVon 12-27-2024 EDPROV History of Present [...] him. Attestion Tanvir Chakraborty MD 12/27/24 0357 [facility] Telephoneon 12-26-2024 Telephone [id number] [place] 1970 M Date Provider Department Center 12/26/2024 [id number]-TAZDIJULIO AVILEZ PAIN Medical [facility] Family History Problem Relation Age of [...] Sister Maternal Grandmother Daughter Father's Brother Alive [facility] 36on 12-22-2024 36 Contacted pt and lvm for patient. Patient has not had psych eval done yet and is scheduled for SCS trial on 01/02/25. [facility] Follow-Upon 12-21-2024 Follow-Up [id number] Evans Forte 1970 M Date Provider Department Center 12/21/2024 Cristi-CHONG COOLEY [facility] Family History Problem Relation Age of [...] Grandmother Daughter Father's Brother Alive Level of Service:44018 MO OFFICE/OUTPATIENT ESTABLISHED MOD MDM 30 MIN Reason for Visit and Comments: Follow-up [628765] - Neuropathic pain [facility] Office Visiton 12-21-2024 Follow-up visit [id number] Evans Forte 1970 M Date Provider Department Center 12/21/2024 4011-HEAVENLY [facility] ON[facility] Family History Problem Relation [...] Grandmother Daughter Father's Brother Alive Level of Service:93362 MO OFFICE/OUTPATIENT ESTABLISHED MOD MDM 30 MIN Reason for Visit and Comments: Follow-up [028076] - 3 month follow up [facility] Orders Onlyon 12-21-2024 Orders Only [id number] Evans Forte 1970 M Date Provider Department [...] Sister Maternal Grandmother Daughter Father's Brother Alive [facility] 36on 12-15-2024 36 TC contacted patient to follow up on status of work up. Patient states working with podiatry, no wounds at this time. Working with pain management doctor. Still working on dental clearance. Pt states still seeing ID for prior lymph node concerns. Pt has no additional concerns at this time. Melinda Hidalgo, JACOB [facility] 36 Please let patient k now that I ordered valium for him to take prior to his MRI. Thank you [facility] 36 Order for oral Valiu m 10mg x1 to be taken prior to MRI placed today. Patient update. [facility] 36on 12-14-2024 36 LVM to call back to reschedule his NS appt TRS [facility] MR LUMBAR SPINE WO CONTRASTo n [...] which is only partially included in the [id number]. Correlate with physical exam findings. Consider ultrasound for further evaluation. Electronically signed: Tyesha Villanueva MD. Not Vldtd Invalid Interpretation Code [facility] Telephoneon 12-12-2024 Telephone [id number] Evans Forte 1970 M Date Provider Department Center 12/12/2024 KELLY FRANCOIS MP PAIN Medical [facility] Family History Problem [...] Reason for Visit and Comments: MRI [Other] [facility] 36on 12-05-2024 36 Pt contacted clinic to be seen sooner to discuss pain medication. At the moment there is not any sooner appointment. Patient is on the cancellation list and patient also educated to contact clinic as well to ask for cancellations. [facility] 36 Patient contacted clinic back and senior technical writer let patient know of Dr. Cooley's response. Patient states he has increased his dose a long time ago and it is not working. Patient states he will contact his PCP to receive pain medication until he has the procedure. [facility] [address] Cooley regarding athis and he would like patient to increase dose to 20mg nightly like discussed at visit. Health Information Systems Technician called and left message for patient with new dosing instructions. Health Information Systems Technician also stated that medication changes are not done over the phone and any further changes will need to be discussed at an office visit. [facility] 36on 12-04-2024 36 Patient contacted clinic and wanted to let you know that the medication is not working for his pain. Patient states he has been on it for two weeks. [facility] Telephoneon 12-04-2024 Telephone [id number] Evans Forte 1970 [facility] Provider Department [place] 12/04/2024 [id number]-NDPWWJULIO AVILEZ PAIN Medical Pavi Family History Problem [...] Sister Maternal Grandmother Daughter Father's Brother Alive [facility] US venous duplex LE RTon venous duplex LE [facility] [place] [address] Ultrasound Report Signed Patient: Evans Forte MR#: [id number] : 1970 Acct:[id number] Age/Sex: 54 / M ADM Date: 11/27/24 Loc: ER Room: Type: [facility] ER Attending Dr: Ordering Provider: Venkat Burgos [...] Ramirez Jean M.D.11/28/2024 3:29 PM Dictation Location: [place] [address] Tech: Olamide Baezaolvin Transcribed By: CATHLEEN 11/28/24 1529 Dictated By: Ramirez Jean MD 11/28/24 1528 Signed By: 11/28/24 1529 Normal [facility] Basic Metabolic Panelon 11-05 Anion gap [Moles/Vol] 17.2 mmol/L High 6.0-15.0 [facility] Comment on above: Performed By: #### C RP, BMP, CBC, ESR #### [facility] [address] [place] [id number] [place] Calcium [Mass/Vol] 9.1 mg/dL Normal 8.6-10.3 [facility] Comment on above: Performed By: #### C RP, BMP, CBC, ESR #### [facility] [address] [place] [address] [place] Chloride [Moles/Vol] 93 mmol/L Low 98-107 [facility] Comment on above: Performed By: #### C RP, BMP, CBC, ESR #### [facility] [address] CO2 [Moles/Vol] 24.7 mmol/L Normal 21.0-31.0 [facility] Comment on above: Performed By: #### C RP, BMP, CBC, ESR #### [facility] [address] Creatinine [Mass/Vol] 6.56 mg/dL High 0.70-1.30 [facility] Comment on above: Performed By: #### C RP, BMP, CBC, ESR #### [facility] [address] Creatinine Clr Calc Pharmacy 19.67 Normal [facility] Comment on above: Performed By: #### C RP, BMP, CBC, ESR #### [facility] [address] Estimated GFR 9.418 mL/Min Normal [facility] Comment on above: Performed By: #### C RP, BMP, CBC, ESR #### [facility] [address] Glucose [Mass/Vol] 199 mg/dL High 70-100 [facility] Comment on above: Result Comment: [place] Glucose Reference Range is dependent on time and content of last meal. Glucose of more than 200 mg/dL in a nonstressed, ambulatory subject supports the diagnosis of Diabetes Mellitus. ADA recommended reference range Performed By: #### C RP, BMP, CBC, ESR #### [facility] [address] Potassium [Moles/Vol] 3.9 mmol/L Normal 3.5-5.1 [facility] Comment on above: Performed By: #### C RP, BMP, CBC, ESR #### [facility] [address] Sodium [Moles/Vol] 131 mmol/L Low 136-145 [facility] Comment on above: Performed By: #### C RP, BMP, CBC, ESR #### [facility] [address] Urea nitrogen [Mass/Vol] 47 mg/dL High 7-25 [facility] Comment on above: Performed By: #### C RP, BMP, CBC, ESR #### [facility] [address] Basophils Auto (Bld) [#/Vol] Ordered By: Venkat Burgos on 11-27-2024 Basophils (Bld) [#/Vol] Automated basophil count 0.0-0.2 [facility] Basophils/100 WBC Auto (Bld) Ordered By: Venkat Burgos on 11-27-2024 Basophils/100 WBC (Bld) Automated basophil % . [facility] C reactive protein [Mass/vol ume] in Serum or PlasmaOrdered By: Venkat Burgos on 11-27-2024 CRP [Mass/Vol] C reactive protein [Mass/volume] in Serum or Plasma High 0.0-0.5 [facility] C-Reactive Proteinon 025 C-Reactive Protein 2.8 mg/dL High 0.0-0.5 [facility] Comment on above: Result Comment: PERF ORMED BY: [place] [address] PATHOLOGIST [employer]IL[employer] LAB TECHNICIAN KIM ELLIOTT M.D. Performed By: #### C RP, BMP, CBC, ESR #### [address] Calcium [Mass/volume] in Ser um or PlasmaOrdered By: Venkat Burgos on 11-27-2024 Calcium [Mass/Vol] Calcium [Mass/volume ] in Serum or Plasma 8.6-10.3 [facility] Carbon dioxide, total [Moles /volume] in Serum or PlasmaOrdered By: Venkat Burgos on 11-27-2024 CO2 [Moles/Vol] Carbon dioxide, tota l [Moles/volume] in Serum or Plasma 21.0-31.0 [facility] Chloride [Moles/volume] in S james or PlasmaOrdered By: Venkat Burgos on 11-27-2024 Chloride [Moles/Vol] Chloride [Moles/vol ume] in Serum or Plasma Low 98-107 [facility] Complete Blood Count Auto Di ffon 11-27-2024 Basophils (Bld) [#/Vol] 0.1 10*3/uL Normal 0.0-0.2 [facility] Comment on above: Performed By: #### C RP, BMP, CBC, ESR #### [address] Basophils/100 WBC (Bld) 1.0 % Normal . [facility] Comment on above: Performed By: #### C RP, BMP, CBC, ESR #### [address] Eosinophils (Bld) [#/Vol] 0.6 10*3/uL High 0.0-0.45 [facility] Comment on above: Performed By: #### C RP, BMP, CBC, ESR #### [address] Eosinophils/100 WBC (Bld) 6.0 % Normal . [facility] Comment on above: Performed By: #### C RP, BMP, CBC, ESR #### [address] Erythrocyte distribution width (RBC) [Ratio] 15.0 % High 12.0-14.8 [facility] Comment on above: Performed By: #### C RP, BMP, CBC, ESR #### [address] Hematocrit (Bld) [Volume fraction] 35.6 % Low 38.8-50.0 [facility] Comment on above: Performed By: #### C RP, BMP, CBC, ESR #### [address] Hemoglobin (Bld) [Mass/Vol] 12.1 g/dL Low 13.0-17.0 [facility] Comment on above: Performed By: #### C RP, BMP, CBC, ESR #### [address] Lymphocytes (Bld) [#/Vol] 1.5 10*3/uL Normal 1.00-4.8 [facility] Comment on above: Performed By: #### C RP, BMP, CBC, ESR #### [address] Lymphocytes/100 WBC (Bld) 14.1 % Normal . [facility] Comment on above: Performed By: #### C RP, BMP, CBC, ESR #### [address] MCH (RBC) [Entitic mass] 30.6 pg Normal 27.5-35.2 [facility] Comment on above: Performed By: #### C RP, BMP, CBC, ESR #### [address] MCV (RBC) [Entitic vol] 90.1 fL Normal 83.5-101 [facility] Comment on above: Performed By: #### C RP, BMP, CBC, ESR #### [address] Mean Corpuscular HGB Conc 33.9 g/dL Normal 32.5-35.6 [facility] Comment on above: Performed By: #### C RP, BMP, CBC, ESR #### [address] Monocytes (Bld) [#/Vol] 1.0 10*3/uL High 0.0-0.8 [facility] Comment on above: Performed By: #### C RP, BMP, CBC, ESR #### [place] [address] [place] Monocytes/100 WBC (Bld) 18.22 % Normal 0.00-20.00 [facility] Comment on above: Performed By: #### C RP, BMP, CBC, ESR #### [address] Monocytes/100 WBC (Bld) 9.3 % Normal . [facility] Comment on above: Performed By: #### C RP, BMP, CBC, ESR #### [address] Neutrophils (Bld) [#/Vol] 7.4 10*3/uL Normal 1.8-7.7 [facility] Comment on above: Performed By: #### C RP, BMP, CBC, ESR #### [address] Neutrophils/100 WBC (Bld) 69.6 % Normal . [facility] Comment on above: Performed By: #### C RP, BMP, CBC, ESR #### [address] NRBC% 0.0 /100{WBC} Normal 0-0.5 [facility] Comment on above: Performed By: #### C RP, BMP, CBC, ESR #### [address] Platelet mean volume (Bld) [Entitic vol] 7.0 fL Normal 6.6-10.[address] [facility] Comment on above: Performed By: #### C RP, BMP, CBC, ESR #### [place] [address] [place] Platelets (Bld) [#/Vol] 400 10*3/uL Normal 150-450 [facility] Comment on above: Performed By: #### C RP, BMP, CBC, ESR #### [address] RBC (Bld) [#/Vol] 3.95 10*6/uL Normal 3.90-5.60 [facility] Comment on above: Performed By: #### C RP, BMP, CBC, ESR #### [address] WBC (Bld) [#/Vol] 10.6 10*3/uL High 4.1-10.5 [facility] Comment on above: Performed By: #### C RP, BMP, CBC, ESR #### [address] [place] [address] [facility] Creatinine [Mass/volume] in Serum or PlasmaOrdered By: Venkat Burgos on 11-27-2024 Creatinine [Mass/Vol] Creatinine [Mass/volume] in Serum or Plasma High 0.70-1.30 [facility] Eosinophils Auto (Bld) [#/Vo l]Ordered By: Venkat Burgos on 11-27-2024 Eosinophils (Bld) [#/Vol] Automated eosinophil count High 0.0-0.45 [facility] Eosinophils/100 WBC Auto (Bl d)Ordered By: Venkat Burgos on 11-27-2024 Eosinophils/100 WBC (Bld) Automated eosinophil % . [facility] Erythrocyte Sedimentation Ra darrel 11-27-2024 ESR (Bld) [Velocity] 122 mm/h High 0-19 [facility] Comment on above: Result Comment: PERF ORMED BY: [address] [place] [address] PATHOLOGIST [employer]RILES LAB TECHNICIAN KIM ELLIOTT M.D. Performed By: #### C RP, BMP, CBC, ESR #### [address] Erythrocyte distribution wid th Auto (RBC) [Ratio]Ordered By: Venkat Burgos on 11-27-2024 Erythrocyte distribution width (RBC) [Ratio] Erythrocyte distribution width [Ratio] by Automated count High 12.0-14.8 [facility] Erythrocyte sedimentation ra te by Photometric methodOrdered By: Venkat Burgos on 11-27-2024 ESR Photometric method (Bld) [Velocity] Erythrocyte sedimentation rate by Photometric method High 0-19 [facility] Glucose [Mass/volume] in Ser um or PlasmaOrdered By: Venkat Burgos on 11-27-2024 Glucose [Mass/Vol] Glucose [Mass/volume ] in Serum or Plasma High 70-100 [facility] Comment on above: ADA recommended refe rence rangeRandom Glucose Reference Range is dependent on time and content of last meal. Glucose of more than 200 mg/dL in a nonstressed, ambulatory subject supports the diagnosis of Diabetes Mellitus. Hematocrit Auto (Bld) [Volum e fraction]Ordered By: Venkat Burgos on 11-27-2024 Hematocrit (Bld) [Volume fraction] Hematocrit [Volume Fraction] of Blood by Automated count Low 38.8-50.0 [facility] Hemoglobin [Mass/volume] in BloodOrdered By: Venkat Burgos on 11-27-2024 Hemoglobin (Bld) [Mass/Vol] Hemoglobin [Mass/volume] in Blood Low 13.0-17.0 [facility] Leukocytes [#/volume] correc scott for nucleated erythrocytes in Blood by Automated counOrdered By: Venkat Burgos on 11-27-2024 WBC corrected for nucl RBC Auto (Bld) [#/Vol] Leukocytes [#/volume] corrected for nucleated erythrocytes in Blood by Automated coun High 4.1-10.5 [facility] Lymphocytes Auto (Bld) [#/Vo l]Ordered By: Venkat Burgos on 11-27-2024 Lymphocytes (Bld) [#/Vol] Lymphocytes [#/volume] in Blood by Automated count 1.00-4.8 [facility] Lymphocytes/100 WBC Auto (Bl d)Ordered By: Venkat Burgos on 11-27-2024 Lymphocytes/100 WBC (Bld) Lymphocytes/100 leukocytes in Blood by Automated count . [facility] MCH Auto (RBC) [Entitic mass ]Ordered By: Venkat Burgos on 11-27-2024 MCH (RBC) [Entitic mass] MCH [Entitic mass] by Automated count 27.5-35.2 [facility] MCHC Auto (RBC) [Mass/Vol]Or dered By: Venkat Burgos on 11-27-2024 MCHC (RBC) [Mass/Vol] MCHC [Mass/volume] by Automated count 32.5-35.6 [facility] MCV Auto (RBC) [Entitic vol] Ordered By: Venkat Burgos on 11-27-2024 MCV (RBC) [Entitic vol] MCV [Entitic volume] by Automated count 83.5-101 [facility] Monocyte distribution width [Entitic volume] in Blood by AutomatedOrdered By: Venkat Burgos on 11-27-2024 Monocyte distribution width Auto (Bld) [Entitic vol] Monocyte distribution width [Entitic volume] in Blood by Automated 0.00-20.00 [facility] Monocytes Auto (Bld) [#/Vol] Ordered By: Venkat Burgos on 11-27-2024 Monocytes (Bld) [#/Vol] Automated blood monocyte count High 0.0-0.8 [facility] Monocytes/100 WBC Auto (Bld) Ordered By: Venkat Burgos on 11-27-2024 Monocytes/100 WBC (Bld) Automated monocyte % . [facility] Neutrophils Auto (Bld) [#/Vo l]Ordered By: Venkat Burgos on 11-27-2024 Neutrophils (Bld) [#/Vol] Neutrophils [#/volume] in Blood by Automated count 1.8-7.7 [facility] Neutrophils/100 WBC Auto (Bl d)Ordered By: Venkat Burgos on 11-27-2024 Neutrophils/100 WBC (Bld) Automated neutrophil % . [facility] No Panel InformationOrdered By: Venkat Burgos on 11-27-2024 Estimated GFR (CKD-EPI) 9.418 mL/Min [facility] Creatinine Clearance (Chem 19.67 [facility] Nucleated erythrocytes [Pres ence] in Blood by Automated countOrdered By: Venkat Burgos on 11-27-2024 Nucleated RBC Auto Ql (Bld) Nucleated erythrocytes [Presence] in Blood by Automated count 0-0.5 [facility] Platelet mean volume Auto (B ld) [Entitic vol]Ordered By: Venkat Burgos on 11-27-2024 Platelet mean volume (Bld) [Entitic vol] Platelet mean volume [Entitic volume] in Blood by Automated count 6.6-10.1 [facility] Platelets Auto (Bld) [#/Vol] Ordered By: Venkat Burgos on 11-27-2024 Platelets (Bld) [#/Vol] Platelets [#/volume] in Blood by Automated count 150-450 [facility] Potassium [Moles/volume] in Serum or PlasmaOrdered By: Venkat Burgos on 11-27-2024 Potassium [Moles/Vol] Potassium [Moles/volume] in Serum or Plasma 3.5-5.1 [facility] RBC Auto (Bld) [#/Vol]Ordere d By: Venkat Burgos on 11-27-2024 RBC (Bld) [#/Vol] Erythrocytes [#/volu me] in Blood by Automated count 3.90-5.60 [facility] Serum or plasma anion gap de terminationOrdered By: Venkat Burgos on 11-27-2024 Anion gap [Moles/Vol] Serum or plasma an ion gap determination High 6.0-15.0 [facility] Sodium [Moles/volume] in Ser um or PlasmaOrdered By: Venkat Burgos on 11-27-2024 Sodium [Moles/Vol] Sodium [Moles/volume ] in Serum or Plasma Low 136-145 [facility] Urea nitrogen [Mass/volume] in Serum or PlasmaOrdered By: Venkat Burgos on 11-27-2024 Urea nitrogen [Mass/Vol] Urea nitrogen [Mass/volume] in Serum or Plasma High 7-25 [facility] WBC Auto (Bld) [#/Vol]Ordere d By: Venkat Burgos on 11-27-2024 WBC (Bld) [#/Vol] Leukocytes [#/volume ] in Blood by Automated count High 4.1-10.5 [facility] Office Visiton 11-23-2024 Follow-up visit [id number] Evans Forte 1970 M Date Provider Department [...] Grandmother Daughter Father's Brother Alive Level of Service:28169 [place] OFFICE/OUTPATIENT NEW MODERATE MDM 45 MINUTES (GC) Reason for Visit and Comments: New Patient [632] - Neuropathy Normal [facility] Telemedicineon 11-07-2024 Telemedicine [id number] Evans Forte 1970 M Date Provider Department Center 11/07/2024 FAUSTINO GUZMÁN [facility] Family History Problem Relation [...] Grandmother Daughter Father's Brother Alive Level of Service:25184 [place] OFFICE/OUTPATIENT ESTABLISHED SF MDM 10 MIN (95) Normal [facility] Follow-Upon 10-31-2024 Follow-Up [id number] Evans Forte 1970 M Date Provider Department [...] Grandmother Daughter Father's Brother Alive Level of Service:19522 [place] OFFICE/OUTPATIENT ESTABLISHED MOD MDM 30 MIN Normal [facility] Alanine aminotransferase [En zymatic activity/volume] in Serum or PlasmaOrdered By: Will Cerna on 10-29-2024 ALT [Catalytic activity/Vol] Alanine aminotransferase [Enzymatic activity/volume] in Serum or Plasma 7-52 [facility] Albumin [Mass/volume] in Ser um or Plasma by Bromocresol green (BCG) dye binding methoOrdered By: Will Cerna on 10-29-2024 Albumin BCG dye [Mass/Vol] Albumin [Mass/volume] in Serum or Plasma by Bromocresol green (BCG) dye binding metho 3.5-5.7 [facility] Alkaline phosphatase [Enzyma tic activity/volume] in Serum or PlasmaOrdered By: Will Cerna on 10-29-2024 ALP [Catalytic activity/Vol] Alkaline phosphatase [Enzymatic activity/volume] in Serum or Plasma 34-104 [facility] Aspartate aminotransferase [ Enzymatic activity/volume] in Serum or PlasmaOrdered By: Will Cerna on 10-29-2024 AST [Catalytic activity/Vol] Aspartate aminotransferase [Enzymatic activity/volume] in Serum or Plasma Low 13-39 [facility] Basophils Auto (Bld) [#/Vol] Ordered By: Will Cerna on 10-29-2024 Basophils (Bld) [#/Vol] Automated basophil count 0.0-0.2 [facility] Basophils/100 WBC Auto (Bld) Ordered By: Will Cerna on 10-29-2024 Basophils/100 WBC (Bld) Automated basophil % . [facility] Bilirubin.total [Mass/volume ] in Serum or PlasmaOrdered By: Will Cerna on 10-29-2024 Bilirubin [Mass/Vol] Bilirubin.total [Mass/volume] in Serum or Plasma 0.3-1.0 [facility] Blood Cultureon 10-29-2024 Bacteria identified Cx Nom (Bld) NO GROWTH 5 DAYS PERFORMED BY: [place] [address] PATHOLOGIST N[employer]RILES LAB TECHNICIAN KIM ELLIOTT M.D. Normal [facility] Comment on above: Performed By: #### C RP, BMP, CBC, ESR #### [facility] [address] [place] [address] Bacteria identified Cx Nom (Bld) NO GROWTH 5 DAYS PERFORMED BY: [place] [address] PATHOLOGIST NITRILES LAB TECHNICIAN KIM ELLIOTT M.D. Normal [facility] Comment on above: Performed By: #### C RP, BMP, CBC, ESR #### [facility] [address] [place] [address] C reactive protein [Mass/vol ume] in Serum or PlasmaOrdered By: Will Cerna on 10-29-2024 CRP [Mass/Vol] C reactive protein [Mass/volume] in Serum or Plasma High 0.0-0.5 [facility] C-Reactive Proteinon 025 C-Reactive Protein 1.5 mg/dL High 0.0-0.5 [facility] Comment on above: Result Comment: PERF ORMED BY: [place] [address] PATHOLOGIST N[employer]RILES LAB TECHNICIAN KIM ELLIOTT M.D. Performed By: #### C RP, CMP, CBC, ESR, LACTIC #### [facility] [address] Calcium [Mass/volume] in Ser um or PlasmaOrdered By: Will Cerna on 10-29-2024 Calcium [Mass/Vol] Calcium [Mass/volume ] in Serum or Plasma 8.6-10.3 [facility] Carbon dioxide, total [Moles /volume] in Serum or PlasmaOrdered By: Will Cerna on 10-29-2024 CO2 [Moles/Vol] Carbon dioxide, tota l [Moles/volume] in Serum or Plasma 21.0-31.0 [facility] Chloride [Moles/volume] in S james or PlasmaOrdered By: Will Cerna on 10-29-2024 Chloride [Moles/Vol] Chloride [Moles/vol ume] in Serum or Plasma 98-107 [facility] Complete Blood Count Auto Di ffon 10-29-2024 Basophils (Bld) [#/Vol] 0.1 10*3/uL Normal 0.0-0.2 [facility] Comment on above: Performed By: #### C RP, CMP, CBC, ESR, LACTIC #### [address] Basophils/100 WBC (Bld) 1.1 % Normal . [facility] Comment on above: Performed By: #### C RP, CMP, CBC, ESR, LACTIC #### [facility] [address] [place] [address] [place] Eosinophils (Bld) [#/Vol] 0.3 10*3/uL Normal 0.0-0.45 [facility] Comment on above: Performed By: #### C RP, CMP, CBC, ESR, LACTIC #### [place] [address] [place] Eosinophils/100 WBC (Bld) 3.4 % Normal . [facility] Comment on above: Performed By: #### C RP, CMP, CBC, ESR, LACTIC #### [facility] [address] Erythrocyte distribution width (RBC) [Ratio] 14.3 % Normal 12.0-14.8 [facility] Comment on above: Performed By: #### C RP, CMP, CBC, ESR, LACTIC #### [address] Hematocrit (Bld) [Volume fraction] 35.5 % Low 38.8-50.0 [facility] Comment on above: Performed By: #### C RP, CMP, CBC, ESR, LACTIC #### [address] Hemoglobin (Bld) [Mass/Vol] 12.1 g/dL Low 13.0-17.0 [facility] Comment on above: Performed By: #### C RP, CMP, CBC, ESR, LACTIC #### [address] Lymphocytes (Bld) [#/Vol] 1.4 10*3/uL Normal 1.00-4.8 [facility] Comment on above: Performed By: #### C RP, CMP, CBC, ESR, LACTIC #### [address] Lymphocytes/100 WBC (Bld) 14.2 % Normal . [facility] Comment on above: Performed By: #### C RP, CMP, CBC, ESR, LACTIC #### [address] MCH (RBC) [Entitic mass] 31.2 pg Normal 27.5-35.2 [facility] Comment on above: Performed By: #### C RP, CMP, CBC, ESR, LACTIC #### [address] MCV (RBC) [Entitic vol] 91.2 fL Normal 83.5-101 [facility] Comment on above: Performed By: #### C RP, CMP, CBC, ESR, LACTIC #### [address] Mean Corpuscular HGB Conc 34.2 g/dL Normal 32.5-35.6 [facility] Comment on above: Performed By: #### C RP, CMP, CBC, ESR, LACTIC #### [address] Monocytes (Bld) [#/Vol] 0.7 10*3/uL Normal 0.0-0.8 [facility] Comment on above: Performed By: #### C RP, CMP, CBC, ESR, LACTIC #### [address] Monocytes/100 WBC (Bld) 13.40 % Normal 0.00-20.00 [facility] Comment on above: Performed By: #### C RP, CMP, CBC, ESR, LACTIC #### [address] Monocytes/100 WBC (Bld) 6.8 % Normal . [facility] Comment on above: Performed By: #### C RP, CMP, CBC, ESR, LACTIC #### [address] Neutrophils (Bld) [#/Vol] 7.5 10*3/uL Normal 1.8-7.7 [facility] Comment on above: Performed By: #### C RP, CMP, CBC, ESR, LACTIC #### [address] Neutrophils/100 WBC (Bld) 74.5 % Normal . [facility] Comment on above: Performed By: #### C RP, CMP, CBC, ESR, LACTIC #### [address] NRBC% 0.0 /100{WBC} Normal 0-0.5 [facility] Comment on above: Performed By: #### C RP, CMP, CBC, ESR, LACTIC #### [address] Platelet mean volume (Bld) [Entitic vol] 6.7 fL Normal 6.6-10.[address] [facility] Comment on above: Performed By: #### C RP, CMP, CBC, ESR, LACTIC #### [address] Platelets (Bld) [#/Vol] 368 10*3/uL Normal 150-450 [facility] Comment on above: Performed By: #### C RP, CMP, CBC, ESR, LACTIC #### [address] RBC (Bld) [#/Vol] 3.89 10*6/uL Low 3.90-5.60 [facility] Comment on above: Performed By: #### C RP, CMP, CBC, ESR, LACTIC #### [address] WBC (Bld) [#/Vol] 10.1 10*3/uL Normal 4.1-10.5 [facility] Comment on above: Performed By: #### C RP, CMP, CBC, ESR, LACTIC #### [address] Comprehensive Metabolic Pane nick 10-29-2024 Albumin [Mass/Vol] 4.3 g/dL Normal 3.5-5.7 [facility] Comment on above: Performed By: #### C RP, CMP, CBC, ESR, LACTIC #### [address] Albumin/Globulin [Mass ratio] 1.1 {ratio} Normal [facility] Comment on above: Performed By: #### C RP, CMP, CBC, ESR, LACTIC #### [address] ALP [Catalytic activity/Vol] 90 U/L Normal 34-104 [facility] Comment on above: Performed By: #### C RP, CMP, CBC, ESR, LACTIC #### [address] ALT [Catalytic activity/Vol] 11 U/L Normal 7-52 [facility] Comment on above: Performed By: #### C RP, CMP, CBC, ESR, LACTIC #### [address] Anion gap [Moles/Vol] 16.6 mmol/L High 6.0-15.0 [facility] Comment on above: Performed By: #### C RP, CMP, CBC, ESR, LACTIC #### [address] AST [Catalytic activity/Vol] 7 U/L Low 13-39 [facility] [facility] Comment on above: Performed By: #### C RP, CMP, CBC, ESR, LACTIC #### [address] Bilirubin [Mass/Vol] 0.4 mg/dL Normal 0.3-1.0 [facility] Comment on above: Performed By: #### C RP, CMP, CBC, ESR, LACTIC #### [address] Calcium [Mass/Vol] 9.4 mg/dL Normal 8.6-10.3 [facility] Comment on above: Performed By: #### C RP, CMP, CBC, ESR, LACTIC #### [address] Chloride [Moles/Vol] 100 mmol/L Normal 98-107 [facility] Comment on above: Performed By: #### C RP, CMP, CBC, ESR, LACTIC #### [address] CO2 [Moles/Vol] 25.8 mmol/L Normal 21.0-31.0 [facility] Comment on above: Performed By: #### C RP, CMP, CBC, ESR, LACTIC #### [address] Creatinine [Mass/Vol] 9.58 mg/dL High 0.70-1.30 [facility] Comment on above: Performed By: #### C RP, CMP, CBC, ESR, LACTIC #### [address] Creatinine Clr Calc Pharmacy 13.36 Normal [facility] Comment on above: Performed By: #### C RP, CMP, CBC, ESR, LACTIC #### [facility] [address] Estimated GFR 5.978 mL/Min Normal [facility] Comment on above: Performed By: #### C RP, CMP, CBC, ESR, LACTIC #### [facility] [address] Globulin (S) [Mass/Vol] 3.9 g/dL Normal [facility] Comment on above: Performed By: #### C RP, CMP, CBC, ESR, LACTIC #### [facility] [address] Glucose [Mass/Vol] 259 mg/dL High 70-100 [facility] Comment on above: Result Comment: [facility] Glucose Reference Range is dependent on time and content of last meal. Glucose of more than 200 mg/dL in a nonstressed, ambulatory subject supports the diagnosis of Diabetes Mellitus. ADA recommended reference range Performed By: #### C RP, CMP, CBC, ESR, LACTIC #### [facility] [address] Potassium [Moles/Vol] 4.4 mmol/L Normal 3.5-5.1 [facility] Comment on above: Performed By: #### C RP, CMP, CBC, ESR, LACTIC #### [facility] [address] Protein [Mass/Vol] 8.2 g/dL Normal 6.4-8.9 [facility] Comment on above: Performed By: #### C RP, CMP, CBC, ESR, LACTIC #### [facility] [address] Sodium [Moles/Vol] 138 mmol/L Normal 136-145 [facility] Comment on above: Performed By: #### C RP, CMP, CBC, ESR, LACTIC #### [facility] [address] Urea nitrogen [Mass/Vol] 78 mg/dL High 7-25 [facility] Comment on above: Performed By: #### C RP, CMP, CBC, ESR, LACTIC #### [facility] [address] [place] [id number] [place] Creatinine [Mass/volume] in Serum or PlasmaOrdered By: Will Cerna on 10-29-2024 Creatinine [Mass/Vol] Creatinine [Mass/volume] in Serum or Plasma High 0.70-1.30 [facility] ECG 12 lead ECGon 10-29-2024 ECG 12 lead ECG [facility] Main [place] [address] [place] [address] Electrocardiograph Report Signed Patient: Evans Forte MR#: [id number] : 1970 Acct:[id number] Age/Sex: 54 / M ADM Date: 10/29/24 Loc: Room: [address] [place] [address] Type: ADM IN Attending Dr: Maxime Magana [...] was found Confirmed by UDAY SALGADO DO ([id number]) on 10/30/2024 1:34:21 AM Referred By: Electronically Signed By: UDAY SALGADO DO Transcribed By: MUS Signed By Uday Salgado DO 10/30 0134 Normal [facility] Eosinophils Auto (Bld) [#/Vo l]Ordered By: Will Cerna on 10-29-2024 Eosinophils (Bld) [#/Vol] Automated eosinophil count 0.0-0.45 [facility] Eosinophils/100 WBC Auto (Bl d)Ordered By: Will Cerna on 10-29-2024 Eosinophils/100 WBC (Bld) Automated eosinophil % . [facility] Erythrocyte Sedimentation Ra darrel 10-29-2024 ESR (Bld) [Velocity] 74 mm/h High 0-19 [facility] Comment on above: Result Comment: PERF ORMED BY: [place] [address] PATHOLOGIST [employer]RILES LAB TECHNICIAN KIM ELLIOTT M.D. Performed By: #### C RP, CMP, CBC, ESR, LACTIC #### [facility] [address] [place] [id number] [facility] Erythrocyte distribution wid th Auto (RBC) [Ratio]Ordered By: Will Cerna on 10-29-2024 Erythrocyte distribution width (RBC) [Ratio] Erythrocyte distribution width [Ratio] by Automated count 12.0-14.8 [facility] Erythrocyte sedimentation ra te by Photometric methodOrdered By: Will Cerna on 10-29-2024 ESR Photometric method (Bld) [Velocity] Erythrocyte sedimentation rate by Photometric method High 0-19 [facility] Globulin Calc (S) [Mass/Vol] Ordered By: Will Cerna on 10-29-2024 Globulin (S) [Mass/Vol] Serum globulin measurement by calculation (mass/volume) [facility] Glucose Glucometer (BldC) [M ass/Vol]Ordered By: Maxime Magana on 10-29-2024 Glucose [Mass/Vol] Capillary blood gluc ose measurement by glucometer (mass/volume) [facility] Comment on above: Random Glucose Refer ence Range is dependent on time and content of last meal. Glucose of more than 200 mg/dL in a nonstressed, ambulatory subject supports the diagnosis of Diabetes Mellitus. Glucose Poct Glucometerson 0 10-29-2024 Glucose [Mass/Vol] 244 mg/dL Normal [facility] Comment on above: Result Comment: [facility] Glucose Reference Range is dependent on time and content of last meal. Glucose of more than 200 mg/dL in a nonstressed, ambulatory subject supports the diagnosis of Diabetes Mellitus. PERFORMED BY: [place] [address] PATHOLOGIST NITRILES LAB TECHNICIAN KIM ELLIOTT M.D. Performed By: #### C RP, BMP, CBC, ESR #### [facility] [address] [place] [id number] [facility] Glucose [Mass/volume] in Ser um or PlasmaOrdered By: Will Cerna on 10-29-2024 Glucose [Mass/Vol] Glucose [Mass/volume ] in Serum or Plasma High 70-100 [facility] Comment on above: ADA recommended refe rence rangeRandom Glucose Reference Range is dependent on time and content of last meal. Glucose of more than 200 mg/dL in a nonstressed, ambulatory subject supports the diagnosis of Diabetes Mellitus. Hematocrit Auto (Bld) [Volum e fraction]Ordered By: Will Cerna on 10-29-2024 Hematocrit (Bld) [Volume fraction] Hematocrit [Volume Fraction] of Blood by Automated count Low 38.8-50.0 [facility] Hemoglobin [Mass/volume] in BloodOrdered By: Will Cerna on 10-29-2024 Hemoglobin (Bld) [Mass/Vol] Hemoglobin [Mass/volume] in Blood Low 13.0-17.0 [facility] Laboratory - Microbiology an d Antimicrobial susceptibilityOrdered By: Will Cerna on 10-29-2024 Bacteria identified Cx Nom (Bld) NO GROWTH 5 DAYS [facility] Bacteria identified Cx Nom (Bld) NO GROWTH 5 DAYS [facility] Lactate [Moles/volume] in Se rum or PlasmaOrdered By: Will Cerna on 10-29-2024 Lactate [Moles/Vol] Lactate [Moles/volum e] in Serum or Plasma 0.5-1.9 [facility] Comment on above: Lactic Acid referenc e range has been updated to 0.5 1.9 mmol/L and the critical range of 2.0 or greater. Lactic Acidon 10-29-2024 Lactate [Moles/Vol] 1.0 mmol/L Normal 0.5-1.9 [facility] Comment on above: Result Comment: Lact ic Acid reference range has been updated to 0.5 ? 1.9 mmol/L and the critical range of 2.0 or greater. PERFORMED BY: [place] [address] PATHOLOGIST NITRILES LAB TECHNICIAN KIM ELLIOTT M.D. Performed By: #### C RP, CMP, CBC, ESR, LACTIC #### [place] [address] [place] Leukocytes [#/volume] correc scott for nucleated erythrocytes in Blood by Automated counOrdered By: Will Cerna on 10-29-2024 WBC corrected for nucl RBC Auto (Bld) [#/Vol] Leukocytes [#/volume] corrected for nucleated erythrocytes in Blood by Automated coun 4.1-10.5 [facility] Lymphocytes Auto (Bld) [#/Vo l]Ordered By: Will Cerna on 10-29-2024 Lymphocytes (Bld) [#/Vol] Lymphocytes [#/volume] in Blood by Automated count 1.00-4.8 [facility] Lymphocytes/100 WBC Auto (Bl d)Ordered By: Will Cerna on 10-29-2024 Lymphocytes/100 WBC (Bld) Lymphocytes/100 leukocytes in Blood by Automated count . [facility] MCH Auto (RBC) [Entitic mass ]Ordered By: Will Cerna on 10-29-2024 MCH (RBC) [Entitic mass] MCH [Entitic mass] by Automated count 27.5-35.2 [facility] MCHC Auto (RBC) [Mass/Vol]Or dered By: Will Cerna on 10-29-2024 MCHC (RBC) [Mass/Vol] MCHC [Mass/volume] by Automated count 32.5-35.6 [facility] MCV Auto (RBC) [Entitic vol] Ordered By: Will Cerna on 10-29-2024 MCV (RBC) [Entitic vol] MCV [Entitic volume] by Automated count 83.5-101 [facility] Monocyte distribution width [Entitic volume] in Blood by AutomatedOrdered By: Will Cerna on 10-29-2024 Monocyte distribution width Auto (Bld) [Entitic vol] Monocyte distribution width [Entitic volume] in Blood by Automated 0.00-20.00 [facility] Monocytes Auto (Bld) [#/Vol] Ordered By: Will Cerna on 10-29-2024 Monocytes (Bld) [#/Vol] Automated blood monocyte count 0.0-0.8 [facility] Monocytes/100 WBC Auto (Bld) Ordered By: Will Cerna on 10-29-2024 Monocytes/100 WBC (Bld) Automated monocyte % . [facility] Neutrophils Auto (Bld) [#/Vo l]Ordered By: Will Cerna on 10-29-2024 Neutrophils (Bld) [#/Vol] Neutrophils [#/volume] in Blood by Automated count 1.8-7.7 [facility] Neutrophils/100 WBC Auto (Bl d)Ordered By: Will Cerna on 10-29-2024 Neutrophils/100 WBC (Bld) Automated neutrophil % . [facility] No Panel InformationOrdered By: Will Cerna on 10-29-2024 Estimated GFR (CKD-EPI) 5.978 mL/Min [facility]acy Creatinine Clearance (Chem 13.36 [facility] Nucleated erythrocytes [Pres ence] in Blood by Automated countOrdered By: Will Cerna on 10-29-2024 Nucleated RBC Auto Ql (Bld) Nucleated erythrocytes [Presence] in Blood by Automated count 0-0.5 [facility] Platelet mean volume Auto (B ld) [Entitic vol]Ordered By: Will Cerna on 10-29-2024 Platelet mean volume (Bld) [Entitic vol] Platelet mean volume [Entitic volume] in Blood by Automated count 6.6-10.1 [facility] Platelets Auto (Bld) [#/Vol] Ordered By: Will Cerna on 10-29-2024 Platelets (Bld) [#/Vol] Platelets [#/volume] in Blood by Automated count 150-450 [facility] Potassium [Moles/volume] in Serum or PlasmaOrdered By: Will Cerna on 10-29-2024 Potassium [Moles/Vol] Potassium [Moles/volume] in Serum or Plasma 3.5-5.1 [facility] Protein [Mass/volume] in Ser um or PlasmaOrdered By: Will Cerna on 10-29-2024 Protein [Mass/Vol] Protein [Mass/volume ] in Serum or Plasma 6.4-8.9 [facility] RBC Auto (Bld) [#/Vol]Ordere d By: Will Cerna on 10-29-2024 RBC (Bld) [#/Vol] Erythrocytes [#/volu me] in Blood by Automated count Low 3.90-5.60 [facility] Serum or plasma albumin/glob ulin mass ratioOrdered By: Will Cerna on 10-29-2024 Albumin/Globulin [Mass ratio] Serum or plasma albumin/globulin mass ratio [facility] Serum or plasma anion gap de terminationOrdered By: Will Cerna on 10-29-2024 Anion gap [Moles/Vol] Serum or plasma an ion gap determination High 6.0-15.0 [facility] Sodium [Moles/volume] in Ser um or PlasmaOrdered By: Will Cerna on 10-29-2024 Sodium [Moles/Vol] Sodium [Moles/volume ] in Serum or Plasma 136-145 [facility] Urea nitrogen [Mass/volume] in Serum or PlasmaOrdered By: Will Cerna on 10-29-2024 Urea nitrogen [Mass/Vol] Urea nitrogen [Mass/volume] in Serum or Plasma High 7-25 [facility] WBC Auto (Bld) [#/Vol]Ordere d By: Will Cerna on 10-29-2024 WBC (Bld) [#/Vol] Leukocytes [#/volume ] in Blood by Automated count 4.1-10.5 [facility] X-ray reportOrdered By: Rony Saeed on 10-29-2024 Study report [place] [address] XRay Report Signed Patient: Evans Forte MR#: [id number] : 1970 Acct:[id number] Age/Sex: 54 / M ADM Date: 5 Loc: ER Room: Type: [facility] ER Attending Dr: Copies to: Will [...] Derrick Saeed M.D.10/29/2024 6:14 PM Dictation Location: RADIO-PC-29 Transcribed By: CATHLEEN 10/29/241813 Dictated By: Derrick Saeed MD 10/29/241810 Signed By: 10/29/241813 [facility] Work Phone: XR foot RT min 3V*on 025 XR foot RT min 3V* [facility] Main [place] [address] [place] [address] XRay Report Signed Patient: Evans Forte MR#: [id number] : 1970 Acct:[id number] Age/Sex: 54 / M ADM Date: 10/29/24 Loc: ER Room: Type: [facility] ER Attending Dr: Copies to: Will [...] Derrick Saeed M.D.10/29/2024 6:14 PM Dictation Location: RADIO-PC-29 Transcribed By: CATHLEEN 10/29/241813 Dictated By: Derrick Saeed MD 10/29/241810 Signed By: 10/29/241813 Normal [facility] 29on 10-17-2024 29 Addended by: MARI HARE on: 10/24/2024 03:37 PM Modules accepted: Orders Normal [facility] BARTONELLA HENSELAE ANTIBODY PANELon 10-17-2024 BARTONELLA HENSELAE IGG <1:64 Normal [facility] Comment on above: Result Comment: INTE [...] developed and its performance characteristics determined by [employer]. It has not been cleared or approved by the [place] Food and Drug Administration. This test was performed in a CLIA certified laboratory and is intended for clinical purposes. Performed By: #### L [id number] ####[facility] [place] [address] BARTONELLA HENSELAE IGM < 1:16 Normal [facility] Comment on above: Result Comment: INTE [...] developed and its performance characteristics determined by [employer]. It has not been cleared or approved by the [place] Food and Drug Administration. This test was performed in a CLIA certified laboratory and is intended for clinical purposes. Performed By: [employer] [address] [place] [address] Naphthalene Operator: Aristeo Salgado MD, PhD CLIA Number: [id number] Performed By: #### L [id number] ####[facility] ([facility])[address] [place] [address] CHLAMYDIA TRACHOMATIS AND NE ISSERIA GONORRHEA, TMAon 10-17-2024 CHLAMYDIA TRACHOMATIS DNA PROBE (PRESENCE) IN UNSP SPEC Negative Normal Negative [facility] Comment on above: Result Comment: No C hlamydia trachomatis rRNA Detected. The Aptima Combo 2 Assay is a FDA approved target amplification nucleic acid probe test that utilizes target capture for the in vitro qualitative detection and differentiation of ribosomal RNA (rRNA) from Chlamydia trachomatis (CT) and/or Neisseria gonorrhoeae (GC) to aid the diagnosis of chlamydial and/or gonococcal urogenital disease using the [employer] System. The Aptima Combo 2 Assay involves target capture, target amplification by [employer]-Mediated Amplification (TMA), and the detection of the amplification products (amplicon) by the Hybridization Protection Assay (HPA). The internal process controls of the [employer]orden System monitor the target capture, amplification, and detection steps of the assay, this is not intended to control for sampling adequacy. Performed By: #### L [id number] ####[facility] ([facility])[address] [place] [address] NEISSERIA GONORRHOEAE DNA PROBE (PRESENCE) IN UNSP SPEC Negative Normal Negative [facility] Comment on above: Result Comment: No N eisseria gonorrhoeae rRNA Detected. The Aptima Combo 2 Assay is a FDA approved target amplification nucleic acid probe test that utilizes target capture for the in vitro qualitative detection and differentiation of ribosomal RNA (rRNA) from Chlamydia trachomatis (CT) and/or Neisseria gonorrhoeae (GC) to aid the diagnosis of chlamydial and/or gonococcal urogenital disease using the Borden System. The Aptima Combo 2 Assay involves target capture, target amplification by [employer]er-Mediated Amplification (TMA), and the detection of the amplification products (amplicon) by the Hybridization Protection Assay (HPA). The internal process controls of the [employer] System monitor the target capture, amplification, and detection steps of the assay, this is not intended to control for sampling adequacy. Performed By: #### L [id number] ####[facility] ([facility])[address] , [place] [address] HISTOPLASMA ANTIGEN, URINEon 10-17-2024 HISTOPLASMA ANTIGEN URINE INTERP Not detected Normal Not Detected [facility] Comment on above: Result Comment: INTE [...] developed and its performance characteristics determined by [employer]. It has not been cleared or approved by the U.S. Food and Drug Administration. This test was performed in a CLIA-certified laboratory and is intended for clinical purposes. Performed By: [employer] [address] [place] [id number] Naphthalene Operator: Aristeo Salgado MD, PhD CLIA Number: [id number] Performed By: #### L [id number] #### [facility] ([facility]) [address] [place] [address] HISTOPLASMA ANTIGEN URINE QUANT Not detected Normal [facility] Comment on above: Performed By: #### L [id number] #### [facility] [address] [place] [address] HIV COMBO 4Gon 10-17-2024 HIV COMBO 4G Negative Normal Negative [facility] Comment on above: Performed By: #### L [id number] #### [facility] ([facility]) [address] [place] [address] Office Visiton 10-17-2024 Follow-up visit [id number] Evans Forte 1970 M Date Provider Department Center 10/17/2024 JOY LYONS [facility] WOUND [place] [facility] Family History Problem Relation Age of [...] Grandmother Daughter Father's Brother Alive Level of Service:72042 MO OFFICE/OUTPATIENT NEW MODERATE MDM 45 MINUTES Normal [facility] Follow-up visit [id number] Evans Forte 1970 M Date Provider Department Center 10/17/2024 FAUSTINO GUZMÁN [facility] INF [facility] Family History Problem Relation [...] Grandmother Daughter Father's Brother Alive Level of Service:02001 MO OFFICE/OUTPATIENT ESTABLISHED LOW MDM 20 MIN Normal [facility] Orders Onlyon 10-17-2024 Orders Only [id number] Evans Forte 1970 M Provider Department Center 10/17/2024 MARIE LOZA [facility] DERM [facility] Family History Problem Relation [...] Maternal Grandmother Daughter Father's Brother Alive Normal [facility] RPRon 10-17-2024 REAGIN AB PRESENCE IN SERUM BY RPR Non-Reactive Normal Nonreactive [facility] Comment on above: Performed By: #### L [id number] ####[facility] ([facility])[address] [place] [address] Provider Orderson 09-25-2024 Provider Orders [id number] OTGTIFF [facility] Orders Onlyon 09-14-2024 Orders Only [id number] Evans Forte 1970 M Date Provider Department Center 09/14/2024 FAUSTINO GUZMÁN [facility] INF [facility] Family History Problem Relation [...] Maternal Grandmother Daughter Father's Brother Alive Normal [facility] Office Visiton 09-05-2024 Follow-up visit [id number] Evans Forte 1970 M Date Provider Department Center 09/05/2024 Kannan-[facility] SURG [place] Family History Problem [...] Grandmother Daughter Father's Brother Alive Level of Service:94562 MO OFFICE/OUTPATIENT ESTABLISHED MDM 10 MIN Reason for Visit and Comments: Post-op [483] - Evans is here today for post op visit: enlarged lymph node, s/p 08/22/24 excisional lymph node biopsy Normal [facility] Basic Metabolic Panelon 12-2 Anion gap [Moles/Vol] 19.7 mmol/L High 6.0-15.0 e [facility] Comment on above: Performed By: #### C RP, BMP, CBC, ESR #### [address] Calcium [Mass/Vol] 9.6 mg/dL Normal 8.6-10.3 [facility] Comment on above: Performed By: #### C RP, BMP, CBC, ESR #### [facility] [address] Chloride [Moles/Vol] 98 mmol/L Normal 98-107 [facility] Comment on above: Performed By: #### C RP, BMP, CBC, ESR #### [facility] [address] CO2 [Moles/Vol] 26.6 mmol/L Normal 21.0-31.0 [facility] Comment on above: Performed By: #### C RP, BMP, CBC, ESR #### [facility] [address] Creatinine [Mass/Vol] 5.94 mg/dL High 0.70-1.30 [facility] Comment on above: Performed By: #### C RP, BMP, CBC, ESR #### [facility] [address] Creatinine Clr Calc Pharmacy 21.80 Normal [facility] Comment on above: Result Comment: PERF ORMED BY: [place] [address] PATHOLOGIST NITRILES LAB TECHNICIAN KIM ELLIOTT M.D. Performed By: #### C RP, BMP, CBC, ESR #### [address] Estimated GFR 10.609 mL/Min Normal [facility] Comment on above: Performed By: #### C RP, BMP, CBC, ESR #### [address] Glucose [Mass/Vol] 135 mg/dL High 70-100 [facility] Comment on above: Result Comment: [facility] Glucose Reference Range is dependent on time and content of last meal. Glucose of more than 200 mg/dL in a nonstressed, ambulatory subject supports the diagnosis of Diabetes Mellitus. ADA recommended reference range Performed By: #### C RP, BMP, CBC, ESR #### [address] Potassium [Moles/Vol] 4.3 mmol/L Normal 3.5-5.1 [facility] Comment on above: Performed By: #### C RP, BMP, CBC, ESR #### [facility] [address] Sodium [Moles/Vol] 140 mmol/L Normal 136-145 [facility] Comment on above: Performed By: #### C RP, BMP, CBC, ESR #### [facility] [address] Urea nitrogen [Mass/Vol] 54 mg/dL High 7-25 [facility] Comment on above: Performed By: #### C RP, BMP, CBC, ESR #### [facility] [address] Basophils Auto (Bld) [#/Vol] Ordered By: Delano Mondragon on 08-29-2024 Basophils (Bld) [#/Vol] Automated basophil count 0.0-0.2 [facility] Basophils/100 WBC Auto (Bld) Ordered By: Delano Mondragon on 08-29-2024 Basophils/100 WBC (Bld) Automated basophil % . [facility] Calcium [Mass/volume] in Ser um or PlasmaOrdered By: Delano Mondragon on 08-29-2024 Calcium [Mass/Vol] Calcium [Mass/volume ] in Serum or Plasma 8.6-10.3 [facility] Carbon dioxide, total [Moles /volume] in Serum or PlasmaOrdered By: Delano Mondragon on 08-29-2024 CO2 [Moles/Vol] Carbon dioxide, tota l [Moles/volume] in Serum or Plasma 21.0-31.0 [facility] Chloride [Moles/volume] in S james or PlasmaOrdered By: Delano Mondragon on 08-29-2024 Chloride [Moles/Vol] Chloride [Moles/vol ume] in Serum or Plasma 98-107 [facility] Complete Blood Count Auto Di ffon 08-29-2024 Basophils (Bld) [#/Vol] 0.0 10*3/uL Normal 0.0-0.2 [facility] Comment on above: Result Comment: PERF ORMED BY: [facility] [address] [facility] [address] PATHOLOGIST NITRILES LAB TECHNICIAN KIM ELLIOTT M.D. Performed By: #### P T, BMP, CBC, PTT #### [address] Basophils/100 WBC (Bld) 0.3 % Normal . [facility] Comment on above: Performed By: #### P T, BMP, CBC, PTT #### [address] Eosinophils (Bld) [#/Vol] 0.5 10*3/uL High 0.0-0.45 [facility] Comment on above: Performed By: #### P T, BMP, CBC, PTT #### [address] Eosinophils/100 WBC (Bld) 5.2 % Normal . [facility] Comment on above: Performed By: #### P T, BMP, CBC, PTT #### [address] Erythrocyte distribution width (RBC) [Ratio] 15.2 % High 12.0-14.8 [facility] Comment on above: Performed By: #### P T, BMP, CBC, PTT #### [address] Hematocrit (Bld) [Volume fraction] 36.0 % Low 38.8-50.0 [facility] Comment on above: Performed By: #### P T, BMP, CBC, PTT #### [address] Hemoglobin (Bld) [Mass/Vol] 12.0 g/dL Low 13.0-17.0 [facility] Comment on above: Performed By: #### P T, BMP, CBC, PTT #### [address] Lymphocytes (Bld) [#/Vol] 2.6 10*3/uL Normal 1.00-4.8 [facility] Comment on above: Performed By: #### P T, BMP, CBC, PTT #### [address] Lymphocytes/100 WBC (Bld) 26.1 % Normal . [facility] Comment on above: Performed By: #### P T, BMP, CBC, PTT #### [address] MCH (RBC) [Entitic mass] 31.3 pg Normal 27.5-35.2 [facility] Comment on above: Performed By: #### P T, BMP, CBC, PTT #### [address] MCV (RBC) [Entitic vol] 93.5 fL Normal 83.5-101 [facility] Comment on above: Performed By: #### P T, BMP, CBC, PTT #### [address] Mean Corpuscular HGB Conc 33.5 g/dL Normal 32.5-35.6 [facility] Comment on above: Performed By: #### P T, BMP, CBC, PTT #### [address] Monocytes (Bld) [#/Vol] 0.8 10*3/uL Normal 0.0-0.8 [facility] Comment on above: Performed By: #### P T, BMP, CBC, PTT #### [place] [address] [place] Monocytes/100 WBC (Bld) 15.54 % Normal 0.00-20.00 [facility] Comment on above: Performed By: #### P T, BMP, CBC, PTT #### [place] [address] [place] Monocytes/100 WBC (Bld) 8.3 % Normal . [facility] Comment on above: Performed By: #### P T, BMP, CBC, PTT #### [address] Neutrophils (Bld) [#/Vol] 5.9 10*3/uL Normal 1.8-7.7 [facility] Comment on above: Performed By: #### P T, BMP, CBC, PTT #### [address] Neutrophils/100 WBC (Bld) 60.1 % Normal . [facility] Comment on above: Performed By: #### P T, BMP, CBC, PTT #### [facility] [address] NRBC% 0.0 /100{WBC} Normal 0-0.5 [facility] Comment on above: Performed By: #### P T, BMP, CBC, PTT #### [address] Platelet mean volume (Bld) [Entitic vol] 7.0 fL Normal 6.6-10.[address] [facility] Comment on above: Performed By: #### P T, BMP, CBC, PTT #### [address] Platelets (Bld) [#/Vol] 289 10*3/uL Normal 150-450 [facility] Comment on above: Performed By: #### P T, BMP, CBC, PTT #### [address] RBC (Bld) [#/Vol] 3.85 10*6/uL Low 3.90-5.60 [facility] Comment on above: Performed By: #### P T, BMP, CBC, PTT #### [address] WBC (Bld) [#/Vol] 9.9 10*3/uL Normal 4.1-10.5 [facility] Comment on above: Performed By: #### P T, BMP, CBC, PTT #### [address] Creatinine [Mass/volume] in Serum or PlasmaOrdered By: Delano Mondragon on 08-29-2024 Creatinine [Mass/Vol] Creatinine [Mass/volume] in Serum or Plasma High 0.70-1.30 [facility] Eosinophils Auto (Bld) [#/Vo l]Ordered By: Delano Mondragon on 08-29-2024 Eosinophils (Bld) [#/Vol] Automated eosinophil count High 0.0-0.45 [facility] Eosinophils/100 WBC Auto (Bl d)Ordered By: Delano Mondragon on 08-29-2024 Eosinophils/100 WBC (Bld) Automated eosinophil % . [facility] Erythrocyte distribution wid th Auto (RBC) [Ratio]Ordered By: Delano Mondragon on 08-29-2024 Erythrocyte distribution width (RBC) [Ratio] Erythrocyte distribution width [Ratio] by Automated count High 12.0-14.8 [facility] Glucose [Mass/volume] in Ser um or PlasmaOrdered By: Delano Mondragon on 08-29-2024 Glucose [Mass/Vol] Glucose [Mass/volume ] in Serum or Plasma High 70-100 [facility] Comment on above: ADA recommended refe rence rangeRandom Glucose Reference Range is dependent on time and content of last meal. Glucose of more than 200 mg/dL in a nonstressed, ambulatory subject supports the diagnosis of Diabetes Mellitus. Hematocrit Auto (Bld) [Volum e fraction]Ordered By: Delano Mondragon on 08-29-2024 Hematocrit (Bld) [Volume fraction] Hematocrit [Volume Fraction] of Blood by Automated count Low 38.8-50.0 [facility] Hemoglobin [Mass/volume] in BloodOrdered By: Delano Mondragon on 08-29-2024 Hemoglobin (Bld) [Mass/Vol] Hemoglobin [Mass/volume] in Blood Low 13.0-17.0 [facility] INR in Platelet poor plasma by Coagulation assayOrdered By: Delano Mondragon on 08-29-2024 INR Coag (PPP) [Relative time] INR in Platelet poor plasma by Coagulation assay [facility] Comment on above: INR Therapeutic Rang [...] erythrocytes in Blood by Automated coun 4.1-10.5 [facility] Lymphocytes Auto (Bld) [#/Vo l]Ordered By: Delano Mondragon on 08-29-2024 Lymphocytes (Bld) [#/Vol] Lymphocytes [#/volume] in Blood by Automated count 1.00-4.8 [facility] Lymphocytes/100 WBC Auto (Bl d)Ordered By: Delano Mondragon on 08-29-2024 Lymphocytes/100 WBC (Bld) Lymphocytes/100 leukocytes in Blood by Automated count . [facility] MCH Auto (RBC) [Entitic mass ]Ordered By: Delano Mondragon on 08-29-2024 MCH (RBC) [Entitic mass] MCH [Entitic mass] by Automated count 27.5-35.2 [facility] MCHC Auto (RBC) [Mass/Vol]Or dered By: Delano Mondragon on 08-29-2024 MCHC (RBC) [Mass/Vol] MCHC [Mass/volume] by Automated count 32.5-35.6 [facility] MCV Auto (RBC) [Entitic vol] Ordered By: Delano Mondragon on 08-29-2024 MCV (RBC) [Entitic vol] MCV [Entitic volume] by Automated count 83.5-101 [facility] Monocyte distribution width [Entitic volume] in Blood by AutomatedOrdered By: Delano Mondragon on 08-29-2024 Monocyte distribution width Auto (Bld) [Entitic vol] Monocyte distribution width [Entitic volume] in Blood by Automated 0.00-20.00 [facility] Monocytes Auto (Bld) [#/Vol] Ordered By: Delano Mondragon on 08-29-2024 Monocytes (Bld) [#/Vol] Automated blood monocyte count 0.0-0.8 [facility] Monocytes/100 WBC Auto (Bld) Ordered By: Delano Mondragon on 08-29-2024 Monocytes/100 WBC (Bld) Automated monocyte % . [facility] Neutrophils Auto (Bld) [#/Vo l]Ordered By: Delano Mondragon on 08-29-2024 Neutrophils (Bld) [#/Vol] Neutrophils [#/volume] in Blood by Automated count 1.8-7.7 [facility] Neutrophils/100 WBC Auto (Bl d)Ordered By: Delano Mondragon on 08-29-2024 Neutrophils/100 WBC (Bld) Automated neutrophil % . [facility] No Panel InformationOrdered By: Delano Mondragon on 08-29-2024 Estimated GFR (CKD-EPI) 10.609 mL/Min [facility] Creatinine Clearance (Chem 21.80 [facility] Nucleated erythrocytes [Pres ence] in Blood by Automated countOrdered By: Delano Mondragon on 08-29-2024 Nucleated RBC Auto Ql (Bld) Nucleated erythrocytes [Presence] in Blood by Automated count 0-0.5 [facility] Partial Thromboplastin Timeo n 08-29-2024 aPTT Coag (Bld) [Time] 36.5 s Normal 25.1-36.5 [facility] Comment on above: Result Comment: A he matocrit value greater than 55% may lead to inaccurate results in coagulation testing. Patients having hematocrit values >55% require a special collection tube for coagulation studies. Please contact the laboratory at [phone] for redraw instructions. PERFORMED BY: [place] [address] PATHOLOGIST [facility] [facility] TECHNICIAN KIM ELLIOTT M.D. Performed By: #### C RP, BMP, CBC, ESR #### [address] Platelet mean volume Auto (B ld) [Entitic vol]Ordered By: Delano Mondragon on 08-29-2024 Platelet mean volume (Bld) [Entitic vol] Platelet mean volume [Entitic volume] in Blood by Automated count 6.6-10.1 [facility] Platelets Auto (Bld) [#/Vol] Ordered By: Delano Mondragon on 08-29-2024 Platelets (Bld) [#/Vol] Platelets [#/volume] in Blood by Automated count 150-450 [facility] Potassium [Moles/volume] in Serum or PlasmaOrdered By: Delano Mondragon on 08-29-2024 Potassium [Moles/Vol] Potassium [Moles/volume] in Serum or Plasma 3.5-5.1 [facility] Prothrombin Time INRon 08-29 INR Coag (PPP) [Relative time] 1.0 {INR} Normal [facility] Comment on above: Result [...] #### C RP, BMP, CBC, ESR #### [facility] [address] [place] [id number] [facility] PT Coag (PPP) [Time] 12.0 s Normal 9.0-12.9 [facility] Comment on above: Result Comment: A he matocrit value greater than 55% may lead to inaccurate results in coagulation testing. Patients having hematocrit values >55% require a special collection tube for coagulation studies. Please contact the laboratory at [phone] for redraw instructions. Performed By: #### C RP, BMP, CBC, ESR #### [facility] [address] [place] [address] [facility] Prothrombin time (PT)Ordered By: Delano Mondragon on 08-29-2024 PT Coag (PPP) [Time] Prothrombin time (PT) 9.0- 12.9 [facility] Comment on above: A hematocrit value g reater than 55% may lead to inaccurate results in coagulation testing. Patients having hematocrit values >55% require a special collection tube for coagulation studies. Please contact the laboratory at [phone] for redraw instructions. RBC Auto (Bld) [#/Vol]Ordere d By: Delano Mondragon on 08-29-2024 RBC (Bld) [#/Vol] Erythrocytes [#/volu me] in Blood by Automated count Low 3.90-5.60 [facility] Serum or plasma anion gap de terminationOrdered By: Delano Mondragon on 08-29-2024 Anion gap [Moles/Vol] Serum or plasma an ion gap determination High 6.0-15.0 [facility] Sodium [Moles/volume] in Ser um or PlasmaOrdered By: Delano Mondragon on 08-29-2024 Sodium [Moles/Vol] Sodium [Moles/volume ] in Serum or Plasma 136-145 [facility] US venous duplex LE RTon US venous duplex LE RT [facility] Main [place] [address] [place] [id number] Ultrasound Report Signed Patient: Evans Forte MR#: [id number] : 1970 Acct:[id number] Age/Sex: 54 / M ADM Date: 08/28/24 Loc: ER Room: Type: [facility] ER Attending Dr: Ordering Provider: Delano Mondrgaon MD Date of Service: 08/28/24 US/US venous [...] Ramirez Jean M.D.08/29/2024 10:46 AM Dictation Location: [facility] Tech: Idania Waite Transcribed By: CATHLEEN 08/29/24 1046 Dictated By: Ramirez Jean MD 08/29/24 1045 Signed By: 08/29/24 1046 Normal [facility] Urea nitrogen [Mass/volume] in Serum or PlasmaOrdered By: Delano Mondragon on 08-29-2024 Urea nitrogen [Mass/Vol] Urea nitrogen [Mass/volume] in Serum or Plasma High 7-25 [facility] WBC Auto (Bld) [#/Vol]Ordere d By: Delano Mondragon on 08-29-2024 WBC (Bld) [#/Vol] Leukocytes [#/volume ] in Blood by Automated count 4.1-10.5 [facility] aPTT in Platelet poor plasma by Coagulation assayOrdered By: Delano Mondragon on 08-29-2024 aPTT Coag (PPP) [Time] Activated partial thromboplastin time (aPTT) in platelet poor plasma by coagulation a 25.1-36.5 [facility] Comment on above: A hematocrit value g reater than 55% may lead to inaccurate results in coagulation testing. Patients having hematocrit values >55% require a special collection tube for coagulation studies. Please contact the laboratory at [phone] for redraw instructions. BONE MARROW CELL DIFFERENTIA Nick 08-22-2024 BM TOTAL CELLS COUNTED Normal [facility] Comment on above: Order Comment: See B one Marrow Exam Report Performed By: #### L [id number] ####[facility] ([facility])[address] [place] [address] BONE MARROW EXAMon LAB AP ANCILLARY RESULTS Normal [facility] Comment on above: Result Comment: Anci llary studies were completed at [facility]: Chromosomes, hematologic, bone marrow: - 46,XY[20]. Corrected result: Previously reported on 09/01/2024 at 1650 EST. Performed By: #### L [id number] ####[facility] ([facility])[address] [place] [address] LAB AP ASPIRATE SMEAR Normal [facility] Comment on above: Result Comment: The aspirate smears are adequately spiculate. The ediwkuh-xh-hcilyxdgo ratio is normal. Cells of the myeloid [...] cells counted). Performed By: #### L [id number] ####[facility] ([facility])[address] , [place] [address] LAB AP ASR DISCLAIMER The interpretation of [...] Clinical Laboratory Improvement Amendments of 1998. Normal [facility] Comment on above: Performed By: #### L [id number] ####[facility] ([facility])[address] , [place] [address] LAB AP CASE REPORT Normal [facility] Comment on above: Result Comment: Bone Marrow Case: [id number] Authorizing Provider: Sivan Keller MD Collected: 08/22/2024 1019 Ordering Location: [facility] CT Imaging Received: 08/22/2024 1214 Pathologist: Jade Esquivel MD Specimens: A) - Bone Marrow Clot B) - Bone Marrow Biopsy C) - Bone Marrow Aspirate Performed By: #### L [id number] ####[facility] ([facility])[address] , [place] [address] LAB AP CBC AND DIFFERENTIAL Normal [facility] Comment on above: Result Comment: Comp [...] Performed By: #### L [id number] ####[facility] ([facility])[address] [place] [address] LAB AP CLINICAL INFORMATION Order Diagnoses Normal [facility] Comment on above: Result Comment: R59. 0 - Localized enlarged lymph nodes [ICD-10-CM] R59.0 - Lymphadenopathy, inguinal [ICD-10-CM] R59.0 - Pelvic lymphadenopathy [ICD-10-CM] R93.89 - Nonspecific abnormal findings on diagnostic imaging [ICD-10-CM] Performed By: #### L [id number] ####[facility] ([facility])[address] [place] [address] LAB AP CLOT SECTION Normal [facility] Comment on above: Result Comment: The aspirate clot section reveals adequate marrow particles. Marrow cellularity and composition are similar to that identified in the core biopsy. There is a single, well-circumscribed lymphoid aggregate identified. Performed By: #### L [id number] ####[facility] ([facility])[address] [place] [address] LAB AP CORE BIOPSY Normal [facility] Comment on above: Result Comment: The fragmented core biopsy reveals 0.8 cm of evaluable marrow with moderate aspiration artifact. Marrow cellularity approximates 80%, hypercellular for age. Maturing trilineage hematopoiesis is well represented. No atypical proliferation is identified. Performed By: #### L [id number] ####[facility] ([facility])[address] [place] [address] LAB AP CORRECTION HISTORY Karyotype analysis completed; no change in diagnosis. Normal [facility] Comment on above: Performed By: #### L [id number] ####[facility] ([facility])[address] [place] [address] LAB AP DIAGNOSIS COMMENT Normal [facility] Comment on above: Result Comment: Cecilia ected result: Previously reported on 09/01/2024 at 1650 EST. Performed By: #### L [id number] ####[facility] ([facility])[address] [place] [address] LAB AP FLOW CYTOMETRY SUMMARY Normal [facility] Comment on above: Result Comment: Flow cytometry studies were completed at [facility]: Bone marrow, flow cytometric immunophenotyping: - Normal immunophenotyping results. No monotypic B-cell population or increase in blasts identified. Performed By: #### L [id number] ####[facility] ([facility])[address] [place] [address] LAB AP GROSS DESCRIPTION Normal [facility] Comment on above: Result Comment: A. [...] Performed By: #### L [id number] ####[facility] ([facility])[address] [place] [address] LAB AP REPORT FINAL DIAGNOSIS NARRATIVE Normal [facility] Comment on above: Result Comment: A-C. Bone [...] Performed By: #### L [id number] ####[facility] ([facility])[address] [place] [address] LAB AP SPECIAL STAINS Normal [facility] Comment on above: Result Comment: Iron stains were completed on the aspirate clot section, core biopsy and aspirate smear. Storage iron is decreased; no ring sideroblasts are identified. Performed By: #### L [id number] ####[facility] [place] [address] CBC WITH AUTO DIFFERENTIALon 08-22-2024 Basophils (Bld) [#/Vol] 0.06 10*3/uL Normal 0.00-0.20 [facility] Comment on above: Performed By: #### L [id number] #### [facility] ([facility]) [address] [place] [address] Basophils/100 WBC (Bld) 0.6 % Normal 0.0-1.0 [facility] Comment on above: Performed By: #### L [id number] #### [facility] ([facility]) [address] [place] [address] Eosinophils (Bld) [#/Vol] 0.53 10*3/uL High 0.00-0.50 [facility] Comment on above: Performed By: #### L [id number] #### [facility] ([facility]) [address] [place] [address] Eosinophils/100 WBC (Bld) 5.5 % Normal 0.0-6.0 [facility] Comment on above: Performed By: #### L [id number] #### [facility] ([facility]) [address] [place] [address] Erythrocyte distribution width (RBC) [Ratio] 14.5 % Normal 11.5-15.0 [facility] Comment on above: Performed By: #### L [id number] #### [facility] ([facility]) [address] [place] [address] ERYTHROCYTE MEAN CORPUSCULAR HEMOGLOBIN CONCENTRATION (G/DL) BY AUTOMATED 32.8 g/dL Normal 32.0-35.0 [facility] Comment on above: Performed By: #### L [id number] #### [facility] [address] [place] [address] Hematocrit (Bld) [Volume fraction] 36.9 % Low 39.0-55.0 [facility] Comment on above: Performed By: #### L [id number] #### [facility] ([facility]) [address] [place] [address] Hemoglobin (Bld) [Mass/Vol] 12.1 g/dL Low 13.0-17.0 [facility] Comment on above: Performed By: #### L [id number] #### [facility] ([facility]) [address] [place] [address] Immature granulocytes (Bld) [#/Vol] 0.05 10*3/uL Normal 0.00-0.20 [facility] Comment on above: Performed By: #### L [id number] #### [facility] ([facility]) [address] [place] [address] Immature granulocytes/100 WBC (Bld) 0.5 % Normal 0.0-1.0 [facility] Comment on above: Performed By: #### L [id number] #### [facility] ([facility]) [address] [place] [address] Lymphocytes (Bld) [#/Vol] 1.77 10*3/uL Normal 1.20-4.00 [facility] Comment on above: Performed By: #### L [id number] #### [facility] [address] [place] [address] Lymphocytes/100 WBC (Bld) 18.3 % Low 20.0-45.0 [facility] Comment on above: Performed By: #### L [id number] #### [facility] [address] [place] [address] MCH (RBC) [Entitic mass] 30.9 pg Normal 27.0-33.0 [facility] Comment on above: Performed By: #### L [id number] #### [facility] ([facility]) [address] [place] [address] MCV (RBC) [Entitic vol] 94.4 fL Normal 82.0-98.0 [facility] Comment on above: Performed By: #### L [id number] #### [facility] ([facility]) [address] [place] [address] Monocytes (Bld) [#/Vol] 0.65 10*3/uL Normal 0.10-1.00 [facility] Comment on above: Performed By: #### L [id number] #### [facility] ([facility]) [address] [place] [address] Monocytes/100 WBC (Bld) 6.7 % Normal 5.0-12.0 [facility] Comment on above: Performed By: #### L [id number] #### [facility] ([facility]) [address] [place] [address] Neutrophils (Bld) [#/Vol] 6.60 10*3/uL Normal 1.60-7.60 [facility] Comment on above: Performed By: #### L [id number] #### [facility] ([facility]) [address] [place] [address] Neutrophils/100 WBC (Bld) 68.4 % Normal 40.0-72.0 [facility] Comment on above: Performed By: #### L [id number] #### [facility] ([facility]) [address] [place] [address] NRBC (PER 100 WBCS) BY AUTOMATED COUNT 0.0 % Normal 0 [facility] Comment on above: Performed By: #### L [id number] #### [facility] ([facility]) [address] [place] [address] PLATELETS (10*3/UL) IN BLOOD AUTOMATED COUNT 227 10*3/uL Normal 150-400 [facility] Comment on above: Performed By: #### L [id number] #### [facility] ([facility]) [address] [place] [address] RBC (Bld) [#/Vol] 3.91 10*6/uL Low 4.20-5.70 [facility] Comment on above: Performed By: #### L [id number] #### [facility] ([facility]) [address] [place] [address] WBC (Bld) [#/Vol] 9.66 10*3/uL Normal 4.00-10.60 [facility] Comment on above: Performed By: #### L [id number] #### [facility] ([facility]) [address] [place] [address] HISTOLOGY - TISSUE EXAMon LAB AP ADDENDUM 1 Normal [facility] Comment on above: Order Comment: Pre-o p diagnosis:Enlarged lymph node [R59.9] Result Comment: Stai n for Treponema pallidum is negative. Addendum electronically signed by Jade Esquivel MD on 09/13/2024 at 10:58 AM Performed By: #### L [id number] ####[facility] ([facility])[address] [place] [address] LAB AP ASR DISCLAIMER The interpretation of [...] Clinical Laboratory Improvement Amendments of 1998. Normal [facility] Comment on above: Order Comment: Pre-o p diagnosis:Enlarged lymph node [R59.9] Performed By: #### L [id number] ####[facility] ([facility])[address] [place] [address] LAB AP CASE REPORT Normal [facility] Comment on above: Order Comment: Pre-o p diagnosis:Enlarged lymph node [R59.9] Result Comment: Surg ical Pathology Case: [id number] Authorizing Provider: Erick Carter MD Collected: 08/22/2024 1656 Ordering Location: [facility] Main Operating Room Received: 08/24/2024 0812 Pathologist: Jade Esquivel MD Specimens: A) - Lymph Node, right groin, frozen section B) - Lymph Node, Right groim, for permanent Performed By: #### L [id number] ####[facility] ([facility])[address] [place] [address] LAB AP CLINICAL INFORMATION Normal [facility] Comment on above: Order Comment: Pre-o p diagnosis:Enlarged lymph node [R59.9] Result Comment: Post -Op Diagnoses R59.9 - Enlarged lymph node [ICD-10-CM] R59.0 - Inguinal lymphadenopathy [ICD-10-CM] Performed By: #### L [id number] ####[facility] ([facility])[address] , [place] [address] LAB AP DIAGNOSIS COMMENT The morphologic features of the lymph node are favored to represent a reactive etiology; there is no evidence of malignancy in the lymph node submitted. A Treponema pallidum stain is pending; results will be reported in an addendum. Normal [facility] Comment on above: Order Comment: Pre-o p diagnosis:Enlarged lymph node [R59.9] Performed By: #### L [id number] ####[facility] ([facility])[address] [place] [address] LAB AP FLOW CYTOMETRY SUMMARY Normal [facility] Comment on above: Order Comment: Pre-o p diagnosis:Enlarged lymph node [R59.9] Result Comment: Flow cytometry studies were completed at [facility] Laboratories: Leukemia/lymphoma phenotyping evaluation by flow cytometry: - No abnormal myeloid, B-cell, T-cell, NK-cell or plasma cell population is identified. Performed By: #### L [id number] ####[facility] ([facility])[address] [place] [address] LAB AP GROSS DESCRIPTION A. Lymph Node. Normal [facility] Comment on above: Order Comment: [...] submitted in 4 cassettes. Lisette North, Pathologists' Learning Developer B. Lymph Node. Received in formalin labeled Evans Shen Jann, Right groin is a burns rubbery lobulated bulky portion of partially shaggy tissue, 2.8 x 2 x 1.7 cm. The specimen is serially sectioned to reveal burns finely granular uniform cut surfaces and is entirely submitted in 6 cassettes. Lisette North, Pathologists' Learning Developer Performed By: #### L [id number] ####[facility] ([facility])[address] , [place] [address] LAB AP MICROSCOPIC DESCRIPTION Microscopic examination performed. [facility] Comment on above: Order Comment: Pre-o p diagnosis:Enlarged lymph node [R59.9] Performed By: #### L [id number] ####[facility] ([facility])[address] , [place] [address] LAB AP REPORT FINAL DIAGNOSIS NARRATIVE [facility] Comment on above: Order Comment: Pre-o p diagnosis:Enlarged lymph node [R59.9] Result Comment: A-B. Lymph node, right groin, excision: - Lymph node with reactive follicular hyperplasia, plasmacytosis and focally thickened capsule. - No evidence of malignancy. - See comment. Performed By: #### L [id number] ####[facility] ([facility])[address] [place] [address] HPon 08-22-2024 HP H&P reviewed. The patient was examined and there are no changes to the H&P. Normal [facility] Labon 08-22-2024 Lab [id number] Evans Forte 1970 M Date Provider Department Center 08/22/2024 2245-[facility] OPD LAB RESOURCE [facility] [place] Medical C Family History Problem Relation Age [...] Maternal Grandmother Daughter Father's Brother Alive Normal [facility] OPNOTEon 08-22-2024 OPNOTE EXCISIONAL RIGHT TYRONE IN LYMPH NODE BIOPSY (R) Operative Note Date: 08/22/2024 Location: [facility] OR Name: Evans Forte, : 1970, [...] FLOW CYTOMETRY Erick Carter MD 08/22/241655 Routine [id number] Description: right groin flow cytometry A Lymph Node Tissue HISTOLOGY - TISSUE EXAM Erick Carter MD 08/22/241655 Routine Description: right groin permanent Staff: Core Drill Operator: Aristeo Lisa RN Scrub Person: Waldemar [...] count and sponge count were correct. Normal [facility] POCT GLUCOSE METER UNSOLICIT ED RESULTSon 08-22-2024 Glucose [Mass/Vol] 97 mg/dL Normal 70-105 [facility] Comment on above: Order Comment: Waive d Testing in the ED is performed under the ED CLIA certificate #[id number]. Result Comment: skir by Performed By: #### L [id number] #### [facility] ([facility]) [address] [place] [address] Glucose [Mass/Vol] 115 mg/dL High 70-105 [facility] Comment on above: Order Comment: Waive d Testing in the ED is performed under the ED CLIA certificate #[id number]. Result Comment: dhol as Performed By: #### L [id number] #### [facility] ([facility]) [address] [place] [address] PROTIME-INRon 08-22-2024 INR IN PPP BY COAGULATION ASSAY 1.01 Normal 0.90-1.10 [facility] Comment on above: Result Comment: ACCC [...] By: #### L [id number] #### [facility] ([facility]) [address] [place] [address] PROTHROMBIN TIME (PT) IN PPP BY COAGULATION ASSAY 13.3 Seconds Normal 12.3-14.8 [facility] Comment on above: Performed By: #### L [id number] #### [facility] ([facility]) [address] [place] [address] Orders Onlyon 08-18-2024 Orders Only [id number] Evans Forte 1970 M Date Provider Department Chunky 08/18/2024 NANCY REYES [facility] [place] Family History Problem Relation Age of Onset [...] Maternal Grandmother Daughter Father's Brother Alive Normal [facility] Consulton 08-08-2024 Consult [id number] Evans Forte 1970 M Date Provider Department Center 08/08/2024 Kannan-ERICK CARTER [facility] SURG Second Fl Family History Problem [...] Grandmother Daughter Father's Brother Alive Level of Service:88681 MO OFFICE/OUTPATIENT NEW LOW MDM 30 MINUTES Reason for Visit and Comments: Consult [484] - Patient is here today for enlarged lymph nodes and is s/p PET scan. Normal [facility] HPon 08-08-2024 HP Subjective Patient ID: [...] skull base to mid thigh FDG Order: [id number] Status: Final result Visible to patient: Yes (seen) Dx: Enlarged lymph nodes; Pre-transplant ... 0 Result Notes Details Reading Physician Reading Date Result Priority Alonso Jaffe MD [phone] 07/31/2024 Routine Narrative & Impression History: Pretransplant [...] CT abdomen pelvis wo renal recipient Order: [id number] Status: Edited Result - FINAL Visible to patient: Yes (seen) Dx: Pre-transplant evaluation for kidney ... 0 Result Notes Details Reading Physician Reading Date Result Priority Alonso Sampson MD [phone] 07/12/2024 Routine Addenda Addendum: Note that there [...] No suspiciou (more content not included)... Normal [facility] 36on 07-31-2024 36 Patient contacted [facility] regarding the results of his PET/CT [...] verbalized understanding. Maria De Jesus Rutledge RN [facility] POCT GLUCOSE METER UNSOLICIT ED RESULTSon 07-28-2024 Glucose [Mass/Vol] 125 mg/dL High 70-105 [facility] Comment on above: Order Comment: Waive d Testing in the ED is performed under the ED CLIA certificate #[id number]. Result Comment: solange [email or web address] Performed By: #### L [id number] ####[facility] ([facility])[address] [place] [address] HPon 07-27-2024 HP History Of Present Illness [...] a past medical history of Adrenal nodule ([facility]), Anemia, Anxiety, Charcot foot due to diabetes mellitus ([facility]), Chronic sinusitis, COVID-19, Diabetic foot ulcers ([facility]), Diabetic polyneuropathy ([facility]), Diabetic retinopathy ([facility]), ED (erectile dysfunction), ESRD (end stage renal disease) ([facility]) (11/23/2022), GERD (gastroesophageal reflux disease), Glaucoma, History of tobacco use, Hyperlipidemia, Hypertension, Hypogonadism in male, Hypothyroidism, Insomnia, Neuropathy, Obesity, Osteomyelitis of ankle or foot, left, acute ([facility]), Pancreatitis, Past history of chewing tobacco use, Peripheral artery disease ([facility]), Proteinuria, Sleep apnea, Type 2 diabetes mellitus ([facility]), and Vitamin D deficiency. Surgical History [...] Adhesive tape-silicones, Latex, Vancomycin, Adhesive, Haloperidol, and Milam oil Medications Medications Prior to Admission Medication [...] Exam Constitutional: Appearan (more content not included)... [facility] NURSNOTEon 07-27-2024 NURSNOTE RN educated pt [...] off of unit with all of belongings. [facility] NURSNOTE .travis [facility] Office Visiton 07-25-2024 Follow-up visit [id number] Evans Forte 1970 M Date Provider Department Center 07/25/2024 FAUSTINO GUZMÁN [facility] INF [facility] Family History Problem Relation Age of Onset Breast cancer Mother Comments: age 53, METS to brain Heart disease Father Heart attack Father Comments: age 26 No Known Problems Sister Comments: half-sister Crohn's disease Daughter Comments: perforated bowel Family Status - Relation Status Age at Mother Father Sister Daughter Level of Service:19488 MO OFFICE/OUTPATIENT NEW LOW MDM 30 MINUTES [facility] Documentationon 07-14-2024 Documentation [id number] Evans Forte 1970 M Date Provider Department Center 07/14/2024 [id number], MELINDA TXP None Family History Problem Relation Age of Onset Breast cancer Mother Comments: age 53, METS to brain Heart disease Father Heart attack Father Comments: age 26 No Known Problems Sister Comments: half-sister Crohn's disease Daughter Comments: perforated bowel Family Status - Relation Status Age at Mother Father Sister Daughter Normal [facility] 36on 07-12-2024 36 TC contacted patient regarding CT results. No answer. Left voicemail. Melinda Hidalgo, RN Normal [facility] B-TYPE NATRIURETIC PEPTIDEon 07-11-2024 Natriuretic peptide B (Bld) [Mass/Vol] 43 pg/mL Normal 0-100 [facility] Comment on above: Performed By: #### L [id number] #### [facility] ([facility]) [address] [place] [address] BILIRUBIN, DIRECTon 07-11-20 24 Magnesium [Mass/Vol] 0.1 mg/dL Normal 0-0.2 [facility] Comment on above: Performed By: #### L [id number] ####[facility] ([facility])[address] [place] [address] CBC WITH AUTO DIFFERENTIALon 07-11-2024 Basophils (Bld) [#/Vol] 0.08 10*3/uL Normal 0.00-0.20 [facility] Comment on above: Performed By: #### L [id number] ####[facility] ([facility])[address] [place] [address] Basophils/100 WBC (Bld) 1.0 % Normal 0.0-1.0 [facility] Comment on above: Performed By: #### L [id number] ####[facility] ([facility])[address] [place] [address] Eosinophils (Bld) [#/Vol] 0.30 10*3/uL Normal 0.00-0.50 [facility] Comment on above: Performed By: #### L [id number] ####[facility] ([facility])[address] [place] [address] Eosinophils/100 WBC (Bld) 3.6 % Normal 0.0-6.0 [facility] Comment on above: Performed By: #### L [id number] ####[facility] ([facility])[address] [place] [address] Erythrocyte distribution width (RBC) [Ratio] 14.6 % Normal 11.5-15.0 [facility] Comment on above: Performed By: #### L [id number] ####[facility] ([facility])[address] [place] [address] ERYTHROCYTE MEAN CORPUSCULAR HEMOGLOBIN CONCENTRATION (G/DL) BY AUTOMATED 32.8 g/dL Normal 32.0-35.0 [facility] Comment on above: Performed By: #### L [id number] ####[facility] ([facility])[address] [place] [address] Hematocrit (Bld) [Volume fraction] 36.3 % Low 39.0-55.0 [facility] Comment on above: Performed By: #### L [id number] ####[facility] ([facility])[address] [place] [address] Hemoglobin (Bld) [Mass/Vol] 11.9 g/dL Low 13.0-17.0 [facility] Comment on above: Performed By: #### L [id number] ####[facility] [place] [address] Immature granulocytes (Bld) [#/Vol] 0.08 10*3/uL Normal 0.00-0.20 [facility] Comment on above: Performed By: #### L [id number] ####[facility] [place] [address] Immature granulocytes/100 WBC (Bld) 1.0 % Normal 0.0-1.0 [facility] Comment on above: Performed By: #### L [id number] ####[facility] ([facility])[address] [place] [address] Lymphocytes (Bld) [#/Vol] 2.21 10*3/uL Normal 1.20-4.00 [facility] Comment on above: Performed By: #### L [id number] ####[facility] ([facility])[address] [place] [address] Lymphocytes/100 WBC (Bld) 26.5 % Normal 20.0-45.0 [facility] Comment on above: Performed By: #### L [id number] ####[facility] ([facility])[address] [place] [address] MCH (RBC) [Entitic mass] 30.1 pg Normal 27.0-33.0 [facility] Comment on above: Performed By: #### L [id number] ####[facility] ([facility])[address] [place] [address] MCV (RBC) [Entitic vol] 91.9 fL Normal 82.0-98.0 [facility] Comment on above: Performed By: #### L [id number] ####[facility] ([facility])[address] [place] [address] Monocytes (Bld) [#/Vol] 0.82 10*3/uL Normal 0.10-1.00 [facility] Comment on above: Performed By: #### L [id number] ####[facility] ([facility])[address] [place] [address] Monocytes/100 WBC (Bld) 9.8 % Normal 5.0-12.0 [facility] Comment on above: Performed By: #### L [id number] ####[facility] ([facility])[address] [place] [address] Neutrophils (Bld) [#/Vol] 4.84 10*3/uL Normal 1.60-7.60 [facility] Comment on above: Performed By: #### L [id number] ####[facility] ([facility])[address] [place] [address] Neutrophils/100 WBC (Bld) 58.1 % Normal 40.0-72.0 [facility] Comment on above: Performed By: #### L [id number] ####[facility] ([facility])[address] [place] [address] NRBC (PER 100 WBCS) BY AUTOMATED COUNT 0.0 % Normal 0 [facility] Comment on above: Performed By: #### L [id number] ####[facility] ([facility])[address] [place] [address] PLATELETS (10*3/UL) IN BLOOD AUTOMATED COUNT 331 10*3/uL Normal 150-400 [facility] Comment on above: Performed By: #### L [id number] ####[facility] ([facility])[address] [place] [address] RBC (Bld) [#/Vol] 3.95 10*6/uL Low 4.20-5.70 [facility] Comment on above: Performed By: #### L [id number] ####[facility] ([facility])[address] [place] [address] WBC (Bld) [#/Vol] 8.33 10*3/uL Normal 4.00-10.60 [facility] Comment on above: Performed By: #### L [id number] ####[facility] ([facility])[address] [place] [address] COMPREHENSIVE METABOLIC PANE Nick 07-11-2024 Albumin [Mass/Vol] 4.2 g/dL Normal 3.5-5.7 [facility] Comment on above: Performed By: #### L [id number] ####[facility] ([facility])[address] [place] [address] ALP [Catalytic activity/Vol] 115 U/L High 34-104 [facility] Comment on above: Performed By: #### L [id number] ####[facility] ([facility])[address] [place] [address] ALT [Catalytic activity/Vol] 12 U/L Normal 7-52 [facility] Comment on above: Performed By: #### L [id number] ####[facility] ([facility])[address] [place] [address] Anion gap [Moles/Vol] 14 mmol/L Normal 7-20 [facility] Comment on above: Performed By: #### L [id number] ####[facility] ([facility])[address] [place] [address] AST [Catalytic activity/Vol] 8 U/L Low 13-39 [facility] Comment on above: Performed By: #### L [id number] ####[facility] ([facility])[address] [place] [address] Bilirubin [Mass/Vol] 0.5 mg/dL Normal 0.3-1.0 [facility] Comment on above: Performed By: #### L [id number] ####[facility] ([facility])[address] [place] [address] Calcium [Mass/Vol] 9.4 mg/dL Normal 8.6-10.3 [facility] Comment on above: Performed By: #### L [id number] ####[facility] ([facility])[address] [place] [address] Chloride [Moles/Vol] 98 mmol/L Normal 98-107 [facility] Comment on above: Performed By: #### L [id number] ####[facility] ([facility])[address] [place] [address] CO2 [Moles/Vol] 31 mmol/L Normal 21-31 [facility] Comment on above: Performed By: #### L [id number] ####[facility] ([facility])[address] [place] [address] Creatinine [Mass/Vol] 7.27 mg/dL High 0.70-1.30 [facility] Comment on above: Performed By: #### L [id number] ####[facility] ([facility])[address] [place] [address] GLOMERULAR FILTRATION RATE ML/MIN/1.73 SQ M.PREDICTED 8.3 mL/min/1.73m*2 Low >60.0 [facility] Comment on above: Result Comment: [facility]???s estimated glomerular filtration rate (eGFR) will [...] Performed By: #### L [id number] ####[facility] ([facility])[address] [place] [address] Glucose [Mass/Vol] 216 mg/dL High 70-100 [facility] Comment on above: Performed By: #### L [id number] ####[facility] ([facility])[address] [place] [address] Potassium [Moles/Vol] 4.1 mmol/L Normal 3.5-5.1 [facility] Comment on above: Performed By: #### L [id number] ####[facility] [place] [address] Protein [Mass/Vol] 7.6 g/dL Normal 6.0-8.3 [facility] Comment on above: Performed By: #### L [id number] ####[facility] [place] [address] Sodium [Moles/Vol] 139 mmol/L Normal 136-145 [facility] Comment on above: Performed By: #### L [id number] ####[facility] ([facility])[address] [place] [address] Urea nitrogen [Mass/Vol] 53 mg/dL High 7-25 [facility] Comment on above: Performed By: #### L [id number] ####[facility] ([facility])[address] [place] [address] UREA NITROGEN/CREATININE (MASS RATIO) IN SER/PLAS 7.3 Normal [facility] Comment on above: Performed By: #### L [id number] ####[facility] ([facility])[address] [place] [address] CT ABDOMEN PELVIS WO RENAL R ECIPIENTon [...] reasonably achievable. Electronically signed: Alonso Sampson. Normal [facility] HEMOGLOBIN A1Con 07-11-2024 Glucose [Mass/Vol] 166 mg/dL Normal [facility] Comment on above: Performed By: #### L [id number] ####[facility] ([facility])[address] [place] [address] HbA1c (Bld) [Mass fraction] 7.4 % High 4.0-6.0 [facility] Comment on above: Performed By: #### L [id number] ####[facility] [place] [address] HEPATITIS A ANTIBODY, IGMon 07-11-2024 HEPATITIS A VIRUS IGM AB PRESENCE IN SER/PLAS Non-Reactive Normal Nonreactive [facility] Comment on above: Performed By: #### L [id number] #### [facility] ([facility]) [address] [place] [address] HEPATITIS B CORE ANTIBODY, I GMon 07-11-2024 HEPATITIS B VIRUS CORE IGM AB PRESENCE IN SER/PLAS BY IMMUNOASSY Negative Normal Negative [facility] Comment on above: Result Comment: INTE RPRETIVE INFORMATION: Hepatitis B Core Ab, IgM This assay should not be used for blood donor screening, associated re-entry protocols, or for screening Human Cells, Tissues and Cellular and Tissue-Based Products (HCT/P). Performed By: [employer] [address] [place] [id number] Naphthalene Operator: Aristeo Salgado MD, PhD CLIA Number: [id number] Performed By: #### L [id number] ####[facility] ([facility])[address] [place] [address] HEPATITIS B CORE ANTIBODY, T OTALon 07-11-2024 HEPATITIS B VIRUS CORE AB (PRESENCE) IN SER/PLAS BY IMM Non-Reactive Normal Nonreactive [facility] Comment on above: Performed By: #### L [id number] ####[facility] ([facility])[address] [place] [address] HEPATITIS B SURFACE ANTIBODY QUANTon 07-11-2024 HEPATITIS B VIRUS SURFACE AB (MIU/ML) IN SERUM 1.48 mIU/mL Normal [facility] Comment on above: Result Comment: INTE RPRETATION: NONREACTIVE <8.00 mIU/mL INDETERMINATE 8.00 - 12.00 mIU/mL REACTIVE >12 mIU/mL Performed By: #### L [id number] #### [facility] ([facility]) [address] [place] [address] HEPATITIS B SURFACE ANTIGENo n 07-11-2024 HEPATITIS B VIRUS SURFACE AG PRESENCE IN SERUM Non-Reactive Normal Nonreactive [facility] Comment on above: Performed By: #### L [id number] ####[facility] ([facility])[address] [place] [address] HEPATITIS C ANTIBODYon 07-11 HEPATITIS C VIRUS AB PRESENCE IN SERUM Non-Reactive Normal Nonreactive [facility] Comment on above: Performed By: #### L [id number] ####[facility] ([facility])[address] [facility] [address] HIV COMBO 4Gon 07-11-2024 HIV COMBO 4G Negative Normal Negative [facility] Comment on above: Performed By: #### L [id number] ####[facility] ([facility])[address] [place] [address] HLA ABC CLASS I TYPINGon A*-1 2 [facility] Comment on above: Performed By: #### L [id number] #### [facility] [address] [place] [address] A*-2 25 [facility] Comment on above: Performed By: #### L [id number] #### [facility] [address] [place] [address] B*-1 44 [facility] Comment on above: Performed By: #### L [id number] #### [facility] [address] [place] [address] B*-2 57 [facility] Comment on above: Performed By: #### L [id number] #### [facility] ([facility]) [address] [place] [address] BW*-1 4 [facility] Comment on above: Performed By: #### L [id number] #### [facility] ([facility]) [address] [place] [address] C*-1 5 [facility] Comment on above: Performed By: #### L [id number] #### [facility] [address] [place] [address] C*-2 6 [facility] Comment on above: Performed By: #### L [id number] #### [facility] ([facility]) [address] [place] [address] HLA ABC CLASS I TYPING TEST METHOD Class I typing by PCR-SSOP Lum[employer] Comment on above: Performed By: #### L [id number] #### [facility] ([facility]) [address] [place] [address] HLA ABC TESTED DATE [id number] [facility] Comment on above: Performed By: #### L [id number] #### [facility] ([facility]) [address] [place] [address] CLASS II TYPINGon DPB1*-1 04:01 [facility] Comment on above: Performed By: #### L [id number] #### [facility] ([facility]) [address] [place] [address] DPB1*-2 04:01 [facility] Comment on above: Performed By: #### L [id number] #### [facility] ([facility]) [address] [place] [address] DQA1*-1 01 [facility] Comment on above: Performed By: #### L [id number] #### [facility] ([facility]) [address] [place] [address] DQA1*-2 02 [facility] Comment on above: Performed By: #### L [id number] #### [facility] ([facility]) [address] [place] [address] DQB1*-1 9 [facility] Comment on above: Performed By: #### L [id number] #### [facility] ([facility]) [address] [address] DQB1*-2 5 [facility] Comment on above: Performed By: #### L [id number] #### [facility] ([facility]) [address] [place] [address] DRB1*-1 1 [facility] Comment on above: Performed By: #### L [id number] #### [facility] ([facility]) [address] [place] [address] DRB1*-2 7 [facility] Comment on above: Performed By: #### L [id number] #### [facility] ([facility]) [address] [place] [address] DRB4*-2 53N [facility] Comment on above: Performed By: #### L [id number] #### [facility] ([facility]) [address] [place] [address] HLA COMMENTS Due to available spa ce, 53N represents the DRB4*01:03:01:02N null allele. [facility] Comment on above: Performed By: #### L [id number] #### [facility] ([facility]) [address] [place] [address] CLASS II TYPING TEST METHOD Class II typing by PCR-SSOP [facility] Comment on above: Performed By: #### L [id number] #### [facility] ([facility]) [address] [place] [address] TESTED DATE Normal Un [facility] Comment on above: Performed By: #### L [id number] #### [facility] ([facility]) [address] [place] [address] LIPID PANELon 07-11-2024 CHOL/HDL 5.5 mg/dL [facility] Comment on above: Performed By: #### L [id number] ####[facility] ([facility])[address] [place] [address] Cholesterol [Mass/Vol] 186 mg/dL Normal 120-200 [facility] Comment on above: Performed By: #### L [id number] ####[facility] ([facility])[address] [place] [address] Magnesium [Mass/Vol] 237 mg/dL High 40-149 [facility] Comment on above: Result Comment: TRIG LYCERIDE REFERENCE RANGE: 20 YEARS AND OLDER CARDIOVASCULAR RISK LESS THAN 150 mg/dL LOW RISK 150 TO 199 mg/dL BORDERLINE RISK 200 mg/dL AND GREATER HIGH RISK Performed By: #### L [id number] ####[facility] ([facility])[address] [place] [address] Magnesium [Mass/Vol] 105 mg/dL Normal 0-160 [facility] Comment on above: Performed By: #### L [id number] ####[facility] ([facility])[address] [place] [address] Magnesium [Mass/Vol] 34 mg/dL Normal 23-92 [facility] Comment on above: Performed By: #### L [id number] ####[facility] ([facility])[address] [place] [address] NON HDL CHOL. (LDL+VLDL) 152 Normal [facility] Comment on above: Performed By: #### L [id number] ####[facility] ([facility])[address] [place] [address] TOTAL VLDL-C 47 mg/dL High 0-40 [facility] Comment on above: Performed By: #### L [id number] ####[facility] ([facility])[address] [place] [address] PANEL REACTIVE ANTIBODYon HOLD SPECIMEN Hold for add-ons. Normal [facility] Comment on above: Result Comment: Auto resulted. Performed By: #### L [id number] ####[facility] TISSUE TYPING (HISTOTRAC)[address] [place] [address] [place] PROTIME-INRon 07-11-2024 INR IN PPP BY COAGULATION ASSAY 1.08 Normal 0.90-1.10 [facility] Comment on above: Result Comment: ACCC [...] RANGE. CHEST 1995;108:231S-246S. Performed By: #### L [id number] #### [facility] [address] [place] [address] PROTHROMBIN TIME (PT) IN PPP BY COAGULATION ASSAY 14.0 Seconds Normal 12.3-14.8 [facility] Comment on above: Performed By: #### L [id number] #### [facility]) [address] [place] [address] PSA, SCREENINGon 07-11-2024 PROSTATE SPECIFIC AG (NG/ML) IN SER/PLAS 1.4 ng/mL Normal 0.4-4 [facility] Comment on above: Performed By: #### L [id number] #### [facility]) [address] [place] [address] SINGLE ANTIGEN CLASS Ion CLASS I LOW RISK AB A:23 29 B:8 Normal [facility] Comment on above: Performed By: #### L [id number] #### [facility] [employer]) [address] [place] [address] CLASS I SPECIFICITY AB A:11 B:76 [facility] Comment on above: Performed By: #### L [id number] #### [facility] ([facility]) [address] [place] [address] CLASS I TESTED DATE Normal U [facility] Comment on above: Performed By: #### L [id number] #### [facility] HOSPITAL LAB (BEAKER) [address] [place] [address] SINGLE ANTIGEN CLASS 1 TEST METHOD Class I Single Antigen Normal [facility] Comment on above: Performed By: #### L [id number] #### [facility] [address] [place] [address] SINGLE ANTIGEN CLASS IIon CLASS II LOW RISK AB DRw:53 [facility] Comment on above: Performed By: #### L [id number] ####[facility] TISSUE TYPING (HISTOTRAC)[address] [place] [address] [place] CLASS II TESTED DATE [facility] Comment on above: Performed By: #### L [id number] ####[facility] TISSUE TYPING (HISTOTRAC)[address] [place] [address] [place] CPRA 12 [facility] Comment on above: Performed By: #### L [id number] ####[facility] TISSUE TYPING (HISTOTRAC)[address] [place] [address] [place] Performed By: #### L [id number] #### [facility] ([facility]) [address] [place] [address] SIGNED BY Signed by Delano betancourt CHT([facility]) MT[facility]), Wireless Operator Transplant Immunology [facility] Comment on above: Performed By: #### L [id number] ####[facility] TISSUE TYPING (HISTOTRAC)[address] [place] [address] [place] Performed By: #### L [id number] #### [facility] HOSPITAL LAB (BEAKER) [address] [place] [address] Result Comment: Clas s I Antigen Microbeads SINGLE ANTIGEN CLASS 2 TEST METHOD Class II Single Antigen [facility] Comment on above: Result Comment: Clas s II Antigen Microbeads Performed By: #### L [id number] ####[facility] TISSUE TYPING (HISTOTRAC)[address] [place] [address] [facility] TESTOSTERONE, FREE AND TOTAL , AND SHBGon 07-11-2024 SEX HORMONE BINDING GLOBULIN (NMOL/L) IN SER/PLAS 14 nmol/L Low 19-76 [facility] Comment on above: Performed By: #### L [id number] ####[facility] [id number] [place] [address] TESTOSTERONE (NG/DL) IN SER/PLAS 408 ng/dL Normal 193-740 [facility] Comment on above: Performed By: #### L [id number] ####[facility] [place] [address] TESTOSTERONE FREE (NG/ML) IN SER/PLAS 122.7 pg/mL Normal 47.0-244.0 [facility] Comment on above: Result Comment: The concentration of free testosterone is derived from a mathematical expression based on the constant for the binding of testosterone to albumin and/or sex hormone binding globulin. Test Performed by [employer] [address] [place] [id number] - Released 07/11/2024 18:27 Performed By: #### L [id number] ####[facility] [place] [address] TYPE AND SCREENon 07-11-2024 AB SCREEN Negative Normal [facility] Comment on above: Performed By: #### L [id number] ####[facility] BLOOD BANK, ABO group Nom (Bld) A Normal [facility] Comment on above: Performed By: #### L [id number] ####[facility] BLOOD [facility], RH TYPE IN BLOOD Positive Normal [facility] Comment on above: Performed By: #### L [id number] ####[facility] BLOOD B[facility], BASIC METABOLIC PANELon 10-1 Anion gap [Moles/Vol] 16 mmol/L Normal 7-20 [facility] Comment on above: Performed By: #### L [id number] ####[facility] ([facility])[address] [place] [address] Calcium [Mass/Vol] 8.7 mg/dL Normal 8.6-10.3 [facility] Comment on above: Performed By: #### L [id number] ####[facility] (BE[facility])[address] [place] [address] Chloride [Moles/Vol] 101 mmol/L Normal 98-107 [facility] Comment on above: Performed By: #### L [id number] ####[facility] ([facility])[address] [place] [address] CO2 [Moles/Vol] 25 mmol/L Normal 21-31 [facility] Comment on above: Performed By: #### L [id number] ####[facility] ([facility])[address] [place] [address] Creatinine [Mass/Vol] 7.29 mg/dL High 0.70-1.30 [facility] Comment on above: Performed By: #### L [id number] ####[facility] ([facility])[address] [place] [address] GLOMERULAR FILTRATION RATE ML/MIN/1.73 SQ M.PREDICTED 8.3 mL/min/1.73m*2 Low >60.0 [facility] Comment on above: Result Comment: [facility]???s estimated glomerular filtration rate (eGFR) will [...] Performed By: #### L [id number] ####[facility] [place] [address] Glucose [Mass/Vol] 126 mg/dL High 70-100 [facility] Comment on above: Performed By: #### L [id number] ####[facility] ([facility])[address] [place] [address] Potassium [Moles/Vol] 4.4 mmol/L Normal 3.5-5.1 [facility] Comment on above: Performed By: #### L [id number] ####[facility] ([facility])[address] [place] [address] Sodium [Moles/Vol] 138 mmol/L Normal 136-145 [facility] Comment on above: Performed By: #### L [id number] ####[facility] ([facility])[address] [place] [address] Urea nitrogen [Mass/Vol] 67 mg/dL High 7-25 [facility] Comment on above: Performed By: #### L [id number] ####[facility] ([facility])[address] [place] [address] UREA NITROGEN/CREATININE (MASS RATIO) IN SER/PLAS 9.2 Normal [facility] Comment on above: Performed By: #### L [id number] ####[facility] ([facility])[address] [place] [address] CBC WITH AUTO DIFFERENTIALon 06-22-2024 Basophils (Bld) [#/Vol] 0.03 10*3/uL Normal 0.00-0.20 [facility] Comment on above: Performed By: #### L [id number] ####[facility] ([facility])[address] [place] [address] Basophils/100 WBC (Bld) 0.3 % Normal 0.0-1.0 [facility] Comment on above: Performed By: #### L [id number] ####[facility] ([facility])[address] [place] [address] Eosinophils (Bld) [#/Vol] 0.24 10*3/uL Normal 0.00-0.50 [facility] Comment on above: Performed By: #### L [id number] ####[facility] (BEAKER)[address] [place] [address] Eosinophils/100 WBC (Bld) 2.1 % Normal 0.0-6.0 [facility] Comment on above: Performed By: #### L [id number] ####[facility] (BE[facility]ER)[address] [place] [address] Erythrocyte distribution width (RBC) [Ratio] 15.2 % High 11.5-15.0 [facility] Comment on above: Performed By: #### L [id number] ####[facility] ([facility])[address] [place] [address] ERYTHROCYTE MEAN CORPUSCULAR HEMOGLOBIN CONCENTRATION (G/DL) BY AUTOMATED 32.7 g/dL Normal 32.0-35.0 [facility] Comment on above: Performed By: #### L [id number] ####[facility] (BEAKER)[address] [place] [address] Hematocrit (Bld) [Volume fraction] 37.0 % Low 39.0-55.0 [facility] Comment on above: Performed By: #### L [id number] ####[facility] (BEAKER)[address] [place] [address] Hemoglobin (Bld) [Mass/Vol] 12.1 g/dL Low 13.0-17.0 [facility] Comment on above: Performed By: #### L [id number] ####[facility] (BE[facility]ER)[address] [place] [address] Immature granulocytes (Bld) [#/Vol] 0.07 10*3/uL Normal 0.00-0.20 [facility] Comment on above: Performed By: #### L [id number] ####[facility] (BE[facility])[address] [place] [address] Immature granulocytes/100 WBC (Bld) 0.6 % Normal 0.0-1.0 [facility] Comment on above: Performed By: #### L [id number] ####[facility] (BE[facility]ER)[address] [place] [address] Lymphocytes (Bld) [#/Vol] 2.10 10*3/uL Normal 1.20-4.00 [facility] Comment on above: Performed By: #### L [id number] ####[facility] HOSPITAL LAB (BEAKER)[address] [place] [address] Lymphocytes/100 WBC (Bld) 18.2 % Low 20.0-45.0 [facility] Comment on above: Performed By: #### L [id number] ####[facility] (BEAKER)[address] [place] [address] MCH (RBC) [Entitic mass] 30.5 pg Normal 27.0-33.0 [facility] Comment on above: Performed By: #### L [id number] ####[facility] (BEAKER)[address] [place] [address] MCV (RBC) [Entitic vol] 93.2 fL Normal 82.0-98.0 [facility] Comment on above: Performed By: #### L [id number] ####[facility] (BE[facility]ER)[address] [place] [address] Monocytes (Bld) [#/Vol] 0.88 10*3/uL Normal 0.10-1.00 [facility] Comment on above: Performed By: #### L [id number] ####[facility] (BEAKER)[address] [place] [address] Monocytes/100 WBC (Bld) 7.6 % Normal 5.0-12.0 [facility] Comment on above: Performed By: #### L [id number] ####[facility] HOSPITAL LAB (BEAKER)[address] [place] [address] Neutrophils (Bld) [#/Vol] 8.22 10*3/uL High 1.60-7.60 [facility] Comment on above: Performed By: #### L [id number] ####[facility] (BEAKER)[address] [place] [address] Neutrophils/100 WBC (Bld) 71.2 % Normal 40.0-72.0 [facility] Comment on above: Performed By: #### L [id number] ####[facility] ([facility])[address] [place] [address] NRBC (PER 100 WBCS) BY AUTOMATED COUNT 0.0 % Normal 0 [facility] Comment on above: Performed By: #### L [id number] ####[facility] ([facility])[address] [place] [address] PLATELETS (10*3/UL) IN BLOOD AUTOMATED COUNT 294 10*3/uL Normal 150-400 [facility] Comment on above: Performed By: #### L [id number] ####[facility] ([facility])[address] [place] [address] RBC (Bld) [#/Vol] 3.97 10*6/uL Low 4.20-5.70 [facility] Comment on above: Performed By: #### L [id number] ####[facility] ([facility])[address] [place] [address] WBC (Bld) [#/Vol] 11.54 10*3/uL High 4.00-10.60 [facility] Comment on above: Performed By: #### L [id number] ####[facility] ([facility])[address] [place] [address] Follow-Upon 06-22-2024 Follow-Up [id number] Evans Forte 1970 M Date Provider Department Center 06/22/2024 [facility]ARD [place] [facility] Family History Problem Relation Age of Onset Breast cancer Mother Comments: age 53, METS to brain Heart disease Father Heart attack Father Comments: age 26 No Known Problems Sister Comments: half-sister Crohn's disease Daughter Comments: perforated bowel Family Status - Relation Status Age at Mother Father Sister Daughter Level of Service:29030 MO OFFICE/OUTPATIENT NEW HIGH MDM 60 MINUTES Reason for Visit and Comments: Cardiac evaluation for transplant [Other] - Follow for abnormal stress done 06/13/2024 Normal [facility] Labon 06-22-2024 Lab [id number] Jann,Evans Shen 1970 M Date Provider Department Center 06/22/2024 2245-[facility] OPD LAB RESOURCE [facility]PD [place] [facility] Family History Problem Relation Age of Onset Breast cancer Mother Comments: age 53, METS to brain Heart disease Father Heart attack Father Comments: age 26 No Known Problems Sister Comments: half-sister Crohn's disease Daughter Comments: perforated bowel Family Status - Relation Status Age at Mother Father Sister Daughter Normal [facility] HISTOLOGY - TISSUE EXAMon LAB AP CASE REPORT Normal [facility] Comment on above: Result Comment: Surg ical Pathology Case: [id number] Authorizing Provider: Anya Henley MD Collected: 06/20/2024 1141 Ordering Location: Pedro Melissa [facility] Received: 06/20/2024 1309 [facility] Pathologist: Carly Beard MD Specimen: Rectum, RECTUM POLYP Performed By: #### L [id number] ####[facility] ([facility])[address] [place] [address] LAB AP CLINICAL INFORMATION Order Diagnoses [facility] Comment on above: Result Comment: Z12. 11 - Screen for colon cancer [ICD-10-CM] Performed By: #### L [id number] ####[facility] ([facility])[address] [place] [address] LAB AP GROSS DESCRIPTION A. Rectum. [facility] Comment on above: Result Comment: [...] Toscano, student fellow Performed By: #### L [id number] ####[facility] (BEAKER)[address] [place] [address] LAB AP MICROSCOPIC DESCRIPTION Microscopic examination performed. [facility] Comment on above: Performed By: #### L [id number] ####[facility] ([facility])[address] [place] [address] LAB AP REPORT FINAL DIAGNOSIS NARRATIVE Normal [facility] Comment on above: Result Comment: Lisa Bone olon, rectal polyp, polypectomy: - Fragments of colonic mucosa with early hyperplastic changes and lymphoid aggregate. - Negative for dysplasia. Performed By: #### L [id number] ####[facility] ([facility])[address] [place] [address] HPon 06-20-2024 HP H&P reviewed. The patient was examined and there are no changes to the H&P. Here for surveillance colonoscopy with hx of multiple and large polyps in 2021 and poor prep. Normal [facility] NURSNOTEon 06-20-2024 NURSNOTE All positioning samaria rakesh removed pt remains supine. Normal [facility] POCT PERFUSION PANEL UNSOLIC ITED RESULTSon 06-20-2024 Glucose [Mass/Vol] 114 mg/dL High 70-105 [facility] Comment on above: Performed By: #### L [id number] ####[facility] ([facility])[address] [place] [address] POCT BASE EXCESS Normal [facility] Comment on above: Performed By: #### L [id number] ####[facility] ([facility])[address] [place] [address] POCT HCO3 Normal [facility] Comment on above: Performed By: #### L [id number] ####[facility] ([facility])[address] [place] [address] POCT HEMATOCRIT Normal [facility] Comment on above: Performed By: #### L [id number] ####[facility] ([facility])[address] [place] [address] POCT HEMOGLOBIN Normal [facility] Comment on above: Performed By: #### L [id number] ####[facility] HOSPITAL LAB (BEAKER)[address] [place] [address] POCT IONIZED CALCIUM Normal [facility] Comment on above: Performed By: #### L [id number] ####[facility] HOSPITAL LAB (BEAKER)[address] [place] [address] POCT PCO2 Normal [facility] Comment on above: Performed By: #### L [id number] ####[facility] HOSPITAL LAB (BEAKER)[address] [place] [address] POCT PH Normal [facility] Comment on above: Performed By: #### L [id number] ####[facility] HOSPITAL LAB (BEAKER)[address] [place] [address] POCT PO2 Normal [facility] Comment on above: Performed By: #### L [id number] ####[facility] HOSPITAL LAB (BEAKER)[address] [place] [address] POCT SO2 Normal [facility] Comment on above: Performed By: #### L [id number] ####[facility] HOSPITAL LAB (BEAKER)[address] [place] [address] POCT SODIUM Normal [facility] Comment on above: Performed By: #### L [id number] ####[facility] HOSPITAL LAB (BEAKER)[address] [place] [address] POCT TOTAL CO2 Normal [facility] Comment on above: Performed By: #### L [id number] ####[facility] HOSPITAL LAB (BEAKER)[address] [place] [address] Potassium [Moles/Vol] 4.4 mmol/L Normal 3.5-4.9 [facility] Comment on above: Performed By: #### L [id number] ####[facility] HOSPITAL LAB (BEAKER)[address] [place] [address] Prep for Procedureon 024 Prep for Procedure [id number] Evans Forte 1970 M Date Provider Department Center 06/20/2024 ANYA FERRARO [facility] Family History Problem Relation Age of Onset Breast cancer Mother Comments: age 53, METS to brain Heart disease Father Heart attack Father Comments: age 26 No Known Problems Sister Comments: half-sister Crohn's disease Daughter Comments: perforated bowel Family Status - Relation Status Age at Mother Father Sister Daughter [facility] 37on 06-14-2024 37 Patient called TC [...] is needed. 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 Patient stated understanding and scheduled his TE Re-eval for 07/11/24 and asked to be added to the cancellation list for any sooner appointments on Tuesdays and . TC confirmed and sent patient, referring MD and dialysis unit a letter. [facility] Glucose Glucometer (BldC) [M ass/Vol]Ordered By: Gi Mondragon on 12-24-2023 Glucose [Mass/Vol] 207 mg/dL [facility] Comment on above: Random Glucose Refer ence Range is dependent on time and content of last meal. Glucose of more than 200 mg/dL in a nonstressed, ambulatory subject supports the diagnosis of Diabetes Mellitus. No Panel InformationOrdered By: Gi Mondragon on 12-24-2023 Bedside Glucose Comment Glu2: cleaned meter [facility] Basophils Auto (Bld) [#/Vol] Ordered By: Buddy Murguia on 11-23-2023 Basophils (Bld) [#/Vol] 0.1 10*3/uL 0.0-0.2 [facility] Basophils/100 WBC Auto (Bld) Ordered By: Buddy Murguia on 11-23-2023 Basophils/100 WBC (Bld) 0.7 % . [facility] Calcium [Mass/volume] in Ser um or PlasmaOrdered By: Buddy Murguia on 11-23-2023 Calcium [Mass/Vol] 9.3 mg/dL 8.6-10.3 [facility] Carbon dioxide, total [Moles /volume] in Serum or PlasmaOrdered By: Buddy Murguia on 11-23-2023 CO2 [Moles/Vol] 25.0 mmol/L 21.0-31.0 [facility] Chloride [Moles/volume] in S james or PlasmaOrdered By: Buddy Murguia on 11-23-2023 Chloride [Moles/Vol] 102 mmol/L 98-107 [facility] Creatinine [Mass/volume] in Serum or PlasmaOrdered By: Buddy Murguia on 11-23-2023 Creatinine [Mass/Vol] 10.07 mg/dL 0.70-1.30 [facility] Comment on above: Delta: 9.33 on 11/21 Eosinophils Auto (Bld) [#/Vo l]Ordered By: Buddy Murguia on 11-23-2023 Eosinophils (Bld) [#/Vol] 0.4 10*3/uL 0.0-0.45 [facility] Eosinophils/100 WBC Auto (Bl d)Ordered By: Buddy Murguia on 11-23-2023 Eosinophils/100 WBC (Bld) 5.6 % . [facility] Erythrocyte distribution wid th Auto (RBC) [Ratio]Ordered By: Buddy Murguia on 11-23-2023 Erythrocyte distribution width (RBC) [Ratio] 15.7 % 12.0-14.8 [facility] Glucose Glucometer (BldC) [M ass/Vol]Ordered By: Amy Escudero on 11-23-2023 Glucose [Mass/Vol] 123 mg/dL [facility] Comment on above: Random Glucose Refer ence Range is dependent on time and content of last meal. Glucose of more than 200 mg/dL in a nonstressed, ambulatory subject supports the diagnosis of Diabetes Mellitus. Glucose [Mass/volume] in Ser um or PlasmaOrdered By: Buddy Murguia on 11-23-2023 Glucose [Mass/Vol] 94 mg/dL 70-100 [facility] Comment on above: ADA recommended refe rence rangeRandom Glucose Reference Range is dependent on time and content of last meal. Glucose of more than 200 mg/dL in a nonstressed, ambulatory subject supports the diagnosis of Diabetes Mellitus. Hematocrit Auto (Bld) [Volum e fraction]Ordered By: Buddy Murguia on 11-23-2023 Hematocrit (Bld) [Volume fraction] 35.2 % 38.8-50.0 [facility] Hemoglobin [Mass/volume] in BloodOrdered By: Buddy Murguia on 11-23-2023 Hemoglobin (Bld) [Mass/Vol] 11.3 g/dL 13.0-17.0 [facility] Leukocytes [#/volume] correc scott for nucleated erythrocytes in Blood by Automated counOrdered By: Buddy Murguia on 11-23-2023 WBC corrected for nucl RBC Auto (Bld) [#/Vol] 7.7 10*3/uL 4.1-10.5 [facility] Lymphocytes Auto (Bld) [#/Vo l]Ordered By: Buddy Murguia on 11-23-2023 Lymphocytes (Bld) [#/Vol] 1.6 10*3/uL 1.00-4.8 [facility] Lymphocytes/100 WBC Auto (Bl d)Ordered By: Buddy Murguia on 11-23-2023 Lymphocytes/100 WBC (Bld) 20.6 % . [facility] MCH Auto (RBC) [Entitic mass ]Ordered By: Buddy Murguia on 11-23-2023 MCH (RBC) [Entitic mass] 30.4 pg 27.5-35.2 [facility] MCHC Auto (RBC) [Mass/Vol]Or dered By: Buddy Murguia on 11-23-2023 MCHC (RBC) [Mass/Vol] 32.2 g/dL 32.5-35.6 [facility] MCV Auto (RBC) [Entitic vol] Ordered By: Buddy Murguia on 11-23-2023 MCV (RBC) [Entitic vol] 94.5 fL 83.5-101 [facility] Magnesium [Mass/volume] in S james or PlasmaOrdered By: Buddy Murguia on 11-23-2023 Magnesium [Mass/Vol] 2.7 mg/dL 1.9-2.7 [facility] Monocytes Auto (Bld) [#/Vol] Ordered By: Buddy Murguia on 11-23-2023 Monocytes (Bld) [#/Vol] 0.8 10*3/uL 0.0-0.8 [facility] Monocytes/100 WBC Auto (Bld) Ordered By: Buddy Murguia on 11-23-2023 Monocytes/100 WBC (Bld) 9.8 % . [facility] Neutrophils Auto (Bld) [#/Vo l]Ordered By: Buddy Murguia on 11-23-2023 Neutrophils (Bld) [#/Vol] 4.9 10*3/uL 1.8-7.7 [facility] Neutrophils/100 WBC Auto (Bl d)Ordered By: Buddy Murguia on 11-23-2023 Neutrophils/100 WBC (Bld) 63.3 % . [facility] No Panel InformationOrdered By: Buddy Murguia on 11-23-2023 Estimated GFR (CKD-EPI) 5.666 mL/Min [facility] Creatinine Clearance (Chem 13.08 [facility] Nucleated erythrocytes [Pres ence] in Blood by Automated countOrdered By: Buddy Murguia on 11-23-2023 Nucleated RBC Auto Ql (Bld) 0.0 /100{WBC} 0-0.5 [facility] Platelet mean volume Auto (B ld) [Entitic vol]Ordered By: Buddy Murguia on 11-23-2023 Platelet mean volume (Bld) [Entitic vol] 8.3 fL 6.6-10.1 [facility] Platelets Auto (Bld) [#/Vol] Ordered By: Buddy Murguia on 11-23-2023 Platelets (Bld) [#/Vol] 248 10*3/uL 150-450 [facility] Potassium [Moles/volume] in Serum or PlasmaOrdered By: Buddy Murguia on 11-23-2023 Potassium [Moles/Vol] 4.5 mmol/L 3.5-5.1 [facility] RBC Auto (Bld) [#/Vol]Ordere d By: Buddy Murguia on 11-23-2023 RBC (Bld) [#/Vol] 3.73 10*6/uL 3.90-5.60 [facility] Serum or plasma anion gap de terminationOrdered By: Buddy Murguia on 11-23-2023 Anion gap [Moles/Vol] 16.5 mmol/L 6.0-15.0 [facility] Sodium [Moles/volume] in Ser um or PlasmaOrdered By: Buddy Murguia on 11-23-2023 Sodium [Moles/Vol] 139 mmol/L 136-145 [facility] Urea nitrogen [Mass/volume] in Serum or PlasmaOrdered By: Buddy Murguia on 11-23-2023 Urea nitrogen [Mass/Vol] 74 mg/dL 7-25 [facility] WBC Auto (Bld) [#/Vol]Ordere d By: Buddy Murguia on 11-23-2023 WBC (Bld) [#/Vol] 7.7 10*3/uL 4.1-10.5 [facility] Prealbumin [Mass/volume] in Serum or PlasmaOrdered By: Yasmin Winchester on 11-22-2023 Prealbumin [Mass/Vol] 28.9 mg/dL 17.0-34.0 [facility] Automated erythrocytes count in urine sediment (number/area)Ordered By: Chong Dixon on 11-21-2023 RBC Auto (Urine sed) [#/Area] 1-2 [HPF] 0-4 [facility] Automated leukocytes count i n urine sediment (number/area)Ordered By: Chong Dixon on 11-21-2023 WBC Auto (Urine sed) [#/Area] 20-49 [HPF] 0-4 [facility] Bilirubin Test strip Ql (U)O rdered By: Chong Dixon on 11-21-2023 Bilirubin Ql (U) Negative Negative [facility] Color Auto (U)Ordered By: Tavon Dixon on 11-21-2023 Color (U) Yellow Yellow [facility] Glucose mean value [Mass/vol ume] in Blood Estimated from glycated hemoglobinOrdered By: Buddy Murguia on 11-21-2023 Average glucose Estimated from glycated hemoglobin (Bld) [Mass/Vol] 114 mg/dL [facility] Hemoglobin A1c percentageOrd ered By: Buddy Murguia on 11-21-2023 HbA1c (Bld) [Mass fraction] 5.6 % 4.3-5.6 [facility] Comment on above: Increased risk for d iabetes: 5.7 - 6.4diabetes: >6.4glycemic control for adults with diabetes: <7.0 Ketones Auto test strip (U) [Mass/Vol]Ordered By: Chong Dixon on 11-21-2023 Ketones (U) [Mass/Vol] Trace Negative [facility] - UrinalysisOrder ed By: Chong Dixon on 11-21-2023 Hyaline casts LM Ql (Urine sed) 9-19 [LPF] 0-8 [facility] Nitrite Test strip Ql (U)Ord ered By: Chong Dixon on 11-21-2023 Nitrite Ql (U) Negative Negative [facility] Protein Auto test strip (U) [Mass/Vol]Ordered By: Chong Dixon on 11-21-2023 Protein (U) [Mass/Vol] 300 mg/dL Negative [facility] Specific gravity Auto test s trip (U) [Rel density]Ordered By: Chong Dixon on 11-21-2023 Specific gravity (U) [Rel density] 1.021 1.001-1.030 [facility] Squamous epithelial cells de tection in urine sediment by light microscopyOrdered By: Chong Dixon on 11-21-2023 Epithelial cells.squamous LM Ql (Urine sed) 0-1 [HPF] 0-2 [facility] Urine bacteria detection by automated methodOrdered By: Chong Dixon on 11-21-2023 Bacteria Auto Ql (U) None seen None Seen [facility] Urine clarity by refractomet ry automatedOrdered By: Chong Dixon on 11-21-2023 Clarity Refractometry automated (U) Cloudy Clear [facility] Urine culture routineOrdered By: Chong Dixon on 11-21-2023 Bacteria identified Cx Nom (U) No Growth 2 Days [facility] Urine glucose measurement by automated test strip (mass/volume)Ordered By: Chong Dixon on 11-21-2023 Glucose Auto test strip (U) [Mass/Vol] Normal mg/dL Normal [facility] Urine hemoglobin detection b y automated test stripOrdered By: Chong Dixon on 11-21-2023 Hemoglobin Auto test strip Ql (U) 2+ Negative [facility] Urine leukocyte esterase det ection by automated test stripOrdered By: Chong Dixon on 11-21-2023 Leukocyte esterase Auto test strip Ql (U) 2+ Negative [facility] Urobilinogen Auto test strip (U) [Mass/Vol]Ordered By: Chong Dixon on 11-21-2023 Urobilinogen (U) [Mass/Vol] Normal mg/dL Normal [facility] Yeast detection in urine sed iment by light microscopyOrdered By: Chong Dixon on 11-21-2023 Yeast LM Ql (Urine sed) None seen [HPF] None Seen [facility] pH Auto test strip (U)Ordere d By: Chong Dixon on 11-21-2023 pH (U) 5.0 [pH] 5.0-9.0 [facility] Activated partial thrombopla stin time (aPTT) in platelet poor plasma by coagulation aOrdered By: Chong Dixon on 11-20-2023 aPTT Coag (PPP) [Time] 31.0 s 25.1-36.5 [facility] Comment on above: A hematocrit value g reater than 55% may lead to inaccurate results in coagulation testing. Patients having hematocrit values >55% require a special collection tube for coagulation studies. Please contact the laboratory at [phone] for redraw instructions. Alanine aminotransferase [En zymatic activity/volume] in Serum or PlasmaOrdered By: Chong Dixon on 11-20-2023 ALT [Catalytic activity/Vol] 25 U/L 7-52 [facility] Albumin [Mass/volume] in Ser um or Plasma by Bromocresol green (BCG) dye binding methoOrdered By: Chong Dixon on 11-20-2023 Albumin BCG dye [Mass/Vol] 4.4 g/dL 3.5-5.7 [facility] Alkaline phosphatase [Enzyma tic activity/volume] in Serum or PlasmaOrdered By: Chong Dixon on 11-20-2023 ALP [Catalytic activity/Vol] 51 U/L 34-104 [facility] Anisocytosis LM Ql (Bld)Orde red By: Chong Dixon on 11-20-2023 Anisocytosis Ql (Bld) Moderate [facility] Aspartate aminotransferase [ Enzymatic activity/volume] in Serum or PlasmaOrdered By: Chong Dixon on 11-20-2023 AST [Catalytic activity/Vol] 24 U/L 13-39 [facility] Bacterial blood cultureOrder ed By: Chong Dixon on 11-20-2023 Bacteria identified Cx Nom (Bld) NO GROWTH 5 DAYS [facility] Basophils Auto (Bld) [#/Vol] Ordered By: Chong Dixon on 11-20-2023 Basophils (Bld) [#/Vol] N/A [facility] Basophils/100 WBC Auto (Bld) Ordered By: Chong Dixon on 11-20-2023 Basophils/100 WBC (Bld) N/A [facility] Bilirubin.total [Mass/volume ] in Serum or PlasmaOrdered By: Chong Dixon on 11-20-2023 Bilirubin [Mass/Vol] 0.6 mg/dL 0.3-1.0 [facility] C reactive protein [Mass/vol ume] in Serum or PlasmaOrdered By: Chong Dixon on 11-20-2023 CRP [Mass/Vol] 3.9 mg/dL 0.0-0.5 [facility] COVID-19 Detected/Not Detect edOrdered By: Chong Dixon on 11-20-2023 SARS-CoV-2 (COVID-19) RNA SAHY+non-probe Ql (Nph) Not detected Not Detecte [facility] Comment on above: This is a duplicate RP2.1 COVID (PCR) result to be used for statistical tracking purpose only. Calcium [Mass/volume] in Ser um or PlasmaOrdered By: Chong Dixon on 11-20-2023 Calcium [Mass/Vol] 8.9 mg/dL 8.6-10.3 [facility] Carbon dioxide, total [Moles /volume] in Serum or PlasmaOrdered By: Chong Dixon on 11-20-2023 CO2 [Moles/Vol] 21.9 mmol/L 21.0-31.0 [facility] Chloride [Moles/volume] in S james or PlasmaOrdered By: Chong Dixon on 11-20-2023 Chloride [Moles/Vol] 103 mmol/L 98-107 [facility] Creatine kinase [Enzymatic a ctivity/volume] in Serum or PlasmaOrdered By: Chong Dixon on 11-20-2023 CK [Catalytic activity/Vol] 135 U/L 30-223 [facility] Creatinine [Mass/volume] in Serum or PlasmaOrdered By: Chong Dixon on 11-20-2023 Creatinine [Mass/Vol] 6.29 mg/dL 0.70-1.30 [facility] Eosinophils Auto (Bld) [#/Vo l]Ordered By: Chong Dixon on 11-20-2023 Eosinophils (Bld) [#/Vol] N/A [facility] Eosinophils/100 WBC Auto (Bl d)Ordered By: Chong Dixon on 11-20-2023 Eosinophils/100 WBC (Bld) N/A [facility] Erythrocyte distribution wid th Auto (RBC) [Ratio]Ordered By: Chong Dixon on 11-20-2023 Erythrocyte distribution width (RBC) [Ratio] 16.1 % 12.0-14.8 [facility] Erythrocyte sedimentation ra te by Photometric methodOrdered By: Chong Dixon on 11-20-2023 ESR Photometric method (Bld) [Velocity] 66 mm/hr 0-19 [facility] Globulin Calc (S) [Mass/Vol] Ordered By: Chong Dixon on 11-20-2023 Globulin (S) [Mass/Vol] 3.9 g/dL [facility] Glucose Glucometer (BldC) [M ass/Vol]Ordered By: Chong Dixon on 11-20-2023 Glucose [Mass/Vol] 111 mg/dL [facility] Comment on above: Random Glucose Refer ence Range is dependent on time and content of last meal. Glucose of more than 200 mg/dL in a nonstressed, ambulatory subject supports the diagnosis of Diabetes Mellitus. Glucose [Mass/volume] in Ser um or PlasmaOrdered By: Chong Dixon on 11-20-2023 Glucose [Mass/Vol] 121 mg/dL 70-100 [facility] Comment on above: ADA recommended refe rence rangeRandom Glucose Reference Range is dependent on time and content of last meal. Glucose of more than 200 mg/dL in a nonstressed, ambulatory subject supports the diagnosis of Diabetes Mellitus. Hematocrit Auto (Bld) [Volum e fraction]Ordered By: Chong Dixon on 11-20-2023 Hematocrit (Bld) [Volume fraction] 38.8 % 38.8-50.0 [facility] Hemoglobin [Mass/volume] in BloodOrdered By: Chong Dixon on 11-20-2023 Hemoglobin (Bld) [Mass/Vol] 12.5 g/dL 13.0-17.0 [facility] INR in Platelet poor plasma by Coagulation assayOrdered By: Chong Dixon on 11-20-2023 INR Coag (PPP) [Relative time] 1.1 {INR} [facility] Comment on above: INR Therapeutic Rang [...] on 11-20-2023 Lactate [Moles/Vol] 1.7 mmol/L 0.5-2.2 [facility] Leukocytes [#/volume] correc scott for nucleated erythrocytes in Blood by Automated counOrdered By: Chong Dixon on 11-20-2023 WBC corrected for nucl RBC Auto (Bld) [#/Vol] 19.5 10*3/uL 4.1-10.5 [facility] Lymphocytes Auto (Bld) [#/Vo l]Ordered By: Chong Dixon on 11-20-2023 Lymphocytes (Bld) [#/Vol] N/A [facility] Lymphocytes/100 WBC Auto (Bl d)Ordered By: Chong Dixon on 11-20-2023 Lymphocytes/100 WBC (Bld) N/A [facility] Lymphocytes/100 WBC Manual c nt (Bld)Ordered By: Chong Dixon on 11-20-2023 Lymphocytes/100 WBC (Bld) 1 % 18-42 [facility] MCH Auto (RBC) [Entitic mass ]Ordered By: Chong Dixon on 11-20-2023 MCH (RBC) [Entitic mass] 30.2 pg 27.5-35.2 [facility] MCHC Auto (RBC) [Mass/Vol]Or dered By: Chong Dixon on 11-20-2023 MCHC (RBC) [Mass/Vol] 32.2 g/dL 32.5-35.6 [facility] MCV Auto (RBC) [Entitic vol] Ordered By: Chong Dixon on 11-20-2023 MCV (RBC) [Entitic vol] 94.0 fL 83.5-101 [facility] Magnesium [Mass/volume] in S james or PlasmaOrdered By: Chong Dixon on 11-20-2023 Magnesium [Mass/Vol] 1.6 mg/dL 1.9-2.7 [facility] Microcytes LM Ql (Bld)Ordere d By: Chong Dixon on 11-20-2023 Microcytes Ql (Bld) Slight [facility] Monocyte distribution width [Entitic volume] in Blood by AutomatedOrdered By: Chong Dixon on 11-20-2023 Monocyte distribution width Auto (Bld) [Entitic vol] 25.63 % 0.00-20.00 [facility] Comment on above: The predictive value of MDW for identifying sepsis in patients with hematological abnormalities has not been established Monocytes Auto (Bld) [#/Vol] Ordered By: Chong Dixon on 11-20-2023 Monocytes (Bld) [#/Vol] N/A [facility] Monocytes/100 WBC Auto (Bld) Ordered By: Chong Dixon on 11-20-2023 Monocytes/100 WBC (Bld) N/A [facility] Monocytes/100 WBC Manual cnt (Bld)Ordered By: Chong Dixon on 11-20-2023 Monocytes/100 WBC (Bld) 4 % 2-11 [facility] Natriuretic peptide B [Mass/ Vol]Ordered By: Chong Dixon on 11-20-2023 Natriuretic peptide B (Bld) [Mass/Vol] 15.0 pg/mL 5-100 [facility] Neutrophils Auto (Bld) [#/Vo l]Ordered By: Chong Dixon on 11-20-2023 Neutrophils (Bld) [#/Vol] N/A [facility] Neutrophils/100 WBC Auto (Bl d)Ordered By: Chong Dixon on 11-20-2023 Neutrophils/100 WBC (Bld) N/A [facility] No Panel InformationOrdered By: Chong Dixon on 11-20-2023 Estimated GFR (CKD-EPI) 9.967 mL/Min [facility] Creatinine Clearance (Chem 21.03 [facility] Nucleated erythrocytes [Pres ence] in Blood by Automated countOrdered By: Chong Dixon on 11-20-2023 Nucleated RBC Auto Ql (Bld) N/A [facility] Platelet adequacy [Presence] in Blood by Light microscopyOrdered By: Chong Dixon on 11-20-2023 Platelets LM Ql (Bld) Normal Normal [facility] Platelet mean volume Auto (B ld) [Entitic vol]Ordered By: Chong Dixon on 11-20-2023 Platelet mean volume (Bld) [Entitic vol] 8.0 fL 6.6-10.1 [facility] Platelet morphology finding [Identifier] in BloodOrdered By: Chong Dixon on 11-20-2023 Platelet morphology finding Nom (Bld) Normal Normal [facility] Platelets Auto (Bld) [#/Vol] Ordered By: Chong Dixon on 11-20-2023 Platelets (Bld) [#/Vol] 280 10*3/uL 150-450 [facility] Potassium [Moles/volume] in Serum or PlasmaOrdered By: Chong Dixon on 11-20-2023 Potassium [Moles/Vol] 4.2 mmol/L 3.5-5.1 [facility] Protein [Mass/volume] in Ser um or PlasmaOrdered By: Chong Dixon on 11-20-2023 Protein [Mass/Vol] 8.3 g/dL 6.4-8.9 [facility] Prothrombin time (PT)Ordered By: Chong Dixon on 11-20-2023 PT Coag (PPP) [Time] 12.8 s 9.0-12.9 [facility] Comment on above: A hematocrit value g reater than 55% may lead to inaccurate results in coagulation testing. Patients having hematocrit values >55% require a special collection tube for coagulation studies. Please contact the laboratory at [phone] for redraw instructions. RBC Auto (Bld) [#/Vol]Ordere d By: Chong Dixon on 11-20-2023 RBC (Bld) [#/Vol] 4.12 10*6/uL 3.90-5.60 [facility] RBC morphologyOrdered By: Tavon Dixon on 11-20-2023 RBC morphology finding Nom (Bld) N/A [facility] Red blood cell stomatocyte d etectionOrdered By: Chong Dixon on 11-20-2023 Stomatocytes LM Ql (Bld) Slight [facility] Respiratory pathogens DNA an d RNA panel - Nasopharynx by SHAY with non-probe detectionOrdered By: Chong Dixon on 11-20-2023 Respiratory pathogens DNA and RNA panel SHAY+non-probe (Nph) [facility] Segmented neutrophils/100 WB C Manual cnt (Bld)Ordered By: Chong Dixon on 11-20-2023 Segmented neutrophils/100 WBC (Bld) 94 % 50-70 [facility] Serum or plasma albumin/glob ulin mass ratioOrdered By: Chong Dixon on 11-20-2023 Albumin/Globulin [Mass ratio] 1.1 {ratio} [facility] Serum or plasma anion gap de terminationOrdered By: Chong Dixon on 11-20-2023 Anion gap [Moles/Vol] 17.3 mmol/L 6.0-15.0 [facility] Sodium [Moles/volume] in Ser um or PlasmaOrdered By: Chong Dixon on 11-20-2023 Sodium [Moles/Vol] 138 mmol/L 136-145 [facility] Thyrotropin [Units/volume] i n Serum or PlasmaOrdered By: Chong Dixon on 11-20-2023 TSH Qn 1.36 m[IU]/L 0.45-5.33 [facility] Troponin I.cardiac [Mass/vol ume] in Serum or Plasma by Detection limit <= 0.01 ng/Ordered By: Chong Dixon on 11-20-2023 Troponin I.cardiac DL <= 0.01 ng/mL [Mass/Vol] 15.2 pg/mL 0.0-20.0 [facility] Urea nitrogen [Mass/volume] in Serum or PlasmaOrdered By: Chong Dixon on 11-20-2023 Urea nitrogen [Mass/Vol] 32 mg/dL 7-25 [facility] Variant lymphocytes/100 WBC Manual cnt (Bld)Ordered By: Chong Dixon on 11-20-2023 Variant lymphocytes/100 WBC (Bld) 1 % 0-12 [facility] WBC Auto (Bld) [#/Vol]Ordere d By: Chong Dixon on 11-20-2023 WBC (Bld) [#/Vol] 19.5 10*3/uL 4.1-10.5 [facility] Glucose Glucometer (BldC) [M ass/Vol]Ordered By: Flakito High on 10-27-2023 Glucose [Mass/Vol] 106 mg/dL [facility] Comment on above: Random Glucose Refer ence Range is dependent on time and content of last meal. Glucose of more than 200 mg/dL in a nonstressed, ambulatory subject supports the diagnosis of Diabetes Mellitus. Hematocrit Auto (Bld) [Volum e fraction]Ordered By: Alec Gardner on 10-27-2023 Hematocrit (Bld) [Volume fraction] 31.6 % 38.8-50.0 [facility] Hemoglobin [Mass/volume] in BloodOrdered By: Alec Gardner on 10-27-2023 Hemoglobin (Bld) [Mass/Vol] 10.3 g/dL 13.0-17.0 [facility] No Panel InformationOrdered By: Flakito High on 10-27-2023 Bedside Glucose Comment Glu2: cleaned meter [facility] Potassium [Moles/volume] in Serum or PlasmaOrdered By: Alec Gardner on 10-27-2023 Potassium [Moles/Vol] 4.5 mmol/L 3.5-5.1 [facility] Basic metabolic 1998 panelon 10-18-2023 Anion gap [Moles/Vol] 19.8 mmol/L High 6.0 - 15.0 [facility] Calcium [Mass/Vol] 9.2 mg/dL 8.6 - 10. 3 mg/dL [facility] Chloride [Moles/Vol] 103 mmol/L 98 - 10 7 mmol/L [facility] CO2 [Moles/Vol] 22.6 mmol/L 21.0 - 31.0 mmol/L [facility] Creatinine (U) [Mass/Vol] 9.63 mg/dL High 0.70 - 1.30 mg/dL [facility] GFR/1.73 sq M.predicted MDRD (S/P/Bld) [Vol rate/Area] 5.979 mL/min/{1.73_m2} [facility] Glucose [Mass/Vol] 105 mg/dL High 70 - 100 mg/dL [facility] Comment on above: Random Glucose Refer ence Range is dependent on time and content of last meal. Glucose of more than 200 mg/dL in a nonstressed, ambulatory subject supports the diagnosis of Diabetes Mellitus. ADA recommended reference range Interpretation and review of laboratory results Abnormal [facility] Potassium [Moles/Vol] 4.4 mmol/L 3.5 - 5.1 mmol/L [facility] Sodium [Moles/Vol] 141 mmol/L 136 - 145 mmol/L [facility] Urea nitrogen [Mass/Vol] 67 mg/dL High 7 - 25 mg/dL [facility] Basophils Auto (Bld) [#/Vol] Ordered By: Flakito High on 10-18-2023 Basophils (Bld) [#/Vol] 0.1 10*3/uL 0.0-0.2 [facility] Basophils/100 WBC Auto (Bld) Ordered By: Flakito High on 10-18-2023 Basophils/100 WBC (Bld) 0.9 % . [facility] Calcium [Mass/volume] in Ser um or PlasmaOrdered By: Flakito High on 10-18-2023 Calcium [Mass/Vol] 9.2 mg/dL 8.6-10.3 [facility] Carbon dioxide, total [Moles /volume] in Serum or PlasmaOrdered By: Flakito High on 10-18-2023 CO2 [Moles/Vol] 22.6 mmol/L 21.0-31.0 [facility] Chloride [Moles/volume] in S james or PlasmaOrdered By: Flakito High on 10-18-2023 Chloride [Moles/Vol] 103 mmol/L 98-107 [facility] [facility] Creatinine [Mass/volume] in Serum or PlasmaOrdered By: Flakito High on 10-18-2023 Creatinine [Mass/Vol] 9.63 mg/dL 0.70-1.30 [facility] Eosinophils Auto (Bld) [#/Vo l]Ordered By: Flakito High on 10-18-2023 Eosinophils (Bld) [#/Vol] 0.5 10*3/uL 0.0-0.45 [facility] Eosinophils/100 WBC Auto (Bl d)Ordered By: Flakito High on 10-18-2023 Eosinophils/100 WBC (Bld) 4.2 % . [facility] Erythrocyte distribution wid th Auto (RBC) [Ratio]Ordered By: Flakito High on 10-18-2023 Erythrocyte distribution width (RBC) [Ratio] 15.5 % 12.0-14.8 [facility] Glucose [Mass/volume] in Ser um or PlasmaOrdered By: Flakito High on 10-18-2023 Glucose [Mass/Vol] 105 mg/dL 70-100 [facility] Comment on above: ADA recommended refe rence rangeRandom Glucose Reference Range is dependent on time and content of last meal. Glucose of more than 200 mg/dL in a nonstressed, ambulatory subject supports the diagnosis of Diabetes Mellitus. Hematocrit Auto (Bld) [Volum e fraction]Ordered By: Flakito High on 10-18-2023 Hematocrit (Bld) [Volume fraction] 32.0 % 38.8-50.0 [facility] Hemoglobin [Mass/volume] in BloodOrdered By: Flakito High on 10-18-2023 Hemoglobin (Bld) [Mass/Vol] 10.6 g/dL 13.0-17.0 [facility] Leukocytes [#/volume] correc scott for nucleated erythrocytes in Blood by Automated counOrdered By: Flakito High on 10-18-2023 WBC corrected for nucl RBC Auto (Bld) [#/Vol] 10.8 10*3/uL 4.1-10.5 [facility] Lymphocytes Auto (Bld) [#/Vo l]Ordered By: Flakito High on 10-18-2023 Lymphocytes (Bld) [#/Vol] 1.4 10*3/uL 1.00-4.8 [facility] Lymphocytes/100 WBC Auto (Bl d)Ordered By: Flakito High on 10-18-2023 Lymphocytes/100 WBC (Bld) 12.5 % . [facility] MCH Auto (RBC) [Entitic mass ]Ordered By: Flakito High on 10-18-2023 MCH (RBC) [Entitic mass] 31.2 pg 27.5-35.2 [facility] MCHC Auto (RBC) [Mass/Vol]Or dered By: Flakito High on 10-18-2023 MCHC (RBC) [Mass/Vol] 33.2 g/dL 32.5-35.6 [facility] MCV Auto (RBC) [Entitic vol] Ordered By: Flakito High on 10-18-2023 MCV (RBC) [Entitic vol] 93.8 fL 83.5-101 [facility] Monocytes Auto (Bld) [#/Vol] Ordered By: Flakito High on 10-18-2023 Monocytes (Bld) [#/Vol] 0.8 10*3/uL 0.0-0.8 [facility] Monocytes/100 WBC Auto (Bld) Ordered By: Flakito High on 10-18-2023 Monocytes/100 WBC (Bld) 7.8 % . [facility] Neutrophils Auto (Bld) [#/Vo l]Ordered By: Flakito High on 10-18-2023 Neutrophils (Bld) [#/Vol] 8.1 10*3/uL 1.8-7.7 [facility] Neutrophils/100 WBC Auto (Bl d)Ordered By: Flakito High on 10-18-2023 Neutrophils/100 WBC (Bld) 74.6 % . [facility] No Panel InformationOrdered By: Flakito High on 10-18-2023 Estimated GFR (CKD-EPI) 5.979 mL/Min [facility] Creatinine Clearance (Chem N/A [facility] Nucleated erythrocytes [Pres ence] in Blood by Automated countOrdered By: Flakito High on 10-18-2023 Nucleated RBC Auto Ql (Bld) 0.1 /100{WBC} 0-0.5 [facility] Platelet mean volume Auto (B ld) [Entitic vol]Ordered By: Flakito High on 10-18-2023 Platelet mean volume (Bld) [Entitic vol] 7.4 fL 6.6-10.1 [facility] Platelets Auto (Bld) [#/Vol] Ordered By: Flakito High on 10-18-2023 Platelets (Bld) [#/Vol] 391 10*3/uL 150-450 [facility] Potassium [Moles/volume] in Serum or PlasmaOrdered By: Flakito High on 10-18-2023 Potassium [Moles/Vol] 4.4 mmol/L 3.5-5.1 [facility] RBC Auto (Bld) [#/Vol]Ordere d By: Flakito High on 10-18-2023 RBC (Bld) [#/Vol] 3.41 10*6/uL 3.90-5.60 [facility] Serum or plasma anion gap de terminationOrdered By: Flakito High on 10-18-2023 Anion gap [Moles/Vol] 19.8 mmol/L 6.0-15.0 [facility] Sodium [Moles/volume] in Ser um or PlasmaOrdered By: Flakito High on 10-18-2023 Sodium [Moles/Vol] 141 mmol/L 136-145 [facility] Urea nitrogen [Mass/volume] in Serum or PlasmaOrdered By: Flakito High on 10-18-2023 Urea nitrogen [Mass/Vol] 67 mg/dL 7-25 [facility] WBC Auto (Bld) [#/Vol]Ordere d By: Flakito High on 10-18-2023 WBC (Bld) [#/Vol] 10.8 10*3/uL 4.1-10.5 [facility] Alanine aminotransferase [En zymatic activity/volume] in Serum or PlasmaOrdered By: Tyesha Sweet on 09-25-2023 ALT [Catalytic activity/Vol] 22 U/L 7-52 [facility] Albumin [Mass/volume] in Ser um or Plasma by Bromocresol green (BCG) dye binding methoOrdered By: Tyesha Sweet on 09-25-2023 Albumin BCG dye [Mass/Vol] 4.1 g/dL 3.5-5.7 [facility] Alkaline phosphatase [Enzyma tic activity/volume] in Serum or PlasmaOrdered By: Tyesha Sweet on 09-25-2023 ALP [Catalytic activity/Vol] 40 U/L 34-104 [facility] Aspartate aminotransferase [ Enzymatic activity/volume] in Serum or PlasmaOrdered By: Tyesha Sweet on 09-25-2023 AST [Catalytic activity/Vol] 22 U/L 13-39 [facility] Basophils Auto (Bld) [#/Vol] Ordered By: Tyesha Sweet on 09-25-2023 Basophils (Bld) [#/Vol] 0.1 10*3/uL 0.0-0.2 [facility] Basophils/100 WBC Auto (Bld) Ordered By: Tyesha Sweet on 09-25-2023 Basophils/100 WBC (Bld) 1.1 % . [facility] Bilirubin.total [Mass/volume ] in Serum or PlasmaOrdered By: Tyesha Sweet on 09-25-2023 Bilirubin [Mass/Vol] 0.3 mg/dL 0.3-1.0 [facility] COVID CepheidOrdered By: Joyce Sweet on 09-25-2023 SARS-CoV-2 (COVID-19) Ab IA Ql Negative Negative [facility] Comment on above: This is a duplicate [employer] Xpert Xpress CoV-2/Flu/RSV Plus RNA by RT-PCR result to be used for statistical tracking purpose only. SARS-CoV-2 (COVID-19) RNA SHAY+probe Ql (Unsp spec) [facility] SARS-CoV-2 (COVID-19) RNA SHAY+probe Ql (Unsp spec) [facility] Calcium [Mass/volume] in Ser um or PlasmaOrdered By: Tyesha Sweet on 09-25-2023 Calcium [Mass/Vol] 8.6 mg/dL 8.6-10.3 [facility] Carbon dioxide, total [Moles /volume] in Serum or PlasmaOrdered By: Tyesha Sweet on 09-25-2023 CO2 [Moles/Vol] 22.6 mmol/L 21.0-31.0 [facility] Chloride [Moles/volume] in S james or PlasmaOrdered By: Tyesha Sweet on 09-25-2023 Chloride [Moles/Vol] 102 mmol/L 98-107 [facility] Creatinine [Mass/volume] in Serum or PlasmaOrdered By: Tyesha Sweet on 09-25-2023 Creatinine [Mass/Vol] 5.80 mg/dL 0.70-1.30 [facility] Eosinophils Auto (Bld) [#/Vo l]Ordered By: Tyesha Sweet on 09-25-2023 Eosinophils (Bld) [#/Vol] 0.4 10*3/uL 0.0-0.45 [facility] Eosinophils/100 WBC Auto (Bl d)Ordered By: Tyesha Sweet on 09-25-2023 Eosinophils/100 WBC (Bld) 3.4 % . [facility] Erythrocyte distribution wid th Auto (RBC) [Ratio]Ordered By: Tyesha Sweet on 09-25-2023 Erythrocyte distribution width (RBC) [Ratio] 14.7 % 12.0-14.8 [facility] Globulin Calc (S) [Mass/Vol] Ordered By: Tyesha Sweet on 09-25-2023 Globulin (S) [Mass/Vol] 3.7 g/dL [facility] Glucose [Mass/volume] in Ser um or PlasmaOrdered By: Tyesha Sweet on 09-25-2023 Glucose [Mass/Vol] 129 mg/dL 70-100 [facility] Comment on above: ADA recommended refe rence rangeRandom Glucose Reference Range is dependent on time and content of last meal. Glucose of more than 200 mg/dL in a nonstressed, ambulatory subject supports the diagnosis of Diabetes Mellitus. Hematocrit Auto (Bld) [Volum e fraction]Ordered By: Tyesha Sweet on 09-25-2023 Hematocrit (Bld) [Volume fraction] 28.0 % 38.8-50.0 [facility] Hemoglobin [Mass/volume] in BloodOrdered By: Tyesha Sweet on 09-25-2023 Hemoglobin (Bld) [Mass/Vol] 9.5 g/dL 13.0-17.0 [facility] Leukocytes [#/volume] correc scott for nucleated erythrocytes in Blood by Automated counOrdered By: Tyesha Sweet on 09-25-2023 WBC corrected for nucl RBC Auto (Bld) [#/Vol] 11.7 10*3/uL 4.1-10.5 [facility] Lymphocytes Auto (Bld) [#/Vo l]Ordered By: Tyesha Sweet on 09-25-2023 Lymphocytes (Bld) [#/Vol] 1.7 10*3/uL 1.00-4.8 [facility] Lymphocytes/100 WBC Auto (Bl d)Ordered By: Tyesha Sweet on 09-25-2023 Lymphocytes/100 WBC (Bld) 14.2 % . [facility] MCH Auto (RBC) [Entitic mass ]Ordered By: Tyesha Sweet on 09-25-2023 MCH (RBC) [Entitic mass] 31.2 pg 27.5-35.2 [facility] MCHC Auto (RBC) [Mass/Vol]Or dered By: Tyesha Sweet on 09-25-2023 MCHC (RBC) [Mass/Vol] 34.1 g/dL 32.5-35.6 [facility] MCV Auto (RBC) [Entitic vol] Ordered By: Tyesha Sweet on 09-25-2023 MCV (RBC) [Entitic vol] 91.4 fL 83.5-101 [facility] Monocyte distribution width [Entitic volume] in Blood by AutomatedOrdered By: Tyesha Sweet on 09-25-2023 Monocyte distribution width Auto (Bld) [Entitic vol] 21.57 % 0.00-20.00 [facility] Comment on above: For adults in ED, MD W > 20.0 may be associated with a higher risk of sepsis during the first 12 hrs of hospital admission Monocytes Auto (Bld) [#/Vol] Ordered By: Tyesha Sweet on 09-25-2023 Monocytes (Bld) [#/Vol] 0.8 10*3/uL 0.0-0.8 [facility] Monocytes/100 WBC Auto (Bld) Ordered By: Tyesha Sweet on 09-25-2023 Monocytes/100 WBC (Bld) 6.8 % . [facility] Natriuretic peptide B [Mass/ Vol]Ordered By: Tyesha Sweet on 09-25-2023 Natriuretic peptide B (Bld) [Mass/Vol] 16.0 pg/mL 5-100 [facility] Neutrophils Auto (Bld) [#/Vo l]Ordered By: Tyesha Sweet on 09-25-2023 Neutrophils (Bld) [#/Vol] 8.7 10*3/uL 1.8-7.7 [facility] Neutrophils/100 WBC Auto (Bl d)Ordered By: Tyesha Sweet on 09-25-2023 Neutrophils/100 WBC (Bld) 74.5 % . [facility] No Panel InformationOrdered By: Tyesha Sweet on 09-25-2023 Estimated GFR (CKD-EPI) 10.985 mL/Min [facility] Creatinine Clearance (Chem 23.13 [facility] Nucleated erythrocytes [Pres ence] in Blood by Automated countOrdered By: Tyesha Sweet on 09-25-2023 Nucleated RBC Auto Ql (Bld) 0.1 /100{WBC} 0-0.5 [facility] Platelet mean volume Auto (B ld) [Entitic vol]Ordered By: Tyesha Sweet on 09-25-2023 Platelet mean volume (Bld) [Entitic vol] 7.9 fL 6.6-10.1 [facility] Platelets Auto (Bld) [#/Vol] Ordered By: Tyesha Sweet on 09-25-2023 Platelets (Bld) [#/Vol] 330 10*3/uL 150-450 [facility] Potassium [Moles/volume] in Serum or PlasmaOrdered By: Tyesha Sweet on 09-25-2023 Potassium [Moles/Vol] 3.8 mmol/L 3.5-5.1 [facility] Protein [Mass/volume] in Ser um or PlasmaOrdered By: Tyesha Sweet on 09-25-2023 Protein [Mass/Vol] 7.8 g/dL 6.4-8.9 [facility] RBC Auto (Bld) [#/Vol]Ordere d By: Tyesha Sweet on 09-25-2023 RBC (Bld) [#/Vol] 3.06 10*6/uL 3.90-5.60 [facility] Serum or plasma albumin/glob ulin mass ratioOrdered By: Tyesha Sweet on 09-25-2023 Albumin/Globulin [Mass ratio] 1.1 {ratio} [facility] Serum or plasma anion gap de terminationOrdered By: Tyesha Sweet on 09-25-2023 Anion gap [Moles/Vol] 14.2 mmol/L 6.0-15.0 [facility] Sodium [Moles/volume] in Ser um or PlasmaOrdered By: Tyesha Sweet on 09-25-2023 Sodium [Moles/Vol] 135 mmol/L 136-145 [facility] Troponin I.cardiac [Mass/vol ume] in Serum or Plasma by Detection limit <= 0.01 ng/Ordered By: Tyesha Sweet on 09-25-2023 Troponin I.cardiac DL <= 0.01 ng/mL [Mass/Vol] 55.3 pg/mL 0.0-20.0 [facility] Comment on above: Critical Result : Ca lled to and read back by: JUDAH LOWRY at: 09/25/2023 23:49:03 by:CHARLIE Urea nitrogen [Mass/volume] in Serum or PlasmaOrdered By: Tyesha Sweet on 09-25-2023 Urea nitrogen [Mass/Vol] 43 mg/dL 7-25 [facility] WBC Auto (Bld) [#/Vol]Ordere d By: Tyesha Sweet on 09-25-2023 WBC (Bld) [#/Vol] 11.7 10*3/uL 4.1-10.5 [facility] Basophils Auto (Bld) [#/Vol] Ordered By: Moses Boateng on 09-16-2023 Basophils (Bld) [#/Vol] 0.0 10*3/uL 0.0-0.2 [facility] Basophils/100 WBC Auto (Bld) Ordered By: Moses Boateng on 09-16-2023 Basophils/100 WBC (Bld) 0.4 % . [facility] Calcium [Mass/volume] in Ser um or PlasmaOrdered By: Moses Boateng on 09-16-2023 Calcium [Mass/Vol] 8.2 mg/dL 8.6-10.3 [facility] Carbon dioxide, total [Moles /volume] in Serum or PlasmaOrdered By: Moses Boateng on 09-16-2023 CO2 [Moles/Vol] 23.5 mmol/L 21.0-31.0 [facility] Chloride [Moles/volume] in S james or PlasmaOrdered By: Moses Boateng on 09-16-2023 Chloride [Moles/Vol] 106 mmol/L 98-107 [facility] Creatinine [Mass/volume] in Serum or PlasmaOrdered By: Moses Boateng on 09-16-2023 Creatinine [Mass/Vol] 10.67 mg/dL 0.70-1.30 [facility] Eosinophils Auto (Bld) [#/Vo l]Ordered By: Moses Boateng on 09-16-2023 Eosinophils (Bld) [#/Vol] 0.4 10*3/uL 0.0-0.45 [facility] Eosinophils/100 WBC Auto (Bl d)Ordered By: Moses Boateng on 09-16-2023 Eosinophils/100 WBC (Bld) 3.5 % . [facility] Erythrocyte distribution wid th Auto (RBC) [Ratio]Ordered By: Moses Boateng on 09-16-2023 Erythrocyte distribution width (RBC) [Ratio] 14.9 % 12.0-14.8 [facility] Glucose Glucometer (BldC) [M ass/Vol]Ordered By: Ramirez Jean on 09-16-2023 Glucose [Mass/Vol] 103 mg/dL [facility] Comment on above: Random Glucose Refer ence Range is dependent on time and content of last meal. Glucose of more than 200 mg/dL in a nonstressed, ambulatory subject supports the diagnosis of Diabetes Mellitus. Glucose [Mass/volume] in Ser um or PlasmaOrdered By: Moses Boateng on 09-16-2023 Glucose [Mass/Vol] 93 mg/dL 70-100 [facility] Comment on above: ADA recommended refe rence rangeRandom Glucose Reference Range is dependent on time and content of last meal. Glucose of more than 200 mg/dL in a nonstressed, ambulatory subject supports the diagnosis of Diabetes Mellitus. Hematocrit Auto (Bld) [Volum e fraction]Ordered By: Moses Boateng on 09-16-2023 Hematocrit (Bld) [Volume fraction] 26.0 % 38.8-50.0 [facility] Hemoglobin [Mass/volume] in BloodOrdered By: Moses Boateng on 09-16-2023 Hemoglobin (Bld) [Mass/Vol] 8.7 g/dL 13.0-17.0 [facility] Leukocytes [#/volume] correc scott for nucleated erythrocytes in Blood by Automated counOrdered By: Moses Boateng on 09-16-2023 WBC corrected for nucl RBC Auto (Bld) [#/Vol] 11.3 10*3/uL 4.1-10.5 [facility] Lymphocytes Auto (Bld) [#/Vo l]Ordered By: Moses Boateng on 09-16-2023 Lymphocytes (Bld) [#/Vol] 1.7 10*3/uL 1.00-4.8 [facility] Lymphocytes/100 WBC Auto (Bl d)Ordered By: Moses Boateng on 09-16-2023 Lymphocytes/100 WBC (Bld) 14.7 % . [facility] MCH Auto (RBC) [Entitic mass ]Ordered By: Moses Boateng on 09-16-2023 MCH (RBC) [Entitic mass] 30.7 pg 27.5-35.2 [facility] MCHC Auto (RBC) [Mass/Vol]Or dered By: Moses Boateng on 09-16-2023 MCHC (RBC) [Mass/Vol] 33.4 g/dL 32.5-35.6 [facility] MCV Auto (RBC) [Entitic vol] Ordered By: Moses Boateng on 09-16-2023 MCV (RBC) [Entitic vol] 91.9 fL 83.5-101 [facility] Monocytes Auto (Bld) [#/Vol] Ordered By: Moses Boateng on 09-16-2023 Monocytes (Bld) [#/Vol] 0.8 10*3/uL 0.0-0.8 [facility] Monocytes/100 WBC Auto (Bld) Ordered By: Moses Boateng on 09-16-2023 Monocytes/100 WBC (Bld) 7.3 % . [facility] Neutrophils Auto (Bld) [#/Vo l]Ordered By: Moses Boateng on 09-16-2023 Neutrophils (Bld) [#/Vol] 8.4 10*3/uL 1.8-7.7 [facility] Neutrophils/100 WBC Auto (Bl d)Ordered By: Moses Boateng on 09-16-2023 Neutrophils/100 WBC (Bld) 74.1 % . [facility] No Panel InformationOrdered By: Moses Boateng on 09-16-2023 Estimated GFR (CKD-EPI) 5.286 mL/Min [facility] Creatinine Clearance (Chem 12.72 [facility] Nucleated erythrocytes [Pres ence] in Blood by Automated countOrdered By: Moses Boateng on 09-16-2023 Nucleated RBC Auto Ql (Bld) 0.0 /100{WBC} 0-0.5 [facility] Platelet mean volume Auto (B ld) [Entitic vol]Ordered By: Moses Boateng on 09-16-2023 Platelet mean volume (Bld) [Entitic vol] 8.0 fL 6.6-10.1 [facility] Platelets Auto (Bld) [#/Vol] Ordered By: Moses Boateng on 09-16-2023 Platelets (Bld) [#/Vol] 247 10*3/uL 150-450 [facility] Potassium [Moles/volume] in Serum or PlasmaOrdered By: Moses Boateng on 09-16-2023 Potassium [Moles/Vol] 4.3 mmol/L 3.5-5.1 [facility] RBC Auto (Bld) [#/Vol]Ordere d By: Moses Boateng on 09-16-2023 RBC (Bld) [#/Vol] 2.83 10*6/uL 3.90-5.60 [facility] Serum or plasma anion gap de terminationOrdered By: Moses Boateng on 09-16-2023 Anion gap [Moles/Vol] 17.8 mmol/L 6.0-15.0 [facility] Sodium [Moles/volume] in Ser um or PlasmaOrdered By: Moses Boateng on 09-16-2023 Sodium [Moles/Vol] 143 mmol/L 136-145 [facility] Urea nitrogen [Mass/volume] in Serum or PlasmaOrdered By: Moses Boateng on 09-16-2023 Urea nitrogen [Mass/Vol] 110 mg/dL 7-25 [facility] WBC Auto (Bld) [#/Vol]Ordere d By: Moses Boateng on 09-16-2023 WBC (Bld) [#/Vol] 11.3 10*3/uL 4.1-10.5 [facility] Alanine aminotransferase [En zymatic activity/volume] in Serum or PlasmaOrdered By: Michelle Kennedy on 06-26-2023 ALT [Catalytic activity/Vol] 16 U/L 7-52 [facility] Albumin [Mass/volume] in Ser um or Plasma by Bromocresol green (BCG) dye binding methoOrdered By: Michelle Kennedy on 06-26-2023 Albumin BCG dye [Mass/Vol] 3.8 g/dL 3.5-5.7 [facility] Alkaline phosphatase [Enzyma tic activity/volume] in Serum or PlasmaOrdered By: Michelle Kennedy on 06-26-2023 ALP [Catalytic activity/Vol] 63 U/L 34-104 [facility] Aspartate aminotransferase [ Enzymatic activity/volume] in Serum or PlasmaOrdered By: Michelle Kennedy on 06-26-2023 AST [Catalytic activity/Vol] 11 U/L 13-39 [facility] Bilirubin.total [Mass/volume ] in Serum or PlasmaOrdered By: Michelle Kennedy on 06-26-2023 Bilirubin [Mass/Vol] 0.3 mg/dL 0.3-1.0 [facility] Calcium [Mass/volume] in Ser um or PlasmaOrdered By: Michelle Kennedy on 06-26-2023 Calcium [Mass/Vol] 8.4 mg/dL 8.6-10.3 [facility] Carbon dioxide, total [Moles /volume] in Serum or PlasmaOrdered By: Michelle Kennedy on 06-26-2023 CO2 [Moles/Vol] 24.9 mmol/L 21.0-31.0 [facility] Chloride [Moles/volume] in S james or PlasmaOrdered By: Michelle Kennedy on 06-26-2023 Chloride [Moles/Vol] 107 mmol/L 98-107 [facility] Cholesterol [Mass/volume] in Serum or PlasmaOrdered By: Michelle Kennedy on 06-26-2023 Cholesterol [Mass/Vol] 143 mg/dL 140-200 [facility] Comment on above: Chol less than 200 m g/dl low riskChol 201-239 mg/dl borderline riskChol 240 mg/dl and greater high risk Cholesterol in LDL Calc [Mas s/Vol]Ordered By: Michelle Kennedy on 06-26-2023 Cholesterol in LDL [Mass/Vol] 72 mg/dL 0-100 [facility] Comment on above: LDL ATP III CLASSIFI CATIONLDL less than 100 mg/dL OptimalLDL 100-129 mg/dL Near or above optimalLDL 130-159 mg/dL Borderline highLDL 160-189 mg/dL HighLDL greater than 189 mg/dL Very high Cholesterol in VLDL Calc [Ma ss/Vol]Ordered By: Michelle Kennedy on 06-26-2023 Cholesterol in VLDL [Mass/Vol] 40 mg/dL [facility] Creatinine [Mass/volume] in Serum or PlasmaOrdered By: Michelle Kennedy on 06-26-2023 Creatinine [Mass/Vol] 8.14 mg/dL 0.70-1.30 [facility] Globulin Calc (S) [Mass/Vol] Ordered By: Michelle Kennedy on 06-26-2023 Globulin (S) [Mass/Vol] 3.2 g/dL [facility] Glucose [Mass/volume] in Ser um or PlasmaOrdered By: Michelle Kennedy on 06-26-2023 Glucose [Mass/Vol] 117 mg/dL 70-100 [facility] Comment on above: ADA recommended refe rence rangeRandom Glucose Reference Range is dependent on time and content of last meal. Glucose of more than 200 mg/dL in a nonstressed, ambulatory subject supports the diagnosis of Diabetes Mellitus. No Panel InformationOrdered By: Michelle Kennedy on 06-26-2023 C-Peptide 3.3 ng/mL 1.1-4.4 [facility] Comment on above: C-Peptide reference interval is for fasting patients.Performed at: [facility] [id number], [place] [id number] Director: Omar Frederick PhD, Phone: [phone] Estimated GFR (CKD-EPI) 7.315 mL/Min [facility] Creatinine Clearance (Chem N/A [facility] Potassium [Moles/volume] in Serum or PlasmaOrdered By: Tondra Mapus on 06-26-2023 Potassium [Moles/Vol] 4.0 mmol/L 3.5-5.1 [facility] Protein [Mass/volume] in Ser um or PlasmaOrdered By: Tondra Mapus on 06-26-2023 Protein [Mass/Vol] 7.0 g/dL 6.4-8.9 [facility] Serum or plasma albumin/glob ulin mass ratioOrdered By: Tondra Mapus on 06-26-2023 Albumin/Globulin [Mass ratio] 1.2 {ratio} [facility] Serum or plasma anion gap de terminationOrdered By: Tondra Mapus on 06-26-2023 Anion gap [Moles/Vol] 13.1 mmol/L 6.0-15.0 [facility] Serum or plasma high density lipoprotein (HDL) cholesterol measurementOrdered By: Tona Marcia on 06-26-2023 Cholesterol in HDL [Mass/Vol] 31 mg/dL 23-92 [facility] Comment on above: HDL CHOL ATP-III CLA SSIFICATION Cardiovascular RiskHDL > or equal to 60 mg/dL LOWHDL < 40 mg/dL HIGH Serum or plasma total choles terol/high density lipoprotein (HDL) cholesterol mass ratOrdered By: Tondra Mapus on 06-26-2023 Cholesterol.total/Chol esterol in HDL [Mass ratio] 4.6 {ratio} <5.0 [facility] Sodium [Moles/volume] in Ser um or PlasmaOrdered By: Tondra Mapus on 06-26-2023 Sodium [Moles/Vol] 141 mmol/L 136-145 [facility] Triglyceride [Mass/volume] i n Serum or PlasmaOrdered By: Tondra Mapus on 06-26-2023 Triglyceride [Mass/Vol] 200 mg/dL 0-149 [facility] Comment on above: TRIG ATP III CLASSIF ICATIONTRIG less than 150 mg/dL NormalTRIG 150-199 mg/dL Borderline highTRIG 200-500 mg/dL High TRIG greater than 500 mg/dL Very highStandard traceable to the Center for Disease Conrtrol and Prevention (CDC) test method. Urea nitrogen [Mass/volume] in Serum or PlasmaOrdered By: Michelle Kennedy on 06-26-2023 Urea nitrogen [Mass/Vol] 79 mg/dL 7-25 [facility] Albumin [Mass/volume] in Ser um or PlasmaOrdered By: Yocasta Villalba on 11-07-2022 Albumin [Mass/Vol] 2.9 g/dL 3.2-5.5 [facility] Basophils Auto (Bld) [#/Vol] Ordered By: Tyesha Brewster on 11-07-2022 Basophils (Bld) [#/Vol] 0.0 10*3/uL 0.0-0.2 [facility] Basophils/100 WBC Auto (Bld) Ordered By: Tyesha Brewster on 11-07-2022 Basophils/100 WBC (Bld) 0.1 % . [facility] Calcium [Mass/volume] in Ser um or PlasmaOrdered By: Yocasta Villalba on 11-07-2022 Calcium [Mass/Vol] 8.2 mg/dL 8.2-10.2 [facility] Carbon dioxide, total [Moles /volume] in Serum or PlasmaOrdered By: Yocasta Villalba on 11-07-2022 CO2 [Moles/Vol] 16.2 mmol/L 22.0-30.0 [facility] Chloride [Moles/volume] in S james or PlasmaOrdered By: Yocasta Villalba on 11-07-2022 Chloride [Moles/Vol] 109 mmol/L 95-114 [facility] Creatinine and Glomerular fi ltration rate.predicted panel (S/P/Bld)Ordered By: Yocasta Villalba on 11-07-2022 Creatinine [Mass/Vol] 6.66 mg/dL 0.64-1.27 [facility] Eosinophils Auto (Bld) [#/Vo l]Ordered By: Tyesha Brewster on 11-07-2022 Eosinophils (Bld) [#/Vol] 0.0 10*3/uL 0.0-0.45 [facility] Eosinophils/100 WBC Auto (Bl d)Ordered By: Tyesah Brewster on 11-07-2022 Eosinophils/100 WBC (Bld) 0.1 % . [facility] Erythrocyte distribution wid th Auto (RBC) [Ratio]Ordered By: Tyesha Brewster on 11-07-2022 Erythrocyte distribution width (RBC) [Ratio] 14.2 % 12.0-14.8 [facility] Estimated glomerular filtrat ion rate (GFR) non- AmericanOrdered By: Yocasta Villalba on 11-07-2022 GFR/1.73 sq M.predicted among non-blacks MDRD (S/P/Bld) [Vol rate/Area] 9 mL/Min [facility] Glucose Glucometer (BldC) [M ass/Vol]Ordered By: Tyesha Brewster on 11-07-2022 Glucose [Mass/Vol] 230 mg/dL [facility] Comment on above: Random Glucose Refer ence Range is dependent on time and content of last meal. Glucose of more than 200 mg/dL in a nonstressed, ambulatory subject supports the diagnosis of Diabetes Mellitus. Glucose [Mass/volume] in Ser um or PlasmaOrdered By: Yocasta Villalba on 11-07-2022 Glucose [Mass/Vol] 239 mg/dL 70-100 [facility] Comment on above: Delta: 340 on 7ADA recommended reference rangeRandom Glucose Reference Range is dependent on time and content of last meal. Glucose of more than 200 mg/dL in a nonstressed, ambulatory subject supports the diagnosis of Diabetes Mellitus. Hematocrit Auto (Bld) [Volum e fraction]Ordered By: Tyesha Brewster on 11-07-2022 Hematocrit (Bld) [Volume fraction] 27.0 % 38.8-50.0 [facility] Hemoglobin [Mass/volume] in BloodOrdered By: Tyesha Brewster on 11-07-2022 Hemoglobin (Bld) [Mass/Vol] 8.8 g/dL 13.0-17.0 [facility] Leukocytes [#/volume] correc scott for nucleated erythrocytes in Blood by Automated counOrdered By: Tyesha Brewster on 11-07-2022 WBC corrected for nucl RBC Auto (Bld) [#/Vol] 12.4 10*3/uL 4.1-10.5 [facility] Lymphocytes Auto (Bld) [#/Vo l]Ordered By: Tyesha Brewster on 11-07-2022 Lymphocytes (Bld) [#/Vol] 0.7 10*3/uL 1.00-4.8 [facility] Lymphocytes/100 WBC Auto (Bl d)Ordered By: Tyesha Brewster on 11-07-2022 Lymphocytes/100 WBC (Bld) 5.8 % . [facility] MCH Auto (RBC) [Entitic mass ]Ordered By: Tyesha Brewster on 11-07-2022 MCH (RBC) [Entitic mass] 29.7 pg 27.5-35.2 [facility] MCHC Auto (RBC) [Mass/Vol]Or dered By: Tyesha Brewster on 11-07-2022 MCHC (RBC) [Mass/Vol] 32.7 g/dL 32.5-35.6 [facility] MCV Auto (RBC) [Entitic vol] Ordered By: Tyesha Brewster on 11-07-2022 MCV (RBC) [Entitic vol] 90.8 fL 83.5-101 [facility] Monocytes Auto (Bld) [#/Vol] Ordered By: Tyesha Brewster on 11-07-2022 Monocytes (Bld) [#/Vol] 0.8 10*3/uL 0.0-0.8 [facility] Monocytes/100 WBC Auto (Bld) Ordered By: Tyesha Brewster on 11-07-2022 Monocytes/100 WBC (Bld) 6.5 % . [facility] Neutrophils Auto (Bld) [#/Vo l]Ordered By: Tyesha Brewster on 11-07-2022 Neutrophils (Bld) [#/Vol] 10.9 10*3/uL 1.8-7.7 [facility] Neutrophils/100 WBC Auto (Bl d)Ordered By: Tyesha Brewster on 11-07-2022 Neutrophils/100 WBC (Bld) 87.5 % . [facility] No Panel InformationOrdered By: Yocasta Villalba on 11-07-2022 Estimated GFR () 11 mL/Min [facility] Comment on above: GFR estimated refere nce range: According to KDOQI guidelines, <60 ml/min/1.73m2 is sufficient to diagnose a patient with chronic kidney disease. Pharmacy Creatinine Clearance (Chem 19.91 [facility] No Panel InformationOrdered By: Tyesha Brewster on 11-07-2022 Bedside Glucose Comment Glu2: cleaned meter [facility] Bedside Glucose #2 Comment Will repeat test [facility] Nucleated erythrocytes [Pres ence] in Blood by Automated countOrdered By: Tyesha Brewster on 11-07-2022 Nucleated RBC Auto Ql (Bld) 0.1 /100{WBC} 0-0.5 [facility] Phosphate [Mass/volume] in S james or PlasmaOrdered By: Yocasta Villalba on 11-07-2022 Phosphate [Mass/Vol] 4.2 mg/dL 2.5-4.6 [facility] Platelet mean volume Auto (B ld) [Entitic vol]Ordered By: Tyesha Brewster on 11-07-2022 Platelet mean volume (Bld) [Entitic vol] 7.1 fL 6.6-10.1 [facility] Platelets Auto (Bld) [#/Vol] Ordered By: Tyesha Brewster on 11-07-2022 Platelets (Bld) [#/Vol] 399 10*3/uL 150-450 [facility] Potassium [Moles/volume] in Serum or PlasmaOrdered By: oYcasta Villalba on 11-07-2022 Potassium [Moles/Vol] 4.4 mmol/L 3.5-5.1 [facility] Comment on above: *Additional results available. Contact laboratory/see report*Delta: 6.0 on 11/07/22 RBC Auto (Bld) [#/Vol]Ordere d By: Tyesha Brewster on 11-07-2022 RBC (Bld) [#/Vol] 2.97 10*6/uL 3.90-5.60 [facility] Serum or plasma anion gap de terminationOrdered By: Yocasta Villalba on 11-07-2022 Anion gap [Moles/Vol] 14.2 mmol/L 6.0-15.0 [facility] Sodium [Moles/volume] in Ser um or PlasmaOrdered By: Yocasta Villalba on 11-07-2022 Sodium [Moles/Vol] 135 mmol/L 136-146 [facility] Urea nitrogen [Mass/volume] in Serum or PlasmaOrdered By: Yocasta Villalba on 11-07-2022 Urea nitrogen [Mass/Vol] 73 mg/dL 9-23 [facility] WBC Auto (Bld) [#/Vol]Ordere d By: Tyesha Brewster on 11-07-2022 WBC (Bld) [#/Vol] 12.4 10*3/uL 4.1-10.[address] [facility] [address] biopsyOrdered By: Yocasta rockwell on 11-06-2022 Transferrin [Mass/Vol] 225 mg/dL 180-380 [facility] Ferritin [Mass/volume] in Se rum or PlasmaOrdered By: Yocasta Villalba on 11-06-2022 Ferritin [Mass/Vol] 363.1 ng/mL 23.9-336.2 [facility] Folate [Mass/volume] in Seru m or PlasmaOrdered By: Yocasta Villalba on 11-06-2022 Folate [Mass/Vol] 11.5 ng/mL >5.9 [facility] Comment on above: Folate reference ran ge: >5.9 ng/mlThe WHO technical consultation on folate and vitamin [id number] has determined that folate concentrations lessthan 4 ng/ml are considered deficient. Iron [Mass/volume] in Serum or PlasmaOrdered By: Yocasta Villalba on 11-06-2022 Iron [Mass/Vol] 38 ug/dL 40-160 [facility] Iron binding capacity [Mass/ volume] in Serum or PlasmaOrdered By: Yocasta Villalba on 11-06-2022 Iron binding capacity [Mass/Vol] 315 ug/dL 255-450 [facility] Iron saturation [Mass Fracti on] in Serum or PlasmaOrdered By: Yocasta Villalba on 11-06-2022 Iron saturation [Mass fraction] 12.1 % 20-50 [facility] COVID CepheidOrdered By: Joyce luis Ney on 11-05-2022 SARS-CoV-2 (COVID-19) Ab IA Ql Negative Negative [facility] Comment on above: This is a duplicate CepZenedyid Xpert Xpress CoV-2/Flu/RSV Plus RNA by RT-PCR result to be used for statistical tracking purpose only. SARS-CoV-2 (COVID-19) RNA SHAY+probe Ql (Unsp spec) [facility] SARS-CoV-2 (COVID-19) RNA SHAY+probe Ql (Unsp spec) [facility] Activated partial thrombopla stin time (aPTT) in platelet poor plasma by coagulation aOrdered By: Millie Burgos on 11-04-2022 aPTT Coag (PPP) [Time] 35.0 s 25.1-36.5 [facility] Albumin [Mass/volume] in Bod y fluidOrdered By: Delano Mondragon on 11-04-2022 Albumin (Body fld) [Mass/Vol] 3.3 g/dL 3.2-5.5 [facility] Alkaline phosphatase [Enzyma tic activity/volume] in Serum or PlasmaOrdered By: Delano Mondragon on 11-04-2022 ALP [Catalytic activity/Vol] 59 U/L 32-92 [facility] Aspartate aminotransferase [ Enzymatic activity/volume] in Serum or PlasmaOrdered By: Delano Mondragon on 11-04-2022 AST [Catalytic activity/Vol] 14 U/L 10-42 [facility] Automated erythrocytes count in urine sediment (number/area)Ordered By: Millie Burgos on 11-04-2022 RBC Auto (Urine sed) [#/Area] 3-4 [HPF] 0-4 [facility] Automated leukocytes count i n urine sediment (number/area)Ordered By: Millie Burgos on 11-04-2022 WBC Auto (Urine sed) [#/Area] 1-2 [HPF] 0-4 [facility] Basophils Auto (Bld) [#/Vol] Ordered By: Delano Mondragon on 11-04-2022 Basophils (Bld) [#/Vol] 0.1 10*3/uL 0.0-0.2 [facility] Basophils/100 WBC Auto (Bld) Ordered By: Delano Mondragon on 11-04-2022 Basophils/100 WBC (Bld) 1.1 % . [facility] Bilirubin Test strip Ql (U)O rdered By: Millie Burgos on 11-04-2022 Bilirubin Ql (U) Negative Negative [facility] Bilirubin.total [Mass/volume ] in Serum or PlasmaOrdered By: Delano Mondragon on 11-04-2022 Bilirubin [Mass/Vol] 0.3 mg/dL 0.3-1.2 [facility] Calcium [Mass/volume] in Ser um or PlasmaOrdered By: Delano Mondragon on 11-04-2022 Calcium [Mass/Vol] 8.9 mg/dL 8.2-10.2 [facility] Carbon dioxide, total [Moles /volume] in Serum or PlasmaOrdered By: Delano Mondragon on 11-04-2022 CO2 [Moles/Vol] 17.3 mmol/L 22.0-30.0 [facility] Chloride [Moles/volume] in S james or PlasmaOrdered By: Delano Mondragon on 11-04-2022 Chloride [Moles/Vol] 112 mmol/L 95-114 [facility] Color Auto (U)Ordered By: Jose M Burgos on 11-04-2022 Color (U) Yellow Yellow [facility] Creatinine and Glomerular fi ltration rate.predicted panel (S/P/Bld)Ordered By: Delano Mondragon on 11-04-2022 Creatinine [Mass/Vol] 5.77 mg/dL 0.64-1.27 [facility] Eosinophils Auto (Bld) [#/Vo l]Ordered By: Delano Mondragon on 11-04-2022 Eosinophils (Bld) [#/Vol] 0.3 10*3/uL 0.0-0.45 [facility] Eosinophils/100 WBC Auto (Bl d)Ordered By: Delano Mondragon on 11-04-2022 Eosinophils/100 WBC (Bld) 2.7 % . [facility] Erythrocyte distribution wid th Auto (RBC) [Ratio]Ordered By: Delano Mondragon on 11-04-2022 Erythrocyte distribution width (RBC) [Ratio] 14.5 % 12.0-14.8 [facility] Estimated glomerular filtrat ion rate (GFR) non- AmericanOrdered By: Delano Mondragon on 11-04-2022 GFR/1.73 sq M.predicted among non-blacks MDRD (S/P/Bld) [Vol rate/Area] 10 mL/Min [facility] Globulin Calc (S) [Mass/Vol] Ordered By: Delano Mondragon on 11-04-2022 Globulin (S) [Mass/Vol] 4.2 g/dL [facility] Glucose [Mass/volume] in Ser um or PlasmaOrdered By: Delano Mondragon on 11-04-2022 Glucose [Mass/Vol] 82 mg/dL 70-100 [facility] Comment on above: ADA recommended refe rence rangeRandom Glucose Reference Range is dependent on time and content of last meal. Glucose of more than 200 mg/dL in a nonstressed, ambulatory subject supports the diagnosis of Diabetes Mellitus. Hematocrit Auto (Bld) [Volum e fraction]Ordered By: Delano Mondragon on 11-04-2022 Hematocrit (Bld) [Volume fraction] 30.2 % 38.8-50.0 [facility] Hemoglobin [Mass/volume] in BloodOrdered By: Delano Mondragon on 11-04-2022 Hemoglobin (Bld) [Mass/Vol] 9.8 g/dL 13.0-17.0 [facility] Ketones Auto test strip (U) [Mass/Vol]Ordered By: Millie Burgos on 11-04-2022 Ketones (U) [Mass/Vol] Negative Negative [facility] Laboratory - Chemistry and C hemistry - challengeOrdered By: Millie Burgos on 11-04-2022 Magnesium [Mass/Vol] 1.6 mg/dL 1.6-2.6 [facility] Natriuretic peptide B (Bld) [Mass/Vol] 27.0 pg/mL 5-100 [facility] Laboratory - CoagulationOrde red By: Millie Burgos on 11-04-2022 PT Coag (PPP) [Time] 12.4 s 9.0-12.9 [facility] - UrinalysisOrder ed By: Millie Burgos on 11-04-2022 Hyaline casts LM Ql (Urine sed) 0-8 [LPF] 0-8 [facility] Leukocytes [#/volume] correc scott for nucleated erythrocytes in Blood by Automated counOrdered By: Delano Mondragon on 11-04-2022 WBC corrected for nucl RBC Auto (Bld) [#/Vol] 12.2 10*3/uL 4.1-10.5 [facility] Lymphocytes Auto (Bld) [#/Vo l]Ordered By: Delano Mondragon on 11-04-2022 Lymphocytes (Bld) [#/Vol] 1.5 10*3/uL 1.00-4.8 [facility] Lymphocytes/100 WBC Auto (Bl d)Ordered By: Delano Mondragon on 11-04-2022 Lymphocytes/100 WBC (Bld) 12.4 % . [facility] MCH Auto (RBC) [Entitic mass ]Ordered By: Delano Mondragon on 11-04-2022 MCH (RBC) [Entitic mass] 29.6 pg 27.5-35.2 [facility] MCHC Auto (RBC) [Mass/Vol]Or dered By: Delano Mondragon on 11-04-2022 MCHC (RBC) [Mass/Vol] 32.6 g/dL 32.5-35.6 [facility] MCV Auto (RBC) [Entitic vol] Ordered By: Delano Mondragon on 11-04-2022 MCV (RBC) [Entitic vol] 90.9 fL 83.5-101 [facility] Monocyte distribution width [Entitic volume] in Blood by AutomatedOrdered By: Delano Mondragon on 11-04-2022 Monocyte distribution width Auto (Bld) [Entitic vol] 17.32 % 0.00-20.00 [facility] Monocytes Auto (Bld) [#/Vol] Ordered By: Delano Mondragon on 11-04-2022 Monocytes (Bld) [#/Vol] 1.1 10*3/uL 0.0-0.8 [facility] Monocytes/100 WBC Auto (Bld) Ordered By: Delano Mondragon on 11-04-2022 Monocytes/100 WBC (Bld) 9.0 % . [facility] Neutrophils Auto (Bld) [#/Vo l]Ordered By: Delano Mondragon on 11-04-2022 Neutrophils (Bld) [#/Vol] 9.1 10*3/uL 1.8-7.7 [facility] Neutrophils/100 WBC Auto (Bl d)Ordered By: Delano Mondragon on 11-04-2022 Neutrophils/100 WBC (Bld) 74.8 % . [facility] Nitrite Test strip Ql (U)Ord ered By: Millie Burgos on 11-04-2022 Nitrite Ql (U) Negative Negative [facility] No Panel InformationOrdered By: Delano Mondragon on 11-04-2022 Estimated GFR () 13 mL/Min [facility] Comment on above: GFR estimated refere nce range: According to KDOQI guidelines, <60 ml/min/1.73m2 is sufficient to diagnose a patient with chronic kidney disease. Pharmacy Creatinine Clearance (Chem 22.99 [facility] Nucleated erythrocytes [Pres ence] in Blood by Automated countOrdered By: Delano Mondragon on 11-04-2022 Nucleated RBC Auto Ql (Bld) 0.0 /100{WBC} 0-0.5 [facility] Phosphate [Mass/volume] in S james or PlasmaOrdered By: Millie Burgos on 11-04-2022 Phosphate [Mass/Vol] 3.8 mg/dL 2.5-4.6 [facility] Platelet mean volume Auto (B ld) [Entitic vol]Ordered By: Delano Mondragon on 11-04-2022 Platelet mean volume (Bld) [Entitic vol] 6.7 fL 6.6-10.1 [facility] Platelet poor plasma interna tional normalized ratio (INR) by coagulation assay (relatOrdered By: Millie Burgos on 11-04-2022 INR Coag (PPP) [Relative time] 1.1 {INR} [facility] Comment on above: INR Therapeutic Rang [...] 11-04-2022 Platelets (Bld) [#/Vol] 418 10*3/uL 150-450 [facility] Potassium [Moles/volume] in Serum or PlasmaOrdered By: Delano Mondragon on 11-04-2022 Potassium [Moles/Vol] 5.3 mmol/L 3.5-5.1 [facility] Protein Auto test strip (U) [Mass/Vol]Ordered By: Millie Burgos on 11-04-2022 Protein (U) [Mass/Vol] 300 mg/dL Negative [facility] Protein [Mass/volume] in Ser um or PlasmaOrdered By: Delano Mondragon on 11-04-2022 Protein [Mass/Vol] 7.5 g/dL 6.1-7.9 [facility] RBC Auto (Bld) [#/Vol]Ordere d By: Delnao Mondragon on 11-04-2022 RBC (Bld) [#/Vol] 3.32 10*6/uL 3.90-5.60 [facility] Serum or plasma alanine lawson otransferase measurement without P-5'-P (enzymatic activiOrdered By: Delano Mondragon on 11-04-2022 ALT No additional P-5'-P [Catalytic activity/Vol] 23 U/L 10-60 [facility] Serum or plasma albumin/glob ulin mass ratioOrdered By: Delano Mondragon on 11-04-2022 Albumin/Globulin [Mass ratio] 0.8 {ratio} [facility] Serum or plasma anion gap de terminationOrdered By: Delano Mondragon on 11-04-2022 Anion gap [Moles/Vol] 14.0 mmol/L 6.0-15.0 [facility] Sodium [Moles/volume] in Ser um or PlasmaOrdered By: Delano Mondragon on 11-04-2022 Sodium [Moles/Vol] 138 mmol/L 136-146 [facility] Specific gravity Auto test s trip (U) [Rel density]Ordered By: Millie Burgos on 11-04-2022 Specific gravity (U) [Rel density] 1.013 1.001-1.030 [facility] Squamous epithelial cells de tection in urine sediment by light microscopyOrdered By: Millie Burgos on 03-01-2023 Epithelial cells.squamous LM Ql (Urine sed) 0-1 [HPF] 0-2 [facility] Troponin I.cardiac [Mass/vol ume] in Serum or Plasma by High sensitivity methodOrdered By: Millie Burgos on 11-04-2022 Troponin I.cardiac High sensitivity method [Mass/Vol] 10 pg/mL 0-20 [facility] Urea nitrogen [Mass/volume] in Serum or PlasmaOrdered By: Delano Mondragon on 11-04-2022 Urea nitrogen [Mass/Vol] 52 mg/dL 9-23 [facility] Urine bacteria detection by automated methodOrdered By: Millie Burgos on 11-04-2022 Bacteria Auto Ql (U) None seen None Seen [facility] Urine clarity by refractomet ry automatedOrdered By: Millie Burgos on 11-04-2022 Clarity Refractometry automated (U) Clear Clear [facility] Urine glucose measurement by automated test strip (mass/volume)Ordered By: Millie Burgos on 11-04-2022 Glucose Auto test strip (U) [Mass/Vol] 100 mg/dL Normal [facility] Urine hemoglobin detection b y automated test stripOrdered By: Millie Burgos on 11-04-2022 Hemoglobin Auto test strip Ql (U) 1+ Negative [facility] Urine leukocyte esterase det ection by automated test stripOrdered By: Millie Burgos on 11-04-2022 Leukocyte esterase Auto test strip Ql (U) Negative Negative [facility] Urobilinogen Auto test strip (U) [Mass/Vol]Ordered By: Millie Burgos on 11-04-2022 Urobilinogen (U) [Mass/Vol] Normal mg/dL Normal [facility] WBC Auto (Bld) [#/Vol]Ordere d By: Delano Mondragon on 11-04-2022 WBC (Bld) [#/Vol] 12.2 10*3/uL 4.1-10.5 [facility] pH Auto test strip (U)Ordere d By: Millie Burgos on 11-04-2022 pH (U) 5.5 [pH] 5.0-9.0 [facility] Albumin [Mass/volume] in Ser um or PlasmaOrdered By: Ada Uriostegui on 11-02-2022 Albumin [Mass/Vol] 3.3 g/dL 3.2-5.5 [facility] Automated erythrocytes count in urine sediment (number/area)Ordered By: Ada Uriostegui on 11-02-2022 RBC Auto (Urine sed) [#/Area] 1-2 [HPF] 0-4 [facility] Automated leukocytes count i n urine sediment (number/area)Ordered By: Ada Uriostegui on 11-02-2022 WBC Auto (Urine sed) [#/Area] 0-1 [HPF] 0-4 [facility] Bilirubin Test strip Ql (U)O rdered By: Ada Uriostegui on 11-02-2022 Bilirubin Ql (U) Negative Negative [facility] CT biopsyOrdered By: Jonathan christensen on 11-02-2022 Transferrin [Mass/Vol] 270 mg/dL 180-380 [facility] Calcium [Mass/volume] in Ser um or PlasmaOrdered By: Ada Uriostegui on 11-02-2022 Calcium [Mass/Vol] 8.3 mg/dL 8.2-10.2 [facility] Carbon dioxide, total [Moles /volume] in Serum or PlasmaOrdered By: Ada Uriostegui on 11-02-2022 CO2 [Moles/Vol] 18.0 mmol/L 22.0-30.0 [facility] Chloride [Moles/volume] in S james or PlasmaOrdered By: Ada Uriostegui on 11-02-2022 Chloride [Moles/Vol] 112 mmol/L 95-114 [facility] Color Auto (U)Ordered By: Ab akhil Uriostegui on 11-02-2022 Color (U) Yellow Yellow [facility] Creatinine and Glomerular fi ltration rate.predicted panel (S/P/Bld)Ordered By: Ada Uriostegui on 11-02-2022 Creatinine [Mass/Vol] 5.16 mg/dL 0.64-1.27 [facility] Comment on above: Delta: 5.79 on 11/01 Erythrocyte distribution wid th Auto (RBC) [Ratio]Ordered By: Ada Uriostegui on 11-02-2022 Erythrocyte distribution width (RBC) [Ratio] 14.4 % 12.0-14.8 [facility] Estimated glomerular filtrat ion rate (GFR) non- AmericanOrdered By: Ada Uriostegui on 11-02-2022 GFR/1.73 sq M.predicted among non-blacks MDRD (S/P/Bld) [Vol rate/Area] 12 mL/Min [facility] Ferritin [Mass/volume] in Se rum or PlasmaOrdered By: Ada Uriostegui on 11-02-2022 Ferritin [Mass/Vol] 434.0 ng/mL 23.9-336.2 [facility] Glucose [Mass/volume] in Ser um or PlasmaOrdered By: Ada Uriostegui on 11-02-2022 Glucose [Mass/Vol] 165 mg/dL 70-100 [facility] Comment on above: ADA recommended refe rence rangeRandom Glucose Reference Range is dependent on time and content of last meal. Glucose of more than 200 mg/dL in a nonstressed, ambulatory subject supports the diagnosis of Diabetes Mellitus. Hematocrit Auto (Bld) [Volum e fraction]Ordered By: Ada Uriostegui on 11-02-2022 Hematocrit (Bld) [Volume fraction] 30.1 % 38.8-50.0 [facility] Hemoglobin [Mass/volume] in BloodOrdered By: Ada Uriostegui on 11-02-2022 Hemoglobin (Bld) [Mass/Vol] 9.8 g/dL 13.0-17.0 [facility] Iron [Mass/volume] in Serum or PlasmaOrdered By: Ada Uriostegui on 11-02-2022 Iron [Mass/Vol] 41 ug/dL 40-160 [facility] Iron binding capacity [Mass/ volume] in Serum or PlasmaOrdered By: Ada Uriostegui on 11-02-2022 Iron binding capacity [Mass/Vol] 378 ug/dL 255-450 [facility] Iron saturation [Mass Fracti on] in Serum or PlasmaOrdered By: Ada Uriostegui on 11-02-2022 Iron saturation [Mass fraction] 10.8 % 20-50 [facility] Ketones Auto test strip (U) [Mass/Vol]Ordered By: Ada Uriostegui on 11-02-2022 Ketones (U) [Mass/Vol] Negative Negative [facility] - Chemistry and C hemistry - challengeOrdered By: Ada Uriostegui on 11-02-2022 Magnesium [Mass/Vol] 1.7 mg/dL 1.6-2.6 [facility] - UrinalysisOrder ed By: Ada Uriostegui on 11-02-2022 Hyaline casts LM Ql (Urine sed) None seen [LPF] 0-8 [facility] Leukocytes [#/volume] correc scott for nucleated erythrocytes in Blood by Automated counOrdered By: Ada Uriostegui on 11-02-2022 WBC corrected for nucl RBC Auto (Bld) [#/Vol] 10.9 10*3/uL 4.1-10.5 [facility] MCH Auto (RBC) [Entitic mass ]Ordered By: Ada Uriostegui on 11-02-2022 MCH (RBC) [Entitic mass] 29.8 pg 27.5-35.2 [facility] MCHC Auto (RBC) [Mass/Vol]Or dered By: Ada Uriostegui on 11-02-2022 MCHC (RBC) [Mass/Vol] 32.5 g/dL 32.5-35.6 [facility] MCV Auto (RBC) [Entitic vol] Ordered By: Ada Uriostegui on 11-02-2022 MCV (RBC) [Entitic vol] 91.5 fL 83.5-101 [facility] Nitrite Test strip Ql (U)Ord ered By: Ada Uriostegui on 11-02-2022 Nitrite Ql (U) Negative Negative [facility] No Panel InformationOrdered By: Ada Uriostegui on 11-02-2022 25-Hydroxy Vitamin D Total 12.4 ng/mL 30-100 [facility] Comment on above: VITAMIN D STATUS 25( [place])VITAMIN D RANGE (ng/mL) Deficient <20 Insufficient 20 to <30Sufficient 30 to 100Reference: Sophy MF,Glendy NC, Nitin RAMOS, et al. Evaluation,treatment, and prevention of vitamin D deficiency; an Endocrine Society clinical practice guideline. JCEM. 2010; 96(7):1911-30. Estimated GFR () 14 mL/Min [facility] Comment on above: GFR estimated refere nce range: According to KDOQI guidelines, <60 ml/min/1.73m2 is sufficient to diagnose a patient with chronic kidney disease. Pharmacy Creatinine Clearance (Chem N/A [facility] Parathyrin.intact [Mass/volu me] in Serum or PlasmaOrdered By: Ada Uriostegui on 11-02-2022 Parathyrin.intact [Mass/Vol] 204.7 pg/mL 12 [facility] Phosphate [Mass/volume] in S james or PlasmaOrdered By: Ada Uriostegui on 11-02-2022 Phosphate [Mass/Vol] 3.9 mg/dL 2.5-4.6 [facility] Platelet mean volume Auto (B ld) [Entitic vol]Ordered By: Ada Uriostegui on 11-02-2022 Platelet mean volume (Bld) [Entitic vol] 7.0 fL 6.6-10.1 [facility] Platelets Auto (Bld) [#/Vol] Ordered By: Ada Uriostegui on 11-02-2022 Platelets (Bld) [#/Vol] 323 10*3/uL 150-450 [facility] Potassium [Moles/volume] in Serum or PlasmaOrdered By: Ada Uriostegui on 11-02-2022 Potassium [Moles/Vol] 5.9 mmol/L 3.5-5.1 [facility] Protein Auto test strip (U) [Mass/Vol]Ordered By: Ada Uriostegui on 11-02-2022 Protein (U) [Mass/Vol] 300 mg/dL Negative [facility] RBC Auto (Bld) [#/Vol]Ordere d By: Ada Uriostegui on 11-02-2022 RBC (Bld) [#/Vol] 3.29 10*6/uL 3.90-5.60 [facility] Serum or plasma anion gap de terminationOrdered By: Ada Uriostegui on 11-02-2022 Anion gap [Moles/Vol] 12.9 mmol/L 6.0-15.0 [facility] Sodium [Moles/volume] in Ser um or PlasmaOrdered By: Ada Uriostegui on 11-02-2022 Sodium [Moles/Vol] 137 mmol/L 136-146 [facility] Specific gravity Auto test s trip (U) [Rel density]Ordered By: Ada Uriostegui on 11-02-2022 Specific gravity (U) [Rel density] 1.011 1.001-1.030 [facility] Squamous epithelial cells de tection in urine sediment by light microscopyOrdered By: Ada Uriostegui on 11-02-2022 Epithelial cells.squamous LM Ql (Urine sed) None seen [HPF] 0-2 [facility] Urate [Mass/volume] in Serum or PlasmaOrdered By: Ada Uriostegui on 11-02-2022 Urate [Mass/Vol] 5.3 mg/dL 2.6-7.2 [facility] Urea nitrogen [Mass/volume] in Serum or PlasmaOrdered By: Ada Uriostegui on 11-02-2022 Urea nitrogen [Mass/Vol] 58 mg/dL 9-23 [facility] Urine bacteria detection by automated methodOrdered By: Ada Uriostegui on 11-02-2022 Bacteria Auto Ql (U) None seen None Seen [facility] Urine clarity by refractomet ry automatedOrdered By: Ada Uriostegui on 11-02-2022 Clarity Refractometry automated (U) Clear Clear [facility] Urine glucose measurement by automated test strip (mass/volume)Ordered By: Ada Uriostegui on 11-02-2022 Glucose Auto test strip (U) [Mass/Vol] 250 mg/dL Normal [facility] Urine hemoglobin detection b y automated test stripOrdered By: Ada Uriostegui on 11-02-2022 Hemoglobin Auto test strip Ql (U) 1+ Negative [facility] Urine leukocyte esterase det ection by automated test stripOrdered By: Ada Uriostegui on 11-02-2022 Leukocyte esterase Auto test strip Ql (U) Negative Negative [facility] Urobilinogen Auto test strip (U) [Mass/Vol]Ordered By: Ada Uriostegui on 11-02-2022 Urobilinogen (U) [Mass/Vol] Normal mg/dL Normal [facility] pH Auto test strip (U)Ordere d By: Ada Uriostegui on 11-02-2022 pH (U) 5.5 [pH] 5.0-9.0 [facility] Activated partial thrombopla stin time (aPTT) in platelet poor plasma by coagulation aOrdered By: Mary Hill on 11-01-2022 aPTT Coag (PPP) [Time] 34.7 s 25.1-36.5 [facility] Alkaline phosphatase [Enzyma tic activity/volume] in Serum or PlasmaOrdered By: Mary Hill on 11-01-2022 ALP [Catalytic activity/Vol] 48 U/L 32-92 [facility] Aspartate aminotransferase [ Enzymatic activity/volume] in Serum or PlasmaOrdered By: Mary Hill on 11-01-2022 AST [Catalytic activity/Vol] 22 U/L 10-42 [facility] Basophils Auto (Bld) [#/Vol] Ordered By: Mary Hill on 11-01-2022 Basophils (Bld) [#/Vol] 0.1 10*3/uL 0.0-0.2 [facility] Basophils/100 WBC Auto (Bld) Ordered By: Mary Hill on 11-01-2022 Basophils/100 WBC (Bld) 0.5 % . [facility] Bilirubin.total [Mass/volume ] in Serum or PlasmaOrdered By: Mary Hill on 11-01-2022 Bilirubin [Mass/Vol] 0.4 mg/dL 0.3-1.2 [facility] Body fluid albumin measureme nt (mass/volume)Ordered By: Mary Hill on 11-01-2022 Albumin (Body fld) [Mass/Vol] 3.4 g/dL 3.2-5.5 [facility] Calcium [Mass/volume] in Ser um or PlasmaOrdered By: Mary Hill on 11-01-2022 Calcium [Mass/Vol] 8.6 mg/dL 8.2-10.2 [facility] Carbon dioxide, total [Moles /volume] in Serum or PlasmaOrdered By: Mary Hill on 11-01-2022 CO2 [Moles/Vol] 16.4 mmol/L 22.0-30.0 [facility] Chloride [Moles/volume] in S james or PlasmaOrdered By: Mary Hill on 11-01-2022 Chloride [Moles/Vol] 109 mmol/L 95-114 [facility] Creatinine and Glomerular fi ltration rate.predicted panel (S/P/Bld)Ordered By: Mary Hill on 11-01-2022 Creatinine [Mass/Vol] 5.79 mg/dL 0.64-1.27 [facility] Eosinophils Auto (Bld) [#/Vo l]Ordered By: Mary Hill on 11-01-2022 Eosinophils (Bld) [#/Vol] 0.3 10*3/uL 0.0-0.45 [facility] Eosinophils/100 WBC Auto (Bl d)Ordered By: Mary Hill on 11-01-2022 Eosinophils/100 WBC (Bld) 2.8 % . [facility] Erythrocyte distribution wid th Auto (RBC) [Ratio]Ordered By: Mary Hill on 11-01-2022 Erythrocyte distribution width (RBC) [Ratio] 14.9 % 12.0-14.8 [facility] Estimated glomerular filtrat ion rate (GFR) non- AmericanOrdered By: Mary Hill on 11-01-2022 GFR/1.73 sq M.predicted among non-blacks MDRD (S/P/Bld) [Vol rate/Area] 10 mL/Min [facility] Fecal occult blood detection by immunochemistryOrdered By: Mary Hill on 11-01-2022 Hemoglobin.gastrointes tinal Ql (Stl) [facility] Hemoglobin.gastrointes tinal Ql (Stl) [facility] Globulin Calc (S) [Mass/Vol] Ordered By: Mary Hill on 11-01-2022 Globulin (S) [Mass/Vol] 4.0 g/dL [facility] Glucose Glucometer (BldC) [M ass/Vol]Ordered By: Mary Hill on 11-01-2022 Glucose [Mass/Vol] 55 mg/dL [facility] Comment on above: Random Glucose Refer ence Range is dependent on time and content of last meal. Glucose of more than 200 mg/dL in a nonstressed, ambulatory subject supports the diagnosis of Diabetes Mellitus. Glucose [Mass/volume] in Ser um or PlasmaOrdered By: Mary Hill on 11-01-2022 Glucose [Mass/Vol] 80 mg/dL 70-100 [facility] Comment on above: ADA recommended refe rence rangeRandom Glucose Reference Range is dependent on time and content of last meal. Glucose of more than 200 mg/dL in a nonstressed, ambulatory subject supports the diagnosis of Diabetes Mellitus. Hematocrit Auto (Bld) [Volum e fraction]Ordered By: Mary Hill on 11-01-2022 Hematocrit (Bld) [Volume fraction] 29.9 % 38.8-50.0 [facility] Hemoglobin [Mass/volume] in BloodOrdered By: Mary Hill on 11-01-2022 Hemoglobin (Bld) [Mass/Vol] 9.8 g/dL 13.0-17.0 [facility] Laboratory - Chemistry and C hemistry - challengeOrdered By: Mary Hill on 11-01-2022 Natriuretic peptide B (Bld) [Mass/Vol] 32.0 pg/mL 5-100 [facility] Laboratory - CoagulationOrde red By: Mary Hill on 11-01-2022 PT Coag (PPP) [Time] 12.3 s 9.0-12.9 [facility] Leukocytes [#/volume] correc scott for nucleated erythrocytes in Blood by Automated counOrdered By: Mary Hill on 11-01-2022 WBC corrected for nucl RBC Auto (Bld) [#/Vol] 12.0 10*3/uL 4.1-10.5 [facility] Lymphocytes Auto (Bld) [#/Vo l]Ordered By: Mary Hill on 11-01-2022 Lymphocytes (Bld) [#/Vol] 1.7 10*3/uL 1.00-4.8 [facility] Lymphocytes/100 WBC Auto (Bl d)Ordered By: Mary Hill on 11-01-2022 Lymphocytes/100 WBC (Bld) 14.6 % . [facility] MCH Auto (RBC) [Entitic mass ]Ordered By: Mary Hill on 11-01-2022 MCH (RBC) [Entitic mass] 29.6 pg 27.5-35.2 [facility] MCHC Auto (RBC) [Mass/Vol]Or dered By: Mary Hill on 11-01-2022 MCHC (RBC) [Mass/Vol] 32.7 g/dL 32.5-35.6 [facility] MCV Auto (RBC) [Entitic vol] Ordered By: Mary Hill on 11-01-2022 MCV (RBC) [Entitic vol] 90.6 fL 83.5-101 [facility] Monocyte %Ordered By: Jacki Hill on 11-01-2022 Monocyte % 23 umol/L 11-35 [facility] Monocyte distribution width [Entitic volume] in Blood by AutomatedOrdered By: Mary Hill on 11-01-2022 Monocyte distribution width Auto (Bld) [Entitic vol] 14.78 % 0.00-20.00 [facility] Monocytes Auto (Bld) [#/Vol] Ordered By: Mary Hill on 11-01-2022 Monocytes (Bld) [#/Vol] 1.1 10*3/uL 0.0-0.8 [facility] Monocytes/100 WBC Auto (Bld) Ordered By: Mary Hill on 11-01-2022 Monocytes/100 WBC (Bld) 9.6 % . [facility] Neutrophils Auto (Bld) [#/Vo l]Ordered By: Mary Hill on 11-01-2022 Neutrophils (Bld) [#/Vol] 8.7 10*3/uL 1.8-7.7 [facility] Neutrophils/100 WBC Auto (Bl d)Ordered By: Mary Hill on 11-01-2022 Neutrophils/100 WBC (Bld) 72.5 % . [facility] No Panel InformationOrdered By: Mary Hill on 11-01-2022 Bedside Glucose Comment See comment [facility] Comment on above: Glu2: WILL NOTIFY DR /RN Estimated GFR () 13 mL/Min [facility] Comment on above: GFR estimated refere nce range: According to KDOQI guidelines, <60 ml/min/1.73m2 is sufficient to diagnose a patient with chronic kidney disease. Pharmacy Creatinine Clearance (Chem 23.31 [facility] Nucleated erythrocytes [Pres ence] in Blood by Automated countOrdered By: Mary Hill on 11-01-2022 Nucleated RBC Auto Ql (Bld) 0.1 /100{WBC} 0-0.5 [facility] Platelet mean volume Auto (B ld) [Entitic vol]Ordered By: Mary Hill on 11-01-2022 Platelet mean volume (Bld) [Entitic vol] 7.0 fL 6.6-10.1 [facility] Platelet poor plasma interna tional normalized ratio (INR) by coagulation assay (relatOrdered By: Mary Hill on 11-01-2022 INR Coag (PPP) [Relative time] 1.1 {INR} [facility] Comment on above: INR Therapeutic Rang [...] 11-01-2022 Platelets (Bld) [#/Vol] 347 10*3/uL 150-450 [facility] Potassium [Moles/volume] in Serum or PlasmaOrdered By: Mary Hill on 11-01-2022 Potassium [Moles/Vol] 4.9 mmol/L 3.5-5.1 [facility] Protein [Mass/volume] in Ser um or PlasmaOrdered By: Mary Hill on 11-01-2022 Protein [Mass/Vol] 7.4 g/dL 6.1-7.9 [facility] RBC Auto (Bld) [#/Vol]Ordere d By: Mary Hill on 02-26-2023 RBC (Bld) [#/Vol] 3.30 10*6/uL 3.90-5.60 [facility] Serum or plasma alanine lawson otransferase measurement without P-5'-P (enzymatic activiOrdered By: Mary Hill on 11-01-2022 ALT No additional P-5'-P [Catalytic activity/Vol] 28 U/L 10-60 [facility] Serum or plasma albumin/glob ulin mass ratioOrdered By: Mary Hill on 11-01-2022 Albumin/Globulin [Mass ratio] 0.9 {ratio} [facility] Serum or plasma anion gap de terminationOrdered By: Mary Hill on 11-01-2022 Anion gap [Moles/Vol] 17.5 mmol/L 6.0-15.0 [facility] Sodium [Moles/volume] in Ser um or PlasmaOrdered By: Mary Hill on 11-01-2022 Sodium [Moles/Vol] 138 mmol/L 136-146 [facility] Troponin I.cardiac [Mass/vol ume] in Serum or Plasma by High sensitivity methodOrdered By: Mary Hill on 11-01-2022 Troponin I.cardiac High sensitivity method [Mass/Vol] 7 pg/mL 0-20 [facility] Urea nitrogen [Mass/volume] in Serum or PlasmaOrdered By: Mary Hill on 11-01-2022 Urea nitrogen [Mass/Vol] 59 mg/dL 9-23 [facility] WBC Auto (Bld) [#/Vol]Ordere d By: Mary Hill on 11-01-2022 WBC (Bld) [#/Vol] 12.0 10*3/uL 4.1-10.5 [facility] VL Extremity Venous Duplex L ower [...] called to Shirley at Dr. Francois 12:35pm. Crime Laboratory Analyst: Rea Tristan, RVT Radiologist Report Bilateral lower [...] Electronically Signed in Other Vendor System) Normal [facility] Albumin [Mass/volume] in Ser um or PlasmaOrdered By: Yolie Noe on 09-23-2022 Albumin [Mass/Vol] 3.3 g/dL 3.2-5.5 [facility] Basophils Auto (Bld) [#/Vol] Ordered By: Yolie Noe on 09-23-2022 Basophils (Bld) [#/Vol] 0.1 10*3/uL 0.0-0.2 [facility] Basophils/100 WBC Auto (Bld) Ordered By: Yolie Noe on 09-23-2022 Basophils/100 WBC (Bld) 0.8 % . [facility] Creatinine and Glomerular fi ltration rate.predicted panel (S/P/Bld)Ordered By: Yolie Noe on 09-23-2022 Creatinine [Mass/Vol] 5.82 mg/dL 0.64-1.27 [facility] Eosinophils Auto (Bld) [#/Vo l]Ordered By: Yolie Noe on 09-23-2022 Eosinophils (Bld) [#/Vol] 0.3 10*3/uL 0.0-0.45 [facility] Eosinophils/100 WBC Auto (Bl d)Ordered By: Yolie Noe on 09-23-2022 Eosinophils/100 WBC (Bld) 2.6 % . [facility] Erythrocyte distribution wid th Auto (RBC) [Ratio]Ordered By: Yolie Noe on 09-23-2022 Erythrocyte distribution width (RBC) [Ratio] 14.0 % 12.0-14.8 [facility] Estimated glomerular filtrat ion rate (GFR) non- AmericanOrdered By: Yolie Noe on 09-23-2022 GFR/1.73 sq M.predicted among non-blacks MDRD (S/P/Bld) [Vol rate/Area] 10 mL/Min [facility] Globulin Calc (S) [Mass/Vol] Ordered By: Yolie Noe on 09-23-2022 Globulin (S) [Mass/Vol] 3.6 g/dL [facility] Glucose Glucometer (BldC) [M ass/Vol]Ordered By: SIVTLANA VILLANUEVA on 09-23-2022 Glucose [Mass/Vol] 151 mg/dL [facility] Comment on above: Random Glucose Refer ence Range is dependent on time and content of last meal. Glucose of more than 200 mg/dL in a nonstressed, ambulatory subject supports the diagnosis of Diabetes Mellitus. Hematocrit Auto (Bld) [Volum e fraction]Ordered By: Yolie Noe on 09-23-2022 Hematocrit (Bld) [Volume fraction] 33.0 % 38.8-50.0 [facility] Hemoglobin [Mass/volume] in BloodOrdered By: Yolie Noe on 09-23-2022 Hemoglobin (Bld) [Mass/Vol] 11.1 g/dL 13.0-17.0 [facility] Leukocytes [#/volume] correc scott for nucleated erythrocytes in Blood by Automated counOrdered By: Yolie Newmangosia on 09-23-2022 WBC corrected for nucl RBC Auto (Bld) [#/Vol] 9.9 10*3/uL 4.1-10.5 [facility] Lymphocytes Auto (Bld) [#/Vo l]Ordered By: Yolie Hasmukh on 09-23-2022 Lymphocytes (Bld) [#/Vol] 2.7 10*3/uL 1.00-4.8 [facility] Lymphocytes/100 WBC Auto (Bl d)Ordered By: Yolie Noe on 09-23-2022 Lymphocytes/100 WBC (Bld) 27.6 % . [facility] MCH Auto (RBC) [Entitic mass ]Ordered By: Yoile Noe on 09-23-2022 MCH (RBC) [Entitic mass] 29.5 pg 27.5-35.2 [facility] MCHC Auto (RBC) [Mass/Vol]Or dered By: Yolie Hasmukh on 09-23-2022 MCHC (RBC) [Mass/Vol] 33.5 g/dL 32.5-35.6 [facility] MCV Auto (RBC) [Entitic vol] Ordered By: Yolie Hasmukh on 09-23-2022 MCV (RBC) [Entitic vol] 88.2 fL 83.5-101 [facility] Monocyte distribution width [Entitic volume] in Blood by AutomatedOrdered By: Yoliemarie Noe on 09-23-2022 Monocyte distribution width Auto (Bld) [Entitic vol] 16.48 % 0.00-20.00 [facility] Monocytes Auto (Bld) [#/Vol] Ordered By: Yolie Noe on 09-23-2022 Monocytes (Bld) [#/Vol] 0.9 10*3/uL 0.0-0.8 [facility] Monocytes/100 WBC Auto (Bld) Ordered By: Yolie Noe on 09-23-2022 Monocytes/100 WBC (Bld) 8.8 % . [facility] Neutrophils Auto (Bld) [#/Vo l]Ordered By: Yolie Noe on 09-23-2022 Neutrophils (Bld) [#/Vol] 5.9 10*3/uL 1.8-7.7 [facility] Neutrophils/100 WBC Auto (Bl d)Ordered By: Yolie Noe on 09-23-2022 Neutrophils/100 WBC (Bld) 60.2 % . [facility] No Panel InformationOrdered By: Yolie Noe on 09-23-2022 Estimated GFR () 12 mL/Min [facility] Comment on above: GFR estimated refere nce range: According to KDOQI guidelines, <60 ml/min/1.73m2 is sufficient to diagnose a patient with chronic kidney disease. Pharmacy Creatinine Clearance (Chem 22.77 [facility] Nucleated erythrocytes [Pres ence] in Blood by Automated countOrdered By: Yolie Noe on 09-23-2022 Nucleated RBC Auto Ql (Bld) 0.1 /100{WBC} 0-0.5 [facility] Platelet mean volume Auto (B ld) [Entitic vol]Ordered By: Yolie Noe on 09-23-2022 Platelet mean volume (Bld) [Entitic vol] 7.0 fL 6.6-10.1 [facility] Platelets Auto (Bld) [#/Vol] Ordered By: Yolie Noe on 09-23-2022 Platelets (Bld) [#/Vol] 420 10*3/uL 150-450 [facility] Protein [Mass/volume] in Ser um or PlasmaOrdered By: Yolie Noe on 09-23-2022 Protein [Mass/Vol] 6.9 g/dL 6.1-7.9 [facility] RBC Auto (Bld) [#/Vol]Ordere d By: Yolie Noe on 09-23-2022 RBC (Bld) [#/Vol] 3.74 10*6/uL 3.90-5.60 [facility] Serum or plasma alanine lawson otransferase measurement without P-5'-P (enzymatic activiOrdered By: Yolie Noe on 09-23-2022 ALT No additional P-5'-P [Catalytic activity/Vol] 19 U/L 10-60 [facility] Serum or plasma albumin/glob ulin mass ratioOrdered By: Yolie Noe on 09-23-2022 Albumin/Globulin [Mass ratio] 0.9 {ratio} [facility] Serum or plasma alkaline elliot sphatase measurement (enzymatic activity/volume)Ordered By: Yolie Noe on 09-23-2022 ALP [Catalytic activity/Vol] 61 U/L 32-92 [facility] Serum or plasma anion gap de terminationOrdered By: Yolie Noe on 09-23-2022 Anion gap [Moles/Vol] 14.3 mmol/L 6.0-15.0 [facility] Serum or plasma aspartate am inotransferase measurement (enzymatic activity/volume)Ordered By: Yolie Noe on 09-23-2022 AST [Catalytic activity/Vol] 15 U/L 10-42 [facility] Serum or plasma calcium shante urement (mass/volume)Ordered By: Yolie Noe on 09-23-2022 Calcium [Mass/Vol] 8.6 mg/dL 8.2-10.2 [facility] Serum or plasma chloride alber surement (moles/volume)Ordered By: Yolie Noe on 09-23-2022 Chloride [Moles/Vol] 107 mmol/L 95-114 [facility] Serum or plasma glucose shante urement (mass/volume)Ordered By: Yolie Noe on 09-23-2022 Glucose [Mass/Vol] 150 mg/dL 70-100 [facility] Comment on above: ADA recommended refe rence rangeRandom Glucose Reference Range is dependent on time and content of last meal. Glucose of more than 200 mg/dL in a nonstressed, ambulatory subject supports the diagnosis of Diabetes Mellitus. Serum or plasma potassium me asurement (moles/volume)Ordered By: Yolie Noe on 09-23-2022 Potassium [Moles/Vol] 4.0 mmol/L 3.5-5.1 [facility] Serum or plasma sodium measu rement (moles/volume)Ordered By: Yolie Noe on 09-23-2022 Sodium [Moles/Vol] 139 mmol/L 136-146 [facility] Serum or plasma total biliru bin measurement (mass/volume)Ordered By: Yolie Trentgosia on 09-23-2022 Bilirubin [Mass/Vol] 0.3 mg/dL 0.3-1.2 [facility] Serum or plasma total carbon dioxide measurement (moles/volume)Ordered By: Yolie Noe on 09-23-2022 CO2 [Moles/Vol] 21.7 mmol/L 22.0-30.0 [facility] Serum or plasma urea nitroge n measurement (mass/volume)Ordered By: Yolie Noe on 09-23-2022 Urea nitrogen [Mass/Vol] 70 mg/dL 05-29 [facility] WBC Auto (Bld) [#/Vol]Ordere d By: Yolie Noe on 09-23-2022 WBC (Bld) [#/Vol] 9.9 10*3/uL 4.1-10.5 [facility] Albumin [Mass/volume] in Ser um or PlasmaOrdered By: Ada Uriostegui on 08-03-2022 Albumin [Mass/Vol] 3.4 g/dL 3.2-5.[address] [facility] [address] biopsyOrdered By: Jonathan christensen on 08-03-2022 Transferrin [Mass/Vol] 270 mg/dL 180-380 [facility] Creatinine and Glomerular fi ltration rate.predicted panel (S/P/Bld)Ordered By: Ada Uriostegui on 08-03-2022 Creatinine [Mass/Vol] 4.98 mg/dL 0.64-1.27 [facility] Erythrocyte distribution wid th Auto (RBC) [Ratio]Ordered By: Ada Uriostegui on 08-03-2022 Erythrocyte distribution width (RBC) [Ratio] 14.4 % 12.0-14.8 [facility] Estimated glomerular filtrat ion rate (GFR) non- AmericanOrdered By: Ada Uriostegui on 08-03-2022 GFR/1.73 sq M.predicted among non-blacks MDRD (S/P/Bld) [Vol rate/Area] 12 mL/Min [facility] Ferritin [Mass/volume] in Se rum or PlasmaOrdered By: Ada Uriostegui on 08-03-2022 Ferritin [Mass/Vol] 331.3 ng/mL 23.9-336.2 [facility] Hematocrit Auto (Bld) [Volum e fraction]Ordered By: Ada Uriostegui on 08-03-2022 Hematocrit (Bld) [Volume fraction] 31.6 % 38.8-50.0 [facility] Hemoglobin [Mass/volume] in BloodOrdered By: Ada Moody on 08-03-2022 Hemoglobin (Bld) [Mass/Vol] 10.3 g/dL 13.0-17.0 [facility] Iron [Mass/volume] in Serum or PlasmaOrdered By: Ada Moody on 08-03-2022 Iron [Mass/Vol] 90 ug/dL 40-160 [facility] Iron binding capacity [Mass/ volume] in Serum or PlasmaOrdered By: Ada Moody on 08-03-2022 Iron binding capacity [Mass/Vol] 378 ug/dL 255-450 [facility] Iron saturation [Mass Fracti on] in Serum or PlasmaOrdered By: Ada Uriostegui on 08-03-2022 Iron saturation [Mass fraction] 23.0 % 20-50 [facility] MCH Auto (RBC) [Entitic mass ]Ordered By: Ada Whelanr on 08-03-2022 MCH (RBC) [Entitic mass] 29.2 pg 27.5-35.2 [facility] MCHC Auto (RBC) [Mass/Vol]Or dered By: Ada Moody on 08-03-2022 MCHC (RBC) [Mass/Vol] 32.6 g/dL 32.5-35.6 [facility] MCV Auto (RBC) [Entitic vol] Ordered By: Ada Moody on 08-03-2022 MCV (RBC) [Entitic vol] 89.7 fL 83.5-101 [facility] No Panel InformationOrdered By: Ada Uriostegui on 08-03-2022 25-Hydroxy Vitamin D Total 14.6 ng/mL 30-100 [facility] Comment on above: VITAMIN D STATUS 25( [place])VITAMIN D RANGE (ng/mL) Deficient <20 Insufficient 20 to <30Sufficient 30 to 100Reference: Sophy MF,Glendy BARTH, Nitin RAMOS, et al. Evaluation,treatment, and prevention of vitamin D deficiency; an Endocrine Society clinical practice guideline. JCEM. 2010; 96(7):1911-30. Estimated GFR () 15 mL/Min [facility] Comment on above: GFR estimated refere nce range: According to KDOQI guidelines, <60 ml/min/1.73m2 is sufficient to diagnose a patient with chronic kidney disease. Pharmacy Creatinine Clearance (Chem N/A [facility] Phosphate [Mass/volume] in S james or PlasmaOrdered By: Ada Uriostegui on 08-03-2022 Phosphate [Mass/Vol] 3.1 mg/dL 2.5-4.6 [facility] Platelet mean volume Auto (B ld) [Entitic vol]Ordered By: Ada Uriostegui on 08-03-2022 Platelet mean volume (Bld) [Entitic vol] 7.2 fL 6.6-10.1 [facility] Platelets Auto (Bld) [#/Vol] Ordered By: Ada Uriostegui on 08-03-2022 Platelets (Bld) [#/Vol] 390 10*3/uL 150-450 [facility] RBC Auto (Bld) [#/Vol]Ordere d By: Ada Whelanr on 08-03-2022 RBC (Bld) [#/Vol] 3.52 10*6/uL 3.90-5.60 [facility] Serum or plasma anion gap de terminationOrdered By: Ada Uriostegui on 08-03-2022 Anion gap [Moles/Vol] 14.6 mmol/L 6.0-15.0 [facility] Serum or plasma calcium shante urement (mass/volume)Ordered By: Ada Moody on 08-03-2022 Calcium [Mass/Vol] 9.0 mg/dL 8.2-10.2 [facility] Serum or plasma chloride alber surement (moles/volume)Ordered By: Ada Uriostegui on 08-03-2022 Chloride [Moles/Vol] 105 mmol/L 95-114 [facility] Serum or plasma glucose shante urement (mass/volume)Ordered By: Ada Uriostegui on 08-03-2022 Glucose [Mass/Vol] 188 mg/dL 70-100 [facility] Comment on above: ADA recommended refe rence rangeRandom Glucose Reference Range is dependent on time and content of last meal. Glucose of more than 200 mg/dL in a nonstressed, ambulatory subject supports the diagnosis of Diabetes Mellitus. Serum or plasma intact parat hyroid hormone measurement (mass/volume)Ordered By: Ada Uriostegui on 08-03-2022 Parathyrin.intact [Mass/Vol] 151.8 pg/mL [facility] Serum or plasma potassium me asurement (moles/volume)Ordered By: Ada Urisotegui on 08-03-2022 Potassium [Moles/Vol] 5.1 mmol/L 3.5-5.1 [facility] Serum or plasma sodium measu rement (moles/volume)Ordered By: Ada Uriostegui on 08-03-2022 Sodium [Moles/Vol] 139 mmol/L 136-146 [facility] Serum or plasma total carbon dioxide measurement (moles/volume)Ordered By: Ada Uriostegui on 08-03-2022 CO2 [Moles/Vol] 24.5 mmol/L 22.0-30.0 [facility] Serum or plasma urea nitroge n measurement (mass/volume)Ordered By: Ada Uriostegui on 08-03-2022 Urea nitrogen [Mass/Vol] 60 mg/dL 05-29 [facility] Serum or plasma uric acid me asurement (mass/volume)Ordered By: Ada Uriostegui on 08-03-2022 Urate [Mass/Vol] 5.6 mg/dL 2.6-7.2 [facility] WBC Auto (Bld) [#/Vol]Ordere d By: Ada Uriostegui on 08-03-2022 WBC (Bld) [#/Vol] 9.5 10*3/uL 4.1-10.5 [facility] Basophils Auto (Bld) [#/Vol] Ordered By: Yosef Castillo on 07-29-2022 Basophils (Bld) [#/Vol] 0.1 10*3/uL 0.0-0.2 [facility] Basophils/100 WBC Auto (Bld) Ordered By: Yosef Castillo on 07-29-2022 Basophils/100 WBC (Bld) 0.9 % . [facility] Beta-hydroxybutyric acid alber surementOrdered By: Yosef Castillo on 07-29-2022 Beta hydroxybutyrate [Mass/Vol] 0.25 mmol/L 0.05-0.27 [facility] Body fluid albumin measureme nt (mass/volume)Ordered By: Yosef Castillo on 07-29-2022 Albumin (Body fld) [Mass/Vol] 3.6 g/dL 3.2-5.5 [facility] Creatinine and Glomerular fi ltration rate.predicted panel (S/P/Bld)Ordered By: Yosef Castillo on 07-29-2022 Creatinine [Mass/Vol] 5.97 mg/dL 0.64-1.27 [facility] Eosinophils Auto (Bld) [#/Vo l]Ordered By: Yosef Castillo on 07-29-2022 Eosinophils (Bld) [#/Vol] 0.3 10*3/uL 0.0-0.45 [facility] Eosinophils/100 WBC Auto (Bl d)Ordered By: Yosef Castillo on 07-29-2022 Eosinophils/100 WBC (Bld) 2.9 % . [facility] Erythrocyte distribution wid th Auto (RBC) [Ratio]Ordered By: Yosef Castillo on 07-29-2022 Erythrocyte distribution width (RBC) [Ratio] 14.1 % 12.0-14.8 [facility] Estimated glomerular filtrat ion rate (GFR) non- AmericanOrdered By: Yosef Castillo on 07-29-2022 GFR/1.73 sq M.predicted among non-blacks MDRD (S/P/Bld) [Vol rate/Area] 10 mL/Min [facility] Globulin Calc (S) [Mass/Vol] Ordered By: Yosef Castillo on 07-29-2022 Globulin (S) [Mass/Vol] 3.3 g/dL [facility] Glucose Glucometer (BldC) [M ass/Vol]Ordered By: Yosef Castillo on 07-29-2022 Glucose [Mass/Vol] 266 mg/dL [facility] Comment on above: Random Glucose Refer ence Range is dependent on time and content of last meal. Glucose of more than 200 mg/dL in a nonstressed, ambulatory subject supports the diagnosis of Diabetes Mellitus. Hematocrit Auto (Bld) [Volum e fraction]Ordered By: Yosef Castillo on 07-29-2022 Hematocrit (Bld) [Volume fraction] 32.7 % 38.8-50.0 [facility] Hemoglobin [Mass/volume] in BloodOrdered By: Yosef Castillo on 07-29-2022 Hemoglobin (Bld) [Mass/Vol] 10.8 g/dL 13.0-17.0 [facility] Laboratory - Chemistry and C hemistry - challengeOrdered By: Yosef Castillo on 07-29-2022 CO2 [Moles/Vol] 22.9 mmol/L 24.0-29.0 [facility] HCO3 (Bld) [Moles/Vol] 21.7 mmol/L 23.0-29.0 [facility] Lipase [Catalytic activity/Vol] 38.0 U/L 22-51 [facility] Laboratory - Hematology and Cell countsOrdered By: Yosef Castillo on 07-29-2022 Nucleated RBC/100 WBC (Bld) [Ratio] 0.0 % 0-0.5 [facility] Leukocytes [#/volume] in Blo od by Automated countOrdered By: Yosef Castillo on 07-29-2022 WBC (Bld) [#/Vol] 11.0 10*3/uL 4.5-11.0 [facility] Lymphocytes Auto (Bld) [#/Vo l]Ordered By: Yosef Castillo on 07-29-2022 Lymphocytes (Bld) [#/Vol] 2.0 10*3/uL 1.00-4.8 [facility] Lymphocytes/100 WBC Auto (Bl d)Ordered By: Yosef Castillo on 07-29-2022 Lymphocytes/100 WBC (Bld) 17.9 % . [facility] MCH Auto (RBC) [Entitic mass ]Ordered By: Yosef Castillo on 07-29-2022 MCH (RBC) [Entitic mass] 29.4 pg 27.5-35.2 [facility] MCHC Auto (RBC) [Mass/Vol]Or dered By: Yosef Castillo on 07-29-2022 MCHC (RBC) [Mass/Vol] 33.0 g/dL 32.5-35.6 [facility] MCV Auto (RBC) [Entitic vol] Ordered By: Yosef Castillo on 07-29-2022 MCV (RBC) [Entitic vol] 88.8 fL 83.5-101 [facility] Monocytes Auto (Bld) [#/Vol] Ordered By: Yosef Castillo on 07-29-2022 Monocytes (Bld) [#/Vol] 0.7 10*3/uL 0.0-0.8 [facility] Monocytes/100 WBC Auto (Bld) Ordered By: Yosef Castillo on 07-29-2022 Monocytes/100 WBC (Bld) 5.9 % . [facility] Neutrophils Auto (Bld) [#/Vo l]Ordered By: Yosef Castillo on 07-29-2022 Neutrophils (Bld) [#/Vol] 8.0 10*3/uL 1.8-7.7 [facility] Neutrophils/100 WBC Auto (Bl d)Ordered By: Yosef Castillo on 07-29-2022 Neutrophils/100 WBC (Bld) 72.4 % . [facility] No Panel InformationOrdered By: Yosef Castillo on 07-29-2022 Blood Gas Critical Value See comment [facility] Comment on above: Critical Value metz d on: 07/29/2022 at 00:48 Blood Gas Sample Site Venous [facility] FiO2 21 % [facility] Venous Blood Base Excess -3.7 mmol/L -3.0-3.0 [facility] Venous Blood Oxygen Content 5.6 mmol/L 6.6-9.7 [facility] Venous Blood Oxygen Saturation 79.1 % 73.0-76.0 [facility] Venous Blood Partial Pressure CO2 40.4 mm[Hg] 38.0-50.0 [facility] Venous Blood Partial Pressure O2 41.6 mm[Hg] 35.0-45.0 [facility] Venous Blood pH 7.35 7.32-7.43 [facility] Estimated GFR () 12 mL/Min [facility] Comment on above: GFR estimated refere nce range: According to KDOQI guidelines, <60 ml/min/1.73m2 is sufficient to diagnose a patient with chronic kidney disease. Pharmacy Creatinine Clearance (Chem 21.83 [facility] Platelet mean volume Auto (B ld) [Entitic vol]Ordered By: Yosef Castillo on 07-29-2022 Platelet mean volume (Bld) [Entitic vol] 7.6 fL 6.6-10.1 [facility] Platelets Auto (Bld) [#/Vol] Ordered By: Yosef Castillo on 07-29-2022 Platelets (Bld) [#/Vol] 382 10*3/uL 150-450 [facility] Protein [Mass/volume] in Ser um or PlasmaOrdered By: Yosef Castillo on 07-29-2022 Protein [Mass/Vol] 6.9 g/dL 6.1-7.9 [facility] RBC Auto (Bld) [#/Vol]Ordere d By: Yosef Castillo on 07-29-2022 RBC (Bld) [#/Vol] 3.68 10*6/uL 3.90-5.60 [facility] Serum or plasma alanine lawson otransferase measurement without P-5'-P (enzymatic activiOrdered By: Yosef Castillo on 07-29-2022 ALT No additional P-5'-P [Catalytic activity/Vol] 17 U/L 10-60 [facility] Serum or plasma albumin/glob ulin mass ratioOrdered By: Yosef Castillo on 07-29-2022 Albumin/Globulin [Mass ratio] 1.1 {ratio} [facility] Serum or plasma alkaline elliot sphatase measurement (enzymatic activity/volume)Ordered By: Yosef Castillo on 07-29-2022 ALP [Catalytic activity/Vol] 52 U/L 32-92 [facility] Serum or plasma anion gap de terminationOrdered By: Yosef Castillo on 07-29-2022 Anion gap [Moles/Vol] TNP [facility] Comment on above: Test not performed Serum or plasma aspartate am inotransferase measurement (enzymatic activity/volume)Ordered By: Yosef Castillo on 07-29-2022 AST [Catalytic activity/Vol] 26 U/L 10-42 [facility] Serum or plasma calcium shante urement (mass/volume)Ordered By: Yosfe Castillo on 07-29-2022 Calcium [Mass/Vol] 8.9 mg/dL 8.2-10.2 [facility] Serum or plasma chloride alber surement (moles/volume)Ordered By: Yosef Castillo on 07-29-2022 Chloride [Moles/Vol] 105 mmol/L 95-114 [facility] Serum or plasma glucose shante urement (mass/volume)Ordered By: Yosef Castillo on 07-29-2022 Glucose [Mass/Vol] 233 mg/dL 70-100 [facility] Comment on above: ADA recommended refe rence rangeRandom Glucose Reference Range is dependent on time and content of last meal. Glucose of more than 200 mg/dL in a nonstressed, ambulatory subject supports the diagnosis of Diabetes Mellitus. Serum or plasma potassium me asurement (moles/volume)Ordered By: Yosef Castillo on 07-29-2022 Potassium [Moles/Vol] 4.4 mmol/L 3.5-5.1 [facility] Serum or plasma sodium measu rement (moles/volume)Ordered By: Yosef Castillo on 07-29-2022 Sodium [Moles/Vol] 142 mmol/L 136-146 [facility] Serum or plasma total biliru bin measurement (mass/volume)Ordered By: Yosef Castillo on 07-29-2022 Bilirubin [Mass/Vol] 0.7 mg/dL 0.3-1.2 [facility] Serum or plasma total carbon dioxide measurement (moles/volume)Ordered By: Yosef Castillo on 07-29-2022 CO2 [Moles/Vol] 21.9 mmol/L 22.0-30.0 [facility] Serum or plasma urea nitroge n measurement (mass/volume)Ordered By: Yosef Castillo on 07-29-2022 Urea nitrogen [Mass/Vol] 74 mg/dL - [facility] TSH DL <= 0.005 mIU/L QnOrde red By: Yosef Castillo on 07-29-2022 TSH Qn 2.69 m[IU]/L 0.45-5.33 [facility] Thyroxine (T4) free [Mass/vo lume] in Serum or PlasmaOrdered By: Yosef Castillo on 07-29-2022 Free T4 [Mass/Vol] 0.78 ng/dL 0.61-1.12 [facility] Troponin I.cardiac [Mass/vol ume] in Serum or Plasma by High sensitivity methodOrdered By: Yosef Castillo on 07-29-2022 Troponin I.cardiac High sensitivity method [Mass/Vol] 7 pg/mL 0-20 [facility] C [place] 07-20-2022 C Wound --- [...] <=1 V Vancomycin S 1 V Normal [facility] Comment on above: Performed By: #### W TRAVIS #### [facility] (DEFAULT) [address] [place] [address] [facility] [address] [place] [address] No Panel Informationon 07-17 Body mass index (BMI) [Percentile] Per age and sex 0.1 {percentile} Invalid Interpretation Code Familio [id number] Per age and sex 0.1 {percentile} Invalid Interpretation Code Familio Body fluid albumin measureme nt (mass/volume)Ordered By: Ada Uriostegui on 06-27-2022 Albumin (Body fld) [Mass/Vol] 3.6 g/dL 3.2-5.[address] [facility] [address] biopsyOrdered By: Jonathan christensen on 06-27-2022 Transferrin [Mass/Vol] 286 mg/dL 180-380 [facility] Creatinine and Glomerular fi ltration rate.predicted panel (S/P/Bld)Ordered By: Ada Uriostegui on 06-27-2022 Creatinine [Mass/Vol] 4.86 mg/dL 0.64-1.27 [facility] Erythrocyte distribution wid th Auto (RBC) [Ratio]Ordered By: Ada Uriostegui on 06-27-2022 Erythrocyte distribution width (RBC) [Ratio] 14.0 % 12.0-14.8 [facility] Estimated glomerular filtrat ion rate (GFR) non- AmericanOrdered By: Ada Uriostegui on 06-27-2022 GFR/1.73 sq M.predicted among non-blacks MDRD (S/P/Bld) [Vol rate/Area] 13 mL/Min [facility] Ferritin [Mass/volume] in Se rum or PlasmaOrdered By: Ada Uriostegui on 06-27-2022 Ferritin [Mass/Vol] 383.6 ng/mL 23.9-336.2 [facility] Hematocrit Auto (Bld) [Volum e fraction]Ordered By: Ada Uriostegui on 06-27-2022 Hematocrit (Bld) [Volume fraction] 37.2 % 38.8-50.0 [facility] Hemoglobin [Mass/volume] in BloodOrdered By: Ada Uriostegui on 06-27-2022 Hemoglobin (Bld) [Mass/Vol] 12.1 g/dL 13.0-17.0 [facility] Iron [Mass/volume] in Serum or PlasmaOrdered By: Ada Uriostegui on 06-27-2022 Iron [Mass/Vol] 70 ug/dL 40-160 [facility] Iron binding capacity [Mass/ volume] in Serum or PlasmaOrdered By: Ada Moody on 06-27-2022 Iron binding capacity [Mass/Vol] 400 ug/dL 255-450 [facility] Iron saturation [Mass Fracti on] in Serum or PlasmaOrdered By: Ada Uriostegui on 06-27-2022 Iron saturation [Mass fraction] 17.0 % 20-50 [facility] Laboratory - Chemistry and C hemistry - challengeOrdered By: Ada Uriostegui on 06-27-2022 Magnesium [Mass/Vol] 1.9 mg/dL 1.6-2.6 [facility] MCH Auto (RBC) [Entitic mass ]Ordered By: Ada Uriostegui on 06-27-2022 MCH (RBC) [Entitic mass] 29.2 pg 27.5-35.2 [facility] MCHC Auto (RBC) [Mass/Vol]Or dered By: Ada Uriostegui on 06-27-2022 MCHC (RBC) [Mass/Vol] 32.6 g/dL 32.5-35.6 [facility] MCV Auto (RBC) [Entitic vol] Ordered By: Ada Uriostegui on 06-27-2022 MCV (RBC) [Entitic vol] 89.7 fL 83.5-101 [facility] No Panel InformationOrdered By: Ada Uriostegui on 06-27-2022 25-Hydroxy Vitamin D Total 13.3 ng/mL 30-100 [facility] Comment on above: VITAMIN D STATUS 25( [place])VITAMIN D RANGE (ng/mL) Deficient <20 Insufficient 20 to <30Sufficient 30 to 100Reference: Sophy ROMAN,Glendy BARTH, Nitin RAMOS, et al. Evaluation,treatment, and prevention of vitamin D deficiency; an Endocrine Society clinical practice guideline. JCEM. 2010; 96(7):1911-30. Estimated GFR () 15 mL/Min [facility] Comment on above: GFR estimated refere nce range: According to KDOQI guidelines, <60 ml/min/1.73m2 is sufficient to diagnose a patient with chronic kidney disease. Pharmacy Creatinine Clearance (Chem N/A [facility] Phosphate [Mass/volume] in S james or PlasmaOrdered By: Ada Uriostegui on 06-27-2022 Phosphate [Mass/Vol] 4.1 mg/dL 2.5-4.6 [facility] Platelet mean volume Auto (B ld) [Entitic vol]Ordered By: Ada Uriostegui on 06-27-2022 Platelet mean volume (Bld) [Entitic vol] 7.3 fL 6.6-10.1 [facility] Platelets Auto (Bld) [#/Vol] Ordered By: Ada Uriostegui on 06-27-2022 Platelets (Bld) [#/Vol] 454 10*3/uL 150-450 [facility] RBC Auto (Bld) [#/Vol]Ordere d By: Ada Uriostegui on 06-27-2022 RBC (Bld) [#/Vol] 4.15 10*6/uL 3.90-5.60 [facility] Serum or plasma anion gap de terminationOrdered By: Ada Uriostegui on 06-27-2022 Anion gap [Moles/Vol] 15.2 mmol/L 6.0-15.0 [facility] Serum or plasma calcium shante urement (mass/volume)Ordered By: Ada Uriostegui on 06-27-2022 Calcium [Mass/Vol] 8.9 mg/dL 8.2-10.2 [facility] Serum or plasma chloride alber surement (moles/volume)Ordered By: Ada Uriostegui on 06-27-2022 Chloride [Moles/Vol] 103 mmol/L 95-114 [facility] Serum or plasma glucose shante urement (mass/volume)Ordered By: Ada Uriostegui on 06-27-2022 Glucose [Mass/Vol] 115 mg/dL 70-100 [facility] Comment on above: ADA recommended refe rence rangeRandom Glucose Reference Range is dependent on time and content of last meal. Glucose of more than 200 mg/dL in a nonstressed, ambulatory subject supports the diagnosis of Diabetes Mellitus. Serum or plasma intact parat hyroid hormone measurement (mass/volume)Ordered By: Ada Uriostegui on 06-27-2022 Parathyrin.intact [Mass/Vol] 168.5 pg/mL [facility] Serum or plasma potassium me asurement (moles/volume)Ordered By: Ada Uriostegui on 06-27-2022 Potassium [Moles/Vol] 4.6 mmol/L 3.5-5.1 [facility] Serum or plasma sodium measu rement (moles/volume)Ordered By: Ada Uriostegui on 06-27-2022 Sodium [Moles/Vol] 137 mmol/L 136-146 [facility] Serum or plasma total carbon dioxide measurement (moles/volume)Ordered By: Ada Uriostegui on 06-27-2022 CO2 [Moles/Vol] 23.4 mmol/L 22.0-30.0 [facility] Serum or plasma urea nitroge n measurement (mass/volume)Ordered By: Ada Uriostegui on 06-27-2022 Urea nitrogen [Mass/Vol] 52 mg/dL 05-29 [facility] WBC Auto (Bld) [#/Vol]Ordere d By: Ada Uriostegui on 06-27-2022 WBC (Bld) [#/Vol] 9.4 10*3/uL 4.1-10.5 [facility] SARS-CoV-2 (COVID-19) RNA SHAY+probe Ql (Unsp spec) Not detected Normal NOT DETECTED [facility] Comment on above: Result Comment: This test is not yet approved or cleared by the [place] FDA. When there are no FDA-approved or cleared tests available, and other criteria are met, FDA can make tests available under an emergency access mechanism called an Emergency Use Authorization (EUA). The EUA for this test is supported by the [place] of Health and Human Service's (HHS's) declaration [...] consistent with SARS-CoV-2. Performed By: #### [facility] #### [facility] [address] [place] [address] Dr. Monroe Winn Blood hemoglobin measurement (mass/volume)Ordered By: Ada Uriostegui on 05-16-2022 Hemoglobin (Bld) [Mass/Vol] 11.2 g/dL 13.0-17.0 [facility] Body fluid albumin measureme nt (mass/volume)Ordered By: Ada Uriostegui on 05-16-2022 Albumin (Body fld) [Mass/Vol] 3.5 g/dL 3.2-5.[address] [facility] [address] biopsyOrdered By: Jonathan christensen on 05-16-2022 Transferrin [Mass/Vol] 300 mg/dL 180-380 [facility] Creatinine and Glomerular fi ltration rate.predicted panel (S/P/Bld)Ordered By: Ada Uriostegui on 05-16-2022 Creatinine [Mass/Vol] 5.05 mg/dL 0.64-1.27 [facility] Erythrocyte distribution wid th Auto (RBC) [Ratio]Ordered By: Ada Uriostegui on 05-16-2022 Erythrocyte distribution width (RBC) [Ratio] 13.7 % 12.0-14.8 [facility] Estimated glomerular filtrat ion rate (GFR) non- AmericanOrdered By: Ada Uriostegui on 05-16-2022 GFR/1.73 sq M.predicted among non-blacks MDRD (S/P/Bld) [Vol rate/Area] 12 mL/Min [facility] Ferritin [Mass/volume] in Se rum or PlasmaOrdered By: Ada Uriostegui on 05-16-2022 Ferritin [Mass/Vol] 447.8 ng/mL 23.9-336.2 [facility] Hematocrit Auto (Bld) [Volum e fraction]Ordered By: Ada Uriostegui on 05-16-2022 Hematocrit (Bld) [Volume fraction] 33.5 % 38.8-50.0 [facility] Iron [Mass/volume] in Serum or PlasmaOrdered By: Ada Uriostegui on 05-16-2022 Iron [Mass/Vol] 73 ug/dL 40-160 [facility] Iron binding capacity [Mass/ volume] in Serum or PlasmaOrdered By: Ada Uriostegui on 05-16-2022 Iron binding capacity [Mass/Vol] 420 ug/dL 255-450 [facility] Iron saturation [Mass Fracti on] in Serum or PlasmaOrdered By: Ada Uriostegui on 05-16-2022 Iron saturation [Mass fraction] 17.0 % 20-50 [facility] Laboratory - Chemistry and C hemistry - challengeOrdered By: Ada Uriostegui on 05-16-2022 Magnesium [Mass/Vol] 2.0 mg/dL 1.6-2.6 [facility] MCH Auto (RBC) [Entitic mass ]Ordered By: Ada Uriostegui on 05-16-2022 MCH (RBC) [Entitic mass] 29.8 pg 27.5-35.2 [facility] MCHC Auto (RBC) [Mass/Vol]Or dered By: Ada Uriostegui on 05-16-2022 MCHC (RBC) [Mass/Vol] 33.4 g/dL 32.5-35.6 [facility] MCV Auto (RBC) [Entitic vol] Ordered By: Ada Uriostegui on 05-16-2022 MCV (RBC) [Entitic vol] 89.1 fL 83.5-101 [facility] No Panel InformationOrdered By: Ada Uriostegui on 05-16-2022 25-Hydroxy Vitamin D Total 13.9 ng/mL 30-100 [facility] Comment on above: VITAMIN D STATUS [...] 2010; 96(7):1911-30. Estimated GFR () 15 mL/Min [facility] Comment on above: GFR estimated refere nce range: According to KDOQI guidelines, <60 ml/min/1.73m2 is sufficient to diagnose a patient with chronic kidney disease. Pharmacy Creatinine Clearance (Chem N/A [facility] Phosphate [Mass/volume] in S james or PlasmaOrdered By: Ada Uriostegui on 05-16-2022 Phosphate [Mass/Vol] 3.9 mg/dL 2.5-4.6 [facility] Platelet mean volume Auto (B ld) [Entitic vol]Ordered By: Ada Uriostegui on 05-16-2022 Platelet mean volume (Bld) [Entitic vol] 6.9 fL 6.6-10.1 [facility] Platelets Auto (Bld) [#/Vol] Ordered By: Ada Uriostegui on 05-16-2022 Platelets (Bld) [#/Vol] 496 10*3/uL 150-450 [facility] RBC Auto (Bld) [#/Vol]Ordere d By: Ada Uriostegui on 05-16-2022 RBC (Bld) [#/Vol] 3.76 10*6/uL 3.90-5.60 [facility] Serum or plasma anion gap de terminationOrdered By: Ada Uriostegui on 05-16-2022 Anion gap [Moles/Vol] 13.7 mmol/L 6.0-15.0 [facility] Serum or plasma calcium shante urement (mass/volume)Ordered By: Ada Uriostegui on 05-16-2022 Calcium [Mass/Vol] 9.2 mg/dL 8.2-10.2 [facility] Serum or plasma chloride alber surement (moles/volume)Ordered By: Ada Uriostegui on 05-16-2022 Chloride [Moles/Vol] 105 mmol/L 95-114 [facility] Serum or plasma glucose shante urement (mass/volume)Ordered By: Ada Uriostegui on 05-16-2022 Glucose [Mass/Vol] 177 mg/dL 70-100 [facility] Comment on above: ADA recommended refe rence [...] Uriostegui on 05-16-2022 Parathyrin.intact [Mass/Vol] 121.3 pg/mL [facility] Serum or plasma potassium me asurement (moles/volume)Ordered By: Ada Uriostegui on 05-16-2022 Potassium [Moles/Vol] 4.9 mmol/L 3.5-5.1 [facility] Serum or plasma sodium measu rement (moles/volume)Ordered By: Ada Uriostegui on 05-16-2022 Sodium [Moles/Vol] 137 mmol/L 136-146 [facility] Serum or plasma total carbon dioxide measurement (moles/volume)Ordered By: Ada Uriostegui on 05-16-2022 CO2 [Moles/Vol] 23.2 mmol/L 22.0-30.0 [facility] Serum or plasma urea nitroge n measurement (mass/volume)Ordered By: Ada Uriostegui on 05-16-2022 Urea nitrogen [Mass/Vol] 54 mg/dL 05-29 [facility] WBC Auto (Bld) [#/Vol]Ordere d By: Ada Uriostegui on 05-16-2022 WBC (Bld) [#/Vol] 9.8 10*3/uL 4.1-10.5 [facility] SINGLE ANTIGEN CLASS 1on METHOD Class I Single Antigen Normal [facility] Comment on above: Order Comment: [...] to frequency. Performed By: #### 4 1533, 09276, 57810, 62772, 63149, 47112 #### [facility] [address] SPECIFICITY Normal [facility] Comment on above: Order Comment: [...] 34 B:76 Performed By: #### 4 1533, 95064, 18916, 68286, 68657, 86320 #### [facility] [address] [facility]. [address] SINGLE ANTIGEN CLASS 2on COMMENTS Normal [facility] Comment on above: Order Comment: [...] Specificites Found Performed By: #### 4 1533, 65461, 49869, 03300, 13768, 38505 #### [facility] [address] [place] [address], [facility] Result Comment: Clas s I Antigen Microbeads Potential specificites added to the watch list. METHOD Class II Single Antigen Normal [facility] Comment on above: Order Comment: [...] to frequency. Performed By: #### 4 1533, 76873, 64486, 41958, 45820, 98312 #### [facility] [address] [place] [address], [facility] SIGNED BY Normal [facility] Comment on above: Order Comment: [...] to frequency. Result Comment: Delano Nuno, MS,CHT(RAJESH),MT(ASCP) Wireless Operator, Transplant Immunology Performed By: #### 4 1533, 26777, 93183, 93171, 79604, 01228 #### [facility] [address] [place] [address], [place] BLOOD TYPE AND RHon 04-07-20 ABO INTERPRETATION A Normal [facility] Comment on above: Performed By: #### 4 1533, 32197, 43198, 62428, 86811, 60576 #### [facility] [address] [place] [address], [place] RH INTERPRETATION Positive Normal [facility] Comment on above: Performed By: #### 4 1533, 36006, 95762, 33051, 71405, 20006 #### [facility] [address] BNP (B-TYPE NATRIURETIC PEPT BALTAZAR)on 04-07-2022 Natriuretic peptide B (Bld) [Mass/Vol] 32 pg/mL Normal 0-100 [facility] Comment on above: Result Comment: Give n the appropriate clinical setting a BNP result of >100 pg/mL indicates congestive heart failure. Performed By: #### 4 1533, 74181, 29625, 13419, 83829, 84995 #### [facility] [address] CBC W/DIFFon 04-07-2022 ABS IMM GRANS 0.1 10*3/uL Normal 0.0-0.2 [facility] Comment on above: Performed By: #### 4 1533, 78968, 09272, 94707, 16966, 19138 #### [facility] [address] ABS NEUTROPHILS 6.3 10*3/uL Normal 1.6-7.6 [facility] Comment on above: Performed By: #### 4 1533, 23375, 04670, 16338, 98129, 94870 #### [facility] [address] Basophils (Bld) [#/Vol] 0.1 10*3/uL Normal 0.0-0.2 [facility] Comment on above: Performed By: #### 4 1533, 80464, 87291, 30993, 28091, 01418 #### [facility] [address] Basophils/100 WBC (Bld) 0.5 % Normal 0.0-1.0 [facility] Comment on above: Performed By: #### 4 1533, 91598, 02516, 84067, 66275, 37589 #### [facility] [address] [place] [address], [facility] Eosinophils (Bld) [#/Vol] 0.3 10*3/uL Normal 0.0-0.5 [facility] Comment on above: Performed By: #### 4 1533, 25910, 12711, 95205, 42633, 46932 #### [facility] [address] [place] [id number], [facility] Eosinophils/100 WBC (Bld) 2.5 % Normal 0.0-6.0 [facility] Comment on above: Performed By: #### 4 1533, 02983, 18884, 13665, 36590, 17471 #### [facility] [address] [place] [address], [facility] Erythrocyte distribution width (RBC) [Ratio] 13.2 % Normal 11.5-15.0 [facility] Comment on above: Performed By: #### 4 1533, 15308, 64628, 63110, 70848, 38947 #### [facility] [address] [place] [address], [facility] Hematocrit (Bld) [Volume fraction] 34.6 % Low 39.0-50.0 [facility] Comment on above: Performed By: #### 4 1533, 43587, 41405, 57428, 06738, 30252 #### [facility] [address] [place] [address], [facility] Hemoglobin (Bld) [Mass/Vol] 11.4 g/dL Low 13.0-17.0 [facility] Comment on above: Performed By: #### 4 1533, 52587, 29257, 57492, 34887, 48886 #### [facility] [address] [place] [address], [facility] IMMATURE GRANS 1.0 % Normal 0.0-1.0 [facility] Comment on above: Performed By: #### 4 1533, 49007, 11169, 47810, 26445, 28650 #### [facility] [address] [place] [address], [facility] Lymphocytes (Bld) [#/Vol] 2.5 10*3/uL Normal 1.2-4.0 [facility] Comment on above: Performed By: #### 4 1533, 12627, 64890, 84590, 60400, 70101 #### [facility] [address] [place] [address], [facility] Lymphocytes/100 WBC (Bld) 25.2 % Normal 20.0-45.0 [facility] Comment on above: Performed By: #### 4 1533, 41275, 23917, 19267, 10353, 26010 #### [facility] [address] [place] [address], [facility] MCH (RBC) [Entitic mass] 29.3 pg Normal 27.0-33.0 [facility] Comment on above: Performed By: #### 4 1533, 37941, 53381, 34536, 66370, 65207 #### [facility] [address] [address], [facility] MCHC (RBC) [Mass/Vol] 32.9 g/dL Normal 32.0-35.0 [facility] Comment on above: Performed By: #### 4 1533, 48073, 03402, 89962, 23006, 12449 #### [facility] [address] [place] [address], [facility] MCV (RBC) [Entitic vol] 88.9 fL Normal 82.0-98.0 [facility] Comment on above: Performed By: #### 4 1533, 71365, 21534, 52076, 09331, 11291 #### [facility] [address] [place] [address], [facility] Monocytes (Bld) [#/Vol] 0.8 10*3/uL Normal 0.1-1.0 [facility] Comment on above: Performed By: #### 4 1533, 43828, 16001, 03131, 41527, 42544 #### [facility] [address] [place] [address], [facility] MONOS 8.3 % Normal 5.0-12.0 [facility] Comment on above: Performed By: #### 4 1533, 32745, 23355, 19961, 71680, 02619 #### [facility] [address] [place] [address], [facility] Neutrophils/100 WBC (Bld) 62.5 % Normal 40.0-72.0 [facility] Comment on above: Performed By: #### 4 1533, 99686, 20795, 47479, 29316, 21049 #### [facility] [address] [facility] [place] [address], [facility] Nucleated RBC/100 WBC (Bld) [Ratio] 0 % Normal 0-0 [facility] Comment on above: Performed By: #### 4 1533, 27685, 94470, 05293, 63189, 87140 #### [facility] [address] [facility] [place] [address], [facility] PLAT CNT 442 10*3/uL High 150-400 [facility] Comment on above: Performed By: #### 4 1533, 99737, 51041, 04839, 13422, 20586 #### [facility] [address] [facility] [place] [address], [facility] RBC (Bld) [#/Vol] 3.89 10*6/uL Low 4.20-5.70 [facility] Comment on above: Performed By: #### 4 1533, 31758, 96253, 49068, 52880, 99685 #### [facility] [address] [place] [address], [place] WBC (Bld) [#/Vol] 10.00 10*3/uL Normal 4.00-10.60 [facility] Comment on above: Performed By: #### 4 1533, 70765, 80503, 15762, 98647, 28815 #### [id number] [place] [address] CHEST AND LATERALon 04-07-20 CHEST AND LATERAL [facility] Department of Radiology [address] [place] [address] ===== Patient Name: EVANS FORTE [...] change. Electronically signed: Rehan Zaragoza. Transcribed by: [email or web address], User Resident: Electronically Signed by: REHAN ZARAGOZA @ 04/08/2022 07:43 AM Normal [facility] CMV IGG BLOODon 04-07-2022 CMV IGG 0.00 Normal [facility] Comment on above: Order Comment: only males 40 and older Result Comment: NORM AL RANGES: < OR = 0.9O NEGATIVE ; NO DETECTABLE IgG ANTIBODY TO CMV 0.91 - 1.09 EQUIVOCAL; REPEAT TESTING SUGGESTED > OR = 1.10 POSITIVE ; INDICATES PRESENCE OF DETECTABLE IgG ANTIBODY TO CMV Performed By: #### 4 1533, 75662, 29026, 26476, 06970, 01171 #### [facility] [address] [facility] [place] [address], [facility] COMP METABOLIC PANELon 04-07 Albumin [Mass/Vol] 4.2 g/dL Normal 3.5-5.7 [facility] Comment on above: Performed By: #### 0 0121, 50326, 81123 #### [facility] [address] [place] [address], [facility] ALKALINE PHOSPH 72 IU/L Normal 34-104 [facility] Comment on above: Performed By: #### 0 0121, 40330, 92043 #### [facility] [address] [place] [address], [facility] ALT [Catalytic activity/Vol] 18 U/L Normal 7-52 [facility] Comment on above: Performed By: #### 0 0121, 22909, 41699 #### [facility] [address] [place] [address], [facility] AST [Catalytic activity/Vol] 11 U/L Low 13-39 [facility] Comment on above: Performed By: #### 0 0121, 88715, 41801 #### [facility] [address] [place] [address], [place] Bilirubin [Mass/Vol] 0.3 mg/dL Normal 0.3-1.0 [facility] Comment on above: Performed By: #### 0 0121, 80078, 48392 #### [facility] [address] [place] [address], [place] Calcium [Mass/Vol] 10.4 mg/dL High 8.6-10.3 [facility] Comment on above: Performed By: #### 0 0121, 97427, 68498 #### [facility] [address] [place] [address], [place] Chloride [Moles/Vol] 106 mmol/L Normal 98-107 [facility] Comment on above: Performed By: #### 0 0121, 69855, 42350 #### [facility] [address] [place] [address], [place] CO2 [Moles/Vol] 24 mmol/L Normal 21-31 [facility] Comment on above: Performed By: #### 0 0121, 51659, 24446 #### [facility] [address] [place] [address], [place] Creatinine [Mass/Vol] 5.07 mg/dL High 0.70-1.30 [facility] Comment on above: Performed By: #### 0 0121, 26198, 86407 #### [facility] [address] [place] [address], [place] EGFR 13 ml/min/1.73sq m Abnormal >60 [facility] Comment on above: Result Comment: [facility]'s estimated glomerular filtration rate (eGFR) will [...] of individuals. Performed By: #### 0 0121, 64699, 33214 #### [facility] [address] [place] [address], [place] Glucose [Mass/Vol] 106 mg/dL High 70-100 [facility] Comment on above: Performed By: #### 0 0121, 01063, 96525 #### [facility] [address] [place] [address], [facility] Potassium [Moles/Vol] 4.6 mmol/L Normal 3.5-5.1 [facility] Comment on above: Performed By: #### 0 0121, 35888, 19788 #### [facility] [address] [place] [address], [place] Protein [Mass/Vol] 7.2 g/dL Normal 6.0-8.3 [facility] Comment on above: Performed By: #### 0 0121, 44343, 75060 #### [facility] [address] [place] [address], [place] Sodium [Moles/Vol] 138 mmol/L Normal 136-145 [facility] Comment on above: Performed By: #### 0 0121, 27416, 79558 #### [facility] [address] [place] [address], [place] Urea nitrogen [Mass/Vol] 59 mg/dL High 7-25 [facility] Comment on above: Performed By: #### 0 0121, 23233, 17921 #### [facility] [address] [place] [address], [place] CREATININE URINE RANDOMon Creatinine (U) [Mass/Vol] 79.0 mg/dL Normal [facility] Comment on above: Result Comment: Ther e are no established reference values for random urine specimens Performed By: #### 4 1533, 36664, 21657, 33645, 81789, 72806 #### [address] RENAL RECIPIENT ABDOMEN A ND PEVLIS WO CONTRASTon 04-07-2022 CT RENAL RECIPIENT ABDOMEN AND PEVLIS WO CONTRAST [facility] Department of Radiology [address] [place] [address] ===== Patient Name: EVANS FORTE : 1970 Sex: M Age: Race: White Pt. Location: 20 Patient Status: D Ordered Date: 04/07/2022 1:10:00 PM Completed Date: 04/07/2022 01:22 PM Requesting Provider: BERTIN RUSSELL Attending Provider: BERTIN RUSSELL Report Copy To: IDANIA RICKETTS Signs & Symptoms: Z01.818 Encounter for other preprocedural examination I10 History: [place] Comments: Pre-kidney transplant work-up. Please evaluate vessels [...] arteries. Electronically signed: SAYDA GRACE. Transcribed by: [email or web address], User Resident: Electronically Signed by: SAYDA GRACE @ 04/09/2022 10:03 AM Normal [facility] Comment on above: Order Comment: Pre-k idney transplant work-up. Please evaluate vessels for kidney transplant. , Height (ft.): 6 ft 0 in , Weight (lbs): 304 DIRECT BILIon 04-07-2022 Bilirubin.direct [Mass/Vol] 0.0 mg/dL Normal 0.0-0.2 [facility] Comment on above: Performed By: #### 0 0121, 88254, 64468 #### [facility] [address] [place] [address], [facility] ELLY LORENZO VIRUS ABon 08-0 EB VCA IGG 3.86 Normal [facility] Comment on above: Order Comment: only males 40 and older Result Comment: NORM AL RANGES: < OR = 0.9O NEGATIVE ; NO DETECTABLE IgG ANTIBODY TO EBV-VCA 0.91 - 1.09 EQUIVOCAL; REPEAT TESTING SUGGESTED > OR = 1.10 POSITIVE ; INDICATES PRESENCE OF DETECTABLE IgG ANTIBODY TO EBV Performed By: #### 4 1533, 94373, 89924, 72666, 36503, 32868 #### [facility] [address] [facility] [address] EB VCA IGM 0.00 Normal [facility] Comment on above: Order Comment: only males 40 and older Result Comment: NORM AL RANGES: < OR = 0.9O NEGATIVE ; NO SIGNIFICANT LEVEL OF DETECTABLE EBV-VCA IgM AB 0.91 - 1.09 EQUIVOCAL; REPEAT TESTING SUGGESTED > OR = 1.10 POSITIVE ; SIGNIFICANT LEVEL OF DETECTABLE EBV-VCA IgM AB Performed By: #### 4 1533, 80208, 35058, 78866, 18004, 61564 #### [facility] [address] HEMOGLOBIN A1Con 04-07-2022 Glucose [Moles/Vol] 174 mmol/L Normal [facility] Comment on above: Performed By: #### 4 1533, 63170, 08285, 19594, 95566, 88340 #### [facility] [address] HbA1c (Bld) [Mass fraction] 7.7 % High 4.0-6.0 [facility] Comment on above: Performed By: #### 4 1533, 54076, 63879, 45926, 12690, 01942 #### [facility] [address] HEPATITIS A ANTIBODY IGMon 0 04-07-2022 HEP A AB IGM Non-Reactive Normal NONREACTIVE [facility] Comment on above: Performed By: #### 4 1533, 98011, 03285, 20437, 40320, 46128 #### [facility] [address] HEPATITIS B CORE ANTIBODYon 04-07-2022 HEP B CORE AB Non-Reactive Normal NONREACTIVE [facility] Comment on above: Performed By: #### 4 1533, 69580, 36703, 63029, 55674, 92598 #### [facility] [address] [place] [address], [facility] HEPATITIS B SURFACE ANTIBODY QUANTon 04-07-2022 HEP B SURF AB 0.95 mIU/ml Normal [facility] Comment on above: Result Comment: INTE RPRETATION: NONREACTIVE<8.00 mIU/mL INDETERMINATE8.00 - 12.00 mIU/mL REACTIVE>12 mIU/mL Performed By: #### 4 1533, 99153, 75964, 74080, 06240, 99664 #### [facility] [address] [place] [address], [facility] HEPATITIS B SURFACE ANTIGEN QUALon 04-07-2022 HEP B SURF AG QUAL Non-Reactive Normal NONREACTIVE [facility] Comment on above: Performed By: #### 4 1533, 87970, 73856, 67749, 51462, 23238 #### [facility] [address] [place] [address], [facility] HEPATITIS C ANTIBODYon 04-07 ANTI-HCV Non-Reactive Normal NONREACTIVE [facility] Comment on above: Performed By: #### 4 1533, 02479, 15909, 70976, 38950, 42517 #### [facility] [address] [place] [address], [facility] HIV1 AND 2 COMBO 4Gon 2021 HIV COMBO Negative Normal NEGATIVE [facility] Comment on above: Performed By: #### 3 0625 #### [facility] [address] [place] [address], [facility] LIPID PROFILEon 04-07-2022 Cholesterol [Mass/Vol] 174 mg/dL Normal 120-200 Th e [facility] Comment on above: Result Comment: CHOL ESTEROL REFERENCE RANGE: 20 YEARS AND OLDER CARDIOVASCULAR RISK Less than 200 mg/dl Low Risk 200 to 239 mg/dl Borderline Risk 240 mg/dl and greater High Risk Performed By: #### 0 0121, 90663, 84198 #### [facility] [address] [place] [address], [place] Cholesterol in HDL [Mass/Vol] 37 mg/dL Normal 23-92 [facility] Comment on above: Result Comment: Slig ht variation in normal range could be due to gender and/or age. HDL CHOLESTEROL REFERENCE RANGE: 20 years and older Cardiovascular Risk > or =60 mg/dL Desirable 40 TO 59 mg/dL Low Risk <40 mg/dL High Risk Performed By: #### 0 0121, 21490, 94914 #### [facility] [address] [place] [address], [place] Cholesterol in LDL [Mass/Vol] 84 mg/dL Normal 0-130 [facility] Comment on above: Result Comment: LDL IS A CALCULATION LDL IS ONLY VALID IF THE TRIG IS LESS THAN 400. Performed By: #### 0 0121, 51777, 35007 #### [facility] [address] [place] [address], [place] Cholesterol.total/Chol esterol in HDL [Mass ratio] 4.7 {ratio} High .0-4.5 [facility] Comment on above: Performed By: #### 0 0121, 74578, 70233 #### [facility] [address] [place] [address], [place] NON-HDL CHOLESTEROL 137 mg/dL Normal [facility] Comment on above: Performed By: #### 0 0121, 57667, 83045 #### [facility] [address] [place] [address], [place] Triglyceride [Mass/Vol] 265 mg/dL High 40-149 [facility] Comment on above: Result Comment: TRIG LYCERIDE REFERENCE RANGE: 20 YEARS AND OLDER CARDIOVASCULAR RISK LESS THAN 150 mg/dl LOW RISK 150 TO 199 mg/dl BORDERLINE RISK 200 mg/dl AND GREATER HIGH RISK Performed By: #### 0 0121, 49897, 46972 #### [facility] [address] VLDL CHOL 53 mg/dL High 0-40 [facility] Comment on above: Performed By: #### 0 0121, 92679, 41856 #### [facility] [address] [place] [address], [facility] MUMPS IGG BLDon 04-07-2022 MUMPS IGG 1.24 Normal [facility] Comment on above: Result Comment: NORM AL RANGES: < OR = 0.9O NEGATIVE ; NO DETECTABLE IgG ANTIBODY TO MUMPS 0.91 - 1.09 EQUIVOCAL; REPEAT TESTING SUGGESTED > OR = 1.10 POSITIVE ; INDICATES PRESENCE OF DETECTABLE IgG ANTIBODY TO MUMPS Performed By: #### 4 1533, 88612, 08507, 49976, 27977, 77200 #### [facility] [address] RUBELLAon 04-07-2022 RUBELLA 0.81 Normal [facility] Comment on above: Result Comment: 1.09 RAN IN TRIPLICATE NORMAL RANGES: < OR = 0.9O NEGATIVE ; NO DETECTABLE IgG ANTIBODY TO RUBELLA 0.91 - 1.09 EQUIVOCAL; REPEAT TESTING SUGGESTED > OR = 1.10 POSITIVE ; INDICATES PRESENCE OF DETECTABLE IgG ANTIBODY TO RUBELLA VIRUS Performed By: #### 4 1533, 77678, 98198, 31066, 33854, 18727 #### [facility] [address] RUBEOLA MEASLES IGGon 2021 RUBEO IGG 0.57 Normal [facility] Comment on above: Result Comment: NORM AL RANGES: < OR = 0.9O NEGATIVE ; NO DETECTABLE IgG ANTIBODY TO RUBEOLA 0.91 - 1.09 EQUIVOCAL; REPEAT TESTING SUGGESTED > OR = 1.10 POSITIVE ; INDICATES PRESENCE OF DETECTABLE IgG ANTIBODY TO RUBEOLA Performed By: #### 4 1533, 41526, 73343, 02838, 83361, 18063 #### [facility] [address] SINGLE ANTIGEN CLASS 1on METHOD Class I Single Antigen Normal Th e [facility] Comment on above: Order Comment: [...] to frequency. Performed By: #### 4 1533, 37761, 21114, 10094, 00765, 67001 #### [facility] [address] SINGLE ANTIGEN CLASS 2on COMMENTS Normal [facility] Comment on above: Order Comment: [...] watch list. Performed By: #### 4 1533, 49603, 32410, 96099, 10339, 28897 #### [facility] [address] Result Comment: Clas s I Antigen Microbeads Potential specificites added to the watch list. CPRA 0 Normal [facility] Comment on above: Order Comment: [...] to frequency. Performed By: #### 4 1533, 46015, 29598, 41146, 87441, 76384 #### [facility] [address] [facility] [place], [place] [id number] [place] [address] METHOD Class II Single Antigen Normal T he [facility] Comment on above: Order Comment: [...] to frequency. Performed By: #### 4 1533, 53321, 42593, 27962, 11378, 94169 #### [facility] [address] [facility]. [address] SIGNED BY Normal [facility] Comment on above: Order Comment: [...] to frequency. Result Comment: Delano Nuno, MS,CHT(RAJESH),MT(ASCP) Wireless Operator, Transplant Immunology Performed By: #### 4 1533, 93341, 10944, 25720, 38928, 34039 #### [facility] [address] [facility] [place] [address], [facility] T PROT UR Ryne 04-07-2022 U TOTAL PROTEIN 336.4 mg/dL Normal [facility] Comment on above: Result Comment: Ther e are no established reference values for random urine specimens Performed By: #### 4 1533, 10829, 12385, 16702, 56683, 00207 #### [facility] [address] [facility] [place] [address], [place] TB QUANTIFERON PLUSon 2021 MITOGEN MINUS NIL >10.00 Normal [facility] Comment on above: Performed By: #### 4 1533, 97950, 76280, 78697, 24846, 50479 #### [facility] [address] [place] [address], [place] NIL 0.02 IU/mL Normal [facility] Comment on above: Performed By: #### 4 1533, 12001, 95463, 52937, 29862, 15107 #### [facility] [address] [place] [address], [facility] TB QUANTIFERON Negative Normal NEGATIVE [facility] Comment on above: Result Comment: Shawn tiferon TB Gold Interpretation (IU/mL): NEGATIVE: M. tuberculosis infection not likely. Nil: <=8.0 TB1 Antigen minus Nil ([id number]): <0.35 OR >=0.35; and <25% of Nil value. TB2 Antigen minus Nil (BH6PY-KCN): <0.35 OR >=0.35; and <25% of Nil [...] LTBI (https://www.cdc.gov/tb/publications/guidlines/default.htm Performed By: #### 4 1533, 89323, 28192, 46818, 54261, 04627 #### [facility] [address] [place] [address], [place] TB1 AG 0.05 IU/mL Normal [facility] Comment on above: Performed By: #### 4 1533, 89583, 71454, 44429, 29564, 45819 #### [facility] [address] [place] [address], [place] TB1 AG MINUS NIL 0.03 IU/mL Normal [facility] Comment on above: Performed By: #### 4 1533, 70905, 36640, 03850, 64096, 35375 #### [facility] [address] [place] [address], [facility] TB2 AG 0.04 IU/mL Normal [facility] Comment on above: Performed By: #### 4 1533, 41388, 56097, 24621, 89708, 63916 #### [facility] [address] [place] [address], [place] TB2 AG MINUS NIL 0.02 IU/mL Normal [facility] Comment on above: Performed By: #### 4 1533, 03931, 52456, 23757, 81255, 08725 #### [facility] [address] [facility] [place] [address], [facility] TESTOSTERONE, FREE+SHBG+TOTA L ILon 04-07-2022 [place] Normal [facility] Comment on above: Result Comment: Test Performed by [employer] [address] [place] [address] - Released 04/08/2022 09:48 SEX HORM BIND GLOB 23 nmol/L Normal 11-80 [facility] Testosterone [Mass/Vol] 178 ng/dL Low 220-1000 [facility] TESTOSTERONE, FREE 40.8 pg/mL Low 47-244 [facility] Comment on above: Result Comment: The concentration of free testosterone is derived from a mathematical expression based on the constant for the binding of testosterone to albumin and/or sex hormone binding globulin. UA,MICROSCOPIC REQUIREDon Appearance (U) CLEAR Normal CLEAR [facility] Comment on above: Performed By: #### 4 1533, 26248, 64134, 03175, 39241, 72813 #### [facility] [address] [place] [address], [place] Bilirubin Ql (U) Negative Normal NEGATIVE [facility] Comment on above: Performed By: #### 4 1533, 07744, 67614, 05472, 50029, 56069 #### [facility] [address] [place] [address], [facility] Color (U) YELLOW Normal YELLOW [facility] Comment on above: Performed By: #### 4 1533, 29359, 29413, 81610, 45784, 66699 #### [facility] [address] [place] [address], [facility] EPIS OCC Normal FEW,OCC,NONE SEEN [facility] Comment on above: Performed By: #### 4 1533, 55047, 63960, 38457, 07814, 76030 #### [facility] [address] [facility] [place] [address], [facility] Glucose Ql (U) 250 mg/dL Abnormal NEGATIVE [facility] Comment on above: Performed By: #### 4 1533, 50092, 16719, 21393, 99312, 11896 #### [facility] [address] [place] [address], [facility] Hemoglobin Ql (U) TRACE Abnormal NEGATIVE [facility] Comment on above: Performed By: #### 4 1533, 83375, 26295, 47727, 82281, 59713 #### [facility] [address] [facility] [place] [address], [facility] KETONE Negative Normal NEGATIVE [facility] Comment on above: Performed By: #### 4 1533, 32590, 10796, 75575, 32116, 52079 #### [facility] [address] [place] [address], [facility] LEUK AGNES Negative Normal NEGATIVE [facility] Comment on above: Performed By: #### 4 1533, 33099, 33264, 48076, 78474, 04229 #### [facility] [address] [place] [address], [facility] Nitrite Ql (U) Negative Normal NEGATIVE [facility] Comment on above: Performed By: #### 4 1533, 22077, 18788, 95801, 37207, 70542 #### [facility] [address] [facility]. [address] pH (U) 5.5 [pH] Normal 5.0-8.0 [facility] Comment on above: Performed By: #### 4 1533, 80392, 92551, 43341, 13013, 52483 #### [facility] [address] [facility] [place] [address], [facility] Protein Ql (U) 100 Abnormal NEGATIVE [facility] Comment on above: Performed By: #### 4 1533, 70756, 15490, 30235, 00754, 12909 #### [facility] [address] [facility]. [address] RBC 0-2 Abnormal NONE SEEN [facility] Comment on above: Performed By: #### 4 1533, 98247, 02178, 62900, 17465, 52056 #### [facility] [address] [facility]. [address] SPEC GRAV 1.020 Normal 1.015-1.020 [facility] Comment on above: Performed By: #### 4 1533, 75715, 32018, 83962, 56950, 41520 #### [facility] [address] [facility] [place] [address], [facility] WBC UA 0-2 Abnormal NONE SEEN [facility] Comment on above: Performed By: #### 4 1533, 00818, 80197, 45871, 39503, 44635 #### [facility] [address] [facility]. [address] VARICELLA ZOSTER IGGon 04-07 VARICELLA IGG 1.40 Normal [facility] Comment on above: Result Comment: NORM AL RANGES: < OR = 0.9O NEGATIVE ; NO DETECTABLE IgG ANTIBODY TO VARICELLA-ZOSTER VIRUS 0.91 - 1.09 EQUIVOCAL; REPEAT TESTING SUGGESTED > OR = 1.10 POSITIVE ; INDICATES PRESENCE OF DETECTABLE IgG ANTIBODY TO VARICELLA-ZOSTER VIRUS Performed By: #### 4 [id number], [id number], [id number], [id number], [id number] #### [facility] [address] [place] [address], [facility] Albumin [Mass/volume] in Ser um or PlasmaOrdered By: Ada Uriostegui on 02-20-2022 Albumin [Mass/Vol] 3.4 g/dL 3.2-5.5 [facility] Automated erythrocytes count in urine sediment (number/area)Ordered By: Ada Uriostegui on 02-20-2022 RBC Auto (Urine sed) [#/Area] 1-2 [HPF] 0-4 [facility] Automated leukocytes count i n urine sediment (number/area)Ordered By: Ada Uriostegui on 02-20-2022 WBC Auto (Urine sed) [#/Area] 0-1 [HPF] 0-4 [facility] Bilirubin Test strip Ql (U)O rdered By: Ada Uriostegui on 02-20-2022 Bilirubin Ql (U) Negative Negative [facility] Blood hemoglobin measurement (mass/volume)Ordered By: Ada Uriostegui on 02-20-2022 Hemoglobin (Bld) [Mass/Vol] 11.1 g/dL 13.0-17.[address] [facility] [address] biopsyOrdered By: Jonathan christensen on 02-20-2022 Transferrin [Mass/Vol] 284 mg/dL 180-380 [facility] Color Auto (U)Ordered By: Ab akhil Uriostegui on 02-20-2022 Color (U) Yellow Yellow [facility] Creatinine [Mass/volume] in UrineOrdered By: Ada Uriostegui on 02-20-2022 Creatinine (U) [Mass/Vol] 73.3 mg/dL [facility] Comment on above: No reference range e stablished Creatinine and Glomerular fi ltration rate.predicted panel (S/P/Bld)Ordered By: Ada Uriostegui on 02-20-2022 Creatinine [Mass/Vol] 4.65 mg/dL 0.64-1.27 [facility] Erythrocyte distribution wid th Auto (RBC) [Ratio]Ordered By: Aad Uriostegui on 02-20-2022 Erythrocyte distribution width (RBC) [Ratio] 13.9 % 12.0-14.8 [facility] Estimated glomerular filtrat ion rate (GFR) non- AmericanOrdered By: Ada Uriostegui on 02-20-2022 GFR/1.73 sq M.predicted among non-blacks MDRD (S/P/Bld) [Vol rate/Area] 13 mL/Min [facility] Ferritin [Mass/volume] in Se rum or PlasmaOrdered By: Ada Uriostegui on 02-20-2022 Ferritin [Mass/Vol] 471.8 ng/mL 23.9-336.2 [facility] Hematocrit Auto (Bld) [Volum e fraction]Ordered By: Ada Uriostegui on 02-20-2022 Hematocrit (Bld) [Volume fraction] 32.9 % 38.8-50.0 [facility] Iron [Mass/volume] in Serum or PlasmaOrdered By: Ada Uriostegui on 02-20-2022 Iron [Mass/Vol] 74 ug/dL 40-160 [facility] Iron binding capacity [Mass/ volume] in Serum or PlasmaOrdered By: Ada Uriostegui on 02-20-2022 Iron binding capacity [Mass/Vol] 398 ug/dL 255-450 [facility] Iron saturation [Mass Fracti on] in Serum or PlasmaOrdered By: Ada Uriostegui on 02-20-2022 Iron saturation [Mass fraction] 18.0 % 20-50 [facility] Ketones Auto test strip (U) [Mass/Vol]Ordered By: Ada Uriostegui on 02-20-2022 Ketones (U) [Mass/Vol] Negative Negative [facility] - Chemistry and C hemistry - challengeOrdered By: Ada Uriostegui on 02-20-2022 Magnesium [Mass/Vol] 1.9 mg/dL 1.6-2.6 [facility] - UrinalysisOrder ed By: Ada Uriostegui on 02-20-2022 Hyaline casts LM Ql (Urine sed) 0-8 [LPF] 0-8 [facility] MCH Auto (RBC) [Entitic mass ]Ordered By: Ada Uriostegui on 02-20-2022 MCH (RBC) [Entitic mass] 30.5 pg 27.5-35.2 [facility] MCHC Auto (RBC) [Mass/Vol]Or dered By: Ada Uriostegui on 02-20-2022 MCHC (RBC) [Mass/Vol] 33.8 g/dL 32.5-35.6 [facility] MCV Auto (RBC) [Entitic vol] Ordered By: Ada Uriostegui on 02-20-2022 MCV (RBC) [Entitic vol] 90.2 fL 83.5-101 [facility] Nitrite Test strip Ql (U)Ord ered By: Ada Uriostegui on 02-20-2022 Nitrite Ql (U) Negative Negative [facility] No Panel InformationOrdered By: Ada Uriostegui on 02-20-2022 25-Hydroxy Vitamin D Total 13.8 ng/mL 30-100 [facility] Comment on above: VITAMIN D STATUS 25( [place])VITAMIN D RANGE (ng/mL) Deficient <20 Insufficient 20 to <30 Sufficient 30 to 100 Reference: Sophy MF,Glendy NC, Nitin RAMOS, et al. Evaluation,treatment, and prevention of vitamin D deficiency; an Endocrine Society clinical practice guideline. JCEM. 2010; 96(7):1911-30. Estimated GFR () 16 mL/Min [facility] Comment on above: GFR estimated refere nce range: According to KDOQI guidelines, <60 ml/min/1.73m2 is sufficient to diagnose a patient with chronic kidney disease. Pharmacy Creatinine Clearance (Chem N/A [facility] Phosphate [Mass/volume] in S james or PlasmaOrdered By: Ada Uriostegui on 02-20-2022 Phosphate [Mass/Vol] 4.2 mg/dL 2.5-4.6 [facility] Platelet mean volume Auto (B ld) [Entitic vol]Ordered By: Ada Uriostegui on 02-20-2022 Platelet mean volume (Bld) [Entitic vol] 7.4 fL 6.6-10.1 [facility] Platelets Auto (Bld) [#/Vol] Ordered By: Ada Uriostegui on 02-20-2022 Platelets (Bld) [#/Vol] 497 10*3/uL 150-450 [facility] Protein Auto test strip (U) [Mass/Vol]Ordered By: Ada Uriostegui on 02-20-2022 Protein (U) [Mass/Vol] 300 mg/dL Negative [facility] Protein [Mass/volume] in Uri neOrdered By: Ada Uriostegui on 02-20-2022 Protein (U) [Mass/Vol] 303 mg/dL 0-9 [facility] RBC Auto (Bld) [#/Vol]Ordere d By: Ada Uriostegui on 02-20-2022 RBC (Bld) [#/Vol] 3.64 10*6/uL 3.90-5.60 [facility] Serum or plasma calcium shante urement (mass/volume)Ordered By: Ada Uriostegui on 02-20-2022 Calcium [Mass/Vol] 8.8 mg/dL 8.2-10.2 [facility] Serum or plasma chloride alber surement (moles/volume)Ordered By: Ada Uriostegui on 02-20-2022 Chloride [Moles/Vol] 106 mmol/L 95-114 [facility] Serum or plasma glucose shante urement (mass/volume)Ordered By: Ada Uriostegui on 02-20-2022 Glucose [Mass/Vol] 65 mg/dL 70-100 [facility] Comment on above: ADA recommended refe rence range Random Glucose Reference Range is dependent on time and content of last meal. Glucose of more than 200 mg/dL in a nonstressed, ambulatory subject supports the diagnosis of Diabetes Mellitus. Serum or plasma intact parat hyroid hormone measurement (mass/volume)Ordered By: Ada Uriostegui on 02-20-2022 Parathyrin.intact [Mass/Vol] 251.7 pg/mL 12-88 [facility] Serum or plasma potassium me asurement (moles/volume)Ordered By: Ada Uriostegui on 02-20-2022 Potassium [Moles/Vol] 4.7 mmol/L 3.5-5.1 [facility] Serum or plasma sodium measu rement (moles/volume)Ordered By: Ada Uriostegui on 02-20-2022 Sodium [Moles/Vol] 141 mmol/L 136-146 [facility] Serum or plasma total carbon dioxide measurement (moles/volume)Ordered By: Ada Uriostegui on 02-20-2022 CO2 [Moles/Vol] 24.3 mmol/L 22.0-30.0 [facility] Serum or plasma urea nitroge n measurement (mass/volume)Ordered By: Ada Uriostegui on 02-20-2022 Urea nitrogen [Mass/Vol] 51 mg/dL 9- [facility] Serum or plasma uric acid me asurement (mass/volume)Ordered By: Ada Uriostegui on 02-20-2022 Urate [Mass/Vol] 6.6 mg/dL 2.6-7.2 [facility] Specific gravity Auto test s trip (U) [Rel density]Ordered By: Ada Uriostegui on 02-20-2022 Specific gravity (U) [Rel density] 1.013 1.001-1.030 [facility] Squamous epithelial cells de tection in urine sediment by light microscopyOrdered By: Ada Uriostegui on 02-20-2022 Epithelial cells.squamous LM Ql (Urine sed) 0-1 [HPF] 0-2 [facility] Urine bacteria detection by automated methodOrdered By: Ada Uriostegui on 02-20-2022 Bacteria Auto Ql (U) None seen None Seen [facility] Urine clarity by refractomet ry automatedOrdered By: Ada Uriostegui on 02-20-2022 Clarity Refractometry automated (U) Clear Clear [facility] Urine glucose measurement by automated test strip (mass/volume)Ordered By: Ada Uriostegui on 02-20-2022 Glucose Auto test strip (U) [Mass/Vol] Normal mg/dL Normal [facility] Urine hemoglobin detection b y automated test stripOrdered By: Ada Uriostegui on 02-20-2022 Hemoglobin Auto test strip Ql (U) Trace Negative [facility] Urine leukocyte esterase det ection by automated test stripOrdered By: Ada Uriostegui on 02-20-2022 Leukocyte esterase Auto test strip Ql (U) Negative Negative [facility] Urine protein/creatinine rat ioOrdered By: Ada Uriostegui on 02-20-2022 Protein/Creatinine (U) [Ratio] 4134 mg/g{Cre} 0-200 [facility] Urobilinogen Auto test strip (U) [Mass/Vol]Ordered By: Ada Uriostegui on 02-20-2022 Urobilinogen (U) [Mass/Vol] Normal mg/dL Normal [facility] WBC Auto (Bld) [#/Vol]Ordere d By: Ada Uriostegui on 02-20-2022 WBC (Bld) [#/Vol] 9.6 10*3/uL 4.1-10.5 [facility] pH Auto test strip (U)Ordere d By: Ada Uriostegui on 02-20-2022 pH (U) 5.5 [pH] 5.0-9.0 [facility] C-Reactive Proteinon 022 CRP IV 3.4 mg/dl Normal <5.0 [facility] [employer] Comment on above: Performed By: #### C BCAD, CMP, ESR, CRP #### [facility] [address], [place] [id number] Complete Blood Count with Au to Diffon 10-23-2021 Basophils (Bld) [#/Vol] 0.08 10*3/uL Normal 0.00-0.20 [facility] Comment on above: Performed By: #### C BCAD, CMP, ESR, CRP #### [facility] [address], [place] [id number] Basophils/100 WBC (Bld) 0.4 % Normal [facility] [employer] Comment on above: Performed By: #### C BCAD, CMP, ESR, CRP #### [facility] [address], [place] [id number] Eosinophils (Bld) [#/Vol] 0.34 10*3/uL Normal 0.02-0.50 [facility] [employer] Comment on above: Performed By: #### C BCAD, CMP, ESR, CRP #### [facility] [address], [place] [id number] Eosinophils/100 WBC (Bld) 1.8 % Normal [place] [employer] Comment on above: Performed By: #### C BCAD, CMP, ESR, CRP #### [facility] [address], [place] [id number] Erythrocyte distribution width (RBC) [Ratio] 12.9 % Normal 11.0-15.0 [facility] Comment on above: Performed By: #### C BCAD, CMP, ESR, CRP #### [facility] [address], [place] [id number] Hematocrit (Bld) [Volume fraction] 38.4 % Low 38.5-50.0 [facility] Comment on above: Performed By: #### C BCAD, CMP, ESR, CRP #### [facility] [address], [place] [id number] Hemoglobin (Bld) [Mass/Vol] 12.2 g/dL Low 13.0-17.1 [facility] Comment on above: Performed By: #### C BCAD, CMP, ESR, CRP #### [facility] [address], [place] [id number] Lymphocytes (Bld) [#/Vol] 1.9 10*3/uL Normal 0.9-3.9 [facility] Comment on above: Performed By: #### C BCAD, CMP, ESR, CRP #### [facility] [address], [place] [id number] Lymphocytes/100 WBC (Bld) 10.1 % Normal [facility] Comment on above: Performed By: #### C BCAD, CMP, ESR, CRP #### [facility] [address], [place] [id number] MCH (RBC) [Entitic mass] 28.8 pg Normal 27.0-33.0 [facility] Comment on above: Performed By: #### C BCAD, CMP, ESR, CRP #### [facility] [address], [place] [id number] MCHC (RBC) [Mass/Vol] 31.8 g/dL Low 32.0-36.0 [facility] Comment on above: Performed By: #### C BCAD, CMP, ESR, CRP #### [facility] [address], [place] [id number] MCV (RBC) [Entitic vol] 91 fL Normal 80-100 [facility] Comment on above: Performed By: #### C BCAD, CMP, ESR, CRP #### [facility] [address], [place] [id number] Monocytes (Bld) [#/Vol] 1.2 10*3/uL High 0.2-0.9 [facility] Comment on above: Performed By: #### C BCAD, CMP, ESR, CRP #### [facility] [address], [place] [id number] Monocytes/100 WBC (Bld) 6.3 % Normal [facility] Comment on above: Performed By: #### C BCAD, CMP, ESR, CRP #### [facility] [address], [place] [id number] Neutrophils (Bld) [#/Vol] 15.0 10*3/uL High 1.5-7.8 [facility] Comment on above: Performed By: #### C BCAD, CMP, ESR, CRP #### [facility] [address], [place] [id number] Neutrophils/100 WBC (Bld) 80.6 % Normal [facility] Comment on above: Performed By: #### C BCAD, CMP, ESR, CRP #### [facility] [address], [place] [id number] Platelet mean volume (Bld) [Entitic vol] 8.80 fL Normal 7.50-12.50 [facility] Comment on above: Performed By: #### C BCAD, CMP, ESR, CRP #### [facility] [address], [place] [id number] Platelets (Bld) [#/Vol] 586 10*3/uL High 140-400 [facility] Comment on above: Performed By: #### C BCAD, CMP, ESR, CRP #### [facility] [address], [place] [id number] RBC (Bld) [#/Vol] 4.23 10*6/uL Normal 4.20-5.80 [facility] Comment on above: Performed By: #### C BCAD, CMP, ESR, CRP #### [facility] [address], [place] [id number] RDW-SD 42.6 fL Normal 37.0-50.0 [facility] Comment on above: Performed By: #### C BCAD, CMP, ESR, CRP #### [facility] [address], [place] [id number] WBC (Bld) [#/Vol] 18.7 10*3/uL High 3.8-11.0 [facility] Comment on above: Performed By: #### C BCAD, CMP, ESR, CRP #### [facility] [address], [place] [id number] Comprehensive Metabolic Pane nick 10-23-2021 Albumin [Mass/Vol] 4.5 g/dL Normal 3.6-5.1 [facility] Comment on above: Performed By: #### C BCAD, CMP, ESR, CRP #### [facility] [address], [place] [id number] Albumin/Globulin [Mass ratio] 1.3 {ratio} Normal 1.0-2.5 [facility] Comment on above: Performed By: #### C BCAD, CMP, ESR, CRP #### [facility] [address], [place] [id number] ALP [Catalytic activity/Vol] 87 U/L Normal 40-129 [facility] Comment on above: Performed By: #### C BCAD, CMP, ESR, CRP #### [facility] [address], [place] [id number] ALT [Catalytic activity/Vol] 23 U/L Normal 9-46 [facility] Comment on above: Result Comment: 08/06 Female reference range changed. Performed By: #### C BCAD, CMP, ESR, CRP #### [facility] [address], [place] [id number] Anion gap [Moles/Vol] 23 mmol/L High 12-20 [facility] Comment on above: Result Comment: Effe ctive 09/11/2019 reference range changed. Performed By: #### C BCAD, CMP, ESR, CRP #### [facility] [address] [place] [id number] AST [Catalytic activity/Vol] 20 U/L Normal 10-40 [facility] Comment on above: Performed By: #### C BCAD, CMP, ESR, CRP #### [facility] [address] [place] [id number] BUN/CREA 15 Ratio Normal 6-22 [facility] Comment on above: Performed By: #### C BCAD, CMP, ESR, CRP #### [facility] [address], [place] [id number] Calcium [Mass/Vol] 9.6 mg/dL Normal 8.6-10.2 [facility] Comment on above: Performed By: #### C BCAD, CMP, ESR, CRP #### [facility] [address], [place] [id number] Chloride [Moles/Vol] 102 mmol/L Normal 98-107 [facility] Comment on above: Performed By: #### C BCAD, CMP, ESR, CRP #### [facility] [address] [address] [id number] CO2 [Moles/Vol] 18 mmol/L Low 20-31 [facility] Comment on above: Performed By: #### C BCAD, CMP, ESR, CRP #### [facility] [address], [place] [id number] Creatinine [Mass/Vol] 4.5 mg/dL High 0.7-1.4 [facility] Comment on above: Performed By: #### C BCAD, CMP, ESR, CRP #### [facility] [address] [id number] eGFRAA 17 mL/min/1.73m2 Low >60 [facility] Comment on above: Performed By: #### C BCAD, CMP, ESR, CRP #### [facility] [address] [place] [id number] eGFRNAA 14 mL/min/1.73m2 Low >60 [facility] Comment on above: Performed By: #### C BCAD, CMP, ESR, CRP #### [facility] [address], [place] [id number] Globulin (S) [Mass/Vol] 3.5 g/dL Normal 1.9-3.7 [facility] Comment on above: Performed By: #### C BCAD, CMP, ESR, CRP #### [facility] [address], [place] [id number] Glucose [Mass/Vol] 62 mg/dL Low 65-99 [facility] Comment on above: Result Comment: For FASTING Glucose --- ADA reference ranges: Normal 65-99 mg/dl Prediabetes 100-125 Diabetes >/= 126 Performed By: #### C BCAD, CMP, ESR, CRP #### [facility] [address], [place] [id number] Potassium [Moles/Vol] 4.7 mmol/L Normal 3.5-5.5 [facility] Comment on above: Performed By: #### C BCAD, CMP, ESR, CRP #### [facility] [address], [place] [id number] Protein [Mass/Vol] 8.0 g/dL Normal 6.1-8.1 [facility] Comment on above: Performed By: #### C BCAD, CMP, ESR, CRP #### [facility] [address], [place] [id number] Sodium [Moles/Vol] 139 mmol/L Normal 135-146 [facility] Comment on above: Performed By: #### C BCAD, CMP, ESR, CRP #### [facility] [address], [place] [id number] TBIL <0.3 Normal [facility] Comment on above: Performed By: #### C BCAD, CMP, ESR, CRP #### [facility] [address], [place] [id number] Urea nitrogen [Mass/Vol] 66 mg/dL High 7-25 [facility] Comment on above: Performed By: #### C BCAD, CMP, ESR, CRP #### [facility] [address], [place] [id number] RBC Sedimentation Rateon ESR (Bld) [Velocity] 118.00 mm/h High 0.00-20.00 [facility] [place] [employer] Comment on above: Performed By: #### C BCAD, CMP, ESR, CRP #### [facility] [address] [place] [id number] [facility] 04-02-2020 CNCO Letter Text Normal [facility] PROGRESSon 06-20-2019 PROGRESS HNO ID: [id number] Author: Dc (Rn) JACOB Mistry Service: ? Author Type: Registered Nurse Type: Progress Notes Filed: 06/20/2019 7:28 AM Note Text: On intake, patient admits to chewing tobacco. Will need to quit. New Referral Referring Physician Dr. Ada Uriostegui Organ Type kidney ESRD No. Cause: DM Dialysis Dependant? [place] of Dialysis Facility: n/a Diabetes Yes. 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 No. Facility: n/a Willing to accept blood transfusion? Yes Potential Living Donor? Yes Full transplant evaluation? Yes Nephrology Screen Required? No If yes to nephrology screen, reason: n/a Dc Mistry RN Pre-Kidney AND Pancreas [employer] [facility] Normal [facility] Vital Signs Date Time Vital Sign Value Performing Clinician Facility 05-22-2025 15:36-0400 Body height 188 cm Idania Paperlinks DO Work Phone: [facility] 05-22-2025 15:36-0400 Body mass index (BMI) [Ratio] 41.98 kg/m2 Idania PetznWi-Chi DO Work Phone: [facility] 05-22-2025 15:36-0400 Body temperature 98.8 [degF] Idania Petznick DO Work Phone: [facility] 05-22-2025 15:36-0400 Body weight 148.33 kg Idania Petznick DO Work Phone: [facility] 05-22-2025 15:36-0400 Diastolic blood pressure 82 mm[Hg] Idania Petznick DO Work Phone: [facility] 05-22-2025 15:36-0400 Heart rate 76 /min Idania Petznick DO Work Phone: [facility] 05-22-2025 15:36-0400 SaO2% (BldA) [Mass fraction] 95 % Idania Ricketts DO Work Phone: [facility] 05-22-2025 15:36-0400 Systolic blood pressure 148 mm[Hg] Idania Ricketts DO Work Phone: [facility] 05-17-2025 10:31-0400 Body height 182 cm Tyesha Apple DO Work Phone: [facility] 05-17-2025 10:31-0400 Body mass index (BMI) [Ratio] 44.61 kg/m2 Tyesha Apple DO Work Phone: [facility] 05-17-2025 10:31-0400 Body temperature 98.2 [degF] Tyesha Apple DO Work Phone: [facility] 05-17-2025 10:31-0400 Body weight 147.78 kg Tyesha Apple DO Work Phone: [facility] 05-17-2025 10:31-0400 Diastolic blood pressure 96 mm[Hg] Tyesha Apple DO Work Phone: [facility] 05-17-2025 10:31-0400 Heart rate 77 /min Tyesha Apple DO Work Phone: [facility] 05-17-2025 10:31-0400 SaO2% (BldA) [Mass fraction] 96 % Tyesha Apple DO Work Phone: [facility] [employer] [facility] 05-17-2025 10:31-0400 Systolic blood pressure 146 mm[Hg] Tyesha Apple DO Work Phone: [facility] [employer] [facility] 05-10-2025 13:06-0400 Body height 188 cm Kaylee JONES Work Phone: [facility] [employer] [facility] 05-10-2025 13:06-0400 Body mass index (BMI) [Ratio] 42.24 kg/m2 [facility] 05-10-2025 13:06-0400 Body weight 149.23 kg Kaylee JONES [facility] 05-10-2025 13:06-0400 Diastolic blood pressure 104 mm[Hg] Kaylee [facility]ONES [facility] Comment on above: patient states this is his normal BP a nd he didn't take his meds today 05-10-2025 13:06-0400 Heart rate 73 /min Kay[facility]ONES [facility] 05-10-2025 13:06-0400 Respiratory rate 20 /min Kaylee JONES [facility] 05-10-2025 13:06-0400 SaO2% (BldA) [Mass fraction] 99 % Kaylee [facility]ONES [facility] 05-10-2025 13:06-0400 Systolic blood pressure 204 mm[Hg] Kaylee JONES Work Phone: [employer] Comment on above: patient states this is his normal BP a nd he didn't take his meds today 04-26-2025 13:25-0400 Body temperature 98.29 [degF] [employer]el[facility] 04-26-2025 13:25-0400 Diastolic blood pressure 62 mm[Hg] [employer] 04-26-2025 13:25-0400 Heart rate 85 /min [employer] 04-26-2025 13:25-0400 Respiratory rate 16 /min 46elks 04-26-2025 13:25-0400 SaO2% (BldA) [Mass fraction] 97 % [employer] 04-26-2025 13:25-0400 Systolic blood pressure 173 mm[Hg] [employer] 04-24-2025 09:11-0400 Diastolic blood pressure 82 mm[Hg] Idania Ricketts DO Work Phone: [facility] 04-24-2025 09:11-0400 Systolic blood pressure 160 mm[Hg] Idania Petznick DO Work Phone: [facility] 04-24-2025 08:49-0400 Body height 187.96 cm Idania Petznick DO Work Phone: [facility] 04-24-2025 08:49-0400 Body temperature 97.8 [degF] Idania Petznick DO Work Phone: [facility] 04-24-2025 08:49-0400 Body weight 152 kg Idania Petznick DO Work Phone: [facility] 04-24-2025 08:49-0400 Heart rate 69 /min Idania Petznick DO Work Phone: [facility] 04-24-2025 08:49-0400 Respiratory rate 18 /min Idania Petznick DO Work Phone: [facility] 04-24-2025 08:49-0400 SaO2% (BldA) [Mass fraction] 99 % Idnaia Petznick DO Work Phone: [facility] 04-05-2025 09:40-0400 Body height 188 cm [facility] 04-05-2025 09:40-0400 Body mass index (BMI) [Ratio] 43.14 kg/m2 Kaylee JONES Work Phone: [employer] [facility] 04-05-2025 09:40-0400 Body weight 152.41 kg Kaylee JONES Work Phone: [employer] 04-05-2025 09:40-0400 Diastolic blood pressure 91 mm[Hg] [facility] Comment on [facility]: just took am meds 04-05-2025 09:40-0400 Heart rate 69 /min [facility]ONES [facility] 04-05-2025 09:40-0400 Respiratory rate 18 /min Kaylee JONES Work Phone: [facility] [employer] [facility] 04-05-2025 09:40-0400 SaO2% (BldA) [Mass fraction] 98 % [facility]ONES [facility] 04-05-2025 09:40-0400 Systolic blood pressure 204 mm[Hg] Kaylee JONES Work Phone: [facility] Comment on above: just took am meds 03-26-2025 12:30-0400 Diastolic blood pressure 85 mm[Hg] Idania Petznick DO Work Phone: [facility] 03-26-2025 12:30-0400 Heart rate 75 /min Idania Petznick DO Work Phone: [facility] 03-26-2025 12:30-0400 Respiratory rate 20 /min Idania Petznick DO Work Phone: [facility] 03-26-2025 12:30-0400 SaO2% (BldA) [Mass fraction] 98 % Idania Petznick DO Work Phone: [facility] 03-26-2025 12:30-0400 Systolic blood pressure 197 mm[Hg] Idania Petznick DO Work Phone: [facility] 03-26-2025 08:31-0400 Body height 187.96 cm Idania Petznick DO Work Phone: [facility] 03-26-2025 08:31-0400 Body temperature 98 [degF] Idania Petznick DO Work Phone: [facility] 03-26-2025 08:31-0400 Body weight 150 kg Idania Petznick DO Work Phone: [facility] 03-11-2025 11:25-0400 Diastolic blood pressure 99 mm[Hg] Idania Petznick DO Work Phone: [facility] 03-11-2025 11:25-0400 Heart rate 76 /min Idania Petznick DO Work Phone: [facility] 03-11-2025 11:25-0400 Respiratory rate 20 /min Idania Petznick DO Work Phone: [facility] 03-11-2025 11:25-0400 SaO2% (BldA) [Mass fraction] 100 % Idania Petznick DO Work Phone: [facility] 03-11-2025 11:25-0400 Systolic blood pressure 176 mm[Hg] Idania Petznick DO Work Phone: 7(890)149-094980 [place] [address] 03-11-2025 10:29-0400 Body height 187.96 cm Idania Petznick DO Work Phone: 6(134)075-717479 [address] 03-11-2025 10:29-0400 Body temperature 97.7 [degF] Idania Petznick DO Work Phone: [facility] 03-11-2025 10:29-0400 Body weight 145.1 kg Idania Petznick DO Work Phone: [facility] 03-07-2025 15:50-0400 Diastolic blood pressure 86 mm[Hg] Idania Petznick DO Work Phone: [facility] 03-07-2025 15:50-0400 Heart rate 67 /min Idania Petznick DO Work Phone: [facility] 03-07-2025 15:50-0400 SaO2% (BldA) [Mass fraction] 98 % Idania Petznick DO Work Phone: [facility] 03-07-2025 15:50-0400 Systolic blood pressure 158 mm[Hg] Idania Petznick DO Work Phone: [facility] 02-13-2025 08:38-0400 Body height 187.96 cm Idania Petznick DO Work Phone: [facility] 02-13-2025 08:38-0400 Body mass index (BMI) [Ratio] 41.4 kg/m2 Idania Petznick DO Work Phone: [facility] 02-13-2025 08:38-0400 Body weight 146.51 kg Idania Petznick DO Work Phone: [facility] 02-13-2025 08:38-0400 Diastolic blood pressure 80 mm[Hg] Idania Petznick DO Work Phone: [facility] 02-13-2025 08:38-0400 Heart rate 55 /min Idania Petznick DO Work Phone: [facility] 02-13-2025 08:38-0400 SaO2% (BldA) [Mass fraction] 97 % Idania Petznick DO Work Phone: [facility] 02-13-2025 08:38-0400 Systolic blood pressure 148 mm[Hg] Idania Petznick DO Work Phone: [facility] 02-02-2025 11:42-0400 Body height 188 cm Sherley Templeton MD Work Phone: [employer] 02-02-2025 11:42-0400 Body mass index (BMI) [Ratio] 38.52 kg/m2 Sherley Templeton MD Work Phone: [employer] 02-02-2025 11:42-0400 Body weight 136.08 kg Sherley Templeton MD Work Phone: [employer] 02-02-2025 09:06-0400 Body temperature 98.01 [degF] Sherley Templeton MD Work Phone: [employer] 02-02-2025 09:06-0400 Diastolic blood pressure 75 mm[Hg] Sherley Templeton MD Work Phone: [employer] 02-02-2025 09:06-0400 Heart rate 79 /min Sherley Templeton MD Work Phone: [employer] 02-02-2025 09:06-0400 Respiratory rate 18 /min Sherley Templeton MD Work Phone: [facility] 02-02-2025 09:06-0400 SaO2% (BldA) [Mass fraction] 96 % Sherley Templeton MD Work Phone: [facility] 02-02-2025 09:06-0400 Systolic blood pressure 183 mm[Hg] Sherley Templeton MD Work Phone: [facility] 01-02-2025 00:30-0400 Diastolic blood pressure 74 mm[Hg] Idania Petznick DO Work Phone: [facility] 01-02-2025 00:30-0400 Heart rate 74 /min Idania Petznick DO Work Phone: [facility] 01-02-2025 00:30-0400 Respiratory rate 20 /min Idania Petznick DO Work Phone: [facility] 01-02-2025 00:30-0400 SaO2% (BldA) [Mass fraction] 97 % Idania Petznick DO Work Phone: [facility] 01-02-2025 00:30-0400 Systolic blood pressure 157 mm[Hg] Idania Petznick DO Work Phone: [facility] 01-01-2025 21:07-0400 Body height 187.96 cm Idania Petznick DO Work Phone: [facility] 01-01-2025 21:07-0400 Body temperature 98.7 [degF] Idania Petznick DO Work Phone: [facility] 01-01-2025 21:07-0400 Body weight 144.35 kg Idania Petznick DO Work Phone: [facility] 12-29-2024 16:23-0400 Body height 187.96 cm Idania Petznick DO Work Phone: [facility] 12-29-2024 16:23-0400 Body temperature 98 [degF] Idania Petznick DO Work Phone: [facility] 12-29-2024 16:23-0400 Body weight 150 kg Idania Petznick DO Work Phone: [facility] 12-29-2024 16:23-0400 Diastolic blood pressure 93 mm[Hg] Idania Petznick DO Work Phone: [facility] 12-29-2024 16:23-0400 Heart rate 73 /min Idania Petznick DO Work Phone: [facility] 12-29-2024 16:23-0400 Respiratory rate 20 /min Idania Petznick DO Work Phone: [facility] 12-29-2024 16:23-0400 SaO2% (BldA) [Mass fraction] 97 % Idania Petznick DO Work Phone: [facility] 12-29-2024 16:23-0400 Systolic blood pressure 202 mm[Hg] Idania Petznick DO Work Phone: [facility] 12-05-2024 13:42-0400 Body height 188 cm Idania Petznick DO Work Phone: [facility] 12-05-2024 13:42-0400 Body mass index (BMI) [Ratio] 40.7 kg/m2 Idania Petznick DO Work Phone: [facility] 12-05-2024 13:42-0400 Body temperature 98.29 [degF] Idania Petznick DO Work Phone: [facility] 12-05-2024 13:42-0400 Body weight 143.79 kg Idania Petznick DO Work Phone: [facility] 12-05-2024 13:42-0400 Diastolic blood pressure 80 mm[Hg] Idania Petznick DO Work Phone: [facility] 12-05-2024 13:42-0400 Heart rate 82 /min Idania Petznick DO Work Phone: [facility] 12-05-2024 13:42-0400 SaO2% (BldA) [Mass fraction] 100 % Idania Petznick DO Work Phone: [facility] 12-05-2024 13:42-0400 Systolic blood pressure 134 mm[Hg] Idania Petznick DO Work Phone: [facility] 11-27-2024 22:43-0400 Body height 187.96 cm Idania Petznick DO Work Phone: 6(844)368-966180 [place] [address] 11-27-2024 22:43-0400 Body temperature 98.6 [degF] Idania Petznick DO Work Phone: 4(817)886-986379 [address] 11-27-2024 22:43-0400 Body weight 143.7 kg Idania Petznick DO Work Phone: 6(974)948-298479 [address] 11-27-2024 22:43-0400 Diastolic blood pressure 80 mm[Hg] Idania Petznick DO Work Phone: 8(942)805-258380 [place] [address] 11-27-2024 22:43-0400 Heart rate 88 /min Idania Petznick DO Work Phone: 4(336)836-320980 [place] [address] 11-27-2024 22:43-0400 Respiratory rate 16 /min Idania Petznick DO Work Phone: 3(152)053-921880 [place] [address] 11-27-2024 22:43-0400 SaO2% (BldA) [Mass fraction] 96 % Idania Petznick DO Work Phone: 2(445)247-289880 [place] [address] 11-27-2024 22:43-0400 Systolic blood pressure 156 mm[Hg] Idania Petznick DO Work Phone: [facility] 10-29-2024 17:26-0500 Diastolic blood pressure 77 mm[Hg] Idania Petznick DO Work Phone: 2(727)841-688380 [place] [address] 10-29-2024 17:26-0500 Systolic blood pressure 175 mm[Hg] Idania Petznick DO Work Phone: 8(135)980-457679 [address] 10-29-2024 16:38-0500 Body height 187.96 cm Idania Petznick DO Work Phone: [facility] 10-29-2024 16:38-0500 Body temperature 98.2 [degF] Idania Petznick DO Work Phone: [facility] 10-29-2024 16:38-0500 Body weight 141.6 kg Idania Petznick DO Work Phone: [facility] 10-29-2024 16:38-0500 Heart rate 80 /min Idania Petznick DO Work Phone: [facility] 10-29-2024 16:38-0500 Respiratory rate 18 /min Idania Petznick DO Work Phone: [facility] 10-29-2024 16:38-0500 SaO2% (BldA) [Mass fraction] 98 % Idania Petznick DO Work Phone: [facility] 10-02-2024 13:39-0500 Body height 188 cm Idania Petznick DO Work Phone: [facility] 10-02-2024 13:39-0500 Body mass index (BMI) [Ratio] 39.42 kg/m2 Idania Petznick DO Work Phone: [facility] 10-02-2024 13:39-0500 Body temperature 98.4 [degF] Idania Petznick DO Work Phone: [facility] 10-02-2024 13:39-0500 Body weight 139.25 kg Idania Petznick DO Work Phone: [facility] 10-02-2024 13:39-0500 Diastolic blood pressure 64 mm[Hg] Idania Petznick DO Work Phone: [facility] 10-02-2024 13:39-0500 Heart rate 85 /min Idania Petznick DO Work Phone: [facility] 10-02-2024 13:39-0500 SaO2% (BldA) [Mass fraction] 96 % Idania Petznick DO Work Phone: [facility] 10-02-2024 13:39-0500 Systolic blood pressure 110 mm[Hg] Idania Petznick DO Work Phone: [facility] 09-19-2024 10:09-0500 Body height 188 cm Idania Petznick DO Work Phone: [facility] 09-19-2024 10:09-0500 Body mass index (BMI) [Ratio] 41.09 kg/m2 Idania Petznick DO Work Phone: [facility] 09-19-2024 10:09-0500 Body temperature 98.29 [degF] Idania Petznick DO Work Phone: [facility] 09-19-2024 10:09-0500 Body weight 145.15 kg Idania Petznick DO Work Phone: [facility] 09-19-2024 10:09-0500 Diastolic blood pressure 68 mm[Hg] Idania Petznick DO Work Phone: [facility] 09-19-2024 10:09-0500 Heart rate 78 /min Idania Petznick DO Work Phone: [facility] 09-19-2024 10:09-0500 SaO2% (BldA) [Mass fraction] 95 % Idania Petznick DO Work Phone: [facility] 09-19-2024 10:09-0500 Systolic blood pressure 122 mm[Hg] Idania Petznick DO Work Phone: [facility] 09-04-2024 13:36-0500 Body height 188 cm Idania Petznick DO Work Phone: [facility] 09-04-2024 13:36-0500 Body mass index (BMI) [Ratio] 40.06 kg/m2 Idania Petznick DO Work Phone: [facility] 09-04-2024 13:36-0500 Body temperature 98.4 [degF] Idania Petznick DO Work Phone: [facility] 09-04-2024 13:36-0500 Body weight 141.52 kg Idania Petznick DO Work Phone: 9(074)324-569854 [place] [address] 09-04-2024 13:36-0500 Diastolic blood pressure 62 mm[Hg] Idania Petznick DO Work Phone: 9(792)939-876324 [place] [address] 09-04-2024 13:36-0500 Heart rate 81 /min Idania Petznick DO Work Phone: 8(586)951-571924 [place] [address] 09-04-2024 13:36-0500 SaO2% (BldA) [Mass fraction] 95 % Idania Petznick DO Work Phone: 0(868)057-739424 [place] [address] 09-04-2024 13:36-0500 Systolic blood pressure 124 mm[Hg] Idania Petznick DO Work Phone: 8(352)803-090024 [place] [address] 08-29-2024 01:08-0500 Body temperature 98 [degF] Idania Petznick DO Work Phone: 3(562)553-489074 [place] [address] 08-29-2024 01:08-0500 Diastolic blood pressure 68 mm[Hg] Idania Petznick DO Work Phone: 8(450)582-391074 [place] [address] 08-29-2024 01:08-0500 Heart rate 90 /min Idania Petznick DO Work Phone: 6(400)895-649674 [place] [address] 08-29-2024 01:08-0500 Respiratory rate 18 /min Idania Petznick DO Work Phone: 6(444)503-348674 [place] [address] 08-29-2024 01:08-0500 SaO2% (BldA) [Mass fraction] 95 % Idania Petznick DO Work Phone: 8(549)675-957474 [place] [address] 08-29-2024 01:08-0500 Systolic blood pressure 114 mm[Hg] Idania Petznick DO Work Phone: 1(366)842-780174 [place] [address] 08-28-2024 22:37-0500 Body height 187.96 cm Idania Petznick DO Work Phone: 9(152)723-217274 [place] [address] 08-28-2024 22:37-0500 Body weight 144.6 kg Idania Petznick DO Work Phone: 5(102)029-867574 [place] [address] 08-07-2024 13:53-0500 Body height 188 cm Idania Petznick DO Work Phone: [facility] 08-07-2024 13:53-0500 Body mass index (BMI) [Ratio] 40.19 kg/m2 Idania Petznick DO Work Phone: [facility] 08-07-2024 13:53-0500 Body temperature 96.91 [degF] Idania Petznick DO Work Phone: [facility] 08-07-2024 13:53-0500 Body weight 141.98 kg Idania Petznick DO Work Phone: [facility] 08-07-2024 13:53-0500 Diastolic blood pressure 78 mm[Hg] Idania Petznick DO Work Phone: [facility] 08-07-2024 13:53-0500 Heart rate 83 /min Idania Petznick DO Work Phone: [facility] 08-07-2024 13:53-0500 SaO2% (BldA) [Mass fraction] 91 % Idania Petznick DO Work Phone: [facility] 08-07-2024 13:53-0500 Systolic blood pressure 134 mm[Hg] Idania Petznick DO Work Phone: [facility] 05-16-2024 09:17-0400 Body height 188 cm Idania Petznick DO Work Phone: [facility] 05-16-2024 09:17-0400 Body mass index (BMI) [Ratio] 40.37 kg/m2 Idania Petznick DO Work Phone: [facility] 05-16-2024 09:17-0400 Body temperature 96.91 [degF] Idania Petznick DO Work Phone: [facility] 05-16-2024 09:17-0400 Body weight 142.61 kg Idania Petznick DO Work Phone: [facility] 05-16-2024 09:17-0400 Diastolic blood pressure 62 mm[Hg] Idania Petznick DO Work Phone: 4(665)459-319939 [address] 05-16-2024 09:17-0400 Heart rate 81 /min Idania Petznick DO Work Phone: [facility] 05-16-2024 09:17-0400 SaO2% (BldA) [Mass fraction] 94 % Idania Petznick DO Work Phone: [facility] 05-16-2024 09:17-0400 Systolic blood pressure 154 mm[Hg] Idania Petznick DO Work Phone: [facility] 05-15-2024 14:51-0400 Body height 187.96 cm DO Idania Petznick Work Phone: 4(431)965-355379 [address] 05-15-2024 14:51-0400 Body temperature 98.5 [degF] DO Idania Petznick Work Phone: 3(584)794-560574 [place] [address] 05-15-2024 14:51-0400 Body weight 142.25 kg DO Idania Petznick Work Phone: 0(098)972-123974 [place] [address] 05-15-2024 14:51-0400 Diastolic blood pressure 83 mm[Hg] DO Idania Petznick Work Phone: 7(633)558-182374 [place] [address] 05-15-2024 14:51-0400 Heart rate 64 /min DO Idania Petznick Work Phone: 4(296)582-839779 [address] 05-15-2024 14:51-0400 Respiratory rate 21 /min DO Idania Petznick Work Phone: 9(547)920-730874 [place] [address] 05-15-2024 14:51-0400 SaO2% (BldA) [Mass fraction] 97 % DO Idania Petznick Work Phone: 3(571)368-419979 [address] 05-15-2024 14:51-0400 Systolic blood pressure 183 mm[Hg] DO Idania Petznick Work Phone: 0(320)926-072074 [place] [address] 02-04-2024 12:00-0400 Diastolic blood pressure 73 mm[Hg] DO Idania Petznick Work Phone: 8(633)959-231879 [address] 02-04-2024 12:00-0400 Heart rate 65 /min DO Idania Petznick Work Phone: [facility] 02-04-2024 12:00-0400 Respiratory rate 16 /min DO Idania Petznick Work Phone: 1(536)953-704879 [address] 02-04-2024 12:00-0400 SaO2% (BldA) [Mass fraction] 96 % DO Idania Petznick Work Phone: 5(731)271-113879 [address] 02-04-2024 12:00-0400 Systolic blood pressure 133 mm[Hg] DO Idania Petznick Work Phone: 8(151)246-176979 [address] 02-04-2024 10:38-0400 Body height 187.96 cm DO Idania Petznick Work Phone: 3(827)878-953074 [place] [address] 02-04-2024 10:38-0400 Body temperature 98.5 [degF] DO Idania Petznick Work Phone: 8(362)645-226780 [place] [address] 02-04-2024 10:38-0400 Body weight 142.88 kg DO Idania Petznick Work Phone: 0(208)123-927880 [place] [address] 01-03-2024 09:34-0400 Body height 187.96 cm DO Idania Petznick Work Phone: 6(407)337-927679 [address] 01-03-2024 09:34-0400 Body mass index (BMI) [Ratio] 40.4 kg/m2 DO Idania Petznick Work Phone: 8(628)684-641480 [place] [address] 01-03-2024 09:34-0400 Body temperature 97.8 [degF] DO Idania Petznick Work Phone: 1(962)645-491680 [place] [address] 01-03-2024 09:34-0400 Body weight 142.88 kg DO Idania Petznick Work Phone: [facility] 01-03-2024 09:34-0400 Diastolic blood pressure 72 mm[Hg] DO Idania Petznick Work Phone: 6(254)890-862280 [place] [address] 01-03-2024 09:34-0400 Heart rate 76 /min DO Idania Petznick Work Phone: [facility] 01-03-2024 09:34-0400 Respiratory rate 16 /min DO Idania Petznick Work Phone: [facility] 01-03-2024 09:34-0400 SaO2% (BldA) [Mass fraction] 98 % DO Idania Petznick Work Phone: [facility] 01-03-2024 09:34-0400 Systolic blood pressure 124 mm[Hg] DO Idania Petznick Work Phone: 1(745)110-855679 [address] 12-24-2023 13:15-0400 Diastolic blood pressure 73 mm[Hg] DO Idania Petznick Work Phone: 2(438)609-841980 [place] [address] 12-24-2023 13:15-0400 Heart rate 76 /min DO Idania Petznick Work Phone: 8(962)582-705280 [place] [address] 12-24-2023 13:15-0400 Respiratory rate 16 /min DO Idania Petznick Work Phone: 9(127)536-439980 [place] [address] 12-24-2023 13:15-0400 SaO2% (BldA) [Mass fraction] 97 % DO Idania Petznick Work Phone: [facility] 12-24-2023 13:15-0400 Systolic blood pressure 135 mm[Hg] DO Idania Petznick Work Phone: 0(780)843-367280 [place] [address] 12-24-2023 11:05-0400 Body height 187.96 cm DO Idania Petznick Work Phone: [facility] 12-24-2023 11:05-0400 Body temperature 97.5 [degF] DO Idania Petznick Work Phone: [facility] 12-24-2023 11:05-0400 Body weight 142.88 kg DO Idania Petznick Work Phone: [facility] 12-06-2023 12:01-0400 Body height 187.96 cm DO Idania Petznick Work Phone: 7(117)164-547774 [place] [address] 12-06-2023 12:01-0400 Body mass index (BMI) [Ratio] 42 kg/m2 DO Idania Petznick Work Phone: 1(589)814-520874 [place] [address] 12-06-2023 12:01-0400 Body temperature 98 [degF] DO Idania Petznick Work Phone: 8(733)878-601174 [place] [address] 12-06-2023 12:01-0400 Body weight 148.77 kg DO Idania Petznick Work Phone: 0(351)235-132074 [place] [address] 12-06-2023 12:01-0400 Diastolic blood pressure 78 mm[Hg] DO Idania Petznick Work Phone: 5(648)251-576374 [place] [address] 12-06-2023 12:01-0400 Heart rate 82 /min DO Idania Petznick Work Phone: 8(302)167-468874 [place] [address] 12-06-2023 12:01-0400 SaO2% (BldA) [Mass fraction] 97 % DO Idania Petznick Work Phone: 8(151)151-381474 [place] [address] 12-06-2023 12:01-0400 Systolic blood pressure 132 mm[Hg] DO Idania Petznick Work Phone: 1(587)206-617174 [place] [address] 11-25-2023 14:43-0400 Heart rate 79 /min DO Idania Petznick Work Phone: 7(749)890-357374 [place] [address] 11-25-2023 14:36-0400 Body height 187.96 cm DO Idania Petznick Work Phone: 5(611)447-964774 [place] [address] 11-25-2023 14:36-0400 Body temperature 97.8 [degF] DO Idania Petznick Work Phone: 7(991)693-991274 [place] [address] 11-25-2023 14:36-0400 Body weight 148.7 kg DO Idania Petznick Work Phone: 5(480)102-857074 [place] [address] 11-25-2023 14:36-0400 Diastolic blood pressure 70 mm[Hg] DO Idania Petznick Work Phone: 0(365)500-194674 [place] [address] 11-25-2023 14:36-0400 Respiratory rate 18 /min DO Idania Petznick Work Phone: [facility] 11-25-2023 14:36-0400 SaO2% (BldA) [Mass fraction] 93 % DO Idania Petznick Work Phone: [facility] 11-25-2023 14:36-0400 Systolic blood pressure 169 mm[Hg] DO Idania Petznick Work Phone: [facility] 11-23-2023 14:47-0400 Body temperature 98 [degF] DO Idania Petznick Work Phone: 2(787)684-963179 [address] 11-23-2023 14:47-0400 Diastolic blood pressure 79 mm[Hg] DO Idania Petznick Work Phone: 3(049)137-990679 [address] 11-23-2023 14:47-0400 Heart rate 77 /min DO Idania Petznick Work Phone: [facility] 11-23-2023 14:47-0400 Respiratory rate 18 /min DO Idania Petznick Work Phone: [facility] 11-23-2023 14:47-0400 SaO2% (BldA) [Mass fraction] 98 % DO Idania Petznick Work Phone: [facility] 11-23-2023 14:47-0400 Systolic blood pressure 172 mm[Hg] DO Idania Petznick Work Phone: [facility] 11-23-2023 05:54-0400 Body weight 146.2 kg DO Idania Petznick Work Phone: [facility] 11-21-2023 11:53-0400 Body height 187.96 cm DO Idaina Petznick Work Phone: [facility] 11-20-2023 21:43-0400 Body temperature 97.7 [degF] DO Idania Petznick Work Phone: [facility] 11-20-2023 21:30-0400 Diastolic blood pressure 76 mm[Hg] DO Idania Petznick Work Phone: [facility] 11-20-2023 21:30-0400 Heart rate 90 /min DO Idania Petznick Work Phone: [facility] 11-20-2023 21:30-0400 Respiratory rate 18 /min DO Idania Petznick Work Phone: [facility] 11-20-2023 21:30-0400 SaO2% (BldA) [Mass fraction] 95 % DO Idania Petznick Work Phone: [facility] 11-20-2023 21:30-0400 Systolic blood pressure 121 mm[Hg] DO Idania Petznick Work Phone: [facility] 11-20-2023 18:41-0400 Body height 187.96 cm DO Idania Petznick Work Phone: [facility] 11-20-2023 18:41-0400 Body weight 147.25 kg DO Idania Petznick Work Phone: [facility] 11-08-2023 09:45-0500 Body height 187.96 cm DO Idania Petznick Work Phone: [facility] 11-08-2023 09:45-0500 Body mass index (BMI) [Ratio] 41.1 kg/m2 DO Idania Petznick Work Phone: [facility] 11-08-2023 09:45-0500 Body temperature 97.1 [degF] DO Idania Petznick Work Phone: [facility] 11-08-2023 09:45-0500 Body weight 145.14 kg DO Idania Petznick Work Phone: [facility] 11-08-2023 09:45-0500 Diastolic blood pressure 70 mm[Hg] DO Idania Petznick Work Phone: [facility] 11-08-2023 09:45-0500 Heart rate 78 /min DO Idania Petznick Work Phone: [facility] 11-08-2023 09:45-0500 SaO2% (BldA) [Mass fraction] 92 % DO Idania Petznick Work Phone: [facility] 11-08-2023 09:45-0500 Systolic blood pressure 160 mm[Hg] DO Idania Petznick Work Phone: [facility] 10-27-2023 14:48-0500 Diastolic blood pressure 67 mm[Hg] DO Idania Petznick Work Phone: [facility] 10-27-2023 14:48-0500 Heart rate 83 /min DO Idania Petznick Work Phone: [facility] 10-27-2023 14:48-0500 Respiratory rate 16 /min DO Idania Petznick Work Phone: [facility] 10-27-2023 14:48-0500 SaO2% (BldA) [Mass fraction] 99 % DO Idania Petznick Work Phone: [facility] 10-27-2023 14:48-0500 Systolic blood pressure 142 mm[Hg] DO Idania Petznick Work Phone: [facility] 10-27-2023 13:12-0500 Body height 187.96 cm DO Idania Petznick Work Phone: [facility] 10-27-2023 13:12-0500 Body temperature 98 [degF] DO Idania Petznick Work Phone: [facility] 10-27-2023 13:12-0500 Body weight 154.22 kg DO Idania Petznick Work Phone: [facility] 10-13-2023 11:02-0500 Body height 188 cm Flakito High DO Work Phone: [facility] 10-13-2023 11:02-0500 Body mass index (BMI) [Ratio] 43.65 kg/m2 Flakito High DO Work Phone: [facility] 10-13-2023 11:02-0500 Body weight 154.22 kg Flakito High DO Work Phone: [facility] 10-06-2023 14:18-0500 Diastolic blood pressure 67 mm[Hg] DO Idania Petznick Work Phone: [facility] 10-06-2023 14:18-0500 Heart rate 71 /min DO Idania Petznick Work Phone: [facility] 10-06-2023 14:18-0500 Respiratory rate 16 /min DO Idania Petznick Work Phone: [facility] 10-06-2023 14:18-0500 SaO2% (BldA) [Mass fraction] 96 % DO Idania Petznick Work Phone: [facility] 10-06-2023 14:18-0500 Systolic blood pressure 141 mm[Hg] DO Idania Petznick Work Phone: [facility] 10-06-2023 13:05-0500 Inhaled oxygen flow rate 6 L/min DO Idania Petznick Work Phone: [facility] 10-06-2023 12:55-0500 Body temperature 97.2 [degF] DO Idania Petznick Work Phone: [facility] 10-06-2023 09:51-0500 Body height 187.96 cm DO Idania Petznick Work Phone: [facility] 10-06-2023 09:51-0500 Body mass index (BMI) [Ratio] 44.3 kg/m2 DO Idania Petznick Work Phone: [facility] 10-06-2023 09:51-0500 Body weight 156.48 kg DO Idania Petznick Work Phone: [facility] 10-04-2023 10:45-0500 Body height 187.96 cm Ramirez Jean Other [facility] 10-04-2023 10:45-0500 Body mass index (BMI) [Ratio] 44.29 kg/m2 Ramirez Jean Other [facility] [employer] Other 10-04-2023 10:45-0500 Body temperature 98 [degF] Ramirez Mylesowen Other [facility] [employer] Other 10-04-2023 10:45-0500 Body weight 156.49 kg Ramirez Mylesr Other [facility] [employer] Other 10-04-2023 10:45-0500 Body weight 156.48 kg DO Idania Petznick Work Phone: [facility] 10-04-2023 10:45-0500 Diastolic blood pressure 72 mm[Hg] Ramirez Payaladelinabrenna Other [facility] 10-04-2023 10:45-0500 SaO2% (BldA) [Mass fraction] 93 % Ramirez Mylesowen Other [facility] [employer] Other 10-04-2023 10:45-0500 Systolic blood pressure 150 mm[Hg] Ramirez Jacobbrenna Other [facility] 09-26-2023 00:38-0500 Diastolic blood pressure 69 mm[Hg] DO Idania Petznick Work Phone: [facility] 09-26-2023 00:38-0500 Heart rate 82 /min DO Idania Petznick Work Phone: [facility] 09-26-2023 00:38-0500 Respiratory rate 20 /min DO Idania Petznick Work Phone: [facility] 09-26-2023 00:38-0500 SaO2% (BldA) [Mass fraction] 96 % DO Idania Petznick Work Phone: [facility] 09-26-2023 00:38-0500 Systolic blood pressure 138 mm[Hg] DO Idania Petznick Work Phone: [facility] 09-25-2023 19:04-0500 Body height 184.15 cm DO Idania Petznick Work Phone: [facility] 09-25-2023 19:04-0500 Body temperature 97.9 [degF] DO Idania Petznick Work Phone: [facility] 09-25-2023 19:04-0500 Body weight 158 kg DO Idania Petznick Work Phone: 0(557)342-632280 [place] [address] 09-16-2023 16:09-0500 Diastolic blood pressure 62 mm[Hg] DO Idania Petznick Work Phone: [facility] 09-16-2023 16:09-0500 Heart rate 68 /min DO Idania Petznick Work Phone: [facility] 09-16-2023 16:09-0500 Respiratory rate 16 /min DO Idania Petznick Work Phone: [facility] 09-16-2023 16:09-0500 SaO2% (BldA) [Mass fraction] 94 % DO Idania Petznick Work Phone: [facility] 09-16-2023 16:09-0500 Systolic blood pressure 119 mm[Hg] DO Idania Petznick Work Phone: [facility] 09-16-2023 13:54-0500 Body temperature 97.9 [degF] DO Idania Petznick Work Phone: [facility] 09-16-2023 13:24-0500 Inhaled oxygen flow rate 10 L/min DO Idania Petznick Work Phone: [facility] 09-16-2023 11:32-0500 Body mass index (BMI) [Ratio] 45.9 kg/m2 DO Idania Petznick Work Phone: [facility] 09-16-2023 11:26-0500 Body height 185.42 cm DO Idania Petznick Work Phone: [facility] 09-16-2023 11:26-0500 Body weight 157.85 kg DO Idania Petznick Work Phone: [facility] 06-16-2023 11:00-0400 Body height 187.96 cm Tondra Mapus Other [employer] Other 06-16-2023 11:00-0400 Body mass index (BMI) [Ratio] 43.93 kg/m2 Tondra Mapus Other [employer] Other 06-16-2023 11:00-0400 Body weight 155.22 kg Tondra Mapus Other [employer] Other 06-16-2023 11:00-0400 Diastolic blood pressure 82 mm[Hg] Tondra Mapus Other [employer] Other 06-16-2023 11:00-0400 Respiratory rate 18 /min Tondra Mapus Other [employer] Other 06-16-2023 11:00-0400 SaO2% (BldA) [Mass fraction] 98 % Tondra Mapus Other [employer] Other 06-16-2023 11:00-0400 Systolic blood pressure 160 mm[Hg] Tondra Mapus Other [employer] Other 11-07-2022 16:00-0500 Body temperature 97.8 [degF] DO Idania Petznick Work Phone: [facility] 11-07-2022 16:00-0500 Diastolic blood pressure 75 mm[Hg] DO Idania Petznick Work Phone: [facility] 11-07-2022 16:00-0500 Heart rate 86 /min DO Idania Petznick Work Phone: [facility] 11-07-2022 16:00-0500 Respiratory rate 16 /min DO Idania Petznick Work Phone: [facility] 11-07-2022 16:00-0500 SaO2% (BldA) [Mass fraction] 96 % DO Idania Petznick Work Phone: [facility] 11-07-2022 16:00-0500 Systolic blood pressure 162 mm[Hg] DO Idania Petznick Work Phone: [facility] 11-07-2022 06:00-0500 Body weight 144.9 kg DO Idania Petznick Work Phone: [facility] 11-06-2022 14:55-0500 Inhaled oxygen flow rate 3 L/min DO Idania Petznick Work Phone: [facility] 11-06-2022 13:24-0500 Body height 187.96 cm DO Idania Petznick Work Phone: [facility] 11-06-2022 13:24-0500 Body mass index (BMI) [Ratio] 41 kg/m2 DO Idania Petznick Work Phone: [facility] 11-04-2022 20:00-0500 Diastolic blood pressure 94 mm[Hg] DO Idania Petznick Work Phone: [facility] 11-04-2022 20:00-0500 Heart rate 81 /min DO Idania Petznick Work Phone: [facility] 11-04-2022 20:00-0500 Respiratory rate 20 /min DO Idania Petznick Work Phone: [facility] 11-04-2022 20:00-0500 SaO2% (BldA) [Mass fraction] 97 % DO Idania Petznick Work Phone: 2(092)279-166479 [address] 11-04-2022 20:00-0500 Systolic blood pressure 186 mm[Hg] DO Idania Petznick Work Phone: 9(666)723-933574 [place] [address] 11-04-2022 13:57-0500 Body height 187.96 cm DO Idania Petznick Work Phone: 4(723)086-003774 [place] [address] 11-04-2022 13:57-0500 Body temperature 99.1 [degF] DO Idania Petznick Work Phone: 2(661)456-181874 [place] [address] 11-04-2022 13:57-0500 Body weight 145 kg DO Idania Petznick Work Phone: 8(172)069-337874 [place] [address] 11-01-2022 23:00-0500 Diastolic blood pressure 70 mm[Hg] DO Idania Petznick Work Phone: 3(100)186-243574 [place] [address] 11-01-2022 23:00-0500 Heart rate 80 /min DO Idania Petznick Work Phone: 5(997)872-886974 [place] [address] 11-01-2022 23:00-0500 Respiratory rate 20 /min DO Idania Petznick Work Phone: 8(171)831-561274 [place] [address] 11-01-2022 23:00-0500 SaO2% (BldA) [Mass fraction] 98 % DO Idania Petznick Work Phone: 4(701)376-015274 [place] [address] 11-01-2022 23:00-0500 Systolic blood pressure 162 mm[Hg] DO Idania Petznick Work Phone: 3(816)154-130174 [place] [address] 11-01-2022 21:02-0500 Body height 187.96 cm DO Idania Petznick Work Phone: 5(923)602-996274 [place] [address] 11-01-2022 21:02-0500 Body temperature 98 [degF] DO Idania Petznick Work Phone: 0(479)193-508074 [place] [address] 11-01-2022 21:02-0500 Body weight 149.7 kg DO Idania Petznick Work Phone: 3(220)170-891974 [place] [address] 10-10-2022 05:23-0500 Diastolic blood pressure 81 mm[Hg] DO Idania Petznick Work Phone: [facility] 10-10-2022 05:23-0500 Heart rate 92 /min DO Idania Petznick Work Phone: [facility] 10-10-2022 05:23-0500 Respiratory rate 20 /min DO Idania Petznick Work Phone: [facility] 10-10-2022 05:23-0500 SaO2% (BldA) [Mass fraction] 98 % DO Idania Petznick Work Phone: [facility] 10-10-2022 05:23-0500 Systolic blood pressure 165 mm[Hg] DO Idania Petznick Work Phone: [facility] 10-10-2022 04:13-0500 Body height 187.96 cm DO Idania Petznick Work Phone: [facility] 10-10-2022 04:13-0500 Body temperature 97.1 [degF] DO Idania Petznick Work Phone: [facility] 10-10-2022 04:13-0500 Body weight 152 kg DO Idania Petznick Work Phone: [facility] 09-23-2022 04:15-0500 Diastolic blood pressure 89 mm[Hg] DO Idania Petznick Work Phone: [facility] 09-23-2022 04:15-0500 Heart rate 72 /min DO Idania Petznick Work Phone: [facility] 09-23-2022 04:15-0500 Respiratory rate 18 /min DO Idania Petznick Work Phone: [facility] 09-23-2022 04:15-0500 SaO2% (BldA) [Mass fraction] 98 % DO Idania Petznick Work Phone: [facility] 09-23-2022 04:15-0500 Systolic blood pressure 156 mm[Hg] DO Idania Petznick Work Phone: [facility] 09-22-2022 22:41-0500 Body height 187.96 cm DO Idania Petznick Work Phone: [facility] 09-22-2022 22:41-0500 Body temperature 98.2 [degF] DO Idania Petznick Work Phone: [facility] 09-22-2022 22:41-0500 Body weight 144.75 kg DO Idania Petznick Work Phone: [facility] 08-12-2022 16:00-0500 Body height 187.96 cm Ada Moody Other [employer] Other 08-12-2022 16:00-0500 Body mass index (BMI) [Ratio] 40.36 kg/m2 Ada Moody Other [employer] Other 08-12-2022 16:00-0500 Body temperature 97.7 [degF] Ada Moody Other [employer] Other 08-12-2022 16:00-0500 Body weight 142.61 kg Ada Moody Other [employer] Other 08-12-2022 16:00-0500 Diastolic blood pressure 62 mm[Hg] Ada Moody Other [employer] Other 08-12-2022 16:00-0500 Respiratory rate 18 /min Ada Moody Other [employer] Other 08-12-2022 16:00-0500 SaO2% (BldA) [Mass fraction] 96 % Ada Moody Other [employer] Other 08-12-2022 16:00-0500 Systolic blood pressure 138 mm[Hg] Ada Uriostegui Other [facility] [employer] Other 07-29-2022 02:30-0500 Diastolic blood pressure 75 mm[Hg] DO Idania Petznick Work Phone: [facility] 07-29-2022 02:30-0500 Heart rate 80 /min DO Idania Petznick Work Phone: [facility] 07-29-2022 02:30-0500 Respiratory rate 20 /min DO Idania Petznick Work Phone: [facility] 07-29-2022 02:30-0500 SaO2% (BldA) [Mass fraction] 94 % DO Idania Petznick Work Phone: [facility] 07-29-2022 02:30-0500 Systolic blood pressure 121 mm[Hg] DO Idania Petznick Work Phone: [facility] 07-29-2022 00:02-0500 Body height 185.42 cm DO Idania Petznick Work Phone: [facility] 07-29-2022 00:02-0500 Body temperature 97.6 [degF] DO Idania Petznick Work Phone: [facility] 07-29-2022 00:02-0500 Body weight 143.7 kg DO Idania Petznick Work Phone: [facility] 07-17-2022 13:13-0500 Body height 182.88 cm [facility] [employer] 07-17-2022 13:13-0500 Body mass index (BMI) [Ratio] 42.31 kg/m2 [employer] [employer] 07-17-2022 13:13-0500 Body surface area Derived from formula 2.68 m2 [employer] [employer] 07-17-2022 13:13-0500 Body weight 141.52 kg [facility] [employer] 07-17-2022 13:13-0500 Body weight 0.1 {percentile} [employer] [employer] 07-17-2022 13:13-0500 Diastolic blood pressure 70 mm[Hg] [facility] [employer] 07-17-2022 13:13-0500 Heart rate 64 /min [employer] [employer] 07-17-2022 13:13-0500 Systolic blood pressure 130 mm[Hg] [employer] [employer] 05-20-2022 17:20-0400 Body height 187.96 cm Ada Moody Other [employer] Other 05-20-2022 17:20-0400 Body mass index (BMI) [Ratio] 39.77 kg/m2 Ada Moody Other [employer] Other 05-20-2022 17:20-0400 Body temperature 96.4 [degF] Ada Moody Other [employer] Other 05-20-2022 17:20-0400 Body weight 140.53 kg Ada Moody Other [employer] Other 05-20-2022 17:20-0400 Diastolic blood pressure 72 mm[Hg] Ada Moody Other [employer] Other 05-20-2022 17:20-0400 Respiratory rate 18 /min Ada Moody Other [employer] Other 05-20-2022 17:20-0400 SaO2% (BldA) [Mass fraction] 97 % Ada Moody Other [employer] Other 05-20-2022 17:20-0400 Systolic blood pressure 150 mm[Hg] Ada Moody Other [employer] Other 03-12-2022 17:20-0400 Body height 187.96 cm Ada Moody Other [employer] Other 03-12-2022 17:20-0400 Body mass index (BMI) [Ratio] 38.68 kg/m2 Ada Moody Other [employer] Other 03-12-2022 17:20-0400 Body temperature 96.4 [degF] Ada Moody Other [employer] Other 03-12-2022 17:20-0400 Body weight 136.67 kg Ada Moody Other [employer] Other 03-12-2022 17:20-0400 Diastolic blood pressure 88 mm[Hg] Ada Moody Other [employer] Other 03-12-2022 17:20-0400 Respiratory rate 18 /min Ada Moody Other [employer] Other 03-12-2022 17:20-0400 SaO2% (BldA) [Mass fraction] 98 % Ada Moody Other [employer] Other 03-12-2022 17:20-0400 Systolic blood pressure 160 mm[Hg] Ada Moody Other [employer] Other 12-03-2021 17:20-0400 Body height 248.92 cm Ada Moody Other [employer] Other 12-03-2021 17:20-0400 Body mass index (BMI) [Ratio] 22.48 kg/m2 Ada Moody Other [employer] Other 12-03-2021 17:20-0400 Body temperature 96.7 [degF] Ada Moody Other [employer] Other 12-03-2021 17:20-0400 Body weight 139.3 kg Ada Moody Other [employer] Other 12-03-2021 17:20-0400 Diastolic blood pressure 90 mm[Hg] Ada Moody Other [employer] Other 12-03-2021 17:20-0400 Respiratory rate 18 /min Ada Moody Other [employer] Other 12-03-2021 17:20-0400 SaO2% (BldA) [Mass fraction] 96 % Ada Moody Other [employer] Other 12-03-2021 17:20-0400 Systolic blood pressure 160 mm[Hg] Ada Moody Other [employer] Other Encounters Encounter Date Encounter Type Care Provider Facility Start: 06-13-2025 End: 06-13-2025 Telephone encounter Estella Kingston CNA [facility] Comment on above: Depakote Dosage Incr ease Start: 06-08-2025 End: 06-08-2025 ambulatory ALEC JACOBSON [facility] Start: 06-07-2025 End: 06-07-2025 External Result Encounter Idania Maeve Ricketts DO Work Phone: [facility] External Department Unsolicited Start: 06-07-2025 End: 06-07-2025 External Result Encounter Idania M Marilin CALABRESE Work Phone: [facility] External Department Unsolicited Start: 06-07-2025 ambulatory TYESHA APPLE [facility] Start: 06-01-2025 End: 06-05-2025 Telephone encounter Millie Yepez [facility] Start: 05-28-2025 End: 05-28-2025 Telephone encounter Sarai Esquivel CNA [facility] Start: 05-25-2025 End: 05-25-2025 Emergency department patient visit TYESHA APPLE [facility] Start: 05-24-2025 End: 05-24-2025 ambulatory HEAVENLY [facility] Start: 05-22-2025 End: 05-22-2025 Patient encounter procedure Idania Maeve Ricketts DO Work Phone: [facility] Comment on above: Medicare annual well ness visit, subsequent (Primary Dx); Type 2 diabetes [...] deficiency anemia; Screening for prostate cancer; Neuropathy Start: 05-22-2025 End: 05-22-2025 ambulatory IDANIA RICKETTS Not Available Start: 05-18-2025 End: 05-18-2025 [facility] Start: 05-17-2025 End: 05-17-2025 Office outpatient visit 15 minutes Tyesha Apple DO Work Phone: [facility] Comment on above: Neuropathic pain of both feet (Primary Dx); Obesity, morbid ([facility]-HCC); ESRD (end stage renal disease) on dialysis ([facility]-H[facility]) Start: 05-17-2025 End: 05-17-2025 ambulatory TYESHA Joshua [facility] Start: 05-16-2025 End: 05-16-2025 Refill Idania Ricketts DO Work Phone: [place] [address] Comment on above: 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 Start: 05-10-2025 End: 05-10-2025 Office outpatient visit 25 minutes Kaylee JONES Work Phone: [facility] Comment on above: Spinal stenosis of l umbar region with neurogenic claudication (Primary Dx); Diabetic peripheral neuropathy ([facility]) Start: 05-10-2025 End: 05-10-2025 ambulatory KAYLEE MESA [facility] Start: 04-27-2025 End: 04-27-2025 ambulatory ALEC JACOBSON [facility] Start: 04-26-2025 End: 04-26-2025 Emergency department patient visit Violeta [facility] Comment on above: Chronic foot pain, u nspecified laterality (Primary Dx) Start: 04-24-2025 End: 04-24-2025 Emergency department patient visit Idania Ricketts DO Work Phone: -Emergency Room Work Phone: Start: 04-10-2025 End: 04-10-2025 Emergency department [facility] Start: 04-06-2025 End: 04-27-2025 Telephone encounter Marielos Abreu RN [facility] Comment on above: Medication Start: 04-05-2025 End: 04-05-2025 Office outpatient new 45 minutes Kaylee S Yuli PA Work Phone: [facility] Comment on above: Spinal stenosis of l umbar region with neurogenic claudication (Primary Dx); Diabetic peripheral neuropathy (CMS-HCC) Start: 04-05-2025 End: 04-05-2025 ambulatory KAYLEE S NISAFIA [facility] Start: 03-28-2025 End: 03-29-2025 Emergency department patient [facility] Start: 03-26-2025 End: 03-26-2025 Emergency department patient visit Idania Ricketts DO Work Phone: -Emergency Room Work Phone: Start: 03-11-2025 End: 03-11-2025 Emergency department patient visit Idania Ricketts DO Work Phone: -Emergency Room Work Phone: Start: 03-07-2025 End: 03-07-2025 ambulatory Idania Ricketts DO Work Phone: [facility] Work Phone: Start: 03-07-2025 End: 03-07-2025 Patient encounter procedure Jey Ramos MD -[facility] Work Phone: Start: 03-01-2025 End: 03-01-2025 Refill Idania Ricketts DO Work Phone: [facility] 230 Comment on above: 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) Start: 02-20-2025 Non-patient / Non-visit Nuria Márquez -[facility] Work Phone: Start: 02-13-2025 End: 02-13-2025 ambulatory Idania Petznick DO Work Phone: [facility] Work Phone: Start: 02-13-2025 End: 02-13-2025 Patient encounter procedure Idania Petznick DO Work Phone: [facility] Work Phone: Start: 02-02-2025 End: 02-02-2025 Emergency department patient visit Delano Benavides [facility] Start: 02-02-2025 End: 02-02-2025 Emergency department patient visit Sherley Templeton MD Work Phone: [facility] Comment on above: Idiopathic periphera l neuropathy (Primary Dx); End stage renal disease (HCC); Hyperkalemia Start: 01-01-2025 End: 01-02-2025 Emergency department patient visit Idania Monahanznick DO Work Phone: [facility] Work Phone: Start: 12-30-2024 End: 12-30-2024 ambulatory [facility] Start: 12-29-2024 End: 12-29-2024 Emergency department patient visit Idania Petznick DO Work Phone: [facility] Work Phone: Start: 12-27-2024 End: 12-27-2024 Emergency department patient visit [facility] Start: 12-21-2024 ambulatory CHONG COOLEY [facility] Start: 12-21-2024 ambulatory HEAVENLY BUENO [facility] Start: 12-12-2024 End: 12-12-2024 ambulatory [facility] Start: 12-12-2024 End: 12-12-2024 ambulatory [facility] Start: 12-12-2024 End: 12-12-2024 Encounter for other preprocedural examination [facility] Start: 12-06-2024 End: 12-06-2024 Emergency department patient visit IDANIA RICKETTS [facility] Start: 12-05-2024 End: 12-05-2024 Emergency department patient visit IDANIA RICKETTS [facility] Start: 12-05-2024 End: 12-05-2024 Bamboo flowsheet Idania Ricketts DO Work Phone: [facility] Start: 12-05-2024 End: 12-05-2024 Bamboo flowsheet Idania Ricketts DO Work Phone: [facility] Start: 12-05-2024 End: 12-05-2024 Office outpatient visit 25 minutes Idania Ricketts DO Work Phone: [facility] Comment on above: Type [...] (CMS/HCC) Start: 12-05-2024 End: 12-05-2024 ambulatory IDANIA M PETZNICK Not Available Start: 11-27-2024 End: 11-28-2024 Emergency department patient visit Idania Rossick DO Work Phone: [facility] Work Phone: Start: 11-27-2024 End: 11-27-2024 Emergency department patient visit IDANIA RICKETTS [facility] Start: 11-27-2024 End: 11-27-2024 Emergency department patient visit IDANIA RICKETTS [facility] Start: 11-27-2024 End: 11-27-2024 Telephone encounter Idania Ricketts DO Work Phone: [facility] Comment on above: Med Refill Start: 11-23-2024 Encounter for other preprocedural examination BERTIN [facility] Start: 11-23-2024 ambulatory [facility] Start: 11-07-2024 End: 11-07-2024 ambulatory [facility] Start: 10-31-2024 End: 10-31-2024 ambulatory [facility] Start: 10-29-2024 End: 10-30-2024 ambulatory Idania Ricketts Facility:[facility] Start: 10-29-2024 End: 10-30-2024 Evaluation and management of inpatient Idania Pettanoick DO Work Phone: [facility] Work Phone: Start: 10-25-2024 End: 10-26-2024 Emergency department patient visit IDANIA RICKETTS [facility] Start: 10-17-2024 End: 10-17-2024 ambulatory [facility] Start: 10-17-2024 End: 10-17-2024 ambulatory [facility] Start: 10-13-2024 End: 10-13-2024 ambulatory IDANIA Mcfarlane PETTANOICK Facility:[facility] Start: 10-04-2024 End: 10-04-2024 Telephone encounter Idania Rossick DO Work Phone: [facility] 230 Comment on above: Referral Start: 10-03-2024 End: 10-03-2024 ambulatory GI MONDRAGON Not Available Start: 10-03-2024 End: 10-03-2024 Office outpatient visit 15 minutes Gi Mondragon DPM Work Phone: [facility] Comment on above: Neuropathy (Primary Dx); Ulcer of right heel and midfoot with fat layer exposed (CMS/HCC); Ulcer of right foot, limited to breakdown of skin (CMS/HCC); Type 2 diabetes mellitus with peripheral neuropathy (CMS/HCC); Chronic kidney disease due to diabetes mellitus (CMS/HCC) Start: 10-02-2024 End: 10-02-2024 Office outpatient visit 15 minutes Idania Rossick DO Work Phone: [facility] 230 Comment on above: Bilious vomiting wit h nausea (Primary Dx); Type 2 diabetes mellitus with peripheral neuropathy (CMS/HCC) Start: 10-02-2024 End: 10-02-2024 ambulatory IDANIA Maeve PETZNICK Not Available Start: 09-19-2024 End: 09-19-2024 Office outpatient visit 15 minutes Idania Rossick DO Work Phone: [facility] 230 Comment on above: Lymphedema (Primary Dx); End stage renal disease (CMS/HCC); Venous stasis dermatitis Start: 09-19-2024 End: 09-19-2024 Patient encounter procedure Gi Mondragon DPM Work Phone: [facility] Comment on above: Ulcer of right heel and midfoot with fat layer exposed (CMS/HCC) (Primary Dx); Ulcer of right foot, limited to breakdown of skin (CMS/HCC); Type 2 diabetes mellitus with peripheral neuropathy (CMS/HCC); Neuropathy Start: 09-19-2024 End: 09-19-2024 ambulatory IDANIA Maeve PETZNICK Not Available Start: 09-12-2024 End: 09-12-2024 Telephone encounter Idania Rossick DO Work Phone: [facility] 230 Start: 09-12-2024 End: 09-12-2024 ambulatory [facility] Start: 09-05-2024 End: 09-05-[address] [facility] Start: 09-04-2024 End: 09-04-2024 Office [...] patient visit Idania Ricketts DO Work Phone: [facility] Work Phone: Start: 08-22-2024 End: 08-22-[address] [facility] Start: 08-22-2024 End: 08-22-2024 ambulatory [facility] Start: 08-08-2024 End: 08-08-[address] [facility] Start: 08-08-2024 ambulatory [facility] Start: 08-07-2024 End: 08-07-2024 Office outpatient visit 25 minutes Idania Ricketts [...] diabetes mellitus with ESRD (end-stage renal disease) ([facility]/HCC); 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, with long-term current use of insulin ([facility]); Chronic kidney disease with end stage renal disease on dialysis due to type 2 diabetes mellitus ([facility]); Anxiety; Dependence on renal dialysis ([facility]); Pure hypercholesterolemia ([facility]); Long-term insulin use ([facility]); Hx of amputation of lesser toe, left ([facility]) ([facility]); Class 3 severe obesity due to excess calories with serious comorbidity and body mass index (BMI) of 40.0 to 44.9 in adult ([facility]); Inguinal adenopathy Start: 08-07-2024 End: 08-07-2024 ambulatory IDANIA RICKETTS Not Available Start: 07-28-2024 End: 07-28-2024 ambulatory [facility] Start: 07-27-2024 End: 07-27-2024 ambulatory [facility] Start: 07-27-2024 End: 07-27-2024 Encounter for preprocedural cardiovascular examination [facility] Start: 07-25-2024 End: 07-25-2024 ambulatory [facility] Start: 07-18-2024 End: 07-18-2024 ambulatory [facility] Start: 07-11-2024 Encounter for prepro cedural cardiovascular examination [facility] Start: 07-11-2024 End: 07-11-2024 ambulatory BERTIN [facility] Start: 07-11-2024 ambulatory [facility] Start: 06-29-2024 End: 06-29-2024 Bamboo flowsheet Gi Mondragon DPM Work Phone: [facility] Start: 06-29-2024 End: 06-29-2024 Bamboo flowsheet Gi Mondragon DPM Work Phone: [facility] Start: 06-29-2024 End: 06-29-2024 Patient encounter procedure Gi Mondragon DPM Work Phone: [facility] Comment on above: Ulcer of right heel and midfoot with fat layer exposed (CMS/HCC) (Primary Dx); Ulcer of right foot, limited to breakdown of skin (CMS/HCC); Type 2 diabetes mellitus with peripheral neuropathy (CMS/HCC); Neuropathy Start: 06-29-2024 End: 06-29-2024 ambulatory GI MONDRAGON Not Available Start: 06-22-2024 End: 06-22-2024 ambulatory [facility] Start: 06-20-2024 End: 06-20-2024 ambulatory ANYA [facility] Start: 06-13-2024 End: 06-13-2024 [facility] Start: 06-08-2024 End: 06-08-2024 Bamboo flowsheet Gi Mondragon DPM Work Phone: [facility] Start: 06-08-2024 End: 06-08-2024 Bamboo flowsheet Gi Mondragon DPM Work Phone: [facility] Start: 06-08-2024 End: 06-08-2024 Patient encounter procedure Gi Mondragon DPM Work Phone: [facility] Comment on above: Ulcer of right heel and midfoot with fat layer exposed (CMS/HCC) (Primary Dx); Type 2 diabetes mellitus with peripheral neuropathy (CMS/HCC); Neuropathy Start: 06-08-2024 End: 06-08-2024 ambulatory GI MONDRAGON Not Available Start: 05-30-2024 End: 05-31-2024 Telephone encounter Sophia Martini MA [facility] Start: 05-18-2024 End: 05-18-2024 Bamboo flowsheet Gi Mondragon DPM Work Phone: [facility] Start: 05-18-2024 End: 05-18-2024 Bamboo flowsheet Gi Mondragon DPM Work Phone: [facility] Start: 05-18-2024 End: 05-18-2024 Patient encounter procedure Gi Mondragon DPM Work Phone: [facility] Comment on above: Ulcer of right heel and midfoot with fat layer exposed (CMS/HCC) (Primary Dx); Neuropathy; Ulcer of right foot, limited to breakdown of skin (CMS/HCC); Type 2 diabetes mellitus with peripheral neuropathy (CMS/HCC) Start: 05-16-2024 End: 05-16-2024 Office outpatient visit 15 minutes Idania Maeve Marilin DO Work Phone: [facility] Comment on above: Type 2 diabetes conrad itus with peripheral neuropathy (CMS/HCC) (Primary Dx); Anxiety Start: 05-15-2024 End: 05-15-2024 Emergency department patient visit DO Idania Herokorina Work Phone: [facility] Work Phone: Start: 05-04-2024 End: 05-04-2024 Bamboo flowsheet Gi Mondragon DPM Work Phone: [facility] Start: 05-04-2024 End: 05-04-2024 Bamboo flowsheet Gi Mondragon DPM Work Phone: [facility] Start: 05-04-2024 End: 05-04-2024 Patient encounter procedure Gi Mondragon DPM Work Phone: [facility] Comment on above: Ulcer of right heel and midfoot with fat layer exposed (CMS/HCC) (Primary Dx); Ulcer of right foot, limited to breakdown of skin (CMS/HCC) Start: 04-26-2024 End: 04-27-2024 Refill Anayeli Mack LPN [facility] Comment on above: 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 (CMS/HCC) Start: 02-04-2024 End: 02-04-2024 Admission to same day surgery center DO Idaniakavita Ricketts Work Phone: [facility] [place] Start: 02-04-2024 End: 02-04-2024 ambulatory DO Idania Petznick Work Phone: [facility] Work Phone: Start: 01-03-2024 End: 01-03-2024 ambulatory DO Idania Petznick Work Phone: [facility] Work Phone: Start: 01-03-2024 End: 01-03-2024 Patient encounter procedure DO Idania Petznick Work Phone: [facility] Work Phone: Start: 12-24-2023 End: 12-24-2023 Admission to same day surgery center DO Idania Petznick Work Phone: [facility] Start: 12-24-2023 End: 12-24-2023 ambulatory DO Idania Petznick Work Phone: [facility] Work Phone: Start: 12-06-2023 End: 12-06-2023 ambulatory DO Idania Petznick Work Phone: [facility] Work Phone: Start: 12-06-2023 End: 12-06-2023 Patient encounter procedure DO Idania Petznick Work Phone: [facility] Vascular Surgery Work Phone: Start: 11-25-2023 End: 11-25-2023 Emergency department patient visit DO Idania Petznick Work Phone: [facility] Work Phone: Start: 11-22-2023 End: 11-23-2023 Non-patient / Non-visit DO Idania Petznick Work Phone: [facility]ious Disease Work Phone: Start: 11-21-2023 End: 11-23-2023 Non-patient / Non-visit DO Idania Petznick Work Phone: [facility] Nephrology Work Phone: Start: 11-20-2023 End: 11-23-2023 Non-patient / Non-visit DO Idania Petznick Work Phone: [facility] Med OutPt Work Phone: Start: 11-20-2023 End: 11-23-2023 Evaluation and management of inpatient DO Idania Petznick Work Phone: [facility] Work Phone: Start: 11-15-2023 End: 12-21-2023 ambulatory DO Idania Petznick Work Phone: [facility] Work Phone: Start: 11-15-2023 End: 12-21-2023 Discharged Recurring DO Idania Petznick Work Phone: [facility]Infusion Therapy - O/P Work Phone: Start: 11-15-2023 Registered Recurring DO Alliso n Petznick Work Phone: [facility]Infusion [facility] - [facility] Work Phone: Start: 11-08-2023 End: 11-08-2023 Patient encounter procedure DO Idania Petznick Work Phone: [facility] Vascular Surgery Work Phone: Start: 10-27-2023 End: 10-27-2023 Admission to same day surgery center DO Idania Petznick Work Phone: [facility] [place] Start: 10-27-2023 End: 10-27-2023 ambulatory DO Idania Petznick Work Phone: [facility] Work Phone: Start: 10-18-2023 External Result Encounter Flakito High DO Work Phone: [facility] Unsolicited Start: 10-18-2023 External Result Encounter Flakito Smitha Emmanuelolvin DO Work Phone: [facility] Unsolicited Start: 10-18-2023 End: 10-18-2023 ambulatory DO Idania Petznick Work Phone: [facility] Work Phone: Start: 10-18-2023 End: 10-18-2023 Patient encounter procedure DO Idania Petznick Work Phone: [facility] Testing Work Phone: Start: 10-13-2023 Chart abstracting Flakito bah DO Work Phone: [facility] Start: 10-13-2023 End: 10-13-2023 Office outpatient visit 25 minutes Flakito High DO Work Phone: [facility] Comment on above: Peritoneal dialysis catheter dysfunction, subsequent encounter (CMS/[facility]) (Primary Dx) Start: 10-07-2023 End: 10-07-2023 ambulatory Tondra Oralus Other [facility] Other Start: 10-07-2023 Telephone encounter Michelle Kennedy [facility] Start: 10-06-2023 Non-patient / Non-visit DO All kavita Petznick Work Phone: [facility] Vascular Surgery Work Phone: Start: 10-04-2023 End: 10-04-2023 ambulatory Ramirez Jean Other [facility] Other Start: 10-04-2023 Office outpatient vi sit 25 minutes Ramirez Jean [facility] Vascular Surgery Start: 10-04-2023 End: 10-04-2023 Patient encounter procedure DO Idania Petznick Work Phone: [facility]- Start: 09-27-2023 End: 09-27-2023 ambulatory DO Idania Petznick Work Phone: [facility] Work Phone: Start: 09-27-2023 End: 09-27-2023 Patient encounter procedure DO Idania Petznick Work Phone: [facility]Ultrasound Main [place] Work Phone: Start: 09-25-2023 End: 09-26-2023 Emergency department patient visit DO Idania Petznick Work Phone: [facility]-Emergency Room Work Phone: Start: 09-16-2023 End: 09-16-2023 Admission to same day surgery center DO Idania Petznick Work Phone: [facility]Surgery Center [facility] [place] Start: 09-16-2023 End: 09-16-2023 ambulatory DO Idania Petznick Work Phone: [facility] Work Phone: Start: 08-26-2023 End: 08-26-2023 ambulatory Rasheeda Fitt Other [facility] Other Start: 08-26-2023 Telephone encounter Rasheeda Byront [facility] Start: 08-10-2023 End: 08-10-2023 ambulatory Tondra Mapus Other [facility] Other Start: 08-10-2023 Telephone encounter Tondra Mapus [facility] Start: 08-09-2023 End: 08-09-2023 Emergency department patient visit DO Idania Petznick Work Phone: [facility]Emergency Room Work Phone: Start: 07-27-2023 End: 07-27-2023 ambulatory Tondra Mapus Other [facility] Other Start: 07-27-2023 Telephone encounter Tondra Mapus [facility] Start: 07-14-2023 End: 07-14-2023 ambulatory Tondra Mapus Other [facility] Other Start: 07-14-2023 Telephone encounter Tondra Mapus [facility] Start: 07-07-2023 End: 07-07-2023 ambulatory Tondra Mapus Other [facility] Other Start: 07-07-2023 Telephone encounter Tondra Mapus [facility] Start: 06-28-2023 End: 06-28-2023 ambulatory Tondra Mapus Other [facility] Other Start: 06-28-2023 Telephone encounter Tondra Mapus [facility] Start: 06-26-2023 End: 06-26-2023 ambulatory DO Idania Rossick Work Phone: [facility] Work Phone: Start: 06-26-2023 End: 06-26-2023 Patient encounter procedure DO Idania Petznick Work Phone: [facility]-Lab [facility] [place] Work Phone: Start: 06-22-2023 End: 06-22-2023 ambulatory Tondra Mapus Other [facility] Other Start: 06-22-2023 Telephone encounter Tondra Mapus [facility] Start: 06-21-2023 End: 06-21-2023 ambulatory Tondra Mapus Other [facility] Other Start: 06-21-2023 Telephone encounter Tondra Mapus [facility] Start: 06-16-2023 Registered Recurring DO Alliso n Petznick Work Phone: [facility] Work Phone: Start: 06-16-2023 End: 06-16-2023 ambulatory Michelle Kennedy Other [facility] Other Start: 06-16-2023 FQHC visit new patient Michelle Kennedy [facility] Start: 03-11-2023 Office Services Sj P November and Other [facility] Start: 01-29-2023 Office Services Sj P November and Other [facility] Start: 12-18-2022 Office Services Sj P November and Other [facility] Start: 12-04-2022 (Dialysis T) Dialysi s Training Ada Moody [facility] Start: 12-04-2022 End: 12-04-2022 ambulatory Ada Moody Other [facility] Other Start: 11-20-2022 End: 11-20-2022 ambulatory DO Idania Petznick Work Phone: [facility] Work Phone: Start: 11-20-2022 End: 11-20-2022 Patient encounter procedure DO Idania Petznick Work Phone: [facility]Lab [facility] [place] Work Phone: Start: 11-13-2022 Office Services Sj Samantha November and Other [facility] Office Start: 11-04-2022 End: 11-07-2022 Evaluation and management of inpatient DO Idania Petznick Work Phone: [facility] Work Phone: Start: 11-04-2022 End: 11-04-2022 ambulatory Ada Moody Other [facility] Other Start: 11-04-2022 Telephone encounter Ada Moody [facility] Start: 11-02-2022 End: 11-02-2022 ambulatory DO Idania Petznick Work Phone: [facility] Work Phone: Start: 11-02-2022 End: 11-02-2022 Patient encounter procedure DO Idania Petznick Work Phone: [facility]Lab [facility] [place] Work Phone: Start: 11-01-2022 End: 11-01-2022 Emergency department patient visit DO Idania Petznick Work Phone: [facility]-Emergency Room Work Phone: Start: 10-26-2022 Office Services Sj Singh November and Other [facility] Start: 10-10-2022 End: 10-10-2022 Emergency department patient visit DO Idania Pettanoick Work Phone: [facility]Emergency Room Work Phone: Start: 10-09-2022 End: 10-10-2022 ambulatory Sj Francois DPM Facility:[facility] Start: 10-09-2022 Office Services Sj Singh November and Other [facility] Office Start: 09-22-2022 End: 09-23-2022 Emergency department patient visit DO Idania Ricketts Work Phone: [facility]Emergency Room Work Phone: Start: 08-14-2022 Office Services Sj Singh November and Other [facility] Office Start: 08-12-2022 End: 08-12-2022 ambulatory Ada Moody Other [facility] Other Start: 08-12-2022 Office outpatient vi sit 25 minutes Ada Moody [facility] Start: 08-12-2022 Telephone encounter Ada Moody [facility] Ne[facility] Start: 08-03-2022 End: 08-03-2022 ambulatory DO Idania Petznick Work Phone: [facility] Work Phone: Start: 08-03-2022 End: 08-03-2022 Patient encounter procedure DO Idania Petznick Work Phone: [facility]-Lab [facility] Start: 07-28-2022 End: 07-29-2022 Emergency department patient visit DO Idania Petznick Work Phone: [facility]-Emergency Room Start: 07-24-2022 Office Services Sj Stallworth Other [facility] Office Start: 07-17-2022 End: 07-18-2022 ambulatory Sj Francois DPMaeve Facility:[facility] Start: 07-17-2022 Office outpatient ne w 30 minutes Sj Francois Other [facility] Office Start: 06-27-2022 End: 06-27-2022 ambulatory DO Idania Petznick Work Phone: [facility] Work Phone: Start: 06-27-2022 End: 06-27-2022 Patient encounter procedure DO Idania Petznick Work Phone: [facility] Start: 06-18-2022 Encounter for prepro cedural [facility] Start: 06-16-2022 End: 06-16-2022 ambulatory Ada Moody Other [facility] Other Start: 06-16-2022 Telephone encounter Ada Moody [facility] Start: 06-15-2022 End: 06-16-[address] IDANIA RICKETTS Facility:[facility] Start: 06-15-2022 End: 06-16-2022 Encounter for preprocedural laboratory examination DR IDANIA RICKETTS Facility:[facility] Start: 05-20-2022 End: 05-20-2022 ambulatory Ada Moody Other [facility] Other Start: 05-20-2022 Office outpatient vi sit 25 minutes Ada Moody [facility] Start: 05-16-2022 End: 05-16-2022 Patient encounter procedure DO Idania Ricketts Work Phone: [facility] Start: 05-01-2022 End: 05-02-2022 ambulatory BERTINOMAYRA RUSSELL Facility:[facility] Start: 03-12-2022 End: 03-12-2022 ambulatory Ada Moody Other [facility] Other Start: 03-12-2022 Office outpatient vi sit 25 minutes Ada Moody [facility] Nikhil Start: 03-06-2022 End: 03-07-2022 ambulatory KEVIN WILKES Facility:[facility] Start: 02-26-2022 End: 02-27-2022 ambulatory KEVIN WILKES Facility:[facility] Start: 02-25-2022 End: 02-25-2022 ambulatory Ada Moody Other [facility] Other Start: 02-25-2022 Telephone encounter Ada Moody [facility] Start: 02-20-2022 End: 02-20-2022 Patient encounter procedure DO [facility]etts [facility] Start: 02-19-2022 End: 02-20-2022 ambulatory KEVIN WILKES Facility:[facility] Start: 02-09-2022 End: 02-10-2022 ambulatory KEVIN WILKES Facility:[facility] Start: 01-27-2022 End: 01-28-[address] IDANIA RICKETTS Facility:[facility] Start: 01-21-2022 End: 01-21-2022 ambulatory KEVIN WILKES Facility:[facility] Start: 12-31-2021 End: 01-01-2022 ambulatory KEVIN WILKES Facility:[facility] Start: 12-03-2021 End: 12-03-2021 ambulatory Ada Moody Other [facility] Other Start: 12-03-2021 Office outpatient vi sit 25 minutes Ada Moody [facility] Procedures Date Procedure Procedure Detail Performing Clinician Start: 06-07-2025 Complete blood count with white cell differential, automated Idania Ricketts DO Work Phone: Start: 05-22-2025 Hemoglobin glycosylated a1c Idania Ricketts DO Work Phone: Start: 05-17-2025 Adult depression scr eening assessment Tyesha Apple DO Work Phone: Start: 02-02-2025 End: 02-02-2025 Basic metabolic panel calcium total Sherley Templeton MD Work Phone: Start: 02-02-2025 Radex foot complete minimum 3 views Sherley Templeton MD Work Phone: Start: 01-01-2025 Viral nucleic acid assay Idania Rossick DO Work Phone: Start: 11-27-2024 Duplex scan of lower limb veins Idania Petznick DO Work Phone: Start: 10-29-2024 X-ray of right foot All kavita oRssick DO Work Phone: Start: 10-29-2024 Bacteria identified in Blood by Culture Idania Pettanoick DO Work Phone: Start: 08-28-2024 Duplex scan of lower limb veins Idania Petznick DO Work Phone: Start: 06-20-2024 Colonoscopy Gi Mondragon DPM Work Phone: Start: 02-04-2024 Debridement DO Idania Petznick Work Phone: Start: 12-24-2023 Debridement DO Idania Petznick Work Phone: Start: 12-06-2023 Ultrasonography of arteriovenous fistula DO Idania Petznick Work Phone: Start: 11-23-2023 MRI of right foot DO Al amy Petznick Work Phone: Start: 11-22-2023 Pulse volume [...] Influenz a & RSV (PCR) DO Idania Petznick Work Phone: Start: 09-16-2023 Plain chest X-ray DO Al lison Petznick Work Phone: Start: 09-16-2023 Fluoroscopic guidance D O Idania Petznick Work Phone: Start: 09-02-2023 Debridement muscle & [...] inserti on of peritoneal dialysis catheter DO Casmul Work Phone: Start: 11-05-2022 SARS-CoV-2, Influenz a & RSV (PCR) DO Casmul Work Phone: Start: 11-04-2022 Plain chest X-ray DO Al PinkelStarluly Masabi Phone: Start: 11-01-2022 Plain chest X-ray DO Al amy Paperlinks Work Phone: Start: 11-01-2022 Screening for occult blood in feces DO Casmul Work Phone: Start: 10-09-2022 Duplex scan of lower limb veins Sj Start: 09-25-2022 Debridement muscle & fascia 20 sq cm/< Sj P Alessandro Other Start: 09-03-2022 Colonoscopy Flakito bah DO Work Phone: Start: 08-14-2022 Foot destructive procedure Sj Start: 08-14-2022 Procedure on wound Geronimo my Start: 07-24-2022 Evaluation AND/OR ma anuement - established patient Sj Francois Start: 07-23-2022 Docrev cur meds by scout quintanilla Sj [facility] Start: 07-23-2022 Procedure on wound Geronimo velasquez Alessandro Start: 07-17-2022 Docrev cur meds by scout quintanilla Sj [facility] Start: 07-17-2022 Procedure on wound Geronimo velasquez Alessandro Start: 07-17-2022 Wound microscopy, cu lture and sensitivities Sj [facility] Start: 04-07-2022 PSA screening [facility]ERTIN [facility] Comment on above: Order Comment: only males 40 and older Performed By: #### 4 [id number] #### [facility] [address] [facility] Plan of Treatment Date Care Activity Detail Author Start: 06-20-2034 Screening for malignant neoplasm of colon [facility] Start: 09-03-2032 Screening for malignant neoplasm of colon [facility] Start: 05-01-2031 DTaP,Tdap and Td Vaccines (3 - Td or Tdap) DTaP,Tdap and Td Vaccines (3 - Td or Tdap) [facility] Start: 06-08-2026 Tobacco Screening Tobacco Screening [facility] Start: 05-25-2026 Adult BMI Screening Adult BMI Screening [facility] Start: 05-25-2026 Tobacco Screening Tobacco Screening [facility] Start: 05-22-2026 Medicare Annual Wellness (AWV) Medicare Annual Wellness (AWV) [facility] Start: 05-18-2026 Adult BMI Screening Adult BMI Screening [facility] Start: 05-18-2026 Tobacco Screening Tobacco Screening [facility] Start: 05-17-2026 Adult BMI Follow Up Plan Adult BMI Follow Up Plan [facility] Start: 05-17-2026 Depression Screening Depression Screening [facility] Start: 05-10-2026 Adult BMI Screening Adult BMI Screening [facility] Start: 05-10-2026 Tobacco Screening Tobacco Screening [facility] Start: 04-10-2026 Adult BMI Screening Adult BMI Screening [facility] Start: 04-10-2026 Tobacco Screening Tobacco Screening [facility] Start: 04-05-2026 Adult BMI Screening Adult BMI Screening [facility] Start: 04-05-2026 Tobacco Screening Tobacco Screening [facility] Start: 12-28-2025 Statin Use: Diabetic Statin Use: Diabetic [facility] Start: 08-21-2025 Hemoglobin A1c measurement Diabetes: Hemoglobin A1C [facility] Start: 07-24-2025 End: 07-24-2025 Patient encounter procedure 07/24/2025 1:30 PM EST Office Visit [facility] [address] [place] [address] Idania Ricketts, [address] [place] [address] [facility] Start: 06-28-2025 End: 06-28-2025 Patient encounter procedure 06/28/2025 2:30 PM EDT Office Visit [facility] [address] [place] [address] Kaylee Mesa PA [address] [facility] [place] [address] [facility] Start: 06-22-2025 Urine screening for protein Diabetes: Urine Protein Screening [facility] Start: 06-21-2025 End: 06-21-2025 Patient encounter procedure 06/21/2025 1:00 PM EDT Office Visit [facility] [address] [place] [address] [address] [place] [id number] Tyesha Apple, [address] [facility], [address] [place] [address] [facility] Start: 06-19-2025 End: 06-19-2025 Patient encounter procedure 06/19/2025 10:45 AM EDT Office Visit [facility] [address] [place] [facility] [place] [address] Kaylee Mesa PA [address] [place] [address] [facility] Start: 06-08-2025 End: 06-08-2025 Admission to same day surgery center 06/08/2025 1:45 PM EDT - 06/08/2025 1:[address] [facility] [address] [place] [phone] Alec Jacobson MD [address] [place] [address] INJECTION BLOCK EPIDURAL CAUDAL STEROID [31523 (CPT )] [facility] Comment on above: INJECTION BLOCK EPIDURAL CAUDAL STEROID [96260 (CPT )] Start: 06-08-2025 End: 06-08-2025 Njx dx/ther sbst intrlmnr lmbr/sac w/img gdn INJECTION BLOCK EPIDURAL CAUDAL STEROID Spinal stenosis of lumbar region with neurogenic claudication 06/08/2025 1:45 PM EDT [facility] Start: 06-08-2025 Subsequent hospital visit by physician 06/08/2025 1:45 PM EDT Hospital Encounter [facility] [address] [place] [phone] Alec Jacobson MD [address] [place] [address] [facility] Start: 05-25-2025 End: 05-25-2025 Njx dx/ther sbst intrlmnr lmbr/sac w/img gdn INJECTION BLOCK EPIDURAL CAUDAL STEROID Spinal stenosis of lumbar region with neurogenic claudication 05/25/2025 1:01 PM EDT [facility] Start: 05-25-2025 End: 05-25-2025 Admission to same day surgery center [facility] Comment on above: INJECTION BLOCK EPIDURAL CAUDAL STEROID INJECTION BLOCK EPID URAL CAUDAL STEROID [44386 ([facility] )] Start: 05-25-2025 End: 05-25-2025 INJECTION BLOCK EPIDURAL CAUDAL STEROID [facility] Start: 05-25-2025 Subsequent hospital visit by [address] [facility] Start: 05-25-2025 End: 05-25-2025 Patient encounter procedure 05/25/2025 10:15 AM EDT Appointment [facility] [address] [place] [phone] Alec Jacobson MD [address], [place] [phone] [facility] Start: 05-23-2025 Urine screening for protein Diabetes: Urine Protein Screening [facility] Start: 05-22-2025 End: 05-22-2025 Patient encounter procedure 05/22/2025 4:00 PM EDT Office Visit [facility] [address] [place] [address] Idania Ricketts, [address] [place] [address] [facility] Start: 05-22-2025 End: 05-22-2026 Prostate specific Ag [Mass/volume] in Serum or Plasma PSA Lab Routine Screening for prostate cancer Expected: 05/22/2025 (Approximate), Expires: 05/22/2026 [facility] Comment on above: Expected: 05/22/2025 (Approximate), Expi res: 05/22/2026 Start: 05-17-2025 End: 05-17-2025 Patient encounter procedure 05/17/2025 10:30 AM EDT Office Visit [facility] [address] [place] [address] [place] [address] Tyesha Apple, DO [address] [facility] [facility] [address], [place] [address] [facility] Start: 05-10-2025 End: 05-10-2025 Patient encounter procedure 05/10/2025 1:00 PM EDT Office Visit [facility] [address] [place] [phone] Kaylee Mesa PA [address] [place] [address] [facility] Start: 05-07-2025 COVID-19 Vaccine ( season) COVID-19 Vaccine ( season) [facility] Start: 05-07-2025 Influenza vaccination [facility] Start: 04-27-2025 End: 04-27-2025 Admission to same day surgery center 04/27/2025 1:55 PM EDT - 04/27/2025 2:[address] [facility] [address] [place] [phone] Alec Jacobson MD [address] [place] [address] INJECTION BLOCK EPIDURAL CAUDAL STEROID [17255 (CPT )] [facility] Comment on above: INJECTION BLOCK EPIDURAL CAUDAL STEROID [98437 (CPT )] Start: 04-27-2025 Subsequent hospital visit by physician 04/27/2025 1:55 PM EDT Hospital Encounter [facility] [address] [place] [phone] Alec Jacobson MD [address] [place] [address] [facility] Start: 04-27-2025 End: 04-27-2025 Njx dx/ther sbst intrlmnr lmbr/sac w/img gdn [facility] Start: 04-06-2025 Influenza vaccination Flu vaccine (#1) [facility] Start: 03-05-2025 Influenza vaccination Influenza Vaccine (#1) [facility] Comment on above: Postponed from 05/07/2024 (Supply/Drug S hortage) Start: 01-06-2025 Glaucoma screening Diabetes: Retinopathy Screening [facility] Start: 12-05-2024 End: 12-05-2024 Patient encounter procedure 12/05/2024 2:00 PM EDT Office Visit [facility] [address] [place] [phone] Idania Ricketts, DO [address] [place], [place] [phone] Arrived [facility] Comment on above: Arrived Start: 11-27-2024 Duplex scan of lower limb veins US venous duplex LE RT [facility] Start: 11-27-2024 US Lower extremity vein - right [facility] Start: 11-08-2024 [facility] Start: 11-07-2024 [facility] Start: 11-06-2024 End: 11-06-2024 Patient encounter procedure 11/06/2024 11:30 AM EST Office Visit [facility] [address] [place] [phone] Idania Ricketts, DO [address] [place] [address] [facility] Start: 11-06-2024 [facility] Start: 11-05-2024 [facility] Start: 11-04-2024 [facility] Start: 11-03-2024 [facility] Start: 11-02-2024 [facility] Start: 11-01-2024 [facility] Start: 10-31-2024 [facility] Start: 10-30-2024 [facility] Start: 10-29-2024 [facility] Start: 10-29-2024 MRI of right foot with contrast MR foot RT wo/w con [facility] Start: 10-29-2024 Hospital admission [facility] Start: 10-29-2024 Patient referral to dietitian [facility] Start: 10-29-2024 Referral to infectious diseases physician [facility] Start: 10-29-2024 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 to warehouse receiving supervisor [facility] Start: 10-29-2024 Referral to head swamper [facility] Start: 10-29-2024 [facility] Start: 10-29-2024 [facility] Start: 10-29-2024 Bacteria identified in Blood by Culture Blood Culture [facility] Start: 10-12-2024 End: 10-12-2024 Patient encounter procedure 10/12/2024 9:45 AM EST Office Visit [facility] [address] [place] [phone] Gi Mondragon, DPM [address] [place] [address] [facility] Start: 10-11-2024 Hemoglobin A1c measurement Diabetes: Hemoglobin A1C [facility] Start: 10-03-2024 End: 10-03-2024 Patient encounter procedure 10/03/2024 9:30 AM EST [facility] [address] [place] [address] Gi Mondragon, DPM [address] [place] [address] [facility] Start: 09-30-2024 Medicare Annual Wellness (AWV) Medicare Annual Wellness (AWV) [facility] Start: 09-12-2024 End: 09-12-2024 Patient encounter procedure 09/12/2024 9:30 AM EST [facility] [address] [place] [phone] Gi Mondragon, DPM [address] [place] [address] [facility] Start: 09-06-2024 Annual Wellness Visit (Medicare Advantage) Annual Wellness Visit (Medicare Advantage) [facility] Start: 08-29-2024 End: 08-29-2024 Patient encounter procedure 08/29/2024 9:30 AM EST Office Visit [facility] [address] [place] [address] Gi Mondragon, DPM [address] [place] [address] [facility] Start: 08-08-2024 End: 08-08-2024 Patient encounter procedure 08/08/2024 9:30 AM EST Office Visit [facility] [address] [place] [address] Gi Mondragon, DPM [address] [place] [address] [facility] Start: 07-18-2024 End: 07-18-2024 Patient encounter procedure 07/18/2024 11:00 AM EST Office Visit [facility] [address] [place] [address] Gi Monrdagon, DPM [address] [place] [address] [facility] Start: 06-30-2024 End: 06-30-2024 Patient encounter procedure [facility] Comment on above: Type 2 diabetes mellitus with foot ulcer , with long-term current use of insulin ([facility] Start: 06-29-2024 End: 06-29-2024 Patient encounter procedure [facility] Comment on above: Arrived Start: 06-08-2024 End: 06-08-2024 Patient encounter procedure [facility] Comment on above: Arrived Start: 05-27-2024 Hemoglobin A1c measurement Diabetes: Hemoglobin A1C [facility] Start: 05-18-2024 End: 05-18-2024 Patient encounter procedure [facility] Comment on above: Arrived Start: 05-07-2024 COVID-19 Vaccine () COVID-19 Vaccine () [facility] Start: 05-07-2024 COVID-19 Vaccine () COVID-19 Vaccine () [employer] [facility] Start: 05-07-2024 Influenza vaccination Influenza Vaccine (#1) [facility] Start: 05-04-2024 End: 05-04-2024 [facility] on above: Arrived Start: 04-27-2024 Urine screening for protein Diabetes: Urine Protein Screening [facility] Start: 02-04-2024 [facility] Start: 12-30-2023 End: 12-30-2023 Patient encounter procedure 12/30/2023 1:15 PM EDT Office Visit [facility] [address] [place] [phone] Idania Ricketts DO [address] [place] [address] [facility] Start: 12-24-2023 [facility] Start: 12-18-2023 Glaucoma screening Diabetes: Retinopathy Screening [facility] Start: 12-06-2023 Ultrasonography of arteriovenous fistula US AV Fistula [facility] Start: 12-06-2023 US AV fistula [facility] Start: 11-25-2023 [facility] Start: 11-24-2023 [facility] Start: 11-23-2023 End: 11-23-2023 [facility] Start: 11-22-2023 [facility] Start: 11-21-2023 Referral to infectious diseases physician [facility] Start: 11-21-2023 Referral to head swamper [facility] Start: 11-21-2023 [facility] Start: 11-20-2023 Hospital admission [facility] Start: 11-20-2023 Referral to warehouse receiving supervisor [facility] Start: 11-20-2023 [facility] Start: 11-20-2023 Plain chest X-ray XR chest 2V* [facility] Start: 11-20-2023 XR Chest 2 Views [facility] Start: 11-20-2023 [facility] Start: 11-20-2023 Bacteria identified in Blood by Culture Blood Culture [facility] Start: 11-20-2023 Blood culture for bacteria, including anaerobic screen Blood Culture [facility] Start: 11-20-2023 Extraction of Right Foot Skin, External Approach Extraction of Right Foot Skin, External Approach [facility] Start: 11-20-2023 Performance of Urinary Filtration, Intermittent, Less than 6 Hours Per Day Performance of Urinary Filtration, Intermittent, Less than 6 Hours Per Day [facility] Start: 11-10-2023 End: 11-10-2023 Patient encounter procedure 11/10/2023 9:30 AM EST [facility] [address] [place] [phone] Flakito High, DO [address] [place] [address] [facility] Start: 11-01-2023 End: 11-01-2023 Patient encounter procedure 11/01/2023 12:15 PM EST Procedure Visit [facility] Flakito High, DO [address] [place] [address] [facility] Start: 10-27-2023 [facility] Start: 10-13-2023 End: 10-13-2023 Patient encounter procedure 10/13/2023 11:15 AM EST [facility] [address] [place] [phone] Flakito High, DO [address] [place] [address] [facility] Start: 10-06-2023 [facility] Start: 10-06-2023 [facility] Start: 09-27-2023 US angiography US map hemodial access [facility] Start: 09-27-2023 US Unspecified body region [facility] Start: 09-25-2023 Plain chest X-ray XR chest 1V portable [facility] Start: 09-25-2023 XR Chest Single view [facility] Start: 09-16-2023 [facility] Start: 09-16-2023 [facility] Start: 07-28-2023 Hemoglobin A1c measurement Diabetes: Hemoglobin A1C [facility] Start: 05-07-2023 Influenza vaccination Influenza Vaccine (#1) [facility] Start: 03-11-2023 Debridement open wound 20 sq cm/< Active debridement of wound 20 square centimeters or less [facility] [employer] Start: 11-20-2022 Hepatitis B core antibody measurement [facility] Start: 11-20-2022 [facility] Start: 11-08-2022 Blood chemistry [facility] Start: 11-08-2022 [facility] Start: 11-07-2022 Blood chemistry [facility] Start: 11-07-2022 End: 11-07-2022 [facility] Start: 11-06-2022 Blood chemistry [facility] Start: 11-06-2022 [facility] Start: 11-05-2022 Blood chemistry [facility] Start: 11-05-2022 [facility] Start: 11-04-2022 Hospital admission [facility] Start: 11-04-2022 Referral to warehouse receiving supervisor [facility] Start: 11-04-2022 [facility] Start: 11-04-2022 Insertion of Infusion Device into Peritoneal Cavity, Percutaneous Endoscopic Approach Insertion of Infusion Device into Peritoneal Cavity, Percutaneous Endoscopic Approach [facility] Start: 11-01-2022 [facility] Start: 11-01-2022 Plain chest X-ray XR chest 2V* [facility] Start: 11-01-2022 XR Chest 2 Views [facility] Start: 10-09-2022 Dup-scan xtr veins unilateral/limited study [facility] [employer] Start: 07-17-2022 Cul bact xcpt urine blood/stool aerobic isol Wound culture and sensitivity [facility] Start: 05-19-2022 Urine screening for protein Diabetes: Urine Protein Screening [facility] Start: 01-11-2016 Screening for malignant neoplasm of colon [facility] Start: 2006 Diabetes screen Diabetes screen [facility] Start: 1991 Hepatitis B vaccine (1 of 3 - Risk Dialysis 4-dose series) Hepatitis B vaccine (1 of 3 - Risk Dialysis 4-dose series) [facility] Start: 1990 DTaP/Tdap/Td vaccine (1 - Tdap) DTaP/Tdap/Td vaccine (1 - Tdap) [facility] Start: 1990 Pneumococcal 50+ years Vaccine (1 of 2 - PCV) Pneumococcal 50+ years Vaccine (1 of 2 - PCV) [facility] Start: 1989 Adult BMI Follow Up Plan Adult BMI Follow Up Plan [facility] Start: 1989 Diabetic foot examination Diabetic Foot Exam [facility] Start: 1989 Hepatitis C screening Hepatitis C screen [facility] Start: 1986 HIV screening HIV screen [facility] Start: 1983 Depression Screen Depression Screen [facility] Start: 1983 Depression Screening Depression Screening [facility] Start: 1981 Lipid panel Lipids [facility] Start: 1971 Glaucoma screening Diabetic Ophthalmology Exam [facility] Start: 1971 Screening for malignant neoplasm of colon [facility] Start: 1971 Tobacco Counseling Tobacco Counseling [facility] Anion gap measurement [facility] aPTT in Platelet poo r plasma by Coagulation assay [facility] Basophils [#/volume] in Blood by Automated count [facility] Basophils/100 leukocytes in Blood by Automated count [facility] CBC W Auto Different ial panel - Blood CBC and differential Lab Routine Bilious vomiting with nausea Ordered: 10/02/2024 [facility] Comment on above: Ordered: 10/02/2024 CBC W Auto Different ial panel - Blood CBC and differential Lab Routine Essential hypertension Ordered: 05/22/2025 [facility] Comment on above: Ordered: 05/22/2025 CBC W Auto Different ial panel - Blood CBC auto differential Lab Routine 06/07/2025 1:15 PM EDT [facility] Work Phone: Comprehensive metabo lic 2000 panel - Serum or Plasma Comprehensive metabolic panel Lab Routine Bilious vomiting with nausea Ordered: 10/02/2024 [facility] Work Phone: Comment on above: Ordered: 10/02/2024 Comprehensive metabo lic 2000 panel - Serum or Plasma Comprehensive metabolic panel Lab Routine Pure hypercholesterolemia Ordered: 05/22/2025 [facility] Comment on above: Ordered: 05/22/2025 Eosinophils/100 leukocytes in Blood by Automated count [facility] Erythrocyte distribution width [Ratio] by Automated count [facility] Erythrocytes [#/volu me] in Blood [facility] Glucose measurement estimated from glycated hemoglobin [facility] Hematocrit [Volume Fraction] of Blood [facility] Hemoglobin [Mass/volume] in Blood [facility] Hemoglobin A1c/Hemoglobin.total in Blood [facility] INR in Platelet poor plasma by Coagulation assay [facility] Insulin C-peptide measurement [facility] Leukocytes [#/volume ] corrected for nucleated erythrocytes in Blood by Automated coun [facility] Leukocytes [#/volume ] in Blood [facility] Lipid 1996 panel - Serum or Plasma Lipid panel Lab Routine Pure hypercholesterolemia Ordered: 05/22/2025 [facility] [employer] Work Phone: Comment on above: Ordered: 05/22/2025 Lymphocytes [#/volum e] in Blood by Automated count [facility] Lymphocytes/100 leukocytes in Blood by Automated count [facility] MCH [Entitic mass] b y Automated count [facility] MCHC [Mass/volume] b y Automated count [facility] MCV [Entitic volume] by Automated count [facility] Microalbumin/Creatin ine panel in random Urine Microalbumin / creatinine urine ratio Lab Routine Type 2 diabetes mellitus with peripheral neuropathy (HCC) Ordered: 05/22/2025 [facility] Comment on above: Ordered: 05/22/2025 Monocytes [#/volume] in Blood by Automated count [facility] Monocytes/100 leukocytes in Blood by Automated count [facility] Neutrophils [#/volum e] in Blood by Automated count [facility] Neutrophils/100 leukocytes in Blood by Automated count [facility] Nucleated erythrocyt es [Presence] in Blood by Automated count [facility] Patient Education [facility] Work Phone: Patient referral [facility] Work Phone: Platelet mean volume [Entitic volume] in Blood by Automated count [facility] Platelets [#/volume] in Blood [facility] Prothrombin time (PT) [facility] Renal function 2000 panel - Serum or Plasma [facility] End: 02-02-2025 SPECIMEN REJECTION [facility] Comment on above: Once for 1 Occurrences starting 02/03/20 until 02/02/2025 Thyrotropin [Units/volume] in Serum or Plasma TSH Lab Routine Bilious vomiting with nausea Ordered: 10/02/2024 [facility] Comment on above: Ordered: 10/02/2024 Thyrotropin [Units/volume] in Serum or Plasma TSH Lab Routine Acquired hypothyroidism Ordered: 05/22/2025 [facility] Comment on above: Ordered: 05/22/2025 AV fistula [facility] Immunizations Immunization Date Immunization Notes Care Provider [facility] 06-20-2024 influenza virus vaccine, unspecified formulation Kaylee JONES Work Phone: [employer] 11-13-2022 zoster vaccine recombinant Flakito High DO Work Phone: [facility] 11-05-2022 influenza, injectabl e, quadrivalent, preservative free DO Idania Ricketts Work Phone: [facility] 11-05-2022 influenza virus vaccine, unspecified formulation Flakito High DO Work Phone: [facility] 08-12-2021 COVID-19 Ad26.COV2.S (Billie) DO Idania Petznick Work Phone: [facility] 01-23-2021 COVID-19 Ad26.COV2.S (Billie) DO Idania Petznick Work Phone: [facility] 06-18-2019 influenza, high dose seasonal, preservative-free Flakito Laffay DO Work Phone: [facility] 06-18-2019 influenza, injectabl e, quadrivalent, preservative free DO Idania Petznick Work Phone: [facility] 06-29-2014 seasonal influenza, intradermal, preservative free Flakito Laffay DO Work Phone: [facility] 06-26-2013 seasonal influenza, intradermal, preservative free Flakito Laffay DO Work Phone: [facility] Payers Date Payer Category Payer Medicaid HMO [id number] 2024 Medicare HMO [employer] [id number] 2024 Medicare [id number] 2023 Medicare (Managed Care) [id number] 2023 Private Health Insurance [id number] 2023 Medicare [id number]. [id number]. [id number] 2023 Medicaid [id number]. 1.13.693. [id number] 2023 Medicaid [id number] 2.16.840.1.090640.3.441 2022 Unknown 1971 Unknown [id number] 2.16.840.1.941285.3.579. 2.647 1971 Unknown [id number] 2.16.840.1.347778.3.579. 2.196 1971 Unknown [id number] 2.16.840.1.532133.3.579. 2.196 1971 Unknown [id number] 2.16.840.1.982793.3.579. 2.593 1971 Unknown [id number] 2.16.840.1.587329.3.579. 2.593 1971 Unknown [id number] 2.16.840.1.100128.3.579. 2.593 1971 Unknown [id number] 2.16.840.1.113265.3.579. 2.593 1971 Unknown [id number] 2.16.840.1.257399.3.579. 2.593 1971 Unknown [id number] 2.16.840.1.005079.3.579. 2.593 1971 Unknown [id number] 2.16.840.1.947537.3.579. 2.593 1971 Unknown [id number] 2.16.840.1.629006.3.579. 2.727 1971 Unknown [id number] 2.16.840.1.278436.3.579. 2.173 1971 Unknown [id number] 2.16.840.1.248258.3.579. 2. 1971 Unknown [id number] 2.16.840.1.584555.3.579. 2. 1971 Unknown [id number] 2.16.840.1.330349.3.579. 2. 1971 Unknown [id number] 2.16.840.1.111167.3.579. 2.1285 1971 Unknown [id number] 2.16.840.1.318822.3.579. 2.1258 1971 Unknown [id number] 2.16.840.1.720345.3.579. 2.1258 1971 Unknown [id number] 2.16.840.1.534258.3.579. 2.1258 1971 Unknown [id number] 2.16.840.1.887128.3.579. 2.1258 1971 Unknown [id number] 2.16.840.1.329837.3.579. 2.1258 1971 Unknown [id number] 2.16.840.1.748319.3.579. 2.1258 1971 Unknown [id number] 2.16.840.1.414808.3.579. 2.1258 1971 Unknown [id number] 2.16.840.1.421827.3.579. 2.1258 1971 Unknown [id number] 2.16.840.1.121767.3.579. 2.1258 1971 Unknown [id number] 2.16.840.1.575368.3.579. 2.1258 1971 Unknown [id number] 2.16.840.1.579108.3.579. 2.1285 1971 Unknown [id number] 2.16.840.1.903343.3.579. 2.1286 1971 Unknown [id number] 2.16.840.1.358404.3.579. 2.1285 1971 Unknown [id number] 2.16.840.1.534665.3.579. 2.1285 1971 Unknown [id number] 2.16.840.1.966424.3.579. 2.1285 1971 Unknown [id number] 2.16.840.1.211066.3.579. 2.1285 1971 Unknown [id number] 2..840.1.233417.3.579. 2.1285 1971 Unknown [id number] 2.840.1.382361.3.579. 2.1285 1971 Unknown [id number] 2.0.1.741718.3.579. 2.1285 1971 Unknown [id number] 2.840.1.435620.3.579. 2.1285 1971 Unknown [id number] 2.0.1.015018.3.579. 2.1285 1971 Unknown [id number] 2.840.1.831511.3.579. 2.1285 1971 Unknown [id number] 2.840.1.912500.3.579. 2.1285 1971 Unknown [id number] 2.840.1.407289.3.579. 2.1285 1971 Unknown [id number] 2.840.1.275237.3.579. 2.1285 1971 Unknown [id number] 2.16840.1.251822.3.579. 2.1285 1971 Unknown [id number] 2.840.1.050247.3.579. 2.1285 1971 Unknown [id number] 2.16.840.1.625813.3.579. 2.1286 1959 Self-pay [id number] 1959 Unknown [id number] 2.16.840.1.246510.19 Medicare [id number] Medicare [id number] 2.16.840.1.524563.19 Unknown [id number] Unknown [id number] 2.16.840.1.599446.3.579. 2.593 Unknown [id number] 2.16.840.1.021873.3.441 Unknown [id number] 2.16.840.1.085140.3.579. 2.531 Unknown [id number] 2.16.840.1.364134.3.579. 2.531 Unknown [id number] 2.16.840.1.247797.3.579. 2.531 Unknown [id number] 2.16.840.1.447838.3.579. 2.531 Unknown [id number] 2.16.840.1.029594.3.579. 2.531 Unknown [id number] 2.16.840.1.620883.3.579. 2.531 Unknown [id number] 2.16.840.1.717083.3.579. 2.531 Unknown [id number] 2.16840.1.592747.3.579. 2.531 Social History Date Type Detail Facility Unknown if ever smoked [facility] Start: 10-17-2020 End: 09-30-2023 Sex Assigned At [facility] Start: 09-11-2021 End: 08-09-2023 Tobacco smoking status NHIS Never smoked tobacco (finding) [facility] Start: 1970 Sex Assigned At Male [facility] Start: 09-23-2022 Tobacco smoking status NHIS Smoker (finding) [facility] Start: 03-02-2023 End: 02-02-2025 Tobacco use and exposure Smokeless tobacco non-user [facility] Start: 10-13-2023 End: 05-22-2025 Alcohol intake Lifetime non-drinker (finding) [facility] [...] Start: 04-11-2015 End: 10-30-2024 Sex Male (finding) [facility] Do you belong to any clubs or organizations such as buddhist groups, unions, fraternal [...] months, were you homeless or living in assisted [including now]? No [facility] Tobacco smoking status [facility] Start: 08-09-2023 Tobacco use and exposure User of smokeless tobacco [facility] [facility] History of tobacco use Chews Tobacco [facility] Start: 04-05-2025 End: 06-08-2025 Alcoholic beverage intake Current non-drinker of alcohol (finding) [facility] Medical Equipment Procedure Code Equipment Code Equipment Origin al Text Equipment Identifier Dates Wound debridement Collagen wound matrix dressing ()[id number] FDA Start: 12-24-2023 Wound debridement Collagen wound matrix dressing ()[id number] FDA Start: 02-04-2024 Wound debridement Collagen wound matrix dressing ()[id number] FDA Start: 02-04-2024 Insertion, catheter, dialysis, peritoneal, laparoscopic Peritoneal dialysis catheter, chronic ()[id number] FDA Start: 11-06-2022 Fluoroscopic guidance for insertion of tunnelled dialysis catheter Double-lumen haemodialysis catheter, implantable +[id number] FDA Start: 09-16-2023 Goals Date Patient Goal Desired Activity /State Functional Status Date Assessment Result Facility 05-22-2025 Patient Health Quest ionnaire 2 item (PHQ-2) [Reported] [facility] 11-23-2023 Functional status Patient at Baseline [facility] Work Phone: 11-07-2022 Functional status Patient at Baseline [facility] Work Phone: [facility] Mental Status Date Assessment Result Facility 11-23-2023 Cognitive function Cognitive Sta tus Patient at Baseline [facility] Work Phone: 11-07-2022 Cognitive function Cognitive Sta tus Patient at Baseline [facility] Work Phone: Clinical Notes 08-21-2021 to 06-13-2025 Telephone Encounter - Estella Kingston CNA - 06/13/2025 4:19 PM EDTTelephone Encounter - Estella Kingston CNA - 06/13/2025 4:19 PM EDTTelephone Encounter - Millie Yepez CMA - 06/01/2025 9:27 AM EDT Note Date & Type Note Facility 06-13-2025 Miscellaneous Notes Ha called inquiring about an increase of his Depakote dosage. He stated the medication is not lasting long enough and his feet begin to hurt. Please advise. documented in this encounter [facility] 06-13-2025 Telephone encounter Note Ha called inquiring about an increase of his Depakote dosage. He stated the medication is not lasting long enough and his feet begin to hurt. Please advise. [facility] 06-11-2025 Note Can you please send CT results to his PCP. Thank you! [facility] 06-09-2025 Note Patient had biopsy p rior negative, will have see ID and urology to see if he canbenefit from tissue sampling if needed, will leave it to urology and pcp to have surveillance since no tissue from onc stand point Ally, please ensure he follows up and ensure his pcp get copy of CT Sivan Keller MD [facility] 06-01-2025 Miscellaneous Notes Patient called into office stating that he has been taking the divalproex as 2 tablets daily since he picked up the medication. Did not read the directions that it should be 1 tablet for the first 14 days. Patient is wanting to know if this will effect anything or if he is needed a refill sent to complete the whole course of medication. Please advise? There is no issue with him taking 2 Depakote tablets at 1 time. I will send in a new prescription so that he will not run short before his next office visit on June 21. Attempted to call patient with provider response. No answer, left message documented in this encounter [facility] 06-01-2025 Telephone encounter Note Patient called into office stating that he has been taking the divalproex as 2 tablets daily since he picked up the medication. Did not read the directions that it should be 1 tablet for the first 14 days. Patient is wanting to know if this will effect anything or if he is needed a refill sent to complete the whole course of medication. Please advise? [facility] 06-01-2025 Telephone encounter Note There is no issue with him taking 2 Depakote tablets at 1 time. I will send in a new prescription so that he will not run short before his next office visit on June 21. [facility] 06-01-2025 Telephone encounter Note Attempted to call patient with provider response. No answer, left message [facility] 05-28-2025 Miscellaneous Notes Evans called to reschedule his Caudal Epidural Steroid Injection. He cancelled 05/25 because he was in the ER. Evans reports that he went to dialysis that morning with high blood pressure and that it dropped too fast during dialysis. At this time he has been rescheduled for 10 without MAC. documented in this encounter [facility] 05-28-2025 Telephone encounter Note Evans called to reschedule his Caudal Epidural Steroid Injection. He cancelled 05/25 because he was in the ER. Evans reports that he went to dialysis that morning with high blood pressure and that it dropped too fast during dialysis. At this time he has been rescheduled for 10 without MAC. [facility] 05-23-2025 History of Present illness Narrative Associated Problem(s): Type 2 diabetes mellitus with peripheral neuropathy (HCC) During the appointment today all pertinent labs, [...] have any problems or questions. Evans Forte blood sugars are worsening. , The patient [...] readings I can better adjust his insulin. Images from the original note were not included. Evans Forte is a 55 y.o. male presents with chief complaint of Medicare Annual Wellness Visit Subsequent HPI: MEDICARE WELLNESS Labs: CBC, BMP (02/02/25) Colonoscopy: 06/20/24 Diabetes Mellitus Follow-up: Evans Forte is here for follow-up evaluation of diabetes mellitus. The initial diagnosis of diabetes was made in 1999 Diabetes complications: retinopathy, renal failure, non-healing ulcers, neuropathy Hx diabetes medications not tolerated: He has been checking his blood glucose with Dexcom on a daily basis. Last A1c: 7.4 (07/11/24) and 6.3 at his last office visit on Last eye exam: 01/07/2024 - [facility] Annual labs: 07/2024 Current concerns include: Diaylisis 3 days a week. He is waiting on the urologist approval before he can get back on the transplant list. Without lyrica for a week- he takes this for neuropathy in his feet Has been seeing pain management at [facility]- had a epidural in his lower back which helped with his foot pain. He is scheduled to have another injection on 05/25. They are prescribing nortriptyline also. He feels like his neuropathy is finally getting under better control with the injection and medications. He still has pain and some days are worse than others but he feels he will be able to get around more now. Didn't bring the dexcom reader- waiting on refills to come in last checked 5 -6 days ago and it was 280's BG levels: hopefully bg levels are similar to last visit Diet: no sugar, salt, potassium,or phosphorus. Mainly Protein and vegetables, low carbs Drinks: water, 1 cans of regular mountain dew Exercise: starting to walking since his foot pain is controlled Hypoglycemia: once a week wilma [place] 3am Has been to the ER numerous times for Neuropathic pain in feet. His last seen on 05/18 and they gave him 5 lyrica tablets List of current healthcare providers: Patient Care Team: Idania Ricketts, as PCP - General (Family Medicine) Medicare Annual Visit Over the past 2 weeks, how often have you been bothered by any of the following problems? Little interest or pleasure in doing things: Not at all Feeling down, depressed, or hopeless: Not at all Patient Health Questionnaire-2 Score: 0 Over the past 2 weeks, how often have you been bothered by any of the following problems? Trouble falling or staying asleep, or sleeping too much: Not at all Park Fall Risk History of Falling, Immediate or Within 3 Months: No Health Risk Assessment Form Do you need help eating, bathing, using the toilet, dressing, or getting around your home?: No Can you prepare your own meals?: Yes Can you do your own housework without help?: Yes Can you shop for groceries or clothes without help?: Yes Do you exercise for about 20 minutes 3 or more days a week?: No How confident are you that you can control and manage most of your health problems?: Very confident Can you mange your money, credit cards and accounts, pay bills and taxes?: Yes Cognitive Screening Self Assessment: No overt cognitive deficiency is apparent by direct observation Pain Assessment Pain Score: 3 The following health maintenance schedule was reviewed with the patient and provided in printed form in the after visit summary: Health Maintenance Topic Date Due Diabetes: Urine Protein Screening 05/19/2022 Diabetes: Retinopathy Screening 01/06/2025 Influenza Vaccine (1) 05/07/2025 Diabetes: Hemoglobin A1C 08/21/2025 Medicare Annual Wellness (AWV) 05/22/2026 Colorectal Cancer Screening 06/20/2034 Orders Placed This Encounter Procedures Lipid panel Print requisition?: Yes Microalbumin / creatinine urine ratio Print requisition?: Yes Comprehensive metabolic panel Print requisition?: Yes CBC and differential Print requisition?: Yes TSH Print requisition?: Yes PSA Standing Status: Future Number of Occurrences: 1 Expected Date: 05/22/2025 Expiration Date: 05/22/2026 Print requisition?: Yes POCT glycosylated hemoglobin (Hb A1C) docked device SUBJECTIVE: PROBLEM LIST SOCIAL ALLERGIES: Patient Active Problem List Diagnosis Acquired hypothyroidism Anxiety Dependence on renal dialysis End stage renal disease (HCC) Essential hypertension Obstructive sleep apnea syndrome Peripheral vascular disease Insomnia Pure hypercholesterolemia Type 2 diabetes mellitus with foot ulcer (HCC) 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) Vitamin D deficiency Type 2 diabetes mellitus with peripheral neuropathy (HCC) 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, with long-term current use of insulin (HCC) Long-term insulin use (HCC) Class 3 severe obesity due to excess calories with serious comorbidity and body mass index (BMI) of 40.0 to 44.9 in adult (CMS-HCC) Hx of amputation of lesser toe, left (HHS-HCC) Adenoma of left adrenal gland Chronic kidney disease with end stage renal disease on dialysis due to type 2 diabetes mellitus (HCC) Erectile dysfunction Hypoglycemia due to type 2 diabetes mellitus (HCC) Hypogonadism male Iron deficiency anemia Past history of chewing tobacco use Venous stasis dermatitis Lymphedema Social History Tobacco Use Smoking status: Never Smokeless tobacco: Never Vaping Use Vaping status: Never Used Substance Use Topics Alcohol use: Never Comment: caffeine: more than 4 cups per day coffee Drug use: Never Allergies Allergen Reactions Latex Rash Other Reaction(s): Unknown If on for long periods of time Vancomycin Hives Haloperidol Anxiety Milam Oil GI intolerance Runny nose, watery eyes Wound Dressing Adhesive Rash Synopsis [facility] 05/23/2025 00:00 05/22/2025 05/16/2025 00:00 Antidiabetic medications Glucagon 1 mg Once PRN SC (1 MG/0.2ML SOAJ) 1 mg Once PRN SC (1 MG/0.2ML SOAJ) Inject 1 mg under the skin 1 (one) time if needed for low blood sugar Insulin Glargine 50 Units q AM SC -Discontinued Insulin Glargine ADMINISTER 50 UNITS UNDER THE SKIN IN THE MORNING (100 UNIT/ML SOPN)-Discontinued ADMINISTER 50 UNITS UNDER THE SKIN IN THE MORNING (100 UNIT/ML SOPN) ADMINISTER 50 UNITS UNDER THE SKIN IN THE MORNING (100 UNIT/ML SOPN) Insulin Glargine 60 Units Daily SC Insulin Lispro INJECT 10 UNITS UNDER THE SKIN WITH BREAKFAST, 25 UNITS WITH LUNCH AND DINNER AND 10-15 UNITS WITH SNACKS PLUS CORRECTION. MAX OF 100 UNITS DAILY (100 UNIT/ML SOPN)-Discontinued (Dose adjustm) INJECT 10 UNITS UNDER THE SKIN WITH BREAKFAST, 25 UNITS WITH LUNCH AND DINNER AND 10-15 UNITS WITH SNACKS PLUS CORRECTION. MAX OF 100 UNITS DAILY (100 UNIT/ML SOPN) INJECT 10 UNITS UNDER THE SKIN WITH BREAKFAST, 25 UNITS WITH LUNCH AND DINNER AND 10-15 UNITS WITH SNACKS PLUS CORRECTION. MAX OF 100 UNITS DAILY (100 UNIT/ML SOPN) Insulin Lispro INJECT 15 UNITS UNDER THE SKIN WITH BREAKFAST, 30 UNITS WITH LUNCH AND DINNER AND 10-15 UNITS WITH SNACKS PLUS CORRECTION 2:30 > 150 mg/dl (MAX OF 100 UNITS DAILY) (100 UNIT/ML SOPN) Tirzepatide 10 mg Weekly SC (10 MG/0.5ML SOAJ)-Discontinued (Ineffective) 10 mg Weekly SC (10 MG/0.5ML SOAJ) [place] [facility] [place] A1C/HEMOGLOBIN.TOTAL:MFR:PT:BLD:QN : 8.6 Outpatient prescription Medication marked as long-term Patient-reported The 10-year ASCVD risk score (Matt SHAFER, et al., 2019) is: 15.8% Values used to calculate the score: Age: 55 years Sex: Male Is Non- : No Diabetic: Yes Tobacco smoker: No Systolic Blood Pressure: 148 mmHg Is BP treated: No HDL Cholesterol: 34 mg/dL Total Cholesterol: 186 mg/dL REVIEW OF SYMPTOMS: Review of Systems Constitutional: Positive for fatigue. Negative for appetite change, fever and unexpected weight change. HENT: Negative for congestion, ear pain, sinus pain, sore throat and trouble swallowing. Eyes: Negative for pain and visual disturbance. Respiratory: Negative for cough, shortness of breath and wheezing. Cardiovascular: Negative for chest pain, palpitations and leg swelling. No orthopnea Gastrointestinal: Negative for abdominal pain, blood in stool, constipation, diarrhea, nausea and vomiting. Genitourinary: Negative for dysuria and frequency. Musculoskeletal: Positive for arthralgias and back pain. Negative for myalgias. Skin: Negative for rash and wound. Neurological: Positive for weakness, light-headedness and numbness. Negative for dizziness, tremors, seizures, syncope and headaches. Psychiatric/Behavioral: Positive for sleep disturbance. Negative for confusion, hallucinations and suicidal ideas. The patient is not nervous/anxious. Hematological: Negative for adenopathy. OBJECTIVE: 05/22/2025 3:36 PM 12/05/2024 1:42 PM 10/02/2024 1:39 PM Vitals BMI 41.98 kg/m2 40.7 kg/m2 39.42 kg/m2 Systolic 148 134 110 Diastolic 82 80 64 Heart Rate 76 82 85 Temp 98.8 F 98.3 F 98.4 F Height (in) 6' 2 6' 2 6' 2 Weight (lb) 327 317 307 Visit Report Report Report Report Physical Exam Vitals reviewed. Constitutional: General: He is not in acute distress. Appearance: He is obese. HENT: Head: Normocephalic. Right Ear: Tympanic membrane and ear canal normal. Left Ear: Tympanic membrane and ear canal normal. Mouth/Throat: Mouth: Mucous membranes are moist. Pharynx: No posterior oropharyngeal erythema. Eyes: Extraocular Movements: Extraocular movements intact. Pupils: Pupils are equal, round, and reactive to light. Cardiovascular: Rate and Rhythm: Normal rate and regular rhythm. Pulses: Normal pulses. Heart sounds: Normal heart sounds. No murmur heard. No friction rub. No gallop. Pulmonary: Breath sounds: Normal breath sounds. No wheezing, rhonchi or rales. Abdominal: General: Bowel sounds are normal. There is no distension. Palpations: Abdomen is soft. Tenderness: There is no abdominal tenderness. There is no guarding or rebound. Musculoskeletal: General: No swelling. Lymphadenopathy: Cervical: No cervical adenopathy. Skin: Findings: No lesion or rash. Neurological: General: No focal deficit present. Mental Status: He is alert and oriented to person, place, and time. Cranial Nerves: No cranial nerve deficit. Motor: No weakness. Deep Tendon Reflexes: Reflexes normal. Psychiatric: Mood and Affect: Mood normal. ASSESSMENT AND PLAN: Problem List Items Addressed This Visit Acquired hypothyroidism Relevant Orders TSH Anxiety Dependence on renal dialysis End stage renal disease (HCC) Essential hypertension Relevant Orders CBC and differential Obstructive sleep apnea syndrome Peripheral vascular disease Pure hypercholesterolemia Relevant Orders Lipid panel Comprehensive metabolic panel 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) Relevant Medications insulin glargine (Lantus SoloStar) 100 UNIT/ML pen insulin lispro (HumaLOG KWIKPEN) 100 UNIT/ML injection Type 2 diabetes mellitus with peripheral neuropathy (HCC) During the appointment today all pertinent labs, [...] have any problems or questions. Evans Forte blood sugars are worsening. , The patient [...] readings I can better adjust his insulin. Relevant Medications pregabalin (Lyrica) 150 MG capsule Other Relevant Orders POCT glycosylated hemoglobin (Hb A1C) docked device (Completed) Microalbumin / creatinine urine ratio 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, with long-term current use of insulin (HCC) Long-term insulin use (HCC) Hx of amputation of lesser toe, left (HHS-HCC) Chronic kidney disease with end stage renal disease on dialysis due to type 2 diabetes mellitus (HCC) Iron deficiency anemia Other Visit Diagnoses Medicare annual wellness visit, subsequent - Primary Screening for prostate cancer Relevant Orders PSA Neuropathy Relevant Medications pregabalin (Lyrica) 150 MG capsule At today's [facility] maintanence appointment I reviewed the patients past medical history along with any laboratory and diagnostic testing preformed prior to the visit. During the visit, health care maintanence was reviewed and recommendations made specifically for the patient based on their risk factors. Current colon cancer screening: up-to-date with colonoscopy, PSA screening, Blood work: routine blood work ordered. Finally the patient was instructed to call the office if any health issues arise until the next well check/appointment. At the conclusion of the visit all questions were answered which were brought forth. Encouraged living a healthy lifestyle including a healthy diet and regular exercise. Follow up in about 3 months (around 08/21/2025) for Recheck. Patient's Medications New Prescriptions No medications on file Previous Medications ANASTROZOLE (ARIMIDEX) 1 MG CHEMO TABLET take 1 tablet by mouth every morning (SWALLOW WHOLE WITH A DRINK OF WATER) ASPIRIN 81 MG CHEWABLE TABLET Chew 81 mg in the morning. ATORVASTATIN (LIPITOR) 20 MG TABLET TAKE 1 TABLET(20 MG) BY MOUTH IN THE MORNING B COMPLEX-FOLIC ACID TABLET Take 1 tablet by mouth Daily BUMETANIDE (BUMEX) 2 MG TABLET TAKE 1 TABLET(2 MG) BY MOUTH DAILY CALCITRIOL (ROCALTROL) 0.25 MCG CAPSULE Take 0.25 mcg by mouth in the morning. CALCIUM ACETATE (PHOSLO) 667 MG TABLET Take 667 mg by mouth in the morning and 667 mg at noon and 667 mg in the evening. Take with meals. CARVEDILOL (COREG) 12.5 MG TABLET Take 12.5 mg by mouth in the morning and 12.5 mg in the evening. Take with meals. CHOLECALCIFEROL (D3-5) 5,000 UNITS TABLET Daily. CONTINUOUS BLOOD GLUC MANAGER MASSAGE DEPARTMENT (DEXCOM G7 MANAGER MASSAGE DEPARTMENT) DEVICE 1 (one) time each day at the same time. CONTINUOUS BLOOD GLUC SENSOR (DEXCOM G7 SENSOR) MISC as directed every 10 days for 90 days CYANOCOBALAMIN (VITAMIN B-12) 1000 MCG TABLET Daily GLUCAGON (GVOKE HYPOPEN) 1 MG/0.2ML INJECTION Inject 1 mg under the skin 1 (one) time if needed for low blood sugar LEVOTHYROXINE (SYNTHROID, LEVOXYL) 100 MCG TABLET TAKE 1 TABLET BY MOUTH EVERY MORNING BEFORE A MEAL MIDODRINE (PROAMATINE) 10 MG TABLET TAKE 1 TABLET BY MOUTH NEEDED DURING DIALYSIS FOR BLOOD PRESSURE SUPPORT NORTRIPTYLINE (PAMELOR) 25 MG CAPSULE Take 25 mg by mouth Daily SEVELAMER CARBONATE (RENVELA) 800 MG TABLET TAKE 2 TABLETS BY MOUTH THREE TIMES DAILY WITH MEALS XPHOZAH 30 MG TABLET Take 30 mg by mouth in the morning and 30 mg before bedtime. Modified Medications Modified Medication Previous Medication INSULIN GLARGINE (LANTUS SOLOSTAR) 100 UNIT/ML PEN insulin glargine (Lantus SoloStar) 100 UNIT/ML pen Inject 60 Units under the skin Daily ADMINISTER 50 UNITS UNDER THE SKIN IN THE MORNING INSULIN LISPRO (HUMALOG KWIKPEN) 100 UNIT/ML INJECTION insulin lispro (HumaLOG KWIKPEN) 100 UNIT/ML injection INJECT 15 UNITS UNDER THE SKIN WITH BREAKFAST, 30 UNITS WITH LUNCH AND DINNER AND 10-15 UNITS WITH SNACKS PLUS CORRECTION 2:30 > 150 mg/dl (MAX OF 100 UNITS DAILY) INJECT 10 UNITS UNDER THE SKIN WITH BREAKFAST, 25 UNITS WITH LUNCH AND DINNER AND 10-15 UNITS WITH SNACKS PLUS CORRECTION. MAX OF 100 UNITS DAILY PREGABALIN (LYRICA) 150 MG CAPSULE pregabalin (Lyrica) 150 MG capsule Take 1 capsule (150 mg) by mouth in the morning and 1 capsule (150 mg) before bedtime. TAKE 1 CAPSULE BY MOUTH EVERY MORNING AND EVERY NIGHT AT BEDTIME Discontinued Medications AMITRIPTYLINE (ELAVIL) 10 MG TABLET Take 20 mg by mouth at bedtime LORAZEPAM (ATIVAN) 1 MG TABLET Take 1 [...] 1 TABLET(50 MG) BY MOUTH AT BEDTIME I have reviewed and reconciled the history and medication list with the patient today. documented in this encounter [facility] 05-19-2025 Evaluation + Plan note Associated Problem(s): Neuropathic pain of both feet Patient describes worsening neuropathy in his feet [...] changes due to renal disease ordered hemodialysis. [facility] 05-19-2025 Miscellaneous Notes Associated Problem(s): Neuropathic pain of both feet Patient describes worsening neuropathy in his feet [...] changes due to renal disease ordered hemodialysis. Associated Problem(s): Obesity, morbid ([facility]) Obesity is improving. Patient has been losing weight. Encouraged patient to continue to do so. Associated Problem(s): ESRD (end stage renal disease) on dialysis ([facility]) Patient's renal status is stable. Continue to follow with Nephrology and perform kidney dialysis on Mondays, Wednesdays and Fridays documented in this encounter [facility] 05-19-2025 Evaluation + Plan note Associated Problem(s): Obesity, morbid ([facility]) Obesity is improving. Patient has been losing weight. Encouraged patient to continue to do so. [facility] 05-19-2025 Evaluation + Plan note Associated Problem(s): ESRD (end stage renal disease) on dialysis ([facility]) Patient's renal status is stable. Continue to follow with Nephrology and perform kidney dialysis on Mondays, Wednesdays and Fridays [facility] 05-17-2025 History of Present illness Narrative Images from the original note were not included. [facility] [address] [place] [address] [place] [address] Patient: Evans Forte Jr. Date of : 1970 Encounter Date: 05/17/2025 Subjective: Chief Complaint Chief Complaint Patient presents with Establish Care History of Present Illness Evans Forte Jr. is a 55 y.o. male, NEW patient, that presents to the office to establish care. History provided by patient. Pain This is a chronic problem. The problem has been gradually worsening (Patient states that over the last few months his nocturnal neuropathy pain has been significantly worsening.). Associated symptoms comments: Has neuropathy in feet bilaterally on dorsum and plantar surface of foot. He states that walking and pressure does help with discomfort. Pain worse at nighttime and affects his ability to sleep He states that has tried several different topical medications including lidocaine, capsacin and qutenza in addition to several different oral medications including duloxetine,amitriptyline, . Treatments tried: Patient has been on several oral and topical medications that have not been effective for pain control.. Currently patient on Lyrica 150 mg 1 tablet twice daily. Review of Systems Review of Systems Cardiovascular: Positive for leg swelling (Right leg worse than left leg as had previous lymph node biopsy on right side). Genitourinary: Patient on hemodialysis for end-stage renal disease. Patient's dialysis days are Wednesday- Wednesday- Wednesday. Patient states that he does experience fatigue after dialysis but that fatigue improves by the following day. Vital Signs BP (!) 146/96 (BP Site: Left Arm, BP Postition: Sitting) Pulse 77 Temp 36.8 C (98.2 F) (Oral) Ht 182 cm (5' 11.65 ) Wt (!) 147.8 kg (325 lb 12.8 oz) SpO2 96% BMI 44.61 kg/m Physical Exam Physical Exam Past Medical, Family, Surgery and Social History Past Medical History: Diagnosis Date CKD (chronic kidney disease) hd on m-w-f 5-9am via left avf Diabetes mellitus ([facility]) Diabetes mellitus type 2, controlled ([facility]) Hyperlipidemia Hypothyroid Obesity Past Surgical History: Procedure Laterality Date CARDIAC CATHETERIZATION 12/2024 last one (2 total) FISTULA CREATION Left FOOT SURGERY Right INJECTION BLOCK EPIDURAL CAUDAL STEROID N/A 04/27/2025 Performed by Alec Jacobson MD at [facility] Family History Problem Relation Age of Onset [...] Resource Strain: Medium Risk (12/05/2024) Received from [facility] Overall Financial Resource Strain (CARDIA) Difficulty of Paying Living Expenses: Somewhat hard Food Insecurity: No Food Insecurity (05/18/2025) Hunger Screening Food Insecurity - Worry: Never True Food Insecurity - Inability: Never True Transportation Needs: No Transportation Needs (12/05/2024) Received from [facility] PRAPARE - Transportation Lack of Transportation (Medical): No Lack of Transportation (Non-Medical): No Physical Activity: Insufficiently Active (12/05/2024) Received from [facility] Exercise Vital Sign Days of Exercise per Week: 3 days Minutes of Exercise per Session: 30 min Stress: Stress Concern Present (12/05/2024) Received from [facility] [place] [employer] - Occupational Stress Questionnaire Feeling of Stress : To some extent Social Connections: Socially Integrated (12/05/2024) Received from [facility] Social Connection and Isolation Panel [NHANES] Frequency of Communication with Friends and Family: More than three times a week Frequency of Social Gatherings with Friends and Family: Three times a week Attends Jewish Services: 1 to 4 times per year Active Member of Clubs or Organizations: Yes Attends Club or Organization Meetings: 1 to 4 times per year Marital Status: Interpersonal Safety: Not At Risk (12/21/2024) Received from [facility] Humiliation, Afraid, Rape, and Kick questionnaire Fear of Current or Ex-Partner: No Emotionally Abused: No Physically Abused: No Sexually Abused: No Housing Instability: High Risk (12/05/2024) Received from [facility] Housing Stability Vital Sign Unable to Pay for Housing in the Last Year: Yes Number of Times Moved in the Last Year: Not on file Homeless in the Last Year: No Allergies and Current Medications Allergies Allergen Reactions Adhesive Tape-Silicones Rash Latex Rash If on for long periods of time Other Reaction(s): Unknown If on for long periods of time Vancomycin Hives Haloperidol Anxiety Milam Seed Abdominal Pain Runny nose, watery eyes Current Outpatient Medications on File Prior to Visit Medication Sig aspirin 81 mg chewable tablet Chew 1 tablet (81 mg total) and swallow in the morning. atorvastatin (LIPITOR) 20 mg tablet Take 1 tablet (20 mg total) by mouth in the morning. calcitrioL (ROCALTROL) 0.25 MCG capsule Take 1 capsule (0.25 mcg total) by mouth. levothyroxine sodium (TIROSINT) 25 mcg capsule Take 3 capsules (75 mcg total) by mouth in the morning. lisinopril (PRINIVIL,ZESTRIL) 10 mg tablet Take 1 tablet (10 mg total) by mouth in the morning. NON FORMULARY Take 1 mg by mouth in the morning. Med Name: anaotrozole . nortriptyline (PAMELOR) 25 mg capsule Take 1 capsule (25 mg total) by mouth nightly. No current facility-administered medications on file prior to visit. Labs and Imaging Lab Results Component Value Date WBC 11.4 (H) 08/09/2023 HGB 9.7 (L) 08/09/2023 HCT 29.2 (L) 08/09/2023 PLT 291 08/09/2023 ALT 33 08/09/2023 AST 23 08/09/2023 K 4.0 08/09/2023 CL 113 (H) 08/09/2023 CREATININE 9.85 (H) 08/09/2023 BUN 58 (H) 12/30/2024 CO2 19 (L) 08/09/2023 Fluoroscopy less than one hour No Reading Required. This procedure does not require a formal dictation. Non-Radiologist provider performed procedures can be reviewed under Post-Op, Procedure or Progress notes. For full report details, please reach out to your physician. Effective 01/21/2021 this image will be visible to you in [employer]. Assessment/Plan: 1. Neuropathic pain of both feet - divalproex (DEPAKOTE) 125 mg EC tablet; Take 1 tablet (125 mg total) by mouth nightly for 14 days, THEN 2 tablets (250 mg total) nightly for 14 days. Dispense: 42 tablet; Refill: 0 2. Obesity, morbid ([facility]) 3. ESRD (end stage renal disease) on dialysis ([facility]) - calcium acetate,phosphat bind, (PHOSLO) 667 mg tablet; Take 1 tablet (667 mg total) by mouth in the morning and 1 tablet (667 mg total) at noon and 1 tablet (667 mg total) in the evening. Take with meals. - sevelamer (RENVELA) 800 mg tablet; Take 2 tablets (1,600 mg total) by mouth in the morning and 2 tablets (1,600 mg total) at noon and 2 tablets (1,600 mg total) in the evening. Take with meals. ESRD (end stage renal disease) on dialysis ([facility]) Patient's renal status is stable. Continue to follow with Nephrology and perform kidney dialysis on Mondays, Wednesdays and Fridays Obesity, morbid ([facility]) Obesity is improving. Patient has been losing weight. Encouraged patient to continue to do so. Neuropathic pain of both feet Patient describes worsening neuropathy in his feet [...] changes due to renal disease ordered hemodialysis. Patient noted to have elevated BMI and the following intervention(s) were applied: encouragement to exercise . Follow-up: One-month neuropathy of the feet - Tyesha Apple DO 05/19/25 9:42 PM documented in this encounter [facility] 05-11-2025 Note Education Materials Orthopedics Foot Pain [...] clean and dry. General instructions ? Take ufaa-psn-gwkjvva and prescription medicines only as told by [...] provider. Document Revised: 09/16/2023 Document Reviewed: 05/25/2023 streamOnce Patient Education ? 2024 [employer] [facility] 05-11-2025 Miscellaneous Notes Pts. called in to inform office that [...] to what patient can do for pain? Not much else to do right now other than wait for caudal and qutenza. On 05/15/2025 I attempted to initiate another Qutenza PA, it was canceled as a denial was previously in place. Called , no answer. LM with providers response on her voicemail. documented in this encounter [facility] 05-11-2025 Telephone encounter Note Pts. called in to inform office that [...] to what patient can do for pain? [facility] 05-11-2025 Telephone encounter Note Not much else to do right now other than wait for caudal and qutenza. [facility] 05-11-2025 Telephone encounter Note On 05/15/2025 I attempted to initiate another Qutenjoshua PA, it was canceled as a denial was previously in place. Called , no answer. LM with providers response on her voicemail. [facility] 05-10-2025 History of Present illness Narrative [facility] [address] [place] [address] Patient: Evans Forte Jr. Sex: male : 1970 Age: 55 y.o. PCP: IDANIA RICKETTS, 05/10/2025 Evans Forte Jr. is here for [...] 5-9am via left avf Diabetes mellitus ([facility]) Diabetes mellitus type 2, controlled ([facility]) Hyperlipidemia Hypothyroid Obesity Past Surgical History: Procedure Laterality Date CARDIAC CATHETERIZATION 12/2024 last one (2 total) FISTULA CREATION Left FOOT SURGERY Right INJECTION BLOCK EPIDURAL CAUDAL STEROID N/A 04/27/2025 Performed by Alec Jacobson MD at [facility] Allergies Allergen Reactions Adhesive Tape-Silicones Rash Latex Rash If on for long periods of time Other Reaction(s): Unknown If on for long periods of time Vancomycin Hives Haloperidol Anxiety Milam Seed Abdominal Pain Runny nose, watery eyes [...] Resource Strain: Medium Risk (12/05/2024) Received from [facility] Overall Financial Resource Strain (CARDIA) Difficulty of Paying Living Expenses: Somewhat hard Food Insecurity: No Food Insecurity (05/10/2025) Hunger Screening Food Insecurity - Worry: Never True Food Insecurity - Inability: Never True Transportation Needs: No Transportation Needs (12/05/2024) Received from [facility] PRAPARE - Transportation Lack of Transportation (Medical): No Lack of Transportation (Non-Medical): No Physical Activity: Insufficiently Active (12/05/2024) Received from [facility] Exercise Vital Sign Days of Exercise per Week: 3 days Minutes of Exercise per Session: 30 min Stress: Stress Concern Present (12/05/2024) Received from [facility] [place] [employer] - Occupational Stress Questionnaire Feeling of Stress : To some extent Social Connections: Socially Integrated (12/05/2024) Received from [facility] Social Connection and Isolation Panel [NHANES] Frequency of Communication with Friends and Family: More than three times a week Frequency of Social Gatherings with Friends and Family: Three times a week Attends Jewish Services: 1 to 4 times per year Active Member of Clubs or Organizations: Yes Attends Club or Organization Meetings: 1 to 4 times per year Marital Status: Interpersonal Safety: Not At Risk (12/21/2024) Received from [facility] Humiliation, Afraid, Rape, and Kick questionnaire Fear of Current or Ex-Partner: No Emotionally Abused: No Physically Abused: No Sexually Abused: No Housing Instability: High Risk (12/05/2024) Received from [facility] Housing Stability Vital Sign Unable to Pay [...] BP medications on dialysis days which are Meycyi-Olweqthcw-Yaeoql and today he forgot to take them. [...] Box 05/15/25 1233 documented in this encounter [facility] 05-10-2025 Instructions Minda Paiz CNA - 05/10/2025 [...] a safety precaution, you must have a cdl driver after a lumbar nerve root injection, [...] back to normal. documented in this encounter [facility] [place] [facility] 04-26-2025 Hospital Discharge instructions Magali Alas APRN - CNP - 04/26/2025 2:14 PM EDT Keep your appointment as scheduled for tomorrow afternoon with pain management, you were prescribed [place] here for the interim, be advised that the emergency department will not refill pain medication for chronic problem again, return for worsening symptoms The following attachments cannot be sent through Care Everywhere.Chronic Pain (Ghanaian)documented in this encounter [facility] 04-06-2025 Miscellaneous Notes Patient calls and asks [...] with Charla rojo, requests prescription send to [facility] pharmacy in [place]. done Not done done [facility] pharmacy called and stated that [...] is not appropriate for you. Reviewed by: [facility]. If the treating physician would like to discuss this coverage decision with the physician or health healthcare insurance sales agent reviewer, please call [facility] Rx Prior Authorization department at 1- [phone]. How would you like to proceed? 1105 [...] this Wednesday, 04/27. Called Dr Nancy Altman ([facility] nephrology [phone]) requesting clearance for pt to start nortriptyline [...] review and signing. Patient notified. Sent to [facility] pharmacy in [place]. 1047 spoke with Guilherme @ [facility] pharmacy; she put the Nortriptyline back on the patient's profile, we can call the [place] location and have them pull it. 1050 spoke with Bari, they are able to pull the RX and fill it. documented in this encounter [facility] 04-06-2025 Telephone encounter Note Patient calls and [...] little to no relief with OTC Tylenol. [facility] 04-06-2025 Telephone encounter Note Spoke with Charla rojo, requests prescription send to [facility] specialty pharmacy in [place]. [facility] 04-06-2025 Telephone encounter Note done [facility] 04-06-2025 Telephone encounter Note Not done [facility] 04-06-2025 Telephone encounter Note done [facility] 04-06-2025 Telephone encounter Note [facility] specialty pharmacy called and stated that the prior auth for pt's Qutenza has been denied. [facility] 04-06-2025 Telephone encounter Note Noted let patient know [facility] 04-06-2025 Telephone encounter Note This is the [...] is not appropriate for you. Reviewed by: [facility]. If the treating physician would like to discuss this coverage decision with the physician or health healthcare insurance sales agent reviewer, please call [employer] Prior Authorization department at 1- [phone]. How would you like to proceed? [facility] 04-06-2025 Telephone encounter Note 1105 patient stopped [...] for a caudal AMBER this Wednesday, 04/27. [facility] 04-06-2025 Telephone encounter Note Called Dr Nancy Altman ([facility] nephrology [phone]) requesting clearance for pt to start nortriptyline 25 mg at HS. Spoke with Cory, he will send message and call back with response. [facility] 04-06-2025 Telephone encounter Note noted [facility] 04-06-2025 Telephone encounter Note 9:25 AM TC from WILIAN Koenig at Dr. Altamn's nephrology office. Per Dr. Altman, ok for patient to start Nortriptyline 25 mg at HS from nephrology standpoint. If Dr. Jacobson has additional questions, he can contact Dr. Altman. RX prepared and ready for review and signing. [facility] 04-06-2025 Telephone encounter Note Patient notified. [facility] 04-06-2025 Telephone encounter Note Sent to [facility] pharmacy in [place]. 1047 spoke with Guilherme @ [facility] pharmacy; she put the Nortriptyline back on the patient's profile, we can call the [place] location and have them pull it. 1050 spoke with Bari, they are able to pull the RX and fill it. [facility] 04-05-2025 History of Present illness Narrative [facility] [address] [place] [address] Patient: Evans Forte Jr. Sex: male : [...] on 5-9am via left avf Diabetes mellitus ([facility]) Diabetes mellitus type 2, controlled ([facility]) Hyperlipidemia Hypothyroid Obesity Past Surgical History: Procedure Laterality Date CARDIAC CATHETERIZATION 12/2024 last one (2 total) FISTULA CREATION Left FOOT SURGERY Right Allergies Allergen Reactions Vancomycin Hives Milam Seed Abdominal Pain Runny nose, watery eyes [...] Resource Strain: Medium Risk (12/05/2024) Received from [facility] Overall Financial Resource Strain (CARDIA) Difficulty of Paying Living Expenses: Somewhat hard Food Insecurity: No Food Insecurity (04/05/2025) Hunger Screening Food Insecurity - Worry: Never True Food Insecurity - Inability: Never True Transportation Needs: No Transportation Needs (12/05/2024) Received from [facility] PRAPARE - Transportation Lack of Transportation (Medical): No Lack of Transportation (Non-Medical): No Physical Activity: Insufficiently Active (12/05/2024) Received from [facility] Exercise Vital Sign Days of Exercise per Week: 3 days Minutes of Exercise per Session: 30 min Stress: Stress Concern Present (12/05/2024) Received from [facility] [place] [facility] [employer] - Occupational Stress Questionnaire Feeling of Stress : To some extent Social Connections: Socially Integrated (12/05/2024) Received from [facility] Social Connection and Isolation Panel [NHANES] Frequency of Communication with Friends and Family: More than three times a week Frequency of Social Gatherings with Friends and Family: Three times a week Attends Jewish Services: 1 to 4 times per year Active Member of Clubs or Organizations: Yes Attends Club or Organization Meetings: 1 to 4 times per year Marital Status: Interpersonal Safety: Not At Risk (12/21/2024) Received from [facility] Humiliation, Afraid, Rape, and Kick questionnaire Fear of Current or Ex-Partner: No Emotionally Abused: No Physically Abused: No Sexually Abused: No Housing Instability: High Risk (12/05/2024) Received from [facility] Housing Stability Vital Sign Unable to Pay [...] BLOCK EPIDURAL CAUDAL STEROID Diabetic peripheral neuropathy ([facility]) PLAN IN OFFICE QTENZA 8% PATCH APPLICATION [...] Box 04/05/25 1155 documented in this encounter [facility] 04-05-2025 Instructions Minda Paiz CNA - 04/05/2025 [...] a safety precaution, you must have a cdl driver after a lumbar nerve root injection, [...] back to normal. documented in this encounter [facility] 03-26-2025 Hospital Discharge instructions Additional Instructions Very [...] a primary care provider, you can contact [facility] Services and ask about being established for primary care services. If you require specialist follow up, such as with an orthopedic physician, adventure guide, urologist, or other medical specialty, you should [...] should first take Tylenol or ibuprofen available mfyj-mdv-izqesrp. Medications, if prescribed to treat pain from [...] or if you have any other concerns [facility] Work Phone: 02-13-2025 Evaluation note Diagnosis Onset Date Resolution Diabetic peripheral neuropathy acute February 13, 2025 8:20am Lumbar radiculopathy acute February 13, 2025 8:20am Other chronic pain acute February 042024 8:20am Lumbar radiculopathy acute March 07, 2025 3:40pm Other chronic pain acute March 072024 3:40pm [facility] Work Phone: [phone]) 525-130205-30-2025 Hospital Discharge instructions Patient Education 02/02/2025 18:32:46 [...] relieve pain. Medicines may include: ?Prescription or uycf-veb-fzftyul pain medicine. ?Anti-seizure medicine. ?Antidepressants. ?Pain-relieving patches that are applied to painful areas of skin. Surgery to relieve pressure on a nerve or to destroy a nerve that is causing pain. Physical therapy to help improve movement and balance. Devices to help you move around (assistive devices). Follow these instructions at home: Medicines Take lyfa-kxp-qngunyi and prescription medicines only as told by [...] important. Where to find more information [place] of Neurological Disorders: www.ninds.nih.gov Contact a health [...] provider. Document Revised: 04/28/2022 Document Reviewed: 04/28/2022 streamOnce Patient Education 2023 [employer] 02/02/2025 18:32:46 Acute Pain, Adult Acute Pain, [...] Follow these instructions at home: Medicines Take fmmv-jhp-vbnhgig and prescription medicines only as told by [...] pain is severe. ?Do not take other glib-tef-ukgpxmi pain medicines in addition to prescription pain [...] to keep your urine pale yellow. Take srwx-yvq-xvkytlg or prescription medicines. Eat foods that are [...] provider. Document Revised: 03/17/2023 Document Reviewed: 03/17/2023 streamOnce Patient Education 2023 [employer] 02/02/2025 18:32:46 Neuropathic Pain Neuropathic Pain Neuropathic [...] this treated? Treatment for neuropathic pain may roving changer time. You may need to try different treatment options or a combination of treatments. Some options include: Treating the underlying cause of the neuropathy, such as diabetes, kidney disease, or vitamin deficiencies. Stopping medicines that can cause neuropathy, such as chemotherapy. Medicine to relieve pain. Medicines may include: ?Prescription or oiiv-pby-sznkleg pain medicine. ?Anti-seizure medicine. ?Antidepressant medicines. ?Pain-relieving [...] Follow these instructions at home: Medicines Take fvoa-iwb-zmlzwvg and prescription medicines only as told by your health care provider. Ask your health care provider if the medicine prescribed to you: ?Requires you to avoid driving or using machinery. ?Can cause constipation. You may need to take these actions to prevent or treat constipation: ?Drink enough fluid to keep your urine pale yellow. ?Take iipb-rbu-mzthewh or prescription medicines. ?Eat foods that are [...] the National Suicide Prevention Lifeline at or 343. This is open 24 hours a day. Text the Crisis Text Line at 875528. Summary Neuropathic pain is pain caused by [...] provider. Document Revised: 04/20/2022 Document Reviewed: 04/20/2022 [employer] Patient Education 2023 [employer] Follow Up Care 02/02/2025 18:06:53 With:IDANIA RICKETTS Address: [address], [place] [address]- Business (1) When:02/05/2025 18:24:24 Comments:Call Dr for diagnosis based follow up [facility] 05-30-2025 NoteED Patient Education Note Neurology [...] pain. Medicines may include: ? Prescription or pvei-twa-vjgavox pain medicine. ? Anti-seizure medicine. ? Antidepressants. ? Pain-relieving patches that are applied to painful areas of skin. ??? Surgery to relieve pressure on a nerve or to destroy a nerve that is causing pain. ??? Physical therapy to help improve movement and balance. ??? Devices to help you move around (assistive devices). Follow these instructions at home: Medicines ??? Take seuf-rha-fjdioel and prescription medicines only as told by [...] system. Living wi (more content not included)... 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 * Hyperkalemia (Ghanaian) * Kidney Disease: Medicines to Avoid (Ghanaian) * Neuropathic Pain (Ghanaian) [facility] [place] [address] Subjective Patient ID: Evans Forte is a [...] rescheduled his thoracic imaging and has his psychiatric evaluation in January scheduled. He continues to [...] of left foot Type 2 diabetes mellitus ([facility]) Charcot's joint of foot Hypertension, essential Acquired hypothyroidism Hyperlipidemia Vitamin D deficiency Libido, decreased Erectile dysfunction Hypogonadism male Diabetic neuropathic arthropathy ([facility]) Diabetic neuropathy with neurologic complication ([facility]) End stage renal disease ([facility]) Glaucoma Hypoglycemia due to type 2 diabetes mellitus ([facility]) Iron deficiency anemia 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, 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, trunk [facility]CF current use of insulin ([facility]) Microalbuminuria Mild left ventricular systolic dysfunction Morbid obesity ([facility]) Obstructive sleep apnea syndrome Osteomyelitis ([facility]) Polyneuropathy due to type 2 diabetes mellitus ([facility]) Ulcer of right foot with fat layer exposed ([facility]) Pure hypercholesterolemia 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, unspecified eye (CMS/HCC) PVD (peripheral vascular disease) Adrenal nodule Anxiety Insomnia Osteomyelitis of left foot (CMS/HCC) Diabetic retinopathy ([facility]) Past history of chewing tobacco use Mild nonproliferative diabetic retinopathy associated with type 2 diabetes mellitus (CMS/HCC) Diabetic foot ulcers (CMS/HCC) Chronic sinusitis COVID-19 Anemia Preop examination Cardiovascular stress test abnormal Current tobacco use Enlarged lymph node Lymphedema Venous stasis dermatitis Neuropathic pain Intervertebral disc disorders with radiculopathy, lumbar region Past Medical History: Diagnosis Date Adrenal nodule left adrenal adenoma Anemia Anxiety Charcot foot due to diabetes mellitus (CMS/HCC) Right, s/p reconstructive surgery Chronic sinusitis COVID-19 08/2023 Diabetic foot ulcers (CMS/HCC) right Diabetic polyneuropathy ([facility]) Diabetic retinopathy (CMS/HCC) ED (erectile dysfunction) ESRD (end stage renal disease) ([facility]) 11/23/2022 GERD (gastroesophageal reflux disease) Glaucoma History of tobacco use Hyperlipidemia Hypertension Hypogonadism in male Hypothyroidism Insomnia Neuropathy Obesity Osteomyelitis of ankle or foot, left, acute (CMS/HCC) Pancreatitis x2 Past history of chewing tobacco use Peripheral artery disease Proteinuria Sleep apnea Type 2 diabetes mellitus ([facility]/HCC) Vitamin D deficiency Past Surgical History: [...] AMPUTATION Left Left lesser (more content not included)...[facility] 12-21-[address] Jasmin Junior MD / MD Treasure Jimenes, PAOLA / Heavenly Bueno CNP / Yokasta Hughes APRN-WILIAN Patient Name: Evans Forte Date of : 1970 Encounter Date: 12/21/2024 Patient Care Team: Idania Ricketts DO as PCP - General Ignacio Clay MD as Consulting Physician (Transplant Surgery) Adams aTte CNP as Nurse Practitioner (Urology) Delano Bardales [...] RTO after CT scans to review with . Heavenly Bueno CNP Medical Oncology/Hematology [phone] SUBJECTIVE: HPI: Evans Forte 54 y.o. man, [...] pericervical, anterior cervical, late (more content not included)...[facility]04-01-2025 History of Present illness Narrative* Idania [...] bg. Flowsheet Row Documentation from 11/28/2024 in [facility] with Elsy Carter MA Hospital Information ED, Hospital or Intermediate Facility Discharge? ED Patient has been contacted within 2 days of being seen in the ED Yes Diagnosis -- [Edema right lower leg] Discharge Date 11/27/24 Discharged To: Home Setting Discharge [facility] Engagement Medications Discharge medications reviewed [...] periods of time Vancomycin Hives Haloperidol Anxiety Milam Oil GI intolerance Runny nose, watery eyes [...] List Items Addressed This Visit Acquired hypothyroidism ([facility]/HCC) Anxiety Dependence on renal dialysis ([facility]/HCC) End stage renal disease ([facility]/HCC) Essential hypertension ([facility]/HCC) Obstructive sleep apnea syndrome Peripheral vascular disease ([facility]/HCC) Pure hypercholesterolemia ([facility]/HCC) Type 2 diabetes mellitus with foot ulcer ([facility]/HCC) 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 ([facility]/HCC) - Primary During the appointment today all [...] Type 2 diabetes mellitus with peripheral neuropathy ([facility]/HCC) Discussed that opioids are not the correct [...] use of insulin (CMS/HCC) Long-term insulin use ([facility]) Class 3 severe obesity due to excess calories with serious comorbidity and body mass index (BMI) of40.0 to 44.9 in adult Hx of amputation of lesser toe, left (HCC) ([facility]) Chronic kidney disease with end stage renal disease on dialysis due to type 2 diabetes mellitus ([facility]) Follow up for Next scheduled follow-up. [...] 5,000 UNITS TABLET Daily. CONTINUOUS BLOOD GLUC MANAGER MASSAGE DEPARTMENT (DEXCOM G7 MANAGER MASSAGE DEPARTMENT) DEVICE 1 (one) time each day at [...] with the patient today. documented in this encounterSSM [id number] Telephone encounter Note* Telephone Encounter - Gretchen Plummer - 11/27/2024 3:43 PM EDT Lyrica refill sent to [facility]. S[facility] [id number] Miscellaneous Notes* Telephone Encounter - Gretchen Plummer - 11/27/2024 3:43 PM EDT Lyrica refill sent to [facility]. documented in this encounterSSM [id number] Note Attestation signed by Chong Cooley MD [...] the trial produced relief. [facility] [address] [address] Referral Source: self-referral, found spinal cord stimulator [...] Medical History: Diagnosis Date (more content not included)...[facility] 11-07-2024 NoteDate of Telehealth Visit: 11/07/2024 Follow up on right foot wound and LAP HPI The visit was conducted [id number] with the use of audio and video technology using HIPAA approved [employer] System between patient and the provider for [...] in 2 months Faustino Morel MD [facility] NotePatient was seen today in wound clinic. Documentation is provided in Lua wound care documenting system. See Intellicure note [...] RTC 2-3 weeks GDMT for PAD: tesfaye, statinUnSelect [facility] Progress note Author Kit Lundy [facility] Note Date/Time October 30, 2024 6:06am [facility] [address] [place] [address] Progress Note Signed Patient: Evans Forte MR#: [id number] : 1970 Acct:[id number] Age/Sex: 54 / M Adm Date: 5 Loc: 4N Room: 0F6704-9 Type: ADM IN Attending Dr: Maxime Magana [...] wants to leave AMA and go [facility] tomorrow. Documented By: Kit Lundy MD 10/30/24101 Signed By: <Electronically signed by Kit Lundy MD> 10/30/[address] [place] [address] Ctr Work Phone: 1(191) 252-938402-24-2025 [place] [address] Progress Note Signed Patient: Evans Forte MR#: [id number] : 1970 Acct:[id number] Age/Sex: 54 / M Adm Date: 5 Loc: Room: [address] [place] [address] Type: ADM IN Attending Dr: Maxime Magana [...] wants to leave AMA and go to [facility] tomorrow. Documented By: Kit Lundy MD 10/30/24101 Signed By: 10/30/24 0606 [facility]02-23-2025 History and physical note Author Maxime Magana [facility] Note Date/Time October 29, 2024 9:14pm [facility] [address] [place] [address] Hospitalist H&P Signed Patient: Evans Forte MR#: [id number] : 1970 Acct:[id number] Age/Sex: 54 / M Adm Date: 5 Loc: 4N Room: 1U0926-1 Type: ADM IN Attending Dr: Maxime Magana DO Copies to: Idania DO Maxime Ricketts, ~ HPI DATE OF EXAMINATION: 10/29/24 CHIEF COMPLAINT: right foot infection, right leg cellulitis. HISTORY OF PRESENT ILLNESS: This is a 54-year-old man who came to the emergency room with right foot infection. This is located in the heel. He went to the [facility] for a wound care center appointment and he says they opened it and they dug around really deep. He explains that he was made to go to the wound care center at the [facility] because the kidney transplant program there wants him to get everything done at the [facility]. So he has had only [...] foot by podiatry with Dr. Wilkes out [facility]. So there are a number of [...] on the transplant list at [facility] and the last thing that he needs [...] except as mentioned elsewhere in the documentation. [facility] Medical History (Updated 10/29/24 @ 21:11 by [...] (AV) fistula creation History of cardiac catheter[place] [facility] History of orthopedic surgery right foot has [...] tirzepatide 5 mg/0.5 mL subcutaneous pen injector (Shawnunpedro luis) 5 mg subcut QWEEK 10/06/23 [History Confirmed [...] % (Auto) 14.2 % (.) 10/29/24 18:14 [place] % (Auto) 6.8 % (.) 10/29/24 18:14 Eos % (Auto) 3.4 % (.) 10/29/24 18:14 Baso % (Auto) 1.1 % (.) 10/29/24 18:14 Nucleat RBC Rel Count 0.0 /100 WBC (0-0.5) 10/29/24 18:14 Neut # (Auto) 7.5 x10E3/uL (1.8-7.7) 10/29/24 18:14 Lymph # (Auto) 1.4 x10E3/uL (1.00-4.8) 10/29/24 18:14 [place] # (Auto) 0.7 x10E3/uL (0.0-0.8) 10/29/24 18:14 [...] <Electronically signed by Maxime Magana DO> 10/29/242113 [facility] Work Phone: 1(510) 383-924602-23-2025 Evaluation note* Diagnosis Onset Date Resolution Status Admit Date Benign hypertension with end-stage renal disease acute October 29, 2024 7:28pm Cellulitis acute October 29, 2024 7:28pm Cellulitis of leg, right acute October 29, 2024 7:28pm ESRD on hemodialysis acute Febr 2024 7:28pm Right foot infection acute 2024 7:28pm Type 2 diabetes mellitus wit h diabetic chronic kidney disease acute October 29, 025 7:28pm [facility] Work Phone: 1(442) 442-939702-23-2025 [place] [address] Hospitalist H&P Signed Patient: Evans Forte MR#: [id number] : 1970 Acct:[id number] Age/Sex: 54 / M Adm Date: 5 Loc: Room: 6Q4971-2 Type: ADM IN Attending Dr: Maxime Magana DO Copies to: DO Maxime Dhillon DO~ HPI DATE OF EXAMINATION: 10/29/24 CHIEF COMPLAINT: right foot infection, right leg cellulitis. HISTORY OF PRESENT ILLNESS: This is a 54-year-old man who came to the emergency room with right foot infection. This is locatedin the heel. He went to the [facility] for a wound care center appointment and he says they opened it and they dug around really deep. He explains that he was made to go to the wound carecenter at the [facility] because the kidney transplant program there wants him to get everything done at the [facility]. So he has had only [...] by podiatry with Dr. Wilkes out of [place]. So there are a number of plates [...] on the transplant list at [facility] and the last thing that he needs [...] except as mentioned elsewhere in the documentation. [facility] Medical History (Updated 10/29/24 @ 21:11 by [...] (AV) fistula creation History of cardiac catheterization [facility] History of orthopedic surgery right foot has [...] % (Auto) 14.2 % (.) 10/29/24 18:14 [place] % (Auto) 6.8 % (.) 10/29/24 18:14 Eos % (Auto) 3.4 % (.) 10/29/24 18:14 Baso % (Auto) 1.1 % (.) 10/29/24 18:14 Nucleat RBC Rel Count 0.0 /100 WBC (0-0.5) 10/29/24 18:14 Neut # (Auto) 7.5 x10E3/uL (1.8-7.7) 10/29/24 18:14 Lymph # (Auto) 1.4 x10E3/uL (1.00-4.8) 10/29/24 18:14 [place] # (Auto) 0.7 x10E3/uL (0.0-0.8) 10/29/24 18:14 [...] Maxime Magana DO 2099 Signed By: 10/29/242113 [facility]02-11-2025 NotePatient was seen today in wound clinic. Documentation is provided in Lua wound care documenting system. See IntellicYouTab note for full details. Right heel DFU [...] evidence of significant arterial occlusive disease bilaterally. [facility]02-11-2025 NoteSubjective Patient ID: Evans Forte is a 54 y.o. male who presents for pre transplant evaluation HPI A 54 year old male patient with ESRD on HD since Sep 2023, is in the process of renal transplant evaluation, has two ulcers on the right foot, one heal and one on the sole first metatarsal, he follows head swamper for this, during his evaluation CT abdomen [...] Past Medical History: Diagnosis Date Adrenal nodule ([facility]) left adrenal adenoma Anemia Anxiety Charcot foot due to diabetes mellitus ([facility]) Right, s/p reconstructive surgery Chronic sinusitis COVID-19 08/2023 Diabetic foot ulcers ([facility]) right Diabetic polyneuropathy ([facility]) Diabetic retinopathy ([facility]) ED (erectile dysfunction) ESRD (end stage renal disease) ([facility]) 11/23/2022 GERD (gastroesophageal reflux disease) Glaucoma History of tobacco use Hyperlipidemia Hypertension Hypogonadism in male Hypothyroidism Insomnia Neuropathy Obesity Osteomyelitis of ankle or foot, left, acute ([facility]) Pancreatitis x2 Past history of chewing tobacco use Peripheral artery disease ([facility]) Proteinuria Sleep apnea Type 2 diabetes mellitus ([facility]) Vitamin D deficiency Patient Active Problem List Diagnosis Adenoma of left adrenal gland History of pancreatitis Open wound of left foot Type 2 diabetes mellitus ([facility]) Charcot's joint of foot Hypertension, essential Acquired hypothyroidism Hyperlipidemia Vitamin D deficiency Libido, decreased Erectile dysfunction Hypogonadism male Diabetic neuropathic arthropathy ([facility]) Diabetic neuropathy ([facility]) End stage renal disease ([facility]) Glaucoma Hypoglycemia due to type 2 diabetes mellitus ([facility]) Iron deficiency anemia 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 90 tablet (more content not included)...[facility]01-29-2025 Telephone encounter Note* Telephone Encounter - Gretchen Plummer - 10/04/2024 9:10 AM EST Pt's spouse is requesting a Referral, office notes, medication list to Dr. Martel for pain management fax [phone] [facility] [id number] Miscellaneous Notes* Telephone Encounter - Gretchen Plummer - 10/04/2024 9:10 AM EST Pt's spouse is requesting a Referral, office notes, medication list to Dr. Martel for pain management fax [phone] documented in this encounterNOSoutheast Missouri [id number] History of Present illness Narrative* Gi Mondragon, TIARA - 10/03/2024 9:30 AM EST Images from [...] the patient to go to [facility] in [place] for their DM shoes and inserts. 4. Patient will be contacted for appointment information once pre-certification has been completed if required. documented in this encounterSSM [id number] History of Present illness Narrative* Idania Ricketts [...] periods of time Vancomycin Hives Haloperidol Anxiety Milam Oil GI intolerance Runny nose, watery eyes [...] 5,000 UNITS TABLET Daily. CONTINUOUS BLOOD GLUC MANAGER MASSAGE DEPARTMENT (DEXCOM G7 MANAGER MASSAGE DEPARTMENT) DEVICE 1 (one) time each day at [...] with the patient today. documented in this encounterSSM [id number] NoteDr. Catia Ventura vessels good both [facility]01-14-2025 History of Present illness Narrative* Idania Ricketts [...] testing came back normal. He saw the curtain supervisor after this and they referred him to [...] periods of time Vancomycin Hives Haloperidol Anxiety Milam Oil GI intolerance Runny nose, watery eyes [...] Addressed This Visit End stage renal disease (CMS/[facility]) Relevant Medications bumetanide (Bumex) 2 MG tablet [...] 5,000 UNITS TABLET Daily. CONTINUOUS BLOOD GLUC MANAGER MASSAGE DEPARTMENT (DEXCOM G7 MANAGER MASSAGE DEPARTMENT) DEVICE 1 (one) time each day at [...] with the patient today. documented in this encounterSSM [id number] History of Present illness Narrative* Gi Mondragon, TIARA - 09/19/2024 9:15 AM EST Images from [...] boot for offloading/pressure reduction. Patient does have [facility] for dressing changes. Encouraged him to [...] 5. RTC: 2-3 weeks. documented in this encounterSSM [id number] NoteTC returned message to patient regarding work up status. Patient states has completed lymph node biopsy and bone biopsy and both came back negative. Patient recommended to follow up with infectious disease regarding lymph nodes. Patient continues to work on nicotine cessation, dental and podiatry. Patient will update TC after appointment with infectious disease. Melinda Hidalgo, JACOBGreene [facility] Hospital01-07-2025 Telephone encounter Note* Telephone Encounter - Gretchen Plummer - 09/12/2024 10:51 AM EST Pt's spouse called stating pt has cellulitis. Lower part of right leg is red, hot to the touch, andswollen. She feels he needs an antibiotic called in. [facility] in [place]. [facility] [id number] Miscellaneous Notes* Telephone Encounter - Gretchen Elian - 09/12/2024 10:51 AM EST Pt's spouse called stating pt has cellulitis. Lower part of right leg is red, hot to the touch, andswollen. She feels he needs an antibiotic called in. [facility] in [place]. [facility] Note Attestation signed by Sivan Keller MD [...] Jasmin Junior MD / MD Treasure Jimenes, AOYOANAP / Heavenly Bueno CNP / Yokasta Hughes [...] 08/22/2024 MCH 30.9 1 (more content not included)...[facility] 09-05-2024 NoteSubjective Patient ID: Evans Forte [...] Summary Flow cytometry studies were completed at [employer]: Leukemia/lymphoma phenotyping evaluation by flow cytometry: - [...] the past 36 hour(s)). No follow-ups on file.[facility]12-30-2024 History of Present illness Narrative* Idania Ricketts DO - 09/04/2024 1:30 PM EST Images from the original note were not included. Evans Forte is a 54 y.o. male presents with chief complaint of ER Follow-up HPI: [facility] ER Follow up from 08/28/2024 [...] Ricketts DO Hospital Information ED, Hospital or Intermediate Facility Discharge? ED Patient has been contacted within 1 week of being seen in the ED Yes Diagnosis right leg edema Discharge Date 08/28/24 Discharged To: Home Setting Discharge Hospital [facility] Engagement Admission Date 08/28/24 Medications Discharge medications reviewed and reconciled from hospital? Yes Appointments Self Management Patient Teaching Wrap Up Wrap Up Additional Comments appt 09/04/2024 SUBJECTIVE: See medication list at the end of the note. Allergies Allergen Reactions Latex Rash Other Reaction(s): Unknown If on for long periods of time Vancomycin Hives Other Reaction(s): Unknown Other reaction(s): Unknown Haloperidol Anxiety Milam Oil GI intolerance Runny nose, watery eyes [...] 5,000 UNITS TABLET Daily. CONTINUOUS BLOOD GLUC MANAGER MASSAGE DEPARTMENT (DEXCOM G7 MANAGER MASSAGE DEPARTMENT) DEVICE 1 (one) time each day at [...] with the patient today. documented in this encounterSSM [id number] Telephone encounter Note* Telephone Encounter - Gretchen Camachoying - 09/01/2024 8:04 AM EST Copied from [facility] #[id number]. Topic: Clinical Support >> Aug 31, 2024 12:54 PM Jennifer C wrote: called in stating that he was seen [place] [facility] [place] for [place], but they refused to treat his leg, they gave him an ibuprofen and sent him home, but the thinks his right leg may be infected. Shewas advised to go to Urgent Care or ER but she will not go back to [facility]. She wanted to let Dr Emerson know what is going on and to advise what to do. [facility] [id number] Miscellaneous Notes* Telephone Encounter - Gretchen Plummer - 09/01/2024 8:04 AM EST Copied from [facility] #[id number]. Topic: Clinical Support >> Aug 31, 2024 12:54 PM Jennifer Bone wrote: called in stating that he was seen at [facility] [place] for his leg, but they refused to treat his leg, they gave him an ibuprofen and sent him home, but the thinks his right leg may be infected. Shewas advised to go to Urgent Care or ER but she will not go back to [facility]. She wanted to let Dr Emerson know what is going on and to advise what to do. documented in this encounterSSM [id number] NotePatient: Evans Forte Procedure Summary Date: 08/22/24 Room / Location: [facility] OPERATING ROOM 05 / [facility] Operating Room Anesthesia Start: 1554 Anesthesia [...] PACU per anesthesia protocol. No notable events documented.[facility]12-17-2024 Note Patient: Evans Forte Procedure Information Date/Time: 08/22/24 1545 Procedure: EXCISIONAL RIGHT GROIN LYMPH NODE BIOPSY (Right: Groin) - PATIENT HAS APPT IN THE HOSP AT 11, [facility] MAKE SURE TO GETN CONSENT PRIOR PER CT Location: [facility] OPERATING ROOM 05 / [facility] Operating Room Surgeons: Erick Carter MD [...] breakfast. Yes Historical Prov (more content not included)...[facility]12-17-2024 NotePlease let path know to add NGS for mds and myeloid with hypercellular marrow Thanks Sivan Keller MDUnSelect Medical Specialty [facility]12-17-2024 NoteSedation Preparation Pre Procedure Evaluation Pre Procedure Evaluation: H&P was reviewed and the patient was examined. No change has occurred in the patient's condition since the H&P has been completed. ASA Score ASA: 3 Mallampati Mallampati: III Informed Consent Sedation Plan and Risks Explained: PatientUnSelect Medical Special[facility] 08-22-2024 NoteProcedure: CT-guided bone marrow biopsy and bone marrow aspiration Staff: Esme Resident: Marquise Contrast: None Complications: None Medications: Versed 2 mg iv. Fentanyl 100 mcg iv. Moderate sedation was monitored by the interventional radiology nursing staff. Total sedation time of 20 minutes Indication: Concern for lymphoma, staging Procedure: Using CT guidance, the [employer] system was used to perform bone marrow [...] marrow aspirate and biopsy. Electronically signed: Jey JohnsonVan Wert County Hospital12-03-2024 NoteSubjective Patient ID: Evans Forte is [...] skull base to mid thigh FDG Order: [id number] Status: Final result Visible to patient: Yes (seen) Dx: Enlarged lymph nodes; Pre-transplant ... 0 Result Notes Details Reading Physician Reading Date Result Priority Alonso Jaffe MD [phone] 07/31/2024 Routine Narrative & Impression History: Pretransplant [...] CT abdomen pelvis wo renal recipient Order: [id number] Status: Edited Result - FINAL Visible to patient: Yes (seen) Dx: Pre-transplant evaluation for kidney ... 0 Result Notes Details Reading Physician Reading Date Result Priority Alonso Sampson MD [phone] 07/12/2024 Routine Addenda Addendum: Note that there [...] iliac arteries. No suspiciou (more content not included)...[facility] 08-08-2024 Note Attestation signed by Sivan [...] Jasmin Junior MD / MD Treasure Jimenes, AOP / Heavenly Bueno CNP / Yokasta Hughes APRN-WILIAN Patient Name: Evans Forte Date of : 1970 Encounter Date: 08/08/2024 Patient Care Team: Idania Ricketts DO as PCP - General Ignacio lCay MD as Consulting Physician (Transplant Surgery) Adams [...] Results Component Value Date (more content not included)...[facility]12-02-2024 History of Present illness Narrative* Idania [...] 6.3 at his last office visit on 06/21/204 Last eye exam: 01/07/2024 Hx diabetes medications not tolerated: Current concerns include: States his bg levels are higher d/t stress Dexcom is not linked. Average is around 180 Seems to be running higher at night Jarrod does not seem to be doing anything [...] Patient Active Problem List Diagnosis Acquired hypothyroidism ([facility]) Anxiety Dependence on renal dialysis ([facility]) End stage renal disease ([facility]) Essential hypertension ([facility]) Non-pressure chronic ulcer of other part of right foot with unspecified severity ([facility]) Obstructive sleep apnea syndrome Peripheral vascular disease ([facility]) Insomnia Pure hypercholesterolemia ([facility]) Type 2 diabetes mellitus with foot ulcer ([facility]) 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 ([facility]) Vitamin D deficiency Type 2 diabetes mellitus with ESRD (end-stage renal disease) ([facility]) Type 2 diabetes mellitus with peripheral neuropathy ([facility]) 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, with long-term current use of insulin ([facility]) Long-term insulin use ([facility]) Class 3 severe obesity due to excess calories with serious comorbidity and body mass index (BMI) of40.0 to 44.9 in adult ([facility]) Hx of amputation of lesser toe, left ([facility]) ([facility]) Adenoma of left adrenal gland Chronic kidney disease with end stage renal disease on dialysis due to type 2 diabetes mellitus ([facility]) Erectile dysfunction Hypoglycemia due to type 2 diabetes mellitus ([facility]) Hypogonadism male Iron deficiency anemia Past [...] Reaction(s): Unknown Other reaction(s): Unknown Haloperidol Anxiety Milam Oil GI intolerance Runny nose, watery eyes [...] diabetes mellitus with ESRD (end-stage renal disease) ([facility]) Type 2 diabetes mellitus with peripheral neuropathy ([facility]) 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, with long-term current use of insulin ([facility]) Long-term insulin use ([facility]) Class 3 severe obesity due to excess calories with serious comorbidity and body mass index (BMI) of40.0 to 44.9 in adult ([facility]) Hx of amputation of lesser toe, left ([facility]) ([facility]) Chronic kidney disease with end stage renal disease on dialysis due to type 2 diabetes mellitus ([facility]) Other Visit Diagnoses Inguinal adenopathy Will [...] 5,000 UNITS TABLET Daily. CONTINUOUS BLOOD GLUC MANAGER MASSAGE DEPARTMENT (DEXCOM G7 MANAGER MASSAGE DEPARTMENT) DEVICE 1 (one) time each day at [...] with the patient today. documented in this encounterSSM [id number] NoteLeft message to call office back and schedule with Dr Nguyen for enlarged lymph nodes [facility] NotePatient: Evans Forte Procedure Information Date/Time: 07/27/24 0830 Procedures: Coronary angiography Right heart cath Location: [facility] / [facility] (Cath) Providers: Pedro [...] who consented to blood products. 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 , no house plants, no known TB exposure, Past Medical History: Past Medical History: Diagnosis Date Adrenal nodule ([facility]) left adrenal adenoma Anemia Anxiety Charcot foot due to diabetes mellitus ([facility]) Right, s/p reconstructive surgery Chronic sinusitis COVID-19 08/2023 Diabetic foot ulcers ([facility]) right Diabetic polyneuropathy ([facility]) Diabetic retinopathy ([facility]) ED (erectile dysfunction) ESRD (end stage renal disease) ([facility]) 11/23/2022 GERD (gastroesophageal reflux disease) Glaucoma History of tobacco use Hyperlipidemia Hypertension Hypogonadism in male Hypothyroidism Insomnia Neuropathy Obesity Osteomyelitis of ankle or foot, left, acute ([facility]) Pancreatitis x2 Past history of chewing tobacco use Peripheral artery disease ([facility]) Proteinuria Sleep apnea Type 2 diabetes mellitus ([facility]) Vitamin D deficiency Patient Active Problem List Diagnosis Adenoma of left adrenal gland History of pancreatitis Open wound of left foot Type 2 diabetes mellitus ([facility]) Charcot's joint of foot Hypertension, essential Acquired hypothyroidism Hyperlipidemia Vitamin D deficiency Libido, decreased Erectile dysfunction Hypogonadism male Diabetic neuropathic arthropathy ([facility]) Diabetic neuropathy ([facility]) End stage renal disease ([facility]) Glaucoma Hypoglycemia due to type 2 diabetes mellitus ([facility]) Iron deficiency anemia 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, 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, trunk [facility] current use of insulin ([facility]) Microalbuminuria Mild left ventricular systolic dysfunction Morbid obesity ([facility]) Obstructive sleep apnea syndrome Osteomyelitis ([facility]) Polyneuropathy due to type 2 diabetes [...] drink of jessee (more content not included)... [facility]11-[facility]-2024 NotePatient returned call to TC. Discussed with patient need for additional testing recommended from CT abdomen and pelvis performed 07/11/24. Informed patient evaluating surgeon would like patient to obtain PET CT. Patient states okay to place order at [facility]. Order placed and mailed to patient. Melinda Hidalgo RNUnSelect [facility] Special[facility]11-05-2024 NoteI saw the patient in clinic. They [...] and patient financial responsibility forms they signed. [facility]11-05-2024 [id number] Evans Forte 1970 M Date Provider Department [...] Grandmother Daughter Father's Brother Alive Level of Service:95944 MO OFFICE/OUTPATIENT ESTABLISHED HIGH MDM 40 MIN Reason for Visit and Comments: Kidney Eval [[id number]][facility]11-05-2024 Note Coordinator met with patient for re-evaluation appointment today in the Transplant clinic. Patient watched the transplant education video. Reviewed transplant process and consents with patient. Answered patient questions. Social work, finance and head soft sugar operator in to see patient for review. Dr. Russell in for H&P and review of transplant plan. Dr. Moreland in for surgical evaluation. Coordinator provided copy of plan to patient and reviewed it with them. Patient aware further testing needed and to keep transplant team updated. Understanding verbalized by patient. Sent patient for labs, EKG & CXR today. Catalyst Unit Operator provided patient TE folder with education on various transplant consents, the workup process, surgery details, postop expectations, transplant statistics, and living donor information. Answered patient questions and verified understanding. Melinda Hidalgo RNUnSelect Medical Specialty [facility] [place]11-05-2024 NotePre- Transplant Evaluation Nephrology Consult Chief Complaint Patient presents with Kidney Eval PCP: Idania Ricketts DO Txp Referring: Ada Uriostegui Preferred Pharmacy: [id number] [address] [facility] [address] [facility] [id number] Organ: Kidney Subjective Visit Vitals BP 134/69 [...] Other reaction(s): Unknown Adhesive Rash Haloperidol Anxiety Milam Oil GI intolerance Runny nose, watery eyes Medication Documentation Review Audit Reviewed by Sita Danielson MA (Black Oxide Operator) on 07/11/24 at 0808 Medication Order Taking? Sig Documenting Provider Last Dose Status anastrozole (Arimidex) 1 mg chemo tablet [id number] Yes Take 1 tablet (1 mg total) by mouth in the morning Swallow whole with a drink of water. Adams Tate NP Taking Active aspirin 81 mg chewable tablet [id number] Yes Chew 1 tablet (81 mg) in the morning. Pedro Alvarez MD Taking Active atorvastatin (Lipitor) 20 mg tablet [id number] Yes Take 1 tablet every day by oral route. Historical ProviderMD Taking Active b complex 0.4 mg tablet [id number] Yes Take 1 tablet by mouth in the morning and at bedtime. Historical ProviderMD Taking Active calcitriol (Rocaltrol) 0.25 mcg capsule [id number] Yes Take 0.25 mcg by mouth in the morning. Historical ProviderMD Taking Active calcium acetate (Phoslo) 667 mg capsule [id number] Yes take 2 capsules by mouth with meals three times a day then take 1... (REFER TO PRESCRIPTION NOTES). Historical ProviderMD Taking Active carvedilol (Coreg) 12.5 mg tablet [id number] Yes Take 12.5 mg by mouth with breakfast and with evening meal. Historical Provider, Taking Active cholecalciferol (D3-5) 5,000 Units tablet [id number] Yes Take 1 tablet every day by oral route. Historical Provider, Taking Active furosemide (Lasix) 80 mg tablet [id number] Yes Take 80 mg by mouth two times daily. Historical Provider, Taking Active insulin glargine (Lantus) 100 unit/mL injection vial [id number] Yes Inject 60 Units under the skin in the morning. Historical Provider, Taking Active insulin lispro (HUMALOG KWIKPEN INSULIN SUBQ) [id number] Yes Inject 10 Units under the skin with breakfast, with lunch, and with evening meal. Historical Provider, Taking Active levothyroxine (Synthroid, Levoxyl) 100 mcg tablet [id number] Yes Take 1 tablet every day by oral route. Historical Provider, Taking Active polyethylene glycol (GoLYTELY) 236-22.74-6.74 -5.86 gram solution [id number] For day 2 of 2 day prep Haleigh Goodrich NP Active polyethylene glycol (GoLYTELY) 236-22.74-6.74 -5.86 gram solution [id number] No For day 1 of 2 day prep Patient not taking: Reported on 07/11/2024 Hlaeigh Goodrich NP Not Taking Flag for Review tadalafil (Cialis) 20 mg tablet [id number] Take 1 tablet (20 mg) by mouth if needed each day for erectile dysfunction. Adams Tate NP 04/27/23 7823 testosterone 1.62 % (20.25 mg/1.25 gram) gel in packet [id number] Yes APPLY 1 PACKET DIRECTED ONCE DAILY [...] anemia 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, 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, trunk [facility] current use of insulin (CMS/HCC) Microalbuminuria Mild [...] eye (CMS/HCC) Peripheral vascu (more content not included)...[facility]11-[facility]-20[facility] NoteIdentifying Information Name: Evans Forte : 1970 Assessment date: 07/11/2024 Transplant type: Kidney Transplant Evaluation - 10/12/2019 Primary language: Ghanaian Orthodox/spirituality: Uatsdin People present at assessment: sister Caryn Carroll Do you have any methodist, ethical or personal objections to accepting blood products, surgery and/or transplant? No Citizenship Where were you born? In the [place] in [facility] Where do you currently live or are staying? [facility] Is this greater than 3-4 hours from [facility]? No. 1 Hour Family Background and [...] primary caregiver? spouse/significant other Tressa Contact #: [phone] Health status & availability: Healthy, works [employer], able to take time off work, might need FMLA paperwork completed, able to drive. Who will be your secondary caregiver(s)? sibling Contact #: Caryn [phone] Health status & availability: Healthy, doesn't work, [...] type of work do you/did you do? [employer]. Date of last employment: April 2022 What [...] Subscriber Name Rel Member # Group # [facility]* EVANS FORTE Self [id number] [address] [address] [facility]* EVANS FORTE Self [id number] [address] [address] Are you aware of a coordination of benefits with your insurance and Medicare (if applicable)? no- mailing Medicare and ESRD info to patient. Are you receiving assistance through [employer] JANICE Program: No Medication Coverage [...] 03/06/2023 Peritoneal [facility] Dialysis Center Information [facility] Address: [address] [place] [address], [address] [facility] [address] [place]. Dialysis Schedule: MWF, 5:30AM, 4H15M, a few [...] HD diet, p (more content not included)... [facility]11-05-2024 NotePre-Transplant Kidney Evaluation Surgery Consultation PCP: Idania Ricketts DO Txp Referring: Ada Uriostegui Preferred Pharmacy: [facility] #[id number] [facility] [address] [place] [id number] Organ: Kidney Subjective Visit Vitals BP 134/69 [...] Other reaction(s): Unknown Adhesive Rash Haloperidol Anxiety Milam Oil GI intolerance Runny nose, watery eyes Medication Documentation Review Audit Reviewed by Sita Danielson MA (Black Oxide Operator) on 07/11/24 at 0808 Medication Order Taking? Sig Documenting Provider Last Dose Status anastrozole (Arimidex) 1 mg chemo tablet [id number] Yes Take 1 tablet (1 mg total) by mouth in the morning Swallow whole with a drink of water. Adams Tate NP Taking Active aspirin 81 mg chewable tablet [id number] Yes Chew 1 tablet (81 mg) in the morning. Pedro Alvarez MD Taking Active atorvastatin (Lipitor) 20 mg tablet [id number] Yes Take 1 tablet every day by oral route. Zia Harden MD Taking Active b complex 0.4 mg tablet [id number] Yes Take 1 tablet by mouth in the morning and at bedtime. Zia Harden MD Taking Active calcitriol (Rocaltrol) 0.25 mcg capsule [id number] Yes Take 0.25 mcg by mouth in the morning. Zia Harden MD Taking Active calcium acetate (Phoslo) 667 mg capsule [id number] Yes take 2 capsules by mouth with meals three times a day then take 1... (REFER TO PRESCRIPTION NOTES). Zia Harden MD Taking Active carvedilol (Coreg) 12.5 mg tablet [id number] Yes Take 12.5 mg by mouth with breakfast and with evening meal. Zia Harden MD Taking Active cholecalciferol (D3-5) 5,000 Units tablet [id number] Yes Take 1 tablet every day by oral route. Zia Harden MD Taking Active furosemide (Lasix) 80 mg tablet [id number] Yes Take 80 mg by mouth two times daily. Zia Harden MD Taking Active insulin glargine (Lantus) 100 unit/mL injection vial [id number] Yes Inject 60 Units under the skin in the morning. Zia Harden MD Taking Active insulin lispro (HUMALOG KWIKPEN INSULIN SUBQ) [id number] Yes Inject 10 Units under the skin with breakfast, with lunch, and with evening meal. Zia Harden MD Taking Active levothyroxine (Synthroid, Levoxyl) 100 mcg tablet [id number] Yes Take 1 tablet every day by oral route. Zia Harden MD Taking Active polyethylene glycol (GoLYTELY) 236-22.74-6.74 -5.86 gram solution [id number] For day 2 of 2 day prep Haleigh Goodrich, APPRENTICE COOK Active polyethylene glycol (GoLYTELY) 236-22.74-6.74 -5.86 gram solution [id number] No For day 1 of 2 day prep Patient not taking: Reported on 07/11/2024 Haleighjase Goodrich APPRENTICE COOK Not Taking Flag for Review tadalafil (Cialis) 20 mg tablet [id number] Take 1 tablet (20 mg) by mouth if needed each day for erectile dysfunction. Adams Tate NP 04/27/23 2755 testosterone 1.62 % (20.25 mg/1.25 gram) gel in packet [id number] Yes APPLY 1 PACKET DIRECTED ONCE DAILY [...] of left foot Type 2 diabetes mellitus ([facility]) Charcot's joint of foot Essential hypertension Acquired hypothyroidism Hyperlipidemia Vitamin D deficiency Libido, decreased Erectile dysfunction Hypogonadism male Diabetic neuropathic arthropathy ([facility]) Diabetic neuropathy ([facility]) End stage renal disease ([facility]) Glaucoma Hypoglycemia due to type 2 diabetes mellitus ([facility]) Iron deficiency anemia 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, 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, 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 of 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 ([facility]) Microalbuminuria Mild left ventricular systolic dysfunction Morbid obesity ([facility]) Obstructive sleep apnea syndrome Osteomyelitis ([facility]) Polyneuropathy due to type 2 diabetes mellitus ([facility]) Ulcer of right foot with fat layer exposed ([facility]) Pure hypercholesterolemia Disorder of adrenal gland (CMS/HCC) Type 2 diabetes mellitus with 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 edema, unspecified eye (CMS/HCC) Peripheral vas (more content not included)...[facility] 07-11-2024 NoteTransplant Nutrition Assessment Name: Evans [...] years, intentional with diet changes. Food Allergy: Milam seeds Current diet: Renal diet. No supplements . High protein and vegetables. Nutrition/Diet: Most meals eaten at home. Diabetes Management: 60 units lantus and humalog 10units TID. Checks blood sugars often (has a dexcom). A1C 6.3% Diet Recall Breakfast: Skips on dialysis days or has eggs. Lunch: Tyler or a salad. Dinner: Variety of meats, [...] diet changes to expect post transplant. [place], [facility]10-24-2024 History of Present illness Narrative* Gi H Giancarlo, DPM - 06/29/2024 9:30 AM EDT Images [...] 5. RTC: 2-3 weeks. documented in this encounterSSM [id number] NoteUT Cardiology - [facility] Subjective Evans [...] anemia 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, 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, trunk [facility] current use of insulin (CMS/HCC) Microalbuminuria Mild [...] cooperative. Judgment: Judgment normal. (more content not included)...[facility]10-15-2024 NotePatient: Evans Forte Procedure Summary Date: 06/20/24 Room / Location: [facility] Anesthesia Start: 1056 Anesthesia Stop: 1201 Procedure: [...] PACU per anesthesia protocol. No notable events documented.[facility]10-15-2024 Note Patient: Evans Forte Procedure Information Date/Time: 06/20/24 1200 Scheduled providers: Anya Henley MD; Vinay Avila MD Procedure: SURVEILLANCE COLONOSCOPY Location: [facility] Relevant Problems Anesthesia (+) Obstructive sleep apnea syndrome Cardio (+) Essential hypertension Endo (+) Acquired hypothyroidism (+) Type 2 diabetes mellitus (CMS/HCC) /Renal (+) End stage renal disease (CMS/HCC) Other (+) Charcot's joint of foot (+) Osteomyelitis ([facility]) (+) Osteomyelitis of left foot ([facility]) Clinical information reviewed: Tobacco Allergies Meds [...] discussed with resident. Additional Equipment RequestsUnSelect [facility] [place]10-08-2024 Note Medication resent to patients preferred pharmacy as requested.[facility]10-03-2024 History of Present illness Narrative* Gi [...] boot for offloading/pressure reduction. Patient does have [facility] for dressing changes. Encouraged him to [...] 5. RTC: 2-3 weeks. [facility] Telephone encounter Note* Telephone Encounter - Gi Mondragon DPM - 05/31/2024 2:20 PM EDT Refill request was approved. Prescription was sent to his preferred pharmacy. [facility] [id number] Miscellaneous Notes* Telephone Encounter - Gi Mondragon DPM - 05/31/2024 2:20 PM EDT Refill request was approved. Prescription was sent to his preferred pharmacy. * Telephone Encounter - Sophia Martini MA - 05/30/2024 2:02 PM EDT Patient called and stated that he would like a refill of Pregabalin. Please advise, thank you. [facility] Telephone encounter Note* Telephone Encounter - Sophia Martini MA - 05/30/2024 2:02 PM EDT Patient called and stated that he would like a refill of Pregabalin. Please advise, thank you. [facility] [id number] History of Present illness Narrative* Gi Mondragon [...] 5. RTC: 2 weeks. documented in this encounterSSM [id number] History of Present illness Narrative* Idania Ricketts [...] gabapentin. Pt here for anxiety [place] [facility] [place] d/t panic attack. Was prescribed Ativan Filled Ativan last night and took one dose last night. Pt states Ativan did help. [facility] will becontacting him to scheduled appt [...] Reaction(s): Unknown Other reaction(s): Unknown Haloperidol Anxiety Milam Oil GI intolerance Runny nose, watery eyes [...] 5,000 UNITS TABLET Daily. CONTINUOUS BLOOD GLUC MANAGER MASSAGE DEPARTMENT (DEXCOM G7 MANAGER MASSAGE DEPARTMENT) DEVICE 1 (one) time each day at the same time. CONTINUOUS BLOOD GLUC SENSOR (DEXCOM G7 SENSOR) [facility] as directed every 10 days for 90 [...] with the patient today. documented in this encounterSSM [id number] History of Present illness Narrative* Gi Mondragon [...] boot for offloading/pressure reduction. Patient does have [facility] for dressing changes. Encouraged him to [...] 5. RTC: 2 weeks. documented in this encounterSSM [id number] Telephone encounter Note* Telephone Encounter - Melinda Dailey LPN - 04/27/2024 2:01 PM EDT Pt was on mounjaro 7.5 and it was unavailable and was switched to ozepmic 2mg. Pt states he is not losing weight and would like to go back to mounjaro. Okay to send in? [facility] [id number] Miscellaneous Notes* Telephone Encounter - Melinda Dailey [...] asking for Mounjaro 7.5mg documented in this encounterSSM [id number] Telephone encounter Note* Telephone Encounter - Anayeli Mack LPN - 04/26/2024 4:00 PM EDT LVM that insurance will no long pay for novolog and asking for alternative. Also asking for Mounjaro 7.5mg [facility] [id number] Progress note Author Gi Mondragon [facility] November 23, 2023 3:53pm Note Date/Time November 23, 2023 3:[address] [facility] [address] [place] [address] Podiatry Progress Note Signed Patient: Evans Forte MR#: [id number] : 1970 Acct:[id number] Age/Sex: 53 / M Adm Date: 4 Loc: Room: [address] [place] [address] Type: ADM IN Attending Dr: Amy Escudero DO Copies to: ~ Subjective Subjective Date of Service: Date of Service: 11/23/2023 Time of Service: 15:51 Narrative: Mr. Forte is a 53 year old male who was admitted due to symptoms of sepsis. Patient has a large ulceration on the bottom of the right great toe and heel. He has been following with a head swamper and family. Patient states that the ulcerations [...] large hyperkeratosis. Patient will follow-up with his head swamper and family for further wound care. Discussed [...] By: <Electronically signed by TIARA Mondragon> 11/23/23 5522 [facility] Work Phone: 1(209) 322-994603-19-2024 Consult note Author Gi Mondragon [facility] November 23, 2023 3:51pm Note Date/Time November 22, 2023 5:[address] [facility] [address] [place] [address] Podiatry Consult Note Signed Patient: Evans Forte MR#: [id number] : 1970 Acct:[id number] Age/Sex: 53 / M Adm Date: 4 Loc: Room: [address] [place] [address] Type: ADM IN Attending Dr: Amy Escudero [...] heel. He has been following with a head swamper and family. Patient states that the ulcerations [...] negative unless noted below or in HPI [facility] Medical History (Updated 11/23/23 @ 10:16 by [...] 2 Surgical History History of cardiac catheter[place] [facility] History of orthopedic surgery right foot has [...] <Electronically signed by TIARA Mondragon> 11/23/23 1551 [facility] Work Phone: 1(951) 795-278903-19-2024 Progress note Author Amy Escudero [facility] November 24, 2023 1:40pm Note Date/Time November 23, 2023 1:[address] [facility] [address] [place] [address] Hospitalist Progress Note Signed Patient: Evans Forte MR#: [id number] : 1970 Acct:[id number] Age/Sex: 53 / M Adm Date: 4 Loc: Room: [address] [place] [address] Type: DIS IN Attending Dr: Amy Escudero [...] Mcg Capsule PO 11/22/24 08:59 [email or web address] [facility] Calcium Acetate 2,668 mg 11/21/23 07:30 11/23/23 [...] PO 11/21/24 15:59 Not Given BID@0800,1600 [facility] Heparin Sodium (Porcine) 5,000 unit 11/21/23 09:00 [...] SUBCUT 11/20/24 16:29 Not Given ACHS [facility] Protocol Insulin Human Regular 50 unit 11/21/23 [...] VINCE Tirzepatide [ 5 mg 11/30/23 09:00 Mocyndi] 5 Mg/0.5 SUBCUT 11/29/24 08:59 Ml Pen Injector Tu@0900 [facility] Ondansetron HCl 4 mg 11/20/23 21:03 Ondansetron [...] Allen> 11/23/23 1540 <Electronically signed by Amy Ecsudero DO> 11/24/23 1348 [facility] Work Phone: [phone] Progress note Author Ada Uriostegui [facility] November 23, 2023 12:09pm Note Date/Time November 23, 2023 10: 34am [facility] [address] [place] [address] Nephrology Progress Note Signed Patient: Evans Forte MR#: [id number] : 1970 Acct:[id number] Age/Sex: 53 / M Adm Date: 4 Loc: Room: 1T2259-6 Type: ADM IN Attending Dr: Amy Escudero DO Copies to: ~ Date of Service: 11/23/2023 Subjective Subjective Narrative: This is a 53-year-old male patient with a past medical history of hypertension, hyperlipidemia, end-stage renal disease on TTS hemodialysis schedule at [facility], insulin-dependent diabetes mellitus, obstructive sleep [...] Skin: No rashes , warm to touch E D TECH: Awake,Alert, following simple command Musculoskeletal: No joint [...] Mg Tablet) 1 mg PO QAM [facility] Stop: 11/20/24 08:59 Last Admin: 11/22/23 08:14 Dose: 1 mg Atorvastatin Calcium (Atorvastatin 20 Mg Tablet) 20 mg PO QAM [facility] Stop: 11/20/24 08:59 Last Admin: 11/22/23 08:13 Dose: 20 mg Calcitriol (Calcitriol 0.25 Mcg Capsule) 0.25 mcg PO TuThSa@0900 [facility] Stop: 11/22/24 08:59 Calcium Acetate (Calcium Acetate 667 Mg Capsule) 2,668 mg PO AC [facility] Stop: 11/20/24 07:29 Last Admin: 11/23/23 08:52 Dose: Not Given Carvedilol (Carvedilol 6.25 Mg Tablet) 6.25 mg PO BID [facility] Stop: 11/21/24 13:29 Last Admin: 11/23/23 08:53 Dose: Not Given Cyanocobalamin (Cyanocobalamin 1,000 Mcg Tablet) 1,000 mcg PO DAILY [facility] Stop: 11/20/24 08:59 Last Admin: 11/22/23 08:13 Dose: 1,000 mcg Darbepoetin Zechariah (Darbepoetin Zechariah In Polysorbat 25 Mcg/Ml Vial) 25 mcg IV-PUSHTu@0930 [facility]; Protocol Stop: 11/22/24 09:29 Furosemide (Furosemide 80 Mg Tablet) 80 mg PO BID@0800,1600 [facility] Stop: 11/21/24 15:59 Last Admin: 11/23/23 08:52 Dose: Not Given Heparin Sodium (Porcine) (Heparin 5,000 Unit/Ml Vial) 5,000 unit SUBCUT Q12HR [facility] Stop: 11/20/24 08:59 Last Admin: 11/23/23 08:53 [...] mls @ 300 mls/hr IV Q12H [facility] Last Admin: 11/22/23 21:02 Dose: 300 mls/hr Ceftriaxone Sodium (Rocephin) 2 gm in 50 mls @ 100 mls/hr IV Q24H [facility] Last Admin: 11/22/23 19:25 Dose: 100 mls/hr Sodium Chloride (0.9% Sodium Chloride 1,000 Ml) 1,000 mls @ 0 mls/hr MISCELLANE.Q0M PRN PRN Reason: Dialysis Stop: 11/22/24 09:19 Last Infusion: 11/23/23 09:43 Dose: Infused Insulin Aspart (Insulin Aspart 300 Units/3 Ml Insuln.Pen) 0 units SUBCUT ACHS [facility]; Protocol Stop: 11/20/24 16:29 Last Admin: 11/23/23 08:52 Dose: Not Given Insulin Human Regular (Insulin Regular U-500, Human 1,500 Unit/3 Ml Insuln.Pen) 50 unit SUBCUT BID [facility] Stop: 11/20/24 08:59 Last Admin: 11/23/23 08:53 Dose: Not Given Levothyroxine Sodium (Levothyroxine 100 Mcg Tablet) 100 mcg PO DAILY.0630 [facility] Stop: 11/20/24 06:29 Last Admin: 11/23/23 05:38 [...] In Packet 1 packet TRANSDERML DAILY [facility] Stop: 11/20/24 08:59 Last Admin: 11/23/23 08:53 Dose: Not Given Tirzepatide [ Mounjaro] 5 Mg/0.5 Ml Pen Injector 5 mg SUBCUT Tu@0900 [facility] Stop: 11/29/24 08:59 Ondansetron HCl (Ondansetron 4 [...] diabetic nephropathy. Patient has been going to [facility] on [facility] for hemodialysis. Last hemodialysis session was yesterday [...] <Electronically signed by Ada Uriostegui MD> 11/23/23 1203 [facility] Work Phone: [phone] Progress note Author Tyesha Hernández [facility] November 23, 2023 10:54am Note Date/Time November 23, 2023 10: 54am [facility] [address] [place] [address] Infect. Disease Progress Note Signed Patient: Evans Forte MR#: [id number] : 1970 Acct:[id number] Age/Sex: 53 / M Adm Date: 4 Loc: 3T Room: [address] [place] [address] Type: ADM IN Attending Dr: Amy Escudero [...] Mg Tablet) 1 mg PO QAM [facility] Stop: 11/20/24 08:59 Last Admin: 11/22/23 08:14 Dose: 1 mg Atorvastatin Calcium (Atorvastatin 20 Mg Tablet) 20 mg PO QAM [facility] Stop: 11/20/24 08:59 Last Admin: 11/22/23 08:13 Dose: 20 mg Calcitriol (Calcitriol 0.25 Mcg Capsule) 0.25 mcg PO TuThSa@0900 [facility] Stop: 11/22/24 08:59 Calcium Acetate (Calcium Acetate 667 Mg Capsule) 2,668 mg PO AC [facility] Stop: 11/20/24 07:29 Last Admin: 11/23/23 08:52 Dose: Not Given Carvedilol (Carvedilol 6.25 Mg Tablet) 6.25 mg PO BID [facility] Stop: 11/21/24 13:29 Last Admin: 11/23/23 08:53 Dose: Not Given Cyanocobalamin (Cyanocobalamin 1,000 Mcg Tablet) 1,000 mcg PO DAILY [facility] Stop: 11/20/24 08:59 Last Admin: 11/22/23 08:13 Dose: 1,000 mcg Darbepoetin Zechariah (Darbepoetin Zechariah In Polysorbat 25 Mcg/Ml Vial) 25 mcg IV-PUSHTu@0930 [facility]; Protocol Stop: 11/22/24 09:29 Furosemide (Furosemide 80 Mg Tablet) 80 mg PO BID@0800,1600 [facility] Stop: 11/21/24 15:59 Last Admin: 11/23/23 08:52 Dose: Not Given Heparin Sodium (Porcine) (Heparin 5,000 Unit/Ml Vial) 5,000 unit SUBCUT Q12HR [facility] Stop: 11/20/24 08:59 Last Admin: 11/23/23 08:53 [...] mls @ 300 mls/hr IV Q12H [facility] Last Admin: 11/22/23 21:02 Dose: 300 mls/hr Ceftriaxone Sodium (Rocephin) 2 gm in 50 mls @ 100 mls/hr IV Q24H [facility] Last Admin: 11/22/23 19:25 Dose: 100 mls/hr Sodium Chloride (0.9% Sodium Chloride 1,000 Ml) 1,000 mls @ 0 mls/hr MISCELLANE.Q0M PRN PRN Reason: Dialysis Stop: 11/22/24 09:19 Last Infusion: 11/23/23 09:43 Dose: Infused Insulin Aspart (Insulin Aspart 300 Units/3 Ml Insuln.Pen) 0 units SUBCUT ACHS [facility]; Protocol Stop: 11/20/24 16:29 Last Admin: 11/23/23 08:52 Dose: Not Given Insulin Human Regular (Insulin Regular U-500, Human 1,500 Unit/3 Ml Insuln.Pen) 50 unit SUBCUT BID [facility] Stop: 11/20/24 08:59 Last Admin: 11/23/23 08:53 Dose: Not Given Levothyroxine Sodium (Levothyroxine 100 Mcg Tablet) 100 mcg PO DAILY.0630 [facility] Stop: 11/20/24 06:29 Last Admin: 11/23/23 05:38 [...] In Packet 1 packet TRANSDERML DAILY [facility] Stop: 11/20/24 08:59 Last Admin: 11/23/23 08:53 Dose: Not Given Tirzepatide [ Mounjaro] 5 Mg/0.5 Ml Pen Injector 5 mg SUBCUT Tu@0900 [facility] Stop: 11/29/24 08:59 Ondansetron HCl (Ondansetron 4 [...] for treatment for discharge planning. Documented By: Tyesha Hernández MD 11/23/23 105 Signed By: <Electronically signed by MD Tyesha Hernández> 11/23/231053 [facility] Work Phone: [phone] Progress note Author Ada Uriostegui [facility] November 22, 2023 12:53pm Note Date/Time November 22, 2023 12: 53pm [facility] [address] [place] [address] Nephrology Progress Note Signed Patient: Evans Forte MR#: [id number] : 1970 Acct:[id number] Age/Sex: 53 / M Adm Date: 4 Loc: Room: [address] [place] [address] Type: ADM IN Attending Dr: Amy Escudero DO Copies to: ~ Date of Service: 11/22/2023 Subjective Subjective Narrative: This is a 53-year-old male patient with a past medical history of hypertension, hyperlipidemia, end-stage renal disease on TTS hemodialysis schedule at [facility], insulin-dependent diabetes mellitus, obstructive sleep [...] Skin: No rashes , warm to touch E D TECH: Awake,Alert, following simple command Musculoskeletal: No joint [...] Mg Tablet) 1 mg PO QAM [facility] Stop: 11/20/24 08:59 Last Admin: 11/22/23 08:14 Dose: 1 mg Atorvastatin Calcium (Atorvastatin 20 Mg Tablet) 20 mg PO QAM [facility] Stop: 11/20/24 08:59 Last Admin: 11/22/23 08:13 Dose: 20 mg Calcitriol (Calcitriol 0.25 Mcg Capsule) 0.25 mcg PO TuThSa@0900 [facility] Stop: 11/22/24 08:59 Calcium Acetate (Calcium Acetate 667 Mg Capsule) 2,668 mg PO AC [facility] Stop: 11/20/24 07:29 Last Admin: 11/22/23 11:21 Dose: 2,668 mg Carvedilol (Carvedilol 6.25 Mg Tablet) 6.25 mg PO BID [facility] Stop: 11/21/24 12:19 Cyanocobalamin (Cyanocobalamin 1,000 Mcg Tablet) 1,000 mcg PO DAILY [facility] Stop: 11/20/24 08:59 Last Admin: 11/22/23 08:13 Dose: 1,000 mcg Heparin Sodium (Porcine) (Heparin 5,000 Unit/Ml Vial) 5,000 unit SUBCUT Q12HR [facility] Stop: 11/20/24 08:59 Last Admin: 11/22/23 08:14 Dose: 5,000 unit Linezolid (Zyvox) 600 mg in 300 mls @ 300 mls/hr IV Q12H [facility] Last Admin: 11/22/23 08:58 Dose: 300 mls/hr Ceftriaxone Sodium (Rocephin) 2 gm in 50 mls @ 100 mls/hr IV Q24H [facility] Last Admin: 11/21/23 19:41 Dose: 100 mls/hr Insulin Aspart (Insulin Aspart 300 Units/3 Ml Insuln.Pen) 0 units SUBCUT [facility]; Protocol Stop: 11/20/24 16:29 Last Admin: 11/22/23 11:22 Dose: 2 units Insulin Human Regular (Insulin Regular U-500, Human 1,500 Unit/3 Ml Insuln.Pen) 50 unit SUBCUT BID [facility] Stop: 11/20/24 08:59 Last Admin: 11/22/23 08:16 Dose: 50 unit Levothyroxine Sodium (Levothyroxine 100 Mcg Tablet) 100 mcg PO DAILY.0630 [facility] Stop: 11/20/24 06:29 Last Admin: 11/22/23 05:29 [...] In Packet 1 packet TRANSDERML DAILY [facility] Stop: 11/20/24 08:59 Last Admin: 11/22/23 11:21 Dose: Not Given Tirzepatide [ Mounjaro] 5 Mg/0.5 Ml Pen Injector 5 mg SUBCUT Tu@0900 [facility] Stop: 11/29/24 08:59 Ondansetron HCl (Ondansetron 4 Mg/2 Ml Vial) 4 mg IV-PUSH Q8H PRN PRN Reason: Nausea And Vomiting Stop: 11/19/24 21:02 Pregabalin (Pregabalin 150 Mg Capsule) 150 mg PO BID [facility] Stop: 05/19/24 08:59 Last Admin: 11/22/23 08:14 [...] Taqueria Reese M.D.11/21/2023 4:39 PM Dictation Location: [address] 11/22/23 07:00 IMPRESSION: NO HEMODYNAMICALLY SIGNIFICANT PERIPHERAL VASCULAR OCCLUSIVE DISEASE AT REST IN EITHER LOWER EXTREMITY. Impression dictated by: Ramirez Jean M.D.11/22/2023 10:09 AM Dictation Location: [place] [address] Any impression(s) listed above is documentation that [...] diabetic nephropathy. Patient has been going to [facility] on [facility] for hemodialysis. Last hemodialysis session was yesterday [...] <Electronically signed by Ada Uriostegui MD> 11/22/23 125 [facility] Work Phone: [phone] Progress note Author Amy Escudero [facility] November 22, 2023 12:45pm Note Date/Time November 22, 2023 10: 37am [facility] [address] [place] [address] Hospitalist Progress Note Signed Patient: Evans Forte MR#: [id number] : 1970 Acct:[id number] Age/Sex: 53 / M Adm Date: 4 Loc: Room: [address] [place] [address] Type: ADM IN Attending Dr: Amy Escudero [...] SUBCUT 11/20/24 16:29 Not Given ACHS [facility] Protocol Insulin Human Regular 50 unit 11/21/23 [...] signed by Amy Escudero DO> 11/22/23 1245 [facility] Work Phone: [phone] Consult note Author Tyesha Hernández [facility] November 22, 2023 11:26am Note Date/Time November 22, 2023 11: 26am [facility] [address] [place] [address] Infect. Disease Consult Note Signed Patient: Evans Forte MR#: [id number] : 1970 Acct:[id number] Age/Sex: 53 / M Adm Date: 4 Loc: Room: [address] [place] [address] Type: ADM IN Attending Dr: Amy Escudero DO Copies to: DO Tyesha Dhillon MD Yazid Hussein, DO~ HPI Data [...] negative unless noted below or in HPI [facility] Medical History (Updated 11/22/23 @ 11:24 by Tyesha Hernández MD) Hypertension Hyperlipidemia End stage renal disease Dependence on renal dialysis Anemia Insulin long-term use Chronic kidney disease, stage 4 (severe) Sleep apnea no machine Pancreatitis Hypothyroid Hyperlipidemia Anemia Dependence on renal dialysis End stage renal disease PD catheter dysfunction Cellulitis Hypertension Neuropathy slim feet-tingling Renal insufficiency Diabetes mellitus, type 2 Surgical History [place] cardiac [place] [facility] [place] of orthopedic surgery right foot has [...] Mg Tablet) 1 mg PO QAM [facility] Stop: 11/20/24 08:59 Last Admin: 11/22/23 08:14 Dose: 1 mg Atorvastatin Calcium (Atorvastatin 20 Mg Tablet) 20 mg PO QAM [facility] Stop: 11/20/24 08:59 Last Admin: 11/22/23 08:13 Dose: 20 mg Calcitriol (Calcitriol 0.25 Mcg Capsule) 0.25 mcg PO TuThSa@0900 [facility] Stop: 11/22/24 08:59 Calcium Acetate (Calcium Acetate 667 Mg Capsule) 2,668 mg PO AC [facility] Stop: 11/20/24 07:29 Last Admin: 11/22/23 08:13 Dose: 2,668 mg Cyanocobalamin (Cyanocobalamin 1,000 Mcg Tablet) 1,000 mcg PO DAILY [facility] Stop: 11/20/24 08:59 Last Admin: 11/22/23 08:13 Dose: 1,000 mcg Heparin Sodium (Porcine) (Heparin 5,000 Unit/Ml Vial) 5,000 unit SUBCUT Q12HR [facility] Stop: 11/20/24 08:59 Last Admin: 11/22/23 08:14 Dose: 5,000 unit Linezolid (Zyvox) 600 mg in 300 mls @ 300 mls/hr IV Q12H [facility] Last Admin: 11/22/23 08:58 Dose: 300 mls/hr Ceftriaxone Sodium (Rocephin) 2 gm in 50 mls @ 100 mls/hr IV Q24H [facility] Last Admin: 11/21/23 19:41 Dose: 100 mls/hr Insulin Aspart (Insulin Aspart 300 Units/3 Ml Insuln.Pen) 0 units SUBCUT ACHS [facility]; Protocol Stop: 11/20/24 16:29 Last Admin: 11/22/23 08:13 Dose: Not Given Insulin Human Regular (Insulin Regular U-500, Human 1,500 Unit/3 Ml Insuln.Pen) 50 unit SUBCUT BID [facility] Stop: 11/20/24 08:59 Last Admin: 11/22/23 08:16 Dose: 50 unit Levothyroxine Sodium (Levothyroxine 100 Mcg Tablet) 100 mcg PO DAILY.0630 [facility] Stop: 11/20/24 06:29 Last Admin: 11/22/23 05:29 [...] In Packet 1 packet TRANSDERML DAILY [facility] Stop: 11/20/24 08:59 Last Admin: 11/21/23 10:14 Dose: Not Given Tirzepatide [ Mounjaro] 5 Mg/0.5 Ml Pen Injector 5 mg SUBCUT Tu@0900 [facility] Stop: 11/29/24 08:59 Ondansetron HCl (Ondansetron 4 [...] ml @ 300 mls/hr IV Q12H [facility] Rx# :[id number] Output: Urine 100 / 100 Other: # [...] Linezolid and ceftriaxone to continue. Documented By: Tyesha Hernández MD 11/22/23 1117 Signed By: <Electronically signed by MD Tyesha Hernández> 11/22/23 1122 [facility] Work Phone: [phone]) 462-715603-17-2024 Progress note Author Arnol Calloway [facility] November 21, 2023 5:52pm Note Date/Time November 21, 2023 11: 07am [facility] [address] [place], [place] [id number] Hospitalist Progress Note Signed Patient: Evans Forte MR#: Maeve [id number] : 1970 Acct:[id number] Age/Sex: 53 / M Adm Date: 4 Loc: 3T Room: [address] [place] [address] Type: ADM IN Attending Dr: Arnol Calloway [...] as neuropathy. Follows with Dr. Fonseca/podiatry in [place] but indicates has not had vascular studies [...] signed by Arnol Calloway MD> 11/21/23 1752 [facility] Work Phone: [phone] Consult note Author Yocasta Villalba [facility] November 21, 2023 10:16am Note Date/Time November 21, 2023 10: 16am [facility] [address] [place] [address] Nephrology Consult Note Signed Patient: Evans Forte MR#: [id number] : 1970 Acct:[id number] Age/Sex: 53 / M Adm Date: 4 Loc: Room: [address] [place] [address] Type: ADM IN Attending Dr: Arnol Calloway [...] renal disease on TTS hemodialysis schedule at [facility], insulin-dependent diabetes mellitus, obstructive sleep [...] systems: 12 system review is negative today [facility] Medical History (Updated 11/21/23 @ 10:12 by [...] 2 Surgical History [place] cardiac [place] [facility] [place] of orthopedic surgery right foot has [...] Mg Tablet) 1 mg PO QAM [facility] Stop: 11/20/24 08:59 Last Admin: 11/21/23 08:00 Dose: 1 mg Atorvastatin Calcium (Atorvastatin 20 Mg Tablet) 20 mg PO QAM [facility] Stop: 11/20/24 08:59 Last Admin: 11/21/23 08:00 Dose: 20 mg Calcitriol (Calcitriol 0.25 Mcg Capsule) 0.25 mcg PO TuThSa@0900 [facility] Stop: 11/22/24 08:59 Calcium Acetate (Calcium Acetate 667 Mg Capsule) 2,668 mg PO AC [facility] Stop: 11/20/24 07:29 Last Admin: 11/21/23 07:54 Dose: 2,668 mg Cyanocobalamin (Cyanocobalamin 1,000 Mcg Tablet) 1,000 mcg PO DAILY [facility] Stop: 11/20/24 08:59 Last Admin: 11/21/23 08:00 Dose: 1,000 mcg Heparin Sodium (Porcine) (Heparin 5,000 Unit/Ml Vial) 5,000 unit SUBCUT Q12HR [facility] Stop: 11/20/24 08:59 Last Admin: 11/21/23 08:00 Dose: 5,000 unit Linezolid (Zyvox) 600 mg in 300 mls @ 300 mls/hr IV Q12H [facility] Last Admin: 11/21/23 09:06 Dose: 300 mls/hr Ceftriaxone Sodium (Rocephin) 2 gm in 50 mls @ 100 mls/hr IV Q24H [facility] Insulin Human Regular (Insulin Regular U-500, Human 1,500 Unit/3 Ml Insuln.Pen) 50 unit SUBCUT BID [facility] Stop: 11/20/24 08:59 Last Admin: 11/21/23 08:00 Dose: 50 unit Levothyroxine Sodium (Levothyroxine 100 Mcg Tablet) 100 mcg PO DAILY.0630 [facility] Stop: 11/20/24 06:29 Last Admin: 11/21/23 05:39 [...] In Packet 1 packet TRANSDERML DAILY [facility] Stop: 11/20/24 08:59 Tirzepatide [ Mounjaro] 5 Mg/0.5 Ml Pen Injector 5 mg SUBCUT Tu@0900 [facility] Stop: 11/29/24 08:59 Ondansetron HCl (Ondansetron 4 Mg/2 Ml Vial) 4 mg IV-PUSH Q8H PRN PRN Reason: Nausea And Vomiting Stop: 11/19/24 21:02 Pregabalin (Pregabalin 150 Mg Capsule) 150 mg PO BID [facility] Stop: 05/19/24 08:59 Last Admin: 11/21/23 08:00 [...] Taqueria Reese M.D.11/21/2023 8:08 AM Dictation Location: [place] [address] Any impression(s) listed above is documentation that [...] diabetic nephropathy. Patient has been going to [facility] on [facility] for hemodialysis. Last hemodialysis session was yesterday [...] signed by Yocasta Villalba MD> 11/21/23 1016 [facility] Work Phone: [phone] History and physical note Author Buddy Murguia [facility] November 20, 2023 10:57pm Note Date/Time November 20, 2023 10: 38pm [facility] [address] [place] [address] Hospitalist H&P Signed Patient: Evans Forte MR#: Maeve [id number] : 1970 Acct:[id number] Age/Sex: 53 / M Adm Date: 4 Loc: Room: [address] [place] [address] Type: ADM IN Attending Dr: Buddy Murguia [...] negative unless noted below or in HPI [facility] Medical History (Updated 11/20/23 @ 22:54 by [...] 2 Surgical History [place] cardiac [place] [facility] [place] of orthopedic surgery right foot has [...] 19:00 Lymph % (Auto) N/A 11/20/23 19:00 [place] % (Auto) N/A 11/20/23 19:00 Eos % (Auto) N/A 11/20/23 19:00 Baso % (Auto) N/A 11/20/23 19:00 Nucleat RBC Rel Count N/A 11/20/23 19:00 Neut # (Auto) N/A 11/20/23 19:00 Lymph # (Auto) N/A 11/20/23 19:00 [place] # (Auto) N/A 11/20/23 19:00 Eos # [...] 11/20/232236 Signed By: <Electronically signed by Buddy Murguia DO> 11/20/23 6552 [facility] Work Phone: [phone]) 612-280702-07-2024 History of Present illness Narrative* Flakito High, - 10/13/2023 11:15 AM EST Images from the original note were not included. Evans Shen Jann 1970 Evans Shen Jann is a 53 y.o. male presents with [...] Units tablet Daily RT Continuous Blood Gluc [employer] [place] (Dexcom G7 [employer]) device Every 24 hours Continuous Blood Gluc [...] Reaction(s): Unknown Other reaction(s): Unknown Haloperidol Anxiety Milam Oil GI intolerance Runny nose, watery eyes Wound Dressing Adhesive Rash PAST MEDICAL HISTORY: SOCIAL HISTORY SURGICAL HISTORY: Past Medical History: Diagnosis Date Allergies CKD (chronic kidney disease) Diabetes ([facility]) Family history of cancer Glaucoma ([facility] History of being hospitalized 02/05/2017 [facility] - Discharged 02/07/17 Hyperlipidemia ([facility]) Hypertension ([facility]) Hypothyroidism (acquired) ([facility]) GUSTAVO (obstructive sleep apnea) Osteomyelitis of left foot ([facility]) PAD (peripheral artery disease) ([facility]) Pancreatitis x3 Subcutaneous mass of back [...] visit: Peritoneal dialysis catheter dysfunction, subsequent encounter ([facility]) Plan is for removal of peritoneal dialysis catheter. I discussed with him the procedure and the risks and potential complications including but not limited to bleeding, infection, pain, possible needfor abdominal exploration if can not remove the catheter easily, possible foreign body retained. Heunderstands and he would like to proceed. No follow-ups on file. documented in this encounterSSM [id number] Evaluation note* Encounter Date Diagnosis Assessment Notes [...] He understands and agrees with that plan [facility] Other 01-11-2024 History and physical note Author Ramirez Jean [facility] September 16, 2023 1:55pm Note Date/Time September 16, 2023 1 :56pm [facility] [address] [place] [address] Vascular Surgery H&P Signed Patient: Evans Forte MR#: Maeve [id number] : 1970 Acct:[id number] Age/Sex: 53 / M Adm Date: 4 Loc: ME Room: Type: [facility] Attending Dr: Ramirez Jean MD Copies [...] negative unless noted below or in HPI [facility] Medical History (Updated 09/16/23 @ 11:02 by [...] % (Auto) 74.1 Lymph % (Auto) 14.7 [place] % (Auto) 7.3 Eos % (Auto) 3.5 Baso % (Auto) 0.4 Nucleat RBC Rel Count 0.0 Neut # (Auto) 8.4 H Lymph # (Auto) 1.7 [place] # (Auto) 0.8 Eos # (Auto) 0.4 [...] MPV Neut % (Auto) Lymph % (Auto) [place] % (Auto) Eos % (Auto) Baso % (Auto) Nucleat RBC Rel Count Neut # (Auto) Lymph # (Auto) [place] # (Auto) Eos # (Auto) Baso # [...] <Electronically signed by MD Ramirez Jean> 09/16/23 7[address] [facility] Work Phone: [phone]) 958-976410-16-2023 Evaluation note* Encounter Date Diagnosis Assessment Notes Treatment Notes Treatment Clinical Notes Jun, Type 2 diabetes mellitus with diabetic chronic kidney disease (ICD-10 - E11.22) Aligo Other 10-11-2023 Evaluation note* Encounter Date Diagnosis [...] your pharmacy, please contact our office at [phone]. Jun, Hypoglycemia (ICD-10 - E16.2) Low blood glucose and diabetes material was published Jun, CKD (chronic kidney disease) stage 5, GFR less than 15 ml/min (ICD-10 - N18.5) Living with chronic kidney disease material was published keep f/u with nephrology Jun, Other Ha was givena dexcom G7 sample at this [facility]. He stated that he was previously using [...] on his phone by George Vasques RN, [facility]. Aligo Other [id number] Evaluation note* Encounter Date Diagnosis Assessment Notes [...] advised him to take low potassium diet. Aligo Other 03-04-2023 Progress note Author Yocasta Villalba [facility] November 07, 2022 2:43pm Note Date/Time November 07, 2022 2:[address] [facility] [address] [place], [place] [id number] Nephrology Progress Note Signed Patient: Evans Forte MR#: [id number] : 1970 Acct:[id number] Age/Sex: 52 / M Adm Date: 3 Loc: Room: [address] [place] [address] Type: ADM IN Attending Dr: Tyesha Brewster DO Copies to: ~ Date of Service: 11/07/2022 Subjective Subjective Narrative: This is a 52-year-old male patient with a past sickle history of chronic kidney disease stage V from diabetic nephropathy, hypertension, morbid obesity, anemia of renal disease, neuropathy. 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 hyperkalemia with potassium 5.9 [...] 145 Mg Tablet) 145 mg PO DAILY VNICE Stop: 11/05/23 08:59 Last Admin: 11/07/22 08:37 Dose: 145 mg Ferrous Sulfate (Ferrous Sulfate 324 Mg Tablet.Dr) 324 mg PO DAILY [facility] Stop: 11/05/23 08:59 Last Admin: 11/07/22 08:38 [...] Unit/Ml Vial) 5,000 unit SUBCUT Q8HR [facility] Stop: 11/05/23 13:59 Last Admin: 11/07/22 13:45 Dose: 5,000 unit Hydralazine HCl (Hydralazine 20 Mg/Ml Vial) 10 mg IV-PUSH Q4H PRN PRN Reason: if SBP > 185 Stop: 11/04/23 23:30 Last Admin: 11/07/22 12:13 Dose: 10 mg Hydralazine HCl (Hydralazine 50 Mg Tablet) 100 mg PO TID [facility] Stop: 11/07/23 13:59 Last Admin: 11/07/22 13:44 Dose: 100 mg Ferric Sodium Gluconate Complex 250 mg/ Sodium Chloride 270 mls @ 135 mls/hr IVQAM [facility] Stop: 11/09/22 09:01 Last Admin: 11/07/22 09:49 Dose: 135 mls/hr Insulin Human Regular (Insulin Regular U-500, Human 1,500 Unit/3 Ml Insuln.Pen) 45 unit SUBCUT DAILY@1700 [facility] Stop: 11/05/23 16:59 Last Admin: 11/06/22 17:13 Dose: 45 unit Insulin Human Regular (Insulin Regular U-500, Human 1,500 Unit/3 Ml Insuln.Pen) 70 unit SUBCUT DAILY@0600 [facility] Stop: 11/05/23 05:59 Last Admin: 11/07/22 05:54 [...] Units) Tablet) 50 mcg PO DAILY [facility] Stop: 11/05/23 08:59 Last Admin: 11/07/22 08:37 [...] <Electronically signed by Yocasta Villalba MD> 11/07/22 1449 [facility] Work Phone: [phone]) 931-534203-04-2023 Progress note Author Masoud Maria [facility] November 07, 2022 8:40am Note Date/Time November 07, 2022 8:[address] [facility] [address] [place] [address] General Surgery Progress Note Signed Patient: Evans Forte MR#: [id number] : 1970 Acct:[id number] Age/Sex: 52 / M Adm Date: 3 Loc: Room: [address] [place] [address] Type: ADM IN Attending Dr: Tyesha Brewster DO Copies to: ~ Date of [...] Mg Capsule) 100 mg PO BID [facility] Stop: 11/06/23 20:59 Last Admin: 11/06/22 21:32 Dose: Not Given Emollient Ointment (Petrolatum,White 99 Gm Oint...G.) 1 applic TOPICAL DAILY [facility] Stop: 11/05/23 09:59 Last Admin: 11/07/22 05:55 Dose: 1 applic Fenofibrate (Fenofibrate Nanocrystallized 145 Mg Tablet) 145 mg PO DAILY [facility] Stop: 11/05/23 08:59 Last Admin: 11/05/22 08:48 Dose: 145 mg Ferrous Sulfate (Ferrous Sulfate 324 Mg Tablet.Dr) 324 mg PO DAILY [facility] Stop: 11/05/23 08:59 Last Admin: 11/06/22 10:32 Dose: Not Given Folic Acid (Cyanocobalamin/Fa/Pyridoxine 1 Tab Tablet) 1 tab PO DAILY [facility] Stop: 11/05/23 08:59 Last Admin: 11/06/22 10:32 Dose: Not Given Heparin Sodium (Porcine) (Heparin 5,000 Unit/Ml Vial) 5,000 unit SUBCUT Q8HR [facility] Stop: 11/05/23 13:59 Last Admin: 11/07/22 05:53 Dose: 5,000 unit Hydralazine HCl (Hydralazine 20 Mg/Ml Vial) 10 mg IV-PUSH Q4H PRN PRN Reason: if SBP > 185 Stop: 11/04/23 23:30 Last Admin: 11/04/22 23:40 Dose: 10 mg Hydralazine HCl (Hydralazine 50 Mg Tablet) 50 mg PO TID [facility] Stop: 11/05/23 05:59 Last Admin: 11/06/22 21:32 [...] Ml Insuln.Pen) 45 unit SUBCUT DAILY@1700 [facility] Stop: 11/05/23 16:59 Last Admin: 11/06/22 17:13 Dose: 45 unit Insulin Human Regular (Insulin Regular U-500, Human 1,500 Unit/3 Ml Insuln.Pen) 70 unit SUBCUT DAILY@0600 [facility] Stop: 11/05/23 05:59 Last Admin: 11/07/22 05:54 Dose: 70 unit Labetalol HCl (Labetalol 100 Mg/20 Ml Vial) 10 mg IV-PUSH Q10M PRN PRN Reason: Hypertension Stop: 11/04/23 16:31 Last Admin: 11/04/22 21:41 Dose: 10 mg Levothyroxine Sodium (Levothyroxine 100 Mcg Tablet) 100 mcg PO DAILY@0630 [facility] Stop: 11/05/23 06:29 Last Admin: 11/07/22 05:55 Dose: 100 mcg Lorazepam (Lorazepam 2 Mg/Ml Vial) 0.5 mg IV-PUSH Q4H PRN PRN Reason: Agitation Stop: 05/05/23 16:50 Last Admin: 11/06/22 17:11 Dose: 0.5 mg Nifedipine (Nifedipine Er.24hr 90 Mg Tab.Er.24) 90 mg PO DAILY [facility] Stop: 11/05/23 08:59 Last Admin: 11/06/22 10:32 Dose: Not Given Pregabalin (Pregabalin 50 Mg Capsule) 50 mg PO DAILY [facility] Stop: 05/04/23 08:59 Last Admin: 11/06/22 10:32 Dose: Not Given Sodium Bicarbonate (Sodium Bicarbonate 650 Mg Tablet) 1,300 mg PO BID [facility] Stop: 11/05/23 10:29 Last Admin: 11/06/22 21:32 [...] % (Auto) 87.5, Lymph % (Auto) 5.8, [place] % (Auto) 6.5, Eos % (Auto)0.1, Baso % (Auto) 0.1, Nucleat RBC Rel Count 0.1, Neut # (Auto) 10.9 H, Lymph #(Auto) 0.7 L, [place] # (Auto) 0.8, Eos # (Auto) 0.0, [...] % (Auto) 74.7, Lymph % (Auto) 13.3, [place] % (Auto) 9.0, Eos % (Auto) 2.5, Baso % (Auto) 0.5, Nucleat RBC Rel Count 0.1, Neut # (Auto) 10.0 H, Lymph # (Auto) 1.8, [place] # (Auto) 1.2 H, Eos # (Auto) [...] signed by Masoud Maria DO> 11/07/22 0840 [facility] Work Phone: [phone]) 301-692803-03-2023 Progress note Author Tyesha Brewster [facility] November 06, 2022 5:26pm Note Date/Time November 06, 2022 5:[address] [facility] [address] [place] [address] Hospitalist Progress Note Signed Patient: Evans Forte MR#: Maeve [id number] : 1970 Acct:[id number] Age/Sex: 52 / M Adm Date: 3 Loc: 4 Room: [address] [place] [address] Type: ADM IN Attending Dr: Tyesha Brewster DO Copies to: ~ Date of [...] PO 11/05/23 08:59 Not Given DAILY [facility] Atorvastatin Calcium 20 mg 11/05/22 09:00 11/06/22 10:32 Atorvastatin 20 Mg Tablet PO 11/05/23 08:59 Not Given DAILY [facility] Carvedilol 25 mg 11/04/22 21:00 11/06/22 09:05 Carvedilol 25 Mg Tablet PO 11/04/23 20:59 25 mg BID VINCE Administration Docusate Sodium 100 mg 11/06/22 21:00 Docusate 100 Mg Capsule PO 11/06/23 20:59 BID [facility] Emollient Ointment 1 applic 11/05/22 10:00 11/06/22 09:05 Petrolatum,White 99 Gm Oint...G. TOPICAL 11/05/23 09:59 1 applic DAILY VINCE Administration Fenofibrate 145 mg 11/05/22 09:00 11/05/22 08:48 Fenofibrate Nanocrystallized 145 Mg Tablet PO 11/05/23 08:59 145 mg DAILY VINCE Administration Ferrous Sulfate 324 mg 11/05/22 09:00 11/06/22 10:32 Ferrous Sulfate 324 Mg Tablet. PO 11/05/23 08:59 Not Given DAILY [facility] Folic Acid 1 tab 11/05/22 09:00 11/06/22 10:32 Cyanocobalamin/Fa/Pyridoxine 1 Tab Tablet PO 11/05/23 08:59 Not Given DAILY [facility] Heparin Sodium (Porcine) 5,000 unit 11/05/22 14:00 11/06/22 14:15 Heparin 5,000 Unit/Ml Vial SUBCUT 11/05/23 13:59 Not Given Q8HR [facility] Hydralazine HCl 10 mg 11/04/22 23:31 11/04/22 [...] IV 11/09/22 09:01 Infused Chloride QAM [facility] Infusion Insulin Human Regular 45 unit 11/05/22 17:00 11/06/22 17:13 Insulin Regular U-500, Human 1,500 Unit/3 Ml Insuln.Pen SUBCUT 11/05/23 16:59 45 unit DAILY@1700 [facility] Administration Insulin Human Regular 70 unit 11/05/22 06:00 11/06/22 06:25 Insulin Regular U-500, Human 1,500 Unit/3 Ml Insuln.Pen SUBCUT 11/05/23 05:59 Not Given DAILY@0600 [facility] Insulin Human Regular 0 unit 11/06/22 12:34 [...] PO 11/05/23 06:29 Not Given DAILY@0630 [facility] Lidocaine HCl 0.1 ml 11/06/22 12:34 Lidocaine 1% 20 Ml Vial INTRADERMA 11/06/22 18:34 PREOP PRN Venipuncture Lorazepam 0.5 mg 11/06/22 16:51 11/06/22 17:11 Lorazepam 2 Mg/Ml Vial IV-PUSH 05/05/23 16:50 0.5 mg Q4H PRN Administration Agitation Nifedipine 90 mg 11/05/22 09:00 11/06/22 10:32 Nifedipine Er.24hr 90 Mg Tab.Er.24 PO 11/05/23 08:59 Not Given DAILY [facility] Pregabalin 50 mg 11/05/22 09:00 11/06/22 10:32 [...] 08:59 Not Given DAILY VINCE Documented By: Tyesha Brewster DO 11/06/22 17 24 Signed By: <Electronically signed by Tyesha Brewster DO> 11/06/22 5346 [facility] Work Phone: [phone]) [phone] Progress note Author Yocasta Villalba [facility] November 06, 2022 2:57pm Note Date/Time November 06, 2022 2:[address] [facility] [address] [place] [address] Nephrology Progress Note Signed Patient: Evans Forte MR#: [id number] : 1970 Acct:[id number] Age/Sex: 52 / M Adm Date: 3 Loc: Room: [address] [place] [address] Type: ADM IN Attending Dr: Tyesha Brewster DO Copies to: ~ Date of Service: 11/06/2022 Subjective Subjective Narrative: This is a 52-year-old male patient with a past sickle history of chronic kidney disease stage V from diabetic nephropathy, hypertension, morbid obesity, anemia of renal disease, neuropathy. 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 hyperkalemia with potassium 5.9 [...] Mg Tablet) 500 mg PO DAILY [facility] Stop: 11/05/23 08:59 Last Admin: 11/06/22 10:32 Dose: Not Given Atorvastatin Calcium (Atorvastatin 20 Mg Tablet) 20 mg PO DAILY [facility] Stop: 11/05/23 08:59 Last Admin: 11/06/22 10:32 Dose: Not Given Carvedilol (Carvedilol 25 Mg Tablet) 25 mg PO BID [facility] Stop: 11/04/23 20:59 Last Admin: 11/06/22 09:05 Dose: 25 mg Docusate Sodium (Docusate 100 Mg Capsule) 100 mg PO BID [facility] Stop: 11/06/23 20:59 Droperidol (Droperidol 5 Mg/2 Ml Vial) 1.25 mg IV-PUSH ONCE PRN PRN Reason: Nausea And Vomiting Stop: 11/06/22 16:28 Emollient Ointment (Petrolatum,White 99 Gm Oint...G.) 1 applic TOPICAL DAILY [facility] Stop: 11/05/23 09:59 Last Admin: 11/06/22 09:05 Dose: 1 applic Fenofibrate (Fenofibrate Nanocrystallized 145 Mg Tablet) 145 mg PO DAILY [facility] Stop: 11/05/23 08:59 Last Admin: 11/05/22 08:48 Dose: 145 mg Ferrous Sulfate (Ferrous Sulfate 324 Mg Tablet.Dr) 324 mg PO DAILY [facility] Stop: 11/05/23 08:59 Last Admin: 11/06/22 10:32 Dose: Not Given Folic Acid (Cyanocobalamin/Fa/Pyridoxine 1 Tab Tablet) 1 tab PO DAILY [facility] Stop: 11/05/23 08:59 Last Admin: 11/06/22 10:32 Dose: Not Given Heparin Sodium (Porcine) (Heparin 5,000 Unit/Ml Vial) 5,000 unit SUBCUT Q8HR [facility] Stop: 11/05/23 13:59 Last Admin: 11/06/22 14:15 Dose: Not Given Hydralazine HCl (Hydralazine 20 Mg/Ml Vial) 10 mg IV-PUSH Q4H PRN PRN Reason: if SBP > 185 Stop: 11/04/23 23:30 Last Admin: 11/04/22 23:40 Dose: 10 mg Hydralazine HCl (Hydralazine 50 Mg Tablet) 50 mg PO TID [facility] Stop: 11/05/23 05:59 Last Admin: 11/06/22 10:32 Dose: Not Given Sodium Chloride (0.9% Sodium Chloride 500 Ml) 500 mls @ 20 mls/hr IV ONCE ONE Stop: 11/07/22 10:00 Last Admin: 11/06/22 10:37 Dose: 20 mls/hr Ferric Sodium Gluconate Complex 250 mg/ Sodium Chloride 270 mls @ 135 mls/hr IVQAM [facility] Stop: 11/09/22 09:01 Last Infusion: 11/06/22 13:03 Dose: Infused Insulin Human Regular (Insulin Regular U-500, Human 1,500 Unit/3 Ml Insuln.Pen) 45 unit SUBCUT DAILY@1700 [facility] Stop: 11/05/23 16:59 Last Admin: 11/05/22 18:24 Dose: 45 unit Insulin Human Regular (Insulin Regular U-500, Human 1,500 Unit/3 Ml Insuln.Pen) 70 unit SUBCUT DAILY@0600 [facility] Stop: 11/05/23 05:59 Last Admin: 11/06/22 06:25 [...] Mcg Tablet) 100 mcg PO DAILY@0630 [facility] Stop: 11/05/23 06:29 Last Admin: 11/06/22 06:38 Dose: Not Given Lidocaine HCl (Lidocaine 1% 20 Ml Vial) 0.1 ml INTRADERMA PREOP PRN PRN Reason: Venipuncture Stop: 11/06/22 15:01 Lidocaine HCl (Lidocaine 1% 20 Ml Vial) 0.1 ml INTRADERMA PREOP PRN PRN Reason: Venipuncture Stop: 11/06/22 18:34 Nifedipine (Nifedipine Er.24hr 90 Mg Tab.Er.24) 90 mg PO DAILY [facility] Stop: 11/05/23 08:59 Last Admin: 11/06/22 10:32 Dose: Not Given Ondansetron HCl (Ondansetron 4 Mg/2 Ml Vial) 4 mg IV-PUSH ONCE PRN PRN Reason: Nausea/Vomiting Stop: 11/06/22 16:28 Pregabalin (Pregabalin 50 Mg Capsule) 50 mg PO DAILY [facility] Stop: 05/04/23 08:59 Last Admin: 11/06/22 10:32 Dose: Not Given Sodium Bicarbonate (Sodium Bicarbonate 650 Mg Tablet) 1,300 mg PO BID [facility] Stop: 11/05/23 10:29 Last Admin: 11/06/22 10:32 Dose: Not Given Sodium Chloride (Sodium Chloride 0.9 % 10 Ml Syringe) 0 ml IV-PUSH PRN PRN PRN Reason: Flush Stop: 11/04/23 13:53 Sodium Zirconium Cyclosilicate 10 gm/ Sodium Zirconium Cyclosilicate 5 gm 15 gmPO DAILY [facility] Stop: 11/06/23 10:29 Vitamin A (Vitamin A [...] <Electronically signed by Yocasta Villalba MD> 11/06/22 1453 [facility] Work Phone: 1([phone]) 293-378103-02-2023 Progress note Author Tyesha Brewster [facility] November 05, 2022 3:55pm Note Date/Time November 05, 2022 3:[address] [facility] [address] [place] [address] Hospitalist Progress Note Signed Patient: Evans Forte MR#: [id number] : 1970 Acct:[id number] Age/Sex: 52 / M Adm Date: 3 Loc: Room: [address] [place] [address] Type: ADM IN Attending Dr: Tyesha Brewster DO Copies to: ~ Date of [...] Ml Insuln.Pen SUBCUT 11/05/23 16:59 DAILY@1700 [facility] Insulin Human Regular 70 unit 11/05/22 06:00 11/05/22 08:05 Insulin Regular U-500, Human 1,500 Unit/3 Ml Insuln.Pen SUBCUT 11/05/23 05:59 70 unit DAILY@0600 [facility] Administration Labetalol HCl 10 mg 11/04/22 16:32 [...] 50 mg DAILY VINCE Administration Documented By: Tyesha Brewster DO 11/05/22 15 54 Signed By: <Electronically signed by Tyesha Brewster DO> 11/05/22 1557 [facility] Work Phone: 1(843) 704-954303-02-2023 Consult note Author Yocasta Villalba [facility] November 05, 2022 2:39pm Note Date/Time November 05, 2022 2:[address] [facility] [address] [place] [address] Nephrology Consult Note Signed Patient: Evans Forte MR#: [id number] : 1970 Acct:[id number] Age/Sex: 52 / M Adm Date: 3 Loc: Room: [address] [place] [address] Type: ADM IN Attending Dr: Tyesha Brewster DO Copies to: DO Yocasta Dhillon MD Michael R. Frings, DO~ Providers Consult Date: 11/05/22 Requesting Provider: Tyesha Brewster DO Primary Care Provider: Idania Ricketts DO HPI Reason for Consult: Chronic kidney disease stage V History of Present Illness: This is a 52-year-old male patient with a past sickle history of chronic kidney disease stage V from diabetic nephropathy, hypertension, morbid obesity, anemia of renal disease, neuropathy. 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 hyperkalemia with potassium 5.9 [...] Oint...G.) 1 applic TOPICAL DAILY [facility]INCE Stop: 03/01/24 09:59 Fenofibrate (Fenofibrate Nanocrystallized 145 Mg Tablet) 145 mg PO DAILY [facility] Stop: 11/05/23 08:59 Last Admin: 11/05/22 08:48 Dose: 145 mg Ferrous Sulfate (Ferrous Sulfate 324 Mg Tablet.Dr) 324 mg PO DAILY [facility] Stop: 11/05/23 08:59 Last Admin: 11/05/22 08:52 Dose: 324 mg Folic Acid (Cyanocobalamin/Fa/Pyridoxine 1 Tab Tablet) 1 tab PO DAILY [facility] Stop: 11/05/23 08:59 Last Admin: 11/05/22 08:48 Dose: 1 tab Heparin Sodium (Porcine) (Heparin 5,000 Unit/Ml Vial) 5,000 unit SUBCUT Q8HR [facility] Stop: 11/05/23 13:59 Hydralazine HCl (Hydralazine 20 Mg/Ml Vial) 10 mg IV-PUSH Q4H PRN PRN Reason: if SBP > 185 Stop: 11/04/23 23:30 Last Admin: 11/04/22 23:40 Dose: 10 mg Hydralazine HCl (Hydralazine 50 Mg Tablet) 50 mg PO TID [facility] Stop: 11/05/23 05:59 Last Admin: 11/05/22 08:52 Dose: 50 mg Insulin Human Regular (Insulin Regular U-500, Human 1,500 Unit/3 Ml Insuln.Pen) 45 unit SUBCUT DAILY@1700 [facility] Stop: 11/05/23 16:59 Insulin Human Regular (Insulin Regular U-500, Human 1,500 Unit/3 Ml Insuln.Pen) 70 unit SUBCUT DAILY@0600 [facility] Stop: 11/05/23 05:59 Last Admin: 11/05/22 08:05 Dose: 70 unit Labetalol HCl (Labetalol 100 Mg/20 Ml Vial) 10 mg IV-PUSH Q10M PRN PRN Reason: Hypertension Stop: 11/04/23 16:31 Last Admin: 11/04/22 21:41 Dose: 10 mg Levothyroxine Sodium (Levothyroxine 100 Mcg Tablet) 100 mcg PO DAILY@0630 [facility] Stop: 11/05/23 06:29 Last Admin: 11/05/22 06:10 Dose: 100 mcg Nifedipine (Nifedipine Er.24hr 90 Mg Tab.Er.24) 90 mg PO DAILY [facility] Stop: 11/05/23 08:59 Last Admin: 11/05/22 08:52 [...] ACUTE FINDINGS Impression dictated by: Anibal Escudero Jr. DLuis Manuel11/04/2022 3:50 PM Dictation Location: [place] [address] Any impression(s) listed above is documentation that [...] <Electronically signed by Yocasta Villalba MD> 11/05/22 1435 [facility] Work Phone: 1(251) 511-397503-02-2023 Consult note Author Flakito High [facility] November 05, 2022 12:31pm Note Date/Time November 05, 2022 12:[address] [facility] [address] [place] [address] General Surgery Consult Note Signed Patient: Evans Forte MR#: Maeve [id number] : 1970 Acct:[id number] Age/Sex: 52 / M Adm Date: 3 Loc: Room: [address] [place] [address] Type: ADM IN Attending Dr: Tyesha Brewster DO Copies to: DO Tyesha Dhillon DO Paul C Laffay, DO~ History of Present Illness Date of consult: 11/05/2022 Requesting/Attending Provider: Tyesha Brewster DO History of present illness: Patient has had worsening kidney function and it is gotten to the point where heneeds to start peritoneal dialysis. He is very motivated to do that instead of hemodialysis. He has talked his warehouse receiving supervisor about this. He is not having any [...] Mg Tablet) 25 mg PO BID [facility] Stop: 11/04/23 20:59 Last Admin: 11/05/22 08:50 Dose: 25 mg Emollient Ointment (Petrolatum,White 99 Gm Oint...G.) 1 applic TOPICAL DAILY [facility] Stop: 11/05/23 09:59 Fenofibrate (Fenofibrate Nanocrystallized 145 Mg Tablet) 145 mg PO DAILY [facility] Stop: 11/05/23 08:59 Last Admin: 11/05/22 08:48 Dose: 145 mg Ferrous Sulfate (Ferrous Sulfate 324 Mg Tablet.Dr) 324 mg PO DAILY [facility] Stop: 11/05/23 08:59 Last Admin: 11/05/22 08:52 Dose: 324 mg Folic Acid (Cyanocobalamin/Fa/Pyridoxine 1 Tab Tablet) 1 tab PO DAILY [facility] Stop: 11/05/23 08:59 Last Admin: 11/05/22 08:48 Dose: 1 tab Heparin Sodium (Porcine) (Heparin 5,000 Unit/Ml Vial) 5,000 unit SUBCUT Q8HR [facility] Stop: 11/05/23 13:59 Hydralazine HCl (Hydralazine 20 Mg/Ml Vial) 10 mg IV-PUSH Q4H PRN PRN Reason: if SBP > 185 Stop: 11/04/23 23:30 Last Admin: 11/04/22 23:40 Dose: 10 mg Hydralazine HCl (Hydralazine 50 Mg Tablet) 50 mg PO TID [facility] Stop: 11/05/23 05:59 Last Admin: 11/05/22 08:52 Dose: 50 mg Insulin Human Regular (Insulin Regular U-500, Human 1,500 Unit/3 Ml Insuln.Pen) 45 unit SUBCUT DAILY@1700 [facility] Stop: 11/05/23 16:59 Insulin Human Regular (Insulin Regular U-500, Human 1,500 Unit/3 Ml Insuln.Pen) 70 unit SUBCUT DAILY@0600 [facility] Stop: 11/05/23 05:59 Last Admin: 11/05/22 08:05 Dose: 70 unit Labetalol HCl (Labetalol 100 Mg/20 Ml Vial) 10 mg IV-PUSH Q10M PRN PRN Reason: Hypertension Stop: 11/04/23 16:31 Last Admin: 11/04/22 21:41 Dose: 10 mg Levothyroxine Sodium (Levothyroxine 100 Mcg Tablet) 100 mcg PO DAILY@0630 [facility] Stop: 11/05/23 06:29 Last Admin: 11/05/22 06:10 Dose: 100 mcg Nifedipine (Nifedipine Er.24hr 90 Mg Tab.Er.24) 90 mg PO DAILY VINCE Stop: 11/05/23 08:59 Last Admin: 11/05/22 08:52 Dose: 90 mg Pregabalin (Pregabalin 50 Mg Capsule) 50 mg PO DAILY VINCE Stop: 05/04/23 08:59 Last Admin: 11/05/22 08:52 Dose: 50 mg Sodium Bicarbonate (Sodium Bicarbonate 650 Mg Tablet) 650 mg PO BID [facility] Stop: 11/05/23 10:29 Last Admin: 11/05/22 12:03 Dose: 650 mg Sodium Chloride (Sodium Chloride 0.9 % 10 Ml Syringe) 0 ml IV-PUSH PRN PRN PRN Reason: Flush Stop: 11/04/23 13:53 Vitamin A (Vitamin A 3,000 Mcg (10,000 Units) Capsule) 3,000 mcg PO DAILY [facility] Stop: 11/05/23 08:59 Last Admin: 11/05/22 08:52 Dose: 3,000 mcg Vitamin D (Cholecalciferol 25 Mcg (1,000 Units) Tablet) 50 mcg PO DAILY [facility] Stop: 11/05/23 08:59 Last Admin: 11/05/22 08:50 [...] % (Auto) 72.3, Lymph % (Auto) 14.6, [place] % (Auto) 9.5, Eos % (Auto) 2.8, Baso % (Auto) 0.8, Nucleat RBC Rel Count 0.0, Neut # (Auto) 9.8 H, Lymph # (Auto) 2.0, [place] # (Auto) 1.3 H, Eos # (Auto) [...] % (Auto) 74.8, Lymph % (Auto) 12.4, [place] % (Auto) 9.0, Eos % (Auto) 2.7, Baso % (Auto) 1.1, Nucleat RBC Rel Count 0.0, Neut # (Auto) 9.1 H, Lymph # (Auto) 1.5, [place] # (Auto) 1.1 H, Eos # (Auto) 0.3, Baso # (Auto) 0.1, Monocyte Dist Width 17.32 11/04/22 14:04: Urine Color Yellow, Urine Appearance Clear, Urine pH 5.5, Ur Specific [place] 1.013, Urine Protein 300 H, Urine [...] signed by DO Flakito High> 11/05/22 1231 [facility] Work Phone: 1(541) 823-382903-01-2023 History and physical note Author Tyesha Brewster [facility] November 04, 2022 8:11pm Note Date/Time November 04, 2022 8:[address] [facility] [address] [place] [address] Hospitalist H&P Signed Patient: vEans Forte MR#: [id number] : 1970 Acct:[id number] Age/Sex: 52 / M Adm Date: 3 Loc: ER Room: Type: [facility] ER Attending Dr: Copies to: DO Delano Dhillon MD Michael R. Frings, ~ HPI DATE OF EXAMINATION: 11/04/22 CHIEF COMPLAINT: Abnormal labs HISTORY OF PRESENT ILLNESS: This patient is a 52-year-old male who presented to the emergency department earlier today with a chief complaint of abnormal labs at the recommendation of his warehouse receiving supervisor. He is in preparation for peritoneal dialysis [...] % (Auto) 12.4 % (.) 11/04/22 15:11 [place] % (Auto) 9.0 % (.) 11/04/22 15:11 Eos % (Auto) 2.7 % (.) 11/04/22 15:11 Baso % (Auto) 1.1 % (.) 11/04/22 15:11 Nucleat RBC Rel Count 0.0 /100 WBC (0-0.5) 11/04/22 15:11 Neut # (Auto) 9.1 x10E3/uL (1.8-7.7) H 11/04/22 15:11 Lymph # (Auto) 1.5 x10E3/uL (1.00-4.8) 11/04/22 15:11 [place] # (Auto) 1.1 x10E3/uL (0.0-0.8) H 11/04/22 [...] pH 5.5 (5.0-9.0) 11/04/22 14:04 Ur Specific [place] 1.013 (1.001-1.030) 11/04/22 14:04 Urine Protein [...] 0-8 /LPF (0-8) 11/04/22 14:04 Documented By: Tyesha Brewster DO 11/04/22 20 07 Signed By: <Electronically signed by Tyesha Brewster DO> 11/04/222010 [facility] Work Phone: 1(852) 424-811612-07-2022 Evaluation note* Encounter Date Diagnosis Assessment Notes [...] discussed with him the different option of [employer]ER including PD, 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 He is interested in PD. No need to initiate dialysis now. We will refer to the Dr. Allred once he needed to be initiated on PD. I have encouraged him to lose weight for kidney transplant. Continue follow with continues to [facility]. He is a suitable candidate [...] advised him to take low potassium diet. Aligo Other 10-18-2022 Hospital Discharge instructions Additional Instructions Your kidney function is within your usual range. There has been no significant worsening over the last few months. Your blood sugar is okay tonight. It was only 150 here. In terms of overall management, please call Dr. Ricketts tomorrow to discuss with her any changes in your insulin.[facility] Work Phone: 1(551) 294-408509-14-2022 Evaluation note* Encounter Date Diagnosis Assessment Notes [...] discussed with him the different option of PIP[employer]ER including PD, 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 He is interested in PD. No need to initiate dialysis now. We will refer to the Dr. Allred once he needed to be initiated on PD. I have encouraged him to lose weight for kidney transplant. Continue follow with continues to [facility]. May, Hypertensive chronic kidney disease [...] advised him to take low potassium diet. Aligo Other 07-07-2022 Evaluation note* Encounter Date Diagnosis [...] discussed with him the different option of [employer]ER including PD, 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 He is interested in PD. I have encouraged him to lose weight for kidney transplant. Continue follow with continues to [facility]. Mar, Hypertensive chronic kidney disease [...] advised him to take low potassium diet. Aligo Other 06-23-2022 NotePROCEDURE: XR FOOT RT MIN [...] Electronically authenticated by: VIRGINIA GARCIA Date: 2022-02-26 16:16[facility]03-30-2022 Evaluation note* Encounter Date Diagnosis [...] discussed with him the different option of PIP[employer]ER including PD, 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 He is interested in PD. I have encouraged him to lose weight for kidney transplant. Continue follow with continues to [facility]. Nov, Hypertensive chronic kidney disease [...] advised him to take low potassium diet. Aligo Other 12-16-2021 NoteHISTORY: Follow up prior CT, [...] and signed by Anibal Calle on 08/21/[address] [place] [address] SpecialistConsult note Author Flakito High [facility] November 05, 2022 12:31pm Note Date/Time November 05, 2022 12:[address] [facility] [address] [place] [address] General Surgery Consult Note Signed Patient: Evans Forte MR#: [id number] : 1970 Acct:[id number] Age/Sex: 52 / M Adm Date: 3 Loc: Room: [address] [place] [address] Type: ADM IN Attending Dr: Tyesha Brewster DO Copies to: DO Tyesha Dhillon DO Paul C Laffay, DO~ History of Present Illness Date of consult: 11/05/2022 Requesting/Attending Provider: Tyesha Brewster DO History of present illness: Patient has had worsening kidney function and it is gotten to the point where heneeds to start peritoneal dialysis. He is very motivated to do that instead of hemodialysis. He has talked his warehouse receiving supervisor about this. He is not having any [...] negative unless noted below or in HPI [facility] for [facility]?: Yes Medical History (Updated [...] Mg Tablet) 500 mg PO DAILY [facility] Stop: 11/05/23 08:59 Last Admin: 11/05/22 08:49 Dose: 500 mg Atorvastatin Calcium (Atorvastatin 20 Mg Tablet) 20 mg PO DAILY [facility] Stop: 11/05/23 08:59 Last Admin: 11/05/22 08:50 Dose: 20 mg Carvedilol (Carvedilol 25 Mg Tablet) 25 mg PO BID [facility] Stop: 11/04/23 20:59 Last Admin: 11/05/22 08:50 Dose: 25 mg Emollient Ointment (Petrolatum,White 99 Gm Oint...G.) 1 applic TOPICAL DAILY [facility] Stop: 11/05/23 09:59 Fenofibrate (Fenofibrate Nanocrystallized 145 Mg Tablet) 145 mg PO DAILY [facility] Stop: 11/05/23 08:59 Last Admin: 11/05/22 08:48 Dose: 145 mg Ferrous Sulfate (Ferrous Sulfate 324 Mg Tablet.) 324 mg PO DAILY [facility] Stop: 11/05/23 08:59 Last Admin: 11/05/22 08:52 Dose: 324 mg Folic Acid (Cyanocobalamin/Fa/Pyridoxine 1 Tab Tablet) 1 tab PO DAILY [facility] Stop: 11/05/23 08:59 Last Admin: 11/05/22 08:48 Dose: 1 tab Heparin Sodium (Porcine) (Heparin 5,000 Unit/Ml Vial) 5,000 unit SUBCUT Q8HR [facility] Stop: 11/05/23 13:59 Hydralazine HCl (Hydralazine 20 Mg/Ml Vial) 10 mg IV-PUSH Q4H PRN PRN Reason: if SBP > 185 Stop: 11/04/23 23:30 Last Admin: 11/04/22 23:40 Dose: 10 mg Hydralazine HCl (Hydralazine 50 Mg Tablet) 50 mg PO TID [facility] Stop: 11/05/23 05:59 Last Admin: 11/05/22 08:52 Dose: 50 mg Insulin Human Regular (Insulin Regular U-500, Human 1,500 Unit/3 Ml Insuln.Pen) 45 unit SUBCUT DAILY@1700 [facility] Stop: 11/05/23 16:59 Insulin Human Regular (Insulin Regular U-500, Human 1,500 Unit/3 Ml Insuln.Pen) 70 unit SUBCUT DAILY@0600 [facility] Stop: 11/05/23 05:59 Last Admin: 11/05/22 08:05 Dose: 70 unit Labetalol HCl (Labetalol 100 Mg/20 Ml Vial) 10 mg IV-PUSH Q10M PRN PRN Reason: Hypertension Stop: 11/04/23 16:31 Last Admin: 11/04/22 21:41 Dose: 10 mg Levothyroxine Sodium (Levothyroxine 100 Mcg Tablet) 100 mcg PO DAILY@0630 [facility] Stop: 11/05/23 06:29 Last Admin: 11/05/22 06:10 Dose: 100 mcg Nifedipine (Nifedipine Er.24hr 90 Mg Tab.Er.24) 90 mg PO DAILY [facility] Stop: 11/05/23 08:59 Last Admin: 11/05/22 08:52 Dose: 90 mg Pregabalin (Pregabalin 50 Mg Capsule) 50 mg PO DAILY VINCE Stop: 05/04/23 08:59 Last Admin: 11/05/22 08:52 Dose: 50 mg Sodium Bicarbonate (Sodium Bicarbonate 650 Mg Tablet) 650 mg PO BID [facility] Stop: 11/05/23 10:29 Last Admin: 11/05/22 12:03 [...] Units) Tablet) 50 mcg PO DAILY [facility] Stop: 11/05/23 08:59 Last Admin: 11/05/22 08:50 Dose: 50 mcg Zinc Gluconate (Zinc Gluconate 50 Mg Tablet) 50 mg PO DAILY [facility] Stop: 11/05/23 08:59 Last Admin: 11/05/22 08:52 [...] % (Auto) 72.3, Lymph % (Auto) 14.6, [place] % (Auto) 9.5, Eos % (Auto) 2.8, Baso % (Auto) 0.8, Nucleat RBC Rel Count 0.0, Neut # (Auto) 9.8 H, Lymph # (Auto) 2.0, [place] # (Auto) 1.3 H, Eos # (Auto) [...] % (Auto) 74.8, Lymph % (Auto) 12.4, [place] % (Auto) 9.0, Eos % (Auto) 2.7, Baso % (Auto) 1.1, Nucleat RBC Rel Count 0.0, Neut # (Auto) 9.1 H, Lymph # (Auto) 1.5, [place] # (Auto) 1.1 H, Eos # (Auto) 0.3, Baso # (Auto) 0.1, Monocyte Dist Width 17.32 11/04/22 14:04: Urine Color Yellow, Urine Appearance Clear, Urine pH 5.5, Ur Specific [place] 1.013, Urine Protein 300 H, Urine [...] signed by DO Flakito High> 11/05/22 1231 [facility] Work Phone: Consult note Author Yocasta Villalba [facility] November 05, 2022 2:39pm Note Date/Time November 05, 2022 2:[address] [facility] [address] [place] [address] Nephrology Consult Note Signed Patient: Evans Forte MR#: [id number] : 1970 Acct:[id number] Age/Sex: 52 / M Adm Date: 3 Loc: Room: [address] [place] [address] Type: ADM IN Attending Dr: Tyesha Brewster DO Copies to: DO Yocasta Dhillon MD Michael R. Frings, DO~ Providers Consult Date: 11/05/22 Requesting Provider: Tyesha Brewster DO Primary Care Provider: Idania Ricketts DO HPI Reason for Consult: Chronic kidney disease stage V History of Present Illness: This is a 52-year-old male patient with a past sickle history of chronic kidney disease stage V from diabetic nephropathy, hypertension, morbid obesity, anemia of renal disease, neuropathy. 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 hyperkalemia with potassium 5.9 [...] Mg Tablet) 500 mg PO DAILY [facility] Stop: 11/05/23 08:59 Last Admin: 11/05/22 08:49 Dose: 500 mg Atorvastatin Calcium (Atorvastatin 20 Mg Tablet) 20 mg PO DAILY VINCE Stop: 11/05/23 08:59 Last Admin: 11/05/22 08:50 Dose: 20 mg Carvedilol (Carvedilol 25 Mg Tablet) 25 mg PO BID [facility]INCE Stop: 11/04/23 20:59 Last Admin: 11/05/22 08:50 Dose: 25 mg Emollient Ointment (Petrolatum,White 99 Gm Oint...G.) 1 applic TOPICAL DAILY [facility] Stop: 11/05/23 09:59 Fenofibrate (Fenofibrate Nanocrystallized 145 Mg Tablet) 145 mg PO DAILY VINCE Stop: 11/05/23 08:59 Last Admin: 11/05/22 08:48 Dose: 145 mg Ferrous Sulfate (Ferrous Sulfate 324 Mg Tablet.) 324 mg PO DAILY [facility] Stop: 11/05/23 08:59 Last Admin: 11/05/22 08:52 Dose: 324 mg Folic Acid (Cyanocobalamin/Fa/Pyridoxine 1 Tab Tablet) 1 tab PO DAILY [facility] Stop: 11/05/23 08:59 Last Admin: 11/05/22 08:48 Dose: 1 tab Heparin Sodium (Porcine) (Heparin 5,000 Unit/Ml Vial) 5,000 unit SUBCUT Q8HR [facility] Stop: 11/05/23 13:59 Hydralazine HCl (Hydralazine 20 Mg/Ml Vial) 10 mg IV-PUSH Q4H PRN PRN Reason: if SBP > 185 Stop: 11/04/23 23:30 Last Admin: 11/04/22 23:40 Dose: 10 mg Hydralazine HCl (Hydralazine 50 Mg Tablet) 50 mg PO TID [facility] Stop: 11/05/23 05:59 Last Admin: 11/05/22 08:52 Dose: 50 mg Insulin Human Regular (Insulin Regular U-500, Human 1,500 Unit/3 Ml Insuln.Pen) 45 unit SUBCUT DAILY@1700 [facility] Stop: 11/05/23 16:59 Insulin Human Regular (Insulin Regular U-500, Human 1,500 Unit/3 Ml Insuln.Pen) 70 unit SUBCUT DAILY@0600 [facility] Stop: 11/05/23 05:59 Last Admin: 11/05/22 08:05 Dose: 70 unit Labetalol HCl (Labetalol 100 Mg/20 Ml Vial) 10 mg IV-PUSH Q10M PRN PRN Reason: Hypertension Stop: 11/04/23 16:31 Last Admin: 11/04/22 21:41 Dose: 10 mg Levothyroxine Sodium (Levothyroxine 100 Mcg Tablet) 100 mcg PO DAILY@0630 [facility] Stop: 11/05/23 06:29 Last Admin: 11/05/22 06:10 Dose: 100 mcg Nifedipine (Nifedipine Er.24hr 90 Mg Tab.Er.24) 90 mg PO DAILY [facility] Stop: 11/05/23 08:59 Last Admin: 11/05/22 08:52 Dose: 90 mg Pregabalin (Pregabalin 50 Mg Capsule) 50 mg PO DAILY [facility] Stop: 05/04/23 08:59 Last Admin: 11/05/22 08:52 Dose: 50 mg Sodium Bicarbonate (Sodium Bicarbonate 650 Mg Tablet) 650 mg PO BID [facility] Stop: 11/05/23 10:29 Last Admin: 11/05/22 12:03 Dose: 650 mg Sodium Chloride (Sodium Chloride 0.9 % 10 Ml Syringe) 0 ml IV-PUSH PRN PRN PRN Reason: Flush Stop: 11/04/23 13:53 Vitamin A (Vitamin A 3,000 Mcg (10,000 Units) Capsule) 3,000 mcg PO DAILY [facility] Stop: 11/05/23 08:59 Last Admin: 11/05/22 08:52 Dose: 3,000 mcg Vitamin D (Cholecalciferol 25 Mcg (1,000 Units) Tablet) 50 mcg PO DAILY [facility] Stop: 11/05/23 08:59 Last Admin: 11/05/22 08:50 Dose: 50 mcg Zinc Gluconate (Zinc Gluconate 50 Mg Tablet) 50 mg PO DAILY [facility] Stop: 11/05/23 08:59 Last Admin: 11/05/22 08:52 [...] Escudero Jr., D.O.11/04/2022 3:50 PM Dictation Location: [place] [address] Any impression(s) listed above is documentation that [...] signed by Yocasta Villalba MD> 11/05/22 1439 [facility] Work Phone: Consult note Author Yocasta Villalba [facility] November 21, 2023 10:16am Note Date/Time November 21, 2023 10: 16am [facility] [address] [place] [address] Nephrology Consult Note Signed Patient: Evans Forte MR#: [id number] : 1970 Acct:[id number] Age/Sex: 53 / M Adm Date: 4 Loc: Room: [address] [place] [address] Type: ADM IN Attending Dr: Arnol Calloway [...] renal disease on TTS hemodialysis schedule at [facility], insulin-dependent diabetes mellitus, obstructive sleep [...] systems: 12 system review is negative today [facility] Medical History (Updated 11/21/23 @ 10:12 by [...] 2 Surgical History [place] [facility] [place] of orthopedic surgery right foot has [...] Mg Tablet) 1 mg PO QAM [facility] Stop: 11/20/24 08:59 Last Admin: 11/21/23 08:00 Dose: 1 mg Atorvastatin Calcium (Atorvastatin 20 Mg Tablet) 20 mg PO QAM [facility] Stop: 11/20/24 08:59 Last Admin: 11/21/23 08:00 Dose: 20 mg Calcitriol (Calcitriol 0.25 Mcg Capsule) 0.25 mcg PO TuThSa@0900 [facility] Stop: 11/22/24 08:59 Calcium Acetate (Calcium Acetate 667 Mg Capsule) 2,668 mg PO AC [facility] Stop: 11/20/24 07:29 Last Admin: 11/21/23 07:54 Dose: 2,668 mg Cyanocobalamin (Cyanocobalamin 1,000 Mcg Tablet) 1,000 mcg PO DAILY [facility] Stop: 11/20/24 08:59 Last Admin: 11/21/23 08:00 Dose: 1,000 mcg Heparin Sodium (Porcine) (Heparin 5,000 Unit/Ml Vial) 5,000 unit SUBCUT Q12HR [facility] Stop: 11/20/24 08:59 Last Admin: 11/21/23 08:00 Dose: 5,000 unit Linezolid (Zyvox) 600 mg in 300 mls @ 300 mls/hr IV Q12H [facility] Last Admin: 11/21/23 09:06 Dose: 300 mls/hr Ceftriaxone Sodium (Rocephin) 2 gm in 50 mls @ 100 mls/hr IV Q24H [facility] Insulin Human Regular (Insulin Regular U-500, Human 1,500 Unit/3 Ml Insuln.Pen) 50 unit SUBCUT BID [facility] Stop: 11/20/24 08:59 Last Admin: 11/21/23 08:00 Dose: 50 unit Levothyroxine Sodium (Levothyroxine 100 Mcg Tablet) 100 mcg PO DAILY.0630 [facility] Stop: 11/20/24 06:29 Last Admin: 11/21/23 05:39 [...] In Packet 1 packet TRANSDERML DAILY [facility] Stop: 11/20/24 08:59 Tirzepatide [ Mounjaro] 5 Mg/0.5 Ml Pen Injector 5 mg SUBCUT Tu@0900 [facility] Stop: 11/29/24 08:59 Ondansetron HCl (Ondansetron 4 Mg/2 Ml Vial) 4 mg IV-PUSH Q8H PRN PRN Reason: Nausea And Vomiting Stop: 11/19/24 21:02 Pregabalin (Pregabalin 150 Mg Capsule) 150 mg PO BID [facility] Stop: 05/19/24 08:59 Last Admin: 11/21/23 08:00 [...] Taqueria Reese M.D.11/21/2023 8:08 AM Dictation Location: [place] [address] Any impression(s) listed above is documentation that [...] diabetic nephropathy. Patient has been going to [facility] on TTS for hemodialysis. Last [...] signed by Yocasta Villalba MD> 11/21/23 1016 [facility] Work Phone: Consult note Author Tyesha Hernández [facility] November 22, 2023 11:26am Note Date/Time November 22, 2023 11: 26am [facility] [address] [place] [address] Infect. Disease Consult Note Signed Patient: Evans Forte MR#: [id number] : 1970 Acct:[id number] Age/Sex: 53 / M Adm Date: 4 Loc: Room: [address] [place] [address] Type: ADM IN Attending Dr: Amy Escudero DO Copies to: DO Tyesha Dhillon MD Yazid Hussein, DO~ HPI Data [...] negative unless noted below or in HPI [facility] Medical History (Updated 11/22/23 @ 11:24 by Tyesha Hernández MD) Hypertension Hyperlipidemia End stage renal disease Dependence on renal dialysis Anemia Insulin long-term use Chronic kidney disease, stage 4 (severe) Sleep apnea no machine Pancreatitis Hypothyroid Hyperlipidemia Anemia Dependence on renal dialysis End stage renal disease PD catheter dysfunction Cellulitis Hypertension Neuropathy slim feet-tingling Renal insufficiency Diabetes mellitus, type 2 Surgical History History [place] cardiac [place] [facility] [place] of orthopedic surgery right foot has [...] (Anastrozole 1 Mg Tablet) [facility] [place] Stop: 11/20/24 08:59 Last Admin: 11/22/23 08:14 Dose: 1 mg Atorvastatin Calcium (Atorvastatin 20 Mg Tablet) 20 mg PO QAM [facility] Stop: 11/20/24 08:59 Last Admin: 11/22/23 08:13 Dose: 20 mg Calcitriol (Calcitriol 0.25 Mcg Capsule) 0.25 mcg PO TuThSa@0900 [facility] Stop: 11/22/24 08:59 Calcium Acetate (Calcium Acetate 667 Mg Capsule) 2,668 mg PO AC [facility] Stop: 11/20/24 07:29 Last Admin: 11/22/23 08:13 Dose: 2,668 mg Cyanocobalamin (Cyanocobalamin 1,000 Mcg Tablet) 1,000 mcg PO DAILY [facility] Stop: 11/20/24 08:59 Last Admin: 11/22/23 08:13 Dose: 1,000 mcg Heparin Sodium (Porcine) (Heparin 5,000 Unit/Ml Vial) 5,000 unit SUBCUT Q12HR [facility] Stop: 11/20/24 08:59 Last Admin: 11/22/23 08:14 Dose: 5,000 unit Linezolid (Zyvox) 600 mg in 300 mls @ 300 mls/hr IV Q12H [facility] Last Admin: 11/22/23 08:58 Dose: 300 mls/hr Ceftriaxone Sodium (Rocephin) 2 gm in 50 mls @ 100 mls/hr IV Q24H [facility] Last Admin: 11/21/23 19:41 Dose: 100 mls/hr Insulin Aspart (Insulin Aspart 300 Units/3 Ml Insuln.Pen) 0 units SUBCUT [facility]; Protocol Stop: 11/20/24 16:29 Last Admin: 11/22/23 08:13 Dose: Not Given Insulin Human Regular (Insulin Regular U-500, Human 1,500 Unit/3 Ml Insuln.Pen) 50 unit SUBCUT BID [facility] Stop: 11/20/24 08:59 Last Admin: 11/22/23 08:16 Dose: 50 unit Levothyroxine Sodium (Levothyroxine 100 Mcg Tablet) 100 mcg PO DAILY.0630 [facility] Stop: 11/20/24 06:29 Last Admin: 11/22/23 05:29 [...] In Packet 1 packet TRANSDERML DAILY [facility] Stop: 11/20/24 08:59 Last Admin: 11/21/23 10:14 Dose: Not Given Tirzepatide [ Mounjaro] 5 Mg/0.5 Ml Pen Injector 5 mg SUBCUT Tu@0900 [facility] Stop: 11/29/24 08:59 Ondansetron HCl (Ondansetron 4 Mg/2 Ml Vial) 4 mg IV-PUSH Q8H PRN PRN Reason: Nausea And Vomiting Stop: 11/19/24 21:02 Pregabalin (Pregabalin 150 Mg Capsule) 150 mg PO BID [facility] Stop: 05/19/24 08:59 Last Admin: 11/22/23 08:14 [...] @ 300 mls/hr IV Q12H [facility] Rx# :[id number] Output: Urine 100 / 100 Other: # [...] Linezolid and ceftriaxone to continue. Documented By: Tyesha Hernández MD 11/22/23 1117 Signed By: <Electronically signed by MD Tyesha Hernández> 11/22/23 1126 [facility] Work Phone: Consult note Author Gi Mondragon [facility] November 23, 2023 3:51pm Note Date/Time November 22, 2023 5:[address] [facility] [address] [place] [address] Podiatry Consult Note Signed Patient: Evans Forte MR#: [id number] : 1970 Acct:[id number] Age/Sex: 53 / M Adm Date: 4 Loc: Room: [address] [place] [address] Type: ADM IN Attending Dr: Amy Escudero [...] heel. He has been following with a head swamper and family. Patient states that the ulcerations [...] negative unless noted below or in HPI [facility] Medical History (Updated 11/23/23 @ 10:16 by [...] 2 Surgical History History of cardiac [place] [facility] [place] right foot has [...] By: <Electronically signed by TIARA Mondragon> 11/23/23 1557 [facility] Work Phone: Discharge summary Author Tyesha Brewster [facility] November 07, 2022 4:43pm Note Date/Time November 07, 2022 4:[address] [facility] [address] [place] [address] Discharge Summary Signed Patient: Evans Forte MR#: [id number] : 1970 Acct:[id number] Age/Sex: 52 / M Adm Date: 3 Loc: Room: [address] [place] [address]: Tyesha Brewster DO Copies to: DO Tyesha Dhillon, DO~ Providers Date of Discharge: 11/07/22 Discharging Provider: Tyesha Brewster Primary Care Provider: Idania Ricketts Consults: [...] Catheter Dialysis Insert Laparoscopic(Not Applicable) - Flakito High DO Diagnostic Studies Completed and Pending Studies [...] % (Auto) 87.5, Lymph % (Auto) 5.8, [place] % (Auto) 6.5, Eos % (Auto) 0.1, Baso % (Auto) 0.1, Nucleat RBC Rel Count 0.1, Neut # (Auto) 10.9 H, Lymph # (Auto) 0.7 L, [place] # (Auto) 0.8, Eos # (Auto) 0.0, [...] a prescription was provided. 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 11/12/22 at 10:30am 11/20/22 at 10:30am) Flakito High DO [Active Staff - D.O.] - (Call office on Wednesday to schedule follow-up with Dr. High) Idania Ricketts DO [Primary Care Provider] - 11/16/22 10:00 am (Follow-up withyour Primary Care Provider, call office to reschedule if needed. ) Documented By: Tyesha Brewster DO 11/07/22 16 39 Signed By: <Electronically signed by Tyesha Brewster DO> 11/07/22 1643 [facility] Work Phone: Discharge summary Author Amy Escudero [facility] November 24, 2023 1:40pm Note Date/Time November 23, 2023 5:[address] [facility] [address] [place] [address] Discharge Summary Signed Patient: Evans Forte MR#: [id number] : 1970 Acct:[id number] Age/Sex: 53 / M Adm Date: 4 Loc: Room: [address] [place] [address]: Amy Escudero DO Copies to: [...] to Infectious Diseases Routine Comment: Consulting Provider: yTesha Hernández Reason For Exam: sepsis, foot wounds, [...] history of hypertension, hyperlipidemia, ESRD on dialysis T-Th-, diabetic and insulin-dependent, GUSTAVO,and neuropathy, chronic right [...] wound care and will follow-up with his head swamper and primary care physician outpatient. Time Spent [...] % (Auto) 63.3, Lymph % (Auto) 20.6, [place] % (Auto) 9.8, Eos % (Auto) 5.6, Baso % (Auto) 0.7, Nucleat RBC Rel Count 0.0, Neut # (Auto) 4.9, Lymph # (Auto) 1.6, [place] # (Auto) 0.8, Eos # (Auto) 0.4, [...] to schedule an appointment with your established [facility] Picker. HOME HEALTH TO MANAGE: Nursing to eval [...] signed by Amy Escudero DO> 11/24/23 1340 [facility] Work Phone: Evaluation + Plan note No data available for this section [facility] Evaluation noteNo InformationNort [employer] Other Evaluation noteNo assessment information available [facility] Work Phone: Evaluation note* Diagnosis Onset Date Resolution Status Acute hyperkalemia acute Chronic kidney disease acute Hypertension acute [facility] Work Phone: Evaluation note* Diagnosis Onset Date Resolution Status Acute hyperkalemia acute Acute kidney injury superimposed on CKD acute Chronic kidney disease acute CKD (chronic kidney disease) stage 5, GFR less than 15 ml/min acute Hyperkalemia acute Hypertension acute Insulin dependent diabetes mellitus acute Metabolic acidosis acute [id number] chronic [id number] chronic [facility] Work Phone: evaluation note* Diagnosis Onset Date Resolution Status [id number] chronic [facility] Work Phone: Evaluation note* Diagnosis Peritoneal dialysis catheter dysfunction, subsequent encounter ([facility])- Primary [facility] Diagnosis Onset Date Resolution Status [id number] chronic Dependence on renal dialysis acute [facility] Work Phone: Evaluation note* Diagnosis Onset Date Resolution Status Anemia of renal disease acut e Benign hypertension with end-stage renal disease acute Diabetes acute [id number] acute [id number] acute Edema of right lower extremity acute End stage renal disease acut e Fever acute Hyperparathyroidism acute Hypertension acute Hypomagnesemia acute Insulin dependent diabetes mellitus acute Sepsis acute SIRS (systemic inflammatory response syndrome) acute Type 2 diabetes mellitus wit h diabetic chronic kidney disease acute Ulcer of right foot acute Ulcer of right heel acute Vomiting acute Wound of right foot acute [facility] Work Phone: Evaluation note* Diagnosis Onset Date Resolution Status Edema of right lower extremity acute Fever resolved Hypomagnesemia resolved Sepsis resolved SIRS (systemic inflammatory response syndrome) resolved Vomiting resolved [facility] Work Phone: Evaluation note* Diagnosis Onset Date Resolution Status Edema of right lower extremity acute Fever resolved Hypomagnesemia resolved Sepsis resolved SIRS (systemic inflammatory response syndrome) resolved Vomiting resolved AV fistula acute End stage renal disease acut e ESRD on hemodialysis acute [facility] Work Phone: Evaluation note* Diagnosis Onset Date Resolution Status Benign hypertension with end-stage renal disease acute Edema of right lower extremity acute Type 2 diabetes mellitus wit h diabetic chronic kidney disease acute Fever resolved Hypomagnesemia resolved Sepsis resolved SIRS (systemic inflammatory response syndrome) resolved Vomiting resolved AV fistula acute End stage renal disease acut e ESRD on hemodialysis acute [facility] Work Phone: Evaluation note* Diagnosis Onset [...] ESRD on hemodialysis acute ESRD on hemodialysis [facility] Work Phone: Evaluation note* Diagnosis Ulcer of right heel and midfoot with fat layer exposed ([facility])- Primary Type 2 diabetes mellitus with peripheral neuropathy ([facility]) Neuropathy Mononeuritis of unspecified site [facility] Diagnosis Obstructive sleep apnea syndrome- Primary Obstructive sleep apnea (adult) (pediatric) Type 2 diabetes with nephropathy ([facility]/HCC) Type 2 diabetes mellitus with peripheral neuropathy ([facility]) 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, with long-term current use of insulin ([facility]) Long-term insulin use ([facility]) 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 ([facility]) Essential hypertension ([facility]/HCC) Unspecified essential hypertension Peripheral vascular disease ([facility]/HCC) Unspecified peripheral vascular disease End stage renal disease ([facility]/HCC) End stage renal disease Type 2 diabetes mellitus with ESRD (end-stage renal disease) ([facility]) Acquired hypothyroidism ([facility]) Unspecified hypothyroidism Dependence on renal dialysis ([facility]) Renal dialysis status Pure hypercholesterolemia (CMS/HCC) Pure hypercholesterolemia Chronic maxillary sinusitis Class 3 severe obesity due to excess calories with serious comorbidity and body mass index (BMI) of 45.0 to 49.9 in adult ([facility]) Adrenal nodule ([facility]) Benign neoplasm of adrenal gland Anxiety Anxiety state, unspecified Hx of amputation of lesser toe, left (HCC) ([facility]) Obstructive sleep apnea syndrome- Primary Obstructive sleep apnea (adult) (pediatric) Primary insomnia Persistent disorder of initiating or maintaining sleep 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 ([facility]) Type 2 diabetes mellitus with peripheral neuropathy ([facility] Essential hypertension ([facility] Unspecified essential hypertension Peripheral vascular disease ([facility]) Unspecified peripheral vascular disease End stage renal disease ([facility]) End stage renal disease Acquired hypothyroidism ([facility]) Unspecified hypothyroidism Type 2 diabetes mellitus with ESRD (end-stage renal disease) ([facility]) 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, with long-term current use of insulin ([facility]) Chronic kidney disease with end stage renal disease on dialysis due to type 2 diabetes mellitus ([facility]) Dependence on renal dialysis ([facility]) Renal dialysis status Anxiety Anxiety state, unspecified Pure hypercholesterolemia ([facility]) Pure hypercholesterolemia Long-term insulin use ([facility]) Hx of amputation of lesser toe, left (HCC) ([facility]) Other iron deficiency anemia 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 classified elsewhere ([facility]) Non-pressure chronic ulcer of other part of right foot with unspecified severity ([facility]) Type 2 diabetes mellitus with foot ulcer, with long-term current use of insulin ([facility]) Class 3 severe obesity due to excess calories with serious comorbidity and body mass index (BMI) of 40.0 to 44.9 in adult ([facility]) Type 2 diabetes mellitus with peripheral neuropathy ([facility])- Primary Anxiety Anxiety state, unspecified Ulcer of right heel and midfoot with fat layer exposed ([facility])- Primary Ulcer of right foot, limited to breakdown of skin ([facility]) Type 2 diabetes mellitus with peripheral neuropathy ([facility]) Neuropathy Mononeuritis of unspecified site Type 2 diabetes mellitus with foot ulcer, with long-term current use of insulin ([facility]) [facility] Diagnosis Obstructive sleep apnea syndrome- Primary Obstructive sleep apnea (adult) (pediatric) Type 2 diabetes with nephropathy (CMS/HCC) Type 2 diabetes mellitus with peripheral neuropathy ([facility]/HCC) 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, with long-term current use of insulin (CMS/HCC) Long-term insulin use ([facility]) 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 (CMS/HCC) Essential hypertension (CMS/HCC) Unspecified essential hypertension Peripheral vascular disease (CMS/HCC) Unspecified peripheral vascular disease End stage renal disease (CMS/HCC) End stage renal disease Type 2 diabetes mellitus with ESRD (end-stage renal disease) (CMS/HCC) Acquired hypothyroidism (CMS/HCC) Unspecified hypothyroidism Dependence on renal dialysis (CMS/[facility]) Renal dialysis status Pure hypercholesterolemia (CMS/HCC) Pure hypercholesterolemia Chronic maxillary sinusitis Class 3 severe obesity due to excess calories with serious comorbidity and body mass index (BMI) of 45.0 to 49.9 in adult (CMS/[facility]) Adrenal nodule (CMS/[facility]) Benign neoplasm of adrenal gland Anxiety Anxiety state, unspecified Hx of amputation of lesser toe, left (HCC) ([facility]) Obstructive sleep apnea syndrome- Primary Obstructive sleep apnea (adult) (pediatric) Primary insomnia Persistent disorder of initiating or maintaining sleep 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 (CMS/HCC) Type 2 diabetes mellitus with peripheral neuropathy (CMS/HCC) Essential hypertension (CMS/HCC) Unspecified essential hypertension Peripheral vascular disease (CMS/HCC) Unspecified peripheral vascular disease End stage renal disease (CMS/[facility]) End stage renal disease Acquired hypothyroidism ([facility]) Unspecified hypothyroidism Type 2 diabetes mellitus with ESRD (end-stage renal disease) ([facility]) 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, with long-term current use of insulin (CMS/HCC) Chronic kidney disease with end stage renal disease on dialysis due to type 2 diabetes mellitus (CMS/HCC) Dependence on renal dialysis ([facility]) Renal dialysis status Anxiety Anxiety state, unspecified Pure hypercholesterolemia (CMS/HCC) Pure hypercholesterolemia Long-term insulin use ([facility]) Hx of amputation of lesser toe, left (HCC) ([facility]) Other iron deficiency anemia 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 classified elsewhere ([facility]) Non-pressure chronic ulcer of other part of right foot with unspecified severity ([facility]) Type 2 diabetes mellitus with foot ulcer, with long-term current use of insulin ([facility]) Class 3 severe obesity due to excess calories with serious comorbidity and body mass index (BMI) of 40.0 to 44.9 in adult ([facility]) Type 2 diabetes mellitus with peripheral neuropathy ([facility])- Primary Anxiety Anxiety state, unspecified Obstructive sleep apnea syndrome- Primary Obstructive sleep apnea (adult) (pediatric) 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 ([facility]) Type 2 diabetes mellitus with peripheral neuropathy ([facility] Essential hypertension ([facility] Unspecified essential hypertension Peripheral vascular disease ([facility]) Unspecified peripheral vascular disease End stage renal disease ([facility]) End stage renal disease Acquired hypothyroidism ([facility]) Unspecified hypothyroidism Type 2 diabetes mellitus with ESRD (end-stage renal disease) ([facility]) 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, with long-term current use of insulin ([facility]) Chronic kidney disease with end stage renal disease on dialysis due to type 2 diabetes mellitus ([facility]) Anxiety Anxiety state, unspecified Dependence on renal dialysis ([facility]) Renal dialysis status Pure hypercholesterolemia ([facility]) Pure hypercholesterolemia Long-term insulin use ([facility]) Hx of amputation of lesser toe, left ([facility]) ([facility]) Class 3 severe obesity due to excess calories with serious comorbidity and body mass index (BMI) of 40.0 to 44.9 in adult ([facility]) Inguinal adenopathy Enlargement of lymph nodes [facility] Diagnosis Ulcer of right heel and midfoot with fat layer exposed ([facility])- Primary Neuropathy Mononeuritis of unspecified site Ulcer of right foot, limited to breakdown of skin ([facility]) Type 2 diabetes mellitus with peripheral neuropathy ([facility]) documented [facility]* Diagnosis 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 ([facility]) documented [facility]* Diagnosis Ulcer of right heel and midfoot with fat layer exposed ([facility])- Primary Ulcer of right foot, limited to breakdown of skin ([facility]) documented [facility]* Diagnosis Type 2 diabetes mellitus with peripheral neuropathy ([facility])- Primary Anxiety Anxiety state, unspecified documented in this encounter [facility]* Diagnosis Neuropathy- Primary Mononeuritis of unspecified site Type 2 diabetes mellitus with peripheral neuropathy ([facility]/HCC) documented in this encounter [facility]Evaluation note* Diagnosis Obstructive sleep apnea syndrome- Primary Obstructive sleep apnea (adult) (pediatric) Type 2 diabetes with nephropathy (CMS/HCC) Type 2 diabetes mellitus with peripheral neuropathy ([facility]) 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, with long-term current use of insulin ([facility]/HCC) Long-term insulin use ([facility]) 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 ([facility] Essential hypertension ([facility]) Unspecified essential hypertension Peripheral vascular disease ([facility] Unspecified peripheral vascular disease End stage renal disease ([facility]) End stage renal disease Type 2 diabetes mellitus with ESRD (end-stage renal disease) ([facility] Acquired hypothyroidism ([facility]) Unspecified hypothyroidism Dependence on renal dialysis ([facility]) Renal dialysis status Pure hypercholesterolemia ([facility]) Pure hypercholesterolemia Chronic maxillary sinusitis Class 3 severe obesity due to excess calories with serious comorbidity and body mass index (BMI) of 45.0 to 49.9 in adult ([facility]) Adrenal nodule ([facility]) Benign neoplasm of adrenal gland Anxiety Anxiety state, unspecified Hx of amputation of lesser toe, left ([facility]) ([facility]) Obstructive sleep apnea syndrome- Primary Obstructive sleep apnea (adult) (pediatric) Primary insomnia Persistent disorder of initiating or maintaining sleep 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 ([facility]) Type 2 diabetes mellitus with peripheral neuropathy ([facility]/HCC) Essential hypertension ([facility]/HCC) Unspecified essential hypertension Peripheral vascular disease ([facility]) Unspecified peripheral vascular disease End stage renal disease (CMS/[facility]) End stage renal disease Acquired hypothyroidism ([facility]) Unspecified hypothyroidism Type 2 diabetes mellitus with ESRD (end-stage renal disease) ([facility]) 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, with long-term current use of insulin ([facility]) Chronic kidney disease with end stage renal disease on dialysis due to type 2 diabetes mellitus (CMS/[facility]) Dependence on renal dialysis ([facility]) Renal dialysis status Anxiety Anxiety state, unspecified Pure hypercholesterolemia (CMS/HCC) Pure hypercholesterolemia Long-term insulin use ([facility]) Hx of amputation of lesser toe, left (HCC) ([facility]) Other iron deficiency anemia 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 classified elsewhere ([facility]) Non-pressure chronic ulcer of other part of right foot with unspecified severity ([facility]) Type 2 diabetes mellitus with foot ulcer, with long-term current use of insulin ([facility]) Class 3 severe obesity due to excess calories with serious comorbidity and body mass index (BMI) of 40.0 to 44.9 in adult ([facility]) Type 2 diabetes mellitus with peripheral neuropathy ([facility])- Primary Anxiety Anxiety state, unspecified Obstructive sleep apnea syndrome- Primary Obstructive sleep apnea (adult) (pediatric) 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 ([facility]) Type 2 diabetes mellitus with peripheral neuropathy ([facility] Essential hypertension ([facility]) Unspecified essential hypertension Peripheral vascular disease ([facility]) Unspecified peripheral vascular disease End stage renal disease ([facility]) End stage renal disease Acquired hypothyroidism ([facility]) Unspecified hypothyroidism Type 2 diabetes mellitus with ESRD (end-stage renal disease) ([facility]) 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, with long-term current use of insulin ([facility]) Chronic kidney disease with end stage renal disease on dialysis due to type 2 diabetes mellitus ([facility] [facility]) Anxiety Anxiety state, unspecified Dependence on renal dialysis ([facility]) Renal dialysis status Pure hypercholesterolemia ([facility]) Pure hypercholesterolemia Long-term insulin use ([facility]) Hx of amputation of lesser toe, left (HCC) ([facility]) Class 3 severe obesity due to excess calories with serious comorbidity and body mass index (BMI) of 40.0 to 44.9 in adult ([facility]) Inguinal adenopathy Enlargement of lymph nodes Chronic venous insufficiency- Primary Unspecified venous (peripheral) insufficiency Lymphedema Other noninfectious lymphedema documented in this encounter [facility]* Diagnosis Obstructive sleep apnea syndrome- Primary Obstructive sleep apnea (adult) (pediatric) Type 2 diabetes with nephropathy ([facility]) Type 2 diabetes mellitus with peripheral neuropathy ([facility]) 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, with long-term current use of insulin ([facility]) Long-term insulin use ([facility] 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 ([facility] Essential hypertension ([facility]) Unspecified essential hypertension Peripheral vascular disease ([facility] Unspecified peripheral vascular disease End stage renal disease ([facility]) End stage renal disease Type 2 diabetes mellitus with ESRD (end-stage renal disease) ([facility] Acquired hypothyroidism ([facility]) Unspecified hypothyroidism Dependence on renal dialysis ([facility]) Renal dialysis status Pure hypercholesterolemia ([facility]) Pure hypercholesterolemia Chronic maxillary sinusitis Class 3 severe obesity due to excess calories with serious comorbidity and body mass index (BMI) of 45.0 to 49.9 in adult ([facility]) Adrenal nodule ([facility]) Benign neoplasm of adrenal gland Anxiety Anxiety state, unspecified Hx of amputation of lesser toe, left (HCC) ([facility]) Obstructive sleep apnea syndrome- Primary Obstructive sleep apnea (adult) (pediatric) Primary insomnia Persistent disorder of initiating or maintaining sleep 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 ([facility]) Type 2 diabetes mellitus with peripheral neuropathy ([facility] Essential hypertension ([facility] Unspecified essential hypertension Peripheral vascular disease ([facility]) Unspecified peripheral vascular disease End stage renal disease ([facility] End stage renal disease Acquired hypothyroidism ([facility]) Unspecified hypothyroidism Type 2 diabetes mellitus with ESRD (end-stage renal disease) ([facility]) 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, with long-term current use of insulin ([facility]) Chronic kidney disease with end stage renal disease on dialysis due to type 2 diabetes mellitus ([facility]) Dependence on renal dialysis ([facility]) Renal dialysis status Anxiety Anxiety state, unspecified Pure hypercholesterolemia ([facility]) Pure hypercholesterolemia Long-term insulin use ([facility]) Hx of amputation of lesser toe, left (HCC) ([facility]) Other iron deficiency anemia 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 classified elsewhere ([facility]) Non-pressure chronic ulcer of other part of right foot with unspecified severity ([facility]) Type 2 diabetes mellitus with foot ulcer, with long-term current use of insulin ([facility]) Class 3 severe obesity due to excess calories with serious comorbidity and body mass index (BMI) of 40.0 to 44.9 in adult ([facility]) Type 2 diabetes mellitus with peripheral [...] diabetes mellitus with ESRD (end-stage renal disease) ([facility]) 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, with long-term current use of insulin ([facility]) Chronic kidney disease with end stage renal disease on dialysis due to type 2 diabetes mellitus ([facility]) Anxiety Anxiety state, unspecified Dependence on renal dialysis ([facility]) Renal dialysis status Pure hypercholesterolemia (CMS/HCC) Pure hypercholesterolemia Long-term insulin use ([facility]) Hx of amputation of lesser toe, left ([facility]) ([facility]) Class 3 severe obesity due to excess calories with serious comorbidity and body mass index (BMI) of 40.0 to 44.9 in adult ([facility]) Inguinal adenopathy Enlargement of lymph nodes Ulcer of right heel and midfoot with fat layer exposed ([facility])- Primary Ulcer of right foot, limited to breakdown of skin ([facility]) Type 2 diabetes mellitus with peripheral neuropathy ([facility]) Neuropathy Mononeuritis of unspecified site documented in this encounter [facility] HealthcareEvaluation note* Diagnosis Obstructive sleep apnea syndrome- Primary Obstructive sleep apnea (adult) (pediatric) Type 2 diabetes with nephropathy (CMS/HCC) Type 2 diabetes mellitus with peripheral neuropathy ([facility]) 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, with long-term current use of insulin (CMS/HCC) Long-term insulin use ([facility]) 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 (CMS/HCC) Essential hypertension (CMS/HCC) Unspecified essential hypertension Peripheral vascular disease ([facility]) Unspecified peripheral vascular disease End stage renal disease (CMS/HCC) End stage renal disease Type 2 diabetes mellitus with ESRD (end-stage renal disease) ([facility]) Acquired hypothyroidism (CMS/[facility] Unspecified hypothyroidism Dependence on renal dialysis (CMS/[facility]) Renal dialysis status Pure hypercholesterolemia ([facility]) Pure hypercholesterolemia Chronic maxillary sinusitis Class 3 severe obesity due to excess calories with serious comorbidity and body mass index (BMI) of 45.0 to 49.9 in adult ([facility]) Adrenal nodule ([facility]) Benign neoplasm of adrenal gland Anxiety Anxiety state, unspecified Hx of amputation of lesser toe, left (HCC) ([facility]) Obstructive sleep apnea syndrome- Primary Obstructive sleep apnea (adult) (pediatric) Primary insomnia Persistent disorder of initiating or maintaining sleep 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 ([facility]) Type 2 diabetes mellitus with peripheral neuropathy ([facility] Essential hypertension ([facility] Unspecified essential hypertension Peripheral vascular disease ([facility] Unspecified peripheral vascular disease End stage renal disease ([facility]) End stage renal disease Acquired hypothyroidism ([facility]) Unspecified hypothyroidism Type 2 diabetes mellitus with ESRD (end-stage renal disease) ([facility]) 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, with long-term current use of insulin ([facility]) Chronic kidney disease with end stage renal disease on dialysis due to type 2 diabetes mellitus ([facility]) Dependence on renal dialysis ([facility]) Renal dialysis status Anxiety Anxiety state, unspecified Pure hypercholesterolemia ([facility]) Pure hypercholesterolemia Long-term insulin use ([facility]) Hx of amputation of lesser toe, left (HCC) ([facility]) Other iron deficiency anemia 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 classified elsewhere ([facility]) Non-pressure chronic ulcer of other part of right foot with unspecified severity ([facility]) Type 2 diabetes mellitus with foot ulcer, with long-term current use of insulin ([facility]) Class 3 severe obesity due to excess calories with serious comorbidity and body mass index (BMI) of 40.0 to 44.9 in adult ([facility]) Type 2 diabetes mellitus with peripheral neuropathy ([facility])- Primary Anxiety Anxiety state, unspecified Obstructive sleep apnea syndrome- Primary Obstructive sleep apnea (adult) (pediatric) 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 ([facility]) Type 2 diabetes mellitus with peripheral neuropathy ([facility] Essential hypertension ([facility] Unspecified essential hypertension Peripheral vascular disease ([facility] Unspecified peripheral vascular disease End stage renal disease ([facility]) End stage renal disease Acquired hypothyroidism ([facility]) Unspecified hypothyroidism Type 2 diabetes mellitus with ESRD (end-stage renal disease) ([facility]) 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, with long-term current use of insulin ([facility]) Chronic kidney disease with end stage renal disease on dialysis due to type 2 diabetes mellitus ([facility]) Anxiety Anxiety state, unspecified Dependence on renal dialysis ([facility]) Renal dialysis status Pure hypercholesterolemia ([facility]) Pure hypercholesterolemia Long-term insulin use ([facility]) Hx of amputation of lesser toe, left (HCC) ([facility]) Class 3 severe obesity due to excess calories with serious comorbidity and body mass index (BMI) of 40.0 to 44.9 in adult ([facility]) Inguinal adenopathy Enlargement of lymph nodes Lymphedema- Primary Other noninfectious lymphedema End stage renal disease ([facility]) End stage renal disease Venous stasis dermatitis documented in this encounter [facility]* Diagnosis Obstructive sleep apnea syndrome- Primary Obstructive sleep apnea (adult) (pediatric) Type 2 diabetes with nephropathy ([facility]) Type 2 diabetes mellitus with peripheral neuropathy ([facility]) 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, with long-term current use of insulin ([facility]) Long-term insulin use ([facility] 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 ([facility] Essential hypertension ([facility]) Unspecified essential hypertension Peripheral vascular disease ([facility] Unspecified peripheral vascular disease End stage renal disease ([facility]) End stage renal disease Type 2 diabetes mellitus with ESRD (end-stage renal disease) ([facility] Acquired hypothyroidism ([facility]) Unspecified hypothyroidism Dependence on renal dialysis ([facility] Renal dialysis status Pure hypercholesterolemia ([facility]) Pure hypercholesterolemia Chronic maxillary sinusitis Class 3 severe obesity due to excess calories with serious comorbidity and body mass index (BMI) of 45.0 to 49.9 in adult ([facility]) Adrenal nodule ([facility]) Benign neoplasm of adrenal gland Anxiety Anxiety state, unspecified Hx of amputation of lesser toe, left (HCC) ([facility]) Obstructive sleep apnea syndrome- Primary Obstructive sleep apnea (adult) (pediatric) Primary insomnia Persistent disorder of initiating or maintaining sleep 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 ([facility]/HCC) Type 2 diabetes mellitus with peripheral neuropathy ([facility]) Essential hypertension ([facility] Unspecified essential hypertension Peripheral vascular disease ([facility] Unspecified peripheral vascular disease End stage renal disease ([facility] End stage renal disease Acquired hypothyroidism ([facility]) Unspecified hypothyroidism Type 2 diabetes mellitus with ESRD (end-stage renal disease) ([facility]) 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, with long-term current use of insulin ([facility]) Chronic kidney disease with end stage renal disease on dialysis due to type 2 diabetes mellitus ([facility]) Dependence on renal dialysis ([facility]) Renal dialysis status Anxiety Anxiety state, unspecified Pure hypercholesterolemia ([facility]) Pure hypercholesterolemia Long-term insulin use ([facility]) Hx of amputation of lesser toe, left ([facility]) ([facility]) Other iron deficiency anemia 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 classified elsewhere ([facility]) Non-pressure chronic ulcer of other part of right foot with unspecified severity ([facility]) Type 2 diabetes mellitus with foot ulcer, with long-term current use of insulin ([facility]) Class 3 severe obesity due to excess calories with serious comorbidity and body mass index (BMI) of 40.0 to 44.9 in adult ([facility]) Type 2 diabetes mellitus with peripheral neuropathy ([facility])- Primary Anxiety Anxiety state, unspecified Obstructive sleep apnea syndrome- Primary Obstructive sleep apnea (adult) (pediatric) 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 ([facility]) Type 2 diabetes mellitus with peripheral neuropathy ([facility]) Essential hypertension ([facility]) Unspecified essential hypertension Peripheral vascular disease ([facility] Unspecified peripheral vascular disease End stage renal disease ([facility]) End stage renal disease Acquired hypothyroidism ([facility]) Unspecified hypothyroidism Type 2 diabetes mellitus with ESRD (end-stage renal disease) ([facility]) 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, with long-term current use of insulin ([facility]) Chronic kidney disease with end stage renal disease on dialysis due to type 2 diabetes mellitus ([facility]) Anxiety Anxiety state, unspecified Dependence on renal dialysis ([facility]) Renal dialysis status Pure hypercholesterolemia ([facility]) Pure hypercholesterolemia Long-term insulin use (CMS/HCC) Hx of amputation of lesser toe, left (HCC) (CMS/HCC) Class 3 severe obesity due to excess calories with serious comorbidity and body mass index (BMI) of 40.0 to 44.9 in adult (CMS/HCC) Inguinal adenopathy Enlargement of lymph nodes Bilious vomiting with nausea- Primary Type 2 diabetes mellitus with peripheral neuropathy (CMS/HCC) documented in this encounter [facility] HealthcareEvaluation note* Diagnosis Obstructive sleep [...] dialysis due to type 2 diabetes mellitus ([facility]) Dependence on renal dialysis ([facility]) Renal dialysis status Anxiety Anxiety state, unspecified Pure hypercholesterolemia ([facility]) Pure hypercholesterolemia Long-term insulin use ([facility]) Hx of amputation of lesser toe, left (HCC) ([facility]) Other iron deficiency anemia 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 classified elsewhere ([facility]) Non-pressure chronic ulcer of other part of right foot with unspecified severity ([facility]) Type 2 diabetes mellitus with foot ulcer, with long-term current use of insulin ([facility]) Class 3 severe obesity due to excess calories with serious comorbidity and body mass index (BMI) of 40.0 to 44.9 in adult ([facility]) Type 2 diabetes mellitus with peripheral neuropathy ([facility])- Primary Anxiety Anxiety state, unspecified Obstructive sleep apnea syndrome- Primary Obstructive sleep apnea (adult) (pediatric) 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 ([facility]) Type 2 diabetes mellitus with peripheral neuropathy ([facility]) Essential hypertension ([facility]) Unspecified essential hypertension Peripheral vascular disease ([facility] Unspecified peripheral vascular disease End stage renal disease ([facility]) End stage renal disease Acquired hypothyroidism ([facility]) Unspecified hypothyroidism Type 2 diabetes mellitus with ESRD (end-stage renal disease) ([facility]) 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, with long-term current use of insulin ([facility]) Chronic kidney disease with end stage renal disease on dialysis due to type 2 diabetes mellitus ([facility]) Anxiety Anxiety state, unspecified Dependence on renal dialysis ([facility]) Renal dialysis status Pure hypercholesterolemia ([facility]) Pure hypercholesterolemia Long-term insulin use ([facility]) Hx of amputation of lesser toe, left (HCC) ([facility]) Class 3 severe obesity due to excess calories with serious comorbidity and body mass index (BMI) of 40.0 to 44.9 in adult ([facility]) Inguinal adenopathy Enlargement of lymph nodes Bilious vomiting with nausea- Primary Type 2 diabetes mellitus with peripheral neuropathy ([facility]) Neuropathy- Primary Mononeuritis of unspecified site Ulcer of right heel and midfoot with fat layer exposed ([facility]) Ulcer of right foot, limited to breakdown of skin ([facility]) Type 2 diabetes mellitus with peripheral neuropathy (CMS/HCC) Chronic kidney disease due to diabetes mellitus (CMS/HCC) documented in this encounter [facility] HealthcareEvaluation note* Diagnosis Obstructive sleep apnea syndrome- Primary Obstructive sleep apnea (adult) (pediatric) Type 2 diabetes with nephropathy (CMS/HCC) Type 2 diabetes mellitus with peripheral neuropathy (CMS/HCC) 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, with long-term current use of insulin (CMS/HCC) Long-term insulin use ([facility]) 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 (CMS/HCC) Essential hypertension (CMS/HCC) Unspecified essential hypertension Peripheral vascular disease (CMS/HCC) Unspecified peripheral vascular disease End stage renal disease (CMS/HCC) End stage renal disease Type 2 diabetes mellitus with ESRD (end-stage renal disease) ([facility] [facility]) Acquired hypothyroidism (CMS/[facility]) Unspecified hypothyroidism Dependence on renal dialysis (CMS/[facility]) Renal dialysis status Pure hypercholesterolemia (CMS/[facility]) Pure hypercholesterolemia Chronic maxillary sinusitis Class 3 severe obesity due to excess calories with serious comorbidity and body mass index (BMI) of 45.0 to 49.9 in adult Adrenal nodule (CMS/HCC) Benign neoplasm of adrenal gland Anxiety Anxiety state, unspecified Hx of amputation of lesser toe, left (HCC) ([facility]) Obstructive sleep apnea syndrome- Primary Obstructive sleep apnea (adult) (pediatric) Primary insomnia Persistent disorder of initiating or maintaining sleep 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 (CMS/HCC) Type 2 diabetes mellitus with peripheral neuropathy (CMS/HCC) Essential hypertension (CMS/HCC) Unspecified essential hypertension Peripheral vascular disease (CMS/HCC) Unspecified peripheral vascular disease End stage renal disease (CMS/HCC) End stage renal disease Acquired hypothyroidism (CMS/[facility]) Unspecified hypothyroidism Type 2 diabetes mellitus with ESRD (end-stage renal disease) ([facility]) 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, with long-term current use of insulin ([facility]) Chronic kidney disease with end stage renal disease on dialysis due to type 2 diabetes mellitus (CMS/HCC) Dependence on renal dialysis (CMS/[facility]) Renal dialysis status Anxiety Anxiety state, unspecified Pure hypercholesterolemia (CMS/HCC) Pure hypercholesterolemia Long-term insulin use (CMS/[facility]) Hx of amputation of lesser toe, left (HCC) (CMS/[facility]) Other iron deficiency anemia 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 classified elsewhere ([facility]) Non-pressure chronic ulcer of other part of right foot with unspecified severity ([facility]) Type 2 diabetes mellitus with foot ulcer, with long-term current use of insulin ([facility]) Class 3 severe obesity due to excess calories with serious comorbidity and body mass index (BMI) of 40.0 to 44.9 in adult Type 2 diabetes mellitus with peripheral neuropathy (CMS/[facility])- Primary Anxiety Anxiety state, unspecified Obstructive sleep apnea syndrome- Primary Obstructive sleep apnea (adult) (pediatric) 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 ([facility]) Type 2 diabetes mellitus with peripheral neuropathy ([facility] Essential hypertension ([facility]) Unspecified essential hypertension Peripheral vascular disease ([facility]) Unspecified peripheral vascular disease End stage renal disease ([facility]) End stage renal disease Acquired hypothyroidism ([facility]) Unspecified hypothyroidism Type 2 diabetes mellitus with ESRD (end-stage renal disease) ([facility]) 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, with long-term current use of insulin ([facility]) Chronic kidney disease with end stage renal disease on dialysis due to type 2 diabetes mellitus ([facility]) Anxiety Anxiety state, unspecified Dependence on renal dialysis ([facility]) Renal dialysis status Pure hypercholesterolemia ([facility] Pure hypercholesterolemia Long-term insulin use ([facility]) Hx of amputation of lesser toe, left (HCC) ([facility]) Class 3 severe obesity due to excess calories with serious comorbidity and body mass index (BMI) of 40.0 to 44.9 in adult Inguinal adenopathy Enlargement of lymph nodes Bilious vomiting with nausea- Primary Type 2 diabetes mellitus with peripheral neuropathy (CMS/[facility]) 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 ([facility])- Primary Type 2 diabetes mellitus with peripheral neuropathy ([facility]) Obstructive sleep apnea syndrome Obstructive sleep apnea (adult) (pediatric) Essential hypertension ([facility]) Unspecified essential hypertension Peripheral vascular disease ([facility]) Unspecified peripheral vascular disease End stage renal disease ([facility]) End stage renal disease Type 2 diabetes mellitus with foot ulcer, with long-term current use of insulin ([facility]) Acquired hypothyroidism ([facility]) Unspecified hypothyroidism 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, with long-term current use of insulin (CMS/HCC) Class 3 severe obesity due to [...] amputation of lesser toe, left (HCC) (CMS/HCC) documented in this encounter [facility] HealthcareEvaluation note* Diagnosis Idiopathic peripheral neuropathy- Primary Unspecified hereditary and idiopathic peripheral neuropathy End stage renal disease (HCC) End stage renal disease Hyperkalemia Hyperpotassemia Idiopathic peripheral neuropathy Unspecified hereditary and idiopathic peripheral neuropathy [facility] Diagnosis Onset Date Resolution Status Admit Date Diabetic peripheral neuropathy acute February 13, 2025 8:20am Lumbar radiculopathy acute February 13, 2025 8:20am Other chronic pain acute February [id number] 8:20am [facility] Work Phone: Evaluation note* Diagnosis Obstructive [...] Hx of amputation of lesser toe, left ([facility]) Obstructive sleep apnea syndrome- Primary Obstructive sleep [...] anemia 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 classified elsewhere ([facility]) Non-pressure chronic ulcer of other part of right foot with unspecified severity (HCC) Type 2 diabetes mellitus with foot ulcer, with long-term current use of insulin ([facility]) Class 3 severe obesity due to excess calories with serious comorbidity and body mass index (BMI) of 40.0 to 44.9 in adult ([facility]) Type 2 diabetes mellitus with peripheral [...] Pure hypercholesterolemia Pure hypercholesterolemia Long-term insulin use ([facility]) Hx of amputation of lesser toe, left ([facility]) Class 3 severe obesity due to excess calories with serious comorbidity and body mass index (BMI) of 40.0 to 44.9 in adult ([facility]) Inguinal adenopathy Enlargement of lymph nodes [...] (BMI) of 40.0 to 44.9 in adult ([facility]-H[facility]) Chronic kidney disease with end stage renal disease on dialysis due to type 2 diabetes mellitus (HCC) Anxiety Anxiety state, unspecified Dependence on renal dialysis Renal dialysis status Pure hypercholesterolemia Pure hypercholesterolemia Long-term insulin use (HCC) Hx of amputation of lesser toe, left ([facility]) 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 Diagnosis Chronic foot pain, unspecified laterality- Primary [facility] Diagnosis Diabetic peripheral neuropathy ([facility])- Primary Type II or unspecified type diabetes mellitus with neurological manifestations, not stated as uncontrolled [facility] Diagnosis Spinal stenosis of lumbar region with neurogenic claudication- Primary Diabetic peripheral neuropathy ([facility]) Type II or unspecified type diabetes mellitus with neurological manifestations, not stated as uncontrolled Spinal stenosis of lumbar region with neurogenic claudication- Primary Spinal stenosis of lumbar region with neurogenic claudication [facility] Diagnosis Obstructive sleep apnea [...] (BMI) of 45.0 to 49.9 in adult ([facility]) Adrenal nodule (HCC) Benign neoplasm of adrenal gland Anxiety Anxiety state, unspecified Hx of amputation of lesser toe, left ([facility]) Obstructive sleep apnea syndrome- Primary Obstructive sleep [...] diabetes mellitus with ESRD (end-stage renal disease) ([facility]) Type 2 diabetes mellitus with both [...] anemia 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 classified elsewhere ([facility]) Non-pressure chronic ulcer of other part of right foot with unspecified severity ([facility]) Type 2 diabetes mellitus with foot ulcer, with long-term current use of insulin ([facility]) Class 3 severe obesity due to excess calories with serious comorbidity and body mass index (BMI) of 40.0 to 44.9 in adult ([facility]) Type 2 diabetes mellitus with peripheral [...] diabetes mellitus with ESRD (end-stage renal disease) ([facility]) 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, with long-term current use of insulin ([facility]) Chronic kidney disease with end stage renal disease on dialysis due to type 2 diabetes mellitus ([facility]) Anxiety Anxiety state, unspecified Dependence on renal dialysis Renal dialysis status Pure hypercholesterolemia Pure hypercholesterolemia Long-term insulin use (HCC) Hx of amputation of lesser toe, left ([facility]) Class 3 severe obesity due to excess calories with serious comorbidity and body mass index (BMI) of 40.0 to 44.9 in adult ([facility]) Inguinal adenopathy Enlargement of lymph nodes Bilious vomiting with nausea- Primary Type 2 diabetes mellitus with peripheral neuropathy ([facility]) 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 ([facility])- Primary Type 2 diabetes mellitus with peripheral neuropathy ([facility]) Obstructive sleep apnea syndrome Obstructive sleep apnea (adult) (pediatric) Essential hypertension Unspecified essential hypertension Peripheral vascular disease Unspecified peripheral vascular disease End stage renal disease ([facility]) End stage renal disease Type 2 diabetes mellitus with foot ulcer, with long-term current use of insulin ([facility]) Acquired hypothyroidism Unspecified hypothyroidism 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, with long-term current use of insulin ([facility]) Class 3 severe obesity due to excess calories with serious comorbidity and body mass index (BMI) of 40.0 to 44.9 in adult ([facility]) Chronic kidney disease with end stage renal disease on dialysis due to type 2 diabetes mellitus ([facility]) Anxiety Anxiety state, unspecified Dependence on renal dialysis Renal dialysis status Pure hypercholesterolemia Pure hypercholesterolemia Long-term insulin use ([facility]) Hx of amputation of lesser toe, left ([facility]) 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 ([facility]) End stage renal disease (HCC) End stage renal disease documented in this encounter [facility] HealthcareEvaluation note* Diagnosis Spinal stenosis of lumbar region with neurogenic claudication- Primary Neuropathic pain of both feet- Primary Obesity, morbid ([facility]) Morbid obesity ESRD (end stage renal disease) on dialysis ([facility]) End stage renal disease Spinal stenosis of lumbar region with neurogenic claudication [facility] Diagnosis Obstructive sleep apnea [...] diabetes mellitus with ESRD (end-stage renal disease) ([facility]) Acquired hypothyroidism Unspecified hypothyroidism Dependence on renal dialysis Renal dialysis status Pure hypercholesterolemia Pure hypercholesterolemia Chronic maxillary sinusitis Class 3 severe obesity due to excess calories with serious comorbidity and body mass index (BMI) of 45.0 to 49.9 in adult ([facility]) Adrenal nodule ([facility]) Benign neoplasm of adrenal gland Anxiety Anxiety state, unspecified Hx of amputation of lesser toe, left ([facility]) Obstructive sleep apnea syndrome- Primary Obstructive [...] diabetes mellitus with ESRD (end-stage renal disease) ([facility]) Type 2 diabetes mellitus with both [...] anemia 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 classified elsewhere ([facility]) Non-pressure chronic ulcer of other part of right foot with unspecified severity ([facility]) Type 2 diabetes mellitus with foot ulcer, with long-term current use of insulin ([facility]) Class 3 severe obesity due to excess calories with serious comorbidity and body mass index (BMI) of 40.0 to 44.9 in adult ([facility]) Type 2 diabetes mellitus with peripheral [...] diabetes mellitus with ESRD (end-stage renal disease) ([facility]) 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, with long-term current use of insulin ([facility]) Chronic kidney disease with end stage renal disease on dialysis due to type 2 diabetes mellitus ([facility]) Anxiety Anxiety state, unspecified Dependence on renal dialysis Renal dialysis status Pure hypercholesterolemia Pure hypercholesterolemia Long-term insulin use ([facility]) Hx of amputation of lesser toe, left ([facility]) Class 3 severe obesity due to excess calories with serious comorbidity and body mass index (BMI) of 40.0 to 44.9 in adult ([facility] Inguinal adenopathy Enlargement of lymph nodes Bilious vomiting with nausea- Primary Type 2 diabetes mellitus with peripheral neuropathy ([facility]) 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 ([facility])- Primary Type 2 diabetes mellitus with peripheral neuropathy ([facility]) Obstructive sleep apnea syndrome Obstructive sleep apnea (adult) (pediatric) Essential hypertension Unspecified essential hypertension Peripheral vascular disease Unspecified peripheral vascular disease End stage renal disease (HCC) End stage renal disease Type 2 diabetes mellitus with foot ulcer, with long-term current use of insulin ([facility]) Acquired hypothyroidism Unspecified hypothyroidism 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, with long-term current use of insulin ([facility]) Class 3 severe obesity due to excess calories with serious comorbidity and body mass index (BMI) of 40.0 to 44.9 in adult ([facility]) Chronic kidney disease with end stage renal disease on dialysis due to type 2 diabetes mellitus ([facility]) Anxiety Anxiety state, unspecified Dependence on renal dialysis Renal dialysis status Pure hypercholesterolemia Pure hypercholesterolemia Long-term insulin use ([facility]) Hx of amputation of lesser toe, left ([facility]) Medicare annual wellness visit, subsequent- Primary Type 2 diabetes mellitus with peripheral neuropathy (HCC) Acquired hypothyroidism Unspecified hypothyroidism Pure hypercholesterolemia Pure hypercholesterolemia Essential hypertension Unspecified essential hypertension 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, with long-term current use of insulin ([facility]) 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 ([facility]) Obstructive sleep apnea syndrome Obstructive sleep apnea (adult) (pediatric) Peripheral vascular disease Unspecified peripheral vascular disease End stage renal disease (HCC) End stage renal disease Chronic kidney disease with end stage renal disease on dialysis due to type 2 diabetes mellitus (HCC) Long-term insulin use (HCC) Hx of amputation of lesser toe, left ([facility]) Dependence on renal dialysis Renal dialysis status Anxiety Anxiety state, unspecified Other iron deficiency anemia Screening for prostate cancer Special screening for malignant neoplasm of prostate Neuropathy Mononeuritis of unspecified site documented in [facility] encounter [facility]* Diagnosis Neuropathic pain of both feet- Primary Obesity, morbid (CMS-HCC) Morbid obesity ESRD (end stage renal disease) on dialysis (CMS-HCC) End stage renal disease Neuropathic pain of both feet Spinal stenosis of lumbar region with neurogenic claudication [facility] Author Tyesha Brewster [facility] November 04, 2022 8:11pm Note Date/Time November 04, 2022 8:[address] [facility] [address] [place] [address] Hospitalist H&P Signed Patient: Evans Forte MR#: [id number] : 1970 Acct:[id number] Age/Sex: 52 / M Adm Date: 3 Loc: ER Room: Type: [facility] ER Attending Dr: Copies to: DO Delano Dhillon MD Michael R. 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 He is in preparation for peritoneal dialysis [...] protein. The patient was admitted to the [facility] floor for further evaluation and treatment [...] unit) capsule (Vitamin D3) 2,000 unitPO DAILY 10/12/19 [History Confirmed 11/04/22] ferrous sulfate 325 mg [...] % (Auto) 12.4 % (.) 11/04/22 15:11 [place] % (Auto) 9.0 % (.) 11/04/22 15:11 Eos % (Auto) 2.7 % (.) 11/04/22 15:11 Baso % (Auto) 1.1 % (.) 11/04/22 15:11 Nucleat RBC Rel Count 0.0 /100 WBC (0-0.5) 11/04/22 15:11 Neut # (Auto) 9.1 x10E3/uL (1.8-7.7) H 11/04/22 15:11 Lymph # (Auto) 1.5 x10E3/uL (1.00-4.8) 11/04/22 15:11 [place] # (Auto) 1.1 x10E3/uL (0.0-0.8) H 11/04/22 [...] pH 5.5 (5.0-9.0) 11/04/22 14:04 Ur Specific [place] 1.013 (1.001-1.030) 11/04/22 14:04 Urine Protein [...] 0-8 /LPF (0-8) 11/04/22 14:04 Documented By: Tyesah Brewster DO 11/04/22 20 07 Signed By: <Electronically signed by Tyesha Brewster DO> 11/04/222010 [facility] Work Phone: History and physical note Author Buddy Murguia [facility] November 20, 2023 10:57pm Note Date/Time November 20, 2023 10: 38pm [facility] [address] [place] [address] Hospitalist H&P Signed Patient: Evans Forte MR#: [id number] : 1970 Acct:[id number] Age/Sex: 53 / M Adm Date: 4 Loc: Room: [address] [place] [address] Type: ADM IN Attending Dr: Buddy Murguia [...] negative unless noted below or in HPI [facility] Medical History (Updated 11/20/23 @ 22:54 by [...] 2 Surgical History [place] [facility] [place] of orthopedic surgery right foot has [...] 19:00 Lymph % (Auto) N/A 11/20/23 19:00 [place] % (Auto) N/A 11/20/23 19:00 Eos % (Auto) N/A 11/20/23 19:00 Baso % (Auto) N/A 11/20/23 19:00 Nucleat RBC Rel Count N/A 11/20/23 19:00 Neut # (Auto) N/A 11/20/23 19:00 Lymph # (Auto) N/A 11/20/23 19:00 [place] # (Auto) N/A 11/20/23 19:00 Eos # [...] (0.3-1.0) 11/20/23 19:00 AST 24 U/L (13-39) 03/16/24 19:00 ALT 25 U/L (7-52) 11/20/23 19:00 [...] <Electronically signed by Buddy Murguia, > 11/20/23 025 [facility] Work Phone: Hisbwgn general Narrative - Reported* Type Description Date [...] above Hospitalization History INFECTION IN LEFT FOOT [facility] Other [facility] general Narrative - Reported* Type Description Date Medical History ANEMIA Medical History STAGE 6 CHRONIC KIDN EY DISEASAE; UNDERGOING WORK UP FOR TRANSPLANT AT [facility] 2022 Medical History HYPERTENSION Medical History HYPERLIPIDEMIA Medical History HYPOTHYROIDISM Medical History PANCREATITIS X2 Medical History 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 Surgical History HEART CATH 09/2018 Surgical History Right foot surgery 12/2018 Surgical History Left foot surgery 2018 Hospitalization History WOUND ON LEG 02/07/17 Hospitalization History see above Hospitalization History INFECTION IN LEFT FOOT Al[facility] Other history general Narrative - Reported* Type Description Date Medical History ANEMIA Medical History STAGE 5 CHRONIC KIDN EY DISEASAE; UNDERGOING WORK UP FOR TRANSPLANT AT [facility] 2022 Medical History HYPERTENSION Medical History HYPERLIPIDEMIA [...] above Hospitalization History INFECTION IN LEFT FOOT [facility] Other Hospital Discharge instructions Additional Instructions Call your primary doctor later today for follow-up appointment next week You can take trazodone to help you with your sleep as needed, use the Ativan only as needed for anxiety [facility] Work Phone: Hospital Discharge instructions Additional Instructions Bananas, rice, applesauce, toast to formed stool Follow-up with nephrology as planned on Wednesday Here if you develop any chest pain, shortness of breath, fevers, chills or any other concerns Trazodone to help you sleep as needed Zofran for nausea as needed [facility] Work Phone: Hospital Discharge instructionsAmbulatory Orders* [...] a prescription was provided. follow with your warehouse receiving supervisor for training on peritoneal dialysis [facility] Additional [...] first post-op visit, call the office at [phone] anytime. We have an answering service which will contact the doctor at anytime. -[facility] Hospital Discharge instructions Additional [...] first post-op visit, call the office at [phone] anytime. We have an answering service which will contact the doctor at anytime. -[facility] Hospital Discharge instructions Additional Instructions If your symptoms return/worsen or you develop any further concerns or symptoms please see your doctor or return to the emergency department immediately.[facility] Work Phone: Hospital Discharge instructions Additional Instructions Follow-up with your primary care doctor Return to ED for present [facility] Work [facility]: Hospital Discharge instructions Additional [...] sure you are taking medications as prescribed. [facility] Work Phone: Hospital Discharge instructions Additional Instructions Call pain management tomorrow for additional refills [facility] Hospital Discharge instructions Additional Instructions Recommend follow-up with pain management or family doctor for further evaluation of your chronic pain.[facility] Work Phone: InstructionsNot on filedocumented in this encounter [facility] filedocumented in this encounter [facility]ructionsNot on filedocumented in this encounter [facility]ructionsNot on filedocumented in this encounter [facility]ructionsNot on filedocumented in this encounter [facility] note Author Tyesha Brewster [facility] November 05, 2022 3:55pm Note Date/Time November 05, 2022 3:[address] [facility] [address] [place] [address] Hospitalist Progress Note Signed Patient: Evans Forte MR#: [id number] : 1970 Acct:[id number] Age/Sex: 52 / M Adm Date: 3 Loc: 4P Room: [address] [place] [address] Type: ADM IN Attending Dr: Tyesha Brewster DO Copies to: ~ Date of [...] Mg Tablet PO 11/06/23 07:59 DAILY.8A [facility] Heparin Sodium (Porcine) 5,000 unit 11/05/22 14:00 [...] Ml Insuln.Pen SUBCUT 11/05/23 16:59 DAILY@1700 [facility] Insulin Human Regular 70 unit 11/05/22 06:00 [...] 50 mg DAILY VINCE Administration Documented By: Tyesha Brewster DO 11/05/22 15 54 Signed By: <Electronically signed by Tyesha Brewster DO> 11/05/22 1558 [facility] Work Phone: Progress note Author Yocasta Villalba [facility] November 06, 2022 2:57pm Note Date/Time November 06, 2022 2:[address] [facility] [address] [place] [address] Nephrology Progress Note Signed Patient: Evans Forte MR#: [id number] : 1970 Acct:[id number] Age/Sex: 52 / M Adm Date: 3 Loc: 4P Room: [address] [place] [address] Type: ADM IN Attending Dr: Tyesha Brewster DO Copies to: ~ Date of Service: 11/06/2022 Subjective Subjective Narrative: This is a 52-year-old male patient with a past sickle history of chronic kidney disease stage V from diabetic nephropathy, hypertension, morbid obesity, anemia of renal disease, neuropathy. 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 hyperkalemia with potassium 5.9 [...] 152/68 H 98 Room Air 11/06/22 12:28 03/03/23 12:28 11/06/22 12:28 11/06/22 12:28 11/06/22 12:28 [...] Mg Tablet) 500 mg PO DAILY [facility] Stop: 11/05/23 08:59 Last Admin: 11/06/22 10:32 Dose: Not Given Atorvastatin Calcium (Atorvastatin 20 Mg Tablet) 20 mg PO DAILY [facility] Stop: 11/05/23 08:59 Last Admin: 11/06/22 10:32 Dose: Not Given Carvedilol (Carvedilol 25 Mg Tablet) 25 mg PO BID [facility] Stop: 11/04/23 20:59 Last Admin: 11/06/22 09:05 Dose: 25 mg Docusate Sodium (Docusate 100 Mg Capsule) 100 mg PO BID [facility] Stop: 11/06/23 20:59 Droperidol (Droperidol 5 Mg/2 Ml Vial) 1.25 mg IV-PUSH ONCE PRN PRN Reason: Nausea And Vomiting Stop: 11/06/22 16:28 Emollient Ointment (Petrolatum,White 99 Gm Oint...G.) 1 applic TOPICAL DAILY [facility] Stop: 11/05/23 09:59 Last Admin: 11/06/22 09:05 Dose: 1 applic Fenofibrate (Fenofibrate Nanocrystallized 145 Mg Tablet) 145 mg PO DAILY [facility] Stop: 11/05/23 08:59 Last Admin: 11/05/22 08:48 Dose: 145 mg Ferrous Sulfate (Ferrous Sulfate 324 Mg Tablet.Dr) 324 mg PO DAILY [facility] Stop: 11/05/23 08:59 Last Admin: 11/06/22 10:32 Dose: Not Given Folic Acid (Cyanocobalamin/Fa/Pyridoxine 1 Tab Tablet) 1 tab PO DAILY [facility] Stop: 11/05/23 08:59 Last Admin: 11/06/22 10:32 Dose: Not Given Heparin Sodium (Porcine) (Heparin 5,000 Unit/Ml Vial) 5,000 unit SUBCUT Q8HR [facility] Stop: 11/05/23 13:59 Last Admin: 11/06/22 14:15 Dose: Not Given Hydralazine HCl (Hydralazine 20 Mg/Ml Vial) 10 mg IV-PUSH Q4H PRN PRN Reason: if SBP > 185 Stop: 11/04/23 23:30 Last Admin: 11/04/22 23:40 Dose: 10 mg Hydralazine HCl (Hydralazine 50 Mg Tablet) 50 mg PO TID [facility] Stop: 11/05/23 05:59 Last Admin: 11/06/22 10:32 Dose: Not Given Sodium Chloride (0.9% Sodium Chloride 500 Ml) 500 mls @ 20 mls/hr IV ONCE ONE Stop: 11/07/22 10:00 Last Admin: 11/06/22 10:37 Dose: 20 mls/hr Ferric Sodium Gluconate Complex 250 mg/ Sodium Chloride 270 mls @ 135 mls/hr IVQAM [facility] Stop: 11/09/22 09:01 Last Infusion: 11/06/22 13:03 Dose: Infused Insulin Human Regular (Insulin Regular U-500, Human 1,500 Unit/3 Ml Insuln.Pen) 45 unit SUBCUT DAILY@1700 [facility] Stop: 11/05/23 16:59 Last Admin: 11/05/22 18:24 Dose: 45 unit Insulin Human Regular (Insulin Regular U-500, Human 1,500 Unit/3 Ml Insuln.Pen) 70 unit SUBCUT DAILY@0600 [facility] Stop: 11/05/23 05:59 Last Admin: 11/06/22 06:25 [...] Mcg Tablet) 100 mcg PO DAILY@0630 [facility] Stop: 11/05/23 06:29 Last Admin: 11/06/22 06:38 Dose: Not Given Lidocaine HCl (Lidocaine 1% 20 Ml Vial) 0.1 ml INTRADERMA PREOP PRN PRN Reason: Venipuncture Stop: 11/06/22 15:01 Lidocaine HCl (Lidocaine 1% 20 Ml Vial) 0.1 ml INTRADERMA PREOP PRN PRN Reason: Venipuncture Stop: 11/06/22 18:34 Nifedipine (Nifedipine Er.24hr 90 Mg Tab.Er.24) 90 mg PO DAILY [facility] Stop: 11/05/23 08:59 Last Admin: 11/06/22 10:32 Dose: Not Given Ondansetron HCl (Ondansetron 4 Mg/2 Ml Vial) 4 mg IV-PUSH ONCE PRN PRN Reason: Nausea/Vomiting Stop: 11/06/22 16:28 Pregabalin (Pregabalin 50 Mg Capsule) 50 mg PO DAILY [facility] Stop: 05/04/23 08:59 Last Admin: 11/06/22 10:32 Dose: Not Given Sodium Bicarbonate (Sodium Bicarbonate 650 Mg Tablet) 1,300 mg PO BID [facility] Stop: 11/05/23 10:29 Last Admin: 11/06/22 10:32 [...] a.m. Documented By: Yocasta Villalba MD 11/06/22 1451 Signed By: <Electronically signed by Yocasta Villalba MD> 11/06/22 6843 [facility] Work Phone: Progress note Author Tyesha Brewster [facility] November 06, 2022 5:26pm Note Date/Time November 06, 2022 5:[address] [facility] [address] [place] [address] Hospitalist Progress Note Signed Patient: Evans Forte MR#: [id number] : 1970 Acct:[id number] Age/Sex: 52 / M Adm Date: 3 Loc: Room: [address] [place] [address] Type: ADM IN Attending Dr: Tyesha Brewster DO Copies to: ~ Date of [...] Oint...G. TOPICAL 11/05/23 09:59 1 applic DAILY [facility] Administration Fenofibrate 145 mg 11/05/22 09:00 11/05/22 08:48 Fenofibrate Nanocrystallized 145 Mg Tablet PO 11/05/23 08:59 145 mg DAILY VINCE Administration Ferrous Sulfate 324 mg 11/05/22 09:00 11/06/22 10:32 Ferrous Sulfate 324 Mg Tablet. PO 11/05/23 08:59 Not Given DAILY VINCE Folic Acid 1 tab 11/05/22 09:00 11/06/22 10:32 Cyanocobalamin/Fa/Pyridoxine 1 Tab Tablet PO 11/05/23 08:59 Not Given DAILY [facility] Heparin Sodium (Porcine) 5,000 unit 11/05/22 14:00 11/06/22 14:15 Heparin 5,000 Unit/Ml Vial SUBCUT 11/05/23 13:59 Not Given Q8HR [facility] Hydralazine HCl 10 mg 11/04/22 23:31 11/04/22 [...] IV 11/09/22 09:01 Infused Chloride QAM [facility] Infusion Insulin Human Regular 45 unit 11/05/22 17:00 11/06/22 17:13 Insulin Regular U-500, Human 1,500 Unit/3 Ml Insuln.Pen SUBCUT 11/05/23 16:59 45 unit DAILY@1700 [facility] Administration Insulin Human Regular 70 unit 11/05/22 06:00 11/06/22 06:25 Insulin Regular U-500, Human 1,500 Unit/3 Ml Insuln.Pen SUBCUT 11/05/23 05:59 Not Given DAILY@0600 [facility] Insulin Human Regular 0 unit 11/06/22 12:34 [...] PO 11/05/23 06:29 Not Given DAILY@0630 [facility] Lidocaine HCl 0.1 ml 11/06/22 12:34 Lidocaine [...] 08:59 Not Given DAILY VINCE Documented By: Tyesha Brewster DO 11/06/22 17 24 Signed By: <Electronically signed by Tyesha Brewster DO> 11/06/22 1726 [facility] Work Phone: Progress note Author Masoud Maria [facility] November 07, 2022 8:40am Note Date/Time November 07, 2022 8:[address] [facility] [address] [place] [address] General Surgery Progress Note Signed Patient: Evans Forte MR#: [id number] : 1970 Acct:[id number] Age/Sex: 52 / M Adm Date: 3 Loc: Room: [address] [place] [address] Type: ADM IN Attending Dr: Tyesha Brewster DO Copies to: ~ Date of [...] Mg Tablet) 500 mg PO DAILY [facility] Stop: 11/05/23 08:59 Last Admin: 11/06/22 10:32 Dose: Not Given Atorvastatin Calcium (Atorvastatin 20 Mg Tablet) 20 mg PO DAILY VINCE Stop: 11/05/23 08:59 Last Admin: 11/06/22 10:32 Dose: Not Given Carvedilol (Carvedilol 25 Mg Tablet) 25 mg PO BID [facility] Stop: 11/04/23 20:59 Last Admin: 11/06/22 21:32 Dose: 25 mg Docusate Sodium (Docusate 100 Mg Capsule) 100 mg PO BID [facility] Stop: 11/06/23 20:59 Last Admin: 11/06/22 21:32 Dose: Not Given Emollient Ointment (Petrolatum,White 99 Gm Oint...G.) 1 applic TOPICAL DAILY [facility] Stop: 11/05/23 09:59 Last Admin: 11/07/22 05:55 Dose: 1 applic Fenofibrate (Fenofibrate Nanocrystallized 145 Mg Tablet) 145 mg PO DAILY [facility] Stop: 11/05/23 08:59 Last Admin: 11/05/22 08:48 Dose: 145 mg Ferrous Sulfate (Ferrous Sulfate 324 Mg Tablet.Dr) 324 mg PO DAILY [facility] Stop: 11/05/23 08:59 Last Admin: 11/06/22 10:32 Dose: Not Given Folic Acid (Cyanocobalamin/Fa/Pyridoxine 1 Tab Tablet) 1 tab PO DAILY [facility] Stop: 11/05/23 08:59 Last Admin: 11/06/22 10:32 Dose: Not Given Heparin Sodium (Porcine) (Heparin 5,000 Unit/Ml Vial) 5,000 unit SUBCUT Q8HR [facility] Stop: 11/05/23 13:59 Last Admin: 11/07/22 05:53 Dose: 5,000 unit Hydralazine HCl (Hydralazine 20 Mg/Ml Vial) 10 mg IV-PUSH Q4H PRN PRN Reason: if SBP > 185 Stop: 11/04/23 23:30 Last Admin: 11/04/22 23:40 Dose: 10 mg Hydralazine HCl (Hydralazine 50 Mg Tablet) 50 mg PO TID [facility] Stop: 11/05/23 05:59 Last Admin: 11/06/22 21:32 Dose: 50 mg Sodium Chloride (0.9% Sodium Chloride 500 Ml) 500 mls @ 20 mls/hr IV ONCE ONE Stop: 11/07/22 10:00 Last Admin: 11/06/22 10:37 Dose: 20 mls/hr Ferric Sodium Gluconate Complex 250 mg/ Sodium Chloride 270 mls @ 135 mls/hr IVQAM [facility] Stop: 11/09/22 09:01 Last Infusion: 11/06/22 13:03 Dose: Infused Insulin Human Regular (Insulin Regular U-500, Human 1,500 Unit/3 Ml Insuln.Pen) 45 unit SUBCUT DAILY@1700 [facility] Stop: 11/05/23 16:59 Last Admin: 11/06/22 17:13 Dose: 45 unit Insulin Human Regular (Insulin Regular U-500, Human 1,500 Unit/3 Ml Insuln.Pen) 70 unit SUBCUT DAILY@0600 [facility] Stop: 11/05/23 05:59 Last Admin: 11/07/22 05:54 Dose: 70 unit Labetalol HCl (Labetalol 100 Mg/20 Ml Vial) 10 mg IV-PUSH Q10M PRN PRN Reason: Hypertension Stop: 11/04/23 16:31 Last Admin: 11/04/22 21:41 Dose: 10 mg Levothyroxine Sodium (Levothyroxine 100 Mcg Tablet) 100 mcg PO DAILY@0630 [facility] Stop: 11/05/23 06:29 Last Admin: 11/07/22 05:55 Dose: 100 mcg Lorazepam (Lorazepam 2 Mg/Ml Vial) 0.5 mg IV-PUSH Q4H PRN PRN Reason: Agitation Stop: 05/05/23 16:50 Last Admin: 11/06/22 17:11 Dose: 0.5 mg Nifedipine (Nifedipine Er.24hr 90 Mg Tab.Er.24) 90 mg PO DAILY [facility] Stop: 11/05/23 08:59 Last Admin: 11/06/22 10:32 Dose: Not Given Pregabalin (Pregabalin 50 Mg Capsule) 50 mg PO DAILY [facility] Stop: 05/04/23 08:59 Last Admin: 11/06/22 10:32 [...] % (Auto) 87.5, Lymph % (Auto) 5.8, [place] % (Auto) 6.5, Eos % (Auto)0.1, Baso % (Auto) 0.1, Nucleat RBC Rel Count 0.1, Neut # (Auto) 10.9 H, Lymph #(Auto) 0.7 L, [place] # (Auto) 0.8, Eos # (Auto) 0.0, [...] % (Auto) 74.7, Lymph % (Auto) 13.3, [place] % (Auto) 9.0, Eos % (Auto) 2.5, Baso % (Auto) 0.5, Nucleat RBC Rel Count 0.1, Neut # (Auto) 10.0 H, Lymph # (Auto) 1.8, [place] # (Auto) 1.2 H, Eos # (Auto) [...] signed by Masoud Maria DO> 11/07/22 0840 [facility] Work Phone: Progress note Author Yocasta Villalba [facility] November 07, 2022 2:43pm Note Date/Time November 07, 2022 2:[address] [facility] [address] [place] [address] Nephrology Progress Note Signed Patient: Evans Forte MR#: [id number] : 1970 Acct:[id number] Age/Sex: 52 / M Adm Date: 3 Loc: Room: [address] [place] [address] Type: ADM IN Attending Dr: Tyesha Brewster DO Copies to: ~ Date of Service: 11/07/2022 Subjective Subjective Narrative: This is a 52-year-old male patient with a past sickle history of chronic kidney disease stage V from diabetic nephropathy, hypertension, morbid obesity, anemia of renal disease, neuropathy. 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 hyperkalemia with potassium 5.9 [...] Mg Capsule) 100 mg PO BID [facility] Stop: 11/06/23 20:59 Last Admin: 11/07/22 08:40 [...] Ml Vial) 40 mg IV-PUSH DAILY.8A [facility] Stop: 11/07/23 09:54 Last Admin: 11/07/22 11:23 Dose: 40 mg Heparin Sodium (Porcine) (Heparin 5,000 Unit/Ml Vial) 5,000 unit SUBCUT Q8HR [facility] Stop: 11/05/23 13:59 Last Admin: 11/07/22 13:45 Dose: 5,000 unit Hydralazine HCl (Hydralazine 20 Mg/Ml Vial) 10 mg IV-PUSH Q4H PRN PRN Reason: if SBP > 185 Stop: 11/04/23 23:30 Last Admin: 11/07/22 12:13 Dose: 10 mg Hydralazine HCl (Hydralazine 50 Mg Tablet) 100 mg PO TID [facility] Stop: 11/07/23 13:59 Last Admin: 11/07/22 13:44 Dose: 100 mg Ferric Sodium Gluconate Complex 250 mg/ Sodium Chloride 270 mls @ 135 mls/hr IVQAM [facility] Stop: 11/09/22 09:01 Last Admin: 11/07/22 09:49 Dose: 135 mls/hr Insulin Human Regular (Insulin Regular U-500, Human 1,500 Unit/3 Ml Insuln.Pen) 45 unit SUBCUT DAILY@1700 [facility] Stop: 11/05/23 16:59 Last Admin: 11/06/22 17:13 Dose: 45 unit Insulin Human Regular (Insulin Regular U-500, Human 1,500 Unit/3 Ml Insuln.Pen) 70 unit SUBCUT DAILY@0600 [facility]IN[facility] Stop: 11/05/23 05:59 Last Admin: 11/07/22 05:54 [...] signed by Yocasta Villalba MD> 11/07/22 1443 [facility] Work Phone: Progress note Author Arnol Calloway [facility] November 21, 2023 5:52pm Note Date/Time November 21, 2023 11: 07am [facility] [address] [place] [address] Hospitalist Progress Note Signed Patient: Evans Forte MR#: [id number] : 1970 Acct:[id number] Age/Sex: 53 / M Adm Date: 4 Loc: Room: [address] [place] [address] Type: ADM IN Attending Dr: Arnol Calloway [...] as neuropathy. Follows with Dr. Fonseca/podiatry in [place] but indicates has not had vascular studies [...] Mcg Capsule PO 11/22/24 08:59 TuThSa@0900 [facility] Calcium Acetate 2,668 mg 11/21/23 07:30 11/21/23 [...] 11/20/24 08:59 Not Given Packet DAILY [facility] Tirzepatide [ 5 mg 11/30/23 09:00 Mounandrewro] 5 Mg/0.5 SUBCUT 11/29/24 08:59 Ml Pen Injector Tu@0900 [facility] Ondansetron HCl 4 mg 11/20/23 21:03 Ondansetron [...] Check prealbumin. Dietitian consult ESRD on hemodialysis Tu/ Anemia of CKD Metabolic Acidosis -Nephrology on [...] <Electronically signed by Arnol Calloway MD> 11/21/23 6688 [facility] Work Phone: Progress note Author Amy Escudero [facility] November 22, 2023 12:45pm Note Date/Time November 22, 2023 10: 37am [facility] [address] [place] [address] Hospitalist Progress Note Signed Patient: Evans Forte MR#: [id number] : 1970 Acct:[id number] Age/Sex: 53 / M Adm Date: 4 Loc: Room: [address] [place] [address] Type: ADM IN Attending Dr: Amy Escudero [...] SUBCUT 11/20/24 16:29 Not Given ACHS [facility] Protocol Insulin Human Regular 50 unit 11/21/23 [...] 11/29/24 08:59 Ml Pen Injector Tu@0900 [facility] Ondansetron HCl 4 mg 11/20/23 21:03 Ondansetron [...] signed by Amy Escudero DO> 11/22/23 1245 [facility] Work Phone: Progress note Author Ada Uriostegui [facility] November 22, 2023 12:53pm Note Date/Time November 22, 2023 12: 53pm [facility] [address] [place] [address] Nephrology Progress Note Signed Patient: Evans Forte MR#: [id number] : 1970 Acct:[id number] Age/Sex: 53 / M Adm Date: 4 Loc: Room: [address] [place] [address] Type: ADM IN Attending Dr: Amy Escudero DO Copies to: ~ Date of Service: 11/22/2023 Subjective Subjective Narrative: This is a 53-year-old male patient with a past medical history of hypertension, hyperlipidemia, end-stage renal disease on TTS hemodialysis schedule at [facility], insulin-dependent diabetes mellitus, obstructive sleep [...] Skin: No rashes , warm to touch E D TECH: Awake,Alert, following simple command Musculoskeletal: No joint [...] Mg Tablet) 1 mg PO QAM [facility] Stop: 11/20/24 08:59 Last Admin: 11/22/23 08:14 Dose: 1 mg Atorvastatin Calcium (Atorvastatin 20 Mg Tablet) 20 mg PO QAM [facility] Stop: 11/20/24 08:59 Last Admin: 11/22/23 08:13 Dose: 20 mg Calcitriol (Calcitriol 0.25 Mcg Capsule) 0.25 mcg PO TuThSa@0900 [facility] Stop: 11/22/24 08:59 Calcium Acetate (Calcium Acetate 667 Mg Capsule) 2,668 mg PO AC [facility] Stop: 11/20/24 07:29 Last Admin: 11/22/23 11:21 Dose: 2,668 mg Carvedilol (Carvedilol 6.25 Mg Tablet) 6.25 mg PO BID [facility] Stop: 11/21/24 12:19 Cyanocobalamin (Cyanocobalamin 1,000 Mcg Tablet) 1,000 mcg PO DAILY [facility] Stop: 11/20/24 08:59 Last Admin: 11/22/23 08:13 Dose: 1,000 mcg Heparin Sodium (Porcine) (Heparin 5,000 Unit/Ml Vial) 5,000 unit SUBCUT Q12HR [facility] Stop: 11/20/24 08:59 Last Admin: 11/22/23 08:14 Dose: 5,000 unit Linezolid (Zyvox) 600 mg in 300 mls @ 300 mls/hr IV Q12H [facility] Last Admin: 11/22/23 08:58 Dose: 300 mls/hr Ceftriaxone Sodium (Rocephin) 2 gm in 50 mls @ 100 mls/hr IV Q24H [facility] Last Admin: 11/21/23 19:41 Dose: 100 mls/hr Insulin Aspart (Insulin Aspart 300 Units/3 Ml Insuln.Pen) [facility] Protocol Stop: 11/20/24 16:29 Last Admin: 11/22/23 11:22 Dose: 2 units Insulin Human Regular (Insulin Regular U-500, Human 1,500 Unit/3 Ml Insuln.Pen) 50 unit SUBCUT BID [facility] Stop: 11/20/24 08:59 Last Admin: 11/22/23 08:16 Dose: 50 unit Levothyroxine Sodium (Levothyroxine 100 Mcg Tablet) 100 mcg PO DAILY.0630 [facility] Stop: 11/20/24 06:29 Last Admin: 11/22/23 05:29 [...] In Packet 1 packet TRANSDERML DAILY [facility] Stop: 11/20/24 08:59 Last Admin: 11/22/23 11:21 Dose: Not Given Tirzepatide [ Mounjaro] 5 Mg/0.5 Ml Pen Injector 5 mg SUBCUT Tu@0900 [facility] Stop: 11/29/24 08:59 Ondansetron HCl (Ondansetron 4 Mg/2 Ml Vial) 4 mg IV-PUSH Q8H PRN PRN Reason: Nausea And Vomiting Stop: 11/19/24 21:02 Pregabalin (Pregabalin 150 Mg Capsule) 150 mg PO BID [facility] Stop: 05/19/24 08:59 Last Admin: 11/22/23 08:14 [...] Taqueria Reese M.D.11/21/2023 4:39 PM Dictation Location: [address] 11/22/23 07:00 IMPRESSION: NO HEMODYNAMICALLY SIGNIFICANT PERIPHERAL VASCULAR OCCLUSIVE DISEASE AT REST IN EITHER LOWER EXTREMITY. Impression dictated by: Ramirez Jean M.D.11/22/2023 10:09 AM [employer]ict[employer] Location: [place] [address] Any impression(s) listed above is documentation that [...] diabetic nephropathy. Patient has been going to [facility] on TTS for hemodialysis. Last [...] <Electronically signed by Ada Uriostegui MD> 11/22/23 1252 [facility] Work Phone: Progress note Author Ada Uriostegui [facility] November 23, 2023 12:09pm Note Date/Time November 23, 2023 10: 34am [facility] [address] [place] [address] Nephrology Progress Note Signed Patient: Evans Forte MR#: [id number] : 1970 Acct:[id number] Age/Sex: 53 / M Adm Date: 4 Loc: Room: [address] [place] [address] Type: ADM IN Attending Dr: Amy Escudero DO Copies to: ~ Date of Service: 11/23/2023 Subjective Subjective Narrative: This is a 53-year-old male patient with a past medical history of hypertension, hyperlipidemia, end-stage renal disease on TTS hemodialysis schedule at [facility], insulin-dependent diabetes mellitus, obstructive sleep [...] Skin: No rashes , warm to touch E D TECH: Awake,Alert, following simple command Musculoskeletal: No joint [...] (Anastrozole 1 Mg Tablet) [facility] [place] Stop: 11/20/24 08:59 Last Admin: 11/22/23 08:14 Dose: 1 mg Atorvastatin Calcium (Atorvastatin 20 Mg Tablet) 20 mg PO QAM [facility] Stop: 11/20/24 08:59 Last Admin: 11/22/23 08:13 Dose: 20 mg Calcitriol (Calcitriol 0.25 Mcg Capsule) 0.25 mcg PO TuThSa@0900 [facility] Stop: 11/22/24 08:59 Calcium Acetate (Calcium Acetate 667 Mg Capsule) 2,668 mg PO AC [facility] Stop: 11/20/24 07:29 Last Admin: 11/23/23 08:52 Dose: Not Given Carvedilol (Carvedilol 6.25 Mg Tablet) 6.25 mg PO BID [facility] Stop: 11/21/24 13:29 Last Admin: 11/23/23 08:53 Dose: Not Given Cyanocobalamin (Cyanocobalamin 1,000 Mcg Tablet) 1,000 mcg PO DAILY [facility] Stop: 11/20/24 08:59 Last Admin: 11/22/23 08:13 Dose: 1,000 mcg Darbepoetin Zechariah (Darbepoetin Zechariah In Polysorbat 25 Mcg/Ml Vial) 25 mcg IV-PUSHTu@0930 [facility]; Protocol Stop: 11/22/24 09:29 Furosemide (Furosemide 80 Mg Tablet) 80 mg PO BID@0800,1600 [facility] Stop: 11/21/24 15:59 Last Admin: 11/23/23 08:52 Dose: Not Given Heparin Sodium (Porcine) (Heparin 5,000 Unit/Ml Vial) 5,000 unit SUBCUT Q12HR [facility] Stop: 11/20/24 08:59 Last Admin: 11/23/23 08:53 [...] mls @ 300 mls/hr IV Q12H [facility] Last Admin: 11/22/23 21:02 Dose: 300 mls/hr Ceftriaxone Sodium (Rocephin) 2 gm in 50 mls @ 100 mls/hr IV Q24H [facility] Last Admin: 11/22/23 19:25 Dose: 100 mls/hr Sodium Chloride (0.9% Sodium Chloride 1,000 Ml) 1,000 mls @ 0 mls/hr MISCELLANE.Q0M PRN PRN Reason: Dialysis Stop: 11/22/24 09:19 Last Infusion: 11/23/23 09:43 Dose: Infused Insulin Aspart (Insulin Aspart 300 Units/3 Ml Insuln.Pen) 0 units SUBCUT ACHS [facility]; Protocol Stop: 11/20/24 16:29 Last Admin: 11/23/23 08:52 Dose: Not Given Insulin Human Regular (Insulin Regular U-500, Human 1,500 Unit/3 Ml Insuln.Pen) 50 unit SUBCUT BID [facility] Stop: 11/20/24 08:59 Last Admin: 11/23/23 08:53 Dose: Not Given Levothyroxine Sodium (Levothyroxine 100 Mcg Tablet) 100 mcg PO DAILY.0630 [facility] Stop: 11/20/24 06:29 Last Admin: 11/23/23 05:38 [...] In Packet 1 packet TRANSDERML DAILY [facility] Stop: 11/20/24 08:59 Last Admin: 11/23/23 08:53 Dose: Not Given Tirzepatide [ Mounjaro] 5 Mg/0.5 Ml Pen Injector 5 mg SUBCUT Tu@0900 [facility] Stop: 11/29/24 08:59 Ondansetron HCl (Ondansetron 4 Mg/2 Ml Vial) 4 mg IV-PUSH Q8H PRN PRN Reason: Nausea And Vomiting Stop: 11/19/24 21:02 Pregabalin (Pregabalin 50 Mg Capsule) 50 mg PO DAILY [facility] Stop: 05/21/24 08:59 Sodium Chloride (Sodium Chloride [...] diabetic nephropathy. Patient has been going to [facility] on TTS for hemodialysis. Last [...] needed Documented By: Ada Uriostegui MD 11/23/23 103 Signed By: <Electronically signed by Ada Uriostegui MD> 11/23/23 1207 [facility] Work Phone: Progress note Author Tyesha Hernández [facility] November 23, 2023 10:54am Note Date/Time November 23, 2023 10: 54am [facility] [address] [place] [address] Infect. Disease Progress Note Signed Patient: Evans Forte MR#: [id number] : 1970 Acct:[id number] Age/Sex: 53 / M Adm Date: 4 Loc: 3T Room: [address] [place] [address] Type: ADM IN Attending Dr: Amy Escudero [...] Mg Tablet) 1 mg PO QAM [facility] Stop: 11/20/24 08:59 Last Admin: 11/22/23 08:14 Dose: 1 mg Atorvastatin Calcium (Atorvastatin 20 Mg Tablet) 20 mg PO QAM [facility] Stop: 11/20/24 08:59 Last Admin: 11/22/23 08:13 Dose: 20 mg Calcitriol (Calcitriol 0.25 Mcg Capsule) 0.25 mcg PO TuThSa@0900 [facility] Stop: 11/22/24 08:59 Calcium Acetate (Calcium Acetate 667 Mg Capsule) 2,668 mg PO AC [facility] Stop: 11/20/24 07:29 Last Admin: 11/23/23 08:52 Dose: Not Given Carvedilol (Carvedilol 6.25 Mg Tablet) 6.25 mg PO BID [facility] Stop: 11/21/24 13:29 Last Admin: 11/23/23 08:53 Dose: Not Given Cyanocobalamin (Cyanocobalamin 1,000 Mcg Tablet) 1,000 mcg PO DAILY [facility] Stop: 11/20/24 08:59 Last Admin: 11/22/23 08:13 Dose: 1,000 mcg Darbepoetin Zechariah (Darbepoetin Zechariah In Polysorbat 25 Mcg/Ml Vial) 25 mcg IV-PUSHTu@0930 [facility]; Protocol Stop: 11/22/24 09:29 Furosemide (Furosemide 80 Mg Tablet) 80 mg PO BID@0800,1600 [facility] Stop: 11/21/24 15:59 Last Admin: 11/23/23 08:52 Dose: Not Given Heparin Sodium (Porcine) (Heparin 5,000 Unit/Ml Vial) 5,000 unit SUBCUT Q12HR [facility] Stop: 11/20/24 08:59 Last Admin: 11/23/23 08:53 [...] mls @ 300 mls/hr IV Q12H [facility] Last Admin: 11/22/23 21:02 Dose: 300 mls/hr Ceftriaxone Sodium (Rocephin) 2 gm in 50 mls @ 100 mls/hr IV Q24H [facility] Last Admin: 11/22/23 19:25 Dose: 100 mls/hr Sodium Chloride (0.9% Sodium Chloride 1,000 Ml) 1,000 mls @ 0 mls/hr MISCELLANE.Q0M PRN PRN Reason: Dialysis Stop: 11/22/24 09:19 Last Infusion: 11/23/23 09:43 Dose: Infused Insulin Aspart (Insulin Aspart 300 Units/3 Ml Insuln.Pen) 0 units SUBCUT ACHS [facility]; Protocol Stop: 11/20/24 16:29 Last Admin: 11/23/23 08:52 Dose: Not Given Insulin Human Regular (Insulin Regular U-500, Human 1,500 Unit/3 Ml Insuln.Pen) 50 unit SUBCUT BID [facility] Stop: 11/20/24 08:59 Last Admin: 11/23/23 08:53 Dose: Not Given Levothyroxine Sodium (Levothyroxine 100 Mcg Tablet) 100 mcg PO DAILY.0630 [facility] Stop: 11/20/24 06:29 Last Admin: 11/23/23 05:38 [...] In Packet 1 packet TRANSDERML DAILY [facility] Stop: 11/20/24 08:59 Last Admin: 11/23/23 08:53 Dose: Not Given Tirzepatide [ Mounjaro] 5 Mg/0.5 Ml Pen Injector 5 mg SUBCUT Tu@0900 [facility] Stop: 11/29/24 08:59 Ondansetron HCl (Ondansetron 4 Mg/2 Ml Vial) 4 mg IV-PUSH Q8H PRN PRN Reason: Nausea And Vomiting Stop: 11/19/24 21:02 Pregabalin (Pregabalin 50 Mg Capsule) 50 mg PO DAILY [facility] Stop: 05/21/24 08:59 Sodium Chloride (Sodium Chloride [...] for treatment for discharge planning. Documented By: Tyesha Hernández MD 11/23/23 1052 Signed By: <Electronically signed by MD Tyesha Hernández> 11/23/23 1050 [facility] Work Phone: Progress note Author Amy Escudero [facility] November 24, 2023 1:40pm Note Date/Time November 23, 2023 1:[address] [facility] [address] [place] [address] Hospitalist Progress Note Signed Patient: Evans Forte MR#: [id number] : 1970 Acct:[id number] Age/Sex: 53 / M Adm Date: 4 Loc: Room: [address] [place] [address] Type: DIS IN Attending Dr: Amy Escudero [...] Tablet PO 11/20/24 08:59 1 mg QAM VINEC Administration Atorvastatin Calcium 20 mg 11/21/23 09:00 11/22/23 08:13 Atorvastatin 20 Mg Tablet PO 11/20/24 08:59 20 mg QAM VINCE Administration Calcitriol 0.25 mcg 11/23/23 09:00 Calcitriol 0.25 Mcg Capsule PO 11/22/24 08:59 TuThSa@0900 [facility] Calcium Acetate 2,668 mg 11/21/23 07:30 11/23/23 [...] IV-PUSH 11/22/24 09:29 25 mcg Tu@0930 [facility] Administration Protocol Furosemide 80 mg 11/22/23 16:00 11/23/23 08:52 Furosemide 80 Mg Tablet PO 11/21/24 15:59 Not Given BID@0800,1600 [facility] Heparin Sodium (Porcine) 5,000 unit 11/21/23 09:00 [...] SUBCUT 11/20/24 16:29 Not Given ACHS [facility] Protocol Insulin Human Regular 50 unit 11/21/23 [...] signed by Amy Escudero DO> 11/24/23 1340 [facility] Work Phone: Progress note Author Gi Mondragon [facility] November 23, 2023 3:53pm Note Date/Time November 23, 2023 3:[address] [facility] [address] [place] [address] Podiatry Progress Note Signed Patient: Evans Forte MR#: [id number] : 1970 Acct:[id number] Age/Sex: 53 / M Adm Date: 4 Loc: Room: [address] [place] [address] Type: ADM IN Attending Dr: Amy Escudero DO Copies to: ~ Subjective Subjective Date of Service: Date of Service: 11/23/2023 Time of Service: 15:51 Narrative: Mr. Forte is a 53 year old male who was admitted due to symptoms of sepsis. Patient has a large ulceration on the bottom of the right great toe and heel. He has been following with a head swamper and family. Patient states that the ulcerations [...] large hyperkeratosis. Patient will follow-up with his head swamper and family for further wound care. Discussed [...] By: <Electronically signed by TIARA Mondragon> 11/23/23 3146 [facility] Work Phone: Progress note No data available for this section [facility] Reason for referral (narrative)No reason for referral information availableBet[facility] Work Phone: Reason for visit NarrativeSelf Referral, New patient Type 2 DM dexcom g7 cgm u500 insulin apt with [employer], TIE PULLER-C, BC-ADMNort ERCOM Other Summary Purpose Family History Relationship Condition [...] Hypertension Insulin dependent diabetes mellitus Metabolic acidosis [id number] Chief Complaint High BS R Leg Swelling vomiting/low urine output N18.5;E11.22;I12.9;N25.81;D63.1;E80.1;W87.5 abnormal labs, sent by dr CARPENTER Reason for Visit Acute hyperkalemia Acute kidney injury superimposed on CKD Chronic kidney disease CKD (chronic kidney disease) stage 5, GFR less than 15 ml/min Hyperkalemia Hypertension Insulin dependent diabetes mellitus Metabolic acidosis [id number] Chief Complaint DM E11.22 Chief Complaint DM E11.22 SOB Wheezing Chief Complaint E11.22 SOB Wheezing ESRD Reason for Visit [id number] Chief Complaint SOB Wheezing ESRD sob Reason for Visit [id number] Chief Complaint SOB Wheezing ESRD sob N18.6 Reason for Visit [id number] Chief Complaint SOB Wheezing ESRD sob N18.6 Needs Av Access; Vein Mapping Done At F ESRD ESRD, Peritoneal Dialysis Catheter Dysfunction Reason for Visit [id number] Chief Complaint SOB Wheezing ESRD sob N18.6 Needs Av Access; Vein Mapping Done At F ESRD ESRD, Peritoneal Dialysis Catheter Dysfunction ESRD, Peritoneal Dialysis Catheter Dysfunction Reason for Visit [id number] Chief Complaint ESRD sob N18.6 Needs Av Access; Vein Mapping Done At F ESRD ESRD, Peritoneal Dialysis Catheter Dysfunction ESRD, Peritoneal Dialysis Catheter Dysfunction F/U LEFT ARM AVF CREATION abdominal wound fever, low blood pressure: post dialysis Reason for Visit [id number] Dependence on renal dialysis Chief Complaint ESRD [...] Benign hypertension with end-stage renal disease Diabetes [id number] Edema of right lower extremity End stage [...] Benign hypertension with end-stage renal disease Diabetes [id number] Edema of right lower extremity End stage [...] January 01, 2025 8:[address] Vázquze back pain and neuropathy February 13, 2025 [...] section and content) DATE CREATED AUTHOR 04/03/2020 [facility] DATE CREATED AUTHOR AUTHOR'S ORGANIZ ATION 10/24/2021 [facility] Special[facility] DATE CREATED AUTHOR AUTHOR'S ORGANIZ ATION 05/14/2022 [facility] DATE CREATED AUTHOR AUTHOR'S ORGANIZ ATION 10/10/2022 [facility] DATE CREATED AUTHOR AUTHOR'S ORGANIZ ATION 12/10/2022 [facility] DATE CREATED AUTHOR AUTHOR'S ORGANIZ ATION 02/06/2025 [facility] DATE CREATED AUTHOR AUTHOR'S ORGANIZ ATION 04/28/2025 [facility] DATE CREATED AUTHOR AUTHOR'S ORGANIZ ATION 05/18/2025 [facility] DATE CREATED AUTHOR AUTHOR'S ORGANIZ ATION 05/19/2025 [facility] DATE CREATED AUTHOR AUTHOR'S ORGANIZ ATION 05/22/[address] [facility] DATE CREATED AUTHOR AUTHOR'S ORGANIZ ATION 05/23/2025 [facility] EPIC DATE CREATED AUTHOR AUTHOR'S ORGANIZ ATION 06/12/[address] [facility] DATE CREATED AUTHOR AUTHOR'S ORGANIZ ATION 06/13/2025 [facility] REASON FOR VISIT (unrecogniz ed section and content) Reason Onset Date Comments Depakote Dosage Increase 06/13/2025 Reason Comments Medicare Annual Wellness Visit Subsequen t Reason Comments Establish Care Reason Onset Date Comments Medication 04/06/2025 Reason [...] NEEDS AV ACCESS; [place] [facility] [place], Need for dialysis accessWMN VoicemailTKM Pump start and U-500 refillTKM Pump orderTKM refill requestlab result/order for tandem pumplab results,suppliesTKM LyricaTKM - REFILL REQUEST FOR LYRICAletter for [facility]ClinicalCKD and HTNCKD Care Teams (unrecognized sec [...] Yocasta Villalba MD Other Provider Active Start: liam 2023 End: November 23, 2023 Tyesha Hernández MD Other Provider Active Start: November [...] Yocasta Villalba MD Other Provider Active Start: liam 2023 End: November 23, 2023 Tyesha Hernández MD Attending Provider, Other Provider Active [...] End: October 27, 2023 Flakito High , Attending Provider Active Start : October 27, 2023 End: October 27, 2023 Team Status: Inactive Member Role Status Dates Idania Petznick , DO Primary Care Provider Active Ada Uriostegui MD Attending Provider Active Team Status: Inactive Member Role Status Dates Idania Petznick , DO Primary Care Provider Active Yosef Castillo , DO Emergency Provider Active Team Status: [...] Pettanoick , DO Primary Care Provider Active Delano Mondragon MD Emergency Provider Active Tyesha Brewster DO Admit Provider, Attending Provider Active Team Status: Inactive Member Role Status Dates Idania Petznick , DO Primary Care Provider Active Delano Mondragon MD Emergency Provider Active Tyesha Brewster DO Admit Provider, Attending Provider Active Jf Liu MD Other Provider Active Ada Uriostegui MD Other Provider Active Zenon Cage MD Other Provider Active Conor Mcnamara MD Other Provider Active Yocasta Villalba MD Other Provider Active Team Status: Inactive Member Role Status Dates Idania Petznick , DO Primary Care Provider Active Tyesha Brewster DO Attending Provider Active Team Status: Active Member Role Status Dates Idania Petznick , DO Primary Care Provider Active Michelle Kennedy APRN Attending Provider Active Team Status: Inactive Member Role Status Dates Idania Petznick , DO Primary Care Provider Active Clara Bell DO Emergency Provider Active Team Status: Inactive Member Role Status Dates Idania Petznick , DO Primary Care Provider Active Ramirez [...] September 25, 2023 End: September 26, 2023 Tyesha Sweet MD Emergency Provider Active St art: September 25, 2023 End: September 26, 2023 Team Status: Inactive Member Role Status Dates Idania Ricketts DO Primary Care Provider Active Start: September 27, 2023 End: September 27, 2023 Augusta Hill MD Attending Provider Active Start: September 27, 2023 End: September 27, 2023 Irrigation System Operator Relationship Specialty Start Date End Date Idania Ricketts DO [address] [place] [address] PCP - [facility] 09/09/22 Idania Ricketts, DO [address] [place] [address] PCP - [facility] 02/04/23 Idania Ricketts, DO [address] [place] [address] PCP - General Family Medicine 09/20/23 Irrigation System Operator Relationship Specialty Start Date End Date Idania Ricketts, DO [address] [place] [address] PCP - [facility] 09/09/22 Idania Ricketts, DO [address] [place] [address] PCP - [facility] 02/04/23 Idania Ricketts, DO [address] [place] [address] PCP - General Family Medicine 09/20/23 Team Status: Inactive Member Role Status Dates Ramirez Jean MD Attending Provider Active S tart: October 04, 2023 End: October 04, 2023 Irrigation System Operator Relationship Specialty Start Date End Date Idania Ricketts, DO [address] [place] [address] PCP - [facility] 09/09/22 Idania Ricketts, DO [address] [place] [address] PCP - [facility] 02/04/23 Idania Ricketts, DO [address] [place] [address] PCP - General Family Medicine 09/20/23 Team [...] Villalba MD Other Provider Active Start: 2023 Tyesha Hernández MD Attending Provider, Other Provider Active [...] May 15, 2024 End: May 15, 2024 Irrigation System Operator Relationship Specialty Start Date End Date Idania Ricketts DO [address] [place] [address] PCP - General Family Medicine 09/20/23 Irrigation System Operator Relationship Specialty Start Date End Date Idania Ricketts DO [address] [place] [address] PCP - General Family Medicine 09/20/23 Irrigation System Operator Relationship Specialty Start Date End Date Tesfaye Rickettskavita Mcfarlane, DO [address] [place] [address] PCP - General Family Medicine 09/20/23 Idania Ricketts Maeve, DO [address] [place] [address] [facility] 09/06/23 09/05/24 Irrigation System Operator Relationship Specialty Start Date End Date Tesfaye Rickettskavita Mcfarlane, DO [address] [place] [address] PCP - [facility] Medicine 09/20/23 Idania Ricketts, DO [address] [place] [address] [facility] 09/06/23 09/05/24 Irrigation System Operator Relationship Specialty Start Date End Date Tesfaye Rickettskavita Mcfarlane, DO [address] [place] [address] PCP - General [facility] Medicine 09/20/23 Idania Ricketts Maeve, DO [address] [place] [address] [facility] 09/06/23 09/05/24 Irrigation System Operator Relationship Specialty Start Date End Date Idania Ricketts Maeve, DO [address] [place] [address] PCP [facility] Medicine 09/20/23 Irrigation System Operator Relationship Specialty Start Date End Date Idania Ricketts Maeve, DO [address] [place] [address] PCP - General Family Medicine 09/20/23 Irrigation System Operator Relationship Specialty Start Date End Date Idania Ricketts, DO [address] [place] [address] PCP - General Family Medicine 09/20/23 Irrigation System Operator Relationship Specialty Start Date End Date Idania Ricketts, DO [address] [place] [address] PCP - General Family Medicine 09/20/23 Irrigation System Operator Relationship Specialty Start Date End Date Idania Ricketts, DO [address] [place] [address] PCP - General Family Medicine 09/20/23 Irrigation System Operator Relationship Specialty Start Date End Date Idania Ricketts, DO [address] [place] [address] PCP - General Family Medicine 09/20/23 Idania Ricketts, DO [address] [place] [address] PCP - [facility] 09/06/23 09/05/24 Irrigation System Operator Relationship Specialty Start Date End Date Idania Ricketts, DO [address] [place] [address] PCP - General Family Medicine 09/20/23 Idania Ricketts, DO [address] [place] [address] PCP - [facility] 09/06/23 09/05/24 Irrigation System Operator Relationship Specialty Start Date End Date Idania Ricketts, DO [address] [place] [address] PCP - General Family Medicine 09/20/23 Irrigation System Operator Relationship Specialty Start Date End Date Idania Ricketts, DO [address] [place] [address] PCP - General Family Medicine 09/20/23 Irrigation System Operator Relationship Specialty Start Date End Date Idania Ricketts, DO [address] [place] [address] PCP - General Family Medicine 09/20/23 Irrigation System Operator Relationship Specialty Start Date End Date Idania Ricketts, DO [address] [place] [address] PCP - General Family Medicine 09/20/23 Irrigation System Operator Relationship Specialty Start Date End Date Idania Ricketts, DO [address] [place] [address] PCP - General Family Medicine 09/20/23 Irrigation System Operator Relationship Specialty Start Date End Date Idania Ricketts, DO [address] [place] [address] PCP - General Family Medicine 09/20/23 Team [...] Attending Provider Active Start: October 29, 2024 Tyesha Hernández MD Other Provider Active Start: October 29, 2024 Jf Liu MD Other Provider Active Start: [facility] 2024 DARCI Concepcion Other Provider Active Start: October 29, 2024 Ada Uriostegui MD Other Provider Active Start: 2024 Yocasta Villalba MD Other Provider Active Start: [facility] 2024 Gi Mondragon DPM Other Provider Active [...] October 29, 2024 End: October 30, 2024 Tyesha Hernández MD Other Provider Active Start: October 29, 2024 End: October 30, 2024 Jf Liu MD Other Provider Active Start: 2024 End: October 30, 2024 DARCI Concepcion Other Provider Active Start: October 29, 2024 End: October 30, 2024 Ada Uriostegui MD Other Provider Active Start: 2024 End: October 30, 2024 Yocasta Villalba MD Other Provider Active Start: [facility] 2024 End: October 30, 2024 Gi Mondragon DPM Other Provider Active Star t: October 29, 2024 End: October 30, 2024 Irrigation System Operator Relationship Specialty Start Date End Date Idania Ricketts DO [address] [place] [address] PCP - General Family Medicine 09/20/23 Team Status: Inactive Member Role Status Dates Idania Ricketts DO Primary Care Provider Active Start: November 27, 2024 End: November 28, 2024 Venkat Burgos DO Emergency Provider Active Sta rt: November 27, 2024 End: November 28, 2024 Irrigation System Operator Relationship Specialty Start Date End Date Idania Ricketts DO [address] [place] [address] PCP - General [facility] 09/20/23 Team Status: Inactive Member Role Status [...] February 13, 2025 End: February 13, 2025 Irrigation System Operator Relationship Specialty Start Date End Date Idania Ricketts DO [address] [place] [address] PCP - [facility] 09/20/23 Team Status: Inactive Member Role Status [...] March 26, 2025 End: March 26, 2025 Irrigation System Operator Relationship Specialty Start Date End Date MarilinIdania [address] [place] [address] PCP - General 06/15/18 Team Status: Inactive Member Role Status Dates Idania Ricketts DO Primary Care Provider Active Start: April 24, 2025 End: April 24, 2025 Will Cerna PA-C Emergency Provider Active Start: April 24, 2025 End: April 24, 2025 Irrigation System Operator Relationship Specialty Start Date End Date Idania Ricketts DO [address] [id number] PCP - General 06/15/18 Irrigation System Operator Relationship Specialty Start Date End Date Marilin Idania Maeve [address] [place] [address] PCP - General 06/15/18 Irrigation System Operator Relationship Specialty Start Date End Date Tyesha Apple DO [address] [place] [address], [facility], [place] [address] PCP - General Family Medicine 05/17/25 Irrigation System Operator Relationship Specialty Start Date End Date Idania Ricketts DO [address] [address] PCP - General Family Medicine 09/20/23 Irrigation System Operator Relationship Specialty Start Date End Date Tyesha Apple DO [address] [facility], [facility], [place] [address] PCP - General Family Medicine 05/17/25 Irrigation System Operator Relationship Specialty Start Date End Date Tyesha Apple DO [address] [facility], [place] [address] PCP - General Family Medicine 05/17/25 Irrigation System Operator Relationship Specialty Start Date End Date Tyesha Apple DO [address] [facility], [place] [address] PCP - General Family Medicine 05/17/25 Irrigation System Operator Relationship Specialty Start Date End Date Idania Ricketts DO [address] [place] [address] PCP - General Family Medicine 09/20/23 Idania Ricketts DO [address] [place] [address] PCP - [facility] 09/06/23 Irrigation System Operator Relationship Specialty Start Date End Date Tyesha Apple DO [address] [facility], [place] [address] PCP - General Family Medicine 05/17/25 Goals (unrecognized section and content) Goals may be documented in a n alternate section Ordered Prescriptions (unrec ognized section and content) Prescription Sig Dispense Quantity Refills Last Filled Start Date End Date pregabalin (LYRICA) 75 MG capsuleIndications :Idiopathic peripheral neuropathy Take 1 capsule by mouth daily for 5 doses. Max Daily Amount: 75 mg 5 capsule 02/02/2025 Prescription Sig Dispense Quantity Refills Last Filled Start Date End Date HYDROcodone-acetam inophen (NORCO) 5-325 MG per tabletIndications: Chronic foot pain, unspecified laterality Take 1 tablet by mouth every 6 hours as needed for Pain for up to 3 days. Intended supply: 3 days. Take lowest dose possible to manage pain Max Daily Amount: 4 tablets 12 tablet 04/26/2025 Scheduled Active and Recently Administ ered Medications [...] BE BASED ON THE PRIMARY CLINICAL RECORDS. [employer] provides no warranty or guarantee of the accuracy or completeness of information in this document.
--- NOTE | 2025-06-16 09:30 | ED.GENADUL1 ---
HPI HPI - General Adult General Stated complaint: MED REFILL Time Seen by Provider: 06/16/25 09:13 Source: patient Mode of arrival: walk-in Limitations: no limitations History of Present Illness HPI narrative: 55-year-old male presents to the emergency department because he wants more Lyrica. Initially he told me that his dose was changed by different prescriber and he ran out. When given the information that he had a 30-day supply filled on May 22 he reported that he might have some at home. He has no new symptoms, he just wanted to get more Lyrica. He is taking this for chronic pain in his legs. No injury. Related Data Home Medications ?Medication ?Instructions ?Recorded ?Confirmed B complex 11-folic acid 1 mg-C 100 1 tab PO DAILY 08/29/24 05/14/25 mg-biotin 300 mcg-zinc 50 mg tablet (Dialyvite) anastrozole 1 mg tablet 1 mg PO DAILY 08/29/24 05/14/25 aspirin 81 mg chewable tablet 1 tab PO DAILY 08/29/24 05/14/25 atorvastatin 20 mg tablet 20 mg PO DAILY 08/29/24 05/14/25 calcitriol 0.25 mcg capsule 0.25 mcg PO QWEEK 08/29/24 05/14/25 carvedilol 6.25 mg tablet 6.25 mg PO Q12H 08/29/24 05/14/25 escitalopram oxalate 10 mg tablet 10 mg PO DAILY 08/29/24 05/14/25 furosemide 80 mg tablet 80 mg PO Q12H 08/29/24 05/14/25 insulin glargine 100 unit/mL (3 60 unit subcut QAM 08/29/24 05/14/25 mL) subcutaneous pen (Lantus Solostar U-100 Insulin) insulin lispro 100 unit/mL 10 unit subcut .meal 08/29/24 05/14/25 subcutaneous pen (Humalog KwikPen (U-100) Insulin) levothyroxine 100 mcg tablet 100 mcg PO DAILY 08/29/24 05/14/25 pregabalin 150 mg capsule 150 mg PO TID 08/29/24 06/16/25 sevelamer carbonate 800 mg tablet 800 mg PO TID 08/29/24 04/10/25 tenapanor 30 mg tablet (Xphozah) 30 mg PO DAILY 08/29/24 05/14/25 testosterone 1.62 % (20.25 mg/1.25 1 packet topical DAILY 08/29/24 04/10/25 gram) transdermal gel packet methocarbamol 500 mg tablet 500 mg PO Q8H PRN back spasms 01/02/25 04/10/25 midodrine 10 mg tablet 10 mg PO .during dialysis PRN low 01/02/25 04/10/25 bp bumetanide 2 mg tablet 2 mg PO Q12H 04/06/25 05/14/25 calcium acetate(phosphat bind) 667 1,334 mg PO DAILY TID 04/06/25 05/14/25 mg capsule Previous Rx's ?Medication ?Instructions ?Recorded hydrocodone 5 mg-acetaminophen 325 1 tab PO Q6H PRN pain #5 tabs 04/20/25 mg tablet Allergies Allergy/AdvReac Type Severity Reaction Status Date / Time vancomycin AdvReac Severe rash Verified 06/16/25 09:07 adhesive AdvReac Intermediate rash Verified 06/16/25 09:07 latex AdvReac Mild Rash Verified 06/16/25 09:07 sunflower seed AdvReac Mild Congested Verified 06/16/25 09:07 Opioid HPI Opioid Management Most Recent Opioid Data: Last Pain Scale 10 05/14/25, 22:31 Review of Systems ROS Narrative A ten point review of systems is negative except as noted above. 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 General:The patient is standing in the room in no distress. Skin:Warm, dry, no pallor noted.There is no rash noted. Head:Normocephalic, atraumatic Eye: Normal conjunctiva, no drainage Ears, Nose, Mouth, and Throat: oral mucosa is moist. Nares patent. Cardiovascular:Regular Rate and Rhythm Respiratory:Patient is in no distress, no accessory muscle use GI: Nondistended Musculoskeletal: Joints have good range of motion Neurological: Awake and alert Psychiatric:Cooperative Constitutional Vital Signs, click to edit/add: Last Vital Signs Temp 97.8 F 06/16/25 09:12 Pulse 72 06/16/25 09:12 Resp 20 06/16/25 09:12 BP 199/102 H 06/16/25 09:12 Pulse Ox 98 06/16/25 09:12 Course Vital Signs Vital signs: Vital Signs Temperature 97.8 F 06/16/25 09:12 Pulse Rate 72 06/16/25 09:12 Respiratory Rate 20 06/16/25 09:12 Blood Pressure 199/102 H 06/16/25 09:12 Pulse Oximetry 98 06/16/25 09:12 Temperature 97.8 F 06/16/25 09:12 Pulse Rate 72 06/16/25 09:12 Respiratory Rate 20 06/16/25 09:12 Blood Pressure 199/102 H 06/16/25 09:12 Pulse Oximetry 98 06/16/25 09:12 Medical Decision Making MDM Narrative Medical decision making narrative: I have reviewed his prescription history and he should still have a 5-day supply of this medication. He was informed that medication such as Lyrica would need to come from his prescribing physician rather than the emergency department. I did not prescribe him any medication. I have concerns about drug-seeking behavior in this patient. Differential Diagnosis Differential Diagnosis: Medication refill, drug-seeking behavior Discharge Plan Discharge Clinical Impression: Chronic pain Patient Disposition: Home, Self-Care Time of Disposition Decision: 09:29 Condition: Good Mode of Transportation: Private Vehicle Prescriptions / Home Meds: No Action methocarbamol 500 mg tablet 500 mg PO Q8H PRN (Reason: back spasms) midodrine 10 mg tablet 10 mg PO .during dialysis PRN (Reason: low bp) hydrocodone-acetaminophen 5-325 mg tablet 1 tab PO Q6H PRN (Reason: pain) Qty: 5 0RF anastrozole 1 mg tablet 1 mg PO DAILY aspirin 81 mg tablet,chewable 1 tab PO DAILY atorvastatin 20 mg tablet 20 mg PO DAILY Dialyvite [id number] [id number]-mg tablet 1 tab PO DAILY calcitriol 0.25 mcg capsule 0.25 mcg PO QWEEK carvedilol 6.25 mg tablet 6.25 mg PO Q12H escitalopram oxalate 10 mg tablet 10 mg PO DAILY pregabalin 150 mg capsule 150 mg PO TID furosemide 80 mg tablet 80 mg PO Q12H insulin glargine [Lantus Solostar U-100 Insulin] 100 unit/mL (3 mL) insulin pen 60 unit SUBCUT QAM insulin lispro [Humalog KwikPen Insulin] 100 unit/mL insulin pen 10 unit SUBCUT .meal Patient Comments: unknown ? levothyroxine 100 mcg tablet 100 mcg PO DAILY sevelamer carbonate 800 mg tablet 800 mg PO TID Xphozah 30 mg tablet 30 mg PO DAILY testosterone 1.62 % (20.25 mg/1.25 gram) gel in packet 1 packet topical DAILY bumetanide 2 mg tablet 2 mg PO Q12H calcium acetate(phosphat bind) 667 mg capsule 1,334 mg PO DAILY Print Language: Georgian Instructions: Chronic Pain (ED) Additional Instructions: Medication such as [place] and Lyrica will need to come from your prescribing physician rather than the emergency department. Referrals: ANGEL RICKETTS [Primary Care Provider, Family Practice] - 1 week
== END 2025-06-16 09:40 | disposition home or self-care (01) ==
PROVIDERS: Emergency Provider Emergency Medicine; PCP Family Medicine
DX: G89.29 Other chronic pain (principal)
CPT/HCPCS: 99281